=== PATIENT | male | born 1945 | race Caucasian/White ===

== ENCOUNTER 2020-01-20 19:51 | Inpatient (IN) ==
--- NOTE | 2020-01-20 20:17 | CT Scan Report ---
CT head/brain wo con CLINICAL HISTORY: Stroke evaluation LEFT ARM WEAKNESS COMPARISON STUDY: No previous studies for comparison. TECHNIQUE: Axial CT of the brain is performed from the vertex to the skull base. IV contrast was not administered for this examination. A dose lowering technique was utilized adhering to the principles of ALARA. CT DOSE: FINDINGS: No intra or extra-axial mass lesions are visualized. There is no CT evidence of acute cortical infarc tion. There is no evidence of midline shift. There is no acute hemorrhage. No calvarial fractures ar e visualized. There are minor white matter hypodensities likely on a small vessel basis. There is no evidence of pathologic ventricular dilatation. There is no evidence of acute sinusitis IMPRESSION: No acute intracranial findings ACT 112: Negative or not required by law. Electronically signed by: Rodriguez Veloz M.D. 01/20/2020 8:16 PM
[2020-01-20 20:19] LABS: Basophils # (auto) 0.01 K/uL (0-0.2); Basophils % (auto) 0.1 %; Eosinophils # (auto) 0.06 K/uL (0-0.5); Eosinophils % (auto) 0.8 %; Hematocrit (blood only) 37.3 % (42-52); Hemoglobin 12.3 g/dL (14.0-18.0); Immature Granulocytes # (auto) 0.26 K/uL (0.00-0.02); Immature Granulocytes % (auto) 3.4 %; Lymphocytes # (auto) 1.13 K/uL (1.2-3.4); Lymphocytes % (auto) 14.8 %; Mean Corpuscular Hemoglobin 28.1 pg (25-34); Mean Corpuscular Volume 85.2 fL (80-100); Mean Platelet Volume 9.8 fL (7.4-10.4); Monocytes % (auto) 3.9 %; Neutrophils # (auto) 5.87 K/uL (1.4-6.5); Platelet Count 169 K/uL (130-400); RDW Coefficient of Variation 17.6 % (11.5-14.5); RDW Standard Deviation 54.8 fL (36.4-46.3); Red Blood Count 4.38 M/uL (4.7-6.1); White Blood Count 7.63 K/uL (4.8-10.8)
[2020-01-20] MEDS ORDERED: ONDANSETRON INJ 2 MG/ML 2 ML VIAL IV STA (20:24)
[2020-01-20 20:26] LABS: iSTAT Creatinine 1.5 mg/dl (0.6-1.3); iSTAT Hemoglobin 12.6 g/dl (14.0-18.0); iSTAT Ionized Calcium 1.22 mmol/l (1.12-1.32); iSTAT Potassium 3.9 mmol/L (3.3-5.0)
[2020-01-20 20:36] LABS: INR 1.8 (0.9-1.1); Partial Thromboplastin Time 26.7 Seconds (21.0-31.0); Prothrombin Time 18.8 Seconds (9.0-12.0)
[2020-01-20 20:38] LABS: Alanine Aminotransferase 190 U/L (12-78); Albumin Level 3.3 gm/dl (3.4-5.0); Aspartate Aminotransferase 106 U/L (15-37); BUN Creatinine Ratio 22.5 (10-20); Blood Urea Nitrogen 38 mg/dl (7-18); Calcium 8.8 mg/dl (8.5-10.1); Carbon Dioxide 27 mmol/L (21-32); Chloride 107 mmol/L (98-107); Est GFR (African American) 44.7; Est GFR (Non-African American) 38.6; Glucose 172 mg/dl (70-99); Magnesium 2.4 mg/dl (1.8-2.4); Sodium 142 mmol/L (136-145)
[2020-01-20 20:43] LABS: Albumin Globulin Ratio 1.1 (0.9-2); Alkaline Phosphatase 103 U/L (45-117); Bilirubin,Total 0.5 mg/dl (0.2-1); Globulin 3.1 gm/dl (2.5-4.0); Total Protein 6.4 gm/dl (6.4-8.2); Troponin I < 0.015 ng/ml (0-0.045)
--- NOTE | 2020-01-20 21:42 | Emergency Department Note ---
History of Present Illness General Chief complaint: TIA Symptoms Stated complaint: BLURRY VISION,SLURRED SPEECH Time Seen by Provider: 01/20/20 19:58 History of Present Illness Provider complaint: Slurred speech facial droop Onset (ago): hour(s) 1 Location: head Associated symptoms: + weakness; no chest pain, no fever/chills, no headaches, no rash, no seizure and no shortness of breath 74-year-old male presents emergency department with facial droop weakness and slurred speech. Son at bedside reports the patient's symptoms patient symptoms began 1 hour ago after eating eating. Patient denies any fevers. Mild headache. Patient is on Coumadin. Patient also has a history of a ascending thoracic aortic aneurysm. Patient reports he had urinary incontinence yesterday. Currently denies any numbness or tingling. Currently denies any back pain. Patient is visiting his son from [facility]. Home Medications Home Medications Medication Instructions Recorded Confirmed Type albuterol sulfate [Ventolin HFA] 2 puff INHALATION Q4H PRN 01/20/20 01/20/20 His tory allopurinol 200 mg PO HS 01/20/20 01/20/20 History atorvastatin 80 mg PO HS 01/20/20 01/20/20 History azithromycin 250 mg PO 3XWK 01/20/20 01/20/20 History mrpqweg-[id number]-yrjf 1 tab PO DAILY 01/20/20 01/20/20 History cholecalciferol (vitamin D3) 2,000 unit PO DAILY 01/20/20 01/20/20 History [Vitamin D3] dulaglutide [Trulicity] 1.5 mg SUBCUT WK 01/20/20 01/20/20 History finasteride 5 mg PO QAM 01/20/20 01/20/20 History fluticasone propion-salmeterol 1 inh INHALATION Q12H 01/20/20 01/20/20 History [Wixela Inhub] gabapentin 300 mg PO BID 01/20/20 01/20/20 History insulin aspart U-100 See Rx Instructions .ROUTE .COMPLEX 01/20/20 01/20/20 History insulin degludec [Tresiba 100 unit SUBCUT QPM 01/20/20 01/20/20 History FlexTouch U-200] ipratropium-albuterol 3 ml INHALATION QID PRN 01/20/20 01/20/20 History isosorbide mononitrate 30 mg PO QAM 01/20/20 01/20/20 History nitroglycerin 0.4 mg SUBLINGUAL DIRECTED PRN 01/20/20 01/20/20 History omeprazole 40 mg PO QAM 01/20/20 01/20/20 History potassium chloride 10 meq PO BIDM 01/20/20 01/20/20 History prednisone 10 mg PO BID 01/20/20 01/20/20 History psyllium [Metamucil] 1 packet PO QAM 01/20/20 01/20/20 History topiramate [Topamax] 25 mg PO BID 01/20/20 01/20/20 History torsemide 20 mg PO DAILY 01/20/20 01/20/20 History trazodone 50 mg PO HS PRN 01/20/20 01/20/20 History Allergies Allergy/AdvReac Type Severity Reaction Status Date / Time Iodinated Contrast Media Allergy Severe Anaphylaxis Verified 01/20/20 21:36 shellfish derived Allergy Severe Anaphylaxis Verified 01/20/20 21:36 Tetanus Vaccines and Toxoid Allergy Unknown Unknown Verified 01/20/20 21:36 Past Med/Surg History Medical History (Updated 01/20/20 @ 21:54 by Camacho Theodore) Diabetes HLD (hyperlipidemia) Thoracic ascending aortic aneurysm Surgical History (Updated 01/20/20 @ 21:36 by Camacho Theodore) History of cholecystectomy History of gastric bypass Social History Smoking Status: Never smoker Feels Safe at Home: Yes Review of Systems A total of 10 systems reviewed and were otherwise negative Physical Exam Vital Signs Vital Signs - 24 hr 01/20/20 19:53 01/20/20 20:30 Temperature 36.4 C L Temperature Source Oral Pulse Rate 73 Pulse Rate [Apical] 74 Respiratory Rate 20 21 Blood Pressure 162/85 H Blood Pressure [Right Arm] 157/85 H Blood Pressure Mean 110 Blood Pressure Mean [Right Arm] 109 Blood Pressure Position Sitting Pulse Oximetry 100 99 Oxygen Delivery Method Room Air Sepsis Recent Fever Within 48 Hours No Sepsis New/Unexplained Change in Mental Status No Sepsis Action Taken by Nursing No Action Required Physical Exam GENERAL: He is oriented to person, place, and time. He appears well-developed and well-nourished. He does not appear distressed. HENT: Exam performed. - Head: Normocephalic and atraumatic. - Right Ear: External ear normal. No mastoid tenderness. - Left Ear: External ear normal. No mastoid tenderness. - Mouth/Throat: The oropharynx is clear and moist. No trismus in the jaw. No dental abscesses or uvula swelling. No oropharyngeal exudate or tonsillar abscesses. EYES: Conjunctivae and EOM are normal. Pupils are equal, round, and reactive to light. Right eye exhibits no discharge. Left eye exhibits no discharge. No scleral icterus. NECK: Normal range of motion. Neck supple. No JVD present. No spinous process tenderness present. No carotid bruit present. No rigidity. No tracheal deviation and normal range of motion present. No Brudzinski's sign and no Kernig's sign noted. CV: Normal rate, regular rhythm, normal heart sounds and intact distal pulses. There is no peripheral edema. Palpable radial pulses bue. PULM/CHEST: Effort normal and breath sounds normal. No respiratory distress. No stridor. He has no wheezes. He has no rales. - Chest Wall: He exhibits no tenderness. ABD: The abdomen is soft. Bowel sounds are normal. He has no distension. No mass is present. There is no tenderness. There is no rebound, no guarding, no Yi's sign and no tenderness at McBurney's point. Rovsig negative. MUSC/SKEL: Normal range of motion. There is no peripheral edema, tenderness or deformity. LYMPH: No cervical adenopathy. NEURO: He is alert and oriented to person, place, and time. NIHSS 4 (4:1 5A:1 9:1 10:1) SKIN: Skin is warm and dry. He is not diaphoretic. PSYCH: He has a normal mood and affect. Behavior is normal. Judgment and thought content normal. Course Course 1957: The patient was evaluated in room C12. A complete history and physical exam was performed. Patient was immediately seen in room C 12. Patient was placed on cardiac care nurse and large IV bore access was obtained. Patient has an NIH stroke scale of 4. Given his symptoms began 1 hour ago the patient will be taken for emergent CAT scan. Code stroke was called on the patient. Patient is on Coumadin. His last Coumadin level in the computer was 2.1. If his Coumadin is elevated patient will not be a TPA candidate but we will discuss with [facility] tele-neurology. 2018: I accompanied the patient to CT scan where he states he has an an aphylactic reaction to IV contrast. Given this, no CTA of the head and neck were performed as code stroke protocols. 2020: CT of the head viewed by me shows no large ICH. Discussed with Dr. Yomi Caputo tele-neurology who states she will evaluate the patient. 2051: Discussed with [facility] tele-neurology Dr. Celaya who states when she evaluate the patient patient is in a stroke scale 6. She states patient not a TPA candidate given his elevated INR level. She also recommends that the griffin ent be admitted to the hospital service with neurology consult. She recommends MRI of the head and MRA of the head. She also recommends MRI of the L-spine because the patient reported to her that he had urinary incontinence yesterday. I informed her that the patient has not reported any back pain and has not had any saddle anesthesia or paresthesias however Dr. Celaya still recommends MRI of the L-spine. It is thought that it is unlikely that the patient had true cord compression however we will follow the recommendations of tele-neurology. I discussed the case with [facility] hospitalist Dr. Dong who agreed to accept the patient for admission. She states that we can order the MRIs in the emergency department and she will follow-up on the MRI results on the floor if a bed is available. Administered Medications Discontinued Medications Acetaminophen (Ofirmev) 1,000 mg in 100 mls @ 400 mls/hr IV NOW STA Stop: 01/20/20 22:53 Last Infusion: 01/20/20 23:11 Dose: 0 mls/hr Documented by: [id number] Admin: 01/20/20 22:56 Dose: 400 mls/hr Documented by: [id number] Ondansetron HCl (Ondansetron Inj 2 Mg/Ml 2 Ml Vial) 4 mg IV NOW STA Stop: 01/20/20 20:25 Last Admin: 01/20/20 20:27 Dose: 4 mg Documented by: [id number] Critical Care Time Critical Care Time: Yes Total Critical Care Time: 49 I have personally spent greater than 49 minutes of critical care time in the direct management of this patient. This includes bedside care, interpretation of diagnostic studies, and testing, discussion with consultants, patient, and family members, and other required patient management activities. This 49 minutes is in excess of all separately billable procedures. Medical Decision Making Laboratory Data Result diagrams: 01/20/20 20:02 01/20/20 20:02 Lab Results 01/20/20 01/20/20 01/20/20 Range/Units 20:02 20:02 20:02 WBC 7.63 (4.8-10.8) K/uL RBC 4.38 L (4.7-6.1) M/uL Hgb 12.3 L (14.0-18.0) g/dL POC Hgb (14.0-18.0) g/dl Hct 37.3 L (42-52) % POC Hct (42-52) % MCV 85.2 (80-100) fL MCH 28.1 (25-34) pg MCHC 33.0 (32-36) g/dL RDW Std Deviation 54.8 H (36.4-46.3) fL RDW Coeff of Lianne 17.6 H (11.5-14.5) % Plt Count 169 (130-400) K/uL MPV 9.8 (7.4-10.4) fL Immature Gran % (Auto) 3.4 % Neut % (Auto) 77.0 % Lymph % (Auto) 14.8 % Early % (Auto) 3.9 % Eos % (Auto) 0.8 % Baso % (Auto) 0.1 % Neut # (Auto) 5.87 (1.4-6.5) K/uL Lymph # (Auto) 1.13 L (1.2-3.4) K/uL Early # (Auto) 0.30 (0.11-0.59) K/uL Eos # (Auto) 0.06 (0-0.5) K/uL Baso # (Auto) 0.01 (0-0.2) K/uL Immature Gran # (Auto) 0.26 H (0.00-0.02) K/uL PT 18.8 H (9.0-12.0) Seconds POC INR (0.9-1.1) INR 1.8 H (0.9-1.1) APTT 26.7 (21.0-31.0) Seconds PTT Ratio 1.0 POC Sodium (135-144) mmol/L Sodium 142 (136-145) mmol/L POC Potassium (3.3-5.0) mmol/L Potassium 4.0 (3.5-5.1) mmol/L POC Chloride (101-112) mmol/L Chloride 107 (98-107) mmol/L Carbon Dioxide 27 (21-32) mmol/L POC Total CO2 (24-31) mmol/L Anion Gap 8.0 (3-11) POC Anion Gap (16-25) mmol/L POC BUN (7-18) mg/dl BUN 38 H (7-18) mg/dl Creatinine 1.71 H (0.6-1.4) mg/dl POC Creatinine (0.6-1.3) mg/dl Est Cr Clr Drug Dosing Not Reportable Est GFR ( Amer) 44.7 Est GFR (Non-Af Amer) 38.6 BUN/Creatinine Ratio 22.5 H (10-20) Glucose 172 H (70-99) mg/dl POC Glucose (other) (70-99) mg/dl Calcium 8.8 (8.5-10.1) mg/dl POC Ioniz Calcium Dewey (1.12-1.32) mmol/l Magnesium 2.4 (1.8-2.4) mg/dl Total Bilirubin 0.5 (0.2-1) mg/dl AST 106 H (15-37) U/L ALT 190 H (12-78) U/L Alkaline Phosphatase 103 (45-117) U/L Troponin I < 0.015 (0-0.045) ng/ml Total Protein 6.4 (6.4-8.2) gm/dl Albumin 3.3 L (3.4-5.0) gm/dl Globulin 3.1 (2.5-4.0) gm/dl Albumin/Globulin Ratio 1.1 (0.9-2) Blood Type Antibody Screen 01/20/20 01/20/20 01/20/20 Range/Units 20:14 20:16 20:22 WBC (4.8-10.8) K/uL RBC (4.7-6.1) M/uL Hgb (14.0-18.0) g/dL POC Hgb 12.6 L (14.0-18.0) g/dl Hct (42-52) % POC Hct 37 L (42-52) % MCV (80-100) fL MCH (25-34) pg MCHC (32-36) g/dL RDW Std Deviation (36.4-46.3) fL RDW Coeff of Lianne (11.5-14.5) % Plt Count (130-400) K/uL MPV (7.4-10.4) fL Immature Gran % (Auto) % Neut % (Auto) % Lymph % (Auto) % Early % (Auto) % Eos % (Auto) % Baso % (Auto) % Neut # (Auto) (1.4-6.5) K/uL Lymph # (Auto) (1.2-3.4) K/uL Early # (Auto) (0.11-0.59) K/uL Eos # (Auto) (0-0.5) K/uL Baso # (Auto) (0-0.2) K/uL Immature Gran # (Auto) (0.00-0.02) K/uL PT (9.0-12.0) Seconds POC INR 1.9 H (0.9-1.1) INR (0.9-1.1) APTT (21.0-31.0) Seconds PTT Ratio POC Sodium 140 (135-144) mmol/L Sodium (136-145) mmol/L POC Potassium 3.9 (3.3-5.0) mmol/L Potassium (3.5-5.1) mmol/L POC Chloride 104 (101-112) mmol/L Chloride (98-107) mmol/L Carbon Dioxide (21-32) mmol/L POC Total CO2 24 (24-31) mmol/L Anion Gap (3-11) POC Anion Gap 17.0 (16-25) mmol/L POC BUN 34 H (7-18) mg/dl BUN (7-18) mg/dl Creatinine (0.6-1.4) mg/dl POC Creatinine 1.5 H (0.6-1.3) mg/dl Est Cr Clr Drug Dosing Est GFR ( Amer) Est GFR (Non-Af Amer) BUN/Creatinine Ratio (10-20) Glucose (70-99) mg/dl POC Glucose (other) 165 H (70-99) mg/dl Calcium (8.5-10.1) mg/dl POC Ioniz Calcium Dewey 1.22 (1.12-1.32) mmol/l Magnesium (1.8-2.4) mg/dl Total Bilirubin (0.2-1) mg/dl AST (15-37) U/L ALT (12-78) U/L Alkaline Phosphatase (45-117) U/L Troponin I (0-0.045) ng/ml Total Protein (6.4-8.2) gm/dl Albumin (3.4-5.0) gm/dl Globulin (2.5-4.0) gm/dl Albumin/Globulin Ratio (0.9-2) Blood Type O Positive Antibody Screen NEGATIVE Imaging Data Radiologist's Impression: CT head/brain wo con CLINICAL HISTORY: Stroke evaluation LEFT ARM WEAKNESS COMPARISON STUDY: No previous studies for comparison. TECHNIQUE: Axial CT of the brain is performed from the vertex to the skull base. IV contrast was not administered for this examination. A dose lowering technique was utilized adhering to the principles of ALARA. CT DOSE: FINDINGS: No intra or extra-axial mass lesions are visualized. There is no CT evidence of acute cortical infarction. There is no evidence of midline shift. There is no a cute hemorrhage. No calvarial fractures are visualized. There are minor white matter hypodensities likely on a small vessel basis. There is no evidence of pathologic ventricular dilatation. There is no evidence of acute sinusitis IMPRESSION: No acute intracranial findings ACT 112: Negative or not required by law. Electronically signed by: Rodriguez Veloz M.D. 01/20/2020 8:16 PM Dictated: 01/20/202014 Transcribed: 01/20/202014 ECG Data Indication: + other (Stroke) Rate (beats per minute): 72 Rhythm: + normal sinus ECG Intervals/blocks: + Normal QRS, + Normal NE and + Normal QT-c ECG ST segments: no ST depression and no ST elevation ECG Findings: + PVCs Additional Comments: Baseline artifact due to patient movement MDM Narrative 1958: The patient was evaluated in room C12. A complete history and physical exam was performed. Patient was immediately seen in room C 12. Patient was placed on cardiac care nurse and large IV bore access was obtained. Patient has an NIH stroke scale of 4. Given his symptoms began 1 hour ago the patient will be taken for emergent CAT scan. Code stroke was called on the patient. Patient is on Coumadin. His last Coumadin level in the computer was 2.1. If his Coumadin is elevated patient will not be a TPA candidate but we will discuss with [facility] tele-neurology. 2018: I accompanied the patient to CT scan where he states he has an anaphylactic reaction to IV contrast. Given this, no CTA of the head and neck were performed as code stroke protocols. 2020: CT of the head viewed by me shows no large ICH. Discussed with Dr. Yomi Caputo tele-neurology who states she will evaluate the patient. 2051: Discussed with [facility] tele-neurology Dr. Celaya who states when she evaluate the patient patient is in a stroke scale 6. She states patient not a TPA candidate given his elevated INR level. She also recommends that the patient be admitted to the hospital service with neurology consult. She recommends MRI of the head and MRA of the head. She also recommends MRI of the L-spine because the patient reported to her that he had urinary incontinence yesterday. I informed her that the patient has not reported any back pain and has not had any saddle anesthesia or paresthesias however Dr. Celaya still recommends MRI of the L-spine. It is thought that it is unlikely that the patient had true cord compression however we will follow the recommendations of tele-neurology. I discussed the case with [facility] hospitalist Dr. Dong who agreed to accept the patient for admission. She states that we can order the MRIs in the emergency department and she will follow-up on the MRI results on the floor if a bed is available. Impression & Plan Cerebrovascular accident Discharge Plan Visit Data Chief Complaint: TIA Symptoms Stated Complaint: BLURRY VISION,SLURRED SPEECH ED Provider: Camacho Theodore Discharge Problem: Cerebrovascular accident Patient Disposition: Admitted As Inpatient Forms Stand Alone Forms: My [facility] Prescriptions Prescriptions: No Action fluticasone propion-salmeterol [Wixela Inhub] 250-50 mcg/dose Blister With Device 1 inh INHALATION Q12H RF: 0 atorvastatin 80 mg Tablet 80 mg PO HS RF: 0 ipratropium-albuterol 0.5 mg-3 mg(2.5 mg base)/3 mL Solution For Nebulization 3 ml INHALATION QID PRN (Reason: Shortness Of Breath Or Wheezing) RF: 0 torsemide 20 mg Tablet 20 mg PO DAILY RF: 0 trazodone 50 mg Tablet 50 mg PO HS PRN (Reason: Sleep) RF: 0 azithromycin 250 mg Tablet 250 mg PO 3XWK RF: 0 isosorbide mononitrate 30 mg Tablet Extended Release 24 Hr 30 mg PO QAM RF: 0 Metamucil Packet 1 packet PO QAM RF: 0 prednisone 5 mg Tablet 10 mg PO BID RF: 0 topiramate [Topamax] 25 mg Tablet 25 mg PO BID RF: 0 potassium chloride 10 mEq Tablet Extended Release 10 meq PO BIDM RF: 0 allopurinol 100 mg Tablet 200 mg PO HS RF: 0 omeprazole 40 mg Capsule,Delayed Release(Dr/Ec) 40 mg PO QAM RF: 0 nitroglycerin 0.4 mg Tablet, Sublingual 0.4 mg sublingual DIRECTED PRN (Reason: Chest Pain) RF: 0 gabapentin 300 mg Capsule 300 mg PO BID RF: 0 albuterol sulfate [Ventolin HFA] 90 mcg/actuation Hfa Aerosol Inhaler 2 puff INHALATION Q4H PRN (Reason: Wheezing) RF: 0 finasteride 5 mg Tablet 5 mg PO QAM RF: 0 insulin aspart U-100 100 unit/mL (3 mL) Insulin Pen See Rx Instructions .ROUTE .COMPLEX RF: 0 Tresiba FlexTouch U-200 200 unit/mL (3 mL) Insulin Pen 100 unit SUBCUT QPM RF: 0 Trulicity 1.5 mg/0.5 mL Pen Injector 1.5 mg SUBCUT WK RF: 0 [id number] Tablet 1 tab PO DAILY RF: 0 cholecalciferol (vitamin D3) [Vitamin D3] 50 mcg (2,000 unit) Capsule 2,000 unit PO DAILY RF: 0 Referrals Referrals: PCP,NO [Primary Care Provider] - Discharge Problem: Cerebrovascular accident Qualifiers: CVA mechanism: unspecified Qualified Code(s): I63.9 - Cerebral infarction, unspecified
[2020-01-20] MEDS ORDERED: ACETAMINOPHEN 1,000 MG/100 ML VIAL IV STA (22:39)
--- NOTE | 2020-01-20 22:39 | History & Physical Report ---
Date of Service January 20, 2020 Assessment & Plan (1) Stroke-like symptoms: ?CVA/TIA, ?Seizure, ?Arrhythmia. 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 -Admit to medical floor with telemetry -Daily NIHSS, Neuro checks per protocol -Formal swallow evaluation given patient's facial droop -PT/OT -EEG ordered -MRIs performed, reading pending -Neurology consultation appreciated -Check Lipids, AIC Present on Admission?: Yes (2) History of aortic valve replacement: Chronic. Stable -Continue Coumadin -Monitor INR Present on Admission?: Yes (3) Polymyositis: Chronic -Check ESR -Obtain old records -Continue Prednisone 10mg po BID -Continue prophylactic Azithromycin Present on Admission?: Yes (4) Interstitial lung disease: Chronic. Stable. No respiratory complaints -Continue Prednisone -Albuterol as needed -Continue Fluticasone/Vilanterol Present on Admission?: Yes (5) CAD (coronary artery disease): Chronic. Stable. No CP -Continue Atorvastatin -Patient is not on ASA, ALMA-inhibitor or BB (states he cannot tolerate Beta- blockers) Present on Admission?: Yes (6) Rheumatoid arthritis: Chronic -Obtain records -Continue Prednisone, Azithro Present on Admission?: Yes (7) Diabetes: Blood sugar lower than normal for patient -D5 1/2 NSS drip -ISS as needed -Continue Gabapentin History of Present Illness Chief Complaint: stroke-like symptoms Primary Care Provider: NO PCP Xavi Bradford is a 74yo C male presenting with stroke-like symptoms. Patient has a complicated medical history. He typically resides alone in [place], [place] but is currently staying with his son due to recent increase in falls. He reports increase in falls over the last few months. He was recently hospitalized at [facility] from 12/30 - 01/10 for complications following a fall. He was originally to be placed in rehab, however, this was reportedly denied by insurance. Patient declined placement in a skilled nursing due to concern for Covid-19. Patients son states that patient has episodes where he has a blank affect and stare then begins to shake and wobble. Occasionally he falls during these episodes. He then has a brief period of confusion following these episodes before returning to baseline. Patient reports that he has woken up on the floor before not knowing how he got there or having any recollection of falling. Yesterday the patient was at an appointment and he had an episode of urinary incontinence. He reports standing up and losing control of his bladder, passing a large amount of urine on the chair. He states he did not feel the sensation of a full bladder. He has been incontinent of urine since yesterday. He also reports diminished bowel sensation. He states he is unable to fully empty his bowels and has some fecal retention at times with stool leakage. Additionally patient reports a dull frontal headache since yesterday, constant over the last 24 hours and associated with some nausea. Today around 19:00 he had some difficulty standing and an episode of slurred speech, facial droop and weakness of the right side. He reports blurry vision in his right eye He denies back pain, neck stiffness, fever, chills, vomiting, diarrhea, constipation, dysuria. Denies rashes, joint pain or inflammation. No visual disturbance at present. No pain with eye movement. No recent head trauma. Patient has history of RA and Polymyositis with lung involvement. He states that these conditions presented suddenly as dyspnea. He was evaluated at [facility] for theses conditions. He has undergone infusions of Rituximab x 2, he believes they were 6 months ago and 3 months ago. Allergies Allergy/AdvReac Type Severity Reaction Status Date / Time Iodinated Contrast Media Allergy Severe Anaphylaxis Verified 01/20/20 21:36 shellfish derived Allergy Severe Anaphylaxis Verified 01/20/20 21:36 Tetanus Vaccines and Toxoid Allergy Unknown Unknown Verified 01/20/20 21:36 Home Medications Home Medications Medication Instructions Recorded Confirmed Type albuterol sulfate [Ventolin HFA] 2 puff INHALATION Q4H PRN 01/20/20 01/20/20 History allopurinol 200 mg PO HS 01/20/20 01/20/20 History atorvastatin 80 mg PO HS 01/20/20 01/20/20 History azithromycin 250 mg PO 3XWK 01/20/20 01/20/20 History oucdmbi-wbagintvq-naby 1 tab PO DAILY 01/20/20 01/20/20 History cholecalciferol (vitamin D3) 2,000 unit PO DAILY 01/20/20 01/20/20 History [Vitamin D3] dulaglutide [Trulicity] 1.5 mg SUBCUT WK 01/20/20 01/20/20 History finasteride 5 mg PO QAM 01/20/20 01/20/20 History fluticasone propion-salmeterol 1 inh INHALATION Q12H 01/20/20 01/20/20 History [Wixela Inhub] gabapentin 300 mg PO BID 01/20/20 01/20/20 History insulin aspart U-100 See Rx Instructions .ROUTE .COMPLEX 01/20/20 01/20/20 History insulin degludec [Tresiba 100 unit SUBCUT QPM 01/20/20 01/20/20 History FlexTouch U-200] ipratropium-albuterol 3 ml INHALATION QID PRN 01/20/20 01/20/20 History isosorbide mononitrate 30 mg PO QAM 01/20/20 01/20/20 History nitroglycerin 0.4 mg SUBLINGUAL DIRECTED PRN 01/20/20 01/20/20 History omeprazole 40 mg PO QAM 01/20/20 01/20/20 History potassium chloride 10 meq PO BIDM 01/20/20 01/20/20 History prednisone 10 mg PO BID 01/20/20 01/20/20 History psyllium [Metamucil] 1 packet PO QAM 01/20/20 01/20/20 History topiramate [Topamax] 25 mg PO BID 01/20/20 01/20/20 History torsemide 20 mg PO DAILY 01/20/20 01/20/20 History trazodone 50 mg PO HS PRN 01/20/20 01/20/20 History warfarin 5 mg PO DAILY 01/21/20 01/21/20 History Past Med/Surg History Medical History (Updated 01/21/20 @ 05:19 by Ana Dong DO) CAD (coronary artery disease) Diabetes HLD (hyperlipidemia) Interstitial lung disease Polymyositis Prostate cancer s/p XRT Thoracic ascending aortic aneurysm s/p repair Surgical History (Updated 01/21/20 @ 05:12 by Ana Dong DO) H/O hernia repair History of aortic valve replacement mechanical History of cholecystectomy History of fusion of cervical spine History of gastric bypass lap band History of heart artery stent History of lung biopsy 2019 History of partial nephrectomy Family History (Updated 01/21/20 @ 05:06 by Ana Dong DO) Other Coronary heart disease Rheumatoid arthritis Stroke Social History (Updated 01/21/20 @ 05:10 by Ana Dong DO) Smoking Status: Never smoker Hx Alcohol Use: No Hx Substance Use: No Preferred Language: Iranian Communication Ability: Effective Hearing Ability: Hard of Hearing Matrix Drier Tender Required: No Beliefs That Will Affect Care: None Current Living Situation: Alone and Family Current Living Situation Comment: son Feels Safe at Home: Yes Assistive Devices: Hearing Aid - Left, Hearing Aid - Right, Oxygen - at Night and Walker Review of Systems Review of Systems: All systems reviewed & are unremarkable except as noted in HPI & below +Poor sleep +Poor appetite +Shaking +Eyes burning Physical Exam Physical Exam: General: patient resting comfortably, NAD, non-toxic in appearance, AA&O x 4 Skin: warm, dry, intact, no rashes or lesions HEENT: NC/AT, PERRL, EOMI, anicteric sclera, conjunctiva without injection, external ear normal to inspection and nontender, nares patent, moist mucus membranes, dentition intact, no oropharyngeal lesions, neck supple, trachea midline, no LAD, no thyromegaly, no JVD, hearing aides in place Heart: +S1/S2, regular, no m/r/g, audible click from mechanical valve Lungs: equal air entry bilaterally, no rales/rhonchi/wheezes Abd: +BS, soft, NT/ND, no masses/organomegaly/ascites Ext: warm, 2+ pulses in UE/LE bilaterally, no clubbing/cyanosis or edema Neuro: patient with slight right facial droop, diminished strength 4/5 in RUE/RLE, tremor Results & Data Results & Data ([facility]) Vital Signs (Past 12 Hours) Vital Signs Temp Pulse Pulse Resp BP BP Pulse Ox 01/20/20 20:30 74 21 157/85 H 99 01/20/20 19:53 36.4 C L 73 20 162/85 H 100 Laboratory Results Lab Results 01/20/20 01/20/20 01/20/20 Range/Units 20:02 20:02 20:02 WBC 7.63 (4.8-10.8) K/uL RBC 4.38 L (4.7-6.1) M/uL Hgb 12.3 L (14.0-18.0) g/dL POC Hgb (14.0-18.0) g/dl Hct 37.3 L (42-52) % POC Hct (42-52) % MCV 85.2 (80-100) fL MCH 28.1 (25-34) pg MCHC 33.0 (32-36) g/dL RDW Std Deviation 54.8 H (36.4-46.3) fL RDW Coeff of Lianne 17.6 H (11.5-14.5) % Plt Count 169 (130-400) K/uL MPV 9.8 (7.4-10.4) fL Immature Gran % (Auto) 3.4 % Neut % (Auto) 77.0 % Lymph % (Auto) 14.8 % Cobb % (Auto) 3.9 % Eos % (Auto) 0.8 % Baso % (Auto) 0.1 % Neut # (Auto) 5.87 (1.4-6.5) K/uL Lymph # (Auto) 1.13 L (1.2-3.4) K/uL Cobb # (Auto) 0.30 (0.11-0.59) K/uL Eos # (Auto) 0.06 (0-0.5) K/uL Baso # (Auto) 0.01 (0-0.2) K/uL Immature Gran # (Auto) 0.26 H (0.00-0.02) K/uL PT 18.8 H (9.0-12.0) Seconds POC INR (0.9-1.1) INR 1.8 H (0.9-1.1) APTT 26.7 (21.0-31.0) Seconds PTT Ratio 1.0 POC Sodium (135-144) mmol/L Sodium 142 (136-145) mmol/L POC Potassium (3.3-5.0) mmol/L Potassium 4.0 (3.5-5.1) mmol/L POC Chloride (101-112) mmol/L Chloride 107 (98-107) mmol/L Carbon Dioxide 27 (21-32) mmol/L POC Total CO2 (24-31) mmol/L Anion Gap 8.0 (3-11) POC Anion Gap (16-25) mmol/L POC BUN (7-18) mg/dl BUN 38 H (7-18) mg/dl Creatinine 1.71 H (0.6-1.4) mg/dl POC Creatinine (0.6-1.3) mg/dl Est Cr Clr Drug Dosing Not Reportable Est GFR ( Amer) 44.7 Est GFR (Non-Af Amer) 38.6 BUN/Creatinine Ratio 22.5 H (10-20) Glucose 172 H (70-99) mg/dl POC Glucose (70-99) mg/dl POC Glucose (other) (70-99) mg/dl Calcium 8.8 (8.5-10.1) mg/dl POC Ioniz Calcium Dewey (1.12-1.32) mmol/l Magnesium 2.4 (1.8-2.4) mg/dl Total Bilirubin 0.5 (0.2-1) mg/dl AST 106 H (15-37) U/L ALT 190 H (12-78) U/L Alkaline Phosphatase 103 (45-117) U/L Troponin I < 0.015 (0-0.045) ng/ml Total Protein 6.4 (6.4-8.2) gm/dl Albumin 3.3 L (3.4-5.0) gm/dl Globulin 3.1 (2.5-4.0) gm/dl Albumin/Globulin Ratio 1.1 (0.9-2) Blood Type Antibody Screen 01/20/20 01/20/20 01/20/20 Range/Units 20:14 20:16 20:22 WBC (4.8-10.8) K/uL RBC (4.7-6.1) M/uL Hgb (14.0-18.0) g/dL POC Hgb 12.6 L (14.0-18.0) g/dl Hct (42-52) % POC Hct 37 L (42-52) % MCV (80-100) fL MCH (25-34) pg MCHC (32-36) g/dL RDW Std Deviation (36.4-46.3) fL RDW Coeff of Lianne (11.5-14.5) % Plt Count (130-400) K/uL MPV (7.4-10.4) fL Immature Gran % (Auto) % Neut % (Auto) % Lymph % (Auto) % Cobb % (Auto) % Eos % (Auto) % Baso % (Auto) % Neut # (Auto) (1.4-6.5) K/uL Lymph # (Auto) (1.2-3.4) K/uL Cobb # (Auto) (0.11-0.59) K/uL Eos # (Auto) (0-0.5) K/uL Baso # (Auto) (0-0.2) K/uL Immature Gran # (Auto) (0.00-0.02) K/uL PT (9.0-12.0) Seconds POC INR 1.9 H (0.9-1.1) INR (0.9-1.1) APTT (21.0-31.0) Seconds PTT Ratio POC Sodium 140 (135-144) mmol/L Sodium (136-145) mmol/L POC Potassium 3.9 (3.3-5.0) mmol/L Potassium (3.5-5.1) mmol/L POC Chloride 104 (101-112) mmol/L Chloride (98-107) mmol/L Carbon Dioxide (21-32) mmol/L POC Total CO2 24 (24-31) mmol/L Anion Gap (3-11) POC Anion Gap 17.0 (16-25) mmol/L POC BUN 34 H (7-18) mg/dl BUN (7-18) mg/dl Creatinine (0.6-1.4) mg/dl POC Creatinine 1.5 H (0.6-1.3) mg/dl Est Cr Clr Drug Dosing Est GFR ( Amer) Est GFR (Non-Af Amer) BUN/Creatinine Ratio (10-20) Glucose (70-99) mg/dl POC Glucose (70-99) mg/dl POC Glucose (other) 165 H (70-99) mg/dl Calcium (8.5-10.1) mg/dl POC Ioniz Calcium Dewey 1.22 (1.12-1.32) mmol/l Magnesium (1.8-2.4) mg/dl Total Bilirubin (0.2-1) mg/dl AST (15-37) U/L ALT (12-78) U/L Alkaline Phosphatase (45-117) U/L Troponin I (0-0.045) ng/ml Total Protein (6.4-8.2) gm/dl Albumin (3.4-5.0) gm/dl Globulin (2.5-4.0) gm/dl Albumin/Globulin Ratio (0.9-2) Blood Type O Positive Antibody Screen NEGATIVE 01/21/20 Range/Units 02:39 WBC (4.8-10.8) K/uL RBC (4.7-6.1) M/uL Hgb (14.0-18.0) g/dL POC Hgb (14.0-18.0) g/dl Hct (42-52) % POC Hct (42-52) % MCV (80-100) fL MCH (25-34) pg MCHC (32-36) g/dL RDW Std Deviation (36.4-46.3) fL RDW Coeff of Lianne (11.5-14.5) % Plt Count (130-400) K/uL MPV (7.4-10.4) fL Immature Gran % (Auto) % Neut % (Auto) % Lymph % (Auto) % Cobb % (Auto) % Eos % (Auto) % Baso % (Auto) % Neut # (Auto) (1.4-6.5) K/uL Lymph # (Auto) (1.2-3.4) K/uL Cobb # (Auto) (0.11-0.59) K/uL Eos # (Auto) (0-0.5) K/uL Baso # (Auto) (0-0.2) K/uL Immature Gran # (Auto) (0.00-0.02) K/uL PT (9.0-12.0) Seconds POC INR (0.9-1.1) INR (0.9-1.1) APTT (21.0-31.0) Seconds PTT Ratio POC Sodium (135-144) mmol/L Sodium (136-145) mmol/L POC Potassium (3.3-5.0) mmol/L Potassium (3.5-5.1) mmol/L POC Chloride (101-112) mmol/L Chloride (98-107) mmol/L Carbon Dioxide (21-32) mmol/L POC Total CO2 (24-31) mmol/L Anion Gap (3-11) POC Anion Gap (16-25) mmol/L POC BUN (7-18) mg/dl BUN (7-18) mg/dl Creatinine (0.6-1.4) mg/dl POC Creatinine (0.6-1.3) mg/dl Est Cr Clr Drug Dosing Est GFR ( Amer) Est GFR (Non-Af Amer) BUN/Creatinine Ratio (10-20) Glucose (70-99) mg/dl POC Glucose 80 (70-99) mg/dl POC Glucose (other) (70-99) mg/dl Calcium (8.5-10.1) mg/dl POC Ioniz Calcium Dewey (1.12-1.32) mmol/l Magnesium (1.8-2.4) mg/dl Total Bilirubin (0.2-1) mg/dl AST (15-37) U/L ALT (12-78) U/L Alkaline Phosphatase (45-117) U/L Troponin I (0-0.045) ng/ml Total Protein (6.4-8.2) gm/dl Albumin (3.4-5.0) gm/dl Globulin (2.5-4.0) gm/dl Albumin/Globulin Ratio (0.9-2) Blood Type Antibody Screen Diagnostic Findings MRI Brain, MRA Head/Neck, MRI Lumbar Spine performed - STAT rad reading pending CT head/brain wo con CLINICAL HISTORY: Stroke evaluation LEFT ARM WEAKNESS COMPARISON STUDY: No previous studies for comparison. TECHNIQUE: Axial CT of the brain is performed from the vertex to the skull base. IV contrast was not administered for this examination. A dose lowering technique was utilized adhering to the principles of ALARA. CT DOSE: FINDINGS: No intra or extra-axial mass lesions are visualized. There is no CT evidence of acute cortical infarction. There is no evidence of midline shift. There is no acute hemorrhage. No calvarial fractures are visualized. There are minor white matter hypodensities likely on a small vessel basis. There is no evidence of pathologic ventricular dilatation. There is no evidence of acute sinusitis IMPRESSION: No acute intracranial findings ACT 112: Negative or not required by law. Electronically signed by: Rodriguez Veloz M.D. 01/20/2020 8:16 PM Dictated: 01/20/202014 Transcribed: 01/20/202014 Code Status & VTE Plan Code Status conditional PG Care Time/CCT Total # of Minutes Spent Total Time Spent with Patient: Total time spent is greater than 50% in coordination of care (as documented) at patient's floor/unit and/or counseling patient: Coding Level of Care Code 39200 Initial Inpt Care Lvl 3 Diagnoses Stroke-like symptoms R29.90 History of aortic valve replacement Z95.2 Polymyositis M33.20 Interstitial lung disease J84.9 CAD (coronary artery disease) I25.10 Coronary Disease-Associated Artery/Lesion type: [place] artery [place] vs. transplanted heart: [place] heart Associated angina: without angina Rheumatoid arthritis M06.9 Diabetes E11.9 (1) CAD (coronary artery disease) Coronary Disease-Associated Artery/Lesion type: [place] artery [place] vs. transplanted heart: [place] heart Associated angina: without angina Qualified Code(s): I25.10 - Atherosclerotic heart disease of [place] coronary artery without angina pectoris
[2020-01-21] MEDS ORDERED: GLUCOSE 40% GEL 15 GM TUBE PO PRN (01:49)
[2020-01-21] MEDS ORDERED: PHARMACIST DISCHARGE MED REC CONSULT PRN (01:49)
[2020-01-21] MEDS ORDERED: CARBOHYDRATES FOR HYPOGLYCEMIA PO PRN (01:49)
[2020-01-21] MEDS ORDERED: ALBUTEROL HFA 8 GM INHALER INH PRN (01:49)
[2020-01-21] MEDS ORDERED: TRAZODONE HCL 50 MG TAB PO PRN (01:49)
[2020-01-21] MEDS ORDERED: GLUCAGON FOR INJ 1 MG VIAL SQ PRN (01:49)
[2020-01-21] MEDS ORDERED: GLUCOSE 10 TABS/TUBE PO PRN (01:49)
[2020-01-21] MEDS ORDERED: NON-FORMULARY MEDICATION (Dulaglutide [Trulicity] 1.5 MG) SQ SCH (01:49)
[2020-01-21] MEDS ORDERED: ALBUT/IPRATROP 3MG/0.5MG NEB 3 ML VIAL INH PRN (01:49)
[2020-01-21] MEDS ORDERED: GADOBUTROL 65ML VIAL IV ONE (02:15)
[2020-01-21] MEDS ORDERED: PHARMACY GLYCEMIC MGMT CONSULT PRN (02:19)
[2020-01-21] MEDS: INSULIN ASPART 100 UNITS/ML 3 ML PEN SC SCH ×5 (02:44→21:18)
[2020-01-21] MEDS ORDERED: D5W AND 1/2NSS 1,000 ML IV SCH (02:45)
--- NOTE | 2020-01-21 06:56 | Magnetic Resonance Report ---
MR angio neck wo/w con CLINICAL HISTORY: ?CVA COMPARISON STUDY: No previous studies for comparison. TECHNIQUE: Utilizing a 1.5 Eboni magnet and dedicated coil, unenhanced and contrast-enhanced MRA of t he neck was performed FINDINGS: No vessel occlusion is identified. The left vertebral artery is hypoplastic. The right vert ebral artery is dominant. There is irregularity suggestive of plaque within the proximal bilateral in ternal carotid arteries, greater on the right. However, there is no evidence for stenosis. Soft tissu es within the neck are suboptimally assessed utilizing this technique. There is susceptibility artifa ct from median sternotomy wires. IMPRESSION: 1. No stenosis or dissection within neck. 2. Atherosclerotic plaque within the proximal bilateral internal carotid arteries, greater on the rig ht. No resultant stenosis. 3. Hypoplastic left vertebral artery. ACT 112: Negative or not required by law. Electronically signed by: John Paul Drummond M.D. 01/21/2020 6:54 AM
--- NOTE | 2020-01-21 07:00 | Magnetic Resonance Report ---
MR angio head wo con HISTORY: 74 years-old Male code stroke acute strokelike symptoms with blurry vision COMPARISON: Head CT of same day, brain MRI 01/21/2020 TECHNIQUE: MRA of the head was obtained without the use of IV contrast utilizing 3-D [id number] s equencing with MIP reformats. All measurements were obtained according to NASCET criteria. FINDINGS: The imaged bilateral internal carotid arteries are widely patent. The study is mildly motion degraded . The middle and anterior cerebral arteries are widely patent. The imaged vertebral arteries are louise nt. The V4 segment left vertebral artery is diminutive and predominantly terminates into the left PIC A. Patent basilar artery. origin of the right posterior cerebral artery. The bilateral posterio r cerebral arteries are widely patent. There is no aneurysm, dissection, high-grade stenosis or proxi mal branch occlusion. IMPRESSION: Unremarkable MRA of the head. ACT 112: Negative or not required by law. The above report was generated using voice recognition software. It may contain grammatical, syntax o r spelling errors. Electronically signed by: Terry Orozco M.D. 01/21/2020 6:59 AM
--- NOTE | 2020-01-21 07:22 | Magnetic Resonance Report ---
MR brain wo/w con HISTORY: 74 years-old Male code stroke acute strokelike symptoms COMPARISON: Head CT of same day TECHNIQUE: Multiplanar multisequence MRI of the brain was obtained both with and without the use of 1 1.5 mL Gadavist FINDINGS: Partially empty sella. Midline structures including the corpus callosum, brainstem, optic chiasm and pineal gland appear unremarkable the sagittal T1 series. No cerebellar tonsillar herniation. Degenera tive changes are noted involving the imaged cervical spine. Motion degraded exam. There is no restricted diffusion to suggest acute or subacute infarct. No acute intracranial hemorrha ge, midline shift, abnormal extra-axial collection, hydrocephalus or intracranial mass. Age-related i nvolutional changes. Mild scattered T2/FLAIR hyperintensities throughout the white matter. The bilate ral mesial temporal lobes appear normal and symmetric. There is no evidence of mesial temporal sclero sis. Major vascular flow voids are patent and within normal limits. Moderate bilateral mastoid effusi ons. Mild mucosal thickening of the paranasal sinuses. The skull and soft tissues are unremarkable. P rior bilateral lens replacement. There is no abnormal intra-axial or extra-axial enhancement. 6 mm T2 hyperintense focus of the inferior right cerebellar hemisphere may reflect a remote lacunar infarct. IMPRESSION: 1. No acute intracranial abnormality, specifically there is no evidence of acute or subacute infarct. 2. Age-related involutional changes with mild T2/FLAIR hyperintensities throughout the white matter s uggestive of probable chronic microvascular ischemic disease. 3. No abnormal enhancement. ACT 112: Negative or not required by law. The above report was generated using voice recognition software. It may contain grammatical, syntax o r spelling errors. Electronically signed by: Terry Orozco M.D. 01/21/2020 7:21 AM
[2020-01-21] MEDS: DEXTROSE 50% 50 ML SYRINGE IV PRN (07:29)
[2020-01-21 07:36] LABS: Basophils # (auto) 0.01 K/uL (0-0.2); Basophils % (auto) 0.2 %; Eosinophils # (auto) 0.05 K/uL (0-0.5); Eosinophils % (auto) 0.9 %; Hematocrit (blood only) 36.6 % (42-52); Hemoglobin 11.6 g/dL (14.0-18.0); Immature Granulocytes # (auto) 0.25 K/uL (0.00-0.02); Immature Granulocytes % (auto) 4.5 %; Lymphocytes # (auto) 0.78 K/uL (1.2-3.4); Lymphocytes % (auto) 13.9 %; Mean Corpuscular Hemoglobin 27.4 pg (25-34); Mean Corpuscular Hgb Conc 31.7 g/dL (32-36); Mean Corpuscular Volume 86.5 fL (80-100); Mean Platelet Volume 9.3 fL (7.4-10.4); Monocytes # (auto) 0.38 K/uL (0.11-0.59); Monocytes % (auto) 6.8 %; Neutrophils # (auto) 4.14 K/uL (1.4-6.5); Neutrophils % (auto) 73.7 %; Platelet Count 146 K/uL (130-400); RDW Coefficient of Variation 17.9 % (11.5-14.5); RDW Standard Deviation 56.4 fL (36.4-46.3); Red Blood Count 4.23 M/uL (4.7-6.1); White Blood Count 5.61 K/uL (4.8-10.8)
[2020-01-21 07:44] LABS: INR 1.8 (0.9-1.1); Prothrombin Time 18.6 Seconds (9.0-12.0)
[2020-01-21 08:01] LABS: Estimated Average Glucose 186 mg/dl; Hemoglobin A1C 8.1 % (4.5-5.6)
--- NOTE | 2020-01-21 08:21 | Magnetic Resonance Report ---
MR lumbar spine wo con CLINICAL HISTORY: Incontinence. Weakness. History of prostate carcinoma. Evaluate for cord compressio n. TECHNIQUE: Sagittal and axial T1, T2 and STIR images were obtained. COMPARISON STUDY: No previous studies for comparison. OBSERVATIONS: The vertebral bodies and posterior elements appear intact. There is no abnormal bony signal present t o suggest a marrow replacement process. L1-2: No disc protrusions or extrusions. No evidence of spinal canal or neural foraminal compromise. L2-3: No disc protrusions or extrusions. No evidence of spinal canal or neural foraminal compromise. L3-4: There is a small central disc protrusion. There is facet joint arthropathy. There is no signifi cant spinal stenosis. There is mild right-sided foraminal narrowing, and moderate left-sided foramina l narrowing L4-5: There is a circumferential disc bulge. There is facet joint arthropathy. There is no significan t spinal stenosis. There is mild to moderate right-sided foraminal narrowing L5-S1: There is a mild circumferential disc bulge. There is facet joint arthropathy. There is no sign ificant spinal stenosis. There is moderate bilateral foraminal narrowing. The conus medullaris and cauda equina appear normal. There are postsurgical changes of posterior laminectomies the L3 and L4 levels. IMPRESSION: 1. Postsurgical changes 2. Multilevel spondylytic changes 3. No evidence of significant spinal stenosis 4. Small central disc protrusion at the L3-4 level 5. Multilevel foraminal narrowing as described above. ACT 112: Negative or not required by law. Electronically signed by: Rodriguez Veloz M.D. 01/21/2020 8:20 AM
[2020-01-21 08:26] LABS: BUN Creatinine Ratio 23.6 (10-20); Calcium 8.5 mg/dl (8.5-10.1); Creatinine Clr Calc Pharmacy 55.4 ml/min; Est GFR (African American) 50.8; Est GFR (Non-African American) 43.8; Potassium 3.6 mmol/L (3.5-5.1)
[2020-01-21] MEDS ORDERED: TOPIRAMATE 25 MG TAB PO SCH (09:00)
[2020-01-21] MEDS ORDERED: predniSONE 10 MG TABLET PO SCH (09:00)
[2020-01-21 09:39] LABS: Appearance Urine Clear (Clear); Bilirubin Urine Negative (Negative); Blood Urine Negative (Negative); Color Urine Yellow; Glucose Urine UA Negative (Negative); Ketones Urine Negative (Negative); Leukocyte Esterase Urine Negative (Negative); Nitrite Urine Negative (Negative); Protein Urine Negative (Negative); Specific Gravity Urine 1.025 (1.000-1.030); Urobilinogen Urine Negative (Negative)
--- NOTE | 2020-01-21 09:45 | XRay Report ---
XR chest 2V PA/lateral CLINICAL HISTORY: h/o ILD; falls; eval pneumonia COMPARISON STUDY: No previous studies for comparison. FINDINGS: There are median sternotomy wires and a prosthetic aortic valve. A catheter projects of the left lower hemithorax. There is moderate enlargement of the cardiac silhouette without evidence for pulmonary edema. There are postoperative finding within the left lower lung. No pneumothorax is noted . There are trace bilateral pleural effusions. There is mild right lower lung airspace opacity. IMPRESSION: 1. Mild right lower lung opacity which favors pneumonia. Radiographic follow up to ensure resolution is recommended. 2. Moderate enlargement of the cardiac silhouette. No evidence for pulmonary edema. 3. Catheter which projects over the left lower hemithorax. This could reflect a pericardial or pleura l catheter. 4. Trace bilateral pleural effusions. ACT 112: Negative or not required by law. Electronically signed by: John Paul Drummond M.D. 01/21/2020 9:43 AM
[2020-01-21] MEDS: cefTRIAXone SODIUM 2,000 MG in DEXTROSE 5% 50 ML IV SCH (10:03)
[2020-01-21] MEDS: ACETAMINOPHEN 325 MG TAB PO PRN ×2 (10:26→21:21)
[2020-01-21] MEDS: PSYLLIUM 58.6% POWDER PACKET PO SCH (10:31)
[2020-01-21] MEDS: PANTOprazole 40 MG TAB PO SCH (10:31)
[2020-01-21] MEDS: AZITHROMYCIN 250 MG TAB PO SCH (10:31)
[2020-01-21] MEDS: GABAPENTIN 300 MG CAP PO SCH ×2 (10:31→21:16)
[2020-01-21] MEDS: FINASTERIDE 5 MG TAB PO SCH (10:31)
[2020-01-21] MEDS: FLUTICASONE/VILANTEROL 100/25MCG 14 PUFFS/INHALER INH SCH (10:31)
[2020-01-21] MEDS: ISOSORBIDE MONO EXTENDED REL 30 MG TABCR PO SCH (10:31)
[2020-01-21] MEDS: TORSEMIDE 20 MG TAB PO SCH (10:31)
--- NOTE | 2020-01-21 10:43 | Neurology Consultation ---
Date of Consultation January 21, 2020 Assessment & Plan (1) Stroke-like symptoms: (2) Seizure-like activity: (3) Diabetic peripheral neuropathy: (4) Polymyositis: Patient's initial stated complaint of blurry vision and dysarthria would seem most consistent with stroke or TIA. His MRI was negative for acute or subacute infarct, however, and a TIA would seem more likely. He does have very mild proximal weakness for the right arm and leg, although this issue could be chronic and potentially related to his history of polymyositis. Of additional concern, are this patient's episodic falls that are preceded by a blank stare/lapse in awareness, potentially consistent with seizures. His EEG completed this morning was unremarkable, however. Nonetheless, I am unable to completely exclude partial complex seizures with secondary generalization. Alternatively, a significant cardiac arrhythmia and associated cerebral hypoperfusion may not be completely excluded either. 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 This patient also has a significant proprioceptive deficit at the feet and ankles that is likely consistent with peripheral neuropathy, probably diabetic peripheral neuropathy. In terms of secondary stroke risk reduction, patient should continue with warfarin (which he is prescribed in light of his history of aortic valve replacement) and atorvastatin. His diabetes mellitus will need ongoing management as well, he is on insulin. Would also consider obtaining a 30-day cardiac event monitor to exclude a significant cardiac arrhythmia or atrial fibrillation that may also factor into his stroke risk as well as his recurrent lapses in awareness that seem to precede his falls. An implantable loop recorder may also be an option for him. Furthermore, although this morning's EEG was unremarkable, he has been experiencing recurrent lapses in awareness with associated generalized shaking and falls. These episodes could be consistent with partial complex seizures with secondary generalization. (Although convulsive syncope not excluded.) It looks like he is prescribed a low-dose of topiramate. I would recommend increasing the dosage of this anticonvulsant to 50 mg twice daily for 1 week, followed by 75 mg twice daily thereafter. He will need additional outpatient follow-up with neurology as well, either back home or locally in the outpatient setting. If additional cardiac evaluation is unremarkable, I may consider referring him for prolonged EEG monitoring as well. If he continues to have lapses in spite of uptitrating his topiramate dosage, I may consider a trial of Keppra. Patient may continue with gabapentin for symptomatic management of his diabetic peripheral neuropathy. Patient follows with rheumatology for polymyositis and rheumatoid arthritis and is on chronic corticosteroid therapy and also relays a history of relatively recent Rituxan infusions. History of Present Illness Reason for Consultation: Seizure? Requesting Physician: Ana Dong DO Attending Physician: Toni Kelly History of Present Illness The patient is a 74-year-old male who presented to the emergency department with a chief complaint of slurred speech and blurry vision affecting the right eye. The symptoms were potentially worrisome for stroke although he was not considered a TPA candidate given his elevated INR, on warfarin therapy. He does not have any residual vision loss or dysarthria at this time. Patient's past medical history is further complicated by recurrent falls that are preceded by a blank stare and shaking of the limbs, followed by a period of confusion. These episodes have been observed by this patient's family, he is generally amnestic for these events. He was hospitalized at [facility] for 11 days earlier this month for this issue and has subsequently been living with his son who lives locally. The patient indicates that he has been experiencing these episodes for the past few months. His past medical history is further complicated by polymyositis, rheumatoid arthritis, interstitial lung disease, history of aortic valve replacement, and diabetes mellitus. He indicates that he has been treated with Rituxan recently and had some allergic reaction or intolerance to this therapy. He is undergone extensive neuro imaging thus far including CT of the head, MRI of the brain, MRA of the head and neck, and MRI of the lumbar spine. These tests are generally unrevealing in terms of his presentation and are described in further detail below. He had an EEG completed this morning as well that was negative for epileptiform abnormalities. Allergies Allergy/AdvReac Type Severity Reaction Status Date / Time Iodinated Contrast Media Allergy Severe Anaphylaxis Verified 01/20/20 21:36 shellfish derived Allergy Severe Anaphylaxis Verified 01/20/20 21:36 Tetanus Vaccines and Toxoid Allergy Unknown Unknown Verified 01/20/20 21:36 Home Medications Home Medications Medication Instructions Recorded Confirmed Type albuterol sulfate [Ventolin HFA] 2 puff INHALATION Q4H PRN 01/20/20 01/20/20 History allopurinol 200 mg PO HS 01/20/20 01/20/20 History atorvastatin 80 mg PO HS 01/20/20 01/20/20 History azithromycin 250 mg PO 3XWK 01/20/20 01/20/20 History [id number]-[id number]-[id number] 1 tab PO DAILY 01/20/20 01/20/20 History cholecalciferol (vitamin D3) 2,000 unit PO DAILY 01/20/20 01/20/20 History [Vitamin D3] dulaglutide [Trulicity] 1.5 mg SUBCUT WK 01/20/20 01/20/20 History finasteride 5 mg PO QAM 01/20/20 01/20/20 History fluticasone propion-salmeterol 1 inh INHALATION Q12H 01/20/20 01/20/20 History [Wixela Inhub] gabapentin 300 mg PO BID 01/20/20 01/20/20 History insulin aspart U-100 See Rx Instructions .ROUTE .COMPLEX 01/20/20 01/20/20 History insulin degludec [Tresiba 100 unit SUBCUT QPM 01/20/20 01/20/20 History FlexTouch U-200] ipratropium-albuterol 3 ml INHALATION QID PRN 01/20/20 01/20/20 History isosorbide mononitrate 30 mg PO QAM 01/20/20 01/20/20 History nitroglycerin 0.4 mg SUBLINGUAL DIRECTED PRN 01/20/20 01/20/20 History omeprazole 40 mg PO QAM 01/20/20 01/20/20 History potassium chloride 10 meq PO BIDM 01/20/20 01/20/20 History prednisone 10 mg PO BID 01/20/20 01/20/20 History psyllium [Metamucil] 1 packet PO QAM 01/20/20 01/20/20 History topiramate [Topamax] 25 mg PO BID 01/20/20 01/20/20 History torsemide 20 mg PO DAILY 01/20/20 01/20/20 History trazodone 50 mg PO HS PRN 01/20/20 01/20/20 History warfarin 5 mg PO DAILY 01/21/20 01/21/20 History Patient History Medical History CAD (coronary artery disease) Diabetes HLD (hyperlipidemia) Interstitial lung disease Polymyositis Prostate cancer s/p XRT Thoracic ascending aortic aneurysm s/p repair Surgical History H/O hernia repair History of aortic valve replacement mechanical History of cholecystectomy History of fusion of cervical spine History of gastric bypass lap band History of heart artery stent History of lung biopsy 2019 History of partial nephrectomy Family History Other Coronary heart disease Rheumatoid arthritis Stroke Social History Smoking Status: Never smoker Hx Alcohol Use: No Hx Substance Use: No Preferred Language: Armenian Communication Ability: Effective Hearing Ability: Hard of Hearing Head Irrigator Required: No Beliefs That Will Affect Care: None marital status: / Current Living Situation: Alone and Family Current Living Situation Comment: son Feels Safe at Home: Yes Assistive Devices: Hearing Aid - Left, Hearing Aid - Right, Oxygen - at Night and Walker Review of Systems Constitutional: no fever and no chills Eyes: as per Subjective / HPI Ear, Nose, Mouth, Throat: no ear pain and no hearing loss Respiratory: + dyspnea Cardiovascular: no chest pain and no palpitations Gastrointestinal: no nausea and no vomiting Genitourinary: no dysuria Musculoskeletal: + back pain Integumentary: no rash and no lesions Neurologic: as per Subjective / HPI, + gait abnormality, + localized weakness, + seizure-like activity and + headache(s); no confusion and no memory loss Psychiatric: no depression and no anxiety Hematologic / Lymphatic: no easy bleeding and no easy bruising Exam (Neuro) Constitutional: well developed and well nourished; no acute distress Eyes: normal visual [place] by confrontation, PERRL, normal accommodation and EOM intact bilaterally; no fundoscopic abnormality, no nystagmus and no papilledema Cardiovascular: Vessels: normal carotid upstroke; no carotid bruit Neurologic: Oriented to:: Person, Place and Time Memory: Short Term Intact and Remote Intact Attention: Span Intact and Concentration Intact Language: Naming Objects and Repeating Phrases Speech Fluency: negative Dysarthria Speech Aphasia: negative Aphasia Fund of Knowledge: Current Events, Past History and Vocabulary Cranial Nerves: Normal II (Visual [place] full to confrontation, visual acuity normal), III, IV, (Pupils equal round reactive to light and accommodation, eye movements normal), V (Facial sensation intact), VII (There is no facial droop or weakness), VIII (Hearing intact), IX, X (Palate elevates to midline), XI (Shoulder shrug intact) and XII (Tongue protrudes to midline) Motor Strength: negative Normal Lower Extremities (Very mild right lower extremity weakness noted), Normal Upper Extremities (Very mild right upper extremity weakness noted) and Pronator Drift Motor Tone: Normal Lower Extremities and Normal Upper Extremities Muscle Bulk/Involuntary Movements: No Involuntary Movements; negative Muscle Atrophy Sensation: negative Light Touch Intact, Pain/Temperature Intact, Vibration Intact and Proprioception Intact (Proprioceptive deficit noted at the feet and ankles bilaterally.) Coordination: Finger-Nose Abnormal Laterality: Right and Heel- Patel Abnormal Laterality: Right; negative Dysdiadochokinesia Deep Tendon Reflexes: Rt Triceps: 1+, Lt Triceps: 1+, Rt Biceps: 1+, Lt Biceps: 1+, Rt Brachioradialis: 1+, Lt Brachioradialis: 1+, Rt Patellar: 1+, Lt Patellar: 1+, Rt Ankle: 0 and Lt Ankle: 0 Special Tests: negative Babinski Present Details: Gait could not be safely tested in the context of patient's current medical/neurological condition. Results & Data ([facility]) Vital Signs (Past 12 Hours) Vital Signs Temp Pulse Pulse Pulse Resp BP Pulse Ox 01/21/20 07:34 36.5 C 55 L 16 114/72 94 01/21/20 03:49 66 01/21/20 01:58 36.5 C 74 18 116/65 94 Laboratory Results WBC 5.61, hemoglobin 11.6, hematocrit 36.6, platelet count 146, ESR 17, sodium 144, potassium 3.6, BUN 36, creatinine 1.54, glucose 91, hemoglobin A1c 8.1, calcium 8.5, AST 106, ALT 190, troponin less than 0.015, triglycerides 115, cholesterol 138, LDL 58, VLDL 23, HDL [address] of the head negative for hemorrhage or acute process. There is evidence of mild chronic microvascular ischemic change. MRI of the brain negative for acute or subacute stroke. There is evidence of chronic age-related microvascular ischemic change. No abnormal postcontrast enhancement. There is a chronic right cerebellar lacunar infarct. MRA of the neck negative for stenosis or dissection. There is atherosclerotic plaque within the proximal bilateral internal carotid arteries, right greater than left, no significant stenosis. 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 MRA of the head unremarkable. MRI of the lumbar spine reveals postsurgical changes consistent with posterior laminectomies at L3 and L4. There is multilevel spondylitic change. There is a small central disc protrusion at L3-4. I reviewed the images as well as the radiologist interpretation of these tests. Electrocardiogram reveals a sinus rhythm with PACs with aberrant conduction, 72 bpm. Coding Level of Care Code 88813 Initial In Care Lvl 3 Diagnoses Stroke-like symptoms R29.90 Seizure-like activity R56.9 Diabetic peripheral neuropathy E11.42 Polymyositis M33.20
--- NOTE | 2020-01-21 10:46 | Electroencephalogram ---
EEG Procedure Note Date of Service January 21, 2020 Start / End Times Start Time: 5:54 AM End Time: 6:14 AM Referring Physician Ana Dong DO History Lapses in awareness, falls, seizure-like activity Home Medication List Home Medications Medication Instructions Recorded Confirmed Type albuterol sulfate [Ventolin HFA] 2 puff INHALATION Q4H PRN 01/20/20 01/20/20 History allopurinol 200 mg PO HS 01/20/20 01/20/20 History atorvastatin 80 mg PO HS 01/20/20 01/20/20 History azithromycin 250 mg PO 3XWK 01/20/20 01/20/20 History [id number] 1 tab PO DAILY 01/20/20 01/20/20 History cholecalciferol (vitamin D3) 2,000 unit PO DAILY 01/20/20 01/20/20 History [Vitamin D3] dulaglutide [Trulicity] 1.5 mg SUBCUT WK 01/20/20 01/20/20 History finasteride 5 mg PO QAM 01/20/20 01/20/20 History fluticasone propion-salmeterol 1 inh INHALATION Q12H 01/20/20 01/20/20 History [Wixela Inhub] gabapentin 300 mg PO BID 01/20/20 01/20/20 History insulin aspart U-100 See Rx Instructions .ROUTE .COMPLEX 01/20/20 01/20/20 History insulin degludec [Tresiba 100 unit SUBCUT QPM 01/20/20 01/20/20 History FlexTouch U-200] ipratropium-albuterol 3 ml INHALATION QID PRN 01/20/20 01/20/20 History isosorbide mononitrate 30 mg PO QAM 01/20/20 01/20/20 History nitroglycerin 0.4 mg SUBLINGUAL DIRECTED PRN 01/20/20 01/20/20 History omeprazole 40 mg PO QAM 01/20/20 01/20/20 History potassium chloride 10 meq PO BIDM 01/20/20 01/20/20 History prednisone 10 mg PO BID 01/20/20 01/20/20 History psyllium [Metamucil] 1 packet PO QAM 01/20/20 01/20/20 History topiramate [Topamax] 25 mg PO BID 01/20/20 01/20/20 History torsemide 20 mg PO DAILY 01/20/20 01/20/20 History trazodone 50 mg PO HS PRN 01/20/20 01/20/20 History warfarin 5 mg PO DAILY 01/21/20 01/21/20 History Inpatient Medication List Acetaminophen (Acetaminophen 325 Mg Tab) 650 mg PO Q4H PRN PRN Reason: pain/fever Stop: 02/20/20 01:48 Last Admin: 01/21/20 10:26 Dose: 650 mg Documented by: [id number] Azithromycin (Azithromycin 250 Mg Tab) 250 mg PO MoWeFr KIRSTEN Stop: 02/20/20 08:59 Last Admin: 01/21/20 10:31 Dose: 250 mg Documented by: [id number] Dextrose (Dextrose 50% 50 Ml Syringe) 25 - 50 ml IV UD PRN; Protocol PRN Reason: Hypoglycemia Protocol Stop: 02/20/20 01:48 Last Admin: 01/21/20 07:29 Dose: 25 ml Documented by: [id number] Finasteride (Finasteride 5 Mg Tab) 5 mg PO QAM KIRSTEN Stop: 02/20/20 08:59 Last Admin: 01/21/20 10:31 Dose: 5 mg Documented by: [id number] Fluticasone/Vilanterol (Fluticasone/Vilanterol 100/25mcg 14 Puffs/Inhaler) 1 puffs INH DAILY KIRSTEN Stop: 02/20/20 08:59 Last Admin: 01/21/20 10:31 Dose: 1 puffs Documented by: [id number] Gabapentin (Gabapentin 300 Mg Cap) 300 mg PO BID KIRSTEN Stop: 02/20/20 08:59 Last Admin: 01/21/20 10:31 Dose: 300 mg Documented by: [id number] Dextrose/Sodium Chloride (D5w And 1/2nss) 1,000 mls @ 75 mls/hr IV .[id number] KIRSTEN Stop: 01/21/20 16:04 Last Admin: 01/21/20 03:00 Dose: 75 mls/hr Documented by: [id number] Ceftriaxone Sodium 2,000 mg/ (Dextrose) 70 mls @ 100 mls/hr IV Q24H KIRSTEN; Protocol Stop: 01/26/20 08:59 Last Admin: 01/21/20 10:03 Dose: 100 mls/hr Documented by: [id number] Insulin Aspart (Insulin Aspart 100 Units/Ml 3 Ml Pen) 0 units SC ACHS KIRSTEN Stop: 02/20/20 02:59 Last Admin: 01/21/20 09:34 Dose: Not Given Documented by: [id number] Cosigned by: [id number] Admin: 01/21/20 02:44 Dose: Not Given Documented by: [id number] Cosigned by: [id number] Isosorbide Mononitrate (Isosorbide [place] Extended Rel 30 Mg Tabcr) 30 mg PO QAM KIRSTEN Stop: 02/20/20 08:59 Last Admin: 01/21/20 10:31 Dose: 30 mg Documented by: [id number] Pantoprazole Sodium (Pantoprazole 40 Mg Tab) [facility] Stop: 02/20/20 08:59 Last Admin: 01/21/20 10:31 Dose: 40 mg Documented by: [id number] Prednisone (Prednisone 10 Mg Tablet) 10 mg PO BID [facility] Stop: 02/20/20 08:59 Last Admin: 01/21/20 10:31 Dose: 10 mg Documented by: [id number] Psyllium Hydrophilic Mucilloid (Psyllium 58.6% Powder Packet) 1 pkt PO QAM [facility] Stop: 02/20/20 08:59 Last Admin: 01/21/20 10:31 Dose: 1 pkt Documented by: [id number] Topiramate (Topiramate 25 Mg Tab) 25 mg PO BID [facility] Stop: 02/20/20 08:59 Last Admin: 01/21/20 10:31 Dose: 25 mg Documented by: [id number] Torsemide (Torsemide 20 Mg Tab) 20 mg PO DAILY [facility] Stop: 02/20/20 08:59 Last Admin: 01/21/20 10:31 Dose: 20 mg Documented by: [id number] Discontinued Medications Gadobutrol (Gadobutrol 65ml Vial) 11.5 ml IV ONCE ONE Stop: 01/21/20 02:16 Last Admin: 01/21/20 01:19 Dose: 11.5 ml Documented by: [id number] Acetaminophen (Ofirmev) 1,000 mg in 100 mls @ 400 mls/hr IV NOW STA Stop: 01/20/20 22:53 Last Infusion: 01/20/20 23:11 Dose: 0 mls/hr Documented by: [id number] Admin: 01/20/20 22:56 Dose: 400 mls/hr Documented by: [id number] Ondansetron HCl (Ondansetron Inj 2 Mg/Ml 2 Ml Vial) 4 mg IV NOW STA Stop: 01/20/20 20:25 Last Admin: 01/20/20 20:27 Dose: 4 mg Documented by: [id number] Description This is a 21 electrode EEG with a single channel dedicated to limited EKG. The electrodes were placed in accordance with the International 10-20 system. There is a posterior dominant rhythm of 10 Hz which is symmetrically distributed and attenuates with eye opening. There is a normal anterior to posterior organization. Photic stimulation is unremarkable. Hyperventilation is not performed. There is a symmetric frontal beta rhythm. There is no focal or lateralized slowing. There is admixed generalized theta slowing seen in the latter part of the study with a few vertex waves. No epileptiform abnormalities appreciated. Interpretation This is a normal-appearing awake/sleepy EEG. A normal EEG does not completely exclude a diagnosis of epilepsy. Further clinical correlation may be needed. [facility] EEG Procedure Codes Indication for Procedure (1) Seizure-like activity: Neurology Neurology: 81111 EEG include record awake & sleepy
--- NOTE | 2020-01-21 11:32 | Hospitalist Progress Note ---
Date of Service January 21, 2020 Assessment & Plan (1) Stroke-like symptoms: Appreciate neurology consultation. MRI without evidence of stroke. Unable to ascertain if these spells are TIAs vs complex partial seizures. Dr Sheikh advising to continue with coumadin for secondary TIA prevention and to increase topamax from 25mg BID to 50mg BID in the event the spells are seizures. If spells persist may need continuous EEG monitoring, addition of keppra, etc. Keep on telemetry. Seizure precautions. Will obtain echo to ensure no source of embolus, check his [facility] aortic valve, etc. 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 CPK wnl. CRP 0. Sent aldolase - pending. TSH wnl. B12 wnl. Lyme negative. Mild proximal muscle weakness on right but left fairly normal. This is odd given the asymmetry. Follows with Dr Shahid Christina in [place] ([phone]). On chronic prednisone 10mg BID. Had opinion from [facility] in August 2019. Rituxan x 2 doses given since that visit. Date of last infusion uncertain. I am not clear if current weakness, spells, etc are due to severe deconditioning in setting of RA/polymyositis/numerous other medical problems vs active polymyositis vs other. Took liberty of increasing prednisone to 20mg BID. I spoke with Dr Buckley from [facility] rheum today - he is hoping to speak with the pt's primary coal inspector in [place] to gain a better understanding of this gentleman's history. (3) Rheumatoid arthritis: Does not appear to have active synovitis on exam today. Cont prednisone. (4) History of aortic valve replacement: Continue coumadin. Daily INR. If INR trends down further consider heparin bridge. Echo to check valve integrity and gradient. (5) Interstitial lung disease: Likely 2nd to RA. Continue Prednisone. Schedule duonebs BID at this request. Continue Fluticasone/Vilanterol. CXR today with ?RLL pneumonia - started rocephin for such. Already taking chronic zithromax for prophylaxis (MAC prevention?). (6) CAD (coronary artery disease): Having 1-2x's a week episodes of chest pain but negative heart cath x 2 early 2019. I don't have those records. Had episode tonight -- repeat EKG unchanged. Nitro SL prn provided. Obtain echo. Obtain records from primary brass reclaimer in [place]. Continue Atorvastatin. Patient is not on ASA, ALMA-inhibitor or BB (states he cannot tolerate Beta- blockers). At minimum would expect he should be on aspirin. (7) Diabetes: Had hypoglycemia this am - severe. Needed dextrose drip - lows now resolved. Fluids stopped. Sugars now high. Resume lantus - start lantus 40 units BID. Cont novolog. a1c 8.1%. (8) Chest pain: See discussion in CAD. Check serial trops. Get old records from [facility]. Order echo. (9) HLD (hyperlipidemia): Statin (10) Gout: Cont allopurinol prophylaxis (11) History of gastric bypass: Noted. Iron studies c/w iron def - consider venofer. Checked B12 level - wnl. (12) Elevated serum creatinine: uncertain baseline Cr. Repeat Cr in am. (13) Chronic headache: migraines per patient -- cont topamax prophylaxis. no headache today. (14) Pneumonia: question of - RLL. rocephin 2gm daily. already on chronic zithromax 3 days/week. (15) DVT prophylaxis: coumadin total time today 80 minutes due to 2 separate visits to bedtime (total 40 minutes over both visits); reviewing old records; speaking with rheumatology; reviewing all data from [facility]; etc. Admission and Anticipated Discharge Date Admission Date: January 20, 2020 Subjective 2 visits to pt's room today. first visit - patient's son was at bedside. patient confirms he has been living in [facility] and was hospitalized at [facility] for 9 days recently (diarrhea, BRBPR, etc). rehab was advised, but rehab was declined by his insurance, and he refused to go to SNF in [facility]. his son was willing to take him in back in [place] and thus he moved temporarily to [place] with his son. the plan was for him to be here for about 1 month. since getting to [place] he has been quite weak. he has had numerous episodes as described in the history by the admitting physician. he denies prodromal dizziness/lightheadedness prior to his spells. his son has checked his blood sugar during a spell and was normal. he doesn't have prolonged "post-ictal" type confusion by history. patient reports chronic dyspnea and cough. no fevers. dx with ILD in the last year and follows with pulmonary in [place]. he has chest pain about twice weekly requiring use of nitro SL. he often has to take 2 tabs to get the chest pain to go away. he reports having had a heart cath in 04/2019 in [facility]? as well as a 2nd cath in May or June of 2019. he states "all the arteries were open." no stents placed, but he has had stents in the past. he was told that his chest pain is from his "pericardium being inflamed from his polymyositis" and he further states that cardiology is aware of the frequency of his nitro use. about 1 hour after my first visit with the patient he developed a chest pain episode and asked for SL nitro AND a duoneb treatment. I went back to the bedside and he was resting comfortably. He looked similar to previous. We talked about his chest pain. Records from [place] [facility] mention "typical and atypical chest pain" and that his troponins were negative during his prior hospital stay. he states he was seen by the [facility] in early August for his polymyositis. in conjunction with his coal inspector in [place] they started rituximab this spring/summer and he has had 2 doses of such. takes chronic prednisone - been on 10mg BID - with occasional bursts to 20mg BID. states he has been on prednisone for 3 months. reports sugars are "all over the place" of late with lows and highs. finally he reports that his INR goal is 2-3 for h/o mechanical aortic valve. has had the valve for 15 years. Review of Systems Constitutional: + fatigue, + weakness and + weight gain; no fever, no chills and no anorexia Ear, Nose, Mouth, Throat: no dysphagia Respiratory: + cough, + dyspnea and + dyspnea on exertion Cardiovascular: as per Subjective / HPI, + chest pain and + edema Gastrointestinal: + diarrhea/loose stools; no abdominal pain, no nausea and no vomiting Musculoskeletal: + myalgia and + muscle weakness Integumentary: no rash Neurologic: + tingling (hands/feet only) Physical Exam Constitutional: + obese; no acute distress and no altered mental status cushingnoid appearance ENMT: Mouth: + oral mucosal abnormality (probable thrush plaques tongue ) Respiratory: no respiratory distress Auscultation: + diminished lung sounds (bases) and + crackles (fine, bases); no wheezes Cardiovascular: Rate/Rhythm: regular rate and regular rhythm Heart Sounds: normal S1 and normal S2; no murmur Vessels: posterior tibial pulses present and dorsalis pedis pulses present; no JVD Extremities: no edema Gastrointestinal (Abdomen): normal bowel sounds, soft, nontender, no he patosplenomegaly Musculoskeletal: no synovitis of any small or large joint (upper/lower extremities) Skin: no rashes, warm and dry Neurologic: mild proximal muscle weakness right shoulder and right hip regions. none on left. DTRs symmetric, slightly brisk, 2-3+ b/l Psychiatric: Orientation: alert and oriented x 3 Results & Data Results & Data ([facility]) Vital Signs (Past 12 Hours) Vital Signs Temp Pulse Pulse Pulse Resp BP Pulse Ox 01/21/20 07:34 36.5 C 55 L 16 114/72 94 01/21/20 03:49 66 01/21/20 01:58 36.5 C 74 18 116/65 94 Laboratory Results INR 1.8 Cr 1.5 troponin negative (from 01/19) sed rate 17 Diagnostic Findings MRI brain neg for old or new stroke EEG - neg for seizure focus PG Care Time/CCT Total # of Minutes Spent Total Time Spent with Patient: Total time spent is greater than 50% in coordination of care (as documented) at patient's floor/unit and/or counseling patient: Prolonged Care Time Prolonged Care Time: Yes Total Prolonged Care Time: 80 Coding Level of Care Code 15499 Subseq Hosp Care Lvl 3 (25 - SIGNIFICANT, SEPARATELY IDENTIFIABLE ) Diagnoses Stroke-like symptoms R29.90 Polymyositis M33.20 Rheumatoid arthritis M06.9 Rheumatoid arthritis location: unspecified site Rheumatoid factor presence: unspecified presence History of aortic valve replacement Z95.2 Interstitial lung disease J84.9 CAD (coronary artery disease) I25.10 Coronary Disease-Associated Artery/Lesion type: [place] artery [place] vs. 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 insulin use: with terminal gauger supervisor use Diabetes mellitus complication status: with neurologic complications Diabetes mellitus complication detail: with polyneuropathy Chest pain R07.9 Chest pain type: unspecified HLD (hyperlipidemia) E78.2 Hyperlipidemia type: mixed hyperlipidemia Gout M10.9 Gout site: unspecified site Gout etiology: unspecified cause Chronicity: unspecified History of gastric bypass Z98.84 Elevated serum creatinine R79.89 Chronic headache R51 Headache type: unspecified Intractability: not intractable Pneumonia J18.9 Pneumonia type: due to unspecified organism Laterality: right Lung location: unspecified part of lung DVT prophylaxis Z29.9 Additional Codes Prolonged Care Time - Prolonged Care Time: Yes ([id number]) Time Spent (min) 80 (1) CAD (coronary artery disease) Coronary Disease-Associated Artery/Lesion type: [place] artery [place] vs. transplanted heart: [place] heart Associated angina: without angina Qualified Code(s): I25.10 - Atherosclerotic heart disease of [place] coronary artery without angina pectoris (2) Rheumatoid arthritis Rheumatoid arthritis location: unspecified site Rheumatoid factor presence: unspecified presence Qualified Code(s): M06.9 - Rheumatoid arthritis, unspecified (3) Diabetes Diabetes mellitus type: type 2 Diabetes mellitus correction insulin use: with correction use Diabetes mellitus complication status: with neurologic complications Diabetes mellitus complication detail: with polyneuropathy Qualified Code(s): E11.42 - Type 2 diabetes mellitus with diabetic polyneuropathy; Z79.4 - senior living (current) use of insulin (4) Chest pain Chest pain type: unspecified Qualified Code(s): R07.9 - Chest pain, unspecified (5) HLD (hyperlipidemia) Hyperlipidemia type: mixed hyperlipidemia Qualified Code(s): E78.2 - Mixed hyperlipidemia (6) Gout Gout site: unspecified site Gout etiology: unspecified cause Chronicity: unspecified Qualified Code(s): M10.9 - Gout, unspecified (7) Chronic headache Headache type: unspecified Intractability: not intractable Qualified C ode(s): R51 - Headache (8) Pneumonia Pneumonia type: due to unspecified organism Laterality: right Lung location: unspecified part of lung Qualified Code(s): J18.9 - Pneumonia, unspecified organism
[2020-01-21] MEDS ORDERED: predniSONE 20 MG TAB PO STA (15:45)
[2020-01-21] MEDS: WARFARIN SOD 5 MG TAB PO SCH (16:39)
[2020-01-21 16:46] LABS: C Reactive Protein < 0.29 mg/dl (0-0.29); Creatine Kinase 68 U/L (39-308); Ferritin 45.6 ng/ml (8-388); Iron 51 mcg/dl (35-175); Thyroid Stimulating Hormone 0.623 uIu/ml (0.300-4.500); Transferrin 248 mg/dl (200-360); Transferrin Percent Saturation 15 % (20-50)
[2020-01-21 16:50] LABS: Folate (Folic Acid) 11.38 ng/ml (>5.38)
[2020-01-21] MEDS ORDERED: NITROGLYCERIN SL 0.4 MG/TAB TAB SL STA (18:46)
[2020-01-21] MEDS ORDERED: NITROGLYCERIN SL 0.4 MG/TAB TAB SL PRN (18:46)
[2020-01-21] MEDS: ALBUT/IPRATROP 3MG/0.5MG NEB 3 ML VIAL INH SCH (19:15)
[2020-01-21 19:27] LABS: Lyme Ab IgG w/WB Rflx Negative (Negative); Lyme Ab IgM w/WB Rflx Negative (Negative)
[2020-01-21] MEDS ORDERED: INSULIN GLARGINE 100 UNIT/ML VIAL SC SCH (21:00)
[2020-01-21] MEDS: NYSTATIN SUSP 500,000 U/5 ML UDC PO SCH (21:15)
[2020-01-21] MEDS: predniSONE 20 MG TAB PO SCH (21:15)
[2020-01-21] MEDS: ATORVASTATIN 40 MG TAB PO SCH (21:16)
[2020-01-21] MEDS: allopurinoL 100 MG TAB PO SCH (21:17)
[2020-01-21] MEDS: TOPIRAMATE 50 MG TAB PO SCH (21:17)
[2020-01-21] MEDS: INSULIN GLARGINE 100 UNIT/ML VIAL SC SCH (21:19)
[2020-01-22] MEDS: ALBUT/IPRATROP 3MG/0.5MG NEB 3 ML VIAL INH SCH ×2 (07:02→18:13)
[2020-01-22 07:12] LABS: Basophils # (auto) 0.01 K/uL (0-0.2); Basophils % (auto) 0.1 %; Hematocrit (blood only) 35.9 % (42-52); Hemoglobin 11.6 g/dL (14.0-18.0); Immature Granulocytes # (auto) 0.11 K/uL (0.00-0.02); Immature Granulocytes % (auto) 1.4 %; Lymphocytes # (auto) 0.52 K/uL (1.2-3.4); Lymphocytes % (auto) 6.8 %; Mean Corpuscular Hemoglobin 27.6 pg (25-34); Mean Corpuscular Hgb Conc 32.3 g/dL (32-36); Mean Corpuscular Volume 85.3 fL (80-100); Mean Platelet Volume 9.8 fL (7.4-10.4); Monocytes # (auto) 0.06 K/uL (0.11-0.59); Monocytes % (auto) 0.8 %; Neutrophils # (auto) 6.92 K/uL (1.4-6.5); Neutrophils % (auto) 90.9 %; Platelet Count 160 K/uL (130-400); RDW Coefficient of Variation 17.8 % (11.5-14.5); RDW Standard Deviation 55.8 fL (36.4-46.3); Red Blood Count 4.21 M/uL (4.7-6.1); White Blood Count 7.62 K/uL (4.8-10.8)
[2020-01-22 07:21] LABS: INR 1.5 (0.9-1.1); Prothrombin Time 15.5 Seconds (9.0-12.0)
[2020-01-22] MEDS: TOPIRAMATE 50 MG TAB PO SCH ×2 (07:41→21:09)
[2020-01-22] MEDS: GABAPENTIN 300 MG CAP PO SCH ×2 (07:41→21:08)
[2020-01-22] MEDS: TORSEMIDE 20 MG TAB PO SCH (07:41)
[2020-01-22] MEDS: PANTOprazole 40 MG TAB PO SCH (07:41)
[2020-01-22] MEDS: FLUTICASONE/VILANTEROL 100/25MCG 14 PUFFS/INHALER INH SCH (07:42)
[2020-01-22] MEDS: ISOSORBIDE MONO EXTENDED REL 30 MG TABCR PO SCH (07:42)
[2020-01-22] MEDS: NYSTATIN SUSP 500,000 U/5 ML UDC PO SCH ×4 (07:42→21:07)
[2020-01-22] MEDS: predniSONE 20 MG TAB PO SCH ×2 (07:42→21:08)
[2020-01-22] MEDS: PSYLLIUM 58.6% POWDER PACKET PO SCH (07:42)
[2020-01-22] MEDS: FINASTERIDE 5 MG TAB PO SCH (07:43)
[2020-01-22 07:58] LABS: Alanine Aminotransferase 151 U/L (12-78); Albumin Level 2.8 gm/dl (3.4-5.0); Alkaline Phosphatase 68 U/L (45-117); Aspartate Aminotransferase 52 U/L (15-37); BUN Creatinine Ratio 21.6 (10-20); Bilirubin Direct 0.1 mg/dl (0-0.2); Bilirubin,Total 0.4 mg/dl (0.2-1); Blood Urea Nitrogen 32 mg/dl (7-18); Calcium 8.5 mg/dl (8.5-10.1); Carbon Dioxide 26 mmol/L (21-32); Chloride 111 mmol/L (98-107); Est GFR (African American) 53.7; Est GFR (Non-African American) 46.3; Glucose 140 mg/dl (70-99); Potassium 4.3 mmol/L (3.5-5.1); Sodium 142 mmol/L (136-145); Total Protein 5.9 gm/dl (6.4-8.2); Troponin I < 0.015 ng/ml (0-0.045)
[2020-01-22] MEDS: INSULIN GLARGINE 100 UNIT/ML VIAL SC SCH ×2 (08:44→21:01)
[2020-01-22] MEDS: INSULIN ASPART 100 UNITS/ML 3 ML PEN SC SCH ×4 (08:45→20:59)
[2020-01-22] MEDS: cefTRIAXone SODIUM 2,000 MG in DEXTROSE 5% 50 ML IV SCH (10:19)
[2020-01-22] MEDS: FERROUS SULFATE 325 MG TAB PO SCH ×2 (10:19→21:06)
[2020-01-22] MEDS: ACETAMINOPHEN 325 MG TAB PO PRN ×2 (10:26→21:05)
[2020-01-22] MEDS: levETIRAcetam 500 MG TAB PO SCH ×2 (10:42→21:07)
--- NOTE | 2020-01-22 15:14 | XCELERA ---
[id number]
[2020-01-22] MEDS: WARFARIN SOD 7.5 MG TAB PO SCH (16:41)
[2020-01-22] MEDS ORDERED: WARFARIN SOD 2.5 MG TAB PO ONE (19:15)
--- NOTE | 2020-01-22 20:56 | Hospitalist Progress Note ---
Date of Service January 22, 2020 Assessment & Plan (1) Stroke-like symptoms: Unable to ascertain if these spells are TIAs vs complex partial seizures. Dr Sheikh advising to continue with coumadin for secondary TIA prevention and to increase topamax from 25mg BID to 50mg BID in the event the spells are seizures. MRI brain this admission without old or new stroke. Had a "spell" at 0200, then again this am during his echo. Spoke with Dr Sheikh - to cover for refractory seizures will add keppra 500mg BID to the topamax. Will likely need continuous EEG monitoring as outpatient. Keep on telemetry. Seizure precautions. 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 CPK wnl. CRP 0. Aldolase - pending. TSH wnl. B12 wnl. Lyme negative. Mild proximal muscle weakness on right but left fairly normal. This is odd given the asymmetry. Follows with Dr Shahid Christina in [place] ([phone]). On chronic prednisone 10mg BID. Had opinion from [facility] in August 2019 for polymyositis and his ILD. Rituxan x 2 doses given since that visit. Last dose - 12/24/2019. Took liberty of increasing prednisone to 20mg BID yesterday - patient does not note any improvement in weakness. Dr Buckley from [facility] rheum spoke with pt's primary cook specialty foreign food in [facility] today -- prior CPKs have always been normal. No changes to meds recommended by his primary cook specialty foreign food. Will change prednisone back to 10mg BID. Suspect that patient has severe deconditioning in face of numerous medical problems, multiple medical problems, etc. Cannot rule out a steroid-induced myopathy. (3) Rheumatoid arthritis: Does not appear to have active synovitis on exam. Cont prednisone. (4) History of aortic valve replacement: 2004 - following aortic dissection. Continue coumadin. INR 1.5. Give additional 2.5mg of coumadin today in addition to regular dose of 7.5mg. Repeat INR am. While awaiting INR to rise to >2 start lovenox 40mg daily. Echo 04/2019 with intact valve function. Today's echo - although limited - with presumed intact valve function. (5) Interstitial lung disease: Likely 2nd to RA. Continue Prednisone. Continue duonebs BID. Continue Fluticasone/Vilanterol. CXR 01/20 with ?RLL pneumonia - started rocephin for such. Already taking chronic zithromax for prophylaxis (MAC prevention?). Will repeat his cxr tomorrow; if no RLL infiltrate seen then stop rocephin. (6) Pneumonia: question of - RLL - based on cxr 01/20. rocephin 2gm daily. already on chronic zithromax 3 days/week. repeat cxr tomorrow - if RLL opacity is absent, and in light of no fever/no crp elevation/good appetite/etc - d/c rocephin. (7) CAD (coronary artery disease): Having 1-2x's a week episodes of chest pain but negative heart cath x 2 in 03/2019 and 04/2019. Had chest pain yesterday - resolved with nitro. Despite such had negative troponins yesterday/today. Etiology of chest pain? GI? Pulmonary? Musculoskeletal from sternal arthritis/scar tissue? other? Continue Atorvastatin. Patient is not on ASA, ALMA-inhibitor or BB (states he cannot tolerate Beta- blockers). At minimum would expect he should be on aspirin. Records from [facility] state that he had chest pain while hospitalized earlier this month with negative biomarkers. Imdur added then. Cont imdur. (8) Diabetes: Hyperglycemia 2nd to increase in steroids. Adjust lantus. Adjust novolog. Follow. Should improve with titration downward of prednisone. a1c 8.1%. (9) Chest pain: See discussion in CAD. echo with intact LV wall motion. 04/2019 cath in [place] - patent left main stent. (10) HLD (hyperlipidemia): Statin (11) Gout: Cont allopurinol prophylaxis (12) Elevated serum creatinine: Cr 1.7 at admission now 1.4 repeat am uncertain baseline Cr (13) History of gastric bypass: Noted. Iron studies c/w iron def - consider venofer. Oral Fe in meantime. Checked B12 level - wnl. (14) Chronic headache: migraines per patient -- cont topamax prophylaxis. no headache today. (15) Candidiasis of mouth and esophagus: nystatin 5cc ac/hs (16) Nonsustained ventricular tachycardia: 20-beat run last night. did not correlate with his shaking spells. continue to monitor. (17) PAF (paroxysmal atrial fibrillation): seen incidentally during cardiology office visit in [place] on 05/27/19. continue tele monitoring. no a.fib during the stay thus far. is on chronic coumadin. 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 Presented with fever, chest pain, +troponin with peak to 18. Cath at that time with patent left main stent and nonobstructive CAD in other vessels. Treated with prednisone. Echo today - although limited - with preserved EF. Troponins here negative. (19) DVT prophylaxis: coumadin lovenox 40mg SC daily cont PT/OT needs rehab total time today about 70 minutes including speaking with polysomnographic technician/cardiology following his AM spell; speaking with neurology; speaking with rheumatology; reviewing records from GI, cardiology, etc; adjusting insulins; bedside visit. Admission and Anticipated Discharge Date Admission Date: January 20, 2020 Subjective Multiple events and discussions with various individuals today. First, patient was getting his echo in the cardiovascular unit this am. I received a phone call from the [employer] that during the echo the patient began to complain of feeling shaky in his arms and head. The patient then began to stare and was not speaking. he did not lose his pulse. One of the near-by cardiologists came to the bedside and the pt's eyes were open but he wasn't speaking. Within a few seconds the patient regained consciousness, was talking, and was following commands. Following this event I spoke with Dr Sheikh from neurology. Due to the uncertain etiology of the patient's "spells" and the possibility of seizures he advised starting keppra 500mg BID. Patient to likely need continuous EEG monitoring in the future as outpatient. Spoke with Dr Buckley from [facility] rheumatology today. Dr Buckley spoke with the pt's primary cook specialty foreign food in [place], [place]. His name is Dr Shahid Christina. Dr Christina confirmed with Dr Buckley that patient last received rituxan on 12/24/19. Next dose is in [address] Christina reported that the pt's CPK has always been normal. However, the patient reportedly was positive for a genetic marker that suggests polymyositis. Dr Christina also confirmed pt was in [facility] in August. The pt's prednisone is managed by his primary automotive service consultant in [place], not rheumatology. The rituxan is mainly for the patient's interstitial lung disease. I received the pt's cardiology records from [place]. Patient had 3 heart caths - first in February 2019 -- left main stent deployed; nonobstructive CAD seen in other vessels. Had recurrent chest pain with +troponin in 03/2019 -- had repeat cath showing patient left main stent. 04/2019 - dx with viral myocarditis with troponin to 19. underwent 3rd heart cath on 05/17/2019 - again patent left main stent; nonobstructive CAD in other vessels. myocarditis treated with prednisone at that time. during 05/27/2019 office visit dx with PAF based on EKG at that visit. during my bedside rounds patient state's that the episode in the cardiology area today was similar to other episodes he has had over the last few weeks. he also reports having had a "spell" at about 0200 this am. apparently he was sleeping but awoke with his arms shaking. an MA came to bedside to check his BP; the cuff was tight and he feels it made the shaking worse. He then proceeded to lose consciousness. this was at about 0200. nursing documentation does not show or allude to the above event. tele overnight -- NSv-tach, about 20 beats, at ~2200 last night. patient was told about this - denies having had any symptoms about that time. we discussed rehab again post-d/c -- NOT agreeable to SNF placement; will only go to acute rehab. has mild cough but nothing severe. eating well - 100% of meals. Review of Systems Constitutional: + fatigue and + weakness; no fever, no chills, no body aches and no anorexia Ear, Nose, Mouth, Throat: + mouth lesions (tongue ); no sore throat and no dysphagia Respiratory: + cough and + dyspnea on exertion; no wheezing Cardiovascular: + palpitations (last pm during 0200 "spell" ) and + syncope; no chest pain, no orthopnea, no paroxysmal nocturnal dyspnea and no edema Gastrointestinal: no abdominal pain, no nausea and no vomiting Physical Exam Constitutional: + obese; no acute distress and no altered mental status ENMT: Mouth: + oral mucosal abnormality (probable thrush plaques tongue -- improving ) Respiratory: no respiratory distress Auscultation: + diminished lung sounds (bases) and + crackles (fine, bases - mild ); no wheezes Cardiovascular: Rate/Rhythm: regular rate and regular rhythm Heart Sounds: normal S1 and normal S2; no murmur Vessels: posterior tibial pulses present and dorsalis pedis pulses present; no JVD Extremities: no edema Gastrointestinal (Abdomen): normal bowel sounds, soft, nontender, no hepatosplenomegaly Skin: no rashes, warm and dry Psychiatric: Orientation: alert and oriented x 3 Results & Data Results & Data ([facility]) Vital Signs (Past 12 Hours) Vital Signs Temp Pulse Pulse Resp BP BP Pulse Ox 01/22/20 19:05 36.5 C 74 18 120/67 97 01/22/20 18:13 71 18 97 01/22/20 15:40 36.7 C 66 18 116/71 96 01/22/20 15:24 71 01/22/20 11:49 36.6 C 79 18 114/64 94 Laboratory Results Laboratory Results - last 24 hr 01/21/20 01/22/20 01/22/20 23:21 06:45 06:45 WBC 7.62 RBC 4.21 L Hgb 11.6 L Hct 35.9 L MCV 85.3 MCH 27.6 MCHC 32.3 RDW Std Deviation 55.8 H RDW Coeff of Lianne 17.8 H Plt Count 160 MPV 9.8 Immature Gran % (Auto) 1.4 Neut % (Auto) 90.9 Lymph % (Auto) 6.8 [place] % (Auto) 0.8 Eos % (Auto) 0.0 Baso % (Auto) 0.1 Neut # (Auto) 6.92 H Lymph # (Auto) 0.52 L [place] # (Auto) 0.06 L Eos # (Auto) 0.00 Baso # (Auto) 0.01 Immature Gran # (Auto) 0.11 H PT INR Sodium 142 Potassium 4.3 D Chloride 111 H Carbon Dioxide 26 Anion Gap 5.0 BUN 32 H Creatinine 1.47 H Est Cr Clr Drug Dosing 58.0 Est GFR ( Amer) 53.7 Est GFR (Non-Af Amer) 46.3 BUN/Creatinine Ratio 21.6 H Glucose 140 H POC Glucose 180 H Calcium 8.5 Total Bilirubin 0.4 Direct Bilirubin 0.1 AST 52 H ALT 151 H Alkaline Phosphatase 68 Troponin I < 0.015 Total Protein 5.9 L Albumin 2.8 L 01/22/20 01/22/20 01/22/20 06:45 07:35 11:36 WBC RBC Hgb Hct MCV MCH MCHC RDW Std Deviation RDW Coeff of Lianne Plt Count MPV Immature Gran % (Auto) Neut % (Auto) Lymph % (Auto) [place] % (Auto) Eos % (Auto) Baso % (Auto) Neut # (Auto) Lymph # (Auto) [place] # (Auto) Eos # (Auto) Baso # (Auto) Immature Gran # (Auto) PT 15.5 H INR 1.5 H Sodium Potassium Chloride Carbon Dioxide Anion Gap BUN Creatinine Est Cr Clr Drug Dosing Est GFR ( Amer) Est GFR (Non-Af Amer) BUN/Creatinine Ratio Glucose POC Glucose 168 H 323 H* Calcium Total Bilirubin Direct Bilirubin AST ALT Alkaline Phosphatase Troponin I Total Protein Albumin 01/22/20 01/22/20 01/22/20 11:37 14:29 14:30 WBC RBC Hgb Hct MCV MCH MCHC RDW Std Deviation RDW Coeff of Lianne Plt Count MPV Immature Gran % (Auto) Neut % (Auto) Lymph % (Auto) [place] % (Auto) Eos % (Auto) Baso % (Auto) Neut # (Auto) Lymph # (Auto) [place] # (Auto) Eos # (Auto) Baso # (Auto) Immature Gran # (Auto) PT INR Sodium Potassium Chloride Carbon Dioxide Anion Gap BUN Creatinine Est Cr Clr Drug Dosing Est GFR ( Amer) Est GFR (Non-Af Amer) BUN/Creatinine Ratio Glucose POC Glucose 307 H* 319 H* 353 H* Calcium Total Bilirubin Direct Bilirubin AST ALT Alkaline Phosphatase Troponin I Total Protein Albumin PG Care Time/CCT Total # of Minutes Spent Total Time Spent with Patient: Total time spent is greater than 50% in coordination of care (as documented) at patient's floor/unit and/or counseling patient: Prolonged Care Time Prolonged Care Time: Yes Total Prolonged Care Time: 70 Coding Level of Care Code 56280 Subseq Hosp Care Lvl 3 (25 - SIGNIFICANT, SEPARATELY IDENTIFIABLE ) Diagnoses Stroke-like symptoms R29.90 Polymyositis M33.20 Rheumatoid arthritis M06.9 Rheumatoid arthritis location: unspecified site Rheumatoid factor presence: unspecified presence History of aortic valve replacement Z95.2 Interstitial lung disease J84.9 Pneumonia J18.9 Laterality: right Lung location: unspecified part of lung Pneumonia type: due to unspecified organism CAD (coronary artery disease) I25.10 Associated angina: without angina Coronary Disease-Associated Artery/Lesion type: [place] artery [place] vs. transplanted heart: [place] heart Diabetes E11.42; Z79.4 Diabetes mellitus complication detail: with polyneuropathy Diabetes mellitus complication status: with neurologic complications Diabetes mellitus snf insulin use: with technician terminal and repeater use Diabetes mellitus type: type 2 Chest pain R07.9 Chest pain type: unspecified HLD (hyperlipidemia) E78.2 Hyperlipidemia type: mixed hyperlipidemia Gout M10.9 Chronicity: unspecified Gout etiology: unspecified cause Gout site: unspecified site Elevated serum creatinine R79.89 History of gastric bypass Z98.84 Chronic headache R51 Headache type: unspecified Intractability: not intractable Candidiasis of mouth and esophagus B37.81; B37.0 Nonsustained ventricular tachycardia I47.2 PAF (paroxysmal atrial fibrillation) I48.0 History of myocarditis Z86.79 DVT prophylaxis Z29.9 Additional Codes Prolonged Care Time - Prolonged Care Time: Yes ([id number]) Time Spent (min) 70 (1) Rheumatoid arthritis Rheumatoid arthritis location: unspecified site Rheumatoid factor presence: unspecified presence Qualified Code(s): M06.9 - Rheumatoid arthritis, unspecified (2) Diabetes Diabetes mellitus complication detail: with polyneuropathy Diabetes mellitus complication status: with neurologic complications Diabetes mellitus technician terminal and repeater insulin use: with technician terminal and repeater use Diabetes mellitus type: type 2 Qualified Code(s): E11.42 - Type 2 diabetes mellitus with diabetic polyneuropathy; 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 transplanted heart: [place] heart Qualified Code(s): I25.10 - Atherosclerotic heart disease of [place] coronary artery without angina pectoris (5) HLD (hyperlipidemia) Hyperlipidemia type: mixed hyperlipidemia Qualified Code(s): E78.2 - Mixed hyperlipidemia (6) Chronic headache Headache type: unspecified Intractability: not intractable Qualified Code(s): R51 - Headache (7) Chest pain Chest pain type: unspecified Qualified Code(s): R07.9 - Chest pain, unspecified (8) Pneumonia Laterality: right Lung location: unspecified part of lung Pneumonia type: due to unspecified organism Qualified Code(s): J18.9 - Pneumonia, unspecified organism
[2020-01-22] MEDS: ATORVASTATIN 40 MG TAB PO SCH (21:07)
[2020-01-22] MEDS: allopurinoL 100 MG TAB PO SCH (21:09)
[2020-01-22] MEDS ORDERED: ENOXAPARIN INJ 40 MG/0.4 ML SYR SQ ONE (21:35)
[2020-01-22] MEDS: bisacodyL 5 MG TABEC PO PRN (22:16)
[2020-01-23] MEDS: DEXTROSE 50% 50 ML SYRINGE IV PRN (01:53)
[2020-01-23 06:47] LABS: INR 1.6 (0.9-1.1); Prothrombin Time 16.3 Seconds (9.0-12.0)
[2020-01-23 07:07] LABS: Calcium 9.1 mg/dl (8.5-10.1); Creatinine Clr Calc Pharmacy 47.9 ml/min; Est GFR (African American) 42.3; Est GFR (Non-African American) 36.5; Potassium 4.2 mmol/L (3.5-5.1)
[2020-01-23] MEDS: ALBUT/IPRATROP 3MG/0.5MG NEB 3 ML VIAL INH SCH ×2 (07:13→19:05)
[2020-01-23] MEDS: cefTRIAXone SODIUM 2,000 MG in DEXTROSE 5% 50 ML IV SCH (09:07)
[2020-01-23] MEDS: TOPIRAMATE 50 MG TAB PO SCH ×2 (09:08→20:38)
[2020-01-23] MEDS: AZITHROMYCIN 250 MG TAB PO SCH (09:08)
[2020-01-23] MEDS: FINASTERIDE 5 MG TAB PO SCH (09:08)
[2020-01-23] MEDS: FLUTICASONE/VILANTEROL 100/25MCG 14 PUFFS/INHALER INH SCH (09:08)
[2020-01-23] MEDS: ISOSORBIDE MONO EXTENDED REL 30 MG TABCR PO SCH (09:08)
[2020-01-23] MEDS: predniSONE 10 MG TABLET PO SCH ×2 (09:08→20:38)
[2020-01-23] MEDS: PANTOprazole 40 MG TAB PO SCH (09:08)
[2020-01-23] MEDS: TORSEMIDE 20 MG TAB PO SCH (09:08)
[2020-01-23] MEDS: NYSTATIN SUSP 500,000 U/5 ML UDC PO SCH ×4 (09:08→20:38)
[2020-01-23] MEDS: PSYLLIUM 58.6% POWDER PACKET PO SCH (09:09)
[2020-01-23] MEDS: FERROUS SULFATE 325 MG TAB PO SCH ×2 (09:09→20:38)
[2020-01-23] MEDS: levETIRAcetam 500 MG TAB PO SCH ×2 (09:09→20:38)
[2020-01-23] MEDS: GABAPENTIN 300 MG CAP PO SCH ×2 (09:09→20:38)
[2020-01-23] MEDS: INSULIN ASPART 100 UNITS/ML 3 ML PEN SC SCH ×4 (09:10→20:38)
--- NOTE | 2020-01-23 09:11 | XRay Report ---
XR chest 2V PA/lateral HISTORY: 74 years-old Male ILD; ?RLL pneumonia; interval change follow-up study in a patient with bi basilar opacities COMPARISON: Chest radiograph 01/21/2020 TECHNIQUE: PA and lateral views of the chest FINDINGS: Cardiac silhouette is enlarged. Prior median sternotomy. Calcified plaque the thoracic aorta. A george ter is again noted projecting over the lower left hemithorax. Trace pleural effusions. Postoperative changes of the left lung base. There are persistent medial right lung base opacities which have mildl y improved. Partially imaged cervical spinal fusion hardware. Degenerative changes of the shoulders a nd spine. IMPRESSION: 1. Mild improvement of the persistent medial right lung base opacities which may reflect a resolving pneumonia. 2. Cardiomegaly without overt pulmonary edema. 3. Postoperative changes of the left lung base. 4. Catheter projecting over the left lower hemithorax redemonstrated. ACT 112: Negative or not required by law. The above report was generated using voice recognition software. It may contain grammatical, syntax o r spelling errors. Electronically signed by: Terry Orozco M.D. 01/23/2020 9:09 AM
[2020-01-23] MEDS ORDERED: LANTUS PER UNIT CHARGE SQ STA (09:25)
--- NOTE | 2020-01-23 11:34 | Electrocardiogram Report ---
Test Reason : Blood Pressure : / mmHG Vent. Rate : 072 BPM Atrial Rate : 072 BPM P-R Int : 104 ms QRS Dur : 086 ms QT Int : 414 ms P-R-T Axes : -14 047 085 degrees QTc Int : 453 ms Poor data quality, interpretation may be adversely affected Sinus rhythm with short [place] with Premature atrial complexes with Aberrant conduction Nonspecific ST and T wave abnormality Abnormal ECG No previous ECGs available Confirmed by Shahid Cross ([id number]) on 01/23/2020 11:33:42 AM Referred By: REFERRED SELF Confirmed By:Shahid Cross
[2020-01-23] MEDS: ENOXAPARIN INJ 40 MG/0.4 ML SYR SQ SCH (12:21)
[2020-01-23] MEDS: INSULIN GLARGINE 100 UNIT/ML VIAL SC SCH (13:41)
--- NOTE | 2020-01-23 14:12 | Hospitalist Progress Note ---
Date of Service January 23, 2020 Assessment & Plan (1) Abdominal pain, RLQ: Had such earlier this month while hospitalized at [facility]. Thought to be constipation. Seen by GI at [facility]. x-rays there c/w constipation. pain has not caused anorexia, and eating does not make pain worse. no vomiting. no fever. will start with abd x-rays to assess stool load. strongly consider CT if abd x-rays are unremarkable. of note - patient does not have appendix nor his gall bladder. (2) Stroke-like symptoms: No events in over 24 hours. Patient with recurrent spells of "shaking" arms followed by brief loss of consciousness but no prolonged post-ictal state. spells could be TIAs vs complex partial seizures. Latter is favored despite negative EEG. Evaluated by Dr Sheikh - topamax (patient had been taking for chronic migraines) increased to 50mg BID. During the pt's echo yesterday am he had another spell witnessed by pathology technologist and health inspector food. Dr Sheikh advised adding keppra 500mg BID to his regimen to cover for complex partial seizures. MRI brain this admission without old or new stroke. Will likely need continuous EEG monitoring as outpatient. Keep on telemetry. Seizure precautions. 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 CPK wnl. CRP 0. TSH wnl. B12 wnl. Lyme negative. Aldolase - pending. Mild proximal muscle weakness on right but left fairly normal. This is odd give n the asymmetry. Follows with Dr Shahid Christina in [place] ([phone]). On chronic prednisone 10mg BID. Had opinion from [facility] in August 2019 for polymyositis and his ILD. Rituxan x 2 doses given since that visit. Last dose - 12/24/2019. Dr Buckley from [facility] spoke with pt's primary box machine operator in [place] on 01/21 -- prior CPKs have always been normal. No changes to meds recommended by his primary box machine operator. Cont prednisone 10mg BID. Suspect that patient has severe deconditioning in face of numerous medical problems and recent hospitalization in [place]. Cannot rule out a steroid-induced myopathy. (4) Rheumatoid arthritis: Not active at this time. Cont prednisone. (5) History of aortic valve replacement: 2003 - following aortic dissection. Continue coumadin. INR goal 2-3. INR 1.6 today. Give additional 2.5mg of coumadin today in addition to regular dose of 7.5mg (I did this yesterday as well). Repeat INR am. While awaiting INR to rise to >2 continue lovenox 40mg daily. Echo 04/2019 with intact valve function. Echo at [facility] - although limited - with presumed intact valve function. (6) Interstitial lung disease: Likely 2nd to RA. Continue Prednisone. Continue duonebs BID. Continue Fluticasone/Vilanterol. CXR 01/20 with ?RLL pneumonia - started rocephin for such. Repeat cxr today with clearing RLL infiltrate. Uncertain if pneumonia but will finish a course of abx. Change rocephin to omnicef. Complete 5 more days of latter. Already taking chronic zithromax for prophylaxis (MAC prevention?). (7) Pneumonia: question of - RLL - based on cxr 01/20. repeat cxr today with resolving RLL infiltrate. will finish course of abx - change rocephin to omnicef starting in am. complete 5 days of omnicef. already on chronic zithromax 3 days/week. (8) CAD (coronary artery disease): Having 1-2x's a week episodes of chest pain but negative heart cath x 2 in 03/2019 and 04/2019. Had chest pain earlier this stay - resolved with nitro. Despite such had negative troponins. Etiology of chest pain? GI? Pulmonary? Musculoskeletal from sternal arthritis/scar tissue? other? Continue Atorvastatin. Patient is not on ASA, ALMA-inhibitor or BB (states he cannot tolerate Beta- blockers). At minimum would expect he should be on aspirin. Records from [facility] state that he had chest pain while hospitalized earlier this month with negative biomarkers. Imdur added then. Cont imdur. (9) Diabetes: Very labile during the stay. Has lability and lows at home. Lower lantus to 35 am and 40 units pm. adjust novolog. a1c 8.1%. (10) Chest pain: See discussion in CAD. echo with intact LV wall motion. 02/2019 - cath with left main stent placement. 03/2019 - patent left main stent with minimal nonobstructive CAD in other vessels. 04/2019 cath in [place] - patent left main stent. (11) HLD (hyperlipidemia): Statin (12) Gout: Cont allopurinol prophylaxis (13) History of gastric bypass: Noted. Iron studies c/w iron def - consider venofer. Oral Fe in meantime. Checked B12 level - wnl. (14) Chronic headache: migraines per patient -- cont topamax prophylaxis. no headache today. (15) Candidiasis of mouth and esophagus: nystatin 5cc ac/hs improved. (16) Nonsustained ventricular tachycardia: 20-beat run - no symptoms and did not correlate with his shaking spells - on 01/21/20. continue to monitor. no other runs since. 04/2019 cath in [place] with patent left main stent and minimal nonobstructive CAD in other vessels. (17) PAF (paroxysmal atrial fibrillation): seen incidentally during cardiology office visit in [place] on 05/27/19 per records. continue tele monitoring. no a.fib during the stay thus far. is on chronic coumadin. 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 Presented with fever, chest pain, +troponin with peak to 18. Cath at that time with patent left main stent and nonobstructive CAD in other vessels. Treated with prednisone. Echo 01/22/20 here - although limited - with preserved EF. Troponins here negative. (19) Chronic kidney disease, stage 3a: records from [facility] with Cr 1.6 today he is 1.7 near baseline BMP am (20) DVT prophylaxis: coumadin lovenox 40mg SC daily while awaiting INR to become therapeutic cont PT/OT needs rehab very deconditioned [facility] Admission and Anticipated Discharge Date Admission Date: January 20, 2020 Subjective patient reports RLQ abd pain beginning sometime last night. pain is NOT worsened by eating, and he continues to consume 100% of meals. he had pain in the same location during his [facility] stay earlier this month. records showed that he had abd x-rays revealing mod-severe constipation. he was seen by GI who did not perform endoscopy. recommended outpatient f/u. patient states he had the pain overnight and into this am. worse with movement. had very firm/hard BM this am and this was associated with straining. prior to that it had been a few days since his last BM. no vomiting. denies severe cough. denies orthopnea. worked with PT today - was dyspneic with walking. no chest pain. he also denies ANY shaking spells in over 24 hours. tele overnight - 1 brief run of PAT; no NSVT. Review of Systems Constitutional: + fatigue; no fever, no chills and no anorexia Respiratory: + cough; no wheezing Cardiovascular: no chest pain, no orthopnea, no paroxysmal nocturnal dyspnea and no syncope Gastrointestinal: as per Subjective / HPI, + abdominal pain and + constipation; no nausea, no vomiting and no blood in stools Physical Exam Constitutional: + obese; no acute distress and no altered mental status ENMT: Mouth: + oral mucosal abnormality (thrush resolving ) Respiratory: no respiratory distress Auscultation: + diminished lung sounds (bases) and + crackles (fine, bases - mainly left base); no wheezes Cardiovascular: Rate/Rhythm: regular rate and regular rhythm Heart Sounds: normal S1 and normal S2 (mechanical closure sound); no murmur Vessels: posterior tibial pulses present and dorsalis pedis pulses present; no JVD Extremities: no edema Gastrointestinal (Abdomen): Inspection/Auscultation: normal bowel sounds; abdomen not distended Percussion/Palpation: + abdomen tender (RLQ; multiple scars over abd wall ) and + abdominal mass (lap band adjuster leader just to left of midline abdomen ); no hernia (no inguinal hernias ) Skin: no rashes, warm and dry Psychiatric: Orientation: alert and oriented x 3 Results & Data Results & Data ([facility]) Vital Signs (Past 12 Hours) Vital Signs Temp Pulse Pulse Resp BP Pulse Ox 01/23/20 11:17 36.5 C 72 17 126/73 98 01/23/20 07:30 36.3 C L 69 18 119/68 100 01/23/20 07:28 60 01/23/20 07:15 76 16 98 Laboratory Results Laboratory Results - last 24 hr 01/22/20 01/22/20 01/23/20 14:29 14:30 01:47 PT INR Sodium Potassium Chloride Carbon Dioxide Anion Gap BUN Creatinine Est Cr Clr Drug Dosing Est GFR ( Amer) Est GFR (Non-Af Amer) BUN/Creatinine Ratio Glucose POC Glucose 319 H* 353 H* 36 L* Calcium 01/23/20 01/23/20 01/23/20 01:49 02:05 05:55 PT INR Sodium Potassium Chloride Carbon Dioxide Anion Gap BUN Creatinine Est Cr Clr Drug Dosing Est GFR ( Amer) Est GFR (Non-Af Amer) BUN/Creatinine Ratio Glucose POC Glucose 33 L* 93 80 Calcium 01/23/20 01/23/20 01/23/20 06:23 06:23 07:59 PT 16.3 H INR 1.6 H Sodium 142 Potassium 4.2 Chloride 110 H Carbon Dioxide 24 Anion Gap 8.0 BUN 39 H Creatinine 1.79 H D Est Cr Clr Drug Dosing 47.9 Est GFR ( Amer) 42.3 Est GFR (Non-Af Amer) 36.5 BUN/Creatinine Ratio 22.0 H Glucose 68 L POC Glucose 124 H Calcium 9.1 01/23/20 11:48 PT INR Sodium Potassium Chloride Carbon Dioxide Anion Gap BUN Creatinine Est Cr Clr Drug Dosing Est GFR ( Amer) Est GFR (Non-Af Amer) BUN/Creatinine Ratio Glucose POC Glucose 196 H Calcium PG Care Time/CCT Total # of Minutes Spent Total Time Spent with Patient: Total time spent is greater than 50% in coordination of care (as documented) at patient's floor/unit and/or counseling patient: Coding Level of Care Code 52910 Subseq Hosp Care Lvl 3 Diagnoses Abdominal pain, RLQ R10.31 Stroke-like symptoms R29.90 Polymyositis M33.20 Rheumatoid arthritis M06.9 Rheumatoid arthritis location: unspecified site Rheumatoid factor presence: unspecified presence History of aortic valve replacement Z95.2 Interstitial lung disease J84.9 Pneumonia J18.9 Laterality: right Lung location: unspecified part of lung Pneumonia type: due to unspecified organism CAD (coronary artery disease) I25.10 Associated angina: without angina Coronary Disease-Associated Artery/Lesion type: [place] artery [place] vs. transplanted heart: [place] heart Diabetes E11.42; Z79.4 Diabetes mellitus complication detail: with polyneuropathy Diabetes mellitus complication status: with neurologic complications Diabetes mellitus terminal computer operator insulin use: with terminal computer operator use Diabetes mellitus type: type 2 Chest pain R07.9 Chest pain type: unspecified HLD (hyperlipidemia) E78.2 Hyperlipidemia type: mixed hyperlipidemia Gout M10.9 Chronicity: unspecified Gout etiology: unspecified cause Gout site: unspecified site History of gastric bypass Z98.84 Chronic headache R51 Headache type: unspecified Intractability: not intractable Candidiasis of mouth and esophagus B37.81; B37.0 Nonsustained ventricular tachycardia I47.2 PAF (paroxysmal atrial fibrillation) I48.0 History of myocarditis Z86.79 Chronic kidney disease, stage 3a N18.3 DVT prophylaxis Z29.9 (1) Rheumatoid arthritis Rheumatoid arthritis location: unspecified site Rheumatoid factor presence: unspecified presence Qualified Code(s): M06.9 - Rheumatoid arthritis, unspecified (2) Diabetes Diabetes mellitus complication detail: with polyneuropathy Diabetes mellitus complication status: with neurologic complications Diabetes mellitus terminal computer operator insulin use: with senior care use Diabetes mellitus type: type 2 Qualified Code(s): E11.42 - Type 2 diabetes mellitus with diabetic polyneuropathy; Z79.4 - MCC (current) use of insulin (3) Gout Chronicity: unspecified Gout etiology: unspecified cause Gout site: unspecified site Qualified Code(s): M10.9 - Gout, unspecified (4) CAD (coronary artery disease) Associated angina: without angina Coronary Disease-Associated Artery/Lesion type: [place] artery [place] vs. transplanted heart: [place] heart Qualified Code(s): I25.10 - Atherosclerotic heart disease of [place] coronary artery without angina pectoris (5) HLD (hyperlipidemia) Hyperlipidemia type: mixed hyperlipidemia Qualified Code(s): E78.2 - Mixed hyperlipidemia (6) Chronic headache Headache type: unspecified Intractability: not intractable Qualified Code(s): R51 - Headache (7) Chest pain Chest pain type: unspecified Qualified Code(s): R07.9 - Chest pain, unspecified (8) Pneumonia Laterality: right Lung location: unspecified part of lung Pneumonia type: due to unspecified organism Qualified Code(s): J18.9 - Pneumonia, unspecified organism
--- NOTE | 2020-01-23 15:38 | XRay Report ---
XR abdomen min 2V CLINICAL HISTORY: RLQ abd pain; severe constipation?? COMPARISON STUDY: No previous studies for comparison. FINDINGS: There are minimally prominent left mid abdominal small bowel loops. There is no conventiona l radiographic evidence of bowel obstruction. There is moderate right colonic stool. There is a lap b and device present. There are surgical clips in the right upper quadrant consistent with a prior chol ecystectomy. Radiopaque seeds project over the prostate. There are surgical clips within the left mid to upper abdomen laterally. IMPRESSION: 1. Mildly prominent left mid abdominal small bowel loops, but no current conventional radiographic ev idence of bowel obstruction 2. Moderate right colonic stool ACT 112: Negative or not required by law. Electronically signed by: Rodriguez Veloz M.D. 01/23/2020 3:37 PM
[2020-01-23] MEDS: WARFARIN SOD 7.5 MG TAB PO SCH (15:41)
[2020-01-23] MEDS ORDERED: bisacodyL 5 MG TABEC PO ONE (15:43)
[2020-01-23] MEDS ORDERED: WARFARIN SOD 2.5 MG TAB PO ONE (16:15)
[2020-01-23] MEDS: POLYETHYLENE (MIRALAX) 17 GM PACK PO SCH ×3 (17:34→19:19)
[2020-01-23] MEDS: ACETAMINOPHEN 325 MG TAB PO PRN ×2 (17:35→21:46)
[2020-01-23] MEDS: allopurinoL 100 MG TAB PO SCH (20:38)
[2020-01-23] MEDS: ATORVASTATIN 40 MG TAB PO SCH (20:38)
[2020-01-23] MEDS ORDERED: INSULIN GLARGINE 100 UNIT/ML VIAL SC SCH (21:00)
[2020-01-24] MEDS: ALBUT/IPRATROP 3MG/0.5MG NEB 3 ML VIAL INH SCH ×2 (06:54→19:14)
[2020-01-24 08:05] LABS: Eosinophils # (auto) 0.02 K/uL (0-0.5); Eosinophils % (auto) 0.4 %; Hematocrit (blood only) 37.9 % (42-52); Hemoglobin 11.9 g/dL (14.0-18.0); Immature Granulocytes # (auto) 0.13 K/uL (0.00-0.02); Immature Granulocytes % (auto) 2.5 %; Lymphocytes # (auto) 0.69 K/uL (1.2-3.4); Lymphocytes % (auto) 13.1 %; Mean Corpuscular Hemoglobin 27.1 pg (25-34); Mean Corpuscular Hgb Conc 31.4 g/dL (32-36); Mean Corpuscular Volume 86.3 fL (80-100); Mean Platelet Volume 9.1 fL (7.4-10.4); Monocytes # (auto) 0.23 K/uL (0.11-0.59); Monocytes % (auto) 4.4 %; Neutrophils # (auto) 4.19 K/uL (1.4-6.5); Neutrophils % (auto) 79.6 %; Platelet Count 136 K/uL (130-400); RDW Coefficient of Variation 17.7 % (11.5-14.5); RDW Standard Deviation 55.8 fL (36.4-46.3); Red Blood Count 4.39 M/uL (4.7-6.1); White Blood Count 5.26 K/uL (4.8-10.8)
[2020-01-24 08:14] LABS: INR 2.2 (0.9-1.1); Prothrombin Time 22.3 Seconds (9.0-12.0)
[2020-01-24] MEDS: FLUTICASONE/VILANTEROL 100/25MCG 14 PUFFS/INHALER INH SCH (08:35)
[2020-01-24] MEDS: TORSEMIDE 20 MG TAB PO SCH (08:36)
[2020-01-24] MEDS: levETIRAcetam 500 MG TAB PO SCH ×2 (08:36→20:38)
[2020-01-24] MEDS: ENOXAPARIN INJ 40 MG/0.4 ML SYR SQ SCH (08:36)
[2020-01-24] MEDS: ISOSORBIDE MONO EXTENDED REL 30 MG TABCR PO SCH (08:36)
[2020-01-24] MEDS: FERROUS SULFATE 325 MG TAB PO SCH ×2 (08:36→20:37)
[2020-01-24] MEDS: PANTOprazole 40 MG TAB PO SCH (08:37)
[2020-01-24] MEDS: TOPIRAMATE 50 MG TAB PO SCH ×2 (08:37→20:38)
[2020-01-24] MEDS: GABAPENTIN 300 MG CAP PO SCH ×2 (08:37→20:38)
[2020-01-24] MEDS: CEFDINIR 300 MG CAP PO SCH ×2 (08:37→20:38)
[2020-01-24] MEDS: predniSONE 10 MG TABLET PO SCH ×2 (08:37→20:38)
[2020-01-24] MEDS: PSYLLIUM 58.6% POWDER PACKET PO SCH (08:37)
[2020-01-24] MEDS: FINASTERIDE 5 MG TAB PO SCH (08:37)
[2020-01-24] MEDS: NYSTATIN SUSP 500,000 U/5 ML UDC PO SCH ×4 (08:37→20:46)
[2020-01-24 08:42] LABS: Albumin Level 3.1 gm/dl (3.4-5.0); BUN Creatinine Ratio 22.6 (10-20); Calcium 9.2 mg/dl (8.5-10.1); Est GFR (African American) 44.4; Est GFR (Non-African American) 38.3; Magnesium 2.4 mg/dl (1.8-2.4); Potassium 3.6 mmol/L (3.5-5.1)
[2020-01-24] MEDS: INSULIN ASPART 100 UNITS/ML 3 ML PEN SC SCH ×4 (08:42→20:39)
[2020-01-24 08:45] LABS: Albumin Globulin Ratio 0.9 (0.9-2); Bilirubin,Total 0.4 mg/dl (0.2-1); Globulin 3.3 gm/dl (2.5-4.0); Phosphorus 2.6 mg/dl (2.5-4.9); Total Protein 6.4 gm/dl (6.4-8.2)
[2020-01-24] MEDS: bisacodyL 5 MG TABEC PO PRN (11:50)
[2020-01-24] MEDS: ACETAMINOPHEN 325 MG TAB PO PRN ×2 (12:27→23:56)
[2020-01-24] MEDS ORDERED: MAGNESIUM CITRATE 296 ML/BTL PO STA (14:43)
--- NOTE | 2020-01-24 14:43 | Hospitalist Progress Note ---
Date of Service January 24, 2020 Assessment & Plan (1) Abdominal pain, RLQ: Had such earlier this month while hospitalized at [facility]. Thought to be constipation. - Mg Citrate today for ongoing pain and constipation (2) Stroke-like symptoms: Patient with recurrent spells of "shaking" arms followed by brief loss of consciousness but no prolonged post-ictal state. Spells could be complex partial seizures vs. pseudoseizures. MRI brain this admission without old or new stroke. - Negative EEG on 01/20. - Evaluated by Dr Sheikh - Topamax (patient had been taking for chronic migraines) increased to 50mg BID. - Added Keppra 500mg BID to his regimen to cover for complex partial seizures on 01/21. - None since then. - May need continuous EEG monitoring as outpatient. 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 CPK wnl. CRP 0. TSH wnl. B12 wnl. Lyme negative. Aldolase - pending. Mild proximal muscle weakness on right but left fairly normal. This is odd given the asymmetry. Follows with Dr Shahid Christina in [place] ([phone]). On chronic prednisone 10mg BID. Had opinion from [facility] in August 2019 for polymyositis and his ILD. Rituxan x 2 doses given since that visit. Last dose - 12/24/2019. Dr Buckley from [facility] spoke with pt's primary gambreler in [place] on 01/21 -- prior CPKs have always been normal. No changes to meds recommended by his primary gambreler. - Continue prednisone 10mg BID. (4) Rheumatoid arthritis: Not active at this time. - Continue prednisone. (5) History of aortic valve replacement: 2003 - following aortic dissection. Echo at [facility] - although limited - with presumed intact valve function. - Continue warfarin. - INR goal 2-3: 2.2 today. (6) Interstitial lung disease: Likely 2nd to RA. Continue Prednisone. Continue duonebs BID. Continue Fluticasone/Vilanterol. CXR 01/20 with ?RLL pneumonia - started rocephin for such. Repeat cxr today with clearing RLL infiltrate. Uncertain if pneumonia but will finish a course of abx. Change rocephin to omnicef. Complete 5 more days of latter. Already taking chronic zithromax for prophylaxis (MAC prevention?). (7) Pneumonia: Question of - RLL - based on cxr 01/20. - Repeat CXR on 01/22 with resolving RLL infiltrate. - Will finish course of abx - changed Rocephin to Omnicef on 01/23. - Already on chronic azithromycin 3 days/week. (8) CAD (coronary artery disease): Having 1-2x's a week episodes of chest pain but negative heart cath x 2 in 03/2019 and 04/2019. Had chest pain earlier this stay - resolved with nitro. Despite such had negative troponins. - Continue atorvastatin. - Patient is not on ASA, ALMA-inhibitor or BB (states he cannot tolerate Beta- blockers). - Continue Imdur. (9) Diabetes: A1c was 8.1% this admission. - Very labile during the stay. - Continue lower Lantus at 45 units HS - Continue sliding scale insulin -> Mostly near 200, but dropped 100 mg/dL overnight. Indicates his long-acting is too high and sliding scale is not tight enough. Will lower Lantus and tighten his meal-time. (10) Gout: No flare right now. - Continue allopurinol (11) History of gastric bypass: Noted. Iron studies c/w iron def - consider Venofer. - Continue oral Fe in meantime. - Checked B12 level - wnl. (12) Chronic headache: Migraines per patient. - Continue Topamax prophylaxis. - No headache today. (13) Candidiasis of mouth and esophagus: - Nystatin 5cc ac/hs - Improved. (14) Nonsustained ventricular tachycardia: 20-beat run - no symptoms and did not correlate with his shaking spells - on 01/21/20. Another on 01/23. - Continue to monitor. (15) PAF (paroxysmal atrial fibrillation): Seen incidentally during cardiology office visit in [place] on 05/27/19 per records. - No a.fib during the stay thus far. - Continue chronic warfarin. 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 Presented with fever, chest pain, +troponin with peak to 18. - Cath at that time with patent left main stent and non-obstructive CAD in other vessels. - Treated with prednisone. (17) Chronic kidney disease, stage 3a: Records from [facility] with Cr 1.6. - Cr stable as baseline. (18) DVT prophylaxis: On warfarin for paroxsymal afib: INR at 2.2 on 01/23. Admission and Anticipated Discharge Date Admission Date: January 20, 2020 Subjective Doing ok today. Having some right inguinal pain that he attributes to constipation. Reports no fevers/chills, chest pain, shortness of breath, abdominal pain, nausea, or vomiting. Physical Exam Constitutional: WD/WN, vitals as above Eyes: EOM intact bilaterally; no conjunctival abnormality ENMT: external ear and nose normal, oropharynx normal Neck: trachea midline, no thyromegaly normal visual inspection Respiratory: normal respiratory effort, lungs clear to auscultation no respiratory distress Cardiovascular: RRR, no murmur, no edema Gastrointestinal (Abdomen): Inspection/Auscultation: abdomen normal to inspection; abdomen not distended Musculoskeletal: no cyanosis or clubbing, extremities motor strength 5/5 Skin: no rashes, warm and dry Neurologic: moves all extremities and awake Psychiatric: Orientation: alert, oriented to person and cooperative Results & Data Results & Data ([facility]) Vital Signs (Past 12 Hours) Vital Signs Temp Pulse Pulse Resp BP BP Pulse Ox 01/24/20 11:57 36.9 C 83 20 132/79 97 01/24/20 07:37 36.6 C 62 20 112/66 98 01/24/20 07:14 69 01/24/20 06:55 18 95 01/24/20 04:05 36.5 C 63 19 117/63 99 PG Care Time/CCT Total # of Minutes Spent Total Time Spent with Patient: Total time spent is greater than 50% in coordi nation of care (as documented) at patient's floor/unit and/or counseling patient: Coding Level of Care Code 14347 Subseq Hosp Care Lvl 2 Diagnoses Abdominal pain, RLQ R10.31 Stroke-like symptoms R29.90 Polymyositis M33.20 Rheumatoid arthritis M06.9 Rheumatoid arthritis location: unspecified site Rheumatoid factor presence: unspecified presence History of aortic valve replacement Z95.2 Interstitial lung disease J84.9 Pneumonia J18.9 Pneumonia type: due to unspecified organism Laterality: right Lung location: unspecified part of lung CAD (coronary artery disease) I25.10 Coronary Disease-Associated Artery/Lesion type: [place] artery [place] vs. transplanted heart: [place] heart Associated angina: without angina Diabetes E11.42; Z79.4 Diabetes mellitus type: type 2 Diabetes mellitus prison insulin use: with prison use Diabetes mellitus complication status: with neurologic complications Diabetes mellitus complication detail: with polyneuropathy Gout M10.9 Gout site: unspecified site Gout etiology: unspecified cause Chronicity: unspecified History of gastric bypass Z98.84 Chronic headache R51 Headache type: unspecified Intractability: not intractable Candidiasis of mouth and esophagus B37.81; B37.0 Nonsustained ventricular tachycardia I47.2 PAF (paroxysmal atrial fibrillation) I48.0 History of myocarditis Z86.79 Chronic kidney disease, stage 3a N18.3 DVT prophylaxis Z29.9 (1) Rheumatoid arthritis Rheumatoid arthritis location: unspecified site Rheumatoid factor presence: unspecified presence Qualified Code(s): M06.9 - Rheumatoid arthritis, unspecified (2) Pneumonia Pneumonia type: due to unspecified organism Laterality: right Lung location: unspecified part of lung Qualified Code(s): J18.9 - Pneumonia, unspecified organism (3) CAD (coronary artery disease) Coronary Disease-Associated Artery/Lesion type: [place] vs. transplanted heart: [place] heart Associated angina: without angina Qualified Code(s): I25.10 - Atherosclerotic heart disease of [place] artery without angina pectoris (4) Diabetes Diabetes mellitus type: type 2 Diabetes mellitus termite technician insulin use: with prison use Diabetes mellitus complication status: with neurologic complications Diabetes mellitus complication detail: with polyneuropathy Qualified Code(s): E11.42 - Type 2 diabetes mellitus with diabetic polyneuropathy; Z79.4 - watermelon harvesting supervisor (current) use of insulin (5) Gout Gout site: unspecified site Gout etiology: unspecified cause Chronicity: unspecified Qualified Code(s): M10.9 - Gout, unspecified (6) Chronic headache Headache type: unspecified Intractability: not intractable Qualified Code(s): R51 - Headache
[2020-01-24] MEDS: WARFARIN SOD 5 MG TAB PO SCH (17:07)
[2020-01-24] MEDS ORDERED: SOD PHOSPHATE/SOD BIPHOSPHATE ENEMA 132 ML BTL PR STA (18:44)
[2020-01-24] MEDS: ATORVASTATIN 40 MG TAB PO SCH (20:37)
[2020-01-24] MEDS: INSULIN GLARGINE 100 UNIT/ML VIAL SC SCH (20:38)
[2020-01-24] MEDS: allopurinoL 100 MG TAB PO SCH (20:38)
[2020-01-25] MEDS: ALBUT/IPRATROP 3MG/0.5MG NEB 3 ML VIAL INH SCH ×2 (06:56→19:14)
[2020-01-25 07:45] LABS: Hematocrit (blood only) 37.1 % (42-52); Hemoglobin 11.6 g/dL (14.0-18.0); Mean Corpuscular Hemoglobin 27.2 pg (25-34); Mean Corpuscular Hgb Conc 31.3 g/dL (32-36); Mean Corpuscular Volume 86.9 fL (80-100); Mean Platelet Volume 9.7 fL (7.4-10.4); Platelet Count 144 K/uL (130-400); RDW Coefficient of Variation 17.8 % (11.5-14.5); RDW Standard Deviation 56.5 fL (36.4-46.3); Red Blood Count 4.27 M/uL (4.7-6.1); White Blood Count 5.53 K/uL (4.8-10.8)
[2020-01-25 08:16] LABS: Albumin Level 2.9 gm/dl (3.4-5.0); Calcium 8.9 mg/dl (8.5-10.1); Creatinine Clr Calc Pharmacy 52.4 ml/min; Est GFR (African American) 48.1; Est GFR (Non-African American) 41.5; Magnesium 2.8 mg/dl (1.8-2.4)
[2020-01-25 08:19] LABS: Bilirubin,Total 0.4 mg/dl (0.2-1); Total Protein 5.9 gm/dl (6.4-8.2)
[2020-01-25] MEDS: FLUTICASONE/VILANTEROL 100/25MCG 14 PUFFS/INHALER INH SCH (08:30)
[2020-01-25] MEDS: ACETAMINOPHEN 325 MG TAB PO PRN (08:30)
[2020-01-25] MEDS: FERROUS SULFATE 325 MG TAB PO SCH ×2 (08:31→21:07)
[2020-01-25] MEDS: NYSTATIN SUSP 500,000 U/5 ML UDC PO SCH ×4 (08:31→21:06)
[2020-01-25] MEDS: ISOSORBIDE MONO EXTENDED REL 30 MG TABCR PO SCH (08:31)
[2020-01-25] MEDS: levETIRAcetam 500 MG TAB PO SCH ×2 (08:31→21:06)
[2020-01-25] MEDS: ENOXAPARIN INJ 40 MG/0.4 ML SYR SQ SCH (08:31)
[2020-01-25] MEDS: PSYLLIUM 58.6% POWDER PACKET PO SCH (08:31)
[2020-01-25] MEDS: TORSEMIDE 20 MG TAB PO SCH (08:31)
[2020-01-25] MEDS: TOPIRAMATE 50 MG TAB PO SCH ×2 (08:32→21:06)
[2020-01-25] MEDS: CEFDINIR 300 MG CAP PO SCH ×2 (08:32→21:07)
[2020-01-25] MEDS: GABAPENTIN 300 MG CAP PO SCH ×2 (08:32→21:07)
[2020-01-25] MEDS: FINASTERIDE 5 MG TAB PO SCH (08:32)
[2020-01-25] MEDS: PANTOprazole 40 MG TAB PO SCH (08:32)
[2020-01-25] MEDS: predniSONE 10 MG TABLET PO SCH ×2 (08:32→21:07)
[2020-01-25] MEDS: INSULIN ASPART 100 UNITS/ML 3 ML PEN SC SCH ×4 (08:36→21:04)
[2020-01-25] MEDS: MoRPHine SULFATE 2 MG/ML CARP IV PRN ×3 (10:58→22:03)
[2020-01-25] MEDS: ONDANSETRON INJ 2 MG/ML 2 ML VIAL IV PRN ×2 (10:58→16:57)
--- NOTE | 2020-01-25 12:13 | Hospitalist Progress Note ---
Date of Service January 25, 2020 Assessment & Plan (1) Abdominal pain, RLQ: Had such earlier this month while hospitalized at [facility]. Thought to be constipation. - Had large BM on 01/23 after fleet enema and has continued pain. Area would be in the inguinal canal area, but no hernia felt. - Added low-dose pain medication. - Urgent ultrasound after discussion with radiology to r/o testicular torsion or hernia. (2) Stroke-like symptoms: Patient with recurrent spells of "shaking" arms followed by brief loss of consciousness but no prolonged post-ictal state. Spells could be complex partial seizures vs. pseudoseizures. MRI brain this admission without old or new stroke. - Negative EEG on 01/20. - Evaluated by Dr Sheikh - Topamax (patient had been taking for chronic migraines) increased to 50mg BID. - Added Keppra 500mg BID to his regimen to cover for complex partial seizures on 01/21. - Another episode in the context of being anxious/upset about his right inguinal pain. - May need continuous EEG monitoring -> Will discuss referral to tertiary care with his son. Patient seems amenable if felt to be needed. 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 CPK wnl. CRP 0. TSH wnl. B12 wnl. Lyme negative. Aldolase - 12.5 Mild proximal muscle weakness on right but left fairly normal. This is odd given the asymmetry. Follows with Dr Shahid Christina in [place] ([phone]). On chronic prednisone 10mg BID. Had opinion from [facility] in August 2019 for polymyositis and his ILD. Rituxan x 2 doses given since that visit. Last dose - 12/24/2019. Dr Buckley from [employer] spoke with pt's primary coloring room man in [place] on 01/21 -- prior CPKs have always been normal. No changes to meds recommended by his primary coloring room man. - Continue prednisone 10mg BID. (4) Rheumatoid arthritis: Not active at this time. - Continue prednisone. (5) History of aortic valve replacement: 2003 - following aortic dissection. Echo at [facility] - although limited - with presumed intact valve function. - Continue warfarin. - INR goal 2-3: 2.2 last check. (6) Interstitial lung disease: Likely 2nd to RA. - Continue prednisone, DuoNebs BID, & fluticasone/vilanterol. CXR 01/20 with ?RLL pneumonia - started rocephin for such. Repeat cxr today with clearing RLL infiltrate. Uncertain if pneumonia but will finish a course of abx. Change rocephin to omnicef. Complete 5 more days of latter. Already taking chronic zithromax for prophylaxis (MAC prevention?). - Stable today. (7) Pneumonia: Question of - RLL - based on cxr 01/20. - Repeat CXR on 01/22 with resolving RLL infiltrate. - Will finish course of abx - changed Rocephin to Omnicef on 01/23. - Already on chronic azithromycin 3 days/week. (8) CAD (coronary artery disease): Having 1-2x's a week episodes of chest pain but negative heart cath x 2 in 03/2019 and 04/2019. Had chest pain earlier this stay - resolved with nitro. Despite such had negative troponins. - Continue atorvastatin. - Patient is not on ASA, ALMA-inhibitor or BB (states he cannot tolerate Beta- blockers). - Continue Imdur. (9) Diabetes: A1c was 8.1% this admission. - Very labile during the stay. - Continue lower Lantus at 35 units HS - Continue sliding scale insulin -> Much better overnight stability with Lantus 35 units HS and a tighter sliding scale. Will keep steady today. (10) Gout: No flare right now. - Continue allopurinol (11) History of gastric bypass: Noted. Iron studies c/w iron def - consider Venofer. - Continue oral Fe in meantime. - Checked B12 level - wnl. (12) Chronic headache: Migraines per patient. - Continue Topamax prophylaxis. - No headache today. (13) Candidiasis of mouth and esophagus: - Nystatin 5cc ac/hs - Improved. (14) Nonsustained ventricular tachycardia: 20-beat run - no symptoms and did not correlate with his shaking spells - on 01/21/20. Another on 01/23. - Continue to monitor. (15) PAF (paroxysmal atrial fibrillation): Seen incidentally during cardiology office visit in [place] on 05/27/19 per records. - No a.fib during the stay thus far. - Continue chronic warfarin. 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 Presented with fever, chest pain, +troponin with peak to 18. - Cath at that time with patent left main stent and non-obstructive CAD in other vessels. - Treated with prednisone. (17) Chronic kidney disease, stage 3a: Records from [facility] with Cr 1.6. - Cr stable as baseline. (18) DVT prophylaxis: On warfarin for paroxsymal afib: INR at 2.2 on 01/23. Admission and Anticipated Discharge Date Admission Date: January 20, 2020 Subjective Pain this morning again in the right inguinal area. Reports no fevers/chills, chest pain, shortness of breath, nausea, or vomiting. Returned to the room at approx. 10:15 am after another episode with shaking and transient loss of consciousness. Physical Exam Constitutional: WD/WN, vitals as above Eyes: EOM intact bilaterally; no conjunctival abnormality ENMT: external ear and nose normal, oropharynx normal Neck: trachea midline, no thyromegaly normal visual inspection Respiratory: normal respiratory effort, lungs clear to auscultation no respiratory distress Cardiovascular: RRR, no murmur, no edema Gastrointestinal (Abdomen): Inspection/Auscultation: abdomen normal to inspection; abdomen not distended Musculoskeletal: no cyanosis or clubbing, extremities motor strength 5/5 Skin: no rashes, warm and dry Neurologic: moves all extremities and awake Psychiatric: Orientation: alert, oriented to person and cooperative Genitourinary: + external tenderness (Right groin/inguinal area); no testes abnormality, no external erythema, no external lesion, no edema and no hernia Results & Data Results & Data ([facility]) Vital Signs (Past 12 Hours) Vital Signs Temp Pulse Pulse Resp BP BP Pulse Ox 01/25/20 10:56 76 20 162/85 H 01/25/20 07:56 36.8 C 67 18 123/70 100 01/25/20 07:20 71 01/25/20 06:58 73 16 96 01/25/20 03:10 36.5 C 70 18 110/60 99 PG Care Time/CCT Total # of Minutes Spent Total Time Spent with Patient: Total time spent is greater than 50% in coordination of care (as documented) at patient's floor/unit and/or counseling patient: Coding Level of Care Code 94756 Subseq Hosp Care Lvl 3 Diagnoses Abdominal pain, RLQ R10.31 Stroke-like symptoms R29.90 Polymyositis M33.20 Rheumatoid arthritis M06.9 Rheumatoid arthritis location: unspecified site Rheumatoid factor presence: unspecified presence History of aortic valve replacement Z95.2 Interstitial lung disease J84.9 Pneumonia J18.9 Pneumonia type: due to unspecified organism Laterality: right Lung location: unspecified part of lung CAD (coronary artery disease) I25.10 Coronary Disease-Associated Artery/Lesion type: [place] artery [place] vs. transplanted heart: [place] heart Associated angina: without angina Diabetes E11.42; Z79.4 Diabetes mellitus type: type 2 Diabetes mellitus intermediate project manager insulin use: with jail use Diabetes mellitus complication status: with neurologic complications Diabetes mellitus complication detail: with polyneuropathy Gout M10.9 Gout site: unspecified site Gout etiology: unspecified cause Chronicity: unspecified History of gastric bypass Z98.84 Chronic headache R51 Headache type: unspecified Intractability: not intractable Candidiasis of mouth and esophagus B37.81; B37.0 Nonsustained ventricular tachycardia I47.2 PAF (paroxysmal atrial fibrillation) I48.0 History of myocarditis Z86.79 Chronic kidney disease, stage 3a N18.3 DVT prophylaxis Z29.9 (1) Rheumatoid arthritis Rheumatoid arthritis location: unspecified site Rheumatoid factor presence: unspecified presence Qualified Code(s): M06.9 - Rheumatoid arthritis, unspecified (2) Pneumonia Pneumonia type: due to unspecified organism Laterality: right Lung location: unspecified part of lung Qualified Code(s): J18.9 - Pneumonia, unspecified organism (3) CAD (coronary artery disease) Coronary Disease-Associated Artery/Lesion type: [place] artery [place] vs. transplanted heart: [place] heart Associated angina: without angina Qualified Code(s): I25.10 - Atherosclerotic heart disease of [place] coronary artery without angina pectoris (4) Diabetes Diabetes mellitus type: type 2 Diabetes mellitus intermediate project manager insulin use: with intermediate project manager use Diabetes mellitus complication status: with neurologic complications Diabetes mellitus complication detail: with polyneuropathy Qualified Code(s): E11.42 - Type 2 diabetes mellitus with diabetic polyneuropathy; Z79.4 - assistant terminal manager (current) use of insulin (5) Gout Gout site: unspecified site Gout etiology: unspecified cause Chronicity: unspecified Qualified Code(s): M10.9 - Gout, unspecified (6) Chronic headache Headache type: unspecified Intractability: not intractable Qualified Code(s): R51 - Headache
--- NOTE | 2020-01-25 12:16 | Billing Data ---
Date of Service January 25, 2020 Coding Level of Care Code 33497 Prolonged Care (int'l) Time Spent (min) 35 Comment In the room from 9:45am - 10:00am & 10:15am to 10:35am.
--- NOTE | 2020-01-25 13:25 | Ultrasound Report ---
SCROTAL ULTRASOUND CLINICAL HISTORY: Possible torsion? COMPARISON STUDY: None. TECHNIQUE: Grayscale and color and duplex Doppler sonography of the scrotum was performed. FINDINGS: Right testis measures 3.2 x 2.9 x 1.8 cm and the left measures 3.5 x 2.6 x 1.9 cm. Each higinio tis is heterogeneous and mildly atrophic. Color flow within each testis is symmetric. There is no higinio ticular mass. There is no evidence for epididymitis. There are a few small left epididymal cyst. IMPRESSION: 1. No evidence for testicular torsion. No testicular mass. 2. Heterogeneous, mildly atrophic bilateral testes. 3. No evidence for epididymitis. ACT 112: Negative or not required by law. Electronically signed by: John Paul Drummond M.D. 01/25/2020 1:24 PM
--- NOTE | 2020-01-25 13:26 | Ultrasound Report ---
US abdomen ltd hernia CLINICAL HISTORY: Inguinal canal ultrasound for hernia COMPARISON STUDY: Abdominal series January 23, 2020. TECHNIQUE: Sonography of the right inguinal region with and without stress maneuvers was performed. FINDINGS: No right inguinal hernia was identified by sonography. No mass or fluid collection is ident ified. IMPRESSION: No right inguinal hernia by sonography. ACT 112: Negative or not required by law. Electronically signed by: John Paul Drummond M.D. 01/25/2020 1:24 PM
[2020-01-25] MEDS: WARFARIN SOD 5 MG TAB PO SCH (15:38)
--- NOTE | 2020-01-25 18:27 | CT Scan Report ---
CT OF THE ABDOMEN AND PELVIS WITH ORAL CONTRAST CLINICAL HISTORY: Right lower quadrant abdominal pain. COMPARISON STUDY: Abdominal series January 23, 2020. Right inguinal ultrasound performed earlier t . TECHNIQUE: Axial images of the abdomen and pelvis were obtained without IV contrast. Oral contrast wa s administered. Automated exposure control was utilized for the study. A dose lowering technique was utilized adhering to the principles of ALARA. FINDINGS: Imaged portions of the lower chest demonstrate small groundglass opacities with centrilobul ar nodules. No pneumatosis, free air or portal venous gas is present. Evaluation of the abdomen and p fabrice is suboptimal on this unenhanced examination. There are no ureteral calculi. A few small calcif ications within the left renal sinus could reflect vascular calcifications or nonobstructing calculi. There is no hydronephrosis or hydroureter. There is no significant biliary ductal dilatation status post cholecystectomy. Gastric lap band is in place. Unenhanced images of the liver, spleen, adrenal g lands and pancreas are unremarkable with exception of several parenchymal calcifications within the p ancreas. A moderate amount stool within the colon is noted. Colonic diverticulosis is noted without e vidence for acute diverticulitis. The proximal to mid small bowel is mildly dilated. The distal small bowel is decompressed. There is no contrast within the proximal to mid small bowel. No discrete soler sition point is identified. The appendix is not visualized. Right inguinal hernia repair is noted. Th ere is no evidence for recurrent hernia. No suspicious osseous lesions are noted. IMPRESSION: 1. Subtle airspace opacities within the lower lungs which favor an infectious process. 2. Mild dilatation of the proximal to mid small bowel with decompressed distal small bowel. A small b owel obstruction would be difficult to exclude however no transition point is identified to strongly suggest a bowel obstruction. 3. Moderate amount stool within the colon. 4. No recurrent right inguinal hernia. Possible small fat-containing left inguinal hernia. ACT 112: Negative or not required by law. Electronically signed by: John Paul Drummond M.D. 01/25/2020 6:26 PM
[2020-01-25] MEDS: INSULIN GLARGINE 100 UNIT/ML VIAL SC SCH (21:05)
[2020-01-25] MEDS: allopurinoL 100 MG TAB PO SCH (21:06)
[2020-01-25] MEDS: ATORVASTATIN 40 MG TAB PO SCH (21:07)
[2020-01-25] MEDS ORDERED: POLYETHYLENE (MIRALAX) 17 GM PACK PO PRN (21:53)
[2020-01-26] MEDS: ONDANSETRON INJ 2 MG/ML 2 ML VIAL IV PRN ×2 (02:57→10:30)
[2020-01-26] MEDS: MoRPHine SULFATE 2 MG/ML CARP IV PRN ×2 (03:01→10:30)
[2020-01-26] MEDS: ALBUT/IPRATROP 3MG/0.5MG NEB 3 ML VIAL INH SCH ×2 (06:58→19:15)
[2020-01-26 07:47] LABS: Hematocrit (blood only) 34.5 % (42-52); Hemoglobin 11.1 g/dL (14.0-18.0); Mean Corpuscular Hemoglobin 27.7 pg (25-34); Mean Corpuscular Hgb Conc 32.2 g/dL (32-36); Mean Platelet Volume 9.9 fL (7.4-10.4); Platelet Count 145 K/uL (130-400); Red Blood Count 4.01 M/uL (4.7-6.1)
[2020-01-26 07:59] LABS: INR 2.5 (0.9-1.1); Prothrombin Time 25.4 Seconds (9.0-12.0)
[2020-01-26 08:12] LABS: BUN Creatinine Ratio 22.7 (10-20); Calcium 8.9 mg/dl (8.5-10.1); Creatinine Clr Calc Pharmacy 47.1 ml/min; Est GFR (African American) 42.3; Est GFR (Non-African American) 36.5; Magnesium 2.5 mg/dl (1.8-2.4); Potassium 4.5 mmol/L (3.5-5.1)
[2020-01-26] MEDS: INSULIN ASPART 100 UNITS/ML 3 ML PEN SC SCH ×4 (08:12→21:09)
[2020-01-26] MEDS: FLUTICASONE/VILANTEROL 100/25MCG 14 PUFFS/INHALER INH SCH (08:13)
[2020-01-26] MEDS: TORSEMIDE 20 MG TAB PO SCH (08:14)
[2020-01-26] MEDS: ISOSORBIDE MONO EXTENDED REL 30 MG TABCR PO SCH (08:14)
[2020-01-26] MEDS: FINASTERIDE 5 MG TAB PO SCH (08:14)
[2020-01-26] MEDS: PANTOprazole 40 MG TAB PO SCH (08:14)
[2020-01-26] MEDS: AZITHROMYCIN 250 MG TAB PO SCH (08:14)
[2020-01-26] MEDS: GABAPENTIN 300 MG CAP PO SCH ×2 (08:14→21:09)
[2020-01-26] MEDS: predniSONE 10 MG TABLET PO SCH ×2 (08:14→21:09)
[2020-01-26] MEDS: NYSTATIN SUSP 500,000 U/5 ML UDC PO SCH ×4 (08:14→21:10)
[2020-01-26] MEDS: FERROUS SULFATE 325 MG TAB PO SCH ×2 (08:15→21:09)
[2020-01-26] MEDS: levETIRAcetam 500 MG TAB PO SCH ×2 (08:15→21:09)
[2020-01-26] MEDS: CEFDINIR 300 MG CAP PO SCH ×2 (08:15→21:09)
[2020-01-26] MEDS: TOPIRAMATE 50 MG TAB PO SCH ×2 (08:15→21:09)
[2020-01-26] MEDS: PSYLLIUM 58.6% POWDER PACKET PO SCH (08:15)
[2020-01-26] MEDS: ENOXAPARIN INJ 40 MG/0.4 ML SYR SQ SCH (08:15)
--- NOTE | 2020-01-26 13:45 | Hospitalist Progress Note ---
Date of Service January 26, 2020 Assessment & Plan (1) Abdominal pain, RLQ: Had such earlier this month while hospitalized at [facility]. Thought to be constipation. - Had large BM on 01/23 after fleet enema and has continued pain. Area would be in the inguinal canal area, but no hernia felt. - Ultrasound of right groin on 01/24 showed no hernia or testicular torsion. CT a/p showed a possible SBO; however, clinically this is not the case. The pain doesn't worsen with eating, he has no nausea/vomiting. - Will continue bowel regimen. - Low-dose oral pain regimen. (2) Stroke-like symptoms: Patient with recurrent spells of "shaking" arms followed by brief loss of consciousness but no prolonged post-ictal state. Spells could be complex partial seizures vs. pseudoseizures. MRI brain this admission without old or new stroke. - Negative EEG on 01/20. - Evaluated by Dr Sheikh - Topamax (patient had been taking for chronic migraines) increased to 50mg BID. - Added Keppra 500mg BID to his regimen to cover for complex partial seizures on 01/21. - Another episode on 01/24 in the context of being anxious/upset about his right inguinal pain. - Discussed with [place] neurology who feel no need for transfer and arrange for outpatient 3-day monitoring. 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 CPK wnl. CRP 0. TSH wnl. B12 wnl. Lyme negative. Aldolase - 12.5 Mild proximal muscle weakness on right but left fairly normal. This is odd given the asymmetry. Follows with Dr Shahid Christina in [place] ([phone]). On chronic prednisone 10mg BID. Had opinion from [facility] in August 2019 for polymyositis and his ILD. Rituxan x 2 doses given since that visit. Last dose - 12/24/2019. Dr Buckley from [employer] spoke with pt's primary bean viner in [place] on 01/21 -- prior CPKs have always been normal. No changes to meds recommended by his primary bean viner. - Continue prednisone 10mg BID. (4) Rheumatoid arthritis: Not active at this time. - Continue prednisone. (5) History of aortic valve replacement: 2003 - following aortic dissection. Echo at [facility] - although limited - with presumed intact valve function. - Continue warfarin. - INR goal 2-3: 2.5 last check. (6) Interstitial lung disease: Likely 2nd to RA. - Continue prednisone, DuoNebs BID, & fluticasone/vilanterol. CXR 01/20 with ?RLL pneumonia - started rocephin for such. Repeat cxr today with clearing RLL infiltrate. Uncertain if pneumonia but will finish a course of abx. Change rocephin to omnicef. Complete 5 more days of latter. Already taking chronic zithromax for prophylaxis (MAC prevention?). - Stable today. (7) Pneumonia: Question of - RLL - based on cxr 01/20. - Repeat CXR on 01/22 with resolving RLL infiltrate. - Will finish course of abx - changed Rocephin to Omnicef on 01/23. - Already on chronic azithromycin 3 days/week. (8) CAD (coronary artery disease): Having 1-2x's a week episodes of chest pain but negative heart cath x 2 in 03/2019 and 04/2019. Had chest pain earlier this stay - resolved with nitro. Despite such had negative troponins. - Continue atorvastatin. - Patient is not on ASA, ALMA-inhibitor or BB (states he cannot tolerate Beta- blockers). - Continue Imdur. (9) Diabetes: A1c was 8.1% this admission. - Very labile during the stay. - Continue lower Lantus at 35 units HS - Continue sliding scale insulin -> Much better overnight stability with Lantus 35 units HS and a tighter sliding scale. Will keep steady today. (10) Gout: No flare right now. - Continue allopurinol (11) History of gastric bypass: Noted. Iron studies c/w iron def - consider Venofer. - Continue oral Fe in meantime. - Checked B12 level - wnl. (12) Chronic headache: Migraines per patient. - Continue Topamax prophylaxis. - No headache today. (13) Candidiasis of mouth and esophagus: - Nystatin 5cc ac/hs - Improved. (14) Nonsustained ventricular tachycardia: 20-beat run - no symptoms and did not correlate with his shaking spells - on 01/21/20. Another on 01/23. - Continue to monitor. (15) PAF (paroxysmal atrial fibrillation): Seen incidentally during cardiology office visit in [place] on 05/27/19 per records. - No a.fib during the stay thus far. - Continue chronic warfarin. 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 Presented with fever, chest pain, +troponin with peak to 18. - Cath at that time with patent left main stent and non-obstructive CAD in other vessels. - Treated with prednisone. (17) Chronic kidney disease, stage 3a: Records from [facility] with Cr 1.6. - Cr stable as baseline, though a bit higher today. Monitor. (18) DVT prophylaxis: On warfarin for paroxysmal afib: INR at 2.5 on 01/25. Admission and Anticipated Discharge Date Admission Date: January 20, 2020 Subjective No further seizures today or yesterday. Pain has improved in the right groin. No other complaints. Reports no fevers/chills, chest pain, shortness of breath, abdominal pain, nausea, or vomiting. Physical Exam Constitutional: WD/WN, vitals as above Eyes: EOM intact bilaterally; no conjunctival abnormality ENMT: external ear and nose normal, oropharynx normal Neck: trachea midline, no thyromegaly normal visual inspection Respiratory: normal respiratory effort, lungs clear to auscultation no respiratory distress Cardiovascular: RRR, no murmur, no edema Gastrointestinal (Abdomen): Inspection/Auscultation: abdomen normal to inspection; abdomen not distended Musculoskeletal: no cyanosis or clubbing, extremities motor strength 5/5 Skin: no rashes, warm and dry Neurologic: moves all extremities and awake Psychiatric: Orientation: alert, oriented to person and cooperative Genitourinary: + external tenderness (Right groin/inguinal area); no testes abnormality, no external erythema, no external lesion, no edema and no hernia Results & Data Results & Data ([facility]) Vital Signs (Past 12 Hours) Vital Signs Temp Pulse Pulse Resp BP BP Pulse Ox 01/26/20 10:53 36.4 C L 72 18 136/72 96 01/26/20 07:54 36.6 C 63 20 116/66 97 01/26/20 07:13 65 01/26/20 06:58 66 16 96 01/26/20 05:02 63 01/26/20 04:00 36.4 C L 74 18 120/66 95 PG Care Time/CCT Total # of Minutes Spent Total Time Spent with Patient: Total time spent is greater than 50% in coordination of care (as documented) at patient's floor/unit and/or counseling patient: Coding Level of Care Code 52344 Subseq Hosp Care Lvl 2 Diagnoses Abdominal pain, RLQ R10.31 Stroke-like symptoms R29.90 Polymyositis M33.20 Rheumatoid arthritis M06.9 Rheumatoid arthritis location: unspecified site Rheumatoid factor presence: unspecified presence History of aortic valve replacement Z95.2 Interstitial lung disease J84.9 Pneumonia J18.9 Pneumonia type: due to unspecified organism Laterality: right Lung location: unspecified part of lung CAD (coronary artery disease) I25.10 Coronary Disease-Associated Artery/Lesion type: [place] artery [place] vs. transplanted heart: [place] heart Associated angina: without angina Diabetes E11.42; Z79.4 Diabetes mellitus type: type 2 Diabetes mellitus assisted insulin use: with long term care administrator use Diabetes mellitus complication status: with neurologic complications Diabetes mellitus complication detail: with polyneuropathy Gout M10.9 Gout site: unspecified site Gout etiology: unspecified cause Chronicity: unspecified History of gastric bypass Z98.84 Chronic headache R51 Headache type: unspecified Intractability: not intractable Candidiasis of mouth and esophagus B37.81; B37.0 Nonsustained ventricular tachycardia I47.2 PAF (paroxysmal atrial fibrillation) I48.0 History of myocarditis Z86.79 Chronic kidney disease, stage 3a N18.3 DVT prophylaxis Z29.9 (1) Rheumatoid arthritis Rheumatoid arthritis location: unspecified site Rheumatoid factor presence: unspecified presence Qualified Code(s): M06.9 - Rheumatoid arthritis, unspecified (2) Pneumonia Pneumonia type: due to unspecified organism Laterality: right Lung location: unspecified part of lung Qualified Code(s): J18.9 - Pneumonia, unspecified organism (3) CAD (coronary artery disease) Coronary Disease-Associated Artery/Lesion type: [place] artery [place] vs. t ransplanted heart: [place] heart Associated angina: without angina Qualified Code(s): I25.10 - Atherosclerotic heart disease of [place] coronary artery without angina pectoris (4) Diabetes Diabetes mellitus type: type 2 Diabetes mellitus assisted insulin use: with assisted use Diabetes mellitus complication status: with neurologic complications Diabetes mellitus complication detail: with polyneuropathy Qualified Code(s): E11.42 - Type 2 diabetes mellitus with diabetic polyneuropathy; Z79.4 - termite helper (current) use of insulin (5) Gout Gout site: unspecified site Gout etiology: unspecified cause Chronicity: unspecified Qualified Code(s): M10.9 - Gout, unspecified (6) Chronic headache Headache type: unspecified Intractability: not intractable Qualified Code(s): R51 - Headache
[2020-01-26] MEDS ORDERED: MAGNESIUM CITRATE 296 ML/BTL PO STA (14:59)
[2020-01-26] MEDS: WARFARIN SOD 7.5 MG TAB PO SCH (15:38)
[2020-01-26] MEDS: HYDROCODONE/ACETAMOPHEN 5/325MG TAB PO PRN (17:50)
[2020-01-26] MEDS: allopurinoL 100 MG TAB PO SCH (21:09)
[2020-01-26] MEDS: ATORVASTATIN 40 MG TAB PO SCH (21:09)
[2020-01-26] MEDS: INSULIN GLARGINE 100 UNIT/ML VIAL SC SCH (21:10)
[2020-01-27] MEDS: HYDROCODONE/ACETAMOPHEN 5/325MG TAB PO PRN (01:04)
[2020-01-27] MEDS: ACETAMINOPHEN 325 MG TAB PO PRN (05:27)
[2020-01-27 06:09] LABS: Hematocrit (blood only) 35.6 % (42-52); Hemoglobin 11.3 g/dL (14.0-18.0); Mean Corpuscular Hemoglobin 27.9 pg (25-34); Mean Corpuscular Hgb Conc 31.7 g/dL (32-36); Mean Corpuscular Volume 87.9 fL (80-100); Mean Platelet Volume 9.8 fL (7.4-10.4); Platelet Count 142 K/uL (130-400); RDW Coefficient of Variation 17.8 % (11.5-14.5); RDW Standard Deviation 57.5 fL (36.4-46.3); Red Blood Count 4.05 M/uL (4.7-6.1); White Blood Count 6.97 K/uL (4.8-10.8)
[2020-01-27 06:19] LABS: INR 2.2 (0.9-1.1); Prothrombin Time 22.6 Seconds (9.0-12.0)
[2020-01-27 06:38] LABS: BUN Creatinine Ratio 21.8 (10-20); Calcium 8.8 mg/dl (8.5-10.1); Est GFR (African American) 39.1; Est GFR (Non-African American) 33.8; Magnesium 2.9 mg/dl (1.8-2.4); Potassium 4.4 mmol/L (3.5-5.1)
[2020-01-27] MEDS: ALBUT/IPRATROP 3MG/0.5MG NEB 3 ML VIAL INH SCH ×2 (07:11→19:11)
[2020-01-27] MEDS: ENOXAPARIN INJ 40 MG/0.4 ML SYR SQ SCH (08:19)
[2020-01-27] MEDS: PANTOprazole 40 MG TAB PO SCH (08:20)
[2020-01-27] MEDS: FINASTERIDE 5 MG TAB PO SCH (08:20)
[2020-01-27] MEDS: NYSTATIN SUSP 500,000 U/5 ML UDC PO SCH ×4 (08:20→21:47)
[2020-01-27] MEDS: GABAPENTIN 300 MG CAP PO SCH ×2 (08:20→21:48)
[2020-01-27] MEDS: ISOSORBIDE MONO EXTENDED REL 30 MG TABCR PO SCH (08:20)
[2020-01-27] MEDS: TOPIRAMATE 50 MG TAB PO SCH ×2 (08:21→21:50)
[2020-01-27] MEDS: predniSONE 10 MG TABLET PO SCH ×2 (08:21→21:50)
[2020-01-27] MEDS: TORSEMIDE 20 MG TAB PO SCH (08:21)
[2020-01-27] MEDS: CEFDINIR 300 MG CAP PO SCH ×2 (08:21→21:49)
[2020-01-27] MEDS: levETIRAcetam 500 MG TAB PO SCH ×2 (08:21→21:44)
[2020-01-27] MEDS: FERROUS SULFATE 325 MG TAB PO SCH ×2 (08:22→21:44)
[2020-01-27] MEDS: FLUTICASONE/VILANTEROL 100/25MCG 14 PUFFS/INHALER INH SCH (08:22)
[2020-01-27] MEDS: PSYLLIUM 58.6% POWDER PACKET PO SCH (08:22)
[2020-01-27] MEDS: INSULIN ASPART 100 UNITS/ML 3 ML PEN SC SCH ×4 (08:28→21:49)
[2020-01-27] MEDS: WARFARIN SOD 5 MG TAB PO SCH (16:14)
[2020-01-27] MEDS: INSULIN GLARGINE 100 UNIT/ML VIAL SC SCH (21:45)
[2020-01-27] MEDS: ATORVASTATIN 40 MG TAB PO SCH (21:46)
[2020-01-27] MEDS: allopurinoL 100 MG TAB PO SCH (21:51)
--- NOTE | 2020-01-27 23:24 | Hospitalist Progress Note ---
Date of Service January 27, 2020 Assessment & Plan (1) Abdominal pain, RLQ: Had such earlier this month while hospitalized at [facility]. Thought to be constipation. - Had large BM on 01/23 after fleet enema and has continued pain. Area would be in the inguinal canal area, but no hernia felt. - Ultrasound of right groin on 01/24 showed no hernia or testicular torsion. CT a/p showed a possible SBO; however, clinically this is not the case. The pain doesn't worsen with eating, he has no nausea/vomiting. - Will continue bowel regimen. - Low-dose oral pain regimen. (2) Stroke-like symptoms: Patient with recurrent spells of "shaking" arms followed by brief loss of consciousness but no prolonged post-ictal state. Spells could be complex partial seizures vs. pseudoseizures. MRI brain this admission without old or new stroke. - Negative EEG on 01/20. - Evaluated by Dr Sheikh - Topamax (patient had been taking for chronic migraines) increased to 50mg BID. - Added Keppra 500mg BID to his regimen to cover for complex partial seizures on 01/21. - Another episode on 01/24 in the context of being anxious/upset about his right inguinal pain. - Discussed with [place] neurology who feel no need for transfer and arrange for outpatient 3-day monitoring. Awaiting for placement. 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 CPK wnl. CRP 0. TSH wnl. B12 wnl. Lyme negative. Aldolase - 12.5 Mild proximal muscle weakness on right but left fairly normal. This is odd given the asymmetry. Follows with Dr Shahid Christina in [place] ([phone]). On chronic prednisone 10mg BID. Had opinion from [facility] in August 2019 for polymyositis and his ILD. Rituxan x 2 doses given since that visit. Last dose - 12/24/2019. Dr Buckley from [facility] spoke with pt's primary shopfitter in [place] on 01/21 -- prior CPKs have always been normal. No changes to meds recommended by his primary shopfitter. - Continue prednisone 10mg BID. (4) Rheumatoid arthritis: Not active at this time. - Continue prednisone. (5) History of aortic valve replacement: 2003 - following aortic dissection. Echo at [facility] - although limited - with presumed intact valve function. - Continue warfarin. - INR goal 2-3: 2.5 last check. (6) Interstitial lung disease: Likely 2nd to RA. - Continue prednisone, DuoNebs BID, & fluticasone/vilanterol. CXR 01/20 with ?RLL pneumonia - started rocephin for such. Repeat cxr today with clearing RLL infiltrate. Uncertain if pneumonia but will finish a course of abx. Change rocephin to omnicef. Complete 5 more days of latter. Already taking chronic zithromax for prophylaxis (MAC prevention?). - Stable today. (7) Pneumonia: Question of - RLL - based on cxr 01/20. - Repeat CXR on 01/22 with resolving RLL infiltrate. - Will finish course of abx - changed Rocephin to Omnicef on 01/23. - Already on chronic azithromycin 3 days/week. (8) CAD (coronary artery disease): Having 1-2x's a week episodes of chest pain but negative heart cath x 2 in 03/2019 and 04/2019. Had chest pain earlier this stay - resolved with nitro. Despite such had negative troponins. - Continue atorvastatin. - Patient is not on ASA, ALMA-inhibitor or BB (states he cannot tolerate Beta- blockers). - Continue Imdur. (9) Diabetes: A1c was 8.1% this admission. - Very labile during the stay. - Continue lower Lantus at 35 units HS - Continue sliding scale insulin -> Much better overnight stability with Lantus 35 units HS and a tighter sliding scale. Will keep steady today. (10) Gout: No flare right now. - Continue allopurinol (11) History of gastric bypass: Noted. Iron studies c/w iron def - consider Venofer. - Continue oral Fe in meantime. - Checked B12 level - wnl. (12) Chronic headache: Migraines per patient. - Continue Topamax prophylaxis. - No headache today. (13) Candidiasis of mouth and esophagus: - Nystatin 5cc ac/hs - Improved. (14) Nonsustained ventricular tachycardia: 20-beat run - no symptoms and did not correlate with his shaking spells - on 01/21/20. Another on 01/23. - Continue to monitor. (15) PAF (paroxysmal atrial fibrillation): Seen incidentally during cardiology office visit in [place] on 05/27/19 per records. - No a.fib during the stay thus far. - Continue chronic warfarin. 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 Presented with fever, chest pain, +troponin with peak to 18. - Cath at that time with patent left main stent and non-obstructive CAD in other vessels. - Treated with prednisone. (17) Chronic kidney disease, stage 3a: Records from [facility] with Cr 1.6. - Cr stable as baseline, though a bit higher today. Monitor. (18) DVT prophylaxis: On warfarin for paroxysmal afib: INR at 2.5 on 01/25. Admission and Anticipated Discharge Date Admission Date: January 20, 2020 Subjective Patient reports abscence spells today, but denies any other symptoms. Review of Systems Review of Systems: All systems reviewed & are unremarkable except as noted in HPI & below Physical Exam Physical Exam: Constitutional: WD/WN, vitals as above Eyes: EOM intact bilaterally; no conjunctival abnormality ENMT: external ear and nose normal, oropharynx normal Neck: trachea midline, no thyromegaly normal visual inspection Respiratory: normal respiratory effort, lungs clear to auscultation no respiratory distress Cardiovascular: RRR, no murmur, no edema Gastrointestinal (Abdomen): Inspection/Auscultation: abdomen normal to inspection; abdomen not distended Musculoskeletal: no cyanosis or clubbing, extremities motor strength 5/5 Skin: no rashes, warm and dry Neurologic: moves all extremities and awake Psychiatric: Orientation: alert, oriented to person and cooperative Genitourinary: + external tenderness (Right groin/inguinal area); no testes abnormality, no external erythema, no external lesion, no edema and no hernia Results & Data Results & Data ([facility]) Vital Signs (Past 12 Hours) Vital Signs Temp Pulse Pulse Resp BP BP Pulse Ox 01/27/20 21:30 76 18 139/82 96 01/27/20 19:13 68 16 95 01/27/20 18:59 36.5 C 68 18 126/70 96 01/27/20 15:49 87 01/27/20 15:24 36.9 C 72 18 122/75 93 PG Care Time/CCT Total # of Minutes Spent Total Time Spent with Patient: Total time spent is greater than 50% in coor dination of care (as documented) at patient's floor/unit and/or counseling patient: Coding Level of Care Code 65972 Subseq Hosp Care Lvl 2 Diagnoses Abdominal pain, RLQ R10.31 Stroke-like symptoms R29.90 Polymyositis M33.20 Rheumatoid arthritis M06.9 Rheumatoid arthritis location: unspecified site Rheumatoid factor presence: unspecified presence History of aortic valve replacement Z95.2 Interstitial lung disease J84.9 Pneumonia J18.9 Laterality: right Lung location: unspecified part of lung Pneumonia type: due to unspecified organism CAD (coronary artery disease) I25.10 Associated angina: without angina Coronary Disease-Associated Artery/Lesion type: [place] artery [place] vs. transplanted heart: [place] heart Diabetes E11.42; Z79.4 Diabetes mellitus complication detail: with polyneuropathy Diabetes mellitus complication status: with neurologic complications Diabetes mellitus clerical adjudicator insulin use: with clerical adjudicator use Diabetes mellitus type: type 2 Gout M10.9 Chronicity: unspecified Gout etiology: unspecified cause Gout site: unspecified site History of gastric bypass Z98.84 Chronic headache R51 Headache type: unspecified Intractability: not intractable Candidiasis of mouth and esophagus B37.81; B37.0 Nonsustained ventricular tachycardia I47.2 PAF (paroxysmal atrial fibrillation) I48.0 History of myocarditis Z86.79 Chronic kidney disease, stage 3a N18.3 DVT prophylaxis Z29.9 Time Spent (min) 25 Comment first encounter (1) Rheumatoid arthritis Rheumatoid arthritis location: unspecified site Rheumatoid factor presence: unspecified presence Qualified Code(s): M06.9 - Rheumatoid arthritis, unspecified (2) Diabetes Diabetes mellitus complication detail: with polyneuropathy Diabetes mellitus complication status: with neurologic complications Diabetes mellitus clerical adjudicator insulin use: with clerical adjudicator use Diabetes mellitus type: type 2 Qualified Code(s): E11.42 - Type 2 diabetes mellitus with diabetic polyneuropathy; Z79.4 - USP (current) use of insulin (3) Gout Chronicity: unspecified Gout etiology: unspecified cause Gout site: unspecified site Qualified Code(s): M10.9 - Gout, unspecified (4) CAD (coronary artery disease) Associated angina: without angina Coronary Disease-Associated Artery/Lesion type: [place] artery [place] vs. transplanted heart: [place] heart Qualified Code(s): I25.10 - Atherosclerotic heart disease of [place] coronary artery without angina pectoris (5) Chronic headache Headache type: unspecified Intractability: not intractable Qualified Code(s): R51 - Headache (6) Pneumonia Laterality: right Lung location: unspecified part of lung Pneumonia type: due to unspecified organism Qualified Code(s): J18.9 - Pneumonia, unspecified organism
[2020-01-28] MEDS: ACETAMINOPHEN 325 MG TAB PO PRN ×2 (03:32→13:19)
[2020-01-28] MEDS: ALBUT/IPRATROP 3MG/0.5MG NEB 3 ML VIAL INH SCH ×2 (07:06→19:32)
[2020-01-28 07:12] LABS: Est GFR (African American) 40.1; Est GFR (Non-African American) 34.6
[2020-01-28] MEDS: ISOSORBIDE MONO EXTENDED REL 30 MG TABCR PO SCH (08:26)
[2020-01-28] MEDS: AZITHROMYCIN 250 MG TAB PO SCH (08:27)
[2020-01-28] MEDS: FINASTERIDE 5 MG TAB PO SCH (08:27)
[2020-01-28] MEDS: PSYLLIUM 58.6% POWDER PACKET PO SCH (08:27)
[2020-01-28] MEDS: PANTOprazole 40 MG TAB PO SCH (08:27)
[2020-01-28] MEDS: TOPIRAMATE 50 MG TAB PO SCH ×2 (08:27→21:14)
[2020-01-28] MEDS: ENOXAPARIN INJ 40 MG/0.4 ML SYR SQ SCH (08:28)
[2020-01-28] MEDS: predniSONE 10 MG TABLET PO SCH ×2 (08:28→21:14)
[2020-01-28] MEDS: FERROUS SULFATE 325 MG TAB PO SCH ×2 (08:28→21:15)
[2020-01-28] MEDS: GABAPENTIN 300 MG CAP PO SCH ×2 (08:28→21:14)
[2020-01-28] MEDS: NYSTATIN SUSP 500,000 U/5 ML UDC PO SCH ×4 (08:29→21:13)
[2020-01-28] MEDS: levETIRAcetam 500 MG TAB PO SCH ×2 (08:29→21:14)
[2020-01-28] MEDS: FLUTICASONE/VILANTEROL 100/25MCG 14 PUFFS/INHALER INH SCH (08:29)
[2020-01-28] MEDS: INSULIN ASPART 100 UNITS/ML 3 ML PEN SC SCH ×4 (08:31→21:16)
[2020-01-28] MEDS: WARFARIN SOD 5 MG TAB PO SCH (17:05)
[2020-01-28] MEDS: HYDROCODONE/ACETAMOPHEN 5/325MG TAB PO PRN (19:48)
[2020-01-28] MEDS: ATORVASTATIN 40 MG TAB PO SCH (21:14)
[2020-01-28] MEDS: INSULIN GLARGINE 100 UNIT/ML VIAL SC SCH (21:15)
[2020-01-28] MEDS: allopurinoL 100 MG TAB PO SCH (21:16)
--- NOTE | 2020-01-28 21:38 | Hospitalist Progress Note ---
Date of Service January 28, 2020 Assessment & Plan (1) Abdominal pain, RLQ: Had such earlier this month while hospitalized at [facility]. Thought to be constipation. - Had large BM on 01/23 after fleet enema and has continued pain. Area would be in the inguinal canal area, but no hernia felt. - Ultrasound of right groin on 01/24 showed no hernia or testicular torsion. CT a/p showed a possible SBO; however, clinically this is not the case. The pain doesn't worsen with eating, he has no nausea/vomiting. - Will continue bowel regimen. - Low-dose oral pain regimen. Pending placement (2) Stroke-like symptoms: Patient with recurrent spells of "shaking" arms followed by brief loss of consciousness but no prolonged post-ictal state. Spells could be complex partial seizures vs. pseudoseizures. MRI brain this admission without old or new stroke. - Negative EEG on 01/20. - Evaluated by Dr Kori Fonseca Topamax (patient had been taking for chronic migraines) increased to 50mg BID. - Added Keppra 500mg BID to his regimen to cover for complex partial seizures on 01/21. - Another episode on 01/24 in the context of being anxious/upset about his right inguinal pain. - Discussed with [place] neurology who feel no need for transfer and arrange for outpatient 3-day monitoring. Awaiting for placement. 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 CPK wnl. CRP 0. TSH wnl. B12 wnl. Lyme negative. Aldolase - 12.5 Mild proximal muscle weakness on right but left fairly normal. This is odd given the asymmetry. Follows with Dr Shahid Christina in [place] ([phone]). On chronic prednisone 10mg BID. Had opinion from [facility] in August 2019 for polymyositis and his ILD. Rituxan x 2 doses given since that visit. Last dose - 12/24/2019. Dr Buckley from [facility] spoke with pt's primary engineer process in [place] on 01/21 -- prior CPKs have always been normal. No changes to meds recommended by his primary engineer process. - Continue prednisone 10mg BID. (4) Rheumatoid arthritis: Not active at this time. - Continue prednisone. (5) History of aortic valve replacement: 2003 - following aortic dissection. Echo at [facility] - although limited - with presumed intact valve function. - Continue warfarin. - INR goal 2-3: 2.5 last check. (6) Interstitial lung disease: Likely 2nd to RA. - Continue prednisone, DuoNebs BID, & fluticasone/vilanterol. CXR 01/20 with ?RLL pneumonia - started rocephin for such. Repeat cxr today with clearing RLL infiltrate. Uncertain if pneumonia but will finish a course of abx. Change rocephin to omnicef. Complete 5 more days of latter. Already taking chronic zithromax for prophylaxis (MAC prevention?). - Stable today. (7) Pneumonia: Question of - RLL - based on cxr 01/20. - Repeat CXR on 01/22 with resolving RLL infiltrate. - Will finish course of abx - changed Rocephin to Omnicef on 01/23. - Already on chronic azithromycin 3 days/week. (8) CAD (coronary artery disease): Having 1-2x's a week episodes of chest pain but negative heart cath x 2 in 03/2019 and 04/2019. Had chest pain earlier this stay - resolved with nitro. Despite such had negative troponins. - Continue atorvastatin. - Patient is not on ASA, ALMA-inhibitor or BB (states he cannot tolerate Beta- blockers). - Continue Imdur. (9) Diabetes: A1c was 8.1% this admission. - Very labile during the stay. - Continue lower Lantus at 35 units HS - Continue sliding scale insulin -> Much better overnight stability with Lantus 35 units HS and a tighter sliding scale. Will keep steady today. (10) Gout: No flare right now. - Continue allopurinol (11) History of gastric bypass: Noted. Iron studies c/w iron def - consider Venofer. - Continue oral Fe in meantime. - Checked B12 level - wnl. (12) Chronic headache: Migraines per patient. - Continue Topamax prophylaxis. - No headache today. (13) Candidiasis of mouth and esophagus: - Nystatin 5cc ac/hs - Improved. (14) Nonsustained ventricular tachycardia: 20-beat run - no symptoms and did not correlate with his shaking spells - on 01/21/20. Another on 01/23. - Continue to monitor. (15) PAF (paroxysmal atrial fibrillation): Seen incidentally during cardiology office visit in [place] on 05/27/19 per records. - No a.fib during the stay thus far. - Continue chronic warfarin. 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 Presented with fever, chest pain, +troponin with peak to 18. - Cath at that time with patent left main stent and non-obstructive CAD in other vessels. - Treated with prednisone. (17) Chronic kidney disease, stage 3a: Records from [facility] with Cr 1.6. - Cr stable as baseline, though a bit higher today. Monitor. (18) DVT prophylaxis: On warfarin for paroxysmal afib: INR at 2.5 on 01/25. Admission and Anticipated Discharge Date Admission Date: January 20, 2020 Subjective Patient reports having an episode where his bilateral arms were shaking. He recalls the whole event however and denies ever being post ictal. Review of Systems Review of Systems: All systems reviewed & are unremarkable except as noted in HPI & below Physical Exam Physical Exam: Constitutional: WD/WN, vitals as above Eyes: EOM intact bilaterally; no conjunctival abnormality ENMT: external ear and nose normal, oropharynx normal Neck: trachea midline, no thyromegaly normal visual inspection Respiratory: normal respiratory effort, lungs clear to auscultation no respiratory distress Cardiovascular: RRR, no murmur, no edema Gastrointestinal (Abdomen): Inspection/Auscultation: abdomen normal to inspection; abdomen not distended Musculoskeletal: no cyanosis or clubbing, extremities motor strength 5/5 Skin: no rashes, warm and dry Neurologic: moves all extremities and awake Psychiatric: Orientation: alert, oriented to person and cooperative Genitourinary: + external tenderness (Right groin/inguinal area); no testes abnormality, no external erythema, no external lesion, no edema and no hernia Results & Data Results & Data ([facility]) Vital Signs (Past 12 Hours) Vital Signs Temp Pulse Pulse Resp BP BP Pulse Ox 01/28/20 19:32 58 L 16 97 01/28/20 19:27 36.6 C 91 H 16 122/78 94 01/28/20 15:50 36.5 C 62 18 118/77 96 01/28/20 15:41 76 01/28/20 12:00 36.6 C 71 18 99/62 L 95 PG Care Time/CCT Total # of Minutes Spent Total Time Spent with Patient: Total time spent is greater than 50% in coordination of care (as documented) at patient's floor/unit and/or counseling patient: Coding Level of Care Code 27166 Subseq Hosp Care Lvl 2 Diagnoses Abdominal pain, RLQ R10.31 Stroke-like symptoms R29.90 Polymyositis M33.20 Rheumatoid arthritis M06.9 Rheumatoid arthritis location: unspecified site Rheumatoid factor presence: unspecified presence History of aortic valve replacement Z95.2 Interstitial lung disease J84.9 Pneumonia J18.9 Laterality: right Lung location: unspecified part of lung Pneumonia type: due to unspecified organism CAD (coronary artery disease) I25.10 Associated angina: without angina Coronary Disease-Associated Artery/Lesion type: [place] artery [place] vs. transplanted heart: [place] heart Diabetes E11.42; Z79.4 Diabetes mellitus complication detail: with polyneuropathy Diabetes mellitus complication status: with neurologic complications Diabetes mellitus keno terminal operator insulin use: with fpc use Diabetes mellitus type: type 2 Gout M10.9 Chronicity: unspecified Gout etiology: unspecified cause Gout site: unspecified site History of gastric bypass Z98.84 Chronic headache R51 Headache type: unspecified Intractability: not intractable Candidiasis of mouth and esophagus B37.81; B37.0 Nonsustained ventricular tachycardia I47.2 PAF (paroxysmal atrial fibrillation) I48.0 History of myocarditis Z86.79 Chronic kidney disease, stage 3a N18.3 DVT prophylaxis Z29.9 Time Spent (min) 25 (1) Rheumatoid arthritis Rheumatoid arthritis location: unspecified site Rheumatoid factor presence: unspecified presence Qualified Code(s): M06.9 - Rheumatoid arthritis, unspecified (2) Diabetes Diabetes mellitus complication detail: with polyneuropathy Diabetes mellitus complication status: with neurologic complications Diabetes mellitus fpc insulin use: with fpc use Diabetes mellitus type: type 2 Qualified Cod e(s): E11.42 - Type 2 diabetes mellitus with diabetic polyneuropathy; Z79.4 - termite control service representative (current) use of insulin (3) Gout Chronicity: unspecified Gout etiology: unspecified cause Gout site: unspecified site Qualified Code(s): M10.9 - Gout, unspecified (4) CAD (coronary artery disease) Associated angina: without angina Coronary Disease-Associated Artery/Lesion type: [place] artery [place] vs. transplanted heart: [place] heart Qualified Code(s): I25.10 - Atherosclerotic heart disease of [place] coronary artery without angina pectoris (5) Chronic headache Headache type: unspecified Intractability: not intractable Qualified Code(s): R51 - Headache (6) Pneumonia Laterality: right Lung location: unspecified part of lung Pneumonia type: due to unspecified organism Qualified Code(s): J18.9 - Pneumonia, unspecified organism
[2020-01-28] MEDS: ONDANSETRON INJ 2 MG/ML 2 ML VIAL IV PRN (23:39)
[2020-01-29] MEDS: HYDROCODONE/ACETAMOPHEN 5/325MG TAB PO PRN ×3 (02:25→17:08)
[2020-01-29] MEDS: ALBUT/IPRATROP 3MG/0.5MG NEB 3 ML VIAL INH SCH ×2 (07:02→19:14)
[2020-01-29] MEDS: NYSTATIN SUSP 500,000 U/5 ML UDC PO SCH ×4 (08:22→20:43)
[2020-01-29] MEDS: TOPIRAMATE 50 MG TAB PO SCH ×2 (08:22→20:42)
[2020-01-29] MEDS: PANTOprazole 40 MG TAB PO SCH (08:22)
[2020-01-29] MEDS: ISOSORBIDE MONO EXTENDED REL 30 MG TABCR PO SCH (08:22)
[2020-01-29] MEDS: predniSONE 10 MG TABLET PO SCH ×2 (08:22→20:44)
[2020-01-29] MEDS: FINASTERIDE 5 MG TAB PO SCH (08:22)
[2020-01-29] MEDS: ENOXAPARIN INJ 40 MG/0.4 ML SYR SQ SCH (08:23)
[2020-01-29] MEDS: FLUTICASONE/VILANTEROL 100/25MCG 14 PUFFS/INHALER INH SCH (08:23)
[2020-01-29] MEDS: GABAPENTIN 300 MG CAP PO SCH ×2 (08:23→20:43)
[2020-01-29] MEDS: FERROUS SULFATE 325 MG TAB PO SCH ×2 (08:23→20:42)
[2020-01-29] MEDS: levETIRAcetam 500 MG TAB PO SCH ×2 (08:23→20:42)
[2020-01-29] MEDS: PSYLLIUM 58.6% POWDER PACKET PO SCH (08:27)
[2020-01-29] MEDS: INSULIN ASPART 100 UNITS/ML 3 ML PEN SC SCH ×4 (08:29→20:38)
[2020-01-29 11:31] LABS: Eosinophils # (auto) 0.01 K/uL (0-0.5); Eosinophils % (auto) 0.1 %; Hematocrit (blood only) 36.9 % (42-52); Hemoglobin 11.9 g/dL (14.0-18.0); Immature Granulocytes # (auto) 0.28 K/uL (0.00-0.02); Immature Granulocytes % (auto) 3.8 %; Lymphocytes # (auto) 0.35 K/uL (1.2-3.4); Lymphocytes % (auto) 4.8 %; Mean Corpuscular Hemoglobin 27.8 pg (25-34); Mean Corpuscular Hgb Conc 32.2 g/dL (32-36); Mean Corpuscular Volume 86.2 fL (80-100); Mean Platelet Volume 9.3 fL (7.4-10.4); Monocytes # (auto) 0.29 K/uL (0.11-0.59); Monocytes % (auto) 3.9 %; Neutrophils # (auto) 6.43 K/uL (1.4-6.5); Neutrophils % (auto) 87.4 %; Platelet Count 143 K/uL (130-400); RDW Coefficient of Variation 18.2 % (11.5-14.5); RDW Standard Deviation 56.5 fL (36.4-46.3); Red Blood Count 4.28 M/uL (4.7-6.1); White Blood Count 7.36 K/uL (4.8-10.8)
[2020-01-29 11:49] LABS: BUN Creatinine Ratio 24.6 (10-20); Calcium 9.2 mg/dl (8.5-10.1); Creatinine Clr Calc Pharmacy 50.8 ml/min; Est GFR (African American) 47.7; Est GFR (Non-African American) 41.2; Potassium 3.9 mmol/L (3.5-5.1)
[2020-01-29] MEDS: ONDANSETRON INJ 2 MG/ML 2 ML VIAL IV PRN (12:56)
--- NOTE | 2020-01-29 15:23 | Ultrasound Report ---
ULTRASOUND KIDNEYS AND BLADDER CLINICAL HISTORY: Dysuria. COMPARISON STUDY: Abdominal CT dated 01/25/2020. TECHNIQUE: Real-time, grayscale, and color flow sonography of the kidneys and bladder is performed. I mages are reviewed in the transverse and longitudinal planes. FINDINGS: Kidneys: The kidneys demonstrate cortical atrophy and are normal in echotexture. Foci of cortical sca rring are noted in the right kidney. The right kidney measures 11.1 cm and the left kidney measures 1 1.5 cm. There is no hydronephrosis. No shadowing renal calculi are identified. Small bilateral renal cysts measure up to 1.7 cm. There is no sonographic evidence of contour deforming renal mass lesion. No perinephric fluid is identified. Bladder: The bladder wall appears thickened and trabeculated suggesting chronic outlet obstruction. B ilateral ureteral jets were seen. IMPRESSION: 1. The kidneys demonstrate cortical atrophy and are without hydronephrosis. 2. The bladder wall appears thickened and trabeculated suggesting chronic outlet obstruction. ACT 112: Negative or not required by law. Electronically signed by: Tan Burleson M.D. 01/29/2020 3:22 PM
--- NOTE | 2020-01-29 15:30 | Ultrasound Report ---
DOPPLER ULTRASOUND OF THE MESENTERIC VASCULATURE CLINICAL HISTORY: Generalized abdominal pain. COMPARISON STUDY: Abdominal CT dated 01/25/2020. FINDINGS: Real-time, grayscale, and color Doppler sonography of the mesenteric vasculature is perform ed. The examination is significantly degraded by large body habitus. The visualized portions of the c eliac trunk and superior mesenteric artery show no evidence of elevated velocities. Velocities within imaged portions of the superior mesenteric artery measure up to 68 cm/s, and velocities within image d portions of the celiac artery measure up to 75 cm/s. The hepatic artery is patent with velocities m easuring up to 24 cm/s. Velocities in the splenic artery measure up to 97 cm/s. IMPRESSION: Normal velocities are shown within the visualized portions of the mesenteric vessels. The se were suboptimally assessed due to large body habitus. Electronically signed by: Tan Burleson M.D. 01/29/2020 3:29 PM
[2020-01-29] MEDS: WARFARIN SOD 7.5 MG TAB PO SCH (17:08)
[2020-01-29] MEDS: INSULIN GLARGINE 100 UNIT/ML VIAL SC SCH (20:40)
[2020-01-29] MEDS: ATORVASTATIN 40 MG TAB PO SCH (20:43)
[2020-01-29] MEDS: allopurinoL 100 MG TAB PO SCH (20:44)
--- NOTE | 2020-01-29 22:43 | Hospitalist Progress Note ---
Date of Service January 29, 2020 Assessment & Plan (1) Abdominal pain, RLQ: Had such earlier this month while hospitalized at [facility]. Thought to be constipation. - Had large BM on 01/23 after fleet enema and has continued pain. Area would be in the inguinal canal area, but no hernia felt. - Ultrasound of right groin on 01/24 showed no hernia or testicular torsion. CT a/p showed a possible SBO; however, clinically this is not the case. The pain doesn't worsen with eating, he has no nausea/vomiting. - Will continue bowel regimen. - Low-dose oral pain regimen. Pending placement Had U/S of kidney bladder which was negative, he did have signs of chronic outlet obstruction, but this does not appear to be causing his symptoms. U/S for mesenteric ischemia is also negative. Will order x ray in AM. (2) Stroke-like symptoms: Patient with recurrent spells of "shaking" arms followed by brief loss of consciousness but no prolonged post-ictal state. Spells could be complex partial seizures vs. pseudoseizures. MRI brain this admission without old or new stroke. - Negative EEG on 01/20. - Evaluated by Dr Sheikh - Mikox (patient had been taking for chronic migraines) increased to 50mg BID. - Added Keppra 500mg BID to his regimen to cover for complex partial seizures on 01/21. - Another episode on 01/24 in the context of being anxious/upset about his right inguinal pain. - Discussed with [place] neurology who feel no need for transfer and arrange for outpatient 3-day monitoring. Awaiting for placement. 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 CPK wnl. CRP 0. TSH wnl. B12 wnl. Lyme negative. Aldolase - 12.5 Mild proximal muscle weakness on right but left fairly normal. This is odd given the asymmetry. Follows with Dr Shahid Christina in [place] ([phone]). On chronic prednisone 10mg BID. Had opinion from [facility] in August 2019 for polymyositis and his ILD. Rituxan x 2 doses given since that visit. Last dose - 12/24/2019. Dr Buckley from [employer] spoke with pt's primary glass novelty maker in [place] on 01/21 -- prior CPKs have always been normal. No changes to meds recommended by his primary glass novelty maker. - Continue prednisone 10mg BID. (4) Rheumatoid arthritis: Not active at this time. - Continue prednisone. (5) History of aortic valve replacement: 2003 - following aortic dissection. Echo at [facility] - although limited - with presumed intact valve function. - Continue warfarin. - INR goal 2-3: 2.5 last check. (6) Interstitial lung disease: Likely 2nd to RA. - Continue prednisone, DuoNebs BID, & fluticasone/vilanterol. CXR 01/20 with ?RLL pneumonia - started rocephin for such. Repeat cxr today with clearing RLL infiltrate. Uncertain if pneumonia but will finish a course of abx. Change rocephin to omnicef. Complete 5 more days of latter. Already taking chronic zithromax for prophylaxis (MAC prevention?). - Stable today. (7) Pneumonia: Question of - RLL - based on cxr 01/20. - Repeat CXR on 01/22 with resolving RLL infiltrate. - Will finish course of abx - changed Rocephin to Omnicef on 01/23. - Already on chronic azithromycin 3 days/week. (8) CAD (coronary artery disease): Having 1-2x's a week episodes of chest pain but negative heart cath x 2 in 03/2019 and 04/2019. Had chest pain earlier this stay - resolved with nitro. Despite such had negative troponins. - Continue atorvastatin. - Patient is not on ASA, ALMA-inhibitor or BB (states he cannot tolerate Beta- blockers). - Continue Imdur. (9) Diabetes: A1c was 8.1% this admission. - Very labile during the stay. - Continue lower Lantus at 35 units HS - Continue sliding scale insulin -> Much better overnight stability with Lantus 35 units HS and a tighter sliding scale. Will keep steady today. (10) Gout: No flare right now. - Continue allopurinol (11) History of gastric bypass: Noted. Iron studies c/w iron def - consider Venofer. - Continue oral Fe in meantime. - Checked B12 level - wnl. (12) Chronic headache: Migraines per patient. - Continue Topamax prophylaxis. - No headache today. (13) Candidiasis of mouth and esophagus: - Nystatin 5cc ac/hs - Improved. (14) Nonsustained ventricular tachycardia: 20-beat run - no symptoms and did not correlate with his shaking spells - on 01/21/20. Another on 01/23. - Continue to monitor. (15) PAF (paroxysmal atrial fibrillation): Seen incidentally during cardiology office visit in [place] on 05/27/19 per records. - No a.fib during the stay thus far. - Continue chronic warfarin. 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 Presented with fever, chest pain, +troponin with peak to 18. - Cath at that time with patent left main stent and non-obstructive CAD in other vessels. - Treated with prednisone. (17) Chronic kidney disease, stage 3a: Records from [facility] with Cr 1.6. - Cr stable as baseline, though a bit higher today. Monitor. (18) DVT prophylaxis: On warfarin for paroxysmal afib: INR at 2.5 on 01/25. Admission and Anticipated Discharge Date Admission Date: January 20, 2020 Subjective 74 yo male reports feeling well. He continues to have right groin pain. Review of Systems Review of Systems: All systems reviewed & are unremarkable except as noted in HPI & below Physical Exam Physical Exam: Constitutional: WD/WN, vitals as above Eyes: EOM intact bilaterally; no conjunctival abnormality ENMT: external ear and nose normal, oropharynx normal Neck: trachea midline, no thyromegaly normal visual inspection Respiratory: normal respiratory effort, lungs clear to auscultation no respiratory distress Cardiovascular: RRR, no murmur, no edema Gastrointestinal (Abdomen): Inspection/Auscultation: abdomen normal to inspection; abdomen not distended Musculoskeletal: no cyanosis or clubbing, extremities motor strength 5/5 Skin: no rashes, warm and dry Neurologic: moves all extremities and awake Psychiatric: Orientation: alert, oriented to person and cooperative Genitourinary: + external tenderness (Right groin/inguinal area); no testes abnormality, no external erythema, no external lesion, no edema and no hernia Results & Data Results & Data ([facility]) Vital Signs (Past 12 Hours) Vital Signs Temp Pulse Pulse Resp BP Pulse Ox 01/29/20 19:24 36.6 C 64 20 107/62 96 01/29/20 19:16 66 16 96 01/29/20 16:30 74 01/29/20 15:00 36.4 C L 62 20 139/76 98 01/29/20 12:00 36.7 C 73 20 118/72 97 PG Care Time/CCT Total # of Minutes Spent Total Time Spent with Patient: Total time spent is greater than 50% in coordination of care (as documented) at patient's floor/unit and/or counseling patient: Coding Level of Care Code 30188 Subseq Hosp Care Lvl 2 Diagnoses Abdominal pain, RLQ R10.31 Stroke-like symptoms R29.90 Polymyositis M33.20 Rheumatoid arthritis M06.9 Rheumatoid arthritis location: unspecified site Rheumatoid factor presence: unspecified presence History of aortic valve replacement Z95.2 Interstitial lung disease J84.9 Pneumonia J18.9 Laterality: right Lung location: unspecified part of lung Pneumonia type: due to unspecified organism CAD (coronary artery disease) I25.10 Associated angina: without angina Coronary Disease-Associated Artery/Lesion type: [place] artery [place] vs. transplanted heart: [place] heart Diabetes E11.42; Z79.4 Diabetes mellitus complication detail: with polyneuropathy Diabetes mellitus complication status: with neurologic complications Diabetes mellitus fpc insulin use: with fpc use Diabetes mellitus type: type 2 Gout M10.9 Chronicity: unspecified Gout etiology: unspecified cause Gout site: unspecified site History of gastric bypass Z98.84 Chronic headache R51 Headache type: unspecified Intractability: not intractable Candidiasis of mouth and esophagus B37.81; B37.0 Nonsustained ventricular tachycardia I47.2 PAF (paroxysmal atrial fibrillation) I48.0 History of myocarditis Z86.79 Chronic kidney disease, stage 3a N18.3 DVT prophylaxis Z29.9 Time Spent (min) 25 (1) Rheumatoid arthritis Rheumatoid arthritis location: unspecified site Rheumatoid factor presence: unspecified presence Qualified Code(s): M06.9 - Rheumatoid arthritis, unspecified (2) Diabetes Diabetes mellitus complication detail: with polyneuropathy Diabetes mellitus complication status: with neurologic complications Diabetes mellitus 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 transplanted heart: [place] heart Qualified Code(s): I25.10 - Atherosclerotic heart disease of [place] coronary artery without angina pectoris (5) Chronic headache Headache type: unspecified Intractability: not intractable Qualified Code(s): R51 - Headache (6) Pneumonia Laterality: right Lung location: unspecified part of lung Pneumonia type: due to unspecified organism Qualified Code(s): J18.9 - Pneumonia, unspecified organism
[2020-01-30] MEDS: HYDROCODONE/ACETAMOPHEN 5/325MG TAB PO PRN (03:08)
[2020-01-30] MEDS: ALBUT/IPRATROP 3MG/0.5MG NEB 3 ML VIAL INH SCH ×2 (07:10→18:59)
[2020-01-30] MEDS: ONDANSETRON INJ 2 MG/ML 2 ML VIAL IV PRN (08:17)
[2020-01-30] MEDS: GABAPENTIN 300 MG CAP PO SCH ×2 (08:20→21:32)
[2020-01-30] MEDS: PANTOprazole 40 MG TAB PO SCH (08:20)
[2020-01-30] MEDS: NYSTATIN SUSP 500,000 U/5 ML UDC PO SCH ×4 (08:20→21:29)
[2020-01-30] MEDS: ISOSORBIDE MONO EXTENDED REL 30 MG TABCR PO SCH (08:20)
[2020-01-30] MEDS: ENOXAPARIN INJ 40 MG/0.4 ML SYR SQ SCH (08:20)
[2020-01-30] MEDS: predniSONE 10 MG TABLET PO SCH ×2 (08:20→21:32)
[2020-01-30] MEDS: FINASTERIDE 5 MG TAB PO SCH (08:20)
[2020-01-30] MEDS: FERROUS SULFATE 325 MG TAB PO SCH ×2 (08:21→21:30)
[2020-01-30] MEDS: PSYLLIUM 58.6% POWDER PACKET PO SCH ×2 (08:21→09:42)
[2020-01-30] MEDS: TOPIRAMATE 50 MG TAB PO SCH ×2 (08:21→21:34)
[2020-01-30] MEDS: levETIRAcetam 500 MG TAB PO SCH ×2 (08:21→21:32)
[2020-01-30] MEDS: AZITHROMYCIN 250 MG TAB PO SCH (08:21)
[2020-01-30] MEDS: FLUTICASONE/VILANTEROL 100/25MCG 14 PUFFS/INHALER INH SCH (08:21)
[2020-01-30] MEDS: INSULIN ASPART 100 UNITS/ML 3 ML PEN SC SCH ×4 (08:26→21:29)
[2020-01-30] MEDS: POLYETHYLENE (MIRALAX) 17 GM PACK PO SCH (11:14)
--- NOTE | 2020-01-30 11:19 | XRay Report ---
XR hip RT 2V w pelvis CLINICAL HISTORY: pain in right groin/ check for hip osteoarthritis COMPARISON STUDY: None. FINDINGS: Residual contrast within the colon from the recent CT examination. Gastric lap band port an d tubing are partially visualized. No fracture or dislocation within the pelvis or hips. The sacrum i s intact. Mild vascular calcifications are noted. Tiny marginal osteophytes within the bilateral hips with slight cartilage space narrowing. This is consistent with mild osteoarthritis. IMPRESSION: Mild osteoarthritis within the bilateral hips. No fractures within the pelvis or hips. ACT 112: Negative or not required by law. Electronically signed by: Jc Che M.D. 01/30/2020 11:17 AM
[2020-01-30] MEDS: WARFARIN SOD 7.5 MG TAB PO SCH (17:26)
[2020-01-30] MEDS: INSULIN GLARGINE 100 UNIT/ML VIAL SC SCH (21:31)
[2020-01-30] MEDS: ATORVASTATIN 40 MG TAB PO SCH (21:31)
[2020-01-30] MEDS: allopurinoL 100 MG TAB PO SCH (21:33)
--- NOTE | 2020-01-30 23:32 | Hospitalist Progress Note ---
Date of Service January 30, 2020 Assessment & Plan (1) Abdominal pain, RLQ: Had such earlier this month while hospitalized at [facility]. Thought to be constipation. - Had large BM on 01/23 after fleet enema and has continued pain. Area would be in the inguinal canal area, but no hernia felt. - Ultrasound of right groin on 01/24 showed no hernia or testicular torsion. CT a/p showed a possible SBO; however, clinically this is not the case. The pain doesn't worsen with eating, he has no nausea/vomiting. - Will continue bowel regimen. - Low-dose oral pain regimen. Pending placement Had U/S of kidney bladder which was negative, he did have signs of chronic outlet obstruction, but this does not appear to be causing his symptoms. U/S for mesenteric ischemia is also negative. X-ray of hip was negative. Patient reports he wants to go home and no longer wants to go to SNF, however, he states he is not strong enough to go home. (2) Stroke-like symptoms: Patient with recurrent spells of "shaking" arms followed by brief loss of consciousness but no prolonged post-ictal state. Spells could be complex partial seizures vs. pseudoseizures. MRI brain this admission without old or new stroke. - Negative EEG on 01/20. - Evaluated by Dr Kori Willams (patient had been taking for chronic migraines) increased to 50mg BID. - Added Keppra 500mg BID to his regimen to cover for complex partial seizures on 01/21. - Another episode on 01/24 in the context of being anxious/upset about his right inguinal pain. - Discussed with [place] neurology who feel no need for transfer and arrange for outpatient 3-day monitoring. 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 CPK wnl. CRP 0. TSH wnl. B12 wnl. Lyme negative. Aldolase - 12.5 Mild proximal muscle weakness on right but left fairly normal. This is odd given the asymmetry. Follows with Dr Shahid Christina in [place] ([phone]). On chronic prednisone 10mg BID. Had opinion from [facility] in August 2019 for polymyositis and his ILD. Rituxan x 2 doses given since that visit. Last dose - 12/24/2019. Dr Buckley from [facility] spoke with pt's primary lay health advocate in [place] on 01/21 -- prior CPKs have always been normal. No changes to meds recommended by his primary lay health advocate. - Continue prednisone 10mg BID. (4) Rheumatoid arthritis: Not active at this time. - Continue prednisone. (5) History of aortic valve replacement: 2003 - following aortic dissection. Echo at [facility] - although limited - with presumed intact valve function. - Continue warfarin. - INR goal 2-3: 2.5 last check. (6) Interstitial lung disease: Likely 2nd to RA. - Continue prednisone, DuoNebs BID, & fluticasone/vilanterol. CXR 01/20 with ?RLL pneumonia - started rocephin for such. Repeat cxr today with clearing RLL infiltrate. Uncertain if pneumonia but will finish a course of abx. Change rocephin to omnicef. Complete 5 more days of latter. Already taking chronic zithromax for prophylaxis (MAC prevention?). - Stable today. (7) Pneumonia: Question of - RLL - based on cxr 01/20. - Repeat CXR on 01/22 with resolving RLL infiltrate. - Will finish course of abx - changed Rocephin to Omnicef on 01/23. - Already on chronic azithromycin 3 days/week. (8) CAD (coronary artery disease): Having 1-2x's a week episodes of chest pain but negative heart cath x 2 in 03/2019 and 04/2019. Had chest pain earlier this stay - resolved with nitro. Despite such had negative troponins. - Continue atorvastatin. - Patient is not on ASA, ALMA-inhibitor or BB (states he cannot tolerate Beta- blockers). - Continue Imdur. (9) Diabetes: A1c was 8.1% this admission. - Very labile during the stay. - Continue lower Lantus at 35 units HS - Continue sliding scale insulin -> Much better overnight stability with Lantus 35 units HS and a tighter sliding scale. Will keep steady today. (10) Gout: No flare right now. - Continue allopurinol (11) History of gastric bypass: Noted. Iron studies c/w iron def - consider Venofer. - Continue oral Fe in meantime. - Checked B12 level - wnl. (12) Chronic headache: Migraines per patient. - Continue Topamax prophylaxis. - No headache today. (13) Candidiasis of mouth and esophagus: - Nystatin 5cc ac/hs - Improved. (14) Nonsustained ventricular tachycardia: 20-beat run - no symptoms and did not correlate with his shaking spells - on 01/21/20. Another on 01/23. - Continue to monitor. (15) PAF (paroxysmal atrial fibrillation): Seen incidentally during cardiology office visit in [place] on 05/27/19 per records. - No a.fib during the stay thus far. - Continue chronic warfarin. 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 Presented with fever, chest pain, +troponin with peak to 18. - Cath at that time with patent left main stent and non-obstructive CAD in other vessels. - Treated with prednisone. (17) Chronic kidney disease, stage 3a: Records from [facility] with Cr 1.6. - Cr stable as baseline, though a bit higher today. Monitor. (18) DVT prophylaxis: On warfarin for paroxysmal afib: INR at 2.5 on 01/25. Admission and Anticipated Discharge Date Admission Date: January 20, 2020 Subjective Patient has no new complaints. Review of Systems Review of Systems: All systems reviewed & are unremarkable except as noted in HPI & below Physical Exam Physical Exam: Constitutional: WD/WN, vitals as above Eyes: EOM intact bilaterally; no conjunctival abnormality ENMT: external ear and nose normal, oropharynx normal Neck: trachea midline, no thyromegaly normal visual inspection Respiratory: normal respiratory effort, lungs clear to auscultation no respiratory distress Cardiovascular: RRR, no murmur, no edema Gastrointestinal (Abdomen): Inspection/Auscultation: abdomen normal to inspection; abdomen not distended Musculoskeletal: no cyanosis or clubbing, extremities motor strength 5/5 Skin: no rashes, warm and dry Neurologic: moves all extremities and awake Psychiatric: Orientation: alert, oriented to person and cooperative Genitourinary: + external tenderness (Right groin/inguinal area); no testes abnormality, no external erythema, no external lesion, no edema and no hernia Results & Data Results & Data ([facility]) Vital Signs (Past 12 Hours) Vital Signs Temp Pulse Pulse Resp BP BP Pulse Ox 01/30/20 20:09 36.4 C L 61 18 124/73 95 01/30/20 19:01 60 16 97 01/30/20 16:30 72 01/30/20 15:59 36.7 C 65 16 111/68 97 01/30/20 14:35 76 16 110/65 97 PG Care Time/CCT Total # of Minutes Spent Total Time Spent with Patient: Total time spent is greater than 50% in coordination of care (as documented) at patient's floor/unit and/or counseling patient: Coding Level of Care Code 08546 Subseq Hosp Care Lvl 2 Diagnoses Abdominal pain, RLQ R10.31 Stroke-like symptoms R29.90 Polymyositis M33.20 Rheumatoid arthritis M06.9 Rheumatoid arthritis location: unspecified site Rheumatoid factor presence: unspecified presence History of aortic valve replacement Z95.2 Interstitial lung disease J84.9 Pneumonia J18.9 Laterality: right Lung location: unspecified part of lung Pneumonia type: due to unspecified organism CAD (coronary artery disease) I25.10 Associated angina: without angina Coronary Disease-Associated Artery/Lesion type: [place] artery [place] vs. transplanted heart: [place] heart Diabetes E11.42; Z79.4 Diabetes mellitus complication detail: with polyneuropathy Diabetes mellitus complication status: with neurologic complications Diabetes mellitus roasterman insulin use: with roasterman use Diabetes mellitus type: type 2 Gout M10.9 Chronicity: unspecified Gout etiology: unspecified cause Gout site: unspecified site History of gastric bypass Z98.84 Chronic headache R51 Headache type: unspecified Intractability: not intractable Candidiasis of mouth and esophagus B37.81; B37.0 Nonsustained ventricular tachycardia I47.2 PAF (paroxysmal atrial fibrillation) I48.0 History of myocarditis Z86.79 Chronic kidney disease, stage 3a N18.3 DVT prophylaxis Z29.9 Time Spent (min) 25 (1) Rheumatoid arthritis Rheumatoid arthritis location: unspecified site Rheumatoid factor presence: unspecified presence Qualified Code(s): M06.9 - Rheumatoid arthritis, unspecified (2) Diabetes Diabetes mellitus complication detail: with polyneuropathy Diabetes mellitus complication status: with neurologic complications Diabetes mellitus roasterman insulin use: with nursing home use Diabetes mellitus type: type 2 Qualified Cod e(s): E11.42 - Type 2 diabetes mellitus with diabetic polyneuropathy; Z79.4 - skilled nursing (current) use of insulin (3) Gout Chronicity: unspecified Gout etiology: unspecified cause Gout site: unspecified site Qualified Code(s): M10.9 - Gout, unspecified (4) CAD (coronary artery disease) Associated angina: without angina Coronary Disease-Associated Artery/Lesion type: [place] artery [place] vs. transplanted heart: [place] heart Qualified Code(s): I25.10 - Atherosclerotic heart disease of [place] coronary artery without angina pectoris (5) Chronic headache Headache type: unspecified Intractability: not intractable Qualified Code(s): R51 - Headache (6) Pneumonia Laterality: right Lung location: unspecified part of lung Pneumonia type: due to unspecified organism Qualified Code(s): J18.9 - Pneumonia, unspecified organism
[2020-01-31] MEDS: ACETAMINOPHEN 325 MG TAB PO PRN ×3 (02:03→20:37)
[2020-01-31] MEDS: ALBUT/IPRATROP 3MG/0.5MG NEB 3 ML VIAL INH SCH ×2 (07:31→19:13)
[2020-01-31 08:32] LABS: Creatinine Clr Calc Pharmacy 52.9 ml/min; Est GFR (Non-African American) 43.1
[2020-01-31] MEDS: FLUTICASONE/VILANTEROL 100/25MCG 14 PUFFS/INHALER INH SCH (08:33)
[2020-01-31] MEDS: FERROUS SULFATE 325 MG TAB PO SCH ×2 (08:34→20:22)
[2020-01-31] MEDS: POLYETHYLENE (MIRALAX) 17 GM PACK PO SCH (08:34)
[2020-01-31] MEDS: predniSONE 10 MG TABLET PO SCH ×2 (08:34→20:20)
[2020-01-31] MEDS: ISOSORBIDE MONO EXTENDED REL 30 MG TABCR PO SCH (08:34)
[2020-01-31] MEDS: PANTOprazole 40 MG TAB PO SCH (08:34)
[2020-01-31] MEDS: ENOXAPARIN INJ 40 MG/0.4 ML SYR SQ SCH (08:34)
[2020-01-31] MEDS: NYSTATIN SUSP 500,000 U/5 ML UDC PO SCH ×3 (08:34→16:05)
[2020-01-31] MEDS: INSULIN ASPART 100 UNITS/ML 3 ML PEN SC SCH ×4 (08:34→20:24)
[2020-01-31] MEDS: GABAPENTIN 300 MG CAP PO SCH ×2 (08:34→20:21)
[2020-01-31] MEDS: levETIRAcetam 500 MG TAB PO SCH ×2 (08:34→20:21)
[2020-01-31] MEDS: FINASTERIDE 5 MG TAB PO SCH (08:34)
[2020-01-31] MEDS: TOPIRAMATE 50 MG TAB PO SCH ×2 (08:34→20:20)
[2020-01-31] MEDS: PSYLLIUM 58.6% POWDER PACKET PO SCH (08:34)
[2020-01-31] MEDS: WARFARIN SOD 5 MG TAB PO SCH (16:04)
[2020-01-31] MEDS: allopurinoL 100 MG TAB PO SCH (20:21)
[2020-01-31] MEDS: ATORVASTATIN 40 MG TAB PO SCH (20:22)
[2020-01-31] MEDS: INSULIN GLARGINE 100 UNIT/ML VIAL SC SCH (20:23)
[2020-01-31] MEDS: MAGNESIUM HYDROXIDE SUSP 30 ML UDC PO PRN (20:33)
--- NOTE | 2020-01-31 22:15 | Hospitalist Progress Note ---
Date of Service January 31, 2020 Assessment & Plan (1) Abdominal pain, RLQ: Had such earlier this month while hospitalized at [facility]. Thought to be constipation. - Had large BM on 01/23 after fleet enema and has continued pain. Area would be in the inguinal canal area, but no hernia felt. - Ultrasound of right groin on 01/24 showed no hernia or testicular torsion. CT a/p showed a possible SBO; however, clinically this is not the case. The pain doesn't worsen with eating, he has no nausea/vomiting. - Will continue bowel regimen. - Low-dose oral pain regimen. Pending discharge home with son on Sunday. -Refused discharge to longterm on 01/29 Had U/S of kidney bladder which was negative, he did have signs of chronic outlet obstruction, but this does not appear to be causing his symptoms. U/S for mesenteric ischemia is also negative. X-ray of hip was negative. (2) Stroke-like symptoms: Patient with recurrent spells of "shaking" arms followed by brief loss of consciousness but no prolonged post-ictal state. Spells could be complex partial seizures vs. pseudoseizures. MRI brain this admission without old or new stroke. - Negative EEG on 01/20. - Evaluated by Dr Sheikh - Topamax (patient had been taking for chronic migraines) increased to 50mg BID. - Added Keppra 500mg BID to his regimen to cover for complex partial seizures on 01/21. - Another episode on 01/24 in the context of being anxious/upset about his right inguinal pain. - Discussed with [place] neurology who feel no need for transfer and arrange for outpatient 3-day monitoring. Dr. Sam will order this once he arrives at his outpatient office. 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 CPK wnl. CRP 0. TSH wnl. B12 wnl. Lyme negative. Aldolase - 12.5 Mild proximal muscle weakness on right but left fairly normal. This is odd given the asymmetry. Follows with Dr Shahid Christina in [place] ([phone]). On chronic prednisone 10mg BID. Had opinion from [facility] in August 2019 for polymyositis and his ILD. Rituxan x 2 doses given since that visit. Last dose - 12/24/2019. Dr Buckley from [facility] spoke with pt's primary national service officer in [place] on 01/21 -- prior CPKs have always been normal. No changes to meds recommended by his primary national service officer. - Continue prednisone 10mg BID. (4) Rheumatoid arthritis: Not active at this time. - Continue prednisone. (5) History of aortic valve replacement: 2003 - following aortic dissection. Echo at [facility] - although limited - with presumed intact valve function. - Continue warfarin. - INR goal 2-3: 2.5 last check. (6) Interstitial lung disease: Likely 2nd to RA. - Continue prednisone, DuoNebs BID, & fluticasone/vilanterol. CXR 01/20 with ?RLL pneumonia - started rocephin for such. Repeat cxr today with clearing RLL infiltrate. Uncertain if pneumonia but will finish a course of abx. Change rocephin to omnicef. Complete 5 more days of latter. Already taking chronic zithromax for prophylaxis (MAC prevention?). No indication for PCP prophylaxis. - Stable today. (7) Pneumonia: Question of - RLL - based on cxr 01/20. - Repeat CXR on 01/22 with resolving RLL infiltrate. - Will finish course of abx - changed Rocephin to Omnicef on 01/23. - Already on chronic azithromycin 3 days/week. (8) CAD (coronary artery disease): Having 1-2x's a week episodes of chest pain but negative heart cath x 2 in 03/2019 and 04/2019. Had chest pain earlier this stay - resolved with nitro. Despite such had negative troponins. - Continue atorvastatin. - Patient is not on ASA, ALMA-inhibitor or BB (states he cannot tolerate Beta- blockers). - Continue Imdur. (9) Diabetes: A1c was 8.1% this admission. - Very labile during the stay. - Continue lower Lantus at 35 units HS - Continue sliding scale insulin -> Much better overnight stability with Lantus 35 units HS and a tighter sliding scale. Will keep steady today. (10) Gout: No flare right now. - Continue allopurinol (11) History of gastric bypass: Noted. Iron studies c/w iron def - consider Venofer. - Continue oral Fe in meantime. - Checked B12 level - wnl. (12) Chronic headache: Migraines per patient. - Continue Topamax prophylaxis. - No headache today. (13) Candidiasis of mouth and esophagus: - Nystatin 5cc ac/hs - Improved. (14) Nonsustained ventricular tachycardia: 20-beat run - no symptoms and did not correlate with his shaking spells - on 01/21/20. Another on 01/23. - Continue to monitor. (15) PAF (paroxysmal atrial fibrillation): Seen incidentally during cardiology office visit in [place] on 05/27/19 per records. - No a.fib during the stay thus far. - Continue chronic warfarin. 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. Presented with fever, chest pain, +troponin with peak to 18. - Cath at that time with patent left main stent and non-obstructive CAD in other vessels. - Treated with prednisone. (17) Chronic kidney disease, stage 3a: Records from [facility] with Cr 1.6. - Cr stable as baseline, though a bit higher today. Monitor. (18) DVT prophylaxis: On warfarin for paroxysmal afib: INR at 2.2 on 01/26. has been therapeutic, may consder repeat INR before discharge Admission and Anticipated Discharge Date Admission Date: January 20, 2020 Subjective Patient has no new complaints today. He reports his RLQ pain has improved. He is awaiting discharge for Sunday home with his son. Review of Systems Review of Systems: All systems reviewed & are unremarkable except as noted in HPI & below Physical Exam Physical Exam: Constitutional: WD/WN, vitals as above Eyes: EOM intact bilaterally; no conjunctival abnormality ENMT: external ear and nose normal, oropharynx normal Neck: trachea midline, no thyromegaly normal visual inspection Respiratory: normal respiratory effort, lungs clear to auscultation no respiratory distress Cardiovascular: RRR, no murmur, no edema Gastrointestinal (Abdomen): Inspection/Auscultation: abdomen normal to inspection; abdomen not distended Musculoskeletal: no cyanosis or clubbing, extremities motor strength 5/5 Skin: no rashes, warm and dry Neurologic: moves all extremities and awake Psychiatric: Orientation: alert, oriented to person and cooperative Genitourinary: + external tenderness (Right groin/inguinal area); no testes abnormality, no external erythema, no external lesion, no edema and no hernia Results & Data Results & Data ([facility]) Vital Signs (Past 12 Hours) Vital Signs Temp Pulse Pulse Resp BP BP Pulse Ox 01/31/20 19:30 36.5 C 67 18 122/81 99 01/31/20 19:14 60 18 94 01/31/20 15:36 36.8 C 114 H 20 115/73 94 01/31/20 15:13 81 01/31/20 13:03 36.2 C L 65 18 128/66 99 01/31/20 10:20 67 PG Care Time/CCT Total # of Minutes Spent Total Time Spent with Patient: Total time spent is greater than 50% in coordination of care (as documented) at patient's floor/unit and/or counseling patient: Coding Level of Care Code 99796 Subseq Hosp Care Lvl 2 Diagnoses Abdominal pain, RLQ R10.31 Stroke-like symptoms R29.90 Polymyositis M33.20 Rheumatoid arthritis M06.9 Rheumatoid arthritis location: unspecified site Rheumatoid factor presence: unspecified presence History of aortic valve replacement Z95.2 Interstitial lung disease J84.9 Pneumonia J18.9 Laterality: right Lung location: unspecified part of lung Pneumonia type: due to unspecified organism CAD (coronary artery disease) I25.10 Associated angina: without angina Coronary Disease-Associated Artery/Lesion type: [place] artery [place] vs. transplanted heart: [place] heart Diabetes E11.42; Z79.4 Diabetes mellitus complication detail: with polyneuropathy Diabetes mellitus complication status: with neurologic complications Diabetes mellitus terminologist insulin use: with terminologist use Diabetes mellitus type: type 2 Gout M10.9 Chronicity: unspecified Gout etiology: unspecified cause Gout site: unspecified site History of gastric bypass Z98.84 Chronic headache R51 Headache type: unspecified Intractability: not intractable Candidiasis of mouth and esophagus B37.81; B37.0 Nonsustained ventricular tachycardia I47.2 PAF (paroxysmal atrial fibrillation) I48.0 History of myocarditis Z86.79 Chronic kidney disease, stage 3a N18.3 DVT prophylaxis Z29.9 Time Spent (min) 25 (1) Rheumatoid arthritis Rheumatoid arthritis location: unspecified site Rheumatoid factor presence: unspecified presence Qualified Code(s): M06.9 - Rheumatoid arthritis, unspecified (2) Diabetes Diabetes mellitus complication detail: with polyneuropathy Diabetes mellitus complication status: with neurologic complications Diabetes mellitus terminologist insulin use: with group home use Diabetes mellitus type: type 2 Qualified Code(s): E11.42 - Type 2 diabetes mellitus with diabetic polyneuropathy; Z79.4 - terminologist (current) use of insulin (3) Gout Chronicity: unspecified Gout etiology: unspecified cause Gout site: unspecified site Qualified Code(s): M10.9 - Gout, unspecified (4) CAD (coronary artery disease) Associated angina: without angina Coronary Disease-Associated Artery/Lesion type: [place] artery [place] vs. transplanted heart: [place] heart Qualified Code(s): I25.10 - Atherosclerotic heart disease of [place] coronary artery without angina pectoris (5) Chronic headache Headache type: unspecified Intractability: not intractable Qualified Code(s): R51 - Headache (6) Pneumonia Laterality: right Lung location: unspecified part of lung Pneumonia type: due to unspecified organism Qualified Code(s): J18.9 - Pneumonia, unspecified organism
[2020-02-01] MEDS: ALBUT/IPRATROP 3MG/0.5MG NEB 3 ML VIAL INH SCH ×2 (07:19→19:10)
[2020-02-01 07:28] LABS: Hematocrit (blood only) 34.5 % (42-52); Hemoglobin 11.2 g/dL (14.0-18.0); Mean Corpuscular Hemoglobin 28.3 pg (25-34); Mean Corpuscular Hgb Conc 32.5 g/dL (32-36); Mean Corpuscular Volume 87.1 fL (80-100); Mean Platelet Volume 9.1 fL (7.4-10.4); Platelet Count 107 K/uL (130-400); RDW Coefficient of Variation 18.1 % (11.5-14.5); RDW Standard Deviation 57.4 fL (36.4-46.3); Red Blood Count 3.96 M/uL (4.7-6.1); White Blood Count 5.65 K/uL (4.8-10.8)
[2020-02-01 07:48] LABS: INR 1.9 (0.9-1.1); Prothrombin Time 19.5 Seconds (9.0-12.0)
[2020-02-01 07:53] LABS: BUN Creatinine Ratio 19.6 (10-20); Calcium 9.1 mg/dl (8.5-10.1); Creatinine Clr Calc Pharmacy 51.1 ml/min; Est GFR (African American) 48.1; Est GFR (Non-African American) 41.5
[2020-02-01] MEDS: levETIRAcetam 500 MG TAB PO SCH ×2 (08:12→21:10)
[2020-02-01] MEDS: TOPIRAMATE 50 MG TAB PO SCH ×2 (08:12→21:09)
[2020-02-01] MEDS: ENOXAPARIN INJ 40 MG/0.4 ML SYR SQ SCH (08:12)
[2020-02-01] MEDS: FERROUS SULFATE 325 MG TAB PO SCH ×2 (08:12→21:09)
[2020-02-01] MEDS: POLYETHYLENE (MIRALAX) 17 GM PACK PO SCH (08:12)
[2020-02-01] MEDS: PSYLLIUM 58.6% POWDER PACKET PO SCH (08:12)
[2020-02-01] MEDS: FINASTERIDE 5 MG TAB PO SCH (08:12)
[2020-02-01] MEDS: GABAPENTIN 300 MG CAP PO SCH ×2 (08:12→21:10)
[2020-02-01] MEDS: PANTOprazole 40 MG TAB PO SCH (08:12)
[2020-02-01] MEDS: FLUTICASONE/VILANTEROL 100/25MCG 14 PUFFS/INHALER INH SCH (08:12)
[2020-02-01] MEDS: predniSONE 10 MG TABLET PO SCH ×2 (08:12→21:11)
[2020-02-01] MEDS: ISOSORBIDE MONO EXTENDED REL 30 MG TABCR PO SCH (08:12)
[2020-02-01] MEDS: MAGNESIUM HYDROXIDE SUSP 30 ML UDC PO PRN (08:14)
[2020-02-01] MEDS: INSULIN ASPART 100 UNITS/ML 3 ML PEN SC SCH ×4 (08:14→21:12)
[2020-02-01] MEDS: ACETAMINOPHEN 325 MG TAB PO PRN (12:20)
--- NOTE | 2020-02-01 15:57 | Hospitalist Progress Note ---
Date of Service February 01, 2020 Assessment & Plan (1) Abdominal pain, RLQ: Had such earlier this month while hospitalized at [facility]. Thought to be constipation. - Had large BM on 01/23 after fleet enema and has continued pain. Area would be in the inguinal canal area, but no hernia felt. - Ultrasound of right groin on 01/24 showed no hernia or testicular torsion. CT a/p showed a possible SBO; however, clinically this is not the case. The pain doesn't worsen with eating, he has no nausea/vomiting. - Had U/S of kidney bladder which was negative, he did have signs of chronic outlet obstruction, but this does not appear to be causing his symptoms. - U/S for mesenteric ischemia is also negative. - X-ray of hip was negative. Final thought: Seems to be MSK in nature. Possibly a mild bone bruise from his falls at home (fell at least 4 times). At this point, doing well. - Will continue low-dose oral pain regimen & bowel regimen. (2) Stroke-like symptoms: Patient with recurrent spells of "shaking" arms followed by brief loss of consciousness but no prolonged post-ictal state. Spells could be complex partial seizures vs. pseudoseizures. MRI brain this admission without old or new stroke. - Negative EEG on 01/20. - Evaluated by Dr Sheikh - Topamax (patient had been taking for chronic migraines) increased to 50mg BID. - Added Keppra 500mg BID to his regimen to cover for complex partial seizures on 01/21. - Another episode on 01/24 in the context of being anxious/upset about his right inguinal pain. - Discussed with [facility] neurology earlier in admission who feel no need for transfer and arrange for outpatient 3-day monitoring. - Dr. Sam will order this once he arrives at his outpatient office. 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 CPK wnl. CRP 0. TSH wnl. B12 wnl. Lyme negative. Aldolase - 12.5 Mild proximal muscle weakness on right but left fairly normal. This is odd given the asymmetry. Follows with Dr Shahid Christina in [place] ([phone]). On chronic prednisone 10mg BID. Had opinion from [facility] in August 2019 for polymyositis and his ILD. Rituxan x 2 doses given since that visit. Last dose - 12/24/2019. Dr Buck[facility] from [facility] spoke with pt's primary civil preparedness coordinator in [place] on 01/21 -- prior CPKs have always been normal. No changes to meds recommended by his primary civil preparedness coordinator. - Continue prednisone 10mg BID. (4) Rheumatoid arthritis: Not active at this time. - Continue prednisone. (5) History of aortic valve replacement: 2003 - following aortic dissection. Echo at [facility] - although limited - with presumed intact valve function. - Continue warfarin. - INR goal 2-3: 1.9 on 01/31. (6) Interstitial lung disease: Likely 2nd to RA. - Continue prednisone, DuoNebs BID, & fluticasone/vilanterol. CXR 01/20 with ?RLL pneumonia - started rocephin for such. Repeat cxr today with clearing RLL infiltrate. Uncertain if pneumonia but will finish a course of abx. Change rocephin to omnicef. Complete 5 more days of latter. Already taking chronic zithromax for prophylaxis (MAC prevention?). No indication for PCP prophylaxis. - Stable today. (7) Pneumonia: Question of - RLL - based on cxr 01/20. - Repeat CXR on 01/22 with resolving RLL infiltrate. - Changed Rocephin to Omnicef on 01/23. Finished while inpatient. - Already on chronic azithromycin 3 days/week. (8) CAD (coronary artery disease): Having 1-2x's a week episodes of chest pain but negative heart cath x 2 in 03/2019 and 04/2019. Had chest pain earlier this stay - resolved with nitro. Despite such had negative troponins. - Continue atorvastatin. - Patient is not on ASA, ALMA-inhibitor or BB (states he cannot tolerate beta- blockers). - Continue Imdur. (9) Diabetes: A1c was 8.1% this admission. - Very labile during the stay. - Continue lower Lantus at 35 units HS - Continue sliding scale insulin (10) Gout: No flare right now. - Continue allopurinol (11) History of gastric bypass: Noted. Iron studies c/w iron def - consider Venofer. - Continue oral Fe in meantime. - Checked B12 level - wnl. (12) Chronic headache: Migraines per patient. - Continue Topamax prophylaxis. - No headache today. (13) Candidiasis of mouth and esophagus: - Nystatin 5cc ac/hs - Improved. (14) Nonsustained ventricular tachycardia: 20-beat run - no symptoms and did not correlate with his shaking spells - on 01/21/20. Another on 01/23. - Continue to monitor. (15) PAF (paroxysmal atrial fibrillation): Seen incidentally during cardiology office visit in [place] on 05/27/19 per records. - No a.fib during the stay thus far. - Continue chronic warfarin. 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 Presented with fever, chest pain, +troponin with peak to 18. - Cath at that time with patent left main stent and non-obstructive CAD in other vessels. - Treated with prednisone. (17) Chronic kidney disease, stage 3a: Records from [facility] with Cr 1.6. - Cr stable as baseline. (18) DVT prophylaxis: On warfarin for paroxysmal afib: INR at 1.9 on 01/31. Admission and Anticipated Discharge Date Admission Date: January 20, 2020 Subjective Feeling well today. No major concerns. Reports no fevers/chills, chest pain, shortness of breath, abdominal pain, nausea, or vomiting. Physical Exam Constitutional: WD/WN, vitals as above Eyes: EOM intact bilaterally; no conjunctival abnormality ENMT: external ear and nose normal, oropharynx normal Neck: trachea midline, no thyromegaly normal visual inspection Respiratory: normal respiratory effort, lungs clear to auscultation no respiratory distress Cardiovascular: RRR, no murmur, no edema Gastrointestinal (Abdomen): Inspection/Auscultation: abdomen normal to inspection; abdomen not distended Musculoskeletal: no cyanosis or clubbing, extremities motor strength 5/5 Skin: no rashes, warm and dry Neurologic: moves all extremities and awake Psychiatric: Orientation: alert, oriented to person and cooperative Genitourinary: no testes abnormality, no external erythema, no external tenderness (Right groin/inguinal area), no external lesion, no edema and no hernia Results & Data Results & Data ([facility]) Vital Signs (Past 12 Hours) Vital Signs Temp Pulse Pulse Resp BP BP Pulse Ox 02/01/20 15:26 36.7 C 75 18 152/67 H 95 02/01/20 11:41 36.6 C 80 16 112/66 96 02/01/20 10:00 81 02/01/20 07:23 63 16 96 02/01/20 06:46 36.6 C 64 16 115/53 L 96 PG Care Time/CCT Total # of Minutes Spent Total Time Spent with Patient: Total time spent is greater than 50% in coordination of care (as documented) at patient's floor/unit and/or counseling patient: Coding Level of Care Code 37653 Subseq Hosp Care Lvl 2 Diagnoses Abdominal pain, RLQ R10.31 Stroke-like symptoms R29.90 Polymyositis M33.20 Rheumatoid arthritis M06.9 Rheumatoid arthritis location: unspecified site Rheumatoid factor presence: unspecified presence History of aortic valve replacement Z95.2 Interstitial lung disease J84.9 Pneumonia J18.9 Pneumonia type: due to unspecified organism Laterality: right Lung location: unspecified part of lung CAD (coronary artery disease) I25.10 Coronary Disease-Associated Artery/Lesion type: [place] artery [place] vs. transplanted heart: [place] heart Associated angina: without angina Diabetes E11.42; Z79.4 Diabetes mellitus type: type 2 Diabetes mellitus assistant terminal manager insulin use: with senior living use Diabetes mellitus complication status: with neurologic complications Diabetes mellitus complication detail: with polyneuropathy Gout M10.9 Gout site: unspecified site Gout etiology: unspecified cause Chronicity: unspecified History of gastric bypass Z98.84 Chronic headache R51 Headache type: unspecified Intractability: not intractable Candidiasis of mouth and esophagus B37.81; B37.0 Nonsustained ventricular tachycardia I47.2 PAF (paroxysmal atrial fibrillation) I48.0 History of myocarditis Z86.79 Chronic kidney disease, stage 3a N18.3 DVT prophylaxis Z29.9 (1) Rheumatoid arthritis Rheumatoid arthritis location: unspecified site Rheumatoid factor presence: unspecified presence Qualified Code(s): M06.9 - Rheumatoid arthritis, unspecified (2) Pneumonia Pneumonia type: due to unspecified organism Laterality: right Lung location: unspecified part of lung Qualified Code(s): J18.9 - Pneumonia, unspecified organism (3) CAD (coronary artery disease) Coronary Disease-Associated Artery/Lesion type: [place] artery [place] vs. transplanted heart: [place] heart Associated angina: without angina Qualified Code(s): I25.10 - Atherosclerotic heart disease of [place] coronary artery without angina pectoris (4) Diabetes Diabetes mellitus type: type 2 Diabetes mellitus assistant terminal manager insulin use: with senior living use Diabetes mellitus complication status: with neurologic complications Diabetes mellitus complication detail: with polyneuropathy Qualified Code(s): E11.42 - Type 2 diabetes mellitus with diabetic polyneuropathy; Z79.4 - intermodal customer service (current) use of insulin (5) Gout Gout site: unspecified site Gout etiology: unspecified cause Chronicity: unspecified Qualified Code(s): M10.9 - Gout, unspecified (6) Chronic headache Headache type: unspecified Intractability: not intractable Qualified Code(s): R51 - Headache
[2020-02-01] MEDS: WARFARIN SOD 5 MG TAB PO SCH (17:17)
[2020-02-01] MEDS: allopurinoL 100 MG TAB PO SCH (21:10)
[2020-02-01] MEDS: ATORVASTATIN 40 MG TAB PO SCH (21:11)
[2020-02-01] MEDS: INSULIN GLARGINE 100 UNIT/ML VIAL SC SCH (21:11)
[2020-02-02] MEDS: ALBUT/IPRATROP 3MG/0.5MG NEB 3 ML VIAL INH SCH (07:16)
[2020-02-02] MEDS: AZITHROMYCIN 250 MG TAB PO SCH (08:06)
[2020-02-02] MEDS: FLUTICASONE/VILANTEROL 100/25MCG 14 PUFFS/INHALER INH SCH (08:06)
[2020-02-02] MEDS: levETIRAcetam 500 MG TAB PO SCH (08:06)
[2020-02-02] MEDS: GABAPENTIN 300 MG CAP PO SCH (08:06)
[2020-02-02] MEDS: predniSONE 10 MG TABLET PO SCH (08:06)
[2020-02-02] MEDS: PANTOprazole 40 MG TAB PO SCH (08:07)
[2020-02-02] MEDS: POLYETHYLENE (MIRALAX) 17 GM PACK PO SCH (08:07)
[2020-02-02] MEDS: TOPIRAMATE 50 MG TAB PO SCH (08:07)
[2020-02-02] MEDS: FERROUS SULFATE 325 MG TAB PO SCH (08:07)
[2020-02-02] MEDS: PSYLLIUM 58.6% POWDER PACKET PO SCH (08:07)
[2020-02-02] MEDS: ISOSORBIDE MONO EXTENDED REL 30 MG TABCR PO SCH (08:07)
[2020-02-02] MEDS: FINASTERIDE 5 MG TAB PO SCH (08:07)
[2020-02-02] MEDS: ENOXAPARIN INJ 40 MG/0.4 ML SYR SQ SCH (08:08)
[2020-02-02] MEDS: INSULIN ASPART 100 UNITS/ML 3 ML PEN SC SCH ×2 (09:28→12:24)
--- NOTE | 2020-02-02 14:00 | Discharge Summary ---
Date of Service February 02, 2020 Admission HPI Per Admitting Provider Xavi Bradford is a 74yo C male presenting with stroke-like symptoms. Patient has a complicated medical history. He typically resides alone in [place], [place] but is currently staying with his son due to recent increase in falls. He reports increase in falls over the last few months. He was recently hospitalized at [facility] from 12/30 - 01/10 for complications following a fall. He was originally to be placed in rehab, however, this was reportedly denied by insurance. Patient declined placement in a shelter due to concern for Covid-19. Patients son states that patient has episodes where he has a blank affect and stare then begins to shake and wobble. Occasionally he falls during these episodes. He then has a brief period of confusion following these episodes before returning to baseline. Patient reports that he has woken up on the floor before not knowing how he got there or having any recollection of falling. Yesterday the patient was at an appointment and he had an episode of urinary incontinence. He reports standing up and losing control of his bladder, passing a large amount of urine on the chair. He states he did not feel the sensation of a full bladder. He has been incontinent of urine since yesterday. He also reports diminished bowel sensation. He states he is unable to fully empty his bowels and has some fecal retention at times with stool leakage. Additionally patient reports a dull frontal headache since yesterday, constant over the last 24 hours and associated with some nausea. Today around 19:00 he had some difficulty standing and an episode of slurred speech, facial droop and weakness of the right side. He reports blurry vision in his right eye He denies back pain, neck stiffness, fever, chills, vomiting, diarrhea, constipation, dysuria. Denies rashes, joint pain or inflammation. No visual disturbance at present. No pain with eye movement. No recent head trauma. Patient has history of RA and Polymyositis with lung involvement. He states that these conditions presented suddenly as dyspnea. He was evaluated at [facility] for theses conditions. He has undergone infusions of Rituximab x 2, he believes they were 6 months ago and 3 months ago. Principal Diagnosis Seizure-like episodes -> Possible complex partial seizures vs. pseudoseizures Discharge Exam Constitutional WD/WN, vitals as above Eyes EOM intact bilaterally; no conjunctival abnormality ENMT external ear and nose normal, oropharynx normal Neck trachea midline, no thyromegaly normal visual inspection Respiratory normal respiratory effort, lungs clear to auscultation no respiratory distress Cardiovascular RRR, no murmur, no edema Gastrointestinal (Abdomen) Inspection/Auscultation: abdomen normal to inspection; abdomen not distended Musculoskeletal no cyanosis or clubbing, extremities motor strength 5/5 Skin no rashes, warm and dry Neurologic moves all extremities and awake Psychiatric Orientation: alert, oriented to person and cooperative Genitourinary no testes abnormality, no external erythema, no external tenderness (Right groin/inguinal area), no external lesion, no edema and no hernia Discharge Data Allergies Allergy/AdvReac Type Severity Reaction Status Date / Time Iodinated Contrast Media Allergy Severe Anaphylaxis Verified 01/20/20 21:36 shellfish derived Allergy Severe Anaphylaxis Verified 01/20/20 21:36 Tetanus Vaccines and Toxoid Allergy Unknown Unknown Verified 01/20/20 21:36 Consultations 01/20/20 21:02 ED Decision to Admit Stat 01/21/20 01:49 Consult Case Management - Discharge Planning Routine Consult Neurology Routine Ordered Studies 01/20/20 19:59 CT head/brain wo con Stat 01/20/20 21:02 MR angio head wo con Urgent MR lumbar spine wo con Urgent 01/21/20 00:35 MR angio neck wo/w con Urgent MR brain wo/w con Urgent 01/25/20 11:10 US abdomen ltd hernia Urgent US scrotum/testicle Urgent 01/25/20 15:04 CT abd pelvis oral con only Routine 01/29/20 14:30 US duplex mesenteric Routine 01/29/20 15:00 US renal/blad retro comp Urgent Hospital Course (1) Seizure-like activity: Patient with recurrent spells of "shaking" arms followed by brief loss of consciousness but no prolonged post-ictal state. The arm shaking lasts about 10- 15 seconds, then he has a verbal tic (saying, "Ah ah ah" or something similar). Then he is unresponsive for about 30 seconds, followed by complete resolution. Spells could be complex partial seizures vs. pseudoseizures. MRI brain this admission without old or new stroke. - Negative EEG on 01/20, but patient had no episode during the EEG. - Evaluated by Dr Kori Willams (patient had been taking for chronic migraines) increased to 50mg BID. - Added Keppra 500mg BID to his regimen to cover for complex partial seizures on 01/21. - Another episode on 01/24 in the context of being anxious/upset about his right inguinal pain. - Discussed with [place] neurology on 01/25 who felt no need for transfer and arrange for outpatient 3-day monitoring. - Dr. Sam will order outpatient EEG once he arrives at his outpatient office. Discharged on higher dose of topiramate and levetiracetam. As of discharge, he hadn't had an episode for over 1 week. Arranged for home wheelchair as he has enough "prodrome" to frequently sit down before losing consciousness. (2) Abdominal pain, RLQ: Had such earlier this month while hospitalized at [facility]. Thought to be constipation. - Had large BM on 01/23 after fleet enema and has continued pain. Area would be in the inguinal canal area, but no hernia felt. - Ultrasound of right groin on 01/24 showed no hernia or testicular torsion. CT a/p showed a possible SBO; however, clinically this is not the case. The pain doesn't worsen with eating, he has no nausea/vomiting. - Had U/S of kidney bladder which was negative, he did have signs of chronic outlet obstruction, but this does not appear to be causing his symptoms. - U/S for mesenteric ischemia is also negative. - X-ray of hip was negative. Final thought: Seems to be MSK in nature. Possibly a mild bone bruise from his falls at home (fell at least 4 times). At this point, doing well. 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 CPK wnl. CRP 0. TSH wnl. B12 wnl. Lyme negative. Aldolase - 12.5 Mild proximal muscle weakness on right but left fairly normal. This is odd given the asymmetry. Follows with Dr Shahid Christina in [place] ([phone]). On chronic prednisone 10mg BID. Had opinion from [facility] in August 2019 for polymyositis and his ILD. Rituxan x 2 doses given since that visit. Last dose - 12/24/2019. Dr Buckley from [facility] spoke with pt's primary locks tender in [place] on 01/21 -- prior CPKs have always been normal. No changes to meds recommended by his primary locks tender. - Continue prednisone 10mg BID. (4) Rheumatoid arthritis: Not active at this time. - Continue prednisone. (5) History of aortic valve replacement: 2003 - following aortic dissection. Echo at [facility] - although limited - with presumed intact valve function. - Continue warfarin. - INR goal 2-3: 1.9 on 01/31. (6) Interstitial lung disease: Likely 2nd to RA. - Continue prednisone, DuoNebs BID, & fluticasone/vilanterol. CXR 01/20 with ?RLL pneumonia - started rocephin for such. Repeat cxr today with clearing RLL infiltrate. Uncertain if pneumonia but will finish a course of abx. Change rocephin to omnicef. Complete 5 more days of latter. Already taking chronic zithromax for prophylaxis (MAC prevention?). No indication for PCP prophylaxis. - Stable today. (7) Pneumonia: Question of - RLL - based on cxr 01/20. - Repeat CXR on 01/22 with resolving RLL infiltrate. - Changed Rocephin to Omnicef on 01/23. Finished while inpatient. - Already on chronic azithromycin 3 days/week. (8) CAD (coronary artery disease): Having 1-2x's a week episodes of chest pain but negative heart cath x 2 in 03/2019 and 04/2019. Had chest pain earlier this stay - resolved with nitro. Despite such had negative troponins. - Continue atorvastatin. - Patient is not on ASA, ALMA-inhibitor or BB (states he cannot tolerate beta- blockers). - Continue Imdur. (9) Diabetes: A1c was 8.1% this admission. - Very labile during the stay. - Continue lower Lantus at 35 units HS - Continue sliding scale insulin (10) Gout: No flare right now. - Continue allopurinol (11) History of gastric bypass: Noted. Iron studies c/w iron def - consider Venofer. - Continue oral Fe in meantime. - Checked B12 level - wnl. (12) Chronic headache: Migraines per patient. - Continue Topamax prophylaxis. - No headache today. (13) Candidiasis of mouth and esophagus: - Nystatin 5cc ac/hs - Improved. (14) Nonsustained ventricular tachycardia: 20-beat run - no symptoms and did not correlate with his shaking spells - on 01/21/20. Another on 01/23. - Continue to monitor. (15) PAF (paroxysmal atrial fibrillation): Seen incidentally during cardiology office visit in [place] on 05/27/19 per records. - No a.fib during the stay thus far. - Continue chronic warfarin. 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 Presented with fever, chest pain, +troponin with peak to 18. - Cath at that time with patent left main stent and non-obstructive CAD in other vessels. - Treated with prednisone. (17) Chronic kidney disease, stage 3a: Records from [facility] with Cr 1.6. - Cr stable as baseline. (18) DVT prophylaxis: On warfarin for paroxysmal afib: INR at 1.9 on 01/31. Total Time Total Time Spent Total Time Spent (In Minutes): 35 Discharge Plan Discharge Items Patient Disposition: Home - Home Health Services Reason For Visit: ? SEIZURE Discharge Diagnosis: Possible seizures Activity: Resume your previous activity Non-emergency contact: Primary Care Provider and Neurologist Call non-emergency contact if: you have any medication questions and your symptoms worsen Follow-up/Referrals: Irving Sam MD [Physician] - (Dr. Sam's office will call you with an appointment.) PCP,NO [Physician] - Diet: Carb Consistent or DM2 and Heart Healthy Addtl Attending Provider Instructions: Mr. Bradford, You were admitted to further work-up the spells (possible seizures) you were having at home. We have done a variety of testing, but have not captured one of the spells while you were on EEG. We did adjust your medications which seems to have substantially improved and even close to resolved the episodes. Please use the adjusted medication regimen as prescribed by neurology. Will need to followup with neurology to get outpatient EEG set up. This will be for 2-3 full days and help us determine any needed medication changes. OF NOTE: We did decrease your long-acting insulin while you were here in the hospital. Our meals are probably smaller and more tightly controlled, plus we gave you insulin with each meal. You only got 35 units here each evening, compared to your 100 units at home. I would increase your dose slightly tonight (say 50 units), then see how you do over the next few days. It wouldn't be very surprising if you gradually had to go back up on your insulin, but for now it makes sense to be cautious as low blood sugar levels can be dangerous. With the medication changes, we also adjusted your warfarin. Your levels here were good, so please continue this. We just increased your dose to 7.5 mg on Sunday, Sunday, Sunday, and Sunday, then your normal 5 mg the other days. Please have your doctor check your INR in a week or so to be sure it's stable between 2-3. Pending Studies at Discharge: Yes Stand-Alone Forms: My [facility], Smoking Cessation Medications and DC Order Prescriptions: New warfarin 5 mg Tablet 5 mg PO [id number]@1600 Qty: 30 RF: 0 warfarin 7.5 mg tablet 7.5 mg PO MOTHFR Qty: 30 RF: 0 acetaminophen 325 mg Tablet 650 mg PO Q4H PRNQty: 0 RF: 0 polyethylene glycol 3350 [Miralax] 17 gram Powder In Packet 17 g PO DAILY PRN (Reason: constipation) Qty: 30 RF: 0 levetiracetam [Keppra] 500 mg Tablet 500 mg PO BID Qty: 60 RF: 0 magnesium hydroxide [Milk of Magnesia] 400 mg/5 mL Suspension 30 ml PO Q6H PRNQty: 0 RF: 0 bisacodyl 5 mg Tablet,Delayed Release (Dr/Ec) 5 mg PO Q6H PRNQty: 0 RF: 0 topiramate 50 mg Tablet 50 mg PO BID Qty: 60 RF: 0 Continued fluticasone propion-salmeterol [Wixela Inhub] 250-50 mcg/dose Blister With Device 1 inh INHALATION Q12H RF: 0 atorvastatin 80 mg Tablet 80 mg PO HS RF: 0 ipratropium-albuterol 0.5 mg-3 mg(2.5 mg base)/3 mL Solution For Nebulization 3 ml INHALATION QID PRN (Reason: Shortness Of Breath Or Wheezing) RF: 0 torsemide 20 mg Tablet 20 mg PO DAILY RF: 0 trazodone 50 mg Tablet 50 mg PO HS PRN (Reason: Sleep) RF: 0 azithromycin 250 mg Tablet 250 mg PO 3XWK RF: 0 isosorbide mononitrate 30 mg Tablet Extended Release 24 Hr 30 mg PO QAM RF: 0 psyllium Packet 1 packet PO QAM RF: 0 prednisone 5 mg Tablet 10 mg PO BID RF: 0 potassium chloride 10 mEq Tablet Extended Release 10 meq PO BIDM RF: 0 allopurinol 100 mg Tablet 200 mg PO HS RF: 0 omeprazole 40 mg Capsule,Delayed Release(Dr/Ec) 40 mg PO QAM RF: 0 nitroglycerin 0.4 mg Tablet, Sublingual 0.4 mg sublingual DIRECTED PRN (Reason: Chest Pain) RF: 0 gabapentin 300 mg Capsule 300 mg PO BID RF: 0 albuterol sulfate [Ventolin HFA] 90 mcg/actuation Hfa Aerosol Inhaler 2 puff INHALATION Q4H PRN (Reason: Wheezing) RF: 0 finasteride 5 mg Tablet 5 mg PO QAM RF: 0 insulin aspart U-100 100 unit/mL (3 mL) Insulin Pen See Rx Instructions .ROUTE .COMPLEX RF: 0 Trulicity 1.5 mg/0.5 mL Pen Injector 1.5 mg SUBCUT WK RF: 0 [id number] Tablet 1 tab PO DAILY RF: 0 cholecalciferol (vitamin D3) [Vitamin D3] 50 mcg (2,000 unit) Capsule 2,000 unit PO DAILY RF: 0 Changed Tresiba FlexTouch U-200 200 unit/mL (3 mL) Insulin Pen 50 unit SUBCUT QPM Qty: 0 RF: 0 Discontinued topiramate [Topamax] 25 mg Tablet 25 mg PO BID RF: 0 warfarin 5 mg Tablet 5 mg PO DAILY RF: 0 Discharge Orders: Discharge Order (Routine); Ordered 02/02/20 Ordered By: Elvis Sen/Other Patient Handouts: Managing Type 2 Diabetes Admission Data Admit Date/Time: 01/20/20 22:38 Attending Provider: Elvis Bell Admit Provider: Ana Dong Primary Care Provider: Sadiq Michael Other Providers: Britton Sheikh ; [facility] ; Olesya Munoz [facility] Other Interventions: Discharge Summary Assessment (RN) Last Done: 02/02/20 12:18 Coding Level of Care Code D/C Day Management >30 mins Diagnoses Seizure-like activity R56.9 Abdominal pain, RLQ R10.31 Polymyositis M33.20 Rheumatoid arthritis M06.9 Rheumatoid arthritis location: unspecified site Rheumatoid factor presence: unspecified presence History of aortic valve replacement Z95.2 Interstitial lung disease J84.9 Pneumonia J18.9 Pneumonia type: due to unspecified organism Laterality: right Lung location: unspecified part of lung CAD (coronary artery disease) I25.10 Coronary Disease-Associated Artery/Lesion type: [place] artery [place] vs. transplanted heart: [place] heart Associated angina: without angina Diabetes E11.42; Z79.4 Diabetes mellitus type: type 2 Diabetes mellitus exterminator insulin use: with halfway use Diabetes mellitus complication status: with neurologic complications Diabetes mellitus complication detail: with polyneuropathy Gout M10.9 Gout site: unspecified site Gout etiology: unspecified cause Chronicity: unspecified History of gastric bypass Z98.84 Chronic headache R51 Headache type: unspecified Intractability: not intractable Candidiasis of mouth and esophagus B37.81; B37.0 Nonsustained ventricular tachycardia I47.2 PAF (paroxysmal atrial fibrillation) I48.0 History of myocarditis Z86.79 Chronic kidney disease, stage 3a N18.3 DVT prophylaxis Z29.9
== END 2020-02-02 13:15 | disposition home health service (06) | DRG 100 ==
LOC: ED 19:51 → SUATTDRO 22:38 → 2N 22:38

== ENCOUNTER 2020-03-02 08:25 | Observation (INO) ==
--- NOTE | 2020-03-02 08:50 | Emergency Department Note ---
History of Present Illness General Chief complaint: Shortness of Breath/Dyspnea Stated complaint: TROUBLE BREATHING Time Seen by Provider: 03/02/20 08:31 History of Present Illness Maximum Pain Intensity: 5 This is a 74-year-old male that presents to the emergency department via private vehicle with complaints of "trouble breathing". The patient notes that he has been hospitalized for several days since early December. He notes that he was recently discharged from [facility] this past Sunday. He notes that each day he has been experiencing more more shortness of breath and note that he has been watching his pulse ox and states that it has been dropping by few points every day now in the low 90s. He notes he has a compromised immune system at baseline. He notes a pain in the anterior chest has been ongoing for 2 to 3 days it is worse with a deep breath and cough. He notes that this feels different than previous troubles with the interstitial lung disease. He does wear oxygen at nighttime. Patient notes that the cough is nonproductive. He has been increasing frequency of duo nebs. He notes no change in taste or smell. No fevers. He is using nystatin for oral thrush currently. He notes a Covid test was -1-month ago. There is also associated sore throat. Current discomfort 09/06. Home Medications Home Medications Medication Instructions Recorded Confirmed Type Trulicity 1.5 mg SUBCUT SA 01/20/20 03/02/20 History albuterol sulfate [Ventolin HFA] 2 puff INHALATION Q4H PRN 01/20/20 03/02/20 History allopurinol 200 mg PO HS 01/20/20 03/02/20 History atorvastatin 80 mg PO HS 01/20/20 03/02/20 History azithromycin 250 mg PO .MOWEFR@QA 01/20/20 03/02/20 History cholecalciferol (vitamin D3) 2,000 unit PO HS 01/20/20 03/02/20 History [Vitamin D3] finasteride 5 mg PO QAM 01/20/20 03/02/20 History insulin aspart U-100 See Rx Instructions .ROUTE .COMPLEX 01/20/20 03/02/20 History ipratropium-albuterol 3 ml INHALATION QID PRN 01/20/20 03/02/20 History nitroglycerin 0.4 mg SUBLINGUAL DIRECTED PRN 01/20/20 03/02/20 History prednisone See Rx Instructions .ROUTE .COMPLEX 01/20/20 03/02/20 History psyllium 1 packet PO QAM 01/20/20 03/02/20 History torsemide 20 mg PO QAM 01/20/20 03/02/20 History trazodone 50 mg PO HS PRN 01/20/20 03/02/20 History bisacodyl 5 mg PO Q6H PRN #0 tab 01/30/20 03/02/20 Rx levetiracetam [Keppra] 500 mg PO BID #60 tab 01/30/20 03/02/20 Rx magnesium hydroxide [Milk of 30 ml PO Q6H PRN #0 ml 01/30/20 03/02/20 Rx Magnesia] polyethylene glycol 3350 [Miralax] 17 g PO DAILY PRN #30 ea 01/30/20 03/02/20 Rx Tresiba FlexTouch U-200 50 unit SUBCUT QPM #0 ml 02/02/20 03/02/20 Rx ztgvgud-vewvwjqxp-sizl 1 tab PO HS 02/05/20 03/02/20 History gabapentin 600 mg PO BID 30 Days #60 tab 02/11/20 03/02/20 Rx topiramate 100 mg tablet 100 mg PO BID #60 tab 02/20/20 03/02/20 Rx rimegepant 75 mg disintegrating 75 mg PO .COMPLEX 30 Days #8 tab 03/01/20 03/02/20 Rx tablet linaclotide [Linzess] 145 mcg PO QAM 03/02/20 03/02/20 History warfarin 7.5 mg PO HS 03/02/20 03/02/20 History Allergies Allergy/AdvReac Type Severity Reaction Status Date / Time Iodinated Contrast Media Allergy Severe Anaphylaxis Verified 03/02/20 10:23 shellfish derived Allergy Severe Anaphylaxis Verified 03/02/20 10:23 Tetanus Vaccines and Toxoid Allergy Unknown Unknown Verified 03/02/20 10:23 Past Med/Surg History Medical History CAD (coronary artery disease) Dehydration Diabetes HLD (hyperlipidemia) Interstitial lung disease Polymyositis Prostate cancer s/p XRT Seizure-like activity Thoracic ascending aortic aneurysm s/p repair Surgical History H/O hernia repair History of aortic valve replacement mechanical History of cholecystectomy History of fusion of cervical spine History of gastric bypass lap band History of heart artery stent History of lung biopsy 2019 History of partial nephrectomy Family History Other Coronary heart disease Rheumatoid arthritis Stroke Social History Smoking Status: Never smoker Hx Alcohol Use: No Hx Substance Use: No Preferred Language: Citizen Of [place] Communication Ability: Effective Hearing Ability: Hard of Hearing Content Coordinator Required: No Beliefs That Will Affect Care: None marital status: / Current Living Situation: Family Current Living Situation Comment: son Feels Safe at Home: Yes Assistive Devices: Walker Review of Systems A total of 10 systems reviewed and were otherwise negative Physical Exam Vital Signs Vital Signs - 24 hr 03/02/20 08:28 03/02/20 08:44 03/02/20 08:45 Temperature 36.6 C Temperature Source Oral Pulse Rate 93 H Pulse Rate from SpO2 Sensor Respiratory Rate 20 Respiratory Effort / Characteristics Short of Breath Spontaneous Respiratory Depth Normal Shallow Respiratory Pattern Regular Blood Pressure 142/85 H Blood Pressure Mean 104 Blood Pressure Position Sitting Pulse Oximetry 96 96 Oxygen Delivery Method Room Air Room Air Room Air Sepsis Recent Fever Within 48 Hours No Sepsis New/Unexplained Change in Mental Status No Sepsis Action Taken by Nursing No Action Required 03/02/20 08:58 03/02/20 08:59 03/02/20 09:00 Temperature Temperature Source Pulse Rate 87 83 Pulse Rate from SpO2 Sensor Respiratory Rate 21 20 Respiratory Effort / Characteristics Respiratory Depth Respiratory Pattern Blood Pressure Blood Pressure Mean Blood Pressure Position Pulse Oximetry 96 Oxygen Delivery Method Room Air Sepsis Recent Fever Within 48 Hours Sepsis New/Unexplained Change in Mental Status Sepsis Action Taken by Nursing 03/02/20 09:10 03/02/20 09:13 03/02/20 09:20 Temperature Temperature Source Pulse Rate 81 78 77 Pulse Rate from SpO2 Sensor 79 75 Respiratory Rate 18 19 16 Respiratory Effort / Characteristics Respiratory Depth Respiratory Pattern Blood Pressure 125/78 Blood Pressure Mean 89 Blood Pressure Position Pulse Oximetry 96 96 Oxygen Delivery Method Room Air Room Air Sepsis Recent Fever Within 48 Hours Sepsis New/Unexplained Change in Mental Status Sepsis Action Taken by Nursing 03/02/20 09:30 03/02/20 09:40 03/02/20 09:50 Temperature Temperature Source Pulse Rate 78 69 78 Pulse Rate from SpO2 Sensor 80 Respiratory Rate 15 17 19 Respiratory Effort / Characteristics Respiratory Depth Respiratory Pattern Blood Pressure Blood Pressure Mean Blood Pressure Position Pulse Oximetry 94 Oxygen Delivery Method Sepsis Recent Fever Within 48 Hours Sepsis New/Unexplained Change in Mental Status Sepsis Action Taken by Nursing 03/02/20 10:00 03/02/20 10:10 03/02/20 10:20 Temperature Temperature Source Pulse Rate 75 70 78 Pulse Rate from SpO2 Sensor 72 66 71 Respiratory Rate 20 18 21 Respiratory Effort / Characteristics Respiratory Depth Respiratory Pattern Blood Pressure 115/64 Blood Pressure Mean 81 Blood Pressure Position Pulse Oximetry 94 95 95 Oxygen Delivery Method Room Air Room Air Room Air Sepsis Recent Fever Within 48 Hours Sepsis New/Unexplained Change in Mental Status Sepsis Action Taken by Nursing VITAL SIGNS - Vital signs and nursing notes were reviewed. Stable and afebrile. GENERAL -74-year-old male appearing his stated age who is in no acute distress. Communicates well with provider and answers questions appropriately. SKIN - Without rashes. No meningeal or petechial rash. HEAD - NC/AT. EYES - PERRL with EOMI bilaterally. Sclera anicteric. EARS - No deformities of external structures noted on gross examination bilaterally. NOSE - Midline and without cyanosis. No epistaxis or purulent drainage noted. MOUTH/OROPHARYNX - Without perioral cyanosis. NECK - Neck with FROM. No nuchal rigidity. LUNGS - Chest wall symmetric without accessory muscle use, intercostals retractions, or central cyanosis. Normal vesicular breath sounds CTA B/L. No wheezes, rales, or rhonchi appreciated. CARDIAC - RRR with S1/S2. Suspect aortic valve replacement. No rubs, or gallops appreciated. EXTREMITIES - No pretibial edema present. +5/5 strength noted in UE/LE bilaterally. NEUROLOGIC - Cranial nerves II through XII grossly intact. PSYCH - A&O, and cooperates fully with examiner. Pt is very pleasant and interacts well with examiner. Course Administered Medications Discontinued Medications Sodium Chloride (Nss 1000ml) 1,000 mls @ 250 mls/hr IV .Q4H KIRSTEN Stop: 03/02/20 13:59 Last Infusion: 03/02/20 14:06 Dose: 0 mls/hr Documented by: [id number] Admin: 03/02/20 10:04 Dose: 250 mls/hr Documented by: [id number] Cefepime HCl (Maxipime) 2,000 mg in 20 mls @ 5 mls/min IV NOW STA; Protocol Stop: 03/02/20 12:06 Last Admin: 03/02/20 13:22 Dose: 5 mls/min Documented by: [id number] Vancomycin HCl 2,250 mg/ (Sodium Chloride) 545 mls @ 200 mls/hr IV NOW ONE Stop: 03/02/20 14:46 Last Admin: 03/02/20 13:21 Dose: 200 mls/hr Documented by: [id number] Medical Decision Making Laboratory Data Result diagrams: 03/02/20 09:13 03/02/20 09:13 Lab Results 03/02/20 03/02/20 03/02/20 Range/Units 09:00 09:00 09:00 WBC (4.8-10.8) K/uL RBC (4.7-6.1) M/uL Hgb (14.0-18.0) g/dL Hct (42-52) % MCV (80-100) fL MCH (25-34) pg MCHC (32-36) g/dL RDW Std Deviation (36.4-46.3) fL RDW Coeff of Lianne (11.5-14.5) % Plt Count (130-400) K/uL MPV (7.4-10.4) fL Immature Gran % (Auto) % Neut % (Auto) % Lymph % (Auto) % [place] % (Auto) % Eos % (Auto) % Baso % (Auto) % Neut # (Auto) (1.4-6.5) K/uL Lymph # (Auto) (1.2-3.4) K/uL [place] # (Auto) (0.11-0.59) K/uL Eos # (Auto) (0-0.5) K/uL Baso # (Auto) (0-0.2) K/uL Immature Gran # (Auto) (0.00-0.02) K/uL PT (9.0-12.0) Seconds INR (0.9-1.1) APTT (21.0-31.0) Seconds PTT Ratio Sodium (136-145) mmol/L Potassium (3.5-5.1) mmol/L Chloride (98-107) mmol/L Carbon Dioxide (21-32) mmol/L Anion Gap (3-11) BUN (7-18) mg/dl Creatinine (0.6-1.4) mg/dl Est Cr Clr Drug Dosing ml/min Est GFR ( Amer) Est GFR (Non-Af Amer) BUN/Creatinine Ratio (10-20) Glucose (70-99) mg/dl POC Glucose (70-99) mg/dl Lactate (0.4-2.0) mmol/L Calcium (8.5-10.1) mg/dl Magnesium (1.8-2.4) mg/dl Total Bilirubin (0.2-1) mg/dl AST (15-37) U/L ALT (12-78) U/L Alkaline Phosphatase (45-117) U/L Troponin I (0-0.045) ng/ml Total Protein (6.4-8.2) gm/dl Albumin (3.4-5.0) gm/dl Globulin (2.5-4.0) gm/dl Albumin/Globulin Ratio (0.9-2) Lipase (73-393) U/L Procalcitonin (0-0.5) ng/ml TSH (0.300-4.500) uIu/ml Urine Color Urine Appearance (Clear) Urine pH (4.5-7.5) Ur Specific [place] (1.000-1.030) Urine Protein (Negative) Urine Glucose (UA) (Negative) Urine Ketones (Negative) Urine Blood (Negative) Urine Nitrite (Negative) Urine Bilirubin (Negative) Urine Urobilinogen (Negative) Ur Leukocyte Esterase (Negative) COVID-19 Eval Order Covid19 Done at [facility] COVID-19 PCR NEGATIVE (Negative) Influ A Molecular Assay Negative (Negative) Influ B Molecular Assay Negative (Negative) 03/02/20 03/02/20 03/02/20 Range/Units 09:13 09:13 09:13 WBC 5.18 (4.8-10.8) K/uL RBC 3.95 L (4.7-6.1) M/uL Hgb 11.3 L (14.0-18.0) g/dL Hct 35.3 L (42-52) % MCV 89.4 (80-100) fL MCH 28.6 (25-34) pg MCHC 32.0 (32-36) g/dL RDW Std Deviation 55.4 H (36.4-46.3) fL RDW Coeff of Lianne 16.9 H (11.5-14.5) % Plt Count 124 L (130-400) K/uL MPV 9.8 (7.4-10.4) fL Immature Gran % (Auto) 1.5 % Neut % (Auto) 80.1 % Lymph % (Auto) 13.5 % [place] % (Auto) 4.1 % Eos % (Auto) 0.6 % Baso % (Auto) 0.2 % Neut # (Auto) 4.15 (1.4-6.5) K/uL Lymph # (Auto) 0.70 L (1.2-3.4) K/uL [place] # (Auto) 0.21 (0.11-0.59) K/uL Eos # (Auto) 0.03 (0-0.5) K/uL Baso # (Auto) 0.01 (0-0.2) K/uL Immature Gran # (Auto) 0.08 H (0.00-0.02) K/uL PT 27.0 H (9.0-12.0) Seconds INR 2.7 H (0.9-1.1) APTT 32.7 H (21.0-31.0) Seconds PTT Ratio 1.2 Sodium 141 (136-145) mmol/L Potassium 3.6 (3.5-5.1) mmol/L Chloride 111 H (98-107) mmol/L Carbon Dioxide 25 (21-32) mmol/L Anion Gap 5.0 (3-11) BUN 40 H (7-18) mg/dl Creatinine 1.52 H (0.6-1.4) mg/dl Est Cr Clr Drug Dosing 55.5 ml/min Est GFR ( Amer) 51.6 Est GFR (Non-Af Amer) 44.5 BUN/Creatinine Ratio 26.4 H (10-20) Glucose 254 H (70-99) mg/dl POC Glucose (70-99) mg/dl Lactate (0.4-2.0) mmol/L Calcium 8.8 (8.5-10.1) mg/dl Magnesium 1.9 (1.8-2.4) mg/dl Total Bilirubin 0.5 (0.2-1) mg/dl AST 48 H (15-37) U/L ALT 105 H (12-78) U/L Alkaline Phosphatase 107 (45-117) U/L Troponin I < 0.015 (0-0.045) ng/ml Total Protein 5.9 L (6.4-8.2) gm/dl Albumin 2.9 L (3.4-5.0) gm/dl Globulin 3.0 (2.5-4.0) gm/dl Albumin/Globulin Ratio 1.0 (0.9-2) Lipase 133 (73-393) U/L Procalcitonin (0-0.5) ng/ml TSH 0.813 (0.300-4.500) uIu/ml Urine Color Urine Appearance (Clear) Urine pH (4.5-7.5) Ur Specific [place] (1.000-1.030) Urine Protein (Negative) Urine Glucose (UA) (Negative) Urine Ketones (Negative) Urine Blood (Negative) Urine Nitrite (Negative) Urine Bilirubin (Negative) Urine Urobilinogen (Negative) Ur Leukocyte Esterase (Negative) COVID-19 Eval Order COVID-19 PCR (Negative) Influ A Molecular Assay (Negative) Influ B Molecular Assay (Negative) 03/02/20 03/02/20 03/02/20 Range/Units 09:13 09:20 11:12 WBC (4.8-10.8) K/uL RBC (4.7-6.1) M/uL Hgb (14.0-18.0) g/dL Hct (42-52) % MCV (80-100) fL MCH (25-34) pg MCHC (32-36) g/dL RDW Std Deviation (36.4-46.3) fL RDW Coeff of Lianne (11.5-14.5) % Plt Count (130-400) K/uL MPV (7.4-10.4) fL Immature Gran % (Auto) % Neut % (Auto) % Lymph % (Auto) % [place] % (Auto) % Eos % (Auto) % Baso % (Auto) % Neut # (Auto) (1.4-6.5) K/uL Lymph # (Auto) (1.2-3.4) K/uL [place] # (Auto) (0.11-0.59) K/uL Eos # (Auto) (0-0.5) K/uL Baso # (Auto) (0-0.2) K/uL Immature Gran # (Auto) (0.00-0.02) K/uL PT (9.0-12.0) Seconds INR (0.9-1.1) APTT (21.0-31.0) Seconds PTT Ratio Sodium (136-145) mmol/L Potassium (3.5-5.1) mmol/L Chloride (98-107) mmol/L Carbon Dioxide (21-32) mmol/L Anion Gap (3-11) BUN (7-18) mg/dl Creatinine (0.6-1.4) mg/dl Est Cr Clr Drug Dosing ml/min Est GFR ( Amer) Est GFR (Non-Af Amer) BUN/Creatinine Ratio (10-20) Glucose (70-99) mg/dl POC Glucose (70-99) mg/dl Lactate 2.5 H* 1.7 (0.4-2.0) mmol/L Calcium (8.5-10.1) mg/dl Magnesium (1.8-2.4) mg/dl Total Bilirubin (0.2-1) mg/dl AST (15-37) U/L ALT (12-78) U/L Alkaline Phosphatase (45-117) U/L Troponin I (0-0.045) ng/ml Total Protein (6.4-8.2) gm/dl Albumin (3.4-5.0) gm/dl Globulin (2.5-4.0) gm/dl Albumin/Globulin Ratio (0.9-2) Lipase (73-393) U/L Procalcitonin 0.20 (0-0.5) ng/ml TSH (0.300-4.500) uIu/ml Urine Color Urine Appearance (Clear) Urine pH (4.5-7.5) Ur Specific [place] (1.000-1.030) Urine Protein (Negative) Urine Glucose (UA) (Negative) Urine Ketones (Negative) Urine Blood (Negative) Urine Nitrite (Negative) Urine Bilirubin (Negative) Urine Urobilinogen (Negative) Ur Leukocyte Esterase (Negative) COVID-19 Eval Order COVID-19 PCR (Negative) Influ A Molecular Assay (Negative) Influ B Molecular Assay (Negative) 03/02/20 03/02/20 Range/Units 11:22 15:26 WBC (4.8-10.8) K/uL RBC (4.7-6.1) M/uL Hgb (14.0-18.0) g/dL Hct (42-52) % MCV (80-100) fL MCH (25-34) pg MCHC (32-36) g/dL RDW Std Deviation (36.4-46.3) fL RDW Coeff of Lianne (11.5-14.5) % Plt Count (130-400) K/uL MPV (7.4-10.4) fL Immature Gran % (Auto) % Neut % (Auto) % Lymph % (Auto) % [place] % (Auto) % Eos % (Auto) % Baso % (Auto) % Neut # (Auto) (1.4-6.5) K/uL Lymph # (Auto) (1.2-3.4) K/uL [place] # (Auto) (0.11-0.59) K/uL Eos # (Auto) (0-0.5) K/uL Baso # (Auto) (0-0.2) K/uL Immature Gran # (Auto) (0.00-0.02) K/uL PT (9.0-12.0) Seconds INR (0.9-1.1) APTT (21.0-31.0) Seconds PTT Ratio Sodium (136-145) mmol/L Potassium (3.5-5.1) mmol/L Chloride (98-107) mmol/L Carbon Dioxide (21-32) mmol/L Anion Gap (3-11) BUN (7-18) mg/dl Creatinine (0.6-1.4) mg/dl Est Cr Clr Drug Dosing ml/min Est GFR ( Amer) Est GFR (Non-Af Amer) BUN/Creatinine Ratio (10-20) Glucose (70-99) mg/dl POC Glucose 177 H (70-99) mg/dl Lactate (0.4-2.0) mmol/L Calcium (8.5-10.1) mg/dl Magnesium (1.8-2.4) mg/dl Total Bilirubin (0.2-1) mg/dl AST (15-37) U/L ALT (12-78) U/L Alkaline Phosphatase (45-117) U/L Troponin I (0-0.045) ng/ml Total Protein (6.4-8.2) gm/dl Albumin (3.4-5.0) gm/dl Globulin (2.5-4.0) gm/dl Albumin/Globulin Ratio (0.9-2) Lipase (73-393) U/L Procalcitonin (0-0.5) ng/ml TSH (0.300-4.500) uIu/ml Urine Color Yellow Urine Appearance Clear (Clear) Urine pH 5.0 (4.5-7.5) Ur Specific [place] 1.014 (1.000-1.030) Urine Protein Negative (Negative) Urine Glucose (UA) Negative (Negative) Urine Ketones Negative (Negative) Urine Blood Negative (Negative) Urine Nitrite Negative (Negative) Urine Bilirubin Negative (Negative) Urine Urobilinogen Negative (Negative) Ur Leukocyte Esterase Negative (Negative) COVID-19 Eval Order COVID-19 PCR (Negative) Influ A Molecular Assay (Negative) Influ B Molecular Assay (Negative) Imaging Data Radiologist's Impression: XR chest 1V portable HISTORY: Atypical chest pain, dyspnea COMPARISON: Chest 01/23/2020. FINDINGS: No pneumothorax. No pleural effusions. The heart remains enlarged. Suture material within the left lung base. No new focal lung consolidations to suggest pneumonia. No evidence for pulmonary edema. There are poststernotomy changes and an aortic valve prosthesis. Possible 1 cm nodule within the base of the right lower lobe. This could be due to focal areas of scarring as seen on a 01/25/[address] Partially visualized gastric lap band. IMPRESSION: 1. Stable cardiomegaly. 2. No acute process within the chest. 2. Questionable 1 cm nodule within the right lung base. Follow-up nonemergent chest CT is recommended for further evaluation. ACT 112: Negative or not required by law. Electronically signed by: Jc Che M.D. 03/02/2020 9:[address] OF THE CHEST WITHOUT IV CONTRAST CLINICAL HISTORY: chest pain, dyspnea COMPARISON STUDY: Chest radiographs January 23, 2020 and March 02, 2020 CT DOSE: 728.39 mGycm TECHNIQUE: Axial images of the chest were obtained without IV contrast. Images were reviewed in the axial, sagittal, and coronal planes. IV contrast was not administered for this examination. Automated exposure control was utilized for the study. A dose lowering technique was utilized adhering to the principles of ALARA. FINDINGS: Median sternotomy wires are noted. There is a prosthetic aortic valve. Ascending aorta is ectatic, measuring 4.2 cm. Note is made of moderate cardiomegaly. There is no pericardial effusion. No enlarged axillary, mediastinal or hilar lymph nodes are present. Postoperative findings within the left lower lobe are noted. Subpleural right lower lung opacity favors scarring. Moderate lower lung predominant centrilobular and groundglass nodules are noted. These have increased when compared to abdominal CT of January 25, 2020. There is no nodule to correspond to the possible finding on chest radiograph performed earlier today. This was artifactual. Note is made of a 6 mm right upper lobe nodule on image 127 of 326. No suspicious lesions within the bony thorax are noted. Gastric lap band is in place. IMPRESSION: 1. Increase in lower lung predominant centrilobular and groundglass nodules since abdominal CT of January 25, 2020. This favors an infectious process. 2. No right lung nodule to correspond to the possible finding on chest radiograph. This was artifactual. 3. Low suspicion 6 mm right upper lobe pulmonary nodule. This is likely benign. A follow up chest CT in 6 months to ensure stability is recommended. 4. Moderate cardiomegaly. Ectatic ascending aorta, measuring 4.2 cm ACT 112: Negative or not required by law. Electronically signed by: John Paul Drummond M.D. 03/02/2020 11:58 AM [facility] Narrative Patient was seen and evaluated as above in room C06. Review was performed of nursing notes and vital signs. I did review pertinent previous visits and patient history. After obtaining a thorough history and physical examination the above work up was performed. Patient has a complex past medical history. He presents to us today with worsening dyspnea, chest pain and cough over the past few days. EKG was obtained on presentation reveals normal sinus rhythm with sinus arrhythmia at rate of [address] elevation. QTc 414. Labs reveal no leukocytosis. Mild anemia noted. INR 2.7. BUN and creatinine are elevated. Glucose found to be elevated as well. AST and ALT also mildly elevated. Troponin is negative. Patient has a mild elevated lactic and was gently hydrated. He does not appear septic. Urinalysis reveals no UTI. Covid testing negative. Influenza testing negative. Benefit versus risk of advanced imaging was discussed with the patient as well as the attending physician and decision was made to obtain a CT scan of the chest. There is increase in lower lung predominant central lobar and groundglass nodules since abdominal CT of Dec favoring infectious process. Patient does have a curb 65 score of 2 placing him in the moderate risk group. With the patient's past medical history, presenting now with chest pain, shortness of breath with the CT scan finding as noted above I do believe that further evaluation and management in the inpatient setting is warranted. Discussed options with the attending physician as well as the patient and shows cefepime as well as IV vancomycin. Case discussed with hospitalist. Please refer to further documentation regarding his stay. An order was placed for continuous cardiac monitoring. The monitor shows a rate of 76 with sinus rhythm. I attest that I have personally reviewed the patient medication list. GCS: 15 In the evaluation and treatment of this patient, the following differential diagnoses were considered: RI, ASC, Dysrhythmia, Angina, Mediastinitis, GERD, Esophagitis, PE, Pneumonia, Bronchitis, COVID-19, costochondritis, Rib Fracture, Zoster, among others. Impression & Plan Chest pain, Pneumonia, Shortness of breath Discharge Plan Visit Data Chief Complaint: Shortness of Breath/Dyspnea Stated Complaint: TROUBLE BREATHING ED Provider: [facility] ED Midlevel Provider: Ronnell Hua Discharge Problem: Chest pain, Pneumonia, Shortness of breath Patient Disposition: Admitted As Inpatient Condition: Good Forms Stand Alone Forms: My [facility] iAgree Prescriptions Prescriptions: No Action Nurtec ODT 75 mg tablet,disintegrating 75 mg PO .COMPLEX 30 Days Qty: 8 RF: 3 topiramate 100 mg tablet 100 mg PO BID Qty: 60 RF: 2 warfarin 7.5 mg tablet 7.5 mg PO HS RF: 0 Linzess 145 mcg capsule 145 mcg PO QAM RF: 0 atorvastatin 80 mg Tablet 80 mg PO HS RF: 0 ipratropium-albuterol 0.5 mg-3 mg(2.5 mg base)/3 mL Solution For Nebulization 3 ml INHALATION QID PRN (Reason: Shortness Of Breath Or Wheezing) RF: 0 torsemide 20 mg Tablet 20 mg PO QAM RF: 0 trazodone 50 mg Tablet 50 mg PO HS PRN (Reason: Sleep) RF: 0 azithromycin 250 mg Tablet 250 mg PO .MOWEFR@QAM RF: 0 psyllium Packet 1 packet PO QAM RF: 0 prednisone 5 mg Tablet See Rx Instructions .ROUTE .COMPLEX RF: 0 allopurinol 100 mg Tablet 200 mg PO HS RF: 0 nitroglycerin 0.4 mg Tablet, Sublingual 0.4 mg sublingual DIRECTED PRN (Reason: Chest Pain) RF: 0 albuterol sulfate [Ventolin HFA] 90 mcg/actuation Hfa Aerosol Inhaler 2 puff INHALATION Q4H PRN (Reason: Wheezing) RF: 0 finasteride 5 mg Tablet 5 mg PO QAM RF: 0 insulin aspart U-100 100 unit/mL (3 mL) Insulin Pen See Rx Instructions .ROUTE .COMPLEX RF: 0 Trulicity 1.5 mg/0.5 mL Pen Injector 1.5 mg SUBCUT SA RF: 0 cholecalciferol (vitamin D3) [Vitamin D3] 50 mcg (2,000 unit) Capsule 2,000 unit PO HS RF: 0 polyethylene glycol 3350 [Miralax] 17 gram Powder In Packet 17 g PO DAILY PRN (Reason: constipation) Qty: 30 RF: 0 levetiracetam [Keppra] 500 mg Tablet 500 mg PO BID Qty: 60 RF: 0 magnesium hydroxide [Milk of Magnesia] 400 mg/5 mL Suspension 30 ml PO Q6H PRNQty: 0 RF: 0 bisacodyl 5 mg Tablet,Delayed Release (Dr/Ec) 5 mg PO Q6H PRNQty: 0 RF: 0 Tresiba FlexTouch U-200 200 unit/mL (3 mL) Insulin Pen 50 unit SUBCUT QPM Qty: 0 RF: 0 pwdtyza-ikytpdunr-vakm 333-133-5 mg Tablet 1 tab PO HS RF: 0 gabapentin 600 mg Tablet 600 mg PO BID 30 Days Qty: 60 RF: 2 Referrals Referrals: Sadiq Michael MD [Primary Care Provider] -
[2020-03-02 09:33] LABS: Basophils # (auto) 0.01 K/uL (0-0.2); Basophils % (auto) 0.2 %; Eosinophils # (auto) 0.03 K/uL (0-0.5); Eosinophils % (auto) 0.6 %; Hematocrit (blood only) 35.3 % (42-52); Hemoglobin 11.3 g/dL (14.0-18.0); Immature Granulocytes # (auto) 0.08 K/uL (0.00-0.02); Immature Granulocytes % (auto) 1.5 %; Lymphocytes % (auto) 13.5 %; Mean Corpuscular Hemoglobin 28.6 pg (25-34); Mean Corpuscular Volume 89.4 fL (80-100); Mean Platelet Volume 9.8 fL (7.4-10.4); Monocytes # (auto) 0.21 K/uL (0.11-0.59); Monocytes % (auto) 4.1 %; Neutrophils # (auto) 4.15 K/uL (1.4-6.5); Neutrophils % (auto) 80.1 %; Platelet Count 124 K/uL (130-400); RDW Coefficient of Variation 16.9 % (11.5-14.5); RDW Standard Deviation 55.4 fL (36.4-46.3); Red Blood Count 3.95 M/uL (4.7-6.1); White Blood Count 5.18 K/uL (4.8-10.8)
--- NOTE | 2020-03-02 09:33 | XRay Report ---
XR chest 1V portable HISTORY: Atypical chest pain, dyspnea COMPARISON: Chest 01/23/2020. FINDINGS: No pneumothorax. No pleural effusions. The heart remains enlarged. Suture material within t he left lung base. No new focal lung consolidations to suggest pneumonia. No evidence for pulmonary e denny. There are poststernotomy changes and an aortic valve prosthesis. Possible 1 cm nodule within th e base of the right lower lobe. This could be due to focal areas of scarring as seen on a 01/25/[address] a [address] and pelvis CT. Partially visualized gastric lap band. IMPRESSION: 1. Stable cardiomegaly. 2. No acute process within the chest. 2. Questionable 1 cm nodule within the right lung base. Follow-up nonemergent chest CT is recommended for further evaluation. ACT 112: Negative or not required by law. Electronically signed by: Jc Che M.D. 03/02/2020 9:32 AM
[2020-03-02 09:40] LABS: INR 2.7 (0.9-1.1); Partial Thromboplastin Ratio 1.2; Partial Thromboplastin Time 32.7 Seconds (21.0-31.0)
[2020-03-02 09:48] LABS: Influenza A virus by PCR Negative (Negative); Influenza B virus by PCR Negative (Negative)
[2020-03-02 09:54] LABS: Alanine Aminotransferase 105 U/L (12-78); Albumin Level 2.9 gm/dl (3.4-5.0); Aspartate Aminotransferase 48 U/L (15-37); BUN Creatinine Ratio 26.4 (10-20); Blood Urea Nitrogen 40 mg/dl (7-18); Calcium 8.8 mg/dl (8.5-10.1); Carbon Dioxide 25 mmol/L (21-32); Chloride 111 mmol/L (98-107); Creatinine Clr Calc Pharmacy 55.5 ml/min; Est GFR (African American) 51.6; Est GFR (Non-African American) 44.5; Glucose 254 mg/dl (70-99); Lipase 133 U/L (73-393); Magnesium 1.9 mg/dl (1.8-2.4); Potassium 3.6 mmol/L (3.5-5.1); Sodium 141 mmol/L (136-145)
[2020-03-02] MEDS ORDERED: SODIUM CHLORIDE 0.9% 1000ML 1,000 ML IV SCH (10:00)
[2020-03-02 10:05] LABS: Alkaline Phosphatase 107 U/L (45-117); Bilirubin,Total 0.5 mg/dl (0.2-1); Thyroid Stimulating Hormone 0.813 uIu/ml (0.300-4.500); Total Protein 5.9 gm/dl (6.4-8.2); Troponin I < 0.015 ng/ml (0-0.045)
[2020-03-02 11:32] LABS: Appearance Urine Clear (Clear); Bilirubin Urine Negative (Negative); Blood Urine Negative (Negative); Color Urine Yellow; Glucose Urine UA Negative (Negative); Ketones Urine Negative (Negative); Leukocyte Esterase Urine Negative (Negative); Nitrite Urine Negative (Negative); Protein Urine Negative (Negative); Specific Gravity Urine 1.014 (1.000-1.030); Urobilinogen Urine Negative (Negative)
--- NOTE | 2020-03-02 11:59 | CT Scan Report ---
CT OF THE CHEST WITHOUT IV CONTRAST CLINICAL HISTORY: chest pain, dyspnea COMPARISON STUDY: Chest radiographs January 23, 2020 and March 02, 2020 CT DOSE: 728.39 mGycm TECHNIQUE: Axial images of the chest were obtained without IV contrast. Images were reviewed in the axial, sagittal, and coronal planes. IV contrast was not administered for this examination. Automat ed exposure control was utilized for the study. A dose lowering technique was utilized adhering to t he principles of ALARA. FINDINGS: Median sternotomy wires are noted. There is a prosthetic aortic valve. Ascending aorta is ectatic, measuring 4.2 cm. Note is made of moderate cardiomegaly. There is no pericardial effusion. N o enlarged axillary, mediastinal or hilar lymph nodes are present. Postoperative findings within the left lower lobe are noted. Subpleural right lower lung opacity favors scarring. Moderate lower lung p redominant centrilobular and groundglass nodules are noted. These have increased when compared to abd ominal CT of January 25, 2020. There is no nodule to correspond to the possible finding on chest ra diograph performed earlier today. This was artifactual. Note is made of a 6 mm right upper lobe nodul e on image 127 of 326. No suspicious lesions within the bony thorax are noted. Gastric lap band is in place. IMPRESSION: 1. Increase in lower lung predominant centrilobular and groundglass nodules since abdominal CT of Dec. This favors an infectious process. 2. No right lung nodule to correspond to the possible finding on chest radiograph. This was artifactu al. 3. Low suspicion 6 mm right upper lobe pulmonary nodule. This is likely benign. A follow up chest CT in 6 months to ensure stability is recommended. 4. Moderate cardiomegaly. Ectatic ascending aorta, measuring 4.2 cm ACT 112: Negative or not required by law. Electronically signed by: John Paul Drummond M.D. 03/02/2020 11:58 AM
[2020-03-02] MEDS ORDERED: CEFEPIME 2,000 MG/20 ML VIAL IV STA (12:03)
[2020-03-02] MEDS ORDERED: VANCOMYCIN CONSULT ACTIVE PRN (12:03)
[2020-03-02] MEDS ORDERED: VANCOMYCIN HCL 2,250 MG in SODIUM CHLORIDE 0.9% 500 ML IV ONE (12:03)
--- NOTE | 2020-03-02 12:49 | Electrocardiogram Report ---
Test Reason : Blood Pressure : / mmHG Vent. Rate : 076 BPM Atrial Rate : 076 BPM P-R Int : 136 ms QRS Dur : 082 ms QT Int : 368 ms P-R-T Axes : 034 053 080 degrees QTc Int : 414 ms Normal sinus rhythm with sinus arrhythmia Nonspecific T wave abnormality Abnormal ECG When compared with ECG of 05-FEB-2020 14:54, No significant change was found Confirmed by Cody Soto ([id number]) on 03/02/2020 12:49:13 PM Referred By: Confirmed By:Wyatt Soto
--- NOTE | 2020-03-02 13:37 | History & Physical Report ---
Date of Service March 02, 2020 Assessment & Plan (1) Pneumonia: Will admit to medical Patient has increased size nodules in lung. appear infectious. will place on vanco and cefepime. will monitor, (2) Chronic kidney disease, stage 3a: Acute on chronic kidney disease. creatinine is 1.5, close to baseline. will monitor. (3) HLD (hyperlipidemia): will resume home meds and will monitor. (4) Interstitial lung disease: continue nebs as needed (5) CAD (coronary artery disease): Continue atorvastatin. - Patient is not on ASA, ALMA-inhibitor or BB (states he cannot tolerate beta- blockers). (6) Migraine: chronic will monitor (7) PAF (paroxysmal atrial fibrillation): rate controlled. continue coumadin. INR therapuetic History of Present Illness Chief Complaint: SOB This is a 74 yo male who arrives to the ER complaining of SOB. He reports being recently discharged from [facility]. He reports having a non productive cough for 5-6 days. Pain in his chest for 4 days, and has required rescue inhalers for past 3 days. He reports that each passing day he feels more SOB and is now requiring 2 duoneb treatments and 4 rescue inhaler doses. While in the ER, CT scan of chest showed larger nodules which may be infectious, patient will be admitted for PNA (nosocomial) Allergies Allergy/AdvReac Type Severity Reaction Status Date / Time Iodinated Contrast Media Allergy Severe Anaphylaxis Verified 03/02/20 10:23 shellfish derived Allergy Severe Anaphylaxis Verified 03/02/20 10:23 Tetanus Vaccines and Toxoid Allergy Unknown Unknown Verified 03/02/20 10:23 Home Medications Home Medications Medication Instructions Recorded Confirmed Type Trulicity 1.5 mg SUBCUT SA 01/20/20 03/02/20 History albuterol sulfate [Ventolin HFA] 2 puff INHALATION Q4H PRN 01/20/20 03/02/20 History allopurinol 200 mg PO HS 01/20/20 03/02/20 History atorvastatin 80 mg PO HS 01/20/20 03/02/20 History azithromycin 250 mg PO .MOWEFR@QA 01/20/20 03/02/20 History cholecalciferol (vitamin D3) 2,000 unit PO HS 01/20/20 03/02/20 History [Vitamin D3] finasteride 5 mg PO QAM 01/20/20 03/02/20 History insulin aspart U-100 See Rx Instructions .ROUTE .COMPLEX 01/20/20 03/02/20 History ipratropium-albuterol 3 ml INHALATION QID PRN 01/20/20 03/02/20 History nitroglycerin 0.4 mg SUBLINGUAL DIRECTED PRN 01/20/20 03/02/20 History prednisone See Rx Instructions .ROUTE .COMPLEX 01/20/20 03/02/20 History psyllium 1 packet PO QAM 01/20/20 03/02/20 History torsemide 20 mg PO QAM 01/20/20 03/02/20 History trazodone 50 mg PO HS PRN 01/20/20 03/02/20 History bisacodyl 5 mg PO Q6H PRN #0 tab 01/30/20 03/02/20 Rx levetiracetam [Keppra] 500 mg PO BID #60 tab 01/30/20 03/02/20 Rx magnesium hydroxide [Milk of 30 ml PO Q6H PRN #0 ml 01/30/20 03/02/20 Rx Magnesia] polyethylene glycol 3350 [Miralax] 17 g PO DAILY PRN #30 ea 01/30/20 03/02/20 Rx Tresiba FlexTouch U-200 50 unit SUBCUT QPM #0 ml 02/02/20 03/02/20 Rx sajwoto-ojuuklnhh-hvwz 1 tab PO HS 02/05/20 03/02/20 History gabapentin 600 mg PO BID 30 Days #60 tab 02/11/20 03/02/20 Rx topiramate 100 mg tablet 100 mg PO BID #60 tab 02/20/20 03/02/20 Rx rimegepant 75 mg disintegrating 75 mg PO .COMPLEX 30 Days #8 tab 03/01/20 03/02/20 Rx tablet linaclotide [Linzess] 145 mcg PO QAM 03/02/20 03/02/20 History warfarin 7.5 mg PO HS 03/02/20 03/02/20 History Past Med/Surg History Medical History CAD (coronary artery disease) Dehydration Diabetes HLD (hyperlipidemia) Interstitial lung disease Polymyositis Prostate cancer s/p XRT Seizure-like activity Thoracic ascending aortic aneurysm s/p repair Surgical History H/O hernia repair History of aortic valve replacement mechanical History of cholecystectomy History of fusion of cervical spine History of gastric bypass lap band History of heart artery stent History of lung biopsy 2019 History of partial nephrectomy Family History Other Coronary heart disease Rheumatoid arthritis Stroke Social History Smoking Status: Never smoker Second Hand Exposure: No; Do You Dip or Chew Tobacco: No; Tobacco Cessation Education Requested by Patient: No Hx Alcohol Use: No Hx Substance Use: No Preferred Language: Spanish Communication Ability: Effective Hearing Ability: Hard of Hearing 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 Beliefs That Will Affect Care: None marital status: / Current Living Situation: Family Current Living Situation Comment: son Other Information That Helps Us Care for You: No Feels Safe at Home: Yes Safety Concerns: Feels Safe At This Time Assistive Devices: Walker Review of Systems Constitutional: + malaise; no sweats Eyes: no diplopia Ear, Nose, Mouth, Throat: no ear trauma Respiratory: + cough and + dyspnea Cardiovascular: no chest pain Gastrointestinal: no bloating and no nausea Genitourinary: no urinary frequency Musculoskeletal: no radicular pain Integumentary: no rash Neurologic: no falls Psychiatric: no hopelessness Endocrine: no polydipsia Hematologic / Lymphatic: no coagulopathy Physical Exam Physical Exam: The patient lying in bed in no acute distress. Vital signs as documented. Head exam is normocephalic atraumatic no scleral icterus Neck is without JVD, thyromegaly, or carotid bruits. Lungs: decreased breath sounds, no wheezing or rhonchi or rales heard. Cardiac exam, Rhythm is regular.. No murmur was heard Abdominal exam reveals normal bowel sounds, soft bilateral lower quadrant tenderness no rebound no guarding Extremities are nonedematous and both pedal pulses are present Neurologic exam is alert and oriented, no focal loss of strength or sensation Skin is without bruises or rashes Psychologically is without concerns for anxiety or depression. Results & Data Results & Data ([facility]) Vital Signs (Past 12 Hours) Vital Signs Temp Pulse Resp BP Pulse Ox 03/02/20 10:20 78 21 115/64 95 03/02/20 10:10 70 18 95 03/02/20 10:00 75 20 94 03/02/20 09:50 78 19 94 03/02/20 09:40 69 17 03/02/20 09:30 78 15 03/02/20 09:20 77 16 96 03/02/20 09:13 78 19 125/78 96 03/02/20 09:10 81 18 03/02/20 09:00 83 20 03/02/20 08:59 87 21 03/02/20 08:58 96 03/02/20 08:44 96 03/02/20 08:28 36.6 C 93 H 20 142/85 H 96 PG Care Time/CCT Total # of Minutes Spent Total Time Spent with Patient: Total time spent is greater than 50% in coordination of care (as documented) at patient's floor/unit and/or counseling patient: Coding Level of Care Code 42105 Initial Inpt Care Lvl 3 Diagnoses Pneumonia J18.9 Chronic kidney disease, stage 3a N18.3 HLD (hyperlipidemia) E78.2 Hyperlipidemia type: mixed hyperlipidemia Interstitial lung disease J84.9 CAD (coronary artery disease) I25.10 Coronary Disease-Associated Artery/Lesion type: [place] artery [place] vs. transplanted heart: [place] heart Associated angina: without angina Migraine G43.909 PAF (paroxysmal atrial fibrillation) I48.0 Time Spent (min) 55 (1) HLD (hyperlipidemia) Hyperlipidemia type: mixed hyperlipidemia Qualified Code(s): E78.2 - Mixed hyperlipidemia (2) CAD (coronary artery disease) Coronary Disease-Associated Artery/Lesion type: [place] artery [place] vs. transplanted heart: [place] heart Associated angina: without angina Qualified Code(s): I25.10 - Atherosclerotic heart disease of [place] coronary artery without angina pectoris
[2020-03-02] MEDS ORDERED: NITROGLYCERIN SL 0.4 MG/TAB TAB SL PRN (13:42)
[2020-03-02] MEDS ORDERED: PHARMACY GLYCEMIC MGMT CONSULT PRN (19:11)
[2020-03-02] MEDS ORDERED: GLUCOSE 40% GEL 15 GM TUBE PO PRN (19:15)
[2020-03-02] MEDS ORDERED: GLUCAGON FOR INJ 1 MG VIAL IM PRN (19:15)
[2020-03-02] MEDS ORDERED: GLUCOSE 10 TABS/TUBE PO PRN (19:15)
[2020-03-02] MEDS ORDERED: DEXTROSE 50% 50 ML SYRINGE IV PRN (19:15)
[2020-03-02] MEDS ORDERED: INSULIN ASPART 100 UNITS/ML 3 ML PEN SC SCH (19:30)
[2020-03-02] MEDS: INSULIN ASPART 100 UNITS/ML 3 ML PEN SC SCH (20:06)
[2020-03-02] MEDS: WARFARIN SOD 7.5 MG TAB PO SCH (20:08)
[2020-03-02] MEDS: levETIRAcetam 500 MG TAB PO SCH (20:09)
[2020-03-02] MEDS: GABAPENTIN 600 MG TAB PO SCH (20:10)
[2020-03-02] MEDS: ATORVASTATIN 40 MG TAB PO SCH (20:11)
[2020-03-02] MEDS: TOPIRAMATE 100 MG TAB PO SCH (20:11)
[2020-03-02] MEDS: CHOLECALCIFEROL 1,000 UNITS 25 MCG TAB PO SCH (20:12)
[2020-03-02] MEDS: allopurinoL 100 MG TAB PO SCH (20:12)
[2020-03-02] MEDS ORDERED: ALBUT/IPRATROP 3MG/0.5MG NEB 3 ML VIAL NEB STA (20:31)
[2020-03-02] MEDS ORDERED: predniSONE 5 MG TAB PO SCH (21:00)
[2020-03-02] MEDS ORDERED: NON-FORMULARY MEDICATION (Insulin Degludec [Tresiba Flextouch U-200] 200 unit/mL (3 mL) In SQ SCH (21:00)
--- NOTE | 2020-03-02 21:01 | Pharmacy Report ---
Glycemic Control Consultation - Date of Service March 02, 2020 - Scope Scope: Glycemic Pharmacist consulted for glycemic control and to write orders per [facility] inpatient glycemic control protocol. - Objective Weight: 109.5 kg Accuchecks BSG (last 24hrs): 03/02/20 03/02/20 03/02/20 09:13 15:26 19:25 Glucose 254 H POC Glucose 177 H 183 H Laboratory Data (last 24hrs): 03/02/20 09:13 Potassium 3.6 Carbon Dioxide 25 Anion Gap 5.0 Creatinine 1.52 H Est Cr Clr Drug Dosing 55.5 - Recent Pertinent Medications Outpatient Anti-diabetic Regimen: * Tresiba 50 units SC BID * Novolog sliding scale TIDM * Trulicity 1.5 mg SC on Saturdays * Of note: patient is on chronic prednisone 10 mg PO qAM and 5 mg PO qPM * A1c = 7.4 % (02/06/20) - Assessment & Plan Assessment & Plan: ASSESSMENT: * DB is a 74 year old male presented to [facility] ED on evening of 03/02 with increasing shortness of breath * BSG at time of admission is 183 mg/dL * Per interview with patient: he did take 50 units of Tresiba this morning. Home doses also confirmed. * Per recent admission data, fasting BSGs well-controlled with ~50 units of basal insulin * Will hold off on more basal insulin today and manage with Novolog this evening (patient agreeable to this plan) * Patient has history of interstitial lung disease - on chronic prednisone 10 mg PO qAM and 5 mg PO qPM PLAN FOR INPATIENT GLYCEMIC CONTROL: * Basal insulin * Tresiba 50 units SC x 1 this morning prior to admission * Reassess basal insulin in AM * Bolus insulin * NovoLog per scale ACHS or Q6hrs while NPO * Goal Range: Low 110 mg/dL - High 140 mg/dL * Correction Factor: 10 mg/dL/unit * Nutritional / Prandial insulin per carb ratio of 1 unit per 3 grams CHO consumed * Please note that the plan above was derived based on current level of insulin resistance and hospital stress. These recommendations are appropriate for inpatient admission only. Plan of care upon discharge will need to be reassessed to avoid potential outpatient hypo/hyperglycemia. Thank you.
[2020-03-02] MEDS ORDERED: bisacodyL 10 MG SUPP PR PRN (21:02)
[2020-03-03] MEDS ORDERED: INSULIN ASPART 100 UNITS/ML 3 ML PEN SC SCH
[2020-03-03] MEDS: LINZESS - ORDER AWAITING ACTION SCH ×2 (00:10→08:16)
[2020-03-03] MEDS: ACETAMINOPHEN 325 MG TAB PO PRN ×3 (03:17→19:40)
[2020-03-03 07:39] LABS: INR 2.5 (0.9-1.1); Prothrombin Time 24.9 Seconds (9.0-12.0)
[2020-03-03 07:56] LABS: BUN Creatinine Ratio 24.7 (10-20); Calcium 8.5 mg/dl (8.5-10.1); Creatinine Clr Calc Pharmacy 62.7 ml/min; Est GFR (African American) 62.3; Est GFR (Non-African American) 53.8; Potassium 3.9 mmol/L (3.5-5.1)
[2020-03-03] MEDS: INSULIN ASPART 100 UNITS/ML 3 ML PEN SC SCH ×4 (08:15→20:30)
[2020-03-03] MEDS: TOPIRAMATE 100 MG TAB PO SCH ×2 (08:15→19:42)
[2020-03-03] MEDS: GABAPENTIN 600 MG TAB PO SCH ×2 (08:16→19:42)
[2020-03-03] MEDS: levETIRAcetam 500 MG TAB PO SCH ×2 (08:16→19:43)
[2020-03-03] MEDS: TORSEMIDE 20 MG TAB PO SCH (08:16)
[2020-03-03] MEDS: FINASTERIDE 5 MG TAB PO SCH (08:16)
[2020-03-03] MEDS: VANCOMYCIN HCL 1,750 MG in SODIUM CHLORIDE 0.9% 500 ML IV SCH (08:23)
[2020-03-03 08:28] LABS: Basophils # (auto) 0.01 K/uL (0-0.2); Basophils % (auto) 0.3 %; Eosinophils # (auto) 0.05 K/uL (0-0.5); Eosinophils % (auto) 1.3 %; Hematocrit (blood only) 31.9 % (42-52); Hemoglobin 10.2 g/dL (14.0-18.0); Immature Granulocytes % (auto) 2.5 %; Lymphocytes # (auto) 0.71 K/uL (1.2-3.4); Lymphocytes % (auto) 17.9 %; Mean Corpuscular Hemoglobin 28.9 pg (25-34); Mean Corpuscular Volume 90.4 fL (80-100); Mean Platelet Volume 9.5 fL (7.4-10.4); Monocytes # (auto) 0.16 K/uL (0.11-0.59); Neutrophils # (auto) 2.93 K/uL (1.4-6.5); Platelet Count 123 K/uL (130-400); RDW Coefficient of Variation 17.2 % (11.5-14.5); RDW Standard Deviation 56.2 fL (36.4-46.3); Red Blood Count 3.53 M/uL (4.7-6.1); White Blood Count 3.96 K/uL (4.8-10.8)
[2020-03-03] MEDS ORDERED: INSULIN GLARGINE SOLOSTAR 100 UNITS/ML 3 ML PEN SC ONE ×2 (08:30→21:00)
[2020-03-03] MEDS: ALBUT/IPRATROP 3MG/0.5MG NEB 3 ML VIAL NEB PRN ×2 (08:30→19:54)
--- NOTE | 2020-03-03 08:48 | Hospitalist Progress Note ---
Date of Service March 03, 2020 Assessment & Plan (1) Pneumonia: Patient has abnormal CT chest was placed on vanco and cefepime. will check a procalcitionin and a biofire, given the lower wbc this maybe a viral pneumonitis and covid has been ruled out CT Chest 03/02/20 IMPRESSION: 1. Increase in lower lung predominant centrilobular and groundglass nodules since abdominal CT of January 25, 2020. This favors an infectious process. 2. No right lung nodule to correspond to the possible finding on chest radiograph. This was artifactual. 3. Low suspicion 6 mm right upper lobe pulmonary nodule. This is likely benign. A follow up chest CT in 6 months to ensure stability is recommended. 4. Moderate cardiomegaly. Ectatic ascending aorta, measuring 4.2 cm (2) Chronic kidney disease, stage 3a: Acute on chronic kidney disease. creatinine is 1.5, close to baseline. (3) Interstitial lung disease: continue nebs as needed (4) CAD (coronary artery disease): Continue atorvastatin. - Patient is not on ASA, ALMA-inhibitor or BB (states he cannot tolerate beta- blockers). (5) Migraine: chronic will monitor (6) PAF (paroxysmal atrial fibrillation): rate controlled without mediations . continue coumadin. INR therapuetic (7) Seizure-like activity: remains on keppra and topamax Admission and Anticipated Discharge Date Admission Date: March 02, 2020 Subjective Patient states he feels somewhat better. He claims to have a 7 to 10-day decline at home after being discharged from [facility] with progressive shortness of breath and self-disclosure of low oxygen levels per his home oximeter. In the room he was not coughing he is very loquacious and did not seem very short of breath when I saw him. Patient was tested for Covid and was negative on presentation is a some very mild chest x-ray and CT scan changes possibly consistent with a pulmonary infectious process Review of Systems Review of Systems: Mild distress and fatigue no headache, blurry or double vision no speech or swallowing issues no chest pain, pressure or palpitations increasing shortness of breath, occasional cough no wheezes no abdominal pain, nausea or vomiting, diarrhea or constipation no dysuria, hematuria or frequency no focal joint pain or swelling no back pain, CVA tenderness or radicular pain no bruising, bleeding or rashes no focal signs of weakness or numbness or altered sensation no complaints of anxiety or depression. Physical Exam Physical Exam: The patient appeared well nourished and normally developed. Vital signs as documented. Head exam is normocephalic atraumatic no scleral icterus Neck is without JVD, thyromegaly, or carotid bruits. Lungs are coarse at baseline Cardiac exam, Rhythm is regular.. Systolic ejection murmur Abdominal exam reveals normal bowel sounds, soft non tender, no masses Extremities are nonedematous and both pedal pulses are present Neurologic exam is alert and oriented, no focal loss of strength or sensation Skin is without bruises or rashes Psychologically is without concerns for anxiety or depression. Results & Data Results & Data ([facility]) Vital Signs (Past 12 Hours) Vital Signs Temp Pulse Resp BP Pulse Ox 03/03/20 08:30 58 L 16 96 03/03/20 07:37 97.3 F L 60 16 114/66 97 03/02/20 22:29 97.5 F L 65 16 122/72 99 03/02/20 20:46 58 L 16 98 PG Care Time/CCT Total # of Minutes Spent Total Time Spent with Patient: Total time spent is greater than 50% in coordination of care (as documented) at patient's floor/unit and/or counseling patient: Coding Level of Care Code 82200 Subseq Hosp Care Lvl 3 Diagnoses Pneumonia J18.9 Chronic kidney disease, stage 3a N18.3 Interstitial lung disease J84.9 CAD (coronary artery disease) I25.10 Associated angina: without angina Coronary Disease-Associated Artery/Lesion type: [place] artery [place] vs. transplanted heart: [place] heart Migraine G43.909 PAF (paroxysmal atrial fibrillation) I48.0 Seizure-like activity R56.9 (1) CAD (coronary artery disease) Associated angina: without angina Coronary Disease-Associated Artery/Lesion type: [place] artery [place] vs. transplanted heart: [place] heart Qualified Code(s): I25.10 - Atherosclerotic heart disease of [place] coronary artery without angina pectoris
[2020-03-03 08:49] LABS: RBC Morphology Unremarkable
[2020-03-03] MEDS ORDERED: predniSONE 10 MG TABLET PO SCH (09:00)
--- NOTE | 2020-03-03 11:17 | Pharmacy Report ---
Pharmacy Glycemic Short Note 2 - Date of Service March 03, 2020 - Glycemic Short BSG Results (Last 24 hours): 03/02/20 03/02/20 03/02/20 15:26 19:25 23:57 Glucose POC Glucose 177 H 183 H 170 H 03/03/20 03/03/20 06:51 07:51 Glucose 156 H POC Glucose 153 H Outpatient Anti-diabetic Regimen: * Tresiba 50 units SC BID * Novolog sliding scale TIDM * Trulicity 1.5 mg SC on Saturdays * Of note: patient is on chronic prednisone 10 mg PO qAM and 5 mg PO qPM * A1c = 7.4 % (02/06/20) ASSESSMENT: 03/03 * Recent admission reviewed - agree with likely need for 50 units while inpatient and on home-dose steroids. However, steroids increasing x24 hours (hydrocortisone 50 mg IV q8h) therefore will add scale for this evening for additional Lantus based on BSG * On previous admission, some post-prandial BSG's responded well to a CHO ratio of 3 g CHO/unit, but there were still multiple elevated BSG's on that ratio. Will tighten x1 with lunch (prior to start of hydrocortisone) then will tighten further at dinner (after start of hydrocortisone) * Will add two overnight checks 2nd increased steroid dose 03/02 * DB is a 74 year old male presented to [facility] ED on evening of 03/02 with increasing shortness of breath * BSG at time of admission is 183 mg/dL * Per interview with patient: he did take 50 units of Tresiba this morning. Home doses also confirmed. * Per recent admission data, fasting BSGs well-controlled with ~50 units of basal insulin * Will hold off on more basal insulin today and manage with Novolog this evening (patient agreeable to this plan) * Patient has history of interstitial lung disease - on chronic prednisone 10 mg PO qAM and 5 mg PO qPM PLAN FOR INPATIENT GLYCEMIC CONTROL: * Hold outpatient Trulicity * Basal insulin * Lantus 50 units SQ x1 then 0-20 units tonight based on BSG. See MAR for details * Bolus insulin * NovoLog per scale ACHS or Q6hrs while NPO * Goal Range: Low 110 mg/dL - High 140 mg/dL * Correction Factor: 10 mg/dL/unit * CHO ratio: 2.5 gCHO/unit at lunch then 2 gCHO/unit ongoing
[2020-03-03] MEDS: HYDROCORTISONE SOD 50 MG in SYRINGE 0 ML IV SCH ×2 (12:50→21:14)
[2020-03-03] MEDS: CEFEPIME 2,000 MG in SYRINGE 0 ML IV SCH ×2 (14:23→21:15)
[2020-03-03] MEDS: WARFARIN SOD 7.5 MG TAB PO SCH (15:43)
[2020-03-03] MEDS: CHOLECALCIFEROL 1,000 UNITS 25 MCG TAB PO SCH (19:41)
[2020-03-03] MEDS: allopurinoL 100 MG TAB PO SCH (19:41)
[2020-03-03] MEDS: ATORVASTATIN 40 MG TAB PO SCH (19:43)
[2020-03-03] MEDS ORDERED: LORazepam 2 MG/4 ML VIAL ONE (21:10)
[2020-03-03] MEDS: LORazepam 4 MG/8 ML VIAL IV PRN (21:10)
[2020-03-04] MEDS: INSULIN ASPART 100 UNITS/ML 3 ML PEN SC SCH ×6 (00:51→20:35)
[2020-03-04] MEDS ORDERED: VANCOMYCIN TROUGH ONE (01:30)
[2020-03-04 01:58] LABS: INR 2.1 (0.9-1.1); Prothrombin Time 21.4 Seconds (9.0-12.0)
[2020-03-04] MEDS: VANCOMYCIN HCL 1,750 MG in SODIUM CHLORIDE 0.9% 500 ML IV SCH (02:00)
[2020-03-04 02:05] LABS: Creatinine Clr Calc Pharmacy 64.7 ml/min; Est GFR (African American) 64.7; Est GFR (Non-African American) 55.8
[2020-03-04] MEDS: CEFEPIME 2,000 MG in SYRINGE 0 ML IV SCH ×3 (05:06→21:11)
[2020-03-04] MEDS: HYDROCORTISONE SOD 50 MG in SYRINGE 0 ML IV SCH ×2 (05:06→13:50)
[2020-03-04] MEDS: TOPIRAMATE 100 MG TAB PO SCH ×2 (08:00→20:36)
[2020-03-04] MEDS: TORSEMIDE 20 MG TAB PO SCH (08:00)
[2020-03-04] MEDS: levETIRAcetam 500 MG TAB PO SCH ×2 (08:00→20:37)
[2020-03-04] MEDS: GABAPENTIN 600 MG TAB PO SCH ×2 (08:00→20:37)
[2020-03-04] MEDS: FINASTERIDE 5 MG TAB PO SCH (08:00)
[2020-03-04] MEDS: INSULIN GLARGINE SOLOSTAR 100 UNITS/ML 3 ML PEN SC SCH (08:02)
--- NOTE | 2020-03-04 11:57 | Pharmacy Report ---
Pharmacy Glycemic Short Note 2 - Date of Service March 04, 2020 - Glycemic Short BSG Results (Last 24 hours): 03/03/20 03/03/20 03/04/20 17:09 19:52 00:45 POC Glucose 168 H 143 H 90 03/04/20 03/04/20 03/04/20 04:02 07:40 11:39 POC Glucose 145 H 149 H 230 H Outpatient Anti-diabetic Regimen: * Tresiba 50 units SC BID * Novolog sliding scale TIDM * Trulicity 1.5 mg SC on Saturdays * Of note: patient is on chronic prednisone 10 mg PO qAM and 5 mg PO qPM * A1c = 7.4 % (02/06/20) ASSESSMENT: 03/04/20: * Pt has received 146 units of insulin over the past 24hrs * 60 units of basal insulin with Lantus * 86 units of bolus insulin with NovoLog * BSGs ranging 90-230 mg/dl * Hyperglycemia secondary to steroids. Last dose of hydrocortisone scheduled for 1400 today. Then, patient to resume Prednisone 10mg daily starting tomorrow. * Will continue tightened NovoLog parameters today but not continue the stressed dose of Lantus since steroids are tapering. 03/03 * Recent admission reviewed - agree with likely need for 50 units while inpatient and on home-dose steroids. However, steroids increasing x24 hours (hydrocortisone 50 mg IV q8h) therefore will add scale for this evening for additional Lantus based on BSG * On previous admission, some post-prandial BSG's responded well to a CHO ratio of 3 g CHO/unit, but there were still multiple elevated BSG's on that ratio. Will tighten x1 with lunch (prior to start of hydrocortisone) then will tighten further at dinner (after start of hydrocortisone) * Will add two overnight checks 2nd increased steroid dose 03/02 * DB is a 74 year old male presented to [facility] ED on evening of 03/02 with increasing shortness of breath * BSG at time of admission is 183 mg/dL * Per interview with patient: he did take 50 units of Tresiba this morning. Home doses also confirmed. * Per recent admission data, fasting BSGs well-controlled with ~50 units of basal insulin * Will hold off on more basal insulin today and manage with Novolog this e vening (patient agreeable to this plan) * Patient has history of interstitial lung disease - on chronic prednisone 10 mg PO qAM and 5 mg PO qPM PLAN FOR INPATIENT GLYCEMIC CONTROL: * [facility] * Basal insulin * Decrease back to Lantus 50 units SQ daily in AM * Bolus insulin * NovoLog per scale ACHS or Q6hrs while NPO * Goal Range: Low 110 mg/dL - High 140 mg/dL * Correction Factor: 10 mg/dL/unit * CHO ratio: 1 unit for every 2 g CHO consumed
[2020-03-04] MEDS: WARFARIN SOD 7.5 MG TAB PO SCH (15:39)
[2020-03-04] MEDS: CARBOHYDRATES FOR HYPOGLYCEMIA PO PRN (16:29)
--- NOTE | 2020-03-04 17:08 | Hospitalist Progress Note ---
Date of Service March 04, 2020 Assessment & Plan (1) Pneumonia: Patient has abnormal CT chest was placed on vanco and cefepime., MRSA negative stopping vanco will check a procalcitionin and a biofire has not been collected yet, given the lower wbc this maybe a viral pneumonitis and covid has been ruled out CT Chest 03/02/20 IMPRESSION: 1. Increase in lower lung predominant centrilobular and groundglass nodules since abdominal CT of January 25, 2020. This favors an infectious process. 2. No right lung nodule to correspond to the possible finding on chest radiograph. This was artifactual. 3. Low suspicion 6 mm right upper lobe pulmonary nodule. This is likely benign. A follow up chest CT in 6 months to ensure stability is recommended. 4. Moderate cardiomegaly. Ectatic ascending aorta, measuring 4.2 cm (2) Chronic kidney disease, stage 3a: Acute on chronic kidney disease. creatinine is 1.5, close to baseline. (3) Interstitial lung disease: continue nebs as needed (4) CAD (coronary artery disease): Continue atorvastatin. - Patient is not on ASA, ALMA-inhibitor or BB (states he cannot tolerate beta- blockers). (5) Migraine: chronic will monitor, pt states has been having a headache for 10 days (6) PAF (paroxysmal atrial fibrillation): rate controlled without mediations . continue coumadin. INR remains therapuetic (7) Seizure-like activity: Pt states he did have an episode or spell last pm, remains on keppra and topamax, the pt states he is supposed to have an appointement at [facility] in the upcoming weeks Admission and Anticipated Discharge Date Admission Date: March 02, 2020 Subjective Patient states he continues to have a headache. He also reports having seizure- like activity last p.m. He states his breathing is not much better although his oximetry on room air remains above 90%. He has a nonproductive cough. His imaging did suggest possible mild basilar changes. Review of Systems Review of Systems: Mild distress and fatigue Although yesterday denying headache the patient now states he had a headache for 10 days that is bifrontal in nature circumferential nonpositional there is no associated nausea there is no associated visual changes no speech or swallowing issues no chest pain, pressure or palpitations increasing shortness of breath, occasional cough no wheezes patient feels his breathing is somewhat improved no abdominal pain, nausea or vomiting, diarrhea or constipation no dysuria, hematuria or frequency no focal joint pain or swelling no back pain, CVA tenderness or radicular pain no bruising, bleeding or rashes no focal signs of weakness or numbness or altered sensation no complaints of anxiety or depression. Physical Exam Physical Exam: The patient appeared well nourished and normally developed. He does not appear to be in significant distress at this time Vital signs as documented. Head exam is normocephalic atraumatic no scleral icterus Neck is without JVD, thyromegaly, or carotid bruits. Lungs are coarse at baseline Cardiac exam, Rhythm is regular.. Systolic ejection murmur Abdominal exam reveals normal bowel sounds, soft non tender, no masses Extremities are nonedematous and both pedal pulses are present Neurologic exam is alert and oriented, no focal loss of strength or sensation Skin is without bruises or rashes Psychologically is without concerns for anxiety or depression. Results & Data Results & Data ([facility]) Vital Signs (Past 12 Hours) Vital Signs Temp Pulse Resp BP Pulse Ox 03/04/20 15:49 97.9 F 71 18 132/84 93 03/04/20 07:30 97.5 F L 77 20 159/83 H 100 PG Care Time/CCT Total # of Minutes Spent Total Time Spent with Patient: Total time spent is greater than 50% in coordination of care (as documented) at patient's floor/unit and/or counseling patient: Coding Level of Care Code 77177 Subseq Hosp Care Lvl 3 Diagnoses Pneumonia J18.9 Chronic kidney disease, stage 3a N18.3 Interstitial lung disease J84.9 CAD (coronary artery disease) I25.10 Coronary Disease-Associated Artery/Lesion type: [place] artery [place] vs. transplanted heart: three affiliated heart Associated angina: without angina Migraine G43.909 PAF (paroxysmal atrial fibrillation) I48.0 Seizure-like activity R56.9 (1) CAD (coronary artery disease) Coronary Disease-Associated Artery/Lesion type: three [place] artery [place] vs. transplanted heart: three affiliated heart Associated angina: without angina Qualified Code(s): I25.10 - Atherosclerotic heart disease of [place] coronary artery without angina pectoris
[2020-03-04 17:22] LABS: Appearance Urine Clear (Clear); Bilirubin Urine Negative (Negative); Blood Urine Negative (Negative); Color Urine Yellow; Glucose Urine UA Negative (Negative); Ketones Urine Negative (Negative); Leukocyte Esterase Urine Negative (Negative); Nitrite Urine Negative (Negative); Protein Urine Negative (Negative); Specific Gravity Urine 1.014 (1.000-1.030); Urobilinogen Urine Negative (Negative)
[2020-03-04] MEDS: ACETAMINOPHEN 325 MG TAB PO PRN (17:56)
[2020-03-04] MEDS ORDERED: VANCOMYCIN HCL 1,500 MG in SODIUM CHLORIDE 0.9% 500 ML IV SCH (20:00)
[2020-03-04] MEDS: ALBUT/IPRATROP 3MG/0.5MG NEB 3 ML VIAL NEB PRN (20:11)
[2020-03-04] MEDS: allopurinoL 100 MG TAB PO SCH (20:36)
[2020-03-04] MEDS: ATORVASTATIN 40 MG TAB PO SCH (20:37)
[2020-03-04] MEDS: CHOLECALCIFEROL 1,000 UNITS 25 MCG TAB PO SCH (20:38)
[2020-03-04] MEDS: LORazepam 4 MG/8 ML VIAL IV PRN (21:29)
[2020-03-05] MEDS: CEFEPIME 2,000 MG in SYRINGE 0 ML IV SCH ×3 (05:16→21:06)
[2020-03-05 07:22] LABS: INR 2.7 (0.9-1.1); Prothrombin Time 27.2 Seconds (9.0-12.0)
[2020-03-05] MEDS: TOPIRAMATE 100 MG TAB PO SCH ×2 (08:03→20:58)
[2020-03-05] MEDS: levETIRAcetam 500 MG TAB PO SCH ×2 (08:03→20:56)
[2020-03-05] MEDS: GABAPENTIN 600 MG TAB PO SCH ×2 (08:03→20:57)
[2020-03-05] MEDS: TORSEMIDE 20 MG TAB PO SCH (08:04)
[2020-03-05] MEDS: FINASTERIDE 5 MG TAB PO SCH (08:04)
[2020-03-05] MEDS: predniSONE 10 MG TABLET PO SCH (08:04)
[2020-03-05] MEDS: INSULIN GLARGINE SOLOSTAR 100 UNITS/ML 3 ML PEN SC SCH (08:05)
[2020-03-05] MEDS: INSULIN ASPART 100 UNITS/ML 3 ML PEN SC SCH ×4 (08:44→21:05)
--- NOTE | 2020-03-05 09:47 | Pharmacy Report ---
Pharmacy Glycemic Short Note 2 - Date of Service March 05, 2020 - Glycemic Short BSG Results (Last 24 hours): 03/04/20 03/04/20 03/04/20 11:39 16:26 16:56 POC Glucose 230 H 60 L* 79 03/04/20 03/05/20 20:33 07:49 POC Glucose 174 H 118 H Outpatient Anti-diabetic Regimen: * Tresiba 50 units SC BID * Novolog sliding scale TIDM * Trulicity 1.5 mg SC on Saturdays * Of note: patient is on chronic prednisone 10 mg PO qAM and 5 mg PO qPM * A1c = 7.4 % (02/06/20) ASSESSMENT: 03/05: * Pt has received 120 units of insulin over the past 24hrs * 50 units of basal insulin with Lantus * 70 units of bolus insulin with NovoLog * BSGs ranging 60-230 mg/dl * Hydrocortisone IV dc yesterday and pt resuming Prednisone 10mg daily this AM * Pt with LOW BSG prior to dinner yesterday. Will loosen CHO coverage * AM fasting BSG trending downwards 153 --> 149 --> 118 mg/dl. Will loosen CF and continue 50% of outpatient basal insulin dosing. 03/04/20: * Pt has received 146 units of insulin over the past 24hrs * 60 units of basal insulin with Lantus * 86 units of bolus insulin with NovoLog * BSGs ranging 90-230 mg/dl * Hyperglycemia secondary to steroids. Last dose of hydrocortisone scheduled for 1400 today. Then, patient to resume Prednisone 10mg daily starting tomorrow. * Will continue tightened NovoLog parameters today but not continue the stressed dose of Lantus since steroids are tapering. 03/03 * Recent admission reviewed - agree with likely need for 50 units while inpatient and on home-dose steroids. However, steroids increasing x24 hours (hydrocortisone 50 mg IV q8h) therefore will add scale for this evening for additional Lantus based on BSG * On previous admission, some post-prandial BSG's responded well to a CHO ratio of 3 g CHO/unit, but there were still multiple elevated BSG's on that ratio. Will tighten x1 with lunch (prior to start of hydrocortisone) then will tighten further at dinner (after start of hydrocortisone) * Will add two overnight checks 2nd increased steroid dose 03/02 * DB is a 74 year old male presented to [facility] on evening of 03/02 with increasing shortness of breath * BSG at time of admission is 183 mg/dL * Per interview with patient: he did take 50 units of Tresiba this morning. Home doses also confirmed. * Per recent admission data, fasting BSGs well-controlled with ~50 units of basal insulin * Will hold off on more basal insulin today and manage with Novolog this evening (patient agreeable to this plan) * Patient has history of interstitial lung disease - on chronic prednisone 10 mg PO qAM and 5 mg PO qPM PLAN FOR INPATIENT GLYCEMIC CONTROL: * Hold outpatient Trulicity * Basal insulin * Lantus 50 units SQ daily in AM * Bolus insulin: loosen parameters * NovoLog per scale ACHS or Q6hrs while NPO * Goal Range: Low 110 mg/dL - High 140 mg/dL * Correction Factor: 15 mg/dL/unit * CHO ratio: 1 unit for every 2.5 g CHO consumed
[2020-03-05] MEDS: WARFARIN SOD 7.5 MG TAB PO SCH (15:49)
[2020-03-05 17:09] LABS: Adenovirus PCR Not Detected (NotDetected); Bordetella parapertussis PCR Not Detected (NotDetected); Bordetella pertussis PCR Not Detected (NotDetected); Chlamydia pneumoniae PCR Not Detected (NotDetected); Coronavirus 229E PCR Not Detected (NotDetected); Coronavirus CoV-2 (COVID19)PCR Not Detected (NotDetected); Coronavirus HKU1 PCR Not Detected (NotDetected); Coronavirus NL63 PCR Not Detected (NotDetected); Coronavirus OC43PCR Not Detected (NotDetected); Human Metapneumovirus PCR Not Detected (NotDetected); Influenza A PCR Not Detected (NotDetected); Influenza B PCR Not Detected (NotDetected); Mycoplasma pneumoniae PCR Not Detected (NotDetected); Parainfluenza Virus 1 PCR Not Detected (NotDetected); Parainfluenza Virus 2 PCR Not Detected (NotDetected); Parainfluenza Virus 3 PCR Not Detected (NotDetected); Parainfluenza Virus 4 PCR Not Detected (NotDetected); Respiratory Syncytial VirusPCR Not Detected (NotDetected); Rhinovirus/Enterovirus PCR Not Detected (NotDetected)
--- NOTE | 2020-03-05 17:51 | Hospitalist Progress Note ---
Date of Service March 05, 2020 Assessment & Plan (1) Pneumonia: Patient has abnormal CT chest was placed on vanco and cefepime., MRSA negative stopping vanco--> will complete one week 03/09/20 negative procalcitonin a nd negative biofire CT Chest 03/02/20 IMPRESSION: 1. Increase in lower lung predominant centrilobular and groundglass nodules since abdominal CT of January 25, 2020. This favors an infectious process. 2. No right lung nodule to correspond to the possible finding on chest radiograph. This was artifactual. 3. Low suspicion 6 mm right upper lobe pulmonary nodule. This is likely benign. A follow up chest CT in 6 months to ensure stability is recommended. 4. Moderate cardiomegaly. Ectatic ascending aorta, measuring 4.2 cm (2) Chronic kidney disease, stage 3a: Acute on chronic kidney disease. creatinine is 1.5, close to baseline. (3) Interstitial lung disease: continue nebs as needed (4) CAD (coronary artery disease): Continue atorvastatin. - Patient is not on ASA, ALMA-inhibitor or BB (states he cannot tolerate beta- blockers). (5) Migraine: chronic will monitor, pt states has been having a headache for 10 days, pt c/o sleep deprivation which can worsen headache and seizures will try melatonin/seroquel to see if it helps (6) PAF (paroxysmal atrial fibrillation): rate controlled without mediations . continue coumadin. INR remains therapuetic (7) Seizure-like activity: Pt states he did have an episode or spell 11/4 pm, remains on keppra and topamax, the pt states he is supposed to have an appointment at [facility] in the upcoming weeks. 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 He also reports having seizure- like activity 11/4 p.m. He states his breathing is not much better although his oximetry on room air remains above 90%. He has a nonproductive cough. Pt has now concerns that he has become deconditioned. he now continues to focus on somatic complaints Review of Systems Review of Systems: Mild distress and fatigue Although yesterday denying headache the patient now states he had a headache for 10 days that is bifrontal in nature circumferential nonpositional there is no associated nausea there is no associated visual changes no speech or swallowing issues no chest pain, pressure or palpitations increasing shortness of breath, occasional cough no wheezes patient feels his breathing is somewhat improved no abdominal pain, nausea or vomiting, diarrhea or constipation no dysuria, hematuria or frequency no focal joint pain or swelling no back pain, CVA tenderness or radicular pain no bruising, bleeding or rashes no focal signs of weakness or numbness or altered sensation no complaints of anxiety or depression. Physical Exam Physical Exam: The patient appeared well nourished and normally developed. He does not appear to be in significant distress at this time Vital signs as documented. Head exam is normocephalic atraumatic no scleral icterus Neck is without JVD, thyromegaly, or carotid bruits. Lungs are coarse at baseline Cardiac exam, Rhythm is regular.. Systolic ejection murmur Abdominal exam reveals normal bowel sounds, soft non tender, no masses Extremities are nonedematous and both pedal pulses are present Neurologic exam is alert and oriented, no focal loss of strength or sensation Skin is without bruises or rashes Psychologically is without concerns for anxiety or depression. Results & Data Results & Data ([facility]) Vital Signs (Past 12 Hours) Vital Signs Temp Pulse Resp BP BP Pulse Ox 03/05/20 16:05 97.9 F 64 18 122/79 100 03/05/20 07:33 97.5 F L 68 18 137/78 98 PG Care Time/CCT Total # of Minutes Spent Total Time Spent with Patient: Total time spent is greater than 50% in coordination of care (as documented) at patient's floor/unit and/or counseling patient: Coding Level of Care Code 17446 Subseq Hosp Care Lvl 3 Diagnoses Pneumonia J18.9 Chronic kidney disease, stage 3a N18.3 Interstitial lung disease J84.9 CAD (coronary artery disease) I25.10 Coronary Disease-Associated Artery/Lesion type: [place] artery [place] vs. transplanted heart: [place] heart Associated angina: without angina Migraine G43.909 PAF (paroxysmal atrial fibrillation) I48.0 Seizure-like activity R56.9 (1) CAD (coronary artery disease) Coronary Disease-Associated Artery/Lesion type: [place] artery [place] vs. transplanted heart: [place] heart Associated angina: without angina Qualified Code(s): I25.10 - Atherosclerotic heart disease of [place] coronary artery without angina pectoris
[2020-03-05] MEDS: ALBUT/IPRATROP 3MG/0.5MG NEB 3 ML VIAL NEB PRN (18:59)
[2020-03-05] MEDS: ATORVASTATIN 40 MG TAB PO SCH (20:57)
[2020-03-05] MEDS: CHOLECALCIFEROL 1,000 UNITS 25 MCG TAB PO SCH (20:58)
[2020-03-05] MEDS: allopurinoL 100 MG TAB PO SCH (20:58)
[2020-03-05] MEDS ORDERED: QUEtiapine FUMARATE 25 MG TABLET PO ONE (21:00)
[2020-03-05] MEDS ORDERED: MELATONIN 3 MG TAB PO ONE (21:00)
[2020-03-05] MEDS: ACETAMINOPHEN 325 MG TAB PO PRN (21:11)
[2020-03-06] MEDS: CEFEPIME 2,000 MG in SYRINGE 0 ML IV SCH ×3 (05:24→22:04)
[2020-03-06] MEDS: FINASTERIDE 5 MG TAB PO SCH (07:53)
[2020-03-06] MEDS: TORSEMIDE 20 MG TAB PO SCH (07:53)
[2020-03-06] MEDS: GABAPENTIN 600 MG TAB PO SCH ×2 (07:53→20:40)
[2020-03-06] MEDS: levETIRAcetam 500 MG TAB PO SCH ×2 (07:53→20:39)
[2020-03-06] MEDS: TOPIRAMATE 100 MG TAB PO SCH ×2 (07:53→20:38)
[2020-03-06] MEDS: predniSONE 10 MG TABLET PO SCH (07:53)
[2020-03-06] MEDS: INSULIN ASPART 100 UNITS/ML 3 ML PEN SC SCH ×4 (08:29→20:41)
[2020-03-06] MEDS: INSULIN GLARGINE SOLOSTAR 100 UNITS/ML 3 ML PEN SC SCH (08:30)
--- NOTE | 2020-03-06 14:29 | Hospitalist Progress Note ---
Date of Service March 06, 2020 Assessment & Plan (1) Pneumonia: Patient has abnormal CT chest was placed on vanco and cefepime., MRSA negative stopping vanco--> will complete one week 03/09/20 negative procalcitonin a nd negative biofire CT Chest 03/02/20 IMPRESSION: 1. Increase in lower lung predominant centrilobular and groundglass nodules since abdominal CT of January 25, 2020. This favors an infectious process. 2. No right lung nodule to correspond to the possible finding on chest radiograph. This was artifactual. 3. Low suspicion 6 mm right upper lobe pulmonary nodule. This is likely benign. A follow up chest CT in 6 months to ensure stability is recommended. 4. Moderate cardiomegaly. Ectatic ascending aorta, measuring 4.2 cm (2) Chronic kidney disease, stage 3a: Acute on chronic kidney disease. creatinine is 1.5, close to baseline. (3) Interstitial lung disease: continue nebs as needed (4) CAD (coronary artery disease): Continue atorvastatin. - Patient is not on ASA, ALMA-inhibitor or BB (states he cannot tolerate beta- blockers). (5) Migraine: chronic will monitor, pt states has been having a headache for 10 days, pt c/o sleep deprivation which can worsen headache and seizures will try melatonin/seroquel to see if it helps (6) PAF (paroxysmal atrial fibrillation): rate controlled without mediations . continue coumadin. INR remains therapuetic checking every 48 (7) Seizure-like activity: Pt states he did have an episode or spell 11/6 pm, remains on keppra and topamax, the pt states he is supposed to have an appointment at [facility] in the upcoming weeks. I did billy neurology qualification engineer and no dosing changes recommended unless issues become more frequent Admission and Anticipated Discharge Date Admission Date: March 02, 2020 Subjective Patient states he had a good night sleep he said he had another episode of his seizure-like activity last p.m. He did not have any injury from it no biting his tongue buccal mucosa he denies incontinence or injury of arms or legs. Said he did have good results of sleep with melatonin and Seroquel we will backed this down to just melatonin today. He is deconditioned and likely will need to be reevaluated for nursing home subacute rehab versus acute rehab. He had no complaints of headache today and he did not complain of any pulmonary complaints Review of Systems Review of Systems: Mild distress and fatigue Patient had no complaints of headache on 03/06/2020 no speech or swallowing issues no chest pain, pressure or palpitations Patient says his breathing feels improved he has no cough or no wheezes no abdominal pain, nausea or vomiting, diarrhea or constipation no dysuria, hematuria or frequency no focal joint pain or swelling no back pain, CVA tenderness or radicular pain no bruising, bleeding or rashes no focal signs of weakness or numbness or altered sensation no complaints of anxiety or depression. Physical Exam Physical Exam: The patient appeared well nourished and normally developed. He does not appear to be in significant distress at this time Vital signs as documented. Head exam is normocephalic atraumatic no scleral icterus Neck is without JVD, thyromegaly, or carotid bruits. Lungs are coarse at baseline Cardiac exam, Rhythm is regular.. Systolic ejection murmur Abdominal exam reveals normal bowel sounds, soft non tender, no masses Extremities are nonedematous and both pedal pulses are present Neurologic exam is alert and oriented, no focal loss of strength or sensation Skin is without bruises or rashes Psychologically is without concerns for anxiety or depression. Results & Data Results & Data ([facility]) Vital Signs (Past 12 Hours) Vital Signs Temp Pulse Resp BP Pulse Ox 03/06/20 08:09 97.3 F L 73 20 118/71 93 PG Care Time/CCT Total # of Minutes Spent Total Time Spent with Patient: Total time spent is greater than 50% in coordination of care (as documented) at patient's floor/unit and/or counseling patient: Coding Level of Care Code 91784 Subseq Hosp Care Lvl 2 Diagnoses Pneumonia J18.9 Chronic kidney disease, stage 3a N18.3 Interstitial lung disease J84.9 CAD (coronary artery disease) I25.10 Coronary Disease-Associated Artery/Lesion type: [place] artery [place] vs. transplanted heart: [place] heart Associated angina: without angina Migraine G43.909 PAF (paroxysmal atrial fibrillation) I48.0 Seizure-like activity R56.9 (1) CAD (coronary artery disease) Coronary Disease-Associated Artery/Lesion type: [place] artery [place] vs. transplanted heart: [place] heart Associated angina: without angina Qualified Code(s): I25.10 - Atherosclerotic heart disease of [place] coronary artery without angina pectoris
[2020-03-06] MEDS: WARFARIN SOD 7.5 MG TAB PO SCH (16:08)
[2020-03-06] MEDS: ALBUT/IPRATROP 3MG/0.5MG NEB 3 ML VIAL NEB PRN (19:44)
[2020-03-06] MEDS: bisacodyL 5 MG TABEC PO PRN (20:38)
[2020-03-06] MEDS: allopurinoL 100 MG TAB PO SCH (20:38)
[2020-03-06] MEDS: CHOLECALCIFEROL 1,000 UNITS 25 MCG TAB PO SCH (20:38)
[2020-03-06] MEDS: ACETAMINOPHEN 325 MG TAB PO PRN (20:38)
[2020-03-06] MEDS: ATORVASTATIN 40 MG TAB PO SCH (20:39)
[2020-03-06] MEDS ORDERED: MELATONIN 3 MG TAB PO SCH (21:00)
[2020-03-07] MEDS: ACETAMINOPHEN 325 MG TAB PO PRN ×2 (03:45→11:30)
[2020-03-07] MEDS: CEFEPIME 2,000 MG in SYRINGE 0 ML IV SCH ×3 (05:44→21:36)
[2020-03-07] MEDS: TORSEMIDE 20 MG TAB PO SCH (07:37)
[2020-03-07] MEDS: TOPIRAMATE 100 MG TAB PO SCH ×2 (07:38→20:42)
[2020-03-07] MEDS: predniSONE 10 MG TABLET PO SCH (07:38)
[2020-03-07] MEDS: levETIRAcetam 500 MG TAB PO SCH (07:39)
[2020-03-07] MEDS: GABAPENTIN 600 MG TAB PO SCH ×3 (07:39→20:44)
[2020-03-07 08:17] LABS: INR 2.2 (0.9-1.1); Prothrombin Time 22.2 Seconds (9.0-12.0)
[2020-03-07] MEDS: INSULIN GLARGINE SOLOSTAR 100 UNITS/ML 3 ML PEN SC SCH (09:42)
[2020-03-07] MEDS: INSULIN ASPART 100 UNITS/ML 3 ML PEN SC SCH ×4 (09:43→20:39)
[2020-03-07] MEDS ORDERED: levETIRAcetam 250 MG TAB PO ONE (10:52)
[2020-03-07] MEDS: FINASTERIDE 5 MG TAB PO SCH (11:30)
[2020-03-07] MEDS ORDERED: ONDANSETRON INJ 2 MG/ML 2 ML VIAL IV ONE (13:45)
--- NOTE | 2020-03-07 14:46 | Pharmacy Report ---
Pharmacy Glycemic Short Note 2 - Date of Service March 07, 2020 - Glycemic Short BSG Results (Last 24 hours): 03/06/20 03/06/20 03/07/20 16:22 20:35 08:38 POC Glucose 134 H 168 H 102 H 03/07/20 03/07/20 10:39 12:12 POC Glucose 201 H 189 H Outpatient Anti-diabetic Regimen: * Tresiba 50 units SC BID * Novolog sliding scale TIDM * Trulicity 1.5 mg SC on Saturdays * Of note: patient is on chronic prednisone 10 mg PO qAM and 5 mg PO qPM * A1c = 7.4 % (02/06/20) ASSESSMENT: 03/07: * Pt with BSG 85mg/dl at HS on 03/05 - loosen CHO coverage 03/06 * Code purple at 1000 this morning, BSG at that time was 201mg/dl, patient recovered and ate lunch. * All other blood sugars at goal, no further changes needed in insulin regimen at this time. 03/05: * Pt has received 120 units of insulin over the past 24hrs * 50 units of basal insulin with Lantus * 70 units of bolus insulin with NovoLog * BSGs ranging 60-230 mg/dl * Hydrocortisone IV dc yesterday and pt resuming Prednisone 10mg daily this AM * Pt with LOW BSG prior to dinner yesterday. Will loosen CHO coverage * AM fasting BSG trending downwards 153 --> 149 --> 118 mg/dl. Will loosen CF and continue 50% of outpatient basal insulin dosing. 03/04/20: * Pt has received 146 units of insulin over the past 24hrs * 60 units of basal insulin with Lantus * 86 units of bolus insulin with NovoLog * BSGs ranging 90-230 mg/dl * Hyperglycemia secondary to steroids. Last dose of hydrocortisone scheduled for 1400 today. Then, patient to resume Prednisone 10mg daily starting tomorrow. * Will continue tightened NovoLog parameters today but not continue the stressed dose of Lantus since steroids are tapering. 03/03 * Recent admission reviewed - agree with likely need for 50 units while inpatient and on home-dose steroids. However, steroids increasing x24 hours (hydrocortisone 50 mg IV q8h) therefore will add scale for this evening for additional Lantus based on BSG * On previous admission, some post-prandial BSG's responded well to a CHO ratio of 3 g CHO/unit, but there were still multiple elevated BSG's on that ratio. Will tighten x1 with lunch (prior to start of hydrocortisone) then will tighten further at dinner (after start of hydrocortisone) * Will add two overnight checks 2nd increased steroid dose 03/02 * DB is a 74 year old male presented to [facility] ED on evening of 03/02 with increasing shortness of breath * BSG at time of admission is 183 mg/dL * Per interview with patient: he did take 50 units of Tresiba this morning. Home doses also confirmed. * Per recent admission data, fasting BSGs well-controlled with ~50 units of basal insulin * Will hold off on more basal insulin today and manage with Novolog this evening (patient agreeable to this plan) * Patient has history of interstitial lung disease - on chronic prednisone 10 mg PO qAM and 5 mg PO qPM PLAN FOR INPATIENT GLYCEMIC CONTROL: * Hold outpatient Trulicity * Basal insulin * Lantus 50 units SQ daily in AM * Bolus insulin: loosen parameters * NovoLog per scale ACHS or Q6hrs while NPO * Goal Range: Low 110 mg/dL - High 140 mg/dL * Correction Factor: 15 mg/dL/unit * loosened 03/06: CHO ratio: 1 unit for every 5 g CHO consumed
--- NOTE | 2020-03-07 16:19 | Hospitalist Progress Note ---
Date of Service March 07, 2020 Assessment & Plan (1) Seizure-like activity: Pt states he did have an episode or spell 118 am, spoke to Dr Sheikh will increase with augmented po keppra and keep topamax dose Prolactin immediately after event was normal and according to nih "For tonic-clonic seizures sensitivity was 100% and for complex partial seizures sensitivity was 84.4%. Overall, elevated prolactin occurred in 84.4% of patients with epileptic events and 28.8% of patients with nonepileptic events" The pt states he is supposed to have an appointment at [place] [facility] in the upcoming weeks. If he continues to have events here we may need to consider transfer (2) Pneumonia: Patient has abnormal CT chest was placed on vanco and cefepime., MRSA negative stopping vanco--> will complete one week 03/09/20 negative procalcitonin a nd negative biofire CT Chest 03/02/20 IMPRESSION: 1. Increase in lower lung predominant centrilobular and groundglass nodules since abdominal CT of January 25, 2020. This favors an infectious process. 2. No right lung nodule to correspond to the possible finding on chest radiograph. This was artifactual. 3. Low suspicion 6 mm right upper lobe pulmonary nodule. This is likely benign. A follow up chest CT in 6 months to ensure stability is recommended. 4. Moderate cardiomegaly. Ectatic ascending aorta, measuring 4.2 cm (3) Chronic kidney disease, stage 3a: Acute on chronic kidney disease. creatinine is 1.5, close to baseline. (4) Interstitial lung disease: continue nebs as needed (5) CAD (coronary artery disease): Continue atorvastatin. - Patient is not on ASA, ALMA-inhibitor or BB (states he cannot tolerate beta- blockers). (6) Migraine: chronic will monitor, pt states has been having a headache for 10 days, pt c/o sleep deprivation which can worsen headache and seizures will try melatonin/seroquel to see if it helps (7) PAF (paroxysmal atrial fibrillation): rate controlled without mediations . continue coumadin. INR remains therapuetic checking every 48 Admission and Anticipated Discharge Date Admission Date: March 02, 2020 Subjective Patient underwent a code purple in the morning of 03/07/2020. Reportedly he was going to the bathroom was returning from the bathroom when he said he did not feel well he sat in a chair became decreased responsiveness had rhythmic shaking arm movements. Patient had a blood glucose checked during the event which was 100. His blood pressure heart rate and oxygen saturations were intact. Patient woke up almost immediately and although drowsy was able to speak his name and tell us where he was. He had no focal changes exception of the bilateral rhythmic arm shakiness. Patient had a immediately drawn prolactin after the event which was normal. I did speak once again to Dr. Sheikh who recommended increasing his Keppra. Patient is scheduled for outpatient epilepsy center evaluation at [place] on 1119 however if he is not discharged by that date we may need to consider transfer Review of Systems Review of Systems: Mild distress and fatigue Patient had no complaints of headache on 03/06/2020 no speech or swallowing issues no chest pain, pressure or palpitations Patient says his breathing feels improved he has no cough or no wheezes no abdominal pain, nausea or vomiting, diarrhea or constipation no dysuria, hematuria or frequency no focal joint pain or swelling no back pain, CVA tenderness or radicular pain no bruising, bleeding or rashes no focal signs of weakness or numbness or altered sensation no complaints of anxiety or depression. Physical Exam Physical Exam: The patient appeared well nourished and normally developed. He does not appear to be in significant distress at this time Vital signs as documented. Head exam is normocephalic atraumatic no scleral icterus Neck is without JVD, thyromegaly, or carotid bruits. Lungs are coarse at baseline Cardiac exam, Rhythm is regular.. Systolic ejection murmur Abdominal exam reveals normal bowel sounds, soft non tender, no masses Extremities are nonedematous and both pedal pulses are present Neurologic exam is alert and oriented, no focal loss of strength or sensation Skin is without bruises or rashes Psychologically is without concerns for anxiety or depression. Results & Data Results & Data ([facility]) Vital Signs (Past 12 Hours) Vital Signs Temp Pulse Pulse Resp BP BP Pulse Ox 03/07/20 15:51 98.2 F 59 L 18 120/78 95 03/07/20 10:42 81 159/69 H 03/07/20 10:28 72 112/64 97 03/07/20 08:35 97.3 F L 55 L 18 118/68 94 PG Care Time/CCT Total # of Minutes Spent Total Time Spent with Patient: Total time spent is greater than 50% in coordination of care (as documented) at patient's floor/unit and/or counseling patient: Coding Level of Care Code 21625 Subseq Hosp Care Lvl 3 Diagnoses Seizure-like activity R56.9 Pneumonia J18.9 Chronic kidney disease, stage 3a N18.3 Interstitial lung disease J84.9 CAD (coronary artery disease) I25.10 Associated angina: without angina Coronary Disease-Associated Artery/Lesion type: [place] artery [place] vs. transplanted heart: [place] heart Migraine G43.909 PAF (paroxysmal atrial fibrillation) I48.0 (1) CAD (coronary artery disease) Associated angina: without angina Coronary Disease-Associated Artery/Lesion type: [place] artery [place] vs. transplanted heart: [place] heart Qualified Code(s): I25.10 - Atherosclerotic heart disease of [place] coronary artery without angina pectoris
[2020-03-07] MEDS: WARFARIN SOD 7.5 MG TAB PO SCH (16:31)
[2020-03-07] MEDS ORDERED: LORazepam 2 MG/4 ML VIAL IV PRN (20:16)
[2020-03-07] MEDS ORDERED: LORazepam 2 MG/4 ML VIAL IV ONE (20:30)
[2020-03-07] MEDS: allopurinoL 100 MG TAB PO SCH (20:41)
[2020-03-07] MEDS: CHOLECALCIFEROL 1,000 UNITS 25 MCG TAB PO SCH (20:42)
[2020-03-07] MEDS: levETIRAcetam 250 MG TAB PO SCH (20:42)
[2020-03-07] MEDS: ATORVASTATIN 40 MG TAB PO SCH (20:44)
[2020-03-08] MEDS: ACETAMINOPHEN 325 MG TAB PO PRN ×2 (02:58→15:38)
[2020-03-08] MEDS: CEFEPIME 2,000 MG in SYRINGE 0 ML IV SCH ×3 (05:53→21:24)
[2020-03-08] MEDS: TORSEMIDE 20 MG TAB PO SCH (08:19)
[2020-03-08] MEDS: predniSONE 10 MG TABLET PO SCH (08:19)
[2020-03-08] MEDS: TOPIRAMATE 100 MG TAB PO SCH ×2 (08:19→20:33)
[2020-03-08] MEDS: levETIRAcetam 250 MG TAB PO SCH ×2 (08:19→20:33)
[2020-03-08] MEDS: FINASTERIDE 5 MG TAB PO SCH (08:20)
[2020-03-08] MEDS: GABAPENTIN 600 MG TAB PO SCH ×3 (08:21→20:33)
[2020-03-08] MEDS: INSULIN ASPART 100 UNITS/ML 3 ML PEN SC SCH ×4 (08:39→21:03)
[2020-03-08] MEDS: INSULIN GLARGINE SOLOSTAR 100 UNITS/ML 3 ML PEN SC SCH (08:40)
[2020-03-08 09:32] LABS: Hematocrit (blood only) 35.8 % (42-52); Hemoglobin 11.3 g/dL (14.0-18.0); Mean Corpuscular Hemoglobin 28.5 pg (25-34); Mean Corpuscular Hgb Conc 31.6 g/dL (32-36); Mean Corpuscular Volume 90.4 fL (80-100); Mean Platelet Volume 9.6 fL (7.4-10.4); Platelet Count 126 K/uL (130-400); RDW Coefficient of Variation 16.6 % (11.5-14.5); RDW Standard Deviation 55.4 fL (36.4-46.3); Red Blood Count 3.96 M/uL (4.7-6.1); White Blood Count 4.33 K/uL (4.8-10.8)
[2020-03-08 09:39] LABS: INR 2.4 (0.9-1.1); Prothrombin Time 24.2 Seconds (9.0-12.0)
[2020-03-08 10:03] LABS: Albumin Level 2.7 gm/dl (3.4-5.0); Calcium 8.6 mg/dl (8.5-10.1); Est GFR (African American) 47.4; Est GFR (Non-African American) 40.9; Potassium 3.3 mmol/L (3.5-5.1)
[2020-03-08 10:06] LABS: Albumin Globulin Ratio 0.9 (0.9-2); Bilirubin,Total 0.3 mg/dl (0.2-1); Total Protein 5.7 gm/dl (6.4-8.2)
[2020-03-08] MEDS ORDERED: NSS + 20MEQ KCL 20 MEQ/1,000 ML BAG IV SCH (12:00)
[2020-03-08] MEDS: ALBUT/IPRATROP 3MG/0.5MG NEB 3 ML VIAL NEB PRN (13:28)
[2020-03-08] MEDS: WARFARIN SOD 7.5 MG TAB PO SCH (15:42)
--- NOTE | 2020-03-08 15:43 | Hospitalist Progress Note ---
Date of Service March 08, 2020 Assessment & Plan (1) Seizure-like activity: Code purple 11/8 am with seizure like activity - increased po keppra per Dr. Sheikh's recommendation and kept topamax dose Prolactin immediately after event was normal and according to nih "For tonic- clonic seizures sensitivity was 100% and for complex partial seizures sensitivity was 84.4%. Overall, elevated prolactin occurred in 84.4% of patients with epileptic events and 28.8% of patients with nonepileptic events" The pt states he is supposed to have an appointment at [place] [facility] in the upcoming weeks. Hopefully he will remain seizure free with adjustments in his medications and will be able to discharge to follow up outpatient. No events today (2) Pneumonia: Patient has abnormal CT chest was placed on vanco and cefepime., MRSA negative so vanc stopped--> will complete one week 03/09/20 negative procalcitonin and negative biofire CT Chest 03/02/20 IMPRESSION: 1. Increase in lower lung predominant centrilobular and groundglass nodules s [place] abdominal CT of January 25, 2020. This favors an infectious process. 2. No right lung nodule to correspond to the possible finding on chest radiograph. This was artifactual. (3) Chronic kidney disease, stage 3a: Acute on chronic kidney disease. creatinine is 1.6 up from 1.2 yesterday, will hydrate with 1L NSS 20K Baseline appears to be around 1.4 (4) Interstitial lung disease: continue nebs as needed (5) CAD (coronary artery disease): Continue atorvastatin. - Patient is not on ASA, ALMA-inhibitor or BB (states he cannot tolerate beta- blockers). (6) Migraine: chronic will monitor, pt states has been having a headache for 10 days, pt c/o sleep deprivation which can worsen headache and seizures will try melatonin/seroquel to see if it helps (7) PAF (paroxysmal atrial fibrillation): rate controlled without medications . continue coumadin. INR remains therapuetic checking every 48 (8) Aortic ectasia, thoracic: As seen on CT: Ectatic ascending aorta, measuring 4.2 cm. Control blood pressure, patient is on appropriate statin Recommend continued surveillance outpatient. Per UpToDate: TAA 3.5 to 4.4 cm: Annual CT or MR angiography, echocardiogram to follow valvular disease (if needed) (9) Pulmonary nodule: On CT: Low suspicion 6 mm right upper lobe pulmonary nodule. This is likely benign. A follow up chest CT in 6 months to ensure stability is recommended. 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 Pharmacy glycemic consult (14) DVT prophylaxis: Warfarin Son updated over the phone Admission and Anticipated Discharge Date Admission Date: March 02, 2020 Subjective Mr. Bradford continues to have a headache which he reports has gone on for about 10 days now. He is having trouble seeing words on a page when he's reading which he said started in December but previous to that wasn't an issue. His legs are weak and he felt very shaky during therapy today. He is also complaining that he is having some difficulty with memory though in our conversation he is is fo rgetful but fluent. ROS Constitutional: no chills, aches, sweats or fever Respiratory: no sob,cough, sputum, or wheezing Cardiac: no chest pain, palpitations, edema, orthopnea or lightheadedness GI: no abdominal pain, nausea, vomiting, diarrhea or constipation : no dysuria or hesitancy Extremities: no joint pain or weakness Skin: no rash All other systems reviewed and negative Physical Exam Physical Exam: General: no distress Eyes: normal inspection, PERLL Respiratory: chest non tender, clear to auscultation, normal breath sounds, no respiratory distress, no accessory muscle use Cardiac: irregular rate and rhythm, no rub or gallop, no murmur, no edema, no jvd GI/: active bowel sounds, no abd pain or tenderness, soft, non distended Extremities: normal range of motion, lower extremities weak left more so than right, non tender Neuro/Psych: alert and oriented x 3, normal mood and affect, CN II - XII intact Skin: normal color, dry Results & Data Results & Data ([facility]) Vital Signs (Past 12 Hours) Vital Signs Temp Pulse Pulse Resp BP Pulse Ox 03/08/20 13:28 74 20 97 03/08/20 13:23 97 03/08/20 13:19 69 20 91 03/08/20 07:16 36.6 C 64 18 113/67 94 PG Care Time/CCT Total # of Minutes Spent Total Time Spent with Patient: Total time spent is greater than 50% in coordination of care (as documented) at patient's floor/unit and/or counseling patient: Coding Level of Care Code 81788 Subseq Hosp Care Lvl 3 Diagnoses Seizure-like activity R56.9 Pneumonia J18.9 Chronic kidney disease, stage 3a N18.3 Interstitial lung disease J84.9 CAD (coronary artery disease) I25.10 Associated angina: without angina Coronary Disease-Associated Artery/Lesion type: [place] artery [place] vs. transplanted heart: [place] heart Migraine G43.909 PAF (paroxysmal atrial fibrillation) I48.0 Aortic ectasia, thoracic I77.810 Pulmonary nodule R91.1 Hypokalemia E87.6 Aortic valve replaced Z95.2 Polymyositis M33.20 Diabetes E11.42; Z79.4 Diabetes mellitus type: type 2 Diabetes mellitus terminal operations manager insulin use: with residential use Diabetes mellitus complication status: with neurologic complications Diabetes mellitus complication detail: with polyneuropathy DVT prophylaxis Z29.9 (1) CAD (coronary artery disease) Associated angina: without angina Coronary Disease-Associated Artery/Lesion type: [place] artery [place] vs. transplanted heart: [place] heart Qualified Code(s): I25.10 - Atherosclerotic heart disease of [place] coronary artery without angina pectoris (2) Diabetes Diabetes mellitus type: type 2 Diabetes mellitus terminal operations manager insulin use: with residential use Diabetes mellitus complication status: with neurologic comp lications Diabetes mellitus complication detail: with polyneuropathy Qualified Code(s): E11.42 - Type 2 diabetes mellitus with diabetic polyneuropathy; Z79.4 - retirement (current) use of insulin
[2020-03-08] MEDS: CHOLECALCIFEROL 1,000 UNITS 25 MCG TAB PO SCH (20:33)
[2020-03-08] MEDS: ATORVASTATIN 40 MG TAB PO SCH (20:33)
[2020-03-08] MEDS: allopurinoL 100 MG TAB PO SCH (20:33)
[2020-03-09] MEDS: ACETAMINOPHEN 325 MG TAB PO PRN ×4 (00:16→16:22)
[2020-03-09] MEDS: CEFEPIME 2,000 MG in SYRINGE 0 ML IV SCH ×2 (05:47→16:21)
[2020-03-09 07:58] LABS: Hematocrit (blood only) 33.4 % (42-52); Hemoglobin 10.4 g/dL (14.0-18.0); Mean Corpuscular Hemoglobin 28.6 pg (25-34); Mean Corpuscular Hgb Conc 31.1 g/dL (32-36); Mean Corpuscular Volume 91.8 fL (80-100); Mean Platelet Volume 9.6 fL (7.4-10.4); Platelet Count 126 K/uL (130-400); RDW Coefficient of Variation 16.7 % (11.5-14.5); RDW Standard Deviation 55.4 fL (36.4-46.3); Red Blood Count 3.64 M/uL (4.7-6.1); White Blood Count 4.53 K/uL (4.8-10.8)
[2020-03-09 08:16] LABS: INR 2.9 (0.9-1.1); Prothrombin Time 29.3 Seconds (9.0-12.0)
[2020-03-09 08:32] LABS: BUN Creatinine Ratio 24.6 (10-20); Calcium 8.6 mg/dl (8.5-10.1); Creatinine Clr Calc Pharmacy 53.3 ml/min; Est GFR (African American) 51.2; Est GFR (Non-African American) 44.1; Potassium 3.4 mmol/L (3.5-5.1)
[2020-03-09] MEDS: INSULIN ASPART 100 UNITS/ML 3 ML PEN SC SCH ×4 (09:18→21:08)
[2020-03-09] MEDS: GABAPENTIN 600 MG TAB PO SCH ×3 (09:20→21:08)
[2020-03-09] MEDS ORDERED: POTASSIUM CHLORIDE CRTAB 20 MEQ TABCR PO STA (09:20)
[2020-03-09] MEDS: levETIRAcetam 250 MG TAB PO SCH ×2 (09:20→21:08)
[2020-03-09] MEDS: TOPIRAMATE 100 MG TAB PO SCH ×2 (09:21→21:08)
[2020-03-09] MEDS: predniSONE 10 MG TABLET PO SCH (09:21)
[2020-03-09] MEDS: INSULIN GLARGINE SOLOSTAR 100 UNITS/ML 3 ML PEN SC SCH (09:23)
[2020-03-09] MEDS: POLYETHYLENE (MIRALAX) 17 GM PACK PO PRN (09:27)
[2020-03-09] MEDS: FINASTERIDE 5 MG TAB PO SCH (10:09)
--- NOTE | 2020-03-09 10:21 | Pharmacy Report ---
Pharmacy Glycemic Short Note 2 - Date of Service March 09, 2020 - Glycemic Short BSG Results (Last 24 hours): 03/08/20 03/08/20 03/08/20 12:11 17:14 20:36 Glucose POC Glucose 249 H 195 H 145 H 03/09/20 03/09/20 07:13 08:39 Glucose 146 H POC Glucose 168 H Outpatient Anti-diabetic Regimen: * Tresiba 50 units SC BID * Novolog sliding scale TIDM * Trulicity 1.5 mg SC on Saturdays * Of note: patient is on chronic prednisone 10 mg PO qAM and 5 mg PO qPM * A1c = 7.4 % (02/06/20) ASSESSMENT: 03/09 * Patient received total of 99 units of insulin yesterday, of which 50 were basal insulin * Fasting 146 mg/dL - continue same basal /continues on 10 daily * Tightened CR yesterday due to elevated BSG at lunch time / continue same for today PLAN FOR INPATIENT GLYCEMIC CONTROL: * Hold outpatient Trulicity * Basal insulin * Lantus 50 units SQ daily in AM * Bolus insulin: loosen parameters * NovoLog per scale ACHS or Q6hrs while NPO * Goal Range: Low 110 mg/dL - High 140 mg/dL * Correction Factor: 15 mg/dL/unit * loosened 03/06: CHO ratio: 1 unit for every 5 g CHO consumed PLAN FOR OUTPATIENT CONTROL: * A1c 7.4% - close to goal <7%. Reasonable to continue home regimen on discharge as long as no contraindications present and patient not experiencing hypoglycemia outpatient * Patient previously on chronic prednisone 10 mg qAM, 5 mg qPM - would recommend close monitoring of BSGs outpatient if regimen is different on discharge as adjustments may be necessary
--- NOTE | 2020-03-09 14:21 | Hospitalist Progress Note ---
Date of Service March 09, 2020 Assessment & Plan (1) Seizure-like activity: Code purple 03/07 am with seizure like activity - increased po keppra per Dr. Sheikh's recommendation and kept topamax dose. Seizure like activity again on 03/09. No post ictal period, no incontinence. Patient was alert and oriented but reported feeling confused afterward. 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 Discussed with neurology at [place]. They did not recommend he transfer, felt that he could remain here with follow up at his previously planned outpatient appointment in [place] in 10 days. Prolactin immediately after event on 03/07 was normal and according to nih "For tonic-clonic seizures sensitivity was 100% and for complex partial seizures sensitivity was 84.4%. Overall, elevated prolactin occurred in 84.4% of patients with epileptic events and 28.8% of patients with nonepileptic events" (2) Pneumonia: Patient has abnormal CT chest was placed on vanco and cefepime., MRSA negative so vanc stopped--> will complete one week 03/09/20 negative procalcitonin and negative biofire CT Chest 03/02/20 IMPRESSION: 1. Increase in lower lung predominant centrilobular and groundglass nodules since abdominal CT of January 25, 2020. This favors an infectious process. 2. No right lung nodule to correspond to the possible finding on chest radiograph. This was artifactual. (3) Chronic kidney disease, stage 3a: Acute on chronic kidney disease. creatinine is 1.5 which is around his baseline. Repeat bmp am (4) Interstitial lung disease: continue nebs as needed (5) CAD (coronary artery disease): Continue atorvastatin. - Patient is not on ASA, ALMA-inhibitor or BB (states he cannot tolerate beta- blockers). (6) Migraine: chronic, ongoing since previous hospital admission (7) PAF (paroxysmal atrial fibrillation): rate controlled without medications . continue coumadin. INR remains therapeutic checking every 48 (8) Aortic ectasia, thoracic: As seen on CT: Ectatic ascending aorta, measuring 4.2 cm. Control blood pressure, patient is on appropriate statin Recommend continued surveillance outpatient. Per UpToDate: TAA 3.5 to 4.4 cm: Annual CT or MR angiography, echocardiogram to follow valvular disease (if needed) (9) Pulmonary nodule: On CT: Low suspicion 6 mm right upper lobe pulmonary nodule. This is likely benign. A follow up chest CT in 6 months to ensure stability is recommended. (10) Hypokalemia: replaced (11) Aortic valve replaced: Mechanical Continue warfarin. INR 2.9 today (12) Polymyositis: Takes chronic prednisone for this (13) Diabetes: Type II Last A1c 7.4 Pharmacy glycemic consult (14) DVT prophylaxis: Warfarin Son updated at bedside by Dr. Ram Admission and Anticipated Discharge Date Admission Date: March 02, 2020 Subjective Mr. Bradford had seizure like activity this morning. He had shaking of his legs and arms, not responsive. He did not respond to sternal rub but subsequent nail bed pressure did arouse after a few minutes. After episode he was awake and alert, but confused. No incontinence. He was transferred to the PCU. Discussed with neurology at [place]. They did not recommend he transfer, felt that he could remain here with follow up at his previously planned outpatient appointment in [place] in 10 days. ROS Constitutional: no chills, aches, sweats or fever Respiratory: no sob,cough, sputum, or wheezing Cardiac: no chest pain, palpitations, edema, orthopnea or lightheadedness GI: no abdominal pain, nausea, vomiting, diarrhea or constipation : no dysuria or hesitancy Extremities: no joint pain or weakness Skin: no rash All other systems reviewed and negative Physical Exam Physical Exam: General: no distress Eyes: normal inspection, PERLL Respiratory: chest non tender, clear to auscultation, normal breath sounds, no respiratory distress, no accessory muscle use Cardiac: regular rate and rhythm, no rub or gallop, no murmur, no edema, no jvd GI/: active bowel sounds, no abd pain or tenderness, soft, non distended Extremities: normal range of motion, normal strength, non tender Neuro/Psych: alert and oriented x 3, normal mood and affect Skin: normal color, dry Results & Data Results & Data ([facility]) Vital Signs (Past 12 Hours) Vital Signs Temp Pulse Pulse Resp BP Pulse Ox 03/09/20 12:10 36.6 C 64 18 126/72 97 03/09/20 11:00 78 03/09/20 10:00 79 14 164/75 H 98 03/09/20 08:36 36.4 C L 54 L 18 121/75 95 PG Care Time/CCT Total # of Minutes Spent Total Time Spent with Patient: Total time spent is greater than 50% in coordination of care (as documented) at patient's floor/unit and/or counseling patient: Coding Level of Care Code 55373 Subseq Hosp Care Lvl 3 Diagnoses Seizure-like activity R56.9 Pneumonia J18.9 Chronic kidney disease, stage 3a N18.3 Interstitial lung disease J84.9 CAD (coronary artery disease) I25.10 Associated angina: without angina Coronary Disease-Associated Artery/Lesion type: [place] artery [place] vs. transplanted heart: [place] heart Migraine G43.909 PAF (paroxysmal atrial fibrillation) I48.0 Aortic ectasia, thoracic I77.810 Pulmonary nodule R91.1 Hypokalemia E87.6 Aortic valve replaced Z95.2 Polymyositis M33.20 Diabetes E11.42; Z79.4 Diabetes mellitus complication detail: with polyneuropathy Diabetes mellitus complication status: with neurologic complications Diabetes mellitus snf insulin use: with snf use Diabetes mellitus type: type 2 DVT prophylaxis Z29.9 (1) Diabetes Diabetes mellitus complication detail: with polyneuropathy Diabetes mellitus complication status: with neurologic complications Diabetes mellitus manufacturing maintenance manager insulin use: with manufacturing maintenance manager use Diabetes mellitus type: type 2 Qualified Code(s): E11.42 - Type 2 diabetes mellitus with diabetic polyneuropathy; Z79.4 - bail bondsman (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 transplanted heart: [place] heart Qualified Code(s): I25.10 - Atherosclerotic heart disease of [place] coronary artery without angina pectoris
[2020-03-09] MEDS: WARFARIN SOD 7.5 MG TAB PO SCH (16:22)
[2020-03-09] MEDS: ALBUT/IPRATROP 3MG/0.5MG NEB 3 ML VIAL NEB PRN (20:27)
[2020-03-09] MEDS ORDERED: traZODone HCL 50 MG TAB PO PRN (20:36)
[2020-03-09] MEDS: allopurinoL 100 MG TAB PO SCH (21:08)
[2020-03-09] MEDS: ATORVASTATIN 40 MG TAB PO SCH (21:08)
[2020-03-09] MEDS: CHOLECALCIFEROL 1,000 UNITS 25 MCG TAB PO SCH (21:08)
[2020-03-09] MEDS: bisacodyL 5 MG TABEC PO PRN (21:12)
[2020-03-10] MEDS: CEFEPIME 2,000 MG in SYRINGE 0 ML IV SCH (05:14)
[2020-03-10] MEDS: TOPIRAMATE 100 MG TAB PO SCH ×2 (08:12→21:04)
[2020-03-10] MEDS: GABAPENTIN 600 MG TAB PO SCH ×3 (08:12→21:04)
[2020-03-10] MEDS: levETIRAcetam 250 MG TAB PO SCH ×2 (08:12→21:04)
[2020-03-10] MEDS: FINASTERIDE 5 MG TAB PO SCH (08:13)
[2020-03-10] MEDS: predniSONE 10 MG TABLET PO SCH (08:13)
[2020-03-10] MEDS: INSULIN GLARGINE SOLOSTAR 100 UNITS/ML 3 ML PEN SC SCH (08:14)
[2020-03-10 08:15] LABS: Hematocrit (blood only) 33.5 % (42-52); Hemoglobin 10.4 g/dL (14.0-18.0); Mean Corpuscular Hemoglobin 28.3 pg (25-34); Mean Platelet Volume 9.6 fL (7.4-10.4); Platelet Count 131 K/uL (130-400); RDW Coefficient of Variation 16.7 % (11.5-14.5); RDW Standard Deviation 55.7 fL (36.4-46.3); Red Blood Count 3.68 M/uL (4.7-6.1)
[2020-03-10] MEDS: INSULIN ASPART 100 UNITS/ML 3 ML PEN SC SCH ×4 (08:15→22:40)
[2020-03-10 08:46] LABS: BUN Creatinine Ratio 25.1 (10-20); Creatinine Clr Calc Pharmacy 64.4 ml/min; Est GFR (African American) 64.7; Est GFR (Non-African American) 55.8; Potassium 3.5 mmol/L (3.5-5.1)
--- NOTE | 2020-03-10 09:55 | Psychiatric Consultation ---
Date of Consultation March 10, 2020 Impression / Recommendations Impression Dr. Chelita Espino was directly involved in review and discussion of the patient's case and participated in medical decision making regarding treatment recommendations. RECOMMENDATIONS: 03/10 - Psychiatric consultation requested by hospitalist service to evaluate patient for psychogenic nonepileptic seizure. It was reported that this was suggested by neurology clinic through [facility] - outpatient appointment scheduled with them on 03/19. Pt has been following with outpatient neurology locally as well. - Diagnosis of psychogenic nonepileptic seizures is a diagnosis of exclusion that requires thorough neurological work-up. Fortunately, patient has an appointment scheduled with providers at [facility] for review of his case. Pt was informed this provider could not confirm this diagnosis, but we did talk about the etiology and recommended treatment should this diagnosis be suggested after further neurological work-up. Pt is not able to articulate any particular stressor that seems significant enough to result in pseudoseizure activity, as this generally results from a significant trauma or obvious stressor. - Pt, himself, does not perceive himself to be depressed or anxious. He does admit to several stressors within the past 2-3 years related to the passing of his to pancreatic cancer, his own cancer diagnosis, frequent hospitalizations, and other medical issues. Pt denies consistent depressive symptoms and feels his "good days way outweigh the bad." Pt is declining to consider outpatient therapy or medication initiation at this time. As part of educational conversation on the general diagnosis of psychogenic nonepileptic seizures, we discussed that if this diagnosis is confirmed patient would likely be recommended to at least initiate therapy. - Pt denies SI and other acute safety concerns. No indication for inpatient psychiatric treatment. Please feel free to reach out to our service with any additional questions or updates. Psych History Identifying Data 74-year-old male admitted medically on 03/02/2020 after presenting to the ED with complaints of shortness of breath. Pt was being treated for pneumonia. Pt has a history of seizure-like activity and follows with outpatient neurology. Psychiatric consultation was requested for possible pseudoseizures. Chief Complaint "I'll be honest, I'm a little confused. I don't feel that I need the help, and I don't like to hear that people think I'm faking this." History of Present Illness Xavi Bradford is a 74-year-old male admitted medically on 03/02/2020 after presenting to the ED with shortness of breath. Pt was found to have pneumonia and was hospitalized for further treatment. There are reports of episodes of seizure-like activity for which he follows with outpatient neurology. Elder sargent suggests patient had additional episodes of seizure-like activity on 03/07 and 03/09, concern for possible pseudoseizures. There was reported communication with [facility] (outpatient appointment for further evaluation scheduled for 03/19) - transfer was not advised, but there was reported suggestion of obtaining a psychiatric consultation. Pt is cooperative and pleasant with psychiatric assessment, but does start our conversation by stating "I'll be honest, I'm a little confused. I don't feel that I need the help, and I don't like to hear that people think I'm faking this." Pt states that he has been informed of the possibility that his seizure activity may be related to pseudoseizures and states he is having difficulty understanding this. Pt reports "I have down days, but I really don't feel that I'm depressed." Pt shares that he perceives himself to be a "ikbde-pp-fjope" and "joyful" zaira. He denies history of psychiatric treatment for depression or anxiety. Pt states "I'm sure in my almost 75 years I have things I could have unpacked with a therapist, but nothing that would do any good now." Pt does admit to increased situational stressors within the last 2-3 years, sharing of his 's passing from pancreatic cancer in 2017, patient selling their home, patient himself being diagnosed with aggressive prostate cancer and undergoing radiation, and more recently experiencing numerous falls resulting in hospitalizations. 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 Pt states he is not willing at this time for outpatient psychiatric treatment, as he does not feel it is necessary. We did take some time discussing general information about the diagnosis of psychogenic nonepileptic seizures. Pt was informed that a thorough work-up is necessary to rule out a more formal seizure disorder, and he confirms an appointment with providers at [facility] on 03/19. Pt does states that he feels his case has already been dismissed and shares that this is frustrating to him. We discussed that if this diagnosis is confirmed, that this is not the assumption that he is "faking" his symptoms. We reviewed that our body/mind can process and display emotional stress in a variety of ways. Pt was informed that if this diagnosis is confirmed, that it will likely be recommended that the patient begin outpatient therapy, if not also an evaluation for medications. Pt states he would consider that at that time, but is not yet willing for these referrals to be made. Pt does deny SI and other acute mood or safety concerns. He denies other needs or concerns from our service at this time. Past Psychiatric History Current Psychiatric Diagnosis: Denied history of psychiatric diagnoses Outpatient Services: None Previous Psych Admissions: Denied History of Previous Suicide Attempt: No Past Medication Trials: Denied Allergies Allergy/AdvReac Type Severity Reaction Status Date / Time Iodinated Contrast Media Allergy Severe Anaphylaxis Verified 03/02/20 10:23 shellfish derived Allergy Severe Anaphylaxis Verified 03/02/20 10:23 Tetanus Vaccines and Toxoid Allergy Unknown Unknown Verified 03/02/20 10:23 Home Medications Home Medications Medication Instructions Recorded Confirmed Type Trulicity 1.5 mg SUBCUT SA 01/20/20 03/02/20 History albuterol sulfate [Ventolin HFA] 2 puff INHALATION Q4H PRN 01/20/20 03/02/20 History allopurinol 200 mg PO HS 01/20/20 03/02/20 History atorvastatin 80 mg PO HS 01/20/20 03/02/20 History azithromycin 250 mg PO .MOWEFR@QA 01/20/20 03/02/20 History cholecalciferol (vitamin D3) 2,000 unit PO HS 01/20/20 03/02/20 History [Vitamin D3] finasteride 5 mg PO QAM 01/20/20 03/02/20 History insulin aspart U-100 See Rx Instructions .ROUTE .COMPLEX 01/20/20 03/02/20 History ipratropium-albuterol 3 ml INHALATION QID PRN 01/20/20 03/02/20 History nitroglycerin 0.4 mg SUBLINGUAL DIRECTED PRN 01/20/20 03/02/20 History prednisone See Rx Instructions .ROUTE .COMPLEX 01/20/20 03/02/20 History psyllium 1 packet PO QAM 01/20/20 03/02/20 History torsemide 20 mg PO QAM 01/20/20 03/02/20 History trazodone 50 mg PO HS PRN 01/20/20 03/02/20 History bisacodyl 5 mg PO Q6H PRN #0 tab 01/30/20 03/02/20 Rx levetiracetam [Keppra] 500 mg PO BID #60 tab 01/30/20 03/02/20 Rx magnesium hydroxide [Milk of 30 ml PO Q6H PRN #0 ml 01/30/20 03/02/20 Rx Magnesia] polyethylene glycol 3350 [Miralax] 17 g PO DAILY PRN #30 ea 01/30/20 03/02/20 Rx Tresiba FlexTouch U-200 50 unit SUBCUT QPM #0 ml 02/02/20 03/02/20 Rx apmzazg-icowvvawe-mxaa 1 tab PO HS 02/05/20 03/02/20 History gabapentin 600 mg PO BID 30 Days #60 tab 02/11/20 03/02/20 Rx topiramate 100 mg tablet 100 mg PO BID #60 tab 02/20/20 03/02/20 Rx rimegepant 75 mg disintegrating 75 mg PO .COMPLEX 30 Days #8 tab 03/01/20 03/02/20 Rx tablet linaclotide [Linzess] 145 mcg PO QAM 03/02/20 03/02/20 History warfarin 7.5 mg PO HS 03/02/20 03/02/20 History Family History Denies known family history of mental health conditions. Substance Abuse History Denies significant alcohol or tobacco use. Denies use of illicit substances. 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 Patient History Medical History CAD (coronary artery disease) Dehydration Diabetes HLD (hyperlipidemia) Interstitial lung disease Polymyositis Prostate cancer s/p XRT Seizure-like activity Thoracic ascending aortic aneurysm s/p repair Surgical History H/O hernia repair History of aortic valve replacement mechanical History of cholecystectomy History of fusion of cervical spine History of gastric bypass lap band History of heart artery stent History of lung biopsy 2019 History of partial nephrectomy Family History Other Coronary heart disease Rheumatoid arthritis Stroke Social History Smoking Status: Never smoker Second Hand Exposure: No; Do You Dip or Chew Tobacco: No; Tobacco Cessation Education Requested by Patient: No Hx Alcohol Use: No Hx Substance Use: No Preferred Language: Salvadorean Communication Ability: Effective Hearing Ability: Hard of Hearing College Sports Assistant Required: No marital status: / Current Living Situation: Family Current Living Situation Comment: son Other Information That Helps Us Care for You: No Feels Safe at Home: Yes Safety Concerns: Feels Safe At This Time Assistive Devices: Hearing Aid - Bilateral and Walker Physical Exam Psychiatric: Orientation: alert, oriented x 3 and cooperative Apperance: appropriately dressed, + disheveled and appeared stated age Obese-appearing male, laying in bed in no acute distress. Pt is appropriately dressed for setting, wearing a hospital gown. He appears somewhat unkempt with poor dentition. Eye Contact: good eye contact Motor Behavior: + tremor (intermittently with activity, not observed at rest) Speech: normal rate/rhythm/volume of speech Affect: + blunted affect and mood congruent with affect Mood: no depressed mood ("I have down days, but I really don't feel that I'm depressed") and no anxious mood Thought Process: goal directed thought process and clear/coherent thought process Thought Content: reality based without delusions; no hopelessness and no worthlessness Suicidal Thoughts: denies suicidal thoughts, denies suicidal plan and denies suicidal intent Homicidal Thoughts: denies homicidal thoughts Hallucinations: no auditory hallucinations and no visual hallucinations Cognition: recent memory grossly intact, attention grossly intact and language grossly intact Estimated Intelligence: consistent with education level Insight: + fair insight Judgement: + fair judgement Vital Signs (Past 24 Hours): Last Vital Signs Temp 36.3 C L 03/10/20 07:24 Pulse 78 11/11/20 07:24 Resp 18 03/10/20 07:24 BP 127/76 03/10/20 07:24 Pulse Ox 97 03/10/20 07:24 Review of Systems Constitutional: reports persistent headache for 2 weeks, mildly improved today HEENT: reports "vision issues" yesterday, resolved today Cardiovascular: denied Respiratory: denied Gastrointestinal: denied Neurological: reports "memory issues" yesterday, resolved today Psychiatric: denies symptoms other than stated above Total of at least 10 systems reviewed, pertinent positives as above and in HPI. Results & Data (PSY) Medications Administered Acetaminophen (Acetaminophen 325 Mg Tab) 650 mg PO Q4H PRN PRN Reason: fever, pain Stop: 04/01/20 21:01 Last Admin: 03/09/20 16:22 Dose: 650 mg Documented by: [id number] Admin: 03/09/20 10:04 Dose: 650 mg Documented by: [id number] Admin: 03/09/20 05:47 Dose: 650 mg Documented by: [id number] Admin: 03/09/20 00:16 Dose: 650 mg Documented by: [id number] Admin: 03/08/20 15:38 Dose: 650 mg Documented by: [id number] Admin: 03/08/20 02:58 Dose: 650 mg Documented by: [id number] Admin: 03/07/20 11:30 Dose: 650 mg Documented by: [id number] Admin: 03/07/20 03:45 Dose: 650 mg Documented by: [id number] Admin: 03/06/20 20:38 Dose: 650 mg Documented by: [id number] Admin: 03/05/20 21:11 Dose: 650 mg Documented by: [id number] Admin: 03/04/20 17:56 Dose: 650 mg Documented by: [id number] Admin: 03/03/20 19:40 Dose: 650 mg Documented by: [id number] Admin: 03/03/20 12:53 Dose: 650 mg Documented by: [id number] Admin: 03/03/20 03:17 Dose: 650 mg Documented by: [id number] Albuterol (Albut/Ipratrop 3mg/0.5mg Neb 3 Ml Vial) 3 ml NEB QIDR PRN PRN Reason: wheezing Stop: 04/02/20 06:59 Last Admin: 03/09/20 20:27 Dose: 3 ml Documented by: [id number] Admin: 03/08/20 13:28 Dose: 3 ml Documented by: [id number] Admin: 03/06/20 19:44 Dose: 3 ml Documented by: [id number] Admin: 03/05/20 18:59 Dose: 3 ml Documented by: [id number] Admin: 03/04/20 20:11 Dose: 3 ml Documented by: [id number] Admin: 03/03/20 19:54 Dose: 3 ml Documented by: [id number] Admin: 03/03/20 08:30 Dose: 3 ml Documented by: [id number] Allopurinol (Allopurinol 100 Mg Tab) 200 mg PO [facility] Stop: 04/01/20 20:59 Last Admin: 03/09/20 21:08 Dose: 200 mg Documented by: [id number] Admin: 03/08/20 20:33 Dose: 200 mg Documented by: [id number] Admin: 03/07/20 20:41 Dose: 200 mg Documented by: [id number] Admin: 03/06/20 20:38 Dose: 200 mg Documented by: [id number] Admin: 03/05/20 20:58 Dose: 200 mg Documented by: [id number] Admin: 03/04/20 20:36 Dose: 200 mg Documented by: [id number] Admin: 03/03/20 19:41 Dose: 200 mg Documented by: [id number] Admin: 03/02/20 20:12 Dose: 200 mg Documented by: [id number] Atorvastatin Calcium (Atorvastatin 40 Mg Tab) 80 mg PO [facility] Stop: 04/01/20 20:59 Last Admin: 03/09/20 21:08 Dose: 80 mg Documented by: [id number] Admin: 03/08/20 20:33 Dose: 80 mg Documented by: [id number] Admin: 03/07/20 20:44 Dose: 80 mg Documented by: [id number] Admin: 03/06/20 20:39 Dose: 80 mg Documented by: [id number] Admin: 03/05/20 20:57 Dose: 80 mg Documented by: [id number] Admin: 03/04/20 20:37 Dose: 80 mg Documented by: [id number] Admin: 03/03/20 19:43 Dose: 80 mg Documented by: [id number] Admin: 03/02/20 20:11 Dose: 80 mg Documented by: [id number] Bisacodyl (Bisacodyl 5 Mg Tabec) 5 mg PO Q6H PRN PRN Reason: Constipation Stop: 04/01/20 13:41 Last Admin: 03/09/20 21:12 Dose: 5 mg Documented by: [id number] Admin: 03/06/20 20:38 Dose: 5 mg Documented by: [id number] Finasteride (Finasteride 5 Mg Tab) 5 mg PO QAM [facility] Stop: 04/02/20 08:59 Last Admin: 03/10/20 08:13 Dose: 5 mg Documented by: [id number] Admin: 03/09/20 10:09 Dose: 5 mg Documented by: [id number] Admin: 03/08/20 08:20 Dose: 5 mg Documented by: [id number] Admin: 03/07/20 11:30 Dose: 5 mg Documented by: [id number] Admin: 03/06/20 07:53 Dose: 5 mg Documented by: [id number] Admin: 03/05/20 08:04 Dose: 5 mg Documented by: [id number] Admin: 03/04/20 08:00 Dose: 5 mg Documented by: [id number] Admin: 03/03/20 08:16 Dose: 5 mg Documented by: [id number] Gabapentin (Gabapentin 600 Mg Tab) 600 mg PO TID [facility] Stop: 04/06/20 13:59 Last Admin: 03/10/20 08:12 Dose: 600 mg Documented by: [id number] Admin: 03/09/20 21:08 Dose: 600 mg Documented by: [id number] Admin: 03/09/20 12:15 Dose: 600 mg Documented by: [id number] Admin: 03/09/20 09:20 Dose: 600 mg Documented by: [id number] Admin: 03/08/20 20:33 Dose: 600 mg Documented by: [id number] Admin: 03/08/20 13:16 Dose: 600 mg Documented by: [id number] Admin: 03/08/20 08:21 Dose: 600 mg Documented by: [id number] Admin: 03/07/20 20:44 Dose: 600 mg Documented by: [id number] Admin: 03/07/20 13:21 Dose: 600 mg Documented by: [id number] Lorazepam (Ativan) 4 mg in 8 mls @ 4 mls/min IV Q4H PRN PRN Reason: seizure Stop: 04/02/20 21:05 Last Admin: 03/04/20 21:29 Dose: 4 mls/min Documented by: [id number] Admin: 03/03/20 21:10 Dose: 4 mls/min Documented by: [id number] Cefepime HCl 2,000 mg/ Syringe 20 mls @ 5 mls/min IV Q12H KIRSTEN; Protocol Stop: 03/10/20 17:59 Last Admin: 03/10/20 05:14 Dose: 5 mls/min Documented by: [id number] Admin: 03/09/20 16:21 Dose: 5 mls/min Documented by: [id number] Insulin Aspart (Insulin Aspart 100 Units/Ml 3 Ml Pen) 0 units SC ACHS KIRSTEN Stop: 04/02/20 16:29 Last Admin: 03/10/20 08:15 Dose: 11 units Documented by: [id number] Cosigned by: [id number] Admin: 03/09/20 21:08 Dose: 1 units Documented by: [id number] Cosigned by: [id number] Admin: 03/09/20 17:13 Dose: 13 units Documented by: [id number] Cosigned by: [id number] Admin: 03/09/20 12:14 Dose: 18 units Documented by: [id number] Cosigned by: [id number] Admin: 03/09/20 09:18 Dose: 12 units Documented by: [id number] Cosigned by: [id number] Admin: 03/08/20 21:03 Dose: 1 units Documented by: [id number] Cosigned by: [id number] Admin: 03/08/20 18:32 Dose: 16 units Documented by: [id number] Cosigned by: [id number] Admin: 03/08/20 13:13 Dose: 18 units Documented by: [id number] Cosigned by: [id number] Admin: 03/08/20 08:39 Dose: 14 units Documented by: [id number] Cosigned by: [id number] Admin: 03/07/20 20:39 Dose: 5 units Documented by: [id number] Cosigned by: [id number] Admin: 03/07/20 18:09 Dose: 16 units Documented by: [id number] Cosigned by: [id number] Admin: 03/07/20 13:08 Dose: 15 units Documented by: [id number] Cosigned by: [id number] Admin: 03/07/20 09:43 Dose: 6 units Documented by: [id number] Cosigned by: [id number] Admin: 03/06/20 20:41 Dose: 8 units Documented by: [id number] Cosigned by: [id number] Admin: 03/06/20 17:00 Dose: 10 units Documented by: [id number] Cosigned by: [id number] Admin: 03/06/20 12:20 Dose: 9 units Documented by: [id number] Cosigned by: [id number] Admin: 03/06/20 08:29 Dose: 13 units Documented by: [id number] Cosigned by: [id number] Admin: 03/05/20 21:05 Dose: Not Given Documented by: [id number] Cosigned by: [id number] Admin: 03/05/20 17:50 Dose: 9 units Documented by: [id number] Cosigned by: [id number] Admin: 03/05/20 12:30 Dose: 12 units Documented by: [id number] Cosigned by: [id number] Admin: 03/05/20 08:44 Dose: 14 units Documented by: [id number] Cosigned by: [id number] Admin: 03/04/20 20:35 Dose: 4 units Documented by: [id number] Cosigned by: [id number] Admin: 03/04/20 17:23 Dose: Not Given Documented by: [id number] Cosigned by: [id number] Admin: 03/04/20 12:08 Dose: 28 units Documented by: [id number] Cosigned by: [id number] Admin: 03/04/20 08:02 Dose: 37 units Documented by: [id number] Cosigned by: [id number] Admin: 03/03/20 20:30 Dose: 16 units Documented by: [id number] Cosigned by: [id number] Admin: 03/03/20 17:10 Dose: 37 units Documented by: [id number] Cosigned by: [id number] Insulin Glargine (Insulin Glargine Solostar 100 Units/Ml 3 Ml Pen) 50 units SC DAILY KIRSTEN Stop: 04/03/20 08:59 Last Admin: 03/10/20 08:14 Dose: 50 units Documented by: [id number] Cosigned by: [id number] Admin: 03/09/20 09:23 Dose: 50 units Documented by: [id number] Cosigned by: [id number] Admin: 03/08/20 08:40 Dose: 50 units Documented by: [id number] Cosigned by: [id number] Admin: 03/07/20 09:42 Dose: 50 units Documented by: [id number] Cosigned by: [id number] Admin: 03/06/20 08:30 Dose: 50 units Documented by: [id number] Cosigned by: [id number] Admin: 03/05/20 08:05 Dose: 50 units Documented by: [id number] Cosigned by: [id number] Admin: 03/04/20 08:02 Dose: 50 units Documented by: [id number] Cosigned by: [id number] Levetiracetam (Levetiracetam 250 Mg Tab) 750 mg PO BID KIRSTEN Stop: 04/06/20 20:59 Last Admin: 03/10/20 08:12 Dose: 750 mg Documented by: [id number] Admin: 03/09/20 21:08 Dose: 750 mg Documented by: [id number] Admin: 03/09/20 09:20 Dose: 750 mg Documented by: [id number] Admin: 03/08/20 20:33 Dose: 750 mg Documented by: [id number] Admin: 03/08/20 08:19 Dose: 750 mg Documented by: [id number] Admin: 03/07/20 20:42 Dose: 750 mg Documented by: [id number] Miscellaneous (Carbohydrates For Hypoglycemia ) 15 - 30 gm PO UD PRN PRN Reason: Hypoglycemia Treatment Stop: 04/01/20 19:14 Last Admin: 03/04/20 16:29 Dose: 15 gm Documented by: [id number] Polyethylene Glycol (Polyethylene (Miralax) 17 Gm Pack) 17 gm PO DAILY PRN PRN Reason: constipation Stop: 04/01/20 13:41 Last Admin: 03/09/20 09:27 Dose: 17 gm Documented by: [id number] Prednisone (Prednisone 10 Mg Tablet) 10 mg PO DAILY KIRSTEN Stop: 04/04/20 08:59 Last Admin: 03/10/20 08:13 Dose: 10 mg Documented by: [id number] Admin: 03/09/20 09:21 Dose: 10 mg Documented by: [id number] Admin: 03/08/20 08:19 Dose: 10 mg Documented by: [id number] Admin: 03/07/20 07:38 Dose: 10 mg Documented by: [id number] Admin: 03/06/20 07:53 Dose: 10 mg Documented by: [id number] Admin: 03/05/20 08:04 Dose: 10 mg Documented by: [id number] Topiramate (Topiramate 100 Mg Tab) 100 mg PO BID KIRSTEN Stop: 04/01/20 20:59 Last Admin: 03/10/20 08:12 Dose: 100 mg Documented by: [id number] Admin: 03/09/20 21:08 Dose: 100 mg Documented by: [id number] Admin: 03/09/20 09:21 Dose: 100 mg Documented by: [id number] Admin: 03/08/20 20:33 Dose: 100 mg Documented by: [id number] Admin: 03/08/20 08:19 Dose: 100 mg Documented by: [id number] Admin: 03/07/20 20:42 Dose: 100 mg Documented by: [id number] Admin: 03/07/20 07:38 Dose: 100 mg Documented by: [id number] Admin: 03/06/20 20:38 Dose: 100 mg Documented by: [id number] Admin: 03/06/20 07:53 Dose: 100 mg Documented by: [id number] Admin: 03/05/20 20:58 Dose: 100 mg Documented by: [id number] Admin: 03/05/20 08:03 Dose: 100 mg Documented by: [id number] Admin: 03/04/20 20:36 Dose: 100 mg Documented by: [id number] Admin: 03/04/20 08:00 Dose: 100 mg Documented by: [id number] Admin: 03/03/20 19:42 Dose: 100 mg Documented by: [id number] Admin: 03/03/20 08:15 Dose: 100 mg Documented by: [id number] Admin: 03/02/20 20:11 Dose: 100 mg Documented by: [id number] Torsemide (Torsemide 20 Mg Tab) 20 mg PO QAM KIRSTEN Stop: 04/02/20 08:59 Last Admin: 03/08/20 08:19 Dose: 20 mg Documented by: [id number] Admin: 03/07/20 07:37 Dose: 20 mg Documented by: [id number] Admin: 03/06/20 07:53 Dose: 20 mg Documented by: [id number] Admin: 03/05/20 08:04 Dose: 20 mg Documented by: [id number] Admin: 03/04/20 08:00 Dose: 20 mg Documented by: [id number] Admin: 03/03/20 08:16 Dose: 20 mg Documented by: [id number] Trazodone HCl (Trazodone Hcl 50 Mg Tab) 50 mg PO HS PRN PRN Reason: Insomnia Stop: 04/08/20 20:35 Last Admin: 03/09/20 21:08 Dose: 50 mg Documented by: [id number] Vitamin D (Cholecalciferol 1,000 Units 25 Mcg Tab) 2,000 units PO HS KIRSTEN Stop: 04/01/20 20:59 Last Admin: 03/09/20 21:08 Dose: 2,000 units Documented by: [id number] Admin: 03/08/20 20:33 Dose: 2,000 units Documented by: [id number] Admin: 03/07/20 20:42 Dose: 2,000 units Documented by: [id number] Admin: 03/06/20 20:38 Dose: 2,000 units Documented by: [id number] Admin: 03/05/20 20:58 Dose: 2,000 units Documented by: [id number] Admin: 03/04/20 20:38 Dose: 2,000 units Documented by: [id number] Admin: 03/03/20 19:41 Dose: 2,000 units Documented by: [id number] Admin: 03/02/20 20:12 Dose: 2,000 units Documented by: [id number] Warfarin Sodium (Warfarin Sod 7.5 Mg Tab) 7.5 mg PO DAILY@1600 KIRSTEN Stop: 04/01/20 20:59 Last Admin: 03/09/20 16:22 Dose: 7.5 mg Documented by: [id number] Admin: 03/08/20 15:42 Dose: 7.5 mg Documented by: [id number] Admin: 03/07/20 16:31 Dose: 7.5 mg Documented by: [id number] Admin: 03/06/20 16:08 Dose: 7.5 mg Documented by: [id number] Admin: 03/05/20 15:49 Dose: 7.5 mg Documented by: [id number] Admin: 03/04/20 15:39 Dose: 7.5 mg Documented by: [id number] Admin: 03/03/20 15:43 Dose: 7.5 mg Documented by: [id number] Admin: 03/02/20 20:08 Dose: 7.5 mg Documented by: [id number] Coding Level of Care Code 23415 U Intl Hosp Care Lvl 3
[2020-03-10] MEDS ORDERED: bisacodyL 10 MG SUPP PR STA (11:09)
--- NOTE | 2020-03-10 11:30 | Pharmacy Report ---
Glycemic Control Progress Note - Date of Service March 10, 2020 - Scope Glycemic Pharmacist consulted for glycemic control to write orders per [facility] inpatient glycemic control protocol. - Objective Accuchecks BSG(last 24 hours):: 03/09/20 03/09/20 03/09/20 12:11 17:11 21:05 Glucose POC Glucose 220 H 132 H 150 H 03/10/20 03/10/20 07:17 08:04 Glucose 156 H POC Glucose 169 H - Recent Pertinent Medications The patient is currently receiving: * Basal insulin: Lantus 50 units every 24 hours * Correctional Insulin: Novolog Correction per scale ACHS Goal Range: Low 110 mg/dL - High 140 mg/dL Correction Factor: 15 mg/dL/unit * Prandial insulin: Per carb ratio of 1 unit per 4 grams CHO consumed - Outpatient Anti-Diabetic Meds Tresiba 50 units BID plus Novolog SS Trulicity (last documented dose 02/28/20) - Assessment & Plan ASSESSMENT: * See progress note from 03/02/20 for more background info, in short: * Pt receiving SQ basal bolus insulin regimen for hyperglycemia secondary to baseline DM (outpatient regimen on hold). Patient currently on cefepime and receiving home dose of prednisone 10 mg daily. * Patient is currently receiving an average of 94 units of insulin per day * 50 units of basal insulin * 44 units of prandial/correctional insulin * BSGs ranging 132 - 220 mg/dl over the past 24hrs * Changes needed to insulin regimen: * AM Fasting BSG = 169 mg/dl. This is slightly goal range for patient based on inpatient targets and co-morbidities. Will increase basal regimen by 10% tomorrow. * Post-prandial BSGs were elevated. Appears patient requires more carbohydrate coverage which would be appropriate considering prednisone use. Tighten CR. CF appears to be appropriate. * Total daily dose = ~100 units. Increased bolus and basal. PLAN FOR INPATIENT GLYCEMIC CONTROL: * INCREASING Lantus to 55 units SQ Daily * Continuing correction factor of 15 mg/dl/unit * TIGHTENING carb ratio to 1 unit per 3 grams CHO consumed * Continuing goal range of Low 110 mg/dL - High 140 mg/dL RECOMMENDATIONS FOR DISCHARGE: * Patient's HbA1C is well controlled for his comorbid conditions. * Concern with repeated falls at home --- unsure if this is hypoglycemia in duced. * Would recommend close follow-up with PCP or clinical research specialist to track blood sugars and adjust as appropriate. Thank you.
--- NOTE | 2020-03-10 14:05 | Hospitalist Progress Note ---
Date of Service March 10, 2020 Assessment & Plan (1) Seizure-like activity: Code purple 03/07 am with seizure like activity - increased po keppra per Dr. Sheikh's recommendation and kept topamax dose. Seizure like activity again on 03/09. No post ictal period, no incontinence. Patient was alert and oriented but reported feeling confused afterward. 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 Discussed with neurology at [place]. They did not recommend he transfer, felt that he could remain here with follow up at his previously planned outpatient appointment in [place] in 10 days. They did recommend psychiatry see patient which was done however they are not able to make a determination on pseudoseizure without full workup for seizures which will be completed outpatient. Prolactin immediately after event on 03/07 was normal and according to nih "For tonic-clonic seizures sensitivity was 100% and for complex partial seizures sensitivity was 84.4%. Overall, elevated prolactin occurred in 84.4% of patients with epileptic events and 28.8% of patients with nonepileptic events" (2) Pneumonia: Patient has abnormal CT chest was placed on vanco and cefepime., MRSA negative so vanc stopped--> will complete one week 03/10/20 negative procalcitonin and negative biofire CT Chest 03/02/20 IMPRESSION: 1. Increase in lower lung predominant centrilobular and groundglass nodules since abdominal CT of January 25, 2020. This favors an infectious process. 2. No right lung nodule to correspond to the possible finding on chest radiograph. This was artifactual. (3) Chronic kidney disease, stage 3a: Resolved Acute on chronic kidney disease. creatinine is 1.26 Repeat bmp am (4) Interstitial lung disease: continue nebs as needed (5) CAD (coronary artery disease): Continue atorvastatin. - Patient is not on ASA, ALMA-inhibitor or BB (states he cannot tolerate beta- blockers). (6) Migraine: chronic, ongoing since previous hospital admission (7) PAF (paroxysmal atrial fibrillation): rate controlled without medications . continue coumadin. INR remains therapeutic checking every 48 hrs (8) Aortic ectasia, thoracic: As seen on CT: Ectatic ascending aorta, measuring 4.2 cm. Control blood pressure, patient is on appropriate statin Recommend continued surveillance outpatient. Per UpToDate: TAA 3.5 to 4.4 cm: Annual CT or MR angiography, echocardiogram to follow valvular disease (if needed) (9) Pulmonary nodule: On CT: Low suspicion 6 mm right upper lobe pulmonary nodule. This is likely benign. A follow up chest CT in 6 months to ensure stability is recommended. 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 Bradford is feeling better today but still has a headache. His vision is better. No seizure events overnight. ROS Constitutional: no chills, aches, sweats or fever Respiratory: no sob,cough, sputum, or wheezing Cardiac: no chest pain, palpitations, edema, orthopnea or lightheadedness GI: no abdominal pain, nausea, vomiting, diarrhea or constipation : no dysuria or hesitancy Extremities: no joint pain or weakness Skin: no rash All other systems reviewed and negative Physical Exam Physical Exam: General: no distress Eyes: normal inspection, PERLL Respiratory: chest non tender, clear to auscultation, normal breath sounds, no respiratory distress, no accessory muscle use Cardiac: regular rate and rhythm, no rub or gallop, no murmur, no edema, no jvd GI/: active bowel sounds, no abd pain or tenderness, soft, non distended Extremities: normal range of motion, normal strength, non tender Neuro/Psych: alert and oriented x 3, normal mood and affect Skin: normal color, dry Results & Data Results & Data ([facility]) Vital Signs (Past 12 Hours) Vital Signs Temp Pulse Pulse Resp BP Pulse Ox 03/10/20 10:45 36.5 C 62 18 123/72 95 03/10/20 07:24 36.3 C L 78 18 127/76 97 03/10/20 03:44 36.9 C 77 19 132/74 97 PG Care Time/CCT Total # of Minutes Spent Total Time Spent with Patient: Total time spent is greater than 50% in coordination of care (as documented) at patient's floor/unit and/or counseling patient: Coding Level of Care Code 51248 Subseq Hosp Care Lvl 2 Diagnoses Seizure-like activity R56.9 Pneumonia J18.9 Chronic kidney disease, stage 3a N18.3 Interstitial lung disease J84.9 CAD (coronary artery disease) I25.10 Coronary Disease-Associated Artery/Lesion type: [place]ig artery [place] vs. transplanted heart: craig heart Associated angina: without angina Migraine G43.909 PAF (paroxysmal atrial fibrillation) I48.0 Aortic ectasia, thoracic I77.810 Pulmonary nodule R91.1 Hypokalemia E87.6 Aortic valve replaced Z95.2 Polymyositis M33.20 Diabetes E11.42; Z79.4 Diabetes mellitus type: type 2 Diabetes mellitus fdc insulin use: with fdc use Diabetes mellitus complication status: with neurologic complications Diabetes mellitus complication detail: with polyneuropathy DVT prophylaxis Z29.9 (1) CAD (coronary artery disease) Coronary Disease-Associated Artery/Lesion type: [place] artery [place] vs. transplanted heart: craig heart Associated angina: without angina Qualified Code(s): I25.10 - Atherosclerotic heart disease of [place] coronary artery without angina pectoris (2) Diabetes Diabetes mellitus type: type 2 Diabetes mellitus predatory animal exterminator insulin use: with fdc use Diabetes mellitus complication status: with neurologic complications Diabetes mellitus complication detail: with polyneuropathy Qualified Code(s): E11.42 - Type 2 diabetes mellitus with diabetic polyneuropathy; Z79.4 - [facility]CI (current) use of insulin
[2020-03-10] MEDS: ALBUT/IPRATROP 3MG/0.5MG NEB 3 ML VIAL NEB PRN (15:08)
[2020-03-10] MEDS: WARFARIN SOD 7.5 MG TAB PO SCH (16:56)
[2020-03-10] MEDS: allopurinoL 100 MG TAB PO SCH (21:04)
[2020-03-10] MEDS: CHOLECALCIFEROL 1,000 UNITS 25 MCG TAB PO SCH (21:04)
[2020-03-10] MEDS: ATORVASTATIN 40 MG TAB PO SCH (21:04)
[2020-03-10] MEDS: POLYETHYLENE (MIRALAX) 17 GM PACK PO PRN (21:04)
[2020-03-11 06:02] LABS: Hematocrit (blood only) 34.5 % (42-52); Mean Corpuscular Hemoglobin 28.8 pg (25-34); Mean Corpuscular Hgb Conc 31.9 g/dL (32-36); Mean Corpuscular Volume 90.3 fL (80-100); Mean Platelet Volume 9.5 fL (7.4-10.4); Platelet Count 129 K/uL (130-400); RDW Coefficient of Variation 16.9 % (11.5-14.5); RDW Standard Deviation 55.9 fL (36.4-46.3); Red Blood Count 3.82 M/uL (4.7-6.1); White Blood Count 4.87 K/uL (4.8-10.8)
[2020-03-11 06:11] LABS: INR 2.3 (0.9-1.1); Prothrombin Time 23.5 Seconds (9.0-12.0)
[2020-03-11 06:30] LABS: BUN Creatinine Ratio 21.5 (10-20); Calcium 8.8 mg/dl (8.5-10.1); Creatinine Clr Calc Pharmacy 59.4 ml/min; Est GFR (Non-African American) 50.9; Magnesium 2.4 mg/dl (1.8-2.4); Potassium 3.9 mmol/L (3.5-5.1)
[2020-03-11] MEDS: INSULIN ASPART 100 UNITS/ML 3 ML PEN SC SCH ×4 (08:18→20:35)
[2020-03-11] MEDS: INSULIN GLARGINE SOLOSTAR 100 UNITS/ML 3 ML PEN SC SCH (08:20)
[2020-03-11] MEDS: levETIRAcetam 250 MG TAB PO SCH ×2 (08:20→20:31)
[2020-03-11] MEDS: FINASTERIDE 5 MG TAB PO SCH (08:21)
[2020-03-11] MEDS: GABAPENTIN 600 MG TAB PO SCH ×3 (08:21→20:31)
[2020-03-11] MEDS: bisacodyL 5 MG TABEC PO PRN (08:23)
[2020-03-11] MEDS: TOPIRAMATE 100 MG TAB PO SCH ×2 (08:23→20:31)
[2020-03-11] MEDS: predniSONE 10 MG TABLET PO SCH (08:23)
--- NOTE | 2020-03-11 10:07 | XRay Report ---
XR chest 2V PA/lateral CLINICAL HISTORY: crackles left base COMPARISON STUDY: Chest radiograph and chest CT March 02, 2020. FINDINGS: Median sternotomy wires and prosthetic aortic valve are noted. There is moderate cardiomega ly. A small right pleural effusion is noted. There is no pneumothorax. Right lower lung airspace opac ity is present. IMPRESSION: 1. Right lower lung airspace opacity which favors an infectious process. 2. Cardiomegaly without evidence for pulmonary edema. ACT 112: Negative or not required by law. Electronically signed by: John Paul Drummond M.D. 03/11/2020 10:06 AM
--- NOTE | 2020-03-11 14:15 | Hospitalist Progress Note ---
Date of Service March 11, 2020 Assessment & Plan (1) Seizure-like activity: Code purple 03/07 am with seizure like activity - increased po keppra per Dr. Sheikh's recommendation and kept topamax dose. Seizure like activity again on 03/09. No post ictal period, no incontinence. Patient was alert and oriented but reported feeling confused afterward. 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 Discussed with neurology at [place]. They did not recommend he transfer, felt that he could remain here with follow up at his previously planned outpatient appointment in [place] in 10 days. They did recommend psychiatry see patient which was done however they are not able to make a determination on pseudoseizure without full workup for seizures which will be completed outpatient. Prolactin immediately after event on 03/07 was normal and according to nih "For tonic-clonic seizures sensitivity was 100% and for complex partial seizures sensitivity was 84.4%. Overall, elevated prolactin occurred in 84.4% of patients with epileptic events and 28.8% of patients with nonepileptic events" (2) Pneumonia: Patient has abnormal CT chest was placed on vanco and cefepime., MRSA negative so vanc stopped--> will complete one week 03/10/20 negative procalcitonin and negative biofire CT Chest 03/02/20 IMPRESSION: 1. Increase in lower lung predominant centrilobular and groundglass nodules since abdominal CT of January 25, 2020. This favors an infectious process. 2. No right lung nodule to correspond to the possible finding on chest radiograph. This was artifactual. (3) Chronic kidney disease, stage 3a: Resolved Acute on chronic kidney disease. Repeat bmp am (4) Interstitial lung disease: continue nebs as needed (5) CAD (coronary artery disease): Continue atorvastatin. - Patient is not on ASA, ALMA-inhibitor or BB (states he cannot tolerate beta- blockers). (6) Migraine: chronic, ongoing since previous hospital admission (7) PAF (paroxysmal atrial fibrillation): rate controlled without medications . continue coumadin. INR remains therapeutic checking every 48 hrs (8) Aortic ectasia, thoracic: As seen on CT: Ectatic ascending aorta, measuring 4.2 cm. Control blood pressure, patient is on appropriate statin Recommend continued surveillance outpatient. Per UpToDate: TAA 3.5 to 4.4 cm: Annual CT or MR angiography, echocardiogram to follow valvular disease (if needed) (9) Pulmonary nodule: On CT: Low suspicion 6 mm right upper lobe pulmonary nodule. This is likely benign. A follow up chest CT in 6 months to ensure stability is recommended. (10) Hypokalemia: replaced (11) Aortic valve replaced: Mechanical Continue warfarin, INR every other day (12) Polymyositis: Takes chronic prednisone for this (13) Diabetes: Type II Last A1c 7.4 Pharmacy glycemic consult (14) Dysphagia: Consult speech therapy - minced and moist slippery diet, aspiration precautions, scheduled video swallow tomorrow (15) Nonsustained ventricular tachycardia: 3 - 5 beat runs on monitor. No symptoms. Patient reportedly not able to tolerate beta blockers. Most recent echo without reduced EF. (16) DVT prophylaxis: Warfarin Admission and Anticipated Discharge Date Admission Date: March 02, 2020 Subjective Mr. Bradford feels better today, vision is better, feels his speech and mentation is better. ROS Constitutional: no chills, aches, sweats or fever Respiratory: no sob,cough, sputum, or wheezing Cardiac: no chest pain, palpitations, edema, orthopnea or lightheadedness GI: no abdominal pain, nausea, vomiting, diarrhea or constipation : no dysuria or hesitancy Extremities: generalized weakness Skin: no rash All other systems reviewed and negative Physical Exam Physical Exam: General: no distress Eyes: normal inspection, PERLL Respiratory: chest non tender, clear to auscultation, normal breath sounds, no respiratory distress, no accessory muscle use Cardiac: regular rate and rhythm, no rub or gallop, no murmur, no edema, no jvd GI/: active bowel sounds, no abd pain or tenderness, soft, non distended Extremities: normal range of motion, generalized weakness, non tender Neuro/Psych: alert and oriented x 3, normal mood and affect Skin: normal color, dry Results & Data Results & Data ([facility]) Vital Signs (Past 12 Hours) Vital Signs Temp Pulse Resp BP Pulse Ox 03/11/20 11:08 36.9 C 68 18 116/77 94 03/11/20 08:02 37.1 C 67 18 135/84 97 03/11/20 03:07 36.7 C 84 18 96/56 L 92 PG Care Time/CCT Total # of Minutes Spent Total Time Spent with Patient: Total time spent is greater than 50% in coordination of care (as documented) at patient's floor/unit and/or counseling patient: Coding Level of Care Code 74546 Subseq Hosp Care Lvl 2 Diagnoses Seizure-like activity R56.9 Pneumonia J18.9 Chronic kidney disease, stage 3a N18.3 Interstitial lung disease J84.9 CAD (coronary artery disease) I25.10 Coronary Disease-Associated Artery/Lesion type: [place] artery [place] vs. transplanted heart: [place] heart Associated angina: without angina Migraine G43.909 PAF (paroxysmal atrial fibrillation) I48.0 Aortic ectasia, thoracic I77.810 Pulmonary nodule R91.1 Hypokalemia E87.6 Aortic valve replaced Z95.2 Polymyositis M33.20 Diabetes E11.42; Z79.4 Diabetes mellitus type: type 2 Diabetes mellitus terminologist insulin use: with terminologist use Diabetes mellitus complication status: with neurologic complications Diabetes mellitus complication detail: with polyneuropathy Dysphagia R13.10 Nonsustained ventricular tachycardia I47.2 DVT prophylaxis Z29.9 (1) CAD (coronary artery disease) Coronary Disease-Associated Artery/Lesion type: [place] artery [place] vs. transplanted heart: [place] heart Associated angina: without angina Qualified Code(s): I25.10 - Atherosclerotic heart disease of [place] coronary artery without angina pectoris (2) Diabetes Diabetes mellitus type: type 2 Diabetes mellitus terminologist insulin use: with terminologist use Diabetes mellitus complication status: with neurologic complications Diabetes mellitus complication detail: with polyneuropathy Qualified Code(s): E11.42 - Type 2 diabetes mellitus with diabetic polyneuropathy; Z79.4 - bed bug exterminator (current) use of insulin
[2020-03-11] MEDS: ALBUT/IPRATROP 3MG/0.5MG NEB 3 ML VIAL NEB PRN (15:00)
[2020-03-11] MEDS: CARBOHYDRATES FOR HYPOGLYCEMIA PO PRN (16:33)
[2020-03-11] MEDS: WARFARIN SOD 7.5 MG TAB PO SCH (17:21)
[2020-03-11] MEDS: ATORVASTATIN 40 MG TAB PO SCH (20:31)
[2020-03-11] MEDS: CHOLECALCIFEROL 1,000 UNITS 25 MCG TAB PO SCH (20:31)
[2020-03-11] MEDS: allopurinoL 100 MG TAB PO SCH (20:31)
[2020-03-12 07:04] LABS: Hematocrit (blood only) 35.1 % (42-52); Hemoglobin 10.9 g/dL (14.0-18.0); Mean Corpuscular Hemoglobin 28.5 pg (25-34); Mean Corpuscular Hgb Conc 31.1 g/dL (32-36); Mean Corpuscular Volume 91.6 fL (80-100); Mean Platelet Volume 9.9 fL (7.4-10.4); Platelet Count 145 K/uL (130-400); RDW Coefficient of Variation 16.9 % (11.5-14.5); RDW Standard Deviation 56.2 fL (36.4-46.3); Red Blood Count 3.83 M/uL (4.7-6.1); White Blood Count 4.39 K/uL (4.8-10.8)
[2020-03-12 07:31] LABS: BUN Creatinine Ratio 20.3 (10-20); Calcium 8.9 mg/dl (8.5-10.1); Creatinine Clr Calc Pharmacy 65.2 ml/min; Est GFR (African American) 64.1; Est GFR (Non-African American) 55.3; Potassium 3.9 mmol/L (3.5-5.1)
[2020-03-12] MEDS: INSULIN ASPART 100 UNITS/ML 3 ML PEN SC SCH (08:23)
[2020-03-12] MEDS: GABAPENTIN 600 MG TAB PO SCH ×2 (08:23→15:00)
[2020-03-12] MEDS: predniSONE 10 MG TABLET PO SCH (08:25)
[2020-03-12] MEDS: INSULIN GLARGINE SOLOSTAR 100 UNITS/ML 3 ML PEN SC SCH (08:25)
[2020-03-12] MEDS: levETIRAcetam 250 MG TAB PO SCH (08:26)
[2020-03-12] MEDS: TOPIRAMATE 100 MG TAB PO SCH (08:26)
[2020-03-12] MEDS: FINASTERIDE 5 MG TAB PO SCH (08:34)
[2020-03-12] MEDS ORDERED: LINZESS PO SCH (09:00)
--- NOTE | 2020-03-12 09:37 | Pharmacy Report ---
Pharmacy Glycemic Short Note 2 - Date of Service March 12, 2020 - Glycemic Short BSG Results (Last 24 hours): Outpatient Anti-diabetic Regimen: * Tresiba 50 units SC BID * Novolog sliding scale TIDM * Trulicity 1.5 mg SC on Saturdays * Of note: patient is on chronic prednisone 10 mg PO qAM and 5 mg PO qPM * A1c = 7.4 % (02/06/20) ASSESSMENT: 03/12: * Xavi received a total of 105 units of insulin yesterday * 55 units basal + 50 units bolus * BSGs were [id number] mg/dL - somewhat controlled * Did have an episode of hypoglycemia last evening * BSG was 66 mg/dL and then came up to 78 mg/dL after receiving 15 gms CHO * Likely secondary to too aggressive of a carb ratio at lunch * Will keep CR the same with breakfast as patient tends to have lunchtime hyperglycemia but will loosen CR throughout the rest of the day * Fasting BSG this AM was 146 mg/dL - acceptable * No change in basal insulin PLAN FOR INPATIENT GLYCEMIC CONTROL: * Basal insulin - no change * Lantus 55 units SQ daily in AM * Bolus insulin - loosened CR w/ lunch, dinner and HS * NovoLog per scale ACHS or Q6hrs while NPO * Goal Range: Low 110 mg/dL - High 140 mg/dL * Correction Factor: 15 mg/dL/unit * CHO ratio: 1 unit for every 3 g CHO consumed with breakfast * CHO ratio: 1 unit for every 4 g CHO consumed with lunch, dinner, bedtime PLAN FOR OUTPATIENT CONTROL: * A1c 7.4% - close to goal <7%. Reasonable to continue home regimen on discharge as long as no contraindications present and patient not experiencing hypoglycemia outpatient * Patient previously on chronic prednisone 10 mg qAM, 5 mg qPM - would recommend close monitoring of BSGs outpatient if regimen is different on discharge as adjustments may be necessary
[2020-03-12] MEDS ORDERED: INSULIN ASPART 100 UNITS/ML 3 ML PEN SC SCH (11:30)
--- NOTE | 2020-03-12 13:45 | Fluoroscopy Report ---
FL video swallow CLINICAL HISTORY: 74 years-old Male with assess for aspiration. TECHNIQUE: Video fluoroscopic evaluation of swallowing was performed in the AP and lateral projection s by the speech pathology staff. The patient is fed nectar-thick and thin liquid barium, a barium coa stefano wafer, and barium pudding. FLUOROSCOPY TIME: 3.3 minutes. COMPARISON STUDY: Chest CT 03/02/2020 FINDINGS: There is aspiration with thin liquid barium. Esophageal dysmotility with nectar thick and p udding consistencies. Vallecular retention is noted with pudding and solid consistencies. Cervical sp ine fusion. Prior median sternotomy. IMPRESSION: 1. Aspiration with thin liquid barium. 2. Please see the speech pathologist report for detailed findings and recommendations. ACT 112: Negative or not required by law. Electronically signed by: Terry Orozco M.D. 03/12/2020 1:44 PM
--- NOTE | 2020-03-12 14:34 | Discharge Summary ---
Date of Service March 12, 2020 Admission HPI Per Admitting Provider This is a 74 yo male who arrives to the ER complaining of SOB. He reports being recently discharged from [facility]. He reports having a non productive cough for 5-6 days. Pain in his chest for 4 days, and has required rescue inhalers for past 3 days. He reports that each passing day he feels more SOB and is now requiring 2 duoneb treatments and 4 rescue inhaler doses. While in the ER, CT scan of chest showed larger nodules which may be infectious, patient will be admitted for PNA (nosocomial) Principal Diagnosis Pneumonia Discharge Exam Constitutional WD/WN, vitals as above Respiratory normal respiratory effort, lungs clear to auscultation Cardiovascular RRR, no murmur, no edema Gastrointestinal (Abdomen) normal bowel sounds, soft, nontender, no hepatosplenomegaly Musculoskeletal no cyanosis or clubbing, extremities motor strength 5/5 Skin no rashes, warm and dry Neurologic moves all extremities and awake Psychiatric A+Ox3, euthymic affect Discharge Data Allergies Allergy/AdvReac Type Severity Reaction Status Date / Time Iodinated Contrast Media Allergy Severe Anaphylaxis Verified 03/02/20 10:23 shellfish derived Allergy Severe Anaphylaxis Verified 03/02/20 10:23 Tetanus Vaccines and Toxoid Allergy Unknown Unknown Verified 03/02/20 10:23 Consultations 03/02/20 12:47 ED Decision to Admit Stat 03/09/20 12:38 Consult Psychiatry Routine Ordered Studies 03/02/20 10:41 CT chest wo con Stat 03/12/20 13:00 FL video swallow Routine Hospital Course (1) Seizure-like activity: Code purple 03/07 am with seizure like activity - increased po keppra per Dr. Sheikh's recommendation and kept topamax dose. Seizure like activity again on 03/09. No post ictal period, no incontinence. Patient was alert and oriented but reported feeling confused afterward. 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 Discussed with neurology at [place]. They did not recommend he transfer, felt that he could remain here with follow up at his previously planned outpatient appointment in [place] in 10 days. They did recommend psychiatry see patient which was done however they are not able to make a determination on pseudoseizure without full workup for seizures which will be completed outpatient. Prolactin immediately after event on 03/07 was normal and according to nih "For tonic-clonic seizures sensitivity was 100% and for complex partial seizures sensitivity was 84.4%. Overall, elevated prolactin occurred in 84.4% of patients with epileptic events and 28.8% of patients with nonepileptic events" (2) Pneumonia: Patient has abnormal CT chest was placed on vanco and cefepime., MRSA negative so vanc stopped--> will co mpleted one week 03/10/20 negative procalcitonin and negative biofire, negative COVID on 03/11 CT Chest 03/02/20 IMPRESSION: 1. Increase in lower lung predominant centrilobular and groundglass nodules since abdominal CT of January 25, 2020. This favors an infectious process. 2. No right lung nodule to correspond to the possible finding on chest radiograph. This was artifactual. (3) Chronic kidney disease, stage 3a: Resolved Acute on chronic kidney disease. Repeat bmp am (4) Interstitial lung disease: continue nebs as needed (5) CAD (coronary artery disease): Continue atorvastatin. - Patient is not on ASA, ALMA-inhibitor or BB (states he cannot tolerate beta- blockers). (6) Migraine: chronic, ongoing since previous hospital admission (7) PAF (paroxysmal atrial fibrillation): rate controlled without medications . continue coumadin. 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 Control blood pressure, patient is on appropriate statin Recommend continued surveillance outpatient. Per UpToDate: TAA 3.5 to 4.4 cm: Annual CT or MR angiography, echocardiogram to follow valvular disease (if needed) (9) Pulmonary nodule: On CT: Low suspicion 6 mm right upper lobe pulmonary nodule. This is likely benign. A follow up chest CT in 6 months to ensure stability is recommended. 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 Per speech pathologist the aspiration occured with a straw so no changes to diet just avoid straws. (15) Nonsustained ventricular tachycardia: 3 - 5 beat runs on monitor. No symptoms. Patient reportedly not able to tolerate beta blockers. Most recent echo without reduced EF. (16) DVT prophylaxis: Warfarin Total Time Total Time Spent Total Time Spent (In Minutes): greater than 30 minutes Discharge Plan Discharge Items Patient Disposition: Transfer Inpatient Rehab Fac Reason For Visit: SOB/WORSENING NODULES IN LUNG Discharge Diagnosis: Pneumonia Condition on Discharge: Good Activity: Resume your previous activity Activity Comment: gradually as tolerated Non-emergency contact: Primary Care Provider Call non-emergency contact if: you have any medication questions and your symptoms worsen Follow-up/Referrals: Sadiq Michael MD [Primary Care Provider] - Diet: Carb Consistent or DM2 and Heart Healthy Diet Comment: aspiration precautions, no straws Addtl Attending Provider Instructions: (1) Seizure-like activity: Code purple 11/8 am with seizure like activity - increased oral keppra per Dr. Sheikh's from neurology recommendation and kept topamax dose. Seizure like activity again on 03/09. None since then. Discussed with neurology at [place]. They did not recommend he transfer, felt that he keep his previously planned outpatient appointment in [place] in 8 days. (2) Pneumonia: Abnormal CT chest Completed one week of cefepime on 03/10/20. MRSA swab of the nares was negative Negative procalcitonin, negative biofire, negative COVID on 03/11 (3) Chronic kidney disease, stage 3a: Kidney function at baseline (4) Interstitial lung disease: continue nebs as needed (5) CAD (coronary artery disease): Continue atorvastatin. Not on aspiring, ALMA-inhibitor or beta amor (states he cannot tolerate beta- blockers). (6) Migraine: chronic, ongoing since previous hospital admission in late december (7) PAF (paroxysmal atrial fibrillation): rate controlled without medications . continue coumadin. 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 Control blood pressure, patient is on appropriate statin Recommend continued surveillance outpatient. Per UpToDate: TAA 3.5 to 4.4 cm: Annual CT or MR angiography, echocardiogram to follow valvular disease (if needed) (9) Pulmonary nodule: On CT: Low suspicion 6 mm right upper lobe pulmonary nodule. This is likely benign. A follow up chest CT in 6 months to ensure stability is recommended. 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 (15) Nonsustained ventricular tachycardia: 3 - 5 beat runs on monitor. No symptoms. Patient reportedly not able to tolerate beta blockers. Most recent echo without reduced EF. Pending Studies at Discharge: No Stand-Alone Forms: [facility] Skilled Items Patient informed of condition?: Yes DNR: No Discharge Level of Care: Acute rehab Communicable Disease: No Discharge Prognosis: Stable Lines: None Urinary Catheter: No Medications and DC Order Prescriptions: Continued Nurtec ODT 75 mg tablet,disintegrating 75 mg PO .COMPLEX 30 Days Qty: 8 RF: 3 topiramate 100 mg tablet 100 mg PO BID Qty: 60 RF: 2 warfarin 7.5 mg tablet 7.5 mg PO HS RF: 0 atorvastatin 80 mg Tablet 80 mg PO HS RF: 0 ipratropium-albuterol 0.5 mg-3 mg(2.5 mg base)/3 mL Solution For Nebulization 3 ml INHALATION QID PRN (Reason: Shortness Of Breath Or Wheezing) RF: 0 torsemide 20 mg Tablet 20 mg PO QAM RF: 0 trazodone 50 mg Tablet 50 mg PO HS PRN (Reason: Sleep) RF: 0 azithromycin 250 mg Tablet 250 mg PO .MOWEFR@QAM RF: 0 psyllium Packet 1 packet PO QAM RF: 0 prednisone 5 mg Tablet See Rx Instructions .ROUTE .COMPLEX RF: 0 allopurinol 100 mg Tablet 200 mg PO HS RF: 0 nitroglycerin 0.4 mg Tablet, Sublingual 0.4 mg sublingual DIRECTED PRN (Reason: Chest Pain) RF: 0 albuterol sulfate [Ventolin HFA] 90 mcg/actuation Hfa Aerosol Inhaler 2 puff INHALATION Q4H PRN (Reason: Wheezing) RF: 0 finasteride 5 mg Tablet 5 mg PO QAM RF: 0 insulin aspart U-100 100 unit/mL (3 mL) Insulin Pen See Rx Instructions .ROUTE .COMPLEX RF: 0 Trulicity 1.5 mg/0.5 mL Pen Injector 1.5 mg SUBCUT SA RF: 0 cholecalciferol (vitamin D3) [Vitamin D3] 50 mcg (2,000 unit) Capsule 2,000 unit PO HS RF: 0 polyethylene glycol 3350 [Miralax] 17 gram Powder In Packet 17 g PO DAILY PRN (Reason: constipation) Qty: 30 RF: 0 magnesium hydroxide [Milk of Magnesia] 400 mg/5 mL Suspension 30 ml PO Q6H PRNQty: 0 RF: 0 bisacodyl 5 mg Tablet,Delayed Release (Dr/Ec) 5 mg PO Q6H PRNQty: 0 RF: 0 Tresiba FlexTouch U-200 200 unit/mL (3 mL) Insulin Pen 50 unit SUBCUT QPM Qty: 0 RF: 0 uymqemn-bzniesxiw-sbpx 333-133-5 mg Tablet 1 tab PO HS RF: 0 Changed Linzess 145 mcg capsule 145 mcg PO QAM Qty: 30 RF: 0 gabapentin 600 mg Tablet 600 mg PO TID 30 Days Qty: 60 RF: 2 levetiracetam [Keppra] 500 mg Tablet 750 mg PO BID Qty: 60 RF: 0 Discharge Orders: Discharge Order (Routine); Ordered 03/12/20 Ordered By: Shamika Terry Admission Data Admit Date/Time: 03/02/20 13:39 Attending Provider: Russell Ram Admit Provider: [place] Primary Care Provider: Sadiq Michael Other Providers: [facility] ; [place] ; Chelita Espino Other Interventions: Discharge Summary Assessment (RN) Last Done: 03/12/20 15:04 Supervising Physician Co-Signing Physician Notes Patient seen and examined on the day of discharge. I agree with the discharge summary by Shamika MCNALLY. I have reviewed the chart including labs, imaging and plans for discharge. 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
[2020-03-12] MEDS: WARFARIN SOD 7.5 MG TAB PO SCH (16:22)
[2020-03-13] MEDS ORDERED: INSULIN ASPART 100 UNITS/ML 3 ML PEN SC SCH (07:30)
== END 2020-03-12 16:20 | DRG 194 ==
LOC: ED 08:25 → 2W 13:39 → SUATTDRO 13:39 → INTOOBSV 13:39 → 2W 17:42 → 2N 03-03 15:46 → 3W 03-06 22:34 → 2S 03-09 11:03

== ENCOUNTER 2020-05-28 14:38 | Observation (INO) ==
[2020-05-28] MEDS ORDERED: ACETAMINOPHEN 1000 MG/100 ML IV IV STA (15:37)
--- NOTE | 2020-05-28 15:43 | Emergency Department Note ---
Impression & Plan Syncope, Weakness, Lower back pain, Acute head trauma ED Provider Note NAME: OSBALDO AGUILAR AGE: 75 SEX: M : 1945 ARRIVES VIA: Ambulance INFORMANT: [Patient][ems, nurses] ED PROVIDER(S): [Tan Lowe MD] CHIEF COMPLAINT: Fall HISTORY OF PRESENT ILLNESS: The patient is a 75-year-old male who states that he fell in his room. He does not remember the events. He was alone he states. He was brought by ambulance. He states that he has been having lower back pain for the last week. He has been seeing physical therapy but lately, PT has not helped. Patient denies any fever, cough or congestion. There is no chest pain. He has had no vomiting, diarrhea or urinary complaints. Patient states that since falling, he has a posterior headache, increased lower back pain and some pelvis pain. The pain is all moderate in severity. Of note, the patient is on Coumadin. The patient has a seizure history, he states this was not a seizure. He thinks he passed out standing. He does not recall being dizzy or short of breath or feeling lightheaded prior to collapsing. Of note, no Covid exposures or symptoms. REVIEW OF SYSTEMS: See HPI for pertinent positives and negatives. A total of ten systems were reviewed and were otherwise negative. PMHx/PSHx: See Below SOCIAL HISTORY: See Below. PHYSICAL EXAM: GENERAL: Patient is in no acute distress. HEENT: No acute trauma, normocephalic atraumatic, mucous membranes moist, no nasal congestion, no scleral icterus. NECK: No stridor, no adenopathy, nontender posterior C-spine. LUNGS: Clear to auscultation bilaterally, no wheeze, no rhonchi, breath sounds equal. Chest: Nontender chest wall. HEART: Without murmurs gallops or rubs, irregular rhythm, normal rate. ABDOMEN: Soft, nontender, bowel sounds positive, no hernias, no peritonitis. EXTREMITIES: No cyanosis, mild bilateral pedal edema, full range of motion of all the joints without pain or difficulty, no signs for acute trauma. NEUROLOGIC: Oriented x 3, no acute motor or sensory deficits, no focal weakness. SKIN: No rash, no jaundice, no diaphoresis. Back: Exam was not done as the patient was too uncomfortable to roll. DIFFERENTIAL DIAGNOSIS: Infection, dehydration, metabolic abnormality, hypo/hyperglycemia, electrolyte disturbance, anemia, hypoxia, intracranial bleeding, lumbar fracture, pelvic fracture, cardiac sources, intracerebral event, toxicologic issues, stroke, TIA, as well as other pathologies. EMERGENCY DEPARTMENT COURSE/PROCEDURES: ECG: Indication was syncope and collapse. The ECG shows what appears to be a sinus rhythm with PACs. There is some significant baseline artifact. The rate is 65. There is no ST elevation, no PVCs. There is some nonspecific ST changes laterally. Compared to an ECG from 22 March 2020, the nonspecific ST change laterally has worsened. Continuous Cardiac Monitoring: An order was placed for continuous cardiac monitoring. The monitor shows a rate of 65 with sinus rhythm with PACs. MEDICAL DECISION MAKING: There is no leukocytosis. The patient does have a mild anemia with a hemoglobin of 11.3. There is a normal platelet count. INR is elevated at 2.9, consistent with his Coumadin use. There was a mild elevation to the creatinine at 1.45 consistent with some possible dehydration. No worrisome liver enzyme elevation. The patient appeared to be in a euthyroid state. ECG showed a sinus rhythm, no acute ischemia. Cardiac enzyme testing x2 is not consistent with acute cardiac injury. Urinalysis did not show infection. Pelvis film did not show any evid ence for fracture. Chest x-ray did not show any pneumonia or CHF. Brain CT showed no acute bleed or mass-effect. Lumbar spine CT showed no acute fracture. The patient received IV saline, he was given 1.5 L in total. He received IV Tylenol for pain. The patient is having a very difficult time getting around. He was able to stand with his walker but required additional support by our nurses. He does not feel safe being discharged home. I did have the patient seen by case management. He is not able to be transferred to rehab this evening, hospitalization would be in order. I spoke to the patient, I talked to case management. The on-call hospitalist was consulted. The patient will be brought into our facility and hopefully, qualify for inpatient rehab in the very near future. At this point, the cause for his syncope/collapse is unclear although, dehydration seems a likely nicole date. I did talk to him about the possibility of a seizure earlier, he denies that this could even be a possibility. Past Med/Surg History Medical History CAD (coronary artery disease) Dehydration Diabetes HLD (hyperlipidemia) Interstitial lung disease Interstitial lung disease due to connective tissue disease Lung nodule Polymyositis Polymyositis Prostate cancer s/p XRT Rheumatoid arthritis Seizure-like activity Thoracic ascending aortic aneurysm s/p repair Surgical History H/O hernia repair History of aortic valve replacement mechanical History of cholecystectomy History of fusion of cervical spine History of gastric bypass lap band History of heart artery stent History of lung biopsy 2019 History of partial nephrectomy Family History Other Coronary heart disease Rheumatoid arthritis Stroke Social History Smoking Status: Never smoker Second Hand Exposure: No; Hx Alcohol Use: No Hx Substance Use: No Preferred Language: Slovenian Communication Ability: Effective Hearing Ability: Hard of Hearing Cone Operator Required: No marital status: / Current Living Situation: Family Current Living Situation Comment: son Feels Safe at Home: Yes Assistive Devices: Glasses, Hearing Aid - Bilateral and Walker Allergies Allergies Allergy/AdvReac Type Severity Reaction Status Date / Time Iodinated Contrast Media Allergy Severe Anaphylaxis Verified 05/28/20 18:57 shellfish derived Allergy Severe Anaphylaxis Verified 05/28/20 18:57 Tetanus Vaccines and Toxoid Allergy Unknown Unknown Verified 05/28/20 18:57 Home Meds Home Medications Medication Instructions Recorded Confirmed Trulicity 1.5 mg SUBCUT SA 01/20/20 05/28/20 albuterol sulfate [Ventolin HFA] 2 puff INHALATION Q4H PRN 01/20/20 05/28/20 allopurinol 200 mg PO HS 01/20/20 05/28/20 azithromycin 250 mg PO .MOWEFR@QA 01/20/20 05/28/20 cholecalciferol (vitamin D3) 2,000 unit PO HS 01/20/20 05/28/20 [Vitamin D3] finasteride 5 mg PO QAM 01/20/20 05/28/20 insulin aspart U-100 See Rx Instructions .ROUTE .COMPLEX 01/20/20 05/28/20 ipratropium-albuterol 3 ml INHALATION QID PRN 01/20/20 05/28/20 nitroglycerin 0.4 mg SUBLINGUAL DIRECTED PRN 01/20/20 05/28/20 torsemide 20 mg PO QAM 01/20/20 05/28/20 trazodone 50 mg PO HS PRN 01/20/20 05/28/20 gegilup-[id number]-[id number] 1 tab PO HS 02/05/20 05/28/20 warfarin 7.5 mg PO HS 03/02/20 05/28/20 gabapentin 600 mg tablet 600 mg PO BID tab 04/02/20 05/28/20 atorvastatin 40 mg PO HS 05/28/20 05/28/20 insulin glargine [Lantus Solostar 50 unit SUBCUT BID 05/28/20 05/28/20 U-100 Insulin] prednisone 6 mg PO QAM 05/28/20 05/28/20 Previous Rx's Medication Instructions Recorded Linzess 145 mcg PO QAM #30 cap 03/12/20 levetiracetam 1,000 mg tablet 1,000 mg PO BID 90 Days #180 tab 04/02/20 topiramate 100 mg tablet 100 mg PO BID 30 Days #60 tab 05/17/20 Results & Data (ED) Vital Signs Vital Signs - 24 hr 05/28/20 14:47 05/28/20 15:00 05/28/20 15:26 Temperature 36.6 C Temperature Source Oral Pulse Rate 88 72 70 Pulse Rate [Bilateral Apical] Pulse Rate from SpO2 Sensor Respiratory Rate 18 14 24 Respiratory Effort / Characteristics Non-Labored Spontaneous Respiratory Depth Normal Blood Pressure 133/69 111/70 Blood Pressure [Left Arm] Blood Pressure Mean 90 83 Blood Pressure Mean [Left Arm] Pulse Oximetry 98 Oxygen Delivery Method Room Air Room Air Room Air Sepsis Recent Fever Within 48 Hours No Sepsis New/Unexplained Change in Mental Status N/A Sepsis Action Taken by Nursing No Action Required 05/28/20 15:30 05/28/20 15:40 05/28/20 15:50 Temperature Temperature Source Pulse Rate 73 71 79 Pulse Rate [Bilateral Apical] Pulse Rate from SpO2 Sensor Respiratory Rate 16 16 21 Respiratory Effort / Characteristics Respiratory Depth Blood Pressure Blood Pressure [Left Arm] Blood Pressure Mean Blood Pressure Mean [Left Arm] Pulse Oximetry Oxygen Delivery Method Room Air Room Air Room Air Sepsis Recent Fever Within 48 Hours Sepsis New/Unexplained Change in Mental Status Sepsis Action Taken by Nursing 05/28/20 15:55 05/28/20 16:00 05/28/20 16:10 Temperature Temperature Source Pulse Rate 67 70 Pulse Rate [Bilateral Apical] Pulse Rate from SpO2 Sensor Respiratory Rate 16 18 Respiratory Effort / Characteristics Respiratory Depth Blood Pressure Blood Pressure [Left Arm] Blood Pressure Mean Blood Pressure Mean [Left Arm] Pulse Oximetry Oxygen Delivery Method Room Air Room Air Room Air Sepsis Recent Fever Within 48 Hours Sepsis New/Unexplained Change in Mental Status Sepsis Action Taken by Nursing 05/28/20 16:41 05/28/20 16:50 05/28/20 17:00 Temperature Temperature Source Pulse Rate 63 61 48 L Pulse Rate [Bilateral Apical] Pulse Rate from SpO2 Sensor 68 62 62 Respiratory Rate 17 18 15 Respiratory Effort / Characteristics Respiratory Depth Blood Pressure 119/78 121/67 Blood Pressure [Left Arm] Blood Pressure Mean 91 85 Blood Pressure Mean [Left Arm] Pulse Oximetry 98 97 97 Oxygen Delivery Method Room Air Room Air Room Air Sepsis Recent Fever Within 48 Hours Sepsis New/Unexplained Change in Mental Status Sepsis Action Taken by Nursing 05/28/20 17:10 05/28/20 17:20 05/28/20 17:30 Temperature Temperature Source Pulse Rate 52 L 78 62 Pulse Rate [Bilateral Apical] Pulse Rate from SpO2 Sensor 57 L 79 63 Respiratory Rate 16 21 18 Respiratory Effort / Characteristics Respiratory Depth Blood Pressure Blood Pressure [Left Arm] Blood Pressure Mean Blood Pressure Mean [Left Arm] Pulse Oximetry 97 99 99 Oxygen Delivery Method Room Air Room Air Room Air Sepsis Recent Fever Within 48 Hours Sepsis New/Unexplained Change in Mental Status Sepsis Action Taken by Nursing 05/28/20 17:31 05/28/20 17:40 05/28/20 19:07 Temperature Temperature Source Pulse Rate 65 64 Pulse Rate [Bilateral Apical] 64 Pulse Rate from SpO2 Sensor 76 59 L Respiratory Rate 20 16 20 Respiratory Effort / Characteristics Respiratory Depth Blood Pressure 140/75 Blood Pressure [Left Arm] 132/81 Blood Pressure Mean 96 Blood Pressure Mean [Left Arm] 98 Pulse Oximetry 94 94 100 Oxygen Delivery Method Room Air Room Air Sepsis Recent Fever Within 48 Hours Sepsis New/Unexplained Change in Mental Status Sepsis Action Taken by Nursing 05/28/20 20:39 Temperature Temperature Source Pulse Rate Pulse Rate [Bilateral Apical] 65 Pulse Rate from SpO2 Sensor Respiratory Rate 20 Respiratory Effort / Characteristics Respiratory Depth Blood Pressure Blood Pressure [Left Arm] 114/56 L Blood Pressure Mean Blood Pressure Mean [Left Arm] 75 Pulse Oximetry 98 Oxygen Delivery Method Sepsis Recent Fever Within 48 Hours Sepsis New/Unexplained Change in Mental Status Sepsis Action Taken by Residential Medications Current Medication List: was personally reviewed by me Laboratory Data Attestation: I reviewed the patient's lab results. Result diagrams: 05/28/20 15:33 05/28/20 15:33 Lab Results 05/28/20 05/28/20 05/28/20 Range/Units 15:33 15:33 15:33 WBC 5.68 (4.8-10.8) K/uL RBC 3.99 L (4.7-6.1) M/uL Hgb 11.3 L (14.0-18.0) g/dL Hct 34.9 L (42-52) % MCV 87.5 (80-100) fL MCH 28.3 (25-34) pg MCHC 32.4 (32-36) g/dL RDW Std Deviation 47.3 H (36.4-46.3) fL RDW Coeff of Lianne 14.8 H (11.5-14.5) % Plt Count 206 (130-400) K/uL MPV 9.9 (7.4-10.4) fL Immature Gran % (Auto) 0.7 % Neut % (Auto) 77.0 % Lymph % (Auto) 15.1 % [place] % (Auto) 4.9 % Eos % (Auto) 2.1 % Baso % (Auto) 0.2 % Neut # (Auto) 4.37 (1.4-6.5) K/uL Lymph # (Auto) 0.86 L (1.2-3.4) K/uL [place] # (Auto) 0.28 (0.11-0.59) K/uL Eos # (Auto) 0.12 (0-0.5) K/uL Baso # (Auto) 0.01 (0-0.2) K/uL Immature Gran # (Auto) 0.04 H (0.00-0.02) K/uL PT Cancelled INR Cancelled APTT Cancelled PTT Ratio Cancelled Sodium 142 (136-145) mmol/L Potassium 3.8 (3.5-5.1) mmol/L Chloride 109 H (98-107) mmol/L Carbon Dioxide 25 (21-32) mmol/L Anion Gap 8.0 (3-11) BUN 30 H (7-18) mg/dl Creatinine 1.45 H (0.6-1.4) mg/dl Est Cr Clr Drug Dosing 57.2 ml/min Est GFR ( Amer) 54.2 Est GFR (Non-Af Amer) 46.8 BUN/Creatinine Ratio 20.4 H (10-20) Glucose 167 H (70-99) mg/dl Calcium 9.6 (8.5-10.1) mg/dl Magnesium 2.1 (1.8-2.4) mg/dl Total Bilirubin 0.4 (0.2-1) mg/dl AST 38 H (15-37) U/L ALT 48 (12-78) U/L Alkaline Phosphatase 88 (45-117) U/L Troponin I < 0.015 (0-0.045) ng/ml Total Protein 6.5 (6.4-8.2) gm/dl Albumin 3.3 L (3.4-5.0) gm/dl Globulin 3.2 (2.5-4.0) gm/dl Albumin/Globulin Ratio 1.0 (0.9-2) TSH 0.751 (0.300-4.500) uIu/ml Urine Color Urine Appearance (Clear) Urine pH (4.5-7.5) Ur Specific [place] (1.000-1.030) Urine Protein (Negative) Urine Glucose (UA) (Negative) Urine Ketones (Negative) Urine Blood (Negative) Urine Nitrite (Negative) Urine Bilirubin (Negative) Urine Urobilinogen (Negative) Ur Leukocyte Esterase (Negative) 05/28/20 05/28/20 05/28/20 Range/Units 17:02 18:30 18:40 WBC (4.8-10.8) K/uL RBC (4.7-6.1) M/uL Hgb (14.0-18.0) g/dL Hct (42-52) % MCV (80-100) fL MCH (25-34) pg MCHC (32-36) g/dL RDW Std Deviation (36.4-46.3) fL RDW Coeff of Lianne (11.5-14.5) % Plt Count (130-400) K/uL MPV (7.4-10.4) fL Immature Gran % (Auto) % Neut % (Auto) % Lymph % (Auto) % [place] % (Auto) % Eos % (Auto) % Baso % (Auto) % Neut # (Auto) (1.4-6.5) K/uL Lymph # (Auto) (1.2-3.4) K/uL [place] # (Auto) (0.11-0.59) K/uL Eos # (Auto) (0-0.5) K/uL Baso # (Auto) (0-0.2) K/uL Immature Gran # (Auto) (0.00-0.02) K/uL PT 29.3 H INR 2.9 H APTT 38.4 H PTT Ratio 1.4 Sodium (136-145) mmol/L Potassium (3.5-5.1) mmol/L Chloride (98-107) mmol/L Carbon Dioxide (21-32) mmol/L Anion Gap (3-11) BUN (7-18) mg/dl Creatinine (0.6-1.4) mg/dl Est Cr Clr Drug Dosing ml/min Est GFR ( Amer) Est GFR (Non-Af Amer) BUN/Creatinine Ratio (10-20) Glucose (70-99) mg/dl Calcium (8.5-10.1) mg/dl Magnesium (1.8-2.4) mg/dl Total Bilirubin (0.2-1) mg/dl AST (15-37) U/L ALT (12-78) U/L Alkaline Phosphatase (45-117) U/L Troponin I < 0.015 (0-0.045) ng/ml Total Protein (6.4-8.2) gm/dl Albumin (3.4-5.0) gm/dl Globulin (2.5-4.0) gm/dl Albumin/Globulin Ratio (0.9-2) TSH (0.300-4.500) uIu/ml Urine Color Yellow Urine Appearance Clear (Clear) Urine pH 7.5 (4.5-7.5) Ur Specific [place] 1.012 (1.000-1.030) Urine Protein Negative (Negative) Urine Glucose (UA) Negative (Negative) Urine Ketones Negative (Negative) Urine Blood Negative (Negative) Urine Nitrite Negative (Negative) Urine Bilirubin Negative (Negative) Urine Urobilinogen Negative (Negative) Ur Leukocyte Esterase Negative (Negative) Administered Medications Discontinued Medications Acetaminophen (Acetaminophen 1000 Mg/100 Ml Iv) 1,000 mg IV NOW STA Stop: 05/28/20 15:38 Last Admin: 05/28/20 16:14 Dose: 1,000 mg Documented by: [id number] Sodium Chloride (Nss) 500 mls @ 999 mls/hr IV .Q31M KIRSTEN Stop: 05/28/20 16:15 Last Infusion: 05/28/20 16:45 Dose: 0 mls/hr Documented by: [id number] Admin: 05/28/20 16:14 Dose: 999 mls/hr Documented by: [id number] Sodium Chloride (Nss 1000ml) 500 mls @ 999 mls/hr IV .Q31M ONE Stop: 05/28/20 17:27 Last Infusion: 05/28/20 19:39 Dose: 0 mls/hr Documented by: [id number] Admin: 05/28/20 18:34 Dose: 999 mls/hr Documented by: [id number] Sodium Chloride (Nss 1000ml) 500 mls @ 999 mls/hr IV .Q31M ONE Stop: 05/28/20 19:57 Last Infusion: 05/28/20 20:15 Dose: 0 mls/hr Documented by: [id number] Admin: 05/28/20 19:40 Dose: 999 mls/hr Documented by: [id number] Imaging Data Radiologist's Impression: XR chest 1V portable CLINICAL HISTORY: weakness COMPARISON STUDY: 03/22/2020 FINDINGS: There are postsurgical changes of a midline sternotomy and aortic valve replacement. The heart is enlarged. There is no failure. There is no focal pulmonary consolidation. There are no pleural effusions. There is stable left basilar atelectasis/scarring.[ IMPRESSION: No active disease in the chest. XR pelvis 1-2V routine CLINICAL HISTORY: Fall. Pelvic pain. COMPARISON STUDY: Pelvis and right hip 01/30/2020. FINDINGS: No fracture or dislocation within the pelvis or hips. The sacrum appears intact. Gastric lap band port is again noted. Minimal osteoarthritis within the bilateral hips, unchanged. IMPRESSION: No fracture or dislocation within the pelvis or hips. CT head/brain wo con CLINICAL HISTORY: Head trauma. Patient on Coumadin. COMPARISON STUDY: December 06, 2019 TECHNIQUE: Axial CT of the brain is performed from the vertex to the skull base. IV contrast was not administered for this examination. A dose lowering technique was utilized adhering to the principles of ALARA. CT DOSE: FINDINGS: No intra or extra-axial mass lesions are visualized. There is no CT evidence of acute cortical infarction. There is no evidence of midline shift. There is no acute hemorrhage. No calvarial fractures are visualized. There are patchy white matter hypodensities likely on a small vessel basis. There is no evidence of pathologic ventricular dilatation. There is no evidence of acute sinusitis IMPRESSION: No acute intracranial findings CT lumbar spine wo con CT DOSE: 1580.74 mGy.cm CLINICAL HISTORY: Back pain status post trauma. Patient on Coumadin. TECHNIQUE: Helical images were acquired in transverse plane. Reformatted sagittal and coronal images were reviewed. A dose lowering technique was utilized adhering to the principles of ALARA. CONTRAST: No contrast was administered COMPARISON STUDY: MRI dated 01/20/2020 FINDINGS: L1-2 level: There is no evidence of significant disc bulge or focal herniation. There is no evidence of spinal or foraminal stenosis. L2-3 level: There is a mild circumferential disc bulge. There postlaminectomy changes. There is no significant spinal or foraminal stenosis L3-4 level: There is a disc osteophyte complex. There are postlaminectomy changes. There is no significant spinal or foraminal stenosis L4-5 level: There is a circumferential disc bulge. There are postlaminectomy changes. There is no significant spinal or foraminal stenosis L5-S1 level: There is no evidence of significant disc bulge or focal herniation. There is no evidence of spinal or foraminal stenosis. No acute fractures or traumatic subluxations are visualized. There is no evidence for SI joint diastases. There is a punctate nonobstructive left renal calculus versus vascular calcification. IMPRESSION: 1. Postsurgical and degenerative change 2. No acute fractures or traumatic subluxations identified Head Trauma GCS Score: 15 Discharge Plan Visit Data Chief Complaint: Fall ED Provider: Tan Lowe Discharge Problem: Syncope, Weakness, Lower back pain, Acute head trauma Patient Disposition: Admitted As Inpatient Condition: Fair Forms Stand Alone Forms: [facility] Prescriptions Prescriptions: No Action topiramate 100 mg tablet 100 mg PO BID 30 Days Qty: 60 RF: 5 gabapentin 600 mg tablet 600 mg PO BID RF: 0 levetiracetam 1,000 mg tablet 1,000 mg PO BID 90 Days Qty: 180 RF: 1 warfarin 7.5 mg tablet 7.5 mg PO HS RF: 0 Linzess 145 mcg capsule 145 mcg PO QAM Qty: 30 RF: 0 ipratropium-albuterol 0.5 mg-3 mg(2.5 mg base)/3 mL Solution For Nebulization 3 ml INHALATION QID PRN (Reason: Shortness Of Breath Or Wheezing) RF: 0 torsemide 20 mg Tablet 20 mg PO QAM RF: 0 trazodone 50 mg Tablet 50 mg PO HS PRN (Reason: Sleep) RF: 0 azithromycin 250 mg Tablet 250 mg PO .MOWEFR@QAM RF: 0 allopurinol 100 mg Tablet 200 mg PO HS RF: 0 nitroglycerin 0.4 mg Tablet, Sublingual 0.4 mg sublingual DIRECTED PRN (Reason: Chest Pain) RF: 0 albuterol sulfate [Ventolin HFA] 90 mcg/actuation Hfa Aerosol Inhaler 2 puff INHALATION Q4H PRN (Reason: Wheezing) RF: 0 finasteride 5 mg Tablet 5 mg PO QAM RF: 0 insulin aspart U-100 100 unit/mL (3 mL) Insulin Pen See Rx Instructions .ROUTE .COMPLEX RF: 0 Trulicity 1.5 mg/0.5 mL Pen Injector 1.5 mg SUBCUT SA RF: 0 cholecalciferol (vitamin D3) [Vitamin D3] 50 mcg (2,000 unit) Capsule 2,000 unit PO HS RF: 0 ktfilvu-bodzixugz-bxqb 333-133-5 mg Tablet 1 tab PO HS RF: 0 atorvastatin 40 mg tablet 40 mg PO HS RF: 0 prednisone 1 mg tablet 6 mg PO QAM RF: 0 Lantus Solostar U-100 Insulin 100 unit/mL (3 mL) insulin pen 50 unit SUBCUT BID RF: 0 Referrals Referrals: Josh Gaspar MD [Primary Care Provider] - Discharge Problem: Syncope Qualifiers: Syncope type: unspecified Qualified Code(s): R55 - Syncope and collapse Lower back pain Qualifiers: Chronicity: acute Back pain laterality: midline Sciatica presence: without sciatica Qualified Code(s): M54.5 - Low back pain Acute head trauma Qualifiers: Encounter type: initial encounter Qualified Code(s): S09.90XA - Unspecified injury of head, initial encounter
[2020-05-28] MEDS ORDERED: SODIUM CHLORIDE 0.9% 500 ML IV SCH (15:45)
--- NOTE | 2020-05-28 15:56 | XRay Report ---
XR chest 1V portable CLINICAL HISTORY: weakness COMPARISON STUDY: 03/22/2020 FINDINGS: There are postsurgical changes of a midline sternotomy and aortic valve replacement. The he art is enlarged. There is no failure. There is no focal pulmonary consolidation. There are no pleural effusions. There is stable left basilar atelectasis/scarring.[ IMPRESSION: No active disease in the chest. ACT 112: Negative or not required by law. Electronically signed by: Rodriguez Veloz M.D. 05/28/2020 3:55 PM
--- NOTE | 2020-05-28 16:01 | XRay Report ---
XR pelvis 1-2V routine CLINICAL HISTORY: Fall. Pelvic pain. COMPARISON STUDY: Pelvis and right hip 01/30/2020. FINDINGS: No fracture or dislocation within the pelvis or hips. The sacrum appears intact. Gastric la p band port is again noted. Minimal osteoarthritis within the bilateral hips, unchanged. IMPRESSION: No fracture or dislocation within the pelvis or hips. ACT 112: Negative or not required by law. Electronically signed by: Jc Che M.D. 05/28/2020 3:59 PM
[2020-05-28 16:04] LABS: Basophils # (auto) 0.01 K/uL (0-0.2); Basophils % (auto) 0.2 %; Eosinophils # (auto) 0.12 K/uL (0-0.5); Eosinophils % (auto) 2.1 %; Hematocrit (blood only) 34.9 % (42-52); Hemoglobin 11.3 g/dL (14.0-18.0); Immature Granulocytes # (auto) 0.04 K/uL (0.00-0.02); Immature Granulocytes % (auto) 0.7 %; Lymphocytes # (auto) 0.86 K/uL (1.2-3.4); Lymphocytes % (auto) 15.1 %; Mean Corpuscular Hemoglobin 28.3 pg (25-34); Mean Corpuscular Hgb Conc 32.4 g/dL (32-36); Mean Corpuscular Volume 87.5 fL (80-100); Mean Platelet Volume 9.9 fL (7.4-10.4); Monocytes # (auto) 0.28 K/uL (0.11-0.59); Monocytes % (auto) 4.9 %; Neutrophils # (auto) 4.37 K/uL (1.4-6.5); Platelet Count 206 K/uL (130-400); RDW Coefficient of Variation 14.8 % (11.5-14.5); RDW Standard Deviation 47.3 fL (36.4-46.3); Red Blood Count 3.99 M/uL (4.7-6.1); White Blood Count 5.68 K/uL (4.8-10.8)
[2020-05-28 16:14] LABS: Alanine Aminotransferase 48 U/L (12-78); Albumin Level 3.3 gm/dl (3.4-5.0); Aspartate Aminotransferase 38 U/L (15-37); BUN Creatinine Ratio 20.4 (10-20); Blood Urea Nitrogen 30 mg/dl (7-18); Calcium 9.6 mg/dl (8.5-10.1); Carbon Dioxide 25 mmol/L (21-32); Chloride 109 mmol/L (98-107); Creatinine Clr Calc Pharmacy 57.2 ml/min; Est GFR (African American) 54.2; Est GFR (Non-African American) 46.8; Glucose 167 mg/dl (70-99); Magnesium 2.1 mg/dl (1.8-2.4); Potassium 3.8 mmol/L (3.5-5.1); Sodium 142 mmol/L (136-145)
[2020-05-28 16:25] LABS: Alkaline Phosphatase 88 U/L (45-117); Bilirubin,Total 0.4 mg/dl (0.2-1); Globulin 3.2 gm/dl (2.5-4.0); Thyroid Stimulating Hormone 0.751 uIu/ml (0.300-4.500); Total Protein 6.5 gm/dl (6.4-8.2); Troponin I < 0.015 ng/ml (0-0.045)
--- NOTE | 2020-05-28 16:34 | Electrocardiogram Report ---
Test Reason : Blood Pressure : / mmHG Vent. Rate : 065 BPM Atrial Rate : 065 BPM P-R Int : 140 ms QRS Dur : 082 ms QT Int : 440 ms P-R-T Axes : 031 052 124 degrees QTc Int : 457 ms Sinus rhythm with Premature atrial complexes Abnormal ECG When compared with ECG of 22-MAR-2020 19:13, Inverted T waves have replaced nonspecific T wave abnormality in Lateral leads Confirmed by Cody Soto ([id number]) on 05/28/2020 4:33:49 PM Referred By: Confirmed By:Wyatt Soto
--- NOTE | 2020-05-28 16:38 | CT Scan Report ---
CT head/brain wo con CLINICAL HISTORY: Head trauma. Patient on Coumadin. COMPARISON STUDY: December 06, 2019 TECHNIQUE: Axial CT of the brain is performed from the vertex to the skull base. IV contrast was not administered for this examination. A dose lowering technique was utilized adhering to the principles of ALARA. CT DOSE: FINDINGS: No intra or extra-axial mass lesions are visualized. There is no CT evidence of acute cortical infarc tion. There is no evidence of midline shift. There is no acute hemorrhage. No calvarial fractures ar e visualized. There are patchy white matter hypodensities likely on a small vessel basis. There is no evidence of pathologic ventricular dilatation. There is no evidence of acute sinusitis IMPRESSION: No acute intracranial findings ACT 112: Negative or not required by law. Electronically signed by: Rodriguez Veloz M.D. 05/28/2020 4:36 PM
--- NOTE | 2020-05-28 16:42 | CT Scan Report ---
CT lumbar spine wo con CT DOSE: 1580.74 mGy.cm CLINICAL HISTORY: Back pain status post trauma. Patient on Coumadin. TECHNIQUE: Helical images were acquired in transverse plane. Reformatted sagittal and coronal images were reviewed. A dose lowering technique was utilized adhering to the principles of ALARA. CONTRAST: No contrast was administered COMPARISON STUDY: MRI dated 01/20/2020 FINDINGS: L1-2 level: There is no evidence of significant disc bulge or focal herniation. There is no evidence of spinal or foraminal stenosis. L2-3 level: There is a mild circumferential disc bulge. There postlaminectomy changes. There is no si gnificant spinal or foraminal stenosis L3-4 level: There is a disc osteophyte complex. There are postlaminectomy changes. There is no signif icant spinal or foraminal stenosis L4-5 level: There is a circumferential disc bulge. There are postlaminectomy changes. There is no sig nificant spinal or foraminal stenosis L5-S1 level: There is no evidence of significant disc bulge or focal herniation. There is no evidence of spinal or foraminal stenosis. No acute fractures or traumatic subluxations are visualized. There is no evidence for SI joint diastases. There is a punctate nonobstructive left renal calculus versus vascular calcification. IMPRESSION: 1. Postsurgical and degenerative change 2. No acute fractures or traumatic subluxations identified ACT 112: Negative or not required by law. Electronically signed by: Rodriguez Veloz M.D. 05/28/2020 4:41 PM
[2020-05-28] MEDS ORDERED: SODIUM CHLORIDE 0.9% 1000ML 500 ML IV ONE ×2 (16:57→19:27)
[2020-05-28 17:24] LABS: INR 2.9 (0.9-1.1); Partial Thromboplastin Ratio 1.4; Partial Thromboplastin Time 38.4 Seconds (21.0-31.0); Prothrombin Time 29.3 Seconds (9.0-12.0)
[2020-05-28 18:42] LABS: Appearance Urine Clear (Clear); Bilirubin Urine Negative (Negative); Blood Urine Negative (Negative); Color Urine Yellow; Glucose Urine UA Negative (Negative); Ketones Urine Negative (Negative); Leukocyte Esterase Urine Negative (Negative); Nitrite Urine Negative (Negative); Protein Urine Negative (Negative); Specific Gravity Urine 1.012 (1.000-1.030); Urobilinogen Urine Negative (Negative); pH Urine 7.5 (4.5-7.5)
[2020-05-28 19:13] LABS: Troponin I < 0.015 ng/ml (0-0.045)
--- NOTE | 2020-05-28 20:34 | History & Physical Report ---
Date of Service May 28, 2020 Assessment & Plan (1) Syncope: 75 y/o M w/ hx of CAD (w/ stent), recurrent seizure-like activity, and episode of stroke-like symptoms (12/31/2019) who presents w/ mechanical fall and loss of consciousness likely 2/2 concussion from hitting his occiput. Stable. - per patient story (A&Ox4, no signs of memory impairment), purely mechanical fall from falling over from bent over/squatting position. LOC of unknown duration perhaps 30 seconds from hitting back of occiput - transient confusion and blurry vision that resolved after EMS transport. patient's description of symptoms more consistent w/ mild concussion than postictal state - head CT neg - monitor for arrhythmia via tele - differential mechanical fall w/ syncope. vs seizure. lower suspicion of vasovagal or cardiogenic syncope per patient hx, deemed reliable historian - consult neuro. patient has complicated neuro hx. recurrent seizure-like episodes, none (per patient) since 02/2020 after increased Keppra to 1000 BID, migraines, and ? syncope/TIA 12/2019. - ordered q4 neurovascular checks. consider d/c the neuro checks after 12 hours of obs. patient not having confusion at time of inpatient admission FEN/GI:DM2 and low sodium diet. no mIVF dvt ppx: home warfarin temporarily held because INR 2.9 05/28/20 code: DNR/DNI dispo: med/surg w/ tele. PT/OT, consult case management. perhaps candidate for inpatient rehab Present on Admission?: Yes (2) Acute head trauma: - mild ttp at occiput on exam - no head wound or external bruising/erythema noted on physical exam - monitor clinically for concussion symptoms Present on Admission?: Yes (3) Lower back pain: - chronic - per CT of lumbar spine, no evidence of spinal stenosis. L2-L5 postlaminectomy changes. no records of this surgery in [facility] - lower suspicion of spinal claudication per imaging and lack of saddle anesthesia symptoms - tylenol 650mg PO q4h prn for pain Present on Admission?: Yes (4) Weakness: - ? chronic deconditioning leading to weakness and falls - no weakness on physical exam - patient endorses mild R sided wkness after his 12/2019 episode of stroke-like symptoms, much improved, resolved after outpatient physical therapy. - consider polypharmacy. patient on multiple seizure and migraine medications Present on Admission?: Yes (5) Seizure-like activity: - hx of multiple episodes in 2019. per neurology notes (both [facility] and [facility]), had questioned if epileptic vs non epileptic. psychogenic had also been on differential - neg eegs in past - Follows Dr. Sheikh at [facility] and another neurologist at [facility]. - has upcoming neuro appointment in May 2020 w/ plans to do 48 hour eeg - lower suspicion for seizure episode this admission - on large regimen of neurological medications, Keppra 1000 BID, topiramate 100 BID, and gabapentin 600 BID Present on Admission?: Yes (6) Suprapubic pain: - new complaint - ua not suggestive for infection. no culture indicated - pelvic xr neg for fracture or dislocation - lumbar spine CT: no acute fracture - order bladder scan Present on Admission?: Yes (7) Diabetes: - home regimen per patient: 36u lantus BID. novolog SSI before meals and at bedtime - regimen during this admission: 20u lantus BID + SSI (correction factor 20, carb ratio 7). Weight based w/ chronic steroid use. 6 mg prednisone is low dose, consider decreasing insulin regimen slightly as needed. achs bsg - 10u (instead of 20u) Lantus PM of because had been NPO for 12 hours Present on Admission?: Yes (8) History of gastric bypass: - avoid NSAIDs Present on Admission?: Yes (9) Chronic use of steroids: - for RA, polymyositis, ILD - 6 month+ - no indication for stress dosing at this time. patient appears clinically well (10) Chronic kidney disease, stage 3a: - slight bump in Cr, baseline 1.2s-1.3s. 1.45 this admission, may be 2/2 dehydration - no mIVF because will not be npo - s/p 1.5L total in boluses of NSS in ED - hx R partial nephrectomy 1987 - daily BMP - bladder scan 196mL, no straight cath indicated at this time - add CK now, if elevated will add mIVF Present on Admission?: Yes (11) Fluid retention: 01/02/20 echo. ef 65-60 - retention in abd and 1+ bilat LE edema - likely 2/2 chronic steroid use Present on Admission?: Yes (12) CAD (coronary artery disease): - stent s/p occlusion of aortic aneurysm repair graft - 05/17/19 cardiac cath: patent L main stent. mild nonobstructive CAD. normally functioning mechanical AVR Present on Admission?: Yes (13) Interstitial lung disease due to connective tissue disease: - home O2 2L at night only, every night Present on Admission?: Yes (14) Rheumatoid arthritis: - chronic joint pains - continue home prednisone, chronic Present on Admission?: Yes (15) Polymyositis: - continue daily prednisone Present on Admission?: Yes (16) Migraine: - chronic, no current complaints - sees Dr. Andrea Underwood ([facility]), last saw last wk Present on Admission?: Yes (17) Constipation: - chronic, mild. takes Linzess - hold home Linzess Present on Admission?: Yes (18) Gout: - continue home allopurinol Present on Admission?: Yes (19) Encounter for screening for COVID-19: - 05/28/20 covid neg (20) DVT prophylaxis: - on warfarin 7.5 daily, therapeutic anticoag - INR 2.9 this admission - hold temporarily - daily PT/INR Admission and Anticipated Discharge Date Admission Date: 05/28/20 History of Present Illness Xavi Bradford is a 75 y/o M w/ hx of CAD (w/ stent and warfarin), DM (on insulin), interstitial lung disease, polymyositis, prostate cancer (s/p XRT), and recurrent falls, and deconditioning who presents w/ fall w/ possible syncopal episode. He fell around 2:30 pm. Mr. Bradford was squatting down to grab a box when his back felt weak and he fell back and hit occiput of head on rugged hardwood floor. There was no prodrome and he did not feel dizzy or mentally unwell prior to the fall. He does not fully remember what happened after he hit his head (unwitnessed, family was in other part of house) but believes he lost consciousness for up to 30 seconds from hitting his head. After he woke up, he had some blurry vision, an occipital headache (none prior to the fall), and mild confusion (e.g. not knowing date) that lasted until EMS transport. Per patient, the episode does not feel like his seizures which involve arm shaking and legs giving out. Denies tongue biting. He had multiple seizure-like episodes in Fall/Winter 2019 (neg EEG) and hasn't had seizure episode since 03/19 when his Keppra dose was increased. He does not have any current confusion. Did not miss doses of seizure medications and no recent changes. The patient has had chronic low back pain, but currently is slightly worse than normal. There is some suprapubic pain that is new. No incontinence or groin numbness/tingling. Denies radicular symptoms. ED course. NSS 500mL x1, 1L x2 tylenol 1000mg IV x1. glucose 167. Neg head CT. No fracture on CT lumbar spine and xr pelvis. PACs and nonspecific ST-T changes on ecg. Primary Care Provider: Josh Gaspar MD Allergies Allergy/AdvReac Type Severity Reaction Status Date / Time Iodinated Contrast Media Allergy Severe Anaphylaxis Verified 05/28/20 18:57 shellfish derived Allergy Severe Anaphylaxis Verified 05/28/20 18:57 Tetanus Vaccines and Toxoid Allergy Unknown Unknown Verified 05/28/20 18:57 Home Medications Medication Instructions Recorded Confirmed Type Trulicity 1.5 mg SUBCUT SA 01/20/20 05/28/20 History albuterol sulfate [Ventolin HFA] 2 puff INHALATION Q4H PRN 01/20/20 05/28/20 History allopurinol 200 mg PO HS 01/20/20 05/28/20 History azithromycin 250 mg PO .MOWEFR@[facility] 01/20/20 05/28/20 History cholecalciferol (vitamin D3) 2,000 unit PO HS 01/20/20 05/28/20 History [Vitamin D3] finasteride 5 mg PO QAM 01/20/20 05/28/20 History insulin aspart U-100 See Rx Instructions .ROUTE .COMPLEX 01/20/20 05/28/20 History ipratropium-albuterol 3 ml INHALATION QID PRN 01/20/20 05/28/20 History nitroglycerin 0.4 mg SUBLINGUAL DIRECTED PRN 01/20/20 05/28/20 History torsemide 20 mg PO QAM 01/20/20 05/28/20 History trazodone 50 mg PO HS PRN 01/20/20 05/28/20 History eleiwyx-avojzqxhz-jpmk 1 tab PO HS 02/05/20 05/28/20 History warfarin 7.5 mg PO HS 03/02/20 05/28/20 History Linzess 145 mcg PO QAM #30 cap 03/12/20 05/28/20 Rx gabapentin 600 mg tablet 600 mg PO BID tab 04/02/20 05/28/20 History levetiracetam 1,000 mg tablet 1,000 mg PO BID 90 Days #180 tab 04/02/20 05/28/20 Rx topiramate 100 mg tablet 100 mg PO BID 30 Days #60 tab 05/17/20 05/28/20 Rx atorvastatin 40 mg PO HS 05/28/20 05/28/20 History insulin glargine [Lantus Solostar 50 unit SUBCUT BID 05/28/20 05/28/20 History U-100 Insulin] prednisone 6 mg PO QAM 05/28/20 05/28/20 History Past Med/Surg History Medical History (Updated 05/29/20 @ 13:18 by Britton Enriquez DO) CAD (coronary artery disease) Dehydration Diabetes HLD (hyperlipidemia) Interstitial lung disease Interstitial lung disease due to connective tissue disease Lung nodule Polymyositis Polymyositis Prostate cancer s/p XRT Rheumatoid arthritis Seizure-like activity Stroke-like symptom 12/2019, w/ blurry vision and dysarthria. mild R sided wkness. attending outpatient physical therapy w/ good improvement in strength (5+/5 strength of all 4 extremities as of 05/28/20) Thoracic ascending aortic aneurysm s/p repair Surgical History H/O hernia repair History of aortic valve replacement mechanical History of cholecystectomy History of fusion of cervical spine History of gastric bypass lap band History of heart artery stent History of lung biopsy 2019 History of partial nephrectomy Family History Other Coronary heart disease Rheumatoid arthritis Stroke Social History Smoking Status: Never smoker Second Hand Exposure: No; Hx Alcohol Use: No Hx Substance Use: No Preferred Language: Yoruba Communication Ability: Effective Hearing Ability: Hard of Hearing Tow Mate Required: No Beliefs That Will Affect Care: None marital status: / Current Living Situation: Family Current Living Situation Comment: son Feels Safe at Home: Yes Safety Concerns: Feels Safe At This Time Assistive Devices: Walker Review of Systems Review of Systems: Constitutional: Denies fever, chills Eyes: Denies current blurry vision, vision changes ENT: Denies sore throat, sinus pain Cardiovascular: Denies chest pain, palpitations Respiratory: Denies shortness of breath Gastrointestinal: Denies nausea, vomiting, constipation, diarrhea Genitourinary: Denies urinary symptoms including dysuria Musculoskeletal: See HPI Neurological: Denies numbness, tingling, focal weakness. Physical Exam Physical Exam: General: A&Ox4. NAD. Cooperative. HEENT: Atraumatic, normocephalic. Mild TTP at occiput. No bruising or erythema. negative Mckinney's sign or raccoon eyes. EOMI. PERRL Moist mucous membranes. No tongue bite billings. Pulm: CTAB> decreased lung sounds mild and lower [place]. No respiratory distress. Cardiac: S2 mechanical clicky. 1+ BLE. Abdominal: moderate distention, dull to percussion. nontender Back: no midline spinal TTP. negative straight leg raise bilaterally Neuro: 5+/5 strength and intact sensation of all 4 extremities. CNII-XII intact. normal heel to duval. R peripheral field vision questionable deficit Integumentary: No rashes, lesions, or lacerations noted. Faint upper sternotomy scar. Results & Data Results & Data ([facility]) Vital Signs (Past 12 Hours) Vital Signs Temp Pulse Pulse Resp BP BP Pulse Ox 05/28/20 19:07 64 20 132/81 100 05/28/20 17:40 64 16 94 05/28/20 17:31 65 20 140/75 94 05/28/20 17:30 62 18 99 05/28/20 17:20 78 21 99 05/28/20 17:10 52 L 16 97 05/28/20 17:00 48 L 15 121/67 97 05/28/20 16:50 61 18 97 05/28/20 16:41 63 17 119/78 98 05/28/20 16:10 70 18 05/28/20 16:00 67 16 05/28/20 15:50 79 21 05/28/20 15:40 71 16 05/28/20 15:30 73 16 05/28/20 15:26 70 24 05/28/20 15:00 72 14 111/70 05/28/20 14:47 36.6 C 88 18 133/69 98 Laboratory Results no leukocytosis. Hb 11.3, stable. INR 2.9.Cr 1.45 up from baseline 1.2s-1.3s. Ca, mg ok. liver panel ok. tsh 0.751 wnl, but on lower side. ua neg. Diagnostic Findings cxr: no acute findings. cardiomegaly. no failure. - other imaging studies in assessment and plan ECG Additional Comments: 05/28/20 ecg (cardiology interpretation): Sinus rhythm 65bpm with Premature atrial complexes. When compared with ECG of 22-MAR-2020, Inverted T waves have replaced nonspecific T wave abnormality in Lateral leads. qtc 457. Code Status & VTE Plan Code Status DNR/DNI VTE Prophylaxis Plan VTE Prophylaxis will be ordered: Yes Supervising Physician Co-Signing Physician Notes Attending addendum: I have physically seen this patient, have supervised the medical residents activities, and agree with the H&P unless as otherwise noted. Assessment and Plan: Status post mechanical fall- Transient loss of consciousness due to falling backwards and hitting back of head. CT head negative. CT lumbar spine with stable postsurgical results admit to monitored bed for every 4 hour neuro vascular checks and monitor for arrhythmia. On chronic prednisone 6 mg daily. May require stress dose steroids Acute kidney injury- Creatinine 1.45 Admission, with baseline 1.23. Received IV fluids 1500 mils in the ED Repeat labs in a.m. Remainder of orders and notations as noted Resident Activity Tracking Resident Involvement: Resident Care Provided Care Provided: Adult Hospital Medicine (1) Acute head trauma Encounter type: initial encounter Qualified Code(s): S09.90XA - Unspecified injury of head, initial encounter (2) Lower back pain Back pain laterality: midline Chronicity: acute Sciatica presence: without sciatica Qualified Code(s): M54.5 - Low back pain (3) Diabetes Diabetes mellitus complication detail: with polyneuropathy Diabetes mellitus complication status: with neurologic complications Diabetes mellitus technician terminal and repeater insulin use: with technician terminal and repeater use Diabetes mellitus type: type 2 Qualified Code( s): E11.42 - Type 2 diabetes mellitus with diabetic polyneuropathy; Z79.4 - intermediate (current) use of insulin (4) Gout Chronicity: unspecified Gout etiology: unspecified cause Gout site: unspecified site Qualified Code(s): M10.9 - Gout, unspecified (5) CAD (coronary artery disease) Associated angina: without angina Coronary Disease-Associated Artery/Lesion type: [place] artery [place] vs. transplanted heart: [place] heart Qualified Code(s): I25.10 - Atherosclerotic heart disease of [place] coronary artery without angina pectoris (6) Syncope Syncope type: unspecified Qualified Code(s): R55 - Syncope and collapse
[2020-05-28] MEDS ORDERED: TOPIRAMATE 100 MG TAB PO STA (23:01)
[2020-05-28] MEDS ORDERED: levETIRAcetam 500 MG TAB PO STA (23:01)
[2020-05-28] MEDS ORDERED: GABAPENTIN 600 MG TAB PO STA (23:01)
[2020-05-28] MEDS ORDERED: INSULIN GLARGINE SOLOSTAR 100 UNITS/ML 3 ML PEN SC STA (23:03)
[2020-05-28 23:30] LABS: Creatine Kinase 141 U/L (39-308)
[2020-05-29] MEDS ORDERED: GLUCAGON FOR INJ 1 MG VIAL SQ PRN (00:19)
[2020-05-29] MEDS ORDERED: GLUCOSE 40% GEL 15 GM TUBE PO PRN (00:19)
[2020-05-29] MEDS ORDERED: DEXTROSE 50% 50 ML SYRINGE IV PRN (00:19)
[2020-05-29] MEDS ORDERED: NITROGLYCERIN SL 0.4 MG/TAB TAB SL PRN (00:19)
[2020-05-29] MEDS ORDERED: CARBOHYDRATES FOR HYPOGLYCEMIA PO PRN (00:19)
[2020-05-29] MEDS ORDERED: GLUCOSE 10 TABS/TUBE PO PRN (00:19)
[2020-05-29] MEDS: ACETAMINOPHEN 325 MG TAB PO PRN ×4 (00:54→20:37)
[2020-05-29 05:44] LABS: Basophils # (auto) 0.03 K/uL (0-0.2); Basophils % (auto) 0.8 %; Eosinophils # (auto) 0.23 K/uL (0-0.5); Hemoglobin 9.9 g/dL (14.0-18.0); Immature Granulocytes # (auto) 0.04 K/uL (0.00-0.02); Lymphocytes # (auto) 1.01 K/uL (1.2-3.4); Lymphocytes % (auto) 26.4 %; Mean Corpuscular Hgb Conc 31.9 g/dL (32-36); Mean Corpuscular Volume 87.8 fL (80-100); Mean Platelet Volume 9.8 fL (7.4-10.4); Monocytes # (auto) 0.19 K/uL (0.11-0.59); Neutrophils # (auto) 2.33 K/uL (1.4-6.5); Neutrophils % (auto) 60.8 %; Platelet Count 164 K/uL (130-400); RDW Coefficient of Variation 14.7 % (11.5-14.5); RDW Standard Deviation 47.5 fL (36.4-46.3); Red Blood Count 3.53 M/uL (4.7-6.1); White Blood Count 3.83 K/uL (4.8-10.8)
[2020-05-29 06:15] LABS: Estimated Average Glucose 163 mg/dl; Hemoglobin A1C 7.3 % (4.5-5.6)
[2020-05-29 06:19] LABS: Albumin Level 2.7 gm/dl (3.4-5.0); BUN Creatinine Ratio 20.2 (10-20); Calcium 8.7 mg/dl (8.5-10.1); Creatinine Clr Calc Pharmacy 63.9 ml/min; Est GFR (African American) 61.9; Est GFR (Non-African American) 53.4; Potassium 3.5 mmol/L (3.5-5.1)
[2020-05-29 06:41] LABS: Bilirubin,Total 0.3 mg/dl (0.2-1); Globulin 2.6 gm/dl (2.5-4.0); Total Protein 5.3 gm/dl (6.4-8.2)
--- NOTE | 2020-05-29 08:16 | Neurology Consultation ---
Date of Consultation May 29, 2020 Assessment & Plan (1) Syncope: Probable syncopal episode with associated mild concussion. Patient is neurologically intact this morning. He had an unremarkable CT of the head yesterday. I would not make any adjustments in his anticonvulsant regimen at this time. He may continue with topiramate, Keppra, and gabapentin at the current dosages. He has an appointment pending at [facility] next week for prolonged outpatient EEG monitoring. He has had recurrent seizure-like episodes in the past although he does not have an electrically confirmed diagnosis of epilepsy. He has been felt to possibly have nonepileptic seizures. This most recent admission seems to have been triggered by syncope rather than a seizure-like episode. I do not think additional testing such as EEG or brain MRI is necessary in the context of this current hospitalization. I do not have any further immediate recommendations for his neurological care although we plan to see him for a follow-up in neurology clinic, after he has completed his assessments at [facility]. History of Present Illness Reason for Consultation: Fall, concussion Requesting Physician: Hiram Bray MD Attending Physician: Britton Enriquez DO History of Present Illness The patient is a 75-year-old male who is known to me, he was last seen in neurology clinic on April 02, 2020. I began following this patient this past fall for further evaluation and management of recurrent falls, lapses in awareness, with associated shaking of the limbs of undetermined etiology. Extensive evaluations previously including EEG, MRI of the brain, and MR angio graphy of the head and neck have been unrevealing. A diagnosis of seizure disorder or psychogenic nonepileptic seizures has been considered. He has also been evaluated by an epilepsy specialist at [facility] who had recommended extended outpatient EEG to be potentially followed by video EEG monitoring. The episodes were felt to be more consistent with nonepileptic events, however. Patient's history is also notable for migraine. His headaches tend to be frontal and associated with nausea as well as light and sound sensitivity. He has been prescribed Keppra for seizure-like episodes and topiramate for migraine. Patient's past medical history is also notable for diabetic peripheral neuropathy, rheumatoid arthritis, polymyositis, and paroxysmal atrial fibrillation. I had recommended increasing his dosage of Keppra to 1000 mg twice daily at his last appointment with me on April 02. The patient presented to the emergency department last night after a fall. The event was unwitnessed, he apparently fell in his room and was amnestic for the events. He complained of a posterior headache and some worsening of his chronic low back pain during his initial assessment. He indicated that he thought he may have passed out while standing and did not think he had a seizure. He does not recall any prematurity symptoms such as lightheadedness prior to falling at home. He did have a CT of the head completed during his initial assessment in the emergency department. The study was negative for hemorrhage or acute process but did reveal patchy chronic small vessel ischemic disease. I reviewed the images as well as the radiologist interpretation of this test. A lumbar spine CT was negative for acute fractures or traumatic subluxations. The patient was admitted to the hospitalist service with a diagnosis of syncope and suspected concussion. Although the event was unwitnessed the admission history suggests the patient fell backwards and struck the back of his head on the floor. There is also a suggestion that there may have been a loss of consciousness for about 30 seconds. 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 This morning, the patient complains of a low-grade migrainous headache which is a chronic problem for him. He informs me that he has an appointment pending in May at [facility] for prolonged outpatient EEG monitoring with the potential to follow-up with inpatient video EEG monitoring. Allergies Allergy/AdvReac Type Severity Reaction Status Date / Time Iodinated Contrast Media Allergy Severe Anaphylaxis Verified 05/28/20 18:57 shellfish derived Allergy Severe Anaphylaxis Verified 05/28/20 18:57 Tetanus Vaccines and Toxoid Allergy Unknown Unknown Verified 05/28/20 18:57 Home Medications Medication Instructions Recorded Confirmed Type Trulicity 1.5 mg SUBCUT SA 01/20/20 05/28/20 History albuterol sulfate [Ventolin HFA] 2 puff INHALATION Q4H PRN 01/20/20 05/28/20 History allopurinol 200 mg PO HS 01/20/20 05/28/20 History azithromycin 250 mg PO [email or web address] 01/20/20 05/28/20 History cholecalciferol (vitamin D3) 2,000 unit PO HS 01/20/20 05/28/20 History [Vitamin D3] finasteride 5 mg PO QAM 01/20/20 05/28/20 History insulin aspart U-100 See Rx Instructions .ROUTE .COMPLEX 01/20/20 05/28/20 History ipratropium-albuterol 3 ml INHALATION QID PRN 01/20/20 05/28/20 History nitroglycerin 0.4 mg SUBLINGUAL DIRECTED PRN 01/20/20 05/28/20 History torsemide 20 mg PO QAM 01/20/20 05/28/20 History trazodone 50 mg PO HS PRN 01/20/20 05/28/20 History nkgwqns-efpxgmwuf-hufw 1 tab PO HS 02/05/20 05/28/20 History warfarin 7.5 mg PO HS 03/02/20 05/28/20 History Linzess 145 mcg PO QAM #30 cap 03/12/20 05/28/20 Rx gabapentin 600 mg tablet 600 mg PO BID tab 04/02/20 05/28/20 History levetiracetam 1,000 mg tablet 1,000 mg PO BID 90 Days #180 tab 04/02/20 05/28/20 Rx topiramate 100 mg tablet 100 mg PO BID 30 Days #60 tab 05/17/20 05/28/20 Rx atorvastatin 40 mg PO HS 05/28/20 05/28/20 History insulin glargine [Lantus Solostar 50 unit SUBCUT BID 05/28/20 05/28/20 History U-100 Insulin] prednisone 6 mg PO QAM 05/28/20 05/28/20 History Patient History Medical History (Updated 05/28/20 @ 22:02 by Hiram Bray MD) CAD (coronary artery disease) Dehydration Diabetes HLD (hyperlipidemia) Interstitial lung disease Interstitial lung disease due to connective tissue disease Lung nodule Polymyositis Polymyositis Prostate cancer s/p XRT Rheumatoid arthritis Seizure-like activity Stroke-like symptom 12/2019, w/ blurry vision and dysarthria. mild R sided wkness. attending outpatient physical therapy w/ good improvement in strength (5+/5 strength of all 4 extremities as of 05/28/20) Thoracic ascending aortic aneurysm s/p repair Surgical History H/O hernia repair History of aortic valve replacement mechanical History of cholecystectomy History of fusion of cervical spine History of gastric bypass lap band History of heart artery stent History of lung biopsy 2019 History of partial nephrectomy Family History Other Coronary heart disease Rheumatoid arthritis Stroke Social History Smoking Status: Never smoker Second Hand Exposure: No; Hx Alcohol Use: No Hx Substance Use: No Preferred Language: Sinhala Communication Ability: Effective Hearing Ability: Hard of Hearing [employer] Required: No Beliefs That Will Affect Care: None marital status: / Current Living Situation: Family Current Living Situation Comment: son Feels Safe at Home: Yes Safety Concerns: Feels Safe At This Time Assistive Devices: Walker Review of Systems Review of Systems: All systems reviewed & are unremarkable except as noted in HPI & below Neurologic: + headache(s) Exam (Neuro) Neurologic: Oriented to:: Person, Place and Time Memory: Short Term Intact and Remote Intact Attention: Span Intact and Concentration Intact Speech Fluency: negative Dysarthria Speech Aphasia: negative Aphasia Cranial Nerves: Normal II, III, IV, , V, VII, IX, X, XI and XII; Abnorm VIII Motor Strength: Normal Lower Extremities and Normal Upper Extremities Muscle Bulk/Involuntary Movements: No Involuntary Movements; negative Muscle Atrophy Sensation: Light Touch Intact and Proprioception Intact Coordination: Normal Deep Tendon Reflexes: Rt Triceps: 2+, Lt Triceps: 2+, Rt Biceps: 2+, Lt Biceps: 2+, Rt Brachioradialis: 2+, Lt Brachioradialis: 2+, Rt Patellar: 2+, Lt Patellar: 2+, Rt Ankle: 1+ and Lt Ankle: 1+ Details: Gait not evaluated in the context of patient's current medical status. Results & Data ([facility]) Vital Signs (Past 12 Hours) Vital Signs Temp Pulse Pulse Pulse Resp BP Pulse Ox 05/29/20 07:22 59 L 05/29/20 03:49 36.5 C 70 20 120/65 98 05/29/20 02:30 54 L 05/29/20 00:11 36.4 C L 61 18 150/70 H 98 01/29/21 23:44 76 20 137/71 99 05/28/20 22:06 65 20 132/55 L 94 05/28/20 20:39 65 20 114/56 L 98 Laboratory Results WBC 3.83, hemoglobin 9.9, hematocrit 31.0, platelet count 164, sodium 144, potassium 3.5, BUN 26, creatinine 1.30, glucose 172, hemoglobin A1c 7.3, AST 25, ALT 38, TSH 0.751 Diagnostic Findings Imaging findings including CT of the head described in the history of present illness. Electrocardiogram, sinus rhythm with premature atrial complexes, 65 bpm PG Care Time/CCT Total # of Minutes Spent Total Time Spent with Patient: Total time spent is greater than 50% in coordination of care (as documented) at patient's floor/unit and/or counseling patient: 70 min Coding Level of Care Code 47501 Initial Inpt Care Lvl 3 Diagnoses Syncope R55 Syncope type: unspecified (1) Syncope Syncope type: unspecified Qualified Code(s): R55 - Syncope and collapse
--- NOTE | 2020-05-29 08:19 | Hospitalist Progress Note ---
Date of Service May 29, 2020 Assessment & Plan (1) Syncope: 75 y/o M w/ hx of CAD (w/ stent), recurrent seizure-like activity, and episode of stroke-like symptoms (12/31/2019) who presents w/ mechanical fall and loss of consciousness likely 2/2 concussion from hitting his occiput. Stable. Overnight the patient had no repeat symptoms was evaluated by Neurology. Fever more a syncopal type episode with reported symptoms after squatting down and falling backwards hitting his posterior head. Likely loss of consciousness however this was not with this. No concerns for arrhythmia overnight. Will have the patient evaluated by PT OT considerations for additional treatment rehabilitation etc.. FEN/GI:DM2 and low sodium diet. no mIVF dvt ppx: home warfarin temporarily held because INR 2.9 05/28/20 code: DNR/DNI dispo: med/surg w/ tele. PT/OT, consult case management. perhaps candidate for inpatient rehab (2) Acute head trauma: - mild ttp at occiput on exam - no head wound or external bruising/erythema noted on physical exam - monitor clinically for concussion symptoms (3) Lower back pain: - chronic - per CT of lumbar spine, no evidence of spinal stenosis. L2-L5 postlaminectomy changes. no records of this surgery in [facility] - lower suspicion of spinal claudication per imaging and lack of saddle anesthesia symptoms - tylenol 650mg PO q4h prn for pain To help with pain control added Vicodin 5 mg p.o. q.8 p.r.n. Will continue to monitor as the patient increases his activity (4) Weakness: - ? chronic deconditioning leading to weakness and falls - no weakness on physical exam - patient endorses mild R sided wkness after his 12/2019 episode of stroke-like symptoms, much improved, resolved after outpatient physical therapy. - consider polypharmacy. patient on multiple seizure and migraine medications (5) Seizure-like activity: - hx of multiple episodes in 2019. per neurology notes (both [facility] and [place]), had questioned if epileptic vs non epileptic. psychogenic had also been on differential - neg eegs in past - Follows Dr. Sheikh at [facility] and another neurologist at [place]. - has upcoming neuro appointment in May 2020 w/ plans to do 48 hour eeg - on large regimen of neurological medications, Keppra 1000 BID, topiramate 100 BID, and gabapentin 600 BID Neurology recommends continuing on his current medications. (6) Suprapubic pain: - new complaint - ua not suggestive for infection. no culture indicated - pelvic xr neg for fracture or dislocation - lumbar spine CT: no acute fracture - order bladder scan (7) Diabetes: - home regimen per patient: 36u lantus BID. novolog SSI before meals and at bedtime - regimen during this admission: 20u lantus BID + SSI (correction factor 20, carb ratio 7). Weight based w/ chronic steroid use. 6 mg prednisone is low dose, consider decreasing insulin regimen slightly as needed. achs bsg - 10u (instead of 20u) Lantus PM of because had been NPO for 12 hours (8) History of gastric bypass: - avoid NSAIDs (9) Chronic use of steroids: - for RA, polymyositis, ILD - 6 month+ - no indication for stress dosing at this time. patient appears clinically well (10) Chronic kidney disease, stage 3a: - slight bump in Cr, baseline 1.2s-1.3s. 1.45 this admission, may be 2/2 dehydration - no mIVF because will not be npo - s/p 1.5L total in boluses of NSS in ED - hx R partial nephrectomy 1987 Creatinine improving will recheck BMP in a.m. on his current diet. (11) Fluid retention: 01/02/20 echo. ef 65-60 - retention in abd and 1+ bilat LE edema - likely 2/2 chronic steroid use (12) CAD (coronary artery disease): - stent s/p occlusion of aortic aneurysm repair graft - 05/17/19 cardiac cath: patent L main stent. mild nonobstructive CAD. normally functioning mechanical AVR (13) Interstitial lung disease due to connective tissue disease: - home O2 2L at night only, every night (14) Rheumatoid arthritis: - chronic joint pains - continue home prednisone, chronic (15) Polymyositis: - continue daily prednisone (16) Migraine: - chronic, no current complaints - sees Dr. Andrea Underwood ([facility]), last saw last wk (17) Constipation: - chronic, mild. takes Linzess - hold home Linzess (18) Gout: - continue home allopurinol (19) Encounter for screening for COVID-19: - 05/28/20 covid neg (20) DVT prophylaxis: - on warfarin 7.5 daily, therapeutic anticoag - INR 2.9 this admission Recheck INR, ordered urgent and the a.m.. Plan on restarting warfarin will recheck labs prior. (21) Normocytic anemia: Patient with reduction in hemoglobin, stable no vital sign changes. No reported bleeding, history of prednisone possible irritation/gastritis Start Protonix daily Recheck INR and CBC this afternoon and in the a.m. Admission and Anticipated Discharge Date Admission Date: May 28, 2020 Subjective Overnight patient slept well. He does have some remaining back discomfort after his fall. Reviewed with patient the CT scan and x-ray were negative. No fevers chills abdominal pain chest pain dyspnea. He denies any seizure-like symptoms Review of Systems Review of Systems: All systems reviewed & are unremarkable except as noted in Subjective Physical Exam Physical Exam: Constitutional: WD/WN, vitals as above Respiratory: Effort normal, CTA B/L CV: RRR, no murmur, no edema Abdomen: normal bowel sounds, soft, nontender, no hepatosplenomegaly Musculoskeletal no obvious spinal tenderness to palpation Results & Data Results & Data ([facility]) Vital Signs (Past 12 Hours) Vital Signs Temp Pulse Pulse Pulse Resp BP Pulse Ox 05/29/20 07:22 59 L 05/29/20 03:49 36.5 C 70 20 120/65 98 05/29/20 02:30 54 L 05/29/20 00:11 36.4 C L 61 18 150/70 H 98 05/28/20 23:44 76 20 137/71 99 05/28/20 22:06 65 20 132/55 L 94 05/28/20 20:39 65 20 114/56 L 98 Laboratory Results Laboratory Results - last 24 hr 05/28/20 05/28/20 05/28/20 15:33 15:33 15:33 WBC 5.68 RBC 3.99 L Hgb 11.3 L Hct 34.9 L MCV 87.5 MCH 28.3 MCHC 32.4 RDW Std Deviation 47.3 H RDW Coeff of Lianne 14.8 H Plt Count 206 MPV 9.9 Immature Gran % (Auto) 0.7 Neut % (Auto) 77.0 Lymph % (Auto) 15.1 [place] % (Auto) 4.9 Eos % (Auto) 2.1 Baso % (Auto) 0.2 Neut # (Auto) 4.37 Lymph # (Auto) 0.86 L [place] # (Auto) 0.28 Eos # (Auto) 0.12 Baso # (Auto) 0.01 Immature Gran # (Auto) 0.04 H PT Cancelled INR Cancelled APTT Cancelled PTT Ratio Cancelled Sodium 142 Potassium 3.8 Chloride 109 H Carbon Dioxide 25 Anion Gap 8.0 BUN 30 H Creatinine 1.45 H Est Cr Clr Drug Dosing 57.2 Est GFR ( Amer) 54.2 Est GFR (Non-Af Amer) 46.8 BUN/Creatinine Ratio 20.4 H Glucose 167 H POC Glucose Estimat Average Glucose Hemoglobin A1c Calcium 9.6 Magnesium 2.1 Total Bilirubin 0.4 AST 38 H ALT 48 Alkaline Phosphatase 88 Total Creatine Kinase Cancelled Troponin I < 0.015 Total Protein 6.5 Albumin 3.3 L Globulin 3.2 Albumin/Globulin Ratio 1.0 TSH 0.751 Urine Color Urine Appearance Urine pH Ur Specific [place] Urine Protein Urine Glucose (UA) Urine Ketones Urine Blood Urine Nitrite Urine Bilirubin Urine Urobilinogen Ur Leukocyte Esterase COVID-19 Eval Order SARS-CoV-2, RNA, NAAT 05/28/20 05/28/20 05/28/20 17:02 18:30 18:40 WBC RBC Hgb Hct MCV MCH MCHC RDW Std Deviation RDW Coeff of Lianne Plt Count MPV Immature Gran % (Auto) Neut % (Auto) Lymph % (Auto) [place] % (Auto) Eos % (Auto) Baso % (Auto) Neut # (Auto) Lymph # (Auto) [place] # (Auto) Eos # (Auto) Baso # (Auto) Immature Gran # (Auto) PT 29.3 H INR 2.9 H APTT 38.4 H PTT Ratio 1.4 Sodium Potassium Chloride Carbon Dioxide Anion Gap BUN Creatinine Est Cr Clr Drug Dosing Est GFR ( Amer) Est GFR (Non-Af Amer) BUN/Creatinine Ratio Glucose POC Glucose Estimat Average Glucose Hemoglobin A1c Calcium Magnesium Total Bilirubin AST ALT Alkaline Phosphatase Total Creatine Kinase 141 Troponin I < 0.015 Total Protein Albumin Globulin Albumin/Globulin Ratio TSH Urine Color Yellow Urine Appearance Clear Urine pH 7.5 Ur Specific [place] 1.012 Urine Protein Negative Urine Glucose (UA) Negative Urine Ketones Negative Urine Blood Negative Urine Nitrite Negative Urine Bilirubin Negative Urine Urobilinogen Negative Ur Leukocyte Esterase Negative COVID-19 Eval Order SARS-CoV-2, RNA, NAAT 05/28/20 05/28/20 05/28/20 21:10 21:10 21:48 WBC RBC Hgb Hct MCV MCH MCHC RDW Std Deviation RDW Coeff of Lianne Plt Count MPV Immature Gran % (Auto) Neut % (Auto) Lymph % (Auto) [place] % (Auto) Eos % (Auto) Baso % (Auto) Neut # (Auto) Lymph # (Auto) [place] # (Auto) Eos # (Auto) Baso # (Auto) Immature Gran # (Auto) PT INR APTT PTT Ratio Sodium Potassium Chloride Carbon Dioxide Anion Gap BUN Creatinine Est Cr Clr Drug Dosing Est GFR ( Amer) Est GFR (Non-Af Amer) BUN/Creatinine Ratio Glucose POC Glucose Estimat Average Glucose Hemoglobin A1c Calcium Magnesium Total Bilirubin AST ALT Alkaline Phosphatase Total Creatine Kinase Troponin I Total Protein Albumin Globulin Albumin/Globulin Ratio TSH Urine Color Urine Appearance Urine pH Ur Specific [place] Urine Protein Urine Glucose (UA) Urine Ketones Urine Blood Urine Nitrite Urine Bilirubin Urine Urobilinogen Ur Leukocyte Esterase COVID-19 Eval Order Covid19 [facility] Covid19 [facility] SARS-CoV-2, RNA, NAAT See Comment 05/28/20 05/29/20 05/29/20 21:48 05:16 05:16 WBC 3.83 L RBC 3.53 L Hgb 9.9 L Hct 31.0 L MCV 87.8 MCH 28.0 MCHC 31.9 L RDW Std Deviation 47.5 H RDW Coeff of Lianne 14.7 H Plt Count 164 MPV 9.8 Immature Gran % (Auto) 1.0 Neut % (Auto) 60.8 Lymph % (Auto) 26.4 [place] % (Auto) 5.0 Eos % (Auto) 6.0 Baso % (Auto) 0.8 Neut # (Auto) 2.33 Lymph # (Auto) 1.01 L [place] # (Auto) 0.19 Eos # (Auto) 0.23 Baso # (Auto) 0.03 Immature Gran # (Auto) 0.04 H PT INR APTT PTT Ratio Sodium 144 Potassium 3.5 Chloride 114 H Carbon Dioxide 24 Anion Gap 6.0 BUN 26 H Creatinine 1.30 Est Cr Clr Drug Dosing 63.9 Est GFR ( Amer) 61.9 Est GFR (Non-Af Amer) 53.4 BUN/Creatinine Ratio 20.2 H Glucose 172 H POC Glucose Estimat Average Glucose Hemoglobin A1c Calcium 8.7 Magnesium Total Bilirubin 0.3 AST 25 ALT 38 Alkaline Phosphatase 59 Total Creatine Kinase Troponin I Total Protein 5.3 L Albumin 2.7 L Globulin 2.6 Albumin/Globulin Ratio 1.0 TSH Urine Color Urine Appearance Urine pH Ur Specific [place] Urine Protein Urine Glucose (UA) Urine Ketones Urine Blood Urine Nitrite Urine Bilirubin Urine Urobilinogen Ur Leukocyte Esterase COVID-19 Eval Order SARS-CoV-2, RNA, NAAT NEGATIVE 05/29/20 05/29/20 05:16 07:39 WBC RBC Hgb Hct MCV MCH MCHC RDW Std Deviation RDW Coeff of Lianne Plt Count MPV Immature Gran % (Auto) Neut % (Auto) Lymph % (Auto) [place] % (Auto) Eos % (Auto) Baso % (Auto) Neut # (Auto) Lymph # (Auto) [place] # (Auto) Eos # (Auto) Baso # (Auto) Immature Gran # (Auto) PT INR APTT PTT Ratio Sodium Potassium Chloride Carbon Dioxide Anion Gap BUN Creatinine Est Cr Clr Drug Dosing Est GFR ( Amer) Est GFR (Non-Af Amer) BUN/Creatinine Ratio Glucose POC Glucose 149 H Estimat Average Glucose 163 Hemoglobin A1c 7.3 H Calcium Magnesium Total Bilirubin AST ALT Alkaline Phosphatase Total Creatine Kinase Troponin I Total Protein Albumin Globulin Albumin/Globulin Ratio TSH Urine Color Urine Appearance Urine pH Ur Specific [place] Urine Protein Urine Glucose (UA) Urine Ketones Urine Blood Urine Nitrite Urine Bilirubin Urine Urobilinogen Ur Leukocyte Esterase COVID-19 Eval Order SARS-CoV-2, RNA, NAAT Medications Administered Current Inpatient Medications Acetaminophen (Acetaminophen 325 Mg Tab) 650 mg PO Q4H PRN PRN Reason: Pain or Fever Stop: 06/28/20 00:18 Last Admin: 05/29/20 00:54 Dose: 650 mg Documented by: Albuterol (Albuterol Hfa 8 Gm Inhaler) 2 puffs INH Q4H PRN PRN Reason: Wheezing Stop: 06/28/20 00:18 Allopurinol (Allopurinol 100 Mg Tab) 200 mg PO HS [facility] Stop: 06/28/20 20:59 Atorvastatin Calcium (Atorvastatin 40 Mg Tab) 40 mg PO HS KIRSTEN Stop: 06/28/20 20:59 Azithromycin (Azithromycin 250 Mg Tab) 250 mg PO [id number] KIRSTEN Stop: 06/30/20 08:59 Dextrose (Dextrose 50% 50 Ml Syringe) 25 - 50 ml IV UD PRN; Protocol PRN Reason: Hypoglycemia Protocol Stop: 06/28/20 00:18 Finasteride (Finasteride 5 Mg Tab) 5 mg PO QAM KIRSTEN Stop: 06/28/20 08:59 Gabapentin (Gabapentin 600 Mg Tab) 600 mg PO BID KIRSTEN Stop: 06/28/20 08:59 Glucagon (Glucagon For Inj 1 Mg Vial) 1 mg SQ UD PRN; Protocol PRN Reason: Hypoglycemia Protocol Stop: 06/28/20 00:18 Glucose (Glucose 10 Tabs/Tube) 4 - 8 tabs PO UD PRN; Protocol PRN Reason: Hypoglycemia Protocol Stop: 06/28/20 00:18 Glucose (Glucose 40% Gel 15 Gm Tube) 15 - 30 gm PO UD PRN; Protocol PRN Reason: Hypoglycemia Protocol Stop: 06/28/20 00:18 Insulin Aspart (Insulin Aspart 100 Units/Ml 3 Ml Pen) 0 units SC ACHS KIRSTEN Stop: 06/28/20 07:29 Insulin Glargine (Insulin Glargine Solostar 100 Units/Ml 3 Ml Pen) 20 units SC BID KIRSTEN Stop: 06/28/20 08:59 Levetiracetam (Levetiracetam 500 Mg Tab) 1,000 mg PO BID KIRSTEN Stop: 06/28/20 08:59 Miscellaneous (Carbohydrates For Hypoglycemia ) 15 - 30 gm PO UD PRN PRN Reason: Hypoglycemia Protocol Stop: 06/28/20 00:18 Nitroglycerin (Nitroglycerin Sl 0.4 Mg/Tab Tab) 0.4 mg SL UD PRN PRN Reason: Chest Pain Stop: 06/28/20 00:18 Prednisone (Prednisone 1 Mg Tab) 6 mg PO QAM KIRSTEN Stop: 06/28/20 08:59 Topiramate (Topiramate 100 Mg Tab) 100 mg PO BID [facility] Stop: 06/28/20 08:59 PG Care Time/CCT Total # of Minutes Spent Total Time Spent with Patient: Total time spent is greater than 50% in coordination of care (as documented) at patient's floor/unit and/or counseling patient: Coding Level of Care Code 77119 Subseq Hosp Care Lvl 2 Diagnoses Syncope R55 Syncope type: unspecified Acute head trauma S09.90XA Encounter type: initial encounter Lower back pain M54.5 Back pain laterality: midline Chronicity: acute Sciatica presence: without sciatica Weakness R53.1 Seizure-like activity R56.9 Suprapubic pain R10.2 Diabetes E11.42; Z79.4 Diabetes mellitus complication detail: with polyneuropathy Diabetes mellitus complication status: with neurologic complications Diabetes mellitus 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 transplanted heart: [place] heart 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; M35.9 Rheumatoid arthritis M06.9 Polymyositis M33.20 Migraine G43.909 Constipation K59.00 Gout M10.9 Chronicity: unspecified Gout etiology: unspecified cause Gout site: unspecified site Encounter for screening for COVID-19 Z11.52 DVT prophylaxis Z29.9 Normocytic anemia D64.9 (1) Acute head trauma Encounter type: initial encounter Qualified Code(s): S09.90XA - Unspecified injury of head, initial encounter (2) Lower back pain Back pain laterality: midline Chronicity: acute Sciatica presence: without sciatica Qualified Code(s): M54.5 - Low back pain (3) Diabetes Diabetes mellitus complication detail: with polyneuropathy Diabetes mellitus complication status: with neurologic complications Diabetes mellitus fpc insulin use: with fpc use Diabetes mellitus type: type 2 Qualified Code(s): E11.42 - Type 2 diabetes mellitus with diabetic polyneuropathy; 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 transplanted heart: [place] heart Qualified Code(s): I25.10 - Atherosclerotic heart disease of [place] coronary artery without angina pectoris (6) Syncope Syncope type: unspecified Qualified Code(s): R55 - Syncope and collapse
[2020-05-29] MEDS: INSULIN GLARGINE SOLOSTAR 100 UNITS/ML 3 ML PEN SC SCH ×2 (08:24→20:35)
[2020-05-29] MEDS: INSULIN ASPART 100 UNITS/ML 3 ML PEN SC SCH ×4 (08:25→20:35)
[2020-05-29] MEDS: GABAPENTIN 600 MG TAB PO SCH ×2 (08:27→20:34)
[2020-05-29] MEDS: FINASTERIDE 5 MG TAB PO SCH (08:27)
[2020-05-29] MEDS: predniSONE 1 MG TAB PO SCH (08:27)
[2020-05-29] MEDS: TOPIRAMATE 100 MG TAB PO SCH ×2 (08:27→20:34)
[2020-05-29] MEDS: levETIRAcetam 500 MG TAB PO SCH ×2 (08:28→20:33)
[2020-05-29] MEDS ORDERED: HYDROcodone/ACETAMINOPHEN 10/325 TAB PO PRN (10:51)
[2020-05-29 14:18] LABS: Hematocrit (blood only) 31.8 % (42-52); Hemoglobin 10.2 g/dL (14.0-18.0); Mean Corpuscular Hgb Conc 32.1 g/dL (32-36); Mean Corpuscular Volume 87.4 fL (80-100); Mean Platelet Volume 9.8 fL (7.4-10.4); Platelet Count 171 K/uL (130-400); RDW Coefficient of Variation 14.6 % (11.5-14.5); RDW Standard Deviation 46.6 fL (36.4-46.3); Red Blood Count 3.64 M/uL (4.7-6.1); White Blood Count 5.12 K/uL (4.8-10.8)
[2020-05-29 14:28] LABS: INR 2.8 (0.9-1.1); Prothrombin Time 28.2 Seconds (9.0-12.0)
[2020-05-29] MEDS: PANTOprazole 40 MG TAB PO SCH (15:37)
[2020-05-29] MEDS: WARFARIN SOD 5 MG TAB PO SCH (17:42)
[2020-05-29] MEDS: WARFARIN SOD 2 MG TAB PO SCH (17:43)
[2020-05-29] MEDS: ATORVASTATIN 40 MG TAB PO SCH (20:33)
[2020-05-29] MEDS: allopurinoL 100 MG TAB PO SCH (20:34)
[2020-05-29] MEDS: POLYETHYLENE (MIRALAX) 17 GM PACK PO PRN (21:08)
--- NOTE | 2020-05-29 22:53 | Billing Data ---
Date of Service May 29, 2020 Coding Level of Care Code 77165 OBS Care - Level 3
[2020-05-30 06:50] LABS: Basophils # (auto) 0.03 K/uL (0-0.2); Basophils % (auto) 0.6 %; Eosinophils # (auto) 0.19 K/uL (0-0.5); Eosinophils % (auto) 4.1 %; Hematocrit (blood only) 31.2 % (42-52); Hemoglobin 9.9 g/dL (14.0-18.0); Immature Granulocytes # (auto) 0.02 K/uL (0.00-0.02); Immature Granulocytes % (auto) 0.4 %; Lymphocytes # (auto) 0.96 K/uL (1.2-3.4); Lymphocytes % (auto) 20.6 %; Mean Corpuscular Hemoglobin 27.8 pg (25-34); Mean Corpuscular Hgb Conc 31.7 g/dL (32-36); Mean Corpuscular Volume 87.6 fL (80-100); Mean Platelet Volume 9.6 fL (7.4-10.4); Monocytes # (auto) 0.29 K/uL (0.11-0.59); Monocytes % (auto) 6.2 %; Neutrophils # (auto) 3.18 K/uL (1.4-6.5); Neutrophils % (auto) 68.1 %; Platelet Count 174 K/uL (130-400); RDW Coefficient of Variation 14.5 % (11.5-14.5); RDW Standard Deviation 46.3 fL (36.4-46.3); Red Blood Count 3.56 M/uL (4.7-6.1); White Blood Count 4.67 K/uL (4.8-10.8)
[2020-05-30 07:02] LABS: INR 2.5 (0.9-1.1); Prothrombin Time 25.1 Seconds (9.0-12.0)
[2020-05-30 07:25] LABS: BUN Creatinine Ratio 17.1 (10-20); Calcium 8.4 mg/dl (8.5-10.1); Creatinine Clr Calc Pharmacy 65.4 ml/min; Est GFR (African American) 64.2; Est GFR (Non-African American) 55.4; Potassium 3.5 mmol/L (3.5-5.1)
--- NOTE | 2020-05-30 08:05 | Hospitalist Progress Note ---
Date of Service May 30, 2020 Assessment & Plan (1) Syncope: 75 y/o M w/ hx of CAD (w/ stent), recurrent seizure-like activity, and episode of stroke-like symptoms (12/31/2019) who presents w/ mechanical fall and loss of consciousness likely 2/2 concussion from hitting his occiput. Stable. evaluated by Neurology. Pt feels his falling over was from his legs giving out from his lumbar radiculopathy, will have MRI l/s spine to compare to december 2019, and consult Dr Agarwal, PT/OT No arrhythmia on telemetry dvt ppx: home warfarin temporarily held because INR 2.9 05/28/20, 2.5 05/30/20 code: DNR/DNI (2) Acute head trauma: - monitor clinically for concussion symptoms (3) Lower back pain: - chronic - per CT of lumbar spine, no evidence of spinal stenosis. L2-L5 postlaminectomy changes. no records of this surgery in [facility] - tylenol 650mg PO q4h prn for painplus prn Vicodin 5 mg p.o. q.8 (4) Seizure-like activity: - hx of multiple episodes in 2019. per neurology notes (both [facility] and [place]), had questioned if epileptic vs non epileptic. psychogenic had also been on differential - neg eegs in past - Follows Dr. Sheikh at [facility] and another neurologist at [place]. - has upcoming neuro appointment in May 2020 w/ plans to do 48 hour eeg - on large regimen of neurological medications, Keppra 1000 BID, topiramate 100 BID, and gabapentin 600 BID Neurology recommends continuing on his current medications. (5) Diabetes: - home regimen per patient: 36u lantus BID. novolog SSI before meals and at bedtime - regimen during this admission: 20u lantus BID + SSI (correction factor 20, carb ratio 7). Weight based w/ chronic steroid use. 6 mg prednisone is low dose, consider decreasing insulin regimen slightly as needed. achs bsg - 10u (instead of 20u) Lantus PM of because had been NPO for 12 hours (6) History of gastric bypass: - avoid NSAIDs (7) Chronic use of steroids: - for RA, polymyositis, ILD - 6 month+ - no indication for stress dosing at this time. prednisone 6 mg a day (8) Chronic kidney disease, stage 3a: - hx R partial nephrectomy 1987 (9) CAD (coronary artery disease): - stent s/p occlusion of aortic aneurysm repair graft - 05/17/19 cardiac cath: patent L main stent. mild nonobstructive CAD. normally functioning mechanical AVR (10) Interstitial lung disease due to connective tissue disease: - home O2 2L at night only, every night (11) Rheumatoid arthritis: - chronic joint pains - continue home prednisone, chronic (12) Polymyositis: - continue daily prednisone (13) Migraine: - chronic, no current complaints - sees Dr. Andrea Underwood ([facility]), last saw last wk (14) DVT prophylaxis: - on warfarin 7.5 daily, therapeutic anticoag - INR 2.9 this admission Recheck INR, ordered urgent and the a.m.. Plan on restarting warfarin will recheck labs prior. Admission and Anticipated Discharge Date Admission Date: May 28, 2020 Subjective He does have some remaining back discomfort after his fall. Pt feels that all his issues return to his back and that in the past he was considering lumbar surgery, supposed to have follow up with [facility] Dr Agarwal, will have MRI lumbar spine and I personally spoke to Dr Agarwal who will see pt 05/31/20 No fevers chills abdominal pain chest pain dyspnea. He denies any seizure-like symptoms Review of Systems Review of Systems: Mild distress and fatigue no headache, blurry or double vision no speech or swallowing issues no chest pain, pressure or palpitations no shortness of breath, cough or wheezes no abdominal pain, nausea or vomiting, diarrhea or constipation no dysuria, hematuria or frequency no focal joint pain or swelling lower back pain, CVA tenderness +/- radicular pain no bruising, bleeding or rashes no focal signs of weakness or numbness or altered sensation no complaints of anxiety or depression.. Physical Exam Physical Exam: The patient appeared chronically ill Vital signs as documented. Head exam is normocephalic atraumatic no scleral icterus Neck is without JVD, thyromegaly, or carotid bruits. Lungs are clear to auscultation, no focal loss of breath sounds Cardiac exam, Rhythm is regular.. No murmurs, rubs or gallops. Abdominal exam reveals normal bowel sounds, soft non tender, no masses Extremities are nonedematous and both pedal pulses are present Neurologic exam is alert and oriented, no focal loss of strength or sensation does not have reflexes at the patella Skin is without bruises or rashes Psychologically is without concerns for anxiety or depression. Results & Data Results & Data ([facility]) Vital Signs (Past 12 Hours) Vital Signs Temp Pulse Pulse Resp BP Pulse Ox 05/30/20 07:39 97.5 F L 70 18 106/66 96 05/30/20 07:00 81 05/30/20 03:49 97.5 F L 65 20 129/73 96 05/29/20 23:00 97.7 F 78 20 112/68 96 05/29/20 22:40 70 PG Care Time/CCT Total # of Minutes Spent Total Time Spent with Patient: Total time spent is greater than 50% in coordination of care (as documented) at patient's floor/unit and/or counseling patient: Coding Level of Care Code 77778 Subseq Hosp Care Lvl 2 Diagnoses Syncope R55 Syncope type: unspecified Acute head trauma S09.90XA Encounter type: initial encounter Lower back pain M54.5 Back pain laterality: midline Chronicity: acute Sciatica presence: without sciatica Seizure-like activity R56.9 Diabetes E11.42; Z79.4 Diabetes mellitus complication detail: with polyneuropathy Diabetes mellitus complication status: with neurologic complications Diabetes mellitus termite exterminator helper insulin use: with termite exterminator helper use Diabetes mellitus type: type 2 History of gastric bypass Z98.84 Chronic use of steroids Chronic kidney disease, stage 3a N18.3 CAD (coronary artery disease) I25.10 Associated angina: without angina Coronary Disease-Associated Artery/Lesion type: [place] artery [place] vs. transplanted heart: [place] heart 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; M35.9 Rheumatoid arthritis M06.9 Polymyositis M33.20 Migraine G43.909 DVT prophylaxis Z29.9 (1) Acute head trauma Encounter type: initial encounter Qualified Code(s): S09.90XA - Unspecified injury of head, initial encounter (2) Lower back pain Back pain laterality: midline Chronicity: acute Sciatica presence: without sciatica Qualified Code(s): M54.5 - Low back pain (3) Diabetes Diabetes mellitus complication detail: with polyneuropathy Diabetes mellitus complication status: with neurologic complications Diabetes mellitus termite exterminator helper insulin use: with termite exterminator helper use Diabetes mellitus type: type 2 Qualified Code(s): E11.42 - Type 2 diabetes mellitus with diabetic polyneuropathy; 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 transplanted heart: [place] heart Qualified Code(s): I25.10 - Atherosclerotic heart disease of [place] coronary artery without angina pectoris (5) Syncope Syncope type: unspecified Qualified Code(s): R55 - Syncope and collapse
[2020-05-30] MEDS: levETIRAcetam 500 MG TAB PO SCH ×2 (08:33→22:00)
[2020-05-30] MEDS: predniSONE 1 MG TAB PO SCH (08:33)
[2020-05-30] MEDS: POLYETHYLENE (MIRALAX) 17 GM PACK PO SCH (08:34)
[2020-05-30] MEDS: GABAPENTIN 600 MG TAB PO SCH ×2 (08:35→22:01)
[2020-05-30] MEDS: PANTOprazole 40 MG TAB PO SCH (08:37)
[2020-05-30] MEDS: INSULIN GLARGINE SOLOSTAR 100 UNITS/ML 3 ML PEN SC SCH ×2 (08:37→21:55)
[2020-05-30] MEDS: TOPIRAMATE 100 MG TAB PO SCH ×2 (08:37→22:02)
[2020-05-30] MEDS: FINASTERIDE 5 MG TAB PO SCH (08:37)
[2020-05-30] MEDS: INSULIN ASPART 100 UNITS/ML 3 ML PEN SC SCH ×4 (08:37→21:53)
[2020-05-30] MEDS: ACETAMINOPHEN 325 MG TAB PO PRN ×2 (08:45→21:58)
[2020-05-30] MEDS: WARFARIN SOD 2 MG TAB PO SCH (18:05)
[2020-05-30] MEDS: WARFARIN SOD 5 MG TAB PO SCH (18:06)
--- NOTE | 2020-05-30 18:15 | Magnetic Resonance Report ---
MRI OF THE LUMBAR SPINE WITHOUT CONTRAST CLINICAL HISTORY: radicular symptoms with weakness COMPARISON STUDY: Lumbar spine MRI January 21, 2020. CT of the lumbar spine May 28, 2020. TECHNIQUE: Utilizing a 1.5 Eboni magnet and dedicated coil, multiplanar, multiecho imaging of the silvina ar spine was performed without IV contrast. FINDINGS: For purposes of numbering on this exam, the L5-S1 disc space is assigned to axial image 29 of 32. Ali gnment of the lumbar spine is anatomic. There is no acute fracture. There is no suspicious marrow rep lacement. Schmorl's node along the superior endplate of L4 is noted. Postoperative findings consisten t with L2-L4 laminectomy are noted. Mild increased T2 signal within the operative bed is unchanged. T he postoperative appearance is unchanged since MRI January 20, 2020. There is no intracanalicular m ass or fluid collection. The conus terminates at the L1 level. Paravertebral soft tissues are unremar kable. There is no evidence for discitis. The appearance of the lumbar spine is similar to MRI Septem 2019. L1-2: The central canal and neural foramen are patent. L2-3: There is facet arthrosis. The central canal and neural foramen are patent. L3-4: Note is made of disc space narrowing with disc bulge and a small central disc osteophyte comple x. There is no central canal stenosis status post decompression. Moderate to severe left neural lester inal stenosis is noted. This is similar to prior exam. There is mild right neural foraminal stenosis. L4-5: There is mild disc space narrowing with disc bulge and facet arthrosis. There is no residual ce ntral canal stenosis status post decompression. Left neural foramen is patent. There is moderate narr owing of the right neural foramen which is unchanged. L5-S1: There is marked disc space narrowing. There is facet arthrosis. Central canal is patent. There is moderate to severe bilateral neural foraminal stenosis. This is unchanged. IMPRESSION: 1. No significant change in appearance of the lumbar spine since MRI of January 21, 2020. Status po st L2-L4 laminectomy. No central canal stenosis. 2. Moderate to severe multilevel neural foraminal stenosis, most pronounced at the left L3-L4 and robert ateral L5-S1 neural foramen, as detailed above. 3. No lumbar spine fracture. 4. Moderate multilevel degenerative disc disease. Severe multilevel facet arthrosis. ACT 112: Negative or not required by law. Electronically signed by: John Paul Drummond M.D. 05/30/2020 6:13 PM
[2020-05-30] MEDS: ONDANSETRON 4 MG OD TAB PO PRN (21:58)
[2020-05-30] MEDS: allopurinoL 100 MG TAB PO SCH (22:01)
[2020-05-30] MEDS: ATORVASTATIN 40 MG TAB PO SCH (22:01)
[2020-05-31 06:58] LABS: Basophils # (auto) 0.01 K/uL (0-0.2); Basophils % (auto) 0.2 %; Eosinophils # (auto) 0.18 K/uL (0-0.5); Eosinophils % (auto) 3.4 %; Hematocrit (blood only) 31.9 % (42-52); Hemoglobin 10.2 g/dL (14.0-18.0); Immature Granulocytes # (auto) 0.02 K/uL (0.00-0.02); Immature Granulocytes % (auto) 0.4 %; Lymphocytes # (auto) 0.97 K/uL (1.2-3.4); Lymphocytes % (auto) 18.5 %; Mean Corpuscular Hemoglobin 27.6 pg (25-34); Mean Corpuscular Volume 86.2 fL (80-100); Mean Platelet Volume 9.6 fL (7.4-10.4); Monocytes # (auto) 0.23 K/uL (0.11-0.59); Monocytes % (auto) 4.4 %; Neutrophils # (auto) 3.83 K/uL (1.4-6.5); Neutrophils % (auto) 73.1 %; Platelet Count 162 K/uL (130-400); RDW Coefficient of Variation 14.8 % (11.5-14.5); RDW Standard Deviation 46.5 fL (36.4-46.3); White Blood Count 5.24 K/uL (4.8-10.8)
[2020-05-31] MEDS: levETIRAcetam 500 MG TAB PO SCH ×2 (08:54→19:57)
[2020-05-31] MEDS: TOPIRAMATE 100 MG TAB PO SCH ×2 (08:54→19:57)
[2020-05-31] MEDS: GABAPENTIN 600 MG TAB PO SCH ×2 (08:54→19:56)
[2020-05-31] MEDS: predniSONE 1 MG TAB PO SCH (08:54)
[2020-05-31] MEDS: AZITHROMYCIN 250 MG TAB PO SCH (08:54)
[2020-05-31] MEDS: POLYETHYLENE (MIRALAX) 17 GM PACK PO SCH (08:54)
[2020-05-31] MEDS: FINASTERIDE 5 MG TAB PO SCH (08:55)
[2020-05-31] MEDS: PANTOprazole 40 MG TAB PO SCH (08:55)
[2020-05-31] MEDS: INSULIN GLARGINE SOLOSTAR 100 UNITS/ML 3 ML PEN SC SCH ×2 (09:00→20:42)
[2020-05-31] MEDS: INSULIN ASPART 100 UNITS/ML 3 ML PEN SC SCH ×4 (09:00→20:43)
[2020-05-31] MEDS: ACETAMINOPHEN 325 MG TAB PO PRN ×2 (09:01→19:56)
--- NOTE | 2020-05-31 09:04 | Hospitalist Progress Note ---
Date of Service May 31, 2020 Assessment & Plan (1) Syncope: 75 y/o M w/ hx of CAD (w/ stent), recurrent seizure-like activity, and episode of stroke-like symptoms (12/31/2019) who presents w/ mechanical fall and loss of consciousness likely 2/2 concussion from hitting his occiput. Stable. evaluated by Neurology, no further input Pt feels his falling over was from his legs giving out from his lumbar radiculopathy MRI lumbar spine with prior decmpression L3-5 and he has foraminal narrowing, compression of L5 nerve root at L5/S1 Dr. Agarwal would recommend diagnostic L5 injection PT/OT evaluations, set up injection with pain management No arrhythmia on telemetry dvt ppx: home warfarin temporarily held due to supratherapeutic INR check INR tomorrow code: DNR/DNI (2) Acute head trauma: - monitor clinically for concussion symptoms no bleeding on CT head (3) Lower back pain: - chronic - now worsening symptoms, see MRI report continue PT/OT and set up for L5 injection - tylenol 650mg PO q4h prn for painplus prn Vicodin 5 mg p.o. q.8 (4) Seizure-like activity: - hx of multiple episodes in 2019. per neurology notes (both [facility] and [place]), had questioned if epileptic vs non epileptic. psychogenic had also been on differential - neg eegs in past - Follows Dr. Sheikh at [facility] and another neurologist at [place]. - has upcoming neuro appointment in May 2020 w/ plans to do 48 hour eeg - on large regimen of neurological medications, Keppra 1000 BID, topiramate 100 BID, and gabapentin 600 BID Neurology recommends continuing on his current medications, will sign off today (5) Diabetes: - home regimen per patient: 36u lantus BID. novolog SSI before meals and at bedtime - regimen during this admission: 20u lantus BID + SSI (correction factor 20, carb ratio 7). Weight based w/ chronic steroid use. 6 mg prednisone is low dose, consider decreasing insulin regimen slightly as needed. achs bsg - 10u (instead of 20u) Lantus PM of because had been NPO for 12 hours (6) History of gastric bypass: - avoid NSAIDs (7) Chronic use of steroids: - for RA, polymyositis, ILD - 6 month+ - no indication for stress dosing at this time. prednisone 6 mg a day (8) Chronic kidney disease, stage 3a: - hx R partial nephrectomy 1987 (9) CAD (coronary artery disease): - stent s/p occlusion of aortic aneurysm repair graft - 05/17/19 cardiac cath: patent L main stent. mild nonobstructive CAD. normally functioning mechanical AVR (10) Interstitial lung disease due to connective tissue disease: - home O2 2L at night only, every night (11) Rheumatoid arthritis: - chronic joint pains - continue home prednisone, chronic (12) Polymyositis: - continue daily prednisone (13) Migraine: - chronic, no current complaints - sees Dr. Andrea Underwood ([place] neuro), last saw last wk (14) DVT prophylaxis: - check INR tomorrow Dr. 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 Agarwal, would want to get L5 nerve root block as outpatient, try to arrange for this soon would not want to jump into surgical correction but compression of L5 nerve root likely etiology of his symptoms otherwise he is doing well, he is eating, no chest pain, no dyspnea, no fever/chills no recent seizure like activity, plans for 48 hour EEG monitor at the end of this month at [place] Review of Systems Review of Systems: All systems reviewed & are unremarkable except as noted in Subjective Musculoskeletal: + back pain, + joint pain, + stiffness and + muscle weakness Physical Exam Constitutional: WD/WN, vitals as above no acute distress Neck: trachea midline, no thyromegaly Respiratory: normal respiratory effort, lungs clear to auscultation Cardiovascular: RRR, no murmur, no edema Gastrointestinal (Abdomen): normal bowel sounds, soft, nontender, no hepatosplenomegaly Musculoskeletal: no cyanosis or clubbing, extremities motor strength 5/5 Skin: no rashes, warm and dry Neurologic: patellar DTR's 2+ bilat, sensation intact and PERRL, EOMI, accommodation nl, no face palsy, no dysarthria Psychiatric: A+Ox3, euthymic affect Lymphatic: no cervical or axillary lymphadenopathy Results & Data Results & Data ([facility]) Vital Signs (Past 12 Hours) Vital Signs Temp Pulse Pulse Resp BP BP Pulse Ox 05/31/20 07:29 36.5 C 50 L 18 97/62 L 96 05/31/20 07:22 62 05/31/20 04:00 36.4 C L 103 H 20 77/44 L 97 05/31/20 00:00 74 05/30/20 23:00 37 C 70 20 99/56 L 97 Laboratory Results Laboratory Results - last 24 hr 05/30/20 05/30/20 05/30/20 11:44 16:08 16:51 WBC RBC Hgb Hct MCV MCH MCHC RDW Std Deviation RDW Coeff of Lianne Plt Count MPV Immature Gran % (Auto) Neut % (Auto) Lymph % (Auto) [place] % (Auto) Eos % (Auto) Baso % (Auto) Neut # (Auto) Lymph # (Auto) [place] # (Auto) Eos # (Auto) Baso # (Auto) Immature Gran # (Auto) POC Glucose 240 H 180 H Stl C. diff Tox B Gene Negative Cdiff Gene 05/30/20 05/31/20 05/31/20 20:05 06:48 07:25 WBC 5.24 RBC 3.70 L Hgb 10.2 L Hct 31.9 L MCV 86.2 MCH 27.6 MCHC 32.0 RDW Std Deviation 46.5 H RDW Coeff of Lianne 14.8 H Plt Count 162 MPV 9.6 Immature Gran % (Auto) 0.4 Neut % (Auto) 73.1 Lymph % (Auto) 18.5 [place] % (Auto) 4.4 Eos % (Auto) 3.4 Baso % (Auto) 0.2 Neut # (Auto) 3.83 Lymph # (Auto) 0.97 L [place] # (Auto) 0.23 Eos # (Auto) 0.18 Baso # (Auto) 0.01 Immature Gran # (Auto) 0.02 POC Glucose 182 H 112 H Stl C. diff Tox B Gene Medications Administered Current Inpatient Medications Acetaminophen (Acetaminophen 325 Mg Tab) 650 mg PO Q4H PRN PRN Reason: Pain or Fever Stop: 06/28/20 00:18 Last Admin: 05/31/20 09:01 Dose: 650 mg Documented by: Hydrocodone Bitart/Acetaminophen (Hydrocodone/Acetaminophen 10/325 Tab) 0.5 tab PO Q8 PRN PRN Reason: Pain Stop: 06/12/20 10:50 Albuterol (Albuterol Hfa 8 Gm Inhaler) 2 puffs INH Q4H PRN PRN Reason: Wheezing Stop: 06/28/20 00:18 Allopurinol (Allopurinol 100 Mg Tab) 200 mg PO [facility] Stop: 06/28/20 20:59 Last Admin: 05/30/20 22:01 Dose: 200 mg Documented by: Atorvastatin Calcium (Atorvastatin 40 Mg Tab) 40 mg PO [facility] Stop: 06/28/20 20:59 Last Admin: 05/30/20 22:01 Dose: 40 mg Documented by: Azithromycin (Azithromycin 250 Mg Tab) 250 mg PO MoWeFr@0900 [facility] Stop: 06/30/20 08:59 Last Admin: 05/31/20 08:54 Dose: 250 mg Documented by: Bisacodyl (Bisacodyl 10 Mg Supp) 10 mg [place] DAILY PRN PRN Reason: Constipation Stop: 06/28/20 20:55 Dextrose (Dextrose 50% 50 Ml Syringe) 25 - 50 ml IV UD PRN; Protocol PRN Reason: Hypoglycemia Protocol Stop: 06/28/20 00:18 Finasteride (Finasteride 5 Mg Tab) 5 mg PO QAM [facility] Stop: 06/28/20 08:59 Last Admin: 05/31/20 08:55 Dose: 5 mg Documented by: Gabapentin (Gabapentin 600 Mg Tab) 600 mg PO BID [facility] Stop: 06/28/20 08:59 Last Admin: 05/31/20 08:54 Dose: 600 mg Documented by: Glucagon (Glucagon For Inj 1 Mg Vial) 1 mg SQ UD PRN; Protocol PRN Reason: Hypoglycemia Protocol Stop: 06/28/20 00:18 Glucose (Glucose 10 Tabs/Tube) 4 - 8 tabs PO UD PRN; Protocol PRN Reason: Hypoglycemia Protocol Stop: 06/28/20 00:18 Glucose (Glucose 40% Gel 15 Gm Tube) 15 - 30 gm PO UD PRN; Protocol PRN Reason: Hypoglycemia Protocol Stop: 06/28/20 00:18 Insulin Aspart (Insulin Aspart 100 Units/Ml 3 Ml Pen) 0 units SC ACHS [facility] Stop: 06/28/20 07:29 Last Admin: 05/31/20 09:00 Dose: 1 units Documented by: Insulin Glargine (Insulin Glargine Solostar 100 Units/Ml 3 Ml Pen) 20 units SC BID [facility] Stop: 06/28/20 08:59 Last Admin: 05/31/20 09:00 Dose: 20 units Documented by: Levetiracetam (Levetiracetam 500 Mg Tab) 1,000 mg PO BID [facility] Stop: 06/28/20 08:59 Last Admin: 05/31/20 08:54 Dose: 1,000 mg Documented by: Miscellaneous (Carbohydrates For Hypoglycemia ) 15 - 30 gm PO UD PRN PRN Reason: Hypoglycemia Protocol Stop: 06/28/20 00:18 Nitroglycerin (Nitroglycerin Sl 0.4 Mg/Tab Tab) 0.4 mg SL UD PRN PRN Reason: Chest Pain Stop: 06/28/20 00:18 Ondansetron HCl (Ondansetron 4 Mg Od Tab) 4 mg PO Q8H PRN PRN Reason: Nausea Stop: 06/29/20 21:13 Last Admin: 05/30/20 21:58 Dose: 4 mg Documented by: Pantoprazole Sodium (Pantoprazole 40 Mg Tab) 40 mg PO QAM [facility] Stop: 06/28/20 13:44 Last Admin: 05/31/20 08:55 Dose: 40 mg Documented by: Polyethylene Glycol (Polyethylene (Miralax) 17 Gm Pack) 17 gm PO DAILY [facility] Stop: 06/29/20 08:59 Last Admin: 05/31/20 08:54 Dose: Not Given Documented by: Polyethylene Glycol (Polyethylene (Miralax) 17 Gm Pack) 17 gm PO DAILY PRN PRN Reason: Constipation Stop: 06/28/20 20:55 Last Admin: 05/29/20 21:08 Dose: 17 gm Documented by: Prednisone (Prednisone 1 Mg Tab) 6 mg PO QAM [facility] Stop: 06/28/20 08:59 Last Admin: 05/31/20 08:54 Dose: 6 mg Documented by: Topiramate (Topiramate 100 Mg Tab) 100 mg PO BID [facility] Stop: 06/28/20 08:59 Last Admin: 05/31/20 08:54 Dose: 100 mg Documented by: Warfarin Sodium (Warfarin Sod 5 Mg Tab) 5 mg PO DAILY@1600 [facility] Stop: 06/28/20 15:59 Last Admin: 05/30/20 18:06 Dose: 5 mg Documented by: Warfarin Sodium (Warfarin Sod 2 Mg Tab) 2 mg PO DAILY@1600 [facility] Stop: 06/28/20 15:59 Last Admin: 05/30/20 18:05 Dose: 2 mg Documented by: PG Care Time/CCT Total # of Minutes Spent Total Time Spent with Patient: Total time spent is greater than 50% in coordination of care (as documented) at patient's floor/unit and/or counseling patient: Coding Level of Care Code 17181 Subseq Hosp Care Lvl 3 Diagnoses Syncope R55 Syncope type: unspecified Acute head trauma S09.90XA Encounter type: initial encounter Lower back pain M54.5 Back pain laterality: midline Chronicity: acute Sciatica presence: without sciatica Seizure-like activity R56.9 Diabetes E11.42; Z79.4 Diabetes mellitus complication detail: with polyneuropathy Diabetes mellitus complication status: with neurologic complications Diabetes mellitus care home insulin use: with termite control representative use Diabetes mellitus type: type 2 History of gastric bypass Z98.84 Chronic use of steroids Chronic kidney disease, stage 3a N18.3 CAD (coronary artery disease) I25.10 Associated angina: without angina Coronary Disease-Associated Artery/Lesion type: [place] artery [place] vs. transplanted heart: [place] heart 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; M35.9 Rheumatoid arthritis M06.9 Polymyositis M33.20 Migraine G43.909 DVT prophylaxis Z29.9 (1) Acute head trauma Encounter type: initial encounter Qualified Code(s): S09.90XA - Unspecified injury of head, initial encounter (2) Lower back pain Back pain laterality: midline Chronicity: acute Sciatica presence: without sciatica Qualified Code(s): M54.5 - Low back pain (3) Diabetes Diabetes mellitus complication detail: with polyneuropathy Diabetes mellitus complication status: with neurologic complications Diabetes mellitus care home insulin use: with termite control representative use Diabetes mellitus type: type 2 Qualified Code(s): E11.42 - Type 2 diabetes mellitus with diabetic polyneuropathy; Z79.4 - termite control representative (current) use of insulin (4) CAD (coronary artery disease) Associated angina: without angina Coronary Disease-Associated Artery/Lesion type: [place] artery [place] vs. transplanted heart: [place] heart Qualified Code(s): I25.10 - Atherosclerotic heart disease of [place] coronary artery without angina pectoris (5) Syncope Syncope type: unspecified Qualified Code(s): R55 - Syncope and collapse
--- NOTE | 2020-05-31 10:33 | XRay Report ---
LUMBAR SPINE 7 VIEWS with flexion and extension HISTORY: Low back pain, standing films COMPARISON: Lumbar spine MRI 05/30/2020. FINDINGS: There is no fracture. No subluxation. Visualized sacrum is intact. Gastric lap band tubing is noted. Mild dextroscoliosis. L2-L4 laminectomies are again noted. Prior cholecystectomy. Mild fac et degenerative changes within the lower lumbar spine. Severe disc space narrowing at L5-S1. Mild dis c space narrowing at L3-L4 and L4-L5. This is similar to the prior study. Alignment remains intact th roughout flexion and extension IMPRESSION: 1. No acute fracture or subluxation within the lumbar spine. 2. Mild dextroscoliosis. 3. Degenerative and postoperative changes as described above. ACT 112: Negative or not required by law. Electronically signed by: Jc Che M.D. 05/31/2020 10:31 AM
--- NOTE | 2020-05-31 11:37 | Orthopedic Consultation ---
Date of Consultation May 31, 2020 Assessment & Plan (1) Neurogenic claudication due to lumbar spinal stenosis: I had the opportunity review his x-rays and MRI films. He does have evidence of previous decompression L3-4 L4-5. There is severe to space collapse neuroforaminal disease most impressive at L5 and S1. I have some suspicion that this could be the etiology of his symptoms. He may be compressing the L5 nerve root and exhibiting back and buttock pain. I proceed with caution before offering any surgical intervention. It would be ideal to have him undergo a diagnostic therapeutic L5 nerve root block. This can be arranged in the hospital on an outpatient basis through my office. He is however on anticoagulation meds and these will need to be withheld. Present on Admission?: Yes History of Present Illness Reason for Consultation: Back and bilateral buttock pain Attending Physician: Russell Ram, DO History of Present Illness This is a 75-year-old male who presents with chronic persistent back and bilateral buttock pain. He states he has had a laminectomy done in 2019. He had some improvement afterwards but continued to have back and upper buttock pain afterwards. The symptoms are most pronounced with standing and walking. In fact he is quite limited. Sitting and lying supine is very tolerable. He says he has had a course of injections which provided temporary relief. He denies any weakness in his lower extremities. Denies any bowel bladder issues. Allergies Allergy/AdvReac Type Severity Reaction Status Date / Time Iodinated Contrast Media Allergy Severe Anaphylaxis Verified 05/28/20 18:57 shellfish derived Allergy Severe Anaphylaxis Verified 05/28/20 18:57 Tetanus Vaccines and Toxoid Allergy Unknown Unknown Verified 05/28/20 18:57 Home Medications Medication Instructions Recorded Confirmed Type Trulicity 1.5 mg SUBCUT SA 01/20/20 05/28/20 History albuterol sulfate [Ventolin HFA] 2 puff INHALATION Q4H PRN 01/20/20 05/28/20 History allopurinol 200 mg PO HS 01/20/20 05/28/20 History azithromycin 250 mg PO .[email or web address] 01/20/20 05/28/20 History cholecalciferol (vitamin D3) 2,000 unit PO 01/20/20 05/28/20 History [Vitamin D3] finasteride 5 mg PO QA 01/20/20 05/28/20 History insulin aspart U-100 See Rx Instructions .ROUTE .COMPLEX 01/20/20 05/28/20 History ipratropium-albuterol 3 ml INHALATION QID PRN 01/20/20 05/28/20 History nitroglycerin 0.4 mg SUBLINGUAL DIRECTED PRN 01/20/20 05/28/20 History torsemide 20 mg PO QAM 01/20/20 05/28/20 History trazodone 50 mg PO HS PRN 01/20/20 05/28/20 History [id number] 1 tab PO HS 02/05/20 05/28/20 History warfarin 7.5 mg PO HS 03/02/20 05/28/20 History Linzess 145 mcg PO QAM #30 cap 03/12/20 05/28/20 Rx gabapentin 600 mg tablet 600 mg PO BID tab 04/02/20 05/28/20 History levetiracetam 1,000 mg tablet 1,000 mg PO BID 90 Days #180 tab 04/02/20 05/28/20 Rx topiramate 100 mg tablet 100 mg PO BID 30 Days #60 tab 05/17/20 05/28/20 Rx atorvastatin 40 mg PO HS 05/28/20 05/28/20 History insulin glargine [Lantus Solostar 50 unit SUBCUT BID 05/28/20 05/28/20 History U-100 Insulin] prednisone 6 mg PO QAM 05/28/20 05/28/20 History Patient History Medical History (Updated 05/31/20 @ 11:35 by Darius Agarwal DO) CAD (coronary artery disease) Dehydration Diabetes HLD (hyperlipidemia) Interstitial lung disease Interstitial lung disease due to connective tissue disease Lung nodule Polymyositis Polymyositis Prostate cancer s/p XRT Rheumatoid arthritis Seizure-like activity Stroke-like symptom 12/2019, w/ blurry vision and dysarthria. mild R sided wkness. attending outpatient physical therapy w/ good improvement in strength (5+/5 strength of all 4 extremities as of 05/28/20) Thoracic ascending aortic aneurysm s/p repair Surgical History H/O hernia repair History of aortic valve replacement mechanical History of cholecystectomy History of fusion of cervical spine History of gastric bypass lap band History of heart artery stent History of lung biopsy 2019 History of partial nephrectomy Family History Other Coronary heart disease Rheumatoid arthritis Stroke Social History Smoking Status: Never smoker Second Hand Exposure: No; Hx Alcohol Use: No Hx Substance Use: No Preferred Language: [place] Communication Ability: Effective Hearing Ability: Hard of Hearing Machine Riveter Required: No Beliefs That Will Affect Care: None marital status: / Current Living Situation: Family Current Living Situation Comment: son Feels Safe at Home: Yes Safety Concerns: Feels Safe At This Time Assistive Devices: Glasses, Hearing Aid - Bilateral, Oxygen - at Night and Walker Physical Exam Physical Exam: On exam he is able to sit up in bed comfortably. He exhibits plus out of 5 bilateral plantar flexion dorsiflexion extensor hallucis longus quadriceps. Sensory symmetric and intact. Results & Data ([facility]) Vital Signs (Past 12 Hours) Vital Signs Temp Pulse Pulse Resp BP BP Pulse Ox 05/31/20 07:29 36.5 C 50 L 18 97/62 L 96 05/31/20 07:22 62 05/31/20 04:00 36.4 C L 103 H 20 77/44 L 97 05/31/20 00:00 74
[2020-05-31] MEDS: WARFARIN SOD 2 MG TAB PO SCH (16:19)
[2020-05-31] MEDS: WARFARIN SOD 5 MG TAB PO SCH (16:19)
[2020-05-31] MEDS: allopurinoL 100 MG TAB PO SCH (19:57)
[2020-05-31] MEDS: ATORVASTATIN 40 MG TAB PO SCH (19:58)
[2020-06-01 06:05] LABS: Basophils # (auto) 0.01 K/uL (0-0.2); Basophils % (auto) 0.2 %; Eosinophils # (auto) 0.17 K/uL (0-0.5); Eosinophils % (auto) 3.8 %; Hematocrit (blood only) 31.3 % (42-52); Hemoglobin 10.1 g/dL (14.0-18.0); Immature Granulocytes # (auto) 0.03 K/uL (0.00-0.02); Immature Granulocytes % (auto) 0.7 %; Lymphocytes # (auto) 0.95 K/uL (1.2-3.4); Lymphocytes % (auto) 21.3 %; Mean Corpuscular Hemoglobin 28.1 pg (25-34); Mean Corpuscular Hgb Conc 32.3 g/dL (32-36); Mean Corpuscular Volume 87.2 fL (80-100); Mean Platelet Volume 10.1 fL (7.4-10.4); Monocytes # (auto) 0.17 K/uL (0.11-0.59); Monocytes % (auto) 3.8 %; Neutrophils # (auto) 3.14 K/uL (1.4-6.5); Neutrophils % (auto) 70.2 %; Platelet Count 168 K/uL (130-400); RDW Coefficient of Variation 14.8 % (11.5-14.5); RDW Standard Deviation 46.7 fL (36.4-46.3); Red Blood Count 3.59 M/uL (4.7-6.1); White Blood Count 4.47 K/uL (4.8-10.8)
[2020-06-01] MEDS: ACETAMINOPHEN 325 MG TAB PO PRN ×2 (07:54→12:04)
[2020-06-01] MEDS: FINASTERIDE 5 MG TAB PO SCH (07:56)
[2020-06-01] MEDS: levETIRAcetam 500 MG TAB PO SCH ×2 (07:56→20:56)
[2020-06-01] MEDS: GABAPENTIN 600 MG TAB PO SCH ×2 (07:56→20:29)
[2020-06-01] MEDS: POLYETHYLENE (MIRALAX) 17 GM PACK PO SCH (07:57)
[2020-06-01] MEDS: predniSONE 1 MG TAB PO SCH (07:57)
[2020-06-01] MEDS: PANTOprazole 40 MG TAB PO SCH (07:58)
[2020-06-01] MEDS: TOPIRAMATE 100 MG TAB PO SCH ×2 (07:59→20:29)
[2020-06-01] MEDS: INSULIN GLARGINE SOLOSTAR 100 UNITS/ML 3 ML PEN SC SCH ×2 (09:13→20:33)
[2020-06-01] MEDS: INSULIN ASPART 100 UNITS/ML 3 ML PEN SC SCH ×4 (09:14→20:34)
[2020-06-01] MEDS: ALBUTEROL HFA 8 GM INHALER INH PRN ×2 (09:32→16:05)
--- NOTE | 2020-06-01 14:39 | Hospitalist Progress Note ---
Date of Service June 01, 2020 Assessment & Plan (1) Syncope: 75 y/o M w/ hx of CAD (w/ stent), recurrent seizure-like activity, and episode of stroke-like symptoms (12/31/2019) who presents w/ mechanical fall and loss of consciousness likely 2/2 concussion from hitting his occiput. Stable. evaluated by Neurology, no further input Pt feels his falling over was from his legs giving out from his lumbar radiculopathy MRI lumbar spine with prior decmpression L3-5 and he has foraminal narrowing, compression of L5 nerve root at L5/S1 Dr. Agarwal would recommend diagnostic L5 injection will hold Coumadin, see if we can improve his strength, get injection at Dr. Agarwal's office PT/OT evaluations No arrhythmia on telemetry dvt ppx: INR therapeutic today, hold Coumadin for possible injection later today code: DNR/DNI (2) Acute head trauma: - monitor clinically for concussion symptoms he is alert and oriented no bleeding on CT head (3) Lower back pain: - chronic - now worsening symptoms, see MRI report continue PT/OT and set up for L5 injection - tylenol 650mg PO q4h prn for painplus prn Vicodin 5 mg p.o. q.8 add low dose Dilaudid for any breakthrought pain (4) Seizure-like activity: - hx of multiple episodes in 2019. per neurology notes (both [facility] and [place]), had questioned if epileptic vs non epileptic. psychogenic had also been on differential - neg eegs in past - Follows Dr. Sheikh at [facility] and another neurologist at [place]. - has upcoming neuro appointment in May 2020 w/ plans to do 48 hour eeg - on large regimen of neurological medications, Keppra 1000 BID, topiramate 100 BID, and gabapentin 600 BID Neurology recommends continuing on his current medications, will sign off today (5) Diabetes: - home regimen per patient: 36u lantus BID. novolog SSI before meals and at bedtime - regimen during this admission: 20u lantus BID + SSI (correction factor 20, carb ratio 7). Weight based w/ chronic steroid use. 6 mg prednisone is low dose, consider decreasing insulin regimen slightly as needed. formerly [facility] bsg monitor for hypoglycemia, no episodes (6) History of gastric bypass: - avoid NSAIDs (7) Chronic use of steroids: - for RA, polymyositis, ILD - 6 month+ - no indication for stress dosing at this time. prednisone 6 mg a day (8) Chronic kidney disease, stage 3a: - hx R partial nephrectomy 1987 (9) CAD (coronary artery disease): - stent s/p occlusion of aortic aneurysm repair graft - 05/17/19 cardiac cath: patent L main stent. mild nonobstructive CAD. normally functioning mechanical AVR (10) Interstitial lung disease due to connective tissue disease: - home O2 2L at night only, every night (11) Rheumatoid arthritis: - chronic joint pains - continue home prednisone, chronic (12) Polymyositis: - continue daily prednisone (13) Migraine: - chronic, no current complaints - sees Dr. Andrea Underwood ([facility]), last saw last wk (14) DVT prophylaxis: INR > 2 Dr. Agarwal would recommend holding Coumadin for injection Admission and Anticipated Discharge Date Admission Date: May 30, 2020 Subjective patient says his pain is worse today, he is not sure he will be able to go home discussed with Dr. Agarwal, if he would be better and able to go home then he could arrange L5 nerve root injection at his office he is participating with therapy he is eating well discussed holding Coumadin, he understands reasons he had some dyspnea earlier today, got albuterol treatment and felt better Review of Systems Review of Systems: All systems reviewed & are unremarkable except as noted in Subjective Musculoskeletal: + back pain, + stiffness and + muscle weakness Physical Exam Constitutional: WD/WN, vitals as above no acute distress Neck: trachea midline, no thyromegaly Respiratory: normal respiratory effort, lungs clear to auscultation Cardiovascular: RRR, no murmur, no edema Gastrointestinal (Abdomen): normal bowel sounds, soft, nontender, no hepatosplenomegaly Musculoskeletal: no cyanosis or clubbing, extremities motor strength 5/5 Spine: + limited thoraco-lumbar ROM and + lumbar spinal tenderness Skin: no rashes, warm and dry Neurologic: patellar DTR's 2+ bilat, sensation intact and PERRL, EOMI, accommodation nl, no face palsy, no dysarthria Psychiatric: A+Ox3, euthymic affect Lymphatic: no cervical or axillary lymphadenopathy Results & Data Results & Data ([facility]) Vital Signs (Past 12 Hours) Vital Signs Temp Pulse Resp BP BP Pulse Ox 06/01/20 11:20 36.7 C 60 20 117/65 93 06/01/20 09:33 62 16 94 06/01/20 07:13 36.5 C 95 H 20 101/63 92 06/01/20 03:04 36.4 C L 63 18 95/56 L 98 Laboratory Results Laboratory Results - last 24 hr 05/31/20 05/31/20 06/01/20 16:44 20:27 05:37 WBC 4.47 L RBC 3.59 L Hgb 10.1 L Hct 31.3 L MCV 87.2 MCH 28.1 MCHC 32.3 RDW Std Deviation 46.7 H RDW Coeff of Lianne 14.8 H Plt Count 168 MPV 10.1 Immature Gran % (Auto) 0.7 Neut % (Auto) 70.2 Lymph % (Auto) 21.3 [place] % (Auto) 3.8 Eos % (Auto) 3.8 Baso % (Auto) 0.2 Neut # (Auto) 3.14 Lymph # (Auto) 0.95 L [place] # (Auto) 0.17 Eos # (Auto) 0.17 Baso # (Auto) 0.01 Immature Gran # (Auto) 0.03 H POC Glucose 170 H 182 H 06/01/20 06/01/20 07:18 11:26 WBC RBC Hgb Hct MCV MCH MCHC RDW Std Deviation RDW Coeff of Lianne Plt Count MPV Immature Gran % (Auto) Neut % (Auto) Lymph % (Auto) [place] % (Auto) Eos % (Auto) Baso % (Auto) Neut # (Auto) Lymph # (Auto) [place] # (Auto) Eos # (Auto) Baso # (Auto) Immature Gran # (Auto) POC Glucose 158 H 247 H Medications Administered Current Inpatient Medications Acetaminophen (Acetaminophen 325 Mg Tab) 650 mg PO Q4H PRN PRN Reason: Pain or Fever Stop: 06/28/20 00:18 Last Admin: 06/01/20 12:04 Dose: 650 mg Documented by: Hydrocodone Bitart/Acetaminophen (Hydrocodone/Acetaminophen 10/325 Tab) 0.5 tab PO Q8 PRN PRN Reason: Pain Stop: 06/12/20 10:50 Albuterol (Albuterol Hfa 8 Gm Inhaler) 2 puffs INH Q4H PRN PRN Reason: Wheezing Stop: 06/28/20 00:18 Last Admin: 06/01/20 09:32 Dose: 2 puffs Documented by: Allopurinol (Allopurinol 100 Mg Tab) 200 mg PO HS KIRSTEN Stop: 06/28/20 20:59 Last Admin: 05/31/20 19:57 Dose: 200 mg Documented by: Atorvastatin Calcium (Atorvastatin 40 Mg Tab) 40 mg PO HS [facility] Stop: 06/28/20 20:59 Last Admin: 05/31/20 19:58 Dose: 40 mg Documented by: Azithromycin (Azithromycin 250 Mg Tab) 250 mg PO MoWeFr@0900 KIRSTEN Stop: 06/30/20 08:59 Last Admin: 05/31/20 08:54 Dose: 250 mg Documented by: Bisacodyl (Bisacodyl 10 Mg Supp) 10 mg [place] DAILY PRN PRN Reason: Constipation Stop: 06/28/20 20:55 Dextrose (Dextrose 50% 50 Ml Syringe) 25 - 50 ml IV UD PRN; Protocol PRN Reason: Hypoglycemia Protocol Stop: 06/28/20 00:18 Finasteride (Finasteride 5 Mg Tab) 5 mg PO QAM [facility] Stop: 06/28/20 08:59 Last Admin: 06/01/20 07:56 Dose: 5 mg Documented by: Gabapentin (Gabapentin 600 Mg Tab) 600 mg PO BID [facility] Stop: 06/28/20 08:59 Last Admin: 06/01/20 07:56 Dose: 600 mg Documented by: Glucagon (Glucagon For Inj 1 Mg Vial) 1 mg SQ UD PRN; Protocol PRN Reason: Hypoglycemia Protocol Stop: 06/28/20 00:18 Glucose (Glucose 10 Tabs/Tube) 4 - 8 tabs PO UD PRN; Protocol PRN Reason: Hypoglycemia Protocol Stop: 06/28/20 00:18 Glucose (Glucose 40% Gel 15 Gm Tube) 15 - 30 gm PO UD PRN; Protocol PRN Reason: Hypoglycemia Protocol Stop: 06/28/20 00:18 Insulin Aspart (Insulin Aspart 100 Units/Ml 3 Ml Pen) 0 units SC ACHS [facility] Stop: 06/28/20 07:29 Last Admin: 06/01/20 12:07 Dose: 9 units Documented by: Insulin Glargine (Insulin Glargine Solostar 100 Units/Ml 3 Ml Pen) 20 units SC BID [facility] Stop: 06/28/20 08:59 Last Admin: 06/01/20 09:13 Dose: 20 units Documented by: Levetiracetam (Levetiracetam 500 Mg Tab) 1,000 mg PO BID KIRSTEN Stop: 06/28/20 08:59 Last Admin: 06/01/20 07:56 Dose: 1,000 mg Documented by: Miscellaneous (Carbohydrates For Hypoglycemia ) 15 - 30 gm PO UD PRN PRN Reason: Hypoglycemia Protocol Stop: 06/28/20 00:18 Nitroglycerin (Nitroglycerin Sl 0.4 Mg/Tab Tab) 0.4 mg SL UD PRN PRN Reason: Chest Pain Stop: 06/28/20 00:18 Ondansetron HCl (Ondansetron 4 Mg Od Tab) 4 mg PO Q8H PRN PRN Reason: Nausea Stop: 06/29/20 21:13 Last Admin: 05/30/20 21:58 Dose: 4 mg Documented by: Pantoprazole Sodium (Pantoprazole 40 Mg Tab) 40 mg PO QAM [facility] Stop: 06/28/20 13:44 Last Admin: 06/01/20 07:58 Dose: 40 mg Documented by: Polyethylene Glycol (Polyethylene (Miralax) 17 Gm Pack) 17 gm PO DAILY KIRSTEN Stop: 06/29/20 08:59 Last Admin: 06/01/20 07:57 Dose: 17 gm Documented by: Polyethylene Glycol (Polyethylene (Miralax) 17 Gm Pack) 17 gm PO DAILY PRN PRN Reason: Constipation Stop: 06/28/20 20:55 Last Admin: 05/29/20 21:08 Dose: 17 gm Documented by: Prednisone (Prednisone 1 Mg Tab) 6 mg PO QAM KIRSTEN Stop: 06/28/20 08:59 Last Admin: 06/01/20 07:57 Dose: 6 mg Documented by: Topiramate (Topiramate 100 Mg Tab) 100 mg PO BID KIRSTEN Stop: 06/28/20 08:59 Last Admin: 06/01/20 07:59 Dose: 100 mg Documented by: Trazodone HCl (Trazodone Hcl 50 Mg Tab) 50 mg PO HS PRN PRN Reason: Sleep Stop: 07/01/20 01:24 PG Care Time/CCT Total # of Minutes Spent Total Time Spent with Patient: Total time spent is greater than 50% in coordination of care (as documented) at patient's floor/unit and/or counseling patient: Coding Level of Care Code 11974 Subseq Hosp Care Lvl 2 Diagnoses Syncope R55 Syncope type: unspecified Acute head trauma S09.90XA Encounter type: initial encounter Lower back pain M54.5 Back pain laterality: midline Chronicity: acute Sciatica presence: without sciatica Seizure-like activity R56.9 Diabetes E11.42; Z79.4 Diabetes mellitus complication detail: with polyneuropathy Diabetes mellitus complication status: with neurologic complications Diabetes mellitus fci insulin use: with fci use Diabetes mellitus type: type 2 History of gastric bypass Z98.84 Chronic use of steroids Chronic kidney disease, stage 3a N18.3 CAD (coronary artery disease) I25.10 Associated angina: without angina Coronary Disease-Associated Artery/Lesion type: [place] artery [place] vs. transplanted heart: [place] heart 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; M35.9 Rheumatoid arthritis M06.9 Polymyositis M33.20 Migraine G43.909 DVT prophylaxis Z29.9 (1) Acute head trauma Encounter type: initial encounter Qualified Code(s): S09.90XA - Unspecified injury of head, initial encounter (2) Lower back pain Back pain laterality: midline Chronicity: acute Sciatica presence: without sciatica Qualified Code(s): M54.5 - Low back pain (3) Diabetes Diabetes mellitus complication detail: with polyneuropathy Diabetes mellitus complication status: with neurologic complications Diabetes mellitus fci insulin use: with fci use Diabetes mellitus type: type 2 Qualified Code(s): E11.42 - Type 2 diabetes mellitus with diabetic polyneuropathy; 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 transplanted heart: [place] heart Qualified Code(s): I25.10 - Atherosclerotic heart disease of [place] coronary artery without angina pectoris (5) Syncope Syncope type: unspecified Qualified Code(s): R55 - Syncope and collapse
[2020-06-01] MEDS ORDERED: HYDROmorphone INJ 0.5 MG/0.5 ML SYR IV PRN (16:10)
[2020-06-01] MEDS: allopurinoL 100 MG TAB PO SCH (20:29)
[2020-06-01] MEDS: ATORVASTATIN 40 MG TAB PO SCH (20:29)
[2020-06-01] MEDS: traZODone HCL 50 MG TAB PO PRN (20:30)
[2020-06-01] MEDS: traMADol HCL 50 MG TABLET PO PRN (20:30)
[2020-06-02] MEDS: FINASTERIDE 5 MG TAB PO SCH (07:35)
[2020-06-02] MEDS: GABAPENTIN 600 MG TAB PO SCH ×2 (07:35→20:58)
[2020-06-02] MEDS: predniSONE 1 MG TAB PO SCH (07:35)
[2020-06-02] MEDS: TOPIRAMATE 100 MG TAB PO SCH ×2 (07:35→20:58)
[2020-06-02] MEDS: levETIRAcetam 500 MG TAB PO SCH ×2 (07:35→20:58)
[2020-06-02] MEDS: POLYETHYLENE (MIRALAX) 17 GM PACK PO SCH (07:36)
[2020-06-02] MEDS: AZITHROMYCIN 250 MG TAB PO SCH (07:36)
[2020-06-02] MEDS: PANTOprazole 40 MG TAB PO SCH (07:36)
[2020-06-02] MEDS: ACETAMINOPHEN 325 MG TAB PO PRN (07:39)
[2020-06-02 08:02] LABS: Prothrombin Time 19.2 Seconds (9.0-12.0)
[2020-06-02] MEDS: INSULIN ASPART 100 UNITS/ML 3 ML PEN SC SCH ×4 (09:09→20:59)
[2020-06-02] MEDS: INSULIN GLARGINE SOLOSTAR 100 UNITS/ML 3 ML PEN SC SCH ×2 (09:10→21:00)
[2020-06-02] MEDS: traMADol HCL 50 MG TABLET PO PRN ×2 (12:55→21:07)
[2020-06-02] MEDS: allopurinoL 100 MG TAB PO SCH (20:58)
[2020-06-02] MEDS: ATORVASTATIN 40 MG TAB PO SCH (21:00)
[2020-06-02] MEDS: traZODone HCL 50 MG TAB PO PRN (21:07)
--- NOTE | 2020-06-02 22:39 | Hospitalist Progress Note ---
Date of Service June 02, 2020 Assessment & Plan (1) Syncope: 75 y/o M w/ hx of CAD (w/ stent), recurrent seizure-like activity, and episode of stroke-like symptoms (12/31/2019) who presents w/ mechanical fall and loss of consciousness likely 2/2 concussion from hitting his occiput. Stable. evaluated by Neurology, no further input Pt feels his falling over was from his legs giving out from his lumbar radiculopathy MRI lumbar spine with prior decompression L3-5 and he has foraminal narrowing, compression of L5 nerve root at L5/S1 Dr. Agarwal would recommend diagnostic L5 injection will hold Coumadin, INR 2.0 on 06/02 plan for Lovenox tomorrow, can continue this until he gets injection next week PT/OT evaluations - click scores are 19 for both PT/OT, he walked 16 feet with rolling walker he is motivated to get better, wants to go to [facility] No arrhythmia on telemetry dvt ppx: therapeutic Lovenox on 06/04 code: DNR/DNI (2) Acute head trauma: - monitor clinically for concussion symptoms he is alert and oriented no bleeding on CT head (3) Lower back pain: - chronic - now worsening symptoms, see MRI report continue PT/OT and set up for L5 injection - tylenol 650mg PO q4h prn for painplus prn Vicodin 5 mg p.o. q.8 add low dose Dilaudid for any breakthrought pain had some success with Ultram, use PRN (4) Seizure-like activity: - hx of multiple episodes in 2019. per neurology notes (both [facility] and [place]), had questioned if epileptic vs non epileptic. psychogenic had also been on differential - neg eegs in past - Follows Dr. Sheikh at [facility] and another neurologist at [place]. - has upcoming neuro appointment in May 2020 w/ plans to do 48 hour eeg - on large regimen of neurological medications, Keppra 1000 BID, topiramate 100 BID, and gabapentin 600 BID Neurology recommends continuing on his current medications, will sign off today (5) Diabetes: - home regimen per patient: 36u lantus BID. novolog SSI before meals and at bedtime - regimen during this admission: 20u lantus BID + SSI (correction factor 20, carb ratio 7). Weight based w/ chronic steroid use. 6 mg prednisone is low dose, consider decreasing insulin regimen slightly as needed. [facility] bsg monitor for hypoglycemia, no episodes today (6) History of gastric bypass: - avoid NSAIDs (7) Chronic use of steroids: - for RA, polymyositis, ILD - 6 month+ - no indication for stress dosing at this time. prednisone 6 mg a day (8) Chronic kidney disease, stage 3a: - hx R partial nephrectomy 1987 (9) CAD (coronary artery disease): - stent s/p occlusion of aortic aneurysm repair graft - 05/17/19 cardiac cath: patent L main stent. mild nonobstructive CAD. normally functioning mechanical AVR (10) Interstitial lung disease due to connective tissue disease: - home O2 2L at night only, every night (11) Rheumatoid arthritis: - chronic joint pains - continue home prednisone, chronic (12) Polymyositis: - continue daily prednisone (13) Migraine: - chronic, no current complaints - sees Dr. Andrea Underwood ([place] neuro), last saw last wk (14) DVT prophylaxis: INR 2.0 on 23 start on Lovenox 2/ Dr. Agarwal would recommend holding Coumadin for injection, this way he can continue Lovenox until injection next week then resume Coumadin Admission and Anticipated Discharge Date Admission Date: May 30, 2020 Subjective patient says pain is a little better with Tramadol he had a rash after a dose and Benadryl helped a lot he is eating well discussed plan, try to go to [facility], get in for L5 nerve root injection next week with Dr. Agarwal he is on board with plan PT today, walked 16 feet with rolling walker, shuffling gait Review of Systems Review of Systems: All systems reviewed & are unremarkable except as noted in Subjective Musculoskeletal: + back pain, + stiffness and + limited range of motion (lower back); no neck pain and no joint pain Physical Exam Constitutional: WD/WN, vitals as above no acute distress Neck: trachea midline, no thyromegaly Respiratory: normal respiratory effort, lungs clear to auscultation Cardiovascular: RRR, no murmur, no edema Gastrointestinal (Abdomen): normal bowel sounds, soft, nontender, no hepatosplenomegaly Musculoskeletal: no cyanosis or clubbing, extremities motor strength 5/5 Spine: + limited thoraco-lumbar ROM and + lumbar spinal tenderness Skin: no rashes, warm and dry Neurologic: patellar DTR's 2+ bilat, sensation intact and PERRL, EOMI, accommodation nl, no face palsy, no dysarthria Psychiatric: A+Ox3, euthymic affect Lymphatic: no cervical or axillary lymphadenopathy Results & Data Results & Data ([facility]) Vital Signs (Past 12 Hours) Vital Signs Temp Pulse Pulse Resp BP BP Pulse Ox 06/02/20 19:00 36.6 C 56 L 16 123/69 95 06/02/20 17:58 56 L 06/02/20 15:54 36.5 C 59 L 20 107/70 98 06/02/20 11:48 36.7 C 55 L 20 128/66 95 Laboratory Results Laboratory Results - last 24 hr 06/02/20 06/02/20 06/02/20 05:47 07:09 11:02 PT 19.2 H INR 2.0 H POC Glucose 159 H 228 H 06/02/20 06/02/20 16:34 20:38 PT INR POC Glucose 208 H 187 H Medications Administered Current Inpatient Medications Acetaminophen (Acetaminophen 325 Mg Tab) 650 mg PO Q4H PRN PRN Reason: mild pain Or Fever Stop: 06/28/20 00:18 Last Admin: 06/02/20 07:39 Dose: 650 mg Documented by: Albuterol (Albuterol Hfa 8 Gm Inhaler) 2 puffs INH Q4H PRN PRN Reason: Wheezing Stop: 06/28/20 00:18 Last Admin: 06/01/20 16:05 Dose: 2 puffs Documented by: Allopurinol (Allopurinol 100 Mg Tab) 200 mg PO [facility] Stop: 06/28/20 20:59 Last Admin: 06/02/20 20:58 Dose: 200 mg Documented by: Atorvastatin Calcium (Atorvastatin 40 Mg Tab) 40 mg PO [facility] Stop: 06/28/20 20:59 Last Admin: 06/02/20 21:00 Dose: Not Given Documented by: Azithromycin (Azithromycin 250 Mg Tab) 250 mg PO MoWeFr@0900 [facility] Stop: 06/30/20 08:59 Last Admin: 06/02/20 07:36 Dose: 250 mg Documented by: Bisacodyl (Bisacodyl 10 Mg Supp) 10 mg DE DAILY PRN PRN Reason: Constipation Stop: 06/28/20 20:55 Dextrose (Dextrose 50% 50 Ml Syringe) 25 - 50 ml IV UD PRN; Protocol PRN Reason: Hypoglycemia Protocol Stop: 06/28/20 00:18 Finasteride (Finasteride 5 Mg Tab) 5 mg PO QAM [facility] Stop: 06/28/20 08:59 Last Admin: 06/02/20 07:35 Dose: 5 mg Documented by: Gabapentin (Gabapentin 600 Mg Tab) 600 mg PO BID KIRSTEN Stop: 06/28/20 08:59 Last Admin: 06/02/20 20:58 Dose: 600 mg Documented by: Glucagon (Glucagon For Inj 1 Mg Vial) 1 mg SQ UD PRN; Protocol PRN Reason: Hypoglycemia Protocol Stop: 06/28/20 00:18 Glucose (Glucose 10 Tabs/Tube) 4 - 8 tabs PO UD PRN; Protocol PRN Reason: Hypoglycemia Protocol Stop: 06/28/20 00:18 Glucose (Glucose 40% Gel 15 Gm Tube) 15 - 30 gm PO UD PRN; Protocol PRN Reason: Hypoglycemia Protocol Stop: 06/28/20 00:18 Insulin Aspart (Insulin Aspart 100 Units/Ml 3 Ml Pen) 0 units SC ACHS [facility] Stop: 06/28/20 07:29 Last Admin: 06/02/20 20:59 Dose: 2 units Documented by: Insulin Glargine (Insulin Glargine Solostar 100 Units/Ml 3 Ml Pen) 20 units SC BID [facility] Stop: 06/28/20 08:59 Last Admin: 06/02/20 21:00 Dose: 20 units Documented by: Levetiracetam (Levetiracetam 500 Mg Tab) 1,000 mg PO BID KIRSTEN Stop: 06/28/20 08:59 Last Admin: 06/02/20 20:58 Dose: 1,000 mg Documented by: Miscellaneous (Carbohydrates For Hypoglycemia ) 15 - 30 gm PO UD PRN PRN Reason: Hypoglycemia Protocol Stop: 06/28/20 00:18 Nitroglycerin (Nitroglycerin Sl 0.4 Mg/Tab Tab) 0.4 mg SL UD PRN PRN Reason: Chest Pain Stop: 06/28/20 00:18 Ondansetron HCl (Ondansetron 4 Mg Od Tab) 4 mg PO Q8H PRN PRN Reason: Nausea Stop: 06/29/20 21:13 Last Admin: 05/30/20 21:58 Dose: 4 mg Documented by: Pantoprazole Sodium (Pantoprazole 40 Mg Tab) 40 mg PO QAM [facility] Stop: 06/28/20 13:44 Last Admin: 06/02/20 07:36 Dose: 40 mg Documented by: Polyethylene Glycol (Polyethylene (Miralax) 17 Gm Pack) 17 gm PO DAILY [facility] Stop: 06/29/20 08:59 Last Admin: 06/02/20 07:36 Dose: 17 gm Documented by: Polyethylene Glycol (Polyethylene (Miralax) 17 Gm Pack) 17 gm PO DAILY PRN PRN Reason: Constipation Stop: 06/28/20 20:55 Last Admin: 05/29/20 21:08 Dose: 17 gm Documented by: Prednisone (Prednisone 1 Mg Tab) 6 mg PO QAM [facility] Stop: 06/28/20 08:59 Last Admin: 06/02/20 07:35 Dose: 6 mg Documented by: Topiramate (Topiramate 100 Mg Tab) 100 mg PO BID [facility] Stop: 06/28/20 08:59 Last Admin: 06/02/20 20:58 Dose: 100 mg Documented by: Tramadol HCl (Tramadol Hcl 50 Mg Tablet) 50 mg PO Q8H PRN PRN Reason: Pain Stop: 07/01/20 19:39 Last Admin: 06/02/20 21:07 Dose: 50 mg Documented by: Trazodone HCl (Trazodone Hcl 50 Mg Tab) 50 mg PO HS PRN PRN Reason: Sleep Stop: 07/01/20 01:24 Last Admin: 06/02/20 21:07 Dose: 50 mg Documented by: PG Care Time/CCT Total # of Minutes Spent Total Time Spent with Patient: Total time spent is greater than 50% in coordination of care (as documented) at patient's floor/unit and/or counseling patient: Coding Level of Care Code 25157 Subseq Hosp Care Lvl 2 Diagnoses Syncope R55 Syncope type: unspecified Acute head trauma S09.90XA Encounter type: initial encounter Lower back pain M54.5 Back pain laterality: midline Chronicity: acute Sciatica presence: without sciatica Seizure-like activity R56.9 Diabetes E11.42; Z79.4 Diabetes mellitus complication detail: with polyneuropathy Diabetes mellitus complication status: with neurologic complications Diabetes mellitus 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 transplanted heart: [place] heart 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; M35.9 Rheumatoid arthritis M06.9 Polymyositis M33.20 Migraine G43.909 DVT prophylaxis Z29.9 (1) Acute head trauma Encounter type: initial encounter Qualified Code(s): S09.90XA - Unspecified injury of head, initial encounter (2) Lower back pain Back pain laterality: midline Chronicity: acute Sciatica presence: without sciatica Qualified Code(s): M54.5 - Low back pain (3) Diabetes Diabetes mellitus complication detail: with polyneuropathy Diabetes mellitus complication status: with neurologic complications Diabetes mellitus termite control representative insulin use: with termite control representative use Diabetes mellitus type: type 2 Qualified Code(s): E11.42 - Type 2 diabetes mellitus with diabetic polyneuropathy; 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 transplanted heart: [place] heart Qualified Cod e(s): I25.10 - Atherosclerotic heart disease of [place] coronary artery without angina pectoris (5) Syncope Syncope type: unspecified Qualified Code(s): R55 - Syncope and collapse
[2020-06-03] MEDS ORDERED: diphenhydrAMINE Capsule 25 MG CAP PO ONE (01:13)
[2020-06-03] MEDS: FINASTERIDE 5 MG TAB PO SCH (08:24)
[2020-06-03] MEDS: TOPIRAMATE 100 MG TAB PO SCH ×2 (08:24→20:37)
[2020-06-03] MEDS: PANTOprazole 40 MG TAB PO SCH (08:25)
[2020-06-03] MEDS: predniSONE 1 MG TAB PO SCH (08:25)
[2020-06-03] MEDS: POLYETHYLENE (MIRALAX) 17 GM PACK PO SCH (08:25)
[2020-06-03] MEDS: GABAPENTIN 600 MG TAB PO SCH ×2 (08:25→20:37)
[2020-06-03] MEDS: levETIRAcetam 500 MG TAB PO SCH ×2 (08:26→20:38)
[2020-06-03] MEDS: ACETAMINOPHEN 325 MG TAB PO PRN ×3 (08:27→20:42)
[2020-06-03] MEDS: INSULIN ASPART 100 UNITS/ML 3 ML PEN SC SCH ×4 (08:29→20:35)
[2020-06-03] MEDS: INSULIN GLARGINE SOLOSTAR 100 UNITS/ML 3 ML PEN SC SCH ×2 (08:30→20:37)
[2020-06-03] MEDS: ALBUTEROL HFA 8 GM INHALER INH PRN (11:51)
[2020-06-03] MEDS ORDERED: bisacodyL 5 MG TABEC PO ONE (18:12)
[2020-06-03] MEDS: allopurinoL 100 MG TAB PO SCH (20:37)
[2020-06-03] MEDS: ATORVASTATIN 40 MG TAB PO SCH (20:37)
[2020-06-04] MEDS: levETIRAcetam 500 MG TAB PO SCH ×2 (08:47→21:06)
[2020-06-04] MEDS: TOPIRAMATE 100 MG TAB PO SCH ×2 (08:47→21:06)
[2020-06-04] MEDS: POLYETHYLENE (MIRALAX) 17 GM PACK PO SCH (08:48)
[2020-06-04] MEDS: predniSONE 1 MG TAB PO SCH (08:48)
[2020-06-04] MEDS: FINASTERIDE 5 MG TAB PO SCH (08:48)
[2020-06-04] MEDS: PANTOprazole 40 MG TAB PO SCH (08:48)
[2020-06-04] MEDS: AZITHROMYCIN 250 MG TAB PO SCH (08:48)
[2020-06-04] MEDS: GABAPENTIN 600 MG TAB PO SCH ×2 (08:48→21:06)
[2020-06-04] MEDS: INSULIN GLARGINE SOLOSTAR 100 UNITS/ML 3 ML PEN SC SCH ×2 (08:49→21:21)
[2020-06-04] MEDS: INSULIN ASPART 100 UNITS/ML 3 ML PEN SC SCH ×4 (08:49→21:20)
[2020-06-04] MEDS: bisacodyL 10 MG SUPP PR PRN (08:56)
[2020-06-04 10:02] LABS: D Dimer 780 ug/L FEU (0-500)
[2020-06-04 10:45] LABS: INR 1.1 (0.9-1.1); Prothrombin Time 11.4 Seconds (9.0-12.0)
[2020-06-04] MEDS ORDERED: ENOXAPARIN INJ 120 MG/0.8 ML SYR SQ ONE (11:45)
--- NOTE | 2020-06-04 12:14 | Hospitalist Progress Note ---
Date of Service June 04, 2020 Assessment & Plan (1) Chest pain: 6 out of 10 pain/pressure at rest, across chest, down left arm relieved with Nitro x 2 troponin negative, CXR normal, EKG without ischemic changes BMP and CBC normal repeat troponin at midnight keep on bedrest tonight 324mg chewable aspirin given (2) Syncope: 75 y/o M w/ hx of CAD (w/ stent), recurrent seizure-like activity, and episode of stroke-like symptoms (12/31/2019) who presents w/ mechanical fall and loss of consciousness likely 2/2 concussion from hitting his occiput. Stable. evaluated by Neurology, no further input Pt feels his falling over was from his legs giving out from his lumbar radiculopathy MRI lumbar spine with prior decompression L3-5 and he has foraminal narrowing, compression of L5 nerve root at L5/S1 Dr. Agarwal would recommend diagnostic L5 injection will hold Coumadin, INR 1.1 today Lovenox 1mg/kg q12 until he can get injection PT/OT evaluations - click scores are 19 for both PT/OT, he walked 16 feet with rolling walker he is motivated to get better, wants to go to [facility] insurance will deny [facility], will plan to go to [facility] SNF will hold on transfer now that he had chest pain today No arrhythmia on telemetry dvt ppx: therapeutic Lovenox on 06/04 code: DNR/DNI (3) Acute head trauma: no signs of concussion he is alert and oriented no bleeding on CT head (4) Lower back pain: - chronic - now worsening symptoms, see MRI report continue PT/OT and set up for L5 injection - tylenol 650mg PO q4h prn for painplus prn he cannot tolerate oral narcotics (5) Seizure-like activity: - hx of multiple episodes in 2019. per neurology notes (both [facility] and [place]), had questioned if epileptic vs non epileptic. psychogenic had also been on differential - neg eegs in past - Follows Dr. Sheikh at [facility] and another neurologist at [place]. - has upcoming neuro appointment in May 2020 w/ plans to do 48 hour eeg - on large regimen of neurological medications, Keppra 1000 BID, topiramate 100 BID, and gabapentin 600 BID Neurology recommends continuing on his current medications, will sign off today (6) Diabetes: - home regimen per patient: 36u lantus BID. novolog SSI before meals and at bedtime - regimen during this admission: 20u lantus BID + SSI (correction factor 20, carb ratio 7). Weight based w/ chronic steroid use. 6 mg prednisone is low dose, consider decreasing insulin regimen slightly as needed. achs bsg monitor for hypoglycemia, no episodes today (7) History of gastric bypass: - avoid NSAIDs (8) Chronic use of steroids: - for RA, polymyositis, ILD - 6 month+ - no indication for stress dosing at this time. prednisone 6 mg a day (9) Chronic kidney disease, stage 3a: - hx R partial nephrectomy 1987 (10) CAD (coronary artery disease): - stent s/p occlusion of aortic aneurysm repair graft - 05/17/19 cardiac cath: patent L main stent. mild nonobstructive CAD. normally functioning mechanical AVR (11) Interstitial lung disease due to connective tissue disease: - home O2 2L at night only, every night (12) Rheumatoid arthritis: - chronic joint pains - continue home prednisone, chronic (13) Polymyositis: - continue daily prednisone (14) Migraine: - chronic, no current complaints - sees Dr. Andrea Underwood ([facility]), last saw last wk (15) DVT prophylaxis: INR 2.0 on 2/3 start on Lovenox 2/5 Dr. 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 Agarwal, his office is setting up a visit next week, will get authorization for injection and then proceed continue on Lovenox for full anticoagulation he is eating well he walked further today than yesterday, using walker still no BM despite Dulcolax laxative and suppository this evening had chest pain, EKG without obvious changes, CXR normal pain was 6 out of ten, across chest down left arm, no diaphoresis, no dyspnea relieved with Nitro x 2 doses gave him aspirin 324mg chewable troponin < 0.015, will repeat later tonight pain was down to 2/10, will have him stay on bedrest until tomorrow morning Review of Systems Review of Systems: All systems reviewed & are unremarkable except as noted in Subjective Constitutional: no fever, no chills, no sweats, no fatigue and no weakness Respiratory: no cough and no dyspnea Cardiovascular: + chest pain and + chest pain at rest; no dyspnea and no edema Gastrointestinal: + constipation Musculoskeletal: + back pain, + stiffness, + limited range of motion and + muscle weakness; no neck pain and no joint pain Physical Exam Constitutional: WD/WN, vitals as above no acute distress Neck: trachea midline, no thyromegaly Respiratory: normal respiratory effort, lungs clear to auscultation Cardiovascular: RRR, no murmur, no edema Gastrointestinal (Abdomen): normal bowel sounds, soft, nontender, no hepatosplenomegaly Musculoskeletal: no cyanosis or clubbing, extremities motor strength 5/5 Spine: + limited thoraco-lumbar ROM and + lumbar spinal tenderness Skin: no rashes, warm and dry Neurologic: patellar DTR's 2+ bilat, sensation intact and PERRL, EOMI, accommodation nl, no face palsy, no dysarthria Psychiatric: A+Ox3, euthymic affect Lymphatic: no cervical or axillary lymphadenopathy Results & Data Results & Data ([facility]) Vital Signs (Past 12 Hours) Vital Signs Temp Pulse Pulse Resp BP BP Pulse Ox 06/04/20 11:38 36.7 C 63 20 134/66 98 06/04/20 07:52 51 L 06/04/20 07:49 36.5 C 62 20 116/67 97 06/04/20 05:07 67 06/04/20 04:00 36.5 C 87 20 108/70 95 Laboratory Results Laboratory Results - last 24 hr 06/04/20 06/04/20 06/04/20 07:38 09:34 10:14 WBC RBC Hgb Hct MCV MCH MCHC RDW Std Deviation RDW Coeff of Lianne Plt Count MPV PT 11.4 Cancelled INR 1.1 Cancelled D-Dimer 780 H* Sodium Potassium Chloride Carbon Dioxide Anion Gap BUN Creatinine Est Cr Clr Drug Dosing Est GFR ( Amer) Est GFR (Non-Af Amer) BUN/Creatinine Ratio Glucose POC Glucose 166 H Calcium Total Bilirubin AST ALT Alkaline Phosphatase Troponin I Total Protein Albumin Globulin Albumin/Globulin Ratio 06/04/20 06/04/2006/04/21 11:26 16:50 18:38 WBC RBC Hgb Hct MCV MCH MCHC RDW Std Deviation RDW Coeff of Lianne Plt Count MPV PT INR D-Dimer Sodium 139 Potassium 4.1 Chloride 112 H Carbon Dioxide 21 Anion Gap 6.0 BUN 26 H Creatinine 1.23 Est Cr Clr Drug Dosing 65.3 Est GFR ( Amer) 66.1 Est GFR (Non-Af Amer) 57.1 BUN/Creatinine Ratio 21.2 H Glucose 248 H POC Glucose 271 H 244 H Calcium 8.5 Total Bilirubin 0.3 AST 24 ALT 39 Alkaline Phosphatase 80 Troponin I < 0.015 Total Protein 5.7 L Albumin 3.0 L Globulin 2.7 Albumin/Globulin Ratio 1.1 06/04/20 06/04/20 18:38 20:09 WBC 4.56 L RBC 3.57 L Hgb 10.2 L Hct 30.9 L MCV 86.6 MCH 28.6 MCHC 33.0 RDW Std Deviation 47.0 H RDW Coeff of Lianne 14.9 H Plt Count 183 MPV 10.0 PT INR D-Dimer Sodium Potassium Chloride Carbon Dioxide Anion Gap BUN Creatinine Est Cr Clr Drug Dosing Est GFR ( Amer) Est GFR (Non-Af Amer) BUN/Creatinine Ratio Glucose POC Glucose 229 H Calcium Total Bilirubin AST ALT Alkaline Phosphatase Troponin I Total Protein Albumin Globulin Albumin/Globulin Ratio Medications Administered Current Inpatient Medications Acetaminophen (Acetaminophen 325 Mg Tab) 650 mg PO Q4H PRN PRN Reason: mild pain Or Fever Stop: 06/28/20 00:18 Last Admin: 06/04/20 18:07 Dose: 650 mg Documented by: Albuterol (Albuterol Hfa 8 Gm Inhaler) 2 puffs INH Q4H PRN PRN Reason: Wheezing Stop: 06/28/20 00:18 Last Admin: 06/03/20 11:51 Dose: 2 puffs Documented by: Allopurinol (Allopurinol 100 Mg Tab) 200 mg PO [facility] Stop: 06/28/20 20:59 Last Admin: 06/04/20 21:05 Dose: 200 mg Documented by: Atorvastatin Calcium (Atorvastatin 40 Mg Tab) 40 mg PO [facility] Stop: 06/28/20 20:59 Last Admin: 06/04/20 21:06 Dose: 40 mg Documented by: Azithromycin (Azithromycin 250 Mg Tab) 250 mg PO MoWeFr@0900 KIRSTEN Stop: 06/30/20 08:59 Last Admin: 06/04/20 08:48 Dose: 250 mg Documented by: Bisacodyl (Bisacodyl 10 Mg Supp) 10 mg NM DAILY PRN PRN Reason: Constipation Stop: 06/28/20 20:55 Last Admin: 06/04/20 08:56 Dose: 10 mg Documented by: Dextrose (Dextrose 50% 50 Ml Syringe) 25 - 50 ml IV UD PRN; Protocol PRN Reason: Hypoglycemia Protocol Stop: 06/28/20 00:18 Enoxaparin Sodium (Enoxaparin Inj 120 Mg/0.8 Ml Syr) 111 mg SQ Q12H KIRSTEN Stop: 07/04/20 21:59 Last Admin: 06/04/20 21:09 Dose: 111 mg Documented by: Finasteride (Finasteride 5 Mg Tab) 5 mg PO QAM KIRSTEN Stop: 06/28/20 08:59 Last Admin: 06/04/20 08:48 Dose: 5 mg Documented by: Gabapentin (Gabapentin 600 Mg Tab) 600 mg PO BID KIRSTEN Stop: 06/28/20 08:59 Last Admin: 06/04/20 21:06 Dose: 600 mg Documented by: Glucagon (Glucagon For Inj 1 Mg Vial) 1 mg SQ UD PRN; Protocol PRN Reason: Hypoglycemia Protocol Stop: 06/28/20 00:18 Glucose (Glucose 10 Tabs/Tube) 4 - 8 tabs PO UD PRN; Protocol PRN Reason: Hypoglycemia Protocol Stop: 06/28/20 00:18 Glucose (Glucose 40% Gel 15 Gm Tube) 15 - 30 gm PO UD PRN; Protocol PRN Reason: Hypoglycemia Protocol Stop: 06/28/20 00:18 Insulin Aspart (Insulin Aspart 100 Units/Ml 3 Ml Pen) 0 units SC ACHS [facility] Stop: 06/28/20 07:29 Last Admin: 06/04/20 21:20 Dose: 4 units Documented by: Insulin Glargine (Insulin Glargine Solostar 100 Units/Ml 3 Ml Pen) 20 units SC BID [facility] Stop: 06/28/20 08:59 Last Admin: 06/04/20 21:21 Dose: 20 units Documented by: Levetiracetam (Levetiracetam 500 Mg Tab) 1,000 mg PO BID [facility] Stop: 06/28/20 08:59 Last Admin: 06/04/20 21:06 Dose: 1,000 mg Documented by: Miscellaneous (Carbohydrates For Hypoglycemia ) 15 - 30 gm PO UD PRN PRN Reason: Hypoglycemia Protocol Stop: 06/28/20 00:18 Nitroglycerin (Nitroglycerin Sl 0.4 Mg/Tab Tab) 0.4 mg SL UD PRN PRN Reason: Chest Pain Stop: 06/28/20 00:18 Last Admin: 06/04/20 19:49 Dose: 0.4 mg Documented by: Ondansetron HCl (Ondansetron 4 Mg Od Tab) 4 mg PO Q8H PRN PRN Reason: Nausea Stop: 06/29/20 21:13 Last Admin: 06/04/20 20:48 Dose: 4 mg Documented by: Pantoprazole Sodium (Pantoprazole 40 Mg Tab) 40 mg PO QAM [facility] Stop: 06/28/20 13:44 Last Admin: 06/04/20 08:48 Dose: 40 mg Documented by: Polyethylene Glycol (Polyethylene (Miralax) 17 Gm Pack) 17 gm PO DAILY KIRSTEN Stop: 06/29/20 08:59 Last Admin: 06/04/20 08:48 Dose: 17 gm Documented by: Polyethylene Glycol (Polyethylene (Miralax) 17 Gm Pack) 17 gm PO DAILY PRN PRN Reason: Constipation Stop: 06/28/20 20:55 Last Admin: 05/29/20 21:08 Dose: 17 gm Documented by: Prednisone (Prednisone 1 Mg Tab) 6 mg PO QAM [facility] Stop: 06/28/20 08:59 Last Admin: 06/04/20 08:48 Dose: 6 mg Documented by: Topiramate (Topiramate 100 Mg Tab) 100 mg PO BID [facility] Stop: 06/28/20 08:59 Last Admin: 06/04/20 21:06 Dose: 100 mg Documented by: Tramadol HCl (Tramadol Hcl 50 Mg Tablet) 50 mg PO Q8H PRN PRN Reason: Pain Stop: 07/01/20 19:39 Last Admin: 06/02/20 21:07 Dose: 50 mg Documented by: Trazodone HCl (Trazodone Hcl 50 Mg Tab) 50 mg PO HS PRN PRN Reason: Sleep Stop: 07/01/20 01:24 Last Admin: 06/02/20 21:07 Dose: 50 mg Documented by: PG Care Time/CCT Total # of Minutes Spent Total Time Spent: 40 Total Time Spent with Patient: Total time spent is greater than 50% in coordination of care (as documented) at patient's floor/unit and/or counseling patient: 15 minutes on phone with insurance, peer to peer [address] Agarwal, case management about plan 25 minutes on exam, chart review, documentation, formulating plan Coding Level of Care Code 31432 Subseq Hosp Care Lvl 3 Diagnoses Chest pain R07.9 Chest pain type: unspecified Syncope R55 Syncope type: unspecified Acute head trauma S09.90XA Encounter type: initial encounter Lower back pain M54.5 Back pain laterality: midline Chronicity: acute Sciatica presence: without sciatica Seizure-like activity R56.9 Diabetes E11.42; Z79.4 Diabetes mellitus complication detail: with polyneuropathy Diabetes mellitus complication status: with neurologic complications Diabetes mellitus shelter insulin use: with watermaster use Diabetes mellitus type: type 2 History of gastric bypass Z98.84 Chronic use of steroids Chronic kidney disease, stage 3a N18.3 CAD (coronary artery disease) I25.10 Associated angina: without angina Coronary Disease-Associated Artery/Lesion type: [place] artery [place] vs. transplanted heart: [place] heart 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; M35.9 Rheumatoid arthritis M06.9 Polymyositis M33.20 Migraine G43.909 DVT prophylaxis Z29.9 (1) Acute head trauma Encounter type: initial encounter Qualified Code(s): S09.90XA - Unspecified injury of head, initial encounter (2) Lower back pain Back pain laterality: midline Chronicity: acute Sciatica presence: without sciatica Qualified Code(s): M54.5 - Low back pain (3) Diabetes Diabetes mellitus complication detail: with polyneuropathy Diabetes mellitus complication status: with neurologic complications Diabetes mellitus watermaster insulin use: with watermaster use Diabetes mellitus type: type 2 Qualified Code(s): E11.42 - Type 2 diabetes mellitus with diabetic polyneuropathy; 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 transplanted heart: [place] heart Qualified Code(s): I25.10 - Atherosclerotic heart disease of [place] coronary artery without angina pectoris (5) Syncope Syncope type: unspecified Qualified Code(s): R55 - Syncope and collapse (6) Chest pain Chest pain type: unspecified Qualified Code(s): R07.9 - Chest pain, unspecified
[2020-06-04] MEDS: NITROGLYCERIN SL 0.4 MG/TAB TAB SL PRN ×3 (17:49→19:49)
[2020-06-04] MEDS ORDERED: ASPIRIN 81 MG CHEW PO ONE (18:06)
[2020-06-04] MEDS: ACETAMINOPHEN 325 MG TAB PO PRN (18:07)
--- NOTE | 2020-06-04 18:35 | XRay Report ---
XR chest 1V portable HISTORY: 75 years-old Male chest pain acute atypical chest pain COMPARISON: Chest radiograph 05/28/2020 TECHNIQUE: Portable AP view of the chest FINDINGS: Cardiac silhouette is enlarged. Prior median sternotomy. Mild interstitial coarsening. Surgical sutur e material projects over the left lung base. No pneumothorax, pleural effusion or overt pulmonary edvin ma. Partially imaged cervical spinal fusion hardware. Bones of the chest appear grossly intact. IMPRESSION: Cardiomegaly without acute process. ACT 112: Negative or not required by law. The above report was generated using voice recognition software. It may contain grammatical, syntax o r spelling errors. Electronically signed by: Terry Orozco M.D. 06/04/2020 6:33 PM
[2020-06-04 19:05] LABS: Hematocrit (blood only) 30.9 % (42-52); Hemoglobin 10.2 g/dL (14.0-18.0); Mean Corpuscular Hemoglobin 28.6 pg (25-34); Mean Corpuscular Volume 86.6 fL (80-100); Platelet Count 183 K/uL (130-400); RDW Coefficient of Variation 14.9 % (11.5-14.5); Red Blood Count 3.57 M/uL (4.7-6.1); White Blood Count 4.56 K/uL (4.8-10.8)
[2020-06-04 19:30] LABS: Alanine Aminotransferase 39 U/L (12-78); Aspartate Aminotransferase 24 U/L (15-37); BUN Creatinine Ratio 21.2 (10-20); Blood Urea Nitrogen 26 mg/dl (7-18); Calcium 8.5 mg/dl (8.5-10.1); Carbon Dioxide 21 mmol/L (21-32); Chloride 112 mmol/L (98-107); Creatinine Clr Calc Pharmacy 65.3 ml/min; Est GFR (African American) 66.1; Est GFR (Non-African American) 57.1; Glucose 248 mg/dl (70-99); Potassium 4.1 mmol/L (3.5-5.1); Sodium 139 mmol/L (136-145)
[2020-06-04 19:34] LABS: Albumin Globulin Ratio 1.1 (0.9-2); Alkaline Phosphatase 80 U/L (45-117); Bilirubin,Total 0.3 mg/dl (0.2-1); Globulin 2.7 gm/dl (2.5-4.0); Total Protein 5.7 gm/dl (6.4-8.2); Troponin I < 0.015 ng/ml (0-0.045)
[2020-06-04] MEDS: ONDANSETRON 4 MG OD TAB PO PRN (20:48)
[2020-06-04] MEDS: allopurinoL 100 MG TAB PO SCH (21:05)
[2020-06-04] MEDS: ATORVASTATIN 40 MG TAB PO SCH (21:06)
[2020-06-04] MEDS: ENOXAPARIN INJ 120 MG/0.8 ML SYR SQ SCH (21:09)
[2020-06-04] MEDS ORDERED: bisacodyL 5 MG TABEC PO ONE (21:30)
[2020-06-05] MEDS: NITROGLYCERIN SL 0.4 MG/TAB TAB SL PRN ×3 (08:14→17:32)
[2020-06-05] MEDS: ONDANSETRON 4 MG OD TAB PO PRN ×2 (08:14→17:23)
[2020-06-05] MEDS: ACETAMINOPHEN 325 MG TAB PO PRN (08:36)
[2020-06-05] MEDS: POLYETHYLENE (MIRALAX) 17 GM PACK PO SCH (08:39)
[2020-06-05] MEDS: ENOXAPARIN INJ 120 MG/0.8 ML SYR SQ SCH ×2 (08:41→19:39)
[2020-06-05] MEDS: levETIRAcetam 500 MG TAB PO SCH ×2 (08:41→19:36)
[2020-06-05] MEDS: GABAPENTIN 600 MG TAB PO SCH ×2 (08:42→19:40)
[2020-06-05] MEDS: TOPIRAMATE 100 MG TAB PO SCH ×2 (08:42→19:41)
[2020-06-05] MEDS: predniSONE 1 MG TAB PO SCH (08:42)
[2020-06-05] MEDS: FINASTERIDE 5 MG TAB PO SCH (08:42)
[2020-06-05] MEDS: PANTOprazole 40 MG TAB PO SCH (08:42)
[2020-06-05] MEDS: INSULIN ASPART 100 UNITS/ML 3 ML PEN SC SCH ×4 (08:43→20:00)
[2020-06-05] MEDS: INSULIN GLARGINE SOLOSTAR 100 UNITS/ML 3 ML PEN SC SCH ×2 (08:44→20:00)
[2020-06-05] MEDS: ASPIRIN 81 MG ECTAB PO SCH (10:56)
--- NOTE | 2020-06-05 11:27 | Hospitalist Progress Note ---
Date of Service June 05, 2020 Assessment & Plan (1) Chest pain: 6 out of 10 pain/pressure at rest, across chest, down left arm on 06/04 in the evening relieved with Nitro x 2 troponin negative, CXR normal, EKG without ischemic changes BMP and CBC normal repeat troponin at midnight also negative now with 5 out of 10 chest pain, relieved with nitro no relief with Tums EKG NSR with some subtle TW changes anterior leads troponin again negative ordered echo consult cardiology (2) Syncope: 75 y/o M w/ hx of CAD (w/ stent), recurrent seizure-like activity, and episode of stroke-like symptoms (12/31/2019) who presents w/ mechanical fall and loss of consciousness likely 2/2 concussion from hitting his occiput. Stable. evaluated by Neurology, no further input Pt feels his falling over was from his legs giving out from his lumbar radiculopathy MRI lumbar spine with prior decompression L3-5 and he has foraminal narrowing, compression of L5 nerve root at L5/S1 Dr. Agarwal would recommend diagnostic L5 injection will hold Coumadin, INR 1.1 today Lovenox 1mg/kg q12 until he can get injection PT/OT evaluations - click scores are 19 for both PT/OT, he walked 16 feet with rolling walker he is motivated to get better, wants to go to [facility] insurance will deny [facility], will plan to go to [facility] SNF will hold on transfer now that he had chest pain today No arrhythmia on telemetry dvt ppx: therapeutic Lovenox on 06/04 code: DNR/DNI (3) Acute head trauma: no signs of concussion he is alert and oriented no bleeding on CT head (4) Lower back pain: - chronic - now worsening symptoms, see MRI report continue PT/OT and set up for L5 injection - tylenol 650mg PO q4h prn for painplus prn he cannot tolerate oral narcotics (5) Seizure-like activity: - hx of multiple episodes in 2019. per neurology notes (both [facility] and [place]), had questioned if epileptic vs non epileptic. psychogenic had also been on differential - neg eegs in past - Follows Dr. Sheikh at [facility] and another neurologist at [place]. - has upcoming neuro appointment in May 2020 w/ plans to do 48 hour eeg - on large regimen of neurological medications, Keppra 1000 BID, topiramate 100 BID, and gabapentin 600 BID Neurology recommends continuing on his current medications, will sign off today (6) Diabetes: - home regimen per patient: 36u lantus BID. novolog SSI before meals and at bedtime - regimen during this admission: 20u lantus BID + SSI (correction factor 20, carb ratio 7). Weight based w/ chronic steroid use. 6 mg prednisone is low dose, consider decreasing insulin regimen slightly as needed. achs bsg monitor for hypoglycemia, no episodes today (7) History of gastric bypass: - avoid NSAIDs (8) Chronic use of steroids: - for RA, polymyositis, ILD - 6 month+ - no indication for stress dosing at this time. prednisone 6 mg a day (9) Chronic kidney disease, stage 3a: - hx R partial nephrectomy 1987 (10) CAD (coronary artery disease): - stent s/p occlusion of aortic aneurysm repair graft - 05/17/19 cardiac cath: patent L main stent. mild nonobstructive CAD. normally functioning mechanical AVR (11) Interstitial lung disease due to connective tissue disease: - home O2 2L at night only, every night (12) Rheumatoid arthritis: - chronic joint pains - continue home prednisone, chronic (13) Polymyositis: - continue daily prednisone (14) Migraine: - chronic, no current complaints - sees Dr. Andrea Underwood ([place] neuro), last saw last wk (15) DVT prophylaxis: INR 2.0 on 2/3 start on Lovenox 2/5 Dr. Agarwal would recommend holding Coumadin for injection, this way he can continue Lovenox until injection next week then resume Coumadin (16) Constipated: chronic issue, takes Relistor at home had son bring it in will give Relistor 145mcg daily starting today he tried Duloclax 10mg and suppository with no results Admission and Anticipated Discharge Date Admission Date: May 30, 2020 Subjective patient with chest pain and pressure again this morning, 6 out of 10 radiates down his left arm no diaphoresis, does have a little nausea and some shortness of breath relieved with SL Nitro EKG sinus with some TW inversions in anterior leads which is new troponin was negative last night at 6pm and at midnight, will repeat this morning, get echo will ask cardiology to evaluate he has not had a BM with two doses of Dulcolax 10mg and with suppository he uses Linzess at home which is non formulary, he can ask his son to bring into the front dest and I will order it for him hold on discharge with ongoing chest pain he has a h/o of CAD, last time he was cathed showed patent stent, no other severe disease Review of Systems Review of Systems: All systems reviewed & are unremarkable except as noted in Subjective Constitutional: + fatigue and + weakness; no fever, no chills and no sweats Respiratory: + dyspnea; no cough Cardiovascular: + chest pain, + chest pain at rest and + radiating jaw, neck o r arm pain (left arm); no palpitations, no syncope and no edema Gastrointestinal: + nausea and + constipation; no abdominal pain, no vomiting and no diarrhea/loose stools Physical Exam Constitutional: WD/WN, vitals as above no acute distress Neck: trachea midline, no thyromegaly Respiratory: normal respiratory effort, lungs clear to auscultation Cardiovascular: RRR, no murmur, no edema Gastrointestinal (Abdomen): normal bowel sounds, soft, nontender, no hepatosplenomegaly Musculoskeletal: no cyanosis or clubbing, extremities motor strength 5/5 Spine: + limited thoraco-lumbar ROM and + lumbar spinal tenderness Skin: no rashes, warm and dry Neurologic: patellar DTR's 2+ bilat, sensation intact and PERRL, EOMI, accommodation nl, no face palsy, no dysarthria Psychiatric: A+Ox3, euthymic affect Lymphatic: no cervical or axillary lymphadenopathy Results & Data Results & Data ([facility]) Vital Signs (Past 12 Hours) Vital Signs Temp Pulse Pulse Resp BP BP Pulse Ox 06/05/20 11:09 36.8 C 56 L 18 108/65 98 06/05/20 08:39 60 20 113/60 97 06/05/20 08:25 57 L 18 91/56 L 94 06/05/20 08:13 52 L 116/68 98 06/05/20 07:46 36.7 C 67 18 122/72 97 06/05/20 07:00 74 06/05/20 04:00 36.4 C L 89 18 110/62 96 PG Care Time/CCT Total # of Minutes Spent Total Time Spent with Patient: Total time spent is greater than 50% in coordination of care (as documented) at patient's floor/unit and/or counseling patient: Coding Level of Care Code 56996 Subseq Hosp Care Lvl 2 Diagnoses Chest pain R07.9 Chest pain type: unspecified Syncope R55 Syncope type: unspecified Acute head trauma S09.90XA Encounter type: initial encounter Lower back pain M54.5 Back pain laterality: midline Chronicity: acute Sciatica presence: without sciatica Seizure-like activity R56.9 Diabetes E11.42; Z79.4 Diabetes mellitus complication detail: with polyneuropathy Diabetes mellitus complication status: with neurologic complications Diabetes mellitus intermediate manager insulin use: with jail use Diabetes mellitus type: type 2 History of gastric bypass Z98.84 Chronic use of steroids Chronic kidney disease, stage 3a N18.3 CAD (coronary artery disease) I25.10 Associated angina: without angina Coronary Disease-Associated Artery/Lesion type: [place] artery [place] vs. transplanted heart: [place] heart 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; M35.9 Rheumatoid arthritis M06.9 Polymyositis M33.20 Migraine G43.909 DVT prophylaxis Z29.9 Constipated K59.00 (1) Acute head trauma Encounter type: initial encounter Qualified Code(s): S09.90XA - Unspecified injury of head, initial encounter (2) Lower back pain Back pain laterality: midline Chronicity: acute Sciatica presence: without sciatica Qualified Code(s): M54.5 - Low back pain (3) Diabetes Diabetes mellitus complication detail: with polyneuropathy Diabetes mellitus complication status: with neurologic complications Diabetes mellitus intermediate manager insulin use: with intermediate manager use Diabetes mellitus type: type 2 Qualified Code(s): E11.42 - Type 2 diabetes mellitus with diabetic polyneuropathy; 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 transplanted heart: [place] heart Qualified Code(s): I25.10 - Atherosclerotic heart disease of [place] coronary artery without angina pectoris (5) Syncope Syncope type: unspecified Qualified Code(s): R55 - Syncope and collapse (6) Chest pain Chest pain type: unspecified Qualified Code(s): R07.9 - Chest pain, unspecified
--- NOTE | 2020-06-05 14:02 | XCELERA ---
[id number] \\[id number]
[2020-06-05] MEDS ORDERED: CALCIUM CARBONATE 500 MG CHEWABLE TAB PO PRN (14:14)
[2020-06-05] MEDS: LINACLOTIDE 145 MCG CAPSULE PO SCH (17:18)
[2020-06-05] MEDS: ATORVASTATIN 40 MG TAB PO SCH (19:38)
[2020-06-05] MEDS: allopurinoL 100 MG TAB PO SCH (19:41)
[2020-06-05] MEDS: POLYETHYLENE (MIRALAX) 17 GM PACK PO PRN (20:03)
[2020-06-06] MEDS: LINACLOTIDE 145 MCG CAPSULE PO SCH (05:32)
[2020-06-06] MEDS: ONDANSETRON 4 MG OD TAB PO PRN (08:12)
[2020-06-06] MEDS: GABAPENTIN 600 MG TAB PO SCH ×2 (08:15→20:59)
[2020-06-06] MEDS: POLYETHYLENE (MIRALAX) 17 GM PACK PO SCH (08:15)
[2020-06-06] MEDS: predniSONE 1 MG TAB PO SCH (08:15)
[2020-06-06] MEDS: ASPIRIN 81 MG ECTAB PO SCH (08:15)
[2020-06-06] MEDS: PANTOprazole 40 MG TAB PO SCH (08:15)
[2020-06-06] MEDS: FINASTERIDE 5 MG TAB PO SCH (08:15)
[2020-06-06] MEDS: ENOXAPARIN INJ 120 MG/0.8 ML SYR SQ SCH ×2 (08:16→21:02)
[2020-06-06] MEDS: bisacodyL 10 MG SUPP PR PRN (08:17)
[2020-06-06] MEDS: levETIRAcetam 500 MG TAB PO SCH ×2 (08:17→21:00)
[2020-06-06] MEDS: TOPIRAMATE 100 MG TAB PO SCH ×2 (08:17→21:00)
[2020-06-06] MEDS: INSULIN GLARGINE SOLOSTAR 100 UNITS/ML 3 ML PEN SC SCH ×2 (08:20→20:57)
[2020-06-06] MEDS: INSULIN ASPART 100 UNITS/ML 3 ML PEN SC SCH ×4 (08:21→20:57)
--- NOTE | 2020-06-06 09:12 | Cardiology Consultation ---
Date of Consultation June 06, 2020 Assessment & Plan (1) Chest pain: He describes intermittent chest discomfort which is somewhat prolonged, not exertional and has been present historically with several evaluations including catheterizations without any progressive disease identified. Here he had a somewhat prolonged episode (at least an hour or more) with negative enzymes and only minor nonspecific ST-T abnormalities. No wall motion abnormalities on echocardiography. Although he has had coronary disease identified in the past I would not pursue further evaluation at this time. (2) CAD (coronary artery disease): His records indicate that he does have coronary disease and has had a left main stent placed in the past but he has had several catheterizations since with no progression of disease. His symptoms are atypical and enzymes are negative and therefore I would not pursue evaluation for progression at this time. (3) History of aortic valve replacement: He has had an aortic valve replacement which by his description occurred in 2003, it is evidently a mechanical valve although the echocardiogram evidently did not visualize it well. It does not have high gradients on echocardiography, on exam he does have metallic valve sounds and the valve appears to be functioning normally. I would not pursue further evaluation. History of Present Illness Reason for Consultation: Chest pain Attending Physician: Russell Ram DO History of Present Illness This is a 75-year-old male with a history of diabetes mellitus, chronic kidney disease, gastric bypass surgery, coronary artery disease as well as a mechanical aortic valve replacement. He also has an aortic aneurysm repair. Presenting with loss of consciousness. He does have a history of recurrent falls and possible syncope, he has had an extensive neurologic evaluation in the past with a diagnosis of a seizure disorder or psychogenic nonepileptic seizures. He has been evaluated by seizure specialist at [place]. He also has a history of migraines, diabetic peripheral neuropathy and he has been treated with Keppra. His current presentation is felt to be consistent with a mechanical fall and loss of consciousness secondary to hitting his head. His most recent catheterization May 17, 2019 through [facility]. That report is available in his records, that history describes a history of a mechanical AVR and a history of left main stenting prior to that. Apparently in May 2018 he presented with troponins in the 30 range and catheterization showed a patent left main stent and nonobstructive coronary disease. His repeat catheterization May 17, 2019 showed similar findings. On June 04, 2020 he described 6 out of 10 chest pain with radiation to his left arm. That continued. Evaluation included serial troponins which were no rmal, electrocardiograms which showed some minor anterior T wave abnormalities on today's electrocardiogram and an echocardiogram done June 05, 2020 showing normal left ventricular size and function with no regional wall motion abnormalities, mild aortic regurgitation and mild to moderate mitral regurgitation. No mention is made of a mechanical valve. He normally is maintained on warfarin anticoagulation which is currently on hold and he is on Lovenox. Allergies Allergy/AdvReac Type Severity Reaction Status Date / Time Iodinated Contrast Media Allergy Severe Anaphylaxis Verified 05/28/20 18:57 shellfish derived Allergy Severe Anaphylaxis Verified 05/28/20 18:57 Tetanus Vaccines and Toxoid Allergy Unknown Unknown Verified 05/28/20 18:57 Home Medications Medication Instructions Recorded Confirmed Type Trulicity 1.5 mg SUBCUT SA 01/20/20 05/28/20 History albuterol sulfate [Ventolin HFA] 2 puff INHALATION Q4H PRN 01/20/20 05/28/20 History allopurinol 200 mg PO HS 01/20/20 05/28/20 History azithromycin 250 mg PO .MOWEFR@QAM 01/20/20 05/28/20 History cholecalciferol (vitamin D3) 2,000 unit PO HS 01/20/20 05/28/20 History [Vitamin D3] finasteride 5 mg PO QAM 01/20/20 05/28/20 History insulin aspart U-100 See Rx Instructions .ROUTE .COMPLEX 01/20/20 05/28/20 History ipratropium-albuterol 3 ml INHALATION QID PRN 01/20/20 05/28/20 History nitroglycerin 0.4 mg SUBLINGUAL DIRECTED PRN 01/20/20 05/28/20 History torsemide 20 mg PO QAM 01/20/20 05/28/20 History trazodone 50 mg PO HS PRN 01/20/20 05/28/20 History rmqptho-nsabarvzi-qaec 1 tab PO HS 02/05/20 05/28/20 History warfarin 7.5 mg PO HS 03/02/20 05/28/20 History Linzess 145 mcg PO QAM #30 cap 03/12/20 05/28/20 Rx gabapentin 600 mg tablet 600 mg PO BID tab 04/02/20 05/28/20 History levetiracetam 1,000 mg tablet 1,000 mg PO BID 90 Days #180 tab 04/02/20 05/28/20 Rx topiramate 100 mg tablet 100 mg PO BID 30 Days #60 tab 05/17/20 05/28/20 Rx atorvastatin 40 mg PO HS 05/28/20 05/28/20 History insulin glargine [Lantus Solostar 50 unit SUBCUT BID 05/28/20 05/28/20 History U-100 Insulin] prednisone 6 mg PO QAM 05/28/20 05/28/20 History Patient History Medical History CAD (coronary artery disease) Dehydration Diabetes HLD (hyperlipidemia) Interstitial lung disease Interstitial lung disease due to connective tissue disease Lung nodule Polymyositis Polymyositis Prostate cancer s/p XRT Rheumatoid arthritis Seizure-like activity Stroke-like symptom 12/2019, w/ blurry vision and dysarthria. mild R sided wkness. attending outpatient physical therapy w/ good improvement in strength (5+/5 strength of all 4 extremities as of 05/28/20) Thoracic ascending aortic aneurysm s/p repair Surgical History H/O hernia repair History of aortic valve replacement mechanical History of cholecystectomy History of fusion of cervical spine History of gastric bypass lap band History of heart artery stent History of lung biopsy 2019 History of partial nephrectomy Family History Other Coronary heart disease Rheumatoid arthritis Stroke Social History Smoking Status: Never smoker Second Hand Exposure: No; Hx Alcohol Use: No Hx Substance Use: No Preferred Language: Lebanese Communication Ability: Effective Hearing Ability: Hard of Hearing Tongue Carrier Required: No Beliefs That Will Affect Care: None marital status: / Current Living Situation: Family Current Living Situation Comment: son Feels Safe at Home: Yes Safety Concerns: Feels Safe At This Time Assistive Devices: Glasses, Oxygen - at Night and Wheelchair Review of Systems Review of Systems: All systems reviewed & are unremarkable except as noted in HPI & below Physical Exam Physical Exam: Constitutional: Alert, cooperative and in no distress. HEENT: Unremarkable Neck: No jugular venous distention, carotid pulses are normal and equal bilaterally without bruits. Pulmonary: Clear to auscultation bilaterally. Cardiac: Regular rhythm with good prosthetic valve sounds (mechanical) and a grade 2/6 holosystolic murmur at the apex, no gallop or rub. Abdomen: Soft, nontender with normal bowel sounds. Extremities: No edema. Distal pulses intact. Neurologic: No focal findings. Gait is steady. Skin: No rash, ecchymoses or petechiae. He has a midsternal thoracotomy scar. Results & Data ([facility]) Vital Signs (Past 12 Hours) Vital Signs Temp Pulse Pulse Resp BP BP Pulse Ox 06/06/20 07:10 36.4 C L 72 20 142/63 H 97 06/06/20 07:00 58 L 06/06/20 03:02 36.3 C L 56 L 18 107/63 96 06/05/20 23:29 72 06/05/20 22:53 36.3 C L 79 18 122/63 97 Laboratory Results Cardiac Enzymes 06/05/20 Range/Units 12:13 Troponin I < 0.015 (0-0.045) ng/ml Intake and Output 06/05/20 06/06/20 06/06/20 22:59 06:59 14:59 Intake Total 675 / 975 300 / 975 Output Total 675 / 975 300 / 975 Balance 0 / 0 0 / 0 Intake: Oral 675 / 975 300 / 975 Output: Urine 675 / 975 300 / 975 Other: # Unmeasured Voids 1 Weight 112.2 kg Weight Measurement Method Standing Scale Diagnostic Findings Electrocardiogram: This morning's electrocardiogram shows sinus bradycardia with premature atrial beats, average rate 53 bpm. He does have anterolateral T wave abnormalities, anterior T wave abnormalities were not present on yesterday's ECG. Telemetry: Sinus bradycardia and sinus rhythm with premature atrial beats, rate 60 to 80 bpm PG Care Time/CCT Total # of Minutes Spent Total Time Spent with Patient: Total time spent is greater than 50% in coordination of care (as documented) at patient's floor/unit and/or counseling patient: Coding Level of Care Code 81329 Initial Inpt Care Lvl 3 Diagnoses Chest pain R07.2 Chest pain type: precordial pain CAD (coronary artery disease) I25.10 Associated angina: without angina Coronary Disease-Associated Artery/Lesion type: ute artery [place] vs. transplanted heart: ute heart History of aortic valve replacement Z95.2 (1) CAD (coronary artery disease) Associated angina: without angina Coronary Disease-Associated Artery/Lesion type: ute artery [place] vs. transplanted heart: ute heart Qualified Code(s): I25.10 - Atherosclerotic heart disease of ute coronary artery without angina pectoris (2) Chest pain Chest pain type: precordial pain Qualified Code(s): R07.2 - Precordial pain
--- NOTE | 2020-06-06 11:02 | Electrocardiogram Report ---
Test Reason : Blood Pressure : / mmHG Vent. Rate : 066 BPM Atrial Rate : 066 BPM P-R Int : 152 ms QRS Dur : 084 ms QT Int : 422 ms P-R-T Axes : 032 036 114 degrees QTc Int : 442 ms Sinus rhythm with Premature atrial complexes Nonspecific T wave abnormality Abnormal ECG When compared with ECG of 28-MAY-2020 15:19, No significant change was found Confirmed by Shahid Cross ([id number]) on 06/06/2020 11:01:39 AM Referred By: REFERRED SELF Confirmed By:Shahid Cross
[2020-06-06] MEDS: ACETAMINOPHEN 325 MG TAB PO PRN (11:06)
--- NOTE | 2020-06-06 11:18 | Electrocardiogram Report ---
Test Reason : Blood Pressure : / mmHG Vent. Rate : 053 BPM Atrial Rate : 053 BPM P-R Int : 130 ms QRS Dur : 084 ms QT Int : 452 ms P-R-T Axes : 025 017 122 degrees QTc Int : 424 ms Sinus bradycardia with Premature atrial complexes Nonspecific ST and T wave abnormality Abnormal ECG When compared with ECG of 04-JUN-2020 18:04, (unconfirmed) T wave inversion now evident in Anterior leads Confirmed by Shahid Cross ([id number]) on 06/06/2020 11:18:38 AM Referred By: REFERRED SELF Confirmed By:Shahid Cross
--- NOTE | 2020-06-06 15:15 | Hospitalist Progress Note ---
Date of Service June 06, 2020 Assessment & Plan (1) Chest pain: 6 out of 10 pain/pressure at rest, across chest, down left arm on 06/04 in the evening relieved with Nitro x 2 troponin negative, CXR normal, EKG without ischemic changes BMP and CBC normal repeat troponin at midnight also negative repeat 5 out of 10 chest pain on 06/05, relieved with nitro no relief with Tums EKG NSR with some subtle TW changes anterior leads troponin again negative ordered echo - no wall motion abnormalities consult cardiology - no further work up less chest pain today (2) Syncope: 75 y/o M w/ hx of CAD (w/ stent), recurrent seizure-like activity, and episode of stroke-like symptoms (12/31/2019) who presents w/ mechanical fall and loss of consciousness likely 2/2 concussion from hitting his occiput. Stable. evaluated by Neurology, no further input Pt feels his falling over was from his legs giving out from his lumbar radiculopathy MRI lumbar spine with prior decompression L3-5 and he has foraminal narrowing, compression of L5 nerve root at L5/S1 Dr. Agarwal would recommend diagnostic L5 injection will hold Coumadin Lovenox 1mg/kg q12 until he can get injection PT/OT evaluations - click scores are 19 for both PT/OT, he walked 16 feet with rolling walker he is motivated to get better, wants to go to [facility] insurance will deny [facility], will plan to go to [facility] will hold on transfer now that he had chest pain over the weekend plan is to be discharged to [facility] tomorrow they will transport him to Dr. Agarwal's office this week for visit with pain management he will need to return for 2nd visit for the actual L5 nerve root injection once they get insurance authorization have CM check with [facility] about timing of first visit he would like to try to go home, his son is reluctant to take him home due to his weakness and recent falls recommend he get evaluated by PT and OT tomorrow morning to see if he is stronger likely he will need to go to SNF (3) Acute head trauma: no signs of concussion he is alert and oriented no bleeding on CT head (4) Lower back pain: - chronic - now worsening symptoms, see MRI report continue PT/OT and set up for L5 injection with Dr. Agarwal, see above for plan after discharge - tylenol 650mg PO q4h prn for painplus prn he cannot tolerate oral narcotics (5) Seizure-like activity: - hx of multiple episodes in 2019. per neurology notes (both [facility] and [place]), had questioned if epileptic vs non epileptic. psychogenic had also been on differential - neg eegs in past - Follows Dr. Sheikh at [facility] and another neurologist at [place]. - has upcoming neuro appointment in May 2020 w/ plans to do 48 hour eeg - on large regimen of neurological medications, Keppra 1000 BID, topiramate 100 BID, and gabapentin 600 BID Neurology recommends continuing on his current medications, will sign off today (6) Diabetes: - home regimen per patient: 36u lantus BID. novolog SSI before meals and at bedtime - regimen during this admission: 20u lantus BID + SSI (correction factor 20, carb ratio 7). Weight based w/ chronic steroid use. 6 mg prednisone is low dose, consider decreasing insulin regimen slightly as needed. achs bsg monitor for hypoglycemia, no episodes today (7) History of gastric bypass: - avoid NSAIDs (8) Chronic use of steroids: - for RA, polymyositis, ILD - 6 month+ - no indication for stress dosing at this time. prednisone 6 mg a day (9) Chronic kidney disease, stage 3a: - hx R partial nephrectomy 1987 (10) CAD (coronary artery disease): - stent s/p occlusion of aortic aneurysm repair graft - 05/17/19 cardiac cath: patent L main stent. mild nonobstructive CAD. normally functioning mechanical AVR (11) Interstitial lung disease due to connective tissue disease: - home O2 2L at night only, every night (12) Rheumatoid arthritis: - chronic joint pains - continue home prednisone, chronic (13) Polymyositis: - continue daily prednisone (14) Migraine: - chronic, no current complaints - sees Dr. Andrea Underwood ([place] neuro), last saw last wk (15) DVT prophylaxis: start on Lovenox 06/04 Dr. Agarwal would recommend holding Coumadin for injection, this way he can continue Lovenox until injection next week then resume Coumadin (16) Constipated: chronic issue, takes Relistor at home had son bring it in will give Relistor 145mcg daily small BM on 06/06 in the morning, feels like he still needs to move them he tried Duloclax 10mg and suppository with no results Admission and Anticipated Discharge Date Admission Date: May 30, 2020 Anticipated date of discharge: 06/07/20 Subjective patient doing okay today, says he has a little chest pain but not as intense very small BM this morning after using Relistor, feels like he still has more to move less back pain today he is making urine not much of an appetite, says he has not eaten much since Sunday, feels like he is full, needs to have a good BM he is not thrilled about going to [place] tomorrow he does not like the idea of riding in wheelchair van [address] making the trip twice in the next 2 weeks he is trying to convince his son to come home suggest we get him to see PT again tomorrow, see how he does, if he is strong enough to get home son could then take him to appointments at [facility] appreciate cardiology consult, no concerns that chest pain is ACS, has had numerous works ups including cath in the past for chest pain, stable findings Review of Systems Review of Systems: All systems reviewed & are unremarkable except as noted in Subjective Constitutional: + fatigue and + weakness; no fever Respiratory: no cough and no dyspnea Cardiovascular: + chest pain (subtle) and + chest pain at rest; no dyspnea, no dyspnea on exertion, no palpitations and no syncope Gastrointestinal: + bloating and + constipation (very small BM today, taking Relistor); no abdominal pain, no nausea, no vomiting and no diarrhea/loose stools Musculoskeletal: + back pain Physical Exam Constitutional: WD/WN, vitals as above no acute distress Neck: trachea midline, no thyromegaly Respiratory: normal respiratory effort, lungs clear to auscultation Cardiovascular: RRR, no murmur, no edema Gastrointestinal (Abdomen): normal bowel sounds, soft, nontender, no hepatosplenomegaly Musculoskeletal: no cyanosis or clubbing, extremities motor strength 5/5 Spine: + limited thoraco-lumbar ROM and + lumbar spinal tenderness Skin: no rashes, warm and dry Neurologic: patellar DTR's 2+ bilat, sensation intact and PERRL, EOMI, accommodation nl, no face palsy, no dysarthria Psychiatric: A+Ox3, euthymic affect Lymphatic: no cervical or axillary lymphadenopathy Results & Data Results & Data ([facility]) Vital Signs (Past 12 Hours) Vital Signs Temp Pulse Pulse Resp BP Pulse Ox 06/06/20 11:34 36.6 C 60 16 106/65 98 06/06/20 07:10 36.4 C L 72 20 142/63 H 97 06/06/20 07:00 58 L Laboratory Results Laboratory Results - last 24 hr 06/05/20 06/05/20 06/06/20 16:25 19:44 07:25 POC Glucose 211 H 205 H 125 H 06/06/20 11:29 POC Glucose 190 H Medications Administered Current Inpatient Medications Acetaminophen (Acetaminophen 325 Mg Tab) 650 mg PO Q4H PRN PRN Reason: mild pain Or Fever Stop: 06/28/20 00:18 Last Admin: 06/06/20 11:06 Dose: 650 mg Documented by: Albuterol (Albuterol Hfa 8 Gm Inhaler) 2 puffs INH Q4H PRN PRN Reason: Wheezing Stop: 06/28/20 00:18 Last Admin: 06/03/20 11:51 Dose: 2 puffs Documented by: Allopurinol (Allopurinol 100 Mg Tab) [address] [facility] Stop: 06/28/20 20:59 Last Admin: 06/05/20 19:41 Dose: 200 mg Documented by: Aspirin (Aspirin 81 Mg Ectab) 81 mg PO QAM [facility] Stop: 07/05/20 08:59 Last Admin: 06/06/20 08:15 Dose: 81 mg Documented by: Atorvastatin Calcium (Atorvastatin 40 Mg Tab) [address] [facility] Stop: 06/28/20 20:59 Last Admin: 06/05/20 19:38 Dose: 40 mg Documented by: Azithromycin (Azithromycin 250 Mg Tab) 250 mg PO MoWeFr@0900 [facility] Stop: 06/30/20 08:59 Last Admin: 06/04/20 08:48 Dose: 250 mg Documented by: Bisacodyl (Bisacodyl 10 Mg Supp) 10 mg NV DAILY PRN PRN Reason: Constipation Stop: 06/28/20 20:55 Last Admin: 06/06/20 08:17 Dose: 10 mg Documented by: Calcium Carbonate (Calcium Carbonate 500 Mg Chewable Tab) 500 mg PO Q6 PRN PRN Reason: Indigestion Stop: 07/05/20 14:13 Last Admin: 06/05/20 14:33 Dose: 500 mg Documented by: Dextrose (Dextrose 50% 50 Ml Syringe) 25 - 50 ml IV UD PRN; Protocol PRN Reason: Hypoglycemia Protocol Stop: 06/28/20 00:18 Enoxaparin Sodium (Enoxaparin Inj 120 Mg/0.8 Ml Syr) 111 mg SQ Q12H KIRSTEN Stop: 07/04/20 21:59 Last Admin: 06/06/20 08:16 Dose: 111 mg Documented by: Finasteride (Finasteride 5 Mg Tab) 5 mg PO QAM KIRSTEN Stop: 06/28/20 08:59 Last Admin: 06/06/20 08:15 Dose: 5 mg Documented by: Gabapentin (Gabapentin 600 Mg Tab) 600 mg PO BID [facility] Stop: 06/28/20 08:59 Last Admin: 06/06/20 08:15 Dose: 600 mg Documented by: Glucagon (Glucagon For Inj 1 Mg Vial) 1 mg SQ UD PRN; Protocol PRN Reason: Hypoglycemia Protocol Stop: 06/28/20 00:18 Glucose (Glucose 10 Tabs/Tube) 4 - 8 tabs PO UD PRN; Protocol PRN Reason: Hypoglycemia Protocol Stop: 06/28/20 00:18 Glucose (Glucose 40% Gel 15 Gm Tube) 15 - 30 gm PO UD PRN; Protocol PRN Reason: Hypoglycemia Protocol Stop: 06/28/20 00:18 Insulin Aspart (Insulin Aspart 100 Units/Ml 3 Ml Pen) 0 units SC ACHS [facility] Stop: 06/28/20 07:29 Last Admin: 06/06/20 12:08 Dose: 3 units Documented by: Insulin Glargine (Insulin Glargine Solostar 100 Units/Ml 3 Ml Pen) 20 units SC BID [facility] Stop: 06/28/20 08:59 Last Admin: 06/06/20 08:20 Dose: 20 units Documented by: Levetiracetam (Levetiracetam 500 Mg Tab) 1,000 mg PO BID [facility] Stop: 06/28/20 08:59 Last Admin: 06/06/20 08:17 Dose: 1,000 mg Documented by: Linaclotide (Linaclotide 145 Mcg Capsule) 145 mcg PO DAILYBB [facility] Stop: 07/05/20 16:59 Last Admin: 06/06/20 05:32 Dose: 145 mcg Documented by: Miscellaneous (Carbohydrates For Hypoglycemia ) 15 - 30 gm PO UD PRN PRN Reason: Hypoglycemia Protocol Stop: 06/28/20 00:18 Nitroglycerin (Nitroglycerin Sl 0.4 Mg/Tab Tab) 0.4 mg SL UD PRN PRN Reason: Chest Pain Stop: 06/28/20 00:18 Last Admin: 06/05/20 17:32 Dose: 0.4 mg Documented by: Ondansetron HCl (Ondansetron 4 Mg Od Tab) 4 mg PO Q8H PRN PRN Reason: Nausea Stop: 06/29/20 21:13 Last Admin: 06/06/20 08:12 Dose: 4 mg Documented by: Pantoprazole Sodium (Pantoprazole 40 Mg Tab) 40 mg PO QAM [facility] Stop: 06/28/20 13:44 Last Admin: 06/06/20 08:15 Dose: 40 mg Documented by: Polyethylene Glycol (Polyethylene (Miralax) 17 Gm Pack) 17 gm PO DAILY [facility] Stop: 06/29/20 08:59 Last Admin: 06/06/20 08:15 Dose: Not Given Documented by: Polyethylene Glycol (Polyethylene (Miralax) 17 Gm Pack) 17 gm PO DAILY PRN PRN Reason: Constipation Stop: 06/28/20 20:55 Last Admin: 06/05/20 20:03 Dose: 17 gm Documented by: Prednisone (Prednisone 1 Mg Tab) 6 mg PO QAM [facility] Stop: 06/28/20 08:59 Last Admin: 06/06/20 08:15 Dose: 6 mg Documented by: Topiramate (Topiramate 100 Mg Tab) 100 mg PO BID [facility] Stop: 06/28/20 08:59 Last Admin: 06/06/20 08:17 Dose: 100 mg Documented by: Tramadol HCl (Tramadol Hcl 50 Mg Tablet) 50 mg PO Q8H PRN PRN Reason: Pain Stop: 07/01/20 19:39 Last Admin: 06/02/20 21:07 Dose: 50 mg Documented by: Trazodone HCl (Trazodone Hcl 50 Mg Tab) 50 mg PO HS PRN PRN Reason: Sleep Stop: 07/01/20 01:24 Last Admin: 06/02/20 21:07 Dose: 50 mg Documented by: PG Care Time/CCT Total # of Minutes Spent Total Time Spent with Patient: Total time spent is greater than 50% in coordination of care (as documented) at patient's floor/unit and/or counseling patient: Coding Level of Care Code 26366 Subseq Hosp Care Lvl 2 Diagnoses Chest pain R07.9 Chest pain type: unspecified Syncope R55 Syncope type: unspecified Acute head trauma S09.90XA Encounter type: initial encounter Lower back pain M54.5 Back pain laterality: midline Chronicity: acute Sciatica presence: without sciatica Seizure-like activity R56.9 Diabetes E11.42; Z79.4 Diabetes mellitus complication detail: with polyneuropathy Diabetes mellitus complication status: with neurologic complications Diabetes mellitus residential insulin use: with residential use Diabetes mellitus type: type 2 History of gastric bypass Z98.84 Chronic use of steroids Chronic kidney disease, stage 3a N18.3 CAD (coronary artery disease) I25.10 Associated angina: without angina Coronary Disease-Associated Artery/Lesion type: [place] artery [place] vs. transplanted heart: [place] heart 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; M35.9 Rheumatoid arthritis M06.9 Polymyositis M33.20 Migraine G43.909 DVT prophylaxis Z29.9 Constipated K59.00 (1) Acute head trauma Encounter type: initial encounter Qualified Code(s): S09.90XA - Unspecified injury of head, initial encounter (2) Lower back pain Back pain laterality: midline Chronicity: acute Sciatica presence: without sciatica Qualified Code(s): M54.5 - Low back pain (3) Diabetes Diabetes mellitus complication detail: with polyneuropathy Diabetes mellitus complication status: with neurologic complications Diabetes mellitus residential insulin use: 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 transplanted heart: [place] heart Qualified Code(s): I25.10 - Atherosclerotic heart disease of [place] coronary artery without angina pectoris (5) Syncope Syncope type: unspecified Qualified Code(s): R55 - Syncope and collapse (6) Chest pain Chest pain type: unspecified Qualified Code(s): R07.9 - Chest pain, unspecified
[2020-06-06] MEDS: allopurinoL 100 MG TAB PO SCH (21:00)
[2020-06-06] MEDS: ATORVASTATIN 40 MG TAB PO SCH (21:00)
[2020-06-07] MEDS: LINACLOTIDE 145 MCG CAPSULE PO SCH (06:00)
--- NOTE | 2020-06-07 08:45 | Hospitalist Progress Note ---
Date of Service June 07, 2020 Assessment & Plan (1) Syncope: 75 y/o M w/ hx of CAD (w/ stent), recurrent seizure-like activity, and episode of stroke-like symptoms (12/31/2019) who presents w/ mechanical fall and loss of consciousness likely 2/2 concussion from hitting his occiput. Stable. evaluated by Neurology, no further input Pt feels his falling over was from his legs giving out from his lumbar radiculopathy MRI lumbar spine with prior decompression L3-5 and he has foraminal narrowing, compression of L5 nerve root at L5/S1 Dr. Agarwal would recommend diagnostic L5 injection will hold Coumadin Lovenox 1mg/kg q12 tonight and tomorrow morning, then stop PT/OT evaluations - click scores are 19 for both PT/OT, he walked 16 feet with rolling walker he is motivated to get better, wants to go to [facility] insurance will deny [facility], will plan to go to [facility] will hold on transfer now that he had chest pain over the weekend plan is to be discharged to [facility] tomorrow they will transport him to Dr. Agarwal's office this week for visit with pain management he will need to return for 2nd visit for the actual L5 nerve root injection once they get insurance authorization have CM check with [facility] about timing of first visit Long conversation with patient's son. Patient refusing to go to nursing facility. Son is ok taking him home knowing risk of patient health deterioration and traumatic injury/fall leading to . He will bring patient to ER if patient needs help. (2) Acute head trauma: no signs of concussion he is alert and oriented no bleeding on CT head (3) Lower back pain: - chronic - now worsening symptoms, see MRI report continue PT/OT and set up for L5 injection with Dr. Agarwal, see above for plan after discharge - tylenol 650mg PO q4h prn for painplus prn he cannot tolerate oral narcotics (4) Seizure-like activity: - hx of multiple episodes in 2019. per neurology notes (both [facility] and [facility]), had questioned if epileptic vs non epileptic. psychogenic had also been on differential - neg eegs in past - Follows Dr. Sheikh at [facility] and another neurologist at [facility]. - has upcoming neuro appointment in May 2020 w/ plans to do 48 hour eeg - on large regimen of neurological medications, Keppra 1000 BID, topiramate 100 BID, and gabapentin 600 BID Neurology recommends continuing on his current medications, will sign off today (5) Diabetes: - home regimen per patient: 36u lantus BID. novolog SSI before meals and at bedtime - regimen during this admission: 20u lantus BID + SSI (correction factor 20, carb ratio 7). Weight based w/ chronic steroid use. 6 mg prednisone is low dose, consider decreasing insulin regimen slightly as needed. achs bsg monitor for hypoglycemia, no episodes today (6) History of gastric bypass: - avoid NSAIDs (7) Chronic use of steroids: - for RA, polymyositis, ILD - 6 month+ - no indication for stress dosing at this time. prednisone 6 mg a day (8) Chronic kidney disease, stage 3a: - hx R partial nephrectomy 1987 (9) CAD (coronary artery disease): - stent s/p occlusion of aortic aneurysm repair graft - 05/17/19 cardiac cath: patent L main stent. mild nonobstructive CAD. normally functioning mechanical AVR (10) Interstitial lung disease due to connective tissue disease: - home O2 2L at night only, every night (11) Rheumatoid arthritis: - chronic joint pains - continue home prednisone, chronic (12) Polymyositis: - continue daily prednisone (13) Migraine: - chronic, no current complaints - sees Dr. Andrea Underwood ([facility]), last saw last wk (14) Constipated: chronic issue, takes Relistor at home had son bring it in will give Relistor 145mcg daily small BM on 06/06 in the morning, feels like he still needs to move them he tried Duloclax 10mg and suppository with no results (15) DVT prophylaxis: start on Lovenox / Dr. Agarwal would recommend holding Coumadin for injection, this way he can continue Lovenox until injection next week then resume Coumadin Admission and Anticipated Discharge Date Admission Date: May 30, 2020 Subjective Reports 6/10 back pain after taking tylenol. Had small bowel movement. Eating well. Ambulated with walker with physical therapy Feeling very depressed, but denies suicidal ideation. Denies chest pain, sob, dizziness, palpitations. Patient continues to refuse to go to a nursing facility. Review of Systems Constitutional: no fever, no chills, no fatigue, no weakness, no anorexia, no weight loss and no weight gain Ear, Nose, Mouth, Throat: no nasal congestion, no sore throat and no dysphagia Respiratory: no cough and no dyspnea Cardiovascular: no chest pain, no dyspnea on exertion, no orthopnea and no palpitations Gastrointestinal: no abdominal pain, no nausea, no vomiting, no hematemesis, no dysphagia, no constipation, no diarrhea/loose stools, no blood in stools and no melena Genitourinary: no dysuria and no nocturia Musculoskeletal: + back pain; no joint pain, no myalgia and no muscle weakness Integumentary: no rash, no lesions, no skin ulcer, no erythema, no dry skin and no pruritus Neurologic: no falls, no localized weakness, no generalized weakness, no numbness, no paresthesia, no tremor(s) and no headache(s) Psychiatric: no depression, no suicidal ideation, no homicidal ideation and no anxiety Endocrine: no cold intolerance and no heat intolerance Hematologic / Lymphatic: no easy bleeding and no easy bruising Physical Exam 2 Constitutional: well developed and well nourished; no acute distress Eyes: PERRL, conjunctivae normal, anicteric sclerae ENMT: Mouth: oral mucous membranes not dry Respiratory: normal respiratory effort; no respiratory distress and no labored breathing Auscultation: lungs clear to auscultation bilaterally; no crackles, no rales, no rhonchi and no wheezes Cardiovascular: Rate/Rhythm: regular rate and regular rhythm Heart Sounds: no murmur and no cardiac rub Vessels: normal peripheral pulses and radial pulses present; no JVD Extremities: no edema Gastrointestinal (Abdomen): Inspection/Auscultation: abdomen normal to inspection and normal bowel sounds; abdomen not distended Percussion/Palpation: abdomen soft; abdomen nontender, no guarding, abdomen not rigid and no hepatosplenomegaly Musculoskeletal: Head/Neck/Chest: normocephalic and head atraumatic Spine: no cervical spinal tenderness, no cervical muscular tenderness, no thoracic spinal tenderness and no lumbar spinal tenderness Skin: no rashes, warm and dry Neurologic: CN's II-XI intact bilaterally and moves all extremities Motor/Sensory: no tremor and no sensory deficit Psychiatric: Orientation: alert, oriented to person, oriented to place and oriented to time Apperance: appropriately groomed; not disheveled Affect: euthymic affect; no anxious affect and no tearful affect Genitourinary: no Wetzel catheter Results & Data Results & Data ([facility]) Vital Signs (Past 12 Hours) Vital Signs Temp Pulse Pulse Resp BP Pulse Ox 06/07/20 07:46 36.7 C 57 L 16 127/67 95 06/07/20 06:59 59 L 06/07/20 03:32 36.4 C L 58 L 20 107/64 97 06/06/20 21:51 36.4 C L 54 L 20 106/59 L 98 Laboratory Results Abnormal lab results 06/06/20 06/06/20 06/06/20 Range/Units 11:29 16:57 19:43 POC Glucose 190 H 164 H 208 H (70-99) mg/dl 06/07/20 Range/Units 07:55 POC Glucose 118 H (70-99) mg/dl Medications Administered Current Inpatient Medications Acetaminophen (Acetaminophen 325 Mg Tab) 650 mg PO Q4H PRN PRN Reason: mild pain Or Fever Stop: 06/28/20 00:18 Last Admin: 06/06/20 11:06 Dose: 650 mg Documented by: Albuterol (Albuterol Hfa 8 Gm Inhaler) 2 puffs INH Q4H PRN PRN Reason: Wheezing Stop: 06/28/20 00:18 Last Admin: 06/03/20 11:51 Dose: 2 puffs Documented by: Allopurinol (Allopurinol 100 Mg Tab) 200 mg PO [facility] Stop: 06/28/20 20:59 Last Admin: 06/06/20 21:00 Dose: 200 mg Documented by: Aspirin (Aspirin 81 Mg Ectab) 81 mg PO [facility] Stop: 07/05/20 08:59 Last Admin: 06/06/20 08:15 Dose: 81 mg Documented by: Atorvastatin Calcium (Atorvastatin 40 Mg Tab) 40 mg PO [facility] Stop: 06/28/20 20:59 Last Admin: 06/06/20 21:00 Dose: 40 mg Documented by: Azithromycin (Azithromycin 250 Mg Tab) 250 mg PO MoWeFr@0900 [facility] Stop: 06/30/20 08:59 Last Admin: 06/04/20 08:48 Dose: 250 mg Documented by: Bisacodyl (Bisacodyl 10 Mg Supp) 10 mg [place] DAILY PRN PRN Reason: Constipation Stop: 06/28/20 20:55 Last Admin: 06/06/20 08:17 Dose: 10 mg Documented by: Calcium Carbonate (Calcium Carbonate 500 Mg Chewable Tab) 500 mg PO Q6 PRN PRN Reason: Indigestion Stop: 07/05/20 14:13 Last Admin: 06/05/20 14:33 Dose: 500 mg Documented by: Dextrose (Dextrose 50% 50 Ml Syringe) 25 - 50 ml IV UD PRN; Protocol PRN Reason: Hypoglycemia Protocol Stop: 06/28/20 00:18 Enoxaparin Sodium (Enoxaparin Inj 120 Mg/0.8 Ml Syr) 111 mg SQ Q12H KIRSTEN Stop: 07/04/20 21:59 Last Admin: 06/06/20 21:02 Dose: 111 mg Documented by: Finasteride (Finasteride 5 Mg Tab) 5 mg PO QAM KIRST[facility] Stop: 06/28/20 08:59 Last Admin: 06/06/20 08:15 Dose: 5 mg Documented by: Gabapentin (Gabapentin 600 Mg Tab) 600 mg PO BID [facility] Stop: 06/28/20 08:59 Last Admin: 06/06/20 20:59 Dose: 600 mg Documented by: Glucagon (Glucagon For Inj 1 Mg Vial) 1 mg SQ UD PRN; Protocol PRN Reason: Hypoglycemia Protocol Stop: 06/28/20 00:18 Glucose (Glucose 10 Tabs/Tube) 4 - 8 tabs PO UD PRN; Protocol PRN Reason: Hypoglycemia Protocol Stop: 06/28/20 00:18 Glucose (Glucose 40% Gel 15 Gm Tube) 15 - 30 gm PO UD PRN; Protocol PRN Reason: Hypoglycemia Protocol Stop: 06/28/20 00:18 Insulin Aspart (Insulin Aspart 100 Units/Ml 3 Ml Pen) 0 units SC ACHS [facility] Stop: 06/28/20 07:29 Last Admin: 06/06/20 20:57 Dose: 3 units Documented by: Insulin Glargine (Insulin Glargine Solostar 100 Units/Ml 3 Ml Pen) 20 units SC BID [facility] Stop: 06/28/20 08:59 Last Admin: 06/06/20 20:57 Dose: 20 units Documented by: Levetiracetam (Levetiracetam 500 Mg Tab) 1,000 mg PO BID [facility] Stop: 06/28/20 08:59 Last Admin: 06/06/20 21:00 Dose: 1,000 mg Documented by: Linaclotide (Linaclotide 145 Mcg Capsule) 145 mcg PO DAILYBB [facility] Stop: 07/05/20 16:59 Last Admin: 06/07/20 06:00 Dose: 145 mcg Documented by: Miscellaneous (Carbohydrates For Hypoglycemia ) 15 - 30 gm PO UD PRN PRN Reason: Hypoglycemia Protocol Stop: 06/28/20 00:18 Nitroglycerin (Nitroglycerin Sl 0.4 Mg/Tab Tab) 0.4 mg SL UD PRN PRN Reason: Chest Pain Stop: 06/28/20 00:18 Last Admin: 06/05/20 17:32 Dose: 0.4 mg Documented by: Ondansetron HCl (Ondansetron 4 Mg Od Tab) 4 mg PO Q8H PRN PRN Reason: Nausea Stop: 06/29/20 21:13 Last Admin: 06/06/20 08:12 Dose: 4 mg Documented by: Pantoprazole Sodium (Pantoprazole 40 Mg Tab) 40 mg PO QAM [facility] Stop: 06/28/20 13:44 Last Admin: 06/06/20 08:15 Dose: 40 mg Documented by: Polyethylene Glycol (Polyethylene (Miralax) 17 Gm Pack) 17 gm PO DAILY [facility] Stop: 06/29/20 08:59 Last Admin: 06/06/20 08:15 Dose: Not Given Documented by: Polyethylene Glycol (Polyethylene (Miralax) 17 Gm Pack) 17 gm PO DAILY PRN PRN Reason: Constipation Stop: 06/28/20 20:55 Last Admin: 06/05/20 20:03 Dose: 17 gm Documented by: Prednisone (Prednisone 1 Mg Tab) 6 mg PO QAM [facility] Stop: 06/28/20 08:59 Last Admin: 06/06/20 08:15 Dose: 6 mg Documented by: Topiramate (Topiramate 100 Mg Tab) 100 mg PO BID [facility] Stop: 06/28/20 08:59 Last Admin: 06/06/20 21:00 Dose: 100 mg Documented by: Tramadol HCl (Tramadol Hcl 50 Mg Tablet) 50 mg PO Q8H PRN PRN Reason: Pain Stop: 07/01/20 19:39 Last Admin: 06/02/20 21:07 Dose: 50 mg Documented by: Trazodone HCl (Trazodone Hcl 50 Mg Tab) 50 mg PO HS PRN PRN Reason: Sleep Stop: 07/01/20 01:24 Last Admin: 06/02/20 21:07 Dose: 50 mg Documented by: PG Care Time/CCT Total # of Minutes Spent Total Time Spent with Patient: Total time spent is greater than 50% in coordination of care (as documented) at patient's floor/unit and/or counseling patient: Coding Level of Care Code None Diagnoses Syncope R55 Syncope type: unspecified Acute head trauma S09.90XA Encounter type: initial encounter Lower back pain M54.5 Back pain laterality: midline Chronicity: acute Sciatica presence: without sciatica Seizure-like activity R56.9 Diabetes E11.42; Z79.4 Diabetes mellitus complication detail: with polyneuropathy Diabetes mellitus complication status: with neurologic complications Diabetes mellitus longterm insulin use: with longterm use Diabetes mellitus type: type 2 History of gastric bypass Z98.84 Chronic use of steroids Chronic kidney disease, stage 3a N18.3 CAD (coronary artery disease) I25.10 Associated angina: without angina Coronary Disease-Associated Artery/Lesion type: [place] artery [place] vs. transplanted heart: [place] heart 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; M35.9 Rheumatoid arthritis M06.9 Rheumatoid arthritis location: unspecified site Rheumatoid factor presence: unspecified presence Polymyositis M33.20 Migraine G43.909 Migraine type: unspecified Status migrainosus presence: without status migrainosus Intractability: not intractable Constipated K59.00 Constipation type: unspecified constipation type DVT prophylaxis Z29.9 (1) Acute head trauma Encounter type: initial encounter Qualified Code(s): S09.90XA - Unspecified injury of head, initial encounter (2) Rheumatoid arthritis Rheumatoid arthritis location: unspecified site Rheumatoid factor presence: unspecified presence Qualified Code(s): M06.9 - Rheumatoid arthritis, unspecified (3) Lower back pain Back pain laterality: midline Chronicity: acute Sciatica presence: without sciatica Qualified Code(s): M54.5 - Low back pain (4) Diabetes Diabetes mellitus complication detail: with polyneuropathy Diabetes mellitus complication status: with neurologic complications Diabetes mellitus longterm insulin use: with longterm use Diabetes mellitus type: type 2 Qualified Code(s): E11.42 - Type 2 diabetes mellitus with diabetic polyneuropathy; Z79.4 - terminologist (current) use of insulin (5) CAD (coronary artery disease) Associated angina: without angina Coronary Disease-Associated Artery/Lesion type: [place] artery [place] vs. transplanted heart: [place] heart Qualified Code(s): I25.10 - Atherosclerotic heart disease of [place] coronary artery without angina pectoris (6) Migraine Migraine type: unspecified Status migrainosus presence: without status migrainosus Intractability: not intractable Qualified Code(s): G43.909 - Migraine, unspecified, not intractable, without status migrainosus (7) Syncope Syncope type: unspecified Qualified Code(s): R55 - Syncope and collapse (8) Constipated Constipation type: unspecified constipation type Qualified Code(s): K59.00 - Constipation, unspecified
[2020-06-07] MEDS: bisacodyL 10 MG SUPP PR PRN (08:48)
[2020-06-07] MEDS: ACETAMINOPHEN 325 MG TAB PO PRN ×2 (08:48→13:13)
[2020-06-07] MEDS: levETIRAcetam 500 MG TAB PO SCH (08:49)
[2020-06-07] MEDS: ENOXAPARIN INJ 120 MG/0.8 ML SYR SQ SCH (08:50)
[2020-06-07] MEDS: ASPIRIN 81 MG ECTAB PO SCH (08:51)
[2020-06-07] MEDS: FINASTERIDE 5 MG TAB PO SCH (08:51)
[2020-06-07] MEDS: predniSONE 1 MG TAB PO SCH (08:51)
[2020-06-07] MEDS: GABAPENTIN 600 MG TAB PO SCH (08:51)
[2020-06-07] MEDS: AZITHROMYCIN 250 MG TAB PO SCH (08:52)
[2020-06-07] MEDS: TOPIRAMATE 100 MG TAB PO SCH (08:52)
[2020-06-07] MEDS: PANTOprazole 40 MG TAB PO SCH (08:52)
[2020-06-07] MEDS: POLYETHYLENE (MIRALAX) 17 GM PACK PO SCH (08:52)
[2020-06-07] MEDS: INSULIN GLARGINE SOLOSTAR 100 UNITS/ML 3 ML PEN SC SCH (08:56)
[2020-06-07] MEDS: INSULIN ASPART 100 UNITS/ML 3 ML PEN SC SCH ×3 (08:57→17:33)
--- NOTE | 2020-06-07 10:11 | Cardiology Progress Note ---
Date of Service June 07, 2020 Assessment & Plan (1) Chest pain: He describes intermittent chest discomfort which is somewhat prolonged, not exertional and has been present historically with several evaluations including catheterizations without any progressive disease identified. Here he had a somewhat prolonged episode (at least an hour or more) shortly after admission with negative enzymes and only minor nonspecific ST-T abnormalities. No wall motion abnormalities on echocardiography. The symptoms have improved with no clear etiology. Although he has had coronary disease identified in the past I would not pursue further evaluation at this time. (2) CAD (coronary artery disease): His records indicate that he does have coronary disease and has had a left main stent placed in the past but he has had several catheterizations since with no progression of disease. His symptoms are atypical and enzymes are negative and therefore I would not pursue evaluation for progression at this time. (3) History of aortic valve replacement: He has had an aortic valve replacement which by his description occurred in 2003, it is a mechanical valve (by history and exam) although the echocardiogram evidently did not visualize it well. It does not have high gradients on echocardiography, on exam he does have metallic valve sounds and the valve appears to be functioning normally. I would not pursue further evaluation. Admission and Anticipated Discharge Date Admission Date: May 30, 2020 Subjective He has had less chest discomfort over the last 24 hours although it is still present intermittently. He is not very specific about the description. Physical Exam Physical Exam: Constitutional: Alert, cooperative and in no distress. HEENT: Unremarkable Neck: No jugular venous distention, carotid pulses are normal and equal bilaterally without bruits. Pulmonary: Clear to auscultation bilaterally. Cardiac: Regular rhythm with good prosthetic valve sounds (mechanical) and a grade 2/6 holosystolic murmur at the apex, no gallop or rub. Abdomen: Soft, nontender with normal bowel sounds. Extremities: No edema. Distal pulses intact. Neurologic: No focal findings. Gait is steady. Skin: No rash, ecchymoses or petechiae. He has a midsternal thoracotomy scar. Results & Data ([facility]) Vital Signs (Past 12 Hours) Vital Signs Temp Pulse Pulse Resp BP Pulse Ox 06/07/20 07:46 36.7 C 57 L 16 127/67 95 06/07/20 06:59 59 L 06/07/20 03:32 36.4 C L 58 L 20 107/64 97 Diagnostic Findings Intake and Output 06/06/20 06/07/20 06/07/20 22:59 06:59 14:59 Intake Total 220 / 610 150 / 610 Output Total 700 / 1050 150 / 1050 Balance -480 / -440 0 / -440 Intake: Oral 220 / 610 150 / 610 Output: Urine 700 / 1050 150 / 1050 Other: Weight 109 kg Weight Measurement Method Built in [facility] Telemetry: Sinus rhythm and sinus bradycardia, PVCs PG Care Time/CCT Total # of Minutes Spent Total Time Spent with Patient: Total time spent is greater than 50% in coordination of care (as documented) at patient's floor/unit and/or counseling patient: Coding Level of Care Code 47274 Subseq Hosp Care Lvl 2 Diagnoses Chest pain R07.2 Chest pain type: precordial pain CAD (coronary artery disease) I25.10 Associated angina: without angina Coronary Disease-Associated Artery/Lesion type: [place] artery [place] vs. transplanted heart: [place] heart History of aortic valve replacement Z95.2 (1) CAD (coronary artery disease) Associated angina: without angina Coronary Disease-Associated Artery/Lesion type: [place] artery [place] vs. transplanted heart: [place] heart Qualified Code(s): I25.10 - Atherosclerotic heart disease of [place] coronary artery without angina pectoris (2) Chest pain Chest pain type: precordial pain Qualified Code(s): R07.2 - Precordial pain
[2020-06-07 14:15] LABS: Hemoglobin 10.6 g/dL (14.0-18.0); Mean Corpuscular Hemoglobin 27.8 pg (25-34); Mean Corpuscular Hgb Conc 32.1 g/dL (32-36); Mean Corpuscular Volume 86.6 fL (80-100); Mean Platelet Volume 9.6 fL (7.4-10.4); Platelet Count 172 K/uL (130-400); RDW Standard Deviation 47.1 fL (36.4-46.3); Red Blood Count 3.81 M/uL (4.7-6.1); White Blood Count 5.35 K/uL (4.8-10.8)
[2020-06-07 14:40] LABS: BUN Creatinine Ratio 15.8 (10-20); Calcium 9.2 mg/dl (8.5-10.1); Creatinine Clr Calc Pharmacy 60.7 ml/min; Est GFR (African American) 60.7; Est GFR (Non-African American) 52.4; Potassium 3.8 mmol/L (3.5-5.1)
--- NOTE | 2020-06-07 15:26 | Discharge Summary ---
Date of Service June 07, 2020 Principal Diagnosis mechanical fall concussion low back pain Discharge Exam Constitutional well developed and well nourished; no acute distress Eyes PERRL, conjunctivae normal, anicteric sclerae ENMT Mouth: oral mucous membranes not dry Respiratory normal respiratory effort; no respiratory distress and no labored breathing Auscultation: lungs clear to auscultation bilaterally; no crackles, no rales, no rhonchi and no wheezes Cardiovascular Rate/Rhythm: regular rate and regular rhythm Heart Sounds: no murmur and no cardiac rub Vessels: normal peripheral pulses and radial pulses present; no JVD Extremities: no edema Gastrointestinal (Abdomen) Inspection/Auscultation: abdomen normal to inspection and normal bowel sounds; abdomen not distended Percussion/Palpation: abdomen soft; abdomen nontender, no guarding, abdomen not rigid and no hepatosplenomegaly Musculoskeletal Head/Neck/Chest: normocephalic and head atraumatic Spine: no cervical spinal tenderness, no cervical muscular tenderness, no thoracic spinal tenderness and no lumbar spinal tenderness Skin no rashes, warm and dry Neurologic CN's II-XI intact bilaterally and moves all extremities Motor/Sensory: no tremor and no sensory deficit Psychiatric Orientation: alert, oriented to person, oriented to place and oriented to time Apperance: appropriately groomed; not disheveled Affect: euthymic affect; no anxious affect and no tearful affect Discharge Data Allergies Allergy/AdvReac Type Severity Reaction Status Date / Time Iodinated Contrast Media Allergy Severe Anaphylaxis Verified 05/28/20 18:57 shellfish derived Allergy Severe Anaphylaxis Verified 05/28/20 18:57 Tetanus Vaccines and Toxoid Allergy Unknown Unknown Verified 05/28/20 18:57 Consultations 05/28/20 19:43 ED Decision to Admit Stat 05/29/20 00:19 Consult Neurology Routine 05/30/20 14:46 Consult Orthopedic Surgery Routine 05/31/20 09:05 Consult Case Management - Discharge Planning Routine 06/05/20 11:22 Consult Cardiology Routine Ordered Studies 05/28/20 15:37 CT head/brain wo con Stat CT lumbar spine wo con Stat 05/30/20 14:46 MR lumbar spine wo con Routine Hospital Course (1) Fall: 75 y/o M w/ hx of CAD (w/ stent), recurrent seizure-like activity, and episode of stroke-like symptoms (12/31/2019) who presents w/ mechanical fall and loss of consciousness likely 2/2 concussion from hitting his occiput. Stable. evaluated by Neurology, no further input Pt feels his falling over was from his legs giving out from his lumbar radiculopathy PT/OT evaluations - click scores are 19 for both PT/OT, he walked 16 feet with rolling walker insurance will deny [facility] Long conversation with patient's son. Patient refusing to go to nursing facility. Son is ok taking him home knowing risk of patient health deterioration and traumatic injury/fall leading to . He will bring patient to ER if patient needs help. plan is to be discharged to [facility] tomorrow they will transport him to Dr. Agarwal's office this week for visit with pain management he will need to return for 2nd visit for the actual L5 nerve root injection once they get insurance authorization have CM check with [facility] about timing of first visit (2) Nerve root compression: MRI lumbar spine with prior decompression L3-5 and he has foraminal narrowing, compression of L5 nerve root at L5/S1 Dr. Agarwal would recommend diagnostic L5 injection Stop aspirin and coumadin Continue using lovenox 100mg every 12 hours up until 24 hours prior to your injection appointment In other words, stop lovenox one day (24 hours) before your spinal injection Restart coumadin and aspirin 81mg 24 hours after your spinal injection appointment (3) Acute head trauma: no signs of concussion he is alert and oriented no bleeding on CT head (4) Lower back pain: - chronic - now worsening symptoms, see MRI report continue PT/OT and set up for L5 injection with Dr. Agarwal, see above for plan after discharge - tylenol 650mg PO q4h prn for painplus prn he cannot tolerate oral narcotics (5) Seizure-like activity: - hx of multiple episodes in 2019. per neurology notes (both [facility] and [facility]), had questioned if epileptic vs non epileptic. psychogenic had also been on differential - neg eegs in past - Follows Dr. Sheikh at [facility] and another neurologist at [facility]. - has upcoming neuro appointment in May 2020 w/ plans to do 48 hour eeg - on large regimen of neurological medications, Keppra 1000 BID, topiramate 100 BID, and gabapentin 600 BID Neurology recommends continuing on his current medications, will sign off today (6) Diabetes: - home regimen per patient: 36u lantus BID. novolog SSI before meals and at bedtime - regimen during this admission: 20u lantus BID + SSI (correction factor 20, carb ratio 7). Weight based w/ chronic steroid use. 6 mg prednisone is low dose, consider decreasing insulin regimen slightly as needed. achs bsg monitor for hypoglycemia, no episodes today (7) History of gastric bypass: - avoid NSAIDs (8) Chronic use of steroids: - for RA, polymyositis, ILD - 6 month+ - no indication for stress dosing at this time. prednisone 6 mg a day (9) Chronic kidney disease, stage 3a: - hx R partial nephrectomy 1987 (10) CAD (coronary artery disease): - stent s/p occlusion of aortic aneurysm repair graft - 05/17/19 cardiac cath: patent L main stent. mild nonobstructive CAD. normally functioning mechanical AVR (11) Interstitial lung disease due to connective tissue disease: - home O2 2L at night only, every night (12) Rheumatoid arthritis: - chronic joint pains - continue home prednisone, chronic (13) Polymyositis: - continue daily prednisone (14) Migraine: - chronic, no current complaints - sees Dr. Andrea Underwood ([facility]), last saw last wk (15) Constipated: chronic issue, takes Relistor at home had son bring it in will give Relistor 145mcg daily small BM on 06/06 in the morning, feels like he still needs to move them he tried Duloclax 10mg and suppository with no results (16) DVT prophylaxis: start on Lovenox 2/ Dr. Agarwal would recommend holding Coumadin for injection, this way he can continue Lovenox until injection next week then resume Coumadin Total Time Total Time Spent Total Time Spent (In Minutes): 50 Total Time Includes: Examination of the Patient, Discharge Planning, Medication Reconciliation and Communication With Other Providers Discharge Plan Discharge Items Patient Disposition: Home - Home Health Services Reason For Visit: FALL, CONCUSSION Discharge Diagnosis: mechanical fall concussion L5 nerve root compression Condition on Discharge: Fair Activity: Resume your previous activity Non-emergency contact: Primary Care Provider Call non-emergency contact if: you have any medication questions and your symptoms worsen Follow-up/Referrals: Duy Crawford [Other] - 06/09/20 4:30 pm (This is the appointment for the nerve block injection.) Josh Gaspar MD [Primary Care Provider] - (within one week for repeat blood work, INR monitoring and hospital follow up) Diet: Carb Consistent or DM2 and Low Sodium (2gm) Addtl Attending Provider Instructions: Your spinal injection consultation (not the actual shot, just discussing options) is on Jun 09 at 430pm Take lovenox shot 100mg twice a day up until one day (24 hours) before your spinal injection or as otherwise directed by Dr. Crawford. Do not take any more lovenox shots after your spinal injection. We stopped your coumadin several days ago. Restart your coumadin 24 hours after your spinal injection occurs You can start taking aspirin 81mg daily at the same time you resume your coumadin Decrease your lantus dose to 20 units in the morning and 20 units at night Stop taking torsemide Monitor your weight every day and if you gain 3 pounds in a day or 5 pounds in a week, contact your primary care doctor See your primary care doctor within one week for INR check and to follow up hospital events Physical therapy and occupational therapy recommended penitentiary placement and 24 hour supervision. They also recommended only getting up with assistance of another person. You have refused penitentiary placement. If you change your mind, please come back to the ER and ask for admission to facilitate penitentiary placement. Home health is being set up to help you after discharge Pending Studies at Discharge: No Stand-Alone Forms: My [facility] [employer], Smoking Cessation Medications and DC Order Prescriptions: New enoxaparin [Lovenox] 120 mg/0.8 mL Syringe 111 mg subcut Q12H 1 Days Qty: 1.48 RF: 0 acetaminophen 325 mg Tablet 650 mg PO Q6H PRN (Reason: Pain) 30 Days Qty: 240 RF: 0 Lantus Solostar U-100 Insulin 100 unit/mL (3 mL) Insulin Pen 20 unit SC BID 30 Days Qty: 12 RF: 0 enoxaparin [Lovenox] 100 mg/mL syringe 100 mg subcut Q12H 15 Days Qty: 30 RF: 0 aspirin 81 mg Tablet,Delayed Release (Dr/Ec) 81 mg PO QAM 30 Days Qty: 30 RF: 0 Continued topiramate 100 mg tablet 100 mg PO BID 30 Days Qty: 60 RF: 5 gabapentin 600 mg tablet 600 mg PO BID RF: 0 levetiracetam 1,000 mg tablet 1,000 mg PO BID 90 Days Qty: 180 RF: 1 Linzess 145 mcg capsule 145 mcg PO QAM Qty: 30 RF: 0 ipratropium-albuterol 0.5 mg-3 mg(2.5 mg base)/3 mL Solution For Nebulization 3 ml INHALATION QID PRN (Reason: Shortness Of Breath Or Wheezing) RF: 0 trazodone 50 mg Tablet 50 mg PO HS PRN (Reason: Sleep) RF: 0 azithromycin 250 mg Tablet 250 mg PO .MOWEFR@QAM RF: 0 allopurinol 100 mg Tablet 200 mg PO HS RF: 0 nitroglycerin 0.4 mg Tablet, Sublingual 0.4 mg sublingual DIRECTED PRN (Reason: Chest Pain) RF: 0 albuterol sulfate [Ventolin HFA] 90 mcg/actuation Hfa Aerosol Inhaler 2 puff INHALATION Q4H PRN (Reason: Wheezing) RF: 0 finasteride 5 mg Tablet 5 mg PO QAM RF: 0 insulin aspart U-100 100 unit/mL (3 mL) Insulin Pen See Rx Instructions .ROUTE .COMPLEX RF: 0 Trulicity 1.5 mg/0.5 mL Pen Injector 1.5 mg SUBCUT SA RF: 0 cholecalciferol (vitamin D3) [Vitamin D3] 50 mcg (2,000 unit) Capsule 2,000 unit PO HS RF: 0 [id number]-[id number]-tvmv 333-133-5 mg Tablet 1 tab PO HS RF: 0 atorvastatin 40 mg tablet 40 mg PO HS RF: 0 prednisone 1 mg tablet 6 mg PO QAM RF: 0 Discontinued warfarin 7.5 mg tablet 7.5 mg PO HS RF: 0 torsemide 20 mg Tablet 20 mg PO QAM RF: 0 Lantus Solostar U-100 Insulin 100 unit/mL (3 mL) insulin pen 50 unit SUBCUT BID RF: 0 Discharge Orders: Discharge Order (Routine); Ordered 06/07/20 Ordered By: Edith Sen/Other Patient Handouts: Managing Type 2 Diabetes Admission Data Admit Date/Time: 05/30/20 14:43 Attending Provider: Edith Quinn Admit Provider: Hiram Bray Primary Care Provider: Josh Gaspar Other Providers: Shayan Mims ; Britton Sheikh ; Darius Agarwal ; Olesya Munoz at [place] ; [facility], ; [facility] ; [facility] ; Shahid Cross ; [facility] Other Interventions: Discharge Summary Assessment (RN) Last Done: 06/07/20 14:49 Coding Level of Care Code D/C Day Management >30 mins Diagnoses Fall W19.XXXA Nerve root compression G54.9 Acute head trauma S09.90XA Encounter type: initial encounter Lower back pain M54.5 Back pain laterality: midline Chronicity: acute Sciatica presence: without sciatica Seizure-like activity R56.9 Diabetes E11.42; Z79.4 Diabetes mellitus complication detail: with polyneuropathy Diabetes mellitus complication status: with neurologic complications Diabetes mellitus 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 transplanted heart: [place] heart 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; M35.9 Rheumatoid arthritis M06.9 Rheumatoid arthritis location: unspecified site Rheumatoid factor presence: unspecified presence Polymyositis M33.20 Migraine G43.909 Intractability: not intractable Migraine type: unspecified Status migrainosus presence: without status migrainosus Constipated K59.00 Constipation type: unspecified constipation type DVT prophylaxis Z29.9
== END 2020-06-07 19:18 | disposition home health service (06) | DRG 552 ==
LOC: 2N 14:38 → ED 14:38 → SUATTDRO 22:29 → 2N 05-29 00:04 → SUATTDRO 05-30 14:43

== ENCOUNTER 2020-07-10 18:35 | Inpatient (IN) ==
[2020-07-10] MEDS ORDERED: ALBUT/IPRATROP 3MG/0.5MG NEB 3 ML VIAL NEB STA ×2 (19:01→20:40)
[2020-07-10] MEDS ORDERED: DEXAMETHASONE SOD INJ 10 MG/ML VIAL IV ONE (19:01)
--- NOTE | 2020-07-10 19:19 | XRay Report ---
XR chest 1V portable HISTORY: 75 years-old Male SEPSIS acute sepsis with shortness of breath COMPARISON: Chest radiograph 06/04/2020 TECHNIQUE: Portable AP view of the chest FINDINGS: Cardiac silhouette is enlarged. Prior median sternotomy. Surgical suture material projects over the l eft lung base. Unchanged blunting of the costophrenic angles. Pulmonary vascular congestion without p neumothorax. Mild left greater than right bibasilar opacities. Degenerative changes of the shoulders and spine. IMPRESSION: 1. Cardiomegaly with pulmonary vascular congestion. 2. Mild left greater than right bibasilar opacities suggest atelectasis versus pneumonitis. ACT 112: Negative or not required by law. The above report was generated using voice recognition software. It may contain grammatical, syntax o r spelling errors. Electronically signed by: Terry Orozco M.D. 07/10/2020 7:17 PM
[2020-07-10 19:38] LABS: Basophils # (auto) 0.01 K/uL (0-0.2); Basophils % (auto) 0.3 %; Eosinophils # (auto) 0.06 K/uL (0-0.5); Eosinophils % (auto) 1.9 %; Hematocrit (blood only) 34.2 % (42-52); Hemoglobin 11.2 g/dL (14.0-18.0); Immature Granulocytes # (auto) 0.01 K/uL (0.00-0.02); Immature Granulocytes % (auto) 0.3 %; Lymphocytes # (auto) 0.56 K/uL (1.2-3.4); Lymphocytes % (auto) 17.6 %; Mean Corpuscular Hemoglobin 27.9 pg (25-34); Mean Corpuscular Hgb Conc 32.7 g/dL (32-36); Mean Corpuscular Volume 85.1 fL (80-100); Mean Platelet Volume 10.3 fL (7.4-10.4); Monocytes # (auto) 0.14 K/uL (0.11-0.59); Monocytes % (auto) 4.4 %; Neutrophils # (auto) 2.41 K/uL (1.4-6.5); Neutrophils % (auto) 75.5 %; Platelet Count 155 K/uL (130-400); RDW Coefficient of Variation 15.5 % (11.5-14.5); RDW Standard Deviation 48.6 fL (36.4-46.3); Red Blood Count 4.02 M/uL (4.7-6.1); White Blood Count 3.19 K/uL (4.8-10.8)
[2020-07-10 19:42] LABS: Base Excess VBG -2.6 mEq/L; HCO3 VBG 23 mmol/L; PCO2 VBG 42 mmHg (38-50); PO2 VBG 33 mmHg; pH VBG 7.35 (7.36-7.41)
[2020-07-10 19:44] LABS: Oxygen Saturation VBG < 60.0 %
--- NOTE | 2020-07-10 19:55 | CT Scan Report ---
CT head/brain wo con CLINICAL HISTORY: 75 years-old Male with fall on coumadin. Acute head injury status post fall TECHNIQUE: Multiple axial CT images of the head were obtained without contrast. A dose lowering tech nique was utilized adhering to the principles of ALARA. CT DOSE: 2815.94 mGy.cm COMPARISON: Head CT 05/28/2020 FINDINGS: No acute intracranial hemorrhage, midline shift, intracranial mass, hydrocephalus, territorial ischem ia or abnormal extra-axial collection. Age-related involutional changes. White matter hypodensities s uggest chronic microvascular ischemic disease. Cerebral vascular calcifications. The calvarium is intact. Prior bilateral lens replacement. Small right and large left mastoid effusio ns unchanged. Paranasal sinuses are generally clear. IMPRESSION: No acute intracranial abnormality. ACT 112: Negative or not required by law. The above report was generated using voice recognition software. It may contain grammatical, syntax o r spelling errors. Electronically signed by: Terry Orozco M.D. 07/10/2020 7:54 PM
--- NOTE | 2020-07-10 20:03 | CT Scan Report ---
CT cervical spine wo con CLINICAL HISTORY: 75 years-old Male with fall on coumadin. Acute head and neck injury status post fa ll COMPARISON: Head CT of same day TECHNIQUE: Multiple axial CT images of the cervical spine were obtained without contrast. A dose low ering technique was utilized adhering to the principles of ALARA. FINDINGS: Discectomy changes with anterior plate and screw fusion at C4-C5. Greater than 80% fusion o f the vertebral bodies. Posterior spondylitic spurring with ossification of the posterior longitudina l ligament at this level are noted. Mild to moderate disc space narrowing at C5-C6. Degenerative bony fusion of the left facets at C2-C3. No acute fracture or subluxation. Evaluation of the central maico l or neuroforamina is better assessed by MRI. Multilevel foraminal narrowing. Left greater than right mastoid effusions. Lung apices are clear. Prior median sternotomy. Calcified plaque of the carotid bulbs. IMPRESSION: No acute fracture or subluxation. ACT 112: Negative or not required by law. The above report was generated using voice recognition software. It may contain grammatical, syntax o r spelling errors. Electronically signed by: Terry Orozco M.D. 07/10/2020 8:02 PM
[2020-07-10 20:05] LABS: Alanine Aminotransferase 41 U/L (12-78); Albumin Globulin Ratio 1.1 (0.9-2); Albumin Level 3.1 gm/dl (3.4-5.0); Alkaline Phosphatase 67 U/L (45-117); Aspartate Aminotransferase 29 U/L (15-37); Bilirubin,Total 0.4 mg/dl (0.2-1); Blood Urea Nitrogen 26 mg/dl (7-18); Calcium 8.8 mg/dl (8.5-10.1); Carbon Dioxide 23 mmol/L (21-32); Chloride 111 mmol/L (98-107); Creatinine Clr Calc Pharmacy 63.6 ml/min; Est GFR (African American) 60.7; Est GFR (Non-African American) 52.4; Globulin 2.9 gm/dl (2.5-4.0); Glucose 233 mg/dl (70-99); Magnesium 2.1 mg/dl (1.8-2.4); Potassium 4.7 mmol/L (3.5-5.1); Sodium 139 mmol/L (136-145); Troponin I < 0.015 ng/ml (0-0.045)
[2020-07-10 20:06] LABS: INR 2.9 (0.9-1.1); Partial Thromboplastin Ratio 1.3; Partial Thromboplastin Time 35.3 Seconds (21.0-31.0); Prothrombin Time 27.2 Seconds (9.0-12.0)
--- NOTE | 2020-07-10 20:12 | CT Scan Report ---
ABDOMEN AND PELVIS CT WITHOUT CONTRAST HISTORY: Acute abdominal trauma status post fall fall on coumadin TECHNIQUE: Multiaxial CT images of the abdomen and pelvis were performed without contrast. A dose lo wering technique was utilized adhering to the principles of ALARA. COMPARISON STUDY: CT abdomen and pelvis 01/25/2020 FINDINGS: Prior median sternotomy. Coronary artery calcifications. Unchanged pleural parenchymal scarring of th e basal right lower lobe. Chronic bibasilar centrilobular groundglass opacities. There is no pneumato sis or pneumoperitoneum. The unenhanced spleen, mildly atrophic pancreas and adrenal glands are unrem arkable. Cholecystectomy. Unremarkable liver. Gastric lap band is in place. Mild nonspecific bilatera l perinephric stranding. There are a few ill-defined subcentimeter areas of probable calcification in volving the bilateral kidneys. Possible punctate nonobstructing calculus of the superior pole left ki dney. No ureteral calculi or obstructive uropathy. Unremarkable urinary bladder. Brachytherapy seeds of the prostate. Calcified plaque the abdominal aorta. There is no adenopathy. Prior right-sided ingu inal hernia repair. There is no bowel obstruction or bowel wall thickening. Colonic diverticulosis. The appendix is repor tedly surgically absent. No ascites or retroperitoneal hematoma. Prior ventral abdominal wall hernior rhaphy. Laminectomy changes are noted at L3-L4. No acute fracture. IMPRESSION: 1. No acute posttraumatic intra-abdominal or intrapelvic abnormality. 2. No acute fracture. 3. Chronic left greater than right bibasilar centrilobular and groundglass opacities suggestive of an infectious or inflammatory pneumonitis. 4. No bowel obstruction. 5. Appendectomy and cholecystectomy with gastric lap band in place. 6. Additional findings as above. ACT 112: Negative or not required by law. The above report was generated using voice recognition software. It may contain grammatical, syntax o r spelling errors. Electronically signed by: Terry Orozco M.D. 07/10/2020 8:11 PM
[2020-07-10 20:30] LABS: Influenza A virus by PCR Negative (Neg); Influenza B virus by PCR Negative (Neg); RSV by PCR Negative (Neg); SARS CoV2 RNA(COVID-19) InHosp NEGATIVE (Negative)
--- NOTE | 2020-07-10 21:40 | History & Physical Report ---
Date of Service July 10, 2020 Assessment & Plan (1) Weakness: Xavi Bradford is a 75-year-old male with PMH significant for paroxysmal atrial fibrillation, mechanical aortic valve replacement, hyperlipidemia, diabetes, parkinsonism, interstitial lung disease on 2 L nasal cannula at night, lumbar spinal stenosis, and frequent falls; who presented to the ER for multiple concerns, in the setting of feeling short of breath and numerous/frequent falls. Weakness: -Patient with recent and frequent history of falls with recent hospitalization in May; during this admission initial recommendation was for SNF at [facility], however patient declined in favor of returning home -With continued falls, and deterioration of strength concern for patient's continued ability to have long-term success at home -Patient appears to be high risk for traumatic fall given frequency of falls and anticoagulation -PT/OT evaluations ordered -Would anticipate that patient will have consistent requirements given continued decrease in functionality and numerous falls at home, uncertain if family will be able to continue to provide these interventions at home Paroxysmal atrial fibrillation: -History of paroxysmal atrial fibrillation -EKG in ED demonstrating concerns for return of atrial fibrillation without RVR -Continue home warfarin dosing Diabetes: -Known diabetic, last A1c 7.3 on 05/29/2020 -Home regimen including Trulicity, glargine, aspart -Temporarily will hold Trulicity -BSG's ACHS, with SSI and glargine Parkinsonism: -Follows with neurology (Dr. Sheikh) last seen 07/02 was started on Sinemet 0.5 tab 3 times daily -Continue Sinemet Interstitial lung disease: -Oxygen saturations 87% on presentation to ED, with improvement on 2 L NC -Utilizes 2 L NC at night at baseline -Inconsistent utilization of albuterol inhalers at home -Albuterol 2 puffs q4h PRN Chronic anticoagulation with Coumadin: -Restarted on warfarin 7.5 mg nightly following recent pain management procedure -INR on admission 2.9 -Continue to monitor daily Diet: Carb consistent CODE STATUS: Full code DVT prophylaxis: Continue home warfarin (2) Chronic kidney disease, stage 3a: (3) PAF (paroxysmal atrial fibrillation): (4) History of aortic valve replacement: (5) HLD (hyperlipidemia): (6) Diabetes: (7) Parkinsonism: (8) Fall: (9) Interstitial lung disease: History of Present Illness Primary Care Provider: Josh Gaspar MD Xavi Bradford is a 75-year-old male with PMH significant for paroxysmal atrial fibrillation, mechanical aortic valve replacement, hyperlipidemia, diabetes, parkinsonism, interstitial lung disease on 2 L nasal cannula at night, lumbar spinal stenosis, and frequent falls; who presented to the ER for multiple concerns, in the setting of feeling short of breath and numerous/frequent falls. Of note patient was recently in the hospital and discharged on 06/07 following recent fall and hit to the head while on warfarin, patient at that time did not want to go to [facility] out of concern for need for Covid vaccination. Subsequently has received both Covid vaccines over the last month. However of note patient admits to continued frequent falls as he does not feel "strong or steady on my feet"; over this last week patient has had multiple falls including 2 today, these frequently occur with standing and attempting to move with his walker. Over this last month he has not fallen and hit his head, denies any precursor symptoms or changes in vision during these falls. States that they are all because he is just not strong enough since his back has not been able to be fixed. Acknowledges that this is resulted in him frequently skipping meals as he does not feel comfortable/does not want to bother his family members to come take care of him. He regularly takes his medications, but had recently misplaced his inhalers and was unable to find them over the last week. Earlier today he was feeling more short of breath, but was unable to find his inhalers and continue to feel short of breath on Tylenol arrival at the hospital. At the point of this provider's interview, patient was feeling closer back to his normal self. Acknowledges that it might have been a mistake to not go to [place] however he did not want to be away from his family, but recognizes his strength is not improving quickly and likely will not without some help. Allergies Allergy/AdvReac Type Severity Reaction Status Date / Time Iodinated Contrast Media Allergy Severe Anaphylaxis Verified 07/10/20 20:53 shellfish derived Allergy Severe Anaphylaxis Verified 07/10/20 20:53 Tetanus Vaccines and Toxoid Allergy Unknown Unknown Verified 07/10/20 20:53 Home Medications Medication Instructions Recorded Confirmed Type Trulicity 1.5 mg SUBCUT SA 01/20/20 07/10/20 History albuterol sulfate [Ventolin HFA] 2 puff INHALATION Q4H PRN 01/20/20 07/10/20 History allopurinol 200 mg PO HS 01/20/20 07/10/20 History azithromycin 250 mg PO .MOWEFR@QAM 01/20/20 07/10/20 History cholecalciferol (vitamin D3) 2,000 unit PO HS 01/20/20 07/10/20 History [Vitamin D3] finasteride 5 mg PO QAM 01/20/20 07/10/20 History insulin aspart U-100 0 unit SUBCUT ACHS 01/20/20 07/10/20 History ipratropium-albuterol 3 ml INHALATION QID PRN 01/20/20 07/10/20 History nitroglycerin 0.4 mg SUBLINGUAL DIRECTED PRN 01/20/20 07/10/20 History wmbeeho-[id number]-[id number] 1 tab PO HS 02/05/20 07/10/20 History gabapentin 600 mg tablet 600 mg PO BID tab 04/02/20 07/10/20 History levetiracetam 1,000 mg tablet 1,000 mg PO BID 90 Days #180 tab 04/02/20 07/10/20 Rx topiramate 100 mg tablet 100 mg PO BID 30 Days #60 tab 05/17/20 07/10/20 Rx atorvastatin 40 mg PO HS 05/28/20 07/10/20 History carbidopa 25 mg-levodopa 100 mg 0.5 tab PO TID #90 tab 07/02/20 07/10/20 Rx tablet insulin glargine [Lantus Solostar 20 unit SUBCUT BID 07/10/20 07/10/20 History U-100 Insulin] prednisone 10 mg PO DAILY 07/10/20 07/10/20 History Past Med/Surg History Medical History CAD (coronary artery disease) Dehydration Diabetes HLD (hyperlipidemia) Interstitial lung disease Interstitial lung disease due to connective tissue disease Lung nodule Polymyositis Polymyositis Prostate cancer s/p XRT Rheumatoid arthritis Seizure-like activity Stroke-like symptom 12/2019, w/ blurry vision and dysarthria. mild R sided wkness. attending outpatient physical therapy w/ good improvement in strength (5+/5 strength of all 4 extremities as of 05/28/20) Thoracic ascending aortic aneurysm s/p repair Surgical History H/O hernia repair History of aortic valve replacement mechanical History of cholecystectomy History of fusion of cervical spine History of gastric bypass lap band History of heart artery stent History of lung biopsy 2019 History of partial nephrectomy Family History Other Coronary heart disease Rheumatoid arthritis Stroke Social History Smoking Status: Never smoker Second Hand Exposure: No; Hx Alcohol Use: No Hx Substance Use: No Preferred Language: [place] Communication Ability: Effective Hearing Ability: Hard of Hearing Automobile Brakes Bonder Required: No Beliefs That Will Affect Care: None marital status: / Current Living Situation: Alone Current Living Situation Comment: son Other Information That Helps Us Care for You: No Feels Safe at Home: Yes Safety Concerns: Feels Safe At This Time Assistive Devices: Oxygen - at Night Review of Systems Review of Systems: All systems reviewed & are unremarkable except as noted in HPI & below Physical Exam Constitutional: WD/WN, vitals as above Eyes: PERRL, conjunctivae normal, anicteric sclerae ENMT: external ear and nose normal, oropharynx normal Respiratory: normal respiratory effort; no respiratory distress and no labored breathing Auscultation: lungs clear to auscultation bilaterally; no crackles, no rales, no rhonchi and no wheezes Cardiovascular: Rate/Rhythm: + irregularly irregular Heart Sounds: no gallop, no murmur and no cardiac rub Gastrointestinal (Abdomen): normal bowel sounds, soft, nontender, no hepatosplenomegaly Musculoskeletal: no cyanosis or clubbing, extremities motor strength 5/5 Neurologic: PERRL, EOMI, accommodation nl, no face palsy, no dysarthria Psychiatric: Orientation: alert and oriented x 3 Results & Data Results & Data ([facility]) Vital Signs (Past 12 Hours) Vital Signs Temp Pulse Pulse Resp BP Pulse Ox 07/10/20 20:52 61 16 90 07/10/20 19:40 94 07/10/20 19:34 69 22 124/72 97 07/10/20 19:25 24 94 07/10/20 19:21 63 16 98 07/10/20 18:42 36.5 C 81 22 139/78 87 L Laboratory Results 07/10/20 07/10/20 07/10/20 Range/Units 19:26 19:26 19:26 WBC (4.8-10.8) K/uL RBC (4.7-6.1) M/uL Hgb (14.0-18.0) g/dL Hct (42-52) % MCV (80-100) fL MCH (25-34) pg MCHC (32-36) g/dL RDW Std Deviation (36.4-46.3) fL RDW Coeff of Lianne (11.5-14.5) % Plt Count (130-400) K/uL MPV (7.4-10.4) fL Immature Gran % (Auto) % Neut % (Auto) % Lymph % (Auto) % [place] % (Auto) % Eos % (Auto) % Baso % (Auto) % Neut # (Auto) (1.4-6.5) K/uL Lymph # (Auto) (1.2-3.4) K/uL [place] # (Auto) (0.11-0.59) K/uL Eos # (Auto) (0-0.5) K/uL Baso # (Auto) (0-0.2) K/uL Immature Gran # (Auto) (0.00-0.02) K/uL PT 27.2 H (9.0-12.0) Seconds INR 2.9 H (0.9-1.1) APTT 35.3 H (21.0-31.0) Seconds PTT Ratio 1.3 VBG pH 7.35 L (7.36-7.41) VBG pCO2 42 (38-50) mmHg VBG pO2 33 mmHg VBG HCO3 23 mmol/L VBG O2 Saturation < 60.0 % VBG Base Excess -2.6 mEq/L Barometric Pressure 737.1 mm/Hg Sodium (136-145) mmol/L Potassium (3.5-5.1) mmol/L Chloride (98-107) mmol/L Carbon Dioxide (21-32) mmol/L Anion Gap (3-11) BUN (7-18) mg/dl Creatinine (0.6-1.4) mg/dl Est Cr Clr Drug Dosing ml/min Est GFR ( Amer) Est GFR (Non-Af Amer) BUN/Creatinine Ratio (10-20) Glucose (70-99) mg/dl Lactate 1.8 (0.4-2.0) mmol/L Calcium (8.5-10.1) mg/dl Magnesium (1.8-2.4) mg/dl Total Bilirubin (0.2-1) mg/dl AST (15-37) U/L ALT (12-78) U/L Alkaline Phosphatase (45-117) U/L Troponin I (0-0.045) ng/ml Total Protein (6.4-8.2) gm/dl Albumin (3.4-5.0) gm/dl Globulin (2.5-4.0) gm/dl Albumin/Globulin Ratio (0.9-2) Procalcitonin (0-0.5) ng/ml Specimen Hemolysis COVID-19 Eval Order SARS-CoV-2 (PCR) (Negative) Influenza Type A (PCR) (Neg) Influ A Molecular Assay Influenza Type B (PCR) (Neg) Influ B Molecular Assay RSV (RT-PCR) (Neg) RSV (Molecular) 07/10/20 07/10/20 07/10/20 Range/Units 19:24 19:24 19:24 WBC 3.19 L (4.8-10.8) K/uL RBC 4.02 L (4.7-6.1) M/uL Hgb 11.2 L (14.0-18.0) g/dL Hct 34.2 L (42-52) % MCV 85.1 (80-100) fL MCH 27.9 (25-34) pg MCHC 32.7 (32-36) g/dL RDW Std Deviation 48.6 H (36.4-46.3) fL RDW Coeff of Lianne 15.5 H (11.5-14.5) % Plt Count 155 (130-400) K/uL MPV 10.3 (7.4-10.4) fL Immature Gran % (Auto) 0.3 % Neut % (Auto) 75.5 % Lymph % (Auto) 17.6 % [place] % (Auto) 4.4 % Eos % (Auto) 1.9 % Baso % (Auto) 0.3 % Neut # (Auto) 2.41 (1.4-6.5) K/uL Lymph # (Auto) 0.56 L (1.2-3.4) K/uL [place] # (Auto) 0.14 (0.11-0.59) K/uL Eos # (Auto) 0.06 (0-0.5) K/uL Baso # (Auto) 0.01 (0-0.2) K/uL Immature Gran # (Auto) 0.01 (0.00-0.02) K/uL PT (9.0-12.0) Seconds INR (0.9-1.1) APTT (21.0-31.0) Seconds PTT Ratio VBG pH (7.36-7.41) VBG pCO2 (38-50) mmHg VBG pO2 mmHg VBG HCO3 mmol/L VBG O2 Saturation % VBG Base Excess mEq/L Barometric Pressure mm/Hg Sodium 139 (136-145) mmol/L Potassium 4.7 (3.5-5.1) mmol/L Chloride 111 H (98-107) mmol/L Carbon Dioxide 23 (21-32) mmol/L Anion Gap 5.0 (3-11) BUN 26 H (7-18) mg/dl Creatinine 1.32 (0.6-1.4) mg/dl Est Cr Clr Drug Dosing 63.6 ml/min Est GFR ( Amer) 60.7 Est GFR (Non-Af Amer) 52.4 BUN/Creatinine Ratio 20.0 (10-20) Glucose 233 H (70-99) mg/dl Lactate (0.4-2.0) mmol/L Calcium 8.8 (8.5-10.1) mg/dl Magnesium 2.1 (1.8-2.4) mg/dl Total Bilirubin 0.4 (0.2-1) mg/dl AST 29 (15-37) U/L ALT 41 (12-78) U/L Alkaline Phosphatase 67 (45-117) U/L Troponin I < 0.015 (0-0.045) ng/ml Total Protein 6.0 L (6.4-8.2) gm/dl Albumin 3.1 L (3.4-5.0) gm/dl Globulin 2.9 (2.5-4.0) gm/dl Albumin/Globulin Ratio 1.1 (0.9-2) Procalcitonin 0.39 (0-0.5) ng/ml Specimen Hemolysis COVID-19 Eval Order SARS-CoV-2 (PCR) (Negative) Influenza Type A (PCR) (Neg) Influ A Molecular Assay Influenza Type B (PCR) (Neg) Influ B Molecular Assay RSV (RT-PCR) (Neg) RSV (Molecular) 07/10/20 07/10/20 07/10/20 Range/Units 19:11 19:11 19:11 WBC (4.8-10.8) K/uL RBC (4.7-6.1) M/uL Hgb (14.0-18.0) g/dL Hct (42-52) % MCV (80-100) fL MCH (25-34) pg MCHC (32-36) g/dL RDW Std Deviation (36.4-46.3) fL RDW Coeff of Lianne (11.5-14.5) % Plt Count (130-400) K/uL MPV (7.4-10.4) fL Immature Gran % (Auto) % Neut % (Auto) % Lymph % (Auto) % [place] % (Auto) % Eos % (Auto) % Baso % (Auto) % Neut # (Auto) (1.4-6.5) K/uL Lymph # (Auto) (1.2-3.4) K/uL [place] # (Auto) (0.11-0.59) K/uL Eos # (Auto) (0-0.5) K/uL Baso # (Auto) (0-0.2) K/uL Immature Gran # (Auto) (0.00-0.02) K/uL PT (9.0-12.0) Seconds INR (0.9-1.1) APTT (21.0-31.0) Seconds PTT Ratio VBG pH (7.36-7.41) VBG pCO2 (38-50) mmHg VBG pO2 mmHg VBG HCO3 mmol/L VBG O2 Saturation % VBG Base Excess mEq/L Barometric Pressure mm/Hg Sodium (136-145) mmol/L Potassium (3.5-5.1) mmol/L Chloride (98-107) mmol/L Carbon Dioxide (21-32) mmol/L Anion Gap (3-11) BUN (7-18) mg/dl Creatinine (0.6-1.4) mg/dl Est Cr Clr Drug Dosing ml/min Est GFR ( Amer) Est GFR (Non-Af Amer) BUN/Creatinine Ratio (10-20) Glucose (70-99) mg/dl Lactate (0.4-2.0) mmol/L Calcium (8.5-10.1) mg/dl Magnesium (1.8-2.4) mg/dl Total Bilirubin (0.2-1) mg/dl AST (15-37) U/L ALT (12-78) U/L Alkaline Phosphatase (45-117) U/L Troponin I (0-0.045) ng/ml Total Protein (6.4-8.2) gm/dl Albumin (3.4-5.0) gm/dl Globulin (2.5-4.0) gm/dl Albumin/Globulin Ratio (0.9-2) Procalcitonin (0-0.5) ng/ml Specimen Hemolysis COVID-19 Eval Order CovFluRsv at [facility] SARS-CoV-2 (PCR) NEGATIVE (Negative) Influenza Type A (PCR) Negative (Neg) Influ A Molecular Assay Cancelled Influenza Type B (PCR) Negative (Neg) Influ B Molecular Assay Cancelled RSV (RT-PCR) Negative (Neg) RSV (Molecular) Cancelled Supervising Physician Co-Signing Physician Notes Attending addendum: I have physically seen this patient, have supervised the medical residents activities, and agree with the H&P unless as otherwise noted. Assessment and Plan: Progressive generalized weakness- During admission in May, patient was advised to go to a SNF in [facility], etc., patient returned home. Patient is aware that at this point that would be the recommendation again due to his increasing frequency of falls and greater chance of self harm with falls. Consult PT/OT and social work coordinator Paroxysmal atrial fibrillation- Patient has been on warfarin at home, with INR 2.9 upon admission. With increasing frequency of falls, and increasing risk for intracranial bleeding, if patient does not agree to a SNF, would recommend strongly reconsidering anticoagulation in this patient Diabetes mellitus- Hold Trulicity Continue insulin glargine 20 and subcu twice daily Placed on Accu-Cheks before meals and at bedtime with NovoLog coverage per scale Remaining orders and notations as noted Resident Activity Tracking Resident Involvement: Resident Care Provided Care Provided: Adult Hospital Medicine (1) Diabetes Diabetes mellitus complication detail: with polyneuropathy Diabetes mellitus complication status: with neurologic complications 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
[2020-07-10] MEDS ORDERED: GLUCAGON FOR INJ 1 MG VIAL SQ PRN (22:29)
[2020-07-10] MEDS ORDERED: CARBOHYDRATES FOR HYPOGLYCEMIA PO PRN (22:29)
[2020-07-10] MEDS ORDERED: DEXTROSE 50% 50 ML SYRINGE IV PRN (22:29)
[2020-07-10] MEDS ORDERED: ALBUTEROL HFA 8 GM INHALER INH PRN (22:29)
[2020-07-10] MEDS ORDERED: ALUMINUM/MAGNESIUM SUSP 30 ML UDC PO PRN (22:29)
[2020-07-10] MEDS ORDERED: GLUCOSE 40% GEL 15 GM TUBE PO PRN (22:29)
[2020-07-10] MEDS ORDERED: GLUCOSE 10 TABS/TUBE PO PRN (22:29)
[2020-07-10] MEDS: INSULIN ASPART 100 UNITS/ML 3 ML PEN SC SCH (23:27)
[2020-07-10] MEDS: INSULIN GLARGINE SOLOSTAR 100 UNITS/ML 3 ML PEN SC SCH (23:28)
--- NOTE | 2020-07-10 23:55 | Emergency Department Note ---
History of Present Illness General Chief complaint: Shortness of Breath/Dyspnea Stated complaint: CONGESTION, SOB, LOW PULSE OX Time Seen by Provider: 07/10/20 18:48 History of Present Illness Provider complaint: Shortness of breath Onset (ago): day(s) 2 Maximum Pain Intensity: 4 Associated symptoms: + shortness of breath; no chest pain and no fever/chills 75-year-old male with history of Parkinson's disease presents emergency department for shortness of breath. Patient reports over the last 2 days he has been increasingly short of breath. He states he has home pulse oximeter and he put on his pulse oximeter today and he was in the 80s on room air. Patient does state he wears oxygen but only at night. He states he never wears it in the daytime. Patient became concerned about his low's oxygen saturation and called EMS. Patient denies any chest pain. He denies any fevers. He does report falling recently and the patient is on Coumadin. Home Medications Medication Instructions Recorded Confirmed Type Trulicity 1.5 mg SUBCUT SA 01/20/20 07/10/20 History albuterol sulfate [Ventolin HFA] 2 puff INHALATION Q4H PRN 01/20/20 07/10/20 History allopurinol 200 mg PO HS 01/20/20 07/10/20 History azithromycin 250 mg PO .[email or web address] 01/20/20 07/10/20 History cholecalciferol (vitamin D3) 2,000 unit PO HS 01/20/20 07/10/20 History [Vitamin D3] finasteride 5 mg PO [facility] 01/20/20 07/10/20 History insulin aspart U-100 0 unit SUBCUT [facility] 01/20/20 07/10/20 History ipratropium-albuterol 3 ml INHALATION QID PRN 01/20/20 07/10/20 History nitroglycerin 0.4 mg SUBLINGUAL DIRECTED PRN 01/20/20 07/10/20 History dezzixo-bxqvigqjk-kmiy 1 tab PO HS 02/05/20 07/10/20 History gabapentin 600 mg tablet 600 mg PO BID tab 04/02/20 07/10/20 History levetiracetam 1,000 mg tablet 1,000 mg PO BID 90 Days #180 tab 12/04/20 03/13/21 Rx topiramate 100 mg tablet 100 mg PO BID 30 Days #60 tab 05/17/20 07/10/20 Rx atorvastatin 40 mg PO HS 05/28/20 07/10/20 History carbidopa 25 mg-levodopa 100 mg 0.5 tab PO TID #90 tab 07/02/20 07/10/20 Rx tablet insulin glargine [Lantus Solostar 20 unit SUBCUT BID 07/10/20 07/10/20 History U-100 Insulin] prednisone 10 mg PO DAILY 07/10/20 07/10/20 History Allergies Allergy/AdvReac Type Severity Reaction Status Date / Time Iodinated Contrast Media Allergy Severe Anaphylaxis Verified 07/10/20 20:53 shellfish derived Allergy Severe Anaphylaxis Verified 07/10/20 20:53 Tetanus Vaccines and Toxoid Allergy Unknown Unknown Verified 07/10/20 20:53 Past Med/Surg History Medical History CAD (coronary artery disease) Dehydration Diabetes HLD (hyperlipidemia) Interstitial lung disease Interstitial lung disease due to connective tissue disease Lung nodule Polymyositis Polymyositis Prostate cancer s/p XRT Rheumatoid arthritis Seizure-like activity Stroke-like symptom 12/2019, w/ blurry vision and dysarthria. mild R sided wkness. attending outpatient physical therapy w/ good improvement in strength (5+/5 strength of all 4 extremities as of 05/28/20) Thoracic ascending aortic aneurysm s/p repair Surgical History H/O hernia repair History of aortic valve replacement mechanical History of cholecystectomy History of fusion of cervical spine History of gastric bypass lap band History of heart artery stent History of lung biopsy 2019 History of partial nephrectomy Family History Other Coronary heart disease Rheumatoid arthritis Stroke Social History Smoking Status: Never smoker Second Hand Exposure: No; Hx Alcohol Use: No Hx Substance Use: No Preferred Language: Israeli Communication Ability: Effective Hearing Ability: Hard of Hearing Licensed Nuclear [employer] Room Operator Required: No Beliefs That Will Affect Care: None marital status: / Current Living Situation: Family Current Living Situation Comment: son Feels Safe at Home: Yes Assistive Devices: Glasses, Hearing Aid - Bilateral, Oxygen - at Night and Walker Review of Systems A total of 10 systems reviewed and were otherwise negative Physical Exam Vital Signs Vital Signs - 24 hr 07/10/20 18:42 07/10/20 19:21 07/10/20 19:25 Temperature 36.5 C Temperature Source Oral Pulse Rate 81 Pulse Rate [Right Radial] 63 Pulse Rate from SpO2 Sensor Respiratory Rate 22 16 24 Respiratory Effort / Characteristics Non-Labored Spontaneous Spontaneous Short of Breath SOB on Exertion Respiratory Pattern Blood Pressure 139/78 Blood Pressure Mean 98 Blood Pressure Position Sitting Pulse Oximetry 87 L 98 94 Oxygen Delivery Method Room Air Nasal Cannula Nasal Cannula Oxygen Flow Rate 3 2 Sepsis Recent Fever Within 48 Hours No Sepsis New/Unexplained Change in Mental Status No Sepsis Action Taken by Nursing No Action Required 07/10/20 19:34 07/10/20 19:40 07/10/20 19:45 Temperature Temperature Source Pulse Rate 69 Pulse Rate [Right Radial] Pulse Rate from SpO2 Sensor 66 Respiratory Rate 22 Respiratory Effort / Characteristics Spontaneous Short of Breath SOB on Exertion Respiratory Pattern Regular Blood Pressure 124/72 Blood Pressure Mean 89 Blood Pressure Position Pulse Oximetry 97 94 Oxygen Delivery Method Nasal Cannula Nasal Cannula Nasal Cannula Oxygen Flow Rate 2 2 2 Sepsis Recent Fever Within 48 Hours Sepsis New/Unexplained Change in Mental Status Sepsis Action Taken by Nursing 07/10/20 20:52 07/10/20 21:38 Temperature Temperature Source Pulse Rate 64 Pulse Rate [Right Radial] 61 Pulse Rate from SpO2 Sensor 67 Respiratory Rate 16 17 Respiratory Effort / Characteristics Non-Labored Spontaneous Respiratory Pattern Blood Pressure 124/72 Blood Pressure Mean 89 Blood Pressure Position Pulse Oximetry 90 95 Oxygen Delivery Method Room Air Nasal Cannula Oxygen Flow Rate 2 Sepsis Recent Fever Within 48 Hours Sepsis New/Unexplained Change in Mental Status Sepsis Action Taken by Nursing Physical Exam GENERAL: He is oriented to person, place, and time. He appears well-developed and well-nourished. He does not appear distressed. HENT: Exam performed. - Head: Normocephalic and atraumatic. - Right Ear: External ear normal. No mastoid tenderness. - Left Ear: External ear normal. No mastoid tenderness. - Mouth/Throat: The oropharynx is clear and moist. No trismus in the jaw. No dental abscesses or uvula swelling. No oropharyngeal exudate or tonsillar abscesses. EYES: Conjunctivae and EOM are normal. Pupils are equal, round, and reactive to light. Right eye exhibits no discharge. Left eye exhibits no discharge. No scleral icterus. NECK: Normal range of motion. Neck supple. No JVD present. No spinous process tenderness present. No carotid bruit present. No rigidity. No tracheal deviation and normal range of motion present. No Brudzinski's sign and no Kernig's sign noted. CV: Normal rate, regular rhythm, normal heart sounds and intact distal pulses. There is no peripheral edema. Palpable radial pulses bue. PULM/CHEST: Effort normal and breath sounds normal. No respiratory distress. No stridor. He has no wheezes. He has no rales. - Chest Wall: He exhibits no tenderness. ABD: The abdomen is soft. Bowel sounds are normal. He has no distension. No mass is present. There is no tenderness. There is no rebound, no guarding, no Yi's sign and no tenderness at McBurney's point. Rovsig negative. MUSC/SKEL: Normal range of motion. There is no peripheral edema, tenderness or deformity. LYMPH: No cervical adenopathy. NEURO: Motor and sensation grossly intact. SKIN: Skin is warm and dry. He is not diaphoretic. PSYCH: He has a normal mood and affect. Behavior is normal. Judgment and thought content normal. Course Course 1847: The patient was evaluated in room C3. A complete history and physical exam was performed Cardiac monitoring: An order was placed for continuous cardiac monitoring. The monitor shows a rate of 70 with sinus rhythm Patient was placed on pulse oximeter and found to be 87% on room air. Patient was made was placed on supplemental oxygen via nasal cannula which improved his oxygen saturation. 2030: Vital signs stable. Imaging shows no acute traumatic injury. Labs are within normal limits including a therapeutic INR. Patient is tolerating supplemental oxygen well via nasal cannula. Patient will be admitted to the [facility] service Dr. Ng will be notified. Administered Medications Insulin Aspart (Insulin Aspart 100 Units/Ml 3 Ml Pen) 0 units SC ACHS KIRSTEN Stop: 08/09/20 22:44 Last Admin: 07/10/20 23:27 Dose: 6 units Documented by: [id number] Cosigned by: [id number] Insulin Glargine (Insulin Glargine Solostar 100 Units/Ml 3 Ml Pen) 20 units SC BID KIRSTEN Stop: 08/09/20 22:44 Last Admin: 07/10/20 23:28 Dose: 20 units Documented by: [id number] Cosigned by: [id number] Discontinued Medications Albuterol (Albut/Ipratrop 3mg/0.5mg Neb 3 Ml Vial) 3 ml NEB NOW STA Stop: 07/10/20 19:02 Last Admin: 07/10/20 19:19 Dose: 3 ml Documented by: [id number] Albuterol (Albut/Ipratrop 3mg/0.5mg Neb 3 Ml Vial) 3 ml NEB NOW STA Stop: 07/10/20 20:41 Last Admin: 07/10/20 20:51 Dose: 3 ml Documented by: [id number] Dexamethasone (Dexamethasone Sod Inj 10 Mg/Ml Vial) 6 mg IV NOW ONE Stop: 07/10/20 19:02 Last Admin: 07/10/20 19:27 Dose: 6 mg Documented by: [id number] Critical Care Time Critical Care Time: Yes Total Critical Care Time: 58 I have personally spent greater than 58 minutes of critical care time in the direct management of this patient. This includes bedside care, interpretation of diagnostic studies, and testing, discussion with consultants, patient, and family members, and other required patient management activities. This 58 minutes is in excess of all separately billable procedures. Medical Decision Making Laboratory Data Result diagrams: 07/10/20 19:24 07/10/20 19:24 Lab Results 07/10/20 07/10/20 07/10/20 Range/Units 19:11 19:11 19:11 WBC (4.8-10.8) K/uL RBC (4.7-6.1) M/uL Hgb (14.0-18.0) g/dL Hct (42-52) % MCV (80-100) fL MCH (25-34) pg MCHC (32-36) g/dL RDW Std Deviation (36.4-46.3) fL RDW Coeff of Lianne (11.5-14.5) % Plt Count (130-400) K/uL MPV (7.4-10.4) fL Immature Gran % (Auto) % Neut % (Auto) % Lymph % (Auto) % [place] % (Auto) % Eos % (Auto) % Baso % (Auto) % Neut # (Auto) (1.4-6.5) K/uL Lymph # (Auto) (1.2-3.4) K/uL [place] # (Auto) (0.11-0.59) K/uL Eos # (Auto) (0-0.5) K/uL Baso # (Auto) (0-0.2) K/uL Immature Gran # (Auto) (0.00-0.02) K/uL PT (9.0-12.0) Seconds INR (0.9-1.1) APTT (21.0-31.0) Seconds PTT Ratio VBG pH (7.36-7.41) VBG pCO2 (38-50) mmHg VBG pO2 mmHg VBG HCO3 mmol/L VBG O2 Saturation % VBG Base Excess mEq/L Barometric Pressure mm/Hg Sodium (136-145) mmol/L Potassium (3.5-5.1) mmol/L Chloride (98-107) mmol/L Carbon Dioxide (21-32) mmol/L Anion Gap (3-11) BUN (7-18) mg/dl Creatinine (0.6-1.4) mg/dl Est Cr Clr Drug Dosing ml/min Est GFR ( Amer) Est GFR (Non-Af Amer) BUN/Creatinine Ratio (10-20) Glucose (70-99) mg/dl Lactate (0.4-2.0) mmol/L Calcium (8.5-10.1) mg/dl Magnesium (1.8-2.4) mg/dl Total Bilirubin (0.2-1) mg/dl AST (15-37) U/L ALT (12-78) U/L Alkaline Phosphatase (45-117) U/L Troponin I (0-0.045) ng/ml Total Protein (6.4-8.2) gm/dl Albumin (3.4-5.0) gm/dl Globulin (2.5-4.0) gm/dl Albumin/Globulin Ratio (0.9-2) Procalcitonin (0-0.5) ng/ml Specimen Hemolysis COVID-19 Eval Order CovFluRsv at [facility] SARS-CoV-2 (PCR) NEGATIVE (Negative) Influenza Type A (PCR) Negative (Neg) Influ A Molecular Assay Cancelled Influenza Type B (PCR) Negative (Neg) Influ B Molecular Assay Cancelled RSV (RT-PCR) Negative (Neg) RSV (Molecular) Cancelled 07/10/20 07/10/20 07/10/20 Range/Units 19:24 19:24 19:24 WBC 3.19 L (4.8-10.8) K/uL RBC 4.02 L (4.7-6.1) M/uL Hgb 11.2 L (14.0-18.0) g/dL Hct 34.2 L (42-52) % MCV 85.1 (80-100) fL MCH 27.9 (25-34) pg MCHC 32.7 (32-36) g/dL RDW Std Deviation 48.6 H (36.4-46.3) fL RDW Coeff of Lianne 15.5 H (11.5-14.5) % Plt Count 155 (130-400) K/uL MPV 10.3 (7.4-10.4) fL Immature Gran % (Auto) 0.3 % Neut % (Auto) 75.5 % Lymph % (Auto) 17.6 % [place] % (Auto) 4.4 % Eos % (Auto) 1.9 % Baso % (Auto) 0.3 % Neut # (Auto) 2.41 (1.4-6.5) K/uL Lymph # (Auto) 0.56 L (1.2-3.4) K/uL [place] # (Auto) 0.14 (0.11-0.59) K/uL Eos # (Auto) 0.06 (0-0.5) K/uL Baso # (Auto) 0.01 (0-0.2) K/uL Immature Gran # (Auto) 0.01 (0.00-0.02) K/uL PT (9.0-12.0) Seconds INR (0.9-1.1) APTT (21.0-31.0) Seconds PTT Ratio VBG pH (7.36-7.41) VBG pCO2 (38-50) mmHg VBG pO2 mmHg VBG HCO3 mmol/L VBG O2 Saturation % VBG Base Excess mEq/L Barometric Pressure mm/Hg Sodium 139 (136-145) mmol/L Potassium 4.7 (3.5-5.1) mmol/L Chloride 111 H (98-107) mmol/L Carbon Dioxide 23 (21-32) mmol/L Anion Gap 5.0 (3-11) BUN 26 H (7-18) mg/dl Creatinine 1.32 (0.6-1.4) mg/dl Est Cr Clr Drug Dosing 63.6 ml/min Est GFR ( Amer) 60.7 Est GFR (Non-Af Amer) 52.4 BUN/Creatinine Ratio 20.0 (10-20) Glucose 233 H (70-99) mg/dl Lactate (0.4-2.0) mmol/L Calcium 8.8 (8.5-10.1) mg/dl Magnesium 2.1 (1.8-2.4) mg/dl Total Bilirubin 0.4 (0.2-1) mg/dl AST 29 (15-37) U/L ALT 41 (12-78) U/L Alkaline Phosphatase 67 (45-117) U/L Troponin I < 0.015 (0-0.045) ng/ml Total Protein 6.0 L (6.4-8.2) gm/dl Albumin 3.1 L (3.4-5.0) gm/dl Globulin 2.9 (2.5-4.0) gm/dl Albumin/Globulin Ratio 1.1 (0.9-2) Procalcitonin 0.39 (0-0.5) ng/ml Specimen Hemolysis COVID-19 Eval Order SARS-CoV-2 (PCR) (Negative) Influenza Type A (PCR) (Neg) Influ A Molecular Assay Influenza Type B (PCR) (Neg) Influ B Molecular Assay RSV (RT-PCR) (Neg) RSV (Molecular) 07/10/20 07/10/20 07/10/20 Range/Units 19:26 19:26 19:26 WBC (4.8-10.8) K/uL RBC (4.7-6.1) M/uL Hgb (14.0-18.0) g/dL Hct (42-52) % MCV (80-100) fL MCH (25-34) pg MCHC (32-36) g/dL RDW Std Deviation (36.4-46.3) fL RDW Coeff of Lianne (11.5-14.5) % Plt Count (130-400) K/uL MPV (7.4-10.4) fL Immature Gran % (Auto) % Neut % (Auto) % Lymph % (Auto) % [place] % (Auto) % Eos % (Auto) % Baso % (Auto) % Neut # (Auto) (1.4-6.5) K/uL Lymph # (Auto) (1.2-3.4) K/uL [place] # (Auto) (0.11-0.59) K/uL Eos # (Auto) (0-0.5) K/uL Baso # (Auto) (0-0.2) K/uL Immature Gran # (Auto) (0.00-0.02) K/uL PT 27.2 H (9.0-12.0) Seconds INR 2.9 H (0.9-1.1) APTT 35.3 H (21.0-31.0) Seconds PTT Ratio 1.3 VBG pH 7.35 L (7.36-7.41) VBG pCO2 42 (38-50) mmHg VBG pO2 33 mmHg VBG HCO3 23 mmol/L VBG O2 Saturation < 60.0 % VBG Base Excess -2.6 mEq/L Barometric Pressure 737.1 mm/Hg Sodium (136-145) mmol/L Potassium (3.5-5.1) mmol/L Chloride (98-107) mmol/L Carbon Dioxide (21-32) mmol/L Anion Gap (3-11) BUN (7-18) mg/dl Creatinine (0.6-1.4) mg/dl Est Cr Clr Drug Dosing ml/min Est GFR ( Amer) Est GFR (Non-Af Amer) BUN/Creatinine Ratio (10-20) Glucose (70-99) mg/dl Lactate 1.8 (0.4-2.0) mmol/L Calcium (8.5-10.1) mg/dl Magnesium (1.8-2.4) mg/dl Total Bilirubin (0.2-1) mg/dl AST (15-37) U/L ALT (12-78) U/L Alkaline Phosphatase (45-117) U/L Troponin I (0-0.045) ng/ml Total Protein (6.4-8.2) gm/dl Albumin (3.4-5.0) gm/dl Globulin (2.5-4.0) gm/dl Albumin/Globulin Ratio (0.9-2) Procalcitonin (0-0.5) ng/ml Specimen Hemolysis COVID-19 Eval Order SARS-CoV-2 (PCR) (Negative) Influenza Type A (PCR) (Neg) Influ A Molecular Assay Influenza Type B (PCR) (Neg) Influ B Molecular Assay RSV (RT-PCR) (Neg) RSV (Molecular) Imaging Data Radiologist's Impression: CT head/brain wo con CLINICAL HISTORY: 75 years-old Male with fall on coumadin. Acute head injury status post fall TECHNIQUE: Multiple axial CT images of the head were obtained without contrast. A dose lowering technique was utilized adhering to the principles of ALARA. CT DOSE: 2815.94 mGy.cm COMPARISON: Head CT 05/28/2020 FINDINGS: No acute intracranial hemorrhage, midline shift, intracranial mass, hydrocephalus, territorial ischemia or abnormal extra-axial collection. Age- related involutional changes. White matter hypodensities suggest chronic microvascular ischemic disease. Cerebral vascular calcifications. The calvarium is intact. Prior bilateral lens replacement. Small right and large left mastoid effusions unchanged. Paranasal sinuses are generally clear. IMPRESSION: No acute intracranial abnormality. ACT 112: Negative or not required by law. The above report was generated using voice recognition software. It may contain grammatical, syntax or spelling errors. Electronically signed by: Terry Orozco M.D. 07/10/2020 7:54 PM Dictated: 07/10/201951Transcribed: 07/10/201951 CT cervical spine wo con CLINICAL HISTORY: 75 years-old Male with fall on coumadin. Acute head and neck injury status post fall COMPARISON: Head CT of same day TECHNIQUE: Multiple axial CT images of the cervical spine were obtained without contrast. A dose lowering technique was utilized adhering to the principles of ALARA. FINDINGS: Discectomy changes with anterior plate and screw fusion at C4-C5. Greater than 80% fusion of the vertebral bodies. Posterior spondylitic spurring with ossification of the posterior longitudinal ligament at this level are noted. Mild to moderate disc space narrowing at C5-C6. Degenerative bony fusion of the left facets at C2-C3. No acute fracture or subluxation. Evaluation of the central canal or neuroforamina is better assessed by MRI. Multilevel foraminal narrowing. Left greater than right mastoid effusions. Lung apices are clear. Prior median sternotomy. Calcified plaque of the carotid bulbs. IMPRESSION: No acute fracture or subluxation. ACT 112: Negative or not required by law. The above report was generated using voice recognition software. It may contain grammatical, syntax or spelling errors. Electronically signed by: Terry Orozco M.D. 07/10/2020 8:02 PM Dictated: 07/10/201953Transcribed: 07/10/201953 ABDOMEN AND PELVIS CT WITHOUT CONTRAST HISTORY: Acute abdominal trauma status post fall fall on coumadin TECHNIQUE: Multiaxial CT images of the abdomen and pelvis were performed without contrast. A dose lowering technique was utilized adhering to the principles of ALARA. COMPARISON STUDY: CT abdomen and pelvis 01/25/2020 FINDINGS: Prior median sternotomy. Coronary artery calcifications. Unchanged pleural parenchymal scarring of the basal right lower lobe. Chronic bibasilar centrilobular groundglass opacities. There is no pneumatosis or pneumoperitoneum. The unenhanced spleen, mildly atrophic pancreas and adrenal glands are unremarkable. Cholecystectomy. Unremarkable liver. Gastric lap band is in place. Mild nonspecific bilateral perinephric stranding. There are a few ill-defined subcentimeter areas of probable calcification involving the bilateral kidneys. Possible punctate nonobstructing calculus of the superior saima e left kidney. No ureteral calculi or obstructive uropathy. Unremarkable urinary bladder. Brachytherapy seeds of the prostate. Calcified plaque the abdominal aorta. There is no adenopathy. Prior right-sided inguinal hernia repair. There is no bowel obstruction or bowel wall thickening. Colonic diverticulosis. The appendix is reportedly surgically absent. No ascites or retroperitoneal hematoma. Prior ventral abdominal wall herniorrhaphy. Laminectomy changes are noted at L3-L4. No acute fracture. IMPRESSION: 1. No acute posttraumatic intra-abdominal or intrapelvic abnormality. 2. No acute fracture. 3. Chronic left greater than right bibasilar centrilobular and groundglass opacities suggestive of an infectious or inflammatory pneumonitis. 4. No bowel obstruction. 5. Appendectomy and cholecystectomy with gastric lap band in place. 6. Additional findings as above. ACT 112: Negative or not required by law. The above report was generated using voice recognition software. It may contain grammatical, syntax or spelling errors. Electronically signed by: Terry Orozco M.D. 07/10/2020 8:11 PM Dictated: 07/10/202002Transcribed: 07/10/202002 XR chest 1V portable HISTORY: 75 years-old Male SEPSIS acute sepsis with shortness of breath COMPARISON: Chest radiograph 06/04/2020 TECHNIQUE: Portable AP view of the chest FINDINGS: Cardiac silhouette is enlarged. Prior median sternotomy. Surgical suture material projects over the left lung base. Unchanged blunting of the costo phrenic angles. Pulmonary vascular congestion without pneumothorax. Mild left greater than right bibasilar opacities. Degenerative changes of the shoulders and spine. IMPRESSION: 1. Cardiomegaly with pulmonary vascular congestion. 2. Mild left greater than right bibasilar opacities suggest atelectasis versus pneumonitis. ACT 112: Negative or not required by law. The above report was generated using voice recognition software. It may contain grammatical, syntax or spelling errors. Electronically signed by: Terry Orozco M.D. 07/10/2020 7:17 PM Dictated: 07/10/201915Transcribed: 07/10/201915 ECG Data Indication: + SOB/dyspnea Rate (beats per minute): 68 Rhythm: + normal sinus ECG Intervals/blocks: + Normal QRS, + Normal IN and + Normal QT-c ECG ST segments: + Normal ST segments MDM Narrative 1848: The patient was evaluated in room C3. A complete history and physical exam was performed Cardiac monitoring: An order was placed for continuous cardiac monitoring. The monitor shows a rate of 70 with sinus rhythm Patient was placed on pulse oximeter and found to be 87% on room air. Patient was made was placed on supplemental oxygen via nasal cannula which improved his oxygen saturation. 2030: Vital signs stable. Imaging shows no acute traumatic injury. Labs are within normal limits including a therapeutic INR. Patient is tolerating supplemental oxygen well via nasal cannula. Patient will be admitted to the [facility] service Dr. Ng will be notified. Impression & Plan Hypoxia Discharge Plan Visit Data Chief Complaint: Shortness of Breath/Dyspnea Stated Complaint: CONGESTION, SOB, LOW PULSE OX ED Provider: Camacho Theodore Discharge Problem: Hypoxia Patient Disposition: Admitted As Inpatient Discharge Instructions Interventions: ED Discharge Assessment Last Done: 07/10/20 22:15
[2020-07-11 06:13] LABS: Eosinophils # (auto) 0.01 K/uL (0-0.5); Eosinophils % (auto) 0.2 %; Hematocrit (blood only) 34.9 % (42-52); Hemoglobin 11.4 g/dL (14.0-18.0); Immature Granulocytes # (auto) 0.01 K/uL (0.00-0.02); Immature Granulocytes % (auto) 0.2 %; Lymphocytes # (auto) 0.41 K/uL (1.2-3.4); Mean Corpuscular Hemoglobin 27.9 pg (25-34); Mean Corpuscular Hgb Conc 32.7 g/dL (32-36); Mean Corpuscular Volume 85.5 fL (80-100); Mean Platelet Volume 9.4 fL (7.4-10.4); Monocytes # (auto) 0.15 K/uL (0.11-0.59); Monocytes % (auto) 2.6 %; Neutrophils # (auto) 5.26 K/uL (1.4-6.5); Platelet Count 170 K/uL (130-400); RDW Coefficient of Variation 15.3 % (11.5-14.5); RDW Standard Deviation 48.3 fL (36.4-46.3); Red Blood Count 4.08 M/uL (4.7-6.1); White Blood Count 5.84 K/uL (4.8-10.8)
[2020-07-11 06:18] LABS: Appearance Urine Clear (Clear); Bilirubin Urine Negative (Negative); Blood Urine Negative (Negative); Color Urine Yellow; Glucose Urine UA Negative (Negative); Ketones Urine Negative (Negative); Leukocyte Esterase Urine Negative (Negative); Nitrite Urine Negative (Negative); Protein Urine Negative (Negative); Specific Gravity Urine 1.023 (1.000-1.030); Urobilinogen Urine Negative (Negative)
[2020-07-11 06:22] LABS: Prothrombin Time 28.1 Seconds (9.0-12.0)
[2020-07-11 06:50] LABS: BUN Creatinine Ratio 17.8 (10-20); Calcium 9.2 mg/dl (8.5-10.1); Creatinine Clr Calc Pharmacy 54.3 ml/min; Est GFR (African American) 57.6; Est GFR (Non-African American) 49.7; Magnesium 2.2 mg/dl (1.8-2.4); Phosphorus 3.6 mg/dl (2.5-4.9); Potassium 4.2 mmol/L (3.5-5.1)
--- NOTE | 2020-07-11 07:36 | Hospitalist Progress Note ---
Date of Service July 11, 2020 Assessment & Plan (1) Weakness: Xavi Bradford is a 75-year-old male with PMH significant for paroxysmal atrial fibrillation, mechanical aortic valve replacement, hyperlipidemia, diabetes, parkinsonism, interstitial lung disease on 2 L nasal cannula at night, lumbar spinal stenosis, and frequent falls; who presented to the ER for multiple concerns, in the setting of feeling short of breath and numerous/frequent falls. Weakness: -Patient with recent and frequent history of falls with recent hospitalization in May; during this admission initial recommendation was for SNF at [facility], however patient declined in favor of returning home -Patient states he follows with Dr. Agarwal. Did have a back injection which helped for 2 days but then failed. He states Dr. Agarwal is considering surgery. Most recent MRI we have on file is from 05/30/2020 it is as follows IMPRESSION: 1. No significant change in appearance of the lumbar spine since MRI of January 21, 2020. Status post L2-L4 laminectomy. No central canal stenosis. 2. Moderate to severe multilevel neural foraminal stenosis, most pronounced at the left L3-L4 and bilateral L5-S1 neural foramen 3. No lumbar spine fracture. 4. Moderate multilevel degenerative disc disease. Severe multilevel facet arthrosis. -PT/OT evaluations ordered -Would consult Dr. Agarwal CT abdomen pelvis 07/10/20 IMPRESSION: 1. No acute posttraumatic intra-abdominal or intrapelvic abnormality. 2. No acute fracture. 3. Chronic left greater than right bibasilar centrilobular and groundglass opacities suggestive of an infectious or inflammatory pneumonitis. 4. No bowel obstruction. 5. Appendectomy and cholecystectomy with gastric lap band in place. (2) Chronic kidney disease, stage 3a: (3) PAF (paroxysmal atrial fibrillation): Paroxysmal atrial fibrillation: -History of paroxysmal atrial fibrillation -EKG in ED demonstrating concerns for return of atrial fibrillation without RVR -not on any rate controlling medication Continue home warfarin dosing-> INR is 3 (4) History of aortic valve replacement: mchanical valve remains on coumadin (5) HLD (hyperlipidemia): (6) Diabetes: Diabetes: -Known diabetic, last A1c 7.3 on 05/29/2020 -Home regimen including Trulicity, glargine, aspart -Temporarily will hold Trulicity -BSG's ACHS, with SSI and glargine (7) Parkinsonism: Parkinsonism: -Follows with neurology (Dr. Sheikh) last seen 07/02 was started on Sinemet 0.5 tab 3 times daily -Continue Sinemet (8) Fall: no injury seen on CT head or cervical spine (9) Interstitial lung disease: Interstitial lung disease: -Oxygen saturations 87% on presentation to ED, with improvement on 2 L NC -Utilizes 2 L NC at night at baseline -Inconsistent utilization of albuterol inhalers at home -Albuterol 2 puffs q4h PRN (10) DVT prophylaxis: Chronic anticoagulation with Coumadin: -Restarted on warfarin 7.5 mg nightly following recent pain management procedure -INR on admission 2.9 -Continue to monitor daily CODE STATUS: Full code Admission and Anticipated Discharge Date Admission Date: July 10, 2020 Subjective this pt is still with back pain and weakness, he has been following Dr Agarwal and will have reconsult, may consider to repeat MRI supportive care at present PT/OT Review of Systems Review of Systems: Mild distress and fatigue no headache, blurry or double vision no speech or swallowing issues no chest pain, pressure or palpitations no shortness of breath, cough or wheezes no abdominal pain, nausea or vomiting, diarrhea or constipation no dysuria, hematuria or frequency no focal joint pain or swelling chronic daily back pain, and leg weakness no bruising, bleeding or rashes no complaints of anxiety or depression.. Physical Exam Physical Exam: The patient appeared well nourished and normally developed. Vital signs as documented. Head exam is normocephalic atraumatic no scleral icterus Neck is without JVD, thyromegaly, or carotid bruits. Lungs are clear to auscultation, no focal loss of breath sounds Cardiac exam, Rhythm is regular.. No murmurs, rubs or gallops. Abdominal exam reveals normal bowel sounds, soft non tender, no masses Extremities are nonedematous and both pedal pulses are present Neurologic exam is alert and oriented, as objective decreased strength of his lower leg no decreased sensation Skin is without bruises or rashes Psychologically is without concerns for anxiety or depression Results & Data Results & Data ([facility]) Vital Signs (Past 12 Hours) Vital Signs Temp Pulse Pulse Pulse Resp BP BP 07/11/20 07:12 65 07/11/20 07:02 97.7 F 68 19 114/66 07/11/20 04:50 97.3 F L 102 H 18 111/70 07/10/20 23:34 98.4 F 75 18 118/54 L 07/10/20 22:42 66 07/10/20 21:38 64 17 124/72 07/10/20 20:52 61 16 07/10/20 19:40 07/10/20 19:34 69 22 124/72 07/10/20 19:25 24 07/10/20 19:21 63 16 07/10/20 18:42 97.7 F 81 22 139/78 Pulse Ox 07/11/20 07:12 07/11/20 07:02 95 07/11/20 04:50 93 07/10/20 23:34 92 07/10/20 22:42 07/10/20 21:38 95 07/10/20 20:52 90 07/10/20 19:40 94 07/10/20 19:34 97 07/10/20 19:25 94 07/10/20 19:21 98 07/10/20 18:42 87 L PG Care Time/CCT Total # of Minutes Spent Total Time Spent with Patient: Total time spent is greater than 50% in coordination of care (as documented) at patient's floor/unit and/or counseling patient: Coding Level of Care Code 60332 Subseq Hosp Care Lvl 2 Diagnoses Weakness R53.1 Chronic kidney disease, stage 3a N18.3 PAF (paroxysmal atrial fibrillation) I48.0 History of aortic valve replacement Z95.2 HLD (hyperlipidemia) E78.2 Hyperlipidemia type: mixed hyperlipidemia Diabetes E11.42; Z79.4 Diabetes mellitus complication detail: with polyneuropathy Diabetes mellitus complication status: with neurologic complications Diabetes mellitus buttermaker continuous churn insulin use: with buttermaker continuous churn use Diabetes mellitus type: type 2 Parkinsonism G20 Fall [id number] Interstitial lung disease J84.9 DVT prophylaxis Z29.9 (1) Diabetes Diabetes mellitus complication detail: with polyneuropathy Diabetes mellitus complication status: with neurologic complications Diabetes mellitus nursing home insulin use: with nursing home use Diabetes mellitus type: type 2 Qualified Code(s): E11.42 - Type 2 diabetes mellitus with diabetic polyneuropathy; Z79.4 - buttermaker helper (current) use of insulin (2) HLD (hyperlipidemia) Hyperlipidemia type: mixed hyperlipidemia Qualified Code(s): E78.2 - Mixed hyperlipidemia
[2020-07-11] MEDS: GABAPENTIN 600 MG TAB PO SCH ×2 (08:18→20:23)
[2020-07-11] MEDS: levETIRAcetam 500 MG TAB PO SCH ×2 (08:18→20:22)
[2020-07-11] MEDS: CARBIDOPA/LEVODOPA 25/100MG TAB PO SCH ×3 (08:18→20:23)
[2020-07-11] MEDS: TOPIRAMATE 100 MG TAB PO SCH ×2 (08:18→20:24)
[2020-07-11] MEDS: FINASTERIDE 5 MG TAB PO SCH (08:18)
[2020-07-11] MEDS: predniSONE 10 MG TABLET PO SCH (08:18)
[2020-07-11] MEDS: INSULIN ASPART 100 UNITS/ML 3 ML PEN SC SCH ×4 (08:19→20:43)
[2020-07-11] MEDS: INSULIN GLARGINE SOLOSTAR 100 UNITS/ML 3 ML PEN SC SCH ×2 (08:19→20:44)
[2020-07-11] MEDS: MAGNESIUM HYDROXIDE SUSP 30 ML UDC PO PRN ×2 (08:27→20:43)
[2020-07-11] MEDS: ACETAMINOPHEN 325 MG TAB PO PRN ×2 (08:27→14:01)
--- NOTE | 2020-07-11 12:38 | Electrocardiogram Report ---
Test Reason : Blood Pressure : / mmHG Vent. Rate : 063 BPM Atrial Rate : 063 BPM P-R Int : 110 ms QRS Dur : 086 ms QT Int : 450 ms P-R-T Axes : -05 021 084 degrees QTc Int : 460 ms Sinus rhythm with short ME with Premature atrial complexes Cannot rule out Anterior infarct , age undetermined Abnormal ECG When compared with ECG of 05-JUN-2020 08:29, Nonspecific T wave abnormality has replaced inverted T waves in Anterior leads Confirmed by Josh Vora ([id number]) on 07/11/2020 12:37:59 PM Referred By: REFERRED SELF Confirmed By:Josh Vora
--- NOTE | 2020-07-11 12:41 | Electrocardiogram Report ---
Test Reason : Blood Pressure : / mmHG Vent. Rate : 068 BPM Atrial Rate : 068 BPM P-R Int : 118 ms QRS Dur : 084 ms QT Int : 434 ms P-R-T Axes : 033 041 069 degrees QTc Int : 461 ms Poor data quality, interpretation may be adversely affected Sinus rhythm with occasional Premature ventricular complexes and Premature atrial complexes Otherwise normal ECG When compared with ECG of 10-JUL-2020 19:34, (unconfirmed) Premature ventricular complexes are now Present Confirmed by Josh Vora ([id number]) on 07/11/2020 12:40:42 PM Referred By: REFERRED SELF Confirmed By:Josh Vora
[2020-07-11] MEDS: WARFARIN SOD 7.5 MG TAB PO SCH (15:23)
[2020-07-11] MEDS: ATORVASTATIN 40 MG TAB PO SCH (20:23)
[2020-07-11] MEDS: allopurinoL 100 MG TAB PO SCH (20:24)
[2020-07-11] MEDS ORDERED: BENZONATATE 100 MG CAPSULE PO ONE (23:49)
[2020-07-11] MEDS ORDERED: TRIAMCINOLONE ACET 0.1% OINT 454 GM EXT PRN (23:49)
--- NOTE | 2020-07-12 03:05 | Billing Data ---
Date of Service July 12, 2020 Coding Level of Care Code 04523 Initial Inpt Care Lvl 3
[2020-07-12 07:15] LABS: Basophils # (auto) 0.01 K/uL (0-0.2); Basophils % (auto) 0.2 %; Eosinophils # (auto) 0.16 K/uL (0-0.5); Eosinophils % (auto) 3.6 %; Hematocrit (blood only) 33.6 % (42-52); Hemoglobin 10.8 g/dL (14.0-18.0); Immature Granulocytes # (auto) 0.01 K/uL (0.00-0.02); Immature Granulocytes % (auto) 0.2 %; Lymphocytes # (auto) 1.23 K/uL (1.2-3.4); Mean Corpuscular Hemoglobin 27.3 pg (25-34); Mean Corpuscular Hgb Conc 32.1 g/dL (32-36); Mean Corpuscular Volume 84.8 fL (80-100); Mean Platelet Volume 9.9 fL (7.4-10.4); Monocytes # (auto) 0.26 K/uL (0.11-0.59); Monocytes % (auto) 5.9 %; Neutrophils # (auto) 2.73 K/uL (1.4-6.5); Neutrophils % (auto) 62.1 %; Platelet Count 156 K/uL (130-400); RDW Coefficient of Variation 15.4 % (11.5-14.5); RDW Standard Deviation 48.1 fL (36.4-46.3); Red Blood Count 3.96 M/uL (4.7-6.1)
[2020-07-12 07:23] LABS: INR 3.5 (0.9-1.1); Prothrombin Time 32.2 Seconds (9.0-12.0)
[2020-07-12 07:57] LABS: Calcium 8.2 mg/dl (8.5-10.1); Creatinine Clr Calc Pharmacy 66.4 ml/min; Est GFR (African American) 73.3; Est GFR (Non-African American) 63.2; Magnesium 2.4 mg/dl (1.8-2.4); Phosphorus 2.6 mg/dl (2.5-4.9); Potassium 3.5 mmol/L (3.5-5.1)
[2020-07-12] MEDS: levETIRAcetam 500 MG TAB PO SCH ×2 (08:23→20:21)
[2020-07-12] MEDS: TOPIRAMATE 100 MG TAB PO SCH ×2 (08:24→20:25)
[2020-07-12] MEDS: predniSONE 10 MG TABLET PO SCH (08:24)
[2020-07-12] MEDS: CARBIDOPA/LEVODOPA 25/100MG TAB PO SCH ×3 (08:25→20:25)
[2020-07-12] MEDS: GABAPENTIN 600 MG TAB PO SCH ×2 (08:25→20:22)
[2020-07-12] MEDS: INSULIN GLARGINE SOLOSTAR 100 UNITS/ML 3 ML PEN SC SCH ×2 (08:26→20:59)
[2020-07-12] MEDS: FINASTERIDE 5 MG TAB PO SCH (08:26)
[2020-07-12] MEDS: INSULIN ASPART 100 UNITS/ML 3 ML PEN SC SCH ×4 (08:28→20:59)
[2020-07-12] MEDS: ACETAMINOPHEN 325 MG TAB PO PRN (10:06)
[2020-07-12] MEDS: TRIAMCINOLONE ACET 0.1% OINT 80 GM TUBE EXT PRN (10:07)
--- NOTE | 2020-07-12 13:17 | Hospitalist Progress Note ---
Date of Service July 12, 2020 Assessment & Plan (1) Weakness: Xavi Bradford is a 75-year-old male with PMH significant for paroxysmal atrial fibrillation, mechanical aortic valve replacement, hyperlipidemia, diabetes, parkinsonism, interstitial lung disease on 2 L nasal cannula at night, lumbar spinal stenosis, and frequent falls; who presented to the ER for multiple concerns, in the setting of feeling short of breath and numerous/frequent falls. Weakness: -Patient with recent and frequent history of falls with recent hospitalization in May; during this admission initial recommendation was for SNF at [facility], however patient declined in favor of returning home -Patient states he follows with Dr. Agarwal. Did have a back injection which helped for 2 days but then failed. He states Dr. Agarwal is considering surgery. Most recent MRI we have on file is from 05/30/2020 it is as follows IMPRESSION: 1. No significant change in appearance of the lumbar spine since MRI of January 21, 2020. Status post L2-L4 laminectomy. No central canal stenosis. 2. Moderate to severe multilevel neural foraminal stenosis, most pronounced at the left L3-L4 and bilateral L5-S1 neural foramen 3. No lumbar spine fracture. 4. Moderate multilevel degenerative disc disease. Severe multilevel facet arthrosis. -PT/OT evaluations ordered -Would consult Dr. Agarwal CT abdomen pelvis 07/10/20 IMPRESSION: 1. No acute posttraumatic intra-abdominal or intrapelvic abnormality. 2. No acute fracture. 3. Chronic left greater than right bibasilar centrilobular and groundglass opacities suggestive of an infectious or inflammatory pneumonitis. 4. No bowel obstruction. 5. Appendectomy and cholecystectomy with gastric lap band in place. (2) Chronic kidney disease, stage 3a: (3) PAF (paroxysmal atrial fibrillation): Paroxysmal atrial fibrillation: -History of paroxysmal atrial fibrillation -EKG in ED demonstrating concerns for return of atrial fibrillation without RVR -not on any rate controlling medication Continue home warfarin dosing-> INR is 3 (4) History of aortic valve replacement: mchanical valve remains on coumadin (5) HLD (hyperlipidemia): (6) Diabetes: Diabetes: -Known diabetic, last A1c 7.3 on 05/29/2020 -Home regimen including Trulicity, glargine, aspart -Temporarily will hold Trulicity -BSG's ACHS, with SSI and glargine (7) Parkinsonism: Parkinsonism: -Follows with neurology (Dr. Sheikh) last seen 07/02 was started on Sinemet 0.5 tab 3 times daily -Continue Sinemet (8) Fall: no injury seen on CT head or cervical spine (9) Interstitial lung disease: Interstitial lung disease: -Oxygen saturations 87% on presentation to ED, with improvement on 2 L NC -Utilizes 2 L NC at night at baseline -Inconsistent utilization of albuterol inhalers at home -Albuterol 2 puffs q4h PRN Admission and Anticipated Discharge Date Admission Date: July 10, 2020 Results & Data Results & Data ([facility]) Vital Signs (Past 12 Hours) Vital Signs Temp Pulse Resp BP Pulse Ox 07/12/20 11:11 36.8 C 61 18 125/68 97 07/12/20 07:30 36.4 C L 49 L 18 119/68 96 07/12/20 04:09 36.4 C L 56 L 18 121/66 95 PG Care Time/CCT Total # of Minutes Spent Total Time Spent with Patient: Total time spent is greater than 50% in coordination of care (as documented) at patient's floor/unit and/or counseling patient: Coding Diagnoses Weakness R53.1 Chronic kidney disease, stage 3a N18.3 PAF (paroxysmal atrial fibrillation) I48.0 History of aortic valve replacement Z95.2 HLD (hyperlipidemia) E78.2 Hyperlipidemia type: mixed hyperlipidemia Diabetes E11.42; Z79.4 Diabetes mellitus type: type 2 Diabetes mellitus correction insulin use: with correction use Diabetes mellitus complication status: with neurologic complications Diabetes mellitus complication detail: with polyneuropathy Parkinsonism G20 Fall [id number] Interstitial lung disease J84.9 (1) HLD (hyperlipidemia) Hyperlipidemia type: mixed hyperlipidemia Qualified Code(s): E78.2 - Mixed hyperlipidemia (2) Diabetes Diabetes mellitus type: type 2 Diabetes mellitus correction insulin use: with terminal block assembler use Diabetes mellitus complication status: with neurologic complications Diabetes mellitus complication detail: with polyneuropathy Qualified Code(s): E11.42 - Type 2 diabetes mellitus with diabetic polyneuropathy; Z79.4 - retirement (current) use of insulin
--- NOTE | 2020-07-12 13:19 | Hospitalist Progress Note ---
Date of Service July 12, 2020 Assessment & Plan (1) Weakness: Xavi Bradford is a 75-year-old male with PMH significant for paroxysmal atrial fibrillation, mechanical aortic valve replacement, hyperlipidemia, diabetes, parkinsonism, interstitial lung disease on 2 L nasal cannula at night, lumbar spinal stenosis, and frequent falls; who presented to the ER for multiple concerns, in the setting of feeling short of breath and numerous/frequent falls. Increasing weakness and falls possibly due to a combination of lumbar spinal stenosis and Parkinson's Disease Weakness: -Patient with recent and frequent history of falls with recent hospitalization in May; during this admission initial recommendation was for SNF at [facility], however patient declined in favor of returning home -Patient states he follows with Dr. Agarwal. Did have a back injection which helped for 2 days but then failed. He states Dr. Agarwal is considering surgery. Most recent MRI we have on file is from 05/30/2020 it is as follows IMPRESSION: 1. No significant change in appearance of the lumbar spine since MRI of January 21, 2020. Status post L2-L4 laminectomy. No central canal stenosis. 2. Moderate to severe multilevel neural foraminal stenosis, most pronounced at the left L3-L4 and bilateral L5-S1 neural foramen 3. No lumbar spine fracture. 4. Moderate multilevel degenerative disc disease. Severe multilevel facet arthrosis. -PT/OT evaluations ordered anticipate him needing rehab, he is currently living alone, cannot live with family due to ongoing issues, has demonstrated that he falls a lot at home, concerned about safety -consult Dr. Agarwal, awaiting his recommendations, right now the patient says he is on wait list for OR, would need insurance authorization (2) Chronic kidney disease, stage 3a: Cr is stable at this time, making urine (3) PAF (paroxysmal atrial fibrillation): Paroxysmal atrial fibrillation: -History of paroxysmal atrial fibrillation -EKG in ED demonstrating concerns for return of atrial fibrillation without RVR -not on any rate controlling medication Continue home warfarin dosing-> INR is 3 can down grade off tele (4) History of aortic valve replacement: mchanical valve remains on coumadin (5) HLD (hyperlipidemia): (6) Diabetes: Diabetes: -Known diabetic, last A1c 7.3 on 05/29/2020 -Home regimen including Trulicity, glargine, aspart -Temporarily will hold Trulicity -BSG's ACHS, with SSI and glargine, monitor for hypo and hyperglycemic episodes (7) Parkinsonism: Parkinsonism: -Follows with neurology (Dr. Sheikh) last seen 07/02 was started on Sinemet 0.5 tab 3 times daily -Continue Sinemet (8) Fall: no injury seen on CT head or cervical spine (9) Interstitial lung disease: Interstitial lung disease: -Oxygen saturations 87% on presentation to ED, with improvement on 2 L NC -Utilizes 2 L NC at night at baseline -Inconsistent utilization of albuterol inhalers at home -Albuterol 2 puffs q4h PRN he saw Dr. Buckley in early June, plan to start Rituxan soon as outpatient, he has had his 2nd COVID vaccine shot (10) Severe protein-calorie malnutrition: encourage PO intake, supplements (11) Constipated: start Miralax 34gm q6 (he takes this at home, ordered by his PCP) (12) Tinea cruris: Terbinafine cream BID likely due to ongoing Prednisone use Admission and Anticipated Discharge Date Admission Date: July 10, 2020 Subjective patient is very frustrated, the past few months have been very difficult for him he was falling again at his home, he says he falls from the severe pain from his lower back, can only stand for about 2 minutes he had to move into his own town home, out of his son's place his son checks on him every day, gets him food, tries to help him as best he can he said that he fell on Sunday from sharp low back pain, no injuries, was able to get back on to his couch he saw Dr. Buckley this month, plan to start Rituxan once it is authorized he saw Dr. Sheikh with neurology, diagnosed with Parkinson's, started on Sinemet 1/2 tablet TID he was able to follow up with Dr. Agarwal's office for L5 level injection, he got relief for 1.5 days and then the pain came back he says he is currently on wait list for surgery, he wishes he could get the surgery now because the severe pain is causing him to fall he has been living with this pain for 2 years now, multiple issues have delayed surgical correction and he is very frustrated currently, he wants Miralax 34gm q6 for constipation, he says this is what Dr. Gaspar prescribes also, he is dealing with tinea cruris, likely from Prednisone, asking for cream Review of Systems Review of Systems: All systems reviewed & are unremarkable except as noted in Subjective Respiratory: + dyspnea on exertion; no cough and no dyspnea Cardiovascular: no chest pain, no palpitations, no syncope and no edema Gastrointestinal: + constipation; no abdominal pain, no nausea, no vomiting and no diarrhea/loose stools Musculoskeletal: + back pain; no neck pain, no joint pain and no myalgia Physical Exam Constitutional: WD/WN, vitals as above ENMT: Mouth: + poor dentition Neck: trachea midline, no thyromegaly Respiratory: normal respiratory effort, lungs clear to auscultation Cardiovascular: RRR, no murmur, no edema Gastrointestinal (Abdomen): normal bowel sounds, soft, nontender, no hepatosplenomegaly Musculoskeletal: Head/Neck/Chest: normocephalic, head atraumatic and neck supple Spine: + limited thoraco-lumbar ROM (due to pain) Extremities: extremities normal to inspection and strength 5/5 throughout Skin: + rash (inguinal folds and groin area, tinea cruris) Neurologic: patellar DTR's 2+ bilat, sensation intact and PERRL, EOMI, accommodation nl, no face palsy, no dysarthria Psychiatric: Orientation: alert, oriented x 3 and cooperative Affect: + depressed affect Lymphatic: no cervical or axillary lymphadenopathy Results & Data Results & Data ([facility]) Vital Signs (Past 12 Hours) Vital Signs Temp Pulse Resp BP Pulse Ox 07/12/20 11:11 36.8 C 61 18 125/68 97 07/12/20 07:30 36.4 C L 49 L 18 119/68 96 07/12/20 04:09 36.4 C L 56 L 18 121/66 95 Laboratory Results Laboratory Results - last 24 hr 07/11/20 07/11/20 07/12/20 16:34 20:10 07:00 WBC 4.40 L RBC 3.96 L Hgb 10.8 L Hct 33.6 L MCV 84.8 MCH 27.3 MCHC 32.1 RDW Std Deviation 48.1 H RDW Coeff of Lianne 15.4 H Plt Count 156 MPV 9.9 Immature Gran % (Auto) 0.2 Neut % (Auto) 62.1 Lymph % (Auto) 28.0 Bowie % (Auto) 5.9 Eos % (Auto) 3.6 Baso % (Auto) 0.2 Neut # (Auto) 2.73 Lymph # (Auto) 1.23 Bowie # (Auto) 0.26 Eos # (Auto) 0.16 Baso # (Auto) 0.01 Immature Gran # (Auto) 0.01 PT INR Sodium Potassium Chloride Carbon Dioxide Anion Gap BUN Creatinine Est Cr Clr Drug Dosing Est GFR ( Amer) Est GFR (Non-Af Amer) BUN/Creatinine Ratio Glucose POC Glucose 129 H 179 H Calcium Phosphorus Magnesium 07/12/20 07/12/20 07/12/20 07:00 07:00 07:38 WBC RBC Hgb Hct MCV MCH MCHC RDW Std Deviation RDW Coeff of Lianne Plt Count MPV Immature Gran % (Auto) Neut % (Auto) Lymph % (Auto) Bowie % (Auto) Eos % (Auto) Baso % (Auto) Neut # (Auto) Lymph # (Auto) Bowie # (Auto) Eos # (Auto) Baso # (Auto) Immature Gran # (Auto) PT 32.2 H INR 3.5 H Sodium 142 Potassium 3.5 D Chloride 112 H Carbon Dioxide 23 Anion Gap 7.0 BUN 25 H Creatinine 1.13 Est Cr Clr Drug Dosing 66.4 Est GFR ( Amer) 73.3 Est GFR (Non-Af Amer) 63.2 BUN/Creatinine Ratio 22.0 H Glucose 117 H POC Glucose 111 H Calcium 8.2 L Phosphorus 2.6 D Magnesium 2.4 07/12/20 11:44 WBC RBC Hgb Hct MCV MCH MCHC RDW Std Deviation RDW Coeff of Lianne Plt Count MPV Immature Gran % (Auto) Neut % (Auto) Lymph % (Auto) Bowie % (Auto) Eos % (Auto) Baso % (Auto) Neut # (Auto) Lymph # (Auto) Bowie # (Auto) Eos # (Auto) Baso # (Auto) Immature Gran # (Auto) PT INR Sodium Potassium Chloride Carbon Dioxide Anion Gap BUN Creatinine Est Cr Clr Drug Dosing Est GFR ( Amer) Est GFR (Non-Af Amer) BUN/Creatinine Ratio Glucose POC Glucose 149 H Calcium Phosphorus Magnesium Medications Administered Current Inpatient Medications Acetaminophen (Acetaminophen 325 Mg Tab) 650 mg PO Q4H PRN PRN Reason: pain/fever Stop: 08/09/20 22:28 Last Admin: 07/12/20 10:06 Dose: 650 mg Documented by: Al Hydrox/Mg Hydrox/Simethicone (Aluminum/Magnesium Susp 30 Ml Udc) 30 ml PO Q6H PRN PRN Reason: Dyspepsia Stop: 08/09/20 22:28 Albuterol (Albuterol Hfa 8 Gm Inhaler) 2 puffs INH Q4H PRN PRN Reason: Wheezing Stop: 08/09/20 22:28 Albuterol (Albut/Ipratrop 3mg/0.5mg Neb 3 Ml Vial) 3 ml INH QID PRN PRN Reason: Shortness Of Breath Or Wheezing Stop: 08/09/20 22:28 Allopurinol (Allopurinol 100 Mg Tab) 200 mg PO HS KIRSTEN Stop: 08/10/20 20:59 Last Admin: 07/11/20 20:24 Dose: 200 mg Documented by: Atorvastatin Calcium (Atorvastatin 40 Mg Tab) 40 mg PO HS [facility] Stop: 08/10/20 20:59 Last Admin: 07/11/20 20:23 Dose: 40 mg Documented by: Carbidopa/Levodopa (Carbidopa/Levodopa 25/100mg Tab) 0.5 tab PO TID KIRSTEN Stop: 08/10/20 08:59 Last Admin: 07/12/20 13:00 Dose: 0.5 tab Documented by: Dextrose (Dextrose 50% 50 Ml Syringe) 25 - 50 ml IV UD PRN; Protocol PRN Reason: Hypoglycemia Protocol Stop: 08/09/20 22:28 Finasteride (Finasteride 5 Mg Tab) 5 mg PO QAM KIRSTEN Stop: 08/10/20 08:59 Last Admin: 07/12/20 08:26 Dose: 5 mg Documented by: Gabapentin (Gabapentin 600 Mg Tab) 600 mg PO BID KIRSTEN Stop: 08/10/20 08:59 Last Admin: 07/12/20 08:25 Dose: 600 mg Documented by: Glucagon (Glucagon For Inj 1 Mg Vial) 1 mg SQ UD PRN; Protocol PRN Reason: Hypoglycemia Protocol Stop: 08/09/20 22:28 Glucose (Glucose 10 Tabs/Tube) 4 - 8 tabs PO UD PRN; Protocol PRN Reason: Hypoglycemia Protocol Stop: 08/09/20 22:28 Glucose (Glucose 40% Gel 15 Gm Tube) 15 - 30 gm PO UD PRN; Protocol PRN Reason: Hypoglycemia Protocol Stop: 08/09/20 22:28 Insulin Aspart (Insulin Aspart 100 Units/Ml 3 Ml Pen) 0 units SC ACHS [facility] Stop: 08/09/20 22:44 Last Admin: 07/12/20 11:48 Dose: 6 units Documented by: Insulin Glargine (Insulin Glargine Solostar 100 Units/Ml 3 Ml Pen) 20 units SC BID KIRSTEN Stop: 08/09/20 22:44 Last Admin: 07/12/20 08:26 Dose: 20 units Documented by: Levetiracetam (Levetiracetam 500 Mg Tab) 1,000 mg PO BID [facility] Stop: 08/10/20 08:59 Last Admin: 07/12/20 08:23 Dose: 1,000 mg Documented by: Magnesium Hydroxide (Magnesium Hydroxide Susp 30 Ml Udc) 30 ml PO Q6H PRN PRN Reason: Constipation Stop: 08/09/20 22:28 Last Admin: 07/11/20 20:43 Dose: 30 ml Documented by: Miscellaneous (Carbohydrates For Hypoglycemia ) 15 - 30 gm PO UD PRN PRN Reason: Hypoglycemia Protocol Stop: 08/09/20 22:28 Ondansetron HCl (Ondansetron Inj 2 Mg/Ml 2 Ml Vial) 4 mg IV Q6H PRN PRN Reason: Nausea Stop: 08/09/20 22:28 Prednisone (Prednisone 10 Mg Tablet) 10 mg PO DAILY KIRSTEN Stop: 08/10/20 08:59 Last Admin: 07/12/20 08:24 Dose: 10 mg Documented by: Topiramate (Topiramate 100 Mg Tab) 100 mg PO BID [facility] Stop: 08/10/20 08:59 Last Admin: 07/12/20 08:24 Dose: 100 mg Documented by: Triamcinolone Acetonide (Triamcinolone Acet 0.1% Oint 80 Gm Tube) 1 appln EXT Q12H PRN PRN Reason: pruritis Stop: 08/11/20 00:15 Last Admin: 07/12/20 10:07 Dose: 1 appln Documented by: Warfarin Sodium (Warfarin Sod 7.5 Mg Tab) 7.5 mg PO DAILY@1600 [facility] Stop: 08/10/20 15:59 Last Admin: 07/11/20 15:23 Dose: 7.5 mg Documented by: PG Care Time/CCT Total # of Minutes Spent Total Time Spent with Patient: Total time spent is greater than 50% in coordination of care (as documented) at patient's floor/unit and/or counseling patient: Coding Level of Care Code 17309 Subseq Hosp Care Lvl 3 Diagnoses Weakness R53.1 Chronic kidney disease, stage 3a N18.3 PAF (paroxysmal atrial fibrillation) I48.0 History of aortic valve replacement Z95.2 HLD (hyperlipidemia) E78.2 Hyperlipidemia type: mixed hyperlipidemia Diabetes E11.42; Z79.4 Diabetes mellitus complication detail: with polyneuropathy Diabetes mellitus complication status: with neurologic complications Diabetes mellitus senior care insulin use: with senior care use Diabetes mellitus type: type 2 Parkinsonism G20 Fall W19.XXXA Interstitial lung disease J84.9 Severe protein-calorie malnutrition E43 Constipated K59.00 Constipation type: unspecified constipation type Tinea cruris B35.6 (1) Diabetes Diabetes mellitus complication detail: with polyneuropathy Diabetes mellitus complication status: with neurologic complications Diabetes mellitus senior care insulin use: with senior care use Diabetes mellitus type: type 2 Qualified Code(s): E11.42 - Type 2 diabetes mellitus with diabetic polyneuropathy; Z79.4 - intermediate frame tender (current) use of insulin (2) HLD (hyperlipidemia) Hyperlipidemia type: mixed hyperlipidemia Qualified Code(s): E78.2 - Mixed hyperlipidemia (3) Constipated Constipation type: unspecified constipation type Qualified Code(s): K59.00 - Constipation, unspecified
[2020-07-12] MEDS: POLYETHYLENE (MIRALAX) 17 GM PACK PO SCH ×2 (14:44→20:20)
[2020-07-12] MEDS: WARFARIN SOD 7.5 MG TAB PO SCH (16:25)
[2020-07-12] MEDS: TERBINAFINE CR 30 GM TUBE EXT SCH (20:21)
[2020-07-12] MEDS: ATORVASTATIN 40 MG TAB PO SCH (20:22)
[2020-07-12] MEDS: allopurinoL 100 MG TAB PO SCH (20:26)
[2020-07-13] MEDS: POLYETHYLENE (MIRALAX) 17 GM PACK PO SCH ×4 (02:31→21:26)
[2020-07-13] MEDS: GABAPENTIN 600 MG TAB PO SCH ×2 (08:15→21:25)
[2020-07-13] MEDS: CARBIDOPA/LEVODOPA 25/100MG TAB PO SCH ×3 (08:15→21:26)
[2020-07-13] MEDS: TOPIRAMATE 100 MG TAB PO SCH ×2 (08:16→21:26)
[2020-07-13] MEDS: FINASTERIDE 5 MG TAB PO SCH (08:16)
[2020-07-13] MEDS: levETIRAcetam 500 MG TAB PO SCH ×2 (08:16→21:25)
[2020-07-13] MEDS: predniSONE 10 MG TABLET PO SCH (08:17)
[2020-07-13] MEDS: TERBINAFINE CR 30 GM TUBE EXT SCH ×2 (08:17→21:52)
[2020-07-13] MEDS: INSULIN GLARGINE SOLOSTAR 100 UNITS/ML 3 ML PEN SC SCH ×2 (08:18→21:32)
[2020-07-13] MEDS: INSULIN ASPART 100 UNITS/ML 3 ML PEN SC SCH ×4 (08:19→21:31)
[2020-07-13 10:00] LABS: Basophils # (auto) 0.02 K/uL (0-0.2); Basophils % (auto) 0.4 %; Eosinophils # (auto) 0.11 K/uL (0-0.5); Eosinophils % (auto) 2.5 %; Hematocrit (blood only) 35.6 % (42-52); Hemoglobin 11.5 g/dL (14.0-18.0); Immature Granulocytes # (auto) 0.02 K/uL (0.00-0.02); Immature Granulocytes % (auto) 0.4 %; Lymphocytes # (auto) 1.01 K/uL (1.2-3.4); Lymphocytes % (auto) 22.5 %; Mean Corpuscular Hemoglobin 27.3 pg (25-34); Mean Corpuscular Hgb Conc 32.3 g/dL (32-36); Mean Corpuscular Volume 84.6 fL (80-100); Mean Platelet Volume 9.8 fL (7.4-10.4); Monocytes # (auto) 0.18 K/uL (0.11-0.59); Neutrophils # (auto) 3.14 K/uL (1.4-6.5); Neutrophils % (auto) 70.2 %; Platelet Count 166 K/uL (130-400); RDW Coefficient of Variation 15.5 % (11.5-14.5); RDW Standard Deviation 48.3 fL (36.4-46.3); Red Blood Count 4.21 M/uL (4.7-6.1); White Blood Count 4.48 K/uL (4.8-10.8)
[2020-07-13 10:16] LABS: INR 2.9 (0.9-1.1); Prothrombin Time 27.1 Seconds (9.0-12.0)
[2020-07-13 10:37] LABS: BUN Creatinine Ratio 22.5 (10-20); Calcium 8.5 mg/dl (8.5-10.1); Creatinine Clr Calc Pharmacy 65.8 ml/min; Est GFR (African American) 72.5; Est GFR (Non-African American) 62.6; Magnesium 2.3 mg/dl (1.8-2.4); Phosphorus 2.5 mg/dl (2.5-4.9); Potassium 3.5 mmol/L (3.5-5.1)
--- NOTE | 2020-07-13 12:23 | Orthopedic Consultation ---
Date of Consultation July 13, 2020 Assessment & Plan (1) Neurogenic claudication due to lumbar spinal stenosis: Discussed with this patient regarding his response to injections in his quality of life. He would like to pursue surgical invention. Would be quite extensive nature requiring a lumbar decompression and fusion most likely L3-S1. Risk benefits pros cons and alternatives outlined. At this point we will consider his medical stability and move forward if possible. Present on Admission?: Yes History of Present Illness Reason for Consultation: Back and bilateral leg pain Attending Physician: Russell Ram, DO History of Present Illness This is a very pleasant 75-year-old male known to me with a history of significant worsening back and bilateral leg pain. Is become markedly incapacitating nature. Is unable to care for himself and undergo activities of daily living. He does have a history of a multilevel decompression several years ago. He has most recently undergone some injections with my partner Dr. Crawford with few days of relief only. Today he continues to have pain in the bilateral buttocks posterior legs markedly exacerbated with standing and walking. Allergies Allergy/AdvReac Type Severity Reaction Status Date / Time Iodinated Contrast Media Allergy Severe Anaphylaxis Verified 07/10/20 20:53 shellfish derived Allergy Severe Anaphylaxis Verified 07/10/20 20:53 Tetanus Vaccines and Toxoid Allergy Unknown Unknown Verified 07/10/20 20:53 Home Medications Medication Instructions Recorded Confirmed Type Trulicity 1.5 mg SUBCUT SA 01/20/20 07/10/20 History albuterol sulfate [Ventolin HFA] 2 puff INHALATION Q4H PRN 01/20/20 07/10/20 History allopurinol 200 mg PO HS 01/20/20 07/10/20 History azithromycin 250 mg PO .[email or web address] 01/20/20 07/10/20 History cholecalciferol (vitamin D3) 2,000 unit PO HS 01/20/20 07/10/20 History [Vitamin D3] finasteride 5 mg PO QAM 01/20/20 07/10/20 History insulin aspart U-100 0 unit SUBCUT ACHS 01/20/20 07/10/20 History ipratropium-albuterol 3 ml INHALATION QID PRN 01/20/20 07/10/20 History nitroglycerin 0.4 mg SUBLINGUAL DIRECTED PRN 01/20/20 07/10/20 History [id number] 1 tab PO HS 02/05/20 07/10/20 History gabapentin 600 mg tablet 600 mg PO BID tab 04/02/20 07/10/20 History levetiracetam 1,000 mg tablet 1,000 mg PO BID 90 Days #180 tab 04/02/20 07/10/20 Rx topiramate 100 mg tablet 100 mg PO BID 30 Days #60 tab 05/17/20 07/10/20 Rx atorvastatin 40 mg PO HS 05/28/20 07/10/20 History carbidopa 25 mg-levodopa 100 mg 0.5 tab PO TID #90 tab 07/02/20 07/10/20 Rx tablet insulin glargine [Lantus Solostar 20 unit SUBCUT BID 07/10/20 07/10/20 History U-100 Insulin] prednisone 10 mg PO DAILY 07/10/20 07/10/20 History Patient History Medical History CAD (coronary artery disease) Dehydration Diabetes HLD (hyperlipidemia) Interstitial lung disease Interstitial lung disease due to connective tissue disease Lung nodule Polymyositis Polymyositis Prostate cancer s/p XRT Rheumatoid arthritis Seizure-like activity Stroke-like symptom 12/2019, w/ blurry vision and dysarthria. mild R sided wkness. attending outpatient physical therapy w/ good improvement in strength (5+/5 strength of all 4 extremities as of 05/28/20) Thoracic ascending aortic aneurysm s/p repair Surgical History H/O hernia repair History of aortic valve replacement mechanical History of cholecystectomy History of fusion of cervical spine History of gastric bypass lap band History of heart artery stent History of lung biopsy 2019 History of partial nephrectomy Family History Other Coronary heart disease Rheumatoid arthritis Stroke Social History Smoking Status: Never smoker Second Hand Exposure: No; Hx Alcohol Use: No Hx Substance Use: No Preferred Language: [place] Communication Ability: Effective Hearing Ability: Hard of Hearing Cutting Machine Fixer Required: No Beliefs That Will Affect Care: None marital status: / Current Living Situation: Alone Current Living Situation Comment: son Other Information That Helps Us Care for You: No Feels Safe at Home: Yes Safety Concerns: Feels Safe At This Time Assistive Devices: Hearing Aid - Right, Oxygen - at Night and Walker Physical Exam Physical Exam: On exam he is comfortable in bed. He exhibits reasonable plantar flexion dorsiflexion quadriceps. Sensory intact. Results & Data ([facility]) Vital Signs (Past 12 Hours) Vital Signs Temp Pulse Resp BP Pulse Ox 07/13/20 07:00 36.3 C L 47 L 20 127/72 95
--- NOTE | 2020-07-13 15:22 | Hospitalist Progress Note ---
Date of Service July 13, 2020 Assessment & Plan (1) Weakness: Xavi Bradford is a 75-year-old male with PMH significant for paroxysmal atrial fibrillation, mechanical aortic valve replacement, hyperlipidemia, diabetes, parkinsonism, interstitial lung disease on 2 L nasal cannula at night, lumbar spinal stenosis, and frequent falls; who presented to the ER for multiple concerns, in the setting of feeling short of breath and numerous/frequent falls. Increasing weakness and falls possibly due to a combination of lumbar spinal stenosis and Parkinson's Disease Weakness: -Patient with recent and frequent history of falls with recent hospitalization in May; during this admission initial recommendation was for SNF at [facility], however patient declined in favor of returning home -Patient states he follows with Dr. Agarwal. Did have a back injection which helped for 2 days but then failed. Most recent MRI we have on file is from 05/30/2020 it is as follows IMPRESSION: 1. No significant change in appearance of the lumbar spine since MRI of January 21, 2020. Status post L2-L4 laminectomy. No central canal stenosis. 2. Moderate to severe multilevel neural foraminal stenosis, most pronounced at the left L3-L4 and bilateral L5-S1 neural foramen 3. No lumbar spine fracture. 4. Moderate multilevel degenerative disc disease. Severe multilevel facet arthrosis. -PT/OT evaluations ordered anticipate him needing rehab, he is currently living alone, cannot live with family due to ongoing issues, has demonstrated that he falls a lot at home, concerned about safety -consult Dr. Agarwal, he can offer surgery but patient is very complicated medically, high risk of complications d/w the patient today, he wants to proceed with surgery, he understands the risks, states that he has no quality of life with the pain and instability would rather take risk of surgery than live like this I will speak with Dr. Agarwal, start holding Coumadin (2) Chronic kidney disease, stage 3a: Cr is stable at this time, making urine electrolytes stable (3) PAF (paroxysmal atrial fibrillation): Paroxysmal atrial fibrillation: -History of paroxysmal atrial fibrillation -EKG in ED demonstrating concerns for return of atrial fibrillation without RVR -not on any rate controlling medication Continue home warfarin dosing-> INR is 2.9 can down grade off tele hold Coumadin starting tomorrow (4) History of aortic valve replacement: mchanical valve remains on coumadin hold Coumadin will need Lovenox bridge (5) HLD (hyperlipidemia): (6) Diabetes: Diabetes: -Known diabetic, last A1c 7.3 on 05/29/2020 -Home regimen including Trulicity, glargine, aspart -Temporarily will hold Trulicity -BSG's ACHS, with SSI and glargine, monitor for hypo and hyperglycemic episodes (7) Parkinsonism: Parkinsonism: -Follows with neurology (Dr. Sheikh) last seen 07/02 was started on Sinemet 0.5 tab 3 times daily -Continue Sinemet (8) Fall: no injury seen on CT head or cervical spine (9) Interstitial lung disease: Interstitial lung disease: -Oxygen saturations 87% on presentation to ED, with improvement on 2 L NC -Utilizes 2 L NC at night at baseline -Inconsistent utilization of albuterol inhalers at home -Albuterol 2 puffs q4h PRN he saw Dr. Buckley in early June, plan to start Rituxan soon as outpatient, he has had his 2nd COVID vaccine shot (10) Severe protein-calorie malnutrition: encourage PO intake, supplements (11) Constipated: start Miralax 34gm q6 (he takes this at home, ordered by his PCP) constipation resolved, go back to 34gm qAM (12) Tinea cruris: Terbinafine cream BID likely due to ongoing Prednisone use rash is better today Admission and Anticipated Discharge Date Admission Date: July 10, 2020 Subjective patient had a BM today, will back off on Miralax tinea cruris is better with terbinafine appreciate note from Dr. Agarwal, the patient really wants surgical correction, he understands the risks he says he has no quality of life right now and would accept any risks CBC and BMP normal, INR is 2.9, will start holding Coumadin he wants his diet changed to regular consistency Review of Systems Review of Systems: All systems reviewed & are unremarkable except as noted in Subjective Constitutional: no fever, no chills, no sweats, no fatigue and no weakness Respiratory: no cough and no dyspnea Cardiovascular: no chest pain, no palpitations, no syncope and no edema Musculoskeletal: + back pain and + joint pain; no neck pain Physical Exam Constitutional: WD/WN, vitals as above ENMT: Mouth: + poor dentition Neck: trachea midline, no thyromegaly Respiratory: normal respiratory effort, lungs clear to auscultation Cardiovascular: RRR, no murmur, no edema Gastrointestinal (Abdomen): normal bowel sounds, soft, nontender, no hepatosplenomegaly Musculoskeletal: Head/Neck/Chest: normocephalic, head atraumatic and neck supple Spine: + limited thoraco-lumbar ROM (due to pain) Extremities: extremities normal to inspection and strength 5/5 throughout Skin: + rash (inguinal folds and groin area, tinea cruris) Neurologic: patellar DTR's 2+ bilat, sensation intact and PERRL, EOMI, accommodation nl, no face palsy, no dysarthria Psychiatric: Orientation: alert, oriented x 3 and cooperative Affect: + depressed affect Lymphatic: no cervical or axillary lymphadenopathy Results & Data Results & Data ([facility]) Vital Signs (Past 12 Hours) Vital Signs Temp Pulse Resp BP Pulse Ox 07/13/20 15:00 37.0 C 48 L 20 128/69 97 07/13/20 07:00 36.3 C L 47 L 20 127/72 95 Laboratory Results Laboratory Results - last 24 hr 07/12/20 07/12/20 07/13/20 16:28 20:34 07:56 WBC RBC Hgb Hct MCV MCH MCHC RDW Std Deviation RDW Coeff of Lianne Plt Count MPV Immature Gran % (Auto) Neut % (Auto) Lymph % (Auto) [place] % (Auto) Eos % (Auto) Baso % (Auto) Neut # (Auto) Lymph # (Auto) [place] # (Auto) Eos # (Auto) Baso # (Auto) Immature Gran # (Auto) PT INR Sodium Potassium Chloride Carbon Dioxide Anion Gap BUN Creatinine Est Cr Clr Drug Dosing Est GFR ( Amer) Est GFR (Non-Af Amer) BUN/Creatinine Ratio Glucose POC Glucose 188 H 182 H 116 H Calcium Phosphorus Magnesium 07/13/20 07/13/20 07/13/20 09:48 09:48 09:48 WBC 4.48 L RBC 4.21 L Hgb 11.5 L Hct 35.6 L MCV 84.6 MCH 27.3 MCHC 32.3 RDW Std Deviation 48.3 H RDW Coeff of Lianne 15.5 H Plt Count 166 MPV 9.8 Immature Gran % (Auto) 0.4 Neut % (Auto) 70.2 Lymph % (Auto) 22.5 [place] % (Auto) 4.0 Eos % (Auto) 2.5 Baso % (Auto) 0.4 Neut # (Auto) 3.14 Lymph # (Auto) 1.01 L [place] # (Auto) 0.18 Eos # (Auto) 0.11 Baso # (Auto) 0.02 Immature Gran # (Auto) 0.02 PT 27.1 H INR 2.9 H Sodium 140 Potassium 3.5 Chloride 110 H Carbon Dioxide 26 Anion Gap 4.0 BUN 26 H Creatinine 1.14 Est Cr Clr Drug Dosing 65.8 Est GFR ( Amer) 72.5 Est GFR (Non-Af Amer) 62.6 BUN/Creatinine Ratio 22.5 H Glucose 192 H POC Glucose Calcium 8.5 Phosphorus 2.5 Magnesium 2.3 07/13/20 11:35 WBC RBC Hgb Hct MCV MCH MCHC RDW Std Deviation RDW Coeff of Lianne Plt Count MPV Immature Gran % (Auto) Neut % (Auto) Lymph % (Auto) [place] % (Auto) Eos % (Auto) Baso % (Auto) Neut # (Auto) Lymph # (Auto) [place] # (Auto) Eos # (Auto) Baso # (Auto) Immature Gran # (Auto) PT INR Sodium Potassium Chloride Carbon Dioxide Anion Gap BUN Creatinine Est Cr Clr Drug Dosing Est GFR ( Amer) Est GFR (Non-Af Amer) BUN/Creatinine Ratio Glucose POC Glucose 144 H Calcium Phosphorus Magnesium Medications Administered Current Inpatient Medications Acetaminophen (Acetaminophen 325 Mg Tab) 650 mg PO Q4H PRN PRN Reason: pain/fever Stop: 08/09/20 22:28 Last Admin: 07/12/20 10:06 Dose: 650 mg Documented by: Al Hydrox/Mg Hydrox/Simethicone (Aluminum/Magnesium Susp 30 Ml Udc) 30 ml PO Q6H PRN PRN Reason: Dyspepsia Stop: 08/09/20 22:28 Albuterol (Albuterol Hfa 8 Gm Inhaler) 2 puffs INH Q4H PRN PRN Reason: Wheezing Stop: 08/09/20 22:28 Albuterol (Albut/Ipratrop 3mg/0.5mg Neb 3 Ml Vial) 3 ml INH QID PRN PRN Reason: Shortness Of Breath Or Wheezing Stop: 08/09/20 22:28 Allopurinol (Allopurinol 100 Mg Tab) 200 mg PO HS KIRSTEN Stop: 08/10/20 20:59 Last Admin: 07/12/20 20:26 Dose: 200 mg Documented by: Atorvastatin Calcium (Atorvastatin 40 Mg Tab) 40 mg PO HS [facility] Stop: 08/10/20 20:59 Last Admin: 07/12/20 20:22 Dose: 40 mg Documented by: Carbidopa/Levodopa (Carbidopa/Levodopa 25/100mg Tab) 0.5 tab PO TID KIRSTEN Stop: 08/10/20 08:59 Last Admin: 07/13/20 13:15 Dose: 0.5 tab Documented by: Dextrose (Dextrose 50% 50 Ml Syringe) 25 - 50 ml IV UD PRN; Protocol PRN Reason: Hypoglycemia Protocol Stop: 08/09/20 22:28 Finasteride (Finasteride 5 Mg Tab) 5 mg PO QAM [facility] Stop: 08/10/20 08:59 Last Admin: 07/13/20 08:16 Dose: 5 mg Documented by: Gabapentin (Gabapentin 600 Mg Tab) 600 mg PO BID KIRSTEN Stop: 08/10/20 08:59 Last Admin: 07/13/20 08:15 Dose: 600 mg Documented by: Glucagon (Glucagon For Inj 1 Mg Vial) 1 mg SQ UD PRN; Protocol PRN Reason: Hypoglycemia Protocol Stop: 08/09/20 22:28 Glucose (Glucose 10 Tabs/Tube) 4 - 8 tabs PO UD PRN; Protocol PRN Reason: Hypoglycemia Protocol Stop: 08/09/20 22:28 Glucose (Glucose 40% Gel 15 Gm Tube) 15 - 30 gm PO UD PRN; Protocol PRN Reason: Hypoglycemia Protocol Stop: 08/09/20 22:28 Insulin Aspart (Insulin Aspart 100 Units/Ml 3 Ml Pen) 0 units SC ACHS KIRSTEN Stop: 08/09/20 22:44 Last Admin: 07/13/20 12:32 Dose: 1 units Documented by: Insulin Glargine (Insulin Glargine Solostar 100 Units/Ml 3 Ml Pen) 20 units SC BID [facility] Stop: 08/09/20 22:44 Last Admin: 07/13/20 08:18 Dose: 20 units Documented by: Levetiracetam (Levetiracetam 500 Mg Tab) 1,000 mg PO BID [facility] Stop: 08/10/20 08:59 Last Admin: 07/13/20 08:16 Dose: 1,000 mg Documented by: Magnesium Hydroxide (Magnesium Hydroxide Susp 30 Ml Udc) 30 ml PO Q6H PRN PRN Reason: Constipation Stop: 08/09/20 22:28 Last Admin: 07/11/20 20:43 Dose: 30 ml Documented by: Miscellaneous (Carbohydrates For Hypoglycemia ) 15 - 30 gm PO UD PRN PRN Reason: Hypoglycemia Protocol Stop: 08/09/20 22:28 Ondansetron HCl (Ondansetron Inj 2 Mg/Ml 2 Ml Vial) 4 mg IV Q6H PRN PRN Reason: Nausea Stop: 08/09/20 22:28 Polyethylene Glycol (Polyethylene (Miralax) 17 Gm Pack) 34 gm PO Q6H KIRSTEN Stop: 08/11/20 13:59 Last Admin: 07/13/20 12:32 Dose: Not Given Documented by: Prednisone (Prednisone 10 Mg Tablet) 10 mg PO DAILY [facility] Stop: 08/10/20 08:59 Last Admin: 07/13/20 08:17 Dose: 10 mg Documented by: Terbinafine HCl (Terbinafine Cr 30 Gm Tube) 1 appln EXT BID [facility] Stop: 08/11/20 20:59 Last Admin: 07/13/20 08:17 Dose: 1 appln Documented by: Topiramate (Topiramate 100 Mg Tab) 100 mg PO BID [facility] Stop: 08/10/20 08:59 Last Admin: 07/13/20 08:16 Dose: 100 mg Documented by: Triamcinolone Acetonide (Triamcinolone Acet 0.1% Oint 80 Gm Tube) 1 appln EXT Q12H PRN PRN Reason: pruritis Stop: 08/11/20 00:15 Last Admin: 07/12/20 10:07 Dose: 1 appln Documented by: Warfarin Sodium (Warfarin Sod 7.5 Mg Tab) 7.5 mg PO DAILY@1600 [facility] Stop: 08/10/20 15:59 Last Admin: 07/12/20 16:25 Dose: 7.5 mg Documented by: PG Care Time/CCT Total # of Minutes Spent Total Time Spent with Patient: Total time spent is greater than 50% in coordination of care (as documented) at patient's floor/unit and/or counseling patient: Coding Level of Care Code 94180 Subseq Hosp Care Lvl 3 Diagnoses Weakness R53.1 Chronic kidney disease, stage 3a N18.3 PAF (paroxysmal atrial fibrillation) I48.0 History of aortic valve replacement Z95.2 HLD (hyperlipidemia) E78.2 Hyperlipidemia type: mixed hyperlipidemia Diabetes E11.42; Z79.4 Diabetes mellitus complication detail: with polyneuropathy Diabetes mellitus complication status: with neurologic complications Diabetes mellitus snf insulin use: with snf use Diabetes mellitus type: type 2 Parkinsonism G20 Fall [id number].XXXA Interstitial lung disease J84.9 Severe protein-calorie malnutrition E43 Constipated K59.00 Constipation type: unspecified constipation type Tinea cruris B35.6 (1) Diabetes Diabetes mellitus complication detail: with polyneuropathy Diabetes mellitus complication status: with neurologic complications 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
[2020-07-13] MEDS: ACETAMINOPHEN 325 MG TAB PO PRN (15:24)
[2020-07-13] MEDS: WARFARIN SOD 7.5 MG TAB PO SCH (15:25)
[2020-07-13] MEDS: allopurinoL 100 MG TAB PO SCH (21:25)
[2020-07-13] MEDS: ATORVASTATIN 40 MG TAB PO SCH (21:25)
[2020-07-13] MEDS: TRIAMCINOLONE ACET 0.1% OINT 80 GM TUBE EXT PRN ×2 (21:34→21:51)
[2020-07-14 07:04] LABS: INR 3.1 (0.9-1.1); Prothrombin Time 29.1 Seconds (9.0-12.0)
[2020-07-14] MEDS: POLYETHYLENE (MIRALAX) 17 GM PACK PO SCH (07:59)
[2020-07-14] MEDS: predniSONE 10 MG TABLET PO SCH (07:59)
[2020-07-14] MEDS: FINASTERIDE 5 MG TAB PO SCH (07:59)
[2020-07-14] MEDS: GABAPENTIN 600 MG TAB PO SCH ×2 (07:59→20:31)
[2020-07-14] MEDS: CARBIDOPA/LEVODOPA 25/100MG TAB PO SCH ×3 (07:59→20:31)
[2020-07-14] MEDS: levETIRAcetam 500 MG TAB PO SCH ×2 (07:59→20:30)
[2020-07-14] MEDS: TERBINAFINE CR 30 GM TUBE EXT SCH ×2 (08:00→20:33)
[2020-07-14] MEDS: INSULIN ASPART 100 UNITS/ML 3 ML PEN SC SCH ×4 (08:00→20:36)
[2020-07-14] MEDS: TOPIRAMATE 100 MG TAB PO SCH ×2 (08:00→20:32)
[2020-07-14] MEDS: INSULIN GLARGINE SOLOSTAR 100 UNITS/ML 3 ML PEN SC SCH ×2 (08:01→20:36)
[2020-07-14] MEDS: ACETAMINOPHEN 325 MG TAB PO PRN ×2 (14:24→20:29)
--- NOTE | 2020-07-14 18:17 | Hospitalist Progress Note ---
Date of Service July 14, 2020 Assessment & Plan (1) Weakness: Xavi Bradford is a 75-year-old male with PMH significant for paroxysmal atrial fibrillation, mechanical aortic valve replacement, hyperlipidemia, diabetes, parkinsonism, interstitial lung disease on 2 L nasal cannula at night, lumbar spinal stenosis, and frequent falls; who presented to the ER for multiple concerns, in the setting of feeling short of breath and numerous/frequent falls. Increasing weakness and falls possibly due to a combination of lumbar spinal stenosis and Parkinson's Disease Weakness: -Patient with recent and frequent history of falls with recent hospitalization in May; during this admission initial recommendation was for SNF at [facility], however patient declined in favor of returning home MRI from 05/30/2020 it is as follows IMPRESSION: 1. No significant change in appearance of the lumbar spine since MRI of January 21, 2020. Status post L2-L4 laminectomy. No central canal stenosis. 2. Moderate to severe multilevel neural foraminal stenosis, most pronou nced at the left L3-L4 and bilateral L5-S1 neural foramen -PT/OT evaluations ordered anticipate him needing rehab, he is currently living alone, cannot live with family due to ongoing issues, has demonstrated that he falls a lot at home, concerned about safety -consult Dr. Agarwal, he can offer surgery but patient is very complicated medically, high risk of complications d/w the patient today, he wants to proceed with surgery, he understands the risks, states that he has no quality of life with the pain and instability would rather take risk of surgery than live like this spoke with Dr. Agarwal, plan for surgery next week (2) Chronic kidney disease, stage 3a: Cr is stable at this time, making urine electrolytes stable (3) PAF (paroxysmal atrial fibrillation): Paroxysmal atrial fibrillation: -History of paroxysmal atrial fibrillation -EKG in ED demonstrating concerns for return of atrial fibrillation without RVR -not on any rate controlling medication Continue home warfarin dosing-> INR is 3 can down grade off tele hold Coumadin starting today (4) History of aortic valve replacement: mchanical valve remains on coumadin hold Coumadin will need Lovenox bridge once INR is < 2 (5) HLD (hyperlipidemia): (6) Diabetes: Diabetes: -Known diabetic, last A1c 7.3 on 05/29/2020 -Home regimen including Trulicity, glargine, aspart -Temporarily will hold Trulicity -BSG's ACHS, with SSI and glargine, monitor for hypo and hyperglycemic episodes (7) Parkinsonism: Parkinsonism: -Follows with neurology (Dr. Sheikh) last seen 07/02 was started on Sinemet 0.5 tab 3 times daily -Continue Sinemet (8) Fall: no injury seen on CT head or cervical spine (9) Interstitial lung disease: Interstitial lung disease: -Oxygen saturations 87% on presentation to ED, with improvement on 2 L NC -Utilizes 2 L NC at night at baseline -Inconsistent utilization of albuterol inhalers at home -Albuterol 2 puffs q4h PRN he saw Dr. Buckley in early June, plan to start Rituxan soon as outpatient, he has had his 2nd COVID vaccine shot (10) Severe protein-calorie malnutrition: encourage PO intake, supplements (11) Constipated: start Miralax 34gm q6 (he takes this at home, ordered by his PCP) constipation resolved, go back to 34gm qAM (12) Tinea cruris: Terbinafine cream BID likely due to ongoing Prednisone use rash is better past two days Admission and Anticipated Discharge Date Admission Date: July 10, 2020 Subjective patient doing well, pain is controlled, participating with therapy d/w Dr. Agarwal, plan for OR next week, will work on getting insurance auth will hold Coumadin starting today medically he is optimized had a loose stool today, back off on Miralax Review of Systems Review of Systems: All systems reviewed & are unremarkable except as noted in Subjective Musculoskeletal: + back pain, + stiffness and + muscle weakness; no neck pain Physical Exam Constitutional: WD/WN, vitals as above ENMT: Mouth: + poor dentition Neck: trachea midline, no thyromegaly Respiratory: normal respiratory effort, lungs clear to auscultation Cardiovascular: RRR, no murmur, no edema Gastrointestinal (Abdomen): normal bowel sounds, soft, nontender, no hepatosplenomegaly Musculoskeletal: Head/Neck/Chest: normocephalic, head atraumatic and neck supple Spine: + limited thoraco-lumbar ROM (due to pain) Extremities: extremities normal to inspection and strength 5/5 throughout Skin: + rash (inguinal folds and groin area, tinea cruris) Neurologic: patellar DTR's 2+ bilat, sensation intact and PERRL, EOMI, accommodation nl, no face palsy, no dysarthria Psychiatric: Orientation: alert, oriented x 3 and cooperative Affect: euthymic affect Lymphatic: no cervical or axillary lymphadenopathy Results & Data Results & Data ([facility]) Vital Signs (Past 12 Hours) Vital Signs Temp Pulse Resp BP BP Pulse Ox 07/14/20 15:17 36.8 C 66 20 129/68 98 07/14/20 12:05 136/79 07/14/20 12:04 36.6 C 62 18 92 07/14/20 07:00 36.4 C L 53 L 20 128/65 96 Laboratory Results Laboratory Results - last 24 hr 07/13/20 07/14/20 07/14/20 21:30 06:27 07:26 PT 29.1 H INR 3.1 H POC Glucose 151 H 103 H 07/14/20 07/14/20 11:54 16:34 PT INR POC Glucose 210 H 243 H Medications Administered Current Inpatient Medications Acetaminophen (Acetaminophen 325 Mg Tab) 650 mg PO Q4H PRN PRN Reason: pain/fever Stop: 08/09/20 22:28 Last Admin: 07/14/20 14:24 Dose: 650 mg Documented by: Al Hydrox/Mg Hydrox/Simethicone (Aluminum/Magnesium Susp 30 Ml Udc) 30 ml PO Q6H PRN PRN Reason: Dyspepsia Stop: 08/09/20 22:28 Albuterol (Albuterol Hfa 8 Gm Inhaler) 2 puffs INH Q4H PRN PRN Reason: Wheezing Stop: 08/09/20 22:28 Albuterol (Albut/Ipratrop 3mg/0.5mg Neb 3 Ml Vial) 3 ml INH QID PRN PRN Reason: Shortness Of Breath Or Wheezing Stop: 08/09/20 22:28 Allopurinol (Allopurinol 100 Mg Tab) 200 mg PO HS KIRSTEN Stop: 08/10/20 20:59 Last Admin: 07/13/20 21:25 Dose: 200 mg Documented by: Atorvastatin Calcium (Atorvastatin 40 Mg Tab) 40 mg PO HS KIRSTEN Stop: 08/10/20 20:59 Last Admin: 07/13/20 21:25 Dose: 40 mg Documented by: Carbidopa/Levodopa (Carbidopa/Levodopa 25/100mg Tab) 0.5 tab PO TID KIRSTEN Stop: 08/10/20 08:59 Last Admin: 07/14/20 14:17 Dose: 0.5 tab Documented by: Dextrose (Dextrose 50% 50 Ml Syringe) 25 - 50 ml IV UD PRN; Protocol PRN Reason: Hypoglycemia Protocol Stop: 08/09/20 22:28 Finasteride (Finasteride 5 Mg Tab) 5 mg PO QAM KIRSTEN Stop: 08/10/20 08:59 Last Admin: 07/14/20 07:59 Dose: 5 mg Documented by: Gabapentin (Gabapentin 600 Mg Tab) 600 mg PO BID KIRSTEN Stop: 08/10/20 08:59 Last Admin: 07/14/20 07:59 Dose: 600 mg Documented by: Glucagon (Glucagon For Inj 1 Mg Vial) 1 mg SQ UD PRN; Protocol PRN Reason: Hypoglycemia Protocol Stop: 08/09/20 22:28 Glucose (Glucose 10 Tabs/Tube) 4 - 8 tabs PO UD PRN; Protocol PRN Reason: Hypoglycemia Protocol Stop: 08/09/20 22:28 Glucose (Glucose 40% Gel 15 Gm Tube) 15 - 30 gm PO UD PRN; Protocol PRN Reason: Hypoglycemia Protocol Stop: 08/09/20 22:28 Insulin Aspart (Insulin Aspart 100 Units/Ml 3 Ml Pen) 0 units SC ACHS KIRSTEN Stop: 08/09/20 22:44 Last Admin: 07/14/20 17:01 Dose: 12 units Documented by: Insulin Glargine (Insulin Glargine Solostar 100 Units/Ml 3 Ml Pen) 20 units SC BID KIRSTEN Stop: 08/09/20 22:44 Last Admin: 07/14/20 08:01 Dose: 20 units Documented by: Levetiracetam (Levetiracetam 500 Mg Tab) 1,000 mg PO BID KIRSTEN Stop: 08/10/20 08:59 Last Admin: 07/14/20 07:59 Dose: 1,000 mg Documented by: Magnesium Hydroxide (Magnesium Hydroxide Susp 30 Ml Udc) 30 ml PO Q6H PRN PRN Reason: Constipation Stop: 08/09/20 22:28 Last Admin: 07/11/20 20:43 Dose: 30 ml Documented by: Miscellaneous (Carbohydrates For Hypoglycemia ) 15 - 30 gm PO UD PRN PRN Reason: Hypoglycemia Protocol Stop: 08/09/20 22:28 Ondansetron HCl (Ondansetron Inj 2 Mg/Ml 2 Ml Vial) 4 mg IV Q6H PRN PRN Reason: Nausea Stop: 08/09/20 22:28 Polyethylene Glycol (Polyethylene (Miralax) 17 Gm Pack) 34 gm PO QAM [facility] Stop: 08/13/20 08:59 Last Admin: 07/14/20 07:59 Dose: 34 gm Documented by: Prednisone (Prednisone 10 Mg Tablet) 10 mg PO DAILY [facility] Stop: 08/10/20 08:59 Last Admin: 07/14/20 07:59 Dose: 10 mg Documented by: Terbinafine HCl (Terbinafine Cr 30 Gm Tube) 1 appln EXT BID [facility] Stop: 08/11/20 20:59 Last Admin: 07/14/20 08:00 Dose: 1 appln Documented by: Topiramate (Topiramate 100 Mg Tab) 100 mg PO BID [facility] Stop: 08/10/20 08:59 Last Admin: 07/14/20 08:00 Dose: 100 mg Documented by: Triamcinolone Acetonide (Triamcinolone Acet 0.1% Oint 80 Gm Tube) 1 appln EXT Q12H PRN PRN Reason: pruritis Stop: 08/11/20 00:15 Last Admin: 07/13/20 21:51 Dose: 1 appln Documented by: PG Care Time/CCT Total # of Minutes Spent Total Time Spent with Patient: Total time spent is greater than 50% in coordination of care (as documented) at patient's floor/unit and/or counseling patient: Coding Level of Care Code 23340 Subseq Hosp Care Lvl 2 Diagnoses Weakness R53.1 Chronic kidney disease, stage 3a N18.3 PAF (paroxysmal atrial fibrillation) I48.0 History of aortic valve replacement Z95.2 HLD (hyperlipidemia) E78.2 Hyperlipidemia type: mixed hyperlipidemia Diabetes E11.42; Z79.4 Diabetes mellitus complication detail: with polyneuropathy Diabetes mellitus complication status: with neurologic complications 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 Diabetes mellitus type: type 2 Parkinsonism G20 Fall [id number].XXXA Interstitial lung disease J84.9 Severe protein-calorie malnutrition E43 Constipated K59.00 Constipation type: unspecified constipation type Tinea cruris B35.6 (1) Diabetes Diabetes mellitus complication detail: with polyneuropathy Diabetes mellitus complication status: with neurologic complications 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
[2020-07-14] MEDS: ATORVASTATIN 40 MG TAB PO SCH (20:31)
[2020-07-14] MEDS: allopurinoL 100 MG TAB PO SCH (20:32)
[2020-07-15 07:34] LABS: INR 2.3 (0.9-1.1); Prothrombin Time 21.5 Seconds (9.0-12.0)
[2020-07-15] MEDS: POLYETHYLENE (MIRALAX) 17 GM PACK PO SCH (07:55)
[2020-07-15] MEDS: levETIRAcetam 500 MG TAB PO SCH ×2 (07:55→20:56)
[2020-07-15] MEDS: predniSONE 10 MG TABLET PO SCH (07:56)
[2020-07-15] MEDS: GABAPENTIN 600 MG TAB PO SCH ×2 (07:56→20:57)
[2020-07-15] MEDS: TOPIRAMATE 100 MG TAB PO SCH ×2 (07:56→20:58)
[2020-07-15] MEDS: FINASTERIDE 5 MG TAB PO SCH (07:56)
[2020-07-15] MEDS: CARBIDOPA/LEVODOPA 25/100MG TAB PO SCH ×3 (07:56→20:57)
[2020-07-15] MEDS: TERBINAFINE CR 30 GM TUBE EXT SCH ×2 (07:57→21:01)
[2020-07-15] MEDS: INSULIN GLARGINE SOLOSTAR 100 UNITS/ML 3 ML PEN SC SCH ×2 (07:58→20:58)
[2020-07-15] MEDS: INSULIN ASPART 100 UNITS/ML 3 ML PEN SC SCH ×4 (07:59→20:59)
--- NOTE | 2020-07-15 12:17 | Hospitalist Progress Note ---
Date of Service July 15, 2020 Assessment & Plan (1) Weakness: Xavi Bradford is a 75-year-old male with PMH significant for paroxysmal atrial fibrillation, mechanical aortic valve replacement, hyperlipidemia, diabetes, parkinsonism, interstitial lung disease on 2 L nasal cannula at night, lumbar spinal stenosis, and frequent falls; who presented to the ER for multiple concerns, in the setting of feeling short of breath and numerous/frequent falls. Increasing weakness and falls possibly due to a combination of lumbar spinal stenosis and Parkinson's Disease Weakness: -Patient with recent and frequent history of falls with recent hospitalization in May; during this admission initial recommendation was for SNF at [facility], however patient declined in favor of returning home MRI from 05/30/2020 it is as follows IMPRESSION: 1. No significant change in appearance of the lumbar spine since MRI of January 21, 2020. Status post L2-L4 laminectomy. No central canal stenosis. 2. Moderate to severe multilevel neural foraminal stenosis, most pronou nced at the left L3-L4 and bilateral L5-S1 neural foramen -PT/OT evaluations ordered anticipate him needing rehab, he is currently living alone, cannot live with family due to ongoing issues, has demonstrated that he falls a lot at home, concerned about safety -consult Dr. Agarwal, he can offer surgery but patient is very complicated medically, high risk of complications d/w the patient today, he wants to proceed with surgery, he understands the risks, states that he has no quality of life with the pain and instability would rather take risk of surgery than live like this spoke with Dr. Agarwal, plan for surgery next week holding Coumadin in anticipation (2) Chronic kidney disease, stage 3a: Cr is stable at this time, making urine electrolytes stable (3) PAF (paroxysmal atrial fibrillation): Paroxysmal atrial fibrillation: -History of paroxysmal atrial fibrillation -EKG in ED demonstrating concerns for return of atrial fibrillation without RVR -not on any rate controlling medication Continue home warfarin dosing-> INR is 3 can down grade off tele hold Coumadin, INR is 2.3 (4) History of aortic valve replacement: mchanical valve remains on coumadin hold Coumadin will need Lovenox bridge once INR is < 2 (5) HLD (hyperlipidemia): (6) Diabetes: Diabetes: -Known diabetic, last A1c 7.3 on 05/29/2020 -Home regimen including Trulicity, glargine, aspart -Temporarily will hold Trulicity -BSG's ACHS, with SSI and glargine, monitor for hypo and hyperglycemic episodes (7) Parkinsonism: Parkinsonism: -Follows with neurology (Dr. Sheikh) last seen 07/02 was started on Sinemet 0.5 tab 3 times daily -Continue Sinemet (8) Fall: no injury seen on CT head or cervical spine (9) Interstitial lung disease: Interstitial lung disease: -Oxygen saturations 87% on presentation to ED, with improvement on 2 L NC -Utilizes 2 L NC at night at baseline -Inconsistent utilization of albuterol inhalers at home -Albuterol 2 puffs q4h PRN he saw Dr. Buckley in early June, plan to start Rituxan soon as outpatient, he has had his 2nd COVID vaccine shot (10) Severe protein-calorie malnutrition: encourage PO intake, supplements (11) Constipated: start Miralax 34gm q6 (he takes this at home, ordered by his PCP) constipation resolved, go back to 34gm qAM, but now holding as stools are loose (12) Tinea cruris: Terbinafine cream BID likely due to ongoing Prednisone use rash is better past two days Admission and Anticipated Discharge Date Admission Date: July 10, 2020 Subjective patient doing fine, pain is controlled as best as can be still with a loose stool today eating and drinking well INR is down to 2.3 vitals stable Review of Systems Review of Systems: All systems reviewed & are unremarkable except as noted in Subjective Gastrointestinal: + diarrhea/loose stools Musculoskeletal: + back pain Physical Exam Constitutional: WD/WN, vitals as above ENMT: Mouth: + poor dentition Neck: trachea midline, no thyromegaly Respiratory: normal respiratory effort, lungs clear to auscultation Cardiovascular: RRR, no murmur, no edema Gastrointestinal (Abdomen): normal bowel sounds, soft, nontender, no hepatosplenomegaly Musculoskeletal: Head/Neck/Chest: normocephalic, head atraumatic and neck supple Spine: + limited thoraco-lumbar ROM (due to pain) Extremities: e xtremities normal to inspection and strength 5/5 throughout Skin: + rash (inguinal folds and groin area, tinea cruris) Neurologic: patellar DTR's 2+ bilat, sensation intact and PERRL, EOMI, accommodation nl, no face palsy, no dysarthria Psychiatric: Orientation: alert, oriented x 3 and cooperative Affect: euthymic affect Lymphatic: no cervical or axillary lymphadenopathy Results & Data Results & Data ([facility]) Vital Signs (Past 12 Hours) Vital Signs Temp Pulse Resp BP Pulse Ox 07/15/20 07:22 36.9 C 65 20 118/64 94 Laboratory Results Laboratory Results - last 24 hr 07/14/20 07/14/20 07/15/20 16:34 20:11 06:53 PT 21.5 H INR 2.3 H POC Glucose 243 H 216 H 07/15/20 07/15/20 07:39 11:22 PT INR POC Glucose 128 H 259 H Medications Administered Current Inpatient Medications Acetaminophen (Acetaminophen 325 Mg Tab) 650 mg PO Q4H PRN PRN Reason: pain/fever Stop: 08/09/20 22:28 Last Admin: 07/14/20 20:29 Dose: 650 mg Documented by: Al Hydrox/Mg Hydrox/Simethicone (Aluminum/Magnesium Susp 30 Ml Udc) 30 ml PO Q6H PRN PRN Reason: Dyspepsia Stop: 08/09/20 22:28 Albuterol (Albuterol Hfa 8 Gm Inhaler) 2 puffs INH Q4H PRN PRN Reason: Wheezing Stop: 08/09/20 22:28 Albuterol (Albut/Ipratrop 3mg/0.5mg Neb 3 Ml Vial) 3 ml INH QID PRN PRN Reason: Shortness Of Breath Or Wheezing Stop: 08/09/20 22:28 Allopurinol (Allopurinol 100 Mg Tab) 200 mg PO HS KIRSTEN Stop: 08/10/20 20:59 Last Admin: 07/14/20 20:32 Dose: 200 mg Documented by: Atorvastatin Calcium (Atorvastatin 40 Mg Tab) 40 mg PO HS KIRSTEN Stop: 08/10/20 20:59 Last Admin: 07/14/20 20:31 Dose: 40 mg Documented by: Carbidopa/Levodopa (Carbidopa/Levodopa 25/100mg Tab) 0.5 tab PO TID KIRSTEN Stop: 08/10/20 08:59 Last Admin: 07/15/20 07:56 Dose: 0.5 tab Documented by: Dextrose (Dextrose 50% 50 Ml Syringe) 25 - 50 ml IV UD PRN; Protocol PRN Reason: Hypoglycemia Protocol Stop: 08/09/20 22:28 Finasteride (Finasteride 5 Mg Tab) 5 mg PO QAM KIRSTEN Stop: 08/10/20 08:59 Last Admin: 07/15/20 07:56 Dose: 5 mg Documented by: Gabapentin (Gabapentin 600 Mg Tab) 600 mg PO BID KIRSTEN Stop: 08/10/20 08:59 Last Admin: 07/15/20 07:56 Dose: 600 mg Documented by: Glucagon (Glucagon For Inj 1 Mg Vial) 1 mg SQ UD PRN; Protocol PRN Reason: Hypoglycemia Protocol Stop: 08/09/20 22:28 Glucose (Glucose 10 Tabs/Tube) 4 - 8 tabs PO UD PRN; Protocol PRN Reason: Hypoglycemia Protocol Stop: 08/09/20 22:28 Glucose (Glucose 40% Gel 15 Gm Tube) 15 - 30 gm PO UD PRN; Protocol PRN Reason: Hypoglycemia Protocol Stop: 08/09/20 22:28 Insulin Aspart (Insulin Aspart 100 Units/Ml 3 Ml Pen) 0 units SC ACHS KIRSTEN Stop: 08/09/20 22:44 Last Admin: 07/15/20 07:59 Dose: 8 units Documented by: Insulin Glargine (Insulin Glargine Solostar 100 Units/Ml 3 Ml Pen) 20 units SC BID KIRSTEN Stop: 08/09/20 22:44 Last Admin: 07/15/20 07:58 Dose: 20 units Documented by: Levetiracetam (Levetiracetam 500 Mg Tab) 1,000 mg PO BID KIRSTEN Stop: 08/10/20 08:59 Last Admin: 07/15/20 07:55 Dose: 1,000 mg Documented by: Magnesium Hydroxide (Magnesium Hydroxide Susp 30 Ml Udc) 30 ml PO Q6H PRN PRN Reason: Constipation Stop: 08/09/20 22:28 Last Admin: 07/11/20 20:43 Dose: 30 ml Documented by: Miscellaneous (Carbohydrates For Hypoglycemia ) 15 - 30 gm PO UD PRN PRN Reason: Hypoglycemia Protocol Stop: 08/09/20 22:28 Ondansetron HCl (Ondansetron Inj 2 Mg/Ml 2 Ml Vial) 4 mg IV Q6H PRN PRN Reason: Nausea Stop: 08/09/20 22:28 Polyethylene Glycol (Polyethylene (Miralax) 17 Gm Pack) 34 gm PO QAM [facility] Stop: 08/13/20 08:59 Last Admin: 07/15/20 07:55 Dose: Not Given Documented by: Prednisone (Prednisone 10 Mg Tablet) 10 mg PO DAILY [facility] Stop: 08/10/20 08:59 Last Admin: 07/15/20 07:56 Dose: 10 mg Documented by: Terbinafine HCl (Terbinafine Cr 30 Gm Tube) 1 appln EXT BID [facility] Stop: 08/11/20 20:59 Last Admin: 07/15/20 07:57 Dose: 1 appln Documented by: Topiramate (Topiramate 100 Mg Tab) 100 mg PO BID [facility] Stop: 08/10/20 08:59 Last Admin: 07/15/20 07:56 Dose: 100 mg Documented by: Triamcinolone Acetonide (Triamcinolone Acet 0.1% Oint 80 Gm Tube) 1 appln EXT Q12H PRN PRN Reason: pruritis Stop: 08/11/20 00:15 Last Admin: 07/13/20 21:51 Dose: 1 appln Documented by: PG Care Time/CCT Total # of Minutes Spent Total Time Spent with Patient: Total time spent is greater than 50% in coordination of care (as documented) at patient's floor/unit and/or counseling patient: Coding Level of Care Code 27247 Subseq Hosp Care Lvl 2 Diagnoses Weakness R53.1 Chronic kidney disease, stage 3a N18.3 PAF (paroxysmal atrial fibrillation) I48.0 History of aortic valve replacement Z95.2 HLD (hyperlipidemia) E78.2 Hyperlipidemia type: mixed hyperlipidemia Diabetes E11.42; Z79.4 Diabetes mellitus type: type 2 Diabetes mellitus senior living insulin use: with intermission coordinator use Diabetes mellitus complication status: with neurologic complications Diabetes mellitus complication detail: with polyneuropathy Parkinsonism G20 Fall [id number] Interstitial lung disease J84.9 Severe protein-calorie malnutrition E43 Constipated K59.00 Constipation type: unspecified constipation type Tinea cruris B35.6 (1) HLD (hyperlipidemia) Hyperlipidemia type: mixed hyperlipidemia Qualified Code(s): E78.2 - Mixed hyperlipidemia (2) Diabetes Diabetes mellitus type: type 2 Diabetes mellitus senior living insulin use: with senior living use Diabetes mellitus complication status: with neurologic complications Diabetes mellitus complication detail: with polyneuropathy Qualified Code(s): E11.42 - Type 2 diabetes mellitus with diabetic polyneuropathy; Z79.4 - alf (current) use of insulin (3) Constipated Constipation type: unspecified constipation type Qualified Code(s): K59.00 - Constipation, unspecified
[2020-07-15] MEDS: ACETAMINOPHEN 325 MG TAB PO PRN (20:55)
[2020-07-15] MEDS: ATORVASTATIN 40 MG TAB PO SCH (20:57)
[2020-07-15] MEDS: allopurinoL 100 MG TAB PO SCH (20:58)
[2020-07-16] MEDS: POLYETHYLENE (MIRALAX) 17 GM PACK PO SCH ×2 (07:11→08:03)
[2020-07-16 07:25] LABS: INR 1.3 (0.9-1.1); Prothrombin Time 13.2 Seconds (9.0-12.0)
[2020-07-16] MEDS: levETIRAcetam 500 MG TAB PO SCH ×2 (07:58→20:54)
[2020-07-16] MEDS: GABAPENTIN 600 MG TAB PO SCH ×2 (07:59→20:58)
[2020-07-16] MEDS: FINASTERIDE 5 MG TAB PO SCH (08:00)
[2020-07-16] MEDS: predniSONE 10 MG TABLET PO SCH (08:00)
[2020-07-16] MEDS: CARBIDOPA/LEVODOPA 25/100MG TAB PO SCH ×3 (08:01→20:56)
[2020-07-16] MEDS: TOPIRAMATE 100 MG TAB PO SCH ×2 (08:03→20:57)
[2020-07-16] MEDS: TRIAMCINOLONE ACET 0.1% OINT 80 GM TUBE EXT PRN (08:04)
[2020-07-16] MEDS: TERBINAFINE CR 30 GM TUBE EXT SCH ×2 (08:05→20:55)
[2020-07-16] MEDS: ACETAMINOPHEN 325 MG TAB PO PRN (08:07)
[2020-07-16] MEDS: INSULIN GLARGINE SOLOSTAR 100 UNITS/ML 3 ML PEN SC SCH ×2 (08:08→20:55)
[2020-07-16] MEDS: INSULIN ASPART 100 UNITS/ML 3 ML PEN SC SCH ×4 (08:10→20:56)
[2020-07-16] MEDS: ONDANSETRON INJ 2 MG/ML 2 ML VIAL IV PRN (12:15)
[2020-07-16] MEDS ORDERED: KETOROLAC TROMETHAMINE 15 MG/ML VIAL IV ONE (12:30)
[2020-07-16] MEDS: ENOXAPARIN 100 MG/1ML SYR SQ SCH ×2 (13:25→23:48)
--- NOTE | 2020-07-16 14:46 | Orthopedic Progress Note ---
Date of Service July 16, 2020 Assessment & Plan (1) Neurogenic claudication due to lumbar spinal stenosis: Admission and Anticipated Discharge Date Admission Date: July 10, 2020 At this time I had discussion with this patient reviewing his status and treatment plan. He would be a candidate for a revision decompression and fusion L3-4, L4-5 and L5-S1. Risk benefits pros cons alternatives were outlined in detail. At this time we he is maximized from a medical standpoint. Will await his INR to come down to a reasonable level and anticipate surgery next Sunday. He understands and agrees. Subjective Patient continues to complain of chronic back and bilateral leg pain left greater than right. Physical Exam Physical Exam: On exam he is uncomfortable at this time. Continues to have some deficits to left lower extremity compared to the right. Results & Data ([facility]) Vital Signs (Past 12 Hours) Vital Signs Temp Pulse Resp BP Pulse Ox 07/16/20 07:52 36.3 C L 53 L 20 117/69 95
[2020-07-16] MEDS ORDERED: HYDROmorphone INJ 0.5 MG/0.5 ML SYR IV STA (15:40)
--- NOTE | 2020-07-16 15:44 | Hospitalist Progress Note ---
Date of Service July 16, 2020 Assessment & Plan (1) Neurogenic claudication due to lumbar spinal stenosis: severe disease at the L5 level, left leg radiculopathy will try Dilaudid 0.5mg IV and give Percocet PRN increase gabapentin to 600mg TID for better control of neuropathic pain plan for OR next week, Dr. Agarwal following on Lovenox now for full anticoagulation that can be held prior to surgery (2) Nerve root compression: see above pain control with Dilaudid, Percocet, gabapentin (3) Weakness: Increasing weakness and falls possibly due to a combination of lumbar spinal stenosis and Parkinson's Disease Weakness: -Patient with recent and frequent history of falls with recent hospitalization in May; during this admission initial recommendation was for SNF at [facility], however patient declined in favor of returning home MRI from 05/30/2020 it is as follows IMPRESSION: 1. No significant change in appearance of the lumbar spine since MRI of January 21, 2020. Status post L2-L4 laminectomy. No central canal stenosis. 2. Moderate to severe multilevel neural foraminal stenosis, most pronounced at the left L3-L4 and bilateral L5-S1 neural foramen -PT/OT evaluations ordered anticipate him needing rehab, he is currently living alone, cannot live with family due to ongoing issues, has demonstrated that he falls a lot at home, concerned about safety -consult Dr. Agarwal, he can offer surgery but patient is very complicated medically, high risk of complications d/w the patient, he wants to proceed with surgery, he understands the risks, states that he has no quality of life with the pain and instability would rather take risk of surgery than live like this spoke with Dr. Agarwal, plan for surgery next week holding Coumadin in anticipation, INR is 1.3 today, start Lovenox for full anticoagulation (4) Chronic kidney disease, stage 3a: Cr is stable at this time, making urine electrolytes stable (5) PAF (paroxysmal atrial fibrillation): Paroxysmal atrial fibrillation: -History of paroxysmal atrial fibrillation -EKG in ED demonstrating concerns for return of atrial fibrillation without RVR -not on any rate controlling medication Continue home warfarin dosing-> INR is 1.3, start Lovenox can down grade off tele (6) History of aortic valve replacement: mchanical valve remains on coumadin hold Coumadin start Lovenox today (7) HLD (hyperlipidemia): (8) Diabetes: Diabetes: -Known diabetic, last A1c 7.3 on 05/29/2020 -Home regimen including Trulicity, glargine, aspart -Temporarily will hold Trulicity -BSG's ACHS, with SSI and glargine, monitor for hypo and hyperglycemic episodes (9) Parkinsonism: Parkinsonism: -Follows with neurology (Dr. Sheikh) last seen 07/02 was started on Sinemet 0.5 tab 3 times daily -Continue Sinemet (10) Fall: no injury seen on CT head or cervical spine (11) Interstitial lung disease: Interstitial lung disease: -Oxygen saturations 87% on presentation to ED, with improvement on 2 L NC -Utilizes 2 L NC at night at baseline -Inconsistent utilization of albuterol inhalers at home -Albuterol 2 puffs q4h PRN he saw Dr. Buckley in early June, plan to start Rituxan soon as outpatient, he has had his 2nd COVID vaccine shot (12) Severe protein-calorie malnutrition: encourage PO intake, supplements (13) Constipated: continue Miralax 34gm daily (14) Tinea cruris: Terbinafine cream BID likely due to ongoing Prednisone use rash is better past three days Admission and Anticipated Discharge Date Admission Date: July 10, 2020 Subjective patient says his pain is really severe, terrible leg leg radiculopathy he could not sleep last night he is eating well, no BM today, he took Miralax this morning will try Dilaudid IV and he thinks he can take Percocet if he can get Zofran INR 1.3, started on Lovenox for full anticoagulation while awaiting surgery Review of Systems Review of Systems: All systems reviewed & are unremarkable except as noted in Subjective Constitutional: + weakness; no fever, no chills, no sweats and no fatigue Respiratory: no cough and no dyspnea Cardiovascular: no chest pain, no palpitations, no syncope and no edema Gastrointestinal: + constipation; no abdominal pain, no nausea and no vomiting Musculoskeletal: + back pain and + radicular pain (left leg) Physical Exam Constitutional: WD/WN, vitals as above ENMT: Mouth: + poor dentition Neck: trachea midline, no thyromegaly Respiratory: normal respiratory effort, lungs clear to auscultation Cardiovascular: RRR, no murmur, no edema Gastrointestinal (Abdomen): normal bowel sounds, soft, nontender, no hepatosplenomegaly Musculoskeletal: Head/Neck/Chest: normocephalic, head atraumatic and neck supple Spine: + limited thoraco-lumbar ROM (due to pain) Extremities: extremities normal to inspection and strength 5/5 throughout Skin: + rash (inguinal folds and groin area, tinea cruris) Neurologic: patellar DTR's 2+ bilat, sensation intact and PERRL, EOMI, accommodation nl, no face palsy, no dysarthria Psychiatric: Orientation: alert, oriented x 3 and cooperative Affect: euthymic affect Lymphatic: no cervical or axillary lymphadenopathy Results & Data Results & Data ([facility]) Vital Signs (Past 12 Hours) Vital Signs Temp Pulse Resp BP Pulse Ox 07/16/20 07:52 36.3 C L 53 L 20 117/69 95 Laboratory Results Laboratory Results - last 24 hr 07/15/20 07/15/20 07/16/20 16:28 20:42 06:59 PT 13.2 H INR 1.3 H POC Glucose 169 H 174 H 07/16/20 07/16/20 07:35 11:25 PT INR POC Glucose 131 H 218 H Medications Administered Current Inpatient Medications Acetaminophen (Acetaminophen 325 Mg Tab) 650 mg PO Q4H PRN PRN Reason: pain/fever Stop: 08/09/20 22:28 Last Admin: 07/16/20 08:07 Dose: 650 mg Documented by: Al Hydrox/Mg Hydrox/Simethicone (Aluminum/Magnesium Susp 30 Ml Udc) 30 ml PO Q6H PRN PRN Reason: Dyspepsia Stop: 08/09/20 22:28 Albuterol (Albuterol Hfa 8 Gm Inhaler) 2 puffs INH Q4H PRN PRN Reason: Wheezing Stop: 08/09/20 22:28 Albuterol (Albut/Ipratrop 3mg/0.5mg Neb 3 Ml Vial) 3 ml INH QID PRN PRN Reason: Shortness Of Breath Or Wheezing Stop: 08/09/20 22:28 Allopurinol (Allopurinol 100 Mg Tab) 200 mg PO HS [facility] Stop: 08/10/20 20:59 Last Admin: 07/15/20 20:58 Dose: 200 mg Documented by: Atorvastatin Calcium (Atorvastatin 40 Mg Tab) 40 mg PO HS [facility] Stop: 08/10/20 20:59 Last Admin: 07/15/20 20:57 Dose: 40 mg Documented by: Carbidopa/Levodopa (Carbidopa/Levodopa 25/100mg Tab) 0.5 tab PO TID KIRSTEN Stop: 08/10/20 08:59 Last Admin: 07/16/20 13:25 Dose: 0.5 tab Documented by: Dextrose (Dextrose 50% 50 Ml Syringe) 25 - 50 ml IV UD PRN; Protocol PRN Reason: Hypoglycemia Protocol Stop: 08/09/20 22:28 Enoxaparin Sodium (Enoxaparin 100 Mg/1ml Syr) 90 mg SQ Q12 KIRSTEN Stop: 08/15/20 12:59 Last Admin: 07/16/20 13:25 Dose: 90 mg Documented by: Finasteride (Finasteride 5 Mg Tab) 5 mg PO QAM KIRSTEN Stop: 08/10/20 08:59 Last Admin: 07/16/20 08:00 Dose: 5 mg Documented by: Gabapentin (Gabapentin 600 Mg Tab) 600 mg PO BID KIRSTEN Stop: 08/10/20 08:59 Last Admin: 07/16/20 07:59 Dose: 600 mg Documented by: Glucagon (Glucagon For Inj 1 Mg Vial) 1 mg SQ UD PRN; Protocol PRN Reason: Hypoglycemia Protocol Stop: 08/09/20 22:28 Glucose (Glucose 10 Tabs/Tube) 4 - 8 tabs PO UD PRN; Protocol PRN Reason: Hypoglycemia Protocol Stop: 08/09/20 22:28 Glucose (Glucose 40% Gel 15 Gm Tube) 15 - 30 gm PO UD PRN; Protocol PRN Reason: Hypoglycemia Protocol Stop: 08/09/20 22:28 Insulin Aspart (Insulin Aspart 100 Units/Ml 3 Ml Pen) 0 units SC ACHS KIRSTEN Stop: 08/09/20 22:44 Last Admin: 07/16/20 12:13 Dose: 4 units Documented by: Insulin Glargine (Insulin Glargine Solostar 100 Units/Ml 3 Ml Pen) 20 units SC BID KIRSTEN Stop: 08/09/20 22:44 Last Admin: 07/16/20 08:08 Dose: 20 units Documented by: Levetiracetam (Levetiracetam 500 Mg Tab) 1,000 mg PO BID KIRSTEN Stop: 08/10/20 08:59 Last Admin: 07/16/20 07:58 Dose: 1,000 mg Documented by: Magnesium Hydroxide (Magnesium Hydroxide Susp 30 Ml Udc) 30 ml PO Q6H PRN PRN Reason: Constipation Stop: 08/09/20 22:28 Last Admin: 07/11/20 20:43 Dose: 30 ml Documented by: Miscellaneous (Carbohydrates For Hypoglycemia ) 15 - 30 gm PO UD PRN PRN Reason: Hypoglycemia Protocol Stop: 08/09/20 22:28 Ondansetron HCl (Ondansetron Inj 2 Mg/Ml 2 Ml Vial) 4 mg IV Q6H PRN PRN Reason: Nausea Stop: 08/09/20 22:28 Last Admin: 07/16/20 12:15 Dose: 4 mg Documented by: Oxycodone/Acetaminophen (Oxycodone/Acetaminophen 5mg/325mg Tab) 1 tab PO Q6H PRN PRN Reason: Pain Stop: 07/30/20 15:39 Polyethylene Glycol (Polyethylene (Miralax) 17 Gm Pack) 34 gm PO QAM [facility] Stop: 08/13/20 08:59 Last Admin: 07/16/20 08:03 Dose: 34 gm Documented by: Prednisone (Prednisone 10 Mg Tablet) 10 mg PO DAILY [facility] Stop: 08/10/20 08:59 Last Admin: 07/16/20 08:00 Dose: 10 mg Documented by: Terbinafine HCl (Terbinafine Cr 30 Gm Tube) 1 appln EXT BID [facility] Stop: 08/11/20 20:59 Last Admin: 07/16/20 08:05 Dose: 1 appln Documented by: Topiramate (Topiramate 100 Mg Tab) 100 mg PO BID [facility] Stop: 08/10/20 08:59 Last Admin: 07/16/20 08:03 Dose: 100 mg Documented by: Triamcinolone Acetonide (Triamcinolone Acet 0.1% Oint 80 Gm Tube) 1 appln EXT Q12H PRN PRN Reason: pruritis Stop: 08/11/20 00:15 Last Admin: 07/16/20 08:04 Dose: 1 appln Documented by: PG Care Time/CCT Total # of Minutes Spent Total Time Spent with Patient: Total time spent is greater than 50% in coordination of care (as documented) at patient's floor/unit and/or counseling patient: Coding Level of Care Code 42807 Subseq Hosp Care Lvl 3 Diagnoses Neurogenic claudication due to lumbar spinal stenosis M48.062 Nerve root compression G54.9 Weakness R53.1 Chronic kidney disease, stage 3a N18.3 PAF (paroxysmal atrial fibrillation) I48.0 History of aortic valve replacement Z95.2 HLD (hyperlipidemia) E78.2 Hyperlipidemia type: mixed hyperlipidemia Diabetes E11.42; Z79.4 Diabetes mellitus complication detail: with polyneuropathy Diabetes mellitus complication status: with neurologic complications Diabetes mellitus nursing home insulin use: with nursing home use Diabetes mellitus type: type 2 Parkinsonism G20 Fall [id number].XXXA Interstitial lung disease J84.9 Severe protein-calorie malnutrition E43 Constipated K59.00 Constipation type: unspecified constipation type Tinea cruris B35.6 (1) Diabetes Diabetes mellitus complication detail: with polyneuropathy Diabetes mellitus complication status: with neurologic complications Diabetes mellitus nursing home insulin use: with nursing home use Diabetes mellitus type: type 2 Qualified Code(s): E11.42 - Type 2 diabetes mellitus with diabetic polyneuropathy; Z79.4 - intermediate accountant (current) use of insulin (2) HLD (hyperlipidemia) Hyperlipidemia type: mixed hyperlipidemia Qualified Code(s): E78.2 - Mixed hyperlipidemia (3) Constipated Constipation type: unspecified constipation type Qualified Code(s): K59.00 - Constipation, unspecified
[2020-07-16] MEDS: allopurinoL 100 MG TAB PO SCH (20:57)
[2020-07-16] MEDS: ATORVASTATIN 40 MG TAB PO SCH (20:58)
[2020-07-16] MEDS: oxyCODONE/ACETAMINOPHEN 5mg/325mg TAB PO PRN (21:11)
[2020-07-17] MEDS: oxyCODONE/ACETAMINOPHEN 5mg/325mg TAB PO PRN ×4 (04:25→23:29)
[2020-07-17 07:30] LABS: Hematocrit (blood only) 31.3 % (42-52); Hemoglobin 10.2 g/dL (14.0-18.0); Mean Corpuscular Hemoglobin 27.3 pg (25-34); Mean Corpuscular Hgb Conc 32.6 g/dL (32-36); Mean Corpuscular Volume 83.9 fL (80-100); Mean Platelet Volume 9.8 fL (7.4-10.4); Platelet Count 172 K/uL (130-400); RDW Coefficient of Variation 15.4 % (11.5-14.5); RDW Standard Deviation 47.9 fL (36.4-46.3); Red Blood Count 3.73 M/uL (4.7-6.1); White Blood Count 4.86 K/uL (4.8-10.8)
[2020-07-17 07:46] LABS: INR 1.2 (0.9-1.1); Prothrombin Time 11.9 Seconds (9.0-12.0)
[2020-07-17 07:49] LABS: BUN Creatinine Ratio 23.2 (10-20); Calcium 8.7 mg/dl (8.5-10.1); Est GFR (African American) 67.5; Est GFR (Non-African American) 58.2; Potassium 3.7 mmol/L (3.5-5.1)
[2020-07-17] MEDS: CARBIDOPA/LEVODOPA 25/100MG TAB PO SCH ×3 (08:22→22:19)
[2020-07-17] MEDS: GABAPENTIN 600 MG TAB PO SCH ×3 (08:22→22:18)
[2020-07-17] MEDS: predniSONE 10 MG TABLET PO SCH (08:22)
[2020-07-17] MEDS: levETIRAcetam 500 MG TAB PO SCH ×2 (08:22→22:15)
[2020-07-17] MEDS: TERBINAFINE CR 30 GM TUBE EXT SCH ×2 (08:22→22:16)
[2020-07-17] MEDS: FINASTERIDE 5 MG TAB PO SCH (08:22)
[2020-07-17] MEDS: TOPIRAMATE 100 MG TAB PO SCH ×2 (08:22→22:20)
[2020-07-17] MEDS: ENOXAPARIN 100 MG/1ML SYR SQ SCH ×2 (08:22→22:18)
[2020-07-17] MEDS: INSULIN ASPART 100 UNITS/ML 3 ML PEN SC SCH ×4 (08:23→23:12)
[2020-07-17] MEDS: INSULIN GLARGINE SOLOSTAR 100 UNITS/ML 3 ML PEN SC SCH ×2 (08:23→23:11)
--- NOTE | 2020-07-17 12:11 | Hospitalist Progress Note ---
Date of Service July 17, 2020 Assessment & Plan (1) Neurogenic claudication due to lumbar spinal stenosis: severe disease at the L5 level, left leg radiculopathy good response to Dilaudid 0.5mg IV and Percocet PRN increase gabapentin to 600mg TID for better control of neuropathic pain plan for OR next week, Dr. Agarwal following on Lovenox now for full anticoagulation that can be held prior to surgery (2) Nerve root compression: see above pain control with Dilaudid, Percocet, gabapentin (3) Weakness: Increasing weakness and falls possibly due to a combination of lumbar spinal stenosis and Parkinson's Disease Weakness: -Patient with recent and frequent history of falls with recent hospitalization in May; during this admission initial recommendation was for SNF at [facility], however patient declined in favor of returning home MRI from 05/30/2020 it is as follows IMPRESSION: 1. No significant change in appearance of the lumbar spine since MRI of January 21, 2020. Status post L2-L4 laminectomy. No central canal stenosis. 2. Moderate to severe multilevel neural foraminal stenosis, most pronounced at the left L3-L4 and bilateral L5-S1 neural foramen -PT/OT evaluations ordered anticipate him needing rehab, he is currently living alone, cannot live with family due to ongoing issues, has demonstrated that he falls a lot at home, concerned about safety -consult Dr. Agarwal, he can offer surgery but patient is very complicated medically, high risk of complications d/w the patient, he wants to proceed with surgery, he understands the risks, states that he has no quality of life with the pain and instability would rather take risk of surgery than live like this spoke with Dr. Agarwal, plan for surgery next week holding Coumadin in anticipation, INR is 1.2 today, start Lovenox for full anticoagulation (4) Chronic kidney disease, stage 3a: Cr is stable at this time, making urine electrolytes stable (5) PAF (paroxysmal atrial fibrillation): Paroxysmal atrial fibrillation: -History of paroxysmal atrial fibrillation -EKG in ED demonstrating concerns for return of atrial fibrillation without RVR -not on any rate controlling medication Continue home warfarin dosing-> INR is 1.2, continue Lovenox (6) History of aortic valve replacement: mchanical valve remains on coumadin hold Coumadin start Lovenox (7) HLD (hyperlipidemia): (8) Diabetes: Diabetes: -Known diabetic, last A1c 7.3 on 05/29/2020 -Home regimen including Trulicity, glargine, aspart -Temporarily will hold Trulicity -BSG's ACHS, with SSI and glargine, monitor for hypo and hyperglycemic episodes (9) Parkinsonism: Parkinsonism: -Follows with neurology (Dr. Sheikh) last seen 07/02 was started on Sinemet 0.5 tab 3 times daily -Continue Sinemet (10) Fall: no injury seen on CT head or cervical spine (11) Interstitial lung disease: Interstitial lung disease: -Oxygen saturations 87% on presentation to ED, with improvement on 2 L NC -Utilizes 2 L NC at night at baseline -Inconsistent utilization of albuterol inhalers at home -Albuterol 2 puffs q4h PRN he saw Dr. Buckley in early June, plan to start Rituxan soon as outpatient, he has had his 2nd COVID vaccine shot (12) Severe protein-calorie malnutrition: encourage PO intake, supplements (13) Constipated: continue Miralax 34gm daily, no BM yesterday or today will order the Miralax q6 PRN if he wants a dose this afternoon he takes this dose at home (14) Tinea cruris: Terbinafine cream BID likely due to ongoing Prednisone use rash is better past four days Admission and Anticipated Discharge Date Admission Date: July 10, 2020 Subjective patient is doing a lot better today, pain well controlled no BM today, planning to take Miralax again today eating well, plans to do therapy later labs checked, CBC and BMP stable, INR 1.2 he is optimistic about surgery next week, he understands it will be difficult, trying to keep his strength up Review of Systems Review of Systems: All systems reviewed & are unremarkable except as noted in Subjective Musculoskeletal: + back pain and + radicular pain (left leg) Physical Exam Constitutional: WD/WN, vitals as above ENMT: Mouth: + poor dentition Neck: trachea midline, no thyromegaly Respiratory: normal respiratory effort, lungs clear to auscultation Cardiovascular: RRR, no murmur, no edema Gastrointestinal (Abdomen): normal bowel sounds, soft, nontender, no hepatosplenomegaly Musculoskeletal: Head/Neck/Chest: normocephalic, head atraumatic and neck supple Spine: + limited thoraco-lumbar ROM (due to pain) Extremities: extremities normal to inspection and strength 5/5 throughout Skin: + rash (inguinal folds and groin area, tinea cruris) Neurologic: patellar DTR's 2+ bilat, sensation intact and PERRL, EOMI, accommodation nl, no face palsy, no dysarthria Psychiatric: Orientation: alert, oriented x 3 and cooperative Affect: euthymic affect Lymphatic: no cervical or axillary lymphadenopathy Results & Data Results & Data ([facility]) Vital Signs (Past 12 Hours) Vital Signs Temp Pulse Resp BP Pulse Ox 07/17/20 07:21 36.2 C L 49 L 16 122/76 96 Laboratory Results Laboratory Results - last 24 hr 07/16/20 07/16/20 07/17/20 16:36 20:27 07:05 WBC RBC Hgb Hct MCV MCH MCHC RDW Std Deviation RDW Coeff of Lianne Plt Count MPV PT 11.9 INR 1.2 H Sodium Potassium Chloride Carbon Dioxide Anion Gap BUN Creatinine Est Cr Clr Drug Dosing Est GFR ( Amer) Est GFR (Non-Af Amer) BUN/Creatinine Ratio Glucose POC Glucose 174 H 244 H Calcium 07/17/20 07/17/20 07/17/20 07:05 07:05 07:32 WBC 4.86 RBC 3.73 L Hgb 10.2 L Hct 31.3 L MCV 83.9 MCH 27.3 MCHC 32.6 RDW Std Deviation 47.9 H RDW Coeff of Lianne 15.4 H Plt Count 172 MPV 9.8 PT INR Sodium 141 Potassium 3.7 Chloride 114 H Carbon Dioxide 21 Anion Gap 6.0 BUN 28 H Creatinine 1.21 Est Cr Clr Drug Dosing 62.0 Est GFR ( Amer) 67.5 Est GFR (Non-Af Amer) 58.2 BUN/Creatinine Ratio 23.2 H Glucose 99 POC Glucose 93 Calcium 8.7 07/17/20 11:32 WBC RBC Hgb Hct MCV MCH MCHC RDW Std Deviation RDW Coeff of Lianne Plt Count MPV PT INR Sodium Potassium Chloride Carbon Dioxide Anion Gap BUN Creatinine Est Cr Clr Drug Dosing Est GFR ( Amer) Est GFR (Non-Af Amer) BUN/Creatinine Ratio Glucose POC Glucose 182 H Calcium Medications Administered Current Inpatient Medications Acetaminophen (Acetaminophen 325 Mg Tab) 650 mg PO Q4H PRN PRN Reason: pain/fever Stop: 08/09/20 22:28 Last Admin: 07/16/20 08:07 Dose: 650 mg Documented by: Al Hydrox/Mg Hydrox/Simethicone (Aluminum/Magnesium Susp 30 Ml Udc) 30 ml PO Q6H PRN PRN Reason: Dyspepsia Stop: 08/09/20 22:28 Albuterol (Albuterol Hfa 8 Gm Inhaler) 2 puffs INH Q4H PRN PRN Reason: Wheezing Stop: 08/09/20 22:28 Albuterol (Albut/Ipratrop 3mg/0.5mg Neb 3 Ml Vial) 3 ml INH QID PRN PRN Reason: Shortness Of Breath Or Wheezing Stop: 08/09/20 22:28 Allopurinol (Allopurinol 100 Mg Tab) 200 mg PO HS KIRSTEN Stop: 08/10/20 20:59 Last Admin: 07/16/20 20:57 Dose: 200 mg Documented by: Atorvastatin Calcium (Atorvastatin 40 Mg Tab) 40 mg PO HS KIRSTEN Stop: 08/10/20 20:59 Last Admin: 07/16/20 20:58 Dose: 40 mg Documented by: Carbidopa/Levodopa (Carbidopa/Levodopa 25/100mg Tab) 0.5 tab PO TID KIRSTEN Stop: 08/10/20 08:59 Last Admin: 07/17/20 08:22 Dose: 0.5 tab Documented by: Dextrose (Dextrose 50% 50 Ml Syringe) 25 - 50 ml IV UD PRN; Protocol PRN Reason: Hypoglycemia Protocol Stop: 08/09/20 22:28 Enoxaparin Sodium (Enoxaparin 100 Mg/1ml Syr) 90 mg SQ Q12 KIRSTEN Stop: 08/15/20 12:59 Last Admin: 07/17/20 08:22 Dose: 90 mg Documented by: Finasteride (Finasteride 5 Mg Tab) 5 mg PO QAM KIRSTEN Stop: 08/10/20 08:59 Last Admin: 07/17/20 08:22 Dose: 5 mg Documented by: Gabapentin (Gabapentin 600 Mg Tab) 600 mg PO TID KIRSTEN Stop: 08/15/20 20:59 Last Admin: 07/17/20 08:22 Dose: 600 mg Documented by: Glucagon (Glucagon For Inj 1 Mg Vial) 1 mg SQ UD PRN; Protocol PRN Reason: Hypoglycemia Protocol Stop: 08/09/20 22:28 Glucose (Glucose 10 Tabs/Tube) 4 - 8 tabs PO UD PRN; Protocol PRN Reason: Hypoglycemia Protocol Stop: 08/09/20 22:28 Glucose (Glucose 40% Gel 15 Gm Tube) 15 - 30 gm PO UD PRN; Protocol PRN Reason: Hypoglycemia Protocol Stop: 08/09/20 22:28 Insulin Aspart (Insulin Aspart 100 Units/Ml 3 Ml Pen) 0 units SC ACHS [facility] Stop: 08/09/20 22:44 Last Admin: 07/17/20 12:05 Dose: 7 units Documented by: Insulin Glargine (Insulin Glargine Solostar 100 Units/Ml 3 Ml Pen) 20 units SC BID [facility] Stop: 08/09/20 22:44 Last Admin: 07/17/20 08:23 Dose: 20 units Documented by: Levetiracetam (Levetiracetam 500 Mg Tab) 1,000 mg PO BID [facility] Stop: 08/10/20 08:59 Last Admin: 07/17/20 08:22 Dose: 1,000 mg Documented by: Magnesium Hydroxide (Magnesium Hydroxide Susp 30 Ml Udc) 30 ml PO Q6H PRN PRN Reason: Constipation Stop: 08/09/20 22:28 Last Admin: 07/11/20 20:43 Dose: 30 ml Documented by: Miscellaneous (Carbohydrates For Hypoglycemia ) 15 - 30 gm PO UD PRN PRN Reason: Hypoglycemia Protocol Stop: 08/09/20 22:28 Ondansetron HCl (Ondansetron Inj 2 Mg/Ml 2 Ml Vial) 4 mg IV Q6H PRN PRN Reason: Nausea Stop: 08/09/20 22:28 Last Admin: 07/16/20 12:15 Dose: 4 mg Documented by: Oxycodone/Acetaminophen (Oxycodone/Acetaminophen 5mg/325mg Tab) 1 tab PO Q6H PRN PRN Reason: Pain Stop: 07/30/20 15:39 Last Admin: 07/17/20 10:39 Dose: 1 tab Documented by: Polyethylene Glycol (Polyethylene (Miralax) 17 Gm Pack) 34 gm PO QAM [facility] Stop: 08/13/20 08:59 Last Admin: 07/16/20 08:03 Dose: 34 gm Documented by: Prednisone (Prednisone 10 Mg Tablet) 10 mg PO DAILY [facility] Stop: 08/10/20 08:59 Last Admin: 07/17/20 08:22 Dose: 10 mg Documented by: Terbinafine HCl (Terbinafine Cr 30 Gm Tube) 1 appln EXT BID KIRSTEN Stop: 08/11/20 20:59 Last Admin: 07/17/20 08:22 Dose: 1 appln Documented by: Topiramate (Topiramate 100 Mg Tab) 100 mg PO BID KIRSTEN Stop: 08/10/20 08:59 Last Admin: 07/17/20 08:22 Dose: 100 mg Documented by: Triamcinolone Acetonide (Triamcinolone Acet 0.1% Oint 80 Gm Tube) 1 appln EXT Q12H PRN PRN Reason: pruritis Stop: 08/11/20 00:15 Last Admin: 07/16/20 08:04 Dose: 1 appln Documented by: PG Care Time/CCT Total # of Minutes Spent Total Time Spent with Patient: Total time spent is greater than 50% in coordination of care (as documented) at patient's floor/unit and/or counseling patient: Coding Level of Care Code 51772 Subseq Hosp Care Lvl 2 Diagnoses Neurogenic claudication due to lumbar spinal stenosis M48.062 Nerve root compression G54.9 Weakness R53.1 Chronic kidney disease, stage 3a N18.3 PAF (paroxysmal atrial fibrillation) I48.0 History of aortic valve replacement Z95.2 HLD (hyperlipidemia) E78.2 Hyperlipidemia type: mixed hyperlipidemia Diabetes E11.42; Z79.4 Diabetes mellitus complication detail: with polyneuropathy Diabetes mellitus complication status: with neurologic complications Diabetes mellitus long term care pharmacist insulin use: with long term care pharmacist use Diabetes mellitus type: type 2 Parkinsonism G20 Fall [id number] Interstitial lung disease J84.9 Severe protein-calorie malnutrition E43 Constipated K59.00 Constipation type: unspecified constipation type Tinea cruris B35.6 (1) Diabetes Diabetes mellitus complication detail: with polyneuropathy Diabetes mellitus complication status: with neurologic complications Diabetes mellitus long term care pharmacist insulin use: with long term care pharmacist use Diabetes mellitus type: type 2 Qualified Code(s): E11.42 - Type 2 diabetes mellitus with diabetic polyneuropathy; Z79.4 - terminal gauger (current) use of insulin (2) HLD (hyperlipidemia) Hyperlipidemia type: mixed hyperlipidemia Qualified Code(s): E78.2 - Mixed hyperlipidemia (3) Constipated Constipation type: unspecified constipation type Qualified Code(s): K59.00 - Constipation, unspecified
[2020-07-17] MEDS: ATORVASTATIN 40 MG TAB PO SCH (22:17)
[2020-07-17] MEDS: allopurinoL 100 MG TAB PO SCH (22:21)
[2020-07-17] MEDS: POLYETHYLENE (MIRALAX) 17 GM PACK PO PRN (23:10)
[2020-07-17] MEDS: MAGNESIUM HYDROXIDE SUSP 30 ML UDC PO PRN (23:10)
[2020-07-18 07:08] LABS: INR 1.1 (0.9-1.1); Prothrombin Time 11.3 Seconds (9.0-12.0)
[2020-07-18] MEDS: TERBINAFINE CR 30 GM TUBE EXT SCH ×2 (08:13→21:03)
[2020-07-18] MEDS: levETIRAcetam 500 MG TAB PO SCH ×2 (08:13→21:10)
[2020-07-18] MEDS: FINASTERIDE 5 MG TAB PO SCH (08:13)
[2020-07-18] MEDS: GABAPENTIN 600 MG TAB PO SCH ×3 (08:13→21:11)
[2020-07-18] MEDS: CARBIDOPA/LEVODOPA 25/100MG TAB PO SCH ×3 (08:14→21:12)
[2020-07-18] MEDS: INSULIN GLARGINE SOLOSTAR 100 UNITS/ML 3 ML PEN SC SCH ×2 (08:14→21:04)
[2020-07-18] MEDS: ENOXAPARIN 100 MG/1ML SYR SQ SCH ×2 (08:14→21:06)
[2020-07-18] MEDS: POLYETHYLENE (MIRALAX) 17 GM PACK PO PRN ×2 (08:14→15:30)
[2020-07-18] MEDS: oxyCODONE/ACETAMINOPHEN 5mg/325mg TAB PO PRN ×2 (08:14→20:57)
[2020-07-18] MEDS: TOPIRAMATE 100 MG TAB PO SCH ×2 (08:14→21:12)
[2020-07-18] MEDS: predniSONE 10 MG TABLET PO SCH (08:14)
[2020-07-18] MEDS: INSULIN ASPART 100 UNITS/ML 3 ML PEN SC SCH ×4 (08:15→21:05)
[2020-07-18] MEDS ORDERED: bisacodyL 10 MG SUPP PR STA (09:02)
--- NOTE | 2020-07-18 09:07 | Hospitalist Progress Note ---
Date of Service July 18, 2020 Assessment & Plan (1) Neurogenic claudication due to lumbar spinal stenosis: severe disease at the L5 level, left leg radiculopathy good response to Percocet PRN increased gabapentin to 600mg TID for better control of neuropathic pain, working well, no increased lethargy plan for OR next week, Dr. Agarwal following, he will determine timing on Lovenox now for full anticoagulation that can be held prior to surgery (2) Nerve root compression: see above pain control with Percocet, gabapentin 600mg TID (3) Weakness: Increasing weakness and falls possibly due to a combination of lumbar spinal stenosis and Parkinson's Disease Weakness: -Patient with recent and frequent history of falls with recent hospitalization in May; during this admission initial recommendation was for SNF at [facility], however patient declined in favor of returning home MRI from 05/30/2020 it is as follows IMPRESSION: 1. No significant change in appearance of the lumbar spine since MRI of January 21, 2020. Status post L2-L4 laminectomy. No central canal stenosis. 2. Moderate to severe multilevel neural foraminal stenosis, most pronounced at the left L3-L4 and bilateral L5-S1 neural foramen -PT/OT evaluations ordered anticipate him needing rehab, he is currently living alone, cannot live with family due to ongoing issues, has demonstrated that he falls a lot at home, concerned about safety -consult Dr. Agarwal, he can offer surgery but patient is very complicated medically, high risk of complications d/w the patient, he wants to proceed with surgery, he understands the risks, states that he has no quality of life with the pain and instability would rather take risk of surgery than live like this spoke with Dr. Agarwal, plan for surgery next week holding Coumadin in anticipation, INR is 1.1 today, continue Lovenox for full anticoagulation (4) Chronic kidney disease, stage 3a: Cr is stable at this time, making urine electrolytes stable (5) PAF (paroxysmal atrial fibrillation): Paroxysmal atrial fibrillation: -History of paroxysmal atrial fibrillation -EKG in ED demonstrating concerns for return of atrial fibrillation without RVR -not on any rate controlling medication Continue home warfarin dosing-> INR is 1.2, continue Lovenox (6) History of aortic valve replacement: mchanical valve remains on coumadin hold Coumadin Lovenox (7) HLD (hyperlipidemia): (8) Diabetes: Diabetes: -Known diabetic, last A1c 7.3 on 05/29/2020 -Home regimen including Trulicity, glargine, aspart -Temporarily will hold Trulicity -BSG's ACHS, with SSI and glargine, monitor for hypo and hyperglycemic episodes (9) Parkinsonism: Parkinsonism: -Follows with neurology (Dr. 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 Buckley in early June, plan to start Rituxan soon as outpatient, he has had his 2nd COVID vaccine shot on hold for now while we work on correcting his lumbar spine issues (12) Severe protein-calorie malnutrition: encourage PO intake, supplements (13) Constipated: will order the Miralax 34gm q6 PRN (he takes this dose at home) still not effective, will give Dulcolax suppository today (14) Tinea cruris: Terbinafine cream BID likely due to ongoing Prednisone use rash is better, would continue for two weeks likely to recur as long as he is on Prednisone Admission and Anticipated Discharge Date Admission Date: July 10, 2020 Subjective patient still cannot move his bowels despite Miralax q6 requesting suppository, will try one this morning his pain is better controlled though so he is happy no issues breathing INR is 1.1, glucose is controlled eating well, no chest pain, no fever/chills, no cough Review of Systems Review of Systems: All systems reviewed & are unremarkable except as noted in Subjective Respiratory: no cough and no dyspnea Cardiovascular: no chest pain Gastrointestinal: + constipation Musculoskeletal: + back pain and + radicular pain (left leg) Physical Exam Constitutional: WD/WN, vitals as above ENMT: Mouth: + poor dentition Neck: trachea midline, no thyromegaly Respiratory: normal respiratory effort, lungs clear to auscultation Cardiovascular: RRR, no murmur, no edema Gastrointestinal (Abdomen): normal bowel sounds, soft, nontender, no hepatosplenomegaly Musculoskeletal: Head/Neck/Chest: normocephalic, head atraumatic and neck supple Spine: + limited thoraco-lumbar ROM (due to pain) Extremities: extremities normal to inspection and strength 5/5 throughout Neurologic: patellar DTR's 2+ bilat, sensation intact and PERRL, EOMI, accommodation nl, no face palsy, no dysarthria Psychiatric: Orientation: alert, oriented x 3 and cooperative Affect: euthymic affect Lymphatic: no cervical or axillary lymphadenopathy Results & Data Results & Data ([facility]) Vital Signs (Past 12 Hours) Vital Signs Temp Pulse Resp BP BP Pulse Ox 07/18/20 07:09 36.5 C 54 L 16 104/57 L 96 07/17/20 22:59 36.6 C 68 16 115/66 94 Laboratory Results Laboratory Results - last 24 hr 07/17/20 07/17/20 07/17/20 11:32 16:40 20:07 PT INR POC Glucose 182 H 179 H 207 H 07/18/20 07/18/20 06:22 07:42 PT 11.3 INR 1.1 POC Glucose 142 H Medications Administered Current Inpatient Medications Acetaminophen (Acetaminophen 325 Mg Tab) 650 mg PO Q4H PRN PRN Reason: pain/fever Stop: 08/09/20 22:28 Last Admin: 07/16/20 08:07 Dose: 650 mg Documented by: Al Hydrox/Mg Hydrox/Simethicone (Aluminum/Magnesium Susp 30 Ml Udc) 30 ml PO Q6H PRN PRN Reason: Dyspepsia Stop: 08/09/20 22:28 Albuterol (Albuterol Hfa 8 Gm Inhaler) 2 puffs INH Q4H PRN PRN Reason: Wheezing Stop: 08/09/20 22:28 Albuterol (Albut/Ipratrop 3mg/0.5mg Neb 3 Ml Vial) 3 ml INH QID PRN PRN Reason: Shortness Of Breath Or Wheezing Stop: 08/09/20 22:28 Allopurinol (Allopurinol 100 Mg Tab) 200 mg PO HS KIRSTEN Stop: 08/10/20 20:59 Last Admin: 07/17/20 22:21 Dose: 200 mg Documented by: Atorvastatin Calcium (Atorvastatin 40 Mg Tab) 40 mg PO HS KIRSTEN Stop: 08/10/20 20:59 Last Admin: 07/17/20 22:17 Dose: 40 mg Documented by: Bisacodyl (Bisacodyl 10 Mg Supp) 10 mg VT NOW STA Stop: 07/18/20 09:03 Carbidopa/Levodopa (Carbidopa/Levodopa 25/100mg Tab) 0.5 tab PO TID KIRSTEN Stop: 08/10/20 08:59 Last Admin: 07/18/20 08:14 Dose: 0.5 tab Documented by: Dextrose (Dextrose 50% 50 Ml Syringe) 25 - 50 ml IV UD PRN; Protocol PRN Reason: Hypoglycemia Protocol Stop: 08/09/20 22:28 Enoxaparin Sodium (Enoxaparin 100 Mg/1ml Syr) 90 mg SQ Q12 KIRSTEN Stop: 08/15/20 12:59 Last Admin: 07/18/20 08:14 Dose: 90 mg Documented by: Finasteride (Finasteride 5 Mg Tab) 5 mg PO QAM KIRSTEN Stop: 08/10/20 08:59 Last Admin: 07/18/20 08:13 Dose: 5 mg Documented by: Gabapentin (Gabapentin 600 Mg Tab) 600 mg PO TID KIRSTEN Stop: 08/15/20 20:59 Last Admin: 07/18/20 08:13 Dose: 600 mg Documented by: Glucagon (Glucagon For Inj 1 Mg Vial) 1 mg SQ UD PRN; Protocol PRN Reason: Hypoglycemia Protocol Stop: 08/09/20 22:28 Glucose (Glucose 10 Tabs/Tube) 4 - 8 tabs PO UD PRN; Protocol PRN Reason: Hypoglycemia Protocol Stop: 08/09/20 22:28 Glucose (Glucose 40% Gel 15 Gm Tube) 15 - 30 gm PO UD PRN; Protocol PRN Reason: Hypoglycemia Protocol Stop: 08/09/20 22:28 Insulin Aspart (Insulin Aspart 100 Units/Ml 3 Ml Pen) 0 units SC ACHS KIRSTEN Stop: 08/09/20 22:44 Last Admin: 07/18/20 08:15 Dose: 8 units Documented by: Insulin Glargine (Insulin Glargine Solostar 100 Units/Ml 3 Ml Pen) 20 units SC BID KIRSTEN Stop: 08/09/20 22:44 Last Admin: 07/18/20 08:14 Dose: 20 units Documented by: Levetiracetam (Levetiracetam 500 Mg Tab) 1,000 mg PO BID KIRSTEN Stop: 08/10/20 08:59 Last Admin: 07/18/20 08:13 Dose: 1,000 mg Documented by: Magnesium Hydroxide (Magnesium Hydroxide Susp 30 Ml Udc) 30 ml PO Q6H PRN PRN Reason: Constipation Stop: 08/09/20 22:28 Last Admin: 07/17/20 23:10 Dose: 30 ml Documented by: Miscellaneous (Carbohydrates For Hypoglycemia ) 15 - 30 gm PO UD PRN PRN Reason: Hypoglycemia Protocol Stop: 08/09/20 22:28 Ondansetron HCl (Ondansetron Inj 2 Mg/Ml 2 Ml Vial) 4 mg IV Q6H PRN PRN Reason: Nausea Stop: 08/09/20 22:28 Last Admin: 07/16/20 12:15 Dose: 4 mg Documented by: Oxycodone/Acetaminophen (Oxycodone/Acetaminophen 5mg/325mg Tab) 1 tab PO Q6H PRN PRN Reason: Pain Stop: 07/30/20 15:39 Last Admin: 07/18/20 08:14 Dose: 1 tab Documented by: Polyethylene Glycol (Polyethylene (Miralax) 17 Gm Pack) 34 gm PO Q6 PRN PRN Reason: Constipation Stop: 08/16/20 17:59 Last Admin: 07/18/20 08:14 Dose: 34 gm Documented by: Prednisone (Prednisone 10 Mg Tablet) 10 mg PO DAILY KIRSTEN Stop: 08/10/20 08:59 Last Admin: 07/18/20 08:14 Dose: 10 mg Documented by: Terbinafine HCl (Terbinafine Cr 30 Gm Tube) 1 appln EXT BID KIRSTEN Stop: 08/11/20 20:59 Last Admin: 07/18/20 08:13 Dose: 1 appln Documented by: Topiramate (Topiramate 100 Mg Tab) 100 mg PO BID KIRSTEN Stop: 08/10/20 08:59 Last Admin: 07/18/20 08:14 Dose: 100 mg Documented by: Triamcinolone Acetonide (Triamcinolone Acet 0.1% Oint 80 Gm Tube) 1 appln EXT Q12H PRN PRN Reason: pruritis Stop: 08/11/20 00:15 Last Admin: 07/16/20 08:04 Dose: 1 appln Documented by: PG Care Time/CCT Total # of Minutes Spent Total Time Spent with Patient: Total time spent is greater than 50% in coordination of care (as documented) at patient's floor/unit and/or counseling patient: Coding Level of Care Code 54919 Subseq Hosp Care Lvl 2 Diagnoses Neurogenic claudication due to lumbar spinal stenosis M48.062 Nerve root compression G54.9 Weakness R53.1 Chronic kidney disease, stage 3a N18.3 PAF (paroxysmal atrial fibrillation) I48.0 History of aortic valve replacement Z95.2 HLD (hyperlipidemia) E78.2 Hyperlipidemia type: mixed hyperlipidemia Diabetes E11.42; Z79.4 Diabetes mellitus type: type 2 Diabetes mellitus room attendants insulin use: with room attendants use Diabetes mellitus complication status: with neurologic complications Diabetes mellitus complication detail: with polyneuropathy Parkinsonism G20 Fall [id number] Interstitial lung disease J84.9 Severe protein-calorie malnutrition E43 Constipated K59.00 Constipation type: unspecified constipation type Tinea cruris B35.6 (1) HLD (hyperlipidemia) Hyperlipidemia type: mixed hyperlipidemia Qualified Code(s): E78.2 - Mixed hyperlipidemia (2) Diabetes Diabetes mellitus type: type 2 Diabetes mellitus room attendants insulin use: with room attendants use Diabetes mellitus complication status: with neurologic complications Diabetes mellitus complication detail: with polyneuropathy Qualified Code(s): E11.42 - Type 2 diabetes mellitus with diabetic polyneuropathy; Z79.4 - scientist/engineer (current) use of insulin (3) Constipated Constipation type: unspecified constipation type Qualified Code(s): K59.00 - Constipation, unspecified
--- NOTE | 2020-07-18 11:06 | Orthopedic Progress Note ---
Date of Service July 18, 2020 Assessment & Plan (1) Neurogenic claudication due to lumbar spinal stenosis: Admission and Anticipated Discharge Date Admission Date: July 10, 2020 Lungs yesterday with the patient regarding his status and planned procedure. We will plan for a revision decompression fusion L3-4, L4-5 and L5-S1 Sunday. Risk benefits pros cons and alternatives again outlined in detail. Subjective Patient complaining of back and bilateral leg pain Physical Exam Physical Exam: Patient is in bed. Exam essentially unchanged. Results & Data ([facility]) Vital Signs (Past 12 Hours) Vital Signs Temp Pulse Resp BP Pulse Ox 07/18/20 07:09 36.5 C 54 L 16 104/57 L 96
[2020-07-18] MEDS: ONDANSETRON INJ 2 MG/ML 2 ML VIAL IV PRN (20:57)
[2020-07-18] MEDS: ATORVASTATIN 40 MG TAB PO SCH (21:11)
[2020-07-18] MEDS: allopurinoL 100 MG TAB PO SCH (21:13)
[2020-07-19 06:59] LABS: Hematocrit (blood only) 31.8 % (42-52); Hemoglobin 10.2 g/dL (14.0-18.0); Mean Corpuscular Hemoglobin 27.3 pg (25-34); Mean Corpuscular Hgb Conc 32.1 g/dL (32-36); Mean Platelet Volume 9.2 fL (7.4-10.4); Platelet Count 154 K/uL (130-400); RDW Coefficient of Variation 15.7 % (11.5-14.5); RDW Standard Deviation 48.9 fL (36.4-46.3); Red Blood Count 3.74 M/uL (4.7-6.1); White Blood Count 4.63 K/uL (4.8-10.8)
[2020-07-19 07:36] LABS: Calcium 8.8 mg/dl (8.5-10.1); Creatinine Clr Calc Pharmacy 58.6 ml/min; Est GFR (Non-African American) 54.4; Potassium 3.8 mmol/L (3.5-5.1)
[2020-07-19] MEDS: FINASTERIDE 5 MG TAB PO SCH (08:36)
[2020-07-19] MEDS: GABAPENTIN 600 MG TAB PO SCH ×3 (08:37→20:55)
[2020-07-19] MEDS: CARBIDOPA/LEVODOPA 25/100MG TAB PO SCH ×3 (08:37→20:58)
[2020-07-19] MEDS: TOPIRAMATE 100 MG TAB PO SCH ×2 (08:37→20:55)
[2020-07-19] MEDS: predniSONE 10 MG TABLET PO SCH (08:37)
[2020-07-19] MEDS: levETIRAcetam 500 MG TAB PO SCH ×2 (08:38→20:56)
[2020-07-19] MEDS: INSULIN ASPART 100 UNITS/ML 3 ML PEN SC SCH ×4 (08:39→20:53)
[2020-07-19] MEDS: TERBINAFINE CR 30 GM TUBE EXT SCH ×2 (08:41→21:00)
[2020-07-19] MEDS: ENOXAPARIN 100 MG/1ML SYR SQ SCH (08:41)
[2020-07-19] MEDS: INSULIN GLARGINE SOLOSTAR 100 UNITS/ML 3 ML PEN SC SCH ×2 (08:42→20:53)
[2020-07-19] MEDS: POLYETHYLENE (MIRALAX) 17 GM PACK PO PRN ×2 (08:51→15:05)
[2020-07-19] MEDS: oxyCODONE/ACETAMINOPHEN 5mg/325mg TAB PO PRN ×3 (08:51→21:05)
[2020-07-19] MEDS ORDERED: SODIUM CHLORIDE 0.9% 250 ML IV PRN (14:13)
--- NOTE | 2020-07-19 14:17 | Anesthesiology Consultation ---
Date of Service July 19, 2020 Assessment & Plan Chart Review Chart Review: Acceptable Risk for Surgery and Patient NOT seen in Pre Admission Testing Consults Requested none ASA ASA4 Proposed Anesthesia Anesthesia Type: General Anesthesia Line Insertion: Arterial line History Surgery Operation Date: 07/20/20 12:45 Proposed Procedures p Decompression Fusion L3-S1 Spinal Cord Monitoring - Darius Agarwal DO Height/Weight Height: 5 ft 11 in Weight: 94.7 kg Allergies Allergy/AdvReac Type Severity Reaction Status Date / Time Iodinated Contrast Media Allergy Severe Anaphylaxis Verified 07/10/20 20:53 shellfish derived Allergy Severe Anaphylaxis Verified 07/10/20 20:53 Tetanus Vaccines and Toxoid Allergy Unknown Unknown Verified 07/10/20 20:53 Medications Home Medications Medication Instructions Recorded Confirmed Last Taken Trulicity 1.5 mg SUBCUT SA 01/20/20 07/10/20 05/22/20 albuterol sulfate [Ventolin HFA] 2 puff INHALATION Q4H PRN 01/20/20 07/10/20 Unknown allopurinol 200 mg PO 01/20/20 07/10/20 05/27/20 azithromycin 250 mg PO .[email or web address] 01/20/20 07/10/20 05/28/20 cholecalciferol (vitamin D3) 2,000 unit PO 01/20/20 07/10/20 05/27/20 [Vitamin D3] finasteride 5 mg PO [facility] 01/20/20 07/10/20 05/28/20 insulin aspart U-100 0 unit SUBCUT [facility] 01/20/20 07/10/20 05/28/20 12:00 10 units ipratropium-albuterol 3 ml INHALATION QID PRN 01/20/20 07/10/20 05/28/20 nitroglycerin 0.4 mg SUBLINGUAL DIRECTED PRN 01/20/20 07/10/20 Unknown [id number] 1 tab PO HS 02/05/20 07/10/20 05/27/20 gabapentin 600 mg tablet 600 mg PO BID tab 04/02/20 07/10/20 05/28/20 levetiracetam 1,000 mg tablet 1,000 mg PO BID 90 Days #180 tab 04/02/20 07/10/20 05/28/20 topiramate 100 mg tablet 100 mg PO BID 30 Days #60 tab 05/17/20 07/10/20 05/28/20 atorvastatin 40 mg PO HS 05/28/20 07/10/20 05/27/20 carbidopa 25 mg-levodopa 100 mg 0.5 tab PO TID #90 tab 07/02/20 07/10/20 Unknown tablet insulin glargine [Lantus Solostar 20 unit SUBCUT BID 07/10/20 07/10/20 Unknown U-100 Insulin] prednisone 10 mg PO DAILY 07/10/20 07/10/20 Unknown Active Medications Generic Name Dose Route Start Last Admin Trade Name Freq PRN Reason Stop Dose Admin Acetaminophen 650 mg 07/10/20 22:29 07/16/20 08:07 Acetaminophen 325 Mg Tab PO 08/09/20 22:28 650 mg Q4H PRN Administration pain/fever Allopurinol 200 mg 07/11/20 21:00 07/18/20 21:13 Allopurinol 100 Mg Tab PO 08/10/20 20:59 200 mg HS KIRSTEN Administration Atorvastatin Calcium 40 mg 07/11/20 21:00 07/18/20 21:11 Atorvastatin 40 Mg Tab PO 08/10/20 20:59 40 mg HS KIRSTEN Administration Carbidopa/Levodopa 0.5 tab 07/11/20 09:00 07/19/20 14:12 Carbidopa/Levodopa 25/100mg Tab PO 08/10/20 08:59 0.5 tab TID KIRSTEN Administration Enoxaparin Sodium 90 mg 07/16/20 13:00 07/19/20 08:41 Enoxaparin 100 Mg/1ml Syr SQ 08/15/20 12:59 90 mg Q12 KIRSTEN Administration Finasteride 5 mg 07/11/20 09:00 07/19/20 08:36 Finasteride 5 Mg Tab PO 08/10/20 08:59 5 mg QAM KIRSTEN Administration Gabapentin 600 mg 07/16/20 21:00 07/19/20 14:11 Gabapentin 600 Mg Tab PO 08/15/20 20:59 600 mg TID KIRSTEN Administration Insulin Aspart 0 units 07/10/20 22:45 07/19/20 12:39 Insulin Aspart 100 Units/Ml 3 Ml Pen SC 08/09/20 22:44 11 units ACHS KIRSTEN Administration Insulin Glargine 20 units 07/10/20 22:45 07/19/20 08:42 Insulin Glargine Solostar 100 Units/Ml 3 Ml Pen SC 08/09/20 22:44 20 units BID KIRSTEN Administration Levetiracetam 1,000 mg 07/11/20 09:00 07/19/20 08:38 Levetiracetam 500 Mg Tab PO 08/10/20 08:59 1,000 mg BID KIRSTEN Administration Magnesium Hydroxide 30 ml 07/10/20 22:29 07/17/20 23:10 Magnesium Hydroxide Susp 30 Ml Udc PO 08/09/20 22:28 30 ml Q6H PRN Administration Constipation Ondansetron HCl 4 mg 07/10/20 22:29 07/18/20 20:57 Ondansetron Inj 2 Mg/Ml 2 Ml Vial IV 08/09/20 22:28 4 mg Q6H PRN Administration Nausea Oxycodone/Acetaminophen 1 tab 07/16/20 15:40 07/19/20 08:51 Oxycodone/Acetaminophen 5mg/325mg Tab PO 07/30/20 15:39 1 tab Q6H PRN Administration Pain Polyethylene Glycol 34 gm 07/17/20 12:29 07/19/20 08:51 Polyethylene (Miralax) 17 Gm Pack PO 08/16/20 17:59 34 gm Q6 PRN Administration Constipation Prednisone 10 mg 07/11/20 09:00 07/19/20 08:37 Prednisone 10 Mg Tablet PO 08/10/20 08:59 10 mg DAILY KIRSTEN Administration Terbinafine HCl 1 appln 07/12/20 21:00 07/19/20 08:41 Terbinafine Cr 30 Gm Tube EXT 08/11/20 20:59 1 appln BID KIRSTEN Administration Topiramate 100 mg 07/11/20 09:00 07/19/20 08:37 Topiramate 100 Mg Tab PO 08/10/20 08:59 100 mg BID KIRSTEN Administration Triamcinolone Acetonide 1 appln 07/12/20 00:16 07/16/20 08:04 Triamcinolone Acet 0.1% Oint 80 Gm Tube EXT 08/11/20 00:15 1 appln Q12H PRN Administration pruritis Past Medical History Medical History CAD (coronary artery disease) Dehydration Diabetes HLD (hyperlipidemia) Interstitial lung disease Interstitial lung disease due to connective tissue disease Lung nodule Polymyositis Polymyositis Prostate cancer s/p XRT Rheumatoid arthritis Seizure-like activity Stroke-like symptom 12/2019, w/ blurry vision and dysarthria. mild R sided wkness. attending outpatient physical therapy w/ good improvement in strength (5+/5 strength of all 4 extremities as of 05/28/20) Thoracic ascending aortic aneurysm s/p repair Exercise / Class Metabolic Activity III < 4 Walking/Shop/Light housework Past Family History Family History Other Coronary heart disease Rheumatoid arthritis Stroke Past Surgical History Surgical History H/O hernia repair History of aortic valve replacement mechanical History of cholecystectomy History of fusion of cervical spine History of gastric bypass lap band History of heart artery stent History of lung biopsy 2019 History of partial nephrectomy Past Anesthesia History No Hx of Anesthesia Complications and No Family Hx of Anesthesia Complications History of PONV No Hx of PONV and No Hx of Motion Sickness Social History Smoking Status: Never smoker Hx Alcohol Use: No Hx Substance Use: No substance use type: does not use Physical Exam Vital Signs Last Vital Signs Temp 36.3 C L 07/19/20 08:07 Pulse 55 L 07/19/20 08:07 Resp 20 07/19/20 08:07 BP 114/67 07/19/20 08:07 Pulse Ox 95 07/19/20 08:07 Testing Laboratory Results 07/19/20 06:49 07/19/20 06:49 PT 11.3 Seconds (9.0-12.0) 07/18/20 06:22 INR 1.1 (0.9-1.1) 07/18/20 06:22 APTT 35.3 Seconds (21.0-31.0) H 07/10/20 19:26 Urine Color Yellow 07/11/20 05:51 Urine Appearance Clear (Clear) 07/11/20 05:51 Urine pH 6.0 (4.5-7.5) 07/11/20 05:51 Ur Specific [place] 1.023 (1.000-1.030) 07/11/20 05:51 Urine Protein Negative (Negative) 07/11/20 05:51 Urine Glucose (UA) Negative (Negative) 07/11/20 05:51 Urine Ketones Negative (Negative) 07/11/20 05:51 Urine Nitrite Negative (Negative) 07/11/20 05:51 Ur Leukocyte Esterase Negative (Negative) 07/11/20 05:51 07/10/20 19:24 Aerobic Blood Culture - Final Blood No growth in Aerobic bottle after 5 days. Anaerobic Blood Culture - Final No growth in Anaerobic bottle after 5 days. 07/10/20 19:26 Aerobic Blood Culture - Final Blood No growth in Aerobic bottle after 5 days. Anaerobic Blood Culture - Final No growth in Anaerobic bottle after 5 days. 07/19/20 07/19/20 11:25 07:20 POC Glucose 186 H 115 H Electrocardiogram Date: 07/10/20 Findings: + NSR @ (at 68 w/ occasionl PVC's and PAC's) Echocardiogram Date: 06/07/20 EF: 50% LV Function: normal (low normal) RWMA: + none Other Findings: no RVH (RV mildly dilated) Valvular Disease: + AI (mild), + MR (moderate) and + pertinent finding (mechanival AV , assumed to be functioning properly) TR-mild;RV [id number] Torr
--- NOTE | 2020-07-19 14:36 | XRay Report ---
XR chest 1V portable HISTORY: 75 years-old Male chf acute shortness of breath with congestive heart failure COMPARISON: Chest radiograph 07/10/2020 TECHNIQUE: Portable AP view of the chest FINDINGS: Cardiac silhouette is enlarged. Prior median sternotomy. Postoperative changes of the left lung base. Pulmonary vascular congestion. No pneumothorax, large pleural effusion or lobar airspace consolidati on. Mild bibasilar densities suggest atelectasis/scarring. Degenerative changes of the shoulders and spine. IMPRESSION: Cardiomegaly with pulmonary vascular congestion. ACT 112: Negative or not required by law. The above report was generated using voice recognition software. It may contain grammatical, syntax o r spelling errors. Electronically signed by: Terry Orozco M.D. 07/19/2020 2:34 PM
--- NOTE | 2020-07-19 19:02 | Hospitalist Progress Note ---
Date of Service July 19, 2020 Assessment & Plan (1) Neurogenic claudication due to lumbar spinal stenosis: severe disease at the L5 level, left leg radiculopathy good response to Percocet PRN increased gabapentin to 600mg TID for better control of neuropathic pain, working well, no increased lethargy plan for OR next week, Dr. Agarwal following, he will determine timing on Lovenox now for full anticoagulation that can be held prior to surgery 07-19 OR tomorrow holding lovenox, bridge with heparin stop heparin 4 hours before surgery (2) Nerve root compression: see above pain control with Percocet, gabapentin 600mg TID (3) Weakness: Increasing weakness and falls possibly due to a combination of lumbar spinal stenosis and Parkinson's Disease Weakness: -Patient with recent and frequent history of falls with recent hospitalization in May; during this admission initial recommendation was for SNF at [facility], however patient declined in favor of returning home MRI from 05/30/2020 it is as follows IMPRESSION: 1. No significant change in appearance of the lumbar spine since MRI of January 21, 2020. Status post L2-L4 laminectomy. No central canal stenosis. 2. Moderate to severe multilevel neural foraminal stenosis, most pronounced at the left L3-L4 and bilateral L5-S1 neural foramen -PT/OT evaluations ordered anticipate him needing rehab, he is currently living alone, cannot live with family due to ongoing issues, has demonstrated that he falls a lot at home, concerned about safety -consult Dr. Agarwal, he can offer surgery but patient is very complicated medically, high risk of complications d/w the patient, he wants to proceed with surgery, he understands the risks, states that he has no quality of life with the pain and instability would rather take risk of surgery than live like this spoke with Dr. Agarwal, plan for surgery next week holding Coumadin in anticipation, INR is 1.1 today, continue Lovenox for full anticoagulation (4) Chronic kidney disease, stage 3a: Cr is stable at this time, making urine electrolytes stable (5) PAF (paroxysmal atrial fibrillation): Paroxysmal atrial fibrillation: -History of paroxysmal atrial fibrillation -EKG in ED demonstrating concerns for return of atrial fibrillation without RVR -not on any rate controlling medication Continue home warfarin dosing-> INR is 1.2, continue Lovenox 3- holding anticoag for surgery (6) History of aortic valve replacement: mchanical valve remains on coumadin hold Coumadin Lovenox 3-22 holding lovenox, bridge with heparin (7) HLD (hyperlipidemia): (8) Diabetes: Diabetes: -Known diabetic, last A1c 7.3 on 05/29/2020 -Home regimen including Trulicity, glargine, aspart -Temporarily will hold Trulicity -BSG's ACHS, with SSI and glargine, monitor for hypo and hyperglycemic episodes (9) Parkinsonism: Parkinsonism: -Follows with neurology (Dr. 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 Buckley in early June, plan to start Rituxan soon as outpatient, he has had his 2nd COVID vaccine shot on hold for now while we work on correcting his lumbar spine issues (12) Severe protein-calorie malnutrition: encourage PO intake, supplements (13) Constipated: will order the Miralax 34gm q6 PRN (he takes this dose at home) still not effective, will give Dulcolax suppository today (14) Tinea cruris: Terbinafine cream BID likely due to ongoing Prednisone use rash is better, would continue for two weeks likely to recur as long as he is on Prednisone Admission and Anticipated Discharge Date Admission Date: July 10, 2020 Subjective low back pain and left leg pain down to foot, severe, alleviated by percocet states right leg edema exacerbated by prednisone small BM today asking for bowel regimen Review of Systems Constitutional: no fever, no chills, no fatigue, no weakness, no anorexia, no weight loss and no weight gain Ear, Nose, Mouth, Throat: no nasal congestion, no sore throat and no dysphagia Respiratory: no cough and no dyspnea Cardiovascular: no chest pain, no dyspnea on exertion, no orthopnea and no palpitations Gastrointestinal: no abdominal pain, no nausea, no vomiting, no hematemesis, no dysphagia, no constipation, no diarrhea/loose stools, no blood in stools and no melena Genitourinary: no dysuria and no hematuria Musculoskeletal: no back pain, no joint pain, no myalgia and no muscle weakness Integumentary: no rash, no lesions, no skin ulcer, no erythema, no dry skin and no pruritus Neurologic: no falls, no localized weakness, no generalized weakness, no numbness, no paresthesia, no tremor(s) and no headache(s) Psychiatric: no depression, no suicidal ideation, no homicidal ideation and no anxiety Endocrine: no cold intolerance and no heat intolerance Hematologic / Lymphatic: no easy bleeding and no easy bruising Physical Exam Constitutional: well developed and well nourished; no acute distress Eyes: PERRL, conjunctivae normal, anicteric sclerae ENMT: Mouth: oral mucous membranes not dry Respiratory: normal respiratory effort; no respiratory distress and no labored breathing Auscultation: lungs clear to auscultation bilaterally; no crackles, no rales, no rhonchi and no wheezes Cardiovascular: Rate/Rhythm: regular rate and regular rhythm Heart Sounds: no murmur and no cardiac rub Vessels: normal peripheral pulses and radial pulses present; no JVD Extremities: + edema (right leg 1+ pitting edema) Gastrointestinal (Abdomen): Inspection/Auscultation: abdomen normal to inspection and normal bowel sounds; abdomen not distended Percussion/Palpation: abdomen soft; abdomen nontender, no guarding, abdomen not rigid and no hepatosplenomegaly Musculoskeletal: Head/Neck/Chest: normocephalic and head atraumatic Spine: no cervical spinal tenderness, no cervical muscular tenderness, no thoracic spinal tenderness and no lumbar spinal tenderness Skin: no rashes, warm and dry Neurologic: CN's II-XI intact bilaterally and moves all extremities Motor/Sensory: no tremor and no sensory deficit Psychiatric: Orientation: alert, oriented to person, oriented to place and oriented to time Apperance: appropriately groomed; not disheveled Affect: euthymic affect; no anxious affect and no tearful affect Genitourinary: no Wetzel catheter Results & Data Results & Data ([facility]) Vital Signs (Past 12 Hours) Vital Signs Temp Pulse Resp BP Pulse Ox 07/19/20 15:09 36.8 C 71 20 105/65 96 07/19/20 08:07 36.3 C L 55 L 20 114/67 95 PG Care Time/CCT Total # of Minutes Spent Total Time Spent with Patient: Total time spent is greater than 50% in coordination of care (as documented) at patient's floor/unit and/or counseling patient: Coding Level of Care Code 93216 Subseq Hosp Care Lvl 2 Diagnoses Neurogenic claudication due to lumbar spinal stenosis M48.062 Nerve root compression G54.9 Weakness R53.1 Chronic kidney disease, stage 3a N18.3 PAF (paroxysmal atrial fibrillation) I48.0 History of aortic valve replacement Z95.2 HLD (hyperlipidemia) E78.2 Hyperlipidemia type: mixed hyperlipidemia Diabetes E11.42; Z79.4 Diabetes mellitus type: type 2 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: with automobile 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 use Diabetes mellitus complication status: with neurologic complications Diabetes mellitus complication detail: with polyneuropathy Parkinsonism G20 Fall [id number].XXXA Interstitial lung disease J84.9 Severe protein-calorie malnutrition E43 Constipated K59.00 Constipation type: unspecified constipation type Tinea cruris B35.6 (1) HLD (hyperlipidemia) Hyperlipidemia type: mixed hyperlipidemia Qualified Code(s): E78.2 - Mixed hyperlipidemia (2) Diabetes Diabetes mellitus type: type 2 Diabetes mellitus halfway insulin use: with automobile 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 use Diabetes mellitus complication status: with neurologic complications Diabetes mellitus complication detail: with polyneuropathy Qualified Code(s): E11.42 - Type 2 diabetes mellitus with diabetic polyneuropathy; Z79.4 - skilled nursing (current) use of insulin (3) Constipated Constipation type: unspecified constipation type Qualified Code(s): K59.00 - Constipation, unspecified
[2020-07-19] MEDS ORDERED: Heparin IV Adult Wt-Based Standard WITH Bolus Protocol IV SCH (20:30)
[2020-07-19] MEDS ORDERED: HEPARIN IV BOLUS 7,000 UNITS in SYRINGE 0 ML IV STA (20:44)
[2020-07-19] MEDS ORDERED: HEPARIN SODIUM/DEXTROSE 25,000 UNITS/500 ML BAG IV SCH (20:50)
[2020-07-19] MEDS: allopurinoL 100 MG TAB PO SCH (20:55)
[2020-07-19] MEDS: ATORVASTATIN 40 MG TAB PO SCH (20:56)
[2020-07-19] MEDS: DOCUSATE SODIUM/SENNA 50/8.6MG TAB PO SCH (20:57)
[2020-07-19] MEDS ORDERED: HEPARIN IV BOLUS 7,000 UNITS in SYRINGE 0 ML IV ONE (22:00)
[2020-07-20 04:03] LABS: Hematocrit (blood only) 31.5 % (42-52); Hemoglobin 10.3 g/dL (14.0-18.0); Mean Corpuscular Hemoglobin 27.6 pg (25-34); Mean Corpuscular Hgb Conc 32.7 g/dL (32-36); Mean Corpuscular Volume 84.5 fL (80-100); Mean Platelet Volume 9.8 fL (7.4-10.4); Platelet Count 161 K/uL (130-400); RDW Coefficient of Variation 15.6 % (11.5-14.5); RDW Standard Deviation 48.7 fL (36.4-46.3); Red Blood Count 3.73 M/uL (4.7-6.1)
[2020-07-20 04:22] LABS: Partial Thromboplastin Ratio 4.9
[2020-07-20 04:26] LABS: BUN Creatinine Ratio 17.7 (10-20); Calcium 8.1 mg/dl (8.5-10.1); Creatinine Clr Calc Pharmacy 57.2 ml/min; Est GFR (African American) 61.3; Est GFR (Non-African American) 52.9; Magnesium 2.1 mg/dl (1.8-2.4); Phosphorus 3.7 mg/dl (2.5-4.9); Potassium 3.8 mmol/L (3.5-5.1)
[2020-07-20 04:27] LABS: Partial Thromboplastin Time 129.5 Seconds (21.0-31.0)
[2020-07-20] MEDS: INSULIN ASPART 100 UNITS/ML 3 ML PEN SC SCH ×3 (07:36→19:01)
[2020-07-20] MEDS: CARBIDOPA/LEVODOPA 25/100MG TAB PO SCH ×3 (08:05→21:40)
[2020-07-20] MEDS: DOCUSATE SODIUM/SENNA 50/8.6MG TAB PO SCH (08:05)
[2020-07-20] MEDS: levETIRAcetam 500 MG TAB PO SCH ×2 (08:06→21:41)
[2020-07-20] MEDS: GABAPENTIN 600 MG TAB PO SCH ×3 (08:06→21:40)
[2020-07-20] MEDS: TOPIRAMATE 100 MG TAB PO SCH ×2 (08:06→21:41)
[2020-07-20] MEDS: predniSONE 10 MG TABLET PO SCH (08:06)
[2020-07-20] MEDS: TERBINAFINE CR 30 GM TUBE EXT SCH ×2 (08:06→21:54)
[2020-07-20] MEDS: FINASTERIDE 5 MG TAB PO SCH (08:06)
[2020-07-20] MEDS: INSULIN GLARGINE SOLOSTAR 100 UNITS/ML 3 ML PEN SC SCH ×2 (08:39→22:59)
[2020-07-20] MEDS ORDERED: fentaNYL citrate 100 MCG/2 ML VIAL ONE ×3 (12:30→15:20)
--- NOTE | 2020-07-20 12:38 | History & Physical Bridge Note ---
Date of Service July 20, 2020 History & Physical Bridge Note I have examined the patient, reviewed the History & Physical and in the interval since the performance of the History & Physical I have noted the following changes of clinical significance: no changes noted Revision decompression fusion L3-S1
[2020-07-20] MEDS ORDERED: ceFAZolin 2000MG 2,000 MG/15 ML SYR IV ONE (12:50)
[2020-07-20] MEDS ORDERED: ceFAZolin 2,000 MG/15 ML IV PUSH IV ONE (12:53)
[2020-07-20] MEDS ORDERED: BACITRACIN INJ 50,000 UNIT VIAL ONE (13:02)
[2020-07-20] MEDS ORDERED: BUPIVACAINE/EPINEPHRINE 0.5% MPF 1:200,000 30 ML VIAL ONE (13:02)
[2020-07-20] MEDS ORDERED: ALBUMIN HUMAN 5% 12.5 GM/250 ML VIAL IV ONE (13:13)
[2020-07-20] MEDS ORDERED: LIDOCAINE HCL 2% 2 ML VIAL/AMP(20MG/ML) INFIL ONE (14:56)
[2020-07-20] MEDS ORDERED: ROCURONIUM BROMIDE 10 MG/ML 5 ML VIAL IV ONE (14:56)
[2020-07-20] MEDS ORDERED: PROPOFOL IV EMULSION 10 MG/ML 20 ML VIAL IV ONE (14:56)
[2020-07-20] MEDS ORDERED: ONDANSETRON INJ 2 MG/ML 2 ML VIAL ONE ×2 (14:57→15:39)
[2020-07-20] MEDS ORDERED: PHENYLEPHRINE HCL 10 MG/ML VIAL ONE (14:57)
[2020-07-20] MEDS ORDERED: FLOSEAL HEMOSTATIC MATRIX 10ML TOP ONE (15:23)
[2020-07-20] MEDS ORDERED: LABETALOL HCL IV 5 MG/ML 20ML IV PRN (15:38)
[2020-07-20] MEDS ORDERED: PROMETHAZINE HCL 12.5 MG in SODIUM CHLORIDE 0.9% 50 ML IV PRN ×2 (15:38→17:42)
[2020-07-20] MEDS ORDERED: ATROPINE SULFATE 0.1 MG/ML 10ML SYR IV PRN (15:38)
[2020-07-20] MEDS ORDERED: NALOXONE HCL 0.4 MG/1 ML VIAL/CARP IV PRN ×2 (15:38→17:42)
[2020-07-20] MEDS ORDERED: ePHEDrine sulfate 50 MG/ML AMP IV PRN (15:38)
[2020-07-20] MEDS ORDERED: ONDANSETRON INJ 2 MG/ML 2 ML VIAL IV PRN ×2 (15:38→17:42)
[2020-07-20] MEDS ORDERED: FLUMAZENIL 0.1 MG/1 ML 10 ML VIAL IV PRN (15:38)
--- NOTE | 2020-07-20 15:38 | Operative Report ---
Post Operative Report Pre & Post Diagnosis Operation Date: 07/20/20 12:45 Pre-Op Diagnosis: Neurogenic Claudication due to Lumbar Spinal Stenosis Post-Op Diagnosis: Neurogenic Claudication due to Lumbar Spinal Stenosis I identified the patient and participated in the time-out.: Yes Procedure Operation Date: 07/20/20 12:45 Actual Procedures #1 revision decompression bilateral medial facetectomies foraminotomies L3-4, L4-5 and L5-S1. #2 posterior spinal fusion L3-4 L4-5 L5-S1. #3 patient posterior segmental instrumentation L3-S1. #4 interbody fusion L5-S1 peer #5 placement peek cage 11 x 26 mm at L5-S1. #6 placement locally harvested morselized autograft in the posterior gutters. #7 placement infuse collagen sponge, master graft in the posterior lateral gutters and I factor in the interbody space. Surgeon Darius Agarwal, Transport Tank Technician Edith Shaikh Estimated Blood Loss 850 Findings See Below Patient last over 850 cc of blood throughout our procedure. This did add significant technical difficulty and at least 25% increase to the operative time. Specimens None Indications This is a for 75-year-old male who presents with marked decline in status inability to ambulate secondary to severe back and leg pain. After failing course of nonoperative care is here for the above-mentioned procedure. Description of Procedure Patient was met with identified informed consent obtained. Patient was then taken to the operative suite underwent a patient placed in a prone position Gunner table total spine frame. All bony prominences well-padded eyes inspected to ensure no external pressure placed upon them. This point the lumbar spine was prepped and draped in a sterile fashion. Sharp dissection with the assistance of Bovie cautery was performed down to and exposing the remaining lamina and transverse processes of L3-L4-L5 and sacral ala bilaterally. From caudal cephalad fashion revision complete laminectomy of L5 L4 and L3 was performed including bilateral medial facetectomies. Pedicle screws then placed in L3-L4-L5 and S1 levels bilaterally with assistance of fluoroscopy and the proper sized german placed. By way of transforaminal approach and left complete discectomy of L5-S1 was performed endplates curetted to subcortical being bone and a 11 x 26 mm peek cage filled with I factor tapped in position. The rods were then locked in final position bilaterally. The transverse processes of L3 L4-5 and sacral ala burred to subcortical bleeding bone. Infuse collagen sponge master graft local autograft was placed in the posterior gutters. 15 round YENNI drain inserted. Incision was then closed with 1 Vicryl to fascia 2-0 Vicryl subcutaneously and 4 Monocryl for final skin closure. Steri-Strip sterile dressings placed. Patient waken taken to PACU stable condition. Please note spinal cord monitoring was utilized at the procedure no changes noted. Lastly Edith Shaikh was present at the entire procedure involved the patient positioning complex portions of the surgery and final skin closure. I attest to the content of the Intraoperative Record and any orders documented therein. Any exceptions are noted below.
[2020-07-20] MEDS ORDERED: FUROSEMIDE 10 MG/ML 10 ML VIAL IV ONE (15:39)
--- NOTE | 2020-07-20 15:43 | Fluoroscopy Report ---
FL lumbar spine 2-3V CLINICAL HISTORY: L3-S1 DECOMPRESSION AND FUSION COMPARISON STUDY: Lumbar spine MRI May 30, 2020. Lumbar spine CT May 28, 2020. Lumbar spine radiographs May 31, 2020. FLUOROSCOPY TIME: 36 seconds. FLUOROSCOPIC IMAGES: 3 FINDINGS: Fluoroscopy was provided during L5-S1 discectomy with interbody spacer placement. There is a posterior decompression. Note is made of bilateral pedicle screws at the L3, L4, L5 and S1 levels w ith interconnecting rods. Hardware is intact. There are no unexpected radiopaque foreign bodies. IMPRESSION: Fluoroscopy provided during L5-S1 discectomy and posterior decompression with bilateral pedicle screw fusion from L3 through S1. ACT 112: Negative or not required by law. Electronically signed by: John Paul Drummond M.D. 07/20/2020 3:41 PM
[2020-07-20] MEDS: fentaNYL citrate 100 MCG/2 ML VIAL IV PRN ×3 (16:03→16:18)
[2020-07-20 16:32] LABS: Hematocrit (blood only) 28.3 % (42-52); Hemoglobin 9.1 g/dL (14.0-18.0)
[2020-07-20] MEDS: HYDROmorphone INJ 1 MG/ML SYRINGE IV PRN ×2 (16:40→16:45)
--- NOTE | 2020-07-20 17:10 | Anesthesiology Progress Note ---
Date of Service July 20, 2020 Anesthesia Post Procedure Vital Signs Vital Signs: Temp Pulse Resp BP Pulse Ox 07/20/20 16:55 51 L 16 106/48 L 99 07/20/20 16:45 54 L 18 90/51 L 97 07/20/20 16:35 36.6 C 51 L 18 123/58 L 97 07/20/20 16:25 36.6 C 51 L 18 92/66 L 96 07/20/20 16:15 50 L 18 115/59 L 100 07/20/20 16:05 53 L 18 106/61 100 07/20/20 15:55 37.1 C 64 18 115/65 95 07/20/20 11:35 36.4 C L 58 L 20 121/63 96 07/20/20 07:30 36.4 C L 61 20 103/62 98 07/19/20 23:05 36.9 C 71 18 103/56 L 95 Pain Intensity Back: Pain Intensity: 4 Transfer of Care Handoff Completed per policy Notes Mental Status: alert / awake / arousable Patient Amnestic to Procedure: Yes Nausea / Vomiting: adequately controlled Pain: adequately controlled Airway Patency, RR, SpO2: stable & adequate BP & HR: stable & adequate Hydration State: stable & adequate Anesthetic Complications: no major complications apparent
[2020-07-20] MEDS ORDERED: METOCLOPRAMIDE HCL INJ 5 MG/ML 2 ML VIAL IV PRN (17:42)
[2020-07-20] MEDS ORDERED: bisacodyL 10 MG SUPP PR PRN (17:42)
[2020-07-20] MEDS ORDERED: HYDROmorphone INJ 0.5 MG/0.5 ML SYR IV PRN (17:42)
[2020-07-20] MEDS ORDERED: diphenhydrAMINE Capsule 25 MG CAP PO PRN (17:42)
[2020-07-20] MEDS ORDERED: HYDROmorphone INJ 1 MG/ML SYRINGE IV PRN (17:42)
[2020-07-20] MEDS ORDERED: SOD PHOSPHATE/SOD BIPHOSPHATE ENEMA 132 ML BTL PR PRN (17:42)
[2020-07-20] MEDS ORDERED: FAMOTIDINE 20 MG TAB PO PRN (17:42)
[2020-07-20] MEDS ORDERED: DO NOT ADMINISTER PNEUMOCOCCAL VACCINE PRN (17:42)
[2020-07-20] MEDS ORDERED: LORazepam 0.5 MG TAB PO PRN (17:42)
[2020-07-20] MEDS ORDERED: hydrOXYzine HCl 25 MG TAB PO PRN (17:42)
[2020-07-20] MEDS ORDERED: DO NOT ADMINISTER FLU VACCINE PRN (17:42)
[2020-07-20] MEDS ORDERED: LORazepam 0.5 MG/1 ML VIAL IV PRN (17:42)
[2020-07-20] MEDS ORDERED: ALUMINUM/MAGNESIUM SUSP 30 ML UDC PO PRN (17:42)
[2020-07-20] MEDS ORDERED: ONDANSETRON 4 MG OD TAB PO PRN (17:42)
[2020-07-20] MEDS ORDERED: traMADol HCL 50 MG TABLET PO PRN (17:42)
[2020-07-20] MEDS ORDERED: ACETAMINOPHEN 1,000 MG/100 ML VIAL IV PRN (17:42)
[2020-07-20] MEDS ORDERED: MAGNESIUM HYDROXIDE SUSP 30 ML UDC PO PRN (17:42)
--- NOTE | 2020-07-20 17:51 | Hospitalist Progress Note ---
Date of Service July 20, 2020 Assessment & Plan (1) Neurogenic claudication due to lumbar spinal stenosis: severe disease at the L5 level, left leg radiculopathy good response to Percocet PRN increased gabapentin to 600mg TID for better control of neuropathic pain, working well, no increased lethargy plan for OR next week, Dr. Agarwal following, he will determine timing on Lovenox now for full anticoagulation that can be held prior to surgery 07-19 OR tomorrow holding lovenox, bridge with heparin stop heparin 4 hours before surgery 07-20 lost 850ml blood during OR continue to hold anticoag (2) Nerve root compression: see above pain control with Percocet, gabapentin 600mg TID (3) Anemia: 07-20 chronic and blood loss 850ml in OR monitor CBC closely (4) Weakness: Increasing weakness and falls possibly due to a combination of lumbar spinal stenosis and Parkinson's Disease Weakness: -Patient with recent and frequent history of falls with recent hospitalization in May; during this admission initial recommendation was for SNF at [facility], however patient declined in favor of returning home MRI from 05/30/2020 it is as follows IMPRESSION: 1. No significant change in appearance of the lumbar spine since MRI of January 21, 2020. Status post L2-L4 laminectomy. No central canal stenosis. 2. Moderate to severe multilevel neural foraminal stenosis, most pronounced at the left L3-L4 and bilateral L5-S1 neural foramen -PT/OT evaluations ordered anticipate him needing rehab, he is currently living alone, cannot live with family due to ongoing issues, has demonstrated that he falls a lot at home, concerned about safety -consult Dr. Agarwal, he can offer surgery but patient is very complicated medic ally, high risk of complications d/w the patient, he wants to proceed with surgery, he understands the risks, states that he has no quality of life with the pain and instability would rather take risk of surgery than live like this spoke with Dr. Agarwal, plan for surgery next week holding Coumadin in anticipation, INR is 1.1 today, continue Lovenox for full anticoagulation (5) Chronic kidney disease, stage 3a: Cr is stable at this time, making urine electrolytes stable (6) PAF (paroxysmal atrial fibrillation): Paroxysmal atrial fibrillation: -History of paroxysmal atrial fibrillation -EKG in ED demonstrating concerns for return of atrial fibrillation without RVR -not on any rate controlling medication Continue home warfarin dosing-> INR is 1.2, continue Lovenox 3-22 holding anticoag for surgery (7) History of aortic valve replacement: mchanical valve remains on coumadin hold Coumadin Lovenox 3-22 holding lovenox, bridge with heparin (8) HLD (hyperlipidemia): (9) Diabetes: Diabetes: -Known diabetic, last A1c 7.3 on 05/29/2020 -Home regimen including Trulicity, glargine, aspart -Temporarily will hold Trulicity -BSG's ACHS, with SSI and glargine, monitor for hypo and hyperglycemic episodes (10) Parkinsonism: Parkinsonism: -Follows with neurology (Dr. 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 Buckley in early June, plan to start Rituxan soon as outpatient, he has had his 2nd COVID vaccine shot on hold for now while we work on correcting his lumbar spine issues (13) Severe protein-calorie malnutrition: encourage PO intake, supplements (14) Constipated: will order the Miralax 34gm q6 PRN (he takes this dose at home) still not effective, will give Dulcolax suppository today (15) Tinea cruris: Terbinafine cream BID likely due to ongoing Prednisone use rash is better, would continue for two weeks likely to recur as long as he is on Prednisone Admission and Anticipated Discharge Date Admission Date: July 10, 2020 Subjective Patient reports 3 watery stools today after receiving bowel regimen last couple days for constipation No abdominal pain, no nausea, no vomiting Endorsing right leg edema Still has back pain radiating to left leg No other issues Review of Systems Constitutional: no fever, no chills, no fatigue, no weakness, no anorexia, no weight loss and no weight gain Ear, Nose, Mouth, Throat: no nasal congestion, no sore throat and no dysphagia Respiratory: no cough and no dyspnea Cardiovascular: no chest pain, no dyspnea on exertion, no orthopnea and no palpitations Gastrointestinal: + diarrhea/loose stools; no abdominal pain, no nausea, no vomiting, no hematemesis, no dysphagia, no constipation, no blood in stools and no melena Genitourinary: no dysuria and no hematuria Musculoskeletal: + back pain and + radicular pain; no joint pain, no myalgia and no muscle weakness Integumentary: no rash, no lesions, no skin ulcer, no erythema, no dry skin and no pruritus Neurologic: no falls, no localized weakness, no generalized weakness, no numbness, no paresthesia, no tremor(s) and no headache(s) Psychiatric: no depression, no suicidal ideation, no homicidal ideation and no anxiety Endocrine: no cold intolerance and no heat intolerance Hematologic / Lymphatic: no easy bleeding and no easy bruising Physical Exam Constitutional: well developed and well nourished; no acute distress Eyes: PERRL, conjunctivae normal, anicteric sclerae ENMT: Mouth: oral mucous membranes not dry Respiratory: normal respiratory effort; no respiratory distress and no labored breathing Auscultation: lungs clear to auscultation bilaterally; no crackles, no rales, no rhonchi and no wheezes Cardiovascular: Rate/Rhythm: regular rate and regular rhythm Heart Sounds: no murmur and no cardiac rub Vessels: normal peripheral pulses and radial pulses present; no JVD Extremities: + edema (right leg 1+ pitting edema) Gastrointestinal (Abdomen): Inspection/Auscultation: abdomen normal to inspection and normal bowel sounds; abdomen not distended Percussion/Palpation: abdomen soft; abdomen nontender, no guarding, abdomen not rigid and no hepatosplenomegaly Musculoskeletal: Head/Neck/Chest: normocephalic and head atraumatic Spine: no cervical spinal tenderness, no cervical muscular tenderness, no thoracic spinal tenderness and no lumbar spinal tenderness Skin: no rashes, warm and dry Neurologic: CN's II-XI intact bilaterally and moves all extremities Motor/Sensory: no tremor and no sensory deficit Psychiatric: Orientation: alert, oriented to person, oriented to place and oriented to time Apperance: appropriately groomed; not disheveled Affect: euthymic affect; no anxious affect and no tearful affect Results & Data Results & Data ([facility]) Vital Signs (Past 12 Hours) Vital Signs Temp Pulse Resp BP Pulse Ox 07/20/20 17:41 36.4 C L 48 L 18 105/48 L 95 07/20/20 17:05 36.6 C 54 L 16 106/54 L 99 07/20/20 16:55 51 L 16 106/48 L 99 07/20/20 16:45 54 L 18 90/51 L 97 07/20/20 16:35 36.6 C 51 L 18 123/58 L 97 07/20/20 16:25 36.6 C 51 L 18 92/66 L 96 07/20/20 16:15 50 L 18 115/59 L 100 07/20/20 16:05 53 L 18 106/61 100 07/20/20 15:55 37.1 C 64 18 115/65 95 07/20/20 11:35 36.4 C L 58 L 20 121/63 96 07/20/20 07:30 36.4 C L 61 20 103/62 98 PG Care Time/CCT Total # of Minutes Spent Total Time Spent with Patient: Total time spent is greater than 50% in coordination of care (as documented) at patient's floor/unit and/or counseling patient: Coding Level of Care Code 57754 Subseq Hosp Care Lvl 2 Diagnoses Neurogenic claudication due to lumbar spinal stenosis M48.062 Nerve root compression G54.9 Anemia D64.9 Anemia type: unspecified type Weakness R53.1 Chronic kidney disease, stage 3a N18.3 PAF (paroxysmal atrial fibrillation) I48.0 History of aortic valve replacement Z95.2 HLD (hyperlipidemia) E78.2 Hyperlipidemia type: mixed hyperlipidemia Diabetes E11.42; Z79.4 Diabetes mellitus type: type 2 Diabetes mellitus middle or 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 principal insulin use: with fpc use Diabetes mellitus complication status: with neurologic complications Diabetes mellitus complication detail: with polyneuropathy Parkinsonism G20 Fall [id number] Interstitial lung disease J84.9 Severe protein-calorie malnutrition E43 Constipated K59.00 Constipation type: unspecified constipation type Tinea cruris B35.6 (1) HLD (hyperlipidemia) Hyperlipidemia type: mixed hyperlipidemia Qualified Code(s): E78.2 - Mixed hyperlipidemia (2) Diabetes Diabetes mellitus type: type 2 Diabetes mellitus fpc insulin use: with fpc use Diabetes mellitus complication status: with neurologic complications Diabetes mellitus complication detail: with polyneuropathy Qualified Code(s): E11.42 - Type 2 diabetes mellitus with diabetic polyneuropathy; Z79.4 - 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
[2020-07-20] MEDS: ONDANSETRON INJ 2 MG/ML 2 ML VIAL IV PRN (18:22)
[2020-07-20] MEDS: oxyCODONE/ACETAMINOPHEN 5mg/325mg TAB PO PRN (18:22)
[2020-07-20] MEDS: SODIUM CHLORIDE 0.9% 1000ML 1,000 ML IV SCH (18:42)
[2020-07-20 19:27] LABS: Hematocrit (blood only) 27.9 % (42-52); Hemoglobin 9.2 g/dL (14.0-18.0); Mean Corpuscular Volume 84.8 fL (80-100); Mean Platelet Volume 9.8 fL (7.4-10.4); Platelet Count 140 K/uL (130-400); RDW Coefficient of Variation 15.6 % (11.5-14.5); RDW Standard Deviation 48.9 fL (36.4-46.3); Red Blood Count 3.29 M/uL (4.7-6.1); White Blood Count 8.05 K/uL (4.8-10.8)
[2020-07-20] MEDS ORDERED: DOCUSATE SODIUM/SENNA 50/8.6MG TAB PO SCH (21:00)
[2020-07-20] MEDS: ceFAZolin 2000MG 2,000 MG/15 ML SYR IV SCH (21:39)
[2020-07-20] MEDS: ATORVASTATIN 40 MG TAB PO SCH (21:40)
[2020-07-20] MEDS: allopurinoL 100 MG TAB PO SCH (21:40)
[2020-07-21] MEDS: oxyCODONE/ACETAMINOPHEN 5mg/325mg TAB PO PRN ×2 (00:22→08:16)
[2020-07-21] MEDS: ONDANSETRON INJ 2 MG/ML 2 ML VIAL IV PRN ×2 (00:25→08:16)
[2020-07-21] MEDS: INSULIN ASPART 100 UNITS/ML 3 ML PEN SC SCH ×5 (00:41→22:36)
[2020-07-21] MEDS: SODIUM CHLORIDE 0.9% 1000ML 1,000 ML IV SCH (04:22)
[2020-07-21] MEDS: ceFAZolin 2000MG 2,000 MG/15 ML SYR IV SCH (04:52)
[2020-07-21] MEDS ORDERED: POLYETHYLENE (MIRALAX) 17 GM PACK PO SCH (06:00)
[2020-07-21 07:25] LABS: Basophils # (auto) 0.01 K/uL (0-0.2); Basophils % (auto) 0.2 %; Eosinophils # (auto) 0.07 K/uL (0-0.5); Eosinophils % (auto) 1.2 %; Hematocrit (blood only) 26.9 % (42-52); Hemoglobin 8.7 g/dL (14.0-18.0); Immature Granulocytes # (auto) 0.04 K/uL (0.00-0.02); Immature Granulocytes % (auto) 0.7 %; Lymphocytes # (auto) 0.76 K/uL (1.2-3.4); Lymphocytes % (auto) 13.2 %; Mean Corpuscular Hemoglobin 27.5 pg (25-34); Mean Corpuscular Hgb Conc 32.3 g/dL (32-36); Mean Corpuscular Volume 85.1 fL (80-100); Mean Platelet Volume 10.1 fL (7.4-10.4); Monocytes # (auto) 0.49 K/uL (0.11-0.59); Monocytes % (auto) 8.5 %; Neutrophils # (auto) 4.37 K/uL (1.4-6.5); Neutrophils % (auto) 76.2 %; Platelet Count 148 K/uL (130-400); RDW Coefficient of Variation 15.9 % (11.5-14.5); RDW Standard Deviation 49.6 fL (36.4-46.3); Red Blood Count 3.16 M/uL (4.7-6.1); White Blood Count 5.74 K/uL (4.8-10.8)
[2020-07-21 07:52] LABS: Calcium 8.1 mg/dl (8.5-10.1); Creatinine Clr Calc Pharmacy 58.6 ml/min; Est GFR (Non-African American) 54.4; Magnesium 1.9 mg/dl (1.8-2.4); Phosphorus 3.3 mg/dl (2.5-4.9); Potassium 3.7 mmol/L (3.5-5.1)
[2020-07-21] MEDS: CARBIDOPA/LEVODOPA 25/100MG TAB PO SCH ×3 (08:04→22:24)
[2020-07-21] MEDS: FINASTERIDE 5 MG TAB PO SCH (08:04)
[2020-07-21] MEDS: predniSONE 10 MG TABLET PO SCH (08:04)
[2020-07-21] MEDS: GABAPENTIN 600 MG TAB PO SCH ×3 (08:05→22:24)
[2020-07-21] MEDS ORDERED: SODIUM CHLORIDE 0.9% 250 ML IV PRN (08:05)
[2020-07-21] MEDS: TOPIRAMATE 100 MG TAB PO SCH ×2 (08:05→22:24)
[2020-07-21] MEDS: levETIRAcetam 500 MG TAB PO SCH ×2 (08:07→22:24)
[2020-07-21] MEDS: TERBINAFINE CR 30 GM TUBE EXT SCH ×2 (08:07→22:38)
--- NOTE | 2020-07-21 08:13 | Ultrasound Report ---
RIGHT LOWER EXTREMITY VENOUS DOPPLER HISTORY: right calf pain/swelling COMPARISON STUDY: None. FINDINGS: There is normal compressibility, flow, and augmentation within the right lower extremity de ep venous system. IMPRESSION: No DVT within the right lower extremity ACT 112: Negative or not required by law. Electronically signed by: Jc Che M.D. 07/21/2020 8:12 AM
[2020-07-21] MEDS: INSULIN GLARGINE SOLOSTAR 100 UNITS/ML 3 ML PEN SC SCH ×2 (08:19→22:27)
--- NOTE | 2020-07-21 08:43 | Orthopedic Progress Note ---
Date of Service July 21, 2020 Assessment & Plan (1) Neurogenic claudication due to lumbar spinal stenosis: Admission and Anticipated Discharge Date Admission Date: July 10, 2020 At this time I am going to transfuse 2 units of packed red blood cells today. We may need to initiate anticoagulation therapy today. Subjective Patient complaining of some right calf pain episodes of blurry vision throughout the evening and upper extremity coordination deficits. Denies any headache. Denies any significant back pain or radiculopathy. His left lower extremity pain is improved. Physical Exam Physical Exam: On exam is stable in bed. Is reasonable strength detailed testing lower extremities. He is alert and oriented to place and time. Results & Data ([facility]) Vital Signs (Past 12 Hours) Vital Signs Temp Pulse Resp BP Pulse Ox 07/21/20 07:48 37.7 C H 70 18 106/54 L 96 07/21/20 03:52 37.4 C 74 16 104/63 97 07/20/20 23:02 37 C 64 18 108/64 93
--- NOTE | 2020-07-21 09:59 | CT Scan Report ---
CT OF THE HEAD WITHOUT CONTRAST CLINICAL HISTORY: vision change, off balance COMPARISON STUDY: Head CT July 10, 2020. CT DOSE: 823.94 mGycm TECHNIQUE: Helical axial images of the head were obtained without IV contrast. Automated exposure con trol was utilized for the study. A dose lowering technique was utilized adhering to the principles o f ALARA. FINDINGS: No acute intracranial hemorrhage, midline shift or mass effect is present. The ventricular system is unremarkable. The basal cisterns are patent. White matter hypodensity suggests small vessel disease. 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 No extra-axial col lections are present. There are no findings to suggest acute dural sinus thrombosis or acute territor ial infarct. No significant calvarial abnormalities are present. Bilateral mastoid are cells are part ially opacified, left greater than right. This is unchanged. IMPRESSION: No acute intracranial findings. No significant change since previous exam. ACT 112: Negative or not required by law. Electronically signed by: John Paul Drummond M.D. 07/21/2020 9:57 AM
[2020-07-21] MEDS: ACETAMINOPHEN 500 MG TAB PO PRN (11:28)
[2020-07-21] MEDS ORDERED: Heparin IV Adult Wt-Based Low-Dose WITH Bolus Protocol IV SCH (15:15)
[2020-07-21] MEDS ORDERED: HEPARIN SODIUM/DEXTROSE 25,000 UNITS/500 ML BAG IV SCH (15:45)
[2020-07-21] MEDS ORDERED: HEPARIN IV BOLUS 4,000 UNITS in SYRINGE 0 ML IV ONE (16:00)
[2020-07-21 16:23] LABS: Basophils # (auto) 0.01 K/uL (0-0.2); Basophils % (auto) 0.1 %; Eosinophils # (auto) 0.03 K/uL (0-0.5); Eosinophils % (auto) 0.3 %; Hematocrit (blood only) 31.1 % (42-52); Immature Granulocytes # (auto) 0.07 K/uL (0.00-0.02); Immature Granulocytes % (auto) 0.8 %; Lymphocytes # (auto) 0.57 K/uL (1.2-3.4); Lymphocytes % (auto) 6.3 %; Mean Corpuscular Hemoglobin 27.6 pg (25-34); Mean Corpuscular Volume 85.9 fL (80-100); Mean Platelet Volume 9.4 fL (7.4-10.4); Monocytes # (auto) 0.32 K/uL (0.11-0.59); Monocytes % (auto) 3.5 %; Neutrophils # (auto) 8.07 K/uL (1.4-6.5); Platelet Count 124 K/uL (130-400); RDW Coefficient of Variation 15.9 % (11.5-14.5); RDW Standard Deviation 50.7 fL (36.4-46.3); Red Blood Count 3.62 M/uL (4.7-6.1); White Blood Count 9.07 K/uL (4.8-10.8)
[2020-07-21 16:51] LABS: INR 1.1 (0.9-1.1); Partial Thromboplastin Time 27.1 Seconds (21.0-31.0); Prothrombin Time 10.8 Seconds (9.0-12.0)
[2020-07-21 17:55] LABS: Mean Corpuscular Hgb Conc 32.2 g/dL (32-36)
[2020-07-21] MEDS ORDERED: Nursing to Pharmacy Communication SCH (18:00)
--- NOTE | 2020-07-21 18:01 | Hospitalist Progress Note ---
Date of Service July 21, 2020 Assessment & Plan (1) Encephalopathy: 3- drowsy, arouses to voice HCT no acute findings likely related to anesthetics and pain meds monitoring closely for improvement (2) Dysphagia: nurse noted coughing with meal Keep NPO until speech can see (3) Neurogenic claudication due to lumbar spinal stenosis: severe disease at the L5 level, left leg radiculopathy good response to Percocet PRN increased gabapentin to 600mg TID for better control of neuropathic pain, working well, no increased lethargy plan for OR next week, Dr. Agarwal following, he will determine timing on Lovenox now for full anticoagulation that can be held prior to surgery 07-19 OR tomorrow holding lovenox, bridge with heparin stop heparin 4 hours before surgery 07-20 lost 850ml blood during OR continue to hold anticoag (4) History of aortic valve replacement: mchanical valve remains on coumadin hold Coumadin Lovenox 07-19 holding lovenox, bridge with heparin 07-20 anticoagulants on hold 07-21 started low dose heparin drip with bolus discussed with Dr. Agarwal and he approves (5) Nerve root compression: see above pain control with Percocet, gabapentin 600mg TID (6) Anemia: 07-20 chronic and blood loss 850ml in OR monitor CBC closely (7) Weakness: Increasing weakness and falls possibly due to a combination of lumbar spinal stenosis and Parkinson's Disease Weakness: -Patient with recent and frequent history of falls with recent hospitalization in May; during this admission initial recommendation was for SNF at [facility], however patient declined in favor of returning home MRI from 05/30/2020 it is as follows IMPRESSION: 1. No significant change in appearance of the lumbar spine since MRI of January 21, 2020. Status post L2-L4 laminectomy. No central canal stenosis. 2. Moderate to severe multilevel neural foraminal stenosis, most pronounced at the left L3-L4 and bilateral L5-S1 neural foramen -PT/OT evaluations ordered anticipate him needing rehab, he is currently living alone, cannot live with family due to ongoing issues, has demonstrated that he falls a lot at home, concerned about safety -consult Dr. Agarwal, he can offer surgery but patient is very complicated medically, high risk of complications d/w the patient, he wants to proceed with surgery, he understands the risks, states that he has no quality of life with the pain and instability would rather take risk of surgery than live like this spoke with Dr. Agarwal, plan for surgery next week holding Coumadin in anticipation, INR is 1.1 today, continue Lovenox for full anticoagulation (8) Chronic kidney disease, stage 3a: Cr is stable at this time, making urine electrolytes stable (9) PAF (paroxysmal atrial fibrillation): Paroxysmal atrial fibrillation: -History of paroxysmal atrial fibrillation -EKG in ED demonstrating concerns for return of atrial fibrillation without RVR -not on any rate controlling medication Continue home warfarin dosing-> INR is 1.2, continue Lovenox 3-22 holding anticoag for surgery (10) HLD (hyperlipidemia): (11) Diabetes: Diabetes: -Known diabetic, last A1c 7.3 on 05/29/2020 -Home regimen including Trulicity, glargine, aspart -Temporarily will hold Trulicity -BSG's ACHS, with SSI and glargine, monitor for hypo and hyperglycemic episodes (12) Parkinsonism: Parkinsonism: -Follows with neurology (Dr. 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 Buckley in early June, plan to start Rituxan soon as outpatient, he has had his 2nd COVID vaccine shot on hold for now while we work on correcting his lumbar spine issues (15) Severe protein-calorie malnutrition: encourage PO intake, supplements (16) Constipated: will order the Miralax 34gm q6 PRN (he takes this dose at home) still not effective, will give Dulcolax suppository today (17) Tinea cruris: Terbinafine cream BID likely due to ongoing Prednisone use rash is better, would continue for two weeks likely to recur as long as he is on Prednisone Admission and Anticipated Discharge Date Admission Date: July 10, 2020 Subjective Patient had surgery yesterday, still groggy today Needing two units PRBC today no nausea or vomiting no back pain tolerated broth and applesauce this morning no BM yet fever to 101 today Review of Systems Constitutional: no fever, no chills, no fatigue, no weakness, no anorexia, no weight loss and no weight gain Ear, Nose, Mouth, Throat: no nasal congestion, no sore throat and no dysphagia Respiratory: no cough and no dyspnea Cardiovascular: no chest pain, no dyspnea on exertion, no orthopnea and no palpitations Gastrointestinal: no abdominal pain, no nausea, no vomiting, no hematemesis, no dysphagia, no constipation, no diarrhea/loose stools, no blood in stools and no melena Genitourinary: no dysuria and no hematuria Musculoskeletal: no back pain, no joint pain, no myalgia and no muscle weakness Integumentary: no rash, no lesions, no skin ulcer, no erythema, no dry skin and no pruritus Neurologic: no falls, no localized weakness, no generalized weakness, no numbness, no paresthesia, no tremor(s) and no headache(s) Psychiatric: no depression, no suicidal ideation, no homicidal ideation and no anxiety Endocrine: no cold intolerance and no heat intolerance Hematologic / Lymphatic: no easy bleeding and no easy bruising Physical Exam Constitutional: well developed and well nourished; no acute distress Eyes: PERRL, conjunctivae normal, anicteric sclerae ENMT: Mouth: oral mucous membranes not dry Respiratory: normal respiratory effort; no respiratory distress and no labored breathing Auscultation: lungs clear to auscultation bilaterally; no crackles, no rales, no rhonchi and no wheezes Cardiovascular: Rate/Rhythm: regular rate and regular rhythm Heart Sounds: no murmur and no cardiac rub Vessels: normal peripheral pulses and radial pulses present; no JVD Extremities: + edema (right leg 1+ pitting edema) Gastrointestinal (Abdomen): Inspection/Auscultation: abdomen normal to inspection and normal bowel sounds; abdomen not distended Percussion/Palpation: abdomen soft; abdomen nontender, no guarding, abdomen not rigid and no hepatosplenomegaly Musculoskeletal: Head/Neck/Chest: normocephalic and head atraumatic Spine: no cervical spinal tenderness, no cervical muscular tenderness, no thoracic spinal tenderness and no lumbar spinal tenderness Skin: no rashes, warm and dry Neurologic: CN's II-XI intact bilaterally, moves all extremities, + confused and + obtunded Motor/Sensory: no tremor and no sensory deficit Psychiatric: Orientation: alert, oriented to person, oriented to place and oriented to time Apperance: appropriately groomed; not disheveled Affect: euthymic affect; no anxious affect and no tearful affect Results & Data Results & Data ([facility]) Vital Signs (Past 12 Hours) Vital Signs Temp Pulse Pulse Resp BP BP Pulse Ox 07/21/20 17:15 36.9 C 72 20 133/63 98 07/21/20 16:15 37.0 C 76 18 118/66 98 07/21/20 15:45 36.9 C 73 18 105/61 100 07/21/20 15:30 96 07/21/20 15:15 36.9 C 80 18 100/57 L 98 07/21/20 15:00 36.7 C 71 20 124/68 98 07/21/20 14:40 36.9 C 82 18 113/66 07/21/20 14:12 37 C 84 18 136/63 95 07/21/20 13:44 36.9 C 68 20 117/58 L 95 07/21/20 12:45 37.1 C 73 20 107/63 97 07/21/20 11:45 37.2 C 88 18 110/64 97 07/21/20 11:37 80 18 90 07/21/20 11:24 38.0 C H 07/21/20 11:15 36.8 C 75 18 101/60 97 07/21/20 11:00 36.8 C 74 16 99/55 L 97 07/21/20 10:40 37.3 C 67 16 110/56 L 97 07/21/20 07:48 37.7 C H 70 18 106/54 L 96 PG Care Time/CCT Total # of Minutes Spent Total Time Spent with Patient: Total time spent is greater than 50% in coordination of care (as documented) at patient's floor/unit and/or counseling patient: Coding Level of Care Code 40579 Subseq Hosp Care Lvl 2 Diagnoses Encephalopathy G93.40 Dysphagia R13.10 Dysphagia type: unspecified Neurogenic claudication due to lumbar spinal stenosis M48.062 History of aortic valve replacement Z95.2 Nerve root compression G54.9 Anemia D64.9 Anemia type: unspecified type Weakness R53.1 Chronic kidney disease, stage 3a N18.3 PAF (paroxysmal atrial fibrillation) I48.0 HLD (hyperlipidemia) E78.2 Hyperlipidemia type: mixed hyperlipidemia Diabetes E11.42; Z79.4 Diabetes mellitus type: type 2 Diabetes mellitus assisted insulin use: with assisted use Diabetes mellitus complication status: with neurologic complications Diabetes mellitus complication detail: with polyneuropathy Parkinsonism G20 Fall [id number] Interstitial lung disease J84.9 Severe protein-calorie malnutrition E43 Constipated K59.00 Constipation type: unspecified constipation type Tinea cruris B35.6 (1) Anemia Anemia type: unspecified type Qualified Code(s): D64.9 - Anemia, unspecified (2) HLD (hyperlipidemia) Hyperlipidemia type: mixed hyperlipidemia Qualified Code(s): E78.2 - Mixed hyperlipidemia (3) Diabetes Diabetes mellitus type: type 2 Diabetes mellitus manager intermediate insulin use: with manager intermediate use Diabetes mellitus complication status: with neurologic complications Diabetes mellitus complication detail: with polyneuropathy Qualified Code(s): E11.42 - Type 2 diabetes mellitus with diabetic polyneuropathy; Z79.4 - snf (current) use of insulin (4) Constipated Constipation type: unspecified constipation type Qualified Code(s): K59.00 - Constipation, unspecified (5) Dysphagia Dysphagia type: unspecified Qualified Code(s): R13.10 - Dysphagia, unspecified
[2020-07-21] MEDS ORDERED: NALOXONE HCL INJ 1 MG/ML 2ML SYR INTNAS ONE (21:17)
--- NOTE | 2020-07-21 21:25 | Communication Note ---
Date of Service: July 21, 2020 Called to bedside by nursing following patient having increased lethargy, patient was lethargic earlier in the day but seemed to have partially cleared until he about 1900 this evening. Ordered CBC/CMP/Ammonia/ABG. Bedside BSG of 266. On my presentation to bedside, patient lethargic, non-toxic appearing, following commands intermittently, able to move all extremities on command with 2+ b/l patellar and brachial reflexes. Patient rapidly returning to sleep between commands, but arousable by verbal stimulus. Had CT head earlier today for similar concerns of lethargy which did not demonstrated acute intracranial findings. Lab work from earlier in the day demonstrating a mild anemia but improved from previous, no significant electrolyte abnormalities at that time. Trialed one dose of Narcan with improvement in mentation and resolution of sedation. Resident Activity Tracking Resident Involvement: Resident Care Provided and Chipper Operator Coverage Note Care Provided: Adult Hospital Medicine
[2020-07-21 21:42] LABS: Basophils # (auto) 0.01 K/uL (0-0.2); Basophils % (auto) 0.1 %; Eosinophils # (auto) 0.02 K/uL (0-0.5); Eosinophils % (auto) 0.3 %; Hemoglobin 10.9 g/dL (14.0-18.0); Immature Granulocytes # (auto) 0.04 K/uL (0.00-0.02); Immature Granulocytes % (auto) 0.5 %; Lymphocytes # (auto) 0.58 K/uL (1.2-3.4); Lymphocytes % (auto) 7.5 %; Mean Corpuscular Hemoglobin 27.8 pg (25-34); Mean Corpuscular Volume 86.7 fL (80-100); Monocytes # (auto) 0.42 K/uL (0.11-0.59); Monocytes % (auto) 5.4 %; Neutrophils # (auto) 6.64 K/uL (1.4-6.5); Neutrophils % (auto) 86.2 %; Platelet Count 128 K/uL (130-400); RDW Coefficient of Variation 15.7 % (11.5-14.5); Red Blood Count 3.92 M/uL (4.7-6.1); White Blood Count 7.71 K/uL (4.8-10.8)
[2020-07-21 21:50] LABS: Mean Corpuscular Hgb Conc 32.1 g/dL (32-36)
[2020-07-21 21:54] LABS: Base Excess ABG -3.2 mEq/L (-9-1.8); HCO3 ABG 24 mmol/L (19-24); PCO2 ABG 50 mmHg (35-46); PO2 ABG 27 mmHg (80-95); pH ABG 7.29 (7.35-7.45)
[2020-07-21 21:59] LABS: Albumin Level 3.1 gm/dl (3.4-5.0); BUN Creatinine Ratio 13.4 (10-20); Calcium 8.7 mg/dl (8.5-10.1); Creatinine Clr Calc Pharmacy 51.4 ml/min; Est GFR (African American) 53.8; Est GFR (Non-African American) 46.4; Magnesium 2.1 mg/dl (1.8-2.4); Potassium 4.1 mmol/L (3.5-5.1)
[2020-07-21 22:00] LABS: Oxygen Saturation ABG < 60.0 % (90-95)
[2020-07-21 22:09] LABS: Allen Test Pos (Pos)
[2020-07-21 22:11] LABS: Albumin Globulin Ratio 1.2 (0.9-2); Bilirubin,Total 0.7 mg/dl (0.2-1); Globulin 2.7 gm/dl (2.5-4.0); Total Protein 5.8 gm/dl (6.4-8.2)
[2020-07-21] MEDS: ATORVASTATIN 40 MG TAB PO SCH (22:24)
[2020-07-21] MEDS: allopurinoL 100 MG TAB PO SCH (22:37)
[2020-07-22 01:52] LABS: Partial Thromboplastin Time 53.9 Seconds (21.0-31.0)
[2020-07-22 05:44] LABS: Hematocrit (blood only) 31.6 % (42-52); Hemoglobin 10.1 g/dL (14.0-18.0); Mean Corpuscular Hemoglobin 27.5 pg (25-34); Mean Corpuscular Volume 86.1 fL (80-100); Mean Platelet Volume 9.7 fL (7.4-10.4); Platelet Count 128 K/uL (130-400); RDW Coefficient of Variation 15.8 % (11.5-14.5); RDW Standard Deviation 49.7 fL (36.4-46.3); Red Blood Count 3.67 M/uL (4.7-6.1); White Blood Count 6.11 K/uL (4.8-10.8)
[2020-07-22 06:07] LABS: BUN Creatinine Ratio 13.3 (10-20); Calcium 8.1 mg/dl (8.5-10.1); Creatinine Clr Calc Pharmacy 64.6 ml/min; Est GFR (Non-African American) 61.3; Magnesium 2.1 mg/dl (1.8-2.4); Potassium 3.7 mmol/L (3.5-5.1)
[2020-07-22] MEDS ORDERED: Nursing to Pharmacy Communication SCH ×2 (06:15→19:30)
[2020-07-22] MEDS: INSULIN ASPART 100 UNITS/ML 3 ML PEN SC SCH ×3 (06:18→18:11)
[2020-07-22 06:43] LABS: Phosphorus 2.9 mg/dl (2.5-4.9)
[2020-07-22] MEDS: FINASTERIDE 5 MG TAB PO SCH (07:44)
[2020-07-22] MEDS: TOPIRAMATE 100 MG TAB PO SCH ×2 (07:45→20:47)
[2020-07-22] MEDS: CARBIDOPA/LEVODOPA 25/100MG TAB PO SCH ×3 (07:45→20:47)
[2020-07-22] MEDS: levETIRAcetam 500 MG TAB PO SCH ×2 (07:45→20:47)
[2020-07-22] MEDS: GABAPENTIN 600 MG TAB PO SCH ×3 (07:45→20:47)
[2020-07-22] MEDS: predniSONE 10 MG TABLET PO SCH (07:45)
[2020-07-22] MEDS: TERBINAFINE CR 30 GM TUBE EXT SCH ×2 (07:49→20:48)
[2020-07-22] MEDS: INSULIN GLARGINE SOLOSTAR 100 UNITS/ML 3 ML PEN SC SCH ×2 (08:25→21:52)
--- NOTE | 2020-07-22 12:05 | Orthopedic Progress Note ---
Date of Service July 22, 2020 Assessment & Plan (1) Neurogenic claudication due to lumbar spinal stenosis: Admission and Anticipated Discharge Date Admission Date: July 10, 2020 This time encourage him to undergo physical therapy as tolerated. He ultimately will need to go to a [facility] or rehab facility. He may be a candidate for discharge in the next few days. Subjective Back pain controlled struggling with some right leg pain. Left leg symptoms resolved. Physical Exam Physical Exam: On exam he was able to stand with the assistance of 2 physical therapist. He is quite shaky. Results & Data ([facility]) Vital Signs (Past 12 Hours) Vital Signs Temp Pulse Resp BP BP Pulse Ox 07/22/20 09:27 95 07/22/20 07:15 37.1 C 69 16 106/66 96 07/22/20 03:12 37.2 C 73 16 114/72 93
[2020-07-22] MEDS: ACETAMINOPHEN 500 MG TAB PO PRN ×2 (12:07→22:27)
[2020-07-22] MEDS ORDERED: SODIUM CHLORIDE 0.9% 1000ML 1,000 ML IV ONE (14:58)
--- NOTE | 2020-07-22 16:52 | Hospitalist Progress Note ---
Date of Service July 22, 2020 Assessment & Plan (1) Encephalopathy: 07-21 drowsy, arouses to voice HCT no acute findings likely related to anesthetics and pain meds monitoring closely for improvement 07-22 improved with narcan and cessation of narcotics complaining of pain and was on percocet prior to arrival, so will likely resume tomorrow (2) Dysphagia: nurse noted coughing with meal Keep NPO until speech can see some coughing, awaiting formal speech eval (3) Neurogenic claudication due to lumbar spinal stenosis: severe disease at the L5 level, left leg radiculopathy good response to Percocet PRN increased gabapentin to 600mg TID for better control of neuropathic pain, working well, no increased lethargy plan for OR next week, Dr. Agarwal following, he will determine timing on Lovenox now for full anticoagulation that can be held prior to surgery 07-19 OR tomorrow holding lovenox, bridge with heparin stop heparin 4 hours before surgery 07-20 lost 850ml blood during OR continue to hold anticoag 07-21 started low dose heparin drip 07-22 start high dose heparin drip (4) History of aortic valve replacement: mchanical valve remains on coumadin hold Coumadin Lovenox 07-19 holding lovenox, bridge with heparin 07-20 anticoagulants on hold 07-21 started low dose heparin drip with bolus discussed with Dr. Agarwal and he approves 07-22 advance to high dose heparin (5) Nerve root compression: see above pain control with Percocet, gabapentin 600mg TID (6) Anemia: 07-20 chronic and blood loss 850ml in OR monitor CBC closely (7) Weakness: Increasing weakness and falls possibly due to a combination of lumbar spinal stenosis and Parkinson's Disease Weakness: -Patient with recent and frequent history of falls with recent hospitalization in May; during this admission initial recommendation was for SNF at [facility], however patient declined in favor of returning home MRI from 05/30/2020 it is as follows IMPRESSION: 1. No significant change in appearance of the lumbar spine since MRI of January 21, 2020. Status post L2-L4 laminectomy. No central canal stenosis. 2. Moderate to severe multilevel neural foraminal stenosis, most pronounced at the left L3-L4 and bilateral L5-S1 neural foramen -PT/OT evaluations ordered anticipate him needing rehab, he is currently living alone, cannot live with family due to ongoing issues, has demonstrated that he falls a lot at home, concerned about safety -consult Dr. Agarwal, he can offer surgery but patient is very complicated medically, high risk of complications d/w the patient, he wants to proceed with surgery, he understands the risks, states that he has no quality of life with the pain and instability would rather take risk of surgery than live like this spoke with Dr. Agarwal, plan for surgery next week holding Coumadin in anticipation, INR is 1.1 today, continue Lovenox for full anticoagulation (8) Chronic kidney disease, stage 3a: Cr is stable at this time, making urine electrolytes stable (9) PAF (paroxysmal atrial fibrillation): Paroxysmal atrial fibrillation: -History of paroxysmal atrial fibrillation -EKG in ED demonstrating concerns for return of atrial fibrillation without RVR -not on any rate controlling medication Continue home warfarin dosing-> INR is 1.2, continue Lovenox 3-22 holding anticoag for surgery 3-25 anticoag resumed (10) HLD (hyperlipidemia): (11) Diabetes: Diabetes: -Known diabetic, last A1c 7.3 on 05/29/2020 -Home regimen including Trulicity, glargine, aspart -Temporarily will hold Trulicity -BSG's ACHS, with SSI and glargine, monitor for hypo and hyperglycemic episodes (12) Parkinsonism: Parkinsonism: -Follows with neurology (Dr. 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 Buckley in early June, plan to start Rituxan soon as outpatient, he has had his 2nd COVID vaccine shot on hold for now while we work on correcting his lumbar spine issues (15) Severe protein-calorie malnutrition: encourage PO intake, supplements (16) Constipated: will order the Miralax 34gm q6 PRN (he takes this dose at home) still not effective, will give Dulcolax suppository today (17) Tinea cruris: Terbinafine cream BID likely due to ongoing Prednisone use rash is better, would continue for two weeks likely to recur as long as he is on Prednisone Admission and Anticipated Discharge Date Admission Date: July 10, 2020 Subjective Patient received narcan last night due to excessive drowsiness -- he responded well Today more alert Complaining of pain in back and down his leg No improvement in pain symptoms relative to prior to surgery Had a good BM today Denies coughing Stood with PT today Some coughing with food, awaiting formal speech eval Review of Systems Constitutional: no fever, no chills, no fatigue, no weakness, no anorexia, no weight loss and no weight gain Ear, Nose, Mouth, Throat: no nasal congestion, no sore throat and no dysphagia Respiratory: no cough and no dyspnea Cardiovascular: no chest pain, no dyspnea on exertion, no orthopnea and no palpitations Gastrointestinal: no abdominal pain, no nausea, no vomiting, no hematemesis, no dysphagia, no constipation, no diarrhea/loose stools, no blood in stools and no melena Genitourinary: no dysuria and no hematuria Musculoskeletal: + back pain and + radicular pain; no joint pain, no myalgia and no muscle weakness Integumentary: no rash, no lesions, no skin ulcer, no erythema, no dry skin and no pruritus Neurologic: no falls, no localized weakness, no generalized weakness, no numbness, no paresthesia, no tremor(s) and no headache(s) Psychiatric: no depression, no suicidal ideation, no homicidal ideation and no anxiety Endocrine: no cold intolerance and no heat intolerance Hematologic / Lymphatic: no easy bleeding and no easy bruising Physical Exam Constitutional: well developed and well nourished; no acute distress Eyes: PERRL, conjunctivae normal, anicteric sclerae ENMT: Mouth: oral mucous membranes not dry Respiratory: normal respiratory effort; no respiratory distress and no labored breathing Auscultation: lungs clear to auscultation bilaterally; no crackles, no rales, no rhonchi and no wheezes Cardiovascular: Rate/Rhythm: regular rate and regular rhythm Heart Sounds: no murmur and no cardiac rub Vessels: normal peripheral pulses and radial pulses present; no JVD Extremities: + edema (right leg 1+ pitting edema) Gastrointestinal (Abdomen): Inspection/Auscultation: abdomen normal to inspection and normal bowel sounds; abdomen not distended Percussion/Palpati on: abdomen soft; abdomen nontender, no guarding, abdomen not rigid and no hepatosplenomegaly Musculoskeletal: Head/Neck/Chest: normocephalic and head atraumatic Spine: lumbar spine normal to inspection (drain with minimal clear serosanguineous output); no cervical spinal tenderness, no cervical muscular tenderness, no thoracic spinal tenderness and no lumbar spinal tenderness Skin: no rashes, warm and dry Neurologic: CN's II-XI intact bilaterally, moves all extremities, + confused and + obtunded Motor/Sensory: no tremor and no sensory deficit Psychiatric: Orientation: alert, oriented to person, oriented to place and oriented to time Apperance: appropriately groomed; not disheveled Affect: euthymic affect; no anxious affect and no tearful affect Results & Data Results & Data ([facility]) Vital Signs (Past 12 Hours) Vital Signs Temp Pulse Resp BP BP Pulse Ox 07/22/20 16:00 37.1 C 99 H 14 99/59 L 96 07/22/20 15:28 36.7 C 102 H 14 94/54 L 94 07/22/20 15:04 106 H 16 75/48 L 94 07/22/20 14:52 107 H 83/58 L 07/22/20 14:45 190 H 14 90/47 L 92 07/22/20 09:27 95 07/22/20 07:15 37.1 C 69 16 106/66 96 PG Care Time/CCT Total # of Minutes Spent Total Time Spent with Patient: Total time spent is greater than 50% in coordination of care (as documented) at patient's floor/unit and/or counseling patient: Coding Level of Care Code 15011 Subseq Hosp Care Lvl 2 Diagnoses Encephalopathy G93.40 Dysphagia R13.10 Dysphagia type: unspecified Neurogenic claudication due to lumbar spinal stenosis M48.062 History of aortic valve replacement Z95.2 Nerve root compression G54.9 Anemia D64.9 Anemia type: unspecified type Weakness R53.1 Chronic kidney disease, stage 3a N18.3 PAF (paroxysmal atrial fibrillation) I48.0 HLD (hyperlipidemia) E78.2 Hyperlipidemia type: mixed hyperlipidemia Diabetes E11.42; Z79.4 Diabetes mellitus type: type 2 Diabetes mellitus vermin exterminator insulin use: with vermin exterminator use Diabetes mellitus complication status: with neurologic complications Diabetes mellitus complication detail: with polyneuropathy Parkinsonism G20 Fall [id number].XXXA Interstitial lung disease J84.9 Severe protein-calorie malnutrition E43 Constipated K59.00 Constipation type: unspecified constipation type Tinea cruris B35.6 (1) Dysphagia Dysphagia type: unspecified Qualified Code(s): R13.10 - Dysphagia, unspecified (2) Anemia Anemia type: unspecified type Qualified Code(s): D64.9 - Anemia, unspecified (3) HLD (hyperlipidemia) Hyperlipidemia type: mixed hyperlipidemia Qualified Code(s): E78.2 - Mixed hyperlipidemia (4) Diabetes Diabetes mellitus type: type 2 Diabetes mellitus vermin exterminator insulin use: with vermin exterminator use Diabetes mellitus complication status: with neurologic complications Diabetes mellitus complication detail: with polyneuropathy Qualified Code(s): E11.42 - Type 2 diabetes mellitus with diabetic polyneuropathy; Z79.4 - nursing home (current) use of insulin (5) Constipated Constipation type: unspecified constipation type Qualified Code(s): K59.00 - Constipation, unspecified
[2020-07-22] MEDS ORDERED: HEPARIN SODIUM/DEXTROSE 25,000 UNITS/500 ML BAG IV SCH (17:00)
[2020-07-22 18:00] LABS: Partial Thromboplastin Ratio 1.8
[2020-07-22 18:14] LABS: Partial Thromboplastin Time 47.9 Seconds (21.0-31.0)
[2020-07-22] MEDS: ALBUT/IPRATROP 3MG/0.5MG NEB 3 ML VIAL INH PRN (18:42)
[2020-07-22] MEDS: allopurinoL 100 MG TAB PO SCH (20:47)
[2020-07-22] MEDS: ATORVASTATIN 40 MG TAB PO SCH (20:48)
[2020-07-22] MEDS: ENOXAPARIN 100 MG/1ML SYR SQ SCH (21:52)
[2020-07-23] MEDS: INSULIN ASPART 100 UNITS/ML 3 ML PEN SC SCH ×4 (00:05→18:14)
[2020-07-23 05:49] LABS: Basophils # (auto) 0.01 K/uL (0-0.2); Basophils % (auto) 0.2 %; Eosinophils # (auto) 0.09 K/uL (0-0.5); Eosinophils % (auto) 1.7 %; Hematocrit (blood only) 30.2 % (42-52); Hemoglobin 9.7 g/dL (14.0-18.0); Immature Granulocytes # (auto) 0.02 K/uL (0.00-0.02); Immature Granulocytes % (auto) 0.4 %; Lymphocytes # (auto) 0.64 K/uL (1.2-3.4); Lymphocytes % (auto) 12.2 %; Mean Corpuscular Hemoglobin 27.6 pg (25-34); Mean Corpuscular Hgb Conc 32.1 g/dL (32-36); Mean Platelet Volume 9.9 fL (7.4-10.4); Monocytes % (auto) 5.7 %; Neutrophils # (auto) 4.17 K/uL (1.4-6.5); Neutrophils % (auto) 79.8 %; Platelet Count 120 K/uL (130-400); RDW Coefficient of Variation 15.9 % (11.5-14.5); RDW Standard Deviation 50.6 fL (36.4-46.3); Red Blood Count 3.51 M/uL (4.7-6.1); White Blood Count 5.23 K/uL (4.8-10.8)
[2020-07-23 06:02] LABS: Partial Thromboplastin Ratio 1.5; Partial Thromboplastin Time 40.4 Seconds (21.0-31.0)
[2020-07-23 06:20] LABS: BUN Creatinine Ratio 16.6 (10-20); Calcium 8.4 mg/dl (8.5-10.1); Creatinine Clr Calc Pharmacy 65.2 ml/min; Est GFR (African American) 71.7; Est GFR (Non-African American) 61.9; Potassium 3.5 mmol/L (3.5-5.1)
[2020-07-23 06:21] LABS: Phosphorus 2.7 mg/dl (2.5-4.9)
[2020-07-23] MEDS: levETIRAcetam 500 MG TAB PO SCH ×2 (08:28→19:53)
[2020-07-23] MEDS: GABAPENTIN 600 MG TAB PO SCH ×3 (08:28→19:54)
[2020-07-23] MEDS: CARBIDOPA/LEVODOPA 25/100MG TAB PO SCH ×3 (08:29→19:53)
[2020-07-23] MEDS: predniSONE 10 MG TABLET PO SCH (08:30)
[2020-07-23] MEDS: TOPIRAMATE 100 MG TAB PO SCH ×2 (08:30→19:54)
[2020-07-23] MEDS: ENOXAPARIN 100 MG/1ML SYR SQ SCH ×2 (08:31→19:54)
[2020-07-23] MEDS: FINASTERIDE 5 MG TAB PO SCH (08:31)
[2020-07-23] MEDS: ACETAMINOPHEN 325 MG TAB PO PRN ×2 (08:38→14:48)
[2020-07-23] MEDS: TERBINAFINE CR 30 GM TUBE EXT SCH ×2 (08:43→19:52)
[2020-07-23] MEDS: INSULIN GLARGINE SOLOSTAR 100 UNITS/ML 3 ML PEN SC SCH ×2 (09:00→19:52)
--- NOTE | 2020-07-23 09:00 | Orthopedic Progress Note ---
Date of Service July 23, 2020 Assessment & Plan (1) Neurogenic claudication due to lumbar spinal stenosis: At this point need to continue with physical therapy and Occupational Therapy. Continue with pain control and GI DVT prophylaxis measures. Going to discontinue his YENNI drain and dressing change today. And he is going to need shelter placement. Admission and Anticipated Discharge Date Admission Date: July 10, 2020 Subjective Patient was seen bedside in room 356. He is having some difficulties with his right leg. He also has moderate back pain. He is requiring to assist just to get him out of bed. He can only stand for short period of time. He denies any other numbness, tingling, or paresthesias. Physical Exam Physical Exam: On exam he is alert and oriented. The dressings clean dry intact YENNI drains in place and is holding suction. His abdomen soft nontender calves are supple nontender. His gait was not observed. Results & Data ([facility]) Vital Signs (Past 12 Hours) Vital Signs Temp Pulse Resp BP Pulse Ox 07/23/20 07:33 36.9 C 67 16 123/65 98 07/22/20 22:34 36.8 C 102 H 18 104/65 96
[2020-07-23 10:47] LABS: Influenza A virus by PCR Negative (Neg); Influenza B virus by PCR Negative (Neg); RSV by PCR Negative (Neg); SARS CoV2 RNA(COVID-19) InHosp NEGATIVE (Negative)
--- NOTE | 2020-07-23 14:21 | Fluoroscopy Report ---
FL video swallow HISTORY: r/o aspiration; determine diet TECHNIQUE: Video fluoroscopic evaluation of swallowing was performed in the AP and lateral projection s by the speech pathology staff. The patient is fed nectar-thick and thin liquid barium, a barium coa stefano wafer, and barium pudding. FLUOROSCOPY TIME: 3.9 minutes. A cine loop submitted.. COMPARISON STUDY: None. FINDINGS: Overall poor pharyngeal constriction with multiple episodes of incomplete epiglottic deflec tion. There is significant residue at the vallecula and piriform sinuses. This results in multiple ep isodes of aspiration, some of which were silent, with all barium consistencies. No significant penetr ation or aspiration identified. Swallowing function is within normal limits. IMPRESSION: 1. Multiple episodes of aspiration secondary to the overall poor pharyngeal constriction. 2. Please see the speech pathologist report for detailed findings and recommendations. ACT 112: Negative or not required by law. Electronically signed by: Jc Ceh M.D. 07/23/2020 2:20 PM
[2020-07-23] MEDS: SODIUM CHLORIDE 0.9% 1000ML 1,000 ML IV SCH (14:44)
--- NOTE | 2020-07-23 16:15 | Hospitalist Progress Note ---
Date of Service July 23, 2020 Assessment & Plan (1) Dysphagia: nurse noted coughing with meal Keep NPO until speech can see some coughing, awaiting formal speech eval 07-23 Failed VFSS with all consistencies placed palliative consult for help with goals of care and decision about PEG or no PEG (2) Neurogenic claudication due to lumbar spinal stenosis: severe disease at the L5 level, left leg radiculopathy good response to Percocet PRN increased gabapentin to 600mg TID for better control of neuropathic pain, working well, no increased lethargy plan for OR next week, Dr. Agarwal following, he will determine timing on Lovenox now for full anticoagulation that can be held prior to surgery 07-19 OR tomorrow holding lovenox, bridge with heparin stop heparin 4 hours before surgery 07-23 drain with minimal serosanguineous output -- removed today (3) History of aortic valve replacement: mchanical valve remains on coumadin hold Coumadin Lovenox 07-19 holding lovenox, bridge with heparin 07-20 anticoagulants on hold 07-21 started low dose heparin drip with bolus discussed with Dr. Agarwal and he approves 07-22 advance to lovenox BID 07-23 continue lovenox BID, will need to resume coumadin as soon as able/if no PEG in the plans (4) Encephalopathy: 07-21 drowsy, arouses to voice HCT no acute findings likely related to anesthetics and pain meds monitoring closely for improvement 07-22 improved with narcan and cessation of narcotics complaining of pain and was on percocet prior to arrival, so will likely resume tomorrow 07-23 pain improved, not requiring pain meds mentation at baseline (5) Nerve root compression: see above pain control with Percocet, gabapentin 600mg TID percocet DC'd due to mental status changes (6) Anemia: 07-20 chronic and blood loss 850ml in OR monitor CBC closely (7) Weakness: Increasing weakness and falls possibly due to a combination of lumbar spinal stenosis and Parkinson's Disease Weakness: -Patient with recent and frequent history of falls with recent hospitalization in May; during this admission initial recommendation was for SNF at [facility], however patient declined in favor of returning home MRI from 05/30/2020 it is as follows IMPRESSION: 1. No significant change in appearance of the lumbar spine since MRI of January 21, 2020. Status post L2-L4 laminectomy. No central canal stenosis. 2. Moderate to severe multilevel neural foraminal stenosis, most pronounced at the left L3-L4 and bilateral L5-S1 neural foramen -PT/OT evaluations ordered anticipate him needing rehab, he is currently living alone, cannot live with family due to ongoing issues, has demonstrated that he falls a lot at home, concerned about safety -consult Dr. Agarwal, he can offer surgery but patient is very complicated medically, high risk of complications d/w the patient, he wants to proceed with surgery, he understands the risks, states that he has no quality of life with the pain and instability would rather take risk of surgery than live like this spoke with Dr. Agarwal, plan for surgery next week holding Coumadin in anticipation, INR is 1.1 today, continue Lovenox for full anticoagulation 3-26 cont PT / OT (8) Chronic kidney disease, stage 3a: Cr is stable at this time, making urine electrolytes stable (9) PAF (paroxysmal atrial fibrillation): Paroxysmal atrial fibrillation: -History of paroxysmal atrial fibrillation -EKG in ED demonstrating concerns for return of atrial fibrillation without RVR -not on any rate controlling medication Continue home warfarin dosing-> INR is 1.2, continue Lovenox 3-22 holding anticoag for surgery 3-25 anticoag resumed (10) HLD (hyperlipidemia): (11) Diabetes: Diabetes: -Known diabetic, last A1c 7.3 on 05/29/2020 -Home regimen including Trulicity, glargine, aspart -Temporarily will hold Trulicity -BSG's ACHS, with SSI and glargine, monitor for hypo and hyperglycemic episodes (12) Parkinsonism: Parkinsonism: -Follows with neurology (Dr. 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 Buckley in early June, plan to start Rituxan soon as outpatient, he has had his 2nd COVID vaccine shot on hold for now while we work on correcting his lumbar spine issues (15) Severe protein-calorie malnutrition: encourage PO intake, supplements (16) Constipated: will order the Miralax 34gm q6 PRN (he takes this dose at home) still not effective, will give Dulcolax suppository today (17) Tinea cruris: Terbinafine cream BID likely due to ongoing Prednisone use rash is better, would continue for two weeks likely to recur as long as he is on Prednisone Admission and Anticipated Discharge Date Admission Date: July 10, 2020 Subjective Patient NPO due to coughing with meals Failed VFSS -- aspirating every consistency of liquid and food Patient reports back and leg pain improving Mentation improved off opiates now Drain was removed today Patient complaining of dehydration due to inability to take PO Review of Systems Constitutional: no fever, no chills, no fatigue, no weakness, no anorexia, no weight loss and no weight gain Ear, Nose, Mouth, Throat: + dry mouth; no nasal congestion, no sore throat and no dysphagia Respiratory: + cough; no dyspnea Cardiovascular: no chest pain, no dyspnea on exertion, no orthopnea and no palpitations Gastrointestinal: no abdominal pain, no nausea, no vomiting, no hematemesis, no dysphagia, no constipation, no diarrhea/loose stools, no blood in stools and no melena Genitourinary: no dysuria and no hematuria Musculoskeletal: no back pain, no joint pain, no myalgia and no muscle weakness Integumentary: no rash, no lesions, no skin ulcer, no erythema, no dry skin and no pruritus Neurologic: no falls, no localized weakness, no generalized weakness, no numbness, no paresthesia, no tremor(s) and no headache(s) Psychiatric: no depression, no suicidal ideation, no homicidal ideation and no anxiety Endocrine: no cold intolerance and no heat intolerance Hematologic / Lymphatic: no easy bleeding and no easy bruising Physical Exam Constitutional: well developed and well nourished; no acute distress Eyes: PERRL, conjunctivae normal, anicteric sclerae ENMT: Mouth: oral mucous membranes not dry Respiratory: normal respiratory effort; no respiratory distress and no labored breathing Auscultation: lungs clear to auscultation bilaterally; no crackles, no rales, no rhonchi and no wheezes Cardiovascular: Rate/Rhythm: regular rate and regular rhythm Heart Sounds: no murmur and no cardiac rub Vessels: normal peripheral pulses and radial pulses present; no JVD Extremities: + edema (right leg 1+ pitting edema) Gastrointestinal (Abdomen): Inspection/Auscultation: abdomen normal to inspection and normal bowel sounds; abdomen not distended Percussion/Palpation: abdomen soft; abdomen nontender, no guarding, abdomen not rigid and no hepatosplenomegaly Musculoskeletal: Head/Neck/Chest: normocephalic and head atraumatic Spine: lumbar spine normal to inspection (drain pulled today); no cervical spinal tenderness, no cervical muscular tenderness, no thoracic spinal tenderness and no lumbar spinal tenderness Skin: no rashes, warm and dry Neurologic: CN's II-XI intact bilaterally and moves all extremities Motor/Sensory: no tremor and no sensory deficit Psychiatric: Orientation: alert, oriented to person, oriented to place and oriented to time Apperance: appropriately groomed; not disheveled Affect: euthymic affect; no anxious affect and no tearful affect Results & Data Results & Data ([facility]) Vital Signs (Past 12 Hours) Vital Signs Temp Pulse Resp BP Pulse Ox 07/23/20 15:30 37.3 C 66 16 126/73 93 07/23/20 07:33 36.9 C 67 16 123/65 98 PG Care Time/CCT Total # of Minutes Spent Total Time Spent with Patient: Total time spent is greater than 50% in coordination of care (as documented) at patient's floor/unit and/or counseling patient: Coding Level of Care Code 61085 Subseq Hosp Care Lvl 2 Diagnoses Dysphagia R13.10 Dysphagia type: unspecified Neurogenic claudication due to lumbar spinal stenosis M48.062 History of aortic valve replacement Z95.2 Encephalopathy G93.40 Nerve root compression G54.9 Anemia D64.9 Anemia type: unspecified type Weakness R53.1 Chronic kidney disease, stage 3a N18.3 PAF (paroxysmal atrial fibrillation) I48.0 HLD (hyperlipidemia) E78.2 Hyperlipidemia type: mixed hyperlipidemia Diabetes E11.42; Z79.4 Diabetes mellitus type: type 2 Diabetes mellitus detention insulin use: with fretted instruments inspector use Diabetes mellitus complication status: with neurologic complications Diabetes mellitus complication detail: with polyneuropathy Parkinsonism G20 Fall [id number].XXXA Interstitial lung disease J84.9 Severe protein-calorie malnutrition E43 Constipated K59.00 Constipation type: unspecified constipation type Tinea cruris B35.6 (1) Dysphagia Dysphagia type: unspecified Qualified Code(s): R13.10 - Dysphagia, unspecified (2) Anemia Anemia type: unspecified type Qualified Code(s): D64.9 - Anemia, unspecified (3) HLD (hyperlipidemia) Hyperlipidemia type: mixed hyperlipidemia Qualified Code(s): E78.2 - Mixed hyperlipidemia (4) Diabetes Diabetes mellitus type: type 2 Diabetes mellitus fretted instruments inspector insulin use: with fretted instruments inspector use Diabetes mellitus complication status: with neurologic complications Diabetes mellitus complication detail: with polyneuropathy Qualified Code(s): E11.42 - Type 2 diabetes mellitus with diabetic polyneuropathy; Z79.4 - senior living (current) use of insulin (5) Constipated Constipation type: unspecified constipation type Qualified Code(s): K59.00 - Constipation, unspecified
[2020-07-23] MEDS: ALBUT/IPRATROP 3MG/0.5MG NEB 3 ML VIAL INH PRN ×2 (16:34→21:52)
[2020-07-23] MEDS ORDERED: Nursing to Pharmacy Communication SCH (19:15)
[2020-07-23] MEDS: allopurinoL 100 MG TAB PO SCH (19:53)
[2020-07-23] MEDS: ATORVASTATIN 40 MG TAB PO SCH (19:53)
[2020-07-24] MEDS: INSULIN ASPART 100 UNITS/ML 3 ML PEN SC SCH ×4 (00:05→18:04)
[2020-07-24] MEDS: SODIUM CHLORIDE 0.9% 1000ML 1,000 ML IV SCH ×2 (02:56→16:14)
[2020-07-24 05:50] LABS: Hematocrit (blood only) 31.1 % (42-52); Hemoglobin 9.9 g/dL (14.0-18.0); Mean Corpuscular Hemoglobin 27.4 pg (25-34); Mean Corpuscular Hgb Conc 31.8 g/dL (32-36); Mean Corpuscular Volume 86.1 fL (80-100); Mean Platelet Volume 9.7 fL (7.4-10.4); Platelet Count 133 K/uL (130-400); RDW Coefficient of Variation 15.8 % (11.5-14.5); RDW Standard Deviation 50.4 fL (36.4-46.3); Red Blood Count 3.61 M/uL (4.7-6.1); White Blood Count 4.48 K/uL (4.8-10.8)
[2020-07-24 06:13] LABS: Partial Thromboplastin Ratio 1.2; Partial Thromboplastin Time 31.9 Seconds (21.0-31.0)
[2020-07-24 06:23] LABS: BUN Creatinine Ratio 16.5 (10-20); Calcium 8.4 mg/dl (8.5-10.1); Creatinine Clr Calc Pharmacy 72.8 ml/min; Est GFR (Non-African American) 70.7; Magnesium 1.9 mg/dl (1.8-2.4); Phosphorus 2.4 mg/dl (2.5-4.9); Potassium 3.7 mmol/L (3.5-5.1)
[2020-07-24] MEDS: ALBUT/IPRATROP 3MG/0.5MG NEB 3 ML VIAL INH PRN ×3 (09:13→18:15)
--- NOTE | 2020-07-24 10:35 | Orthopedic Progress Note ---
Date of Service July 24, 2020 Assessment & Plan (1) Neurogenic claudication due to lumbar spinal stenosis: Admission and Anticipated Discharge Date Admission Date: July 10, 2020 At this time the patient's still struggling with some encephalopathy. His swallowing exam did show some deficits. I am going to order chest x-ray today. Hopefully we can initiate physical therapy past pending his alertness. Subjective Patient is somewhat lethargic during our discussion today. He is complaining of back and some right leg pain. Physical Exam Physical Exam: On exam he is able to move his toes up and down with good strength. I did not have him get out of bed. Results & Data ([facility]) Vital Signs (Past 12 Hours) Vital Signs Temp Pulse Resp BP Pulse Ox 07/24/20 09:13 93 H 20 91 07/24/20 07:59 36.8 C 82 16 165/55 H
[2020-07-24] MEDS: levETIRAcetam 500 MG TAB PO SCH (11:40)
[2020-07-24] MEDS: INSULIN GLARGINE SOLOSTAR 100 UNITS/ML 3 ML PEN SC SCH (11:42)
[2020-07-24] MEDS: TERBINAFINE CR 30 GM TUBE EXT SCH ×2 (11:42→21:49)
[2020-07-24] MEDS: GABAPENTIN 600 MG TAB PO SCH ×3 (11:43→21:53)
[2020-07-24] MEDS: predniSONE 10 MG TABLET PO SCH (11:44)
[2020-07-24] MEDS: FINASTERIDE 5 MG TAB PO SCH (11:44)
[2020-07-24] MEDS: CARBIDOPA/LEVODOPA 25/100MG TAB PO SCH ×2 (11:44→21:46)
[2020-07-24] MEDS: TOPIRAMATE 100 MG TAB PO SCH ×2 (11:44→21:53)
--- NOTE | 2020-07-24 12:08 | XRay Report ---
XR chest 2V PA/lateral HISTORY: Shortness of breath. postop COMPARISON: Chest 07/19/2020. FINDINGS: Low lung volumes. The heart remains mildly enlarged. There are poststernotomy changes and a cardiac valve prosthesis. There is mild central pulmonary basilar congestion without overt edema. Sm all bilateral pleural effusions. Hazy left basilar density. There are suture material within the left lung base. IMPRESSION: 1. Mild central pulmonary vascular congestion without overt edema. 2. Small bilateral pleural fusions. 3. Mild cardiomegaly, unchanged. 4. Hazy left basilar density. This may represent atelectasis or pneumonia. ACT 112: Negative or not required by law. Electronically signed by: Jc Che M.D. 07/24/2020 12:07 PM
[2020-07-24] MEDS: ENOXAPARIN 100 MG/1ML SYR SQ SCH ×2 (12:24→21:31)
[2020-07-24] MEDS ORDERED: PIPERACILL/TAZOBAC CONSULT ACTIVE PRN (12:33)
[2020-07-24] MEDS: ACETAMINOPHEN 65 ML IV PRN (12:40)
[2020-07-24] MEDS ORDERED: PIPERACILLIN/TAZOBACTAM 4.5 GM in DEXTROSE 5% 100 ML IV ONE (12:45)
[2020-07-24 14:33] LABS: Base Excess ABG -3.5 mEq/L (-9-1.8); HCO3 ABG 21 mmol/L (19-24); Oxygen Saturation ABG 96.7 % (90-95); PCO2 ABG 33 mmHg (35-46); PO2 ABG 83 mmHg (80-95); pH ABG 7.41 (7.35-7.45)
[2020-07-24 14:41] LABS: Allen Test Pos (Pos)
--- NOTE | 2020-07-24 16:29 | Hospitalist Progress Note ---
Date of Service July 24, 2020 Assessment & Plan (1) Aspiration pneumonia: Patient with complicated medical course, discussed with neurosurgery Dr. Agarwal. Noted abnormality on speech evaluation , see dysphagia and speech therapy evaluation. Chest x-ray was performed showing concerns for left lower lobe pneumonia Ongoing evaluation, ABG performed with no significant changes. To the patient's overall medical condition, dysphagia, aspiration transfer to PCU Start patient on Zosyn Obtain cultures Continue current oxygen Discussed care with patient's son, currently is a full code Plan on evaluation by palliative therap (2) Dysphagia: nurse noted coughing with meal Keep NPO until speech can see some coughing, awaiting formal speech eval 07-23 Failed VFSS with all consistencies placed palliative consult for help with goals of care and decision about PEG or no PEG 327 stopped p.o. medications. On discussion with family will start NG tube (3) Neurogenic claudication due to lumbar spinal stenosis: severe disease at the L5 level, left leg radiculopathy good response to Percocet PRN increased gabapentin to 600mg TID for better control of neuropathic pain, working well, no increased lethargy plan for OR next week, Dr. Agarwal following, he will determine timing on Lovenox now for full anticoagulation that can be held prior to surgery 07-19 OR tomorrow holding lovenox, bridge with heparin stop heparin 4 hours before surgery 07-23 drain with minimal serosanguineous output -- removed today (4) History of aortic valve replacement: mchanical valve remains on coumadin hold Coumadin Lovenox 07-19 holding lovenox, bridge with heparin 07-20 anticoagulants on hold 07-21 started low dose heparin drip with bolus discussed with Dr. Agarwal and he approves 07-22 advance to lovenox BID 07-23 continue lovenox BID, will need to resume coumadin as soon as able/if no PEG in the plans (5) Encephalopathy: - drowsy, arouses to voice HCT no acute findings likely related to anesthetics and pain meds monitoring closely for improvement 07-22 improved with narcan and cessation of narcotics complaining of pain and was on percocet prior to arrival, so will likely resume tomorrow 07-23 pain improved, not requiring pain meds mentation at baseline Pain is controlled, started IV Tylenol Concern with changes likely secondary to pulmonary concerns as noted above (6) Nerve root compression: see above pain control with Percocet, gabapentin 600mg TID percocet DC'd due to mental status changes (7) Anemia: 3-23 chronic and blood loss 850ml in OR monitor CBC closely (8) Weakness: Increasing weakness and falls possibly due to a combination of lumbar spinal stenosis and Parkinson's Disease Weakness: -Patient with recent and frequent history of falls with recent hospitalization in May; during this admission initial recommendation was for SNF at [facility], however patient declined in favor of returning home MRI from 05/30/2020 it is as follows IMPRESSION: 1. No significant change in appearance of the lumbar spine since MRI of January 21, 2020. Status post L2-L4 laminectomy. No central canal stenosis. 2. Moderate to severe multilevel neural foraminal stenosis, most pronounced at the left L3-L4 and bilateral L5-S1 neural foramen -PT/OT evaluations ordered anticipate him needing rehab, he is currently living alone, cannot live with family due to ongoing issues, has demonstrated that he falls a lot at home, concerned about safety -consult Dr. Agarwal, he can offer surgery but patient is very complicated medically, high risk of complications d/w the patient, he wants to proceed with surgery, he understands the risks, states that he has no quality of life with the pain and instability would rather take risk of surgery than live like this spoke with Dr. Agarwal, plan for surgery next week holding Coumadin in anticipation, INR is 1.1 today, continue Lovenox for full anticoagulation 3-26 cont PT / OT (9) Chronic kidney disease, stage 3a: Cr is stable at this time, making urine electrolytes stable (10) PAF (paroxysmal atrial fibrillation): Paroxysmal atrial fibrillation: -History of paroxysmal atrial fibrillation -EKG in ED demonstrating concerns for return of atrial fibrillation without RVR -not on any rate controlling medication Continue home warfarin dosing-> INR is 1.2, continue Lovenox 3-22 holding anticoag for surgery 3-25 anticoag resumed (11) HLD (hyperlipidemia): (12) Diabetes: Diabetes: -Known diabetic, last A1c 7.3 on 05/29/2020 -Home regimen including Trulicity, glargine, aspart -Temporarily will hold Trulicity -BSG's ACHS, with SSI and glargine, monitor for hypo and hyperglycemic episodes (13) Parkinsonism: Parkinsonism: -Follows with neurology (Dr. 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 Buckley in early June, plan to start Rituxan soon as outpatient, he has had his 2nd COVID vaccine shot on hold for now while we work on correcting his lumbar spine issues (16) Severe protein-calorie malnutrition: encourage PO intake, supplements (17) Constipated: will order the Miralax 34gm q6 PRN (he takes this dose at home) still not effective, will give Dulcolax suppository today (18) Tinea cruris: Terbinafine cream BID likely due to ongoing Prednisone use rash is better, would continue for two weeks likely to recur as long as he is on Prednisone Admission and Anticipated Discharge Date Admission Date: July 10, 2020 Subjective Difficult to understand patient. Nursing notes the had general decline in the patient's condition overnight. Described more difficulty with cough and shortness of breath. Speech evaluation and noted to have significant aspiration Difficult to understand the patient but describes no change in his pain. No new chest pain or palpitations. Later in the day the patient described having more difficulty breathing, difficulty with deep inspiration. Review of Systems Review of Systems: All systems reviewed & are unremarkable except as noted in Subjective Physical Exam Physical Exam: Constitutional: WD/WN, vitals as above , AAOx2 Respiratory: rhonchi and wheeze, no CV: RRR, no murmur, edema Abdomen: normal bowel sounds, soft, nontender, no hepatosplenomegaly on return exam pt with increase in distress mild tachypnea Results & Data Results & Data ([facility]) Vital Signs (Past 12 Hours) Vital Signs Temp Pulse Resp BP Pulse Ox 07/24/20 16:00 36.9 C 88 16 129/64 96 07/24/20 14:15 90 18 95 07/24/20 09:13 93 H 20 91 07/24/20 07:59 36.8 C 82 16 165/55 H Laboratory Results Laboratory Results - last 24 hr 07/23/20 07/23/20 07/24/20 18:04 23:57 05:35 WBC RBC Hgb Hct MCV MCH MCHC RDW Std Deviation RDW Coeff of Lianne Plt Count MPV APTT 31.9 H PTT Ratio 1.2 ABG pH ABG pCO2 ABG pO2 ABG HCO3 ABG O2 Saturation ABG Base Excess Radhames Test Barometric Pressure Oxygen Given Sodium Potassium Chloride Carbon Dioxide Anion Gap BUN Creatinine Est Cr Clr Drug Dosing Est GFR ( Amer) Est GFR (Non-Af Amer) BUN/Creatinine Ratio Glucose POC Glucose 227 H 157 H Calcium Phosphorus Magnesium Nasal Screen MRSA (PCR) 07/24/20 07/24/20 07/24/20 05:35 05:35 05:57 WBC 4.48 L RBC 3.61 L Hgb 9.9 L Hct 31.1 L MCV 86.1 MCH 27.4 MCHC 31.8 L RDW Std Deviation 50.4 H RDW Coeff of Lianne 15.8 H Plt Count 133 MPV 9.7 APTT PTT Ratio ABG pH ABG pCO2 ABG pO2 ABG HCO3 ABG O2 Saturation ABG Base Excess Radhames Test Barometric Pressure Oxygen Given Sodium 143 Potassium 3.7 Chloride 115 H Carbon Dioxide 23 Anion Gap 5.0 BUN 17 Creatinine 1.03 Est Cr Clr Drug Dosing 72.8 Est GFR ( Amer) 82.0 Est GFR (Non-Af Amer) 70.7 BUN/Creatinine Ratio 16.5 Glucose 137 H POC Glucose 152 H Calcium 8.4 L Phosphorus 2.4 L Magnesium 1.9 Nasal Screen MRSA (PCR) 07/24/20 07/24/20 07/24/20 12:13 14:10 Unknown WBC RBC Hgb Hct MCV MCH MCHC RDW Std Deviation RDW Coeff of Lianne Plt Count MPV APTT PTT Ratio ABG pH 7.41 ABG pCO2 33 L ABG pO2 83 ABG HCO3 21 ABG O2 Saturation 96.7 H ABG Base Excess -3.5 Radhames Test Pos Barometric Pressure 733.4 Oxygen Given 2 Sodium Potassium Chloride Carbon Dioxide Anion Gap BUN Creatinine Est Cr Clr Drug Dosing Est GFR ( Amer) Est GFR (Non-Af Amer) BUN/Creatinine Ratio Glucose POC Glucose 187 H Calcium Phosphorus Magnesium Nasal Screen MRSA (PCR) Negative PG Care Time/CCT Total # of Minutes Spent Total Time Spent with Patient: Total time spent is greater than 50% in coordination of care (as documented) at patient's floor/unit and/or counseling patient: Coding Level of Care Code 83510 Subseq Hosp Care Lvl 3 Diagnoses Aspiration pneumonia J69.0 Dysphagia R13.10 Dysphagia type: unspecified Neurogenic claudication due to lumbar spinal stenosis M48.062 History of aortic valve replacement Z95.2 Encephalopathy G93.40 Nerve root compression G54.9 Anemia D64.9 Anemia type: unspecified type Weakness R53.1 Chronic kidney disease, stage 3a N18.3 PAF (paroxysmal atrial fibrillation) I48.0 HLD (hyperlipidemia) E78.2 Hyperlipidemia type: mixed hyperlipidemia Diabetes E11.42; Z79.4 Diabetes mellitus type: type 2 Diabetes mellitus detention insulin use: with detention use Diabetes mellitus complication status: with neurologic complications Diabetes mellitus complication detail: with polyneuropathy Parkinsonism G20 Fall [id number] Interstitial lung disease J84.9 Severe protein-calorie malnutrition E43 Constipated K59.00 Constipation type: unspecified constipation type Tinea cruris B35.6 (1) Dysphagia Dysphagia type: unspecified Qualified Code(s): R13.10 - Dysphagia, unspecified (2) Anemia Anemia type: unspecified type Qualified Code(s): D64.9 - Anemia, unspecified (3) HLD (hyperlipidemia) Hyperlipidemia type: mixed hyperlipidemia Qualified Code(s): E78.2 - Mixed hyperlipidemia (4) Diabetes Diabetes mellitus type: type 2 Diabetes mellitus personal lines advisor insulin use: with detention use Diabetes mellitus complication status: with neurologic complications Diabetes mellitus complication detail: with polyneuropathy Qualified Code(s): E11.42 - Type 2 diabetes mellitus with diabetic polyneuropathy; Z79.4 - intermediate (current) use of insulin (5) Constipated Constipation type: unspecified constipation type Qualified Code(s): K59.00 - Constipation, unspecified
[2020-07-24] MEDS: PIPERACILLIN/TAZOBACTAM 3.375 GM in DEXTROSE 5% 100 ML IV SCH (21:30)
[2020-07-24] MEDS: levETIRAcetam 1,000 MG in 0.9 % SODIUM CHLORIDE 100 ML IV SCH (21:46)
[2020-07-24] MEDS ORDERED: SODIUM CHLORIDE 0.9% 1000ML 500 ML IV ONE ×2 (22:24→23:27)
[2020-07-25] MEDS: INSULIN ASPART 100 UNITS/ML 3 ML PEN SC SCH ×4 (00:03→18:15)
[2020-07-25] MEDS: POTASSIUM CHLORIDE / WTR 10 MEQ/100 ML PLCT IV SCH ×4 (00:05→03:45)
[2020-07-25] MEDS: MAGNESIUM SULFATE / D5W 1 GM/100 ML BAG IV SCH ×2 (00:05→01:25)
[2020-07-25] MEDS: INSULIN GLARGINE SOLOSTAR 100 UNITS/ML 3 ML PEN SC SCH ×3 (02:14→20:14)
[2020-07-25] MEDS ORDERED: METOPROLOL TARTRATE 1 MG/ML VIAL IV PRN (02:22)
[2020-07-25] MEDS ORDERED: METOPROLOL TARTRATE 1 MG/ML VIAL IV ONE (02:29)
--- NOTE | 2020-07-25 02:51 | Communication Note ---
Date of Service: July 25, 2020 Was notified around 10:24PM on 07/24/20 that patient had converted into Afib RVR in the 140's. Per review of patient's history was notable for history of PAfib not on rate controlling agents. Patient already on therapeutic Eliquis. Patient evaluated at the bedside who noted while he "didn't feel too hot" was denying signs of chest pain, chest pressure, SOB, dizziness. PE: Heart: irregularly irregular, no murmur, click noted from mechanical aortic valve. Lungs: Rhonchi and wheezes throughout, worse in the upper lobes, without crackles. Plan: -Initially with 500mL bolus NSS followed by second 500mL for total 1L NSS bolus with minimal improvement of HR from 140's to 120-130's. -Repleted with 40meq KCl and 2g Mg. -Pushed at bedside 2.5mg Lopressor to good effect, reducing HR to high 90's-low 100's. 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
[2020-07-25] MEDS: SODIUM CHLORIDE 0.9% 1000ML 1,000 ML IV SCH ×3 (05:50→18:17)
[2020-07-25] MEDS: PIPERACILLIN/TAZOBACTAM 3.375 GM in DEXTROSE 5% 100 ML IV SCH ×2 (05:50→12:00)
[2020-07-25 06:32] LABS: Basophils # (auto) 0.01 K/uL (0-0.2); Basophils % (auto) 0.2 %; Eosinophils # (auto) 0.08 K/uL (0-0.5); Eosinophils % (auto) 1.8 %; Hematocrit (blood only) 30.5 % (42-52); Hemoglobin 9.9 g/dL (14.0-18.0); Immature Granulocytes # (auto) 0.02 K/uL (0.00-0.02); Immature Granulocytes % (auto) 0.5 %; Lymphocytes # (auto) 0.63 K/uL (1.2-3.4); Lymphocytes % (auto) 14.5 %; Mean Corpuscular Hemoglobin 27.7 pg (25-34); Mean Corpuscular Hgb Conc 32.5 g/dL (32-36); Mean Corpuscular Volume 85.4 fL (80-100); Mean Platelet Volume 9.4 fL (7.4-10.4); Monocytes # (auto) 0.27 K/uL (0.11-0.59); Monocytes % (auto) 6.2 %; Neutrophils # (auto) 3.32 K/uL (1.4-6.5); Neutrophils % (auto) 76.8 %; Platelet Count 151 K/uL (130-400); RDW Standard Deviation 50.7 fL (36.4-46.3); Red Blood Count 3.57 M/uL (4.7-6.1); White Blood Count 4.33 K/uL (4.8-10.8)
[2020-07-25 06:39] LABS: Partial Thromboplastin Ratio 1.5; Partial Thromboplastin Time 39.6 Seconds (21.0-31.0)
[2020-07-25 06:57] LABS: Calcium 8.2 mg/dl (8.5-10.1); Creatinine Clr Calc Pharmacy 71.4 ml/min; Est GFR (African American) 80.1; Est GFR (Non-African American) 69.1; Magnesium 2.1 mg/dl (1.8-2.4)
[2020-07-25] MEDS: levETIRAcetam 1,000 MG in 0.9 % SODIUM CHLORIDE 100 ML IV SCH ×2 (08:32→20:12)
[2020-07-25] MEDS: CARBIDOPA/LEVODOPA 25/100MG TAB PO SCH ×4 (08:33→20:12)
[2020-07-25] MEDS: ENOXAPARIN 100 MG/1ML SYR SQ SCH ×2 (08:33→20:13)
[2020-07-25] MEDS: TERBINAFINE CR 30 GM TUBE EXT SCH ×2 (08:33→20:14)
[2020-07-25] MEDS: GABAPENTIN 600 MG TAB PO SCH ×4 (08:33→20:13)
[2020-07-25] MEDS: predniSONE 10 MG TABLET PO SCH (08:33)
[2020-07-25] MEDS: TOPIRAMATE 100 MG TAB PO SCH ×2 (08:34→20:13)
[2020-07-25] MEDS: allopurinoL 100 MG TAB PO SCH (08:34)
--- NOTE | 2020-07-25 15:08 | Electrocardiogram Report ---
Test Reason : Blood Pressure : / mmHG Vent. Rate : 120 BPM Atrial Rate : 340 BPM P-R Int : 000 ms QRS Dur : 086 ms QT Int : 340 ms P-R-T Axes : 000 023 139 degrees QTc Int : 480 ms Atrial fibrillation with rapid ventricular response Nonspecific ST and T wave abnormality Abnormal ECG When compared with ECG of 10-JUL-2020 21:11, Atrial fibrillation has replaced Sinus rhythm Vent. rate has increased BY 52 BPM Non-specific change in ST segment in Inferior leads ST more depressed Anterior leads Confirmed by Josh Vora ([id number]) on 07/25/2020 3:07:45 PM Referred By: REFERRED SELF Confirmed By:Josh Vora
[2020-07-25] MEDS ORDERED: PEPTAMEN 1.5 CAL 1,000 ML BAG PO SCH (18:00)
--- NOTE | 2020-07-25 18:29 | XRay Report ---
KUB HISTORY: Status post placement of an enteric tube confirm NG placement prior to starting tube feeds COMPARISON: CT abdomen and pelvis 07/10/2020 FINDINGS: Lower abdomen is excluded from the [id number]. A gastric lap band is present. Enteric tu be is also present with distal tip appearing to terminate over the abdominal left upper quadrant and the expected location of the proximal stomach. Bowel gas pattern is nonobstructive. Cardiomegaly. Par tially imaged spinal fusion hardware. Prior median sternotomy. IMPRESSION: Distal tip of enteric tube projects over the proximal stomach. ACT 112: Negative or not required by law. The above report was generated using voice recognition software. It may contain grammatical, syntax o r spelling errors. Electronically signed by: Terry Orozco M.D. 07/25/2020 6:28 PM
--- NOTE | 2020-07-25 19:44 | Hospitalist Progress Note ---
Date of Service July 25, 2020 Assessment & Plan (1) Aspiration pneumonia: Having a lot of diarrhea, change Zosyn to Unasyn, as I doubt we need pseudomonal coverage. Continue antibiotic coverage for this, ongoing speech therapy eval and treat (2) Dysphagia: NG started yesterday and used for meds, will start tube feeding today. Little bit difficult to truly discern, but it seems his mental status may have improved a little bit from yesterday to today. Palliative has been consulted, certainly their input will be helpful, also will appreciate ongoing speech eval and treat. (3) Neurogenic claudication due to lumbar spinal stenosis: severe disease at the L5 level, left leg radiculopathy good response to Percocet PRN increased gabapentin to 600mg TID for better control of neuropathic pain, and he does not seem to have a whole lot of significant pain. PT/OT eval and treat (4) History of aortic valve replacement: Mechanical valveon Lovenox while Coumadin is on hold. Once it is clear he will require no further procedures, can resume Coumadin. (5) Encephalopathy: 3-24 drowsy, arouses to voice HCT no acute findings likely related to anesthetics and pain meds monitoring closely for improvement 3-25 improved with narcan and cessation of narcotics complaining of pain and was on percocet prior to arrival, so will likely resume tomorrow 3-26 pain improved, not requiring pain meds mentation at baseline Pain is controlled, started IV Tylenol Concern with changes likely secondary to pulmonary concerns as noted above Today seems reasonably lucid, but we will need to continue to follow (6) Nerve root compression: see above pain control with Percocet, gabapentin 600mg TID percocet DC'd due to mental status changes (7) Anemia: Follow CBC periodically (8) Weakness: Increasing weakness and falls possibly due to a combination of lumbar spinal stenosis and Parkinson's Disease Weakness: -Patient with recent and frequent history of falls with recent hospitalization in May; during this admission initial recommendation was for SNF at [facility], however patient declined in favor of returning home MRI from 05/30/2020 it is as follows IMPRESSION: 1. No significant change in appearance of the lumbar spine since MRI of January 21, 2020. Status post L2-L4 laminectomy. No central canal stenosis. 2. Moderate to severe multilevel neural foraminal stenosis, most pronounced at the left L3-L4 and bilateral L5-S1 neural foramen -PT/OT evaluation and treat ongoing anticipate him needing rehab, he is currently living alone, cannot live with family due to ongoing issues, has demonstrated that he falls a lot at home, concerned about safety (9) Chronic kidney disease, stage 3a: Cr is stable at this time, making urine electrolytes stable (10) PAF (paroxysmal atrial fibrillation): PAF, rates good, anticoagulated (11) HLD (hyperlipidemia): (12) Diabetes: Diabetes: -Known diabetic, last A1c 7.3 on 05/29/2020 -sugars too high - add novolog (13) Parkinsonism: Parkinsonism: -Follows with neurology (Dr. Sheikh) last seen 07/02 was started on Sinemet 0.5 tab 3 times daily -Continue Sinemet (14) Fall: no injury seen on CT head or cervical spine (15) Interstitial lung disease: Supportive care, supplemental oxygen, prednisone for nowis going to be starting on Rituxan soon he saw Dr. Buckley in early June, plan to start Rituxan soon as outpatient, he has had his 2nd COVID vaccine shot on hold for now while we work on correcting his lumbar spine issues (16) Severe protein-calorie malnutrition: NG tubetitrate tube feeds (17) Constipated: Follow (18) Tinea cruris: Terbinafine cream BID for about 2 weeks contingent on clinical response (19) DVT prophylaxis: Anticoagulated with Lovenox (20) Discharge planning issues: PT/OT eval and treat, dysphagia will need to be sorted out prior to any discharge planning though. Admission and Anticipated Discharge Date Admission Date: July 10, 2020 Subjective Notes that he is worried about not having had any nutrition for a while. Has a wet thick cough, does not seem to have any shortness of breath. His leg is weak. HPI and review of systems a little bit difficult to obtain. Nursing notes no new issues. Review of Systems Review of Systems: All systems reviewed & are unremarkable except as noted in HPI & below Physical Exam Physical Exam: General he is awake and alert questionably oriented, no distress. HEENT normocephalic atraumatic mucous membranes are moist. Breathing unlabored but coarse rhonchi throughout no wheezes no accessory muscle use good effort. Abdomen is soft nondistended nontender no masses organomegaly extremities show no cyanosis clubbing or edema, he does not show any focal motor weakness I can appreciate. Results & Data Results & Data ([facility]) Vital Signs (Past 12 Hours) Vital Signs Temp Pulse Resp BP Pulse Ox 07/25/20 15:05 98.4 F 88 20 145/80 H 97 07/25/20 11:06 97.9 F 93 H 18 135/84 98 07/25/20 08:06 98.2 F 90 19 131/78 98 PG Care Time/CCT Total # of Minutes Spent Total Time Spent with Patient: Total time spent is greater than 50% in coordination of care (as documented) at patient's floor/unit and/or counseling patient: Coding Level of Care Code 76427 Subseq Hosp Care Lvl 3 Diagnoses Aspiration pneumonia J69.0 Dysphagia R13.10 Dysphagia type: unspecified Neurogenic claudication due to lumbar spinal stenosis M48.062 History of aortic valve replacement Z95.2 Encephalopathy G93.40 Nerve root compression G54.9 Anemia D64.9 Anemia type: unspecified type Weakness R53.1 Chronic kidney disease, stage 3a N18.3 PAF (paroxysmal atrial fibrillation) I48.0 HLD (hyperlipidemia) E78.2 Hyperlipidemia type: mixed hyperlipidemia Diabetes E11.42; Z79.4 Diabetes mellitus type: type 2 Diabetes mellitus mcfp insulin use: with mcfp use Diabetes mellitus complication status: with neurologic complications Diabetes mellitus complication detail: with polyneuropathy Parkinsonism G20 Fall [id number].XXXA Interstitial lung disease J84.9 Severe protein-calorie malnutrition E43 Constipated K59.00 Constipation type: unspecified constipation type Tinea cruris B35.6 DVT prophylaxis Z29.9 Discharge planning issues Z02.9 (1) Dysphagia Dysphagia type: unspecified Qualified Code(s): R13.10 - Dysphagia, unspecified (2) Anemia Anemia type: unspecified type Qualified Code(s): D64.9 - Anemia, unspecified (3) HLD (hyperlipidemia) Hyperlipidemia type: mixed hyperlipidemia Qualified Code(s): E78.2 - Mixed hyperlipidemia (4) Diabetes Diabetes mellitus type: type 2 Diabetes mellitus mcfp insulin use: with director long term care use Diabetes mellitus complication status: with neurologic complications Diabetes mellitus complication detail: with polyneuropathy Qualified Code(s): E11.42 - Type 2 diabetes mellitus with diabetic polyneuropathy; 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
[2020-07-25] MEDS: AMPICILLIN/SULBACTAM SOD 1,500 MG in 0.9 % SODIUM CHLORIDE 100 ML IV SCH (20:01)
[2020-07-25] MEDS ORDERED: INSULIN ASPART 100 UNITS/ML 3 ML PEN SC SCH (21:00)
[2020-07-26] MEDS ORDERED: INSULIN ASPART 100 UNITS/ML 3 ML PEN SC SCH
[2020-07-26] MEDS: AMPICILLIN/SULBACTAM SOD 1,500 MG in 0.9 % SODIUM CHLORIDE 100 ML IV SCH ×4 (00:59→17:17)
[2020-07-26] MEDS: INSULIN ASPART 100 UNITS/ML 3 ML PEN SC SCH ×4 (01:03→17:18)
[2020-07-26] MEDS: SODIUM CHLORIDE 0.9% 1000ML 1,000 ML IV SCH ×3 (06:15→23:17)
[2020-07-26 06:23] LABS: BUN Creatinine Ratio 18.3 (10-20); Creatinine Clr Calc Pharmacy 90.6 ml/min; Est GFR (African American) 97.4; Magnesium 1.8 mg/dl (1.8-2.4); Phosphorus 1.9 mg/dl (2.5-4.9); Potassium 3.3 mmol/L (3.5-5.1)
[2020-07-26 06:24] LABS: Partial Thromboplastin Ratio 1.4; Partial Thromboplastin Time 36.7 Seconds (21.0-31.0)
--- NOTE | 2020-07-26 07:12 | Hospitalist Progress Note ---
Date of Service July 26, 2020 Assessment & Plan (1) Aspiration pneumonia: 75yo M with ILD (baseline 2L NC at nighttime), parkinson's, CKD3, IDDM2, paroxysmal afib, AV valve replacement, HLD, lumbar spinal stenosis p/w worsening dyspnea, weakness, falls, dysphagia, malnutrition, and encephalopathy. Stable, slowly improving. Aspiration pneumonia, ILD -maintaining satisfactory saturations on 2L NC -coughs starting to be productive which is encouraging as pulmonary toilet has been a struggle so far -tolerating unasyn better than zosyn (no diarrhea today) - will continue with unasyn -no signs or symptoms of worsening -appreciate ongoing speech therapy recommendations -continue chronic prednisone, continue albuterol Dysphagia -anticipating patient's improved mentation will lead to improvement in dysphagia as well -continue tube feeds for now; patient is tolerating NG tube quite well so far -per palliative care consult, patient and family are leaning towards comfort- guided approach if dysphagia does not adequately improve Malnutrition, electrolyte abnormalities -anticipated refeeding syndrome might occur since patient has not had substantial PO intake in about one week -does appear to be occurring to some degree as patient has new mild hypokalemia, hypophosphatemia, hypomagnesemia -nutrition recommendations appreciated, NG tube feeds adjusted accordingly -supplementing K, phos, and thiamine -follow BMP daily Atrial fibrillation on chronic eliquis -had episode of afib with RVR early 07/25 to the 140s without concerning symptoms - improved to 90-100s with 2.5mg lopressor -as-needed metoprolol tartrate ordered, will assess for long-term need for rate control -holding eliquis, continue lovenox History of AV valve replacement -AC as above Neurogenic claudication s/p spine surgery -reassuring clinical picture per orthopedic consult; appreciate ongoing recommendations -continue gabapentin -continue PT/OT -not requiring opioid pain meds Encephalopathy -resolving/resolved - very reassuring clinical picture on 07/26 -was likely 2/2 aspiration pneumonia, hospitalization, tube feeds, PD -continue to monitor Parkinson's -continue carbidopa/levodopa IDDM2 -sugars not very well-controlled, but expected in the setting of acute illness -holding trulicity -continue glargine 10u qhs -continue ISS CKD3 -BUN/Cr reassuring and stable -continue to monitor Tinea cruris -continue terbinafine cream FENGI: formula NG feeds as above DVT ppx: lovenox Isolation: none Consults: palliative care, nutrition, orthopedic surgery Code status: DNR/DNI Dispo: pending clinical course (2) Encephalopathy: (3) Neurogenic claudication: (4) Tinea cruris: (5) Severe protein-calorie malnutrition: (6) Parkinsonism: (7) Fall: (8) Normocytic anemia: (9) Diabetes: (10) HLD (hyperlipidemia): (11) History of aortic valve replacement: (12) Interstitial lung disease: (13) PAF (paroxysmal atrial fibrillation): (14) Chronic kidney disease, stage 3a: Admission and Anticipated Discharge Date Admission Date: July 10, 2020 Supervising Physician Co-Signing Physician Notes I personally examined the patient and verified all peña points of history and exam, discussed case, and agree with decision making with Dr Govea. Is breathing better overall. No abdominal pain, no real confusion. Generally notes that he feels weak and lousy, but probably to the same or slightly better than before. Vitals noted, in general he is awake and alert pleasant no distress. HEENT normocephalic atraumatic NG tube in place without any local breakdown. Skin shows no rashes no pallor or icterus. Neuro shows no focal deficits. Aspiration pneumoniaseems to be clinically improving, continue Unasyn. Dysphagiastill working on outlining goals of care, of note he is more mentally alert, so he may actually have better swallowing that he did before. Continue tube feeds for now, will need to discuss with speech and palliative, because there may be more utility to a bedside reassessment as his mentation improves, although it is good to know that overall the patient and his son would prefer more of a comfort driven goal if his swallowing does not improve. Malnutritionwith his electrolytes being low and a bit of a nongapped acidosis, he seems to be showing lab evidence of a degree of refeeding, fortunately at the bedside he looks good. Discussed with nutrition, input greatly appreciated, tube feeds changed, continue to supplement potassium and phosphorus, supplement thiamine. Neurogenic claudicationpost spine surgery. PT/OT eval and treat Dispositionstable for medical, ongoing work on discussion of goals of care versus rehab planning, largely depending on how he progresses. Otherwise as above Subjective Patient seen at bedside this morning. Feels "not so good" overall but reports a mild symptomatic improvement since yesterday which he describes as "a relief". SOB has improved slightly and he is starting to be able to cough up the congestion in his chest. Still feels very weak. Back pain is also improved although he notes occasional mild pain shooting down his legs. Denies CP, GONZALEZ, worsened back pain, or other new symptoms. Review of Systems Review of Systems: See HPI Physical Exam Physical Exam: Awake, no acute distress, cooperative, mild/moderate difficulty with hearing improved with closer proximity NCAT, NG tube in left nostril without surrounding erythema Lungs with coarse rales bilaterally, moderate air movement, frequent coughing Cardiac rhythm regularity difficult to appreciate 2/2 lung sounds, rate as noted Abdomen soft nontender nondistended Alert, oriented, no focal neurologic deficits appreciated Euthymic, affect appropriate to topic of discussion, thought process logical and linear Results & Data Results & Data ([facility]) Vital Signs (Past 12 Hours) Vital Signs Temp Pulse Resp BP BP Pulse Ox 07/26/20 02:58 36.8 C 100 H 16 126/73 95 07/25/20 23:30 37.2 C 82 16 136/62 94 07/25/20 19:40 37.0 C 68 18 131/73 98 Resident Activity Tracking Resident Involvement: Resident Care Provided Care Provided: Adult Hospital Medicine (1) Diabetes Diabetes mellitus type: type 2 Diabetes mellitus correction insulin use: with correction use Diabetes mellitus complication status: with neurologic complications Diabetes mellitus complication detail: with polyneuropathy Qualified Code(s): 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
[2020-07-26] MEDS: levETIRAcetam 1,000 MG in 0.9 % SODIUM CHLORIDE 100 ML IV SCH ×2 (08:15→23:32)
[2020-07-26] MEDS: TERBINAFINE CR 30 GM TUBE EXT SCH ×2 (08:16→23:40)
[2020-07-26] MEDS: ENOXAPARIN 100 MG/1ML SYR SQ SCH ×2 (08:16→23:42)
[2020-07-26] MEDS: CARBIDOPA/LEVODOPA 25/100MG TAB PO SCH ×3 (08:17→23:44)
[2020-07-26] MEDS: TOPIRAMATE 100 MG TAB PO SCH ×2 (08:18→23:44)
[2020-07-26] MEDS: allopurinoL 100 MG TAB PO SCH (08:18)
[2020-07-26] MEDS: GABAPENTIN 600 MG TAB PO SCH ×2 (08:18→15:07)
[2020-07-26] MEDS ORDERED: POTASSIUM PHOS 3 MMOL/1 ML INFUSION IV STA ×2 (08:18→08:26)
[2020-07-26] MEDS: predniSONE 10 MG TABLET PO SCH (08:18)
[2020-07-26] MEDS ORDERED: POTASSIUM CHLORIDE 20 MEQ/15 ML UDC NG STA (08:26)
[2020-07-26] MEDS ORDERED: POTASSIUM PHOSPHATE 21 MMOL in SODIUM CHLORIDE 0.9% 500 ML IV ONE (09:00)
[2020-07-26] MEDS: MAGNESIUM SULFATE / D5W 1 GM/100 ML BAG IV SCH ×2 (09:37→11:47)
--- NOTE | 2020-07-26 11:42 | Palliative Care Consultation ---
Date of Consultation July 26, 2020 Assessment & Plan (1) Palliative care encounter: Xavi Bradford is a 75-year-old male with PMH significant for paroxysmal atrial fibrillation, mechanical aortic valve replacement, hyperlipidemia, diabetes, parkinsonism, interstitial lung disease, lumbar spinal stenosis, and frequent falls. He presented to the ED for evaluation of his frequent falls. He underwent a decompression of L3-4, L4-5 and L5-S1and is recovering overall and will require rehabilitation. Ultimately, this individual is also having dysphagia and has been noted by speech therapy to be a high aspiration risk and has been kept NPO with an NGT in place. Palliative Care was consulted to discuss goals of care. I met with Mr. Bradford who was lying in his bed, in no apparent distress. He was able to converse with me appropriately, although he was weak. We discussed his overall condition and big picture approach to his care. He did reflect that he wished he had gone to a [facility] earlier so that he could have had more assistance. 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 He really reflected on the andrew he has with his grandchildren. In discussing his code status, he was clear he would not want resuscitated in the event of cardiac or respiratory arrest. DNR/DNI placed in the computer. From a placement standpoint, it would be beneficial for him to receive some skilled therapy services or additional caregiver support. Case management working on referral options. Palliative care will follow up with Mr. Bradford and his son. (2) Severe protein-calorie malnutrition: (3) Encephalopathy: (4) Aspiration pneumonia: Speech Therapy has seen this individual and after discussion with them and jace jacobson their note, the patient is aspirating at least 50% of the time. He does have an NGT in place for nutrition currently, but we discussed this is not a correction solution. He understood and said " I think you need to talk to my son" When I asked Xavi what his thoughts were about feeding tubes, etc and what brings him quality of life, he became tearful and said "that would be no way to live". Eating does bring him andrew. I called his wonEric at [phone] and talked at length regarding the above including permanent feeding tubes and permissive feeding. He indicated that his Dad has a living will and it does state he would want feeding tubes. We talked about each scenario being situational and looking at his situation, this would be a permanent solution to his chronic aspiration. Eric would like to talk with his father about this, but is leaning more towards supporting his father in his wishes to not pursue a permanent feeding tube and allow permissive aspiration. This conversation will need to be followed up on as Eric was going to talk with his father tonquincy about this. (5) Weakness: (6) Neurogenic claudication: related to lumbar spine stenosis. History of Present Illness Reason for Consultation: Goals of care Requesting Physician: Dr. Edith Quinn Attending Physician: Jose R Navas DO History of Present Illness Xavi Bradford is a 75-year-old male with PMH significant for paroxysmal atrial fibrillation, mechanical aortic valve replacement, hyperlipidemia, diabetes, parkinsonism, interstitial lung disease, lumbar spinal stenosis, and frequent falls. He presented to the ED for evaluation of his frequent falls. He underwent a decompression of L3-4, L4-5 and L5-S1and is recovering overall and will require rehabilitation. Ultimately, this individual is also having dysphagia and has been noted by speech therapy to be a high aspiration risk and has been kept NPO with an NGT in place. Palliative Care was consulted to discuss goals of care. Please see A/P for further details. Thank you for involving palliative care with this individual. Allergies Allergy/AdvReac Type Severity Reaction Status Date / Time Iodinated Contrast Media Allergy Severe Anaphylaxis Verified 07/10/20 20:53 shellfish derived Allergy Severe Anaphylaxis Verified 07/10/20 20:53 Tetanus Vaccines and Toxoid Allergy Unknown Unknown Verified 07/10/20 20:53 Home Medications Medication Instructions Recorded Confirmed Type Trulicity 1.5 mg SUBCUT SA 01/20/20 07/10/20 History albuterol sulfate [Ventolin HFA] 2 puff INHALATION Q4H PRN 01/20/20 07/10/20 History allopurinol 200 mg PO 01/20/20 07/10/20 History azithromycin 250 mg PO [email or web address] 01/20/20 07/10/20 History cholecalciferol (vitamin D3) 2,000 unit PO 01/20/20 07/10/20 History [Vitamin D3] finasteride 5 mg PO QA 01/20/20 07/10/20 History insulin aspart U-100 0 unit SUBCUT ACHS 01/20/20 07/10/20 History ipratropium-albuterol 3 ml INHALATION QID PRN 01/20/20 07/10/20 History nitroglycerin 0.4 mg SUBLINGUAL DIRECTED PRN 01/20/20 07/10/20 History ksxjklv-[id number]-[id number] 1 tab PO HS 02/05/20 07/10/20 History gabapentin 600 mg tablet 600 mg PO BID tab 04/02/20 07/10/20 History levetiracetam 1,000 mg tablet 1,000 mg PO BID 90 Days #180 tab 04/02/20 07/10/20 Rx topiramate 100 mg tablet 100 mg PO BID 30 Days #60 tab 05/17/20 07/10/20 Rx atorvastatin 40 mg PO HS 05/28/20 07/10/20 History carbidopa 25 mg-levodopa 100 mg 0.5 tab PO TID #90 tab 07/02/20 07/10/20 Rx tablet insulin glargine [Lantus Solostar 20 unit SUBCUT BID 07/10/20 07/10/20 History U-100 Insulin] prednisone 10 mg PO DAILY 07/10/20 07/10/20 History Patient History Medical History (Updated 07/26/20 @ 11:42 by DALI Ortez) CAD (coronary artery disease) Dehydration Diabetes HLD (hyperlipidemia) Interstitial lung disease Interstitial lung disease due to connective tissue disease Lung nodule Neurogenic claudication Palliative care encounter Polymyositis Polymyositis Prostate cancer s/p XRT Rheumatoid arthritis Seizure-like activity Stroke-like symptom 12/2019, w/ blurry vision and dysarthria. mild R sided wkness. attending outpatient physical therapy w/ good improvement in strength (5+/5 strength of all 4 extremities as of 05/28/20) Thoracic ascending aortic aneurysm s/p repair Weakness Surgical History H/O hernia repair History of aortic valve replacement mechanical History of cholecystectomy History of fusion of cervical spine History of gastric bypass lap band History of heart artery stent History of lung biopsy 2019 History of partial nephrectomy Family History Other Coronary heart disease Rheumatoid arthritis Stroke Social History Smoking Status: Never smoker Second Hand Exposure: No; Hx Alcohol Use: No Hx Substance Use: No Preferred Language: Swiss Communication Ability: Effective Hearing Ability: Hard of Hearing Mailing Jogger Required: No Beliefs That Will Affect Care: None marital status: / Current Living Situation: Alone Current Living Situation Comment: son Other Information That Helps Us Care for You: No Feels Safe at Home: Yes Safety Concerns: Feels Safe At This Time Assistive Devices: None Review of Systems Review of Systems: Ribera System Assessment Scale: Tiredness: 0/3 Shortness of breath: 0/3 Pain: 0/3 Lack of Appetite: 1/3 Palliative Performance Scale: 40% Physical Exam Constitutional: + frail appearing, cooperative and comfortable Neck: trachea midline, no thyromegaly Respiratory: + cough Auscultation: + diminished lung sounds Cardiovascular: Heart Sounds: normal S1 and normal S2 Extremities: normal capillary refill and + edema Gastrointestinal (Abdomen): normal bowel sounds, soft, nontender, no hepatosplenomegaly NG tube in place Skin: + crusts, + dry skin and + pallor Psychiatric: A+Ox3, euthymic affect Insight: + limited insight Judgement: + limited judgement Lymphatic: no cervical or axillary lymphadenopathy Results & Data ([facility]) Vital Signs (Past 12 Hours) Vital Signs Temp Pulse Resp BP Pulse Ox 07/26/20 08:00 70 20 96 07/26/20 07:24 36.6 C 82 20 132/65 96 07/26/20 02:58 36.8 C 100 H 16 126/73 95 PG Care Time/CCT Total # of Minutes Spent Total Time Spent with Patient: Total time spent is greater than 50% in coordination of care (as documented) at patient's floor/unit and/or counseling patient: Total time spent 100 minutes with > 50% of that time spent assessing the patient, discussing goals of care with patient and family, discussing code status, and collaborating with IDT. Coding Level of Care Code 58195 Inpt Consult Level 4 Diagnoses Palliative care encounter Z51.5 Severe protein-calorie malnutrition E43 Encephalopathy G93.40 Aspiration pneumonia J69.0 Weakness R53.1 Neurogenic claudication M48.062 Time Spent (min) 100
--- NOTE | 2020-07-26 12:36 | Orthopedic Progress Note ---
Date of Service July 26, 2020 Assessment & Plan (1) Neurogenic claudication: Admission and Anticipated Discharge Date Admission Date: July 10, 2020 Patient is feeling somewhat improved. He still quite weak overall from his medical condition. I would recommend physical therapy to begin transfers from bed to chair as soon as he is medically stable. Subjective Patient feels his back pain is controlled and his leg pain has improved. He states he is feeling better overall today. Physical Exam Physical Exam: On exam he is in bed. He does have good strength in bilateral plantar flexion dorsiflexion. Results & Data ([facility]) Vital Signs (Past 12 Hours) Vital Signs Temp Pulse Resp BP Pulse Ox 07/26/20 11:47 36.3 C L 90 18 154/90 H 96 07/26/20 08:00 70 20 96 07/26/20 07:24 36.6 C 82 20 132/65 96 07/26/20 02:58 36.8 C 100 H 16 126/73 95
[2020-07-26 13:38] LABS: Calcium 8.1 mg/dl (8.5-10.1); Creatinine Clr Calc Pharmacy 86.7 ml/min; Est GFR (Non-African American) 81.1; Potassium 4.3 mmol/L (3.5-5.1)
[2020-07-26 13:58] LABS: Beta-Hydroxybutyrate 9.67 mg/dl (0.2-2.81)
--- NOTE | 2020-07-26 20:01 | Billing Data ---
Date of Service July 26, 2020 Coding Level of Care Code 48413 Subseq Hosp Care Lvl 3
[2020-07-26] MEDS ORDERED: THIAMINE HCL 100 MG in SYRINGE 9 ML IV STA (20:03)
[2020-07-26] MEDS: GABAPENTIN 250 MG/5 ML 470 ML BTL NG SCH (23:44)
[2020-07-26] MEDS: INSULIN GLARGINE SOLOSTAR 100 UNITS/ML 3 ML PEN SC SCH (23:46)
[2020-07-27] MEDS: GABAPENTIN 600 MG TAB PO SCH (00:47)
[2020-07-27] MEDS: AMPICILLIN/SULBACTAM SOD 1,500 MG in 0.9 % SODIUM CHLORIDE 100 ML IV SCH ×4 (01:08→18:29)
[2020-07-27] MEDS: INSULIN ASPART 100 UNITS/ML 3 ML PEN SC SCH ×4 (01:09→18:30)
[2020-07-27] MEDS: ALBUT/IPRATROP 3MG/0.5MG NEB 3 ML VIAL INH PRN ×2 (01:14→09:50)
[2020-07-27 05:55] LABS: Eosinophils % (auto) 2.5 %; Hematocrit (blood only) 27.3 % (42-52); Hemoglobin 8.8 g/dL (14.0-18.0); Immature Granulocytes # (auto) 0.01 K/uL (0.00-0.02); Immature Granulocytes % (auto) 0.2 %; Lymphocytes # (auto) 0.55 K/uL (1.2-3.4); Lymphocytes % (auto) 13.7 %; Mean Corpuscular Hemoglobin 26.9 pg (25-34); Mean Corpuscular Hgb Conc 32.2 g/dL (32-36); Mean Corpuscular Volume 83.5 fL (80-100); Mean Platelet Volume 9.2 fL (7.4-10.4); Monocytes # (auto) 0.24 K/uL (0.11-0.59); Neutrophils # (auto) 3.11 K/uL (1.4-6.5); Neutrophils % (auto) 77.6 %; Platelet Count 156 K/uL (130-400); RDW Coefficient of Variation 15.6 % (11.5-14.5); RDW Standard Deviation 48.2 fL (36.4-46.3); Red Blood Count 3.27 M/uL (4.7-6.1); White Blood Count 4.01 K/uL (4.8-10.8)
[2020-07-27 06:02] LABS: INR 1.1 (0.9-1.1); Prothrombin Time 11.1 Seconds (9.0-12.0)
[2020-07-27] MEDS: SODIUM CHLORIDE 0.9% 1000ML 1,000 ML IV SCH ×2 (06:05→13:24)
[2020-07-27 06:25] LABS: BUN Creatinine Ratio 22.4 (10-20); Calcium 7.7 mg/dl (8.5-10.1); Creatinine Clr Calc Pharmacy 94.9 ml/min; Est GFR (African American) 99.3; Est GFR (Non-African American) 85.7; Magnesium 1.9 mg/dl (1.8-2.4); Potassium 3.4 mmol/L (3.5-5.1)
--- NOTE | 2020-07-27 07:05 | Hospitalist Progress Note ---
Date of Service July 27, 2020 Assessment & Plan (1) Aspiration pneumonia: 75yo M with ILD (baseline 2L NC at nighttime), parkinson's, CKD3, IDDM2, paroxysmal afib, AV valve replacement, HLD, lumbar spinal stenosis p/w worsening dyspnea, weakness, falls, dysphagia, malnutrition, and encephalopathy. Stable, slowly improving. Aspiration pneumonia, ILD -maintaining satisfactory saturations on 2L NC; continues to show great improvement -tolerating unasyn better than zosyn (no diarrhea today) - will continue with unasyn -appreciate ongoing speech therapy recommendations -continue chronic prednisone, continue albuterol Dysphagia -anticipating patient's improved mentation will lead to improvement in dysphagia as well -continue tube feeds for now; patient is tolerating NG tube quite well so far -per palliative care consult, patient and family are leaning towards comfort- guided approach if dysphagia does not adequately improve, though outlook at the moment looks very promising Malnutrition, electrolyte abnormalities -anticipated refeeding syndrome might occur since patient has not had substantial PO intake in about one week -mild hypokalemia, hypophosphatemia persist but still mild; hypomagnesemia resol yessi -nutrition recommendations appreciated, NG tube feeds adjusted accordingly -supplementing K, phos, and thiamine -follow BMP daily Atrial fibrillation on chronic eliquis -had episode of afib with RVR early 07/25 to the 140s without concerning symptoms - improved to 90-100s with 2.5mg lopressor -as-needed metoprolol tartrate ordered, will assess for long-term need for rate control -holding eliquis, continue lovenox History of AV valve replacement -AC as above Neurogenic claudication s/p spine surgery -reassuring clinical picture per orthopedic consult; appreciate ongoing recommendations -continue gabapentin, continue PT/OT -not requiring opioid pain meds Encephalopathy -resolved; was likely 2/2 aspiration pneumonia, hospitalization, tube feeds, PD -continue to monitor Parkinson's -continue carbidopa/levodopa IDDM2 -sugars not very well-controlled, but expected in the setting of acute illness -holding trulicity -continue glargine 10u qhs, continue ISS CKD3 -BUN/Cr reassuring and stable; continue to monitor Tinea cruris -continue terbinafine cream FENGI: formula NG feeds as above DVT ppx: lovenox Isolation: none Consults: palliative care, nutrition, orthopedic surgery Code status: DNR/DNI Dispo: pending clinical course Admission and Anticipated Discharge Date Admission Date: July 10, 2020 Supervising Physician Co-Signing Physician Notes I personally examined the patient and verified all peña points of history and exam, discussed case, and agree with decision making with Dr Govea. resting comfortably no distress Vitals noted, in general he is awake and alert pleasant no distress. HEENT normocephalic atraumatic NG tube in place without any local breakdown. Skin shows no rashes no pallor or icterus. Neuro shows no focal deficits. Aspiration pneumonia clinically improving, continue Unasyn. Dysphagiadoes not want peg but does appear improving, speech reeval, for now NG feeds, but ad Malnutritionwith his electrolytes being low and a bit of a nongapped acidosis, he seems to be showing lab evidence of a degree of refeeding, does seem to be stabilizing though. continue tube feeds, supplementation, follow Neurogenic claudicationpost spine surgery. PT/OT eval and treat Dispositionstable on medical. will need snf after discharge Otherwise as above Subjective Seen at bedside this morning. Patient feels much better compared to yesterday. SOB, cough, and back pain are all improved compared to yesterday. Eager to work with PT/OT. Also hopes to eventually be able to swallow safely enough to have the NG tube removed. In good spirits today and comfortable. No CP, abdominal pain, nausea, vomiting. Review of Systems Review of Systems: See HPI Physical Exam Physical Exam: Awake, no acute distress, cooperative, pleasant, interactive NCAT, NG tube in left nostril without surrounding erythema Lungs with coarse rales bilaterally, moderate air movement, frequent coughing Cardiac rhythm regularity difficult to appreciate 2/2 lung sounds, rate as noted Abdomen soft nontender nondistended Alert, oriented, no focal neurologic deficits appreciated Euthymic, mood "pretty good", affect congruent with mood, thought process logical and linear Results & Data Results & Data ([facility]) Vital Signs (Past 12 Hours) Vital Signs Temp Pulse Resp BP Pulse Ox 07/27/20 01:14 68 20 96 07/26/20 22:13 37.1 C 86 24 176/83 H 96 07/26/20 20:44 37.2 C 72 20 176/76 H 97 07/26/20 19:25 37.0 C 86 20 147/82 H 99 Resident Activity Tracking Resident Involvement: Resident Care Provided Care Provided: Adult [facility] Medicine
[2020-07-27] MEDS: ENOXAPARIN 100 MG/1ML SYR SQ SCH ×2 (09:13→20:44)
[2020-07-27] MEDS: levETIRAcetam 1,000 MG in 0.9 % SODIUM CHLORIDE 100 ML IV SCH ×2 (09:13→20:44)
[2020-07-27] MEDS: THIAMINE HCL 100 MG in SYRINGE 9 ML IV SCH (09:14)
[2020-07-27] MEDS: TERBINAFINE CR 30 GM TUBE EXT SCH ×2 (09:22→20:45)
[2020-07-27] MEDS: CARBIDOPA/LEVODOPA 25/100MG TAB PO SCH ×3 (09:22→20:46)
[2020-07-27] MEDS: TOPIRAMATE 100 MG TAB PO SCH ×2 (09:24→20:46)
[2020-07-27] MEDS: predniSONE 10 MG TABLET PO SCH (09:25)
[2020-07-27] MEDS: allopurinoL 100 MG TAB PO SCH (09:25)
[2020-07-27] MEDS: GABAPENTIN 250 MG/5 ML 470 ML BTL NG SCH ×3 (09:28→20:44)
[2020-07-27] MEDS: ACETAMINOPHEN 65 ML IV PRN (10:27)
--- NOTE | 2020-07-27 10:42 | Orthopedic Progress Note ---
Date of Service July 27, 2020 Assessment & Plan (1) Neurogenic claudication: Patient will continue with bedside physical therapy. He has been evaluated by the palliative care team. We will continue with pain control. Orthopedically stable Admission and Anticipated Discharge Date Admission Date: July 10, 2020 Supervising Physician Co-Signing Physician Notes Dr. Darius Agarwal Subjective Patient is stable. NG tube is intact and functioning. Really no complaints. Had an uneventful evening. Is undergoing physical therapy at the bedside. Review of Systems Review of Systems: All systems reviewed & are unremarkable except as noted in HPI & below Physical Exam Physical Exam: Alert and oriented x3 Pleasant No acute distress Overall very weak. Follows commands. Calves are soft nontender bilateral lower extremities. Results & Data ([facility]) Vital Signs (Past 12 Hours) Vital Signs Temp Pulse Resp BP Pulse Ox 07/27/20 09:51 79 18 95 07/27/20 07:46 37.2 C 111 H 16 124/64 97 07/27/20 01:14 68 20 96
--- NOTE | 2020-07-27 16:16 | Palliative Care Progress Note ---
Date of Service July 27, 2020 Assessment & Plan (1) Palliative care encounter: I spoke with Xavi at bedside. He did initially indicate that he would want a PEG tube so that he could live longer. I asked him what he wanted his life to be like if he were living longer and whether not being able to eat or drink would be a meaningful life for him. We also discussed risks and lack of efficacy of feeding tube in someone in his situation. His reply was "Hmm, that's not much of a life". I also spoke with his son Eric, on the phone about our conversation. We discussed Xavi's multiple hospitalizations and illness' as an indicator that he is declining overall. We discussed the data and risks associated with artificial feeding. Eric told me that he is concerned that sometimes his father says what he thinks he's supposed to say rather than what he really thinks. In the past he has consistently made the decision to eat, knowing that there would be adverse consequences, but food is that important to him. We talked about the option to focus on comfort feeding, knowing the risk but he is not certain about that. Discussed with Dr. Navas. Will meet with Eric and Xavi tomorrow at 2pm to discuss further. (2) Aspiration pneumonia: Admission and Anticipated Discharge Date Admission Date: July 10, 2020 Subjective Awake and answering questions. Remembers discussion yesterday about feeding tubes. He c/o NG tube being uncomfortable. Review of Systems Review of Systems: [place] Symptom Assessment Scale Pain 0/3 Anxiety 1/3 Dyspnea 0/3 Drowsiness 0/3 Palliative Performance Score 40% Physical Exam Constitutional: + ill appearing; no acute distress ENMT: NG tube with continuous feeding at 20cc/hr Respiratory: moist cough Psychiatric: Orientation: alert and oriented x 3 Results & Data ([facility]) Vital Signs (Past 12 Hours) Vital Signs Temp Pulse Resp BP BP Pulse Ox 07/27/20 15:00 98.4 F 60 16 132/71 96 07/27/20 09:51 79 18 95 07/27/20 07:46 99.0 F 111 H 16 124/64 97 PG Care Time/CCT Total # of Minutes Spent Total Time Spent with Patient: Total time spent is greater than 50% in coordination of care (as documented) at patient's floor/unit and/or counseling patient: total time spent 45 minutes with more than 50% of time spent on goals of care, patient and family education, coordination of care. Coding Level of Care Code 86314 Subseq Hosp Care Lvl 3 Diagnoses Palliative care encounter Z51.5 Aspiration pneumonia J69.0
--- NOTE | 2020-07-27 18:45 | Billing Data ---
Date of Service July 27, 2020 Coding Level of Care Code 15720 Subseq Hosp Care Lvl 3
[2020-07-27] MEDS: INSULIN GLARGINE SOLOSTAR 100 UNITS/ML 3 ML PEN SC SCH (20:47)
[2020-07-27] MEDS: PEPTAMEN INTENSE VHP 1.0 CAL 1,000 ML BAG GT SCH (22:17)
[2020-07-28] MEDS: AMPICILLIN/SULBACTAM SOD 1,500 MG in 0.9 % SODIUM CHLORIDE 100 ML IV SCH ×5 (00:24→23:52)
[2020-07-28] MEDS: INSULIN ASPART 100 UNITS/ML 3 ML PEN SC SCH ×5 (00:29→20:06)
[2020-07-28] MEDS: SODIUM CHLORIDE 0.9% 1000ML 1,000 ML IV SCH ×2 (02:26→16:35)
[2020-07-28] MEDS: levETIRAcetam 1,000 MG in 0.9 % SODIUM CHLORIDE 100 ML IV SCH ×2 (08:11→20:16)
[2020-07-28] MEDS: TERBINAFINE CR 30 GM TUBE EXT SCH ×2 (08:13→20:13)
[2020-07-28] MEDS: ACETAMINOPHEN 1,000 MG/100 ML VIAL IV PRN ×2 (08:19→15:30)
[2020-07-28] MEDS: GABAPENTIN 250 MG/5 ML 470 ML BTL NG SCH ×3 (08:23→20:24)
[2020-07-28] MEDS: THIAMINE HCL 100 MG in SYRINGE 9 ML IV SCH (08:23)
[2020-07-28] MEDS: ENOXAPARIN 100 MG/1ML SYR SQ SCH ×2 (08:24→20:13)
[2020-07-28] MEDS: CARBIDOPA/LEVODOPA 25/100MG TAB PO SCH ×3 (08:24→20:14)
[2020-07-28] MEDS: predniSONE 10 MG TABLET PO SCH (08:25)
[2020-07-28] MEDS: TOPIRAMATE 100 MG TAB PO SCH ×2 (08:25→20:14)
[2020-07-28] MEDS: INSULIN GLARGINE SOLOSTAR 100 UNITS/ML 3 ML PEN SC SCH ×2 (08:26→20:13)
[2020-07-28] MEDS: allopurinoL 100 MG TAB PO SCH (08:37)
[2020-07-28 10:14] LABS: BUN Creatinine Ratio 24.6 (10-20); Calcium 8.5 mg/dl (8.5-10.1); Creatinine Clr Calc Pharmacy 94.5 ml/min; Est GFR (African American) 98.3; Est GFR (Non-African American) 84.8; Potassium 3.4 mmol/L (3.5-5.1)
--- NOTE | 2020-07-28 10:33 | Orthopedic Progress Note ---
Date of Service July 28, 2020 Assessment & Plan (1) Neurogenic claudication: Admission and Anticipated Discharge Date Admission Date: July 10, 2020 At this time we will continue physical therapy hopefully transfers from bed to chair and and advance as tolerated. Subjective Patient's back pain is controlled he feels his leg symptoms are improved. Overall he still feels weak but improving. Physical Exam Physical Exam: On exam he is much more alert and oriented today. Is excellent plantar flexion dorsiflexion bilaterally. Results & Data ([facility]) Vital Signs (Past 12 Hours) Vital Signs Temp Pulse Resp BP Pulse Ox 07/28/20 07:34 36.5 C 98 H 19 130/77 96 07/27/20 23:14 36.5 C 74 22 159/82 H 96
--- NOTE | 2020-07-28 15:53 | Palliative Care Progress Note ---
Date of Service July 28, 2020 Assessment & Plan (1) Aspiration pneumonia: Currently on NG feedings (2) Palliative care encounter: I met with Xavi and his son, Eric, at bedside. A repeat swallowing evaluation has been ordered by Dr. Navas. He has had some clinical improvement and may be better able to safely swallow. In the event that he is not able to swallow safely, we discussed what his wishes would be for future care. We discussed PEG tube with data showing limited efficacy as well as the complications associated with this. Eating is a very important quality of life issue for him and Eric has said that he has repeatedly made the choice in the past to eat, knowing that it could negatively impact his health. Xavi confirms that he would not want to live a life with enteral feedings. He and Eric feel that he would want to pursue oral feeding, even if swallowing study is unfavorable. They understand the risk and Xavi is relying on his robin. "If God wants me here, I'll be here." He is tearful and expresses worry about his family, particularly his grandchildren but denies worries for himself about dying. Eric is very supportive. Admission and Anticipated Discharge Date Admission Date: July 10, 2020 Subjective Reports feeling a little better today. "Not exactly comfortable" with NT tube. He is visiting with his son, Eric. Review of Systems Review of Systems: [place] Symptom Assessment Scale Pain 1/3 Dyspnea 0/3 Nausea 0/3 Fatigue 3/3 Anxiety 1/3 Drowsiness 0/3 Palliative Performance Score 30% Physical Exam Constitutional: + ill appearing; no acute distress ENMT: NG tube in place Dry oral mucosa Respiratory: normal respiratory effort and + cough (nonproductive); no labored breathing Gastrointestinal (Abdomen): Inspection/Auscultation: abdomen not distended Skin: warm and dry Psychiatric: Orientation: alert and oriented x 3 Results & Data ([facility]) Vital Signs (Past 12 Hours) Vital Signs Temp Pulse Resp BP Pulse Ox 07/28/20 07:34 97.7 F 98 H 19 130/77 96 PG Care Time/CCT Total # of Minutes Spent Total Time Spent with Patient: Total time spent is greater than 50% in coordination of care (as documented) at patient's floor/unit and/or counseling patient: total time spent 35 min with more than 50% of time spent on goals of care, family and patient support Coding Level of Care Code 35039 Subseq Hosp Care Lvl 3 Diagnoses Aspiration pneumonia J69.0 Palliative care encounter Z51.5
--- NOTE | 2020-07-28 17:25 | Hospitalist Progress Note ---
Date of Service July 28, 2020 Assessment & Plan (1) Aspiration pneumonia: 75yo M with ILD (baseline 2L NC at nighttime), parkinson's, CKD3, IDDM2, paroxysmal afib, AV valve replacement, HLD, lumbar spinal stenosis p/w worsening dyspnea, weakness, falls, dysphagia, malnutrition, and encephalopathy. Stable, slowly improving. Aspiration pneumonia, ILD -maintaining satisfactory saturations on 2L NC; steady improvement continues -c/w unasyn -appreciate ongoing speech therapy recommendations -continue chronic prednisone, continue albuterol Dysphagia -continue tube feeds for now; patient is tolerating NG tube quite well so far -per palliative care consult, patient and family are leaning towards comfort- guided approach if dysphagia does not adequately improve -per speech, patient has had longstanding dysphagia that has been gradually worsening long before aspiration PNA complicated picture - repeat video study would not provide more information and patient is not a candidate for compensatory strategies due to c-spine hardware that impacts swallowing function Malnutrition, electrolyte abnormalities -anticipated refeeding syndrome might occur since patient has not had substantial PO intake in about one week -mild hypokalemia, hypophosphatemia persist but still mild; hypomagnesemia resolved -nutrition recommendations appreciated, NG tube feeds adjusted accordingly -supplementing K, phos, and thiamine -follow BMP daily Atrial fibrillation on chronic eliquis -had episode of afib with RVR early 07/25 to the 140s without concerning symptoms - improved to 90-100s with 2.5mg lopressor -07/28 brief mild tachycardia to 110, resolved without intervention. continue to monitor -holding eliquis, continue lovenox History of AV valve replacement -AC as above Neurogenic claudication s/p spine surgery -reassuring clinical picture per orthopedic consult; appreciate ongoing recommendations -continue gabapentin, continue PT/OT -not requiring opioid pain meds Encephalopathy -resolved; was likely 2/2 aspiration pneumonia, hospitalization, tube feeds, PD -continue to monitor Parkinson's -continue carbidopa/levodopa IDDM2 -sugars not very well-controlled, but expected in the setting of acute illness -holding trulicity -continue glargine 10u qhs, continue ISS CKD3 -BUN/Cr reassuring and stable; continue to monitor Tinea cruris -continue terbinafine cream FENGI: formula NG feeds as above DVT ppx: lovenox Isolation: none Consults: palliative care, nutrition, orthopedic surgery Code status: DNR/DNI Dispo: pending clinical course Admission and Anticipated Discharge Date Admission Date: July 10, 2020 Supervising Physician Co-Signing Physician Notes I personally examined the patient and verified all peña points of history and exam, discussed case, and agree with decision making with Dr Govea. feeling better overall. no new complaints Vitals noted, in general he is awake and alert pleasant no distress. HEENT normocephalic atraumatic NG tube in place without any local breakdown. lungs more or less cta no significant r/r/w good effort. Skin shows no rashes no pallor or icterus. Neuro shows no focal deficits. Aspiration pneumonia clinically improving, continue Unasyn. clearing nicely. Dysphagiadoes not want peg but does appear improving, speech re-eval, for now NG feeds, start to trial PO intake again tomorrow once he's had a little bit longer with more adequate nutrition (both for strength and to mitigate additional refeeding risk of PO + NG) Malnutritionwith his electrolytes being low and a bit of a nongapped acidosis, he seems to be showing lab evidence of a degree of refeeding, does seem to be stabilizing though. continue tube feeds, supplementation, follow dm - titrate insulins Neurogenic claudicationpost spine surgery. PT/OT eval and treat Dispositionstable on medical. will need snf after discharge Otherwise as above Subjective Received report from nurse that patient experienced increased back pain this morning after IV acetaminophen had been discontinued overnight. Spoke with patient about 30 mins after restarting it - said pain was mild and starting to improve. Patient reports continued improvement compared to yesterday - improved SOB, cough, fatigue, and increasing strength. Feels well and is eager to work more with PT/OT. No CP, nausea, vomiting, fever, or other symptoms. Review of Systems Review of Systems: See HPI Physical Exam Physical Exam: Awake, alert, laying in bed HEENT: NCAT, NG tube in left nostril, MMM CV: mildly tachycardic, regular rhythm Resp: coarse rales improved from yesterday, no increased WOB Neuro: no focal deficits Psych: euthymic, good mood, logical linear thought process Results & Data Results & Data ([facility]) Vital Signs (Past 12 Hours) Vital Signs Temp Pulse Resp BP Pulse Ox 07/28/20 15:49 37.0 C 78 18 130/64 98 07/28/20 07:34 36.5 C 98 H 19 130/77 96 Resident Activity Tracking Resident Involvement: Resident Care Provided Care Provided: Adult Hospital Medicine
[2020-07-28] MEDS ORDERED: POTASSIUM PHOS 3 MMOL/1 ML INFUSION IV ONE (17:42)
[2020-07-28] MEDS ORDERED: POTASSIUM PHOSPHATE 21 MMOL in SODIUM CHLORIDE 0.9% 500 ML IV ONE (18:15)
--- NOTE | 2020-07-28 18:28 | Billing Data ---
Date of Service July 28, 2020 Coding Level of Care Code 81874 Subseq Hosp Care Lvl 3
[2020-07-28] MEDS: PEPTAMEN INTENSE VHP 1.0 CAL 1,000 ML BAG GT SCH (18:45)
[2020-07-29] MEDS: INSULIN ASPART 100 UNITS/ML 3 ML PEN SC SCH ×7 (00:01→23:58)
[2020-07-29] MEDS: SODIUM CHLORIDE 0.9% 1000ML 1,000 ML IV SCH ×2 (05:12→19:57)
[2020-07-29] MEDS: AMPICILLIN/SULBACTAM SOD 1,500 MG in 0.9 % SODIUM CHLORIDE 100 ML IV SCH ×4 (05:12→23:42)
--- NOTE | 2020-07-29 08:04 | Hospitalist Progress Note ---
Date of Service July 29, 2020 Assessment & Plan (1) Aspiration pneumonia: 75yo M with ILD (baseline 2L NC at nighttime), parkinson's, CKD3, IDDM2, paroxysmal afib, AV valve replacement, HLD, lumbar spinal stenosis p/w worsening dyspnea, weakness, falls, dysphagia, malnutrition, and encephalopathy. Stable, slowly improving. Aspiration pneumonia, ILD -maintaining satisfactory saturations on 2L NC; steady improvement continues -c/w unasyn -appreciate ongoing speech therapy recommendations -continue chronic prednisone, continue albuterol Dysphagia -continue tube feeds for now; patient is tolerating NG tube quite well so far -per palliative care consult, patient and family are leaning towards comfort- guided approach if dysphagia does not adequately improve -failed repeat swallow study; NG tube disloged -sticking with honey thick nectar consistency foods, OK for PO meds (crushed or within pudding) -gave one-time gabapentin and sinemet to make up for scheduled doses he missed while NG was dislodged -no plan to replace NG tube Malnutrition, electrolyte abnormalities -anticipated refeeding syndrome might occur since patient has not had substantial PO intake in about one week -mild hypokalemia, hypophosphatemia persist but still mild; hypomagnesemia resolved -nutrition recommendations appreciated, NG tube feeds adjusted accordingly -supplementing K, phos, and thiamine -repeat BMP in AM Atrial fibrillation on chronic eliquis -had episode of afib with RVR early 07/25 to the 140s without concerning symptoms - improved to 90-100s with 2.5mg lopressor -continue to monitor -holding eliquis, continue lovenox History of AV valve replacement -AC as above Neurogenic claudication s/p spine surgery -reassuring clinical picture per orthopedic consult; appreciate ongoing recommendations -continue gabapentin, continue PT/OT -not requiring opioid pain meds Encephalopathy -resolved; was likely 2/2 aspiration pneumonia, hospitalization, tube feeds, PD -continue to monitor Parkinson's -continue carbidopa/levodopa IDDM2 -control slowly improving but bsg still elevated -holding trulicity -glargine increased to home dose (20u bid), continue ISS (tightened CC and CF 07/29) CKD3 -BUN/Cr reassuring and stable; continue to monitor Tinea cruris -continue terbinafine cream DEVII: formula NG feeds as above DVT ppx: lovenox Isolation: none Consults: palliative care, nutrition, orthopedic surgery Code status: DNR/DNI Dispo: pending clinical course Admission and Anticipated Discharge Date Admission Date: July 10, 2020 Supervising Physician Co-Signing Physician Notes I personally examined the patient and verified all peña points of history and exam, discussed case, and agree with decision making with Shirin resting comfortably. video fluoro images and report reviewed Vitals noted, in general he is awake and alert pleasant no distress. HEENT normocephalic atraumatic NG tube in place without any local breakdown. lungs more or less cta no significant r/r/w good effort. Skin shows no rashes no pallor or icterus. Neuro shows no focal deficits. Aspiration pneumonia clinically improving, probably can stop unasyn soon Dysphagiatrial of feeding Malnutritioncautious trial of feeding dm - continue to titrate insulins Neurogenic claudicationpost spine surgery. PT/OT eval and treat Dispositionstable on medical. will need snf after discharge Otherwise as above Subjective No acute events overnight. Failed swallow study with only honey thick pureed tolerated. Spoke at length with patient about goals of care, and he decided to go with honey thick pureed consistency food rather than NG tube or peg tube (as previously discussed). Patient was disappointed but felt well overall today. Cough, fatigue, SOB, back pain all improving. Denies pain, fever, nausea, vomiting, headache, or other concerns. Review of Systems Review of Systems: See HPI Physical Exam Physical Exam: Awake, alert, laying in bed HEENT: NCAT, MMM CV: mildly tachycardic, regular rhythm Resp: mild/moderate coarse rales, no increased WOB Neuro: no focal deficits Psych: euthymic, good mood, logical linear thought process Results & Data Results & Data ([facility]) Vital Signs (Past 12 Hours) Vital Signs Temp Pulse Resp BP Pulse Ox 07/29/20 07:32 36.6 C 68 16 128/65 97 07/28/20 23:55 36.8 C 80 18 113/57 L 96 Resident Activity Tracking Resident Involvement: Resident Care Provided Care Provided: Adult Hospital Medicine
[2020-07-29] MEDS: TERBINAFINE CR 30 GM TUBE EXT SCH ×2 (08:20→20:40)
[2020-07-29] MEDS: levETIRAcetam 1,000 MG in 0.9 % SODIUM CHLORIDE 100 ML IV SCH ×2 (08:20→20:39)
[2020-07-29] MEDS: THIAMINE HCL 100 MG in SYRINGE 9 ML IV SCH (08:22)
[2020-07-29] MEDS: ENOXAPARIN 100 MG/1ML SYR SQ SCH ×2 (08:24→20:40)
[2020-07-29] MEDS: GABAPENTIN 250 MG/5 ML 470 ML BTL NG SCH ×2 (08:25→15:42)
--- NOTE | 2020-07-29 08:25 | Orthopedic Progress Note ---
Date of Service July 29, 2020 Assessment & Plan (1) Neurogenic claudication: Admission and Anticipated Discharge Date Admission Date: July 10, 2020 This time we will continue to course the patient to get to a chair and stand and even ambulate as tolerated. Subjective Patient states his back pain and leg pain has improved. Physical Exam Physical Exam: Patient is bed. Has good strength with plantar flexion dorsiflexion bilaterally. Results & Data ([facility]) Vital Signs (Past 12 Hours) Vital Signs Temp Pulse Resp BP Pulse Ox 07/29/20 07:32 36.6 C 68 16 128/65 97 07/28/20 23:55 36.8 C 80 18 113/57 L 96
[2020-07-29] MEDS: INSULIN GLARGINE SOLOSTAR 100 UNITS/ML 3 ML PEN SC SCH ×2 (08:31→21:30)
[2020-07-29] MEDS: allopurinoL 100 MG TAB PO SCH (08:37)
[2020-07-29] MEDS: TOPIRAMATE 100 MG TAB PO SCH ×2 (08:37→20:41)
[2020-07-29] MEDS: predniSONE 10 MG TABLET PO SCH (08:37)
[2020-07-29] MEDS: CARBIDOPA/LEVODOPA 25/100MG TAB PO SCH ×3 (08:37→20:41)
--- NOTE | 2020-07-29 11:11 | Palliative Care Progress Note ---
Date of Service July 29, 2020 Assessment & Plan (1) Palliative care encounter: We talked about discussion yesterday regarding artificial feeding. He has been considering this over night and has done some research on PEG tubes. He would not want to proceed with that. He is hopeful about swallowing evaluation today and we discussed adjusting consistencies and techniques to maximize his safety for eating. He tells me that he is not signing up to but does understand the risks and that eating is important to him. He has excellent support from his son Eric and gets great pleasure from his grandchildren. Admission and Anticipated Discharge Date Admission Date: July 10, 2020 Subjective Just finished physical therapy and reports that he sat in the chair for an hour this morning. He is tired but pleased with his progress. He has swallowing evaluation later this morning. Review of Systems Review of Systems: [place] Symptom Assessment Scale Pain 0/3 Nausea 0/3 Dyspnea 0/3 Fatigue 2/3 Anxiety 1/3 Drowsiness 0/3 Palliative Performance Score 40% Physical Exam Constitutional: + ill appearing; no acute distress ENMT: Mouth: + dry oral mucous membranes NG tube in place Respiratory: normal respiratory effort; no labored breathing Gastrointestinal (Abdomen): Inspection/Auscultation: abdomen not distended Neurologic: awake; not confused Psychiatric: Orientation: oriented x 3 Results & Data ([facility]) Vital Signs (Past 12 Hours) Vital Signs Temp Pulse Resp BP Pulse Ox 07/29/20 07:32 97.9 F 68 16 128/65 97 07/28/20 23:55 98.2 F 80 18 113/57 L 96 PG Care Time/CCT Total # of Minutes Spent Total Time Spent with Patient: Total time spent is greater than 50% in coordination of care (as documented) at patient's floor/unit and/or counseling patient: Coding Level of Care Code 65131 Subseq Hosp Care Lvl 2 Diagnoses Palliative care encounter Z51.5
--- NOTE | 2020-07-29 12:41 | Fluoroscopy Report ---
FL video swallow CLINICAL HISTORY: 75 years-old Male with assess for aspiration. Dysphagia. TECHNIQUE: Video fluoroscopic evaluation of swallowing was performed in the AP and lateral projection s by the speech pathology staff. The patient is fed thin liquid barium, nectar thick and pudding cons istencies. FLUOROSCOPY TIME: 2.4 minutes. COMPARISON STUDY: Swallow study 07/23/2020. FINDINGS: Aspiration with thin liquid and nectar thick consistencies. No aspiration with pudding cons istency. Vallecular retention is noted with poor pharyngeal constriction. Cervical spinal fusion hard elizalde. IMPRESSION: 1. Aspiration as above. 2. Please see the speech pathologist report for detailed findings and recommendations. ACT 112: Negative or not required by law. Electronically signed by: Terry Orozco M.D. 07/29/2020 12:39 PM
[2020-07-29] MEDS ORDERED: GABAPENTIN 250 MG/5 ML 470 ML BTL PO STA (15:34)
[2020-07-29] MEDS ORDERED: GABAPENTIN 600 MG TAB PO STA (17:28)
--- NOTE | 2020-07-29 20:03 | Billing Data ---
Date of Service July 29, 2020 Coding Level of Care Code 35328 Subseq Hosp Care Lvl 2
[2020-07-29] MEDS: GABAPENTIN 250 MG/5 ML 470 ML BTL PO SCH (20:41)
[2020-07-30] MEDS: ACETAMINOPHEN 1,000 MG/100 ML VIAL IV PRN ×3 (01:27→21:02)
[2020-07-30] MEDS: INSULIN ASPART 100 UNITS/ML 3 ML PEN SC SCH ×6 (04:21→20:44)
[2020-07-30] MEDS: AMPICILLIN/SULBACTAM SOD 1,500 MG in 0.9 % SODIUM CHLORIDE 100 ML IV SCH ×4 (06:00→23:50)
[2020-07-30] MEDS: TERBINAFINE CR 30 GM TUBE EXT SCH ×2 (08:24→20:43)
[2020-07-30] MEDS: levETIRAcetam 1,000 MG in 0.9 % SODIUM CHLORIDE 100 ML IV SCH ×2 (08:24→20:40)
[2020-07-30] MEDS: SODIUM CHLORIDE 0.9% 1000ML 1,000 ML IV SCH (08:24)
[2020-07-30] MEDS: GABAPENTIN 250 MG/5 ML 470 ML BTL PO SCH ×2 (08:27→12:45)
[2020-07-30] MEDS: ENOXAPARIN 100 MG/1ML SYR SQ SCH ×2 (08:28→20:41)
[2020-07-30] MEDS: THIAMINE HCL 100 MG in SYRINGE 9 ML IV SCH (08:29)
[2020-07-30 08:37] LABS: BUN Creatinine Ratio 21.4 (10-20); Calcium 8.2 mg/dl (8.5-10.1); Creatinine Clr Calc Pharmacy 95.9 ml/min; Est GFR (African American) 99.3; Est GFR (Non-African American) 85.7; Magnesium 1.7 mg/dl (1.8-2.4); Potassium 3.3 mmol/L (3.5-5.1)
[2020-07-30] MEDS: CARBIDOPA/LEVODOPA 25/100MG TAB PO SCH ×3 (08:39→20:41)
[2020-07-30] MEDS: TOPIRAMATE 100 MG TAB PO SCH ×2 (08:41→20:41)
[2020-07-30] MEDS: predniSONE 10 MG TABLET PO SCH (08:41)
[2020-07-30] MEDS: allopurinoL 100 MG TAB PO SCH (08:41)
--- NOTE | 2020-07-30 09:16 | Hospitalist Progress Note ---
Date of Service July 30, 2020 Assessment & Plan (1) Aspiration pneumonia: 75yo M with ILD (baseline 2L NC at nighttime), parkinson's, CKD3, IDDM2, paroxysmal afib, AV valve replacement, HLD, lumbar spinal stenosis p/w worsening dyspnea, weakness, falls, dysphagia, malnutrition, and encephalopathy. Stable, slowly improving. Aspiration pneumonia, ILD -maintaining satisfactory saturations on 2L NC; steady improvement continues -c/w unasyn -appreciate ongoing speech therapy recommendations -continue chronic prednisone, continue albuterol Dysphagia -patient prefers a more comfort-based approach; has opted to stick with honey- thick pureed as opposed to NG/PEG; tolerating this diet well so far and can take meds either crushed or placed in pudding -no plan to replace NG tube Malnutrition, electrolyte abnormalities -07/30: hypophosphatemia resolved; mild hypokalemia and hypocalcemia persist, new mild hypomagnesemia - repleting as below: -potassium chloride 20mEq bid -magnesium oxide 400mg bid -calcium carbonate 1250mg bid -repeat BMP in AM Atrial fibrillation on chronic eliquis -07/25: episode asymptomatic afib with RVR to the 140s - improved to 90-100s with 2.5mg lopressor -continue to monitor -holding eliquis, continue lovenox History of AV valve replacement -AC as above Neurogenic claudication s/p spine surgery -reassuring clinical picture per orthopedic consult; appreciate ongoing recommendations -continue gabapentin, continue PT/OT -not requiring opioid pain meds Encephalopathy -resolved; was likely 2/2 aspiration pneumonia, hospitalization, tube feeds, PD -continue to monitor -dignishield likely unnecessary; discontinued on 07/30 after it began leaking, will monitor for success without it Parkinson's -continue carbidopa/levodopa IDDM2 -holding trulicity -glargine adjusted on 07/30 to 15u bid (from 20u bid) as transition from tube feeds to PO resulted in slightly lower overall intake -CF adjusted to 25, CHO adjusted to 8 per glycemic consult recommendations -q4 ISS frequency changed to achs -continue to monitor CKD3 -BUN/Cr reassuring and stable; continue to monitor Tinea cruris -continue terbinafine cream FENGI: formula NG feeds as above DVT ppx: lovenox Isolation: none Consults: palliative care, nutrition, orthopedic surgery Code status: DNR/DNI Dispo: pending clinical course Admission and Anticipated Discharge Date Admission Date: July 10, 2020 Supervising Physician Co-Signing Physician Notes I personally examined the patient and verified all peña points of history and exam, discussed case, and agree with decision making with Dr Ann 8 shortly before I saw him. Noted that he did well with it was either cream of wheat or oatmeal, not as well with yogurt, but only had maybe one episode of coughing, and does not feel short of breath. Vitals noted, in general he is awake and alert pleasant no distress. HEENT normocephalic atraumatic mucous membranes moist. lungs very faint rhonchi right greater than left. Skin shows no rashes no pallor or icterus. Neuro shows no focal deficits. Aspiration pneumonia clinically improving, probably can stop unasyn soon (will continue another day or 2 just as above for to protect from worsening as he starts eating again) Dysphagiatrial of feedingcautiously. Seems to be going okay. Aware that he will aspirate, but at least as of today, does not appear to have done so very severely Malnutritioncautious trial of feeding dm - continue to titrate insulins as his p.o. intake changes. Neurogenic claudicationpost spine surgery. PT/OT eval and treat Dispositionstable on medical. will need snf after discharge Otherwise as above Subjective Patient seen at bedside this morning. No acute events overnight. Feels well today without complaints. SOB has almost resolved, patient is not in pain. Eating is going "just okay" but patient is very happy to not have NG tube anymore. Later in the day, patient's dignishield began to leak and he wanted to trial discontinuing it and seeing how things will go, which I agreed was reasonable. Review of Systems Review of Systems: See HPI Physical Exam Physical Exam: Awake, alert, laying in bed, cooperative, interactive NCAT, MMM CV - regular rate, regular rhythm Resp: mild/moderate coarse rales, no change from yesterday, no increased WOB Neuro: no focal deficits Psych: euthymic, good mood, logical linear thought process Results & Data Results & Data ([facility]) Vital Signs (Past 12 Hours) Vital Signs Temp Pulse Resp BP Pulse Ox 07/30/20 07:09 37 C 104 H 18 120/70 96 07/29/20 23:30 36.6 C 71 18 122/69 97 Chemistry Results CMP Results: Na 141 mmol/L (136-145) 07/30/20 K 3.3 mmol/L (3.5-5.1) L 07/30/20 Cl 116 mmol/L (98-107) H 07/30/20 CO2 18 mmol/L (21-32) L 07/30/20 Anion Gap 7.0 (3-11) 07/30/20 BUN 18 mg/dl (7-18) 07/30/20 Creatinine 0.84 mg/dl (0.6-1.4) 07/30/20 Estimated GFR ( Amer) 99.3 07/30/20 Estimated GFR (Non-Af Amer) 85.7 07/30/20 BUN/Creatinine Ratio 21.4 (10-20) H 07/30/20 Glu 129 mg/dl (70-99) H 07/30/20 Ca 8.2 mg/dl (8.5-10.1) L 07/30/20 Phosphorus Level 3.0 mg/dl (2.5-4.9) 07/30/20 Total Bilirubin 0.7 mg/dl (0.2-1) 07/21/20 Direct Bilirubin 0.1 mg/dl (0-0.2) 01/22/20 AST 20 U/L (15-37) 07/21/20 ALT 14 U/L (12-78) 07/21/20 Alkaline Phosphatase 49 U/L (45-117) 07/21/20 TP 5.8 gm/dl (6.4-8.2) L 07/21/20 Albumin 3.1 gm/dl (3.4-5.0) L 07/21/20 Globulin 2.7 gm/dl (2.5-4.0) 07/21/20 Albumin/Globulin Ratio 1.2 (0.9-2) 07/21/20 Resident Activity Tracking Resident Involvement: Resident Care Provided Care Provided: Adult Hospital Medicine
[2020-07-30] MEDS: INSULIN GLARGINE SOLOSTAR 100 UNITS/ML 3 ML PEN SC SCH ×2 (09:21→20:43)
--- NOTE | 2020-07-30 12:34 | Palliative Care Progress Note ---
Date of Service July 30, 2020 Assessment & Plan (1) Weakness: Participating in PT. He feels that he is making progress every day. Discussed plan for rehab at a facility prior to discharge home. He acknowledges that even with this, he will likely need help at home. (2) Palliative care encounter: He is DNR/DNI. He has decided to continue oral intake with adjusted consistencies including honey thick liquids and pudding consistency. Evaluation shows pharyngeal weakness. Discussed with Dr. Navas about potential benefit from speech therapy during rehab. Xavi is agreeable to this. I tried to call Eric to update but no answer. Admission and Anticipated Discharge Date Admission Date: July 10, 2020 Subjective Per RN, Xavi ate a bowl of oatmeal without difficulty. He is not a fan of thickened liquids "What's the point?" Plan for taking some steps today in PT. Review of Systems Review of Systems: [place] Symptom Assessment Scale Pain0/3 Dyspnea 0/3 Nausea 0/3 Anxiety 0/3 Drowsiness 0/3 Fatigue 2/3 Palliative Performance Score 40% Physical Exam Constitutional: no acute distress ENMT: NG tube removed Respiratory: normal respiratory effort; no labored breathing Neurologic: no focal motor deficits Psychiatric: Orientation: alert and oriented x 3 Affect: + depressed affect Results & Data ([facility]) Vital Signs (Past 12 Hours) Vital Signs Temp Pulse Resp BP Pulse Ox 07/30/20 07:09 98.6 F 104 H 18 120/70 96 PG Care Time/CCT Total # of Minutes Spent Total Time Spent with Patient: Total time spent is greater than 50% in coordination of care (as documented) at patient's floor/unit and/or counseling patient: Coding Level of Care Code 20869 Subseq Hosp Care Lvl 2 Diagnoses Weakness R53.1 Palliative care encounter Z51.5
--- NOTE | 2020-07-30 20:03 | Billing Data ---
Date of Service July 30, 2020 Coding Level of Care Code 18940 Subseq Hosp Care Lvl 3
[2020-07-30] MEDS: LACTATED RINGER'S 1,000 ML IV SCH (20:40)
[2020-07-30] MEDS: GABAPENTIN 300 MG CAP PO SCH (20:42)
[2020-07-30] MEDS ORDERED: GABAPENTIN 600 MG TAB PO SCH (21:00)
[2020-07-30] MEDS: POTASSIUM CHLORIDE PWD 20 MEQ PACK PO SCH (21:03)
[2020-07-30] MEDS: CALCIUM CARBONATE 1,250 MG/5 ML UDC PO SCH (21:03)
[2020-07-30] MEDS: MAGNESIUM OXIDE 400 MG TAB PO SCH (21:03)
[2020-07-31] MEDS: ALBUT/IPRATROP 3MG/0.5MG NEB 3 ML VIAL INH PRN (00:39)
[2020-07-31] MEDS: AMPICILLIN/SULBACTAM SOD 1,500 MG in 0.9 % SODIUM CHLORIDE 100 ML IV SCH ×3 (05:57→18:15)
--- NOTE | 2020-07-31 08:10 | Hospitalist Progress Note ---
Date of Service July 31, 2020 Assessment & Plan (1) Aspiration pneumonia: 75yo M with ILD (baseline 2L NC at nighttime), parkinson's, CKD3, IDDM2, paroxysmal afib, AV valve replacement, HLD, lumbar spinal stenosis p/w worsening dyspnea, weakness, falls, dysphagia, malnutrition, and encephalopathy. Stable, slowly improving. Aspiration pneumonia, ILD -maintaining satisfactory saturations on room air; steady improvement continues -c/w unasyn plan to d/c tomorrow -appreciate ongoing speech therapy recommendations -Pured diet with honey thick liquids, strict aspiration precautions -continue chronic prednisone, continue albuterol Dysphagia -patient prefers a more comfort-based approach; has opted to stick with honey- thick pureed as opposed to NG/PEG; tolerating this diet well so far and can take meds either crushed or placed in pudding -goal for 60 oz of liquid today -no plan to replace NG tube Malnutrition, electrolyte abnormalities -07/30: hypophosphatemia resolved; mild hypokalemia and hypocalcemia persist, new mild hypomagnesemia - repleting as below: -potassium chloride 20mEq bid -magnesium oxide 400mg bid -calcium carbonate 1250mg bid -repeat BMP in AM Atrial fibrillation on chronic eliquis -07/25: episode asymptomatic afib with RVR to the 140s - improved to 90-100s with 2.5mg lopressor -continue to monitor -holding eliquis, continue lovenox History of AV valve replacement -AC as above Neurogenic claudication s/p spine surgery -reassuring clinical picture per orthopedic consult; appreciate ongoing recommendations -cleared from an orthopedic standpoint -continue gabapentin, continue PT/OT -not requiring opioid pain meds Encephalopathy -resolved; was likely 2/2 aspiration pneumonia, hospitalization, tube feeds, PD -continue to monitor Parkinson's -continue carbidopa/levodopa IDDM2 -holding trulicity -glargine adjusted on 07/30 to 15u bid (from 20u bid) as transition from tube feeds to PO resulted in slightly lower overall intake -CF adjusted to 25, CHO adjusted to 8 per glycemic consult recommendations -q4 ISS frequency changed to achs -continue to monitor CKD3 -BUN/Cr reassuring and stable; continue to monitor Tinea cruris -continue terbinafine cream FENGI: formula NG feeds as above DVT ppx: lovenox Isolation: none Consults: palliative care, nutrition, orthopedic surgery Code status: DNR/DNI Dispo: pending pt/ot and placement Admission and Anticipated Discharge Date Admission Date: July 10, 2020 Supervising Physician Co-Signing Physician Notes I personally examined the patient and verified all peña points of history and exam, discussed case, and agree with decision making with Dr Dong Very pleased with his progresshe notes that he ate the protein Jell-O and was able to take a gabapentin with the protein Jell-O with no coughing/gagging/sputtering. With his current textures he feels like he is doing pretty well. Has no shortness of breath. He also notes he walked about 12 feet with therapy! Vitals noted, in general he is awake and alert pleasant no distress. HEENT normocephalic atraumatic mucous membranes moist. Lungs clear to auscultation todaythe faint rhonchi from yesterday have actually improved. No rales rhonchi or wheezes good effort. No accessory muscle use. Aspiration pneumonia clinically improving, probably can stop unasyn soon (will continue another day or so just as above for to protect from worsening as he starts eating againobviously can extend longer if clinically warranted) Dysphagiatrial of feedingcautiously. Seems to be going okay. Aware that he will aspirate, but at least as of today, does not appear to have done so very severely, continue modified diet. Will hold fluids, discussed with nursing goal of 60 ounces of p.o. fluid intakefollow basic metabolic panel, if anything appears that he is getting dry, or falling behind with fluids, can resume IV fluids. Malnutritioncautious trial of feeding ongoing dm - continue to titrate insulins as his p.o. intake changes. Sugar still fairly erratic, but his p.o. intake/carb intake has basically been changing by the day. Neurogenic claudicationpost spine surgery. PT/OT eval and treat Dispositionstable on medical. will need snf after discharge, will go home with ongoing PT/OT/speech Otherwise as above Subjective Patient lying in bed this morning in no acute distress, reports doing well. Patient is tolerating his diet, voiding, stooling, slept well overnight. Acute concerns are related to placement, all questions were answered Results & Data Results & Data ([facility]) Vital Signs (Past 12 Hours) Vital Signs Temp Pulse Resp BP BP Pulse Ox 07/31/20 07:00 36.7 C 77 16 136/74 97 07/31/20 00:40 101 H 20 99 07/30/20 22:59 36.8 C 67 18 126/71 97 Laboratory Results 07/31/20 07/31/20 07/31/20 Range/Units 11:56 08:16 08:01 Sodium 142 (136-145) mmol/L Potassium 3.3 L (3.5-5.1) mmol/L Chloride 116 H (98-107) mmol/L Carbon Dioxide 21 (21-32) mmol/L Anion Gap 6.0 (3-11) BUN 20 H (7-18) mg/dl Creatinine 0.94 (0.6-1.4) mg/dl Est Cr Clr Drug Dosing 85.7 ml/min Est GFR ( Amer) 91.6 Est GFR (Non-Af Amer) 79.0 BUN/Creatinine Ratio 21.5 H (10-20) Glucose 130 H (70-99) mg/dl POC Glucose 251 H 134 H (70-99) mg/dl Calcium 8.5 (8.5-10.1) mg/dl Phosphorus 3.0 (2.5-4.9) mg/dl Magnesium 1.8 (1.8-2.4) mg/dl 07/30/20 07/30/20 Range/Units 20:33 17:15 Sodium (136-145) mmol/L Potassium (3.5-5.1) mmol/L Chloride (98-107) mmol/L Carbon Dioxide (21-32) mmol/L Anion Gap (3-11) BUN (7-18) mg/dl Creatinine (0.6-1.4) mg/dl Est Cr Clr Drug Dosing ml/min Est GFR ( Amer) Est GFR (Non-Af Amer) BUN/Creatinine Ratio (10-20) Glucose (70-99) mg/dl POC Glucose 154 H 264 H (70-99) mg/dl Calcium (8.5-10.1) mg/dl Phosphorus (2.5-4.9) mg/dl Magnesium (1.8-2.4) mg/dl Medications Administered Current Inpatient Medications Albuterol (Albuterol Hfa 8 Gm Inhaler) 2 puffs INH Q4H PRN PRN Reason: Wheezing Stop: 08/09/20 22:28 Albuterol (Albut/Ipratrop 3mg/0.5mg Neb 3 Ml Vial) 3 ml INH QID PRN PRN Reason: Shortness Of Breath Or Wheezing Stop: 08/09/20 22:28 Last Admin: 07/31/20 00:39 Dose: 3 ml Documented by: Allopurinol (Allopurinol 100 Mg Tab) 200 mg PO DAILY KIRSTEN Stop: 08/24/20 08:59 Last Admin: 07/31/20 09:34 Dose: 200 mg Documented by: Calcium Carbonate (Calcium Carbonate 1,250 Mg/5 Ml Udc) 1,250 mg PO BID ON LICENSE OF [facility] Stop: 08/29/20 20:59 Last Admin: 07/31/20 09:32 Dose: 1,250 mg Documented by: Carbidopa/Levodopa (Carbidopa/Levodopa 25/100mg Tab) 0.5 tab PO TID ON LICENSE OF [facility] Stop: 08/23/20 20:59 Last Admin: 07/31/20 09:25 Dose: 0.5 tab Documented by: Dextrose (Dextrose 50% 50 Ml Syringe) 25 - 50 ml IV UD PRN; Protocol PRN Reason: Hypoglycemia Protocol Stop: 08/09/20 22:28 Enoxaparin Sodium (Enoxaparin 100 Mg/1ml Syr) 95 mg SQ Q12H ON LICENSE OF [facility] Stop: 08/21/20 20:59 Last Admin: 07/31/20 09:28 Dose: 95 mg Documented by: Gabapentin (Gabapentin 300 Mg Cap) 600 mg PO TID ON LICENSE OF [facility] Stop: 08/29/20 20:59 Last Admin: 07/31/20 10:26 Dose: 600 mg Documented by: Glucagon (Glucagon For Inj 1 Mg Vial) 1 mg SQ UD PRN; Protocol PRN Reason: Hypoglycemia Protocol Stop: 08/09/20 22:28 Glucose (Glucose 40% Gel 15 Gm Tube) 15 - 30 gm PO UD PRN; Protocol PRN Reason: Hypoglycemia Protocol Stop: 08/09/20 22:28 Promethazine HCl 12.5 mg/ (Sodium Chloride) 50.5 mls @ 204 mls/hr IV Q6H PRN PRN Reason: Nausea &/or Vomiting Stop: 08/19/20 17:41 Lorazepam (Ativan) 0.5 mg in 1 mls @ 0.5 mls/min IV Q8H PRN PRN Reason: Sedation/Anxiety Stop: 08/19/20 17:41 Levetiracetam 1,000 mg/ Sodium (Chloride) 110 mls @ 420 mls/hr IV Q12H ON LICENSE OF [facility] Stop: 08/23/20 20:59 Last Infusion: 07/31/20 10:28 Dose: Infused Documented by: Ampicillin Sodium/Sulbactam Sodium 1,500 mg/ Sodium Chloride 104 mls @ 200 mls/hr IV Q6H ON LICENSE OF [facility]; Protocol Stop: 08/01/20 17:59 Last Infusion: 07/31/20 06:31 Dose: Infused Documented by: Thiamine HCl 100 mg/ Syringe 10 mls @ 2 mls/min IV QAM ON LICENSE OF [facility] Stop: 08/26/20 08:59 Last Admin: 07/31/20 09:25 Dose: 2 mls/min Documented by: Lactated Ringer's (Lr) 1,000 mls @ 80 mls/hr IV .[id number] ON LICENSE OF [facility] Stop: 08/29/20 19:59 Last Admin: 07/31/20 09:22 Dose: 80 mls/hr Documented by: Influenza Virus Vaccine Quadrival (Do Not Administer Flu Vaccine) 1 ea N/A PRN PRN PRN Reason: Notification Stop: 08/19/20 17:41 Insulin Aspart (Insulin Aspart 100 Units/Ml 3 Ml Pen) 0 units SC ACHS ON LICENSE OF [facility] Stop: 08/29/20 09:14 Last Admin: 07/31/20 09:36 Dose: 1 units Documented by: Insulin Glargine (Insulin Glargine Solostar 100 Units/Ml 3 Ml Pen) 15 units SC BID ON LICENSE OF [facility] Stop: 08/29/20 20:59 Last Admin: 07/31/20 09:35 Dose: 15 units Documented by: Magnesium Oxide (Magnesium Oxide 400 Mg Tab) 400 mg PO BID ON LICENSE OF [facility] Stop: 08/29/20 20:59 Last Admin: 07/31/20 09:28 Dose: 400 mg Documented by: Metoclopramide HCl (Metoclopramide Hcl Inj 5 Mg/Ml 2 Ml Vial) 10 mg IV Q6H PRN PRN Reason: Nausea &/or Vomiting Stop: 08/19/20 17:41 Metoprolol Tartrate (Metoprolol Tartrate 1 Mg/Ml Vial) 5 mg IV Q5M PRN PRN Reason: Tachycardia Stop: 08/24/20 02:21 Last Admin: 07/25/20 02:36 Dose: 2.5 mg Documented by: Miscellaneous (Carbohydrates For Hypoglycemia ) 15 - 30 gm PO UD PRN PRN Reason: Hypoglycemia Protocol Stop: 08/09/20 22:28 Naloxone HCl (Naloxone Hcl 0.4 Mg/1 Ml Vial/Carp) 0.1 mg IV Q5M PRN; Protocol PRN Reason: Oversedation/Resp Depression Stop: 08/19/20 17:41 Last Admin: 07/21/20 21:28 Dose: 0.1 mg Documented by: Nutritional Formula (Peptamen Intense Vhp 1.0 [place]o 1,000 Ml Bag) 1,000 ml GT UD ON LICENSE OF [facility]; Protocol Stop: 08/25/20 15:29 Last Admin: 07/28/20 18:45 Dose: 1,000 ml Documented by: Ondansetron HCl (Ondansetron Inj 2 Mg/Ml 2 Ml Vial) 4 mg IV Q6H PRN PRN Reason: Nausea &/or Vomiting Stop: 08/19/20 17:41 Pneumococcal Polyvalent Vaccine (Do Not Administer Pneumococcal Vaccine) 1 ea N/A PRN PRN PRN Reason: Notification Stop: 08/19/20 17:41 Potassium Chloride (Potassium Chloride Pwd 20 Meq Pack) 20 meq PO BID ON LICENSE OF [facility] Stop: 08/29/20 20:59 Last Admin: 07/31/20 09:30 Dose: 20 meq Documented by: Prednisone (Prednisone 10 Mg Tablet) 10 mg PO DAILY ON LICENSE OF [facility] Stop: 08/24/20 08:59 Last Admin: 07/31/20 09:32 Dose: 10 mg Documented by: Sodium Biphosphate/Sodium Phosphate (Sod Phosphate/Sod Biphosphate Enema 132 Ml Btl) 132 ml OK ONE PRN PRN Reason: Constipation Stop: 08/19/20 17:41 Terbinafine HCl (Terbinafine Cr 30 Gm Tube) 1 appln EXT BID ON LICENSE OF [facility] Stop: 08/11/20 20:59 Last Admin: 07/31/20 09:31 Dose: 1 appln Documented by: Topiramate (Topiramate 100 Mg Tab) 100 mg PO BID ON LICENSE OF [facility] Stop: 08/23/20 20:59 Last Admin: 07/31/20 09:33 Dose: 100 mg Documented by: Triamcinolone Acetonide (Triamcinolone Acet 0.1% Oint 80 Gm Tube) 1 appln EXT Q12H PRN PRN Reason: pruritis Stop: 08/11/20 00:15 Last Admin: 07/16/20 08:04 Dose: 1 appln Documented by: Resident Activity Tracking Resident Involvement: Resident Care Provided Care Provided: Adult Hospital Medicine
[2020-07-31 08:27] LABS: BUN Creatinine Ratio 21.5 (10-20); Calcium 8.5 mg/dl (8.5-10.1); Creatinine Clr Calc Pharmacy 85.7 ml/min; Est GFR (African American) 91.6; Magnesium 1.8 mg/dl (1.8-2.4); Potassium 3.3 mmol/L (3.5-5.1)
--- NOTE | 2020-07-31 08:30 | Orthopedic Progress Note ---
Date of Service July 31, 2020 Assessment & Plan (1) Neurogenic claudication: Patient is orthopedically stable for discharge when medical team deems it appropriate. will continue with bedside physical therapy. Admission and Anticipated Discharge Date Admission Date: July 10, 2020 Supervising Physician Co-Signing Physician Notes Dr. Darius Agarwal Subjective Patient is postoperative day 11 lumbar decompression fusion. Making some steady progress. PEG tube has been removed. NG tube has been removed. Tolerating a liquid diet. Plan is for him to go to rehab upon discharge. Doing some bedside PT without issue. Review of Systems Review of Systems: All systems reviewed & are unremarkable except as noted in HPI & below Physical Exam Physical Exam: He is resting in bed. Alert and oriented x3. Lumbar dressing is clean dry and intact. Calves soft nontender bilaterally. Constitutional: WD/WN, vitals as above Eyes: normal visual [place] by confrontation ENMT: external ear and nose normal, oropharynx normal Neck: normal visual inspection Respiratory: normal respiratory effort Cardiovascular: Extremities: normal capillary refill Chest (Breasts): Chest: normal inspection of chest Gastrointestinal (Abdomen): Inspection/Auscultation: abdomen normal to inspection Musculoskeletal: Extremities: extremities normal to inspection and strength 5/5 throughout Skin: no rashes, warm and dry Neurologic: normal touch/pain/proprioception and moves all extremities Psychiatric: A+Ox3, euthymic affect Results & Data ([facility]) Vital Signs (Past 12 Hours) Vital Signs Temp Pulse Resp BP BP Pulse Ox 07/31/20 07:00 36.7 C 77 16 136/74 97 07/31/20 00:40 101 H 20 99 07/30/20 22:59 36.8 C 67 18 126/71 97
[2020-07-31] MEDS: LACTATED RINGER'S 1,000 ML IV SCH (09:22)
[2020-07-31] MEDS: THIAMINE HCL 100 MG in SYRINGE 9 ML IV SCH (09:25)
[2020-07-31] MEDS: CARBIDOPA/LEVODOPA 25/100MG TAB PO SCH ×3 (09:25→22:11)
[2020-07-31] MEDS: levETIRAcetam 1,000 MG in 0.9 % SODIUM CHLORIDE 100 ML IV SCH (09:27)
[2020-07-31] MEDS: ENOXAPARIN 100 MG/1ML SYR SQ SCH ×2 (09:28→22:10)
[2020-07-31] MEDS: MAGNESIUM OXIDE 400 MG TAB PO SCH ×2 (09:28→22:10)
[2020-07-31] MEDS: POTASSIUM CHLORIDE PWD 20 MEQ PACK PO SCH ×2 (09:30→22:10)
[2020-07-31] MEDS: TERBINAFINE CR 30 GM TUBE EXT SCH ×2 (09:31→22:16)
[2020-07-31] MEDS: predniSONE 10 MG TABLET PO SCH (09:32)
[2020-07-31] MEDS: CALCIUM CARBONATE 1,250 MG/5 ML UDC PO SCH ×2 (09:32→22:09)
[2020-07-31] MEDS: TOPIRAMATE 100 MG TAB PO SCH ×2 (09:33→22:11)
[2020-07-31] MEDS: allopurinoL 100 MG TAB PO SCH (09:34)
[2020-07-31] MEDS: INSULIN GLARGINE SOLOSTAR 100 UNITS/ML 3 ML PEN SC SCH ×2 (09:35→22:13)
[2020-07-31] MEDS: INSULIN ASPART 100 UNITS/ML 3 ML PEN SC SCH ×4 (09:36→22:14)
[2020-07-31] MEDS: GABAPENTIN 300 MG CAP PO SCH ×3 (10:26→22:12)
--- NOTE | 2020-07-31 15:57 | Billing Data ---
Date of Service July 31, 2020 Coding Level of Care Code 80852 Subseq Hosp Care Lvl 3
[2020-07-31] MEDS ORDERED: Nursing to Pharmacy Communication SCH (21:00)
[2020-07-31] MEDS ORDERED: levETIRAcetam ORAL SOLN 100MG/ML PO SCH (21:15)
[2020-07-31] MEDS: levETIRAcetam 500 MG TAB PO SCH (22:31)
[2020-08-01] MEDS: AMPICILLIN/SULBACTAM SOD 1,500 MG in 0.9 % SODIUM CHLORIDE 100 ML IV SCH ×3 (00:38→11:24)
--- NOTE | 2020-08-01 08:04 | Hospitalist Progress Note ---
Date of Service August 01, 2020 Assessment & Plan (1) Aspiration pneumonia: 75yo M with ILD (baseline 2L NC at nighttime), parkinson's, CKD3, IDDM2, paroxysmal afib, AV valve replacement, HLD, lumbar spinal stenosis p/w worsening dyspnea, weakness, falls, dysphagia, malnutrition, and encephalopathy. Stable, slowly improving. Aspiration pneumonia, ILD -maintaining satisfactory saturations on room air; steady improvement continues -DC'd Unasyn today -appreciate ongoing speech therapy recommendations -Pured diet with honey thick liquids, strict aspiration precautions -continue chronic prednisone, continue albuterol Dysphagia -patient prefers a more comfort-based approach; has opted to stick with honey- thick pureed as opposed to NG/PEG; tolerating this diet well so far and can take meds either crushed or placed in pudding -Patient meant goal of 60 ounce of liquid yesterday, recommended that he continue this goal daily -no plan to replace NG tube Malnutrition, electrolyte abnormalities -07/30: hypophosphatemia resolved; mild hypokalemia and hypocalcemia persist, new mild hypomagnesemia - repleting as below: -potassium chloride 20mEq bid -magnesium oxide 400mg bid -calcium carbonate 1250mg bid -Daily BMP Atrial fibrillation on chronic eliquis -07/25: episode asymptomatic afib with RVR to the 140s - improved to 90-100s with 2.5mg lopressor -continue to monitor -holding eliquis, continue lovenox History of AV valve replacement -AC as above Neurogenic claudication s/p spine surgery -reassuring clinical picture per orthopedic consult; appreciate ongoing recommendations -cleared from an orthopedic standpoint -continue gabapentin, continue PT/OT -not requiring opioid pain meds Encephalopathy -resolved; was likely 2/2 aspiration pneumonia, hospitalization, tube feeds, PD -continue to monitor Parkinson's -continue carbidopa/levodopa IDDM2 -holding trulicity -glargine adjusted on 07/30 to 15u bid (from 20u bid) as transition from tube feeds to PO resulted in slightly lower overall intake -CF adjusted to 25, CHO adjusted to 8 per glycemic consult recommendations -q4 ISS frequency changed to achs -continue to monitor CKD3 -BUN/Cr reassuring and stable; continue to monitor Tinea cruris -continue terbinafine cream FENGI: formula NG feeds as above DVT ppx: lovenox Isolation: none Consults: palliative care, nutrition, orthopedic surgery Code status: DNR/DNI Dispo: pending pt/ot and placement Admission and Anticipated Discharge Date Admission Date: July 10, 2020 Supervising Physician Co-Signing Physician Notes I supervised the care of this patient with Delgado Dong MD. I evaluated the patient independently of him. We discussed the patient's care, and it is as noted in his note: Mr. Bradford is a 75-year-old gentleman with a history of parkinsonism and diabetes who presented for failure to thrive at home. This unfortunate gentleman has a history of pseudoseizures and frequent falls at home. He presented with aspiration pneumonia. He has wrapped up his course of antibiotics and we are looking for suitable placement for him. Subjective Patient lying in bed this morning in no acute distress. Patient is eating better, tolerating his diet better, and maintaining adequate oral hydration. No acute events overnight, patient continues to remain stable. Acute concerns relate to discharge. All questions answered. Physical Exam Physical Exam: General: Lying in bed comfortably no acute distress HEENT: Normocephalic atraumatic Neck: Normal to visual inspection Cardiac: Regular rate and rhythm I did not appreciate murmurs rubs or gallops Respiratory: Bilateral lower lobe rhonchi which clear with coughing otherwise clear to auscultation bilaterally with symmetrical chest expansion Neuro: Alert and oriented x4 Results & Data Results & Data ([facility]) Vital Signs (Past 12 Hours) Vital Signs Temp Pulse Resp BP BP Pulse Ox 08/01/20 07:29 36.7 C 63 16 131/74 96 07/31/20 22:33 36.8 C 67 16 139/70 99 Laboratory Results 08/01/20 08/01/20 07/31/20 Range/Units 12:05 08:08 20:33 POC Glucose 213 H 145 H 216 H (70-99) mg/dl 07/31/20 Range/Units 17:07 POC Glucose 294 H (70-99) mg/dl Medications Administered Current Inpatient Medications Acetaminophen (Acetaminophen 500 Mg Tab) 1,000 mg PO Q8H PRN PRN Reason: Pain Stop: 08/31/20 11:03 Last Admin: 08/01/20 11:24 Dose: 1,000 mg Documented by: Albuterol (Albuterol Hfa 8 Gm Inhaler) 2 puffs INH Q4H PRN PRN Reason: Wheezing Stop: 08/09/20 22:28 Albuterol (Albut/Ipratrop 3mg/0.5mg Neb 3 Ml Vial) 3 ml INH QID PRN PRN Reason: Shortness Of Breath Or Wheezing Stop: 08/09/20 22:28 Last Admin: 07/31/20 00:39 Dose: 3 ml Documented by: Allopurinol (Allopurinol 100 Mg Tab) 200 mg PO DAILY [facility] Stop: 08/24/20 08:59 Last Admin: 08/01/20 09:18 Dose: 200 mg Documented by: Calcium Carbonate (Calcium Carbonate 1,250 Mg/5 Ml Udc) 1,250 mg PO BID [facility] Stop: 08/29/20 20:59 Last Admin: 08/01/20 09:18 Dose: 1,250 mg Documented by: Carbidopa/Levodopa (Carbidopa/Levodopa 25/100mg Tab) 0.5 tab PO TID [facility] Stop: 08/23/20 20:59 Last Admin: 08/01/20 09:17 Dose: 0.5 tab Documented by: Dextrose (Dextrose 50% 50 Ml Syringe) 25 - 50 ml IV UD PRN; Protocol PRN Reason: Hypoglycemia Protocol Stop: 08/09/20 22:28 Enoxaparin Sodium (Enoxaparin 100 Mg/1ml Syr) 95 mg SQ Q12H [facility] Stop: 08/21/20 20:59 Last Admin: 08/01/20 09:19 Dose: 95 mg Documented by: Gabapentin (Gabapentin 300 Mg Cap) 600 mg PO TID [facility] Stop: 08/29/20 20:59 Last Admin: 08/01/20 09:27 Dose: 600 mg Documented by: Glucagon (Glucagon For Inj 1 Mg Vial) 1 mg SQ UD PRN; Protocol PRN Reason: Hypoglycemia Protocol Stop: 08/09/20 22:28 Glucose (Glucose 40% Gel 15 Gm Tube) 15 - 30 gm PO UD PRN; Protocol PRN Reason: Hypoglycemia Protocol Stop: 08/09/20 22:28 Promethazine HCl 12.5 mg/ (Sodium Chloride) 50.5 mls @ 204 mls/hr IV Q6H PRN PRN Reason: Nausea &/or Vomiting Stop: 08/19/20 17:41 Lorazepam (Ativan) 0.5 mg in 1 mls @ 0.5 mls/min IV Q8H PRN PRN Reason: Sedation/Anxiety Stop: 08/19/20 17:41 Ampicillin Sodium/Sulbactam Sodium 1,500 mg/ Sodium Chloride 104 mls @ 200 ml s/hr IV Q6H [facility]; Protocol Stop: 08/01/20 17:59 Last Infusion: 08/01/20 12:13 Dose: Infused Documented by: Thiamine HCl 100 mg/ Syringe 10 mls @ 2 mls/min IV QAM [facility] Stop: 08/26/20 08:59 Last Admin: 08/01/20 09:16 Dose: 2 mls/min Documented by: Influenza Virus Vaccine Quadrival (Do Not Administer Flu Vaccine) 1 ea N/A PRN PRN PRN Reason: Notification Stop: 08/19/20 17:41 Insulin Aspart (Insulin Aspart 100 Units/Ml 3 Ml Pen) 0 units SC ACHS [facility] Stop: 08/29/20 09:14 Last Admin: 08/01/20 09:30 Dose: 4 units Documented by: Insulin Glargine (Insulin Glargine Solostar 100 Units/Ml 3 Ml Pen) 15 units SC BID [facility] Stop: 08/29/20 20:59 Last Admin: 08/01/20 09:29 Dose: 15 units Documented by: Levetiracetam (Levetiracetam 500 Mg Tab) 1,000 mg PO Q12 [facility] Stop: 08/30/20 20:59 Last Admin: 08/01/20 09:16 Dose: 1,000 mg Documented by: Magnesium Oxide (Magnesium Oxide 400 Mg Tab) 400 mg PO BID [facility] Stop: 08/29/20 20:59 Last Admin: 08/01/20 09:18 Dose: 400 mg Documented by: Metoclopramide HCl (Metoclopramide Hcl Inj 5 Mg/Ml 2 Ml Vial) 10 mg IV Q6H PRN PRN Reason: Nausea &/or Vomiting Stop: 08/19/20 17:41 Metoprolol Tartrate (Metoprolol Tartrate 1 Mg/Ml Vial) 5 mg IV Q5M PRN PRN Reason: Tachycardia Stop: 08/24/20 02:21 Last Admin: 07/25/20 02:36 Dose: 2.5 mg Documented by: Miscellaneous (Carbohydrates For Hypoglycemia ) 15 - 30 gm PO UD PRN PRN Reason: Hypoglycemia Protocol Stop: 08/09/20 22:28 Naloxone HCl (Naloxone Hcl 0.4 Mg/1 Ml Vial/Carp) 0.1 mg IV Q5M PRN; Protocol PRN Reason: Oversedation/Resp Depression Stop: 08/19/20 17:41 Last Admin: 07/21/20 21:28 Dose: 0.1 mg Documented by: Nutritional Formula (Peptamen Intense Vhp 1.0 [place] 1,000 Ml Bag) 1,000 ml GT UD KIRSTEN; Protocol Stop: 08/25/20 15:29 Last Admin: 07/28/20 18:45 Dose: 1,000 ml Documented by: Ondansetron HCl (Ondansetron Inj 2 Mg/Ml 2 Ml Vial) 4 mg IV Q6H PRN PRN Reason: Nausea &/or Vomiting Stop: 08/19/20 17:41 Pneumococcal Polyvalent Vaccine (Do Not Administer Pneumococcal Vaccine) 1 ea N/A PRN PRN PRN Reason: Notification Stop: 08/19/20 17:41 Potassium Chloride (Potassium Chloride Pwd 20 Meq Pack) 20 meq PO BID [facility] Stop: 08/29/20 20:59 Last Admin: 08/01/20 09:20 Dose: 20 meq Documented by: Prednisone (Prednisone 10 Mg Tablet) 10 mg PO DAILY [facility] Stop: 08/24/20 08:59 Last Admin: 08/01/20 09:20 Dose: 10 mg Documented by: Sodium Biphosphate/Sodium Phosphate (Sod Phosphate/Sod Biphosphate Enema 132 Ml Btl) 132 ml FL ONE PRN PRN Reason: Constipation Stop: 08/19/20 17:41 Terbinafine HCl (Terbinafine Cr 30 Gm Tube) 1 appln EXT BID [facility] Stop: 08/11/20 20:59 Last Admin: 08/01/20 09:27 Dose: 1 appln Documented by: Topiramate (Topiramate 100 Mg Tab) 100 mg PO BID [facility] Stop: 08/23/20 20:59 Last Admin: 08/01/20 09:18 Dose: 100 mg Documented by: Triamcinolone Acetonide (Triamcinolone Acet 0.1% Oint 80 Gm Tube) 1 appln EXT Q12H PRN PRN Reason: pruritis Stop: 08/11/20 00:15 Last Admin: 07/16/20 08:04 Dose: 1 appln Documented by: Resident Activity Tracking Resident Involvement: Resident Care Provided Care Provided: Adult Hospital Medicine
[2020-08-01] MEDS: levETIRAcetam 500 MG TAB PO SCH ×2 (09:16→20:45)
[2020-08-01] MEDS: THIAMINE HCL 100 MG in SYRINGE 9 ML IV SCH (09:16)
[2020-08-01] MEDS: CARBIDOPA/LEVODOPA 25/100MG TAB PO SCH ×3 (09:17→20:44)
[2020-08-01] MEDS: CALCIUM CARBONATE 1,250 MG/5 ML UDC PO SCH ×2 (09:18→20:44)
[2020-08-01] MEDS: MAGNESIUM OXIDE 400 MG TAB PO SCH ×2 (09:18→20:46)
[2020-08-01] MEDS: TOPIRAMATE 100 MG TAB PO SCH ×2 (09:18→20:56)
[2020-08-01] MEDS: allopurinoL 100 MG TAB PO SCH (09:18)
[2020-08-01] MEDS: ENOXAPARIN 100 MG/1ML SYR SQ SCH ×2 (09:19→20:45)
[2020-08-01] MEDS: predniSONE 10 MG TABLET PO SCH (09:20)
[2020-08-01] MEDS: POTASSIUM CHLORIDE PWD 20 MEQ PACK PO SCH ×2 (09:20→20:45)
[2020-08-01] MEDS: GABAPENTIN 300 MG CAP PO SCH ×3 (09:27→20:43)
[2020-08-01] MEDS: TERBINAFINE CR 30 GM TUBE EXT SCH ×2 (09:27→20:45)
[2020-08-01] MEDS: INSULIN GLARGINE SOLOSTAR 100 UNITS/ML 3 ML PEN SC SCH ×2 (09:29→20:46)
[2020-08-01] MEDS: INSULIN ASPART 100 UNITS/ML 3 ML PEN SC SCH ×4 (09:30→20:53)
[2020-08-01] MEDS: ACETAMINOPHEN 500 MG TAB PO PRN ×2 (11:24→20:57)
[2020-08-01] MEDS: ALBUT/IPRATROP 3MG/0.5MG NEB 3 ML VIAL INH PRN (15:09)
--- NOTE | 2020-08-01 16:49 | Billing Data ---
Date of Service August 01, 2020 Coding Level of Care Code 35537 Subseq Hosp Care Lvl 2
[2020-08-02 06:14] LABS: Basophils # (auto) 0.01 K/uL (0-0.2); Basophils % (auto) 0.3 %; Eosinophils # (auto) 0.16 K/uL (0-0.5); Eosinophils % (auto) 4.7 %; Hematocrit (blood only) 28.3 % (42-52); Immature Granulocytes # (auto) 0.04 K/uL (0.00-0.02); Immature Granulocytes % (auto) 1.2 %; Lymphocytes # (auto) 0.86 K/uL (1.2-3.4); Lymphocytes % (auto) 25.1 %; Mean Corpuscular Hemoglobin 27.5 pg (25-34); Mean Corpuscular Hgb Conc 31.8 g/dL (32-36); Mean Corpuscular Volume 86.5 fL (80-100); Monocytes # (auto) 0.22 K/uL (0.11-0.59); Monocytes % (auto) 6.4 %; Neutrophils # (auto) 2.14 K/uL (1.4-6.5); Neutrophils % (auto) 62.3 %; Platelet Count 262 K/uL (130-400); RDW Coefficient of Variation 16.1 % (11.5-14.5); RDW Standard Deviation 51.5 fL (36.4-46.3); Red Blood Count 3.27 M/uL (4.7-6.1); White Blood Count 3.43 K/uL (4.8-10.8)
[2020-08-02 06:53] LABS: BUN Creatinine Ratio 24.2 (10-20); Calcium 8.9 mg/dl (8.5-10.1); Creatinine Clr Calc Pharmacy 79.8 ml/min; Est GFR (Non-African American) 73.3; Potassium 3.9 mmol/L (3.5-5.1)
[2020-08-02] MEDS: THIAMINE HCL 100 MG in SYRINGE 9 ML IV SCH (08:29)
[2020-08-02] MEDS: CALCIUM CARBONATE 1,250 MG/5 ML UDC PO SCH ×2 (08:29→21:20)
[2020-08-02] MEDS: ENOXAPARIN 100 MG/1ML SYR SQ SCH ×2 (08:30→21:21)
[2020-08-02] MEDS: TERBINAFINE CR 30 GM TUBE EXT SCH ×2 (08:30→21:21)
[2020-08-02] MEDS: predniSONE 10 MG TABLET PO SCH (08:31)
[2020-08-02] MEDS: TOPIRAMATE 100 MG TAB PO SCH ×2 (08:31→21:19)
[2020-08-02] MEDS: levETIRAcetam 500 MG TAB PO SCH ×2 (08:31→21:20)
[2020-08-02] MEDS: MAGNESIUM OXIDE 400 MG TAB PO SCH ×2 (08:31→21:20)
[2020-08-02] MEDS: POTASSIUM CHLORIDE PWD 20 MEQ PACK PO SCH ×2 (08:31→21:20)
[2020-08-02] MEDS: allopurinoL 100 MG TAB PO SCH (08:32)
[2020-08-02] MEDS: CARBIDOPA/LEVODOPA 25/100MG TAB PO SCH ×3 (08:32→21:19)
[2020-08-02] MEDS: GABAPENTIN 300 MG CAP PO SCH ×3 (08:33→21:18)
[2020-08-02] MEDS: INSULIN GLARGINE SOLOSTAR 100 UNITS/ML 3 ML PEN SC SCH ×2 (08:50→21:13)
[2020-08-02] MEDS: INSULIN ASPART 100 UNITS/ML 3 ML PEN SC SCH ×4 (08:50→21:15)
--- NOTE | 2020-08-02 17:14 | Hospitalist Progress Note ---
Date of Service August 02, 2020 Assessment & Plan (1) Aspiration pneumonia: 75yo M with ILD (baseline 2L NC at nighttime), parkinson's, CKD3, IDDM2, paroxysmal afib, AV valve replacement, HLD, lumbar spinal stenosis p/w worsening dyspnea, weakness, falls, dysphagia, malnutrition, and encephalopathy. Stable, slowly improving. Aspiration pneumonia, Chronic ILD -finished abx - unasyn discontinued 08/01 -appreciate ongoing speech therapy recommendations -pured diet with honey thick liquids, strict aspiration precautions -continue chronic prednisone, continue albuterol Swallowing dysfunction -patient prefers a more comfort-based approach; has opted to stick with honey- thick pureed as opposed to NG/PEG; -tolerating this diet well so far and can take meds either crushed or placed in pudding -continue with 60oz/day liquid intake goal -no plan to replace NG tube Malnutrition, electrolyte abnormalities -07/30: hypophosphatemia and hypokalemia resolved -continue electrolyte supplementation as below: -potassium chloride 20mEq bid -magnesium oxide 400mg bid -calcium carbonate 1250mg bid -daily BMP Atrial fibrillation on chronic eliquis -07/25: episode asymptomatic afib with RVR to the 140s - improved to 90-100s with 2.5mg lopressor -continue to monitor -holding eliquis due to swallowing dysfunction initially, continue lovenox - in am. History of AV valve replacement -AC as above Neurogenic claudication s/p spine surgery -reassuring clinical picture per orthopedic consult -cleared from an orthopedic standpoint -continue gabapentin, continue PT/OT -not requiring opioid pain meds Encephalopathy -resolved; was likely 2/2 aspiration pneumonia, hospitalization, tube feeds, -continue to monitor Parkinson's -continue carbidopa/levodopa IDDM2 -holding trulicity -glargine adjusted on 07/30 to 15u bid (from 20u bid) as transition from tube feeds to PO resulted in slightly lower overall intake -CF adjusted to 25, CHO adjusted to 8 per glycemic consult recommendations -ISS qac -continue to monitor CKD3 -BUN/Cr reassuring and stable; continue to monitor Tinea cruris -continue terbinafine cream Dispo -waiting to hear back from [facility]; if patient is denied, next choice is [facility] -CM following ANGELLA: honey-thick pureed diet as above DVT ppx: lovenox Isolation: none Consults: palliative care, nutrition, orthopedic surgery (signed off) Code status: DNR/DNI Dispo: pending PT/OT and placement Admission and Anticipated Discharge Date Admission Date: July 10, 2020 Supervising Physician Co-Signing Physician Notes Resident Physician Supervision Note: I independently interviewed and examined the patient and verified the peña history and physical, reviewed labs and image studies, discussed the case with the resident Dr. Farrell and agree with the findings and care plan. Subjective Patient seen at bedside this morning. Feels well and has no complaints. Denies CP, SOB, abdominal pain, nausea, vomiting, lightheadedness, dizziness. Fatigue continues but is improving. Patient is eager for discharge. No questions or concerns at this time. Review of Systems Review of Systems: See HPI Physical Exam Physical Exam: Awake, alert, laying in bed, cooperative, interactive NCAT, MMM CV: regular rate, regular rhythm Resp: mild rales throughout, no increased WOB Neuro: no focal deficits Psych: euthymic, good mood, logical linear thought process Results & Data Results & Data ([facility]) Vital Signs (Past 12 Hours) Vital Signs Temp Pulse Resp BP BP Pulse Ox 08/02/20 15:02 36.8 C 69 18 134/70 99 08/02/20 06:58 36.7 C 67 18 148/68 H 95 Resident Activity Tracking Resident Involvement: Resident Care Provided Care Provided: Adult Hospital Medicine
[2020-08-02] MEDS: ACETAMINOPHEN 500 MG TAB PO PRN (21:42)
[2020-08-03 06:45] LABS: BUN Creatinine Ratio 24.1 (10-20); Calcium 8.5 mg/dl (8.5-10.1); Creatinine Clr Calc Pharmacy 83.8 ml/min; Est GFR (African American) 90.4; Magnesium 1.9 mg/dl (1.8-2.4); Potassium 3.9 mmol/L (3.5-5.1)
[2020-08-03 06:46] LABS: Phosphorus 2.9 mg/dl (2.5-4.9)
[2020-08-03] MEDS: predniSONE 10 MG TABLET PO SCH (07:45)
[2020-08-03] MEDS: allopurinoL 100 MG TAB PO SCH (07:45)
[2020-08-03] MEDS: TOPIRAMATE 100 MG TAB PO SCH ×2 (07:45→20:42)
[2020-08-03] MEDS: CARBIDOPA/LEVODOPA 25/100MG TAB PO SCH ×3 (07:46→20:42)
[2020-08-03] MEDS: MAGNESIUM OXIDE 400 MG TAB PO SCH ×2 (07:47→20:43)
[2020-08-03] MEDS: GABAPENTIN 300 MG CAP PO SCH ×3 (07:48→20:43)
[2020-08-03] MEDS: levETIRAcetam 500 MG TAB PO SCH ×2 (07:48→20:42)
[2020-08-03] MEDS: POTASSIUM CHLORIDE PWD 20 MEQ PACK PO SCH ×2 (07:49→20:43)
[2020-08-03] MEDS: THIAMINE HCL 100 MG in SYRINGE 9 ML IV SCH (07:49)
[2020-08-03] MEDS: CALCIUM CARBONATE 1,250 MG/5 ML UDC PO SCH ×2 (07:50→20:43)
[2020-08-03] MEDS: ENOXAPARIN 100 MG/1ML SYR SQ SCH ×2 (07:51→20:42)
[2020-08-03] MEDS: TERBINAFINE CR 30 GM TUBE EXT SCH ×2 (07:56→20:43)
[2020-08-03] MEDS: INSULIN ASPART 100 UNITS/ML 3 ML PEN SC SCH ×4 (09:05→21:19)
[2020-08-03] MEDS: INSULIN GLARGINE SOLOSTAR 100 UNITS/ML 3 ML PEN SC SCH ×2 (09:08→21:18)
[2020-08-03] MEDS: ALBUT/IPRATROP 3MG/0.5MG NEB 3 ML VIAL INH PRN (11:27)
--- NOTE | 2020-08-03 20:11 | Hospitalist Progress Note ---
Date of Service August 03, 2020 Assessment & Plan (1) Aspiration pneumonia: 75yo M with ILD (baseline 2L NC at nighttime), parkinson's, CKD3, IDDM2, paroxysmal afib, AV valve replacement, HLD, lumbar spinal stenosis p/w worsening dyspnea, weakness, falls, dysphagia, malnutrition, and encephalopathy. Pneumonia has resolved, gradually improving from a deconditioning standpoint. Aspiration pneumonia, Chronic ILD -finished abx - unasyn discontinued 08/01 -significant improvement on auscultation today -appreciate ongoing speech therapy recommendations -pured diet with honey thick liquids, strict aspiration precautions -continue chronic prednisone, continue albuterol Swallowing dysfunction -patient prefers a more comfort-based approach; has opted to stick with honey- thick pureed as opposed to NG/PEG; -tolerating this diet well so far and can take meds either crushed or placed in pudding -continue with 60oz/day liquid intake goal -no plan to replace NG tube Malnutrition, electrolyte abnormalities -07/30: hypophosphatemia and hypokalemia resolved -continue electrolyte supplementation as below: -potassium chloride 20mEq bid -magnesium oxide 400mg bid -calcium carbonate 1250mg bid -daily BMP Atrial fibrillation on chronic eliquis -07/25: episode asymptomatic afib with RVR to the 140s - improved to 90-100s with 2.5mg lopressor -continue to monitor -holding eliquis due to swallowing dysfunction initially, continue lovenox. History of AV valve replacement -AC as above Neurogenic claudication s/p spine surgery -reassuring clinical picture per orthopedic consult -cleared from an orthopedic standpoint -continue gabapentin, continue PT/OT -not requiring opioid pain meds Encephalopathy -resolved; was likely 2/2 aspiration pneumonia, hospitalization, tube feeds, -continue to monitor Parkinson's -continue carbidopa/levodopa IDDM2 -holding trulicity -glargine adjusted on 07/30 to 15u bid (from 20u bid) as transition from tube feeds to PO resulted in slightly lower overall intake -CF adjusted to 25, CHO adjusted to 8 per glycemic consult recommendations; appreciate ongoing recommendations -ISS qac -continue to monitor CKD3 -BUN/Cr reassuring and stable; continue to monitor Tinea cruris -continue terbinafine cream Dispo -SNF denied after p2p today; CM continuing their search, appreciate ongoing recommendations DEVII: honey-thick pureed diet as above DVT ppx: lovenox Isolation: none Consults: palliative care, nutrition, orthopedic surgery (signed off) Code status: DNR/DNI Dispo: pending PT/OT and placement Admission and Anticipated Discharge Date Admission Date: July 10, 2020 Supervising Physician Co-Signing Physician Notes Resident Physician Supervision Note: I independently interviewed and examined the patient and verified the peña history and physical, reviewed labs and image studies, discussed the case with the resident Dr. Farrell and agree with the findings and care plan. Subjective Patient seen at bedside this morning. He was sitting up in bed, engaged in exercises with the physical therapiest. Has no new complaints today. Denies CP, SOB, abdominal pain, nausea, vomiting, lightheadedness, dizziness. Patient is motivated by his returning strength. Still awaiting placement. Review of Systems Review of Systems: See HPI Physical Exam Physical Exam: Awake, alert, laying in bed, cooperative, interactive NCAT, MMM CV: regular rate, regular rhythm Resp: lungs with very faint rales in lung bases, clear to auscultation otherwise, no increased WOB Neuro: no focal deficits Psych: euthymic Results & Data Results & Data ([facility]) Vital Signs (Past 12 Hours) Vital Signs Temp Pulse Resp BP Pulse Ox 08/03/20 14:54 36.6 C 72 16 110/70 99 08/03/20 11:27 59 L 20 97 Resident Activity Tracking Resident Involvement: Resident Care Provided Care Provided: Adult Hospital Medicine
[2020-08-04 07:09] LABS: BUN Creatinine Ratio 23.1 (10-20); Calcium 8.6 mg/dl (8.5-10.1); Creatinine Clr Calc Pharmacy 79.6 ml/min; Est GFR (Non-African American) 73.3; Phosphorus 3.1 mg/dl (2.5-4.9); Potassium 3.8 mmol/L (3.5-5.1)
[2020-08-04] MEDS: INSULIN ASPART 100 UNITS/ML 3 ML PEN SC SCH ×4 (08:45→20:38)
[2020-08-04] MEDS: INSULIN GLARGINE SOLOSTAR 100 UNITS/ML 3 ML PEN SC SCH ×2 (08:47→20:39)
[2020-08-04] MEDS: CARBIDOPA/LEVODOPA 25/100MG TAB PO SCH ×3 (09:06→20:30)
[2020-08-04] MEDS: CALCIUM CARBONATE 1,250 MG/5 ML UDC PO SCH ×2 (09:08→20:30)
[2020-08-04] MEDS: POTASSIUM CHLORIDE PWD 20 MEQ PACK PO SCH ×2 (09:08→20:28)
[2020-08-04] MEDS: MAGNESIUM OXIDE 400 MG TAB PO SCH ×2 (09:08→20:31)
[2020-08-04] MEDS: TOPIRAMATE 100 MG TAB PO SCH ×2 (09:08→20:31)
[2020-08-04] MEDS: allopurinoL 100 MG TAB PO SCH (09:08)
[2020-08-04] MEDS: predniSONE 10 MG TABLET PO SCH (09:09)
[2020-08-04] MEDS: levETIRAcetam 500 MG TAB PO SCH ×2 (09:09→20:30)
[2020-08-04] MEDS: GABAPENTIN 300 MG CAP PO SCH ×3 (09:10→20:27)
[2020-08-04] MEDS: ENOXAPARIN 100 MG/1ML SYR SQ SCH ×2 (09:10→20:31)
[2020-08-04] MEDS: TERBINAFINE CR 30 GM TUBE EXT SCH ×2 (09:11→20:31)
--- NOTE | 2020-08-04 09:54 | Hospitalist Progress Note ---
Date of Service August 04, 2020 Assessment & Plan (1) Aspiration pneumonia: 75yo M with ILD (baseline 2L NC at nighttime), parkinson's, CKD3, IDDM2, paroxysmal afib, AV valve replacement, HLD, lumbar spinal stenosis p/w worsening dyspnea, weakness, falls, dysphagia, malnutrition, and encephalopathy. Pneumonia has resolved, gradually improving from a deconditioning standpoint. Aspiration pneumonia, Chronic ILD -finished abx - unasyn discontinued 08/01 -lungs CTABL today (08/04), improved from yesterday -appreciate ongoing speech therapy recommendations -pured diet with honey thick liquids, strict aspiration precautions -continue chronic prednisone, continue albuterol Swallowing dysfunction -patient prefers a more comfort-based approach; has opted to stick with honey- thick pureed as opposed to NG/PEG; -tolerating this diet well so far and can take meds either crushed or placed in pudding -continue with 60oz/day liquid intake goal -no plan to replace NG tube Malnutrition, electrolyte abnormalities -07/30: hypophosphatemia and hypokalemia resolved -continue electrolyte supplementation as below: -potassium chloride 20mEq bid -magnesium oxide 400mg bid -calcium carbonate 1250mg bid -08/04: electrolyte abnormalities resolved, continue repletion for 1-2 more days -daily BMP, mag, phos Atrial fibrillation on chronic eliquis -07/25: episode asymptomatic afib with RVR to the 140s - improved to 90-100s with 2.5mg lopressor -continue to monitor -holding eliquis due to swallowing dysfunction initially, continue lovenox History of AV valve replacement -No concerns. Neurogenic claudication s/p spine surgery -reassuring clinical picture per orthopedic consult -cleared from an orthopedic standpoint -continue gabapentin, continue PT/OT -not requiring opioid pain meds Encephalopathy -resolved; was likely 2/2 aspiration pneumonia, hospitalization, tube feeds, -continue to monitor Parkinson's -continue carbidopa/levodopa IDDM2 -holding trulicity -glargine adjusted on 07/30 to 15u bid (from 20u bid) as transition from tube feed s to PO resulted in slightly lower overall intake -CF adjusted to 25, CHO adjusted to 8 per glycemic consult recommendations; appreciate ongoing recommendations -ISS qac -continue to monitor CKD3 -BUN/Cr reassuring and stable; continue to monitor Tinea cruris -continue terbinafine cream Dispo -08/03: SNF denied after [id number] today -08/04: CM continuing their search, appreciate ongoing recommendations FENGI: honey-thick pureed diet as above DVT ppx: lovenox Isolation: none Consults: palliative care, nutrition, orthopedic surgery (signed off) Code status: DNR/DNI Dispo: pending PT/OT and placement Admission and Anticipated Discharge Date Admission Date: July 10, 2020 Supervising Physician Co-Signing Physician Notes Resident Physician Supervision Note: I independently interviewed and examined the patient and verified the peña history and physical, reviewed labs and image studies, discussed the case with the resident Dr. Farrell and agree with the findings and care plan. Subjective Patient seen at bedside this morning. He was sitting up in bed, talking with the RN, in a good mood. Feels well, has no new complaints today. Denies CP, SOB, abdominal pain, nausea, vomiting, lightheadedness, dizziness, or palpitations. Endorses continued back pain from his operation, but not worse than before. Still pending placement. Review of Systems Review of Systems: See HPI Physical Exam Physical Exam: Awake, alert, sitting up in bed NCAT, MMM CV: regular rate, regular rhythm Resp: lungs CTABL Neuro: no focal deficits Psych: euthymic, interactive, pleasant Results & Data Results & Data ([facility]) Vital Signs (Past 12 Hours) Vital Signs Temp Pulse Resp BP Pulse Ox 08/04/20 07:06 36.9 C 79 16 127/75 96 08/03/20 23:12 36.6 C 65 20 125/70 95 Resident Activity Tracking Resident Involvement: Resident Care Provided Care Provided: Adult Hospital Medicine
[2020-08-04] MEDS: ACETAMINOPHEN 500 MG TAB PO PRN ×2 (10:01→20:27)
--- NOTE | 2020-08-04 11:44 | Palliative Care Progress Note ---
Date of Service August 04, 2020 Assessment & Plan (1) Palliative care encounter: Xavi has had significant improvement. Plan is for discharge to SNF for continued rehab, including speech therapy for dysphagia. Xavi has completed a POLST form in the past that he has at home but wanted to update that. We reviewed POLST and completed based on his wishes, which include, DNR/DNI, limited interventions, determine antibiotic use at the time and trial of hydration and nutrition, including possible short term NG feedings but not PEG. I spoke with Eric and reviewed this with him. He agrees this seems consistent with Xavi's current goals. (2) Weakness: (3) Dysphagia: Admission and Anticipated Discharge Date Admission Date: July 10, 2020 Subjective Doing well. Animated. Walking with walker and PT. Tolerating thickened liquids and pureed diet. Having some incisional pain. Review of Systems Review of Systems: [place] Symptom Assessment Scale Pain 1/3 Dyspnea 0/3 Anxiety 0/3 Fatigue 1/3 Nausea 0/3 Drowsiness 0/3 Palliative Performance Score 50% Physical Exam Constitutional: cooperative; no acute distress Neck: normal visual inspection Respiratory: normal respiratory effort; no labored breathing Musculoskeletal: ambulating with walker Neurologic: no focal motor deficits Psychiatric: A+Ox3, euthymic affect Results & Data ([facility]) Vital Signs (Past 12 Hours) Vital Signs Temp Pulse Resp BP Pulse Ox 08/04/20 07:06 98.4 F 79 16 127/75 96 PG Care Time/CCT Total # of Minutes Spent Total Time Spent with Patient: Total time spent is greater than 50% in coordination of care (as documented) at patient's floor/unit and/or counseling patient: Total time spent 35 minutes with more than 50% of time spent of goals of care, POLST, family update Coding Level of Care Code 39076 Subseq Hosp Care Lvl 3 Diagnoses Palliative care encounter Z51.5 Weakness R53.1 Dysphagia R13.10 Dysphagia type: unspecified Time Spent (min) 35 (1) Dysphagia Dysphagia type: unspecified Qualified Code(s): R13.10 - Dysphagia, unspecified
[2020-08-05 06:55] LABS: Creatinine Clr Calc Pharmacy 76.5 ml/min; Est GFR (Non-African American) 69.9; Magnesium 2.1 mg/dl (1.8-2.4); Potassium 4.1 mmol/L (3.5-5.1)
[2020-08-05 06:59] LABS: Phosphorus 3.8 mg/dl (2.5-4.9)
[2020-08-05] MEDS: CALCIUM CARBONATE 1,250 MG/5 ML UDC PO SCH ×2 (08:41→21:06)
[2020-08-05] MEDS: ENOXAPARIN 100 MG/1ML SYR SQ SCH ×2 (08:42→21:09)
[2020-08-05] MEDS: GABAPENTIN 300 MG CAP PO SCH ×3 (08:42→21:06)
[2020-08-05] MEDS: CARBIDOPA/LEVODOPA 25/100MG TAB PO SCH ×3 (08:43→21:07)
[2020-08-05] MEDS: predniSONE 10 MG TABLET PO SCH (08:43)
[2020-08-05] MEDS: POTASSIUM CHLORIDE PWD 20 MEQ PACK PO SCH ×2 (08:43→21:06)
[2020-08-05] MEDS: allopurinoL 100 MG TAB PO SCH (08:44)
[2020-08-05] MEDS: MAGNESIUM OXIDE 400 MG TAB PO SCH ×2 (08:44→21:06)
[2020-08-05] MEDS: levETIRAcetam 500 MG TAB PO SCH ×2 (08:44→21:11)
[2020-08-05] MEDS: TOPIRAMATE 100 MG TAB PO SCH ×2 (08:45→21:06)
[2020-08-05] MEDS: TERBINAFINE CR 30 GM TUBE EXT SCH ×2 (08:45→21:10)
[2020-08-05] MEDS: INSULIN GLARGINE SOLOSTAR 100 UNITS/ML 3 ML PEN SC SCH ×2 (08:46→21:09)
[2020-08-05] MEDS: INSULIN ASPART 100 UNITS/ML 3 ML PEN SC SCH ×4 (08:48→21:08)
--- NOTE | 2020-08-05 09:51 | Hospitalist Progress Note ---
Date of Service August 05, 2020 Assessment & Plan (1) Aspiration pneumonia: 75yo M with ILD (baseline 2L NC at nighttime), parkinson's, CKD3, IDDM2, paroxysmal afib, AV valve replacement, HLD, lumbar spinal stenosis p/w worsening dyspnea, weakness, falls, dysphagia, malnutrition, and encephalopathy. Aspiration pneumonia, Chronic ILD -finished abx - unasyn discontinued 08/01 -continue chronic prednisone, continue albuterol Swallowing dysfunction -appreciate ongoing speech therapy recommendations -pured diet with honey thick liquids, strict aspiration precautions -patient prefers a more comfort-based approach; has opted to stick with honey- thick pureed as opposed to NG/PEG; -tolerating this diet well so far and can take meds either crushed or placed in pudding -continue with 60oz/day liquid intake goal -no plan to replace NG tube Malnutrition, electrolyte abnormalities -hypokalemia, hypophosphatemia, hypomagnesemia, hypocalcemia resolved; patient electrolyte levels are remaining stable with oral supplementation, will continue repletion as below: -potassium chloride 20mEq bid -magnesium oxide 400mg bid -calcium carbonate 1250mg bid -BMP, mag, phos every 2-3 days Atrial fibrillation on chronic eliquis -07/25: episode asymptomatic afib with RVR to the 140s - improved to 90-100s with 2.5mg lopressor -continue to monitor -holding eliquis due to swallowing dysfunction initially, continue lovenox History of AV valve replacement -No concerns. Neurogenic claudication - s/p spine surgery 07/20/20 -cleared from an orthopedic standpoint -continue gabapentin, continue PT/OT -not requiring opioid pain meds -08/05: given patient concerns for ongoing surgical site pain, contacted orthopedics, who will evaluate him today; appreciate their insight -patient complaining of ongoing moderate/severe pain of his incision site, benign exam, requesting additional pain control; pt is not an NSAID candidate, gave a one-time oxycodone dose 5mg PO, will monitor effect Encephalopathy -resolved; was likely 2/2 aspiration pneumonia, hospitalization, tube feeds, -continue to monitor Parkinson's -continue carbidopa/levodopa IDDM2 -holding trulicity -glargine adjusted on 07/30 to 15u bid (from 20u bid) as transition from tube feeds to PO resulted in slightly lower overall intake -CF adjusted to 25, CHO adjusted to 8 per glycemic consult recommendations; appreciate ongoing recommendations -ISS qac -continue to monitor CKD3 -BUN/Cr reassuring and stable; continue to monitor Tinea cruris -continue terbinafine cream Dispo -08/03: SNF denied after [id number] today -08/04: CM continuing their search, appreciate ongoing recommendations FENGI: honey-thick pureed diet as above DVT ppx: lovenox Isolation: none Consults: palliative care, nutrition, orthopedic surgery (signed off) Code status: DNR/DNI Dispo: pending PT/OT and placement Admission and Anticipated Discharge Date Admission Date: July 10, 2020 Supervising Physician Co-Signing Physician Notes Resident Physician Supervision Note: I independently interviewed and examined the patient and verified the peña history and physical, reviewed labs and image studies, discussed the case with the resident Dr. Farrell and agree with the findings and care plan. Subjective Patient seen at bedside this morning. Patient was sitting in his bedside chair. Feels well today but is growing concerned about his back pain, asking for it to be evaluated by his surgical team prior to discharge just to make sure it's expected incisional pain. Pain is not better or worse but the persistence is concerning to the patient. Denies CP, SOB, change in bowel or bladder habits, radicular pain, lightheadedness, dizziness, or other symptoms. Still pending placement. Review of Systems Review of Systems: See HPI Physical Exam Physical Exam: Awake, alert, sitting in bedside chair NCAT, MMM CV: regular rate, regular rhythm Resp: lungs CTABL MSK: back surgery site covered with wound dressing +/- lidocane patch, deferred examination of incision to orthopedic team who has been contacted Neuro: no focal deficits Psych: euthymic, interactive, cooperative Results & Data Results & Data ([facility]) Vital Signs (Past 12 Hours) Vital Signs Temp Pulse Resp BP BP Pulse Ox 08/05/20 07:26 36.7 C 63 16 123/70 96 08/04/20 22:50 36.8 C 73 18 119/73 98 Resident Activity Tracking Resident Involvement: Resident Care Provided Care Provided: Adult [facility]
--- NOTE | 2020-08-05 13:00 | XRay Report ---
XR lumbar spine 2-3V CLINICAL HISTORY: lbp, check hardware post op COMPARISON STUDY: Lumbar spine radiographs May 31, 2020. Lumbar spine fluoroscopic images July 20, 2020. FINDINGS: These images demonstrate L5-S1 discectomy with interbody spacer placement. Posterior decomp ression is noted. There is bilateral pedicle screw fusion from L3 through S1. Interconnecting rods ar e present. Hardware is intact. There are no unexpected radiopaque foreign bodies. No fracture is iden tified. IMPRESSION: Radiographs demonstrating L5-S1 discectomy and posterior decompression with bilateral pe dicle screws from L3 through S1. Intact. No fracture identified. ACT 112: Negative or not required by law. Electronically signed by: John Paul Drummond M.D. 08/05/2020 12:59 PM
[2020-08-05] MEDS ORDERED: oxyCODONE HCL IR 5 MG TAB (IMMEDIATE RELEASE) PO STA (15:19)
[2020-08-05] MEDS ORDERED: oxyCODONE HCL IR 5 MG TAB (IMMEDIATE RELEASE) PO ONE (22:00)
[2020-08-05] MEDS: ALBUT/IPRATROP 3MG/0.5MG NEB 3 ML VIAL INH PRN (23:32)
[2020-08-06] MEDS: CALCIUM CARBONATE 1,250 MG/5 ML UDC PO SCH ×2 (07:49→20:32)
[2020-08-06] MEDS: CARBIDOPA/LEVODOPA 25/100MG TAB PO SCH ×3 (07:50→20:33)
[2020-08-06] MEDS: POTASSIUM CHLORIDE PWD 20 MEQ PACK PO SCH ×2 (07:50→20:32)
[2020-08-06] MEDS: predniSONE 10 MG TABLET PO SCH (07:50)
[2020-08-06] MEDS: TOPIRAMATE 100 MG TAB PO SCH ×2 (07:50→20:33)
[2020-08-06] MEDS: levETIRAcetam 500 MG TAB PO SCH ×2 (07:50→20:33)
[2020-08-06] MEDS: allopurinoL 100 MG TAB PO SCH (07:51)
[2020-08-06] MEDS: MAGNESIUM OXIDE 400 MG TAB PO SCH ×2 (07:51→20:33)
[2020-08-06] MEDS: ENOXAPARIN 100 MG/1ML SYR SQ SCH ×2 (07:52→20:34)
[2020-08-06] MEDS: TERBINAFINE CR 30 GM TUBE EXT SCH ×2 (07:52→20:34)
[2020-08-06] MEDS: GABAPENTIN 300 MG CAP PO SCH ×3 (07:54→20:34)
[2020-08-06] MEDS: ACETAMINOPHEN 500 MG TAB PO PRN (07:56)
[2020-08-06] MEDS: INSULIN ASPART 100 UNITS/ML 3 ML PEN SC SCH ×4 (08:48→21:02)
[2020-08-06] MEDS: INSULIN GLARGINE SOLOSTAR 100 UNITS/ML 3 ML PEN SC SCH ×2 (08:50→21:02)
--- NOTE | 2020-08-06 11:16 | Hospitalist Progress Note ---
Date of Service August 06, 2020 Assessment & Plan (1) Aspiration pneumonia: 75yo M with ILD (baseline 2L NC at nighttime), parkinson's, CKD3, IDDM2, paroxysmal afib, AV valve replacement, HLD, lumbar spinal stenosis p/w worsening dyspnea, weakness, falls, dysphagia, malnutrition, and encephalopathy. Aspiration pneumonia, Chronic ILD -finished abx - unasyn discontinued 08/01 -continue chronic prednisone, continue albuterol Swallowing dysfunction -appreciate ongoing speech therapy recommendations -pured diet with honey thick liquids, strict aspiration precautions -patient prefers a more comfort-based approach; has opted to stick with honey- thick pureed as opposed to NG/PEG -tolerating this diet well so far and can take meds either crushed or placed in pudding -continue with 60oz/day liquid intake goal -no plan to replace NG tube Malnutrition, electrolyte abnormalities -hypokalemia, hypophosphatemia, hypomagnesemia, hypocalcemia resolved; patient electrolyte levels are remaining stable with oral supplementation, will continue repletion as below: -potassium chloride 20mEq bid -magnesium oxide 400mg bid -calcium carbonate 1250mg bid -BMP, mag, phos every 2-3 days Atrial fibrillation on chronic eliquis -07/25: episode asymptomatic afib with RVR to the 140s - improved to 90-100s with 2.5mg lopressor -continue to monitor -holding eliquis due to swallowing dysfunction initially, continue lovenox History of AV valve replacement -No concerns. Neurogenic claudication - s/p spine surgery 07/20/20 -cleared from an orthopedic standpoint -continue gabapentin, continue PT/OT -not requiring opioid pain meds -08/05: patient complaining of ongoing moderate/severe pain of his incision site, benign exam, requesting additional pain control; orthopedic surgery to reevaluate; pt is not an NSAID candidate 2/2 CKD3 - gave a one-time oxycodone dose 5mg PO which provided adequate pain control -08/06: spoke with orthopedic surgery - xray unchanged from prior imaging, pain is suspected 2/2 normal post-op pain in addition to pain from starting PT after extended period of immobility; added oxycodone 5mg PO q6h, will reevaluate daily Encephalopathy -resolved; was likely 2/2 aspiration pneumonia, hospitalization, tube feeds, -continue to monitor Parkinson's -continue carbidopa/levodopa IDDM2 -holding trulicity -glargine adjusted on 07/30 to 15u bid (from 20u bid) as transition from tube feeds to PO resulted in slightly lower overall intake -CF adjusted to 25, CHO adjusted to 8 per pharmacy suggestion; appreciate ongoing pharmacy recs for glycemic control -ISS qac -continue to monitor CKD3 -BUN, Cr reassuring and stable; continue to monitor Tinea cruris -continue terbinafine cream Dispo -08/03: [id number] completed - SNF subsequently denied, insurance feels needs can be met with lower level of care (home health) -08/05: [id number] completed to appeal SNF denial -08/06: SNF again denied by insurance. Patient and family notified. Per CM, only other option is member appeal - patient discussed with family; patient will call today and appeal decision himself FENGI: honey-thick pureed diet as above DVT ppx: lovenox Isolation: none Consults: palliative care, nutrition, orthopedic surgery (signed off) Code status: DNR/DNI Dispo: pending placement Admission and Anticipated Discharge Date Admission Date: July 10, 2020 Supervising Physician Co-Signing Physician Notes Resident Physician Supervision Note: I independently interviewed and examined the patient and verified the peña history and physical, reviewed labs and image studies, discussed the case with the resident Dr. Farrell and agree with the findings and care plan. Subjective Patient seen at bedside this morning, he was in the bedside chair eating breakfast. Mood is "awful" today, described below. Feels "okay" from a physical standpoint, complaining of continued back pain, but also notes a new mildly- productive cough. Denies CP, SOB, abdominal pain, nausea, vomiting. Patient endorses feeling "awful" today - very tearful and anxious after being told he was denied for prison, and that insurance wants to send him home with home health rather than allowing him to go to inpatient rehab or SNF first. Patient notes he was able to walk 145 feet yesterday with PT but notes he was in pain and unsteady. Patient expresses serious worries about his safety upon returning home. "My legs have no strength", "I've been in bed for weeks", "I almost from that pneumonia", "what am I going to do?". I tried to reassure patient that I would work with CM and see what we can do. Discussed with CM - only remaining thing to try is for the family to do their own appeal. I let CM know I am happy to talk with family if they would like. Review of Systems Review of Systems: See HPI Physical Exam Physical Exam: Awake, alert, sitting in bedside chair, eating breakfast NCAT, MMM CV: regular rate, regular rhythm Resp: lungs CTABL MSK: lumbar surgical site covered with wound dressing +/- lidocane patch Neuro: no focal deficits Psych: anxious, mood "awful", tearful, thought content - worry about returning home without going to rehab first Results & Data Results & Data ([facility]) Vital Signs (Past 12 Hours) Vital Signs Temp Pulse Resp BP Pulse Ox 08/06/20 06:05 36.8 C 61 16 150/78 H 97 08/05/20 23:33 64 18 100 Resident Activity Tracking Resident Involvement: Resident Care Provided Care Provided: Adult Hospital Medicine
[2020-08-06] MEDS: oxyCODONE HCL IR 5 MG TAB (IMMEDIATE RELEASE) PO PRN (14:25)
[2020-08-06] MEDS: ALBUT/IPRATROP 3MG/0.5MG NEB 3 ML VIAL INH PRN (20:12)
[2020-08-07 06:18] LABS: BUN Creatinine Ratio 26.3 (10-20); Calcium 8.9 mg/dl (8.5-10.1); Creatinine Clr Calc Pharmacy 69.2 ml/min; Est GFR (African American) 71.7; Est GFR (Non-African American) 61.9; Magnesium 2.2 mg/dl (1.8-2.4)
[2020-08-07 06:19] LABS: Phosphorus 3.4 mg/dl (2.5-4.9)
--- NOTE | 2020-08-07 07:22 | Hospitalist Progress Note ---
Date of Service August 07, 2020 Assessment & Plan (1) Aspiration pneumonia: 75yo M with ILD (baseline 2L NC at nighttime), parkinson's, CKD3, IDDM2, paroxysmal afib, AV valve replacement, HLD, lumbar spinal stenosis p/w worsening dyspnea, weakness, falls, dysphagia, malnutrition, and encephalopathy. Aspiration pneumonia, Chronic ILD -finished abx - unasyn discontinued 08/01 -continue chronic prednisone, continue albuterol Swallowing dysfunction -appreciate ongoing speech therapy recommendations -pured diet with honey thick liquids, strict aspiration precautions -patient prefers a more comfort-based approach; has opted to stick with honey- thick pureed as opposed to NG/PEG -tolerating this diet well so far and can take meds either crushed or placed in pudding Malnutrition, electrolyte abnormalities -hypokalemia, hypophosphatemia, hypomagnesemia, hypocalcemia resolved; patient electrolyte levels are remaining stable with oral supplementation, will continue repletion as below: -potassium chloride 20mEq bid -magnesium oxide 400mg bid -calcium carbonate 1250mg bid Atrial fibrillation on chronic eliquis -07/25: episode asymptomatic afib with RVR to the 140s - improved to 90-100s with 2.5mg lopressor -continue to monitor -holding eliquis due to swallowing dysfunction initially, continue lovenox History of AV valve replacement -No concerns. Neurogenic claudication - s/p spine surgery 07/20/20 -cleared from an orthopedic standpoint -continue gabapentin, continue PT/OT -08/05: complained of back pain. Spoke to ortho - xray done - unchanged. added oxycodone 5mg PO q6h, will reevaluate daily Encephalopathy -resolved; was likely 2/2 aspiration pneumonia, hospitalization, tube feeds, -continue to monitor Parkinson's -continue carbidopa/levodopa IDDM2 -holding trulicity -glargine adjusted on 07/30 to 15u bid (from 20u bid) as transition from tube feeds to PO resulted in slightly lower overall intake -CF adjusted to 25, CHO adjusted to 8 per pharmacy suggestion; appreciate ongoing pharmacy recs for glycemic control -ISS qac -continue to monitor CKD3 -BUN, Cr reassuring and stable; continue to monitor Tinea cruris -continue terbinafine cream Constipation -added miralax 1-2 packets as needed Dispo -08/03: [id number] completed - SNF subsequently denied, insurance feels needs can be met with lower level of care (home health) -08/05: [id number] completed to appeal SNF denial -08/06: SNF again denied by insurance. Patient and family notified. Per CM, only other option is member appeal - patient discussed with family; patient completed member appeal call, awaiting insurance company response FENGI: honey-thick pureed diet as above DVT ppx: lovenox Isolation: none Consults: palliative care, nutrition, orthopedic surgery (signed off) Code status: DNR/DNI Dispo: pending placement Admission and Anticipated Discharge Date Admission Date: July 10, 2020 Supervising Physician Co-Signing Physician Notes Resident Physician Supervision Note: I independently interviewed and examined the patient and verified the peña history and physical, reviewed labs and image studies, discussed the case with the resident Dr. Farrell and agree with the findings and care plan. Subjective Patient seen at bedside this morning. Patient called his insurance company yesterday to pursue a member appeal their denial of SNF, reports it went okay and they said he will have a response within 72 hours. Otherwise feeling okay, reports his back pain has improved, has not needed oxy today. Denies CP, SOB, abdominal pain. Requested some miralax. Review of Systems Review of Systems: See HPI Physical Exam Physical Exam: Awake, alert, sitting in bedside chair NCAT, MMM CV: regular rate, regular rhythm Resp: lungs CTABL Neuro: no focal deficits Psych: euthymic, "decent" mood, calm, cooperative, linear thought process Results & Data Results & Data ([facility]) Vital Signs (Past 12 Hours) Vital Signs Temp Pulse Resp BP Pulse Ox 08/06/20 22:05 36.8 C 73 16 104/58 L 98 08/06/20 20:12 68 18 98 Resident Activity Tracking Resident Involvement: Resident Care Provided Care Provided: Adult Hospital Medicine
[2020-08-07] MEDS: predniSONE 10 MG TABLET PO SCH (08:13)
[2020-08-07] MEDS: TERBINAFINE CR 30 GM TUBE EXT SCH ×2 (08:13→20:20)
[2020-08-07] MEDS: levETIRAcetam 500 MG TAB PO SCH ×2 (08:13→20:20)
[2020-08-07] MEDS: TOPIRAMATE 100 MG TAB PO SCH ×2 (08:14→20:20)
[2020-08-07] MEDS: CARBIDOPA/LEVODOPA 25/100MG TAB PO SCH ×3 (08:14→20:19)
[2020-08-07] MEDS: MAGNESIUM OXIDE 400 MG TAB PO SCH ×2 (08:15→20:20)
[2020-08-07] MEDS: allopurinoL 100 MG TAB PO SCH (08:15)
[2020-08-07] MEDS: POTASSIUM CHLORIDE PWD 20 MEQ PACK PO SCH ×2 (08:15→20:19)
[2020-08-07] MEDS: GABAPENTIN 300 MG CAP PO SCH ×3 (08:16→20:19)
[2020-08-07] MEDS: ENOXAPARIN 100 MG/1ML SYR SQ SCH ×2 (08:16→20:21)
[2020-08-07] MEDS: CALCIUM CARBONATE 1,250 MG/5 ML UDC PO SCH ×2 (08:16→20:19)
[2020-08-07] MEDS: INSULIN GLARGINE SOLOSTAR 100 UNITS/ML 3 ML PEN SC SCH ×2 (09:08→21:26)
[2020-08-07] MEDS: INSULIN ASPART 100 UNITS/ML 3 ML PEN SC SCH ×4 (09:09→21:26)
[2020-08-07] MEDS: POLYETHYLENE (MIRALAX) 17 GM PACK PO PRN ×2 (13:07→19:44)
[2020-08-07] MEDS: oxyCODONE HCL IR 5 MG TAB (IMMEDIATE RELEASE) PO PRN (14:14)
[2020-08-07] MEDS: ALBUT/IPRATROP 3MG/0.5MG NEB 3 ML VIAL INH PRN (21:51)
--- NOTE | 2020-08-08 07:53 | Hospitalist Progress Note ---
Date of Service August 08, 2020 Assessment & Plan (1) Aspiration pneumonia: 75yo M with ILD (baseline 2L NC at nighttime), parkinson's, CKD3, IDDM2, paroxysmal afib, AV valve replacement, HLD, lumbar spinal stenosis p/w worsening dyspnea, weakness, falls, dysphagia, malnutrition, and encephalopathy. Aspiration pneumonia, Chronic ILD -finished abx - unasyn discontinued 08/01 -continue chronic prednisone, continue albuterol Swallowing dysfunction -appreciate ongoing speech therapy recommendations -pured diet with honey thick liquids, strict aspiration precautions -patient prefers a more comfort-based approach; has opted to stick with honey- thick pureed as opposed to NG/PEG -tolerating this diet well so far and can take meds either crushed or placed in pudding Malnutrition, electrolyte abnormalities -hypokalemia, hypophosphatemia, hypomagnesemia, hypocalcemia resolved; patient electrolyte levels are remaining stable with oral supplementation, will continue repletion as below: -potassium chloride 20mEq bid -magnesium oxide 400mg bid -calcium carbonate 1250mg bid Presyncopal event, fall Presyncopal event (08/07) while ambulating on unit, legs became weak, patient was helped into chair and then back into bed without issue, no LOC, VSS. Mechanical fall x1 overnight (08/07-08/08) unwitnessed/unreported by patient until morning rounds, reports fell on left hip and then pulled himself back into bed. -obtain orthostatic vital signs -low suspicion for arrhythmia, will hold off on EKG for now but consider if presyncope recurs -symptoms possibly 2/2 deconditioning; continue PT/OT -encouraged calling RN for assistance getting OOB every time Atrial fibrillation on chronic eliquis -07/25: episode asymptomatic afib with RVR to the 140s - improved to 90-100s with 2.5mg lopressor -continue to monitor -holding eliquis due to swallowing dysfunction initially, continue lovenox History of AV valve replacement -No concerns. Neurogenic claudication - s/p spine surgery 07/20/20 -cleared from an orthopedic standpoint -continue gabapentin, continue PT/OT -08/05: complained of back pain. Spoke to ortho - xray done - unchanged. added oxycodone 5mg PO q6h, will reevaluate daily Encephalopathy -resolved; was likely 2/2 aspiration pneumonia, hospitalization, tube feeds, -continue to monitor Parkinson's -continue carbidopa/levodopa IDDM2 -holding trulicity -glargine adjusted on 07/30 to 15u bid (from 20u bid) as transition from tube feeds to PO resulted in slightly lower overall intake -CF adjusted to 25, CHO adjusted to 8 per pharmacy suggestion; appreciate ongoing pharmacy recs for glycemic control -ISS qac -continue to monitor CKD3 -BUN, Cr reassuring and stable; continue to monitor Tinea cruris -continue terbinafine cream Constipation -added miralax 1-2 packets as needed Dispo -08/03: [id number] completed - SNF subsequently denied, insurance feels needs can be met with lower level of care (home health) -08/05: [id number] completed to appeal SNF denial -08/06: SNF again denied by insurance. Patient and family notified. Per , only other option is member appeal - patient discussed with family; patient completed member appeal call, awaiting insurance company response FENGI: honey-thick pureed diet as above DVT ppx: lovenox Isolation: none Consults: palliative care, nutrition, orthopedic surgery (signed off) Code status: DNR/DNI Dispo: pending placement Admission and Anticipated Discharge Date Admission Date: July 10, 2020 Supervising Physician Co-Signing Physician Notes Resident Physician Supervision Note: I independently interviewed and examined the patient and verified the peña history and physical, reviewed labs and image studies, discussed the case with the resident Dr. Farrell and agree with the findings and care plan. Subjective Patient this morning feels "okay but scared about going home", reporting an episode of dizziness and near-fall yesterday. While ambulating on the unit with PT, he became lightheaded and confused; he began to fall but was caught by PT and an RN, and helped into a chair. His symptoms resolved after about 30-40 seconds. After being helped back into bed, vitals were normal. He also notes an episode of falling overnight when he tried to get up to go to the bathroom; his ankle rolled and he fell onto his left hip. He reports slowly getting up on his own and pulling himself back into bed. He reports he did not tell RN overnight because he was embarrassed. Patient also reports feeling depressed, which he relates due to his anxiety, fear, and lack of hope surrounding returning home. He strongly feels he needs more than home PT, and is very worried about further falls at home. He reports low appetite which he believes is due to these emotions. Denies thoughts of harming himself or others. Patient endorses mild pain of his left hip, back pain improved from yesterday, endorses mild cough not worse compared to yesterday, denies CP, SOB, abdominal pain, nausea, vomiting, or other symptoms. Review of Systems Review of Systems: See HPI Physical Exam Physical Exam: Awake, alert, sitting in bedside chair NCAT, MMM CV: regular rate, regular rhythm Resp: lungs CTABL MSK: left hip mildly tender to palpation, no swelling, no erythema Neuro: no focal deficits Psych: anxious, sad, mood depressed, linear logical thought process Results & Data Results & Data ([facility]) Vital Signs (Past 12 Hours) Vital Signs Temp Pulse Pulse Resp BP Pulse Ox 08/08/20 07:19 36.8 C 64 16 104/63 98 08/07/20 22:26 36.7 C 89 20 112/70 92 08/07/20 21:52 64 18 95 Resident Activity Tracking Resident Involvement: Resident Care Provided Care Provided: Adult Hospital Medicine
[2020-08-08] MEDS: INSULIN ASPART 100 UNITS/ML 3 ML PEN SC SCH ×4 (08:26→21:04)
[2020-08-08] MEDS: INSULIN GLARGINE SOLOSTAR 100 UNITS/ML 3 ML PEN SC SCH ×2 (08:26→21:03)
[2020-08-08] MEDS: POLYETHYLENE (MIRALAX) 17 GM PACK PO PRN (08:32)
[2020-08-08] MEDS: POTASSIUM CHLORIDE PWD 20 MEQ PACK PO SCH ×2 (08:50→21:01)
[2020-08-08] MEDS: ENOXAPARIN 100 MG/1ML SYR SQ SCH ×2 (08:50→21:01)
[2020-08-08] MEDS: GABAPENTIN 300 MG CAP PO SCH ×3 (08:51→21:01)
[2020-08-08] MEDS: allopurinoL 100 MG TAB PO SCH (08:51)
[2020-08-08] MEDS: levETIRAcetam 500 MG TAB PO SCH ×2 (08:51→21:00)
[2020-08-08] MEDS: predniSONE 10 MG TABLET PO SCH (08:51)
[2020-08-08] MEDS: CALCIUM CARBONATE 1,250 MG/5 ML UDC PO SCH ×2 (08:51→21:00)
[2020-08-08] MEDS: MAGNESIUM OXIDE 400 MG TAB PO SCH ×2 (08:51→21:01)
[2020-08-08] MEDS: TOPIRAMATE 100 MG TAB PO SCH ×2 (08:51→21:00)
[2020-08-08] MEDS: CARBIDOPA/LEVODOPA 25/100MG TAB PO SCH ×3 (08:51→21:02)
[2020-08-08] MEDS: TERBINAFINE CR 30 GM TUBE EXT SCH ×2 (08:55→21:01)
[2020-08-08] MEDS: ALBUT/IPRATROP 3MG/0.5MG NEB 3 ML VIAL INH PRN (22:28)
[2020-08-09 06:25] LABS: BUN Creatinine Ratio 27.1 (10-20); Calcium 9.2 mg/dl (8.5-10.1); Creatinine Clr Calc Pharmacy 69.8 ml/min; Est GFR (African American) 72.5; Est GFR (Non-African American) 62.6; Potassium 4.2 mmol/L (3.5-5.1)
[2020-08-09] MEDS: CALCIUM CARBONATE 1,250 MG/5 ML UDC PO SCH ×2 (07:52→20:30)
[2020-08-09] MEDS: POTASSIUM CHLORIDE PWD 20 MEQ PACK PO SCH ×2 (07:54→20:29)
[2020-08-09] MEDS: levETIRAcetam 500 MG TAB PO SCH ×2 (07:54→20:30)
[2020-08-09] MEDS: TERBINAFINE CR 30 GM TUBE EXT SCH ×2 (07:55→20:30)
[2020-08-09] MEDS: ENOXAPARIN 100 MG/1ML SYR SQ SCH ×2 (07:56→20:30)
[2020-08-09] MEDS: MAGNESIUM OXIDE 400 MG TAB PO SCH ×2 (07:57→20:30)
[2020-08-09] MEDS: GABAPENTIN 300 MG CAP PO SCH ×3 (07:58→20:29)
[2020-08-09] MEDS: TOPIRAMATE 100 MG TAB PO SCH ×2 (07:59→20:29)
[2020-08-09] MEDS: predniSONE 10 MG TABLET PO SCH (07:59)
[2020-08-09] MEDS: CARBIDOPA/LEVODOPA 25/100MG TAB PO SCH ×3 (07:59→20:29)
[2020-08-09] MEDS: allopurinoL 100 MG TAB PO SCH (08:00)
[2020-08-09] MEDS: INSULIN GLARGINE SOLOSTAR 100 UNITS/ML 3 ML PEN SC SCH ×2 (08:01→21:06)
[2020-08-09] MEDS: INSULIN ASPART 100 UNITS/ML 3 ML PEN SC SCH ×4 (08:02→21:05)
--- NOTE | 2020-08-09 13:42 | Hospitalist Progress Note ---
Date of Service August 09, 2020 Assessment & Plan (1) Aspiration pneumonia: 75yo M with ILD (baseline 2L NC at nighttime), parkinson's, CKD3, IDDM2, paroxysmal afib, AV valve replacement, HLD, lumbar spinal stenosis p/w worsening dyspnea, weakness, falls, dysphagia, malnutrition, and encephalopathy. Awaiting insurance appeal for discharge to SNF. Suicidal Ideation - patient endorses thoughts of killing himself if discharged home without rehab, but does not have plan, no previous attempts, has good support system, no previous psych hx - low risk - Psych consulted - recommends SSRI if symptoms persist, agrees that no acute suicide risk while in the hospital - continue to monitor Aspiration pneumonia, Chronic ILD -finished abx - unasyn discontinued 08/01 -continue chronic prednisone, continue albuterol Swallowing dysfunction -appreciate ongoing speech therapy recommendations -pured diet with honey thick liquids, strict aspiration precautions -patient prefers a more comfort-based approach; has opted to stick with honey- thick pureed as opposed to NG/PEG -tolerating this diet well so far and can take meds either crushed or placed in pudding Malnutrition, electrolyte abnormalities -hypokalemia, hypophosphatemia, hypomagnesemia, hypocalcemia resolved; patient electrolyte levels are remaining stable with oral supplementation, will continue repletion as below: -potassium chloride 20mEq bid -magnesium oxide 400mg bid -calcium carbonate 1250mg bid Presyncopal event, fall Presyncopal event (08/07) while ambulating on unit, legs became weak, patient was helped into chair and then back into bed without issue, no LOC, VSS. Mechanical fall x1 overnight (08/07-08/08) unwitnessed/unreported by patient until morning rounds, reports fell on left hip and then pulled himself back into bed. -obtain orthostatic vital signs -low suspicion for arrhythmia, will hold off on EKG for now but consider if presyncope recurs -symptoms likely 2/2 deconditioning; continue PT/OT -encouraged calling RN for assistance getting OOB every time Atrial fibrillation -07/25: episode asymptomatic afib with RVR to the 140s - improved to 90-100s with 2.5mg lopressor -continue to monitor -holding eliquis due to swallowing dysfunction initially, continue lovenox History of AV valve replacement -No concerns. Neurogenic claudication - s/p spine surgery 07/20/20 -cleared from an orthopedic standpoint -continue gabapentin, continue PT/OT -08/05: complained of back pain. Spoke to ortho - xray done - unchanged. added oxycodone 5mg PO q6h, will reevaluate daily Encephalopathy -resolved; was likely 2/2 aspiration pneumonia, hospitalization, tube feeds, -continue to monitor Parkinson's -continue carbidopa/levodopa IDDM2 -holding trulicity -glargine adjusted on 07/30 to 15u bid (from 20u bid) as transition from tube feeds to PO resulted in slightly lower overall intake -CF adjusted to 25, CHO adjusted to 8 per pharmacy suggestion; appreciate ongoing pharmacy recs for glycemic control -SSI -continue to monitor CKD3 -BUN, Cr reassuring and stable; continue to monitor Tinea cruris -continue terbinafine cream Constipation -continue miralax 1-2 packets as needed Dispo -08/03: [id number] completed - SNF subsequently denied, insurance feels needs can be met with lower level of care (home health) -08/05: [id number] completed to appeal SNF denial -08/06: SNF again denied by insurance. Patient and family notified. Per , only other option is member appeal - patient discussed with family; patient completed member appeal call, awaiting insurance company response FENGI: honey-thick pureed diet as above DVT ppx: lovenox Isolation: none Consults: palliative care, nutrition, orthopedic surgery (signed off) Code status: DNR/DNI Dispo: pending placement Admission and Anticipated Discharge Date Admission Date: July 10, 2020 Supervising Physician Co-Signing Physician Notes I personally examined the patient and verified all peña points of history and exam, discussed case, and agree with decision making with Dr George. Talking with psych liaison nurse whenever I enter the room. I discussed that at this time it is probably more important for him to speak with her, and allow them time to speak. Vitals noted, he is awake and alert pleasant no distress. HEENT normocephalic atraumatic mucous membranes moist. Breathing is unlabored no accessory muscle use good effort. Shows no focal neuro deficits. Dysphagia/aspirationcontinue speech and supportive care. Weakness/deconditioning/neurogenic claudicationcontinue PT/OT. Discharge planning issuesit is utterly unbelievable to me that his insurance company would repeatedly deny SNF. Rehab even seems quite reasonably appropriate given his situation, and SNF level of care absolutely reasonable if rehab was denied. I cannot fathom what logic they would be utilizing to deny SNF level care for him, given his overall situation, surgery, weakness, dysphagia, and need for ongoing PT/OT/speech therapy, as well as medical superv ision. Again all of that pleads a fairly strong case for rehab, and if this were not the case, then definitely SNF. Outside of some contractual technicality or blatant financial motivation, I cannot see how ongoing supervised care with ongoing therapy would be deemed not necessary in his situation. I am hopeful that the current round of appeals will yield approval for SNF level of care, and if not, we may need to consider extreme measures such as the state insurance commission for oversight on what seems to be a truly unconscionable decision by [facility] Subjective No acute events overnight. This morning patient reports having a decreased appetite. Also reports feeling sad and depressed about his medical state as well as the inability to get accepted to rehab thus far. He became very tearful and dysphoric on exam and said he does not want to keep living and being "such a burden" to his family if he has to go home without rehab. He does not have a plan for harm/suicide although he has thought about dying. Denies previous psychiatric history, has never attempted suicide before, does not have access to weapons at home, feels that his family is a great support system for him. Reports that pain is well-controlled. Denies fever/chills, chest pain, N/V, abdominal pain. Review of Systems Review of Systems: Pertinent positives and negatives mentioned in HPI. Physical Exam Physical Exam: General: A&Ox3. NAD. Cooperative. HEENT: Atraumatic, normocephalic. Pulm: CTAB A&P. -wheezes, -rales, -rhonchi. Symmetrical chest rise. No increase work of breathing. No respiratory distress. Cardiac: RRR, -mrg. Radial pulses intact and symmetrical. Abdominal: soft, non-tender, non-distended, BS x 4 Results & Data Results & Data ([facility]) Vital Signs (Past 12 Hours) Vital Signs Temp Pulse Resp BP Pulse Ox 08/09/20 06:52 36.6 C 66 16 112/67 100 Resident Activity Tracking Resident Involvement: Resident Care Provided Care Provided: Adult Hospital Medicine
--- NOTE | 2020-08-09 13:45 | Psychiatric Consultation ---
Date of Consultation August 09, 2020 Impression / Recommendations Impression Dr. Chelita Espino was directly involved in review and discussion of the patient's case and participated in medical decision making regarding treatment recommendations. RECOMMENDATIONS: 08/09/20 - Psychiatric consultation requested to evaluate patient for suicidality - reportedly made statements in the setting of discharge uncertainly and perceived inability to care for self at home. - Pt has no known psychiatric history - no history of psychotropic medications. 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 Pt admits to increased tearfulness in the setting of prolonged hospitalization and numerous medical insults, but denies feeling depressed prior to his admission. Pt is declining medication at this time, and it does not clearly seem indicated. If patient's mood continues to be depressed or suicidality is persistent, would consider a trial of sertraline to target depressive symptoms. - Encourage a proactive discharge planning meeting between patient, family, case management, and primary team to assess appropriate discharge options. Pt is reporting concern related to his safety if he were to be discharged home without adequate supports. He is also concerned about becoming overly reliant on his family for support. Pt did sign an JORGE for his son to allow our service to inform them of his conditional suicidality and discuss safety planning recommendations. - Although patient is verbalizing physical safety concerns related to his ability to care for himself at home, he does not seem to be at imminent risk of harm to himself here in the hospital setting. He is able to contract for safety, denying temptations to harm himself in the hospital and stating he feels he could reach out to staff with any concerns. Pt is now also stating that he feels he would be able to reach out to his son with any acute safety concerns as well. - Pt was more calm and comforted after conversation with this provider, he admitted to feeling more safe and better able to recognize supports he has available to him. Psych History Identifying Data 75-year-old male admitted medically on 07/10/20 after presenting to the ED with concerns related to shortness of breath and frequent falls. Pt has been admitted medically for nearly a month. Psychiatric consultation was requested to evaluate patient for suicidality, having reportedly made statements of concern surrounding possibility of having to return home. Chief Complaint "It's been a rough weekend, physically and emotionally." History of Present Illness Xavi Bardford is a 75-year-old male admitted medically on 07/10/20 after presenting to the ED with complaints related to shortness of breath and frequent falls. Pt underwent a spinal procedure on 07/20/20 due to neurogenic claudication due to lumbar spinal stenosis. Palliative care subsequently consulted on 07/26/20 to discuss goals of care. Pt and family were reportedly interested in discharge to a prison facility; however, patient had been denied for that level of care. According to case management notes, family is completing an appeal. Psychiatric consultation was requested on 08/09/20 due to patient reportedly verbalizing suicidal statements to his nurse suggesting he had though about ways to commit suicide if he were discharged home without adequate support. Pt was cooperative with conversation with our psychiatric nurse liaison - see separate note for additional details. He admitted to numerous stressful medical insults since the passing of his from pancreatic cancer in 2017. He reported that he does not view himself as depressed. Pt reported that he does not feel safe to be discharged home in his current condition and was worried about adding an extra burden on his family if he is not accepted to a prison facility as desired. Pt did verbalize thoughts he had related to how he could end his life, but had denied intention and admitted he actually was scared by the thoughts. Pt's son admitted to liaison staff that the patient had informed him of his suicidality. He also verbalized concerns related to the patient's physical safety at home, but reported plans to continue to offer support. Pt was seen by this provider to follow-up on initial assessment. He admits that he has been overwhelmed throughout his hospitalization. He states it has felt like "one thing after another." Pt admits that he was hopeful he would be accepted for transfer to a physical rehab; however, he was declined for this level of care by insurance. Pt states that he has been feeling worse physically and has become more concerned about the idea of going home without adequate supports in place. Pt states that the past two evening he has been "thinking of how I could kill myself if I had to go home." He states that these thoughts are concerning to him and he does not believe he would act on them, but nonetheless he is concerned about his discharge plan. Through supportive therapy, patient was able to recognize that he has numerous outpatient supports that could be available to him in the event that he did return home. Pt is also aware that his son is available to some extent to assist, though admits - "I don't want to burden him more." Pt was able to contract for safety in the hospital setting, admitting he would notify staff of any acute thoughts or intent to harm himself. After our conversation, he was also able to admit that he felt he would tell his son about any suicidality at home before he would act. Pt reported appreciation and was encouraged to reach out to our service with additional questions. Past Psychiatric History Current Psychiatric Diagnosis: None known Outpatient Services: None Previous Psych Admissions: None History of Previous Suicide Attempt: No Past Medication Trials: None Allergies Allergy/AdvReac Type Severity Reaction Status Date / Time Iodinated Contrast Media Allergy Severe Anaphylaxis Verified 07/10/20 20:53 shellfish derived Allergy Severe Anaphylaxis Verified 07/10/20 20:53 Tetanus Vaccines and Toxoid Allergy Unknown Unknown Verified 07/10/20 20:53 Home Medications Medication Instructions Recorded Confirmed Type Trulicity 1.5 mg SUBCUT SA 01/20/20 07/10/20 History albuterol sulfate [Ventolin HFA] 2 puff INHALATION Q4H PRN 01/20/20 07/10/20 History allopurinol 200 mg PO 01/20/20 07/10/20 History azithromycin 250 mg PO [email or web address] 01/20/20 07/10/20 History cholecalciferol (vitamin D3) 2,000 unit PO 01/20/20 07/10/20 History [Vitamin D3] finasteride 5 mg PO [facility] 01/20/20 07/10/20 History insulin aspart U-100 0 unit SUBCUT ACHS 01/20/20 07/10/20 History ipratropium-albuterol 3 ml INHALATION QID PRN 01/20/20 07/10/20 History nitroglycerin 0.4 mg SUBLINGUAL DIRECTED PRN 01/20/20 07/10/20 History ohooouf-dsbwtuvtc-zsby 1 tab PO HS 02/05/20 07/10/20 History gabapentin 600 mg tablet 600 mg PO BID tab 04/02/20 07/10/20 History levetiracetam 1,000 mg tablet 1,000 mg PO BID 90 Days #180 tab 04/02/20 07/10/20 Rx topiramate 100 mg tablet 100 mg PO BID 30 Days #60 tab 05/17/20 07/10/20 Rx atorvastatin 40 mg PO HS 05/28/20 07/10/20 History carbidopa 25 mg-levodopa 100 mg 0.5 tab PO TID #90 tab 07/02/20 07/10/20 Rx tablet insulin glargine [Lantus Solostar 20 unit SUBCUT BID 07/10/20 07/10/20 History U-100 Insulin] prednisone 10 mg PO DAILY 07/10/20 07/10/20 History Family History Denies known family history of mental health conditions. Substance Abuse History Denies significant alcohol or tobacco use. Denies use of illicit substances. 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 mild R sided wkness. attending outpatient physical therapy w/ good improvement in strength (5+/5 strength of all 4 extremities as of 05/28/20) Thoracic ascending aortic aneurysm s/p repair Weakness Surgical History H/O hernia repair History of aortic valve replacement mechanical History of cholecystectomy History of fusion of cervical spine History of gastric bypass lap band History of heart artery stent History of lung biopsy 2019 History of partial nephrectomy Family History Other Coronary heart disease Rheumatoid arthritis Stroke Social History Smoking Status: Never smoker Second Hand Exposure: No; Hx Alcohol Use: No Hx Substance Use: No Preferred Language: Burkinan Communication Ability: Effective Hearing Ability: Hard of Hearing Head Cook Required: No marital status: / Current Living Situation: Alone Current Living Situation Comment: son Other Information That Helps Us Care for You: No Feels Safe at Home: Yes Safety Concerns: Feels Safe At This Time Assistive Devices: Walker Physical Exam Psychiatric: Orientation: alert, oriented x 3 and cooperative Apperance: appropriately dressed, + disheveled and appeared stated age Obese-appearing male, laying in bed - appearing anxious and tearful, in mild emotional distress. Pt is appropriately dressed for clinical setting, wearing hospital gown. Eye Contact: good eye contact Motor Behavior: no abnormal motor movements (observed while laying in bed) Speech: normal rate/rhythm/volume of speech Affect: + depressed affect, + anxious affect and + tearful affect Mood: + depressed mood and + anxious mood Thought Process: goal directed thought process and clear/coherent thought process Thought Content: reality based without delusions, + hopelessness and + guilt (about putting increased burden on family) Suicidal Thoughts: + reports suicidal thoughts (intermittent thoughts about harming himself if he had to be d/c'd home) Homicidal Thoughts: denies homicidal thoughts Hallucinations: no auditory hallucinations and no visual hallucinations Cognition: attention grossly intact and language grossly intact Estimated Intelligence: consistent with education level Insight: + fair insight Judgement: + fair judgement Vital Signs (Past 24 Hours): Last Vital Signs Temp 36.6 C 08/09/20 06:52 Pulse 66 08/09/20 06:52 Resp 16 08/09/20 06:52 BP 112/67 08/09/20 06:52 Pulse Ox 100 08/09/20 06:52 Review of Systems Constitutional: reports generalized weakness Cardiovascular: denied Respiratory: reports intermittent shortness of breath Gastrointestinal: denied Neurological: denied Psychiatric: denies symptoms other than stated above Total of at least 10 systems reviewed, pertinent positives as above and in HPI. Results & Data (PSY) Medications Administered Acetaminophen (Acetaminophen 500 Mg Tab) 1,000 mg PO Q8H PRN PRN Reason: Pain Stop: 08/31/20 11:03 Last Admin: 08/06/20 07:56 Dose: 1,000 mg Documented by: [id number] Admin: 08/04/20 20:27 Dose: 1,000 mg Documented by: [id number] Admin: 08/04/20 10:01 Dose: 1,000 mg Documented by: [id number] Admin: 08/02/20 21:42 Dose: 1,000 mg Documented by: [id number] Admin: 08/01/20 20:57 Dose: 1,000 mg Documented by: [id number] Admin: 08/01/20 11:24 Dose: 1,000 mg Documented by: [id number] Albuterol (Albut/Ipratrop 3mg/0.5mg Neb 3 Ml Vial) 3 ml INH QID PRN PRN Reason: Shortness Of Breath Or Wheezing Stop: 08/09/20 22:28 Last Admin: 08/08/20 22:28 Dose: 3 ml Documented by: [id number] Admin: 08/07/20 21:51 Dose: 3 ml Documented by: [id number] Admin: 08/06/20 20:12 Dose: 3 ml Documented by: [id number] Admin: 08/05/20 23:32 Dose: 3 ml Documented by: [id number] Admin: 08/03/20 11:27 Dose: 3 ml Documented by: [id number] Admin: 08/01/20 15:09 Dose: 3 ml Documented by: [id number] Admin: 07/31/20 00:39 Dose: 3 ml Documented by: [id number] Admin: 07/27/20 09:50 Dose: 3 ml Documented by: [id number] Admin: 07/27/20 01:14 Dose: 3 ml Documented by: [id number] Admin: 07/24/20 18:15 Dose: 3 ml Documented by: [id number] Admin: 07/24/20 14:15 Dose: 3 ml Documented by: [id number] Admin: 07/24/20 09:13 Dose: 3 ml Documented by: [id number] Admin: 07/23/20 21:52 Dose: 3 ml Documented by: [id number] Admin: 07/23/20 16:34 Dose: 3 ml Documented by: [id number] Admin: 07/22/20 18:42 Dose: 3 ml Documented by: [id number] Allopurinol (Allopurinol 100 Mg Tab) 200 mg PO DAILY KIRSTEN Stop: 08/24/20 08:59 Last Admin: 08/09/20 08:00 Dose: 200 mg Documented by: [id number] Admin: 08/08/20 08:51 Dose: 200 mg Documented by: [id number] Admin: 08/07/20 08:15 Dose: 200 mg Documented by: [id number] Admin: 08/06/20 07:51 Dose: 200 mg Documented by: [id number] Admin: 08/05/20 08:44 Dose: 200 mg Documented by: [id number] Admin: 08/04/20 09:08 Dose: 200 mg Documented by: [id number] Admin: 08/03/20 07:45 Dose: 200 mg Documented by: [id number] Admin: 08/02/20 08:32 Dose: 200 mg Documented by: [id number] Admin: 08/01/20 09:18 Dose: 200 mg Documented by: [id number] Admin: 07/31/20 09:34 Dose: 200 mg Documented by: [id number] Admin: 07/30/20 08:41 Dose: 200 mg Documented by: [id number] Admin: 07/29/20 08:37 Dose: 200 mg Documented by: [id number] Admin: 07/28/20 08:37 Dose: 200 mg Documented by: [id number] Admin: 07/27/20 09:25 Dose: 200 mg Documented by: [id number] Admin: 07/26/20 08:18 Dose: 200 mg Documented by: [id number] Admin: 07/25/20 08:34 Dose: 200 mg Documented by: [id number] Calcium Carbonate (Calcium Carbonate 1,250 Mg/5 Ml Ud) 1,250 mg PO BID KIRSTEN Stop: 08/29/20 20:59 Last Admin: 08/09/20 07:52 Dose: 1,250 mg Documented by: [id number] Admin: 08/08/20 21:00 Dose: 1,250 mg Documented by: [id number] Admin: 08/08/20 08:51 Dose: 1,250 mg Documented by: [id number] Admin: 08/07/20 20:19 Dose: 1,250 mg Documented by: [id number] Admin: 08/07/20 08:16 Dose: 1,250 mg Documented by: [id number] Admin: 08/06/20 20:32 Dose: 1,250 mg Documented by: [id number] Admin: 08/06/20 07:49 Dose: 1,250 mg Documented by: [id number] Admin: 08/05/20 21:06 Dose: 1,250 mg Documented by: [id number] Admin: 08/05/20 08:41 Dose: 1,250 mg Documented by: [id number] Admin: 08/04/20 20:30 Dose: 1,250 mg Documented by: [id number] Admin: 08/04/20 09:08 Dose: 1,250 mg Documented by: [id number] Admin: 08/03/20 20:43 Dose: 1,250 mg Documented by: [id number] Admin: 08/03/20 07:50 Dose: 1,250 mg Documented by: [id number] Admin: 08/02/20 21:20 Dose: 1,250 mg Documented by: [id number] Admin: 08/02/20 08:29 Dose: 1,250 mg Documented by: [id number] Admin: 08/01/20 20:44 Dose: 1,250 mg Documented by: [id number] Admin: 08/01/20 09:18 Dose: 1,250 mg Documented by: [id number] Admin: 07/31/20 22:09 Dose: 1,250 mg Documented by: [id number] Admin: 07/31/20 09:32 Dose: 1,250 mg Documented by: [id number] Admin: 07/30/20 21:03 Dose: 1,250 mg Documented by: [id number] Carbidopa/Levodopa (Carbidopa/Levodopa 25/100mg Tab) 0.5 tab PO TID KIRSTEN Stop: 08/23/20 20:59 Last Admin: 08/09/20 07:59 Dose: 0.5 tab Documented by: [id number] Admin: 08/08/20 21:02 Dose: 0.5 tab Documented by: [id number] Admin: 08/08/20 13:03 Dose: 0.5 tab Documented by: [id number] Admin: 08/08/20 08:51 Dose: 0.5 tab Documented by: [id number] Admin: 08/07/20 20:19 Dose: 0.5 tab Documented by: [id number] Admin: 08/07/20 14:15 Dose: 0.5 tab Documented by: [id number] Admin: 08/07/20 08:14 Dose: 0.5 tab Documented by: [id number] Admin: 08/06/20 20:33 Dose: 0.5 tab Documented by: [id number] Admin: 08/06/20 14:26 Dose: 0.5 tab Documented by: [id number] Admin: 08/06/20 07:50 Dose: 0.5 tab Documented by: [id number] Admin: 08/05/20 21:07 Dose: 0.5 tab Documented by: [id number] Admin: 08/05/20 14:20 Dose: 0.5 tab Documented by: [id number] Admin: 08/05/20 08:43 Dose: 0.5 tab Documented by: [id number] Admin: 08/04/20 20:30 Dose: 0.5 tab Documented by: [id number] Admin: 08/04/20 15:57 Dose: 0.5 tab Documented by: [id number] Admin: 08/04/20 09:06 Dose: 0.5 tab Documented by: [id number] Admin: 08/03/20 20:42 Dose: 0.5 tab Documented by: [id number] Admin: 08/03/20 13:40 Dose: 0.5 tab Documented by: [id number] Admin: 08/03/20 07:46 Dose: 0.5 tab Documented by: [id number] Admin: 08/02/20 21:19 Dose: 0.5 tab Documented by: [id number] Admin: 08/02/20 14:45 Dose: 0.5 tab Documented by: [id number] Admin: 08/02/20 08:32 Dose: 0.5 tab Documented by: [id number] Admin: 08/01/20 20:44 Dose: 0.5 tab Documented by: [id number] Admin: 08/01/20 14:28 Dose: 0.5 tab Documented by: [id number] Admin: 08/01/20 09:17 Dose: 0.5 tab Documented by: [id number] Admin: 07/31/20 22:11 Dose: 0.5 tab Documented by: [id number] Admin: 07/31/20 13:34 Dose: 0.5 tab Documented by: [id number] Admin: 07/31/20 09:25 Dose: 0.5 tab Documented by: [id number] Admin: 07/30/20 20:41 Dose: 0.5 tab Documented by: [id number] Admin: 07/30/20 12:44 Dose: 0.5 tab Documented by: [id number] Admin: 07/30/20 08:39 Dose: 0.5 tab Documented by: [id number] Admin: 07/29/20 20:41 Dose: Not Given Documented by: [id number] Admin: 07/29/20 15:29 Dose: 0.5 tab Documented by: [id number] Admin: 07/29/20 08:37 Dose: 0.5 tab Documented by: [id number] Admin: 07/28/20 20:14 Dose: 0.5 tab Documented by: [id number] Admin: 07/28/20 15:28 Dose: 0.5 tab Documented by: [id number] Admin: 07/28/20 08:24 Dose: 0.5 tab Documented by: [id number] Admin: 07/27/20 20:46 Dose: 0.5 tab Documented by: [id number] Admin: 07/27/20 15:20 Dose: 0.5 tab Documented by: [id number] Admin: 07/27/20 09:22 Dose: 0.5 tab Documented by: [id number] Admin: 07/26/20 23:44 Dose: 0.5 tab Documented by: [id number] Admin: 07/26/20 15:07 Dose: 0.5 tab Documented by: [id number] Admin: 07/26/20 08:17 Dose: 0.5 tab Documented by: [id number] Admin: 07/25/20 20:12 Dose: 0.5 tab Documented by: [id number] Admin: 07/25/20 16:50 Dose: 0.5 tab Documented by: [id number] Admin: 07/25/20 08:33 Dose: 0.5 tab Documented by: [id number] Admin: 07/24/20 21:46 Dose: 0.5 tab Documented by: [id number] Enoxaparin Sodium (Enoxaparin 100 Mg/1ml Syr) 100 mg SQ Q12H KIRSTEN Stop: 08/21/20 20:59 Last Admin: 08/09/20 07:56 Dose: 100 mg Documented by: [id number] Admin: 08/08/20 21:01 Dose: 100 mg Documented by: [id number] Admin: 08/08/20 08:50 Dose: 100 mg Documented by: [id number] Admin: 08/07/20 20:21 Dose: 100 mg Documented by: [id number] Admin: 08/07/20 08:16 Dose: 100 mg Documented by: [id number] Admin: 08/06/20 20:34 Dose: 100 mg Documented by: [id number] Gabapentin (Gabapentin 300 Mg Cap) 600 mg PO TID KIRSTEN Stop: 08/29/20 20:59 Last Admin: 08/09/20 07:58 Dose: 600 mg Documented by: [id number] Admin: 08/08/20 21:01 Dose: 600 mg Documented by: [id number] Admin: 08/08/20 13:03 Dose: 600 mg Documented by: [id number] Admin: 08/08/20 08:51 Dose: 600 mg Documented by: [id number] Admin: 08/07/20 20:19 Dose: 600 mg Documented by: [id number] Admin: 08/07/20 14:14 Dose: 600 mg Documented by: [id number] Admin: 08/07/20 08:16 Dose: 600 mg Documented by: [id number] Admin: 08/06/20 20:34 Dose: 600 mg Documented by: [id number] Admin: 08/06/20 14:27 Dose: 600 mg Documented by: [id number] Admin: 08/06/20 07:54 Dose: 600 mg Documented by: [id number] Admin: 08/05/20 21:06 Dose: 600 mg Documented by: [id number] Admin: 08/05/20 14:21 Dose: 600 mg Documented by: [id number] Admin: 08/05/20 08:42 Dose: 600 mg Documented by: [id number] Admin: 08/04/20 20:27 Dose: 600 mg Documented by: [id number] Admin: 08/04/20 15:59 Dose: 600 mg Documented by: [id number] Admin: 08/04/20 09:10 Dose: 600 mg Documented by: [id number] Admin: 08/03/20 20:43 Dose: 600 mg Documented by: [id number] Admin: 08/03/20 13:41 Dose: 600 mg Documented by: [id number] Admin: 08/03/20 07:48 Dose: 600 mg Documented by: [id number] Admin: 08/02/20 21:18 Dose: 600 mg Documented by: [id number] Admin: 08/02/20 14:45 Dose: 600 mg Documented by: [id number] Admin: 08/02/20 08:33 Dose: 600 mg Documented by: [id number] Admin: 08/01/20 20:43 Dose: 600 mg Documented by: [id number] Admin: 08/01/20 14:28 Dose: 600 mg Documented by: [id number] Admin: 08/01/20 09:27 Dose: 600 mg Documented by: [id number] Admin: 07/31/20 22:12 Dose: 600 mg Documented by: [id number] Admin: 07/31/20 13:33 Dose: 600 mg Documented by: [id number] Admin: 07/31/20 10:26 Dose: 600 mg Documented by: [id number] Admin: 07/30/20 20:42 Dose: 600 mg Documented by: [id number] Insulin Aspart (Insulin Aspart 100 Units/Ml 3 Ml Pen) 0 units SC ACHS KIRSTEN Stop: 08/29/20 09:14 Last Admin: 08/09/20 12:24 Dose: 5 units Documented by: [id number] Cosigned by: [id number] Admin: 08/09/20 08:02 Dose: 4 units Documented by: [id number] Cosigned by: [id number] Admin: 08/08/20 21:04 Dose: 4 units Documented by: [id number] Cosigned by: [id number] Admin: 08/08/20 18:08 Dose: 13 units Documented by: [id number] Cosigned by: [id number] Admin: 08/08/20 12:58 Dose: 13 units Documented by: [id number] Cosigned by: [id number] Admin: 08/08/20 08:26 Dose: 8 units Documented by: [id number] Cosigned by: [id number] Admin: 08/07/20 21:26 Dose: 5 units Documented by: [id number] Cosigned by: [id number] Admin: 08/07/20 17:59 Dose: 8 units Documented by: [id number] Cosigned by: [id number] Admin: 08/07/20 13:01 Dose: 5 units Documented by: [id number] Cosigned by: [id number] Admin: 08/07/20 09:09 Dose: 14 units Documented by: [id number] Cosigned by: [id number] Admin: 08/06/20 21:02 Dose: 3 units Documented by: [id number] Cosigned by: [id number] Admin: 08/06/20 17:56 Dose: 7 units Documented by: [id number] Cosigned by: [id number] Admin: 08/06/20 13:52 Dose: 4 units Documented by: [id number] Cosigned by: [id number] Admin: 08/06/20 08:48 Dose: 9 units Documented by: [id number] Cosigned by: [id number] Admin: 08/05/20 21:08 Dose: 2 units Documented by: [id number] Cosigned by: [id number] Admin: 08/05/20 18:02 Dose: 7 units Documented by: [id number] Cosigned by: [id number] Admin: 08/05/20 12:58 Dose: Not Given Documented by: [id number] Admin: 08/05/20 08:48 Dose: 8 units Documented by: [id number] Cosigned by: [id number] Admin: 08/04/20 20:38 Dose: 1 units Documented by: [id number] Cosigned by: [id number] Admin: 08/04/20 17:51 Dose: 4 units Documented by: [id number] Cosigned by: [id number] Admin: 08/04/20 13:45 Dose: Not Given Documented by: [id number] Cosigned by: [id number] Admin: 08/04/20 08:45 Dose: 7 units Documented by: [id number] Cosigned by: [id number] Admin: 08/03/20 21:19 Dose: 5 units Documented by: [id number] Cosigned by: [id number] Admin: 08/03/20 18:15 Dose: 11 units Documented by: [id number] Cosigned by: [id number] Admin: 08/03/20 13:44 Dose: 7 units Documented by: [id number] Cosigned by: [id number] Admin: 08/03/20 09:05 Dose: 6 units Documented by: [id number] Cosigned by: [id number] Admin: 08/02/20 21:15 Dose: 3 units Documented by: [id number] Cosigned by: [id number] Admin: 08/02/20 17:56 Dose: 9 units Documented by: [id number] Cosigned by: [id number] Admin: 08/02/20 12:50 Dose: 3 units Documented by: [id number] Cosigned by: [id number] Admin: 08/02/20 08:50 Dose: 8 units Documented by: [id number] Cosigned by: [id number] Admin: 08/01/20 20:53 Dose: 3 units Documented by: [id number] Cosigned by: [id number] Admin: 08/01/20 17:35 Dose: 9 units Documented by: [id number] Cosigned by: [id number] Admin: 08/01/20 13:15 Dose: 5 units Documented by: [id number] Cosigned by: [id number] Admin: 08/01/20 09:30 Dose: 4 units Documented by: [id number] Cosigned by: [id number] Admin: 07/31/20 22:14 Dose: 3 units Documented by: [id number] Cosigned by: [id number] Admin: 07/31/20 17:57 Dose: 10 units Documented by: [id number] Cosigned by: [id number] Admin: 07/31/20 13:35 Dose: 9 units Documented by: [id number] Cosigned by: [id number] Admin: 07/31/20 09:36 Dose: 1 units Documented by: [id number] Cosigned by: [id number] Admin: 07/30/20 20:44 Dose: 1 units Documented by: [id number] Cosigned by: [id number] Admin: 07/30/20 18:07 Dose: 9 units Documented by: [id number] Cosigned by: [id number] Admin: 07/30/20 13:11 Dose: 7 units Documented by: [id number] Cosigned by: [id number] Admin: 07/30/20 09:20 Dose: 2 units Documented by: [id number] Cosigned by: [id number] Insulin Glargine (Insulin Glargine Solostar 100 Units/Ml 3 Ml Pen) 15 units SC BID KIRSTEN Stop: 08/29/20 20:59 Last Admin: 08/09/20 08:01 Dose: 15 units Documented by: [id number] Cosigned by: [id number] Admin: 08/08/20 21:03 Dose: 15 units Documented by: [id number] Cosigned by: [id number] Admin: 08/08/20 08:26 Dose: 15 units Documented by: [id number] Cosigned by: [id number] Admin: 08/07/20 21:26 Dose: 15 units Documented by: [id number] Cosigned by: [id number] Admin: 08/07/20 09:08 Dose: 15 units Documented by: [id number] Cosigned by: [id number] Admin: 08/06/20 21:02 Dose: 15 units Documented by: [id number] Cosigned by: [id number] Admin: 08/06/20 08:50 Dose: 15 units Documented by: [id number] Cosigned by: [id number] Admin: 08/05/20 21:09 Dose: 15 units Documented by: [id number] Cosigned by: [id number] Admin: 08/05/20 08:46 Dose: 15 units Documented by: [id number] Cosigned by: [id number] Admin: 08/04/20 20:39 Dose: 15 units Documented by: [id number] Cosigned by: [id number] Admin: 08/04/20 08:47 Dose: 15 units Documented by: [id number] Cosigned by: [id number] Admin: 08/03/20 21:18 Dose: 15 units Documented by: [id number] Cosigned by: [id number] Admin: 08/03/20 09:08 Dose: 15 units Documented by: [id number] Cosigned by: [id number] Admin: 08/02/20 21:13 Dose: 15 units Documented by: [id number] Cosigned by: [id number] Admin: 08/02/20 08:50 Dose: 15 units Documented by: [id number] Cosigned by: [id number] Admin: 08/01/20 20:46 Dose: 15 units Documented by: [id number] Cosigned by: [id number] Admin: 08/01/20 09:29 Dose: 15 units Documented by: [id number] Cosigned by: [id number] Admin: 07/31/20 22:13 Dose: 15 units Documented by: [id number] Cosigned by: [id number] Admin: 07/31/20 09:35 Dose: 15 units Documented by: [id number] Cosigned by: [id number] Admin: 07/30/20 20:43 Dose: 15 units Documented by: [id number] Cosigned by: [id number] Levetiracetam (Levetiracetam 500 Mg Tab) 1,000 mg PO Q12 KIRSTEN Stop: 08/30/20 20:59 Last Admin: 08/09/20 07:54 Dose: 1,000 mg Documented by: [id number] Admin: 08/08/20 21:00 Dose: 1,000 mg Documented by: [id number] Admin: 08/08/20 08:51 Dose: 1,000 mg Documented by: [id number] Admin: 08/07/20 20:20 Dose: 1,000 mg Documented by: [id number] Admin: 08/07/20 08:13 Dose: 1,000 mg Documented by: [id number] Admin: 08/06/20 20:33 Dose: 1,000 mg Documented by: [id number] Admin: 08/06/20 07:50 Dose: 1,000 mg Documented by: [id number] Admin: 08/05/20 21:11 Dose: 1,000 mg Documented by: [id number] Admin: 08/05/20 08:44 Dose: 1,000 mg Documented by: [id number] Admin: 08/04/20 20:30 Dose: 1,000 mg Documented by: [id number] Admin: 08/04/20 09:09 Dose: 1,000 mg Documented by: [id number] Admin: 08/03/20 20:42 Dose: 1,000 mg Documented by: [id number] Admin: 08/03/20 07:48 Dose: 1,000 mg Documented by: [id number] Admin: 08/02/20 21:20 Dose: 1,000 mg Documented by: [id number] Admin: 08/02/20 08:31 Dose: 1,000 mg Documented by: [id number] Admin: 08/01/20 20:45 Dose: 1,000 mg Documented by: [id number] Admin: 08/01/20 09:16 Dose: 1,000 mg Documented by: [id number] Admin: 07/31/20 22:31 Dose: 1,000 mg Documented by: [id number] Magnesium Oxide (Magnesium Oxide 400 Mg Tab) 400 mg PO BID KIRSTEN Stop: 08/29/20 20:59 Last Admin: 08/09/20 07:57 Dose: 400 mg Documented by: [id number] Admin: 08/08/20 21:01 Dose: 400 mg Documented by: [id number] Admin: 08/08/20 08:51 Dose: 400 mg Documented by: [id number] Admin: 08/07/20 20:20 Dose: 400 mg Documented by: [id number] Admin: 08/07/20 08:15 Dose: 400 mg Documented by: [id number] Admin: 08/06/20 20:33 Dose: 400 mg Documented by: [id number] Admin: 08/06/20 07:51 Dose: 400 mg Documented by: [id number] Admin: 08/05/20 21:06 Dose: 400 mg Documented by: [id number] Admin: 08/05/20 08:44 Dose: 400 mg Documented by: [id number] Admin: 08/04/20 20:31 Dose: 400 mg Documented by: [id number] Admin: 08/04/20 09:08 Dose: 400 mg Documented by: [id number] Admin: 08/03/20 20:43 Dose: 400 mg Documented by: [id number] Admin: 08/03/20 07:47 Dose: 400 mg Documented by: [id number] Admin: 08/02/20 21:20 Dose: 400 mg Documented by: [id number] Admin: 08/02/20 08:31 Dose: 400 mg Documented by: [id number] Admin: 08/01/20 20:46 Dose: 400 mg Documented by: [id number] Admin: 08/01/20 09:18 Dose: 400 mg Documented by: [id number] Admin: 07/31/20 22:10 Dose: 400 mg Documented by: [id number] Admin: 07/31/20 09:28 Dose: 400 mg Documented by: [id number] Admin: 07/30/20 21:03 Dose: 400 mg Documented by: [id number] Metoprolol Tartrate (Metoprolol Tartrate 1 Mg/Ml Vial) 5 mg IV Q5M PRN PRN Reason: Tachycardia Stop: 08/24/20 02:21 Last Admin: 07/25/20 02:36 Dose: 2.5 mg Documented by: [id number] Naloxone HCl (Naloxone Hcl 0.4 Mg/1 Ml Vial/Carp) 0.1 mg IV Q5M PRN; Protocol PRN Reason: Oversedation/Resp Depression Stop: 08/19/20 17:41 Last Admin: 07/21/20 21:28 Dose: 0.1 mg Documented by: [id number] Oxycodone HCl (Oxycodone Hcl Ir 5 Mg Tab (Immediate Release)) 5 mg PO Q6 PRN PRN Reason: Pain Stop: 08/20/20 10:01 Last Admin: 08/07/20 14:14 Dose: 5 mg Documented by: [id number] Admin: 08/06/20 14:25 Dose: 5 mg Documented by: [id number] Polyethylene Glycol (Polyethylene (Miralax) 17 Gm Pack) 17 - 34 gm PO DAILY PRN PRN Reason: Constipation Stop: 09/06/20 09:17 Last Admin: 08/08/20 08:32 Dose: 34 gm Documented by: [id number] Admin: 08/07/20 19:44 Dose: 17 gm Documented by: [id number] Admin: 08/07/20 13:07 Dose: 34 gm Documented by: [id number] Potassium Chloride (Potassium Chloride Pwd 20 Meq Pack) 20 meq PO BID KIRSTEN Stop: 08/29/20 20:59 Last Admin: 08/09/20 07:54 Dose: 20 meq Documented by: [id number] Admin: 08/08/20 21:01 Dose: 20 meq Documented by: [id number] Admin: 08/08/20 08:50 Dose: 20 meq Documented by: [id number] Admin: 08/07/20 20:19 Dose: 20 meq Documented by: [id number] Admin: 08/07/20 08:15 Dose: 20 meq Documented by: [id number] Admin: 08/06/20 20:32 Dose: 20 meq Documented by: [id number] Admin: 08/06/20 07:50 Dose: 20 meq Documented by: [id number] Admin: 08/05/20 21:06 Dose: 20 meq Documented by: [id number] Admin: 08/05/20 08:43 Dose: 20 meq Documented by: [id number] Admin: 08/04/20 20:28 Dose: 20 meq Documented by: [id number] Admin: 08/04/20 09:08 Dose: 20 meq Documented by: [id number] Admin: 08/03/20 20:43 Dose: 20 meq Documented by: [id number] Admin: 08/03/20 07:49 Dose: 20 meq Documented by: [id number] Admin: 08/02/20 21:20 Dose: 20 meq Documented by: [id number] Admin: 08/02/20 08:31 Dose: 20 meq Documented by: [id number] Admin: 08/01/20 20:45 Dose: 20 meq Documented by: [id number] Admin: 08/01/20 09:20 Dose: 20 meq Documented by: [id number] Admin: 07/31/20 22:10 Dose: 20 meq Documented by: [id number] Admin: 07/31/20 09:30 Dose: 20 meq Documented by: [id number] Admin: 07/30/20 21:03 Dose: 20 meq Documented by: [id number] Prednisone (Prednisone 10 Mg Tablet) 10 mg PO DAILY KIRSTEN Stop: 08/24/20 08:59 Last Admin: 08/09/20 07:59 Dose: 10 mg Documented by: [id number] Admin: 08/08/20 08:51 Dose: 10 mg Documented by: [id number] Admin: 08/07/20 08:13 Dose: 10 mg Documented by: [id number] Admin: 08/06/20 07:50 Dose: 10 mg Documented by: [id number] Admin: 08/05/20 08:43 Dose: 10 mg Documented by: [id number] Admin: 08/04/20 09:09 Dose: 10 mg Documented by: [id number] Admin: 08/03/20 07:45 Dose: 10 mg Documented by: [id number] Admin: 08/02/20 08:31 Dose: 10 mg Documented by: [id number] Admin: 08/01/20 09:20 Dose: 10 mg Documented by: [id number] Admin: 07/31/20 09:32 Dose: 10 mg Documented by: [id number] Admin: 07/30/20 08:41 Dose: 10 mg Documented by: [id number] Admin: 07/29/20 08:37 Dose: 10 mg Documented by: [id number] Admin: 07/28/20 08:25 Dose: 10 mg Documented by: [id number] Admin: 07/27/20 09:25 Dose: 10 mg Documented by: [id number] Admin: 07/26/20 08:18 Dose: 10 mg Documented by: [id number] Admin: 07/25/20 08:33 Dose: 10 mg Documented by: [id number] Terbinafine HCl (Terbinafine Cr 30 Gm Tube) 1 appln EXT BID KIRSTEN Stop: 08/11/20 20:59 Last Admin: 08/09/20 07:55 Dose: 1 appln Documented by: [id number] Admin: 08/08/20 21:01 Dose: 1 appln Documented by: [id number] Admin: 08/08/20 08:55 Dose: 1 appln Documented by: [id number] Admin: 08/07/20 20:20 Dose: 1 appln Documented by: [id number] Admin: 08/07/20 08:13 Dose: 1 appln Documented by: [id number] Admin: 08/06/20 20:34 Dose: 1 appln Documented by: [id number] Admin: 08/06/20 07:52 Dose: 1 appln Documented by: [id number] Admin: 08/05/20 21:10 Dose: 1 appln Documented by: [id number] Admin: 08/05/20 08:45 Dose: 1 appln Documented by: [id number] Admin: 08/04/20 20:31 Dose: 1 appln Documented by: [id number] Admin: 08/04/20 09:11 Dose: 1 appln Documented by: [id number] Admin: 08/03/20 20:43 Dose: 1 appln Documented by: [id number] Admin: 08/03/20 07:56 Dose: 1 appln Documented by: [id number] Admin: 08/02/20 21:21 Dose: 1 appln Documented by: [id number] Admin: 08/02/20 08:30 Dose: 1 appln Documented by: [id number] Admin: 08/01/20 20:45 Dose: Not Given Documented by: [id number] Admin: 08/01/20 09:27 Dose: 1 appln Documented by: [id number] Admin: 07/31/20 22:16 Dose: 1 appln Documented by: [id number] Admin: 07/31/20 09:31 Dose: 1 appln Documented by: [id number] Admin: 07/30/20 20:43 Dose: 1 appln Documented by: [id number] Admin: 07/30/20 08:24 Dose: 1 appln Documented by: [id number] Admin: 07/29/20 20:40 Dose: 1 appln Documented by: [id number] Admin: 07/29/20 08:20 Dose: 1 appln Documented by: [id number] Admin: 07/28/20 20:13 Dose: Not Given Documented by: [id number] Admin: 07/28/20 08:13 Dose: Not Given Documented by: [id number] Admin: 07/27/20 20:45 Dose: Not Given Documented by: [id number] Admin: 07/27/20 09:22 Dose: Not Given Documented by: [id number] Admin: 07/26/20 23:40 Dose: Not Given Documented by: [id number] Admin: 07/26/20 08:16 Dose: 1 appln Documented by: [id number] Admin: 07/25/20 20:14 Dose: 1 appln Documented by: [id number] Admin: 07/25/20 08:33 Dose: 1 appln Documented by: [id number] Admin: 07/24/20 21:49 Dose: 1 appln Documented by: [id number] Admin: 07/24/20 11:42 Dose: Not Given Documented by: [id number] Admin: 07/23/20 19:52 Dose: 1 appln Documented by: [id number] Admin: 07/23/20 08:43 Dose: 1 appln Documented by: [id number] Admin: 07/22/20 20:48 Dose: Not Given Documented by: [id number] Admin: 07/22/20 07:49 Dose: Not Given Documented by: [id number] Admin: 07/21/20 22:38 Dose: Not Given Documented by: [id number] Admin: 07/21/20 08:07 Dose: Not Given Documented by: [id number] Admin: 07/20/20 21:54 Dose: 1 appln Documented by: [id number] Admin: 07/20/20 08:06 Dose: 1 appln Documented by: [id number] Admin: 07/19/20 21:00 Dose: 1 appln Documented by: [id number] Admin: 07/19/20 08:41 Dose: 1 appln Documented by: [id number] Admin: 07/18/20 21:03 Dose: 1 appln Documented by: [id number] Admin: 07/18/20 08:13 Dose: 1 appln Documented by: [id number] Admin: 07/17/20 22:16 Dose: 1 appln Documented by: [id number] Admin: 07/17/20 08:22 Dose: 1 appln Documented by: [id number] Admin: 07/16/20 20:55 Dose: 1 appln Documented by: [id number] Admin: 07/16/20 08:05 Dose: 1 appln Documented by: [id number] Admin: 07/15/20 21:01 Dose: 1 appln Documented by: [id number] Admin: 07/15/20 07:57 Dose: 1 appln Documented by: [id number] Admin: 07/14/20 20:33 Dose: 1 appln Documented by: [id number] Admin: 07/14/20 08:00 Dose: 1 appln Documented by: [id number] Admin: 07/13/20 21:52 Dose: 1 appln Documented by: [id number] Admin: 07/13/20 08:17 Dose: 1 appln Documented by: [id number] Admin: 07/12/20 20:21 Dose: 1 appln Documented by: [id number] Topiramate (Topiramate 100 Mg Tab) 100 mg PO BID KIRSTEN Stop: 08/23/20 20:59 Last Admin: 08/09/20 07:59 Dose: 100 mg Documented by: [id number] Admin: 08/08/20 21:00 Dose: 100 mg Documented by: [id number] Admin: 08/08/20 08:51 Dose: 100 mg Documented by: [id number] Admin: 08/07/20 20:20 Dose: 100 mg Documented by: [id number] Admin: 08/07/20 08:14 Dose: 100 mg Documented by: [id number] Admin: 08/06/20 20:33 Dose: 100 mg Documented by: [id number] Admin: 08/06/20 07:50 Dose: 100 mg Documented by: [id number] Admin: 08/05/20 21:06 Dose: 100 mg Documented by: [id number] Admin: 08/05/20 08:45 Dose: 100 mg Documented by: [id number] Admin: 08/04/20 20:31 Dose: 100 mg Documented by: [id number] Admin: 08/04/20 09:08 Dose: 100 mg Documented by: [id number] Admin: 08/03/20 20:42 Dose: 100 mg Documented by: [id number] Admin: 08/03/20 07:45 Dose: 100 mg Documented by: [id number] Admin: 08/02/20 21:19 Dose: 100 mg Documented by: [id number] Admin: 08/02/20 08:31 Dose: 100 mg Documented by: [id number] Admin: 08/01/20 20:56 Dose: 100 mg Documented by: [id number] Admin: 08/01/20 09:18 Dose: 100 mg Documented by: [id number] Admin: 07/31/20 22:11 Dose: 100 mg Documented by: [id number] Admin: 07/31/20 09:33 Dose: 100 mg Documented by: [id number] Admin: 07/30/20 20:41 Dose: 100 mg Documented by: [id number] Admin: 07/30/20 08:41 Dose: 100 mg Documented by: [id number] Admin: 07/29/20 20:41 Dose: Not Given Documented by: [id number] Admin: 07/29/20 08:37 Dose: 100 mg Documented by: [id number] Admin: 07/28/20 20:14 Dose: 100 mg Documented by: [id number] Admin: 07/28/20 08:25 Dose: 100 mg Documented by: [id number] Admin: 07/27/20 20:46 Dose: 100 mg Documented by: [id number] Admin: 07/27/20 09:24 Dose: 100 mg Documented by: [id number] Admin: 07/26/20 23:44 Dose: 100 mg Documented by: [id number] Admin: 07/26/20 08:18 Dose: 100 mg Documented by: [id number] Admin: 07/25/20 20:13 Dose: 100 mg Documented by: [id number] Admin: 07/25/20 08:34 Dose: 100 mg Documented by: [id number] Admin: 07/24/20 21:53 Dose: 100 mg Documented by: [id number] Triamcinolone Acetonide (Triamcinolone Acet 0.1% Oint 80 Gm Tube) 1 appln EXT Q12H PRN PRN Reason: pruritis Stop: 08/11/20 00:15 Last Admin: 07/16/20 08:04 Dose: 1 appln Documented by: [id number] Admin: 07/13/20 21:51 Dose: 1 appln Documented by: [id number] Admin: 07/13/20 21:34 Dose: 1 appln Documented by: [id number] Admin: 07/12/20 10:07 Dose: 1 appln Documented by: [id number] Coding Level of Care Code 08809 [facility] Intl Hosp Care Lvl 3
[2020-08-09] MEDS: ALBUT/IPRATROP 3MG/0.5MG NEB 3 ML VIAL INH PRN (19:42)
--- NOTE | 2020-08-09 20:33 | Billing Data ---
Date of Service August 09, 2020 Coding Level of Care Code 64555 Subseq Hosp Care Lvl 1
[2020-08-10 06:26] LABS: Hematocrit (blood only) 31.2 % (42-52); Hemoglobin 9.8 g/dL (14.0-18.0); Mean Corpuscular Hemoglobin 27.2 pg (25-34); Mean Corpuscular Hgb Conc 31.4 g/dL (32-36); Mean Corpuscular Volume 86.7 fL (80-100); Platelet Count 231 K/uL (130-400); RDW Coefficient of Variation 15.9 % (11.5-14.5); RDW Standard Deviation 50.9 fL (36.4-46.3); White Blood Count 3.54 K/uL (4.8-10.8)
[2020-08-10 06:54] LABS: BUN Creatinine Ratio 29.8 (10-20); Calcium 9.1 mg/dl (8.5-10.1); Creatinine Clr Calc Pharmacy 75.8 ml/min; Est GFR (African American) 80.1; Est GFR (Non-African American) 69.1; Potassium 4.1 mmol/L (3.5-5.1)
[2020-08-10] MEDS: TERBINAFINE CR 30 GM TUBE EXT SCH ×2 (08:49→20:07)
[2020-08-10] MEDS: levETIRAcetam 500 MG TAB PO SCH ×2 (08:49→20:07)
[2020-08-10] MEDS: POTASSIUM CHLORIDE PWD 20 MEQ PACK PO SCH ×2 (08:49→20:06)
[2020-08-10] MEDS: CALCIUM CARBONATE 1,250 MG/5 ML UDC PO SCH ×2 (08:49→20:06)
[2020-08-10] MEDS: MAGNESIUM OXIDE 400 MG TAB PO SCH ×2 (08:50→20:07)
[2020-08-10] MEDS: ENOXAPARIN 100 MG/1ML SYR SQ SCH ×2 (08:50→20:08)
[2020-08-10] MEDS: CARBIDOPA/LEVODOPA 25/100MG TAB PO SCH ×3 (08:51→20:07)
[2020-08-10] MEDS: allopurinoL 100 MG TAB PO SCH (08:52)
[2020-08-10] MEDS: TOPIRAMATE 100 MG TAB PO SCH ×2 (08:52→20:07)
[2020-08-10] MEDS: predniSONE 10 MG TABLET PO SCH (08:52)
[2020-08-10] MEDS: GABAPENTIN 300 MG CAP PO SCH ×3 (08:52→20:06)
[2020-08-10] MEDS: INSULIN GLARGINE SOLOSTAR 100 UNITS/ML 3 ML PEN SC SCH ×2 (08:57→20:58)
[2020-08-10] MEDS: INSULIN ASPART 100 UNITS/ML 3 ML PEN SC SCH ×4 (08:59→20:59)
--- NOTE | 2020-08-10 11:05 | Hospitalist Progress Note ---
Date of Service August 10, 2020 Assessment & Plan (1) Aspiration pneumonia: 75yo M with ILD (baseline 2L NC at nighttime), parkinson's, CKD3, IDDM2, paroxysmal afib, AV valve replacement, HLD, lumbar spinal stenosis p/w worsening dyspnea, weakness, falls, dysphagia, malnutrition, and encephalopathy. Awaiting insurance appeal for discharge to SNF. Suicidal Ideation - patient endorses thoughts of killing himself if discharged home without rehab, but does not have plan, no previous attempts, has good support system, no previous psych hx - low risk - Psych consulted - recommends SSRI if symptoms persist, agrees that no acute suicide risk while in the hospital - continue to monitor Aspiration pneumonia, Chronic ILD -finished abx - unasyn discontinued 08/01 -continue chronic prednisone, continue albuterol Swallowing dysfunction -appreciate ongoing speech therapy recommendations -pured diet with honey thick liquids, strict aspiration precautions -patient prefers a more comfort-based approach; has opted to stick with honey- thick pureed as opposed to NG/PEG -tolerating this diet well so far and can take meds either crushed or placed in pudding Malnutrition, electrolyte abnormalities -hypokalemia, hypophosphatemia, hypomagnesemia, hypocalcemia resolved; patient electrolyte levels are remaining stable with oral supplementation, will continue repletion as below: -potassium chloride 20mEq bid -magnesium oxide 400mg bid -calcium carbonate 1250mg bid Presyncopal event, fall Presyncopal event (08/07) while ambulating on unit, legs became weak, patient was helped into chair and then back into bed without issue, no LOC, VSS. Mechanical fall x1 overnight (08/07-08/08) unwitnessed/unreported by patient until morning rounds, reports fell on left hip and then pulled himself back into bed. -obtain orthostatic vital signs -low suspicion for arrhythmia, will hold off on EKG for now but consider if presyncope recurs -symptoms likely 2/2 deconditioning; continue PT/OT -encouraged calling RN for assistance getting OOB every time Atrial fibrillation -07/25: episode asymptomatic afib with RVR to the 140s - improved to 90-100s with 2.5mg lopressor -continue to monitor -holding eliquis due to swallowing dysfunction initially, continue lovenox History of AV valve replacement -No concerns. Neurogenic claudication - s/p spine surgery 07/20/20 -cleared from an orthopedic standpoint -continue gabapentin, continue PT/OT -08/05: complained of back pain. Spoke to ortho - xray done - unchanged. added oxycodone 5mg PO q6h, will reevaluate daily Encephalopathy -resolved; was likely 2/2 aspiration pneumonia, hospitalization, tube feeds, -continue to monitor Parkinson's -continue carbidopa/levodopa IDDM2 -holding trulicity -glargine adjusted on 07/30 to 15u bid (from 20u bid) as transition from tube feeds to PO resulted in slightly lower overall intake -CF adjusted to 25, CHO adjusted to 8 per pharmacy suggestion; appreciate ongoing pharmacy recs for glycemic control -SSI -continue to monitor CKD3 -BUN, Cr reassuring and stable; continue to monitor Tinea cruris -continue terbinafine cream Constipation -continue miralax 1-2 packets as needed Dispo -08/03: [id number] completed - SNF subsequently denied, insurance feels needs can be met with lower level of care (home health) -08/05: [id number] completed to appeal SNF denial -08/06: SNF again denied by insurance. Patient and family notified. Per , only other option is member appeal - patient discussed with family; patient completed member appeal call, awaiting insurance company response FENGI: honey-thick pureed diet as above DVT ppx: lovenox Code status: DNR/DNI Dispo: pending placement Admission and Anticipated Discharge Date Admission Date: July 10, 2020 Supervising Physician Co-Signing Physician Notes I personally examined the patient and verified all peña points of history and exam, discussed case, and agree with decision making with Dr George. physically feeling better. emotionally very distraught about the prospect of having to go home. appeal in process. Vitals noted, he is awake and alert pleasant no distress. HEENT normocephalic atraumatic mucous membranes moist. Breathing is unlabored no accessory muscle use good effort. Shows no focal neuro deficits. Dysphagia/aspirationcontinue speech and supportive care. He is stable in this regard, but does appear to have ongoing needs for a modified diet and speech therapy that would be very difficult to do at home. Weakness/deconditioning/neurogenic claudicationcontinue PT/OT. He is continuing to show a plateau of a 6 clicks score of 16, which seems ideal for SNF or rehab. Discharge planning issuesit is utterly unbelievable to me that his insurance company would repeatedly deny SNF. Rehab even seems quite reasonably appropriate given his situation, and SNF level of care absolutely reasonable if rehab was denied. I cannot fathom what logic they would be utilizing to deny SNF level care for him, given his overall situation, surgery, weakness, dysphagia, and need for ongoing PT/OT/speech therapy, as well as medical supervision. Again all of that pleads a fairly strong case for rehab, and if this were not the case, then definitely SNF. Outside of some contractual technicality or blatant financial motivation, I cannot see how ongoing supervised care with ongoing therapy would be deemed not necessary in his situation. I am hopeful that the current round of appeals will yield approval for SNF level of care, and if not, we may need to consider extreme measures such as the state insurance commission for oversight on what seems to be a truly unconscionable decision by [employer] Subjective No acute events overnight. Still waiting for decision from insurance company about SNF. Reports feeling more "upbeat" this morning after conversion with me and with Psychiatrist yesterday. Ate a good breakfast this morning and walked almost 100 feet with PT yesterday. Denies fever/chills, chest pain, palpitations, SOB, N/V, abdominal pain. Review of Systems Review of Systems: Pertinent positives and negatives mentioned in HPI. Physical Exam Physical Exam: General: A&Ox3. NAD. Cooperative. HEENT: Atraumatic, normocephalic. Pulm: CTAB A&P. -wheezes, -rales, -rhonchi. Symmetrical chest rise. No increase work of breathing. No respiratory distress. Cardiac: RRR, -mrg. Radial pulses intact and symmetrical. Abdominal: soft, non-tender, non-distended, BS x 4 Results & Data Results & Data ([facility]) Vital Signs (Past 12 Hours) Vital Signs Temp Pulse Resp BP Pulse Ox 08/10/20 08:17 36.8 C 89 18 98/65 L 96 Resident Activity Tracking Resident Involvement: Resident Care Provided Care Provided: Adult [facility] Medicine
--- NOTE | 2020-08-10 20:11 | Billing Data ---
Date of Service August 10, 2020 Coding Level of Care Code 16747 Subseq Hosp Care Lvl 2
[2020-08-10] MEDS: POLYETHYLENE (MIRALAX) 17 GM PACK PO PRN (20:58)
[2020-08-11] MEDS: CARBIDOPA/LEVODOPA 25/100MG TAB PO SCH ×3 (08:00→21:24)
[2020-08-11] MEDS: predniSONE 10 MG TABLET PO SCH (08:00)
[2020-08-11] MEDS: allopurinoL 100 MG TAB PO SCH (08:02)
[2020-08-11] MEDS: TOPIRAMATE 100 MG TAB PO SCH ×2 (08:02→21:24)
[2020-08-11] MEDS: CALCIUM CARBONATE 1,250 MG/5 ML UDC PO SCH ×2 (08:02→21:24)
[2020-08-11] MEDS: levETIRAcetam 500 MG TAB PO SCH ×2 (08:02→21:26)
[2020-08-11] MEDS: MAGNESIUM OXIDE 400 MG TAB PO SCH ×2 (08:02→21:24)
[2020-08-11] MEDS: POTASSIUM CHLORIDE PWD 20 MEQ PACK PO SCH ×2 (08:03→21:24)
[2020-08-11] MEDS: ENOXAPARIN 100 MG/1ML SYR SQ SCH ×2 (08:03→21:25)
[2020-08-11] MEDS: GABAPENTIN 300 MG CAP PO SCH ×3 (08:03→21:26)
[2020-08-11] MEDS: TERBINAFINE CR 30 GM TUBE EXT SCH (08:04)
[2020-08-11] MEDS: INSULIN GLARGINE SOLOSTAR 100 UNITS/ML 3 ML PEN SC SCH ×2 (08:40→21:20)
[2020-08-11] MEDS: INSULIN ASPART 100 UNITS/ML 3 ML PEN SC SCH ×4 (08:42→21:20)
--- NOTE | 2020-08-11 12:09 | Hospitalist Progress Note ---
Date of Service August 11, 2020 Assessment & Plan (1) Aspiration pneumonia: 75yo M with ILD (baseline 2L NC at nighttime), parkinson's, CKD3, IDDM2, paroxysmal afib, AV valve replacement, HLD, lumbar spinal stenosis p/w worsening dyspnea, weakness, falls, dysphagia, malnutrition, and encephalopathy. Awaiting insurance appeal for discharge to SNF. Dispo Issues - rejected at acute rehab facility and at SNF, initial appeal rejected, now awaiting decision on appeal from family Suicidal Ideation - patient endorses thoughts of killing himself if discharged home without rehab, but does not have plan, no previous attempts, has good support system, no previous psych hx - low risk - Psych consulted - recommends SSRI if symptoms persist, agrees that no acute suicide risk while in the hospital - reports improvement in mood since speaking with me and Psychiatry on 08/09 - continue to monitor Aspiration pneumonia, Chronic ILD -finished abx - unasyn discontinued 08/01 -continue chronic prednisone, continue albuterol Swallowing dysfunction -appreciate ongoing speech therapy recommendations -pured diet with honey thick liquids, strict aspiration precautions -patient prefers a more comfort-based approach; has opted to stick with honey- thick pureed as opposed to NG/PEG -tolerating this diet well so far and can take meds either crushed or placed in pudding Malnutrition, electrolyte abnormalities -hypokalemia, hypophosphatemia, hypomagnesemia, hypocalcemia resolved; patient electrolyte levels are remaining stable with oral supplementation, will continue repletion as below: -potassium chloride 20mEq bid -magnesium oxide 400mg bid -calcium carbonate 1250mg bid Presyncopal event, fall Presyncopal event (08/07) while ambulating on unit, legs became weak, patient was helped into chair and then back into bed without issue, no LOC, VSS. Mechanical fall x1 overnight (08/07-08/08) unwitnessed/unreported by patient until morning rounds, reports fell on left hip and then pulled himself back into bed. -obtain orthostatic vital signs -low suspicion for arrhythmia, will hold off on EKG for now but consider if pr esyncope recurs -symptoms likely 2/2 deconditioning; continue PT/OT -encouraged calling RN for assistance getting OOB every time Atrial fibrillation -07/25: episode asymptomatic afib with RVR to the 140s - improved to 90-100s with 2.5mg lopressor -continue to monitor -holding eliquis due to swallowing dysfunction initially, continue lovenox History of AV valve replacement -No concerns. Neurogenic claudication - s/p spine surgery 07/20/20 -cleared from an orthopedic standpoint -continue gabapentin, continue PT/OT -08/05: complained of back pain. Spoke to ortho - xray done - unchanged. added oxycodone 5mg PO q6h, will reevaluate daily Encephalopathy -resolved; was likely 2/2 aspiration pneumonia, hospitalization, tube feeds, -continue to monitor Parkinson's -continue carbidopa/levodopa IDDM2 -holding trulicity -glargine adjusted on 07/30 to 15u bid (from 20u bid) as transition from tube feeds to PO resulted in slightly lower overall intake -CF adjusted to 25, CHO adjusted to 8 per pharmacy suggestion; appreciate ongoing pharmacy recs for glycemic control -SSI -continue to monitor CKD3 -BUN, Cr reassuring and stable; continue to monitor Tinea cruris -continue terbinafine cream Constipation -continue miralax 1-2 packets as needed FENGI: honey-thick pureed diet as above DVT ppx: lovenox Code status: DNR/DNI Dispo: pending placement Admission and Anticipated Discharge Date Admission Date: July 10, 2020 Supervising Physician Co-Signing Physician Notes I personally examined the patient and verified all peña points of history and exam, discussed case, and agree with decision making with Dr George. doing ok. no new problems. still awaiting appeal decision Vitals noted, he is awake and alert pleasant no distress. HEENT normocephalic atraumatic mucous membranes moist. Breathing is unlabored no accessory muscle use good effort. Shows no focal neuro deficits. Dysphagia/aspirationcontinue speech and supportive care. He is stable in this regard, but does appear to have ongoing needs for a modified diet and speech therapy that would be very difficult to do at home. should have ongoing speech therapy as outpt. Weakness/deconditioning/neurogenic claudicationcontinue PT/OT. He is continuing to show a plateau of a 6 clicks score of 16, which seems ideal for SNF or rehab. continue PT/OT here while insurance company hopefully finds the ethics to make an appropriate decision based on his needs rather than bottom line driven metrics. Discharge planning issuesit is utterly unbelievable to me that his insurance company would repeatedly deny SNF. Rehab even seems quite reasonably appropriate given his situation, and SNF level of care absolutely reasonable if rehab was denied. I cannot fathom what logic they would be utilizing to deny SNF level care for him, given his overall situation, surgery, weakness, dysphagia, and need for ongoing PT/OT/speech therapy, as well as medical supervision. Again all of that pleads a fairly strong case for rehab, and if this were not the case, then definitely SNF. Outside of some contractual technicality or blatant financial motivation, I cannot see how ongoing supervised care with ongoing therapy would be deemed not necessary in his situation. I am hopeful that the current round of appeals will yield approval for SNF level of care, and if not, we may need to consider extreme measures such as the state insurance commission for oversight on what seems to be a truly unconscionable decision by [employer] Patient reports that he got lightheaded while he was sitting on the toilet overnight and needed to be helped back to his bed by several nurses. No LOC or fall. This morning reports doing well overall and his mood is "good". Denies fever/chills, chest pain, SOB, N/V, abdominal pain. Review of Systems Review of Systems: Pertinent positives and negatives mentioned in HPI. Physical Exam Physical Exam: General: A&Ox3. NAD. Cooperative. HEENT: Atraumatic, normocephalic. Pulm: CTAB A&P. -wheezes, -rales, -rhonchi. Symmetrical chest rise. No increase work of breathing. No respiratory distress. Cardiac: RRR, -mrg. Radial pulses intact and symmetrical. Abdominal: soft, non-tender, non-distended, BS x 4 Results & Data Results & Data ([facility]) Vital Signs (Past 12 Hours) Vital Signs Temp Pulse Resp BP BP Pulse Ox 08/11/20 08:25 36.7 C 75 16 98/62 L 98 08/11/20 04:03 37.1 C 93 H 18 116/68 99 08/11/20 04:00 112 H 18 101/60 98 Resident Activity Tracking Resident Involvement: Resident Care Provided Care Provided: [facility]
--- NOTE | 2020-08-11 19:30 | Billing Data ---
Date of Service August 11, 2020 Coding Level of Care Code 72286 Subseq Hosp Care Lvl 2
[2020-08-11] MEDS ORDERED: ALBUT/IPRATROP 3MG/0.5MG NEB 3 ML VIAL NEB PRN (21:08)
[2020-08-12] MEDS: allopurinoL 100 MG TAB PO SCH (07:28)
[2020-08-12] MEDS: MAGNESIUM OXIDE 400 MG TAB PO SCH (07:28)
[2020-08-12] MEDS: levETIRAcetam 500 MG TAB PO SCH (07:28)
[2020-08-12] MEDS: CARBIDOPA/LEVODOPA 25/100MG TAB PO SCH ×2 (07:28→13:19)
[2020-08-12] MEDS: CALCIUM CARBONATE 1,250 MG/5 ML UDC PO SCH (07:28)
[2020-08-12] MEDS: predniSONE 10 MG TABLET PO SCH (07:29)
[2020-08-12] MEDS: GABAPENTIN 300 MG CAP PO SCH ×2 (07:29→13:20)
[2020-08-12] MEDS: TOPIRAMATE 100 MG TAB PO SCH (07:29)
[2020-08-12] MEDS: POTASSIUM CHLORIDE PWD 20 MEQ PACK PO SCH (07:30)
[2020-08-12] MEDS: ENOXAPARIN 100 MG/1ML SYR SQ SCH (07:30)
[2020-08-12] MEDS: INSULIN GLARGINE SOLOSTAR 100 UNITS/ML 3 ML PEN SC SCH (08:42)
[2020-08-12] MEDS: INSULIN ASPART 100 UNITS/ML 3 ML PEN SC SCH ×2 (08:43→12:33)
--- NOTE | 2020-08-12 10:20 | Discharge Summary ---
Date of Service August 12, 2020 Admission HPI Per Admitting Provider Xavi Bradford is a 75-year-old male with PMH significant for paroxysmal atrial fibrillation, mechanical aortic valve replacement, hyperlipidemia, diabetes, parkinsonism, interstitial lung disease on 2 L nasal cannula at night, lumbar spinal stenosis, and frequent falls; who presented to the ER for multiple concerns, in the setting of feeling short of breath and numerous/frequent falls. Of note patient was recently in the hospital and discharged on 06/07 following recent fall and hit to the head while on warfarin, patient at that time did not want to go to [facility] out of concern for need for Covid vaccination. Subsequently has received both Covid vaccines over the last month. However of note patient admits to continued frequent falls as he does not feel "strong or steady on my feet"; over this last week patient has had multiple falls including 2 today, these frequently occur with standing and attempting to move with his walker. Over this last month he has not fallen and hit his head, denies any precursor symptoms or changes in vision during these falls. States that they are all because he is just not strong enough since his back has not been able to be fixed. Acknowledges that this is resulted in him frequently skipping meals as he does not feel comfortable/does not want to bother his family members to come take care of him. He regularly takes his medications, but had recently misplaced his inhalers and was unable to find them over the last week. Earlier today he was feeling more short of breath, but was unable to find his inhalers and continue to feel short of breath on Tylenol arrival at the hospital. At the point of this provider's interview, patient was feeling closer back to his normal self. Acknowledges that it might have been a mistake to not go to [place] however he did not want to be away from his family, but recognizes his strength is not improving quickly and likely will not without some help. Admission Exam Per Admitting Provider Constitutional: WD/WN, vitals as above Eyes: PERRL, conjunctivae normal, anicteric sclerae ENMT: external ear and nose normal, oropharynx normal Respiratory: normal respiratory effort; no respiratory distress and no labored breathing Auscultation: lungs clear to auscultation bilaterally; no crackles, no rales, no rhonchi and no wheezes Cardiovascular: Rate/Rhythm: + irregularly irregular Heart Sounds: no gallop, no murmur and no cardiac rub Gastrointestinal (Abdomen): normal bowel sounds, soft, nontender, no hepa tosplenomegaly Musculoskeletal: no cyanosis or clubbing, extremities motor strength 5/5 Neurologic: PERRL, EOMI, accommodation nl, no face palsy, no dysarthria Psychiatric: Orientation: alert and oriented x 3 Principal Diagnosis Deconditioning Aspiration Pneumonia Discharge Exam General: A&Ox3. NAD. Cooperative. HEENT: Atraumatic, normocephalic. Pulm: CTAB A&P. -wheezes, -rales, -rhonchi. Symmetrical chest rise. No increase work of breathing. No respiratory distress. Cardiac: RRR, -mrg. Radial pulses intact and symmetrical. Abdominal: soft, non-tender, non-distended, BS x 4 Skin: surgical incision on lower back c/d/i Discharge Data Allergies Allergy/AdvReac Type Severity Reaction Status Date / Time Iodinated Contrast Media Allergy Severe Anaphylaxis Verified 07/10/20 20:53 shellfish derived Allergy Severe Anaphylaxis Verified 07/10/20 20:53 Tetanus Vaccines and Toxoid Allergy Unknown Unknown Verified 07/10/20 20:53 Consultations 07/10/20 20:40 ED Decision to Admit Stat 07/11/20 12:40 Consult Orthopedic Surgery Routine 07/23/20 14:34 Consult Palliative Care Routine 08/09/20 11:40 Consult Psychiatry Routine Procedures Performed Operation Date: 07/20/20 12:45 Actual Procedures p L3-S1 Decompression Fusion, L5-S1 Interbody Fushion, Application of Bone Morphogenetic Protein, Application of iFactor Bone Graft, Spinal Cord Monitoring(Not Applicable) - Darius Agarwal, Ordered Studies 07/10/20 19:02 CT abd pelvis wo con Stat CT cervical spine wo con Stat CT head/brain wo con Stat 07/20/20 12:45 FL fluoroscopy <1hr Routine FL lumbar spine 2-3V Routine 07/21/20 04:17 US venous doppler LE RT Routine 07/21/20 09:00 CT head/brain wo con Stat 07/23/20 13:30 FL video swallow Routine 07/29/20 11:15 FL video swallow Routine Hospital Course (1) Aspiration pneumonia: 75yo M with ILD (baseline 2L NC at nighttime), parkinson's, CKD3, IDDM2, paroxysmal afib, AV valve replacement, HLD, lumbar spinal stenosis p/w worsening dyspnea, weakness, falls, dysphagia, malnutrition, and encephalopathy. Extensive hospitalization ~1 month duration due to deconditioning, weakness, aspiration pneumonia following lumbar spine surgery. Aspiration pneumonia, Chronic ILD -finished abx - unasyn discontinued 08/01 -continue chronic prednisone, continue albuterol Swallowing dysfunction -appreciate ongoing speech therapy recommendations -pured diet with honey thick liquids, strict aspiration precautions -patient prefers a more comfort-based approach; has opted to stick with honey- thick pureed as opposed to NG/PEG -tolerating this diet well so far and can take meds either crushed or placed in pudding Malnutrition, Deconditioning - encourage PO intake with honey-thick pureed options as mentioned above - extensive PT/OT during hospitalization, continue after discharge Suicidal Ideation - patient endorses thoughts of killing himself if discharged home without rehab, but does not have plan, no previous attempts, has good support system, no previous psych hx - low risk - Psych consulted - recommends SSRI if symptoms persist, agrees that no acute suicide risk while in the hospital - reports improvement in mood since speaking with me and Psychiatry on 08/09 - continue to monitor Presyncopal event, fall Presyncopal event (08/07) while ambulating on unit, legs became weak, patient was helped into chair and then back into bed without issue, no LOC, VSS. Mechanical fall x1 overnight (08/07-08/08) unwitnessed/unreported by patient until morning rounds, reports fell on left hip and then pulled himself back into bed. -symptoms likely 2/2 deconditioning; continue PT/OT Atrial fibrillation -07/25: episode asymptomatic afib with RVR to the 140s - improved to 90-100s with 2.5mg lopressor - Lovenox used during hospitalization, continue with Eliqius 5mg PO BID on discharge History of AV valve replacement -No concerns. Neurogenic claudication - s/p spine surgery 07/20/20 -cleared from an orthopedic standpoint -continue gabapentin, continue PT/OT -08/05: complained of back pain. Spoke to ortho - xray done - unchanged. added oxycodone 5mg PO q6h Encephalopathy -resolved; was likely 2/2 aspiration pneumonia, hospitalization, tube feeds, -continue to monitor Parkinson's -continue carbidopa/levodopa IDDM2 -holding trulicity -glargine adjusted on 07/30 to 15u bid (from 20u bid) as transition from tube feeds to PO resulted in slightly lower overall intake -CF adjusted to 25, CHO adjusted to 8 per pharmacy suggestion; appreciate ongoing pharmacy recs for glycemic control -SSI -continue to monitor CKD3 -BUN, Cr reassuring and stable; continue to monitor Tinea cruris -continue terbinafine cream Constipation -continue miralax 1-2 packets as needed FENGI: honey-thick pureed diet as above DVT ppx: Eliquis Code status: DNR/DNI Total Time Total Time Spent Total Time Spent (In Minutes): <30 minutes Total Time Includes: Examination of the Patient, Discharge Planning, Medication Reconciliation and Communication With Other Providers Discharge Plan Discharge Items Patient Disposition: Transfer Long Term Fac Reason For Visit: DECONDITIONING Discharge Diagnosis: Aspiration pneumonia, deconditioning Activity: Per Instructions section Non-emergency contact: Primary Care Provider Call non-emergency contact if: you have any medication questions, your symptoms worsen, your pain is worsening and you have a fever Follow-up/Referrals: Josh Gaspar MD [Primary Care Provider] - Diet: Carb Consistent or DM2 and Other - See Diet Comment Addtl Attending Provider Instructions: Weakness, falls, lumbar spinal stenosis, spinal fusion surgery Patient was noted on admission to have falls at home in the setting of worsening back and bilateral leg pain, with a history of multilevel back surgery years prior. Patient underwent L3-4, L4-5, L5-S1 fusion on 07/20, and he tolerated the procedure well. Patient was reevaluated by the orthopedic team on an ongoing basis, and by 07/31 they felt he was recovering well and was ready for discharge. Patients pain was well-controlled during his stay. Aspiration pneumonia, ILD Patient was admitted on 07/10 with shortness of breath and frequent falls in the setting of ILD (2L nighttime oxygen requirement). Patient was noted to have desaturations in the mid-to-high 80s that improved with supplemental oxygen. Patients dyspnea and cough worsened, and patient was found to have aspiration PNA which was treated with unasyn. Patients aspiration PNA improved gradually with antibiotic therapy. Encephalopathy Patient was noted to be difficult to arouse after his procedure on 07/20. This was thought to be due to a combination of factors including his aspiration pneumonia, prolonged hospitalization, parkinsons disease, tube feeds, and other factors. By 07/23, patient was felt to be back at his cognitive baseline. Dysphagia, malnutrition, electrolyte abnormalities Patient was noted on admission to have a longstanding history of dysphagia. After his operation on 07/20, nursing noted coughing with meals, and so speech was consulted to evaluate his swallowing function. He was noted to have aspirations with most meal consistencies. When patient developed encephalopathy the next day, a discussion took place with palliative care and the family, and a temporary NG tube was placed so patient could get nutrition while recovering. When patients mentation improved, swallow study was repeated, which showed aspiration with most consistencies, and the safest food consistency was honey thick purees. Patients NG tube became dislodged during this swallow study, but patient and the team decided to not replace the NG tube as patient decided to continue with honey thick pureed foods rather than considering longer-term NG feeds. Patients mild hypokalemia and hypomagnesemia were repleted PO. Atrial fibrillation on chronic eliquis Patient was noted on admission to have atrial fibrillation chronically managed on eliquis. In anticipation of possible procedure, his eliquis was held and patient was started on lovenox. Can resume Eliqiuis on discharge. Suicidal Ideation On 08/09, patient endorsed thoughts of killing himself if discharged home without rehab, but does not have plan, no previous attempts, has good support system, no previous psych hx - low risk. Psych consulted - recommends SSRI if symptoms persist, agrees that no acute suicide risk while in the hospital. Reports improvement in mood since speaking with me and Psychiatry on 08/09. No medications started in the hospital. Continue to monitor after discharge. Parkinsons disease Patients home dose parkinsons meds were continued during his hospital stay. History of AV valve replacement Patients history of AV valve replacement was noted on admission. Anticoagulation was continued as above. IDDM2 Patients trulicity was held upon admission. Basal/bolus insulin with sliding- scale adjustments were continued throughout his stay. Glycemic consult helped with adjustments as patient was started on NG tube feeds and then again later when these feeds were discontinued. Anemia Patient's history of chronic normocytic anemia was noted on admission. Patient was not symptomatic during his hospital stay and transfusion was not felt to be indicated. This did not become an active issue during this hospitalization. CKD3 Patients BUN and creatinine were relatively stable throughout his admission. Tinea cruris Patient was noted to have an itchy groin rash on admission. This was treated with topical terbanifine cream during his stay. ----- ACTIVITY RECOMMENDATIONS: SELF CARE INSTRUCTIONS AFTER THORACIC/LUMBAR FUSIONS 1. You may walk to your tolerance. It is good exercise for your legs and back. Expect some back and intermittent leg aches and pains. 2. You may perform "counter-top" level activities (make a sandwich, [place] with a project, etc.). 3. No bending or lifting of more than 10 pounds or back twisting of any nature (roll like a log when turning in bed). 4. You may ride in a car for 20-30 minutes at a time. No driving until after your first visit with your doctor. 5. Frequent changes of position and restricting sitting to 30 minutes at a time will help limit the amount of back spasms and stiffness you may experience. 6. You may discontinue the use of ambulatory aids (cane, crutches, etc.) once your strength and confidence allow. 7. You may cleaning crew member the shower and let water strike your incision when you arrive home at least once daily. Do not take a tub bath, sit in a hot tub or go into a swimming pool until after your first recheck in the office. SPECIAL CARE INSTRUCTIONS VERY IMPORTANT TO READ AND REVIEW: A. Your surgical incision has been closed with a cosmetic suture under the skin that will dissolve in about 6 weeks. In 14 days, you can use a pair of clean scissors and cut the suture that is left outside of the skin at the ends of your incision. 1. The small skin tapes can be removed 7 days after surgery if they have not fallen off by that point. 2. You may keep the wound open to air as much as possible to promote healing, because it has been over five days since your surgery. 3. If you think the wound looks like it is becoming infected (redness or worsening drainage) and/or you are experiencing fever, chill or worsening back pain and muscle spasms, contact the office so that we may evaluate you as soon as possible. B. Complications are uncommon, but please contact us if you have any signs or symptoms of: 1. wound infection (fever higher than 102.5 degrees F, redness, separation of wound, drainage, or increasing pain from the incision) 2. blood clots in legs (pain, swelling, redness and warmth in legs) 3. urinary tract infection (fever higher than 102.5 degrees F, burning upon urination or increased frequency of urination) 4. nerve problems (inability to walk on your toes or heels, numbness, loss of bowel or bladder control) 5. any other symptoms that concern you C. Please call the office at if you have any concerns or questions about your operation or recovery. D. No smoking! Smoking drastically decreases the chance of a solid fusion. E. Do not take any anti-inflammatory medications (Indocin, Advil, Motrin, Aspirin, Naprosyn, etc.) as these may inhibit the chance of a solid fusion. Tylenol is okay to take for pain. MANAGING PAIN AFTER SPINAL SURGERY 1. Narcotic medication is intended for short-term use and will be provided for surgical pain. Surgical pain usually lasts for a period of 4-6 weeks. Narcotic medication includes Percocet, Vicodin, Darvocet, Tylenol #3 or Lortab. 2. Longer-term pain is more appropriately treated with non-narcotic medication such as Tylenol ES. 3. Muscle spasm is not appropriately treated with narcotics. Muscle relaxers such as Soma, Flexeril or Skelaxin can be used along with Tylenol ES. 4. Remember that we all live with some "aches and pains". This is not unusual or uncommon after an injury or as we get older. a. Back pain is expected and may include muscle spasms for 4 to 6 weeks afte r surgery. The pain should gradually improve. If the pain worsens for no apparent reason, please contact the office. b. Intermittent leg pain may also be experienced and should not be concerned about unless it worsens for no apparent reason. If so, please contact the office. 5. We will provide appropriate medication within the normal guidelines of their prescribed use. We will also be very cautious and aware of potential abuse and extended duration of patients' medication needs. a. Pain medications are for your comfort and to assist with sleep and rest so that the tissue can heal. They are not provided in order to return to normal activity and should not be used through the day. To do so or worsening pain at night can result from ongoing tissue damage and development of tolerance to the prescribed medicine. 6. Please allow 2-3 days to process refills. Prescriptions will not be mailed but must be picked up at the office. DIET It is important that you limit your diet to honey-thick, pureed foods. These are the foods that are safest for you to swallow, which was determined by our speech therapists after evaluating your swallowing function while in the hospital. Manage your diabetes in the same way you did before - continue to count carbohydrates and use that number to decide how much insulin you will need. FOLLOW UP VISIT: Keep your scheduled follow-up appointment. Any questions, please call the office at . Pending Studies at Discharge: No Stand-Alone Forms: My [facility] Skilled Items Patient informed of condition?: Yes DNR: Yes Discharge Level of Care: Skilled Communicable Disease: No Discharge Prognosis: Stable Lines: None Urinary Catheter: No Medications and DC Order Prescriptions: New Eliquis 5 mg tablet 5 mg PO BID Qty: 90 RF: 3 Continued topiramate 100 mg tablet 100 mg PO BID 30 Days Qty: 60 RF: 5 carbidopa-levodopa 25-100 mg tablet 0.5 tab PO TID Qty: 90 RF: 2 gabapentin 600 mg tablet 600 mg PO BID RF: 0 levetiracetam 1,000 mg tablet 1,000 mg PO BID 90 Days Qty: 180 RF: 1 ipratropium-albuterol 0.5 mg-3 mg(2.5 mg base)/3 mL Solution For Nebulization 3 ml INHALATION QID PRN (Reason: Shortness Of Breath Or Wheezing) RF: 0 azithromycin 250 mg Tablet 250 mg PO .[id number] RF: 0 allopurinol 100 mg Tablet 200 mg PO HS RF: 0 nitroglycerin 0.4 mg Tablet, Sublingual 0.4 mg sublingual DIRECTED PRN (Reason: Chest Pain) RF: 0 albuterol sulfate [Ventolin HFA] 90 mcg/actuation Hfa Aerosol Inhaler 2 puff INHALATION Q4H PRN (Reason: Wheezing) RF: 0 finasteride 5 mg Tablet 5 mg PO QAM RF: 0 insulin aspart U-100 100 unit/mL (3 mL) Insulin Pen 0 unit subcut ACHS RF: 0 Trulicity 1.5 mg/0.5 mL Pen Injector 1.5 mg SUBCUT SA RF: 0 cholecalciferol (vitamin D3) [Vitamin D3] 50 mcg (2,000 unit) Capsule 2,000 unit PO HS RF: 0 [id number] 333-133-5 mg Tablet 1 tab PO HS RF: 0 atorvastatin 40 mg tablet 40 mg PO HS RF: 0 prednisone 5 mg Tablet 10 mg PO DAILY RF: 0 Lantus Solostar U-100 Insulin 100 unit/mL (3 mL) insulin pen 20 unit SUBCUT BID RF: 0 Discharge Orders: Discharge Order (Routine); Ordered 08/12/20 Ordered By: Wagner George Admission Data Admit Date/Time: 07/10/20 21:50 Attending Provider: Jose R Navas Admit Provider: Yordan Govea Primary Care Provider: Josh Gaspar Other Providers: [facility] ; [facility], ; Britton Enriquez ; Darius Agarwal ; Valarie Whitley ; Elvis Bell ; Apoorva Dwyer ; [facility] ; Chelita Espino Other Interventions: Discharge Summary Assessment (RN) Last Done: 08/12/20 10:31 Supervising Physician Co-Signing Physician Notes I personally examined the patient and verified all peña points of history and exam, discussed case, and agree with decision making with Dr George. approved for sn[facility]! Vitals noted, he is awake and alert pleasant no distress. HEENT normocephalic atraumatic mucous membranes moist. Breathing is unlabored no accessory muscle use good effort. Shows no focal neuro deficits. Dysphagia/aspirationcontinue speech and supportive care. He is stable in this regard, but does appear to have ongoing needs for a modified diet and speech therapy that would be very difficult to do at home. should have ongoing speech therapy as outpt at sn[facility] Weakness/deconditioning/neurogenic claudicationcontinue PT/OT. should do well at snf Discharge planning issuesstable for snf, approved to go! Resident Activity Tracking Resident Involvement: Resident Care Provided Care Provided: Adult [facility]
--- NOTE | 2020-08-12 20:06 | Billing Data ---
Date of Service August 12, 2020 Coding Level of Care Code D/C Day Management <30 mins
== END 2020-08-12 15:28 | DRG 453 ==
LOC: ED 18:35 → SUATTDRO 21:50 → 2N 21:50 → 3W 07-20 15:38 → 2S 07-24 15:37 → 3E 07-26 18:52

== ENCOUNTER 2020-09-04 14:30 | Observation (INO) ==
--- NOTE | 2020-09-04 15:11 | Emergency Department Note ---
History of Present Illness General Chief complaint: Stroke/CVA Symptoms Stated complaint: L SIDE WEAKNESS HEADACHE BLURRY LEFT EYE Time Seen by Provider: 09/04/20 14:51 Source: patient History of Present Illness Provider complaint: Left-sided weakness Onset (ago): hour(s) Location: upper extremity, lower extremity and left Pain Consistency: + constant and + other (Significantly improved) Maximum Pain Intensity: 5 Quality: + other (Weakness) Relieved By: + none Exacerbated By: + none Associated symptoms: + headaches and + weakness; no chest pain, no cough, no fever/chills, no nausea/vomiting, no shortness of breath and no syncope This is a 75-year-old male on Coumadin for aortic valve replacement presenting with strokelike symptoms starting at 9 AM this morning. The patient states he woke up at 6 AM and had no symptoms. At 9 AM he was in the kitchen and he suddenly developed left-sided weakness in the arm and leg. He stumbled into a chair and managed not to fall. He did not hit his head. He continues to have left-sided weakness in the arm and leg but it is significantly improved. He does state that he fell 5 days ago and was seen here after head injury. He had negative CT scan of his head at that time but has a persistent headache since that time. He also noted that he had some blurring of his vision bilaterally. He denies any loss of vision or any double vision. He has had no difficulty swallowing, speaking or thinking. He denies any symptoms on his right side. He denies any fever, cough or cold symptoms, chest pain, shortness of breath, abdominal pain or vomiting. He does state that he has some diarrhea. He also has trouble initiating urination at times. He does have a prior history of prostate cancer. Home Medications Medication Instructions Recorded Confirmed Type Trulicity 1.5 mg SUBCUT WK 01/20/20 09/04/20 History albuterol sulfate [Ventolin HFA] 2 puff INHALATION Q4H PRN 01/20/20 09/04/20 History allopurinol 200 mg PO HS 01/20/20 09/04/20 History azithromycin 250 mg PO .MOWEFR@QA 01/20/20 09/04/20 History cholecalciferol (vitamin D3) 2,000 unit PO HS 01/20/20 09/04/20 History [Vitamin D3] finasteride 5 mg PO QAM 01/20/20 09/04/20 History nitroglycerin 0.4 mg SUBLINGUAL DIRECTED PRN 01/20/20 09/04/20 History tfbpnju-[id number]-emgm 1 tab PO HS 02/05/20 09/04/20 History levetiracetam 1,000 mg tablet 1,000 mg PO BID 90 Days #180 tab 04/02/20 09/04/20 Rx topiramate 100 mg tablet 100 mg PO BID 30 Days #60 tab 05/17/20 09/04/20 Rx atorvastatin 40 mg PO HS 05/28/20 09/04/20 History carbidopa 25 mg-levodopa 100 mg 0.5 tab PO TID #90 tab 07/02/20 09/04/20 Rx tablet Lantus Solostar U-100 Insulin 20 unit SUBCUT BID 07/10/20 09/04/20 History apixaban [Eliquis] 5 mg PO BID #90 tab 08/12/20 09/04/20 Rx gabapentin 600 mg PO BID 09/04/20 09/04/20 History insulin aspart U-100 [Novolog 0 unit SUBCUT ACHS 09/04/20 09/04/20 History Flexpen U-100 Insulin] prednisone 1 mg PO DAILY 09/04/20 09/04/20 History warfarin 7.5 mg PO DAILY 09/04/20 09/04/20 History Allergies Allergy/AdvReac Type Severity Reaction Status Date / Time Iodinated Contrast Media Allergy Severe Anaphylaxis Verified 09/04/20 15:16 shellfish derived Allergy Severe Anaphylaxis Verified 09/04/20 15:16 Tetanus Vaccines and Toxoid Allergy Unknown Unknown Verified 09/04/20 15:16 Past Med/Surg History Medical History CAD (coronary artery disease) Dehydration Diabetes HLD (hyperlipidemia) Hypoxia Interstitial lung disease Interstitial lung disease due to connective tissue disease Lung nodule Neurogenic claudication Palliative care encounter Polymyositis Polymyositis Prostate cancer s/p XRT Rheumatoid arthritis Seizure-like activity Stroke-like symptom 12/2019, w/ blurry vision and dysarthria. mild R sided wkness. attending outpatient physical therapy w/ good improvement in strength (5+/5 strength of all 4 extremities as of 05/28/20) Thoracic ascending aortic aneurysm s/p repair Weakness Surgical History H/O hernia repair History of aortic valve replacement mechanical History of cholecystectomy History of fusion of cervical spine History of gastric bypass lap band History of heart artery stent History of lung biopsy 2019 History of partial nephrectomy Family History Other Coronary heart disease Rheumatoid arthritis Stroke Social History Smoking Status: Current every day smoker Second Hand Exposure: No; Hx Alcohol Use: No Hx Substance Use: No Preferred Language: Algerian Communication Ability: Effective Hearing Ability: Hard of Hearing Financial Solutions Advisor Required: No marital status: / Current Living Situation: Alone Current Living Situation Comment: son Feels Safe at Home: Yes Assistive Devices: Walker Review of Systems See HPI for pertinent positives & negatives. and A total of 10 systems reviewed and were otherwise negative Physical Exam Vital Signs Vital Signs - 24 hr 09/04/20 14:34 09/04/20 14:49 09/04/20 15:00 Temperature 36.2 C L Temperature Source Skin Pulse Rate 78 67 77 Pulse Rate [Right Finger] Pulse Rate from SpO2 Sensor 67 78 Respiratory Rate 18 18 18 Respiratory Effort / Characteristics Non-Labored Spontaneous Respiratory Depth Normal Blood Pressure 143/75 H 127/71 121/70 Blood Pressure [Right Arm] Blood Pressure Mean 97 89 87 Blood Pressure Mean [Right Arm] Blood Pressure Position Sitting Blood Pressure Position [Right Arm] Pulse Oximetry 98 97 97 Oxygen Delivery Method Room Air Sepsis Recent Fever Within 48 Hours No Sepsis New/Unexplained Change in Mental Status N/A Sepsis Action Taken by Nursing No Action Required 09/04/20 15:18 09/04/20 15:30 09/04/20 15:45 Temperature Temperature Source Pulse Rate 71 73 75 Pulse Rate [Right Finger] Pulse Rate from SpO2 Sensor 73 73 74 Respiratory Rate 14 17 21 Respiratory Effort / Characteristics Respiratory Depth Blood Pressure 142/67 H 139/78 143/72 H Blood Pressure [Right Arm] Blood Pressure Mean 92 98 95 Blood Pressure Mean [Right Arm] Blood Pressure Position Blood Pressure Position [Right Arm] Pulse Oximetry 94 98 97 Oxygen Delivery Method Sepsis Recent Fever Within 48 Hours Sepsis New/Unexplained Change in Mental Status Sepsis Action Taken by Nursing 09/04/20 16:00 09/04/20 16:15 09/04/20 16:30 Temperature Temperature Source Pulse Rate 69 72 63 Pulse Rate [Right Finger] Pulse Rate from SpO2 Sensor 67 63 Respiratory Rate 18 21 15 Respiratory Effort / Characteristics Respiratory Depth Blood Pressure 127/68 140/75 136/74 Blood Pressure [Right Arm] Blood Pressure Mean 87 96 94 Blood Pressure Mean [Right Arm] Blood Pressure Position Blood Pressure Position [Right Arm] Pulse Oximetry 96 98 Oxygen Delivery Method Sepsis Recent Fever Within 48 Hours Sepsis New/Unexplained Change in Mental Status Sepsis Action Taken by Nursing 09/04/20 17:14 09/04/20 17:15 09/04/20 17:30 Temperature Temperature Source Pulse Rate 95 H 77 71 Pulse Rate [Right Finger] 77 Pulse Rate from SpO2 Sensor 83 78 71 Respiratory Rate 16 27 H 9 L Respiratory Effort / Characteristics Non-Labored Spontaneous Respiratory Depth Normal Blood Pressure 140/110 H 172/87 H 155/97 H Blood Pressure [Right Arm] 140/110 H Blood Pressure Mean 120 115 116 Blood Pressure Mean [Right Arm] 120 Blood Pressure Position Blood Pressure Position [Right Arm] Lying Pulse Oximetry 97 98 96 Oxygen Delivery Method Room Air Sepsis Recent Fever Within 48 Hours Sepsis New/Unexplained Change in Mental Status Sepsis Action Taken by Nursing 09/04/20 17:45 Temperature Temperature Source Pulse Rate 70 Pulse Rate [Right Finger] Pulse Rate from SpO2 Sensor 70 Respiratory Rate 23 Respiratory Effort / Characteristics Respiratory Depth Blood Pressure 134/78 Blood Pressure [Right Arm] Blood Pressure Mean 96 Blood Pressure Mean [Right Arm] Blood Pressure Position Blood Pressure Position [Right Arm] Pulse Oximetry 96 Oxygen Delivery Method Sepsis Recent Fever Within 48 Hours Sepsis New/Unexplained Change in Mental Status Sepsis Action Taken by Nursing Constitutional: Vital signs reviewed. Eyes: Pupils are equal round reactive to light. Conjunctiva are noninjected. ENT: Pharynx is clear without erythema or exudate. Mucous membranes are moist. Neck supple without meningeal signs. Respiratory: Clear to auscultation bilaterally. Breath sounds are equal bilaterally. Cardiovascular: Regular rate and rhythm. No rubs or gallops. GI: Soft, nondistended and nontender. Bowel sounds are present. Musculoskeletal: No peripheral edema. No lower extremity tenderness. Integumentary: No cyanosis. or jaundice. Neurologic: The patient is awake and alert. Cranial nerves II-XII are intact. Motor is 5 out of 5 in the right extremities. Left leg and arm demonstrate 4 out of 5 muscle strength. Sensation is intact to light touch all extremities. Normal speech. Left pronator drift. Limb ataxia in the left lower extremity. Psychiatric: Normal affect. Not anxious appearing. Course Administered Medications Discontinued Medications Acetaminophen (Ofirmev) 65 mls @ 200 mls/hr IV NOW ONE; Protocol Stop: 09/04/20 16:42 Last Infusion: 09/04/20 17:53 Dose: 0 mls/hr Documented by: [id number] Admin: 09/04/20 17:22 Dose: 200 mls/hr Documented by: [id number] Medical Decision Making Differential Diagnosis CVA, TIA, intracranial hemorrhage, intracranial mass, metabolic derangement Medical Records Attestation: I reviewed the patient's medical records. I did perform a limited focused review of portions of the patient's old chart on the electronic medical record. The patient was seen here 4 days ago after a fall. He had negative head CT at that time. He was admitted in July for deconditioning and aspiration pneumonia. Home Medications Current Medication List: was personally reviewed by me Laboratory Data Attestation: I reviewed the patient's lab results. Result diagrams: 09/04/20 14:53 09/04/20 14:53 Lab Results 09/04/20 09/04/20 09/04/20 Range/Units 14:53 14:53 14:53 WBC 5.60 (4.8-10.8) K/uL RBC 4.19 L (4.7-6.1) M/uL Hgb 11.6 L (14.0-18.0) g/dL Hct 35.9 L (42-52) % MCV 85.7 (80-100) fL MCH 27.7 (25-34) pg MCHC 32.3 (32-36) g/dL RDW Std Deviation 50.7 H (36.4-46.3) fL RDW Coeff of Lianne 16.0 H (11.5-14.5) % Plt Count 183 (130-400) K/uL MPV 9.7 (7.4-10.4) fL Immature Gran % (Auto) 0.4 % Neut % (Auto) 81.5 % Lymph % (Auto) 13.8 % Crosby % (Auto) 3.4 % Eos % (Auto) 0.7 % Baso % (Auto) 0.2 % Neut # (Auto) 4.57 (1.4-6.5) K/uL Lymph # (Auto) 0.77 L (1.2-3.4) K/uL [place]by # (Auto) 0.19 (0.11-0.59) K/uL Eos # (Auto) 0.04 (0-0.5) K/uL Baso # (Auto) 0.01 (0-0.2) K/uL Immature Gran # (Auto) 0.02 (0.00-0.02) K/uL Absolute Nucleated RBC 0.00 (0-0) K/uL Nucleated RBC % (auto) 0.0 % Polychromasia 1+ Tear Drop Cells 1+ PT 29.4 H (9.0-12.0) Seconds POC INR (0.9-1.1) INR 3.2 H (0.9-1.1) APTT 38.2 H (21.0-31.0) Seconds PTT Ratio 1.5 Sodium 140 (136-145) mmol/L Potassium 4.2 (3.5-5.1) mmol/L Chloride 111 H (98-107) mmol/L Carbon Dioxide 23 (21-32) mmol/L Anion Gap 6.0 (3-11) BUN 26 H (7-18) mg/dl Creatinine 1.21 (0.6-1.4) mg/dl Est Cr Clr Drug Dosing 65.6 ml/min Est GFR ( Amer) 67.5 Est GFR (Non-Af Amer) 58.2 BUN/Creatinine Ratio 21.2 H (10-20) Glucose 205 H (70-99) mg/dl POC Glucose (70-99) mg/dl Calcium 9.1 (8.5-10.1) mg/dl Magnesium 2.1 (1.8-2.4) mg/dl Total Bilirubin 0.4 (0.2-1) mg/dl AST 33 (15-37) U/L ALT 51 (12-78) U/L Alkaline Phosphatase 149 H (45-117) U/L Troponin I < 0.015 (0-0.045) ng/ml Total Protein 6.6 (6.4-8.2) gm/dl Albumin 3.4 (3.4-5.0) gm/dl Globulin 3.2 (2.5-4.0) gm/dl Albumin/Globulin Ratio 1.1 (0.9-2) COVID-19 Eval Order SARS-CoV-2 (PCR) (Negative) Influenza Type A (PCR) (Neg) Influenza Type B (PCR) (Neg) RSV (RT-PCR) (Neg) Blood Type Antibody Screen 09/04/20 09/04/20 09/04/20 Range/Units 15:20 15:21 15:26 WBC (4.8-10.8) K/uL RBC (4.7-6.1) M/uL Hgb (14.0-18.0) g/dL Hct (42-52) % MCV (80-100) fL MCH (25-34) pg MCHC (32-36) g/dL RDW Std Deviation (36.4-46.3) fL RDW Coeff of Lianne (11.5-14.5) % Plt Count (130-400) K/uL MPV (7.4-10.4) fL Immature Gran % (Auto) % Neut % (Auto) % Lymph % (Auto) % Crosby % (Auto) % Eos % (Auto) % Baso % (Auto) % Neut # (Auto) (1.4-6.5) K/uL Lymph # (Auto) (1.2-3.4) K/uL Crosby # (Auto) (0.11-0.59) K/uL Eos # (Auto) (0-0.5) K/uL Baso # (Auto) (0-0.2) K/uL Immature Gran # (Auto) (0.00-0.02) K/uL Absolute Nucleated RBC (0-0) K/uL Nucleated RBC % (auto) % Polychromasia Tear Drop Cells PT (9.0-12.0) Seconds POC INR 3.7 H (0.9-1.1) INR (0.9-1.1) APTT (21.0-31.0) Seconds PTT Ratio Sodium (136-145) mmol/L Potassium (3.5-5.1) mmol/L Chloride (98-107) mmol/L Carbon Dioxide (21-32) mmol/L Anion Gap (3-11) BUN (7-18) mg/dl Creatinine (0.6-1.4) mg/dl Est Cr Clr Drug Dosing ml/min Est GFR ( Amer) Est GFR (Non-Af Amer) BUN/Creatinine Ratio (10-20) Glucose (70-99) mg/dl POC Glucose 221 H (70-99) mg/dl Calcium (8.5-10.1) mg/dl Magnesium (1.8-2.4) mg/dl Total Bilirubin (0.2-1) mg/dl AST (15-37) U/L ALT (12-78) U/L Alkaline Phosphatase (45-117) U/L Troponin I (0-0.045) ng/ml Total Protein (6.4-8.2) gm/dl Albumin (3.4-5.0) gm/dl Globulin (2.5-4.0) gm/dl Albumin/Globulin Ratio (0.9-2) COVID-19 Eval Order SARS-CoV-2 (PCR) (Negative) Influenza Type A (PCR) (Neg) Influenza Type B (PCR) (Neg) RSV (RT-PCR) (Neg) Blood Type O Positive Antibody Screen NEGATIVE 09/04/20 09/04/20 Range/Units 16:21 16:21 WBC (4.8-10.8) K/uL RBC (4.7-6.1) M/uL Hgb (14.0-18.0) g/dL Hct (42-52) % MCV (80-100) fL MCH (25-34) pg MCHC (32-36) g/dL RDW Std Deviation (36.4-46.3) fL RDW Coeff of Lianne (11.5-14.5) % Plt Count (130-400) K/uL MPV (7.4-10.4) fL Immature Gran % (Auto) % Neut % (Auto) % Lymph % (Auto) % Crosby % (Auto) % Eos % (Auto) % Baso % (Auto) % Neut # (Auto) (1.4-6.5) K/uL Lymph # (Auto) (1.2-3.4) K/uL Cros[place] # (Auto) (0.11-0.59) K/uL Eos # (Auto) (0-0.5) K/uL Baso # (Auto) (0-0.2) K/uL Immature Gran # (Auto) (0.00-0.02) K/uL Absolute Nucleated RBC (0-0) K/uL Nucleated RBC % (auto) % Polychromasia Tear Drop Cells PT (9.0-12.0) Seconds POC INR (0.9-1.1) INR (0.9-1.1) APTT (21.0-31.0) Seconds PTT Ratio Sodium (136-145) mmol/L Potassium (3.5-5.1) mmol/L Chloride (98-107) mmol/L Carbon Dioxide (21-32) mmol/L Anion Gap (3-11) BUN (7-18) mg/dl Creatinine (0.6-1.4) mg/dl Est Cr Clr Drug Dosing ml/min Est GFR ( Amer) Est GFR (Non-Af Amer) BUN/Creatinine Ratio (10-20) Glucose (70-99) mg/dl POC Glucose (70-99) mg/dl Calcium (8.5-10.1) mg/dl Magnesium (1.8-2.4) mg/dl Total Bilirubin (0.2-1) mg/dl AST (15-37) U/L ALT (12-78) U/L Alkaline Phosphatase (45-117) U/L Troponin I (0-0.045) ng/ml Total Protein (6.4-8.2) gm/dl Albumin (3.4-5.0) gm/dl Globulin (2.5-4.0) gm/dl Albumin/Globulin Ratio (0.9-2) COVID-19 Eval Order [facility]FluRsv at [facility] SARS-CoV-2 (PCR) NEGATIVE (Negative) Influenza Type A (PCR) Negative (Neg) Influenza Type B (PCR) Negative (Neg) RSV (RT-PCR) Negative (Neg) Blood Type Antibody Screen Imaging Data Radiologist's Impression: Head CT 09/04/20 15:02 CT OF THE HEAD WITHOUT CONTRAST CLINICAL HISTORY: left weakness eval for bleed/stroke COMPARISON STUDY: Head CT August 31, 2020. MRI of the brain January 21, 2020. CT DOSE: 614.27 mGy.cm TECHNIQUE: Helical axial images of the head were obtained without IV contrast. Automated exposure control was utilized for the study. A dose lowering technique was utilized adhering to the principles of ALARA. FINDINGS: No acute intracranial hemorrhage, midline shift or mass effect is present. The ventricular system is unremarkable. The basal cisterns are patent. No extra-axial collections are present. There are no findings to suggest acute dural sinus thrombosis or acute territorial infarct. No significant calvarial abnormalities are present. Bilateral mastoid fluid is similar to prior exam. IMPRESSION: No acute intracranial findings. ACT 112: Negative or not required by law. Electronically signed by: John Paul Drummond M.D. 09/04/2020 3:15 PM Brain MRI 09/04/20 16:23 MRI OF THE BRAIN WITHOUT CONTRAST CLINICAL HISTORY: Left leg weakness. Evaluate for stroke. COMPARISON STUDY: MRI of the brain January 21, 2020. Head CT performed earlier today. TECHNIQUE: Utilizing a 1.5 Eboni magnet and dedicated coil, multiplanar, multiecho imaging of the brain was performed without IV contrast. FINDINGS: There are no foci of restricted diffusion to suggest acute infarct. No acute intracranial hemorrhage, midline shift or mass effect is present. Ventricular system is unremarkable. Basal cisterns are patent. There are no extra-axial collections. Periventricular white matter T2 hyperintense foci are similar to MRI January 21, 2020 and suggest small vessel disease. 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 This is unchanged. There is old smaller lacunar infarct within the right cerebellar hemisphere as well. This is also unchanged. No intracranial masses are identified on this unenhanced study. The appearance of the brain is unchanged. A few punctate hypointense foci within the brain are noted on the gradient echo sequence. Bi lateral mastoid fluid is similar to previous MRI. IMPRESSION: 1. No acute intracranial findings. No evidence for acute infarct. 2. No change in white matter T2 hyperintense foci suggestive of small vessel disease. 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 3. A few punctate foci of susceptibility artifact on the gradient echo sequence which suggest trace old blood products/hemosiderin deposition. 4. No change in bilateral mastoid effusions. ACT 112: Negative or not required by law. Electronically signed by: John Paul Drummond M.D. 09/04/2020 5:16 PM ECG Data Attestation: I personally reviewed and interpreted this ECG as follows: Indication: + other (Stroke symptoms) Rate (beats per minute): 70 Rhythm: + normal sinus ECG [place]: + Normal ECG ST segments: no ST elevation ECG Findings: no PVCs MDM Narrative I did evaluate the patient as noted above. The patient is presenting with sudden onset of left arm and leg pain with some blurry vision at 9 AM this morning. He woke up well at 6 AM. He is outside the IV TPA window. He is also on Coumadin and POC INR is 3.7. He does have weakness to the left arm and leg with limb atax ia of the left leg and pronator drift on the left side. I did call a stroke alert. IV access was established. I did place an order for continuous cardiac monitoring. The monitor showed normal sinus rhythm at a rate of 70 bpm. I did order and personally review the patient's 12-lead EKG as described above. He has no evidence of acute ischemia. I did order and personally reviewed the images of the patient's chest x-ray as described above. I did order a urine analysis. I did order and review the patient's blood work as noted in the electronic medical record. His white count is not elevated. He has a hemoglobin 11.6. Platelets are within normal limits. Electrolytes are unremarkable other than a chloride of 111. INR supratherapeutic at 3.2. Glucose is elevated at 205. Troponin is negative. I did order a CT of the head. I did review the images myself as well as the radiology report as described above. There is no evidence of bleed or infarction or acute abnormality. The patient states he has an anaphylactic allergic reaction to IVP dye. This occurred in the 70s. He has since had an MRI with contrast but had to be premedicated. I did discuss this with Dr. Bhanu sterling who recommended obtaining an MRI of the brain without contrast. I did order an MRI of the brain. I did recommend hospitalization and discussed the case with the hospitalist and family service caseworker. Impression & Plan Acute left-sided muscle weakness, Anemia, Headache, Supratherapeutic INR, Acute hyperglycemia Discharge Plan Visit Data Chief Complaint: Stroke/CVA Symptoms Stated Complaint: L SIDE WEAKNESS HEADACHE BLURRY LEFT EYE ED Provider: Yo Forbes Discharge Problem: Acute left-sided muscle weakness, Anemia, Headache, Supratherapeutic INR, Acute hyperglycemia Patient Disposition: Admitted As Inpatient Discharge Instructions Interventions: ED Discharge Assessment Last Done: 09/04/20 17:47 Forms Stand Alone Forms: My [employer] Prescriptions Prescriptions: No Action topiramate 100 mg tablet 100 mg PO BID 30 Days Qty: 60 RF: 5 carbidopa-levodopa 25-100 mg tablet 0.5 tab PO TID Qty: 90 RF: 2 levetiracetam 1,000 mg tablet 1,000 mg PO BID 90 Days Qty: 180 RF: 1 azithromycin 250 mg Tablet 250 mg PO .[id number]@QAM RF: 0 allopurinol 100 mg Tablet 200 mg PO HS RF: 0 nitroglycerin 0.4 mg Tablet, Sublingual 0.4 mg sublingual DIRECTED PRN (Reason: Chest Pain) RF: 0 albuterol sulfate [Ventolin HFA] 90 mcg/actuation Hfa Aerosol Inhaler 2 puff INHALATION Q4H PRN (Reason: Wheezing) RF: 0 finasteride 5 mg Tablet 5 mg PO QAM RF: 0 Trulicity 1.5 mg/0.5 mL Pen Injector 1.5 mg SUBCUT WK RF: 0 cholecalciferol (vitamin D3) [Vitamin D3] 50 mcg (2,000 unit) Capsule 2,000 unit PO HS RF: 0 [id number] 333-133-5 mg Tablet 1 tab PO HS RF: 0 atorvastatin 40 mg tablet 40 mg PO HS RF: 0 Lantus Solostar U-100 Insulin 100 unit/mL (3 mL) insulin pen 20 unit SUBCUT BID RF: 0 Eliquis 5 mg tablet 5 mg PO BID Qty: 90 RF: 3 warfarin 7.5 mg tablet 7.5 mg PO DAILY RF: 0 prednisone 1 mg tablet 1 mg PO DAILY RF: 0 insulin aspart U-100 [Novolog Flexpen U-100 Insulin] 100 unit/mL (3 mL) insulin pen 0 unit SUBCUT ACHS RF: 0 gabapentin 300 mg capsule 600 mg PO BID RF: 0 Referrals Referrals: Josh Gaspar MD [Primary Care Provider] -
--- NOTE | 2020-09-04 15:16 | CT Scan Report ---
CT OF THE HEAD WITHOUT CONTRAST CLINICAL HISTORY: left weakness eval for bleed/stroke COMPARISON STUDY: Head CT August 31, 2020. MRI of the brain January 21, 2020. CT DOSE: 614.27 mGy.cm TECHNIQUE: Helical axial images of the head were obtained without IV contrast. Automated exposure con trol was utilized for the study. A dose lowering technique was utilized adhering to the principles o f ALARA. FINDINGS: No acute intracranial hemorrhage, midline shift or mass effect is present. The ventricular system is unremarkable. The basal cisterns are patent. No extra-axial collections are present. There are no findings to suggest acute dural sinus thrombosis or acute territorial infarct. No significant calvarial abnormalities are present. Bilateral mastoid fluid is similar to prior exam. IMPRESSION: No acute intracranial findings. ACT 112: Negative or not required by law. Electronically signed by: John Paul Drummond M.D. 09/04/2020 3:15 PM
[2020-09-04 15:37] LABS: Hematocrit (blood only) 35.9 % (42-52); Hemoglobin 11.6 g/dL (14.0-18.0); Mean Corpuscular Hemoglobin 27.7 pg (25-34); Mean Corpuscular Hgb Conc 32.3 g/dL (32-36); Mean Corpuscular Volume 85.7 fL (80-100); Mean Platelet Volume 9.7 fL (7.4-10.4); Platelet Count 183 K/uL (130-400); RDW Standard Deviation 50.7 fL (36.4-46.3); Red Blood Count 4.19 M/uL (4.7-6.1)
[2020-09-04 15:39] LABS: INR 3.2 (0.9-1.1); Partial Thromboplastin Ratio 1.5; Partial Thromboplastin Time 38.2 Seconds (21.0-31.0); Prothrombin Time 29.4 Seconds (9.0-12.0)
[2020-09-04 15:48] LABS: Albumin Level 3.4 gm/dl (3.4-5.0); BUN Creatinine Ratio 21.2 (10-20); Blood Urea Nitrogen 26 mg/dl (7-18); Calcium 9.1 mg/dl (8.5-10.1); Carbon Dioxide 23 mmol/L (21-32); Chloride 111 mmol/L (98-107); Creatinine Clr Calc Pharmacy 65.6 ml/min; Est GFR (African American) 67.5; Est GFR (Non-African American) 58.2; Glucose 205 mg/dl (70-99); Magnesium 2.1 mg/dl (1.8-2.4); Potassium 4.2 mmol/L (3.5-5.1); Sodium 140 mmol/L (136-145)
[2020-09-04 15:53] LABS: Alanine Aminotransferase 51 U/L (12-78); Albumin Globulin Ratio 1.1 (0.9-2); Alkaline Phosphatase 149 U/L (45-117); Aspartate Aminotransferase 33 U/L (15-37); Bilirubin,Total 0.4 mg/dl (0.2-1); Globulin 3.2 gm/dl (2.5-4.0); Total Protein 6.6 gm/dl (6.4-8.2); Troponin I < 0.015 ng/ml (0-0.045)
[2020-09-04 16:04] LABS: Basophils # (auto) 0.01 K/uL (0-0.2); Basophils % (auto) 0.2 %; Eosinophils # (auto) 0.04 K/uL (0-0.5); Eosinophils % (auto) 0.7 %; Immature Granulocytes # (auto) 0.02 K/uL (0.00-0.02); Immature Granulocytes % (auto) 0.4 %; Lymphocytes # (auto) 0.77 K/uL (1.2-3.4); Lymphocytes % (auto) 13.8 %; Monocytes # (auto) 0.19 K/uL (0.11-0.59); Monocytes % (auto) 3.4 %; Neutrophils # (auto) 4.57 K/uL (1.4-6.5); Neutrophils % (auto) 81.5 %; Polychromasia 1+; Tear Drop Cells 1+
[2020-09-04] MEDS ORDERED: ACETAMINOPHEN 65 ML IV ONE (16:23)
[2020-09-04 17:05] LABS: Influenza A virus by PCR Negative (Neg); Influenza B virus by PCR Negative (Neg); RSV by PCR Negative (Neg); SARS CoV2 RNA(COVID-19) InHosp NEGATIVE (Negative)
--- NOTE | 2020-09-04 17:18 | Magnetic Resonance Report ---
MRI OF THE BRAIN WITHOUT CONTRAST CLINICAL HISTORY: Left leg weakness. Evaluate for stroke. COMPARISON STUDY: MRI of the brain January 21, 2020. Head CT performed earlier today. TECHNIQUE: Utilizing a 1.5 Eboni magnet and dedicated coil, multiplanar, multiecho imaging of the bra in was performed without IV contrast. FINDINGS: There are no foci of restricted diffusion to suggest acute infarct. No acute intracranial h emorrhage, midline shift or mass effect is present. Ventricular system is unremarkable. Basal cistern s are patent. There are no extra-axial collections. Periventricular white matter T2 hyperintense foci are similar to MRI January 21, 2020 and suggest small vessel disease. 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 This is unchanged. There is old smaller lacunar infarct with in the right cerebellar hemisphere as well. This is also unchanged. No intracranial masses are identi fied on this unenhanced study. The appearance of the brain is unchanged. A few punctate hypointense f oci within the brain are noted on the gradient echo sequence. Bilateral mastoid fluid is similar to p revious MRI. IMPRESSION: 1. No acute intracranial findings. No evidence for acute infarct. 2. No change in white matter T2 hyperintense foci suggestive of small vessel disease. A few old infar cts within the right cerebellar hemisphere, unchanged. 3. A few punctate foci of susceptibility artifact on the gradient echo sequence which suggest trace o ld blood products/hemosiderin deposition. 4. No change in bilateral mastoid effusions. ACT 112: Negative or not required by law. Electronically signed by: John Paul Drummond M.D. 09/04/2020 5:16 PM
--- NOTE | 2020-09-04 17:29 | History & Physical Report ---
Date of Service September 04, 2020 Assessment & Plan (1) CVA (cerebral vascular accident): Rule out CVA vs. TIA not a tPA candidate secondary to time as well as on Coumadin - NIHSS currently- 1 to 0 - CTA head negative - MRI - 1. No acute intracranial findings. No evidence for acute infarct. No change in white matter T2 hyperintense foci suggestive of small vessel disease. 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 A few punctate foci of susceptibility artifact on the gradient echo sequence which suggest trace old blood products/hemosiderin deposition. - Continue Coumadin - Continue Atorvastatin 40 - Speech eval - ECHO - Neurological evaluation - PT/OT (2) Fall: Fall with left sided weakness - No change in bilateral mastoid effusions. - Will add on Doribax for ear wax- evaluate for inner ear pathology with his falls. - PT/OT - No acute injury- continue with neurological examinations q2-q4 hours for DASH Any change in neurological status with falls and Coumadin- get stat CT scan of the head. (3) Weakness: Left sided weakness appears resolved, when patient coached to push and use his left side there was no difference in strength noted. (4) Aortic valve replaced: No acute needs, ECHO last admission poorly visualized, but without any increase in velocity - ECHO with CVA workup. - Continue with his Coumadin 7.5 mg daily - INR in the morning - Therapeutic today at 3.2 (5) Diabetes: Continue Lantus 20mg night - Sliding Scale Aspart - CF 20, ratio 1:15 (6) Diabetic peripheral neuropathy: Continue Gabapentin (7) Seizure-like activity: Patient reports history of seizures- he has seen a headache specialist and is to follow up with them he reports in October. - His last appointment was cancelled due to his most recent admission and rehab - Continue Keppra, Continue Topiramate, Continue Gabapentin - Seizure precautions (8) HLD (hyperlipidemia): As above, continue Atorvastatin 40 (9) Interstitial lung disease: Patient follows with rheumatology as well as with Pulmonary - He was to start Rituxan- Patient reports he had 1 dose and could not get his second secondary to his levels - Placed back on prednisone this time at 7mg per day. - No acute needs at this time - If he will be here through the weekend- Restart Azithromycin for ILD - If he remains in house, he reports he is to have a CT scan of his chest performed for evaluation and pulmonary follow up. (10) Low back pain: Improved per patient - Continue with PT/OT (11) Migraine: As above- no acute needs (12) Parkinsonism: Started trial Sinemet in June - He follows with Neurology Dr Sheikh - Continue Sinemet / History of Present Illness Primary Care Provider: Josh Gaspar MD 75 YOM with complicated medical history to include Aortic root graft, Mechanical AVR in 2003 (Coumadin), Migraines, seizure history, neuropathy, ILD (on prednisone and Rituxan), HLD, DMII on insulin, Parkinson disease, lumbar fusion, and BPH. Patient was in house for 3 weeks following his L3-S1, and fusion in June for lumbar spinal stenosis with neurogenic claudication. Patient comes in to the emergency room today for concerns of left sided weakness, left sided blurred vision, with left sided pronator drift per ER report. The patient states that this occurred at 0900 this morning as he was standing in his kitchen and his left side just gave out and he could not use it to get himself up. This resolved and he was able to get up and into his chair. He ate lunch and around 1330, his left sided weakness started again, so he called his son. Of note the patient had a fall on Sunday after tripping over a rug, his INR was noted to be elevated to 5.2, so he held a day of Coumadin and returned to using his 7.5 mg daily. Today his INR is 3.2 therapeutic. In the ER the patient was noted above to have 4/5 strength in his left upper and left lower extremities and left pronator drift, with left ataxia. He had a CT scan of the head and secondary to his Allergy to contrast/iodine a CTA was not performed. He did have an MRI of the brain with out contrast as well and that is pending. Upon my examination returning from the MRI, the patient was up standing at the bedside using his urinal, there was no balance or gait abnormalities when getting back into the bed noted. NIHS- 1 for dysarthria, but this may be due to his poor dentition and hearing. During the patient's previous admission, he was seen by palliative care. He was suffering from dysphagia, he was evaluated and placed on honey thick diet with alternations between food and liquid. he went to rehab and reports he graduated to a soft minced diet and no liquid restrictions. Bedside swallow screen and speech evaluation placed. Patient will be admitted to continue stroke work up. MRI done, ECHO, neurology consult placed, monitor on telemetry for 24 hours for dysrhythmia. Allergies Allergy/AdvReac Type Severity Reaction Status Date / Time Iodinated Contrast Media Allergy Severe Anaphylaxis Verified 09/04/20 15:16 shellfish derived Allergy Severe Anaphylaxis Verified 09/04/20 15:16 Tetanus Vaccines and Toxoid Allergy Unknown Unknown Verified 09/04/20 15:16 Home Medications Medication Instructions Recorded Confirmed Type Trulicity 1.5 mg SUBCUT WK 01/20/20 09/04/20 History albuterol sulfate [Ventolin HFA] 2 puff INHALATION Q4H PRN 01/20/20 09/04/20 History allopurinol 200 mg PO HS 01/20/20 09/04/20 History azithromycin 250 mg PO .MOWEFR@QA 01/20/20 09/04/20 History cholecalciferol (vitamin D3) 2,000 unit PO HS 01/20/20 09/04/20 History [Vitamin D3] finasteride 5 mg PO QAM 01/20/20 09/04/20 History nitroglycerin 0.4 mg SUBLINGUAL DIRECTED PRN 01/20/20 09/04/20 History [id number]-[id number]-midm 1 tab PO HS 02/05/20 09/04/20 History levetiracetam 1,000 mg tablet 1,000 mg PO BID 90 Days #180 tab 04/02/20 09/04/20 Rx topiramate 100 mg tablet 100 mg PO BID 30 Days #60 tab 05/17/20 09/04/20 Rx atorvastatin 40 mg PO HS 05/28/20 09/04/20 History carbidopa 25 mg-levodopa 100 mg 0.5 tab PO TID #90 tab 07/02/20 09/04/20 Rx tablet Lantus Solostar U-100 Insulin 20 unit SUBCUT BID 07/10/20 09/04/20 History apixaban [Eliquis] 5 mg PO BID #90 tab 08/12/20 09/04/20 Rx gabapentin 600 mg PO BID 09/04/20 09/04/20 History insulin aspart U-100 [Novolog 0 unit SUBCUT ACHS 09/04/20 09/04/20 History Flexpen U-100 Insulin] prednisone 1 mg PO DAILY 09/04/20 09/04/20 History warfarin 7.5 mg PO DAILY 09/04/20 09/04/20 History Past Med/Surg History Medical History CAD (coronary artery disease) Dehydration Diabetes HLD (hyperlipidemia) Hypoxia Interstitial lung disease Interstitial lung disease due to connective tissue disease Lung nodule Neurogenic claudication Palliative care encounter Polymyositis Polymyositis Prostate cancer s/p XRT Rheumatoid arthritis Seizure-like activity Stroke-like symptom 12/2019, w/ blurry vision and dysarthria. mild R sided wkness. attending outpatient physical therapy w/ good improvement in strength (5+/5 strength of all 4 extremities as of 05/28/20) Thoracic ascending aortic aneurysm s/p repair Weakness Surgical History H/O hernia repair History of aortic valve replacement mechanical History of cholecystectomy History of fusion of cervical spine History of gastric bypass lap band History of heart artery stent History of lung biopsy 2019 History of partial nephrectomy Family History Other Coronary heart disease Rheumatoid arthritis Stroke Social History Smoking Status: Current every day smoker Second Hand Exposure: No; Hx Alcohol Use: No Hx Substance Use: No Preferred Language: Vietnamese Communication Ability: Effective Hearing Ability: Hard of Hearing Tuck Pointer Required: No marital status: / Current Living Situation: Alone Current Living Situation Comment: son Feels Safe at Home: Yes Assistive Devices: Walker Review of Systems Review of Systems: REVIEW OF SYSTEMS: Constitutional: No fever, sweats or chills Eyes: No diplopia, no worsening or blurred vision ENT: (+) difficulty hearing has one broken hearing aid, can not eat large pieces of meat, minced diet. Respiratory: (+) dyspnea on exertion with his ILD, No cough, sputum, dyspnea at rest Cardiovascular: No chest pain, tightness or palpitations Abdomen: No pain, nausea, vomiting, diarrhea or constipation Musculoskeletal: (+) back pain, (-) joint pain, calf pain Neurologic: (+) left sided weakness- now resolved, uses walker at home (-) numbness/tingling, or balance problems Psychiatric: No anxiety or depression Skin: No rash or itch Physical Exam Physical Exam: PHYSICAL EXAM: General: awake, alert, no apparent distress Head: Normocephalic, atraumatic ENT: PERRL, EOMI, no pharyngeal exudate, mucous membranes moist, ears with waxy buildup rt > lt, unable to view TM clearly Neuro: AAO x 3, speech with mild slurring of words and appropriate, strength intact bilaterally 5/5 (had to be coached to push with his left side- when he did it was equal to right, sensation intact and equal all extremities and dermatomes, no pronator drift, tongue midline, no facial droop. No ataxia, no difficulty reading. NIHSS 0-1 Chest: equal rise and fall of the chest, no accessory muscle use, no heaves or thrills, Clear to auscultation, on room air, Cardiac: Regular rate and rhythm, telemetry reviewed, S1S2 skin warm dry, cap refill <3 seconds, peripheral pulses +2 no JVD, no murmur, (+) 2 lower extremity edema bilaterally. GI: NABS x 4 quadrants, soft, nontender to palpation, no rebound, guarding or tenderness : Spontaneously voiding, no pain, no CVA tenderness, Extremities: Normal inspection, no peripheral edema or erythema, calfs nontender to palpation Psych: Normal mood and affect Skin: no rash or erythema, well healed scar to lumbar sacral area. Results & Data Results & Data ([facility]) Vital Signs (Past 12 Hours) Vital Signs Temp Pulse Pulse Resp BP BP Pulse Ox 09/04/20 17:14 77 18 140/110 H 99 09/04/20 16:00 69 18 127/68 96 09/04/20 15:45 75 21 143/72 H 97 09/04/20 15:30 73 17 139/78 98 09/04/20 15:18 71 14 142/67 H 94 09/04/20 15:00 77 18 121/70 97 09/04/20 14:49 67 18 127/71 97 09/04/20 14:34 36.2 C L 78 18 143/75 H 98 Laboratory Results Abnormal lab results 09/04/20 09/04/20 09/04/20 Range/Units 14:53 14:53 14:53 RBC 4.19 L (4.7-6.1) M/uL Hgb 11.6 L (14.0-18.0) g/dL Hct 35.9 L (42-52) % RDW Std Deviation 50.7 H (36.4-46.3) fL RDW Coeff of Lianne 16.0 H (11.5-14.5) % Lymph # (Auto) 0.77 L (1.2-3.4) K/uL PT 29.4 H (9.0-12.0) Seconds POC INR (0.9-1.1) INR 3.2 H (0.9-1.1) APTT 38.2 H (21.0-31.0) Seconds Chloride 111 H (98-107) mmol/L BUN 26 H (7-18) mg/dl BUN/Creatinine Ratio 21.2 H (10-20) Glucose 205 H (70-99) mg/dl POC Glucose (70-99) mg/dl Alkaline Phosphatase 149 H (45-117) U/L 09/04/20 09/04/20 Range/Units 15:20 15:21 RBC (4.7-6.1) M/uL Hgb (14.0-18.0) g/dL Hct (42-52) % RDW Std Deviation (36.4-46.3) fL RDW Coeff of Lianne (11.5-14.5) % Lymph # (Auto) (1.2-3.4) K/uL PT (9.0-12.0) Seconds POC INR 3.7 H (0.9-1.1) INR (0.9-1.1) APTT (21.0-31.0) Seconds Chloride (98-107) mmol/L BUN (7-18) mg/dl BUN/Creatinine Ratio (10-20) Glucose (70-99) mg/dl POC Glucose 221 H (70-99) mg/dl Alkaline Phosphatase (45-117) U/L Diagnostic Findings Head CT 09/04/20 15:02 CT OF THE HEAD WITHOUT CONTRAST CLINICAL HISTORY: left weakness eval for bleed/stroke COMPARISON STUDY: Head CT August 31, 2020. MRI of the brain January 21, 2020. CT DOSE: 614.27 mGy.cm TECHNIQUE: Helical axial images of the head were obtained without IV contrast. Automated exposure control was utilized for the study. A dose lowering technique was utilized adhering to the principles of ALARA. FINDINGS: No acute intracranial hemorrhage, midline shift or mass effect is present. The ventricular system is unremarkable. The basal cisterns are patent. No extra-axial collections are present. There are no findings to suggest acute dural sinus thrombosis or acute territorial infarct. No significant calvarial abnormalities are present. Bilateral mastoid fluid is similar to prior exam. IMPRESSION: No acute intracranial findings. ACT 112: Negative or not required by law. Electronically signed by: John Paul Drummond M.D. 09/04/2020 3:15 PM Brain MRI 09/04/20 16:23 MRI OF THE BRAIN WITHOUT CONTRAST CLINICAL HISTORY: Left leg weakness. Evaluate for stroke. COMPARISON STUDY: MRI of the brain January 21, 2020. Head CT performed earlier today. TECHNIQUE: Utilizing a 1.5 Eboni magnet and dedicated coil, multiplanar, m ultiecho imaging of the brain was performed without IV contrast. FINDINGS: There are no foci of restricted diffusion to suggest acute infarct. No acute intracranial hemorrhage, midline shift or mass effect is present. Ventricular system is unremarkable. Basal cisterns are patent. There are no extra-axial collections. Periventricular white matter T2 hyperintense foci are similar to MRI January 21, 2020 and suggest small vessel disease. 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 This is unchanged. There is old smaller lacunar infarct within the right cerebellar hemisphere as well. This is also unchanged. No intracranial masses are identified on this unenhanced study. The appearance of the brain is unchanged. A few punctate hypointense foci within the brain are noted on the gradient echo sequence. Bilateral mastoid fluid is similar to previous MRI. IMPRESSION: 1. No acute intracranial findings. No evidence for acute infarct. 2. No change in white matter T2 hyperintense foci suggestive of small vessel disease. 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 3. A few punctate foci of susceptibility artifact on the gradient echo sequence which suggest trace old blood products/hemosiderin deposition. 4. No change in bilateral mastoid effusions. Electronically signed by: John Paul Drummond M.D. 09/04/2020 5:16 PM Medications Administered Discontinued Medications Acetaminophen (Ofirmev) 65 mls @ 200 mls/hr IV NOW ONE; Protocol Stop: 09/04/20 16:42 Last Infusion: 09/04/20 17:53 Dose: 0 mls/hr Documented by: [id number] Admin: 09/04/20 17:22 Dose: 200 mls/hr Documented by: [id number] ECG Additional Comments: Normal sinus rhythm Normal ECG When compared with ECG of 25-JUL-2020 06:18, Sinus rhythm has replaced Atrial fibrillation Vent. rate has decreased BY [address] no longer depressed in Anterior leads Code Status & VTE Plan Code Status CODE: DNR/DNI VTE: SCD's, Coumadin, ambulation VTE Prophylaxis Plan VTE Prophylaxis will be ordered: Yes Supervising Physician Co-Signing Physician Notes I discussed with nurse practitioner, agree with his note above. Patient has a very complicated past medical history, came in with recurrent symptoms of left- sided weakness. Symptoms resolved at the time of his evaluation. Work-up so far has been negative for acute CVA including CT and MRI. Patient appears to be on appropriate medications for stroke prophylaxis including aspirin, Plavix, and Coumadin as he does have a history of an AVR. Plan will be to monitor overnight, will ask neurology to see. Continue medications as ordered. Continue chronic medications including those for interstitial lung disease. PG Care Time/CCT Total # of Minutes Spent Total Time Spent with Patient: Total time spent is greater than 50% in coordination of care (as documented) at patient's floor/unit and/or counseling patient: Coding Level of Care Code 01915 Initial Inpt Care Lvl 3 Diagnoses CVA (cerebral vascular accident) I63.9 CVA mechanism: unspecified Fall W19.XXXA Encounter type: initial encounter Weakness R53.1 Aortic valve replaced Z95.2 Diabetes E11.42; Z79.4 Diabetes mellitus complication detail: with polyneuropathy Diabetes mellitus complication status: with neurologic complications Diabetes mellitus beef ribber insulin use: with jail use Diabetes mellitus type: type 2 Diabetic peripheral neuropathy E11.42 Seizure-like activity R56.9 HLD (hyperlipidemia) E78.2 Hyperlipidemia type: mixed hyperlipidemia Interstitial lung disease J84.9 Low back pain M54.5; G89.29 Back pain laterality: bilateral Chronicity: chronic Sciatica presence: without sciatica Migraine G43.909 Intractability: not intractable Migraine type: unspecified Status migrainosus presence: without status migrainosus Parkinsonism G20 Parkinsonism type: unspecified (1) Low back pain Back pain laterality: bilateral Chronicity: chronic Sciatica presence: without sciatica Qualified Code(s): M54.5 - Low back pain; G89.29 - Other chronic pain (2) Diabetes Diabetes mellitus complication detail: with polyneuropathy Diabetes mellitus complication status: with neurologic complications Diabetes mellitus jail insulin use: with beef ribber use Diabetes mellitus type: type 2 Qualified Code(s): E11.42 - Type 2 diabetes mellitus with diabetic polyneuropathy; Z79.4 - residential (current) use of insulin (3) Migraine Intractability: not intractable Migraine type: unspecified Status migrainosus presence: without status migrainosus Qualified Code(s): G43.909 - Migraine, unspecified, not intractable, without status migrainosus (4) HLD (hyperlipidemia) Hyperlipidemia type: mixed hyperlipidemia Qualified Code(s): E78.2 - Mixed hyperlipidemia (5) Parkinsonism Parkinsonism type: unspecified Qualified Code(s): G20 - Parkinson's disease (6) Fall Encounter type: initial encounter Qualified Code(s): W19.XXXA - Unspecified fall, initial encounter (7) CVA (cerebral vascular accident) CVA mechanism: unspecified Qualified Code(s): I63.9 - Cerebral infarction, unspecified
[2020-09-04] MEDS ORDERED: CARBOHYDRATES FOR HYPOGLYCEMIA PO PRN (18:10)
[2020-09-04] MEDS ORDERED: ONDANSETRON INJ 2 MG/ML 2 ML VIAL IV PRN (18:10)
[2020-09-04] MEDS ORDERED: CARBAMIDE PEROXIDE 6.5% 15 ML BTL OT PRN (18:10)
[2020-09-04] MEDS ORDERED: GLUCAGON FOR INJ 1 MG VIAL SQ PRN (18:10)
[2020-09-04] MEDS ORDERED: POLYETHYLENE (MIRALAX) 17 GM PACK PO PRN (18:10)
[2020-09-04] MEDS ORDERED: NITROGLYCERIN SL 0.4 MG/TAB TAB SL PRN (18:10)
[2020-09-04] MEDS ORDERED: PHARMACIST DISCHARGE MED REC CONSULT PRN (18:10)
[2020-09-04] MEDS ORDERED: GLUCOSE 10 TABS/TUBE PO PRN (18:10)
[2020-09-04] MEDS ORDERED: DEXTROSE 50% 50 ML SYRINGE IV PRN (18:10)
[2020-09-04] MEDS ORDERED: ALBUTEROL HFA 8 GM INHALER INH PRN (18:10)
[2020-09-04] MEDS ORDERED: GLUCOSE 40% GEL 15 GM TUBE PO PRN (18:10)
[2020-09-04] MEDS: WARFARIN SOD 7.5 MG TAB PO SCH (19:38)
[2020-09-04] MEDS: CARBIDOPA/LEVODOPA 25/100MG TAB PO SCH (20:03)
[2020-09-04] MEDS: ATORVASTATIN 40 MG TAB PO SCH (20:03)
[2020-09-04] MEDS: GABAPENTIN 300 MG CAP PO SCH (20:04)
[2020-09-04] MEDS: CHOLECALCIFEROL 1,000 UNITS 25 MCG TAB PO SCH (20:05)
[2020-09-04] MEDS: TOPIRAMATE 100 MG TAB PO SCH (20:06)
[2020-09-04] MEDS: levETIRAcetam 500 MG TAB PO SCH (20:06)
[2020-09-04] MEDS: INSULIN GLARGINE SOLOSTAR 100 UNITS/ML 3 ML PEN SQ SCH (20:10)
[2020-09-04] MEDS: INSULIN ASPART 100 UNITS/ML 3 ML PEN SC SCH (20:11)
[2020-09-05] MEDS: predniSONE 1 MG TAB PO SCH (07:48)
[2020-09-05] MEDS: TOPIRAMATE 100 MG TAB PO SCH ×2 (07:50→20:16)
[2020-09-05] MEDS: CARBIDOPA/LEVODOPA 25/100MG TAB PO SCH ×3 (07:51→20:16)
[2020-09-05] MEDS: GABAPENTIN 300 MG CAP PO SCH ×2 (07:53→20:15)
[2020-09-05] MEDS: levETIRAcetam 500 MG TAB PO SCH ×2 (07:53→20:15)
[2020-09-05] MEDS: INSULIN GLARGINE SOLOSTAR 100 UNITS/ML 3 ML PEN SQ SCH ×2 (08:02→20:14)
[2020-09-05] MEDS: INSULIN ASPART 100 UNITS/ML 3 ML PEN SC SCH ×4 (08:03→20:14)
--- NOTE | 2020-09-05 08:11 | Hospitalist Progress Note ---
Date of Service September 05, 2020 Assessment & Plan (1) CVA (cerebral vascular accident): Rule out CVA vs. TIA not a tPA candidate secondary to time as well as on Coumadin - NIHSS currently- 1 to 0 - CTA head negative - MRI - 1. No acute intracranial findings. No evidence for acute infarct. No change in white matter T2 hyperintense foci suggestive of small vessel disease. 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 A few punctate foci of susceptibility artifact on the gradient echo sequence which suggest trace old blood products/hemosiderin deposition. Neurological evaluation recommend starting baby aspirin 81 mg a day in addition to his Coumadin, this is begun 09/05 - Continue Coumadin patient's INR is therapeutic at 2.5 - Continue Atorvastatin 40 - Speech eval - ECHO 09/05/2020 shows normal LV function no regional wall motion abnormalities mild mitral regurg EF 60 to 65% no significant aortic valve dysfunction - - PT/OT (2) Fall: Fall with left sided weakness - No change in bilateral mastoid effusions. - Will add on Doribax for ear wax- evaluate for inner ear pathology with his falls. - PT/OT - No acute injury- continue with neurological examinations q2-q4 hours for DASH Any change in neurological status with falls and Coumadin- get stat CT scan of the head. (3) Weakness: Left sided weakness appears resolved, when patient coached to push and use his left side there was no difference in strength noted. (4) Aortic valve replaced: No acute needs, ECHO last admission poorly visualized, but without any increase in velocity - ECHO with CVA workup. - Continue with his Coumadin 7.5 mg daily - INR in the morning - Therapeutic today at 3.2 (5) Diabetes: Continue Lantus 20mg night - Sliding Scale Aspart - CF 20, ratio 1:15 (6) Diabetic peripheral neuropathy: Continue Gabapentin (7) Seizure-like activity: Patient reports history of seizures- he has seen a headache specialist and is to follow up with them he reports in October. - His last appointment was cancelled due to his most recent admission and rehab - Continue Keppra, Continue Topiramate, Continue Gabapentin - Seizure precautions (8) HLD (hyperlipidemia): As above, continue Atorvastatin 40 (9) Interstitial lung disease: Patient follows with rheumatology as well as with Pulmonary - He was to start Rituxan- Patient reports he had 1 dose and could not get his second secondary to his levels - Placed back on prednisone this time at 7mg per day. - No acute needs at this time - If he will be here through the weekend- Restarted Azithromycin for ILD - If he remains in house, he reports he is to have a CT scan of his chest performed for evaluation and pulmonary follow up. (10) Low back pain: Improved per patient - Continue with PT/OT/speech (11) Migraine: As above- no acute needs (12) Parkinsonism: Started trial Sinemet in June - He follows with Neurology Dr Sheikh - Continue Sinemet Admission and Anticipated Discharge Date Admission Date: September 04, 2020 Subjective Patient feels he is returned to his normal state. We discussed the fact that starting aspirin he says he was on aspirin at one point but self discontinued it because he thought the Coumadin was good enough. Takes Coumadin for mechanical aortic valve Review of Systems Review of Systems: Mild distress and fatigue no headache, blurry or double vision no speech or swallowing issues no chest pain, pressure or palpitations no shortness of breath, cough or wheezes no abdominal pain, nausea or vomiting, diarrhea or constipation no dysuria, hematuria or frequency no focal joint pain or swelling no back pain, CVA tenderness or radicular pain no bruising, bleeding or rashes Patient feels he still has baseline weakness of his left side for which he was rehabbing but certainly his symptoms of presentation of resolved no complaints of anxiety or depression.. Physical Exam Physical Exam: The patient appeared well nourished and normally developed. Vital signs as documented. Head exam is normocephalic atraumatic Neck is without JVD, thyromegaly, or carotid bruits. Lungs are clear to auscultation, no focal loss of breath sounds Cardiac exam, Rhythm is regular.. Click typical with a mechanical aortic valve is heard Abdominal exam reveals normal bowel sounds, soft non tender, no masses Extremities are nonedematous and both pedal pulses are present Neurologic exam is alert and oriented, recent minor left-sided strength weakness but generally fairly equal bilaterally Skin is without bruises or rashes Psychologically is without concerns for anxiety or depression Results & Data Results & Data ([facility]) Vital Signs (Past 12 Hours) Vital Signs Temp Pulse Pulse Resp BP Pulse Ox 09/05/20 07:20 57 L 09/05/20 07:15 98.1 F 57 L 18 129/84 96 09/05/20 03:55 98.1 F 77 18 113/63 98 09/04/20 23:30 63 09/04/20 23:00 97.7 F 70 18 105/69 97 PG Care Time/CCT Total # of Minutes Spent Total Time Spent with Patient: Total time spent is greater than 50% in coordination of care (as documented) at patient's floor/unit and/or counseling patient: Coding Level of Care Code 64428 Subseq Hosp Care Lvl 3 Diagnoses CVA (cerebral vascular accident) I63.9 CVA mechanism: unspecified Fall W19.XXXA Encounter type: initial encounter Weakness R53.1 Aortic valve replaced Z95.2 Diabetes E11.42; Z79.4 Diabetes mellitus complication detail: with polyneuropathy Diabetes mellitus complication status: with neurologic complications Diabetes mellitus fdc insulin use: with terminal computer operator use Diabetes mellitus type: type 2 Diabetic peripheral neuropathy E11.42 Seizure-like activity R56.9 HLD (hyperlipidemia) E78.2 Hyperlipidemia type: mixed hyperlipidemia Interstitial lung disease J84.9 Low back pain M54.5; G89.29 Back pain laterality: bilateral Chronicity: chronic Sciatica presence: without sciatica Migraine G43.909 Intractability: not intractable Migraine type: unspecified Status migrainosus presence: without status migrainosus Parkinsonism G20 Parkinsonism type: unspecified (1) Low back pain Back pain laterality: bilateral Chronicity: chronic Sciatica presence: without sciatica Qualified Code(s): M54.5 - Low back pain; G89.29 - Other chronic pain (2) Diabetes Diabetes mellitus complication detail: with polyneuropathy Diabetes mellitus complication status: with neurologic complications Diabetes mellitus fdc insulin use: with fdc use Diabetes mellitus type: type 2 Qualified Code( s): E11.42 - Type 2 diabetes mellitus with diabetic polyneuropathy; Z79.4 - terminal computer operator (current) use of insulin (3) Migraine Intractability: not intractable Migraine type: unspecified Status migrainosus presence: without status migrainosus Qualified Code(s): G43.909 - Migraine, unspecified, not intractable, without status migrainosus (4) HLD (hyperlipidemia) Hyperlipidemia type: mixed hyperlipidemia Qualified Code(s): E78.2 - Mixed hyperlipidemia (5) Parkinsonism Parkinsonism type: unspecified Qualified Code(s): G20 - Parkinson's disease (6) Fall Encounter type: initial encounter Qualified Code(s): W19.XXXA - Unspecified fall, initial encounter (7) CVA (cerebral vascular accident) CVA mechanism: unspecified Qualified Code(s): I63.9 - Cerebral infarction, unspecified
[2020-09-05 08:28] LABS: Basophils # (auto) 0.01 K/uL (0-0.2); Basophils % (auto) 0.3 %; Eosinophils # (auto) 0.11 K/uL (0-0.5); Eosinophils % (auto) 3.2 %; Hematocrit (blood only) 30.7 % (42-52); Hemoglobin 9.8 g/dL (14.0-18.0); Immature Granulocytes # (auto) 0.01 K/uL (0.00-0.02); Immature Granulocytes % (auto) 0.3 %; Lymphocytes # (auto) 0.98 K/uL (1.2-3.4); Lymphocytes % (auto) 28.5 %; Mean Corpuscular Hemoglobin 27.1 pg (25-34); Mean Corpuscular Hgb Conc 31.9 g/dL (32-36); Mean Corpuscular Volume 84.8 fL (80-100); Mean Platelet Volume 9.4 fL (7.4-10.4); Monocytes # (auto) 0.23 K/uL (0.11-0.59); Monocytes % (auto) 6.7 %; Platelet Count 162 K/uL (130-400); RDW Coefficient of Variation 15.8 % (11.5-14.5); RDW Standard Deviation 49.1 fL (36.4-46.3); Red Blood Count 3.62 M/uL (4.7-6.1); White Blood Count 3.44 K/uL (4.8-10.8)
[2020-09-05 08:40] LABS: INR 2.5 (0.9-1.1); Prothrombin Time 23.9 Seconds (9.0-12.0)
[2020-09-05 09:04] LABS: BUN Creatinine Ratio 22.4 (10-20); Creatinine Clr Calc Pharmacy 77.6 ml/min; Est GFR (Non-African American) 73.3; Potassium 3.5 mmol/L (3.5-5.1)
--- NOTE | 2020-09-05 10:35 | Neurology Consultation ---
Date of Consultation September 05, 2020 Assessment & Plan (1) TIA (transient ischemic attack): (2) Acute left-sided muscle weakness: (3) Headache: (4) Parkinsonism: (5) Seizure-like activity: patient had an episode of transient left-sided weakness twice. This is consistent with a TIA. On examination currently he does not have any focal weakness or speech issues. He has some known mild parkinsonism ( on the right side) but has no tremor today. He has some mild right upper extremity rigidity compared to the left and a cautious gait, which is likely a mixture of his recent low back surgery and the parkinsonism. He has a history of migraines which have improved and has some nonspecific occipital headaches left over from his minor closed-head injury 6 days ago. He is not confused does not have any other concussion symptoms currently. He has a history of seizures versus pseudoseizures but no events recently. He has post lumbar surgery July 20 and has some mild low back pain but no radicular symptoms or leg weakness today. Recommendations: 1. 81 milligram aspirin tablet daily. 2. Continue Coumadin in lieu of his cardiac issues. 3. I see no need for additional neurologic testing at this time. 4. otherwise keep medications the same and follow up with Dr. Sheikh as an outpatient. Overall, I spent a total of 90 minutes with this case including review of records, review of MRI films, direct evaluation the patient at bedside, and discussion of the case with the patient and RN at bedside and Dr. Rosales including differential diagnosis and treatment options. History of Present Illness Reason for Consultation: Patient is a 75-year-old, I was asked to see the request of Dr. Willingham, for neurologic consultation regarding possible stroke Requesting Physician: Dr. Willingham Attending Physician: Yo Rosales MD History of Present Illness this patient has a complicated medical history. He is post mechanical aortic valve replacement and a history of paroxysmal atrial fibrillation. He has a history of dyslipidemia and diabetes as well as interstitial lung disease. Starting age 20 he had migraine headaches and these have been intermittent since. He was doing much better over the last year to with his headaches. Patient has been seeing Dr. Sheikh for syncopal and seizure episodes. 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 He is scheduled to get more extensive monitoring in the near future at [facility], to determine seizures versus pseudoseizures. Currently he is on topiramate 100 milligrams twice daily ( which also helps prevent headaches), levetiracetam 1000 milligrams twice a day, and gabapentin 600 milligrams twice a day (which also helps chronic pain). in April, the patient had syncope and probable mild concussion. He saw Dr. Sheikh in the hospital. By June of 2020 Dr. Sheikh felt that he had early Parkinson's disease with a mild resting tremor and some rigidity in the right arm and leg. On July 02 he was initiated on carbidopa / levodopa, 25/100, 1/2 tablet 3 times daily. Patient believes this resolved his tremor and make movements in the right arm and leg better. Patient has a history of significant lumbar spinal stenosis with neurogenic claudication and bilateral lower extremity symptoms. He underwent a decompression laminectomy surgery with fusion and cage by Dr. Agarwal on July 20, 2020 from L3 through S1. Apparently his left lower extremity was remarkably improved. His right lower extremity was improved also but he has some pain in his back and right leg. He is getting intensive therapy. He spent 30 days in the hospital because of some weakness and aspiration pneumonia complications, being discharged on August 12. He then spent 10 days in the rehab hospital locally. He has been at home since. About 6 days ago he fell and hit the back of his head. He is not sure why he fell and does not recall details. He has had an occipital headache since. He also injured his right hip some. He went to the emergency room but a CT scan of the head was unremarkable and he was discharged. On September 04, he got up at 6 in the morning feeling well. Around 9 o'clock in the morning he was standing in the kitchen and had the sudden onset of left arm and leg weakness. There was no numbness or pain. He had no speech problem or mentation issue. He felt that his vision was blurry however. This blurry vision may actually a ever since he hit his head 6 days previous. He sat for half an hour then decided to go back to bed. He nap for an hour and when he woke up he had no weakness or other residual symptoms. around 1300 the weakness came back in the left arm and leg but he is uncertain how long it lasted. His son made him come to the emergency room. He arrived September 04 at 1434, with a temperature of 36.2, pulse 70s and regular, respiratory rate 18, blood pressure 143/75 and O2 saturation 97 percent. On exam he had no speech or memory issues or facial droop. His left arm and leg were a little weak compared to the right and his left leg was considered ataxic. CBC showed some mild anemia. Chem profile showed a glucose of 205 and alk-phos of 149. CT scan of the head showed no acute changes. MRI of the brain showed no acute stroke. There were some old ischemic changes noted that were stable. This morning he feels back to baseline has been up walking to the bathroom twic e. Blood pressure is 129/84. He has been in normal sinus rhythm. He has an anemia on CBC this morning. Triglycerides were 129 and cholesterol 120. hemoglobin A1c is pending. Allergies Allergy/AdvReac Type Severity Reaction Status Date / Time Iodinated Contrast Media Allergy Severe Anaphylaxis Verified 09/04/20 15:16 shellfish derived Allergy Severe Anaphylaxis Verified 09/04/20 15:16 Tetanus Vaccines and Toxoid Allergy Unknown Unknown Verified 09/04/20 15:16 Home Medications Medication Instructions Recorded Confirmed Type Trulicity 1.5 mg SUBCUT WK 01/20/20 09/04/20 History albuterol sulfate [Ventolin HFA] 2 puff INHALATION Q4H PRN 01/20/20 09/04/20 History allopurinol 200 mg PO HS 01/20/20 09/04/20 History azithromycin 250 mg PO .[email or web address] 01/20/20 09/04/20 History cholecalciferol (vitamin D3) 2,000 unit PO HS 01/20/20 09/04/20 History [Vitamin D3] finasteride 5 mg PO QAM 01/20/20 09/04/20 History nitroglycerin 0.4 mg SUBLINGUAL DIRECTED PRN 01/20/20 09/04/20 History qqryheg-wenzukeom-aecw 1 tab PO HS 02/05/20 09/04/20 History levetiracetam 1,000 mg tablet 1,000 mg PO BID 90 Days #180 tab 04/02/20 09/04/20 Rx topiramate 100 mg tablet 100 mg PO BID 30 Days #60 tab 05/17/20 09/04/20 Rx atorvastatin 40 mg PO HS 05/28/20 09/04/20 History carbidopa 25 mg-levodopa 100 mg 0.5 tab PO TID #90 tab 07/02/20 09/04/20 Rx tablet Lantus Solostar U-100 Insulin 20 unit SUBCUT BID 07/10/20 09/04/20 History apixaban [Eliquis] 5 mg PO BID #90 tab 08/12/20 09/04/20 Rx gabapentin 600 mg PO BID 09/04/20 09/04/20 History insulin aspart U-100 [Novolog 0 unit SUBCUT ACHS 09/04/20 09/04/20 History Flexpen U-100 Insulin] prednisone 1 mg PO DAILY 09/04/20 09/04/20 History warfarin 7.5 mg PO DAILY 09/04/20 09/04/20 History Patient History Medical History CAD (coronary artery disease) Dehydration Diabetes HLD (hyperlipidemia) Hypoxia Interstitial lung disease Interstitial lung disease due to connective tissue disease Lung nodule Neurogenic claudication Palliative care encounter Polymyositis Polymyositis Prostate cancer s/p XRT Rheumatoid arthritis Seizure-like activity Stroke-like symptom 12/2019, w/ blurry vision and dysarthria. mild R sided wkness. attending outpatient physical therapy w/ good improvement in strength (5+/5 strength of all 4 extremities as of 05/28/20) Thoracic ascending aortic aneurysm s/p repair Weakness Surgical History H/O hernia repair History of aortic valve replacement mechanical History of cholecystectomy History of fusion of cervical spine History of gastric bypass lap band History of heart artery stent History of lung biopsy 2019 History of partial nephrectomy Family History (Updated 09/05/20 @ 10:27 by Irving Sam MD) Mother , age 87 of pulmonary issues Rheumatoid arthritis Father , in his mid 80s of a stroke Stroke Other Coronary heart disease Social History Smoking Status: Never smoker Second Hand Exposure: No; Hx Alcohol Use: No Hx Substance Use: No Preferred Language: Tajik Communication Ability: Effective Hearing Ability: Hard of Hearing Shellfish Dredge Operator Required: No Beliefs That Will Affect Care: None marital status: / Current Living Situation: Family Current Living Situation Comment: spends nights with son, has [employer] weekdays from 12-29 current occupational status: retired 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 Feels Safe at Home: Yes Assistive Devices: Hearing Aid - Bilateral, Oxygen - at Night and Walker Review of Systems Constitutional: + fatigue; no fever and no weakness Eyes: + worsening vision ( blurry); no diplopia and no eye pain Ear, Nose, Mouth, Throat: + hearing loss; no ear pain, no tinnitus, no dizziness, no hoarseness and no dysphagia Respiratory: no cough and no dyspnea Cardiovascular: no chest pain, no palpitations and no lightheadedness Gastrointestinal: no abdominal pain, no nausea and no vomiting Genitourinary: no dysuria and no urinary incontinence Musculoskeletal: + back pain; no neck pain, no radicular pain, no joint pain and no myalgia Integumentary: no rash and no lesions Neurologic: + headache(s); no gait abnormality, no localized weakness, no gen eralized weakness, no tingling, no numbness, no tremor(s), no abnormal movements, no abnormal speech, no confusion and no memory loss Psychiatric: no depression, no irritability, no anxiety, no difficulty concentrating, no confusion and no hallucinations Endocrine: no fatigue and no flushing Hematologic / Lymphatic: no easy bleeding and no easy bruising Allergy / Immunological: no urticaria and no problem reported Exam (Neuro) Physical Exam: The patient is right-handed. The patient is awake, alert, and attentive. Speech is normal without any aphasia or dysarthria. he can name objects, repeat phrases, and has normal spontaneous speech. Mentation and thought processes are intact, with orientation to person, place and time, and normal fund of knowledge. Attention and concentration are normal. Mood and affect are normal and appropriate. General appearance and grooming are normal. Short and long-term memory are intact. Pupils are 3 mm bilaterally and reactive to light. Extraocular eye muscles are intact without nystagmus. Visual acuity and visual [place] seem normal grossly to confrontation. There are no deficits to sensation in the face in all 3 distributions of the fifth cranial nerve bilaterally. Corneal reflexes are positive bilaterally. Facial strength and symmetry was normal bilaterally. Hearing is decreased robert aterally. Palate moves well without asymmetry. There is normal sternocleidomastoid and trapezius (shoulder shrug) strength bilaterally. Tongue is midline with good strength bilaterally. Neck has a full range of motion without discomfort. There are no cervical bruits bilaterally. There are no cranial or ocular bruits. Heart is without murmur. There is a regular rhythm and rate. Cervical, thoracic, and lumbar spine are nontender to palpation. Gait is narrow based, but very cautious and slow. Stance is reasonable eyes open. With outstretched arms there is no drift. There are no resting, postural, or action tremors. There is no ataxia with finger to nose testing. There is good facility in the hands. No other abnormal involuntary movements are noted. Motor strength is 5/5 diffusely in the arms bilaterally including deltoids, biceps, triceps, brachioradialis, wrist flexors and extensors, finance broker, and intrinsic hand muscles. Motor strength is 5/5 diffusely in the legs bilaterally including hip flexors, quadriceps, hamstrings, gastrocnemius, tibialis anterior, tibialis posterior, and Peroneii muscles. Toe extensors are normal and there is good bulk in the extensor digitorum brevis muscles bilaterally. The limbs Reasonable tone but there may be some slight increase in rigidity in the right arm compared to the left. Sensory examination is intact to touch and pin throughout all 4 limbs diffusely. Reflexes are 1/4 in the biceps, triceps, brachioradialis, and quadriceps tendons bilaterally. Achilles tendon reflexes are absent bilaterally. There is no clonus bilaterally. Toes are downgoing with plantar stimulation bilaterally. Peripheral pulses are present and of normal quality distally in all 4 limbs. There is no peripheral edema noted in the limbs. Results & Data ([facility]) Vital Signs (Past 12 Hours) Vital Signs Temp Pulse Pulse Resp BP Pulse Ox 09/05/20 07:20 57 L 09/05/20 07:15 36.7 C 57 L 18 129/84 96 09/05/20 03:55 36.7 C 77 18 113/63 98 09/04/20 23:30 63 09/04/20 23:00 36.5 C 70 18 105/69 97 PG Care Time/CCT Total # of Minutes Spent Total Time Spent with Patient: Total time spent is greater than 50% in coordination of care (as documented) at patient's floor/unit and/or counseling patient: Coding Level of Care Code 16628 Initial Inpt Care Lvl 3 Diagnoses TIA (transient ischemic attack) G45.9 Acute left-sided muscle weakness M62.81 Headache R51.9 Headache chronicity pattern: acute headache Headache type: unspecified Intractability: not intractable Parkinsonism G20 Parkinsonism type: unspecified Seizure-like activity R56.9 Time Spent (min) 90 Comment add [id number] to the [id number] (1) Headache Headache chronicity pattern: acute headache Headache type: unspecified Intractability: not intractable Qualified Code(s): R51.9 - Headache, unspecified (2) Parkinsonism Parkinsonism type: unspecified Qualified Code(s): G20 - Parkinson's disease
[2020-09-05] MEDS: ASPIRIN 81 MG CHEW PO SCH (11:03)
--- NOTE | 2020-09-05 11:42 | Electrocardiogram Report ---
Test Reason : Blood Pressure : / mmHG Vent. Rate : 070 BPM Atrial Rate : 070 BPM P-R Int : 146 ms QRS Dur : 084 ms QT Int : 420 ms P-R-T Axes : 017 013 082 degrees QTc Int : 453 ms Poor data quality, interpretation may be adversely affected Normal sinus rhythm Normal ECG When compared with ECG of 25-JUL-2020 06:18, Sinus rhythm has replaced Atrial fibrillation Vent. rate has decreased BY [address] no longer depressed in Anterior leads Confirmed by Josh Vora [id number]) on 09/05/2020 11:42:10 AM Referred By: REFERRED SELF Confirmed By:Josh Vora
--- NOTE | 2020-09-05 12:23 | XCELERA ---
[id number]
[2020-09-05] MEDS: WARFARIN SOD 7.5 MG TAB PO SCH (16:55)
[2020-09-05] MEDS: ATORVASTATIN 40 MG TAB PO SCH (20:15)
[2020-09-05] MEDS: CHOLECALCIFEROL 1,000 UNITS 25 MCG TAB PO SCH (20:16)
[2020-09-05] MEDS ORDERED: ACETAMINOPHEN 500 MG TAB PO PRN (20:47)
[2020-09-06 07:05] LABS: Basophils # (auto) 0.01 K/uL (0-0.2); Basophils % (auto) 0.3 %; Eosinophils # (auto) 0.11 K/uL (0-0.5); Eosinophils % (auto) 3.1 %; Hematocrit (blood only) 32.4 % (42-52); Hemoglobin 10.1 g/dL (14.0-18.0); Immature Granulocytes # (auto) 0.01 K/uL (0.00-0.02); Immature Granulocytes % (auto) 0.3 %; Lymphocytes # (auto) 0.81 K/uL (1.2-3.4); Lymphocytes % (auto) 22.9 %; Mean Corpuscular Hemoglobin 27.2 pg (25-34); Mean Corpuscular Hgb Conc 31.2 g/dL (32-36); Mean Corpuscular Volume 87.1 fL (80-100); Mean Platelet Volume 9.6 fL (7.4-10.4); Monocytes # (auto) 0.23 K/uL (0.11-0.59); Monocytes % (auto) 6.5 %; Neutrophils # (auto) 2.36 K/uL (1.4-6.5); Neutrophils % (auto) 66.9 %; Platelet Count 171 K/uL (130-400); RDW Coefficient of Variation 15.7 % (11.5-14.5); RDW Standard Deviation 50.7 fL (36.4-46.3); Red Blood Count 3.72 M/uL (4.7-6.1); White Blood Count 3.53 K/uL (4.8-10.8)
[2020-09-06 07:28] LABS: Prothrombin Time 19.4 Seconds (9.0-12.0)
[2020-09-06 07:30] LABS: BUN Creatinine Ratio 21.3 (10-20); Calcium 9.3 mg/dl (8.5-10.1); Creatinine Clr Calc Pharmacy 77.4 ml/min; Est GFR (Non-African American) 73.3; Potassium 3.6 mmol/L (3.5-5.1)
[2020-09-06 07:54] LABS: Estimated Average Glucose 166 mg/dl; Hemoglobin A1C 7.4 % (4.5-5.6)
[2020-09-06] MEDS ORDERED: AZITHROMYCIN 250 MG TAB PO SCH (09:00)
[2020-09-06] MEDS: predniSONE 1 MG TAB PO SCH (09:41)
[2020-09-06] MEDS: TOPIRAMATE 100 MG TAB PO SCH (09:41)
[2020-09-06] MEDS: ASPIRIN 81 MG CHEW PO SCH (09:41)
[2020-09-06] MEDS: CARBIDOPA/LEVODOPA 25/100MG TAB PO SCH (09:42)
[2020-09-06] MEDS: levETIRAcetam 500 MG TAB PO SCH (09:42)
[2020-09-06] MEDS: GABAPENTIN 300 MG CAP PO SCH (09:42)
[2020-09-06] MEDS: INSULIN ASPART 100 UNITS/ML 3 ML PEN SC SCH ×2 (09:49→12:26)
[2020-09-06] MEDS: INSULIN GLARGINE SOLOSTAR 100 UNITS/ML 3 ML PEN SQ SCH (09:50)
[2020-09-06] MEDS ORDERED: STROKE PATIENT DISCHARGE STA (11:03)
--- NOTE | 2020-09-06 11:07 | Discharge Summary ---
Date of Service September 06, 2020 Admission HPI Per Admitting Provider 75 YOM with complicated medical history to include Aortic root graft, Mechanical AVR in 2003 (Coumadin), Migraines, seizure history, neuropathy, ILD (on prednisone and Rituxan), HLD, DMII on insulin, Parkinson disease, lumbar fusion, and BPH. Patient was in house for 3 weeks following his L3-S1, and fusion in June for lumbar spinal stenosis with neurogenic claudication. Patient comes in to the emergency room today for concerns of left sided weakness, left sided blurred vision, with left sided pronator drift per ER report. The patient states that this occurred at 0900 this morning as he was standing in his kitchen and his left side just gave out and he could not use it to get himself up. This resolved and he was able to get up and into his chair. He ate lunch and around 1330, his left sided weakness started again, so he called his son. Of note the patient had a fall on Sunday after tripping over a rug, his INR was noted to be elevated to 5.2, so he held a day of Coumadin and returned to using his 7.5 mg daily. Today his INR is 3.2 therapeutic. In the ER the patient was noted above to have 4/5 strength in his left upper and left lower extremities and left pronator drift, with left ataxia. He had a CT scan of the head and secondary to his Allergy to contrast/iodine a CTA was not performed. He did have an MRI of the brain with out contrast as well and that is pending. Upon my examination returning from the MRI, the patient was up standing at the bedside using his urinal, there was no balance or gait abnormalities when getting back into the bed noted. NIHS- 1 for dysarthria, but this may be due to his poor dentition and hearing. During the patient's previous admission, he was seen by palliative care. He was suffering from dysphagia, he was evaluated and placed on honey thick diet with alternations between food and liquid. he went to rehab and reports he graduated to a soft minced diet and no liquid restrictions. Bedside swallow screen and speech evaluation placed. Patient will be admitted to continue stroke work up. MRI done, ECHO, neurology consult placed, monitor on telemetry for 24 hours for dysrhythmia. Principal Diagnosis TIA with left sided weakness Discharge Exam Constitutional WD/WN, vitals as above + frail appearing; no acute distress Neck trachea midline, no thyromegaly Respiratory normal respiratory effort, lungs clear to auscultation Cardiovascular RRR, no murmur, no edema Gastrointestinal (Abdomen) normal bowel sounds, soft, nontender, no hepatosplenomegaly Musculoskeletal Head/Neck/Chest: normocephalic, head atraumatic and neck supple Extremities: extremities normal to inspection and strength 5/5 throughout; no cyanosis, no clubbing and no petechiae Skin no rashes, warm and dry Neurologic normal touch/pain/proprioception, CN's II-XI intact bilaterally, moves all extremities and awake; no focal motor deficits Motor/Sensory: + tremor Discharge Data Allergies Allergy/AdvReac Type Severity Reaction Status Date / Time Iodinated Contrast Media Allergy Severe Anaphylaxis Verified 09/04/20 15:16 shellfish derived Allergy Severe Anaphylaxis Verified 09/04/20 15:16 Tetanus Vaccines and Toxoid Allergy Unknown Unknown Verified 09/04/20 15:16 Consultations 09/04/20 16:26 ED Decision to Admit Stat 09/04/20 18:10 Consult Neurology Routine Ordered Studies 09/04/20 15:02 CT head/brain wo con Stat 09/04/20 16:23 MR brain wo con Stat Hospital Course (1) TIA (transient ischemic attack): presented with left sided weakness, transient MRI brain did NOT show any acute stroke neurology consulted, recommended that patient add daily aspirin 81mg PT/OT evaluated patient, safe to be discharged to home with home health will follow up with PCP and with neurology (2) Weakness: Left sided weakness appears resolved, when patient coached to push and use his left side there was no difference in strength noted diagnosed as TIA since MRI brain negative for acute stroke added aspirin 81mg daily (3) Aortic valve replaced: No acute needs, ECHO last admission poorly visualized, but without any increase in velocity - ECHO with CVA workup. - Continue with his Coumadin 7.5 mg daily - INR therapeutic (4) Diabetes: Continue Lantus 20mg night - Sliding Scale Aspart - CF 20, ratio 1:15 sugars stable (5) Diabetic peripheral neuropathy: Continue Gabapentin (6) Seizure-like activity: Patient reports history of seizures- he has seen a headache specialist and is to follow up with them he reports in October. - His last appointment was cancelled due to his most recent admission and rehab - Continue Keppra, Continue Topiramate, Continue Gabapentin - Seizure precautions (7) HLD (hyperlipidemia): As above, continue Atorvastatin 40 (8) Interstitial lung disease: Patient follows with rheumatology as well as with Pulmonary - He was to start Rituxan- Patient reports he had 1 dose and could not get his second secondary to his levels - Placed back on prednisone this time at 7mg per day. - No acute needs at this time - If he will be here through the weekend- Restarted Azithromycin for ILD - discharge this morning so he can go for outpatient CT chest, results to Dr. Ortega, pulmonology (9) Low back pain: Improved per patient - Continue with PT/OT/speech (10) Migraine: As above- no acute needs (11) Parkinsonism: Started trial Sinemet in June - He follows with Neurology Dr Sheikh - Continue Sinemet 25/100 Total Time Total Time Spent Total Time Spent (In Minutes): 32 Total Time Includes: Examination of the Patient, Discharge Planning and Medication Reconciliation Discharge Plan Discharge Items Patient Disposition: Home - Home Health Services Reason For Visit: CVA RULE OUT Discharge Diagnosis: TIA Condition on Discharge: Good Goals: improve strength and mobility Activity: Resume your previous activity Weightbearing: Full weightbearing Non-emergency contact: Primary Care Provider Call non-emergency contact if: you have any medication questions and your s ymptoms worsen Follow-up/Referrals: Josh Gaspar MD [Primary Care Provider] - 09/10/20 3:40 am () Diet: Carb Consistent or DM2 and Heart Healthy Addtl Attending Provider Instructions: Medications: - ASPIRIN: add 81mg aspirin to your daily regimen, no other changes made Left side weakness, suspected transient ischemic attack (TIA) MRI brain did not show any acute stroke echocardiogram was normal, EF was preserved at 65% continue diabetes control, blood pressure control, Coumadin and add aspirin follow up with PCP and should keep previously scheduled appt with Dr. Sheikh with neurology Risk Factors for Stroke: You can reduce your chances of stroke by working with your medical provider to adopt a healthy lifestyle. Some specific ways to lower your chance of stroke are: * If you are a smoker, now is the time to stop smoking cigarettes * If you are diabetic, improve the control of your blood sugars * Avoid excessive amounts of alcohol * Control high blood pressure * Lose weight if you are overweight * Be sure to lead an active lifestyle * Eat a healthy diet low in salt, cholesterol and fat You should know about other risk factors for stroke that you are unable to control. These include: * Age 55 years or older * Male gender * Certain racial groups: , or / * Family History of Stroke, Mini stroke or Heart Attack * Sickle Cell Disease Follow Up: It is important for you to keep your follow up appointments with your medical provider. Who to Call and When: Medical Emergencies: Call 911 immediately if you experience any of the following warning signs and symptoms of Stroke: * Sudden numbness or weakness of the face, arm or leg, especially on one side of the body * Sudden confusion, trouble speaking or understanding * Sudden trouble seeing in one or both eyes * Sudden trouble walking, dizziness, loss of balance or coordination * Sudden severe headache with no cause Do not delay calling 911 if you experience any warning signs or symptoms of a stroke. Delay in seeking medical attention may affect what treatments can be given to you. . Pending Studies at Discharge: No Stand-Alone Forms: My [facility], Smoking Cessation Medications and DC Order Prescriptions: New aspirin [Adult Low Dose Aspirin] 81 mg tablet,delayed release (DR/EC) 81 mg PO DAILY Qty: 30 RF: 0 Continued topiramate 100 mg tablet 100 mg PO BID 30 Days Qty: 60 RF: 5 carbidopa-levodopa 25-100 mg tablet 0.5 tab PO TID Qty: 90 RF: 2 levetiracetam 1,000 mg tablet 1,000 mg PO BID 90 Days Qty: 180 RF: 1 azithromycin 250 mg Tablet 250 mg PO .[email or web address] RF: 0 allopurinol 100 mg Tablet 200 mg PO HS RF: 0 nitroglycerin 0.4 mg Tablet, Sublingual 0.4 mg sublingual DIRECTED PRN (Reason: Chest Pain) RF: 0 albuterol sulfate [Ventolin HFA] 90 mcg/actuation Hfa Aerosol Inhaler 2 puff INHALATION Q4H PRN (Reason: Wheezing) RF: 0 finasteride 5 mg Tablet 5 mg PO QAM RF: 0 Trulicity 1.5 mg/0.5 mL Pen Injector 1.5 mg SUBCUT WK RF: 0 cholecalciferol (vitamin D3) [Vitamin D3] 50 mcg (2,000 unit) Capsule 2,000 unit PO HS RF: 0 [id number] 333-133-5 mg Tablet 1 tab PO HS RF: 0 atorvastatin 40 mg tablet 40 mg PO HS RF: 0 Lantus Solostar U-100 Insulin 100 unit/mL (3 mL) insulin pen 20 unit SUBCUT BID RF: 0 warfarin 7.5 mg tablet 7.5 mg PO DAILY RF: 0 prednisone 1 mg tablet 7 mg PO DAILY RF: 0 insulin aspart U-100 [Novolog Flexpen U-100 Insulin] 100 unit/mL (3 mL) insulin pen 0 unit SUBCUT ACHS RF: 0 gabapentin 300 mg capsule 600 mg PO BID RF: 0 Discharge Orders: Discharge Order (Routine); Ordered 09/06/20 Ordered By: Russell Sen/Other Patient Handouts: Managing Type 2 Diabetes, Managing Diabetes: The A1C Test Admission Data Admit Date/Time: 09/04/20 17:14 Attending Provider: Russell Ram Admit Provider: Chaim Willingham Primary Care Provider: Josh Gaspar Other Providers: Chaim Willingham ; Irving Sam ; [facility] Other Interventions: Discharge Summary Assessment (RN) Last Done: 09/06/20 13:04 Coding Level of Care Code D/C Day Management >30 mins Diagnoses TIA (transient ischemic attack) G45.9 Weakness R53.1 Aortic valve replaced Z95.2 Diabetes E11.42; Z79.4 Diabetes mellitus complication detail: with polyneuropathy Diabetes mellitus complication status: with neurologic complications Diabetes mellitus freelance art director insulin use: with care home use Diabetes mellitus type: type 2 Diabetic peripheral neuropathy E11.42 Seizure-like activity R56.9 HLD (hyperlipidemia) E78.2 Hyperlipidemia type: mixed hyperlipidemia Interstitial lung disease J84.9 Low back pain M54.5; G89.29 Back pain laterality: bilateral Chronicity: chronic Sciatica presence: without sciatica Migraine G43.909 Intractability: not intractable Migraine type: unspecified Status migrainosus presence: without status migrainosus Parkinsonism G20 Parkinsonism type: unspecified
--- NOTE | 2020-09-06 14:07 | Pharmacy Report ---
Pharmacist Stroke Counseling - Date of Service September 06, 2020 - Scope: Pharmacy has been consulted to provide medication discharge counseling for this patient admitted with [ischemic stroke] [hemorrhagic stroke] [transient ischemic attack] as per the Pharmacist Discharge Counseling for Stroke Patients Protocol . - Medications on Discharge: Home Medications Medication Instructions Recorded Confirmed Trulicity 1.5 mg SUBCUT WK 01/20/20 09/04/20 albuterol sulfate [Ventolin HFA] 2 puff INHALATION Q4H PRN 01/20/20 09/04/20 allopurinol 200 mg PO HS 01/20/20 09/04/20 azithromycin 250 mg PO [email or web address] 01/20/20 09/04/20 cholecalciferol (vitamin D3) 2,000 unit PO HS 01/20/20 09/04/20 [Vitamin D3] finasteride 5 mg PO QAM 01/20/20 09/04/20 nitroglycerin 0.4 mg SUBLINGUAL DIRECTED PRN 01/20/20 09/04/20 vbopigo-[id number]-dpni 1 tab PO HS 02/05/20 09/04/20 atorvastatin 40 mg PO HS 05/28/20 09/04/20 Lantus Solostar U-100 Insulin 20 unit SUBCUT BID 07/10/20 09/04/20 gabapentin 600 mg PO BID 09/04/20 09/04/20 insulin aspart U-100 [Novolog 0 unit SUBCUT ACHS 09/04/20 09/04/20 Flexpen U-100 Insulin] prednisone 7 mg PO DAILY 09/04/20 09/06/20 warfarin 7.5 mg PO DAILY 09/04/20 09/04/20 Medication Instructions Recorded levetiracetam 1,000 mg tablet 1,000 mg PO BID 90 Days #180 tab 04/02/20 topiramate 100 mg tablet 100 mg PO BID 30 Days #60 tab 05/17/20 carbidopa 25 mg-levodopa 100 mg 0.5 tab PO TID #90 tab 07/02/20 tablet aspirin [Adult Low Dose Aspirin] 81 mg PO DAILY #30 tab 09/06/20 - Action: The above medications, specifically ones for stroke treatment/prophylaxis, have been reviewed in detail with the patient and/or patient brand representative(s) prior to discharge. This includes indication, common adverse reactions, drug interactions, and medication administration. Medication counseling has been employed using the teach-back method to ensure understanding. - Outcome: The patient and/or patient brand representative(s) have demonstrated understanding of the medications. Additional comments: Provided counseling to patient and reviewed new medication, including aspirin. No other medication changes on discharge. Patient demonstrated understanding of changes. No pertinent positives on interview. No questions from patient. Thank you for allowing pharmacy to be involved in the care of this patient. Please call [phone] with any additional questions
== END 2020-09-06 13:40 | disposition home health service (06) ==
LOC: ED 14:30 → SUATTDRO 17:14 → INTOOBSV 17:14 → 2N 17:14

== ENCOUNTER 2020-10-11 15:25 | Inpatient (IN) ==
[2020-10-11 17:07] LABS: Eosinophils # (auto) 0.01 K/uL (0-0.5); Eosinophils % (auto) 0.2 %; Hematocrit (blood only) 32.3 % (42-52); Hemoglobin 10.6 g/dL (14.0-18.0); Immature Granulocytes # (auto) 0.05 K/uL (0.00-0.02); Immature Granulocytes % (auto) 0.8 %; Lymphocytes # (auto) 0.93 K/uL (1.2-3.4); Lymphocytes % (auto) 14.8 %; Mean Corpuscular Hemoglobin 27.8 pg (25-34); Mean Corpuscular Hgb Conc 32.8 g/dL (32-36); Mean Corpuscular Volume 84.8 fL (80-100); Monocytes # (auto) 0.26 K/uL (0.11-0.59); Monocytes % (auto) 4.1 %; Neutrophils # (auto) 5.05 K/uL (1.4-6.5); Neutrophils % (auto) 80.1 %; Platelet Count 156 K/uL (130-400); RDW Coefficient of Variation 16.2 % (11.5-14.5); RDW Standard Deviation 49.2 fL (36.4-46.3); Red Blood Count 3.81 M/uL (4.7-6.1)
[2020-10-11 17:22] LABS: Alanine Aminotransferase 24 U/L (12-78); Albumin Level 3.2 gm/dl (3.4-5.0); Aspartate Aminotransferase 33 U/L (15-37); BUN Creatinine Ratio 25.7 (10-20); Blood Urea Nitrogen 32 mg/dl (7-18); Calcium 9.2 mg/dl (8.5-10.1); Carbon Dioxide 21 mmol/L (21-32); Chloride 110 mmol/L (98-107); Est GFR (African American) 64.9 ml/min; Glucose 185 mg/dl (70-99); Potassium 3.7 mmol/L (3.5-5.1); Sodium 140 mmol/L (136-145)
[2020-10-11 17:25] LABS: Alkaline Phosphatase 90 U/L (45-117); Bilirubin,Total 0.3 mg/dl (0.2-1); Globulin 3.1 gm/dl (2.5-4.0); Total Protein 6.3 gm/dl (6.4-8.2)
[2020-10-11] MEDS ORDERED: PIPERACILLIN/TAZOBACTAM 4.5 GM/120 ML BAG IV ONE (17:42)
[2020-10-11] MEDS ORDERED: PIPERACILL/TAZOBAC CONSULT ACTIVE PRN ×2 (17:42→22:23)
[2020-10-11] MEDS ORDERED: ONDANSETRON INJ 2 MG/ML 2 ML VIAL IV STA (17:42)
[2020-10-11] MEDS ORDERED: ACETAMINOPHEN 65 ML IV ONE (17:42)
--- NOTE | 2020-10-11 17:50 | Emergency Department Note ---
History of Present Illness General Chief complaint: Dehydration Stated complaint: LUZ PEREZ BY KENZIE Time Seen by Provider: 10/11/20 17:31 Source: patient History of Present Illness Provider complaint: Vomiting Onset (ago): day(s) Location: abdomen Pain Consistency: + intermittent Maximum Pain Intensity: 4 Quality: + other (Vomiting cannot keep any food or medicine) Exacerbated By: + eating Associated symptoms: + cough, + headaches, + nausea/vomiting, + shortness of breath (Chronic unchanged) and + weakness; no chest pain and no fever/chills This is a 75-year-old male who presents with vomiting since starting antibiotics on Sunday morning of last week. The patient states that he started having a cough and some shortness of breath on Sunday of last week. He was seen by his splicer helper on and diagnosed with an aspiration pneumonia. Was placed on steroids as well as Augmentin. He started these on Sunday morning after which she started develop nausea and vomiting. The patient was seen here in the emergency department 2 days ago and discharged home with nausea medication. He states that he still is unable to eat or drink anything. He throws up whenever he tries to take his antibiotic or eat anything. He states he feels weak. He denies any chest pain or fever. He still has a persistent cough and some mild shortness of breath. He states that he has occasional abdominal pain and denies diarrhea. He does note that his urine output seemed decreased today. Home Medications Medication Instructions Recorded Confirmed Type Trulicity 1.5 mg SUBCUT WK 01/20/20 10/11/20 History albuterol sulfate [Ventolin HFA] 2 puff INHALATION Q4H PRN 01/20/20 10/11/20 History allopurinol 200 mg PO HS 01/20/20 10/11/20 History cholecalciferol (vitamin D3) 2,000 unit PO HS 01/20/20 10/11/20 History [Vitamin D3] finasteride 5 mg PO QAM 01/20/20 10/11/20 History nitroglycerin 0.4 mg SUBLINGUAL DIRECTED PRN 01/20/20 10/11/20 History rrzsedd-lyvzcuiva-whch 1 tab PO HS 02/05/20 10/11/20 History levetiracetam 1,000 mg tablet 1,000 mg PO BID 90 Days #180 tab 04/02/20 10/11/20 Rx topiramate 100 mg tablet 100 mg PO BID 30 Days #60 tab 05/17/20 10/11/20 Rx atorvastatin 40 mg PO HS 05/28/20 10/11/20 History carbidopa 25 mg-levodopa 100 mg 0.5 tab PO TID #90 tab 07/02/20 10/11/20 Rx tablet Lantus Solostar U-100 Insulin 20 unit SUBCUT BID 07/10/20 10/11/20 History gabapentin 600 mg PO BID 09/04/20 10/11/20 History insulin aspart U-100 [Novolog 0 unit SUBCUT ACHS 09/04/20 10/11/20 History Flexpen U-100 Insulin] warfarin See Rx Instructions .ROUTE .COMPLEX 09/04/20 10/11/20 History prednisone 1 mg tablet 5 mg PO DAILY tab 09/10/20 10/11/20 History amoxicillin 875 mg-potassium 1 tab PO Q12H #20 tab 10/07/20 10/11/20 Rx clavulanate 125 mg tablet prednisone 10 mg tablet See Rx Instructions PO DAILY #36 10/07/20 10/11/20 Rx tab aspirin [Adult Low Dose Aspirin] 81 mg PO QAM 10/09/20 10/11/20 History famotidine 20 mg PO BID #20 tab 10/09/20 10/11/20 Rx methotrexate sodium 15 mg PO WK 10/09/20 10/11/20 History ondansetron 4 mg PO Q6H PRN #14 tab 10/09/20 10/11/20 Rx umeclidinium-vilanterol [Anoro 1 inh INHALATION QAM 10/09/20 10/11/20 History Ellipta] Allergies Allergy/AdvReac Type Severity Reaction Status Date / Time Iodinated Contrast Media Allergy Severe Anaphylaxis Verified 10/11/20 18:06 shellfish derived Allergy Severe Anaphylaxis Verified 10/11/20 18:06 Tetanus Vaccines and Toxoid Allergy Unknown Unknown Verified 10/11/20 18:06 Past Med/Surg History Medical History Abnormal CT scan, chest Acute hyperglycemia Acute left-sided muscle weakness CAD (coronary artery disease) Chronic pulmonary aspiration Dehydration Diabetes Fall HLD (hyperlipidemia) Hypoxia Interstitial lung disease Interstitial lung disease due to connective tissue disease Lung nodule Neurogenic claudication Nocturnal hypoxia Palliative care encounter Polymyositis Polymyositis Prostate cancer s/p XRT Rheumatoid arthritis Rheumatoid arthritis Seizure-like activity Shortness of breath Stroke-like symptom 12/2019, w/ blurry vision and dysarthria. mild R sided wkness. attending outpatient physical therapy w/ good improvement in strength (5+/5 strength of all 4 extremities as of 05/28/20) Supratherapeutic INR Thoracic ascending aortic aneurysm s/p repair Weakness Surgical History H/O hernia repair History of aortic valve replacement mechanical History of cholecystectomy History of fusion of cervical spine History of gastric bypass lap band History of heart artery stent History of lung biopsy 2019 History of partial nephrectomy Family History Mother , age 87 of pulmonary issues Rheumatoid arthritis Father , in his mid 80s of a stroke Stroke Other Coronary heart disease Social History Smoking Status: Never smoker Second Hand Exposure: No; Hx Alcohol Use: No Hx Substance Use: No Preferred Language: Argentine Communication Ability: Effective Hearing Ability: Hard of Hearing Electronic Assembler Required: No Beliefs That Will Affect Care: None marital status: / Current Living Situation: Family Current Living Situation Comment: spends nights with son, has [employer] week from 12-29 current occupational status: retired 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 and A total of 10 systems reviewed and were otherwise negative Physical Exam Vital Signs Vital Signs - 24 hr 10/11/20 15:57 10/11/20 16:46 10/11/20 16:50 Temperature 36.4 C L Temperature Source Oral Pulse Rate 71 59 L 59 L Pulse Rate from SpO2 Sensor 61 58 L Respiratory Rate 18 17 22 Blood Pressure 123/75 134/68 Blood Pressure Mean 91 90 Pulse Oximetry 97 99 99 Oxygen Delivery Method Room Air Sepsis Recent Fever Within 48 Hours No Sepsis New/Unexplained Change in Mental Status N/A Sepsis Action Taken by Nursing No Action Required 10/11/20 17:00 10/11/20 17:01 10/11/20 17:10 Temperature Temperature Source Pulse Rate 59 L 57 L 70 Pulse Rate from SpO2 Sensor 55 L 57 L 60 Respiratory Rate 13 18 22 Blood Pressure 133/70 Blood Pressure Mean 91 Pulse Oximetry 99 99 94 Oxygen Delivery Method Sepsis Recent Fever Within 48 Hours Sepsis New/Unexplained Change in Mental Status Sepsis Action Taken by Nursing 10/11/20 17:15 10/11/20 17:20 10/11/20 17:30 Temperature Temperature Source Pulse Rate 59 L 70 55 L Pulse Rate from SpO2 Sensor 64 69 57 L Respiratory Rate 17 16 Blood Pressure 132/76 116/70 Blood Pressure Mean 94 85 Pulse Oximetry 93 94 94 Oxygen Delivery Method Sepsis Recent Fever Within 48 Hours Sepsis New/Unexplained Change in Mental Status Sepsis Action Taken by Nursing 10/11/20 17:31 10/11/20 17:40 10/11/20 17:46 Temperature Temperature Source Pulse Rate 66 74 71 Pulse Rate from SpO2 Sensor 77 62 54 L Respiratory Rate Blood Pressure 134/81 Blood Pressure Mean 98 Pulse Oximetry 94 96 92 Oxygen Delivery Method Sepsis Recent Fever Within 48 Hours Sepsis New/Unexplained Change in Mental Status Sepsis Action Taken by Nursing 10/11/20 17:50 10/11/20 18:00 10/11/20 18:01 Temperature Temperature Source Pulse Rate Pulse Rate from SpO2 Sensor 57 L 53 L 57 L Respiratory Rate Blood Pressure 144/85 H Blood Pressure Mean 104 Pulse Oximetry 94 97 96 Oxygen Delivery Method Sepsis Recent Fever Within 48 Hours Sepsis New/Unexplained Change in Mental Status Sepsis Action Taken by Nursing 10/11/20 18:10 10/11/20 18:16 10/11/20 18:20 Temperature Temperature Source Pulse Rate 58 L 67 Pulse Rate from SpO2 Sensor 52 L Respiratory Rate 23 24 Blood Pressure 140/103 H Blood Pressure Mean 115 Pulse Oximetry 97 Oxygen Delivery Method Sepsis Recent Fever Within 48 Hours Sepsis New/Unexplained Change in Mental Status Sepsis Action Taken by Nursing 10/11/20 18:30 10/11/20 18:31 10/11/20 18:40 Temperature Temperature Source Pulse Rate 79 53 L 76 Pulse Rate from SpO2 Sensor 61 55 L 70 Respiratory Rate 18 16 13 Blood Pressure 131/84 Blood Pressure Mean 99 Pulse Oximetry 74 L 96 95 Oxygen Delivery Method Sepsis Recent Fever Within 48 Hours Sepsis New/Unexplained Change in Mental Status Sepsis Action Taken by Nursing 10/11/20 18:46 10/11/20 18:50 10/11/20 19:00 Temperature Temperature Source Pulse Rate 52 L 55 L 56 L Pulse Rate from SpO2 Sensor 55 L 52 L 60 Respiratory Rate 19 16 18 Blood Pressure 120/64 117/80 Blood Pressure Mean 82 92 Pulse Oximetry 92 92 94 Oxygen Delivery Method Sepsis Recent Fever Within 48 Hours Sepsis New/Unexplained Change in Mental Status Sepsis Action Taken by Nursing 10/11/20 19:01 10/11/20 19:10 10/11/20 19:15 Temperature Temperature Source Pulse Rate 55 L 79 Pulse Rate from SpO2 Sensor 54 L 62 Respiratory Rate 15 22 19 Blood Pressure 109/57 L Blood Pressure Mean 74 Pulse Oximetry 94 87 L Oxygen Delivery Method Sepsis Recent Fever Within 48 Hours Sepsis New/Unexplained Change in Mental Status Sepsis Action Taken by Nursing 10/11/20 19:20 10/11/20 19:30 10/11/20 19:40 Temperature Temperature Source Pulse Rate 80 60 58 L Pulse Rate from SpO2 Sensor 72 69 58 L Respiratory Rate 17 21 18 Blood Pressure 107/71 Blood Pressure Mean 83 Pulse Oximetry 95 95 96 Oxygen Delivery Method Sepsis Recent Fever Within 48 Hours Sepsis New/Unexplained Change in Mental Status Sepsis Action Taken by Nursing 10/11/20 19:46 10/11/20 19:50 10/11/20 20:00 Temperature Temperature Source Pulse Rate 60 51 L 56 L Pulse Rate from SpO2 Sensor 52 L 62 Respiratory Rate 19 16 16 Blood Pressure 119/66 133/72 Blood Pressure Mean 83 92 Pulse Oximetry 97 98 Oxygen Delivery Method Sepsis Recent Fever Within 48 Hours Sepsis New/Unexplained Change in Mental Status Sepsis Action Taken by Nursing 10/11/20 20:01 10/11/20 20:10 10/11/20 20:16 Temperature Temperature Source Pulse Rate 59 L 63 66 Pulse Rate from SpO2 Sensor 59 L 56 L Respiratory Rate 21 22 18 Blood Pressure 129/60 Blood Pressure Mean 83 Pulse Oximetry 90 95 Oxygen Delivery Method Sepsis Recent Fever Within 48 Hours Sepsis New/Unexplained Change in Mental Status Sepsis Action Taken by Nursing 10/11/20 20:20 10/11/20 20:30 10/11/20 20:40 Temperature Temperature Source Pulse Rate 61 69 82 Pulse Rate from SpO2 Sensor 75 83 Respiratory Rate 22 19 19 Blood Pressure 115/84 Blood Pressure Mean 94 Pulse Oximetry 90 95 Oxygen Delivery Method Sepsis Recent Fever Within 48 Hours Sepsis New/Unexplained Change in Mental Status Sepsis Action Taken by Nursing 10/11/20 20:46 10/11/20 20:50 10/11/20 21:00 Temperature Temperature Source Pulse Rate 65 Pulse Rate from SpO2 Sensor 49 L 54 L Respiratory Rate 18 Blood Pressure 131/68 Blood Pressure Mean 89 Pulse Oximetry 97 96 Oxygen Delivery Method Sepsis Recent Fever Within 48 Hours Sepsis New/Unexplained Change in Mental Status Sepsis Action Taken by Nursing 10/11/20 21:01 10/11/20 21:10 10/11/20 21:15 Temperature Temperature Source Pulse Rate 70 63 67 Pulse Rate from SpO2 Sensor 76 59 L 60 Respiratory Rate 18 17 18 Blood Pressure 120/82 115/79 Blood Pressure Mean 94 91 Pulse Oximetry 93 93 92 Oxygen Delivery Method Sepsis Recent Fever Within 48 Hours Sepsis New/Unexplained Change in Mental Status Sepsis Action Taken by Nursing 10/11/20 21:20 10/11/20 21:30 10/11/20 21:31 Temperature Temperature Source Pulse Rate 66 58 L 65 Pulse Rate from SpO2 Sensor 59 L 58 L 53 L Respiratory Rate 18 18 15 Blood Pressure 127/71 Blood Pressure Mean 89 Pulse Oximetry 91 94 94 Oxygen Delivery Method Sepsis Recent Fever Within 48 Hours Sepsis New/Unexplained Change in Mental Status Sepsis Action Taken by Nursing 10/11/20 21:40 10/11/20 21:46 10/11/20 21:50 Temperature Temperature Source Pulse Rate 68 60 51 L Pulse Rate from SpO2 Sensor 68 60 47 L Respiratory Rate 18 18 20 Blood Pressure 139/84 Blood Pressure Mean 102 Pulse Oximetry 90 96 97 Oxygen Delivery Method Sepsis Recent Fever Within 48 Hours Sepsis New/Unexplained Change in Mental Status Sepsis Action Taken by Nursing Constitutional: Vital signs reviewed. Eyes: Pupils are equal round reactive to light. Conjunctiva are noninjected. ENT: Pharynx is clear without erythema or exudate. Mucous membranes are dryist. Neck supple without meningeal signs. Respiratory: Scattered rhonchi. Breath sounds are equal bilaterally. Cardiovascular: Regular rate and rhythm. No rubs or gallops. GI: Soft, nondistended and nontender. Bowel sounds are present. Musculoskeletal:No lower extremity tenderness. Integumentary: No cyanosis. or jaundice. Neurological: The patient is awake and alert. No focal deficits. Psychiatric: Normal affect. Not anxious appearing. Course Administered Medications Sodium Chloride (Nss) 500 mls @ 80 mls/hr IV .[id number] KIRSTEN Stop: 11/10/20 18:59 Last Admin: 10/11/20 18:58 Dose: 80 mls/hr Documented by: [id number] Miscellaneous Information (Piperacill/Tazobac Consult Active) 1 ea N/A UD PRN PRN Reason: Consult Stop: 11/10/20 17:41 Last Admin: 10/11/20 18:07 Dose: 1 ea Documented by: [id number] Discontinued Medications Acetaminophen (Acetaminophen 1000 Mg/100 Ml Iv) Confirm Administered Dose 1,000 mg IV .STK-MED ONE Stop: 10/11/20 18:03 Last Admin: 10/11/20 18:08 Dose: Not Given Documented by: [id number] Piperacillin Sod/Tazobactam Sod (Zosyn) 4.5 gm in 120 mls @ 240 mls/hr IV NOW ONE Stop: 10/11/20 18:11 Last Infusion: 10/11/20 18:43 Dose: 240 mls/hr Documented by: [id number] Admin: 10/11/20 18:07 Dose: 240 mls/hr Documented by: [id number] Acetaminophen (Ofirmev) 65 mls @ 200 mls/hr IV NOW ONE; Protocol Stop: 10/11/20 18:01 Last Infusion: 10/11/20 18:29 Dose: 200 mls/hr Documented by: [id number] Admin: 10/11/20 18:06 Dose: 200 mls/hr Documented by: [id number] Ondansetron HCl (Ondansetron Inj 2 Mg/Ml 2 Ml Vial) 4 mg IV NOW STA Stop: 10/11/20 17:43 Last Admin: 10/11/20 18:07 Dose: 4 mg Documented by: [id number] Medical Decision Making Differential Diagnosis Aspiration pneumonia, COVID-19, bowel obstruction, medication adverse effect, electrolyte abnormality, SHYANN, dehydration Medical Records Attestation: I reviewed the patient's medical records. I did perform a limited focused review of portions of the patient's old chart on the electronic medical record. The patient was seen here 2 days ago for the same symptoms he is here for today. He had a CT of the abdomen pelvis as well as the chest which did not show any obstructive process. He does have bilateral pneumonia on CT of his chest. He was discharged with Pepcid and Zofran. He had a negative Covid test. Home Medications Current Medication List: was personally reviewed by me Laboratory Data Attestation: I reviewed the patient's lab results. Result diagrams: 10/11/20 16:53 10/11/20 16:53 Lab Results 10/11/20 10/11/20 10/11/20 Range/Units 16:53 16:53 16:53 WBC 6.30 (4.8-10.8) K/uL RBC 3.81 L (4.7-6.1) M/uL Hgb 10.6 L (14.0-18.0) g/dL Hct 32.3 L (42-52) % MCV 84.8 (80-100) fL MCH 27.8 (25-34) pg MCHC 32.8 (32-36) g/dL RDW Std Deviation 49.2 H (36.4-46.3) fL RDW Coeff of Lianne 16.2 H (11.5-14.5) % Plt Count 156 (130-400) K/uL MPV 9.0 (7.4-10.4) fL Immature Gran % (Auto) 0.8 % Neut % (Auto) 80.1 % Lymph % (Auto) 14.8 % [place] % (Auto) 4.1 % Eos % (Auto) 0.2 % Baso % (Auto) 0.0 % Neut # (Auto) 5.05 (1.4-6.5) K/uL Lymph # (Auto) 0.93 L (1.2-3.4) K/uL [place] # (Auto) 0.26 (0.11-0.59) K/uL Eos # (Auto) 0.01 (0-0.5) K/uL Baso # (Auto) 0.00 (0-0.2) K/uL Immature Gran # (Auto) 0.05 H (0.00-0.02) K/uL PT 30.3 H (9.0-12.0) Seconds INR 3.3 H (0.9-1.1) APTT 34.7 H (21.0-31.0) Seconds PTT Ratio 1.3 Sodium 140 (136-145) mmol/L Potassium 3.7 (3.5-5.1) mmol/L Chloride 110 H (98-107) mmol/L Carbon Dioxide 21 (21-32) mmol/L Anion Gap 10.0 (3-11) BUN 32 H (7-18) mg/dl Creatinine 1.25 (0.6-1.4) mg/dl Est Cr Clr Drug Dosing Not Reportable Est GFR ( Amer) 64.9 ml/min Est GFR (Non-Af Amer) 56.0 ml/min BUN/Creatinine Ratio 25.7 H (10-20) Glucose 185 H (70-99) mg/dl Calcium 9.2 (8.5-10.1) mg/dl Total Bilirubin 0.3 (0.2-1) mg/dl AST 33 (15-37) U/L ALT 24 (12-78) U/L Alkaline Phosphatase 90 (45-117) U/L Total Protein 6.3 L (6.4-8.2) gm/dl Albumin 3.2 L (3.4-5.0) gm/dl Globulin 3.1 (2.5-4.0) gm/dl Albumin/Globulin Ratio 1.0 (0.9-2) Urine Color Urine Appearance (Clear) Urine pH (4.5-7.5) Ur Specific [place] (1.000-1.030) Urine Protein (Negative) Urine Glucose (UA) (Negative) Urine Ketones (Negative) Urine Blood (Negative) Urine Nitrite (Negative) Urine Bilirubin (Negative) Urine Urobilinogen (Negative) Ur Leukocyte Esterase (Negative) COVID-19 Eval Order SARS-CoV-2 (PCR) (Negative) 10/11/20 10/11/20 10/11/20 Range/Units 18:13 18:13 20:51 WBC (4.8-10.8) K/uL RBC (4.7-6.1) M/uL Hgb (14.0-18.0) g/dL Hct (42-52) % MCV (80-100) fL MCH (25-34) pg MCHC (32-36) g/dL RDW Std Deviation (36.4-46.3) fL RDW Coeff of Lianne (11.5-14.5) % Plt Count (130-400) K/uL MPV (7.4-10.4) fL Immature Gran % (Auto) % Neut % (Auto) % Lymph % (Auto) % [place] % (Auto) % Eos % (Auto) % Baso % (Auto) % Neut # (Auto) (1.4-6.5) K/uL Lymph # (Auto) (1.2-3.4) K/uL [place] # (Auto) (0.11-0.59) K/uL Eos # (Auto) (0-0.5) K/uL Baso # (Auto) (0-0.2) K/uL Immature Gran # (Auto) (0.00-0.02) K/uL PT (9.0-12.0) Seconds INR (0.9-1.1) APTT (21.0-31.0) Seconds PTT Ratio Sodium (136-145) mmol/L Potassium (3.5-5.1) mmol/L Chloride (98-107) mmol/L Carbon Dioxide (21-32) mmol/L Anion Gap (3-11) BUN (7-18) mg/dl Creatinine (0.6-1.4) mg/dl Est Cr Clr Drug Dosing Est GFR ( Amer) ml/min Est GFR (Non-Af Amer) ml/min BUN/Creatinine Ratio (10-20) Glucose (70-99) mg/dl Calcium (8.5-10.1) mg/dl Total Bilirubin (0.2-1) mg/dl AST (15-37) U/L ALT (12-78) U/L Alkaline Phosphatase (45-117) U/L Total Protein (6.4-8.2) gm/dl Albumin (3.4-5.0) gm/dl Globulin (2.5-4.0) gm/dl Albumin/Globulin Ratio (0.9-2) Urine Color Yellow Urine Appearance Clear (Clear) Urine pH 5.0 (4.5-7.5) Ur Specific [place] 1.016 (1.000-1.030) Urine Protein Negative (Negative) Urine Glucose (UA) Negative (Negative) Urine Ketones Negative (Negative) Urine Blood Negative (Negative) Urine Nitrite Negative (Negative) Urine Bilirubin Negative (Negative) Urine Urobilinogen Negative (Negative) Ur Leukocyte Esterase Negative (Negative) COVID-19 Eval Order Covid19 at [facility] SARS-CoV-2 (PCR) NEGATIVE (Negative) Imaging Data Radiologist's Impression: Chest X-Ray 10/11/20 17:45 XR chest 1V portable CLINICAL HISTORY: eval for pna COMPARISON STUDY: October 09, 2020 FINDINGS: No pneumothorax. No pleural effusion. Previously seen airspace opacities at the right base appear less conspicuous since prior study. Mixed reticular and nodular opacities are seen at the left lower lung region and might represent atelectasis or infiltrates. Suture line is again seen within left lower lung region. Cardiomediastinal silhouette is prominent and unchanged since prior study. Midline sternotomy wires and prosthetic cardiac valve are again seen. No significant pulmonary vascular congestion.. Osseous structures: Vertebral bodies are poorly seen. Orthopedic hardware is again seen at the anatomical region of the lower cervical spine. IMPRESSION: 1. Mild interval improvement of the right basilar atelectasis. 2. Reticular nodular opacities at the right mid to lower lung region might represent atelectasis or infiltrates, slightly worsened since prior. 3. Redemonstration of prominent cardiac silhouette. ACT 112: Negative or not required by law. The above report was generated using voice recognition software. It may contain grammatical, syntax or spelling errors. Electronically signed by: Cecilia Kyle DO 10/11/2020 7:43 PM ECG Data Attestation: I personally reviewed and interpreted this ECG as follows: Indication: + SOB/dyspnea and + weakness Rate (beats per minute): 59 Rhythm: + sinus bradycardia ECG Mikana: + Normal ECG ST segments: no ST elevation ECG Findings: + PACs MDM Narrative I did evaluate the patient as noted above. The patient is here with intractable nausea and vomiting. He is weak because he cannot eat or drink anything or take his medications for his pneumonia. He was seen here for the same 2 days ago and discharged with Pepcid and Zofran. These are not effective. IV access was established. I did treat him with Zofran IV. I did place an order for continuous cardiac monitoring. The monitor showed normal sinus rhythm at a rate of 62 bpm. I did order and personally review the patient's 12-lead EKG as described above. He has mild bradycardia without any acute ischemic symptoms. I did order and personally reviewed the images of the patient's chest x-ray as described above. I did order and review the patient's blood work as noted in the electronic medical record. His white count is 6.3. Hemoglobin is 10.6. Last hemoglobin was 10.8. Platelet count is 156. Electrolytes are unremarkable other than a chloride of 110. Creatinine is slightly elevated today at 1.25 compared to 2 days ago which was 1. I did discuss the test results with the patient. I did recommend hospitalization for further care and evaluation. I d id treat the patient with Zosyn 4.5 g IV. I did discuss case with the hospitalist and field nurse case manager. Impression & Plan Intractable vomiting, Acute dehydration, Aspiration pneumonia of both lungs, Chronic anemia Discharge Plan Visit Data Chief Complaint: Dehydration Stated Complaint: DEHY,REF BY DOC ED Provider: Yo Forbes Discharge Problem: Intractable vomiting, Acute dehydration, Aspiration pneumonia of both lungs, Chronic anemia Patient Disposition: Being Evaluated by Hospitalist Discharge Instructions Interventions: ED Discharge Assessment Last Done: 10/11/20 21:54 Forms Stand Alone Forms: My [facility]AN[facility] Prescriptions Prescriptions: No Action topiramate 100 mg tablet 100 mg PO BID 30 Days Qty: 60 RF: 5 carbidopa-levodopa 25-100 mg tablet 0.5 tab PO TID Qty: 90 RF: 2 levetiracetam 1,000 mg tablet 1,000 mg PO BID 90 Days Qty: 180 RF: 1 amoxicillin-pot clavulanate [Augmentin] 875-125 mg tablet 1 tab PO Q12H Qty: 20 RF: 0 prednisone 10 mg tablet See Rx Instructions PO DAILY Qty: 36 RF: 0 allopurinol 100 mg Tablet 200 mg PO HS RF: 0 nitroglycerin 0.4 mg Tablet, Sublingual 0.4 mg sublingual DIRECTED PRN (Reason: Chest Pain) RF: 0 albuterol sulfate [Ventolin HFA] 90 mcg/actuation Hfa Aerosol Inhaler 2 puff INHALATION Q4H PRN (Reason: Wheezing) RF: 0 finasteride 5 mg Tablet 5 mg PO QAM RF: 0 Trulicity 1.5 mg/0.5 mL Pen Injector 1.5 mg SUBCUT WK RF: 0 cholecalciferol (vitamin D3) [Vitamin D3] 50 mcg (2,000 unit) Capsule 2,000 unit PO HS RF: 0 sgzobrw-ugijahdte-huca 333-133-5 mg Tablet 1 tab PO HS RF: 0 atorvastatin 40 mg tablet 40 mg PO HS RF: 0 Lantus Solostar U-100 Insulin 100 unit/mL (3 mL) insulin pen 20 unit SUBCUT BID RF: 0 warfarin 7.5 mg tablet See Rx Instructions .ROUTE .COMPLEX RF: 0 insulin aspart U-100 [Novolog Flexpen U-100 Insulin] 100 unit/mL (3 mL) insulin pen 0 unit SUBCUT ACHS RF: 0 gabapentin 300 mg capsule 600 mg PO BID RF: 0 prednisone 1 mg tablet 5 mg PO DAILY RF: 0 aspirin [Adult Low Dose Aspirin] 81 mg tablet,delayed release (DR/EC) 81 mg PO QAM RF: 0 Anoro Ellipta 62.5-25 mcg/actuation blister with device 1 inh inhalation QAM RF: 0 methotrexate sodium 2.5 mg tablet 15 mg PO WK RF: 0 famotidine 20 mg tablet 20 mg PO BID Qty: 20 RF: 0 ondansetron 4 mg tablet,disintegrating 4 mg PO Q6H PRN (Reason: nausea and vomiting) Qty: 14 RF: 0 Referrals Referrals: Josh Gaspar MD [Primary Care Provider] - Discharge Problem: Intractable vomiting Qualifiers: Vomiting type: unspecified Nausea presence: with nausea Qualified Code(s): R11.2 - Nausea with vomiting, unspecified Aspiration pneumonia of both lungs Qualifiers: Aspiration pneumonia type: unspecified Lung location: unspecified part of lung Qualified Code(s): J69.0 - Pneumonitis due to inhalation of food and vomit
[2020-10-11] MEDS ORDERED: ACETAMINOPHEN 1000 MG/100 ML IV IV ONE (18:02)
[2020-10-11] MEDS ORDERED: SODIUM CHLORIDE 0.9% 500 ML IV SCH (19:00)
--- NOTE | 2020-10-11 19:44 | XRay Report ---
XR chest 1V portable CLINICAL HISTORY: eval for pna COMPARISON STUDY: October 09, 2020 FINDINGS: No pneumothorax. No pleural effusion. Previously seen airspace opacities at the right base appear less conspicuous since prior study. Mixed reticular and nodular opacities are seen at the left lower lung region and might represent atelectas is or infiltrates. Suture line is again seen within left lower lung region. Cardiomediastinal silhouette is prominent and unchanged since prior study. Midline sternotomy wires and prosthetic cardiac valve are again seen. No significant pulmonary vascular congestion.. Osseous structures: Vertebral bodies are poorly seen. Orthopedic hardware is again seen at the anato mical region of the lower cervical spine. IMPRESSION: 1. Mild interval improvement of the right basilar atelectasis. 2. Reticular nodular opacities at the right mid to lower lung region might represent atelectasis or infiltrates, slightly worsened since prior. 3. Redemonstration of prominent cardiac silhouette. ACT 112: Negative or not required by law. The above report was generated using voice recognition software. It may contain grammatical, syntax o r spelling errors. Electronically signed by: Cecilia Kyle DO 10/11/2020 7:43 PM
--- NOTE | 2020-10-11 20:36 | History & Physical Report ---
Date of Service October 11, 2020 Assessment & Plan (1) Aspiration pneumonia of both lungs: Aspiration pneumonia both lungs/ILD- Zosyn 4.5 g IV every 8 hours Duonebs every 4 hours while awake and every 2 hours when necessary. Methylprednisolone 40 mg IV every 8 hours, to replace oral prednisone Guaifenesin extended release 600 mg p.o. twice daily Nasal cannula oxygen, titrate to keep pulse ox 92 to 94% Mechanical soft/moist diet Present on Admission?: Yes (2) Intractable vomiting: Secondary to irritation from oral antibiotics Famotidine 20 mg IV every 12 hours Zofran 4 mg IV every 6 hours as needed Present on Admission?: Yes (3) Rheumatoid arthritis: Rheumatoid arthritis/polymyositis- Changing oral prednisone to methylprednisolone IV as noted above Present on Admission?: Yes (4) Parkinsonism: Continue carbidopa levodopa Present on Admission?: Yes (5) Neurogenic claudication due to lumbar spinal stenosis: Continue gabapentin Present on Admission?: Yes (6) Diabetes: Continue Lantus insulin 20 and subcu twice daily Placed on Accu-Cheks before meals and at bedtime with NovoLog coverage per scale Follow glucose closely while on IV Solu-Medrol Present on Admission?: Yes (7) HLD (hyperlipidemia): Continue atorvastatin 40 mg at bedtime Present on Admission?: Yes (8) CAD (coronary artery disease): CAD/PAF/hypertension/status post AVR- Continue aspirin and warfarin Add INR to ED labs Present on Admission?: Yes (9) PAF (paroxysmal atrial fibrillation): See above Present on Admission?: Yes (10) Interstitial lung disease: See above Present on Admission?: Yes (11) Polymyositis: See above Present on Admission?: Yes (12) Seizure-like activity: Continue Keppra and topiramate Present on Admission?: Yes (13) History of aortic valve replacement: See above Present on Admission?: Yes History of Present Illness Chief Complaint: The patient presents to the emergency department with complaint of stomach irritation, nausea vomiting since beginning antibiotics for respiratory infection a few days ago. Primary Care Provider: Josh Gaspar MD The patient is a 75-year-old male with past medical history including aspiration pneumonia, rheumatoid arthritis, chronic aspiration, TIAs, neurogenic claudication, parkinsonism, lumbar spinal stenosis with radiculopathy, diabetes mellitus, hyperlipidemia, history gastric bypass, CVA, history of AVR, CAD, ILD, polymyositis, diabetic peripheral neuropathy, PAF and chronic steroid use. He began with a cough about 1 week ago, was seen by his environmental research project manager last week and was diagnosed with aspiration pneumonia, started antibiotics, since that time his GI irritation with pulmonology vomiting and inability to hold antibiotics do wn. Allergies Allergy/AdvReac Type Severity Reaction Status Date / Time Iodinated Contrast Media Allergy Severe Anaphylaxis Verified 10/11/20 18:06 shellfish derived Allergy Severe Anaphylaxis Verified 10/11/20 18:06 Tetanus Vaccines and Toxoid Allergy Unknown Unknown Verified 10/11/20 18:06 Home Medications Medication Instructions Recorded Confirmed Type Trulicity 1.5 mg SUBCUT WK 01/20/20 10/11/20 History albuterol sulfate [Ventolin HFA] 2 puff INHALATION Q4H PRN 01/20/20 10/11/20 History allopurinol 200 mg PO HS 01/20/20 10/11/20 History cholecalciferol (vitamin D3) 2,000 unit PO HS 01/20/20 10/11/20 History [Vitamin D3] finasteride 5 mg PO QAM 01/20/20 10/11/20 History nitroglycerin 0.4 mg SUBLINGUAL DIRECTED PRN 01/20/20 10/11/20 History rvemcpl-dkynocsun-tfgw 1 tab PO HS 02/05/20 10/11/20 History levetiracetam 1,000 mg tablet 1,000 mg PO BID 90 Days #180 tab 04/02/20 10/11/20 Rx topiramate 100 mg tablet 100 mg PO BID 30 Days #60 tab 05/17/20 10/11/20 Rx atorvastatin 40 mg PO HS 05/28/20 10/11/20 History carbidopa 25 mg-levodopa 100 mg 0.5 tab PO TID #90 tab 07/02/20 10/11/20 Rx tablet Lantus Solostar U-100 Insulin 20 unit SUBCUT BID 07/10/20 10/11/20 History gabapentin 600 mg PO BID 09/04/20 10/11/20 History insulin aspart U-100 [Novolog 0 unit SUBCUT ACHS 09/04/20 10/11/20 History Flexpen U-100 Insulin] warfarin See Rx Instructions .ROUTE .COMPLEX 09/04/20 10/11/20 History prednisone 1 mg tablet 5 mg PO DAILY tab 09/10/20 10/11/20 History amoxicillin 875 mg-potassium 1 tab PO Q12H #20 tab 10/07/20 10/11/20 Rx clavulanate 125 mg tablet prednisone 10 mg tablet See Rx Instructions PO DAILY #36 10/07/20 10/11/20 Rx tab aspirin [Adult Low Dose Aspirin] 81 mg PO QAM 10/09/20 10/11/20 History famotidine 20 mg PO BID #20 tab 10/09/20 10/11/20 Rx methotrexate sodium 15 mg PO WK 10/09/20 10/11/20 History ondansetron 4 mg PO Q6H PRN #14 tab 10/09/20 10/11/20 Rx umeclidinium-vilanterol [Anoro 1 inh INHALATION QAM 10/09/20 10/11/20 History Ellipta] Past Med/Surg History Medical History Abnormal CT scan, chest Acute hyperglycemia Acute left-sided muscle weakness CAD (coronary artery disease) Chronic pulmonary aspiration Dehydration Diabetes Fall HLD (hyperlipidemia) Hypoxia Interstitial lung disease Interstitial lung disease due to connective tissue disease Lung nodule Neurogenic claudication Nocturnal hypoxia Palliative care encounter Polymyositis Polymyositis Prostate cancer s/p XRT Rheumatoid arthritis Rheumatoid arthritis Seizure-like activity Shortness of breath Stroke-like symptom 12/2019, w/ blurry vision and dysarthria. mild R sided wkness. attending outpatient physical therapy w/ good improvement in strength (5+/5 strength of all 4 extremities as of 05/28/20) Supratherapeutic INR Thoracic ascending aortic aneurysm s/p repair Weakness Surgical History H/O hernia repair History of aortic valve replacement mechanical History of cholecystectomy History of fusion of cervical spine History of gastric bypass lap band History of heart artery stent History of lung biopsy 2019 History of partial nephrectomy Family History Mother , age 87 of pulmonary issues Rheumatoid arthritis Father , in his mid 80s of a stroke Stroke Other Coronary heart disease Social History Smoking Status: Never smoker Second Hand Exposure: No; Hx Alcohol Use: No Hx Substance Use: No Preferred Language: Georgian Communication Ability: Effective Hearing Ability: Hard of Hearing [place] [employer] Required: No Beliefs That Will Affect Care: None marital status: / Current Living Situation: Alone Current Living Situation Comment: spends nights with son, has [employer] weekdays from - current occupational status: retired 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 Feels Safe at Home: Yes Safety Concerns: Feels Safe At This Time Assistive Devices: Hearing Aid - Bilateral Review of Systems Review of Systems: The patient denies chest pain, palpitations, lower extremity swelling, sore throat, fevers, chills, sweats, diarrhea , constipation, abdominal pain, pelvic pain, blood in urine or stool, dysuria, urinary frequency or urgency, lightheadedness, dizziness, headache, memory loss, loss of consciousness, rash, abnormal bruising or bleeding, imbalance, focal or generalized weakness, numbness or tingling in arms or legs, generalized arthralgias or myalgias, back or neck pain, or night sweats. The review of systems is otherwise negative other than for that already noted above, and at least 10 systems have been reviewed. Physical Exam Physical Exam: The patient is awake, alert and oriented 3, well developed and well nourished, normocephalic and atraumatic, lying in bed and in no acute distress. HEENT--PERRL, EOMI, mucous membranes and oropharynx dry. Neck--supple. No JVD. No bruits. Thyroid normal, trachea midline, no adenopathy. Heart--normal S1 and S2. No murmurs, rubs or gallops. Lungs--few coarse breath sounds b/l. no respiratory distress, no accessory muscle use. Abdomen--normal bowel sounds and soft. Nontender. Nondistended. Obese Extremities--no cyanosis or clubbing. No edema. Dermatologic--normal skin turgor, normal color, no abnormal lymph nodes, no rash. Neurologic--cranial nerves II through XII grossly intact. Rheumatologic--normal range of motion. Psychiatric--normal affect. Results & Data Results & Data ([facility]) Vital Signs (Past 12 Hours) Vital Signs Temp Pulse Resp BP Pulse Ox 06/14/21 19:30 60 21 107/71 95 10/11/20 19:20 80 17 95 10/11/20 19:15 79 19 109/57 L 10/11/20 19:10 22 87 L 10/11/20 19:01 55 L 15 94 10/11/20 19:00 56 L 18 117/80 94 10/11/20 18:50 55 L 16 92 10/11/20 18:46 52 L 19 120/64 92 10/11/20 18:40 76 13 95 10/11/20 18:31 53 L 16 131/84 96 10/11/20 18:30 79 18 74 L 10/11/20 18:20 67 24 10/11/20 18:16 58 L 23 140/103 H 10/11/20 18:10 97 10/11/20 18:01 96 10/11/20 18:00 144/85 H 97 10/11/20 17:50 94 10/11/20 17:46 71 134/81 92 10/11/20 17:40 74 96 10/11/20 17:31 66 94 10/11/20 17:30 55 L 116/70 94 10/11/20 17:20 70 16 94 10/11/20 17:15 59 L 17 132/76 93 10/11/20 17:10 70 22 94 10/11/20 17:01 57 L 18 133/70 99 10/11/20 17:00 59 L 13 99 10/11/20 16:50 59 L 22 99 10/11/20 16:46 59 L 17 134/68 99 10/11/20 15:57 97.5 F L 71 18 123/75 97 Laboratory Results Laboratory Results WBC 6.30 K/uL (4.8-10.8) 10/11/20 16:53 RBC 3.81 M/uL (4.7-6.1) L 10/11/20 16:53 Hgb 10.6 g/dL (14.0-18.0) L 10/11/20 16:53 Hct 32.3 % (42-52) L 10/11/20 16:53 MCV 84.8 fL (80-100) 10/11/20 16:53 MCH 27.8 pg (25-34) 10/11/20 16:53 MCHC 32.8 g/dL (32-36) 10/11/20 16:53 RDW Std Deviation 49.2 fL (36.4-46.3) H 10/11/20 16:53 RDW Coeff of Lianne 16.2 % (11.5-14.5) H 10/11/20 16:53 Plt Count 156 K/uL (130-400) 10/11/20 16:53 MPV 9.0 fL (7.4-10.4) 10/11/20 16:53 Immature Gran % (Auto) 0.8 % 10/11/20 16:53 Neut % (Auto) 80.1 % 10/11/20 16:53 Lymph % (Auto) 14.8 % 10/11/20 16:53 [place] % (Auto) 4.1 % 10/11/20 16:53 Eos % (Auto) 0.2 % 10/11/20 16:53 Baso % (Auto) 0.0 % 10/11/20 16:53 Neut # (Auto) 5.05 K/uL (1.4-6.5) 10/11/20 16:53 Lymph # (Auto) 0.93 K/uL (1.2-3.4) L 10/11/20 16:53 [place] # (Auto) 0.26 K/uL (0.11-0.59) 10/11/20 16:53 Eos # (Auto) 0.01 K/uL (0-0.5) 10/11/20 16:53 Baso # (Auto) 0.00 K/uL (0-0.2) 10/11/20 16:53 Immature Gran # (Auto) 0.05 K/uL (0.00-0.02) H 10/11/20 16:53 PT 30.3 Seconds (9.0-12.0) H 10/11/20 16:53 INR 3.3 (0.9-1.1) H 10/11/20 16:53 APTT 34.7 Seconds (21.0-31.0) H 10/11/20 16:53 PTT Ratio 1.3 10/11/20 16:53 Sodium 140 mmol/L (136-145) 10/11/20 16:53 Potassium 3.7 mmol/L (3.5-5.1) 10/11/20 16:53 Chloride 110 mmol/L (98-107) H 10/11/20 16:53 Carbon Dioxide 21 mmol/L (21-32) 10/11/20 16:53 Anion Gap 10.0 (3-11) 10/11/20 16:53 BUN 32 mg/dl (7-18) H 10/11/20 16:53 Creatinine 1.25 mg/dl (0.6-1.4) 10/11/20 16:53 Est Cr Clr Drug Dosing Not Reportable 10/11/20 16:53 Est GFR ( Amer) 64.9 ml/min 10/11/20 16:53 Est GFR (Non-Af Amer) 56.0 ml/min 10/11/20 16:53 BUN/Creatinine Ratio 25.7 (10-20) H 10/11/20 16:53 Glucose 185 mg/dl (70-99) H 10/11/20 16:53 POC Glucose 112 mg/dl (70-99) H 10/11/20 21:56 Calcium 9.2 mg/dl (8.5-10.1) 10/11/20 16:53 Total Bilirubin 0.3 mg/dl (0.2-1) 10/11/20 16:53 AST 33 U/L (15-37) 10/11/20 16:53 ALT 24 U/L (12-78) 10/11/20 16:53 Alkaline Phosphatase 90 U/L (45-117) 10/11/20 16:53 Total Protein 6.3 gm/dl (6.4-8.2) L 10/11/20 16:53 Albumin 3.2 gm/dl (3.4-5.0) L 10/11/20 16:53 Globulin 3.1 gm/dl (2.5-4.0) 10/11/20 16:53 Albumin/Globulin Ratio 1.0 (0.9-2) 10/11/20 16:53 Urine Color Yellow 10/11/20 20:51 Urine Appearance Clear (Clear) 10/11/20 20:51 Urine pH 5.0 (4.5-7.5) 10/11/20 20:51 Ur Specific [place] 1.016 (1.000-1.030) 10/11/20 20:51 Urine Protein Negative (Negative) 10/11/20 20:51 Urine Glucose (UA) Negative (Negative) 10/11/20 20:51 Urine Ketones Negative (Negative) 10/11/20 20:51 Urine Blood Negative (Negative) 10/11/20 20:51 Urine Nitrite Negative (Negative) 10/11/20 20:51 Urine Bilirubin Negative (Negative) 10/11/20 20:51 Urine Urobilinogen Negative (Negative) 10/11/20 20:51 Ur Leukocyte Esterase Negative (Negative) 10/11/20 20:51 COVID-19 Eval Order Covid19 at [facility] 10/11/20 18:13 SARS-CoV-2 (PCR) NEGATIVE (Negative) 10/11/20 18:13 Impressions Chest X-Ray 10/11/20 17:45 XR chest 1V portable CLINICAL HISTORY: eval for pna COMPARISON STUDY: October 09, 2020 FINDINGS: No pneumothorax. No pleural effusion. Previously seen airspace opacities at the right base appear less conspicuous since prior study. Mixed reticular and nodular opacities are seen at the left lower lung region and might represent atelectasis or infiltrates. Suture line is again seen within left lower lung region. Cardiomediastinal silhouette is prominent and unchanged since prior study. Midline sternotomy wires and prosthetic cardiac valve are again seen. No significant pulmonary vascular congestion.. Osseous structures: Vertebral bodies are poorly seen. Orthopedic hardware is again seen at the anatomical region of the lower cervical spine. IMPRESSION: 1. Mild interval improvement of the right basilar atelectasis. 2. Reticular nodular opacities at the right mid to lower lung region might represent atelectasis or infiltrates, slightly worsened since prior. 3. Redemonstration of prominent cardiac silhouette. ACT 112: Negative or not required by law. The above report was generated using voice recognition software. It may contain grammatical, syntax or spelling errors. Electronically signed by: Cecilia Kyle DO 10/11/2020 7:43 PM Code Status & VTE Plan Code Status Full code VTE Prophylaxis Plan VTE Prophylaxis will be ordered: Yes PG Care Time/CCT Total # of Minutes Spent Total Time Spent with Patient: Total time spent is greater than 50% in coordination of care (as documented) at patient's floor/unit and/or counseling patient: Coding Level of Care Code 09987 Initial Inpt Care Lvl 3 Diagnoses Aspiration pneumonia of both lungs J69.0 Aspiration pneumonia type: unspecified Lung location: unspecified part of lung Intractable vomiting R11.2 Nausea presence: with nausea Vomiting type: unspecified Rheumatoid arthritis M06.9 Parkinsonism G20 Parkinsonism type: unspecified Neurogenic claudication due to lumbar spinal stenosis M48.062 Diabetes E11.42; Z79.4 Diabetes mellitus type: type 2 Diabetes mellitus alf insulin use: with termite treater use Diabetes mellitus complication status: with neurologic complications Diabetes mellitus complication detail: with polyneuropathy HLD (hyperlipidemia) E78.2 Hyperlipidemia type: mixed hyperlipidemia CAD (coronary artery disease) I25.10 Coronary Disease-Associated Artery/Lesion type: [place] artery [place] vs. transplanted heart: [place] heart Associated angina: without angina PAF (paroxysmal atrial fibrillation) I48.0 Interstitial lung disease J84.9 Polymyositis M33.20 Seizure-like activity R56.9 History of aortic valve replacement Z95.2 (1) Aspiration pneumonia of both lungs Aspiration pneumonia type: unspecified Lung location: unspecified part of lung Qualified Code(s): J69.0 - Pneumonitis due to inhalation of food and vomit (2) Intractable vomiting Nausea presence: with nausea Vomiting type: unspecified Qualified Code(s): R11.2 - Nausea with vomiting, unspecified (3) Parkinsonism Parkinsonism type: unspecified Qualified Code(s): G20 - Parkinson's disease (4) Diabetes Diabetes mellitus type: type 2 Diabetes mellitus alf insulin use: with termite treater use Diabetes mellitus complication status: with neurologic complications Diabetes mellitus complication detail: with polyneuropathy Qualified Code(s): E11.42 - Type 2 diabetes mellitus with diabetic polyneuropathy; Z79.4 - exterminator termite (current) use of insulin (5) HLD (hyperlipidemia) Hyperlipidemia type: mixed hyperlipidemia Qualified Code(s): E78.2 - Mixed hyperlipidemia (6) CAD (coronary artery disease) Coronary Disease-Associated Artery/Lesion type: [place] artery [place] vs. transplanted heart: [place] heart Associated angina: without angina Qualified Code(s): I25.10 - Atherosclerotic heart disease of [place] coronary artery without angina pectoris
[2020-10-11 20:53] LABS: INR 3.3 (0.9-1.1); Partial Thromboplastin Ratio 1.3; Partial Thromboplastin Time 34.7 Seconds (21.0-31.0); Prothrombin Time 30.3 Seconds (9.0-12.0)
[2020-10-11 21:50] LABS: Appearance Urine Clear (Clear); Bilirubin Urine Negative (Negative); Blood Urine Negative (Negative); Color Urine Yellow; Glucose Urine UA Negative (Negative); Ketones Urine Negative (Negative); Leukocyte Esterase Urine Negative (Negative); Nitrite Urine Negative (Negative); Protein Urine Negative (Negative); Specific Gravity Urine 1.016 (1.000-1.030); Urobilinogen Urine Negative (Negative)
[2020-10-11] MEDS ORDERED: GLUCOSE 10 TABS/TUBE PO PRN (22:23)
[2020-10-11] MEDS ORDERED: NSS + 20MEQ KCL 20 MEQ/1,000 ML BAG IV SCH (22:23)
[2020-10-11] MEDS ORDERED: GLUCOSE 40% GEL 15 GM TUBE PO PRN (22:23)
[2020-10-11] MEDS ORDERED: NITROGLYCERIN SL 0.4 MG/TAB TAB SL PRN (22:23)
[2020-10-11] MEDS ORDERED: CARBOHYDRATES FOR HYPOGLYCEMIA PO PRN (22:23)
[2020-10-11] MEDS ORDERED: NON-FORMULARY MEDICATION (Calcium-Magnesium-Zinc 333-133-5 mg Tablet) PO SCH (22:23)
[2020-10-11] MEDS ORDERED: DEXTROSE 50% 50 ML SYRINGE IV PRN (22:23)
[2020-10-11] MEDS ORDERED: GLUCAGON FOR INJ 1 MG VIAL SQ PRN (22:23)
[2020-10-12] MEDS: INSULIN ASPART 100 UNITS/ML 3 ML PEN SC SCH ×5 (00:05→20:58)
[2020-10-12] MEDS: PIPERACILLIN/TAZOBACTAM 4.5 GM in DEXTROSE 5% 100 ML IV SCH ×2 (00:12→09:38)
[2020-10-12] MEDS: INSULIN GLARGINE SOLOSTAR 100 UNITS/ML 3 ML PEN SQ SCH ×3 (00:15→20:58)
[2020-10-12] MEDS: CARBIDOPA/LEVODOPA 25/100MG TAB PO SCH ×4 (00:17→20:56)
[2020-10-12] MEDS: FAMOTIDINE 20 MG TAB PO SCH ×3 (00:18→20:57)
[2020-10-12] MEDS: ATORVASTATIN 40 MG TAB PO SCH ×2 (00:18→20:57)
[2020-10-12] MEDS: TOPIRAMATE 100 MG TAB PO SCH ×3 (00:18→20:56)
[2020-10-12] MEDS: levETIRAcetam 500 MG TAB PO SCH ×3 (00:18→20:56)
[2020-10-12] MEDS: allopurinoL 100 MG TAB PO SCH ×2 (00:18→20:57)
[2020-10-12] MEDS: FINASTERIDE 5 MG TAB PO SCH ×2 (00:18→08:20)
[2020-10-12] MEDS: guaiFENesin 600 MG TABCR PO SCH ×3 (00:19→20:57)
[2020-10-12] MEDS: GABAPENTIN 300 MG CAP PO SCH ×3 (00:20→20:58)
[2020-10-12] MEDS: CHOLECALCIFEROL 1,000 UNITS 25 MCG TAB PO SCH ×2 (00:20→21:37)
[2020-10-12] MEDS: methylPREDNISolone 40 MG in SYRINGE 0 ML IV SCH ×3 (00:23→17:30)
[2020-10-12] MEDS: ACETAMINOPHEN 325 MG TAB PO PRN ×2 (05:14→19:52)
[2020-10-12] MEDS: ALBUT/IPRATROP 3MG/0.5MG NEB 3 ML VIAL NEB SCH ×4 (07:07→19:28)
[2020-10-12 07:52] LABS: INR 3.7 (0.9-1.1); Partial Thromboplastin Ratio 1.4; Partial Thromboplastin Time 37.5 Seconds (21.0-31.0); Prothrombin Time 33.9 Seconds (9.0-12.0)
--- NOTE | 2020-10-12 08:01 | Hospitalist Progress Note ---
Date of Service October 12, 2020 Assessment & Plan (1) Aspiration pneumonia of both lungs: Aspiration pneumonia both lungs history of interstitial lung disease Metabolic encephalopathy Continues on Zosyn 4.5 g IV every 8 hours Duonebs every 4 hours while awake and every 2 hours when necessary. Methylprednisolone 40 mg IV every 8 hours, taper to oral prednisone 10/13/2020 Guaifenesin extended release 600 mg p.o. twice daily Nasal cannula oxygen, titrate to keep pulse ox 92 to 94% Mechanical soft/moist diet (2) Intractable vomiting: Secondary to irritation from oral antibioticsresolved Famotidine 20 mg IV every 12 hours Zofran 4 mg IV every 6 hours as needed (3) Rheumatoid arthritis: Rheumatoid arthritis/polymyositis- Changing oral prednisone to methylprednisolone IV as noted above may have had an outpatient degree of adrenal crisis (4) Parkinsonism: Continue carbidopa levodopa (5) Neurogenic claudication due to lumbar spinal stenosis: Continue gabapentin (6) Diabetes: Continue Lantus insulin 20 and subcu twice daily Placed on Accu-Cheks before meals and at bedtime with NovoLog coverage per scale Follow glucose closely while on steroid (7) HLD (hyperlipidemia): Continue atorvastatin 40 mg at bedtime (8) CAD (coronary artery disease): CAD/PAF/hypertension/status post AVR- Continue aspirin and warfarin (9) PAF (paroxysmal atrial fibrillation): See above Anticoagulated with warfarin INR is elevated at 3.7 (10) Interstitial lung disease: See above (11) Polymyositis: See above (12) Seizure-like activity: Continue Keppra and topiramate (13) History of aortic valve replacement: See above Admission and Anticipated Discharge Date Admission Date: October 11, 2020 Subjective Patient reports progressive shortness of breath and coughing refractory to outpatient attempts at management with antibiotics and steroids. Patient now has a bit of a metabolic encephalopathy likely from a pneumonia present on admission. However he has had much improvement since he has been in the hospital for support and hydration Review of Systems Review of Systems: Mild distress and fatigue no headache, no visual changes no speech or swallowing issues no chest pain, pressure or palpitations Mild shortness of breath nonproductive cough no abdominal pain, has had resolution of nausea or vomiting, no complaints of constipation no dysuria, hematuria or frequency no focal joint pain or swelling Chronic mild daily back pain proved since previous surgery, no radicular pain no bruising, bleeding or rashes no focal signs of weakness or numbness or altered sensation no complaints of anxiety or depression.. Physical Exam Physical Exam: The patient appeared chronically ill and stated age Vital signs as documented. Head exam is normocephalic atraumatic Neck is without JVD, thyromegaly, or carotid bruits. Lungs are with rhonchi to the left base otherwise are clear Cardiac exam, Rhythm is regular.. Systolic murmur is heard Abdominal exam reveals normal bowel sounds, soft non tender, slightly doughy Extremities are trace edematous and both pedal pulses are present Neurologic exam is alert and oriented, however at times drifts off and has tangential thinking, no focal loss of strength or sensation Skin is without bruises or rashes Psychologically is with concerns for mild metabolic encephalopathy from infectious origin Results & Data Results & Data ([facility]) Vital Signs (Past 12 Hours) Vital Signs Temp Pulse Pulse Pulse Resp BP BP 10/12/20 07:10 55 L 18 10/12/20 07:00 54 L 10/12/20 04:23 97.9 F 65 18 118/69 10/12/20 00:00 71 10/11/20 23:00 97.7 F 65 18 150/70 H 10/11/20 21:50 51 L 20 10/11/20 21:46 60 18 139/84 10/11/20 21:40 68 18 10/11/20 21:31 65 15 10/11/20 21:30 58 L 18 127/71 10/11/20 21:20 66 18 10/11/20 21:15 67 18 115/79 10/11/20 21:10 63 17 10/11/20 21:01 70 18 120/82 10/11/20 21:00 65 18 10/11/20 20:50 10/11/20 20:46 131/68 10/11/20 20:40 82 19 10/11/20 20:30 69 19 115/84 10/11/20 20:20 61 22 10/11/20 20:16 66 18 129/60 10/11/20 20:10 63 22 10/11/20 20:01 59 L 21 Pulse Ox 10/12/20 07:10 94 10/12/20 07:00 10/12/20 04:23 95 10/12/20 00:00 10/11/20 23:00 99 10/11/20 21:50 97 10/11/20 21:46 96 10/11/20 21:40 90 10/11/20 21:31 94 10/11/20 21:30 94 10/11/20 21:20 91 10/11/20 21:15 92 10/11/20 21:10 93 10/11/20 21:01 93 10/11/20 21:00 10/11/20 20:50 96 10/11/20 20:46 97 10/11/20 20:40 95 10/11/20 20:30 90 10/11/20 20:20 10/11/20 20:16 10/11/20 20:10 95 10/11/20 20:01 90 PG Care Time/CCT Total # of Minutes Spent Total Time Spent with Patient: Total time spent is greater than 50% in coordination of care (as documented) at patient's floor/unit and/or counseling patient: Coding Level of Care Code 33064 Subseq Hosp Care Lvl 3 Diagnoses Aspiration pneumonia of both lungs J69.0 Aspiration pneumonia type: unspecified Lung location: unspecified part of lung Intractable vomiting R11.2 Nausea presence: with nausea Vomiting type: unspecified Rheumatoid arthritis M06.9 Parkinsonism G20 Parkinsonism type: unspecified Neurogenic claudication due to lumbar spinal stenosis M48.062 Diabetes E11.42; Z79.4 Diabetes mellitus complication detail: with polyneuropathy Diabetes mellitus complication status: with neurologic complications Diabetes mellitus longterm insulin use: with occupational rehabilitation aide use Diabetes mellitus type: type 2 HLD (hyperlipidemia) E78.2 Hyperlipidemia type: mixed hyperlipidemia CAD (coronary artery disease) I25.10 Associated angina: without angina Coronary Disease-Associated Artery/Lesion type: [place] artery [place] vs. transplanted heart: [place] heart PAF (paroxysmal atrial fibrillation) I48.0 Interstitial lung disease J84.9 Polymyositis M33.20 Seizure-like activity R56.9 History of aortic valve replacement Z95.2 (1) Diabetes Diabetes mellitus complication detail: with polyneuropathy Diabetes mellitus complication status: with neurologic complications Diabetes mellitus occupational rehabilitation aide insulin use: with occupational rehabilitation aide use Diabetes mellitus type: type 2 Qualified Code(s): E11.42 - Type 2 diabetes mellitus with diabetic polyneuropathy; Z79.4 - collaborative teacher (current) use of insulin (2) CAD (coronary artery disease) Associated angina: without angina Coronary Disease-Associated Artery/Lesion type: [place] artery [place] vs. transplanted heart: [place] heart Qualified Code(s): I25.10 - Atherosclerotic heart disease of [place] coronary artery w ithout angina pectoris (3) HLD (hyperlipidemia) Hyperlipidemia type: mixed hyperlipidemia Qualified Code(s): E78.2 - Mixed hyperlipidemia (4) Aspiration pneumonia of both lungs Aspiration pneumonia type: unspecified Lung location: unspecified part of lung Qualified Code(s): J69.0 - Pneumonitis due to inhalation of food and vomit (5) Parkinsonism Parkinsonism type: unspecified Qualified Code(s): G20 - Parkinson's disease (6) Intractable vomiting Nausea presence: with nausea Vomiting type: unspecified Qualified Code(s): R11.2 - Nausea with vomiting, unspecified
[2020-10-12 08:09] LABS: Estimated Average Glucose 166 mg/dl; Hemoglobin A1C 7.4 % (4.5-5.6)
[2020-10-12] MEDS: ASPIRIN 81 MG ECTAB PO SCH (08:21)
[2020-10-12] MEDS: UMECLIDINIUM/VILANTEROL 62.5/25MCG 7 PUFFS/INHALER INH SCH (08:22)
[2020-10-12] MEDS: levoFLOXacin/D5W 750 MG/150 ML BAG IV SCH (09:21)
[2020-10-12] MEDS ORDERED: POLYETHYLENE (MIRALAX) 17 GM PACK PO ONE (11:17)
[2020-10-12] MEDS: ONDANSETRON INJ 2 MG/ML 2 ML VIAL IV PRN ×2 (11:19→19:53)
--- NOTE | 2020-10-12 12:01 | Electrocardiogram Report ---
Test Reason : Blood Pressure : / mmHG Vent. Rate : 059 BPM Atrial Rate : 059 BPM P-R Int : 146 ms QRS Dur : 086 ms QT Int : 456 ms P-R-T Axes : 040 008 080 degrees QTc Int : 451 ms Sinus bradycardia with Premature atrial complexes Otherwise normal ECG When compared with ECG of 09-OCT-2020 11:13, No significant change was found Confirmed by Cody Soto ([id number]) on 10/12/2020 12:01:13 PM Referred By: Josh Gaspar Confirmed By:Wyatt Soto
[2020-10-12] MEDS: ALUMINUM/MAGNESIUM/SIMETH (MAALOX MAX) 30 ML UDC PO PRN (19:53)
[2020-10-13] MEDS: methylPREDNISolone 40 MG in SYRINGE 0 ML IV SCH (00:20)
[2020-10-13] MEDS: ACETAMINOPHEN 325 MG TAB PO PRN (06:04)
[2020-10-13 06:41] LABS: INR 2.7 (0.9-1.1); Prothrombin Time 25.1 Seconds (9.0-12.0)
[2020-10-13] MEDS ORDERED: POLYETHYLENE (MIRALAX) 17 GM PACK PO PRN (07:09)
[2020-10-13] MEDS: ALBUT/IPRATROP 3MG/0.5MG NEB 3 ML VIAL NEB SCH ×3 (07:15→19:24)
[2020-10-13] MEDS: UMECLIDINIUM/VILANTEROL 62.5/25MCG 7 PUFFS/INHALER INH SCH (08:12)
[2020-10-13] MEDS: FINASTERIDE 5 MG TAB PO SCH (08:12)
[2020-10-13] MEDS: ASPIRIN 81 MG ECTAB PO SCH (08:13)
[2020-10-13] MEDS: guaiFENesin 600 MG TABCR PO SCH ×2 (08:13→21:02)
[2020-10-13] MEDS: levETIRAcetam 500 MG TAB PO SCH ×2 (08:13→21:02)
[2020-10-13] MEDS: FAMOTIDINE 20 MG TAB PO SCH ×2 (08:13→21:01)
[2020-10-13] MEDS: levoFLOXacin/D5W 750 MG/150 ML BAG IV SCH (08:14)
[2020-10-13] MEDS: TOPIRAMATE 100 MG TAB PO SCH ×2 (08:14→21:02)
[2020-10-13] MEDS: CARBIDOPA/LEVODOPA 25/100MG TAB PO SCH ×3 (08:14→21:02)
[2020-10-13] MEDS: GABAPENTIN 300 MG CAP PO SCH ×2 (08:14→21:01)
[2020-10-13] MEDS: INSULIN ASPART 100 UNITS/ML 3 ML PEN SC SCH ×4 (08:15→20:51)
[2020-10-13] MEDS: INSULIN GLARGINE SOLOSTAR 100 UNITS/ML 3 ML PEN SQ SCH ×2 (08:17→21:00)
[2020-10-13] MEDS: ONDANSETRON INJ 2 MG/ML 2 ML VIAL IV PRN (08:37)
[2020-10-13] MEDS: ALUMINUM/MAGNESIUM/SIMETH (MAALOX MAX) 30 ML UDC PO PRN (08:37)
[2020-10-13] MEDS: predniSONE 20 MG TAB PO SCH (10:02)
[2020-10-13] MEDS: SENNA 8.6 MG TAB PO SCH (10:02)
[2020-10-13] MEDS ORDERED: WARFARIN SOD 5 MG TAB PO SCH (16:00)
--- NOTE | 2020-10-13 18:42 | Hospitalist Progress Note ---
Date of Service October 13, 2020 Assessment & Plan (1) Aspiration pneumonia of both lungs: Aspiration pneumonia both lungs history of interstitial lung disease Metabolic encephalopathy Continues on Zosyn 4.5 g IV every 8 hours Duonebs every 4 hours while awake and every 2 hours when necessary. pt refusiong oral prednisone 10/13/2020 due to concerns for GI upset Guaifenesin extended release 600 mg p.o. twice daily Nasal cannula oxygen, titrate to keep pulse ox 92 to 94% Mechanical soft/moist diet (2) Intractable vomiting: Secondary to irritation from oral antibioticsresolved, continues on zosyn Famotidine 20 mg IV every 12 hours Zofran 4 mg IV every 6 hours as needed (3) Rheumatoid arthritis: Rheumatoid arthritis/polymyositis- refusing oral prednisone will check am cortisol to evaluate adrenal axis (4) Parkinsonism: Continue carbidopa levodopa (5) Neurogenic claudication due to lumbar spinal stenosis: Continue gabapentin (6) Diabetes: Continue Lantus insulin 20 and subcu twice daily Placed on Accu-Cheks before meals and at bedtime with NovoLog coverage per scale Follow glucose closely while on steroid (7) HLD (hyperlipidemia): Continue atorvastatin 40 mg at bedtime (8) CAD (coronary artery disease): CAD/PAF/hypertension/status post AVR- Continue aspirin and warfarin (9) PAF (paroxysmal atrial fibrillation): See above Anticoagulated with warfarin INR is elevated at 3.7 (10) Interstitial lung disease: See above (11) Polymyositis: See above (12) Seizure-like activity: Continue Keppra and topiramate (13) History of aortic valve replacement: See above Admission and Anticipated Discharge Date Admission Date: October 11, 2020 Subjective Patient reports progressive shortness of breath and coughing refractory to outpatient attempts at management with antibiotics and steroids. However he has had much improvement since he has been in the hospital for support and hydration, now he has some other somatic complaints with c/o constipation and gi upset from steroids thus refusing steroids Review of Systems Review of Systems: Mild distress and fatigue no headache, no visual changes no speech or swallowing issues no chest pain, pressure or palpitations Mild shortness of breath nonproductive cough no abdominal pain, has had resolution of nausea or vomiting, now complaints of constipation no dysuria, hematuria or frequency no focal joint pain or swelling Chronic mild daily back pain proved since previous surgery, no radicular pain no bruising, bleeding or rashes no focal signs of weakness or numbness or altered sensation no complaints of anxiety or depression.. Physical Exam Physical Exam: The patient appeared chronically ill and stated age Vital signs as documented. Head exam is normocephalic atraumatic Neck is without JVD, thyromegaly, or carotid bruits. Lungs are clear with good airmovement Cardiac exam, Rhythm is regular.. Systolic murmur is heard Abdominal exam reveals normal bowel sounds, soft non tender, slightly doughy Extremities are trace edematous and both pedal pulses are present Neurologic exam is alert and oriented, however at times drifts off and has tangential thinking, no focal loss of strength or sensation Skin is without bruises or rashes Psychologically is with concerns for mild metabolic encephalopathy from infectious origin Results & Data Results & Data ([facility]) Vital Signs (Past 12 Hours) Vital Signs Temp Pulse Pulse Resp BP Pulse Ox 10/13/20 17:20 69 10/13/20 15:06 97.7 F 64 18 135/67 99 10/13/20 11:03 57 L 16 97 10/13/20 11:02 98.2 F 64 18 133/70 94 10/13/20 07:24 98.1 F 56 L 18 128/67 97 10/13/20 07:17 79 10/13/20 07:15 77 18 97 PG Care Time/CCT Total # of Minutes Spent Total Time Spent with Patient: Total time spent is greater than 50% in coordination of care (as documented) at patient's floor/unit and/or counseling patient: Coding Level of Care Code 44700 Subseq Hosp Care Lvl 3 Diagnoses Aspiration pneumonia of both lungs J69.0 Aspiration pneumonia type: unspecified Lung location: unspecified part of lung Intractable vomiting R11.2 Nausea presence: with nausea Vomiting type: unspecified Rheumatoid arthritis M06.9 Parkinsonism G20 Parkinsonism type: unspecified Neurogenic claudication due to lumbar spinal stenosis M48.062 Diabetes E11.42; Z79.4 Diabetes mellitus type: type 2 Diabetes mellitus retirement insulin use: with retirement use Diabetes mellitus complication status: with neurologic complications Diabetes mellitus complication detail: with polyneuropathy HLD (hyperlipidemia) E78.2 Hyperlipidemia type: mixed hyperlipidemia CAD (coronary artery disease) I25.10 Coronary Disease-Associated Artery/Lesion type: [place] artery [place] vs. transplanted heart: [place] heart Associated angina: without angina PAF (paroxysmal atrial fibrillation) I48.0 Interstitial lung disease J84.9 Polymyositis M33.20 Seizure-like activity R56.9 History of aortic valve replacement Z95.2 (1) Aspiration pneumonia of both lungs Aspiration pneumonia type: unspecified Lung location: unspecified part of lung Qualified Code(s): J69.0 - Pneumonitis due to inhalation of food and vomit (2) Intractable vomiting Nausea presence: with nausea Vomiting type: unspecified Qualified Code(s): R11.2 - Nausea with vomiting, unspecified (3) Parkinsonism Parkinsonism type: unspecified Qualified Code(s): G20 - Parkinson's disease (4) Diabetes Diabetes mellitus type: type 2 Diabetes mellitus retirement insulin use: with lobsterman use Diabetes mellitus complication status: with neurologic complications Diabetes mellitus complication detail: with polyneuropathy Qualified Code(s): E11.42 - Type 2 diabetes mellitus with diabetic polyneuropathy; Z79.4 - retirement (current) use of insulin (5) HLD (hyperlipidemia) Hyperlipidemia type: mixed hyperlipidemia Qualified Code(s): E78.2 - Mixed h yperlipidemia (6) CAD (coronary artery disease) Coronary Disease-Associated Artery/Lesion type: [place] artery [place] vs. transplanted heart: [place] heart Associated angina: without angina Qualified Code(s): I25.10 - Atherosclerotic heart disease of [place] coronary artery without angina pectoris
[2020-10-13] MEDS ORDERED: WARFARIN SOD 7.5 MG TAB PO SCH (21:00)
[2020-10-13] MEDS: allopurinoL 100 MG TAB PO SCH (21:01)
[2020-10-13] MEDS: CHOLECALCIFEROL 1,000 UNITS 25 MCG TAB PO SCH (21:01)
[2020-10-13] MEDS: ATORVASTATIN 40 MG TAB PO SCH (21:02)
[2020-10-14] MEDS: ALBUT/IPRATROP 3MG/0.5MG NEB 3 ML VIAL NEB SCH ×2 (07:11→19:30)
[2020-10-14 07:21] LABS: INR 1.8 (0.9-1.1); Prothrombin Time 17.8 Seconds (9.0-12.0)
[2020-10-14 07:34] LABS: BUN Creatinine Ratio 22.1 (10-20); Calcium 8.9 mg/dl (8.5-10.1); Creatinine Clr Calc Pharmacy 67.5 ml/min; Est GFR (Non-African American) 61.3 ml/min; Potassium 3.7 mmol/L (3.5-5.1)
[2020-10-14 08:00] LABS: Hematocrit (blood only) 31.8 % (42-52); Hemoglobin 10.1 g/dL (14.0-18.0); Mean Corpuscular Hemoglobin 26.9 pg (25-34); Mean Corpuscular Hgb Conc 31.8 g/dL (32-36); Mean Corpuscular Volume 84.8 fL (80-100); Mean Platelet Volume 9.6 fL (7.4-10.4); Platelet Count 151 K/uL (130-400); RDW Coefficient of Variation 15.8 % (11.5-14.5); RDW Standard Deviation 48.6 fL (36.4-46.3); Red Blood Count 3.75 M/uL (4.7-6.1); White Blood Count 3.79 K/uL (4.8-10.8)
[2020-10-14] MEDS: levoFLOXacin/D5W 750 MG/150 ML BAG IV SCH (08:21)
[2020-10-14] MEDS: GABAPENTIN 300 MG CAP PO SCH ×2 (08:21→20:04)
[2020-10-14] MEDS: FAMOTIDINE 20 MG TAB PO SCH ×2 (08:21→20:04)
[2020-10-14] MEDS: guaiFENesin 600 MG TABCR PO SCH ×2 (08:22→20:04)
[2020-10-14] MEDS: levETIRAcetam 500 MG TAB PO SCH ×2 (08:22→20:05)
[2020-10-14] MEDS: TOPIRAMATE 100 MG TAB PO SCH ×2 (08:22→20:05)
[2020-10-14] MEDS: CARBIDOPA/LEVODOPA 25/100MG TAB PO SCH ×3 (08:22→20:02)
[2020-10-14] MEDS: SENNA 8.6 MG TAB PO SCH (08:23)
[2020-10-14] MEDS: FINASTERIDE 5 MG TAB PO SCH (08:24)
[2020-10-14] MEDS: predniSONE 20 MG TAB PO SCH (08:24)
[2020-10-14] MEDS: ASPIRIN 81 MG ECTAB PO SCH (08:24)
[2020-10-14] MEDS: INSULIN ASPART 100 UNITS/ML 3 ML PEN SC SCH ×4 (08:25→20:11)
[2020-10-14] MEDS: INSULIN GLARGINE SOLOSTAR 100 UNITS/ML 3 ML PEN SQ SCH ×2 (08:25→20:12)
[2020-10-14] MEDS: UMECLIDINIUM/VILANTEROL 62.5/25MCG 7 PUFFS/INHALER INH SCH (08:25)
[2020-10-14] MEDS: ONDANSETRON INJ 2 MG/ML 2 ML VIAL IV PRN (12:38)
[2020-10-14] MEDS ORDERED: WARFARIN SOD 1 MG TAB PO STA (18:32)
--- NOTE | 2020-10-14 18:36 | Hospitalist Progress Note ---
Date of Service October 14, 2020 Assessment & Plan (1) Aspiration pneumonia of both lungs: Aspiration pneumonia both lungs history of interstitial lung disease Metabolic encephalopathy Continues on Zosyn 4.5 g IV every 8 hours Duonebs every 4 hours while awake and every 2 hours when necessary. pt refusiong oral prednisone 10/13/2020 due to concerns for GI upset, will try some dexamethasone Guaifenesin extended release 600 mg p.o. twice daily Nasal cannula oxygen, titrate to keep pulse ox 92 to 94% Mechanical soft/moist diet (2) Intractable vomiting: Secondary to irritation from oral antibioticsresolved, continues on zosyn Famotidine 20 mg IV every 12 hours Zofran 4 mg IV every 6 hours as needed (3) Rheumatoid arthritis: Rheumatoid arthritis/polymyositis- refusing oral prednisone will check am cortisol to evaluate adrenal axis (4) Parkinsonism: Continue carbidopa levodopa (5) Neurogenic claudication due to lumbar spinal stenosis: Continue gabapentin (6) Diabetes: Continue Lantus insulin 20 and subcu twice daily Placed on Accu-Cheks before meals and at bedtime with NovoLog coverage per scale Follow glucose closely while on steroid (7) HLD (hyperlipidemia): Continue atorvastatin 40 mg at bedtime (8) CAD (coronary artery disease): CAD/PAF/hypertension/status post AVR- Continue aspirin and warfarin (9) PAF (paroxysmal atrial fibrillation): See above Anticoagulated with warfarin INR is elevated at 3.7 (10) Interstitial lung disease: See above (11) Polymyositis: See above (12) Seizure-like activity: Continue Keppra and topiramate (13) History of aortic valve replacement: See above (14) Constipation: responded to sse, now on senna and miralax, will benefit from out pt colonoscopy Admission and Anticipated Discharge Date Admission Date: October 11, 2020 Subjective Patient reports continued shortness of breath and coughing previously refractory to outpatient attempts at management with antibiotics and steroids. However he has had much improvement since he has been in the hospital for support and hydration, now he has some other somatic complaints with c/o constipation and gi upset from steroids but todays feels a bit worse so is willing to try steroids again Review of Systems Review of Systems: Mild distress and fatigue no headache, no visual changes no speech or swallowing issues no chest pain, pressure or palpitations Mild shortness of breath nonproductive cough no abdominal pain, has had resolution of nausea or vomiting, now complaints of constipation no dysuria, hematuria or frequency no focal joint pain or swelling Chronic mild daily back pain proved since previous surgery, no radicular pain no bruising, bleeding or rashes no focal signs of weakness or numbness or altered sensation no complaints of anxiety or depression.. Physical Exam Physical Exam: The patient appeared chronically ill and stated age Vital signs as documented. Head exam is normocephalic atraumatic Neck is without JVD, thyromegaly, or carotid bruits. Lungs are coarse on the left side Cardiac exam, Rhythm is regular.. Systolic murmur is heard Abdominal exam reveals normal bowel sounds, soft non tender, slightly doughy Extremities are trace edematous and both pedal pulses are present Neurologic exam is alert and oriented, however at times drifts off and has tangential thinking, no focal loss of strength or sensation Skin is without bruises or rashes Psychologically is with concerns for mild metabolic encephalopathy from infectious origin Results & Data Results & Data ([facility]) Vital Signs (Past 12 Hours) Vital Signs Temp Pulse Pulse Resp BP Pulse Ox 10/14/20 15:21 97.9 F 60 18 117/69 93 10/14/20 15:00 65 10/14/20 11:23 98.1 F 78 18 121/73 97 10/14/20 09:42 62 10/14/20 07:11 66 18 92 10/14/20 06:51 97.9 F 53 L 18 107/61 95 PG Care Time/CCT Total # of Minutes Spent Total Time Spent with Patient: Total time spent is greater than 50% in coordination of care (as documented) at patient's floor/unit and/or counseling patient: Coding Level of Care Code 64777 Subseq Hosp Care Lvl 3 Diagnoses Aspiration pneumonia of both lungs J69.0 Aspiration pneumonia type: unspecified Lung location: unspecified part of lung Intractable vomiting R11.2 Nausea presence: with nausea Vomiting type: unspecified Rheumatoid arthritis M06.9 Parkinsonism G20 Parkinsonism type: unspecified Neurogenic claudication due to lumbar spinal stenosis M48.062 Diabetes E11.42; Z79.4 Diabetes mellitus type: type 2 Diabetes mellitus assisted insulin use: with oysterman use Diabetes mellitus complication status: with neurologic complications Diabetes mellitus complication detail: with polyneuropathy HLD (hyperlipidemia) E78.2 Hyperlipidemia type: mixed hyperlipidemia CAD (coronary artery disease) I25.10 Coronary Disease-Associated Artery/Lesion type: [place] artery [place] vs. transplanted heart: [place] heart Associated angina: without angina PAF (paroxysmal atrial fibrillation) I48.0 Interstitial lung disease J84.9 Polymyositis M33.20 Seizure-like activity R56.9 History of aortic valve replacement Z95.2 Constipation K59.00 (1) Aspiration pneumonia of both lungs Aspiration pneumonia type: unspecified Lung location: unspecified part of lung Qualified Code(s): J69.0 - Pneumonitis due to inhalation of food and vomit (2) Intractable vomiting Nausea presence: with nausea Vomiting type: unspecified Qualified Code(s): R11.2 - Nausea with vomiting, unspecified (3) Parkinsonism Parkinsonism type: unspecified Qualified Code(s): G20 - Parkinson's disease (4) Diabetes Diabetes mellitus type: type 2 Diabetes mellitus oysterman insulin use: with oysterman use Diabetes mellitus complication status: with neurologic complications Diabetes mellitus complication detail: with polyneuropathy Qualified Code(s): E11.42 - Type 2 diabetes mellitus with diabetic polyneuropathy; 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 transplanted heart: [place] heart Associated angina: without angina Qualified Code(s): I25.10 - Atherosclerotic heart disease of [place] coronary artery without angina pectoris
[2020-10-14] MEDS ORDERED: dexAMETHasone 6 MG in SYRINGE 0 ML IV SCH (19:00)
[2020-10-14] MEDS: WARFARIN SOD 6 MG TAB PO SCH (20:01)
[2020-10-14] MEDS: ATORVASTATIN 40 MG TAB PO SCH (20:02)
[2020-10-14] MEDS: allopurinoL 100 MG TAB PO SCH (20:02)
[2020-10-14] MEDS: CHOLECALCIFEROL 1,000 UNITS 25 MCG TAB PO SCH (20:03)
[2020-10-14] MEDS ORDERED: WARFARIN SOD 10 MG TAB PO SCH (21:00)
[2020-10-15] MEDS: ALBUT/IPRATROP 3MG/0.5MG NEB 3 ML VIAL NEB SCH ×3 (07:28→20:13)
[2020-10-15] MEDS: INSULIN ASPART 100 UNITS/ML 3 ML PEN SC SCH ×4 (08:47→21:16)
[2020-10-15] MEDS: UMECLIDINIUM/VILANTEROL 62.5/25MCG 7 PUFFS/INHALER INH SCH (08:48)
[2020-10-15] MEDS: levoFLOXacin/D5W 750 MG/150 ML BAG IV SCH (08:48)
[2020-10-15] MEDS: INSULIN GLARGINE SOLOSTAR 100 UNITS/ML 3 ML PEN SQ SCH ×2 (08:48→21:13)
[2020-10-15] MEDS: ASPIRIN 81 MG ECTAB PO SCH (08:49)
[2020-10-15] MEDS: TOPIRAMATE 100 MG TAB PO SCH ×2 (08:49→21:12)
[2020-10-15] MEDS: levETIRAcetam 500 MG TAB PO SCH ×2 (08:49→21:36)
[2020-10-15] MEDS: predniSONE 20 MG TAB PO SCH (08:49)
[2020-10-15] MEDS: SENNA 8.6 MG TAB PO SCH (08:49)
[2020-10-15] MEDS: guaiFENesin 600 MG TABCR PO SCH ×2 (08:50→21:09)
[2020-10-15] MEDS: GABAPENTIN 300 MG CAP PO SCH ×2 (08:50→21:08)
[2020-10-15] MEDS: FAMOTIDINE 20 MG TAB PO SCH ×2 (08:50→21:08)
[2020-10-15] MEDS: FINASTERIDE 5 MG TAB PO SCH (08:50)
[2020-10-15] MEDS: dexAMETHasone 1 MG TAB PO SCH (08:50)
[2020-10-15] MEDS: CARBIDOPA/LEVODOPA 25/100MG TAB PO SCH ×3 (08:50→21:07)
[2020-10-15 09:25] LABS: INR 1.4 (0.9-1.1); Prothrombin Time 14.1 Seconds (9.0-12.0)
[2020-10-15] MEDS: ACETAMINOPHEN 325 MG TAB PO PRN (11:57)
[2020-10-15] MEDS: ONDANSETRON INJ 2 MG/ML 2 ML VIAL IV PRN ×2 (11:58→20:52)
[2020-10-15] MEDS ORDERED: WARFARIN SOD 5 MG TAB PO SCH (16:00)
[2020-10-15] MEDS: WARFARIN SOD 6 MG TAB PO SCH (16:27)
--- NOTE | 2020-10-15 18:18 | Hospitalist Progress Note ---
Date of Service October 15, 2020 Assessment & Plan (1) Aspiration pneumonia of both lungs: Aspiration pneumonia both lungs history of interstitial lung disease Metabolic encephalopathy Continues on Zosyn 4.5 g IV every 8 hours Duonebs every 4 hours while awake and every 2 hours when necessary. pt refusiong oral prednisone 10/13/2020, converted to dexamethasone add carafate to help gi upset Guaifenesin extended release 600 mg p.o. twice daily Nasal cannula oxygen, titrate to keep pulse ox 92 to 94% Mechanical soft/moist diet (2) Intractable vomiting: Secondary to irritation from oral antibioticsresolved, continues on zosyn Famotidine 20 mg IV every 12 hours Zofran 4 mg IV every 6 hours as needed (3) Rheumatoid arthritis: Rheumatoid arthritis/polymyositis- refusing oral prednisone will check am cortisol to evaluate adrenal axis (4) Parkinsonism: Continue carbidopa levodopa (5) Neurogenic claudication due to lumbar spinal stenosis: Continue gabapentin (6) Diabetes: Continue Lantus insulin 20 and subcu twice daily Placed on Accu-Cheks before meals and at bedtime with NovoLog coverage per scale Follow glucose closely while on steroid (7) HLD (hyperlipidemia): Continue atorvastatin 40 mg at bedtime (8) CAD (coronary artery disease): CAD/PAF/hypertension/status post AVR- Continue aspirin and warfarin (9) PAF (paroxysmal atrial fibrillation): See above Anticoagulated with warfarin INR is elevated at 3.7 (10) Interstitial lung disease: See above (11) Polymyositis: See above (12) Seizure-like activity: Continue Keppra and topiramate (13) History of aortic valve replacement: See above (14) Constipation: responded to sse, now on senna and miralax, will benefit from out pt colonoscopy Admission and Anticipated Discharge Date Admission Date: October 11, 2020 Subjective Patient reports continued shortness of breath and coughing previously refractory to outpatient attempts at management with antibiotics and steroids. However he has had much improvement since he has been in the hospital for support and hydration, now he has relief of constipation with cathartics, and gi upset from steroids but he is willing to put up with steroids to help improve his lungs Review of Systems Review of Systems: Mild distress and fatigue no headache, no visual changes no speech or swallowing issues no chest pain, pressure or palpitations Mild shortness of breath nonproductive cough no abdominal pain, has had resolution of nausea or vomiting, now complaints of constipation no dysuria, hematuria or frequency no focal joint pain or swelling Chronic mild daily back pain proved since previous surgery, no radicular pain no bruising, bleeding or rashes no focal signs of weakness or numbness or altered sensation no complaints of anxiety or depression.. Physical Exam Physical Exam: The patient appeared chronically ill and stated age Vital signs as documented. Head exam is normocephalic atraumatic Neck is without JVD, thyromegaly, or carotid bruits. Lungs are coarse on the left side but improved from one day Cardiac exam, Rhythm is regular.. Systolic murmur is heard Abdominal exam reveals normal bowel sounds, soft non tender, slightly doughy Extremities are trace edematous and both pedal pulses are present Neurologic exam is alert and oriented, however at times drifts off and has tangential thinking, no focal loss of strength or sensation Skin is without bruises or rashes Psychologically is with concerns for mild metabolic encephalopathy from infectious origin Results & Data Results & Data ([facility]) Vital Signs (Past 12 Hours) Vital Signs Temp Pulse Pulse Resp BP Pulse Ox 10/15/20 16:00 98.1 F 84 18 118/67 98 10/15/20 15:03 63 18 93 10/15/20 12:00 98.2 F 61 18 106/64 93 10/15/20 07:29 60 16 94 10/15/20 07:18 57 L 10/15/20 06:54 97.9 F 58 L 18 109/66 96 PG Care Time/CCT Total # of Minutes Spent Total Time Spent with Patient: Total time spent is greater than 50% in coordination of care (as documented) at patient's floor/unit and/or counseling patient: Coding Level of Care Code 02356 Subseq Hosp Care Lvl 2 Diagnoses Aspiration pneumonia of both lungs J69.0 Aspiration pneumonia type: unspecified Lung location: unspecified part of lung Intractable vomiting R11.2 Nausea presence: with nausea Vomiting type: unspecified Rheumatoid arthritis M06.9 Parkinsonism G20 Parkinsonism type: unspecified Neurogenic claudication due to lumbar spinal stenosis M48.062 Diabetes E11.42; Z79.4 Diabetes mellitus type: type 2 Diabetes mellitus watermaster insulin use: with intermediate use Diabetes mellitus complication status: with neurologic complications Diabetes mellitus complication detail: with polyneuropathy HLD (hyperlipidemia) E78.2 Hyperlipidemia type: mixed hyperlipidemia CAD (coronary artery disease) I25.10 Coronary Disease-Associated Artery/Lesion type: [place] artery [place] vs. transplanted heart: [place] heart Associated angina: without angina PAF (paroxysmal atrial fibrillation) I48.0 Interstitial lung disease J84.9 Polymyositis M33.20 Seizure-like activity R56.9 History of aortic valve replacement Z95.2 Constipation K59.00 (1) Aspiration pneumonia of both lungs Aspiration pneumonia type: unspecified Lung location: unspecified part of lung Qualified Code(s): J69.0 - Pneumonitis due to inhalation of food and vomit (2) Intractable vomiting Nausea presence: with nausea Vomiting type: unspecified Qualified Code(s): R11.2 - Nausea with vomiting, unspecified (3) Parkinsonism Parkinsonism type: unspecified Qualified Code(s): G20 - Parkinson's disease (4) Diabetes Diabetes mellitus type: type 2 Diabetes mellitus watermaster insulin use: with watermaster use Diabetes mellitus complication status: with neurologic complications Diabetes mellitus complication detail: with polyneuropathy Qualified Code(s): E11.42 - Type 2 diabetes mellitus with diabetic polyneuropathy; 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 transplanted heart: [place] heart Associated angina: without angina Qualified Code(s): I25.10 - Atherosclerotic heart disease of [place] coronary artery without angina pectoris
[2020-10-15] MEDS: ALUMINUM/MAGNESIUM/SIMETH (MAALOX MAX) 30 ML UDC PO PRN (21:04)
[2020-10-15] MEDS: ATORVASTATIN 40 MG TAB PO SCH (21:06)
[2020-10-15] MEDS: allopurinoL 100 MG TAB PO SCH (21:06)
[2020-10-15] MEDS: CHOLECALCIFEROL 1,000 UNITS 25 MCG TAB PO SCH (21:08)
[2020-10-15] MEDS: SUCRALFATE 1 GM TAB PO SCH (21:11)
[2020-10-16] MEDS: ALBUT/IPRATROP 3MG/0.5MG NEB 3 ML VIAL NEB SCH (07:35)
[2020-10-16] MEDS: SUCRALFATE 1 GM TAB PO SCH ×2 (08:24→12:14)
[2020-10-16] MEDS: GABAPENTIN 300 MG CAP PO SCH (08:24)
[2020-10-16] MEDS: FAMOTIDINE 20 MG TAB PO SCH (08:24)
[2020-10-16] MEDS: levETIRAcetam 500 MG TAB PO SCH (08:25)
[2020-10-16] MEDS: guaiFENesin 600 MG TABCR PO SCH (08:25)
[2020-10-16] MEDS: FINASTERIDE 5 MG TAB PO SCH (08:25)
[2020-10-16] MEDS: dexAMETHasone 1 MG TAB PO SCH (08:25)
[2020-10-16] MEDS: SENNA 8.6 MG TAB PO SCH (08:25)
[2020-10-16] MEDS: predniSONE 20 MG TAB PO SCH (08:25)
[2020-10-16] MEDS: CARBIDOPA/LEVODOPA 25/100MG TAB PO SCH ×2 (08:25→13:52)
[2020-10-16] MEDS: ASPIRIN 81 MG ECTAB PO SCH (08:25)
[2020-10-16] MEDS: ONDANSETRON INJ 2 MG/ML 2 ML VIAL IV PRN (08:26)
[2020-10-16] MEDS: INSULIN GLARGINE SOLOSTAR 100 UNITS/ML 3 ML PEN SQ SCH (08:26)
[2020-10-16] MEDS: UMECLIDINIUM/VILANTEROL 62.5/25MCG 7 PUFFS/INHALER INH SCH (08:26)
[2020-10-16] MEDS: INSULIN ASPART 100 UNITS/ML 3 ML PEN SC SCH ×2 (08:27→12:13)
[2020-10-16] MEDS: levoFLOXacin/D5W 750 MG/150 ML BAG IV SCH (08:28)
[2020-10-16 08:45] LABS: Hematocrit (blood only) 33.5 % (42-52); Hemoglobin 10.7 g/dL (14.0-18.0); Mean Corpuscular Hemoglobin 26.5 pg (25-34); Mean Corpuscular Hgb Conc 31.9 g/dL (32-36); Mean Corpuscular Volume 82.9 fL (80-100); Mean Platelet Volume 9.3 fL (7.4-10.4); Platelet Count 163 K/uL (130-400); RDW Coefficient of Variation 15.9 % (11.5-14.5); RDW Standard Deviation 47.9 fL (36.4-46.3); Red Blood Count 4.04 M/uL (4.7-6.1); White Blood Count 4.93 K/uL (4.8-10.8)
[2020-10-16 09:09] LABS: Calcium 9.2 mg/dl (8.5-10.1); Creatinine Clr Calc Pharmacy 63.3 ml/min; Est GFR (African American) 66.8 ml/min; Est GFR (Non-African American) 57.6 ml/min; Magnesium 2.5 mg/dl (1.8-2.4); Potassium 3.5 mmol/L (3.5-5.1)
[2020-10-16] MEDS: TOPIRAMATE 100 MG TAB PO SCH (10:44)
--- NOTE | 2020-10-16 18:31 | Discharge Summary ---
Date of Service October 16, 2020 Admission HPI Per Admitting Provider The patient is a 75-year-old male with past medical history including aspiration pneumonia, rheumatoid arthritis, chronic aspiration, TIAs, neurogenic claudication, parkinsonism, lumbar spinal stenosis with radiculopathy, diabetes mellitus, hyperlipidemia, history gastric bypass, CVA, history of AVR, CAD, ILD, polymyositis, diabetic peripheral neuropathy, PAF and chronic steroid use. He began with a cough about 1 week ago, was seen by his wastewater technician last week and was diagnosed with aspiration pneumonia, started antibiotics, since that time his GI irritation with pulmonology vomiting and inability to hold antibiotics down. Principal Diagnosis aspiration pneumonia secondary to dysphagia constipation dyspepsia from steroids Discharge Exam The patient appeared well Vital signs as documented. Lungs are diminished at the bases Cardiac exam, Rhythm is regular.. No murmurs, rubs or gallops. Abdominal exam reveals normal bowel sounds, soft non tender, no masses Extremities are nonedematous and both pedal pulses are normal. Neurologic exam is alert and oriented, does have some left leg weakness Skin is without bruises or rashes Psychologically is without concerns for anxiety or depression. Discharge Data Allergies Allergy/AdvReac Type Severity Reaction Status Date / Time Iodinated Contrast Media Allergy Severe Anaphylaxis Verified 10/11/20 18:06 shellfish derived Allergy Severe Anaphylaxis Verified 10/11/20 18:06 Tetanus Vaccines and Toxoid Allergy Unknown Unknown Verified 10/11/20 18:06 Consultations 10/11/20 17:44 ED Decision to Admit Stat 10/16/20 13:27 Consult FRANCY[facility] train gateman Routine Hospital Course (1) Aspiration pneumonia of both lungs: Aspiration pneumonia both lungs history of interstitial lung disease Metabolic encephalopathy resolved home on clinda Duonebs every 4 hours while awake and every 2 hours when necessary. pt refusing oral prednisone 10/13/2020, converted to dexamethasone add carafate to help gi upset for 5 addional days Guaifenesin extended release 600 mg p.o. twice daily Mechanical soft/moist diet (2) Intractable vomiting: resolved (3) Rheumatoid arthritis: Rheumatoid arthritis/polymyositis- recommend follow up with supervisor production managing (4) Parkinsonism: Continue carbidopa levodopa (5) Neurogenic claudication due to lumbar spinal stenosis: Continue gabapentin (6) Diabetes: return to home regimen (7) HLD (hyperlipidemia): Continue atorvastatin 40 mg at bedtime (8) CAD (coronary artery disease): CAD/PAF/hypertension/status post AVR- Continue aspirin and warfarin (9) PAF (paroxysmal atrial fibrillation): See above Anticoagulated with warfarin INR is elevated at 3.7 (10) Interstitial lung disease: See above (11) Polymyositis: See above (12) Seizure-like activity: Continue Keppra and topiramate (13) History of aortic valve replacement: See above (14) Constipation: responded to sse, now on senna and miralax, will benefit from out pt colonoscopy Total Time Total Time Spent Total Time Spent (In Minutes): It required greater than 30 minutes to prepare this patient for discharge Discharge Plan Discharge Items Patient Disposition: Home - Self-Care Reason For Visit: Aspiration Pneumonia Discharge Diagnosis: aspiration pneumonia constipation upset stomach from steroids Activity: Resume your previous activity Non-emergency contact: Primary Care Provider and [facility] Pricing Consultant Call non-emergency contact if: your symptoms worsen and you have a fever Follow-up/Referrals: Josh Gaspar MD [Primary Care Provider] - (Patient will call and set up follow-up discharge follow-up appointment within 7-10 days.) Diet: Carb Consistent or DM2 Diet Texture: Dental soft (bite-sized) Addtl Attending Provider Instructions: please complete all of your antibiotics take additional 5 days of steroids and stomach medicine take your laxatives unless you begin to have more that 2 bowel movements a day if so skip the next day and reduce your doses by half please contact Dr Gaspar for a follow up appointment and see if he can also assist you in scheduling an out pt colonoscopy after you are done with your dexamethasone you may return to your usual home prednisone dose Pending Studies at Discharge: No Stand-Alone Forms: My [employer], Smoking Cessation Medications and DC Order Prescriptions: New sennosides [Senokot] 8.6 mg Tablet 17.2 mg PO QAM Qty: 60 RF: 3 sucralfate 1 gram Tablet 1 g PO QID Qty: 20 RF: 0 dexamethasone 1 mg Tablet 2 mg PO DAILY Qty: 5 RF: 0 guaifenesin [Mucinex] 600 mg Tablet Extended Release 12hr 600 mg PO Q12 Qty: 10 RF: 0 clindamycin HCl 300 mg capsule 300 mg PO BID 7 Days Qty: 14 RF: 0 Continued topiramate 100 mg tablet 100 mg PO BID 30 Days Qty: 60 RF: 5 carbidopa-levodopa 25-100 mg tablet 0.5 tab PO TID Qty: 90 RF: 2 levetiracetam 1,000 mg tablet 1,000 mg PO BID 90 Days Qty: 180 RF: 1 allopurinol 100 mg Tablet 200 mg PO HS RF: 0 nitroglycerin 0.4 mg Tablet, Sublingual 0.4 mg sublingual DIRECTED PRN (Reason: Chest Pain) RF: 0 albuterol sulfate [Ventolin HFA] 90 mcg/actuation Hfa Aerosol Inhaler 2 puff INHALATION Q4H PRN (Reason: Wheezing) RF: 0 finasteride 5 mg Tablet 5 mg PO QAM RF: 0 Trulicity 1.5 mg/0.5 mL Pen Injector 1.5 mg SUBCUT WK RF: 0 cholecalciferol (vitamin D3) [Vitamin D3] 50 mcg (2,000 unit) Capsule 2,000 unit PO HS RF: 0 azucboz-xtkvzizgs-bzam 333-133-5 mg Tablet 1 tab PO HS RF: 0 atorvastatin 40 mg tablet 40 mg PO HS RF: 0 Lantus Solostar U-100 Insulin 100 unit/mL (3 mL) insulin pen 20 unit SUBCUT BID RF: 0 warfarin 7.5 mg tablet See Rx Instructions .ROUTE .COMPLEX RF: 0 insulin aspart U-100 [Novolog Flexpen U-100 Insulin] 100 unit/mL (3 mL) insulin pen 0 unit SUBCUT ACHS RF: 0 gabapentin 300 mg capsule 600 mg PO BID RF: 0 prednisone 1 mg tablet 5 mg PO DAILY RF: 0 aspirin [Adult Low Dose Aspirin] 81 mg tablet,delayed release (DR/EC) 81 mg PO QAM RF: 0 Anoro Ellipta 62.5-25 mcg/actuation blister with device 1 inh inhalation QAM RF: 0 methotrexate sodium 2.5 mg tablet 15 mg PO WK RF: 0 famotidine 20 mg tablet 20 mg PO BID Qty: 20 RF: 0 ondansetron 4 mg tablet,disintegrating 4 mg PO Q6H PRN (Reason: nausea and vomiting) Qty: 14 RF: 0 Discontinued amoxicillin-pot clavulanate [Augmentin] 875-125 mg tablet 1 tab PO Q12H Qty: 20 RF: 0 prednisone 10 mg tablet See Rx Instructions PO DAILY Qty: 36 RF: 0 Discharge Orders: Discharge Order (Routine); Ordered 10/16/20 Ordered By: Yo Sen/Other Patient Handouts: Managing Type 2 Diabetes, A1C Admission Data Admit Date/Time: 10/11/20 20:35 Attending Provider: Yo Rosales Admit Provider: Shayan Mims Primary Care Provider: Josh Gaspar Other Providers: Toni Kelly Other Interventions: Discharge Summary Assessment (RN) Last Done: 10/16/20 13:29 Coding Level of Care Code D/C Day Management >30 mins Diagnoses Aspiration pneumonia of both lungs J69.0 Aspiration pneumonia type: unspecified Lung location: unspecified part of lung Intractable vomiting R11.2 Nausea presence: with nausea Vomiting type: unspecified Rheumatoid arthritis M06.9 Parkinsonism G20 Parkinsonism type: unspecified Neurogenic claudication due to lumbar spinal stenosis M48.062 Diabetes E11.42; Z79.4 Diabetes mellitus type: type 2 Diabetes mellitus group home insulin use: with group home use Diabetes mellitus complication status: with neurologic complications Diabetes mellitus complication detail: with polyneuropathy HLD (hyperlipidemia) E78.2 Hyperlipidemia type: mixed hyperlipidemia CAD (coronary artery disease) I25.10 Coronary Disease-Associated Artery/Lesion type: [place] artery [place] vs. transplanted heart: [place] heart Associated angina: without angina PAF (paroxysmal atrial fibrillation) I48.0 Interstitial lung disease J84.9 Polymyositis M33.20 Seizure-like activity R56.9 History of aortic valve replacement Z95.2 Constipation K59.00
== END 2020-10-16 14:14 | disposition home or self-care (01) | DRG 177 ==
LOC: ED 15:25 → 2N 20:35 → SUATTDRO 20:35 → 2N 21:54

== ENCOUNTER 2020-12-07 18:57 | Observation (INO) ==
--- NOTE | 2020-12-07 19:07 | Emergency Department Note ---
History of Present Illness General Chief Complaint: Fall Time Seen by Provider: 12/07/20 19:05 Source: patient Mode of arrival: EMS History of Present Illness Provider complaint: fall and head injury Onset (ago): minute(s) Fall from: standing Fall witnessed: yes, by family Place fall occurred: home Loss of consciousness: yes Length of LOC: minutes(s) Prolonged down time: no Symptoms prior to fall: none Treatments prior to arrival: + none Context: + history of frequent falls Location of injury: + head and + chest Location of injury - extremities: Left: forearm Severity: mild Patient did present from home after a fall while the patient was washing the dishes. EMS arrived and in route the patient did have an episode of un responsiveness for several minutes. BSG was checked and was in 300s. The patient's vitals are stable and the patient is maintaining his airway. Upon presentation the patient is easily arousable and does follow basic commands. Patient does complain of right-sided chest wall pain and left arm pain. Home Medications Medication Instructions Recorded Confirmed Type albuterol sulfate 90 mcg/actuation 2 puff INHALATION Q4H PRN 01/20/20 12/07/20 History aerosol inhaler (Ventolin HFA) allopurinol 100 mg tablet 100 mg PO HS 01/20/20 12/07/20 History cholecalciferol (vitamin D3) 50 2,000 unit PO HS 01/20/20 12/07/20 History mcg (2,000 unit) capsule (Vitamin D3) dulaglutide 1.5 mg/0.5 mL 1.5 mg SUBCUT WK 01/20/20 12/07/20 History subcutaneous pen injector (Trulicity) nitroglycerin 0.4 mg sublingual 0.4 mg SUBLINGUAL DIRECTED PRN 01/20/20 12/07/20 History tablet xiyycko-rithxukur-sagw 333 mg-133 1 tab PO HS 02/05/20 12/07/20 History mg-5 mg tablet topiramate 100 mg tablet 100 mg PO BID 30 Days #60 tab 05/17/20 12/07/20 Rx atorvastatin 40 mg tablet 40 mg PO HS 05/28/20 12/07/20 History carbidopa 25 mg-levodopa 100 mg 0.5 tab PO TID #90 tab 07/02/20 12/07/20 Rx tablet insulin glargine 100 unit/mL (3 20 unit SUBCUT BID 07/10/20 12/07/20 History mL) subcutaneous pen (Lantus Solostar U-100 Insulin) gabapentin 300 mg capsule 600 mg PO BID 09/04/20 12/07/20 History insulin aspart U-100 100 unit/mL 0 unit SUBCUT ACHS 09/04/20 12/07/20 History (3 mL) subcutaneous pen (Novolog Flexpen U-100 Insulin aspart) aspirin 81 mg tablet,delayed 81 mg PO QAM 10/09/20 12/07/20 History release (Adult Low Dose Aspirin) famotidine 20 mg tablet 20 mg PO BID #20 tab 10/09/20 12/07/20 Rx methotrexate sodium 2.5 mg tablet 15 mg PO WK 10/09/20 12/07/20 History ondansetron 4 mg disintegrating 4 mg PO Q6H PRN #14 tab 10/09/20 12/07/20 Rx tablet umeclidinium 62.5 mcg-vilanterol 1 inh INHALATION QAM 10/09/20 12/07/20 History 25 mcg/actuation powdr for inhalation (Anoro Ellipta) guaifenesin 600 mg tablet, 600 mg PO Q12 #10 tab 10/16/20 12/07/20 Rx extended release 12 hr (Mucinex) sucralfate 1 gram tablet 1 g PO QID #20 tab 10/16/20 12/07/20 Rx sennosides 8.6 mg tablet (Senokot) 8.6 mg PO QAM 10/19/20 12/07/20 History docusate sodium 100 mg capsule 100 mg PO BID #60 cap 11/11/20 12/07/20 Rx (Colace) oxycodone 5 mg tablet 5 mg PO Q6H PRN #12 tab 11/11/20 12/07/20 Rx torsemide 20 mg tablet 20 mg PO DAILY #30 tab 11/24/20 12/07/20 Rx levetiracetam 1,000 mg tablet 1,000 mg PO BID 90 Days #180 tab 11/30/20 12/07/20 Rx furosemide 20 mg tablet 20 mg PO DAILY 12/07/20 12/07/20 History omeprazole 40 mg capsule,delayed 40 mg PO BID 12/07/20 12/07/20 History release prednisone 5 mg tablet 10 mg PO DAILY 12/07/20 12/07/20 History spironolactone 25 mg tablet 25 mg PO DAILY 12/07/20 12/07/20 History warfarin 7.5 mg tablet 7.5 mg PO DAILY 12/07/20 12/07/20 History Allergies Allergy/AdvReac Type Severity Reaction Status Date / Time Iodinated Contrast Media Allergy Severe Anaphylaxis Verified 12/07/20 20:10 shellfish derived Allergy Severe Anaphylaxis Verified 12/07/20 20:10 tamsulosin [From Flomax] Allergy Intermediate Itching Unverified 12/07/20 20:10 Tetanus Vaccines and Toxoid Allergy Unknown Unknown Verified 12/07/20 20:10 Past Med/Surg History Medical History Abnormal CT scan, chest Acute hyperglycemia Acute left-sided muscle weakness CAD (coronary artery disease) Chronic pulmonary aspiration Dehydration Diabetes Fall HLD (hyperlipidemia) Hypoxia Interstitial lung disease Interstitial lung disease due to connective tissue disease Lung nodule Neurogenic claudication Nocturnal hypoxia Palliative care encounter Polymyositis Polymyositis Prostate cancer s/p XRT Rheumatoid arthritis Rheumatoid arthritis Seizure-like activity Shortness of breath Stroke-like symptom 12/2019, w/ blurry vision and dysarthria. mild R sided wkness. attending outpatient physical therapy w/ good improvement in strength (5+/5 strength of all 4 extremities as of 05/28/20) Supratherapeutic INR Thoracic ascending aortic aneurysm s/p repair Weakness Surgical History H/O hernia repair History of aortic valve replacement mechanical History of cholecystectomy History of fusion of cervical spine History of gastric bypass lap band History of heart artery stent History of lung biopsy 2019 History of partial nephrectomy Family History Mother , age 87 of pulmonary issues Rheumatoid arthritis Father , in his mid 80s of a stroke Stroke Other Coronary heart disease Social History Smoking Status: Unknown if ever smoked Second Hand Exposure: No; Hx Alcohol Use: No Hx Substance Use: No Preferred Language: Turkmen Communication Ability: Effective Hearing Ability: Hard of Hearing [facility] Required: No Beliefs That Will Affect Care: None marital status: / Current Living Situation: Alone Current Living Situation Comment: spends nights with son, has [employer] weekdays from 12-29 current occupational status: retired 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 and A total of 10 systems reviewed and were otherwise negative Physical Exam Vital Signs Vital Signs - 24 hr 12/07/20 19:06 12/07/20 19:08 12/07/20 19:15 Temperature 36.9 C Temperature Source Oral Pulse Rate 70 73 Pulse Rate from SpO2 Sensor 74 Respiratory Rate 17 17 Blood Pressure 141/97 H 128/71 Blood Pressure Mean 111 90 Pulse Oximetry 97 97 96 Oxygen Delivery Method Room Air Room Air Room Air Sepsis Recent Fever Within 48 Hours No Sepsis New/Unexplained Change in Mental Status Yes Sepsis Action Taken by Nursing No Action Required 12/07/20 19:45 12/07/20 20:00 12/07/20 20:15 Temperature Temperature Source Pulse Rate 59 L 62 67 Pulse Rate from SpO2 Sensor 60 64 66 Respiratory Rate 23 19 23 Blood Pressure 135/61 124/83 142/69 H Blood Pressure Mean 85 96 93 Pulse Oximetry 97 98 94 Oxygen Delivery Method Room Air Room Air Room Air Sepsis Recent Fever Within 48 Hours Sepsis New/Unexplained Change in Mental Status Sepsis Action Taken by Nursing 12/07/20 20:30 12/07/20 20:54 12/07/20 21:00 Temperature Temperature Source Pulse Rate 61 86 67 Pulse Rate from SpO2 Sensor 63 71 65 Respiratory Rate 21 17 21 Blood Pressure 121/69 136/71 Blood Pressure Mean 86 92 Pulse Oximetry 96 93 92 Oxygen Delivery Method Room Air Room Air Room Air Sepsis Recent Fever Within 48 Hours Sepsis New/Unexplained Change in Mental Status Sepsis Action Taken by Nursing 12/07/20 21:15 12/07/20 21:30 12/07/20 21:45 Temperature Temperature Source Pulse Rate 76 79 66 Pulse Rate from SpO2 Sensor 71 Respiratory Rate 23 18 17 Blood Pressure Blood Pressure Mean Pulse Oximetry 93 95 96 Oxygen Delivery Method Room Air Room Air Room Air Sepsis Recent Fever Within 48 Hours Sepsis New/Unexplained Change in Mental Status Sepsis Action Taken by Nursing 12/07/20 22:00 12/07/20 22:15 Temperature Temperature Source Pulse Rate 64 70 Pulse Rate from SpO2 Sensor Respiratory Rate 13 17 Blood Pressure 110/58 L Blood Pressure Mean 75 Pulse Oximetry 95 97 Oxygen Delivery Method Room Air Room Air Sepsis Recent Fever Within 48 Hours Sepsis New/Unexplained Change in Mental Status Sepsis Action Taken by Nursing GENERAL: Fatigued in appearance. EYE EXAM: Normal conjunctiva. PERRL, no anisocoria and EOM's grossly intact w/o pain. Head: No obvious deformity hematoma or laceration noted. NECK: Supple, no nuchal rigidity, no adenopathy, non-tender. No signs of meningismus. No midline C-spine TTP. Chest: Mild right-sided chest wall pain without any obvious crepitus or ecchymosis. LUNGS: Clear to auscultation. Normal chest wall mechanics. HEART: NSR, no MRG. ABDOMEN: Abdomen soft, non-tender, normo-active bowel sounds, no masses, no rebound or guarding. Well-healed abdominal scars. BACK: No CVA TTP. No pain to palpation. SKIN: No rashes. Bruising noted to the left upper extremity. UPPER EXTREMITIES: Upper extremities are grossly normal. Mild pain to the left forearm with scattered ecchymosis, no obvious deformity. LOWER EXTREMITIES: Grossly normal, no edema. No pain to palpation. No obvious deformity. No obvious leg length discrepancy. NEURO EXAM: Arousable to voice, cranial nerves grossly intact, follows basic commands and is able to move all extremities, Course Course Cardiac monitoring: An order was placed for continuous cardiac monitoring. The monitor shows a rate of 59 with sinus rhythm. Administered Medications Discontinued Medications Sodium Chloride (Nss) 500 mls @ 999 mls/hr IV .Q31M KIRSTEN Stop: 12/07/20 19:45 Last Infusion: 12/07/20 20:06 Dose: 0 mls/hr Documented by: [id number] Admin: 12/07/20 19:33 Dose: 999 mls/hr Documented by: [id number] Levetiracetam 1,000 mg/ Sodium (Chloride) 110 mls @ 440 mls/hr IV NOW STA Stop: 12/07/20 19:23 Last Infusion: 12/07/20 19:55 Dose: 0 mls/hr Documented by: [id number] Admin: 12/07/20 19:33 Dose: 440 mls/hr Documented by: [id number] Ioversol (Optiray 320 125ml) 118 ml IV ONCE ONE Stop: 12/07/20 19:16 Last Admin: 12/07/20 19:15 Dose: 118 ml Documented by: [id number] Medical Decision Making Differential Diagnosis Fracture, dislocation, contusion, intra-abdominal, pneumothorax, intrathoracic, intracranial, neurologic, compartment syndrome, rhabdomyolysis, as well as other pathologies. Medical Records Attestation: I reviewed the patient's medical records. Home Medications Current Medication List: was personally reviewed by me Laboratory Data Attestation: I reviewed the patient's lab results. Result diagrams: 12/07/20 19:10 12/07/20 19:10 Lab Results 12/07/20 12/07/20 12/07/20 Range/Units 19:10 19:10 19:10 WBC 5.86 (4.8-10.8) K/uL RBC 4.53 L (4.7-6.1) M/uL Hgb 11.7 L (14.0-18.0) g/dL Hct 37.1 L (42-52) % MCV 81.9 (80-100) fL MCH 25.8 (25-34) pg MCHC 31.5 L (32-36) g/dL RDW Std Deviation 47.2 H (36.4-46.3) fL RDW Coeff of Lianne 15.8 H (11.5-14.5) % Plt Count 194 (130-400) K/uL MPV 10.1 (7.4-10.4) fL Immature Gran % (Auto) 1.2 % Neut % (Auto) 74.7 % Lymph % (Auto) 17.9 % Gonzales % (Auto) 4.6 % Eos % (Auto) 1.4 % Baso % (Auto) 0.2 % Neut # (Auto) 4.38 (1.4-6.5) K/uL Lymph # (Auto) 1.05 L (1.2-3.4) K/uL Gonzales # (Auto) 0.27 (0.11-0.59) K/uL Eos # (Auto) 0.08 (0-0.5) K/uL Baso # (Auto) 0.01 (0-0.2) K/uL Immature Gran # (Auto) 0.07 H (0.00-0.02) K/uL PT 24.5 H (9.0-12.0) Seconds INR 2.6 H (0.9-1.1) Sodium 139 (136-145) mmol/L Potassium 4.3 (3.5-5.1) mmol/L Chloride 107 (98-107) mmol/L Carbon Dioxide 24 (21-32) mmol/L Anion Gap 8.0 (3-11) BUN 45 H (7-18) mg/dl Creatinine 1.49 H (0.6-1.4) mg/dl Est Cr Clr Drug Dosing 49.0 ml/min Est GFR ( Amer) 52.5 ml/min Est GFR (Non-Af Amer) 45.3 ml/min BUN/Creatinine Ratio 30.3 H (10-20) Glucose 247 H (70-99) mg/dl Calcium 9.2 (8.5-10.1) mg/dl Phosphorus (2.5-4.9) mg/dl Magnesium (1.8-2.4) mg/dl Total Bilirubin 0.3 (0.2-1) mg/dl AST 32 (15-37) U/L ALT 38 (12-78) U/L Alkaline Phosphatase 103 (45-117) U/L Troponin I < 0.015 (0-0.045) ng/ml Total Protein 6.7 (6.4-8.2) gm/dl Albumin 3.3 L (3.4-5.0) gm/dl Globulin 3.4 (2.5-4.0) gm/dl Albumin/Globulin Ratio 1.0 (0.9-2) COVID-19 Eval Order SARS-CoV-2 (PCR) (Negative) 12/07/20 12/07/20 12/07/20 Range/Units 19:10 19:39 19:39 WBC (4.8-10.8) K/uL RBC (4.7-6.1) M/uL Hgb (14.0-18.0) g/dL Hct (42-52) % MCV (80-100) fL MCH (25-34) pg MCHC (32-36) g/dL RDW Std Deviation (36.4-46.3) fL RDW Coeff of Lianne (11.5-14.5) % Plt Count (130-400) K/uL MPV (7.4-10.4) fL Immature Gran % (Auto) % Neut % (Auto) % Lymph % (Auto) % Gonzales % (Auto) % Eos % (Auto) % Baso % (Auto) % Neut # (Auto) (1.4-6.5) K/uL Lymph # (Auto) (1.2-3.4) K/uL Gonzales # (Auto) (0.11-0.59) K/uL Eos # (Auto) (0-0.5) K/uL Baso # (Auto) (0-0.2) K/uL Immature Gran # (Auto) (0.00-0.02) K/uL PT (9.0-12.0) Seconds INR (0.9-1.1) Sodium (136-145) mmol/L Potassium (3.5-5.1) mmol/L Chloride (98-107) mmol/L Carbon Dioxide (21-32) mmol/L Anion Gap (3-11) BUN (7-18) mg/dl Creatinine (0.6-1.4) mg/dl Est Cr Clr Drug Dosing ml/min Est GFR ( Amer) ml/min Est GFR (Non-Af Amer) ml/min BUN/Creatinine Ratio (10-20) Glucose (70-99) mg/dl Calcium (8.5-10.1) mg/dl Phosphorus 2.6 (2.5-4.9) mg/dl Magnesium 1.7 L (1.8-2.4) mg/dl Total Bilirubin (0.2-1) mg/dl AST (15-37) U/L ALT (12-78) U/L Alkaline Phosphatase (45-117) U/L Troponin I (0-0.045) ng/ml Total Protein (6.4-8.2) gm/dl Albumin (3.4-5.0) gm/dl Globulin (2.5-4.0) gm/dl Albumin/Globulin Ratio (0.9-2) COVID-19 Eval Order Covid19 at [facility] SARS-CoV-2 (PCR) NEGATIVE (Negative) Imaging Data Radiologist's Impression: Cervical Spine CT 12/07/20 19:09 CT OF THE CERVICAL SPINE CLINICAL HISTORY: s/p fall COMPARISON STUDY: August 31, 2020 CT DOSE: TECHNIQUE: CT scan of the cervical spine was performed from the skull base to the thoracic inlet. Images are reviewed in the axial, sagittal, and coronal planes. IV contrast was not administered for this examination. A dose lowering technique was utilized adhering to the principles of ALARA. FINDINGS: The visualized portions of the lung apices reveal no evidence of pneumothorax. The prevertebral soft tissues are normal. No fractures or subluxations are visualized. Evaluation is limited due to diffuse severe osteopenia. Normal cervical lordosis is decreased. Vertebral body heights are maintained. There is ACDF placement and disc spacer is seen at the C4-C5 level. Opacified fracture is extending to the central canal at the level of C5 and associated with central canal and left neural foraminal narrowing. Partial opacification of inferior aspect of the right and left mastoid air cells might represent mastoiditis. IMPRESSION: No definite acute fracture or traumatic malalignment. Limited exam due to osteopenia. ACDF is seen within C4-C5 level with disc spacer. Calcified structures the posterior aspect of C4-C5 show extension to the central canal associated with its narrowing. Similar findings were seen on prior study performed on August 31, 2020. Multilevel degenerative changes. Possible mastoiditis. ACT 112: Negative or not required by law. The above report was generated using voice recognition software. It may contain grammatical, syntax or spelling errors. Electronically signed by: Cecilia Kyle DO 12/07/2020 8:[address] 12/07/20 19:09 CT head/brain wo con CLINICAL HISTORY: s/p fall COMPARISON STUDY: September 04, 2020. TECHNIQUE: Axial CT of the brain is performed from the vertex to the skull base. IV contrast was not administered for this examination. A dose lowering technique was utilized adhering to the principles of ALARA. CT DOSE: FINDINGS: No intra or extra-axial mass lesions are visualized. There is no CT evidence of acute cortical infarction. There is no evidence of midline shift. There is no acute hemorrhage. No acute depressed calvarial fractures are visualized. There are patchy white matter hypodensities likely on a small vessel basis. Minimal atrophic changes of brain parenchyma are seen and associated with ex vacuo dilatation of ventricles. There is no evidence of acute sinusitis IMPRESSION: No acute intracranial hemorrhage, no midline shift or space occupying lesions. No acute depressed skull fractures. Chronic small vessel ischemia and atrophic changes of brain parenchyma. ACT 112: Negative or not required by law. The above report was generated using voice recognition software. It may contain grammatical, syntax or spelling errors. Electronically signed by: Cecilia Kyle DO 12/07/2020 8:16 PM Forearm X-Ray 12/07/20 19:11 XR forearm LT 2V CLINICAL HISTORY: pain post fall COMPARISON: None. DISCUSSION: The bones and joint spaces appear intact. There is no evidence of fracture, dislocation or bony disease. Mild diffuse soft tissue edema. Evaluation is slightly limited due to suboptimal positioning on the lateral view. IMPRESSION: As above. ACT 112: Negative or not required by law. The above report was generated using voice recognition software. It may contain grammatical, syntax or spelling errors. Electronically signed by: Cecilia Kyle DO 12/07/2020 8:14 PM Abdomen/Pelvis CT 12/07/20 19:18 CT SCAN OF THE ABDOMEN AND PELVIS WITHOUT CONTRAST CLINICAL HISTORY: syncope, h/o ascending TAA s/p repair, iodine jose carlos COMPARISON STUDY: November 11, 2020 TECHNIQUE: CT scan of the abdomen and pelvis was performed from the lung bases to the proximal femurs. Images are reviewed in the axial, sagittal, and coronal planes. IV contrast was not administered for this examination. A dose lowering technique was utilized adhering to the principles of ALARA. CT DOSE: 4013.27 mGy.cm FINDINGS: Lower chest: Please see report of the chest performed at the same time. Liver: The unenhanced liver is normal in size, contour, and attenuation. There is no intrahepatic biliary ductal dilatation. Gallbladder: Is surgically absent Spleen: Normal in size and attenuation. Pancreas: Normal appearance of the pancreas. Focal calcification are seen near distal aspect of the common bile duct. Common bile duct is nondilated. Adrenal glands: Unremarkable. Kidneys: The unenhanced kidneys are normal in size without hydronephrosis. There is no contour deforming renal mass lesion. No renal calculi are identified. Bowel: Esophageal ring is seen. Bowel loops are nondilated. Appendix is not well seen. Mild diverticulosis of sigmoid colon is seen without evidence of diverticulitis. Peritoneum: There is no intraperitoneal free air or abdominal ascites. Vasculature: Abdominal aorta is normal in caliber with scattered calcifications of its wall. Adenopathy: None. Pelvic viscera: Urinary bladder is adequately filled with urine. Prostate gland is diminished in size with few metallic densities which might represent seeds. Possible status post TURP. Skeletal structures: Osteopenia. Degenerative changes of the spine. Postlaminectomy changes and orthopedic hardware within lower lumbar spine, stable since prior. IMPRESSION: 1. No acute intra-abdominal process. Bowel loops are nondilated. Appendix is not well seen. 2. Calcified aorta. 3. Diverticulosis of sigmoid colon without evidence of diverticulitis. 4. Status post cholecystectomy. 5. The rest of findings as above. ACT 112: Negative or not required by law. The above report was generated using voice recognition software. It may contain grammatical, syntax or spelling errors. Electronically signed by: Cecilia Kyle DO 12/07/2020 8:[address] 12/07/20 19:18 CT chest diagnostic wo con CLINICAL HISTORY: syncope, h/o ascending TAA s/p repair, iodine jose carlos COMPARISON STUDY: November 11, 2020 CT DOSE: TECHNIQUE: CT of the thorax was performed from the thoracic inlet to the lung bases. Images are reviewed in the axial, sagittal, and coronal planes. IV contrast was not administered for this examination. A dose lowering technique was utilized adhering to the principles of ALARA. FINDINGS: There is no axillary, supra clavicle or internal mammary lymphadenopathy seen. Mediastinal lymph nodes are not enlarged. Thyroid gland is not well seen. Small hiatal hernia and gastric lap band is again seen. Thoracic aorta: Thoracic aorta is normal in caliber. Status post ascending aorta repair. Scattered calcifications are seen within aortic wall. Evaluation of aorta is limited due to lack of IV contrast. 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 Heart is normal in size. 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 Calcifications of the [place] coronary arteries. Coronary stents. Lungs and pleural spaces: Tracheobronchial tree is patent. Multifocal groundglass tree-in-bud opacities are seen within left lower lobe and right middle lobe. Possible atelectasis/scarring is seen within subpleural aspe ct of right lower lobe and right middle lobe. No pleural effusion is seen. Upper abdomen: Please see separate report of abdomen and pelvis performed at the same time. Skeletal structures: Multilevel degenerative changes of the spine. Sternotomy changes. IMPRESSION: 1. Normal size of ascending and descending aorta. Status post ascending aorta replacement. Evaluation is limited due to lack of IV contrast. 2. Multifocal tree-in-bud groundglass opacities are seen within lower lungs as detailed above and could represent infectious/inflammatory process. Please correlate above-mentioned findings with recent prior history and current presentation of pneumonia/infectious pulmonary process. Short-term follow-up in 4-6 weeks on nonemergency basis is recommended to document resolution. 3. Dilatation of the main pulmonary artery which could be seen in pulmonary hypertension. 4. The rest of findings as above. ACT 112: Positive. There are findings on this exam that require communication between the performing entity and the patient following Patient Test Result Information Act ([place] Act 112) guidelines. The above report was generated using voice recognition software. It may contain grammatical, syntax or spelling errors. Electronically signed by: Cecilia Kyle DO 12/07/2020 8:47 PM ECG Data Attestation: I personally reviewed and interpreted this ECG as follows: Additional Comments: Sinus rhythm with PACs, rate of 76, normal intervals, normal axis, no obvious ST changes. MDM Narrative Patient was seen due to concern for a fall at home that was ground-level in nature but when EMS brought the patient and the patient did have a period of unresponsiveness for several minutes. There were no reported abnormal vital signs and the patient was protecting his airway. Patient does have a known history of seizure but the patient was not observed to have any focal or diffuse shaking. The patient does seem slightly confused but is easily arousable and responds appropriately following commands. The patient does complain of some right-sided chest pain as well as left forearm pain. Patient denies any fevers or chills. The patient does have a known history of seizure. No tongue biting or incontinence. Patient did have a normal white counts with a hemoglobin 11.7. Patient does have some prerenal azotemia. The patient was loaded with IV Keppra. Sugar 247. Magnesium slightly low at 1.7. Troponin not detectable. Covid negative. Patient's CTs with no remarkable findings. There was a comment about mastoiditis with the patient not complain of any pain. The patient did have a nonsustained run of ventricular tachycardia of approximately 15 beats. I did speak with Dr. Covarrubias with cardiology who did not recommend any active treatment at this time unless he had a sustained run of 30 or more seconds. I did speak convey this to the on-call inpatient hospitalist Dr. Dong. They will replete the magnesium. Phos is normal. Impression & Plan Seizure, Non-sustained ventricular tachycardia, Hypomagnesemia, Dehydration Discharge Plan Visit Data Chief Complaint: Fall Discharge Problem: Seizure, Non-sustained ventricular tachycardia, Hypomagnesemia, Dehydration Patient Disposition: Admitted As Inpatient Discharge Instructions Interventions: ED Discharge Assessment Last Done: 12/07/20 22:54
[2020-12-07] MEDS ORDERED: levETIRAcetam 1,000 MG in 0.9 % SODIUM CHLORIDE 100 ML IV STA (19:09)
[2020-12-07] MEDS ORDERED: OPTIRAY 320 125ml IV ONE (19:15)
[2020-12-07] MEDS ORDERED: SODIUM CHLORIDE 0.9% 500 ML IV SCH (19:15)
[2020-12-07 19:22] LABS: Basophils # (auto) 0.01 K/uL (0-0.2); Basophils % (auto) 0.2 %; Eosinophils # (auto) 0.08 K/uL (0-0.5); Eosinophils % (auto) 1.4 %; Hematocrit (blood only) 37.1 % (42-52); Hemoglobin 11.7 g/dL (14.0-18.0); Immature Granulocytes # (auto) 0.07 K/uL (0.00-0.02); Immature Granulocytes % (auto) 1.2 %; Lymphocytes # (auto) 1.05 K/uL (1.2-3.4); Lymphocytes % (auto) 17.9 %; Mean Corpuscular Hemoglobin 25.8 pg (25-34); Mean Corpuscular Hgb Conc 31.5 g/dL (32-36); Mean Corpuscular Volume 81.9 fL (80-100); Mean Platelet Volume 10.1 fL (7.4-10.4); Monocytes # (auto) 0.27 K/uL (0.11-0.59); Monocytes % (auto) 4.6 %; Neutrophils # (auto) 4.38 K/uL (1.4-6.5); Neutrophils % (auto) 74.7 %; Platelet Count 194 K/uL (130-400); RDW Coefficient of Variation 15.8 % (11.5-14.5); RDW Standard Deviation 47.2 fL (36.4-46.3); Red Blood Count 4.53 M/uL (4.7-6.1); White Blood Count 5.86 K/uL (4.8-10.8)
[2020-12-07 19:37] LABS: INR 2.6 (0.9-1.1); Prothrombin Time 24.5 Seconds (9.0-12.0)
[2020-12-07 19:45] LABS: Alanine Aminotransferase 38 U/L (12-78); Albumin Level 3.3 gm/dl (3.4-5.0); Aspartate Aminotransferase 32 U/L (15-37); BUN Creatinine Ratio 30.3 (10-20); Blood Urea Nitrogen 45 mg/dl (7-18); Calcium 9.2 mg/dl (8.5-10.1); Carbon Dioxide 24 mmol/L (21-32); Chloride 107 mmol/L (98-107); Est GFR (African American) 52.5 ml/min; Est GFR (Non-African American) 45.3 ml/min; Glucose 247 mg/dl (70-99); Potassium 4.3 mmol/L (3.5-5.1); Sodium 139 mmol/L (136-145)
[2020-12-07 19:50] LABS: Alkaline Phosphatase 103 U/L (45-117); Bilirubin,Total 0.3 mg/dl (0.2-1); Globulin 3.4 gm/dl (2.5-4.0); Total Protein 6.7 gm/dl (6.4-8.2); Troponin I < 0.015 ng/ml (0-0.045)
--- NOTE | 2020-12-07 20:15 | XRay Report ---
XR forearm LT 2V CLINICAL HISTORY: pain post fall COMPARISON: None. DISCUSSION: The bones and joint spaces appear intact. There is no evidence of fracture, dislocation o r bony disease. Mild diffuse soft tissue edema. Evaluation is slightly limited due to suboptimal positioning on the l ateral view. IMPRESSION: As above. ACT 112: Negative or not required by law. The above report was generated using voice recognition software. It may contain grammatical, syntax o r spelling errors. Electronically signed by: Cecilia Kyle DO 12/07/2020 8:14 PM
--- NOTE | 2020-12-07 20:17 | CT Scan Report ---
CT head/brain wo con CLINICAL HISTORY: s/p fall COMPARISON STUDY: September 04, 2020. TECHNIQUE: Axial CT of the brain is performed from the vertex to the skull base. IV contrast was not administered for this examination. A dose lowering technique was utilized adhering to the principles of ALARA. CT DOSE: FINDINGS: No intra or extra-axial mass lesions are visualized. There is no CT evidence of acute cortical infarc tion. There is no evidence of midline shift. There is no acute hemorrhage. No acute depressed calvar ial fractures are visualized. There are patchy white matter hypodensities likely on a small vessel basis. Minimal atrophic changes of brain parenchyma are seen and associated with ex vacuo dilatation of vent ricles. There is no evidence of acute sinusitis IMPRESSION: No acute intracranial hemorrhage, no midline shift or space occupying lesions. No acute depressed skull fractures. Chronic small vessel ischemia and atrophic changes of brain parenchyma. ACT 112: Negative or not required by law. The above report was generated using voice recognition software. It may contain grammatical, syntax o r spelling errors. Electronically signed by: Cecilia Kyle DO 12/07/2020 8:16 PM
--- NOTE | 2020-12-07 20:25 | CT Scan Report ---
CT OF THE CERVICAL SPINE CLINICAL HISTORY: s/p fall COMPARISON STUDY: August 31, 2020 CT DOSE: TECHNIQUE: CT scan of the cervical spine was performed from the skull base to the thoracic inlet. Opal ges are reviewed in the axial, sagittal, and coronal planes. IV contrast was not administered for thi s examination. A dose lowering technique was utilized adhering to the principles of ALARA. FINDINGS: The visualized portions of the lung apices reveal no evidence of pneumothorax. The prevertebral soft tissues are normal. No fractures or subluxations are visualized. Evaluation is limited due to diffuse severe osteopenia. Normal cervical lordosis is decreased. Vertebral body heights are maintained. There is ACDF placement and disc spacer is seen at the C4-C5 level. Opacified fracture is extending to the central canal at the level of C5 and associated with central c anal and left neural foraminal narrowing. Partial opacification of inferior aspect of the right and left mastoid air cells might represent mast oiditis. IMPRESSION: No definite acute fracture or traumatic malalignment. Limited exam due to osteopenia. ACDF is seen within C4-C5 level with disc spacer. Calcified structures the posterior aspect of C4-C5 show extension to the central canal associated with its narrowing. Similar findings were seen on prio r study performed on August 31, 2020. Multilevel degenerative changes. Possible mastoiditis. ACT 112: Negative or not required by law. The above report was generated using voice recognition software. It may contain grammatical, syntax o r spelling errors. Electronically signed by: Cecilia Kyle DO 12/07/2020 8:23 PM
--- NOTE | 2020-12-07 20:34 | CT Scan Report ---
CT SCAN OF THE ABDOMEN AND PELVIS WITHOUT CONTRAST CLINICAL HISTORY: syncope, h/o ascending TAA s/p repair, iodine jose carlos COMPARISON STUDY: November 11, 2020 TECHNIQUE: CT scan of the abdomen and pelvis was performed from the lung bases to the proximal femurs . Images are reviewed in the axial, sagittal, and coronal planes. IV contrast was not administered fo r this examination. A dose lowering technique was utilized adhering to the principles of ALARA. CT DOSE: 4013.27 mGy.cm FINDINGS: Lower chest: Please see report of the chest performed at the same time. Liver: The unenhanced liver is normal in size, contour, and attenuation. There is no intrahepatic robert iary ductal dilatation. Gallbladder: Is surgically absent Spleen: Normal in size and attenuation. Pancreas: Normal appearance of the pancreas. Focal calcification are seen near distal aspect of the c ommon bile duct. Common bile duct is nondilated. Adrenal glands: Unremarkable. Kidneys: The unenhanced kidneys are normal in size without hydronephrosis. There is no contour deform ing renal mass lesion. No renal calculi are identified. Bowel: Esophageal ring is seen. Bowel loops are nondilated. Appendix is not well seen. Mild diverticu losis of sigmoid colon is seen without evidence of diverticulitis. Peritoneum: There is no intraperitoneal free air or abdominal ascites. Vasculature: Abdominal aorta is normal in caliber with scattered calcifications of its wall. Adenopathy: None. Pelvic viscera: Urinary bladder is adequately filled with urine. Prostate gland is diminished in size with few metallic densities which might represent seeds. Possible status post TURP. Skeletal structures: Osteopenia. Degenerative changes of the spine. Postlaminectomy changes and ortho pedic hardware within lower lumbar spine, stable since prior. IMPRESSION: 1. No acute intra-abdominal process. Bowel loops are nondilated. Appendix is not well seen. 2. Calcified aorta. 3. Diverticulosis of sigmoid colon without evidence of diverticulitis. 4. Status post cholecystectomy. 5. The rest of findings as above. ACT 112: Negative or not required by law. The above report was generated using voice recognition software. It may contain grammatical, syntax o r spelling errors. Electronically signed by: Cecilia Kyle DO 12/07/2020 8:33 PM
--- NOTE | 2020-12-07 20:48 | CT Scan Report ---
CT chest diagnostic wo con CLINICAL HISTORY: syncope, h/o ascending TAA s/p repair, iodine jose carlos COMPARISON STUDY: November 11, 2020 CT DOSE: TECHNIQUE: CT of the thorax was performed from the thoracic inlet to the lung bases. Images are revi ewed in the axial, sagittal, and coronal planes. IV contrast was not administered for this examinatio n. A dose lowering technique was utilized adhering to the principles of ALARA. FINDINGS: There is no axillary, supra clavicle or internal mammary lymphadenopathy seen. Mediastinal lymph node s are not enlarged. Thyroid gland is not well seen. Small hiatal hernia and gastric lap band is again seen. Thoracic aorta: Thoracic aorta is normal in caliber. Status post ascending aorta repair. Scattered ca lcifications are seen within aortic wall. Evaluation of aorta is limited due to lack of IV contrast. 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 Heart is normal in size. 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 Calcifications of the [place] coronary arteries. Coronary stents. Lungs and pleural spaces: Tracheobronchial tree is patent. Multifocal groundglass tree-in-bud opacities are seen within left lower lobe and right middle lobe. P ossible atelectasis/scarring is seen within subpleural aspect of right lower lobe and right middle lo be. No pleural effusion is seen. Upper abdomen: Please see separate report of abdomen and pelvis performed at the same time. Skeletal structures: Multilevel degenerative changes of the spine. Sternotomy changes. IMPRESSION: 1. Normal size of ascending and descending aorta. Status post ascending aorta replacement. Evaluatio n is limited due to lack of IV contrast. 2. Multifocal tree-in-bud groundglass opacities are seen within lower lungs as detailed above and co uld represent infectious/inflammatory process. Please correlate above-mentioned findings with recent prior history and current presentation of pneumonia/infectious pulmonary process. Short-term follow-u p in 4-6 weeks on nonemergency basis is recommended to document resolution. 3. Dilatation of the main pulmonary artery which could be seen in pulmonary hypertension. 4. The rest of findings as above. ACT 112: Positive. There are findings on this exam that require communication between the performing entity and the patient following Patient Test Result Information Act ([place] Act 112) guidelines. The above report was generated using voice recognition software. It may contain grammatical, syntax o r spelling errors. Electronically signed by: Cecilia Kyle DO 12/07/2020 8:47 PM
[2020-12-07 22:28] LABS: Magnesium 1.7 mg/dl (1.8-2.4); Phosphorus 2.6 mg/dl (2.5-4.9)
--- NOTE | 2020-12-07 22:34 | History & Physical Report ---
Date of Service December 07, 2020 Assessment & Plan (1) Syncopal episodes: Plan: Mr. Bradford is a 75 yo M with a history of non-epileptic seizure disorder and heart disease who was brought in by EMS after a syncopal episode earlier this evening. - etiology of syncope uncertain: - Patient unable to recall event or any prodromal symptoms. - Cardiac origin is certainly possible given history of heart disease and observed run of v-tach while in the emergency department. Continue cardiac monitoring. Defibrillator pads placed on chest. Na, K and Ca WNL. Check Mag and Phos. Replete electrolytes as needed. Trend trops. - Neurogenic syncope is possible given hx of non-epileptic seizure disorder, and confusion upon arrival of EMS. However, recent 48 hour EEG at [facility] was ultimately negative. Continue home anti-epileptics. - fortunately imaging all negative for acute injury - neuro checks q4 hour given fall on Coumadin - PT/OT ordered (2) Chronic kidney disease, stage 3a: Plan: - creatinine at 1.49, BUN at 45 - baseline Cr 1.1 - suspect pre-renal etiology, as patient reported diminished PO intake - LR at 100mls/hr - trend BMP (3) Diabetes: Plan: - a1c 7.4 from 10/12/20 - continue home lantus insulin + sliding scale ordered - Trulicity every Sunday - carb consistent diet - continue high intensity statin (4) Hypoalbuminemia: Plan: - albumin low at 3.3 - likely secondary to reduced PO intake/failure to thrive - boost supplements ordered (5) CAD (coronary artery disease): Plan: - continue ASA + atorvasatin (6) Parkinsonism: Plan: - continue home dose sinemet (7) Rheumatoid arthritis: Plan: - continue weekly methotrexate and daily prednisone (8) Gout: Plan: - continue home dose allopurinol DVT ppx: On Coumadin Diet: Carb Consistent DM2; minced and moist, aspiration precautions Dispo: PCU/tele Code: full, I discussed with patient History of Present Illness Chief Complaint: Syncope Primary Care Provider: Josh Gaspar MD Mr. Bradford is a 75 yo medically complicated gentleman who was brought in from home by EMS after suffering a fall. When EMS arrived he was laying on the kitchen floor below his sink - it appears as though he was doing dishes. He was reportedly unresponsive for a period of several minutes. There was no report of loss of bladder continence or tongue biting. His fingerstick blood sugar was 300. He lives alone, he pressed his med alert button to [facility]. At the time of arrival to the ED, Mr. Bradford was confused but arousable. When asked about the episode that lead to coming into the emergency department - he says he does not recall what happened. He does not recall falling or any prodromal symptoms. He does report striking his head on a kitchen cabinet and having a headache. He denies being sick in the days leading up to admission - although he does state that he has not been eating much. He was recently hospitalized for an aspiration pneumonia - he was told to consume a minced and moist diet by speech therapy during his last admission for severe oropharyngeal dysphagia, and he struggles to find food to prepare himself. He said his PCP recently told him he was extremely malnourished. He also admits to being very depressed over the past few weeks to months - he is supposed to be meeting with a therapist virtually on of this week. He does have a history of non-epileptic seizure disorder for which he is on Keppra and Topamax. He had a 48 hour EEG done at [facility] in October 2019, which showed no abnormalities. He follows locally with [facility]. He also has a history of CAD, a prosthetic aortic valve replacement and paroxys mal A-fib - he is anticoagulated on Coumadin. He had an echo at [facility] on 09/05/20 which showed normal LV systolic function, an EF of 60-65%, no regional wall motion abnormalities and mild mitral regurgitation. He had a repeat echo on 12/02/20 with [facility] - report indicates normal LV size and systolic function, with no regional wall motion abnormalities. Biplane EF is 60%. 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 Moderate concentric LV hypertrophy. Grade I diastolic dysfunction of the left ventricle. A well seated mechanical AVR noted, mild prosthetic valvular aortic regurgitation noted. While assessing the patient at bedside, he did have a 13-beat run of monomorphic V-tach. He was asymptomatic at the time. He was afebrile, HR was 69, BP was 111/69, RR 18, satting 95 on room air. His WBC was normal; Hgb was 11.7, up from 10.4 on previous checks. His INR was at goal at 2.6. Cr 1.49, BUN at 45. LFTs were WNL. Trop undetectable. COV19 neg. EKG showing sinus bradycardia at 59bpm. Head and C-spine CT showing no acute abnormalities. Cat scan of abdomen showing no acute pathology. Chest CT showing multifocal ground glass opacities, radiology recommending 4-6 week follow up to assess for resolution. Left Forearm Xray showing no acute fractures or dislocations. He was given his evening dose of Keppra and 1 liter of NSS. Allergies Allergy/AdvReac Type Severity Reaction Status Date / Time Iodinated Contrast Media Allergy Severe Anaphylaxis Verified 12/07/20 20:10 shellfish derived Allergy Severe Anaphylaxis Verified 12/07/20 20:10 tamsulosin [From Flomax] Allergy Intermediate Itching Unverified 12/07/20 20:10 Tetanus Vaccines and Toxoid Allergy Unknown Unknown Verified 12/07/20 20:10 Home Medications Medication Instructions Recorded Confirmed Type albuterol sulfate 90 mcg/actuation 2 puff INHALATION Q4H PRN 01/20/20 12/07/20 History aerosol inhaler (Ventolin HFA) allopurinol 100 mg tablet 100 mg PO HS 01/20/20 12/07/20 History cholecalciferol (vitamin D3) 50 2,000 unit PO HS 01/20/20 12/07/20 History mcg (2,000 unit) capsule (Vitamin D3) dulaglutide 1.5 mg/0.5 mL 1.5 mg SUBCUT WK 01/20/20 12/07/20 History subcutaneous pen injector (Trulicity) nitroglycerin 0.4 mg sublingual 0.4 mg SUBLINGUAL DIRECTED PRN 01/20/20 12/07/20 History tablet [id number]-rikr 333 mg-133 1 tab PO HS 02/05/20 12/07/20 History mg-5 mg tablet topiramate 100 mg tablet 100 mg PO BID 30 Days #60 tab 05/17/20 12/07/20 Rx atorvastatin 40 mg tablet 40 mg PO HS 05/28/20 12/07/20 History carbidopa 25 mg-levodopa 100 mg 0.5 tab PO TID #90 tab 07/02/20 12/07/20 Rx tablet insulin glargine 100 unit/mL (3 20 unit SUBCUT BID 07/10/20 12/07/20 History mL) subcutaneous pen (Lantus Solostar U-100 Insulin) gabapentin 300 mg capsule 600 mg PO BID 09/04/20 12/07/20 History insulin aspart U-100 100 unit/mL 0 unit SUBCUT ACHS 09/04/20 12/07/20 History (3 mL) subcutaneous pen (Novolog Flexpen U-100 Insulin aspart) aspirin 81 mg tablet,delayed 81 mg PO QAM 10/09/20 12/07/20 History release (Adult Low Dose Aspirin) famotidine 20 mg tablet 20 mg PO BID #20 tab 10/09/20 12/07/20 Rx methotrexate sodium 2.5 mg tablet 15 mg PO WK 10/09/20 12/07/20 History ondansetron 4 mg disintegrating 4 mg PO Q6H PRN #14 tab 10/09/20 12/07/20 Rx tablet umeclidinium 62.5 mcg-vilanterol 1 inh INHALATION QAM 10/09/20 12/07/20 History 25 mcg/actuation powdr for inhalation (Anoro Ellipta) guaifenesin 600 mg tablet, 600 mg PO Q12 #10 tab 10/16/20 12/07/20 Rx extended release 12 hr (Mucinex) sucralfate 1 gram tablet 1 g PO QID #20 tab 10/16/20 12/07/20 Rx sennosides 8.6 mg tablet (Senokot) 8.6 mg PO QAM 10/19/20 12/07/20 History docusate sodium 100 mg capsule 100 mg PO BID #60 cap 11/11/20 12/07/20 Rx (Colace) oxycodone 5 mg tablet 5 mg PO Q6H PRN #12 tab 11/11/20 12/07/20 Rx torsemide 20 mg tablet 20 mg PO DAILY #30 tab 11/24/20 12/07/20 Rx levetiracetam 1,000 mg tablet 1,000 mg PO BID 90 Days #180 tab 11/30/20 12/07/20 Rx furosemide 20 mg tablet 20 mg PO DAILY 12/07/20 12/07/20 History omeprazole 40 mg capsule,delayed 40 mg PO BID 12/07/20 12/07/20 History release prednisone 5 mg tablet 10 mg PO DAILY 12/07/20 12/07/20 History spironolactone 25 mg tablet 25 mg PO DAILY 12/07/20 12/07/20 History warfarin 7.5 mg tablet 7.5 mg PO DAILY 12/07/20 12/07/20 History Past Med/Surg History Medical History Abnormal CT scan, chest Acute hyperglycemia Acute left-sided muscle weakness CAD (coronary artery disease) Chronic pulmonary aspiration Dehydration Diabetes Fall HLD (hyperlipidemia) Hypoxia Interstitial lung disease Interstitial lung disease due to connective tissue disease Lung nodule Neurogenic claudication Nocturnal hypoxia Palliative care encounter Polymyositis Polymyositis Prostate cancer s/p XRT Rheumatoid arthritis Rheumatoid arthritis Seizure-like activity Shortness of breath Stroke-like symptom 12/2019, w/ blurry vision and dysarthria. mild R sided wkness. attending outpatient physical therapy w/ good improvement in strength (5+/5 strength of all 4 extremities as of 05/28/20) Supratherapeutic INR Thoracic ascending aortic aneurysm s/p repair Weakness Surgical History H/O hernia repair History of aortic valve replacement mechanical History of cholecystectomy History of fusion of cervical spine History of gastric bypass lap band History of heart artery stent History of lung biopsy 2019 History of partial nephrectomy Family History Mother , age 87 of pulmonary issues Rheumatoid arthritis Father , in his mid 80s of a stroke Stroke Other Coronary heart disease Social History Smoking Status: Unknown if ever smoked Second Hand Exposure: No; Hx Alcohol Use: No Hx Substance Use: No Preferred Language: Armenian Communication Ability: Effective Hearing Ability: Hard of Hearing Artificial Pearl Maker Required: No Beliefs That Will Affect Care: None marital status: / Current Living Situation: Alone Current Living Situation Comment: spends nights with son, has [employer] week from 12-29 current occupational status: retired 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 Feels Safe at Home: Yes Assistive Devices: Walker Review of Systems Review of Systems: as per HPI Physical Exam Constitutional: WD/WN, vitals as above comfortable Follows commands Eyes: + anicteric sclerae ENMT: external ear and nose normal, oropharynx normal Neck: trachea midline Respiratory: normal respiratory effort, lungs clear to auscultation no cough Cardiovascular: Rate/Rhythm: regular rate; + abnormal rhythm (occasional early beat) Heart Sounds: normal S1, normal S2 and + abnormal opening sounds (systolic ejection click) Extremities: no pedal edema Gastrointestinal (Abdomen): normal bowel sounds, soft, nontender, no hepatosplenomegaly Musculoskeletal: Head/Neck/Chest: normocephalic and head atraumatic Skin: no rashes, warm and dry Neurologic: moves all extremities and + confused Speech / Cognition: normal speech Psychiatric: Orientation: alert, oriented to person, oriented to place and cooperative; + not oriented to time Results & Data Results & Data ([facility]) Vital Signs (Past 12 Hours) Vital Signs Temp Pulse Resp BP Pulse Ox 12/07/20 22:15 70 17 110/58 L 97 12/07/20 22:00 64 13 95 12/07/20 21:45 66 17 96 12/07/20 21:30 79 18 95 12/07/20 21:15 76 23 93 12/07/20 21:00 67 21 136/71 92 12/07/20 20:54 86 17 93 12/07/20 20:30 61 21 121/69 96 12/07/20 20:15 67 23 142/69 H 94 12/07/20 20:00 62 19 124/83 98 12/07/20 19:45 59 L 23 135/61 97 12/07/20 19:15 73 17 128/71 96 12/07/20 19:08 36.9 C 70 17 141/97 H 97 12/07/20 19:06 97 Laboratory Results Laboratory Results WBC 5.89 K/uL (4.8-10.8) 12/08/20 04:09 RBC 3.91 M/uL (4.7-6.1) L 12/08/20 04:09 Hgb 10.1 g/dL (14.0-18.0) L 12/08/20 04:09 Hct 32.0 % (42-52) L 12/08/20 04:09 MCV 81.8 fL (80-100) 12/08/20 04:09 MCH 25.8 pg (25-34) 12/08/20 04:09 MCHC 31.6 g/dL (32-36) L 12/08/20 04:09 RDW Std Deviation 47.3 fL (36.4-46.3) H 12/08/20 04:09 RDW Coeff of Lianne 15.8 % (11.5-14.5) H 12/08/20 04:09 Plt Count 155 K/uL (130-400) 12/08/20 04:09 MPV 9.7 fL (7.4-10.4) 12/08/20 04:09 Immature Gran % (Auto) 1.0 % 12/08/20 04:09 Neut % (Auto) 66.2 % 12/08/20 04:09 Lymph % (Auto) 23.9 % 12/08/20 04:09 Scurry % (Auto) 5.3 % 12/08/20 04:09 Eos % (Auto) 3.4 % 12/08/20 04:09 Baso % (Auto) 0.2 % 12/08/20 04:09 Neut # (Auto) 3.90 K/uL (1.4-6.5) 12/08/20 04:09 Lymph # (Auto) 1.41 K/uL (1.2-3.4) 12/08/20 04:09 Scurry # (Auto) 0.31 K/uL (0.11-0.59) 12/08/20 04:09 Eos # (Auto) 0.20 K/uL (0-0.5) 12/08/20 04:09 Baso # (Auto) 0.01 K/uL (0-0.2) 12/08/20 04:09 Immature Gran # (Auto) 0.06 K/uL (0.00-0.02) H 12/08/20 04:09 PT 24.5 Seconds (9.0-12.0) H 12/07/20 19:10 INR 2.6 (0.9-1.1) H 12/07/20 19:10 Sodium 139 mmol/L (136-145) 12/07/20 19:10 Potassium 4.3 mmol/L (3.5-5.1) 12/07/20 19:10 Chloride 107 mmol/L (98-107) 12/07/20 19:10 Carbon Dioxide 24 mmol/L (21-32) 12/07/20 19:10 Anion Gap 8.0 (3-11) 12/07/20 19:10 BUN 45 mg/dl (7-18) H 12/07/20 19:10 Creatinine 1.49 mg/dl (0.6-1.4) H 12/07/20 19:10 Est Cr Clr Drug Dosing 49.0 ml/min 12/07/20 19:10 Est GFR ( Amer) 52.5 ml/min 12/07/20 19:10 Est GFR (Non-Af Amer) 45.3 ml/min 12/07/20 19:10 BUN/Creatinine Ratio 30.3 (10-20) H 12/07/20 19:10 Glucose 247 mg/dl (70-99) H 12/07/20 19:10 POC Glucose 213 mg/dl (70-99) H 12/08/20 01:05 Calcium 9.2 mg/dl (8.5-10.1) 12/07/20 19:10 Phosphorus 2.6 mg/dl (2.5-4.9) 12/07/20 19:10 Magnesium 1.7 mg/dl (1.8-2.4) L 12/07/20 19:10 Total Bilirubin 0.3 mg/dl (0.2-1) 12/07/20 19:10 AST 32 U/L (15-37) 12/07/20 19:10 ALT 38 U/L (12-78) 12/07/20 19:10 Alkaline Phosphatase 103 U/L (45-117) 12/07/20 19:10 Troponin I < 0.015 ng/ml (0-0.045) 12/07/20 19:10 Total Protein 6.7 gm/dl (6.4-8.2) 12/07/20 19:10 Albumin 3.3 gm/dl (3.4-5.0) L 12/07/20 19:10 Globulin 3.4 gm/dl (2.5-4.0) 12/07/20 19:10 Albumin/Globulin Ratio 1.0 (0.9-2) 12/07/20 19:10 COVID-19 Eval Order Covid19 at [facility] 12/07/20 19:39 SARS-CoV-2 (PCR) NEGATIVE (Negative) 12/07/20 19:[address] 12/07/20 19:09 CT OF THE CERVICAL SPINE CLINICAL HISTORY: s/p fall COMPARISON STUDY: August 31, 2020 CT DOSE: TECHNIQUE: CT scan of the cervical spine was performed from the skull base to the thoracic inlet. Images are reviewed in the axial, sagittal, and coronal planes. IV contrast was not administered for this examination. A dose lowering technique was utilized adhering to the principles of ALARA. FINDINGS: The visualized portions of the lung apices reveal no evidence of pneumothorax. The prevertebral soft tissues are normal. No fractures or subluxations are visualized. Evaluation is limited due to diffuse severe osteopenia. Normal cervical lordosis is decreased. Vertebral body heights are maintained. Th ere is ACDF placement and disc spacer is seen at the C4-C5 level. Opacified fracture is extending to the central canal at the level of C5 and associated with central canal and left neural foraminal narrowing. Partial opacification of inferior aspect of the right and left mastoid air cells might represent mastoiditis. IMPRESSION: No definite acute fracture or traumatic malalignment. Limited exam due to osteopenia. ACDF is seen within C4-C5 level with disc spacer. Calcified structures the posterior aspect of C4-C5 show extension to the central canal associated with its narrowing. Similar findings were seen on prior study performed on August 31, 2020. Multilevel degenerative changes. Possible mastoiditis. ACT 112: Negative or not required by law. The above report was generated using voice recognition software. It may contain grammatical, syntax or spelling errors. Electronically signed by: Cecilia Kyle DO 12/07/2020 8:[address] 12/07/20 19:09 CT head/brain wo con CLINICAL HISTORY: s/p fall COMPARISON STUDY: September 04, 2020. TECHNIQUE: Axial CT of the brain is performed from the vertex to the skull base. IV contrast was not administered for this examination. A dose lowering technique was utilized adhering to the principles of ALARA. CT DOSE: FINDINGS: No intra or extra-axial mass lesions are visualized. There is no CT evidence of acute cortical infarction. There is no evidence of midline shift. There is no acute hemorrhage. No acute depressed calvarial fractures are visualized. There are patchy white matter hypodensities likely on a small vessel basis. Minimal atrophic changes of brain parenchyma are seen and associated with ex vacuo dilatation of ventricles. There is no evidence of acute sinusitis IMPRESSION: No acute intracranial hemorrhage, no midline shift or space occupying lesions. No acute depressed skull fractures. Chronic small vessel ischemia and atrophic changes of brain parenchyma. ACT 112: Negative or not required by law. The above report was generated using voice recognition software. It may contain grammatical, syntax or spelling errors. Electronically signed by: Cecilia Kyle DO 12/07/2020 8:16 PM Forearm X-Ray 12/07/20 19:11 XR forearm LT 2V CLINICAL HISTORY: pain post fall COMPARISON: None. DISCUSSION: The bones and joint spaces appear intact. There is no evidence of fracture, dislocation or bony disease. Mild diffuse soft tissue edema. Evaluation is slightly limited due to suboptimal positioning on the lateral view. IMPRESSION: As above. ACT 112: Negative or not required by law. The above report was generated using voice recognition software. It may contain grammatical, syntax or spelling errors. Electronically signed by: Cecilia Kyle DO 12/07/2020 8:14 PM Abdomen/Pelvis CT 12/07/20 19:18 CT SCAN OF THE ABDOMEN AND PELVIS WITHOUT CONTRAST CLINICAL HISTORY: syncope, h/o ascending TAA s/p repair, iodine jose carlos COMPARISON STUDY: November 11, 2020 TECHNIQUE: CT scan of the abdomen and pelvis was performed from the lung bases to the proximal femurs. Images are reviewed in the axial, sagittal, and coronal planes. IV contrast was not administered for this examination. A dose lowering technique was utilized adhering to the principles of ALARA. CT DOSE: 4013.27 mGy.cm FINDINGS: Lower chest: Please see report of the chest performed at the same time. Liver: The unenhanced liver is normal in size, contour, and attenuation. There is no intrahepatic biliary ductal dilatation. Gallbladder: Is surgically absent Spleen: Normal in size and attenuation. Pancreas: Normal appearance of the pancreas. Focal calcification are seen near distal aspect of the common bile duct. Common bile duct is nondilated. Adrenal glands: Unremarkable. Kidneys: The unenhanced kidneys are normal in size without hydronephrosis. There is no contour deforming renal mass lesion. No renal calculi are identified. Bowel: Esophageal ring is seen. Bowel loops are nondilated. Appendix is not well seen. Mild diverticulosis of sigmoid colon is seen without evidence of diverticulitis. Peritoneum: There is no intraperitoneal free air or abdominal ascites. Vasculature: Abdominal aorta is normal in caliber with scattered calcifications of its wall. Adenopathy: None. Pelvic viscera: Urinary bladder is adequately filled with urine. Prostate gland is diminished in size with few metallic densities which might represent seeds. Possible status post TURP. Skeletal structures: Osteopenia. Degenerative changes of the spine. Postlaminectomy changes and orthopedic hardware within lower lumbar spine, stable since prior. IMPRESSION: 1. No acute intra-abdominal process. Bowel loops are nondilated. Appendix is not well seen. 2. Calcified aorta. 3. Diverticulosis of sigmoid colon without evidence of diverticulitis. 4. Status post cholecystectomy. 5. The rest of findings as above. ACT 112: Negative or not required by law. The above report was generated using voice recognition software. It may contain grammatical, syntax or spelling errors. Electronically signed by: Cecilia Kyle DO 12/07/2020 8:[address] 12/07/20 19:18 CT chest diagnostic wo con CLINICAL HISTORY: syncope, h/o ascending TAA s/p repair, iodine jose carlos COMPARISON STUDY: November 11, 2020 CT DOSE: TECHNIQUE: CT of the thorax was performed from the thoracic inlet to the lung bases. Images are reviewed in the axial, sagittal, and coronal planes. IV contrast was not administered for this examination. A dose lowering technique was utilized adhering to the principles of ALARA. FINDINGS: There is no axillary, supra clavicle or internal mammary lymphadenopathy seen. Mediastinal lymph nodes are not enlarged. Thyroid gland is not well seen. Small hiatal hernia and gastric lap band is again seen. Thoracic aorta: Thoracic aorta is normal in caliber. Status post ascending aorta repair. Scattered calcifications are seen within aortic wall. Evaluation of aorta is limited due to lack of IV contrast. 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 Heart is normal in size. 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 Calcifications of the [place] coronary arteries. Coronary stents. Lungs and pleural spaces: Tracheobronchial tree is patent. Multifocal groundglass tree-in-bud opacities are seen within left lower lobe and right middle lobe. Possible atelectasis/scarring is seen within subpleural aspect of right lower lobe and right middle lobe. No pleural effusion is seen. Upper abdomen: Please see separate report of abdomen and pelvis performed at the same time. Skeletal structures: Multilevel degenerative changes of the spine. Sternotomy changes. IMPRESSION: 1. Normal size of ascending and descending aorta. Status post ascending aorta replacement. Evaluation is limited due to lack of IV contrast. 2. Multifocal tree-in-bud groundglass opacities are seen within lower lungs as detailed above and could represent infectious/inflammatory process. Please correlate above-mentioned findings with recent prior history and current presentation of pneumonia/infectious pulmonary process. Short-term follow-up in 4-6 weeks on nonemergency basis is recommended to document resolution. 3. Dilatation of the main pulmonary artery which could be seen in pulmonary hypertension. 4. The rest of findings as above. ACT 112: Positive. There are findings on this exam that require communication between the performing entity and the patient following Patient Test Result Information Act ([place] Act 112) guidelines. The above report was generated using voice recognition software. It may contain grammatical, syntax or spelling errors. Electronically signed by: Cecilia Kyle DO 12/07/2020 8:47 PM Supervising Physician Co-Signing Physician Notes Patient seen and examined, chart reviewed, case discussed with Dr. Seay and I agree with her assessment and plan as documented above. In brief, patient is a 75-year-old male with multiple medical problems most notably coronary artery disease, aortic valve replacement, CKD, paroxysmal atrial fibrillation, seizure disorder presenting after a syncopal event at home. Patient was reportedly doing dishes in the kitchen when he had a syncopal event, striking the left side of his face on the counter. Overall, he demonstrates concern for failure to thrivelives at home alone. Has some difficulty preparing meals for himself. Reports decreased oral intake as well as depression. In the ER he is afebrile, hemodynamically stable, no acute distress. He did have a 15 beat run of monomorphic VT which was asymptomatic. On exam he is afebrile, hemodynamically stable Alert to self however, slow to respond and more confused than prior encounters Skinwarm, dry, intact Heart+ S1/S2, regular with ectopy, midsystolic click LungsCTA, no rales/rhonchi/wheezes Abdomenpositive bowel sounds, soft, nontender, nondistended Extremitieswarm, well-perfused, no clubbing/cyanosis/edema Labs and images reviewed Assessment/[id number] male with multiple medical problems presenting after syncopal event at home. Patient with seizure disorder as well as coronary artery disease, CHF and atrial fibrillation. Had a run of nonsustained monomorphic VT while in the ER. Concern for seizure versus cardiogenic syncope Telemetry monitoring Check troponin Optimize electrolytes PT/OT evaluation Should patient have additional VT will initiate amiodarone Remainder of plan as above Resident Activity Tracking Resident Involvement: Resident Care Provided Care Provided: Adult [facility] (1) Diabetes Diabetes mellitus complication detail: with polyneuropathy Diabetes mellitus complication status: with neurologic complications Diabetes mellitus terminal supervisor insulin use: with terminal supervisor use Diabetes mellitus type: type 2 Qualified Code(s): E11.42 - Type 2 diabetes mellitus with diabetic polyneuropathy; 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 transplanted heart: [place] heart Qualified Code(s): I25.10 - Atherosclerotic heart disease of [place] coronary artery without angina pectoris (3) Parkinsonism Parkinsonism type: unspecified Qualified Code(s): G20 - Parkinson's disease
[2020-12-08] MEDS ORDERED: ALBUTEROL HFA 8 GM INHALER INH PRN (00:05)
[2020-12-08] MEDS ORDERED: LACTATED RINGER'S 1,000 ML IV SCH (00:05)
[2020-12-08] MEDS ORDERED: oxyCODONE HCL IR 5 MG TAB (IMMEDIATE RELEASE) PO PRN (00:05)
[2020-12-08] MEDS ORDERED: POLYETHYLENE (MIRALAX) 17 GM PACK PO PRN (00:05)
[2020-12-08] MEDS ORDERED: GLUCOSE 10 TABS/TUBE PO PRN (00:05)
[2020-12-08] MEDS ORDERED: DEXTROSE 50% 50 ML SYRINGE IV PRN (00:05)
[2020-12-08] MEDS ORDERED: GLUCOSE 40% GEL 15 GM TUBE PO PRN (00:05)
[2020-12-08] MEDS ORDERED: CARBOHYDRATES FOR HYPOGLYCEMIA PO PRN (00:05)
[2020-12-08] MEDS ORDERED: ONDANSETRON INJ 2 MG/ML 2 ML VIAL IV PRN (00:05)
[2020-12-08] MEDS ORDERED: GLUCAGON FOR INJ 1 MG VIAL SQ PRN (00:05)
[2020-12-08] MEDS ORDERED: metHOTREXate sodium 2.5 MG TAB PO SCH (00:05)
[2020-12-08] MEDS ORDERED: MAGNESIUM SULFATE / D5W 1 GM/100 ML BAG IV ONE (00:15)
[2020-12-08] MEDS ORDERED: ACETAMINOPHEN 325 MG TAB ONE (00:32)
[2020-12-08] MEDS: INSULIN ASPART 100 UNITS/ML 3 ML PEN SC SCH ×5 (01:21→19:43)
[2020-12-08 04:23] LABS: Basophils # (auto) 0.01 K/uL (0-0.2); Basophils % (auto) 0.2 %; Eosinophils % (auto) 3.4 %; Hemoglobin 10.1 g/dL (14.0-18.0); Immature Granulocytes # (auto) 0.06 K/uL (0.00-0.02); Lymphocytes # (auto) 1.41 K/uL (1.2-3.4); Lymphocytes % (auto) 23.9 %; Mean Corpuscular Hemoglobin 25.8 pg (25-34); Mean Corpuscular Hgb Conc 31.6 g/dL (32-36); Mean Corpuscular Volume 81.8 fL (80-100); Mean Platelet Volume 9.7 fL (7.4-10.4); Monocytes # (auto) 0.31 K/uL (0.11-0.59); Monocytes % (auto) 5.3 %; Neutrophils % (auto) 66.2 %; Platelet Count 155 K/uL (130-400); RDW Coefficient of Variation 15.8 % (11.5-14.5); RDW Standard Deviation 47.3 fL (36.4-46.3); Red Blood Count 3.91 M/uL (4.7-6.1); White Blood Count 5.89 K/uL (4.8-10.8)
--- NOTE | 2020-12-08 04:49 | Billing Data ---
Date of Service December 07, 2020 Coding Level of Care Code INT OBSERVATION CARE 50M LVL 2
[2020-12-08 04:58] LABS: BUN Creatinine Ratio 31.8 (10-20); Blood Urea Nitrogen 40 mg/dl (7-18); Calcium 8.6 mg/dl (8.5-10.1); Carbon Dioxide 26 mmol/L (21-32); Chloride 110 mmol/L (98-107); Creatinine Clr Calc Pharmacy 57.5 ml/min; Est GFR (African American) 63.6 ml/min; Est GFR (Non-African American) 54.9 ml/min; Glucose 182 mg/dl (70-99); Magnesium 2.6 mg/dl (1.8-2.4); Phosphorus 3.2 mg/dl (2.5-4.9); Sodium 138 mmol/L (136-145); Troponin I < 0.015 ng/ml (0-0.045)
[2020-12-08 05:07] LABS: Potassium 3.5 mmol/L (3.5-5.1)
[2020-12-08] MEDS ORDERED: POTASSIUM CHLORIDE CRTAB 20 MEQ TABCR PO ONE (09:00)
[2020-12-08] MEDS ORDERED: TORSEMIDE 20 MG TAB PO SCH (09:00)
[2020-12-08] MEDS: ASPIRIN 81 MG ECTAB PO SCH (09:33)
[2020-12-08] MEDS: CARBIDOPA/LEVODOPA 25/100MG TAB PO SCH ×3 (09:33→19:39)
[2020-12-08] MEDS: DOCUSATE SODIUM 100 MG CAP PO SCH ×2 (09:35→19:38)
[2020-12-08] MEDS: FAMOTIDINE 20 MG TAB PO SCH ×2 (09:35→19:40)
[2020-12-08] MEDS: guaiFENesin 600 MG TABCR PO SCH ×2 (09:36→19:40)
[2020-12-08] MEDS: GABAPENTIN 300 MG CAP PO SCH ×2 (09:36→19:38)
[2020-12-08] MEDS: FUROSEMIDE 20 MG TAB PO SCH (09:36)
[2020-12-08] MEDS: INSULIN GLARGINE SOLOSTAR 100 UNITS/ML 3 ML PEN SQ SCH ×2 (09:37→19:43)
[2020-12-08] MEDS: predniSONE 10 MG TABLET PO SCH (09:38)
[2020-12-08] MEDS: SENNA 8.6 MG TAB PO SCH (09:38)
[2020-12-08] MEDS: PANTOprazole 40 MG TAB PO SCH ×2 (09:38→19:39)
[2020-12-08] MEDS: levETIRAcetam 500 MG TAB PO SCH ×2 (09:38→19:40)
[2020-12-08] MEDS: UMECLIDINIUM/VILANTEROL 62.5/25MCG 7 PUFFS/INHALER INH SCH (09:39)
[2020-12-08] MEDS: TOPIRAMATE 100 MG TAB PO SCH ×2 (09:39→19:40)
[2020-12-08] MEDS: SPIRONOLACTONE 25 MG TAB PO SCH (09:39)
[2020-12-08] MEDS: SUCRALFATE 1 GM TAB PO SCH ×4 (09:39→19:38)
--- NOTE | 2020-12-08 10:00 | Medical Student Progress Note ---
Date of Service December 08, 2020 Assessment & Plan (1) Syncopal episodes: Plan: Mr. Bradford is a 75 yo M with a history of non-epileptic seizure disorder and heart disease who was brought in by EMS after a syncopal episode yesterday. He is currently in no acute distress and asymptomatic. -Patient unable to recall event or any prodromal symptoms -Possible syncopal etiologies: -Cardiac origin is certainly possible given history of heart disease, AFib, and observed run of v-tach while in the emergency department. -Continue cardiac monitoring with likely discharge on 30d event monitor -Continue trending electrolytes. Replete as needed -(-)Tropinins x 2 -Neurogenic syncope is possible given Hx of non-epileptic seizure disorder, and confusion upon arrival of EMS -Recent 48 hour EEG at [facility] [place] was ultimately negative -Continue home anti-epileptics -Malnutrition/Deconditioning/Mechanical given decreased appetite and food intake and old age, though electrolytes WNL -FEES ordered through speech therapy; currently on minced & moist diet due to severe oropharyngeal dysphagia -Nutrition consult ordered -PT/OT consult due to possibility of mechanical fall -Fortunately imaging all negative for acute injury -Neuro checks q4 hour given fall on Coumadin -PT/OT recommend short-term rehab -Case management consulted; given frequency in hospitalizations, deconditioning at home, and fall risk, we also agree that the patient is not safe to go home alone right now -Spoke with son, Moses, when seeing the patient; lives next door and would like to be kept in the loop regarding his care; agrees that rehab would be best currently (2) Depression: Plan: -Likely a contributor to his decreased appetite -Has a scheduled telehealth appointment with a psych on that will likel y have to be rescheduled -Would likely benefit from an anti-depressant (3) Chronic kidney disease, stage 3a: Plan: - creatinine at 1.27 (1.49: 8/10), BUN at 40 (45: 8/10) - baseline Cr 1.1 - suspect pre-renal etiology, as patient reported diminished PO intake - LR at 100mls/hr - trend BMP (4) Diabetes: Plan: - A1c 7.4 from 10/12/20 - continue home lantus insulin + sliding scale ordered - Trulicity every Sunday - Carb Consistent Diet; minced & moist - Continue high intensity statin Diabetes mellitus complication detail: with polyneuropathy Diabetes mellitus complication status: with neurologic complications Diabetes mellitus jail insulin use: with jail use Diabetes mellitus type: type 2 Qualified Code(s): E11.42 - Type 2 diabetes mellitus with diabetic polyneuropathy; Z79.4 - prison (current) use of insulin (5) Hypoalbuminemia: Plan: - Albumin low at 3.3 - Likely secondary to reduced PO intake/failure to thrive - Boost supplements ordered (6) CAD (coronary artery disease): Plan: - continue ASA + atorvasatin Associated angina: without angina Coronary Disease-Associated Artery/Lesion type: [place] artery [place] vs. transplanted heart: [place] heart Qualified Code(s): I25.10 - Atherosclerotic heart disease of [place] coronary artery without angina pectoris (7) Parkinsonism: Plan: - continue home dose sinemet Parkinsonism type: unspecified Qualified Code(s): G20 - Parkinson's disease (8) Rheumatoid arthritis: Plan: - continue weekly methotrexate and daily prednisone (9) Gout: Plan: - continue home dose allopurinol DVT ppx: On Coumadin Diet: Carb Consistent DM2; minced and moist, aspiration precautions Dispo: PCU/tele Code: Full Admission and Anticipated Discharge Date Admission Date: December 07, 2020 Supervising Attestation Patient seen and examined with MS-4 Delia Carrillo. Agree with history, exam findings, assessment and plan of care as outlined. In brief, Mr. Bradford is a 75 year old male with h/o non-epileptic seizures who is admitted after a syncopal episode. He does not remember his fall or any prodromal symptoms but has since been feeling relatively well. Does report worsening weakness as of the past few months, especially associated to his recurrent bouts of pneumonia. Vital signs and nursing notes reviewed. A&Ox4. Neuro exam non-focal without deficits. Respiratory effort is normal and he is clear to auscultation. 1. Syncope: cardiac vs. neurogenic vs. malnutrition/deconditioning. Cardiac monitoring normal so far in hospital except for a single 13-beat run of vtach in ED (asymptomatic). May benefit from event monitor as an outpatient. Deconditioning likely a large contributor. PT agrees that he is likely to require rehab stay. 2. Protein-Calorie malnutrition: Likely significant part of his deconditioning possibly leading to the syncopal episode/fall. Dietary consultappreciate recommendations. 3. Depression: likely a significant contributor to his lack of appetite and subsequent malnutrition/deconditioning 4. Dysphagia/aspiration. Appreciate speech recommendations. May consider palliative in the future to continue discussion regarding risks/benefits of food for pleasure/aspiration risk. 5. Diabetes: Holding trulicity. On sliding scale insulin. Dispo: Will likely require inpatient rehab vs SNF Subjective Overall, Mr. Bradford says he's doing okay. He is lying comfortably in bed and only complaining of a headache with photophobia. He also speaks about being confused, not knowing the year or the specific date. When trying to obtain a bit more information regarding his fall, he just does not remember anything besides hitting is head. He says he's been having a decreased appetite for "a while now" and just doesn't eat much, maybe having oatmeal, a protein shake, and chicken salad every now and then. Mr. Bradford lives alone and receives home health services 3x/week, but says he will have to cut it back because it costs too much money. He also speaks about being open to seeing a therapist and was looking forward to his telehealth appointment tomorrow, but is not open to doing it if in the hospital due to lack of privacy. Patient is not endorsing any chest pain, palpitations, shortness of breath, nausea, vomiting or dizziness. Review of Systems Review of Systems: All systems reviewed & are unremarkable except as noted in Subjective Physical Exam Constitutional: WD/WN, vitals as above comfortable Eyes: + anicteric sclerae Neck: trachea midline Respiratory: normal respiratory effort, lungs clear to auscultation + cough (mild) Cardiovascular: Rate/Rhythm: regular rate Heart Sounds: normal S1, normal S2 and + abnormal opening sounds (systolic ejection click) Extremities: no pedal edema Gastrointestinal (Abdomen): normal bowel sounds, soft, nontender, no hepatosp lenomegaly Musculoskeletal: Head/Neck/Chest: normocephalic and head atraumatic Skin: no rashes, warm and dry Neurologic: moves all extremities and + confused Speech / Cognition: normal speech Cranial Nerves: no nystagmus; + abnormal accommodation and + EOM not intact Psychiatric: Orientation: alert, oriented to person, oriented to place and cooperative; + not oriented to time Results & Data ([facility]) Vital Signs (Past 12 Hours) Vital Signs Temp Pulse Pulse Resp BP BP Pulse Ox 12/08/20 08:12 36.4 C L 60 20 122/71 95 12/08/20 07:53 57 L 12/08/20 04:00 36.4 C L 62 18 105/70 94 12/08/20 00:03 36.5 C 57 L 18 137/75 97 12/07/20 22:47 69 18 12/07/20 22:30 66 16 111/69 95 12/07/20 22:15 70 17 110/58 L 97 12/07/20 22:00 64 13 95 Laboratory Results Laboratory Results WBC 5.89 K/uL (4.8-10.8) 12/08/20 04:09 RBC 3.91 M/uL (4.7-6.1) L 12/08/20 04:09 Hgb 10.1 g/dL (14.0-18.0) L 12/08/20 04:09 Hct 32.0 % (42-52) L 12/08/20 04:09 MCV 81.8 fL (80-100) 12/08/20 04:09 MCH 25.8 pg (25-34) 12/08/20 04:09 MCHC 31.6 g/dL (32-36) L 12/08/20 04:09 RDW Std Deviation 47.3 fL (36.4-46.3) H 12/08/20 04:09 RDW Coeff of Lianne 15.8 % (11.5-14.5) H 12/08/20 04:09 Plt Count 155 K/uL (130-400) 12/08/20 04:09 MPV 9.7 fL (7.4-10.4) 12/08/20 04:09 Immature Gran % (Auto) 1.0 % 12/08/20 04:09 Neut % (Auto) 66.2 % 12/08/20 04:09 Lymph % (Auto) 23.9 % 12/08/20 04:09 Nuckolls % (Auto) 5.3 % 12/08/20 04:09 Eos % (Auto) 3.4 % 12/08/20 04:09 Baso % (Auto) 0.2 % 12/08/20 04:09 Neut # (Auto) 3.90 K/uL (1.4-6.5) 12/08/20 04:09 Lymph # (Auto) 1.41 K/uL (1.2-3.4) 12/08/20 04:09 [place]uckolls # (Auto) 0.31 K/uL (0.11-0.59) 12/08/20 04:09 Eos # (Auto) 0.20 K/uL (0-0.5) 12/08/20 04:09 Baso # (Auto) 0.01 K/uL (0-0.2) 12/08/20 04:09 Immature Gran # (Auto) 0.06 K/uL (0.00-0.02) H 12/08/20 04:09 PT 24.5 Seconds (9.0-12.0) H 12/07/20 19:10 INR 2.6 (0.9-1.1) H 12/07/20 19:10 Sodium 138 mmol/L (136-145) 12/08/20 04:09 Potassium 3.5 mmol/L (3.5-5.1) D 12/08/20 04:09 Chloride 110 mmol/L (98-107) H 12/08/20 04:09 Carbon Dioxide 26 mmol/L (21-32) 12/08/20 04:09 Anion Gap 2.0 (3-11) L 12/08/20 04:09 BUN 40 mg/dl (7-18) H 12/08/20 04:09 Creatinine 1.27 mg/dl (0.6-1.4) 12/08/20 04:09 Est Cr Clr Drug Dosing 57.5 ml/min 12/08/20 04:09 Est GFR ( Amer) 63.6 ml/min 12/08/20 04:09 Est GFR (Non-Af Amer) 54.9 ml/min 12/08/20 04:09 BUN/Creatinine Ratio 31.8 (10-20) H 12/08/20 04:09 Glucose 182 mg/dl (70-99) H 12/08/20 04:09 POC Glucose 197 mg/dl (70-99) H 12/08/20 11:44 Calcium 8.6 mg/dl (8.5-10.1) 12/08/20 04:09 Phosphorus 3.2 mg/dl (2.5-4.9) 12/08/20 04:09 Magnesium 2.6 mg/dl (1.8-2.4) H 12/08/20 04:09 Total Bilirubin 0.3 mg/dl (0.2-1) 12/07/20 19:10 AST 32 U/L (15-37) 12/07/20 19:10 ALT 38 U/L (12-78) 12/07/20 19:10 Alkaline Phosphatase 103 U/L (45-117) 12/07/20 19:10 Troponin I < 0.015 ng/ml (0-0.045) 12/08/20 10:15 Total Protein 6.7 gm/dl (6.4-8.2) 12/07/20 19:10 Albumin 3.3 gm/dl (3.4-5.0) L 12/07/20 19:10 Globulin 3.4 gm/dl (2.5-4.0) 12/07/20 19:10 Albumin/Globulin Ratio 1.0 (0.9-2) 12/07/20 19:10 Procalcitonin 0.24 ng/ml (0-0.5) 12/08/20 10:15 COVID-19 Eval Order Covid19 at [facility] 12/07/20 19:39 SARS-CoV-2 (PCR) NEGATIVE (Negative) 12/07/20 19:[address] 12/07/20 19:09 CT OF THE CERVICAL SPINE CLINICAL HISTORY: s/p fall COMPARISON STUDY: August 31, 2020 CT DOSE: TECHNIQUE: CT scan of the cervical spine was performed from the skull base to the thoracic inlet. Images are reviewed in the axial, sagittal, and coronal planes. IV contrast was not administered for this examination. A dose lowering technique was utilized adhering to the principles of ALARA. FINDINGS: The visualized portions of the lung apices reveal no evidence of pneumothorax. The prevertebral soft tissues are normal. No fractures or subluxations are visualized. Evaluation is limited due to diffuse severe osteopenia. Normal cervical lordosis is decreased. Vertebral body heights are maintained. There is ACDF placement and disc spacer is seen at the C4-C5 level. Opacified fracture is extending to the central canal at the level of C5 and associated with central canal and left neural foraminal narrowing. Partial opacification of inferior aspect of the right and left mastoid air cells might represent mastoiditis. IMPRESSION: No definite acute fracture or traumatic malalignment. Limited exam due to osteopenia. ACDF is seen within C4-C5 level with disc spacer. Calcified structures the posterior aspect of C4-C5 show extension to the central canal associated with its narrowing. Similar findings were seen on prior study performed on August 31, 2020. Multilevel degenerative changes. Possible mastoiditis. ACT 112: Negative or not required by law. The above report was generated using voice recognition software. It may contain grammatical, syntax or spelling errors. Electronically signed by: Cecilia Kyle DO 12/07/2020 8:[address] 12/07/20 19:09 CT head/brain wo con CLINICAL HISTORY: s/p fall COMPARISON STUDY: September 04, 2020. TECHNIQUE: Axial CT of the brain is performed from the vertex to the skull base. IV contrast was not administered for this examination. A dose lowering technique was utilized adhering to the principles of ALARA. CT DOSE: FINDINGS: No intra or extra-axial mass lesions are visualized. There is no CT evidence of acute cortical infarction. There is no evidence of midline shift. There is no acute hemorrhage. No acute depressed calvarial fractures are visualized. There are patchy white matter hypodensities likely on a small vessel basis. Minimal atrophic changes of brain parenchyma are seen and associated with ex vacuo dilatation of ventricles. There is no evidence of acute sinusitis IMPRESSION: No acute intracranial hemorrhage, no midline shift or space occupying lesions. No acute depressed skull fractures. Chronic small vessel ischemia and atrophic changes of brain parenchyma. ACT 112: Negative or not required by law. The above report was generated using voice recognition software. It may contain grammatical, syntax or spelling errors. Electronically signed by: Cecilia Kyle DO 12/07/2020 8:16 PM Forearm X-Ray 12/07/20 19:11 XR forearm LT 2V CLINICAL HISTORY: pain post fall COMPARISON: None. DISCUSSION: The bones and joint spaces appear intact. There is no evidence of fracture, dislocation or bony disease. Mild diffuse soft tissue edema. Evaluation is slightly limited due to suboptimal positioning on the lateral view. IMPRESSION: As above. ACT 112: Negative or not required by law. The above report was generated using voice recognition software. It may contain grammatical, syntax or spelling errors. Electronically signed by: Cecilia Kyle DO 12/07/2020 8:14 PM Abdomen/Pelvis CT 12/07/20 19:18 CT SCAN OF THE ABDOMEN AND PELVIS WITHOUT CONTRAST CLINICAL HISTORY: syncope, h/o ascending TAA s/p repair, iodine jose carlos COMPARISON STUDY: November 11, 2020 TECHNIQUE: CT scan of the abdomen and pelvis was performed from the lung bases to the proximal femurs. Images are reviewed in the axial, sagittal, and coronal planes. IV contrast was not administered for this examination. A dose lowering technique was utilized adhering to the principles of ALARA. CT DOSE: 4013.27 mGy.cm FINDINGS: Lower chest: Please see report of the chest performed at the same time. Liver: The unenhanced liver is normal in size, contour, and attenuation. There is no intrahepatic biliary ductal dilatation. Gallbladder: Is surgically absent Spleen: Normal in size and attenuation. Pancreas: Normal appearance of the pancreas. Focal calcification are seen near distal aspect of the common bile duct. Common bile duct is nondilated. Adrenal glands: Unremarkable. Kidneys: The unenhanced kidneys are normal in size without hydronephrosis. There is no contour deforming renal mass lesion. No renal calculi are identified. Bowel: Esophageal ring is seen. Bowel loops are nondilated. Appendix is not well seen. Mild diverticulosis of sigmoid colon is seen without evidence of diverticulitis. Peritoneum: There is no intraperitoneal free air or abdominal ascites. Vasculature: Abdominal aorta is normal in caliber with scattered calcifications of its wall. Adenopathy: None. Pelvic viscera: Urinary bladder is adequately filled with urine. Prostate gland is diminished in size with few metallic densities which might represent seeds. Possible status post TURP. Skeletal structures: Osteopenia. Degenerative changes of the spine. Postlaminectomy changes and orthopedic hardware within lower lumbar spine, stable since prior. IMPRESSION: 1. No acute intra-abdominal process. Bowel loops are nondilated. Appendix is not well seen. 2. Calcified aorta. 3. Diverticulosis of sigmoid colon without evidence of diverticulitis. 4. Status post cholecystectomy. 5. The rest of findings as above. ACT 112: Negative or not required by law. The above report was generated using voice recognition software. It may contain grammatical, syntax or spelling errors. Electronically signed by: Cecilia Kyle DO 12/07/2020 8:[address] 12/07/20 19:18 CT chest diagnostic wo con CLINICAL HISTORY: syncope, h/o ascending TAA s/p repair, iodine jose carlos COMPARISON STUDY: November 11, 2020 CT DOSE: TECHNIQUE: CT of the thorax was performed from the thoracic inlet to the lung bases. Images are reviewed in the axial, sagittal, and coronal planes. IV contrast was not administered for this examination. A dose lowering technique was utilized adhering to the principles of ALARA. FINDINGS: There is no axillary, supra clavicle or internal mammary lymphadenopathy seen. Mediastinal lymph nodes are not enlarged. Thyroid gland is not well seen. Small hiatal hernia and gastric lap band is again seen. Thoracic aorta: Thoracic aorta is normal in caliber. Status post ascending aorta repair. Scattered calcifications are seen within aortic wall. Evaluation of aorta is limited due to lack of IV contrast. 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 Heart is normal in size. 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 Calcifications of the [place] coronary arteries. Coronary stents. Lungs and pleural spaces: Tracheobronchial tree is patent. Multifocal groundglass tree-in-bud opacities are seen within left lower lobe and right middle lobe. Possible atelectasis/scarring is seen within subpleural aspect of right lower lobe and right middle lobe. No pleural effusion is seen. Upper abdomen: Please see separate report of abdomen and pelvis performed at the same time. Skeletal structures: Multilevel degenerative changes of the spine. Sternotomy changes. IMPRESSION: 1. Normal size of ascending and descending aorta. Status post ascending aorta replacement. Evaluation is limited due to lack of IV contrast. 2. Multifocal tree-in-bud groundglass opacities are seen within lower lungs as detailed above and could represent infectious/inflammatory process. Please correlate above-mentioned findings with recent prior history and current presentation of pneumonia/infectious pulmonary process. Short-term follow-up in 4-6 weeks on nonemergency basis is recommended to document resolution. 3. Dilatation of the main pulmonary artery which could be seen in pulmonary hypertension. 4. The rest of findings as above. ACT 112: Positive. There are findings on this exam that require communication between the performing entity and the patient following Patient Test Result Information Act ([place] Act 112) guidelines. The above report was generated using voice recognition software. It may contain grammatical, syntax or spelling errors. Electronically signed by: Cecilia Kyle DO 12/07/2020 8:47 PM Medications Administered Current Inpatient Medications Acetaminophen (Acetaminophen 325 Mg Tab) 650 mg PO Q4H PRN PRN Reason: Pain or Fever Stop: 01/07/21 00:04 Last Admin: 12/08/20 12:40 Dose: 650 mg Documented by: Albuterol (Albuterol Hfa 8 Gm Inhaler) 2 puffs INH Q4H PRN PRN Reason: Wheezing Stop: 01/07/21 00:04 Allopurinol (Allopurinol 100 Mg Tab) 100 mg PO HS KIRSTEN Stop: 01/07/21 20:59 Aspirin (Aspirin 81 Mg Ectab) 81 mg PO QAM KIRSTEN Stop: 01/07/21 08:59 Last Admin: 12/08/20 09:33 Dose: 81 mg Documented by: Atorvastatin Calcium (Atorvastatin 40 Mg Tab) 40 mg PO HS KIRSTEN Stop: 01/07/21 20:59 Carbidopa/Levodopa (Carbidopa/Levodopa 25/100mg Tab) 0.5 tab PO TID KIRSTEN Stop: 01/07/21 08:59 Last Admin: 12/08/20 09:33 Dose: 0.5 tab Documented by: Dextrose (Dextrose 50% 50 Ml Syringe) 25 - 50 ml IV UD PRN; Protocol PRN Reason: Hypoglycemia Protocol Stop: 01/07/21 00:04 Docusate Sodium (Docusate Sodium 100 Mg Cap) 100 mg PO BID KIRSTEN Stop: 01/07/21 08:59 Last Admin: 12/08/20 09:35 Dose: 100 mg Documented by: Famotidine (Famotidine 20 Mg Tab) 20 mg PO BID KIRSTEN Stop: 01/07/21 08:59 Last Admin: 12/08/20 09:35 Dose: 20 mg Documented by: Furosemide (Furosemide 20 Mg Tab) 20 mg PO DAILY KIRSTEN Stop: 01/07/21 08:59 Last Admin: 12/08/20 09:36 Dose: 20 mg Documented by: Gabapentin (Gabapentin 300 Mg Cap) 600 mg PO BID KIRSTEN Stop: 01/07/21 08:59 Last Admin: 12/08/20 09:36 Dose: 600 mg Documented by: Glucagon (Glucagon For Inj 1 Mg Vial) 1 mg SQ UD PRN; Protocol PRN Reason: Hypoglycemia Protocol Stop: 01/07/21 00:04 Glucose (Glucose 10 Tabs/Tube) 4 - 8 tabs PO UD PRN; Protocol PRN Reason: Hypoglycemia Protocol Stop: 01/07/21 00:04 Glucose (Glucose 40% Gel 15 Gm Tube) 15 - 30 gm PO UD PRN; Protocol PRN Reason: Hypoglycemia Protocol Stop: 01/07/21 00:04 Guaifenesin (Guaifenesin 600 Mg Tabcr) 600 mg PO Q12 KIRSTEN Stop: 01/07/21 08:59 Last Admin: 12/08/20 09:36 Dose: 600 mg Documented by: Potassium Chloride 20 meq/ (Lactated Ringer's) 1,010 mls @ 100 mls/hr IV .Q10H6M KIRSTEN Stop: 12/09/20 04:11 Last Admin: 12/08/20 10:36 Dose: 100 mls/hr Documented by: Insulin Aspart (Insulin Aspart 100 Units/Ml 3 Ml Pen) 0 units SC ACHS KIRSTEN Stop: 01/07/21 00:59 Last Admin: 12/08/20 12:38 Dose: 3 units Documented by: Insulin Glargine (Insulin Glargine Solostar 100 Units/Ml 3 Ml Pen) 20 units SQ BID KIRSTEN Stop: 01/07/21 08:59 Last Admin: 12/08/20 09:37 Dose: 20 units Documented by: Levetiracetam (Levetiracetam 500 Mg Tab) 1,000 mg PO BID KIRSTEN Stop: 01/07/21 08:59 Last Admin: 12/08/20 09:38 Dose: 1,000 mg Documented by: Methotrexate (Methotrexate Sodium 2.5 Mg Tab) 15 mg PO WK KIRSTEN Stop: 01/07/21 00:04 Miscellaneous (Carbohydrates For Hypoglycemia ) 15 - 30 gm PO UD PRN PRN Reason: Hypoglycemia Protocol Stop: 01/07/21 00:04 Multivitamins/Minerals (Cerovite Adv Formula Tab) 1 tab PO HS [facility] Stop: 01/07/21 20:59 Ondansetron HCl (Ondansetron Inj 2 Mg/Ml 2 Ml Vial) 4 mg IV Q6H PRN PRN Reason: Nausea Stop: 01/07/21 00:04 Oxycodone HCl (Oxycodone Hcl Ir 5 Mg Tab (Immediate Release)) 5 mg PO Q6H PRN PRN Reason: pain Stop: 12/22/20 00:04 Pantoprazole Sodium (Pantoprazole 40 Mg Tab) 40 mg PO BID KIRSTEN Stop: 01/07/21 08:59 Last Admin: 12/08/20 09:38 Dose: 40 mg Documented by: Polyethylene Glycol (Polyethylene (Miralax) 17 Gm Pack) 17 gm PO DAILY PRN PRN Reason: Constipation Stop: 01/07/21 00:04 Prednisone (Prednisone 10 Mg Tablet) 10 mg PO DAILY KIRSTEN Stop: 01/07/21 08:59 Last Admin: 12/08/20 09:38 Dose: 10 mg Documented by: Sennosides (Senna 8.6 Mg Tab) 8.6 mg PO QAM [facility] Stop: 01/07/21 08:59 Last Admin: 12/08/20 09:38 Dose: 8.6 mg Documented by: Spironolactone (Spironolactone 25 Mg Tab) 25 mg PO DAILY KIRSTEN Stop: 01/07/21 08:59 Last Admin: 12/08/20 09:39 Dose: 25 mg Documented by: Sucralfate (Sucralfate 1 Gm Tab) 1 gm PO QID KIRSTEN Stop: 01/07/21 08:59 Last Admin: 12/08/20 12:39 Dose: 1 gm Documented by: Topiramate (Topiramate 100 Mg Tab) 100 mg PO BID KIRSTEN Stop: 01/07/21 08:59 Last Admin: 12/08/20 09:39 Dose: 100 mg Documented by: Umeclidinium/Vilanterol (Umeclidinium/Vilanterol 62.5/25mcg 7 Puffs/Inhaler) 1 puffs INH QAM KIRSTEN Stop: 01/07/21 08:59 Last Admin: 12/08/20 09:39 Dose: 1 puffs Documented by: Vitamin D (Cholecalciferol 1,000 Units 25 Mcg Tab) 2,000 units PO HS [facility] Stop: 01/07/21 20:59 Warfarin Sodium (Warfarin Sod 7.5 Mg Tab) 7.5 mg PO DAILY@1600 [facility] Stop: 01/07/21 15:59
[2020-12-08] MEDS: POTASSIUM CHLORIDE 20 MEQ in LACTATED RINGER'S 1,000 ML IV SCH ×2 (10:36→19:38)
[2020-12-08] MEDS: ACETAMINOPHEN 325 MG TAB PO PRN ×2 (12:40→22:03)
--- NOTE | 2020-12-08 13:54 | Electrocardiogram Report ---
Test Reason : Blood Pressure : / mmHG Vent. Rate : 076 BPM Atrial Rate : 076 BPM P-R Int : 144 ms QRS Dur : 084 ms QT Int : 394 ms P-R-T Axes : 038 032 079 degrees QTc Int : 443 ms Sinus rhythm with Premature atrial complexes Nonspecific ST abnormality Otherwise normal ECG When compared with ECG of 24-NOV-2020 12:28, No significant change was found Confirmed by Cody Soto [id number]) on 12/08/2020 1:54:24 PM Referred By: REFERRED SELF Confirmed By:Wyatt Soto
[2020-12-08] MEDS ORDERED: WARFARIN SOD 7.5 MG TAB PO SCH (16:00)
[2020-12-08] MEDS: ATORVASTATIN 40 MG TAB PO SCH (19:38)
[2020-12-08] MEDS: CEROVITE ADV FORMULA TAB PO SCH (19:38)
[2020-12-08] MEDS: CHOLECALCIFEROL 1,000 UNITS 25 MCG TAB PO SCH (19:39)
[2020-12-08] MEDS: allopurinoL 100 MG TAB PO SCH (19:40)
[2020-12-09] MEDS: PANTOprazole 40 MG TAB PO SCH ×2 (08:14→19:48)
[2020-12-09] MEDS: FAMOTIDINE 20 MG TAB PO SCH ×2 (08:15→19:50)
[2020-12-09] MEDS: SUCRALFATE 1 GM TAB PO SCH ×4 (08:16→19:50)
[2020-12-09] MEDS: levETIRAcetam 500 MG TAB PO SCH ×2 (08:16→19:49)
[2020-12-09] MEDS: SENNA 8.6 MG TAB PO SCH (08:16)
[2020-12-09] MEDS: TOPIRAMATE 100 MG TAB PO SCH ×2 (08:16→19:47)
[2020-12-09] MEDS: FUROSEMIDE 20 MG TAB PO SCH (08:16)
[2020-12-09] MEDS: DOCUSATE SODIUM 100 MG CAP PO SCH ×2 (08:16→19:50)
[2020-12-09] MEDS: SPIRONOLACTONE 25 MG TAB PO SCH (08:17)
[2020-12-09] MEDS: CARBIDOPA/LEVODOPA 25/100MG TAB PO SCH ×3 (08:17→19:49)
[2020-12-09] MEDS: guaiFENesin 600 MG TABCR PO SCH ×2 (08:18→19:47)
[2020-12-09] MEDS: ASPIRIN 81 MG ECTAB PO SCH (08:18)
[2020-12-09] MEDS: predniSONE 10 MG TABLET PO SCH (08:18)
[2020-12-09] MEDS: GABAPENTIN 300 MG CAP PO SCH ×2 (08:18→19:48)
[2020-12-09] MEDS: UMECLIDINIUM/VILANTEROL 62.5/25MCG 7 PUFFS/INHALER INH SCH (08:19)
[2020-12-09] MEDS: INSULIN ASPART 100 UNITS/ML 3 ML PEN SC SCH ×4 (08:22→19:51)
[2020-12-09] MEDS: INSULIN GLARGINE SOLOSTAR 100 UNITS/ML 3 ML PEN SQ SCH ×2 (08:25→19:52)
[2020-12-09 09:11] LABS: INR 1.8 (0.9-1.1); Prothrombin Time 17.4 Seconds (9.0-12.0)
--- NOTE | 2020-12-09 09:32 | Hospitalist Progress Note ---
Date of Service December 09, 2020 Assessment & Plan Admission and Anticipated Discharge Date Admission Date: December 08, 2020 Results & Data Results & Data ([facility]) Vital Signs (Past 12 Hours) Vital Signs Temp Pulse Pulse Resp BP Pulse Ox 12/09/20 08:03 36.5 C 54 L 18 108/63 94 12/09/20 07:33 57 L 12/09/20 04:00 36.4 C L 66 18 121/75 97 12/08/20 23:02 36.4 C L 65 18 114/70 96 12/08/20 22:20 65
[2020-12-09 09:36] LABS: BUN Creatinine Ratio 25.2 (10-20); Calcium 8.6 mg/dl (8.5-10.1); Creatinine Clr Calc Pharmacy 64.1 ml/min; Est GFR (African American) 74.1 ml/min; Est GFR (Non-African American) 63.9 ml/min; Potassium 3.8 mmol/L (3.5-5.1)
[2020-12-09] MEDS ORDERED: oxyCODONE HCL IR 5 MG TAB (IMMEDIATE RELEASE) PO PRN (10:11)
[2020-12-09] MEDS ORDERED: bisacodyL 10 MG SUPP PR PRN (10:11)
--- NOTE | 2020-12-09 15:11 | Medical Student Progress Note ---
Date of Service December 09, 2020 Assessment & Plan (1) Syncopal episodes: Plan: Mr. Bradford is a 75 yo M with a history of non-epileptic seizure disorder and heart disease who was brought in by EMS after a syncopal episode yesterday. He is currently in no acute distress and asymptomatic. -Patient unable to recall event or any prodromal symptoms -Possible syncopal etiologies: -Cardiac origin is certainly possible given history of heart disease, AFib, and observed run of v-tach while in the emergency department. -Continue cardiac monitoring; no acute cardiac events overnight; likely discharge on 30d event monitor -Continue trending electrolytes. Replete as needed -(-)Tropinins x 2 -Neurogenic syncope is possible given Hx of non-epileptic seizure disorder, and confusion upon arrival of EMS -Confusion resolved; A&Ox3 -Recent 48 hour EEG at [facility] [place] was ultimately negative -Continue home anti-epileptics -Malnutrition/Deconditioning/Mechanical given decreased appetite and food intake and old age, though electrolytes WNL -FEES through speech therapy: severe dysphagia and aspiration with all consistencies of foods and beverages -Nutrition consult appreciated: PO supplementation, increased daily snacks, monitoring electrolytes -Currently on minced & moist diet -PT/OT: recommend short-term rehabilitation -Patient says he has been able to ambulate to the bathroom pretty well with his nurse -Fortunately imaging all negative for acute injury -Neuro checks q4 hour given fall on Coumadin -Case management consulted and patient's preferences on placement were discussed; placement pending; given frequency in hospitalizations, decond itioning at home, and fall risk, we also agree that the patient is not safe to go home alone right now -Spoke with son, Moses, when seeing the patient; lives next door and would like to be kept in the loop regarding his care; agrees that rehab would be best currently (2) Depression: Plan: -Likely a contributor to his decreased appetite -Had a scheduled telehealth appointment with psych today that he says went well -Would likely benefit from an anti-depressant, but patient is a bit hesitant to start a new medication due to already taking so many medications -Will likely speak with his behavioral therapist to get input on thoughts for pursing pharmacologic management (3) Subtherapeutic international normalized ratio (INR): Plan: -INR: 1.7 compared to 2.6 on 12/07 -Likely secondary to consuming Boost shakes, which have 25% of daily Vitamin K -Currently on Warfarin 7.5 mg daily -Increasing dosage to 9 mg daily -Trend Coag studies (4) Chronic kidney disease, stage 3a: Plan: - creatinine at 1.12 (vs 1.27: 12/08 vs. 1.49: 12/07), BUN at 28 (vs 40: 12/08, vs. 45: 12/07) - baseline Cr 1.1 - suspect pre-renal etiology, as patient reported diminished PO intake - trend BMP (5) Diabetes: Plan: - A1c 7.4 from 10/12/20 - continue home lantus insulin + sliding scale ordered - Trulicity every Sunday - Carb Consistent Diet; minced & moist - Continue high intensity statin Diabetes mellitus complication detail: with polyneuropathy Karol betes mellitus complication status: with neurologic complications Diabetes mellitus exterminator insulin use: with exterminator use Diabetes mellitus type: type 2 Qualified Code(s): E11.42 - Type 2 diabetes mellitus with diabetic polyneuropathy; Z79.4 - assisted (current) use of insulin (6) Hypoalbuminemia: Plan: - Albumin low at 3.3 on 12/07 - Likely secondary to reduced PO intake/failure to thrive - Boost supplements ordered (7) CAD (coronary artery disease): Plan: - Continue ASA + Atorvasatin Associated angina: without angina Coronary Disease-Associated Artery/Lesion type: [place] artery [place] vs. transplanted heart: [place] heart Qualified Code(s): I25.10 - Atherosclerotic heart disease of [place] coronary artery without angina pectoris (8) Parkinsonism: Plan: - Continue home dose sinemet Parkinsonism type: unspecified Qualified Code(s): G20 - Parkinson's disease (9) Rheumatoid arthritis: Plan: - Continue weekly methotrexate and daily prednisone (10) Gout: Plan: - Continue home dose allopurinol DVT ppx: On Coumadin Diet: Carb Consistent DM2; minced and moist, aspiration precautions Dispo: PCU/tele Code: Full Admission and Anticipated Discharge Date Admission Date: December 08, 2020 Supervising Attestation Patient seen and examined with YE Carrillo. Agree with history, exam findings, assessment and plan of care as outlined. In brief, Mr. Bradford is a 75 year old male with h/o non-epileptic seizures who is admitted after a syncopal episode. He does not remember his fall or any prodromal symptoms but has since been feeling relatively well. Does report worsening weakness as of the past few months, especially associated to his recurrent bouts of pneumonia. He is feeling a bit more hopeful today. He had a televisit with Rupal, from the [facility] today. Kent that it was helpful, but worried about having depression in his chart forever. He reports that some of the seizure medications cause depression too. He is unsure about whether or not he would want to be on a medication for his mood, but may be open to the idea in the future. He acknowledges that while he may aspirate, he would prefer to be able to eat foods that he enjoys and he would take the risk of getting aspiration pneumonitis. He does not wish to speak with palliative care. Does endorse passive suicidal thoughts. Vital signs and nursing notes reviewed. Chronically ill appearing. Mood is low and depressed. Flat affect. 1. Syncope: cardiac vs. neurogenic vs. malnutrition/deconditioning. Cardiac monitoring normal so far in hospital except for a single 13-beat run of vtach in ED (asymptomatic). May benefit from event monitor as an outpatient. Deconditioning likely a large contributor. PT agrees that he is likely to require rehab stay. 2. Protein-Calorie malnutrition: Likely significant part of his deconditioning possibly leading to the syncopal episode/fall. Dietary consultappreciate recommendations. 3. Depression: likely a significant contributor to his lack of appetite and subsequent malnutrition/deconditioning. Continue with therapy. Discussed potential benefit of an SSRI including improved mood, appetite, and energy. 4. Dysphagia/aspiration. Appreciate speech recommendations. FEES showed aspiration with all consistencies. Continue with aspiration precautions, modified diet as he is able. 5. Diabetes: Holding trulicity. On sliding scale insulin. 6. Afib. Rate controlled. Anticoagulated with coumadin. INR 1.8 today. Likely low secondary to increased vitamin K intake. Home coumadin is 7.5mg. increased to 9mg tonight to accomodate for increased vitamin K (boost drinks BID contain 25% daily vitamin K). Dispo:pending placement Subjective Overall, patient is doing much better than he was yesterday. He is less confused today and has consumed most of his breakfast: oatmeal, oranges, milk, boost. His largest complaint is for constipation, which he struggles with at home. There was a strained bowel movement yesterday evening with some blood. Typically does a glycerin suppository daily, senna 2-3x/day, and miralax. He has a slight headache that is relieved with Tylenol. Also, he was able to attend his telehealth behavioral health appointment and says that it went well. His mood is also improved from yesterday. A conversation is had at the bedside regarding his increased/inevitable aspiration risk given his speech therapy evaluation. He is currently not interested in palliative care and when asked about his goals as it pertains to feeding options moving forward, he states, "I'll put up with a few pneumonias if I can live somewhat of a normal life." No complaints of nausea, vomiting, lightheadedness, or loss of consciousness. Review of Systems Review of Systems: All systems reviewed & are unremarkable except as noted in Subjective Physical Exam Constitutional: WD/WN, vitals as above comfortable Eyes: + anicteric sclerae ENMT: external ear and nose normal, oropharynx normal Neck: trachea midline Respiratory: normal respiratory effort, lungs clear to auscultation + cough (mild) Cardiovascular: Rate/Rhythm: regular rate Heart Sounds: normal S1, normal S2 and + abnormal opening sounds (systolic ejection click) Extremities: no pedal edema Gastrointestinal (Abdomen): normal bowel sounds, soft, nontender, no hepatosplenomegaly Musculoskeletal: Head/Neck/Chest: normocephalic and head atraumatic Skin: no rashes, warm and dry Neurologic: moves all extremities; not confused Speech / Cognition: normal speech Cranial Nerves: no nystagmus Psychiatric: Orientation: alert, oriented x 3 and cooperative Results & Data ([facility]) Vital Signs (Past 12 Hours) Vital Signs Temp Pulse Pulse Resp BP Pulse Ox 12/09/20 14:57 36.5 C 62 16 113/69 97 12/09/20 11:50 36.8 C 70 20 143/73 H 100 12/09/20 08:03 36.5 C 54 L 18 108/63 94 12/09/20 07:33 57 L 12/09/20 04:00 36.4 C L 66 18 121/75 97 Laboratory Results Laboratory Results WBC 5.89 K/uL (4.8-10.8) 12/08/20 04:09 RBC 3.91 M/uL (4.7-6.1) L 12/08/20 04:09 Hgb 10.1 g/dL (14.0-18.0) L 12/08/20 04:09 Hct 32.0 % (42-52) L 12/08/20 04:09 MCV 81.8 fL (80-100) 12/08/20 04:09 MCH 25.8 pg (25-34) 12/08/20 04:09 MCHC 31.6 g/dL (32-36) L 12/08/20 04:09 RDW Std Deviation 47.3 fL (36.4-46.3) H 12/08/20 04:09 RDW Coeff of Lianne 15.8 % (11.5-14.5) H 12/08/20 04:09 Plt Count 155 K/uL (130-400) 12/08/20 04:09 MPV 9.7 fL (7.4-10.4) 12/08/20 04:09 Immature Gran % (Auto) 1.0 % 12/08/20 04:09 Neut % (Auto) 66.2 % 12/08/20 04:09 Lymph % (Auto) 23.9 % 12/08/20 04:09 Grayson % (Auto) 5.3 % 12/08/20 04:09 Eos % (Auto) 3.4 % 12/08/20 04:09 Baso % (Auto) 0.2 % 12/08/20 04:09 Neut # (Auto) 3.90 K/uL (1.4-6.5) 12/08/20 04:09 Lymph # (Auto) 1.41 K/uL (1.2-3.4) 12/08/20 04:09 Grayson # (Auto) 0.31 K/uL (0.11-0.59) 12/08/20 04:09 Eos # (Auto) 0.20 K/uL (0-0.5) 12/08/20 04:09 Baso # (Auto) 0.01 K/uL (0-0.2) 12/08/20 04:09 Immature Gran # (Auto) 0.06 K/uL (0.00-0.02) H 12/08/20 04:09 PT 17.4 Seconds (9.0-12.0) H 12/09/20 07:52 INR 1.8 (0.9-1.1) H 12/09/20 07:52 Sodium 143 mmol/L (136-145) 12/09/20 07:52 Potassium 3.8 mmol/L (3.5-5.1) 12/09/20 07:52 Chloride 113 mmol/L (98-107) H 12/09/20 07:52 Carbon Dioxide 24 mmol/L (21-32) 12/09/20 07:52 Anion Gap 6.0 (3-11) 12/09/20 07:52 BUN 28 mg/dl (7-18) H 12/09/20 07:52 Creatinine 1.12 mg/dl (0.6-1.4) 12/09/20 07:52 Est Cr Clr Drug Dosing 64.1 ml/min 12/09/20 07:52 Est GFR ( Amer) 74.1 ml/min 12/09/20 07:52 Est GFR (Non-Af Amer) 63.9 ml/min 12/09/20 07:52 BUN/Creatinine Ratio 25.2 (10-20) H 12/09/20 07:52 Glucose 125 mg/dl (70-99) H 12/09/20 07:52 POC Glucose 276 mg/dl (70-99) H 12/09/20 11:41 Calcium 8.6 mg/dl (8.5-10.1) 12/09/20 07:52 Phosphorus 3.2 mg/dl (2.5-4.9) 12/08/20 04:09 Magnesium 2.6 mg/dl (1.8-2.4) H 12/08/20 04:09 Total Bilirubin 0.3 mg/dl (0.2-1) 12/07/20 19:10 AST 32 U/L (15-37) 12/07/20 19:10 ALT 38 U/L (12-78) 12/07/20 19:10 Alkaline Phosphatase 103 U/L (45-117) 12/07/20 19:10 Troponin I < 0.015 ng/ml (0-0.045) 12/08/20 10:15 Total Protein 6.7 gm/dl (6.4-8.2) 12/07/20 19:10 Albumin 3.3 gm/dl (3.4-5.0) L 12/07/20 19:10 Globulin 3.4 gm/dl (2.5-4.0) 12/07/20 19:10 Albumin/Globulin Ratio 1.0 (0.9-2) 12/07/20 19:10 Procalcitonin 0.24 ng/ml (0-0.5) 12/08/20 10:15 COVID-19 Eval Order Covid19 at [facility] 12/07/20 19:39 SARS-CoV-2 (PCR) NEGATIVE (Negative) 12/07/20 19:[address] 12/07/20 19:09 CT OF THE CERVICAL SPINE CLINICAL HISTORY: s/p fall COMPARISON STUDY: August 31, 2020 CT DOSE: TECHNIQUE: CT scan of the cervical spine was performed from the skull base to the thoracic inlet. Images are reviewed in the axial, sagittal, and coronal planes. IV contrast was not administered for this examination. A dose lowering technique was utilized adhering to the principles of ALARA. FINDINGS: The visualized portions of the lung apices reveal no evidence of pneumothorax. The prevertebral soft tissues are normal. No fractures or subluxations are visualized. Evaluation is limited due to diffuse severe osteopenia. Normal cervical lordosis is decreased. Vertebral body heights are maintained. There is ACDF placement and disc spacer is seen at the C4-C5 level. Opacified fracture is extending to the central canal at the level of C5 and associated with central canal and left neural foraminal narrowing. Partial opacification of inferior aspect of the right and left mastoid air cells might represent mastoiditis. IMPRESSION: No definite acute fracture or traumatic malalignment. Limited exam due to osteopenia. ACDF is seen within C4-C5 level with disc spacer. Calcified structures the posterior aspect of C4-C5 show extension to the central canal associated with its narrowing. Similar findings were seen on prior study performed on August 31, 2020. Multilevel degenerative changes. Possible mastoiditis. ACT 112: Negative or not required by law. The above report was generated using voice recognition software. It may contain grammatical, syntax or spelling errors. Electronically signed by: Cecilia Kyle DO 12/07/2020 8:[address] 12/07/20 19:09 CT head/brain wo con CLINICAL HISTORY: s/p fall COMPARISON STUDY: September 04, 2020. TECHNIQUE: Axial CT of the brain is performed from the vertex to the skull base. IV contrast was not administered for this examination. A dose lowering technique was utilized adhering to the principles of ALARA. CT DOSE: FINDINGS: No intra or extra-axial mass lesions are visualized. There is no CT evidence of acute cortical infarction. There is no evidence of midline shift. There is no acute hemorrhage. No acute depressed calvarial fractures are visualized. There are patchy white matter hypodensities likely on a small vessel basis. Minimal atrophic changes of brain parenchyma are seen and associated with ex vacuo dilatation of ventricles. There is no evidence of acute sinusitis IMPRESSION: No acute intracranial hemorrhage, no midline shift or space occupying lesions. No acute depressed skull fractures. Chronic small vessel ischemia and atrophic changes of brain parenchyma. ACT 112: Negative or not required by law. The above report was generated using voice recognition software. It may contain grammatical, syntax or spelling errors. Electronically signed by: Cecilia Kyle DO 12/07/2020 8:16 PM Forearm X-Ray 12/07/20 19:11 XR forearm LT 2V CLINICAL HISTORY: pain post fall COMPARISON: None. DISCUSSION: The bones and joint spaces appear intact. There is no evidence of fracture, dislocation or bony disease. Mild diffuse soft tissue edema. Evaluation is slightly limited due to suboptimal positioning on the lateral view. IMPRESSION: As above. ACT 112: Negative or not required by law. The above report was generated using voice recognition software. It may contain grammatical, syntax or spelling errors. Electronically signed by: Cecilia Kyle DO 12/07/2020 8:14 PM Abdomen/Pelvis CT 12/07/20 19:18 CT SCAN OF THE ABDOMEN AND PELVIS WITHOUT CONTRAST CLINICAL HISTORY: syncope, h/o ascending TAA s/p repair, iodine jose carlos COMPARISON STUDY: November 11, 2020 TECHNIQUE: CT scan of the abdomen and pelvis was performed from the lung bases to the proximal femurs. Images are reviewed in the axial, sagittal, and coronal planes. IV contrast was not administered for this examination. A dose lowering technique was utilized adhering to the principles of ALARA. CT DOSE: 4013.27 mGy.cm FINDINGS: Lower chest: Please see report of the chest performed at the same time. Liver: The unenhanced liver is normal in size, contour, and attenuation. There is no intrahepatic biliary ductal dilatation. Gallbladder: Is surgically absent Spleen: Normal in size and attenuation. Pancreas: Normal appearance of the pancreas. Focal calcification are seen near distal aspect of the common bile duct. Common bile duct is nondilated. Adrenal glands: Unremarkable. Kidneys: The unenhanced kidneys are normal in size without hydronephrosis. There is no contour deforming renal mass lesion. No renal calculi are identified. Bowel: Esophageal ring is seen. Bowel loops are nondilated. Appendix is not well seen. Mild diverticulosis of sigmoid colon is seen without evidence of diverticulitis. Peritoneum: There is no intraperitoneal free air or abdominal ascites. Vasculature: Abdominal aorta is normal in caliber with scattered calcifications of its wall. Adenopathy: None. Pelvic viscera: Urinary bladder is adequately filled with urine. Prostate gland is diminished in size with few metallic densities which might represent seeds. Possible status post TURP. Skeletal structures: Osteopenia. Degenerative changes of the spine. Postlaminectomy changes and orthopedic hardware within lower lumbar spine, stable since prior. IMPRESSION: 1. No acute intra-abdominal process. Bowel loops are nondilated. Appendix is not well seen. 2. Calcified aorta. 3. Diverticulosis of sigmoid colon without evidence of diverticulitis. 4. Status post cholecystectomy. 5. The rest of findings as above. ACT 112: Negative or not required by law. The above report was generated using voice recognition software. It may contain grammatical, syntax or spelling errors. Electronically signed by: Cecilia Kyle DO 12/07/2020 8:[address] 12/07/20 19:18 CT chest diagnostic wo con CLINICAL HISTORY: syncope, h/o ascending TAA s/p repair, iodine jose carlos COMPARISON STUDY: November 11, 2020 CT DOSE: TECHNIQUE: CT of the thorax was performed from the thoracic inlet to the lung bases. Images are reviewed in the axial, sagittal, and coronal planes. IV contrast was not administered for this examination. A dose lowering technique was utilized adhering to the principles of ALARA. FINDINGS: There is no axillary, supra clavicle or internal mammary lymphadenopathy seen. Mediastinal lymph nodes are not enlarged. Thyroid gland is not well seen. Small hiatal hernia and gastric lap band is again seen. Thoracic aorta: Thoracic aorta is normal in caliber. Status post ascending aorta repair. Scattered calcifications are seen within aortic wall. Evaluation of aorta is limited due to lack of IV contrast. 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 Heart is normal in size. 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 Calcifications of the [place] coronary arteries. Coronary stents. Lungs and pleural spaces: Tracheobronchial tree is patent. Multifocal groundglass tree-in-bud opacities are seen within left lower lobe and right middle lobe. Possible atelectasis/scarring is seen within subpleural aspect of right lower lobe and right middle lobe. No pleural effusion is seen. Upper abdomen: Please see separate report of abdomen and pelvis performed at the same time. Skeletal structures: Multilevel degenerative changes of the spine. Sternotomy changes. IMPRESSION: 1. Normal size of ascending and descending aorta. Status post ascending aorta replacement. Evaluation is limited due to lack of IV contrast. 2. Multifocal tree-in-bud groundglass opacities are seen within lower lungs as detailed above and could represent infectious/inflammatory process. Please correlate above-mentioned findings with recent prior history and current presentation of pneumonia/infectious pulmonary process. Short-term follow-up in 4-6 weeks on nonemergency basis is recommended to document resolution. 3. Dilatation of the main pulmonary artery which could be seen in pulmonary hypertension. 4. The rest of findings as above. ACT 112: Positive. There are findings on this exam that require communication between the performing entity and the patient following Patient Test Result Information Act ([place] Act 112) guidelines. The above report was generated using voice recognition software. It may contain grammatical, syntax or spelling errors. Electronically signed by: Cecilia Kyle DO 12/07/2020 8:47 PM Medications Administered Current Inpatient Medications Acetaminophen (Acetaminophen 325 Mg Tab) 650 mg PO Q4H PRN PRN Reason: Pain or Fever Stop: 01/07/21 00:04 Last Admin: 12/08/20 22:03 Dose: 650 mg Documented by: Albuterol (Albuterol Hfa 8 Gm Inhaler) 2 puffs INH Q4H PRN PRN Reason: Wheezing Stop: 01/07/21 00:04 Allopurinol (Allopurinol 100 Mg Tab) 100 mg PO HS KIRSTEN Stop: 01/07/21 20:59 Last Admin: 12/08/20 19:40 Dose: 100 mg Documented by: Aspirin (Aspirin 81 Mg Ectab) 81 mg PO QAM KIRSTEN Stop: 01/07/21 08:59 Last Admin: 12/09/20 08:18 Dose: 81 mg Documented by: Atorvastatin Calcium (Atorvastatin 40 Mg Tab) 40 mg PO HS KIRSTEN Stop: 01/07/21 20:59 Last Admin: 12/08/20 19:38 Dose: 40 mg Documented by: Carbidopa/Levodopa (Carbidopa/Levodopa 25/100mg Tab) 0.5 tab PO TID KIRSTEN Stop: 01/07/21 08:59 Last Admin: 12/09/20 08:17 Dose: 0.5 tab Documented by: Dextrose (Dextrose 50% 50 Ml Syringe) 25 - 50 ml IV UD PRN; Protocol PRN Reason: Hypoglycemia Protocol Stop: 01/07/21 00:04 Docusate Sodium (Docusate Sodium 100 Mg Cap) 100 mg PO BID KIRSTEN Stop: 01/07/21 08:59 Last Admin: 12/09/20 08:16 Dose: 100 mg Documented by: Famotidine (Famotidine 20 Mg Tab) 20 mg PO BID KIRSTEN Stop: 01/07/21 08:59 Last Admin: 12/09/20 08:15 Dose: 20 mg Documented by: Furosemide (Furosemide 20 Mg Tab) 20 mg PO DAILY KIRSTEN Stop: 01/07/21 08:59 Last Admin: 12/09/20 08:16 Dose: 20 mg Documented by: Gabapentin (Gabapentin 300 Mg Cap) 600 mg PO BID KIRSTEN Stop: 01/07/21 08:59 Last Admin: 12/09/20 08:18 Dose: 600 mg Documented by: Glucagon (Glucagon For Inj 1 Mg Vial) 1 mg SQ UD PRN; Protocol PRN Reason: Hypoglycemia Protocol Stop: 01/07/21 00:04 Glucose (Glucose 10 Tabs/Tube) 4 - 8 tabs PO UD PRN; Protocol PRN Reason: Hypoglycemia Protocol Stop: 01/07/21 00:04 Glucose (Glucose 40% Gel 15 Gm Tube) 15 - 30 gm PO UD PRN; Protocol PRN Reason: Hypoglycemia Protocol Stop: 01/07/21 00:04 Guaifenesin (Guaifenesin 600 Mg Tabcr) 600 mg PO Q12 KIRSTEN Stop: 01/07/21 08:59 Last Admin: 12/09/20 08:18 Dose: 600 mg Documented by: Insulin Aspart (Insulin Aspart 100 Units/Ml 3 Ml Pen) 0 units SC ACHS [facility] Stop: 01/07/21 00:59 Last Admin: 12/09/20 12:54 Dose: 7 units Documented by: Insulin Glargine (Insulin Glargine Solostar 100 Units/Ml 3 Ml Pen) 20 units SQ BID KIRSTEN Stop: 01/07/21 08:59 Last Admin: 12/09/20 08:25 Dose: 20 units Documented by: Levetiracetam (Levetiracetam 500 Mg Tab) 1,000 mg PO BID KIRSTEN Stop: 01/07/21 08:59 Last Admin: 12/09/20 08:16 Dose: 1,000 mg Documented by: Miscellaneous (Carbohydrates For Hypoglycemia ) 15 - 30 gm PO UD PRN PRN Reason: Hypoglycemia Protocol Stop: 01/07/21 00:04 Multivitamins/Minerals (Cerovite Adv Formula Tab) 1 tab PO HS [facility] Stop: 01/07/21 20:59 Last Admin: 12/08/20 19:38 Dose: 1 tab Documented by: Ondansetron HCl (Ondansetron Inj 2 Mg/Ml 2 Ml Vial) 4 mg IV Q6H PRN PRN Reason: Nausea Stop: 01/07/21 00:04 Oxycodone HCl (Oxycodone Hcl Ir 5 Mg Tab (Immediate Release)) 5 mg PO Q6H PRN PRN Reason: severe pain Stop: 12/22/20 00:04 Pantoprazole Sodium (Pantoprazole 40 Mg Tab) 40 mg PO BID [facility] Stop: 01/07/21 08:59 Last Admin: 12/09/20 08:14 Dose: 40 mg Documented by: Polyethylene Glycol (Polyethylene (Miralax) 17 Gm Pack) 17 gm PO DAILY [facility] Stop: 01/08/21 10:14 Prednisone (Prednisone 10 Mg Tablet) 10 mg PO DAILY [facility] Stop: 01/07/21 08:59 Last Admin: 12/09/20 08:18 Dose: 10 mg Documented by: Sennosides (Senna 8.6 Mg Tab) 8.6 mg PO QAM [facility] Stop: 01/07/21 08:59 Last Admin: 12/09/20 08:16 Dose: 8.6 mg Documented by: Spironolactone (Spironolactone 25 Mg Tab) 25 mg PO DAILY KIRSTEN Stop: 01/07/21 08:59 Last Admin: 12/09/20 08:17 Dose: 25 mg Documented by: Sucralfate (Sucralfate 1 Gm Tab) 1 gm PO QID KIRSTEN Stop: 01/07/21 08:59 Last Admin: 12/09/20 12:55 Dose: 1 gm Documented by: Topiramate (Topiramate 100 Mg Tab) 100 mg PO BID KIRSTEN Stop: 01/07/21 08:59 Last Admin: 12/09/20 08:16 Dose: 100 mg Documented by: Umeclidinium/Vilanterol (Umeclidinium/Vilanterol 62.5/25mcg 7 Puffs/Inhaler) 1 puffs INH QAM KIRSTEN Stop: 01/07/21 08:59 Last Admin: 12/09/20 08:19 Dose: 1 puffs Documented by: Vitamin D (Cholecalciferol 1,000 Units 25 Mcg Tab) 2,000 units PO HS KIRSTEN Stop: 01/07/21 20:59 Last Admin: 12/08/20 19:39 Dose: 2,000 units Documented by: Warfarin Sodium (Warfarin Sod 7.5 Mg Tab) 7.5 mg PO DAILY@1600 [facility] Stop: 01/07/21 15:59 Last Admin: 12/08/20 16:24 Dose: 7.5 mg Documented by:
[2020-12-09] MEDS: POLYETHYLENE (MIRALAX) 17 GM PACK PO SCH (16:29)
[2020-12-09] MEDS: WARFARIN SOD 3 MG TAB PO SCH (16:55)
[2020-12-09] MEDS: allopurinoL 100 MG TAB PO SCH (19:46)
[2020-12-09] MEDS: CEROVITE ADV FORMULA TAB PO SCH (19:46)
[2020-12-09] MEDS: CHOLECALCIFEROL 1,000 UNITS 25 MCG TAB PO SCH (19:49)
[2020-12-09] MEDS: ATORVASTATIN 40 MG TAB PO SCH (19:50)
[2020-12-10] MEDS: INSULIN ASPART 100 UNITS/ML 3 ML PEN SC SCH ×4 (08:18→21:34)
--- NOTE | 2020-12-10 08:18 | Hospitalist Progress Note ---
Date of Service December 10, 2020 Assessment & Plan Admission and Anticipated Discharge Date Admission Date: December 08, 2020 Results & Data Results & Data ([facility]) Vital Signs (Past 12 Hours) Vital Signs Temp Pulse Pulse Resp BP Pulse Ox 12/10/20 07:35 36.3 C L 58 L 18 98/62 L 95 12/10/20 07:27 61 12/10/20 03:06 36.5 C 99 H 18 112/68 93 12/09/20 23:03 36.9 C 68 18 111/68 96 12/09/20 22:20 80
[2020-12-10] MEDS: levETIRAcetam 500 MG TAB PO SCH ×2 (08:20→21:16)
[2020-12-10] MEDS: UMECLIDINIUM/VILANTEROL 62.5/25MCG 7 PUFFS/INHALER INH SCH (08:20)
[2020-12-10] MEDS: SUCRALFATE 1 GM TAB PO SCH ×4 (08:20→21:14)
[2020-12-10] MEDS: GABAPENTIN 300 MG CAP PO SCH ×2 (08:20→21:21)
[2020-12-10] MEDS: CARBIDOPA/LEVODOPA 25/100MG TAB PO SCH ×3 (08:20→21:13)
[2020-12-10] MEDS: PANTOprazole 40 MG TAB PO SCH ×2 (08:20→21:15)
[2020-12-10] MEDS: DOCUSATE SODIUM 100 MG CAP PO SCH ×2 (08:20→21:20)
[2020-12-10] MEDS: TOPIRAMATE 100 MG TAB PO SCH ×2 (08:21→21:23)
[2020-12-10] MEDS: SENNA 8.6 MG TAB PO SCH (08:21)
[2020-12-10] MEDS: ASPIRIN 81 MG ECTAB PO SCH (08:21)
[2020-12-10] MEDS: POLYETHYLENE (MIRALAX) 17 GM PACK PO SCH (08:21)
[2020-12-10] MEDS: predniSONE 10 MG TABLET PO SCH (08:21)
[2020-12-10] MEDS: SPIRONOLACTONE 25 MG TAB PO SCH (08:21)
[2020-12-10] MEDS: guaiFENesin 600 MG TABCR PO SCH ×2 (08:21→21:22)
[2020-12-10] MEDS: FUROSEMIDE 20 MG TAB PO SCH (08:21)
[2020-12-10] MEDS: INSULIN GLARGINE SOLOSTAR 100 UNITS/ML 3 ML PEN SQ SCH ×2 (08:22→21:34)
--- NOTE | 2020-12-10 08:25 | Medical Student Progress Note ---
Date of Service December 10, 2020 Assessment & Plan (1) Syncopal episodes: Plan: Mr. Bradford is a 75 yo M with a history of non-epileptic seizure disorder and heart disease who was brought in by EMS after a syncopal episode yesterday. He is currently in no acute distress and asymptomatic. -Patient unable to recall event or any prodromal symptoms -Possible syncopal etiologies: -Cardiac origin is certainly possible given history of heart disease, AFib, and observed run of v-tach while in the emergency department. -Continue cardiac monitoring; no acute cardiac events overnight; likely discharge on 30d event monitor -Continue trending electrolytes. Replete as needed -(-)Tropinins x 2 -Neurogenic syncope is possible given Hx of non-epileptic seizure disorder, and confusion upon arrival of EMS -Confusion resolved; A&Ox3 -[place] 48 [place] [facility] [place] -Continue home anti-epileptics -Malnutrition/Deconditioning/Mechanical given decreased appetite and food intake and old age, though electrolytes WNL -FEES through speech therapy: severe dysphagia and aspiration with all consistencies of foods and beverages -Nutrition consult appreciated: PO supplementation, increased daily snacks, monitoring electrolytes -Currently on minced & moist diet -PT/OT: recommend short-term rehabilitation -Patient says he has been able to ambulate to the bathroom pretty well with his nurse -Fortunately imaging all negative for acute injury -Neuro checks q4 hour given fall on Coumadin -Case management consulted and patient's preferences on placement were discussed; placement pending; given frequency in hospitalizations, decond itioning at home, and fall risk, we also agree that the patient is not safe to go home alone right now -Spoke with son, Moses, when seeing the patient; lives next door and would like to be kept in the loop regarding his care; agrees that rehab would be best currently (2) Depression: Plan: -Likely a contributor to his decreased appetite -Had a scheduled telehealth appointment with psych on that he says went well -Would likely benefit from an anti-depressant, but patient is a bit hesitant to start a new medication due to already taking so many medications (3) Subtherapeutic international normalized ratio (INR): Plan: -INR: 1.6 compared to 1.7 on 12/09; PT: 15.3 -Likely secondary to consuming Boost shakes, which have 25% of daily Vitamin K -Warfarin increased to 9 mg daily yesterday -Trend Coag studies, knowing his levels may not be therapeutic (INR 2-3) for another few days (4) Chronic kidney disease, stage 3a: Plan: - creatinine at 1.12 (vs 1.27: 12/08 vs. 1.49: 12/07), BUN at 28 (vs 40: 12/08, vs. 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 transplanted heart: [place] heart Qualified Code(s): I25.10 - Atherosclerotic heart disease of [place] coronary artery without angina pectoris (8) Parkinsonism: Plan: - Continue home dose sinemet Parkinsonism type: unspecified Qualified Code(s): G20 - Parkinson's disease (9) Rheumatoid arthritis: Plan: - Continue weekly methotrexate and daily prednisone (10) Gout: Plan: - Continue home dose allopurinol DVT ppx: On Coumadin Diet: Carb Consistent DM2; minced and moist, aspiration precautions Dispo: PCU/tele; d/c to rehab/snf Code: Full Admission and Anticipated Discharge Date Admission Date: December 08, 2020 Supervising Attestation Attending attestation Pt seen and examined in concert with Dr. Garrett, St. Dr. Carrillo. In agreement with the documented findings as noted in the resident documentation with any exceptions or additions as noted here. Resting in bed without significant complaint at time of examination. Still not well oriented to place. More open to PT recommendations but will see where current referral stands. S1/S2 nl RRR no MCG. CTAB. Abd NT/ND BS+ve Loss of consciousness - ?syncopal episode - cardiac/neuro evaluation without apparent cause. Would recommend event monitor following discharge. 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 Subjective Overall, patient is doing better than he was yesterday. He was able to consume most of his breakfast this morning and was taking a large bowel movement upon entering the room, which provided him much relief. When speaking about the conversation had at the bedside with the team regarding his increased/inevitable aspiration risk given his speech therapy evaluation, he says that he is not understanding how he "failed" everything given that he can swallow pills and eat normally at home. Conversation was had about his placement at a rehabilitation facility yesterday as well and he had stated that even if his insurance denied his placement, which they have done many times previously, he would want to appeal and "keep fighting". Today, he states that if he is denied/doesn't hear back today, he just wants to go home and he is "at peace with the way things are". No complaints of nausea, vomiting, chest pain, dizziness, diarrhea, lightheadedness, or loss of consciousness. Review of Systems Review of Systems: All systems reviewed & are unremarkable except as noted in Subjective Physical Exam Constitutional: WD/WN, vitals as above comfortable Eyes: + anicteric sclerae ENMT: external ear and nose normal, oropharynx normal Neck: trachea midline Respiratory: normal respiratory effort, lungs clear to auscultation + cough (mild) Cardiovascular: Rate/Rhythm: regular rate Heart Sounds: normal S1, normal S2 and + abnormal opening sounds (systolic ejection click) Extremities: no pedal edema Musculoskeletal: Head/Neck/Chest: normocephalic and head atraumatic Skin: no rashes, warm and dry Neurologic: moves all extremities; not confused Speech / Cognition: normal speech Cranial Nerves: no nystagmus Psychiatric: Orientation: alert, oriented x 3 and cooperative Results & Data ([facility]) Vital Signs (Past 12 Hours) Vital Signs Temp Pulse Pulse Resp BP Pulse Ox 12/10/20 07:35 36.3 C L 58 L 18 98/62 L 95 12/10/20 07:27 61 12/10/20 03:06 36.5 C 99 H 18 112/68 93 12/09/20 23:03 36.9 C 68 18 111/68 96 12/09/20 22:20 80 Laboratory Results Laboratory Results WBC 5.89 K/uL (4.8-10.8) 12/08/20 04:09 RBC 3.91 M/uL (4.7-6.1) L 12/08/20 04:09 Hgb 10.1 g/dL (14.0-18.0) L 12/08/20 04:09 Hct 32.0 % (42-52) L 12/08/20 04:09 MCV 81.8 fL (80-100) 12/08/20 04:09 MCH 25.8 pg (25-34) 12/08/20 04:09 MCHC 31.6 g/dL (32-36) L 12/08/20 04:09 RDW Std Deviation 47.3 fL (36.4-46.3) H 12/08/20 04:09 RDW Coeff of Lianne 15.8 % (11.5-14.5) H 12/08/20 04:09 Plt Count 155 K/uL (130-400) 12/08/20 04:09 MPV 9.7 fL (7.4-10.4) 12/08/20 04:09 Immature Gran % (Auto) 1.0 % 12/08/20 04:09 Neut % (Auto) 66.2 % 12/08/20 04:09 Lymph % (Auto) 23.9 % 12/08/20 04:09 Shannon % (Auto) 5.3 % 12/08/20 04:09 Eos % (Auto) 3.4 % 12/08/20 04:09 Baso % (Auto) 0.2 % 12/08/20 04:09 Neut # (Auto) 3.90 K/uL (1.4-6.5) 12/08/20 04:09 Lymph # (Auto) 1.41 K/uL (1.2-3.4) 12/08/20 04:09 Shannon # (Auto) 0.31 K/uL (0.11-0.59) 12/08/20 04:09 Eos # (Auto) 0.20 K/uL (0-0.5) 12/08/20 04:09 Baso # (Auto) 0.01 K/uL (0-0.2) 12/08/20 04:09 Immature Gran # (Auto) 0.06 K/uL (0.00-0.02) H 12/08/20 04:09 PT 15.3 Seconds (9.0-12.0) H 12/10/20 07:54 INR 1.6 (0.9-1.1) H 12/10/20 07:54 Sodium 143 mmol/L (136-145) 12/09/20 07:52 Potassium 3.8 mmol/L (3.5-5.1) 12/09/20 07:52 Chloride 113 mmol/L (98-107) H 12/09/20 07:52 Carbon Dioxide 24 mmol/L (21-32) 12/09/20 07:52 Anion Gap 6.0 (3-11) 12/09/20 07:52 BUN 28 mg/dl (7-18) H 12/09/20 07:52 Creatinine 1.12 mg/dl (0.6-1.4) 12/09/20 07:52 Est Cr Clr Drug Dosing 64.1 ml/min 12/09/20 07:52 Est GFR ( Amer) 74.1 ml/min 12/09/20 07:52 Est GFR (Non-Af Amer) 63.9 ml/min 12/09/20 07:52 BUN/Creatinine Ratio 25.2 (10-20) H 12/09/20 07:52 Glucose 125 mg/dl (70-99) H 12/09/20 07:52 POC Glucose 196 mg/dl (70-99) H 12/10/20 07:29 Calcium 8.6 mg/dl (8.5-10.1) 12/09/20 07:52 Phosphorus 3.2 mg/dl (2.5-4.9) 12/08/20 04:09 Magnesium 2.6 mg/dl (1.8-2.4) H 12/08/20 04:09 Total Bilirubin 0.3 mg/dl (0.2-1) 12/07/20 19:10 AST 32 U/L (15-37) 12/07/20 19:10 ALT 38 U/L (12-78) 12/07/20 19:10 Alkaline Phosphatase 103 U/L (45-117) 12/07/20 19:10 Troponin I < 0.015 ng/ml (0-0.045) 12/08/20 10:15 Total Protein 6.7 gm/dl (6.4-8.2) 12/07/20 19:10 Albumin 3.3 gm/dl (3.4-5.0) L 12/07/20 19:10 Globulin 3.4 gm/dl (2.5-4.0) 12/07/20 19:10 Albumin/Globulin Ratio 1.0 (0.9-2) 12/07/20 19:10 Procalcitonin 0.24 ng/ml (0-0.5) 12/08/20 10:15 COVID-19 Eval Order Covid19 at [facility] 12/07/20 19:39 SARS-CoV-2 (PCR) NEGATIVE (Negative) 12/07/20 19:[address] 12/07/20 19:09 CT OF THE CERVICAL SPINE CLINICAL HISTORY: s/p fall COMPARISON STUDY: August 31, 2020 CT DOSE: TECHNIQUE: CT scan of the cervical spine was performed from the skull base to the thoracic inlet. Images are reviewed in the axial, sagittal, and coronal planes. IV contrast was not administered for this examination. A dose lowering technique was utilized adhering to the principles of ALARA. FINDINGS: The visualized portions of the lung apices reveal no evidence of pneumothorax. The prevertebral soft tissues are normal. No fractures or subluxations are visualized. Evaluation is limited due to diffuse severe osteopenia. Normal cervical lordosis is decreased. Vertebral body heights are maintained. There is ACDF placement and disc spacer is seen at the C4-C5 level. Opacified fracture is extending to the central canal at the level of C5 and associated with central canal and left neural foraminal narrowing. Partial opacification of inferior aspect of the right and left mastoid air cells might represent mastoiditis. IMPRESSION: No definite acute fracture or traumatic malalignment. Limited exam due to osteopenia. ACDF is seen within C4-C5 level with disc spacer. Calcified structures the posterior aspect of C4-C5 show extension to the central canal associated with its narrowing. Similar findings were seen on prior study performed on August 31, 2020. Multilevel degenerative changes. Possible mastoiditis. ACT 112: Negative or not required by law. The above report was generated using voice recognition software. It may contain grammatical, syntax or spelling errors. Electronically signed by: Cecilia Kyle DO 12/07/2020 8:[address] 12/07/20 19:09 CT head/brain wo con CLINICAL HISTORY: s/p fall COMPARISON STUDY: September 04, 2020. TECHNIQUE: Axial CT of the brain is performed from the vertex to the skull base. IV contrast was not administered for this examination. A dose lowering technique was utilized adhering to the principles of ALARA. CT DOSE: FINDINGS: No intra or extra-axial mass lesions are visualized. There is no CT evidence of acute cortical infarction. There is no evidence of midline shift. There is no acute hemorrhage. No acute depressed calvarial fractures are visualized. There are patchy white matter hypodensities likely on a small vessel basis. Minimal atrophic changes of brain parenchyma are seen and associated with ex vacuo dilatation of ventricles. There is no evidence of acute sinusitis IMPRESSION: No acute intracranial hemorrhage, no midline shift or space occupying lesions. No acute depressed skull fractures. Chronic small vessel ischemia and atrophic changes of brain parenchyma. ACT 112: Negative or not required by law. The above report was generated using voice recognition software. It may contain grammatical, syntax or spelling errors. Electronically signed by: Cecilia Kyle DO 12/07/2020 8:16 PM Forearm X-Ray 12/07/20 19:11 XR forearm LT 2V CLINICAL HISTORY: pain post fall COMPARISON: None. DISCUSSION: The bones and joint spaces appear intact. There is no evidence of fracture, dislocation or bony disease. Mild diffuse soft tissue edema. Evaluation is slightly limited due to suboptimal positioning on the lateral view. IMPRESSION: As above. ACT 112: Negative or not required by law. The above report was generated using voice recognition software. It may contain grammatical, syntax or spelling errors. Electronically signed by: Cecilia Kyle DO 12/07/2020 8:14 PM Abdomen/Pelvis CT 12/07/20 19:18 CT SCAN OF THE ABDOMEN AND PELVIS WITHOUT CONTRAST CLINICAL HISTORY: syncope, h/o ascending TAA s/p repair, iodine jose carlos COMPARISON STUDY: November 11, 2020 TECHNIQUE: CT scan of the abdomen and pelvis was performed from the lung bases to the proximal femurs. Images are reviewed in the axial, sagittal, and coronal planes. IV contrast was not administered for this examination. A dose lowering technique was utilized adhering to the principles of ALARA. CT DOSE: 4013.27 mGy.cm FINDINGS: Lower chest: Please see report of the chest performed at the same time. Liver: The unenhanced liver is normal in size, contour, and attenuation. There is no intrahepatic biliary ductal dilatation. Gallbladder: Is surgically absent Spleen: Normal in size and attenuation. Pancreas: Normal appearance of the pancreas. Focal calcification are seen near distal aspect of the common bile duct. Common bile duct is nondilated. Adrenal glands: Unremarkable. Kidneys: The unenhanced kidneys are normal in size without hydronephrosis. There is no contour deforming renal mass lesion. No renal calculi are identified. Bowel: Esophageal ring is seen. Bowel loops are nondilated. Appendix is not well seen. Mild diverticulosis of sigmoid colon is seen without evidence of diverticulitis. Peritoneum: There is no intraperitoneal free air or abdominal ascites. Vasculature: Abdominal aorta is normal in caliber with scattered calcifications of its wall. Adenopathy: None. Pelvic viscera: Urinary bladder is adequately filled with urine. Prostate gland is diminished in size with few metallic densities which might represent seeds. Possible status post TURP. Skeletal structures: Osteopenia. Degenerative changes of the spine. Post laminectomy changes and orthopedic hardware within lower lumbar spine, stable since prior. IMPRESSION: 1. No acute intra-abdominal process. Bowel loops are nondilated. Appendix is not well seen. 2. Calcified aorta. 3. Diverticulosis of sigmoid colon without evidence of diverticulitis. 4. Status post cholecystectomy. 5. The rest of findings as above. ACT 112: Negative or not required by law. The above report was generated using voice recognition software. It may contain grammatical, syntax or spelling errors. Electronically signed by: Cecilia Kyle DO 12/07/2020 8:[address] 12/07/20 19:18 CT chest diagnostic wo con CLINICAL HISTORY: syncope, h/o ascending TAA s/p repair, iodine jose carlos COMPARISON STUDY: November 11, 2020 CT DOSE: TECHNIQUE: CT of the thorax was performed from the thoracic inlet to the lung bases. Images are reviewed in the axial, sagittal, and coronal planes. IV contrast was not administered for this examination. A dose lowering technique was utilized adhering to the principles of ALARA. FINDINGS: There is no axillary, supra clavicle or internal mammary lymphadenopathy seen. Mediastinal lymph nodes are not enlarged. Thyroid gland is not well seen. Small hiatal hernia and gastric lap band is again seen. Thoracic aorta: Thoracic aorta is normal in caliber. Status post ascending aorta repair. Scattered calcifications are seen within aortic wall. Evaluation of aorta is limited due to lack of IV contrast. 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 Heart is normal in size. 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 Calcifications of the [place] coronary arteries. Coronary stents. Lungs and pleural spaces: Tracheobronchial tree is patent. Multifocal groundglass tree-in-bud opacities are seen within left lower lobe and right middle lobe. Possible atelectasis/scarring is seen within subpleural aspect of right lower lobe and right middle lobe. No pleural effusion is seen. Upper abdomen: Please see separate report of abdomen and pelvis performed at the same time. Skeletal structures: Multilevel degenerative changes of the spine. Sternotomy changes. IMPRESSION: 1. Normal size of ascending and descending aorta. Status post ascending aorta replacement. Evaluation is limited due to lack of IV contrast. 2. Multifocal tree-in-bud groundglass opacities are seen within lower lungs as detailed above and could represent infectious/inflammatory process. Please correlate above-mentioned findings with recent prior history and current presentation of pneumonia/infectious pulmonary process. Short-term follow-up in 4-6 weeks on nonemergency basis is recommended to document resolution. 3. Dilatation of the main pulmonary artery which could be seen in pulmonary hypertension. 4. The rest of findings as above. ACT 112: Positive. There are findings on this exam that require communication between the performing entity and the patient following Patient Test Result Information Act ([place] Act 112) guidelines. The above report was generated using voice recognition software. It may contain grammatical, syntax or spelling errors. Electronically signed by: Cecilia Kyle DO 12/07/2020 8:47 PM Medications Administered Current Inpatient Medications Acetaminophen (Acetaminophen 325 Mg Tab) 650 mg PO Q4H PRN PRN Reason: Pain or Fever Stop: 01/07/21 00:04 Last Admin: 12/08/20 22:03 Dose: 650 mg Documented by: Albuterol (Albuterol Hfa 8 Gm Inhaler) 2 puffs INH Q4H PRN PRN Reason: Wheezing Stop: 01/07/21 00:04 Allopurinol (Allopurinol 100 Mg Tab) 100 mg PO HS [facility] Stop: 01/07/21 20:59 Last Admin: 12/09/20 19:46 Dose: 100 mg Documented by: Aspirin (Aspirin 81 Mg Ectab) 81 mg PO QAM KIRSTEN Stop: 01/07/21 08:59 Last Admin: 12/10/20 08:21 Dose: 81 mg Documented by: Atorvastatin Calcium (Atorvastatin 40 Mg Tab) 40 mg PO HS KIRSTEN Stop: 01/07/21 20:59 Last Admin: 12/09/20 19:50 Dose: 40 mg Documented by: Carbidopa/Levodopa (Carbidopa/Levodopa 25/100mg Tab) 0.5 tab PO TID KIRSTEN Stop: 01/07/21 08:59 Last Admin: 12/10/20 08:20 Dose: 0.5 tab Documented by: Dextrose (Dextrose 50% 50 Ml Syringe) 25 - 50 ml IV UD PRN; Protocol PRN Reason: Hypoglycemia Protocol Stop: 01/07/21 00:04 Docusate Sodium (Docusate Sodium 100 Mg Cap) 100 mg PO BID KIRSTEN Stop: 01/07/21 08:59 Last Admin: 12/10/20 08:20 Dose: 100 mg Documented by: Famotidine (Famotidine 20 Mg Tab) 20 mg PO BID KIRSTEN Stop: 01/07/21 08:59 Last Admin: 12/10/20 08:33 Dose: 20 mg Documented by: Furosemide (Furosemide 20 Mg Tab) 20 mg PO DAILY KIRSTEN Stop: 01/07/21 08:59 Last Admin: 12/10/20 08:21 Dose: 20 mg Documented by: Gabapentin (Gabapentin 300 Mg Cap) 600 mg PO BID KIRSTEN Stop: 01/07/21 08:59 Last Admin: 12/10/20 08:20 Dose: 600 mg Documented by: Glucagon (Glucagon For Inj 1 Mg Vial) 1 mg SQ UD PRN; Protocol PRN Reason: Hypoglycemia Protocol Stop: 01/07/21 00:04 Glucose (Glucose 10 Tabs/Tube) 4 - 8 tabs PO UD PRN; Protocol PRN Reason: Hypoglycemia Protocol Stop: 01/07/21 00:04 Glucose (Glucose 40% Gel 15 Gm Tube) 15 - 30 gm PO UD PRN; Protocol PRN Reason: Hypoglycemia Protocol Stop: 01/07/21 00:04 Guaifenesin (Guaifenesin 600 Mg Tabcr) 600 mg PO Q12 KIRSTEN Stop: 01/07/21 08:59 Last Admin: 12/10/20 08:21 Dose: 600 mg Documented by: Insulin Aspart (Insulin Aspart 100 Units/Ml 3 Ml Pen) 0 units SC ACHS KIRSTEN Stop: 01/07/21 00:59 Last Admin: 12/10/20 08:18 Dose: 5 units Documented by: Insulin Glargine (Insulin Glargine Solostar 100 Units/Ml 3 Ml Pen) 20 units SQ BID KIRSTEN Stop: 01/07/21 08:59 Last Admin: 12/10/20 08:22 Dose: 20 units Documented by: Levetiracetam (Levetiracetam 500 Mg Tab) 1,000 mg PO BID KIRSTEN Stop: 01/07/21 08:59 Last Admin: 12/10/20 08:20 Dose: 1,000 mg Documented by: Miscellaneous (Carbohydrates For Hypoglycemia ) 15 - 30 gm PO UD PRN PRN Reason: Hypoglycemia Protocol Stop: 01/07/21 00:04 Multivitamins/Minerals (Cerovite Adv Formula Tab) 1 tab PO HS [facility] Stop: 01/07/21 20:59 Last Admin: 12/09/20 19:46 Dose: 1 tab Documented by: Ondansetron HCl (Ondansetron Inj 2 Mg/Ml 2 Ml Vial) 4 mg IV Q6H PRN PRN Reason: Nausea Stop: 01/07/21 00:04 Oxycodone HCl (Oxycodone Hcl Ir 5 Mg Tab (Immediate Release)) 5 mg PO Q6H PRN PRN Reason: severe pain Stop: 12/22/20 00:04 Pantoprazole Sodium (Pantoprazole 40 Mg Tab) 40 mg PO BID [facility] Stop: 01/07/21 08:59 Last Admin: 12/10/20 08:20 Dose: 40 mg Documented by: Polyethylene Glycol (Polyethylene (Miralax) 17 Gm Pack) 17 gm PO DAILY KIRSTEN Stop: 01/08/21 10:14 Last Admin: 12/10/20 08:21 Dose: 17 gm Documented by: Prednisone (Prednisone 10 Mg Tablet) 10 mg PO DAILY KIRSTEN Stop: 01/07/21 08:59 Last Admin: 12/10/20 08:21 Dose: 10 mg Documented by: Sennosides (Senna 8.6 Mg Tab) 8.6 mg PO QAM [facility] Stop: 01/07/21 08:59 Last Admin: 12/10/20 08:21 Dose: 8.6 mg Documented by: Spironolactone (Spironolactone 25 Mg Tab) 25 mg PO DAILY KIRSTEN Stop: 01/07/21 08:59 Last Admin: 12/10/20 08:21 Dose: 25 mg Documented by: Sucralfate (Sucralfate 1 Gm Tab) 1 gm PO QID KIRSTEN Stop: 01/07/21 08:59 Last Admin: 12/10/20 08:20 Dose: 1 gm Documented by: Topiramate (Topiramate 100 Mg Tab) 100 mg PO BID KIRSTEN Stop: 01/07/21 08:59 Last Admin: 12/10/20 08:21 Dose: 100 mg Documented by: Umeclidinium/Vilanterol (Umeclidinium/Vilanterol 62.5/25mcg 7 Puffs/Inhaler) 1 puffs INH QAM KIRSTEN Stop: 01/07/21 08:59 Last Admin: 12/10/20 08:20 Dose: 1 puffs Documented by: Vitamin D (Cholecalciferol 1,000 Units 25 Mcg Tab) 2,000 units PO HS [facility] Stop: 01/07/21 20:59 Last Admin: 12/09/20 19:49 Dose: 2,000 units Documented by: Warfarin Sodium (Warfarin Sod 3 Mg Tab) 9 mg PO DAILY@1600 [facility] Stop: 01/08/21 15:59 Last Admin: 12/09/20 16:55 Dose: 9 mg Documented by:
[2020-12-10] MEDS: FAMOTIDINE 20 MG TAB PO SCH ×2 (08:33→21:17)
[2020-12-10 08:50] LABS: INR 1.6 (0.9-1.1); Prothrombin Time 15.3 Seconds (9.0-12.0)
[2020-12-10] MEDS: WARFARIN SOD 3 MG TAB PO SCH (15:49)
[2020-12-10] MEDS: allopurinoL 100 MG TAB PO SCH (21:17)
[2020-12-10] MEDS: ATORVASTATIN 40 MG TAB PO SCH (21:18)
[2020-12-10] MEDS: CHOLECALCIFEROL 1,000 UNITS 25 MCG TAB PO SCH (21:20)
[2020-12-10] MEDS: CEROVITE ADV FORMULA TAB PO SCH (21:23)
[2020-12-11 06:15] LABS: INR 1.6 (0.9-1.1); Prothrombin Time 15.6 Seconds (9.0-12.0)
[2020-12-11 06:31] LABS: BUN Creatinine Ratio 25.3 (10-20); Creatinine Clr Calc Pharmacy 60.5 ml/min; Est GFR (African American) 69.5 ml/min; Potassium 3.9 mmol/L (3.5-5.1)
--- NOTE | 2020-12-11 06:44 | Hospitalist Progress Note ---
Date of Service December 11, 2020 Assessment & Plan (1) Syncopal episodes: Plan: Mr. Bradford is a 75 yo M with a history of non-epileptic seizure disorder and heart disease who was brought in by EMS after a syncopal episode earlier this evening. - etiology of syncope uncertain: - Patient unable to recall event or any prodromal symptoms. - Cardiac origin is certainly possible given history of heart disease and observed run of v-tach while in the emergency department. Continue cardiac monitoring. Defibrillator pads placed on chest. Na, K and Ca WNL. Check Mag and Phos. Replete electrolytes as needed. Trend trops. - Neurogenic syncope is possible given hx of non-epileptic seizure disorder, and confusion upon arrival of EMS. However, recent 48 hour EEG at [facility] was ultimately negative. Continue home anti-epileptics. - fortunately imaging all negative for acute injury - neuro checks q4 hour given fall on Coumadin - PT/OT ordered (2) Chronic kidney disease, stage 3a: Plan: - creatinine at 1.49, BUN at 45 - baseline Cr 1.1 - suspect pre-renal etiology, as patient reported diminished PO intake - LR at 100mls/hr - trend BMP (3) Diabetes: Plan: - a1c 7.4 from 10/12/20 - continue home lantus insulin + sliding scale ordered - Trulicity every Sunday - carb consistent diet - continue high intensity statin (4) Hypoalbuminemia: Plan: - albumin low at 3.3 - likely secondary to reduced PO intake/failure to thrive - boost supplements ordered (5) CAD (coronary artery disease): Plan: - continue ASA + atorvasatin (6) Parkinsonism: Plan: - continue home dose sinemet (7) Rheumatoid arthritis: Plan: - continue weekly methotrexate and daily prednisone (8) Gout: Plan: - continue home dose allopurinol DVT ppx: On Coumadin Diet: Carb Consistent DM2; minced and moist, aspiration precautions Dispo: PCU/tele Code: full, I discussed with patient Admission and Anticipated Discharge Date Admission Date: December 08, 2020 Results & Data Results & Data ([facility]) Vital Signs (Past 12 Hours) Vital Signs Temp Pulse Pulse Resp BP Pulse Ox Pulse Ox 12/11/20 05:00 94 12/11/20 03:15 36.5 C 81 18 101/46 L 97 08/14/21 00:56 61 12/10/20 23:29 36.8 C 70 18 116/55 L 96 12/10/20 19:49 36.6 C 71 18 116/67 93 (1) Diabetes Diabetes mellitus type: type 2 Diabetes mellitus skilled nursing insulin use: with skilled nursing use Diabetes mellitus complication status: with neurologic complications Diabetes mellitus complication detail: with polyneuropathy Qualified Code(s): E11.42 - Type 2 diabetes mellitus with diabetic polyneuropathy; 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 transplanted heart: [place] heart Associated angina: without angina Qualified Code(s): I25.10 - Atherosclerotic heart disease of [place] coronary artery without angina pectoris (3) Parkinsonism Parkinsonism type: unspecified Qualified Code(s): G20 - Parkinson's disease
[2020-12-11] MEDS: UMECLIDINIUM/VILANTEROL 62.5/25MCG 7 PUFFS/INHALER INH SCH (08:10)
[2020-12-11] MEDS: INSULIN ASPART 100 UNITS/ML 3 ML PEN SC SCH ×2 (08:10→12:36)
[2020-12-11] MEDS: INSULIN GLARGINE SOLOSTAR 100 UNITS/ML 3 ML PEN SQ SCH (08:11)
[2020-12-11] MEDS: predniSONE 10 MG TABLET PO SCH (08:12)
[2020-12-11] MEDS: TOPIRAMATE 100 MG TAB PO SCH (08:12)
[2020-12-11] MEDS: guaiFENesin 600 MG TABCR PO SCH (08:12)
[2020-12-11] MEDS: FUROSEMIDE 20 MG TAB PO SCH (08:12)
[2020-12-11] MEDS: SPIRONOLACTONE 25 MG TAB PO SCH (08:12)
[2020-12-11] MEDS: levETIRAcetam 500 MG TAB PO SCH (08:13)
[2020-12-11] MEDS: GABAPENTIN 300 MG CAP PO SCH (08:13)
[2020-12-11] MEDS: DOCUSATE SODIUM 100 MG CAP PO SCH (08:13)
[2020-12-11] MEDS: ASPIRIN 81 MG ECTAB PO SCH (08:13)
[2020-12-11] MEDS: FAMOTIDINE 20 MG TAB PO SCH (08:14)
[2020-12-11] MEDS: CARBIDOPA/LEVODOPA 25/100MG TAB PO SCH (08:14)
[2020-12-11] MEDS: PANTOprazole 40 MG TAB PO SCH (08:14)
[2020-12-11] MEDS: SUCRALFATE 1 GM TAB PO SCH ×2 (08:14→12:37)
[2020-12-11] MEDS: SENNA 8.6 MG TAB PO SCH (08:15)
[2020-12-11] MEDS: POLYETHYLENE (MIRALAX) 17 GM PACK PO SCH (08:15)
--- NOTE | 2020-12-11 14:27 | Discharge Summary ---
Date of Service December 11, 2020 Admission HPI Per Admitting Provider Mr. Bradford is a 75 yo medically complicated gentleman who was brought in from home by EMS after suffering a fall. When EMS arrived he was laying on the kitchen floor below his sink - it appears as though he was doing dishes. He was reportedly unresponsive for a period of several minutes. There was no report of loss of bladder continence or tongue biting. His fingerstick blood sugar was 300. He lives alone, he pressed his med alert button to [facility]. At the time of arrival to the ED, Mr. Bradford was confused but arousable. When asked about the episode that lead to coming into the emergency department - he says he does not recall what happened. He does not recall falling or any prodromal symptoms. He does report striking his head on a kitchen cabinet and having a headache. He denies being sick in the days leading up to admission - although he does state that he has not been eating much. He was recently hospitalized for an aspiration pneumonia - he was told to consume a minced and moist diet by speech therapy during his last admission for severe oropharyngeal dysphagia, and he struggles to find food to prepare himself. He said his PCP recently told him he was extremely malnourished. He also admits to being very depressed over the past few weeks to months - he is supposed to be meeting with a therapist virtually on of this week. He does have a history of non-epileptic seizure disorder for which he is on Keppra and Topamax. He had a 48 hour EEG done at [facility] in October 2019, which showed no abnormalities. He follows locally with [facility]. He also has a history of CAD, a prosthetic aortic valve replacement and paroxysmal A-fib - he is anticoagulated on Coumadin. He had an echo at [facility] on 09/05/20 which showed normal LV systolic function, an EF of 60-65%, no regional wall motion abnormalities and mild mitral regurgitation. He had a repeat echo on 12/02/20 with [facility] - report indicates normal LV size and systolic function, with no regional wall motion abnormalities. Biplane EF is 60%. 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 Moderate concentric LV hypertrophy. Grade I diastolic dysfunction of the left ventricle. A well seated mechanical AVR noted, mild prosthetic valvular aortic regurgitation noted. While assessing the patient at bedside, he did have a 13-beat run of monomorphic V-tach. He was asymptomatic at the time. He was afebrile, HR was 69, BP was 111/69, RR 18, satting 95 on room air. His WBC was normal; Hgb was 11.7, up from 10.4 on previous checks. His INR was at goal at 2.6. Cr 1.49, BUN at 45. LFTs were WNL. Trop undetectable. COV19 neg. EKG showing sinus bradycardia at 59bpm. Head and C-spine CT showing no acute abnormalities. Cat scan of abdomen showing no acute pathology. Chest CT showing multifocal ground glass opacities, radiology recommending 4-6 week follow up to assess for resolution. Left Forearm Xray showing no acute fractures or dislocations. He was given his evening dose of Keppra and 1 liter of NSS. Admission Exam Per Admitting Provider Constitutional: WD/WN, vitals as above comfortable Follows commands Eyes: + anicteric sclerae ENMT: external ear and nose normal, oropharynx normal Neck: trachea midline Respiratory: normal respiratory effort, lungs clear to auscultation no cough Cardiovascular: Rate/Rhythm: regular rate; + abnormal rhythm (occasional early beat) Heart Sounds: normal S1, normal S2 and + abnormal opening sounds (systolic ejection click) Extremities: no pedal edema Gastrointestinal (Abdomen): normal bowel sounds, soft, nontender, no hepatosplenomegaly Musculoskeletal: Head/Neck/Chest: normocephalic and head atraumatic Skin: no rashes, warm and dry Neurologic: moves all extremities and + confused Speech / Cognition: normal speech Psychiatric: Orientation: alert, oriented to person, oriented to place and cooperative; + not oriented to time Principal Diagnosis Syncope Discharge Exam Constitutional: well-appearing, no acute distress HEENT: NCAT, no conjunctival injection CV: regular rhythm with the exception of an occasional premature beat, extremities well-perfused, no LE edema Resp: CTABL, no wheezes/rales/rhonchi appreciated, no increased work of breathing MSK: no gross deformities appreciated Skin: warm, dry, no rash appreciated Neuro: AOx4, no focal neurological deficits appreciated Discharge Data Allergies Allergy/AdvReac Type Severity Reaction Status Date / Time Iodinated Contrast Media Allergy Severe Anaphylaxis Verified 12/07/20 20:10 shellfish derived Allergy Severe Anaphylaxis Verified 12/07/20 20:10 tamsulosin [From Flomax] Allergy Intermediate Itching Unverified 12/07/20 20:10 Tetanus Vaccines and Toxoid Allergy Unknown Unknown Verified 12/07/20 20:10 Consultations 12/07/20 21:35 ED Decision to Admit Stat Ordered Studies 12/07/20 19:09 CT cervical spine wo con Stat CT head/brain wo con Stat 12/07/20 19:18 CT abd pelvis wo con Stat CT chest diagnostic wo con Stat Hospital Course (1) Syncopal episodes: Mr. Bradford is a 75 yo M with a history of non-epileptic seizure disorder and heart disease who was brought in by EMS after a syncopal episode yesterday. He is currently in no acute distress and asymptomatic. Syncope - Etiology remains unclear; no evidence of cardiac etiology, possibly neurologic though still no clear cause - Continue home antiepileptics - Replete electrolytes as indicated - Discharge to SNF - Continue PT/OT History of CVA - INR subtherapeutic (1.6, goal of 2-3); increased warfarin to 10mg daily - Recheck INR in three days (on 12/14/2020) SHYANN on CKD3a - Creatinine improved from 1.5 to 1.18 (baseline around 1.1) - Suspect pre-renal SHYANN secondary to poor PO intake - Trend BMP weekly T2DM - A1c 7.4% (10/12/20) - Continue home lantus + sliding scale insulin - Continue Trulicity, usually given every Sunday - Carb Consistent Diet; minced & moist - Continue high intensity statin Hypoalbuminemia - Albumin low at 3.3 on 12/07; likely secondary to reduced PO intake/failure to thrive - Boost supplements ordered CAD - Continue ASA + atorvasatin Parkinson's disease - Continue home dose sinemet RA - Continue weekly methotrexate and daily prednisone Gout - Continue home dose allopurinol Total Time Total Time Spent Total Time Spent (In Minutes): see attending documentation Discharge Plan Discharge Items Patient Disposition: Transfer Detention Fac Reason For Visit: SYNCOPE Discharge Diagnosis: Syncope Activity: Resume your previous activity Non-emergency contact: Primary Care Provider Call non-emergency contact if: you have any medication questions Follow-up/Referrals: Josh Gaspar MD [Primary Care Provider] - Diet: Carb Consistent or DM2 and Heart Healthy Addtl Attending Provider Instructions: Mr. Bradford is a 75 yo M with a history of non-epileptic seizure disorder and heart disease who was brought in by EMS after a syncopal episode yesterday. He is currently in no acute distress and asymptomatic. Syncope - Possibly neurologic or cardiac in origin - Continue home antiepileptics - Replete electrolytes as indicated - Discharge to SNF - Continue PT/OT History of CVA - INR subtherapeutic (1.6, goal of 2-3); increased warfarin to 10mg daily - Recheck INR in three days (on 12/14/2020) SHYANN on CKD3a - Creatinine improved from 1.5 to 1.18 (baseline around 1.1) - Suspect pre-renal SHYANN secondary to poor PO intake - Trend BMP weekly T2DM - A1c 7.4% (10/12/20) - Continue home lantus + sliding scale insulin - Continue Trulicity, usually given every Sunday - Carb Consistent Diet; minced & moist - Continue high intensity statin Hypoalbuminemia - Albumin low at 3.3 on 12/07; likely secondary to reduced PO intake/failure to thrive - Boost supplements ordered CAD - Continue ASA + atorvasatin Parkinson's disease - Continue home dose sinemet RA - Continue weekly methotrexate and daily prednisone Gout - Continue home dose allopurinol Pending Studies at Discharge: No Stand-Alone Forms: My [facility] [employer] Skilled Items Patient informed of condition?: Yes DNR: No Discharge Level of Care: Skilled Communicable Disease: No Discharge Prognosis: Stable Lines: None Urinary Catheter: No Medications and DC Order Prescriptions: Continued topiramate 100 mg tablet 100 mg PO BID 30 Days Qty: 60 RF: 5 levetiracetam 1,000 mg tablet 1,000 mg PO BID 90 Days Qty: 180 RF: 1 carbidopa-levodopa 25-100 mg tablet 0.5 tab PO TID Qty: 90 RF: 2 allopurinol 100 mg Tablet 100 mg PO HS RF: 0 nitroglycerin 0.4 mg Tablet, Sublingual 0.4 mg sublingual DIRECTED PRN (Reason: Chest Pain) RF: 0 albuterol sulfate [Ventolin HFA] 90 mcg/actuation Hfa Aerosol Inhaler 2 puff INHALATION Q4H PRN (Reason: Wheezing) RF: 0 Trulicity 1.5 mg/0.5 mL Pen Injector 1.5 mg SUBCUT WK RF: 0 cholecalciferol (vitamin D3) [Vitamin D3] 50 mcg (2,000 unit) Capsule 2,000 unit PO HS RF: 0 oohjmfn-scqyhnviv-nays 333-133-5 mg Tablet 1 tab PO HS RF: 0 atorvastatin 40 mg tablet 40 mg PO HS RF: 0 sucralfate 1 gram Tablet 1 g PO QID Qty: 20 RF: 0 guaifenesin [Mucinex] 600 mg Tablet Extended Release 12hr 600 mg PO Q12 Qty: 10 RF: 0 sennosides [Senokot] 8.6 mg tablet 8.6 mg PO QAM RF: 0 spironolactone 25 mg tablet 25 mg PO DAILY RF: 0 furosemide 20 mg tablet 20 mg PO DAILY RF: 0 prednisone 5 mg tablet 10 mg PO DAILY RF: 0 omeprazole 40 mg capsule,delayed release(DR/EC) 40 mg PO BID RF: 0 Lantus Solostar U-100 Insulin 100 unit/mL (3 mL) insulin pen 20 unit SUBCUT BID RF: 0 insulin aspart U-100 [Novolog Flexpen U-100 Insulin] 100 unit/mL (3 mL) insulin pen 0 unit SUBCUT ACHS RF: 0 gabapentin 300 mg capsule 600 mg PO BID RF: 0 aspirin [Adult Low Dose Aspirin] 81 mg tablet,delayed release (DR/EC) 81 mg PO QAM RF: 0 Anoro Ellipta 62.5-25 mcg/actuation blister with device 1 inh inhalation QAM RF: 0 famotidine 20 mg tablet 20 mg PO BID Qty: 20 RF: 0 ondansetron 4 mg tablet,disintegrating 4 mg PO Q6H PRN (Reason: nausea and vomiting) Qty: 14 RF: 0 oxycodone 5 mg tablet 5 mg PO Q6H PRN (Reason: pain) Qty: 12 RF: 0 docusate sodium [Colace] 100 mg capsule 100 mg PO BID Qty: 60 RF: 0 torsemide 20 mg tablet 20 mg PO DAILY Qty: 30 RF: 0 Changed warfarin 7.5 mg tablet 10 mg PO DAILY Qty: 0 RF: 0 Discharge Orders: Discharge Order (Routine); Ordered 12/11/20 Ordered By: Wilmer Ann Admission Data Admit Date/Time: 12/08/20 10:43 Attending Provider: Aidan Park Admit Provider: Tatyana Seay Primary Care Provider: Josh Gaspar Other Providers: Ana Dong ; [place] Other Interventions: Discharge Summary Assessment (RN) Last Done: 12/11/20 13:03 Supervising Physician Co-Signing Physician Notes Attending attestation Pt seen and examined in concert with Dr. Ann. In agreement with the documented findings as noted in the resident documentation with any exceptions or additions as noted here. Laying in bed without acute complaint at present. Able to ambulate with support without recurrence of syncopal symptoms, ongoing feelings of weakness attributed subjectively to deconditioning. On examination, S1/S2 nl RRR no MCG. CTAB. Abd NT/ND BS+ve Syncope - will merit further evaluation for occult cause despite extensive evaluation. Continue home antiepileptic regimen. h/o CVA w/ subtherapeutic INR - increased to 10mg on 12.11.20 for re-adjustment in 72 hours by outpatient team SHYANN on CKDIII - at baseline, recheck BMP at follow up Else see resident documentation as noted. Total attending time spent on this case on the day of discharge: 35 minutes. Resident Activity Tracking Resident Involvement: Resident Care Provided Care Provided: Adult Hospital Medicine
== END 2020-12-11 14:09 ==
LOC: 2N 18:57 → ED 18:57 → SUATTDRO 22:24 → 2N 22:54 → SUATTDRO 12-08 10:43

== ENCOUNTER 2021-01-09 07:30 | Inpatient (IN) ==
[2021-01-09] MEDS ORDERED: ACETAMINOPHEN 1000 MG/100 ML IV IV ONE (08:15)
--- NOTE | 2021-01-09 08:15 | Emergency Department Note ---
History of Present Illness General Chief complaint: Shortness of Breath/Dyspnea Stated complaint: BREATHING PROBLEMS, CHEST PAIN, FELL YESTERDAY Time Seen by Provider: 01/09/21 07:56 Source: patient, RN notes reviewed and old records reviewed Mode of arrival: ambulatory Limitations: no limitations History of Present Illness Maximum Pain Intensity: 7 This patient is a 75-year-old male who has a very complex medical history comes in after having increasing shortness of breath for last for 5 days. 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 He said no fever or chills. He has a nonproductive cough. He does have parkinsonian symptoms and fell twice once about a week ago and once yesterday said he got tangled up in his walker he has pain in his left chest and abdomen also his neck he may have his head last week. He is on anticoagulation. No syncope or focal numbness or weakness. He did have his aortic root repair replaced due to an aneurysm in the past. He has no blood or melena stool he has a mild headache. He did have his Covid vaccine Home Medications Medication Instructions Recorded Confirmed Type albuterol sulfate 90 mcg/actuation 2 puff INHALATION Q4H PRN 01/20/20 01/09/21 History aerosol inhaler (Ventolin HFA) allopurinol 100 mg tablet 100 mg PO HS 01/20/20 01/09/21 History cholecalciferol (vitamin D3) 50 2,000 unit PO HS 01/20/20 01/09/21 History mcg (2,000 unit) capsule (Vitamin D3) dulaglutide 1.5 mg/0.5 mL 1.5 mg SUBCUT WK 01/20/20 01/09/21 History subcutaneous pen injector (Trulicity) nitroglycerin 0.4 mg sublingual 0.4 mg SUBLINGUAL DIRECTED PRN 01/20/20 01/09/21 History tablet [id number] 333 mg-133 1 tab PO HS 02/05/20 01/09/21 History mg-5 mg tablet topiramate 100 mg tablet 100 mg PO BID 30 Days #60 tab 05/17/20 01/09/21 Rx atorvastatin 40 mg tablet 40 mg PO HS 05/28/20 01/09/21 History carbidopa 25 mg-levodopa 100 mg 0.5 tab PO TID #90 tab 07/02/20 01/09/21 Rx tablet insulin glargine 100 unit/mL (3 20 unit SUBCUT BID 07/10/20 01/09/21 History mL) subcutaneous pen (Lantus Solostar U-100 Insulin) insulin aspart U-100 100 unit/mL 0 unit SUBCUT ACHS 09/04/20 01/09/21 History (3 mL) subcutaneous pen (Novolog Flexpen U-100 Insulin aspart) aspirin 81 mg tablet,delayed 81 mg PO QAM 10/09/20 01/09/21 History release (Adult Low Dose Aspirin) ondansetron 4 mg disintegrating 4 mg PO Q6H PRN #14 tab 10/09/20 01/09/21 Rx tablet umeclidinium 62.5 mcg-vilanterol 1 inh INHALATION QAM 10/09/20 01/09/21 History 25 mcg/actuation powdr for inhalation (Anoro Ellipta) sennosides 8.6 mg tablet (Senokot) 8.6 mg PO QAM 10/19/20 01/09/21 History levetiracetam 1,000 mg tablet 1,000 mg PO BID 90 Days #180 tab 11/30/20 01/09/21 Rx furosemide 20 mg tablet 20 mg PO Q OTHER DAY 12/07/20 01/09/21 History prednisone 5 mg tablet 10 mg PO DAILY 12/07/20 01/09/21 History spironolactone 25 mg tablet 25 mg PO DAILY 12/07/20 01/09/21 History warfarin 7.5 mg tablet 10 mg PO DAILY #0 tab 12/11/20 01/09/21 Rx gabapentin 300 mg capsule 300 mg PO BID #180 cap 12/28/20 01/09/21 Rx torsemide 20 mg tablet 20 mg PO .COMPLEX tab 12/28/20 01/09/21 History Allergies Allergy/AdvReac Type Severity Reaction Status Date / Time Iodinated Contrast Media Allergy Severe Anaphylaxis Verified 01/09/21 08:41 shellfish derived Allergy Severe Anaphylaxis Verified 01/09/21 08:41 tamsulosin [From Flomax] Allergy Intermediate Itching Unverified 01/09/21 08:41 Tetanus Vaccines and Toxoid Allergy Unknown Unknown Verified 01/09/21 08:41 Past Med/Surg History Medical History Abnormal CT scan, chest Acute hyperglycemia Acute left-sided muscle weakness CAD (coronary artery disease) Chronic pulmonary aspiration Dehydration Diabetes Fall HLD (hyperlipidemia) Hypoxia Interstitial lung disease Interstitial lung disease due to connective tissue disease Lung nodule Neurogenic claudication Nocturnal hypoxia Palliative care encounter Polymyositis Polymyositis Prostate cancer s/p XRT Rheumatoid arthritis Rheumatoid arthritis Seizure-like activity Shortness of breath Stroke-like symptom 12/2019, w/ blurry vision and dysarthria. mild R sided wkness. attending outpatient physical therapy w/ good improvement in strength (5+/5 strength of all 4 extremities as of 05/28/20) Supratherapeutic INR Thoracic ascending aortic aneurysm s/p repair Weakness Surgical History H/O hernia repair History of aortic valve replacement mechanical History of cholecystectomy History of fusion of cervical spine History of gastric bypass lap band History of heart artery stent History of lung biopsy 2019 History of partial nephrectomy Family History Mother , age 87 of pulmonary issues Rheumatoid arthritis Father , in his mid 80s of a stroke Stroke Other Coronary heart disease Social History Smoking Status: Never smoker Second Hand Exposure: No; Hx Alcohol Use: No Hx Substance Use: No Preferred Language: Moroccan Communication Ability: Effective Hearing Ability: Hard of Hearing Supervisor Trust Accounts Required: No Beliefs That Will Affect Care: None marital status: / Current Living Situation: Alone Current Living Situation Comment: spends nights with son, has [employer] weekdays from 12-29 current occupational status: retired 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 [employer] Feels Safe at Home: Yes Assistive Devices: Walker Review of Systems A total of 10 systems reviewed and were otherwise negative Physical Exam Vital Signs Vital Signs - 24 hr 01/09/21 07:39 01/09/21 07:45 01/09/21 07:50 Temperature 37.3 C Temperature Source Temporal Artery Scan Pulse Rate 65 61 Pulse Rate from SpO2 Sensor 59 L Respiratory Rate 22 19 Respiratory Effort / Characteristics Short of Breath Blood Pressure 118/71 146/77 H Blood Pressure Mean 86 100 Blood Pressure Position Sitting Pulse Oximetry 97 94 96 Oxygen Delivery Method Room Air Room Air Room Air Oxygen Flow Rate 0 Sepsis Recent Fever Within 48 Hours No Sepsis New/Unexplained Change in Mental Status N/A Sepsis Action Taken by Nursing No Action Required 01/09/21 08:01 01/09/21 08:25 01/09/21 08:38 Temperature Temperature Source Pulse Rate Pulse Rate from SpO2 Sensor 64 Respiratory Rate 21 Respiratory Effort / Characteristics Non-Labored Spontaneous Non-Labored Spontaneous Blood Pressure 119/68 Blood Pressure Mean 85 Blood Pressure Position Pulse Oximetry 96 97 Oxygen Delivery Method Room Air Room Air Room Air Oxygen Flow Rate Sepsis Recent Fever Within 48 Hours Sepsis New/Unexplained Change in Mental Status Sepsis Action Taken by Nursing 01/09/21 09:08 01/09/21 09:30 01/09/21 10:00 Temperature Temperature Source Pulse Rate 82 Pulse Rate from SpO2 Sensor 83 Respiratory Rate 10 L Respiratory Effort / Characteristics Non-Labored Spontaneous Non-Labored Spontaneous Non-Labored Spontaneous Blood Pressure Blood Pressure Mean Blood Pressure Position Pulse Oximetry 96 96 Oxygen Delivery Method Room Air Room Air Room Air Oxygen Flow Rate Sepsis Recent Fever Within 48 Hours Sepsis New/Unexplained Change in Mental Status Sepsis Action Taken by Nursing 01/09/21 10:01 01/09/21 10:30 Temperature Temperature Source Pulse Rate 86 Pulse Rate from SpO2 Sensor 85 Respiratory Rate 17 Respiratory Effort / Characteristics Non-Labored Spontaneous Blood Pressure Blood Pressure Mean Blood Pressure Position Pulse Oximetry 96 Oxygen Delivery Method Room Air Room Air Oxygen Flow Rate Sepsis Recent Fever Within 48 Hours Sepsis New/Unexplained Change in Mental Status Sepsis Action Taken by Nursing General: Well developed well nourished chronically ill-appearing older male who in no acute distress, breathing comfortably on room air. Normal speech HEENT: Normal cephalic atraumatic. Pupils are equal round and reactive to light. Extraocular movements are intact. Oropharynx is pink with moist mucous membranes. No swelling of the mouth lips or tongue. Neck: Supple with a midline trachea. No meningeal signs or stiffness, no JVD or bruits. No Stridor. Chest: Clear to auscultation bilaterally. No wheezes or rhonchi. No increased work of breathing. Not severely tender palpation Heart: Regular rate and rhythm without murmurs or gallops. Abdomen: Soft nontender, nondistended without rebound guarding or rigidity. No external signs of trauma no significant tenderness Extremities: No cyanosis clubbing or edema. No calf tenderness or assymetry Spine/Back. Non tender to palpation. No CVA tenderness Skin: Good turgor without rashes. Neurologic exam: Cranial nerves two through 12 are intact. Motor and sensation are intact and symmetrical throughout. Course Administered Medications Albuterol (Albuterol 0.5% Neb Soln 2.5 Mg/0.5 Ml Vial) 2.5 mg NEB Q6R KIRSTEN Stop: 02/08/21 12:59 Last Admin: 01/09/21 13:13 Dose: 2.5 mg Documented by: [id number] Carbamide Peroxide (Carbamide Peroxide 6.5% 15 Ml Btl) 2 drops OT TID KIRSTEN Stop: 01/13/21 13:59 Last Admin: 01/09/21 13:46 Dose: 2 drops Documented by: [id number] Carbidopa/Levodopa (Carbidopa/Levodopa 25/100mg Tab) 0.5 tab PO TID KIRSTEN Stop: 02/08/21 13:59 Last Admin: 01/09/21 13:46 Dose: 0.5 tab Documented by: [id number] Lactated Ringer's (Lr) 1,000 mls @ 90 mls/hr IV .[id number] ONE Stop: 01/09/21 21:46 Last Admin: 01/09/21 11:04 Dose: 90 mls/hr Documented by: [id number] Insulin Aspart (Insulin Aspart 100 Units/Ml 3 Ml Pen) 0 units SC ACHS KIRSTEN Stop: 02/08/21 12:13 Last Admin: 01/09/21 13:44 Dose: 1 units Documented by: [id number] Cosigned by: [id number] Lidocaine (Lidocaine 5% 1 Patch) 1 patch TD QAM KIRSTEN Stop: 02/08/21 12:59 Last Admin: 01/09/21 13:46 Dose: 1 patch Documented by: [id number] Discontinued Medications Acetaminophen (Acetaminophen 1000 Mg/100 Ml Iv) 1,000 mg IV ONE ONE Stop: 01/09/21 08:16 Last Admin: 01/09/21 09:25 Dose: 1,000 mg Documented by: [id number] Azithromycin (Azithromycin 250 Mg Tab) 500 mg PO NOW ONE Stop: 01/09/21 10:18 Last Admin: 01/09/21 11:03 Dose: 500 mg Documented by: [id number] Piperacillin Sod/Tazobactam Sod (Zosyn) 4.5 gm in 120 mls @ 240 mls/hr IV NOW ONE Stop: 01/09/21 10:08 Last Infusion: 01/09/21 11:41 Dose: 0 mls/hr Documented by: [id number] Admin: 01/09/21 11:03 Dose: 240 mls/hr Documented by: [id number] Ondansetron HCl (Ondansetron Inj 2 Mg/Ml 2 Ml Vial) 4 mg IV NOW STA Stop: 01/09/21 10:48 Last Admin: 01/09/21 11:04 Dose: Not Given Documented by: [id number] Ondansetron HCl (Ondansetron Inj 2 Mg/Ml 2 Ml Vial) Confirm Administered Dose 4 mg .ROUTE .STK-MED ONE Stop: 01/09/21 10:51 Last Admin: 01/09/21 11:04 Dose: 4 mg Documented by: [id number] Medical Decision Making Differential Diagnosis Pneumonia, aspiration pneumonia, Covid, CHF, arrhythmia, trauma, PE, pneumothorax, electrolyte or metabolic abnormality, sepsis Medical Records Attestation: I reviewed the patient's medical records. Home Medications Current Medication List: was personally reviewed by me Laboratory Data Attestation: I reviewed the patient's lab results. Result diagrams: 01/09/21 08:00 01/09/21 08:00 Lab Results 01/09/21 01/09/21 01/09/21 Range/Units 07:54 08:00 08:00 WBC 6.24 (4.8-10.8) K/uL RBC 4.55 L (4.7-6.1) M/uL Hgb 12.0 L (14.0-18.0) g/dL Hct 38.8 L (42-52) % MCV 85.3 (80-100) fL MCH 26.4 (25-34) pg MCHC 30.9 L (32-36) g/dL RDW Std Deviation 52.5 H (36.4-46.3) fL RDW Coeff of Lianne 16.8 H (11.5-14.5) % Plt Count 175 (130-400) K/uL MPV 9.6 (7.4-10.4) fL Immature Gran % (Auto) 0.5 % Neut % (Auto) 73.7 % Lymph % (Auto) 16.8 % [place] % (Auto) 3.8 % Eos % (Auto) 5.0 % Baso % (Auto) 0.2 % Neut # (Auto) 4.60 (1.4-6.5) K/uL Lymph # (Auto) 1.05 L (1.2-3.4) K/uL [place] # (Auto) 0.24 (0.11-0.59) K/uL Eos # (Auto) 0.31 (0-0.5) K/uL Baso # (Auto) 0.01 (0-0.2) K/uL Immature Gran # (Auto) 0.03 H (0.00-0.02) K/uL PT 14.1 H (9.0-12.0) Seconds INR 1.4 H (0.9-1.1) APTT 27.2 (21.0-31.0) Seconds PTT Ratio 1.0 Sodium (136-145) mmol/L Potassium (3.5-5.1) mmol/L Chloride (98-107) mmol/L Carbon Dioxide (21-32) mmol/L Anion Gap (3-11) BUN (7-18) mg/dl Creatinine (0.6-1.4) mg/dl Est Cr Clr Drug Dosing ml/min Est GFR ( Amer) ml/min Est GFR (Non-Af Amer) ml/min BUN/Creatinine Ratio (10-20) Glucose (70-99) mg/dl POC Glucose 104 H (70-99) mg/dl Lactate (0.4-2.0) mmol/L Calcium (8.5-10.1) mg/dl Magnesium (1.8-2.4) mg/dl Total Bilirubin (0.2-1) mg/dl AST (15-37) U/L ALT (12-78) U/L Alkaline Phosphatase (45-117) U/L Troponin I (0-0.045) ng/ml Total Protein (6.4-8.2) gm/dl Albumin (3.4-5.0) gm/dl Globulin (2.5-4.0) gm/dl Albumin/Globulin Ratio (0.9-2) Procalcitonin (0-0.5) ng/ml COVID-19 Eval Order SARS-CoV-2 (PCR) (Negative) 01/09/21 01/09/21 01/09/21 Range/Units 08:00 08:00 08:10 WBC (4.8-10.8) K/uL RBC (4.7-6.1) M/uL Hgb (14.0-18.0) g/dL Hct (42-52) % MCV (80-100) fL MCH (25-34) pg MCHC (32-36) g/dL RDW Std Deviation (36.4-46.3) fL RDW Coeff of Lianne (11.5-14.5) % Plt Count (130-400) K/uL MPV (7.4-10.4) fL Immature Gran % (Auto) % Neut % (Auto) % Lymph % (Auto) % [place] % (Auto) % Eos % (Auto) % Baso % (Auto) % Neut # (Auto) (1.4-6.5) K/uL Lymph # (Auto) (1.2-3.4) K/uL [place] # (Auto) (0.11-0.59) K/uL Eos # (Auto) (0-0.5) K/uL Baso # (Auto) (0-0.2) K/uL Immature Gran # (Auto) (0.00-0.02) K/uL PT (9.0-12.0) Seconds INR (0.9-1.1) APTT (21.0-31.0) Seconds PTT Ratio Sodium 142 (136-145) mmol/L Potassium 3.8 (3.5-5.1) mmol/L Chloride 112 H (98-107) mmol/L Carbon Dioxide 23 (21-32) mmol/L Anion Gap 7.0 (3-11) BUN 42 H (7-18) mg/dl Creatinine 1.45 H (0.6-1.4) mg/dl Est Cr Clr Drug Dosing 55.6 ml/min Est GFR ( Amer) 54.2 ml/min Est GFR (Non-Af Amer) 46.8 ml/min BUN/Creatinine Ratio 29.2 H (10-20) Glucose 111 H (70-99) mg/dl POC Glucose (70-99) mg/dl Lactate (0.4-2.0) mmol/L Calcium 10.0 (8.5-10.1) mg/dl Magnesium 2.2 (1.8-2.4) mg/dl Total Bilirubin 0.5 (0.2-1) mg/dl AST 31 (15-37) U/L ALT 43 (12-78) U/L Alkaline Phosphatase 76 (45-117) U/L Troponin I < 0.015 (0-0.045) ng/ml Total Protein 7.1 (6.4-8.2) gm/dl Albumin 3.4 (3.4-5.0) gm/dl Globulin 3.7 (2.5-4.0) gm/dl Albumin/Globulin Ratio 0.9 (0.9-2) Procalcitonin 0.37 (0-0.5) ng/ml COVID-19 Eval Order Covid19 at [facility] SARS-CoV-2 (PCR) (Negative) 01/09/21 01/09/21 Range/Units 08:10 08:32 WBC (4.8-10.8) K/uL RBC (4.7-6.1) M/uL Hgb (14.0-18.0) g/dL Hct (42-52) % MCV (80-100) fL MCH (25-34) pg MCHC (32-36) g/dL RDW Std Deviation (36.4-46.3) fL RDW Coeff of Lianne (11.5-14.5) % Plt Count (130-400) K/uL MPV (7.4-10.4) fL Immature Gran % (Auto) % Neut % (Auto) % Lymph % (Auto) % [place] % (Auto) % Eos % (Auto) % Baso % (Auto) % Neut # (Auto) (1.4-6.5) K/uL Lymph # (Auto) (1.2-3.4) K/uL [place] # (Auto) (0.11-0.59) K/uL Eos # (Auto) (0-0.5) K/uL Baso # (Auto) (0-0.2) K/uL Immature Gran # (Auto) (0.00-0.02) K/uL PT (9.0-12.0) Seconds INR (0.9-1.1) APTT (21.0-31.0) Seconds PTT Ratio Sodium (136-145) mmol/L Potassium (3.5-5.1) mmol/L Chloride (98-107) mmol/L Carbon Dioxide (21-32) mmol/L Anion Gap (3-11) BUN (7-18) mg/dl Creatinine (0.6-1.4) mg/dl Est Cr Clr Drug Dosing ml/min Est GFR ( Amer) ml/min Est GFR (Non-Af Amer) ml/min BUN/Creatinine Ratio (10-20) Glucose (70-99) mg/dl POC Glucose (70-99) mg/dl Lactate 2.2 H* (0.4-2.0) mmol/L Calcium (8.5-10.1) mg/dl Magnesium (1.8-2.4) mg/dl Total Bilirubin (0.2-1) mg/dl AST (15-37) U/L ALT (12-78) U/L Alkaline Phosphatase (45-117) U/L Troponin I (0-0.045) ng/ml Total Protein (6.4-8.2) gm/dl Albumin (3.4-5.0) gm/dl Globulin (2.5-4.0) gm/dl Albumin/Globulin Ratio (0.9-2) Procalcitonin (0-0.5) ng/ml COVID-19 Eval Order SARS-CoV-2 (PCR) NEGATIVE (Negative) Imaging Data Attestation: I personally reviewed and interpreted this imaging study as follows: My Impression: Chest x-raycardiomegaly there is some atelectasis in the bases. No pneumothorax. Radiologist's Impression: Abdomen/Pelvis CT 01/09/21 08:08 CT chest diagnostic wo con, CT abd pelvis wo con CT DOSE: HISTORY: fall, left sided chest pain and left-sided abdominal pain. TECHNIQUE: Multiaxial CT images of the chest, abdomen, and pelvis were performed without contrast. A dose lowering technique was utilized adhering to the principles of ALARA. COMPARISON: Chest, abdomen, pelvis CT 12/07/2020. FINDINGS: Chest CT: There are poststernotomy changes. No acute fractures within the chest. No pneumothorax. Suture material within the base of the left lower lobe consistent with old postoperative change. Patchy airspace opacities within the lung bases have slightly progressed. Scattered subpleural nodular densities and a 4 mm nodule within the right upper lobe on image 128. The central airways are patent. Small hiatus hernia. Normal caliber thoracic aorta. No mediastinal lymphadenopathy or hematoma. The heart is normal in size. No pleural or pericardial effusions. Aortic valve prosthesis is again noted. Abdomen/pelvis CT: No pneumoperitoneum. No pneumatosis. No acute fractures identified within the abdomen or pelvis. There is L3-S1 posterior decompression and fusion with pedicle screws and rods. The hardware appears intact. Gastric lap band appears in good position. Mild pelvic floor collapse. Tiny hiatus hernia. Punctate calcifications within the pancreatic head, unchanged. Prior cholecystectomy. The unenhanced liver, spleen, and adrenal glands are unremarkable. There are few punctate left renal calculi. There is bilateral cortical renal scarring. No ureteral stones. No hydronephrosis. The bladder is unremarkable. A few brachytherapy seeds noted within the prostate gland. There is mild pelvic floor collapse. Colonic diverticulosis. No evidence for acute diverticulitis. Suboptimal evaluation for bowel pathology due to the lack of in travenous and oral contrast. However, there is no definite bowel wall thickening or obstruction. No retroperitoneal lymphadenopathy or hematoma. Normal caliber abdominal aorta. IMPRESSION: 1. No acute traumatic process within the chest, abdomen, or pelvis. 2. Patchy airspace opacities within the lower lobes most pronounced on the left. This has slightly progressed and may represent a pneumonitis or dependent change. 3. Scattered subpleural nodular densities including a 4 mm right upper lobe pulmonary nodule. This may be chronic or represent a mild pneumonitis. 4. Cholecystectomy. 5. Additional findings as described above. ACT 112: Negative or not required by law. Electronically signed by: Jc Che M.D. 01/09/2021 9:[address] 01/09/21 08:08 CT cervical spine wo con CLINICAL HISTORY: 75 years-old Male with fall. Acute head and neck injury status post fall COMPARISON: CT had of same day, CT cervical spine 12/07/2020 TECHNIQUE: Multiple axial CT images of the cervical spine were obtained without contrast. A dose lowering technique was utilized adhering to the principles of ALARA. FINDINGS: Anterior plate and screw fusion hardware with discectomy changes at C4-C5. There is approximately 75% bony fusion of this interspace. No evidence of hardware fracture or loosening. Severe multilevel facet arthrosis with bony fusion of the left C2-C3 facets. Spondylitic spurring is noted at multiple levels, most pronounced at C4-C5. Demineralized appearance of the bones. No acute fracture or subluxation. Multilevel neural foraminal narrowing. No prevertebral edema. Calcified plaque of the carotid bulbs. Lung apices are clear. Left greater than right mastoid effusions. IMPRESSION: No acute fracture or subluxation. ACT 112: Negative or not required by law. The above report was generated using voice recognition software. It may contain grammatical, syntax or spelling errors. Electronically signed by: Delvis Orozco M.D. 01/09/2021 9:[address] 01/09/21 08:08 CT chest diagnostic wo con, CT abd pelvis wo con CT DOSE: HISTORY: fall, left sided chest pain and left-sided abdominal pain. TECHNIQUE: Multiaxial CT images of the chest, abdomen, and pelvis were performed without contrast. A dose lowering technique was utilized adhering to the principles of ALARA. COMPARISON: Chest, abdomen, pelvis CT 12/07/2020. FINDINGS: Chest CT: There are poststernotomy changes. No acute fractures within the chest. No pneumothorax. Suture material within the base of the left lower lobe consistent with old postoperative change. Patchy airspace opacities within the l tal bases have slightly progressed. Scattered subpleural nodular densities and a 4 mm nodule within the right upper lobe on image 128. The central airways are patent. Small hiatus hernia. Normal caliber thoracic aorta. No mediastinal lymphadenopathy or hematoma. The heart is normal in size. No pleural or pericardial effusions. Aortic valve prosthesis is again noted. Abdomen/pelvis CT: No pneumoperitoneum. No pneumatosis. No acute fractures identified within the abdomen or pelvis. There is L3-S1 posterior decompression and fusion with pedicle screws and rods. The hardware appears intact. Gastric lap band appears in good position. Mild pelvic floor collapse. Tiny hiatus hernia. Punctate calcifications within the pancreatic head, unchanged. Prior cholecystectomy. The unenhanced liver, spleen, and adrenal glands are unremarkable. There are few punctate left renal calculi. There is bilateral cortical renal scarring. No ureteral stones. No hydronephrosis. The bladder is unremarkable. A few brachytherapy seeds noted within the prostate gland. There is mild pelvic floor collapse. Colonic diverticulosis. No evidence for acute diverticulitis. Suboptimal evaluation for bowel pathology due to the lack of intravenous and oral contrast. However, there is no definite bowel wall thickening or obstruction. No retroperitoneal lymphadenopathy or hematoma. Normal caliber abdominal aorta. IMPRESSION: 1. No acute traumatic process within the chest, abdomen, or pelvis. 2. Patchy airspace opacities within the lower lobes most pronounced on the left. This has slightly progressed and may represent a pneumonitis or dependent change. 3. Scattered subpleural nodular densities including a 4 mm right upper lobe pulmonary nodule. This may be chronic or represent a mild pneumonitis. 4. Cholecystectomy. 5. Additional findings as described above. ACT 112: Negative or not required by law. Electronically signed by: Jc Che M.D. 01/09/2021 9:31 AM Chest X-Ray 01/09/21 08:08 XR chest 1V portable HISTORY: 75 years-old Male sob, left sided cp pain . Acute atypical chest pain with shortness of breath COMPARISON: Chest CT of same day TECHNIQUE: Portable AP view of the chest FINDINGS: Cardiac silhouette is enlarged. Prior median sternotomy. No pneumothorax, large pleural effusion or overt pulmonary edema. Mild bibasilar densities. Degenerative changes of the shoulders and spine. IMPRESSION: Mild bibasilar densities suggestive of atelectasis versus pneumonitis. ACT 112: Negative or not required by law. The above report was generated using voice recognition software. It may contain grammatical, syntax or spelling errors. Electronically signed by: Delvis Orozco M.D. 01/09/2021 9:[address] 01/09/21 08:[address] DOSE: 3728.85 mGy.cm HISTORY: fall TECHNIQUE: Multiaxial CT images of the head were performed without the use of intravenous contrast. Automated exposure control was utilized for this study. A dose lowering technique was utilized adhering to the principles of ALARA. Comparison: Head CT 12/07/2020. Findings: The paranasal sinuses and right mastoid air cells remain clear. There is a trace left mastoid effusion, unchanged. The calvarium and skull base are intact. There is no mass, hematoma, midline shift, acute infarct. White matter hypodensity is nonspecific but suggestive of microvascular ischemic change. The ventricles and sulci demonstrate mild age-related involutional changes. Impression: No significant change compared to the prior study. No acute intracranial abnormality. ACT 112: Negative or not required by law. Electronically signed by: Jc Che M.D. 01/09/2021 9:19 AM ECG Data Attestation: I personally reviewed and interpreted this ECG as follows: Indication: + weakness Rate (beats per minute): 56 Rhythm: + sinus bradycardia ECG Intervals/blocks: + Normal QRS and + Normal QT ECG [place]: + Normal ECG ST segments: + Nonspecific ST abnormalities ECG Findings: + PACs Comparison ECG Date: from (12/07/20) Change: no significant change MDM Narrative This patient comes in as described above. He was placed on a laboratory monitor in room A10. He has multiple complaints. he has a very complex medical history and he has been falling he is also short of breath. He is 96% on room air and does not appear significantly tachypneic. IV asked established blood work was obtained I did a full sepsis type work-up as well as traumatic type work-up as well. Given the fact that he is allergic to contrast, I did CAT scans without contrast. He was Covid tested as well. He was given IV Tylenol as per his request. Covid testing was negative. Chest CT shows no PE but he likely has some aspiration pneumonia. He was given was Zosyn 4.5 g IV. EKG and cardiac work-up does not suggest acute coronary syndrome or significant arrhythmia. He has no significant electrolyte or metabolic abnormality. CAT scans did not show any evidence of any acute traumatic injury. I do think he is admitted for IV antibiotics further treatment evaluation lactic acid is mildly elevated as well. I have consulted Dr. Meraz to see the patient for these measures Continue cardiac monitoring: Orders placed in EMR for continuous laboratory monitor. Upon my interpretation was noted to be in sinus bradycardia with a rate of 60. Impression & Plan Sepsis, Chest pain, Aspiration pneumonia, Current use of long term care pharmacist anticoagulation, Fall, Lab test negative for COVID-19 virus Discharge Plan Visit Data Chief Complaint: Shortness of Breath/Dyspnea Stated Complaint: BREATHING PROBLEMS, CHEST PAIN, FELL YESTERDAY ED Provider: Britton Mccain Discharge Problem: Sepsis, Chest pain, Aspiration pneumonia, Current use of prison anticoagulation, Fall, Lab test negative for COVID-19 virus Patient Disposition: Admitted As Inpatient Discharge Instructions Interventions: ED Discharge Assessment Last Done: 01/09/21 11:44 Discharge Problem: Sepsis Qualifiers: Sepsis type: sepsis due to unspecified organism Sepsis acute organ dysfunction status: unspecified Qualified Code(s): A41.9 - Sepsis, unspecified organism Chest pain Qualifiers: Chest pain type: unspecified Qualified Code(s): R07.9 - Chest pain, unspecified Aspiration pneumonia Qualifiers: Aspiration pneumonia type: unspecified Laterality: unspecified laterality Lung location: unspecified part of lung Qualified Code(s): J69.0 - Pneumonitis due to inhalation of food and vomit Fall Qualifiers: Encounter type: initial encounter Qualified Code(s): W19.XXXA - Unspecified fall, initial encounter
[2021-01-09 08:20] LABS: Basophils # (auto) 0.01 K/uL (0-0.2); Basophils % (auto) 0.2 %; Eosinophils # (auto) 0.31 K/uL (0-0.5); Hematocrit (blood only) 38.8 % (42-52); Immature Granulocytes # (auto) 0.03 K/uL (0.00-0.02); Immature Granulocytes % (auto) 0.5 %; Lymphocytes # (auto) 1.05 K/uL (1.2-3.4); Lymphocytes % (auto) 16.8 %; Mean Corpuscular Hemoglobin 26.4 pg (25-34); Mean Corpuscular Hgb Conc 30.9 g/dL (32-36); Mean Corpuscular Volume 85.3 fL (80-100); Mean Platelet Volume 9.6 fL (7.4-10.4); Monocytes # (auto) 0.24 K/uL (0.11-0.59); Monocytes % (auto) 3.8 %; Neutrophils % (auto) 73.7 %; Platelet Count 175 K/uL (130-400); RDW Coefficient of Variation 16.8 % (11.5-14.5); RDW Standard Deviation 52.5 fL (36.4-46.3); Red Blood Count 4.55 M/uL (4.7-6.1); White Blood Count 6.24 K/uL (4.8-10.8)
[2021-01-09 08:32] LABS: INR 1.4 (0.9-1.1); Partial Thromboplastin Time 27.2 Seconds (21.0-31.0); Prothrombin Time 14.1 Seconds (9.0-12.0)
[2021-01-09 08:39] LABS: Alanine Aminotransferase 43 U/L (12-78); Albumin Level 3.4 gm/dl (3.4-5.0); Aspartate Aminotransferase 31 U/L (15-37); BUN Creatinine Ratio 29.2 (10-20); Blood Urea Nitrogen 42 mg/dl (7-18); Carbon Dioxide 23 mmol/L (21-32); Chloride 112 mmol/L (98-107); Creatinine Clr Calc Pharmacy 55.6 ml/min; Est GFR (African American) 54.2 ml/min; Est GFR (Non-African American) 46.8 ml/min; Glucose 111 mg/dl (70-99); Magnesium 2.2 mg/dl (1.8-2.4); Potassium 3.8 mmol/L (3.5-5.1); Sodium 142 mmol/L (136-145)
[2021-01-09 08:44] LABS: Albumin Globulin Ratio 0.9 (0.9-2); Alkaline Phosphatase 76 U/L (45-117); Bilirubin,Total 0.5 mg/dl (0.2-1); Globulin 3.7 gm/dl (2.5-4.0); Total Protein 7.1 gm/dl (6.4-8.2); Troponin I < 0.015 ng/ml (0-0.045)
--- NOTE | 2021-01-09 09:18 | XRay Report ---
XR chest 1V portable HISTORY: 75 years-old Male sob, left sided cp pain . Acute atypical chest pain with shortness of yamileth ath COMPARISON: Chest CT of same day TECHNIQUE: Portable AP view of the chest FINDINGS: Cardiac silhouette is enlarged. Prior median sternotomy. No pneumothorax, large pleural effusion or o vert pulmonary edema. Mild bibasilar densities. Degenerative changes of the shoulders and spine. IMPRESSION: Mild bibasilar densities suggestive of atelectasis versus pneumonitis. ACT 112: Negative or not required by law. The above report was generated using voice recognition software. It may contain grammatical, syntax o r spelling errors. Electronically signed by: Delvis Orozco M.D. 01/09/2021 9:16 AM
--- NOTE | 2021-01-09 09:20 | CT Scan Report ---
HEAD CT NONCONTRAST CT DOSE: 3728.85 mGy.cm HISTORY: fall TECHNIQUE: Multiaxial CT images of the head were performed without the use of intravenous contrast. A utomated exposure control was utilized for this study. A dose lowering technique was utilized adheri ng to the principles of ALARA. Comparison: Head CT 12/07/2020. Findings: The paranasal sinuses and right mastoid air cells remain clear. There is a trace left masto id effusion, unchanged. The calvarium and skull base are intact. There is no mass, hematoma, midline shift, acute infarct. White matter hypodensity is nonspecific but suggestive of microvascular ischemi c change. The ventricles and sulci demonstrate mild age-related involutional changes. Impression: No significant change compared to the prior study. No acute intracranial abnormality. ACT 112: Negative or not required by law. Electronically signed by: Jc Che M.D. 01/09/2021 9:19 AM
--- NOTE | 2021-01-09 09:21 | CT Scan Report ---
CT cervical spine wo con CLINICAL HISTORY: 75 years-old Male with fall. Acute head and neck injury status post fall COMPARISON: CT had of same day, CT cervical spine 12/07/2020 TECHNIQUE: Multiple axial CT images of the cervical spine were obtained without contrast. A dose low ering technique was utilized adhering to the principles of ALARA. FINDINGS: Anterior plate and screw fusion hardware with discectomy changes at C4-C5. There is approxi mately 75% bony fusion of this interspace. No evidence of hardware fracture or loosening. Severe mult ilevel facet arthrosis with bony fusion of the left C2-C3 facets. Spondylitic spurring is noted at mu ltiple levels, most pronounced at C4-C5. Demineralized appearance of the bones. No acute fracture or subluxation. Multilevel neural foraminal narrowing. No prevertebral edema. Calcified plaque of the carotid bulbs. Lung apices are clear. Left greater shashi n right mastoid effusions. IMPRESSION: No acute fracture or subluxation. ACT 112: Negative or not required by law. The above report was generated using voice recognition software. It may contain grammatical, syntax o r spelling errors. Electronically signed by: Delvis Orozco M.D. 01/09/2021 9:19 AM
--- NOTE | 2021-01-09 09:33 | CT Scan Report ---
CT chest diagnostic wo con, CT abd pelvis wo con CT DOSE: HISTORY: fall, left sided chest pain and left-sided abdominal pain. TECHNIQUE: Multiaxial CT images of the chest, abdomen, and pelvis were performed without contrast. A dose lowering technique was utilized adhering to the principles of ALARA. COMPARISON: Chest, abdomen, pelvis CT 12/07/2020. FINDINGS: Chest CT: There are poststernotomy changes. No acute fractures within the chest. No pneumothorax. Sut ure material within the base of the left lower lobe consistent with old postoperative change. Patchy airspace opacities within the lung bases have slightly progressed. Scattered subpleural nodular densi ties and a 4 mm nodule within the right upper lobe on image 128. The central airways are patent. Smal l hiatus hernia. Normal caliber thoracic aorta. No mediastinal lymphadenopathy or hematoma. The heart is normal in size. No pleural or pericardial effusions. Aortic valve prosthesis is again noted. Abdomen/pelvis CT: No pneumoperitoneum. No pneumatosis. No acute fractures identified within the abdo men or pelvis. There is L3-S1 posterior decompression and fusion with pedicle screws and rods. The schneider rdware appears intact. Gastric lap band appears in good position. Mild pelvic floor collapse. Tiny hi atus hernia. Punctate calcifications within the pancreatic head, unchanged. Prior cholecystectomy. Th e unenhanced liver, spleen, and adrenal glands are unremarkable. There are few punctate left renal ca lculi. There is bilateral cortical renal scarring. No ureteral stones. No hydronephrosis. The bladder is unremarkable. A few brachytherapy seeds noted within the prostate gland. There is mild pelvic issac or collapse. Colonic diverticulosis. No evidence for acute diverticulitis. Suboptimal evaluation for bowel pathology due to the lack of intravenous and oral contrast. However, there is no definite bowel wall thickening or obstruction. No retroperitoneal lymphadenopathy or hematoma. Normal caliber abdom inal aorta. IMPRESSION: 1. No acute traumatic process within the chest, abdomen, or pelvis. 2. Patchy airspace opacities within the lower lobes most pronounced on the left. This has slightly pr ogressed and may represent a pneumonitis or dependent change. 3. Scattered subpleural nodular densities including a 4 mm right upper lobe pulmonary nodule. This ma y be chronic or represent a mild pneumonitis. 4. Cholecystectomy. 5. Additional findings as described above. ACT 112: Negative or not required by law. Electronically signed by: Jc Che M.D. 01/09/2021 9:31 AM
[2021-01-09] MEDS ORDERED: PIPERACILL/TAZOBAC CONSULT ACTIVE PRN (09:39)
[2021-01-09] MEDS ORDERED: PIPERACILLIN/TAZOBACTAM 4.5 GM/120 ML BAG IV ONE (09:39)
[2021-01-09] MEDS ORDERED: AZITHROMYCIN 250 MG TAB PO ONE (10:17)
[2021-01-09] MEDS ORDERED: LACTATED RINGER'S 1,000 ML IV ONE (10:40)
--- NOTE | 2021-01-09 10:46 | History & Physical Report ---
Date of Service January 09, 2021 Assessment & Plan (1) SHYANN (acute kidney injury): Plan: SHYANN type II- baseline MANAGER GIFT, decrease PO intake with difficulty getting around at home post fall - LR at 90 ml/hr for 1 liter - follow daily BMP - Ua sample is pending, follow for infection, adjust ABX therapy as warranted (2) Pneumonitis: Plan: Chronic with aspiration - no acute changes on CXR and CT scan - Flutter valve and cough assist - Continue albuterol - schedule nebs for 24 hours - defer continuation to rounding team - Aspiration precautions - Azithromycin (3) Otitis media: Plan: Azithromycin 500mg x1 now and then continue 250 daily - add on dobarex - with effusion again noted on CT scan - left mastoid - Would recommend follow up for resolution with his hx of aortic valve replacement (4) Left-sided chest wall pain: Plan: S/p fall no evidence of contusion or rib fractures - add Lidoderm patches for allowing of deep breathing and coughing - Tylenol prn as well for pain (5) Interstitial lung disease: Plan: Continue with home inhalers - Not sure of recent PFTs previously trialed on Rituxan - Completed steroid course and Augmentin in September - Continue Anoro/equivalent, albuterol, - Used to get his care in [place] - Voiced some difficulty with his home oxygen unit in regards to supplies and service - case management consult placed (6) Diabetes: Plan: On insulin at home - Continue with basal bolus dosing - Lantus 20 units BID - Aspart sliding scale - CF 20 with ratio 1:10 - Follow (7) HLD (hyperlipidemia): Plan: Continue statin (8) History of aortic valve replacement: Plan: Subtherapeutic on INR today - Patient reports that he checks his INR at home and sends his results to PCP - he reports 3.5 on Sunday- dose held and resumed yesterday- he thinks he took 5mg yesterday - Will give 10mg today and recheck INR in morning- if remains subtherapeutic would give Lovenox - Continue BP control and diuretics (9) Subtherapeutic anticoagulation: Plan: As above- patient endorses he has been "all over the place for the past 2 months" - endorses weight loss since he has gone to rehab in the spring and tries protein shake supplementations - likely has some vitamin K in it- nutrition consult placed for education and supplementation evaluation. (10) PAF (paroxysmal atrial fibrillation): Plan: Rate controlled and NSR (11) Shortness of breath: Plan: chronic with his history of ILD/COPD - As above (12) Lower back pain: Plan: Chronic curently pain controlled - continue pred and tyelnol and neurontin (13) Parkinsonism: Plan: Continue Carbidopa/levodopa (14) Rheumatoid arthritis: Plan: Continue prednisone 10mg daily History of Present Illness Primary Care Provider: Josh Gaspar MD 75 YOM with complicated medical history to include Aortic root graft, Mechanical AVR in 2003 (Coumadin), Migraines, seizure history, neuropathy, ILD (on prednisone and Rituxan), HLD, DMII on insulin, Parkinson disease, lumbar fusion, and BPH. Patient was in house for 3 weeks following his L3-S1, and fusion in June for lumbar spinal stenosis with neurogenic claudication. Patient comes into the EMD today for complaints of left sided pain and dyspnea. "Hurts when I take a deep breath". The patient experienced another fall last week which he reports he got his feet tangled in his walker and fell on his left side of his chest and his couch. In the EMD the patient had complete CT scan of head, chest, abdomen and pelvis and cervical spine performed. He was also noted to have a mild SHYANN on his labs. He has been using his albuterol inhaler more frequently over the past 2 days because of his feeling of not being able to take a deep breath, this may explain his mild lactate of 2.2. The patient has endorsed mild headache and fullness in his left ear with some sinus congestion over the past week. The patient has chronic aspirtion and continues to have pneumonitis inflammation in the bases bilaterally. The patient will be admitted for observation overnight, will be placed on Azithromycin for his Left ear infection and pulmonary inflammation, will get pain control and pulmonary toileting with flutter valve for his left rib pain, will place on IVF for his SHYANN. PT/OT consult. Patient has had his COVID vaccine and his COVID test on admission is NEGATIVE. Allergies Allergy/AdvReac Type Severity Reaction Status Date / Time Iodinated Contrast Media Allergy Severe Anaphylaxis Verified 01/09/21 08:41 shellfish derived Allergy Severe Anaphylaxis Verified 01/09/21 08:41 tamsulosin [From Flomax] Allergy Intermediate Itching Unverified 01/09/21 08:41 Tetanus Vaccines and Toxoid Allergy Unknown Unknown Verified 01/09/21 08:41 Home Medications Medication Instructions Recorded Confirmed Type albuterol sulfate 90 mcg/actuation 2 puff INHALATION Q4H PRN 01/20/20 01/09/21 History aerosol inhaler (Ventolin HFA) allopurinol 100 mg tablet 100 mg PO HS 01/20/20 01/09/21 History cholecalciferol (vitamin D3) 50 2,000 unit PO HS 01/20/20 01/09/21 History mcg (2,000 unit) capsule (Vitamin D3) dulaglutide 1.5 mg/0.5 mL 1.5 mg SUBCUT WK 01/20/20 01/09/21 History subcutaneous pen injector (Trulicity) nitroglycerin 0.4 mg sublingual 0.4 mg SUBLINGUAL DIRECTED PRN 01/20/20 01/09/21 History tablet wkskhsi-zxufaslvf-gddd 333 mg-133 1 tab PO HS 02/05/20 01/09/21 History mg-5 mg tablet topiramate 100 mg tablet 100 mg PO BID 30 Days #60 tab 05/17/20 01/09/21 Rx atorvastatin 40 mg tablet 40 mg PO HS 05/28/20 01/09/21 History carbidopa 25 mg-levodopa 100 mg 0.5 tab PO TID #90 tab 07/02/20 01/09/21 Rx tablet insulin glargine 100 unit/mL (3 20 unit SUBCUT BID 07/10/20 01/09/21 History mL) subcutaneous pen (Lantus Solostar U-100 Insulin) insulin aspart U-100 100 unit/mL 0 unit SUBCUT ACHS 09/04/20 01/09/21 History (3 mL) subcutaneous pen (Novolog Flexpen U-100 Insulin aspart) aspirin 81 mg tablet,delayed 81 mg PO QAM 10/09/20 01/09/21 History release (Adult Low Dose Aspirin) ondansetron 4 mg disintegrating 4 mg PO Q6H PRN #14 tab 10/09/20 01/09/21 Rx tablet umeclidinium 62.5 mcg-vilanterol 1 inh INHALATION QAM 10/09/20 01/09/21 History 25 mcg/actuation powdr for inhalation (Anoro Ellipta) sennosides 8.6 mg tablet (Senokot) 8.6 mg PO QAM 10/19/20 01/09/21 History levetiracetam 1,000 mg tablet 1,000 mg PO BID 90 Days #180 tab 11/30/20 01/09/21 Rx furosemide 20 mg tablet 20 mg PO Q OTHER DAY 12/07/20 01/09/21 History prednisone 5 mg tablet 10 mg PO DAILY 12/07/20 01/09/21 History spironolactone 25 mg tablet 25 mg PO DAILY 12/07/20 01/09/21 History warfarin 7.5 mg tablet 10 mg PO DAILY #0 tab 12/11/20 01/09/21 Rx gabapentin 300 mg capsule 300 mg PO BID #180 cap 12/28/20 01/09/21 Rx torsemide 20 mg tablet 20 mg PO .COMPLEX tab 12/28/20 01/09/21 History Past Med/Surg History Medical History (Updated 01/10/21 @ 17:51 by Ankit Ortega MD) Abnormal CT scan, chest Abnormal CT scan, chest Acute hyperglycemia Acute left-sided muscle weakness CAD (coronary artery disease) Chronic pulmonary aspiration Dehydration Diabetes Fall HLD (hyperlipidemia) Hypoxia Interstitial lung disease Interstitial lung disease due to connective tissue disease Lung nodule Neurogenic claudication Nocturnal hypoxia Palliative care encounter Polymyositis Polymyositis Prostate cancer s/p XRT Rheumatoid arthritis Rheumatoid arthritis Seizure-like activity Shortness of breath Stroke-like symptom 12/2019, w/ blurry vision and dysarthria. mild R sided wkness. attending outpatient physical therapy w/ good improvement in strength (5+/5 strength of all 4 extremities as of 05/28/20) Supratherapeutic INR Thoracic ascending aortic aneurysm s/p repair Weakness Surgical History H/O hernia repair History of aortic valve replacement mechanical History of cholecystectomy History of fusion of cervical spine History of gastric bypass lap band History of heart artery stent History of lung biopsy 2019 History of partial nephrectomy Family History Mother , age 87 of pulmonary issues Rheumatoid arthritis Father , in his mid 80s of a stroke Stroke Other Coronary heart disease Social History Smoking Status: Never smoker Second Hand Exposure: No; Hx Alcohol Use: No Hx Substance Use: No Preferred Language: Spanish Communication Ability: Effective Hearing Ability: Hard of Hearing State Historical [employer] Director Required: No Beliefs That Will Affect Care: None marital status: / Current Living Situation: Alone Current Living Situation Comment: spends nights with son, has [employer] week from - current occupational status: retired 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 Feels Safe at Home: Yes Assistive Devices: Walker Review of Systems Review of Systems: REVIEW OF SYSTEMS: Constitutional: No fever, sweats or chills Eyes: No diplopia, no worsening or blurred vision ENT: (+) fullness left ear, sinus congestion, normal hearing, no trouble swallowing Respiratory: (+) dyspnea, Non productive cough, NO sputum, at rest or on exertion Cardiovascular: No chest pain, tightness or palpitations Abdomen: No pain, nausea, vomiting, diarrhea or constipation Musculoskeletal: (+) pain to left underarm, and upper chest down the left flank, No joint pain, calf pain, swelling Neurologic: No weakness, numbness/tingling, or balance problems Psychiatric: No anxiety or depression Skin: No rash or itch Physical Exam Physical Exam: PHYSICAL EXAM: General: awake, alert, no apparent distress Head: Normocephalic, atraumatic ENT: PERRL, EOMI, no pharyngeal exudate, mucous membranes dry, right ear with good cone of light and daley in color, left tympanic membrane with erythema and bulging. Neuro: AAO x 3, speech clear and appropriate, strength intact bilaterally 5/5, sensation intact and equal all extremities and dermatomes, no pronator drift Chest: equal rise and fall of the chest, no accessory muscle use, no heaves or thrills, scattered wheeze and fine crackles in the bases bilaterally, on room air, Cardiac: Regular rate and rhythm, telemetry reviewed, skin warm dry, cap refill <3 seconds, peripheral pulses +2 no JVD, no murmur, no JVD, no edema GI: NABS x 4 quadrants, soft, nontender to palpation, no rebound, guarding or tenderness : Spontaneously voiding, no pain, no CVA tenderness, Extremities: Normal inspection, no peripheral edema or erythema, calfs nontender to palpation Psych: Normal mood and affect Skin: no rash or erythema Results & Data Results & Data ([facility]) Vital Signs (Past 12 Hours) Vital Signs Temp Pulse Resp BP Pulse Ox 01/09/21 09:08 96 01/09/21 08:25 97 01/09/21 07:45 94 01/09/21 07:39 37.3 C 65 22 118/71 97 Laboratory Results Abnormal lab results 01/09/21 01/09/21 01/09/21 Range/Units 07:54 08:00 08:00 RBC 4.55 L (4.7-6.1) M/uL Hgb 12.0 L (14.0-18.0) g/dL Hct 38.8 L (42-52) % MCHC 30.9 L (32-36) g/dL RDW Std Deviation 52.5 H (36.4-46.3) fL RDW Coeff of Lianne 16.8 H (11.5-14.5) % Lymph # (Auto) 1.05 L (1.2-3.4) K/uL Immature Gran # (Auto) 0.03 H (0.00-0.02) K/uL PT 14.1 H (9.0-12.0) Seconds INR 1.4 H (0.9-1.1) Chloride (98-107) mmol/L BUN (7-18) mg/dl Creatinine (0.6-1.4) mg/dl BUN/Creatinine Ratio (10-20) Glucose (70-99) mg/dl POC Glucose 104 H (70-99) mg/dl Lactate (0.4-2.0) mmol/L 01/09/21 01/09/21 Range/Units 08:00 08:32 RBC (4.7-6.1) M/uL Hgb (14.0-18.0) g/dL Hct (42-52) % MCHC (32-36) g/dL RDW Std Deviation (36.4-46.3) fL RDW Coeff of Lianne (11.5-14.5) % Lymph # (Auto) (1.2-3.4) K/uL Immature Gran # (Auto) (0.00-0.02) K/uL PT (9.0-12.0) Seconds INR (0.9-1.1) Chloride 112 H (98-107) mmol/L BUN 42 H (7-18) mg/dl Creatinine 1.45 H (0.6-1.4) mg/dl BUN/Creatinine Ratio 29.2 H (10-20) Glucose 111 H (70-99) mg/dl POC Glucose (70-99) mg/dl Lactate 2.2 H* (0.4-2.0) mmol/L Diagnostic Findings Abdomen/Pelvis CT 01/09/21 08:08 CT chest diagnostic wo con, CT abd pelvis wo con CT DOSE: HISTORY: fall, left sided chest pain and left-sided abdominal pain. TECHNIQUE: Multiaxial CT images of the chest, abdomen, and pelvis were performed without contrast. A dose lowering technique was utilized adhering to the principles of ALARA. COMPARISON: Chest, abdomen, pelvis CT 12/07/2020. FINDINGS: Chest CT: There are poststernotomy changes. No acute fractures within the chest. No pneumothorax. Suture material within the base of the left lower lobe consistent with old postoperative change. Patchy airspace opacities within the lung bases have slightly progressed. Scattered subpleural nodular densities and a 4 mm nodule within the right upper lobe on image 128. The central airways are patent. Small hiatus hernia. Normal caliber thoracic aorta. No mediastinal lymphadenopathy or hematoma. The heart is normal in size. No pleural or pericardial effusions. Aortic valve prosthesis is again noted. Abdomen/pelvis CT: No pneumoperitoneum. No pneumatosis. No acute fractures identified within the abdomen or pelvis. There is L3-S1 posterior decompression and fusion with pedicle screws and rods. The hardware appears intact. Gastric lap band appears in good position. Mild pelvic floor collapse. Tiny hiatus hernia. Punctate calcifications within the pancreatic head, unchanged. Prior cholecystectomy. The unenhanced liver, spleen, and adrenal glands are unremarkable. There are few punctate left renal calculi. There is bilateral cortical renal scarring. No ureteral stones. No hydronephrosis. The bladder is unremarkable. A few brachytherapy seeds noted within the prostate gland. There is mild pelvic floor collapse. Colonic diverticulosis. No evidence for acute diverticulitis. Suboptimal evaluation for bowel pathology due to the lack of intravenous and oral contrast. However, there is no definite bowel wall thickening or obstruction. No retroperitoneal lymphadenopathy or hematoma. Normal caliber abdominal aorta. IMPRESSION: 1. No acute traumatic process within the chest, abdomen, or pelvis. 2. Patchy airspace opacities within the lower lobes most pronounced on the left. This has slightly progressed and may represent a pneumonitis or dependent change. 3. Scattered subpleural nodular densities including a 4 mm right upper lobe pulmonary nodule. This may be chronic or represent a mild pneumonitis. 4. Cholecystectomy. 5. Additional findings as described above. ACT 112: Negative or not required by law. Electronically signed by: Jc Che M.D. 01/09/2021 9:[address] 01/09/21 08:08 CT cervical spine wo con CLINICAL HISTORY: 75 years-old Male with fall. Acute head and neck injury status post fall COMPARISON: CT had of same day, CT cervical spine 12/07/2020 TECHNIQUE: Multiple axial CT images of the cervical spine were obtained without contrast. A dose lowering technique was utilized adhering to the principles of ALARA. FINDINGS: Anterior plate and screw fusion hardware with discectomy changes at C4-C5. There is approximately 75% bony fusion of this interspace. No evidence of hardware fracture or loosening. Severe multilevel facet arthrosis with bony fusion of the left C2-C3 facets. Spondylitic spurring is noted at multiple levels, most pronounced at C4-C5. Demineralized appearance of the bones. No acute fracture or subluxation. Multilevel neural foraminal narrowing. No prevertebral edema. Calcified plaque of the carotid bulbs. Lung apices are clear. Left greater than right mastoid effusions. IMPRESSION: No acute fracture or subluxation. ACT 112: Negative or not required by law. The above report was generated using voice recognition software. It may contain grammatical, syntax or spelling errors. Electronically signed by: Delvis Orozco M.D. 01/09/2021 9:[address] 01/09/21 08:08 CT chest diagnostic wo con, CT abd pelvis wo con CT DOSE: HISTORY: fall, left sided chest pain and left-sided abdominal pain. TECHNIQUE: Multiaxial CT images of the chest, abdomen, and pelvis were performed without contrast. A dose lowering technique was utilized adhering to the principles of ALARA. COMPARISON: Chest, abdomen, pelvis CT 12/07/2020. FINDINGS: Chest CT: There are poststernotomy changes. No acute fractures within the chest. No pneumothorax. Suture material within the base of the left lower lobe consistent with old postoperative change. Patchy airspace opacities within the lung bases have slightly progressed. Scattered subpleural nodular densities and a 4 mm nodule within the right upper lobe on image 128. The central airways are patent. Small hiatus hernia. Normal caliber thoracic aorta. No mediastinal lymphadenopathy or hematoma. The heart is normal in size. No pleural or pericardial effusions. Aortic valve prosthesis is again noted. Abdomen/pelvis CT: No pneumoperitoneum. No pneumatosis. No acute fractures identified within the abdomen or pelvis. There is L3-S1 posterior decompression and fusion with pedicle screws and rods. The hardware appears intact. Gastric lap band appears in good position. Mild pelvic floor collapse. Tiny hiatus hernia. Punctate calcifications within the pancreatic head, unchanged. Prior cholecystectomy. The unenhanced liver, spleen, and adrenal glands are unremarkable. There are few punctate left renal calculi. There is bilateral cortical renal scarring. No ureteral stones. No hydronephrosis. The bladder is unremarkable. A few brachytherapy seeds noted within the prostate gland. There is mild pelvic floor collapse. Colonic diverticulosis. No evidence for acute diverticulitis. Suboptimal evaluation for bowel pathology due to the lack of intravenous and oral contrast. However, there is no definite bowel wall thickening or obstruction. No retroperitoneal lymphadenopathy or hematoma. Normal caliber abdominal aorta. IMPRESSION: 1. No acute traumatic process within the chest, abdomen, or pelvis. 2. Patchy airspace opacities within the lower lobes most pronounced on the left. This has slightly progressed and may represent a pneumonitis or dependent change. 3. Scattered subpleural nodular densities including a 4 mm right upper lobe pulmonary nodule. This may be chronic or represent a mild pneumonitis. 4. Cholecystectomy. 5. Additional findings as described above. ACT 112: Negative or not required by law. Electronically signed by: Jc Che M.D. 01/09/2021 9:31 AM Chest X-Ray 01/09/21 08:08 XR chest 1V portable HISTORY: 75 years-old Male sob, left sided cp pain . Acute atypical chest pain with shortness of breath COMPARISON: Chest CT of same day TECHNIQUE: Portable AP view of the chest FINDINGS: Cardiac silhouette is enlarged. Prior median sternotomy. No pneumothorax, large pleural effusion or overt pulmonary edema. Mild bibasilar densities. Degenerative changes of the shoulders and spine. IMPRESSION: Mild bibasilar densities suggestive of atelectasis versus pneumonitis. ACT 112: Negative or not required by law. The above report was generated using voice recognition software. It may contain grammatical, syntax or spelling errors. Electronically signed by: Delvis Orozco M.D. 01/09/2021 9:[address] 01/09/21 08:[address] DOSE: 3728.85 mGy.cm HISTORY: fall TECHNIQUE: Multiaxial CT images of the head were performed without the use of intravenous contrast. Automated exposure control was utilized for this study. A dose lowering technique was utilized adhering to the principles of ALARA. Comparison: Head CT 12/07/2020. Findings: The paranasal sinuses and right mastoid air cells remain clear. There is a trace left mastoid effusion, unchanged. The calvarium and skull base are intact. There is no mass, hematoma, midline shift, acute infarct. White matter hypodensity is nonspecific but suggestive of microvascular ischemic change. The ventricles and sulci demonstrate mild age-related involutional changes. Impression: No significant change compared to the prior study. No acute intracranial abnormality. ACT 112: Negative or not required by law. Electronically signed by: Jc Che M.D. 01/09/2021 9:19 AM Medications Administered Discontinued Medications Acetaminophen (Acetaminophen 1000 Mg/100 Ml Iv) 1,000 mg IV ONE ONE Stop: 01/09/21 08:16 Last Admin: 01/09/21 09:25 Dose: 1,000 mg Documented by: [id number] ECG Additional Comments: Sinus rhythm with Premature atrial complexes Nonspecific ST abnormality Otherwise normal ECG When compared with ECG of 24-NOV-2020 12:28, No significant change was found Code Status & VTE Plan Code Status CODE: FULL VTE: SCDs, Ambulation, Warfarin Supervising Physician Co-Signing Physician Notes Attending addendum: I have physically seen this patient, have supervised the ALEXIS's activities, and agree with the H&P unless as otherwise noted. Assessment and Plan: Acute kidney injury- Creatinine 1.45 upon admission Placed on LR at 90 mils per hour for 1 L Repeat BMP and magnesium level in a.m. Follow urine culture and sensitivity for possible infection Pneumonitis/otitis media- History of chronic aspiration, but no new findings on chest x-ray or CT Flutter valve and CoughAssist Duonebs every 4 hours while awake and every 2 hours when necessary. Aspiration precautions Azithromycin 500 mg IV daily Debrox Remaining orders and notations as noted PG Care Time/CCT Total # of Minutes Spent Total Time Spent with Patient: Total time spent is greater than 50% in coordin ation of care (as documented) at patient's floor/unit and/or counseling patient: Coding Level of Care Code INT OBSERVATION CARE 70M LVL 3 Diagnoses SHYANN (acute kidney injury) N17.9 Pneumonitis J18.9 Left-sided chest wall pain R07.89 Interstitial lung disease J84.9 Diabetes E11.42; Z79.4 Diabetes mellitus complication detail: with polyneuropathy Diabetes mellitus complication status: with neurologic complications Diabetes mellitus termite control representative insulin use: with termite control representative use Diabetes mellitus type: type 2 HLD (hyperlipidemia) E78.2 Hyperlipidemia type: mixed hyperlipidemia History of aortic valve replacement Z95.2 PAF (paroxysmal atrial fibrillation) I48.0 Shortness of breath R06.02 Lower back pain M54.5 Back pain laterality: midline Chronicity: acute Sciatica presence: without sciatica Parkinsonism G20 Parkinsonism type: unspecified Rheumatoid arthritis M06.9 Otitis media H66.90 Subtherapeutic anticoagulation Z51.81; Z79.01 (1) Lower back pain Back pain laterality: midline Chronicity: acute Sciatica presence: without sciatica Qualified Code(s): M54.5 - Low back pain (2) Diabetes Diabetes mellitus complication detail: with polyneuropathy Diabetes mellitus complication status: with neurologic complications Diabetes mellitus termite control representative insulin use: with retirement use Diabetes mellitus type: type 2 Qualified Code(s): E11.42 - Type 2 diabetes mellitus with diabetic polyneuropathy; Z79.4 - termite control representative (current) use of insulin (3) HLD (hyperlipidemia) Hyperlipidemia type: mixed hyperlipidemia Qualified Code(s): E78.2 - Mixed hyperlipidemia (4) Parkinsonism Parkinsonism type: unspecified Qualified Code(s): G20 - Parkinson's disease
[2021-01-09] MEDS ORDERED: ONDANSETRON INJ 2 MG/ML 2 ML VIAL IV STA (10:47)
[2021-01-09] MEDS ORDERED: ONDANSETRON INJ 2 MG/ML 2 ML VIAL ONE (10:50)
[2021-01-09] MEDS ORDERED: DEXTROSE 50% 50 ML SYRINGE IV PRN (12:14)
[2021-01-09] MEDS ORDERED: GLUCOSE 40% GEL 15 GM TUBE PO PRN (12:14)
[2021-01-09] MEDS ORDERED: GLUCOSE 10 TABS/TUBE PO PRN (12:14)
[2021-01-09] MEDS ORDERED: GLUCAGON FOR INJ 1 MG VIAL SQ PRN (12:14)
[2021-01-09] MEDS ORDERED: CARBOHYDRATES FOR HYPOGLYCEMIA PO PRN (12:14)
[2021-01-09] MEDS ORDERED: NITROGLYCERIN SL 0.4 MG/TAB TAB SL PRN (12:14)
[2021-01-09] MEDS ORDERED: ONDANSETRON 4 MG OD TAB PO PRN (12:49)
[2021-01-09] MEDS: ALBUTEROL 0.5% NEB SOLN 2.5 MG/0.5 ML VIAL NEB SCH ×3 (13:13→23:46)
[2021-01-09] MEDS: INSULIN ASPART 100 UNITS/ML 3 ML PEN SC SCH ×3 (13:44→21:52)
[2021-01-09] MEDS: CARBIDOPA/LEVODOPA 25/100MG TAB PO SCH ×2 (13:46→21:50)
[2021-01-09] MEDS: CARBAMIDE PEROXIDE 6.5% 15 ML BTL OT SCH ×2 (13:46→21:54)
[2021-01-09] MEDS: LIDOCAINE 5% 1 PATCH TD SCH (13:46)
[2021-01-09] MEDS: ACETAMINOPHEN 325 MG TAB PO PRN ×2 (15:37→21:59)
[2021-01-09 21:28] LABS: Appearance Urine Clear (Clear); Bilirubin Urine Negative (Negative); Blood Urine Negative (Negative); Color Urine Yellow; Glucose Urine UA Negative (Negative); Ketones Urine Negative (Negative); Leukocyte Esterase Urine Negative (Negative); Nitrite Urine Negative (Negative); Protein Urine Negative (Negative); Specific Gravity Urine 1.025 (1.000-1.030); Urobilinogen Urine Negative (Negative); pH Urine 5.5 (4.5-7.5)
[2021-01-09] MEDS: levETIRAcetam 500 MG TAB PO SCH (21:50)
[2021-01-09] MEDS: GABAPENTIN 300 MG CAP PO SCH (21:50)
[2021-01-09] MEDS: ATORVASTATIN 40 MG TAB PO SCH (21:50)
[2021-01-09] MEDS: INSULIN GLARGINE SOLOSTAR 100 UNITS/ML 3 ML PEN SQ SCH (21:51)
[2021-01-09] MEDS: TOPIRAMATE 100 MG TAB PO SCH (21:51)
[2021-01-10] MEDS: ALBUTEROL 0.5% NEB SOLN 2.5 MG/0.5 ML VIAL NEB SCH (07:56)
[2021-01-10] MEDS: ACETAMINOPHEN 325 MG TAB PO PRN ×2 (08:01→21:32)
[2021-01-10] MEDS ORDERED: predniSONE 10 MG TABLET PO SCH (09:00)
[2021-01-10] MEDS ORDERED: SPIRONOLACTONE 25 MG TAB PO SCH (09:00)
[2021-01-10] MEDS: ASPIRIN 81 MG ECTAB PO SCH (09:15)
[2021-01-10] MEDS: AZITHROMYCIN 250 MG TAB PO SCH (09:15)
[2021-01-10] MEDS: GABAPENTIN 300 MG CAP PO SCH ×2 (09:16→20:02)
[2021-01-10] MEDS: levETIRAcetam 500 MG TAB PO SCH ×2 (09:17→20:02)
[2021-01-10] MEDS: CARBIDOPA/LEVODOPA 25/100MG TAB PO SCH ×3 (09:17→20:04)
[2021-01-10] MEDS: CARBAMIDE PEROXIDE 6.5% 15 ML BTL OT SCH ×3 (09:18→20:03)
[2021-01-10] MEDS: LIDOCAINE 5% 1 PATCH TD SCH (09:18)
[2021-01-10] MEDS: TOPIRAMATE 100 MG TAB PO SCH ×2 (09:18→20:02)
[2021-01-10] MEDS: UMECLIDINIUM/VILANTEROL 62.5/25MCG 7 PUFFS/INHALER INH SCH (09:19)
[2021-01-10] MEDS: INSULIN ASPART 100 UNITS/ML 3 ML PEN SC SCH ×4 (09:21→21:27)
[2021-01-10] MEDS: INSULIN GLARGINE SOLOSTAR 100 UNITS/ML 3 ML PEN SQ SCH (09:22)
[2021-01-10 09:24] LABS: Basophils # (auto) 0.01 K/uL (0-0.2); Basophils % (auto) 0.2 %; Eosinophils # (auto) 0.19 K/uL (0-0.5); Eosinophils % (auto) 3.5 %; Hematocrit (blood only) 32.7 % (42-52); Hemoglobin 10.1 g/dL (14.0-18.0); Immature Granulocytes # (auto) 0.02 K/uL (0.00-0.02); Immature Granulocytes % (auto) 0.4 %; Lymphocytes # (auto) 0.99 K/uL (1.2-3.4); Lymphocytes % (auto) 18.5 %; Mean Corpuscular Hemoglobin 26.4 pg (25-34); Mean Corpuscular Hgb Conc 30.9 g/dL (32-36); Mean Corpuscular Volume 85.4 fL (80-100); Mean Platelet Volume 9.4 fL (7.4-10.4); Monocytes # (auto) 0.28 K/uL (0.11-0.59); Monocytes % (auto) 5.2 %; Neutrophils # (auto) 3.87 K/uL (1.4-6.5); Neutrophils % (auto) 72.2 %; Platelet Count 142 K/uL (130-400); RDW Coefficient of Variation 17.3 % (11.5-14.5); RDW Standard Deviation 54.3 fL (36.4-46.3); Red Blood Count 3.83 M/uL (4.7-6.1); White Blood Count 5.36 K/uL (4.8-10.8)
[2021-01-10 09:34] LABS: INR 1.7 (0.9-1.1); Prothrombin Time 16.9 Seconds (9.0-12.0)
[2021-01-10 09:56] LABS: BUN Creatinine Ratio 23.4 (10-20); Calcium 8.5 mg/dl (8.5-10.1); Creatinine Clr Calc Pharmacy 57.1 ml/min; Est GFR (African American) 56.1 ml/min; Est GFR (Non-African American) 48.4 ml/min
[2021-01-10] MEDS ORDERED: ALBUTEROL 0.5% NEB SOLN 2.5 MG/0.5 ML VIAL NEB PRN (10:26)
--- NOTE | 2021-01-10 14:56 | Electrocardiogram Report ---
Test Reason : Blood Pressure : / mmHG Vent. Rate : 056 BPM Atrial Rate : 056 BPM P-R Int : 114 ms QRS Dur : 086 ms QT Int : 440 ms P-R-T Axes : 015 013 085 degrees QTc Int : 424 ms Sinus bradycardia with Premature atrial complexes Otherwise normal ECG When compared with ECG of 07-DEC-2020 19:06, No significant change was found Confirmed by Josh Vora ([id number]) on 01/10/2021 2:55:52 PM Referred By: REFERRED SELF Confirmed By:Josh Vora
[2021-01-10] MEDS: WARFARIN SOD 10 MG TAB PO SCH (16:52)
--- NOTE | 2021-01-10 17:33 | XRay Report ---
XR hip RT min 2V CLINICAL HISTORY: Right groin pain s/p fall r/o fracture COMPARISON: August 31, 2020 DISCUSSION: No definite acute fracture dislocation is seen however evaluation is suboptimal due to di ffuse osteopenia and underpenetration. Partially visualized orthopedic hardware within lower lumbar s pine is seen. IMPRESSION: No definite acute fracture dislocation, suboptimal study. ACT 112: Negative or not required by law. The above report was generated using voice recognition software. It may contain grammatical, syntax o r spelling errors. Electronically signed by: Cecilia Kyle DO 01/10/2021 5:32 PM
--- NOTE | 2021-01-10 17:45 | Pulmonary Consultation ---
Date of Consultation January 10, 2021 Assessment & Plan (1) Pneumonitis: 75-year-old male with a history of interstitial lung disease, polymyositis and rheumatoid arthritis who presented to the hospital due to increasing shortness of breath. He is currently on azithromycin. Symptoms are mildly improved. We will increase his prednisone to 40 mg for 5 days for possible mild ILD flare. Recommend dropping him back to 10 mg after 5 days of treatment. He should continue to closely follow with his engineering aid regarding immunosuppressive therapy. Thank you for the consultation. We will continue to follow along with you. (2) Abnormal CT scan, chest: History of Present Illness Reason for Consultation: Concern for cute exacerbation of ILD Attending Physician: Toni Goldsmith MD History of Present Illness 75-year-old male with a history of polymyositis, rheumatoid arthritis and interstitial lung disease. He is followed in the pulmonary clinic and has been seen by me and PETRA Ho. He has had numerous readmissions to the hospital due to chronic aspiration pneumonitis. He presents this time due to left-sided chest pain and shortness of breath. A CT chest was completed on 12/09/2020 which demonstrated slightly progressive pneumonitis changes. Patient feels mildly improved since hospitalization. He is currently room air saturating 91%. No fevers or chills. He is on azithromycin 250 mg every morning. He is chronically on 5 mg prednisone. He denies any hemoptysis. Allergies Allergy/AdvReac Type Severity Reaction Status Date / Time Iodinated Contrast Media Allergy Severe Anaphylaxis Verified 01/09/21 08:41 shellfish derived Allergy Severe Anaphylaxis Verified 01/09/21 08:41 tamsulosin [From Flomax] Allergy Intermediate Itching Unverified 01/09/21 08:41 Tetanus Vaccines and Toxoid Allergy Unknown Unknown Verified 01/09/21 08:41 Home Medications Medication Instructions Recorded Confirmed Type albuterol sulfate 90 mcg/actuation 2 puff INHALATION Q4H PRN 01/20/20 01/09/21 History aerosol inhaler (Ventolin HFA) allopurinol 100 mg tablet 100 mg PO HS 01/20/20 01/09/21 History cholecalciferol (vitamin D3) 50 2,000 unit PO HS 01/20/20 01/09/21 History mcg (2,000 unit) capsule (Vitamin D3) dulaglutide 1.5 mg/0.5 mL 1.5 mg SUBCUT WK 01/20/20 01/09/21 History subcutaneous pen injector (Trulicity) nitroglycerin 0.4 mg sublingual 0.4 mg SUBLINGUAL DIRECTED PRN 01/20/20 01/09/21 History tablet tqqcodx-jgpiflblq-dndk 333 mg-133 1 tab PO HS 02/05/20 01/09/21 History mg-5 mg tablet topiramate 100 mg tablet 100 mg PO BID 30 Days #60 tab 05/17/20 01/09/21 Rx atorvastatin 40 mg tablet 40 mg PO HS 05/28/20 01/09/21 History carbidopa 25 mg-levodopa 100 mg 0.5 tab PO TID #90 tab 07/02/20 01/09/21 Rx tablet insulin glargine 100 unit/mL (3 20 unit SUBCUT BID 07/10/20 01/09/21 History mL) subcutaneous pen (Lantus Solostar U-100 Insulin) insulin aspart U-100 100 unit/mL 0 unit SUBCUT ACHS 09/04/20 01/09/21 History (3 mL) subcutaneous pen (Novolog Flexpen U-100 Insulin aspart) aspirin 81 mg tablet,delayed 81 mg PO QAM 10/09/20 01/09/21 History release (Adult Low Dose Aspirin) ondansetron 4 mg disintegrating 4 mg PO Q6H PRN #14 tab 10/09/20 01/09/21 Rx tablet umeclidinium 62.5 mcg-vilanterol 1 inh INHALATION QAM 10/09/20 01/09/21 History 25 mcg/actuation powdr for inhalation (Anoro Ellipta) sennosides 8.6 mg tablet (Senokot) 8.6 mg PO QAM 10/19/20 01/09/21 History levetiracetam 1,000 mg tablet 1,000 mg PO BID 90 Days #180 tab 11/30/20 01/09/21 Rx furosemide 20 mg tablet 20 mg PO Q OTHER DAY 12/07/20 01/09/21 History prednisone 5 mg tablet 10 mg PO DAILY 12/07/20 01/09/21 History spironolactone 25 mg tablet 25 mg PO DAILY 12/07/20 01/09/21 History warfarin 7.5 mg tablet 10 mg PO DAILY #0 tab 12/11/20 01/09/21 Rx gabapentin 300 mg capsule 300 mg PO BID #180 cap 12/28/20 01/09/21 Rx torsemide 20 mg tablet 20 mg PO .COMPLEX tab 12/28/20 01/09/21 History Patient History Medical History (Updated 01/10/21 @ 17:51 by Ankit Ortega MD) Abnormal CT scan, chest Abnormal CT scan, chest Acute hyperglycemia Acute left-sided muscle weakness CAD (coronary artery disease) Chronic pulmonary aspiration Dehydration Diabetes Fall HLD (hyperlipidemia) Hypoxia Interstitial lung disease Interstitial lung disease due to connective tissue disease Lung nodule Neurogenic claudication Nocturnal hypoxia Palliative care encounter Polymyositis Polymyositis Prostate cancer s/p XRT Rheumatoid arthritis Rheumatoid arthritis Seizure-like activity Shortness of breath Stroke-like symptom 12/2019, w/ blurry vision and dysarthria. mild R sided wkness. attending outpatient physical therapy w/ good improvement in strength (5+/5 strength of all 4 extremities as of 05/28/20) Supratherapeutic INR Thoracic ascending aortic aneurysm s/p repair Weakness Surgical History H/O hernia repair History of aortic valve replacement mechanical History of cholecystectomy History of fusion of cervical spine History of gastric bypass lap band History of heart artery stent History of lung biopsy 2019 History of partial nephrectomy Family History Mother , age 87 of pulmonary issues Rheumatoid arthritis Father , in his mid 80s of a stroke Stroke Other Coronary heart disease Social History Smoking Status: Never smoker Second Hand Exposure: No; Hx Alcohol Use: No Hx Substance Use: No Preferred Language: [place] Communication Ability: Effective Hearing Ability: Hard of Hearing Presentation Specialist Required: No Beliefs That Will Affect Care: None marital status: / Current Living Situation: Alone Current Living Situation Comment: spends nights with son, has [employer] week from 12-29 current occupational status: retired 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 Laying in bed. Eyes: Pupils are equal round and reactive to light. Conjunctivae are normal. Anicteric sclera. Ears nose, mouth and throat: No obvious deformities noted. Neck: Trachea is midline. Visual inspection is normal. Respiratory: Clear to auscultation bilaterally. No use of accessory muscles. No significant clubbing noted. Cardiovascular: Regular rate and rhythm. No murmurs. No edema. Gastrointestinal: Normal bowel sounds, soft, nontender and nondistended. No hepatosplenomegaly noted. Musculoskeletal: No cyanosis. Patient is able to move all extremities. Strength is 5 out of 5 in the upper and lower extremities. Skin: No rashes, warm dry and intact. Neurologic: No obvious focal neurological deficits seen. Psychiatric: Alert and oriented x3 with a euthymic affect. Results & Data Results & Data ([facility]) Vital Signs (Past 12 Hours) Vital Signs Temp Pulse Resp BP BP Pulse Ox 01/10/21 15:11 98.4 F 87 16 98/68 L 91 01/10/21 12:16 84 94/59 L 94 01/10/21 07:58 86 18 94 01/10/21 07:08 98.6 F 83 16 94/56 L 93 PG Care Time/CCT Total # of Minutes Spent Total Time Spent with Patient: Total time spent is greater than 50% in coordination of care (as documented) at patient's floor/unit and/or counseling patient: Coding Level of Care Code 18049 Initial Inpt Care Lvl 2 Diagnoses Pneumonitis J18.[address] scan, chest R93.89
[2021-01-10] MEDS ORDERED: PHARMACY GLYCEMIC MGMT CONSULT PRN (17:57)
--- NOTE | 2021-01-10 18:05 | Hospitalist Progress Note ---
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 Unclear indication for these and suspect taking for venous insufficiency. No ascites on CT. (2) Pneumonitis: Plan: Chronic with aspiration - no acute changes on CXR and CT scan - Flutter valve and cough assist - Continue albuterol - schedule nebs for 24 hours - defer continuation to rounding team - Aspiration precautions - Azithromycin - Consult pulmonology (3) Otitis media: Plan: Azithromycin 500mg x1 now and then continue 250 daily - add on dobarex - with effusion again noted on CT scan - left mastoid, no pain over thi area (4) Left-sided chest wall pain: Plan: S/p fall no evidence of contusion or rib fractures - add Lidoderm patches for allowing of deep breathing and coughing - Tylenol prn as well for pain (5) Interstitial lung disease: Plan: Continue with home inhalers - Not sure of recent PFTs previously trialed on Rituxan - Completed steroid course and Augmentin in September - Continue Anoro/equivalent, albuterol, - Used to get his care in [place] - Voiced some difficulty with his home oxygen unit in regards to supplies and service - case management consult placed - consult pulmonology (6) Diabetes: Plan: On insulin at home - Continue with basal bolus dosing - Lantus 20 units BID - Aspart sliding scale - CF 20 with ratio 1:10 - Follow (7) HLD (hyperlipidemia): Plan: Continue statin (8) History of aortic valve replacement: Plan: Subtherapeutic on INR today - Patient reports that he checks his INR at home and sends his results to PCP - he reports 3.5 on Sunday- dose held and resumed yesterday- he thinks he took 5mg yesterday - No warfarin given yesterday on EHR. Will give 10mg today and recheck INR in morning - Continue BP control and diuretics (9) Subtherapeutic anticoagulation: Plan: As above- patient endorses he has been "all over the place for the past 2 months" - endorses weight loss since he has gone to rehab in the spring and tries protein shake supplementations - likely has some vitamin K in it- nutrition consult placed for education and supplementation evaluation. (10) PAF (paroxysmal atrial fibrillation): Plan: Rate controlled and NSR (11) Shortness of breath: Plan: chronic with his history of ILD/COPD - As above (12) Lower back pain: Plan: Chronic currently pain controlled - continue pred and Tylenol and Neurontin (13) Parkinsonism: Plan: Continue Carbidopa/levodopa (14) Rheumatoid arthritis: Plan: Continue prednisone 10mg daily Admission and Anticipated Discharge Date Admission Date: January 09, 2021 Subjective Ongoing left sided chest pain but improved since admission. Reports last fall on Sunday prior to admission. Falls similar in nature. Reports catching his walker on furniture. He does note ongoing dizziness when standing but does not feel this is significantly contributing towards his falling. Right groin pain since his last fall. Updated his son over the phone. Review of Systems Review of Systems: All systems reviewed & are unremarkable except as noted in HPI & below Physical Exam Constitutional: WD/WN, vitals as above Respiratory: normal respiratory effort Auscultation: + crackles (fine throughout) Cardiovascular: RRR, no murmur, no edema Gastrointestinal (Abdomen): normal bowel sounds, soft, nontender, no hepatosplenomegaly Musculoskeletal: no cyanosis or clubbing, extremities motor strength 5/5 Mild right groin pain on leg rotation, internal/external Neurologic: moves all extremities and awake; not confused Motor/Sensory: + tremor (mild resting) Psychiatric: A+Ox3, euthymic affect Results & Data Results & Data ([facility]) Vital Signs (Past 12 Hours) Vital Signs Temp Pulse Resp BP BP Pulse Ox 01/10/21 15:11 36.9 C 87 16 98/68 L 91 01/10/21 12:16 84 94/59 L 94 01/10/21 07:58 86 18 94 01/10/21 07:08 37.0 C 83 16 94/56 L 93 PG Care Time/CCT Total # of Minutes Spent Total Time Spent with Patient: Total time spent is greater than 50% in coordination of care (as documented) at patient's floor/unit and/or counseling patient: Coding Level of Care Code 89195 Subseq Obs Care Lvl 2 Diagnoses SHYANN (acute kidney injury) N17.9 Pneumonitis J18.9 Otitis media H66.90 Left-sided chest wall pain R07.89 Interstitial lung disease J84.9 Diabetes E11.42; Z79.4 Diabetes mellitus complication detail: with polyneuropathy Diabetes mellitus complication status: with neurologic complications Diabetes mellitus superintendent terminal insulin use: with correction use Diabetes mellitus type: type 2 HLD (hyperlipidemia) E78.2 Hyperlipidemia type: mixed hyperlipidemia History of aortic valve replacement Z95.2 Subtherapeutic anticoagulation Z51.81; Z79.01 PAF (paroxysmal atrial fibrillation) I48.0 Shortness of breath R06.02 Lower back pain M54.5 Back pain laterality: midline Chronicity: acute Sciatica presence: without sciatica Parkinsonism G20 Parkinsonism type: unspecified Rheumatoid arthritis M06.9 (1) Lower back pain Back pain laterality: midline Chronicity: acute Sciatica presence: without sciatica Qualified Code(s): M54.5 - Low back pain (2) Diabetes Diabetes mellitus complication detail: with polyneuropathy Diabetes mellitus complication status: with neurologic complications Diabetes mellitus superintendent terminal insulin use: with superintendent terminal use Diabetes mellitus type: type 2 Qualified Code(s): E11.42 - Type 2 diabetes mellitus with diabetic polyneuropathy; Z79.4 - skilled nursing (current) use of insulin (3) HLD (hyperlipidemia) Hyperlipidemia type: mixed hyperlipidemia Qualified Code(s): E78.2 - Mixed hyperlipidemia (4) Parkinsonism Parkinsonism type: unspecified Qualified Code(s): G20 - Parkinson's disease
[2021-01-10] MEDS ORDERED: LACTATED RINGER'S 1,000 ML IV SCH (18:15)
[2021-01-10] MEDS: predniSONE 20 MG TAB PO SCH (19:55)
[2021-01-10] MEDS: ATORVASTATIN 40 MG TAB PO SCH (20:02)
[2021-01-10] MEDS ORDERED: INSULIN GLARGINE SOLOSTAR 100 UNITS/ML 3 ML PEN SQ SCH (21:00)
[2021-01-11 06:19] LABS: Hematocrit (blood only) 31.5 % (42-52); Hemoglobin 9.7 g/dL (14.0-18.0); Mean Corpuscular Hemoglobin 26.1 pg (25-34); Mean Corpuscular Hgb Conc 30.8 g/dL (32-36); Mean Corpuscular Volume 84.7 fL (80-100); Mean Platelet Volume 9.8 fL (7.4-10.4); Platelet Count 146 K/uL (130-400); RDW Coefficient of Variation 16.7 % (11.5-14.5); RDW Standard Deviation 51.9 fL (36.4-46.3); Red Blood Count 3.72 M/uL (4.7-6.1); White Blood Count 5.62 K/uL (4.8-10.8)
[2021-01-11 06:36] LABS: INR 1.8 (0.9-1.1); Prothrombin Time 17.2 Seconds (9.0-12.0)
[2021-01-11 06:56] LABS: BUN Creatinine Ratio 27.6 (10-20); Calcium 8.6 mg/dl (8.5-10.1); Creatinine Clr Calc Pharmacy 65.5 ml/min; Est GFR (African American) 66.1 ml/min; Est GFR (Non-African American) 57.1 ml/min; Magnesium 2.2 mg/dl (1.8-2.4); Potassium 4.3 mmol/L (3.5-5.1)
[2021-01-11 07:02] LABS: Basophils # (auto) 0.01 K/uL (0-0.2); Basophils % (auto) 0.2 %; Immature Granulocytes # (auto) 0.02 K/uL (0.00-0.02); Immature Granulocytes % (auto) 0.4 %; Lymphocytes % (auto) 7.1 %; Monocytes # (auto) 0.08 K/uL (0.11-0.59); Monocytes % (auto) 1.4 %; Neutrophils # (auto) 5.11 K/uL (1.4-6.5); Neutrophils % (auto) 90.9 %; RBC Morphology Unremarkable
[2021-01-11] MEDS ORDERED: INSULIN GLARGINE SOLOSTAR 100 UNITS/ML 3 ML PEN SC ONE (07:45)
[2021-01-11] MEDS: ACETAMINOPHEN 325 MG TAB PO PRN ×2 (07:56→17:02)
[2021-01-11 07:57] LABS: Estimated Average Glucose 197 mg/dl; Hemoglobin A1C 8.5 % (4.5-5.6)
[2021-01-11] MEDS ORDERED: FUROSEMIDE 20 MG TAB PO SCH (09:00)
[2021-01-11] MEDS ORDERED: TORSEMIDE 20 MG TAB PO SCH (09:00)
[2021-01-11] MEDS: LIDOCAINE 5% 1 PATCH TD SCH (09:01)
[2021-01-11] MEDS: ASPIRIN 81 MG ECTAB PO SCH (09:03)
[2021-01-11] MEDS: levETIRAcetam 500 MG TAB PO SCH ×2 (09:03→21:08)
[2021-01-11] MEDS: GABAPENTIN 300 MG CAP PO SCH ×2 (09:03→21:08)
[2021-01-11] MEDS: AZITHROMYCIN 250 MG TAB PO SCH (09:03)
[2021-01-11] MEDS: CARBIDOPA/LEVODOPA 25/100MG TAB PO SCH ×3 (09:03→21:07)
[2021-01-11] MEDS: TOPIRAMATE 100 MG TAB PO SCH ×2 (09:24→21:08)
[2021-01-11] MEDS: UMECLIDINIUM/VILANTEROL 62.5/25MCG 7 PUFFS/INHALER INH SCH (09:25)
[2021-01-11] MEDS: predniSONE 20 MG TAB PO SCH (09:25)
[2021-01-11] MEDS: CARBAMIDE PEROXIDE 6.5% 15 ML BTL OT SCH ×3 (09:25→21:08)
[2021-01-11] MEDS: INSULIN ASPART 100 UNITS/ML 3 ML PEN SC SCH ×4 (09:32→21:16)
--- NOTE | 2021-01-11 10:02 | Pharmacy Report ---
Pharmacy Glycemic Short Note 2 - Date of Service January 11, 2021 - Glycemic Short BSG Results (Last 24 hours): 01/10/21 01/10/21 01/10/21 12:28 17:20 17:21 Glucose POC Glucose 204 H 305 H* 293 H 01/10/21 01/11/21 01/11/21 20:43 05:52 08:25 Glucose 257 H POC Glucose 226 H 269 H OUTPATIENT ANTIDIABETIC REGIMEN: * Lantus 20 units SQ BID * Novolog up to 20 units ACHS * Trulicity 1.5 mg SQ weekly (last dose taken 01/08/21) ASSESSMENT: * 75 y/o M admitted for Pneumonitis/ Pneumonia with SHYANN. Patient with history of Type 2 diabetes managed at home basal and bolus insulin in addition to Trulicity SQ weekly. Since Trulicity is non-formulary in the hospital, we will hold this med, although pt's last dose on on 01/08 should be working for him for a week. * Lantus 18 units was given last night on admission based on wt and stress of 2. Novolog started based off same parameters. * Patient received Prednisone 40 mg last evening and ongoing daily. BSGs have been above 200 mg/dl since yesterday at lunch time. Most of the hyperglycemia in the evening and today is most likely due to steroid. * Lantus dose increased to 27 units this AM. Novolog parameters tightened. Additional Lantus ordered at HS based on a scale. * Pre-lunch BSG elevated up to 321 mg/dl. Spoke to CHANDLER Glover. Patient had a Boost supplement at 10:30 AM today between breakfast and lunch which was not covered and most likely contributed to the hyperglycemic event. PLAN FOR INPATIENT GLYCEMIC CONTROL: * Hold outpatient SQ Trulicity * Basal insulin * Lantus 27 units SQ today AM * Lantus 15-30 units scale based on BSG (see EMR for details) * Bolus insulin * NovoLog per scale ACHS or Q6hrs while NPO * Goal Range: Low 110 mg/dL - High 140 mg/dL * Correction Factor: 15 mg/dL/unit * Nutritional / Prandial insulin per carb ratio of 1 unit per 5 grams CHO consumed PLAN FOR DISCHARGE: * TBD
[2021-01-11] MEDS: POLYETHYLENE (MIRALAX) 17 GM PACK PO PRN ×2 (10:17→21:29)
[2021-01-11] MEDS: FLUTICASONE FUROATE 100MCG 14 PUFFS/INHALER INH SCH (13:39)
--- NOTE | 2021-01-11 13:57 | Pulmonology Progress Note ---
Date of Service January 11, 2021 Assessment & Plan (1) Pneumonitis: Plan: Attending: Impression: This is a 75-year-old male who has a history of polymyositis, rheumatoid arthritis, interstitial lung disease, chronic chest pain, chronic complaints of shortness of breath. Patient is on prednisone chronically at 5 mg p.o. daily. He is saturating well on room air. He follows in the pulmonary clinic with Dr. Ortega and Wiliam Ho PA-C. Most recent outpatient visit was 09/09/[address] Oretga. Anoro Ellipta was started at that time. Patient was previously on azithromycin 3 times a week for suppression while on chronic prednisone. This was discontinued when an oral Ellipta was started. Previous CTs demonstrates a 4 mm right upper lobe pulmonary nodule which has been stable. Pulmonary function testing completed 09/09/2020 s hows nonspecific spirometry. There is significant postbronchodilator response. Lung volumes suggest mild air trapping. DLCOunc is moderately reduced at 64%. Recommendations: 1. Pneumonitis: * Increase prednisone dose from 5 mg daily to 40 mg daily x5 days then taper 10 mg every other day until back to base dose of 5 mg daily * Will start the patient on Brio Ellipta in addition to his Anoro Ellipta * Will start Bactrim DS Sunday and Sunday for suppression for 30 days * Outpatient follow-up about 3 weeks after discharge 2. Interstitial lung disease: * Etiology of ILD is unclear. Patient does have underlying rheumatoid arthritis and polymyositis. * CT scans of the chest have remained stable. * Patient is on prednisone 5 mg and follows with rheumatology. * Previous rituximab therapy has been stopped * Continue outpatient management 3. Nocturnal hypoxia: * Continue supplemental oxygen at night with sleep via nasal cannula 4. Shortness of breath: * Patient with no demonstrable hypoxia * Continue treatment for nocturnal hypoxia * Pulmonary function testing as above * Continue furosemide 5. Pulmonary nodule: * Stable 4 mm right upper lobe nodule * Continue to follow outpatient (2) Polymyositis: (3) Shortness of breath: (4) Interstitial lung disease: (5) DVT prophylaxis: Admission and Anticipated Discharge Date Admission Date: January 09, 2021 Subjective Attending: Dr. Ortega Patient seen and examined. Patient continues to complain about left-sided pain from his shoulder down to his hip. This is somewhat relieved with lidocaine patch. This is similar to previous episodes of pain. He does report that sometimes the pain is limited to his chest but now is extended further across his abdomen to his hip. He denies any fever, chills, sweats, rigors. No nausea or vomiting. No diarrhea. He denies any skin rash. No urticaria. No history of zoster. He states his breathing is much improved. He has no specific chest pain other than on the left side. No awareness of tachyarrhythmias. He has no other acute complaints. Review of Systems Review of Systems: All systems reviewed & are unremarkable except as noted in Subjective Physical Exam Physical Exam: GENERAL : No acute distress EYES: No icterus, gaze conjugate NOSE: No evidence of epistaxis MOUTH: No lesions or candidiasis NECK: Supple CHEST: Lidocaine patch on left side of upper chest from intercostal spaces 2 through 5. Reproducible pain with palpation along the mid axillary line of the chest down to the abdomen. No rebound tenderness of abdomen. No guarding of abdomen. LUNGS: CTA B/L, no wheezes, rales or rhonchi. No evidence of paradoxical chest wall movement. No use of accessory muscles. HEART: Regular, rate controlled. No appreciation of murmurs, gallops, rubs ABDOMEN: Soft, NT, ND, BS Present. Pain to palpation along the left this seems to be isolated to the skin. No deep pain with palpation. No rash or lesions. EXTREMITIES: No LE edema, pedal pulses intact NEURO: A&OX3 Results & Data Results & Data ([facility]) Vital Signs (Past 12 Hours) Vital Signs Temp Pulse Resp BP Pulse Ox 01/11/21 07:28 36.4 C L 58 L 18 102/66 95 Diagnostic Findings No further diagnostic findings Pulmonary function testing 09/09/2020: FVC 3.52, 79% of predicted, PB +12% FEV1 2.63, 78% of predicted, PB +17% FEV1/FVC 75, 98% of predicted, PB +4% TLC 6.38, 90% of predicted RV/TLC 47, 126% of predicted DLCOunc 64% of predicted DL/VA 3.60 81% of predicted PG Care Time/CCT Total # of Minutes Spent Total Time Spent with Patient: Total time spent is greater than 50% in coordination of care (as documented) at patient's floor/unit and/or counseling patient: Coding Level of Care Code 53522 Subseq Hosp Care Lvl 2 Diagnoses Pneumonitis J18.9 Polymyositis M33.20 Shortness of breath R06.02 Interstitial lung disease J84.9 DVT prophylaxis Z29.9 Time Spent (min) 25
[2021-01-11] MEDS: WARFARIN SOD 10 MG TAB PO SCH (17:02)
[2021-01-11] MEDS ORDERED: INSULIN GLARGINE SOLOSTAR 100 UNITS/ML 3 ML PEN SC SCH (21:00)
[2021-01-11] MEDS: ATORVASTATIN 40 MG TAB PO SCH (21:08)
[2021-01-12] MEDS: ALBUTEROL HFA 8 GM INHALER INH PRN ×2 (00:46→13:27)
[2021-01-12 07:15] LABS: Basophils # (auto) 0.01 K/uL (0-0.2); Basophils % (auto) 0.2 %; Eosinophils # (auto) 0.07 K/uL (0-0.5); Eosinophils % (auto) 1.2 %; Hematocrit (blood only) 29.5 % (42-52); Hemoglobin 9.2 g/dL (14.0-18.0); Immature Granulocytes # (auto) 0.03 K/uL (0.00-0.02); Immature Granulocytes % (auto) 0.5 %; Lymphocytes # (auto) 0.69 K/uL (1.2-3.4); Lymphocytes % (auto) 12.2 %; Mean Corpuscular Hemoglobin 25.8 pg (25-34); Mean Corpuscular Hgb Conc 31.2 g/dL (32-36); Mean Corpuscular Volume 82.6 fL (80-100); Mean Platelet Volume 9.7 fL (7.4-10.4); Monocytes # (auto) 0.23 K/uL (0.11-0.59); Monocytes % (auto) 4.1 %; Neutrophils # (auto) 4.62 K/uL (1.4-6.5); Neutrophils % (auto) 81.8 %; Platelet Count 161 K/uL (130-400); RDW Coefficient of Variation 16.6 % (11.5-14.5); RDW Standard Deviation 50.5 fL (36.4-46.3); Red Blood Count 3.57 M/uL (4.7-6.1); White Blood Count 5.65 K/uL (4.8-10.8)
[2021-01-12 07:25] LABS: INR 1.9 (0.9-1.1); Prothrombin Time 18.4 Seconds (9.0-12.0)
[2021-01-12 07:40] LABS: BUN Creatinine Ratio 30.2 (10-20); Calcium 8.5 mg/dl (8.5-10.1); Est GFR (African American) 61.9 ml/min; Est GFR (Non-African American) 53.4 ml/min; Magnesium 2.5 mg/dl (1.8-2.4); Potassium 3.8 mmol/L (3.5-5.1)
--- NOTE | 2021-01-12 08:34 | Hospitalist Progress Note ---
Date of Service January 11, 2021 Assessment & Plan (1) SHYANN (acute kidney injury): Plan: Resolved. 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 No clear indication for these and suspect taking for venous insufficiency. No ascites on CT. (2) Chest pain: Plan: This is his main ongoing complaint. Continue lidocaine patch. Total CK with AM labs. Already on prednisone for possible pleuritis. Very low likelihood of pericarditis as not positional in nature (3) Pneumonitis: Plan: Chronic with aspiration - no acute changes on CXR and CT scan - Flutter valve and cough assist - Continue albuterol - schedule nebs for 24 hours - defer continuation to rounding team - Aspiration precautions - Azithromycin - Appreciate pulmonology consult - increased prednisone to 40mg PO daily (4) Polymyositis: Plan: CK with AM labs (5) Shortness of breath: Plan: chronic with his history of ILD/COPD - As above At baseline per PT [place] (6) Interstitial lung disease: Plan: Continue with home inhalers - Not sure of recent PFTs previously trialed on Rituxan - Completed steroid course and Augmentin in September - Continue Anoro/equivalent, albuterol, - Used to get his care in [place] - Voiced some difficulty with his home oxygen unit in regards to supplies and service - case management consult placed - consult pulmonology (7) Diabetes: Plan: On insulin at home - Continue with basal bolus dosing Consult pharmacy for glycemic control in setting of increasing steroid use (8) HLD (hyperlipidemia): Plan: Continue statin (9) History of aortic valve replacement: Plan: Subtherapeutic on INR today - Patient reports that he checks his INR at home and sends his results to PCP - he reports 3.5 on Sunday- dose held Continue 10mg warfarin daily - Continue BP control and diuretics (10) Subtherapeutic international normalized ratio (INR): Plan: As above- patient endorses he has been "all over the place for the past 2 months" - endorses weight loss since he has gone to rehab in the spring and tries protein shake supplementations - likely has some vitamin K in it- nutrition consult placed for education and supplementation evaluation. (11) PAF (paroxysmal atrial fibrillation): Plan: Rate controlled and NSR (12) Lower back pain: Plan: Chronic currently pain controlled - continue pred and Tylenol and Neurontin (13) Parkinsonism: Plan: Continue Carbidopa/levodopa (14) Rheumatoid arthritis: Plan: Continue prednisone 10mg daily chronically (currently on 40mg for ILD) Admission and Anticipated Discharge Date Admission Date: January 11, 2021 Subjective Main ongoing complaints is reproducible left sided chest pain which was the main reason he came to the ER. Feels this is somewhat better with lidocaine patch from admission. Sharp, worse on inspiration. He also notes he sleeps on this side. Reports this has been worked up many times before for cardiac issues and always negative. Feels that no-one is listening to him although cannot articulate what he feel the problem is. We discussed pleuritis from his rheumatic lung disease but he is not open to this concept or musculoskeletal pain since it is reproducible on exam but he is also not open to this diagnosis. Review of Systems Review of Systems: All systems reviewed & are unremarkable except as noted in HPI & below Physical Exam Constitutional: WD/WN, vitals as above Respiratory: normal respiratory effort Auscultation: + crackles (fine throughout) Cardiovascular: RRR, no murmur, no edema Chest (Breasts): Additional Comments: Left sided chest pain reproducible on exam Gastrointestinal (Abdomen): normal bowel sounds, soft, nontender, no hepatosplenomegaly Musculoskeletal: no cyanosis or clubbing, extremities motor strength 5/5 Neurologic: moves all extremities and awake; not confused Motor/Sensory: + tremor (mild resting) Psychiatric: A+Ox3, euthymic affect PG Care Time/CCT Total # of Minutes Spent Total Time Spent with Patient: Total time spent is greater than 50% in coordination of care (as documented) at patient's floor/unit and/or counseling patient: Coding Level of Care Code 75254 Subseq Hosp Care Lvl 2 Diagnoses Pneumonitis J18.9 Polymyositis M33.20 Shortness of breath R06.02 Interstitial lung disease J84.9 Chest pain R07.2 Chest pain type: precordial pain SHYANN (acute kidney injury) N17.9 Diabetes E11.42; Z79.4 Diabetes mellitus type: type 2 Diabetes mellitus financial advocate insulin use: with prison use Diabetes mellitus complication status: with neurologic complications Diabetes mellitus complication detail: with polyneuropathy HLD (hyperlipidemia) E78.2 Hyperlipidemia type: mixed hyperlipidemia History of aortic valve replacement Z95.2 Subtherapeutic international normalized ratio (INR) R79.1 PAF (paroxysmal atrial fibrillation) I48.0 Lower back pain M54.5 Back pain laterality: midline Chronicity: acute Sciatica presence: without sciatica Parkinsonism G20 Parkinsonism type: unspecified Rheumatoid arthritis M06.9 Rheumatoid arthritis location: unspecified site Rheumatoid factor presence: unspecified presence (1) Chest pain Chest pain type: precordial pain Qualified Code(s): R07.2 - Precordial pain (2) Diabetes Diabetes mellitus type: type 2 Diabetes mellitus prison insulin use: with prison use Diabetes mellitus complication status: with neurologic complications Diabetes mellitus complication detail: with polyneuropathy Qualified Code(s): E11.42 - Type 2 diabetes mellitus with diabetic polyneuropathy; Z79.4 - correction (current) use of insulin (3) HLD (hyperlipidemia) Hyperlipidemia type: mixed hyperlipidemia Qualified Code(s): E78.2 - Mixed hyperlipidemia (4) Lower back pain Back pain laterality: midline Chronicity: acute Sciatica presence: without sciatica Qualified Code(s): M54.5 - Low back pain (5) Parkinsonism Parkinsonism type: unspecified Qualified Code(s): G20 - Parkinson's disease (6) Rheumatoid arthritis Rheumatoid arthritis location: unspecified site Rheumatoid factor presence: unspecified presence Qualified Code(s): M06.9 - Rheumatoid arthritis, unspecified
[2021-01-12] MEDS: GABAPENTIN 300 MG CAP PO SCH (08:57)
[2021-01-12] MEDS: CARBIDOPA/LEVODOPA 25/100MG TAB PO SCH ×2 (08:57→13:30)
[2021-01-12] MEDS: TOPIRAMATE 100 MG TAB PO SCH (08:57)
[2021-01-12] MEDS: ASPIRIN 81 MG ECTAB PO SCH (08:58)
[2021-01-12] MEDS: AZITHROMYCIN 250 MG TAB PO SCH (08:58)
[2021-01-12] MEDS: predniSONE 20 MG TAB PO SCH (08:58)
[2021-01-12] MEDS: UMECLIDINIUM/VILANTEROL 62.5/25MCG 7 PUFFS/INHALER INH SCH (08:58)
[2021-01-12] MEDS: levETIRAcetam 500 MG TAB PO SCH (08:58)
[2021-01-12] MEDS ORDERED: SULFAMETHOXAZOLE/TRIMETHOPRIM DS 800/160MG TAB PO SCH (09:00)
[2021-01-12] MEDS ORDERED: INSULIN GLARGINE SOLOSTAR 100 UNITS/ML 3 ML PEN SC SCH (09:00)
[2021-01-12] MEDS ORDERED: INSULIN HUMAN NPH SC SCH (09:00)
[2021-01-12] MEDS: INSULIN ASPART 100 UNITS/ML 3 ML PEN SC SCH ×2 (09:00→13:31)
[2021-01-12] MEDS: CARBAMIDE PEROXIDE 6.5% 15 ML BTL OT SCH ×2 (09:01→13:31)
[2021-01-12] MEDS: FLUTICASONE FUROATE 100MCG 14 PUFFS/INHALER INH SCH (09:01)
[2021-01-12] MEDS: LIDOCAINE 5% 1 PATCH TD SCH (09:01)
[2021-01-12] MEDS: POLYETHYLENE (MIRALAX) 17 GM PACK PO PRN (09:15)
--- NOTE | 2021-01-12 10:45 | Pharmacy Report ---
Pharmacy Glycemic Short Note 2 - Date of Service January 12, 2021 - Glycemic Short BSG Results (Last 24 hours): 01/11/21 01/11/21 01/11/21 12:05 12:06 17:17 Glucose POC Glucose 301 H* 321 H* 251 H 01/11/21 01/11/21 01/12/21 20:13 20:14 06:46 Glucose 286 H POC Glucose 305 H* 302 H* 01/12/21 08:22 Glucose POC Glucose 252 H OUTPATIENT ANTIDIABETIC REGIMEN: * Lantus 20 units SQ BID * Novolog up to 20 units ACHS * Trulicity 1.5 mg SQ weekly (last dose taken 01/08/21) ASSESSMENT: 01/12/21 * Patient's BSGs yesterday were 269-321 (uncovered boost prior to this)- 251- 305 fasting today is 252 mg/dL. * Patient received 124 units of insulin yesterday with 57 units of basal and 67 units of bolus. * Will start Lantus 30 units BID as this includes home dose plus slightly more for steroid hyperglycemia. This correlates to weight-based stress of 3. * Tighten Novolog. * Start NPH 40 units daily for steroid hyperglycemia. Background * 75 y/o M admitted for Pneumonitis/ Pneumonia with SHYANN. Patient with history of Type 2 diabetes managed at home basal and bolus insulin in addition to Trulicity SQ weekly. Since Trulicity is non-formulary in the hospital, we will hold this med, although pt's last dose on on 01/08 should be working for him for a week. * Lantus 18 units was given last night on admission based on wt and stress of 2. Novolog started based off same parameters. * Patient received Prednisone 40 mg last evening and ongoing daily. BSGs have been above 200 mg/dl since yesterday at lunch time. Most of the hyperglycemia in the evening and today is most likely due to steroid. * Lantus dose increased to 27 units this AM. Novolog parameters tightened. Additional Lantus ordered at HS based on a scale. * Pre-lunch BSG elevated up to 321 mg/dl. Spoke to CHANDLER Glover. Patient had a Boost supplement at 10:30 AM today between breakfast and lunch which was not covered and most likely contributed to the hyperglycemic event. PLAN FOR INPATIENT GLYCEMIC CONTROL: * Hold outpatient SQ Trulicity * Basal insulin * Lantus 30 units SQ BID * NPH 40 units SQ daily * Bolus insulin * NovoLog per scale ACHS or Q6hrs while NPO * Goal Range: Low 110 mg/dL - High 140 mg/dL * Correction Factor: 12 mg/dL/unit * Nutritional / Prandial insulin per carb ratio of 1 unit per 4 grams CHO consumed PLAN FOR DISCHARGE: * TBD
--- NOTE | 2021-01-12 13:55 | Discharge Summary ---
Date of Service January 12, 2021 Admission HPI Per Admitting Provider 75 YOM with complicated medical history to include Aortic root graft, Mechanical AVR in 2003 (Coumadin), Migraines, seizure history, neuropathy, ILD (on prednisone and Rituxan), HLD, DMII on insulin, Parkinson disease, lumbar fusion, and BPH. Patient was in house for 3 weeks following his L3-S1, and fusion in June for lumbar spinal stenosis with neurogenic claudication. Patient comes into the EMD today for complaints of left sided pain and dyspnea. "Hurts when I take a deep breath". The patient experienced another fall last week which he reports he got his feet tangled in his walker and fell on his left side of his chest and his couch. In the EMD the patient had complete CT scan of head, chest, abdomen and pelvis and cervical spine performed. He was also noted to have a mild SHYANN on his labs. He has been using his albuterol inhaler more frequently over the past 2 days because of his feeling of not being able to take a deep breath, this may explain his mild lactate of 2.2. The patient has endo rsed mild headache and fullness in his left ear with some sinus congestion over the past week. The patient has chronic aspirtion and continues to have pneumonitis inflammation in the bases bilaterally. The patient will be admitted for observation overnight, will be placed on Azithromycin for his Left ear infection and pulmonary inflammation, will get pain control and pulmonary toileting with flutter valve for his left rib pain, will place on IVF for his SHYANN. PT/OT consult. Patient has had his COVID vaccine and his COVID test on admission is NEGATIVE. Discharge Data Allergies Allergy/AdvReac Type Severity Reaction Status Date / Time Iodinated Contrast Media Allergy Severe Anaphylaxis Verified 01/09/21 08:41 shellfish derived Allergy Severe Anaphylaxis Verified 01/09/21 08:41 tamsulosin [From Flomax] Allergy Intermediate Itching Unverified 01/09/21 08:41 Tetanus Vaccines and Toxoid Allergy Unknown Unknown Verified 01/09/21 08:41 Consultations 01/09/21 09:45 ED Decision to Admit Stat 01/09/21 10:05 ED Decision to Admit Stat 01/10/21 15:29 Consult Pulmonology Routine Ordered Studies 01/09/21 08:08 CT abd pelvis wo con Stat CT cervical spine wo con Stat CT chest diagnostic wo con Stat CT head/brain wo con Stat Hospital Course (1) SHYANN (acute kidney injury): Resolved. 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 No clear indication for these and suspect taking for venous insufficiency. No ascites on CT. (2) Chest pain: This is his main ongoing complaint. Continue lidocaine patch. Total CK with AM labs. Already on prednisone for possible pleuritis. Very low likelihood of pericarditis as not positional in nature (3) Pneumonitis: Chronic with aspiration - no acute changes on CXR and CT scan - Flutter valve and cough assist - Continue albuterol - schedule nebs for 24 hours - defer continuation to rounding team - Aspiration precautions - Azithromycin - Appreciate pulmonology consult - increased prednisone to 40mg PO daily (4) Polymyositis: CK with AM labs (5) Shortness of breath: chronic with his history of ILD/COPD - As above At baseline per PT eval (6) Interstitial lung disease: Continue with home inhalers - Not sure of recent PFTs previously trialed on Rituxan - Completed steroid course and Augmentin in September - Continue Anoro/equivalent, albuterol, - Used to get his care in [place] - Voiced some difficulty with his home oxygen unit in regards to supplies and service - case management consult placed - consult pulmonology (7) Diabetes: On insulin at home - Continue with basal bolus dosing Consult pharmacy for glycemic control in setting of increasing steroid use (8) HLD (hyperlipidemia): Continue statin (9) History of aortic valve replacement: Subtherapeutic on INR today - Patient reports that he checks his INR at home and sends his results to PCP - he reports 3.5 on Sunday- dose held Continue 10mg warfarin daily - Continue BP control and diuretics (10) Subtherapeutic international normalized ratio (INR): As above- patient endorses he has been "all over the place for the past 2 months" - endorses weight loss since he has gone to rehab in the spring and tries protein shake supplementations - likely has some vitamin K in it- nutrition consult placed for education and supplementation evaluation. (11) PAF (paroxysmal atrial fibrillation): Rate controlled and NSR (12) Lower back pain: Chronic currently pain controlled - continue pred and Tylenol and Neurontin (13) Parkinsonism: Continue Carbidopa/levodopa (14) Rheumatoid arthritis: Continue prednisone 10mg daily chronically (currently on 40mg for ILD) Discharge Plan Discharge Items Patient Disposition: Home - Home Health Services Reason For Visit: SOB, L RIB PAIN Discharge Diagnosis: Pneumonitis Activity: Resume your previous activity Non-emergency contact: Insulation Worker Call non-emergency contact if: you have any medication questions and your symptoms worsen Follow-up/Referrals: Josh Gaspar MD [Primary Care Provider] - 01/18/21 8:30 am Diet: Carb Consistent or DM2 Diet Texture: Mechanical soft (ground) Addtl Attending Provider Instructions: You were admitted to [facility] from January 09 - 2020 due to recurrent falls, shortness of breath and left sided chest pain. For the recurrent falls and dizziness recommend discontinuing your diuretics and using compression stocking for edema in your leg as your blood pressure if lowered by these medications. For your shortness of breath suspect this is related to pneumonitis from you interstitial lung disease. You were reviewed by your rice farmer and recommended a steroid taper at this time. Please take 40mg daily for 3 more days, then 30mg daily for 2 days, then 20mg daily for 2 days, then 10mg daily for 2 days, then back to chronic 5mg daily. Use insulin NPH to cover for prednisone induced high glucose as prescribed below. Bactrim (antibiotic) has been prescribed for prophylaxis for infection while on steroid taper and is to continue for 4 weeks. In addition your rice farmer recommended using a steroid inhaler called Neil Bradley, please wash out your mouth after using this medication to prevent thrush. Your left sided chest pain is more difficult to diagnosis. Do not suspect pericarditis as not positional in nature. Possible pleuritis related to your interstitial lung disease which should improve with steroids. However reprodu cible element suggests this is more musculoskeletal. Creatine kinase levels were normal therefore this is not your polymyositis. Please continue with over the counter lidocaine patch to help with this. INR 1.9 on discharge. Please continue with your outpatient physician for continued management of this. Pending Studies at Discharge: No Stand-Alone Forms: My [facility], Smoking Cessation Medications and DC Order Prescriptions: New sulfamethoxazole-trimethoprim [Bactrim DS] 800-160 mg Tablet 1 tab PO MoWeFr Qty: 12 RF: 0 Novolin N NPH U-100 Insulin 100 unit/mL Suspension See Rx Instructions .ROUTE .COMPLEX Qty: 10 RF: 0 prednisone 10 mg tablet See Rx Instructions .ROUTE .COMPLEX Qty: 24 RF: 0 Arnuity Ellipta 100 mcg/actuation Blister With Device 1 inh inhalation QAM Qty: 30 RF: 0 Continued topiramate 100 mg tablet 100 mg PO BID 30 Days Qty: 60 RF: 5 levetiracetam 1,000 mg tablet 1,000 mg PO BID 90 Days Qty: 180 RF: 1 carbidopa-levodopa 25-100 mg tablet 0.5 tab PO TID Qty: 90 RF: 2 gabapentin 300 mg capsule 300 mg PO BID Qty: 180 RF: 1 allopurinol 100 mg Tablet 100 mg PO HS RF: 0 nitroglycerin 0.4 mg Tablet, Sublingual 0.4 mg sublingual DIRECTED PRN (Reason: Chest Pain) RF: 0 albuterol sulfate [Ventolin HFA] 90 mcg/actuation Hfa Aerosol Inhaler 2 puff INHALATION Q4H PRN (Reason: Wheezing) RF: 0 Trulicity 1.5 mg/0.5 mL Pen Injector 1.5 mg SUBCUT WK RF: 0 cholecalciferol (vitamin D3) [Vitamin D3] 50 mcg (2,000 unit) Capsule 2,000 unit PO HS RF: 0 [id number] 333-133-5 mg Tablet 1 tab PO HS RF: 0 atorvastatin 40 mg tablet 40 mg PO HS RF: 0 sennosides [Senokot] 8.6 mg tablet 8.6 mg PO QAM RF: 0 warfarin 7.5 mg tablet 10 mg PO DAILY Qty: 0 RF: 0 insulin aspart U-100 [Novolog Flexpen U-100 Insulin] 100 unit/mL (3 mL) insulin pen 0 unit SUBCUT ACHS RF: 0 aspirin [Adult Low Dose Aspirin] 81 mg tablet,delayed release (DR/EC) 81 mg PO QAM RF: 0 Anoro Ellipta 62.5-25 mcg/actuation blister with device 1 inh inhalation QAM RF: 0 ondansetron 4 mg tablet,disintegrating 4 mg PO Q6H PRN (Reason: nausea and vomiting) Qty: 14 RF: 0 Lantus Solostar U-100 Insulin 100 unit/mL (3 mL) insulin pen 20 unit SUBCUT BID Qty: 0 RF: 0 Discontinued torsemide 20 mg tablet 20 mg PO .COMPLEX RF: 0 spironolactone 25 mg tablet 25 mg PO DAILY RF: 0 furosemide 20 mg tablet 20 mg PO Q OTHER DAY RF: 0 prednisone 5 mg tablet 10 mg PO DAILY RF: 0 Discharge Orders: Discharge Order (Routine); Ordered 01/12/21 Ordered By: Toni Goldsmith Admission Data Admit Date/Time: 01/11/21 19:02 Attending Provider: Toni Goldsmith Admit Provider: Shayan Mims Primary Care Provider: Josh Gaspar Other Providers: Toni Kelly ; Shayan Mims ; [facility] ; Ankit Ortega Other Interventions: Discharge Summary Assessment (RN) Last Done: 01/12/21 13:39 Coding Diagnoses SHYANN (acute kidney injury) N17.9 Chest pain R07.2 Chest pain type: precordial pain Pneumonitis J18.9 Polymyositis M33.20 Shortness of breath R06.02 Interstitial lung disease J84.9 Diabetes E11.42; Z79.4 Diabetes mellitus type: type 2 Diabetes mellitus long term care pharmacist insulin use: with long term care pharmacist use Diabetes mellitus complication status: with neurologic complications Diabetes mellitus complication detail: with polyneuropathy HLD (hyperlipidemia) E78.2 Hyperlipidemia type: mixed hyperlipidemia History of aortic valve replacement Z95.2 Subtherapeutic international normalized ratio (INR) R79.1 PAF (paroxysmal atrial fibrillation) I48.0 Lower back pain M54.5 Back pain laterality: midline Chronicity: acute Sciatica presence: without sciatica Parkinsonism G20 Parkinsonism type: unspecified Rheumatoid arthritis M06.9 Rheumatoid arthritis location: unspecified site Rheumatoid factor presence: unspecified presence
== END 2021-01-12 14:47 | disposition home health service (06) | DRG 178 ==
LOC: ED 07:30 → 3N 07:30 → SUATTDRO 10:35 → 3N 11:44

== ENCOUNTER 2021-02-11 07:38 | Observation (INO) ==
[2021-02-11 08:35] LABS: Basophils # (auto) 0.01 K/uL (0-0.2); Basophils % (auto) 0.2 %; Eosinophils # (auto) 0.19 K/uL (0-0.5); Eosinophils % (auto) 4.2 %; Hematocrit (blood only) 33.2 % (42-52); Hemoglobin 10.3 g/dL (14.0-18.0); Immature Granulocytes # (auto) 0.03 K/uL (0.00-0.02); Immature Granulocytes % (auto) 0.7 %; Lymphocytes # (auto) 0.84 K/uL (1.2-3.4); Lymphocytes % (auto) 18.5 %; Mean Corpuscular Hemoglobin 26.1 pg (25-34); Mean Corpuscular Volume 84.1 fL (80-100); Mean Platelet Volume 9.9 fL (7.4-10.4); Monocytes # (auto) 0.28 K/uL (0.11-0.59); Monocytes % (auto) 6.2 %; Neutrophils # (auto) 3.18 K/uL (1.4-6.5); Neutrophils % (auto) 70.2 %; Platelet Count 166 K/uL (130-400); RDW Coefficient of Variation 17.1 % (11.5-14.5); RDW Standard Deviation 52.4 fL (36.4-46.3); Red Blood Count 3.95 M/uL (4.7-6.1); White Blood Count 4.53 K/uL (4.8-10.8)
[2021-02-11] MEDS ORDERED: FAMOTIDINE 20MG IV PUSH 20 MG/5 ML SYR IV STA (08:41)
[2021-02-11] MEDS ORDERED: diphenhydrAMINE 50 MG/ML VIAL IV STA (08:41)
[2021-02-11] MEDS ORDERED: methylPREDNISolone 125 MG/2 ML VIAL IV STA (08:41)
--- NOTE | 2021-02-11 08:47 | Emergency Department Note ---
Impression & Plan Acute right-sided muscle weakness, SHYANN (acute kidney injury), Metabolic acidosis ED Provider Note NAME: OSBALDO AGUILAR AGE: 75 SEX: M : 1945 ARRIVES VIA: Walk-In INFORMANT: Patient, ED PROVIDER(S): Josh De La Rosa DO CHIEF COMPLAINT: Weakness HPI: The patient is a 75-year-old male who presented to the emergency department for strokelike symptoms. The patient states he went to bed at his normal time last night and felt that he was at his baseline. He did awake at one-point 3 in the morning to go to the bathroom and felt that he was stumbling. He states that he felt he was weak on his right side. When he awoke this morning symptoms continued. The patient presented to the emergency department for further evaluation. The patient states he does have a history of stroke and TIA in the past. He states that normally he can ambulate with a walker but does not have significant unilateral weakness. The patient denies having any recent falls. He states that he did notice it overnight he was having some low oxygen saturations. He does wear oxygen at night. He denies having any cough or chest pain. He denies having any lower extremity swelling. The patient did not see his family doctor prior to coming to the emergency department. He recently was off of his Coumadin for a dental procedure. He recently restarted this medication. He did take a dose of Coumadin last night. Otherwise the patient states he has been compliant with his usual outpatient medications. ROS: See above HPI for pertinent positives & negatives. A total of 10 systems reviewed and were otherwise negative. PAST MEDICAL HISTORY: See Below PAST SURGICAL HISTORY: See Below FAMILY HISTORY: See Below SOCIAL HISTORY: See Below HOME MEDICATIONS: See Below ALLERGIES: See Below VITALS: See Below PHYSICAL EXAMINATION: GENERAL: The patient is awake and alert. He is resting comfortably. EYES: The conjunctivae are clear. The pupils are round and reactive. EARS, NOSE, MOUTH AND THROAT: The nose is without any evidence of any deformity. NECK: The neck is nontender and supple. RESPIRATORY: Normal respiratory effort is noted there is no evidence of wheezing rhonchi or rales CARDIOVASCULAR: Regular rate and rhythm noted there no murmurs rubs or gallops normal S1 normal S2. GASTROINTESTINAL: The abdomen is soft. Abdomen is nontender. MUSCULOSKELETAL/EXTREMITIES: There is no evidence of gross deformity full range of motion is noted in the hips and shoulders. SKIN: There is no obvious evidence of any rash. There are no petechiae, pallor or cyanosis noted. NEUROLOGIC: Patient is awake alert and oriented x3. 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 There is no facial droop. Speech was pressured but clear. The patient has the ability to hold the right leg off the bed but dropped to the bed with any force. The patient is able to hold the left leg off the bed and the strength appears diminished in the right leg compared to the left. MEDICAL DECISION MAKING: The patient is a 75-year-old male who presented to the emergency department for an evaluation of weakness. The patient did have weakness on physical exam on t he right side. According to previous charts this would be a new neurologic finding. I was concerned this could represent an acute stroke. It was somewhat confusing as the patient's blood pressure was low and even normal at times. I discussed the patient's laboratory and radiographic studies with him. CT of the brain with angiography of the head and neck did not reveal any acute abnormality. He was found to have signs of metabolic acidosis. The patient was further worked up with a VBG as well as blood cultures. He was given a fluid bolus. The patient was reevaluated multiple times. [facility] will [facility] the patient for further managem ent and disposition. Triage Nursing notes reviewed. Prior medical records reviewed Vital Signs: reviewed and remarkable for no significant abnormalities Differential diagnosis: Infection, dehydration, metabolic abnormality, hypo/hyperglycemia, electrolyte disturbance, anemia, hypoxia, cardiac sources, intracerebral event, toxicologic, neurologic, as well as other pathologies. ER treatment provided: See below Diagnostics interpreted by me: ECG: EKG was obtained in the emergency department. My interpretation is sinus rhythm at 80 bpm. PACs were noted. Nonspecific lateral ST abnormalities were noted. This was compared to a tracing from January 092020. No significa nt changes were noted. Cardiac Monitoring: An order was placed for continuous cardiac monitoring. The monitor shows a rate of 66 bpm with sinus rhythm. Laboratory studies: As stated above and show below. Imaging studies: See below Consultation(s): I discussed this case with Dr. Goldsmith who [facility] They will evaluate the patient in the emergency department for further management and disposition. Past Med/Surg History Medical History Abnormal CT scan, chest Abnormal CT scan, chest Acute hyperglycemia Acute left-sided muscle weakness CAD (coronary artery disease) Chest pain Chronic pulmonary aspiration Dehydration Diabetes Fall HLD (hyperlipidemia) Hypoxia Interstitial lung disease Interstitial lung disease Interstitial lung disease due to connective tissue disease Lung nodule Neurogenic claudication Nocturnal hypoxia Palliative care encounter Polymyositis Polymyositis Polymyositis Prostate cancer s/p XRT Rheumatoid arthritis Rheumatoid arthritis Seizure-like activity Shortness of breath Stroke-like symptom 12/2019, w/ blurry vision and dysarthria. mild R sided wkness. attending outpatient physical therapy w/ good improvement in strength (5+/5 strength of all 4 extremities as of 05/28/20) Supratherapeutic INR Thoracic ascending aortic aneurysm s/p repair Weakness Surgical History H/O hernia repair History of aortic valve replacement mechanical History of cholecystectomy History of fusion of cervical spine History of gastric bypass lap band History of heart artery stent History of lung biopsy 2019 History of partial nephrectomy Family History Mother , age 87 of pulmonary issues Rheumatoid arthritis Father , in his mid 80s of a stroke Stroke Other Coronary heart disease Social History Smoking Status: Never smoker Second Hand Exposure: No; Hx Alcohol Use: No Hx Substance Use: No Preferred Language: Japanese Communication Ability: Effective Hearing Ability: Hard of Hearing Director Of Solutions Architecture Required: No Beliefs That Will Affect Care: None marital status: / Current Living Situation: Alone Current Living Situation Comment: spends nights with son, has [employer] week from 12-29 current occupational status: retired 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 Feels Safe at Home: Yes Assistive Devices: Walker Allergies Allergies Allergy/AdvReac Type Severity Reaction Status Date / Time Iodinated Contrast Media Allergy Severe Anaphylaxis Verified 02/11/21 09:47 shellfish derived Allergy Severe Anaphylaxis Verified 02/11/21 09:47 tamsulosin [From Flomax] Allergy Intermediate Itching Unverified 02/11/21 09:47 Tetanus Vaccines and Toxoid Allergy Unknown Unknown Verified 02/11/21 09:47 Home Meds Home Medications Medication Instructions Recorded Confirmed albuterol sulfate 90 mcg/actuation 2 puff INHALATION Q4H PRN 01/20/20 02/11/21 aerosol inhaler (Ventolin HFA) cholecalciferol (vitamin D3) 50 2,000 unit PO HS 01/20/20 02/11/21 mcg (2,000 unit) capsule (Vitamin D3) nitroglycerin 0.4 mg sublingual 0.4 mg SUBLINGUAL DIRECTED PRN 01/20/20 02/11/21 tablet atorvastatin 40 mg tablet 40 mg PO HS 05/28/20 02/11/21 insulin aspart U-100 100 unit/mL 0 unit SUBCUT ACHS 09/04/20 02/11/21 (3 mL) subcutaneous pen (Novolog Flexpen U-100 Insulin aspart) aspirin 81 mg tablet,delayed 81 mg PO QAM 10/09/20 02/11/21 release (Adult Low Dose Aspirin) sennosides 8.6 mg tablet (Senokot) 17.2 mg PO QAM 10/19/20 02/11/21 calcium carbonate 600 mg calcium 600 mg PO HS 02/11/21 02/11/21 (1,500 mg) tablet (Calcium) fexofenadine 180 mg tablet 180 mg PO QAM 02/11/21 02/11/21 (Karlee Allergy) fluticasone fur. 100 mcg-umeclid 1 inh INHALATION QAM 02/11/21 02/11/21 62.5 mcg-vilant 25 mcg inhalat.powder (Trelegy Ellipta) lactobacillus combination no.4 3 3,000 mmu cells PO QAM 02/11/21 02/11/21 billion cell capsule (Probiotic) levetiracetam 1,000 mg tablet 1,000 mg PO BID 02/11/21 02/11/21 (Keppra) nystatin 100,000 unit/mL oral 5 ml MUCOUS MEMBRANE UD 02/11/21 02/11/21 suspension penicillin V potassium 500 mg 500 mg PO QID 02/11/21 02/11/21 tablet potassium chloride 10 mEq 10 meq PO QAM 02/11/21 02/11/21 tablet,extended release (K-Tab) prednisone 5 mg tablet 5 mg PO QAM 02/11/21 02/11/21 topiramate 100 mg tablet (Topamax) 100 mg PO BID 02/11/21 02/11/21 warfarin 10 mg tablet (Jantoven) 10 mg PO HS 02/11/21 02/11/21 Previous Rx's Medication Instructions Recorded ondansetron 4 mg disintegrating 4 mg PO Q6H PRN #14 tab 10/09/20 tablet gabapentin 300 mg capsule 300 mg PO BID #180 cap 12/28/20 insulin NPH isoph U-100 human 100 See Rx Instructions .ROUTE 01/12/21 unit/mL subcutaneous suspension .COMPLEX #10 ml (Novolin N NPH U-100 Insulin isophane) insulin glargine 100 unit/mL (3 20 unit SUBCUT BID #0 ml 01/12/21 mL) subcutaneous pen (Lantus Solostar U-100 Insulin) sulfamethoxazole 800 1 tab PO MoWeFr #12 tab 01/12/21 mg-trimethoprim 160 mg tablet (Bactrim DS) carbidopa 25 mg-levodopa 100 mg 1 tab PO TID #90 tab 01/31/21 tablet Results & Data (ED) Vital Signs Vital Signs - 24 hr 02/11/21 07:39 02/11/21 07:41 02/11/21 07:52 Temperature 36.2 C L Temperature Source Temporal Artery Scan Pulse Rate 99 H 91 H Pulse Rate [Left Finger] 83 Pulse Rate from SpO2 Sensor 84 Pulse Rhythm Regular Pulse Rhythm [Left Finger] Regular Pulse Strength Normal Pulse Strength [Left Finger] Normal Respiratory Rate 20 18 Respiratory Effort / Characteristics Non-Labored Non-Labored Spontaneous Respiratory Depth Normal Normal Respiratory Pattern Regular Regular Blood Pressure 107/68 Blood Pressure [Left Arm] 115/66 Blood Pressure Mean 81 Blood Pressure Mean [Left Arm] 82 Blood Pressure Position Sitting Blood Pressure Position [Left Arm] Lying Pulse Oximetry 96 94 94 Oxygen Delivery Method Room Air Room Air Sepsis Recent Fever Within 48 Hours No Sepsis New/Unexplained Change in Mental Status No Sepsis Action Taken by Nursing No Action Required 02/11/21 08:00 02/11/21 08:30 02/11/21 09:00 Temperature Temperature Source Pulse Rate 89 78 82 Pulse Rate [Left Finger] Pulse Rate from SpO2 Sensor 78 76 Pulse Rhythm Pulse Rhythm [Left Finger] Pulse Strength Pulse Strength [Left Finger] Respiratory Rate 22 23 19 Respiratory Effort / Characteristics Respiratory Depth Respiratory Pattern Blood Pressure Blood Pressure [Left Arm] Blood Pressure Mean Blood Pressure Mean [Left Arm] Blood Pressure Position Blood Pressure Position [Left Arm] Pulse Oximetry 92 95 Oxygen Delivery Method Sepsis Recent Fever Within 48 Hours Sepsis New/Unexplained Change in Mental Status Sepsis Action Taken by Nursing 02/11/21 09:30 02/11/21 09:39 02/11/21 10:00 Temperature Temperature Source Pulse Rate 81 70 Pulse Rate [Left Finger] 69 Pulse Rate from SpO2 Sensor 78 73 Pulse Rhythm Pulse Rhythm [Left Finger] Irregular Pulse Strength Pulse Strength [Left Finger] Normal Respiratory Rate 20 18 15 Respiratory Effort / Characteristics Non-Labored Respiratory Depth Normal Respiratory Pattern Regular Blood Pressure Blood Pressure [Left Arm] 117/68 Blood Pressure Mean Blood Pressure Mean [Left Arm] 84 Blood Pressure Position Blood Pressure Position [Left Arm] Lying Pulse Oximetry 95 96 93 Oxygen Delivery Method Room Air Sepsis Recent Fever Within 48 Hours Sepsis New/Unexplained Change in Mental Status Sepsis Action Taken by Nursing 02/11/21 10:30 02/11/21 11:00 Temperature Temperature Source Pulse Rate 76 67 Pulse Rate [Left Finger] Pulse Rate from SpO2 Sensor 77 69 Pulse Rhythm Pulse Rhythm [Left Finger] Pulse Strength Pulse Strength [Left Finger] Respiratory Rate 25 H 21 Respiratory Effort / Characteristics Respiratory Depth Respiratory Pattern Blood Pressure Blood Pressure [Left Arm] Blood Pressure Mean Blood Pressure Mean [Left Arm] Blood Pressure Position Blood Pressure Position [Left Arm] Pulse Oximetry 95 95 Oxygen Delivery Method Sepsis Recent Fever Within 48 Hours Sepsis New/Unexplained Change in Mental Status Sepsis Action Taken by Half-Way Medications Current Medication List: was personally reviewed by me Laboratory Data Attestation: I reviewed the patient's lab results. Result diagrams: 02/11/21 08:04 02/11/21 08:04 Lab Results 02/11/21 02/11/21 02/11/21 Range/Units 07:54 08:04 08:04 WBC 4.53 L (4.8-10.8) K/uL RBC 3.95 L (4.7-6.1) M/uL Hgb 10.3 L (14.0-18.0) g/dL Hct 33.2 L (42-52) % MCV 84.1 (80-100) fL MCH 26.1 (25-34) pg MCHC 31.0 L (32-36) g/dL RDW Std Deviation 52.4 H (36.4-46.3) fL RDW Coeff of Lianne 17.1 H (11.5-14.5) % Plt Count 166 (130-400) K/uL MPV 9.9 (7.4-10.4) fL Immature Gran % (Auto) 0.7 % Neut % (Auto) 70.2 % Lymph % (Auto) 18.5 % Fallon % (Auto) 6.2 % Eos % (Auto) 4.2 % Baso % (Auto) 0.2 % Neut # (Auto) 3.18 (1.4-6.5) K/uL Lymph # (Auto) 0.84 L (1.2-3.4) K/uL Fallon # (Auto) 0.28 (0.11-0.59) K/uL Eos # (Auto) 0.19 (0-0.5) K/uL Baso # (Auto) 0.01 (0-0.2) K/uL Immature Gran # (Auto) 0.03 H (0.00-0.02) K/uL PT 11.4 (9.0-12.0) Seconds INR 1.1 (0.9-1.1) APTT 25.1 (21.0-31.0) Seconds PTT Ratio 1.0 VBG pH (7.36-7.41) VBG pCO2 (38-50) mmHg VBG pO2 mmHg VBG HCO3 mmol/L VBG O2 Saturation % VBG Base Excess mEq/L Barometric Pressure mm/Hg Sodium (136-145) mmol/L Potassium (3.5-5.1) mmol/L Chloride (98-107) mmol/L Carbon Dioxide (21-32) mmol/L Anion Gap (3-11) BUN (7-18) mg/dl Creatinine (0.6-1.4) mg/dl Est Cr Clr Drug Dosing ml/min Est GFR ( Amer) ml/min Est GFR (Non-Af Amer) ml/min BUN/Creatinine Ratio (10-20) Glucose (70-99) mg/dl POC Glucose 226 H (70-99) mg/dl Lactate (0.4-2.0) mmol/L Calcium (8.5-10.1) mg/dl Magnesium (1.8-2.4) mg/dl Total Bilirubin (0.2-1) mg/dl AST (15-37) U/L ALT (12-78) U/L Alkaline Phosphatase (45-117) U/L Troponin I (0-0.045) ng/ml Total Protein (6.4-8.2) gm/dl Albumin (3.4-5.0) gm/dl Globulin (2.5-4.0) gm/dl Albumin/Globulin Ratio (0.9-2) COVID-19 Eval Order SARS-CoV-2 (PCR) (Negative) 02/11/21 02/11/21 02/11/21 Range/Units 08:04 08:37 08:37 WBC (4.8-10.8) K/uL RBC (4.7-6.1) M/uL Hgb (14.0-18.0) g/dL Hct (42-52) % MCV (80-100) fL MCH (25-34) pg MCHC (32-36) g/dL RDW Std Deviation (36.4-46.3) fL RDW Coeff of Lianne (11.5-14.5) % Plt Count (130-400) K/uL MPV (7.4-10.4) fL Immature Gran % (Auto) % Neut % (Auto) % Lymph % (Auto) % Fallon % (Auto) % Eos % (Auto) % Baso % (Auto) % Neut # (Auto) (1.4-6.5) K/uL Lymph # (Auto) (1.2-3.4) K/uL Fallon # (Auto) (0.11-0.59) K/uL Eos # (Auto) (0-0.5) K/uL Baso # (Auto) (0-0.2) K/uL Immature Gran # (Auto) (0.00-0.02) K/uL PT (9.0-12.0) Seconds INR (0.9-1.1) APTT (21.0-31.0) Seconds PTT Ratio VBG pH (7.36-7.41) VBG pCO2 (38-50) mmHg VBG pO2 mmHg VBG HCO3 mmol/L VBG O2 Saturation % VBG Base Excess mEq/L Barometric Pressure mm/Hg Sodium 141 (136-145) mmol/L Potassium 3.7 (3.5-5.1) mmol/L Chloride 111 H (98-107) mmol/L Carbon Dioxide 18 L (21-32) mmol/L Anion Gap 11.0 (3-11) BUN 30 H (7-18) mg/dl Creatinine 1.53 H (0.6-1.4) mg/dl Est Cr Clr Drug Dosing 51.8 ml/min Est GFR ( Amer) 50.8 ml/min Est GFR (Non-Af Amer) 43.8 ml/min BUN/Creatinine Ratio 19.7 (10-20) Glucose 233 H (70-99) mg/dl POC Glucose (70-99) mg/dl Lactate (0.4-2.0) mmol/L Calcium 9.2 (8.5-10.1) mg/dl Magnesium 2.0 (1.8-2.4) mg/dl Total Bilirubin 0.5 (0.2-1) mg/dl AST 19 (15-37) U/L ALT 21 (12-78) U/L Alkaline Phosphatase 73 (45-117) U/L Troponin I < 0.015 (0-0.045) ng/ml Total Protein 6.2 L (6.4-8.2) gm/dl Albumin 3.1 L (3.4-5.0) gm/dl Globulin 3.1 (2.5-4.0) gm/dl Albumin/Globulin Ratio 1.0 (0.9-2) COVID-19 Eval Order Covid19 at [facility] SARS-CoV-2 (PCR) NEGATIVE (Negative) 02/11/21 02/11/21 Range/Units 10:50 10:50 WBC (4.8-10.8) K/uL RBC (4.7-6.1) M/uL Hgb (14.0-18.0) g/dL Hct (42-52) % MCV (80-100) fL MCH (25-34) pg MCHC (32-36) g/dL RDW Std Deviation (36.4-46.3) fL RDW Coeff of Lianne (11.5-14.5) % Plt Count (130-400) K/uL MPV (7.4-10.4) fL Immature Gran % (Auto) % Neut % (Auto) % Lymph % (Auto) % Fallon % (Auto) % Eos % (Auto) % Baso % (Auto) % Neut # (Auto) (1.4-6.5) K/uL Lymph # (Auto) (1.2-3.4) K/uL Fallon # (Auto) (0.11-0.59) K/uL Eos # (Auto) (0-0.5) K/uL Baso # (Auto) (0-0.2) K/uL Immature Gran # (Auto) (0.00-0.02) K/uL PT (9.0-12.0) Seconds INR (0.9-1.1) APTT (21.0-31.0) Seconds PTT Ratio VBG pH 7.34 L (7.36-7.41) VBG pCO2 36 L (38-50) mmHg VBG pO2 30 mmHg VBG HCO3 19 mmol/L VBG O2 Saturation < 60.0 % VBG Base Excess -6.4 mEq/L Barometric Pressure 730.6 mm/Hg Sodium (136-145) mmol/L Potassium (3.5-5.1) mmol/L Chloride (98-107) mmol/L Carbon Dioxide (21-32) mmol/L Anion Gap (3-11) BUN (7-18) mg/dl Creatinine (0.6-1.4) mg/dl Est Cr Clr Drug Dosing ml/min Est GFR ( Amer) ml/min Est GFR (Non-Af Amer) ml/min BUN/Creatinine Ratio (10-20) Glucose (70-99) mg/dl POC Glucose (70-99) mg/dl Lactate 1.4 (0.4-2.0) mmol/L Calcium (8.5-10.1) mg/dl Magnesium (1.8-2.4) mg/dl Total Bilirubin (0.2-1) mg/dl AST (15-37) U/L ALT (12-78) U/L Alkaline Phosphatase (45-117) U/L Troponin I (0-0.045) ng/ml Total Protein (6.4-8.2) gm/dl Albumin (3.4-5.0) gm/dl Globulin (2.5-4.0) gm/dl Albumin/Globulin Ratio (0.9-2) COVID-19 Eval Order SARS-CoV-2 (PCR) (Negative) Administered Medications Discontinued Medications Diphenhydramine HCl (Diphenhydramine 50 Mg/Ml Vial) 25 mg IV NOW STA Stop: 02/11/21 08:42 Last Admin: 02/11/21 09:06 Dose: 25 mg Documented by: [id number] Famotidine (Pepcid 20mg Iv Push) 20 mg in 5 mls @ 2.5 mls/min IV NOW STA Stop: 02/11/21 08:42 Last Admin: 02/11/21 09:06 Dose: 2.5 mls/min Documented by: [id number] Sodium Chloride (Nss 1000ml) 500 mls @ 999 mls/hr IV .Q31M ONE Stop: 02/11/21 09:49 Last Infusion: 02/11/21 12:06 Dose: 0 mls/hr Documented by: [id number] Admin: 02/11/21 11:00 Dose: 999 mls/hr Documented by: [id number] Sodium Chloride (Nss 1000ml) 1,000 mls @ 999 mls/hr IV .Q1H1M ONE Stop: 02/11/21 11:18 Last Admin: 02/11/21 12:06 Dose: 999 mls/hr Documented by: [id number] Acetaminophen (Ofirmev) 1,000 mg in 100 mls @ 400 mls/hr IV NOW STA Stop: 02/11/21 10:49 Last Admin: 02/11/21 12:05 Dose: 400 mls/hr Documented by: [id number] Ioversol (Optiray 320 125ml) 108 ml IV ONCE ONE Stop: 02/11/21 09:42 Last Admin: 02/11/21 09:41 Dose: 108 ml Documented by: [id number] Methylprednisolone (Methylprednisolone 125 Mg/2 Ml Vial) 125 mg IV NOW STA Stop: 02/11/21 08:42 Last Admin: 02/11/21 09:07 Dose: 125 mg Documented by: [id number] Imaging Data Radiologist's Impression: Chest X-Ray 02/11/21 08:27 SINGLE VIEW CHEST CLINICAL HISTORY: Strokelike symptoms. FINDINGS: 2 AP, portable, upright chest radiographs are compared to chest x-ray and chest CT dated 01/09/2021. The patient is status post midline sternotomy. The heart is enlarged noting atherosclerotic calcification of the thoracic aorta. The pulmonary vasculature is noncongested. Dependent airspace opacities likely represent scarring/atelectasis. Suture material is noted at the left lung base. No large pleural effusion or pneumothorax is seen. The skeletal structures are osteopenic. The bony thorax is grossly intact. Fusion hardware is seen in the l ower cervical spine. IMPRESSION: 1. Cardiomegaly without radiographic evidence of congestive failure. 2. Bibasilar airspace opacities likely represent scarring/atelectasis. Clinical correlation will be required. ACT 112: Negative or not required by law. Electronically signed by: Tan Burleson M.D. 02/11/2021 8:[address] 02/11/21 08:27 CT head/brain wo con CLINICAL HISTORY: 75 years-old Male with Stroke Like Symptoms. Acute weakness with headache and strokelike symptoms TECHNIQUE: Multiple axial CT images of the head were obtained without contrast. A dose lowering technique was utilized adhering to the principles of ALARA. COMPARISON: Head CT 01/09/2021 FINDINGS: No acute intracranial hemorrhage, midline shift, intracranial mass, hydrocephalus, territorial ischemia or abnormal extra-axial collection. White matter hypodensities suggestive of chronic microvascular ischemic disease. Mild involutional changes. Cerebral vascular calcifications. The calvarium is intact. Left greater than right mastoid effusions. Paranasal sinuses are generally clear. Unremarkable soft tissues. Prior bilateral lens repair. IMPRESSION: No acute intracranial abnormality. ACT 112: Negative or not required by law. The above report was generated using voice recognition software. It may contain grammatical, syntax or spelling errors. Electronically signed by: Delvis Orozco M.D. 02/11/2021 9:42 AM Head CTA 02/11/21 08:41 CT ANGIOGRAM OF THE BRAIN; CT ANGIOGRAM OF THE NECK CLINICAL HISTORY: Right-sided weakness. Headache. COMPARISON STUDY: Unenhanced CT of the brain performed the same day 02/11/2021. MR angiogram of the brain dated 01/20/2020. MR angiogram of the neck dated . TECHNIQUE: Following the IV administration of 108 of Optiray 320, CT angiogram of the head and neck was performed from the aortic arch to the vertex. Images are reviewed in the axial, sagittal, and coronal planes. 3-D MIPS images are created and assessed. The patient was premedicated for a reported history of contrast allergy. IV contrast was administered without complication. All measurements were calculated based on NASCET criteria. A dose lowering techniqu e was utilized adhering to the principles of ALARA. CT DOSE: 1283.15 mGy.cm FINDINGS: Brain parenchyma: There is age-related involutional change noting mild subcortical and periventricular microangiopathic disease. There is no evidence of hemorrhage, mass effect, or acute territorial ischemia noting angiographic phase technique. There is no evidence of enhancing mass lesion on the angiogram phase images. The ventricles, sulci, and cisterns are prominent secondary to involutional change. Gallego-white matter differentiation is preserved. No extra- axial fluid collection is seen. Thoracic aorta: There is mild atherosclerotic calcification of the thoracic aorta. Visualized portions of the thoracic aorta are normal in caliber. The aortic arch demonstrates standard 3-vessel anatomy. Right carotid arterial system: The right common carotid artery is patent, as are the right internal and external carotid arteries. Advanced plaque is noted in the carotid bulb. Left carotid arterial system: The left common carotid artery is widely patent, as are the left internal and external carotid arteries. Calcified plaque is noted in the carotid bulb. Vertebral arteries: The vertebral arteries are widely patent bilaterally noting a right-sided dominance. Subclavian arteries: Widely patent bilaterally. Intracranial vasculature: There is atherosclerotic calcification of the cavernous carotid arteries. There is origin of the right posterior cerebral artery. A posterior communicating artery is seen on the left. The internal carotid arteries are patent at the skull base, as are the anterior and middle cerebral arteries bilaterally. The vertebrobasilar system and posterior cerebral arteries are widely patent. The right vertebral artery is dominant. The intracranial left vertebral artery is diminutive. There is no aneurysm, high- grade stenosis, or focal vessel cut off seen throughout the intracranial circulation. Jugular veins: Patent bilaterally. Dural sinuses: Patent. Lung apices: Partially visualized upper lobe lung parenchyma appears clear. Soft tissues: The visualized pharyngeal soft tissues are normal in appearance noting angiographic phase technique. The oropharyngeal airway appears widely patent. The salivary and thyroid glands are normal in appearance. No cervical lymphadenopathy is seen. Skeletal structures: The calvarium appears intact. The cervical spine is maintained noting multilevel spondylotic as well as postoperative change. No lytic or blastic lesion is seen. Orbits: The bony orbits are intact. Orbital contents are normal as visualized noting bilateral ocular lens implants. Sinuses and mastoids: There is trace mucosal thickening within the maxillary antra. The remaining paranasal sinuses are clear. There are left larger than right mastoid effusions. IMPRESSION: 1. There is no evidence of hemorrhage, mass effect, or acute territorial ischemia noting angiographic phase technique. 2. Unremarkable CT angiogram of the brain. 3. Unremarkable CT angiogram of the neck. ACT 112: Negative or not required by law. Electronically signed by: Tan Burleson M.D. 02/11/2021 10:07 AM Neck CTA 02/11/21 08:41 CT ANGIOGRAM OF THE BRAIN; CT ANGIOGRAM OF THE NECK CLINICAL HISTORY: Right-sided weakness. Headache. COMPARISON STUDY: Unenhanced CT of the brain performed the same day 02/11/2021. MR angiogram of the brain dated 01/20/2020. MR angiogram of the neck dated 12/30. TECHNIQUE: Following the IV administration of 108 of Optiray 320, CT angiogram of the head and neck was performed from the aortic arch to the vertex. Images are reviewed in the axial, sagittal, and coronal planes. 3-D MIPS images are created and assessed. The patient was premedicated for a reported history of contrast allergy. IV contrast was administered without complication. All measurements were calculated based on NASCET criteria. A dose lowering technique was utilized adhering to the principles of ALARA. CT DOSE: 1283.15 mGy.cm FINDINGS: Brain parenchyma: There is age-related involutional change noting mild subcortical and periventricular microangiopathic disease. There is no evidence of hemorrhage, mass effect, or acute territorial ischemia noting angiographic phase technique. There is no evidence of enhancing mass lesion on the angiogram phase images. The ventricles, sulci, and cisterns are prominent secondary to involutional change. Gallego-white matter differentiation is preserved. No extra- axial fluid collection is seen. Thoracic aorta: There is mild atherosclerotic calcification of the thoracic aorta. Visualized portions of the thoracic aorta are normal in caliber. The aortic arch demonstrates standard 3-vessel anatomy. Right carotid arterial system: The right common carotid artery is patent, as are the right internal and external carotid arteries. Advanced plaque is noted in the carotid bulb. Left carotid arterial system: The left common carotid artery is widely patent, as are the left internal and external carotid arteries. Calcified plaque is noted in the carotid bulb. Vertebral arteries: The vertebral arteries are widely patent bilaterally noting a right-sided dominance. Subclavian arteries: Widely patent bilaterally. Intracranial vasculature: There is atherosclerotic calcification of the cavernous carotid arteries. There is origin of the right posterior cerebral artery. A posterior communicating artery is seen on the left. The internal carotid arteries are patent at the skull base, as are the anterior and middle cerebral arteries bilaterally. The vertebrobasilar system and posterior cerebral arteries are widely patent. The right vertebral artery is dominant. The intracranial left vertebral artery is diminutive. There is no aneurysm, high- grade stenosis, or focal vessel cut off seen throughout the intracranial circulation. Jugular veins: Patent bilaterally. Dural sinuses: Patent. Lung apices: Partially visualized upper lobe lung parenchyma appears clear. Soft tissues: The visualized pharyngeal soft tissues are normal in appearance noting angiographic phase technique. The oropharyngeal airway appears widely patent. The salivary and thyroid glands are normal in appearance. No cervical lymphadenopathy is seen. Skeletal structures: The calvarium appears intact. The cervical spine is maintained noting multilevel spondylotic as well as postoperative change. No lytic or blastic lesion is seen. Orbits: The bony orbits are intact. Orbital contents are normal as visualized noting bilateral ocular lens implants. Sinuses and mastoids: There is trace mucosal thickening within the maxillary antra. The remaining paranasal sinuses are clear. There are left larger than right mastoid effusions. IMPRESSION: 1. There is no evidence of hemorrhage, mass effect, or acute territorial ischemia noting angiographic phase technique. 2. Unremarkable CT angiogram of the brain. 3. Unremarkable CT angiogram of the neck. ACT 112: Negative or not required by law. Electronically signed by: Tan Burleson M.D. 02/11/2021 10:07 AM Discharge Plan Visit Data Chief Complaint: TIA Symptoms Stated Complaint: TIA/STOKE SYMP-SOB LAST NIGHT-TROUBLE MOVING R [facility] ED Provider: Josh De La [facility] ED Midlevel Provider: Shon Gonzalez Discharge Problem: Acute right-sided muscle weakness, SHAYNN (acute kidney injury), Metabolic acidosis Patient Disposition: Admitted As Inpatient Condition: Good
[2021-02-11 08:48] LABS: INR 1.1 (0.9-1.1); Partial Thromboplastin Time 25.1 Seconds (21.0-31.0); Prothrombin Time 11.4 Seconds (9.0-12.0)
[2021-02-11 08:53] LABS: Alanine Aminotransferase 21 U/L (12-78); Albumin Level 3.1 gm/dl (3.4-5.0); Aspartate Aminotransferase 19 U/L (15-37); BUN Creatinine Ratio 19.7 (10-20); Blood Urea Nitrogen 30 mg/dl (7-18); Calcium 9.2 mg/dl (8.5-10.1); Carbon Dioxide 18 mmol/L (21-32); Chloride 111 mmol/L (98-107); Creatinine Clr Calc Pharmacy 51.8 ml/min; Est GFR (African American) 50.8 ml/min; Est GFR (Non-African American) 43.8 ml/min; Glucose 233 mg/dl (70-99); Potassium 3.7 mmol/L (3.5-5.1); Sodium 141 mmol/L (136-145)
--- NOTE | 2021-02-11 08:54 | XRay Report ---
SINGLE VIEW CHEST CLINICAL HISTORY: Strokelike symptoms. FINDINGS: 2 AP, portable, upright chest radiographs are compared to chest x-ray and chest CT dated 03/2021. The patient is status post midline sternotomy. The heart is enlarged noting atherosclerotic calcification of the thoracic aorta. The pulmonary vasculature is noncongested. Dependent airspace op acities likely represent scarring/atelectasis. Suture material is noted at the left lung base. No lar ge pleural effusion or pneumothorax is seen. The skeletal structures are osteopenic. The bony thorax is grossly intact. Fusion hardware is seen in the lower cervical spine. IMPRESSION: 1. Cardiomegaly without radiographic evidence of congestive failure. 2. Bibasilar airspace opacities likely represent scarring/atelectasis. Clinical correlation will be r equired. ACT 112: Negative or not required by law. Electronically signed by: Tan Burleson M.D. 02/11/2021 8:53 AM
[2021-02-11 08:57] LABS: Alkaline Phosphatase 73 U/L (45-117); Bilirubin,Total 0.5 mg/dl (0.2-1); Globulin 3.1 gm/dl (2.5-4.0); Total Protein 6.2 gm/dl (6.4-8.2); Troponin I < 0.015 ng/ml (0-0.045)
[2021-02-11] MEDS ORDERED: SODIUM CHLORIDE 0.9% 1000ML 500 ML IV ONE (09:19)
[2021-02-11] MEDS ORDERED: OPTIRAY 320 125ml IV ONE (09:41)
--- NOTE | 2021-02-11 09:43 | CT Scan Report ---
CT head/brain wo con CLINICAL HISTORY: 75 years-old Male with Stroke Like Symptoms. Acute weakness with headache and stro kelike symptoms TECHNIQUE: Multiple axial CT images of the head were obtained without contrast. A dose lowering tech nique was utilized adhering to the principles of ALARA. COMPARISON: Head CT 01/09/2021 FINDINGS: No acute intracranial hemorrhage, midline shift, intracranial mass, hydrocephalus, territorial ischem ia or abnormal extra-axial collection. White matter hypodensities suggestive of chronic microvascular ischemic disease. Mild involutional changes. Cerebral vascular calcifications. The calvarium is intact. Left greater than right mastoid effusions. Paranasal sinuses are generally clear. Unremarkable soft tissues. Prior bilateral lens repair. IMPRESSION: No acute intracranial abnormality. ACT 112: Negative or not required by law. The above report was generated using voice recognition software. It may contain grammatical, syntax o r spelling errors. Electronically signed by: Delvis Orozco M.D. 02/11/2021 9:42 AM
--- NOTE | 2021-02-11 10:09 | CT Scan Report ---
CT ANGIOGRAM OF THE BRAIN; CT ANGIOGRAM OF THE NECK CLINICAL HISTORY: Right-sided weakness. Headache. COMPARISON STUDY: Unenhanced CT of the brain performed the same day 02/11/2021. MR angiogram of the brain dated 01/20/2020. MR angiogram of the neck dated 01/21/2020. TECHNIQUE: Following the IV administration of 108 of Optiray 320, CT angiogram of the head and neck w as performed from the aortic arch to the vertex. Images are reviewed in the axial, sagittal, and raine nal planes. 3-D MIPS images are created and assessed. The patient was premedicated for a reported his tory of contrast allergy. IV contrast was administered without complication. All measurements were ca lculated based on NASCET criteria. A dose lowering technique was utilized adhering to the principles of ALARA. CT DOSE: 1283.15 mGy.cm FINDINGS: Brain parenchyma: There is age-related involutional change noting mild subcortical and periventricula r microangiopathic disease. There is no evidence of hemorrhage, mass effect, or acute territorial isc hemia noting angiographic phase technique. There is no evidence of enhancing mass lesion on the angio gram phase images. The ventricles, sulci, and cisterns are prominent secondary to involutional change . Gallego-white matter differentiation is preserved. No extra-axial fluid collection is seen. Thoracic aorta: There is mild atherosclerotic calcification of the thoracic aorta. Visualized portion s of the thoracic aorta are normal in caliber. The aortic arch demonstrates standard 3-vessel anatomy . Right carotid arterial system: The right common carotid artery is patent, as are the right internal a nd external carotid arteries. Advanced plaque is noted in the carotid bulb. Left carotid arterial system: The left common carotid artery is widely patent, as are the left production internship al and external carotid arteries. Calcified plaque is noted in the carotid bulb. Vertebral arteries: The vertebral arteries are widely patent bilaterally noting a right-sided dominan ce. Subclavian arteries: Widely patent bilaterally. Intracranial vasculature: There is atherosclerotic calcification of the cavernous carotid arteries. T here is origin of the right posterior cerebral artery. A posterior communicating artery is seen on the left. The internal carotid arteries are patent at the skull base, as are the anterior and mid dle cerebral arteries bilaterally. The vertebrobasilar system and posterior cerebral arteries are wid deann patent. The right vertebral artery is dominant. The intracranial left vertebral artery is diminut anais. There is no aneurysm, high-grade stenosis, or focal vessel cut off seen throughout the intracran ial circulation. Jugular veins: Patent bilaterally. Dural sinuses: Patent. Lung apices: Partially visualized upper lobe lung parenchyma appears clear. Soft tissues: The visualized pharyngeal soft tissues are normal in appearance noting angiographic pha se technique. The oropharyngeal airway appears widely patent. The salivary and thyroid glands are nor mal in appearance. No cervical lymphadenopathy is seen. Skeletal structures: The calvarium appears intact. The cervical spine is maintained noting multilevel spondylotic as well as postoperative change. No lytic or blastic lesion is seen. Orbits: The bony orbits are intact. Orbital contents are normal as visualized noting bilateral ocular lens implants. Sinuses and mastoids: There is trace mucosal thickening within the maxillary antra. The remaining par anasal sinuses are clear. There are left larger than right mastoid effusions. IMPRESSION: 1. There is no evidence of hemorrhage, mass effect, or acute territorial ischemia noting angiographic phase technique. 2. Unremarkable CT angiogram of the brain. 3. Unremarkable CT angiogram of the neck. ACT 112: Negative or not required by law. Electronically signed by: Tan Burleson M.D. 02/11/2021 10:07 AM
[2021-02-11] MEDS ORDERED: SODIUM CHLORIDE 0.9% 1000ML 1,000 ML IV ONE (10:18)
[2021-02-11] MEDS ORDERED: ACETAMINOPHEN 1,000 MG/100 ML VIAL IV STA (10:35)
--- NOTE | 2021-02-11 11:02 | History & Physical Report ---
Date of Service February 11, 2021 Assessment & Plan (1) Right sided weakness: Plan: New right sided weakness MRI brain w/o contrast - no acute intracranial abnormality, discussed with Dr Sam and nothing to preclude starting on IV heparin drip CT head, angiogram head/neck - negative Will hold off antiplatelets currently as no clear etiology for his symptoms Possible TIA TTE PT/OT Stroke order set without tPA used Consult neurology (2) Subtherapeutic anticoagulation: Plan: IV heparin drip for coverage Continue warfarin 10mg PO daily -> may need to increase if not change in INR (3) History of aortic valve replacement: Plan: Mechanical. INR management as above. (4) Diabetes: Plan: HbA1C 8.5 in December Consult pharmacy for glycemic control (5) Interstitial lung disease: Plan: Breathing at baseline. No need for further steroids given in ER. No longer on Bactrim for PCP prophylaxis. (6) Polymyositis: Plan: CPK recently negative. No need to repeat this. (7) Rheumatoid arthritis: Plan: Continue chronic prednisone 5mg PO daily (8) PAF (paroxysmal atrial fibrillation): Plan: Currently in NSR. Anticoagulation as above. (9) Parkinsonism: Plan: Continue Sinemet Plan: VTE Prophylaxis - IV heparin as above Diet - heart healthy, T2DM, aspiration precautions (chronically aspirates) Disposition - obs status to PCU Admission and Anticipated Discharge Date Admission Date: February 11, 2021 History of Present Illness Chief Complaint: Right sided weakness Primary Care Provider: Josh Gaspar MD Xavi Bradford is a 75 year old male with history of TIAs and mechanical heart valve who presents to the ER with right sided weakness that started yesterday. He reports recently discontinuing his warfarin for a dental procedure down in [place] with no cross coverage of anticoagulation (he used to take Lovenox but was told he didn't need to this time). On the way back home yesterday with hindsight he was dragging his leg through the airport more. On waking up today around 3am however he noticed a much more profound right sided weakness. Struggling to stay upright when he sat up in bed and was falling to the right side. No change in voice, hearing or speech. As it was not improving he decided to call EMS. He notes his O2 sats were in the mid 80s last night and wonders if that had anything to do with it. He started back on warfarin 10mg daily since Sunday (2 days ago). On prior notes he has an intermittent left sided weakness however a right sided weakness appears to be new. In the ER CT head and head/neck angiograms were unremarkable. He was referred to medicine for right sided weakness and metabolic acidosis. Allergies Allergy/AdvReac Type Severity Reaction Status Date / Time Iodinated Contrast Media Allergy Severe Anaphylaxis Verified 02/11/21 09:47 shellfish derived Allergy Severe Anaphylaxis Verified 02/11/21 09:47 tamsulosin [From Flomax] Allergy Intermediate Itching Unverified 02/11/21 09:47 Tetanus Vaccines and Toxoid Allergy Unknown Unknown Verified 02/11/21 09:47 Home Medications Medication Instructions Recorded Confirmed Type albuterol sulfate 90 mcg/actuation 2 puff INHALATION Q4H PRN 01/20/20 02/11/21 History aerosol inhaler (Ventolin HFA) cholecalciferol (vitamin D3) 50 2,000 unit PO HS 01/20/20 02/11/21 History mcg (2,000 unit) capsule (Vitamin D3) nitroglycerin 0.4 mg sublingual 0.4 mg SUBLINGUAL DIRECTED PRN 01/20/20 02/11/21 History tablet atorvastatin 40 mg tablet 40 mg PO HS 05/28/20 02/11/21 History insulin aspart U-100 100 unit/mL 0 unit SUBCUT ACHS 09/04/20 02/11/21 History (3 mL) subcutaneous pen (Novolog Flexpen U-100 Insulin aspart) aspirin 81 mg tablet,delayed 81 mg PO QAM 10/09/20 02/11/21 History release (Adult Low Dose Aspirin) ondansetron 4 mg disintegrating 4 mg PO Q6H PRN #14 tab 10/09/20 02/11/21 Rx tablet sennosides 8.6 mg tablet (Senokot) 17.2 mg PO QAM 10/19/20 02/11/21 History gabapentin 300 mg capsule 300 mg PO BID #180 cap 12/28/20 02/11/21 Rx insulin NPH isoph U-100 human 100 See Rx Instructions .ROUTE 01/12/21 02/11/21 Rx unit/mL subcutaneous suspension .COMPLEX #10 ml (Novolin N NPH U-100 Insulin isophane) insulin glargine 100 unit/mL (3 20 unit SUBCUT BID #0 ml 01/12/21 02/11/21 Rx mL) subcutaneous pen (Lantus Solostar U-100 Insulin) sulfamethoxazole 800 1 tab PO MoWeFr #12 tab 01/12/21 02/11/21 Rx mg-trimethoprim 160 mg tablet (Bactrim DS) carbidopa 25 mg-levodopa 100 mg 1 tab PO TID #90 tab 01/31/21 02/11/21 Rx tablet calcium carbonate 600 mg calcium 600 mg PO HS 02/11/21 02/11/21 History (1,500 mg) tablet (Calcium) fexofenadine 180 mg tablet 180 mg PO QAM 02/11/21 02/11/21 History (Karlee Allergy) fluticasone fur. 100 mcg-umeclid 1 inh INHALATION QAM 02/11/21 02/11/21 History 62.5 mcg-vilant 25 mcg inhalat.powder (Trelegy Ellipta) lactobacillus combination no.4 3 3,000 mmu cells PO QAM 02/11/21 02/11/21 History billion cell capsule (Probiotic) levetiracetam 1,000 mg tablet 1,000 mg PO BID 02/11/21 02/11/21 History (Keppra) nystatin 100,000 unit/mL oral 5 ml MUCOUS MEMBRANE UD 02/11/21 02/11/21 History suspension penicillin V potassium 500 mg 500 mg PO QID 02/11/21 02/11/21 History tablet potassium chloride 10 mEq 10 meq PO QAM 02/11/21 02/11/21 History tablet,extended release (K-Tab) prednisone 5 mg tablet 5 mg PO QAM 02/11/21 02/11/21 History topiramate 100 mg tablet (Topamax) 100 mg PO BID 02/11/21 02/11/21 History warfarin 10 mg tablet (Jantoven) 10 mg PO HS 02/11/21 02/11/21 History Past Med/Surg History Medical History Abnormal CT scan, chest Abnormal CT scan, chest Acute hyperglycemia Acute left-sided muscle weakness CAD (coronary artery disease) Chest pain Chronic pulmonary aspiration Dehydration Diabetes Fall HLD (hyperlipidemia) Hypoxia Interstitial lung disease Interstitial lung disease Interstitial lung disease due to connective tissue disease Lung nodule Neurogenic claudication Nocturnal hypoxia Palliative care encounter Polymyositis Polymyositis Polymyositis Prostate cancer s/p XRT Rheumatoid arthritis Rheumatoid arthritis Seizure-like activity Shortness of breath Stroke-like symptom 12/2019, w/ blurry vision and dysarthria. mild R sided wkness. attending outpatient physical therapy w/ good improvement in strength (5+/5 strength of all 4 extremities as of 05/28/20) Supratherapeutic INR Thoracic ascending aortic aneurysm s/p repair Weakness Surgical History H/O hernia repair History of aortic valve replacement mechanical History of cholecystectomy History of fusion of cervical spine History of gastric bypass lap band History of heart artery stent History of lung biopsy 2019 History of partial nephrectomy Family History Mother , age 87 of pulmonary issues Rheumatoid arthritis Father , in his mid 80s of a stroke Stroke Other Coronary heart disease Social History Smoking Status: Never smoker Second Hand Exposure: No; Hx Alcohol Use: No Hx Substance Use: No Preferred Language: Sinhala Communication Ability: Effective Hearing Ability: Hard of Hearing Nurses Educator Required: No Beliefs That Will Affect Care: None marital status: / Current Living Situation: Alone Current Living Situation Comment: spends nights with son, has [employer] week from 12-29 current occupational status: retired 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 Feels Safe at Home: Yes Assistive Devices: Oxygen - at Night and Walker Review of Systems Review of Systems: All systems reviewed & are unremarkable except as noted in HPI & below Physical Exam Constitutional: well developed; + not well nourished and no acute distress Eyes: PERRL, conjunctivae normal, anicteric sclerae ENMT: external ear and nose normal, oropharynx normal Neck: trachea midline, no thyromegaly Respiratory: normal respiratory effort, lungs clear to auscultation Cardiovascular: Rate/Rhythm: regular rate and regular rhythm Extremities: normal capillary refill and + pedal edema (1+ b/l pre tibial); no calf tenderness Gastrointestinal (Abdomen): normal bowel sounds, soft, nontender, no hepatosplenomegaly Skin: no rashes, warm and dry Neurologic: moves all extremities, + focal motor deficit (Generalized right sided extremity weakness LE > UE, right foot drop) and awake; not confused Speech / Cognition: normal speech Motor/Sensory: + pronator drift (right); no tremor and no sensory deficit Cranial Nerves: PERRL, EOM intact bilaterally, normal facial strength, tongue midline, able to rotate head bilaterally, able to elevate shoulders bilaterally, no nystagmus and symmetric palate elevation Coordination: + abnormal [id number] test (right sided slow and less accurate) Psychiatric: Orientation: alert and oriented x 3 Affect: euthymic affect Genitourinary: no CVA tenderness Results & Data Results & Data ([facility]) Vital Signs (Past 12 Hours) Vital Signs Temp Pulse Pulse Resp BP BP Pulse Ox 02/11/21 09:39 69 18 117/68 96 02/11/21 07:41 36.2 C L 99 H 18 107/68 94 02/11/21 07:39 83 20 115/66 96 Diagnostic Findings SINGLE VIEW CHEST CLINICAL HISTORY: Strokelike symptoms. FINDINGS: 2 AP, portable, upright chest radiographs are compared to chest x-ray and chest CT dated 01/09/2021. The patient is status post midline sternotomy. The heart is enlarged noting atherosclerotic calcification of the thoracic aorta. The pulmonary vasculature is noncongested. Dependent airspace opacities likely represent scarring/atelectasis. Suture material is noted at the left lung base. No large pleural effusion or pneumothorax is seen. The skeletal structures are osteopenic. The bony thorax is grossly intact. Fusion hardware is seen in the lower cervical spine. IMPRESSION: 1. Cardiomegaly without radiographic evidence of congestive failure. 2. Bibasilar airspace opacities likely represent scarring/atelectasis. Clinical correlation will be required. CT head/brain wo con CLINICAL HISTORY: 75 years-old Male with Stroke Like Symptoms. Acute weakness with headache and strokelike symptoms TECHNIQUE: Multiple axial CT images of the head were obtained without contrast. A dose lowering technique was utilized adhering to the principles of ALARA. COMPARISON: Head CT 01/09/2021 FINDINGS: No acute intracranial hemorrhage, midline shift, intracranial mass, hydrocephalus, territorial ischemia or abnormal extra-axial collection. White matter hypodensities suggestive of chronic microvascular ischemic disease. Mild involutional changes. Cerebral vascular calcifications. The calvarium is intact. Left greater than right mastoid effusions. Paranasal sinuses are generally clear. Unremarkable soft tissues. Prior bilateral lens repair. IMPRESSION: No acute intracranial abnormality. CT ANGIOGRAM OF THE BRAIN; CT ANGIOGRAM OF THE NECK CLINICAL HISTORY: Right-sided weakness. Headache. COMPARISON STUDY: Unenhanced CT of the brain performed the same day 02/11/2021. MR angiogram of the brain dated 01/20/2020. MR angiogram of the neck dated 01/21/2020. TECHNIQUE: Following the IV administration of 108 of Optiray 320, CT angiogram of the head and neck was performed from the aortic arch to the vertex. Images are reviewed in the axial, sagittal, and coronal planes. 3-D MIPS images are created and assessed. The patient was premedicated for a reported history of contrast allergy. IV contrast was administered without complication. All measurements were calculated based on NASCET criteria. A dose lowering technique was utilized adhering to the principles of ALARA. CT DOSE: 1283.15 mGy.cm FINDINGS: Brain parenchyma: There is age-related involutional change noting mild subcortical and periventricular microangiopathic disease. There is no evidence of hemorrhage, mass effect, or acute territorial ischemia noting angiographic phase technique. There is no evidence of enhancing mass lesion on the angiogram phase images. The ventricles, sulci, and cisterns are prominent secondary to i nvolutional change. Gallego-white matter differentiation is preserved. No extra- axial fluid collection is seen. Thoracic aorta: There is mild atherosclerotic calcification of the thoracic aorta. Visualized portions of the thoracic aorta are normal in caliber. The aortic arch demonstrates standard 3-vessel anatomy. Right carotid arterial system: The right common carotid artery is patent, as are the right internal and external carotid arteries. Advanced plaque is noted in the carotid bulb. Left carotid arterial system: The left common carotid artery is widely patent, as are the left internal and external carotid arteries. Calcified plaque is noted in the carotid bulb. Vertebral arteries: The vertebral arteries are widely patent bilaterally noting a right-sided dominance. Subclavian arteries: Widely patent bilaterally. Intracranial vasculature: There is atherosclerotic calcification of the cavernous carotid arteries. There is origin of the right posterior cerebral artery. A posterior communicating artery is seen on the left. The internal carotid arteries are patent at the skull base, as are the anterior and middle cerebral arteries bilaterally. The vertebrobasilar system and posterior cerebral arteries are widely patent. The right vertebral artery is dominant. The intracranial left vertebral artery is diminutive. There is no aneurysm, high- grade stenosis, or focal vessel cut off seen throughout the intracranial circulation. Jugular veins: Patent bilaterally. Dural sinuses: Patent. Lung apices: Partially visualized upper lobe lung parenchyma appears clear. Soft tissues: The visualized pharyngeal soft tissues are normal in appearance noting angiographic phase technique. The oropharyngeal airway appears widely patent. The salivary and thyroid glands are normal in appearance. No cervical lymphadenopathy is seen. Skeletal structures: The calvarium appears intact. The cervical spine is maintained noting multilevel spondylotic as well as postoperative change. No lytic or blastic lesion is seen. Orbits: The bony orbits are intact. Orbital contents are normal as visualized noting bilateral ocular lens implants. Sinuses and mastoids: There is trace mucosal thickening within the maxillary antra. The remaining paranasal sinuses are clear. There are left larger than right mastoid effusions. IMPRESSION: 1. There is no evidence of hemorrhage, mass effect, or acute territorial ischemia noting angiographic phase technique. 2. Unremarkable CT angiogram of the brain. 3. Unremarkable CT angiogram of the neck. Medications Administered ER Medications Given: Solu-medrol 125mg IV Diphenhydramine 25mg IV Famotidine 20mg IV NSS 500ml bolus NSS 1L bolus Acetaminophen 1g IV ECG Indication: other (CVA) Rate (beats per minute): 88 Rhythm: normal sinus Findings: + other (T wave flattening laterally) and + PAC Comparison ECG Date: from (January 09, 2021) Code Status & VTE Plan Code Status Full VTE Prophylaxis Plan VTE Prophylaxis will be ordered: Yes PG Care Time/CCT Total # of Minutes Spent Total Time Spent with Patient: Total time spent is greater than 50% in coordination of care (as documented) at patient's floor/unit and/or counseling patient: Coding Level of Care Code 81560 Initial Inpt Care Lvl 3 Diagnoses Right sided weakness R53.1 Polymyositis M33.20 Interstitial lung disease J84.9 Subtherapeutic anticoagulation Z51.81; Z79.01 Diabetes E11.42; Z79.4 Diabetes mellitus type: type 2 Diabetes mellitus tank terminal gauger insulin use: with assisted use Diabetes mellitus complication status: with neurologic complications Diabetes mellitus complication detail: with polyneuropathy Rheumatoid arthritis M06.9 Rheumatoid arthritis location: unspecified site Rheumatoid factor presence: unspecified presence History of aortic valve replacement Z95.2 PAF (paroxysmal atrial fibrillation) I48.0 Parkinsonism G20 Parkinsonism type: unspecified (1) Diabetes Diabetes mellitus type: type 2 Diabetes mellitus assisted insulin use: with tank terminal gauger use Diabetes mellitus complication status: with neurologic complications Diabetes mellitus complication detail: with polyneuropathy Qualified Code(s): E11.42 - Type 2 diabetes mellitus with diabetic polyneuropathy; Z79.4 - tank terminal gauger (current) use of insulin (2) Rheumatoid arthritis Rheumatoid arthritis location: unspecified site Rheumatoid factor presence: unspecified presence Qualified Code(s): M06.9 - Rheumatoid arthritis, unspecified (3) Parkinsonism Parkinsonism type: unspecified Qualified Code(s): G20 - Parkinson's disease
[2021-02-11 11:10] LABS: Base Excess VBG -6.4 mEq/L; HCO3 VBG 19 mmol/L; PCO2 VBG 36 mmHg (38-50); PO2 VBG 30 mmHg; pH VBG 7.34 (7.36-7.41)
[2021-02-11 11:11] LABS: Oxygen Saturation VBG < 60.0 %
[2021-02-11 12:20] LABS: Appearance Urine Clear (Clear); Bilirubin Urine Negative (Negative); Blood Urine Negative (Negative); Color Urine Yellow; Glucose Urine UA Negative (Negative); Ketones Urine Negative (Negative); Leukocyte Esterase Urine Negative (Negative); Nitrite Urine Negative (Negative); Protein Urine Negative (Negative); Specific Gravity Urine 1.025 (1.000-1.030); Urobilinogen Urine Negative (Negative); pH Urine 5.5 (4.5-7.5)
[2021-02-11] MEDS ORDERED: Heparin IV Adult Wt-Based Standard WITH Bolus Protocol IV SCH (13:53)
--- NOTE | 2021-02-11 13:53 | Magnetic Resonance Report ---
MRI OF THE BRAIN WITHOUT IV CONTRAST CLINICAL HISTORY: Right-sided weakness. COMPARISON STUDY: CT of the brain dated 02/11/2021. MRI of the brain dated 09/04/2020. TECHNIQUE: MRI of the brain was performed utilizing various T1 and T2-weighted sequences in the axial , sagittal, and coronal planes. IV contrast was not administered for this examination. FINDINGS: Brain parenchyma: There is age-related involutional change noting mild to moderate subcortical and pe riventricular microangiopathic disease. Small chronic lacunar infarcts are noted in the cerebellum. T here is no hemorrhage or mass effect. There is no restricted diffusion to suggest acute ischemia. Gra y-white matter differentiation is preserved. No extra-axial fluid collection is seen. The cerebellar tonsils are normal in configuration. Ventricles, sulci, and cisterns: Prominent secondary to involutional change. Pituitary and sella: Partially empty sella is incidentally noted. Intracranial vasculature: Normal flow voids are maintained at the skull base. Orbits: The bony orbits are grossly intact. Orbital contents are normal in appearance noting bilatera l ocular lens implants. Sinuses and mastoids: There are bilateral mastoid effusions. Trace mucosal thickening is noted in the maxillary antra. The remaining paranasal sinuses are clear. Calvarium: Unremarkable. Cervical cord: Partially visualized cervical spinal cord is normal in morphology and signal intensity . IMPRESSION: No acute intracranial abnormality. ACT 112: Negative or not required by law. Electronically signed by: Tan Burleson M.D. 02/11/2021 1:52 PM
[2021-02-11] MEDS ORDERED: HEPARIN SOD (PORCINE) 1000 UNIT/ML IV ONE (15:00)
[2021-02-11] MEDS: HEPARIN SODIUM/DEXTROSE 25,000 UNITS/500 ML BAG IV SCH (15:49)
--- NOTE | 2021-02-11 16:01 | Electrocardiogram Report ---
Test Reason : Blood Pressure : / mmHG Vent. Rate : 088 BPM Atrial Rate : 088 BPM P-R Int : 150 ms QRS Dur : 086 ms QT Int : 372 ms P-R-T Axes : 022 017 107 degrees QTc Int : 450 ms Sinus rhythm with Premature atrial complexes T wave abnormality, consider lateral ischemia Abnormal ECG When compared with ECG of 09-JAN-2021 07:48, Vent. rate has increased BY 32 BPM Confirmed by Josh Vora ([id number]) on 02/11/2021 4:01:31 PM Referred By: REFERRED SELF Confirmed By:Josh Vora
[2021-02-11] MEDS ORDERED: PHARMACY GLYCEMIC MGMT CONSULT PRN (16:51)
[2021-02-11] MEDS ORDERED: NITROGLYCERIN SL 0.4 MG/TAB TAB SL PRN (16:51)
[2021-02-11] MEDS ORDERED: PHARMACIST DISCHARGE MED REC CONSULT PRN (16:51)
[2021-02-11] MEDS ORDERED: ONDANSETRON 4 MG OD TAB PO PRN (16:59)
[2021-02-11] MEDS ORDERED: GLUCOSE 10 TABS/TUBE PO PRN (17:30)
[2021-02-11] MEDS ORDERED: GLUCOSE 40% GEL 15 GM TUBE PO PRN (17:30)
[2021-02-11] MEDS ORDERED: DEXTROSE 50% 50 ML SYRINGE IV PRN (17:30)
[2021-02-11] MEDS ORDERED: GLUCAGON FOR INJ 1 MG VIAL IM PRN (17:30)
[2021-02-11] MEDS ORDERED: CARBOHYDRATES FOR HYPOGLYCEMIA PO PRN (17:30)
[2021-02-11] MEDS ORDERED: INSULIN GLARGINE SOLOSTAR 100 UNITS/ML 3 ML PEN SC STA ×2 (17:31→18:44)
[2021-02-11] MEDS: PENICILLIN V POTASSIUM 500 MG TAB PO SCH ×2 (18:36→20:44)
[2021-02-11] MEDS: CARBIDOPA/LEVODOPA 25/100MG TAB PO SCH ×2 (18:37→20:43)
[2021-02-11] MEDS: WARFARIN SOD 10 MG TAB PO SCH (18:38)
[2021-02-11] MEDS: INSULIN ASPART 100 UNITS/ML 3 ML PEN SC SCH (18:44)
[2021-02-11 20:10] LABS: Partial Thromboplastin Ratio > 5.3
[2021-02-11 20:13] LABS: Partial Thromboplastin Time > 139.0 Seconds (21.0-31.0)
--- NOTE | 2021-02-11 20:28 | Pharmacy Report ---
Pharmacy Glycemic Short Note 2 - Date of Service February 11, 2021 - Glycemic Short BSG Results (Last 24 hours): 02/11/21 02/11/21 02/11/21 07:54 08:04 17:48 Glucose 233 H POC Glucose 226 H 279 H OUTPATIENT ANTIDIABETIC REGIMEN: * Lantus 20 units SC BID * NPH SC 1 unit for every 1 mg of Prednisone (i.e. 40 units for 40 mg) * Novolog SSI SC ACHS (max of 20 units per dose) * HbA1c = 8.5% (01/11/21) ASSESSMENT: * 75 yo M admitted today secondary to stroke-like symptoms. Pharmacy has been consulted to assist with inpatient glycemic management. Patient is a type 2 diabetic that is well known to our glycemic service. Will utilize previous admission data to guide dosing. * Upon admission, BSG was 226 mg/dL. Patient did not receive any insulin today. He did receive 125 mg of IV Methylprednisolone around 0900. He is NPO for the time being. * BSG was 279 mg/dL at 1800. Gave 20 units of Lantus (initially wanted 40 units but patient refused) and started Novolog based on previous admission data. Will add an overnight check. PLAN FOR INPATIENT GLYCEMIC CONTROL: * Basal insulin * Lantus 20 units SC x 1 * Bolus insulin * NovoLog per scale ACHS or Q6hrs while NPO * Goal Range: Low 110 mg/dL - High 140 mg/dL * Correction Factor: 12 mg/dL/unit * Nutritional / Prandial insulin per carb ratio of 1 unit per 4 grams CHO consumed PLAN FOR DISCHARGE: * To be determined
[2021-02-11] MEDS: TOPIRAMATE 100 MG TAB PO SCH (20:42)
[2021-02-11] MEDS: levETIRAcetam 500 MG TAB PO SCH (20:43)
[2021-02-11] MEDS: GABAPENTIN 300 MG CAP PO SCH (20:44)
[2021-02-11] MEDS: ATORVASTATIN 40 MG TAB PO SCH (20:44)
[2021-02-11] MEDS ORDERED: ACETAMINOPHEN 1,000 MG/100 ML VIAL IV PRN (20:49)
[2021-02-11] MEDS ORDERED: CHOLECALCIFEROL 1,000 UNITS 25 MCG TAB PO SCH (21:00)
[2021-02-11] MEDS ORDERED: SODIUM CHLORIDE 0.9% 1000ML 1,000 ML IV SCH (21:00)
[2021-02-11 23:02] LABS: Partial Thromboplastin Ratio 2.9
[2021-02-11 23:08] LABS: Partial Thromboplastin Time 76.5 Seconds (21.0-31.0)
[2021-02-12] MEDS: INSULIN ASPART 100 UNITS/ML 3 ML PEN SC SCH ×5 (00:55→21:06)
[2021-02-12] MEDS ORDERED: INSULIN ASPART 100 UNITS/ML 3 ML PEN SC SCH (03:00)
[2021-02-12] MEDS: ACETAMINOPHEN 325 MG TAB PO PRN ×3 (04:48→21:11)
[2021-02-12] MEDS ORDERED: Nursing to Pharmacy Communication SCH (05:00)
[2021-02-12 05:35] LABS: Basophils # (auto) 0.01 K/uL (0-0.2); Basophils % (auto) 0.2 %; Eosinophils # (auto) 0.08 K/uL (0-0.5); Eosinophils % (auto) 1.7 %; Hematocrit (blood only) 30.7 % (42-52); Hemoglobin 9.5 g/dL (14.0-18.0); Immature Granulocytes # (auto) 0.04 K/uL (0.00-0.02); Immature Granulocytes % (auto) 0.8 %; Lymphocytes # (auto) 0.86 K/uL (1.2-3.4); Lymphocytes % (auto) 18.1 %; Mean Corpuscular Hemoglobin 25.7 pg (25-34); Mean Corpuscular Hgb Conc 30.9 g/dL (32-36); Mean Corpuscular Volume 83.2 fL (80-100); Mean Platelet Volume 8.7 fL (7.4-10.4); Monocytes # (auto) 0.37 K/uL (0.11-0.59); Monocytes % (auto) 7.8 %; Neutrophils % (auto) 71.4 %; Platelet Count 156 K/uL (130-400); RDW Coefficient of Variation 16.9 % (11.5-14.5); RDW Standard Deviation 51.3 fL (36.4-46.3); Red Blood Count 3.69 M/uL (4.7-6.1); White Blood Count 4.76 K/uL (4.8-10.8)
[2021-02-12 05:43] LABS: INR 1.7 (0.9-1.1); Prothrombin Time 16.5 Seconds (9.0-12.0)
[2021-02-12 05:55] LABS: Partial Thromboplastin Ratio 5.1
[2021-02-12 06:07] LABS: BUN Creatinine Ratio 18.4 (10-20); Calcium 8.4 mg/dl (8.5-10.1); Creatinine Clr Calc Pharmacy 63.7 ml/min; Est GFR (African American) 64.9 ml/min; Potassium 3.6 mmol/L (3.5-5.1)
[2021-02-12 06:11] LABS: Partial Thromboplastin Time 133.5 Seconds (21.0-31.0)
[2021-02-12 07:48] LABS: Estimated Average Glucose 183 mg/dl
[2021-02-12] MEDS: levETIRAcetam 500 MG TAB PO SCH ×2 (08:05→20:02)
[2021-02-12] MEDS: TOPIRAMATE 100 MG TAB PO SCH ×2 (08:09→20:03)
[2021-02-12] MEDS: FEXOFENADINE HCL 180 MG TAB PO SCH (08:09)
[2021-02-12] MEDS: GABAPENTIN 300 MG CAP PO SCH ×2 (08:10→20:03)
[2021-02-12] MEDS: ASPIRIN 81 MG ECTAB PO SCH (08:10)
[2021-02-12] MEDS: SENNA 8.6 MG TAB PO SCH (08:10)
[2021-02-12] MEDS: PENICILLIN V POTASSIUM 500 MG TAB PO SCH ×4 (08:10→20:01)
[2021-02-12] MEDS: predniSONE 5 MG TAB PO SCH (08:10)
[2021-02-12] MEDS: FLUTICASONE FUROATE 100MCG 14 PUFFS/INHALER INH SCH (08:11)
[2021-02-12] MEDS: UMECLIDINIUM/VILANTEROL 62.5/25MCG 7 PUFFS/INHALER INH SCH (08:11)
[2021-02-12] MEDS: CARBIDOPA/LEVODOPA 25/100MG TAB PO SCH ×3 (08:11→20:03)
[2021-02-12] MEDS ORDERED: NON-FORMULARY MEDICATION (Fluticasone-Umeclidin-Vilanter [Trelegy Ellipta] 100-62.5-25 mcg INH SCH (09:00)
[2021-02-12] MEDS ORDERED: INSULIN GLARGINE SOLOSTAR 100 UNITS/ML 3 ML PEN SC ONE (09:00)
--- NOTE | 2021-02-12 09:38 | Neurology Consultation ---
Date of Consultation February 12, 2021 Assessment & Plan (1) Right sided weakness: (2) Seizure-like activity: (3) Parkinsonism: (4) Diabetic peripheral neuropathy: (5) Migraine: the patient had acute right leg greater than arm weakness ( not the face) without speech, mentation, or sensory changes. Interestingly, he has no upper motor neuron signs on exam but the presence of a significant polyneuropathy could mask upper motor neuron signs. With the MRI of the brain showing no acute stroke, leg greater than arm (and no face) weakness, as well as cervical spine pain and history of previous spinal surgery, I cannot exclude a cervical spine origin to his weakness. Patient also has lumbar spine issues and could be affecting his right leg as well. The patient has parkinsonism improved with low-dose carbidopa/levodopa. He does have some rigidity in the legs greater than the arms. The patient has a history of seizure like activity controlled on current medication. He is going to be followed at [facility] with inpatient epilepsy monitoring as pseudoseizures are suspected. Patient has a history of migraine headaches which are improved and stable. Recommendations: 1. MRI of the cervical spine and lumbar spine with and without contrast. 2. hold on neurologic medication changes for now and continue 81 mg aspirin tablet and Coumadin daily. 3. Continue physical and occupational therapy. overall, I spent a total of 60 minutes with this case including review of records, review of MRI films, direct evaluation the patient at bedside, and discussion of the case with the patient and RN at bedside, and Dr. Navas, including differential diagnosis and treatment options. History of Present Illness Reason for Consultation: patient is a 75-year-old, who I was asked to see the request of Dr. Goldsmith, for neurologic consultation regarding stroke Requesting Physician: Dr. Goldsmith Attending Physician: Jose R Navas, DO History of Present Illness This patient has a complicated medical history. He is post mechanical aortic v alve replacement and a history of paroxysmal atrial fibrillation. He has a history of dyslipidemia and diabetes as well as interstitial lung disease. Starting age 20 he had migraine headaches and these have been intermittent since. He has been doing much better over the last two years with his headaches. He has a history of cervical spine surgery. Patient has been seeing Dr. Sheikh for syncopal and seizure episodes. 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 He is scheduled to get more extensive inpatient monitoring in the near future at [facility], to determine seizures versus pseudoseizures. Currently he is on topiramate 100 milligrams twice daily ( which also helps prevent headaches), levetiracetam 1000 milligrams twice a day, and gabapentin 300 milligrams twice a day (which also helps chronic pain). in April,, the patient had syncope and probable mild concussion. He saw Dr. Sheikh in the hospital. By June of 2020 Dr. Sheikh felt that he had early Parkinson's disease with a mild resting tremor and some rigidity in the right arm and leg. On July 02 he was initiated on carbidopa / levodopa, 25/100, 1/2 tablet 3 times daily. Patient believes this resolved his tremor and make movements in the right arm and leg better. currently he is on 1 tablet 3 times a day. Patient has a history of significant lumbar spinal stenosis with neurogenic claudication and bilateral lower extremity symptoms. He underwent a decompression laminectomy surgery with fusion and cage by Dr. Agarwal on July 20, 2020 from L3 through S1. Apparently his left lower extremity was remarkably improved. His right lower extremity was improved also but he has some pain in his back and right leg. He is getting intensive therapy. He spent 30 days in the hospital because of some weakness and aspiration pneumonia complications, being discharged on August 12. He then spent 10 days in the rehab hospital locally. I saw the patient in August of 2020 for acute left-sided muscle weakness consistent with a TIA. MRI of the brain showed no stroke. He was initiated on 81 mg aspirin tablet daily. He was continuing his Coumadin for the cardiac issues. The patient saw Dr. Sheikh in November of 2020 Hem lower the gabapentin to the current dose. He was stable otherwise from a neurologic standpoint. Patient went to bed February 10 feeling well. Around 0300 on February 11 he woke to urinate and noted right-sided weakness. It was more his leg and walking that it was his arm. He arrived at the emergency room on February 11 at 0739 with a temperature 36.2, pulse of 83 and regular, respiratory rate 20, blood pressure 115/66, and O2 saturation 96%. He had decreased pediatric nephrologist strength on the right and the right side was weak. CBC showed anemia and creatinine was 1.53. Glucose was 233. chest x-ray showed cardiomegaly and some atelectasis. CT scan of the head showed no acute changes. CT angiography of the head and neck were unremarkable without any vascular stenoses or anomalies. MRI of the brain showed no new stroke but showed atrophy and mild old ischemic disease as before. I reviewed these films. This morning the patient feels the same with his right leg weakness. He does not think he has much in the way of right upper extremity weakness. He is not dizzy or lightheaded and has no new numbness. His speech and mentation are unchanged as well. Blood pressure is 112/67. Glucose is 129 and he is still anemic. Hemoglobin A1c is 8.0, triglycerides 96, and total cholesterol 140. He has been in normal sinus rhythm Allergies Allergy/AdvReac Type Severity Reaction Status Date / Time Iodinated Contrast Media Allergy Severe Anaphylaxis Verified 02/11/21 09:47 shellfish derived Allergy Severe Anaphylaxis Verified 02/11/21 09:47 tamsulosin [From Flomax] Allergy Intermediate Itching Unverified 02/11/21 09:47 Tetanus Vaccines and Toxoid Allergy Unknown Unknown Verified 02/11/21 09:47 Home Medications Medication Instructions Recorded Confirmed Type albuterol sulfate 90 mcg/actuation 2 puff INHALATION Q4H PRN 01/20/20 02/11/21 History aerosol inhaler (Ventolin HFA) cholecalciferol (vitamin D3) 50 2,000 unit PO HS 01/20/20 02/11/21 History mcg (2,000 unit) capsule (Vitamin D3) nitroglycerin 0.4 mg sublingual 0.4 mg SUBLINGUAL DIRECTED PRN 01/20/20 02/11/21 History tablet atorvastatin 40 mg tablet 40 mg PO HS 05/28/20 02/11/21 History insulin aspart U-100 100 unit/mL 0 unit SUBCUT ACHS 09/04/20 02/11/21 History (3 mL) subcutaneous pen (Novolog Flexpen U-100 Insulin aspart) aspirin 81 mg tablet,delayed 81 mg PO QAM 10/09/20 02/11/21 History release (Adult Low Dose Aspirin) ondansetron 4 mg disintegrating 4 mg PO Q6H PRN #14 tab 10/09/20 02/11/21 Rx tablet sennosides 8.6 mg tablet (Senokot) 17.2 mg PO QAM 10/19/20 02/11/21 History gabapentin 300 mg capsule 300 mg PO BID #180 cap 12/28/20 02/11/21 Rx insulin NPH isoph U-100 human 100 See Rx Instructions .ROUTE 01/12/21 02/11/21 Rx unit/mL subcutaneous suspension .COMPLEX #10 ml (Novolin N NPH U-100 Insulin isophane) insulin glargine 100 unit/mL (3 20 unit SUBCUT BID #0 ml 01/12/21 02/11/21 Rx mL) subcutaneous pen (Lantus Solostar U-100 Insulin) sulfamethoxazole 800 1 tab PO MoWeFr #12 tab 01/12/21 02/11/21 Rx mg-trimethoprim 160 mg tablet (Bactrim DS) carbidopa 25 mg-levodopa 100 mg 1 tab PO TID #90 tab 01/31/21 02/11/21 Rx tablet calcium carbonate 600 mg calcium 600 mg PO HS 02/11/21 02/11/21 History (1,500 mg) tablet (Calcium) fexofenadine 180 mg tablet 180 mg PO QAM 02/11/21 02/11/21 History (Karlee Allergy) fluticasone fur. 100 mcg-umeclid 1 inh INHALATION QAM 02/11/21 02/11/21 History 62.5 mcg-vilant 25 mcg inhalat.powder (Trelegy Ellipta) lactobacillus combination no.4 3 3,000 mmu cells PO QAM 02/11/21 02/11/21 History billion cell capsule (Probiotic) levetiracetam 1,000 mg tablet 1,000 mg PO BID 02/11/21 02/11/21 History (Keppra) nystatin 100,000 unit/mL oral 5 ml MUCOUS MEMBRANE UD 02/11/21 02/11/21 History suspension penicillin V potassium 500 mg 500 mg PO QID 02/11/21 02/11/21 History tablet potassium chloride 10 mEq 10 meq PO QAM 02/11/21 02/11/21 History tablet,extended release (K-Tab) prednisone 5 mg tablet 5 mg PO QAM 02/11/21 02/11/21 History topiramate 100 mg tablet (Topamax) 100 mg PO BID 02/11/21 02/11/21 History warfarin 10 mg tablet (Jantoven) 10 mg PO HS 02/11/21 02/11/21 History Patient History Medical History Abnormal CT scan, chest Abnormal CT scan, chest Acute hyperglycemia Acute left-sided muscle weakness CAD (coronary artery disease) Chest pain Chronic pulmonary aspiration Dehydration Diabetes Fall HLD (hyperlipidemia) Hypoxia Interstitial lung disease Interstitial lung disease Interstitial lung disease due to connective tissue disease Lung nodule Neurogenic claudication Nocturnal hypoxia Palliative care encounter Polymyositis Polymyositis Polymyositis Prostate cancer s/p XRT Rheumatoid arthritis Rheumatoid arthritis Seizure-like activity Shortness of breath Stroke-like symptom 12/2019, w/ blurry vision and dysarthria. mild R sided wkness. attending outpatient physical therapy w/ good improvement in strength (5+/5 strength of all 4 extremities as of 05/28/20) Supratherapeutic INR Thoracic ascending aortic aneurysm s/p repair Weakness Surgical History H/O hernia repair History of aortic valve replacement mechanical History of cholecystectomy History of fusion of cervical spine History of gastric bypass lap band History of heart artery stent History of lung biopsy 2019 History of partial nephrectomy Family History Mother , age 87 of pulmonary issues Rheumatoid arthritis Father , in his mid 80s of a stroke Stroke Other Coronary heart disease Social History Smoking Status: Never smoker Second Hand Exposure: No; Hx Alcohol Use: No Hx Substance Use: No Preferred Language: Azerbaijani Communication Ability: Effective Hearing Ability: Hard of Hearing 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 Required: No Beliefs That Will Affect Care: None marital status: / Current Living Situation: Alone Current Living Situation Comment: spends nights with son, has [employer] week from 12-29 current occupational status: retired 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 Feels Safe at Home: Yes Assistive Devices: Oxygen - at Night and Walker Review of Systems Constitutional: no fever, no fatigue and no weakness Eyes: no diplopia, no eye pain and no worsening vision Ear, Nose, Mouth, Throat: no ear pain, no tinnitus, no hearing loss, no dizziness, no snoring, no hoarseness and no dysphagia Respiratory: no cough and no dyspnea Cardiovascular: no chest pain, no palpitations and no lightheadedness Gastrointestinal: no abdominal pain, no nausea and no vomiting Musculoskeletal: + back pain and + neck pain ( he has neck pain which radiates into the left shoulder); no radicular pain, no joint pain and no myalgia Integumentary: no rash and no lesions Neurologic: + gait abnormality, + localized weakness and + numbness; no generalized weakness, no tingling, no tremor(s), no abnormal movements, no headache(s), no abnormal speech, no confusion and no memory loss Psychiatric: no depression, no irritability, no anxiety, no difficulty concentrating, no confusion and no hallucinations Endocrine: no fatigue and no flushing Hematologic / Lymphatic: no easy bleeding and no easy bruising Allergy / Immunological: no urticaria and no problem reported Exam (Neuro) Physical Exam: The patient is right-handed. The patient is awake, alert, and attentive. Speech is normal without any aphasia or dysarthria. The patient can name objects, repeat phrases, and has normal spontaneous speech. Mentation and thought processes are intact, with orientation to person, place and time, and normal fund of knowledge. Attention and concentration are normal. Mood and affect are normal and appropriate. General appearance and grooming are normal. Short and long-term memory are intact. Pupils are 3 mm bilaterally and reactive to light. Extraocular eye muscles are intact without nystagmus. Visual acuity and visual richmond seem normal grossly to confrontation. There are no deficits to sensation in the face in all 3 distributions of the fifth cranial nerve bilaterally. Corneal reflexes are positive bilaterally. Facial strength and symmetry was normal bilaterally. Hearing seems normal bilaterally. Palate moves well without asymmetry. There is normal sternocleidomastoid and trapezius (shoulder shrug) strength bilaterally. Tongue is midline with good strength bilaterally. Neck has a full range of motion without discomfort. There are no cervical bruits bilaterally. There are no cranial or ocular bruits. Heart is without murmur. There is a regular rhythm and rate. Cervical, thoracic, and lumbar spine are nontender to palpation. Gait is narrow based and he limps favoring the right leg. he can only walk with a walker. Stance with feet together and eyes open or close his reasonable. Stance sitting on the bed is reasonable. With outstretched arms there is no drift. There are no resting, postural, or action tremors. There is no ataxia with finger to nose testing. There is good facility in the hands. No other abnormal involuntary movements are noted. Motor strength is 5/5 diffusely in the Left upper extremity including deltoids, biceps, triceps, brachioradialis, wrist flexors and extensors, pediatric nephrologist, and intrinsic hand muscles. right upper extremity has 4+/ 5 strength diffusely. Motor strength is 5/5 diffusely in the Left lower extremity including hip flexors, quadriceps, hamstrings, gastrocnemius, tibialis anterior, tibialis posterior, and Peroneii muscles. the right lower extremity is 4/5 diffusely. There is no cogwheel rigidity in the upper extremities. There is mild rigidity in the legs. Sensory examination Reveals some stocking decreased pin and touch bilaterally. Reflexes are 1/4 in the biceps, triceps, and brachioradialis tendons bilaterally. Quadriceps and Achilles tendon reflexes are absent bilaterally. There is no clonus bilaterally. Toes are Neutral to downgoing with plantar stimulation bilaterally. Peripheral pulses are present and of normal quality distally in all 4 limbs. There is no peripheral edema noted in the limbs. Results & Data ([facility]) Vital Signs (Past 12 Hours) Vital Signs Temp Pulse Pulse Resp BP Pulse Ox 02/12/21 07:55 36.5 C 75 20 112/67 99 02/12/21 03:20 36.4 C L 65 20 105/66 97 02/12/21 01:01 125/71 02/11/21 23:43 36.6 C 70 24 97/59 L 99 02/11/21 22:32 80 PG Care Time/CCT Total # of Minutes Spent Total Time Spent with Patient: Total time spent is greater than 50% in coordination of care (as documented) at patient's floor/unit and/or counseling patient: Coding Level of Care Code 08648 Office/Outpt Visit, Est Diagnoses Right sided weakness R53.1 Seizure-like activity R56.9 Diabetic peripheral neuropathy E11.42 Migraine G43.909 Migraine type: unspecified Status migrainosus presence: without status migrainosus Intractability: not intractable Parkinsonism G20 Parkinsonism type: unspecified Time Spent (min) 60 (1) Migraine Migraine type: unspecified Status migrainosus presence: without status migrainosus Intractability: not intractable Qualified Code(s): G43.909 - Migraine, unspecified, not intractable, without status migrainosus (2) Parkinsonism Parkinsonism type: unspecified Qualified Code(s): G20 - Parkinson's disease
--- NOTE | 2021-02-12 11:44 | Pharmacy Report ---
Pharmacy Glycemic Short Note 2 - Date of Service February 12, 2021 - Glycemic Short BSG Results (Last 24 hours): 02/11/21 02/11/21 02/12/21 17:48 20:30 00:16 Glucose POC Glucose 279 H 270 H 162 H 02/12/21 02/12/21 02/12/21 03:12 05:25 07:20 Glucose 122 H POC Glucose 130 H 129 H 02/12/21 11:06 Glucose POC Glucose 186 H OUTPATIENT ANTIDIABETIC REGIMEN: * Lantus 20 units SC BID * NPH SC 1 unit for every 1 mg of Prednisone (i.e. 40 units for 40 mg) * Novolog SSI SC ACHS (max of 20 units per dose) * HbA1c = 8.5% (01/11/21) ASSESSMENT: 02/12/21 * Patient's BSGs yesterday were 226-279-270 and overnight were 162-130 mg/dL. * Patient received 34 units of insulin (20 units of basal and 14 units of bolus). * Fasting BSG today was 129 mg/dL. * When inpatient, patient typically requires around 50-60 units/day of Lantus; however, this is when patient is on higher doses of steroids (such as 40 mg of prednisone). Patient received half of home dose and fasting BSG within range. Start Lantus 10 units BID (if BSG > 160 mg/dL then 15 units) * Continue aggressive Novolog due to hyperglycemia with steroids. BACKGROUND * 75 yo M admitted today secondary to stroke-like symptoms. Pharmacy has been consulted to assist with inpatient glycemic management. Patient is a type 2 diabetic that is well known to our glycemic service. Will utilize previous admission data to guide dosing. * Upon admission, BSG was 226 mg/dL. Patient did not receive any insulin today. He did receive 125 mg of IV Methylprednisolone around 0900. He is NPO for the time being. * BSG was 279 mg/dL at 1800. Gave 20 units of Lantus (initially wanted 40 units but patient refused) and started Novolog based on previous admission data. Will add an overnight check. PLAN FOR INPATIENT GLYCEMIC CONTROL: * Basal insulin * Lantus 10 units SC BID (15 units if BSG > 160 mg/dL) * Bolus insulin * NovoLog per scale ACHS or Q6hrs while NPO * Goal Range: Low 110 mg/dL - High 140 mg/dL * Correction Factor: 18 mg/dL/unit * Nutritional / Prandial insulin per carb ratio of 1 unit per 4 grams CHO consumed PLAN FOR DISCHARGE: * Patient's HbA1C is improving and is at goal for his age and comorbidities. Continue to work with outpatient provider to optimize glycemic regimen.
[2021-02-12] MEDS ORDERED: GADOBUTROL 65ML VIAL IV ONE (14:26)
--- NOTE | 2021-02-12 14:51 | Magnetic Resonance Report ---
CERVICAL SPINE MRI WITH AND WITHOUT CONTRAST HISTORY: r arm weakness TECHNIQUE: Multiplanar multisequence MRI of the cervical spine was performed both before and after th e use of intravenous contrast. COMPARISON STUDY: Cervical spine CT 01/09/2021. FINDINGS: No fracture or subluxation within the cervical spine. The cervical spinal cord is normal in course, caliber, and signal intensity. The visualized posterior fossa is unremarkable. Prevertebral soft tissues and the C1-C2 interval are intact. There is mild disc space narrowing at C3-C4, C5-C6, a nd C6-C7. Prior anterior cervical discectomy and fusion at C4-C5. Postcontrast sequences show no area s of abnormal enhancement. C2-C3: No significant central canal or neural foraminal narrowing. C3-C4: Broad-based posterior disc osteophyte complex with small bilateral paracentral focal disc prot rusions, left greater the right. The left paracentral focal disc protrusion measures 4 mm. There is m ild central canal narrowing and severe left-sided neural foraminal narrowing. The small left-sided di sc protrusion appears to abut the exiting left nerve root at this level. C4-C5: No significant central canal narrowing. There is a left paracentral posterior osteophyte which appears to abut the exiting left L4 nerve root at this level and results in severe left-sided neural foraminal narrowing. No significant right-sided neural foraminal narrowing. C5-C6: No significant central canal or right-sided neural foraminal narrowing. There is severe left-s ided neural foraminal narrowing due to the uncovertebral and facet hypertrophy. C6-C7: No significant central canal or neural foraminal narrowing. C7-T1: No significant central canal or neural foraminal narrowing. IMPRESSION: 1. No fracture or subluxation within the cervical spine. 2. C4-C5 anterior cervical discectomy and fusion. 3. A small left paracentral focal disc protrusion at C3-C4 and a left paracentral posterior osteophyt e at C4-C5. These abut the exiting nerve roots at these levels and results in severe left-sided neura l foraminal narrowing. 4. Additional degenerative changes as described above. ACT 112: Negative or not required by law. Electronically signed by: Jc Che M.D. 02/12/2021 2:49 PM
--- NOTE | 2021-02-12 15:16 | Magnetic Resonance Report ---
LUMBAR SPINE MRI WITH AND WITHOUT CONTRAST HISTORY: Right leg weakness. TECHNIQUE: Multiplanar multisequence MRI of the lumbar spine was performed both before and after the intravenous administration of contrast. COMPARISON: CT lumbar spine 11/11/2020. Lumbar spine MRI 05/30/2020. FINDINGS: For the purpose of the report the L5-S1 disc space will be located on axial image 27 of 30. No fracture or subluxation. The conus terminates at the L1 level. The visualized sacrum is intact. Pa ravertebral soft tissues are unremarkable. Subcutaneous and soft tissue edema posterior to the ev ctomy site which favors SPECT the postoperative change. The patient is status post L3-S1 posterior de compression and fusion with pedicle screws and rods. There is also a disc spacer at L5-S1. Mild soft tissue enhancement at the laminectomy sites is expected for the postoperative change. No epidural or paraspinal masses or fluid collections identified. L1-L2: No significant central canal or neural foraminal narrowing. L2-L3: No significant central canal or neural foraminal narrowing. L3-L4: No significant central canal narrowing due to the posterior decompression. There is a small br oad-based posterior disc bulge asymmetric to the left. No significant right-sided neural foraminal na rrowing. There is severe left-sided neural foraminal narrowing, unchanged. L4-L5: Small broad-based posterior disc bulge asymmetric to the right without significant central can al narrowing due to the posterior decompression. There is moderate right neural foraminal narrowing. No significant left-sided neural foraminal narrowing. L5-S1: Small broad-based posterior disc bulge without significant central canal narrowing due to the posterior decompression. There is severe bilateral neural foraminal narrowing, unchanged. IMPRESSION: 1. No fracture or subluxation within the lumbar spine. 2. Posterior decompression and fusion from L3 through S1 with pedicle screws and rods. 3. No significant central canal narrowing. 4. Bilateral neural foraminal narrowing as described above. This is similar to the prior study. ACT 112: Negative or not required by law. Electronically signed by: Jc Che M.D. 02/12/2021 3:15 PM
[2021-02-12 16:06] LABS: Partial Thromboplastin Time 53.7 Seconds (21.0-31.0)
--- NOTE | 2021-02-12 16:46 | Hospitalist Progress Note ---
Date of Service February 12, 2021 Assessment & Plan (1) Right sided weakness: Plan: Initial concern was stroke given that he was off anticoagulation for his dental procedurebut MRI is negative, and after further review it really does not seem like he had facial symptoms, and the leg seems to be the worst with the arm being questionablemaking stroke exceedingly unlikely. High suspicion of spinal disease and nerve root impingementcheck C-spine and L-spine MRI. PT OT eval and treat. Is a late addendumdisc disease and nerve impingement was notedalthough in the C-spine it was really worse on the left with the symptoms on the right, L-spine could be enough to account for his symptoms. However, given his uncontrolled diabetes with an A1c of 8, I would like to see how he progresses with time, symptom control, and therapy before initiating corticosteroids, and spiking his sugar worse. (2) Subtherapeutic anticoagulation: Plan: Coumadinfor now heparin bridge. Stop once INR is greater than 2 (3) History of aortic valve replacement: Plan: Mechanical. Heparin/bridged to Coumadin anticoagulation (4) Diabetes: Plan: A1c 8. Pharmacy glycemic consult. Can use corticosteroids for nerve impingement weakness if we need to, but given that there is no emergency to doing so, I would like to see if he shows improvement over a day or so before initiating (5) Interstitial lung disease: Plan: Breathing at baseline. (6) Polymyositis: Plan: CPK recently negative. Symptoms to focal and more weakness without paindoubt this plays a role in his current presentation (7) Rheumatoid arthritis: Plan: Continue chronic prednisone 5mg PO daily (8) PAF (paroxysmal atrial fibrillation): Plan: Currently in NSR. Anticoagulation as above. (9) Parkinsonism: Plan: Continue Sinemet (10) Somatic dysfunction of cervical region: Plan: OMT as above Plan: PT/OT eval and treat, otherwise as above Admission and Anticipated Discharge Date Admission Date: February 11, 2021 Subjective Ongoing right leg weakness. Does not really notice much right arm weakness now, may be earlier. Recalls never having had face symptoms. Had a rather extensive dental procedure done not too long prior to symptom onset. And then he first [place] noting that he just at first felt like he was tripping on the floor, until later he noticed that his leg was just not really lifting well. He also has had a headache up and around the side of his head. Case discussed with neurology in detail. Review of Systems Review of Systems: All systems reviewed & are unremarkable except as noted in HPI & below Physical Exam Physical Exam: In general he is awake alert oriented, pleasant no distress. HEENT normocephalic atraumatic mucous membranes moist. Breathing unlabored no accessory muscle use good effort. Skin shows no rashes no pallor or icterus. Neuro shows cranial nerves II through XII to be grossly intact, motor is more or less equal and intact bilateral upper extremities when I examined him, may be subjectively slightly weaker right arm. Legs are markedly asymmetric with his right leg being much weaker than his left. Osteopathic/musculoskeletalleft greater than right suboccipitals high tone, tender, decreased range of motioninhibitory pressureimproved Results & Data Results & Data ([facility]) Vital Signs (Past 12 Hours) Vital Signs Temp Pulse Pulse Resp BP Pulse Ox 02/12/21 13:29 96 02/12/21 11:53 98.2 F 88 16 107/67 99 02/12/21 08:00 55 L 02/12/21 07:55 97.7 F 75 20 112/67 99 02/12/21 06:00 98.6 F 79 20 115/63 96 PG Care Time/CCT Total # of Minutes Spent Total Time Spent with Patient: Total time spent is greater than 50% in coordination of care (as documented) at patient's floor/unit and/or counseling patient: Coding Level of Care Code 28413 Subseq Obs Care Lvl 3 Diagnoses Right sided weakness R53.1 Subtherapeutic anticoagulation Z51.81; Z79.01 History of aortic valve replacement Z95.2 Diabetes E11.42; Z79.4 Diabetes mellitus type: type 2 Diabetes mellitus terminal supervisor insulin use: with terminal supervisor use Diabetes mellitus complication status: with neurologic complications Diabetes mellitus complication detail: with polyneuropathy Interstitial lung disease J84.9 Polymyositis M33.20 Rheumatoid arthritis M06.9 Rheumatoid arthritis location: unspecified site Rheumatoid factor presence: unspecified presence PAF (paroxysmal atrial fibrillation) I48.0 Parkinsonism G20 Parkinsonism type: unspecified Somatic dysfunction of cervical region M99.01 (1) Diabetes Diabetes mellitus type: type 2 Diabetes mellitus group home insulin use: with group home use Diabetes mellitus complication status: with neurologic complications Diabetes mellitus complication detail: with polyneuropathy Qualified Code(s): E11.42 - Type 2 diabetes mellitus with diabetic polyneuropathy; 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
[2021-02-12] MEDS: WARFARIN SOD 10 MG TAB PO SCH (17:37)
[2021-02-12] MEDS: ATORVASTATIN 40 MG TAB PO SCH (20:04)
[2021-02-12] MEDS: CHOLECALCIFEROL 400 UNITS 10 MCG TAB PO SCH (20:04)
[2021-02-12] MEDS ORDERED: INSULIN GLARGINE SOLOSTAR 100 UNITS/ML 3 ML PEN SC SCH (21:00)
[2021-02-12] MEDS: HEPARIN SODIUM/DEXTROSE 25,000 UNITS/500 ML BAG IV SCH (21:36)
[2021-02-13] MEDS: ACETAMINOPHEN 325 MG TAB PO PRN ×3 (05:16→20:19)
[2021-02-13 07:06] LABS: BUN Creatinine Ratio 20.5 (10-20); Calcium 8.5 mg/dl (8.5-10.1); Creatinine Clr Calc Pharmacy 78.2 ml/min; Est GFR (Non-African American) 69.9 ml/min; Potassium 3.3 mmol/L (3.5-5.1)
[2021-02-13 07:12] LABS: INR 1.9 (0.9-1.1); Partial Thromboplastin Ratio 1.9; Prothrombin Time 18.5 Seconds (9.0-12.0)
[2021-02-13 07:29] LABS: Partial Thromboplastin Time 49.9 Seconds (21.0-31.0)
[2021-02-13] MEDS: HEPARIN SODIUM/DEXTROSE 25,000 UNITS/500 ML BAG IV SCH (07:30)
[2021-02-13] MEDS ORDERED: POTASSIUM CHLORIDE CRTAB 20 MEQ TABCR PO STA (08:22)
[2021-02-13] MEDS: INSULIN ASPART 100 UNITS/ML 3 ML PEN SC SCH ×4 (08:45→20:22)
[2021-02-13] MEDS: TOPIRAMATE 100 MG TAB PO SCH ×2 (08:46→20:20)
[2021-02-13] MEDS: CARBIDOPA/LEVODOPA 25/100MG TAB PO SCH ×3 (08:46→20:20)
[2021-02-13] MEDS: FEXOFENADINE HCL 180 MG TAB PO SCH (08:46)
[2021-02-13] MEDS: predniSONE 5 MG TAB PO SCH (08:46)
[2021-02-13] MEDS: GABAPENTIN 300 MG CAP PO SCH ×2 (08:46→20:20)
[2021-02-13] MEDS: SENNA 8.6 MG TAB PO SCH (08:46)
[2021-02-13] MEDS: FLUTICASONE FUROATE 100MCG 14 PUFFS/INHALER INH SCH (08:47)
[2021-02-13] MEDS: PENICILLIN V POTASSIUM 500 MG TAB PO SCH ×4 (08:47→20:20)
[2021-02-13] MEDS: ASPIRIN 81 MG ECTAB PO SCH (08:47)
[2021-02-13] MEDS: levETIRAcetam 500 MG TAB PO SCH ×2 (08:47→20:20)
[2021-02-13] MEDS: UMECLIDINIUM/VILANTEROL 62.5/25MCG 7 PUFFS/INHALER INH SCH (08:48)
[2021-02-13] MEDS: INSULIN GLARGINE SOLOSTAR 100 UNITS/ML 3 ML PEN SC SCH ×2 (08:49→20:21)
--- NOTE | 2021-02-13 10:20 | Neurology Progress Note ---
Date of Service February 13, 2021 Assessment & Plan (1) Right sided weakness: (2) Seizure-like activity: (3) Parkinsonism: (4) Diabetic peripheral neuropathy: (5) Migraine: Plan: the patient had acute right leg greater than arm weakness ( not the face) without speech, mentation, or sensory changes. Interestingly, he has no upper motor neuron signs on exam but the presence of a significant polyneuropathy could mask upper motor neuron signs. With the MRI of the brain showing no acute stroke, leg greater than arm (and no face) weakness, as well as cervical spine pain and history of previous spinal surgery, I cannot exclude a cervical spine origin to his weakness. Patient also has lumbar spine issues and could be affecting his right leg as well. MRI of the cervical spine did not show any cord impingement. The MRI of the lumbar spine showed degenerative changes and significant right neural foraminal narrowing. I wonder about peripheral nerve root impingement giving the leg weakness. His weakness on the right arm and leg see much better today than yesterday. The patient has parkinsonism improved with low-dose carbidopa/levodopa. He does have some rigidity in the legs greater than the arms. The patient has a history of seizure like activity controlled on current medication. He is going to be followed at [facility] with inpatient epilepsy monitoring as pseudoseizures are suspected. Patient has a history of migraine headaches which are improved and stable. Recommendations: 1. hold on neurologic medication changes for now and continue 81 mg aspirin tablet and Coumadin daily. 2. Continue physical and occupational therapy. 3. I have no further neurologic recommendations to make at this time. Please contact me if I can be of further assistance in this case and follow up with Dr. Sheikh as an outpatient. overall, I spent a total of 35 minutes with this case including review of records, review of MRI films, direct evaluation the patient at bedside, and discussion of the case with the patient bedside, and Dr. Navas, including differential diagnosis and treatment options. Admission and Anticipated Discharge Date Admission Date: February 11, 2021 Subjective Patient has been doing well with some improved strength on the right side compared to yesterday. Blood pressure is 124/85, potassium 3.3 and the rest of his Chem profile was largely unremarkable. MRI of the cervical spine showed a C3-4 disc bulge to the left with no cord impingement. There was other degenerative change and previous surgery changes. MRI of the lumbar spine on showed diffuse degenerative changes and the postop changes from his previous surgery. There was significant right-sided neural foraminal narrowing. I reviewed the films of the cervical and lumbar spine. Results & Data ([facility]) Vital Signs (Past 12 Hours) Vital Signs Temp Pulse Resp BP Pulse Ox 02/13/21 04:17 36.5 C 67 18 124/85 98 02/12/21 23:37 36.6 C 61 18 114/46 L 97 Exam (Neuro) Physical Exam: He is awake and alert. Speech is without aphasia or dysarthria. Mood seems normal affect seems appropriate. He is moving his right arm and leg much better than yesterday. PG Care Time/CCT Total # of Minutes Spent Total Time Spent with Patient: Total time spent is greater than 50% in coordination of care (as documented) at patient's floor/unit and/or counseling patient: Coding Level of Care Code 97553 Subseq Hosp Care Lvl 3 Diagnoses Right sided weakness R53.1 Seizure-like activity R56.9 Parkinsonism G20 Parkinsonism type: unspecified Diabetic peripheral neuropathy E11.42 Migraine G43.909 Migraine type: unspecified Status migrainosus presence: without status migrainosus Intractability: not intractable Time Spent (min) 35 (1) Parkinsonism Parkinsonism type: unspecified Qualified Code(s): G20 - Parkinson's disease (2) Migraine Migraine type: unspecified Status migrainosus presence: without status migrainosus Intractability: not intractable Qualified Code(s): G43.909 - Migraine, unspecified, not intractable, without status migrainosus
--- NOTE | 2021-02-13 10:46 | Pharmacy Report ---
Pharmacy Glycemic Short Note 2 - Date of Service February 13, 2021 - Glycemic Short BSG Results (Last 24 hours): 02/12/21 02/12/21 02/12/21 11:06 16:12 20:18 Glucose POC Glucose 186 H 152 H 190 H 02/13/21 02/13/21 06:08 07:29 Glucose 100 H POC Glucose 109 H OUTPATIENT ANTIDIABETIC REGIMEN: * Lantus 20 units SC BID * NPH SC 1 unit for every 1 mg of Prednisone (i.e. 40 units for 40 mg) * Novolog SSI SC ACHS (max of 20 units per dose) * HbA1c = 8.5% (01/11/21) ASSESSMENT: 02/13/21 * Patient's BSGs yesterday were [phone] MG/DL. * Patient received 74 units of insulin (25 units of basal and 49 units of bolus). * Fasting BSG today was 109 mg/dL. * Patient's fasting BSG is trending downwards (129 --> 109 mg/dL) so will reduce to Lantus 10 units BID * Tighten CR as patient's BSGs trended upwards after eating. 02/12/21 * Patient's BSGs yesterday were 226-279-270 and overnight were 162-130 mg/dL. * Patient received 34 units of insulin (20 units of basal and 14 units of bolus). * Fasting BSG today was 129 mg/dL. * When inpatient, patient typically requires around 50-60 units/day of Lantus; however, this is when patient is on higher doses of steroids (such as 40 mg of prednisone). Patient received half of home dose and fasting BSG within range. Start Lantus 10 units BID (if BSG > 160 mg/dL then 15 units) * Continue aggressive Novolog due to hyperglycemia with steroids. BACKGROUND * 75 yo M admitted today secondary to stroke-like symptoms. Pharmacy has been consulted to assist with inpatient glycemic management. Patient is a type 2 diabetic that is well known to our glycemic service. Will utilize previous admission data to guide dosing. * Upon admission, BSG was 226 mg/dL. Patient did not receive any insulin today. He did receive 125 mg of IV Methylprednisolone around 0900. He is NPO for the time being. * BSG was 279 mg/dL at 1800. Gave 20 units of Lantus (initially wanted 40 units but patient refused) and started Novolog based on previous admission data. Will add an overnight check. PLAN FOR INPATIENT GLYCEMIC CONTROL: * Basal insulin * Lantus 10 units SC BID * Bolus insulin * NovoLog per scale ACHS or Q6hrs while NPO * Goal Range: Low 110 mg/dL - High 140 mg/dL * Correction Factor: 18 mg/dL/unit * Nutritional / Prandial insulin per carb ratio of 1 unit per 3 grams CHO consumed PLAN FOR DISCHARGE: * Patient's HbA1C is improving and is at goal for his age and comorbidities. Continue to work with outpatient provider to optimize glycemic regimen.
[2021-02-13] MEDS: WARFARIN SOD 10 MG TAB PO SCH (16:58)
--- NOTE | 2021-02-13 19:18 | Hospitalist Progress Note ---
Date of Service February 13, 2021 Assessment & Plan (1) Right sided weakness: Plan: Initial concern was stroke given that he was off anticoagulation for his dental procedurebut MRI was negativeand in the end, right arm weakness was much more questionable as far as how much it fit with the clinical picture anyway and has resolved. Right leg weakness appears to have been lumbar radiculopathy/nerve impingement. Given that it is improving fairly quickly on its own, and his sugars are already a bit uncontrolled with an A1c of 8, we discussed that increased dosing of corticosteroids may help with the nerve impingement symptoms, but would definitely cause glycemic chaos, and to that end since he is showing improvement with this leg, we will continue with PT and time. Hopefully over the next day or so her for progress of being able to just go home. (2) Chronic back pain: Plan: Extensive discussion with patient that while the bone and disc disease was likely a big part of what started the pain, at this point, the pain is probably a combination of bone and disc disease, muscle and ligament pain, peripheral nervous system facilitation, and central nervous system facilitation. Both by the literature and my own experience, I have found that a significant portion of most people's pain in his situation is muscle and ligament drivenand often responds nicely to OMT. We discussed that it will likely take quite a while (using a muscle memory analogy), but it is highly likely he would get benefit. Given that his PCP is in the [facility] system, I recommended that he see one of our osteopathic physician residents for a trial of OMT over the next couple of months, and after may be 2 to 3 months of a therapeutic trial, hopefully we would either start to be able to space out treatments, or if he was not improving, then we could call it a failed trial. (3) Subtherapeutic anticoagulation: Plan: Coumadinfor now heparin bridge. Stop once INR is greater than 2, suspect this will be tomorrow (4) History of aortic valve replacement: Plan: Mechanical. Heparin/bridged to Coumadin anticoagulation (5) Diabetes: Plan: A1c 8. Pharmacy glycemic consult. Can use corticosteroids for nerve impingement weakness if we need to, but given that there is no emergency to doing so, see above, holding off (6) Interstitial lung disease: Plan: Breathing at baseline. (7) Polymyositis: Plan: CPK recently negative. Symptoms to focal and more weakness without paindoubt this plays a role in his current presentation (8) Rheumatoid arthritis: Plan: Continue chronic prednisone 5mg PO daily (9) PAF (paroxysmal atrial fibrillation): Plan: Currently in NSR. Anticoagulation with Coumadin, rate controlled (10) Parkinsonism: Plan: Continue Sinemet (11) Somatic dysfunction of cervical region: Plan: OMT done earlier in his hospital stay Plan: Ongoing PT/OT eval and treat. His weakness is improving, hopefully he will be able to go home in the next day or so, if not then we may need to look at rehab options. Admission and Anticipated Discharge Date Admission Date: February 11, 2021 Subjective Overall feeling a good bit better. Right arm is moving just fine, right leg moving much better, much easier. Wonders about chronic back painwe had an extensive discussion on thissee assessment and plan. Later asked to revisit due to mouth irritationhe thinks it is probably from all of his dental work. Review of Systems Review of Systems: All systems reviewed & are unremarkable except as noted in HPI & below Physical Exam Physical Exam: Vitals noted, in general he is awake and alert pleasant no distress. HEENT normocephalic atraumatic mucous membranes are moistno plaques in his mouth consistent with thrush, although tongue does look somewhat red and irritated. No overt lesions. Breathing unlabored no accessory muscle use good effort. Skin shows no rashes no pallor or icterus. Right arm moving basically normally, right leg moving much more freely and strongly than yesterday. See neuro notes for more detail. Results & Data Results & Data ([facility]) Vital Signs (Past 12 Hours) Vital Signs Temp Pulse Resp BP Pulse Ox 02/13/21 19:13 98.6 F 57 L 16 144/77 H 96 02/13/21 12:00 98.2 F 69 20 105/63 96 02/13/21 08:00 98.1 F 57 L 16 134/74 97 PG Care Time/CCT Total # of Minutes Spent Total Time Spent with Patient: Total time spent is greater than 50% in coordination of care (as documented) at patient's floor/unit and/or counseling patient: Coding Level of Care Code 03995 Subseq Obs Care Lvl 3 Diagnoses Right sided weakness R53.1 Subtherapeutic anticoagulation Z51.81; Z79.01 History of aortic valve replacement Z95.2 Diabetes E11.42; Z79.4 Diabetes mellitus type: type 2 Diabetes mellitus retirement insulin use: with retirement use Diabetes mellitus complication status: with neurologic complications Diabetes mellitus complication detail: with polyneuropathy Interstitial lung disease J84.9 Polymyositis M33.20 Rheumatoid arthritis M06.9 Rheumatoid arthritis location: unspecified site Rheumatoid factor presence: unspecified presence PAF (paroxysmal atrial fibrillation) I48.0 Parkinsonism G20 Parkinsonism type: unspecified Somatic dysfunction of cervical region M99.01 Chronic back pain M54.9; G89.29 (1) Diabetes Diabetes mellitus type: type 2 Diabetes mellitus retirement insulin use: with retirement use Diabetes mellitus complication status: with neurologic complica tions Diabetes mellitus complication detail: with polyneuropathy Qualified Code(s): E11.42 - Type 2 diabetes mellitus with diabetic polyneuropathy; 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
[2021-02-13] MEDS: CHOLECALCIFEROL 400 UNITS 10 MCG TAB PO SCH (20:20)
[2021-02-13] MEDS: ATORVASTATIN 40 MG TAB PO SCH (20:20)
[2021-02-14] MEDS: HEPARIN SODIUM/DEXTROSE 25,000 UNITS/500 ML BAG IV SCH (04:41)
[2021-02-14] MEDS: ACETAMINOPHEN 325 MG TAB PO PRN ×2 (04:43→14:26)
--- NOTE | 2021-02-14 06:53 | Hospitalist Progress Note ---
Date of Service February 14, 2021 Assessment & Plan (1) Right sided weakness: (2) Chronic back pain: (3) Subtherapeutic international normalized ratio (INR): (4) History of aortic valve replacement: (5) Diabetes: (6) Interstitial lung disease: (7) Polymyositis: (8) Rheumatoid arthritis: (9) PAF (paroxysmal atrial fibrillation): Admission and Anticipated Discharge Date Admission Date: February 11, 2021 Subjective Patient was seen at the bedside this morning. Physical Exam Constitutional: WD/WN, vitals as above Eyes: PERRL, conjunctivae normal, anicteric sclerae Results & Data Results & Data ([facility]) Vital Signs (Past 12 Hours) Vital Signs Temp Pulse Resp BP Pulse Ox 02/14/21 03:40 36.6 C 61 18 127/71 93 02/13/21 23:15 36.8 C 67 16 130/71 94 02/13/21 19:13 37 C 57 L 16 144/77 H 96 (1) Diabetes Diabetes mellitus type: type 2 Diabetes mellitus intermediate insulin use: with intermediate use Diabetes mellitus complication status: with neurologic complications Diabetes mellitus complication detail: with polyneuropathy Qualified Code(s): E11.42 - Type 2 diabetes mellitus with diabetic polyneuropathy; Z79.4 - detention (current) use of insulin (2) Rheumatoid arthritis Rheumatoid arthritis location: unspecified site Rheumatoid factor presence: unspecified presence Qualified Code(s): M06.9 - Rheumatoid arthritis, unspecified
[2021-02-14 08:37] LABS: INR 2.4 (0.9-1.1); Prothrombin Time 22.4 Seconds (9.0-12.0)
[2021-02-14 08:38] LABS: Partial Thromboplastin Time 52.8 Seconds (21.0-31.0)
[2021-02-14 08:44] LABS: BUN Creatinine Ratio 18.7 (10-20); Calcium 8.7 mg/dl (8.5-10.1); Creatinine Clr Calc Pharmacy 78.1 ml/min; Est GFR (Non-African American) 69.9 ml/min; Potassium 3.5 mmol/L (3.5-5.1)
[2021-02-14] MEDS: ASPIRIN 81 MG ECTAB PO SCH (08:47)
[2021-02-14] MEDS: predniSONE 5 MG TAB PO SCH (08:48)
[2021-02-14] MEDS: GABAPENTIN 300 MG CAP PO SCH (08:48)
[2021-02-14] MEDS: TOPIRAMATE 100 MG TAB PO SCH (08:48)
[2021-02-14] MEDS: levETIRAcetam 500 MG TAB PO SCH (08:48)
[2021-02-14] MEDS: INSULIN ASPART 100 UNITS/ML 3 ML PEN SC SCH ×3 (08:50→17:18)
[2021-02-14] MEDS: SENNA 8.6 MG TAB PO SCH (08:52)
[2021-02-14] MEDS: FEXOFENADINE HCL 180 MG TAB PO SCH (08:53)
[2021-02-14] MEDS: PENICILLIN V POTASSIUM 500 MG TAB PO SCH ×3 (08:53→17:20)
[2021-02-14] MEDS: FLUTICASONE FUROATE 100MCG 14 PUFFS/INHALER INH SCH (08:53)
[2021-02-14] MEDS: UMECLIDINIUM/VILANTEROL 62.5/25MCG 7 PUFFS/INHALER INH SCH (08:53)
[2021-02-14] MEDS: CARBIDOPA/LEVODOPA 25/100MG TAB PO SCH ×2 (08:53→14:40)
[2021-02-14] MEDS ORDERED: INSULIN GLARGINE SOLOSTAR 100 UNITS/ML 3 ML PEN SC SCH (09:00)
--- NOTE | 2021-02-14 12:34 | Pharmacy Report ---
Pharmacy Glycemic Short Note 2 - Date of Service February 14, 2021 - Glycemic Short BSG Results (Last 24 hours): 02/13/21 02/13/21 02/14/21 16:38 20:03 07:34 Glucose POC Glucose 219 H 227 H 144 H 02/14/21 02/14/21 07:59 11:15 Glucose 139 H POC Glucose 157 H OUTPATIENT ANTIDIABETIC REGIMEN: * Lantus 20 units SC BID * NPH SC 1 unit for every 1 mg of Prednisone (i.e. 40 units for 40 mg) * Novolog SSI SC ACHS (max of 20 units per dose) * HbA1c = 8.5% (01/11/21) ASSESSMENT: 02/14/21 * Patient's BSGs yesterday were [phone] MG/DL. * Patient received 79 units of insulin (20 units of basal and 59 units of bolus). * Fasting BSG today was 144 mg/dL. * Patient's fasting BSG is trending upwards (109 --> 144 mg/dL) so will increase to Lantus 11 units BID (10%) * Tighten CR as patient's BSGs trended upwards after eating. 02/13/21 * Patient's BSGs yesterday were [phone] MG/DL. * Patient received 74 units of insulin (25 units of basal and 49 units of bolus). * Fasting BSG today was 109 mg/dL. * Patient's fasting BSG is trending downwards (129 --> 109 mg/dL) so will reduce to Lantus 10 units BID * Tighten CR as patient's BSGs trended upwards after eating. 02/12/21 * Patient's BSGs yesterday were [phone] and overnight were 162-130 mg/dL. * Patient received 34 units of insulin (20 units of basal and 14 units of bolus). * Fasting BSG today was 129 mg/dL. * When inpatient, patient typically requires around 50-60 units/day of Lantus; however, this is when patient is on higher doses of steroids (such as 40 mg of prednisone). Patient received half of home dose and fasting BSG within range. Start Lantus 10 units BID (if BSG > 160 mg/dL then 15 units) * Continue aggressive Novolog due to hyperglycemia with steroids. BACKGROUND * 75 yo M admitted today secondary to stroke-like symptoms. Pharmacy has been consulted to assist with inpatient glycemic management. Patient is a type 2 diabetic that is well known to our glycemic service. Will utilize previous admission data to guide dosing. * Upon admission, BSG was 226 mg/dL. Patient did not receive any insulin today. He did receive 125 mg of IV Methylprednisolone around 0900. He is NPO for the time being. * BSG was 279 mg/dL at 1800. Gave 20 units of Lantus (initially wanted 40 units but patient refused) and started Novolog based on previous admission data. Will add an overnight check. PLAN FOR INPATIENT GLYCEMIC CONTROL: * Basal insulin * Lantus 11 units SC BID * Bolus insulin * NovoLog per scale ACHS or Q6hrs while NPO * Goal Range: Low 110 mg/dL - High 140 mg/dL * Correction Factor: 15 mg/dL/unit * Nutritional / Prandial insulin per carb ratio of 1 unit per 2 grams CHO consumed PLAN FOR DISCHARGE: * Patient's HbA1C is improving and is at goal for his age and comorbidities. Continue to work with outpatient provider to optimize glycemic regimen.
--- NOTE | 2021-02-14 13:03 | XCELERA ---
[id number]
[2021-02-14] MEDS: WARFARIN SOD 10 MG TAB PO SCH (16:02)
--- NOTE | 2021-02-14 17:08 | Discharge Summary ---
Date of Service February 14, 2021 Admission HPI Per Admitting Provider Xavi Bradford is a 75 year old male with history of TIAs and mechanical heart valve who presents to the ER with right sided weakness that started yesterday. He reports recently discontinuing his warfarin for a dental procedure down in [place] with no cross coverage of anticoagulation (he used to take Lovenox but was told he didn't need to this time). On the way back home yesterday with hindsight he was [place] leg through the airport more. On waking up today around 3am however he noticed a much more profound right sided weakness. Struggling to stay upright when he sat up in bed and was falling to the right side. No change in voice, hearing or speech. As it was not improving he decided to call EMS. He notes his O2 sats were in the mid 80s last night and wonders if that had anything to do with it. He started back on warfarin 10mg daily since Sunday (2 days ago). On prior notes he has an intermittent left sided weakness however a right sided weakness appears to be new. In the ER CT head and head/neck angiograms were unremarkable. He was referred to medicine for right sided weakness and metabolic acidosis. Principal Diagnosis TIA Discharge Exam Constitutional WD/WN, vitals as above Eyes PERRL, conjunctivae normal, anicteric sclerae Respiratory normal respiratory effort, lungs clear to auscultation Cardiovascular RRR, no murmur, no edema Gastrointestinal (Abdomen) normal bowel sounds, soft, nontender, no hepatosplenomegaly Musculoskeletal 5/5 strength in upper extremities, left lower extremity. 4/5 strength in right lower extremity. Discharge Data Allergies Allergy/AdvReac Type Severity Reaction Status Date / Time Iodinated Contrast Media Allergy Severe Anaphylaxis Verified 02/11/21 09:47 shellfish derived Allergy Severe Anaphylaxis Verified 02/11/21 09:47 tamsulosin [From Flomax] Allergy Intermediate Itching Unverified 02/11/21 09:47 Tetanus Vaccines and Toxoid Allergy Unknown Unknown Verified 02/11/21 09:47 Consultations 02/11/21 10:53 ED Decision to Admit Stat 02/11/21 16:51 Consult Neurology Routine Ordered Studies 02/11/21 08:27 CT head/brain wo con Stat IMPRESSION: No acute intracranial abnormality. 02/11/21 08:41 CT angio head w con Stat IMPRESSION: 1. There is no evidence of hemorrhage, mass effect, or acute territorial ischemia noting angiographic phase technique. 2. Unremarkable CT angiogram of the brain. 3. Unremarkable CT angiogram of the neck. CT angio neck with con Stat IMPRESSION: 1. There is no evidence of hemorrhage, mass effect, or acute territorial ischemia noting angiographic phase technique. 2. Unremarkable CT angiogram of the brain. 3. Unremarkable CT angiogram of the neck. 02/11/21 11:10 MR brain wo con Urgent IMPRESSION: No acute intracranial abnormality. 02/12/21 12:37 MR cervical spine wo/w con Routine IMPRESSION: 1. No fracture or subluxation within the cervical spine. 2. C4-C5 anterior cervical discectomy and fusion. 3. A small left paracentral focal disc protrusion at C3-C4 and a left paracentral posterior osteophyte at C4-C5. These abut the exiting nerve roots at these levels and results in severe left-sided neural foraminal narrowing. 4. Additional degenerative changes as described above. MR lumbar spine wo/w con Routine IMPRESSION: 1. No fracture or subluxation within the lumbar spine. 2. Posterior decompression and fusion from L3 through S1 with pedicle screws and rods. 3. No significant central canal narrowing. 4. Bilateral neural foraminal narrowing as described above. This is similar to the prior study. Hospital Course (1) Stroke-like symptoms: (2) Chronic back pain: (3) Subtherapeutic international normalized ratio (INR): 75 year old male with past medical history of TIA, paroxysmal A. Fib on warfarin, RA, Polymyositis, T2DM, Interstitial lung disease, and parkinson's disease who was admitted for TIA with right sided weakness. Right sided weakness thought to be due to TIA vs. nerve impingement -CT and MRI of head negative, symptoms resolved throughout hospital stay. -TIA possibly due to subtherapeutic INR but less likely. INR therapeutic on discharge -With extensive spine ds - radiculopathy likely the etiology. -Outpatient neuro follow up Subtherapeutic INR -Recent restart of warfarin without heparin bridge, INR initially read 1.1 - subtherapeutic. -Patient started back on warfarin with heparin bridge -INR upon discharge 2.4, -Follow up outpatient for INR checks. Chronic back pain: -Patient with CT spine findings above. Patient is already on medications to help with the neuropathic pain. -Recommended to patient to follow up outpatient with OMT at the [facility]. . Diabetes: Glucose kept within upper 100's lower 200 range during stay. Continue home diabetes medications. Total Time Total Time Spent Total Time Spent (In Minutes): See attending attestation. Discharge Plan Discharge Items Patient Disposition: Home - Self-Care Reason For Visit: TIA Discharge Diagnosis: TIA Condition on Discharge: Good Activity: Per Instructions section Non-emergency contact: Primary Care Provider and Neurologist Call non-emergency contact if: your symptoms worsen and your temperature is above 101 Follow-up/Referrals: Josh Gaspar MD [Primary Care Provider] - Diet: Regular Addtl Attending Provider Instructions: Right sided weakness: You came in to the hospital with symptoms of right sided weakness. This can be caused by many different things including a clot to the brain or nerve impingement of your spine. Your imaging was negative for any signs of stroke to your brain, and your symptoms resolved throughout your hospital stay. If you resume Coumadin without heparin after a surgery, there is a risk of forming a clot. Please consult your primary care physician whenever you start or stop your Coumadin therapy. Chronic low back pain: Because of your history of nerve impingement, it is recommended you follow up with your neurologist outpatient as well as your primary care doctor. You can also see a doctor of osteopathic medicine for osteopathic manipulative treatment nursing home as Dr. Navas recommended. Remember to do the exercises you learned from physical therapy to help with the pain from your nerve impingement. You can follow up with myself Dr. Thakkar or Dr. Morales (Residents) at the [facility]. If you experience any: worsening of pain, re-emergence of one sided weakness, or worsening of balance please come back for re-evaluation. Follow up: PCP - 1 week Neurology Pending Studies at Discharge: No Stand-Alone Forms: [facility] [employer] [facility], Smoking Cessation Medications and DC Order Prescriptions: Continued carbidopa-levodopa 25-100 mg tablet 1 tab PO TID Qty: 90 RF: 2 gabapentin 300 mg capsule 300 mg PO BID Qty: 180 RF: 1 nitroglycerin 0.4 mg Tablet, Sublingual 0.4 mg sublingual DIRECTED PRN (Reason: Chest Pain) RF: 0 albuterol sulfate [Ventolin HFA] 90 mcg/actuation Hfa Aerosol Inhaler 2 puff INHALATION Q4H PRN (Reason: Wheezing) RF: 0 cholecalciferol (vitamin D3) [Vitamin D3] 50 mcg (2,000 unit) Capsule 2,000 unit PO HS RF: 0 atorvastatin 40 mg tablet 40 mg PO HS RF: 0 sennosides [Senokot] 8.6 mg tablet 17.2 mg PO QAM RF: 0 nystatin 100,000 unit/mL suspension 5 ml mucous membrane UD RF: 0 warfarin [Jantoven] 10 mg tablet 10 mg PO HS RF: 0 prednisone 5 mg tablet 5 mg PO QAM RF: 0 penicillin V potassium 500 mg tablet 500 mg PO QID RF: 0 potassium chloride [K-Tab] 10 mEq tablet extended release 10 meq PO QAM RF: 0 fexofenadine [Karlee Allergy] 180 mg Tablet 180 mg PO QAM RF: 0 calcium carbonate [Calcium 600] 600 mg calcium (1,500 mg) Tablet 600 mg PO HS RF: 0 Probiotic 3 billion cell Capsule 3,000 mmu cells PO QAM RF: 0 topiramate [Topamax] 100 mg tablet 100 mg PO BID RF: 0 levetiracetam [Keppra] 1,000 mg tablet 1,000 mg PO BID RF: 0 Trelegy Ellipta 100-62.5-25 mcg blister with device 1 inh inhalation QAM RF: 0 insulin aspart U-100 [Novolog Flexpen U-100 Insulin] 100 unit/mL (3 mL) insulin pen 0 unit SUBCUT ACHS RF: 0 aspirin [Adult Low Dose Aspirin] 81 mg tablet,delayed release (DR/EC) 81 mg PO QAM RF: 0 ondansetron 4 mg tablet,disintegrating 4 mg PO Q6H PRN (Reason: nausea and vomiting) Qty: 14 RF: 0 sulfamethoxazole-trimethoprim [Bactrim DS] 800-160 mg Tablet 1 tab PO MoWeFr Qty: 12 RF: 0 Novolin N NPH U-100 Insulin 100 unit/mL Suspension See Rx Instructions .ROUTE .COMPLEX Qty: 10 RF: 0 Lantus Solostar U-100 Insulin 100 unit/mL (3 mL) insulin pen 20 unit SUBCUT BID Qty: 0 RF: 0 Discharge Orders: Discharge Order (Routine); Ordered 02/14/21 Ordered By: Seven Sen/Other Patient Handouts: A1C, High Blood Sugar (Hyperglycemia), Hypoglycemia (Low Blood Sugar), Managing Type 2 Diabetes Admission Data Admit Date/Time: 02/11/21 11:22 Attending Provider: Apoorva Dwyer Admit Provider: Toni Goldsmith Primary Care Provider: Josh Gaspar Other Providers: Toni Goldsmith ; Irving Sam Other Interventions: Discharge Summary Assessment (RN) Last Done: 02/14/21 17:30 Supervising Physician Co-Signing Physician Notes Resident Physician Supervision Note: I independently interviewed and examined the patient and verified the peña history and physical, reviewed labs and image studies and agree with resident Dr. Thakkar findings and care plan. Resident Activity Tracking Resident Involvement: Resident Care Provided Care Provided: Adult Hospital Medicine
== END 2021-02-14 18:47 | disposition home or self-care (01) ==
LOC: ED 07:38 → EDINP 07:38 → SUATTDRO 11:22 → 2S 16:38 → 2N 02-12 16:46

== ENCOUNTER 2021-04-07 16:27 | Observation (INO) ==
--- NOTE | 2021-04-07 16:53 | Emergency Department Note ---
Impression & Plan Weakness, Fall, Anemia, Confusion, Diarrhea ED Provider Note NAME: OSBALDO AGUILAR AGE: 76 SEX: M : 1945 ARRIVES VIA: Ambulance INFORMANT: [Patient][ems] ED PROVIDER(S): [Tan Lowe MD] CHIEF COMPLAINT: Fall, confusion HISTORY OF PRESENT ILLNESS: The patient is a 76-year-old male who apparently fell. The reason for the fall is not clear. It was a ground-level fall. He did press his life alert. As per EMS, his blood sugar was adequate. He complained of some left hip pain and some facial/head pain. As per EMS, the patient seemed confused/altered. The patient is on Coumadin for a mechanical valve. There was an initial complaint of some abdominal pain however, this now no longer seems to be present. The patient was found prone by EMS. The patient later in his ED stay began to become a bit more awake and was able to admit to some loose and diarrheal-like stool for the last few days. He has had some chills and has felt fatigued. He has had a little bit of some stuffy nose and a slight cough. No black or bloody stool. He is vaccinated for COVID- 19 and influenza. The patient does have a seizure history, he does not think he had a seizure today. REVIEW OF SYSTEMS: ROS: Please see HPI. At least 10 systems in total were reviewed and otherwise negative. PMHx/PSHx: See Below SOCIAL HISTORY: See Below. PHYSICAL EXAM: GENERAL: Patient is in no acute distress. HEENT: No obvious facial bony step-off. Pupils equal and reactive to light. Mucous membranes moist. There is some dried blood around the nose consistent with some facial trauma, no active bleeding, no deformity to the nose. TMs clear bilaterally. NECK: No stridor, no adenopathy, no posterior C-spine step-off or tenderness, trachea is midline. LUNGS: Clear to auscultation bilaterally when listening anterior, no wheeze, no rhonchi, breath sounds equal. HEART: There is an irregular rhythm with a metallic click. A subtle murmur was heard. Normal rate. ABDOMEN: Soft, nontender, bowel sounds positive, no peritonitis. EXTREMITIES: No cyanosis. Mild bilateral pedal edema. No obvious deformity to the upper or lower extremities. No real discomfort to move the upper or lower extremities. NEUROLOGIC: Seems a bit confused, does answer very simple questions well, no acute motor or sensory deficits, no focal weakness. SKIN: No rash, no jaundice, no diaphoresis. Rectal: Brown stool, heme-negative. DIFFERENTIAL DIAGNOSIS: Infection, dehydration, metabolic abnormality, hypo/hyperglycemia, intracranial bleeding, facial or C-spine fracture, hip or pelvic fracture, electrolyte disturbance, anemia, hypoxia, seizure, cardiac sources, intracerebral event, toxicologic issues, stroke, TIA, as well as other pathologies. EMERGENCY DEPARTMENT COURSE/PROCEDURES: ECG: Indication was weakness and fall. The ECG shows a normal sinus rhythm with a rate of 70. There is some baseline artifact. There are some inverted T waves noted laterally. No ST elevation. No PVCs. The QTc is 457. Continuous Cardiac Monitoring: An order was placed for continuous cardiac monitoring. The monitor shows a rate of 75 with normal sinus rhythm. Critical Care Note: I have personally spent 41 minutes of critical care time in the direct management of this patient. This includes bedside care, interpretation of diagnostic studies, and testing, discussion with consultants, patient, and family members, and other required patient management activities. This 41 minutes is in excess of all separately billable procedures. MEDICAL DECISION MAKING: There is a slightly lower white blood cell count, the patient is anemic but this appears baseline when looking back at previous testing. I did perform a rectal exam. The stool was brown and heme-negative. There is a normal platelet count. INR is elevated at 3.3, this is consistent with his Coumadin use. No significant electrolyte abnormality or kidney failure. Lactic acid level is not elevated making severe sepsis less likely. No concerning liver enzyme elevation. The patient appeared to be in a euthyroid state. ECG shows a sinus rhythm, no acute ischemia. Cardiac enzyme testing x1 is not consistent with acute cardiac injury. Covid, influenza and RSV testing returned negative. Chest film shows cardiomegaly, no pneumonia or CHF. Brain CT shows no acute bleed or mass-effect. C-spine CT shows no acute fracture. Facial CT shows no acute fracture. Abdominal and pelvis CT does not show any acute traumatic process. Films of the left hip and pelvis were performed, no fractures were seen. The patient became more interactive and more oriented while here in the ED. He initially presented a bit confused. The patient was given a total of 1 L of saline for hydration. At this point, the cause for the fall and weakness is unclear. Viral illness is possible. He is attempting to provide a urine sample so as to rule out UTI. The patient certainly may have had a seizure. He has a seizure history. He cannot really remember what happened. Further care in the hospital is warranted. Further work-up is warranted. I did speak with the patient and case management. The on-call hospitalist was consulted. Past Med/Surg History Medical History Abnormal CT scan, chest Abnormal CT scan, chest Acute hyperglycemia Acute left-sided muscle weakness CAD (coronary artery disease) Chest pain Chronic pulmonary aspiration Dehydration Diabetes Dyspnea on exertion Fall Fluid overload HLD (hyperlipidemia) Hypoxia Interstitial lung disease Interstitial lung disease Interstitial lung disease Interstitial lung disease due to connective tissue disease Lung nodule Neurogenic claudication Nocturnal hypoxemia Nocturnal hypoxia Palliative care encounter Polymyositis Polymyositis Polymyositis Prostate cancer s/p XRT Rheumatoid arthritis Rheumatoid arthritis Shortness of breath Stroke-like symptom 12/2019, w/ blurry vision and dysarthria. mild R sided wkness. attending outpatient physical therapy w/ good improvement in strength (5+/5 strength of all 4 extremities as of 05/28/20) Subtherapeutic international normalized ratio (INR) Supratherapeutic INR Thoracic ascending aortic aneurysm s/p repair Weakness Surgical History H/O hernia repair History of aortic valve replacement mechanical History of cholecystectomy History of fusion of cervical spine History of gastric bypass lap band History of heart artery stent History of lung biopsy 2019 History of partial nephrectomy Family History Mother , age 87 of pulmonary issues Rheumatoid arthritis Father , in his mid 80s of a stroke Stroke Other Coronary heart disease Social History Smoking Status: Never smoker Second Hand Exposure: No; Hx Alcohol Use: No Hx Substance Use: No Preferred Language: [place]al[place] Communication Ability: Effective Hearing Ability: Hard of Hearing Registered 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 Part Time Required: No Beliefs That Will Affect Care: None marital status: / Current Living Situation: Alone Current Living Situation Comment: spends nights with son, has [employer] weekdays from 12-29 current occupational status: retired 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 Feels Safe at Home: Yes Assistive Devices: Glasses and Walker Allergies Allergies Allergy/AdvReac Type Severity Reaction Status Date / Time Iodinated Contrast Media Allergy Severe Anaphylaxis Verified 03/14/21 14:02 shellfish derived Allergy Severe Anaphylaxis Verified 03/14/21 14:02 tamsulosin [From Flomax] Allergy Intermediate Itching Unverified 03/14/21 14:02 Tetanus Vaccines and Toxoid Allergy Unknown Unknown Verified 03/14/21 14:02 Home Meds Home Medications Medication Instructions Recorded Confirmed albuterol sulfate 90 mcg/actuation 2 puff INHALATION Q4H PRN 01/20/20 03/14/21 aerosol inhaler (Ventolin HFA) cholecalciferol (vitamin D3) 50 2,000 unit PO HS 01/20/20 03/14/21 mcg (2,000 unit) capsule (Vitamin D3) nitroglycerin 0.4 mg sublingual 0.4 mg SUBLINGUAL DIRECTED PRN 01/20/20 03/14/21 tablet atorvastatin 40 mg tablet 40 mg PO HS 05/28/20 03/14/21 insulin aspart U-100 100 unit/mL 0 unit SUBCUT ACHS 09/04/20 03/14/21 (3 mL) subcutaneous pen (Novolog Flexpen U-100 Insulin aspart) aspirin 81 mg tablet,delayed 81 mg PO QAM 10/09/20 03/14/21 release (Adult Low Dose Aspirin) sennosides 8.6 mg tablet (Senokot) 17.2 mg PO QAM 10/19/20 03/14/21 calcium carbonate 600 mg calcium 600 mg PO HS 02/11/21 03/14/21 (1,500 mg) tablet (Calcium) fexofenadine 180 mg tablet 180 mg PO QAM 02/11/21 03/14/21 (Karlee Allergy) fluticasone fur. 100 mcg-umeclid 1 inh INHALATION QAM 02/11/21 03/14/21 62.5 mcg-vilant 25 mcg inhalat.powder (Trelegy Ellipta) lactobacillus combination no.4 3 3,000 mmu cells PO QAM 02/11/21 03/14/21 billion cell capsule (Probiotic) levetiracetam 1,000 mg tablet 1,000 mg PO BID 02/11/21 03/14/21 (Keppra) potassium chloride 10 mEq 10 meq PO QAM 02/11/21 03/14/21 tablet,extended release (K-Tab) prednisone 5 mg tablet 5 mg PO QAM 02/11/21 03/14/21 topiramate 100 mg tablet (Topamax) 100 mg PO BID 02/11/21 03/14/21 warfarin 10 mg tablet (Jantoven) 10 mg PO HS 02/11/21 03/14/21 Previous Rx's Medication Instructions Recorded gabapentin 300 mg capsule 300 mg PO BID #180 cap 12/28/20 insulin NPH isoph U-100 human 100 See Rx Instructions .ROUTE 01/12/21 unit/mL subcutaneous suspension .COMPLEX #10 ml (Novolin N NPH U-100 Insulin isophane) insulin glargine 100 unit/mL (3 20 unit SUBCUT BID #0 ml 01/12/21 mL) subcutaneous pen (Lantus Solostar U-100 Insulin) carbidopa 25 mg-levodopa 100 mg 1 tab PO TID #90 tab 01/31/21 tablet furosemide 20 mg tablet (Lasix) 20 mg PO DAILY #30 tab 03/14/21 nintedanib 150 mg capsule (Ofev) 150 mg PO Q12H #60 cap 03/14/21 Results & Data (ED) Vital Signs Vital Signs - 24 hr 04/07/21 16:45 04/07/21 17:16 04/07/21 18:41 Temperature 37.3 C Temperature Source Oral Pulse Rate 74 Respiratory Rate 20 16 Respiratory Effort / Characteristics Non-Labored Respiratory Depth Normal Blood Pressure 164/95 H Blood Pressure [Right Arm] 132/70 Blood Pressure Mean 118 Blood Pressure Mean [Right Arm] 90 Pulse Oximetry 99 99 96 Oxygen Delivery Method Room Air Room Air Room Air Sepsis Recent Fever Within 48 Hours No Sepsis New/Unexplained Change in Mental Status N/A Sepsis Action Taken by Nursing No Action Required Home Medications Current Medication List: was personally reviewed by me Laboratory Data Attestation: I reviewed the patient's lab results. Result diagrams: 04/07/21 17:06 04/07/21 17:06 Lab Results 04/07/21 04/07/21 04/07/21 Range/Units 17:06 17:06 17:06 WBC 4.61 L (4.8-10.8) K/uL RBC 3.96 L (4.7-6.1) M/uL Hgb 9.9 L (14.0-18.0) g/dL Hct 32.6 L (42-52) % MCV 82.3 (80-100) fL MCH 25.0 (25-34) pg MCHC 30.4 L (32-36) g/dL RDW Std Deviation 48.1 H (36.4-46.3) fL RDW Coeff of Lianne 15.8 H (11.5-14.5) % Plt Count 153 (130-400) K/uL MPV 9.3 (7.4-10.4) fL Immature Gran % (Auto) 0.7 % Neut % (Auto) 70.1 % Lymph % (Auto) 21.0 % Yancey % (Auto) 5.6 % Eos % (Auto) 2.4 % Baso % (Auto) 0.2 % Neut # (Auto) 3.23 (1.4-6.5) K/uL Lymph # (Auto) 0.97 L (1.2-3.4) K/uL Yancey # (Auto) 0.26 (0.11-0.59) K/uL Eos # (Auto) 0.11 (0-0.5) K/uL Baso # (Auto) 0.01 (0-0.2) K/uL Immature Gran # (Auto) 0.03 H (0.00-0.02) K/uL PT 30.5 H (9.0-12.0) Seconds INR 3.3 H (0.9-1.1) APTT 45.3 H* (21.0-31.0) Seconds PTT Ratio 1.7 Sodium 141 (136-145) mmol/L Potassium 3.6 (3.5-5.1) mmol/L Chloride 111 H (98-107) mmol/L Carbon Dioxide 24 (21-32) mmol/L Anion Gap 6.0 (3-11) BUN 28 H (7-18) mg/dl Creatinine 1.20 (0.6-1.4) mg/dl Est Cr Clr Drug Dosing Not Reportable Est GFR ( Amer) 67.7 ml/min Est GFR (Non-Af Amer) 58.4 ml/min BUN/Creatinine Ratio 23.0 H (10-20) Glucose 128 H (70-99) mg/dl Lactate (0.4-2.0) mmol/L Calcium 9.3 (8.5-10.1) mg/dl Total Bilirubin 0.3 (0.2-1) mg/dl AST 14 L (15-37) U/L ALT 36 (12-78) Alkaline Phosphatase 74 (45-117) U/L Total Creatine Kinase 62 (39-308) U/L Troponin I < 0.015 (0-0.045) ng/ml Total Protein 6.2 L (6.4-8.2) gm/dl Albumin 3.1 L (3.4-5.0) gm/dl Globulin 3.1 (2.5-4.0) gm/dl Albumin/Globulin Ratio 1.0 (0.9-2) TSH 1.220 (0.300-4.500) uIu/ml SARS-CoV-2 (PCR) (Negative) Influenza Type A (PCR) (Neg) Influenza Type B (PCR) (Neg) RSV (RT-PCR) (Neg) 04/07/21 04/07/21 Range/Units 17:06 17:45 WBC (4.8-10.8) K/uL RBC (4.7-6.1) M/uL Hgb (14.0-18.0) g/dL Hct (42-52) % MCV (80-100) fL MCH (25-34) pg MCHC (32-36) g/dL RDW Std Deviation (36.4-46.3) fL RDW Coeff of Lianne (11.5-14.5) % Plt Count (130-400) K/uL MPV (7.4-10.4) fL Immature Gran % (Auto) % Neut % (Auto) % Lymph % (Auto) % Yancey % (Auto) % Eos % (Auto) % Baso % (Auto) % Neut # (Auto) (1.4-6.5) K/uL Lymph # (Auto) (1.2-3.4) K/uL Yancey # (Auto) (0.11-0.59) K/uL Eos # (Auto) (0-0.5) K/uL Baso # (Auto) (0-0.2) K/uL Immature Gran # (Auto) (0.00-0.02) K/uL PT (9.0-12.0) Seconds INR (0.9-1.1) APTT (21.0-31.0) Seconds PTT Ratio Sodium (136-145) mmol/L Potassium (3.5-5.1) mmol/L Chloride (98-107) mmol/L Carbon Dioxide (21-32) mmol/L Anion Gap (3-11) BUN (7-18) mg/dl Creatinine (0.6-1.4) mg/dl Est Cr Clr Drug Dosing Est GFR ( Amer) ml/min Est GFR (Non-Af Amer) ml/min BUN/Creatinine Ratio (10-20) Glucose (70-99) mg/dl Lactate 1.4 (0.4-2.0) mmol/L Calcium (8.5-10.1) mg/dl Total Bilirubin (0.2-1) mg/dl AST (15-37) U/L ALT (12-78) Alkaline Phosphatase (45-117) U/L Total Creatine Kinase (39-308) U/L Troponin I (0-0.045) ng/ml Total Protein (6.4-8.2) gm/dl Albumin (3.4-5.0) gm/dl Globulin (2.5-4.0) gm/dl Albumin/Globulin Ratio (0.9-2) TSH (0.300-4.500) uIu/ml SARS-CoV-2 (PCR) NEGATIVE (Negative) Influenza Type A (PCR) Negative (Neg) Influenza Type B (PCR) Negative (Neg) RSV (RT-PCR) Negative (Neg) Administered Medications Discontinued Medications Sodium Chloride (Nss) 500 mls @ 999 mls/hr IV .Q31M KIRSTEN Stop: 04/07/21 17:30 Last Admin: 04/07/21 18:44 Dose: 999 mls/hr Documented by: [id number] Sodium Chloride (Nss 1000ml) 500 mls @ 999 mls/hr IV .Q31M ONE Stop: 04/07/21 18:38 Last Admin: 04/07/21 19:10 Dose: 999 mls/hr Documented by: [id number] Imaging Data Radiologist's Impression: Abdomen/Pelvis CT 04/07/21 16:46 CT abd pelvis wo con CLINICAL HISTORY: fall, contrast allergy . Pain COMPARISON STUDY: 12/09/2020 TECHNIQUE: Standard CT of the Abdomen and Pelvis was performed without IV contrast. The patient did not receive oral contrast. A dose lowering technique was utilized adhering to the principles of ALARA. FINDINGS: Lung base: The lung bases are clear. There is chronic pleural thickening at the right lung base posteriorly. Abdominal cavity: There is no evidence for abdominal mass, adenopathy or ascites. Liver: The liver is homogeneous in attenuation on these limited noncontrast images.. Spleen: The spleen is homogeneous in attenuation on these limited noncontrast images. Pancreas: The pancreas is homogeneous in attenuation on these limited noncontrast images. Gall Bladder: The patient is status post cholecystectomy. Adrenal glands: The adrenal glands are normal in size and attenuation on these limited noncontrast images. Kidneys: The kidneys are homogeneous in attenuation on these limited noncontrast images. There is no evidence for gross renal mass, calculus or hydronephrosis bilaterally. Bowel: The patient is again status post gastric bypass surgery. The bowel loops are normally placed within the abdomen and pelvis without evidence for dilatation or obstruction. There is mild sigmoid diverticulosis without evidence for diverticulitis. There are no inflammatory changes present. There is no evidence for free air. Bladder: There is no evidence for focal bladder wall thickening, calculus or diverticulum. : There is no evidence for pelvic mass or adenopathy. Vasculature: There is no evidence for focal aneurysmal dilatation of the abd ominal aorta. Atherosclerotic calcification is present. Osseous structures: There is no acute osseous pathology. Degenerative changes are again seen within the spine with previous internal fixation. IMPRESSION: 1. No acute intra-abdominal or pelvic abnormality on these limited noncontrast images. 2. Chronic changes are again seen and unchanged. ACT 112: Negative or not required by law. Electronically signed by: Trent Ken M.D. 04/07/2021 5:[address] 04/07/21 16:46 CT cervical spine wo con CLINICAL HISTORY: fall . Neck pain COMPARISON STUDY: No previous studies for comparison. TECHNIQUE: Standard CT of the Cervical Spine was performed without IV contrast. A dose lowering technique was utilized adhering to the principles of ALARA. FINDINGS: Bones: The patient is status post anterior plate and screw fixation at C4-5. The bones are osteopenic. There is no evidence for an acute fracture or malalignment. The heights of the vertebral bodies are maintained. The vertebral bodies are in anatomic alignment. The odontoid is intact. Degenerative changes are seen at the atlantoaxial articulation. Disc spaces:There is moderate to marked disc space narrowing at C3-4 and C5-C6 with endplate cirrhosis and osteophyte formation. Apophyseal joints:Degenerative apophyseal joint disease is also present bilaterally. Soft tissues:The prevertebral soft tissues are within normal limits. IMPRESSION: Osteopenia with no acute osseous pathology. Stable spine fusion. Degenerative disc and degenerative joint disease. ACT 112: Negative or not required by law. Electronically signed by: Trent Ken M.D. 04/07/2021 5:47 PM Chest X-Ray 04/07/21 16:46 XR chest 1V portable CLINICAL HISTORY: weakness. Status post fall. Evaluate cardiopulmonary status COMPARISON STUDY: 02/11/2021 TECHNIQUE: 1 view of the chest FINDINGS: Single frontal view of the chest demonstrates the heart to again be enlarged status post previous cardiothoracic surgery. The lungs are clear of alveolar opacities. There is no evidence for pleural effusion. There is no evidence for vascular congestion. There is no acute osseous pathology. IMPRESSION: No acute cardiopulmonary disease. ACT 112: Negative or not required by law. Electronically signed by: Trent Ken M.D. 04/07/2021 5:[address] 04/07/21 16:46 CT facial bones wo con CLINICAL HISTORY: fall . Evaluate for facial fracture COMPARISON STUDY: No previous studies for comparison. CT DOSE: 2482.17 mGy.cm TECHNIQUE: Standard CT of the Facial Bones and Orbits was performed without IV contrast. A dose lowering technique was utilized adhering to the principles of ALARA. FINDINGS: Bones: There are no displaced fractures identified. The orbital rims are intact bilaterally. The zygomatic arches are intact bilaterally. Nasal bones are intact . The nasal septum is in the midline. The mandible and maxilla are intact. There are degenerative changes of temporal mandibular joints. Paranasal sinuses:There is very mild mucosal thickening involving the maxillary antra bilaterally. The remaining paranasal sinuses are clear. Soft tissues:There is no focal soft tissue swelling. IMPRESSION: No acute abnormality. ACT 112: Negative or not required by law. Electronically signed by: Trent Ken M.D. 04/07/2021 5:[address] 04/07/21 16:46 CT head/brain wo con CLINICAL HISTORY: fall . Pain. COMPARISON STUDY: 02/11/2021 TECHNIQUE: Standard CT of the Brain was performed without IV contrast. A dose lowering technique was utilized adhering to the principles of ALARA. FINDINGS: Extraaxial space: There is no evidence for subdural hematoma. There are no extra-axial fluid collections. Ventricles and cisterns: The ventricles are normal in size and configuration. There is no evidence for midline shift or mass effect. Parenchyma: There is no subarachnoid or intraparenchymal hemorrhage. There is no evidence for an acute infarct or cerebral edema. There is mild cerebral cortical atrophy and decreased attenuation in the periventricular white matter representing remote small vessel disease. There are no gross mass lesions. Osseous structures: There is no evidence for an acute fracture. The visualized paranasal sinuses are clear. The mastoid air cells are clear bilaterally. Soft tissues: There is no evidence for focal soft tissue swelling. IMPRESSION: No acute intracerebral pathology. Mild cerebral cortical atrophy and remote small vessel disease. ACT 112: Negative or not required by law. Electronically signed by: Trent Ken M.D. 04/07/2021 5:42 PM Hip/Pelvis X-Ray 04/07/21 16:46 XR hip LT 2V w pelvis CLINICAL HISTORY: Status post fall with left hip pain. COMPARISON STUDY: 08/31/2020 TECHNIQUE: AP pelvis and 2 left hip views FINDINGS: Bones: There is no evidence for an acute fracture or dislocation. There is no lytic or blastic lesion. Joints: There is mild narrowing of the left hip joint space. Degenerative changes are seen at the SI joints. The remaining visualized bones of the pelvis are intact. The bones are in anatomic alignment. Lumbar spine: The patient is again status post internal fixation of lower lumbar spine with embolectomy defects present. Soft tissues: There is no focal soft tissue abnormality. There is no radiopaque foreign body. IMPRESSION: No acute osseous pathology. Degenerative changes and postsurgical changes of lumbar spine. ACT 112: Negative or not required by law. Electronically signed by: Trent Ken M.D. 04/07/2021 5:30 PM Discharge Plan Visit Data Chief Complaint: Fall Stated Complaint: FALL, CONFUSION, AMS, HEAD, AB, & HIP PAIN ED Provider: Tan Lowe Discharge Problem: Weakness, Fall, Anemia, Confusion, Diarrhea Patient Disposition: Admitted As Inpatient Condition: Fair Forms Stand Alone Forms: My [facility] Prescriptions Prescriptions: No Action carbidopa-levodopa 25-100 mg tablet 1 tab PO TID Qty: 90 RF: 2 furosemide [Lasix] 20 mg tablet 20 mg PO DAILY Qty: 30 RF: 0 Ofev 150 mg capsule 150 mg PO Q12H Qty: 60 RF: 2 gabapentin 300 mg capsule 300 mg PO BID Qty: 180 RF: 1 nitroglycerin 0.4 mg Tablet, Sublingual 0.4 mg sublingual DIRECTED PRN (Reason: Chest Pain) RF: 0 albuterol sulfate [Ventolin HFA] 90 mcg/actuation Hfa Aerosol Inhaler 2 puff INHALATION Q4H PRN (Reason: Wheezing) RF: 0 cholecalciferol (vitamin D3) [Vitamin D3] 50 mcg (2,000 unit) Capsule 2,000 unit PO HS RF: 0 atorvastatin 40 mg tablet 40 mg PO HS RF: 0 sennosides [Senokot] 8.6 mg tablet 17.2 mg PO QAM RF: 0 warfarin [Jantoven] 10 mg tablet 10 mg PO HS RF: 0 prednisone 5 mg tablet 5 mg PO QAM RF: 0 potassium chloride [K-Tab] 10 mEq tablet extended release 10 meq PO QAM RF: 0 fexofenadine [Karlee Allergy] 180 mg Tablet 180 mg PO QAM RF: 0 calcium carbonate [Calcium 600] 600 mg calcium (1,500 mg) Tablet 600 mg PO HS RF: 0 Probiotic 3 billion cell Capsule 3,000 mmu cells PO QAM RF: 0 topiramate [Topamax] 100 mg tablet 100 mg PO BID RF: 0 levetiracetam [Keppra] 1,000 mg tablet 1,000 mg PO BID RF: 0 Trelegy Ellipta 100-62.5-25 mcg blister with device 1 inh inhalation QAM RF: 0 insulin aspart U-100 [Novolog Flexpen U-100 Insulin] 100 unit/mL (3 mL) insulin pen 0 unit SUBCUT ACHS RF: 0 aspirin [Adult Low Dose Aspirin] 81 mg tablet,delayed release (DR/EC) 81 mg PO QAM RF: 0 Novolin N NPH U-100 Insulin 100 unit/mL Suspension See Rx Instructions .ROUTE .COMPLEX Qty: 10 RF: 0 Lantus Solostar U-100 Insulin 100 unit/mL (3 mL) insulin pen 20 unit SUBCUT BID Qty: 0 RF: 0 Referrals Referrals: Josh Gaspar MD [Primary Care Provider] -
[2021-04-07] MEDS ORDERED: SODIUM CHLORIDE 0.9% 500 ML IV SCH (17:00)
[2021-04-07 17:17] LABS: Basophils # (auto) 0.01 K/uL (0-0.2); Basophils % (auto) 0.2 %; Eosinophils # (auto) 0.11 K/uL (0-0.5); Eosinophils % (auto) 2.4 %; Hematocrit (blood only) 32.6 % (42-52); Hemoglobin 9.9 g/dL (14.0-18.0); Immature Granulocytes # (auto) 0.03 K/uL (0.00-0.02); Immature Granulocytes % (auto) 0.7 %; Lymphocytes # (auto) 0.97 K/uL (1.2-3.4); Mean Corpuscular Hgb Conc 30.4 g/dL (32-36); Mean Corpuscular Volume 82.3 fL (80-100); Mean Platelet Volume 9.3 fL (7.4-10.4); Monocytes # (auto) 0.26 K/uL (0.11-0.59); Monocytes % (auto) 5.6 %; Neutrophils # (auto) 3.23 K/uL (1.4-6.5); Neutrophils % (auto) 70.1 %; Platelet Count 153 K/uL (130-400); RDW Coefficient of Variation 15.8 % (11.5-14.5); RDW Standard Deviation 48.1 fL (36.4-46.3); Red Blood Count 3.96 M/uL (4.7-6.1); White Blood Count 4.61 K/uL (4.8-10.8)
--- NOTE | 2021-04-07 17:32 | XRay Report ---
XR chest 1V portable CLINICAL HISTORY: weakness. Status post fall. Evaluate cardiopulmonary status COMPARISON STUDY: 02/11/2021 TECHNIQUE: 1 view of the chest FINDINGS: Single frontal view of the chest demonstrates the heart to again be enlarged status post previous car diothoracic surgery. The lungs are clear of alveolar opacities. There is no evidence for pleural effu kadie. There is no evidence for vascular congestion. There is no acute osseous pathology. IMPRESSION: No acute cardiopulmonary disease. ACT 112: Negative or not required by law. Electronically signed by: Trent Ken M.D. 04/07/2021 5:31 PM
--- NOTE | 2021-04-07 17:32 | XRay Report ---
XR hip LT 2V w pelvis CLINICAL HISTORY: Status post fall with left hip pain. COMPARISON STUDY: 08/31/2020 TECHNIQUE: AP pelvis and 2 left hip views FINDINGS: Bones: There is no evidence for an acute fracture or dislocation. There is no lytic or blastic lesion . Joints: There is mild narrowing of the left hip joint space. Degenerative changes are seen at the SI joints. The remaining visualized bones of the pelvis are intact. The bones are in anatomic alignment. Lumbar spine: The patient is again status post internal fixation of lower lumbar spine with embolecto my defects present. Soft tissues: There is no focal soft tissue abnormality. There is no radiopaque foreign body. IMPRESSION: No acute osseous pathology. Degenerative changes and postsurgical changes of lumbar spine . ACT 112: Negative or not required by law. Electronically signed by: Trent Ken M.D. 04/07/2021 5:30 PM
[2021-04-07 17:34] LABS: Alanine Aminotransferase 36 (12-78); Albumin Level 3.1 gm/dl (3.4-5.0); Aspartate Aminotransferase 14 U/L (15-37); Blood Urea Nitrogen 28 mg/dl (7-18); Calcium 9.3 mg/dl (8.5-10.1); Carbon Dioxide 24 mmol/L (21-32); Chloride 111 mmol/L (98-107); Est GFR (African American) 67.7 ml/min; Est GFR (Non-African American) 58.4 ml/min; Glucose 128 mg/dl (70-99); Potassium 3.6 mmol/L (3.5-5.1); Sodium 141 mmol/L (136-145)
[2021-04-07 17:38] LABS: INR 3.3 (0.9-1.1); Partial Thromboplastin Ratio 1.7; Prothrombin Time 30.5 Seconds (9.0-12.0)
--- NOTE | 2021-04-07 17:43 | CT Scan Report ---
CT head/brain wo con CLINICAL HISTORY: fall . Pain. COMPARISON STUDY: 02/11/2021 TECHNIQUE: Standard CT of the Brain was performed without IV contrast. A dose lowering technique was utilized adhering to the principles of ALARA. FINDINGS: Extraaxial space: There is no evidence for subdural hematoma. There are no extra-axial fluid collecti ons. Ventricles and cisterns: The ventricles are normal in size and configuration. There is no evidence f or midline shift or mass effect. Parenchyma: There is no subarachnoid or intraparenchymal hemorrhage. There is no evidence for an acu te infarct or cerebral edema. There is mild cerebral cortical atrophy and decreased attenuation in th e periventricular white matter representing remote small vessel disease. There are no gross mass lesi ons. Osseous structures: There is no evidence for an acute fracture. The visualized paranasal sinuses are clear. The mastoid air cells are clear bilaterally. Soft tissues: There is no evidence for focal soft tissue swelling. IMPRESSION: No acute intracerebral pathology. Mild cerebral cortical atrophy and remote small vessel disease. ACT 112: Negative or not required by law. Electronically signed by: Trent Ken M.D. 04/07/2021 5:42 PM
[2021-04-07 17:45] LABS: Alkaline Phosphatase 74 U/L (45-117); Bilirubin,Total 0.3 mg/dl (0.2-1); Creatine Kinase 62 U/L (39-308); Globulin 3.1 gm/dl (2.5-4.0); Total Protein 6.2 gm/dl (6.4-8.2); Troponin I < 0.015 ng/ml (0-0.045)
--- NOTE | 2021-04-07 17:46 | CT Scan Report ---
CT facial bones wo con CLINICAL HISTORY: fall . Evaluate for facial fracture COMPARISON STUDY: No previous studies for comparison. CT DOSE: 2482.17 mGy.cm TECHNIQUE: Standard CT of the Facial Bones and Orbits was performed without IV contrast. A dose lowe ring technique was utilized adhering to the principles of ALARA. FINDINGS: Bones: There are no displaced fractures identified. The orbital rims are intact bilaterally. The zygo matic arches are intact bilaterally. Nasal bones are intact. The nasal septum is in the midline. The mandible and maxilla are intact. There are degenerative changes of temporal mandibular joints. Paranasal sinuses:There is very mild mucosal thickening involving the maxillary antra bilaterally. Th e remaining paranasal sinuses are clear. Soft tissues:There is no focal soft tissue swelling. IMPRESSION: No acute abnormality. ACT 112: Negative or not required by law. Electronically signed by: Trent Ken M.D. 04/07/2021 5:44 PM
--- NOTE | 2021-04-07 17:49 | CT Scan Report ---
CT cervical spine wo con CLINICAL HISTORY: fall . Neck pain COMPARISON STUDY: No previous studies for comparison. TECHNIQUE: Standard CT of the Cervical Spine was performed without IV contrast. A dose lowering te chnique was utilized adhering to the principles of ALARA. FINDINGS: Bones: The patient is status post anterior plate and screw fixation at C4-5. The bones are osteopenic . There is no evidence for an acute fracture or malalignment. The heights of the vertebral bodies are maintained. The vertebral bodies are in anatomic alignment. The odontoid is intact. Degenerative keren nges are seen at the atlantoaxial articulation. Disc spaces:There is moderate to marked disc space narrowing at C3-4 and C5-C6 with endplate cirrhosi s and osteophyte formation. Apophyseal joints:Degenerative apophyseal joint disease is also present bilaterally. Soft tissues:The prevertebral soft tissues are within normal limits. IMPRESSION: Osteopenia with no acute osseous pathology. Stable spine fusion. Degenerative disc and de generative joint disease. ACT 112: Negative or not required by law. Electronically signed by: Trent Ken M.D. 04/07/2021 5:47 PM
[2021-04-07 17:51] LABS: Partial Thromboplastin Time 45.3 Seconds (21.0-31.0)
--- NOTE | 2021-04-07 17:54 | CT Scan Report ---
CT abd pelvis wo con CLINICAL HISTORY: fall, contrast allergy . Pain COMPARISON STUDY: 12/09/2020 TECHNIQUE: Standard CT of the Abdomen and Pelvis was performed without IV contrast. The patient did not receive oral contrast. A dose lowering technique was utilized adhering to the principles of HAN Méndez. FINDINGS: Lung base: The lung bases are clear. There is chronic pleural thickening at the right lung base post eriorly. Abdominal cavity: There is no evidence for abdominal mass, adenopathy or ascites. Liver: The liver is homogeneous in attenuation on these limited noncontrast images.. Spleen: The spleen is homogeneous in attenuation on these limited noncontrast images. Pancreas: The pancreas is homogeneous in attenuation on these limited noncontrast images. Gall Bladder: The patient is status post cholecystectomy. Adrenal glands: The adrenal glands are normal in size and attenuation on these limited noncontrast im ages. Kidneys: The kidneys are homogeneous in attenuation on these limited noncontrast images. There is no evidence for gross renal mass, calculus or hydronephrosis bilaterally. Bowel: The patient is again status post gastric bypass surgery. The bowel loops are normally placed w ithin the abdomen and pelvis without evidence for dilatation or obstruction. There is mild sigmoid di verticulosis without evidence for diverticulitis. There are no inflammatory changes present. There is no evidence for free air. Bladder: There is no evidence for focal bladder wall thickening, calculus or diverticulum. : There is no evidence for pelvic mass or adenopathy. Vasculature: There is no evidence for focal aneurysmal dilatation of the abdominal aorta. Atheroscler otic calcification is present. Osseous structures: There is no acute osseous pathology. Degenerative changes are again seen within t he spine with previous internal fixation. IMPRESSION: 1. No acute intra-abdominal or pelvic abnormality on these limited noncontrast images. 2. Chronic changes are again seen and unchanged. ACT 112: Negative or not required by law. Electronically signed by: Trent Ken M.D. 04/07/2021 5:53 PM
[2021-04-07] MEDS ORDERED: SODIUM CHLORIDE 0.9% 1000ML 500 ML IV ONE (18:08)
[2021-04-07 19:01] LABS: Influenza A virus by PCR Negative (Neg); Influenza B virus by PCR Negative (Neg); RSV by PCR Negative (Neg); SARS CoV2 RNA(COVID-19) InHosp NEGATIVE (Negative)
[2021-04-07 19:43] LABS: Magnesium 2.2 mg/dl (1.8-2.4)
--- NOTE | 2021-04-07 20:33 | History & Physical Report ---
Date of Service April 07, 2021 Assessment & Plan (1) Fall: Plan: 76 yo M w/ extensive mPHx. significant for nocturnal hypoxia, interstitial lung disease, polymyositis, RA, diabetes, Gout, TIA, Aspiration pna, mechanical heart valve on Coumadin, gastric bypass, and anemia presenting after being found down in his bathroom. admit for observation on med/surg tele Fall potentially mechanical or vasovagal syncope given location in bathroom (situational) or secondary to dehydration from diarrhea and poor intake Seizure thought to be less likely at this time as patient has been seizure free for > 1 year although this is possible would be concerned that this is the 3rd fall over the last year, patient lives alone and is on Warfarin would consider home situation and safety going forward CT head, cervical spine, face, a/p without acute findings CXR with no acute findings EKG without new findings seen - holding Warfarin (last dose evening of 04/06) - orthostatic vitals - PT consulted - IVF 125ml/hr X1L Hip pain, left hip XR without signs of fx. potentially due to soft tissue injury without signs at this time of a hematoma - monitor for now, low threshold to CT if HGB drop or increased swelling or bruising - holding Warfarin for now Mechanical heart valve - on Warfarin INR 3.3 - holding Warfarin given fall as above Hx. of seizure - continue Keppra and Topamax ILD no current shortness of breath - continue Trelegy - continue Prednisone 10mg (increased from chronic 5mg) RA - continue Prednisone 10mg Parkinsonism - continue Sinemet DM - II - SSI - long acting decreased during hospitalization CAD - continue ASA, Statin DVT: holding Warfarin Code: full code Diet: DMII Admission and Anticipated Discharge Date Admission Date: Attending addendum: I have physically seen this patient, have supervised the medical residents activities, and agree with the H&P unless as otherwise noted. Assessment and Plan: Status post fall- Generalized weakness Differential for the mechanical versus vasovagal versus seizure Hold anticoagulation this evening to concern for increased risk factor for subdural hematomas Consult PT/OT Patient should be assessed for whether he is capable of living at home by himself. Mechanical heart valve- Target INR 2.5-3.0 INR 3.3 upon admission Holding warfarin as noted above due to concerns regarding potential subdural Remaining orders and notations as noted History of Present Illness Chief Complaint: fall Primary Care Provider: Josh Gaspar MD Xavi Bradford has a extensive past medical history of nocturnal hypoxia, interstitial lung disease, polymyositis, RA, diabetes, Gout, TIA, Aspiration pna, mechanical heart valve on Coumadin, gastric bypass, and anemia. He is coming in after a fall at home. The fall occurred some time after lunch. He does not remember the fall. When asked about the events he states, "I don't know and can't remember much". He just remembers being on the floor. He did take his medications last this morning 04/07. He brought up that he has right foot drop and may have fallen and hit the right side of his face. He was not in the shower. He had left hip/groin pain since that he describes as mild soreness. He has a history of SI joint dyfunction and prior spine surgery but this pain is different in the location. He has been having some diarrhea/increased bowel frequency over the last 3 days with 4-5 bowel movements in the last 3 day. He has had some dark stool. He has had rhinorrhea, congestion, sore throat and cough. increased RA symptoms and rheumatology increased his steroids 2 weeks ago with the plan of a taper of 20 mg prednisone for 7 days 15 mg prednisone for 7 days and 10 mg prednisone for 7 days and potentially going forward after talking with his PCP Dr. Gaspar with [facility]. Allergies Allergy/AdvReac Type Severity Reaction Status Date / Time Iodinated Contrast Media Allergy Severe Anaphylaxis Verified 04/07/21 19:43 shellfish derived Allergy Severe Anaphylaxis Verified 04/07/21 19:43 tamsulosin [From Flomax] Allergy Intermediate Itching Unverified 04/07/21 19:43 Tetanus Vaccines and Toxoid Allergy Unknown Unknown Verified 04/07/21 19:43 Home Medications Medication Instructions Recorded Confirmed Type albuterol sulfate 90 mcg/actuation 2 puff INHALATION Q4H PRN 01/20/20 04/07/21 History aerosol inhaler (Ventolin HFA) cholecalciferol (vitamin D3) 50 2,000 unit PO HS 01/20/20 04/07/21 History mcg (2,000 unit) capsule (Vitamin D3) nitroglycerin 0.4 mg sublingual 0.4 mg SUBLINGUAL DIRECTED PRN 01/20/20 04/07/21 History tablet atorvastatin 40 mg tablet 40 mg PO HS 05/28/20 04/07/21 History insulin aspart U-100 100 unit/mL 0 unit SUBCUT ACHS 09/04/20 04/07/21 History (3 mL) subcutaneous pen (Novolog Flexpen U-100 Insulin aspart) aspirin 81 mg tablet,delayed 81 mg PO QAM 10/09/20 04/07/21 History release (Adult Low Dose Aspirin) sennosides 8.6 mg tablet (Senokot) 17.2 mg PO QAM 10/19/20 04/07/21 History gabapentin 300 mg capsule 300 mg PO BID #180 cap 12/28/20 04/07/21 Rx insulin NPH isoph U-100 human 100 See Rx Instructions .ROUTE 01/12/21 04/07/21 Rx unit/mL subcutaneous suspension .COMPLEX #10 ml (Novolin N NPH U-100 Insulin isophane) insulin glargine 100 unit/mL (3 20 unit SUBCUT BID #0 ml 01/12/21 04/07/21 Rx mL) subcutaneous pen (Lantus Solostar U-100 Insulin) carbidopa 25 mg-levodopa 100 mg 1 tab PO TID #90 tab 01/31/21 04/07/21 Rx tablet calcium carbonate 600 mg calcium 600 mg PO HS 02/11/21 04/07/21 History (1,500 mg) tablet (Calcium) fexofenadine 180 mg tablet 180 mg PO QAM 02/11/21 04/07/21 History (Karlee Allergy) fluticasone fur. 100 mcg-umeclid 1 inh INHALATION QAM 02/11/21 04/07/21 History 62.5 mcg-vilant 25 mcg inhalat.powder (Trelegy Ellipta) lactobacillus combination no.4 3 3,000 mmu cells PO QAM 02/11/21 04/07/21 History billion cell capsule (Probiotic) levetiracetam 1,000 mg tablet 1,000 mg PO BID 02/11/21 04/07/21 History (Keppra) potassium chloride 10 mEq 10 meq PO QAM 02/11/21 04/07/21 History tablet,extended release (K-Tab) prednisone 5 mg tablet 5 mg PO QAM 02/11/21 04/07/21 History topiramate 100 mg tablet (Topamax) 100 mg PO BID 02/11/21 04/07/21 History warfarin 10 mg tablet (Jantoven) 10 mg PO HS 02/11/21 04/07/21 History furosemide 20 mg tablet (Lasix) 20 mg PO DAILY #30 tab 03/14/21 04/07/21 Rx nintedanib 150 mg capsule (Ofev) 150 mg PO Q12H #60 cap 03/14/21 04/07/21 Rx Past Med/Surg History Medical History Abnormal CT scan, chest Abnormal CT scan, chest Acute hyperglycemia Acute left-sided muscle weakness CAD (coronary artery disease) Chest pain Chronic pulmonary aspiration Dehydration Diabetes Dyspnea on exertion Fall Fluid overload HLD (hyperlipidemia) Hypoxia Interstitial lung disease Interstitial lung disease Interstitial lung disease Interstitial lung disease due to connective tissue disease Lung nodule Neurogenic claudication Nocturnal hypoxemia Nocturnal hypoxia Palliative care encounter Polymyositis Polymyositis Polymyositis Prostate cancer s/p XRT Rheumatoid arthritis Rheumatoid arthritis Shortness of breath Stroke-like symptom 12/2019, w/ blurry vision and dysarthria. mild R sided wkness. attending outpatient physical therapy w/ good improvement in strength (5+/5 strength of all 4 extremities as of 05/28/20) Subtherapeutic international normalized ratio (INR) Supratherapeutic INR Thoracic ascending aortic aneurysm s/p repair Weakness Surgical History H/O hernia repair History of aortic valve replacement mechanical History of cholecystectomy History of fusion of cervical spine History of gastric bypass lap band History of heart artery stent History of lung biopsy 2019 History of partial nephrectomy Family History Mother , age 87 of pulmonary issues Rheumatoid arthritis Father , in his mid 80s of a stroke Stroke Other Coronary heart disease Social History Smoking Status: Never smoker Second Hand Exposure: No; Hx Alcohol Use: No Hx Substance Use: No Preferred Language: Liberian Communication Ability: Effective Hearing Ability: Hard of Hearing Gang Drill [employer] Operator Required: No Beliefs That Will Affect Care: None marital status: / Current Living Situation: Alone Current Living Situation Comment: Personal care comes in 3 times a week and son lives next door current occupational status: retired 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 How many Children do You have: 1 Feels Safe at Home: Yes Safety Concerns: Feels Safe At This Time Assistive Devices: Walker Review of Systems Review of Systems: Constitutional: denies fevers, night sweats, recent weight loss admits chills, nausea w/o vomiting Head: admits trauma Neurologic: denies slurring of speech, focal weakness ENT: admits rhinorrhea, sore throat, congestion Cardiac: denies chest pain, palpitations Pulm.: denies shortness of breath, hemoptysis, sputum production admits new dry cough on top of ILD related cough GI: denies constipation admits indigestion, diarrhea, dark stool : denies urgency, frequency dysuria Physical Exam Constitutional: well developed and well nourished; no acute distress Eyes: PERRL, conjunctivae normal, anicteric sclerae ENMT: - posterior oropharynx without redness or exudate - TM's bilaterally without erythema, bulging and with light reflex - no sig. anterior cervical LAD Neck: normal visual inspection Respiratory: normal respiratory effort, lungs clear to auscultation Cardiovascular: Rate/Rhythm: regular rate - clear crisp s1 s2 consistent with mechanical valve - no significant lower extremity edema Chest (Breasts): Additional Comments: - sternotomy scar Gastrointestinal (Abdomen): normal bowel sounds, soft, nontender, no hepatosplenomegaly Musculoskeletal: Left hip: - no swelling or bruising - tender to palpation over the greater trochanter - mild discomfort on log-roll, FADIR, TAYLOR although would consider equivocal as any movement causes him discomfort Skin: no rashes, warm and dry Neurologic: CN's II-XI intact bilaterally; no focal motor deficits Psychiatric: Orientation: alert and oriented x 3 Lymphatic: no cervical lymphadenopathy Results & Data Results & [facility] ([facility]) Vital Signs (Past 12 Hours) Vital Signs Temp Pulse Resp BP BP Pulse Ox 04/07/21 18:41 16 132/70 96 04/07/21 17:16 99 04/07/21 16:45 37.3 C 74 20 164/95 H 99 Code Status & VTE Plan VTE Prophylaxis Plan VTE Prophylaxis will be ordered: Yes (1) Fall Encounter type: initial encounter Qualified Code(s): W19.XXXA - Unspecified fall, initial encounter
[2021-04-07] MEDS ORDERED: CARBOHYDRATES FOR HYPOGLYCEMIA PO PRN (22:07)
[2021-04-07] MEDS ORDERED: GLUCOSE 40% GEL 15 GM TUBE PO PRN (22:07)
[2021-04-07] MEDS ORDERED: SODIUM CHLORIDE 0.9% 1000ML 1,000 ML IV SCH (22:07)
[2021-04-07] MEDS ORDERED: DEXTROSE 50% 50 ML SYRINGE IV PRN (22:07)
[2021-04-07] MEDS ORDERED: ALBUTEROL HFA 8 GM INHALER INH PRN (22:07)
[2021-04-07] MEDS ORDERED: NON-FORMULARY MEDICATION (Nintedanib [Ofev] 150 mg capsule) PO SCH (22:07)
[2021-04-07] MEDS ORDERED: GLUCOSE 10 TABS/TUBE PO PRN (22:07)
[2021-04-07] MEDS ORDERED: GLUCAGON FOR INJ 1 MG VIAL SQ PRN (22:07)
[2021-04-07] MEDS: GABAPENTIN 300 MG CAP PO SCH (23:01)
[2021-04-07] MEDS: levETIRAcetam 500 MG TAB PO SCH (23:01)
[2021-04-07] MEDS: CARBIDOPA/LEVODOPA 25/100MG TAB PO SCH (23:02)
[2021-04-07] MEDS: CALCIUM CARBONATE 1250MG TAB PO SCH (23:02)
[2021-04-07] MEDS: CHOLECALCIFEROL 1,000 UNITS 25 MCG TAB PO SCH (23:02)
[2021-04-07] MEDS: ATORVASTATIN 40 MG TAB PO SCH (23:03)
[2021-04-07] MEDS: TOPIRAMATE 100 MG TAB PO SCH (23:03)
[2021-04-07] MEDS: ACETAMINOPHEN 325 MG TAB PO PRN (23:08)
[2021-04-08] MEDS ORDERED: SODIUM CHLORIDE 0.9% 1000ML 500 ML IV ONE (05:19)
[2021-04-08 05:56] LABS: Appearance Urine Clear (Clear); Bilirubin Urine Negative (Negative); Blood Urine Negative (Negative); Color Urine Yellow; Glucose Urine UA Negative (Negative); Ketones Urine Negative (Negative); Leukocyte Esterase Urine Negative (Negative); Nitrite Urine Negative (Negative); Protein Urine Negative (Negative); Specific Gravity Urine 1.012 (1.000-1.030); Urobilinogen Urine Negative (Negative)
[2021-04-08] MEDS: TOPIRAMATE 100 MG TAB PO SCH ×2 (08:18→20:17)
[2021-04-08] MEDS: POTASSIUM CHLORIDE 10 MEQ TABCR PO SCH (08:18)
[2021-04-08] MEDS: ADVANCED PROBIOTIC 1250 MG CAPSULE PO SCH (08:19)
[2021-04-08] MEDS: predniSONE 10 MG TABLET PO SCH (08:19)
[2021-04-08] MEDS: FEXOFENADINE HCL 180 MG TAB PO SCH (08:19)
[2021-04-08] MEDS: ASPIRIN 81 MG ECTAB PO SCH (08:19)
[2021-04-08] MEDS: GABAPENTIN 300 MG CAP PO SCH ×2 (08:20→20:18)
[2021-04-08] MEDS: levETIRAcetam 500 MG TAB PO SCH ×2 (08:20→20:16)
[2021-04-08] MEDS: FLUTICASONE FUROATE 100MCG 14 PUFFS/INHALER INH SCH (08:20)
[2021-04-08] MEDS: CARBIDOPA/LEVODOPA 25/100MG TAB PO SCH ×3 (08:20→20:17)
[2021-04-08] MEDS: INSULIN GLARGINE SOLOSTAR 100 UNITS/ML 3 ML PEN SC SCH ×2 (08:21→20:55)
[2021-04-08] MEDS: INSULIN ASPART PER UNIT SC SCH ×4 (08:32→20:55)
[2021-04-08] MEDS: UMECLIDINIUM/VILANTEROL 62.5/25MCG 7 PUFFS/INHALER INH SCH (08:33)
[2021-04-08 09:07] LABS: INR 2.3 (0.9-1.1); Prothrombin Time 21.6 Seconds (9.0-12.0)
[2021-04-08 09:31] LABS: Estimated Average Glucose 174 mg/dl; Hemoglobin A1C 7.7 % (4.5-5.6)
[2021-04-08] MEDS: ACETAMINOPHEN 325 MG TAB PO PRN ×2 (09:36→19:33)
--- NOTE | 2021-04-08 14:51 | Electrocardiogram Report ---
Test Reason : Blood Pressure : / mmHG Vent. Rate : 070 BPM Atrial Rate : 070 BPM P-R Int : 144 ms QRS Dur : 086 ms QT Int : 424 ms P-R-T Axes : 024 012 104 degrees QTc Int : 457 ms Normal sinus rhythm Nonspecific T wave abnormality Abnormal ECG When compared with ECG of 11-FEB-2021 07:52, Premature atrial complexes are no longer Present Confirmed by Josh Vora ([id number]) on 04/08/2021 2:51:21 PM Referred By: REFERRED SELF Confirmed By:Josh Vora
--- NOTE | 2021-04-08 15:23 | Hospitalist Progress Note ---
Date of Service April 08, 2021 Assessment & Plan (1) Fall: Plan: 76 yo M w/ extensive mPHx. significant for nocturnal hypoxia, interstitial lung disease, polymyositis, RA, diabetes, Gout, TIA, Aspiration pna, mechanical heart valve on Coumadin, gastric bypass, and anemia presenting after being found down in his bathroom. 1. Fall CT head, cervical spine, face, a/p without acute findings CXR with no acute findings EKG without new findings Potentially mechanical (patient has a foot drop on his right side) vasovagal syncope given location in bathroom (situational), or secondary to dehydration from recent diarrhea and poor oral intake. Seizure less likely cause as patient has been seizure free for approximately 2 years, per patient. Patient also insists on his adherence to his antiseizure medication regimen, which would suggest a breakthrough seizure if this is in fact a seizure. Given his prolonged asymptomatic course thus far, this etiology is unlikely. Concerned that this is the 3rd fall over the last year. Patient lives alone and is on Warfarin. Would consider home situation and safety going forward * holding Warfarin (last dose evening of 04/06) * consider completing medication inventory prior to discharge * orthostatic vitals * PT consulted: Anticipated duration of treatment is 1 week; treatment plan involves therapeutic exercise, gait training, stairs, balance exercise, endurance, transfers, and patient training; will continue to monitor for signs of improvement * Consider OT evaluation in order to assess his home situation; talk to case management * Trend BMP, CBC 2. Hip pain, left Hip x-ray negative for signs of fx. Currently, likely etiology is soft tissue injury without signs of a hematoma * low threshold to CT if HGB drop or increased swelling or bruising * holding Warfarin for now 3. Mechanical heart valve * Holding warfarin * Trend CBC, INR; consider restarting if no drop in hemoglobin 4. Hx. of seizure * continue Keppra and Topamax 5. ILD no current shortness of breath * continue Trelegy * continue Prednisone 10mg (increased from chronic 5mg) 6. RA * continue Prednisone 10mg 7. Parkinsonism * continue Sinemet 8. Type 2 diabetes mellitus * SSI * long acting decreased during hospitalization 9. CAD * continue ASA, Statin DVT: holding Warfarin Code: full code Diet: DMII Admission and Anticipated Discharge Date Admission Date: April 07, 2021 Supervising Physician Co-Signing Physician Notes I personally examined the patient and verified all peña points of history and exam, discussed case, and agree with decision making with Dr Waller Does not really remember incident, although he notes that he did hit his head. Vitals noted, in general he is awake and alert pleasant no distress. HEENT normocephalic atraumatic no bruising where he notes that he had. Mucous membranes moist. Breathing unlabored no accessory muscle use good effort. Skin shows no rashes no pallor or icterus. Falls and weaknesswhile he does not remember the incident, I do not harbor great concern of arrhythmia. Is continued to be followed in hospital, however appears most likely he is just getting weaker and deconditionedcontinue to follow, continue to follow clinically, however PT/OT eval and treat, and anticipate need for SNF/rehab otherwise as above, scd for dvt proph for now Subjective Patient is asleep in bed this morning. He corroborates the majority of the story told on admission. Specifically, he cannot recall anything that happened after breakfast, which he remembers having with his son. Otherwise, he has no subjective complaints today. Review of Systems Constitutional: as per Subjective / HPI Physical Exam Constitutional: WD/WN, vitals as above Eyes: PERRL, conjunctivae normal, anicteric sclerae Respiratory: normal respiratory effort, lungs clear to auscultation Cardiovascular: RRR, no murmur, no edema Gastrointestinal (Abdomen): normal bowel sounds, soft, nontender, no hepatosplenomegaly Musculoskeletal: Hip: + joint line tenderness and + log roll test positive (Passive straight leg test negative bilaterally); no effusion, no skin erythema and no ecchymosis Hip: Compression test at the knee positive for moderate tenderness at the hip on the left side; sacroiliac compression test also positive for moderate tenderness at the hip, also on the left. Results & Data Results & Data ([facility]) Vital Signs (Past 12 Hours) Vital Signs Temp Pulse Resp BP Pulse Ox 04/08/21 15:03 36.5 C 62 20 104/61 95 04/08/21 11:55 95 04/08/21 11:26 36.7 C 63 20 106/58 L 96 04/08/21 07:51 36.5 C 72 20 92/57 L 96 04/08/21 04:00 36.3 C L 90 18 98/60 L 98 Resident Activity Tracking Resident Involvement: Resident Care Provided Care Provided: Adult Hospital Medicine (1) Fall Encounter type: initial encounter Qualified Code(s): W19.XXXA - Unspecified fall, initial encounter
--- NOTE | 2021-04-08 17:27 | Billing Data ---
Date of Service April 08, 2021 Coding Level of Care Code 62426 Subseq Obs Care Lvl 2
--- NOTE | 2021-04-08 20:12 | Billing Data ---
Date of Service April 08, 2021 Coding Level of Care Code INT OBSERVATION CARE 70M LVL 3
[2021-04-08] MEDS: ATORVASTATIN 40 MG TAB PO SCH (20:17)
[2021-04-08] MEDS: CALCIUM CARBONATE 1250MG TAB PO SCH (20:17)
[2021-04-08] MEDS: CHOLECALCIFEROL 1,000 UNITS 25 MCG TAB PO SCH (20:18)
[2021-04-09] MEDS: INSULIN ASPART PER UNIT SC SCH ×4 (08:37→21:46)
[2021-04-09] MEDS: INSULIN GLARGINE SOLOSTAR 100 UNITS/ML 3 ML PEN SC SCH ×2 (08:39→21:45)
[2021-04-09] MEDS: TOPIRAMATE 100 MG TAB PO SCH ×2 (08:40→21:09)
[2021-04-09] MEDS: FLUTICASONE FUROATE 100MCG 14 PUFFS/INHALER INH SCH (08:40)
[2021-04-09] MEDS: POTASSIUM CHLORIDE 10 MEQ TABCR PO SCH (08:40)
[2021-04-09] MEDS: levETIRAcetam 500 MG TAB PO SCH ×2 (08:40→21:10)
[2021-04-09] MEDS: predniSONE 10 MG TABLET PO SCH (08:40)
[2021-04-09] MEDS: CARBIDOPA/LEVODOPA 25/100MG TAB PO SCH ×3 (08:40→21:09)
[2021-04-09] MEDS: FEXOFENADINE HCL 180 MG TAB PO SCH (08:40)
[2021-04-09] MEDS: ADVANCED PROBIOTIC 1250 MG CAPSULE PO SCH (08:40)
[2021-04-09] MEDS: GABAPENTIN 300 MG CAP PO SCH ×2 (08:40→21:09)
[2021-04-09] MEDS: ASPIRIN 81 MG ECTAB PO SCH (08:40)
[2021-04-09] MEDS: UMECLIDINIUM/VILANTEROL 62.5/25MCG 7 PUFFS/INHALER INH SCH (08:41)
[2021-04-09] MEDS: ACETAMINOPHEN 325 MG TAB PO PRN ×2 (10:21→23:18)
[2021-04-09 10:57] LABS: Basophils # (auto) 0.01 K/uL (0-0.2); Basophils % (auto) 0.2 %; Eosinophils # (auto) 0.11 K/uL (0-0.5); Eosinophils % (auto) 2.7 %; Hematocrit (blood only) 30.8 % (42-52); Hemoglobin 9.4 g/dL (14.0-18.0); Immature Granulocytes # (auto) 0.04 K/uL (0.00-0.02); Lymphocytes # (auto) 0.62 K/uL (1.2-3.4); Lymphocytes % (auto) 15.2 %; Mean Corpuscular Hemoglobin 25.7 pg (25-34); Mean Corpuscular Hgb Conc 30.5 g/dL (32-36); Mean Corpuscular Volume 84.2 fL (80-100); Mean Platelet Volume 9.2 fL (7.4-10.4); Monocytes # (auto) 0.24 K/uL (0.11-0.59); Monocytes % (auto) 5.9 %; Neutrophils # (auto) 3.05 K/uL (1.4-6.5); Platelet Count 149 K/uL (130-400); RDW Standard Deviation 49.2 fL (36.4-46.3); Red Blood Count 3.66 M/uL (4.7-6.1); White Blood Count 4.07 K/uL (4.8-10.8)
[2021-04-09 11:07] LABS: INR 1.5 (0.9-1.1); Prothrombin Time 15.1 Seconds (9.0-12.0)
--- NOTE | 2021-04-09 11:51 | CT Scan Report ---
CT head/brain wo con CLINICAL HISTORY: Recent fall with head pain. Reevaluation for brain bleed COMPARISON STUDY: 04/07/2021 CT DOSE: 537.48 mGy.cm TECHNIQUE: Standard CT of the Brain was performed without IV contrast. A dose lowering technique was utilized adhering to the principles of ALARA. FINDINGS: Extraaxial space: There is no evidence for subdural hematoma. There are no extra-axial fluid collecti ons. Ventricles and cisterns: The ventricles are normal in size and configuration. There is no evidence f or midline shift or mass effect. Parenchyma: There is no subarachnoid or intraparenchymal hemorrhage. There is no evidence for an acu te infarct or cerebral edema. There is again mild cerebral cortical atrophy and decreased attenuation in the periventricular white matter representing remote small vessel disease. There are no gross mas s lesions. Osseous structures: There is no evidence for an acute fracture. The visualized paranasal sinuses are clear. The mastoid air cells are clear bilaterally. Soft tissues: There is no evidence for focal soft tissue swelling. IMPRESSION: No acute intracerebral pathology. Mild cerebral cortical atrophy and remote small vessel disease are again seen. ACT 112: Negative or not required by law. Electronically signed by: Trent Ken M.D. 04/09/2021 11:49 AM
[2021-04-09] MEDS: WARFARIN SOD 10 MG TAB PO SCH (15:59)
--- NOTE | 2021-04-09 18:33 | Hospitalist Progress Note ---
Date of Service April 09, 2021 Assessment & Plan (1) Fall: Plan: 76 yo M w/ extensive mPHx. significant for nocturnal hypoxia, interstitial lung disease, polymyositis, RA, diabetes, Gout, TIA, Aspiration pna, mechanical heart valve on Coumadin, gastric bypass, and anemia presenting after being found down in his bathroom. 1. Fall CT head, cervical spine, face, a/p without acute findings CXR with no acute findings EKG without new findings Potentially mechanical (patient has a foot drop on his right side) vasovagal syncope given location in bathroom (situational), or secondary to dehydration from recent diarrhea and poor oral intake. Seizure less likely cause as patient has been seizure free for approximately 2 years, per patient. Patient also insists on his adherence to his antiseizure medication regimen, which would suggest a breakthrough seizure if this is in fact a seizure. Given his prolonged asymptomatic course thus far, this etiology is unlikely. Concerned that this is the 3rd fall over the last year. Patient lives alone and is on Warfarin. Would consider home situation and safety going forward * Restarted home warfarin after CT had this morning was negative * orthostatic vitals ordered * PT consulted: Anticipated duration of treatment is 1 week; treatment plan involves therapeutic exercise, gait training, stairs, balance exercise, endurance, transfers, and patient training; will continue to monitor for signs of improvement * Continue to trend BMP, CBC * Despite PT recommendation that patient be discharged to rehab facility/SNF, patient is hesitant as he fears he might contract COVID-19. Spoke to his son, who is in agreement with PT recommendations. However, son recognizes that his father has final say. * Patient is open to home physical therapy as an alternative; case management consulted. Awaiting update. 2. Hip pain, left Hip x-ray negative for signs of fx. Currently, likely etiology is soft tissue injury without signs of a hematoma * low threshold to CT if HGB drop or increased swelling or bruising * Restarted warfarin, continue to monitor for signs of hematoma 3. Mechanical heart valve * Restarted home warfarin see above 4. Hx. of seizure * continue Keppra and Topamax 5. ILD no current shortness of breath * continue Trelegy * continue Prednisone 10mg (increased from chronic 5mg) 6. RA * continue Prednisone 10mg 7. Parkinsonism * continue Sinemet 8. Type 2 diabetes mellitus * SSI * long acting decreased during hospitalization 9. CAD * continue ASA, Statin DVT: Warfarin Code: full code Diet: DMII Disposition-continued stay, but possible discharge home tomorrow with home health Admission and Anticipated Discharge Date Admission Date: April 09, 2021 Supervising Physician Co-Signing Physician Notes I personally examined the patient and verified all peña points of history and exam, discussed case, and agree with decision making with Dr. Waller with the following additions/exceptions: Patient reports still feels a little bit "fuzzy" and does not remember the name of the hospital or where he is. He does have a mild headache at times in the left frontal region. He otherwise is eating and drinking, denies lightheadedness. Does not remember falling but thinks that it was from his dropfoot on the right. He does recall that he woke up and was face down on the floor. Vitals reviewed Gen: Alert, awake, oriented to person and "hospital" but cannot remember name of hospital, town, or state, NAD HEENT: Anicteric sclerae, EOMI, PERRLA CV: RRR no mgr nl S1S2 Pulm: CTAB no wcr Abd: +BS soft NT ND no masses or hernias Ext: No edema Skin: No rashes, warm/dry Neuro: Full strength throughout CT head images personally reviewed by me-no hemorrhage 76-year-old male here with syncope versus fall with head trauma and loss of consciousness Still with some mild concussive symptoms most likely Repeat CT head performed today due to mild alteration mental status in the setting of being on warfarin-no intracranial hemorrhage noted Continued stay Check orthostatics-discussed with nursing Continue PT/OT, patient is agreeable to home health Restart warfarin now that intracranial hemorrhage is ruled out With hyperglycemia-increase Lantus to 20 units twice a day which is home dose Subjective Patient is asleep in bed comfortably this morning. He has some concerns about his short-term memory loss as well as his orientation, which he believes is declining. When asked where he is, he knows that he is in the hospital. However, he does not know which hospital. He was able to answer correctly when asked about today's date, but only after looking at the board. Review of Systems Review of Systems: All systems reviewed & are unremarkable except as noted in HPI & below Physical Exam Constitutional: WD/WN, vitals as above Eyes: PERRL, conjunctivae normal, anicteric sclerae Respiratory: normal respiratory effort, lungs clear to auscultation Cardiovascular: RRR, no murmur, no edema Gastrointestinal (Abdomen): normal bowel sounds, soft, nontender, no hepatosplenomegaly Psychiatric: Orientation: alert, oriented to person, oriented to time and cooperative Results & Data Results & Data ([facility]) Vital Signs (Past 12 Hours) Vital Signs Temp Pulse Pulse Resp BP Pulse Ox 04/09/21 16:11 82 04/09/21 15:47 36.7 C 66 18 118/69 90 04/09/21 10:58 36.7 C 64 20 126/72 97 04/09/21 10:12 57 L 04/09/21 07:25 36.4 C L 62 16 121/71 98 Laboratory Results 04/09/21 04/09/21 04/09/21 Range/Units 16:31 16:31 11:33 WBC (4.8-10.8) K/uL RBC (4.7-6.1) M/uL Hgb (14.0-18.0) g/dL Hct (42-52) % MCV (80-100) fL MCH (25-34) pg MCHC (32-36) g/dL RDW Std Deviation (36.4-46.3) fL RDW Coeff of Lianne (11.5-14.5) % Plt Count (130-400) K/uL MPV (7.4-10.4) fL Immature Gran % (Auto) % Neut % (Auto) % Lymph % (Auto) % [place] % (Auto) % Eos % (Auto) % Baso % (Auto) % Neut # (Auto) (1.4-6.5) K/uL Lymph # (Auto) (1.2-3.4) K/uL [place] # (Auto) (0.11-0.59) K/uL Eos # (Auto) (0-0.5) K/uL Baso # (Auto) (0-0.2) K/uL Immature Gran # (Auto) (0.00-0.02) K/uL PT (9.0-12.0) Seconds INR (0.9-1.1) POC Glucose 279 H 303 H* 232 H (70-99) mg/dl 04/09/21 04/09/21 04/09/21 Range/Units 10:41 10:41 07:46 WBC 4.07 L (4.8-10.8) K/uL RBC 3.66 L (4.7-6.1) M/uL Hgb 9.4 L (14.0-18.0) g/dL Hct 30.8 L (42-52) % MCV 84.2 (80-100) fL MCH 25.7 (25-34) pg MCHC 30.5 L (32-36) g/dL RDW Std Deviation 49.2 H (36.4-46.3) fL RDW Coeff of Lianne 16.0 H (11.5-14.5) % Plt Count 149 (130-400) K/uL MPV 9.2 (7.4-10.4) fL Immature Gran % (Auto) 1.0 % Neut % (Auto) 75.0 % Lymph % (Auto) 15.2 % [place] % (Auto) 5.9 % Eos % (Auto) 2.7 % Baso % (Auto) 0.2 % Neut # (Auto) 3.05 (1.4-6.5) K/uL Lymph # (Auto) 0.62 L (1.2-3.4) K/uL [place] # (Auto) 0.24 (0.11-0.59) K/uL Eos # (Auto) 0.11 (0-0.5) K/uL Baso # (Auto) 0.01 (0-0.2) K/uL Immature Gran # (Auto) 0.04 H (0.00-0.02) K/uL PT 15.1 H (9.0-12.0) Seconds INR 1.5 H (0.9-1.1) POC Glucose 162 H (70-99) mg/dl 04/08/21 Range/Units 20:03 WBC (4.8-10.8) K/uL RBC (4.7-6.1) M/uL Hgb (14.0-18.0) g/dL Hct (42-52) % MCV (80-100) fL MCH (25-34) pg MCHC (32-36) g/dL RDW Std Deviation (36.4-46.3) fL RDW Coeff of Lianne (11.5-14.5) % Plt Count (130-400) K/uL MPV (7.4-10.4) fL Immature Gran % (Auto) % Neut % (Auto) % Lymph % (Auto) % [place] % (Auto) % Eos % (Auto) % Baso % (Auto) % Neut # (Auto) (1.4-6.5) K/uL Lymph # (Auto) (1.2-3.4) K/uL [place] # (Auto) (0.11-0.59) K/uL Eos # (Auto) (0-0.5) K/uL Baso # (Auto) (0-0.2) K/uL Immature Gran # (Auto) (0.00-0.02) K/uL PT (9.0-12.0) Seconds INR (0.9-1.1) POC Glucose 234 H (70-99) mg/dl Resident Activity Tracking Resident Involvement: Resident Care Provided Care Provided: Adult Hospital Medicine (1) Fall Encounter type: initial encounter Qualified Code(s): W19.XXXA - Unspecified fall, initial encounter
--- NOTE | 2021-04-09 19:58 | Billing Data ---
Date of Service April 09, 2021 Coding Level of Care Code 16706 Subseq Hosp Care Lvl 2
[2021-04-09] MEDS: ATORVASTATIN 40 MG TAB PO SCH (21:10)
[2021-04-09] MEDS: CHOLECALCIFEROL 1,000 UNITS 25 MCG TAB PO SCH (21:10)
[2021-04-09] MEDS: CALCIUM CARBONATE 1250MG TAB PO SCH (21:12)
[2021-04-10 06:42] LABS: Basophils # (auto) 0.01 K/uL (0-0.2); Basophils % (auto) 0.3 %; Eosinophils # (auto) 0.11 K/uL (0-0.5); Eosinophils % (auto) 2.8 %; Hematocrit (blood only) 29.9 % (42-52); Immature Granulocytes # (auto) 0.04 K/uL (0.00-0.02); Lymphocytes # (auto) 0.85 K/uL (1.2-3.4); Mean Corpuscular Hemoglobin 25.3 pg (25-34); Mean Corpuscular Hgb Conc 30.1 g/dL (32-36); Mean Platelet Volume 10.1 fL (7.4-10.4); Monocytes # (auto) 0.19 K/uL (0.11-0.59); Monocytes % (auto) 4.9 %; Neutrophils # (auto) 2.66 K/uL (1.4-6.5); Platelet Count 154 K/uL (130-400); RDW Coefficient of Variation 15.9 % (11.5-14.5); RDW Standard Deviation 48.7 fL (36.4-46.3); Red Blood Count 3.56 M/uL (4.7-6.1); White Blood Count 3.86 K/uL (4.8-10.8)
[2021-04-10] MEDS: ACETAMINOPHEN 325 MG TAB PO PRN (07:29)
[2021-04-10] MEDS: FLUTICASONE FUROATE 100MCG 14 PUFFS/INHALER INH SCH (07:29)
[2021-04-10 07:30] LABS: INR 1.4 (0.9-1.1); Prothrombin Time 14.2 Seconds (9.0-12.0)
[2021-04-10] MEDS: CARBIDOPA/LEVODOPA 25/100MG TAB PO SCH ×3 (07:30→21:05)
[2021-04-10] MEDS: UMECLIDINIUM/VILANTEROL 62.5/25MCG 7 PUFFS/INHALER INH SCH (07:30)
[2021-04-10] MEDS: TOPIRAMATE 100 MG TAB PO SCH ×2 (07:31→21:07)
[2021-04-10] MEDS: ADVANCED PROBIOTIC 1250 MG CAPSULE PO SCH (07:31)
[2021-04-10] MEDS: FEXOFENADINE HCL 180 MG TAB PO SCH (07:31)
[2021-04-10] MEDS: POTASSIUM CHLORIDE 10 MEQ TABCR PO SCH (07:31)
[2021-04-10] MEDS: levETIRAcetam 500 MG TAB PO SCH ×2 (07:31→21:05)
[2021-04-10] MEDS: predniSONE 10 MG TABLET PO SCH (07:31)
[2021-04-10] MEDS: GABAPENTIN 300 MG CAP PO SCH ×2 (07:31→21:05)
[2021-04-10] MEDS: ASPIRIN 81 MG ECTAB PO SCH (07:31)
[2021-04-10] MEDS: INSULIN GLARGINE SOLOSTAR 100 UNITS/ML 3 ML PEN SC SCH ×2 (09:54→21:04)
[2021-04-10] MEDS: INSULIN ASPART PER UNIT SC SCH ×4 (09:57→21:11)
--- NOTE | 2021-04-10 09:59 | Hospitalist Progress Note ---
Date of Service April 10, 2021 Assessment & Plan (1) Fall: Plan: 76 yo M w/ extensive mPHx. significant for nocturnal hypoxia, interstitial lung disease, polymyositis, RA, diabetes, Gout, TIA, Aspiration pna, mechanical heart valve on Coumadin, gastric bypass, and anemia presenting after being found down in his bathroom. 1. Fall CT head, cervical spine, face, a/p without acute findings CXR with no acute findings EKG without new findings Potentially mechanical (patient has a foot drop on his right side) vasovagal syncope given location in bathroom (situational), or secondary to dehydration from recent diarrhea and poor oral intake. Seizure less likely cause as patient has been seizure free for approximately 2 years, per patient. Patient also insists on his adherence to his antiseizure medication regimen, which would suggest a breakthrough seizure if this is in fact a seizure. Given his prolonged asymptomatic course thus far, this etiology is unlikely. Concerned that this is the 3rd fall over the last year. Patient lives alone and is on Warfarin. Would consider home situation and safety going forward * Increase warfarin dose to 15 mg today, held regular warfarin 10 mg dose will restart tomorrow * Started Lovenox bridge at full therapeutic dose 1 mg/kg every 12 hours * Trend PT/INR * PT consulted: See previous note 04/09/21 * Continue to trend BMP, CBC * Patient would like to have his orthotic shoe brought to the hospital in order to practice his gait with physical therapy ([facility], Andrea cisse); will reach out to tomorrow * Patient is open to home physical therapy as an alternative; case management consulted. Awaiting update. 2. Hip pain, left Hip x-ray negative for signs of fx. Currently, likely etiology is soft tissue injury without signs of a hematoma * low threshold to CT if HGB drop or increased swelling or bruising 3. Mechanical heart valve * Restarted home warfarin, Lovenox bridge. See above 4. Hx. of seizure * continue Keppra and Topamax 5. ILD no current shortness of breath * continue Trelegy * continue Prednisone 10mg (increased from chronic 5mg) 6. RA * continue Prednisone 10mg 7. Parkinsonism * continue Sinemet 8. Type 2 diabetes mellitus * SSI * long acting decreased during hospitalization 9. CAD * continue ASA, Statin DVT: Warfarin 15 mg today (return to 10 mg tomorrow) plus Lovenox bridge 1 mg/kg every 12 hours Code: full code Diet: DMII Admission and Anticipated Discharge Date Admission Date: April 09, 2021 Supervising Physician Co-Signing Physician Notes I personally examined the patient and verified all peña points of history and exam, discussed case, and agree with decision making with Dr. Waller with the following additions/exceptions: Patient reports feeling better today. Still has a mild left frontal headache and some left eye blurry vision. Does not feel like his memory is poor anymore and states "I now now that I am in [place] and then in [place]." It is odd that he remembers that yesterday he did not know those things. He reports feeling anxious to go home because he lives alone and is afraid he will fall again. Wants to know if his new orthotic brace for his foot drop can be delivered to the hospital and try it out before going home. Vitals reviewed Gen: Alert, awake, oriented x3 HEENT: Anicteric sclerae, EOMI, PERRLA CV: RRR no mgr nl S1S2 Pulm: CTAB no wcr Abd: +BS soft NT ND no masses or hernias Ext: No edema Skin: No rashes, warm/dry Neuro: Full strength throughout CT head images personally reviewed by me-no hemorrhage 76-year-old male here with syncope versus fall with head trauma and loss of consciousness Orthostatics are negative Still with some mild concussive symptoms most likely With blurry vision on the left mild headache-recommended follow-up with ophthalmology or optometry after discharge Repeat CT head performed after admission due to mild alteration mental status in the setting of being on warfarin-no intracranial hemorrhage noted Continued stay, await delivery of orthotic and repeat PT/OT evaluation, but most likely can be discharged home tomorrow Bridging with Lovenox and increased dose of Coumadin today Follow INR in the morning Review of Systems Constitutional: as per Subjective / HPI Physical Exam Constitutional: WD/WN, vitals as above Eyes: PERRL, conjunctivae normal, anicteric sclerae Respiratory: normal respiratory effort, lungs clear to auscultation Cardiovascular: RRR, no murmur, no edema Heart Sounds: + click Gastrointestinal (Abdomen): normal bowel sounds, soft, nontender, no hepatosplenomegaly Musculoskeletal: Hip: + joint line tenderness and + log roll test positive (Passive straight leg test negative bilaterally); no effusion, no skin erythema and no ecchymosis Psychiatric: Orientation: alert, oriented to person, oriented to time and cooperative Results & Data Results & Data ([facility]) Vital Signs (Past 12 Hours) Vital Signs Temp Pulse Resp BP BP Pulse Ox 04/10/21 07:03 36.7 C 63 16 122/69 97 04/09/21 23:03 36.8 C 64 18 134/66 95 Resident Activity Tracking Resident Involvement: Resident Care Provided Care Provided: Adult Hospital Medicine (1) Fall Encounter type: initial encounter Qualified Code(s): W19.XXXA - Unspecified fall, initial encounter
[2021-04-10] MEDS ORDERED: WARFARIN SOD 7.5 MG TAB PO ONE ×2 (13:24→16:00)
[2021-04-10] MEDS: ENOXAPARIN 100 MG/1ML SYR SQ SCH (14:51)
[2021-04-10] MEDS ORDERED: POLYETHYLENE (MIRALAX) 17 GM PACK PO PRN (16:41)
[2021-04-10] MEDS: ATORVASTATIN 40 MG TAB PO SCH (21:05)
[2021-04-10] MEDS: CALCIUM CARBONATE 1250MG TAB PO SCH (21:05)
[2021-04-10] MEDS: CHOLECALCIFEROL 1,000 UNITS 25 MCG TAB PO SCH (21:05)
[2021-04-10] MEDS ORDERED: guaiFENesin 600 MG TABCR PO ONE (21:31)
[2021-04-10] MEDS ORDERED: allopurinoL 100 MG TAB PO SCH (22:21)
--- NOTE | 2021-04-10 22:45 | Billing Data ---
Date of Service April 10, 2021 Coding Level of Care Code 31728 Subseq Hosp Care Lvl 2
[2021-04-11] MEDS: ENOXAPARIN 100 MG/1ML SYR SQ SCH ×2 (01:53→13:22)
[2021-04-11 07:02] LABS: Basophils # (auto) 0.01 K/uL (0-0.2); Basophils % (auto) 0.2 %; Eosinophils # (auto) 0.11 K/uL (0-0.5); Eosinophils % (auto) 2.7 %; Hematocrit (blood only) 33.4 % (42-52); Hemoglobin 10.1 g/dL (14.0-18.0); Immature Granulocytes # (auto) 0.04 K/uL (0.00-0.02); Lymphocytes # (auto) 0.87 K/uL (1.2-3.4); Lymphocytes % (auto) 21.6 %; Mean Corpuscular Hemoglobin 25.1 pg (25-34); Mean Corpuscular Hgb Conc 30.2 g/dL (32-36); Mean Corpuscular Volume 82.9 fL (80-100); Mean Platelet Volume 9.5 fL (7.4-10.4); Monocytes # (auto) 0.27 K/uL (0.11-0.59); Monocytes % (auto) 6.7 %; Neutrophils # (auto) 2.72 K/uL (1.4-6.5); Neutrophils % (auto) 67.8 %; Platelet Count 157 K/uL (130-400); RDW Coefficient of Variation 15.9 % (11.5-14.5); RDW Standard Deviation 48.2 fL (36.4-46.3); Red Blood Count 4.03 M/uL (4.7-6.1); White Blood Count 4.02 K/uL (4.8-10.8)
[2021-04-11 07:21] LABS: BUN Creatinine Ratio 23.3 (10-20); Calcium 9.7 mg/dl (8.5-10.1); Creatinine Clr Calc Pharmacy 70.4 ml/min; Est GFR (African American) 74.4 ml/min; Est GFR (Non-African American) 64.2 ml/min; Potassium 3.6 mmol/L (3.5-5.1)
[2021-04-11 07:29] LABS: INR 1.9 (0.9-1.1); Prothrombin Time 18.4 Seconds (9.0-12.0)
--- NOTE | 2021-04-11 08:50 | Hospitalist Progress Note ---
Date of Service April 11, 2021 Assessment & Plan (1) Fall: Plan: 76 yo M w/ extensive mPHx. significant for nocturnal hypoxia, interstitial lung disease, polymyositis, RA, diabetes, Gout, TIA, Aspiration pna, mechanical heart valve on Coumadin, gastric bypass, and anemia presenting after being found down in his bathroom. 1. Fall CT head, cervical spine, face, a/p without acute findings CXR with no acute findings EKG without new findings Potentially mechanical (patient has a foot drop on his right side) vasovagal syncope given location in bathroom (situational), or secondary to dehydration from recent diarrhea and poor oral intake. Seizure less likely cause as patient has been seizure free for approximately 2 years, per patient. Patient also insists on his adherence to his antiseizure medication regimen, which would suggest a breakthrough seizure if this is in fact a seizure. Given his prolonged asymptomatic course thus far, this etiology is unlikely. Concerned that this is the 3rd fall over the last year. Patient lives alone and is on Warfarin. Would consider home situation and safety going forward * Increase warfarin dose to 15 mg today, held regular warfarin 10 mg dose will restart tomorrow * Started Lovenox bridge at full therapeutic dose 1 mg/kg every 12 hours * Trend PT/INR * PT consulted: See previous note 04/09/21 * Continue to trend BMP, CBC * Patient would like to have his orthotic shoe brought to the hospital in order to practice his gait with physical therapy ([facility], Andrea cisse); will reach out to tomorrow * Patient is open to home physical therapy as an alternative; case management consulted. Awaiting update. 2. Hip pain, left Hip x-ray negative for signs of fx. Currently, likely etiology is soft tissue injury without signs of a hematoma * low threshold to CT if HGB drop or increased swelling or bruising 3. Mechanical heart valve * Restarted home warfarin, Lovenox bridge. See above 4. Hx. of seizure * continue Keppra and Topamax 5. ILD no current shortness of breath * continue Trelegy * continue Prednisone 10mg (increased from chronic 5mg) 6. RA * continue Prednisone 10mg 7. Parkinsonism * continue Sinemet 8. Type 2 diabetes mellitus * SSI * long acting decreased during hospitalization 9. CAD * continue ASA, Statin DVT: Warfarin 15 mg today (return to 10 mg tomorrow) plus Lovenox bridge 1 mg/kg every 12 hours Code: full code Diet: DMII Admission and Anticipated Discharge Date Admission Date: April 09, 2021 Results & Data Results & Data ([facility]) Vital Signs (Past 12 Hours) Vital Signs Temp Pulse Resp BP Pulse Ox 04/11/21 07:13 36.5 C 66 18 119/72 95 04/10/21 23:07 36.3 C L 65 16 131/78 97 (1) Fall Encounter type: initial encounter Qualified Code(s): W19.XXXA - Unspecified fall, initial encounter
[2021-04-11] MEDS ORDERED: FUROSEMIDE 20 MG TAB PO SCH (09:00)
[2021-04-11] MEDS: levETIRAcetam 500 MG TAB PO SCH (09:25)
[2021-04-11] MEDS: CARBIDOPA/LEVODOPA 25/100MG TAB PO SCH ×2 (09:26→13:23)
[2021-04-11] MEDS: FEXOFENADINE HCL 180 MG TAB PO SCH (09:26)
[2021-04-11] MEDS: ADVANCED PROBIOTIC 1250 MG CAPSULE PO SCH (09:26)
[2021-04-11] MEDS: ASPIRIN 81 MG ECTAB PO SCH (09:26)
[2021-04-11] MEDS: UMECLIDINIUM/VILANTEROL 62.5/25MCG 7 PUFFS/INHALER INH SCH (09:27)
[2021-04-11] MEDS: GABAPENTIN 300 MG CAP PO SCH (09:27)
[2021-04-11] MEDS: predniSONE 10 MG TABLET PO SCH (09:27)
[2021-04-11] MEDS: TOPIRAMATE 100 MG TAB PO SCH (09:27)
[2021-04-11] MEDS: INSULIN GLARGINE SOLOSTAR 100 UNITS/ML 3 ML PEN SC SCH (09:28)
[2021-04-11] MEDS: FLUTICASONE FUROATE 100MCG 14 PUFFS/INHALER INH SCH (09:28)
[2021-04-11] MEDS: INSULIN ASPART PER UNIT SC SCH ×3 (09:33→17:56)
[2021-04-11] MEDS: POTASSIUM CHLORIDE 10 MEQ TABCR PO SCH (09:34)
--- NOTE | 2021-04-11 16:43 | Discharge Summary ---
Date of Service April 11, 2021 Admission HPI Per Admitting Provider Xavi Bradford has a extensive past medical history of nocturnal hypoxia, interstitial lung disease, polymyositis, RA, diabetes, Gout, TIA, Aspiration pna, mechanical heart valve on Coumadin, gastric bypass, and anemia. He is coming in after a fall at home. The fall occurred some time after lunch. He does not remember the fall. When asked about the events he states, "I don't know and can't remember much". He just remembers being on the floor. He did take his medications last this morning 04/07. He brought up that he has right foot drop and may have fallen and hit the right side of his face. He was not in the ower. He had left hip/groin pain since that he describes as mild soreness. He has a history of SI joint dyfunction and prior spine surgery but this pain is different in the location. He has been having some diarrhea/increased bowel frequency over the last 3 days with 4-5 bowel movements in the last 3 day. He has had some dark stool. He has had rhinorrhea, congestion, sore throat and cough. increased RA symptoms and rheumatology increased his steroids 2 weeks ago with the plan of a taper of 20 mg prednisone for 7 days 15 mg prednisone for 7 days and 10 mg prednisone for 7 days and potentially going forward after talking with his PCP Dr. Gaspar with [facility]. Admission Exam Per Admitting Provider Constitutional: well developed and well nourished; no acute distress Eyes: PERRL, conjunctivae normal, anicteric sclerae ENMT: - posterior oropharynx without redness o r exudate - TM's bilaterally without erythema, bul ging and with light reflex - no sig. anterior cervical LAD Neck: normal visual inspection Respiratory: normal respiratory effort, lungs clear to auscultation Cardiovascular: Rate/Rhythm: regular rate - clear crisp s1 s2 consistent with mechanical valve - no significant lower extremity edema Chest (Breasts): Additional Comments: - sternotomy scar Gastrointestinal (Abdomen): normal bowel sounds, soft, nontender, no hepatosplenomegaly Musculoskeletal: Left hip: - no swelling or bruising - tender to palpation over the greater t rochanter - mild discomfort on log-roll, FADIR, FA HAYLEE although would consider equivocal as any movement causes him discomfort Skin: no rashes, warm and dry Neurologic: CN's II-XI intact bilaterally; no focal motor deficits Psychiatric: Orientation: alert and oriented x 3 Lymphatic: no cervical lymphadenopathy Principal Diagnosis Fall Discharge Exam Constitutional WD/WN, vitals as above Eyes PERRL, conjunctivae normal, anicteric sclerae Respiratory normal respiratory effort, lungs clear to auscultation Cardiovascular RRR, no murmur, no edema Gastrointestinal (Abdomen) normal bowel sounds, soft, nontender, no hepatosplenomegaly Musculoskeletal Hip: hip normal to inspection and no joint line tenderness Neurologic PERRL, EOMI, accommodation nl, no face palsy, no dysarthria Discharge Data Allergies Allergy/AdvReac Type Severity Reaction Status Date / Time Iodinated Contrast Media Allergy Severe Anaphylaxis Verified 04/07/21 19:43 shellfish derived Allergy Severe Anaphylaxis Verified 04/07/21 19:43 tamsulosin [From Flomax] Allergy Intermediate Itching Unverified 04/07/21 19:43 Tetanus Vaccines and Toxoid Allergy Unknown Unknown Verified 04/07/21 19:43 Consultations 04/07/21 20:27 ED Decision to Admit Stat Ordered Studies 04/07/21 16:46 CT abd pelvis wo con Stat CT cervical spine wo con Stat CT facial bones wo con Stat CT head/brain wo con Stat 04/09/21 10:28 CT head/brain wo con Routine Hospital Course (1) Fall: 76 yo M w/ extensive mPHx. significant for nocturnal hypoxia, interstitial lung disease, polymyositis, RA, diabetes, Gout, TIA, Aspiration pna, mechanical heart valve on Coumadin, gastric bypass, and anemia presenting after being found down in his bathroom. 1. Fall CT head, cervical spine, face, a/p without acute findings CXR with no acute findings EKG without new findings Potentially mechanical (patient has a foot drop on his right side) vasovagal syncope given location in bathroom (situational), or secondary to dehydration from recent diarrhea and poor oral intake. Seizure less likely cause as patient has been seizure free for approximately 2 years, per patient. Patient also insists on his adherence to his antiseizure medication regimen, which would suggest a breakthrough seizure if this is in fact a seizure. Given his prolonged asymptomatic course thus far, this etiology is unlikely. Concerned that this is the 3rd fall over the last year. Patient lives alone and is on Warfarin. Initiated conversation about home situation. However, patient was hesitant to spend any length of time outside the home in recovery (acute rehab vs. SNF) * PT consulted: Recommended acute rehab prior to return home. Patient resistant to acute rehab recommendation. Initiated home physical therapy through case management.. * Outpatient orthotic shoe follow-up to be scheduled by patient this week, hopefully completed prior to start of home physical therapy. 2. Hip pain, left Hip x-ray negative for signs of fx. Currently, likely etiology is soft tissue injury without signs of a hematoma * Patient's hip pain improved to the point that he is able to transfer from his bed to the chair without any assistance. Patient also able to ambulate to bathroom under his own power, despite foot drop, mild decompensation. * Home physical therapy as above 3. Mechanical heart valve * Warfarin held at admission due to concern for bleeding; warfarin restarted approximately 72 hours later (INR subtherapeutic at 1.4) * Started Lovenox bridge at full therapeutic dose 1 mg/kg every 12 hours * Restarted warfarin at home dose approximately 3 days later. * INR upon discharge 1.9; outpatient INR check in 2 days. * Therapeutic INR: 2-3. 4. Hx. of seizure * Patient was continued on his home Keppra and Topamax 5. ILD no current shortness of breath * continued Trelegy * continued Prednisone 10mg (increased from chronic 5mg) 6. RA * continue Prednisone 10mg 7. Parkinsonism * continue Sinemet 8. Type 2 diabetes mellitus * SSI * Lantus reduced to 5 units on admission, then increased back to home dose. 9. CAD * continued ASA, Statin Total Time Total Time Spent Total Time Spent (In Minutes): 45 Discharge Plan Discharge Items Patient Disposition: Home - Self-Care Reason For Visit: FALL Discharge Diagnosis: Fall Condition on Discharge: Fair Activity: Per Instructions section Non-emergency contact: Primary Care Provider Call non-emergency contact if: your symptoms worsen Follow-up/Referrals: Josh Gaspar MD [Primary Care Provider] - Diet: Regular Ambulatory Orders: Prothrombin Time INR (Timed) Timeframe: 2 Days Location: Determined by Patient Ordered By: Coby Mauricio Attending Provider Instructions: You were admitted to the hospital for a fall. While you were here, you were evaluated with imaging for a hip fracture and seen by physical and occupational therapy. We held your warfarin to reduce your risk of bleeding. Once your risk of bleeding was assessed, we restarted your warfarin and checked your INR to ensure that you were within your therapeutic range. As we stabilized you, case management helped set up home physical therapy for you, which begins on . A discharge summary will be sent to your primary care physician to ensure continuity of care. Please bring this discharge summary with you to your next office appointment so that your provider can review it at that time. Follow-up appointments: * Have an INR check 2 days from today. Please go to a lab to have this blood work done. You will be provided with a script at discharge to take with you to get this done. * Make a follow-up appointment with your PCP within the next week. It is very important that you follow up with them shortly after discharge from the hospital. * Please reach out to Talon Osorio with [facility] to have your orthotic fitted to the patient's shoe. This has to be done at his office. Email: [email or web address]. * Keep all your follow-up appointments as already scheduled. If you cannot make an appointment, notify your provider. Medications: Your medication list has been reviewed and reconciled upon discharge to ensure accuracy and continuity of care. An updated list of all your medications is included with your hospital discharge paperwork. Please review this list closely, and make note of any changes. Take your medications as instructed; do not skip a dose of your medicines. Make sure all of your doctors know every medicine you are taking (including [id number] medicines, vitamins, and supplements). Call your primary care provider before taking any new medicines (including udnc-dyj-colwvbu medicines, vitamins, and supplements), because some of these may interact with your current medications, or may make your symptoms worse. Tell your primary care provider if you cannot afford your medications. CONTACT YOUR PRIMARY CARE PROVIDER if you experience any of the following: * Difficulty walking or dizziness upon standing * Sudden weakness of your arm or leg, sudden difficulty speaking, or sudden problems with comprehension * Difficulty following your treatment plan, or difficulty taking medications CALL 911 OR GO TO THE EMERGENCY DEPARTMENT if you experience any of the following: * Sudden, severe abdominal pain or nausea/vomiting * Severe chest pain, or chest pain that radiates (moves) to your jaw or arm * Sudden, severe shortness of breath or difficulty breathing Thank you for allowing us to participate in your care. Pending Studies at Discharge: No Stand-Alone Forms: My [facility], Smoking Cessation Medications and DC Order Prescriptions: Continued carbidopa-levodopa 25-100 mg tablet 1 tab PO TID Qty: 90 RF: 2 furosemide [Lasix] 20 mg tablet 20 mg PO DAILY Qty: 30 RF: 0 Ofev 150 mg capsule 150 mg PO Q12H Qty: 60 RF: 2 gabapentin 300 mg capsule 300 mg PO BID Qty: 180 RF: 1 nitroglycerin 0.4 mg Tablet, Sublingual 0.4 mg sublingual DIRECTED PRN (Reason: Chest Pain) RF: 0 albuterol sulfate [Ventolin HFA] 90 mcg/actuation Hfa Aerosol Inhaler 2 puff INHALATION Q4H PRN (Reason: Wheezing) RF: 0 cholecalciferol (vitamin D3) [Vitamin D3] 50 mcg (2,000 unit) Capsule 2,000 unit PO HS RF: 0 atorvastatin 40 mg tablet 40 mg PO HS RF: 0 sennosides [Senokot] 8.6 mg tablet 17.2 mg PO QAM RF: 0 warfarin [Jantoven] 10 mg tablet 10 mg PO HS RF: 0 prednisone 5 mg tablet 5 mg PO QAM RF: 0 potassium chloride [K-Tab] 10 mEq tablet extended release 10 meq PO QAM RF: 0 fexofenadine [Karlee Allergy] 180 mg Tablet 180 mg PO QAM RF: 0 calcium carbonate [Calcium 600] 600 mg calcium (1,500 mg) Tablet 600 mg PO HS RF: 0 Probiotic 3 billion cell Capsule 3,000 mmu cells PO QAM RF: 0 topiramate [Topamax] 100 mg tablet 100 mg PO BID RF: 0 levetiracetam [Keppra] 1,000 mg tablet 1,000 mg PO BID RF: 0 Trelegy Ellipta 100-62.5-25 mcg blister with device 1 inh inhalation QAM RF: 0 insulin aspart U-100 [Novolog Flexpen U-100 Insulin] 100 unit/mL (3 mL) insulin pen 0 unit SUBCUT ACHS RF: 0 aspirin [Adult Low Dose Aspirin] 81 mg tablet,delayed release (DR/EC) 81 mg PO QAM RF: 0 Novolin N NPH U-100 Insulin 100 unit/mL Suspension See Rx Instructions .ROUTE .COMPLEX Qty: 10 RF: 0 Lantus Solostar U-100 Insulin 100 unit/mL (3 mL) insulin pen 20 unit SUBCUT BID Qty: 0 RF: 0 allopurinol 100 mg tablet 100 mg QPM RF: 0 Discharge Orders: Discharge Order (Routine); Ordered 04/11/21 Ordered By: Coby Sen/Other Patient Handouts: Managing Type 2 Diabetes Admission Data Admit Date/Time: 04/09/21 15:34 Attending Provider: Apoorva Dwyer Admit Provider: Ender Lamas Primary Care Provider: Josh Gaspar Other Providers: Shayan Mims ; [employer] ; [facility] Other Interventions: Discharge Summary Assessment (RN) Last Done: 04/11/21 17:00 Supervising Physician Co-Signing Physician Notes Resident Physician Supervision Note: I independently interviewed and examined the patient and verified the peña history and physical, reviewed labs and image studies and agree with resident Dr. Waller findings and care plan. Resident Activity Tracking Resident Involvement: Resident Care Provided Care Provided: Adult [facility]
[2021-04-11] MEDS: WARFARIN SOD 10 MG TAB PO SCH (17:57)
[2021-04-11] MEDS ORDERED: allopurinoL 100 MG TAB PO SCH (21:00)
== END 2021-04-11 18:54 | disposition home or self-care (01) ==
LOC: 2N 16:27 → ED 16:27 → SUATTDRO 20:18 → 2N 21:37 → SUATTDRO 04-09 15:34 → 3N 04-09 23:06
DX: E78.5 Hyperlipidemia, unspecified; E11.9 Type 2 diabetes mellitus without complications; H53.10 Unspecified subjective visual disturbances; J84.9 Interstitial pulmonary disease, unspecified; M10.9 Gout, unspecified; Z91.013 Allergy to seafood; R19.7 Diarrhea, unspecified; D64.9 Anemia, unspecified; Z91.041 Radiographic dye allergy status; M47.892 Other spondylosis, cervical region; Z79.01 Long term (current) use of anticoagulants; G40.909 Epilepsy, unspecified, not intractable, without status epilepticus; Z86.73 Personal history of transient ischemic attack (TIA), and cerebral infarction without residual deficits; Z88.7 Allergy status to serum and vaccine; G20 Parkinson's disease; Z79.4 Long term (current) use of insulin; R51.9 Headache, unspecified; Z79.891 Long term (current) use of opiate analgesic; Z79.82 Long term (current) use of aspirin; Z79.899 Other long term (current) drug therapy; R41.0 Disorientation, unspecified; I25.10 Atherosclerotic heart disease of native coronary artery without angina pectoris; Z79.51 Long term (current) use of inhaled steroids; M06.9 Rheumatoid arthritis, unspecified; M50.30 Other cervical disc degeneration, unspecified cervical region; Z95.2 Presence of prosthetic heart valve; W19.XXXA Unspecified fall, initial encounter; M25.552 Pain in left hip; M85.88 Other specified disorders of bone density and structure, other site

== ENCOUNTER 2021-04-28 09:31 | Observation (INO) ==
--- NOTE | 2021-04-28 10:00 | Emergency Department Note ---
History of Present Illness General Chief complaint: Shortness of Breath/Dyspnea Stated complaint: SOB Time Seen by Provider: 04/28/21 09:41 Source: patient History of Present Illness Provider complaint: Shortness of breath Onset (ago): week(s) Location: chest Pain Consistency: + intermittent Maximum Pain Intensity: 4 Quality: + other (Short of breath) Relieved By: + other (Oxygen) Exacerbated By: + other (Exertion) Associated symptoms: + chest pain, + cough, + fever/chills, + headaches, + malaise, + nausea/vomiting, + shortness of breath and + weakness; no seizure or no syncope This is a 76-year-old male sent over from his doctor's office for evaluation. The patient is complaining of exertional dyspnea over the past week. He states is intermittent. He wears oxygen at night and states that he feels fine in the morning but as to day progresses he has worsening shortness of breath. The shortness of breath is generally worse with exertion. He also states that he has been having chest pain. He describes it as a soreness across his chest. It is worse when he takes deep breaths. He has been having nasal congestion and cough with a sore throat for the past 2 days. He had a temperature this morning of 99.2. He occasionally coughs up some green phlegm. He has been fully vaccinated and received a booster for COVID-19. He does have chronic shortness of breath from lung disease but states that it got worse over the past week. He denies any pain to the lower extremities other than from his arthritis or any unusual swelling. He does have chronic swelling and is on Lasix for this. He also states he feels very weak. He admits to not eating or drinking very much recently. He states he has no appetite and also has a issue with chronic dysphagia. He does feel somewhat nauseated but denies vomiting. He has had no diarrhea and had a bowel movement this morning. He denies any loss of taste or smell. He previously had home health care but they are not available for about a week and his children are away on vacation till 06 May. Home Medications Medication Instructions Recorded Confirmed Type albuterol sulfate 90 mcg/actuation 2 puff INHALATION Q4H PRN 01/20/20 04/28/21 History aerosol inhaler (Ventolin HFA) cholecalciferol (vitamin D3) 50 2,000 unit PO HS 01/20/20 04/28/21 History mcg (2,000 unit) capsule (Vitamin D3) nitroglycerin 0.4 mg sublingual 0.4 mg SUBLINGUAL DIRECTED PRN 01/20/20 04/28/21 History tablet atorvastatin 40 mg tablet 40 mg PO HS 05/28/20 04/28/21 History insulin aspart U-100 100 unit/mL 0 unit SUBCUT ACHS 09/04/20 04/28/21 History (3 mL) subcutaneous pen (Novolog Flexpen U-100 Insulin aspart) aspirin 81 mg tablet,delayed 81 mg PO QAM 10/09/20 04/28/21 History release (Adult Low Dose Aspirin) sennosides 8.6 mg tablet (Senokot) 17.2 mg PO QAM 10/19/20 04/28/21 History gabapentin 300 mg capsule 300 mg PO BID #180 cap 12/28/20 04/28/21 Rx insulin NPH isoph U-100 human 100 See Rx Instructions .ROUTE 01/12/21 04/28/21 Rx unit/mL subcutaneous suspension .COMPLEX #10 ml (Novolin N NPH U-100 Insulin isophane) insulin glargine 100 unit/mL (3 20 unit SUBCUT BID #0 ml 01/12/21 04/28/21 Rx mL) subcutaneous pen (Lantus Solostar U-100 Insulin) carbidopa 25 mg-levodopa 100 mg 1 tab PO TID #90 tab 01/31/21 04/28/21 Rx tablet calcium carbonate 600 mg calcium 600 mg PO HS 02/11/21 04/28/21 History (1,500 mg) tablet (Calcium) fexofenadine 180 mg tablet 180 mg PO QAM 02/11/21 04/28/21 History (Karlee Allergy) fluticasone fur. 100 mcg-umeclid 1 inh INHALATION QAM 02/11/21 04/28/21 History 62.5 mcg-vilant 25 mcg inhalat.powder (Trelegy Ellipta) lactobacillus combination no.4 3 3,000 mmu cells PO QAM 02/11/21 04/28/21 History billion cell capsule (Probiotic) levetiracetam 1,000 mg tablet 1,000 mg PO BID 02/11/21 04/28/21 History (Keppra) potassium chloride 10 mEq 10 meq PO QAM 02/11/21 04/28/21 History tablet,extended release (K-Tab) prednisone 5 mg tablet 5 mg PO QAM 02/11/21 04/28/21 History topiramate 100 mg tablet (Topamax) 100 mg PO BID 02/11/21 04/28/21 History warfarin 10 mg tablet (Jantoven) 7.5 mg PO HS 02/11/21 04/28/21 History furosemide 20 mg tablet (Lasix) 20 mg PO DAILY #30 tab 03/14/21 04/28/21 Rx allopurinol 100 mg tablet 100 mg QPM 04/10/21 04/28/21 History finasteride 5 mg tablet 5 mg PO QAM 04/28/21 04/28/21 History polyethylene glycol 3350 17 17 g PO DAILY PRN 04/28/21 04/28/21 History gram/dose oral powder (Miralax) Allergies Allergy/AdvReac Type Severity Reaction Status Date / Time Iodinated Contrast Media Allergy Severe Anaphylaxis Verified 04/28/21 10:15 shellfish derived Allergy Severe Anaphylaxis Verified 04/28/21 10:15 tamsulosin [From Flomax] Allergy Intermediate Itching Unverified 04/28/21 10:15 Tetanus Vaccines and Toxoid Allergy Unknown Unknown Verified 04/28/21 10:15 Past Med/Surg History Medical History Abnormal CT scan, chest Abnormal CT scan, chest Acute hyperglycemia Acute left-sided muscle weakness Anemia CAD (coronary artery disease) Chest pain Chronic pulmonary aspiration Dehydration Diabetes Dyspnea on exertion Fall Fall Fluid overload HLD (hyperlipidemia) Hypoxia Interstitial lung disease Interstitial lung disease Interstitial lung disease Interstitial lung disease due to connective tissue disease Lung nodule Neurogenic claudication Nocturnal hypoxemia Nocturnal hypoxia Palliative care encounter Polymyositis Polymyositis Polymyositis Prostate cancer s/p XRT Rheumatoid arthritis Rheumatoid arthritis Shortness of breath Stroke-like symptom 12/2019, w/ blurry vision and dysarthria. mild R sided wkness. attending outpatient physical therapy w/ good improvement in strength (5+/5 strength of all 4 extremities as of 05/28/20) Subtherapeutic international normalized ratio (INR) Supratherapeutic INR Thoracic ascending aortic aneurysm s/p repair Weakness Surgical History H/O hernia repair History of aortic valve replacement mechanical History of cholecystectomy History of fusion of cervical spine History of gastric bypass lap band History of heart artery stent History of lung biopsy 2019 History of partial nephrectomy Family History Mother , age 87 of pulmonary issues Rheumatoid arthritis Father , in his mid 80s of a stroke Stroke Other Coronary heart disease Social History Smoking Status: Never smoker Second Hand Exposure: No; Hx Alcohol Use: No Hx Substance Use: No Preferred Language: Yoruba Communication Ability: Effective Hearing Ability: Hard of Hearing Central Lab Technician Required: No Beliefs That Will Affect Care: None marital status: / Current Living Situation: Alone Current Living Situation Comment: Personal care comes in 3 times a week and son lives next door current occupational status: retired 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 and A total of 10 systems reviewed and were otherwise negative Physical Exam Vital Signs Vital Signs - 24 hr 04/28/21 09:44 04/28/21 12:24 Temperature 36.7 C Temperature Source Oral Pulse Rate 72 Respiratory Rate 22 18 Blood Pressure 143/83 H Blood Pressure [Right Arm] 131/74 Blood Pressure Mean 103 Blood Pressure Mean [Right Arm] 93 Pulse Oximetry 100 Oxygen Delivery Method Room Air Room Air Sepsis Recent Fever Within 48 Hours No Sepsis New/Unexplained Change in Mental Status N/A Sepsis Action Taken by Nursing No Action Required Constitutional: Vital signs reviewed. Eyes: Pupils are equal round reactive to light. Conjunctiva are noninjected. ENT: Pharynx is clear without erythema or exudate. Mucous membranes are dry. Neck supple without meningeal signs. Respiratory: Clear to auscultation bilaterally. Breath sounds are equal bilaterally. Cardiovascular: Regular rate and rhythm. Audible mechanical valve. GI: Soft, nondistended and nontender. Bowel sounds are present. Musculoskeletal: No peripheral edema. No lower extremity tenderness. Right leg in a brace. Integumentary: No cyanosis. or jaundice. Neurological: The patient is awake and alert. Right foot drop. Psychiatric: Normal affect. Not anxious appearing. Course Administered Medications Carbidopa/Levodopa (Carbidopa/Levodopa 25/100mg Tab) 1 tab PO TID [facility] Stop: 05/28/21 13:59 Last Admin: 04/28/21 15:15 Dose: 1 tab Documented by: [id number] Sodium Chloride (Nss) 500 mls @ 125 mls/hr IV .Q4H KIRSTEN Stop: 05/28/21 09:59 Last Admin: 04/28/21 15:59 Dose: 125 mls/hr Documented by: [id number] Infusion: 04/28/21 15:09 Dose: 0 mls/hr Documented by: [id number] Admin: 04/28/21 11:00 Dose: 125 mls/hr Documented by: [id number] Insulin Human NPH (Insulin Human Nph) 40 units SC DAILY [facility]; Protocol Stop: 05/28/21 14:29 Last Admin: 04/28/21 15:59 Dose: 40 units Documented by: [id number] Cosigned by: [id number] Prednisone (Prednisone 20 Mg Tab) 60 mg PO DAILY [facility] Stop: 05/28/21 13:28 Last Admin: 04/28/21 15:15 Dose: 60 mg Documented by: [id number] Discontinued Medications Lorazepam (Lorazepam 2 Mg/Ml Vial (Im Use)) Confirm Administered Dose 2 mg .ROUTE .STK-MED ONE Stop: 04/28/21 13:20 Last Admin: 04/28/21 13:24 Dose: 2 mg Documented by: [id number] Medical Decision Making Differential Diagnosis Pneumonia, bronchitis, COVID-19, intracranial hemorrhage, dehydration, metabolic derangement, pleurisy, [facility] Attestation: I reviewed the patient's medical records. I did perform a limited focused review of portions of the patient's old chart on the electronic medical record. The patient was admitted to this hospital earlier this month and discharged on the . He had a fall for unclear reasons. It was recommended he be discharged to rehab or a SNF but he declined and went home. Home Medications Current Medication List: was personally reviewed by me Laboratory Data Attestation: I reviewed the patient's lab results. Result diagrams: 04/28/21 10:10 04/28/21 10:10 Lab Results 04/28/21 04/28/21 04/28/21 Range/Units 10:05 10:10 10:10 WBC 6.14 (4.8-10.8) K/uL RBC 4.18 L (4.7-6.1) M/uL Hgb 10.5 L (14.0-18.0) g/dL Hct 34.1 L (42-52) % MCV 81.6 (80-100) fL MCH 25.1 (25-34) pg MCHC 30.8 L (32-36) g/dL RDW Std Deviation 48.8 H (36.4-46.3) fL RDW Coeff of Lianne 16.2 H (11.5-14.5) % Plt Count 181 (130-400) K/uL MPV 9.6 (7.4-10.4) fL Immature Gran % (Auto) 1.0 % Neut % (Auto) 78.4 % Lymph % (Auto) 13.2 % [place] % (Auto) 5.4 % Eos % (Auto) 1.8 % Baso % (Auto) 0.2 % Neut # (Auto) 4.82 (1.4-6.5) K/uL Lymph # (Auto) 0.81 L (1.2-3.4) K/uL [place] # (Auto) 0.33 (0.11-0.59) K/uL Eos # (Auto) 0.11 (0-0.5) K/uL Baso # (Auto) 0.01 (0-0.2) K/uL Immature Gran # (Auto) 0.06 H (0.00-0.02) K/uL PT (9.0-12.0) Seconds INR (0.9-1.1) APTT (21.0-31.0) Seconds PTT Ratio Sodium 139 (136-145) mmol/L Potassium 3.6 (3.5-5.1) mmol/L Chloride 108 H (98-107) mmol/L Carbon Dioxide 25 (21-32) mmol/L Anion Gap 6.0 (3-11) BUN 40 H (7-18) mg/dl Creatinine 1.36 (0.6-1.4) mg/dl Est Cr Clr Drug Dosing 60.2 ml/min Est GFR ( Amer) 58.2 ml/min Est GFR (Non-Af Amer) 50.2 ml/min BUN/Creatinine Ratio 29.3 H (10-20) Glucose 100 H (70-99) mg/dl Calcium 9.2 (8.5-10.1) mg/dl Magnesium 2.2 (1.8-2.4) mg/dl Total Bilirubin 0.3 (0.2-1) mg/dl AST 20 (15-37) U/L ALT 14 (12-78) Alkaline Phosphatase 63 (45-117) U/L Troponin I < 0.015 (0-0.045) ng/ml Total Protein 6.7 (6.4-8.2) gm/dl Albumin 3.3 L (3.4-5.0) gm/dl Globulin 3.4 (2.5-4.0) gm/dl Albumin/Globulin Ratio 1.0 (0.9-2) Urine Color Urine Appearance (Clear) Urine pH (4.5-7.5) Ur Specific [place] (1.000-1.030) Urine Protein (Negative) Urine Glucose (UA) (Negative) Urine Ketones (Negative) Urine Blood (Negative) Urine Nitrite (Negative) Urine Bilirubin (Negative) Urine Urobilinogen (Negative) Ur Leukocyte Esterase (Negative) SARS-CoV-2 (PCR) NEGATIVE (Negative) Influenza Type A (PCR) Negative (Neg) Influenza Type B (PCR) Negative (Neg) RSV (RT-PCR) Negative (Neg) 04/28/21 04/28/21 Range/Units 10:10 10:55 WBC (4.8-10.8) K/uL RBC (4.7-6.1) M/uL Hgb (14.0-18.0) g/dL Hct (42-52) % MCV (80-100) fL MCH (25-34) pg MCHC (32-36) g/dL RDW Std Deviation (36.4-46.3) fL RDW Coeff of Lianne (11.5-14.5) % Plt Count (130-400) K/uL MPV (7.4-10.4) fL Immature Gran % (Auto) % Neut % (Auto) % Lymph % (Auto) % [place] % (Auto) % Eos % (Auto) % Baso % (Auto) % Neut # (Auto) (1.4-6.5) K/uL Lymph # (Auto) (1.2-3.4) K/uL [place] # (Auto) (0.11-0.59) K/uL Eos # (Auto) (0-0.5) K/uL Baso # (Auto) (0-0.2) K/uL Immature Gran # (Auto) (0.00-0.02) K/uL PT 35.2 H (9.0-12.0) Seconds INR 3.9 H (0.9-1.1) APTT 44.7 H (21.0-31.0) Seconds PTT Ratio 1.7 Sodium (136-145) mmol/L Potassium (3.5-5.1) mmol/L Chloride (98-107) mmol/L Carbon Dioxide (21-32) mmol/L Anion Gap (3-11) BUN (7-18) mg/dl Creatinine (0.6-1.4) mg/dl Est Cr Clr Drug Dosing ml/min Est GFR ( Amer) ml/min Est GFR (Non-Af Amer) ml/min BUN/Creatinine Ratio (10-20) Glucose (70-99) mg/dl Calcium (8.5-10.1) mg/dl Magnesium (1.8-2.4) mg/dl Total Bilirubin (0.2-1) mg/dl AST (15-37) U/L ALT (12-78) Alkaline Phosphatase (45-117) U/L Troponin I (0-0.045) ng/ml Total Protein (6.4-8.2) gm/dl Albumin (3.4-5.0) gm/dl Globulin (2.5-4.0) gm/dl Albumin/Globulin Ratio (0.9-2) Urine Color Yellow Urine Appearance Clear (Clear) Urine pH 6.0 (4.5-7.5) Ur Specific [place] 1.008 (1.000-1.030) Urine Protein Negative (Negative) Urine Glucose (UA) Negative (Negative) Urine Ketones Negative (Negative) Urine Blood Negative (Negative) Urine Nitrite Negative (Negative) Urine Bilirubin Negative (Negative) Urine Urobilinogen Negative (Negative) Ur Leukocyte Esterase Negative (Negative) SARS-CoV-2 (PCR) (Negative) Influenza Type A (PCR) (Neg) Influenza Type B (PCR) (Neg) RSV (RT-PCR) (Neg) Imaging Data Radiologist's Impression: Chest X-Ray 04/28/21 09:57 XR chest 1V portable CLINICAL HISTORY: Dyspnea. COMPARISON STUDY: 04/07/2021 TECHNIQUE: 1 view of the chest FINDINGS: Single frontal view of the chest demonstrates the cardiomediastinal silhouette to be within normal limits. The patient is status post previous cardiothoracic surgery. The lungs are clear of alveolar opacities. There is no evidence for pleural effusion. There is no evidence for vascular congestion. There is no acute osseous pathology. IMPRESSION: No acute cardiopulmonary disease. There is no significant interval change. ACT 112: Negative or not required by law. Electronically signed by: Trent Ken M.D. 04/28/2021 10:[address] 04/28/21 10:00 CT head/brain wo con CLINICAL HISTORY: GONZALEZ/fall eval for bleed COMPARISON STUDY: 04/09/2021 CT DOSE: 614.27 mGy.cm TECHNIQUE: Standard CT of the Brain was performed without IV contrast. A dose lowering technique was utilized adhering to the principles of ALARA. FINDINGS: Extraaxial space: There is no evidence for subdural hematoma. There are no extra-axial fluid collections. Ventricles and cisterns: The ventricles are normal in size and configuration. There is no evidence for midline shift or mass effect. Parenchyma: There is no subarachnoid or intraparenchymal hemorrhage. There is no evidence for an acute infarct or cerebral edema. There is mild cerebral cortical atrophy and decreased attenuation in the periventricular white matter representing remote small vessel disease. There are no gross mass lesions. Osseous structures: There is no evidence for an acute fracture. The visualized paranasal sinuses are clear. The mastoid air cells are clear bilaterally. Soft tissues: There is no evidence for focal soft tissue swelling. IMPRESSION: No acute intracerebral pathology. There is again mild cerebral cortical atrophy and remote small vessel disease. ACT 112: Negative or not required by law. Electronically signed by: Trent Ken M.D. 04/28/2021 10:47 AM ECG Data Attestation: I personally reviewed and interpreted this ECG as follows: Indication: + chest pain and + weakness Rate (beats per minute): 71 Rhythm: + normal sinus ECG [place]: + Normal ECG ST segments: no ST elevation ECG Findings: no PVCs MDM Narrative I did evaluate the patient as noted above. The patient was sent over from his doctor's office for hospitalization. He has had worsening shortness of breath and chest discomfort. He describes the discomfort in his chest as a soreness when he takes a deep breath. He states that he has had this in the past. He had a cardiac catheterization years ago which showed that his cardiac stent was open. He is not sure if the pain is related to his polymyositis or his heart disease. IV access was established. I did place an order for continuous cardiac monitoring. The monitor showed normal sinus rhythm at a rate of 71 bpm.I did order and personally review the patient's 12-lead EKG as described above. He has no acute ischemic changes. I did order and personally reviewed the images of the patient's chest x-ray as described above. There is no evidence of acute process.I did order a urine analysis. There is no evidence of pneumonia.I did order and review the patient's blood work as noted in the electronic medical record. CBC is unremarkable without leukocytosis or thrombocytopenia. He does have a chronic anemia with a hemoglobin of 10.5. His INR is elevated at 3.9. Electrolytes are unremarkable other than a chloride of 108. Troponin and LFTs are unremarkable. Covid, influenza and RSV testing is negative. I did discuss the test results with the patient. He will be hospitalized for further care and evaluation. I did discuss case with the hospitalist and case management coordinator. Impression & Plan AZUL (dyspnea on exertion), Chronic anemia, Chest pain, Generalized weakness, Supratherapeutic INR Discharge Plan Visit Data Chief Complaint: Shortness of Breath/Dyspnea Stated Complaint: SOB ED Provider: Yo Forbes Discharge Problem: AZUL (dyspnea on exertion), Chronic anemia, Chest pain, Generalized weakness, Supratherapeutic INR Patient Disposition: Admitted As Inpatient Discharge Instructions Interventions: ED Discharge Assessment Last Done: 04/28/21 13:28
--- NOTE | 2021-04-28 10:27 | XRay Report ---
XR chest 1V portable CLINICAL HISTORY: Dyspnea. COMPARISON STUDY: 04/07/2021 TECHNIQUE: 1 view of the chest FINDINGS: Single frontal view of the chest demonstrates the cardiomediastinal silhouette to be within normal li mits. The patient is status post previous cardiothoracic surgery. The lungs are clear of alveolar opa cities. There is no evidence for pleural effusion. There is no evidence for vascular congestion. Ther e is no acute osseous pathology. IMPRESSION: No acute cardiopulmonary disease. There is no significant interval change. ACT 112: Negative or not required by law. Electronically signed by: Trent Ken M.D. 04/28/2021 10:25 AM
[2021-04-28 10:32] LABS: Basophils # (auto) 0.01 K/uL (0-0.2); Basophils % (auto) 0.2 %; Eosinophils # (auto) 0.11 K/uL (0-0.5); Eosinophils % (auto) 1.8 %; Hematocrit (blood only) 34.1 % (42-52); Hemoglobin 10.5 g/dL (14.0-18.0); Immature Granulocytes # (auto) 0.06 K/uL (0.00-0.02); Lymphocytes # (auto) 0.81 K/uL (1.2-3.4); Lymphocytes % (auto) 13.2 %; Mean Corpuscular Hemoglobin 25.1 pg (25-34); Mean Corpuscular Hgb Conc 30.8 g/dL (32-36); Mean Corpuscular Volume 81.6 fL (80-100); Mean Platelet Volume 9.6 fL (7.4-10.4); Monocytes # (auto) 0.33 K/uL (0.11-0.59); Monocytes % (auto) 5.4 %; Neutrophils # (auto) 4.82 K/uL (1.4-6.5); Neutrophils % (auto) 78.4 %; Platelet Count 181 K/uL (130-400); RDW Coefficient of Variation 16.2 % (11.5-14.5); RDW Standard Deviation 48.8 fL (36.4-46.3); Red Blood Count 4.18 M/uL (4.7-6.1); White Blood Count 6.14 K/uL (4.8-10.8)
--- NOTE | 2021-04-28 10:48 | CT Scan Report ---
CT head/brain wo con CLINICAL HISTORY: GONZALEZ/fall eval for bleed COMPARISON STUDY: 04/09/2021 CT DOSE: 614.27 mGy.cm TECHNIQUE: Standard CT of the Brain was performed without IV contrast. A dose lowering technique was utilized adhering to the principles of ALARA. FINDINGS: Extraaxial space: There is no evidence for subdural hematoma. There are no extra-axial fluid collecti ons. Ventricles and cisterns: The ventricles are normal in size and configuration. There is no evidence f or midline shift or mass effect. Parenchyma: There is no subarachnoid or intraparenchymal hemorrhage. There is no evidence for an acu te infarct or cerebral edema. There is mild cerebral cortical atrophy and decreased attenuation in th e periventricular white matter representing remote small vessel disease. There are no gross mass lesi ons. Osseous structures: There is no evidence for an acute fracture. The visualized paranasal sinuses are clear. The mastoid air cells are clear bilaterally. Soft tissues: There is no evidence for focal soft tissue swelling. IMPRESSION: No acute intracerebral pathology. There is again mild cerebral cortical atrophy and remot e small vessel disease. ACT 112: Negative or not required by law. Electronically signed by: Trent Ken M.D. 04/28/2021 10:47 AM
[2021-04-28 10:51] LABS: Alanine Aminotransferase 14 (12-78); Albumin Level 3.3 gm/dl (3.4-5.0); Aspartate Aminotransferase 20 U/L (15-37); BUN Creatinine Ratio 29.3 (10-20); Blood Urea Nitrogen 40 mg/dl (7-18); Calcium 9.2 mg/dl (8.5-10.1); Carbon Dioxide 25 mmol/L (21-32); Chloride 108 mmol/L (98-107); Creatinine Clr Calc Pharmacy 60.2 ml/min; Est GFR (African American) 58.2 ml/min; Est GFR (Non-African American) 50.2 ml/min; Glucose 100 mg/dl (70-99); Magnesium 2.2 mg/dl (1.8-2.4); Potassium 3.6 mmol/L (3.5-5.1); Sodium 139 mmol/L (136-145)
[2021-04-28 10:52] LABS: INR 3.9 (0.9-1.1); Partial Thromboplastin Ratio 1.7; Partial Thromboplastin Time 44.7 Seconds (21.0-31.0); Prothrombin Time 35.2 Seconds (9.0-12.0)
[2021-04-28 10:54] LABS: Influenza A virus by PCR Negative (Neg); Influenza B virus by PCR Negative (Neg); RSV by PCR Negative (Neg); SARS CoV2 RNA(COVID-19) InHosp NEGATIVE (Negative)
[2021-04-28 10:56] LABS: Alkaline Phosphatase 63 U/L (45-117); Bilirubin,Total 0.3 mg/dl (0.2-1); Globulin 3.4 gm/dl (2.5-4.0); Total Protein 6.7 gm/dl (6.4-8.2); Troponin I < 0.015 ng/ml (0-0.045)
[2021-04-28] MEDS: SODIUM CHLORIDE 0.9% 500 ML IV SCH ×3 (11:00→20:10)
[2021-04-28 11:32] LABS: Appearance Urine Clear (Clear); Bilirubin Urine Negative (Negative); Blood Urine Negative (Negative); Color Urine Yellow; Glucose Urine UA Negative (Negative); Ketones Urine Negative (Negative); Leukocyte Esterase Urine Negative (Negative); Nitrite Urine Negative (Negative); Protein Urine Negative (Negative); Specific Gravity Urine 1.008 (1.000-1.030); Urobilinogen Urine Negative (Negative)
--- NOTE | 2021-04-28 12:02 | History & Physical Report ---
Date of Service April 28, 2021 Assessment & Plan (1) Weakness: Plan: Xavi is a 76-year-old male with a history of CAD with PCI, DM, HLD, interstitial lung disease on home oxygen at night, polymyositis, prostate cancer status post XRT, RA, and warfarin anticoagulation for mechanical AV who presents to the ER for evaluation of malaise, fatigue, cough, and exertional dyspnea over the previous week. Reports he has some chest soreness which is across his chest and worse when he takes deep breaths or coughs. Has had increased nasal congestion and cough with a sore throat for 2 days. Endorses increasing weakness, has not been eating or drinking much in the previous few days. Has had home health services but they are away for at least a week, and his family is on vacation until 05/06. Weakness,? chronic ambulatory dysfunction with exacerbation 2/2 acute viral illness versus myositis/ILD flare - Covid negative, flu negative, RSV negative, no leukocytosis Patient with history of polymyositis and associated interstitial lung disease last seen by pulmonary 03/14/2021 with additional details as below Patient with 2 to 3 days of nasal congestion, cough, some sore throat. Endorses additional intermittent shortness of breath and some aches in his chest and arm similar to prior flares. He recently completed a prednisone taper back to a baseline of 10 mg Normal SPO2 sat on room air at time of bedside assessment, patient has had frequent intermittent desaturations with ambulation to the 80s which are worse than prior for him Patient feels that this is in line with his prior flares, but he is more nervous about being home alone especially with family away PT/OT pending Treatment of ILD as below No leukocytosis, creatinine at baseline, creatinine/BUN ratio 29, troponin negative, albumin 3.3 Patient volume sensitive in the past, clinically appears slightly volume depleted. Encourage p.o. at this time (2) Interstitial lung disease: Plan: Interstitial lung disease Last seen by pulmonary 03/14/2021. At that time was starting antifibrotic therapy with Ofev 150 mg twice daily. Thought to have polymyositis ILD. Patient was also follow-up with [facility] rheumatology. Continue Trelegy - PFT 03/08/21: FEV1/FVC 72, FEV1 2.53 L, 71%, FVC 3.54 L, 75%, There was a significant postbronchodilator response in FEV1. FEV1 improved by 16%.TLC 6.12 L, 82% RV/TLC 114% DLCO 18.68 mL/min/mmHg 56% DL/VA 76% - PFT 09/09/20: FEV1/FVC 75 FEV1 2.63 L, 78% FVC 3.52 L, 79% 17% increase postbronchodilator in FEV1. TLC 6.38 L, 90% RV/TLC 126% DLCO 20.23 mL/min/mmHg, 64% DL/VA 81% Patient was recommended/prescribed Ofev previously, however his insurance denied this following last pulmonary visit Patient has discussed additional immunosuppressive agents, kidney puller was hesitant due to his degree of underlying immune suppression to proceed with this Prednisone 60 mg - Glycemic consult while on prednisone SPO2 as needed to maintain sat greater than 88% (3) Polymyositis: Plan: - As above (4) Seizure: Plan: History of seizure Continue home Keppra Continue home topiramate (5) Rheumatoid arthritis: Plan: Rheumatoid arthritis On prednisone as above (6) Diabetes: Plan: Type 2 diabetes mellitus Goal BSG [id number] Home dosing Lantus 20 units subcu twice daily - SSI based on TDD - Pharmacy consulted for adjustments on steroids (7) Parkinsonism: Plan: Parkinsonism Continue carbidopalevodopa 1 tab 3 times daily (8) Aortic valve replaced: Plan: AV replacement with mechanical valve On warfarin anticoagulation therapy INR supratherapeutic 3.9 on admission Evening warfarin held INR daily No signs of bleeding (9) CAD (coronary artery disease): Plan: CAD with history of PCI Continue atorvastatin Continue aspirin Continue home Lasix Troponin negative on admission EKG on admission normal sinus rhythm, no acute ST wave or T wave changes Plan: DVT prophylaxis: Anticoagulated with warfarin as above, supratherapeutic at admission Diet: DM CODE STATUS: Full code, discussed with patient. Directive on file, would not want prolonged intervention but would want CPR/intubation trial Disposition: Medical surgical with telemetry History of Present Illness Chief Complaint: Weakness Primary Care Provider: Josh Gaspar MD Xavi is a 76-year-old male with a history of CAD with PCI, DM, HLD, interstitial lung disease on home oxygen at night, polymyositis, prostate cancer status post XRT, RA, and warfarin anticoagulation for mechanical AV who presents to the ER for evaluation of malaise, fatigue, cough, and exertional dyspnea over the previous week. Reports he has some chest soreness which is across his chest and worse when he takes deep breaths or coughs. Has had increased nasal congestion and cough with a sore throat for 2 days. Endorses increasing weakness, has not been eating or drinking much in the previous few days. Has had home health services but they are away for at least a week, and his family is on vacation until 05/06. At bedside HPI patient reports he feels his polymyositis might be flaring. Feels more achy in his arms and legs when walking, more short of breath intermittently throughout the day. Decreased appetite x2-3 days. Kids normally next door but in [place] for the next week. Hasn't been drinking much water. No diarrhea/constipation/vomiting. +nausea improved with zofran. Last flare was a few months ago which improved with a prednisone taper. Last visit with Marcio he was told because his immune system was so compromised he would not likely tolerate MTX at that time. Saw Dr. Ortega pulmonology and was told his pulmonary function loss was acceleration and was prescribed Ofev but did not take this as was declined by insurance. Pending referral to [facility] (last there August 2019), video consult scheduled for May 02. on prednisone 10mg a day. Reports that last week he has had some sinus congestion and a nonproductive cough, decreased appetite and taking minimal p.o. liquids/food. Has some achy pain in his chest intermittently none at time of assessment, which he notes he has had in the past and seems to come up during his myositis/ILD flares. Denies syncope/presyncope, but endorses that between his weakness and SI dysfunction he is not able to ambulate around his home even with his walker. Insulin: lantus 20u AM/HS, Novolog ~30 units daily total, and Novolin N to help cover his prednisone (10u per 10mg pred). Warfarin: goal 2-3 INR. 7.5mg. Medical History: Reviewed Medications: Reviewed Surgical History: Reviewed Allergies: Reviewed Social History: Reviewed as below, lives alone with his family next-door although they are away at this time. Code Status: Full code Allergies Allergy/AdvReac Type Severity Reaction Status Date / Time Iodinated Contrast Media Allergy Severe Anaphylaxis Verified 04/28/21 10:15 shellfish derived Allergy Severe Anaphylaxis Verified 04/28/21 10:15 tamsulosin [From Flomax] Allergy Intermediate Itching Unverified 04/28/21 10:15 Tetanus Vaccines and Toxoid Allergy Unknown Unknown Verified 04/28/21 10:15 Home Medications Medication Instructions Recorded Confirmed Type albuterol sulfate 90 mcg/actuation 2 puff INHALATION Q4H PRN 01/20/20 04/28/21 History aerosol inhaler (Ventolin HFA) cholecalciferol (vitamin D3) 50 2,000 unit PO HS 01/20/20 04/28/21 History mcg (2,000 unit) capsule (Vitamin D3) nitroglycerin 0.4 mg sublingual 0.4 mg SUBLINGUAL DIRECTED PRN 01/20/20 04/28/21 History tablet atorvastatin 40 mg tablet 40 mg PO HS 05/28/20 04/28/21 History insulin aspart U-100 100 unit/mL 0 unit SUBCUT ACHS 09/04/20 04/28/21 History (3 mL) subcutaneous pen (Novolog Flexpen U-100 Insulin aspart) aspirin 81 mg tablet,delayed 81 mg PO QAM 10/09/20 04/28/21 History release (Adult Low Dose Aspirin) sennosides 8.6 mg tablet (Senokot) 17.2 mg PO QAM 10/19/20 04/28/21 History gabapentin 300 mg capsule 300 mg PO BID #180 cap 12/28/20 04/28/21 Rx insulin NPH isoph U-100 human 100 See Rx Instructions .ROUTE 01/12/21 04/28/21 Rx unit/mL subcutaneous suspension .COMPLEX #10 ml (Novolin N NPH U-100 Insulin isophane) insulin glargine 100 unit/mL (3 20 unit SUBCUT BID #0 ml 01/12/21 04/28/21 Rx mL) subcutaneous pen (Lantus Solostar U-100 Insulin) carbidopa 25 mg-levodopa 100 mg 1 tab PO TID #90 tab 01/31/21 04/28/21 Rx tablet calcium carbonate 600 mg calcium 600 mg PO HS 02/11/21 04/28/21 History (1,500 mg) tablet (Calcium) fexofenadine 180 mg tablet 180 mg PO QAM 02/11/21 04/28/21 History (Karlee Allergy) fluticasone fur. 100 mcg-umeclid 1 inh INHALATION QAM 02/11/21 04/28/21 History 62.5 mcg-vilant 25 mcg inhalat.powder (Trelegy Ellipta) lactobacillus combination no.4 3 3,000 mmu cells PO QAM 02/11/21 04/28/21 History billion cell capsule (Probiotic) levetiracetam 1,000 mg tablet 1,000 mg PO BID 02/11/21 04/28/21 History (Keppra) potassium chloride 10 mEq 10 meq PO QAM 02/11/21 04/28/21 History tablet,extended release (K-Tab) prednisone 5 mg tablet 5 mg PO QAM 02/11/21 04/28/21 History topiramate 100 mg tablet (Topamax) 100 mg PO BID 02/11/21 04/28/21 History warfarin 10 mg tablet (Jantoven) 7.5 mg PO HS 02/11/21 04/28/21 History furosemide 20 mg tablet (Lasix) 20 mg PO DAILY #30 tab 03/14/21 04/28/21 Rx allopurinol 100 mg tablet 100 mg QPM 04/10/21 04/28/21 History finasteride 5 mg tablet 5 mg PO QAM 04/28/21 04/28/21 History polyethylene glycol 3350 17 17 g PO DAILY PRN 04/28/21 04/28/21 History gram/dose oral powder (Miralax) Past Med/Surg History Medical History Abnormal CT scan, chest Abnormal CT scan, chest Acute hyperglycemia Acute left-sided muscle weakness Anemia CAD (coronary artery disease) Chest pain Chronic pulmonary aspiration Dehydration Diabetes Dyspnea on exertion Fall Fall Fluid overload HLD (hyperlipidemia) Hypoxia Interstitial lung disease Interstitial lung disease Interstitial lung disease Interstitial lung disease due to connective tissue disease Lung nodule Neurogenic claudication Nocturnal hypoxemia Nocturnal hypoxia Palliative care encounter Polymyositis Polymyositis Polymyositis Prostate cancer s/p XRT Rheumatoid arthritis Rheumatoid arthritis Shortness of breath Stroke-like symptom 12/2019, w/ blurry vision and dysarthria. mild R sided wkness. attending outpatient physical therapy w/ good improvement in strength (5+/5 strength of all 4 extremities as of 05/28/20) Subtherapeutic international normalized ratio (INR) Supratherapeutic INR Thoracic ascending aortic aneurysm s/p repair Weakness Surgical History H/O hernia repair History of aortic valve replacement mechanical History of cholecystectomy History of fusion of cervical spine History of gastric bypass lap band History of heart artery stent History of lung biopsy 2019 History of partial nephrectomy Family History Mother , age 87 of pulmonary issues Rheumatoid arthritis Father , in his mid 80s of a stroke Stroke Other Coronary heart disease Social History Smoking Status: Never smoker Second Hand Exposure: No; Hx Alcohol Use: No Hx Substance Use: No Preferred Language: Citizen Of [place] Communication Ability: Effective Hearing Ability: Hard of Hearing Electrical Engineering Professor Required: No Beliefs That Will Affect Care: None marital status: / Current Living Situation: Alone Current Living Situation Comment: Personal care comes in 3 times a week and son lives next door current occupational status: retired 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 NAD. Cooperative. Appears fatigued but nontoxic. HEENT: Atraumatic, normocephalic. Visual acuity and hearing grossly intact, wearing hearing aids at time of assessment. Pupils equal and responsive to light. Pulm: Diminished, but grossly clear to auscultation without overt wheezes/rales/rhonchi. Symmetrical chest rise. No increase work of breathing. No respiratory distress. Cardiac: RRR, -mrg. Radial pulses intact and symmetrical. Chest nontender to palpation. Abdominal: Nontender, nondistended, soft. BS present. Extremities: Warm, dry. Pitting edema of the lower extremity right greater than left, at baseline per patient. 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 Ankle dorsiflexion 4/5 bilaterally. Results & Data Results & Data ([facility]) Vital Signs (Past 12 Hours) Vital Signs Temp Pulse Resp BP Pulse Ox 04/28/21 09:44 36.7 C 72 22 143/83 H 100 PG Care Time/CCT Total # of Minutes Spent Total Time Spent with Patient: Total time spent is greater than 50% in coordination of care (as documented) at patient's floor/unit and/or counseling patient: Coding Level of Care Code INT OBSERVATION CARE 50M LVL 2 Diagnoses Weakness R53.1 Interstitial lung disease J84.9 Polymyositis M33.20 Seizure R56.9 Rheumatoid arthritis M06.9 Rheumatoid arthritis location: unspecified site Rheumatoid factor presence: unspecified presence Parkinsonism G20 Parkinsonism type: unspecified Aortic valve replaced Z95.2 CAD (coronary artery disease) I25.10 Coronary Disease-Associated Artery/Lesion type: unga artery [place] vs. transplanted heart: unga heart Associated angina: without angina Diabetes E11.42; Z79.4 Diabetes mellitus type: type 2 Diabetes mellitus rodent exterminator insulin use: with rodent exterminator use Diabetes mellitus complication status: with neurologic complications Diabetes mellitus complication detail: with polyneuropathy (1) Rheumatoid arthritis Rheumatoid arthritis location: unspecified site Rheumatoid factor presence: unspecified presence Qualified Code(s): M06.9 - Rheumatoid arthritis, unspecified (2) Parkinsonism Parkinsonism type: unspecified Qualified Code(s): G20 - Parkinson's disease (3) CAD (coronary artery disease) Coronary Disease-Associated Artery/Lesion type: unga artery [place] vs. transplanted heart: unga heart Associated angina: without angina Qualified Code(s): I25.10 - Atherosclerotic heart disease of unga coronary artery without angina pectoris (4) Diabetes Diabetes mellitus type: type 2 Diabetes mellitus skilled nursing insulin use: with rodent exterminator use Diabetes mellitus complication status: with neurologic complications Diabetes mellitus complication detail: with polyneuropathy Qualified Code(s): E11.42 - Type 2 diabetes mellitus with diabetic polyneuropathy; Z79.4 - nursing home (current) use of insulin
[2021-04-28] MEDS ORDERED: LORazepam 2 MG/ML VIAL (IM USE) ONE (13:19)
[2021-04-28] MEDS ORDERED: LORazepam 2 MG/4 ML VIAL IV PRN (13:23)
[2021-04-28] MEDS ORDERED: CARBOHYDRATES FOR HYPOGLYCEMIA PO PRN (13:29)
[2021-04-28] MEDS ORDERED: DEXTROSE 50% 50 ML SYRINGE IV PRN (13:29)
[2021-04-28] MEDS ORDERED: GLUCOSE 10 TABS/TUBE PO PRN (13:29)
[2021-04-28] MEDS ORDERED: GLUCOSE 40% GEL 15 GM TUBE PO PRN (13:29)
[2021-04-28] MEDS ORDERED: GLUCAGON FOR INJ 1 MG VIAL SQ PRN (13:29)
[2021-04-28] MEDS ORDERED: PHARMACY GLYCEMIC MGMT CONSULT PRN (13:29)
--- NOTE | 2021-04-28 14:16 | Pharmacy Report ---
Pharmacy Glycemic Short Note 2 - Date of Service April 28, 2021 - Glycemic Short BSG Results (Last 24 hours): 04/28/21 10:10 Glucose 100 H OUTPATIENT ANTIDIABETIC REGIMEN: * Lantus 20 units SQ BID * Novolog 20 units with meals and at HS * NPH 1 unit per 1mg prednisone ASSESSMENT: * 76 year old male admitted with weakness, interstitial lung disease, starting on Prednisone 60mg PO Daily, known to pharmacy glycemic service from previous admissions. * Blood sugar 100mg/dl on admission, NPH with prednisone, continue home Lantus dose, NovoLog CF/CR and overnight checks tonight, titrate doses to goal blood sugar. PLAN FOR INPATIENT GLYCEMIC CONTROL: * Basal insulin * Lantus 20 units SQ BID * NPH 40 units SQ daily with prednisone * Bolus insulin * NovoLog per scale ACHS or Q6hrs while NPO * Goal Range: Low 110 mg/dL - High 140 mg/dL * Correction Factor: 10 mg/dL/unit * Nutritional / Prandial insulin per carb ratio of 1 unit per 3 grams CHO consumed PLAN FOR DISCHARGE: * A1c 7.7% 04/08/21, likely continue home regimen.
[2021-04-28] MEDS ORDERED: INSULIN HUMAN NPH SC SCH (14:30)
[2021-04-28] MEDS: CARBIDOPA/LEVODOPA 25/100MG TAB PO SCH ×2 (15:15→22:08)
[2021-04-28] MEDS: predniSONE 20 MG TAB PO SCH (15:15)
[2021-04-28] MEDS ORDERED: INSULIN ASPART PER UNIT SC SCH (16:30)
--- NOTE | 2021-04-28 18:21 | Electrocardiogram Report ---
Test Reason : Blood Pressure : / mmHG Vent. Rate : 071 BPM Atrial Rate : 071 BPM P-R Int : 140 ms QRS Dur : 086 ms QT Int : 410 ms P-R-T Axes : 043 032 081 degrees QTc Int : 445 ms Normal sinus rhythm Normal ECG When compared with ECG of 07-APR-2021 16:58, No significant change was found Confirmed by Cody Soto [id number]) on 04/28/2021 6:21:21 PM Referred By: REFERRED SELF Confirmed By:Wyatt Soto
[2021-04-28] MEDS: INSULIN ASPART PER UNIT SC SCH ×2 (18:25→22:03)
[2021-04-28] MEDS ORDERED: INSULIN GLARGINE SOLOSTAR 100 UNITS/ML 3 ML PEN SC SCH (21:00)
[2021-04-28] MEDS: allopurinoL 100 MG TAB PO SCH (22:07)
[2021-04-28] MEDS: ATORVASTATIN 40 MG TAB PO SCH (22:08)
[2021-04-28] MEDS: CALCIUM CARBONATE 1250MG TAB PO SCH (22:09)
[2021-04-28] MEDS: CHOLECALCIFEROL 1,000 UNITS 25 MCG TAB PO SCH (22:10)
[2021-04-28] MEDS: GABAPENTIN 300 MG CAP PO SCH (22:11)
[2021-04-28] MEDS: levETIRAcetam 500 MG TAB PO SCH (22:11)
[2021-04-28] MEDS: TOPIRAMATE 100 MG TAB PO SCH (22:12)
[2021-04-29] MEDS: SODIUM CHLORIDE 0.9% 500 ML IV SCH ×4 (00:21→09:07)
[2021-04-29] MEDS: INSULIN ASPART PER UNIT SC SCH ×6 (00:28→20:16)
[2021-04-29 08:13] LABS: Basophils # (auto) 0.01 K/uL (0-0.2); Basophils % (auto) 0.1 %; Eosinophils # (auto) 0.01 K/uL (0-0.5); Eosinophils % (auto) 0.1 %; Hematocrit (blood only) 32.9 % (42-52); Immature Granulocytes # (auto) 0.07 K/uL (0.00-0.02); Immature Granulocytes % (auto) 0.9 %; Lymphocytes # (auto) 0.84 K/uL (1.2-3.4); Lymphocytes % (auto) 10.8 %; Mean Corpuscular Hemoglobin 24.8 pg (25-34); Mean Corpuscular Hgb Conc 30.4 g/dL (32-36); Mean Corpuscular Volume 81.4 fL (80-100); Mean Platelet Volume 9.6 fL (7.4-10.4); Monocytes % (auto) 5.1 %; Neutrophils # (auto) 6.47 K/uL (1.4-6.5); Platelet Count 189 K/uL (130-400); RDW Coefficient of Variation 15.9 % (11.5-14.5); RDW Standard Deviation 47.5 fL (36.4-46.3); Red Blood Count 4.04 M/uL (4.7-6.1)
[2021-04-29 08:22] LABS: INR 3.5 (0.9-1.1); Prothrombin Time 31.9 Seconds (9.0-12.0)
[2021-04-29 08:36] LABS: Calcium 8.8 mg/dl (8.5-10.1); Creatinine Clr Calc Pharmacy 69.7 ml/min; Est GFR (African American) 70.5 ml/min; Est GFR (Non-African American) 60.8 ml/min; Potassium 4.4 mmol/L (3.5-5.1)
[2021-04-29] MEDS: CARBIDOPA/LEVODOPA 25/100MG TAB PO SCH ×3 (08:52→20:09)
[2021-04-29] MEDS: levETIRAcetam 500 MG TAB PO SCH ×2 (08:52→20:11)
[2021-04-29] MEDS: GABAPENTIN 300 MG CAP PO SCH ×2 (08:53→20:10)
[2021-04-29] MEDS: UMECLIDINIUM/VILANTEROL 62.5/25MCG 7 PUFFS/INHALER INH SCH (08:54)
[2021-04-29] MEDS: TOPIRAMATE 100 MG TAB PO SCH ×2 (08:54→20:10)
[2021-04-29] MEDS: FLUTICASONE FUROATE 100MCG 14 PUFFS/INHALER INH SCH (08:54)
[2021-04-29] MEDS ORDERED: NON-FORMULARY MEDICATION (Fluticasone-Umeclidin-Vilanter [Trelegy Ellipta] 100-62.5-25 mcg INH SCH (09:00)
[2021-04-29] MEDS ORDERED: INSULIN GLARGINE SOLOSTAR 100 UNITS/ML 3 ML PEN SC SCH (09:00)
[2021-04-29] MEDS: FUROSEMIDE 20 MG TAB PO SCH (09:03)
[2021-04-29] MEDS: FEXOFENADINE HCL 180 MG TAB PO SCH (09:04)
[2021-04-29] MEDS: ASPIRIN 81 MG ECTAB PO SCH (09:04)
[2021-04-29] MEDS: POTASSIUM CHLORIDE 10 MEQ TABCR PO SCH (09:04)
[2021-04-29] MEDS: PANTOprazole 40 MG TAB PO SCH (09:04)
[2021-04-29] MEDS: predniSONE 20 MG TAB PO SCH (09:04)
[2021-04-29] MEDS: FINASTERIDE 5 MG TAB PO SCH (09:05)
[2021-04-29] MEDS ORDERED: busPIRone 5 MG TAB PO ONE (12:31)
--- NOTE | 2021-04-29 12:41 | Pharmacy Report ---
Pharmacy Glycemic Short Note 2 - Date of Service April 29, 2021 - Glycemic Short BSG Results (Last 24 hours): 04/28/21 04/28/21 04/29/21 15:18 21:48 00:26 Glucose POC Glucose 128 H 163 H 135 H 04/29/21 04/29/21 04/29/21 04:04 07:40 07:50 Glucose 121 H POC Glucose 130 H 123 H 04/29/21 12:08 Glucose POC Glucose 102 H OUTPATIENT ANTIDIABETIC REGIMEN: * Lantus 20 units SQ BID * Novolog 20 units with meals and at HS * NPH 1 unit per 1mg prednisone ASSESSMENT: 04/29/21 * Patient's blood sugars yesterday were 100-128-163 mg/dL and overnight were 135-130 mg/dL. His fasting BSG was 123 mg/dL and lunch 102 mg/dL. * Patient received 60 units of basal yesterday (20 units of Lantus and 40 units of NPH) plus 3 units of Novolog. * Due to patient's decreased PO intake, elected to not continue NPH at this time. Tighten CR to compensate with PO prednisone. * Will give Lantus scale with doses of 10-15 units as based upon previous hospitalization. Background * 76 year old male admitted with weakness, interstitial lung disease, starting on Prednisone 60mg PO Daily, known to pharmacy glycemic service from previous admissions. * Blood sugar 100mg/dl on admission, NPH with prednisone, continue home Lantus dose, NovoLog CF/CR and overnight checks tonight, titrate doses to goal blood sugar. PLAN FOR INPATIENT GLYCEMIC CONTROL: * Basal insulin * Lantus 10 units SQ BID (15 units if BSG > 120 mg/dL) * Bolus insulin * NovoLog per scale ACHS or Q6hrs while NPO * Goal Range: Low 110 mg/dL - High 140 mg/dL * Correction Factor: 15 mg/dL/unit * Nutritional / Prandial insulin per carb ratio of 1 unit per 2 grams CHO consumed PLAN FOR DISCHARGE: * A1c 7.7% 04/08/21, likely continue home regimen.
[2021-04-29] MEDS: SENNA 8.6 MG TAB PO SCH (13:24)
--- NOTE | 2021-04-29 17:33 | Hospitalist Progress Note ---
Date of Service April 29, 2021 Assessment & Plan (1) Weakness: Plan: Weakness,? chronic ambulatory dysfunction with exacerbation 2/2 acute viral illness versus myositis/ILD flare, possibly from aspiration -No overt pneumonia/aspiration pneumoniai.e. no clear indication to need antibiotics at this time - Covid negative, flu negative, RSV negative, no leukocytosis Patient with history of polymyositis and associated interstitial lung disease last seen by pulmonary 03/14/2021 with additional details as below Patient with 2 to 3 days of nasal congestion, cough, some sore throat. Endorses additional intermittent shortness of breath and some aches in his chest and arm similar to prior flares. He recently completed a prednisone taper back to a baseline of 10 mg Normal SPO2 sat on room air at rest PT/OT eval and treat Treatment of ILD for now with escalated steroids. Close outpatient pulmonary follow-up. 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 (2) Interstitial lung disease: Plan: Interstitial lung disease Last seen by pulmonary 03/14/2021. At that time was starting antifibrotic therapy with Ofev 150 mg twice dailybut unfortunately not approved by insurance. Continue escalated prednisone for now. Otherwise as above. Continue Trelegy - PFT 03/08/21: FEV1/FVC 72, FEV1 2.53 L, 71%, FVC 3.54 L, 75%, There was a significant postbronchodilator response in FEV1. FEV1 improved by 16%.TLC 6.12 L, 82% RV/TLC 114% DLCO 18.68 mL/min/mmHg 56% DL/VA 76% - PFT 09/09/20: FEV1/FVC 75 FEV1 2.63 L, 78% FVC 3.52 L, 79% 17% increase postbronchodilator in FEV1. TLC 6.38 L, 90% RV/TLC 126% DLCO 20.23 mL/min/mmHg, 64% DL/VA 81% Patient was recommended/prescribed Ofev previously, however his insurance denied this following last pulmonary visit Patient has discussed additional immunosuppressive agents, police and fire dispatcher was hesitant due to his degree of underlying immune suppression to proceed with this (3) Polymyositis: Plan: - As above (4) Seizure: Plan: History of seizure Continue home Keppra Continue home topiramate (5) Rheumatoid arthritis: Plan: Rheumatoid arthritis On prednisone as above (6) Diabetes: Plan: Pharmacy glycemic assistance while on steroids (7) Parkinsonism: Plan: Parkinsonism Continue carbidopalevodopa 1 tab 3 times daily (8) Aortic valve replaced: Plan: AV replacement with mechanical valve On warfarin anticoagulation therapy INR 3.5 (9) CAD (coronary artery disease): Plan: CAD with history of PCI Continue atorvastatin Continue aspirin Continue home Lasix Troponin negative on admission EKG on admission normal sinus rhythm, no acute ST wave or T wave changes Plan: DVT prophylaxis: Anticoagulated with warfarin as above, supratherapeutic at admission Diet: DM CODE STATUS: Full code, admitting hospitalist discussed with patient. Directive on file, would not want prolonged intervention but would want CPR/intubation trial Disposition: Stable for med surge, PT/OT eval and treat, at this point time likely would need subacute rehab Admission and Anticipated Discharge Date Admission Date: April 28, 2021 Subjective Has generally been feeling weaker. More short of breath. Right now doing okay at rest, has not really been up and around a lot, although he did just work with therapy. Definitely does not feel like he is safe at home, and currently has less support at home as well. Notes he is been working with pulmonary and rheumatology, and pulmonary would like to initiate treatment for his interstitial lung disease that unfortunately has not been approved by insurance. Notes that he absolutely hates the minced and moist diet, is aware of his dysphagia/aspiration risk, and will just try to order foods appropriate to his condition Review of Systems Review of Systems: All systems reviewed & are unremarkable except as noted in HPI & below Physical Exam Physical Exam: In general he is awake and alert pleasant no distress. HEENT normocephalic atraumatic mucous membranes moist. Lungs are clear to auscultation bilaterally no rales rhonchi or wheeze with good effortdiminished air entry but overall clear. Cardio is regular without rubs murmurs or gallops. Extremities without cyanosis or clubbing. Neuro without any focal defects, although he is weak. Results & Data Results & Data ([facility]) Vital Signs (Past 12 Hours) Vital Signs Temp Pulse Resp BP Pulse Ox 04/29/21 12:11 98.1 F 77 24 140/84 100 04/29/21 08:51 98.6 F 64 18 125/67 100 PG Care Time/CCT Total # of Minutes Spent Total Time Spent with Patient: Total time spent is greater than 50% in coordination of care (as documented) at patient's floor/unit and/or counseling patient: Coding Level of Care Code 30607 Subseq Obs Care Lvl 3 Diagnoses Weakness R53.1 Interstitial lung disease J84.9 Polymyositis M33.20 Seizure R56.9 Rheumatoid arthritis M06.9 Rheumatoid arthritis location: unspecified site Rheumatoid factor presence: unspecified presence Diabetes E11.42; Z79.4 Diabetes mellitus type: type 2 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 transplanted heart: tribe heart Associated angina: without angina Qualified Code(s): I25.10 - Atherosclerotic heart disease of tribe coronary artery without angina pectoris
[2021-04-29] MEDS: CALCIUM CARBONATE 1250MG TAB PO SCH (20:08)
[2021-04-29] MEDS: ATORVASTATIN 40 MG TAB PO SCH (20:09)
[2021-04-29] MEDS: allopurinoL 100 MG TAB PO SCH (20:09)
[2021-04-29] MEDS: CHOLECALCIFEROL 1,000 UNITS 25 MCG TAB PO SCH (20:10)
[2021-04-29] MEDS: POLYETHYLENE (MIRALAX) 17 GM PACK PO SCH (20:10)
[2021-04-29] MEDS: INSULIN GLARGINE SOLOSTAR 100 UNITS/ML 3 ML PEN SC SCH (20:14)
[2021-04-30] MEDS: ACETAMINOPHEN 325 MG TAB PO PRN ×2 (00:34→10:22)
[2021-04-30] MEDS: INSULIN GLARGINE SOLOSTAR 100 UNITS/ML 3 ML PEN SC SCH ×2 (09:47→21:06)
[2021-04-30] MEDS: INSULIN ASPART PER UNIT SC SCH ×5 (09:48→21:22)
[2021-04-30] MEDS: INSULIN HUMAN NPH SC SCH (09:49)
[2021-04-30] MEDS: POTASSIUM CHLORIDE 10 MEQ TABCR PO SCH (10:03)
[2021-04-30] MEDS: levETIRAcetam 500 MG TAB PO SCH ×2 (10:03→21:05)
[2021-04-30] MEDS: SENNA 8.6 MG TAB PO SCH (10:03)
[2021-04-30] MEDS: TOPIRAMATE 100 MG TAB PO SCH ×2 (10:03→21:07)
[2021-04-30] MEDS: GABAPENTIN 300 MG CAP PO SCH ×2 (10:04→21:07)
[2021-04-30] MEDS: FINASTERIDE 5 MG TAB PO SCH (10:04)
[2021-04-30] MEDS: FEXOFENADINE HCL 180 MG TAB PO SCH (10:04)
[2021-04-30] MEDS: ASPIRIN 81 MG ECTAB PO SCH (10:04)
[2021-04-30] MEDS: PANTOprazole 40 MG TAB PO SCH (10:04)
[2021-04-30] MEDS: FUROSEMIDE 20 MG TAB PO SCH (10:04)
[2021-04-30] MEDS: predniSONE 20 MG TAB PO SCH (10:04)
[2021-04-30] MEDS: CARBIDOPA/LEVODOPA 25/100MG TAB PO SCH ×3 (10:04→21:05)
[2021-04-30] MEDS: FLUTICASONE FUROATE 100MCG 14 PUFFS/INHALER INH SCH (10:05)
[2021-04-30] MEDS: POLYETHYLENE (MIRALAX) 17 GM PACK PO SCH ×2 (10:05→21:09)
[2021-04-30] MEDS: UMECLIDINIUM/VILANTEROL 62.5/25MCG 7 PUFFS/INHALER INH SCH (10:05)
--- NOTE | 2021-04-30 13:59 | Pharmacy Report ---
Pharmacy Glycemic Short Note 2 - Date of Service April 30, 2021 - Glycemic Short BSG Results (Last 24 hours): 04/29/21 04/29/21 04/30/21 17:55 20:12 08:15 POC Glucose 235 H 223 H 96 04/30/21 12:08 POC Glucose 144 H OUTPATIENT ANTIDIABETIC REGIMEN: * Lantus 20 units SQ BID * Novolog 20 units with meals and at HS * NPH 1 unit per 1mg prednisone ASSESSMENT: 04/30/21: * Xavi received 83 units of SQ insulin yesterday (30 units Lantus + 53 units of Novolog) * Fasting BSG at goal. Continue current Lantus order. * Post prandial hyperglycemia due to prednisone. He required 13 units of correction insulin on 04/29. Patient eating well. Will start once daily NPH to target this. Will loosen carb ratio with NPH on board. 04/29/21 * Patient's blood sugars yesterday were 100-128-163 mg/dL and overnight were 135-130 mg/dL. His fasting BSG was 123 mg/dL and lunch 102 mg/dL. * Patient received 60 units of basal yesterday (20 units of Lantus and 40 units of NPH) plus 3 units of Novolog. * Due to patient's decreased PO intake, elected to not continue NPH at this time. Tighten CR to compensate with PO prednisone. * Will give Lantus scale with doses of 10-15 units as based upon previous hospitalization. Background * 76 year old male admitted with weakness, interstitial lung disease, starting on Prednisone 60mg PO Daily, known to pharmacy glycemic service from previous admissions. * Blood sugar 100mg/dl on admission, NPH with prednisone, continue home Lantus dose, NovoLog CF/CR and overnight checks tonight, titrate doses to goal blood sugar. PLAN FOR INPATIENT GLYCEMIC CONTROL: * Basal insulin - add NPH * Lantus 10 units SQ BID (15 units if BSG > 120 mg/dL) * NPH 20 units SQ once daily - to be given with prednisone * Bolus insulin - loosen carb ratio * NovoLog per scale ACHS or Q6hrs while NPO * Goal Range: Low 110 mg/dL - High 140 mg/dL * Correction Factor: 15 mg/dL/unit * Nutritional / Prandial insulin per carb ratio of 1 unit per 3 grams CHO consumed PLAN FOR DISCHARGE: * A1c 7.7% 04/08/21, likely continue home regimen.
--- NOTE | 2021-04-30 19:44 | Hospitalist Progress Note ---
Date of Service April 30, 2021 Assessment & Plan (1) Weakness: Plan: Weakness,? chronic ambulatory dysfunction with exacerbation 2/2 acute viral illness versus myositis/ILD flare, possibly from aspiration -No overt pneumonia/aspiration pneumoniai.e. no clear indication to need antibiotics at this time - Covid negative, flu negative, RSV negative, no leukocytosis Patient with history of polymyositis and associated interstitial lung disease last seen by pulmonary 03/14/2021 with additional details as below Patient with 2 to 3 days of nasal congestion, cough, some sore throat. Endorses additional intermittent shortness of breath and some aches in his chest and arm similar to prior flares. He recently completed a prednisone taper back to a baseline of 10 mg Normal SPO2 sat on room air at rest PT/OT eval and treat Treatment of ILD for now with escalated steroidscan reduce given that his breathing is doing reasonably well Close outpatient pulmonary follow-up. 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 (2) Interstitial lung disease: Plan: Interstitial lung disease Last seen by pulmonary 03/14/2021. At that time was starting antifibrotic therapy with Ofev 150 mg twice dailybut unfortunately not approved by insurance. Continue escalated prednisone for now, but as above will reduce Otherwise as above. Continue Trelegy - PFT 03/08/21: FEV1/FVC 72, FEV1 2.53 L, 71%, FVC 3.54 L, 75%, There was a significant postbronchodilator response in FEV1. FEV1 improved by 16%.TLC 6.12 L, 82% RV/TLC 114% DLCO 18.68 mL/min/mmHg 56% DL/VA 76% - PFT 09/09/20: FEV1/FVC 75 FEV1 2.63 L, 78% FVC 3.52 L, 79% 17% increase postbronchodilator in FEV1. TLC 6.38 L, 90% RV/TLC 126% DLCO 20.23 mL/min/mmHg, 64% DL/VA 81% Patient was recommended/prescribed Ofev previously, however his insurance denied this following last pulmonary visit Patient has discussed additional immunosuppressive agents, saw filer was hesitant due to his degree of underlying immune suppression to proceed with this (3) Anxiety: Plan: extensive discussions on how to manage panic attacks; discussed root cause of the anxietyseems to be his overall weakness and frailty, combined with a conflicted feeling about trying to stay safe from Covid but also feeling like he is not really living his life at all. Discussed that he has a lot of outside influences, including NOSs physiciansyou are largely going to focus on his medical conditions, and his children, who understandably are largely going to focus on his physical safety. At the same time, he needs permission to be able to focus on what is his own personal best risk-benefit balance, and make decisions that will make him happyparticularly as he is getting weaker and frailer. He appreciated these discussionsand will continue to think and pray on his situation. (4) Polymyositis: Plan: - As above (5) Seizure: Plan: History of seizure Continue home Keppra Continue home topiramate (6) Rheumatoid arthritis: Plan: Rheumatoid arthritis On prednisone as above (7) Diabetes: Plan: Pharmacy glycemic assistance while on steroids (8) Parkinsonism: Plan: Parkinsonism Continue carbidopalevodopa 1 tab 3 times daily (9) Aortic valve replaced: Plan: AV replacement with mechanical valve On warfarin anticoagulation therapy - follow INR (10) CAD (coronary artery disease): Plan: CAD with history of PCI Continue atorvastatin Continue aspirin Continue home Lasix Troponin negative on admission EKG on admission normal sinus rhythm, no acute ST wave or T wave changes Plan: DVT prophylaxis: Anticoagulated with warfarin as above, supratherapeutic at admission Diet: DM CODE STATUS: Full code, admitting hospitalist discussed with patient. Directive on file, would not want prolonged intervention but would want CPR/intubation trial Disposition: Stable on med surg, PT/OT eval and treat, home vs rehab depending on his progress Admission and Anticipated Discharge Date Admission Date: April 28, 2021 Subjective feeling anxious and panic attacks frequently. ntoes that he's basically been lonely holing up to avoid covid - largely at his kids' urging. he wants to get back involved w campus minitry but worried about covid. but is comfortable with dying but doesn't want to . panic attacks mostly feeling like he's drowning - but notes that pulse ox is good when this happens Review of Systems Review of Systems: All systems reviewed & are unremarkable except as noted in HPI & below Physical Exam Physical Exam: gen drake landin initially anxious and shaky after extensive discussions he calms and shaking stops breathing unlabored no accessory muscles good effort skin no rashes no pallor or icterus Results & Data Results & Data ([facility]) Vital Signs (Past 12 Hours) Vital Signs Temp Pulse Resp BP Pulse Ox 04/30/21 16:09 97.7 F 64 16 106/68 92 04/30/21 08:09 97.5 F L 66 16 129/43 L 100 PG Care Time/CCT Total # of Minutes Spent Total Time Spent with Patient: Total time spent is greater than 50% in coordination of care (as documented) at patient's floor/unit and/or counseling patient: Coding Level of Care Code 22004 Subseq Hosp Care Lvl 3 Diagnoses Weakness R53.1 Interstitial lung disease J84.9 Polymyositis M33.20 Seizure R56.9 Rheumatoid arthritis M06.9 Rheumatoid arthritis location: unspecified site Rheumatoid factor presence: unspecified presence Diabetes E11.42; Z79.4 Diabetes mellitus type: type 2 Diabetes mellitus terminal worker insulin use: with terminal worker use Diabetes mellitus complication status: with neurologic complications Diabetes mellitus complication detail: with polyneuropathy Parkinsonism G20 Parkinsonism type: unspecified Aortic valve replaced Z95.2 CAD (coronary artery disease) I25.10 Coronary Disease-Associated Artery/Lesion type: [place] artery [place] vs. transplanted heart: [place] heart Associated angina: without angina Anxiety F41.9 (1) Rheumatoid arthritis Rheumatoid arthritis location: unspecified site Rheumatoid factor presence: unspecified presence Qualified Code(s): M06.9 - Rheumatoid arthritis, unspecified (2) Diabetes Diabetes mellitus type: type 2 Diabetes mellitus terminal worker insulin use: with custodial use Diabetes mellitus complication status: with neurologic complications Diabetes mellitus complication detail: with polyneuropathy Qualified Code(s): E11.42 - Type 2 diabetes mellitus with diabetic polyneuropathy; Z79.4 - intermediate (current) use of insulin (3) Parkinsonism Parkinsonism type: unspecified Qualified Code(s): G20 - Parkinson's disease (4) CAD (coronary artery disease) Coronary Disease-Associated Artery/Lesion type: [place] artery [place] vs. transplanted heart: [place] heart Associated angina: without angina Qualified Code(s): I25.10 - Atherosclerotic heart disease of [place] coronary artery without angina pectoris
[2021-04-30] MEDS: ATORVASTATIN 40 MG TAB PO SCH (21:04)
[2021-04-30] MEDS: allopurinoL 100 MG TAB PO SCH (21:04)
[2021-04-30] MEDS: CHOLECALCIFEROL 1,000 UNITS 25 MCG TAB PO SCH (21:05)
[2021-04-30] MEDS: CALCIUM CARBONATE 1250MG TAB PO SCH (21:10)
[2021-05-01 06:25] LABS: Basophils # (auto) 0.01 K/uL (0-0.2); Basophils % (auto) 0.2 %; Eosinophils # (auto) 0.02 K/uL (0-0.5); Eosinophils % (auto) 0.3 %; Hematocrit (blood only) 32.7 % (42-52); Hemoglobin 9.9 g/dL (14.0-18.0); Immature Granulocytes # (auto) 0.11 K/uL (0.00-0.02); Immature Granulocytes % (auto) 1.8 %; Lymphocytes # (auto) 0.81 K/uL (1.2-3.4); Mean Corpuscular Hemoglobin 24.8 pg (25-34); Mean Corpuscular Hgb Conc 30.3 g/dL (32-36); Mean Platelet Volume 9.9 fL (7.4-10.4); Monocytes # (auto) 0.36 K/uL (0.11-0.59); Monocytes % (auto) 5.8 %; Neutrophils # (auto) 4.92 K/uL (1.4-6.5); Neutrophils % (auto) 78.9 %; Platelet Count 189 K/uL (130-400); RDW Coefficient of Variation 16.2 % (11.5-14.5); RDW Standard Deviation 49.4 fL (36.4-46.3); Red Blood Count 3.99 M/uL (4.7-6.1); White Blood Count 6.23 K/uL (4.8-10.8)
[2021-05-01 06:28] LABS: Prothrombin Time 18.8 Seconds (9.0-12.0)
[2021-05-01 06:51] LABS: BUN Creatinine Ratio 27.2 (10-20); Calcium 8.5 mg/dl (8.5-10.1); Creatinine Clr Calc Pharmacy 56.7 ml/min; Est GFR (African American) 57.2 ml/min; Est GFR (Non-African American) 49.3 ml/min; Potassium 3.9 mmol/L (3.5-5.1)
[2021-05-01] MEDS: ASPIRIN 81 MG ECTAB PO SCH (08:57)
[2021-05-01] MEDS: POTASSIUM CHLORIDE 10 MEQ TABCR PO SCH (08:57)
[2021-05-01] MEDS: predniSONE 20 MG TAB PO SCH (08:58)
[2021-05-01] MEDS: CARBIDOPA/LEVODOPA 25/100MG TAB PO SCH ×3 (08:58→20:44)
[2021-05-01] MEDS: FEXOFENADINE HCL 180 MG TAB PO SCH (08:58)
[2021-05-01] MEDS: TOPIRAMATE 100 MG TAB PO SCH ×2 (08:58→20:43)
[2021-05-01] MEDS: PANTOprazole 40 MG TAB PO SCH (08:58)
[2021-05-01] MEDS: levETIRAcetam 500 MG TAB PO SCH ×2 (08:58→20:43)
[2021-05-01] MEDS: FINASTERIDE 5 MG TAB PO SCH (08:58)
[2021-05-01] MEDS: GABAPENTIN 300 MG CAP PO SCH ×2 (08:58→20:43)
[2021-05-01] MEDS: SENNA 8.6 MG TAB PO SCH (08:58)
[2021-05-01] MEDS: FUROSEMIDE 20 MG TAB PO SCH (08:58)
[2021-05-01] MEDS: POLYETHYLENE (MIRALAX) 17 GM PACK PO SCH ×2 (08:59→20:52)
[2021-05-01] MEDS: UMECLIDINIUM/VILANTEROL 62.5/25MCG 7 PUFFS/INHALER INH SCH (08:59)
[2021-05-01] MEDS: FLUTICASONE FUROATE 100MCG 14 PUFFS/INHALER INH SCH (08:59)
[2021-05-01] MEDS: INSULIN ASPART PER UNIT SC SCH ×4 (09:09→20:52)
[2021-05-01] MEDS: INSULIN GLARGINE SOLOSTAR 100 UNITS/ML 3 ML PEN SC SCH ×2 (09:10→20:50)
[2021-05-01] MEDS: INSULIN HUMAN NPH SC SCH (09:20)
--- NOTE | 2021-05-01 14:14 | Pharmacy Report ---
Pharmacy Glycemic Short Note 2 - Date of Service May 01, 2021 - Glycemic Short BSG Results (Last 24 hours): 04/30/21 04/30/21 05/01/21 17:02 20:45 05:27 Glucose 157 H POC Glucose 150 H 236 H 05/01/21 05/01/21 07:31 12:05 Glucose POC Glucose 139 H 211 H OUTPATIENT ANTIDIABETIC REGIMEN: * Lantus 20 units SQ BID * Novolog 20 units with meals and at HS * NPH 1 unit per 1mg prednisone ASSESSMENT: 05/01/21: * Xavi received 98 units of SQ insulin yesterday (25 units Lantus + 20 units NPH + 53 units novolog) * Fasting BSG of 139 mg/dL is slightly above goal. Continue Lantus dosed per BS G. * Post prandials improved after adding NPH to glycemic regimen. Prednisone dose will decrease to 20 mg starting tomorrow morning. Will decrease NPH. 04/30/21: * Xavi received 83 units of SQ insulin yesterday (30 units Lantus + 53 units of Novolog) * Fasting BSG at goal. Continue current Lantus order. * Post prandial hyperglycemia due to prednisone. He required 13 units of correction insulin on 04/29. Patient eating well. Will start once daily NPH to target this. Will loosen carb ratio with NPH on board. 04/29/21 * Patient's blood sugars yesterday were 100-128-163 mg/dL and overnight were 135-130 mg/dL. His fasting BSG was 123 mg/dL and lunch 102 mg/dL. * Patient received 60 units of basal yesterday (20 units of Lantus and 40 units of NPH) plus 3 units of Novolog. * Due to patient's decreased PO intake, elected to not continue NPH at this time. Tighten CR to compensate with PO prednisone. * Will give Lantus scale with doses of 10-15 units as based upon previous hospitalization. Background * 76 year old male admitted with weakness, interstitial lung disease, starting on Prednisone 60mg PO Daily, known to pharmacy glycemic service from previous admissions. * Blood sugar 100mg/dl on admission, NPH with prednisone, continue home Lantus dose, NovoLog CF/CR and overnight checks tonight, titrate doses to goal blood sugar. PLAN FOR INPATIENT GLYCEMIC CONTROL: * Basal insulin - decrease NPH * Lantus 10-15 units SQ BID (15 units if BSG > 120 mg/dL) * NPH 12 units SQ once daily - to be given with prednisone * Bolus insulin - loosen carb ratio * NovoLog per scale ACHS or Q6hrs while NPO * Goal Range: Low 110 mg/dL - High 140 mg/dL * Correction Factor: 15 mg/dL/unit * Nutritional / Prandial insulin per carb ratio of 1 unit per 3 grams CHO consumed PLAN FOR DISCHARGE: * A1c 7.7% 04/08/21, likely continue home regimen.
[2021-05-01] MEDS: WARFARIN SOD 7.5 MG TAB PO SCH (15:57)
--- NOTE | 2021-05-01 19:38 | Hospitalist Progress Note ---
Date of Service May 01, 2021 Assessment & Plan (1) Weakness: Plan: Weakness,? chronic ambulatory dysfunction with exacerbation 2/2 acute viral illness versus myositis/ILD flare, possibly from aspiration -No overt pneumonia/aspiration pneumoniai.e. no clear indication to need antibiotics at this time - Covid negative, flu negative, RSV negative, no leukocytosis Patient with history of polymyositis and associated interstitial lung disease last seen by pulmonary 03/14/2021 with additional details as below Normal SPO2 sat on room air at rest PT/OT eval and treat Treatment of ILD for now with escalated steroidsbut now down to 20mg (baseline chronic dosing currently 10mg) Close outpatient pulmonary follow-up. 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 (2) Interstitial lung disease: Plan: Interstitial lung disease Last seen by pulmonary 03/14/2021. At that time was starting antifibrotic therapy with Ofev 150 mg twice dailybut unfortunately not approved by insurance. Continue escalated prednisone for now (now 20mg). Otherwise as above. Continue Trelegy - PFT 03/08/21: FEV1/FVC 72, FEV1 2.53 L, 71%, FVC 3.54 L, 75%, There was a significant postbronchodilator response in FEV1. FEV1 improved by 16%.TLC 6.12 L, 82% RV/TLC 114% DLCO 18.68 mL/min/mmHg 56% DL/VA 76% - PFT 09/09/20: FEV1/FVC 75 FEV1 2.63 L, 78% FVC 3.52 L, 79% 17% increase postbronchodilator in FEV1. TLC 6.38 L, 90% RV/TLC 126% DLCO 20.23 mL/min/mmHg, 64% DL/VA 81% Patient was recommended/prescribed Ofev previously, however his insurance denied this following last pulmonary visit Patient has discussed additional immunosuppressive agents, dispatcher refinery was hesitant due to his degree of underlying immune suppression to proceed with this (3) Anxiety: Plan: extensive discussions 04/30 on how to manage panic attacks; discussed root cause of the anxietyseems to be his overall weakness and frailty, combined with a conflicted feeling about trying to stay safe from Covid but also feeling like he is not really living his life at all. Discussed that he has a lot of outside influences, including NOSs physiciansyou are largely going to focus on his medical conditions, and his children, who understandably are largely going to focus on his physical safety. At the same time, he needs permission to be able to focus on what is his own personal best risk-benefit balance, and make decisions that will make him happyparticularly as he is getting weaker and frailer. He appreciated these discussionsand will continue to think and pray on his situation. feels much relieved that he can decide for himself. (4) Polymyositis: Plan: - As above (5) Seizure: Plan: History of seizure Continue home Keppra Continue home topiramate (6) Rheumatoid arthritis: Plan: Rheumatoid arthritis On prednisone as above (7) Diabetes: Plan: Pharmacy glycemic assistance while on steroids appreciated (8) Parkinsonism: Plan: Parkinsonism Continue carbidopalevodopa 1 tab 3 times daily (9) Aortic valve replaced: Plan: AV replacement with mechanical valve On warfarin anticoagulation therapy - follow INR (2.0 today) -- INR again in AM (10) CAD (coronary artery disease): Plan: CAD with history of PCI no symptoms, continue home meds Plan: DVT prophylaxis: Anticoagulated with warfarin as above, supratherapeutic at admission Diet: DM CODE STATUS: Full code, admitting hospitalist discussed with patient. Directive on file, would not want prolonged intervention but would want CPR/intubation trial Disposition: Stable on med surg, PT/OT eval and treat, anticipate going home in the near future - his desire to work with PT again seems quite reasonable, but i expect that hopefully 1/3 (or at the latest 05/03) he will be feeling confident enough in his ability to care for himself that he will be able to dispo to home. Admission and Anticipated Discharge Date Admission Date: April 28, 2021 Subjective feeling much better and much more relieved. had some panic attacks but was able to think through them better. also notes that he feels better knowing that he can think through what his own best decisions/risks/benefits will be feels like he can probably go home soon - just wants to work with therapy a little more - and upstairs - notes working in ER room was so small he didn't really feel like he was able to get a fair assessment of his ability to perform/exert Review of Systems Review of Systems: All systems reviewed & are unremarkable except as noted in HPI & below Physical Exam Physical Exam: aao pleasant nad heent nc at mmm breathing unlabored no accessory muscles good effort skin no rashes no pallor or icterus neuro no focal deficits Results & Data Results & Data ([facility]) Vital Signs (Past 12 Hours) Vital Signs Temp Pulse Resp BP Pulse Ox 05/01/21 15:37 98.1 F 63 16 122/69 96 PG Care Time/CCT Total # of Minutes Spent Total Time Spent with Patient: Total time spent is greater than 50% in coordination of care (as documented) at patient's floor/unit and/or counseling patient: Coding Level of Care Code 68482 Subseq Hosp Care Lvl 2 Diagnoses Weakness R53.1 Interstitial lung disease J84.9 Anxiety F41.9 Polymyositis M33.20 Seizure R56.9 Rheumatoid arthritis M06.9 Rheumatoid arthritis location: unspecified site Rheumatoid factor presence: unspecified presence Diabetes E11.42; Z79.4 Diabetes mellitus type: type 2 Diabetes mellitus termite control technician insulin use: with termite control technician use Diabetes mellitus complication status: with neurologic complications Diabetes mellitus complication detail: with polyneuropathy Parkinsonism G20 Parkinsonism type: unspecified Aortic valve replaced Z95.2 CAD (coronary artery disease) I25.10 Coronary Disease-Associated Artery/Lesion type: [place] artery [place] vs. transplanted heart: [place] heart Associated angina: without angina (1) Rheumatoid arthritis Rheumatoid arthritis location: unspecified site Rheumatoid factor presence: unspecified presence Qualified Code(s): M06.9 - Rheumatoid arthritis, unspecified (2) Diabetes Diabetes mellitus type: type 2 Diabetes mellitus termite control technician insulin use: with termite control technician use Diabetes mellitus complication status: with neurologic complications Diabetes mellitus complication detail: with polyneuropathy Qualified Code(s): E11.42 - Type 2 diabetes mellitus with diabetic polyneuropathy; Z79.4 - termite control technician (current) use of insulin (3) Parkinsonism Parkinsonism type: unspecified Qualified Code(s): G20 - Parkinson's disease (4) CAD (coronary artery disease) Coronary Disease-Associated Artery/Lesion type: [place] artery [place] vs. transplanted heart: [place] heart Associated angina: without angina Qualified Code(s): I25.10 - Atherosclerotic heart disease of [place] coronary artery without angina pectoris
[2021-05-01] MEDS: ATORVASTATIN 40 MG TAB PO SCH (20:43)
[2021-05-01] MEDS: CHOLECALCIFEROL 1,000 UNITS 25 MCG TAB PO SCH (20:43)
[2021-05-01] MEDS: allopurinoL 100 MG TAB PO SCH (20:43)
[2021-05-01] MEDS: CALCIUM CARBONATE 1250MG TAB PO SCH (20:44)
[2021-05-02 06:33] LABS: INR 1.7 (0.9-1.1); Prothrombin Time 16.6 Seconds (9.0-12.0)
[2021-05-02] MEDS: POLYETHYLENE (MIRALAX) 17 GM PACK PO SCH ×2 (08:21→21:10)
[2021-05-02] MEDS: CARBIDOPA/LEVODOPA 25/100MG TAB PO SCH ×3 (08:22→21:10)
[2021-05-02] MEDS: FLUTICASONE FUROATE 100MCG 14 PUFFS/INHALER INH SCH (08:23)
[2021-05-02] MEDS: GABAPENTIN 300 MG CAP PO SCH ×2 (08:23→21:09)
[2021-05-02] MEDS: FEXOFENADINE HCL 180 MG TAB PO SCH (08:23)
[2021-05-02] MEDS: UMECLIDINIUM/VILANTEROL 62.5/25MCG 7 PUFFS/INHALER INH SCH (08:23)
[2021-05-02] MEDS: predniSONE 20 MG TAB PO SCH (08:24)
[2021-05-02] MEDS: levETIRAcetam 500 MG TAB PO SCH ×2 (08:24→21:09)
[2021-05-02] MEDS: SENNA 8.6 MG TAB PO SCH (08:24)
[2021-05-02] MEDS: TOPIRAMATE 100 MG TAB PO SCH ×2 (08:24→21:09)
[2021-05-02] MEDS: FUROSEMIDE 20 MG TAB PO SCH (08:25)
[2021-05-02] MEDS: FINASTERIDE 5 MG TAB PO SCH (08:25)
[2021-05-02] MEDS: PANTOprazole 40 MG TAB PO SCH (08:25)
[2021-05-02] MEDS: ASPIRIN 81 MG ECTAB PO SCH (08:25)
[2021-05-02] MEDS: INSULIN GLARGINE SOLOSTAR 100 UNITS/ML 3 ML PEN SC SCH ×2 (08:26→21:07)
[2021-05-02] MEDS: POTASSIUM CHLORIDE 10 MEQ TABCR PO SCH (08:32)
[2021-05-02] MEDS: INSULIN ASPART PER UNIT SC SCH ×4 (08:59→21:06)
[2021-05-02] MEDS ORDERED: INSULIN HUMAN NPH SC SCH ×2 (09:00)
--- NOTE | 2021-05-02 09:42 | Hospitalist Progress Note ---
Date of Service May 02, 2021 Assessment & Plan (1) Weakness: Plan: Multifactorial. Chronic ambulatory dysfunction with exacerbation. Possibly flare of autoimmune disease? viral illness? Generally improved. No specific etiology discovered. PT/OT to see. He is somewhat concerned that he will be discharged too soon. (2) Interstitial lung disease: Plan: ILD. Polymyositis RA overlap. @0 mg prednisone today. To have Zoom with [facility] today re treatment options for his autoimmune disease. Side effects with MTX and Rituxan. [place] not to be a candidate for Imuran. (3) Polymyositis: Plan: ILD. Polymyositis RA overlap. 20 mg prednisone today. To have Zoom with [facility] today re treatment options for his autoimmune disease. Side effects with MTX and Rituxan. [place] not to be a candidate for Imuran. Seems clinically stable. To continue with out patient pulm follow up (4) Anxiety: Plan: D/c lorazepam. trial of Buspar q 8 hr. (5) Rheumatoid arthritis: Plan: as above (6) Aortic valve replaced: Plan: Continue a/c. Admission and Anticipated Discharge Date Admission Date: May 01, 2021 Subjective Feels better this AM. Another panic attack last PM. Resolved with time, deep breathing. He is, however requesting "something" to help. Appetite improving. Still feels weak. fearful about going home. Lives alone. Family next door, but they are out until this Sunday. he believes that this is the root of his anxiety. Denies dyspnea, chest or abdominal pain. looking forward to PT [place]. Review of Systems Review of Systems: No headache. No visual change. No CP,SOB. Appetite better. No joint pain. Physical Exam Physical Exam: General: Alert. Not distressed. Lungs: Essentially clear. Heart: Regular. [place] valve sounds. Very soft murmur Abd: soft Ext. Min resting tremor. No edema Results & Data Results & Data ([facility]) Vital Signs (Past 12 Hours) Vital Signs Temp Pulse Resp BP Pulse Ox 05/02/21 07:17 97.7 F 60 16 147/62 H 98 05/01/21 22:38 97.7 F 63 18 99/58 L 95 PG Care Time/CCT Total # of Minutes Spent Total Time Spent with Patient: Total time spent is greater than 50% in coordination of care (as documented) at patient's floor/unit and/or counseling patient: Coding Level of Care Code 59940 Subseq Hosp Care Lvl 3 Diagnoses Weakness R53.1 Interstitial lung disease J84.9 Polymyositis M33.20 Anxiety F41.9 Rheumatoid arthritis M06.9 Rheumatoid arthritis location: unspecified site Rheumatoid factor presence: unspecified presence Aortic valve replaced Z95.2 (1) Rheumatoid arthritis Rheumatoid arthritis location: unspecified site Rheumatoid factor presence: unspecified presence Qualified Code(s): M06.9 - Rheumatoid arthritis, unspecified
--- NOTE | 2021-05-02 14:07 | Pharmacy Report ---
Pharmacy Glycemic Short Note 2 - Date of Service May 02, 2021 - Glycemic Short BSG Results (Last 24 hours): 05/01/21 05/01/21 05/02/21 17:00 20:31 08:03 POC Glucose 220 H 267 H 154 H 05/02/21 12:01 POC Glucose 197 H OUTPATIENT ANTIDIABETIC REGIMEN: * Lantus 20 units SC BID * Novolog 20 units SC ACHS * NPH 1 unit SC per 1 mg prednisone * HbA1c = 7.7% (04/08/21) ASSESSMENT: 05/02: * Patient received a total of 131 units of insulin yesterday (30 units Lantus + 20 units NPH + 81 units Novolog) * BSGs were uncontrolled: [phone] mg/dL * Fasting BSG was elevated at 154 mg/dL this AM * Will increase Lantus 15-30% today per scale * Steroid-induced hyperglycemia noted in postprandial BSGs throughout the day yesterday * Kept NPH dose at 20 units rather than decreasing * Tightened carb ratio slightly at lunch 05/01: * Xavi received 98 units of SQ insulin yesterday (25 units Lantus + 20 units NPH + 53 units novolog) * Fasting BSG of 139 mg/dL is slightly above goal. Continue Lantus dosed per BSG. * Post prandials improved after adding NPH to glycemic regimen. Prednisone dose will decrease to 20 mg starting tomorrow morning. Will decrease NPH. 04/30: * Xavi received 83 units of SQ insulin yesterday (30 units Lantus + 53 units of Novolog) * Fasting BSG at goal. Continue current Lantus order. * Post prandial hyperglycemia due to prednisone. He required 13 units of correction insulin on 04/29. Patient eating well. Will start once daily NPH to target this. Will loosen carb ratio with NPH on board. PLAN FOR INPATIENT GLYCEMIC CONTROL: * Basal insulin - increased Lantus * Lantus 15-20 units SC BID (20 units for BSGs above 120 mg/dL) * NPH 20 units SC once daily - to be given with prednisone * Bolus insulin - tightened carb ratio * NovoLog per scale ACHS or Q6hrs while NPO * Goal Range: Low 110 mg/dL - High 140 mg/dL * Correction Factor: 15 mg/dL/unit * Nutritional / Prandial insulin per carb ratio of 1 unit per 2.5 grams CHO consumed PLAN FOR DISCHARGE: * A1c 7.7% 04/08/21, likely continue home regimen.
[2021-05-02] MEDS: WARFARIN SOD 7.5 MG TAB PO SCH (16:15)
[2021-05-02] MEDS: CALCIUM CARBONATE 1250MG TAB PO SCH (21:07)
[2021-05-02] MEDS: allopurinoL 100 MG TAB PO SCH (21:07)
[2021-05-02] MEDS: ATORVASTATIN 40 MG TAB PO SCH (21:09)
[2021-05-02] MEDS: CHOLECALCIFEROL 1,000 UNITS 25 MCG TAB PO SCH (21:10)
[2021-05-02] MEDS: ACETAMINOPHEN 325 MG TAB PO PRN (23:37)
[2021-05-03] MEDS: NITROGLYCERIN SL 0.4 MG/TAB TAB SL PRN ×6 (04:22→20:56)
--- NOTE | 2021-05-03 06:28 | Hospitalist Progress Note ---
Date of Service May 03, 2021 Assessment & Plan (1) Chest pain: (2) CAD (coronary artery disease): (3) PAF (paroxysmal atrial fibrillation): (4) Aortic valve replaced: (5) Weakness: (6) Generalized weakness: (7) Interstitial lung disease: (8) Polymyositis: (9) Rheumatoid arthritis: (10) Chronic use of steroids: (11) Anxiety: (12) Chronic kidney disease, stage 3a: (13) Anemia: Plan: 1. Chest pain. Known coronary artery disease. PAF, AVR. EKG revealed no acute changes. No recurrent pain. No rub. Discussed with him. Will follow for now. Continue warfarin for PAF. On no A-V elysia blocking agent 2. Generalized weakness, chronic ambulatory dysfunction with exacerbation. No etiology discovered. Was doing better until dose of prednisone was lowered. Will increase to 30 mg and follow. Undergoing physical, Occupational therapy. 3. ILD. Polymyositis RA overlap. 30 mg prednisone today. He states that he will follow up with Rheum and PCP as outpatient. OnTrelegy for a possible reactive airway disease component to his ILD 4. Generalized anxiety. Situational. Presently on BuSpar. Evaluated by Psychiatry while hospitalized 05/2020. Fearful about his general health, and upcoming discharge with no one else to care for him. 5. DM. Insulins adjusted by hospital pharmacy. Was on Lantus 20 units BID, Novolog with evening meal. Will continue to follow 6. Chronic anemia. Recheck numbers Admission and Anticipated Discharge Date Admission Date: May 01, 2021 Subjective Admitted 04/28/2021 with generalized weakness. Workup revealed no specific cause. [place] to be secondary to viral illness versus flare of his polymyositis. Treated with high-dose steroids with quick deescalation. No infectious etiology identified. Is generally improving. Strength improving. Appetite improving. Has generalized anxiety. Has been quite fearful regarding discharge. He lives alone. His family lives next door but they are out of town until the end of this week. He is afraid that medically he will decompensate and lb nobody to help him. Yesterday was started on as needed buspirone. During hospitalization 07/2020, was seen by psychiatric service for evaluation. This was after prolonged stay for his lumbar laminectomy. It felt no intervention was necessary at that time. Early this morning approximately 4:00 a.m. complained of left upper chest pain with radiation to left jaw. Nitroglycerin given with relief. EKG obtained. Has had no further complaints EKG interpreted by me = sinus chemo, low limb lead voltage, no acute ST changes. No change from prior He has a history of CAD, a prosthetic aortic valve replacement (2003) and paroxysmal A-fib. His records indicate that he does have coronary disease and has had a left main stent placed in 2917. History of autoimmune pericarditis 2018. Treated with steroids. Reportedly cardiac cath at that time reveal patent stent. Last echocardiogram 02/14/2021 revealed normal LV function with mild concentric LVH. LVEF 55-60%. No wall motion abnormalities. He has polymyositis, associated interstitial lung disease. Follows routinely with Rheumatology. Yesterday had Zoom session with Rheumatology [facility]. Unfortunately, no new suggestions were offered due to [place] not having most recent imaging and labs. Denies cough, shortness of breath. Presently on 20 mg prednisone. Usual dose 10 mg as outpatient. With decrease to 20 mg he states that he is worse- more arthralgias, more .fatigue Appetite has been improving. Insulin regimen adjusted by hospital pharmacy. regimen at home was Lantus 20 units twice a day, NovoLog 20 units with evening meal. A1c 7.7 on 04/08/2021. Review of Systems Review of Systems: GENERAL: generally improving in terms of strength, attitude. HEENT: No headaches Respiratory: No cough, shortness of breath, wheezing or exertional dyspnea Cardiovascular: As per subjective GI: Appetite improving. MSK: Strength improving NEUROLOGY: No focal neurological signs or symptoms. Psychiatric: as per HPI Physical Exam Physical Exam: In general: Not distressed. Skin: No obvious rash. Respiratory: Good air flow, no Rales wheezes or rhonchi. Cardiovascular: Regular. [place] valve sound with soft systolic murmur. No rub. Lower extremities: No edema. Abdomen: Soft, good bowel sounds. No appreciable hepatosplenomegaly masses or tenderness Extremities:/musculoskeletal: Grossly full range of motion of major joints. Gait without ataxia. Neuro exam: fine resting tremor Psychiatric: Alert. Mood and affect appropriate. Results & Data Results & Data ([facility]) Vital Signs (Past 12 Hours) Vital Signs Temp Pulse Pulse Resp BP BP Pulse Ox 05/03/21 04:55 97.9 F 60 17 118/63 97 05/03/21 04:06 97.5 F L 57 L 18 144/77 H 99 05/02/21 22:16 98.1 F 60 16 113/63 96 PG Care Time/CCT Total # of Minutes Spent Total Time Spent with Patient: Total time spent is greater than 50% in coordination of care (as documented) at patient's floor/unit and/or counseling patient: Coding Level of Care Code 60489 Subseq Hosp Care Lvl 3 Diagnoses Chest pain R07.2 Chest pain type: precordial pain CAD (coronary artery disease) I25.10 Associated angina: without angina Coronary Disease-Associated Artery/Lesion type: [place] artery [place] vs. transplanted heart: [place] heart PAF (paroxysmal atrial fibrillation) I48.0 Aortic valve replaced Z95.2 Weakness R53.1 Generalized weakness R53.1 Interstitial lung disease J84.9 Polymyositis M33.20 Rheumatoid arthritis M06.9 Rheumatoid arthritis location: unspecified site Rheumatoid factor presence: unspecified presence Chronic use of steroids Anxiety F41.9 Chronic kidney disease, stage 3a N18.3 Anemia D64.9 Anemia type: unspecified type (1) Rheumatoid arthritis Rheumatoid arthritis location: unspecified site Rheumatoid factor presence: unspecified presence Qualified Code(s): M06.9 - Rheumatoid arthritis, u nspecified (2) CAD (coronary artery disease) Associated angina: without angina Coronary Disease-Associated Artery/Lesion type: [place] artery [place] vs. transplanted heart: [place] heart Qualified Co de(s): I25.10 - Atherosclerotic heart disease of [place] coronary artery without angina pectoris (3) Chest pain Chest pain type: precordial pain Qualified Code(s): R07.2 - Precordial pain (4) Anemia Anemia type: unspecified type Qualified Code(s): D64.9 - Anemia, unspecified
[2021-05-03] MEDS: FLUTICASONE FUROATE 100MCG 14 PUFFS/INHALER INH SCH (08:57)
[2021-05-03] MEDS: UMECLIDINIUM/VILANTEROL 62.5/25MCG 7 PUFFS/INHALER INH SCH (08:58)
[2021-05-03] MEDS: SENNA 8.6 MG TAB PO SCH (08:58)
[2021-05-03] MEDS: CARBIDOPA/LEVODOPA 25/100MG TAB PO SCH ×3 (08:59→21:26)
[2021-05-03] MEDS: levETIRAcetam 500 MG TAB PO SCH ×2 (08:59→22:07)
[2021-05-03] MEDS: ASPIRIN 81 MG ECTAB PO SCH (08:59)
[2021-05-03] MEDS: GABAPENTIN 300 MG CAP PO SCH ×2 (08:59→21:25)
[2021-05-03] MEDS: TOPIRAMATE 100 MG TAB PO SCH ×2 (09:00→21:25)
[2021-05-03] MEDS: FINASTERIDE 5 MG TAB PO SCH (09:00)
[2021-05-03] MEDS: FEXOFENADINE HCL 180 MG TAB PO SCH (09:00)
[2021-05-03] MEDS ORDERED: INSULIN HUMAN NPH SC SCH (09:00)
[2021-05-03] MEDS: FUROSEMIDE 20 MG TAB PO SCH (09:00)
[2021-05-03] MEDS: predniSONE 20 MG TAB PO SCH (09:01)
[2021-05-03] MEDS: PANTOprazole 40 MG TAB PO SCH (09:01)
[2021-05-03] MEDS: POLYETHYLENE (MIRALAX) 17 GM PACK PO SCH ×3 (09:05→21:26)
[2021-05-03] MEDS: POTASSIUM CHLORIDE 10 MEQ TABCR PO SCH (09:05)
[2021-05-03] MEDS: INSULIN GLARGINE SOLOSTAR 100 UNITS/ML 3 ML PEN SC SCH ×2 (09:07→21:24)
[2021-05-03] MEDS: INSULIN ASPART PER UNIT SC SCH ×4 (09:07→21:24)
--- NOTE | 2021-05-03 11:57 | Electrocardiogram Report ---
Test Reason : Blood Pressure : / mmHG Vent. Rate : 059 BPM Atrial Rate : 059 BPM P-R Int : 178 ms QRS Dur : 090 ms QT Int : 444 ms P-R-T Axes : 071 015 088 degrees QTc Int : 439 ms Sinus bradycardia Nonspecific T wave abnormality Abnormal ECG When compared with ECG of 28-APR-2021 09:40, T wave inversion now evident in Anterior leads Confirmed by Josh Vora ([id number]) on 05/03/2021 11:56:56 AM Referred By: REFERRED SELF Confirmed By:Josh Vora
[2021-05-03] MEDS: busPIRone 5 MG TAB PO PRN ×2 (12:09→20:48)
--- NOTE | 2021-05-03 14:13 | Electrocardiogram Report ---
Test Reason : Blood Pressure : / mmHG Vent. Rate : 074 BPM Atrial Rate : 074 BPM P-R Int : 140 ms QRS Dur : 082 ms QT Int : 410 ms P-R-T Axes : 032 019 121 degrees QTc Int : 455 ms Normal sinus rhythm Nonspecific T wave abnormality Abnormal ECG When compared with ECG of 03-MAY-2021 04:11, T wave inversion no longer evident in Anterior leads Confirmed by Josh Vora ([id number]) on 05/03/2021 2:13:04 PM Referred By: REFERRED SELF Confirmed By:Josh Vora
[2021-05-03] MEDS: WARFARIN SOD 7.5 MG TAB PO SCH (16:50)
[2021-05-03] MEDS ORDERED: LORazepam 0.5 MG TAB PO PRN (21:14)
[2021-05-03] MEDS: allopurinoL 100 MG TAB PO SCH (21:25)
[2021-05-03] MEDS: ATORVASTATIN 40 MG TAB PO SCH (21:26)
[2021-05-03] MEDS: CALCIUM CARBONATE 1250MG TAB PO SCH (21:26)
[2021-05-03] MEDS: CHOLECALCIFEROL 1,000 UNITS 25 MCG TAB PO SCH (21:26)
--- NOTE | 2021-05-04 05:39 | Hospitalist Progress Note ---
Date of Service May 04, 2021 Assessment & Plan (1) Chest pain: (2) CAD (coronary artery disease): (3) PAF (paroxysmal atrial fibrillation): (4) Aortic valve replaced: (5) Generalized weakness: (6) Interstitial lung disease: (7) Polymyositis: (8) Rheumatoid arthritis: (9) Anxiety: Plan: 1. Recurrent chest pain. Known coronary artery disease. PAF, AVR. Presently asymptomatic. No pericardial rub on exam. in view of recurrent nature of pain, will consult cardiology (seen by them in the past). Patient believes that his pain is secondary to anxiety. 2. Generalized weakness, chronic ambulatory dysfunction with exacerbation. No etiology discovered. Was doing better until dose of prednisone was lowered. Now once again better on 30 mg. Keep the same and follow for now. Undergoing physical, Occupational therapy. 3. ILD with Polymyositis RA overlap. According to last viewed Pulmonary note, it is unclear if his ILD is secondary to his polymyositis/RA overlap syndrome. Presently asymptomatic. He states that he will follow up with Rheum and PCP as outpatient. On Trelegy for a possible reactive airway disease component to his ILD 4. Generalized anxiety. Situational.Presently on BuSpar. Evaluated by Psychiatry while hospitalized 05/2020. Fearful about his general health, and upcoming discharge with no one else to care for him. we discussed Assisted Living option and he is interested. Can be pursued as outpatient 5. DM. Insulins adjusted by hospital pharmacy. Was on Lantus 20 units BID, Novolog with evening meal. Will continue to follow 6. Chronic anemia.Hgb stable. Multifactorial Admission and Anticipated Discharge Date Admission Date: May 01, 2021 Subjective Several episodes of chest pain yesterday. Promptly relieved with nitroglycerin. EKGs no acute changes. Difficult to discern whether anxiety related or symptomatic coronary disease. He has a history of CAD, a prosthetic aortic valve replacement (2003) and paroxysmal A-fib. Underwent LAD stent 2018. History of autoimmune pericarditis 2019. Treated with steroids. Reportedly cardiac cath at that time reveal patent stent ([place]). Last echocardiogram 02/14/2021 revealed normal LV function with mild concentric LVH. LVEF 55-60%. No wall motion abnormalities. With his pain last pm, was given SL Nitro but also lorazepam. Has been quite fearful regarding discharge. He lives alone. His family lives next door but they are out of town were planning not to return until the end of the week. However, he learned last PN that they are returning tonight. Emotionally he is feeling much better. He was also started on Buspar and he feels that it helps. Given lorazepam last PM During hospitalization 07/2020, was seen by psychiatric service for evaluation. This was after prolonged stay for his lumbar laminectomy. It felt no intervention was necessary at that time. Admitted 04/28/2021 with generalized weakness. Workup revealed no specific cause. [place] to be secondary to viral illness versus flare of his polymyositis. Treated with high-dose steroids with quick deescalation. improved with higher dose steroids. He was decreased to 20 mg. At that time he stated symptomatically he worsened with increasing myalgias, joint pain and weakness. Yesterday, increased prednisone dose to 30 mg. Usual outpatient dose 10 mg. On 30mg feeling better. Less pain, stronger Appetite has been improving. Insulin regimen adjusted by hospital pharmacy. regimen at home was Lantus 20 units twice a day, NovoLog 20 units with evening meal. A1c 7.7 on 04/08/2021. Review of Systems Review of Systems: as per subjective Physical Exam Physical Exam: In general: Not distressed. Happy today Skin: No obvious rash. Respiratory: Decreased at based but clear Cardiovascular: Regular. [place] valve sound with soft systolic murmur. No rub. Lower extremities: No edema. Abdomen: Soft, good bowel sounds. No appreciable hepatosplenomegaly masses or tenderness Extremities:/musculoskeletal: Grossly full range of motion of major joints. Gait without ataxia. Neuro exam: Fine resting tremor Psychiatric: Alert. Mood and affect appropriate. Results & Data Results & Data ([facility]) Vital Signs (Past 12 Hours) Vital Signs Temp Pulse Resp BP Pulse Ox 05/03/21 23:25 98.1 F 61 20 118/66 97 PG Care Time/CCT Total # of Minutes Spent Total Time Spent with Patient: Total time spent is greater than 50% in coordination of care (as documented) at patient's floor/unit and/or counseling patient: Coding Level of Care Code 01240 Subseq Hosp Care Lvl 3 Diagnoses Chest pain R07.2 Chest pain type: precordial pain CAD (coronary artery disease) I25.10 Associated angina: without angina Coronary Disease-Associated Artery/Lesion type: [place] artery [place] vs. transplanted heart: [place] heart PAF (paroxysmal atrial fibrillation) I48.0 Aortic valve replaced Z95.2 Generalized weakness R53.1 Interstitial lung disease J84.9 Polymyositis M33.20 Rheumatoid arthritis M06.9 Rheumatoid arthritis location: unspecified site Rheumatoid factor presence: unspecified presence Anxiety F41.9 (1) Rheumatoid arthritis Rheumatoid arthritis location: unspecified site Rheumatoid factor presence: unspecified presence Qualified Code(s): M06.9 - Rheumatoid arthritis, unspecified (2) CAD (coronary artery disease) Associated angina: without angina Coronary Disease-Associated Artery/Lesion type: [place] artery [place] vs. transplanted heart: [place] heart Qualified Code(s): I25.10 - Atherosclerotic heart disease of [place] coronary artery without angina pectoris (3) Chest pain Chest pain type: precordial pain Qualified Code(s): R07.2 - Precordial pain
[2021-05-04 06:48] LABS: Basophils # (auto) 0.01 K/uL (0-0.2); Basophils % (auto) 0.2 %; Eosinophils # (auto) 0.21 K/uL (0-0.5); Eosinophils % (auto) 3.6 %; Hemoglobin 10.1 g/dL (14.0-18.0); Immature Granulocytes # (auto) 0.08 K/uL (0.00-0.02); Immature Granulocytes % (auto) 1.4 %; Lymphocytes # (auto) 0.89 K/uL (1.2-3.4); Lymphocytes % (auto) 15.2 %; Mean Corpuscular Hemoglobin 25.1 pg (25-34); Mean Corpuscular Hgb Conc 30.6 g/dL (32-36); Mean Corpuscular Volume 81.9 fL (80-100); Mean Platelet Volume 9.5 fL (7.4-10.4); Monocytes # (auto) 0.37 K/uL (0.11-0.59); Monocytes % (auto) 6.3 %; Neutrophils # (auto) 4.28 K/uL (1.4-6.5); Neutrophils % (auto) 73.3 %; Platelet Count 159 K/uL (130-400); RDW Coefficient of Variation 16.4 % (11.5-14.5); RDW Standard Deviation 49.4 fL (36.4-46.3); Red Blood Count 4.03 M/uL (4.7-6.1); White Blood Count 5.84 K/uL (4.8-10.8)
[2021-05-04 07:14] LABS: Albumin Level 2.9 gm/dl (3.4-5.0); BUN Creatinine Ratio 31.2 (10-20); Calcium 8.8 mg/dl (8.5-10.1); Creatinine Clr Calc Pharmacy 64.1 ml/min; Est GFR (African American) 66.3 ml/min; Est GFR (Non-African American) 57.2 ml/min; Potassium 3.5 mmol/L (3.5-5.1)
[2021-05-04 07:17] LABS: Bilirubin,Total 0.7 mg/dl (0.2-1); Total Protein 5.9 gm/dl (6.4-8.2)
[2021-05-04] MEDS: FEXOFENADINE HCL 180 MG TAB PO SCH (08:35)
[2021-05-04] MEDS: GABAPENTIN 300 MG CAP PO SCH ×2 (08:35→21:02)
[2021-05-04] MEDS: TOPIRAMATE 100 MG TAB PO SCH ×2 (08:35→21:03)
[2021-05-04] MEDS: FINASTERIDE 5 MG TAB PO SCH (08:36)
[2021-05-04] MEDS: levETIRAcetam 500 MG TAB PO SCH ×2 (08:36→21:02)
[2021-05-04] MEDS: FUROSEMIDE 20 MG TAB PO SCH (08:36)
[2021-05-04] MEDS: ASPIRIN 81 MG ECTAB PO SCH (08:36)
[2021-05-04] MEDS: PANTOprazole 40 MG TAB PO SCH (08:36)
[2021-05-04] MEDS: CARBIDOPA/LEVODOPA 25/100MG TAB PO SCH ×3 (08:37→21:00)
[2021-05-04] MEDS: predniSONE 20 MG TAB PO SCH (08:37)
[2021-05-04] MEDS: FLUTICASONE FUROATE 100MCG 14 PUFFS/INHALER INH SCH (08:38)
[2021-05-04] MEDS: SENNA 8.6 MG TAB PO SCH (08:38)
[2021-05-04] MEDS: UMECLIDINIUM/VILANTEROL 62.5/25MCG 7 PUFFS/INHALER INH SCH (08:38)
[2021-05-04] MEDS: POLYETHYLENE (MIRALAX) 17 GM PACK PO SCH ×2 (08:59→21:03)
[2021-05-04] MEDS: POTASSIUM CHLORIDE 10 MEQ TABCR PO SCH (09:00)
[2021-05-04] MEDS ORDERED: predniSONE 20 MG TAB PO SCH (09:00)
[2021-05-04] MEDS: INSULIN GLARGINE SOLOSTAR 100 UNITS/ML 3 ML PEN SC SCH ×2 (09:06→20:58)
[2021-05-04] MEDS: INSULIN HUMAN NPH SC SCH (09:09)
[2021-05-04] MEDS: INSULIN ASPART PER UNIT SC SCH ×4 (09:14→20:58)
[2021-05-04] MEDS ORDERED: predniSONE 10 MG TABLET PO ONE (10:30)
--- NOTE | 2021-05-04 11:13 | Cardiology Consultation ---
Date of Consultation May 04, 2021 Assessment & Plan (1) Left-sided chest wall pain: -not likely cardiac in origin as history atypical. -suspect may be related to anxiety and/or his polymyositis. -no further cardiac evaluation necessary. -stable for hospital discharge. -follow-up with Dr. Chau. (2) CAD (coronary artery disease): -s/p left main stent in February 2019 -patent stent at time of cardiac catheterization in April 2019. -mild diffuse disease elsewhere. (3) History of aortic valve replacement: -s/p mechanical AVR 2003. -concurrent repair of ascending thoracic aneurysm. -normally functioning mechanical aortic valve on echocardiogram January 2021. -continue warfarin. (4) PAF (paroxysmal atrial fibrillation): -currently in sinus rhythm by physical examination. -does not require rate controlling medications. -continue warfarin. History of Present Illness Attending Physician: Jone Terry MD History of Present Illness Mr. Bradford 76-year-old male admitted on April 28 with complaints of weakness, fatigue, exertional dyspnea, and nonproductive cough. The patient experienced a chest pain syndrome, and therefore, this consultation was ordered. Of note, the patient typically follows with Dr. Chau in the outpatient setting. The patient's workup while hospitalized has been unremarkable. It is felt that his presenting complaints were related to a flare of his polymyositis. In any event, he developed a sharp discomfort in left shoulder, left neck, left upper extremity in the violin repairer hours yesterday. There were no associated symptoms such as shortness of breath, nausea, vomiting, or diaphoresis. Patient explains that he was quite anxious at the time contemplating discharged home with no family members available to help in his care. Total duration of his discomfort was approximately 40-50 minutes. An EKG noted normal sinus rhythm with a nonspecific T-wave abnormality. This was unchanged from prior tracings. He had 2 further episodes during the day yesterday as described above. Again, these occurred at the time when he felt anxious. At no time has he noticed discomfort while physically active. The patient does carry history of coronary artery disease having undergone placement of a stent in the left main coronary artery in February 2019. A cardiac catheterization in April 2019 noted a patent left main stent and mild diffuse disease within the LAD, LCx, and RCA. The patient also underwent placement of a mechanical aortic valve and repair of an ascending thoracic aneurysm at the time of an acute dissection in 2003. An echocardiogram performed on February 14, 2021 noted normal systolic function with ejection fraction 55-60%. There was mild LVH and a properly functioning mechanical aortic valve. There is also mild mitral regurgitation. Currently, patient is resting comfortably in bed without complaints. Past medical and surgical history 1. Coronary artery disease-see above 2. Left main stent-February 2019 3. Patent stent-April 2019 4. Mechanical AVR-2003 5. Ascending thoracic aortic aneurysm repair-2003 6. Paroxysmal atrial fibrillation 7. Hypertension 8. Mild LVH 9. Mild mitral regurgitation 10. Hypercholesterolemia 11. Diabetes mellitus 12. GERD 13. Interstitial lung disease, oxygen dependent 14. Parkinson's disease 15. Rheumatoid arthritis 16. Polymyositis 17. Prostate carcinoma-XRT 18. Anemia of chronic disease 19. Seizure disorder 20. Lumbar laminectomy 21. C-spine fusion 22. Gastric bypass 23. Cholecystectomy 24. 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 Allergies Allergy/AdvReac Type Severity Reaction Status Date / Time Iodinated Contrast Media Allergy Severe Anaphylaxis Verified 04/28/21 10:15 shellfish derived Allergy Severe Anaphylaxis Verified 04/28/21 10:15 tamsulosin [From Flomax] Allergy Intermediate Itching Unverified 04/28/21 10:15 Tetanus Vaccines and Toxoid Allergy Unknown Unknown Verified 04/28/21 10:15 Home Medications Medication Instructions Recorded Confirmed Type albuterol sulfate 90 mcg/actuation 2 puff INHALATION Q4H PRN 01/20/20 04/28/21 History aerosol inhaler (Ventolin HFA) cholecalciferol (vitamin D3) 50 2,000 unit PO HS 01/20/20 04/28/21 History mcg (2,000 unit) capsule (Vitamin D3) nitroglycerin 0.4 mg sublingual 0.4 mg SUBLINGUAL DIRECTED PRN 01/20/20 04/28/21 History tablet atorvastatin 40 mg tablet 40 mg PO HS 05/28/20 04/28/21 History insulin aspart U-100 100 unit/mL 0 unit SUBCUT ACHS 09/04/20 04/28/21 History (3 mL) subcutaneous pen (Novolog Flexpen U-100 Insulin aspart) aspirin 81 mg tablet,delayed 81 mg PO QAM 10/09/20 04/28/21 History release (Adult Low Dose Aspirin) sennosides 8.6 mg tablet (Senokot) 17.2 mg PO QAM 10/19/20 04/28/21 History gabapentin 300 mg capsule 300 mg PO BID #180 cap 12/28/20 04/28/21 Rx insulin NPH isoph U-100 human 100 See Rx Instructions .ROUTE 01/12/21 04/28/21 Rx unit/mL subcutaneous suspension .COMPLEX #10 ml (Novolin N NPH U-100 Insulin isophane) insulin glargine 100 unit/mL (3 20 unit SUBCUT BID #0 ml 01/12/21 04/28/21 Rx mL) subcutaneous pen (Lantus Solostar U-100 Insulin) calcium carbonate 600 mg calcium 600 mg PO HS 02/11/21 04/28/21 History (1,500 mg) tablet (Calcium) fexofenadine 180 mg tablet 180 mg PO QAM 02/11/21 04/28/21 History (Karlee Allergy) fluticasone fur. 100 mcg-umeclid 1 inh INHALATION QAM 02/11/21 04/28/21 History 62.5 mcg-vilant 25 mcg inhalat.powder (Trelegy Ellipta) lactobacillus combination no.4 3 3,000 mmu cells PO QAM 02/11/21 04/28/21 History billion cell capsule (Probiotic) levetiracetam 1,000 mg tablet 1,000 mg PO BID 02/11/21 04/28/21 History (Keppra) potassium chloride 10 mEq 10 meq PO QAM 02/11/21 04/28/21 History tablet,extended release (K-Tab) prednisone 5 mg tablet 5 mg PO QAM 02/11/21 04/28/21 History topiramate 100 mg tablet (Topamax) 100 mg PO BID 02/11/21 04/28/21 History warfarin 10 mg tablet (Jantoven) 7.5 mg PO HS 02/11/21 04/28/21 History furosemide 20 mg tablet (Lasix) 20 mg PO DAILY #30 tab 03/14/21 04/28/21 Rx allopurinol 100 mg tablet 100 mg QPM 04/10/21 04/28/21 History finasteride 5 mg tablet 5 mg PO QAM 04/28/21 04/28/21 History polyethylene glycol 3350 17 17 g PO DAILY PRN 04/28/21 04/28/21 History gram/dose oral powder (Miralax) carbidopa 25 mg-levodopa 100 mg See Rx Instructions .ROUTE 05/02/21 Rx tablet .COMPLEX #270 tab Patient History Medical History Abnormal CT scan, chest Abnormal CT scan, chest Acute hyperglycemia Acute left-sided muscle weakness Anemia CAD (coronary artery disease) Chest pain Chronic pulmonary aspiration Dehydration Diabetes Dyspnea on exertion Fall Fall Fluid overload HLD (hyperlipidemia) Hypoxia Interstitial lung disease Interstitial lung disease Interstitial lung disease Interstitial lung disease due to connective tissue disease Lung nodule Neurogenic claudication Nocturnal hypoxemia Nocturnal hypoxia Palliative care encounter Polymyositis Polymyositis Polymyositis Prostate cancer s/p XRT Rheumatoid arthritis Rheumatoid arthritis Shortness of breath Stroke-like symptom 12/2019, w/ blurry vision and dysarthria. mild R sided wkness. attending outpatient physical therapy w/ good improvement in strength (5+/5 strength of all 4 extremities as of 05/28/20) Subtherapeutic international normalized ratio (INR) Supratherapeutic INR Thoracic ascending aortic aneurysm s/p repair Weakness Surgical History H/O hernia repair History of aortic valve replacement mechanical History of cholecystectomy History of fusion of cervical spine History of gastric bypass lap band History of heart artery stent History of lung biopsy 2019 History of partial nephrectomy Family History Mother , age 87 of pulmonary issues Rheumatoid arthritis Father , in his mid 80s of a stroke Stroke Other Coronary heart disease Social History Smoking Status: Never smoker Second Hand Exposure: No; Hx Alcohol Use: No Hx Substance Use: No Preferred Language: Turkmen Communication Ability: Effective Hearing Ability: Hard of Hearing Sash Finisher Required: No Beliefs That Will Affect Care: None marital status: / Current Living Situation: Alone Current Living Situation Comment: Personal care comes in 3 times a week and son lives next door current occupational status: retired 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 HEENT exam is negative. Neck is supple with full carotid upstrokes. There are no carotid bruits. Jugular venous pressure is flat at 90. There is no thyromegaly. Cardiovascular exam reveals a regular rhythm with crisp mechanical valve sounds. A 1/6 basal systolic ejection murmurs noted. No S3. Lungs are clear without rales, rhonchi, or wheezes. Chest reveals a well-healed midline scar. Abdomen is soft and nontender without bruits. Extremities reveal intact radial artery and posterior tibial pulses bilaterally. There is no peripheral edema. Results & Data ([facility]) Vital Signs (Past 12 Hours) Vital Signs Temp Pulse Resp BP BP Pulse Ox 05/04/21 07:08 36.3 C L 58 L 20 121/72 100 05/03/21 23:25 36.7 C 61 20 118/66 97 Laboratory Results CBC notes hemoglobin 10.1, hematocrit 33.0, white count 5.8, platelet count 159 1000. Electrolytes note a sodium of 141, potassium 3.5, chloride 112, bicarb 23, BUN 30, creatinine 1.2, and glucose of 98. Diagnostic Findings EKG notes normal sinus rhythm with a nonspecific T-wave abnormality. This is unchanged from prior tracings. PG Care Time/CCT Total # of Minutes Spent Total Time Spent with Patient: Total time spent is greater than 50% in coordination of care (as documented) at patient's floor/unit and/or counseling patient: Coding Level of Care Code 46360 Initial Inpt Care Lvl 3 Diagnoses Left-sided chest wall pain R07.89 CAD (coronary artery disease) I25.10 Coronary Disease-Associated Artery/Lesion type: [place] artery [place] vs. transplanted heart: [place] heart Associated angina: without angina History of aortic valve replacement Z95.2 PAF (paroxysmal atrial fibrillation) I48.0 (1) CAD (coronary artery disease) Coronary Disease-Associated Artery/Lesion type: [place] artery [place] vs. transplanted heart: [place] heart Associated angina: without angina Qualified Code(s): I25.10 - Atherosclerotic heart disease of [place] coronary artery without angina pectoris
--- NOTE | 2021-05-04 15:23 | Pharmacy Report ---
Pharmacy Glycemic Short Note 2 - Date of Service May 04, 2021 - Glycemic Short BSG Results (Last 24 hours): 05/03/21 05/03/21 05/04/21 16:48 20:43 06:32 Glucose 98 POC Glucose 189 H 210 H 05/04/21 05/04/21 07:34 11:52 Glucose POC Glucose 91 172 H OUTPATIENT ANTIDIABETIC REGIMEN: * Lantus 20 units SC BID * Novolog 20 units SC ACHS * NPH 1 unit SC per 1 mg prednisone * HbA1c = 7.7% (04/08/21) ASSESSMENT: 05/04: * Xavi received 106 units of insulin yesterday (15 NPH, 35 units Lantus, 56 units Novolog) * Yesterday, NPH dose was decreased. Post prandial BSGs were all above goal. In addition to this, prednisone dose was has been increased to 30 mg. * will increase NPH back to 20 units daily. may need further increased tomorrow 05/02: * Patient received a total of 131 units of insulin yesterday (30 units Lantus + 20 units NPH + 81 units Novolog) * BSGs were uncontrolled: [phone] mg/dL * Fasting BSG was elevated at 154 mg/dL this AM * Will increase Lantus 15-30% today per scale * Steroid-induced hyperglycemia noted in postprandial BSGs throughout the day yesterday * Kept NPH dose at 20 units rather than decreasing * Tightened carb ratio slightly at lunch 1/2: * Xavi received 98 units of SQ insulin yesterday (25 units Lantus + 20 units NPH + 53 units novolog) * Fasting BSG of 139 mg/dL is slightly above goal. Continue Lantus dosed per BSG. * Post prandials improved after adding NPH to glycemic regimen. Prednisone dose will decrease to 20 mg starting tomorrow morning. Will decrease NPH. 04/30: * Xavi received 83 units of SQ insulin yesterday (30 units Lantus + 53 units of Novolog) * Fasting BSG at goal. Continue current Lantus order. * Post prandial hyperglycemia due to prednisone. He required 13 units of correction insulin on 04/29. Patient eating well. Will start once daily NPH to target this. Will loosen carb ratio with NPH on board. PLAN FOR INPATIENT GLYCEMIC CONTROL: * Basal insulin * Lantus 15-20 units SC BID (20 units for BSGs above 120 mg/dL) * NPH 20 units SC once daily - to be given with prednisone * Bolus insulin * NovoLog per scale ACHS or Q6hrs while NPO * Goal Range: Low 110 mg/dL - High 140 mg/dL * Correction Factor: 15 mg/dL/unit * Nutritional / Prandial insulin per carb ratio of 1 unit per 2.5 grams CHO consumed PLAN FOR DISCHARGE: * A1c 7.7% 04/08/21, likely continue home regimen.
[2021-05-04] MEDS: WARFARIN SOD 7.5 MG TAB PO SCH (16:11)
[2021-05-04] MEDS: CHOLECALCIFEROL 1,000 UNITS 25 MCG TAB PO SCH (21:01)
[2021-05-04] MEDS: CALCIUM CARBONATE 1250MG TAB PO SCH (21:01)
[2021-05-04] MEDS: allopurinoL 100 MG TAB PO SCH (21:02)
[2021-05-04] MEDS: ATORVASTATIN 40 MG TAB PO SCH (21:02)
[2021-05-04] MEDS: busPIRone 5 MG TAB PO PRN (21:03)
[2021-05-05] MEDS: NITROGLYCERIN SL 0.4 MG/TAB TAB SL PRN ×2 (00:13)
--- NOTE | 2021-05-05 05:38 | Hospitalist Progress Note ---
Date of Service May 05, 2021 Assessment & Plan Plan: 1. Generalized weakness, chronic ambulatory dysfunction with exacerbation. No etiology discovered. Was doing better until dose of prednisone was lowered. Now once again better on 30 mg. Will give 30mg today and plan taper 2. Chest pain. Low suspicion for angina. Anxiety? GERD with spasm (which may explain why NTG helps). He will follow up with GI 3. Coronary artery disease. PAF. S/p AVR. Appreciate cardiology consultation. Patient with intermittent chest pain syndrome felt to be anxiety related. 4. ILD with Polymyositis RA overlap.According to last viewed Pulmonary note, it is unclear if his ILD is secondary to his polymyositis/RA overlap syndrome. Presently asymptomatic. He states that he will follow up with Rheum and PCP as outpatient. On Trelegy, fluticasone for a possible reactive airway disease component to his ILD 5. Generalized anxiety. Situational.Presently on BuSpar, as needed lorazepam. Evaluated by Psychiatry while hospitalized 05/2020. Fearful about his general health, and upcoming discharge with no one else to care for him. We discussed Assisted Living option and he is interested. Can be pursued as outpatient 6. DM. Insulins adjusted by hospital pharmacy. Was on Lantus 20 units BID, Novolog with evening meal.Insulin adjusted while on higher doses of steroids. Will continue to follow 7. Chronic anemia.Hgb stable. Multifactorial etiology. He wishes discharge home today. Feel very comfortable managing his medical problems until re-evaluated by Dr. Gaspar Admission and Anticipated Discharge Date Admission Date: May 01, 2021 Subjective (PCP Josh Gaspar MD) Admitted 04/28/2021 with generalized weakness. Workup revealed no specific cause. [place] to be secondary to viral illness vs. flare of his polymyositis/RA. Treated with high-dose steroids with quick deescalation. Improved with higher dose steroids. He was decreased to 20 mg. At that time he stated symptomatically he worsened with increasing myalgias, joint pain and weakness. Yesterday, increased prednisone dose to 30 mg. (Usual outpatient dose 10 mg.) On 30mg feeling better. Less pain, stronger. Undergoing physical therapy. His physical activity is hampered by his rheumatoid arthritis, parkinsonism. He has interstitial lung disease. Also polymyositis /rheumatoid arthritis overlap. It has been unclear whether not his lung disease is related to his collagen vascular disease. He follows as an outpatient with Pulmonary. On supplemental oxygen. He has type 2 diabetes mellitus. Appetite has been improving. Insulin regimen adjusted by hospital pharmacy. regimen at home was Lantus 20 units twice a day, NovoLog 20 units with evening meal. A1c 7.7 on 04/08/2021. Has had chest pain while hospitalized. Evaluated by Cardiology yesterday. [place] pain was musculoskeletal and/or anxiety related. No further workup suggested. Another episode of chest pain early this morning relieved with nitroglycerin and Ativan. He has had anxiety syndrome, situational due to medical concerns. Placed on BuSpar. Also as needed lorazepam. He states that he also has GERD and was to be evaluated by GI as outpatient. He suspect reflux/spasm may be the cause of his discomfort. He has coronary artery disease. Underwent placement of a stent in the left main coronary artery in February 2019. A cardiac catheterization in April 2019 noted a patent left main stent and mild diffuse disease within the LAD, LCx, and RCA. The patient also underwent placement of a mechanical aortic valve and repair of an ascending thoracic aneurysm at the time of an acute dissection in 2003. An echocardiogram performed on February 14, 2021 noted normal systolic function with ejection fraction 55-60%. There was mild LVH and a properly functioning mechanical aortic valve. There is also mild mitral regurgitation. Case management met with patient yesterday. He is not interested in rehab, SNF. To me, he did express interest in assisted living once things are settled at home. Review of Systems Review of Systems: As per HPI Physical Exam Physical Exam: In general: Not distressed. Skin: No obvious rash. Respiratory: Decreased at bases but clear Cardiovascular: Regular. [place] valve sound with soft systolic murmur. No rub. Lower extremities: No edema. Abdomen: Soft, good bowel sounds. No appreciable hepatosplenomegaly masses or tenderness Extremities:/musculoskeletal: Grossly full range of motion of major joints. Gait without ataxia. Neuro exam: Fine resting tremor Psychiatric: Alert. Mood and affect appropriate. Results & Data Results & Data ([facility]) Vital Signs (Past 12 Hours) Vital Signs Temp Pulse Resp BP Pulse Ox 05/04/21 23:14 97.7 F 66 18 103/56 L 99 PG Care Time/CCT Total # of Minutes Spent Total Time Spent with Patient: Total time spent is greater than 50% in coordination of care (as documented) at patient's floor/unit and/or counseling patient: Coding
--- NOTE | 2021-05-05 08:22 | Discharge Summary ---
Date of Service May 05, 2021 Admission HPI Per Admitting Provider Xavi is a 76-year-old male with a history of CAD with PCI, DM, HLD, interstitial lung disease on home oxygen at night, polymyositis, prostate cancer status post XRT, RA, and warfarin anticoagulation for mechanical AV who presents to the ER for evaluation of malaise, fatigue, cough, and exertional dyspnea over the previous week. Reports he has some chest soreness which is across his chest and worse when he takes deep breaths or coughs. Has had increased nasal congestion and cough with a sore throat for 2 days. Endorses increasing weakness, has not been eating or drinking much in the previous few days. Has had home health services but they are away for at least a week, and his family is on vacation until 05/06. At bedside HPI patient reports he feels his polymyositis might be flaring. Feels more achy in his arms and legs when walking, more short of breath intermittently throughout the day. Decreased appetite x2-3 days. Kids normally next door but in [place] for the next week. Hasn't been drinking much water. No diarrhea/constipation/vomiting. +nausea improved with zofran. Last flare was a few months ago which improved with a prednisone taper. Last visit with [facility] he was told because his immune system was so compromised he would not likely tolerate MTX at that time. Saw Dr. Ortega pulmonology and was told his pulmonary function loss was acceleration and was prescribed Ofev but did not t eufemia this as was declined by insurance. Pending referral to [facility] (last there August 2019), video consult scheduled for May 02. on prednisone 10mg a day. Reports that last week he has had some sinus congestion and a nonproductive cough, decreased appetite and taking minimal p.o. liquids/food. Has some achy pain in his chest intermittently none at time of assessment, which he notes he has had in the past and seems to come up during his myositis/ILD flares. Denies syncope/presyncope, but endorses that between his weakness and SI dysfunction he is not able to ambulate around his home even with his walker. Admission Exam Per Admitting Provider General: A&Ox3. NAD. Cooperative. Appears fatigued but nontoxic. HEENT: Atraumatic, normocephalic. Visual acuity and hearing grossly intact, wearing hearing aids at time of assessment. Pupils equal and responsive to light. Pulm: Diminished, but grossly clear to auscultation without overt wheezes/rales/rhonchi. Symmetrical chest rise. No increase work of breathing. No respiratory distress. Cardiac: RRR, -mrg. Radial pulses intact and symmetrical. Chest nontender to palpation. Abdominal: Nontender, nondistended, soft. BS present. Extremities: Warm, dry. Pitting edema of the lower extremity right greater than left, at baseline per patient. Station intact to soft touch in hands and feet, prescription clerk lenses strength and ankle plantar flexion 5/5 and symmetrical. Ankle dorsiflexion 4/5 bilaterally. Principal Diagnosis Generalized weakness, chronic ambulatory dysfunction with exacerbation. Discharge Exam Constitutional WD/WN, vitals as above Eyes PERRL, conjunctivae normal, anicteric sclerae Respiratory normal respiratory effort, lungs clear to auscultation Cardiovascular RRR, no murmur, no edema Gastrointestinal (Abdomen) normal bowel sounds, soft, nontender, no hepatosplenomegaly Musculoskeletal Hip: hip normal to inspection and no joint line tenderness Neurologic PERRL, EOMI, accommodation nl, no face palsy, no dysarthria Discharge Data Allergies Allergy/AdvReac Type Severity Reaction Status Date / Time Iodinated Contrast Media Allergy Severe Anaphylaxis Verified 04/28/21 10:15 shellfish derived Allergy Severe Anaphylaxis Verified 04/28/21 10:15 tamsulosin [From Flomax] Allergy Intermediate Itching Unverified 04/28/21 10:15 Tetanus Vaccines and Toxoid Allergy Unknown Unknown Verified 04/28/21 10:15 Consultations 04/28/21 11:53 ED Decision to Admit Stat 05/04/21 08:47 Consult Cardiology Routine Ordered Studies 04/28/21 10:00 CT head/brain wo con Stat Hospital Course (1) Polymyositis: (2) Rheumatoid arthritis: (3) Weakness: (4) Chest pain: (5) CAD (coronary artery disease): (6) Aortic valve replaced: (7) Anxiety: (8) Diabetes: (9) Interstitial lung disease: (10) Nocturnal hypoxemia: (11) PAF (paroxysmal atrial fibrillation): 1. Generalized weakness, chronic ambulatory dysfunction with exacerbation. No etiology discovered. Was doing better until dose of prednisone was lowered. Now once again better on 30 mg. Will give 30mg today and plan taper as outpatient. 2. Chest pain. Low suspicion for angina. Anxiety? GERD with spasm (which may explain why NTG helps). He will follow up with GI/PCP 3. Coronary artery disease. PAF. S/p AVR. Appreciate cardiology consultation. Patient with intermittent chest pain syndrome felt to be anxiety related. 4. ILD with Polymyositis RA overlap.According to last viewed Pulmonary note, it is unclear if his ILD is secondary to his polymyositis/RA overlap syndrome. Presently asymptomatic. He states that he will follow up with Rheum and PCP as outpatient. On Trelegy, fluticasone for a possible reactive airway disease component to his ILD 5. Generalized anxiety. Situational.Presently on BuSpar, as needed lorazepam. Evaluated by Psychiatry while hospitalized 05/2020. Fearful about his general health, and upcoming discharge with no one else to care for him. We discussed Assisted Living option and he is interested. Can be pursued as outpatient 6. DM. Insulins adjusted by hospital pharmacy. Was on Lantus 20 units BID, Novolog with evening meal.Insulin adjusted while on higher doses of steroids. Will continue to follow 7. Chronic anemia.Hgb stable. Multifactorial etiology. Total Time Total Time Spent Total Time Spent (In Minutes): 35 Discharge Plan Discharge Items Patient Disposition: Home - Self-Care Reason For Visit: WEAKNESS, ?ILD FLARE Discharge Diagnosis: Generalized weakness, chronic ambulatory dysfunction with exacerbation. 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 Call Dr. Gaspar for follow up appointment. Continue usual glucose monitoring and Insulin treatment/coverage. Pending Studies at Discharge: No Stand-Alone Forms: My Hers, Smoking Cessation Medications and DC Order Prescriptions: New lorazepam 0.5 mg Tablet 0.5 mg PO BID Qty: 20 RF: 0 Continued carbidopa-levodopa 25-100 mg tablet See Rx Instructions .ROUTE .COMPLEX Qty: 270 RF: 0 furosemide [Lasix] 20 mg tablet 20 mg PO DAILY Qty: 30 RF: 0 gabapentin 300 mg capsule 300 mg PO BID Qty: 180 RF: 1 nitroglycerin 0.4 mg Tablet, Sublingual 0.4 mg sublingual DIRECTED PRN (Reason: Chest Pain) RF: 0 albuterol sulfate [Ventolin HFA] 90 mcg/actuation Hfa Aerosol Inhaler 2 puff INHALATION Q4H PRN (Reason: Wheezing) RF: 0 cholecalciferol (vitamin D3) [Vitamin D3] 50 mcg (2,000 unit) Capsule 2,000 unit PO HS RF: 0 atorvastatin 40 mg tablet 40 mg PO HS RF: 0 sennosides [Senokot] 8.6 mg tablet 17.2 mg PO QAM RF: 0 warfarin [Jantoven] 10 mg tablet 7.5 mg PO HS RF: 0 prednisone 5 mg tablet 5 mg PO QAM RF: 0 potassium chloride [K-Tab] 10 mEq tablet extended release 10 meq PO QAM RF: 0 fexofenadine [Karlee Allergy] 180 mg Tablet 180 mg PO QAM RF: 0 calcium carbonate [Calcium 600] 600 mg calcium (1,500 mg) Tablet 600 mg PO HS RF: 0 Probiotic 3 billion cell Capsule 3,000 mmu cells PO QAM RF: 0 topiramate [Topamax] 100 mg tablet 100 mg PO BID RF: 0 levetiracetam [Keppra] 1,000 mg tablet 1,000 mg PO BID RF: 0 Trelegy Ellipta 100-62.5-25 mcg blister with device 1 inh inhalation QAM RF: 0 polyethylene glycol 3350 [Miralax] 17 gram/dose Powder 17 g PO DAILY PRN (Reason: Constipation) RF: 0 finasteride 5 mg tablet 5 mg PO QAM RF: 0 insulin aspart U-100 [Novolog Flexpen U-100 Insulin] 100 unit/mL (3 mL) insulin pen 0 unit SUBCUT ACHS RF: 0 aspirin [Adult Low Dose Aspirin] 81 mg tablet,delayed release (DR/EC) 81 mg PO QAM RF: 0 Novolin N NPH U-100 Insulin 100 unit/mL Suspension See Rx Instructions .ROUTE .COMPLEX Qty: 10 RF: 0 Lantus Solostar U-100 Insulin 100 unit/mL (3 mL) insulin pen 20 unit SUBCUT BID Qty: 0 RF: 0 allopurinol 100 mg tablet 100 mg QPM RF: 0 Discharge Orders: Discharge Order (Routine); Ordered 05/05/21 Ordered By: Jone Terry Admission Data Admit Date/Time: 05/01/21 21:49 Attending Provider: Jone Terry Admit Provider: Jone Pringle Primary Care Provider: Josh Gaspar Other Providers: [facility] ; Jone Pringle ; Kilo Walters ; Jeet Covarrubias ; Josh Vora ; Shahid Cross ; Neal Gtz Jr ; Bhanu Mcdonald ; Adilia Briggs ; Asha Marlow ; Aidan Vincent ; Cody Soto ; Dayron Harvey ; Nancy Carrizales ; Sandrita Caruso ; Israel Gonzalez ; Iker Grover ; Josemanuel Bryant Coding Level of Care Code D/C DAY MANAGEMENT >30 MINS Diagnoses Polymyositis M33.20 Rheumatoid arthritis M06.9 Rheumatoid arthritis location: unspecified site Rheumatoid factor presence: unspecified presence Weakness R53.1 Chest pain R07.9 Chest pain type: unspecified CAD (coronary artery disease) I25.10 Coronary Disease-Associated Artery/Lesion type: [place] artery [place] vs. transplanted heart: [place] heart Associated angina: without angina Aortic valve replaced Z95.2 Anxiety F41.9 Diabetes E11.42; Z79.4 Diabetes mellitus type: type 2 Diabetes mellitus termite control representative insulin use: with snf use Diabetes mellitus complication status: with neurologic complications Diabetes mellitus complication detail: with polyneuropathy Interstitial lung disease J84.9 Nocturnal hypoxemia G47.34 PAF (paroxysmal atrial fibrillation) I48.0
[2021-05-05] MEDS ORDERED: predniSONE 10 MG TABLET PO SCH (09:00)
[2021-05-05] MEDS: levETIRAcetam 500 MG TAB PO SCH (09:06)
[2021-05-05] MEDS: CARBIDOPA/LEVODOPA 25/100MG TAB PO SCH (09:07)
[2021-05-05] MEDS: PANTOprazole 40 MG TAB PO SCH (09:07)
[2021-05-05] MEDS: ASPIRIN 81 MG ECTAB PO SCH (09:07)
[2021-05-05] MEDS: FEXOFENADINE HCL 180 MG TAB PO SCH (09:07)
[2021-05-05] MEDS: FINASTERIDE 5 MG TAB PO SCH (09:07)
[2021-05-05] MEDS: UMECLIDINIUM/VILANTEROL 62.5/25MCG 7 PUFFS/INHALER INH SCH (09:08)
[2021-05-05] MEDS: TOPIRAMATE 100 MG TAB PO SCH (09:08)
[2021-05-05] MEDS: FLUTICASONE FUROATE 100MCG 14 PUFFS/INHALER INH SCH (09:08)
[2021-05-05] MEDS: SENNA 8.6 MG TAB PO SCH (09:08)
[2021-05-05] MEDS: FUROSEMIDE 20 MG TAB PO SCH (09:09)
[2021-05-05] MEDS: GABAPENTIN 300 MG CAP PO SCH (09:09)
[2021-05-05] MEDS: POLYETHYLENE (MIRALAX) 17 GM PACK PO SCH (09:09)
[2021-05-05] MEDS: INSULIN GLARGINE SOLOSTAR 100 UNITS/ML 3 ML PEN SC SCH (09:11)
[2021-05-05] MEDS: INSULIN HUMAN NPH SC SCH (09:13)
[2021-05-05] MEDS: INSULIN ASPART PER UNIT SC SCH ×2 (09:19→13:02)
[2021-05-05] MEDS: POTASSIUM CHLORIDE 10 MEQ TABCR PO SCH (09:20)
[2021-05-05] MEDS ORDERED: INSULIN ASPART PER UNIT SC SCH ×2 (16:30)
--- NOTE | 2021-05-05 22:09 | Electrocardiogram Report ---
Test Reason : Blood Pressure : / mmHG Vent. Rate : 066 BPM Atrial Rate : 066 BPM P-R Int : 144 ms QRS Dur : 084 ms QT Int : 446 ms P-R-T Axes : 028 018 077 degrees QTc Int : 467 ms Normal sinus rhythm Normal ECG When compared with ECG of 03-MAY-2021 12:23, No significant change was found Confirmed by Bhanu Mcdonald ([id number]) on 05/05/2021 10:08:57 PM Referred By: REFERRED SELF Confirmed By:Bhanu Mcdonald
[2021-05-06] MEDS ORDERED: INSULIN ASPART PER UNIT SC SCH (07:30)
== END 2021-05-05 15:12 | disposition home health service (06) ==
LOC: EDINP 09:31 → ED 09:31 → SUATTDRO 12:57 → EDINP 13:28 → 3W 04-29 20:07 → SUATTDRO 05-01 21:49

== ENCOUNTER 2021-05-24 15:51 | Inpatient (IN) ==
[2021-05-24] MEDS ORDERED: ACETAMINOPHEN 325 MG TAB PO STA (16:56)
--- NOTE | 2021-05-24 17:00 | XRay Report ---
XR chest 2V PA/lateral CLINICAL HISTORY: SOB, cough TECHNIQUE: AP and lateral frontal radiograph of the chest was obtained. Comparison: Comparison is made to chest one view 04/28/2021 FINDINGS: No lines and tubes are seen. Cardiomegaly is noted. Faint bibasilar airspace opacities are seen. Ther e is a trace right pleural effusion. IMPRESSION: Faint bibasilar airspace opacities which may represent atelectasis, pneumonia, and/or aspiration. Tra ce right pleural effusion. ACT 112: Negative or not required by law. Electronically signed by: Russell Sifuentes M.D. 05/24/2021 4:59 PM
[2021-05-24 19:27] LABS: Basophils # (auto) 0.01 K/uL (0-0.2); Basophils % (auto) 0.2 %; Eosinophils # (auto) 0.16 K/uL (0-0.5); Eosinophils % (auto) 2.9 %; Hemoglobin 10.1 g/dL (14.0-18.0); Immature Granulocytes # (auto) 0.07 K/uL (0.00-0.02); Immature Granulocytes % (auto) 1.3 %; Lymphocytes # (auto) 0.77 K/uL (1.2-3.4); Mean Corpuscular Hemoglobin 24.2 pg (25-34); Mean Corpuscular Hgb Conc 29.7 g/dL (32-36); Mean Corpuscular Volume 81.3 fL (80-100); Mean Platelet Volume 9.3 fL (7.4-10.4); Monocytes # (auto) 0.32 K/uL (0.11-0.59); Monocytes % (auto) 5.8 %; Neutrophils # (auto) 4.18 K/uL (1.4-6.5); Neutrophils % (auto) 75.8 %; Platelet Count 190 K/uL (130-400); RDW Coefficient of Variation 16.7 % (11.5-14.5); RDW Standard Deviation 49.9 fL (36.4-46.3); Red Blood Count 4.18 M/uL (4.7-6.1); White Blood Count 5.51 K/uL (4.8-10.8)
--- NOTE | 2021-05-24 19:44 | Emergency Department Note ---
Impression & Plan Non-ST elevation CO (NSTEMI), AZUL (dyspnea on exertion) ED Provider Note NAME: OSBALDO AGUILAR AGE: 76 SEX: M : 1945 ARRIVES VIA: Walk-In INFORMANT: Patient, ED PROVIDER(S): Josh De La Rosa DO CHIEF COMPLAINT: Shortness of breath HPI: The patient is a 76-year-old male who presented to emergency department for an evaluation of shortness of breath. The patient states that he has had ongoing shortness of breath with exertion over the course the last week. He was recently admitted to our facility. He was discharged around the beginning of the month. He states his symptoms became worse over the last 3 days. He notices a cough which is sometimes productive. He has a history of underlying lung disease and states he may be having an exacerbation of his chronic lung problems but when he called his primary food products sales representative today he was referred to the emergency department. The patient specifically is asking for Covid testing. The patient has not seen his family doctor recently. He states he is up-to-date with all his medications. He does take a blood thinner. The patient denies having any worsening lower extremity swelling. He denies having any abdominal pain but does have some nausea. ROS: See above HPI for pertinent positives & negatives. A total of 10 systems re viewed and were otherwise negative. PAST MEDICAL HISTORY: See Below PAST SURGICAL HISTORY: See Below FAMILY HISTORY: See Below SOCIAL HISTORY: See Below HOME MEDICATIONS: See Below ALLERGIES: See Below VITALS: See Below PHYSICAL EXAMINATION: GENERAL: Patient is awake alert in no acute distress patient is resting comfortably and showing no signs of anxiety EYES: The conjunctivae are clear. The pupils are round and reactive. EARS, NOSE, MOUTH AND THROAT: The nose is without any evidence of any deformity. Mucous membranes are moist. Tongue is midline. NECK: The neck is nontender and supple. RESPIRATORY: Shallow respirations were noted. There is no rales rhonchi or wheezing. There is no conversational dyspnea. CARDIOVASCULAR: Regular rate and rhythm noted there no murmurs rubs or gallops normal S1 normal S2. GASTROINTESTINAL: The abdomen is soft. Abdomen is nontender. MUSCULOSKELETAL/EXTREMITIES: There is no evidence of gross deformity full range of motion is noted in the hips and shoulders. SKIN: Pedal edema was noted bilaterally. Skin was warm and dry. NEUROLOGIC: Patient is awake alert and oriented x3. MEDICAL DECISION MAKING: The patient is a 76-year-old male who presented to the emergency department for an evaluation of difficulty breathing. The patient started noticing dyspnea on exertion. He called his food products sales representative and was sent to the emergency department for further evaluation. The patient does have a history of underlying chronic lung issues and his presentation today was thought to be an acute exacerbation of his chronic issues. The patient's EKG showed no significant changes compared to previous but his troponin was very elevated. This likely represents a non-ST segment elevation CO. The patient was started on heparin in the emergency department. He was reevaluated multiple times. The patient at this time has no specific chest pain. I discussed his [facility] They have agreed to evaluate the patient in the emergency department for further management and disposition. Triage Nursing notes reviewed. Prior medical records reviewed Vital Signs: reviewed and remarkable for elevated blood pressure. Differential diagnosis: Reactive airway disease, pneumonia, pneumothorax, COPD, CHF, infections, cardiac ischemia, pulmonary embolism, musculoskeletal, gastrointestinal, as well as other pathologies. ER treatment provided: See below Diagnostics interpreted by me: ECG: EKG was obtained in the emergency department. My interpretation is normal sinus rhythm at 60 bpm. There is no ectopy. There is no acute ST segment abnormalities noted. This was compared to a tracing from May 052021. No changes were noted. Cardiac Monitoring: An order was placed for continuous cardiac monitoring. The monitor shows a rate of 62 bpm with sinus rhythm. Laboratory studies: As stated above and show below. Imaging studies: See below Consultation(s): I discussed this case with Shama who is on-call for the [facility] hospitalist group. ED COURSE: Procedures: none PDMP:reviewed and no issues Critical Care: I have personally spent greater than 50 minutes of critical care time in the direct management of this patient. This includes bedside care, interpretation of diagnostic studies, and testing, discussion with consultants, patient, and family members, and other required patient management activities. This 50 minutes is in excess of all separately billable procedures. Past Med/Surg History Medical History Abnormal CT scan, chest Abnormal CT scan, chest Acute hyperglycemia Acute left-sided muscle weakness Anemia CAD (coronary artery disease) Chest pain Chronic pulmonary aspiration Dehydration Diabetes Dyspnea on exertion Fall Fall Fluid overload HLD (hyperlipidemia) Hypoxia Interstitial lung disease Interstitial lung disease Interstitial lung disease Interstitial lung disease due to connective tissue disease Lung nodule Neurogenic claudication Nocturnal hypoxemia Nocturnal hypoxia Palliative care encounter Polymyositis Polymyositis Polymyositis Prostate cancer s/p XRT Rheumatoid arthritis Rheumatoid arthritis Shortness of breath Stroke-like symptom 12/2019, w/ blurry vision and dysarthria. mild R sided wkness. attending outpatient physical therapy w/ good improvement in strength (5+/5 strength of all 4 extremities as of 05/28/20) Subtherapeutic international normalized ratio (INR) Supratherapeutic INR Supratherapeutic INR Thoracic ascending aortic aneurysm s/p repair Weakness Weakness Surgical History H/O hernia repair History of aortic valve replacement mechanical History of cholecystectomy History of fusion of cervical spine History of gastric bypass lap band History of heart artery stent History of lung biopsy 2019 History of partial nephrectomy Family History Mother , age 87 of pulmonary issues Rheumatoid arthritis Father , in his mid 80s of a stroke Stroke Other Coronary heart disease Social History Smoking Status: Never smoker Second Hand Exposure: No; Hx Alcohol Use: No Hx Substance Use: No Preferred Language: Romanian Communication Ability: Effective Hearing Ability: Hard of Hearing Supervisor Inspecting Required: No Beliefs That Will Affect Care: None marital status: / Current Living Situation: Alone Current Living Situation Comment: Personal care comes in 3 times a week and son lives next door current occupational status: retired 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 How many Children do You have: 1 Feels Safe at Home: No Is there a partner from a previous relationship who is making you feel unsafe now?: No Any Concerns about Your Family Situation: Yes Would You Like to Speak to Someone About Your Situation: Yes Safety Concerns: Feels Safe At This Time Assistive Devices: None Assistive Devices Comment: walker with PT Allergies Allergies Allergy/AdvReac Type Severity Reaction Status Date / Time Iodinated Contrast Media Allergy Severe Anaphylaxis Verified 05/24/21 20:04 shellfish derived Allergy Severe Anaphylaxis Verified 05/24/21 20:04 tamsulosin [From Flomax] Allergy Intermediate Itching Verified 05/24/21 20:04 Tetanus Vaccines and Toxoid Allergy Unknown Unknown Verified 05/24/21 20:04 Home Meds Home Medications Medication Instructions Recorded Confirmed albuterol sulfate 90 mcg/actuation 2 puff INHALATION Q4H PRN 01/20/20 05/24/21 aerosol inhaler (Ventolin HFA) cholecalciferol (vitamin D3) 50 2,000 unit PO HS 01/20/20 05/24/21 mcg (2,000 unit) capsule (Vitamin D3) atorvastatin 40 mg tablet 40 mg PO HS 05/28/20 05/24/21 insulin aspart U-100 100 unit/mL 0 unit SUBCUT ACHS 09/04/20 05/24/21 (3 mL) subcutaneous pen (Novolog Flexpen U-100 Insulin aspart) aspirin 81 mg tablet,delayed 81 mg PO QAM 10/09/20 05/24/21 release (Adult Low Dose Aspirin) sennosides 8.6 mg tablet (Senokot) 17.2 mg PO QAM 10/19/20 05/24/21 calcium carbonate 600 mg calcium 600 mg PO HS 02/11/21 05/24/21 (1,500 mg) tablet (Calcium) fexofenadine 180 mg tablet 180 mg PO QAM 02/11/21 05/24/21 (Karlee Allergy) fluticasone fur. 100 mcg-umeclid 1 inh INHALATION QAM 02/11/21 05/24/21 62.5 mcg-vilant 25 mcg inhalat.powder (Trelegy Ellipta) potassium chloride 10 mEq 10 meq PO QAM 02/11/21 05/24/21 tablet,extended release (K-Tab) prednisone 5 mg tablet 5 mg PO QAM 02/11/21 05/24/21 topiramate 100 mg tablet (Topamax) 100 mg PO BID 02/11/21 05/10/21 warfarin 10 mg tablet (Jantoven) 7.5 mg PO HS 02/11/21 05/24/21 allopurinol 100 mg tablet 100 mg QPM 04/10/21 05/24/21 finasteride 5 mg tablet 5 mg PO QAM 04/28/21 05/24/21 polyethylene glycol 3350 17 17 g PO DAILY PRN 04/28/21 05/24/21 gram/dose oral powder (Miralax) carbidopa 25 mg-levodopa 100 mg 1 tab PO TID 05/24/21 05/24/21 tablet furosemide 20 mg tablet (Lasix) 20 mg PO [id number] 05/24/21 05/24/21 Previous Rx's Medication Instructions Recorded gabapentin 300 mg capsule 300 mg PO BID #180 cap 12/28/20 insulin NPH isoph U-100 human 100 See Rx Instructions .ROUTE 01/12/21 unit/mL subcutaneous suspension .COMPLEX #10 ml (Novolin N NPH U-100 Insulin isophane) insulin glargine 100 unit/mL (3 20 unit SUBCUT BID #0 ml 01/12/21 mL) subcutaneous pen (Lantus Solostar U-100 Insulin) nitroglycerin 0.4 mg sublingual 0.4 mg SUBLINGUAL Q5M PRN #25 tab 05/05/21 tablet levetiracetam 500 mg tablet 1,000 mg PO BID #360 tab 05/10/21 (Keppra) Results & Data (ED) Vital Signs Vital Signs - 24 hr 05/24/21 19:11 05/24/21 19:12 05/24/21 21:00 Pulse Rate [Finger] 63 62 Respiratory Rate 22 18 Blood Pressure [Right Arm] 162/83 H 162/83 H Blood Pressure Mean [Right Arm] 109 109 Pulse Oximetry 100 100 99 Oxygen Delivery Method Room Air Room Air Room Air Home Medications Current Medication List: was personally reviewed by me Laboratory Data Attestation: I reviewed the patient's lab results. Result diagrams: 05/25/21 05:47 05/25/21 08:35 Lab Results 05/24/21 05/24/21 05/24/21 Range/Units 19:17 19:17 19:17 WBC 5.51 (4.8-10.8) K/uL RBC 4.18 L (4.7-6.1) M/uL Hgb 10.1 L (14.0-18.0) g/dL Hct 34.0 L (42-52) % MCV 81.3 (80-100) fL MCH 24.2 L (25-34) pg MCHC 29.7 L (32-36) g/dL RDW Std Deviation 49.9 H (36.4-46.3) fL RDW Coeff of Lianne 16.7 H (11.5-14.5) % Plt Count 190 (130-400) K/uL MPV 9.3 (7.4-10.4) fL Immature Gran % (Auto) 1.3 % Neut % (Auto) 75.8 % Lymph % (Auto) 14.0 % Woodward % (Auto) 5.8 % Eos % (Auto) 2.9 % Baso % (Auto) 0.2 % Neut # (Auto) 4.18 (1.4-6.5) K/uL Lymph # (Auto) 0.77 L (1.2-3.4) K/uL Woodward # (Auto) 0.32 (0.11-0.59) K/uL Eos # (Auto) 0.16 (0-0.5) K/uL Baso # (Auto) 0.01 (0-0.2) K/uL Immature Gran # (Auto) 0.07 H (0.00-0.02) K/uL ESR (0-20) mm/hr PT 23.4 H (9.0-12.0) Seconds INR 2.5 H (0.9-1.1) APTT 36.4 H (21.0-31.0) Seconds PTT Ratio 1.4 Sodium 136 (136-145) mmol/L Potassium 3.8 (3.5-5.1) mmol/L Chloride 105 (98-107) mmol/L Carbon Dioxide 25 (21-32) mmol/L Anion Gap 6 (3-11) BUN 35 H (6-23) mg/dl Creatinine 1.23 (0.6-1.4) mg/dl Est Cr Clr Drug Dosing Not Reportable Est GFR ( Amer) 65.7 ml/min Est GFR (Non-Af Amer) 56.7 ml/min BUN/Creatinine Ratio 28.5 H (10-20) Glucose 230 H (70-99(Fasting)) mg/dl Calcium 9.5 (8.5-10.1) mg/dl Magnesium 1.8 (1.7-2.4) mg/dl Total Bilirubin 0.4 (0.2-1.0) mg/dl AST 18 (13-39) U/L ALT 27 (7-52) U/L Alkaline Phosphatase 72 (34-104) U/L Total Creatine Kinase (30-223) U/L Troponin I 39.20 H* (0-0.04) ng/ml C-Reactive Protein (0-0.5) mg/dl Total Protein 6.4 (6.0-8.3) gm/dl Albumin 3.8 (3.4-5.0) gm/dl Globulin 2.6 (2.5-4.0) gm/dl Albumin/Globulin Ratio 1.5 (0.9-2) SARS-CoV-2, RNA, NAAT (NEGATIVE) 05/24/21 05/24/21 05/24/21 Range/Units 19:17 19:17 19:17 WBC (4.8-10.8) K/uL RBC (4.7-6.1) M/uL Hgb (14.0-18.0) g/dL Hct (42-52) % MCV (80-100) fL MCH (25-34) pg MCHC (32-36) g/dL RDW Std Deviation (36.4-46.3) fL RDW Coeff of Lianne (11.5-14.5) % Plt Count (130-400) K/uL MPV (7.4-10.4) fL Immature Gran % (Auto) % Neut % (Auto) % Lymph % (Auto) % Woodward % (Auto) % Eos % (Auto) % Baso % (Auto) % Neut # (Auto) (1.4-6.5) K/uL Lymph # (Auto) (1.2-3.4) K/uL Woodward # (Auto) (0.11-0.59) K/uL Eos # (Auto) (0-0.5) K/uL Baso # (Auto) (0-0.2) K/uL Immature Gran # (Auto) (0.00-0.02) K/uL ESR 35 H (0-20) mm/hr PT (9.0-12.0) Seconds INR (0.9-1.1) APTT (21.0-31.0) Seconds PTT Ratio Sodium (136-145) mmol/L Potassium (3.5-5.1) mmol/L Chloride (98-107) mmol/L Carbon Dioxide (21-32) mmol/L Anion Gap (3-11) BUN (6-23) mg/dl Creatinine (0.6-1.4) mg/dl Est Cr Clr Drug Dosing Est GFR ( Amer) ml/min Est GFR (Non-Af Amer) ml/min BUN/Creatinine Ratio (10-20) Glucose (70-99(Fasting)) mg/dl Calcium (8.5-10.1) mg/dl Magnesium (1.7-2.4) mg/dl Total Bilirubin (0.2-1.0) mg/dl AST (13-39) U/L ALT (7-52) U/L Alkaline Phosphatase (34-104) U/L Total Creatine Kinase 51 (30-223) U/L Troponin I (0-0.04) ng/ml C-Reactive Protein < 0.50 (0-0.5) mg/dl Total Protein (6.0-8.3) gm/dl Albumin (3.4-5.0) gm/dl Globulin (2.5-4.0) gm/dl Albumin/Globulin Ratio (0.9-2) SARS-CoV-2, RNA, NAAT NEGATIVE (NEGATIVE) Administered Medications Carbidopa/Levodopa (Carbidopa/Levodopa 25/100mg Tab) 1 tab PO TID [facility] Stop: 06/24/21 08:59 Last Admin: 05/25/21 16:01 Dose: 1 tab Documented by: [id number] Admin: 05/25/21 10:27 Dose: 1 tab Documented by: [id number] Fexofenadine HCl (F[facility]ofenadine Hcl 180 Mg Tab) [facility] [place]: 06/24/21 08:59 Last Admin: 05/25/21 10:27 Dose: 180 mg Documented by: [id number] Finasteride (Finasteride 5 Mg Tab) 5 mg PO QAM [facility] Stop: 06/24/21 08:59 Last Admin: 05/25/21 10:27 Dose: 5 mg Documented by: [id number] Fluticasone Furoate (Fluticasone Furoate 100mcg 14 Puffs/Inhaler) 1 puffs INH QAM [facility] Stop: 06/24/21 08:59 Last Admin: 05/25/21 10:28 Dose: 1 puffs Documented by: [id number] Furosemide (Furosemide 20 Mg Tab) 20 mg PO MoWeFr@0900 [facility] Stop: 06/24/21 08:59 Last Admin: 05/25/21 10:28 Dose: 20 mg Documented by: [id number] Gabapentin (Gabapentin 300 Mg Cap) 300 mg PO BID [facility] Stop: 06/24/21 08:59 Last Admin: 05/25/21 10:28 Dose: 300 mg Documented by: [id number] Sodium Chloride (Nss) 500 mls @ 50 mls/hr IV .Q10H ONE Stop: 05/25/21 19:14 Last Admin: 05/25/21 10:21 Dose: 50 mls/hr Documented by: [id number] Insulin Aspart (Insulin Aspart Per Unit) 0 units SC ACHS [facility] Stop: 06/24/21 07:29 Last Admin: 05/25/21 12:42 Dose: Not Given Documented by: [id number] Admin: 05/25/21 09:08 Dose: Not Given Documented by: [id number] Insulin Glargine (Insulin Glargine Solostar 100 Units/Ml 3 Ml Pen) 20 units SQ BID [facility] Stop: 06/24/21 08:59 Last Admin: 05/25/21 10:35 Dose: Not Given Documented by: [id number] Levetiracetam (Levetiracetam 500 Mg Tab) 1,000 mg PO BID [facility] Stop: 06/24/21 08:59 Last Admin: 05/25/21 10:28 Dose: 1,000 mg Documented by: [id number] Morphine Sulfate (Morphine Sulfate 2 Mg/Ml Carp) 2 mg IV Q4H PRN PRN Reason: Pain Stop: 06/08/21 10:35 Last Admin: 05/25/21 13:46 Dose: 2 mg Documented by: [id number] Ondansetron HCl (Ondansetron Inj 2 Mg/Ml 2 Ml Vial) 4 mg IV Q6H PRN PRN Reason: Nausea Stop: 06/24/21 00:24 Last Admin: 05/25/21 13:46 Dose: 4 mg Documented by: [id number] Potassium Chloride (Potassium Chloride 10 Meq Tabcr) 10 meq PO QAM [facility] Stop: 06/24/21 08:59 Last Admin: 05/25/21 10:29 Dose: 10 meq Documented by: [id number] Sennosides (Senna 8.6 Mg Tab) 17.2 mg PO QAM [facility] Stop: 06/24/21 08:59 Last Admin: 05/25/21 10:29 Dose: 17.2 mg Documented by: [id number] Umeclidinium/Vilanterol (Umeclidinium/Vilanterol 62.5/25mcg 7 Puffs/Inhaler) 1 puffs INH [facility] Stop: 06/24/21 08:59 Last Admin: 05/25/21 10:29 Dose: 1 puffs Documented by: [id number] Discontinued Medications Acetaminophen (Acetaminophen 325 Mg Tab) 650 mg PO NOW [facility] Stop: 05/24/21 16:57 Last Admin: 05/24/21 17:00 Dose: 650 mg Documented by: [id number] Aspirin (Aspirin 81 Mg Ectab) 81 mg PO [facility] Stop: 06/24/21 08:59 Last Admin: 05/25/21 10:27 Dose: 81 mg Documented by: [id number] Diphenhydramine HCl (Diphenhydramine 50 Mg/Ml Vial) Confirm Administered Dose 50 mg .ROUTE .STK-MED ONE Stop: 05/25/21 14:10 Last Admin: 05/25/21 14:54 Dose: 50 mg Documented by: [id number] Fentanyl Citrate (Fentanyl Citrate 100 Mcg/2 Ml Vial) Confirm Administered Dose 100 mcg .ROUTE .STK-MED ONE Stop: 05/25/21 14:10 Last Admin: 05/25/21 14:54 Dose: 50 mcg Documented by: [id number] Heparin Sodium (Porcine) (Heparin (Porcine) 1000 Unit/Ml 10 Ml (Sales Applications Engineer Use Only)) Confirm Administered Dose 10,000 units .ROUTE .STK-MED ONE Stop: 05/25/21 14:10 Last Admin: 05/25/21 14:55 Dose: Not Given Documented by: [id number] Heparin Sodium/Dextrose (Heparin Iv Adult Wt-Based Standard *No* Bolus Protocol) 1 ea N/A ONE ONE; Protocol Stop: 05/24/21 19:55 Last Admin: 05/24/21 20:47 Dose: Not Given Documented by: [id number] Heparin Sodium/Sodium Chloride (Heparin In Nss Infusion 1000 Unit/500 Ml (2 U/Ml) Bag) Confirm Administered Dose 3,000 units IV .STK-MED ONE Stop: 05/25/21 14:10 Last Admin: 05/25/21 14:55 Dose: 3,000 units Documented by: [id number] Heparin Sodium/Dextrose (Heparin Sodium/Dextrose) 25,000 units in 500 mls @ 33 mls/hr IV .[id number] KIRSTEN; Protocol Stop: 06/23/21 20:14 Last Titration: 05/25/21 10:58 Dose: 0 units/hr, 0 mls/hr Documented by: [id number] Cosigned by: [id number] Titration: 05/24/21 22:20 Dose: 0 units/hr, 0 mls/hr Documented by: [id number] Cosigned by: [id number] Admin: 05/24/21 20:29 Dose: 1,650 units/hr, 33 mls/hr Documented by: [id number] Cosigned by: [id number] Iron Sucrose 300 mg/ Sodium (Chloride) 265 mls @ 176.667 mls/hr IV ONE ONE Stop: 05/25/21 14:29 Last Infusion: 05/25/21 16:01 Dose: 0 mls/hr Documented by: [id number] Admin: 05/25/21 13:37 Dose: 176.7 mls/hr Documented by: [id number] Famotidine 20 mg/ Syringe 5 mls @ 2.5 mls/min IV NOW STA Stop: 05/25/21 14:12 Last Admin: 05/25/21 14:56 Dose: 2.5 mls/min Documented by: [id number] Insulin Glargine (Insulin Glargine Solostar 100 Units/Ml 3 Ml Pen) 20 units SQ ONE ONE Stop: 05/25/21 00:46 Last Admin: 05/25/21 01:33 Dose: 20 units Documented by: [id number] Cosigned by: [id number] Methylprednisolone (Methylprednisolone 125 Mg/2 Ml Vial) Confirm Administered Dose 125 mg .ROUTE .STK-MED ONE Stop: 05/25/21 14:11 Last Admin: 05/25/21 14:56 Dose: 125 mg Documented by: [id number] Midazolam HCl (Midazolam Hcl 1 Mg/Ml 2ml Vial) Confirm Administered Dose 2 mg .ROUTE .STK-MED ONE Stop: 05/25/21 14:10 Last Admin: 05/25/21 14:55 Dose: 1 mg Documented by: [id number] Nicardipine HCl (Nicardipine Hcl Inj 2.5 Mg/Ml 10 Ml Amp) Confirm Administered Dose 25 mg .ROUTE .STK-MED ONE Stop: 05/25/21 14:10 Last Admin: 05/25/21 14:55 Dose: 25 mg Documented by: [id number] Nitroglycerin/Dextrose (Nitroglycerin/D5w 100mcg/Ml 20ml Syr) Confirm Administered Dose 2,000 mcg .ROUTE .STK-MED ONE Stop: 05/25/21 14:10 Last Admin: 05/25/21 14:56 Dose: 2,000 mcg Documented by: [id number] Prednisone (Prednisone 5 Mg Tab) 5 mg PO QAM [facility] Stop: 06/24/21 08:59 Last Admin: 05/25/21 10:29 Dose: 5 mg Documented by: [id number] Prednisone (Prednisone 5 Mg Tab) 5 mg PO NOW STA Stop: 05/25/21 11:04 Last Admin: 05/25/21 11:58 Dose: 5 mg Documented by: [id number] Prednisone (Prednisone 1 Mg Tab) 2 mg PO NOW STA Stop: 05/25/21 11:05 Last Admin: 05/25/21 11:58 Dose: 2 mg Documented by: [id number] Warfarin Sodium (Warfarin Sod 7.5 Mg Tab) 7.5 mg PO ONE ONE Stop: 05/25/21 00:46 Last Admin: 05/25/21 01:32 Dose: 7.5 mg Documented by: [id number] Imaging Data Radiologist's Impression: Chest X-Ray 05/24/21 15:59 XR chest 2V PA/lateral CLINICAL HISTORY: SOB, cough TECHNIQUE: AP and lateral frontal radiograph of the chest was obtained. Comparison: Comparison is made to chest one view 04/28/2021 FINDINGS: No lines and tubes are seen. Cardiomegaly is noted. Faint bibasilar airspace opacities are seen. There is a trace right pleural effusion. IMPRESSION: Faint bibasilar airspace opacities which may represent atelectasis, pneumonia, and/or aspiration. Trace right pleural effusion. ACT 112: Negative or not required by law. Electronically signed by: Russell Sifuentes M.D. 05/24/2021 4:59 PM Discharge Plan Visit Data Chief Complaint: Shortness of Breath/Dyspnea Stated Complaint: sob, has lung dis., cough, nausea, chills ED Provider: Josh De La Rosa Discharge Problem: Non-ST elevation CO (NSTEMI), AZUL (dyspnea on exertion) Patient Disposition: Admitted As Inpatient Discharge Instructions Interventions: ED Discharge Assessment Last Done: 05/25/21 00:13
[2021-05-24] MEDS ORDERED: Heparin IV Adult Wt-Based Standard *NO* Bolus Protocol ONE (19:54)
[2021-05-24 19:55] LABS: Alanine Aminotransferase 27 U/L (7-52); Albumin Globulin Ratio 1.5 (0.9-2); Albumin Level 3.8 gm/dl (3.4-5.0); Alkaline Phosphatase 72 U/L (34-104); Anion Gap 6 (3-11); Aspartate Aminotransferase 18 U/L (13-39); BUN Creatinine Ratio 28.5 (10-20); Bilirubin,Total 0.4 mg/dl (0.2-1.0); Blood Urea Nitrogen 35 mg/dl (6-23); Calcium 9.5 mg/dl (8.5-10.1); Carbon Dioxide 25 mmol/L (21-32); Chloride 105 mmol/L (98-107); Est GFR (African American) 65.7 ml/min; Est GFR (Non-African American) 56.7 ml/min; Globulin 2.6 gm/dl (2.5-4.0); Glucose 230 mg/dl (70-99(Fasting)); Magnesium 1.8 mg/dl (1.7-2.4); Potassium 3.8 mmol/L (3.5-5.1); Sodium 136 mmol/L (136-145); Total Protein 6.4 gm/dl (6.0-8.3)
[2021-05-24 20:07] LABS: INR 2.5 (0.9-1.1); Partial Thromboplastin Ratio 1.4; Partial Thromboplastin Time 36.4 Seconds (21.0-31.0); Prothrombin Time 23.4 Seconds (9.0-12.0)
[2021-05-24] MEDS ORDERED: HEPARIN SODIUM/DEXTROSE 25,000 UNITS/500 ML BAG IV SCH (20:15)
--- NOTE | 2021-05-24 20:43 | History & Physical Report ---
Date of Service May 24, 2021 Assessment & Plan (1) Elevated troponin: Plan: - DDx is myocarditis vs pericarditis in the setting of a very elevated troponin with a normal, unchanged EKG when compared to EKG from . Patient does not report new onset chest pain/tightness or palpitations, however does report URI symptoms over the past 5 days, making a post-viral myocarditis likely. Will d/c Heparin drip, ordered in emergency room. - Will repeat troponin and EKG in AM - CK, ESR, CRP, procal, BNP monospot, EBV, and influenza A&B ordered. COVID negative in ED. - Echo in AM. - Repeat CBC in AM - Patient is not hypoxic, no trauma, no ectopy, no recent new medications, and no recent new vaccines (2) AZUL (dyspnea on exertion): Plan: - see above -Patient has history of interstitial lung dz, pulmonary function at baseline is poor. (3) Interstitial lung disease: Plan: Patient follows with rheumatology as well as with Pulmonary - Continue prednisone 5mg per day. (4) Chronic anemia: Plan: H/H stable today from last admission on 05/05/21 (5) Diabetes: Plan: Continue Lantus 20mg night - Sliding Scale Aspart (6) HLD (hyperlipidemia): Plan: -continue Atorvastatin 40 (7) History of aortic valve replacement: Plan: - No acute needs - ECHO with myocarditis workup - Continue with his Coumadin 7.5 mg daily - INR in the morning - Therapeutic today at 2.5 (8) Diabetic peripheral neuropathy: Plan: Continue Gabapentin (9) Parkinsonism: Plan: Started trial Sinemet in June - He follows with Neurology Dr Sheikh - Continue Sinemet 25/ (10) Seizure: Plan: Patient reports history of seizures- he has seen a headache specialist - Continue Keppra, Continue Topiramate, Continue Gabapentin - Seizure precautions History of Present Illness Chief Complaint: chest congestion Primary Care Provider: Josh Gaspar MD 75 YOM with complicated medical history to include Aortic root graft, Mechanical AVR in 2003 (Coumadin), Migraines, seizure history, neuropathy, ILD (on prednisone and Rituxan), HLD, DMII on insulin, Parkinson disease, lumbar fusion, and BPH who presents today 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 Patient reports over the past 5 days, he developed chest congestion, wheezing, increase in frequency of a nonproductive cough, as well as a SOB with activity over the past 3 days. He also reports chills and a decreased appetite with 1-2 episodes of nausea and generalized, mild abdominal pain. When asked about chest pain, he states he has somewhat chronic chest pain across his right and left anterior chest that can be sharp, stabbing at times but has not been worse over the past several days. 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 The pain is not positional or pleuritic, but is somewhat reproducible with chest wall palpation. He denies palpitations, edema. Patient received his Pfizer COVID-19 vaccine series, as well as his booster which he received in November 2020. Influenza vaccine also received in November 2020. Pt presented to ED with a troponin of 39.20, however EKG was unremarkable, showing normal sinus rhythm and no changes when compared with previous EKG from 05/05/21. CXR revealed bibasilar airspace opacities with possible atelectasis vs pneumonia vs aspiration as well as trace right sided pleural effusion. He was started on a Heparin drip without bolus in ED and hospital medicine was consulted for admission. Allergies Allergy/AdvReac Type Severity Reaction Status Date / Time Iodinated Contrast Media Allergy Severe Anaphylaxis Verified 05/24/21 20:04 shellfish derived Allergy Severe Anaphylaxis Verified 05/24/21 20:04 tamsulosin [From Flomax] Allergy Intermediate Itching Verified 05/24/21 20:04 Tetanus Vaccines and Toxoid Allergy Unknown Unknown Verified 05/24/21 20:04 Home Medications Medication Instructions Recorded Confirmed Type albuterol sulfate 90 mcg/actuation 2 puff INHALATION Q4H PRN 01/20/20 05/24/21 History aerosol inhaler (Ventolin HFA) cholecalciferol (vitamin D3) 50 2,000 unit PO HS 01/20/20 05/24/21 History mcg (2,000 unit) capsule (Vitamin D3) atorvastatin 40 mg tablet 40 mg PO HS 05/28/20 05/24/21 History insulin aspart U-100 100 unit/mL 0 unit SUBCUT ACHS 09/04/20 05/24/21 History (3 mL) subcutaneous pen (Novolog Flexpen U-100 Insulin aspart) aspirin 81 mg tablet,delayed 81 mg PO QAM 10/09/20 05/24/21 History release (Adult Low Dose Aspirin) sennosides 8.6 mg tablet (Senokot) 17.2 mg PO QAM 10/19/20 05/24/21 History gabapentin 300 mg capsule 300 mg PO BID #180 cap 12/28/20 05/24/21 Rx insulin NPH isoph U-100 human 100 See Rx Instructions .ROUTE 01/12/21 05/24/21 Rx unit/mL subcutaneous suspension .COMPLEX #10 ml (Novolin N NPH U-100 Insulin isophane) insulin glargine 100 unit/mL (3 20 unit SUBCUT BID #0 ml 01/12/21 05/24/21 Rx mL) subcutaneous pen (Lantus Solostar U-100 Insulin) calcium carbonate 600 mg calcium 600 mg PO HS 02/11/21 05/24/21 History (1,500 mg) tablet (Calcium) fexofenadine 180 mg tablet 180 mg PO QAM 02/11/21 05/24/21 History (Karlee Allergy) fluticasone fur. 100 mcg-umeclid 1 inh INHALATION QAM 02/11/21 05/24/21 History 62.5 mcg-vilant 25 mcg inhalat.powder (Trelegy Ellipta) potassium chloride 10 mEq 10 meq PO QAM 02/11/21 05/24/21 History tablet,extended release (K-Tab) prednisone 5 mg tablet 5 mg PO QAM 02/11/21 05/24/21 History topiramate 100 mg tablet (Topamax) 100 mg PO BID 02/11/21 05/10/21 History warfarin 10 mg tablet (Jantoven) 7.5 mg PO HS 02/11/21 05/24/21 History allopurinol 100 mg tablet 100 mg QPM 04/10/21 05/24/21 History finasteride 5 mg tablet 5 mg PO QAM 04/28/21 05/24/21 History polyethylene glycol 3350 17 17 g PO DAILY PRN 04/28/21 05/24/21 History gram/dose oral powder (Miralax) nitroglycerin 0.4 mg sublingual 0.4 mg SUBLINGUAL Q5M PRN #25 tab 05/05/21 05/24/21 Rx tablet levetiracetam 500 mg tablet 1,000 mg PO BID #360 tab 05/10/21 05/24/21 Rx (Keppra) carbidopa 25 mg-levodopa 100 mg 1 tab PO TID 05/24/21 05/24/21 History tablet furosemide 20 mg tablet (Lasix) 20 mg PO 3XWK 05/24/21 05/24/21 History Past Med/Surg History Medical History Abnormal CT scan, chest Abnormal CT scan, chest Acute hyperglycemia Acute left-sided muscle weakness Anemia CAD (coronary artery disease) Chest pain Chronic pulmonary aspiration Dehydration Diabetes Dyspnea on exertion Fall Fall Fluid overload HLD (hyperlipidemia) Hypoxia Interstitial lung disease Interstitial lung disease Interstitial lung disease Interstitial lung disease due to connective tissue disease Lung nodule Neurogenic claudication Nocturnal hypoxemia Nocturnal hypoxia Palliative care encounter Polymyositis Polymyositis Polymyositis Prostate cancer s/p XRT Rheumatoid arthritis Rheumatoid arthritis Shortness of breath Stroke-like symptom 12/2019, w/ blurry vision and dysarthria. mild R sided wkness. attending outpatient physical therapy w/ good improvement in strength (5+/5 strength of all 4 extremities as of 05/28/20) Subtherapeutic international normalized ratio (INR) Supratherapeutic INR Supratherapeutic INR Thoracic ascending aortic aneurysm s/p repair Weakness Weakness Surgical History H/O hernia repair History of aortic valve replacement mechanical History of cholecystectomy History of fusion of cervical spine History of gastric bypass lap band History of heart artery stent History of lung biopsy 2019 History of partial nephrectomy Family History Mother , age 87 of pulmonary issues Rheumatoid arthritis Father , in his mid 80s of a stroke Stroke Other Coronary heart disease Social History Smoking Status: Never smoker Second Hand Exposure: No; Hx Alcohol Use: No Hx Substance Use: No Preferred Language: Khmer Communication Ability: Effective Hearing Ability: Hard of Hearing Coppersmith Helper Required: No Beliefs That Will Affect Care: None marital status: / Current Living Situation: Alone Current Living Situation Comment: Personal care comes in 3 times a week and son lives next door current occupational status: retired 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 How many Children do You have: 1 Feels Safe at Home: No Is there a partner from a previous relationship who is making you feel unsafe now?: No Assistive Devices: None Review of Systems Review of Systems: Review of systems: Constitutional: Reports chills; No fever, sweats, myalgias, or weight loss Eyes: No diplopia, no worsening or blurred vision ENT: normal hearing, no trouble swallowing Respiratory: Reports cough without sputum and dyspnea with exertion, but not at rest Cardiovascular: Reports stable chest pain; No tightness or palpitations Abdomen: 1-2 episodes of nausea; no vomiting, diarrhea or constipation Musculoskeletal: Chronic right lower leg sweling; No joint pain, calf pain Neurologic: No weakness, numbness/tingling, or balance problems Psychiatric: No anxiety or depression Skin: No rash or itch Physical Exam Physical Exam: General: awake, alert, no apparent distress Head: Normocephalic, atraumatic ENT: PERRL, EOMI, no pharyngeal exudate, mucous membranes moist Chest: Clear to auscultation, no adventitious breath sounds Cardiac: Regular rate and rhythm, no murmur, no JVD, normal peripheral pulses, good capillary refill Abdominal: NABS x 4 quadrants, soft, nontender to palpation, no rebound, guarding or tenderness Extremities: 2+ edema of RLE consistent with patient's baseline, calfs nontender to palpation Psych: Normal mood and affect Neuro: AAO x 3, strength intact bilaterally and rated 5/5, no motor deficits, speech is clear, no peripheral sensory deficits Skin: no rash or erythema Results & Data Results & Data ([facility]) Vital Signs (Past 12 Hours) Vital Signs Temp Pulse Pulse Resp BP BP Pulse Ox 05/24/21 19:12 100 05/24/21 19:11 63 22 162/83 H 100 05/24/21 15:54 36.4 C L 84 20 147/83 H 99 Laboratory Results Abnormal lab results 05/24/21 05/24/21 05/24/21 Range/Units 19:17 19:17 19:17 RBC 4.18 L (4.7-6.1) M/uL Hgb 10.1 L (14.0-18.0) g/dL Hct 34.0 L (42-52) % MCH 24.2 L (25-34) pg MCHC 29.7 L (32-36) g/dL RDW Std Deviation 49.9 H (36.4-46.3) fL RDW Coeff of Lianne 16.7 H (11.5-14.5) % Lymph # (Auto) 0.77 L (1.2-3.4) K/uL Immature Gran # (Auto) 0.07 H (0.00-0.02) K/uL ESR (0-20) mm/hr PT 23.4 H (9.0-12.0) Seconds INR 2.5 H (0.9-1.1) APTT 36.4 H (21.0-31.0) Seconds BUN 35 H (6-23) mg/dl BUN/Creatinine Ratio 28.5 H (10-20) Glucose 230 H (70-99(Fasting)) mg/dl Troponin I 39.20 H* (0-0.04) ng/ml 05/24/21 Range/Units 19:17 RBC (4.7-6.1) M/uL Hgb (14.0-18.0) g/dL Hct (42-52) % MCH (25-34) pg MCHC (32-36) g/dL RDW Std Deviation (36.4-46.3) fL RDW Coeff of Lianne (11.5-14.5) % Lymph # (Auto) (1.2-3.4) K/uL Immature Gran # (Auto) (0.00-0.02) K/uL ESR 35 H (0-20) mm/hr PT (9.0-12.0) Seconds INR (0.9-1.1) APTT (21.0-31.0) Seconds BUN (6-23) mg/dl BUN/Creatinine Ratio (10-20) Glucose (70-99(Fasting)) mg/dl Troponin I (0-0.04) ng/ml Diagnostic Findings Chest X-Ray 05/24/21 15:59 XR chest 2V PA/lateral CLINICAL HISTORY: SOB, cough TECHNIQUE: AP and lateral frontal radiograph of the chest was obtained. Comparison: Comparison is made to chest one view 04/28/2021 FINDINGS: No lines and tubes are seen. Cardiomegaly is noted. Faint bibasilar airspace opacities are seen. There is a trace right pleural effusion. IMPRESSION: Faint bibasilar airspace opacities which may represent atelectasis, pneumonia, and/or aspiration. Trace right pleural effusion. Medications Administered Heparin Sodium/Dextrose (Heparin Sodium/Dextrose) 25,000 units in 500 mls @ 33 mls/hr IV .[id number] [facility]; Protocol Stop: 06/23/21 20:14 Last Admin: 05/24/21 20:29 Dose: 1,650 units/hr, 33 mls/hr Documented by: [id number] Cosigned by: [id number] ECG Additional Comments: Normal sinus rhythm Normal ECG When compared with ECG of 05-MAY-2021 00:08, No significant change was found Code Status & VTE Plan Code Status Full Code Supervising Physician Co-Signing Physician Notes During face to face encounter with patient, I obtained a history and physical examination. I discussed plan of care with DANITZA Caruso and patient. Patient will be admitted with elevated trop. Appears likely myocarditis. will consult cardio. will hold heparin given lack of EKG changes, and lack of clinical symptoms which will correlate with an extensive NSTEMI evidenced by his severely elevated trop. 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 Diabetes mellitus type: type 2 HLD (hyperlipidemia) E78.2 Hyperlipidemia type: mixed hyperlipidemia History of aortic valve replacement Z95.2 Diabetic peripheral neuropathy E11.42 Parkinsonism G20 Parkinsonism type: unspecified Seizure R56.9 (1) Diabetes Diabetes mellitus complication detail: with polyneuropathy Diabetes mellitus complication status: with neurologic complications 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
[2021-05-24 21:12] LABS: C Reactive Protein < 0.50 mg/dl (0-0.5); Creatine Kinase 51 U/L (30-223)
[2021-05-24] MEDS ORDERED: GLUCOSE 40% GEL 15 GM TUBE PO PRN (21:30)
[2021-05-24] MEDS ORDERED: GLUCAGON FOR INJ 1 MG VIAL SQ PRN (21:30)
[2021-05-24] MEDS ORDERED: GLUCOSE 10 TABS/TUBE PO PRN (21:30)
[2021-05-24] MEDS ORDERED: DEXTROSE 50% 50 ML SYRINGE IV PRN (21:30)
[2021-05-24] MEDS ORDERED: CARBOHYDRATES FOR HYPOGLYCEMIA PO PRN (21:30)
[2021-05-25] MEDS ORDERED: ACETAMINOPHEN 325 MG TAB PO PRN (00:25)
[2021-05-25] MEDS ORDERED: NITROGLYCERIN SL 0.4 MG/TAB TAB SL PRN (00:25)
[2021-05-25] MEDS ORDERED: ALBUTEROL HFA 8 GM INHALER INH PRN (00:25)
[2021-05-25] MEDS ORDERED: INSULIN GLARGINE SOLOSTAR 100 UNITS/ML 3 ML PEN SQ ONE (00:45)
[2021-05-25] MEDS ORDERED: WARFARIN SOD 7.5 MG TAB PO ONE (00:45)
[2021-05-25 02:52] LABS: Influenza A virus by PCR Negative (Negative); Influenza B virus by PCR Negative (Negative)
[2021-05-25 05:58] LABS: Basophils # (auto) 0.01 K/uL (0-0.2); Basophils % (auto) 0.3 %; Eosinophils # (auto) 0.25 K/uL (0-0.5); Eosinophils % (auto) 7.6 %; Hematocrit (blood only) 30.8 % (42-52); Hemoglobin 9.2 g/dL (14.0-18.0); Immature Granulocytes # (auto) 0.04 K/uL (0.00-0.02); Immature Granulocytes % (auto) 1.2 %; Lymphocytes # (auto) 0.88 K/uL (1.2-3.4); Lymphocytes % (auto) 26.9 %; Mean Corpuscular Hemoglobin 24.4 pg (25-34); Mean Corpuscular Hgb Conc 29.9 g/dL (32-36); Mean Corpuscular Volume 81.7 fL (80-100); Monocytes % (auto) 6.1 %; Neutrophils # (auto) 1.89 K/uL (1.4-6.5); Neutrophils % (auto) 57.9 %; Platelet Count 171 K/uL (130-400); RDW Coefficient of Variation 16.7 % (11.5-14.5); RDW Standard Deviation 50.6 fL (36.4-46.3); Red Blood Count 3.77 M/uL (4.7-6.1); White Blood Count 3.27 K/uL (4.8-10.8)
--- NOTE | 2021-05-25 08:07 | Hospitalist Progress Note ---
Date of Service May 25, 2021 Assessment & Plan (1) Non-ST elevation MS (NSTEMI): Plan: Patient admitted with initial complaints of chest pain/shortness of breath -- chronic issues with shortness of breath/chronic steroid use with RA/polymyositis ESR elevated, CRP wnl. Procal 0.48 BNP wnl Concerns for markedly elevated troponin in patient with known CAD/stent to main LAD 2018 (after cath with complaints of syncope after getting radiation for his prostate ca) Trop elevated to 39.2 on admission, thought viral related give UTI symptoms 5 days prior. Heparin gtt d/c at that time Trop elevated to 41 this morning, repeat EKG ordered (no St elevation noted) Discussed consultation, changed to Dr Chau as that is who Mr Bradford's follows with, regarding concerns for MS given elevated trop/complaints of L chest pain with radiation to neck/jaw and precordium but also tender to palpation Trend troponin, repeat EKG pending Instructed to hold coumadin, INR therapeutic (hx mech AVR 2003/aneurysm repair) ECHO --> LV preserved with normal gradient across mechanical valve with mild paravalvular and valvular regurgitation. RV function relatively preserved NPO for cath planned this afternoon Given AM meds as not received last night Placed on gentle IVF Pain control -- added morphine IV prn. Zofran available prn as he state he can tolerate but has issues with nausea A1c/lipid panel in AM Of note, also with anemia -- checked iron studies c/w PAULA. Venofer x 1, monitor labs in am, additional dosing as needed. suspect some degree of demand ischemia as well from such (2) Elevated troponin: Plan: trend cath this afternoon planned (3) CAD (coronary atherosclerotic disease): Plan: follows with Dr Chau. 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 A cardiac catheterization in April 2019 noted a patent left main stent and mild diffuse disease within the LAD, LCx, and RCA ECHO 02/14/21 noted normal systolic function with ejection fraction 55-60% Troponin further elevated this morning --> messaged Dr Chau Further trending of troponin Repeat EKG x 1 now Cath this afternoon A1c/lipid panel in AM (4) AZUL (dyspnea on exertion): Plan: - see above -Patient has history of interstitial lung dz, pulmonary function at baseline is poor. Also with PAULA -- venofer as above Concerns for NSTEMi -- cath planned Of note, was on prednisone taper starting at 20mg at d/c last admission, down to 10 but unable to tolerate and currently has been on 12mg daily -- order changed in system (5) Interstitial lung disease: Plan: Patient follows with rheumatology as well as with Pulmonary - Continue prednisone 5mg per day ---> has been taking 12mg daily. changed as above. suspect would be able to decrease once iron stores repleted/cath for further investigation of able (6) Chronic anemia: Plan: H/H stable today from last admission on 05/05/21 Given complaints of CP/SOB , obtained iron studies --> iron 26, normal TIBC. ferritin 27.4. Trans % sat 9 LOW Venofer x 1 today, repeat in AM Monitor CBC Will need to ask about previous endoscopies. no bleeding/blood in stool/urine reported (7) Diabetes: Plan: A1c 7.05 April 2021 Continue Lantus 20mg night - Sliding Scale Aspart Hold AM lantus as npo Mnitor BSG (8) HLD (hyperlipidemia): Plan: -continue Atorvastatin 40 Lipid panel in am, increase if needed (9) History of aortic valve replacement: Plan: - No acute needs - ECHO with myocarditis workup - Continue with his Coumadin 7.5 mg daily -- holding today per cards INR therapeutic - INR in the morning (10) Diabetic peripheral neuropathy: Plan: Continue Gabapentin (11) Parkinsonism: Plan: Started trial Sinemet in June - He follows with Neurology Dr Sheikh - Continue Sinemet 25/ (12) Seizure: Plan: Patient reports history of seizures- he has seen a headache specialist - Continue Keppra, Continue Topiramate, Continue Gabapentin --> MISSED MEDICATIONS LAST EVENING - Seizure precautions -- no activity noted f/u outpatient for further eval epilepsy vs PNES (13) PAF (paroxysmal atrial fibrillation): Plan: on coumadin, also with mechanical AVR Plan: Cards on consult NPO for possible NSTEMI as above Gentle IVF while NPO Trend troponin/EKG Morphine for pain control/O2 as needed Admission and Anticipated Discharge Date Admission Date: May 24, 2021 Supervising Physician Co-Signing Physician Notes PA Supervision Note: I did not personally see or examine the patient today, but I verified all peña points of PETRA Gates's assessment and plan with the following exceptions/additions: None Subjective patient eval this morning still with chest pain, better than admission but still present right sided with radiation to axillae and neck/jaw got diet this morning but NPO for cath this afternoon discussed pain -- if needed morphine to be ordered. he has issues with nausea with morphine and Zofran available as well hx ILD and had been on 20mg prednisone, decreased/titrated to 10mg but had worsening cough/sob and increased per PCP back to 12mg currently. has 1mg tablets at home. did not get any of his home medications last night or this morning yet. Review of Systems Review of Systems: All systems reviewed & are unremarkable except as noted in HPI & below Physical Exam Physical Exam: General: awake, alert, WN/WD but chronically ill appearing male, laying in hospital bed, no acute distress HEENT: normocephalic, eyes anicteric, pupils equal and reactive, mm slightly dry Resp: coarse breath sounds bilaterally, scattered crackles, no wheezing, on room air SpO2 98% CV: irregularly irregular, +systolic murmur with click, trace edema LLE, calves non-tender GI: +BS throughout, non-tender, no guarding ; no fay MSK/Neuro: moves all extremities, no focal deficit, CN intact bilaterally, +foot drop Psych: AOx3, pleasant and cooperative Skin: scattered ecchymosis/skin thinning from chronic steroid use Results & Data Results & Data ([facility]) Vital Signs (Past 12 Hours) Vital Signs Pulse Resp BP Pulse Ox 05/25/21 03:21 63 16 121/66 97 05/25/21 01:44 58 L 28 H 137/78 99 05/24/21 21:00 62 18 162/83 H 99 Laboratory Results 05/25/21 05/25/21 05/25/21 Range/Units 12:36 11:46 08:47 WBC (4.8-10.8) K/uL RBC (4.7-6.1) M/uL Hgb (14.0-18.0) g/dL Hct (42-52) % MCV (80-100) fL MCH (25-34) pg MCHC (32-36) g/dL RDW Std Deviation (36.4-46.3) fL RDW Coeff of Lianne (11.5-14.5) % Plt Count (130-400) K/uL MPV (7.4-10.4) fL Immature Gran % (Auto) % Neut % (Auto) % Lymph % (Auto) % Wells % (Auto) % Eos % (Auto) % Baso % (Auto) % Neut # (Auto) (1.4-6.5) K/uL Lymph # (Auto) (1.2-3.4) K/uL Wells # (Auto) (0.11-0.59) K/uL Eos # (Auto) (0-0.5) K/uL Baso # (Auto) (0-0.2) K/uL Immature Gran # (Auto) (0.00-0.02) K/uL ESR (0-20) mm/hr PT (9.0-12.0) Seconds INR (0.9-1.1) APTT (21.0-31.0) Seconds PTT Ratio Sodium (136-145) mmol/L Potassium (3.5-5.1) mmol/L Chloride (98-107) mmol/L Carbon Dioxide (21-32) mmol/L Anion Gap (3-11) BUN (6-23) mg/dl Creatinine (0.6-1.4) mg/dl Est Cr Clr Drug Dosing Est GFR ( Amer) ml/min Est GFR (Non-Af Amer) ml/min BUN/Creatinine Ratio (10-20) Glucose (70-99(Fasting)) mg/dl POC Glucose 130 H 78 (70-99) mg/dl Calcium (8.5-10.1) mg/dl Magnesium (1.7-2.4) mg/dl Iron (35-175) mcg/dl TIBC (250-450) mcg/dl Unsaturated IBC (155-355) mcg/dl Transferrin Transferrin % Sat (20-50) % Ferritin (8-388) ng/ml Total Bilirubin (0.2-1.0) mg/dl AST (13-39) U/L ALT (7-52) U/L Alkaline Phosphatase (34-104) U/L Total Creatine Kinase (30-223) U/L Troponin I 41.87 H* (0-0.04) ng/ml C-Reactive Protein (0-0.5) mg/dl B-Natriuretic Peptide (0-100) pg/ml Total Protein (6.0-8.3) gm/dl Albumin (3.4-5.0) gm/dl Globulin (2.5-4.0) gm/dl Albumin/Globulin Ratio (0.9-2) Vitamin B12 (211-911) pg/ml Procalcitonin (0-0.5) ng/ml EBV Capsid Ag IgG Ab EBV Capsid Ag IgM Ab EBV Nuclear Antigen Ab EBV Antibody Interp Monoscreen (Negative) Influ A Molecular Assay (Negative) Influ B Molecular Assay (Negative) SARS-CoV-2, RNA, NAAT (NEGATIVE) 05/25/21 05/25/21 05/25/21 Range/Units 08:35 08:35 05:47 WBC (4.8-10.8) K/uL RBC (4.7-6.1) M/uL Hgb (14.0-18.0) g/dL Hct (42-52) % MCV (80-100) fL MCH (25-34) pg MCHC (32-36) g/dL RDW Std Deviation (36.4-46.3) fL RDW Coeff of Lianne (11.5-14.5) % Plt Count (130-400) K/uL MPV (7.4-10.4) fL Immature Gran % (Auto) % Neut % (Auto) % Lymph % (Auto) % Wells % (Auto) % Eos % (Auto) % Baso % (Auto) % Neut # (Auto) (1.4-6.5) K/uL Lymph # (Auto) (1.2-3.4) K/uL Wells # (Auto) (0.11-0.59) K/uL Eos # (Auto) (0-0.5) K/uL Baso # (Auto) (0-0.2) K/uL Immature Gran # (Auto) (0.00-0.02) K/uL ESR (0-20) mm/hr PT (9.0-12.0) Seconds INR (0.9-1.1) APTT (21.0-31.0) Seconds PTT Ratio Sodium 143 (136-145) mmol/L Potassium 3.2 L (3.5-5.1) mmol/L Chloride 112 H (98-107) mmol/L Carbon Dioxide 25 (21-32) mmol/L Anion Gap 6 (3-11) BUN 31 H (6-23) mg/dl Creatinine 1.16 (0.6-1.4) mg/dl Est Cr Clr Drug Dosing 67.7 Est GFR ( Amer) 70.5 ml/min Est GFR (Non-Af Amer) 60.8 ml/min BUN/Creatinine Ratio 26.7 H (10-20) Glucose 80 (70-99(Fasting)) mg/dl POC Glucose (70-99) mg/dl Calcium 8.7 (8.5-10.1) mg/dl Magnesium 1.7 (1.7-2.4) mg/dl Iron 26 L (35-175) mcg/dl TIBC 303 (250-450) mcg/dl Unsaturated IBC 277 (155-355) mcg/dl Transferrin Pending Transferrin % Sat 9 L (20-50) % Ferritin 27.4 (8-388) ng/ml Total Bilirubin (0.2-1.0) mg/dl AST (13-39) U/L ALT (7-52) U/L Alkaline Phosphatase (34-104) U/L Total Creatine Kinase (30-223) U/L Troponin I 41.69 H* (0-0.04) ng/ml C-Reactive Protein (0-0.5) mg/dl B-Natriuretic Peptide (0-100) pg/ml Total Protein (6.0-8.3) gm/dl Albumin (3.4-5.0) gm/dl Globulin (2.5-4.0) gm/dl Albumin/Globulin Ratio (0.9-2) Vitamin B12 289 (211-911) pg/ml Procalcitonin (0-0.5) ng/ml EBV Capsid Ag IgG Ab EBV Capsid Ag IgM Ab EBV Nuclear Antigen Ab EBV Antibody Interp Monoscreen (Negative) Influ A Molecular Assay (Negative) Influ B Molecular Assay (Negative) SARS-CoV-2, RNA, NAAT (NEGATIVE) 05/25/21 05/25/21 05/25/21 Range/Units 05:47 01:23 01:23 WBC 3.27 L (4.8-10.8) K/uL RBC 3.77 L (4.7-6.1) M/uL Hgb 9.2 L (14.0-18.0) g/dL Hct 30.8 L (42-52) % MCV 81.7 (80-100) fL MCH 24.4 L (25-34) pg MCHC 29.9 L (32-36) g/dL RDW Std Deviation 50.6 H (36.4-46.3) fL RDW Coeff of Lianne 16.7 H (11.5-14.5) % Plt Count 171 (130-400) K/uL MPV 9.0 (7.4-10.4) fL Immature Gran % (Auto) 1.2 % Neut % (Auto) 57.9 % Lymph % (Auto) 26.9 % Wells % (Auto) 6.1 % Eos % (Auto) 7.6 % Baso % (Auto) 0.3 % Neut # (Auto) 1.89 (1.4-6.5) K/uL Lymph # (Auto) 0.88 L (1.2-3.4) K/uL Wells # (Auto) 0.20 (0.11-0.59) K/uL Eos # (Auto) 0.25 (0-0.5) K/uL Baso # (Auto) 0.01 (0-0.2) K/uL Immature Gran # (Auto) 0.04 H (0.00-0.02) K/uL ESR (0-20) mm/hr PT (9.0-12.0) Seconds INR (0.9-1.1) APTT (21.0-31.0) Seconds PTT Ratio Sodium (136-145) mmol/L Potassium (3.5-5.1) mmol/L Chloride (98-107) mmol/L Carbon Dioxide (21-32) mmol/L Anion Gap (3-11) BUN (6-23) mg/dl Creatinine (0.6-1.4) mg/dl Est Cr Clr Drug Dosing Est GFR ( Amer) ml/min Est GFR (Non-Af Amer) ml/min BUN/Creatinine Ratio (10-20) Glucose (70-99(Fasting)) mg/dl POC Glucose 110 H (70-99) mg/dl Calcium (8.5-10.1) mg/dl Magnesium (1.7-2.4) mg/dl Iron (35-175) mcg/dl TIBC (250-450) mcg/dl Unsaturated IBC (155-355) mcg/dl Transferrin Transferrin % Sat (20-50) % Ferritin (8-388) ng/ml Total Bilirubin (0.2-1.0) mg/dl AST (13-39) U/L ALT (7-52) U/L Alkaline Phosphatase (34-104) U/L Total Creatine Kinase (30-223) U/L Troponin I (0-0.04) ng/ml C-Reactive Protein (0-0.5) mg/dl B-Natriuretic Peptide (0-100) pg/ml Total Protein (6.0-8.3) gm/dl Albumin (3.4-5.0) gm/dl Globulin (2.5-4.0) gm/dl Albumin/Globulin Ratio (0.9-2) Vitamin B12 (211-911) pg/ml Procalcitonin (0-0.5) ng/ml EBV Capsid Ag IgG Ab EBV Capsid Ag IgM Ab EBV Nuclear Antigen Ab EBV Antibody Interp Monoscreen (Negative) Influ A Molecular Assay Negative (Negative) Influ B Molecular Assay Negative (Negative) SARS-CoV-2, RNA, NAAT (NEGATIVE) 05/24/21 05/24/21 05/24/21 Range/Units 21:41 21:41 21:41 WBC (4.8-10.8) K/uL RBC (4.7-6.1) M/uL Hgb (14.0-18.0) g/dL Hct (42-52) % MCV (80-100) fL MCH (25-34) pg MCHC (32-36) g/dL RDW Std Deviation (36.4-46.3) fL RDW Coeff of Lianne (11.5-14.5) % Plt Count (130-400) K/uL MPV (7.4-10.4) fL Immature Gran % (Auto) % Neut % (Auto) % Lymph % (Auto) % Wells % (Auto) % Eos % (Auto) % Baso % (Auto) % Neut # (Auto) (1.4-6.5) K/uL Lymph # (Auto) (1.2-3.4) K/uL Wells # (Auto) (0.11-0.59) K/uL Eos # (Auto) (0-0.5) K/uL Baso # (Auto) (0-0.2) K/uL Immature Gran # (Auto) (0.00-0.02) K/uL ESR (0-20) mm/hr PT (9.0-12.0) Seconds INR (0.9-1.1) APTT (21.0-31.0) Seconds PTT Ratio Sodium (136-145) mmol/L Potassium (3.5-5.1) mmol/L Chloride (98-107) mmol/L Carbon Dioxide (21-32) mmol/L Anion Gap (3-11) BUN (6-23) mg/dl Creatinine (0.6-1.4) mg/dl Est Cr Clr Drug Dosing Est GFR ( Amer) ml/min Est GFR (Non-Af Amer) ml/min BUN/Creatinine Ratio (10-20) Glucose (70-99(Fasting)) mg/dl POC Glucose (70-99) mg/dl Calcium (8.5-10.1) mg/dl Magnesium (1.7-2.4) mg/dl Iron (35-175) mcg/dl TIBC (250-450) mcg/dl Unsaturated IBC (155-355) mcg/dl Transferrin Transferrin % Sat (20-50) % Ferritin (8-388) ng/ml Total Bilirubin (0.2-1.0) mg/dl AST (13-39) U/L ALT (7-52) U/L Alkaline Phosphatase (34-104) U/L Total Creatine Kinase (30-223) U/L Troponin I (0-0.04) ng/ml C-Reactive Protein (0-0.5) mg/dl B-Natriuretic Peptide 60 (0-100) pg/ml Total Protein (6.0-8.3) gm/dl Albumin (3.4-5.0) gm/dl Globulin (2.5-4.0) gm/dl Albumin/Globulin Ratio (0.9-2) Vitamin B12 (211-911) pg/ml Procalcitonin 0.47 (0-0.5) ng/ml EBV Capsid Ag IgG Ab Pending EBV Capsid Ag IgM Ab Pending EBV Nuclear Antigen Ab Pending EBV Antibody Interp Pending Monoscreen (Negative) Influ A Molecular Assay (Negative) Influ B Molecular Assay (Negative) SARS-CoV-2, RNA, NAAT (NEGATIVE) 05/24/21 05/24/21 05/24/21 Range/Units 21:41 19:17 19:17 WBC (4.8-10.8) K/uL RBC (4.7-6.1) M/uL Hgb (14.0-18.0) g/dL Hct (42-52) % MCV (80-100) fL MCH (25-34) pg MCHC (32-36) g/dL RDW Std Deviation (36.4-46.3) fL RDW Coeff of Lianne (11.5-14.5) % Plt Count (130-400) K/uL MPV (7.4-10.4) fL Immature Gran % (Auto) % Neut % (Auto) % Lymph % (Auto) % Wells % (Auto) % Eos % (Auto) % Baso % (Auto) % Neut # (Auto) (1.4-6.5) K/uL Lymph # (Auto) (1.2-3.4) K/uL Wells # (Auto) (0.11-0.59) K/uL Eos # (Auto) (0-0.5) K/uL Baso # (Auto) (0-0.2) K/uL Immature Gran # (Auto) (0.00-0.02) K/uL ESR 35 H (0-20) mm/hr PT (9.0-12.0) Seconds INR (0.9-1.1) APTT (21.0-31.0) Seconds PTT Ratio Sodium (136-145) mmol/L Potassium (3.5-5.1) mmol/L Chloride (98-107) mmol/L Carbon Dioxide (21-32) mmol/L Anion Gap (3-11) BUN (6-23) mg/dl Creatinine (0.6-1.4) mg/dl Est Cr Clr Drug Dosing Est GFR ( Amer) ml/min Est GFR (Non-Af Amer) ml/min BUN/Creatinine Ratio (10-20) Glucose (70-99(Fasting)) mg/dl POC Glucose (70-99) mg/dl Calcium (8.5-10.1) mg/dl Magnesium (1.7-2.4) mg/dl Iron (35-175) mcg/dl TIBC (250-450) mcg/dl Unsaturated IBC (155-355) mcg/dl Transferrin Transferrin % Sat (20-50) % Ferritin (8-388) ng/ml Total Bilirubin (0.2-1.0) mg/dl AST (13-39) U/L ALT (7-52) U/L Alkaline Phosphatase (34-104) U/L Total Creatine Kinase 51 (30-223) U/L Troponin I (0-0.04) ng/ml C-Reactive Protein < 0.50 (0-0.5) mg/dl B-Natriuretic Peptide (0-100) pg/ml Total Protein (6.0-8.3) gm/dl Albumin (3.4-5.0) gm/dl Globulin (2.5-4.0) gm/dl Albumin/Globulin Ratio (0.9-2) Vitamin B12 (211-911) pg/ml Procalcitonin (0-0.5) ng/ml EBV Capsid Ag IgG Ab EBV Capsid Ag IgM Ab EBV Nuclear Antigen Ab EBV Antibody Interp Monoscreen Negative (Negative) Influ A Molecular Assay (Negative) Influ B Molecular Assay (Negative) SARS-CoV-2, RNA, NAAT (NEGATIVE) 05/24/21 05/24/21 05/24/21 Range/Units 19:17 19:17 19:17 WBC (4.8-10.8) K/uL RBC (4.7-6.1) M/uL Hgb (14.0-18.0) g/dL Hct (42-52) % MCV (80-100) fL MCH (25-34) pg MCHC (32-36) g/dL RDW Std Deviation (36.4-46.3) fL RDW Coeff of Lianne (11.5-14.5) % Plt Count (130-400) K/uL MPV (7.4-10.4) fL Immature Gran % (Auto) % Neut % (Auto) % Lymph % (Auto) % Wells % (Auto) % Eos % (Auto) % Baso % (Auto) % Neut # (Auto) (1.4-6.5) K/uL Lymph # (Auto) (1.2-3.4) K/uL Wells # (Auto) (0.11-0.59) K/uL Eos # (Auto) (0-0.5) K/uL Baso # (Auto) (0-0.2) K/uL Immature Gran # (Auto) (0.00-0.02) K/uL ESR (0-20) mm/hr PT 23.4 H (9.0-12.0) Seconds INR 2.5 H (0.9-1.1) APTT 36.4 H (21.0-31.0) Seconds PTT Ratio 1.4 Sodium 136 (136-145) mmol/L Potassium 3.8 (3.5-5.1) mmol/L Chloride 105 (98-107) mmol/L Carbon Dioxide 25 (21-32) mmol/L Anion Gap 6 (3-11) BUN 35 H (6-23) mg/dl Creatinine 1.23 (0.6-1.4) mg/dl Est Cr Clr Drug Dosing Not Reportable Est GFR ( Amer) 65.7 ml/min Est GFR (Non-Af Amer) 56.7 ml/min BUN/Creatinine Ratio 28.5 H (10-20) Glucose 230 H (70-99(Fasting)) mg/dl POC Glucose (70-99) mg/dl Calcium 9.5 (8.5-10.1) mg/dl Magnesium 1.8 (1.7-2.4) mg/dl Iron (35-175) mcg/dl TIBC (250-450) mcg/dl Unsaturated IBC (155-355) mcg/dl Transferrin Transferrin % Sat (20-50) % Ferritin (8-388) ng/ml Total Bilirubin 0.4 (0.2-1.0) mg/dl AST 18 (13-39) U/L ALT 27 (7-52) U/L Alkaline Phosphatase 72 (34-104) U/L Total Creatine Kinase (30-223) U/L Troponin I 39.20 H* (0-0.04) ng/ml C-Reactive Protein (0-0.5) mg/dl B-Natriuretic Peptide (0-100) pg/ml Total Protein 6.4 (6.0-8.3) gm/dl Albumin 3.8 (3.4-5.0) gm/dl Globulin 2.6 (2.5-4.0) gm/dl Albumin/Globulin Ratio 1.5 (0.9-2) Vitamin B12 (211-911) pg/ml Procalcitonin (0-0.5) ng/ml EBV Capsid Ag IgG Ab EBV Capsid Ag IgM Ab EBV Nuclear Antigen Ab EBV Antibody Interp Monoscreen (Negative) Influ A Molecular Assay (Negative) Influ B Molecular Assay (Negative) SARS-CoV-2, RNA, NAAT NEGATIVE (NEGATIVE) 05/24/21 Range/Units 19:17 WBC 5.51 (4.8-10.8) K/uL RBC 4.18 L (4.7-6.1) M/uL Hgb 10.1 L (14.0-18.0) g/dL Hct 34.0 L (42-52) % MCV 81.3 (80-100) fL MCH 24.2 L (25-34) pg MCHC 29.7 L (32-36) g/dL RDW Std Deviation 49.9 H (36.4-46.3) fL RDW Coeff of Lianne 16.7 H (11.5-14.5) % Plt Count 190 (130-400) K/uL MPV 9.3 (7.4-10.4) fL Immature Gran % (Auto) 1.3 % Neut % (Auto) 75.8 % Lymph % (Auto) 14.0 % Wells % (Auto) 5.8 % Eos % (Auto) 2.9 % Baso % (Auto) 0.2 % Neut # (Auto) 4.18 (1.4-6.5) K/uL Lymph # (Auto) 0.77 L (1.2-3.4) K/uL Wells # (Auto) 0.32 (0.11-0.59) K/uL Eos # (Auto) 0.16 (0-0.5) K/uL Baso # (Auto) 0.01 (0-0.2) K/uL Immature Gran # (Auto) 0.07 H (0.00-0.02) K/uL ESR (0-20) mm/hr PT (9.0-12.0) Seconds INR (0.9-1.1) APTT (21.0-31.0) Seconds PTT Ratio Sodium (136-145) mmol/L Potassium (3.5-5.1) mmol/L Chloride (98-107) mmol/L Carbon Dioxide (21-32) mmol/L Anion Gap (3-11) BUN (6-23) mg/dl Creatinine (0.6-1.4) mg/dl Est Cr Clr Drug Dosing Est GFR ( Amer) ml/min Est GFR (Non-Af Amer) ml/min BUN/Creatinine Ratio (10-20) Glucose (70-99(Fasting)) mg/dl POC Glucose (70-99) mg/dl Calcium (8.5-10.1) mg/dl Magnesium (1.7-2.4) mg/dl Iron (35-175) mcg/dl TIBC (250-450) mcg/dl Unsaturated IBC (155-355) mcg/dl Transferrin Transferrin % Sat (20-50) % Ferritin (8-388) ng/ml Total Bilirubin (0.2-1.0) mg/dl AST (13-39) U/L ALT (7-52) U/L Alkaline Phosphatase (34-104) U/L Total Creatine Kinase (30-223) U/L Troponin I (0-0.04) ng/ml C-Reactive Protein (0-0.5) mg/dl B-Natriuretic Peptide (0-100) pg/ml Total Protein (6.0-8.3) gm/dl Albumin (3.4-5.0) gm/dl Globulin (2.5-4.0) gm/dl Albumin/Globulin Ratio (0.9-2) Vitamin B12 (211-911) pg/ml Procalcitonin (0-0.5) ng/ml EBV Capsid Ag IgG Ab EBV Capsid Ag IgM Ab EBV Nuclear Antigen Ab EBV Antibody Interp Monoscreen (Negative) Influ A Molecular Assay (Negative) Influ B Molecular Assay (Negative) SARS-CoV-2, RNA, NAAT (NEGATIVE) Diagnostic Findings Chest X-Ray 05/24/21 15:59 XR chest 2V PA/lateral CLINICAL HISTORY: SOB, cough TECHNIQUE: AP and lateral frontal radiograph of the chest was obtained. Comparison: Comparison is made to chest one view 04/28/2021 FINDINGS: No lines and tubes are seen. Cardiomegaly is noted. Faint bibasilar airspace opacities are seen. There is a trace right pleural effusion. IMPRESSION: Faint bibasilar airspace opacities which may represent atelectasis, pneumonia, and/or aspiration. Trace right pleural effusion. ACT 112: Negative or not required by law. Electronically signed by: Russell Sifuentes M.D. 05/24/2021 4:59 PM PG Care Time/CCT Total # of Minutes Spent Total Time Spent with Patient: Total time spent is greater than 50% in coordination of care (as documented) at patient's floor/unit and/or counseling patient: Coding Level of Care Code 57677 Subseq Hosp Care Lvl 3 Diagnoses Elevated troponin R77.8 AZUL (dyspnea on exertion) R06.00 Interstitial lung disease J84.9 Chronic anemia D64.9 Diabetes E11.42; Z79.4 Diabetes mellitus complication detail: with polyneuropathy Diabetes mellitus complication status: with neurologic complications Diabetes mellitus terminal worker insulin use: with terminal worker use Diabetes mellitus type: type 2 HLD (hyperlipidemia) E78.2 Hyperlipidemia type: mixed hyperlipidemia History of aortic valve replacement Z95.2 Diabetic peripheral neuropathy E11.42 Parkinsonism G20 Parkinsonism type: unspecified Seizure R56.9 Non-ST elevation MS (NSTEMI) I21.4 CAD (coronary atherosclerotic disease) I25.10 PAF (paroxysmal atrial fibrillation) I48.0 (1) Diabetes Diabetes mellitus complication detail: with polyneuropathy Diabetes mellitus complication status: with neurologic complications Diabetes mellitus terminal worker insulin use: with longterm use Diabetes mellitus type: type 2 Qualified Code(s): E11.42 - Type 2 diabetes mellitus with diabetic polyneuropathy; Z79.4 - FPC (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
[2021-05-25] MEDS ORDERED: NON-FORMULARY MEDICATION (Fluticasone-Umeclidin-Vilanter [Trelegy Ellipta] 100-62.5-25 mcg INH SCH (09:00)
[2021-05-25] MEDS ORDERED: ASPIRIN 81 MG ECTAB PO SCH (09:00)
[2021-05-25] MEDS ORDERED: predniSONE 5 MG TAB PO SCH (09:00)
[2021-05-25] MEDS: INSULIN ASPART PER UNIT SC SCH ×4 (09:08→21:43)
[2021-05-25] MEDS ORDERED: SODIUM CHLORIDE 0.9% 500 ML IV ONE (09:15)
--- NOTE | 2021-05-25 09:26 | Cardiology Consultation ---
Date of Consultation May 25, 2021 History of Present Illness Reason for Consultation: Elevated troponin and scapular discomfort and chest pain. Attending Physician: Nya Sprague MD History of Present Illness Xavi has been complaining of increasing shortness of breath beyond his baseline over the last week or so. He also notes worsening scapular discomfort last evening he had neck and what sounds like jaw discomfort. He also describes discomfort in his chest but is very vague about it he does have some reproducible chest discomfort. But the chest pain he is complaining about in the room is different. In addition to his increasing shortness of breath he has had some nausea. He denies any lightheadedness or dizziness. He has not had any worsening lower extremity edema. He denies any recent falls or sick contacts. He has not been vaccinated recently for Covid. He does have a chronic cough due to his interstitial lung disease he notes he feels like he has increased phlegm but really is not able to bring anything up. He He does note increasing fatigue. He is unaware of any palpitations or fluttering or feeling his heart racing. He pretty much lives on 1 floor with only a couple of steps to get into his home he lives by himself with some help from what sounds like area on aging. They seem to do his grocery shopping. He does not really leave the home and less he has doctors appointments. The rest of a complete review of systems is otherwise negative. He does note joint discomfort which is chronic in nature. He does have easy bruising. He denies any dark stools or black stools on Coumadin and aspirin. He does have weakness in his right hand. Allergies Allergy/AdvReac Type Severity Reaction Status Date / Time Iodinated Contrast Media Allergy Severe Anaphylaxis Verified 05/24/21 20:04 shellfish derived Allergy Severe Anaphylaxis Verified 05/24/21 20:04 tamsulosin [From Flomax] Allergy Intermediate Itching Verified 05/24/21 20:04 Tetanus Vaccines and Toxoid Allergy Unknown Unknown Verified 05/24/21 20:04 Home Medications Medication Instructions Recorded Confirmed Type albuterol sulfate 90 mcg/actuation 2 puff INHALATION Q4H PRN 01/20/20 05/24/21 History aerosol inhaler (Ventolin HFA) cholecalciferol (vitamin D3) 50 2,000 unit PO HS 01/20/20 05/24/21 History mcg (2,000 unit) capsule (Vitamin D3) atorvastatin 40 mg tablet 40 mg PO HS 05/28/20 05/24/21 History insulin aspart U-100 100 unit/mL 0 unit SUBCUT ACHS 09/04/20 05/24/21 History (3 mL) subcutaneous pen (Novolog Flexpen U-100 Insulin aspart) aspirin 81 mg tablet,delayed 81 mg PO QAM 10/09/20 05/24/21 History release (Adult Low Dose Aspirin) sennosides 8.6 mg tablet (Senokot) 17.2 mg PO QAM 10/19/20 05/24/21 History gabapentin 300 mg capsule 300 mg PO BID #180 cap 12/28/20 05/24/21 Rx insulin NPH isoph U-100 human 100 See Rx Instructions .ROUTE 01/12/21 05/24/21 Rx unit/mL subcutaneous suspension .COMPLEX #10 ml (Novolin N NPH U-100 Insulin isophane) insulin glargine 100 unit/mL (3 20 unit SUBCUT BID #0 ml 01/12/21 05/24/21 Rx mL) subcutaneous pen (Lantus Solostar U-100 Insulin) calcium carbonate 600 mg calcium 600 mg PO HS 02/11/21 05/24/21 History (1,500 mg) tablet (Calcium) fexofenadine 180 mg tablet 180 mg PO QAM 02/11/21 05/24/21 History (Karlee Allergy) fluticasone fur. 100 mcg-umeclid 1 inh INHALATION QAM 02/11/21 05/24/21 History 62.5 mcg-vilant 25 mcg inhalat.powder (Trelegy Ellipta) potassium chloride 10 mEq 10 meq PO QAM 02/11/21 05/24/21 History tablet,extended release (K-Tab) prednisone 5 mg tablet 5 mg PO QAM 02/11/21 05/24/21 History topiramate 100 mg tablet (Topamax) 100 mg PO BID 02/11/21 05/10/21 History warfarin 10 mg tablet (Jantoven) 7.5 mg PO HS 02/11/21 05/24/21 History allopurinol 100 mg tablet 100 mg QPM 04/10/21 05/24/21 History finasteride 5 mg tablet 5 mg PO QAM 04/28/21 05/24/21 History polyethylene glycol 3350 17 17 g PO DAILY PRN 04/28/21 05/24/21 History gram/dose oral powder (Miralax) nitroglycerin 0.4 mg sublingual 0.4 mg SUBLINGUAL Q5M PRN #25 tab 05/05/21 05/24/21 Rx tablet levetiracetam 500 mg tablet 1,000 mg PO BID #360 tab 05/10/21 05/24/21 Rx (Keppra) carbidopa 25 mg-levodopa 100 mg 1 tab PO TID 05/24/21 05/24/21 History tablet furosemide 20 mg tablet (Lasix) 20 mg PO 3XWK 05/24/21 05/24/21 History Patient History Medical History Abnormal CT scan, chest Abnormal CT scan, chest Acute hyperglycemia Acute left-sided muscle weakness Anemia CAD (coronary artery disease) Chest pain Chronic pulmonary aspiration Dehydration Diabetes Dyspnea on exertion Fall Fall Fluid overload HLD (hyperlipidemia) Hypoxia Interstitial lung disease Interstitial lung disease Interstitial lung disease Interstitial lung disease due to connective tissue disease Lung nodule Neurogenic claudication Nocturnal hypoxemia Nocturnal hypoxia Palliative care encounter Polymyositis Polymyositis Polymyositis Prostate cancer s/p XRT Rheumatoid arthritis Rheumatoid arthritis Shortness of breath Stroke-like symptom 12/2019, w/ blurry vision and dysarthria. mild R sided wkness. attending outpatient physical therapy w/ good improvement in strength (5+/5 strength of all 4 extremities as of 05/28/20) Subtherapeutic international normalized ratio (INR) Supratherapeutic INR Supratherapeutic INR Thoracic ascending aortic aneurysm s/p repair Weakness Weakness Surgical History H/O hernia repair History of aortic valve replacement mechanical History of cholecystectomy History of fusion of cervical spine History of gastric bypass lap band History of heart artery stent History of lung biopsy 2019 History of partial nephrectomy Family History Mother , age 87 of pulmonary issues Rheumatoid arthritis Father , in his mid 80s of a stroke Stroke Other Coronary heart disease Social History Smoking Status: Never smoker Second Hand Exposure: No; Hx Alcohol Use: No Hx Substance Use: No Preferred Language: Setswana Communication Ability: Effective Hearing Ability: Hard of Hearing Carry Out Clerk Required: No Beliefs That Will Affect Care: None marital status: / Current Living Situation: Alone Current Living Situation Comment: Personal care comes in 3 times a week and son lives next door current occupational status: retired 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 He does not appear to be in overt distress. HEENT: 2+ carotid upstrokes no evidence of carotid bruits Lungs: Coarse breath sounds bilaterally no rhonchi or wheezing Heart: IRegular rate and rhythm he has a crisp click of his mechanical aortic valve replacement there were no appreciable diastolic murmurs Abdomen: Soft nontender distended positive bowel sounds Extremities: No clubbing cyanosis. He has no edema of the right leg he has trace edema of the left leg Psychiatric his affect appeared appropriate I reviewed all of his diagnostic data. His EKG reveals no ischemic changes. His troponin is elevated this morning at 41. His creatinine is at 1.2. His hemoglobin is 9.1. His chest x-ray is consistent with interstitial lung disease. I did personally review his echocardiogram this morning his LV function appears relatively preserved she has normal gradients across his mechanical aortic valve with mild what appears to be paravalvular and valvular regurgitation. His RV function appears relatively preserved. IMPRESSIONS: 1. Markedly elevated troponin most consistent with a non-ST elevation TN given his story less likely myocarditis 2. History of mechanical aortic valve placed in 2003 at the time of an aortic dissection with repair of his a sending aorta 3. History of a left main stent in February 2019 4. 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 Multiple TIAs 6. Chronic anticoagulation with a goal INR of 2-1/2-3-1/2 with 81 mg of aspirin given his mechanical aortic valve and chronic atrial fibrillation 7. Chronic A. fib rate controlled 8. 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 Parkinson's disease 10. Diabetes mellitus type 2 His case was discussed with Dr. Vincent of interventional cardiology although his EKG does not reveal any acute changes given his markedly elevated troponin and his symptoms it is concerning that he has a non-ST ovation myocardial infarction. Although there is a chance that this represents myocarditis he really does not describe an upper respiratory tract infection recently or any sick contacts. He has not been recently vaccinated for Covid either and his Covid test here is negative in the hospital. We discussed the risk and benefits of cardiac catheterization risk including but not limited to bleeding or infection of the puncture site damage to his radial or femoral artery, risk of contrast-induced nephropathy, and allergic reaction to contrast were discussed. He did eat breakfast this morning we will therefore wait till this afternoon as he is stable to do his catheterization. We will do a radial approach given his INR of 2-1/2 this morning. We will start gentle hydration as he has not eaten or drank much in the last 24 hours. His blood sugars are low this morning and therefore I would hold his morning insulin while he is n.p.o. Further recommendations will be forthcoming. All this was discussed with the patient as well as Dr. Vincent and the primary service.
[2021-05-25 10:03] LABS: Ferritin 27.4 ng/ml (8-388)
[2021-05-25] MEDS: FINASTERIDE 5 MG TAB PO SCH (10:27)
[2021-05-25] MEDS: FEXOFENADINE HCL 180 MG TAB PO SCH (10:27)
[2021-05-25] MEDS: CARBIDOPA/LEVODOPA 25/100MG TAB PO SCH ×3 (10:27→21:15)
[2021-05-25] MEDS: FLUTICASONE FUROATE 100MCG 14 PUFFS/INHALER INH SCH (10:28)
[2021-05-25] MEDS: FUROSEMIDE 20 MG TAB PO SCH (10:28)
[2021-05-25] MEDS: levETIRAcetam 500 MG TAB PO SCH ×2 (10:28→21:13)
[2021-05-25] MEDS: GABAPENTIN 300 MG CAP PO SCH ×2 (10:28→21:13)
[2021-05-25] MEDS: SENNA 8.6 MG TAB PO SCH (10:29)
[2021-05-25] MEDS: POTASSIUM CHLORIDE 10 MEQ TABCR PO SCH (10:29)
[2021-05-25] MEDS: UMECLIDINIUM/VILANTEROL 62.5/25MCG 7 PUFFS/INHALER INH SCH (10:29)
[2021-05-25] MEDS: INSULIN GLARGINE SOLOSTAR 100 UNITS/ML 3 ML PEN SQ SCH ×2 (10:35→21:17)
--- NOTE | 2021-05-25 10:38 | Cardiology Consultation ---
Date of Consultation May 25, 2021 Assessment & Plan (1) Non-ST elevation UT (NSTEMI): Patient with history of prior LMCA stent here with dyspnea/shoulder pain and significantly elevated troponin. Agree with proceeding with cardiac catheterization to evaluate for recurrent high risk disease. Discussed procedure including risk, benefits with patient and he wishes to proceed. With mechanical valve we will plan to proceed with procedure via radial artery with current anticoagulation. We will pretreat for dye allergy prior to procedure. Plan for procedure later this afternoon. Please keep n.p.o. History of Present Illness Attending Physician: Nya Sprague MD History of Present Illness Mr. Bradford is a very pleasant 76-year-old man with a complex prior history including prior aortic dissection repair with mechanical AVR and CAD with post left main stent 02/[address] Chau. He was seen today in the ED preparation for left heart catheterization. He was admitted yesterday with increased exertional dyspnea, left shoulder pain. Found to have an elevated troponin up to 41. ECG unremarkable. Continues to have left shoulder pain. Last cardiac cath done at an outside hospital in April 2019 in the setting of viral myocarditis. At that time left main stent patent with mild nonobstructive disease. He reports a history of anaphylaxis to IV contrast dye and previously has been pretreated prior to dye exposure. Review of current labs, hemoglobin slightly reduced at 9.2, platelets normal, Creatinine baseline 1.2. INR 2.5. Last warfarin the evening of 05/23. Allergies Allergy/AdvReac Type Severity Reaction Status Date / Time Iodinated Contrast Media Allergy Severe Anaphylaxis Verified 05/24/21 20:04 shellfish derived Allergy Severe Anaphylaxis Verified 05/24/21 20:04 tamsulosin [From Flomax] Allergy Intermediate Itching Verified 05/24/21 20:04 Tetanus Vaccines and Toxoid Allergy Unknown Unknown Verified 05/24/21 20:04 Home Medications Medication Instructions Recorded Confirmed Type albuterol sulfate 90 mcg/actuation 2 puff INHALATION Q4H PRN 01/20/20 05/24/21 History aerosol inhaler (Ventolin HFA) cholecalciferol (vitamin D3) 50 2,000 unit PO HS 01/20/20 05/24/21 History mcg (2,000 unit) capsule (Vitamin D3) atorvastatin 40 mg tablet 40 mg PO HS 05/28/20 05/24/21 History insulin aspart U-100 100 unit/mL 0 unit SUBCUT ACHS 09/04/20 05/24/21 History (3 mL) subcutaneous pen (Novolog Flexpen U-100 Insulin aspart) aspirin 81 mg tablet,delayed 81 mg PO QAM 10/09/20 05/24/21 History release (Adult Low Dose Aspirin) sennosides 8.6 mg tablet (Senokot) 17.2 mg PO QAM 10/19/20 05/24/21 History gabapentin 300 mg capsule 300 mg PO BID #180 cap 12/28/20 05/24/21 Rx insulin NPH isoph U-100 human 100 See Rx Instructions .ROUTE 01/12/21 05/24/21 Rx unit/mL subcutaneous suspension .COMPLEX #10 ml (Novolin N NPH U-100 Insulin isophane) insulin glargine 100 unit/mL (3 20 unit SUBCUT BID #0 ml 01/12/21 05/24/21 Rx mL) subcutaneous pen (Lantus Solostar U-100 Insulin) calcium carbonate 600 mg calcium 600 mg PO HS 02/11/21 05/24/21 History (1,500 mg) tablet (Calcium) fexofenadine 180 mg tablet 180 mg PO QAM 02/11/21 05/24/21 History (Karlee Allergy) fluticasone fur. 100 mcg-umeclid 1 inh INHALATION QAM 02/11/21 05/24/21 History 62.5 mcg-vilant 25 mcg inhalat.powder (Trelegy Ellipta) potassium chloride 10 mEq 10 meq PO QAM 02/11/21 05/24/21 History tablet,extended release (K-Tab) prednisone 5 mg tablet 5 mg PO QAM 02/11/21 05/24/21 History topiramate 100 mg tablet (Topamax) 100 mg PO BID 02/11/21 05/10/21 History warfarin 10 mg tablet (Jantoven) 7.5 mg PO HS 02/11/21 05/24/21 History allopurinol 100 mg tablet 100 mg QPM 04/10/21 05/24/21 History finasteride 5 mg tablet 5 mg PO QAM 04/28/21 05/24/21 History polyethylene glycol 3350 17 17 g PO DAILY PRN 04/28/21 05/24/21 History gram/dose oral powder (Miralax) nitroglycerin 0.4 mg sublingual 0.4 mg SUBLINGUAL Q5M PRN #25 tab 05/05/21 05/24/21 Rx tablet levetiracetam 500 mg tablet 1,000 mg PO BID #360 tab 05/10/21 05/24/21 Rx (Keppra) carbidopa 25 mg-levodopa 100 mg 1 tab PO TID 05/24/21 05/24/21 History tablet furosemide 20 mg tablet (Lasix) 20 mg PO 3XWK 05/24/21 05/24/21 History Patient History Medical History Abnormal CT scan, chest Abnormal CT scan, chest Acute hyperglycemia Acute left-sided muscle weakness Anemia CAD (coronary artery disease) Chest pain Chronic pulmonary aspiration Dehydration Diabetes Dyspnea on exertion Fall Fall Fluid overload HLD (hyperlipidemia) Hypoxia Interstitial lung disease Interstitial lung disease Interstitial lung disease Interstitial lung disease due to connective tissue disease Lung nodule Neurogenic claudication Nocturnal hypoxemia Nocturnal hypoxia Palliative care encounter Polymyositis Polymyositis Polymyositis Prostate cancer s/p XRT Rheumatoid arthritis Rheumatoid arthritis Shortness of breath Stroke-like symptom 12/2019, w/ blurry vision and dysarthria. mild R sided wkness. attending outpatient physical therapy w/ good improvement in strength (5+/5 strength of all 4 extremities as of 05/28/20) Subtherapeutic international normalized ratio (INR) Supratherapeutic INR Supratherapeutic INR Thoracic ascending aortic aneurysm s/p repair Weakness Weakness Surgical History H/O hernia repair History of aortic valve replacement mechanical History of cholecystectomy History of fusion of cervical spine History of gastric bypass lap band History of heart artery stent History of lung biopsy 2019 History of partial nephrectomy Family History Mother , age 87 of pulmonary issues Rheumatoid arthritis Father , in his mid 80s of a stroke Stroke Other Coronary heart disease Social History Smoking Status: Never smoker Second Hand Exposure: No; Hx Alcohol Use: No Hx Substance Use: No Preferred Language: Russian Communication Ability: Effective Hearing Ability: Hard of Hearing Trigonometry Teacher Required: No Beliefs That Will Affect Care: None marital status: / Current Living Situation: Alone Current Living Situation Comment: Personal care comes in 3 times a week and son lives next door 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 occupational status: 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 How many Children do You have: 1 Feels Safe at Home: Yes Safety Concerns: Feels Safe At This Time Assistive Devices: Oxygen - at Night and Walker Assistive Devices Comment: walker with PT Review of Systems Review of Systems: All systems reviewed & are unremarkable except as noted in HPI & below Physical Exam Physical Exam: General: Comfortable HEENT: Sclerae anicteric Vascular: 2+ right radial Extremities: Well perfused, no peripheral edema Psych: Alert orient x3, normal affect and mood Results & Data ([facility]) Vital Signs (Past 12 Hours) Vital Signs Pulse Resp BP Pulse Ox 05/25/21 03:21 63 16 121/66 97 05/25/21 01:44 58 L 28 H 137/78 99 PG Care Time/CCT Total # of Minutes Spent Total Time Spent with Patient: Total time spent is greater than 50% in coordination of care (as documented) at patient's floor/unit and/or counseling patient: Coding Level of Care Code 93807 Initial Inpt Care Lvl 2 Diagnoses Non-ST elevation UT (NSTEMI) I21.4
[2021-05-25] MEDS ORDERED: predniSONE 5 MG TAB PO STA (11:03)
[2021-05-25] MEDS ORDERED: predniSONE 1 MG TAB PO STA (11:04)
[2021-05-25 11:40] LABS: BUN Creatinine Ratio 26.7 (10-20); Calcium 8.7 mg/dl (8.5-10.1); Creatinine Clr Calc Pharmacy 67.7 ml/min; Est GFR (African American) 70.5 ml/min; Est GFR (Non-African American) 60.8 ml/min; Magnesium 1.7 mg/dl (1.7-2.4); Potassium 3.2 mmol/L (3.5-5.1)
[2021-05-25] MEDS ORDERED: IRON SUCROSE 300 MG in SODIUM CHLORIDE 0.9% 250 ML IV ONE (13:00)
[2021-05-25] MEDS: MoRPHine SULFATE 2 MG/ML CARP IV PRN (13:46)
[2021-05-25] MEDS: ONDANSETRON INJ 2 MG/ML 2 ML VIAL IV PRN (13:46)
[2021-05-25] MEDS ORDERED: HEPARIN (PORCINE) 1000 UNIT/ML 10 ML (CATH LAB USE ONLY) ONE (14:09)
[2021-05-25] MEDS ORDERED: fentaNYL citrate 100 MCG/2 ML VIAL ONE (14:09)
[2021-05-25] MEDS ORDERED: diphenhydrAMINE 50 MG/ML VIAL ONE (14:09)
[2021-05-25] MEDS ORDERED: niCARdipine HCL INJ 2.5 MG/ML 10 ML AMP ONE (14:09)
[2021-05-25] MEDS ORDERED: MIDAZOLAM HCL 1 MG/ML 2ML VIAL ONE (14:09)
[2021-05-25] MEDS ORDERED: NITROGLYCERIN/D5W 100MCG/ML 20ML SYR ONE (14:09)
[2021-05-25] MEDS ORDERED: methylPREDNISolone 125 MG/2 ML VIAL ONE (14:10)
[2021-05-25] MEDS ORDERED: FAMOTIDINE 20 MG in SYRINGE 3 ML IV STA (14:11)
--- NOTE | 2021-05-25 14:37 | Pre Anesthesia Assessment ---
Date of Service May 25, 2021 Pre Sedation Assessment Vital Signs Temp Pulse Pulse Resp BP BP Pulse Ox 05/25/21 13:54 70 18 135/80 96 05/25/21 12:00 98.4 F 78 18 147/69 H 94 05/25/21 08:00 98.4 F 75 18 138/85 98 05/25/21 03:21 63 16 121/66 97 05/25/21 01:44 58 L 28 H 137/78 99 05/24/21 21:00 62 18 162/83 H 99 05/24/21 19:12 100 05/24/21 19:11 63 22 162/83 H 100 05/24/21 15:54 97.5 F L 84 20 147/83 H 99 Cardiovascular RRR, no murmur, no edema Respiratory normal respiratory effort, lungs clear to auscultation Pre-Sedation Airway Assessment Smoking Status: Never smoker Hx Sleep Apnea: No Hx Difficult Intubation: No Short, Thick Neck: No Thyromental Distance: > or= 3.5 Finger Breadths Oral Cavity: + WNL Mallampati Class: II ASA: ASA3 NPO Status Date of Last Intake of Fluids: 05/25/21 Time of Last Intake of Fluids: 08:00 Date of Last Intake of Solid Food: 05/25/21 Time of Last Intake of Solid Foods: 08:00 Procedure Planning Contraindications for Sedation: none Current Medications Reviewed: Yes Notes The planned sedation has been discussed with the patient. Informed Consent was obtained. I have identified the patient, determined the appropriateness of sedation and have assessed the patient immediately prior to the procedure. All medicine(s) and interventions are by my order.
--- NOTE | 2021-05-25 15:10 | Post Anesthesia Assessment ---
Date of Service May 25, 2021 Post Sedation Assessment Vital Signs Temp Pulse Pulse Resp BP BP Pulse Ox 05/25/21 13:54 70 18 135/80 96 05/25/21 12:00 98.4 F 78 18 147/69 H 94 05/25/21 08:00 98.4 F 75 18 138/85 98 05/25/21 03:21 63 16 121/66 97 05/25/21 01:44 58 L 28 H 137/78 99 05/24/21 21:00 62 18 162/83 H 99 05/24/21 19:12 100 05/24/21 19:11 63 22 162/83 H 100 05/24/21 15:54 97.5 F L 84 20 147/83 H 99 Recovery Score Activity: Moves 4 extremities Respiration: Deep Breath/Cough Circulation: +/-20% PreAnes Value Consciousness: Fully Awake Oxygen Saturation: O2 needed for >90% Discharge Sedation Level of Care: Fast Track Phase II Post Sedation Plan On clinical assessment, the patient appears to have tolerated the sedation without complications. Patient is recovering as anticipated. Patient will continue to be monitored by nursing and may be discharged when sedation discharge criteria are met per below protocol. Upon Completions of procedure up to 15 minutes continue every 5 minute vital signs and the P.A.R. score; then discharge to a Phase I or Fast Track to Phase II per the following guidelines: * Discharge Patient to appropriate Phase II area if PAR is 8 or greater or return to pre- procedure baseline. The post - procedure orders will be as directed. * If PAR score is less than 8 or not return to pre-procedure baseline then patient will follow Phase I monitoring till PAR is reached for Phase II. The Phase I may be done in procedure room or may call to secure a Phase I area. * If naloxone or flumazenil are used for reversal, hold in Phase I for continued monitoring from when last reversal dose was given for a minimum of 60 minutes or longer pending the nurse and/or physician discretion of patient condition before discharge to Phase II. Please call the Sedation Physician to re-evaluate and complete post-note for discharge to Phase II area. Do NOT discharge from procedure sedation or Phase 1 until post- sedation evaluation note is complete by procedure /sedation MD Sedation Discharge Instructions to be given to the patient at discharge to home.
--- NOTE | 2021-05-25 15:21 | Cardiac Catheterization ---
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 Cardiac Status Clinical evaluation leading to the procedure CAD Presenation: Non STEMI Anginal Classification: CCS III Heart Failure: No Cardiogenic Shock within 24 Hours: No Cardiac Arrest within 24 Hours: No Imaging Studies Past 6 Months: Yes Stress Studies Past 6 Months: No Diagnostic Physicians Name: Cody Vincent MD Status: Elective Closure Device Percutaneous Entry Location: Radial Closure Device: Radial Band Recommendations: Medical Therapy and/or Counseling Intraprocedure Events Significant Disection: No Perforation: No Cardiac Cath Procedure Full Procedure Date May 25, 2021 Pre-Procedure Diagnosis Pre-Procedure Diagnosis: Non STEMI and CAD AUC Score AUC Score: 8 Post-Procedure Diagnosis Post-Procedure Diagnosis: Mild CAD Procedure(s) Performed Procedure(s) Performed: Coronary Angiography and Ultrasound Guided Vascular Access Computer Programming Supervisor Cody Vincent MD Pododermatologist(s) Adi Estimated Blood Loss Estimated Blood Loss: 10 Medication(s) Medication(s): Fentanyl, Lidocaine 1%, Nicardipine, Nitroglycerin and Versed Summary of Findings Indication: NSTEMI. History of coronary artery disease with prior left main stent Access: 6 Fr right radial artery under ultrasound guidance Catheters: [place] Findings: LM -normal caliber, long vessel, proximal/mid stent widely patent. LAD -large caliber, 20 to 30% mid segment disease, distal vessel tapers to apex. Medium D1, D2 without significant disease. Circumflex -medium caliber, angulated. Gives off 1 large LPL. No significant disease. RCA -dominant, large caliber vessel, luminal irregularities Arterial Closure: TR band Summary: 1. Mild nonobstructive coronary artery disease Widely patent left main stent without restenosis -20 to 30% mid LAD disease Recommendations: No obstructive CAD to explain significant troponin elevation. Suspect troponin secondary to myocarditis, stress-induced cardiomyopathy versus less likely vasospasm. Further management per Dr. Chau. Hemodynamics Rest Ao:: 105/54/77 Final Ao: 109/58/80 LV: -- Recommendations Recommendations: Medical Therapy and/or Counseling Specimens Specimens: None Radiation Exposure (mGy) 873 Contrast (mls) 45 Fluids (cc crystalloids) Fluids (cc crystalloids): 25 Drains Drains: none Anesthesia moderate [id number] Procedural Complication(s) None Disposition PCU I attest to the content of the Intraoperative Record and any orders documented therein. Any exceptions are noted below. [facility] Card Cath Procedure Codes Cardiac Catheterization Procedure 1: Cardiovascular Cath Procedures: 94325 Coronaries Therapeutic Services & Ancillary Proc Procedure 1: Cardiovascular Tx and Anc Procedures: 03053 Ultrasonic Guidance Vascular Access Moderate Sedation Procedure 1: Sedation/Anesthesia: 27639 Mod Sedation by the same physician;Init15 Min Child Age 5 & Up PG Care Time/CCT Total # of Minutes Spent Total Time Spent with Patient: Total time spent is greater than 50% in coordination of care (as documented) at patient's floor/unit and/or counseling patient:
--- NOTE | 2021-05-25 15:38 | Electrocardiogram Report ---
Test Reason : Blood Pressure : / mmHG Vent. Rate : 060 BPM Atrial Rate : 060 BPM P-R Int : 148 ms QRS Dur : 084 ms QT Int : 432 ms P-R-T Axes : 037 046 050 degrees QTc Int : 432 ms Normal sinus rhythm Normal ECG When compared with ECG of 05-MAY-2021 00:08, No significant change was found Confirmed by Cody Soto ([id number]) on 05/25/2021 3:38:01 PM Referred By: Ankit Ortega Confirmed By:Wyatt Soto
--- NOTE | 2021-05-25 15:49 | Electrocardiogram Report ---
Test Reason : Blood Pressure : / mmHG Vent. Rate : 071 BPM Atrial Rate : 071 BPM P-R Int : 152 ms QRS Dur : 082 ms QT Int : 432 ms P-R-T Axes : 016 -01 092 degrees QTc Int : 469 ms Normal sinus rhythm Poor R wave progression, consider anterior MA vs. lead placement vs. LVH Abnormal ECG When compared with ECG of 24-MAY-2021 19:21, (unconfirmed) No significant change was found Confirmed by Cody Soto ([id number]) on 05/25/2021 3:48:34 PM Referred By: Ankit Ortega Confirmed By:Wyatt Soto
[2021-05-25] MEDS ORDERED: POTASSIUM CHLORIDE CRTAB 20 MEQ TABCR PO STA (16:31)
[2021-05-25] MEDS: MAGNESIUM SULFATE / D5W 1 GM/100 ML BAG IV SCH ×2 (17:17→19:23)
[2021-05-25] MEDS ORDERED: PHARMACY GLYCEMIC MGMT CONSULT PRN (17:59)
[2021-05-25 18:38] LABS: Lyme Ab IgG w/WB Rflx Negative (Negative); Lyme Ab IgM w/WB Rflx Negative (Negative)
[2021-05-25] MEDS: COLCHICINE 0.6 MG TAB PO SCH (21:11)
[2021-05-25] MEDS: TOPIRAMATE 100 MG TAB PO SCH (21:13)
[2021-05-25] MEDS: CALCIUM CARBONATE 1250MG TAB PO SCH (21:14)
[2021-05-25] MEDS: CHOLECALCIFEROL 1,000 UNITS 25 MCG TAB PO SCH (21:14)
[2021-05-25] MEDS: allopurinoL 100 MG TAB PO SCH (21:15)
[2021-05-25] MEDS: ATORVASTATIN 40 MG TAB PO SCH (21:15)
[2021-05-25] MEDS: WARFARIN SOD 7.5 MG TAB PO SCH (23:00)
[2021-05-26 06:11] LABS: Basophils # (auto) 0.01 K/uL (0-0.2); Basophils % (auto) 0.2 %; Eosinophils # (auto) 0.01 K/uL (0-0.5); Eosinophils % (auto) 0.2 %; Hematocrit (blood only) 32.7 % (42-52); Hemoglobin 9.7 g/dL (14.0-18.0); Immature Granulocytes # (auto) 0.04 K/uL (0.00-0.02); Immature Granulocytes % (auto) 0.7 %; Lymphocytes # (auto) 0.51 K/uL (1.2-3.4); Lymphocytes % (auto) 8.7 %; Mean Corpuscular Hemoglobin 24.1 pg (25-34); Mean Corpuscular Hgb Conc 29.7 g/dL (32-36); Mean Corpuscular Volume 81.3 fL (80-100); Mean Platelet Volume 9.3 fL (7.4-10.4); Monocytes # (auto) 0.34 K/uL (0.11-0.59); Monocytes % (auto) 5.8 %; Neutrophils # (auto) 4.98 K/uL (1.4-6.5); Neutrophils % (auto) 84.4 %; Platelet Count 207 K/uL (130-400); RDW Coefficient of Variation 16.5 % (11.5-14.5); RDW Standard Deviation 50.1 fL (36.4-46.3); Red Blood Count 4.02 M/uL (4.7-6.1); White Blood Count 5.89 K/uL (4.8-10.8)
[2021-05-26 06:23] LABS: INR 2.2 (0.9-1.1); Prothrombin Time 20.8 Seconds (9.0-12.0)
[2021-05-26 06:35] LABS: BUN Creatinine Ratio 24.8 (10-20); Calcium 8.8 mg/dl (8.5-10.1); Creatinine Clr Calc Pharmacy 60.9 ml/min; Est GFR (Non-African American) 53.5 ml/min; Potassium 4.5 mmol/L (3.5-5.1)
--- NOTE | 2021-05-26 08:03 | Hospitalist Progress Note ---
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 Procal 0.48 BNP wnl ECHO LV preserved with normal gradient across mechanical valve with mild paravalvular and valvular regurgitation. RV function relatively preserved Trop elevated to 39.2 on admission, thought viral related give UTI symptoms 5 days prior. Heparin gtt d/c at that time --> s/p cath 05/25 non obstructive Started colchicine BID evening 05/25 and to continue x 3 months, then likely daily following to prevent recurrence Did discuss with patients special forces officer, who also notes complicated history/prior neg rheum factor but positive CCP/aldolase/etc --> rec 40mg prednisone daily, decrease by 10mg weekly until seen. Initially f/u appt 06/15, moved up to 06/06 --> given continued chest discomfort/elevated trop, discussed with cardiology and they have placed patient on aspirin 81mg BID as well as protonix BID. Likely not able to tolerate any higher doses of the aspirin also topical voltaren as he uses this at home for pain Pain control/antiemetics prn Supportive care Constipation --> had not moved bowels since last sunday. uses miralax Q6H at home with this and encouraged ambulation (2) Elevated troponin: Plan: elevated in setting of myocarditis -- see above monitor on tele (3) CAD (coronary atherosclerotic disease): Plan: follows with Dr Chau. 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 A [facility] catheterization in April 2019 noted a patent left main stent and mild diffuse disease within the LAD, LCx, and RCA ECHO 02/14/21 noted normal systolic function with ejection fraction 55-60% s/p cath as above, non-obs see tx #1 continue statin, asa (increased to BID under #1) Added metoprolol 12.5 mg daily for vtach -- 8 bt run overnight. monitor BP as did have episode of hypotension last evening, BPs much improved (4) AZUL (dyspnea on exertion): Plan: - see above -Patient has history of interstitial lung dz, pulmonary function at baseline is poor. Also withiron deficiency anemia --> Venofer x 2 today, 3rd dose in AM Of note, was on prednisone taper starting at 20mg at d/c last admission, down to 10 but unable to tolerate and currently has been on 12mg daily -- order changed in system --> increased to 40mg daily as above per rheum recs on room air (5) Interstitial lung disease: Plan: Patient follows with rheumatology as well as with Pulmonary - Continue prednisone 5mg per day ---> has been taking 12mg daily. changed as above. suspect would be able to decrease once iron stores repleted/cath for further investigation of able --> increased to 40mg daily as above per rheum recs , taper by 10mg weekly until follow up (6) Chronic anemia: Plan: chronic, macrocytic given shortness of breath/neuropathy, checked iron/B12 iron 26, normal TIBC. ferritin 27.4. Trans % sat 9 LOW --> iron deficiency anemia and given venofer x 1 05/25, 05/26, repeat again tomorrow B12 also low/normal --> IM while inpatient, PO at discharge hgb 9.7 from 9.2 previously (7) Diabetes: Plan: A1c 7.05 April 2021 NPH 40 u today consulted pharm given going to increase steroids/taper as above monitor BSGs -- have been elevated -- also has dextrose in venofer (8) HLD (hyperlipidemia): Plan: -continue Atorvastatin 40 Lipid panel in am, increase if needed (9) History of aortic valve replacement: Plan: - No acute needs - ECHO with myocarditis workup - Continue with his Coumadin 7.5 mg daily INR 2.2 today, monitor in AM. Add additional dose if needed. Had been therapeutic yesterday (10) Diabetic peripheral neuropathy: Plan: Continue Gabapentin Also replacing vitamin B12 which may be contributing (11) Parkinsonism: Plan: Started trial Sinemet in June - He follows with Neurology Dr Sheikh - Continue Sinemet 25 (12) Seizure: Plan: Patient reports history of seizures- he has seen a headache specialist - Continue Keppra, Topiramate, Gabapentin - Seizure precautions -- no activity noted f/u outpatient for further eval epilepsy vs PNES (13) Non-ST elevation IA (NSTEMI): Plan: concerns for such on admission given elevated trop/hx CAD. Cath without obstructive disease ruled out (14) PAF (paroxysmal atrial fibrillation): Plan: on coumadin, also with mechanical AVR Admission and Anticipated Discharge Date Admission Date: May 24, 2021 Supervising Physician Co-Signing Physician Notes PA Supervision Note: I did not personally see or examine the patient today, but I verified all peña points of PETRA Gates's assessment and plan with the following exceptions/additions: None Subjective patient evaluated this morning initially told RN no chest pain at this time., minimal chest pain for cardiology and then states to me that he is having worsening chest pain exact same distribution as day prior currently getting venofer, discussed iron deficiency as well as B12 deficiency, IM while inpatient and oral at discharge. will repeat venofer in AM for 3rd dose. of note, did get Pepcid yesterday and will order daily he has hypoactive BS but not up/moving much -- encouraged ambulation and therapy to eval today he states he wishes he got a bed up on the floor -- beds in ER entirely too cold for him and doesn't like the florescent lights he is very concerned about being discharged too early -- did have episode of vtach overnight, mag wnl and would like to continue to monitor on telemetry overnight. has not gotten asa this morning per cards wanting to avoid at this time. Review of Systems Review of Systems: All systems reviewed & are unremarkable except as noted in HPI & below Results & Data Results & Data ([facility]) Vital Signs (Past 12 Hours) Vital Signs Pulse Resp BP Pulse Ox Pulse Ox 05/26/21 04:55 90 19 82/46 L 96 05/26/21 01:00 58 L 15 96/60 L 95 05/26/21 00:25 95 05/25/21 21:00 68 16 113/62 95 PG Care Time/CCT Total # of Minutes Spent Total Time Spent with Patient: Total time spent is greater than 50% in coordination of care (as documented) at patient's floor/unit and/or counseling patient: Coding Level of Care Code 72428 Subseq Hosp Care Lvl 3 Diagnoses Non-ST elevation IA (NSTEMI) I21.4 Elevated troponin R77.8 CAD (coronary atherosclerotic disease) I25.10 AZUL (dyspnea on exertion) R06.00 Interstitial lung disease J84.9 Chronic anemia D64.9 Diabetes E11.42; Z79.4 Diabetes mellitus complication detail: with polyneuropathy Diabetes mellitus complication status: with neurologic complications Diabetes mellitus mcc insulin use: with operation manager use Diabetes mellitus type: type 2 HLD (hyperlipidemia) E78.2 Hyperlipidemia type: mixed hyperlipidemia History of aortic valve replacement Z95.2 Diabetic peripheral neuropathy E11.42 Parkinsonism G20 Parkinsonism type: unspecified Seizure R56.9 PAF (paroxysmal atrial fibrillation) I48.0 Myocarditis I51.4 (1) Diabetes Diabetes mellitus complication detail: with polyneuropathy Diabetes mellitus complication status: with neurologic complications Diabetes mellitus operation manager insulin use: with operation manager use Diabetes mellitus type: type 2 Qualified Code(s): E11.42 - Type 2 diabetes mellitus with diabetic polyneuropathy; Z79.4 - ore 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
[2021-05-26] MEDS ORDERED: IRON SUCROSE 300 MG in SODIUM CHLORIDE 0.9% 250 ML IV ONE (08:30)
[2021-05-26] MEDS: INSULIN ASPART PER UNIT SC SCH ×4 (08:37→21:02)
[2021-05-26] MEDS: FINASTERIDE 5 MG TAB PO SCH (08:37)
[2021-05-26] MEDS: COLCHICINE 0.6 MG TAB PO SCH ×2 (08:37→20:53)
[2021-05-26] MEDS: CARBIDOPA/LEVODOPA 25/100MG TAB PO SCH ×3 (08:37→20:50)
[2021-05-26] MEDS: FEXOFENADINE HCL 180 MG TAB PO SCH (08:37)
[2021-05-26] MEDS: GABAPENTIN 300 MG CAP PO SCH ×2 (08:38→20:52)
[2021-05-26] MEDS: levETIRAcetam 500 MG TAB PO SCH ×2 (08:38→20:51)
[2021-05-26] MEDS: FLUTICASONE FUROATE 100MCG 14 PUFFS/INHALER INH SCH (08:38)
[2021-05-26] MEDS: TOPIRAMATE 100 MG TAB PO SCH ×2 (08:38→20:55)
[2021-05-26] MEDS: predniSONE 20 MG TAB PO SCH (08:38)
[2021-05-26] MEDS: POTASSIUM CHLORIDE 10 MEQ TABCR PO SCH (08:38)
[2021-05-26] MEDS: SENNA 8.6 MG TAB PO SCH (08:38)
[2021-05-26] MEDS: UMECLIDINIUM/VILANTEROL 62.5/25MCG 7 PUFFS/INHALER INH SCH (08:39)
[2021-05-26] MEDS: INSULIN GLARGINE SOLOSTAR 100 UNITS/ML 3 ML PEN SQ SCH ×2 (08:39→21:05)
[2021-05-26] MEDS ORDERED: ASPIRIN 81 MG ECTAB PO SCH (09:00)
[2021-05-26] MEDS ORDERED: predniSONE 1 MG TAB PO SCH (09:00)
[2021-05-26] MEDS ORDERED: predniSONE 10 MG TABLET PO SCH (09:00)
--- NOTE | 2021-05-26 09:02 | Cardiology Progress Note ---
Date of Service May 26, 2021 Assessment & Plan (1) Myocarditis: Plan: IMPRESSIONS: 1. Markedly elevated troponin secondary to myocarditis 2. History of mechanical aortic valve placed in 2003 at the time of an aortic dissection with repair of his a sending aorta 3. History of a left main stent in February 2019 4. 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 Multiple TIAs 6. Chronic anticoagulation with a goal INR of 2-1/2-3-1/2 with 81 mg of aspirin given his mechanical aortic valve and chronic atrial fibrillation 7. Chronic A. fib rate controlled 8. 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 Parkinson's disease 10. Diabetes mellitus type 2 Mr. Bradford's cardiac catheterization yesterday was unrevealing of obstructive CAD. He was started on BID colchicine. Given that this is his second case of myocarditis, he should likely remain on daily colchicine in the future after his acute episode is treated. His trop began trending down yesterday after peaking at 41. His myocarditis may be associated with his autoimmune disorders, could possibly be viral although he denies any URI or illness symptoms prior to this. He has not been recently vaccinated for Covid either and his Covid test here is negative in the hospital. He continues with Coumadin and his INR was 2.2 this morning. His goal is 2.5-3.5 given his history of mechanical AVR and afib. Would continue with his usual dosing and recheck his INR in the morning. His ASA is on hold while he is on bid colchicine given it's antiplatelet effect and his significant bruising. His blood pressure was low overnight and his heart rate is in the 60s so I don't think he has room to add beta amor at this time. Magnesium and potassium were replaced yesterday and are wnl today. I would recommend he stay inpatient tonight to ensure no further arrhythmia. Admission and Anticipated Discharge Date Admission Date: May 24, 2021 Subjective Mr. Bradford continues to have persistent chest pain though it is not worsening. He otherwise is at his baseline concerning his sob. No dizziness. He did have one brief run of Vtach over night Review of Systems Review of Systems: All systems reviewed & are unremarkable except as noted in HPI & below Physical Exam Constitutional: WD/WN, vitals as above Respiratory: normal respiratory effort, lungs clear to auscultation Cardiovascular: RRR, no murmur, no edema Skin: no rashes, warm and dry Neurologic: moves all extremities and awake Psychiatric: Orientation: oriented x 3 Results & Data ([facility]) Vital Signs (Past 12 Hours) Vital Signs Pulse Resp BP Pulse Ox Pulse Ox 05/26/21 08:51 67 23 118/73 98 05/26/21 04:55 90 19 82/46 L 96 05/26/21 01:00 58 L 15 96/60 L 95 05/26/21 00:25 95 05/25/21 21:00 68 16 113/62 95
--- NOTE | 2021-05-26 09:02 | XRay Report ---
XR chest 1V portable CLINICAL HISTORY: follow up TECHNIQUE: Single frontal radiograph of the chest was obtained. Comparison: Comparison is made to chest 2 views 05/24/2021 FINDINGS: Stable median sternotomy wires including fractured first wire. Cardiomegaly is noted. The lungs are c lear. No evidence of pleural effusion or pneumothorax. IMPRESSION: No acute chest disease. ACT 112: Negative or not required by law. Electronically signed by: Russell Sifuentes M.D. 05/26/2021 9:01 AM
[2021-05-26 10:09] LABS: Magnesium 2.2 mg/dl (1.7-2.4)
[2021-05-26] MEDS ORDERED: NovoLIN-N (NPH) PER UNIT CHARGE SQ ONE (10:15)
[2021-05-26 11:01] LABS: Troponin I 41.63 ng/ml (0-0.04)
[2021-05-26] MEDS ORDERED: FAMOTIDINE 20 MG in SYRINGE 3 ML IV SCH (11:20)
[2021-05-26 12:01] LABS: EBV Virus Capsid Ag IgG Ab >750.00 U/mL
[2021-05-26] MEDS: ASPIRIN 81 MG ECTAB PO SCH ×2 (12:32→20:50)
[2021-05-26] MEDS: POLYETHYLENE (MIRALAX) 17 GM PACK PO SCH ×3 (12:32→22:52)
[2021-05-26] MEDS: MoRPHine SULFATE 2 MG/ML CARP IV PRN ×2 (12:45→21:29)
[2021-05-26] MEDS: ONDANSETRON INJ 2 MG/ML 2 ML VIAL IV PRN ×2 (12:46→21:29)
--- NOTE | 2021-05-26 12:54 | XRay Report ---
XR KUB/Abdomen 1 view CLINICAL HISTORY: constipation, hypoactive BS TECHNIQUE: 1 view of the abdomen was obtained. Comparison: Comparison is made to abdomen radiographs 10/26/2020 FINDINGS: Posterior fixation hardware is seen. A gastric lap band is again noted. The osseous structures are gr ossly unremarkable. The bowel gas pattern is nonobstructive. Large stool burden is seen without evide nce of inspissated stool in the rectum. IMPRESSION: There is a large stool burden without evidence of inspissated stool. ACT 112: Negative or not required by law. Electronically signed by: Russell Sifuentes M.D. 05/26/2021 12:53 PM
--- NOTE | 2021-05-26 13:10 | Electrocardiogram Report ---
Test Reason : Blood Pressure : / mmHG Vent. Rate : 064 BPM Atrial Rate : 064 BPM P-R Int : 160 ms QRS Dur : 082 ms QT Int : 454 ms P-R-T Axes : -02 008 079 degrees QTc Int : 468 ms Sinus rhythm with Premature supraventricular complexes Otherwise normal ECG When compared with ECG of 25-MAY-2021 12:10, Premature supraventricular complexes are now Present Confirmed by Cody Soto ([id number]) on 05/26/2021 1:10:27 PM Referred By: Ankit Ortega Confirmed By:Wyatt Soto
[2021-05-26] MEDS ORDERED: METOPROLOL SUCC 25MG EXT REL TAB PO ONE (13:45)
[2021-05-26] MEDS: DICLOFENAC SOD 1% GEL 100 GM TUBE EXT SCH ×3 (13:50→20:54)
--- NOTE | 2021-05-26 14:29 | Pharmacy Report ---
Pharmacy Glycemic Short Note 2 - Date of Service May 26, 2021 - Glycemic Short BSG Results (Last 24 hours): 05/25/21 05/25/21 05/26/21 17:56 21:12 05:56 Glucose 162 H POC Glucose 212 H 276 H 05/26/21 05/26/21 08:36 11:55 Glucose POC Glucose 140 H 274 H OUTPATIENT ANTIDIABETIC REGIMEN: * Lantus 20 units BID * Sliding scale, up to 20 units ACHS * NPH 1:1 while on prednisone ASSESSMENT: * 76 year old admitted with myocarditis, started on home basal, but NPH was not given with prednisone yesterday resulting in blood sugars of 2112 and 276mg/dl yesterday. Begin NPH today with prednisone, will give higher dose today, and re-evaluate tomorrow. 1 unit per 1 mg prednisone was not given last admission, he received lower doses of NPH then, but he had a tighter CF/CR at that time. * Blood sugar also high pre-lunch d/t nurse not covering carbs in breakfast, will also tighten CR. PLAN FOR INPATIENT GLYCEMIC CONTROL: * Basal insulin * Lantus 20 units SQ BID * NPH 40 units today with prednisone, further dosing of NPH to be determined tomorrow. * Bolus insulin * NovoLog per scale ACHS or Q6hrs while NPO * Goal Range: Low 110 mg/dL - High 140 mg/dL * Correction Factor: 20 mg/dL/unit * Nutritional / Prandial insulin per carb ratio of 1 unit per 5 grams CHO consumed PLAN FOR DISCHARGE: * to be determined
[2021-05-26] MEDS: CYANOCOBALAMIN 1000 MCG/ML VIAL IM SCH ×2 (19:01→19:52)
[2021-05-26] MEDS: ATORVASTATIN 40 MG TAB PO SCH (20:50)
[2021-05-26] MEDS: allopurinoL 100 MG TAB PO SCH (20:51)
[2021-05-26] MEDS: CALCIUM CARBONATE 1250MG TAB PO SCH (20:52)
[2021-05-26] MEDS: CHOLECALCIFEROL 1,000 UNITS 25 MCG TAB PO SCH (20:53)
[2021-05-26] MEDS: WARFARIN SOD 7.5 MG TAB PO SCH (20:55)
[2021-05-26] MEDS: PANTOprazole 40 MG TAB PO SCH (20:55)
[2021-05-27] MEDS: POLYETHYLENE (MIRALAX) 17 GM PACK PO SCH ×4 (04:30→21:04)
[2021-05-27 04:54] LABS: Hematocrit (blood only) 31.2 % (42-52); Hemoglobin 9.4 g/dL (14.0-18.0); Mean Corpuscular Hemoglobin 24.5 pg (25-34); Mean Corpuscular Hgb Conc 30.1 g/dL (32-36); Mean Corpuscular Volume 81.3 fL (80-100); Mean Platelet Volume 9.4 fL (7.4-10.4); Platelet Count 190 K/uL (130-400); RDW Coefficient of Variation 16.7 % (11.5-14.5); RDW Standard Deviation 50.1 fL (36.4-46.3); Red Blood Count 3.84 M/uL (4.7-6.1); White Blood Count 6.31 K/uL (4.8-10.8)
[2021-05-27 05:01] LABS: Prothrombin Time 27.8 Seconds (9.0-12.0)
[2021-05-27 05:37] LABS: Anion Gap 6 (3-11); BUN Creatinine Ratio 26.4 (10-20); Blood Urea Nitrogen 37 mg/dl (6-23); C Reactive Protein < 0.50 mg/dl (0-0.5); Calcium 8.7 mg/dl (8.5-10.1); Carbon Dioxide 25 mmol/L (21-32); Chloride 107 mmol/L (98-107); Chol HDL Ratio 3.2 (0-5); Cholesterol 145 mg/dl (0-200); Creatinine Clr Calc Pharmacy 56.7 ml/min; Est GFR (African American) 56.2 ml/min; Est GFR (Non-African American) 48.5 ml/min; Glucose 81 mg/dl (70-99(Fasting)); HDL Cholesterol 46 mg/dl; LDL Cholesterol Calculated 74 mg/dl; Potassium 3.9 mmol/L (3.5-5.1); Sodium 138 mmol/L (136-145); Triglycerides 123 mg/dl (0-150); VLDL Cholesterol 25 mg/dl (0-30)
[2021-05-27 05:39] LABS: Troponin I 39.99 ng/ml (0-0.04)
--- NOTE | 2021-05-27 07:32 | Hospitalist Progress Note ---
Date of Service May 27, 2021 Assessment & Plan (1) Myocarditis: Plan: Patient admitted with initial complaints of chest pain/shortness of breath -- chronic issues with shortness of breath/chronic steroid use with RA/polymyositis Hx CAD/stent to main LAD 2018 (after cath with complaints of syncope after getting radiation for his prostate ca) Trop elevated to 39.2 on admission ECHO * LV preserved with normal gradient across mechanical valve with mild paravalvu lar and valvular regurgitation. 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 Procal 0.48. BNP wnl --> ESR/CRP wnl on repeat this morning -->Improvement in chest pain per patient however did have some discomfort following Venofer --> continue ASA BID, colchicine BID for a month then continue daily given second recurrence. Topical Voltaren (uses at home as well) Also on PPI BID for GI Proph given increased risk of bleeding (see steroids as well) -- continue at d/c. 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 Could be related to autoimmune nonetheless * --> rec 40mg prednisone daily, decrease by 10mg weekly until seen. * Initially f/u appt 06/15, moved up to 06/06 * --> given continued chest discomfort/elevated trop, discussed with cardiology and they have placed patient on aspirin 81mg BID as well as protonix BID. Likely not able to tolerate any higher doses of the aspirin Got 3rd dose of Venofer/continued B12 supplementation for anemia. monitor CBC as well (has trended down/no s/sx bleeding) ESR 19, CRP <0.5 No further arrhythmias/Vtach overnight Trop still elevated and will continue to monitor Pain control/antiemetics prn/supportive care (2) Elevated troponin: Plan: elevated in setting of myocarditis -- see above monitor on tele (3) CAD (coronary atherosclerotic disease): Plan: follows with Dr Chau. 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 A cardiac catheterization in April 2019 noted a patent left main stent and mild diffuse disease within the LAD, LCx, and RCA ECHO 02/14/21 noted normal systolic function with ejection fraction 55-60% s/p cath as above, non-obs see tx #1 continue statin, asa (increased to BID under #1) Added metoprolol 12.5 mg daily for vtach -- no further ordered per cards as resting HR mid-high 50s, lower when sleeping --> TO ambulate in argueta per cards, if feeling well possible d/c tomorrow and f/u Shamika in office in 10-14 days (4) AZUL (dyspnea on exertion): Plan: - see above -Patient has history of interstitial lung dz, pulmonary function at baseline is poor. Also with PAULA s/p Venofer x 3 (300mg + 300mg + 200mg) --> fever/chills/cp following --> EKG repeated, trop unchanged No further dosing but patient looking better, states sob improved and remains on room air Prednisone --> was on 12mg as attempting to taper. --> Increased to 40mg and to taper by 10mg weekly until f/u rheumatology --> f/u appt jun [address] Buckley on room air 94% (5) Interstitial lung disease: Plan: Patient follows with rheumatology as well as with Pulmonary ---> Continue prednisone 5mg per day ---> Has been taking 12mg daily. changed as above. suspect would be able to decrease once iron stores repleted/cath for further investigation of able Prednisone and taper as above (6) Chronic anemia: Plan: chronic, macrocytic given shortness of breath/neuropathy, checked iron/B12 iron 26, normal TIBC. ferritin 27.4. Trans % sat 9 LOW --> iron deficiency anemia and given venofer x 1 05/25, 05/26, 05/27. no further B12 also low/normal --> IM while inpatient, PO at discharge hgb 9.7 from 9.2 previously yesterday but currently 9.4 --> on ASA BID, colchicine BID for #1 Protonix BID -- would continue this as well at discharge for GI proph. MOnitor mag, vielka given risk for arrhythmia (7) Diabetes: Plan: A1c 7.05 April 2021 NPH per pharmacy, on consult given prednisone and taper BSGs improved (8) HLD (hyperlipidemia): Plan: -continue Atorvastatin 40 (9) History of aortic valve replacement: Plan: - No acute needs - ECHO with myocarditis workup - Continue with his Coumadin 7.5 mg daily INR 3.0 (10) Diabetic peripheral neuropathy: Plan: Continue Gabapentin Also replacing vitamin B12 which may be contributing -- continue IM while inpatient, PO at discharge (11) Parkinsonism: Plan: Started trial Sinemet in June - He follows with Neurology Dr Sheikh - Continue Sinemet 25/100 (12) Seizure: Plan: Patient reports history of seizures- he has seen a headache specialist - Continue Keppra, Topiramate, Gabapentin - Seizure precautions -- no activity noted f/u outpatient for further eval epilepsy vs PNES (13) Non-ST elevation ID (NSTEMI): Plan: concerns for such on admission given elevated trop/hx CAD. Cath without obstructive disease ruled out (14) PAF (paroxysmal atrial fibrillation): Plan: on coumadin, also with mechanical AVR INR therapeutic (15) Constipation: Plan: --> reported had not moved bowels since last Sunday. KUB without obstructive pattern uses miralax Q6H at home with this and has been ordered Passing gas, active BS on exam. s/p mag citrate x 1. adding senna/docusate encouraged ambulation/limit opiates Plan: PT/OT eval for return home with services. Arranged via [employer] and they can start on Sunday. Private duty caregivers 3x/wk from 9a-1pm. Monitoring overnight, possible d/c over the weekend if feeling better/trop trending down/no further arrhythmias Needs follow up with Rheumatology (for RA/polymyositis)/[facility] at d/c (for his ILD) Admission and Anticipated Discharge Date Admission Date: May 24, 2021 Supervising Physician Co-Signing Physician Notes PA Supervision Note: I did not personally see or examine the patient today, but I verified all peña points of PETRA Gates's assessment and plan with the following exceptions/additions: None Subjective patient evaluated this morning chest pain improved with topical voltaren. got chills after Venofer this morning color improved compared to days past no Bm yet, passing gas not up with therapy yet but hopeful they come this afternoon will order mag citrate mild headache to back to neck -- states pillows uncomfortable. paraspinal tenderness. wanting to try lidocaine patch -- will order Review of Systems Review of Systems: All systems reviewed & are unremarkable except as noted in HPI & below Physical Exam Physical Exam: General: awake, alert, WN/WD but chronically ill appearing male, laying in hospital bed, no acute distress HEENT: normocephalic, eyes anicteric, pupils equal and reactive, mm slightly dry Chest: tender to palpation across precordium Resp: coarse breath sounds bilaterally, scattered crackles, no wheezing, on room air SpO2 94% CV: irregularly irregular, +systolic murmur with click, trace edema LLE, calves non-tender GI: +BS throughout, non-tender, no guarding ; no fay MSK/Neuro: moves all extremities, no focal deficit, CN intact bilaterally, +foot drop Psych: AOx3, pleasant and cooperative but anxious about going home too early Skin: scattered ecchymosis/skin thinning from chronic steroid use Results & Data Results & Data ([facility]) Vital Signs (Past 12 Hours) Vital Signs Temp Pulse Resp BP Pulse Ox Pulse Ox 05/27/21 03:05 36.5 C 62 14 112/64 96 05/27/21 00:00 96 05/26/21 23:15 36.4 C L 60 14 105/55 L 96 Laboratory Results 05/27/21 05/27/21 05/27/21 Range/Units 07:08 04:20 04:20 WBC (4.8-10.8) K/uL RBC (4.7-6.1) M/uL Hgb (14.0-18.0) g/dL Hct (42-52) % MCV (80-100) fL MCH (25-34) pg MCHC (32-36) g/dL RDW Std Deviation (36.4-46.3) fL RDW Coeff of Lianne (11.5-14.5) % Plt Count (130-400) K/uL MPV (7.4-10.4) fL ESR 19 (0-20) mm/hr PT (9.0-12.0) Seconds INR (0.9-1.1) Sodium 138 (136-145) mmol/L Potassium 3.9 (3.5-5.1) mmol/L Chloride 107 (98-107) mmol/L Carbon Dioxide 25 (21-32) mmol/L Anion Gap 6 (3-11) BUN 37 H (6-23) mg/dl Creatinine 1.40 (0.6-1.4) mg/dl Est Cr Clr Drug Dosing 56.7 ml/min Est GFR ( Amer) 56.2 ml/min Est GFR (Non-Af Amer) 48.5 ml/min BUN/Creatinine Ratio 26.4 H (10-20) Glucose 81 (70-99(Fasting)) mg/dl POC Glucose 88 (70-99) mg/dl Calcium 8.7 (8.5-10.1) mg/dl Magnesium (1.7-2.4) mg/dl Troponin I 39.99 H* (0-0.04) ng/ml C-Reactive Protein < 0.50 (0-0.5) mg/dl Triglycerides 123 (0-150) mg/dl Cholesterol 145 (0-200) mg/dl LDL Cholesterol, Calc 74 mg/dl VLDL Cholesterol, Calc 25 (0-30) mg/dl HDL Cholesterol 46 mg/dl Cholesterol/HDL Ratio 3.2 (0-5) Nasal Screen MRSA (PCR) (Negative) EBV Capsid Ag IgG Ab U/mL EBV Capsid Ag IgM Ab U/mL EBV Nuclear Antigen Ab U/mL EBV Antibody Interp 05/27/21 05/27/21 05/26/21 Range/Units 04:20 04:20 19:56 WBC 6.31 (4.8-10.8) K/uL RBC 3.84 L (4.7-6.1) M/uL Hgb 9.4 L (14.0-18.0) g/dL Hct 31.2 L (42-52) % MCV 81.3 (80-100) fL MCH 24.5 L (25-34) pg MCHC 30.1 L (32-36) g/dL RDW Std Deviation 50.1 H (36.4-46.3) fL RDW Coeff of Lianne 16.7 H (11.5-14.5) % Plt Count 190 (130-400) K/uL MPV 9.4 (7.4-10.4) fL ESR (0-20) mm/hr PT 27.8 H (9.0-12.0) Seconds INR 3.0 H (0.9-1.1) Sodium (136-145) mmol/L Potassium (3.5-5.1) mmol/L Chloride (98-107) mmol/L Carbon Dioxide (21-32) mmol/L Anion Gap (3-11) BUN (6-23) mg/dl Creatinine (0.6-1.4) mg/dl Est Cr Clr Drug Dosing ml/min Est GFR ( Amer) ml/min Est GFR (Non-Af Amer) ml/min BUN/Creatinine Ratio (10-20) Glucose (70-99(Fasting)) mg/dl POC Glucose 107 H (70-99) mg/dl Calcium (8.5-10.1) mg/dl Magnesium (1.7-2.4) mg/dl Troponin I (0-0.04) ng/ml C-Reactive Protein (0-0.5) mg/dl Triglycerides (0-150) mg/dl Cholesterol (0-200) mg/dl LDL Cholesterol, Calc mg/dl VLDL Cholesterol, Calc (0-30) mg/dl HDL Cholesterol mg/dl Cholesterol/HDL Ratio (0-5) Nasal Screen MRSA (PCR) (Negative) EBV Capsid Ag IgG Ab U/mL EBV Capsid Ag IgM Ab U/mL EBV Nuclear Antigen Ab U/mL EBV Antibody Interp 05/26/21 05/26/21 05/26/21 Range/Units 18:50 17:30 11:55 WBC (4.8-10.8) K/uL RBC (4.7-6.1) M/uL Hgb (14.0-18.0) g/dL Hct (42-52) % MCV (80-100) fL MCH (25-34) pg MCHC (32-36) g/dL RDW Std Deviation (36.4-46.3) fL RDW Coeff of Lianne (11.5-14.5) % Plt Count (130-400) K/uL MPV (7.4-10.4) fL ESR (0-20) mm/hr PT (9.0-12.0) Seconds INR (0.9-1.1) Sodium (136-145) mmol/L Potassium (3.5-5.1) mmol/L Chloride (98-107) mmol/L Carbon Dioxide (21-32) mmol/L Anion Gap (3-11) BUN (6-23) mg/dl Creatinine (0.6-1.4) mg/dl Est Cr Clr Drug Dosing ml/min Est GFR ( Amer) ml/min Est GFR (Non-Af Amer) ml/min BUN/Creatinine Ratio (10-20) Glucose (70-99(Fasting)) mg/dl POC Glucose 111 H 274 H (70-99) mg/dl Calcium (8.5-10.1) mg/dl Magnesium (1.7-2.4) mg/dl Troponin I (0-0.04) ng/ml C-Reactive Protein (0-0.5) mg/dl Triglycerides (0-150) mg/dl Cholesterol (0-200) mg/dl LDL Cholesterol, Calc mg/dl VLDL Cholesterol, Calc (0-30) mg/dl HDL Cholesterol mg/dl Cholesterol/HDL Ratio (0-5) Nasal Screen MRSA (PCR) Negative (Negative) EBV Capsid Ag IgG Ab U/mL EBV Capsid Ag IgM Ab U/mL EBV Nuclear Antigen Ab U/mL EBV Antibody Interp 05/26/21 05/26/21 05/24/21 Range/Units 08:36 05:56 21:41 WBC (4.8-10.8) K/uL RBC (4.7-6.1) M/uL Hgb (14.0-18.0) g/dL Hct (42-52) % MCV (80-100) fL MCH (25-34) pg MCHC (32-36) g/dL RDW Std Deviation (36.4-46.3) fL RDW Coeff of Lianne (11.5-14.5) % Plt Count (130-400) K/uL MPV (7.4-10.4) fL ESR (0-20) mm/hr PT (9.0-12.0) Seconds INR (0.9-1.1) Sodium (136-145) mmol/L Potassium (3.5-5.1) mmol/L Chloride (98-107) mmol/L Carbon Dioxide (21-32) mmol/L Anion Gap (3-11) BUN (6-23) mg/dl Creatinine (0.6-1.4) mg/dl Est Cr Clr Drug Dosing ml/min Est GFR ( Amer) ml/min Est GFR (Non-Af Amer) ml/min BUN/Creatinine Ratio (10-20) Glucose (70-99(Fasting)) mg/dl POC Glucose 140 H (70-99) mg/dl Calcium (8.5-10.1) mg/dl Magnesium 2.2 (1.7-2.4) mg/dl Troponin I 41.63 H* (0-0.04) ng/ml C-Reactive Protein (0-0.5) mg/dl Triglycerides (0-150) mg/dl Cholesterol (0-200) mg/dl LDL Cholesterol, Calc mg/dl VLDL Cholesterol, Calc (0-30) mg/dl HDL Cholesterol mg/dl Cholesterol/HDL Ratio (0-5) Nasal Screen MRSA (PCR) (Negative) EBV Capsid Ag IgG Ab >750.00 H U/mL EBV Capsid Ag IgM Ab <36.00 U/mL EBV Nuclear Antigen Ab 193.00 H U/mL EBV Antibody Interp SEE NOTE PG Care Time/CCT Total # of Minutes Spent Total Time Spent with Patient: Total time spent is greater than 50% in coordination of care (as documented) at patient's floor/unit and/or counseling patient: Coding Level of Care Code 60431 Subseq Hosp Care Lvl 3 Diagnoses Myocarditis I51.4 Elevated troponin R77.8 CAD (coronary atherosclerotic disease) I25.10 AZUL (dyspnea on exertion) R06.00 Interstitial lung disease J84.9 Chronic anemia D64.9 Diabetes E11.42; Z79.4 Diabetes mellitus complication detail: with polyneuropathy Diabetes mellitus complication status: with neurologic complications Diabetes mellitus detention insulin use: with detention use Diabetes mellitus type: type 2 HLD (hyperlipidemia) E78.2 Hyperlipidemia type: mixed hyperlipidemia History of aortic valve replacement Z95.2 Diabetic peripheral neuropathy E11.42 Parkinsonism G20 Parkinsonism type: unspecified Seizure R56.9 Non-ST elevation ID (NSTEMI) I21.4 PAF (paroxysmal atrial fibrillation) I48.0 Constipation K59.00 (1) Diabetes Diabetes mellitus complication detail: with polyneuropathy Diabetes mellitus complication status: with neurologic complications Diabetes mellitus detention insulin use: with detention use Diabetes mellitus type: type 2 Qualified Code(s): E11.42 - Type 2 diabetes mellitus with diabetic polyneuropathy; Z79.4 - custodial (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
[2021-05-27] MEDS ORDERED: IRON SUCROSE 200 MG in 0.9 % SODIUM CHLORIDE 100 ML IV ONE (09:00)
--- NOTE | 2021-05-27 09:44 | Cardiology Progress Note ---
Date of Service May 27, 2021 Assessment & Plan Admission and Anticipated Discharge Date Admission Date: May 24, 2021 Subjective He looks better this morning. His chest discomfort has improved. He has no shortness of breath. He denies any lightheadedness or dizziness. He looks significantly better. He has some mild nausea. He notes yesterday around 3 PM eating quite feel well and thought he may have had an arrhythmia. Looking at the athletic monitor there were no significant arrhythmias. He is complaining constipation. His appetite is improved. He denies any fevers or chills or sweats. Results & Data ([facility]) Vital Signs (Past 12 Hours) Vital Signs Temp Pulse Pulse Resp BP Pulse Ox Pulse Ox 05/27/21 07:00 36.3 C L 57 L 16 117/63 92 05/27/21 03:05 36.5 C 62 14 112/64 96 05/27/21 00:00 96 05/26/21 23:15 36.4 C L 60 14 105/55 L 96 He is awake alert and oriented x3. He looks significantly better compared to when I saw him in the emergency room HEENT: 2+ carotid upstrokes no evidence of carotid bruits Lungs: Coarse breath sounds bilaterally no rhonchi or wheezing Heart: IRegular rate and rhythm he has a crisp click of his mechanical aortic valve replacement there were no appreciable diastolic murmurs Abdomen: Soft nontender distended positive bowel sounds Extremities: No clubbing cyanosis. He has no edema of the right leg he has trace edema of the left leg Psychiatric his affect appeared appropriate I reviewed all of his diagnostic data. His EKG reveals no ischemic changes. His chest x-ray is consistent with interstitial lung disease. I reviewed his athletic monitor today. There were no further sustained or nonsustained ventricular arrhythmias with just isolated PVCs IMPRESSIONS: 1. Markedly elevated troponin secondary to myocarditis with a catheterization this admission without evidence of progression of his coronary disease or plaque rupture 2. History of mechanical aortic valve placed in 2003 at the time of an aortic dissection with repair of his a sending aorta 3. History of a left main stent in February 2019 4. 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 Multiple TIAs 6. Chronic anticoagulation with a goal INR of 2-1/2-3-1/2 with 81 mg of aspirin given his mechanical aortic valve and chronic atrial fibrillation 7. Chronic A. fib rate controlled 8. 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 Parkinson's disease 10. Diabetes mellitus type 2 11. Echocardiogram this admission with low normal left ventricular systolic function and EF in the range of 50 to 55% without discrete wall motion abnormalities He has had no further episodes of nonsustained VT since 2:00 in the morning 36 hours ago. He is currently unaware of any palpitations this morning. In discussion with rheumatology he has been placed on high-dose steroids as his myocarditis is likely related to his autoimmune disease. His viral cultures at this point are all negative and he did not have a symptoms of a URI prior to admission. For now his INR should be 2-1/2-3-1/2. I would continue colchicine 0.6 mg twice daily for at least a month and then reduce it to 0.6 mg daily. Given this is the second episode of myocarditis that he has had I would recommend remaining on colchicine indefinitely. Depending on how he is feeling we can reduce his aspirin as an outpatient. His steroids are planning to be weaned as an outpatient as well. There is really no room to give him beta-blockers to reduce his risk of ventricular arrhythmias associated with myocarditis His his resting heart rate is in the mid to high 50s. With sleep it is even lower. This limits our ability to give him even 2-1/2 mg of Toprol. I would ambulate him in the hallway. If he is feeling well he could potentially be discharged tomorrow. He will need to follow-up with Shamika in our office in 10 to 14 days.
[2021-05-27] MEDS: UMECLIDINIUM/VILANTEROL 62.5/25MCG 7 PUFFS/INHALER INH SCH (09:53)
[2021-05-27] MEDS: FLUTICASONE FUROATE 100MCG 14 PUFFS/INHALER INH SCH (09:54)
[2021-05-27] MEDS: CARBIDOPA/LEVODOPA 25/100MG TAB PO SCH ×3 (09:55→20:45)
[2021-05-27] MEDS: levETIRAcetam 500 MG TAB PO SCH ×2 (09:55→20:42)
[2021-05-27] MEDS: FUROSEMIDE 20 MG TAB PO SCH (09:56)
[2021-05-27] MEDS: FINASTERIDE 5 MG TAB PO SCH (09:56)
[2021-05-27] MEDS: POTASSIUM CHLORIDE 10 MEQ TABCR PO SCH (09:56)
[2021-05-27] MEDS: GABAPENTIN 300 MG CAP PO SCH ×2 (09:56→20:43)
[2021-05-27] MEDS: FEXOFENADINE HCL 180 MG TAB PO SCH (09:56)
[2021-05-27] MEDS: TOPIRAMATE 100 MG TAB PO SCH ×2 (09:57→20:48)
[2021-05-27] MEDS: PANTOprazole 40 MG TAB PO SCH ×2 (09:57→20:46)
[2021-05-27] MEDS: SENNA 8.6 MG TAB PO SCH (09:57)
[2021-05-27] MEDS: COLCHICINE 0.6 MG TAB PO SCH ×2 (09:57→20:46)
[2021-05-27] MEDS: ASPIRIN 81 MG ECTAB PO SCH ×2 (09:59→20:40)
[2021-05-27] MEDS: predniSONE 20 MG TAB PO SCH (10:00)
[2021-05-27] MEDS: INSULIN ASPART PER UNIT SC SCH ×4 (10:01→20:59)
[2021-05-27] MEDS: DICLOFENAC SOD 1% GEL 100 GM TUBE EXT SCH ×4 (10:01→20:44)
[2021-05-27] MEDS: INSULIN GLARGINE SOLOSTAR 100 UNITS/ML 3 ML PEN SQ SCH ×2 (10:02→20:42)
[2021-05-27] MEDS: INSULIN HUMAN NPH SC SCH (10:02)
[2021-05-27] MEDS: CYANOCOBALAMIN 1000 MCG/ML VIAL IM SCH (10:03)
[2021-05-27] MEDS ORDERED: MAGNESIUM CITRATE 296 ML/BTL PO STA (11:46)
[2021-05-27] MEDS: LIDOCAINE 5% 1 PATCH TD SCH (12:39)
--- NOTE | 2021-05-27 13:32 | Pharmacy Report ---
Pharmacy Glycemic Short Note 2 - Date of Service May 27, 2021 - Glycemic Short BSG Results (Last 24 hours): 05/26/21 05/26/21 05/27/21 17:30 19:56 04:20 Glucose 81 POC Glucose 111 H 107 H 05/27/21 05/27/21 07:08 11:12 Glucose POC Glucose 88 154 H OUTPATIENT ANTIDIABETIC REGIMEN: * Lantus 20 units BID * Sliding scale, up to 20 units ACHS * NPH 1:1 while on prednisone ASSESSMENT: 05/27: * Fasting BSG trending down today. Will reduce Lantus dose and NPH dose. Post prandial lunch BSG well controlled today. Patient continues on prednisone and is tolerating a diet. 05/26 * 76 year old admitted with myocarditis, started on home basal, but NPH was not given with prednisone yesterday resulting in blood sugars of 2112 and 276mg/dl yesterday. Begin NPH today with prednisone, will give higher dose today, and re-evaluate tomorrow. 1 unit per 1 mg prednisone was not given last admission, he received lower doses of NPH then, but he had a tighter CF/CR at that time. * Blood sugar also high pre-lunch d/t nurse not covering carbs in breakfast, will also tighten CR. PLAN FOR INPATIENT GLYCEMIC CONTROL: * Basal insulin * Lantus 10/20 units SQ BID (See MAR for details) * NPH 20 units qam with prednisone * Bolus insulin * NovoLog per scale ACHS or Q6hrs while NPO * Goal Range: Low 110 mg/dL - High 140 mg/dL * Correction Factor: 20 mg/dL/unit * Nutritional / Prandial insulin per carb ratio of 1 unit per 5 grams CHO consumed PLAN FOR DISCHARGE: * to be determined
--- NOTE | 2021-05-27 14:11 | Electrocardiogram Report ---
Test Reason : Blood Pressure : / mmHG Vent. Rate : 057 BPM Atrial Rate : 057 BPM P-R Int : 134 ms QRS Dur : 080 ms QT Int : 456 ms P-R-T Axes : 011 016 091 degrees QTc Int : 443 ms Sinus bradycardia with sinus arrhythmia Abnormal ECG When compared with ECG of 22-MAR-2020 19:13, Premature atrial complexes are no longer Present Confirmed by Cody Soto ([id number] on 05/27/2021 2:11:41 PM Referred By: Ankit Ortega Confirmed By:Wyatt Soto
[2021-05-27] MEDS: DOCUSATE SODIUM/SENNA 50/8.6MG TAB PO SCH (18:35)
[2021-05-27] MEDS ORDERED: SOD PHOSPHATE/SOD BIPHOSPHATE ENEMA 132 ML BTL PR STA (18:51)
[2021-05-27] MEDS: allopurinoL 100 MG TAB PO SCH (20:39)
[2021-05-27] MEDS: CALCIUM CARBONATE 1250MG TAB PO SCH (20:41)
[2021-05-27] MEDS: ATORVASTATIN 40 MG TAB PO SCH (20:42)
[2021-05-27] MEDS: CHOLECALCIFEROL 1,000 UNITS 25 MCG TAB PO SCH (20:44)
[2021-05-27] MEDS: WARFARIN SOD 7.5 MG TAB PO SCH (20:46)
[2021-05-28 05:19] LABS: Hematocrit (blood only) 30.9 % (42-52); Hemoglobin 9.2 g/dL (14.0-18.0); Mean Corpuscular Hemoglobin 24.1 pg (25-34); Mean Corpuscular Hgb Conc 29.8 g/dL (32-36); Mean Corpuscular Volume 81.1 fL (80-100); Mean Platelet Volume 9.5 fL (7.4-10.4); Platelet Count 203 K/uL (130-400); RDW Coefficient of Variation 16.8 % (11.5-14.5); RDW Standard Deviation 49.9 fL (36.4-46.3); Red Blood Count 3.81 M/uL (4.7-6.1); White Blood Count 5.95 K/uL (4.8-10.8)
[2021-05-28 05:26] LABS: INR 3.2 (0.9-1.1)
[2021-05-28 05:47] LABS: Troponin I 42.01 ng/ml (0-0.04)
[2021-05-28 05:52] LABS: BUN Creatinine Ratio 31.4 (10-20); Calcium 8.3 mg/dl (8.5-10.1); Creatinine Clr Calc Pharmacy 65.6 ml/min; Est GFR (Non-African American) 57.8 ml/min; Magnesium 2.4 mg/dl (1.7-2.4)
[2021-05-28] MEDS: POLYETHYLENE (MIRALAX) 17 GM PACK PO SCH (06:47)
--- NOTE | 2021-05-28 07:43 | Hospitalist Progress Note ---
Date of Service May 28, 2021 Assessment & Plan (1) Myocarditis: Plan: Patient admitted with initial complaints of chest pain/shortness of breath -- chronic issues with shortness of breath/chronic steroid use with RA/polymyositis Hx CAD/stent to main LAD 2018 (after cath with complaints of syncope after getting radiation for his prostate ca) Trop elevated to 39.2 on admission ECHO * LV preserved with normal gradient across mechanical valve with mild paravalvu lar and valvular regurgitation. 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 Procal 0.48. BNP wnl --> ESR/CRP wnl on repeat this morning -->Improvement in chest pain per patient however did have some discomfort following Venofer --> continue ASA BID, colchicine BID for a month then continue daily given second recurrence. Topical Voltaren (uses at home as well) Also on PPI BID for GI Proph given increased risk of bleeding (see steroids as well) -- continue at d/c. Monitor mag Discussed w/ patients email engineer, who also notes complicated history/prior neg rheum factor but positive CCP/aldolase/etc. Could be related to autoimmune nonetheless * --> rec 40mg prednisone daily, decrease by 10mg weekly until seen. * Initially f/u appt 06/15, moved up to 06/06 * --> given continued chest discomfort/elevated trop, discussed with cardiology and they have placed patient on aspirin 81mg BID as well as protonix BID. Likely not able to tolerate any higher doses of the aspirin Got 3rd dose of Venofer/continued B12 supplementation for anemia. monitor CBC as well (has trended down/no s/sx bleeding) ESR 19, CRP <0.5 No further arrhythmias/Vtach overnight Trop still elevated and will continue to monitor Pain control/antiemetics prn/supportive care 05/28 --> Trop remains elevated. Discussed with cards and continuing course. Did reach out to rheum given risk w steroids, will attempt decreased dose to 30mg in AM High risk for bleeding -- got Venofer x 3, hgb further dropped but stable. Continues B12 supplementation Reported BRBPR for loose BM but hadn't moved bowels since last week, could be some hemorrhoidal bleeding --> Obv would not want to hold off on ASA/Colchicine given myocarditis requiring treatment No further arrhythmias overnight pain/nausea control Continued monitoring (2) Elevated troponin: Plan: elevated in setting of myocarditis -- see above monitor on tele -- no further arrhythmia (3) CAD (coronary atherosclerotic disease): Plan: follows with Dr Chau. 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 A cardiac catheterization in April 2019 noted a patent left main stent and mild diffuse disease within the LAD, LCx, and RCA ECHO 02/14/21 noted normal systolic function with ejection fraction 55-60% s/p cath as above, non-obs see tx #1 continue statin, asa (increased to BID under #1) Added metoprolol 12.5 mg daily for vtach -- no further ordered per cards as resting HR mid-high 50s, lower when sleeping and BPs lower --> TO ambulate in argueta per cards, if feeling well possible d/c tomorrow and f/u Shamika in office in 10-14 days but would suspect will be inpatient through weekend (4) AZUL (dyspnea on exertion): Plan: - see above -Patient has history of interstitial lung dz, pulmonary function at baseline is poor. Also with PAULA s/p Venofer x 3 (300mg + 300mg + 200mg) --> fever/chills/cp following venofer --> EKG repeated, trop unchanged No further dosing but patient looking better, states sob improved and remains on room air Prednisone --> was on 12mg as attempting to taper. --> Increased to 40mg and to taper by 10mg weekly until f/u rheumatology --> DECREASED TO 30MG DAILY starting tomorrow --> f/u appt jun [address] Buckley on room air 95% (5) Interstitial lung disease: Plan: Patient follows with rheumatology as well as with Pulmonary ---> Continue prednisone 5mg per day ---> Had been taking 12mg daily. changed as above. Prednisone and taper as above (6) Chronic anemia: Plan: chronic, macrocytic given shortness of breath/neuropathy, checked iron/B12 iron 26, normal TIBC. ferritin 27.4. Trans % sat 9 LOW --> iron deficiency anemia and given venofer x 1 05/25, 05/26, 05/27. no further B12 also low/normal --> IM while inpatient, PO at discharge hgb 9.7--> 9.4--> 9.2 --> on ASA BID, colchicine BID for #1 Protonix BID -- would continue this as well at discharge for GI proph. MOnitor mag, vielka given risk for arrhythmia fecal occult for reported possible blood in stool monitor CBC (7) Diabetes: Plan: A1c 7.05 April 2021 NPH per pharmacy, on consult given prednisone and taper BSGs improved (8) HLD (hyperlipidemia): Plan: -continue Atorvastatin 40 (9) History of aortic valve replacement: Plan: - No acute needs - ECHO with myocarditis workup - Continue with his Coumadin 7.5 mg daily INR 3.2 (10) Diabetic peripheral neuropathy: Plan: Continue Gabapentin Also replacing vitamin B12 which may be contributing -- continue IM while inpatient, PO at discharge (11) Parkinsonism: Plan: Started trial Sinemet in June - He follows with Neurology Dr Sheikh - Continue Sinemet (12) Seizure: Plan: Patient reports history of seizures- he has seen a headache specialist - Continue Keppra, Topiramate, Gabapentin - Seizure precautions -- no activity noted f/u outpatient for further eval epilepsy vs PNES (13) Non-ST elevation VA (NSTEMI): Plan: concerns for such on admission given elevated trop/hx CAD. Cath without obstructive disease ruled out (14) PAF (paroxysmal atrial fibrillation): Plan: on coumadin, also with mechanical AVR INR therapeutic (15) Constipation: Plan: --> reported had not moved bowels since last Sunday. KUB without obstructive pattern uses miralax Q6H at home with this and has been ordered Passing gas, active BS on exam. s/p mag citrate x 1. adding senna/docusate encouraged ambulation/limit opiates 05/28--> multiple BM, loose not diarrhea. OK to hold further miralax for now Plan: PT/OT eval for return home with services. Arranged via [facility] and they can start on Sunday. Private duty caregivers 3x/wk from 9a-1pm. Monitoring overnight, possible d/c over the weekend if feeling better/trop trending down/no further arrhythmias Needs follow up with Rheumatology (for RA/polymyositis)/[facility] at d/c (for his ILD) Admission and Anticipated Discharge Date Admission Date: May 24, 2021 Subjective patient eval this morning. BM x 2, loose does note some dark/bright red blood on tissue/bowel. denies hx of hemorrhoids but admits did not move BM since sunday. holding off further miralax states CP was doing well all yesterday afternoon but increased sharpness today. same distribution to the L side of the chest, tender to palpation as well currently getting dose morphine/zofran. has some lightheaded/dizziness and mild headache. eating no issue but states has not been drinking much breathing stable, not coughing up anything at present, decreased prednisone to 30mg in am per rhem will have rn check orthostatics as well as fecal occult. discussed on multiple agents that can cause bleeding but on ASA/colchicine for the myocarditis and will be a delecate balance again with concerns about d/c and not having anyone home as son who stays w him taking care of his own children/sick . Discussed continued monitoring Review of Systems Review of Systems: All systems reviewed & are unremarkable except as noted in HPI & below Physical Exam Physical Exam: General: awake, alert, WN/WD but chronically ill appearing male, laying in hospital bed, no acute distress HEENT: normocephalic, eyes anicteric, pupils equal and reactive, mm slightly dry Chest: tender to palpation across precordium (same as day prior) Resp: coarse breath sounds bilaterally, faint scattered crackles, no wheezing, on room air CV: irregularly irregular, +systolic murmur with click, trace edema LLE, calves non-tender GI: +BS throughout, non-tender, no guarding ; no fay MSK/Neuro: moves all extremities, no focal deficit, CN intact bilaterally, +foot drop Psych: AOx3, pleasant and cooperative but anxious about going home too early Skin: scattered ecchymosis/skin thinning from chronic steroid use Results & Data Results & Data ([facility]) Vital Signs (Past 12 Hours) Vital Signs Temp Pulse Resp BP Pulse Ox 05/28/21 03:39 36.2 C L 58 L 13 96/64 L 97 05/27/21 23:59 65 05/27/21 22:51 69 17 104/52 L 97 Laboratory Results 05/28/21 05/28/2122 Range/Units 04:35 04:35 04:35 WBC 5.95 (4.8-10.8) K/uL RBC 3.81 L (4.7-6.1) M/uL Hgb 9.2 L (14.0-18.0) g/dL Hct 30.9 L (42-52) % MCV 81.1 (80-100) fL MCH 24.1 L (25-34) pg MCHC 29.8 L (32-36) g/dL RDW Std Deviation 49.9 H (36.4-46.3) fL RDW Coeff of Lianne 16.8 H (11.5-14.5) % Plt Count 203 (130-400) K/uL MPV 9.5 (7.4-10.4) fL PT 30.0 H (9.0-12.0) Seconds INR 3.2 H (0.9-1.1) Sodium 138 (136-145) mmol/L Potassium 4.0 (3.5-5.1) mmol/L Chloride 109 H (98-107) mmol/L Carbon Dioxide 23 (21-32) mmol/L Anion Gap 6 (3-11) BUN 38 H (6-23) mg/dl Creatinine 1.21 (0.6-1.4) mg/dl Est Cr Clr Drug Dosing 65.6 ml/min Est GFR ( Amer) 67.0 ml/min Est GFR (Non-Af Amer) 57.8 ml/min BUN/Creatinine Ratio 31.4 H (10-20) Glucose 117 H (70-99(Fasting)) mg/dl POC Glucose (70-99) mg/dl Calcium 8.3 L (8.5-10.1) mg/dl Magnesium 2.4 (1.7-2.4) mg/dl Troponin I 42.01 H* (0-0.04) ng/ml 05/27/21 05/27/21 05/27/21 Range/Units 19:54 16:00 11:23 WBC (4.8-10.8) K/uL RBC (4.7-6.1) M/uL Hgb (14.0-18.0) g/dL Hct (42-52) % MCV (80-100) fL MCH (25-34) pg MCHC (32-36) g/dL RDW Std Deviation (36.4-46.3) fL RDW Coeff of Lianne (11.5-14.5) % Plt Count (130-400) K/uL MPV (7.4-10.4) fL PT (9.0-12.0) Seconds INR (0.9-1.1) Sodium (136-145) mmol/L Potassium (3.5-5.1) mmol/L Chloride (98-107) mmol/L Carbon Dioxide (21-32) mmol/L Anion Gap (3-11) BUN (6-23) mg/dl Creatinine (0.6-1.4) mg/dl Est Cr Clr Drug Dosing ml/min Est GFR ( Amer) ml/min Est GFR (Non-Af Amer) ml/min BUN/Creatinine Ratio (10-20) Glucose (70-99(Fasting)) mg/dl POC Glucose 201 H 148 H (70-99) mg/dl Calcium (8.5-10.1) mg/dl Magnesium 2.0 (1.7-2.4) mg/dl Troponin I (0-0.04) ng/ml 05/27/21 05/27/21 Range/Units 11:23 11:12 WBC (4.8-10.8) K/uL RBC (4.7-6.1) M/uL Hgb (14.0-18.0) g/dL Hct (42-52) % MCV (80-100) fL MCH (25-34) pg MCHC (32-36) g/dL RDW Std Deviation (36.4-46.3) fL RDW Coeff of Lianne (11.5-14.5) % Plt Count (130-400) K/uL MPV (7.4-10.4) fL PT (9.0-12.0) Seconds INR (0.9-1.1) Sodium (136-145) mmol/L Potassium (3.5-5.1) mmol/L Chloride (98-107) mmol/L Carbon Dioxide (21-32) mmol/L Anion Gap (3-11) BUN (6-23) mg/dl Creatinine (0.6-1.4) mg/dl Est Cr Clr Drug Dosing ml/min Est GFR ( Amer) ml/min Est GFR (Non-Af Amer) ml/min BUN/Creatinine Ratio (10-20) Glucose (70-99(Fasting)) mg/dl POC Glucose 154 H (70-99) mg/dl Calcium (8.5-10.1) mg/dl Magnesium (1.7-2.4) mg/dl Troponin I 39.82 H* (0-0.04) ng/ml PG Care Time/CCT Total # of Minutes Spent Total Time Spent with Patient: Total time spent is greater than 50% in coordination of care (as documented) at patient's floor/unit and/or counseling patient: Coding Level of Care Code 56780 Subseq Hosp Care Lvl 2 Diagnoses Myocarditis I51.4 Elevated troponin R77.8 CAD (coronary atherosclerotic disease) I25.10 AZUL (dyspnea on exertion) R06.00 Interstitial lung disease J84.9 Chronic anemia D64.9 Diabetes E11.42; Z79.4 Diabetes mellitus type: type 2 Diabetes mellitus medical terminologist insulin use: with usp use Diabetes mellitus complication status: with neurologic complications Diabetes mellitus complication detail: with polyneuropathy HLD (hyperlipidemia) E78.2 Hyperlipidemia type: mixed hyperlipidemia History of aortic valve replacement Z95.2 Diabetic peripheral neuropathy E11.42 Parkinsonism G20 Parkinsonism type: unspecified Seizure R56.9 Non-ST elevation VA (NSTEMI) I21.4 PAF (paroxysmal atrial fibrillation) I48.0 Constipation K59.00 (1) Diabetes Diabetes mellitus type: type 2 Diabetes mellitus usp insulin use: with usp use Diabetes mellitus complication status: with neurologic complications Diabetes mellitus complication detail: with polyneuropathy Qualified Code(s): E11.42 - Type 2 diabetes mellitus with diabetic polyneuropathy; 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
[2021-05-28] MEDS: INSULIN ASPART PER UNIT SC SCH ×4 (08:14→20:45)
[2021-05-28] MEDS: FLUTICASONE FUROATE 100MCG 14 PUFFS/INHALER INH SCH (08:15)
[2021-05-28] MEDS: UMECLIDINIUM/VILANTEROL 62.5/25MCG 7 PUFFS/INHALER INH SCH (08:15)
[2021-05-28] MEDS: DICLOFENAC SOD 1% GEL 100 GM TUBE EXT SCH ×4 (08:19→20:37)
[2021-05-28] MEDS: CYANOCOBALAMIN 1000 MCG/ML VIAL IM SCH (08:20)
[2021-05-28] MEDS: INSULIN HUMAN NPH SC SCH (08:22)
[2021-05-28] MEDS: INSULIN GLARGINE SOLOSTAR 100 UNITS/ML 3 ML PEN SQ SCH ×2 (08:22→20:41)
[2021-05-28] MEDS: SENNA 8.6 MG TAB PO SCH (08:23)
[2021-05-28] MEDS: ASPIRIN 81 MG ECTAB PO SCH ×2 (08:23→20:41)
[2021-05-28] MEDS: PANTOprazole 40 MG TAB PO SCH ×2 (08:23→20:40)
[2021-05-28] MEDS: LIDOCAINE 5% 1 PATCH TD SCH (08:23)
[2021-05-28] MEDS: DOCUSATE SODIUM/SENNA 50/8.6MG TAB PO SCH (08:23)
[2021-05-28] MEDS: CARBIDOPA/LEVODOPA 25/100MG TAB PO SCH ×3 (08:24→20:38)
[2021-05-28] MEDS: FEXOFENADINE HCL 180 MG TAB PO SCH (08:24)
[2021-05-28] MEDS: FINASTERIDE 5 MG TAB PO SCH (08:24)
[2021-05-28] MEDS: TOPIRAMATE 100 MG TAB PO SCH ×2 (08:24→20:38)
[2021-05-28] MEDS: GABAPENTIN 300 MG CAP PO SCH ×2 (08:25→20:40)
[2021-05-28] MEDS: predniSONE 20 MG TAB PO SCH (08:25)
[2021-05-28] MEDS: levETIRAcetam 500 MG TAB PO SCH ×2 (08:26→20:40)
[2021-05-28] MEDS: COLCHICINE 0.6 MG TAB PO SCH ×2 (08:26→20:39)
[2021-05-28] MEDS: POTASSIUM CHLORIDE 10 MEQ TABCR PO SCH (08:27)
[2021-05-28] MEDS: MoRPHine SULFATE 2 MG/ML CARP IV PRN ×2 (10:08→20:58)
[2021-05-28] MEDS: ONDANSETRON INJ 2 MG/ML 2 ML VIAL IV PRN ×2 (10:11→20:58)
[2021-05-28] MEDS: WARFARIN SOD 7.5 MG TAB PO SCH (20:38)
[2021-05-28] MEDS: ATORVASTATIN 40 MG TAB PO SCH (20:38)
[2021-05-28] MEDS: allopurinoL 100 MG TAB PO SCH (20:38)
[2021-05-28] MEDS: CHOLECALCIFEROL 1,000 UNITS 25 MCG TAB PO SCH (20:39)
[2021-05-28] MEDS: CALCIUM CARBONATE 1250MG TAB PO SCH (20:41)
[2021-05-29 05:47] LABS: Basophils # (auto) 0.02 K/uL (0-0.2); Basophils % (auto) 0.3 %; Eosinophils # (auto) 0.12 K/uL (0-0.5); Hemoglobin 9.2 g/dL (14.0-18.0); Immature Granulocytes # (auto) 0.28 K/uL (0.00-0.02); Immature Granulocytes % (auto) 4.7 %; Lymphocytes # (auto) 0.92 K/uL (1.2-3.4); Lymphocytes % (auto) 15.3 %; Mean Corpuscular Hemoglobin 24.6 pg (25-34); Mean Corpuscular Hgb Conc 29.7 g/dL (32-36); Mean Corpuscular Volume 82.9 fL (80-100); Mean Platelet Volume 9.2 fL (7.4-10.4); Monocytes # (auto) 0.44 K/uL (0.11-0.59); Monocytes % (auto) 7.3 %; Neutrophils # (auto) 4.23 K/uL (1.4-6.5); Neutrophils % (auto) 70.4 %; Platelet Count 187 K/uL (130-400); RDW Standard Deviation 51.3 fL (36.4-46.3); Red Blood Count 3.74 M/uL (4.7-6.1); White Blood Count 6.01 K/uL (4.8-10.8)
[2021-05-29 06:21] LABS: Albumin Globulin Ratio 1.6 (0.9-2); Albumin Level 3.2 gm/dl (3.4-5.0); BUN Creatinine Ratio 27.3 (10-20); Bilirubin,Total 0.4 mg/dl (0.2-1.0); Calcium 8.2 mg/dl (8.5-10.1); Creatinine Clr Calc Pharmacy 59.7 ml/min; Est GFR (African American) 60.3 ml/min; Magnesium 2.4 mg/dl (1.7-2.4); Potassium 4.1 mmol/L (3.5-5.1); Total Protein 5.2 gm/dl (6.0-8.3)
[2021-05-29 06:36] LABS: Troponin I 39.15 ng/ml (0-0.04)
[2021-05-29] MEDS ORDERED: ACETAMINOPHEN 325 MG TAB PO PRN (07:48)
--- NOTE | 2021-05-29 07:51 | Hospitalist Progress Note ---
Date of Service May 29, 2021 Assessment & Plan Admission and Anticipated Discharge Date Admission Date: May 24, 2021 Results & Data Results & Data ([facility]) Vital Signs (Past 12 Hours) Vital Signs Temp Pulse Resp BP BP Pulse Ox 05/29/21 03:25 36.4 C L 62 20 128/80 99 05/28/21 20:25 36.5 C 68 18 104/55 L 97 Laboratory Results 05/29/21 05/29/21 05/29/21 Range/Units 07:15 05:24 05:24 WBC 6.01 (4.8-10.8) K/uL RBC 3.74 L (4.7-6.1) M/uL Hgb 9.2 L (14.0-18.0) g/dL Hct 31.0 L (42-52) % MCV 82.9 (80-100) fL MCH 24.6 L (25-34) pg MCHC 29.7 L (32-36) g/dL RDW Std Deviation 51.3 H (36.4-46.3) fL RDW Coeff of Lianne 17.0 H (11.5-14.5) % Plt Count 187 (130-400) K/uL MPV 9.2 (7.4-10.4) fL Immature Gran % (Auto) 4.7 % Neut % (Auto) 70.4 % Lymph % (Auto) 15.3 % Bonner % (Auto) 7.3 % Eos % (Auto) 2.0 % Baso % (Auto) 0.3 % Neut # (Auto) 4.23 (1.4-6.5) K/uL Lymph # (Auto) 0.92 L (1.2-3.4) K/uL Bonner # (Auto) 0.44 (0.11-0.59) K/uL Eos # (Auto) 0.12 (0-0.5) K/uL Baso # (Auto) 0.02 (0-0.2) K/uL Immature Gran # (Auto) 0.28 H (0.00-0.02) K/uL Sodium 138 (136-145) mmol/L Potassium 4.1 (3.5-5.1) mmol/L Chloride 108 H (98-107) mmol/L Carbon Dioxide 26 (21-32) mmol/L Anion Gap 4 (3-11) BUN 36 H (6-23) mg/dl Creatinine 1.32 (0.6-1.4) mg/dl Est Cr Clr Drug Dosing 59.7 ml/min Est GFR ( Amer) 60.3 ml/min Est GFR (Non-Af Amer) 52.0 ml/min BUN/Creatinine Ratio 27.3 H (10-20) Glucose 94 (70-99(Fasting)) mg/dl POC Glucose 84 (70-99) mg/dl Calcium 8.2 L (8.5-10.1) mg/dl Magnesium 2.4 (1.7-2.4) mg/dl Total Bilirubin 0.4 (0.2-1.0) mg/dl AST 18 (13-39) U/L ALT 7 (7-52) U/L Alkaline Phosphatase 51 (34-104) U/L Troponin I 39.15 H* (0-0.04) ng/ml Total Protein 5.2 L (6.0-8.3) gm/dl Albumin 3.2 L (3.4-5.0) gm/dl Globulin 2.0 L (2.5-4.0) gm/dl Albumin/Globulin Ratio 1.6 (0.9-2) Stool Occult Bld Scrn (Negative) 05/28/21 05/28/21 05/28/21 Range/Units 21:03 20:20 16:06 WBC (4.8-10.8) K/uL RBC (4.7-6.1) M/uL Hgb (14.0-18.0) g/dL Hct (42-52) % MCV (80-100) fL MCH (25-34) pg MCHC (32-36) g/dL RDW Std Deviation (36.4-46.3) fL RDW Coeff of Lianne (11.5-14.5) % Plt Count (130-400) K/uL MPV (7.4-10.4) fL Immature Gran % (Auto) % Neut % (Auto) % Lymph % (Auto) % Bonner % (Auto) % Eos % (Auto) % Baso % (Auto) % Neut # (Auto) (1.4-6.5) K/uL Lymph # (Auto) (1.2-3.4) K/uL Bonner # (Auto) (0.11-0.59) K/uL Eos # (Auto) (0-0.5) K/uL Baso # (Auto) (0-0.2) K/uL Immature Gran # (Auto) (0.00-0.02) K/uL Sodium (136-145) mmol/L Potassium (3.5-5.1) mmol/L Chloride (98-107) mmol/L Carbon Dioxide (21-32) mmol/L Anion Gap (3-11) BUN (6-23) mg/dl Creatinine (0.6-1.4) mg/dl Est Cr Clr Drug Dosing ml/min Est GFR ( Amer) ml/min Est GFR (Non-Af Amer) ml/min BUN/Creatinine Ratio (10-20) Glucose (70-99(Fasting)) mg/dl POC Glucose 144 H 155 H (70-99) mg/dl Calcium (8.5-10.1) mg/dl Magnesium (1.7-2.4) mg/dl Total Bilirubin (0.2-1.0) mg/dl AST (13-39) U/L ALT (7-52) U/L Alkaline Phosphatase (34-104) U/L Troponin I (0-0.04) ng/ml Total Protein (6.0-8.3) gm/dl Albumin (3.4-5.0) gm/dl Globulin (2.5-4.0) gm/dl Albumin/Globulin Ratio (0.9-2) Stool Occult Bld Scrn Negative (Negative) 05/28/21 Range/Units 11:10 WBC (4.8-10.8) K/uL RBC (4.7-6.1) M/uL Hgb (14.0-18.0) g/dL Hct (42-52) % MCV (80-100) fL MCH (25-34) pg MCHC (32-36) g/dL RDW Std Deviation (36.4-46.3) fL RDW Coeff of Lianne (11.5-14.5) % Plt Count (130-400) K/uL MPV (7.4-10.4) fL Immature Gran % (Auto) % Neut % (Auto) % Lymph % (Auto) % Bonner % (Auto) % Eos % (Auto) % Baso % (Auto) % Neut # (Auto) (1.4-6.5) K/uL Lymph # (Auto) (1.2-3.4) K/uL Bonner # (Auto) (0.11-0.59) K/uL Eos # (Auto) (0-0.5) K/uL Baso # (Auto) (0-0.2) K/uL Immature Gran # (Auto) (0.00-0.02) K/uL Sodium (136-145) mmol/L Potassium (3.5-5.1) mmol/L Chloride (98-107) mmol/L Carbon Dioxide (21-32) mmol/L Anion Gap (3-11) BUN (6-23) mg/dl Creatinine (0.6-1.4) mg/dl Est Cr Clr Drug Dosing ml/min Est GFR ( Amer) ml/min Est GFR (Non-Af Amer) ml/min BUN/Creatinine Ratio (10-20) Glucose (70-99(Fasting)) mg/dl POC Glucose 170 H (70-99) mg/dl Calcium (8.5-10.1) mg/dl Magnesium (1.7-2.4) mg/dl Total Bilirubin (0.2-1.0) mg/dl AST (13-39) U/L ALT (7-52) U/L Alkaline Phosphatase (34-104) U/L Troponin I (0-0.04) ng/ml Total Protein (6.0-8.3) gm/dl Albumin (3.4-5.0) gm/dl Globulin (2.5-4.0) gm/dl Albumin/Globulin Ratio (0.9-2) Stool Occult Bld Scrn (Negative) PG Care Time/CCT Total # of Minutes Spent Total Time Spent with Patient: Total time spent is greater than 50% in coordination of care (as documented) at patient's floor/unit and/or counseling patient: Coding
[2021-05-29] MEDS: INSULIN GLARGINE SOLOSTAR 100 UNITS/ML 3 ML PEN SQ SCH ×2 (08:18→20:47)
[2021-05-29] MEDS: UMECLIDINIUM/VILANTEROL 62.5/25MCG 7 PUFFS/INHALER INH SCH (08:18)
[2021-05-29] MEDS: FLUTICASONE FUROATE 100MCG 14 PUFFS/INHALER INH SCH (08:18)
[2021-05-29] MEDS: CYANOCOBALAMIN 1000 MCG/ML VIAL IM SCH (08:19)
[2021-05-29] MEDS: INSULIN ASPART PER UNIT SC SCH ×4 (08:19→20:46)
[2021-05-29] MEDS: INSULIN HUMAN NPH SC SCH (08:19)
[2021-05-29] MEDS: FINASTERIDE 5 MG TAB PO SCH (08:20)
[2021-05-29] MEDS: LIDOCAINE 5% 1 PATCH TD SCH (08:20)
[2021-05-29] MEDS: FEXOFENADINE HCL 180 MG TAB PO SCH (08:20)
[2021-05-29] MEDS: COLCHICINE 0.6 MG TAB PO SCH ×2 (08:20→20:44)
[2021-05-29] MEDS: levETIRAcetam 500 MG TAB PO SCH ×2 (08:20→20:45)
[2021-05-29] MEDS: CARBIDOPA/LEVODOPA 25/100MG TAB PO SCH ×3 (08:20→20:43)
[2021-05-29] MEDS: GABAPENTIN 300 MG CAP PO SCH ×2 (08:20→20:45)
[2021-05-29] MEDS: TOPIRAMATE 100 MG TAB PO SCH ×2 (08:20→20:43)
[2021-05-29] MEDS: predniSONE 10 MG TABLET PO SCH (08:21)
[2021-05-29] MEDS: PANTOprazole 40 MG TAB PO SCH ×2 (08:21→20:45)
[2021-05-29] MEDS: ASPIRIN 81 MG ECTAB PO SCH ×2 (08:21→20:43)
[2021-05-29] MEDS: SENNA 8.6 MG TAB PO SCH (08:22)
[2021-05-29] MEDS: DICLOFENAC SOD 1% GEL 100 GM TUBE EXT SCH ×4 (08:22→20:46)
[2021-05-29] MEDS: DOCUSATE SODIUM/SENNA 50/8.6MG TAB PO SCH (08:22)
[2021-05-29] MEDS: POTASSIUM CHLORIDE 10 MEQ TABCR PO SCH (08:23)
[2021-05-29] MEDS: ONDANSETRON INJ 2 MG/ML 2 ML VIAL IV PRN ×3 (08:44→20:49)
[2021-05-29] MEDS: MoRPHine SULFATE 2 MG/ML CARP IV PRN ×3 (08:44→20:49)
--- NOTE | 2021-05-29 14:09 | Hospitalist Progress Note ---
Date of Service May 29, 2021 Assessment & Plan (1) Myocarditis: Plan: Patient admitted with initial complaints of chest pain/shortness of breath -- chronic issues with shortness of breath/chronic steroid use with RA/polymyositis Hx CAD/stent to main LAD 2018 (after cath with complaints of syncope after getting radiation for his prostate ca) Trop elevated to 39.2 on admission ECHO * LV preserved with normal gradient across mechanical valve with mild paravalvu lar and valvular regurgitation. 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 Procal 0.48. BNP wnl --> ESR/CRP wnl on repeat 05/28 -->Improvement in chest pain per patient however did have some discomfort following Venofer --> continue ASA BID, colchicine BID for a month then continue daily given second recurrence. Topical Voltaren (uses at home as well) Also on PPI BID for GI Proph given increased risk of bleeding (see steroids as well) -- continue at d/c. 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 Could be related to autoimmune nonetheless * --> rec 40mg prednisone daily, decrease by 10mg weekly until seen. * Initially f/u appt 06/15, moved up to 06/06 * --> given continued chest discomfort/elevated trop, discussed with cardiology and they have placed patient on aspirin 81mg BID as well as protonix BID. Likely not able to tolerate any higher doses of the aspirin Got 3rd dose of Venofer/continued B12 supplementation for anemia. monitor CBC as well (has trended down/no s/sx bleeding) ESR 19, CRP <0.5 No further arrhythmias/Vtach overnight Trop still elevated and will continue to monitor Pain control/antiemetics prn/supportive care willl discuss again with cardiology tomorrow patient frustrated he is not feeling better, still having chest pain discussed that it can take some time to resolve (2) Elevated troponin: Plan: elevated in setting of myocarditis -- see above, still high at 39 today monitor on tele -- no further arrhythmia (3) CAD (coronary atherosclerotic disease): Plan: follows with Dr Chau. 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 A cardiac catheterization in April 2019 noted a patent left main stent and mild diffuse disease within the LAD, LCx, and RCA ECHO 02/14/21 noted normal systolic function with ejection fraction 55-60% s/p cath as above, non-obs see tx #1 continue statin, asa (increased to BID under #1) Added metoprolol 12.5 mg daily for vtach -- no further ordered per cards as resting HR mid-high 50s, lower when sleeping and BPs lower plan to ambulate tomorrow, see how he feels (4) AZUL (dyspnea on exertion): Plan: - see above -Patient has history of interstitial lung dz, pulmonary function at baseline is poor. Also with PAULA s/p Venofer x 3 (300mg + 300mg + 200mg) --> fever/chills/cp following venofer --> EKG repeated, trop unchanged No further dosing but patient looking better, states sob improved and remains on room air Prednisone --> was on 12mg as attempting to taper. --> Increased to 40mg and to taper by 10mg weekly until f/u rheumatology --> DECREASED TO 30MG DAILY starting tomorrow --> f/u appt jun [address] Buckley remains stable on room air follows with Dr. Ortega for ILD (5) Interstitial lung disease: Plan: Patient follows with rheumatology as well as with Pulmonary ---> Continue prednisone 40mg per day ---> Had been taking 12mg daily. changed as above. Prednisone and taper as above (6) Chronic anemia: Plan: chronic, macrocytic given shortness of breath/neuropathy, checked iron/B12 iron 26, normal TIBC. ferritin 27.4. Trans % sat 9 LOW --> iron deficiency anemia and given venofer x 1 05/25, 05/26, 05/27. no further B12 also low/normal --> IM while inpatient, PO at discharge hgb is stable at 9.2 --> on ASA BID, colchicine BID for #1 Protonix BID monitor for any signs of bleeding, none thus far (7) Diabetes: Plan: A1c 7.05 April 2021 NPH per pharmacy, on consult given prednisone and taper BSGs improved (8) HLD (hyperlipidemia): Plan: -continue Atorvastatin 40 (9) History of aortic valve replacement: Plan: - No acute needs - ECHO with myocarditis workup - Continue with his Coumadin 7.5 mg daily INR therapeutic (10) Diabetic peripheral neuropathy: Plan: Continue Gabapentin Also replacing vitamin B12 which may be contributing -- continue IM while inpatient, PO at discharge (11) Parkinsonism: Plan: Started trial Sinemet in June - He follows with Neurology Dr Sheikh - Continue Sinemet 25/100 (12) Seizure: Plan: Patient reports history of seizures- he has seen a headache specialist - Continue Keppra, Topiramate, Gabapentin - Seizure precautions -- no activity noted f/u outpatient for further eval epilepsy vs PNES (13) Non-ST elevation [place] (NSTEMI): Plan: concerns for such on admission given elevated trop/hx CAD. Cath without obstructive disease ruled out (14) PAF (paroxysmal atrial fibrillation): Plan: on coumadin, also with mechanical AVR INR therapeutic (15) Constipation: Plan: --> reported had not moved bowels since last Sunday. KUB without obstructive pattern uses miralax Q6H at home with this and has been ordered Passing gas, active BS on exam. s/p mag citrate x 1. adding senna/docusate encouraged ambulation/limit opiates 05/28--> multiple BM, loose not diarrhea. OK to hold further miralax for now Plan: PT/OT eval for return home with services. Arranged via [employer] and they can start on Sunday. Private duty caregivers 3x/wk from 9a-1pm. discuss with cardiology tomorrow could consider discharge if he can ambulate in the halls Admission and Anticipated Discharge Date Admission Date: May 24, 2021 Subjective patient continues to have left sided chest pain, associated with headache at times admits he has felt a little dizzy when standing, he is not eating and drinking as much as he should no fever, breathing is okay, occasional cough having some loose stools today but he is not concerned, only had 2 loose BMs in 6 hours reviewed labs, Hb is stable at 9.2, troponin still high at 39 discussed that the pain could be from the myocarditis Review of Systems Review of Systems: All systems reviewed & are unremarkable except as noted in Subjective Cardiovascular: + chest pain Physical Exam Physical Exam: General: well developed, well nourished, no acute distress, comfortable Neck: supple, trachea midline, normal thyroid Lungs: clear to auscultation bilaterally, normal respiratory effort, no accessory muscle use, no distress Heart: regular S1 and S2, no murmur, peripheral pulses normal, capillary refill normal, no edema Abdomen: soft, NT, ND, + BS, no hepatomegaly, normal to percussion Extremities: normal in appearance, no cyanosis, no petechiae, strength is 5/5 bilaterally Neuro: awake, cooperative, moves all extremities, no focal motor deficits, CN II-XII intact, sensation in extremities intact, normal speech Skin: warm, dry, no rash, normal turgor Psych: Awake, alert oriented x 3, euthymic affect Results & Data Results & Data ([facility]) Vital Signs (Past 12 Hours) Vital Signs Temp Pulse Pulse Pulse Resp BP BP 05/29/21 11:00 36.8 C 82 16 113/64 05/29/21 08:00 58 L 05/29/21 07:00 37.0 C 16 L 96 H 16 131/71 05/29/21 03:25 36.4 C L 62 20 128/80 Pulse Ox 05/29/21 11:00 96 05/29/21 08:00 05/29/21 07:00 99 05/29/21 03:25 99 Laboratory Results Laboratory Results - last 24 hr 05/28/21 05/28/21 05/28/21 16:06 20:20 21:03 WBC RBC Hgb Hct MCV MCH MCHC RDW Std Deviation RDW Coeff of Lianne Plt Count MPV Immature Gran % (Auto) Neut % (Auto) Lymph % (Auto) [place] % (Auto) Eos % (Auto) Baso % (Auto) Neut # (Auto) Lymph # (Auto) [place] # (Auto) Eos # (Auto) Baso # (Auto) Immature Gran # (Auto) Sodium Potassium Chloride Carbon Dioxide Anion Gap BUN Creatinine Est Cr Clr Drug Dosing Est GFR ( Amer) Est GFR (Non-Af Amer) BUN/Creatinine Ratio Glucose POC Glucose 155 H 144 H Calcium Magnesium Total Bilirubin AST ALT Alkaline Phosphatase Troponin I Total Protein Albumin Globulin Albumin/Globulin Ratio Stool Occult Bld Scrn Negative 05/29/21 05/29/21 05/29/21 05:24 05:24 07:15 WBC 6.01 RBC 3.74 L Hgb 9.2 L Hct 31.0 L MCV 82.9 MCH 24.6 L MCHC 29.7 L RDW Std Deviation 51.3 H RDW Coeff of Lianne 17.0 H Plt Count 187 MPV 9.2 Immature Gran % (Auto) 4.7 Neut % (Auto) 70.4 Lymph % (Auto) 15.3 [place] % (Auto) 7.3 Eos % (Auto) 2.0 Baso % (Auto) 0.3 Neut # (Auto) 4.23 Lymph # (Auto) 0.92 L [place] # (Auto) 0.44 Eos # (Auto) 0.12 Baso # (Auto) 0.02 Immature Gran # (Auto) 0.28 H Sodium 138 Potassium 4.1 Chloride 108 H Carbon Dioxide 26 Anion Gap 4 BUN 36 H Creatinine 1.32 Est Cr Clr Drug Dosing 59.7 Est GFR ( Amer) 60.3 Est GFR (Non-Af Amer) 52.0 BUN/Creatinine Ratio 27.3 H Glucose 94 POC Glucose 84 Calcium 8.2 L Magnesium 2.4 Total Bilirubin 0.4 AST 18 ALT 7 Alkaline Phosphatase 51 Troponin I 39.15 H* Total Protein 5.2 L Albumin 3.2 L Globulin 2.0 L Albumin/Globulin Ratio 1.6 Stool Occult Bld Scrn 05/29/21 11:12 WBC RBC Hgb Hct MCV MCH MCHC RDW Std Deviation RDW Coeff of Lianne Plt Count MPV Immature Gran % (Auto) Neut % (Auto) Lymph % (Auto) [place] % (Auto) Eos % (Auto) Baso % (Auto) Neut # (Auto) Lymph # (Auto) [place] # (Auto) Eos # (Auto) Baso # (Auto) Immature Gran # (Auto) Sodium Potassium Chloride Carbon Dioxide Anion Gap BUN Creatinine Est Cr Clr Drug Dosing Est GFR ( Amer) Est GFR (Non-Af Amer) BUN/Creatinine Ratio Glucose POC Glucose 147 H Calcium Magnesium Total Bilirubin AST ALT Alkaline Phosphatase Troponin I Total Protein Albumin Globulin Albumin/Globulin Ratio Stool Occult Bld Scrn Medications Administered Current Inpatient Medications Acetaminophen (Acetaminophen 325 Mg Tab) 650 mg PO Q4H PRN PRN Reason: Pain Or Fever or headache Stop: 06/24/21 00:24 Albuterol (Albuterol Hfa 8 Gm Inhaler) 2 puffs INH Q4H PRN PRN Reason: Wheezing Stop: 06/24/21 00:24 Allopurinol (Allopurinol 100 Mg Tab) 100 mg PO QPM [facility] Stop: 06/24/21 20:59 Last Admin: 05/28/21 20:38 Dose: 100 mg Documented by: Aspirin (Aspirin 81 Mg Ectab) 81 mg PO QAM [facility] Stop: 06/25/21 08:59 Aspirin (Aspirin 81 Mg Ectab) 81 mg PO BID KIRSTEN Stop: 06/25/21 11:29 Last Admin: 05/29/21 08:21 Dose: 81 mg Documented by: Atorvastatin Calcium (Atorvastatin 40 Mg Tab) 40 mg PO HS [facility] Stop: 06/24/21 20:59 Last Admin: 05/28/21 20:38 Dose: 40 mg Documented by: Calcium Carbonate (Calcium Carbonate 1250mg Tab) 1,250 mg PO HS [facility] Stop: 06/24/21 20:59 Last Admin: 05/28/21 20:41 Dose: 1,250 mg Documented by: Carbidopa/Levodopa (Carbidopa/Levodopa 25/100mg Tab) 1 tab PO TID [facility] Stop: 06/24/21 08:59 Last Admin: 05/29/21 08:20 Dose: 1 tab Documented by: Colchicine (Colchicine 0.6 Mg Tab) 0.6 mg PO BID [facility] Stop: 06/24/21 20:59 Last Admin: 05/29/21 08:20 Dose: 0.6 mg Documented by: Dextrose (Dextrose 50% 50 Ml Syringe) 25 - 50 ml IV UD PRN; Protocol PRN Reason: Hypoglycemia Protocol Stop: 06/23/21 21:29 Diclofenac Sodium (Diclofenac Sod 1% Gel 100 Gm Tube) 2 gm EXT QID KIRSTEN Stop: 06/25/21 12:59 Last Admin: 05/29/21 11:42 Dose: 2 gm Documented by: Fexofenadine HCl (Fexofenadine Hcl 180 Mg Tab) 180 mg PO QAM [facility] Stop: 06/24/21 08:59 Last Admin: 05/29/21 08:20 Dose: 180 mg Documented by: Finasteride (Finasteride 5 Mg Tab) 5 mg PO QAM [facility] Stop: 06/24/21 08:59 Last Admin: 05/29/21 08:20 Dose: 5 mg Documented by: Fluticasone Furoate (Fluticasone Furoate 100mcg 14 Puffs/Inhaler) 1 puffs INH QAM [facility] Stop: 06/24/21 08:59 Last Admin: 05/29/21 08:18 Dose: 1 puffs Documented by: Furosemide (Furosemide 20 Mg Tab) 20 mg PO MoWeFr@0900 [facility] Stop: 06/24/21 08:59 Last Admin: 05/27/21 09:56 Dose: 20 mg Documented by: Gabapentin (Gabapentin 300 Mg Cap) 300 mg PO BID [facility] Stop: 06/24/21 08:59 Last Admin: 05/29/21 08:20 Dose: 300 mg Documented by: Glucagon (Glucagon For Inj 1 Mg Vial) 1 mg SQ UD PRN; Protocol PRN Reason: Hypoglycemia Protocol Stop: 06/23/21 21:29 Glucose (Glucose 10 Tabs/Tube) 4 - 8 tabs PO UD PRN; Protocol PRN Reason: Hypoglycemia Protocol Stop: 06/23/21 21:29 Glucose (Glucose 40% Gel 15 Gm Tube) 15 - 30 gm PO UD PRN; Protocol PRN Reason: Hypoglycemia Protocol Stop: 06/23/21 21:29 Insulin Aspart (Insulin Aspart Per Unit) 0 units SC ACHS [facility] Stop: 06/24/21 07:29 Last Admin: 05/29/21 11:42 Dose: 13 units Documented by: Insulin Glargine (Insulin Glargine Solostar 100 Units/Ml 3 Ml Pen) 10 units SQ BID [facility] Stop: 06/28/21 20:59 Insulin Human NPH (Insulin Human Nph) [address] [facility] Stop: 06/26/21 08:59 Last Admin: 05/29/21 08:19 Dose: 20 units Documented by: Levetiracetam (Levetiracetam 500 Mg Tab) 1,000 mg PO BID [facility] Stop: 06/24/21 08:59 Last Admin: 05/29/21 08:20 Dose: 1,000 mg Documented by: Lidocaine (Lidocaine 5% 1 Patch) [address] [facility] Stop: 06/26/21 11:59 Last Admin: 05/29/21 08:20 Dose: 1 patch Documented by: Miscellaneous (Carbohydrates For Hypoglycemia ) 15 - 30 gm PO UD PRN PRN Reason: Hypoglycemia Protocol Stop: 06/23/21 21:29 Miscellaneous (Remove Lidoderm Patch) 1 ea N/A DAILY@2100 [facility] Stop: 06/26/21 20:59 Last Admin: 05/28/21 20:46 Dose: 1 ea Documented by: Miscellaneous Information (Pharmacy Glycemic Mgmt Consult) 1 ea N/A UD PRN PRN Reason: Consult Stop: 06/24/21 17:58 Morphine Sulfate (Morphine Sulfate 2 Mg/Ml Carp) 2 mg IV Q4H PRN PRN Reason: Pain Stop: 06/08/21 10:35 Last Admin: 05/29/21 08:44 Dose: 2 mg Documented by: Nitroglycerin (Nitroglycerin Sl 0.4 Mg/Tab Tab) 0.4 mg SL Q5M PRN PRN Reason: chest pain Stop: 06/24/21 00:24 Ondansetron HCl (Ondansetron Inj 2 Mg/Ml 2 Ml Vial) 4 mg IV Q6H PRN PRN Reason: Nausea Stop: 06/24/21 00:24 Last Admin: 05/29/21 08:44 Dose: 4 mg Documented by: Pantoprazole Sodium (Pantoprazole 40 Mg Tab) 40 mg PO BID [facility] Stop: 06/25/21 20:59 Last Admin: 05/29/21 08:21 Dose: 40 mg Documented by: Polyethylene Glycol (Polyethylene (Miralax) 17 Gm Pack) 17 gm PO DAILY PRN PRN Reason: Constipation Stop: 06/24/21 00:24 Potassium Chloride (Potassium Chloride 10 Meq Tabcr) 10 meq PO QAM [facility] Stop: 06/24/21 08:59 Last Admin: 05/29/21 08:23 Dose: 10 meq Documented by: Prednisone (Prednisone 10 Mg Tablet) 30 mg PO QAM [facility] Stop: 06/28/21 08:59 Last Admin: 05/29/21 08:21 Dose: 30 mg Documented by: Senna/Docusate Sodium (Docusate Sodium/Senna 50/8.6mg Tab) 1 tab PO QAM [facility] Stop: 06/26/21 16:44 Last Admin: 05/29/21 08:22 Dose: Not Given Documented by: Sennosides (Senna 8.6 Mg Tab) 17.2 mg PO QAM [facility] Stop: 06/24/21 08:59 Last Admin: 05/29/21 08:22 Dose: Not Given Documented by: Topiramate (Topiramate 100 Mg Tab) 100 mg PO BID [facility] Stop: 06/24/21 20:59 Last Admin: 05/29/21 08:20 Dose: 100 mg Documented by: Umeclidinium/Vilanterol (Umeclidinium/Vilanterol 62.5/25mcg 7 Puffs/Inhaler) 1 puffs INH QAM [facility] Stop: 06/24/21 08:59 Last Admin: 05/29/21 08:18 Dose: 1 puffs Documented by: Vitamin D (Cholecalciferol 1,000 Units 25 Mcg Tab) 2,000 units PO HS [facility]IRSTEN Stop: 06/24/21 20:59 Last Admin: 05/28/21 20:39 Dose: 2,000 units Documented by: Warfarin Sodium (Warfarin Sod 7.5 Mg Tab) 7.5 mg PO HS [facility]EN Stop: 06/24/21 20:59 Last Admin: 05/28/21 20:38 Dose: 7.5 mg Documented by: PG Care Time/CCT Total # of Minutes Spent Total Time Spent with Patient: Total time spent is greater than 50% in coordination of care (as documented) at patient's floor/unit and/or counseling patient: Coding Level of Care Code 59347 Subseq Hosp Care Lvl 3 Diagnoses Myocarditis I51.4 Elevated troponin R77.8 CAD (coronary atherosclerotic disease) I25.10 AZUL (dyspnea on exertion) R06.00 Interstitial lung disease J84.9 Chronic anemia D64.9 Diabetes E11.42; Z79.4 Diabetes mellitus complication detail: with polyneuropathy Diabetes mellitus complication status: with neurologic complications Diabetes mellitus terminal worker insulin use: with terminal worker use Diabetes mellitus type: type 2 HLD (hyperlipidemia) E78.2 Hyperlipidemia type: mixed hyperlipidemia History of aortic valve replacement Z95.2 Diabetic peripheral neuropathy E11.42 Parkinsonism G20 Parkinsonism type: unspecified Seizure R56.9 Non-ST elevation [place] (NSTEMI) I21.4 PAF (paroxysmal atrial fibrillation) I48.0 Constipation K59.00 (1) Diabetes Diabetes mellitus complication detail: with polyneuropathy Diabetes mellitus complication status: with neurologic complications Diabetes mellitus custodial insulin use: with terminal worker use Diabetes mellitus type: type 2 Qualified Code(s): E11.42 - Type 2 diabetes mellitus with diabetic polyneuropathy; Z79.4 - exterminator (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
[2021-05-29] MEDS: CALCIUM CARBONATE 1250MG TAB PO SCH (20:43)
[2021-05-29] MEDS: CHOLECALCIFEROL 1,000 UNITS 25 MCG TAB PO SCH (20:45)
[2021-05-29] MEDS: allopurinoL 100 MG TAB PO SCH (20:45)
[2021-05-29] MEDS: ATORVASTATIN 40 MG TAB PO SCH (20:45)
[2021-05-29] MEDS: WARFARIN SOD 7.5 MG TAB PO SCH (20:45)
[2021-05-30 06:05] LABS: INR 3.7 (0.9-1.1); Prothrombin Time 33.8 Seconds (9.0-12.0)
[2021-05-30] MEDS: INSULIN ASPART PER UNIT SC SCH ×4 (09:05→20:39)
[2021-05-30] MEDS: COLCHICINE 0.6 MG TAB PO SCH ×2 (09:06→20:38)
[2021-05-30] MEDS: FEXOFENADINE HCL 180 MG TAB PO SCH (09:06)
[2021-05-30] MEDS: PANTOprazole 40 MG TAB PO SCH ×2 (09:06→20:38)
[2021-05-30] MEDS: levETIRAcetam 500 MG TAB PO SCH ×2 (09:06→20:38)
[2021-05-30] MEDS: GABAPENTIN 300 MG CAP PO SCH ×2 (09:06→20:38)
[2021-05-30] MEDS: FUROSEMIDE 20 MG TAB PO SCH (09:06)
[2021-05-30] MEDS: SENNA 8.6 MG TAB PO SCH (09:06)
[2021-05-30] MEDS: CARBIDOPA/LEVODOPA 25/100MG TAB PO SCH ×3 (09:07→20:39)
[2021-05-30] MEDS: predniSONE 10 MG TABLET PO SCH (09:07)
[2021-05-30] MEDS: TOPIRAMATE 100 MG TAB PO SCH ×2 (09:07→20:38)
[2021-05-30] MEDS: DOCUSATE SODIUM/SENNA 50/8.6MG TAB PO SCH (09:07)
[2021-05-30] MEDS: FINASTERIDE 5 MG TAB PO SCH (09:07)
[2021-05-30] MEDS: UMECLIDINIUM/VILANTEROL 62.5/25MCG 7 PUFFS/INHALER INH SCH (09:08)
[2021-05-30] MEDS: POLYETHYLENE (MIRALAX) 17 GM PACK PO PRN (09:08)
[2021-05-30] MEDS: LIDOCAINE 5% 1 PATCH TD SCH ×2 (09:08→11:36)
[2021-05-30] MEDS: INSULIN HUMAN NPH SC SCH (09:09)
[2021-05-30] MEDS: FLUTICASONE FUROATE 100MCG 14 PUFFS/INHALER INH SCH (09:10)
[2021-05-30] MEDS: DICLOFENAC SOD 1% GEL 100 GM TUBE EXT SCH ×5 (09:10→20:39)
[2021-05-30] MEDS: INSULIN GLARGINE SOLOSTAR 100 UNITS/ML 3 ML PEN SQ SCH ×2 (09:10→20:39)
[2021-05-30] MEDS: ASPIRIN 81 MG ECTAB PO SCH (09:11)
--- NOTE | 2021-05-30 09:39 | Cardiology Progress Note ---
Date of Service May 30, 2021 Assessment & Plan (1) Myocarditis: Plan: IMPRESSIONS: 1. Markedly elevated troponin secondary to myocarditis 2. History of mechanical aortic valve placed in 2003 at the time of an aortic dissection with repair of his a sending aorta 3. History of a left main stent in February 2019 4. 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 Multiple TIAs 6. Chronic anticoagulation with a goal INR of 2-1/2-3-1/2 with 81 mg of aspirin given his mechanical aortic valve and chronic atrial fibrillation 7. Chronic A. fib rate controlled 8. 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 Parkinson's disease 10. Diabetes mellitus type 2 He has had no further episodes of nonsustained VT since 2:00 in the morning on morning.His troponin continues to hover around 40. He continues to have chest pain. His case has been discussed with rheumatology and he has been placed on high-dose steroids as his myocarditis is likely related to his autoimmune disease. His viral cultures at this point are all negative and he did not have a symptoms of a URI prior to admission. For now his INR should be 2-1/2-3-1/2. I would continue colchicine 0.6 mg twice daily for at least a month and then reduce it to 0.6 mg daily. Given this is the second episode of myocarditis that he has had I would recommend remaining on colchicine indefinitely. I will discontinue his ASA as it does not seem to be helping and he has quite a lot of bruising and a supratherapeutic INR. His steroids are planning to be weaned as an outpatient. He has close follow up with rheum planned after discharge. There is really no room to give him beta-blockers to reduce his risk of ventricular arrhythmias associated with myocarditis His his resting heart rate is in the mid to high 50s. With sleep it is even lower. I would ambulate him in the hallway. If he is stable and not in need of rehab, he could potentially be discharged today. He will need to follow-up with me in our office in 10 to 14 days. His case was discussed with Dr. Chau and at this point there are no further recommendations from a cardiac perspective. His underlying issue is rheumatologic. Admission and Anticipated Discharge Date Admission Date: May 24, 2021 Subjective Mr. Suzette does not appear to be in distress although he has had persistent chest pain. His breathing is baseline. He thought he had some palpitations this morning but there has been no concerning ectopy on the monitor. No edema. Review of Systems Review of Systems: All systems reviewed & are unremarkable except as noted in HPI & below Physical Exam Constitutional: WD/WN, vitals as above Respiratory: normal respiratory effort, lungs clear to auscultation Cardiovascular: RRR, no murmur, no edema Skin: no rashes, warm and dry multiple areas of ecchymosis Neurologic: moves all extremities and awake Psychiatric: A+Ox3, euthymic affect Results & Data ([facility]) Vital Signs (Past 12 Hours) Vital Signs Temp Pulse Pulse Resp BP Pulse Ox 05/30/21 03:58 36.5 C 70 16 126/62 96 05/30/21 00:00 58 L 05/29/21 23:31 36.6 C 68 16 103/54 L 96
[2021-05-30] MEDS: ONDANSETRON INJ 2 MG/ML 2 ML VIAL IV PRN ×2 (09:53→20:49)
[2021-05-30] MEDS: oxyCODONE HCL IR 5 MG TAB (IMMEDIATE RELEASE) PO PRN ×2 (09:53→20:37)
[2021-05-30] MEDS: POTASSIUM CHLORIDE 10 MEQ TABCR PO SCH (10:36)
--- NOTE | 2021-05-30 11:20 | Pharmacy Report ---
Pharmacy Glycemic Short Note 2 - Date of Service May 30, 2021 - Glycemic Short BSG Results (Last 24 hours): 05/29/21 05/29/21 05/30/21 15:43 19:47 07:21 POC Glucose 172 H 206 H 144 H 05/30/21 11:14 POC Glucose 204 H OUTPATIENT ANTIDIABETIC REGIMEN: * Lantus 20 units BID * Sliding scale, up to 20 units ACHS * NPH 1:1 while on prednisone ASSESSMENT: 05/30 * Prednisone tapered from 40 to 30 mg po daily yesterday AM * Lantus was decreased yesterday. AM fasting good at 144 mg/dL. Will keep NPH and Lantus doses. * Post-prandial BSG's elevated yesterday after loosening CHO ratio with lunch but hesitant to tighten CHO ratio at this time due to steroid taper. Significant CHO intake yesterday noted 65-79 g CHO with meals plus a 50 g bedtime snack. 75 g with breakfast today. Will tighten CHO ratio if lunch BSG today with notable increase. 05/27: * Fasting BSG trending down today. Will reduce Lantus dose and NPH dose. Post prandial lunch BSG well controlled today. Patient continues on prednisone and is tolerating a diet. 05/26 * 76 year old admitted with myocarditis, started on home basal, but NPH was not given with prednisone yesterday resulting in blood sugars of 2112 and 276mg/dl yesterday. Begin NPH today with prednisone, will give higher dose today, and re-evaluate tomorrow. 1 unit per 1 mg prednisone was not given last admission, he received lower doses of NPH then, but he had a tighter CF/CR at that time. * Blood sugar also high pre-lunch d/t nurse not covering carbs in breakfast, will also tighten CR. PLAN FOR INPATIENT GLYCEMIC CONTROL: * Basal insulin * Lantus 10 units SQ BID * NPH 20 units qam with prednisone * Bolus insulin * NovoLog per scale ACHS or Q6hrs while NPO * Goal Range: Low 110 mg/dL - High 140 mg/dL * Correction Factor: 20 mg/dL/unit * Nutritional / Prandial insulin per carb ratio of 1 unit per 6 grams CHO consumed PLAN FOR DISCHARGE: * to be determined
--- NOTE | 2021-05-30 13:20 | Hospitalist Progress Note ---
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 RV function relatively preserved 05/25 s/p nonobstructive cath - ESR/CRP now WNL - Improvement in CP since admission but still present - Holding ASA BID; Continue Colchicine BID then convert to daily after one month and possibly remain on this indefinitely - Continue PPI BID - It was discussed w/ patients audit practice intern, who also notes complicated history/prior neg rheum factor but positive CCP/aldolase/etc. Could be related to autoimmune nonetheless * --> rec starting 40mg prednisone daily, decrease by 10mg weekly until seen * Initially f/u appt 06/15, moved up to 06/06 - Completed Venofer - No further arrhythmias/VT - Continue pain control - will try oral options - patient is reluctant to use due to concerns of addiction (2) Elevated troponin: Plan: - Elevated in setting of myocarditis - Monitor on tele -- no further arrhythmia (3) CAD (coronary atherosclerotic disease): Plan: - Follows with Dr Chau. 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 A cardiac catheterization in April 2019 noted a patent left main stent and mild diffuse disease within the LAD, LCx, and RCA - ECHO 02/14/21 noted normal systolic function with ejection fraction 55-60% - S/P catheterization this admission - Continue statin (4) AZUL (dyspnea on exertion): Plan: - see above -Patient has history of interstitial lung dz, pulmonary function at baseline is poor. Also with PAULA s/p Venofer x 3 (300mg + 300mg + 200mg) --> fever/chills/cp following venofer --> EKG repeated, trop unchanged No further dosing but patient looking better, states sob improved and remains on room air Prednisone --> was on 12mg as attempting to taper. --> Increased to 40mg and to taper by 10mg weekly until f/u rheumatology --> DECREASED TO 30MG DAILY ON 05/29 --> f/u appt jun [address] Buckley - Remains stable on room air - Follows with Dr. Ortega for ILD; also had telemed visit with [facility] to look at other options/medications (5) Interstitial lung disease: Plan: - Patient follows with rheumatology as well as with Pulmonary ---> Continue prednisone as above ---> Had been taking 12mg daily. changed as above. (6) Chronic anemia: Plan: - chronic, macrocytic given shortness of breath/neuropathy, checked iron/B12 iron 26, normal TIBC. ferritin 27.4. Trans % sat 9 LOW --> iron deficiency anemia and given venofer x 1 05/25, 05/26, 05/27. no further dosing hgb is stable (7) Diabetes: Plan: - A1c 7.05 April 2021 - NPH per pharmacy, on consult given prednisone and taper - BSGs improved (8) HLD (hyperlipidemia): Plan: - continue Atorvastatin (9) History of aortic valve replacement: Plan: - No acute needs; INR goal 2.5-3.5 - ECHO with myocarditis workup - Continue with his Coumadin 7.5 mg daily with hold parameters per INR -- Currently supratherapeutic and will recheck (10) Diabetic peripheral neuropathy: Plan: - Continue Gabapentin (11) Parkinsonism: Plan: - Started trial Sinemet in June - He follows with Neurology Dr Sheikh - Continue Sinemet 25/ (12) Seizure: Plan: Patient reports history of seizures- he has seen a headache specialist - Continue Keppra, Topiramate, Gabapentin - Seizure precautions -- no activity noted (13) PAF (paroxysmal atrial fibrillation): Plan: - On coumadin, also with mechanical AVR (14) Constipation: Plan: - Multiple BMs on 05/28 Plan: PT/OT eval for return home with services. Arranged via [employer] and they can start on Sunday. Private duty caregivers 3x/wk from 9a-1pm. Possible D/C home tomorrow Admission and Anticipated Discharge Date Admission Date: May 24, 2021 Subjective No acute events overnight. Reports continuing CP but denies worsening of that. Denies SOB. Stated he had some dizziness this AM but when reassess in afternoon he states he hasnt been up to further assess if still present. No dizziness with rest. Also reports feeling a bit constipated and has drinking Miralax this AM but had some loose stool yesterday. Reports an overall poor appetite which he reports he doesn't eat like he should at home either. Feels a bit overwhelmed with figuring out his RA/lung conditions. States he had a telemed visit with [facility] but isn't certain what is going on with that. Review of Systems Review of Systems: All systems reviewed & are unremarkable except as noted in Subjective Physical Exam Physical Exam: PHYSICAL EXAM General Appearance: WDWN in NAD who is A&O x 3 HEENT: Head is normocephalic/atraumatic; Hearing grossly intact; Mucous membranes moist Neck: Supple; Trachea midline; Neg JVD Heart: RRR with no M/G/R Lungs: CTA in all lung [place] bilaterally; Respirations unlabored; Neg accessory muscle use Abdomen: Soft, non-tender, non-distended; Positive BS x 4 quadrants Extremities: Neg cyanosis or edema Neurological: Speech clear; Gross motor/sensory function intact; Neg focal neurologic deficits Psychiatric: Appropriate mood/affect Skin: Normal Color; Warm/Dry; Scattered ecchymosis Results & Data Results & Data ([facility]) Vital Signs (Past 12 Hours) Vital Signs Temp Pulse Pulse Resp BP Pulse Ox 05/30/21 11:50 36.3 C L 58 L 17 111/59 L 95 05/30/21 09:00 36.9 C 79 20 111/58 L 96 05/30/21 03:58 36.5 C 70 16 126/62 96 PG Care Time/CCT Total # of Minutes Spent Total Time Spent with Patient: Total time spent is greater than 50% in coordination of care (as documented) at patient's floor/unit and/or counseling patient: Coding Level of Care Code 49662 Subseq Hosp Care Lvl 3 Diagnoses Myocarditis I51.4 Elevated troponin R77.8 CAD (coronary atherosclerotic disease) I25.10 AZUL (dyspnea on exertion) R06.00 Interstitial lung disease J84.9 Chronic anemia D64.9 Diabetes E11.42; Z79.4 Diabetes mellitus complication detail: with polyneuropathy Diabetes mellitus complication status: with neurologic complications Diabetes mellitus senior living insulin use: with senior living use Diabetes mellitus type: type 2 HLD (hyperlipidemia) E78.2 Hyperlipidemia type: mixed hyperlipidemia History of aortic valve replacement Z95.2 Diabetic peripheral neuropathy E11.42 Parkinsonism G20 Parkinsonism type: unspecified Seizure R56.9 PAF (paroxysmal atrial fibrillation) I48.0 Constipation K59.00 (1) Diabetes Diabetes mellitus complication detail: with polyneuropathy Diabetes mellitus complication status: with neurologic complications Diabetes mellitus senior living insulin use: with senior living use Diabetes mellitus type: type 2 Qualified Code(s): E11.42 - Type 2 diabetes mellitus with diabetic polyneuropathy; Z79.4 - [facility] (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
[2021-05-30] MEDS: ATORVASTATIN 40 MG TAB PO SCH (20:38)
[2021-05-30] MEDS: allopurinoL 100 MG TAB PO SCH (20:38)
[2021-05-30] MEDS: CHOLECALCIFEROL 1,000 UNITS 25 MCG TAB PO SCH (20:38)
[2021-05-30] MEDS: CALCIUM CARBONATE 1250MG TAB PO SCH (20:39)
[2021-05-31 06:26] LABS: Hematocrit (blood only) 32.2 % (42-52); Hemoglobin 9.6 g/dL (14.0-18.0); Mean Corpuscular Hemoglobin 24.9 pg (25-34); Mean Corpuscular Hgb Conc 29.8 g/dL (32-36); Mean Corpuscular Volume 83.6 fL (80-100); Mean Platelet Volume 9.1 fL (7.4-10.4); Platelet Count 174 K/uL (130-400); RDW Standard Deviation 52.2 fL (36.4-46.3); Red Blood Count 3.85 M/uL (4.7-6.1); White Blood Count 6.12 K/uL (4.8-10.8)
[2021-05-31 06:42] LABS: Prothrombin Time 36.5 Seconds (9.0-12.0)
[2021-05-31 06:49] LABS: Troponin I 37.66 ng/ml (0-0.04)
[2021-05-31 07:01] LABS: BUN Creatinine Ratio 28.8 (10-20); Calcium 7.9 mg/dl (8.5-10.1); Creatinine Clr Calc Pharmacy 62.9 ml/min; Est GFR (African American) 64.4 ml/min; Est GFR (Non-African American) 55.6 ml/min; Potassium 3.8 mmol/L (3.5-5.1)
[2021-05-31] MEDS: COLCHICINE 0.6 MG TAB PO SCH ×2 (08:48→20:33)
[2021-05-31] MEDS: CARBIDOPA/LEVODOPA 25/100MG TAB PO SCH ×3 (08:49→20:33)
[2021-05-31] MEDS: DOCUSATE SODIUM/SENNA 50/8.6MG TAB PO SCH (08:49)
[2021-05-31] MEDS: predniSONE 10 MG TABLET PO SCH (08:50)
[2021-05-31] MEDS: FEXOFENADINE HCL 180 MG TAB PO SCH (08:51)
[2021-05-31] MEDS: FINASTERIDE 5 MG TAB PO SCH (08:51)
[2021-05-31] MEDS: TOPIRAMATE 100 MG TAB PO SCH ×2 (08:51→20:33)
[2021-05-31] MEDS: PANTOprazole 40 MG TAB PO SCH ×2 (08:52→20:33)
[2021-05-31] MEDS: levETIRAcetam 500 MG TAB PO SCH ×2 (08:52→20:33)
[2021-05-31] MEDS: GABAPENTIN 300 MG CAP PO SCH ×2 (08:52→20:33)
[2021-05-31] MEDS: FLUTICASONE FUROATE 100MCG 14 PUFFS/INHALER INH SCH (08:53)
[2021-05-31] MEDS: SENNA 8.6 MG TAB PO SCH (08:53)
[2021-05-31] MEDS: UMECLIDINIUM/VILANTEROL 62.5/25MCG 7 PUFFS/INHALER INH SCH (08:53)
[2021-05-31] MEDS: LIDOCAINE 5% 1 PATCH TD SCH (08:54)
[2021-05-31] MEDS: DICLOFENAC SOD 1% GEL 100 GM TUBE EXT SCH ×4 (08:54→20:33)
[2021-05-31] MEDS: INSULIN HUMAN NPH SC SCH (08:55)
[2021-05-31] MEDS: INSULIN GLARGINE SOLOSTAR 100 UNITS/ML 3 ML PEN SQ SCH ×2 (08:55→20:32)
[2021-05-31] MEDS: INSULIN ASPART PER UNIT SC SCH ×4 (08:58→20:32)
[2021-05-31] MEDS: POTASSIUM CHLORIDE 10 MEQ TABCR PO SCH (09:02)
[2021-05-31] MEDS ORDERED: traMADol HCL 50 MG TABLET PO PRN (11:43)
--- NOTE | 2021-05-31 18:45 | Hospitalist Progress Note ---
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 RV function relatively preserved - 05/25 s/p nonobstructive cath - ESR/CRP now WNL - Improvement in CP since admission but still present - Holding ASA BID; Continue Colchicine BID then convert to daily after one month and possibly remain on this indefinitely - Continue PPI BID - It was discussed w/ patients practice clinician, who also notes complicated history/prior neg rheum factor but positive CCP/aldolase/etc. Could be related to autoimmune nonetheless * --> rec starting 40mg prednisone daily, decrease by 10mg weekly until seen * Initially f/u appt 06/15, moved up to 06/06 - Completed Venofer - No further arrhythmias/VT - Continue pain control - will try Tramadol - he has not required any narcotic pain medication today -- Discussed with patient - he reports in the past he got dependent on Oxycodone related to back issues. He also states at that time he started having worsening dreams to the point he would dream that he should take the whole bottle to overdose and . He was concerned with this and say his doctor and had his son remove all the pain medication. He does not endorse suicidal thoughts or plans currently but is afraid to have these type of medications in his house because he never thought he would ever consider doing something like that. However he is also afraid of worsening pain. -- One option may be to only give him a couple pills to have at home at one time. He would need to have close follow-up with his family doctor of more pills are needed but he states that may ease his mind in regards to pain medication if he doesn't have a lot at home and only uses the pain medication sparingly. (2) Elevated troponin: Plan: - Elevated in setting of myocarditis - Monitor on tele -- no further arrhythmia (3) CAD (coronary atherosclerotic disease): Plan: - Follows with Dr Chau. 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 A cardiac catheterization in April 2019 noted a patent left main stent and mild diffuse disease within the LAD, LCx, and RCA - ECHO 02/14/21 noted normal systolic function with ejection fraction 55-60% - S/P catheterization this admission - Continue statin (4) AZUL (dyspnea on exertion): Plan: - see above -Patient has history of interstitial lung dz, pulmonary function at baseline is poor. Also with PAULA s/p Venofer x 3 (300mg + 300mg + 200mg) --> fever/chills/cp following venofer --> EKG repeated, trop unchanged No further dosing but patient looking better, states sob improved and remains on room air Prednisone --> was on 12mg as attempting to taper. --> Increased to 40mg and to taper by 10mg weekly until f/u rheumatology --> DECREASED TO 30MG DAILY ON 05/29 --> f/u appt jun [address] Buckley - Remains stable on room air - Follows with Dr. Ortega for ILD; also had telemed visit with [facility] to look at other options/medications (5) Interstitial lung disease: Plan: - Patient follows with rheumatology as well as with Pulmonary ---> Continue prednisone as above ---> Had been taking 12mg daily. changed as above. (6) Chronic anemia: Plan: - chronic, macrocytic given shortness of breath/neuropathy, checked iron/B12 iron 26, normal TIBC. ferritin 27.4. Trans % sat 9 LOW --> iron deficiency anemia and given venofer x 1 05/25, 05/26, 05/27. no further dosing hgb is stable (7) Diabetes: Plan: - A1c 7.05 April 2021 - NPH per pharmacy, on consult given prednisone and taper - BSGs improved (8) HLD (hyperlipidemia): Plan: - continue Atorvastatin (9) History of aortic valve replacement: Plan: - No acute needs; INR goal 2.5-3.5 - ECHO with myocarditis workup - Continue with his Coumadin 7.5 mg daily with hold parameters per INR -- Currently supratherapeutic and will monitor (10) Diabetic peripheral neuropathy: Plan: - Continue Gabapentin (11) Parkinsonism: Plan: - Started trial Sinemet in June - He follows with Neurology Dr Sheikh - Continue Sinemet 25/ (12) Seizure: Plan: Patient reports history of seizures- he has seen a headache specialist - Continue Keppra, Topiramate, Gabapentin - Seizure precautions -- no activity noted (13) PAF (paroxysmal atrial fibrillation): Plan: - On coumadin, also with mechanical AVR (14) Constipation: Plan: - Multiple BMs on 05/28 Plan: PT/OT eval for return home with services. Arranged via [employer] and they can start on Sunday. Private duty caregivers 3x/wk from 9a-1pm. I think patient needs some reassurance that pain is manageable and he is doing well. Medically he is stable and could work to get him discharge. Anxiety could be the limiting factor in that regard Admission and Anticipated Discharge Date Admission Date: May 24, 2021 Subjective No acute events overnight. No irregular rhythms on monitor. Patient reports feeling the same today. Is afraid to use stronger pain medication. Reports a lot of anxiety and feeling overwhelmed in what he needs to do. No worsening symptoms and remains hemodynamically stable. Review of Systems Review of Systems: All systems reviewed & are unremarkable except as noted in Subjective Physical Exam Physical Exam: PHYSICAL EXAM General Appearance: WDWN in NAD who is A&O x 3 HEENT: Head is normocephalic/atraumatic; Hearing grossly intact; Mucous membranes moist Neck: Supple; Trachea midline; Neg JVD Heart: RRR with no M/G/R Lungs: CTA in all lung [place] bilaterally; Respirations unlabored; Neg accessory muscle use Abdomen: Soft, non-tender, non-distended; Positive BS x 4 quadrants Extremities: Neg cyanosis or edema Neurological: Speech clear; Gross motor/sensory function intact; Neg focal neurologic deficits Psychiatric: Appropriate mood/affect; slightly anxious Skin: Normal Color; Warm/Dry; Scattered ecchymosis Results & Data Results & Data ([facility]) Vital Signs (Past 12 Hours) Vital Signs Temp Pulse Pulse Resp BP Pulse Ox 05/31/21 15:15 36.8 C 69 18 120/64 98 05/31/21 15:00 74 05/31/21 10:46 36.5 C 63 22 106/54 L 97 05/31/21 07:39 36.5 C 57 L 20 148/80 H 98 05/31/21 07:30 68 PG Care Time/CCT Total # of Minutes Spent Total Time Spent with Patient: Total time spent is greater than 50% in coordination of care (as documented) at patient's floor/unit and/or counseling patient: Coding Level of Care Code 71695 Subseq Hosp Care Lvl 3 Diagnoses Myocarditis I51.4 Elevated troponin R77.8 CAD (coronary atherosclerotic disease) I25.10 AZUL (dyspnea on exertion) R06.00 Interstitial lung disease J84.9 Chronic anemia D64.9 Diabetes E11.42; Z79.4 Diabetes mellitus complication detail: with polyneuropathy Diabetes mellitus complication status: with neurologic complications Diabetes mellitus snf insulin use: with snf use Diabetes mellitus type: type 2 HLD (hyperlipidemia) E78.2 Hyperlipidemia type: mixed hyperlipidemia History of aortic valve replacement Z95.2 Diabetic peripheral neuropathy E11.42 Parkinsonism G20 Parkinsonism type: unspecified Seizure R56.9 PAF (paroxysmal atrial fibrillation) I48.0 Constipation K59.00 (1) Diabetes Diabetes mellitus complication detail: with polyneuropathy Diabetes mellitus complication status: with neurologic complications Diabetes mellitus snf insulin use: with termite exterminator helper use Diabetes mellitus type: type 2 Qualified Code( s): E11.42 - Type 2 diabetes mellitus with diabetic polyneuropathy; Z79.4 - termite exterminator helper (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
[2021-05-31] MEDS ORDERED: MELATONIN 3 MG TAB PO PRN (19:08)
[2021-05-31] MEDS: CALCIUM CARBONATE 1250MG TAB PO SCH (20:33)
[2021-05-31] MEDS: CHOLECALCIFEROL 1,000 UNITS 25 MCG TAB PO SCH (20:33)
[2021-05-31] MEDS: ATORVASTATIN 40 MG TAB PO SCH (20:33)
[2021-05-31] MEDS: allopurinoL 100 MG TAB PO SCH (20:33)
[2021-05-31] MEDS: POLYETHYLENE (MIRALAX) 17 GM PACK PO PRN (20:44)
[2021-06-01 06:51] LABS: Prothrombin Time 19.3 Seconds (9.0-12.0)
[2021-06-01] MEDS: DICLOFENAC SOD 1% GEL 100 GM TUBE EXT SCH (07:37)
[2021-06-01] MEDS: FINASTERIDE 5 MG TAB PO SCH (07:38)
[2021-06-01] MEDS: SENNA 8.6 MG TAB PO SCH (07:38)
[2021-06-01] MEDS: predniSONE 10 MG TABLET PO SCH (07:39)
[2021-06-01] MEDS: PANTOprazole 40 MG TAB PO SCH (07:40)
[2021-06-01] MEDS: TOPIRAMATE 100 MG TAB PO SCH (07:40)
[2021-06-01] MEDS: FUROSEMIDE 20 MG TAB PO SCH (07:40)
[2021-06-01] MEDS: UMECLIDINIUM/VILANTEROL 62.5/25MCG 7 PUFFS/INHALER INH SCH (07:41)
[2021-06-01] MEDS: LIDOCAINE 5% 1 PATCH TD SCH (07:41)
[2021-06-01] MEDS: levETIRAcetam 500 MG TAB PO SCH (07:41)
[2021-06-01] MEDS: COLCHICINE 0.6 MG TAB PO SCH (07:42)
[2021-06-01] MEDS: CARBIDOPA/LEVODOPA 25/100MG TAB PO SCH (07:42)
[2021-06-01] MEDS: FLUTICASONE FUROATE 100MCG 14 PUFFS/INHALER INH SCH (07:43)
[2021-06-01] MEDS: GABAPENTIN 300 MG CAP PO SCH (07:43)
[2021-06-01] MEDS: FEXOFENADINE HCL 180 MG TAB PO SCH (07:44)
[2021-06-01] MEDS: DOCUSATE SODIUM/SENNA 50/8.6MG TAB PO SCH (07:45)
[2021-06-01] MEDS: INSULIN GLARGINE SOLOSTAR 100 UNITS/ML 3 ML PEN SQ SCH (07:46)
[2021-06-01] MEDS: INSULIN HUMAN NPH SC SCH (07:48)
[2021-06-01] MEDS: INSULIN ASPART PER UNIT SC SCH ×2 (07:51→11:46)
[2021-06-01] MEDS: POTASSIUM CHLORIDE 10 MEQ TABCR PO SCH (07:56)
[2021-06-01] MEDS: POLYETHYLENE (MIRALAX) 17 GM PACK PO PRN (07:56)
--- NOTE | 2021-06-01 10:02 | Pharmacy Report ---
Pharmacy Glycemic Short Note 2 - Date of Service June 01, 2021 - Glycemic Short BSG Results (Last 24 hours): 05/31/21 05/31/21 05/31/21 11:16 16:14 20:00 POC Glucose 229 H 139 H 155 H 06/01/21 07:05 POC Glucose 144 H OUTPATIENT ANTIDIABETIC REGIMEN: * Lantus 20 units SC BID * Novolog sliding scale, up to 20 units ACHS * NPH 1 unit per 1 mg while on prednisone * HbA1c = 7.7% (04/08/21) ASSESSMENT: 06/01: * Remains on Prednisone 30 mg PO every morning. * Received 77 units of insulin yesterday (20 Lantus + 20 NPH + 37 Novolog). BSGs were acceptable yesterday: [phone] mg/dL. * Fasting BSG remains stable at 144 mg/dL this AM. No adjustment to basal insulin today. * Persistent hyperglycemia at lunchtime so will tighten CR slightly this AM. 05/30: * Prednisone tapered from 40 to 30 mg po daily yesterday AM * Lantus was decreased yesterday. AM fasting good at 144 mg/dL. Will keep NPH and Lantus doses. * Post-prandial BSG's elevated yesterday after loosening CHO ratio with lunch but hesitant to tighten CHO ratio at this time due to steroid taper. Significant CHO intake yesterday noted 65-79 g CHO with meals plus a 50 g bedtime snack. 75 g with breakfast today. Will tighten CHO ratio if lunch BSG today with notable increase. PLAN FOR INPATIENT GLYCEMIC CONTROL: * Basal insulin - no change * Lantus 10 units SC BID * NPH 20 units SC AM - give with prednisone (hold if prednisone held/discontinued) * Bolus insulin - tightened CR * NovoLog per scale ACHS or Q6hrs while NPO * Goal Range: Low 110 mg/dL - High 140 mg/dL * Correction Factor: 20 mg/dL/unit * Nutritional / Prandial insulin per carb ratio of 1 unit per 4 grams CHO consumed PLAN FOR DISCHARGE: * HbA1c of 7.7% in March 2021 is at goal for this patient. * Continue home medications upon discharge.
--- NOTE | 2021-06-01 11:49 | Discharge Summary ---
Date of Service June 01, 2021 Admission HPI Per Admitting Provider 75 YOM with complicated medical history to include Aortic root graft, Mechanical AVR in 2003 (Coumadin), Migraines, seizure history, neuropathy, ILD (on prednisone and Rituxan), HLD, DMII on insulin, Parkinson disease, lumbar fusion, and BPH who presents today per recommendation of his medical pathology teacher with worsening SOB over the past three days. Patient reports over the past 5 days, he developed chest congestion, wheezing, increase in frequency of a nonproductive cough, as well as a SOB with activity over the past 3 days. He also reports chills and a decreased appetite with 1-2 episodes of nausea and generalized, mild abdominal pain. When asked about chest pain, he states he has somewhat chronic chest pain across his right and left anterior chest that can be sharp, stabbing at times but has not been worse over the past several days. 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 The pain is not positional or pleuritic, but is somewhat reproducible with chest wall palpation. He denies palpitations, edema. Patient received his Pfizer COVID-19 vaccine series, as well as his booster which he received in November 2020. Influenza vaccine also received in November 2020. Pt presented to ED with a troponin of 39.20, however EKG was unremarkable, showing normal sinus rhythm and no changes when compared with previous EKG from 05/05/21. CXR revealed bibasilar airspace opacities with possible atelectasis vs pneumonia vs aspiration as well as trace right sided pleural effusion. He was started on a Heparin drip without bolus in ED and hospital medicine was consulted for admission. Principal Diagnosis Myocarditis Discharge Exam PHYSICAL EXAM General Appearance: WDWN in NAD who is A&O x 3 HEENT: Head is normocephalic/atraumatic; Hearing grossly intact; Mucous membranes moist Neck: Supple; Trachea midline; Neg JVD Heart: RRR' mechanical valve sound Lungs: CTA in all lung [place] bilaterally; Respirations unlabored; Neg accessory muscle use Abdomen: Soft, non-tender, non-distended; Positive BS x 4 quadrants Extremities: Neg cyanosis or edema Neurological: Speech clear; Gross motor/sensory function intact; Neg focal neurologic deficits Psychiatric: Appropriate mood/affect; slightly anxious Skin: Normal Color; Warm/Dry; Scattered ecchymosis Discharge Data Allergies Allergy/AdvReac Type Severity Reaction Status Date / Time Iodinated Contrast Media Allergy Severe Anaphylaxis Verified 05/24/21 20:04 shellfish derived Allergy Severe Anaphylaxis Verified 05/24/21 20:04 tamsulosin [From Flomax] Allergy Intermediate Itching Verified 05/24/21 20:04 Tetanus Vaccines and Toxoid Allergy Unknown Unknown Verified 05/24/21 20:04 Consultations 05/24/21 20:19 ED Decision to Admit Stat 05/25/21 07:03 Consult Cardiology Routine 05/25/21 09:13 Consult Cardiac Catheterization Routine Procedures Performed Operation Date: 05/25/21 14:00 Actual Procedures p Cath, Coronaries ONLY (no LV) - Aidan Vincent MD s Cineradiography w/Routine Exam - Aidan Vincent MD s Ultrasound Vascular Access - Aidan Vincent MD Ordered Studies Chest X-Ray 05/24/21 15:59 XR chest 2V PA/lateral CLINICAL HISTORY: SOB, cough TECHNIQUE: AP and lateral frontal radiograph of the chest was obtained. Comparison: Comparison is made to chest one view 04/28/2021 FINDINGS: No lines and tubes are seen. Cardiomegaly is noted. Faint bibasilar airspace opacities are seen. There is a trace right pleural effusion. IMPRESSION: Faint bibasilar airspace opacities which may represent atelectasis, pneumonia, and/or aspiration. Trace right pleural effusion. ACT 112: Negative or not required by law. Electronically signed by: Russell Sifuentes M.D. 05/24/2021 4:59 PM Chest X-Ray 05/26/21 08:00 XR chest 1V portable CLINICAL HISTORY: follow up TECHNIQUE: Single frontal radiograph of the chest was obtained. Comparison: Comparison is made to chest 2 views 05/24/2021 FINDINGS: Stable median sternotomy wires including fractured first wire. Cardiomegaly is noted. The lungs are clear. No evidence of pleural effusion or pneumothorax. IMPRESSION: No acute chest disease. ACT 112: Negative or not required by law. Electronically signed by: Russell Sifuentes M.D. 05/26/2021 9:01 AM KUB X-Ray 05/26/21 11:50 XR KUB/Abdomen 1 view CLINICAL HISTORY: constipation, hypoactive BS TECHNIQUE: 1 view of the abdomen was obtained. Comparison: Comparison is made to abdomen radiographs 10/26/2020 FINDINGS: Posterior fixation hardware is seen. A gastric lap band is again noted. The osseous structures are grossly unremarkable. The bowel gas pattern is nonobstructive. Large stool burden is seen without evidence of inspissated stool in the rectum. IMPRESSION: There is a large stool burden without evidence of inspissated stool. ACT 112: Negative or not required by law. Electronically signed by: Russell Sifuentes M.D. 05/26/2021 12:53 PM Hospital Course (1) Myocarditis: - Viral vs autoimmune - Patient admitted with initial complaints of chest pain/shortness of breath -- chronic issues with shortness of breath/chronic steroid use with RA/polymyositis -- Hx CAD/stent to main LAD 2018 (after cath with complaints of syncope after getting radiation for his prostate ca) - Trop elevated to 39.2 on admission and maintaining around that level but starting to trend down - currently at 37 - ECHO * LV preserved with normal gradient across mechanical valve with mild paravalvular and valvular regurgitation. RV function relatively preserved - 05/25 s/p nonobstructive cath - ESR/CRP now WNL - Improvement in CP since admission but still present - Holding ASA (plan to resume this once down to once a day colchicine per cardiology); Continue Colchicine BID then convert to daily after one month (June 23) and possibly remain on this indefinitely - Continue PPI BID - It was discussed w/ patients open tenter operator, who also notes complicated history/prior neg rheum factor but positive CCP/aldolase/etc. Could be related to autoimmune nonetheless * --> rec starting 40mg prednisone daily, decrease by 10mg weekly until seen --- currently on 30 mg daily * F/U with Rheumatology - 06/06 - Completed Venofer - No further arrhythmias/VT - Continue pain control - Tramadol - he has not required much in narcotic pain m edication -- Discussed with patient - he reports in the past he got dependent on Oxycodone related to back issues. He also states at that time he started having worsening dreams to the point he would dream that he should take the whole bottle to overdose and . He was concerned with this and say he had his son remove all the pain medication. He does not endorse suicidal thoughts or plans currently but is afraid to have these type of medications in his house because he never thought he would ever consider doing something like that. However he is also afraid of worsening pain. -- Discussed with patient and his son who feel comfortable with this plan- plan only give him a couple pills to have at home at one time. He would need to have close follow-up with his family doctor if more pills are needed but he states that this eases his mind in regards to pain medication and plans to only use it sparinlgy and focus on the Voltaren/Colchicine (2) Elevated troponin: - Elevated in setting of myocarditis (3) CAD (coronary atherosclerotic disease): - Follows with Dr Chau. 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 A cardiac catheterization in April 2019 noted a patent left main stent and mild diffuse disease within the LAD, LCx, and RCA - ECHO 02/14/21 noted normal systolic function with ejection fraction 55-60% - S/P catheterization this admission - Continue statin (4) AZUL (dyspnea on exertion): - see above -Patient has history of interstitial lung dz, pulmonary function at baseline is poor. Also with PAULA s/p Venofer x 3 (300mg + 300mg + 200mg) --> fever/chills/cp following venofer --> EKG repeated, trop unchanged No further dosing but patient looking better, states sob improved and remains on room air Prednisone --> was on 12mg as attempting to taper. --> Increased to 40mg and to taper by 10mg weekly until f/u rheumatology --> DECREASED TO 30MG DAILY ON 05/29 --> f/u appt jun [address] Buckley - Remains stable on room air - Follows with Dr. Ortega for ILD; also had telemed visit with [facility] to look at other options/medications (5) Interstitial lung disease: - Patient follows with rheumatology as well as with Pulmonary ---> Continue prednisone as above ---> Had been taking 12mg daily. changed as above. (6) Chronic anemia: - chronic, macrocytic given shortness of breath/neuropathy, checked iron/B12 iron 26, normal TIBC. ferritin 27.4. Trans % sat 9 LOW --> iron deficiency anemia and given venofer x 1 05/25, 05/26, 05/27. no further dosing hgb is stable (7) Diabetes: - A1c 7.05 April 2021 - Continue home regimen (8) HLD (hyperlipidemia): - continue Atorvastatin (9) History of aortic valve replacement: - No acute needs; INR goal 2.5-3.5 - ECHO with myocarditis workup - Continue with his Coumadin 7.5 mg daily - was supratherapeutic x 2 days but now subtherapeutic and will continue home dosing with outpatient INR checks (10) Diabetic peripheral neuropathy: - Continue Gabapentin (11) Parkinsonism: - Started trial Sinemet in June - He follows with Neurology Dr Sheikh - Continue Sinemet (12) Seizure: Patient reports history of seizures- he has seen a headache specialist - Continue Keppra, Topiramate, Gabapentin - Seizure precautions -- no activity noted (13) PAF (paroxysmal atrial fibrillation): - On coumadin, also with mechanical AVR (14) Constipation: - No current issues PT/OT eval for return home with services. Arranged via [employer]. Private duty caregivers 3x/wk from 9a-1pm. Follow-up with Cardiology in 10-14 days; Rheumatology F/U; PCP F/U Home Health Attestation I certify that this patient is under my care and that I, or a physicians psychological assistant working with me, had a face to-face encounter that meets the home health [id number] encounter requirements with this patient. The encounter with the patient was in whole, or in part, for the following medical condition, which is the primary reason for home health care (list medical condition): SOB, CAD I certify that, based on my findings, the following services are medically necessary home health services: My clinical findings support the need for the above services because: Home Safety Assessment Skilled Nsg Assessment Further, I certify that my clinical findings support that this patient is homebound (i.e. absences from home require considerable and taxing effort and are for medical reasons or yarsani services or infrequently or of short duration when for other reasons) because: Poor Endurance; SOB Minimal Exertion Supportive Aid - Walker Certification for Home Health Services: Based on the above findings, I certify that this patient is confined to the home and needs intermittent senior living care, physical therapy and/or speech therapy or continues to need occupational therapy. The patient is under my care, and I have initiated the establishment of the plan of care. This patient will be followed by a physician who will periodically review the plan of care. Total Time Total Time Spent Total Time Spent (In Minutes): Spent greater than 30 minutes preparing patient for discharge. This includes discussion with patient/family, assessment, intervention, medication reconciliation, and coordination of care. Discharge Plan Discharge Items Patient Disposition: Home - Home Health Services Reason For Visit: SOB Discharge Diagnosis: Myocarditis Activity: Resume your previous activity Non-emergency contact: Primary Care Provider and Plastic Welding Machine Operator Call non-emergency contact if: you have any medication questions, your symptoms worsen and you have a fever Follow-up/Referrals: Moses Chau DO [Physician] - 06/03/21 9:50 am (Call Dr. Chau's office for follow-up in 10-14 days) Britton Shipley MD [Physician] - 06/06/21 11:00 am ([facility]) Josh Gaspar MD [Primary Care Provider] - (please call and make a follow up apt.) Diet: Carb Consistent or DM2 and Heart Healthy Addtl Attending Provider Instructions: Myocarditis: - You will continue to take Colchicine TWICE A DAY until May. On June 24 you will then take Colchicine only ONCE A DAY. -- This medication is to help the inflammation. You may likely stay on this medication to help prevent this. Your heart doctor will monitor this and address this in outpatient follow-up - Since you are on steroids, colchicine, blood thinners...we will maintain you on a acid reducing medication called Pantoprazole twice a day to help reduce risk of ulcers in the stomach and intestines - Hopefully the pain will start to subside and not require any additional pain medication. If you have more severe pain you can use Tramadol as needed. This is a narcotic pain medication so no driving if you have to take it. As discussed, we will only send you with a couple pills so if you do need more then talk with your family doctor. This way it does not give you anxiety of having these types of medications in your house. - In follow-up with you heart doctor they will trend your cardiac marker (troponin). Of course this may take a few weeks to fully return to normal. - For now, you will not take your aspirin. I spoke with your heart team and they plan to resume this when you get down to your once a day dosing of colchicine Prednisone: - Your prednisone dose was increased while in the hospital and will continue to taper this down. - Currently you will be taking 30 mg daily then on JUNE 05 start taking 20 mg daily and then you have your follow-up with the Welder 2[employer] Shift to discuss further tapering of the steroid Coumadin Level (INR) - Your Coumadin level is 2 today. So continue your Coumadin like you normally do Pending Studies at Discharge: No Stand-Alone Forms: My [facility], Smoking Cessation Medications and DC Order Prescriptions: New diclofenac sodium [Voltaren Arthritis Pain] 1 % Gel 2 g EXT QID Qty: 100 RF: 0 prednisone 10 mg Tablet 10 mg PO DIRECTED 14 Days Qty: 23 RF: 0 pantoprazole 40 mg Tablet,Delayed Release (Dr/Ec) 40 mg PO BID 30 Days Qty: 60 RF: 0 colchicine [Colcrys] 0.6 mg Tablet 0.6 mg PO BID Qty: 45 RF: 0 Continued nitroglycerin 0.4 mg tablet, sublingual 0.4 mg sublingual Q5M PRN (Reason: chest pain) Qty: 25 RF: 1 levetiracetam [Keppra] 500 mg tablet 1,000 mg PO BID Qty: 360 RF: 6 gabapentin 300 mg capsule 300 mg PO BID Qty: 180 RF: 1 albuterol sulfate [Ventolin HFA] 90 mcg/actuation Hfa Aerosol Inhaler 2 puff INHALATION Q4H PRN (Reason: Wheezing) RF: 0 cholecalciferol (vitamin D3) [Vitamin D3] 50 mcg (2,000 unit) Capsule 2,000 unit PO HS RF: 0 atorvastatin 40 mg tablet 40 mg PO HS RF: 0 sennosides [Senokot] 8.6 mg tablet 17.2 mg PO QAM RF: 0 warfarin [Jantoven] 10 mg tablet 7.5 mg PO HS RF: 0 potassium chloride [K-Tab] 10 mEq tablet extended release 10 meq PO QAM RF: 0 fexofenadine [Karlee Allergy] 180 mg Tablet 180 mg PO QAM RF: 0 calcium carbonate [Calcium 600] 600 mg calcium (1,500 mg) Tablet 600 mg PO HS RF: 0 topiramate [Topamax] 100 mg tablet 100 mg PO BID RF: 0 Trelegy Ellipta 100-62.5-25 mcg blister with device 1 inh inhalation QAM RF: 0 polyethylene glycol 3350 [Miralax] 17 gram/dose Powder 17 g PO DAILY PRN (Reason: Constipation) RF: 0 finasteride 5 mg tablet 5 mg PO QAM RF: 0 insulin aspart U-100 [Novolog Flexpen U-100 Insulin] 100 unit/mL (3 mL) insulin pen 0 unit SUBCUT ACHS RF: 0 Novolin N NPH U-100 Insulin 100 unit/mL Suspension See Rx Instructions .ROUTE .COMPLEX Qty: 10 RF: 0 Lantus Solostar U-100 Insulin 100 unit/mL (3 mL) insulin pen 20 unit SUBCUT BID Qty: 0 RF: 0 allopurinol 100 mg tablet 100 mg QPM RF: 0 furosemide [Lasix] 20 mg tablet 20 mg PO 3XWK RF: 0 carbidopa-levodopa 25-100 mg tablet 1 tab PO TID RF: 0 Discontinued prednisone 5 mg tablet 5 mg PO QAM RF: 0 aspirin [Adult Low Dose Aspirin] 81 mg tablet,delayed release (DR/EC) 81 mg PO QAM RF: 0 Discharge Orders: Discharge Order (Routine); Ordered 06/01/21 Ordered By: Rupal Donnelly Admission Data Admit Date/Time: 05/24/21 21:30 Attending Provider: Russell Ram Admit Provider: Notrh Angel Primary Care Provider: Josh Gaspar Other Providers: [place] ; Aidan Vincent ; Moses Chau ; [facility] Other Interventions: Discharge Summary Assessment (RN) Last Done: 06/01/21 12:38 Supervising Physician Co-Signing Physician Notes Attending note: patient seen and examined with Rupal Donnelly PA-C. I agree with her discharge summary. I personally reviewed the labs and imaging findings. patient's chest pain much improved, taking Ultram in AM breathing better no fever, no nausea, no diarrhea cleared for discharge by cardiology - Myocarditis: continue colchicine, follow up with cardiology, take Ultram PRN for chest pain Coding Level of Care Code D/C DAY MANAGEMENT >30 MINS Diagnoses Myocarditis I51.4 Elevated troponin R77.8 CAD (coronary atherosclerotic disease) I25.10 AZUL (dyspnea on exertion) R06.00 Interstitial lung disease J84.9 Chronic anemia D64.9 Diabetes E11.42; Z79.4 Diabetes mellitus complication detail: with polyneuropathy Diabetes mellitus complication status: with neurologic complications Diabetes mellitus intermediate accountant insulin use: with usp use Diabetes mellitus type: type 2 HLD (hyperlipidemia) E78.2 Hyperlipidemia type: mixed hyperlipidemia History of aortic valve replacement Z95.2 Diabetic peripheral neuropathy E11.42 Parkinsonism G20 Parkinsonism type: unspecified Seizure R56.9 PAF (paroxysmal atrial fibrillation) I48.0 Constipation K59.00
== END 2021-06-01 13:20 | disposition home health service (06) | DRG 287 ==
LOC: ED 15:51 → SUATTDRO 21:30 → EDINP 21:30 → 1E 05-26 18:48 → 2S 05-30 19:40
PROC: CLB.CCO (2021-05-25 14:00)

== ENCOUNTER 2021-06-30 16:59 | Inpatient (IN) ==
--- NOTE | 2021-06-30 17:27 | Emergency Department Note ---
Impression & Plan Retrosternal chest pain, Generalized weakness, Nasal congestion, Elevated troponin ED Provider Note INFORMANT: Patient ED PROVIDER(S): Cas Elizabeth MD CHIEF COMPLAINT: Chest pain PLAN: Disposition: Admitted Condition: Good Outpatient prescription management: none Referral: None MEDICAL DECISION MAKING: Presented because of chest pain. Has a history of myocarditis. Blood work and imaging were performed. The patient's chest x-ray was unremarkable. The patient has what appears to be an elevated troponin. Given his history it is difficult to tell if this is an acute issue. Patient does have a supratherapeutic INR. This would make thromboembolic disease unlikely. Rest hi s blood work is unremarkable. Patient had a consultation placed with Dr. Vora of cardiology. He stated in light of the patient's history and abnormal blood work he would need to be admitted to the hospital for serial troponins and echo with formal cardiology consultation. Consultation was made with Dr. Shayan Mims of the [facility] service. Patient was evaluated in the ER for further management. Triage Nursing notes reviewed and agree them. Vital Signs: reviewed and remarkable for no significant abnormalities Differential diagnosis: Covid, Cardiac ischemia, aortic dissection, pulmonary embolism, pneumothorax, pneumonia, pericarditis, myocarditis, esophageal rupture, GERD, cholecystitis, pancreatitis, musculoskeletal, as well as other pathologies. Diagnostics interpreted by me: ECG: Twelve-lead ECG reveals a sinus rhythm with short NM and PVCs at 72 bpm. Low voltage QRS. Primary T wave abnormality noted laterally. Cardiac Monitoring: Cardiac monitoring ordered by me: The patient was placed on continuous cardiac monitoring and observed. It revealed a normal sinus rhythm at 66 beats per minute without evidence of dysrhythmia. Imaging studies: Chest x-ray. Findings: A chest x-ray was performed and revealed no pneumothorax, effusion, infiltrate, pulmonary edema, free air under the diaphragm, or wide me diastinum. Atelectasis noted at the bases. Impression: No acute disease. HPI: The patient is a 76 year old male who presents to the Emergency Room with complaints of retrosternal chest pain. This started early today and is chronic, recurring problem for the patient. The patient also notes the following associated symptoms, generalized weakness, nasal congestion for a week. The patient has taken oxycodone for relieving factors. Current pain is rated as 5/10. He notes having daily chest pains and hx of myocarditis. He is also anticoagulated on coumadin for an AVR. Currently taking penicillin for dental work. Pt denies LOC, headache, fevers, chills, diaphoresis, visual changes, neck pain, chest pain, breathing difficulties, nausea, vomiting, abdominal pain, back pain, melena, hematochezia, urinary symptoms, numbness, weakness, lymphadenopathy, rash, or other complaints. ROS: See above HPI for pertinent positives & negatives. A total of 10 systems reviewed and were otherwise negative. PAST MEDICAL HISTORY:See Below , Myocarditis with Markedly elevated troponin, aortic dissection with repair of his a sending aorta, CAD, Multiple TIAs, Chronic anticoagulation with a goal INR of 2-1/2-3-1/2 with 81 mg of aspirin given his mechanical aortic valve and chronic atrial fibrillation PAST SURGICAL HISTORY:See Below, AVR, History of a left main stent in Feb FAMILY HISTORY:See Below SOCIAL HISTORY:See Below, retired HOME MEDICATIONS:See Below ALLERGIES:See Below VITALS:See Below PHYSICAL EXAMINATION: GENERAL: Awake, alert, well-appearing, in no distress HENT: Normocephalic, atraumatic. Oropharynx unremarkable. EYES: Normal conjunctiva. Sclera non-icteric. NECK: Inspection normal. Non-tender. Supple. No nuchal rigidity. FROM. No masses. RESPIRATORY: Clear to auscultation. No wheezes. No rales. Normal respiratory effort. CARDIAC: Normal rate. Normal rhythm. No murmurs. No rubs. Extremities warm and well perfused. Pulses equal. No JVD. GI: Soft, non-distended. No tenderness to palpation. No rebound or guarding. No masses. RECTAL: Deferred. MUSCULOSKELETAL: Atraumatic. Chest examination reveals no tenderness. The back is symmetrical on inspection without obvious abnormality. There is no CVA tenderness to palpation. No joint edema. LOWER EXTREMITIES: Calves are equal size bilaterally and non-tender. 1+ edema. Chronic venous discoloration. NEURO: Normal sensorium. No sensory or motor deficits noted. SKIN: No rash or jaundice noted. Cas Elizabeth MD Past Med/Surg History Medical History Abnormal CT scan, chest Abnormal CT scan, chest Acute hyperglycemia Acute left-sided muscle weakness Anemia CAD (coronary artery disease) Chest pain Chronic pulmonary aspiration Dehydration Diabetes Dyspnea on exertion Fall Fall Fluid overload HLD (hyperlipidemia) Hypoxia Interstitial lung disease Interstitial lung disease Interstitial lung disease Interstitial lung disease due to connective tissue disease Lung nodule Neurogenic claudication Nocturnal hypoxemia Nocturnal hypoxia Palliative care encounter Polymyositis Polymyositis Polymyositis Prostate cancer s/p XRT Rheumatoid arthritis Rheumatoid arthritis Shortness of breath Stroke-like symptom 12/2019, w/ blurry vision and dysarthria. mild R sided wkness. attending outpatient physical therapy w/ good improvement in strength (5+/5 strength of all 4 extremities as of 05/28/20) Subtherapeutic international normalized ratio (INR) Supratherapeutic INR Supratherapeutic INR Thoracic ascending aortic aneurysm s/p repair Weakness Weakness Surgical History H/O hernia repair History of aortic valve replacement mechanical History of cholecystectomy History of fusion of cervical spine History of gastric bypass lap band History of heart artery stent History of lung biopsy 2019 History of partial nephrectomy Family History Mother , age 87 of pulmonary issues Rheumatoid arthritis Father , in his mid 80s of a stroke Stroke Other Coronary heart disease Social History Smoking Status: Never smoker Second Hand Exposure: No; Hx Alcohol Use: No Hx Substance Use: No Preferred Language: Danish Communication Ability: Effective Hearing Ability: Hard of Hearing Collections Assistant Required: No Beliefs That Will Affect Care: None marital status: / Current Living Situation: Alone Current Living Situation Comment: Personal care comes in 3 times a week and son lives next door current occupational status: retired 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 How many Children do You have: 1 Feels Safe at Home: Yes Assistive Devices: Oxygen - at Night and Walker Allergies Allergies Allergy/AdvReac Type Severity Reaction Status Date / Time Iodinated Contrast Media Allergy Severe Anaphylaxis Verified 06/30/21 19:54 shellfish derived Allergy Severe Anaphylaxis Verified 06/30/21 19:54 tamsulosin [From Flomax] Allergy Intermediate Itching Verified 06/30/21 19:54 Tetanus Vaccines and Toxoid Allergy Unknown Unknown Verified 06/30/21 19:54 Home Meds Home Medications Medication Instructions Recorded Confirmed albuterol sulfate 90 mcg/actuation 2 puff INHALATION Q4H PRN 01/20/20 06/30/21 aerosol inhaler (Ventolin HFA) cholecalciferol (vitamin D3) 50 2,000 unit PO HS 01/20/20 06/30/21 mcg (2,000 unit) capsule (Vitamin D3) atorvastatin 40 mg tablet 40 mg PO HS 05/28/20 06/30/21 insulin aspart U-100 100 unit/mL 0 unit SUBCUT ACHS 09/04/20 06/30/21 (3 mL) subcutaneous pen (Novolog Flexpen U-100 Insulin aspart) sennosides 8.6 mg tablet (Senokot) 17.2 mg PO QAM 10/19/20 06/30/21 calcium carbonate 600 mg calcium 600 mg PO HS 02/11/21 06/30/21 (1,500 mg) tablet (Calcium) fexofenadine 180 mg tablet 180 mg PO QAM 02/11/21 06/30/21 (Karlee Allergy) fluticasone fur. 100 mcg-umeclid 1 inh INHALATION QAM 02/11/21 06/30/21 62.5 mcg-vilant 25 mcg inhalat.powder (Trelegy Ellipta) topiramate 100 mg tablet (Topamax) 100 mg PO BID 02/11/21 06/30/21 warfarin 10 mg tablet (Jantoven) 7.5 mg PO HS 02/11/21 06/30/21 allopurinol 100 mg tablet 100 mg QPM 04/10/21 06/30/21 finasteride 5 mg tablet 5 mg PO QAM 04/28/21 06/30/21 polyethylene glycol 3350 17 17 g PO DAILY PRN 04/28/21 06/30/21 gram/dose oral powder (Miralax) carbidopa 25 mg-levodopa 100 mg 1 tab PO TID 05/24/21 06/30/21 tablet furosemide 20 mg tablet (Lasix) 20 mg PO 3XWK 05/24/21 06/30/21 dulaglutide 1.5 mg/0.5 mL 1.5 mg SUBCUT WK 06/30/21 06/30/21 subcutaneous pen injector (Trulicity) leflunomide 10 mg tablet 10 mg PO QAM 06/30/21 06/30/21 levetiracetam 500 mg tablet 750 mg PO HS 06/30/21 06/30/21 levetiracetam 500 mg tablet 1,000 mg PO QAM 06/30/21 06/30/21 (Keppra) oxycodone 10 mg tablet 10 mg PO HS 06/30/21 06/30/21 pantoprazole 40 mg tablet,delayed 40 mg PO BID PRN 06/30/21 06/30/21 release penicillin V potassium 500 mg 500 mg PO QID 06/30/21 06/30/21 tablet prednisone 10 mg tablet 10 mg PO DAILY 06/30/21 06/30/21 Previous Rx's Medication Instructions Recorded gabapentin 300 mg capsule 300 mg PO BID #180 cap 12/28/20 insulin NPH isoph U-100 human 100 See Rx Instructions .ROUTE 01/12/21 unit/mL subcutaneous suspension .COMPLEX #10 ml (Novolin N NPH U-100 Insulin isophane) insulin glargine 100 unit/mL (3 20 unit SUBCUT BID #0 ml 01/12/21 mL) subcutaneous pen (Lantus Solostar U-100 Insulin) nitroglycerin 0.4 mg sublingual 0.4 mg SUBLINGUAL Q5M PRN #25 tab 05/05/21 tablet colchicine 0.6 mg tablet (Colcrys) 0.6 mg PO BID #45 tab 06/01/21 diclofenac sodium 1 % topical gel 2 g EXT QID #100 g 06/01/21 (Voltaren Arthritis Pain) Results & Data (ED) Vital Signs Vital Signs - 24 hr 06/30/21 17:08 06/30/21 17:30 06/30/21 17:32 Temperature 36.7 C Temperature Source Oral Pulse Rate 84 72 95 H Pulse Rate [Apical] Pulse Rate from SpO2 Sensor 72 Respiratory Rate 16 10 L 18 Respiratory Effort / Characteristics Non-Labored Spontaneous Respiratory Depth Normal Respiratory Pattern Regular Blood Pressure 152/88 H Blood Pressure [Right Arm] Blood Pressure Mean 109 Blood Pressure Mean [Right Arm] Blood Pressure Position Lying Pulse Oximetry 94 100 Oxygen Delivery Method Room Air Oxygen Flow Rate 3 Sepsis Recent Fever Within 48 Hours No Sepsis New/Unexplained Change in Mental Status No Sepsis Action Taken by Nursing No Action Required Oxygen Flow Rate - Titration 0 Pulse Oximetry Post Tiitration 100 06/30/21 18:00 06/30/21 18:30 06/30/21 19:07 Temperature Temperature Source Pulse Rate 73 Pulse Rate [Apical] 64 Pulse Rate from SpO2 Sensor Respiratory Rate 16 12 20 Respiratory Effort / Characteristics Respiratory Depth Respiratory Pattern Blood Pressure Blood Pressure [Right Arm] 138/84 Blood Pressure Mean Blood Pressure Mean [Right Arm] 102 Blood Pressure Position Pulse Oximetry 99 Oxygen Delivery Method Room Air Oxygen Flow Rate Sepsis Recent Fever Within 48 Hours Sepsis New/Unexplained Change in Mental Status Sepsis Action Taken by Nursing Oxygen Flow Rate - Titration Pulse Oximetry Post Tiitration 06/30/21 21:14 Temperature Temperature Source Pulse Rate Pulse Rate [Apical] 66 Pulse Rate from SpO2 Sensor Respiratory Rate 20 Respiratory Effort / Characteristics Respiratory Depth Respiratory Pattern Blood Pressure Blood Pressure [Right Arm] 150/88 H Blood Pressure Mean Blood Pressure Mean [Right Arm] 108 Blood Pressure Position Pulse Oximetry 97 Oxygen Delivery Method Room Air Oxygen Flow Rate Sepsis Recent Fever Within 48 Hours Sepsis New/Unexplained Change in Mental Status Sepsis Action Taken by Nursing Oxygen Flow Rate - Titration Pulse Oximetry Post Tiitration Laboratory Data Result diagrams: 06/30/21 17:16 06/30/21 17:16 Lab Results 06/30/21 06/30/21 06/30/21 Range/Units 17:16 17:16 17:16 WBC 4.87 (4.8-10.8) K/uL RBC 4.49 L (4.7-6.1) M/uL Hgb 12.0 L (14.0-18.0) g/dL Hct 37.8 L (42-52) % MCV 84.2 (80-100) fL MCH 26.7 (25-34) pg MCHC 31.7 L (32-36) g/dL RDW Std Deviation 60.4 H (36.4-46.3) fL RDW Coeff of Lianne 19.5 H (11.5-14.5) % Plt Count 156 (130-400) K/uL MPV 9.3 (7.4-10.4) fL Immature Gran % (Auto) 0.4 % Neut % (Auto) 73.3 % Lymph % (Auto) 17.9 % Harmon % (Auto) 6.8 % Eos % (Auto) 1.4 % Baso % (Auto) 0.2 % Neut # (Auto) 3.57 (1.4-6.5) K/uL Lymph # (Auto) 0.87 L (1.2-3.4) K/uL Harmon # (Auto) 0.33 (0.11-0.59) K/uL Eos # (Auto) 0.07 (0-0.5) K/uL Baso # (Auto) 0.01 (0-0.2) K/uL Immature Gran # (Auto) 0.02 (0.00-0.02) K/uL ESR (0-20) mm/hr PT 47.5 H (9.0-12.0) Seconds INR 4.9 H (0.9-1.1) APTT 46.8 H* (21.0-31.0) Seconds PTT Ratio 1.7 Sodium 140 (136-145) mmol/L Potassium 3.2 L (3.5-5.1) mmol/L Chloride 111 H (98-107) mmol/L Carbon Dioxide 22 (21-32) mmol/L Anion Gap 7 (3-11) BUN 34 H (6-23) mg/dl Creatinine 1.08 (0.6-1.4) mg/dl Est Cr Clr Drug Dosing 74.5 ml/min Est GFR ( Amer) 76.9 ml/min Est GFR (Non-Af Amer) 66.3 ml/min BUN/Creatinine Ratio 31.5 H (10-20) Glucose 122 H (70-99(Fasting)) mg/dl Calcium 7.6 L (8.5-10.1) mg/dl Magnesium (1.7-2.4) mg/dl Total Bilirubin 0.3 (0.2-1.0) mg/dl AST 17 (13-39) U/L ALT 20 (7-52) U/L Alkaline Phosphatase 62 (34-104) U/L Troponin I 30.77 H* (0-0.04) ng/ml C-Reactive Protein (0-0.5) mg/dl Total Protein 5.5 L (6.0-8.3) gm/dl Albumin 3.3 L (3.4-5.0) gm/dl Globulin 2.2 L (2.5-4.0) gm/dl Albumin/Globulin Ratio 1.5 (0.9-2) Lipase 13 (11-82) U/L SARS-CoV-2, RNA, NAAT (NEGATIVE) 06/30/21 06/30/21 06/30/21 Range/Units 17:16 17:16 17:16 WBC (4.8-10.8) K/uL RBC (4.7-6.1) M/uL Hgb (14.0-18.0) g/dL Hct (42-52) % MCV (80-100) fL MCH (25-34) pg MCHC (32-36) g/dL RDW Std Deviation (36.4-46.3) fL RDW Coeff of Lianne (11.5-14.5) % Plt Count (130-400) K/uL MPV (7.4-10.4) fL Immature Gran % (Auto) % Neut % (Auto) % Lymph % (Auto) % Harmon % (Auto) % Eos % (Auto) % Baso % (Auto) % Neut # (Auto) (1.4-6.5) K/uL Lymph # (Auto) (1.2-3.4) K/uL Harmon # (Auto) (0.11-0.59) K/uL Eos # (Auto) (0-0.5) K/uL Baso # (Auto) (0-0.2) K/uL Immature Gran # (Auto) (0.00-0.02) K/uL ESR 32 H (0-20) mm/hr PT (9.0-12.0) Seconds INR (0.9-1.1) APTT (21.0-31.0) Seconds PTT Ratio Sodium (136-145) mmol/L Potassium (3.5-5.1) mmol/L Chloride (98-107) mmol/L Carbon Dioxide (21-32) mmol/L Anion Gap (3-11) BUN (6-23) mg/dl Creatinine (0.6-1.4) mg/dl Est Cr Clr Drug Dosing ml/min Est GFR ( Amer) ml/min Est GFR (Non-Af Amer) ml/min BUN/Creatinine Ratio (10-20) Glucose (70-99(Fasting)) mg/dl Calcium (8.5-10.1) mg/dl Magnesium 1.9 (1.7-2.4) mg/dl Total Bilirubin (0.2-1.0) mg/dl AST (13-39) U/L ALT (7-52) U/L Alkaline Phosphatase (34-104) U/L Troponin I (0-0.04) ng/ml C-Reactive Protein 1.45 H (0-0.5) mg/dl Total Protein (6.0-8.3) gm/dl Albumin (3.4-5.0) gm/dl Globulin (2.5-4.0) gm/dl Albumin/Globulin Ratio (0.9-2) Lipase (11-82) U/L SARS-CoV-2, RNA, NAAT (NEGATIVE) 06/30/21 Range/Units 17:20 WBC (4.8-10.8) K/uL RBC (4.7-6.1) M/uL Hgb (14.0-18.0) g/dL Hct (42-52) % MCV (80-100) fL MCH (25-34) pg MCHC (32-36) g/dL RDW Std Deviation (36.4-46.3) fL RDW Coeff of Lianne (11.5-14.5) % Plt Count (130-400) K/uL MPV (7.4-10.4) fL Immature Gran % (Auto) % Neut % (Auto) % Lymph % (Auto) % Harmon % (Auto) % Eos % (Auto) % Baso % (Auto) % Neut # (Auto) (1.4-6.5) K/uL Lymph # (Auto) (1.2-3.4) K/uL Harmon # (Auto) (0.11-0.59) K/uL Eos # (Auto) (0-0.5) K/uL Baso # (Auto) (0-0.2) K/uL Immature Gran # (Auto) (0.00-0.02) K/uL ESR (0-20) mm/hr PT (9.0-12.0) Seconds INR (0.9-1.1) APTT (21.0-31.0) Seconds PTT Ratio Sodium (136-145) mmol/L Potassium (3.5-5.1) mmol/L Chloride (98-107) mmol/L Carbon Dioxide (21-32) mmol/L Anion Gap (3-11) BUN (6-23) mg/dl Creatinine (0.6-1.4) mg/dl Est Cr Clr Drug Dosing ml/min Est GFR ( Amer) ml/min Est GFR (Non-Af Amer) ml/min BUN/Creatinine Ratio (10-20) Glucose (70-99(Fasting)) mg/dl Calcium (8.5-10.1) mg/dl Magnesium (1.7-2.4) mg/dl Total Bilirubin (0.2-1.0) mg/dl AST (13-39) U/L ALT (7-52) U/L Alkaline Phosphatase (34-104) U/L Troponin I (0-0.04) ng/ml C-Reactive Protein (0-0.5) mg/dl Total Protein (6.0-8.3) gm/dl Albumin (3.4-5.0) gm/dl Globulin (2.5-4.0) gm/dl Albumin/Globulin Ratio (0.9-2) Lipase (11-82) U/L SARS-CoV-2, RNA, NAAT NEGATIVE (NEGATIVE) Administered Medications Discontinued Medications Potassium Chloride (Potassium Chloride Crtab 20 Meq Tabcr) 40 meq PO NOW STA Stop: 06/30/21 19:56 Last Admin: 06/30/21 20:04 Dose: 40 meq Documented by: [id number] Imaging Data Radiologist's Impression: Chest X-Ray 06/30/21 17:16 XR chest 1V portable CLINICAL HISTORY: Atypical chest pain TECHNIQUE: Single frontal radiograph of the chest was obtained. Comparison: Comparison is made to chest one view 05/26/2021 FINDINGS: Stable median sternotomy wires are seen. Cardiomegaly is noted. Faint bibasilar airspace opacities are seen. No evidence of pleural effusion or pneumothorax. IMPRESSION: Faint bibasilar airspace opacities which may represent atelectasis, pneumonia, and/or aspiration. ACT 112: Negative or not required by law. Electronically signed by: Russell Sifuentes M.D. 06/30/2021 5:38 PM Discharge Plan Visit Data Chief Complaint: Chest Pain Stated Complaint: chest pain ED Provider: Cas Elizabeth Discharge Problem: Retrosternal chest pain, Generalized weakness, Nasal congestion, Elevated troponin Patient Disposition: Admitted As Inpatient Discharge Instructions Interventions: ED Discharge Assessment Last Done: 06/30/21 21:56
[2021-06-30 17:29] LABS: Basophils # (auto) 0.01 K/uL (0-0.2); Basophils % (auto) 0.2 %; Eosinophils # (auto) 0.07 K/uL (0-0.5); Eosinophils % (auto) 1.4 %; Hematocrit (blood only) 37.8 % (42-52); Immature Granulocytes # (auto) 0.02 K/uL (0.00-0.02); Immature Granulocytes % (auto) 0.4 %; Lymphocytes # (auto) 0.87 K/uL (1.2-3.4); Lymphocytes % (auto) 17.9 %; Mean Corpuscular Hemoglobin 26.7 pg (25-34); Mean Corpuscular Hgb Conc 31.7 g/dL (32-36); Mean Corpuscular Volume 84.2 fL (80-100); Mean Platelet Volume 9.3 fL (7.4-10.4); Monocytes # (auto) 0.33 K/uL (0.11-0.59); Monocytes % (auto) 6.8 %; Neutrophils # (auto) 3.57 K/uL (1.4-6.5); Neutrophils % (auto) 73.3 %; Platelet Count 156 K/uL (130-400); RDW Coefficient of Variation 19.5 % (11.5-14.5); RDW Standard Deviation 60.4 fL (36.4-46.3); Red Blood Count 4.49 M/uL (4.7-6.1); White Blood Count 4.87 K/uL (4.8-10.8)
--- NOTE | 2021-06-30 17:40 | XRay Report ---
XR chest 1V portable CLINICAL HISTORY: Atypical chest pain TECHNIQUE: Single frontal radiograph of the chest was obtained. Comparison: Comparison is made to chest one view 05/26/2021 FINDINGS: Stable median sternotomy wires are seen. Cardiomegaly is noted. Faint bibasilar airspace opacities ar e seen. No evidence of pleural effusion or pneumothorax. IMPRESSION: Faint bibasilar airspace opacities which may represent atelectasis, pneumonia, and/or aspiration. ACT 112: Negative or not required by law. Electronically signed by: Russell Sifuentes M.D. 06/30/2021 5:38 PM
[2021-06-30 17:53] LABS: INR 4.9 (0.9-1.1); Partial Thromboplastin Ratio 1.7; Prothrombin Time 47.5 Seconds (9.0-12.0)
[2021-06-30 17:59] LABS: Partial Thromboplastin Time 46.8 Seconds (21.0-31.0)
[2021-06-30 18:10] LABS: Albumin Globulin Ratio 1.5 (0.9-2); Albumin Level 3.3 gm/dl (3.4-5.0); BUN Creatinine Ratio 31.5 (10-20); Bilirubin,Total 0.3 mg/dl (0.2-1.0); Calcium 7.6 mg/dl (8.5-10.1); Creatinine Clr Calc Pharmacy 74.5 ml/min; Est GFR (African American) 76.9 ml/min; Est GFR (Non-African American) 66.3 ml/min; Globulin 2.2 gm/dl (2.5-4.0); Potassium 3.2 mmol/L (3.5-5.1); Total Protein 5.5 gm/dl (6.0-8.3)
[2021-06-30 18:13] LABS: Troponin I 30.77 ng/ml (0-0.04)
[2021-06-30] MEDS ORDERED: POTASSIUM CHLORIDE CRTAB 20 MEQ TABCR PO STA (19:55)
--- NOTE | 2021-06-30 20:11 | History & Physical Report ---
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 Patient does not report new onset chest pain/tightness or palpitations, however does report URI symptoms this week, specifically nasal congestion. Recently started on Leflunomide by rheumatology. Patient is not hypoxic, no trauma, no ectopy, and no recent new vaccines. -Patient started on colchicine BID on last discharge, continue this. ASA was being held, will defer to cardiology whether or not to restart this. -Trop 30, will repeat troponin and EKG in AM. -ESR and CRP elevated, CMV, coxsackie, and parvovirus labs ordered, pending. -Repeat CBC and troponin in AM. -Cardiology consulted, appreciate their recommendations. (2) Hypokalemia: Plan: -3.2 in ED, 40 mEq given. -Mg 1.9, no need to replete at this time. -Recheck BMP in AM. (3) CAD (coronary atherosclerotic disease): Plan: - Follows with Dr Chau. 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 A cardiac catheterization in April 2019 noted a patent left main stent and mild diffuse disease within the LAD, LCx, and RCA - ECHO 02/14/21 noted normal systolic function with ejection fraction 55-60% - S/P catheterization last admission w/o obstruction. - Continue statin (4) Chronic anemia: Plan: -H/H stable and improved from last admission on 05/24. (5) Interstitial lung disease: Plan: -Patient follows with rheumatology as well as with pulmonary. -Continue prednisone 10 mg per day w/ 10 units insulin (1 unite per mg of prednisone per pulm) -Leflunomide was recently added, patient states he has been feeling worse since it was started. Medication is not known to cause myocarditis but is known to cause vasculitis. Could consider stopping this medication. (6) Diabetes: Plan: -Reports he has cut back on insulin doses due to decreased appetite and low sugars in 40s several times in the evenings. -Sliding Scale Aspart with 10 units insulin in AM while on 10 mg prednisone. -CC/heart healthy diet -Continue Gabapentin for neuropathy. (7) HLD (hyperlipidemia): Plan: -continue Atorvastatin 40 mg daily. (8) Parkinsonism: Plan: -He follows with Neurology Dr Sheikh -Continue Sinemet 25/100 (9) History of seizures: Plan: -Patient reports history of seizures- he has seen a headache specialist -Continue Keppra, Continue Topiramate, Continue Gabapentin -Seizure precautions. Plan: -Observation to [facility] tele. -DVT ppx with SCDs and Coumadin. -Full Code. History of Present Illness Chief Complaint: chest pain Primary Care Provider: Josh Gaspar MD 76 YOM with complicated medical history to include Aortic root graft, Mechanical AVR in 2003 (Coumadin), seizure history, neuropathy, ILD , HLD, DMII on insulin, Parkinson disease, lumbar fusion, and BPH who presents today per retrosternal chest pain. This started early today and is chronic, recurring problem for the patient. The patient also notes generalized weakness for a week. The patient has taken oxycodone with minimal relief. Current pain is rated as 5/10. He notes having daily chest pains and hx of myocarditis, most recently admitted and treated for this at the end of April. He is also anticoagulated on coumadin for an AVR. Recently took penicillin for dental work. Pt denies LOC, headache, fevers, chills, diaphoresis, visual changes, neck pain, breathing difficulties, nausea, vomiting, abdominal pain, back pain, melena, hematochezia, urinary symptoms, numbness, weakness, lymphadenopathy, rash, or other complaints. Patient received his Pfizer COVID-19 vaccine series, as well as his booster which he received in November 2020. Influenza vaccine also received in November 2020. Troponin elevated at 30.77, CRP and ESR elevated, no leukocytosis, afebrile. Glucose 122, BUN 34 (baseline), K 3.2 (40 KCl given in ED), PTT 46.8, INR 4.9 , PT 47.5, Hgb 12 (baseline) other labs wnl. CXR--> Faint bibasilar airspace opacities which may represent atelectasis, pneumonia, and/or aspiration. Same findings noted on CXR from 05/24 admission. Allergies Allergy/AdvReac Type Severity Reaction Status Date / Time Iodinated Contrast Media Allergy Severe Anaphylaxis Verified 06/30/21 19:54 shellfish derived Allergy Severe Anaphylaxis Verified 06/30/21 19:54 tamsulosin [From Flomax] Allergy Intermediate Itching Verified 06/30/21 19:54 Tetanus Vaccines and Toxoid Allergy Unknown Unknown Verified 06/30/21 19:54 Home Medications Medication Instructions Recorded Confirmed Type albuterol sulfate 90 mcg/actuation 2 puff INHALATION Q4H PRN 01/20/20 06/30/21 History aerosol inhaler (Ventolin HFA) cholecalciferol (vitamin D3) 50 2,000 unit PO HS 01/20/20 06/30/21 History mcg (2,000 unit) capsule (Vitamin D3) atorvastatin 40 mg tablet 40 mg PO HS 05/28/20 06/30/21 History insulin aspart U-100 100 unit/mL 0 unit SUBCUT ACHS 09/04/20 06/30/21 History (3 mL) subcutaneous pen (Novolog Flexpen U-100 Insulin aspart) sennosides 8.6 mg tablet (Senokot) 17.2 mg PO QAM 10/19/20 06/30/21 History gabapentin 300 mg capsule 300 mg PO BID #180 cap 12/28/20 06/30/21 Rx insulin NPH isoph U-100 human 100 See Rx Instructions .ROUTE 01/12/21 06/30/21 Rx unit/mL subcutaneous suspension .COMPLEX #10 ml (Novolin N NPH U-100 Insulin isophane) insulin glargine 100 unit/mL (3 20 unit SUBCUT BID #0 ml 01/12/21 06/30/21 Rx mL) subcutaneous pen (Lantus Solostar U-100 Insulin) calcium carbonate 600 mg calcium 600 mg PO HS 02/11/21 06/30/21 History (1,500 mg) tablet (Calcium) fexofenadine 180 mg tablet 180 mg PO QAM 02/11/21 06/30/21 History (Karlee Allergy) fluticasone fur. 100 mcg-umeclid 1 inh INHALATION QAM 02/11/21 06/30/21 History 62.5 mcg-vilant 25 mcg inhalat.powder (Trelegy Ellipta) topiramate 100 mg tablet (Topamax) 100 mg PO BID 02/11/21 06/30/21 History warfarin 10 mg tablet (Jantoven) 7.5 mg PO HS 02/11/21 06/30/21 History allopurinol 100 mg tablet 100 mg QPM 04/10/21 06/30/21 History finasteride 5 mg tablet 5 mg PO QAM 04/28/21 06/30/21 History polyethylene glycol 3350 17 17 g PO DAILY PRN 04/28/21 06/30/21 History gram/dose oral powder (Miralax) nitroglycerin 0.4 mg sublingual 0.4 mg SUBLINGUAL Q5M PRN #25 tab 05/05/21 06/30/21 Rx tablet carbidopa 25 mg-levodopa 100 mg 1 tab PO TID 05/24/21 06/30/21 History tablet furosemide 20 mg tablet (Lasix) 20 mg PO 3XWK 05/24/21 06/30/21 History colchicine 0.6 mg tablet (Colcrys) 0.6 mg PO BID #45 tab 06/01/21 06/30/21 Rx diclofenac sodium 1 % topical gel 2 g EXT QID #100 g 06/01/21 06/30/21 Rx (Voltaren Arthritis Pain) dulaglutide 1.5 mg/0.5 mL 1.5 mg SUBCUT WK 06/30/21 06/30/21 History subcutaneous pen injector (Trulicity) leflunomide 10 mg tablet 10 mg PO QAM 06/30/21 06/30/21 History levetiracetam 500 mg tablet 750 mg PO HS 06/30/21 06/30/21 History levetiracetam 500 mg tablet 1,000 mg PO QAM 06/30/21 06/30/21 History (Keppra) oxycodone 10 mg tablet 10 mg PO HS 06/30/21 06/30/21 History pantoprazole 40 mg tablet,delayed 40 mg PO BID PRN 06/30/21 06/30/21 History release penicillin V potassium 500 mg 500 mg PO QID 06/30/21 06/30/21 History tablet prednisone 10 mg tablet 10 mg PO DAILY 06/30/21 06/30/21 History Past Med/Surg History Medical History Abnormal CT scan, chest Abnormal CT scan, chest Acute hyperglycemia Acute left-sided muscle weakness Anemia CAD (coronary artery disease) Chest pain Chronic pulmonary aspiration Dehydration Diabetes Dyspnea on exertion Fall Fall Fluid overload HLD (hyperlipidemia) Hypoxia Interstitial lung disease Interstitial lung disease Interstitial lung disease Interstitial lung disease due to connective tissue disease Lung nodule Neurogenic claudication Nocturnal hypoxemia Nocturnal hypoxia Palliative care encounter Polymyositis Polymyositis Polymyositis Prostate cancer s/p XRT Rheumatoid arthritis Rheumatoid arthritis Shortness of breath Stroke-like symptom 12/2019, w/ blurry vision and dysarthria. mild R sided wkness. attending outpatient physical therapy w/ good improvement in strength (5+/5 strength of all 4 extremities as of 05/28/20) Subtherapeutic international normalized ratio (INR) Supratherapeutic INR Supratherapeutic INR Thoracic ascending aortic aneurysm s/p repair Weakness Weakness Surgical History H/O hernia repair History of aortic valve replacement mechanical History of cholecystectomy History of fusion of cervical spine History of gastric bypass lap band History of heart artery stent History of lung biopsy 2019 History of partial nephrectomy Family History Mother , age 87 of pulmonary issues Rheumatoid arthritis Father , in his mid 80s of a stroke Stroke Other Coronary heart disease Social History Smoking Status: Never smoker Second Hand Exposure: No; Hx Alcohol Use: No Hx Substance Use: No Preferred Language: Guamanian Communication Ability: Effective Hearing Ability: Hard of Hearing Maple Sugar Maker Required: No Beliefs That Will Affect Care: None marital status: / Current Living Situation: Alone Current Living Situation Comment: lives alone in a one storry house. 2 steps to get in. son lives next door. 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 How many Children do You have: 1 Feels Safe at Home: Yes Assistive Devices: Hearing Aid - Bilateral and Oxygen - at Night Review of Systems Review of Systems: Review of systems: Constitutional: Reports generalized weakness and chills; No fever, sweats Eyes: No diplopia, no worsening or blurred vision ENT: normal hearing, no trouble swallowing Respiratory: repots intermittent SOB; No cough, sputum Cardiovascular: stabbing chest pain without radiation, chest tightness or palpitations Abdomen: No pain, nausea, vomiting, diarrhea or constipation Musculoskeletal: No joint pain, calf pain, swelling Neurologic: No focal weakness, numbness/tingling, or balance problems Psychiatric: No anxiety or depression Skin: No rash or itch Physical Exam Physical Exam: General: awake, alert, no apparent distress Head: Normocephalic, atraumatic ENT: PERRL, EOMI, no pharyngeal exudate, mucous membranes moist Chest: expiratory wheezes heard throughout, on RA Cardiac: Regular rate and rhythm, no murmur, no JVD, normal peripheral pulses, good capillary refill Abdominal: NABS x 4 quadrants, soft, nontender to palpation, no rebound, guarding or tenderness Extremities: Normal inspection, no peripheral edema or erythema, calfs nontender to palpation Psych: Normal mood and affect Neuro: AAO x 3, strength intact bilaterally and rated 5/5, no motor deficits, speech is clear, no peripheral sensory deficits Skin: no rash or erythema Results & Data Results & Data ([facility]) Vital Signs (Past 12 Hours) Vital Signs Temp Pulse Pulse Resp BP BP Pulse Ox 06/30/21 19:07 64 20 138/84 99 06/30/21 18:30 73 12 06/30/21 18:00 16 06/30/21 17:32 36.7 C 95 H 18 152/88 H 100 06/30/21 17:30 72 10 L 94 06/30/21 17:08 84 16 Laboratory Results Abnormal lab results 06/30/21 06/30/21 06/30/21 Range/Units 17:16 17:16 17:16 RBC 4.49 L (4.7-6.1) M/uL Hgb 12.0 L (14.0-18.0) g/dL Hct 37.8 L (42-52) % MCHC 31.7 L (32-36) g/dL RDW Std Deviation 60.4 H (36.4-46.3) fL RDW Coeff of Lianne 19.5 H (11.5-14.5) % Lymph # (Auto) 0.87 L (1.2-3.4) K/uL PT 47.5 H (9.0-12.0) Seconds INR 4.9 H (0.9-1.1) APTT 46.8 H* (21.0-31.0) Seconds Potassium 3.2 L (3.5-5.1) mmol/L Chloride 111 H (98-107) mmol/L BUN 34 H (6-23) mg/dl BUN/Creatinine Ratio 31.5 H (10-20) Glucose 122 H (70-99(Fasting)) mg/dl Calcium 7.6 L (8.5-10.1) mg/dl Troponin I 30.77 H* (0-0.04) ng/ml Total Protein 5.5 L (6.0-8.3) gm/dl Albumin 3.3 L (3.4-5.0) gm/dl Globulin 2.2 L (2.5-4.0) gm/dl Diagnostic Findings Chest X-Ray 06/30/21 17:16 XR chest 1V portable CLINICAL HISTORY: Atypical chest pain TECHNIQUE: Single frontal radiograph of the chest was obtained. Comparison: Comparison is made to chest one view 05/26/2021 FINDINGS: Stable median sternotomy wires are seen. Cardiomegaly is noted. Faint bibasilar airspace opacities are seen. No evidence of pleural effusion or pneumothorax. IMPRESSION: Faint bibasilar airspace opacities which may represent atelectasis, pneumonia, and/or aspiration. ACT 112: Negative or not required by law. Electronically signed by: Russell Sifuentes M.D. 06/30/2021 5:38 PM Code Status & VTE Plan Code Status Full Code. VTE Prophylaxis Plan VTE Prophylaxis will be ordered: Yes Supervising Physician Co-Signing Physician Notes Attending addendum: I have physically seen this patient, have supervised the ALEXIS's activities, and agree with the H&P unless as otherwise noted. Assessment and Plan: Retrosternal chest pain/myocarditis/elevated but decreasing troponin/CAD/mechanical aortic valve/stented coronary artery- Recent admission for myocarditis/viral versus autoimmune Negative cardiac catheterization last admission Patient notes symptoms have significantly worsened since being started on leflunomide by rheumatology Continue colchicine 0.6 mg p.o. twice daily Unclear why aspirin was discontinued, but will ask cardiology for their input EBV last admission showed old infection. Lyme done last admission was negative Order CMV, coxsackie virus and parvovirus laboratories History of IgG and IgM deficiencies Remaining orders and notations as noted PG Care Time/CCT Total # of Minutes Spent Total Time Spent with Patient: Total time spent is greater than 50% in coordination of care (as documented) at patient's floor/unit and/or counseling patient: Coding Level of Care Code INT OBSERVATION CARE 70M LVL 3 Diagnoses Retrosternal chest pain R07.2 Chronic anemia D64.9 Interstitial lung disease J84.9 Diabetes E11.42; Z79.4 Diabetes mellitus complication detail: with polyneuropathy Diabetes mellitus complication status: with neurologic complications Diabetes mellitus chcf insulin use: with long distance billing operator use Diabetes mellitus type: type 2 HLD (hyperlipidemia) E78.2 Hyperlipidemia type: mixed hyperlipidemia Parkinsonism G20 Parkinsonism type: unspecified Hypokalemia E87.6 History of seizures Z87.898 CAD (coronary atherosclerotic disease) I25.10 (1) Diabetes Diabetes mellitus complication detail: with polyneuropathy Diabetes mellitus complication status: with neurologic complications Diabetes mellitus chcf insulin use: with chcf use Diabetes mellitus type: type 2 Qualified Code(s): E11.42 - Type 2 diabetes mellitus with diabetic polyneuropathy; Z79.4 - senior care (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
[2021-06-30] MEDS ORDERED: ONDANSETRON INJ 2 MG/ML 2 ML VIAL IV PRN (23:17)
[2021-06-30] MEDS ORDERED: ALBUTEROL HFA 8 GM INHALER INH PRN (23:17)
[2021-06-30] MEDS ORDERED: [UNRECOGNIZED DRUG - OTHER] SCH (23:17)
[2021-06-30] MEDS ORDERED: NITROGLYCERIN SL 0.4 MG/TAB TAB SL PRN ×2 (23:17)
[2021-07-01] MEDS ORDERED: INSULIN ASPART PER UNIT SQ SCH
[2021-07-01] MEDS: CALCIUM CARBONATE 1250MG TAB PO SCH ×2 (01:08→20:28)
[2021-07-01] MEDS: CHOLECALCIFEROL 1,000 UNITS 25 MCG TAB PO SCH ×2 (01:08→20:29)
[2021-07-01] MEDS: allopurinoL 100 MG TAB PO SCH ×2 (01:09→20:28)
[2021-07-01] MEDS: CARBIDOPA/LEVODOPA 25/100MG TAB PO SCH ×4 (01:09→20:29)
[2021-07-01] MEDS: GABAPENTIN 300 MG CAP PO SCH ×3 (01:10→20:30)
[2021-07-01] MEDS: COLCHICINE 0.6 MG TAB PO SCH ×3 (01:10→20:29)
[2021-07-01] MEDS: levETIRAcetam 250 MG TAB PO SCH ×2 (01:10→20:30)
[2021-07-01] MEDS: TOPIRAMATE 100 MG TAB PO SCH ×3 (01:10→20:31)
[2021-07-01] MEDS: INSULIN GLARGINE SOLOSTAR 100 UNITS/ML 3 ML PEN SQ SCH ×3 (01:12→20:31)
[2021-07-01] MEDS: ATORVASTATIN 40 MG TAB PO SCH ×2 (01:13→20:28)
[2021-07-01] MEDS: DICLOFENAC SOD 1% GEL 100 GM TUBE EXT SCH ×5 (01:13→20:29)
[2021-07-01] MEDS: oxyCODONE HCL 10 MG TABCR (OxyCONTIN) PO SCH ×2 (01:50→20:30)
[2021-07-01 05:45] LABS: Basophils # (auto) 0.02 K/uL (0-0.2); Basophils % (auto) 0.6 %; Eosinophils # (auto) 0.12 K/uL (0-0.5); Eosinophils % (auto) 3.5 %; Hematocrit (blood only) 35.4 % (42-52); Hemoglobin 11.3 g/dL (14.0-18.0); Immature Granulocytes # (auto) 0.02 K/uL (0.00-0.02); Immature Granulocytes % (auto) 0.6 %; Lymphocytes # (auto) 0.94 K/uL (1.2-3.4); Lymphocytes % (auto) 27.3 %; Mean Corpuscular Hemoglobin 26.7 pg (25-34); Mean Corpuscular Hgb Conc 31.9 g/dL (32-36); Mean Corpuscular Volume 83.7 fL (80-100); Mean Platelet Volume 8.7 fL (7.4-10.4); Monocytes # (auto) 0.28 K/uL (0.11-0.59); Monocytes % (auto) 8.1 %; Neutrophils # (auto) 2.06 K/uL (1.4-6.5); Neutrophils % (auto) 59.9 %; Platelet Count 144 K/uL (130-400); RDW Coefficient of Variation 19.7 % (11.5-14.5); RDW Standard Deviation 60.1 fL (36.4-46.3); Red Blood Count 4.23 M/uL (4.7-6.1); White Blood Count 3.44 K/uL (4.8-10.8)
[2021-07-01 06:05] LABS: Prothrombin Time 48.7 Seconds (9.0-12.0)
[2021-07-01 06:16] LABS: BUN Creatinine Ratio 28.9 (10-20); Calcium 8.6 mg/dl (8.5-10.1); Creatinine Clr Calc Pharmacy 71.1 ml/min; Est GFR (Non-African American) 62.1 ml/min; Potassium 3.5 mmol/L (3.5-5.1)
[2021-07-01 06:19] LABS: Troponin I 32.25 ng/ml (0-0.04)
[2021-07-01] MEDS: FINASTERIDE 5 MG TAB PO SCH (07:56)
[2021-07-01] MEDS: FUROSEMIDE 20 MG TAB PO SCH (07:56)
[2021-07-01] MEDS: PENICILLIN V POTASSIUM 500 MG TAB PO SCH ×4 (07:56→20:30)
[2021-07-01] MEDS: levETIRAcetam 500 MG TAB PO SCH (07:57)
[2021-07-01] MEDS: FEXOFENADINE HCL 180 MG TAB PO SCH (07:58)
[2021-07-01] MEDS: LEFLUNOMIDE 10 MG TAB PO SCH (07:58)
[2021-07-01] MEDS: SENNA 8.6 MG TAB PO SCH (07:59)
[2021-07-01] MEDS: UMECLIDINIUM/VILANTEROL 62.5/25MCG 7 PUFFS/INHALER INH SCH (08:00)
[2021-07-01] MEDS: FLUTICASONE FUROATE 100MCG 14 PUFFS/INHALER INH SCH (08:00)
[2021-07-01] MEDS: INSULIN ASPART PER UNIT SQ SCH ×4 (08:09→20:31)
[2021-07-01] MEDS ORDERED: predniSONE 10 MG TABLET PO SCH (09:00)
[2021-07-01] MEDS: oxyCODONE HCL IR 5 MG TAB (IMMEDIATE RELEASE) PO PRN (12:39)
[2021-07-01 13:37] LABS: Troponin I 32.71 ng/ml (0-0.04)
[2021-07-01] MEDS ORDERED: WARFARIN SOD 7.5 MG TAB PO SCH (16:00)
--- NOTE | 2021-07-01 16:45 | Cardiac Catheterization ---
Cardiac Cath Procedure Full Procedure Date July 01, 2021 I am trying AUC Score AUC Score: 8 Post-Procedure Diagnosis Post-Procedure Diagnosis: Mild CAD Procedure(s) Performed Procedure(s) Performed: Coronary Angiography and Ultrasound Guided Vascular Access [employer] Specialist Ricardo Thomas MD, PhD I attest to the content of the Intraoperative Record and any orders documented therein. Any exceptions are noted below. ACC Data: Direct Marketing Intern Cardiac Status Clinical evaluation leading to the procedure Diagnostic Physicians Name: Ricardo Thomas MD, PhD
--- NOTE | 2021-07-01 18:52 | Electrocardiogram Report ---
Test Reason : Blood Pressure : / mmHG Vent. Rate : 074 BPM Atrial Rate : 074 BPM P-R Int : 104 ms QRS Dur : 082 ms QT Int : 426 ms P-R-T Axes : 006 002 102 degrees QTc Int : 472 ms Sinus rhythm with occasional Premature ventricular complexes and Premature atrial complexes Low voltage QRS Abnormal ECG When compared with ECG of 30-JUN-2021 17:07, (unconfirmed) Premature atrial complexes are now Present Confirmed by Cody Soto ([id number]) on 07/01/2021 6:51:54 PM Referred By: REFERRED SELF Confirmed By:Wyatt Soto
--- NOTE | 2021-07-01 20:19 | Hospitalist Progress Note ---
Date of Service July 01, 2021 Assessment & Plan (1) Myocarditis: Plan: Patient dx late April/early May 2021. Presented with chest pain, markedly elevated troponins (>30). s/p heart cath during that admission - L main stent patent, minimal CAD otherwise. 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 He also has h/o myocarditis in 04/2019, hospitalized in the [facility] region. Patient continues with refractory chest pain and ongoing/marked troponin elevation with values still >30. This is despite a prednisone pulse with slow taper, colchicine 0.6mg BID, and institution of Leflunomide. Of note - CPK is normal. Again exact etiology of myocarditis is uncertain but favored to be autoimmune/rheumatic. I had extensive discussions today with Dr Chau, [facility] cardiology (this is his primary sales representative advertising), and Dr Buckley - [facility] Rheum. Both advised tertiary care center referral. Need for advanced imaging of heart (cardiac MRI, etc), ?other Rx modalities (IVIG, others), and multi-specialty care. Plan to repeat a limited echo tomorrow to reassess his LV function. However, he appears compensated on exam today. Repeat a troponin in am for stability. I called and spoke with the [facility] transfer center this evening. Patient ultimately accepted in transfer to [facility] by Dr Ana Ng, hospitalist. Dr Buckley had made rheumatology in [place] aware of Mr Bradford's complex past medical history (Dr Richmond Geronimo). Plan to increase his prednisone to 60mg/day starting today while awaiting Tx to [place]. This is recommended by Dr Buckley. (2) Elevated troponin: Plan: 2nd to #1 CPK wnl recheck trop in am s/p heart cath 05/25/[address] Vincent - patent L main stent; other vessels without obstructive lesions thus, troponin elevation is not due to ischemia no evidence of pericarditis (3) CAD (coronary atherosclerotic disease): Plan: s/p L main stent 2018 - [facility] s/p heart cath 04/2021 - stent patent, no obstructive lesions cont statin not on asa or plavix at presentation, however DR Chau's consult note in April suggests he should be on aspirin once daily was it d/c when his colchicine was added?? will need to clarify (4) Interstitial lung disease: Plan: diagnosed several years ago - by physicians in [place], then at [facility] 2nd to rheumatoid arthritis? 05/2021 scanned office notes from pulmonary at [facility] (pt had telehealth visit) suggest he may not have ILD but chronic aspiration?? either way pulmonary status is stable at this time (5) Polymyositis: Plan: initial dx made in [place], [place] several years ago has been steroid-dependent for several years apparently had had a polymyositis panel in the past showing MDA5 level was elevated (per Dr Buckley - his level was 34, normal being <20) multiple attempts to Rx his polymyositis +/- questionable RA with rituxan, other meds not successful (records suggest he had a severe adverse rxn to the rituxan, etc) Dr Buckley initiated Leflunomide 05/2021 - patient with fatigue, etc that he attributes to the medication [id number] he remains on the med patient will need additional rheum w/u once he is transferred to [place] of note - all CPK levels going back several years are normal including today's CPK (6) History of aortic valve replacement: Plan: 2003 INR goal 2.5 to 3.5 INR today is high - hold coumadin, repeat INR am (7) PAF (paroxysmal atrial fibrillation): Plan: noted telemetry coumadin he is not on rate-controlling agents (8) Chronic kidney disease, stage 3a: Plan: history of such, but now CrCL is >60 bmp am (9) Parkinsonism: Plan: recent dx by neurology (vs actual PD) follows with neurology for seizure d/o as well cont sinemet (10) Rheumatoid arthritis: Plan: question of diagnosis dating back several years does not have joint manifestations of RA at this time apparently he has been RF negative in the past but weakly positive to anti-CCP previous thought was that his suspected ILD was due to RA following with Dr Buckley locally (11) Seizure: Plan: seizure d/o continue usual seizure medications (12) Pancytopenia: Plan: etiology? b12 level was <300 in April - add supplementation not folate level since 2019 - recheck TSH wnl 2nd to rheumatic disease? other? (13) History of prostate cancer: Plan: noted (14) Diabetes: Plan: a1c 7.7% in 03/2021 cont lantus BID cont novolog adjust as needed especially given the higher dose steroid to be used Plan: left message for pt's son this evening on his voicemail of note - pt is on PCN VK for recent dental work (had the dental work in [place]??) very complex care coordination including multiple calls to Patrice, Dr Chau, Dr Buckley, multiple bedside visits, reviewing records, etc total time today 120 minutes Admission and Anticipated Discharge Date Admission Date: June 30, 2021 Subjective patient was resting during the visit he states he continues with chest pain the location is central/substernal with radiation to the left shoulder & proximal arm no dyspnea no pleuritic component NOT positional in nature no GERD symptoms pain is deep in the chest, not superficial after his hospital stay in late April when initial dx of myocarditis was made he states he never really had resolution of his chest pain it is a constant "ache" with periods of severe throbbing he confirmed with me he is taking prednisone 10mg/day he also confirmed he is taking the Leflunomide that Dr Buckley, rheum, prescribed in May I had several conversations with Dr Buckley today as well as Dr Chau from cardiology both advised tertiary care center referral patient states he is coughing - a little worse over the last few days he does use prn O2 at home he also confirms he met with [facility] via telehealth re: his ?ILD they are now stating that they think he does not have ILD but chronic aspiration? pt denies dysphagia Review of Systems Review of Systems: gen - no fevers or chills cv - no orthopnea pulm - no sputum, no dyspnea at rest GI - no pain musculo - denies myalgias Physical Exam Physical Exam: gen - NAD, resting comfortably, awake, alert chest - no reproducible chest wall pain to palpation mouth - MMM, no thrush neck - no JVD heart - RRR, s1 s2, no murmur; mechanical valve closure sound lungs - mild, dry, basilar rales b/l; no wheeze; no increased work of breathing abd - soft NT ND BS+ ext - edema right leg about 1+; none on left; pulses 2+ b/l psych - a/o x 3 Results & Data Results & Data ([facility]) Vital Signs (Past 12 Hours) Vital Signs Temp Pulse Pulse Pulse Resp BP Pulse Ox 07/01/21 19:00 36.6 C 71 20 124/75 97 07/01/21 15:54 77 07/01/21 15:28 36.7 C 77 20 112/71 95 07/01/21 10:51 36.8 C 68 19 107/62 94 Laboratory Results Laboratory Results - last 24 hr 06/30/21 06/30/21 06/30/21 17:16 17:16 17:16 WBC RBC Hgb Hct MCV MCH MCHC RDW Std Deviation RDW Coeff of Lianne Plt Count MPV Immature Gran % (Auto) Neut % (Auto) Lymph % (Auto) Turner % (Auto) Eos % (Auto) Baso % (Auto) Neut # (Auto) Lymph # (Auto) Turner # (Auto) Eos # (Auto) Baso # (Auto) Immature Gran # (Auto) ESR 32 H PT INR Sodium Potassium Chloride Carbon Dioxide Anion Gap BUN Creatinine Est Cr Clr Drug Dosing Est GFR ( Amer) Est GFR (Non-Af Amer) BUN/Creatinine Ratio Glucose POC Glucose Calcium Magnesium 1.9 Total Creatine Kinase Troponin I C-Reactive Protein 1.45 H Coxsackie Type A(2) Ab [place] Type A(4) Ab [place] Type A(7) Ab [place] Type A(9) Ab [place] Type A(10) Ab [place] Type A(16) Ab CMV IgM Ab CMV IgG Ab/TORCH Parvovirus IgG Ab Index Parvovirus IgM Ab Index 06/30/21 07/01/21 07/01/21 22:14 01:16 05:29 WBC RBC Hgb Hct MCV MCH MCHC RDW Std Deviation RDW Coeff of Lianne Plt Count MPV Immature Gran % (Auto) Neut % (Auto) Lymph % (Auto) Turner % (Auto) Eos % (Auto) Baso % (Auto) Neut # (Auto) Lymph # (Auto) Turner # (Auto) Eos # (Auto) Baso # (Auto) Immature Gran # (Auto) ESR PT INR Sodium Potassium Chloride Carbon Dioxide Anion Gap BUN Creatinine Est Cr Clr Drug Dosing Est GFR ( Amer) Est GFR (Non-Af Amer) BUN/Creatinine Ratio Glucose POC Glucose 87 123 H Calcium Magnesium Total Creatine Kinase Troponin I C-Reactive Protein [place] Type A(2) Ab Pending [place]ackie Type A(4) Ab Pending [place] Type A(7) Ab Pending [place] Type A(9) Ab Pending [place]ie Type A(10) Ab Pending [place]ie Type A(16) Ab Pending CMV IgM Ab Pending CMV IgG Ab/TORCH Pending Parvovirus IgG Ab Index Pending Parvovirus IgM Ab Index Pending 07/01/21 07/01/21 07/01/21 05:29 05:29 05:29 WBC 3.44 L RBC 4.23 L Hgb 11.3 L Hct 35.4 L MCV 83.7 MCH 26.7 MCHC 31.9 L RDW Std Deviation 60.1 H RDW Coeff of Lianne 19.7 H Plt Count 144 MPV 8.7 Immature Gran % (Auto) 0.6 Neut % (Auto) 59.9 Lymph % (Auto) 27.3 Turner % (Auto) 8.1 Eos % (Auto) 3.5 Baso % (Auto) 0.6 Neut # (Auto) 2.06 Lymph # (Auto) 0.94 L Turner # (Auto) 0.28 Eos # (Auto) 0.12 Baso # (Auto) 0.02 Immature Gran # (Auto) 0.02 ESR PT 48.7 H INR 5.0 H Sodium 138 Potassium 3.5 Chloride 109 H Carbon Dioxide 23 Anion Gap 6 BUN 33 H Creatinine 1.14 Est Cr Clr Drug Dosing 71.1 Est GFR ( Amer) 72.0 Est GFR (Non-Af Amer) 62.1 BUN/Creatinine Ratio 28.9 H Glucose 106 H POC Glucose Calcium 8.6 Magnesium Total Creatine Kinase Troponin I 32.25 H* C-Reactive Protein [place] Type A(2) Ab [place] Type A(4) Ab [place] Type A(7) Ab [place] Type A(9) Ab [place] Type A(10) Ab [place] Type A(16) Ab CMV IgM Ab CMV IgG Ab/TORCH Parvovirus IgG Ab Index Parvovirus IgM Ab Index 07/01/21 07/01/21 07/01/21 07:53 11:38 12:41 WBC RBC Hgb Hct MCV MCH MCHC RDW Std Deviation RDW Coeff of Lianne Plt Count MPV Immature Gran % (Auto) Neut % (Auto) Lymph % (Auto) Turner % (Auto) Eos % (Auto) Baso % (Auto) Neut # (Auto) Lymph # (Auto) Turner # (Auto) Eos # (Auto) Baso # (Auto) Immature Gran # (Auto) ESR PT INR Sodium Potassium Chloride Carbon Dioxide Anion Gap BUN Creatinine Est Cr Clr Drug Dosing Est GFR ( Amer) Est GFR (Non-Af Amer) BUN/Creatinine Ratio Glucose POC Glucose 90 167 H Calcium Magnesium Total Creatine Kinase 60 Troponin I 32.71 H* C-Reactive Protein [place] Type A(2) Ab [place] Type A(4) Ab [place] Type A(7) Ab [place] Type A(9) Ab [place] Type A(10) Ab [place] Type A(16) Ab CMV IgM Ab CMV IgG Ab/TORCH Parvovirus IgG Ab Index Parvovirus IgM Ab Index 07/01/21 16:58 WBC RBC Hgb Hct MCV MCH MCHC RDW Std Deviation RDW Coeff of Lianne Plt Count MPV Immature Gran % (Auto) Neut % (Auto) Lymph % (Auto) Turner % (Auto) Eos % (Auto) Baso % (Auto) Neut # (Auto) Lymph # (Auto) Turner # (Auto) Eos # (Auto) Baso # (Auto) Immature Gran # (Auto) ESR PT INR Sodium Potassium Chloride Carbon Dioxide Anion Gap BUN Creatinine Est Cr Clr Drug Dosing Est GFR ( Amer) Est GFR (Non-Af Amer) BUN/Creatinine Ratio Glucose POC Glucose 149 H Calcium Magnesium Total Creatine Kinase Troponin I C-Reactive Protein [place] Type A(2) Ab [place] Type A(4) Ab [place] Type A(7) Ab [place] Type A(9) Ab [place] Type A(10) Ab [place] Type A(16) Ab CMV IgM Ab CMV IgG Ab/TORCH Parvovirus IgG Ab Index Parvovirus IgM Ab Index PG Care Time/CCT Total # of Minutes Spent Total Time Spent with Patient: Total time spent is greater than 50% in coordination of care (as documented) at patient's floor/unit and/or counseling patient: Prolonged Care Time Prolonged Care Time: Yes 120 Coding Level of Care Code 37755 Subseq Hosp Care Lvl 3 (25 - SIGNIFICANT, SEPARATELY IDENTIFIABLE ) Diagnoses Myocarditis I51.4 Elevated troponin R77.8 CAD (coronary atherosclerotic disease) I25.10 Interstitial lung disease J84.9 Polymyositis M33.20 History of aortic valve replacement Z95.2 PAF (paroxysmal atrial fibrillation) I48.0 Chronic kidney disease, stage 3a N18.3 Parkinsonism G20 Parkinsonism type: unspecified Rheumatoid arthritis M06.9 Seizure R56.9 Pancytopenia D61.818 History of prostate cancer Z85.46 Diabetes E11.42; Z79.4 Diabetes mellitus type: type 2 Diabetes mellitus chcf insulin use: with 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 Diabetes mellitus complication status: with neurologic complications Diabetes mellitus complication detail: with polyneuropathy Additional Codes Prolonged Care Time - Prolonged Care Time: Yes ([id number]) Time Spent (min) 120 (1) Parkinsonism Parkinsonism type: unspecified Qualified Code(s): G20 - Parkinson's disease (2) Diabetes Diabetes mellitus type: type 2 Diabetes mellitus local intermodal truck driver insulin use: with 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 Diabetes mellitus complication status: with neurologic complications Diabetes mellitus complication detail: with polyneuropathy Qualified Code(s): E11.42 - Type 2 diabetes mellitus with diabetic polyneuropathy; Z79.4 - penitentiary (current) use of insulin
[2021-07-01] MEDS ORDERED: predniSONE 50 MG TAB PO ONE (20:30)
[2021-07-02 07:53] LABS: Eosinophils # (auto) 0.01 K/uL (0-0.5); Eosinophils % (auto) 0.2 %; Hematocrit (blood only) 39.6 % (42-52); Hemoglobin 12.3 g/dL (14.0-18.0); Immature Granulocytes # (auto) 0.04 K/uL (0.00-0.02); Immature Granulocytes % (auto) 0.7 %; Lymphocytes # (auto) 0.52 K/uL (1.2-3.4); Lymphocytes % (auto) 9.6 %; Mean Corpuscular Hemoglobin 26.6 pg (25-34); Mean Corpuscular Hgb Conc 31.1 g/dL (32-36); Mean Corpuscular Volume 85.5 fL (80-100); Mean Platelet Volume 9.5 fL (7.4-10.4); Monocytes # (auto) 0.06 K/uL (0.11-0.59); Monocytes % (auto) 1.1 %; Neutrophils % (auto) 88.4 %; Platelet Count 171 K/uL (130-400); RDW Coefficient of Variation 19.5 % (11.5-14.5); RDW Standard Deviation 61.6 fL (36.4-46.3); Red Blood Count 4.63 M/uL (4.7-6.1); White Blood Count 5.43 K/uL (4.8-10.8)
[2021-07-02] MEDS: CYANOCOBALAMIN (B-12) 500 MCG TABLET PO SCH (07:57)
[2021-07-02] MEDS: POLYETHYLENE (MIRALAX) 17 GM PACK PO PRN (07:57)
[2021-07-02] MEDS: COLCHICINE 0.6 MG TAB PO SCH ×2 (07:58→20:19)
[2021-07-02] MEDS: predniSONE 20 MG TAB PO SCH (07:58)
[2021-07-02] MEDS: CARBIDOPA/LEVODOPA 25/100MG TAB PO SCH ×3 (07:58→20:18)
[2021-07-02] MEDS: PANTOprazole 40 MG TAB PO PRN (07:59)
[2021-07-02] MEDS: FEXOFENADINE HCL 180 MG TAB PO SCH (07:59)
[2021-07-02] MEDS: LEFLUNOMIDE 10 MG TAB PO SCH (07:59)
[2021-07-02] MEDS: SENNA 8.6 MG TAB PO SCH (07:59)
[2021-07-02] MEDS: TOPIRAMATE 100 MG TAB PO SCH ×2 (07:59→20:24)
[2021-07-02] MEDS: PENICILLIN V POTASSIUM 500 MG TAB PO SCH ×4 (07:59→20:24)
[2021-07-02] MEDS: GABAPENTIN 300 MG CAP PO SCH ×2 (07:59→21:13)
[2021-07-02] MEDS: FINASTERIDE 5 MG TAB PO SCH (07:59)
[2021-07-02] MEDS: FLUTICASONE FUROATE 100MCG 14 PUFFS/INHALER INH SCH (08:00)
[2021-07-02] MEDS: UMECLIDINIUM/VILANTEROL 62.5/25MCG 7 PUFFS/INHALER INH SCH (08:00)
[2021-07-02] MEDS: levETIRAcetam 500 MG TAB PO SCH (08:00)
[2021-07-02] MEDS: INSULIN GLARGINE SOLOSTAR 100 UNITS/ML 3 ML PEN SQ SCH (08:00)
[2021-07-02] MEDS: DICLOFENAC SOD 1% GEL 100 GM TUBE EXT SCH ×4 (08:00→20:20)
[2021-07-02] MEDS: INSULIN ASPART PER UNIT SQ SCH ×4 (08:01→20:31)
[2021-07-02 08:03] LABS: Prothrombin Time 29.8 Seconds (9.0-12.0)
[2021-07-02 08:34] LABS: BUN Creatinine Ratio 28.3 (10-20); Creatinine Clr Calc Pharmacy 61.8 ml/min; Est GFR (African American) 63.2 ml/min; Est GFR (Non-African American) 54.5 ml/min; Potassium 4.2 mmol/L (3.5-5.1); Troponin I 34.88 ng/ml (0-0.04)
[2021-07-02] MEDS ORDERED: PHARMACY GLYCEMIC MGMT CONSULT PRN (09:12)
[2021-07-02] MEDS: oxyCODONE HCL IR 5 MG TAB (IMMEDIATE RELEASE) PO PRN ×2 (09:13→17:47)
--- NOTE | 2021-07-02 11:36 | XCELERA ---
[id number]
[2021-07-02] MEDS ORDERED: INSULIN HUMAN NPH SC ONE (12:30)
--- NOTE | 2021-07-02 13:07 | Pharmacy Report ---
Pharmacy Glycemic Short Note 2 - Date of Service July 02, 2021 - Glycemic Short BSG Results (Last 24 hours): 07/01/21 07/01/21 07/02/21 16:58 20:18 07:21 Glucose 245 H POC Glucose 149 H 180 H 07/02/21 07/02/21 07/02/21 07:28 11:52 11:53 Glucose POC Glucose 263 H 305 H* 306 H* OUTPATIENT ANTIDIABETIC REGIMEN: * Trulicity 1.5 mg SQ weekly * Lantus 20 units BID + Novolog with meals * NPH 1 unit per 1 mg of steroids ASSESSMENT: * Patient's BSGs yesterday were 04-497-108-180 mg/dL. Fasting today was 263 mg/dL. * Patient received 40 units of Lantus plus 30 units of bolus yesterday (total of 70 units). * Patient received 10 units of prednisone in morning and then 50 mg of prednisone at bedtime. Started 60 mg of prednisone this morning. * Pharmacy consulted after patient received morning insulin - 20 units of Lantus plus Novolog. * Lunch BSG was 306 mg/dL. * Initially NPH was not given because patient received substantial amount of basal insulin yesterday. Typically receives around 20 units of Lantus/day and received 40 units yesterday. Patient insisted he receive NPH and agreed upon receiving 30 units (gave less than home dose since this was being given at lunchtime) * Will d/c Lantus for now (received 20 units this morning) and re-evaluate tomorrow. * Continue Novolog as reasonable compared to last admission. PLAN FOR INPATIENT GLYCEMIC CONTROL: * Hold outpatient SQ diabetes medications * Basal insulin * Lantus 20 units SQ daily * NPH 30 units daily * Bolus insulin * NovoLog per scale ACHS or Q6hrs while NPO * Goal Range: Low 110 mg/dL - High 140 mg/dL * Correction Factor: 20 mg/dL/unit * Nutritional / Prandial insulin per carb ratio of 1 unit per 7 grams CHO consumed
--- NOTE | 2021-07-02 18:19 | Hospitalist Progress Note ---
Date of Service July 02, 2021 Assessment & Plan (1) Retrosternal chest pain: Plan: -Likely unresolved myocarditis in the setting of a very elevated troponin with stabbing chest pain, unchanged since last admission on 05/24 when he was dx with myocarditis, either post viral or autoimmune in nature. 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 Patient does not report new onset chest pain/tightness or palpitations, however does report URI symptoms this week, specifically nasal congestion. Recently started on Leflunomide by rheumatology. Patient is not hypoxic, no trauma, no ectopy, and no recent new vaccines. -Patient started on colchicine BID on last discharge, continue this. ASA was being held, will defer to cardiology whether or not to restart this. -Trop 30 level stable. -ESR and CRP elevated, CMV, coxsackie, and parvovirus labs ordered, pending. -Cardiology consulted, appreciate their recommendations. (2) Hypokalemia: Plan: -3.2 in ED, 40 mEq given. -Mg 1.9, no need to replete at this time. -Replaced, potassium 4.2 today. (3) CAD (coronary atherosclerotic disease): Plan: - Follows with Dr Chau. 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 A cardiac catheterization in April 2019 noted a patent left main stent and mild diffuse disease within the LAD, LCx, and RCA - ECHO 02/14/21 noted normal systolic function with ejection fraction 55-60% - S/P catheterization last admission w/o obstructive coronary disease - Continue statin (4) Chronic anemia: Plan: -H/H stable and improved from last admission on 05/24. (5) Interstitial lung disease: Plan: -Patient follows with rheumatology as well as with pulmonary. -Continue prednisone 10 mg per day w/ 10 units insulin (1 unite per mg of prednisone per pulm) -Leflunomide was recently added, patient states he has been feeling worse since it was started. Medication is not known to cause myocarditis but is known to cause vasculitis. Could consider stopping this medication. (6) Diabetes: Plan: -Reports he has cut back on insulin doses due to decreased appetite and low sugars in 40s several times in the evenings. -Sliding Scale Aspart with 10 units insulin in AM while on 10 mg prednisone. -CC/heart healthy diet -Continue Gabapentin for neuropathy. (7) HLD (hyperlipidemia): Plan: -continue Atorvastatin 40 mg daily. (8) Parkinsonism: Plan: -He follows with Neurology Dr Sheikh -Continue Sinemet 25/100 (9) History of seizures: Plan: -Patient reports history of seizures- he has seen a headache specialist -Continue Keppra, Continue Topiramate, Continue Gabapentin -Seizure precautions. Plan: -Continued admission on med telemetry pending transfer to [place]. -DVT ppx with SCDs and Coumadin. INR 3.0 today -Full Code. Admission and Anticipated Discharge Date Admission Date: July 01, 2021 Subjective Continue central left-sided chest pain with occasional radiation to his left shoulder and jaw. No change in symptoms since yesterday. Reason for admission was this pain was getting slightly progressively worse. Awaiting transfer to [place] at this time. Review of Systems Review of Systems: All systems reviewed & are unremarkable except as noted in Subjective Physical Exam Constitutional: WD/WN, vitals as above Respiratory: normal respiratory effort, lungs clear to auscultation Cardiovascular: Rate/Rhythm: regular rate and regular rhythm Heart Sounds: + click; no murmur Gastrointestinal (Abdomen): Percussion/Palpation: abdomen soft; abdomen nontender Musculoskeletal: no cyanosis or clubbing, extremities motor strength 5/5 Skin: no rashes, warm and dry Psychiatric: A+Ox3, euthymic affect Results & Data Results & Data ([facility]) Vital Signs (Past 12 Hours) Vital Signs Temp Pulse Pulse Resp BP BP Pulse Ox 07/02/21 16:06 71 07/02/21 15:33 36.7 C 74 16 119/58 L 95 07/02/21 11:32 36.6 C 80 19 103/62 94 07/02/21 08:10 36.4 C L 70 16 121/74 90 07/02/21 07:04 66 PG Care Time/CCT Total # of Minutes Spent Total Time Spent with Patient: Total time spent is greater than 50% in coordination of care (as documented) at patient's floor/unit and/or counseling patient: Coding Level of Care Code 35279 Subseq Hosp Care Lvl 2 Diagnoses Retrosternal chest pain R07.2 Hypokalemia E87.6 CAD (coronary atherosclerotic disease) I25.10 Chronic anemia D64.9 Interstitial lung disease J84.9 Diabetes E11.42; Z79.4 Diabetes mellitus complication detail: with polyneuropathy Diabetes mellitus complication status: with neurologic complications Diabetes mellitus buttermaker continuous churn insulin use: with buttermaker continuous churn use Diabetes mellitus type: type 2 HLD (hyperlipidemia) E78.2 Hyperlipidemia type: mixed hyperlipidemia Parkinsonism G20 Parkinsonism type: unspecified History of seizures Z87.898 (1) Diabetes Diabetes mellitus complication detail: with polyneuropathy Diabetes mellitus complication status: with neurologic complications Diabetes mellitus shelter insulin use: with shelter use Diabetes mellitus type: type 2 Qualified Code(s): E11.42 - Type 2 diabetes mellitus with diabetic polyneuropathy; Z79.4 - ferry terminal supervisor (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
[2021-07-02] MEDS: CALCIUM CARBONATE 1250MG TAB PO SCH (20:17)
[2021-07-02] MEDS: allopurinoL 100 MG TAB PO SCH (20:17)
[2021-07-02] MEDS: ATORVASTATIN 40 MG TAB PO SCH (20:17)
[2021-07-02] MEDS: CHOLECALCIFEROL 1,000 UNITS 25 MCG TAB PO SCH (20:18)
[2021-07-02] MEDS: levETIRAcetam 250 MG TAB PO SCH (20:23)
[2021-07-02] MEDS: oxyCODONE HCL 10 MG TABCR (OxyCONTIN) PO SCH (20:33)
[2021-07-03] MEDS: INSULIN ASPART PER UNIT SQ SCH ×6 (00:11→21:18)
[2021-07-03 07:34] LABS: INR 1.9 (0.9-1.1)
[2021-07-03] MEDS: FLUTICASONE FUROATE 100MCG 14 PUFFS/INHALER INH SCH (08:46)
[2021-07-03] MEDS: POLYETHYLENE (MIRALAX) 17 GM PACK PO PRN (08:46)
[2021-07-03] MEDS: INSULIN HUMAN NPH SC SCH (08:47)
[2021-07-03] MEDS: UMECLIDINIUM/VILANTEROL 62.5/25MCG 7 PUFFS/INHALER INH SCH (08:47)
[2021-07-03] MEDS: CYANOCOBALAMIN (B-12) 500 MCG TABLET PO SCH (08:47)
[2021-07-03] MEDS: INSULIN GLARGINE SOLOSTAR 100 UNITS/ML 3 ML PEN SQ SCH (08:47)
[2021-07-03] MEDS: GABAPENTIN 300 MG CAP PO SCH ×2 (08:47→21:02)
[2021-07-03] MEDS: FEXOFENADINE HCL 180 MG TAB PO SCH (08:48)
[2021-07-03] MEDS: PENICILLIN V POTASSIUM 500 MG TAB PO SCH ×4 (08:48→21:04)
[2021-07-03] MEDS: SENNA 8.6 MG TAB PO SCH (08:48)
[2021-07-03] MEDS: FINASTERIDE 5 MG TAB PO SCH (08:48)
[2021-07-03] MEDS: PANTOprazole 40 MG TAB PO PRN (08:48)
[2021-07-03] MEDS: LEFLUNOMIDE 10 MG TAB PO SCH (08:48)
[2021-07-03] MEDS: predniSONE 20 MG TAB PO SCH (08:48)
[2021-07-03] MEDS: COLCHICINE 0.6 MG TAB PO SCH ×2 (08:49→21:03)
[2021-07-03] MEDS: levETIRAcetam 500 MG TAB PO SCH (08:49)
[2021-07-03] MEDS: TOPIRAMATE 100 MG TAB PO SCH ×2 (08:49→21:03)
[2021-07-03] MEDS: CARBIDOPA/LEVODOPA 25/100MG TAB PO SCH ×3 (08:49→21:02)
[2021-07-03] MEDS: DICLOFENAC SOD 1% GEL 100 GM TUBE EXT SCH ×4 (08:49→21:12)
--- NOTE | 2021-07-03 08:56 | Pharmacy Report ---
Pharmacy Glycemic Short Note 2 - Date of Service July 03, 2021 - Glycemic Short BSG Results (Last 24 hours): 07/02/21 07/02/21 07/02/21 11:52 11:53 16:43 POC Glucose 305 H* 306 H* 223 H 07/02/21 07/03/21 07/03/21 20:15 00:02 07:25 POC Glucose 221 H 167 H 133 H OUTPATIENT ANTIDIABETIC REGIMEN: * Trulicity 1.5 mg SQ weekly * Lantus 20 units BID + Novolog with meals * NPH 1 unit per 1 mg of steroids ASSESSMENT: * Patient's BSGs yesterday were [phone] mg/dL. Fasting today was 133 mg/dL. * Continue Lantus 20 units daily. * Increase NPH to 40 units and give this morning with prednisone 60 mg. * Continue Novolog as reasonable BSGs yesterday. Background * Patient's BSGs yesterday were [phone] mg/dL. Fasting today was 263 mg/dL. * Patient received 40 units of Lantus plus 30 units of bolus yesterday (total of 70 units). * Patient received 10 units of prednisone in morning and then 50 mg of prednisone at bedtime. Started 60 mg of prednisone this morning. * Pharmacy consulted after patient received morning insulin - 20 units of Lantus plus Novolog. * Lunch BSG was 306 mg/dL. * Initially NPH was not given because patient received substantial amount of b karolina insulin yesterday. Typically receives around 20 units of Lantus/day in house and received 40 units yesterday. Patient insisted he receive NPH and agreed upon receiving 30 units (gave less than home dose since this was being given at lunchtime) * Will d/c Lantus for now (received 20 units this morning) and re-evaluate tomorrow. * Continue Novolog as reasonable compared to last admission. PLAN FOR INPATIENT GLYCEMIC CONTROL: * Hold outpatient SQ diabetes medications * Basal insulin * Lantus 20 units SQ daily * NPH 40 units daily * Bolus insulin * NovoLog per scale ACHS or Q6hrs while NPO * Goal Range: Low 110 mg/dL - High 140 mg/dL * Correction Factor: 20 mg/dL/unit * Nutritional / Prandial insulin per carb ratio of 1 unit per 7 grams CHO consumed
[2021-07-03] MEDS: oxyCODONE HCL IR 5 MG TAB (IMMEDIATE RELEASE) PO PRN ×3 (10:53→20:57)
--- NOTE | 2021-07-03 16:41 | Hospitalist Progress Note ---
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 Patient does not report new onset chest pain/tightness or palpitations, however does report URI symptoms this week, specifically nasal congestion. Recently started on Leflunomide by rheumatology. Patient is not hypoxic, no trauma, no ectopy, and no recent new vaccines. -Patient started on colchicine BID on last discharge, continue this. ASA was being held, will defer to cardiology whether or not to restart this. -Trop 30 level stable. Will repeat with tomorrow labs. -ESR and CRP elevated, CMV, coxsackie, and parvovirus labs ordered, pending. -Cardiology consulted, appreciate their recommendations. -Awaiting transfer to [place] at this time. No beds available today. (2) Hypokalemia: Plan: -3.2 in ED, 40 mEq given. -Mg 1.9, no need to replete at this time. -Replaced, potassium 4.2 3/5. (3) CAD (coronary atherosclerotic disease): Plan: - Follows with Dr Chau. 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 A cardiac catheterization in April 2019 noted a patent left main stent and mild diffuse disease within the LAD, LCx, and RCA - ECHO 02/14/21 noted normal systolic function with ejection fraction 55-60% - S/P catheterization last admission w/o obstructive coronary disease - Continue statin (4) Chronic anemia: Plan: -H/H stable and improved from last admission on 05/24. (5) Interstitial lung disease: Plan: -Patient follows with rheumatology as well as with pulmonary. -Continue prednisone 10 mg per day w/ 10 units insulin (1 unite per mg of prednisone per pulm) -Leflunomide was recently added, patient states he has been feeling worse since it was started. Medication is not known to cause myocarditis but is known to cause vasculitis. Could consider stopping this medication. (6) Diabetes: Plan: -Reports he has cut back on insulin doses due to decreased appetite and low sugars in 40s several times in the evenings. -consult pharmacy for glycemic control in setting of increased steroids. -CC/heart healthy diet -Continue Gabapentin for neuropathy. (7) HLD (hyperlipidemia): Plan: -continue Atorvastatin 40 mg daily. (8) Parkinsonism: Plan: -He follows with Neurology Dr Sheikh -Continue Sinemet 25/100 (9) History of seizures: Plan: -Patient reports history of seizures- he has seen a headache specialist -Continue Keppra, Continue Topiramate, Continue Gabapentin -Seizure precautions. Plan: -Continued admission on med telemetry pending transfer to [place]. -DVT ppx with SCDs and Coumadin. INR 1.9 today, restarted on warfarin. -Full Code. Admission and Anticipated Discharge Date Admission Date: July 01, 2021 Subjective Reports requiring increasing doses of oxycodone due to substernal chest pain. No worsening shortness of breath. Review of Systems Review of Systems: All systems reviewed & are unremarkable except as noted in Subjective Physical Exam Constitutional: WD/WN, vitals as above Respiratory: normal respiratory effort, lungs clear to auscultation Cardiovascular: Rate/Rhythm: regular rate and regular rhythm Heart Sounds: + click; no murmur Gastrointestinal (Abdomen): Percussion/Palpation: abdomen soft; abdomen nontender Musculoskeletal: no cyanosis or clubbing, extremities motor strength 5/5 Skin: no rashes, warm and dry Psychiatric: A+Ox3, euthymic affect Results & Data Results & Data ([facility]) Vital Signs (Past 12 Hours) Vital Signs Temp Pulse Pulse Resp BP BP Pulse Ox 07/03/21 15:33 60 07/03/21 15:22 36.5 C 71 18 127/60 96 07/03/21 11:09 36.3 C L 67 18 118/69 98 07/03/21 09:07 70 07/03/21 06:41 36.5 C 61 20 120/69 95 PG Care Time/CCT Total # of Minutes Spent Total Time Spent with Patient: Total time spent is greater than 50% in coordination of care (as documented) at patient's floor/unit and/or counseling patient: Coding Level of Care Code 18661 Subseq Hosp Care Lvl 2 Diagnoses Retrosternal chest pain R07.2 Hypokalemia E87.6 CAD (coronary atherosclerotic disease) I25.10 Chronic anemia D64.9 Interstitial lung disease J84.9 Diabetes E11.42; Z79.4 Diabetes mellitus complication detail: with polyneuropathy Diabetes mellitus complication status: with neurologic complications Diabetes mellitus 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 insulin use: with 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 use Diabetes mellitus type: type 2 HLD (hyperlipidemia) E78.2 Hyperlipidemia type: mixed hyperlipidemia Parkinsonism G20 Parkinsonism type: unspecified History of seizures Z87.898 (1) Diabetes Diabetes mellitus complication detail: with polyneuropathy Diabetes mellitus complication status: with neurologic complications Diabetes mellitus 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 insulin use: with 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 use Diabetes mellitus type: type 2 Qualified Code(s): E11.42 - Type 2 diabetes mellitus with diabetic polyneuropathy; Z79.4 - senior living (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
[2021-07-03] MEDS: oxyCODONE HCL 10 MG TABCR (OxyCONTIN) PO SCH (20:57)
[2021-07-03] MEDS: ACETAMINOPHEN 325 MG TAB PO PRN (20:58)
[2021-07-03] MEDS: ATORVASTATIN 40 MG TAB PO SCH (21:02)
[2021-07-03] MEDS: allopurinoL 100 MG TAB PO SCH (21:02)
[2021-07-03] MEDS: levETIRAcetam 250 MG TAB PO SCH (21:03)
[2021-07-03] MEDS: CHOLECALCIFEROL 1,000 UNITS 25 MCG TAB PO SCH (21:03)
[2021-07-03] MEDS: CALCIUM CARBONATE 1250MG TAB PO SCH (21:03)
[2021-07-04] MEDS: oxyCODONE HCL IR 5 MG TAB (IMMEDIATE RELEASE) PO PRN ×4 (05:09→20:40)
[2021-07-04] MEDS: POLYETHYLENE (MIRALAX) 17 GM PACK PO PRN (05:09)
[2021-07-04] MEDS: ACETAMINOPHEN 325 MG TAB PO PRN ×2 (05:09→20:40)
[2021-07-04] MEDS: INSULIN GLARGINE SOLOSTAR 100 UNITS/ML 3 ML PEN SQ SCH (08:22)
[2021-07-04] MEDS: INSULIN HUMAN NPH SC SCH (08:22)
[2021-07-04] MEDS: INSULIN ASPART PER UNIT SQ SCH ×4 (08:22→20:41)
[2021-07-04] MEDS: FLUTICASONE FUROATE 100MCG 14 PUFFS/INHALER INH SCH (08:23)
[2021-07-04] MEDS: FINASTERIDE 5 MG TAB PO SCH (08:23)
[2021-07-04] MEDS: FUROSEMIDE 20 MG TAB PO SCH (08:23)
[2021-07-04] MEDS: UMECLIDINIUM/VILANTEROL 62.5/25MCG 7 PUFFS/INHALER INH SCH (08:23)
[2021-07-04] MEDS: CYANOCOBALAMIN (B-12) 500 MCG TABLET PO SCH (08:23)
[2021-07-04] MEDS: FEXOFENADINE HCL 180 MG TAB PO SCH (08:23)
[2021-07-04] MEDS: LEFLUNOMIDE 10 MG TAB PO SCH (08:24)
[2021-07-04] MEDS: SENNA 8.6 MG TAB PO SCH (08:24)
[2021-07-04] MEDS: TOPIRAMATE 100 MG TAB PO SCH ×2 (08:24→20:32)
[2021-07-04] MEDS: levETIRAcetam 500 MG TAB PO SCH (08:24)
[2021-07-04] MEDS: CARBIDOPA/LEVODOPA 25/100MG TAB PO SCH ×3 (08:24→20:32)
[2021-07-04] MEDS: COLCHICINE 0.6 MG TAB PO SCH ×2 (08:24→20:32)
[2021-07-04] MEDS: PENICILLIN V POTASSIUM 500 MG TAB PO SCH ×4 (08:24→20:32)
[2021-07-04] MEDS: predniSONE 20 MG TAB PO SCH (08:24)
[2021-07-04 08:25] LABS: Basophils # (auto) 0.01 K/uL (0-0.2); Basophils % (auto) 0.2 %; Eosinophils # (auto) 0.04 K/uL (0-0.5); Eosinophils % (auto) 0.8 %; Hematocrit (blood only) 37.6 % (42-52); Hemoglobin 11.9 g/dL (14.0-18.0); Immature Granulocytes # (auto) 0.04 K/uL (0.00-0.02); Immature Granulocytes % (auto) 0.8 %; Lymphocytes % (auto) 16.9 %; Mean Corpuscular Hemoglobin 26.8 pg (25-34); Mean Corpuscular Hgb Conc 31.6 g/dL (32-36); Mean Corpuscular Volume 84.7 fL (80-100); Mean Platelet Volume 9.2 fL (7.4-10.4); Monocytes # (auto) 0.45 K/uL (0.11-0.59); Monocytes % (auto) 8.5 %; Neutrophils # (auto) 3.88 K/uL (1.4-6.5); Neutrophils % (auto) 72.8 %; Platelet Count 157 K/uL (130-400); RDW Coefficient of Variation 19.4 % (11.5-14.5); RDW Standard Deviation 59.7 fL (36.4-46.3); Red Blood Count 4.44 M/uL (4.7-6.1); White Blood Count 5.32 K/uL (4.8-10.8)
[2021-07-04] MEDS: GABAPENTIN 300 MG CAP PO SCH ×2 (08:25→20:32)
[2021-07-04] MEDS: DICLOFENAC SOD 1% GEL 100 GM TUBE EXT SCH ×4 (08:25→20:33)
[2021-07-04 08:33] LABS: INR 1.5 (0.9-1.1); Prothrombin Time 15.6 Seconds (9.0-12.0)
[2021-07-04] MEDS ORDERED: ENOXAPARIN 1 MG/KG SQ SCH (08:45)
[2021-07-04 08:49] LABS: Albumin Globulin Ratio 1.4 (0.9-2); Albumin Level 3.7 gm/dl (3.4-5.0); BUN Creatinine Ratio 25.9 (10-20); Bilirubin,Total 0.4 mg/dl (0.2-1.0); Calcium 8.9 mg/dl (8.5-10.1); Creatinine Clr Calc Pharmacy 57.9 ml/min; Est GFR (African American) 54.7 ml/min; Est GFR (Non-African American) 47.2 ml/min; Globulin 2.7 gm/dl (2.5-4.0); Potassium 3.7 mmol/L (3.5-5.1); Total Protein 6.4 gm/dl (6.0-8.3)
[2021-07-04 08:52] LABS: Troponin I 35.16 ng/ml (0-0.04)
[2021-07-04] MEDS: ENOXAPARIN INJ 120 MG/0.8 ML SYR SQ SCH ×2 (10:07→20:33)
[2021-07-04 11:42] LABS: Estimated Average Glucose 151 mg/dl; Hemoglobin A1C 6.9 % (4.5-5.6)
[2021-07-04] MEDS ORDERED: POTASSIUM CHLORIDE 10 MEQ TABCR PO STA (12:01)
[2021-07-04] MEDS: POLYETHYLENE (MIRALAX) 17 GM PACK PO SCH ×2 (16:19→17:14)
[2021-07-04] MEDS: WARFARIN SOD 10 MG TAB PO SCH (16:20)
--- NOTE | 2021-07-04 18:06 | Hospitalist Progress Note ---
Date of Service July 04, 2021 Assessment & Plan (1) Myocarditis: Plan: Patient dx late April/early May 2021. Presented with chest pain, markedly elevated troponins (>30). s/p heart cath during that admission - L main stent patent, minimal CAD otherwise. 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 He also has h/o myocarditis in 04/2019, hospitalized in the [facility] region. Patient continues with refractory chest pain and ongoing/marked troponin elevation with values still >30. This is despite a prednisone pulse with slow taper, colchicine 0.6mg BID, and institution of Leflunomide. Of note - CPK is normal. ESR and CRP elevated, CMV, coxsackie, and parvovirus labs ordered, pending. Again exact etiology of myocarditis is uncertain but favored to be autoimmune/rheumatic. Previous hospitalist had extensive discussions with Dr Chau, [facility] cardiology (this is his primary bending press operator), and Dr Buckley - [facility] Rhe[facility]. Both advised tertiary care center referral. Need for advanced imaging of heart (cardiac MRI, etc), ?other Rx modalities (IVIG, others), and multi-specialty care. repeat limited echo to reassess his LV function appears still to be preserved Previous hospitalist called and spoke with the [facility] Patient ultimately accepted in transfer to [facility] [place] by Dr Ana Ng, hospitalist. Dr Buckley had made rheumatology in [place] aware of Mr Bradford's complex past medical history (Dr Richmond Geronimo). Have since increased his prednisone to 60mg/day while awaiting Tx to [place]. This is recommended by Dr Buckley. -Continue ongoing treatment for chest pain with OxyContin and oxycodone although ideally this is not a good long-term strategy -Continue colchicine 0.6 mg p.o. twice daily -He is not currently on aspirin as it was discontinued last admission while on colchicine -Continue telemetry monitoring-had a 3 and 5 beat run of VT in the last 24 hours (2) Elevated troponin: Plan: As above s/p heart cath 05/25/[address] Vincent - patent L main stent; other vessels without obstructive lesions thus, troponin elevation is not due to ischemia no evidence of pericarditis (3) Polymyositis: Plan: initial dx made in [place], [place] several years ago has been steroid-dependent for several years apparently had had a polymyositis panel in the past showing MDA5 level was elevated (per Dr Buckley - his level was 34, normal being <20) multiple attempts to Rx his polymyositis +/- questionable RA with rituxan, other meds not successful (records suggest he had a severe adverse rxn to the rituxan, etc) Dr Buckley initiated Leflunomide 05/2021 - patient with fatigue, etc that he attributes to the medication [id number] he remains on the med patient will need additional rheum w/u once he is transferred to [place] of note - all CPK levels going back several years are normal including CPK here (4) Hypokalemia: Plan: Replaced and resolved (5) CAD (coronary atherosclerotic disease): Plan: - Follows with Dr Chau. 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 A cardiac catheterization in April 2019 noted a patent left main stent and mild diffuse disease within the LAD, LCx, and RCA - ECHO 02/14/21 noted normal systolic function with ejection fraction 55-60% - S/P catheterization last admission w/o obstructive coronary disease - Continue statin -Currently holding aspirin while on high-dose colchicine as he is also on Coumadin-there is some risk of thinning the blood with colchicine (6) Chronic anemia: Plan: -H/H stable at 11.9 and improved from last admission on 05/24. (7) Interstitial lung disease: Plan: diagnosed several years ago - by physicians in [place], then at [facility] 2nd to rheumatoid arthritis? 05/2021 scanned office notes from pulmonary at [facility] (pt had telehealth visit) suggest he may not have ILD but chronic aspiration?? either way pulmonary status is stable at this time -Leflunomide was recently added, patient states he has been feeling worse since it was started. Medication is not known to cause myocarditis but is known to cause vasculitis. Could consider stopping this medication. (8) Diabetes: Plan: a1c 7.7% in 03/2021 and now down to 6.9% Continue basal and bolus insulin, pharmacy is managing -Continue Gabapentin for neuropathy (9) HLD (hyperlipidemia): Plan: -continue Atorvastatin 40 mg daily. (10) Parkinsonism: Plan: -He follows with Neurology Dr Sheikh -Continue Sinemet 25/100 (11) History of seizures: Plan: -Patient reports history of seizures- he has seen a headache specialist -Continue Keppra, Continue Topiramate, Continue Gabapentin -Seizure precautions. (12) History of aortic valve replacement: Plan: 2003 INR goal 2.5 to 3.5 INR today is now low at 1.5 Increase warfarin dose today to 10 mg Follow INR in the morning (13) PAF (paroxysmal atrial fibrillation): Plan: noted telemetry coumadin he is not on rate-controlling agents due to bradycardia Remains in sinus rhythm here (14) Chronic kidney disease, stage 3a: Plan: Creatinine has crept up slightly today to 1.4 He feels he is getting edematous Okay to increase Lasix to 20 mg once daily from 3 times per week Follow BMP in the morning Renally dose medications Avoid nephrotoxic medications (15) Rheumatoid arthritis: Plan: question of diagnosis dating back several years does not have joint manifestations of RA at this time apparently he has been RF negative in the past but weakly positive to anti-CCP previous thought was that his suspected ILD was due to RA following with Dr Buckley locally Continue leflunomide, prednisone (16) Pancytopenia: Plan: etiology? b12 level was <300 in April - add supplementation Folate level here normal TSH wnl 2nd to rheumatic disease? other? (17) History of prostate cancer: Plan: noted Plan: -Continued admission on med telemetry pending transfer to [place]. -DVT ppx with SCDs and Coumadin -Full Code. Admission and Anticipated Discharge Date Admission Date: July 01, 2021 Subjective Patient continues to use to have waxing and waning severe left-sided chest pain that improved with oxycodone but he is worried about becoming dependent on opioids. He tried antacids in the past that did not help at all. He is getting anxious about when he will have a bed at [facility]. Telemetry of sinus bradycardia with rates in the 50s, PACs, and a 3 beat and 5 beat run of V. tach. He is also concerned about constipation and would like his MiraLAX ordered 4 times a day. Review of Systems Review of Systems: All systems reviewed & are unremarkable except as noted in HPI & below Physical Exam Constitutional: WD/WN, vitals as above Eyes: + anicteric sclerae ENMT: external ear and nose normal, oropharynx normal (Missing dentition right maxilla) Neck: trachea midline, no thyromegaly Respiratory: normal respiratory effort, lungs clear to auscultation Cardiovascular: Rate/Rhythm: regular rate and regular rhythm Heart Sounds: + murmur Extremities: + edema (trace pitting edema legs to knees bilat) Chest (Breasts): Chest: normal inspection of chest Gastrointestinal (Abdomen): normal bowel sounds, soft, nontender, no hepatosplenomegaly Musculoskeletal: Extremities: extremities normal to inspection; no cyanosis and no clubbing Skin: no rashes, warm and dry Neurologic: moves all extremities and awake; no focal motor deficits Psychiatric: A+Ox3, euthymic affect Results & Data Results & Data ([facility]) Vital Signs (Past 12 Hours) Vital Signs Temp Pulse Pulse Resp BP BP Pulse Ox 07/04/21 15:54 36.7 C 64 20 115/66 91 07/04/21 15:32 36.7 C 133/66 07/04/21 11:02 36.5 C 64 16 114/65 97 07/04/21 07:01 36.5 C 54 L 132/75 97 07/04/21 06:56 54 L Laboratory Results 07/04/21 07/04/21 07/04/21 Range/Units 16:33 11:32 07:53 WBC (4.8-10.8) K/uL RBC (4.7-6.1) M/uL Hgb (14.0-18.0) g/dL Hct (42-52) % MCV (80-100) fL MCH (25-34) pg MCHC (32-36) g/dL RDW Std Deviation (36.4-46.3) fL RDW Coeff of Lianne (11.5-14.5) % Plt Count (130-400) K/uL MPV (7.4-10.4) fL Immature Gran % (Auto) % Neut % (Auto) % Lymph % (Auto) % [place] % (Auto) % Eos % (Auto) % Baso % (Auto) % Neut # (Auto) (1.4-6.5) K/uL Lymph # (Auto) (1.2-3.4) K/uL [place] # (Auto) (0.11-0.59) K/uL Eos # (Auto) (0-0.5) K/uL Baso # (Auto) (0-0.2) K/uL Immature Gran # (Auto) (0.00-0.02) K/uL PT (9.0-12.0) Seconds INR (0.9-1.1) Sodium (136-145) mmol/L Potassium (3.5-5.1) mmol/L Chloride (98-107) mmol/L Carbon Dioxide (21-32) mmol/L Anion Gap (3-11) BUN (6-23) mg/dl Creatinine (0.6-1.4) mg/dl Est Cr Clr Drug Dosing ml/min Est GFR ( Amer) ml/min Est GFR (Non-Af Amer) ml/min BUN/Creatinine Ratio (10-20) Glucose (70-99(Fasting)) mg/dl POC Glucose 174 H 152 H (70-99) mg/dl Estimat Average Glucose 151 mg/dl Hemoglobin A1c 6.9 H (4.5-5.6) % Calcium (8.5-10.1) mg/dl Total Bilirubin (0.2-1.0) mg/dl AST (13-39) U/L ALT (7-52) U/L Alkaline Phosphatase (34-104) U/L Troponin I (0-0.04) ng/ml Total Protein (6.0-8.3) gm/dl Albumin (3.4-5.0) gm/dl Globulin (2.5-4.0) gm/dl Albumin/Globulin Ratio (0.9-2) 07/04/21 07/04/21 07/04/21 Range/Units 07:53 07:53 07:53 WBC 5.32 (4.8-10.8) K/uL RBC 4.44 L (4.7-6.1) M/uL Hgb 11.9 L (14.0-18.0) g/dL Hct 37.6 L (42-52) % MCV 84.7 (80-100) fL MCH 26.8 (25-34) pg MCHC 31.6 L (32-36) g/dL RDW Std Deviation 59.7 H (36.4-46.3) fL RDW Coeff of Lianne 19.4 H (11.5-14.5) % Plt Count 157 (130-400) K/uL MPV 9.2 (7.4-10.4) fL Immature Gran % (Auto) 0.8 % Neut % (Auto) 72.8 % Lymph % (Auto) 16.9 % [place] % (Auto) 8.5 % Eos % (Auto) 0.8 % Baso % (Auto) 0.2 % Neut # (Auto) 3.88 (1.4-6.5) K/uL Lymph # (Auto) 0.90 L (1.2-3.4) K/uL [place] # (Auto) 0.45 (0.11-0.59) K/uL Eos # (Auto) 0.04 (0-0.5) K/uL Baso # (Auto) 0.01 (0-0.2) K/uL Immature Gran # (Auto) 0.04 H (0.00-0.02) K/uL PT 15.6 H (9.0-12.0) Seconds INR 1.5 H (0.9-1.1) Sodium 139 (136-145) mmol/L Potassium 3.7 (3.5-5.1) mmol/L Chloride 106 (98-107) mmol/L Carbon Dioxide 27 (21-32) mmol/L Anion Gap 6 (3-11) BUN 37 H (6-23) mg/dl Creatinine 1.43 H (0.6-1.4) mg/dl Est Cr Clr Drug Dosing 57.9 ml/min Est GFR ( Amer) 54.7 ml/min Est GFR (Non-Af Amer) 47.2 ml/min BUN/Creatinine Ratio 25.9 H (10-20) Glucose 119 H (70-99(Fasting)) mg/dl POC Glucose (70-99) mg/dl Estimat Average Glucose mg/dl Hemoglobin A1c (4.5-5.6) % Calcium 8.9 (8.5-10.1) mg/dl Total Bilirubin 0.4 (0.2-1.0) mg/dl AST 15 (13-39) U/L ALT 11 (7-52) U/L Alkaline Phosphatase 56 (34-104) U/L Troponin I 35.16 H* (0-0.04) ng/ml Total Protein 6.4 (6.0-8.3) gm/dl Albumin 3.7 (3.4-5.0) gm/dl Globulin 2.7 (2.5-4.0) gm/dl Albumin/Globulin Ratio 1.4 (0.9-2) 07/04/21 07/03/21 Range/Units 07:44 20:20 WBC (4.8-10.8) K/uL RBC (4.7-6.1) M/uL Hgb (14.0-18.0) g/dL Hct (42-52) % MCV (80-100) fL MCH (25-34) pg MCHC (32-36) g/dL RDW Std Deviation (36.4-46.3) fL RDW Coeff of Lianne (11.5-14.5) % Plt Count (130-400) K/uL MPV (7.4-10.4) fL Immature Gran % (Auto) % Neut % (Auto) % Lymph % (Auto) % [place] % (Auto) % Eos % (Auto) % Baso % (Auto) % Neut # (Auto) (1.4-6.5) K/uL Lymph # (Auto) (1.2-3.4) K/uL [place] # (Auto) (0.11-0.59) K/uL Eos # (Auto) (0-0.5) K/uL Baso # (Auto) (0-0.2) K/uL Immature Gran # (Auto) (0.00-0.02) K/uL PT (9.0-12.0) Seconds INR (0.9-1.1) Sodium (136-145) mmol/L Potassium (3.5-5.1) mmol/L Chloride (98-107) mmol/L Carbon Dioxide (21-32) mmol/L Anion Gap (3-11) BUN (6-23) mg/dl Creatinine (0.6-1.4) mg/dl Est Cr Clr Drug Dosing ml/min Est GFR ( Amer) ml/min Est GFR (Non-Af Amer) ml/min BUN/Creatinine Ratio (10-20) Glucose (70-99(Fasting)) mg/dl POC Glucose 129 H 223 H (70-99) mg/dl Estimat Average Glucose mg/dl Hemoglobin A1c (4.5-5.6) % Calcium (8.5-10.1) mg/dl Total Bilirubin (0.2-1.0) mg/dl AST (13-39) U/L ALT (7-52) U/L Alkaline Phosphatase (34-104) U/L Troponin I (0-0.04) ng/ml Total Protein (6.0-8.3) gm/dl Albumin (3.4-5.0) gm/dl Globulin (2.5-4.0) gm/dl Albumin/Globulin Ratio (0.9-2) PG Care Time/CCT Total # of Minutes Spent Total Time Spent with Patient: Total time spent is greater than 50% in coordination of care (as documented) at patient's floor/unit and/or counseling patient: Coding Level of Care Code 22022 Subseq Hosp Care Lvl 3 Diagnoses Hypokalemia E87.6 CAD (coronary atherosclerotic disease) I25.10 Chronic anemia D64.9 Interstitial lung disease J84.9 Diabetes E11.42; Z79.4 Diabetes mellitus complication detail: with polyneuropathy Diabetes mellitus complication status: with neurologic complications Diabetes mellitus adjunct faculty for medical terminology insulin use: with adjunct faculty for medical terminology use Diabetes mellitus type: type 2 HLD (hyperlipidemia) E78.2 Hyperlipidemia type: mixed hyperlipidemia Parkinsonism G20 Parkinsonism type: unspecified History of seizures Z87.898 Myocarditis I51.4 Elevated troponin R77.8 Polymyositis M33.20 History of aortic valve replacement Z95.2 PAF (paroxysmal atrial fibrillation) I48.0 Chronic kidney disease, stage 3a N18.3 Rheumatoid arthritis M06.9 Rheumatoid arthritis location: unspecified site Rheumatoid factor presence: unspecified presence Pancytopenia D61.818 History of prostate cancer Z85.46 (1) Rheumatoid arthritis Rheumatoid arthritis location: unspecified site Rheumatoid factor presence: unspecified presence Qualified Code(s): M06.9 - Rheumatoid arthritis, unspecified (2) Diabetes Diabetes mellitus complication detail: with polyneuropathy Diabetes mellitus complication status: with neurologic complications Diabetes mellitus penitentiary insulin use: with adjunct faculty for medical terminology use Diabetes mellitus type: type 2 Qualified Code(s): E11.42 - Type 2 diabetes mellitus with diabetic polyneuropathy; Z79.4 - correction (current) use of insulin (3) HLD (hyperlipidemia) Hyperlipidemia type: mixed hyperlipidemia Qualified Code(s): E78.2 - Mixed hyperlipidemia (4) Parkinsonism Parkinsonism type: unspecified Qualified Code(s): G20 - Parkinson's disease
[2021-07-04] MEDS: ATORVASTATIN 40 MG TAB PO SCH (20:32)
[2021-07-04] MEDS: allopurinoL 100 MG TAB PO SCH (20:32)
[2021-07-04] MEDS: levETIRAcetam 250 MG TAB PO SCH (20:32)
[2021-07-04] MEDS: CHOLECALCIFEROL 1,000 UNITS 25 MCG TAB PO SCH (20:32)
[2021-07-04] MEDS: CALCIUM CARBONATE 1250MG TAB PO SCH (20:32)
[2021-07-04] MEDS: oxyCODONE HCL 10 MG TABCR (OxyCONTIN) PO SCH (20:40)
[2021-07-05] MEDS: oxyCODONE HCL IR 5 MG TAB (IMMEDIATE RELEASE) PO PRN ×2 (01:46→12:16)
[2021-07-05] MEDS: ACETAMINOPHEN 325 MG TAB PO PRN (01:46)
[2021-07-05] MEDS: POLYETHYLENE (MIRALAX) 17 GM PACK PO SCH ×4 (01:46→17:55)
[2021-07-05 07:21] LABS: Basophils # (auto) 0.01 K/uL (0-0.2); Basophils % (auto) 0.2 %; Eosinophils # (auto) 0.01 K/uL (0-0.5); Eosinophils % (auto) 0.2 %; Hematocrit (blood only) 37.2 % (42-52); Hemoglobin 11.8 g/dL (14.0-18.0); Immature Granulocytes # (auto) 0.04 K/uL (0.00-0.02); Immature Granulocytes % (auto) 0.7 %; Lymphocytes # (auto) 0.73 K/uL (1.2-3.4); Lymphocytes % (auto) 13.3 %; Mean Corpuscular Hemoglobin 26.9 pg (25-34); Mean Corpuscular Hgb Conc 31.7 g/dL (32-36); Mean Corpuscular Volume 84.7 fL (80-100); Mean Platelet Volume 9.3 fL (7.4-10.4); Monocytes # (auto) 0.33 K/uL (0.11-0.59); Neutrophils # (auto) 4.36 K/uL (1.4-6.5); Neutrophils % (auto) 79.6 %; Platelet Count 149 K/uL (130-400); RDW Coefficient of Variation 19.6 % (11.5-14.5); RDW Standard Deviation 61.1 fL (36.4-46.3); Red Blood Count 4.39 M/uL (4.7-6.1); White Blood Count 5.48 K/uL (4.8-10.8)
[2021-07-05 07:32] LABS: INR 1.9 (0.9-1.1); Prothrombin Time 19.8 Seconds (9.0-12.0)
[2021-07-05 07:41] LABS: BUN Creatinine Ratio 29.1 (10-20); Calcium 8.1 mg/dl (8.5-10.1); Est GFR (African American) 63.2 ml/min; Est GFR (Non-African American) 54.5 ml/min; Magnesium 2.1 mg/dl (1.7-2.4); Potassium 3.8 mmol/L (3.5-5.1)
[2021-07-05] MEDS: FLUTICASONE FUROATE 100MCG 14 PUFFS/INHALER INH SCH (07:42)
[2021-07-05] MEDS: UMECLIDINIUM/VILANTEROL 62.5/25MCG 7 PUFFS/INHALER INH SCH (07:42)
[2021-07-05] MEDS: predniSONE 20 MG TAB PO SCH (07:42)
[2021-07-05] MEDS: CYANOCOBALAMIN (B-12) 500 MCG TABLET PO SCH (07:42)
[2021-07-05] MEDS: LEFLUNOMIDE 10 MG TAB PO SCH (07:43)
[2021-07-05] MEDS: FUROSEMIDE 20 MG TAB PO SCH (07:43)
[2021-07-05] MEDS: FINASTERIDE 5 MG TAB PO SCH (07:43)
[2021-07-05] MEDS: SENNA 8.6 MG TAB PO SCH (07:43)
[2021-07-05] MEDS: FEXOFENADINE HCL 180 MG TAB PO SCH (07:44)
[2021-07-05] MEDS: COLCHICINE 0.6 MG TAB PO SCH ×2 (07:44→20:06)
[2021-07-05] MEDS: levETIRAcetam 500 MG TAB PO SCH (07:44)
[2021-07-05] MEDS: PENICILLIN V POTASSIUM 500 MG TAB PO SCH ×4 (07:44→20:05)
[2021-07-05] MEDS: GABAPENTIN 300 MG CAP PO SCH ×2 (07:45→20:06)
[2021-07-05] MEDS: CARBIDOPA/LEVODOPA 25/100MG TAB PO SCH ×3 (07:45→20:05)
[2021-07-05] MEDS: TOPIRAMATE 100 MG TAB PO SCH ×2 (07:45→20:05)
[2021-07-05] MEDS: ENOXAPARIN INJ 120 MG/0.8 ML SYR SQ SCH (07:46)
[2021-07-05] MEDS: DICLOFENAC SOD 1% GEL 100 GM TUBE EXT SCH ×3 (07:48→16:35)
[2021-07-05] MEDS: INSULIN HUMAN NPH SC SCH (08:05)
[2021-07-05] MEDS: INSULIN ASPART PER UNIT SQ SCH ×4 (08:06→20:17)
[2021-07-05] MEDS: INSULIN GLARGINE SOLOSTAR 100 UNITS/ML 3 ML PEN SQ SCH (08:06)
--- NOTE | 2021-07-05 09:16 | XRay Report ---
XR chest 2V PA/lateral HISTORY: hemoptysis COMPARISON: Chest 06/30/2021. FINDINGS: No pneumothorax. No pleural effusions. There are suture material within the left lung base. The heart remains mildly enlarged. There are poststernotomy changes and a cardiac valve prosthesis. No new focal lung consolidations to suggest pneumonia. No evidence for pulmonary edema. Mild right ba silar interstitial thickening which appears chronic. This remains unchanged. IMPRESSION: Stable mild cardiomegaly. Otherwise, no acute process within the chest. ACT 112: Negative or not required by law. Electronically signed by: Jc Che M.D. 07/05/2021 9:15 AM
--- NOTE | 2021-07-05 13:22 | Pharmacy Report ---
Pharmacy Glycemic Short Note 2 - Date of Service July 05, 2021 - Glycemic Short BSG Results (Last 24 hours): 07/04/21 07/04/21 07/05/21 16:33 20:10 06:57 Glucose 179 H POC Glucose 174 H 188 H 07/05/21 07/05/21 08:02 11:50 Glucose POC Glucose 187 H 207 H OUTPATIENT ANTIDIABETIC REGIMEN: * Trulicity 1.5 mg SQ weekly * Lantus 20 units BID + Novolog with meals * NPH 1 unit per 1 mg of steroids * HbA1c: 6.9% (07/04/21) ASSESSMENT: 07/05/21: * BSGs have been trending up throughout the day. * Novolog parameters adjusted today to provide additional prandial coverage. * Fasting BSG was above goal this morning. If this becomes a trend, will need to consider increasing Lantus. * Pt is awaiting transfer to [facility], pending bed availability. 07/03 * Patient's BSGs yesterday were [phone] mg/dL. Fasting today was 133 mg/dL. * Continue Lantus 20 units daily. * Increase NPH to 40 units and give this morning with prednisone 60 mg. * Continue Novolog as reasonable BSGs yesterday. Background * Patient's BSGs yesterday were [phone] mg/dL. Fasting today was 263 mg/dL. * Patient received 40 units of Lantus plus 30 units of bolus yesterday (total of 70 units). * Patient received 10 units of prednisone in morning and then 50 mg of prednisone at bedtime. Started 60 mg of prednisone this morning. * Pharmacy consulted after patient received morning insulin - 20 units of Lantus plus Novolog. * Lunch BSG was 306 mg/dL. * Initially NPH was not given because patient received substantial amount of basal insulin yesterday. Typically receives around 20 units of Lantus/day in house and received 40 units yesterday. Patient insisted he receive NPH and agreed upon receiving 30 units (gave less than home dose since this was being given at lunchtime) * Will d/c Lantus for now (received 20 units this morning) and re-evaluate tomorrow. * Continue Novolog as reasonable compared to last admission. PLAN FOR INPATIENT GLYCEMIC CONTROL: * Hold outpatient SQ diabetes medications * Basal insulin * Lantus 20 units SQ daily * NPH 40 units SQ daily * Bolus insulin * NovoLog per scale ACHS or Q6hrs while NPO * Goal Range: Low 110 mg/dL - High 140 mg/dL * Correction Factor: 20 mg/dL/unit * Nutritional / Prandial insulin per carb ratio of 1 unit per 4 grams CHO consumed
[2021-07-05] MEDS: WARFARIN SOD 10 MG TAB PO SCH (16:23)
[2021-07-05] MEDS ORDERED: DICLOFENAC SOD 1% GEL 100 GM TUBE EXT PRN (16:46)
--- NOTE | 2021-07-05 16:46 | Hospitalist Progress Note ---
Date of Service July 05, 2021 Assessment & Plan (1) Myocarditis: Plan: Patient dx late April/early May 2021. Presented with chest pain, markedly elevated troponins (>30). s/p heart cath during that admission on 05/25/2021- L main stent patent, minimal CAD otherwise. 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 He also has h/o myocarditis in 04/2019, hospitalized in the [facility]. Patient continues with refractory chest pain and ongoing/marked troponin elevation with values still >30. This is despite a prednisone pulse with slow taper, colchicine 0.6mg BID, and institution of Leflunomide. His prednisone dose was increased to 60 mg daily on 07/02 and he still has not had any improvement Of note - CPK is normal. ESR and CRP mildly elevated at 32 and 1.45 respectively CMV, coxsackie, and parvovirus labs ordered, pending. Lyme disease titer negative Again exact etiology of myocarditis is uncertain but favored to be autoimmune/rheumatic. Previous hospitalist had extensive discussions with Dr Chau, [facility] cardiology (this is his primary skid adzer), and Dr Buckley - [facility]. Both advised tertiary care center referral. Need for advanced imaging of heart (cardiac MRI, etc), ?other Rx modalities (IVIG, others), and multi-specialty care. repeat limited echo to reassess his LV function appears still to be preserved Previous hospitalist called and spoke with the [facility] center Patient ultimately accepted in [place] [facility] [place] Ana Ng, hospitalist. Dr Buckley had made rheumatology in [place] aware of Mr Bradford's complex past medical history (Dr Richmond Geronimo). However, on 07/05 I was advised that his insurance would not approve hospitalization at [facility] in [place] I spent 150 minutes on 07/05 in discussions with various specialist regarding his potential transfer to [facility]. I discussed his care with his primary skid adzer, Dr. Chau, as well as his primary cath lab, Dr. Buckley. I also discussed his care with the skid adzer, hospitalist, and cath lab at [facility]. They said that they no longer do cardiac biopsies for myocarditis as the risk outweighs the benefit, but did recommend cardiac MRI however the wait list for this shows no availability till November 2021 and an inpatient transfer would not speed up this process. The cath lab also did not think that his issues seem to be rheumatologic as his pain is not improving even with very high doses of prednisone. He was in agreement with checking for coxsackievirus as above He was not accepted in transfer to [facility]. -will attempt to treat for possible vasospasm with isosorbide 30 mg once daily, first dose now -Continue ongoing treatment for chest pain with OxyContin and increased dose to 10 mg p.o. twice daily and continue as needed use of oxycodone 5 mg p.o. every 4 hours short acting -Continue colchicine 0.6 mg p.o. twice daily -He is not currently on aspirin as it was discontinued last admission while on colchicine -Continue telemetry monitoring-has occasional short runs of asymptomatic VT -We will attempt to control chest pain with the above measures and get him discharged to home with plans for cardiac MRI as an outpatient -I was also given the names of 2 cardiologists at [facility] by the skid adzer I spoke to today that would specialize in his condition. Their names are Dr. Jeter and Dr. 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 apparently had had a polymyositis panel in the past showing MDA5 level was el evated (per Dr Buckley - his level was 34, normal being <20) multiple attempts to Rx his polymyositis +/- questionable RA with rituxan, other meds not successful (records suggest he had a severe adverse rxn to the rituxan, etc) Dr Buckley initiated Leflunomide 05/2021 - patient with fatigue, etc that he attributes to the medication [id number] he remains on the med patient will need additional rheum w/u after discharge of note - all CPK levels going back several years are normal including CPK here (4) Hypokalemia: Plan: Replaced and resolved (5) CAD (coronary atherosclerotic disease): Plan: - Follows with Dr Chau. 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 A cardiac catheterization in April 2019 noted a patent left main stent and mild diffuse disease within the LAD, LCx, and RCA - ECHO 02/14/21 noted normal systolic function with ejection fraction 55-60% - S/P catheterization last admission w/o obstructive coronary disease - Continue statin -Currently holding aspirin while on high-dose colchicine as he is also on Coumadin-there is some risk of thinning the blood with colchicine (6) Chronic anemia: Plan: -H/H stable at 11.9 and improved from last admission on 05/24. (7) Interstitial lung disease: Plan: diagnosed several years ago - by physicians in [place], then at [facility] 2nd to rheumatoid arthritis? 05/2021 scanned office notes from pulmonary at [facility] (pt had telehealth visit) suggest he may not have ILD but chronic aspiration?? either way pulmonary status is stable at this time -Leflunomide was recently added, patient states he has been feeling worse since it was started. Medication is not known to cause myocarditis but is known to cause vasculitis. Could consider stopping this medication. With some scant hemoptysis on 07/05, hemoglobin normal, pulse ox normal on room air Follow clinically, no need for pulmonology consultation at this point (8) Diabetes: Plan: a1c 7.7% in 03/2021 and now down to 6.9% Continue basal and bolus insulin, pharmacy is managing -Continue Gabapentin for neuropathy (9) HLD (hyperlipidemia): Plan: -continue Atorvastatin 40 mg daily. (10) Parkinsonism: Plan: -He follows with Neurology Dr Sheikh -Continue Sinemet (11) History of seizures: Plan: -Patient reports history of seizures- he has seen a headache specialist -Continue Keppra, Continue Topiramate, Continue Gabapentin -Seizure precautions. (12) History of aortic valve replacement: Plan: 2003 INR goal 2.5 to 3.5 INR still below goal range at 1.9 Continue increased dose of warfarin 10 mg Continue bridging with therapeutic dosing of Lovenox Follow INR in the morning (13) PAF (paroxysmal atrial fibrillation): Plan: noted telemetry coumadin he is not on rate-controlling agents due to bradycardia Remains in sinus rhythm here (14) Chronic kidney disease, stage 3a: Plan: Creatinine improved today at 1.2 He feels he is getting edematous Have since increased Lasix to 20 mg once daily from 3 times per week Follow BMP in the morning Renally dose medications Avoid nephrotoxic medications (15) Rheumatoid arthritis: Plan: question of diagnosis dating back several years does not have joint manifestations of RA at this time apparently he has been RF negative in the past but weakly positive to anti-CCP previous thought was that his suspected ILD was due to RA following with Dr Buckley locally Continue leflunomide, prednisone (16) Pancytopenia: Plan: etiology? b12 level was <300 in April - add supplementation Folate level here normal TSH wnl 2nd to rheumatic disease? other? (17) History of prostate cancer: Plan: noted Plan: -Continued admission on med telemetry, now hopeful for discharge to home after pain is controlled -DVT ppx with SCDs and Coumadin -Full Code. Admission and Anticipated Discharge Date Admission Date: July 01, 2021 Subjective Patient continues to have ongoing chest pain that is partially relieved by opioids. He did have some dark brown sputum that he thought looked bloody this morning. Telemetry with normal sinus rhythm, PACs, rates in the 60s, a single 10 beat run of VT. Otherwise, he is eating and drinking, able to ambulate to the bathroom and back. I spent 150 minutes today in discussions with various specialist regarding his transfer to [facility]. His insurance would not approve authorization for his original transfer to [facility]. I discussed his care with his primary skid adzer, Dr. Chau, as well as his primary cath lab, Dr. Buckley. I also discussed his care with the skid adzer, hospitalist, and cath lab at [facility]. They said that they no longer do cardiac biopsies for myocarditis as the risk outweighs the benefit, but did recommend cardiac MRI however the wait list for this shows no availability till November 2021 and an inpatient transfer would not speed up this process. The cath lab also did not think that his issues seem to be rheumatologic as his pain is not improving even with very high doses of prednisone. He was not accepted in transfer to [facility]. Review of Systems Review of Systems: All systems reviewed & are unremarkable except as noted in HPI & below Physical Exam Constitutional: WD/WN, vitals as above Eyes: + anicteric sclerae ENMT: external ear and nose normal, oropharynx normal (Missing dentition right maxilla) Neck: trachea midline, no thyromegaly Respiratory: normal respiratory effort, lungs clear to auscultation Cardiovascular: Rate/Rhythm: regular rate and regular rhythm Heart Sounds: + murmur Extremities: + edema (trace pitting edema legs to knees bilat) Chest (Breasts): Chest: normal inspection of chest Gastrointestinal (Abdomen): normal bowel sounds, soft, nontender, no hepatosplenomegaly Musculoskeletal: Extremities: extremities normal to inspection; no cyanosis and no clubbing Skin: no rashes, warm and dry Neurologic: moves all extremities and awake; no focal motor deficits Psychiatric: A+Ox3, euthymic affect Lymphatic: no lymphedema Results & Data Results & Data ([facility]) Vital Signs (Past 12 Hours) Vital Signs Temp Pulse Pulse Resp BP Pulse Ox 07/05/21 15:05 36.3 C L 68 16 129/68 93 07/05/21 07:48 54 L 07/05/21 07:36 36.4 C L 58 L 16 141/82 H 95 Laboratory Results 07/05/21 07/05/21 07/05/21 Range/Units 20:05 16:50 11:50 WBC (4.8-10.8) K/uL RBC (4.7-6.1) M/uL Hgb (14.0-18.0) g/dL Hct (42-52) % MCV (80-100) fL MCH (25-34) pg MCHC (32-36) g/dL RDW Std Deviation (36.4-46.3) fL RDW Coeff of Lianne (11.5-14.5) % Plt Count (130-400) K/uL MPV (7.4-10.4) fL Immature Gran % (Auto) % Neut % (Auto) % Lymph % (Auto) % Taney % (Auto) % Eos % (Auto) % Baso % (Auto) % Neut # (Auto) (1.4-6.5) K/uL Lymph # (Auto) (1.2-3.4) K/uL Taney # (Auto) (0.11-0.59) K/uL Eos # (Auto) (0-0.5) K/uL Baso # (Auto) (0-0.2) K/uL Immature Gran # (Auto) (0.00-0.02) K/uL PT (9.0-12.0) Seconds INR (0.9-1.1) Sodium (136-145) mmol/L Potassium (3.5-5.1) mmol/L Chloride (98-107) mmol/L Carbon Dioxide (21-32) mmol/L Anion Gap (3-11) BUN (6-23) mg/dl Creatinine (0.6-1.4) mg/dl Est Cr Clr Drug Dosing ml/min Est GFR ( Amer) ml/min Est GFR (Non-Af Amer) ml/min BUN/Creatinine Ratio (10-20) Glucose (70-99(Fasting)) mg/dl POC Glucose 192 H 178 H 207 H (70-99) mg/dl Calcium (8.5-10.1) mg/dl Magnesium (1.7-2.4) mg/dl 07/05/21 07/05/21 07/05/21 Range/Units 08:02 06:57 06:57 WBC (4.8-10.8) K/uL RBC (4.7-6.1) M/uL Hgb (14.0-18.0) g/dL Hct (42-52) % MCV (80-100) fL MCH (25-34) pg MCHC (32-36) g/dL RDW Std Deviation (36.4-46.3) fL RDW Coeff of Lianne (11.5-14.5) % Plt Count (130-400) K/uL MPV (7.4-10.4) fL Immature Gran % (Auto) % Neut % (Auto) % Lymph % (Auto) % Taney % (Auto) % Eos % (Auto) % Baso % (Auto) % Neut # (Auto) (1.4-6.5) K/uL Lymph # (Auto) (1.2-3.4) K/uL Taney # (Auto) (0.11-0.59) K/uL Eos # (Auto) (0-0.5) K/uL Baso # (Auto) (0-0.2) K/uL Immature Gran # (Auto) (0.00-0.02) K/uL PT 19.8 H (9.0-12.0) Seconds INR 1.9 H (0.9-1.1) Sodium 137 (136-145) mmol/L Potassium 3.8 (3.5-5.1) mmol/L Chloride 106 (98-107) mmol/L Carbon Dioxide 25 (21-32) mmol/L Anion Gap 6 (3-11) BUN 37 H (6-23) mg/dl Creatinine 1.27 (0.6-1.4) mg/dl Est Cr Clr Drug Dosing 62.0 ml/min Est GFR ( Amer) 63.2 ml/min Est GFR (Non-Af Amer) 54.5 ml/min BUN/Creatinine Ratio 29.1 H (10-20) Glucose 179 H (70-99(Fasting)) mg/dl POC Glucose 187 H (70-99) mg/dl Calcium 8.1 L (8.5-10.1) mg/dl Magnesium 2.1 (1.7-2.4) mg/dl 07/05/21 Range/Units 06:57 WBC 5.48 (4.8-10.8) K/uL RBC 4.39 L (4.7-6.1) M/uL Hgb 11.8 L (14.0-18.0) g/dL Hct 37.2 L (42-52) % MCV 84.7 (80-100) fL MCH 26.9 (25-34) pg MCHC 31.7 L (32-36) g/dL RDW Std Deviation 61.1 H (36.4-46.3) fL RDW Coeff of Lianne 19.6 H (11.5-14.5) % Plt Count 149 (130-400) K/uL MPV 9.3 (7.4-10.4) fL Immature Gran % (Auto) 0.7 % Neut % (Auto) 79.6 % Lymph % (Auto) 13.3 % Taney % (Auto) 6.0 % Eos % (Auto) 0.2 % Baso % (Auto) 0.2 % Neut # (Auto) 4.36 (1.4-6.5) K/uL Lymph # (Auto) 0.73 L (1.2-3.4) K/uL Taney # (Auto) 0.33 (0.11-0.59) K/uL Eos # (Auto) 0.01 (0-0.5) K/uL Baso # (Auto) 0.01 (0-0.2) K/uL Immature Gran # (Auto) 0.04 H (0.00-0.02) K/uL PT (9.0-12.0) Seconds INR (0.9-1.1) Sodium (136-145) mmol/L Potassium (3.5-5.1) mmol/L Chloride (98-107) mmol/L Carbon Dioxide (21-32) mmol/L Anion Gap (3-11) BUN (6-23) mg/dl Creatinine (0.6-1.4) mg/dl Est Cr Clr Drug Dosing ml/min Est GFR ( Amer) ml/min Est GFR (Non-Af Amer) ml/min BUN/Creatinine Ratio (10-20) Glucose (70-99(Fasting)) mg/dl POC Glucose (70-99) mg/dl Calcium (8.5-10.1) mg/dl Magnesium (1.7-2.4) mg/dl PG Care Time/CCT Total # of Minutes Spent Total Time Spent with Patient: Total time spent is greater than 50% in coordination of care (as documented) at patient's floor/unit and/or counseling patient: Prolonged Care Time Prolonged Care Time: Yes Total Prolonged Care Time: 150 Coding Level of Care Code 15615 Subseq Hosp Care Lvl 3 (25 - SIGNIFICANT, SEPARATELY IDENTIFIABLE ) Diagnoses Myocarditis I51.4 Elevated troponin R77.8 Polymyositis M33.20 Hypokalemia E87.6 CAD (coronary atherosclerotic disease) I25.10 Chronic anemia D64.9 Interstitial lung disease J84.9 Diabetes E11.42; Z79.4 Diabetes mellitus complication detail: with polyneuropathy Diabetes mellitus complication status: with neurologic complications Diabetes mellitus rodent exterminator insulin use: with rodent exterminator use Diabetes mellitus type: type 2 HLD (hyperlipidemia) E78.2 Hyperlipidemia type: mixed hyperlipidemia Parkinsonism G20 Parkinsonism type: unspecified History of seizures Z87.898 History of aortic valve replacement Z95.2 PAF (paroxysmal atrial fibrillation) I48.0 Chronic kidney disease, stage 3a N18.3 Rheumatoid arthritis M06.9 Rheumatoid arthritis location: unspecified site Rheumatoid factor presence: unspecified presence Pancytopenia D61.818 History of prostate cancer Z85.46 Additional Codes Prolonged Care Time - Prolonged Care Time: Yes ([id number]) (1) Rheumatoid arthritis Rheumatoid arthritis location: unspecified site Rheumatoid factor presence: unspecified presence Qualified Code(s): M06.9 - Rheumatoid arthritis, unspecified (2) Diabetes Diabetes mellitus complication detail: with polyneuropathy Diabetes mellitus complication status: with neurologic complications Diabetes mellitus care home insulin use: with rodent exterminator use Diabetes mellitus type: type 2 Qualified Code(s): E11.42 - Type 2 diabetes mellitus with diabetic polyneuropathy; Z79.4 - manager long term care (current) use of insulin (3) HLD (hyperlipidemia) Hyperlipidemia type: mixed hyperlipidemia Qualified Code(s): E78.2 - Mixed hyperlipidemia (4) Parkinsonism Parkinsonism type: unspecified Qualified Code(s): G20 - Parkinson's disease
[2021-07-05] MEDS: ISOSORBIDE MONO EXTENDED REL 30 MG TABCR PO SCH (16:52)
[2021-07-05] MEDS: allopurinoL 100 MG TAB PO SCH (20:06)
[2021-07-05] MEDS: levETIRAcetam 250 MG TAB PO SCH (20:06)
[2021-07-05] MEDS: CHOLECALCIFEROL 1,000 UNITS 25 MCG TAB PO SCH (20:06)
[2021-07-05] MEDS: ATORVASTATIN 40 MG TAB PO SCH (20:06)
[2021-07-05] MEDS: oxyCODONE HCL 10 MG TABCR (OxyCONTIN) PO SCH (20:17)
[2021-07-05] MEDS: CALCIUM CARBONATE 1250MG TAB PO SCH (20:55)
[2021-07-05] MEDS ORDERED: ENOXAPARIN INJ 120 MG/0.8 ML SYR SQ SCH (21:00)
[2021-07-06] MEDS: POLYETHYLENE (MIRALAX) 17 GM PACK PO SCH ×5 (02:28→20:38)
[2021-07-06 06:18] LABS: Basophils # (auto) 0.01 K/uL (0-0.2); Basophils % (auto) 0.2 %; Eosinophils # (auto) 0.05 K/uL (0-0.5); Eosinophils % (auto) 0.8 %; Hematocrit (blood only) 34.4 % (42-52); Hemoglobin 10.9 g/dL (14.0-18.0); Immature Granulocytes # (auto) 0.06 K/uL (0.00-0.02); Lymphocytes # (auto) 0.96 K/uL (1.2-3.4); Lymphocytes % (auto) 15.6 %; Mean Corpuscular Hemoglobin 26.8 pg (25-34); Mean Corpuscular Hgb Conc 31.7 g/dL (32-36); Mean Corpuscular Volume 84.5 fL (80-100); Mean Platelet Volume 9.4 fL (7.4-10.4); Monocytes # (auto) 0.42 K/uL (0.11-0.59); Monocytes % (auto) 6.8 %; Neutrophils # (auto) 4.66 K/uL (1.4-6.5); Neutrophils % (auto) 75.6 %; Platelet Count 147 K/uL (130-400); RDW Coefficient of Variation 19.5 % (11.5-14.5); RDW Standard Deviation 60.5 fL (36.4-46.3); Red Blood Count 4.07 M/uL (4.7-6.1); White Blood Count 6.16 K/uL (4.8-10.8)
[2021-07-06 06:52] LABS: Alanine Aminotransferase 10 U/L (7-52); Albumin Globulin Ratio 1.5 (0.9-2); Albumin Level 3.3 gm/dl (3.4-5.0); Alkaline Phosphatase 62 U/L (34-104); Anion Gap 5 (3-11); Aspartate Aminotransferase 15 U/L (13-39); Bilirubin,Total 0.3 mg/dl (0.2-1.0); Blood Urea Nitrogen 38 mg/dl (6-23); C Reactive Protein < 0.50 mg/dl (0-0.5); Calcium 8.1 mg/dl (8.5-10.1); Carbon Dioxide 26 mmol/L (21-32); Chloride 108 mmol/L (98-107); Creatine Kinase 21 U/L (30-223); Creatinine Clr Calc Pharmacy 68.7 ml/min; Est GFR (African American) 71.2 ml/min; Est GFR (Non-African American) 61.5 ml/min; Globulin 2.2 gm/dl (2.5-4.0); Glucose 79 mg/dl (70-99(Fasting)); Potassium 3.5 mmol/L (3.5-5.1); Sodium 139 mmol/L (136-145); Total Protein 5.5 gm/dl (6.0-8.3)
[2021-07-06 06:53] LABS: Troponin I 27.83 ng/ml (0-0.04)
[2021-07-06 07:14] LABS: INR 3.9 (0.9-1.1); Prothrombin Time 38.2 Seconds (9.0-12.0)
[2021-07-06] MEDS: oxyCODONE HCL 10 MG TABCR (OxyCONTIN) PO SCH ×2 (08:43→20:39)
[2021-07-06] MEDS: FLUTICASONE FUROATE 100MCG 14 PUFFS/INHALER INH SCH (08:44)
[2021-07-06] MEDS: UMECLIDINIUM/VILANTEROL 62.5/25MCG 7 PUFFS/INHALER INH SCH (08:44)
[2021-07-06] MEDS: PENICILLIN V POTASSIUM 500 MG TAB PO SCH ×4 (08:45→20:34)
[2021-07-06] MEDS: predniSONE 50 MG TAB PO SCH (08:45)
[2021-07-06] MEDS: CARBIDOPA/LEVODOPA 25/100MG TAB PO SCH ×3 (08:45→20:36)
[2021-07-06] MEDS: TOPIRAMATE 100 MG TAB PO SCH ×2 (08:45→20:35)
[2021-07-06] MEDS: COLCHICINE 0.6 MG TAB PO SCH ×2 (08:45→20:35)
[2021-07-06] MEDS: PANTOprazole 40 MG TAB PO PRN ×2 (08:46→20:36)
[2021-07-06] MEDS: ISOSORBIDE MONO EXTENDED REL 30 MG TABCR PO SCH (08:46)
[2021-07-06] MEDS: SENNA 8.6 MG TAB PO SCH (08:46)
[2021-07-06] MEDS: GABAPENTIN 300 MG CAP PO SCH ×2 (08:46→20:35)
[2021-07-06] MEDS: FUROSEMIDE 20 MG TAB PO SCH (08:47)
[2021-07-06] MEDS: CYANOCOBALAMIN (B-12) 500 MCG TABLET PO SCH (08:47)
[2021-07-06] MEDS: LEFLUNOMIDE 10 MG TAB PO SCH (08:47)
[2021-07-06] MEDS: FEXOFENADINE HCL 180 MG TAB PO SCH (08:47)
[2021-07-06] MEDS: levETIRAcetam 500 MG TAB PO SCH (08:47)
[2021-07-06] MEDS: FINASTERIDE 5 MG TAB PO SCH (08:47)
[2021-07-06] MEDS: INSULIN ASPART PER UNIT SQ SCH ×4 (08:54→20:44)
[2021-07-06] MEDS: INSULIN HUMAN NPH SC SCH (08:55)
[2021-07-06 09:00] LABS: Lyme Ab IgG w/WB Rflx Negative (Negative); Lyme Ab IgM w/WB Rflx Negative (Negative)
--- NOTE | 2021-07-06 11:17 | Hospitalist Progress Note ---
Date of Service July 06, 2021 Assessment & Plan (1) Myocarditis: Plan: Patient dx late April/early May 2021. Presented with chest pain, markedly elevated troponins (>30). s/p heart cath during that admission on 05/25/2021- L main stent patent, minimal CAD otherwise. 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 He also has h/o myocarditis in 04/2019, hospitalized in the [facility]. Patient continues with refractory chest pain and ongoing/marked troponin elevation with values still >30 for several weeks, but now down to 27 on 07/06 This is despite a prednisone pulse with slow taper, colchicine 0.6mg BID, and institution of Leflunomide. His prednisone dose was increased to 60 mg daily on 07/02 and he still has not had any improvement Isosorbide 30 mg daily added on 07/05 for vasospasm as possible etiology Of note - CPK is normal on multiple checks ESR and CRP mildly elevated at 32 and 1.45 respectively, and now down to normal levels at 12 and undetectable CMV, coxsackie, and parvovirus labs ordered, still pending. Lyme disease titer negative Again exact etiology of myocarditis is uncertain but favored to be autoimmune/rheumatic, however with initiation of isosorbide, troponin is trending downward Previous hospitalist had extensive discussions with Dr Chau, [facility] cardiology (this is his primary lime vat tender), and Dr Buckley - [facility] Rheum. Both advised tertiary care center referral. Need for advanced imaging of heart (cardiac MRI, etc), ?other Rx modalities (IVIG, others), and multi-specialty care. repeat limited echo to reassess his LV function appears still to be preserved Previous hospitalist called and spoke with the [facility] transfer center Patient ultimately accepted in transfer to [facility] by Dr Ana Ng, hospitalist. Dr Buckley had made rheumatology in [place] aware of Mr Bradford's complex past medical history (Dr Richmond Geronimo). However, on 07/05 I was advised that his insurance would not approve hospitalizati on at [facility] in [place] I spent 150 minutes on 07/05 in discussions with various specialist regarding his potential transfer to [facility]. I discussed his care with his primary lime vat tender, Dr. Chau, as well as his primary sandfill operator, Dr. Buckley. I also discussed his care with the lime vat tender, hospitalist, and sandfill operator at [facility]. They said that they no longer do cardiac biopsies for myocarditis as the risk outweighs the benefit, but did recommend cardiac MRI however the wait list for this shows no availability till November 2021 and an inpatient transfer would not speed up this process. The sandfill operator also did not think that his issues seem to be rheumatologic as his pain is not improving even with very high doses of prednisone. He was in agreement with checking for coxsackievirus as above He was not accepted in transfer to [facility]. -will attempt to treat for possible vasospasm with isosorbide-troponin is improving-increase isosorbide to 60 mg daily today -Continue ongoing treatment for chest pain with OxyContin and increased dose to 10 mg p.o. twice daily and continue as needed use of oxycodone 5 mg p.o. every 4 hours short acting -Continue colchicine 0.6 mg p.o. twice daily for now, but as this has not helped, would start to taper off in the near future -He is not currently on aspirin as it was discontinued last admission while on colchicine. Restart aspirin after off colchicine -Continue telemetry monitoring-has occasional short runs of asymptomatic VT versus aberrant atrial tachycardia -We will attempt to control chest pain with the above measures and get him discharged to home with plans for cardiac MRI as an outpatient -I was also given the names of 2 cardiologists at [facility] by the lime vat tender I spoke to that would specialize in his condition. Their names are Dr. Jeter and Dr. 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 apparently had had a polymyositis panel in the past showing MDA5 level was elevated (per Dr Buckley - his level was 34, normal being <20) multiple attempts to Rx his polymyositis +/- questionable RA with rituxan, other meds not successful (records suggest he had a severe adverse rxn to the rituxan, etc) Dr Buckley initiated Leflunomide 05/2021 - patient with fatigue, etc that he attributes to the medication [id number] he remains on the med patient will need additional rheum w/u after discharge of note - all CPK levels going back several years are normal including CPK here (4) Hypokalemia: Plan: Replaced and resolved (5) CAD (coronary atherosclerotic disease): Plan: - Follows with Dr Cahu. 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 A cardiac catheterization in April 2019 noted a patent left main stent and mild diffuse disease within the LAD, LCx, and RCA - ECHO 02/14/21 noted normal systolic function with ejection fraction 55-60% - S/P catheterization last admission w/o obstructive coronary disease - Continue statin -Currently holding aspirin while on high-dose colchicine as he is also on Coumadin-there is some risk of thinning the blood with colchicine (6) Chronic anemia: Plan: -H/H stable at 11.9 and improved from last admission on 05/24. (7) Interstitial lung disease: Plan: diagnosed several years ago - by physicians in [place], then at [facility] 2nd to rheumatoid arthritis? 05/2021 scanned office notes from pulmonary at [facility] (pt had telehealth visit) suggest he may not have ILD but chronic aspiration?? either way pulmonary status is stable at this time -Leflunomide was recently added, patient states he has been feeling worse since it was started. Medication is not known to cause myocarditis but is known to cause vasculitis. Could consider stopping this medication. With some scant hemoptysis on 07/05, hemoglobin normal, pulse ox normal on room air No further hemoptysis on 07/06 Follow clinically, no need for pulmonology consultation at this point, and does have a follow-up visit scheduled with Dr. Ortega next week on 07/12 (8) Diabetes: Plan: a1c 7.7% in 03/2021 and now down to 6.9% Continue basal and bolus insulin, pharmacy is managing With some hypoglycemia on 07/06-Lantus has been discontinued -Continue Gabapentin for neuropathy (9) HLD (hyperlipidemia): Plan: -continue Atorvastatin 40 mg daily. (10) Parkinsonism: Plan: -He follows with Neurology Dr Sheikh -Continue Sinemet 25/100 (11) History of seizures: Plan: -Patient reports history of seizures- he has seen a headache specialist -Continue Keppra, Continue Topiramate, Continue Gabapentin -Seizure precautions. (12) History of aortic valve replacement: Plan: 2003 INR goal 2.5 to 3.5 INR now elevated at 3.9 after giving increased dose of warfarin x2 days Hold warfarin today Discontinue bridging Lovenox Plan to restart Coumadin at 7.5 mg daily tomorrow Follow INR in the morning (13) PAF (paroxysmal atrial fibrillation): Plan: noted telemetry coumadin he is not on rate-controlling agents due to bradycardia Remains in sinus rhythm here (14) Chronic kidney disease, stage 3a: Plan: Creatinine improved today at 1.1 He felthe was getting edematous and his Lasix was increased to once daily Edema now improved Follow BMP in the morning Renally dose medications Avoid nephrotoxic medications (15) Rheumatoid arthritis: Plan: question of diagnosis dating back several years does not have joint manifestations of RA at this time apparently he has been RF negative in the past but weakly positive to anti-CCP previous thought was that his suspected ILD was due to RA following with Dr Buckley locally Continue leflunomide, prednisone-tapering back to 10 mg dose Follow-up with rheumatology after discharge-Dr. Buckley is aware of the canceled transfer to tertiary care center (16) Pancytopenia: Plan: etiology? b12 level was <300 in April - add supplementation Folate level here normal TSH wnl 2nd to rheumatic disease? other? (17) History of prostate cancer: Plan: noted Plan: -Continued admission on med telemetry, now hopeful for discharge to home after pain is controlled -DVT ppx with SCDs and Coumadin -Full Code. Admission and Anticipated Discharge Date Admission Date: July 01, 2021 Subjective Patient still having left-sided chest pain, feels not much different than yesterday. No more hemoptysis. He is out of bed and ambulating to the bathroom back. Eating and drinking, moving his bowels several times. Telemetry with sinus rhythm, PACs, PVCs, and one 7 beat run of apparent atrial tachycardia Review of Systems Review of Systems: All systems reviewed & are unremarkable except as noted in HPI & below Physical Exam Constitutional: WD/WN, vitals as above Eyes: + anicteric sclerae ENMT: external ear and nose normal, oropharynx normal (Missing dentition right maxilla) Neck: trachea midline, no thyromegaly Respiratory: normal respiratory effort, lungs clear to auscultation Cardiovascular: Rate/Rhythm: regular rate and regular rhythm Heart Sounds: + murmur Extremities: no edema Chest (Breasts): Chest: normal inspection of chest Gastrointestinal (Abdomen): normal bowel sounds, soft, nontender, no hepatosplenomegaly Musculoskeletal: Extremities: extremities normal to inspection; no cyanosis and no clubbing Skin: no rashes, warm and dry Neurologic: moves all extremities and awake; no focal motor deficits Psychiatric: A+Ox3, euthymic affect Results & Data Results & Data ([facility]) Vital Signs (Past 12 Hours) Vital Signs Temp Pulse Pulse Resp BP Pulse Ox 07/06/21 11:15 36.3 C L 58 L 20 135/69 98 07/06/21 07:32 54 L 07/06/21 07:29 36.4 C L 62 16 117/68 97 07/06/21 03:05 36.3 C L 53 L 18 115/62 97 07/06/21 00:00 57 L Laboratory Results 07/06/21 07/06/21 07/06/21 Range/Units 11:28 07:39 06:33 WBC (4.8-10.8) K/uL RBC (4.7-6.1) M/uL Hgb (14.0-18.0) g/dL Hct (42-52) % MCV (80-100) fL MCH (25-34) pg MCHC (32-36) g/dL RDW Std Deviation (36.4-46.3) fL RDW Coeff of Lianne (11.5-14.5) % Plt Count (130-400) K/uL MPV (7.4-10.4) fL Immature Gran % (Auto) % Neut % (Auto) % Lymph % (Auto) % [place] % (Auto) % Eos % (Auto) % Baso % (Auto) % Neut # (Auto) (1.4-6.5) K/uL Lymph # (Auto) (1.2-3.4) K/uL [place] # (Auto) (0.11-0.59) K/uL Eos # (Auto) (0-0.5) K/uL Baso # (Auto) (0-0.2) K/uL Immature Gran # (Auto) (0.00-0.02) K/uL ESR (0-20) mm/hr PT (9.0-12.0) Seconds INR (0.9-1.1) Sodium (136-145) mmol/L Potassium (3.5-5.1) mmol/L Chloride (98-107) mmol/L Carbon Dioxide (21-32) mmol/L Anion Gap (3-11) BUN (6-23) mg/dl Creatinine (0.6-1.4) mg/dl Est Cr Clr Drug Dosing ml/min Est GFR ( Amer) ml/min Est GFR (Non-Af Amer) ml/min BUN/Creatinine Ratio (10-20) Glucose (70-99(Fasting)) mg/dl POC Glucose 158 H 73 76 (70-99) mg/dl Calcium (8.5-10.1) mg/dl Total Bilirubin (0.2-1.0) mg/dl AST (13-39) U/L ALT (7-52) U/L Alkaline Phosphatase (34-104) U/L Total Creatine Kinase (30-223) U/L Troponin I (0-0.04) ng/ml C-Reactive Protein (0-0.5) mg/dl Total Protein (6.0-8.3) gm/dl Albumin (3.4-5.0) gm/dl Globulin (2.5-4.0) gm/dl Albumin/Globulin Ratio (0.9-2) Vitamin B12 (180-914) pg/ml Lyme Disease IgG Ab (Negative) Lyme Disease IgM Ab (Negative) 07/06/21 07/06/21 07/06/21 Range/Units 05:36 05:36 05:36 WBC (4.8-10.8) K/uL RBC (4.7-6.1) M/uL Hgb (14.0-18.0) g/dL Hct (42-52) % MCV (80-100) fL MCH (25-34) pg MCHC (32-36) g/dL RDW Std Deviation (36.4-46.3) fL RDW Coeff of Lianne (11.5-14.5) % Plt Count (130-400) K/uL MPV (7.4-10.4) fL Immature Gran % (Auto) % Neut % (Auto) % Lymph % (Auto) % [place] % (Auto) % Eos % (Auto) % Baso % (Auto) % Neut # (Auto) (1.4-6.5) K/uL Lymph # (Auto) (1.2-3.4) K/uL [place] # (Auto) (0.11-0.59) K/uL Eos # (Auto) (0-0.5) K/uL Baso # (Auto) (0-0.2) K/uL Immature Gran # (Auto) (0.00-0.02) K/uL ESR (0-20) mm/hr PT (9.0-12.0) Seconds INR (0.9-1.1) Sodium 139 (136-145) mmol/L Potassium 3.5 (3.5-5.1) mmol/L Chloride 108 H (98-107) mmol/L Carbon Dioxide 26 (21-32) mmol/L Anion Gap 5 (3-11) BUN 38 H (6-23) mg/dl Creatinine 1.15 (0.6-1.4) mg/dl Est Cr Clr Drug Dosing 68.7 ml/min Est GFR ( Amer) 71.2 ml/min Est GFR (Non-Af Amer) 61.5 ml/min BUN/Creatinine Ratio 33.0 H (10-20) Glucose 79 (70-99(Fasting)) mg/dl POC Glucose (70-99) mg/dl Calcium 8.1 L (8.5-10.1) mg/dl Total Bilirubin 0.3 (0.2-1.0) mg/dl AST 15 (13-39) U/L ALT 10 (7-52) U/L Alkaline Phosphatase 62 (34-104) U/L Total Creatine Kinase 21 L (30-223) U/L Troponin I 27.83 H* (0-0.04) ng/ml C-Reactive Protein < 0.50 (0-0.5) mg/dl Total Protein 5.5 L (6.0-8.3) gm/dl Albumin 3.3 L (3.4-5.0) gm/dl Globulin 2.2 L (2.5-4.0) gm/dl Albumin/Globulin Ratio 1.5 (0.9-2) Vitamin B12 790 (180-914) pg/ml Lyme Disease IgG Ab Negative (Negative) Lyme Disease IgM Ab Negative (Negative) 07/06/21 07/06/21 07/06/21 Range/Units 05:36 05:36 05:36 WBC 6.16 (4.8-10.8) K/uL RBC 4.07 L (4.7-6.1) M/uL Hgb 10.9 L (14.0-18.0) g/dL Hct 34.4 L (42-52) % MCV 84.5 (80-100) fL MCH 26.8 (25-34) pg MCHC 31.7 L (32-36) g/dL RDW Std Deviation 60.5 H (36.4-46.3) fL RDW Coeff of Lianne 19.5 H (11.5-14.5) % Plt Count 147 (130-400) K/uL MPV 9.4 (7.4-10.4) fL Immature Gran % (Auto) 1.0 % Neut % (Auto) 75.6 % Lymph % (Auto) 15.6 % [place] % (Auto) 6.8 % Eos % (Auto) 0.8 % Baso % (Auto) 0.2 % Neut # (Auto) 4.66 (1.4-6.5) K/uL Lymph # (Auto) 0.96 L (1.2-3.4) K/uL [place] # (Auto) 0.42 (0.11-0.59) K/uL Eos # (Auto) 0.05 (0-0.5) K/uL Baso # (Auto) 0.01 (0-0.2) K/uL Immature Gran # (Auto) 0.06 H (0.00-0.02) K/uL ESR 12 (0-20) mm/hr PT 38.2 H (9.0-12.0) Seconds INR 3.9 H (0.9-1.1) Sodium (136-145) mmol/L Potassium (3.5-5.1) mmol/L Chloride (98-107) mmol/L Carbon Dioxide (21-32) mmol/L Anion Gap (3-11) BUN (6-23) mg/dl Creatinine (0.6-1.4) mg/dl Est Cr Clr Drug Dosing ml/min Est GFR ( Amer) ml/min Est GFR (Non-Af Amer) ml/min BUN/Creatinine Ratio (10-20) Glucose (70-99(Fasting)) mg/dl POC Glucose (70-99) mg/dl Calcium (8.5-10.1) mg/dl Total Bilirubin (0.2-1.0) mg/dl AST (13-39) U/L ALT (7-52) U/L Alkaline Phosphatase (34-104) U/L Total Creatine Kinase (30-223) U/L Troponin I (0-0.04) ng/ml C-Reactive Protein (0-0.5) mg/dl Total Protein (6.0-8.3) gm/dl Albumin (3.4-5.0) gm/dl Globulin (2.5-4.0) gm/dl Albumin/Globulin Ratio (0.9-2) Vitamin B12 (180-914) pg/ml Lyme Disease IgG Ab (Negative) Lyme Disease IgM Ab (Negative) 07/05/21 07/05/21 Range/Units 20:05 16:50 WBC (4.8-10.8) K/uL RBC (4.7-6.1) M/uL Hgb (14.0-18.0) g/dL Hct (42-52) % MCV (80-100) fL MCH (25-34) pg MCHC (32-36) g/dL RDW Std Deviation (36.4-46.3) fL RDW Coeff of Lianne (11.5-14.5) % Plt Count (130-400) K/uL MPV (7.4-10.4) fL Immature Gran % (Auto) % Neut % (Auto) % Lymph % (Auto) % [place] % (Auto) % Eos % (Auto) % Baso % (Auto) % Neut # (Auto) (1.4-6.5) K/uL Lymph # (Auto) (1.2-3.4) K/uL [place] # (Auto) (0.11-0.59) K/uL Eos # (Auto) (0-0.5) K/uL Baso # (Auto) (0-0.2) K/uL Immature Gran # (Auto) (0.00-0.02) K/uL ESR (0-20) mm/hr PT (9.0-12.0) Seconds INR (0.9-1.1) Sodium (136-145) mmol/L Potassium (3.5-5.1) mmol/L Chloride (98-107) mmol/L Carbon Dioxide (21-32) mmol/L Anion Gap (3-11) BUN (6-23) mg/dl Creatinine (0.6-1.4) mg/dl Est Cr Clr Drug Dosing ml/min Est GFR ( Amer) ml/min Est GFR (Non-Af Amer) ml/min BUN/Creatinine Ratio (10-20) Glucose (70-99(Fasting)) mg/dl POC Glucose 192 H 178 H (70-99) mg/dl Calcium (8.5-10.1) mg/dl Total Bilirubin (0.2-1.0) mg/dl AST (13-39) U/L ALT (7-52) U/L Alkaline Phosphatase (34-104) U/L Total Creatine Kinase (30-223) U/L Troponin I (0-0.04) ng/ml C-Reactive Protein (0-0.5) mg/dl Total Protein (6.0-8.3) gm/dl Albumin (3.4-5.0) gm/dl Globulin (2.5-4.0) gm/dl Albumin/Globulin Ratio (0.9-2) Vitamin B12 (180-914) pg/ml Lyme Disease IgG Ab (Negative) Lyme Disease IgM Ab (Negative) PG Care Time/CCT Total # of Minutes Spent Total Time Spent with Patient: Total time spent is greater than 50% in coordination of care (as documented) at patient's floor/unit and/or counseling patient: Coding Level of Care Code 66567 Subseq Hosp Care Lvl 3 Diagnoses Myocarditis I51.4 Elevated troponin R77.8 Polymyositis M33.20 Hypokalemia E87.6 CAD (coronary atherosclerotic disease) I25.10 Chronic anemia D64.9 Interstitial lung disease J84.9 Diabetes E11.42; Z79.4 Diabetes mellitus complication detail: with polyneuropathy Diabetes mellitus complication status: with neurologic complications Diabetes mellitus [facility] insulin use: with termite inspector use Diabetes mellitus type: type 2 HLD (hyperlipidemia) E78.2 Hyperlipidemia type: mixed hyperlipidemia Parkinsonism G20 Parkinsonism type: unspecified History of seizures Z87.898 History of aortic valve replacement Z95.2 PAF (paroxysmal atrial fibrillation) I48.0 Chronic kidney disease, stage 3a N18.3 Rheumatoid arthritis M06.9 Rheumatoid arthritis location: unspecified site Rheumatoid factor presence: unspecified presence Pancytopenia D61.818 History of prostate cancer Z85.46 (1) Rheumatoid arthritis Rheumatoid arthritis location: unspecified site Rheumatoid factor presence: unspecified presence Qualified Code(s): M06.9 - Rheumatoid arthritis, unspecified (2) Diabetes Diabetes mellitus complication detail: with polyneuropathy Diabetes mellitus complication status: with neurologic complications Diabetes mellitus termite inspector insulin use: with [facility] use Diabetes mellitus type: type 2 Qualified Code(s): E11.42 - Type 2 diabetes mellitus with diabetic polyneuropathy; Z79.4 - watermelon inspector (current) use of insulin (3) HLD (hyperlipidemia) Hyperlipidemia type: mixed hyperlipidemia Qualified Code(s): E78.2 - Mixed hyperlipidemia (4) Parkinsonism Parkinsonism type: unspecified Qualified Code(s): G20 - Parkinson's disease
[2021-07-06] MEDS ORDERED: ISOSORBIDE MONO EXTENDED REL 30 MG TABCR PO ONE (11:19)
[2021-07-06] MEDS: CALCIUM CARBONATE 1250MG TAB PO SCH (20:36)
[2021-07-06] MEDS: allopurinoL 100 MG TAB PO SCH (20:37)
[2021-07-06] MEDS: CHOLECALCIFEROL 1,000 UNITS 25 MCG TAB PO SCH (20:37)
[2021-07-06] MEDS: ATORVASTATIN 40 MG TAB PO SCH (20:37)
[2021-07-06] MEDS: levETIRAcetam 250 MG TAB PO SCH (20:38)
[2021-07-06 22:35] LABS: CMV IgG Antibody >10.00 U/mL; CMV IgM Antibody <30.00 AU/mL; Coxsackie A10 <1:8; Coxsackie A16 <1:8; Coxsackie A2 <1:8; Coxsackie A4 <1:8; Coxsackie A7 <1:8; Coxsackie A9 <1:8; Parvovirus IgG 3.1 (<0.9)
[2021-07-07] MEDS: ACETAMINOPHEN 325 MG TAB PO PRN ×2 (03:15→17:38)
[2021-07-07 08:10] LABS: Eosinophils # (auto) 0.04 K/uL (0-0.5); Eosinophils % (auto) 0.8 %; Hematocrit (blood only) 36.2 % (42-52); Hemoglobin 11.3 g/dL (14.0-18.0); Immature Granulocytes # (auto) 0.08 K/uL (0.00-0.02); Immature Granulocytes % (auto) 1.7 %; Lymphocytes # (auto) 0.87 K/uL (1.2-3.4); Lymphocytes % (auto) 18.5 %; Mean Corpuscular Hemoglobin 26.7 pg (25-34); Mean Corpuscular Hgb Conc 31.2 g/dL (32-36); Mean Corpuscular Volume 85.4 fL (80-100); Mean Platelet Volume 9.6 fL (7.4-10.4); Monocytes # (auto) 0.25 K/uL (0.11-0.59); Monocytes % (auto) 5.3 %; Neutrophils # (auto) 3.47 K/uL (1.4-6.5); Neutrophils % (auto) 73.7 %; Platelet Count 139 K/uL (130-400); RDW Coefficient of Variation 20.1 % (11.5-14.5); RDW Standard Deviation 62.7 fL (36.4-46.3); Red Blood Count 4.24 M/uL (4.7-6.1); White Blood Count 4.71 K/uL (4.8-10.8)
[2021-07-07] MEDS: INSULIN ASPART PER UNIT SQ SCH ×4 (08:14→20:53)
[2021-07-07] MEDS: INSULIN HUMAN NPH SC SCH (08:15)
[2021-07-07 08:18] LABS: INR 3.2 (0.9-1.1); Prothrombin Time 32.4 Seconds (9.0-12.0)
[2021-07-07] MEDS: UMECLIDINIUM/VILANTEROL 62.5/25MCG 7 PUFFS/INHALER INH SCH (08:20)
[2021-07-07] MEDS: FLUTICASONE FUROATE 100MCG 14 PUFFS/INHALER INH SCH (08:20)
[2021-07-07] MEDS: POLYETHYLENE (MIRALAX) 17 GM PACK PO SCH ×4 (08:20→20:32)
[2021-07-07] MEDS: ISOSORBIDE MONO EXTENDED REL 60 MG TABCR PO SCH (08:21)
[2021-07-07] MEDS: FEXOFENADINE HCL 180 MG TAB PO SCH (08:22)
[2021-07-07] MEDS: SENNA 8.6 MG TAB PO SCH (08:22)
[2021-07-07] MEDS: PANTOprazole 40 MG TAB PO PRN (08:22)
[2021-07-07] MEDS: CARBIDOPA/LEVODOPA 25/100MG TAB PO SCH ×3 (08:22→20:30)
[2021-07-07] MEDS: FINASTERIDE 5 MG TAB PO SCH (08:22)
[2021-07-07] MEDS: LEFLUNOMIDE 10 MG TAB PO SCH (08:22)
[2021-07-07] MEDS: TOPIRAMATE 100 MG TAB PO SCH ×2 (08:22→20:29)
[2021-07-07] MEDS: PENICILLIN V POTASSIUM 500 MG TAB PO SCH ×4 (08:22→20:25)
[2021-07-07] MEDS: GABAPENTIN 300 MG CAP PO SCH ×2 (08:22→20:31)
[2021-07-07] MEDS: COLCHICINE 0.6 MG TAB PO SCH ×2 (08:22→20:29)
[2021-07-07] MEDS: CYANOCOBALAMIN (B-12) 500 MCG TABLET PO SCH (08:23)
[2021-07-07] MEDS: levETIRAcetam 500 MG TAB PO SCH (08:23)
[2021-07-07] MEDS: predniSONE 50 MG TAB PO SCH (08:23)
[2021-07-07] MEDS: FUROSEMIDE 20 MG TAB PO SCH (08:23)
[2021-07-07] MEDS: oxyCODONE HCL IR 5 MG TAB (IMMEDIATE RELEASE) PO PRN (08:27)
[2021-07-07 08:30] LABS: Anisocytosis Present
[2021-07-07] MEDS: oxyCODONE HCL 10 MG TABCR (OxyCONTIN) PO SCH ×2 (08:30→20:39)
[2021-07-07 08:49] LABS: Albumin Globulin Ratio 1.5 (0.9-2); Albumin Level 3.5 gm/dl (3.4-5.0); Bilirubin,Total 0.3 mg/dl (0.2-1.0); Calcium 8.3 mg/dl (8.5-10.1); Creatinine Clr Calc Pharmacy 59.2 ml/min; Est GFR (African American) 60.3 ml/min; Globulin 2.4 gm/dl (2.5-4.0); Potassium 3.5 mmol/L (3.5-5.1); Total Protein 5.9 gm/dl (6.0-8.3)
[2021-07-07 09:01] LABS: Troponin I 28.18 ng/ml (0-0.04)
--- NOTE | 2021-07-07 13:50 | Pharmacy Report ---
Pharmacy Glycemic Short Note 2 - Date of Service July 07, 2021 - Glycemic Short BSG Results (Last 24 hours): 07/06/21 07/06/21 07/07/21 16:45 20:09 07:35 Glucose 110 H POC Glucose 193 H 277 H 07/07/21 07/07/21 07:50 11:26 Glucose POC Glucose 112 H 119 H OUTPATIENT ANTIDIABETIC REGIMEN: * Trulicity 1.5 mg SQ weekly * Lantus 20 units BID + Novolog with meals * NPH 1 unit per 1 mg of steroids * HbA1c: 6.9% (07/04/21) ASSESSMENT: 07/07 * Lantus discontinued yesterday due to significant reduction in fasting BSG (187 -> 76 mg/dL) from day prior * Fasting BSG of 112 mg/dL this morning * Will continue once daily NPH insulin (~0.4 unit/kg) with prednisone 50 mg PO daily * BSGs well-controlled so far today, do not anticipate any changes to regimen 07/05 * BSGs have been trending up throughout the day. * Novolog parameters adjusted today to provide additional prandial coverage. * Fasting BSG was above goal this morning. If this becomes a trend, will need to consider increasing Lantus. * Pt is awaiting transfer to [facility], pending bed availability. 07/03 * Patient's BSGs yesterday were [phone] mg/dL. Fasting today was 133 mg/dL. * Continue Lantus 20 units daily. * Increase NPH to 40 units and give this morning with prednisone 60 mg. * Continue Novolog as reasonable BSGs yesterday. Background * Patient's BSGs yesterday were [phone] mg/dL. Fasting today was 263 m g/dL. * Patient received 40 units of Lantus plus 30 units of bolus yesterday (total of 70 units). * Patient received 10 units of prednisone in morning and then 50 mg of prednisone at bedtime. Started 60 mg of prednisone this morning. * Pharmacy consulted after patient received morning insulin - 20 units of Lantus plus Novolog. * Lunch BSG was 306 mg/dL. * Initially NPH was not given because patient received substantial amount of basal insulin yesterday. Typically receives around 20 units of Lantus/day in house and received 40 units yesterday. Patient insisted he receive NPH and agreed upon receiving 30 units (gave less than home dose since this was being given at lunchtime) * Will d/c Lantus for now (received 20 units this morning) and re-evaluate tomorrow. * Continue Novolog as reasonable compared to last admission. PLAN FOR INPATIENT GLYCEMIC CONTROL: * Hold outpatient SQ diabetes medications * Basal insulin * Hold Lantus * NPH 40 units SQ daily (~0.4 unit/kg) - give with prednisone 50 mg PO daily * Bolus insulin * NovoLog per scale ACHS or Q6hrs while NPO * Goal Range: Low 110 mg/dL - High 140 mg/dL * Correction Factor: 20 mg/dL/unit * Nutritional / Prandial insulin per carb ratio of 1 unit per 4 grams CHO consumed
--- NOTE | 2021-07-07 13:54 | Pharmacy Report ---
Pharmacy Glycemic Short Note 2 - Date of Service July 07, 2021 - Glycemic Short BSG Results (Last 24 hours): 07/06/21 07/06/21 07/07/21 16:45 20:09 07:35 Glucose 110 H POC Glucose 193 H 277 H 07/07/21 07/07/21 07:50 11:26 Glucose POC Glucose 112 H 119 H OUTPATIENT ANTIDIABETIC REGIMEN: * Trulicity 1.5 mg SQ weekly * Lantus 20 units BID + Novolog with meals * NPH 1 unit per 1 mg of steroids * HbA1c: 6.9% (07/04/21) ASSESSMENT: 07/05/21: * BSGs have been trending up throughout the day. * Novolog parameters adjusted today to provide additional prandial coverage. * Fasting BSG was above goal this morning. If this becomes a trend, will need to consider increasing Lantus. * Pt is awaiting transfer to [facility], pending bed availability. 07/03 * Patient's BSGs yesterday were [phone] mg/dL. Fasting today was 133 mg/dL. * Continue Lantus 20 units daily. * Increase NPH to 40 units and give this morning with prednisone 60 mg. * Continue Novolog as reasonable BSGs yesterday. Background * Patient's BSGs yesterday were [phone] mg/dL. Fasting today was 263 mg/dL. * Patient received 40 units of Lantus plus 30 units of bolus yesterday (total of 70 units). * Patient received 10 units of prednisone in morning and then 50 mg of prednisone at bedtime. Started 60 mg of prednisone this morning. * Pharmacy consulted after patient received morning insulin - 20 units of Lantus plus Novolog. * Lunch BSG was 306 mg/dL. * Initially NPH was not given because patient received substantial amount of basal insulin yesterday. Typically receives around 20 units of Lantus/day in house and received 40 units yesterday. Patient insisted he receive NPH and agreed upon receiving 30 units (gave less than home dose since this was being given at lunchtime) * Will d/c Lantus for now (received 20 units this morning) and re-evaluate tomorrow. * Continue Novolog as reasonable compared to last admission. PLAN FOR INPATIENT GLYCEMIC CONTROL: * Hold outpatient SQ diabetes medications * Basal insulin * Lantus 20 units SQ daily * NPH 40 units SQ daily * Bolus insulin * NovoLog per scale ACHS or Q6hrs while NPO * Goal Range: Low 110 mg/dL - High 140 mg/dL * Correction Factor: 20 mg/dL/unit * Nutritional / Prandial insulin per carb ratio of 1 unit per 4 grams CHO consumed
--- NOTE | 2021-07-07 13:57 | Pharmacy Report ---
Pharmacy Glycemic Short Note 2 - Date of Service July 07, 2021 - Glycemic Short BSG Results (Last 24 hours): 07/06/21 07/06/21 07/07/21 16:45 20:09 07:35 Glucose 110 H POC Glucose 193 H 277 H 07/07/21 07/07/21 07:50 11:26 Glucose POC Glucose 112 H 119 H OUTPATIENT ANTIDIABETIC REGIMEN: * Trulicity 1.5 mg SQ weekly * Lantus 20 units BID + Novolog with meals * NPH 1 unit per 1 mg of steroids * HbA1c: 6.9% (07/04/21) ASSESSMENT: 07/05/21: * BSGs have been trending up throughout the day. * Novolog parameters adjusted today to provide additional prandial coverage. * Fasting BSG was above goal this morning. If this becomes a trend, will need to consider increasing Lantus. * Pt [place] [facility]. 07/03 * Patient's BSGs yesterday were [phone] mg/dL. Fasting today was 133 mg/dL. * Continue Lantus 20 units daily. * Increase NPH to 40 units and give this morning with prednisone 60 mg. * Continue Novolog as reasonable BSGs yesterday. Background * Patient's BSGs yesterday were [phone] mg/dL. Fasting today was 263 mg/dL. * Patient received 40 units of Lantus plus 30 units of bolus yesterday (total of 70 units). * Patient received 10 units of prednisone in morning and then 50 mg of prednisone at bedtime. Started 60 mg of prednisone this morning. * Pharmacy consulted after patient received morning insulin - 20 units of Lantus plus Novolog. * Lunch BSG was 306 mg/dL. * Initially NPH was not given because patient received substantial amount of basal insulin yesterday. Typically receives around 20 units of Lantus/day in house and received 40 units yesterday. Patient insisted he receive NPH and agreed upon receiving 30 units (gave less than home dose since this was being given at lunchtime) * Will d/c Lantus for now (received 20 units this morning) and re-evaluate tomorrow. * Continue Novolog as reasonable compared to last admission. PLAN FOR INPATIENT GLYCEMIC CONTROL: * Hold outpatient SQ diabetes medications * Basal insulin * Lantus 20 units SQ daily * NPH 40 units SQ daily * Bolus insulin * NovoLog per scale ACHS or Q6hrs while NPO * Goal Range: Low 110 mg/dL - High 140 mg/dL * Correction Factor: 20 mg/dL/unit * Nutritional / Prandial insulin per carb ratio of 1 unit per 4 grams CHO consumed
[2021-07-07] MEDS: ALBUTEROL HFA 8 GM INHALER INH SCH ×2 (15:50→19:50)
[2021-07-07] MEDS: PANTOprazole 40 MG TAB PO SCH ×2 (16:22→20:25)
[2021-07-07] MEDS: WARFARIN SOD 7.5 MG TAB PO SCH (16:22)
[2021-07-07] MEDS ORDERED: FUROSEMIDE 20 MG TAB PO ONE (17:00)
[2021-07-07] MEDS ORDERED: POTASSIUM CHLORIDE CRTAB 20 MEQ TABCR PO STA (17:00)
--- NOTE | 2021-07-07 19:28 | Hospitalist Progress Note ---
Date of Service July 07, 2021 Assessment & Plan (1) Myocarditis: Plan: Ongoing symptoms but chest pain improved from time of this admission. Initial dx was late April/early May 2021 during prior hospital admit. Presented with chest pain, markedly elevated troponins (>30). s/p heart cath during that admission - L main stent patent, minimal CAD otherwise. 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 He also has h/o myocarditis in 04/2019, hospitalized in the [facility]. Patient has continued with chest pain and ongoing/marked troponin elevation with values still >30. With that said the sharp, stabbing pain he had several days ago is now improved, and troponin is finally improved to 28. He remains on a prednisone pulse - was at 60mg, now weaned to 50mg on 07/06/21. He remains on colchicine 0.6mg BID and Leflunomide (latter started by rheum - Dr Buckley - as outpatient in May). Of note - CPK is normal. Repeat echo this admission with preserved EF. Again exact etiology of myocarditis is uncertain but favored to be autoimmune/rheumatic. Both his local automatic buffer and his local graduate advisor both recommended tertiary care center referral due to refractory symptoms. On 07/01/21 I called and spoke with the [facility] transfer center and patient was accepted in [place] [facility] [place] Ana Ng, hospitalist. Dr Buckley had made rheumatology in [place] aware of Mr Bradford's complex past medical history (Dr Richmond Geronimo). Unfortunately it was ascertained that [facility] [place] not take pt's insurance. Thus, Dr Sprague reached out to [facility] this week. She spoke with automatic buffer, rheum, etc. They declined the pt's referral. Social work has resubmitted everything to his insurance to obtain auth for transfer [place] [facility]. Pt will need testing that is not offered here - cardiac MRI, etc. Cont prednisone. Cont colchicine. Cont Leflunomide. Cont imdur (added this week for ? coronary spasm). Cont oxycontin 10mg BID for pain. (2) Elevated troponin: Plan: 2nd to #1 CPK wnl most recent trop ~28 repeat in am s/p heart cath 05/25/[address] Vincent - patent L main stent; other vessels without obstructive lesions thus, troponin elevation is not due to ischemia (although cannot fully exclude coronary vasospasm) no evidence of pericarditis would be unusual for coronary vasopasm to lead to ongoing troponin elevation for 6 weeks (3) CAD (coronary atherosclerotic disease): Plan: s/p L main stent 2018 - [facility] s/p heart cath 04/2021 - stent patent, no obstructive lesions cont statin not on asa or plavix at presentation, however Dr Chau's consult note in April suggests he should be on aspirin once daily was it d/c when his colchicine was added?? will need to clarify with Dr Chau - will contact him tomorrow (4) Interstitial lung disease: Plan: diagnosed several years ago - by physicians in [place], then at [facility] 2nd to rheumatoid arthritis? 05/2021 scanned office notes from pulmonary at [facility] (pt had telehealth visit) suggest he may not have ILD but chronic aspiration?? 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 apparently had had a polymyositis panel in the past showing MDA5 level was elevated (per Dr Buckley - his level was 34, normal being <20) multiple attempts to Rx his polymyositis +/- questionable RA with rituxan, other meds not successful (records suggest he had a severe adverse rxn to the rituxan, etc) Dr Buckley initiated Leflunomide 05/2021 - patient with fatigue, etc that he attributes to the medication [id number] he remains on the med patient will need additional rheum w/u once he is transferred to [place] of note - all CPK levels going back several years are normal including today's CPK continue prednisone 50mg daily with taper (6) History of aortic valve replacement: Plan: 2003 INR goal 2.5 to 3.5 INR today 3.2 cont coumadin; INR am (7) PAF (paroxysmal atrial fibrillation): Plan: cont coumadin he is not on rate-controlling agents (8) Chronic kidney disease, stage 3a: Plan: history of such, but now CrCL is >60 bmps have been stable (9) Parkinsonism: Plan: recent dx by neurology (vs actual PD) follows with neurology for seizure d/o as well cont sinemet (10) Rheumatoid arthritis: Plan: question of diagnosis dating back several years does not have joint manifestations of RA at this time apparently he has been RF negative in the past but weakly positive to anti-CCP previous thought was that his suspected ILD was due to RA following with Dr Buckley locally (11) Seizure: Plan: seizure d/o continue usual seizure medications (12) Pancytopenia: Plan: etiology? b12 level was <300 in April - added supplementation folate wnl TSH wnl 2nd to rheumatic disease? other? (13) History of prostate cancer: Plan: noted (14) Diabetes: Plan: a1c 7.7% in 03/2021 cont lantus BID cont novolog cont NPH (15) Candidiasis of mouth and esophagus: Plan: nystatin 5cc qid (16) Abdominal distension: Plan: consider checking KUB x-rays, r/o impaction, r/o ileus distension could be central adiposity from prednisone could be body wall edema could be combo of factors Plan: of note - pt is on PCN VK for recent dental work (had the dental work in [place]??) updated pt's son by phone this evening Admission and Anticipated Discharge Date Admission Date: July 01, 2021 Subjective pt states that at time of admission his chest pain was 7-8/10 on pain scale there is always a dull, constant ache but he had been having sharp, stabbing pain in the substernal region the sharp/stabbing pain is now resolved the pain is now a 4-5/10 on pain scale he continues with cough, wheeze, and mild AZUL - no worse than a few days ago eating is fair moving his bowels he asks about getting PT/OT - feels like he is getting weak finally, he feels that his abdomen is getting larger, like he is retaining fluid despite PO lasix qam he hasn't noticed any significant urine output with such Review of Systems Review of Systems: gen - no fevers/chills cv - no pleuritic pain; no orthopnea pulm - minimal sputum GI - no vomiting or diarrhea neuro - feels dizzy upon standing --- orthostatics checked by staff - these were negative Physical Exam Physical Exam: gen - NAD, awake, alert chest - no reproducible chest wall pain to palpation mouth - MMM, thrush plaques on buccal mucosa neck - no JVD heart - RRR, s1 s2, no murmur; mechanical valve closure sound lungs - mild, dry, basilar rales b/l - no change from my prior exam; b/l mild end-exo wheeze; no increased work of breathing abd - soft NT; ND but protuberant; BS+ ext - edema right leg about <1+; none on left; pulses 2+ b/l psych - a/o x 3 Results & Data Results & Data ([facility]) Vital Signs (Past 12 Hours) Vital Signs Temp Pulse Pulse Resp BP BP Pulse Ox 07/07/21 16:00 36.4 C L 20 97 07/07/21 15:41 64 16 96 07/07/21 15:39 63 07/07/21 12:00 36.7 C 58 L 18 114/62 97 07/07/21 07:58 36.4 C L 56 L 20 143/74 H 97 Laboratory Results Laboratory Results - last 24 hr 07/01/21 07/06/21 07/07/21 05:29 20:09 07:35 WBC 4.71 L RBC 4.24 L Hgb 11.3 L Hct 36.2 L MCV 85.4 MCH 26.7 MCHC 31.2 L RDW Std Deviation 62.7 H RDW Coeff of Lianne 20.1 H Plt Count 139 MPV 9.6 Immature Gran % (Auto) 1.7 Neut % (Auto) 73.7 Lymph % (Auto) 18.5 Price % (Auto) 5.3 Eos % (Auto) 0.8 Baso % (Auto) 0.0 Neut # (Auto) 3.47 Lymph # (Auto) 0.87 L Price # (Auto) 0.25 Eos # (Auto) 0.04 Baso # (Auto) 0.00 Immature Gran # (Auto) 0.08 H Anisocytosis Present PT INR Sodium Potassium Chloride Carbon Dioxide Anion Gap BUN Creatinine Est Cr Clr Drug Dosing Est GFR ( Amer) Est GFR (Non-Af Amer) BUN/Creatinine Ratio Glucose POC Glucose 277 H Calcium Total Bilirubin AST ALT Alkaline Phosphatase Troponin I Total Protein Albumin Globulin Albumin/Globulin Ratio [place] Type A(2) Ab <1:8 [place] Type A(4) Ab <1:8 [place] Type A(7) Ab <1:8 [place] Type A(9) Ab <1:8 [place] Type A(10) Ab <1:8 [place] Type A(16) Ab <1:8 CMV IgM Ab <30.00 CMV IgG Ab/TORCH >10.00 H Parvovirus IgG Ab Index 3.1 H Parvovirus IgM Ab Index 0.0 07/07/21 07/07/21 07/07/21 07:35 07:35 07:50 WBC RBC Hgb Hct MCV MCH MCHC RDW Std Deviation RDW Coeff of Lianne Plt Count MPV Immature Gran % (Auto) Neut % (Auto) Lymph % (Auto) Price % (Auto) Eos % (Auto) Baso % (Auto) Neut # (Auto) Lymph # (Auto) Price # (Auto) Eos # (Auto) Baso # (Auto) Immature Gran # (Auto) Anisocytosis PT 32.4 H INR 3.2 H Sodium 138 Potassium 3.5 Chloride 106 Carbon Dioxide 25 Anion Gap 7 BUN 37 H Creatinine 1.32 Est Cr Clr Drug Dosing 59.2 Est GFR ( Amer) 60.3 Est GFR (Non-Af Amer) 52.0 BUN/Creatinine Ratio 28.0 H Glucose 110 H POC Glucose 112 H Calcium 8.3 L Total Bilirubin 0.3 AST 15 ALT 11 Alkaline Phosphatase 58 Troponin I 28.18 H* Total Protein 5.9 L Albumin 3.5 Globulin 2.4 L Albumin/Globulin Ratio 1.5 [place] Type A(2) Ab [place] Type A(4) Ab [place] Type A(7) Ab [place] Type A(9) Ab [place] Type A(10) Ab [place] Type A(16) Ab CMV IgM Ab CMV IgG Ab/TORCH Parvovirus IgG Ab Index Parvovirus IgM Ab Index 07/07/21 07/07/21 11:26 16:51 WBC RBC Hgb Hct MCV MCH MCHC RDW Std Deviation RDW Coeff of Lianne Plt Count MPV Immature Gran % (Auto) Neut % (Auto) Lymph % (Auto) Price % (Auto) Eos % (Auto) Baso % (Auto) Neut # (Auto) Lymph # (Auto) Price # (Auto) Eos # (Auto) Baso # (Auto) Immature Gran # (Auto) Anisocytosis PT INR Sodium Potassium Chloride Carbon Dioxide Anion Gap BUN Creatinine Est Cr Clr Drug Dosing Est GFR ( Amer) Est GFR (Non-Af Amer) BUN/Creatinine Ratio Glucose POC Glucose 119 H 142 H Calcium Total Bilirubin AST ALT Alkaline Phosphatase Troponin I Total Protein Albumin Globulin Albumin/Globulin Ratio [place] Type A(2) Ab [place] Type A(4) Ab [place] Type A(7) Ab [place] Type A(9) Ab [place] Type A(10) Ab [place] Type A(16) Ab CMV IgM Ab CMV IgG Ab/TORCH Parvovirus IgG Ab Index Parvovirus IgM Ab Index PG Care Time/CCT Total # of Minutes Spent Total Time Spent with Patient: Total time spent is greater than 50% in coordination of care (as documented) at patient's floor/unit and/or counseling patient: Coding Level of Care Code 57765 Subseq Hosp Care Lvl 3 Diagnoses Myocarditis I51.4 Elevated troponin R77.8 CAD (coronary atherosclerotic disease) I25.10 Interstitial lung disease J84.9 Polymyositis M33.20 History of aortic valve replacement Z95.2 PAF (paroxysmal atrial fibrillation) I48.0 Chronic kidney disease, stage 3a N18.3 Parkinsonism G20 Parkinsonism type: unspecified Rheumatoid arthritis M06.9 Seizure R56.9 Pancytopenia D61.818 History of prostate cancer Z85.46 Diabetes E11.42; Z79.4 Diabetes mellitus complication detail: with polyneuropathy Diabetes mellitus complication status: with neurologic complications Diabetes mellitus continuous churn buttermaker insulin use: with continuous churn buttermaker use Diabetes mellitus type: type 2 Candidiasis of mouth and esophagus B37.81; B37.0 Abdominal distension R14.0 (1) Diabetes Diabetes mellitus complication detail: with polyneuropathy Diabetes mellitus complication status: with neurologic complications Diabetes mellitus continuous churn buttermaker insulin use: with continuous churn buttermaker use Diabetes mellitus type: type 2 Qualified Code(s): E11.42 - Type 2 diabetes mellitus with diabetic polyneuropathy; Z79.4 - watermaster (current) use of insulin (2) Parkinsonism Parkinsonism type: unspecified Qualified Code(s): G20 - Parkinson's disease
[2021-07-07] MEDS: guaiFENesin 600 MG TABCR PO SCH (20:25)
[2021-07-07] MEDS: CALCIUM CARBONATE 1250MG TAB PO SCH (20:26)
[2021-07-07] MEDS: allopurinoL 100 MG TAB PO SCH (20:27)
[2021-07-07] MEDS: NYSTATIN SUSP 500,000 U/5 ML UDC PO SCH (20:28)
[2021-07-07] MEDS: levETIRAcetam 250 MG TAB PO SCH (20:29)
[2021-07-07] MEDS: ATORVASTATIN 40 MG TAB PO SCH (20:29)
[2021-07-07] MEDS: CHOLECALCIFEROL 1,000 UNITS 25 MCG TAB PO SCH (20:30)
[2021-07-08] MEDS: POLYETHYLENE (MIRALAX) 17 GM PACK PO SCH ×3 (05:53→18:00)
[2021-07-08 07:27] LABS: Prothrombin Time 30.4 Seconds (9.0-12.0)
[2021-07-08] MEDS: ALBUTEROL HFA 8 GM INHALER INH SCH ×4 (07:27→19:52)
[2021-07-08 07:42] LABS: BUN Creatinine Ratio 26.8 (10-20); Creatinine Clr Calc Pharmacy 55.2 ml/min; Est GFR (African American) 55.2 ml/min; Est GFR (Non-African American) 47.6 ml/min; Potassium 3.9 mmol/L (3.5-5.1)
[2021-07-08 07:51] LABS: Troponin I 27.1 ng/ml (0-0.04)
[2021-07-08] MEDS: FEXOFENADINE HCL 180 MG TAB PO SCH (08:05)
[2021-07-08] MEDS: INSULIN ASPART PER UNIT SQ SCH ×4 (08:05→20:25)
[2021-07-08] MEDS: ISOSORBIDE MONO EXTENDED REL 60 MG TABCR PO SCH (08:06)
[2021-07-08] MEDS: GABAPENTIN 300 MG CAP PO SCH ×2 (08:06→20:24)
[2021-07-08] MEDS: levETIRAcetam 500 MG TAB PO SCH (08:07)
[2021-07-08] MEDS: CARBIDOPA/LEVODOPA 25/100MG TAB PO SCH ×3 (08:07→20:23)
[2021-07-08] MEDS: PANTOprazole 40 MG TAB PO SCH ×2 (08:07→20:26)
[2021-07-08] MEDS: FUROSEMIDE 20 MG TAB PO SCH (08:08)
[2021-07-08] MEDS: predniSONE 50 MG TAB PO SCH (08:08)
[2021-07-08] MEDS: COLCHICINE 0.6 MG TAB PO SCH ×2 (08:08→20:23)
[2021-07-08] MEDS: CYANOCOBALAMIN (B-12) 500 MCG TABLET PO SCH (08:09)
[2021-07-08] MEDS: TOPIRAMATE 100 MG TAB PO SCH ×2 (08:09→20:27)
[2021-07-08] MEDS: LEFLUNOMIDE 10 MG TAB PO SCH (08:09)
[2021-07-08] MEDS: FINASTERIDE 5 MG TAB PO SCH (08:09)
[2021-07-08] MEDS: INSULIN HUMAN NPH SC SCH (08:10)
[2021-07-08] MEDS: FLUTICASONE FUROATE 100MCG 14 PUFFS/INHALER INH SCH (08:10)
[2021-07-08] MEDS: SENNA 8.6 MG TAB PO SCH (08:10)
[2021-07-08] MEDS: guaiFENesin 600 MG TABCR PO SCH ×2 (08:12→20:24)
[2021-07-08] MEDS: NYSTATIN SUSP 500,000 U/5 ML UDC PO SCH ×4 (08:13→20:26)
[2021-07-08] MEDS: oxyCODONE HCL 10 MG TABCR (OxyCONTIN) PO SCH ×2 (08:22→20:28)
--- NOTE | 2021-07-08 09:11 | XRay Report ---
XR chest 2V PA/lateral CLINICAL HISTORY: cough/wheezing. COMPARISON STUDY: 07/05/2021 TECHNIQUE: 2 views of the chest FINDINGS: Frontal and lateral radiographs of the chest the heart size to again be enlarged status post previous valve replacement. Compared to previous examination, there is a small patchy alveolar opacity seen a t the right lung base which is most likely within the middle lobe. The presence of an early pneumonia cannot be excluded. Differential includes a pulmonary nodule. The remainder of the lungs are clear of alveolar opacities. There is no evidence for effusion bilate rally. There is no evidence for vascular congestion. There is no acute osseous pathology. IMPRESSION: 1. Interval development of an ill-defined alveolar opacity at the right lung base medially which coul d possibly representing early pneumonia. However, pulmonary nodule cannot be excluded and follow-up C T of the chest is recommended. ACT 112: Negative or not required by law. Electronically signed by: Trent Ken M.D. 07/08/2021 9:09 AM
--- NOTE | 2021-07-08 09:13 | XRay Report ---
XR KUB/Abdomen 1 view CLINICAL HISTORY: bloating/distension. COMPARISON STUDY: 05/26/2021 TECHNIQUE: Multiple supine views of the abdomen FINDINGS: There are air-filled loops of large and small bowel without evidence for disproportionate dilatation or obstruction. There is no evidence for organomegaly or gross intra-abdominal mass. No abnormal calc ifications are seen along the course of the urinary tracts bilaterally. No acute osseous pathology. T he patient is again status post laminectomies and internal fixation. IMPRESSION: 1. No acute intra-abdominal abnormality. ACT 112: Negative or not required by law. Electronically signed by: Trent Ken M.D. 07/08/2021 9:11 AM
[2021-07-08] MEDS: UMECLIDINIUM/VILANTEROL 62.5/25MCG 7 PUFFS/INHALER INH SCH (09:54)
[2021-07-08] MEDS: WARFARIN SOD 7.5 MG TAB PO SCH (16:00)
--- NOTE | 2021-07-08 16:01 | Hospitalist Progress Note ---
Date of Service July 08, 2021 Assessment & Plan (1) Myocarditis: Plan: Ongoing symptoms but chest pain improved from time of this admission. Initial dx was late April/early May 2021 during prior hospital admit. Presented with chest pain, markedly elevated troponins (>30). s/p heart cath during that admission - L main stent patent, minimal CAD otherwise. 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 He also has h/o myocarditis in 04/2019, hospitalized in the [facility]. Patient has continued with chest pain and ongoing/marked troponin elevation with values still >30. With that said the sharp, stabbing pain he had several days ago is now improved, and troponin is finally improved to 28. He remains on a prednisone pulse - was at 60mg, now weaned to 50mg on 07/06/21. He remains on colchicine 0.6mg BID and Leflunomide (latter started by rheum - Dr Buckley - as outpatient in May). Of note - CPK is normal. Repeat echo this admission with preserved EF. Again exact etiology of myocarditis is uncertain but favored to be autoimmune/rheumatic. Both his local cell attendant and his local fur pointer both recommended tertiary care center referral due to refractory symptoms. On 07/01/21 I called and spoke with the [facility] transfer center and patient was accepted in transfer to [facility] by Dr Ana Ng, hospitalist. Dr Buckley had made rheumatology in [place] aware of Mr Bradford's complex past medical history (Dr Richmond Geronimo). Unfortunately it was ascertained that [facility] does not take pt's insurance. Thus, Dr Sprague reached out to [facility] this week. She spoke with cell attendant, rheum, etc. They declined the pt's referral. Social work has resubmitted everything to his insurance to obtain auth for transfer to [facility]. Pt will need testing that is not offered here - cardiac MRI, etc. Cont prednisone. Cont colchicine. Cont Leflunomide. Cont imdur (added this week for ? coronary spasm). Cont oxycontin 10mg BID for pain. (2) Elevated troponin: Plan: 2nd to #1 CPK wnl most recent trop ~28 repeat in am s/p heart cath 05/25/[address] Vincent - patent L main stent; other vessels without obstructive lesions thus, troponin elevation is not due to ischemia (although cannot fully exclude coronary vasospasm) no evidence of pericarditis would be unusual for coronary vasopasm to lead to ongoing troponin elevation for 6 weeks (3) CAD (coronary atherosclerotic disease): Plan: s/p L main stent 2018 - [facility] s/p heart cath 04/2021 - stent patent, no obstructive lesions cont statin not on asa or plavix at presentation, however Dr Chau's consult note in April suggests he should be on aspirin once daily was it d/c when his colchicine was added?? will need to clarify with Dr Chau - will contact him tomorrow (4) Interstitial lung disease: Plan: diagnosed several years ago - by physicians in [place], then at [facility] 2nd to rheumatoid arthritis? 05/2021 scanned office notes from pulmonary at [facility] (pt had telehealth visit) suggest he may not have ILD but chronic aspiration?? 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 apparently had had a polymyositis panel in the past showing MDA5 level was elevated (per Dr Buckley - his level was 34, normal being <20) multiple attempts to Rx his polymyositis +/- questionable RA with rituxan, other meds not successful (records suggest he had a severe adverse rxn to the rituxan, etc) Dr Buckley initiated Leflunomide 05/2021 - patient with fatigue, etc that he attributes to the medication [id number] he remains on the med patient will need additional rheum w/u once he is transferred to [place] of note - all CPK levels going back several years are normal including today's CPK continue prednisone 50mg daily with taper (6) History of aortic valve replacement: Plan: 2003 INR goal 2.5 to 3.5 INR today 3.2 cont coumadin; INR am (7) PAF (paroxysmal atrial fibrillation): Plan: cont coumadin he is not on rate-controlling agents (8) Chronic kidney disease, stage 3a: Plan: history of such, but now CrCL is >60 bmps have been stable (9) Parkinsonism: Plan: recent dx by neurology (vs actual PD) follows with neurology for seizure d/o as well cont sinemet (10) Rheumatoid arthritis: Plan: question of diagnosis dating back several years does not have joint manifestations of RA at this time apparently he has been RF negative in the past but weakly positive to anti-CCP previous thought was that his suspected ILD was due to RA following with Dr Buckley locally (11) Seizure: Plan: seizure d/o continue usual seizure medications (12) Pancytopenia: Plan: etiology? b12 level was <300 in April - added supplementation folate wnl TSH wnl 2nd to rheumatic disease? other? (13) History of prostate cancer: Plan: noted (14) Diabetes: Plan: a1c 7.7% in 03/2021 cont lantus BID cont novolog cont NPH (15) Candidiasis of mouth and esophagus: Plan: nystatin 5cc qid (16) Abdominal distension: Plan: consider checking KUB x-rays, r/o impaction, r/o ileus distension could be central adiposity from prednisone could be body wall edema could be combo of factors Plan: of note - pt is on PCN VK for recent dental work (had the dental work in [place]??) updated pt's son by phone this evening Admission and Anticipated Discharge Date Admission Date: July 01, 2021 Physical Exam Physical Exam: gen - NAD, awake, alert chest - no reproducible chest wall pain to palpation mouth - MMM, thrush plaques on buccal mucosa neck - no JVD heart - RRR, s1 s2, no murmur; mechanical valve closure sound lungs - mild, dry, basilar rales b/l - no change from my prior exam; b/l mild end-exo wheeze; no increased work of breathing abd - soft NT; ND but protuberant; BS+ ext - edema right leg about <1+; none on left; pulses 2+ b/l psych - a/o x 3 Results & Data Results & Data ([facility]) Vital Signs (Past 12 Hours) Vital Signs Temp Pulse Pulse Resp BP BP Pulse Ox 07/08/21 15:28 75 16 98 07/08/21 15:16 36.4 C L 111 H 20 126/80 96 07/08/21 14:23 64 07/08/21 11:34 62 16 97 07/08/21 10:59 36.5 C 105 H 19 130/75 93 07/08/21 07:29 60 16 97 07/08/21 07:15 36.6 C 59 L 18 132/74 99 07/08/21 07:00 70 07/08/21 04:32 36.7 C 58 L 20 117/65 99 Laboratory Results Laboratory Results - last 24 hr 07/07/21 07/07/21 07/08/21 16:51 20:01 06:57 PT 30.4 H INR 3.0 H Sodium Potassium Chloride Carbon Dioxide Anion Gap BUN Creatinine Est Cr Clr Drug Dosing Est GFR ( Amer) Est GFR (Non-Af Amer) BUN/Creatinine Ratio Glucose POC Glucose 142 H 205 H Calcium Troponin I 07/08/21 07/08/21 07/08/21 06:57 07:25 11:38 PT INR Sodium 139 Potassium 3.9 Chloride 106 Carbon Dioxide 26 Anion Gap 7 BUN 38 H Creatinine 1.42 H Est Cr Clr Drug Dosing 55.2 Est GFR ( Amer) 55.2 Est GFR (Non-Af Amer) 47.6 BUN/Creatinine Ratio 26.8 H Glucose 105 H POC Glucose 116 H 236 H Calcium 9.0 Troponin I 27.10 H* PG Care Time/CCT Total # of Minutes Spent Total Time Spent with Patient: Total time spent is greater than 50% in coordination of care (as documented) at patient's floor/unit and/or counseling patient: Coding Diagnoses Myocarditis I51.4 Elevated troponin R77.8 CAD (coronary atherosclerotic disease) I25.10 Interstitial lung disease J84.9 Polymyositis M33.20 History of aortic valve replacement Z95.2 PAF (paroxysmal atrial fibrillation) I48.0 Chronic kidney disease, stage 3a N18.3 Parkinsonism G20 Parkinsonism type: unspecified Rheumatoid arthritis M06.9 Seizure R56.9 Pancytopenia D61.818 History of prostate cancer Z85.46 Diabetes E11.42; Z79.4 Diabetes mellitus type: type 2 Diabetes mellitus adjunct faculty for medical terminology insulin use: with correction use Diabetes mellitus complication status: with neurologic complications Diabetes mellitus complication detail: with polyneuropathy Candidiasis of mouth and esophagus B37.81; B37.0 Abdominal distension R14.0 (1) Parkinsonism Parkinsonism type: unspecified Qualified Code(s): G20 - Parkinson's disease (2) Diabetes Diabetes mellitus type: type 2 Diabetes mellitus adjunct faculty for medical terminology insulin use: with correction use Diabetes mellitus complication status: with neurologic complications Diabetes mellitus complication detail: with polyneuropathy Qualified Code(s): E11.42 - Type 2 diabetes mellitus with diabetic polyneuropathy; Z79.4 - manager terminal (current) use of insulin
[2021-07-08] MEDS: oxyCODONE HCL IR 5 MG TAB (IMMEDIATE RELEASE) PO PRN (16:47)
--- NOTE | 2021-07-08 18:38 | Discharge Summary ---
Date of Service date of admission - June 30, 2021 date of discharge - July 08, 2021 Admission HPI Per Admitting Provider 76 YOM with complicated medical history to include Aortic root graft, Mechanical AVR in 2003 (Coumadin), polymyositis, ?rheumatoid arthritis, seizure disorder, neuropathy, ILD, HLD, DMII on insulin, Parkinson disease, lumbar fusion (06/2020), and BPH who presents today with retrosternal chest pain. This started early today and is chronic, recurring problem for the patient. The patient also notes generalized weakness for a week. The patient has taken oxycodone with minimal relief. Current pain is rated as 5/10. He notes having daily chest pains and hx of myocarditis, most recently admitted and treated for this at the end of April. He is also anticoagulated on coumadin for an AVR. Recently took penicillin for dental work. Pt denies LOC, headache, fevers, chills, diaphoresis, visual changes, neck pain, breathing difficulties, nausea, vomiting, abdominal pain, back pain, melena, hematochezia, urinary symptoms, numbness, weakness, lymphadenopathy, rash, or other complaints. Patient received his Pfizer COVID-19 vaccine series, as well as his booster which he received in November 2020. Influenza vaccine also received in November 2020. Troponin elevated at 30.77, CRP and ESR elevated, no leukocytosis, afebrile. Glucose 122, BUN 34 (baseline), K 3.2 (40 KCl given in ED), PTT 46.8, INR 4.9 , PT 47.5, Hgb 12 (baseline) other labs wnl. CXR--> Faint bibasilar airspace opacities which may represent atelectasis, pneumonia, and/or aspiration. Same findings noted on CXR from 05/24 admission. Principal Diagnosis Myocarditis, etiology uncertain, with refractory chest pain Discharge Exam gen - NAD, awake, alert chest - no reproducible chest wall pain to palpation mouth - MMM, thrush plaques on buccal mucosa improved neck - no JVD heart - RRR, s1 s2, no murmur; mechanical valve closure sound lungs - mild, dry, basilar rales b/l; b/l mild end-exo wheeze; no increased work of breathing abd - soft, NT, mildly distended, BS+ ext - trace edema right leg; none on left; pulses 2+ b/l psych - a/o x 3 Discharge Data Allergies Allergy/AdvReac Type Severity Reaction Status Date / Time Iodinated Contrast Media Allergy Severe Anaphylaxis Verified 06/30/21 19:54 shellfish derived Allergy Severe Anaphylaxis Verified 06/30/21 19:54 tamsulosin [From Flomax] Allergy Intermediate Itching Verified 06/30/21 19:54 Tetanus Vaccines and Toxoid Allergy Unknown Unknown Verified 06/30/21 19:54 Consultations PT, OT Procedures Performed Limited echocardiogram: 07/02/21 (compared with study done on 05/25/21) * hyperdynamic systolic function, EF >70% * no regional wall motion abnormalities * moderate to severe LVH * in comparison with 05/25/21 study - LV function is now hyperdynamic Ordered Studies Chest X-Ray 06/30/21 17:16 XR chest 1V portable CLINICAL HISTORY: Atypical chest pain TECHNIQUE: Single frontal radiograph of the chest was obtained. Comparison: Comparison is made to chest one view 05/26/2021 FINDINGS: Stable median sternotomy wires are seen. Cardiomegaly is noted. Faint bibasilar airspace opacities are seen. No evidence of pleural effusion or pneumothorax. IMPRESSION: Faint bibasilar airspace opacities which may represent atelectasis, pneumonia, and/or aspiration. ACT 112: Negative or not required by law. Electronically signed by: Russell Sifuentes M.D. 06/30/2021 5:38 PM Chest X-Ray 07/05/21 07:37 XR chest 2V PA/lateral HISTORY: hemoptysis COMPARISON: Chest 06/30/2021. FINDINGS: No pneumothorax. No pleural effusions. There are suture material within the left lung base. The heart remains mildly enlarged. There are postster notomy changes and a cardiac valve prosthesis. No new focal lung consolidations to suggest pneumonia. No evidence for pulmonary edema. Mild right basilar interstitial thickening which appears chronic. This remains unchanged. IMPRESSION: Stable mild cardiomegaly. Otherwise, no acute process within the chest. ACT 112: Negative or not required by law. Electronically signed by: Jc Che M.D. 07/05/2021 9:15 AM Chest X-Ray 07/08/21 08:04 XR chest 2V PA/lateral CLINICAL HISTORY: cough/wheezing. COMPARISON STUDY: 07/05/2021 TECHNIQUE: 2 views of the chest FINDINGS: Frontal and lateral radiographs of the chest the heart size to again be enlarged status post previous valve replacement. Compared to previous examination, there is a small patchy alveolar opacity seen at the right lung base which is most likely within the middle lobe. The presence of an early pneumonia cannot be excluded. Differential includes a pulmonary nodule. The remainder of the lungs are clear of alveolar opacities. There is no evidence for effusion bilaterally. There is no evidence for vascular congestion. There is no acute osseous pathology. IMPRESSION: 1. Interval development of an ill-defined alveolar opacity at the right lung base medially which could possibly representing early pneumonia. However, pulmonary nodule cannot be excluded and follow-up CT of the chest is recommended. ACT 112: Negative or not required by law. Electronically signed by: Trent Ken M.D. 07/08/2021 9:09 AM KUB X-Ray 07/08/21 08:04 XR KUB/Abdomen 1 view CLINICAL HISTORY: bloating/distension. COMPARISON STUDY: 05/26/2021 TECHNIQUE: Multiple supine views of the abdomen FINDINGS: There are air-filled loops of large and small bowel without evidence for disproportionate dilatation or obstruction. There is no evidence for organomegaly or gross intra-abdominal mass. No abnormal calcifications are seen along the course of the urinary tracts bilaterally. No acute osseous pathology. The patient is again status post laminectomies and internal fixation. IMPRESSION: 1. No acute intra-abdominal abnormality. ACT 112: Negative or not required by law. Electronically signed by: Trent Ken M.D. 07/08/2021 9:11 AM Hospital Course (1) Myocarditis: Initial diagnosis was made during his admission at [facility] from 05/24/21 to 06/01/21. Presented with chest pain and markedly elevated troponin of 39 on 05/24/21. s/p heart cath during that admission - L main stent patent, minimal CAD otherwise. Myocarditis was felt to be due to either a viral process vs autoimmune/rheumatic etiology. Placed on slow prednisone taper starting at 40mg daily and weaning by 10mg each week (of note - he had been on chronic prednisone prior to April 2021, with daily dose of 5mg). He was also initiated on colchicine 0.6mg BID. His pain improved during that admission but never fully resolved. Troponin at discharge was 37. Of note - he also has h/o myocarditis in 04/2019, hospitalized in the [facility], with resolution by history. THIS admission - Presented again with ongoing, constant chest pain. He reported that his pain never fully resolved after his 05/21-06/21 admission. He reported he was at 10mg of prednisone/day at time of this admission. There is always a dull ache in the chest but also a sharp, stabbing, intermittent pain. Pain at peak is 8/10. Troponin on 06/30/21 was 39. ESR on 06/30/21 was 32, improving to 12 several days later. CRP on 06/30/21 was 1.4, improving to zero several days later. Phone discussions were held with his local automotive general sales manager, Dr Britton Shipley and his local banquet captain, Dr Moses Chau. His prednisone was increased back to 60mg/day due to refractory chest pain and ongoing, marked troponin elevations. Prednisone was then weaned to 50mg/day on 07/06/21. Colchicine 0.6mg BID and Leflunomide 10mg daily were continued. The Leflunomide was started by Dr Shipley as outpatient in mid-May to treat his underlying rheumatic conditions and with the hopes of successfully weaning his steroids. Of note - CPK is normal. Repeat echo this admission with preserved EF. To cover for the possibility of coronary vasospasm Imdur was initiated and titrated to 60mg/day. This did provide some chest pain relief. He continued on oxycontin and this was increased to 10mg BID. He also has needed oxycodone IR 5mg prn chest pain. Troponin prior to transfer to [facility] was 27. Exact etiology of myocarditis is uncertain but favored to be autoimmune/rheumatic. Viral etiology is possible but felt less likely. Multiple COVID tests have been negative. Coxsackie titers were negative. EBV titers were negative. Lyme testing was negative. Both his local banquet captain and his local automotive general sales manager both recommended tertiary care center referral due to refractory symptoms. To help determine the etiology of his myocarditis there has been discussion about obtaining a cardiac MRI at a tertiary care center. Other diagnostic & treatment modalities may also be needed for his refractory symptoms. [facility] was contacted and was accepted in transfer for ongoing care. Accepting physician Dr Moses Pierce. His transfer was delayed because of insurance difficulties as well as bed availability. (2) Elevated troponin: 2nd to #1 CPK wnl most recent trop ~27 (07/08/21), down from a peak of 39 this admission peak troponin during his prior admission in April 2021 was 42 s/p heart cath 05/25/[address] Vincent - patent L main stent; other vessels without obstructive lesions thus, troponin elevation is not due to ischemia (although cannot fully exclude coronary vasospasm, although persistent troponin elevation for weeks would be highly unusual with vasospasm) no evidence of pericarditis (3) CAD (coronary atherosclerotic disease): s/p Left main stent 2019 - [facility]. s/p heart cath 05/25/21 - [facility] - Findings: LM -normal caliber, long vessel, proximal/mid stent widely patent. LAD -large caliber, 20 to 30% mid segment disease, distal vessel tapers to apex. Medium D1, D2 without significant disease. Circumflex -medium caliber, angulated. Gives off 1 large LPL. No significant disease. RCA -dominant, large caliber vessel, luminal irregularities continue statin not on aspirin or plavix at presentation; aspirin is being held while on high- dose colchicine (with hopes of resuming aspirin once colchicine is weaned) he is not on beta amor therapy (4) Interstitial lung disease: diagnosed several years ago by physicians in [place], then at [facility] in [place]. 2nd to rheumatoid arthritis? 2nd to polymyositis? Was treated with Rituximab therapy for polymyositis/rheumatoid arthritis in the past but did not tolerate such (adverse reaction). In 2018 he underwent an open lung biopsy to establish his diagnosis. 05/2021 scanned office notes from pulmonary at [facility] (pt had telehealth visit) suggests there is now some debate about whether his lung disease is truly ILD or whether it is due to chronic aspiration?? He follows with Dr Wiliam Ortega locally at [facility] in [place]. CXR at [facility] on 07/08/21 showed ?nodule or infiltrate in the RML? Advise repeat chest CT upon transfer to [facility]. Last chest CT was 12/2020 at [facility]. (5) Polymyositis: initial dx made in [place] several years ago. has been steroid-dependent for several years with baseline prednisone dose of 5mg/day. apparently had had a polymyositis panel in the past showing MDA5 level elevation (per Dr Shipley - his level was 34, normal being <20). he has had positive anti-CCP ab and aldolase levels in the past. All CPK levels, past & present, have been normal. multiple attempts to treat his polymyositis +/- questionable RA with rituxan & other meds not successful (records suggest he had a severe adverse reaction to the rituxan, etc). Dr Shipley, [facility] in [place], initiated Leflunomide 05/2021 - patient with fatigue, etc that he attributes to the medication. [id number] he remains on the Leflunomide. patient will need additional rheumatological w/u once he is transferred to [place]. as noted above in #1 he remains on prednisone 50mg/day. (6) History of aortic valve replacement: 2003 mechanical INR goal 2.5 to 3.5 INR 3 on day of discharge cont coumadin 7.5mg daily (7) PAF (paroxysmal atrial fibrillation): cont coumadin he is not on rate-controlling agents he has been in NSR during the stay (8) Chronic kidney disease, stage 3a: history of such, but now CrCL is >60 bmps have been stable while hospitalized (9) Parkinsonism: vs early Parkinson's disease. started on Sinemet in June 2020. follows with [facility] neurology for this as well as his seizure d/o. cont sinemet TID. (10) Rheumatoid arthritis: question of diagnosis dating back several years does not have joint manifestations of RA at this time apparently he has been RF negative in the past but weakly positive to anti-CCP previous thought was that his suspected ILD was due to RA (or polymyositis) following with Dr Britton Shipley locally at [facility] (11) Seizure: seizure d/o continue usual seizure medications including keppra + topamax (12) Pancytopenia: etiology? b12 level was <300 in April 2021 - added supplementation 1000mcg daily folate wnl TSH wnl 2nd to rheumatic disease? other? (13) History of prostate cancer: PSA undetectable 09/2020 Remains on finasteride (14) Diabetes: Hba1c 7.7% in 03/2021 cont lantus BID cont novolog cont NPH (15) Candidiasis of mouth and esophagus: nystatin 5cc qid swish/spit (16) Abdominal distension: KUB x-rays 07/08 with copious, severe constipation. distension could also be central adiposity from prednisone use. could be body wall edema. could be combo of factors. treat opiate-induced constipation. continue lasix. (17) Constipation due to opioid therapy: continue miralax continue senna BID (18) Right foot drop: has AFO device (19) History of gastric bypass: lap band (20) Diabetic peripheral neuropathy: cont gabapentin (21) Gout: cont allopurinol prophylaxis (22) Thoracic ascending aortic aneurysm: history of s/p repair in light of chest pain, elevated troponins, h/o aortic aneurysm, lack of response to steroids, etc - consider chest CT at [facility] upon transfer has IV contrast allergy and thus would need pre-medication protocol prior to such rule out other causes of elevated troponin (aortitis? other?) while here his clinical picture has not been consistent with aortic dissection I would like to thank Dr Moses Pierce and the medical team at [facility] for accepting Mr Bradford in transfer for ongoing care. Total Time Total Time Spent Total Time Spent (In Minutes): 80 Discharge Plan Discharge Items Patient Disposition: Transfer Acute Care Hospital Reason For Visit: RETROSTERNAL CHEST PAIN Discharge Diagnosis: 1. presumed Myocarditis - etiology uncertain; discharge troponin 27 2. Polymyositis 3. ?Rheumatoid Arthritis 4. h/o interstial lung disease - 2nd to autoimmune disease 5. seizure disorder 6. CAD s/p left main stent in the past 7. chronic coumadin use for mechanical aortic valve; discharge INR 3 8. opiate-induced constipation 9. type 2 diabetes 10. parkinson's disease vs parkinsonism Activity: As commented below Activity Comment: gentle walking with PT/OT Non-emergency contact: Primary Care Provider and Director Industrial Nursing Call non-emergency contact if: you have any medication questions and your symptoms worsen Follow-up/Referrals: Moses Chau DO [Physician] - (follow-up post-discharge from [facility]) Britton Shipley MD [Physician] - (see Dr Shipley after discharge from [facility]) Josh Gaspar MD [Primary Care Provider] - Diet: Carb Consistent or DM2 and Heart Healthy Addtl Attending Provider Instructions: Transfer to [facility] Pending Studies at Discharge: No Stand-Alone Forms: My [facility] Skilled Items Patient informed of condition?: Yes DNR: No Discharge Level of Care: Other Communicable Disease: No Discharge Prognosis: Stable Lines: Peripheral IV Urinary Catheter: No Medications and DC Order Prescriptions: New Anoro Ellipta 62.5-25 mcg/actuation Blister With Device 1 ea inhalation QAM Qty: 14 RF: 0 cyanocobalamin (vitamin B-12) 500 mcg Tablet 1,000 mcg PO QAM Qty: 30 RF: 0 nystatin 100,000 unit/mL Suspension 5 ml PO QID 7 Days Qty: 140 RF: 0 isosorbide mononitrate 60 mg Tablet Extended Release 24 Hr 60 mg PO QAM Qty: 30 RF: 0 oxycodone 5 mg Tablet 5 mg PO Q4H PRN (Reason: pain) Qty: 30 RF: 0 oxycodone [OxyContin] 10 mg Tablet,Oral Only,Ext.Rel.12 Hr 10 mg PO BID Qty: 30 RF: 0 (DME) Oxygen Home Liters Per Minute See Rx Instructions .ROUTE .MEDSUPPLY Qty: 1 RF: 0 Continued nitroglycerin 0.4 mg tablet, sublingual 0.4 mg sublingual Q5M PRN (Reason: chest pain) Qty: 25 RF: 1 gabapentin 300 mg capsule 300 mg PO BID Qty: 180 RF: 1 cholecalciferol (vitamin D3) [Vitamin D3] 50 mcg (2,000 unit) Capsule 2,000 unit PO HS RF: 0 atorvastatin 40 mg tablet 40 mg PO HS RF: 0 warfarin [Jantoven] 10 mg tablet 7.5 mg PO HS RF: 0 fexofenadine [Karlee Allergy] 180 mg Tablet 180 mg PO QAM RF: 0 calcium carbonate [Calcium 600] 600 mg calcium (1,500 mg) Tablet 600 mg PO HS RF: 0 topiramate [Topamax] 100 mg tablet 100 mg PO BID RF: 0 Trelegy Ellipta 100-62.5-25 mcg blister with device 1 inh inhalation QAM RF: 0 finasteride 5 mg tablet 5 mg PO QAM RF: 0 allopurinol 100 mg tablet 100 mg QPM RF: 0 carbidopa-levodopa 25-100 mg tablet 1 tab PO TID RF: 0 diclofenac sodium [Voltaren Arthritis Pain] 1 % Gel 2 g EXT QID Qty: 100 RF: 0 colchicine [Colcrys] 0.6 mg Tablet 0.6 mg PO BID Qty: 45 RF: 0 levetiracetam 500 mg tablet 750 mg PO HS RF: 0 leflunomide 10 mg tablet 10 mg PO QAM RF: 0 levetiracetam [Keppra] 500 mg tablet 1,000 mg PO QAM RF: 0 Trulicity 1.5 mg/0.5 mL pen injector 1.5 mg SUBCUT WK RF: 0 pantoprazole 40 mg tablet,delayed release (DR/EC) 40 mg PO BID Qty: 0 RF: 0 Changed sennosides [Senokot] 8.6 mg tablet 17.2 mg PO BID Qty: 0 RF: 0 prednisone 10 mg tablet 50 mg PO DAILY Qty: 0 RF: 0 Novolin N NPH U-100 Insulin 100 unit/mL Suspension 40 unit subcut QAM Qty: 10 RF: 0 furosemide [Lasix] 20 mg tablet 20 mg PO DAILY Qty: 0 RF: 0 polyethylene glycol 3350 [Miralax] 17 gram/dose Powder 17 g PO BID Qty: 0 RF: 0 albuterol sulfate [Ventolin HFA] 90 mcg/actuation Hfa Aerosol Inhaler 2 puff INHALATION Q4H Qty: 0 RF: 0 insulin aspart U-100 [Novolog Flexpen U-100 Insulin] 100 unit/mL (3 mL) insulin pen See Rx Instructions .ROUTE .COMPLEX Qty: 0 RF: 0 Discontinued Lantus Solostar U-100 Insulin 100 unit/mL (3 mL) insulin pen 20 unit SUBCUT BID Qty: 0 RF: 0 penicillin V potassium 500 mg tablet 500 mg PO QID RF: 0 oxycodone 10 mg tablet 10 mg PO HS RF: 0 Discharge Orders: Discharge Order (Routine); Ordered 07/08/21 Ordered By: Toni Kelly Admission Data Admit Date/Time: 07/01/21 20:14 Attending Provider: Toni Kelly Admit Provider: Shayan Mims Primary Care Provider: Josh Gaspar Other Providers: Shayan Mims Coding Level of Care Code D/C DAY MANAGEMENT >30 MINS Diagnoses Myocarditis I51.4 Elevated troponin R77.8 CAD (coronary atherosclerotic disease) I25.10 Interstitial lung disease J84.9 Polymyositis M33.20 History of aortic valve replacement Z95.2 PAF (paroxysmal atrial fibrillation) I48.0 Chronic kidney disease, stage 3a N18.3 Parkinsonism G20 Parkinsonism type: unspecified Rheumatoid arthritis M06.9 Seizure R56.9 Pancytopenia D61.818 History of prostate cancer Z85.46 Diabetes E11.42; Z79.4 Diabetes mellitus complication detail: with polyneuropathy Diabetes mellitus complication status: with neurologic complications Diabetes mellitus long term care phlebotomist insulin use: with usp use Diabetes mellitus type: type 2 Candidiasis of mouth and esophagus B37.81; B37.0 Abdominal distension R14.0 Constipation due to opioid therapy K59.03; T40.2X5A Right foot drop M21.371 History of gastric bypass Z98.84 Diabetic peripheral neuropathy E11.42 Gout M10.9 Thoracic ascending aortic aneurysm I71.2
[2021-07-08] MEDS: CHOLECALCIFEROL 1,000 UNITS 25 MCG TAB PO SCH (20:21)
[2021-07-08] MEDS: allopurinoL 100 MG TAB PO SCH (20:22)
[2021-07-08] MEDS: ATORVASTATIN 40 MG TAB PO SCH (20:22)
[2021-07-08] MEDS: CALCIUM CARBONATE 1250MG TAB PO SCH (20:23)
[2021-07-08] MEDS: levETIRAcetam 250 MG TAB PO SCH (20:26)
[2021-07-08] MEDS ORDERED: SENNA 8.6 MG TAB PO SCH (21:00)
[2021-07-09] MEDS ORDERED: ONDANSETRON INJ 2 MG/ML 2 ML VIAL ONE (00:29)
== END 2021-07-08 20:40 | disposition short-term general hospital (02) | DRG 546 ==
LOC: ED 16:59 → 2N 16:59 → SUATTDRO 21:27 → 2N 21:56 → SUATTDRO 07-01 20:14

== ENCOUNTER 2021-07-20 20:17 | Inpatient (IN) ==
--- NOTE | 2021-07-20 20:59 | XRay Report ---
SINGLE VIEW CHEST CLINICAL HISTORY: Atypical chest pain FINDINGS: An AP, portable, semierect chest radiograph is compared to study dated 07/08/2021. Correlati on is made with chest CT dated 01/09/2021. The examination is degraded by portable technique and apica l lordotic positioning. The patient is status post midline sternotomy. The heart is enlarged noting a therosclerotic calcification of the thoracic aorta. The pulmonary vasculature is noncongested. Airspa ce consolidation is seen in the right lung base. Postoperative change and probable scarring is seen a t the left lung base. No large pleural effusion or pneumothorax is identified. The skeletal structure s are osteopenic. The bony thorax is grossly intact. IMPRESSION: 1. Cardiomegaly without radiographic evidence of congestive failure. 2. There is right basilar consolidation. Correlate clinically for evidence of pneumonia. Radiographic follow-up to resolution is recommended. ACT 112: Negative or not required by law. Electronically signed by: Tan Burleson M.D. 07/20/2021 8:58 PM
[2021-07-20 21:00] LABS: Basophils # (auto) 0.01 K/uL (0-0.2); Basophils % (auto) 0.3 %; Eosinophils # (auto) 0.05 K/uL (0-0.5); Eosinophils % (auto) 1.6 %; Hematocrit (blood only) 39.9 % (42-52); Hemoglobin 12.7 g/dL (14.0-18.0); Immature Granulocytes # (auto) 0.02 K/uL (0.00-0.02); Immature Granulocytes % (auto) 0.6 %; Lymphocytes # (auto) 0.41 K/uL (1.2-3.4); Lymphocytes % (auto) 12.7 %; Mean Corpuscular Hemoglobin 27.2 pg (25-34); Mean Corpuscular Hgb Conc 31.8 g/dL (32-36); Mean Corpuscular Volume 85.4 fL (80-100); Mean Platelet Volume 9.9 fL (7.4-10.4); Monocytes % (auto) 3.1 %; Neutrophils # (auto) 2.63 K/uL (1.4-6.5); Neutrophils % (auto) 81.7 %; Platelet Count 116 K/uL (130-400); RDW Coefficient of Variation 19.3 % (11.5-14.5); RDW Standard Deviation 60.2 fL (36.4-46.3); Red Blood Count 4.67 M/uL (4.7-6.1); White Blood Count 3.22 K/uL (4.8-10.8)
[2021-07-20] MEDS ORDERED: ALBUT/IPRATROP 3MG/0.5MG NEB 3 ML VIAL NEB STA (21:00)
[2021-07-20 21:14] LABS: INR 2.1 (0.9-1.1); Partial Thromboplastin Ratio 1.1; Partial Thromboplastin Time 31.4 Seconds (21.0-31.0); Prothrombin Time 21.9 Seconds (9.0-12.0)
[2021-07-20 21:18] LABS: BUN Creatinine Ratio 24.6 (10-20); Calcium 9.3 mg/dl (8.5-10.1); Creatinine Clr Calc Pharmacy 64.1 ml/min; Est GFR (African American) 66.3 ml/min; Est GFR (Non-African American) 57.2 ml/min; Potassium 3.6 mmol/L (3.5-5.1)
[2021-07-20 21:22] LABS: Troponin I 33.18 ng/ml (0-0.04)
[2021-07-20 21:24] LABS: Base Excess ABG -1.5 mEq/L (-9-1.8); HCO3 ABG 21 mmol/L (19-24); Oxygen Saturation ABG 95.9 % (90-95); PCO2 ABG 30 mmHg (35-46); PO2 ABG 74 mmHg (80-95); pH ABG 7.47 (7.35-7.45)
[2021-07-20 21:25] LABS: Allen Test Pos (Pos)
[2021-07-20] MEDS ORDERED: PIPERACILLIN/TAZOBACTAM 4.5 GM/120 ML BAG IV ONE (21:48)
[2021-07-20 22:52] LABS: Adenovirus PCR Not Detected (NotDetected); Bordetella parapertussis PCR Not Detected (NotDetected); Bordetella pertussis PCR Not Detected (NotDetected); Chlamydia pneumoniae PCR Not Detected (NotDetected); Coronavirus 229E PCR Not Detected (NotDetected); Coronavirus CoV-2 (COVID19)PCR Not Detected (NotDetected); Coronavirus HKU1 PCR Not Detected (NotDetected); Coronavirus NL63 PCR Not Detected (NotDetected); Coronavirus OC43PCR Not Detected (NotDetected); Human Metapneumovirus PCR Not Detected (NotDetected); Influenza A PCR Not Detected (NotDetected); Influenza B PCR Not Detected (NotDetected); Mycoplasma pneumoniae PCR Not Detected (NotDetected); Parainfluenza Virus 1 PCR Not Detected (NotDetected); Parainfluenza Virus 2 PCR Not Detected (NotDetected); Parainfluenza Virus 3 PCR Not Detected (NotDetected); Parainfluenza Virus 4 PCR Not Detected (NotDetected); Respiratory Syncytial VirusPCR Not Detected (NotDetected); Rhinovirus/Enterovirus PCR Not Detected (NotDetected)
[2021-07-20] MEDS ORDERED: ALBUT/IPRATROP 3MG/0.5MG NEB 3 ML VIAL NEB PRN (22:52)
--- NOTE | 2021-07-20 22:53 | History & Physical Report ---
Date of Service July 20, 2021 Assessment & Plan (1) Shortness of breath: Plan: Patient with chronic SOB, uses supplemental O2 as needed at home. Diffuse wheezing noted on exam today. Patient with ILD. Presently adequate oxygenation on 2L by NC -Supplemental O2 as needed -DuoNeb q 4 hours -Albuterol PRN -Continue Trelegy (2) Chest pain: Plan: Patient has longstanding history of intermittent chest discomfort as well as persistently elevated troponin ongoing for the last several months. Concern for myocarditis - viral vs autoimmune/rheum etiology. He has been treated wt Prednisone as well as colchicine with minimal improvement in chest discomfort. Echo during last hospitalization with preserved EF He was recently referred to [facility], seen by Cardiology there. Patient had a cardiac MRI performed which was NEGATIVE for infiltrative cardiac findings or myocarditis. It did reveal lace-like infiltrate within the lungs. Per assessment, cardiology felt that his chest discomfort is most likely due to his underlying lung pathology and did not strongly feel that patient has myocarditis. -Telemetry monitoring -Repeat troponin x 1 (3) Gout: Plan: Chronic -Continue Allopurinol (4) Seizure: Plan: No active seizure -Continue Keppra -Continue Topamax (5) Chronic pulmonary aspiration: Plan: Aspiration precautions Easy to chew diet -Zosyn (6) Parkinsonism: Plan: Chronic -Continue Carbidopa-Levodopa at home dosage (7) Interstitial lung disease due to connective tissue disease: Plan: Patient was initially diagnosed years ago in [place], [place] then again at [facility] in [place]. Possibly secondary to underlying rheumatological conditions. ?RA/Polymyositis/Dermatomyositis. He was on Rutuximab in the past but was not tolerated. Note from 05/20[facility] from [facility] - Question whether his ILD is truly ILD or if i t is from chronic aspiration. Patient follows with Pulmonary. Currently being worked up by Rheumatolgy and Pulmonary -Continue Prednisone (8) Rheumatoid arthritis: Plan: Patient is followed by Rheumatology. Was seen by Rheum recently at [facility] as well. Consultation states that the diagnosis of RA is questionable. Patient does have a strong family history of RA, however, has not had documented synovitis, RF negative and CCP mildly elevated. Has had POSITIVE MDA5. Possibly associated with Amyopathic Dermatomyositis whi ch can be associated with aggressive ILD. Pulmonary consulted -Continue Prednisone 10mg po daily (9) Chronic kidney disease, stage 3a: Plan: Near baseline -Avoid nephrotoxic agents (10) PAF (paroxysmal atrial fibrillation): Plan: Rate controlled. On anticoagulation for mechanical aortic valve [facility] INR of 2.1 -Continue Coumadin (11) CAD (coronary artery disease): Plan: Patient with history of stent placement to Left main performed in [place] in 2018 Heart cath 05/25/21 at [facility] with widely patent stent, nonobstructive disease to LAD Patient continues to have persistent chest discomfort - unchanged over the last several months. Dull ache with episodes of sharp pain. -Continue Atorvastatin -No ASA/Plavix at present -Telemetry monitoring -Trend troponin (12) HLD (hyperlipidemia): Plan: Chronic -Continue Atorvastatin (13) Diabetes: Plan: Blood sugar well controlled -Lantus 7u BID -ISS -Goal blood sugar 100 - 140 (14) Polymyositis: Plan: Diagnosis initially made in [place] several years ago. Patient is steroid dependent. Patient follows with Rheumatology -Continue Prednisone (15) Diarrhea: Plan: Patient reports 4 days of diarrhea, watery, nonbloody. -Check C.diff -Check norvirus -IVF and electrolyte repletion (16) Aortic valve replaced: Plan: Mechanical aortic valve in place. Patient on Coumadin. Goal INR of 2.5 - 3.5, today is 2.1 -Given Coumadin dose now, continue daily -Monitor INR History of Present Illness Chief Complaint: Shortness of breath Primary Care Provider: Josh Gaspar MD Xavi Bradford is a 76yo male well known to the medical service. Patient has a complex medical history to include CAD, Parkinson's, Diabetes, Myocarditis, polymyositis and ILD. Patient has a mechanical aortic valve and is therapeutically anticoagulated on Coumadin. Has history of aortic root graft as well. Presents today with acute SOB. He was at home this evening around 18:30 when he developed acute shortness of breath. He took albuterol inhaler x 3 with no improvement. He checked his oxygen saturation with his pulse oximeter and found to be low at 70%. He called his son who lives next door. Placed on O2 at home with portable concentrator with improvement to 80%. EMS was called. Patient reports nasal congestion, hoarseness, generalized weakness and 5-6 episodes of watery diarrhea daily for the last 4 days. He has poor appetite and has not eaten much for the last 2 days. He has a chronic, non-productive cough which is unchanged. Allergies Allergy/AdvReac Type Severity Reaction Status Date / Time Iodinated Contrast Media Allergy Severe Anaphylaxis Verified 07/20/21 22:44 shellfish derived Allergy Severe Anaphylaxis Verified 07/20/21 22:44 tamsulosin [From Flomax] Allergy Intermediate Itching Verified 07/20/21 22:44 Tetanus Vaccines and Toxoid Allergy Unknown Unknown Verified 07/20/21 22:44 Home Medications Medication Instructions Recorded Confirmed Type atorvastatin 40 mg tablet 40 mg PO HS 05/28/20 07/20/21 History gabapentin 300 mg capsule 300 mg PO BID #180 cap 12/28/20 07/20/21 Rx fexofenadine 180 mg tablet 180 mg PO QAM 02/11/21 07/20/21 History (Karlee Allergy) fluticasone fur. 100 mcg-umeclid 1 inh INHALATION QAM 02/11/21 07/20/21 History 62.5 mcg-vilant 25 mcg inhalat.powder (Trelegy Ellipta) warfarin 10 mg tablet (Jantoven) 7.5 mg PO HS 02/11/21 07/20/21 History allopurinol 100 mg tablet 100 mg QPM 04/10/21 07/20/21 History finasteride 5 mg tablet 5 mg PO QAM 04/28/21 07/20/21 History nitroglycerin 0.4 mg sublingual 0.4 mg SUBLINGUAL Q5M PRN #25 tab 05/05/21 07/20/21 Rx tablet carbidopa 25 mg-levodopa 100 mg 1 tab PO TID 05/24/21 07/20/21 History tablet diclofenac sodium 1 % topical gel 2 g EXT QID #100 g 06/01/21 07/20/21 Rx (Voltaren Arthritis Pain) levetiracetam 500 mg tablet 750 mg PO HS 06/30/21 07/20/21 History levetiracetam 500 mg tablet 1,000 mg PO QAM 06/30/21 07/20/21 History (Keppra) Oxygen Home #1 ea 07/08/21 07/20/21 Rx albuterol sulfate 90 mcg/actuation 2 puff INHALATION Q4H #0 g 07/08/21 07/20/21 Rx aerosol inhaler (Ventolin HFA) insulin NPH isoph U-100 human 100 40 unit SUBCUT QAM #10 ml 07/08/21 07/20/21 Rx unit/mL subcutaneous suspension (Novolin N NPH U-100 Insulin isophane) insulin aspart U-100 100 unit/mL See Rx Instructions .ROUTE 07/08/21 07/20/21 Rx (3 mL) subcutaneous pen (Novolog .COMPLEX #0 ml Flexpen U-100 Insulin aspart) oxycodone 5 mg tablet 5 mg PO Q4H PRN #30 tab 07/08/21 07/20/21 Rx polyethylene glycol 3350 17 17 g PO BID #0 g 07/08/21 07/20/21 Rx gram/dose oral powder (Miralax) sennosides 8.6 mg tablet (Senokot) 17.2 mg PO BID #0 tab 07/08/21 07/20/21 Rx topiramate 100 mg tablet (Topamax) 100 mg PO BID 30 Days #60 tab 07/12/21 07/20/21 Rx cholecalciferol (vitamin D3) 50 4,000 unit PO HS cap 07/14/21 07/20/21 History mcg (2,000 unit) capsule (Vitamin D3) furosemide 20 mg tablet (Lasix) 20 mg PO DAILY tab 07/14/21 07/20/21 History prednisone 10 mg tablet 10 mg PO DAILY tab 07/14/21 07/20/21 History Past Med/Surg History Medical History Abnormal CT scan, chest Acute hyperglycemia Acute left-sided muscle weakness Anemia CAD (coronary artery disease) Chronic dyspnea Chronic pulmonary aspiration Dehydration Diabetes Dyspnea on exertion Fall Fluid overload HLD (hyperlipidemia) Hypoxia Interstitial lung disease due to connective tissue disease Lung nodule Nocturnal hypoxia Palliative care encounter Polymyositis Prostate cancer s/p XRT Rheumatoid arthritis Stroke-like symptom 12/2019, w/ blurry vision and dysarthria. mild R sided wkness. attending outpatient physical therapy w/ good improvement in strength (5+/5 strength of all 4 extremities as of 05/28/20) Subtherapeutic international normalized ratio (INR) Thoracic ascending aortic aneurysm s/p repair Weakness Surgical History H/O hernia repair History of aortic valve replacement mechanical History of cholecystectomy History of fusion of cervical spine History of gastric bypass lap band History of heart artery stent History of lung biopsy 2019 History of partial nephrectomy Family History Mother , age 87 of pulmonary issues Rheumatoid arthritis Father , in his mid 80s of a stroke Stroke Other Coronary heart disease Social History Smoking Status: Never smoker Second Hand Exposure: No; Hx Alcohol Use: No Hx Substance Use: No Preferred Language: [place] Helen[place] Communication Ability: Effective Hearing Ability: Hard of Hearing Legal Billing Analyst Required: No Beliefs That Will Affect Care: None marital status: / Current Living Situation: Alone Current Living Situation Comment: lives alone in a one story house current occupational status: retired 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 How many Children do You have: 1 Feels Safe at Home: Yes Safety Concerns: Feels Safe At This Time Assistive Devices: Glasses, Hearing Aid - Bilateral and Walker Review of Systems Review of Systems: All systems reviewed & are unremarkable except as noted in HPI & below Physical Exam Physical Exam: General: patient resting comfortably, NAD, non-toxic in ap pearance, AA&O x 4 Skin: warm, dry, bruising on forearms HEENT: NC/AT, PERRL, EOMI, anicteric sclera, conjunctiva without injection, external ear normal to inspection and nontender, nares patent, moist mucus membranes, dentition intact, no oropharyngeal lesions, neck supple, trachea midline, no LAD, no thyromegaly, no JVD Heart: +S1/S2, regular, no m/r/g, +Systolic click, mild reproducible chest wall discomfort Lungs: equal air entry bilaterally, diffuse end-expiratory wheezing Abd: +BS, soft, NT/ND, no masses/organomegaly/ascites Ext: warm, 2+ pulses in UE/LE bilaterally, no clubbing/cyanosis, 2+ edema of bilateral LE to knees Neuro: nonfocal, patient AA&O x 4, speech intact, no facial droop, moving all extremities on command with equal strength 5/5 Results & Data Results & Data ([facility]) Vital Signs (Past 12 Hours) Vital Signs Temp Pulse Resp BP Pulse Ox 07/20/21 22:26 81 18 132/82 94 07/20/21 21:32 78 14 97 07/20/21 20:41 90 07/20/21 20:33 36.7 C 86 18 146/66 H 90 Laboratory Results Laboratory Results WBC 3.22 K/uL (4.8-10.8) L 07/20/21 20:50 RBC 4.67 M/uL (4.7-6.1) L 07/20/21 20:50 Hgb 12.7 g/dL (14.0-18.0) L 07/20/21 20:50 Hct 39.9 % (42-52) L 07/20/21 20:50 MCV 85.4 fL (80-100) 07/20/21 20:50 MCH 27.2 pg (25-34) 07/20/21 20:50 MCHC 31.8 g/dL (32-36) L 07/20/21 20:50 RDW Std Deviation 60.2 fL (36.4-46.3) H 07/20/21 20:50 RDW Coeff of Lianne 19.3 % (11.5-14.5) H 07/20/21 20:50 Plt Count 116 K/uL (130-400) L 07/20/21 20:50 MPV 9.9 fL (7.4-10.4) 07/20/21 20:50 Immature Gran % (Auto) 0.6 % 07/20/21 20:50 Neut % (Auto) 81.7 % 07/20/21 20:50 Lymph % (Auto) 12.7 % 07/20/21 20:50 Mckinley % (Auto) 3.1 % 07/20/21 20:50 Eos % (Auto) 1.6 % 07/20/21 20:50 Baso % (Auto) 0.3 % 07/20/21 20:50 Neut # (Auto) 2.63 K/uL (1.4-6.5) 07/20/21 20:50 Lymph # (Auto) 0.41 K/uL (1.2-3.4) L 07/20/21 20:50 Mckinley # (Auto) 0.10 K/uL (0.11-0.59) L 07/20/21 20:50 Eos # (Auto) 0.05 K/uL (0-0.5) 07/20/21 20:50 Baso # (Auto) 0.01 K/uL (0-0.2) 07/20/21 20:50 Immature Gran # (Auto) 0.02 K/uL (0.00-0.02) 07/20/21 20:50 ESR 35 mm/hr (0-20) H 07/20/21 20:50 PT 21.9 Seconds (9.0-12.0) H 07/20/21 20:50 INR 2.1 (0.9-1.1) H 07/20/21 20:50 APTT 31.4 Seconds (21.0-31.0) H 07/20/21 20:50 PTT Ratio 1.1 07/20/21 20:50 ABG pH 7.47 (7.35-7.45) H 07/20/21 21:04 ABG pCO2 30 mmHg (35-46) L 07/20/21 21:04 ABG pO2 74 mmHg (80-95) L 07/20/21 21:04 ABG HCO3 21 mmol/L (19-24) 07/20/21 21:04 ABG O2 Saturation 95.9 % (90-95) H 07/20/21 21:04 ABG Base Excess -1.5 mEq/L (-9-1.8) 07/20/21 21:04 Radhames Test Pos (Pos) 07/20/21 21:04 Barometric Pressure 728.7 mm/Hg 07/20/21 21:04 Oxygen Given O2 FLOW RATE 0 07/20/21 21:04 Sodium 137 mmol/L (136-145) 07/20/21 20:50 Potassium 3.6 mmol/L (3.5-5.1) 07/20/21 20:50 Chloride 106 mmol/L (98-107) 07/20/21 20:50 Carbon Dioxide 24 mmol/L (21-32) 07/20/21 20:50 Anion Gap 7 (3-11) 07/20/21 20:50 BUN 30 mg/dl (6-23) H 07/20/21 20:50 Creatinine 1.22 mg/dl (0.6-1.4) 07/20/21 20:50 Est Cr Clr Drug Dosing 64.1 ml/min 07/20/21 20:50 Est GFR ( Amer) 66.3 ml/min 07/20/21 20:50 Est GFR (Non-Af Amer) 57.2 ml/min 07/20/21 20:50 BUN/Creatinine Ratio 24.6 (10-20) H 07/20/21 20:50 Glucose 251 mg/dl (70-99(Fasting)) H 07/20/21 20:50 Lactate 1.8 mmol/L (0.4-2.0) 07/20/21 21:04 Calcium 9.3 mg/dl (8.5-10.1) 07/20/21 20:50 Phosphorus 3.4 mg/dl (2.5-4.9) 07/20/21 20:50 Magnesium 1.9 mg/dl (1.7-2.4) 07/20/21 20:50 Troponin I 33.18 ng/ml (0-0.04) H* 07/20/21 20:50 C-Reactive Protein 2.09 mg/dl (0-0.5) H 07/20/21 20:50 Lipase 23 U/L (11-82) 07/20/21 20:50 Adenovirus (PCR) Not Detected (NotDetected) 07/20/21 21:05 B. pertussis DNA (PCR) Not Detected (NotDetected) 07/20/21 21:05 B.parapertussis DNA PCR Not Detected (NotDetected) 07/20/21 21:05 C. pneumoniae DNA (PCR) Not Detected (NotDetected) 07/20/21 21:05 Coronavirus OC43 (PCR) Not Detected (NotDetected) 07/20/21 21:05 Coronavirus HKU1 (PCR) Not Detected (NotDetected) 07/20/21 21:05 Coronavirus 229E (PCR) Not Detected (NotDetected) 07/20/21 21:05 SARS-CoV-2 (PCR) Not Detected (NotDetected) 07/20/21 21:05 Coronavirus NL63 (PCR) Not Detected (NotDetected) 07/20/21 21:05 Human Metapneumovir PCR Not Detected (NotDetected) 07/20/21 21:05 Influenza Type A (PCR) Not Detected (NotDetected) 07/20/21 21:05 Influenza Type B (PCR) Not Detected (NotDetected) 07/20/21 21:05 M. pneumoniae (PCR) Not Detected (NotDetected) 07/20/21 21:05 Parainfluenza 1 (PCR) Not Detected (NotDetected) 07/20/21 21:05 Parainfluenza 2 (PCR) Not Detected (NotDetected) 07/20/21 21:05 Parainfluenza 3 (PCR) Not Detected (NotDetected) 07/20/21 21:05 Parainfluenza 4 (PCR) Not Detected (NotDetected) 07/20/21 21:05 RSV (PCR) Not Detected (NotDetected) 07/20/21 21:05 Entero/Rhino (PCR) Not Detected (NotDetected) 07/20/21 21:05 Impressions Chest X-Ray 07/20/21 20:44 SINGLE VIEW CHEST CLINICAL HISTORY: Atypical chest pain FINDINGS: An AP, portable, semierect chest radiograph is compared to study dated 07/08/2021. Correlation is made with chest CT dated 01/09/2021. The examination is degraded by portable technique and apical lordotic positioning. The patient is status post midline sternotomy. The heart is enlarged noting atherosclerotic calcification of the thoracic aorta. The pulmonary vasculature is noncongested. Airspace consolidation is seen in the right lung base. Postoperative change and probable scarring is seen at the left lung base. No large pleural effusion or pneumothorax is identified. The skeletal structures are osteopenic. The bony thorax is grossly intact. IMPRESSION: 1. Cardiomegaly without radiographic evidence of congestive failure. 2. There is right basilar consolidation. Correlate clinically for evidence of pneumonia. Radiographic follow-up to resolution is recommended. ACT 112: Negative or not required by law. Electronically signed by: Tan Burleson M.D. 07/20/2021 8:58 PM Code Status & VTE Plan VTE Prophylaxis Plan VTE Prophylaxis will be ordered: Yes PG Care Time/CCT Total # of Minutes Spent Total Time Spent with Patient: Total time spent is greater than 50% in coordination of care (as documented) at patient's floor/unit and/or counseling patient: Coding Level of Care Code 50178 Initial Inpt Care Lvl 3 Diagnoses Gout M10.9 Seizure R56.9 Chronic pulmonary aspiration T17.908A Parkinsonism G20 Parkinsonism type: unspecified 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; M35.9 Rheumatoid arthritis M06.9 Rheumatoid arthritis location: unspecified site Rheumatoid factor presence: unspecified presence Shortness of breath R06.02 Chronic kidney disease, stage 3a N18.3 PAF (paroxysmal atrial fibrillation) I48.0 CAD (coronary artery disease) I25.10 Coronary Disease-Associated Artery/Lesion type: [place] artery [place] vs. transplanted heart: [place] heart Associated angina: without angina HLD (hyperlipidemia) E78.2 Hyperlipidemia type: mixed hyperlipidemia Diabetes E11.42; Z79.4 Diabetes mellitus type: type 2 Diabetes mellitus watermaster insulin use: with watermaster use Diabetes mellitus complication status: with neurologic complications Diabetes mellitus complication detail: with polyneuropathy Polymyositis M33.20 Diarrhea R19.7 Diarrhea type: unspecified type Chest pain R07.2 Chest pain type: precordial pain Aortic valve replaced Z95.2 (1) Parkinsonism Parkinsonism type: unspecified Qualified Code(s): G20 - Parkinson's disease (2) Rheumatoid arthritis Rheumatoid arthritis location: unspecified site Rheumatoid factor presence: unspecified presence Qualified Code(s): M06.9 - Rheumatoid arthritis, unspecified (3) CAD (coronary artery disease) Coronary Disease-Associated Artery/Lesion type: [place] artery [place] vs. transplanted heart: [place] heart Associated angina: without angina Qualified Code(s): I25.10 - Atherosclerotic heart disease of [place] coronary artery without angina pectoris (4) HLD (hyperlipidemia) Hyperlipidemia type: mixed hyperlipidemia Qualified Code(s): E78.2 - Mixed hyperlipidemia (5) Diabetes Diabetes mellitus type: type 2 Diabetes mellitus [facility] insulin use: with watermaster use Diabetes mellitus complication status: with neurologic complications Diabetes mellitus complication detail: with polyneuropathy Qualified Code(s): E11.42 - Type 2 diabetes mellitus with diabetic polyneuropathy; Z79.4 - watermaster (current) use of insulin (6) Diarrhea Diarrhea type: unspecified type Qualified Code(s): R19.7 - Diarrhea, unspecified (7) Chest pain Chest pain type: precordial pain Qualified Code(s): R07.2 - Precordial pain
--- NOTE | 2021-07-20 23:00 | Emergency Department Note ---
History of Present Illness General Chief Complaint: Shortness of Breath/Dyspnea Time Seen by Provider: 07/20/21 20:44 History of Present Illness Provider Complaint: shortness of breath Onset (ago): day(s) (1) Severity: moderate Consistency/Duration: + constant Exacerbated By: + nothing Known history of: aspiration pneumonia Associated symptoms: no chest pain, no pain with inspiration, no fever, no wheezing, no sputum production, no lower extremity pain, no polyuria, no paresthesias, no palpitations, no hemoptysis, no diaphoresis, no nausea/vomiting or no abdominal pain Home Medications Medication Instructions Recorded Confirmed Type atorvastatin 40 mg tablet 40 mg PO HS 05/28/20 07/20/21 History gabapentin 300 mg capsule 300 mg PO BID #180 cap 12/28/20 07/20/21 Rx fexofenadine 180 mg tablet 180 mg PO QAM 02/11/21 07/20/21 History (Karlee Allergy) fluticasone fur. 100 mcg-umeclid 1 inh INHALATION QAM 02/11/21 07/20/21 History 62.5 mcg-vilant 25 mcg inhalat.powder (Trelegy Ellipta) warfarin 10 mg tablet (Jantoven) 7.5 mg PO HS 02/11/21 07/20/21 History allopurinol 100 mg tablet 100 mg QPM 04/10/21 07/20/21 History finasteride 5 mg tablet 5 mg PO QAM 04/28/21 07/20/21 History nitroglycerin 0.4 mg sublingual 0.4 mg SUBLINGUAL Q5M PRN #25 tab 05/05/21 07/20/21 Rx tablet carbidopa 25 mg-levodopa 100 mg 1 tab PO TID 05/24/21 07/20/21 History tablet diclofenac sodium 1 % topical gel 2 g EXT QID #100 g 06/01/21 07/20/21 Rx (Voltaren Arthritis Pain) levetiracetam 500 mg tablet 750 mg PO HS 06/30/21 07/20/21 History levetiracetam 500 mg tablet 1,000 mg PO QAM 06/30/21 07/20/21 History (Keppra) Oxygen Home #1 ea 07/08/21 07/20/21 Rx albuterol sulfate 90 mcg/actuation 2 puff INHALATION Q4H #0 g 07/08/21 07/20/21 Rx aerosol inhaler (Ventolin HFA) insulin NPH isoph U-100 human 100 40 unit SUBCUT QAM #10 ml 07/08/21 07/20/21 Rx unit/mL subcutaneous suspension (Novolin N NPH U-100 Insulin isophane) insulin aspart U-100 100 unit/mL See Rx Instructions .ROUTE 07/08/21 07/20/21 Rx (3 mL) subcutaneous pen (Novolog .COMPLEX #0 ml Flexpen U-100 Insulin aspart) oxycodone 5 mg tablet 5 mg PO Q4H PRN #30 tab 07/08/21 07/20/21 Rx polyethylene glycol 3350 17 17 g PO BID #0 g 07/08/21 07/20/21 Rx gram/dose oral powder (Miralax) sennosides 8.6 mg tablet (Senokot) 17.2 mg PO BID #0 tab 07/08/21 07/20/21 Rx topiramate 100 mg tablet (Topamax) 100 mg PO BID 30 Days #60 tab 07/12/21 07/20/21 Rx cholecalciferol (vitamin D3) 50 4,000 unit PO HS cap 07/14/21 07/20/21 History mcg (2,000 unit) capsule (Vitamin D3) furosemide 20 mg tablet (Lasix) 20 mg PO DAILY tab 07/14/21 07/20/21 History prednisone 10 mg tablet 10 mg PO DAILY tab 07/14/21 07/20/21 History Allergies Allergy/AdvReac Type Severity Reaction Status Date / Time Iodinated Contrast Media Allergy Severe Anaphylaxis Verified 07/20/21 22:44 shellfish derived Allergy Severe Anaphylaxis Verified 07/20/21 22:44 tamsulosin [From Flomax] Allergy Intermediate Itching Verified 07/20/21 22:44 Tetanus Vaccines and Toxoid Allergy Unknown Unknown Verified 07/20/21 22:44 Past Med/Surg History Medical History Abnormal CT scan, chest Acute hyperglycemia Acute left-sided muscle weakness Anemia CAD (coronary artery disease) Chronic dyspnea Chronic pulmonary aspiration Dehydration Diabetes Dyspnea on exertion Fall Fluid overload HLD (hyperlipidemia) Hypoxia Interstitial lung disease due to connective tissue disease Lung nodule Nocturnal hypoxia Palliative care encounter Polymyositis Prostate cancer s/p XRT Rheumatoid arthritis Stroke-like symptom 12/2019, w/ blurry vision and dysarthria. mild R sided wkness. [facility]/ good improvement in strength (5+/5 strength of all 4 extremities as of 05/28/20) Subtherapeutic international normalized ratio (INR) Thoracic ascending aortic aneurysm s/p repair Weakness Surgical History H/O hernia repair History of aortic valve replacement mechanical History of cholecystectomy History of fusion of cervical spine History of gastric bypass lap band History of heart artery stent History of lung biopsy 2019 History of partial nephrectomy Family History Mother , age 87 of pulmonary issues Rheumatoid arthritis Father , in his mid 80s of a stroke Stroke Other Coronary heart disease Social History Smoking Status: Never smoker Second Hand Exposure: No; Hx Alcohol Use: No Hx Substance Use: No Preferred Language: Cymro Communication Ability: Effective Hearing Ability: Hard of Hearing Motor Builder Assembler Required: No Beliefs That Will Affect Care: None marital status: / Current Living Situation: Alone Current Living Situation Comment: lives alone in a one storry house. 2 steps to get in. son lives next door. 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 How many Children do You have: 1 Feels Safe at Home: Yes Assistive Devices: Glasses, Hearing Aid - Bilateral and Walker Review of Systems A total of 10 systems reviewed and were otherwise negative Physical Exam Vital Signs: Vital Signs - 24 hr 07/20/21 20:33 07/20/21 20:41 07/20/21 21:32 Temperature 36.7 C Temperature Source Oral Pulse Rate 86 78 Pulse Rate from Sp O2 Sensor 78 Pulse Rhythm Regular Pulse Strength Normal Respiratory Rate 18 14 Respiratory Effort / Characteristics Non-Labored Sponta neous Non-Labored Respiratory Depth Normal Normal Respiratory Patter n Regular Regular Blood Pressure 146/66 H Blood Pressure Lea n 92 Blood Pressure Pos ition Lying Pulse Oximetry 90 90 97 Oxygen Delivery Me thod Room Air Nasal Cannula Nasal Cannula Oxygen Flow Rate 0 2 Sepsis Recent Feve r Within 48 Hours No Sepsis New/Unexpla ined Change in Men luz marina Status N/A Sepsis Action Take n by Nursing No Action Required Oxygen Flow Rate - Titration 2 Pulse Oximetry Pos t Tiitration 93 07/20/21 22:26 Temperature Temperature Source Pulse Rate 81 Pulse Rate from Sp O2 Sensor 94 H Pulse Rhythm Pulse Strength Respiratory Rate 18 Respiratory Effort / Characteristics Respiratory Depth Respiratory Patter n Blood Pressure 132/82 Blood Pressure Lea n 98 Blood Pressure Pos ition Pulse Oximetry 94 Oxygen Delivery Me thod Nasal Cannula Oxygen Flow Rate 2 Sepsis Recent Feve r Within 48 Hours Sepsis New/Unexpla ined Change in Men luz marina Status Sepsis Action Take n by Nursing Oxygen Flow Rate - Titration Pulse Oximetry Pos t Tiitration Physical Exam: Physical Exam HENT: Exam performed. - Head: Normocephalic and atraumatic. - Right Ear: External ear normal. No mastoid tenderness. - Left Ear: External ear normal. No mastoid tenderness. - Mouth/Throat: The oropharynx is clear and moist. No trismus in the jaw. No dental abscesses or uvula swelling. No oropharyngeal exudate or tonsillar abscesses. EYES: Conjunctivae and EOM are normal. Pupils are equal, round, and reactive to light. Right eye exhibits no discharge. Left eye exhibits no discharge. No scleral icterus. NECK: Normal range of motion. Neck supple. No JVD present. No spinous process tenderness present. No carotid bruit present. No rigidity. No tracheal deviation and normal range of motion present. No Brudzinski's sign and no Kernig's sign noted. CV: Normal rate, regular rhythm, normal heart sounds and intact distal pulses. There is no peripheral edema. Palpable radial pulses bue. PULM/CHEST: Rhonchi bilaterally. ABD: The abdomen is soft. NEURO: He is alert and oriented to person, place, and time. He has normal strength. No cranial nerve deficit or sensory deficit. Coordination and gait normal. GCS eye subscore is 4. GCS verbal subscore is 5. GCS motor subscore is 6. Cerebellar tests wnl. PSYCH: He has a normal mood and affect. Behavior is normal. Judgment and thought content normal. Course Course 2043: The patient was evaluated in room B3. A complete history and physical exam was performed Cardiac monitoring: An order was placed for continuous cardiac monitoring. The monitor shows a rate of 90 with sinus rhythm Administered Medications Discontinued Medications Albuterol (Albut/Ipratrop 3mg/0.5mg Neb 3 Ml Vial) 3 ml NEB NOW STA; Protocol Stop: 07/20/21 21:01 Last Admin: 07/20/21 21:15 Dose: 3 ml Documented by: [id number] Piperacillin Sod/Tazobactam Sod (Zosyn) 4.5 gm in 120 mls @ 240 mls/hr IV NOW ONE Stop: 07/20/21 22:17 Last Admin: 07/20/21 22:39 Dose: 240 mls/hr Documented by: [id number] Medical Decision Making Laboratory Data Result diagrams: 07/20/21 20:50 07/20/21 20:50 Lab Results 07/20/21 07/20/21 07/20/21 Range/Units 20:50 20:50 20:50 WBC 3.22 L (4.8-10.8) K/uL RBC 4.67 L (4.7-6.1) M/uL Hgb 12.7 L (14.0-18.0) g/dL Hct 39.9 L (42-52) % MCV 85.4 (80-100) fL MCH 27.2 (25-34) pg MCHC 31.8 L (32-36) g/dL RDW Std Deviation 60.2 H (36.4-46.3) fL RDW Coeff of Lianne 19.3 H (11.5-14.5) % Plt Count 116 L (130-400) K/uL MPV 9.9 (7.4-10.4) fL Immature Gran % (Auto) 0.6 % Neut % (Auto) 81.7 % Lymph % (Auto) 12.7 % [place] % (Auto) 3.1 % Eos % (Auto) 1.6 % Baso % (Auto) 0.3 % Neut # (Auto) 2.63 (1.4-6.5) K/uL Lymph # (Auto) 0.41 L (1.2-3.4) K/uL [place] # (Auto) 0.10 L (0.11-0.59) K/uL Eos # (Auto) 0.05 (0-0.5) K/uL Baso # (Auto) 0.01 (0-0.2) K/uL Immature Gran # (Auto) 0.02 (0.00-0.02) K/uL PT 21.9 H (9.0-12.0) Seconds INR 2.1 H (0.9-1.1) APTT 31.4 H (21.0-31.0) Seconds PTT Ratio 1.1 ABG pH (7.35-7.45) ABG pCO2 (35-46) mmHg ABG pO2 (80-95) mmHg ABG HCO3 (19-24) mmol/L ABG O2 Saturation (90-95) % ABG Base Excess (-9-1.8) mEq/L Radhames Test (Pos) Barometric Pressure mm/Hg Oxygen Given Sodium 137 (136-145) mmol/L Potassium 3.6 (3.5-5.1) mmol/L Chloride 106 (98-107) mmol/L Carbon Dioxide 24 (21-32) mmol/L Anion Gap 7 (3-11) BUN 30 H (6-23) mg/dl Creatinine 1.22 (0.6-1.4) mg/dl Est Cr Clr Drug Dosing 64.1 ml/min Est GFR ( Amer) 66.3 ml/min Est GFR (Non-Af Amer) 57.2 ml/min BUN/Creatinine Ratio 24.6 H (10-20) Glucose 251 H (70-99(Fasting)) mg/dl Lactate (0.4-2.0) mmol/L Calcium 9.3 (8.5-10.1) mg/dl Troponin I 33.18 H* (0-0.04) ng/ml Lipase 23 (11-82) U/L 07/20/21 07/20/21 Range/Units 21:04 21:04 WBC (4.8-10.8) K/uL RBC (4.7-6.1) M/uL Hgb (14.0-18.0) g/dL Hct (42-52) % MCV (80-100) fL MCH (25-34) pg MCHC (32-36) g/dL RDW Std Deviation (36.4-46.3) fL RDW Coeff of Lianne (11.5-14.5) % Plt Count (130-400) K/uL MPV (7.4-10.4) fL Immature Gran % (Auto) % Neut % (Auto) % Lymph % (Auto) % [place] % (Auto) % Eos % (Auto) % Baso % (Auto) % Neut # (Auto) (1.4-6.5) K/uL Lymph # (Auto) (1.2-3.4) K/uL [place] # (Auto) (0.11-0.59) K/uL Eos # (Auto) (0-0.5) K/uL Baso # (Auto) (0-0.2) K/uL Immature Gran # (Auto) (0.00-0.02) K/uL PT (9.0-12.0) Seconds INR (0.9-1.1) APTT (21.0-31.0) Seconds PTT Ratio ABG pH 7.47 H (7.35-7.45) ABG pCO2 30 L (35-46) mmHg ABG pO2 74 L (80-95) mmHg ABG HCO3 21 (19-24) mmol/L ABG O2 Saturation 95.9 H (90-95) % ABG Base Excess -1.5 (-9-1.8) mEq/L Radhames Test Pos (Pos) Barometric Pressure 728.7 mm/Hg Oxygen Given O2 FLOW RATE 0 Sodium (136-145) mmol/L Potassium (3.5-5.1) mmol/L Chloride (98-107) mmol/L Carbon Dioxide (21-32) mmol/L Anion Gap (3-11) BUN (6-23) mg/dl Creatinine (0.6-1.4) mg/dl Est Cr Clr Drug Dosing ml/min Est GFR ( Amer) ml/min Est GFR (Non-Af Amer) ml/min BUN/Creatinine Ratio (10-20) Glucose (70-99(Fasting)) mg/dl Lactate 1.8 (0.4-2.0) mmol/L Calcium (8.5-10.1) mg/dl Troponin I (0-0.04) ng/ml Lipase (11-82) U/L Imaging Data Radiologist's Impression: Chest X-Ray 07/20/21 20:44 SINGLE VIEW CHEST CLINICAL HISTORY: Atypical chest pain FINDINGS: An AP, portable, semierect chest radiograph is compared to study dated 07/08/2021. Correlation is made with chest CT dated 01/09/2021. The examination is degraded by portable technique and apical lordotic positioning. The patient is status post midline sternotomy. The heart is enlarged noting atherosclerotic calcification of the thoracic aorta. The pulmonary vasculature is noncongested. Airspace consolidation is seen in the right lung base. Postoperative change and probable scarring is seen at the left lung base. No large pleural effusion or pneumothorax is identified. The skeletal structures are osteopenic. The bony thorax is grossly intact. IMPRESSION: 1. Cardiomegaly without radiographic evidence of congestive failure. 2. There is right basilar consolidation. Correlate clinically for evidence of pneumonia. Radiographic follow-up to resolution is recommended. ACT 112: Negative or not required by law. Electronically signed by: Tan Burleson M.D. 07/20/2021 8:58 PM [facility] Narrative EMR reviewed. Patient was seen in the outpatient pulmonology clinic today. I thought that the patient has chronic pulmonary aspiration and chronic dyspnea. He has nonspecific PFTs which are related to chronic aspiration. No definitive interstitial lung disease. Patient is on chronic prednisone by rheumatology. Has had elevated troponins and numerous left heart catheterizations thought to be myocarditis. Patient was admitted from June 30 to July 08, 2021 at this facility. 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 He had a catheterization which showed minimal coronary artery disease and a patent left main stent. Patient was placed on a prednisone taper starting at 40 mg daily weaning by 10 mg each week. Also placed on colchicine 0.6 mg twice daily. Echo showed a preserved ejection fraction. The exact etiology of myocarditis was uncertain but favored to be autoimmune/rheumatic. Multiple Covid test were negative. Coxsackie titers were negative. EBV titers were negative. Lyme titer is negative. Patient was transferred to [facility]. Per the paperwork obtained in the [place] system by the dependency case manager Rain at [facility] the patient had a cardiac MRI which showed no inflammation of the patient was discharged. Vital signs stable today on home oxygen. X-ray shows aspiration pneumonia. Patient treated with antibiotics. Patient's troponin is again elevated at 3 3.18. Patient has chronically elevated troponin level last troponin in the system was on July 08 which was 27.1. Patient's INR is therapeutic. [facility] Dr. Dong notified. Impression & Plan Aspiration pneumonia, Elevated troponin Discharge Plan Visit Data Chief Complaint: Shortness of Breath/Dyspnea Discharge Problem: Aspiration pneumonia, Elevated troponin Patient Disposition: Admitted As Inpatient Forms Stand Alone Forms: [facility] Prescriptions Prescriptions: No Action nitroglycerin 0.4 mg tablet, sublingual 0.4 mg sublingual Q5M PRN (Reason: chest pain) Qty: 25 RF: 1 topiramate [Topamax] 100 mg tablet 100 mg PO BID 30 Days Qty: 60 RF: 5 furosemide [Lasix] 20 mg tablet 20 mg PO DAILY RF: 0 prednisone 10 mg tablet 10 mg PO DAILY RF: 0 gabapentin 300 mg capsule 300 mg PO BID Qty: 180 RF: 1 cholecalciferol (vitamin D3) [Vitamin D3] 50 mcg (2,000 unit) capsule 4,000 unit PO HS RF: 0 atorvastatin 40 mg tablet 40 mg PO HS RF: 0 warfarin [Jantoven] 10 mg tablet 7.5 mg PO HS RF: 0 fexofenadine [Karlee Allergy] 180 mg Tablet 180 mg PO QAM RF: 0 Trelegy Ellipta 100-62.5-25 mcg blister with device 1 inh inhalation QAM RF: 0 finasteride 5 mg tablet 5 mg PO QAM RF: 0 allopurinol 100 mg tablet 100 mg QPM RF: 0 carbidopa-levodopa 25-100 mg tablet 1 tab PO TID RF: 0 diclofenac sodium [Voltaren Arthritis Pain] 1 % Gel 2 g EXT QID Qty: 100 RF: 0 levetiracetam 500 mg tablet 750 mg PO HS RF: 0 levetiracetam [Keppra] 500 mg tablet 1,000 mg PO QAM RF: 0 oxycodone 5 mg Tablet 5 mg PO Q4H PRN (Reason: pain) Qty: 30 RF: 0 sennosides [Senokot] 8.6 mg tablet 17.2 mg PO BID Qty: 0 RF: 0 Novolin N NPH U-100 Insulin 100 unit/mL Suspension 40 unit subcut QAM Qty: 10 RF: 0 polyethylene glycol 3350 [Miralax] 17 gram/dose Powder 17 g PO BID Qty: 0 RF: 0 albuterol sulfate [Ventolin HFA] 90 mcg/actuation Hfa Aerosol Inhaler 2 puff INHALATION Q4H Qty: 0 RF: 0 insulin aspart U-100 [Novolog Flexpen U-100 Insulin] 100 unit/mL (3 mL) insulin pen See Rx Instructions .ROUTE .COMPLEX Qty: 0 RF: 0 (DME) Oxygen Home Liters Per Minute See Rx Instructions .ROUTE .MEDSUPPLY Qty: 1 RF: 0 Referrals Referrals: Josh Gaspar MD [Primary Care Provider] -
[2021-07-21] MEDS ORDERED: PIPERACILL/TAZOBAC CONSULT ACTIVE PRN (00:18)
[2021-07-21] MEDS ORDERED: ONDANSETRON INJ 2 MG/ML 2 ML VIAL IV PRN (00:18)
[2021-07-21] MEDS: ALBUT/IPRATROP 3MG/0.5MG NEB 3 ML VIAL NEB SCH ×3 (00:31→07:02)
[2021-07-21] MEDS ORDERED: oxyCODONE HCL IR 5 MG TAB (IMMEDIATE RELEASE) PO STA (01:03)
[2021-07-21 01:19] LABS: C Reactive Protein 2.09 mg/dl (0-0.5); Magnesium 1.9 mg/dl (1.7-2.4); Phosphorus 3.4 mg/dl (2.5-4.9)
[2021-07-21] MEDS ORDERED: GLUCOSE 10 TABS/TUBE PO PRN (01:58)
[2021-07-21] MEDS ORDERED: DEXTROSE 50% 50 ML SYRINGE IV PRN (01:58)
[2021-07-21] MEDS ORDERED: GLUCOSE 40% GEL 15 GM TUBE PO PRN (01:58)
[2021-07-21] MEDS ORDERED: GLUCAGON FOR INJ 1 MG VIAL SQ PRN (01:58)
[2021-07-21] MEDS ORDERED: CARBOHYDRATES FOR HYPOGLYCEMIA PO PRN (01:58)
[2021-07-21] MEDS ORDERED: ALBUTEROL HFA 8 GM INHALER INH PRN (02:02)
[2021-07-21] MEDS: PIPERACILLIN/TAZOBACTAM 3.375 GM in DEXTROSE 5% 100 ML IV SCH ×3 (03:41→20:19)
[2021-07-21] MEDS ORDERED: WARFARIN SOD 7.5 MG TAB PO STA (03:42)
[2021-07-21 06:24] LABS: Basophils # (auto) 0.01 K/uL (0-0.2); Basophils % (auto) 0.2 %; Eosinophils # (auto) 0.08 K/uL (0-0.5); Eosinophils % (auto) 1.8 %; Hematocrit (blood only) 33.7 % (42-52); Hemoglobin 11.2 g/dL (14.0-18.0); Immature Granulocytes # (auto) 0.02 K/uL (0.00-0.02); Immature Granulocytes % (auto) 0.5 %; Lymphocytes # (auto) 0.66 K/uL (1.2-3.4); Lymphocytes % (auto) 15.1 %; Mean Corpuscular Hemoglobin 27.9 pg (25-34); Mean Corpuscular Hgb Conc 33.2 g/dL (32-36); Mean Corpuscular Volume 83.8 fL (80-100); Mean Platelet Volume 9.2 fL (7.4-10.4); Monocytes # (auto) 0.26 K/uL (0.11-0.59); Monocytes % (auto) 5.9 %; Neutrophils # (auto) 3.35 K/uL (1.4-6.5); Neutrophils % (auto) 76.5 %; Platelet Count 106 K/uL (130-400); Prothrombin Time 20.3 Seconds (9.0-12.0); RDW Coefficient of Variation 19.3 % (11.5-14.5); RDW Standard Deviation 60.2 fL (36.4-46.3); Red Blood Count 4.02 M/uL (4.7-6.1); White Blood Count 4.38 K/uL (4.8-10.8)
[2021-07-21 06:49] LABS: Troponin I 29.41 ng/ml (0-0.04)
[2021-07-21 07:04] LABS: Albumin Level 3.2 gm/dl (3.4-5.0); BUN Creatinine Ratio 22.7 (10-20); Bilirubin,Total 0.5 mg/dl (0.2-1.0); Calcium 8.6 mg/dl (8.5-10.1); Creatinine Clr Calc Pharmacy 68.4 ml/min; Est GFR (African American) 68.4 ml/min; Potassium 3.3 mmol/L (3.5-5.1); Total Protein 5.2 gm/dl (6.0-8.3)
[2021-07-21] MEDS: predniSONE 10 MG TABLET PO SCH (08:34)
[2021-07-21] MEDS: CARBIDOPA/LEVODOPA 25/100MG TAB PO SCH ×3 (08:34→20:23)
[2021-07-21] MEDS: TOPIRAMATE 100 MG TAB PO SCH ×2 (08:34→20:24)
[2021-07-21] MEDS: GABAPENTIN 300 MG CAP PO SCH ×2 (08:34→20:23)
[2021-07-21] MEDS: DICLOFENAC SOD 1% GEL 100 GM TUBE EXT SCH ×4 (08:34→20:46)
[2021-07-21] MEDS: FUROSEMIDE 20 MG TAB PO SCH (08:34)
[2021-07-21] MEDS: levETIRAcetam 500 MG TAB PO SCH (08:34)
[2021-07-21] MEDS: FEXOFENADINE HCL 180 MG TAB PO SCH (08:34)
[2021-07-21] MEDS: FINASTERIDE 5 MG TAB PO SCH (08:34)
[2021-07-21] MEDS: INSULIN GLARGINE SOLOSTAR 100 UNITS/ML 3 ML PEN SC SCH ×2 (08:35→20:50)
[2021-07-21] MEDS: INSULIN ASPART PER UNIT SC SCH ×4 (08:44→18:28)
[2021-07-21] MEDS: UMECLIDINIUM/VILANTEROL 62.5/25MCG 7 PUFFS/INHALER INH SCH (08:44)
[2021-07-21] MEDS: FLUTICASONE FUROATE 100MCG 14 PUFFS/INHALER INH SCH (08:45)
[2021-07-21] MEDS ORDERED: SENNA 8.6 MG TAB PO SCH (09:00)
[2021-07-21] MEDS ORDERED: NON-FORMULARY MEDICATION (Fluticasone-Umeclidin-Vilanter [Trelegy Ellipta] 100-62.5-25 mcg INH SCH (09:00)
[2021-07-21] MEDS ORDERED: POLYETHYLENE (MIRALAX) 17 GM PACK PO SCH (09:00)
[2021-07-21] MEDS: POTASSIUM CHLORIDE 10 MEQ TABCR PO SCH ×2 (09:54→18:10)
[2021-07-21] MEDS: ALBUTEROL HFA 8 GM INHALER INH SCH ×4 (11:08→19:21)
--- NOTE | 2021-07-21 13:06 | Hospitalist Progress Note ---
Date of Service July 21, 2021 Assessment & Plan (1) Shortness of breath: Plan: Appears to be due to right lower lobe pneumonia. Zosyn, day 2. No sputum for culture. Known ILD. Oxygen has been weaned off. (2) Chest pain: Plan: Patient has longstanding history of intermittent chest discomfort as well as persistently elevated troponin ongoing for the last several months. Prior concern for myocarditis - viral vs autoimmune/rheum etiology. He has been treated wtih Prednisone as well as colchicine with minimal improvement in chest discomfort. Echo during last hospitalization with preserved EF He was recently referred to [facility], seen by Cardiology there. Patient had a cardiac MRI performed which was NEGATIVE for infiltrative cardiac findings or myocarditis. Cardiology felt that his chest discomfort is most likely due to his underlying lung pathology and did not strongly feel that patient has myocarditis. Continue telemetry. (3) Gout: Plan: Chronic. Quiescent. Continue Allopurinol (4) Seizure: Plan: No recent seizure activity. Continue Keppra and Topamax (5) Chronic pulmonary aspiration: Plan: Aspiration precautions. Easy to chew diet. (6) Parkinsonism: Plan: Continue Carbidopa-Levodopa. 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 ?RA/Polymyositis/Dermatomyositis. He was on Rutuximab in the past but was not tolerated. Note from 05/2021 from [facility] - Question whether his ILD is truly ILD or if it is from chronic aspiration. Patient follows with Pulmonary. Currently being worked up by Rheumatolgy and Pulmonary. Continue Prednisone (8) Rheumatoid arthritis: Plan: Patient is followed by Rheumatology. Was seen by Rheum recently at [facility] as well. Consultation states that the diagnosis of RA is questionable. Patient does have a strong family history of RA, however, has not had documented synovitis, RF negative and CCP mildly elevated. 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 Pulmonary consult appreciated. Continue Prednisone 10mg po daily (9) Chronic kidney disease, stage 3a: Plan: Near baseline. Monitor intake and output. Serial lab studies. Avoid nephrotox ic agents (10) PAF (paroxysmal atrial fibrillation): Plan: Rate controlled. On anticoagulation for mechanical aortic valve. Continue Coumadin therapy. Serial INR (11) CAD (coronary artery disease): Plan: Patient with history of stent placement to Left main performed in [place] in 2019. Heart cath 05/25/21 at [facility] with widely patent stent, nonobstructive disease to LAD. Patient continues to have persistent chest discomfort - unchanged over the last several months. Dull ache with episodes of sharp pain. Continue current med management. Telemetry. (12) HLD (hyperlipidemia): Plan: Continue Atorvastatin (13) Diabetes: Plan: Type II. ADA diet. Continue basal insulin therapy. 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 Follows with Rheumatology. (15) Diarrhea: Plan: Patient reports 4 days of diarrhea, watery, nonbloody. Checking C.diff and norvirus. Treated with IVF and electrolyte repletion. (16) Aortic valve replaced: Plan: Mechanical aortic valve in place. Patient on Coumadin. Goal INR of 2.5 - 3.5. Serial labs. (17) Pneumonia: Plan: Right lower lobe involvement. Continue Zosyn, day 2. Sputum culture if sputum is produced (18) Hypokalemia: Plan: Mild. Oral potassium replacement. Serial labs Plan: Disposition: Eventual discharge to home Admission and Anticipated Discharge Date Admission Date: July 20, 2021 Subjective Alert and oriented. Pleasant. Probable right lower lobe pneumonia causing the shortness of breath. He is currently on Zosyn, day 2. Potassium replacement underway. Review of Systems Review of Systems: Constitutional-no fever or chills ENT-no blurred vision, no double vision, no epistaxis, no sore throat Respiratory-nonproductive cough. No hemoptysis. No wheezing Cardiac-no palpitations, no chest pain, no syncope GI-no nausea, vomiting, diarrhea, melena, hematochezia -no urinary retention, no urinary incontinence, no dysuria, no hematuria Musculoskeletal-no joint pain, no muscle tenderness Skin-no bruising, no rashes, no pruritus Neuro-no isolated weakness, no paresthesia, no weakness Psych-no depression, no anxiety Physical Exam Physical Exam: General-alert and oriented x3, no fevers, no chills HEENT-head atraumatic and normocephalic, TMs intact bilaterally, pupils equal and reactive to light, extraocular muscles intact Neck-no lymphadenopathy or thyromegaly, trachea midline Chest-bilateral adventitious respiratory noise. No wheezing. Cardiac-regular rate and rhythm, normal S1 and S2, no murmurs Abdomen-normal bowel sounds, nontender, no hepatosplenomegaly Extremities-no cyanosis, clubbing, or edema Neuro-cranial nerves II through XII intact, motor and sensory function within normal limits, strength symmetrical , no focal deficits Psych-normal affect, normal mood Results & Data Results & Data ([facility]) Vital Signs (Past 12 Hours) Vital Signs Temp Pulse Resp BP BP Pulse Ox 07/21/21 11:08 73 16 95 07/21/21 07:40 36.6 C 68 18 107/65 97 07/21/21 07:03 68 16 96 07/21/21 04:00 99/61 L 07/21/21 03:30 77 16 97 Laboratory Results 07/21/21 05:50 07/21/21 05:50 PG Care Time/CCT Total # of Minutes Spent Total Time Spent with Patient: Total time spent is greater than 50% in coordination of care (as documented) at patient's floor/unit and/or counseling patient: Coding Level of Care Code 35093 Subseq Hosp Care Lvl 3 Diagnoses Shortness of breath R06.02 Chest pain R07.2 Chest pain type: precordial pain Gout M10.9 Seizure R56.9 Chronic pulmonary aspiration T17.908A Parkinsonism G20 Parkinsonism type: unspecified 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; M35.9 Rheumatoid arthritis M06.9 Rheumatoid arthritis location: unspecified site Rheumatoid factor presence: unspecified presence Chronic kidney disease, stage 3a N18.3 PAF (paroxysmal atrial fibrillation) I48.0 CAD (coronary artery disease) I25.10 Coronary Disease-Associated Artery/Lesion type: [place] artery [place] vs. transplanted heart: [place] heart Associated angina: without angina HLD (hyperlipidemia) E78.2 Hyperlipidemia type: mixed hyperlipidemia Diabetes E11.42; Z79.4 Diabetes mellitus type: type 2 Diabetes mellitus half-way insulin use: with exterminator use Diabetes mellitus complication status: with neurologic complications Diabetes mellitus complication detail: with polyneuropathy Polymyositis M33.20 Diarrhea R19.7 Diarrhea type: unspecified type Aortic valve replaced Z95.2 Pneumonia J18.9 Hypokalemia E87.6 (1) Chest pain Chest pain type: precordial pain Qualified Code(s): R07.2 - Precordial pain (2) Parkinsonism Parkinsonism type: unspecified Qualified Code(s): G20 - Parkinson's disease (3) Rheumatoid arthritis Rheumatoid arthritis location: unspecified site Rheumatoid factor presence: unspecified presence Qualified Code(s): M06.9 - Rheumatoid arthritis, unspecified (4) CAD (coronary artery disease) Coronary Disease-Associated Artery/Lesion type: [place] artery [place] vs. transplanted heart: [place] heart Associated angina: without angina Qualified Code(s): I25.10 - Atherosclerotic heart disease of [place] coronary artery without angina pectoris (5) HLD (hyperlipidemia) Hyperlipidemia type: mixed hyperlipidemia Qualified Code(s): E78.2 - Mixed hyperlipidemia (6) Diabetes Diabetes mellitus type: type 2 Diabetes mellitus exterminator insulin use: with half-way use Diabetes mellitus complication status: with neurologic complications Diabetes mellitus complication detail: with polyneuropathy Qualified Code(s): E11.42 - Type 2 diabetes mellitus with diabetic polyneuropathy; Z79.4 - USP (current) use of insulin (7) Diarrhea Diarrhea type: unspecified type Qualified Code(s): R19.7 - Diarrhea, unspecified
[2021-07-21] MEDS: oxyCODONE HCL IR 5 MG TAB (IMMEDIATE RELEASE) PO PRN ×2 (14:20→20:18)
--- NOTE | 2021-07-21 16:55 | Electrocardiogram Report ---
Test Reason : Blood Pressure : / mmHG Vent. Rate : 088 BPM Atrial Rate : 088 BPM P-R Int : 118 ms QRS Dur : 080 ms QT Int : 392 ms P-R-T Axes : 005 032 086 degrees QTc Int : 474 ms Sinus rhythm with Premature atrial complexes with Aberrant conduction Possible Left atrial enlargement Borderline ECG When compared with ECG of 30-JUN-2021 17:07, Premature ventricular complexes are no longer Present Confirmed by Cody Soto ([id number]) on 07/21/2021 4:54:47 PM Referred By: REFERRED SELF Confirmed By:Wyatt Soto
[2021-07-21] MEDS ORDERED: Nursing to Pharmacy Communication SCH (18:00)
[2021-07-21] MEDS: POLYETHYLENE (MIRALAX) 17 GM PACK PO PRN (18:10)
[2021-07-21] MEDS: levETIRAcetam 250 MG TAB PO SCH (20:23)
[2021-07-21] MEDS: ATORVASTATIN 40 MG TAB PO SCH (20:24)
[2021-07-21] MEDS: allopurinoL 100 MG TAB PO SCH (20:25)
[2021-07-21] MEDS: WARFARIN SOD 7.5 MG TAB PO SCH (20:25)
[2021-07-21] MEDS ORDERED: INSULIN ASPART PER UNIT SC SCH (21:00)
[2021-07-22] MEDS: PIPERACILLIN/TAZOBACTAM 3.375 GM in DEXTROSE 5% 100 ML IV SCH ×3 (05:18→20:44)
[2021-07-22 06:19] LABS: Basophils # (auto) 0.02 K/uL (0-0.2); Basophils % (auto) 0.4 %; Eosinophils # (auto) 0.17 K/uL (0-0.5); Eosinophils % (auto) 3.7 %; Hematocrit (blood only) 34.7 % (42-52); Hemoglobin 10.9 g/dL (14.0-18.0); Immature Granulocytes # (auto) 0.02 K/uL (0.00-0.02); Immature Granulocytes % (auto) 0.4 %; Lymphocytes # (auto) 0.62 K/uL (1.2-3.4); Lymphocytes % (auto) 13.4 %; Mean Corpuscular Hemoglobin 27.1 pg (25-34); Mean Corpuscular Hgb Conc 31.4 g/dL (32-36); Mean Corpuscular Volume 86.3 fL (80-100); Mean Platelet Volume 9.6 fL (7.4-10.4); Monocytes # (auto) 0.25 K/uL (0.11-0.59); Monocytes % (auto) 5.4 %; Neutrophils # (auto) 3.53 K/uL (1.4-6.5); Neutrophils % (auto) 76.7 %; Platelet Count 114 K/uL (130-400); RDW Coefficient of Variation 19.4 % (11.5-14.5); RDW Standard Deviation 61.9 fL (36.4-46.3); Red Blood Count 4.02 M/uL (4.7-6.1); White Blood Count 4.61 K/uL (4.8-10.8)
[2021-07-22 06:29] LABS: INR 2.3 (0.9-1.1); Prothrombin Time 23.5 Seconds (9.0-12.0)
[2021-07-22 06:43] LABS: BUN Creatinine Ratio 19.5 (10-20); Calcium 8.4 mg/dl (8.5-10.1); Creatinine Clr Calc Pharmacy 63.6 ml/min; Est GFR (African American) 62.6 ml/min; Potassium 3.6 mmol/L (3.5-5.1)
[2021-07-22] MEDS: ALBUTEROL HFA 8 GM INHALER INH SCH ×4 (07:23→19:36)
[2021-07-22] MEDS: INSULIN ASPART PER UNIT SC SCH ×4 (08:43→21:00)
[2021-07-22] MEDS: CARBIDOPA/LEVODOPA 25/100MG TAB PO SCH ×3 (09:10→20:45)
[2021-07-22] MEDS: TOPIRAMATE 100 MG TAB PO SCH ×2 (09:10→20:47)
[2021-07-22] MEDS: FUROSEMIDE 20 MG TAB PO SCH (09:10)
[2021-07-22] MEDS: GABAPENTIN 300 MG CAP PO SCH ×2 (09:10→20:45)
[2021-07-22] MEDS: levETIRAcetam 500 MG TAB PO SCH (09:10)
[2021-07-22] MEDS: FEXOFENADINE HCL 180 MG TAB PO SCH (09:10)
[2021-07-22] MEDS: DICLOFENAC SOD 1% GEL 100 GM TUBE EXT SCH ×4 (09:10→20:52)
[2021-07-22] MEDS: FINASTERIDE 5 MG TAB PO SCH (09:10)
[2021-07-22] MEDS: predniSONE 10 MG TABLET PO SCH (09:10)
[2021-07-22] MEDS: POTASSIUM CHLORIDE 10 MEQ TABCR PO SCH ×2 (09:10→17:36)
[2021-07-22] MEDS: FLUTICASONE FUROATE 100MCG 14 PUFFS/INHALER INH SCH (09:11)
[2021-07-22] MEDS: UMECLIDINIUM/VILANTEROL 62.5/25MCG 7 PUFFS/INHALER INH SCH (09:11)
[2021-07-22] MEDS: INSULIN GLARGINE SOLOSTAR 100 UNITS/ML 3 ML PEN SC SCH ×2 (09:11→21:01)
--- NOTE | 2021-07-22 11:52 | Hospitalist Progress Note ---
Date of Service July 22, 2021 Assessment & Plan (1) Shortness of breath: Plan: due to right lower lobe pneumonia. Zosyn, day 3. No sputum for culture. Known ILD. Oxygen has been weaned off. (2) Chest pain: Plan: Patient has longstanding history of intermittent chest discomfort as well as per sistently elevated troponin ongoing for the last several months. Prior concern for myocarditis - viral vs autoimmune/rheum etiology. He has been treated wtih Prednisone as well as colchicine with minimal improvement in chest discomfort. Echo during last hospitalization with preserved EF. He was recently referred to [facility], seen by Cardiology there. Patient had a cardiac MRI performed which was NEGATIVE for infiltrative cardiac findings or myocarditis. Cardiology felt that his chest discomfort is most likely due to his underlying lung pathology and did not strongly feel that patient has myocarditis. Continue telemetry. (3) Gout: Plan: Chronic. Quiescent. Continue Allopurinol (4) Seizure: Plan: No recent seizure activity. Continue Keppra and Topamax (5) Chronic pulmonary aspiration: Plan: Aspiration precautions. Easy to chew diet. (6) Parkinsonism: Plan: Continue Carbidopa-Levodopa. 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 ?RA/Polymyositis/Dermatomyositis. He was on Rutuximab in the past but was not tolerated. Note from 05/2021 from [facility] - Question whether his ILD is truly ILD or if it is from chronic aspiration. Patient follows with Pulmonary. Currently being worked up by Rheumatolgy and Pulmonary. Continue Prednisone (8) Rheumatoid arthritis: Plan: Patient is followed by Rheumatology. Was seen by Rheum recently at [facility] as well. Consultation states that the diagnosis of RA is questionable. Patient does have a strong family history of RA, however, has not had documented synovitis, RF negative and CCP mildly elevated. 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 Pulmonary consult appreciated. Continue Prednisone 10mg po daily (9) Chronic kidney disease, stage 3a: Plan: Near baseline. Monitor intake and output. Serial lab studies. Avoid nephrotoxic agents (10) PAF (paroxysmal atrial fibrillation): Plan: Rate controlled. On anticoagulation for mechanical aortic valve. Continue Coumadin therapy. Serial INR (11) CAD (coronary artery disease): Plan: Patient with history of stent placement to Left main performed in [place] in 2019. Heart cath 05/25/21 at [facility] with widely patent stent, nonobstructive disease to LAD. Patient continues to have persistent chest discomfort - unchanged over the last several months. Dull ache with episodes of sharp pain. Continue current med management. Telemetry. (12) HLD (hyperlipidemia): Plan: Continue Atorvastatin (13) Diabetes: Plan: Type II. ADA diet. Continue basal insulin therapy. 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 Follows with Rheumatology. (15) Diarrhea: Plan: Patient reports 4 days of diarrhea, watery, nonbloody. No report of positive C. difficile toxin. Treated with IVF and electrolyte repletion. (16) Aortic valve replaced: Plan: Mechanical aortic valve in place. Patient on Coumadin. Goal INR of 2.5 - 3.5. Serial labs. (17) Pneumonia: Plan: Right lower lobe involvement. Continue Zosyn, day 3. Sputum culture if sputum is produced (18) Hypokalemia: Plan: Corrected with oral potassium replacement. Serial labs Plan: Disposition: Probable SNF for rehab placement at discharge. Admission and Anticipated Discharge Date Admission Date: July 20, 2021 Subjective Alert and oriented. He is improving. Oxygen has been weaned off. Physical therapy has recommended rehab placement which the patient is agreeable to and will be pursued. He will probably be hospitalized through the weekend until arrangements can be finalized. Mild hypokalemia has been corrected and INR today is 2.3. Zosyn day 3. Review of Systems Review of Systems: Constitutional-no fever or chills ENT-no blurred vision, no double vision, no epistaxis, no sore throat Respiratory-no cough, no wheezing, no shortness of breath Cardiac-no palpitations, no chest pain, no syncope GI-no nausea, vomiting, diarrhea, melena, hematochezia -no urinary retention, no urinary incontinence, no dysuria, no hematuria Musculoskeletal-no joint pain, no muscle tenderness Skin-no bruising, no rashes, no pruritus Neuro-no isolated weakness, no paresthesia, no weakness Psych-no depression, no anxiety Physical Exam 2 Physical Exam: General-alert and oriented x3, no fevers, no chills HEENT-head atraumatic and normocephalic, TMs intact bilaterally, pupils equal and reactive to light, extraocular muscles intact Neck-no lymphadenopathy or thyromegaly, trachea midline Chest-clear to auscultation percussion. No rales wheezing or rhonchi Cardiac-regular rate and rhythm, normal S1 and S2, no murmurs Abdomen-normal bowel sounds, nontender, no hepatosplenomegaly Extremities-no cyanosis, clubbing, or edema Neuro-cranial nerves II through XII intact, motor and sensory function within normal limits, strength symmetrical , no focal deficits Psych-normal affect, normal mood Results & Data Results & Data ([facility]) Vital Signs (Past 12 Hours) Vital Signs Temp Pulse Resp BP Pulse Ox 07/22/21 11:18 53 L 18 93 07/22/21 07:50 36.4 C L 80 16 97/64 L 95 07/22/21 07:24 84 16 95 Laboratory Results 07/22/21 05:48 07/22/21 05:48 PG Care Time/CCT Total # of Minutes Spent Total Time Spent with Patient: Total time spent is greater than 50% in coordination of care (as documented) at patient's floor/unit and/or counseling patient: Coding Level of Care Code 31068 Subseq Hosp Care Lvl 3 Diagnoses Shortness of breath R06.02 Chest pain R07.2 Chest pain type: precordial pain Gout M10.9 Seizure R56.9 Chronic pulmonary aspiration T17.908A Parkinsonism G20 Parkinsonism type: unspecified 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; M35.9 Rheumatoid arthritis M06.9 Rheumatoid arthritis location: unspecified site Rheumatoid factor presence: unspecified presence Chronic kidney disease, stage 3a N18.3 PAF (paroxysmal atrial fibrillation) I48.0 CAD (coronary artery disease) I25.10 Coronary Disease-Associated Artery/Lesion type: [place] artery [place] vs. 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 insulin use: with half-way use Diabetes mellitus complication status: with neurologic complications Diabetes mellitus complication detail: with polyneuropathy Polymyositis M33.20 Diarrhea R19.7 Diarrhea type: unspecified type Aortic valve replaced Z95.2 Pneumonia J18.9 Hypokalemia E87.6 (1) Chest pain Chest pain type: precordial pain Qualified Code(s): R07.2 - Precordial pain (2) Parkinsonism Parkinsonism type: unspecified Qualified Code(s): G20 - Parkinson's disease (3) Rheumatoid arthritis Rheumatoid arthritis location: unspecified site Rheumatoid factor presence: unspecified presence Qualified Code(s): M06.9 - Rheumatoid arthritis, unspecified (4) CAD (coronary artery disease) Coronary Disease-Associated Artery/Lesion type: [place] artery [place] vs. transplanted heart: [place] heart Associated angina: without angina Qualified Code(s): I25.10 - Atherosclerotic heart disease of [place] coronary artery without angina pectoris (5) HLD (hyperlipidemia) Hyperlipidemia type: mixed hyperlipidemia Qualified Code(s): E78.2 - Mixed hyperlipidemia (6) Diabetes Diabetes mellitus type: type 2 Diabetes mellitus bed bug exterminator insulin use: with half-way use Diabetes mellitus complication status: with neurologic complications Diabetes mellitus complication detail: with polyneuropathy Qualified Code(s): E11.42 - Type 2 diabetes mellitus with diabetic polyneuropathy; Z79.4 - longterm (current) use of insulin (7) Diarrhea Diarrhea type: unspecified type Qualified Code(s): R19.7 - Diarrhea, unspecified
[2021-07-22] MEDS ORDERED: CARBOHYDRATES FOR HYPOGLYCEMIA PO PRN (12:37)
[2021-07-22] MEDS ORDERED: GLUCAGON FOR INJ 1 MG VIAL SQ PRN (12:37)
[2021-07-22] MEDS ORDERED: GLUCOSE 40% GEL 15 GM TUBE PO PRN (12:37)
[2021-07-22] MEDS ORDERED: GLUCOSE 10 TABS/TUBE PO PRN (12:37)
[2021-07-22] MEDS ORDERED: DEXTROSE 50% 50 ML SYRINGE IV PRN (12:37)
[2021-07-22] MEDS: SENNA 8.6 MG TAB PO PRN (14:03)
[2021-07-22] MEDS ORDERED: INSULIN ASPART PER UNIT SC SCH (18:00)
[2021-07-22] MEDS: ATORVASTATIN 40 MG TAB PO SCH (20:45)
[2021-07-22] MEDS: allopurinoL 100 MG TAB PO SCH (20:45)
[2021-07-22] MEDS: WARFARIN SOD 7.5 MG TAB PO SCH (20:46)
[2021-07-22] MEDS: levETIRAcetam 250 MG TAB PO SCH (20:47)
[2021-07-22] MEDS: oxyCODONE HCL IR 5 MG TAB (IMMEDIATE RELEASE) PO PRN (20:51)
[2021-07-23] MEDS: PIPERACILLIN/TAZOBACTAM 3.375 GM in DEXTROSE 5% 100 ML IV SCH ×3 (04:58→20:21)
[2021-07-23 06:27] LABS: Basophils # (auto) 0.01 K/uL (0-0.2); Basophils % (auto) 0.2 %; Eosinophils # (auto) 0.21 K/uL (0-0.5); Eosinophils % (auto) 4.7 %; Hematocrit (blood only) 34.6 % (42-52); Hemoglobin 10.9 g/dL (14.0-18.0); Immature Granulocytes # (auto) 0.03 K/uL (0.00-0.02); Immature Granulocytes % (auto) 0.7 %; Lymphocytes # (auto) 0.65 K/uL (1.2-3.4); Lymphocytes % (auto) 14.6 %; Mean Corpuscular Hemoglobin 27.3 pg (25-34); Mean Corpuscular Hgb Conc 31.5 g/dL (32-36); Mean Corpuscular Volume 86.5 fL (80-100); Mean Platelet Volume 9.3 fL (7.4-10.4); Monocytes % (auto) 4.5 %; Neutrophils # (auto) 3.34 K/uL (1.4-6.5); Neutrophils % (auto) 75.3 %; Platelet Count 117 K/uL (130-400); RDW Coefficient of Variation 19.2 % (11.5-14.5); RDW Standard Deviation 61.2 fL (36.4-46.3); White Blood Count 4.44 K/uL (4.8-10.8)
[2021-07-23 06:54] LABS: BUN Creatinine Ratio 19.3 (10-20); Calcium 8.5 mg/dl (8.5-10.1); Creatinine Clr Calc Pharmacy 68.4 ml/min; Est GFR (African American) 68.4 ml/min; Potassium 3.6 mmol/L (3.5-5.1)
[2021-07-23 07:06] LABS: INR 2.9 (0.9-1.1); Prothrombin Time 29.5 Seconds (9.0-12.0)
[2021-07-23] MEDS: ALBUTEROL HFA 8 GM INHALER INH SCH ×5 (07:15→19:51)
[2021-07-23] MEDS: GABAPENTIN 300 MG CAP PO SCH ×2 (08:09→20:29)
[2021-07-23] MEDS: POTASSIUM CHLORIDE 10 MEQ TABCR PO SCH ×2 (08:09→17:38)
[2021-07-23] MEDS: TOPIRAMATE 100 MG TAB PO SCH ×2 (08:09→20:28)
[2021-07-23] MEDS: FUROSEMIDE 20 MG TAB PO SCH (08:09)
[2021-07-23] MEDS: predniSONE 10 MG TABLET PO SCH (08:09)
[2021-07-23] MEDS: FINASTERIDE 5 MG TAB PO SCH (08:09)
[2021-07-23] MEDS: DICLOFENAC SOD 1% GEL 100 GM TUBE EXT SCH ×4 (08:09→20:26)
[2021-07-23] MEDS: FEXOFENADINE HCL 180 MG TAB PO SCH (08:09)
[2021-07-23] MEDS: SENNA 8.6 MG TAB PO PRN (08:09)
[2021-07-23] MEDS: levETIRAcetam 500 MG TAB PO SCH (08:09)
[2021-07-23] MEDS: CARBIDOPA/LEVODOPA 25/100MG TAB PO SCH ×3 (08:09→20:28)
[2021-07-23] MEDS: UMECLIDINIUM/VILANTEROL 62.5/25MCG 7 PUFFS/INHALER INH SCH (08:10)
[2021-07-23] MEDS: FLUTICASONE FUROATE 100MCG 14 PUFFS/INHALER INH SCH (08:10)
[2021-07-23] MEDS: INSULIN GLARGINE SOLOSTAR 100 UNITS/ML 3 ML PEN SC SCH ×2 (09:22→20:35)
[2021-07-23] MEDS: INSULIN ASPART PER UNIT SC SCH ×4 (09:23→20:39)
--- NOTE | 2021-07-23 11:17 | Hospitalist Progress Note ---
Date of Service July 23, 2021 Assessment & Plan (1) Shortness of breath: Plan: due to right lower lobe pneumonia. Zosyn, day 4. No sputum for culture. Known ILD. Oxygen has been weaned off. (2) Chest pain: Plan: Patient has longstanding history of intermittent chest discomfort as well as per sistently elevated troponin ongoing for the last several months. Prior concern for myocarditis - viral vs autoimmune/rheum etiology. He has been treated wtih Prednisone as well as colchicine with minimal improvement in chest discomfort. Echo during last hospitalization with preserved EF. He was recently referred to [facility], seen by Cardiology there. Patient had a cardiac MRI performed which was NEGATIVE for infiltrative cardiac findings or myocarditis. Cardiology felt that his chest discomfort is most likely due to his underlying lung pathology and did not strongly feel that patient has myocarditis. Continue telemetry. (3) Gout: Plan: Chronic. Quiescent. Continue Allopurinol (4) Seizure: Plan: No recent seizure activity. Continue Keppra and Topamax (5) Chronic pulmonary aspiration: Plan: Aspiration precautions. Easy to chew diet. (6) Parkinsonism: Plan: Continue Carbidopa-Levodopa. 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 ?RA/Polymyositis/Dermatomyositis. He was on Rutuximab in the past but was not tolerated. Note from 05/2021 from [facility] - Question whether his ILD is truly ILD or if it is from chronic aspiration. Patient follows with Pulmonary. Currently being worked up by Rheumatolgy and Pulmonary. Continue Prednisone (8) Rheumatoid arthritis: Plan: Patient is followed by Rheumatology. Was seen by Rheum recently at [facility] as well. Consultation states that the diagnosis of RA is questionable. Patient does have a strong family history of RA, however, has not had documented synovitis, RF negative and CCP mildly elevated. 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 Pulmonary consult appreciated. Continue Prednisone 10mg po daily (9) Chronic kidney disease, stage 3a: Plan: Near baseline. Monitor intake and output. Serial lab studies. Avoid nephrotoxic agents (10) PAF (paroxysmal atrial fibrillation): Plan: Rate controlled. On anticoagulation for mechanical aortic valve. Continue Coumadin therapy. Serial INR (11) CAD (coronary artery disease): Plan: Patient with history of stent placement to Left main performed in [place] in 2019. Heart cath 05/25/21 at [facility] with widely patent stent, nonobstructive disease to LAD. Patient continues to have persistent chest discomfort - unchanged over the last several months. Dull ache with episodes of sharp pain. Continue current med management. Telemetry. (12) HLD (hyperlipidemia): Plan: Continue Atorvastatin (13) Diabetes: Plan: Type II. ADA diet. Continue basal insulin therapy. 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 Follows with Rheumatology. (15) Diarrhea: Plan: Patient reports 4 days of diarrhea, watery, nonbloody. No report of positive C. difficile toxin. Treated with IVF and electrolyte repletion. (16) Aortic valve replaced: Plan: Mechanical aortic valve in place. Patient on Coumadin. Goal INR of 2.5 - 3.5. Serial labs. (17) Pneumonia: Plan: Right lower lobe involvement. Continue Zosyn, day 4. Sputum culture if sputum is produced. Repeat CXR today, 07/23 (18) Hypokalemia: Plan: Corrected with oral potassium replacement. Serial labs Plan: Disposition: Probable SNF for rehab placement at discharge. Admission and Anticipated Discharge Date Admission Date: July 20, 2021 Subjective Alert and pleasant. I explained the need to down titrate the Coumadin due to rising INR associated with antibiotic therapy. Will repeat chest x-ray today. Overall he is stable Review of Systems Review of Systems: Constitutional-no fever or chills ENT-no blurred vision, no double vision, no epistaxis, no sore throat Respiratory-no cough, no wheezing, no shortness of breath Cardiac-no palpitations, no chest pain, no syncope GI-no nausea, vomiting, diarrhea, melena, hematochezia -no urinary retention, no urinary incontinence, no dysuria, no hematuria Musculoskeletal-no joint pain, no muscle tenderness Skin-no bruising, no rashes, no pruritus Neuro-no isolated weakness, no paresthesia, no weakness Psych-no depression, no anxiety Physical Exam Physical Exam: General-alert and oriented x3, no fevers, no chills HEENT-head atraumatic and normocephalic, TMs intact bilaterally, pupils equal and reactive to light, extraocular muscles intact Neck-no lymphadenopathy or thyromegaly, trachea midline Chest-clear to auscultation percussion. No rales wheezing or rhonchi Cardiac-regular rate and rhythm, normal S1 and S2, no murmurs Abdomen-normal bowel sounds, nontender, no hepatosplenomegaly Extremities-no cyanosis, clubbing, or edema Neuro-cranial nerves II through XII intact, motor and sensory function within normal limits, strength symmetrical , no focal deficits Psych-normal affect, normal mood Results & Data Results & Data ([facility]) Vital Signs (Past 12 Hours) Vital Signs Temp Pulse Resp BP Pulse Ox 07/23/21 07:40 36.4 C L 75 18 144/81 H 96 07/23/21 07:15 71 18 94 Laboratory Results 07/23/21 05:47 07/23/21 05:47 PG Care Time/CCT Total # of Minutes Spent Total Time Spent with Patient: Total time spent is greater than 50% in coordination of care (as documented) at patient's floor/unit and/or counseling patient: Coding Level of Care Code 63060 Subseq Hosp Care Lvl 3 Diagnoses Shortness of breath R06.02 Chest pain R07.2 Chest pain type: precordial pain Gout M10.9 Seizure R56.9 Chronic pulmonary aspiration T17.908A Parkinsonism G20 Parkinsonism type: unspecified 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; M35.9 Rheumatoid arthritis M06.9 Rheumatoid arthritis location: unspecified site Rheumatoid factor presence: unspecified presence Chronic kidney disease, stage 3a N18.3 PAF (paroxysmal atrial fibrillation) I48.0 CAD (coronary artery disease) I25.10 Coronary Disease-Associated Artery/Lesion type: [place] artery [place] vs. transplanted heart: [place] heart Associated angina: without angina HLD (hyperlipidemia) E78.2 Hyperlipidemia type: mixed hyperlipidemia Diabetes E11.42; Z79.4 Diabetes mellitus type: type 2 Diabetes mellitus half-way insulin use: with 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 use Diabetes mellitus complication status: with neurologic complications Diabetes mellitus complication detail: with polyneuropathy Polymyositis M33.20 Diarrhea R19.7 Diarrhea type: unspecified type Aortic valve replaced Z95.2 Pneumonia J18.9 Hypokalemia E87.6 (1) Chest pain Chest pain type: precordial pain Qualified Code(s): R07.2 - Precordial pain (2) Parkinsonism Parkinsonism type: unspecified Qualified Code(s): G20 - Parkinson's disease (3) Rheumatoid arthritis Rheumatoid arthritis location: unspecified site Rheumatoid factor presence: unspecified presence Qualified Code(s): M06.9 - Rheumatoid arthritis, unspecified (4) CAD (coronary artery disease) Coronary Disease-Associated Artery/Lesion type: [place] artery [place] vs. 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
--- NOTE | 2021-07-23 12:11 | XRay Report ---
XR chest 2V PA/lateral CLINICAL HISTORY: Fall right basilar consolidation. Evaluate for right lower lobe pneumonia. COMPARISON STUDY: 07/20/2021 TECHNIQUE: 2 views of the chest FINDINGS: Frontal and lateral radiographs of the chest demonstrates the heart to again be mildly enlarged statu s post aortic valve replacement. Compared to the previous examination, right lower lobe alveolar opac ity is no longer seen and most likely represented pleural fluid within the major fissure. Small pleur al effusion is noted posteriorly on the lateral radiograph. The remainder the lungs are clear. There is no evidence for left pleural effusion. There is no eviden ce for vascular congestion. There is no acute osseous pathology. IMPRESSION: 1. Resolution of alveolar opacities the right lung base which most likely represented pleural fluid w ithin the major fissure. 2. No alveolar opacities are identified. 3. Small right pleural effusion is present as noted on the lateral radiograph. ACT 112: Negative or not required by law. Electronically signed by: Trent Kne M.D. 07/23/2021 12:10 PM
[2021-07-23] MEDS: POLYETHYLENE (MIRALAX) 17 GM PACK PO PRN (20:26)
[2021-07-23] MEDS: WARFARIN SOD 5 MG TAB PO SCH (20:27)
[2021-07-23] MEDS: levETIRAcetam 250 MG TAB PO SCH (20:28)
[2021-07-23] MEDS: allopurinoL 100 MG TAB PO SCH (20:28)
[2021-07-23] MEDS: ATORVASTATIN 40 MG TAB PO SCH (20:29)
[2021-07-23] MEDS: oxyCODONE HCL IR 5 MG TAB (IMMEDIATE RELEASE) PO PRN (20:34)
[2021-07-24] MEDS: PIPERACILLIN/TAZOBACTAM 3.375 GM in DEXTROSE 5% 100 ML IV SCH ×3 (03:51→21:29)
[2021-07-24 06:35] LABS: Basophils # (auto) 0.01 K/uL (0-0.2); Basophils % (auto) 0.3 %; Eosinophils # (auto) 0.22 K/uL (0-0.5); Eosinophils % (auto) 5.9 %; Hematocrit (blood only) 36.2 % (42-52); Hemoglobin 11.2 g/dL (14.0-18.0); Immature Granulocytes # (auto) 0.05 K/uL (0.00-0.02); Immature Granulocytes % (auto) 1.4 %; Lymphocytes # (auto) 0.72 K/uL (1.2-3.4); Lymphocytes % (auto) 19.5 %; Mean Corpuscular Hemoglobin 26.9 pg (25-34); Mean Corpuscular Hgb Conc 30.9 g/dL (32-36); Mean Platelet Volume 9.6 fL (7.4-10.4); Monocytes # (auto) 0.24 K/uL (0.11-0.59); Monocytes % (auto) 6.5 %; Neutrophils # (auto) 2.46 K/uL (1.4-6.5); Neutrophils % (auto) 66.4 %; Platelet Count 127 K/uL (130-400); RDW Coefficient of Variation 19.3 % (11.5-14.5); RDW Standard Deviation 61.8 fL (36.4-46.3); Red Blood Count 4.16 M/uL (4.7-6.1)
[2021-07-24 06:38] LABS: Prothrombin Time 30.3 Seconds (9.0-12.0)
[2021-07-24 06:55] LABS: BUN Creatinine Ratio 19.8 (10-20); Calcium 8.9 mg/dl (8.5-10.1); Creatinine Clr Calc Pharmacy 67.3 ml/min; Est GFR (Non-African American) 57.8 ml/min; Potassium 3.9 mmol/L (3.5-5.1)
[2021-07-24] MEDS: ALBUTEROL HFA 8 GM INHALER INH SCH ×3 (07:32→15:16)
[2021-07-24] MEDS: POTASSIUM CHLORIDE 10 MEQ TABCR PO SCH ×2 (08:24→17:32)
[2021-07-24] MEDS: FEXOFENADINE HCL 180 MG TAB PO SCH (08:24)
[2021-07-24] MEDS: oxyCODONE HCL IR 5 MG TAB (IMMEDIATE RELEASE) PO PRN ×2 (08:24→21:44)
[2021-07-24] MEDS: FINASTERIDE 5 MG TAB PO SCH (08:25)
[2021-07-24] MEDS: FLUTICASONE FUROATE 100MCG 14 PUFFS/INHALER INH SCH (08:25)
[2021-07-24] MEDS: DICLOFENAC SOD 1% GEL 100 GM TUBE EXT SCH ×4 (08:25→21:35)
[2021-07-24] MEDS: predniSONE 10 MG TABLET PO SCH (08:25)
[2021-07-24] MEDS: GABAPENTIN 300 MG CAP PO SCH ×2 (08:25→21:34)
[2021-07-24] MEDS: FUROSEMIDE 20 MG TAB PO SCH (08:25)
[2021-07-24] MEDS: TOPIRAMATE 100 MG TAB PO SCH ×2 (08:25→21:34)
[2021-07-24] MEDS: CARBIDOPA/LEVODOPA 25/100MG TAB PO SCH ×3 (08:25→21:35)
[2021-07-24] MEDS: levETIRAcetam 500 MG TAB PO SCH (08:25)
[2021-07-24] MEDS: UMECLIDINIUM/VILANTEROL 62.5/25MCG 7 PUFFS/INHALER INH SCH (08:25)
[2021-07-24] MEDS: INSULIN GLARGINE SOLOSTAR 100 UNITS/ML 3 ML PEN SC SCH ×2 (08:26→21:37)
[2021-07-24] MEDS: INSULIN ASPART PER UNIT SC SCH ×4 (08:26→21:38)
[2021-07-24] MEDS: SENNA 8.6 MG TAB PO PRN (09:04)
--- NOTE | 2021-07-24 11:32 | Hospitalist Progress Note ---
Date of Service July 24, 2021 Assessment & Plan (1) Shortness of breath: Plan: due to right lower lobe pneumonia. Zosyn, day 5. No sputum for culture. Known ILD. Oxygen has been weaned off. (2) Chest pain: Plan: Patient has longstanding history of intermittent chest discomfort as well as per sistently elevated troponin ongoing for the last several months. Prior concern for myocarditis - viral vs autoimmune/rheum etiology. He has been treated wtih Prednisone as well as colchicine with minimal improvement in chest discomfort. Echo during last hospitalization with preserved EF. He was recently referred to [facility], seen by Cardiology there. Patient had a cardiac MRI performed which was NEGATIVE for infiltrative cardiac findings or myocarditis. Cardiology felt that his chest discomfort is most likely due to his underlying lung pathology and did not strongly feel that patient has myocarditis. Continue telemetry. (3) Gout: Plan: Chronic. Quiescent. Continue Allopurinol (4) Seizure: Plan: No recent seizure activity. Continue Keppra and Topamax (5) Chronic pulmonary aspiration: Plan: Aspiration precautions. Easy to chew diet. (6) Parkinsonism: Plan: Continue Carbidopa-Levodopa. 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 ?RA/Polymyositis/Dermatomyositis. He was on Rutuximab in the past but was not tolerated. Note from 05/2021 from [facility] - Question whether his ILD is truly ILD or if it is from chronic aspiration. Patient follows with Pulmonary. Currently being worked up by Rheumatolgy and Pulmonary. Continue Prednisone (8) Rheumatoid arthritis: Plan: Patient is followed by Rheumatology. Was seen by Rheum recently at [facility] as well. Consultation states that the diagnosis of RA is questionable. Patient does have a strong family history of RA, however, has not had documented synovitis, RF negative and CCP mildly elevated. 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 Pulmonary consult appreciated. Continue Prednisone 10mg po daily (9) Chronic kidney disease, stage 3a: Plan: Near baseline. Monitor intake and output. Serial lab studies. Avoid nephrotoxic agents (10) PAF (paroxysmal atrial fibrillation): Plan: Rate controlled. On anticoagulation for mechanical aortic valve. Continue Coumadin therapy. Serial INR (11) CAD (coronary artery disease): Plan: Patient with history of stent placement to Left main performed in [place] in 2019. Heart cath 05/25/21 at [facility] with widely patent stent, nonobstructive disease to LAD. Patient continues to have persistent chest discomfort - unchanged over the last several months. Dull ache with episodes of sharp pain. Continue current med management. Telemetry. (12) HLD (hyperlipidemia): Plan: Continue Atorvastatin (13) Diabetes: Plan: Type II. ADA diet. Continue basal insulin therapy. 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 Follows with Rheumatology. (15) Diarrhea: Plan: Patient reports 4 days of diarrhea, watery, nonbloody. No report of positive C. difficile toxin. Treated with IVF and electrolyte repletion. (16) Aortic valve replaced: Plan: Mechanical aortic valve in place. Patient on Coumadin. Goal INR of 2.5 - 3.5. Serial labs. (17) Pneumonia: Plan: Right lower lobe involvement. Continue Zosyn, day 5. Sputum culture if sputum is produced. Repeat CXR done July 23 looks better. (18) Hypokalemia: Plan: Corrected with oral potassium replacement. Serial labs (19) Acute respiratory failure with hypoxemia: Plan: Resolved. Oxygen has been weaned off. Continue treatment of underlying pneumonia Plan: Disposition: Probable SNF or rehab placement at discharge. Admission and Anticipated Discharge Date Admission Date: July 20, 2021 Subjective Alert and oriented. He remains on room air. No new problems. Chest x-ray completed July 23 looks better. Review of Systems Review of Systems: Constitutional-no fever or chills ENT-no blurred vision, no double vision, no epistaxis, no sore throat Respiratory-no cough, no wheezing, no shortness of breath Cardiac-no palpitations, no chest pain, no syncope GI-no nausea, vomiting, diarrhea, melena, hematochezia -no urinary retention, no urinary incontinence, no dysuria, no hematuria Musculoskeletal-no joint pain, no muscle tenderness Skin-no bruising, no rashes, no pruritus Neuro-no isolated weakness, no paresthesia, no weakness Psych-no depression, no anxiety Physical Exam Physical Exam: General-alert and oriented x3, no fevers, no chills HEENT-head atraumatic and normocephalic, pupils equal and reactive to light, extraocular muscles intact Neck-no lymphadenopathy or thyromegaly, trachea midline Chest-clear to auscultation percussion. No rales wheezing or rhonchi Cardiac-regular rate and rhythm, normal S1 and S2, no murmurs Abdomen-normal bowel sounds, nontender, no hepatosplenomegaly Extremities-no cyanosis, clubbing, or edema Neuro-cranial nerves II through XII intact, motor and sensory function within normal limits, strength symmetrical , no focal deficits Psych-normal affect, normal mood Results & Data Results & Data ([facility]) Vital Signs (Past 12 Hours) Vital Signs Temp Pulse Resp BP Pulse Ox 07/24/21 10:46 84 18 97 07/24/21 07:32 69 18 98 07/24/21 07:25 36.3 C L 65 16 113/76 95 Laboratory Results 07/24/21 05:37 07/24/21 05:37 PG Care Time/CCT Total # of Minutes Spent Total Time Spent with Patient: Total time spent is greater than 50% in coordination of care (as documented) at patient's floor/unit and/or counseling patient: Coding Level of Care Code 17889 Subseq Hosp Care Lvl 3 Diagnoses Shortness of breath R06.02 Chest pain R07.2 Chest pain type: precordial pain Gout M10.9 Seizure R56.9 Chronic pulmonary aspiration T17.908A Parkinsonism G20 Parkinsonism type: unspecified 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; M35.9 Rheumatoid arthritis M06.9 Rheumatoid arthritis location: unspecified site Rheumatoid factor presence: unspecified presence Chronic kidney disease, stage 3a N18.3 PAF (paroxysmal atrial fibrillation) I48.0 CAD (coronary artery disease) I25.10 Coronary Disease-Associated Artery/Lesion type: [place] artery [place] vs. transplanted heart: [place] heart Associated angina: without angina HLD (hyperlipidemia) E78.2 Hyperlipidemia type: mixed hyperlipidemia Diabetes E11.42; Z79.4 Diabetes mellitus type: type 2 Diabetes mellitus fpc insulin use: with buttermaker use Diabetes mellitus complication status: with neurologic complications Diabetes mellitus complication detail: with polyneuropathy Polymyositis M33.20 Diarrhea R19.7 Diarrhea type: unspecified type Aortic valve replaced Z95.2 Pneumonia J18.9 Hypokalemia E87.6 Acute respiratory failure with hypoxemia J96.01 (1) Chest pain Chest pain type: precordial pain Qualified Code(s): R07.2 - Precordial pain (2) Parkinsonism Parkinsonism type: unspecified Qualified Code(s): G20 - Parkinson's disease (3) Rheumatoid arthritis Rheumatoid arthritis location: unspecified site Rheumatoid factor presence: unspecified presence Qualified Code(s): M06.9 - Rheumatoid arthritis, unspecified (4) CAD (coronary artery disease) Coronary Disease-Associated Artery/Lesion type: [place] artery [place] vs. transplanted heart: [place] heart Associated angina: without angina Qualified Code(s): I25.10 - Atherosclerotic heart disease of [place] coronary artery without angina pectoris (5) HLD (hyperlipidemia) Hyperlipidemia type: mixed hyperlipidemia Qualified Code(s): E78.2 - Mixed hyperlipidemia (6) Diabetes Diabetes mellitus type: type 2 Diabetes mellitus buttermaker insulin use: with fpc use Diabetes mellitus complication status: with neurologic complications Diabetes mellitus complication detail: with polyneuropathy Qualified Code(s): E11.42 - Type 2 diabetes mellitus with diabetic polyneuropathy; Z79.4 - watermelon inspector (current) use of insulin (7) Diarrhea Diarrhea type: unspecified type Qualified Code(s): R19.7 - Diarrhea, unspecified
[2021-07-24] MEDS: allopurinoL 100 MG TAB PO SCH (21:34)
[2021-07-24] MEDS: WARFARIN SOD 5 MG TAB PO SCH (21:34)
[2021-07-24] MEDS: levETIRAcetam 250 MG TAB PO SCH (21:34)
[2021-07-24] MEDS: ATORVASTATIN 40 MG TAB PO SCH (21:34)
[2021-07-24] MEDS: POLYETHYLENE (MIRALAX) 17 GM PACK PO PRN (21:44)
[2021-07-25] MEDS: PIPERACILLIN/TAZOBACTAM 3.375 GM in DEXTROSE 5% 100 ML IV SCH ×2 (05:47→12:31)
[2021-07-25] MEDS: POLYETHYLENE (MIRALAX) 17 GM PACK PO PRN (06:08)
[2021-07-25] MEDS: SENNA 8.6 MG TAB PO PRN (06:36)
[2021-07-25 07:24] LABS: INR 2.7 (0.9-1.1); Prothrombin Time 27.6 Seconds (9.0-12.0)
[2021-07-25] MEDS: ALBUTEROL HFA 8 GM INHALER INH SCH ×4 (07:25→19:09)
[2021-07-25] MEDS: CARBIDOPA/LEVODOPA 25/100MG TAB PO SCH ×3 (08:34→21:35)
[2021-07-25] MEDS: DICLOFENAC SOD 1% GEL 100 GM TUBE EXT SCH ×4 (08:35→21:39)
[2021-07-25] MEDS: FEXOFENADINE HCL 180 MG TAB PO SCH (08:36)
[2021-07-25] MEDS: FINASTERIDE 5 MG TAB PO SCH (08:36)
[2021-07-25] MEDS: FUROSEMIDE 20 MG TAB PO SCH (08:37)
[2021-07-25] MEDS: GABAPENTIN 300 MG CAP PO SCH ×2 (08:37→21:36)
[2021-07-25] MEDS: FLUTICASONE FUROATE 100MCG 14 PUFFS/INHALER INH SCH (08:37)
[2021-07-25] MEDS: levETIRAcetam 500 MG TAB PO SCH (08:38)
[2021-07-25] MEDS: predniSONE 10 MG TABLET PO SCH (08:39)
[2021-07-25] MEDS: TOPIRAMATE 100 MG TAB PO SCH ×2 (08:39→21:37)
[2021-07-25] MEDS: POTASSIUM CHLORIDE 10 MEQ TABCR PO SCH ×2 (08:39→17:24)
[2021-07-25] MEDS: UMECLIDINIUM/VILANTEROL 62.5/25MCG 7 PUFFS/INHALER INH SCH (08:40)
[2021-07-25] MEDS: INSULIN ASPART PER UNIT SC SCH ×5 (09:05→23:54)
[2021-07-25] MEDS: INSULIN GLARGINE SOLOSTAR 100 UNITS/ML 3 ML PEN SC SCH (09:07)
[2021-07-25] MEDS: oxyCODONE HCL IR 5 MG TAB (IMMEDIATE RELEASE) PO PRN ×2 (11:07→19:38)
--- NOTE | 2021-07-25 17:04 | Hospitalist Progress Note ---
Date of Service July 25, 2021 Assessment & Plan (1) Shortness of breath: Plan: due to right lower lobe pneumonia. Zosyn, day 6. No sputum for culture. Known ILD. Oxygen has been weaned off. Patient is improving. Ready for discharge. Awaiting placement. Will transition antibiotics to augmentin. (2) Chest pain: Plan: Patient has longstanding history of intermittent chest discomfort as well as persistently elevated troponin ongoing for the last several months. Prior concern for myocarditis - viral vs autoimmune/rheum etiology. He has been treated wt Prednisone as well as colchicine with minimal improvement in chest discomfort. Echo during last hospitalization with preserved EF. He was recently referred to [facility], seen by Cardiology there. Patient had a cardiac MRI performed which was NEGATIVE for infiltrative cardiac findings or myocarditis. Cardiology felt that his chest discomfort is most likely due to his underlying lung pathology and did not strongly feel that patient has myocarditis. Continue telemetry. (3) Gout: Plan: Chronic. Quiescent. Continue Allopurinol (4) Seizure: Plan: No recent seizure activity. Continue Keppra and Topamax (5) Chronic pulmonary aspiration: Plan: Aspiration precautions. Easy to chew diet. (6) Parkinsonism: Plan: Continue Carbidopa-Levodopa. 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 ?RA/Polymyositis/Dermatomyositis. He was on Rutuximab in the past but was not tolerated. Note from 05/2021 from [facility] - Question whether his ILD is truly ILD or if it is from chronic aspiration. Patient follows with Pulmonary. Currently being worked up by Rheumatolgy and Pulmonary. Continue Prednisone (8) Rheumatoid arthritis: Plan: Patient is followed by Rheumatology. Was seen by Rheum recently at [facility] as well. Consultation states that the diagnosis of RA is questionable. Patient does have a strong family history of RA, however, has not had documented synovitis, RF negative and CCP mildly elevated. 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 Pulmonary consult appreciated. Continue Prednisone 10mg po daily (9) Chronic kidney disease, stage 3a: Plan: Near baseline. Monitor intake and output. Serial lab studies. Avoid nephrotoxic agents (10) PAF (paroxysmal atrial fibrillation): Plan: Rate controlled. On anticoagulation for mechanical aortic valve. Continue Coumadin therapy. Serial INR (11) CAD (coronary artery disease): Plan: Patient with history of stent placement to Left main performed in [place] in 2019. Heart cath 05/25/21 at [facility] with widely patent stent, nonobstructive disease to LAD. Patient continues to have persistent chest discomfort - unchanged over the last several months. Dull ache with episodes of sharp pain. Continue current med management. Telemetry. (12) HLD (hyperlipidemia): Plan: Continue Atorvastatin (13) Diabetes: Plan: Type II. ADA diet. Continue basal insulin therapy. 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 Follows with Rheumatology. (15) Diarrhea: Plan: Patient reports 4 days of diarrhea, watery, nonbloody. No report of positive C. difficile toxin. Treated with IVF and electrolyte repletion. (16) Aortic valve replaced: Plan: Mechanical aortic valve in place. Patient on Coumadin. Goal INR of 2.5 - 3.5. Serial labs. (17) Pneumonia: Plan: Right lower lobe involvement. Continue Zosyn, day 5. Sputum culture if sputum is produced. Repeat CXR done July 23 looks better. (18) Hypokalemia: Plan: Corrected with oral potassium replacement. Serial labs (19) Acute respiratory failure with hypoxemia: Plan: Resolved. Oxygen has been weaned off. Continue treatment of underlying pneumonia Plan: Disposition: Probable SNF or rehab placement at discharge. Admission and Anticipated Discharge Date Admission Date: July 20, 2021 Subjective Patient reports no new symptoms. Review of Systems Review of Systems: All systems reviewed & are unremarkable except as noted in HPI & below Physical Exam Physical Exam: General-alert and oriented x3, no fevers, no chills HEENT-head atraumatic and normocephalic, pupils equal and reactive to light, extraocular muscles intact Neck-no lymphadenopathy or thyromegaly, trachea midline Chest-clear to auscultation percussion. No rales wheezing or rhonchi Cardiac-regular rate and rhythm, normal S1 and S2, no murmurs Abdomen-normal bowel sounds, nontender, no hepatosplenomegaly Extremities-no cyanosis, clubbing, or edema Neuro-cranial nerves II through XII intact, motor and sensory function within normal limits, strength symmetrical , no focal deficits Psych-normal affect, normal mood Results & Data Results & Data ([facility]) Vital Signs (Past 12 Hours) Vital Signs Temp Pulse Pulse Pulse Resp BP Pulse Ox 07/25/21 15:39 36.3 C L 89 20 124/75 98 07/25/21 15:15 80 18 94 07/25/21 11:12 78 18 96 07/25/21 07:51 36.6 C 74 16 136/76 96 07/25/21 07:25 68 16 95 PG Care Time/CCT Total # of Minutes Spent Total Time Spent with Patient: Total time spent is greater than 50% in coordination of care (as documented) at patient's floor/unit and/or counseling patient: Coding Level of Care Code 59505 Subseq Hosp Care Lvl 3 Diagnoses Shortness of breath R06.02 Chest pain R07.2 Chest pain type: precordial pain Gout M10.9 Seizure R56.9 Chronic pulmonary aspiration T17.908A Parkinsonism G20 Parkinsonism type: unspecified 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; M35.9 Rheumatoid arthritis M06.9 Rheumatoid arthritis location: unspecified site Rheumatoid factor presence: unspecified presence Chronic kidney disease, stage 3a N18.3 PAF (paroxysmal atrial fibrillation) I48.0 CAD (coronary artery disease) I25.10 Coronary Disease-Associated Artery/Lesion type: [place] artery [place] vs. transplanted heart: [place] heart Associated angina: without angina HLD (hyperlipidemia) E78.2 Hyperlipidemia type: mixed hyperlipidemia Diabetes E11.42; Z79.4 Diabetes mellitus type: type 2 Diabetes mellitus [facility] insulin use: with [facility] use Diabetes mellitus complication status: with neurologic complications Diabetes mellitus complication detail: with polyneuropathy Polymyositis M33.20 Diarrhea R19.7 Diarrhea type: unspecified type Aortic valve replaced Z95.2 Pneumonia J18.9 Hypokalemia E87.6 Acute respiratory failure with hypoxemia J96.01 Time Spent (min) 35 Comment chart review and first visit (1) Chest pain Chest pain type: precordial pain Qualified Code(s): R07.2 - Precordial pain (2) Parkinsonism Parkinsonism type: unspecified Qualified Code(s): G20 - Parkinson's disease (3) Rheumatoid arthritis Rheumatoid arthritis location: unspecified site Rheumatoid factor presence: unspecified presence Qualified Code(s): M06.9 - Rheumatoid arthritis, unspecified (4) CAD (coronary artery disease) Coronary Disease-Associated Artery/Lesion type: [place] artery [place] vs. transplanted heart: [place] heart Associated angina: without angina Qualified Code(s): I25.10 - Atherosclerotic heart disease of [place] coronary artery without angina pectoris (5) HLD (hyperlipidemia) Hyperlipidemia type: mixed hyperlipidemia Qualified Code(s): E78.2 - Mixed hyperlipidemia (6) Diabetes Diabetes mellitus type: type 2 Diabetes mellitus [facility] insulin use: with termite renewal inspector use Diabetes mellitus complication status: with neurologic complications Diabetes mellitus complication detail: with polyneuropathy Qualified Code(s): E11.42 - Type 2 diabetes mellitus with diabetic polyneuropathy; Z79.4 - [facility] (current) use of insulin (7) Diarrhea Diarrhea type: unspecified type Qualified Code(s): R19.7 - Diarrhea, unspecified
[2021-07-25] MEDS ORDERED: PHARMACY GLYCEMIC MGMT CONSULT PRN (17:06)
--- NOTE | 2021-07-25 20:29 | Pharmacy Report ---
Pharmacy Glycemic Short Note 2 - Date of Service July 25, 2021 - Glycemic Short BSG Results (Last 24 hours): 07/24/21 07/25/21 07/25/21 21:20 08:08 12:08 POC Glucose 247 H 153 H 238 H 07/25/21 16:40 POC Glucose 321 H* OUTPATIENT ANTIDIABETIC REGIMEN: * NPH 40 units SC AM (with prednisone) * Novolog ACHS * Goal Range: 120-160 mg/dL * CF: 20 * CR: 4 * HbA1c 6.9% (07/04/21) ASSESSMENT: * 76 yo admitted on 07/20/21 secondary to SOB and hypoxia. Pharmacy was consulted this afternoon (07/25/21) to assist with inpatient glycemic management. Patient is ordered a type 2 diabetic diet. Abx switched to Augmentin today. Remains on prednisone 10 mg daily (same as home dose). * Since admission, patient has been receiving 7 units of Lantus BID with Novolog goal range of 100-150 mg/dL and CF 20 with CR 7. BSGs have been ranging 139- 321 mg/dL over the last 72 hours. * Patient's experiencing post-prandial hyperglycemia throughout the day secondary to steroid use. * Will tighten correction factor and carb ratio to reflect weight/stress of 3 given hyperglycemia. Adding overnight checks for first evening to help correct for steroid-induced hyperglycemia. * Discontinue Lantus. Did received 7 units this AM. * Start NPH 40 units daily with prednisone every morning. PLAN FOR INPATIENT GLYCEMIC CONTROL: * Basal insulin * D/c Lantus * NPH 40 units SC AM - give with Prednisone (hold if prednisone d/c or held and call pharmacy) * Bolus insulin * NovoLog per scale ACHS or Q6hrs while NPO * Goal Range: Low 110 mg/dL - High 140 mg/dL * Correction Factor: 15 mg/dL/unit * Nutritional / Prandial insulin per carb ratio of 1 unit per 5 grams CHO consumed
[2021-07-25] MEDS: allopurinoL 100 MG TAB PO SCH (21:35)
[2021-07-25] MEDS: ATORVASTATIN 40 MG TAB PO SCH (21:35)
[2021-07-25] MEDS: levETIRAcetam 250 MG TAB PO SCH (21:36)
[2021-07-25] MEDS: WARFARIN SOD 5 MG TAB PO SCH (21:37)
[2021-07-26] MEDS: INSULIN ASPART PER UNIT SC SCH ×5 (04:21→21:25)
[2021-07-26 06:28] LABS: INR 2.5 (0.9-1.1); Prothrombin Time 25.7 Seconds (9.0-12.0)
[2021-07-26] MEDS: ALBUTEROL HFA 8 GM INHALER INH SCH ×4 (07:07→19:51)
--- NOTE | 2021-07-26 08:25 | Pharmacy Report ---
Pharmacy Glycemic Short Note 2 - Date of Service July 26, 2021 - Glycemic Short BSG Results (Last 24 hours): 07/25/21 07/25/21 07/25/21 12:08 16:40 21:04 POC Glucose 238 H 321 H* 285 H 07/25/21 07/26/21 07/26/21 23:52 04:16 08:05 POC Glucose 186 H 169 H 159 H OUTPATIENT ANTIDIABETIC REGIMEN: * Lantus 20 units bid, NPH 10 units daily with prednisone 10 mg daily (typically he adjusts based upon steroid dosing), Novolog SSI * Patient reports discontinuation of trulicity due to cost patient confirmed insulin 07/26, had been listed incorrectly on med list * HbA1c 6.9% (07/04/21) ASSESSMENT: * Patient received total of 39 units of insulin yesterday, of which only 7 units were basal * Fasting BSG 159 mg/dL, plan to resume previous basal 7 units BID (15 units daily) as previous fasting BSGs appropriate on this admission with this dosing * Appears BSGs rising throughout the day with prednisone, therefore will add a small dose NPH in AM * CF/CR tightened to 15/5 PLAN FOR INPATIENT GLYCEMIC CONTROL: * Basal insulin * Lantus 15 units daily * NPH 10 units daily with prednisone 10 mg daily * Bolus insulin * NovoLog per scale ACHS or Q6hrs while NPO * Goal Range: Low 110 mg/dL - High 140 mg/dL * Correction Factor: 15 mg/dL/unit * Nutritional / Prandial insulin per carb ratio of 1 unit per 5 grams CHO consumed
[2021-07-26] MEDS: AMOXICILLIN/CLAVULANATE 875 MG TAB PO SCH ×2 (08:38→17:09)
[2021-07-26] MEDS: DICLOFENAC SOD 1% GEL 100 GM TUBE EXT SCH ×4 (08:39→21:34)
[2021-07-26] MEDS: CARBIDOPA/LEVODOPA 25/100MG TAB PO SCH ×3 (08:39→21:36)
[2021-07-26] MEDS: FUROSEMIDE 20 MG TAB PO SCH (08:40)
[2021-07-26] MEDS: FLUTICASONE FUROATE 100MCG 14 PUFFS/INHALER INH SCH (08:40)
[2021-07-26] MEDS: FEXOFENADINE HCL 180 MG TAB PO SCH (08:40)
[2021-07-26] MEDS: FINASTERIDE 5 MG TAB PO SCH (08:40)
[2021-07-26] MEDS: POTASSIUM CHLORIDE 10 MEQ TABCR PO SCH ×2 (08:42→17:09)
[2021-07-26] MEDS: levETIRAcetam 500 MG TAB PO SCH (08:42)
[2021-07-26] MEDS: predniSONE 10 MG TABLET PO SCH (08:43)
[2021-07-26] MEDS: TOPIRAMATE 100 MG TAB PO SCH ×2 (08:43→21:32)
[2021-07-26] MEDS: UMECLIDINIUM/VILANTEROL 62.5/25MCG 7 PUFFS/INHALER INH SCH (08:43)
[2021-07-26] MEDS: oxyCODONE HCL IR 5 MG TAB (IMMEDIATE RELEASE) PO PRN ×2 (08:44→21:30)
[2021-07-26] MEDS ORDERED: INSULIN GLARGINE SOLOSTAR 100 UNITS/ML 3 ML PEN SC SCH (09:00)
[2021-07-26] MEDS ORDERED: INSULIN HUMAN NPH SC SCH (09:00)
[2021-07-26] MEDS: GABAPENTIN 300 MG CAP PO SCH ×2 (09:23→21:34)
[2021-07-26] MEDS: INSULIN HUMAN NPH SC SCH (09:23)
[2021-07-26] MEDS: ACETAMINOPHEN 325 MG TAB PO PRN ×3 (10:48→21:39)
--- NOTE | 2021-07-26 21:02 | Hospitalist Progress Note ---
Date of Service July 26, 2021 Assessment & Plan (1) Shortness of breath: Plan: due to right lower lobe pneumonia. Zosyn, day 7. No sputum for culture. Known ILD. Oxygen has been weaned off. Patient is improving. Ready for discharge. Awaiting placement. Will transition antibiotics to augmentin. (2) Chest pain: Plan: Patient has longstanding history of intermittent chest discomfort as well as persistently elevated troponin ongoing for the last several months. Prior concern for myocarditis - viral vs autoimmune/rheum etiology. He has been treated wt Prednisone as well as colchicine with minimal improvement in chest discomfort. Echo during last hospitalization with preserved EF. He was recently referred to [facility], seen by Cardiology there. Patient had a cardiac MRI performed which was NEGATIVE for infiltrative cardiac findings or myocarditis. Cardiology felt that his chest discomfort is most likely due to his underlying lung pathology and did not strongly feel that patient has myocarditis. Continue telemetry. (3) Gout: Plan: Chronic. Quiescent. Continue Allopurinol (4) Seizure: Plan: No recent seizure activity. Continue Keppra and Topamax (5) Chronic pulmonary aspiration: Plan: Aspiration precautions. Easy to chew diet. (6) Parkinsonism: Plan: Continue Carbidopa-Levodopa. 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 ?RA/Polymyositis/Dermatomyositis. He was on Rutuximab in the past but was not tolerated. Note from 05/2021 from [facility] - Question whether his ILD is truly ILD or if it is from chronic aspiration. Patient follows with Pulmonary. Currently being worked up by Rheumatolgy and Pulmonary. Continue Prednisone (8) Rheumatoid arthritis: Plan: Patient is followed by Rheumatology. Was seen by Rheum recently at [facility] as well. Consultation states that the diagnosis of RA is questionable. Patient does have a strong family history of RA, however, has not had documented synovitis, RF negative and CCP mildly elevated. 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 Pulmonary consult appreciated. Continue Prednisone 10mg po daily (9) Chronic kidney disease, stage 3a: Plan: Near baseline. Monitor intake and output. Serial lab studies. Avoid nephrotoxic agents (10) PAF (paroxysmal atrial fibrillation): Plan: Rate controlled. On anticoagulation for mechanical aortic valve. Continue Coumadin therapy. Serial INR (11) CAD (coronary artery disease): Plan: Patient with history of stent placement to Left main performed in [place] in 2019. Heart cath 05/25/21 at [facility] with widely patent stent, nonobstructive disease to LAD. Patient continues to have persistent chest discomfort - unchanged over the last several months. Dull ache with episodes of sharp pain. Continue current med management. Telemetry. (12) HLD (hyperlipidemia): Plan: Continue Atorvastatin (13) Diabetes: Plan: Type II. ADA diet. Continue basal insulin therapy. 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 Follows with Rheumatology. (15) Diarrhea: Plan: Patient reports 4 days of diarrhea, watery, nonbloody. No report of positive C. difficile toxin. Treated with IVF and electrolyte repletion. (16) Aortic valve replaced: Plan: Mechanical aortic valve in place. Patient on Coumadin. Goal INR of 2.5 - 3.5. Serial labs. (17) Pneumonia: Plan: Right lower lobe involvement. Continue Zosyn, day 5. Sputum culture if sputum is produced. Repeat CXR done July 23 looks better. (18) Hypokalemia: Plan: Corrected with oral potassium replacement. Serial labs (19) Acute respiratory failure with hypoxemia: Plan: Resolved. Oxygen has been weaned off. Continue treatment of underlying pneumonia Plan: Disposition: Probable SNF or rehab placement at discharge. Admission and Anticipated Discharge Date Admission Date: July 20, 2021 Subjective Patient reports having left sided chest pain. Pain is similar to his previous episodes. Review of Systems Review of Systems: All systems reviewed & are unremarkable except as noted in HPI & below Physical Exam Physical Exam: General-alert and oriented x3, no fevers, no chills HEENT-head atraumatic and normocephalic, pupils equal and reactive to light, extraocular muscles intact Neck-no lymphadenopathy or thyromegaly, trachea midline Chest-clear to auscultation percussion. No rales wheezing or rhonchi Cardiac-regular rate and rhythm, normal S1 and S2, no murmurs Abdomen-normal bowel sounds, nontender, no hepatosplenomegaly Extremities-no cyanosis, clubbing, or edema Neuro-cranial nerves II through XII intact, motor and sensory function within normal limits, strength symmetrical , no focal deficits Psych-normal affect, normal mood Results & Data Results & Data ([facility]) Vital Signs (Past 12 Hours) Vital Signs Temp Pulse Pulse Resp BP BP Pulse Ox 07/26/21 19:52 98 H 16 96 07/26/21 15:21 80 18 96 07/26/21 15:02 36.4 C L 80 16 100/65 96 07/26/21 10:57 82 18 95 07/26/21 10:20 74 136/81 PG Care Time/CCT Total # of Minutes Spent Total Time Spent with Patient: Total time spent is greater than 50% in coordination of care (as documented) at patient's floor/unit and/or counseling patient: Coding Level of Care Code 15148 Subseq Hosp Care Lvl 2 Diagnoses Shortness of breath R06.02 Chest pain R07.2 Chest pain type: precordial pain Gout M10.9 Seizure R56.9 Chronic pulmonary aspiration T17.908A Parkinsonism G20 Parkinsonism type: unspecified 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; M35.9 Rheumatoid arthritis M06.9 Rheumatoid arthritis location: unspecified site Rheumatoid factor presence: unspecified presence Chronic kidney disease, stage 3a N18.3 PAF (paroxysmal atrial fibrillation) I48.0 CAD (coronary artery disease) I25.10 Associated angina: without angina Coronary Disease-Associated Artery/Lesion type: [place] artery [place] vs. 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 Diabetes mellitus type: type 2 Polymyositis M33.20 Diarrhea R19.7 Diarrhea type: unspecified type Aortic valve replaced Z95.2 Pneumonia J18.9 Hypokalemia E87.6 Acute respiratory failure with hypoxemia J96.01 (1) Rheumatoid arthritis Rheumatoid arthritis location: unspecified site Rheumatoid factor presence: unspecified presence Qualified Code(s): M06.9 - Rheumatoid arthritis, unspecified (2) Diabetes Diabetes mellitus complication detail: with polyneuropathy Diabetes mellitus complication status: with neurologic complications 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 transplanted heart: [place] heart Qualified Code(s): I25.10 - Atherosclerotic heart disease of [place] coronary artery without angina pectoris (4) Diarrhea Diarrhea type: unspecified type Qualified Code(s): R19.7 - Diarrhea, unspecified (5) HLD (hyperlipidemia) Hyperlipidemia type: mixed hyperlipidemia Qualified Code(s): E78.2 - Mixed hyperlipidemia (6) Parkinsonism Parkinsonism type: unspecified Qualified Code(s): G20 - Parkinson's disease (7) Chest pain Chest pain type: precordial pain Qualified Code(s): R07.2 - Precordial pain
[2021-07-26] MEDS: WARFARIN SOD 5 MG TAB PO SCH (21:31)
[2021-07-26] MEDS: ATORVASTATIN 40 MG TAB PO SCH (21:33)
[2021-07-26] MEDS: levETIRAcetam 250 MG TAB PO SCH (21:33)
[2021-07-26] MEDS: allopurinoL 100 MG TAB PO SCH (21:33)
[2021-07-27] MEDS: ACETAMINOPHEN 325 MG TAB PO PRN ×2 (05:18→13:31)
[2021-07-27 06:51] LABS: Hematocrit (blood only) 34.3 % (42-52); Hemoglobin 11.1 g/dL (14.0-18.0); Mean Corpuscular Hemoglobin 27.6 pg (25-34); Mean Corpuscular Hgb Conc 32.4 g/dL (32-36); Mean Corpuscular Volume 85.3 fL (80-100); Mean Platelet Volume 9.5 fL (7.4-10.4); Platelet Count 136 K/uL (130-400); RDW Coefficient of Variation 18.7 % (11.5-14.5); RDW Standard Deviation 58.8 fL (36.4-46.3); Red Blood Count 4.02 M/uL (4.7-6.1); White Blood Count 3.53 K/uL (4.8-10.8)
[2021-07-27] MEDS: ALBUTEROL HFA 8 GM INHALER INH SCH ×4 (07:17→19:29)
[2021-07-27 07:24] LABS: Troponin I 35.71 ng/ml (0-0.04)
[2021-07-27 07:26] LABS: BUN Creatinine Ratio 25.9 (10-20); Calcium 8.6 mg/dl (8.5-10.1); Creatinine Clr Calc Pharmacy 75.4 ml/min; Est GFR (African American) 76.9 ml/min; Est GFR (Non-African American) 66.3 ml/min; Potassium 3.7 mmol/L (3.5-5.1)
[2021-07-27] MEDS: levETIRAcetam 500 MG TAB PO SCH (08:05)
[2021-07-27] MEDS: predniSONE 10 MG TABLET PO SCH (08:05)
[2021-07-27] MEDS: oxyCODONE HCL IR 5 MG TAB (IMMEDIATE RELEASE) PO PRN ×3 (08:05→21:38)
[2021-07-27] MEDS: CARBIDOPA/LEVODOPA 25/100MG TAB PO SCH ×3 (08:06→21:40)
[2021-07-27] MEDS: GABAPENTIN 300 MG CAP PO SCH ×2 (08:06→21:40)
[2021-07-27] MEDS: FINASTERIDE 5 MG TAB PO SCH (08:06)
[2021-07-27] MEDS: FUROSEMIDE 20 MG TAB PO SCH (08:06)
[2021-07-27] MEDS: FEXOFENADINE HCL 180 MG TAB PO SCH (08:06)
[2021-07-27] MEDS: TOPIRAMATE 100 MG TAB PO SCH ×2 (08:06→21:39)
[2021-07-27] MEDS: AMOXICILLIN/CLAVULANATE 875 MG TAB PO SCH ×2 (08:07→16:34)
[2021-07-27] MEDS: POTASSIUM CHLORIDE 10 MEQ TABCR PO SCH ×2 (08:07→16:34)
[2021-07-27] MEDS: UMECLIDINIUM/VILANTEROL 62.5/25MCG 7 PUFFS/INHALER INH SCH (08:07)
[2021-07-27] MEDS: DICLOFENAC SOD 1% GEL 100 GM TUBE EXT SCH ×4 (08:08→21:41)
[2021-07-27] MEDS: FLUTICASONE FUROATE 100MCG 14 PUFFS/INHALER INH SCH (08:08)
[2021-07-27] MEDS: INSULIN HUMAN NPH SC SCH (08:55)
[2021-07-27] MEDS ORDERED: INSULIN GLARGINE SOLOSTAR 100 UNITS/ML 3 ML PEN SC SCH ×2 (09:00→21:00)
[2021-07-27] MEDS: INSULIN ASPART PER UNIT SC SCH ×4 (09:00→21:49)
[2021-07-27] MEDS: POLYETHYLENE (MIRALAX) 17 GM PACK PO PRN ×2 (09:01→21:41)
--- NOTE | 2021-07-27 13:37 | Pharmacy Report ---
Pharmacy Glycemic Short Note 2 - Date of Service July 27, 2021 - Glycemic Short BSG Results (Last 24 hours): 07/26/21 07/26/21 07/27/21 16:48 21:00 05:46 Glucose 147 H POC Glucose 197 H 212 H 07/27/21 07/27/21 08:10 12:11 Glucose POC Glucose 170 H 263 H OUTPATIENT ANTIDIABETIC REGIMEN: * Lantus 20 units bid, NPH 10 units daily with prednisone 10 mg daily (typically he adjusts based upon steroid dosing), Novolog SSI * Patient reports discontinuation of trulicity due to cost patient confirmed insulin 07/26, had been listed incorrectly on med list * HbA1c 6.9% (07/04/21) ASSESSMENT: 07/27/21 * Patient's BSGs yesterday were [phone] mg/dL. Fasting today is 170 mg/dL. * Patient requests Lantus to be BID dosing. Will split Lantus- Initially went with 7 units BID. However, lunch BSG significantly elevated and fasting was trending up so increase to 10 units BID starting tonight. Patient does typically require 20 units/day inhouse. * Continue NPH as appears effective plus is home dose. * Tighten Novolog slightly as BSGs trended upwards. BACKGROUND * Patient received total of 39 units of insulin yesterday, of which only 7 units were basal * Fasting BSG 159 mg/dL, plan to resume previous basal 7 units BID (15 units daily) as previous fasting BSGs appropriate on this admission with this dosing * Appears BSGs rising throughout the day with prednisone, therefore will add a small dose NPH in AM * CF/CR tightened to 15/5 PLAN FOR INPATIENT GLYCEMIC CONTROL: * Basal insulin * Lantus 10 units BID * NPH 10 units daily with prednisone 10 mg daily * Bolus insulin * NovoLog per scale ACHS or Q6hrs while NPO * Goal Range: Low 110 mg/dL - High 140 mg/dL * Correction Factor: 15 mg/dL/unit * Nutritional / Prandial insulin per carb ratio of 1 unit per 4 grams CHO consumed
--- NOTE | 2021-07-27 17:46 | Hospitalist Progress Note ---
Date of Service July 27, 2021 Assessment & Plan (1) Shortness of breath: Plan: due to right lower lobe pneumonia. Zosyn. No sputum for culture. Known ILD. Oxygen has been weaned off. Patient is improving. Ready for discharge. Awaiting placement. Now on antibiotics to augmentin. (2) Chest pain: Plan: Patient has longstanding history of intermittent chest discomfort as well as persistently elevated troponin ongoing for the last several months. Prior concern for myocarditis - viral vs autoimmune/rheum etiology. He has been treated wt Prednisone as well as colchicine with minimal improvement in chest discomfort. Echo during last hospitalization with preserved EF. He was recently referred to [facility], seen by Cardiology there. Patient had a cardiac MRI performed which was NEGATIVE for infiltrative cardiac findings or myocarditis. Cardiology felt that his chest discomfort is most likely due to his underlying lung pathology and did not strongly feel that patient has myocarditis. (3) Gout: Plan: Chronic. Quiescent. Continue Allopurinol (4) Seizure: Plan: No recent seizure activity. Continue Keppra and Topamax (5) Chronic pulmonary aspiration: Plan: Aspiration precautions. Easy to chew diet. (6) Parkinsonism: Plan: Continue Carbidopa-Levodopa. 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 ?RA/Polymyositis/Dermatomyositis. He was on Rutuximab in the past but was not tolerated. Note from 05/2021 from [facility] - Question whether his ILD is truly ILD or if it is from chronic aspiration. Patient follows with Pulmonary. Currently being worked up by Rheumatolgy and Pulmonary. Continue Prednisone (8) Rheumatoid arthritis: Plan: Patient is followed by Rheumatology. Was seen by Rheum recently at [facility] as well. Consultation states that the diagnosis of RA is questionable. Patient does have a strong family history of RA, however, has not had documented synovitis, RF negative and CCP mildly elevated. 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 Pulmonary consult appreciated. Continue Prednisone 10mg po daily (9) Chronic kidney disease, stage 3a: Plan: Near baseline. Monitor intake and output. Serial lab studies. Avoid nephrotoxic agents (10) PAF (paroxysmal atrial fibrillation): Plan: Rate controlled. On anticoagulation for mechanical aortic valve. Continue Coumadin therapy. Serial INR (11) CAD (coronary artery disease): Plan: Patient with history of stent placement to Left main performed in [place] in 2019. Heart cath 05/25/21 at [facility] with widely patent stent, nonobstructive disease to LAD. Patient continues to have persistent chest discomfort - unchanged over the last several months. Dull ache with episodes of sharp pain. Continue current med management. Telemetry. (12) HLD (hyperlipidemia): Plan: Continue Atorvastatin (13) Diabetes: Plan: Type II. ADA diet. Continue basal insulin therapy. 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 Follows with Rheumatology. (15) Diarrhea: Plan: Patient reports 4 days of diarrhea, watery, nonbloody. No report of positive C. difficile toxin. Treated with IVF and electrolyte repletion. (16) Aortic valve replaced: Plan: Mechanical aortic valve in place. Patient on Coumadin. Goal INR of 2.5 - 3.5. Serial labs. (17) Pneumonia: Plan: Right lower lobe involvement. Continue Zosyn. Sputum culture if sputum is produced. Repeat CXR done July 23 looks better. (18) Hypokalemia: Plan: Corrected with oral potassium replacement. Serial labs (19) Acute respiratory failure with hypoxemia: Plan: Resolved. Oxygen has been weaned off. Continue treatment of underlying pn eumonia Plan: Disposition: Probable SNF or rehab placement at discharge. Admission and Anticipated Discharge Date Admission Date: July 20, 2021 Subjective Patient reports no new symptoms. Review of Systems Review of Systems: All systems reviewed & are unremarkable except as noted in HPI & below Physical Exam Physical Exam: General-alert and oriented x3, no fevers, no chills HEENT-head atraumatic and normocephalic, pupils equal and reactive to light, extraocular muscles intact Neck-no lymphadenopathy or thyromegaly, trachea midline Chest-clear to auscultation percussion. No rales wheezing or rhonchi Cardiac-regular rate and rhythm, normal S1 and S2, no murmurs Abdomen-normal bowel sounds, nontender, no hepatosplenomegaly Extremities-no cyanosis, clubbing, or edema Neuro-cranial nerves II through XII intact, motor and sensory function within normal limits, strength symmetrical , no focal deficits Psych-normal affect, normal mood Results & Data Results & Data ([facility]) Vital Signs (Past 12 Hours) Vital Signs Temp Pulse Pulse Pulse Resp BP Pulse Ox 07/27/21 15:17 80 18 95 07/27/21 15:02 36.7 C 78 18 117/72 97 07/27/21 11:07 85 18 95 07/27/21 07:57 36.4 C L 67 16 148/79 H 100 07/27/21 07:17 65 20 99 PG Care Time/CCT Total # of Minutes Spent Total Time Spent with Patient: Total time spent is greater than 50% in coordination of care (as documented) at patient's floor/unit and/or counseling patient: Coding Level of Care Code 53001 Subseq Hosp Care Lvl 2 Diagnoses Shortness of breath R06.02 Chest pain R07.2 Chest pain type: precordial pain Gout M10.9 Seizure R56.9 Chronic pulmonary aspiration T17.908A Parkinsonism G20 Parkinsonism type: unspecified 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; M35.9 Rheumatoid arthritis M06.9 Rheumatoid arthritis location: unspecified site Rheumatoid factor presence: unspecified presence Chronic kidney disease, stage 3a N18.3 PAF (paroxysmal atrial fibrillation) I48.0 CAD (coronary artery disease) I25.10 Coronary Disease-Associated Artery/Lesion type: [place] artery [place] vs. transplanted heart: [place] heart Associated angina: without angina HLD (hyperlipidemia) E78.2 Hyperlipidemia type: mixed hyperlipidemia Diabetes E11.42; Z79.4 Diabetes mellitus type: type 2 Diabetes mellitus usp insulin use: with usp use Diabetes mellitus complication status: with neurologic complications Diabetes mellitus complication detail: with polyneuropathy Polymyositis M33.20 Diarrhea R19.7 Diarrhea type: unspecified type Aortic valve replaced Z95.2 Pneumonia J18.9 Hypokalemia E87.6 Acute respiratory failure with hypoxemia J96.01 (1) Chest pain Chest pain type: precordial pain Qualified Code(s): R07.2 - Precordial pain (2) Parkinsonism Parkinsonism type: unspecified Qualified Code(s): G20 - Parkinson's disease (3) Rheumatoid arthritis Rheumatoid arthritis location: unspecified site Rheumatoid factor presence: unspecified presence Qualified Code(s): M06.9 - Rheumatoid arthritis, unspecified (4) CAD (coronary artery disease) Coronary Disease-Associated Artery/Lesion type: [place] artery [place] vs. 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
[2021-07-27] MEDS ORDERED: diphenhydrAMINE 50 MG/ML VIAL IV ONE (18:29)
[2021-07-27] MEDS ORDERED: PROCHLORPERAZINE 10 MG in SYRINGE 8 ML IV ONE (18:45)
[2021-07-27] MEDS: levETIRAcetam 250 MG TAB PO SCH (21:39)
[2021-07-27] MEDS: ATORVASTATIN 40 MG TAB PO SCH (21:40)
[2021-07-27] MEDS: allopurinoL 100 MG TAB PO SCH (21:40)
[2021-07-27] MEDS: WARFARIN SOD 5 MG TAB PO SCH (21:41)
[2021-07-28] MEDS: ACETAMINOPHEN 325 MG TAB PO PRN (04:51)
[2021-07-28 06:25] LABS: Hematocrit (blood only) 37.8 % (42-52); Hemoglobin 11.7 g/dL (14.0-18.0); Mean Corpuscular Volume 87.1 fL (80-100); Mean Platelet Volume 9.4 fL (7.4-10.4); Platelet Count 147 K/uL (130-400); RDW Coefficient of Variation 18.7 % (11.5-14.5); RDW Standard Deviation 59.9 fL (36.4-46.3); Red Blood Count 4.34 M/uL (4.7-6.1)
[2021-07-28 06:53] LABS: Calcium 8.7 mg/dl (8.5-10.1); Creatinine Clr Calc Pharmacy 70.2 ml/min; Est GFR (African American) 70.5 ml/min; Est GFR (Non-African American) 60.8 ml/min; Potassium 3.8 mmol/L (3.5-5.1)
[2021-07-28] MEDS: ALBUTEROL HFA 8 GM INHALER INH SCH ×2 (07:34→11:00)
[2021-07-28] MEDS: AMOXICILLIN/CLAVULANATE 875 MG TAB PO SCH (08:30)
[2021-07-28] MEDS: CARBIDOPA/LEVODOPA 25/100MG TAB PO SCH ×2 (08:31→13:05)
[2021-07-28] MEDS: FINASTERIDE 5 MG TAB PO SCH (08:32)
[2021-07-28] MEDS: FEXOFENADINE HCL 180 MG TAB PO SCH (08:32)
[2021-07-28] MEDS: FLUTICASONE FUROATE 100MCG 14 PUFFS/INHALER INH SCH (08:33)
[2021-07-28] MEDS: GABAPENTIN 300 MG CAP PO SCH (08:33)
[2021-07-28] MEDS: FUROSEMIDE 20 MG TAB PO SCH (08:33)
[2021-07-28] MEDS: levETIRAcetam 500 MG TAB PO SCH (08:34)
[2021-07-28] MEDS: POTASSIUM CHLORIDE 10 MEQ TABCR PO SCH (08:35)
[2021-07-28] MEDS: TOPIRAMATE 100 MG TAB PO SCH (08:35)
[2021-07-28] MEDS: predniSONE 10 MG TABLET PO SCH (08:35)
[2021-07-28] MEDS: DICLOFENAC SOD 1% GEL 100 GM TUBE EXT SCH ×2 (08:39→12:13)
[2021-07-28] MEDS ORDERED: INSULIN GLARGINE SOLOSTAR 100 UNITS/ML 3 ML PEN SC SCH (09:00)
[2021-07-28] MEDS: POLYETHYLENE (MIRALAX) 17 GM PACK PO PRN (09:08)
[2021-07-28] MEDS: oxyCODONE HCL IR 5 MG TAB (IMMEDIATE RELEASE) PO PRN ×2 (09:08→13:22)
[2021-07-28] MEDS: INSULIN ASPART PER UNIT SC SCH ×2 (09:11→12:41)
[2021-07-28] MEDS: INSULIN HUMAN NPH SC SCH (09:17)
[2021-07-28] MEDS: SENNA 8.6 MG TAB PO PRN (09:52)
[2021-07-28] MEDS: UMECLIDINIUM/VILANTEROL 62.5/25MCG 7 PUFFS/INHALER INH SCH (09:52)
--- NOTE | 2021-08-02 11:47 | Discharge Summary ---
Date of Service July 28 2021 Admission HPI Per Admitting Provider Xavi Bradford is a 76yo male well known to the medical service. Patient has a complex medical history to include CAD, Parkinson's, Diabetes, Myocarditis, polymyositis and ILD. Patient has a mechanical aortic valve and is therapeutically anticoagulated on Coumadin. Has history of aortic root graft as well. Presents today with acute SOB. He was at home this evening around 18:30 when he developed acute shortness of breath. He took albuterol inhaler x 3 with no improvement. He checked his oxygen saturation with his pulse oximeter and found to be low at 70%. He called his son who lives next door. Placed on O2 at home with portable concentrator with improvement to 80%. EMS was called. Patient reports nasal congestion, hoarseness, generalized weakness and 5-6 episodes of watery diarrhea daily for the last 4 days. He has poor appetite and has not eaten much for the last 2 days. He has a chronic, non-productive cough which is unchanged. Principal Diagnosis Right lower lobe pneumonia Discharge Exam General-alert and oriented x3, no fevers, no chills HEENT-head atraumatic and normocephalic, pupils equal and reactive to light, extraocular muscles intact Neck-no lymphadenopathy or thyromegaly, trachea midline Chest-clear to auscultation percussion. No rales wheezing or rhonchi Cardiac-regular rate and rhythm, normal S1 and S2, no murmurs Abdomen-normal bowel sounds, nontender, no hepatosplenomegaly Extremities-no cyanosis, clubbing, or edema Neuro-cranial nerves II through XII intact, motor and sensory function within normal limits, strength symmetrical , no focal deficits Psych-normal affect, normal mood Discharge Data Allergies Allergy/AdvReac Type Severity Reaction Status Date / Time Iodinated Contrast Media Allergy Severe Anaphylaxis Verified 07/20/21 22:44 shellfish derived Allergy Severe Anaphylaxis Verified 07/20/21 22:44 tamsulosin [From Flomax] Allergy Intermediate Itching Verified 07/20/21 22:44 Tetanus Vaccines and Toxoid Allergy Unknown Unknown Verified 07/20/21 22:44 Consultations 07/20/21 21:49 ED Decision to Admit Stat Hospital Course (1) Shortness of breath: due to right lower lobe pneumonia. Zosyn. No sputum for culture. Known ILD. Oxygen has been weaned off. Patient is improving. Ready for discharge. Awaiting placement. Now on antibiotics to augmentin. Patient denied [facility]. Patient is asking to be discharged home. Patient refusing SNF placement. will discharge home. (2) Chest pain: Patient has longstanding history of intermittent chest discomfort as well as persistently elevated troponin ongoing for the last several months. Prior concern for myocarditis - viral vs autoimmune/rheum etiology. He has been treated wt Prednisone as well as colchicine with minimal improvement in chest discomfort. Echo during last hospitalization with preserved EF. He was recently referred to [facility], seen by Cardiology there. Patient had a cardiac MRI performed which was NEGATIVE for infiltrative cardiac findings or myocarditis. Cardiology felt that his chest discomfort is most likely due to his underlying lung pathology and did not strongly feel that patient has myocarditis. (3) Gout: Chronic. Quiescent. Continue Allopurinol (4) Seizure: No recent seizure activity. Continue Keppra and Topamax (5) Chronic pulmonary aspiration: Aspiration precautions. Easy to chew diet. (6) Parkinsonism: Continue Carbidopa-Levodopa. Stable (7) Interstitial lung disease due to connective tissue disease: Possibly secondary to underlying rheumatological conditions. ?RA/Polymyositis/Dermatomyositis. He was on Rutuximab in the past but was not tolerated. Note from 05/2021 from [facility] - Question whether his ILD is truly ILD or if it is from chronic aspiration. Patient follows with Pulmonary. Currently being worked up by Rheumatolgy and Pulmonary. Continue Prednisone (8) Rheumatoid arthritis: Patient is followed by Rheumatology. Was seen by Rheum recently at [facility] as well. Consultation states that the diagnosis of RA is questionable. Patient does have a strong family history of RA, however, has not had documented synovitis, RF negative and CCP mildly elevated. 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 Pulmonary consult appreciated. Continue Prednisone 10mg po daily (9) Chronic kidney disease, stage 3a: Near baseline. Monitor intake and output. Serial lab studies. Avoid nephrotoxic agents (10) PAF (paroxysmal atrial fibrillation): Rate controlled. On anticoagulation for mechanical aortic valve. Continue Coumadin therapy. Serial INR (11) CAD (coronary artery disease): Patient with history of stent placement to Left main performed in [place] in 2019. Heart cath 05/25/21 at [facility] with widely patent stent, nonobstructive disease to LAD. Patient continues to have persistent chest discomfort - unchanged over the last several months. Dull ache with episodes of sharp pain. Continue current med management. Telemetry. (12) HLD (hyperlipidemia): Continue Atorvastatin (13) Diabetes: Type II. ADA diet. Continue basal insulin therapy. 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 Follows with Rheumatology. (15) Diarrhea: Patient reports 4 days of diarrhea, watery, nonbloody. No report of positive C. difficile toxin. Treated with IVF and electrolyte repletion. (16) Aortic valve replaced: Mechanical aortic valve in place. Patient on Coumadin. Goal INR of 2.5 - 3.5. Serial labs. (17) Pneumonia: Right lower lobe involvement. Continue Zosyn. Sputum culture if sputum is produced. Repeat CXR done July 23 looks better. (18) Hypokalemia: Corrected with oral potassium replacement. Serial labs (19) Acute respiratory failure with hypoxemia: Resolved. Oxygen has been weaned off. Continue treatment of underlying pneumonia Disposition: Probable SNF or rehab placement at discharge. Total Time Total Time Spent Total Time Spent (In Minutes): 32 Discharge Plan Discharge Items Patient Disposition: Home - Self-Care Reason For Visit: SOB, HYPOXIA Discharge Diagnosis: SOB, Hypoxia Activity: Resume your previous activity Non-emergency contact: Primary Care Provider Call non-emergency contact if: you have any medication questions Follow-up/Referrals: Josh Gaspar MD [Primary Care Provider] - 08/10/21 10:30 am (APPT WITH DALI MONTALVO) Diet: Carb Consistent or DM2 and Heart Healthy Diet Texture: Easy to Chew Addtl Attending Provider Instructions: You have been hospitalized for an acute medical problem. During your stay at [facility], we have made an effort to correct the problem that brought you to the hospital while keeping you as comfortable as possible. Medications were used to bring your condition under control and your discharge instructions will include directions for any medications you should take after leaving the hospital. Please make sure you see your Primary Care Provider as part of your follow up plan. May benefit from a trial of cymbalta Pending Studies at Discharge: No Stand-Alone Forms: My [facility], Opioid Pain Management, Smoking Cessation Medications and DC Order Prescriptions: New Anoro Ellipta 62.5-25 mcg/actuation Blister With Device 1 ea inhalation DAILY Qty: 60 RF: 0 warfarin 5 mg Tablet 5 mg PO HS Qty: 30 RF: 0 oxycodone [OxyContin] 10 mg tablet,oral only,ext.rel.12 hr 10 mg PO Q12H Qty: 20 RF: 0 Continued nitroglycerin 0.4 mg tablet, sublingual 0.4 mg sublingual Q5M PRN (Reason: chest pain) Qty: 25 RF: 1 topiramate [Topamax] 100 mg tablet 100 mg PO BID 30 Days Qty: 60 RF: 5 furosemide [Lasix] 20 mg tablet 20 mg PO DAILY RF: 0 prednisone 10 mg tablet 10 mg PO DAILY RF: 0 gabapentin 300 mg capsule 300 mg PO BID Qty: 180 RF: 1 cholecalciferol (vitamin D3) [Vitamin D3] 50 mcg (2,000 unit) capsule 4,000 unit PO HS RF: 0 atorvastatin 40 mg tablet 40 mg PO HS RF: 0 fexofenadine [Karlee Allergy] 180 mg Tablet 180 mg PO QAM RF: 0 Trelegy Ellipta 100-62.5-25 mcg blister with device 1 inh inhalation QAM RF: 0 finasteride 5 mg tablet 5 mg PO QAM RF: 0 allopurinol 100 mg tablet 100 mg QPM RF: 0 carbidopa-levodopa 25-100 mg tablet 1 tab PO TID RF: 0 diclofenac sodium [Voltaren Arthritis Pain] 1 % Gel 2 g EXT QID Qty: 100 RF: 0 levetiracetam 500 mg tablet 750 mg PO HS RF: 0 levetiracetam [Keppra] 500 mg tablet 1,000 mg PO QAM RF: 0 oxycodone 5 mg Tablet 5 mg PO Q4H PRN (Reason: pain) Qty: 30 RF: 0 sennosides [Senokot] 8.6 mg tablet 17.2 mg PO BID Qty: 0 RF: 0 polyethylene glycol 3350 [Miralax] 17 gram/dose Powder 17 g PO BID Qty: 0 RF: 0 albuterol sulfate [Ventolin HFA] 90 mcg/actuation Hfa Aerosol Inhaler 2 puff INHALATION Q4H Qty: 0 RF: 0 insulin aspart U-100 [Novolog Flexpen U-100 Insulin] 100 unit/mL (3 mL) insulin pen See Rx Instructions .ROUTE .COMPLEX Qty: 0 RF: 0 (DME) Oxygen Home Liters Per Minute See Rx Instructions .ROUTE .MEDSUPPLY Qty: 1 RF: 0 Lantus Solostar U-100 Insulin 100 unit/mL (3 mL) insulin pen 20 unit SUBCUT BID RF: 0 Novolin N NPH U-100 Insulin 100 unit/mL Suspension 10 unit SUBCUT DAILY RF: 0 Discontinued warfarin [Jantoven] 10 mg tablet 7.5 mg PO HS RF: 0 Discharge Orders: Discharge Order (Routine); Ordered 07/28/21 Ordered By: [place]/Other Patient Handouts: Preventing Deep Vein Thrombosis Admission Data Admit Date/Time: 07/20/21 22:52 Attending Provider: [place] Admit Provider: Ana Dong Primary Care Provider: Josh Gaspar Other Providers: Ana Dong ; [facility] Other Interventions: Discharge Summary Assessment (RN) Last Done: 07/28/21 13:43 Coding Level of Care Code D/C DAY MANAGEMENT >30 MINS Diagnoses Shortness of breath R06.02 Chest pain R07.2 Chest pain type: precordial pain Gout M10.9 Seizure R56.9 Chronic pulmonary aspiration T17.908A Parkinsonism G20 Parkinsonism type: unspecified 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; M35.9 Rheumatoid arthritis M06.9 Rheumatoid arthritis location: unspecified site Rheumatoid factor presence: unspecified presence Chronic kidney disease, stage 3a N18.3 PAF (paroxysmal atrial fibrillation) I48.0 CAD (coronary artery disease) I25.10 Coronary Disease-Associated Artery/Lesion type: [place] artery [place] vs. transplanted heart: [place] heart Associated angina: without angina HLD (hyperlipidemia) E78.2 Hyperlipidemia type: mixed hyperlipidemia Diabetes E11.42; Z79.4 Diabetes mellitus type: type 2 Diabetes mellitus lobsterman insulin use: with senior care use Diabetes mellitus complication status: with neurologic complications Diabetes mellitus complication detail: with polyneuropathy Polymyositis M33.20 Diarrhea R19.7 Diarrhea type: unspecified type Aortic valve replaced Z95.2 Pneumonia J18.9 Hypokalemia E87.6 Acute respiratory failure with hypoxemia J96.01
== END 2021-07-28 15:32 | disposition home or self-care (01) | DRG 194 ==
LOC: ED 20:17 → SUATTDRO 22:52 → 3E 22:52
DX: R07.89 Other chest pain; Z79.01 Long term (current) use of anticoagulants; G40.909 Epilepsy, unspecified, not intractable, without status epilepticus; N18.31 Chronic kidney disease, stage 3a; M33.20 Polymyositis, organ involvement unspecified; Z88.7 Allergy status to serum and vaccine; M10.9 Gout, unspecified; J18.9 Pneumonia, unspecified organism; E87.6 Hypokalemia; Z91.041 Radiographic dye allergy status; M06.9 Rheumatoid arthritis, unspecified; I48.0 Paroxysmal atrial fibrillation; G20 Parkinson's disease; Z79.4 Long term (current) use of insulin; I25.10 Atherosclerotic heart disease of native coronary artery without angina pectoris; Z79.52 Long term (current) use of systemic steroids; Y92.009 Unspecified place in unspecified non-institutional (private) residence as the place of occurrence of the external cause; E11.9 Type 2 diabetes mellitus without complications; Z95.2 Presence of prosthetic heart valve; J84.9 Interstitial pulmonary disease, unspecified; E78.5 Hyperlipidemia, unspecified; R19.7 Diarrhea, unspecified; Z98.84 Bariatric surgery status; T17.908A Unspecified foreign body in respiratory tract, part unspecified causing other injury, initial encounter

== ENCOUNTER 2021-07-31 06:56 | Observation (INO) ==
[2021-07-31 07:59] LABS: Hematocrit (blood only) 39.1 % (42-52); Hemoglobin 12.3 g/dL (14.0-18.0); Mean Corpuscular Hemoglobin 27.2 pg (25-34); Mean Corpuscular Hgb Conc 31.5 g/dL (32-36); Mean Corpuscular Volume 86.5 fL (80-100); Mean Platelet Volume 9.9 fL (7.4-10.4); Platelet Count 155 K/uL (130-400); RDW Coefficient of Variation 18.8 % (11.5-14.5); RDW Standard Deviation 59.8 fL (36.4-46.3); Red Blood Count 4.52 M/uL (4.7-6.1); White Blood Count 6.86 K/uL (4.8-10.8)
[2021-07-31 08:07] LABS: INR 2.5 (0.9-1.1)
[2021-07-31 08:14] LABS: Basophils # (auto) 0.02 K/uL (0-0.2); Basophils % (auto) 0.3 %; Eosinophils % (auto) 1.5 %; Immature Granulocytes # (auto) 0.08 K/uL (0.00-0.02); Immature Granulocytes % (auto) 1.2 %; Lymphocytes # (auto) 1.03 K/uL (1.2-3.4); Monocytes # (auto) 0.32 K/uL (0.11-0.59); Monocytes % (auto) 4.7 %; Neutrophils # (auto) 5.31 K/uL (1.4-6.5); Neutrophils % (auto) 77.3 %
--- NOTE | 2021-07-31 08:24 | XRay Report ---
XR chest 2V PA/lateral CLINICAL HISTORY: fall at home, weakness COMPARISON STUDY: Chest radiograph July 23, 2021. Chest CT July 09, 2021. FINDINGS: Lung volumes are mildly diminished. There is no pneumothorax. There are trace bilateral ple ural effusions. Interstitial thickening is noted. There is minimal right mid and bibasilar opacities. Cardiomegaly is noted. There are median sternotomy wires. Prosthetic aortic valve is present. Postop erative findings within the cervical spine. IMPRESSION: 1. No pneumothorax. Trace bilateral pleural effusions. 2. Mild interstitial thickening. This favors pulmonary edema although an infectious process could gato ear similar. 3. Minimal bibasilar and right midlung opacities. ACT 112: Negative or not required by law. Electronically signed by: John Paul Drummond M.D. 07/31/2021 8:21 AM
--- NOTE | 2021-07-31 08:24 | XRay Report ---
XR lumbar spine 2-3V CLINICAL HISTORY: fall at home, low back pain, hx of surgery COMPARISON STUDY: Lumbar spine MRI February 12, 2021. Lumbar spine CT November 11, 2020. FINDINGS: There are postoperative findings consistent with L5-S1 discectomy and L3-S1 posterior decom pression and bilateral posterior fusion. Hardware is intact. Gastric lap band is incidentally noted. No acute lumbar spine fracture is present. Vertebral body heights are maintained. No suspicious osseo us lesions. Sacroiliac joints are intact. Degenerative changes within lumbar spine are present. IMPRESSION: 1. No acute lumbar spine fracture or subluxation. 2. Status post L5-S1 discectomy and L3-S1 posterior decompression bilateral pedicle screw fusion. Dangelo shantell intact. ACT 112: Negative or not required by law. Electronically signed by: John Paul Drummond M.D. 07/31/2021 8:23 AM
[2021-07-31] MEDS: SODIUM CHLORIDE 0.9% 1000ML 1,000 ML IV SCH ×3 (08:26→23:38)
--- NOTE | 2021-07-31 08:28 | XRay Report ---
XR shoulder RT min 2V routine CLINICAL HISTORY: fall at home, R shoulder pain COMPARISON: None FINDINGS: Apparent foreshortening of the proximal right humerus on internal rotation view is likely technical. No acute fracture is identified on the external rotation and AP projections. Severe joint space narrowing of the acromioclavicular joint is noted. There is mild osteophytosis. Mild glenohumer al joint space narrowing and osteophytosis is present. IMPRESSION: 1. No acute fracture or dislocation within the right shoulder. 2. 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 ACT 112: Negative or not required by law. Electronically signed by: John Paul Drummond M.D. 07/31/2021 8:26 AM
--- NOTE | 2021-07-31 08:29 | CT Scan Report ---
CT OF THE HEAD WITHOUT CONTRAST CLINICAL HISTORY: fall at home, weakness, on thinners COMPARISON STUDY: Head CT April 28, 2021. MRI of the brain May 20, 2021. CT DOSE: 687.98 mGy.cm TECHNIQUE: Helical axial images of the head were obtained without IV contrast. Automated exposure con trol was utilized for the study. A dose lowering technique was utilized adhering to the principles o f ALARA. FINDINGS: No acute intracranial hemorrhage, midline shift or mass effect is present. White matter hyp odensities are similar to prior exam and favor small vessel disease. 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 The ventricular system is stable. The basal cisterns are pat ent. No extra-axial collections are present. There are no findings to suggest acute dural sinus throm bosis or acute territorial infarct. No acute calvarial fracture. Bilateral mastoid air cells are part ially opacified, left greater than right. This is unchanged. IMPRESSION: 1. No acute intracranial findings. No change in appearance of the brain. 2. No acute calvarial fracture. ACT 112: Negative or not required by law. Electronically signed by: John Paul Drummond M.D. 07/31/2021 8:28 AM
[2021-07-31 08:30] LABS: Troponin I 41.64 ng/ml (0-0.04)
[2021-07-31 08:35] LABS: Albumin Globulin Ratio 1.5 (0.9-2); Albumin Level 3.6 gm/dl (3.4-5.0); BUN Creatinine Ratio 24.5 (10-20); Bilirubin,Total 0.7 mg/dl (0.2-1.0); Calcium 9.4 mg/dl (8.5-10.1); Creatinine Clr Calc Pharmacy 42.3 ml/min; Est GFR (African American) 46.7 ml/min; Est GFR (Non-African American) 40.3 ml/min; Globulin 2.4 gm/dl (2.5-4.0); Potassium 3.8 mmol/L (3.5-5.1)
[2021-07-31 08:59] LABS: Magnesium 1.9 mg/dl (1.7-2.4)
--- NOTE | 2021-07-31 09:55 | History & Physical Report ---
Date of Service July 31, 2021 Assessment & Plan (1) Fall: Plan: History of numerous falls over the years. Had another fall on Sunday, 07/29 (slid off his bed). He admitted to feeling quite weak upon return home after his recent hospital stay for RLL pneumonia. Surprisingly he does not have evidence of rhabdomyolysis despite the length of time he was immobile on the floor. He does not have any apparent injuries. R shoulder x-rays, cxr, CT head - all negative for injury or ICH. On clinical exam he has no evidence of injury/fracture to his pelvis or hips. He is c/o posterior cervical pain so I obtained a CT of the c-spine - this returned negative for fracture. Recent B12 level, TSH, sodium, K, and mag levels have been wnl. I suspect that polyneuropathy is a big reason for his falls. In this case it would have been compounded by significant deconditioning in the setting of multiple recent hospital stays. He really does not appear fit to be alone at home - however, he has declined placement in the past at SNF. Perhaps he would be agreeable to a [facility]? He will need PT/OT while here. Will order for tomorrow. COVID testing negative. Will check a flu/RSV as well to ensure no infectious cause led to his fall/weakness. Check a u/a and urine cx, I/O straight cath. (2) Acute kidney injury: Plan: Baseline Cr about 1.1. Cr today 1.6. pre-renal/volume depletion is apparent. HOLD lasix. Continue isotonic fluids. Repeat BMP am. Check a u/a. (3) Neck pain: Plan: 2nd to fall. C-spine CT obtained - advanced DJD but no fractures. Pain control prn. (4) Chronic chest pain: Plan: All troponins in the past were normal until this April 2021 when he presented to [facility] with constant chest pain. He was felt to have myocarditis - either 2nd to viral etiology or autoimmune/inflammatory. He was placed on higher amounts of prednisone (takes 10mg chronically) and colchicine. Despite such his pains never resolved, and his troponin has remained in the 30- 35 range since that time. On 05/25/21 Dr Stevan Vincent performed a cath and his previous stents were patent. No areas of high-grade stenosis were seen. Echo has continued to show intact LV function. During his recent stay at [facility] he underwent a cardiac MRI which, by report, was normal (no evidence of infiltrative disease such as sarcoid/amyloid, etc). Cause of troponin elevation was uncertain. At his recent office visit with Dr Shipley, [facility] in [place], his colchicine & leflunomide were both stopped due to lack of evidence of myocarditis/pericarditis. His troponin today is the highest it has been -- now 41 (perhaps due to the fall and laying on ground). With the persistent chest pain and elevated troponin could he have aortitis? He does have a history of thoracic aortic dissection s/p repair. Strongly consider CTA or MRA of the aorta while here to r/o aortitis. If negative would need to investigate non-cardiac causes of the troponin. Will repeat a troponin later today to ensure it is not trending up further. Of note - the chronic chest pain is unchanged in any features today in comparison to the last 2 months. Lastly, a non-contrast chest CT was performed at [facility] recently showing the previously identified infiltrates concerning for chronic aspiration. (5) Elevated troponin: Plan: See #4 above. 41 today. Trend. (6) Polymyositis: Plan: Follows with Dr Britton Shipley, [facility]. Apparently had had a polymyositis panel in the past showing MDA5 level elevation (per Dr Shipley - his level was 34, normal being <20). He has had positive anti-CCP ab and aldolase levels in the past. All CPK levels however, both past & present, have been normal. He is on chronic prednisone therapy for this condition. Check a CRP today. (7) Chronic respiratory failure with hypoxia: Plan: On home O2 - there has been concern in the past for ILD but has never been fully proven. Previous biopsies in [place] of the left lung were inconclusive for ILD. He has been evaluated at the [facility] - they, too, felt that ILD was not present and that his chest CT findings are likely more c/w chronic aspiration. He follows with Dr Wiliam Ortega - [facility]. He just saw Dr Ortega in the clinic - he also feels that his chronic respiratory issues are likely from chronic aspiration. (8) CAD (coronary artery disease): Plan: Previous cath 04/2021 with patent stents. Continue statin. Uncertain why he is not on aspirin or low-dose BB. (9) Candidiasis of mouth and esophagus: Plan: Nystatin solution 5cc qid swish/spit. (10) Chronic kidney disease, stage 3a: Plan: Baseline Cr about 1 to 1.1. Baseline CrCl 50s/60s. Now with SHYANN. BMP in am. (11) Chronic pulmonary aspiration: Plan: Suspected - [facility], [facility], [facility], etc - all feel that this is more likely the cause of his chronic pulmonary issues as opposed to ILD. FEES study by speech therapy last done on 12/08/20. This confirmed silent aspiration. The mechanism of his aspiration is due to pharyngeal pooling of liquid per speech. Speech reported that a solution to his dysphagia was not possible. Aspiration precautions - head of bed at 30 degrees at all times, etc. (12) Chronic use of steroids: Plan: Prednisone 10mg/day for polymyositis. There has been ?RA in the past but no joint manifestations of such. Dermatomyositis has also been entertained as a diagnosis. He did not have his prednisone yesterday or today. He is deserving of stress dose steroids. Will give dexamethasone 10mg IV x 1 now. (13) Constipation due to opioid therapy: Plan: Continue a bowel regimen. (14) Diabetes: Plan: Hba1c 6.9% in June. Cont lantus BID. Cont novolog - carb ratio 1:10, correction 30. Adjust as needed especially in light of stress dose steroids. (15) History of aortic valve replacement: Plan: 2003. Mechanical. INR goal range 2.5 to 3.5. Fortunately no ICH or other bleeding from his fall. Cont warfarin 5mg daily. INR daily. (16) History of gastric bypass: (17) History of prostate cancer: (18) History of seizures: Plan: Continue gabapentin, topamax, keppra. No recent seizures. Last keppra level was 03/2021 and was within goal range. Can't rule out a seizure leading to his fall on 07/29 but felt to be unlikely. (19) HLD (hyperlipidemia): Plan: Continue lipitor. (20) Interstitial lung disease due to connective tissue disease: Plan: ILD has been suspected for several years but nothing has confirmed that diagnosis. See #[address] Wiliam Ortega for his chronic respiratory problems. (21) PAF (paroxysmal atrial fibrillation): Plan: On coumadin. He is not on AV elysia agents or antiarrhythmics chronically. Place on tele and monitor. (22) Parkinsonism: Plan: Continue carbidopa-levodopa TID. Plan: place on observation status for now will update pt's son this afternoon History of Present Illness Chief Complaint: fall, no oral intake since Sunday evening Primary Care Provider: Josh Gaspar MD Complicated 76yo male with numerous medical problems (polymyositis/?RA, ?ILD vs chronic aspiration with resulting chronic hypoxic respiratory failure on home O2 2 L, chronic steroid dependency, CAD with prior stents, h/o myocarditis, PAF, CKD stage 3a, h/o mechanical AV replacement on coumadin, seizure disorder, and chronically elevated troponin level x 3 months of uncertain etiology) - recent hospitalization at [facility] then [facility] for the elevated troponin, persistent chest pain, and concern for myocarditis. Had negative cardiac MRI at [facility] and thus myocarditis was ruled out. Seen by pulmonary at [facility] - ILD was NOT suspected based on the available data. The cause of the troponin elevation was not certain. He was released to home in [place]. After that stay he saw his primary grape cutter, Dr Buckley at [facility] - leflunomide & colchicine (prescribed for concern for myocarditis) were both stopped. Unfortunately got readmitted to [facility] on 07/20 for RLL pneumonia and discharged on 07/28/21. Rehab was recommended but unfortunately inpatient rehab was denied by his insurance. He did not want SNF level placement and thus returned home with [facility]. Patient states when he got home he "felt ok" but was weak. He was eating/drinking and his last meal was Sunday evening at dinner-time. About 6pm on Sunday, 07/29, he "slid off his bed" onto the floor. He denied having loss of consciousness. Denied any head trauma. He doesn't recall having any fever or other infectious symptoms that day. From 6pm Sunday night to Sunday morning about 9-10am he laid on the floor. He had no ability to get to his phone and his [employer] device wasn't working. Went without any medications on Sunday pm. Saturday am he somehow managed to commando-crawl to his living room and got up on the couch. He found his phone and called his neighbor. The neighbor helped him into the chair in the living room. He had some liquid intake that afternoon. His neighbor encouraged him to go to the hospital but he declined. He also mentions he did not have his oxygen during this time period. Again he had no medications except his coumadin and took 10mg last pm. This am he was unable to get up out of his chair & thus he called his son. His son had been out of town but was back in [place] by this am. The son came to his house and called 911 for him. During my ER assessment he c/o left sided temporal headache, posterior neck pain, right shoulder pain, and minimal amount of left shoulder pain. Denied pelvic pain. He continues with his baseline chest pain, 6/10, over the left chest. This is the same pain he has had since late April 2021. Troponin today is 41.6. Allergies Allergy/AdvReac Type Severity Reaction Status Date / Time Iodinated Contrast Media Allergy Severe Anaphylaxis Verified 07/20/21 22:44 shellfish derived Allergy Severe Anaphylaxis Verified 07/20/21 22:44 tamsulosin [From Flomax] Allergy Intermediate Itching Verified 07/20/21 22:44 Tetanus Vaccines and Toxoid Allergy Unknown Unknown Verified 07/20/21 22:44 Home Medications Medication Instructions Recorded Confirmed Type atorvastatin 40 mg tablet 40 mg PO HS 05/28/20 07/20/21 History gabapentin 300 mg capsule 300 mg PO BID #180 cap 12/28/20 07/20/21 Rx fexofenadine 180 mg tablet 180 mg PO QAM 02/11/21 07/20/21 History (Karlee Allergy) fluticasone fur. 100 mcg-umeclid 1 inh INHALATION QAM 02/11/21 07/20/21 History 62.5 mcg-vilant 25 mcg inhalat.powder (Trelegy Ellipta) allopurinol 100 mg tablet 100 mg QPM 04/10/21 07/20/21 History finasteride 5 mg tablet 5 mg PO QAM 04/28/21 07/20/21 History nitroglycerin 0.4 mg sublingual 0.4 mg SUBLINGUAL Q5M PRN #25 tab 05/05/21 07/20/21 Rx tablet carbidopa 25 mg-levodopa 100 mg 1 tab PO TID 05/24/21 07/20/21 History tablet diclofenac sodium 1 % topical gel 2 g EXT QID #100 g 06/01/21 07/20/21 Rx (Voltaren Arthritis Pain) levetiracetam 500 mg tablet 750 mg PO HS 06/30/21 07/20/21 History levetiracetam 500 mg tablet 1,000 mg PO QAM 06/30/21 07/20/21 History (Keppra) Oxygen Home #1 ea 07/08/21 07/20/21 Rx albuterol sulfate 90 mcg/actuation 2 puff INHALATION Q4H #0 g 07/08/21 07/20/21 Rx aerosol inhaler (Ventolin HFA) insulin aspart U-100 100 unit/mL See Rx Instructions .ROUTE 07/08/21 07/20/21 Rx (3 mL) subcutaneous pen (Novolog .COMPLEX #0 ml Flexpen U-100 Insulin aspart) oxycodone 5 mg tablet 5 mg PO Q4H PRN #30 tab 07/08/21 07/20/21 Rx polyethylene glycol 3350 17 17 g PO BID #0 g 07/08/21 07/20/21 Rx gram/dose oral powder (Miralax) sennosides 8.6 mg tablet (Senokot) 17.2 mg PO BID #0 tab 07/08/21 07/20/21 Rx topiramate 100 mg tablet (Topamax) 100 mg PO BID 30 Days #60 tab 07/12/21 07/20/21 Rx cholecalciferol (vitamin D3) 50 4,000 unit PO HS cap 07/14/21 07/20/21 History mcg (2,000 unit) capsule (Vitamin D3) furosemide 20 mg tablet (Lasix) 20 mg PO DAILY tab 07/14/21 07/20/21 History prednisone 10 mg tablet 10 mg PO DAILY tab 07/14/21 07/20/21 History insulin NPH isoph U-100 human 100 10 unit SUBCUT DAILY 07/26/21 07/26/21 History unit/mL subcutaneous suspension (Novolin N NPH U-100 Insulin isophane) insulin glargine 100 unit/mL (3 20 unit SUBCUT BID 07/26/21 07/26/21 History mL) subcutaneous pen (Lantus Solostar U-100 Insulin) oxycodone 10 mg tablet,crush 10 mg PO Q12H #20 tab 07/28/21 Rx resistant,extended release 12 hr (OxyContin) umeclidinium 62.5 mcg-vilanterol 1 ea INHALATION DAILY #60 ea 07/28/21 Rx 25 mcg/actuation powdr for inhalation (Anoro Ellipta) warfarin 5 mg tablet 5 mg PO HS #30 tab 07/28/21 Rx Past Med/Surg History Medical History Abnormal CT scan, chest Acute hyperglycemia Acute left-sided muscle weakness Anemia Aspiration pneumonia CAD (coronary artery disease) Chronic dyspnea Chronic pulmonary aspiration Dehydration Diabetes Fall HLD (hyperlipidemia) Hypoxia Interstitial lung disease due to connective tissue disease Non-ST elevation CA (NSTEMI) Polymyositis Prostate cancer s/p XRT Rheumatoid arthritis Stroke-like symptom 12/2019, w/ blurry vision and dysarthria. mild R sided wkness. attending outpatient physical therapy w/ good improvement in strength (5+/5 strength of all 4 extremities as of 05/28/20) Subtherapeutic international normalized ratio (INR) Syncope Thoracic ascending aortic aneurysm s/p repair Weakness Surgical History H/O hernia repair History of aortic valve replacement mechanical History of cholecystectomy History of fusion of cervical spine History of gastric bypass lap band History of heart artery stent History of lung biopsy 2019 History of partial nephrectomy Family History Mother , age 87 of pulmonary issues Rheumatoid arthritis Father , in his mid 80s of a stroke Stroke Other Coronary heart disease Social History Smoking Status: Never smoker Second Hand Exposure: No; Hx Alcohol Use: No Hx Substance Use: No Preferred Language: Tamazight Communication Ability: Effective Hearing Ability: Hard of Hearing Event Marketing Intern Required: No Beliefs That Will Affect Care: None marital status: / Current Living Situation: Alone Current Living Situation Comment: lives alone in a one story house in [place] current occupational status: retired 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 How many Children do You have: 1 How many Children do You have Comment: son Other Information That Helps Us Care for You: No Feels Safe at Home: Yes Safety Concerns: Feels Safe At This Time Assistive Devices: Glasses, Hearing Aid - Bilateral and Oxygen - at Night Review of Systems Review of Systems: gen - no fevers, no chills, no oral intake since late Sunday pm eyes - no change in vision HENT - no ear pain, no sore throat; chronic nasal congestion; mouth very dry; denies dysphagia neck - c/o pain since his fall, posterior neck CV - chronic chest pain, left-sided; no orthopnea pulm - mild, intermittent, chronic cough; no dyspnea today GI - no abd pain, nausea, emesis; no stool since some time last week; no rectal bleeding - minimal UOP over the weekend; he voided into his depends when he was on the floor musculo - denies diffuse myalgias; +b/l shoulder pain skin - bruises on arms neuro - generalized weakness; chronic R foot drop; left temporal headache endo - did not have ability to check BSGs this weekend psych - depressed over his chronic health issues, hospital stays, etc Physical Exam Physical Exam: gen - dehydrated, awake, oriented x 3 (knew it was July 2021, "Juan [facility] Zal[place]ar" - couldn't get the day); looks very tired and weak eyes - PERRL, no icterus HENT - b/l hearing aids in place; mouth - VERY dry MM; ?thrush on tongue; no lesions or bite billings on tongue; nose clear neck - tender to palpation over posterior c-spine; no thyroidmegaly; no carotid bruits heart - RRR, s1 s2, no murmur lungs - right basilar rales, otherwise CTA b/l, no wheezes abd - soft, NT, ND, BS+, no HSM; RUQ scar chest - midline sternal scar; nontender to palpation over chest ext - RLE is larger than LLE; trace edema RLE, none on left; pulses 2+ b/l skin - scattered bruises on arms; chronic venous stasis changes b/l shins musculo - right shoulder with crepitus on passive ROM; mild tenderness over R shoulder with passive ROM. Left shoulder - passive ROM does not elicit pain. No pain over pelvis with palpation. Full passive ROM of both hips without pain. No trauma to arms/legs. neuro - no facial droop; strength 4-5/5 RUE; 5/5 LUE; R foot drop; LLE 5/5 strength. lymph - no cervical LAD psych - a/o x 3 Results & Data Results & Data ([facility]) Vital Signs (Past 12 Hours) Vital Signs Temp Pulse Pulse Resp BP BP Pulse Ox 07/31/21 09:00 73 16 92/64 L 98 07/31/21 08:00 77 18 122/62 97 07/31/21 07:25 95 07/31/21 07:17 36.7 C 88 22 100/62 94 Laboratory Results Laboratory Results - last 24 hr 07/31/21 07/31/21 07/31/21 07:30 07:30 07:30 WBC 6.86 RBC 4.52 L Hgb 12.3 L Hct 39.1 L MCV 86.5 MCH 27.2 MCHC 31.5 L RDW Std Deviation 59.8 H RDW Coeff of Lianne 18.8 H Plt Count 155 MPV 9.9 Immature Gran % (Auto) 1.2 Neut % (Auto) 77.3 Lymph % (Auto) 15.0 Simpson % (Auto) 4.7 Eos % (Auto) 1.5 Baso % (Auto) 0.3 Neut # (Auto) 5.31 Lymph # (Auto) 1.03 L Simpson # (Auto) 0.32 Eos # (Auto) 0.10 Baso # (Auto) 0.02 Immature Gran # (Auto) 0.08 H PT 25.0 H INR 2.5 H Sodium 138 Potassium 3.8 Chloride 107 Carbon Dioxide 21 Anion Gap 10 BUN 40 H Creatinine 1.63 H Est Cr Clr Drug Dosing 42.3 Est GFR ( Amer) 46.7 Est GFR (Non-Af Amer) 40.3 BUN/Creatinine Ratio 24.5 H Glucose 262 H Calcium 9.4 Magnesium Total Bilirubin 0.7 AST 12 L ALT 5 L Alkaline Phosphatase 57 Total Creatine Kinase Troponin I 41.64 H* B-Natriuretic Peptide Total Protein 6.0 Albumin 3.6 Globulin 2.4 L Albumin/Globulin Ratio 1.5 Influ A Molecular Assay Influ B Molecular Assay RSV (Molecular) SARS-CoV-2, RNA, NAAT 04/03/22 04/03/22 04/03/22 07:30 08:00 08:24 WBC RBC Hgb Hct MCV MCH MCHC RDW Std Deviation RDW Coeff of Lianne Plt Count MPV Immature Gran % (Auto) Neut % (Auto) Lymph % (Auto) Simpson % (Auto) Eos % (Auto) Baso % (Auto) Neut # (Auto) Lymph # (Auto) Simpson # (Auto) Eos # (Auto) Baso # (Auto) Immature Gran # (Auto) PT INR Sodium Potassium Chloride Carbon Dioxide Anion Gap BUN Creatinine Est Cr Clr Drug Dosing Est GFR ( Amer) Est GFR (Non-Af Amer) BUN/Creatinine Ratio Glucose Calcium Magnesium 1.9 Total Bilirubin AST ALT Alkaline Phosphatase Total Creatine Kinase 54 Troponin I B-Natriuretic Peptide 95 Total Protein Albumin Globulin Albumin/Globulin Ratio Influ A Molecular Assay Influ B Molecular Assay RSV (Molecular) SARS-CoV-2, RNA, NAAT NEGATIVE 07/31/21 10:43 WBC RBC Hgb Hct MCV MCH MCHC RDW Std Deviation RDW Coeff of Lianne Plt Count MPV Immature Gran % (Auto) Neut % (Auto) Lymph % (Auto) Simpson % (Auto) Eos % (Auto) Baso % (Auto) Neut # (Auto) Lymph # (Auto) Simpson # (Auto) Eos # (Auto) Baso # (Auto) Immature Gran # (Auto) PT INR Sodium Potassium Chloride Carbon Dioxide Anion Gap BUN Creatinine Est Cr Clr Drug Dosing Est GFR ( Amer) Est GFR (Non-Af Amer) BUN/Creatinine Ratio Glucose Calcium Magnesium Total Bilirubin AST ALT Alkaline Phosphatase Total Creatine Kinase Troponin I B-Natriuretic Peptide Total Protein Albumin Globulin Albumin/Globulin Ratio Influ A Molecular Assay Negative Influ B Molecular Assay Negative RSV (Molecular) Negative SARS-CoV-2, RNA, NAAT Diagnostic Findings Chest X-Ray 07/31/21 07:25 XR chest 2V PA/lateral CLINICAL HISTORY: fall at home, weakness COMPARISON STUDY: Chest radiograph July 23, 2021. Chest CT July 09, 2021. FINDINGS: Lung volumes are mildly diminished. There is no pneumothorax. There are trace bilateral pleural effusions. Interstitial thickening is noted. There is minimal right mid and bibasilar opacities. Cardiomegaly is noted. There are median sternotomy wires. Prosthetic aortic valve is present. Postoperative findings within the cervical spine. IMPRESSION: 1. No pneumothorax. Trace bilateral pleural effusions. 2. Mild interstitial thickening. This favors pulmonary edema although an infectious process could appear similar. 3. Minimal bibasilar and right midlung opacities. ACT 112: Negative or not required by law. Electronically signed by: John Paul Drummond M.D. 07/31/2021 8:[address] 07/31/21 07:25 CT OF THE HEAD WITHOUT CONTRAST CLINICAL HISTORY: fall at home, weakness, on thinners COMPARISON STUDY: Head CT April 28, 2021. MRI of the brain May 20, 2021. CT DOSE: 687.98 mGy.cm TECHNIQUE: Helical axial images of the head were obtained without IV contrast. Automated exposure control was utilized for the study. A dose lowering technique was utilized adhering to the principles of ALARA. FINDINGS: No acute intracranial hemorrhage, midline shift or mass effect is present. White matter hypodensities are similar to prior exam and favor small vessel disease. 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 The ventricular system is stable. The basal cisterns are patent. No extra-axial collections are present. There are no findings to suggest acute dural sinus thrombosis or acute territorial infarct. No acute calvarial fracture. Bilateral mastoid air cells are partially opacified, left greater than right. This is unchanged. IMPRESSION: 1. No acute intracranial findings. No change in appearance of the brain. 2. No acute calvarial fracture. ACT 112: Negative or not required by law. Electronically signed by: John Paul Drummond M.D. 07/31/2021 8:28 AM Lumbar Spine X-Ray 07/31/21 07:25 XR lumbar spine 2-3V CLINICAL HISTORY: fall at home, low back pain, hx of surgery COMPARISON STUDY: Lumbar spine MRI February 12, 2021. Lumbar spine CT November 11, 2020. FINDINGS: There are postoperative findings consistent with L5-S1 discectomy and L3-S1 posterior decompression and bilateral posterior fusion. Hardware is intact. Gastric lap band is incidentally noted. No acute lumbar spine fracture is present. Vertebral body heights are maintained. No suspicious osseous lesions. Sacroiliac joints are intact. Degenerative changes within lumbar spine are present. IMPRESSION: 1. No acute lumbar spine fracture or subluxation. 2. Status post L5-S1 discectomy and L3-S1 posterior decompression bilateral pedicle screw fusion. Hardware intact. ACT 112: Negative or not required by law. Electronically signed by: John Paul Drummond M.D. 07/31/2021 8:23 AM Shoulder X-Ray 07/31/21 07:25 XR shoulder RT min 2V routine CLINICAL HISTORY: fall at home, R shoulder pain COMPARISON: None FINDINGS: Apparent foreshortening of the proximal right humerus on internal rotation view is likely technical. No acute fracture is identified on the external rotation and AP projections. Severe joint space narrowing of the acromioclavicular joint is noted. There is mild osteophytosis. Mild glenohumeral joint space narrowing and osteophytosis is present. IMPRESSION: 1. No acute fracture or dislocation within the right shoulder. 2. 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 ACT 112: Negative or not required by law. Electronically signed by: John Paul Drummond M.D. 07/31/2021 8:26 AM EKG - my reading - NSR, NS ST changes I/AVl, otherwise no ST changes Code Status & VTE Plan Code Status full code PG Care Time/CCT Total # of Minutes Spent Total Time Spent with Patient: Total time spent is greater than 50% in coordination of care (as documented) at patient's floor/unit and/or counseling patient: Coding Level of Care Code INT OBSERVATION CARE 70M LVL 3 Diagnoses Fall W19.XXXA Acute kidney injury N17.9 Neck pain M54.2 Elevated troponin R77.8 Chronic respiratory failure with hypoxia J96.11 CAD (coronary artery disease) I25.10 Associated angina: without angina Coronary Disease-Associated Artery/Lesion type: [place] artery [place] vs. transplanted heart: [place] heart Candidiasis of mouth and esophagus B37.81; B37.0 Chronic kidney disease, stage 3a N18.3 Chronic pulmonary aspiration T17.908A Chronic use of steroids Constipation due to opioid therapy K59.03; T40.2X5A Diabetes E11.42; Z79.4 Diabetes mellitus complication detail: with polyneuropathy Diabetes mellitus complication status: with neurologic complications Diabetes mellitus fpc insulin use: with fpc use Diabetes mellitus type: type 2 History of aortic valve replacement Z95.2 History of gastric bypass Z98.84 History of prostate cancer Z85.46 History of seizures Z87.898 HLD (hyperlipidemia) E78.2 Hyperlipidemia type: mixed hyperlipidemia 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; M35.9 PAF (paroxysmal atrial fibrillation) I48.0 Parkinsonism G20 Parkinsonism type: unspecified Polymyositis 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 transplanted heart: [place] heart Qualified Code(s): I25.10 - Atherosclerotic heart disease of [place] coronary artery without angina pectoris (3) HLD (hyperlipidemia) Hyperlipidemia type: mixed hyperlipidemia Qualified Code(s): E78.2 - Mixed hyperlipidemia (4) Parkinsonism Parkinsonism type: unspecified Qualified Code(s): G20 - Parkinson's disease
[2021-07-31] MEDS ORDERED: DEXAMETHASONE SOD INJ 4 MG/ML VIAL IV STA (10:34)
[2021-07-31 11:06] LABS: RSV by PCR Negative (Negative)
[2021-07-31 11:07] LABS: Influenza A virus by PCR Negative (Negative); Influenza B virus by PCR Negative (Negative)
--- NOTE | 2021-07-31 11:15 | CT Scan Report ---
CT OF THE CERVICAL SPINE WITHOUT CONTRAST CLINICAL HISTORY: fall, c spine pain; r/o Fx COMPARISON STUDY: MRI of the cervical spine February 12, 2021. CT of the cervical spinal April 17, 2021. TECHNIQUE: Helical axial images of the cervical spine were obtained without IV contrast. Sagittal a nd coronal reconstructions were viewed. Automated exposure control was utilized for the study. A do se lowering technique was utilized adhering to the principles of ALARA. FINDINGS: Mastoid effusions are unchanged. Postoperative findings consistent with C4-C5 anterior disc ectomy and fusion are unchanged. No acute cervical spinal fracture is noted. Severe multilevel facet arthrosis is present. There is moderate multilevel disc space narrowing with osteophytosis. The appea baldev of the cervical spine is unchanged. IMPRESSION: 1. No acute cervical spine fracture or subluxation. 2. No change in appearance of the cervical spine. Status post C4-C5 anterior discectomy and fusion. 3. Moderate to severe multilevel degenerative changes within the cervical spine. ACT 112: Negative or not required by law. Electronically signed by: John Paul Drummond M.D. 07/31/2021 11:13 AM
[2021-07-31 12:08] LABS: Appearance Urine Clear (Clear); Bacteria Urine Automated Negative (Negative); Blood Urine Negative (Negative); Cast Urine Automated 0 /lpf (0-5); Color Urine Dark Yellow; Epithelial Cell Urine Auto 0-5 /lpf (0-5); Glucose Urine UA Negative (Negative); Ketones Urine Trace (Negative); Leukocyte Esterase Urine Negative (Negative); Nitrite Urine Negative (Negative); Protein Urine Trace (Negative); RBC Urine Automated 0-4 /hpf (0-4); Specific Gravity Urine 1.021 (1.000-1.030); Urobilinogen Urine Negative (Negative); WBC Urine Automated 0 /hpf (0-5)
[2021-07-31 12:21] LABS: Bilirubin Urine 1+ (Negative)
[2021-07-31] MEDS ORDERED: ONDANSETRON INJ 2 MG/ML 2 ML VIAL IV PRN (12:50)
[2021-07-31] MEDS ORDERED: oxyCODONE HCL 10 MG TABCR (OxyCONTIN) PO SCH (12:50)
[2021-07-31] MEDS ORDERED: NITROGLYCERIN SL 0.4 MG/TAB TAB SL PRN (12:50)
[2021-07-31] MEDS ORDERED: NON-FORMULARY MEDICATION (Fluticasone-Umeclidin-Vilanter [Trelegy Ellipta] 100-62.5-25 mcg INH SCH (12:50)
--- NOTE | 2021-07-31 13:29 | Emergency Department Note ---
History of Present Illness General Chief complaint: Fall Stated complaint: FALL, WEAKNESS, BACK & R SHOULDER PAIN Time Seen by Provider: 07/31/21 07:10 History of Present Illness Maximum Pain Intensity: 6 This 76-year-old male presents today by ALS ambulance, for evaluation of weakness, right shoulder pain, and low back pain. Patient states he was recently admitted to the hospital for pneumonia. He was discharged on . On Sunday he was sitting on the side of his bed and fell. He was unable to get himself off the floor. He states he was on the floor for approximately 14 h ours. Eventually he was able to Army crawl his way to his lift chair and get himself off the floor. He states he did urinate on the floor. Once he was in his chair, he was not able to get up. His son checked on him on Sunday and help get him situated. This morning the patient was unable to get out of his chair again secondary to weakness. Because of this, his son called the ambulance service. Patient denies any nausea or vomiting. He has chronic shortness of breath. He also has chronic chest pain. He has had extensive work-up for his chest pain, including cardiac MRI and a recent [facility] cardiology evaluation. No cause for his chest pain has been found. He also has known chronic troponin elevation. Patient states he has not been drinking much over the last 3 days. He does feel dehydrated. No other complaints. He does have an extensive medical history, including chronic respiratory failure with hypoxia, hypokalemia, history of no recent pneumonia, chronic dyspnea, and a sending aortic aneurysm, chronic constipation, history of prostate cancer, chronically elevated troponins, history of seizures, myocarditis history, anxiety, idiopathic polyneuropathy, chronic neck and low back pain, history of polymyositis, diabetes, elevated lipids, history of gastric bypass, history of aortic valve replacement, CAD, diabetic peripheral neuropathy, chronic headaches, atrial fibrillation, chronic kidney disease stage IIIa, dysphagia, rheumatoid arthritis, interstitial lung disease, anemia, Parkinson's disease, tinea cruris, seizure history, gout, depression, and hypoalbuminemia. Home Medications Medication Instructions Recorded Confirmed Type atorvastatin 40 mg tablet 40 mg PO HS 05/28/20 07/20/21 History gabapentin 300 mg capsule 300 mg PO BID #180 cap 12/28/20 07/20/21 Rx fexofenadine 180 mg tablet 180 mg PO QAM 02/11/21 07/20/21 History (Karlee Allergy) fluticasone fur. 100 mcg-umeclid 1 inh INHALATION QAM 02/11/21 07/20/21 History 62.5 mcg-vilant 25 mcg inhalat.powder (Trelegy Ellipta) allopurinol 100 mg tablet 100 mg QPM 04/10/21 07/20/21 History finasteride 5 mg tablet 5 mg PO QAM 04/28/21 07/20/21 History nitroglycerin 0.4 mg sublingual 0.4 mg SUBLINGUAL Q5M PRN #25 tab 05/05/21 07/20/21 Rx tablet carbidopa 25 mg-levodopa 100 mg 1 tab PO TID 05/24/21 07/20/21 History tablet diclofenac sodium 1 % topical gel 2 g EXT QID #100 g 06/01/21 07/20/21 Rx (Voltaren Arthritis Pain) levetiracetam 500 mg tablet 750 mg PO HS 06/30/21 07/20/21 History levetiracetam 500 mg tablet 1,000 mg PO QAM 06/30/21 07/20/21 History (Keppra) Oxygen Home #1 ea 07/08/21 07/20/21 Rx albuterol sulfate 90 mcg/actuation 2 puff INHALATION Q4H #0 g 07/08/21 07/20/21 Rx aerosol inhaler (Ventolin HFA) insulin aspart U-100 100 unit/mL See Rx Instructions .ROUTE 07/08/21 07/20/21 Rx (3 mL) subcutaneous pen (Novolog .COMPLEX #0 ml Flexpen U-100 Insulin aspart) oxycodone 5 mg tablet 5 mg PO Q4H PRN #30 tab 07/08/21 07/20/21 Rx polyethylene glycol 3350 17 17 g PO BID #0 g 07/08/21 07/20/21 Rx gram/dose oral powder (Miralax) sennosides 8.6 mg tablet (Senokot) 17.2 mg PO BID #0 tab 07/08/21 07/20/21 Rx topiramate 100 mg tablet (Topamax) 100 mg PO BID 30 Days #60 tab 07/12/21 07/20/21 Rx cholecalciferol (vitamin D3) 50 4,000 unit PO HS cap 07/14/21 07/20/21 History mcg (2,000 unit) capsule (Vitamin D3) furosemide 20 mg tablet (Lasix) 20 mg PO DAILY tab 07/14/21 07/20/21 History prednisone 10 mg tablet 10 mg PO DAILY tab 07/14/21 07/20/21 History insulin NPH isoph U-100 human 100 10 unit SUBCUT DAILY 07/26/21 07/26/21 History unit/mL subcutaneous suspension (Novolin N NPH U-100 Insulin isophane) insulin glargine 100 unit/mL (3 20 unit SUBCUT BID 07/26/21 07/26/21 History mL) subcutaneous pen (Lantus Solostar U-100 Insulin) oxycodone 10 mg tablet,crush 10 mg PO Q12H #20 tab 07/28/21 Rx resistant,extended release 12 hr (OxyContin) umeclidinium 62.5 mcg-vilanterol 1 ea INHALATION DAILY #60 ea 07/28/21 Rx 25 mcg/actuation powdr for inhalation (Anoro Ellipta) warfarin 5 mg tablet 5 mg PO HS #30 tab 07/28/21 Rx Allergies Allergy/AdvReac Type Severity Reaction Status Date / Time Iodinated Contrast Media Allergy Severe Anaphylaxis Verified 07/20/21 22:44 shellfish derived Allergy Severe Anaphylaxis Verified 07/20/21 22:44 tamsulosin [From Flomax] Allergy Intermediate Itching Verified 07/20/21 22:44 Tetanus Vaccines and Toxoid Allergy Unknown Unknown Verified 07/20/21 22:44 Past Med/Surg History Medical History Abnormal CT scan, chest Acute hyperglycemia Acute left-sided muscle weakness Anemia Aspiration pneumonia CAD (coronary artery disease) Chronic dyspnea Chronic pulmonary aspiration Dehydration Diabetes Fall HLD (hyperlipidemia) Hypoxia Interstitial lung disease due to connective tissue disease Non-ST elevation CT (NSTEMI) Polymyositis Prostate cancer s/p XRT Rheumatoid arthritis Stroke-like symptom 12/2019, w/ blurry vision and dysarthria. mild R sided wkness. attending outpatient physical therapy w/ good improvement in strength (5+/5 strength of all 4 extremities as of 05/28/20) Subtherapeutic international normalized ratio (INR) Syncope Thoracic ascending aortic aneurysm s/p repair Weakness Surgical History H/O hernia repair History of aortic valve replacement mechanical History of cholecystectomy History of fusion of cervical spine History of gastric bypass lap band History of heart artery stent History of lung biopsy 2019 History of partial nephrectomy Family History Mother , age 87 of pulmonary issues Rheumatoid arthritis Father , in his mid 80s of a stroke Stroke Other Coronary heart disease Social History Smoking Status: Never smoker Second Hand Exposure: No; Hx Alcohol Use: No Hx Substance Use: No Preferred Language: Syrian Communication Ability: Effective Hearing Ability: Hard of Hearing Volunteer Services Specialist Required: No Beliefs That Will Affect Care: None marital status: / Current Living Situation: Alone Current Living Situation Comment: lives alone in a one story house in [place] current occupational status: retired 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 How many Children do You have: 1 How many Children do You have Comment: son Other Information That Helps Us Care for You: No Feels Safe at Home: Yes Safety Concerns: Feels Safe At This Time Assistive Devices: Glasses and Oxygen - at Night Review of Systems A total of 10 systems reviewed and were otherwise negative Physical Exam Vital Signs Vital Signs - 24 hr 07/31/21 19:09 07/31/21 19:16 07/31/21 22:31 Temperature 36.5 C Temperature Source Oral Pulse Rate Pulse Rate [Apical] 80 69 Pulse Strength [Apical] Respiratory Rate 18 20 Respiratory Effort / Characteristics Non-Labored Spontaneous Spontaneous SOB on Exertion Respiratory Depth Normal Respiratory Pattern Regular Blood Pressure [Right Arm] 97/57 L Blood Pressure Mean [Right Arm] 70 Blood Pressure Position [Right Arm] Lying Pulse Oximetry 97 92 Oxygen Delivery Method Room Air Room Air Nasal Cannula Oxygen Flow Rate 2 07/31/21 23:26 08/01/21 01:01 08/01/21 03:21 Temperature 36.4 C L 36.5 C Temperature Source Oral Oral Pulse Rate 71 Pulse Rate [Apical] 58 L 63 Pulse Strength [Apical] Respiratory Rate 16 16 Respiratory Effort / Characteristics Respiratory Depth Respiratory Pattern Blood Pressure [Right Arm] 105/56 L 101/56 L Blood Pressure Mean [Right Arm] 72 71 Blood Pressure Position [Right Arm] Lying Lying Pulse Oximetry 97 96 Oxygen Delivery Method Nasal Cannula Nasal Cannula Oxygen Flow Rate 2.0 2.0 08/01/21 06:59 08/01/21 07:34 08/01/21 11:22 Temperature 36.6 C Temperature Source Oral Pulse Rate Pulse Rate [Apical] 57 L 58 L 83 Pulse Strength [Apical] Respiratory Rate 18 16 16 Respiratory Effort / Characteristics Non-Labored Spontaneous Non-Labored Spontaneous Respiratory Depth Respiratory Pattern Blood Pressure [Right Arm] 114/63 Blood Pressure Mean [Right Arm] 80 Blood Pressure Position [Right Arm] Lying Pulse Oximetry 95 93 98 Oxygen Delivery Method Nasal Cannula Room Air Room Air Oxygen Flow Rate 2 08/01/21 11:27 Temperature 36.7 C Temperature Source Oral Pulse Rate Pulse Rate [Apical] 83 Pulse Strength [Apical] Normal Respiratory Rate 16 Respiratory Effort / Characteristics Respiratory Depth Normal Respiratory Pattern Blood Pressure [Right Arm] 114/63 Blood Pressure Mean [Right Arm] 80 Blood Pressure Position [Right Arm] Pulse Oximetry 98 Oxygen Delivery Method Room Air Oxygen Flow Rate General: Well-developed, well-nourished, obese elderly white male, in no acute distress. Laying on the bed. Alert and oriented. Somewhat somnolent. Falls asleep while I am speaking with him. Skin: Warm and dry with good turgor. No rashes or lesions. No erythema. There is bruising present on his arms. The patient is not diaphoretic. No abrasions. Scars present on his abdomen. HEENT: Normocephalic atraumatic. Eyes PERRLA, EOMI. No conjunctiva or scleral injection. Ears TMs intact bilaterally with good light reflexes. No erythema or bulging. No hemotympanum. Canals are patent. Nares patent bilaterally without turbinate enlargement. No significant drainage. No epistaxis. Oropharynx without erythema or exudate. Uvula midline, oral mucosa moist. No lesions present. Poor dentition. Heart: Heart RRR. No MGR. No carotid bruit. Peripheral pulses are 2+. Lungs: Lungs are clear to auscultation. No crackles rhonchi or wheezing. Good air movement. The patient is able to take a deep breath. Abdomen: Abdomen was inspected, auscultated, and palpated. Obese. Bowel sounds present x 4. Soft, nontender to palpation. No hepato-splenomegaly. No masses noted. No rebound. Musculoskeletal: Gross motor function of the upper and lower extremities is intact and unremarkable. He has no discomfort with logrolling of his hips. Supple motion of his knees and ankles. He is able to perform straight leg raise independently with both lower extremities. He is able to raise both arms. Supple motion of both shoulders, elbows, and wrists. He does complain of right shoulder pain with motion. It is primarily over the AC joint. He does complain of some discomfort with palpation over the glenohumeral joint both anteriorly and posteriorly. Pain extends into the right trapezius. He has no discomfort with palpation over his cervical spine. There is no deformity of his lumbar spine. He does complain of discomfort with palpation over the vertebral bodies and disc spaces from L2 through the sacrum. Neurologic: Gross sensation is intact across the upper and lower extremities by soft touch. Course Administered Medications Acetaminophen (Acetaminophen 325 Mg Tab) 650 mg PO Q4H PRN PRN Reason: Pain or Fever Stop: 08/30/21 12:49 Last Admin: 08/02/21 23:40 Dose: 650 mg Documented by: [id number] Admin: 08/02/21 03:25 Dose: 650 mg Documented by: [id number] Albuterol (Albuterol Hfa 8 Gm Inhaler) 2 puffs INH QIDR KIRSTEN Stop: 08/30/21 14:59 Last Admin: 08/02/21 18:57 Dose: 2 puffs Documented by: [id number] Admin: 08/02/21 15:27 Dose: 2 puffs Documented by: [id number] Admin: 08/02/21 13:45 Dose: Not Given Documented by: [id number] Admin: 08/02/21 11:13 Dose: 2 puffs Documented by: [id number] Admin: 08/02/21 07:24 Dose: 2 puffs Documented by: [id number] Admin: 08/01/21 20:18 Dose: 2 puffs Documented by: [id number] Admin: 08/01/21 15:40 Dose: 2 puffs Documented by: [id number] Admin: 08/01/21 11:21 Dose: 2 puffs Documented by: [id number] Admin: 08/01/21 07:34 Dose: 2 puffs Documented by: [id number] Admin: 07/31/21 19:09 Dose: 2 puffs Documented by: [id number] Admin: 07/31/21 15:19 Dose: 2 puffs Documented by: [id number] Admin: 07/31/21 13:37 Dose: Not Given Documented by: [id number] Admin: 07/31/21 13:33 Dose: 2 puffs Documented by: [id number] Allopurinol (Allopurinol 100 Mg Tab) 100 mg PO QPM KIRSTEN Stop: 08/30/21 20:59 Last Admin: 08/02/21 19:49 Dose: 100 mg Documented by: [id number] Admin: 08/01/21 20:03 Dose: 100 mg Documented by: [id number] Admin: 07/31/21 20:02 Dose: 100 mg Documented by: [id number] Atorvastatin Calcium (Atorvastatin 40 Mg Tab) 40 mg PO HS KIRSTEN Stop: 08/30/21 20:59 Last Admin: 08/02/21 19:50 Dose: 40 mg Documented by: [id number] Admin: 08/01/21 20:03 Dose: 40 mg Documented by: [id number] Admin: 07/31/21 20:03 Dose: 40 mg Documented by: [id number] Carbidopa/Levodopa (Carbidopa/Levodopa 25/100mg Tab) 1 tab PO TID KIRSTEN Stop: 08/30/21 13:59 Last Admin: 08/02/21 19:50 Dose: 1 tab Documented by: [id number] Admin: 08/02/21 13:45 Dose: Not Given Documented by: [id number] Admin: 08/02/21 07:38 Dose: 1 tab Documented by: [id number] Admin: 08/01/21 20:03 Dose: 1 tab Documented by: [id number] Admin: 08/01/21 14:04 Dose: 1 tab Documented by: [id number] Admin: 08/01/21 08:07 Dose: 1 tab Documented by: [id number] Admin: 07/31/21 20:06 Dose: 1 tab Documented by: [id number] Admin: 07/31/21 14:38 Dose: 1 tab Documented by: [id number] Finasteride (Finasteride 5 Mg Tab) 5 mg PO QAM KIRSTEN Stop: 08/31/21 08:59 Last Admin: 08/02/21 07:38 Dose: 5 mg Documented by: [id number] Admin: 08/01/21 08:07 Dose: 5 mg Documented by: [id number] Fluticasone Furoate (Fluticasone Furoate 100mcg 14 Puffs/Inhaler) 1 puffs INH DAILY [facility] Stop: 08/30/21 13:44 Last Admin: 08/02/21 07:39 Dose: 1 puffs Documented by: [id number] Admin: 08/01/21 08:08 Dose: 1 puffs Documented by: [id number] Admin: 07/31/21 14:41 Dose: 1 puffs Documented by: [id number] Insulin Aspart (Insulin Aspart Per Unit) 0 units SC ACHS [facility] Stop: 08/31/21 11:29 Last Admin: 08/02/21 20:07 Dose: 11 units Documented by: [id number] Cosigned by: [id number] Admin: 08/02/21 17:28 Dose: 17 units Documented by: [id number] Cosigned by: [id number] Admin: 08/02/21 13:03 Dose: Not Given Documented by: [id number] Admin: 08/02/21 07:41 Dose: Not Given Documented by: [id number] Admin: 08/01/21 21:33 Dose: Not Given Documented by: [id number] Admin: 08/01/21 17:06 Dose: 9 units Documented by: [id number] Cosigned by: [id number] Admin: 08/01/21 14:56 Dose: Not Given Documented by: [id number] Insulin Glargine (Insulin Glargine Solostar 100 Units/Ml 3 Ml Pen) 15 units SQ QAM [facility] Stop: 09/01/21 08:59 Last Admin: 08/02/21 10:40 Dose: 15 units Documented by: [id number] Cosigned by: [id number] Insulin Glargine (Insulin Glargine Solostar 100 Units/Ml 3 Ml Pen) 0 units SQ HS [facility]; Protocol Stop: 09/01/21 20:59 Last Admin: 08/02/21 20:07 Dose: 8 units Documented by: [id number] Cosigned by: [id number] Levetiracetam (Levetiracetam 250 Mg Tab) 750 mg PO HS KIRSTEN Stop: 08/30/21 20:59 Last Admin: 08/02/21 19:49 Dose: 750 mg Documented by: [id number] Admin: 08/01/21 20:03 Dose: 750 mg Documented by: [id number] Admin: 07/31/21 20:22 Dose: 750 mg Documented by: [id number] Levetiracetam (Levetiracetam 500 Mg Tab) 1,000 mg PO QAM KIRSTEN Stop: 08/30/21 13:44 Last Admin: 08/02/21 07:38 Dose: 1,000 mg Documented by: [id number] Admin: 08/01/21 09:46 Dose: 1,000 mg Documented by: [id number] Admin: 07/31/21 14:41 Dose: 1,000 mg Documented by: [id number] Nystatin (Nystatin Susp 500,000 U/5 Ml Ud) 5 ml PO QID [facility] Stop: 08/10/21 12:59 Last Admin: 08/02/21 19:49 Dose: 5 ml Documented by: [id number] Admin: 08/02/21 17:55 Dose: 5 ml Documented by: [id number] Admin: 08/02/21 13:10 Dose: 5 ml Documented by: [id number] Admin: 08/02/21 07:39 Dose: 5 ml Documented by: [id number] Admin: 08/01/21 20:03 Dose: 5 ml Documented by: [id number] Admin: 08/01/21 16:50 Dose: 5 ml Documented by: [id number] Admin: 08/01/21 14:04 Dose: 5 ml Documented by: [id number] Admin: 08/01/21 08:08 Dose: 5 ml Documented by: [id number] Admin: 07/31/21 20:21 Dose: 5 ml Documented by: [id number] Admin: 07/31/21 17:03 Dose: 5 ml Documented by: [id number] Admin: 07/31/21 14:39 Dose: 5 ml Documented by: [id number] Oxycodone HCl (Oxycodone Hcl Ir 5 Mg Tab (Immediate Release)) 5 mg PO Q4H PRN PRN Reason: pain Stop: 08/14/21 12:49 Last Admin: 08/02/21 19:57 Dose: 5 mg Documented by: [id number] Polyethylene Glycol (Polyethylene (Miralax) 17 Gm Pack) 17 gm PO BID KIRSTEN Stop: 08/30/21 20:59 Last Admin: 08/02/21 19:49 Dose: 17 gm Documented by: [id number] Admin: 08/02/21 07:39 Dose: 17 gm Documented by: [id number] Admin: 08/01/21 20:04 Dose: Not Given Documented by: [id number] Admin: 08/01/21 07:58 Dose: Not Given Documented by: [id number] Admin: 07/31/21 20:26 Dose: Not Given Documented by: [id number] Prednisone (Prednisone 10 Mg Tablet) 10 mg PO QAM KIRSTEN Stop: 09/01/21 08:59 Last Admin: 08/02/21 07:40 Dose: 10 mg Documented by: [id number] Sennosides (Senna 8.6 Mg Tab) 17.2 mg PO BID KIRSTEN Stop: 08/30/21 20:59 Last Admin: 08/02/21 19:49 Dose: 17.2 mg Documented by: [id number] Admin: 08/02/21 07:39 Dose: 17.2 mg Documented by: [id number] Admin: 08/01/21 20:04 Dose: 17.2 mg Documented by: [id number] Admin: 08/01/21 08:57 Dose: Not Given Documented by: [id number] Admin: 07/31/21 20:24 Dose: 17.2 mg Documented by: [id number] Topiramate (Topiramate 100 Mg Tab) 100 mg PO BID KIRSTEN Stop: 08/30/21 13:44 Last Admin: 08/02/21 19:50 Dose: 100 mg Documented by: [id number] Admin: 08/02/21 07:38 Dose: 100 mg Documented by: [id number] Admin: 08/01/21 20:04 Dose: 100 mg Documented by: [id number] Admin: 08/01/21 08:57 Dose: 100 mg Documented by: [id number] Admin: 07/31/21 20:23 Dose: 100 mg Documented by: [id number] Admin: 07/31/21 14:38 Dose: 100 mg Documented by: [id number] Umeclidinium/Vilanterol (Umeclidinium/Vilanterol 62.5/25mcg 7 Puffs/Inhaler) 1 puffs INH DAILY KIRSTEN Stop: 08/30/21 13:44 Last Admin: 08/02/21 07:40 Dose: 1 puffs Documented by: [id number] Admin: 08/01/21 08:08 Dose: 1 puffs Documented by: [id number] Admin: 07/31/21 14:40 Dose: 1 puffs Documented by: [id number] Vitamin D (Cholecalciferol 1,000 Units 25 Mcg Tab) 4,000 units PO HS KIRSTEN Stop: 08/30/21 20:59 Last Admin: 08/02/21 19:49 Dose: 4,000 units Documented by: [id number] Admin: 08/01/21 20:03 Dose: 4,000 units Documented by: [id number] Admin: 07/31/21 20:08 Dose: 4,000 units Documented by: [id number] Warfarin Sodium (Warfarin Sod 5 Mg Tab) 5 mg PO 1600 KIRSTEN Stop: 08/30/21 15:59 Last Admin: 07/31/21 14:40 Dose: 5 mg Documented by: [id number] Discontinued Medications Dexamethasone (Dexamethasone Sod Inj 4 Mg/Ml Vial) 10 mg IV NOW STA Stop: 07/31/21 10:35 Last Admin: 07/31/21 11:04 Dose: 10 mg Documented by: [id number] Diphenhydramine HCl (Diphenhydramine Capsule 25 Mg Cap) 50 mg PO 2100 ONE Stop: 08/01/21 21:01 Last Admin: 08/01/21 20:10 Dose: 50 mg Documented by: [id number] Gadobutrol (Gadobutrol 65ml Vial) 10.5 ml IV ONCE ONE Stop: 08/01/21 23:22 Last Admin: 08/01/21 23:22 Dose: 10.5 ml Documented by: [id number] Sodium Chloride (Nss 1000ml) 1,000 mls @ 75 mls/hr IV .[id number] KIRSTEN Stop: 08/30/21 07:29 Last Infusion: 08/02/21 06:16 Dose: 0 mls/hr Documented by: [id number] Admin: 08/01/21 20:30 Dose: 75 mls/hr Documented by: [id number] Infusion: 08/01/21 20:30 Dose: 75 mls/hr Documented by: [id number] Admin: 08/01/21 07:48 Dose: 75 mls/hr Documented by: [id number] Infusion: 08/01/21 07:47 Dose: 0 mls/hr Documented by: [id number] Admin: 07/31/21 23:38 Dose: 125 mls/hr Documented by: [id number] Infusion: 07/31/21 23:38 Dose: 125 mls/hr Documented by: [id number] Admin: 07/31/21 17:03 Dose: 125 mls/hr Documented by: [id number] Infusion: 07/31/21 16:26 Dose: 125 mls/hr Documented by: [id number] Admin: 07/31/21 08:26 Dose: 125 mls/hr Documented by: [id number] Insulin Human Regular 250 (units/ Sodium Chloride) 250 mls @ 0 mls/hr IV .Q0M [facility]; Protocol Stop: 08/31/21 11:29 Last Titration: 08/02/21 21:20 Dose: 0 units/hr, 0 mls/hr Documented by: [id number] Cosigned by: [id number] Admin: 08/02/21 13:31 Dose: Not Given Documented by: [id number] Titration: 08/02/21 13:09 Dose: 0 units/hr, 0 mls/hr Documented by: [id number] Cosigned by: [id number] Titration: 08/02/21 06:14 Dose: 3.4 units/hr, 3.4 mls/hr Documented by: [id number] Cosigned by: [id number] Titration: 08/02/21 05:20 Dose: 4.2 units/hr, 4.2 mls/hr Documented by: [id number] Cosigned by: [id number] Titration: 08/02/21 04:16 Dose: 0 units/hr, 0 mls/hr Documented by: [id number] Cosigned by: [id number] Titration: 08/02/21 03:31 Dose: 3.5 units/hr, 3.5 mls/hr Documented by: [id number] Cosigned by: [id number] Titration: 08/02/21 02:43 Dose: 4.4 units/hr, 4.4 mls/hr Documented by: [id number] Cosigned by: [id number] Titration: 08/02/21 01:00 Dose: 5.5 units/hr, 5.5 mls/hr Documented by: [id number] Cosigned by: [id number] Titration: 08/02/21 00:17 Dose: 5.5 units/hr, 5.5 mls/hr Documented by: [id number] Cosigned by: [id number] Titration: 08/02/21 00:17 Dose: 5.5 units/hr, 5.5 mls/hr Documented by: [id number] Cosigned by: [id number] Titration: 08/01/21 23:20 Dose: 0 units/hr, 0 mls/hr Documented by: [id number] Cosigned by: [id number] Titration: 08/01/21 22:00 Dose: 9.2 units/hr, 9.2 mls/hr Documented by: [id number] Cosigned by: [id number] Titration: 08/01/21 21:00 Dose: 9.2 units/hr, 9.2 mls/hr Documented by: [id number] Cosigned by: [id number] Titration: 08/01/21 20:00 Dose: 9.2 units/hr, 9.2 mls/hr Documented by: [id number] Cosigned by: [id number] Titration: 08/01/21 19:24 Dose: 7.7 units/hr, 7.7 mls/hr Documented by: [id number] Cosigned by: [id number] Titration: 08/01/21 18:14 Dose: 5.5 units/hr, 5.5 mls/hr Documented by: [id number] Cosigned by: [id number] Titration: 08/01/21 17:02 Dose: 4.6 units/hr, 4.6 mls/hr Documented by: [id number] Cosigned by: [id number] Titration: 08/01/21 16:02 Dose: 3.8 units/hr, 3.8 mls/hr Documented by: [id number] Cosigned by: [id number] Admin: 08/01/21 14:55 Dose: 2.7 units/hr, 2.7 mls/hr Documented by: [id number] Cosigned by: [id number] Insulin Aspart (Insulin Aspart Per Unit) 0 units SC ACHS KIRSTEN Stop: 08/30/21 12:49 Last Admin: 08/01/21 20:46 Dose: Not Given Documented by: [id number] Admin: 08/01/21 08:07 Dose: 22 units Documented by: [id number] Cosigned by: [id number] Admin: 07/31/21 21:46 Dose: 8 units Documented by: [id number] Cosigned by: [id number] Admin: 07/31/21 17:04 Dose: 22 units Documented by: [id number] Cosigned by: [id number] Admin: 07/31/21 14:15 Dose: 2 units Documented by: [id number] Cosigned by: [id number] Insulin Glargine (Insulin Glargine Solostar 100 Units/Ml 3 Ml Pen) 20 units SQ BID [facility] Stop: 08/30/21 20:59 Last Admin: 07/31/21 21:47 Dose: 20 units Documented by: [id number] Cosigned by: [id number] Insulin Glargine (Insulin Glargine Solostar 100 Units/Ml 3 Ml Pen) 30 units SQ BID KIRSTEN Stop: 08/31/21 08:59 Last Admin: 08/01/21 08:08 Dose: 30 units Documented by: [id number] Cosigned by: [id number] Insulin Human NPH (Insulin Human Nph) 10 units SC TODAY@0900 ONE Stop: 08/02/21 09:01 Last Admin: 08/02/21 10:40 Dose: 10 units Documented by: [id number] Cosigned by: [id number] Miscellaneous (Insulin Protocol Goal Range ) 1 ea N/A ONE ONE Stop: 08/01/21 11:27 Last Admin: 08/01/21 14:57 Dose: 1 ea Documented by: [id number] Miscellaneous (Moderate Stress Level ) 1 ea N/A ONE ONE Stop: 08/01/21 11:27 Last Admin: 08/01/21 14:57 Dose: 1 ea Documented by: [id number] Miscellaneous (Stat Iv Infusion Titration Per Protocol) 1 ea N/A NOW STA Stop: 08/01/21 11:27 Last Admin: 08/01/21 14:57 Dose: 1 ea Documented by: [id number] Miscellaneous (Pending Order: May Dc Insulin Drip If...) 1 ea N/A Q4 KIRSTEN Stop: 09/01/21 11:59 Last Admin: 08/02/21 13:45 Dose: 1 ea Documented by: [id number] Admin: 08/02/21 13:09 Dose: 1 ea Documented by: [id number] Miscellaneous Information (Dc All Previously Ordered Diabetes Meds) 1 ea N/A ONE ONE Stop: 08/01/21 11:27 Last Admin: 08/01/21 14:57 Dose: 1 ea Documented by: [id number] Oxycodone HCl (Oxycodone Hcl 10 Mg Tabcr (Oxycontin)) 10 mg PO Q12H [facility] Stop: 08/14/21 12:49 Last Admin: 07/31/21 14:37 Dose: Not Given Documented by: [id number] Oxycodone HCl (Oxycodone Hcl 10 Mg Tabcr (Oxycontin)) 10 mg PO BID KIRSTEN Stop: 08/14/21 20:59 Last Admin: 08/02/21 07:44 Dose: 10 mg Documented by: [id number] Admin: 08/01/21 20:10 Dose: 10 mg Documented by: [id number] Admin: 08/01/21 08:08 Dose: 10 mg Documented by: [id number] Admin: 07/31/21 21:45 Dose: 10 mg Documented by: [id number] Prednisone (Prednisone 20 Mg Tab) 60 mg PO QAM KIRSTEN Stop: 08/31/21 08:59 Last Admin: 08/01/21 08:57 Dose: 60 mg Documented by: [id number] Prednisone (Prednisone 50 Mg Tab) 50 mg PO 1500 ONE Stop: 08/01/21 15:01 Last Admin: 08/01/21 14:04 Dose: 50 mg Documented by: [id number] Prednisone (Prednisone 50 Mg Tab) 50 mg PO [address] ONE Stop: 08/01/21 21:01 Last Admin: 08/01/21 20:04 Dose: 50 mg Documented by: [id number] Medical Decision Making Differential Diagnosis Fall at home, rhabdomyolysis, intracranial bleed, spinal fracture, long bone fracture, contusion, dehydration, ACS, acute CT, sepsis, dizziness, electrolyte abnormality Medical Records Attestation: I reviewed the patient's medical records. Home Medications Current Medication List: was personally reviewed by me Laboratory Data CBC, chemistry panel, INR, troponin, BNP, magnesium, and total CK were obtained. CBC shows a mild anemia with an H&H of 12.3 and 39.1. Platelets are 155,000. INR is elevated at 2.5. Complete metabolic panel shows normal electrolytes. He does appear to be dry with an elevated BUN and creatinine of 40 and 1.63. These are higher than his normal values. Glucose is elevated at 262. LFTs are unremarkable. His troponin is significantly elevated at 41.64. He does have a chronically elevated troponin, though they are mostly in the low to mid 30s. I suspect it is also elevated because of dehydration. Magnesium is 1.9, total CK 54, and BNP 95. These are all normal. Nasal swab is negative for influenza A, influenza B, RSV, and Covid. UA shows trace ketones, 1+ bilirubin, and no bact eria. Result diagrams: 08/02/21 06:52 08/02/21 06:52 Lab Results 07/31/21 07/31/21 07/31/21 Range/Units 07:30 07:30 07:30 WBC 6.86 (4.8-10.8) K/uL RBC 4.52 L (4.7-6.1) M/uL Hgb 12.3 L (14.0-18.0) g/dL Hct 39.1 L (42-52) % MCV 86.5 (80-100) fL MCH 27.2 (25-34) pg MCHC 31.5 L (32-36) g/dL RDW Std Deviation 59.8 H (36.4-46.3) fL RDW Coeff of Lianne 18.8 H (11.5-14.5) % Plt Count 155 (130-400) K/uL MPV 9.9 (7.4-10.4) fL Immature Gran % (Auto) 1.2 % Neut % (Auto) 77.3 % Lymph % (Auto) 15.0 % [place] % (Auto) 4.7 % Eos % (Auto) 1.5 % Baso % (Auto) 0.3 % Neut # (Auto) 5.31 (1.4-6.5) K/uL Lymph # (Auto) 1.03 L (1.2-3.4) K/uL [place] # (Auto) 0.32 (0.11-0.59) K/uL Eos # (Auto) 0.10 (0-0.5) K/uL Baso # (Auto) 0.02 (0-0.2) K/uL Immature Gran # (Auto) 0.08 H (0.00-0.02) K/uL PT 25.0 H (9.0-12.0) Seconds INR 2.5 H (0.9-1.1) Sodium 138 (136-145) mmol/L Potassium 3.8 (3.5-5.1) mmol/L Chloride 107 (98-107) mmol/L Carbon Dioxide 21 (21-32) mmol/L Anion Gap 10 (3-11) BUN 40 H (6-23) mg/dl Creatinine 1.63 H (0.6-1.4) mg/dl Est Cr Clr Drug Dosing 42.3 ml/min Est GFR ( Amer) 46.7 ml/min Est GFR (Non-Af Amer) 40.3 ml/min BUN/Creatinine Ratio 24.5 H (10-20) Glucose 262 H (70-99(Fasting)) mg/dl POC Glucose (70-99) mg/dl Calcium 9.4 (8.5-10.1) mg/dl Magnesium (1.7-2.4) mg/dl Total Bilirubin 0.7 (0.2-1.0) mg/dl AST 12 L (13-39) U/L ALT 5 L (7-52) U/L Alkaline Phosphatase 57 (34-104) U/L Total Creatine Kinase (30-223) U/L Troponin I 41.64 H* (0-0.04) ng/ml C-Reactive Protein (0-0.5) mg/dl B-Natriuretic Peptide (0-100) pg/ml Total Protein 6.0 (6.0-8.3) gm/dl Albumin 3.6 (3.4-5.0) gm/dl Globulin 2.4 L (2.5-4.0) gm/dl Albumin/Globulin Ratio 1.5 (0.9-2) Urine Color Urine Appearance (Clear) Urine pH (4.5-7.5) Ur Specific [place] (1.000-1.030) Urine Protein (Negative) Urine Glucose (UA) (Negative) Urine Ketones (Negative) Urine Blood (Negative) Urine Nitrite (Negative) Urine Bilirubin (Negative) Urine Urobilinogen (Negative) Ur Leukocyte Esterase (Negative) Urine WBC (Auto) (0-5) /hpf Urine RBC (Auto) (0-4) /hpf U Hyaline Cast (Auto) (0-5) /lpf U Epithel Cells (Auto) (0-5) /lpf Urine Bacteria (Auto) (Negative) Influ A Molecular Assay (Negative) Influ B Molecular Assay (Negative) RSV (Molecular) (Negative) SARS-CoV-2, RNA, NAAT (NEGATIVE) 07/31/21 07/31/21 07/31/21 Range/Units 07:30 08:00 08:24 WBC (4.8-10.8) K/uL RBC (4.7-6.1) M/uL Hgb (14.0-18.0) g/dL Hct (42-52) % MCV (80-100) fL MCH (25-34) pg MCHC (32-36) g/dL RDW Std Deviation (36.4-46.3) fL RDW Coeff of Lianne (11.5-14.5) % Plt Count (130-400) K/uL MPV (7.4-10.4) fL Immature Gran % (Auto) % Neut % (Auto) % Lymph % (Auto) % [place] % (Auto) % Eos % (Auto) % Baso % (Auto) % Neut # (Auto) (1.4-6.5) K/uL Lymph # (Auto) (1.2-3.4) K/uL [place] # (Auto) (0.11-0.59) K/uL Eos # (Auto) (0-0.5) K/uL Baso # (Auto) (0-0.2) K/uL Immature Gran # (Auto) (0.00-0.02) K/uL PT (9.0-12.0) Seconds INR (0.9-1.1) Sodium (136-145) mmol/L Potassium (3.5-5.1) mmol/L Chloride (98-107) mmol/L Carbon Dioxide (21-32) mmol/L Anion Gap (3-11) BUN (6-23) mg/dl Creatinine (0.6-1.4) mg/dl Est Cr Clr Drug Dosing ml/min Est GFR ( Amer) ml/min Est GFR (Non-Af Amer) ml/min BUN/Creatinine Ratio (10-20) Glucose (70-99(Fasting)) mg/dl POC Glucose (70-99) mg/dl Calcium (8.5-10.1) mg/dl Magnesium 1.9 (1.7-2.4) mg/dl Total Bilirubin (0.2-1.0) mg/dl AST (13-39) U/L ALT (7-52) U/L Alkaline Phosphatase (34-104) U/L Total Creatine Kinase 54 (30-223) U/L Troponin I (0-0.04) ng/ml C-Reactive Protein (0-0.5) mg/dl B-Natriuretic Peptide 95 (0-100) pg/ml Total Protein (6.0-8.3) gm/dl Albumin (3.4-5.0) gm/dl Globulin (2.5-4.0) gm/dl Albumin/Globulin Ratio (0.9-2) Urine Color Urine Appearance (Clear) Urine pH (4.5-7.5) Ur Specific [place] (1.000-1.030) Urine Protein (Negative) Urine Glucose (UA) (Negative) Urine Ketones (Negative) Urine Blood (Negative) Urine Nitrite (Negative) Urine Bilirubin (Negative) Urine Urobilinogen (Negative) Ur Leukocyte Esterase (Negative) Urine WBC (Auto) (0-5) /hpf Urine RBC (Auto) (0-4) /hpf U Hyaline Cast (Auto) (0-5) /lpf U Epithel Cells (Auto) (0-5) /lpf Urine Bacteria (Auto) (Negative) Influ A Molecular Assay (Negative) Influ B Molecular Assay (Negative) RSV (Molecular) (Negative) SARS-CoV-2, RNA, NAAT NEGATIVE (NEGATIVE) 07/31/21 07/31/21 07/31/21 Range/Units 10:43 11:52 12:39 WBC (4.8-10.8) K/uL RBC (4.7-6.1) M/uL Hgb (14.0-18.0) g/dL Hct (42-52) % MCV (80-100) fL MCH (25-34) pg MCHC (32-36) g/dL RDW Std Deviation (36.4-46.3) fL RDW Coeff of Lianne (11.5-14.5) % Plt Count (130-400) K/uL MPV (7.4-10.4) fL Immature Gran % (Auto) % Neut % (Auto) % Lymph % (Auto) % [place] % (Auto) % Eos % (Auto) % Baso % (Auto) % Neut # (Auto) (1.4-6.5) K/uL Lymph # (Auto) (1.2-3.4) K/uL [place] # (Auto) (0.11-0.59) K/uL Eos # (Auto) (0-0.5) K/uL Baso # (Auto) (0-0.2) K/uL Immature Gran # (Auto) (0.00-0.02) K/uL PT (9.0-12.0) Seconds INR (0.9-1.1) Sodium (136-145) mmol/L Potassium (3.5-5.1) mmol/L Chloride (98-107) mmol/L Carbon Dioxide (21-32) mmol/L Anion Gap (3-11) BUN (6-23) mg/dl Creatinine (0.6-1.4) mg/dl Est Cr Clr Drug Dosing ml/min Est GFR ( Amer) ml/min Est GFR (Non-Af Amer) ml/min BUN/Creatinine Ratio (10-20) Glucose (70-99(Fasting)) mg/dl POC Glucose 216 H (70-99) mg/dl Calcium (8.5-10.1) mg/dl Magnesium (1.7-2.4) mg/dl Total Bilirubin (0.2-1.0) mg/dl AST (13-39) U/L ALT (7-52) U/L Alkaline Phosphatase (34-104) U/L Total Creatine Kinase (30-223) U/L Troponin I (0-0.04) ng/ml C-Reactive Protein (0-0.5) mg/dl B-Natriuretic Peptide (0-100) pg/ml Total Protein (6.0-8.3) gm/dl Albumin (3.4-5.0) gm/dl Globulin (2.5-4.0) gm/dl Albumin/Globulin Ratio (0.9-2) Urine Color Dark Yellow Urine Appearance Clear (Clear) Urine pH 5.0 (4.5-7.5) Ur Specific [place] 1.021 (1.000-1.030) Urine Protein Trace H (Negative) Urine Glucose (UA) Negative (Negative) Urine Ketones Trace H (Negative) Urine Blood Negative (Negative) Urine Nitrite Negative (Negative) Urine Bilirubin 1+ H (Negative) Urine Urobilinogen Negative (Negative) Ur Leukocyte Esterase Negative (Negative) Urine WBC (Auto) 0 (0-5) /hpf Urine RBC (Auto) 0-4 (0-4) /hpf U Hyaline Cast (Auto) 0 (0-5) /lpf U Epithel Cells (Auto) 0-5 (0-5) /lpf Urine Bacteria (Auto) Negative (Negative) Influ A Molecular Assay Negative (Negative) Influ B Molecular Assay Negative (Negative) RSV (Molecular) Negative (Negative) SARS-CoV-2, RNA, NAAT (NEGATIVE) 07/31/21 07/31/21 07/31/21 Range/Units 13:55 16:07 16:08 WBC (4.8-10.8) K/uL RBC (4.7-6.1) M/uL Hgb (14.0-18.0) g/dL Hct (42-52) % MCV (80-100) fL MCH (25-34) pg MCHC (32-36) g/dL RDW Std Deviation (36.4-46.3) fL RDW Coeff of Lianne (11.5-14.5) % Plt Count (130-400) K/uL MPV (7.4-10.4) fL Immature Gran % (Auto) % Neut % (Auto) % Lymph % (Auto) % [place] % (Auto) % Eos % (Auto) % Baso % (Auto) % Neut # (Auto) (1.4-6.5) K/uL Lymph # (Auto) (1.2-3.4) K/uL [place] # (Auto) (0.11-0.59) K/uL Eos # (Auto) (0-0.5) K/uL Baso # (Auto) (0-0.2) K/uL Immature Gran # (Auto) (0.00-0.02) K/uL PT (9.0-12.0) Seconds INR (0.9-1.1) Sodium (136-145) mmol/L Potassium (3.5-5.1) mmol/L Chloride (98-107) mmol/L Carbon Dioxide (21-32) mmol/L Anion Gap (3-11) BUN (6-23) mg/dl Creatinine (0.6-1.4) mg/dl Est Cr Clr Drug Dosing ml/min Est GFR ( Amer) ml/min Est GFR (Non-Af Amer) ml/min BUN/Creatinine Ratio (10-20) Glucose (70-99(Fasting)) mg/dl POC Glucose 302 H* 323 H* (70-99) mg/dl Calcium (8.5-10.1) mg/dl Magnesium (1.7-2.4) mg/dl Total Bilirubin (0.2-1.0) mg/dl AST (13-39) U/L ALT (7-52) U/L Alkaline Phosphatase (34-104) U/L Total Creatine Kinase (30-223) U/L Troponin I 32.87 H* (0-0.04) ng/ml C-Reactive Protein 14.14 H (0-0.5) mg/dl B-Natriuretic Peptide (0-100) pg/ml Total Protein (6.0-8.3) gm/dl Albumin (3.4-5.0) gm/dl Globulin (2.5-4.0) gm/dl Albumin/Globulin Ratio (0.9-2) Urine Color Urine Appearance (Clear) Urine pH (4.5-7.5) Ur Specific [place] (1.000-1.030) Urine Protein (Negative) Urine Glucose (UA) (Negative) Urine Ketones (Negative) Urine Blood (Negative) Urine Nitrite (Negative) Urine Bilirubin (Negative) Urine Urobilinogen (Negative) Ur Leukocyte Esterase (Negative) Urine WBC (Auto) (0-5) /hpf Urine RBC (Auto) (0-4) /hpf U Hyaline Cast (Auto) (0-5) /lpf U Epithel Cells (Auto) (0-5) /lpf Urine Bacteria (Auto) (Negative) Influ A Molecular Assay (Negative) Influ B Molecular Assay (Negative) RSV (Molecular) (Negative) SARS-CoV-2, RNA, NAAT (NEGATIVE) 07/31/21 08/01/21 08/01/21 Range/Units 21:09 05:36 05:36 WBC (4.8-10.8) K/uL RBC (4.7-6.1) M/uL Hgb (14.0-18.0) g/dL Hct (42-52) % MCV (80-100) fL MCH (25-34) pg MCHC (32-36) g/dL RDW Std Deviation (36.4-46.3) fL RDW Coeff of Lianne (11.5-14.5) % Plt Count (130-400) K/uL MPV (7.4-10.4) fL Immature Gran % (Auto) % Neut % (Auto) % Lymph % (Auto) % [place] % (Auto) % Eos % (Auto) % Baso % (Auto) % Neut # (Auto) (1.4-6.5) K/uL Lymph # (Auto) (1.2-3.4) K/uL [place] # (Auto) (0.11-0.59) K/uL Eos # (Auto) (0-0.5) K/uL Baso # (Auto) (0-0.2) K/uL Immature Gran # (Auto) (0.00-0.02) K/uL PT 46.1 H (9.0-12.0) Seconds INR 4.7 H (0.9-1.1) Sodium 137 (136-145) mmol/L Potassium 4.2 (3.5-5.1) mmol/L Chloride 108 H (98-107) mmol/L Carbon Dioxide 21 (21-32) mmol/L Anion Gap 8 (3-11) BUN 41 H (6-23) mg/dl Creatinine 1.18 D (0.6-1.4) mg/dl Est Cr Clr Drug Dosing 67.6 ml/min Est GFR ( Amer) 69.1 ml/min Est GFR (Non-Af Amer) 59.6 ml/min BUN/Creatinine Ratio 34.7 H (10-20) Glucose 307 H* (70-99(Fasting)) mg/dl POC Glucose 317 H* (70-99) mg/dl Calcium 8.4 L (8.5-10.1) mg/dl Magnesium (1.7-2.4) mg/dl Total Bilirubin (0.2-1.0) mg/dl AST (13-39) U/L ALT (7-52) U/L Alkaline Phosphatase (34-104) U/L Total Creatine Kinase (30-223) U/L Troponin I 35.59 H* (0-0.04) ng/ml C-Reactive Protein 11.69 H (0-0.5) mg/dl B-Natriuretic Peptide (0-100) pg/ml Total Protein (6.0-8.3) gm/dl Albumin (3.4-5.0) gm/dl Globulin (2.5-4.0) gm/dl Albumin/Globulin Ratio (0.9-2) Urine Color Urine Appearance (Clear) Urine pH (4.5-7.5) Ur Specific [place] (1.000-1.030) Urine Protein (Negative) Urine Glucose (UA) (Negative) Urine Ketones (Negative) Urine Blood (Negative) Urine Nitrite (Negative) Urine Bilirubin (Negative) Urine Urobilinogen (Negative) Ur Leukocyte Esterase (Negative) Urine WBC (Auto) (0-5) /hpf Urine RBC (Auto) (0-4) /hpf U Hyaline Cast (Auto) (0-5) /lpf U Epithel Cells (Auto) (0-5) /lpf Urine Bacteria (Auto) (Negative) Influ A Molecular Assay (Negative) Influ B Molecular Assay (Negative) RSV (Molecular) (Negative) SARS-CoV-2, RNA, NAAT (NEGATIVE) 08/01/21 08/01/21 08/01/21 Range/Units 07:01 07:02 11:22 WBC (4.8-10.8) K/uL RBC (4.7-6.1) M/uL Hgb (14.0-18.0) g/dL Hct (42-52) % MCV (80-100) fL MCH (25-34) pg MCHC (32-36) g/dL RDW Std Deviation (36.4-46.3) fL RDW Coeff of Lianne (11.5-14.5) % Plt Count (130-400) K/uL MPV (7.4-10.4) fL Immature Gran % (Auto) % Neut % (Auto) % Lymph % (Auto) % [place] % (Auto) % Eos % (Auto) % Baso % (Auto) % Neut # (Auto) (1.4-6.5) K/uL Lymph # (Auto) (1.2-3.4) K/uL [place] # (Auto) (0.11-0.59) K/uL Eos # (Auto) (0-0.5) K/uL Baso # (Auto) (0-0.2) K/uL Immature Gran # (Auto) (0.00-0.02) K/uL PT (9.0-12.0) Seconds INR (0.9-1.1) Sodium (136-145) mmol/L Potassium (3.5-5.1) mmol/L Chloride (98-107) mmol/L Carbon Dioxide (21-32) mmol/L Anion Gap (3-11) BUN (6-23) mg/dl Creatinine (0.6-1.4) mg/dl Est Cr Clr Drug Dosing ml/min Est GFR ( Amer) ml/min Est GFR (Non-Af Amer) ml/min BUN/Creatinine Ratio (10-20) Glucose (70-99(Fasting)) mg/dl POC Glucose 308 H* 312 H* 235 H (70-99) mg/dl Calcium (8.5-10.1) mg/dl Magnesium (1.7-2.4) mg/dl Total Bilirubin (0.2-1.0) mg/dl AST (13-39) U/L ALT (7-52) U/L Alkaline Phosphatase (34-104) U/L Total Creatine Kinase (30-223) U/L Troponin I (0-0.04) ng/ml C-Reactive Protein (0-0.5) mg/dl B-Natriuretic Peptide (0-100) pg/ml Total Protein (6.0-8.3) gm/dl Albumin (3.4-5.0) gm/dl Globulin (2.5-4.0) gm/dl Albumin/Globulin Ratio (0.9-2) Urine Color Urine Appearance (Clear) Urine pH (4.5-7.5) Ur Specific [place] (1.000-1.030) Urine Protein (Negative) Urine Glucose (UA) (Negative) Urine Ketones (Negative) Urine Blood (Negative) Urine Nitrite (Negative) Urine Bilirubin (Negative) Urine Urobilinogen (Negative) Ur Leukocyte Esterase (Negative) Urine WBC (Auto) (0-5) /hpf Urine RBC (Auto) (0-4) /hpf U Hyaline Cast (Auto) (0-5) /lpf U Epithel Cells (Auto) (0-5) /lpf Urine Bacteria (Auto) (Negative) Influ A Molecular Assay (Negative) Influ B Molecular Assay (Negative) RSV (Molecular) (Negative) SARS-CoV-2, RNA, NAAT (NEGATIVE) Imaging Data My Impression: Chest x-ray obtained today was reviewed by me and read by radiology. No pneumothorax. Trace pleural effusions. Mild interstitial thickening. Infectious process could appear similar though this favors pulmonary edema. There are bibasilar and right midlung opacities. CT scan of the head shows no intracranial findings. No change in appearance of the brain from his last imaging in March. Lumbar spine films show no acute fracture or subluxation. He has prior hardware from discectomy and posterior decompression. Right shoulder films show no acute fracture or dislocation. Arthritic changes are present at the AC joint. Radiologist's Impression: Chest X-Ray 07/31/21 07:25 XR chest 2V PA/lateral CLINICAL HISTORY: fall at home, weakness COMPARISON STUDY: Chest radiograph July 23, 2021. Chest CT July 09, 2021. FINDINGS: Lung volumes are mildly diminished. There is no pneumothorax. There are trace bilateral pleural effusions. Interstitial thickening is noted. There is minimal right mid and bibasilar opacities. Cardiomegaly is noted. There are median sternotomy wires. Prosthetic aortic valve is present. Postoperative findings within the cervical spine. IMPRESSION: 1. No pneumothorax. Trace bilateral pleural effusions. 2. Mild interstitial thickening. This favors pulmonary edema although an infectious process could appear similar. 3. Minimal bibasilar and right midlung opacities. ACT 112: Negative or not required by law. Electronically signed by: John Paul Drummond M.D. 07/31/2021 8:[address] 07/31/21 07:25 CT OF THE HEAD WITHOUT CONTRAST CLINICAL HISTORY: fall at home, weakness, on thinners COMPARISON STUDY: Head CT April 28, 2021. MRI of the brain May 20, 2021. CT DOSE: 687.98 mGy.cm TECHNIQUE: Helical axial images of the head were obtained without IV contrast. Automated exposure control was utilized for the study. A dose lowering technique was utilized adhering to the principles of ALARA. FINDINGS: No acute intracranial hemorrhage, midline shift or mass effect is present. White matter hypodensities are similar to prior exam and favor small vessel disease. 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 The ventricular system is stable. The basal cisterns are patent. No extra-axial collections are present. There are no findings to suggest acute dur al sinus thrombosis or acute territorial infarct. No acute calvarial fracture. Bilateral mastoid air cells are partially opacified, left greater than right. This is unchanged. IMPRESSION: 1. No acute intracranial findings. No change in appearance of the brain. 2. No acute calvarial fracture. ACT 112: Negative or not required by law. Electronically signed by: John Paul Drummond M.D. 07/31/2021 8:28 AM Lumbar Spine X-Ray 07/31/21 07:25 XR lumbar spine 2-3V CLINICAL HISTORY: fall at home, low back pain, hx of surgery COMPARISON STUDY: Lumbar spine MRI February 12, 2021. Lumbar spine CT November 11. FINDINGS: There are postoperative findings consistent with L5-S1 discectomy and L3-S1 posterior decompression and bilateral posterior fusion. Hardware is intact. Gastric lap band is incidentally noted. No acute lumbar spine fracture is present. Vertebral body heights are maintained. No suspicious osseous lesions. Sacroiliac joints are intact. Degenerative changes within lumbar spine are present. IMPRESSION: 1. No acute lumbar spine fracture or subluxation. 2. Status post L5-S1 discectomy and L3-S1 posterior decompression bilateral pedicle screw fusion. Hardware intact. ACT 112: Negative or not required by law. Electronically signed by: John Paul Drummond M.D. 07/31/2021 8:23 AM Shoulder X-Ray 07/31/21 07:25 XR shoulder RT min 2V routine CLINICAL HISTORY: fall at home, R shoulder pain COMPARISON: None FINDINGS: Apparent foreshortening of the proximal right humerus on internal rotation view is likely technical. No acute fracture is identified on the external rotation and AP projections. Severe joint space narrowing of the acromioclavicular joint is noted. There is mild osteophytosis. Mild glenohumeral joint space narrowing and osteophytosis is present. IMPRESSION: 1. No acute fracture or dislocation within the right shoulder. 2. 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 ACT 112: Negative or not required by law. Electronically signed by: John Paul Drummond M.D. 07/31/2021 8:[address] 07/31/21 10:30 CT OF THE CERVICAL SPINE WITHOUT CONTRAST CLINICAL HISTORY: fall, c spine pain; r/o Fx COMPARISON STUDY: MRI of the cervical spine February 12, 2021. CT of the cervical spinal April 17, 2021. TECHNIQUE: Helical axial images of the cervical spine were obtained without IV contrast. Sagittal and coronal reconstructions were viewed. Automated exposure control was utilized for the study. A dose lowering technique was utilized adhering to the principles of ALARA. FINDINGS: Mastoid effusions are unchanged. Postoperative findings consistent with C4-C5 anterior discectomy and fusion are unchanged. No acute cervical spinal fracture is noted. Severe multilevel facet arthrosis is present. There is moderate multilevel disc space narrowing with osteophytosis. The appearance of the cervical spine is unchanged. IMPRESSION: 1. No acute cervical spine fracture or subluxation. 2. No change in appearance of the cervical spine. Status post C4-C5 anterior di scectomy and fusion. 3. Moderate to severe multilevel degenerative changes within the cervical spine. ACT 112: Negative or not required by law. Electronically signed by: John Paul Drummond M.D. 07/31/2021 11:13 AM ECG Data Additional Comments: EKG shows a sinus rhythm with marked sinus arrhythmia. Rate of 83. When compared to his EKG from 5 days ago, T wave inversion is no longer evident in the anterior leads. QT has mildly lengthened. No other acute changes are noted. This was reviewed with Dr. Díaz. Blood Pressure Blood Pressure Findings: Low blood pressure Blood Pressure Disposition: further management by hospitalist JEOVANNY Parker Patient was evaluated in room C9. Conservative care measures were discussed. IV was established. Labs were obtained. EKG was also obtained. It was compared against his previous EKG and no significant changes were noted. Radiographic imaging of his head, shoulder, and lumbar spine were obtained. All of these were unremarkable for acute changes. I initially had concern for rhabdomyolysis given his extended time on the floor and lack of fluids. CK was normal. Chest film does not suggest worsening of any previous pneumonia. EKG does not suggest acute cardiac injury. Labs suggest dehydration. He was hydrated gently using 1 L normal sterile saline at 150 mL/h. Given that the patient was just previously in the hospital and discharged on Sunday and he fell on night, I do not think he is well enough to take care of himself. He cannot ambulate at this point. He will require placement for rehab and strengthening. Patient is in agreement. [facility] hospitalist service was consulted. Please see that dictation for final management. Patient remained stable while in the ED. Patient was seen in conjunction with Dr. Díaz, who also evaluated the patient and concurred with today's diagnosis and treatment plan. Impression & Plan Generalized weakness, Elevated troponin, Lower back pain Admission with placement for rehab Discharge Plan Visit Data Chief Complaint: Fall Stated Complaint: FALL, WEAKNESS, BACK & R SHOULDER PAIN ED Provider: Tyrell Díaz ED Midlevel Provider: Matthew Limon Discharge Problem: Generalized weakness, Elevated troponin, Lower back pain Patient Disposition: Admitted As Inpatient Discharge Instructions Interventions: ED Discharge Assessment Last Done: 07/31/21 12:43 Addendum August 02, 2021 23:40 HPI: The patient is a 76 y/o gentleman with a pmhx of Parkinsonism, PAF and Mechanical aortic valve on warfarin, CAD, DMN, HLD, ILD, RA, polymyositis who presents to the emergency department via EMS for weakness, back and right shoulder pain in the setting of being discharged from [facility] admission on , subsequently fall on Sunday off the side of his bed and was unable to get up for 14 hours. A/P: EKG without overt acute ischemia. CXR with interstitial thickening. CT head negative for acute process. Lspine and shoulder XR negative for fracture/dislocations. Severe OA of right shoulder noted. WBC wnl. Chemistry without acidosis. BUN 40 and Cr. 1.6 c/w dehydration. cpk wnl. Troponin elevated at 40 in the setting of chronic troponin elevations (upper 20s-upper 30s). C ovid-19 PCR negative. Influenza and RSV PCR negative. UA without convincing evidence of infection. Admit for supportive care and placement. I reviewed the patient's past medical history, medications, and visit nursing notes. I discussed the case with the physician clinic office assistant and agree with the fin dings and plan as documented in PAC Ashly's note. Discharge Problem: Lower back pain Qualifiers: Chronicity: acute Back pain laterality: right Sciatica presence: without sciatica Qualified Code(s): M54.50 - Low back pain, unspecified
[2021-07-31] MEDS ORDERED: LORazepam 2 MG/1 ML VIAL IV PRN (13:31)
[2021-07-31] MEDS: ALBUTEROL HFA 8 GM INHALER INH SCH ×4 (13:33→19:09)
[2021-07-31] MEDS: INSULIN ASPART PER UNIT SC SCH ×3 (14:15→21:46)
[2021-07-31] MEDS: CARBIDOPA/LEVODOPA 25/100MG TAB PO SCH ×2 (14:38→20:06)
[2021-07-31] MEDS: TOPIRAMATE 100 MG TAB PO SCH ×2 (14:38→20:23)
[2021-07-31] MEDS: NYSTATIN SUSP 500,000 U/5 ML UDC PO SCH ×3 (14:39→20:21)
[2021-07-31] MEDS: UMECLIDINIUM/VILANTEROL 62.5/25MCG 7 PUFFS/INHALER INH SCH (14:40)
[2021-07-31] MEDS: levETIRAcetam 500 MG TAB PO SCH (14:41)
[2021-07-31] MEDS: FLUTICASONE FUROATE 100MCG 14 PUFFS/INHALER INH SCH (14:41)
[2021-07-31 15:02] LABS: C Reactive Protein 14.14 mg/dl (0-0.5)
[2021-07-31 15:07] LABS: Troponin I 32.87 ng/ml (0-0.04)
[2021-07-31] MEDS ORDERED: WARFARIN SOD 5 MG TAB PO SCH (16:00)
[2021-07-31] MEDS: allopurinoL 100 MG TAB PO SCH (20:02)
[2021-07-31] MEDS: ATORVASTATIN 40 MG TAB PO SCH (20:03)
[2021-07-31] MEDS: CHOLECALCIFEROL 1,000 UNITS 25 MCG TAB PO SCH (20:08)
[2021-07-31] MEDS: levETIRAcetam 250 MG TAB PO SCH (20:22)
[2021-07-31] MEDS: SENNA 8.6 MG TAB PO SCH (20:24)
[2021-07-31] MEDS: POLYETHYLENE (MIRALAX) 17 GM PACK PO SCH (20:26)
[2021-07-31] MEDS ORDERED: INSULIN GLARGINE SOLOSTAR 100 UNITS/ML 3 ML PEN SQ SCH (21:00)
[2021-07-31] MEDS: oxyCODONE HCL 10 MG TABCR (OxyCONTIN) PO SCH (21:45)
[2021-08-01 06:23] LABS: INR 4.7 (0.9-1.1); Prothrombin Time 46.1 Seconds (9.0-12.0)
[2021-08-01 06:42] LABS: BUN Creatinine Ratio 34.7 (10-20); C Reactive Protein 11.69 mg/dl (0-0.5); Calcium 8.4 mg/dl (8.5-10.1); Creatinine Clr Calc Pharmacy 67.6 ml/min; Est GFR (African American) 69.1 ml/min; Est GFR (Non-African American) 59.6 ml/min; Potassium 4.2 mmol/L (3.5-5.1); Troponin I 35.59 ng/ml (0-0.04)
[2021-08-01] MEDS: ALBUTEROL HFA 8 GM INHALER INH SCH ×4 (07:34→20:18)
[2021-08-01] MEDS: SODIUM CHLORIDE 0.9% 1000ML 1,000 ML IV SCH ×2 (07:48→20:30)
[2021-08-01] MEDS: POLYETHYLENE (MIRALAX) 17 GM PACK PO SCH ×2 (07:58→20:04)
[2021-08-01] MEDS: FINASTERIDE 5 MG TAB PO SCH (08:07)
[2021-08-01] MEDS: INSULIN ASPART PER UNIT SC SCH ×5 (08:07→21:33)
[2021-08-01] MEDS: CARBIDOPA/LEVODOPA 25/100MG TAB PO SCH ×3 (08:07→20:03)
[2021-08-01] MEDS: NYSTATIN SUSP 500,000 U/5 ML UDC PO SCH ×4 (08:08→20:03)
[2021-08-01] MEDS: oxyCODONE HCL 10 MG TABCR (OxyCONTIN) PO SCH ×2 (08:08→20:10)
[2021-08-01] MEDS: FLUTICASONE FUROATE 100MCG 14 PUFFS/INHALER INH SCH (08:08)
[2021-08-01] MEDS: UMECLIDINIUM/VILANTEROL 62.5/25MCG 7 PUFFS/INHALER INH SCH (08:08)
[2021-08-01] MEDS: TOPIRAMATE 100 MG TAB PO SCH ×2 (08:57→20:04)
[2021-08-01] MEDS: SENNA 8.6 MG TAB PO SCH ×2 (08:57→20:04)
[2021-08-01] MEDS ORDERED: predniSONE 20 MG TAB PO SCH (09:00)
[2021-08-01] MEDS ORDERED: INSULIN GLARGINE SOLOSTAR 100 UNITS/ML 3 ML PEN SQ SCH (09:00)
[2021-08-01] MEDS: levETIRAcetam 500 MG TAB PO SCH (09:46)
[2021-08-01] MEDS ORDERED: PHARMACY GLYCEMIC MGMT CONSULT PRN (11:26)
[2021-08-01] MEDS ORDERED: DC ALL PREVIOUSLY ORDERED DIABETES MEDS ONE (11:26)
[2021-08-01] MEDS ORDERED: MODERATE STRESS LEVEL ONE (11:26)
[2021-08-01] MEDS ORDERED: STAT IV Infusion **Titration per Protocol STA (11:26)
[2021-08-01] MEDS ORDERED: INSULIN PROTOCOL GOAL RANGE ONE (11:26)
--- NOTE | 2021-08-01 11:31 | Hospitalist Progress Note ---
Date of Service August 01, 2021 Assessment & Plan (1) Fall: Plan: History of numerous falls over the years. Had another fall on Sunday, 07/29 (slid off his bed at home onto the floor). He admitted to feeling quite weak upon return home after his recent hospital stay for RLL pneumonia. He does not have any apparent injuries. R shoulder x-rays, cxr, CT head, CT cervical spine - all negative for injury or ICH. On clinical exam he has no evidence of injury/fracture to his pelvis or hips. No rhabdomyolysis with normal CPK. Recent B12 level, TSH, sodium, K, and mag levels have been wnl. No obvious infectious process - COVID/flu/RSV negative; ua not suggestive of UTI; no obvious worsening pneumonia on cxr. I suspect that polyneuropathy is a big reason for his falls. In this case it would have been compounded by significant deconditioning in the setting of multiple recent hospital stays. PT/OT consults. Really should not be living alone unless he has 24/7 support. (2) Acute kidney injury: Plan: Baseline Cr about 1.1. Cr at presentation - 1.6 - prerenal/dehydration. SHYANN improved - Cr 1.1 today. Continue isotonic fluids at least through tonight. Advance diet. Repeat BMP am. (3) Neck pain: Plan: 2nd to fall. negative CT c-spine for fractures. No c/o pain today. (4) Chronic chest pain: Plan: All troponins in the past were normal until this April 2021 when he presented to [facility] with constant chest pain. He was felt to have myocarditis - either 2nd to viral etiology or autoimmune/inflammatory. He was placed on higher amounts of prednisone (takes 10mg chronically) and colchicine. Despite such his pains never resolved, and his troponin has remained in the 30- 35 range since that time. On 05/25/21 Dr Stevan Vincent performed a cath and his previous stents were patent. No areas of high-grade stenosis were seen. Echo has continued to show intact LV function. During his recent stay at [facility] he underwent a cardiac MRI which, by report, was normal (no evidence of infiltrative disease such as sarcoid/amyloid, etc). Cause of troponin elevation was uncertain. At his recent office visit with Dr Shipley, [facility] in [place], his colchicine & leflunomide were both stopped due to lack of evidence of myocarditis/pericarditis. Troponin on 07/31/21 was 41. (perhaps due to the fall and laying on ground). Today it is now 35. With the persistent chest pain and elevated troponin could he have aortitis? He does have a history of thoracic aortic dissection s/p repair. I spoke with radiology - given his CT contrast anaphylactic reaction will not pursue CTA chest. MRA chest advised but radiology also recommended pre-contrast steroid protocol for the gadolinium. Of note - he had MRI brain w/ contrast in 04/2021 without incident. Plan - He already received 60mg of prednisone this am. Will give 50mg in 6 hours (1500 this afternoon), then another 50mg in 6 hours (2100 tonight). The 3rd/final prednisone dose is thus 1 hour prior to the MRA. MRA ordered for 2200. At the 1-hour elizabeth the protocols also call for 50mg of PO benadryl. Plan of care signed out to night-team. (5) Elevated troponin: Plan: See #4 above. 41 at presentation. 35 this am. No evidence of ACS. If MRA chest is negative --- a colleague has found in the literature that there have been case reports of troponins being inaccurate in the setting of a change in the assay. I did confirm with our [employer], however, that although the troponin reference range changed modestly in late 03/2021 the assay and machine are still the same. Could consider sending a troponin off to another lab for analysis to compare. (6) Polymyositis: Plan: Follows with Dr Britton Shipley, [facility]. Apparently had had a polymyositis panel in the past showing MDA5 level elevation (per Dr Shipley - his level was 34, normal being <20). He has had positive anti-CCP ab and aldolase levels in the past. All CPK levels however, both past & present, have been normal. He is on chronic prednisone therapy for this condition. CRP elevated at 14 on 07/31 - due to recent pneumonia? due to stress of his fall? other process? repeat CRP 11 today without any antibiotic therapy. recheck CRP am tomorrow. (7) Chronic respiratory failure with hypoxia: Plan: On home O2 - there has been concern in the past for ILD but has never been fully proven. Previous biopsies in [place] of the left lung were inconclusive for ILD. He has been evaluated at the [facility] - they, too, felt that ILD was not present and that his chest CT findings are likely more c/w chronic aspiration. He follows with Dr Wiliam Ortega - [facility]. He just saw Dr Ortega in the clinic - he also feels that his chronic respiratory issues are likely from chronic aspiration. During his recent hospitalization at [facility] he was seen by pulmonary. Underwent yet another NON-contrast chest CT. [facility] felt that the CT findings were more c/w chronic aspiration rather than an ILD process. (8) CAD (coronary artery disease): Plan: Previous cath 04/2021 with patent stents. Continue statin. Uncertain why he is not on aspirin or low-dose BB. (9) Candidiasis of mouth and esophagus: Plan: Nystatin solution 5cc qid swish/spit. Improved. (10) Chronic kidney disease, stage 3a: Plan: Baseline Cr about 1 to 1.1. Baseline CrCl 50s/60s. Now with SHYANN but improved. BMP in am. (11) Chronic pulmonary aspiration: Plan: Suspected - [facility], [facility], [facility], etc - all feel that this is more likely the cause of his chronic pulmonary issues as opposed to ILD. FEES study by speech therapy last done on 12/08/20. This confirmed silent aspiration. The mechanism of his aspiration is due to pharyngeal pooling of liquid per speech. Speech reported that a solution to his dysphagia was not possible. Aspiration precautions - head of bed at 30 degrees at all times, etc. (12) Chronic use of steroids: Plan: Prednisone 10mg/day for polymyositis. There has been ?RA in the past but no joint manifestations of such. Dermatomyositis has also been entertained as a diagnosis. He did not have his prednisone for 2 days over this past weekend. Thus, he received dexamethasone in the ER yesterday. He will have high-dose prednisone for his MRA tonight. (13) Constipation due to opioid therapy: Plan: Continue a bowel regimen. (14) Diabetes: Plan: Hba1c 6.9% in June. BSGs have been elevated since admission. They will continue to be refractory to SC insulin given the large amt of steroids he will have for MRA. Thus, hold SC basal-bolus; implement insulin drip protocol. Consult pharmacy glycemic team for assistance. (15) History of aortic valve replacement: Plan: 2004. Mechanical. INR goal range 2.5 to 3.5. Fortunately no ICH or other bleeding from his recent fall. INR today 4.7 (likely due to no eating over the weekend, etc). HOLD coumadin today. INR qam while here. (16) History of gastric bypass: (17) History of prostate cancer: (18) History of seizures: Plan: Continue gabapentin, topamax, keppra. No recent seizures. Last keppra level was 03/2021 and was within goal range. Can't rule out a seizure leading to his fall on 07/29 but felt to be unlikely. (19) HLD (hyperlipidemia): Plan: Continue lipitor. CPK wnl. (20) Interstitial lung disease due to connective tissue disease: Plan: Suspected but unlikely. ILD has been suspected for several years but nothing has confirmed that diagnosis including previous biopsy. See #[address] Wiliam Ortega for his chronic respiratory problems. (21) PAF (paroxysmal atrial fibrillation): Plan: On chronic coumadin. He is not on AV elysia agents or antiarrhythmics chronically. Since admission remains in NSR. INR elevated today - coumadin placed on hold. (22) Parkinsonism: Plan: Continue carbidopa-levodopa TID. Plan: son updated yesterday at admission change observation status to full admission status Admission and Anticipated Discharge Date Admission Date: July 31, 2021 Subjective patient overall feels better today tolerating full liquids diet; asks for advancement no new symptoms today such as sore throat, fever, ear pain, chills, worsening cough, worsening dyspnea, abd pain chest pain on L is similar to previous - no change in character or quality or severity tele overnight wnl worked with PT; felt stronger than yesterday he did confirm with me he had ascending thoracic aortic dissection in 2003 s/p repair Review of Systems Review of Systems: gen - no fevers/chills; good appetite today cv - chest pains - ongoing; no PND/orthopnea pulm - no sputum; mild intermittent chronic cough unchanged GI - no N/V/D - voiding without difficulty Physical Exam Physical Exam: gen - sitting in chair, looks much better than yesterday; awake/alert mouth - MM much more moist today; thrush improved on tongue neck - no JVD heart - RRR, s1 s2, mechanical valve closure sound, no murmur lungs - minimal b/l basilar rales, otherwise CTA b/l; no wheeze abd - soft NT ND BS+ ext - trace edema on right, none on left; right leg is chronically larger than the left leg; pulses 2+ b/l psych - a/o x 3 neuro - mild resting tremors skin - scattered bruises Results & Data Results & Data ([facility]) Vital Signs (Past 12 Hours) Vital Signs Temp Pulse Resp BP Pulse Ox 08/01/21 11:27 36.7 C 83 16 114/63 98 08/01/21 11:22 83 16 98 08/01/21 07:34 58 L 16 93 08/01/21 06:59 36.6 C 57 L 18 114/63 95 08/01/21 03:21 36.5 C 63 16 101/56 L 96 08/01/21 01:01 36.4 C L 58 L 16 105/56 L 97 Laboratory Results Laboratory Results - last 24 hr 07/31/21 07/31/21 07/31/21 11:52 12:39 13:55 PT INR Sodium Potassium Chloride Carbon Dioxide Anion Gap BUN Creatinine Est Cr Clr Drug Dosing Est GFR ( Amer) Est GFR (Non-Af Amer) BUN/Creatinine Ratio Glucose POC Glucose 216 H Calcium Troponin I 32.87 H* C-Reactive Protein 14.14 H Urine Color Dark Yellow Urine Appearance Clear Urine pH 5.0 Ur Specific [place] 1.021 Urine Protein Trace H Urine Glucose (UA) Negative Urine Ketones Trace H Urine Blood Negative Urine Nitrite Negative Urine Bilirubin 1+ H Urine Urobilinogen Negative Ur Leukocyte Esterase Negative Urine WBC (Auto) 0 Urine RBC (Auto) 0-4 U Hyaline Cast (Auto) 0 U Epithel Cells (Auto) 0-5 Urine Bacteria (Auto) Negative 07/31/21 07/31/21 07/31/21 16:07 16:08 21:09 PT INR Sodium Potassium Chloride Carbon Dioxide Anion Gap BUN Creatinine Est Cr Clr Drug Dosing Est GFR ( Amer) Est GFR (Non-Af Amer) BUN/Creatinine Ratio Glucose POC Glucose 302 H* 323 H* 317 H* Calcium Troponin I C-Reactive Protein Urine Color Urine Appearance Urine pH Ur Specific [place] Urine Protein Urine Glucose (UA) Urine Ketones Urine Blood Urine Nitrite Urine Bilirubin Urine Urobilinogen Ur Leukocyte Esterase Urine WBC (Auto) Urine RBC (Auto) U Hyaline Cast (Auto) U Epithel Cells (Auto) Urine Bacteria (Auto) 08/01/21 08/01/21 08/01/21 05:36 05:36 07:01 PT 46.1 H INR 4.7 H Sodium 137 Potassium 4.2 Chloride 108 H Carbon Dioxide 21 Anion Gap 8 BUN 41 H Creatinine 1.18 D Est Cr Clr Drug Dosing 67.6 Est GFR ( Amer) 69.1 Est GFR (Non-Af Amer) 59.6 BUN/Creatinine Ratio 34.7 H Glucose 307 H* POC Glucose 308 H* Calcium 8.4 L Troponin I 35.59 H* C-Reactive Protein 11.69 H Urine Color Urine Appearance Urine pH Ur Specific [place] Urine Protein Urine Glucose (UA) Urine Ketones Urine Blood Urine Nitrite Urine Bilirubin Urine Urobilinogen Ur Leukocyte Esterase Urine WBC (Auto) Urine RBC (Auto) U Hyaline Cast (Auto) U Epithel Cells (Auto) Urine Bacteria (Auto) 08/01/21 08/01/21 07:02 11:22 PT INR Sodium Potassium Chloride Carbon Dioxide Anion Gap BUN Creatinine Est Cr Clr Drug Dosing Est GFR ( Amer) Est GFR (Non-Af Amer) BUN/Creatinine Ratio Glucose POC Glucose 312 H* 235 H Calcium Troponin I C-Reactive Protein Urine Color Urine Appearance Urine pH Ur Specific [place] Urine Protein Urine Glucose (UA) Urine Ketones Urine Blood Urine Nitrite Urine Bilirubin Urine Urobilinogen Ur Leukocyte Esterase Urine WBC (Auto) Urine RBC (Auto) U Hyaline Cast (Auto) U Epithel Cells (Auto) Urine Bacteria (Auto) PG Care Time/CCT Total # of Minutes Spent Total Time Spent with Patient: Total time spent is greater than 50% in coordination of care (as documented) at patient's floor/unit and/or counseling patient: Coding Level of Care Code 50562 Subseq Hosp Care Lvl 3 Diagnoses Fall W19.XXXA Acute kidney injury N17.9 Neck pain M54.2 Chronic chest pain R07.9; G89.29 Elevated troponin R77.8 Polymyositis M33.20 Chronic respiratory failure with hypoxia J96.11 CAD (coronary artery disease) I25.10 Associated angina: without angina Coronary Disease-Associated Artery/Lesion type: [place] artery [place] vs. transplanted heart: [place] heart Candidiasis of mouth and esophagus B37.81; B37.0 Chronic kidney disease, stage 3a N18.3 Chronic pulmonary aspiration T17.908A Chronic use of steroids Constipation due to opioid therapy K59.03; T40.2X5A Diabetes E11.42; Z79.4 Diabetes mellitus complication detail: with polyneuropathy Diabetes mellitus complication status: with neurologic complications Diabetes mellitus long-term insulin use: with long-term use Diabetes mellitus type: type 2 History of aortic valve replacement Z95.2 History of gastric bypass Z98.84 History of prostate cancer Z85.46 History of seizures Z87.898 HLD (hyperlipidemia) E78.2 Hyperlipidemia type: mixed hyperlipidemia 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; M35.9 PAF (paroxysmal atrial fibrillation) I48.0 Parkinsonism G20 Parkinsonism type: unspecified (1) Diabetes Diabetes mellitus complication detail: with polyneuropathy Diabetes mellitus complication status: with neurologic complications Diabetes mellitus ferry terminal agent insulin use: with ferry terminal agent use Diabetes mellitus type: type 2 Qualified Code(s): E11.42 - Type 2 diabetes mellitus with diabetic polyneuropathy; Z79.4 - snf (current) use of insulin (2) CAD (coronary artery disease) Associated angina: without angina Coronary Disease-Associated Artery/Lesion type: [place] artery [place] vs. transplanted heart: [place] heart Qualified Code(s): I25.10 - Atherosclerotic heart disease of [place] coronary artery without angina pectoris (3) HLD (hyperlipidemia) Hyperlipidemia type: mixed hyperlipidemia Qualified Code(s): E78.2 - Mixed hyperlipidemia (4) Parkinsonism Parkinsonism type: unspecified Qualified Code(s): G20 - Parkinson's disease
--- NOTE | 2021-08-01 14:12 | Pharmacy Report ---
Pharmacy Glycemic Short Note 2 - Date of Service August 01, 2021 - Glycemic Short BSG Results (Last 24 hours): 07/31/21 07/31/21 07/31/21 16:07 16:08 21:09 Glucose POC Glucose 302 H* 323 H* 317 H* 08/01/21 08/01/21 08/01/21 05:36 07:01 07:02 Glucose 307 H* POC Glucose 308 H* 312 H* 08/01/21 11:22 Glucose POC Glucose 235 H OUTPATIENT ANTIDIABETIC REGIMEN: * Lantus 20 units BID * NPH 10 units daily with prednisone 10 mg daily (typically he adjusts based upon steroid dosing) * Novolog per SS * A1c 6.9% (07/04/21) ASSESSMENT: * Type 2 diabetic admitted for fall, weakness, polymyositis, myocarditis/pericarditis * BSGs elevated on admission and continued to be elevated thru thus AM with BSGs in 300s. Of note, pt to start high dose prednisone today as well as receive prednisone as pretreat for contrast allergy * Provider has initiated IV insulin infusion for persistent hyperglycemia in setting of escalating steroid doses. Agree with this therapy. Will without SQ basal at this time and reassess needs tomorrow. Will likely attempt to transition back to a regimen of Lantus + NPH + Novolog tomorrow PLAN FOR INPATIENT GLYCEMIC CONTROL: * Continue IV insulin infusion per "moderate stress" protocol * Bolus insulin * Nutritional / Prandial insulin per carb ratio of 1 unit per 4 grams CHO consumed
[2021-08-01] MEDS: INSULIN REGULAR 250 UNITS in SODIUM CHLORIDE 0.9% 247.5 ML IV SCH (14:55)
[2021-08-01] MEDS ORDERED: predniSONE 50 MG TAB PO ONE ×2 (15:00→21:00)
[2021-08-01] MEDS: ATORVASTATIN 40 MG TAB PO SCH (20:03)
[2021-08-01] MEDS: levETIRAcetam 250 MG TAB PO SCH (20:03)
[2021-08-01] MEDS: CHOLECALCIFEROL 1,000 UNITS 25 MCG TAB PO SCH (20:03)
[2021-08-01] MEDS: allopurinoL 100 MG TAB PO SCH (20:03)
[2021-08-01] MEDS ORDERED: diphenhydrAMINE Capsule 25 MG CAP PO ONE (21:00)
[2021-08-01] MEDS ORDERED: GADOBUTROL 65ML VIAL IV ONE (23:21)
[2021-08-02] MEDS: ACETAMINOPHEN 325 MG TAB PO PRN ×2 (03:25→23:40)
--- NOTE | 2021-08-02 06:29 | Electrocardiogram Report ---
Test Reason : Blood Pressure : / mmHG Vent. Rate : 083 BPM Atrial Rate : 083 BPM P-R Int : 140 ms QRS Dur : 084 ms QT Int : 396 ms P-R-T Axes : 028 006 107 degrees QTc Int : 465 ms Poor data quality, interpretation may be adversely affected Sinus rhythm Premature atrial complexes Possible Left atrial enlargement Abnormal QRS-T angle, consider primary T wave abnormality Abnormal ECG When compared with ECG of 26-JUL-2021 10:40, No significant change Confirmed by Shaihd Cross ([id number]) on 08/02/2021 6:29:14 AM Referred By: REFERRED SELF Confirmed By:Shahid Cross
[2021-08-02] MEDS: ALBUTEROL HFA 8 GM INHALER INH SCH ×5 (07:24→18:57)
[2021-08-02] MEDS: CARBIDOPA/LEVODOPA 25/100MG TAB PO SCH ×3 (07:38→19:50)
[2021-08-02] MEDS: FINASTERIDE 5 MG TAB PO SCH (07:38)
[2021-08-02] MEDS: levETIRAcetam 500 MG TAB PO SCH (07:38)
[2021-08-02] MEDS: TOPIRAMATE 100 MG TAB PO SCH ×2 (07:38→19:50)
[2021-08-02] MEDS: NYSTATIN SUSP 500,000 U/5 ML UDC PO SCH ×4 (07:39→19:49)
[2021-08-02] MEDS: POLYETHYLENE (MIRALAX) 17 GM PACK PO SCH ×2 (07:39→19:49)
[2021-08-02] MEDS: FLUTICASONE FUROATE 100MCG 14 PUFFS/INHALER INH SCH (07:39)
[2021-08-02] MEDS: SENNA 8.6 MG TAB PO SCH ×2 (07:39→19:49)
[2021-08-02] MEDS: predniSONE 10 MG TABLET PO SCH (07:40)
[2021-08-02] MEDS: UMECLIDINIUM/VILANTEROL 62.5/25MCG 7 PUFFS/INHALER INH SCH (07:40)
[2021-08-02] MEDS: INSULIN ASPART PER UNIT SC SCH ×4 (07:41→20:07)
[2021-08-02] MEDS: oxyCODONE HCL 10 MG TABCR (OxyCONTIN) PO SCH (07:44)
--- NOTE | 2021-08-02 08:15 | Magnetic Resonance Report ---
MR angio chest wo/w con HISTORY: h/o thoracic dissection, elevated troponin. Atypical chest pain.; aortitis? TECHNIQUE: MR angiography of the chest was performed both before and after the intravenous administra tion of 10.5 cc of Eovist contrast to evaluate the aorta. COMPARISON STUDY: Chest CT 01/09/2021. FINDINGS: Motion artifact results in suboptimal evaluation of the chest. The ascending thoracic aorta measures up to 4 cm in diameter. This remains unchanged. An aortic valve prosthesis is again noted. There are poststernotomy changes. The aortic arch and descending thoracic aorta are normal in caliber . No evidence for thickening of the aortic wall or perinephric fat stranding to suggest an aortitis. Right basilar linear densities are nonspecific but favor subsegmental atelectasis or scarring. No med iastinal or hilar lymphadenopathy. Normal esophagus. The main pulmonary artery is borderline dilated 3.1 cm. This may represent mild pulmonary arterial hypertension. No evidence for an aortic dissection . The central pulmonary arteries are patent. Limited views the upper abdomen demonstrate a normal abi er and spleen. The proximal great vessels are widely patent. IMPRESSION: 1. No evidence for aortitis. 2. The ascending thoracic aorta remains borderline dilated at 4 cm. No evidence for an aortic dissect ion. 3. Status post aortic valve prosthesis. ACT 112: Negative or not required by law. Electronically signed by: Jc Che M.D. 08/02/2021 8:13 AM
[2021-08-02 08:20] LABS: Hematocrit (blood only) 32.7 % (42-52); Hemoglobin 10.6 g/dL (14.0-18.0); Mean Corpuscular Hemoglobin 27.5 pg (25-34); Mean Corpuscular Hgb Conc 32.4 g/dL (32-36); Mean Corpuscular Volume 84.7 fL (80-100); Mean Platelet Volume 9.6 fL (7.4-10.4); Platelet Count 156 K/uL (130-400); RDW Coefficient of Variation 18.2 % (11.5-14.5); RDW Standard Deviation 56.6 fL (36.4-46.3); Red Blood Count 3.86 M/uL (4.7-6.1); White Blood Count 6.72 K/uL (4.8-10.8)
[2021-08-02 08:42] LABS: BUN Creatinine Ratio 32.7 (10-20); C Reactive Protein 4.76 mg/dl (0-0.5); Calcium 8.7 mg/dl (8.5-10.1); Creatinine Clr Calc Pharmacy 75.2 ml/min; Est GFR (African American) 77.7 ml/min; Est GFR (Non-African American) 67.1 ml/min; Prothrombin Time 60.2 Seconds (9.0-12.0)
[2021-08-02 08:46] LABS: INR 6.2 (0.9-1.1)
[2021-08-02] MEDS ORDERED: INSULIN GLARGINE SOLOSTAR 100 UNITS/ML 3 ML PEN SQ SCH (09:00)
[2021-08-02] MEDS ORDERED: INSULIN HUMAN NPH SC ONE (09:00)
--- NOTE | 2021-08-02 12:00 | Pharmacy Report ---
Pharmacy Glycemic Short Note 2 - Date of Service August 02, 2021 - Glycemic Short BSG Results (Last 24 hours): 08/01/21 08/01/21 08/01/21 14:46 14:47 15:47 Glucose POC Glucose 310 H* 334 H* 333 H* 08/01/21 08/01/21 08/01/21 15:48 17:00 17:01 Glucose POC Glucose 311 H* 349 H* 304 H* 08/01/21 08/01/21 08/01/21 18:07 19:01 19:02 Glucose POC Glucose 291 H 310 H* 314 H* 08/01/21 08/01/21 08/01/21 20:17 21:07 22:08 Glucose POC Glucose 282 H 234 H 209 H 08/01/21 08/02/21 08/02/21 23:44 00:50 01:48 Glucose POC Glucose 143 H 124 H 112 H 08/02/21 08/02/21 08/02/21 02:30 03:16 04:07 Glucose POC Glucose 107 H 94 87 08/02/21 08/02/21 08/02/21 05:12 06:05 06:52 Glucose 110 H POC Glucose 138 H 110 H 08/02/21 08/02/21 08/02/21 06:58 07:56 09:00 Glucose POC Glucose 116 H 141 H 132 H 08/02/21 10:58 Glucose POC Glucose 141 H OUTPATIENT ANTIDIABETIC REGIMEN: * Lantus 20 units BID * NPH 10 units daily with prednisone 10 mg daily (typically he adjusts based upon steroid dosing) * Novolog per SS * A1c 6.9% (07/04/21) ASSESSMENT: 08/02 * BSGs did climb into the 300s yesterday despite initiation of insulin drip, likely due to dietary carb provision in combo with high dose prednisone * Insulin drip did run as high as 9.2 units/hr, but have since been titrated down to 3.4 units/hr and BSGs are now at goal * Today prednisone dose has been reduced to 10mg daily (outpt dose) * Will resume Lantus and NPH this AM using doses similar to those used while inpatient at the end of last month on the same prednisone dosage. * Plan to transition the patient off the insulin drip later today, as the effects of yesterdays Prednisone doses dissipate and SQ insulin takes effect. 08/01 * Type 2 diabetic admitted for fall, weakness, polymyositis, myocarditis/pericarditis * BSGs elevated on admission and continued to be elevated thru thus AM with BSGs in 300s. Of note, pt to start high dose prednisone today as well as receive prednisone as pretreat for contrast allergy * Provider has initiated IV insulin infusion for persistent hyperglycemia in setting of escalating steroid doses. Agree with this therapy. Will without SQ basal at this time and reassess needs tomorrow. Will likely attempt to transition back to a regimen of Lantus + NPH + Novolog tomorrow PLAN FOR INPATIENT GLYCEMIC CONTROL: * Lantus 15 units Q AM + 0-8 units Q HS based upon BSG (see eMAR) * Continue IV insulin infusion per "moderate stress" protocol, however RN may d/c the drip if instructed to hold per rate adjustment calculator * Bolus insulin * Nutritional / Prandial insulin per carb ratio of 1 unit per 4 grams CHO consumed * Once insulin drip DC'd, will provide ACHS and at 0200 with the following correctional insulin: * ---Goal range: 110-140 mg/dL * ---Correction factor: 15mg/dL/unit
--- NOTE | 2021-08-02 12:55 | Hospitalist Progress Note ---
Date of Service August 02, 2021 Assessment & Plan (1) Fall: Plan: History of numerous falls over the years. Had another fall on Sunday, 07/29 (slid off his bed at home onto the floor). He admitted to feeling quite weak upon return home after his recent hospital stay for RLL pneumonia. He does not have any apparent injuries. R shoulder x-rays, cxr, CT head, CT cervical spine - all negative for injury or ICH. On clinical exam he has no evidence of injury/fracture to his pelvis or hips. No rhabdomyolysis with normal CPK. Recent B12 level, TSH, sodium, K, and mag levels have been wnl. No obvious infectious process - COVID/flu/RSV negative; ua not suggestive of UTI; no obvious worsening pneumonia on cxr. 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 In this case it would have been compounded by significant deconditioning in the setting of multiple recent hospital stays. PT/OT consults. Really should not be living alone unless he has 24/7 support. (2) Acute kidney injury: Plan: Baseline Cr about 1.1. Cr at presentation - 1.6 - prerenal/dehydration. SHYANN now resolved after IVF hydration holding home lasix follow BMP (3) Neck pain: Plan: 2nd to fall. negative CT c-spine for fractures. No c/o pain today. (4) Chronic chest pain: Plan: All troponins in the past were normal until this April 2021 when he presented to [facility] with constant chest pain and was found to have a troponin consistently in the high 20s to low 40s. He was felt to have myocarditis - either 2nd to viral etiology or autoimmune/inflammatory. He was placed on higher amounts of prednisone (takes 10mg chronically) and colchicine. Despite such his pains never resolved, and his troponin has remained in the 30- 35 range since that time. On 05/25/21 Dr Stevan Vincent performed a cath and his previous stents were patent. No areas of high-grade stenosis were seen. Echo has continued to show intact LV function. During his recent stay at [facility] he underwent a cardiac MRI which, by report, was normal (no evidence of infiltrative disease such as sarcoid/amyloid, etc). Cause of troponin elevation was uncertain. At his recent office visit with Dr Shipley, [facility] in [place], his colchicine & leflunomide were both stopped due to lack of evidence of myocarditis/pericarditis. Troponin on 07/31/21 was 41. (perhaps due to the fall and laying on ground). Then troponin 35 which is consistent with previous values for 3-4 months now. With the persistent chest pain and elevated troponin could he have aortitis?---> MRA Chest negative for such on 08/01 He does have a history of thoracic aortic dissection s/p repair. Sent troponin test to [facility] for verification on 08/02 and was found to be normal. 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 Jone Holt's note from 08/02 regarding this matter. Overall, troponin is normal and likely has been normal this entire 3 month period. Has been seen by Pulmonology, Rheumatology, and Cardiology at various institutions. The only other thought other than MSK would be is this GI related as he has a h/o lap band surgery? Pt would like to taper off opioids for fear of becoming dependent--> dc evening dose of Oxycontin 10mg and continue with once daily dosing continue oxycodone IR as needed prn breakthrough pain -suggested Acupuncture, chiropractor also for MSK pain (5) Elevated troponin: Plan: see above (6) Polymyositis: Plan: Follows with Dr Britton Shipley, [facility]. Apparently had had a polymyositis panel in the past showing MDA5 level elevation (per Dr Shipley - his level was 34, normal being <20). He has had positive anti-CCP ab and aldolase levels in the past. All CPK levels however, both past & present, have been normal. He is on chronic prednisone therapy for this condition. CRP elevated at 14 on 07/31 - due to recent pneumonia? due to stress of his fall? other process? repeat CRP now down to 4 today without any antibiotic therapy. now off leflunomide, jorge remains on prednisone 10mg daily prednisone 60mg daily did NOT help his chest pain at all which argues against an inflammatory process (7) Chronic respiratory failure with hypoxia: Plan: On home O2 - there has been concern in the past for ILD but has never been fully proven. Previous biopsies in [place] of the left lung were inconclusive for ILD. He has been evaluated at the [facility] - they, too, felt that ILD was not present and that his chest CT findings are likely more c/w chronic aspiration. He follows with Dr Wiliam Ortega - [facility]. He just saw Dr Ortega in the clinic - he also feels that his chronic respiratory issues are likely from chronic aspiration but does not feel a bronchoscopy would be prudent at this time. During his recent hospitalization at [facility] he was seen by pulmonary. Underwent yet another NON-contrast chest CT. [facility] felt that the CT findings were more c/w chronic aspiration rather than an ILD process. he plans on f/u with ILD clinic at [facility] after discharge (8) CAD (coronary artery disease): Plan: Previous cath 04/2021 with patent stents. Continue statin. not on BB. -can now restart ASA 81mg daily now that off colchicine (was held for colchicine) (9) Candidiasis of mouth and esophagus: Plan: Nystatin solution 5cc qid swish/spit. Improved. (10) Chronic kidney disease, stage 3a: Plan: Baseline Cr about 1 to 1.1. Baseline CrCl 50s/60s. SHYANN as above now reoslved BMP in am. (11) Chronic pulmonary aspiration: Plan: Suspected - [facility], [facility], [facility], etc - all feel that this is more likely the cause of his chronic pulmonary issues as opposed to ILD. FEES study by speech therapy last done on 12/08/20. This confirmed silent aspiration. The mechanism of his aspiration is due to pharyngeal pooling of liquid per speech. Speech reported that a solution to his dysphagia was not possible. Aspiration precautions - head of bed at 30 degrees at all times, etc. (12) Chronic use of steroids: Plan: Prednisone 10mg/day for polymyositis. There has been ?RA in the past but no joint manifestations of such. Dermatomyositis has also been entertained as a diagnosis. received high dose prednisone 08/01 for contrast dye allergy, now back on 10mg daily (13) Constipation due to opioid therapy: Plan: Continue a bowel regimen. moving bowels (14) Diabetes: Plan: Hba1c 6.9% in June. BSGs have been elevated since admission. hyperglycemia secondary to high dose steroids for contrast dye allergy--> was on insulin gtt and now weaned off today continue basal-bolus insulin Consult pharmacy glycemic team for assistance. (15) History of aortic valve replacement: Plan: 2003. Mechanical. INR goal range 2.5 to 3.5. Fortunately no ICH or other bleeding from his recent fall. INR today even higher at 6.2, no evidence of bleeding from anywhere probably secondary to higher dose prednisone HOLD coumadin today. INR qam while here. (16) History of gastric bypass: Plan: lap band actually see above may need GI consult (17) History of prostate cancer: Plan: s/p radiation (18) History of seizures: Plan: Continue gabapentin, topamax, keppra. No recent seizures. Last keppra level was 03/2021 and was within goal range. Can't rule out a seizure leading to his fall on 07/29 but felt to be unlikely. tapering down on Keppra dose as per outpt Neuro notes to 1000/750mg now (19) HLD (hyperlipidemia): Plan: Continue lipitor. CPK wnl. (20) Interstitial lung disease due to connective tissue disease: Plan: Suspected but unlikely. ILD has been suspected for several years but nothing has confirmed that diagnosis including previous biopsy. See above. Follows with Dr Wiliam Ortega for his chronic respiratory problems. (21) PAF (paroxysmal atrial fibrillation): Plan: On chronic coumadin. He is not on AV elysia agents or antiarrhythmics chronically. Since admission remains in NSR. INR elevated today - coumadin placed on hold. (22) Parkinsonism: Plan: Continue carbidopa-levodopa TID. Plan: Dispo-continued stay but hopeful for dc soon. He refuses SNF so will need home health and 24/7 care Admission and Anticipated Discharge Date Admission Date: August 01, 2021 Subjective Still has same constant chest pain as always on left side, nothing makes it better or worse-no specific movements, no touch. Has low appetite and is upset that he got very little sleep due to frequent glucose checks for insulin gtt. Is moving his bowels. Was OOB and walked halls with PT today. No other pains anywhere, just brush costello on knees and elbows from crawling on the carpet. I discussed his care with Dr. Holt of Pathology regarding his false elevation of troponin Review of Systems Review of Systems: All systems reviewed & are unremarkable except as noted in HPI & below Physical Exam Constitutional: WD/WN, vitals as above Eyes: + anicteric sclerae ENMT: external ear and nose normal, oropharynx normal Neck: trachea midline, no thyromegaly Respiratory: normal respiratory effort, lungs clear to auscultation Cardiovascular: RRR, no murmur, no edema Chest (Breasts): Chest: normal inspection of chest Additional Comments: no TTP over left chest wall at site of pain, no masses Gastrointestinal (Abdomen): normal bowel sounds, soft, nontender, no hepatosplenomegaly Musculoskeletal: Extremities: extremities normal to inspection; no cyanosis and no clubbing Skin: no rashes, warm and dry (a few minor abrasions to knees) Neurologic: moves all extremities and awake; no focal motor deficits Psychiatric: Orientation: alert, oriented x 3 and cooperative Affect: + anxious affect Lymphatic: no lymphedema Results & Data Results & Data ([facility]) Vital Signs (Past 12 Hours) Vital Signs Temp Pulse Resp BP Pulse Ox 08/02/21 11:14 88 16 96 08/02/21 10:52 36.4 C L 64 16 132/67 96 08/02/21 07:54 36.4 C L 64 16 133/70 98 08/02/21 07:25 60 16 97 08/02/21 03:18 36.9 C 55 L 16 125/59 L 98 Laboratory Results 08/02/21 08/02/21 08/02/21 Range/Units 16:14 13:05 10:58 WBC (4.8-10.8) K/uL RBC (4.7-6.1) M/uL Hgb (14.0-18.0) g/dL Hct (42-52) % MCV (80-100) fL MCH (25-34) pg MCHC (32-36) g/dL RDW Std Deviation (36.4-46.3) fL RDW Coeff of Lianne (11.5-14.5) % Plt Count (130-400) K/uL MPV (7.4-10.4) fL PT (9.0-12.0) Seconds INR (0.9-1.1) Sodium (136-145) mmol/L Potassium (3.5-5.1) mmol/L Chloride (98-107) mmol/L Carbon Dioxide (21-32) mmol/L Anion Gap (3-11) BUN (6-23) mg/dl Creatinine (0.6-1.4) mg/dl Est Cr Clr Drug Dosing ml/min Est GFR ( Amer) ml/min Est GFR (Non-Af Amer) ml/min BUN/Creatinine Ratio (10-20) Glucose (70-99(Fasting)) mg/dl POC Glucose 199 H 142 H 141 H (70-99) mg/dl Calcium (8.5-10.1) mg/dl C-Reactive Protein (0-0.5) mg/dl Ref Lab Test Result 08/02/21 08/02/21 08/02/21 Range/Units 09:00 07:56 06:58 WBC (4.8-10.8) K/uL RBC (4.7-6.1) M/uL Hgb (14.0-18.0) g/dL Hct (42-52) % MCV (80-100) fL MCH (25-34) pg MCHC (32-36) g/dL RDW Std Deviation (36.4-46.3) fL RDW Coeff of Lianne (11.5-14.5) % Plt Count (130-400) K/uL MPV (7.4-10.4) fL PT (9.0-12.0) Seconds INR (0.9-1.1) Sodium (136-145) mmol/L Potassium (3.5-5.1) mmol/L Chloride (98-107) mmol/L Carbon Dioxide (21-32) mmol/L Anion Gap (3-11) BUN (6-23) mg/dl Creatinine (0.6-1.4) mg/dl Est Cr Clr Drug Dosing ml/min Est GFR ( Amer) ml/min Est GFR (Non-Af Amer) ml/min BUN/Creatinine Ratio (10-20) Glucose (70-99(Fasting)) mg/dl POC Glucose 132 H 141 H 116 H (70-99) mg/dl Calcium (8.5-10.1) mg/dl C-Reactive Protein (0-0.5) mg/dl Ref Lab Test Result 08/02/21 08/02/2108/02/22 Range/Units 06:52 06:52 06:52 WBC 6.72 (4.8-10.8) K/uL RBC 3.86 L (4.7-6.1) M/uL Hgb 10.6 L (14.0-18.0) g/dL Hct 32.7 L (42-52) % MCV 84.7 (80-100) fL MCH 27.5 (25-34) pg MCHC 32.4 (32-36) g/dL RDW Std Deviation 56.6 H (36.4-46.3) fL RDW Coeff of Lianne 18.2 H (11.5-14.5) % Plt Count 156 (130-400) K/uL MPV 9.6 (7.4-10.4) fL PT 60.2 H (9.0-12.0) Seconds INR 6.2 H* (0.9-1.1) Sodium 139 (136-145) mmol/L Potassium 4.0 (3.5-5.1) mmol/L Chloride 112 H (98-107) mmol/L Carbon Dioxide 20 L (21-32) mmol/L Anion Gap 7 (3-11) BUN 35 H (6-23) mg/dl Creatinine 1.07 (0.6-1.4) mg/dl Est Cr Clr Drug Dosing 75.2 ml/min Est GFR ( Amer) 77.7 ml/min Est GFR (Non-Af Amer) 67.1 ml/min BUN/Creatinine Ratio 32.7 H (10-20) Glucose 110 H (70-99(Fasting)) mg/dl POC Glucose (70-99) mg/dl Calcium 8.7 (8.5-10.1) mg/dl C-Reactive Protein 4.76 H (0-0.5) mg/dl Ref Lab Test Result 08/02/21 08/02/21 08/02/21 Range/Units 06:05 05:36 05:12 WBC (4.8-10.8) K/uL RBC (4.7-6.1) M/uL Hgb (14.0-18.0) g/dL Hct (42-52) % MCV (80-100) fL MCH (25-34) pg MCHC (32-36) g/dL RDW Std Deviation (36.4-46.3) fL RDW Coeff of Lianne (11.5-14.5) % Plt Count (130-400) K/uL MPV (7.4-10.4) fL PT (9.0-12.0) Seconds INR (0.9-1.1) Sodium (136-145) mmol/L Potassium (3.5-5.1) mmol/L Chloride (98-107) mmol/L Carbon Dioxide (21-32) mmol/L Anion Gap (3-11) BUN (6-23) mg/dl Creatinine (0.6-1.4) mg/dl Est Cr Clr Drug Dosing ml/min Est GFR ( Amer) ml/min Est GFR (Non-Af Amer) ml/min BUN/Creatinine Ratio (10-20) Glucose (70-99(Fasting)) mg/dl POC Glucose 110 H 138 H (70-99) mg/dl Calcium (8.5-10.1) mg/dl C-Reactive Protein (0-0.5) mg/dl Ref Lab Test Result 08/02/21 08/02/21 08/02/21 Range/Units 04:07 03:16 02:30 WBC (4.8-10.8) K/uL RBC (4.7-6.1) M/uL Hgb (14.0-18.0) g/dL Hct (42-52) % MCV (80-100) fL MCH (25-34) pg MCHC (32-36) g/dL RDW Std Deviation (36.4-46.3) fL RDW Coeff of Lianne (11.5-14.5) % Plt Count (130-400) K/uL MPV (7.4-10.4) fL PT (9.0-12.0) Seconds INR (0.9-1.1) Sodium (136-145) mmol/L Potassium (3.5-5.1) mmol/L Chloride (98-107) mmol/L Carbon Dioxide (21-32) mmol/L Anion Gap (3-11) BUN (6-23) mg/dl Creatinine (0.6-1.4) mg/dl Est Cr Clr Drug Dosing ml/min Est GFR ( Amer) ml/min Est GFR (Non-Af Amer) ml/min BUN/Creatinine Ratio (10-20) Glucose (70-99(Fasting)) mg/dl POC Glucose 87 94 107 H (70-99) mg/dl Calcium (8.5-10.1) mg/dl C-Reactive Protein (0-0.5) mg/dl Ref Lab Test Result 08/02/21 08/02/21 08/01/21 Range/Units 01:48 00:50 23:44 WBC (4.8-10.8) K/uL RBC (4.7-6.1) M/uL Hgb (14.0-18.0) g/dL Hct (42-52) % MCV (80-100) fL MCH (25-34) pg MCHC (32-36) g/dL RDW Std Deviation (36.4-46.3) fL RDW Coeff of Lianne (11.5-14.5) % Plt Count (130-400) K/uL MPV (7.4-10.4) fL PT (9.0-12.0) Seconds INR (0.9-1.1) Sodium (136-145) mmol/L Potassium (3.5-5.1) mmol/L Chloride (98-107) mmol/L Carbon Dioxide (21-32) mmol/L Anion Gap (3-11) BUN (6-23) mg/dl Creatinine (0.6-1.4) mg/dl Est Cr Clr Drug Dosing ml/min Est GFR ( Amer) ml/min Est GFR (Non-Af Amer) ml/min BUN/Creatinine Ratio (10-20) Glucose (70-99(Fasting)) mg/dl POC Glucose 112 H 124 H 143 H (70-99) mg/dl Calcium (8.5-10.1) mg/dl C-Reactive Protein (0-0.5) mg/dl Ref Lab Test Result 08/01/21 08/01/21 08/01/21 Range/Units 22:08 21:07 20:17 WBC (4.8-10.8) K/uL RBC (4.7-6.1) M/uL Hgb (14.0-18.0) g/dL Hct (42-52) % MCV (80-100) fL MCH (25-34) pg MCHC (32-36) g/dL RDW Std Deviation (36.4-46.3) fL RDW Coeff of Lianne (11.5-14.5) % Plt Count (130-400) K/uL MPV (7.4-10.4) fL PT (9.0-12.0) Seconds INR (0.9-1.1) Sodium (136-145) mmol/L Potassium (3.5-5.1) mmol/L Chloride (98-107) mmol/L Carbon Dioxide (21-32) mmol/L Anion Gap (3-11) BUN (6-23) mg/dl Creatinine (0.6-1.4) mg/dl Est Cr Clr Drug Dosing ml/min Est GFR ( Amer) ml/min Est GFR (Non-Af Amer) ml/min BUN/Creatinine Ratio (10-20) Glucose (70-99(Fasting)) mg/dl POC Glucose 209 H 234 H 282 H (70-99) mg/dl Calcium (8.5-10.1) mg/dl C-Reactive Protein (0-0.5) mg/dl Ref Lab Test Result 08/01/21 08/01/21 Range/Units 19:02 19:01 WBC (4.8-10.8) K/uL RBC (4.7-6.1) M/uL Hgb (14.0-18.0) g/dL Hct (42-52) % MCV (80-100) fL MCH (25-34) pg MCHC (32-36) g/dL RDW Std Deviation (36.4-46.3) fL RDW Coeff of Lianne (11.5-14.5) % Plt Count (130-400) K/uL MPV (7.4-10.4) fL PT (9.0-12.0) Seconds INR (0.9-1.1) Sodium (136-145) mmol/L Potassium (3.5-5.1) mmol/L Chloride (98-107) mmol/L Carbon Dioxide (21-32) mmol/L Anion Gap (3-11) BUN (6-23) mg/dl Creatinine (0.6-1.4) mg/dl Est Cr Clr Drug Dosing ml/min Est GFR ( Amer) ml/min Est GFR (Non-Af Amer) ml/min BUN/Creatinine Ratio (10-20) Glucose (70-99(Fasting)) mg/dl POC Glucose 314 H* 310 H* (70-99) mg/dl Calcium (8.5-10.1) mg/dl C-Reactive Protein (0-0.5) mg/dl Ref Lab Test Result PG Care Time/CCT Total # of Minutes Spent Total Time Spent with Patient: Total time spent is greater than 50% in coordination of care (as documented) at patient's floor/unit and/or counseling patient: Coding Level of Care Code 21886 Subseq Hosp Care Lvl 3 Diagnoses Fall W19.XXXA Acute kidney injury N17.9 Neck pain M54.2 Chronic chest pain R07.9; G89.29 Elevated troponin R77.8 Polymyositis M33.20 Chronic respiratory failure with hypoxia J96.11 CAD (coronary artery disease) I25.10 Associated angina: without angina Coronary Disease-Associated Artery/Lesion type: [place] artery [place] vs. transplanted heart: [place] heart Candidiasis of mouth and esophagus B37.81; B37.0 Chronic kidney disease, stage 3a N18.3 Chronic pulmonary aspiration T17.908A Chronic use of steroids Constipation due to opioid therapy K59.03; T40.2X5A Diabetes E11.42; Z79.4 Diabetes mellitus complication detail: with polyneuropathy Diabetes mellitus complication status: with neurologic complications Diabetes mellitus jail insulin use: with moth exterminator use Diabetes mellitus type: type 2 History of aortic valve replacement Z95.2 History of gastric bypass Z98.84 History of prostate cancer Z85.46 History of seizures Z87.898 HLD (hyperlipidemia) E78.2 Hyperlipidemia type: mixed hyperlipidemia 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; M35.9 PAF (paroxysmal atrial fibrillation) I48.0 Parkinsonism G20 Parkinsonism type: unspecified (1) Diabetes Diabetes mellitus complication detail: with polyneuropathy Diabetes mellitus complication status: with neurologic complications Diabetes mellitus jail insulin use: with moth exterminator use Diabetes mellitus type: type 2 Qualified Code(s): E11.42 - Type 2 diabetes mellitus with diabetic polyneuropathy; Z79.4 - detention (current) use of insulin (2) CAD (coronary artery disease) Associated angina: without angina Coronary Disease-Associated Artery/Lesion type: [place] artery [place] vs. transplanted heart: [place] heart Qualified Code(s): I25.10 - Atherosclerotic heart disease of [place] coronary artery without angina pectoris (3) HLD (hyperlipidemia) Hyperlipidemia type: mixed hyperlipidemia Qualified Code(s): E78.2 - Mixed hyperlipidemia (4) Parkinsonism Parkinsonism type: unspecified Qualified Code(s): G20 - Parkinson's disease
[2021-08-02] MEDS: INSULIN REGULAR 250 UNITS in SODIUM CHLORIDE 0.9% 247.5 ML IV SCH (13:31)
[2021-08-02] MEDS ORDERED: Nursing to Pharmacy Communication SCH (14:30)
--- NOTE | 2021-08-02 17:07 | Progress Note ---
Date of Service August 02, 2021 Pathology Note Clinical pathology consult (high complexity): Starting on May 24, 2021 this patient began having elevated troponin I levels ranging from 27.1 to 41.9. Clinically he did not have definitive symptoms and other findings that would suggest myocardial infarction. His prior troponin levels in 2020 were normal. His troponin was run at an outside laboratory ([facility]) on 08/02/21 which uses the Torres Sled Maker [id number]. At that institution his Troponin I was normal (<0.021 ng/mL, non-HS troponin). The [facility] laboratory also ran a sample of his with the high sensitivity Troponin assay on 08/02/21 (note: HS troponin assay is slated to go-live on 08/11/2021). His high sensitivity troponin here is within the normal reference range for a male (14.1 pg/mL). In the literature there is a case report which closely mirrors this situation. In that case report a 47-year-old woman showed spuriously high Troponin I on a Sivan analyzer but was within normal limits on an Torres Sled Maker [id number] analyzer. 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 At the end of 2020 the [facility] laboratory switched our chemistry analyzer from Siemens to Sivan. This explains why the patients Troponins were within normal range prior to May 24, 2021. 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 His troponin I was normal at [place] using an Torres Sled Maker and was normal on a HS Troponin assay at [facility]. This case was discussed with Dr. Sprague and the [place] laboratory chemistry department. Jone Holt M.D. Reference: Vinod KM, Angel M, Basim N, Lebron M. Spuriously Elevated Cardiac Troponin in the Setting of Atypical Chest Pain Presentation: A Diagnostic Conundrum. [facility] Case Rep. 2019September 16;2(5):[id number]. doi: [email or web address]. PMID: [id number]; PMCID: [id number].
[2021-08-02] MEDS: allopurinoL 100 MG TAB PO SCH (19:49)
[2021-08-02] MEDS: levETIRAcetam 250 MG TAB PO SCH (19:49)
[2021-08-02] MEDS: CHOLECALCIFEROL 1,000 UNITS 25 MCG TAB PO SCH (19:49)
[2021-08-02] MEDS: ATORVASTATIN 40 MG TAB PO SCH (19:50)
[2021-08-02] MEDS: oxyCODONE HCL IR 5 MG TAB (IMMEDIATE RELEASE) PO PRN (19:57)
[2021-08-02] MEDS: INSULIN GLARGINE SOLOSTAR 100 UNITS/ML 3 ML PEN SQ SCH (20:07)
[2021-08-03] MEDS ORDERED: INSULIN ASPART PER UNIT SC ONE (02:00)
[2021-08-03 06:56] LABS: Basophils # (auto) 0.01 K/uL (0-0.2); Basophils % (auto) 0.2 %; Eosinophils # (auto) 0.03 K/uL (0-0.5); Eosinophils % (auto) 0.5 %; Hematocrit (blood only) 34.9 % (42-52); Immature Granulocytes # (auto) 0.12 K/uL (0.00-0.02); Immature Granulocytes % (auto) 2.2 %; Lymphocytes # (auto) 0.83 K/uL (1.2-3.4); Mean Corpuscular Hemoglobin 27.2 pg (25-34); Mean Corpuscular Hgb Conc 31.5 g/dL (32-36); Mean Corpuscular Volume 86.4 fL (80-100); Mean Platelet Volume 9.5 fL (7.4-10.4); Monocytes # (auto) 0.46 K/uL (0.11-0.59); Monocytes % (auto) 8.3 %; Neutrophils # (auto) 4.08 K/uL (1.4-6.5); Neutrophils % (auto) 73.8 %; Platelet Count 163 K/uL (130-400); RDW Coefficient of Variation 18.4 % (11.5-14.5); RDW Standard Deviation 58.3 fL (36.4-46.3); Red Blood Count 4.04 M/uL (4.7-6.1); White Blood Count 5.53 K/uL (4.8-10.8)
[2021-08-03] MEDS: ALBUTEROL HFA 8 GM INHALER INH SCH ×4 (06:59→19:55)
[2021-08-03 07:13] LABS: INR 3.8 (0.9-1.1); Prothrombin Time 37.6 Seconds (9.0-12.0)
[2021-08-03 07:25] LABS: BUN Creatinine Ratio 26.5 (10-20); Calcium 8.7 mg/dl (8.5-10.1); Creatinine Clr Calc Pharmacy 68.5 ml/min; Est GFR (African American) 69.8 ml/min; Est GFR (Non-African American) 60.2 ml/min; Magnesium 1.8 mg/dl (1.7-2.4); Potassium 3.2 mmol/L (3.5-5.1)
[2021-08-03] MEDS ORDERED: POTASSIUM CHLORIDE CRTAB 20 MEQ TABCR PO STA ×2 (07:52→14:51)
[2021-08-03] MEDS ORDERED: MAGNESIUM SULFATE / D5W 1 GM/100 ML BAG IV ONE (08:00)
[2021-08-03] MEDS: INSULIN ASPART PER UNIT SC SCH ×4 (08:03→20:24)
[2021-08-03] MEDS: CARBIDOPA/LEVODOPA 25/100MG TAB PO SCH ×3 (08:04→20:08)
[2021-08-03] MEDS: FLUTICASONE FUROATE 100MCG 14 PUFFS/INHALER INH SCH (08:04)
[2021-08-03] MEDS: ASPIRIN 81 MG ECTAB PO SCH (08:04)
[2021-08-03] MEDS: FINASTERIDE 5 MG TAB PO SCH (08:04)
[2021-08-03] MEDS: POLYETHYLENE (MIRALAX) 17 GM PACK PO SCH ×2 (08:05→20:03)
[2021-08-03] MEDS: SENNA 8.6 MG TAB PO SCH ×2 (08:05→20:08)
[2021-08-03] MEDS: predniSONE 10 MG TABLET PO SCH (08:05)
[2021-08-03] MEDS: oxyCODONE HCL 10 MG TABCR (OxyCONTIN) PO SCH (08:05)
[2021-08-03] MEDS: levETIRAcetam 500 MG TAB PO SCH (08:05)
[2021-08-03] MEDS: NYSTATIN SUSP 500,000 U/5 ML UDC PO SCH ×4 (08:05→20:08)
[2021-08-03] MEDS: UMECLIDINIUM/VILANTEROL 62.5/25MCG 7 PUFFS/INHALER INH SCH (08:06)
[2021-08-03] MEDS: TOPIRAMATE 100 MG TAB PO SCH ×2 (08:06→20:08)
[2021-08-03] MEDS ORDERED: INSULIN HUMAN NPH SC SCH (09:00)
[2021-08-03] MEDS ORDERED: INSULIN GLARGINE SOLOSTAR 100 UNITS/ML 3 ML PEN SQ SCH (09:00)
--- NOTE | 2021-08-03 11:47 | Pharmacy Report ---
Pharmacy Glycemic Short Note 2 - Date of Service August 03, 2021 - Glycemic Short BSG Results (Last 24 hours): 08/02/21 08/02/21 08/02/21 13:05 16:14 19:57 Glucose POC Glucose 142 H 199 H 291 H 08/03/21 08/03/21 08/03/21 01:56 06:21 07:15 Glucose 88 POC Glucose 188 H 102 H 08/03/21 11:33 Glucose POC Glucose 184 H OUTPATIENT ANTIDIABETIC REGIMEN: * Lantus 20 units BID * NPH 10 units daily with prednisone 10 mg daily (typically he adjusts based upon steroid dosing) * Novolog per SS * A1c 6.9% (07/04/21) ASSESSMENT: 08/03 * Transitioned off insulin drip yesterday afternoon * BSG did climb as high as 291 at bedtime, possible residual effects of high dose prednisone given in the prior 24 hrs. * Fasting BSG 102 this AM with 23 basal on board and after receiving correction al insulin last HS and at 0200 this AM. Will up-titrate basal * Patient had refused Novolog prandial dose w/ lunch yesterday, however was agreeable to dose given w/ breakfast today. Pre-lunch BSG 184 which is acceptable. Post-prandial BSGs did rise quickly following dinner yesterday. Will increase prandial dose slightly. 08/02 * BSGs did climb into the 300s yesterday despite initiation of insulin drip, likely due to dietary carb provision in combo with high dose prednisone * Insulin drip did run as high as 9.2 units/hr, but have since been titrated down to 3.4 units/hr and BSGs are now at goal * Today prednisone dose has been reduced to 10mg daily (outpt dose) * Will resume Lantus and NPH this AM using doses similar to those used while inpatient at the end of last month on the same prednisone dosage. * Plan to transition the patient off the insulin drip later today, as the effects of yesterdays Prednisone doses dissipate and SQ insulin takes effect. 08/01 * Type 2 diabetic admitted for fall, weakness, polymyositis, myocarditis/pericarditis * BSGs elevated on admission and continued to be elevated thru thus AM with BSGs in 300s. Of note, pt to start high dose prednisone today as well as receive prednisone as pretreat for contrast allergy * Provider has initiated IV insulin infusion for persistent hyperglycemia in setting of escalating steroid doses. Agree with this therapy. Will without SQ basal at this time and reassess needs tomorrow. Will likely attempt to transition back to a regimen of Lantus + NPH + Novolog tomorrow PLAN FOR INPATIENT GLYCEMIC CONTROL: * Lantus 20 units Q AM + 0-8 units Q HS based upon BSG (see eMAR) * Bolus insulin * Novolog SQ ACHS * Goal range: 110-140 mg/dL * Correction factor: 15mg/dL/unit * Nutritional / Prandial insulin per carb ratio of 1 unit per 3 grams CHO consumed
--- NOTE | 2021-08-03 14:47 | Hospitalist Progress Note ---
Date of Service August 03, 2021 Assessment & Plan (1) Fall: Plan: History of numerous falls over the years. Had another fall on Sunday, 07/29 (slid off his bed at home onto the floor). He admitted to feeling quite weak upon return home after his recent hospital stay for RLL pneumonia. He does not have any apparent injuries. R shoulder x-rays, cxr, CT head, CT cervical spine - all negative for injury or ICH. On clinical exam he has no evidence of injury/fracture to his pelvis or hips. No rhabdomyolysis with normal CPK. B12 level, TSH, sodium, K, and mag levels have been wnl except mild hypokalemia today No obvious infectious process - COVID/flu/RSV negative; ua not suggestive of UTI; no obvious worsening pneumonia on cxr. 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 In this case it would have been compounded by significant deconditioning in the setting of multiple recent hospital stays. PT/OT consults. Really should not be living alone unless he has 24/7 support. (2) Acute kidney injury: Plan: Baseline Cr about 1.1. Cr at presentation - 1.6 - prerenal/dehydration. SHYANN now resolved after IVF hydration Okay to restart home lasix follow BMP in the morning (3) Neck pain: Plan: 2nd to fall. negative CT c-spine for fractures. No c/o pain today. (4) Chronic chest pain: Plan: All troponins in the past were normal until this April 2021 when he presented to [facility] with constant chest pain and was found to have a troponin consistently in the high 20s to low 40s. He was felt to have myocarditis - either 2nd to viral etiology or autoimmune/inflammatory. He was placed on higher amounts of prednisone (takes 10mg chronically) and colchicine. Despite such his pains never resolved, and his troponin has remained in the 30- 35 range since that time. On 05/25/21 Dr Stevan Vincent performed a cath and his previous stents were patent. No areas of high-grade stenosis were seen. Echo has continued to show intact LV function. During his recent stay at [facility] he underwent a cardiac MRI which, by report, was normal (no evidence of infiltrative disease such as sarcoid/amyloid, etc). Cause of troponin elevation was uncertain. At his recent office visit with Dr Shipley, [facility] in [place], his colchicine & leflunomide were both stopped due to lack of evidence of myocarditis/pericarditis. Troponin on 07/31/21 was 41. (perhaps due to the fall and laying on ground). Then troponin 35 which is consistent with previous values for 3-4 months now. With the persistent chest pain and elevated troponin could he have aortitis?---> MRA Chest negative for such on 08/01 He does have a history of thoracic aortic dissection s/p repair. Sent troponin test to [facility] for verification on 08/02 and was found to be normal. 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 Jone Holt's note from 08/02 regarding this matter. Overall, troponin is normal and likely has been normal this entire 3 month period. Has been seen by Pulmonology, Rheumatology, and Cardiology at various institutions. The only other thought other than MSK would be is this GI related as he has a h/o lap band surgery? He plans on following up with [facility] after dischar ge. Pt would like to taper off opioids for fear of becoming dependent--> dc evening dose of Oxycontin 10mg and continue with once daily dosing in the morning with oxycodone immediate release for breakthrough pain -suggested Acupuncture, chiropractor also for MSK pain Overall, his pain is much improved and he is in better spirits on 08/03 (5) Elevated troponin: Plan: see above (6) Polymyositis: Plan: Follows with Dr Britton Shipley, [facility]. Apparently had had a polymyositis panel in the past showing MDA5 level elevation (per Dr Shipley - his level was 34, normal being <20). He has had positive anti-CCP ab and aldolase levels in the past. All CPK levels however, both past & present, have been normal. He is on chronic prednisone therapy for this condition. CRP elevated at 14 on 07/31 - due to recent pneumonia? due to stress of his fall? other process? repeat CRP now down to 4 without any antibiotic therapy. now off leflunomide, cochicine remains on prednisone 10mg daily prednisone 60mg daily did NOT help his chest pain at all which argues against an inflammatory process (7) Chronic respiratory failure with hypoxia: Plan: On home O2 but not needing this here- there has been concern in the past for ILD but has never been fully proven. Previous biopsies in [place] of the left lung were inconclusive for ILD. He has been evaluated at the [facility] - they, too, felt that ILD was not present and that his chest CT findings are likely more c/w chronic aspiration. He follows with Dr Wiliam Ortega - [facility] [place] [facility]. He just saw Dr Ortega in the clinic - he also feels that his chronic respiratory issues are likely from chronic aspiration but does not feel a bronchoscopy would be prudent at this time. During his recent hospitalization at [facility] he was seen by pulmonary. Underwent yet another NON-contrast chest CT. [facility] felt that the CT findings were more c/w chronic aspiration rather than an ILD process. he plans on f/u with ILD clinic at [facility] after discharge Of note, the patient is very upset that he is getting differing opinions from different pulmonologists and does not believe that he truly aspirates (8) CAD (coronary artery disease): Plan: Previous cath 04/2021 with patent stents. Continue statin. not on BB. -can now restart ASA 81mg daily now that off colchicine (was held while on colchicine) (9) Candidiasis of mouth and esophagus: Plan: Nystatin solution 5cc qid swish/spit. Improved. (10) Chronic kidney disease, stage 3a: Plan: Baseline Cr about 1 to 1.1. Baseline CrCl 50s/60s. SHYANN as above now reoslved BMP in am. (11) Chronic pulmonary aspiration: Plan: Suspected - [facility], [facility] [place] [facility], [facility], etc - all feel that this is more likely the cause of his chronic pulmonary issues as opposed to ILD. FEES study by speech therapy last done on 12/08/20. This confirmed silent aspiration. The mechanism of his aspiration is due to pharyngeal pooling of liquid per speech. Speech reported that a solution to his dysphagia was not possible. This was quite upsetting to the patient He reports he has had speech therapy since then and has learned types of foods that he can eat and ways to eat to prevent aspiration Aspiration precautions - head of bed at 30 degrees at all times, etc. (12) Chronic use of steroids: Plan: Prednisone 10mg/day for polymyositis. There has been ?RA in the past but no joint manifestations of such. Dermatomyositis has also been entertained as a diagnosis. received high dose prednisone 08/01 for contrast dye allergy, now back on 10mg daily (13) Constipation due to opioid therapy: Plan: Continue a bowel regimen. moving bowels (14) Diabetes: Plan: Hba1c 6.9% in June. BSGs have been elevated since admission. hyperglycemia secondary to high dose steroids for contrast dye allergy--> was on insulin gtt and now weaned off today continue basal-bolus insulin Consult pharmacy glycemic team for assistance. (15) History of aortic valve replacement: Plan: 2003. Mechanical. INR goal range 2.5 to 3.5. Fortunately no ICH or other bleeding from his recent fall. INR now down to 3.8 after holding Coumadin for several days, no evidence of bleeding from anywhere probably INR was higher secondary to higher dose prednisone Restart Coumadin at 2 mg daily today (baseline is 5 mg daily) INR qam while here. (16) History of gastric bypass: Plan: lap band actually see above Follow-up with GI as an outpatient to see if needs EGD (17) History of prostate cancer: Plan: s/p radiation (18) History of seizures: Plan: Continue gabapentin, topamax, keppra. No recent seizures. Last keppra level was 03/2021 and was within goal range. Can't rule out a seizure leading to his fall on 07/29 but felt to be unlikely. tapering down on Keppra dose as per outpt Neuro notes to 1000/750mg now (19) HLD (hyperlipidemia): Plan: Continue lipitor. CPK wnl. (20) Interstitial lung disease due to connective tissue disease: Plan: Suspected but unlikely. ILD has been suspected for several years but nothing has confirmed that diagnosis including previous biopsy. See above. Plans on following up with [facility] pulmonary ILD clinic (21) PAF (paroxysmal atrial fibrillation): Plan: On chronic coumadin. He is not on AV elysia agents or antiarrhythmics chronically due to bradycardia Since admission remains in NSR. (22) Parkinsonism: Plan: Continue carbidopa-levodopa TID. Plan: Dispo-continued stay but plan for discharge home tomorrow with home health. He refuses SNF so will need home health and 20/11 care Admission and Anticipated Discharge Date Admission Date: August 01, 2021 Subjective Patient reports he is feeling much better today. He got a good night's rest. His chest pain is much improved and he is down to a very mild dull ache on the left side. He is very pleased with this. He was also pleased to find out that his troponin has been a false positive for the last several months. He reports he refused the OxyContin this morning and that he is not been taking OxyContin at home-I did confirm this on the [facility] website. He wants to try to come off all oxycodone. He does feel like he is getting all the swollen and would like his Lasix restarted. Overall in good spirits and ambulating around the alas with physical therapy, feels stronger, and feels like he can go home tomorrow afternoon. Telemetry with normal sinus rhythm, blocked PACs, PVCs, rates in the 50s to 60s Review of Systems Review of Systems: All systems reviewed & are unremarkable except as noted in HPI & below Physical Exam Constitutional: WD/WN, vitals as above Eyes: + anicteric sclerae Neck: trachea midline, no thyromegaly Respiratory: normal respiratory effort, lungs clear to auscultation Cardiovascular: RRR, no murmur, no edema (With S2 click) Chest (Breasts): Chest: normal inspection of chest (And no tenderness to palpation) Gastrointestinal (Abdomen): normal bowel sounds, soft, nontender, no hepatosplenomegaly Musculoskeletal: Extremities: extremities normal to inspection; no cyanosis and no clubbing Skin: no rashes, warm and dry (a few minor abrasions to knees) Neurologic: moves all extremities and awake; no focal motor deficits Psychiatric: Orientation: alert, oriented x 3 and cooperative Affect: euthymic affect Lymphatic: no lymphedema Results & Data Results & Data ([facility]) Vital Signs (Past 12 Hours) Vital Signs Temp Pulse Pulse Resp BP Pulse Ox 08/03/21 11:50 36.8 C 76 22 131/71 96 08/03/21 11:11 68 17 98 08/03/21 07:13 36.5 C 53 L 16 128/66 96 08/03/21 07:01 53 L 18 97 08/03/21 03:54 36.5 C 50 L 16 117/65 95 Laboratory Results 08/03/21 08/03/21 08/03/21 Range/Units 16:35 11:33 07:15 WBC (4.8-10.8) K/uL RBC (4.7-6.1) M/uL Hgb (14.0-18.0) g/dL Hct (42-52) % MCV (80-100) fL MCH (25-34) pg MCHC (32-36) g/dL RDW Std Deviation (36.4-46.3) fL RDW Coeff of Lianne (11.5-14.5) % Plt Count (130-400) K/uL MPV (7.4-10.4) fL Immature Gran % (Auto) % Neut % (Auto) % Lymph % (Auto) % [place] % (Auto) % Eos % (Auto) % Baso % (Auto) % Neut # (Auto) (1.4-6.5) K/uL Lymph # (Auto) (1.2-3.4) K/uL [place] # (Auto) (0.11-0.59) K/uL Eos # (Auto) (0-0.5) K/uL Baso # (Auto) (0-0.2) K/uL Immature Gran # (Auto) (0.00-0.02) K/uL PT (9.0-12.0) Seconds INR (0.9-1.1) Sodium (136-145) mmol/L Potassium (3.5-5.1) mmol/L Chloride (98-107) mmol/L Carbon Dioxide (21-32) mmol/L Anion Gap (3-11) BUN (6-23) mg/dl Creatinine (0.6-1.4) mg/dl Est Cr Clr Drug Dosing ml/min Est GFR ( Amer) ml/min Est GFR (Non-Af Amer) ml/min BUN/Creatinine Ratio (10-20) Glucose (70-99(Fasting)) mg/dl POC Glucose 219 H 184 H 102 H (70-99) mg/dl Calcium (8.5-10.1) mg/dl Magnesium (1.7-2.4) mg/dl 0408/03/21 08/03/21 Range/Units 06:21 06:21 06:21 WBC 5.53 (4.8-10.8) K/uL RBC 4.04 L (4.7-6.1) M/uL Hgb 11.0 L (14.0-18.0) g/dL Hct 34.9 L (42-52) % MCV 86.4 (80-100) fL MCH 27.2 (25-34) pg MCHC 31.5 L (32-36) g/dL RDW Std Deviation 58.3 H (36.4-46.3) fL RDW Coeff of Lianne 18.4 H (11.5-14.5) % Plt Count 163 (130-400) K/uL MPV 9.5 (7.4-10.4) fL Immature Gran % (Auto) 2.2 % Neut % (Auto) 73.8 % Lymph % (Auto) 15.0 % [place] % (Auto) 8.3 % Eos % (Auto) 0.5 % Baso % (Auto) 0.2 % Neut # (Auto) 4.08 (1.4-6.5) K/uL Lymph # (Auto) 0.83 L (1.2-3.4) K/uL [place] # (Auto) 0.46 (0.11-0.59) K/uL Eos # (Auto) 0.03 (0-0.5) K/uL Baso # (Auto) 0.01 (0-0.2) K/uL Immature Gran # (Auto) 0.12 H (0.00-0.02) K/uL PT 37.6 H (9.0-12.0) Seconds INR 3.8 H (0.9-1.1) Sodium 140 (136-145) mmol/L Potassium 3.2 L (3.5-5.1) mmol/L Chloride 112 H (98-107) mmol/L Carbon Dioxide 22 (21-32) mmol/L Anion Gap 6 (3-11) BUN 31 H (6-23) mg/dl Creatinine 1.17 (0.6-1.4) mg/dl Est Cr Clr Drug Dosing 68.5 ml/min Est GFR ( Amer) 69.8 ml/min Est GFR (Non-Af Amer) 60.2 ml/min BUN/Creatinine Ratio 26.5 H (10-20) Glucose 88 (70-99(Fasting)) mg/dl POC Glucose (70-99) mg/dl Calcium 8.7 (8.5-10.1) mg/dl Magnesium 1.8 (1.7-2.4) mg/dl 08/03/21 08/02/21 Range/Units 01:56 19:57 WBC (4.8-10.8) K/uL RBC (4.7-6.1) M/uL Hgb (14.0-18.0) g/dL Hct (42-52) % MCV (80-100) fL MCH (25-34) pg MCHC (32-36) g/dL RDW Std Deviation (36.4-46.3) fL RDW Coeff of Lianne (11.5-14.5) % Plt Count (130-400) K/uL MPV (7.4-10.4) fL Immature Gran % (Auto) % Neut % (Auto) % Lymph % (Auto) % [place] % (Auto) % Eos % (Auto) % Baso % (Auto) % Neut # (Auto) (1.4-6.5) K/uL Lymph # (Auto) (1.2-3.4) K/uL [place] # (Auto) (0.11-0.59) K/uL Eos # (Auto) (0-0.5) K/uL Baso # (Auto) (0-0.2) K/uL Immature Gran # (Auto) (0.00-0.02) K/uL PT (9.0-12.0) Seconds INR (0.9-1.1) Sodium (136-145) mmol/L Potassium (3.5-5.1) mmol/L Chloride (98-107) mmol/L Carbon Dioxide (21-32) mmol/L Anion Gap (3-11) BUN (6-23) mg/dl Creatinine (0.6-1.4) mg/dl Est Cr Clr Drug Dosing ml/min Est GFR ( Amer) ml/min Est GFR (Non-Af Amer) ml/min BUN/Creatinine Ratio (10-20) Glucose (70-99(Fasting)) mg/dl POC Glucose 188 H 291 H (70-99) mg/dl Calcium (8.5-10.1) mg/dl Magnesium (1.7-2.4) mg/dl PG Care Time/CCT Total # of Minutes Spent Total Time Spent with Patient: Total time spent is greater than 50% in coordination of care (as documented) at patient's floor/unit and/or counseling patient: Coding Level of Care Code 57087 Subseq Hosp Care Lvl 3 Diagnoses Fall W19.XXXA Acute kidney injury N17.9 Neck pain M54.2 Chronic chest pain R07.9; G89.29 Elevated troponin R77.8 Polymyositis M33.20 Chronic respiratory failure with hypoxia J96.11 CAD (coronary artery disease) I25.10 Associated angina: without angina Coronary Disease-Associated Artery/Lesion type: [place] artery [place] vs. transplanted heart: [place] heart Candidiasis of mouth and esophagus B37.81; B37.0 Chronic kidney disease, stage 3a N18.3 Chronic pulmonary aspiration T17.908A Chronic use of steroids Constipation due to opioid therapy K59.03; T40.2X5A Diabetes E11.42; Z79.4 Diabetes mellitus complication detail: with polyneuropathy Diabetes mellitus complication status: with neurologic complications Diabetes mellitus group home insulin use: with group home use Diabetes mellitus type: type 2 History of aortic valve replacement Z95.2 History of gastric bypass Z98.84 History of prostate cancer Z85.46 History of seizures Z87.898 HLD (hyperlipidemia) E78.2 Hyperlipidemia type: mixed hyperlipidemia 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; M35.9 PAF (paroxysmal atrial fibrillation) I48.0 Parkinsonism G20 Parkinsonism type: unspecified (1) Diabetes Diabetes mellitus complication detail: with polyneuropathy Diabetes mellitus complication status: with neurologic complications Diabetes mellitus terminal clerk insulin use: with group home use Diabetes mellitus type: type 2 Qualified Code(s): E11.42 - Type 2 diabetes mellitus with diabetic polyneuropathy; Z79.4 - medical terminologist (current) use of insulin (2) CAD (coronary artery disease) Associated angina: without angina Coronary Disease-Associated Artery/Lesion type: [place] artery [place] vs. transplanted heart: [place] heart Qualified Code(s): I25.10 - Atherosclerotic heart disease of [place] coronary artery without angina pectoris (3) HLD (hyperlipidemia) Hyperlipidemia type: mixed hyperlipidemia Qualified Code(s): E78.2 - Mixed hyperlipidemia (4) Parkinsonism Parkinsonism type: unspecified Qualified Code(s): G20 - Parkinson's disease
[2021-08-03] MEDS ORDERED: WARFARIN SOD 2 MG TAB PO SCH (16:00)
[2021-08-03] MEDS: FUROSEMIDE 20 MG TAB PO SCH (16:06)
[2021-08-03] MEDS: oxyCODONE HCL IR 5 MG TAB (IMMEDIATE RELEASE) PO PRN (20:07)
[2021-08-03] MEDS: levETIRAcetam 250 MG TAB PO SCH (20:08)
[2021-08-03] MEDS: CHOLECALCIFEROL 1,000 UNITS 25 MCG TAB PO SCH (20:08)
[2021-08-03] MEDS: allopurinoL 100 MG TAB PO SCH (20:08)
[2021-08-03] MEDS: ATORVASTATIN 40 MG TAB PO SCH (20:08)
[2021-08-03] MEDS: INSULIN GLARGINE SOLOSTAR 100 UNITS/ML 3 ML PEN SQ SCH (20:24)
[2021-08-04] MEDS: oxyCODONE HCL IR 5 MG TAB (IMMEDIATE RELEASE) PO PRN (00:56)
[2021-08-04 06:45] LABS: INR 2.7 (0.9-1.1); Prothrombin Time 26.9 Seconds (9.0-12.0)
[2021-08-04 06:58] LABS: BUN Creatinine Ratio 19.3 (10-20); Calcium 8.3 mg/dl (8.5-10.1); Creatinine Clr Calc Pharmacy 66.8 ml/min; Est GFR (African American) 68.4 ml/min; Magnesium 1.9 mg/dl (1.7-2.4); Potassium 3.7 mmol/L (3.5-5.1)
[2021-08-04] MEDS: ALBUTEROL HFA 8 GM INHALER INH SCH ×3 (07:29→14:15)
[2021-08-04] MEDS ORDERED: POTASSIUM CHLORIDE CRTAB 20 MEQ TABCR PO STA (07:57)
[2021-08-04] MEDS: ASPIRIN 81 MG ECTAB PO SCH (08:25)
[2021-08-04] MEDS: CARBIDOPA/LEVODOPA 25/100MG TAB PO SCH (08:26)
[2021-08-04] MEDS: FINASTERIDE 5 MG TAB PO SCH (08:26)
[2021-08-04] MEDS: UMECLIDINIUM/VILANTEROL 62.5/25MCG 7 PUFFS/INHALER INH SCH (08:27)
[2021-08-04] MEDS: FLUTICASONE FUROATE 100MCG 14 PUFFS/INHALER INH SCH (08:27)
[2021-08-04] MEDS: FUROSEMIDE 20 MG TAB PO SCH (08:28)
[2021-08-04] MEDS: levETIRAcetam 500 MG TAB PO SCH (08:29)
[2021-08-04] MEDS: NYSTATIN SUSP 500,000 U/5 ML UDC PO SCH ×2 (08:30→13:00)
[2021-08-04] MEDS: POLYETHYLENE (MIRALAX) 17 GM PACK PO SCH (08:31)
[2021-08-04] MEDS: TOPIRAMATE 100 MG TAB PO SCH (08:31)
[2021-08-04] MEDS: predniSONE 10 MG TABLET PO SCH (08:31)
[2021-08-04] MEDS: SENNA 8.6 MG TAB PO SCH (08:32)
[2021-08-04] MEDS: MAGNESIUM SULFATE / D5W 1 GM/100 ML BAG IV SCH ×2 (08:44→10:53)
[2021-08-04] MEDS: oxyCODONE HCL 10 MG TABCR (OxyCONTIN) PO SCH (08:48)
[2021-08-04] MEDS ORDERED: INSULIN GLARGINE SOLOSTAR 100 UNITS/ML 3 ML PEN SQ SCH (09:00)
[2021-08-04] MEDS ORDERED: INSULIN HUMAN NPH SC SCH (09:00)
[2021-08-04] MEDS: INSULIN ASPART PER UNIT SC SCH ×2 (09:05→12:21)
--- NOTE | 2021-08-04 11:24 | Pharmacy Report ---
Pharmacy Glycemic Short Note 2 - Date of Service August 04, 2021 - Glycemic Short BSG Results (Last 24 hours): 08/03/21 08/03/21 08/03/21 11:33 16:35 20:10 Glucose POC Glucose 184 H 219 H 227 H 08/04/21 08/04/21 08/04/21 05:54 07:30 11:16 Glucose 100 H POC Glucose 113 H 186 H OUTPATIENT ANTIDIABETIC REGIMEN: * Lantus 20 units BID * NPH 10 units daily with prednisone 10 mg daily (typically he adjusts based upon steroid dosing) * Novolog per SS * A1c 6.9% (07/04/21) ASSESSMENT: 08/04 * Stressors stable * Post-prandial BSG's elevated yesterday, despite tightening on Novolog * AM fasting BSG good * Will not tighten CHO ratio further as it was recently tightened, but will increase NPH to cover prednisone effects better. Will decrease Lantus to help prevent AM hypoglycemia with increase in NPH 08/03 * Transitioned off insulin drip yesterday afternoon * BSG did climb as high as 291 at bedtime, possible residual effects of high dose prednisone given in the prior 24 hrs. * Fasting BSG 102 this AM with 23 basal on board and after receiving correctional insulin last HS and at 0200 this AM. Will up-titrate basal * Patient had refused Novolog prandial dose w/ lunch yesterday, however was a greeable to dose given w/ breakfast today. Pre-lunch BSG 184 which is acceptable. Post-prandial BSGs did rise quickly following dinner yesterday. Will increase prandial dose slightly. 08/02 * BSGs did climb into the 300s yesterday despite initiation of insulin drip, likely due to dietary carb provision in combo with high dose prednisone * Insulin drip did run as high as 9.2 units/hr, but have since been titrated down to 3.4 units/hr and BSGs are now at goal * Today prednisone dose has been reduced to 10mg daily (outpt dose) * Will resume Lantus and NPH this AM using doses similar to those used while inpatient at the end of last month on the same prednisone dosage. * Plan to transition the patient off the insulin drip later today, as the effects of yesterdays Prednisone doses dissipate and SQ insulin takes effect. 08/01 * Type 2 diabetic admitted for fall, weakness, polymyositis, myocarditis/pericarditis * BSGs elevated on admission and continued to be elevated thru thus AM with BSGs in 300s. Of note, pt to start high dose prednisone today as well as receive prednisone as pretreat for contrast allergy * Provider has initiated IV insulin infusion for persistent hyperglycemia in setting of escalating steroid doses. Agree with this therapy. Will without SQ basal at this time and reassess needs tomorrow. Will likely attempt to transition back to a regimen of Lantus + NPH + Novolog tomorrow PLAN FOR INPATIENT GLYCEMIC CONTROL: * Lantus 20 units Q AM + 0-8 units Q HS based upon BSG (see eMAR) * Bolus insulin * Novolog SQ ACHS * Goal range: 110-140 mg/dL * Correction factor: 15mg/dL/unit * Nutritional / Prandial insulin per carb ratio of 1 unit per 3 grams CHO consumed
--- NOTE | 2021-08-04 11:43 | Discharge Summary ---
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 Had negative cardiac [place] [facility] and thus myocarditis was ruled out. Seen by pulmonary at [facility] - ILD was NOT suspected based on the available data. The cause of the troponin elevation was not certain. He was released to home in [place]. After that stay he saw his primary licensed therapist, Dr Buckley at [facility] - leflunomide & colchicine (prescribed for concern for myocarditis) were both stopped. Unfortunately got readmitted to [facility] on 07/20 for RLL pneumonia and discharged on 07/28/21. Rehab was recommended but unfortunately inpatient rehab was denied by his insurance. He did not want SNF level placement and thus returned home with [facility]. Patient states when he got home he "felt ok" but was weak. He was eating/drinking and his last meal was Sunday evening at dinner-time. About 6pm on Sunday, 07/29, he "slid off his bed" onto the floor. He denied havin g loss of consciousness. Denied any head trauma. He doesn't recall having any fever or other infectious symptoms that day. From 6pm Sunday night to Sunday morning about 9-10am he laid on the floor. He had no ability to get to his phone and his life alert device wasn't working. Went without any medications on Sunday pm. Sunday am he somehow managed to commando-crawl to his living room and got up on the couch. He found his phone and called his neighbor. The neighbor helped him into the chair in the living room. He had some liquid intake that afternoon. His neighbor encouraged him to go to the hospital but he declined. He also mentions he did not have his oxygen during this time period. Again he had no medications except his coumadin and took 10mg last pm. This am he was unable to get up out of his chair & thus he called his son. His son had been out of town but was back in [place] by this am. The son came to his house and called 911 for him. During my ER assessment he c/o left sided temporal headache, posterior neck pain, right shoulder pain, and minimal amount of left shoulder pain. Denied pelvic pain. He continues with his baseline chest pain, 6/10, over the left chest. This is the same pain he has had since late April 2021. Troponin today is 41.6. Principal Diagnosis Fall, generalized weakness, chronic chest pain Discharge Exam Constitutional WD/WN, vitals as above Eyes + anicteric sclerae ENMT external ear and nose normal, oropharynx normal Neck trachea midline, no thyromegaly Respiratory normal respiratory effort, lungs clear to auscultation Cardiovascular RRR, no murmur, no edema (With S2 click) Chest (Breasts) Chest: normal inspection of chest (And no tenderness to palpation) Gastrointestinal (Abdomen) normal bowel sounds, soft, nontender, no hepatosplenomegaly Musculoskeletal Extremities: extremities normal to inspection; no cyanosis and no clubbing Skin no rashes, warm and dry (a few minor abrasions to knees) Neurologic moves all extremities and awake; no focal motor deficits Psychiatric Orientation: alert, oriented x 3 and cooperative Affect: euthymic affect Lymphatic no lymphedema Discharge Data Allergies Allergy/AdvReac Type Severity Reaction Status Date / Time Iodinated Contrast Media Allergy Severe Anaphylaxis Verified 07/20/21 22:44 shellfish derived Allergy Severe Anaphylaxis Verified 07/20/21 22:44 tamsulosin [From Flomax] Allergy Intermediate Itching Verified 07/20/21 22:44 Tetanus Vaccines and Toxoid Allergy Unknown Unknown Verified 07/20/21 22:44 Consultations 07/31/21 10:06 ED Decision to Admit Stat Ordered Studies 07/31/21 07:25 CT head/brain wo con Stat 07/31/21 10:30 CT cervical spine wo con Stat 08/01/21 22:00 MR angio chest wo/w con Routine Hospital Course (1) Fall: History of numerous falls over the years. Had another fall on Sunday, 07/29 (slid off his bed at home onto the floor). He admitted to feeling quite weak upon return home after his recent hospital stay for RLL pneumonia. He does not have any apparent injuries. R shoulder x-rays, cxr, CT head, CT cervical spine - all negative for injury or ICH. On clinical exam he has no evidence of injury/fracture to his pelvis or hips. No rhabdomyolysis with normal CPK. B12 level, TSH, sodium, K, and mag levels have been wnl except mild hypokalemia today No obvious infectious process - COVID/flu/RSV negative; ua not suggestive of UTI; no obvious worsening pneumonia on cxr. 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 In this case it would have been compounded by significant deconditioning in the setting of multiple recent hospital stays. PT/OT consults appreciated-he is doing much improved and was ambulating around the alas prior to discharge Really should not be living alone unless he has 24/7 support. (2) Acute kidney injury: Baseline Cr about 1.1. Cr at presentation - 1.6 - prerenal/dehydration. SHYANN now resolved after IVF hydration Have since restarted home lasix and doing fine (3) Neck pain: 2nd to fall. negative CT c-spine for fractures. No c/o pain today. (4) Chronic chest pain: All troponins in the past were normal until this April 2021 when he presented to [facility] with constant chest pain and was found to have a troponin consistently in the high 20s to low 40s. He was felt to have myocarditis - either 2nd to viral etiology or autoimmune/inflammatory. He was placed on higher amounts of prednisone (takes 10mg chronically) and colchicine. Despite such his pains never resolved, and his troponin has remained in the 30- 35 range since that time. On 05/25/21 Dr Stevan Vincent performed a cath and his previous stents were patent. No areas of high-grade stenosis were seen. Echo has continued to show intact LV function. During his recent stay at [facility] he underwent a cardiac MRI which, by report, was normal (no evidence of infiltrative disease such as sarcoid/amyloid, etc). Cause of troponin elevation was uncertain. At his recent office visit with Dr Shipley, [facility] in [place], his colchicine & leflunomide were both stopped due to lack of evidence of myocarditis/pericarditis. Troponin on 07/31/21 was 41. (perhaps due to the fall and laying on ground). Then troponin 35 which is consistent with previous values for 3-4 months now. With the persistent chest pain and elevated troponin could he have aortitis?---> MRA Chest negative for such on 08/01 He does have a history of thoracic aortic dissection s/p repair. Sent troponin test to [facility] for verification on 08/02 and was found to be normal. 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 Jone Holt's note from 08/02 regarding this matter. Overall, troponin is normal and likely has been normal this entire 3 month period. Has been seen by Pulmonology, Rheumatology, and Cardiology at various instit utions. The only other thought other than MSK would be is this GI related as he has a h/o lap band surgery? He plans on following up with [facility] after discharge. 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 Apparently had had a polymyositis panel in the past showing MDA5 level elevation (per Dr Shipley - his level was 34, normal being <20). He has had positive anti-CCP ab and aldolase levels in the past. All CPK levels however, both past & present, have been normal. He is on chronic prednisone therapy for this condition. CRP elevated at 14 on 07/31 - due to recent pneumonia? due to stress of his fall? other process? repeat CRP now down to 4 without any antibiotic therapy. now off leflunomide, jorge remains on prednisone 10mg daily prednisone 60mg daily did NOT help his chest pain at all which argues against an inflammatory process Follow-up with rheumatology as an outpatient (7) Chronic respiratory failure with hypoxia: On home O2 but not needing this here- there has been concern in the past for ILD but has never been fully proven. Previous biopsies in [place] of the left lung were inconclusive for ILD. He has been evaluated at the [facility] - they, too, felt that ILD was not present and that his chest CT findings are likely more c/w chronic aspiration. He follows with Dr Wiliam Ortega - [facility]. He just saw Dr Ortega in the clinic - he also feels that his chronic respiratory issues are likely from chronic aspiration but does not feel a bronchoscopy would be prudent at this time. During his recent hospitalization at [facility] he was seen by pulmonary. Underwent yet another NON-contrast chest CT. [facility] felt that the CT findings were more c/w chronic aspiration rather than an ILD process. he plans on f/u with ILD clinic at [facility] after discharge Of note, the patient is very upset that he is getting differing opinions from different pulmonologists and does not believe that he truly aspirates (8) CAD (coronary artery disease): Previous cath 04/2021 with patent stents. Continue statin. not on BB due to chronic bradycardia -can now restart ASA 81mg daily now that off colchicine (was held while on colchicine) (9) Candidiasis of mouth and esophagus: Nystatin solution 5cc qid swish/spit. Improved. No further treatment needed (10) Chronic kidney disease, stage 3a: Baseline Cr about 1 to 1.1. Baseline CrCl 50s/60s. SHYANN as above now reoslved Follow as an outpatient (11) Chronic pulmonary aspiration: Suspected - [facility], [facility], [facility], etc - all feel that this is more likely the cause of his chronic pulmonary issues as opposed to ILD. FEES study by speech therapy last done on 12/08/20. This confirmed silent aspiration. The mechanism of his aspiration is due to pharyngeal pooling of liquid per speech. Speech reported that a solution to his dysphagia was not possible. This was quite upsetting to the patient He reports he has had speech therapy since then and has learned types of foods that he can eat and ways to eat to prevent aspiration Aspiration precautions - head of bed at 30 degrees at all times, etc. (12) Chronic use of steroids: Prednisone 10mg/day for polymyositis. There has been ?RA in the past but no joint manifestations of such. Dermatomyositis has also been entertained as a diagnosis. received high dose prednisone 08/01 for contrast dye allergy, now back on 10mg daily (13) Constipation due to opioid therapy: Continue a bowel regimen. moving bowels (14) Diabetes: Hba1c 6.9% in June. hyperglycemia secondary to high dose steroids for contrast dye allergy--> was on insulin gtt and now weaned off continue basal-bolus insulin upon discharge with home regimen . (15) History of aortic valve replacement: 2003. Mechanical. INR goal range 2.5 to 3.5. Fortunately no ICH or other bleeding from his recent fall. INR was up to 6.2 with high-dose steroids-now down to 2.4 after holding Coumadin for several days Continue Coumadin 7.5 mg daily starting today with resumption of his usual dosing after discharge which is 7.5 mg on all days except Tuesdays and 5 mg He has a home INR machine and will check his INR on Sunday Follows with PCP (16) History of gastric bypass: lap band actually see above Follow-up with GI as an outpatient to see if needs EGD to see if this could be contributing to his chronic left-sided chest pain (17) History of prostate cancer: s/p radiation (18) History of seizures: Continue gabapentin, topamax, keppra. No recent seizures. Last keppra level was 03/2021 and was within goal range. Can't rule out a seizure leading to his fall on 07/29 but felt to be unlikely. tapering down on Keppra dose as per outpt Neuro notes to 1000/750mg now Follow-up with neurology as an outpatient (19) HLD (hyperlipidemia): Continue lipitor. CPK wnl. (20) Interstitial lung disease due to connective tissue disease: Suspected but unlikely. ILD has been suspected for several years but nothing has confirmed that diagnosis including previous biopsy. See above. Plans on following up with [facility] pulmonary ILD clinic (21) PAF (paroxysmal atrial fibrillation): On chronic coumadin. He is not on AV elysia agents or antiarrhythmics chronically due to bradycardia Since admission remains in NSR. (22) Parkinsonism: Continue carbidopa-levodopa TID. Dispo- stable for discharge to home. PT/OT initially recommended SNF but he declines this-he is willing to have energy PT come to the home for PT and OT several times per week-prescription written for this Total Time Total Time Spent Total Time Spent (In Minutes): 45 minutes Discharge Plan Discharge Items Patient Disposition: Home - Self-Care Reason For Visit: FALL, WEAKNESS, BACK & R SHOULDER PAIN Discharge Diagnosis: Fall, generalized weakness, acute kidney injury, chronic chest pain Condition on Discharge: Good Activity: As commented below Lifting: Gradually increase as tolerated Bathing: No limitations Exercise/Sports: Gradually increase as tolerated Exercise Comment: with home PT/OT Non-emergency contact: Primary Care Provider, Fusion Analyst, Material Control Associate and Pick Up Call non-emergency contact if: you have any medication questions, your symptoms worsen and your pain is not controlled Follow-up/Referrals: Moses Chau DO [Physician] - 08/16/21 11:10 am Britton Shipley MD [Physician] - 11/04/21 3:20 pm (Rheumatology) Etta Wilson CRNP [Nurse Practitioner] - 09/08/21 9:30 am ([facility]) Josh Gaspar MD [Primary Care Provider] - 08/09/21 7:40 am () Lee Gomez MD [Outside Practitioners] - 09/01/21 11:20 am ([facility] pulmonology. This appointment is at the [facility] location in [place], NOT in [place]. Per Dr. Gomez's office, you do not have an appointment on August 18. ) Diet: Carb Consistent or DM2 and Heart Healthy Addtl Attending Provider Instructions: Please continue the Oxycontin 10mg daily in the morning and taper off as able to. You can still take the short acting oxycodone 5mg every 6 hours as needed for breakthrough pain. Home PT and OT will be a great way to improve your left chest and shoulder, neck pain. The great news is that your TROPONIN was falsely elevated due to a suspected Human Anti Murine Antibody that you have that alters the troponin test in our lab. Everything has again checked out ok with your heart! Your chest pain at this point seems all to be related to a musculoskeletal issue. Please follow up with the GI,Pulmonology, Rheumatology, and Cardiology appointments as scheduled for you. Pending Studies at Discharge: No Stand-Alone Forms: My [facility] Medications and DC Order Prescriptions: New acetaminophen 325 mg Tablet 650 mg PO Q4H PRN (Reason: pain) Qty: 30 RF: 0 aspirin 81 mg Tablet,Delayed Release (Dr/Ec) 81 mg PO QAM Qty: 30 RF: 0 Continued nitroglycerin 0.4 mg tablet, sublingual 0.4 mg sublingual Q5M PRN (Reason: chest pain) Qty: 25 RF: 1 topiramate [Topamax] 100 mg tablet 100 mg PO BID 30 Days Qty: 60 RF: 5 furosemide [Lasix] 20 mg tablet 20 mg PO DAILY RF: 0 prednisone 10 mg tablet 10 mg PO DAILY RF: 0 cholecalciferol (vitamin D3) [Vitamin D3] 50 mcg (2,000 unit) capsule 4,000 unit PO HS RF: 0 atorvastatin 40 mg tablet 40 mg PO HS RF: 0 fexofenadine [Karlee Allergy] 180 mg Tablet 180 mg PO QAM RF: 0 Trelegy Ellipta 100-62.5-25 mcg blister with device 1 inh inhalation QAM RF: 0 finasteride 5 mg tablet 5 mg PO QAM RF: 0 allopurinol 100 mg tablet 100 mg QPM RF: 0 carbidopa-levodopa 25-100 mg tablet 1 tab PO TID RF: 0 diclofenac sodium [Voltaren Arthritis Pain] 1 % Gel 2 g EXT QID Qty: 100 RF: 0 levetiracetam 500 mg tablet 750 mg PO HS RF: 0 levetiracetam [Keppra] 500 mg tablet 1,000 mg PO QAM RF: 0 oxycodone 5 mg Tablet 5 mg PO Q4H PRN (Reason: pain) Qty: 30 RF: 0 sennosides [Senokot] 8.6 mg tablet 17.2 mg PO BID Qty: 0 RF: 0 polyethylene glycol 3350 [Miralax] 17 gram/dose Powder 17 g PO BID Qty: 0 RF: 0 albuterol sulfate [Ventolin HFA] 90 mcg/actuation Hfa Aerosol Inhaler 2 puff INHALATION Q4H Qty: 0 RF: 0 insulin aspart U-100 [Novolog Flexpen U-100 Insulin] 100 unit/mL (3 mL) insulin pen See Rx Instructions .ROUTE .COMPLEX Qty: 0 RF: 0 (DME) Oxygen Home Liters Per Minute See Rx Instructions .ROUTE .MEDSUPPLY Qty: 1 RF: 0 Lantus Solostar U-100 Insulin 100 unit/mL (3 mL) insulin pen 20 unit SUBCUT BID RF: 0 Novolin N NPH U-100 Insulin 100 unit/mL Suspension 10 unit SUBCUT DAILY RF: 0 Anoro Ellipta 62.5-25 mcg/actuation Blister With Device 1 ea inhalation DAILY Qty: 60 RF: 0 Changed warfarin 5 mg Tablet 7.5 mg PO HS Qty: 30 RF: 0 oxycodone [OxyContin] 10 mg tablet,oral only,ext.rel.12 hr 10 mg PO QAM Qty: 30 RF: 0 Discontinued gabapentin 300 mg capsule 300 mg PO BID Qty: 180 RF: 1 Discharge Orders: Discharge Order (Routine); Ordered 08/04/21 Ordered By: Nya Sprague Admission Data Admit Date/Time: 08/01/21 13:18 Attending Provider: Nya Sprague Admit Provider: Toni Kelly Primary Care Provider: Josh Gaspar Other Providers: Toni Kelly Other Interventions: Discharge Summary Assessment (RN) Last Done: 08/04/21 13:54 Coding Level of Care Code D/C DAY MANAGEMENT >30 MINS Diagnoses Fall W19.XXXA Acute kidney injury N17.9 Neck pain M54.2 Chronic chest pain R07.9; G89.29 Elevated troponin R77.8 Polymyositis M33.20 Chronic respiratory failure with hypoxia J96.11 CAD (coronary artery disease) I25.10 Associated angina: without angina Coronary Disease-Associated Artery/Lesion type: [place] artery [place] vs. transplanted heart: [place] heart Candidiasis of mouth and esophagus B37.81; B37.0 Chronic kidney disease, stage 3a N18.3 Chronic pulmonary aspiration T17.908A Chronic use of steroids Constipation due to opioid therapy K59.03; T40.2X5A Diabetes E11.42; Z79.4 Diabetes mellitus complication detail: with polyneuropathy Diabetes mellitus complication status: with neurologic complications Diabetes mellitus terminal worker insulin use: with terminal worker use Diabetes mellitus type: type 2 History of aortic valve replacement Z95.2 History of gastric bypass Z98.84 History of prostate cancer Z85.46 History of seizures Z87.898 HLD (hyperlipidemia) E78.2 Hyperlipidemia type: mixed hyperlipidemia 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; M35.9 PAF (paroxysmal atrial fibrillation) I48.0 Parkinsonism G20 Parkinsonism type: unspecified
[2021-08-04] MEDS ORDERED: WARFARIN SOD 5 MG TAB PO SCH (16:00)
== END 2021-08-04 14:32 | disposition home or self-care (01) ==
LOC: 2E 06:56 → ED 06:56 → 2E 12:43 → SUATTDRO 08-01 13:18

== ENCOUNTER 2021-10-03 21:33 | Observation (INO) ==
--- NOTE | 2021-10-03 21:44 | Emergency Department Note ---
Impression & Plan Acute dehydration, Fall, Headache, Dizziness ED Provider Note NAME: OSBALDO AGUILAR AGE: 76 SEX: M : 1945 ARRIVES VIA: Ambulance INFORMANT: Patient, ED PROVIDER(S): Wilmer Mayo MD Chief Complaint: Fall HPI: Patient presents from home due to concern for ground-level fall. The patient states that he was going into his kitchen to get his medications but he felt lightheaded and dizzy fell forward striking the left side of his head as well as his right elbow. The patient denies any LOC but does take Coumadin. Patient denies any fevers but has felt slightly cold. The patient denies any chest pains or shortness of breath. The patient denies any numbness tingling or focal weakness. The patient states that he had had some lower oxygen saturations as low as 89% at home and has a history of interstitial lung disease. The patient denies any cough. Patient states he has been compliant with his medications. Patient does live by himself. After the patient had fallen he did use his alert button in order to contact EMS. No BSG was obtained prior to arrival. Patient does have mild left forehead pain. Patient did not take anything for pain prior to arrival. It is achy nonradiating. Patient also relates that he had a secondary COVID exposure as the patient's caregiver has a family member that tested positive for COVID but the caregiver is not tested positive. ROS: See HPI for pertinent positives and negatives. A total of 10 systems were reviewed and otherwise negative. Past medical history: See below Surgical history: See below Social history: See below Physical Exam: GENERAL: NAD, non-toxic. EYE EXAM: Normal conjunctiva. PERRL, no anisocoria and EOM's grossly intact w/o pain. Head: No obvious deformity or ecchymosis. OROPHARYNX: Dry mucus membranes. Grossly normal dentition. NECK: Supple, no nuchal rigidity, no adenopathy, non-tender. No signs of meningismus. LUNGS: Clear to auscultation. Normal chest wall mechanics. HEART: NSR, no MRG. ABDOMEN: Abdomen soft, non-tender, normo-active bowel sounds, no masses, no rebound or guarding. BACK: No CVA TTP. SKIN: No rashes and no bruising. UPPER EXTREMITIES: Skin tear noted to the right upper extremity the elbow with bandage in place, compartments are soft neurovascular intact distally no pain to palpation good range of motion. LOWER EXTREMITIES: Grossly normal, trace symmetric pretibial edema without calf pain erythema, compartments are soft bilaterally. NEURO EXAM: A&O x3, cranial nerves II-XII grossly intact, normal speech, moves all 4 extremities on command w/o issue. Differential diagnoses: ICH, fracture, benign positional vertigo, dehydration, hypovolemia, anemia, tumor, infection, hypoglycemia, electrolyte abnormalities, cardiac sources, intracerebral event, toxicologic, neurologic, as well as other pathologies. Course: Patient was seen and evaluated the bedside. Full history physical exam was performed. EKG interpreted by me Sinus with sinus arrhythmia, rate of 78, normal [place] and QRS, normal axis, no obvious ST elevations. Imaging Studies: See Below Cardiac monitoring: An order was placed for continuous cardiac monitoring. The monitor shows a rate of 82 with sinus rhythm. MDM: Patient was seen due to concern for feeling weak and dizzy. Patient also had some suffered a fall and is on Coumadin. The patient did have blood work completed along with an INR CT of the head cervical spine and chest x-ray were obtained along with a COVID swab. Patient was ordered IV fluids. The patient does have mild leukopenia as well as anemia with a hemoglobin of 11.9. The patient's platelet count is unremarkable. INR is therapeutic at 2.4. Patient does have prerenal azotemia. BSG was obtained at the time of his arrival which is in the 200s. The patient's troponin was not elevated. Urinalysis does show trace ketones. CT head and cervical spine were negative for fracture dislocation or ICH. COVID-negative. After further discussion with the patient the patient does not feel he is capable of getting up and about and completing his activities of daily living and likely suffering from dehydration. I did speak with the on-call hospitalist Dr. Meraz and the patient was admitted to the medicine service. Past Med/Surg History Medical History (Updated 10/04/21 @ 17:45 by Wilmer Mayo MD) Abnormal CT scan, chest Acute hyperglycemia Acute left-sided muscle weakness Anemia Aspiration pneumonia CAD (coronary artery disease) Chronic dyspnea Chronic pulmonary aspiration Dehydration Diabetes Fall HLD (hyperlipidemia) Hypoxia Interstitial lung disease due to connective tissue disease Non-ST elevation OR (NSTEMI) Polymyositis Prostate cancer s/p XRT Rheumatoid arthritis Stroke-like symptom 12/2019, w/ blurry vision and dysarthria. mild R sided wkness. attending outpatient physical therapy w/ good improvement in strength (5+/5 strength of all 4 extremities as of 05/28/20) Subtherapeutic international normalized ratio (INR) Syncope Thoracic ascending aortic aneurysm s/p repair Weakness Surgical History H/O hernia repair History of aortic valve replacement mechanical History of cholecystectomy History of fusion of cervical spine History of gastric bypass lap band History of heart artery stent History of lung biopsy 2019 History of partial nephrectomy Family History Mother , age 87 of pulmonary issues Rheumatoid arthritis Father , in his mid 80s of a stroke Stroke Other Coronary heart disease Social History Smoking Status: Never smoker Second Hand Exposure: No; Do You Dip or Chew Tobacco: No; Tobacco Cessation Education Requested by Patient: No Hx Alcohol Use: No Hx Substance Use: No Preferred Language: German Communication Ability: Effective Hearing Ability: Hard of Hearing Dramatic Coach Required: No Beliefs That Will Affect Care: None marital status: / Current Living Situation: Alone Current Living Situation Comment: lives alone in a one story house in [place] current occupational status: retired 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 How many Children do You have: 1 How many Children do You have Comment: son Other Information That Helps Us Care for You: No Feels Safe at Home: Yes Safety Concerns: Feels Safe At This Time Assistive Devices: Walker Allergies Allergies Allergy/AdvReac Type Severity Reaction Status Date / Time Iodinated Contrast Media Allergy Severe Anaphylaxis Verified 10/04/21 01:34 shellfish derived Allergy Severe Anaphylaxis Verified 10/04/21 01:34 tamsulosin [From Flomax] Allergy Intermediate Itching Verified 10/04/21 01:34 Tetanus Vaccines and Toxoid Allergy Unknown Unknown Verified 10/04/21 01:34 Home Meds Home Medications Medication Instructions Recorded Confirmed atorvastatin 40 mg tablet 40 mg PO HS 05/28/20 10/04/21 fexofenadine 180 mg tablet 180 mg PO QAM 02/11/21 10/04/21 (Karlee Allergy) allopurinol 100 mg tablet 100 mg QPM 04/10/21 10/04/21 finasteride 5 mg tablet 5 mg PO QAM 04/28/21 10/04/21 carbidopa 25 mg-levodopa 100 mg 1 tab PO TID 05/24/21 10/04/21 tablet levetiracetam 500 mg tablet 1,000 mg PO BID 06/30/21 10/04/21 (Keppra) cholecalciferol (vitamin D3) 50 4,000 unit PO HS cap 07/14/21 10/04/21 mcg (2,000 unit) capsule (Vitamin D3) prednisone 10 mg tablet 5 mg PO DAILY tab 07/14/21 10/04/21 insulin NPH isoph U-100 human 100 20 unit SUBCUT DAILY 07/26/21 10/04/21 unit/mL subcutaneous suspension (Novolin N NPH U-100 Insulin isophane) insulin glargine 100 unit/mL (3 20 unit SUBCUT BID 07/26/21 10/04/21 mL) subcutaneous pen (Lantus Solostar U-100 Insulin) furosemide 20 mg tablet (Lasix) 20 mg PO DAILY tab 08/30/21 10/04/21 albuterol sulfate 90 mcg/actuation 2 puff INHALATION Q4H PRN 09/27/21 10/04/21 aerosol inhaler (Ventolin HFA) diclofenac sodium 1 % topical gel 2 g EXT QID PRN 09/27/21 10/04/21 (Voltaren Arthritis Pain) warfarin 5 mg tablet See Rx Instructions .ROUTE .COMPLEX 09/27/21 10/04/21 polyethylene glycol 3350 17 17 g PO BID PRN 10/04/21 10/04/21 gram/dose oral powder (Miralax) Previous Rx's Medication Instructions Recorded insulin aspart U-100 100 unit/mL See Rx Instructions .ROUTE 07/08/21 (3 mL) subcutaneous pen (Novolog .COMPLEX #0 ml Flexpen U-100 Insulin aspart) sennosides 8.6 mg tablet (Senokot) 17.2 mg PO BID #0 tab 07/08/21 topiramate 100 mg tablet (Topamax) 100 mg PO BID 30 Days #60 tab 07/12/21 acetaminophen 325 mg tablet 650 mg PO Q4H PRN #30 tab 08/04/21 aspirin 81 mg tablet,delayed 81 mg PO QAM #30 tab 08/04/21 release gabapentin 300 mg capsule 300 mg PO BID 30 Days #60 cap 08/30/21 fluticasone fur. 100 mcg-umeclid 1 inh INHALATION QAM #60 ea 09/06/21 62.5 mcg-vilant 25 mcg inhalat.powder (Trelegy Ellipta) lamotrigine 25 mg tablet (Lamictal) See Rx Instructions .ROUTE 09/22/21 .COMPLEX #60 tab Results & Data (ED) Vital Signs Vital Signs - 24 hr 10/03/21 21:37 10/03/21 21:38 10/03/21 21:39 Temperature 36.8 C Temperature Source Oral Pulse Rate 76 77 85 Pulse Rate from SpO2 Sensor 76 77 Respiratory Rate 15 17 24 Respiratory Effort / Characteristics Spontaneous SOB on Exertion Respiratory Depth Normal Respiratory Pattern Tachypnea Blood Pressure 136/72 136/72 Blood Pressure Mean 93 93 Blood Pressure Position Lying Pulse Oximetry 96 95 98 Oxygen Delivery Method Room Air Oxygen Flow Rate Sepsis Recent Fever Within 48 Hours Yes Sepsis New/Unexplained Change in Mental Status No Sepsis Action Taken by Nursing No Action Required 10/03/21 22:00 10/03/21 22:55 10/03/21 22:56 Temperature Temperature Source Pulse Rate 73 89 74 Pulse Rate from SpO2 Sensor 74 82 Respiratory Rate 18 31 H 24 Respiratory Effort / Characteristics Respiratory Depth Respiratory Pattern Blood Pressure 119/69 Blood Pressure Mean 85 Blood Pressure Position Pulse Oximetry 97 92 Oxygen Delivery Method Oxygen Flow Rate Sepsis Recent Fever Within 48 Hours Sepsis New/Unexplained Change in Mental Status Sepsis Action Taken by Nursing 10/03/21 23:00 10/03/21 23:30 10/04/21 00:00 Temperature Temperature Source Pulse Rate 74 71 80 Pulse Rate from SpO2 Sensor 65 78 77 Respiratory Rate 14 22 19 Respiratory Effort / Characteristics Respiratory Depth Respiratory Pattern Blood Pressure 121/63 117/71 115/64 Blood Pressure Mean 82 86 81 Blood Pressure Position Pulse Oximetry 100 92 92 Oxygen Delivery Method Oxygen Flow Rate Sepsis Recent Fever Within 48 Hours Sepsis New/Unexplained Change in Mental Status Sepsis Action Taken by Nursing 10/04/21 00:30 10/04/21 01:00 10/04/21 01:30 Temperature Temperature Source Pulse Rate 66 74 Pulse Rate from SpO2 Sensor 66 73 Respiratory Rate 18 16 20 Respiratory Effort / Characteristics Respiratory Depth Respiratory Pattern Blood Pressure 114/71 119/71 110/70 Blood Pressure Mean 85 87 83 Blood Pressure Position Pulse Oximetry 91 96 Oxygen Delivery Method Nasal Cannula Nasal Cannula Oxygen Flow Rate 2 2 Sepsis Recent Fever Within 48 Hours Sepsis New/Unexplained Change in Mental Status Sepsis Action Taken by Nursing 10/04/21 02:00 10/04/21 02:01 10/04/21 02:04 Temperature Temperature Source Pulse Rate 71 80 72 Pulse Rate from SpO2 Sensor 70 76 72 Respiratory Rate 17 27 H 19 Respiratory Effort / Characteristics Respiratory Depth Respiratory Pattern Blood Pressure 106/51 L Blood Pressure Mean 69 Blood Pressure Position Pulse Oximetry 97 95 98 Oxygen Delivery Method Oxygen Flow Rate 2 2 Sepsis Recent Fever Within 48 Hours Sepsis New/Unexplained Change in Mental Status Sepsis Action Taken by Retirement Medications Current Medication List: was personally reviewed by me Laboratory Data Attestation: I reviewed the patient's lab results. Result diagrams: 10/03/21 21:45 10/03/21 21:45 Lab Results 10/03/21 10/03/21 10/03/21 Range/Units 21:45 21:45 21:45 WBC 4.52 L (4.8-10.8) K/uL RBC 4.29 L (4.7-6.1) M/uL Hgb 11.9 L (14.0-18.0) g/dL Hct 37.5 L (42-52) % MCV 87.4 (80-100) fL MCH 27.7 (25-34) pg MCHC 31.7 L (32-36) g/dL RDW Std Deviation 49.9 H (36.4-46.3) fL RDW Coeff of Lianne 15.6 H (11.5-14.5) % Plt Count 178 (130-400) K/uL MPV 9.9 (7.4-10.4) fL Immature Gran % (Auto) 2.7 % Neut % (Auto) 64.1 % Lymph % (Auto) 24.3 % Sierra % (Auto) 5.8 % Eos % (Auto) 2.9 % Baso % (Auto) 0.2 % Neut # (Auto) 2.90 (1.4-6.5) K/uL Lymph # (Auto) 1.10 L (1.2-3.4) K/uL Sierra # (Auto) 0.26 (0.11-0.59) K/uL Eos # (Auto) 0.13 (0-0.5) K/uL Baso # (Auto) 0.01 (0-0.2) K/uL Immature Gran # (Auto) 0.12 H (0.00-0.02) K/uL PT 24.0 H (9.0-12.0) Seconds INR 2.4 H (0.9-1.1) Sodium 137 (136-145) mmol/L Potassium 3.9 (3.5-5.1) mmol/L Chloride 105 (98-107) mmol/L Carbon Dioxide 23 (21-32) mmol/L Anion Gap 9 (3-11) BUN 31 H (6-23) mg/dl Creatinine 1.19 (0.6-1.4) mg/dl Est Cr Clr Drug Dosing 65.6 ml/min Est GFR ( Amer) 68.4 ml/min Est GFR (Non-Af Amer) 59.0 ml/min BUN/Creatinine Ratio 26.1 H (10-20) Glucose 273 H (70-99(Fasting)) mg/dl POC Glucose (70-99) mg/dl Calcium 9.3 (8.5-10.1) mg/dl Magnesium 1.9 (1.7-2.4) mg/dl Total Bilirubin 0.5 (0.2-1.0) mg/dl AST 16 (13-39) U/L ALT 5 L (7-52) U/L Alkaline Phosphatase 75 (34-104) U/L Troponin I High Sens 15.1 (0-20) pg/ml Total Protein 6.0 (6.0-8.3) gm/dl Albumin 3.7 (3.4-5.0) gm/dl Globulin 2.3 L (2.5-4.0) gm/dl Albumin/Globulin Ratio 1.6 (0.9-2) TSH (0.300-4.500) uIu/ml SARS-CoV-2, RNA, NAAT (NEGATIVE) 10/03/21 10/03/21 10/03/21 Range/Units 21:45 21:55 21:59 WBC (4.8-10.8) K/uL RBC (4.7-6.1) M/uL Hgb (14.0-18.0) g/dL Hct (42-52) % MCV (80-100) fL MCH (25-34) pg MCHC (32-36) g/dL RDW Std Deviation (36.4-46.3) fL RDW Coeff of Lianne (11.5-14.5) % Plt Count (130-400) K/uL MPV (7.4-10.4) fL Immature Gran % (Auto) % Neut % (Auto) % Lymph % (Auto) % Sierra % (Auto) % Eos % (Auto) % Baso % (Auto) % Neut # (Auto) (1.4-6.5) K/uL Lymph # (Auto) (1.2-3.4) K/uL Sierra # (Auto) (0.11-0.59) K/uL Eos # (Auto) (0-0.5) K/uL Baso # (Auto) (0-0.2) K/uL Immature Gran # (Auto) (0.00-0.02) K/uL PT (9.0-12.0) Seconds INR (0.9-1.1) Sodium (136-145) mmol/L Potassium (3.5-5.1) mmol/L Chloride (98-107) mmol/L Carbon Dioxide (21-32) mmol/L Anion Gap (3-11) BUN (6-23) mg/dl Creatinine (0.6-1.4) mg/dl Est Cr Clr Drug Dosing ml/min Est GFR ( Amer) ml/min Est GFR (Non-Af Amer) ml/min BUN/Creatinine Ratio (10-20) Glucose (70-99(Fasting)) mg/dl POC Glucose 289 H (70-99) mg/dl Calcium (8.5-10.1) mg/dl Magnesium (1.7-2.4) mg/dl Total Bilirubin (0.2-1.0) mg/dl AST (13-39) U/L ALT (7-52) U/L Alkaline Phosphatase (34-104) U/L Troponin I High Sens (0-20) pg/ml Total Protein (6.0-8.3) gm/dl Albumin (3.4-5.0) gm/dl Globulin (2.5-4.0) gm/dl Albumin/Globulin Ratio (0.9-2) TSH 1.804 (0.300-4.500) uIu/ml SARS-CoV-2, RNA, NAAT NEGATIVE (NEGATIVE) Administered Medications Acetaminophen (Acetaminophen 325 Mg Tab) 650 mg PO Q4H PRN PRN Reason: Pain or Fever Stop: 11/03/21 03:08 Last Admin: 10/04/21 16:19 Dose: 650 mg Documented by: [id number] Aspirin (Aspirin 81 Mg Ectab) 81 mg PO QAM [facility] Stop: 11/03/21 08:59 Last Admin: 10/04/21 08:31 Dose: 81 mg Documented by: [id number] Carbidopa/Levodopa (Carbidopa/Levodopa 25/100mg Tab) 1 tab PO TID [facility] Stop: 11/03/21 08:59 Last Admin: 10/04/21 13:25 Dose: 1 tab Documented by: [id number] Admin: 10/04/21 08:31 Dose: 1 tab Documented by: [id number] Fexofenadine HCl (Fexofenadine Hcl 180 Mg Tab) 180 mg PO QAM [facility] Stop: 11/03/21 08:59 Last Admin: 10/04/21 08:31 Dose: 180 mg Documented by: [id number] Finasteride (Finasteride 5 Mg Tab) 5 mg PO QAM [facility] Stop: 11/03/21 08:59 Last Admin: 10/04/21 08:31 Dose: 5 mg Documented by: [id number] Fluticasone Furoate (Fluticasone Furoate 100mcg 14 Puffs/Inhaler) 1 puffs INH DAILY [facility] Stop: 11/03/21 08:59 Last Admin: 10/04/21 08:32 Dose: 1 puffs Documented by: [id number] Furosemide (Furosemide 20 Mg Tab) 20 mg PO DAILY [facility] Stop: 11/03/21 08:59 Last Admin: 10/04/21 08:32 Dose: 20 mg Documented by: [id number] Gabapentin (Gabapentin 300 Mg Cap) 300 mg PO BID [facility] Stop: 11/03/21 08:59 Last Admin: 10/04/21 08:32 Dose: 300 mg Documented by: [id number] Insulin Aspart (Insulin Aspart Per Unit) 0 units SC ACHS [facility] Stop: 11/03/21 07:29 Last Admin: 10/04/21 12:53 Dose: 6 units Documented by: [id number] Cosigned by: [id number] Admin: 10/04/21 08:31 Dose: 6 units Documented by: [id number] Cosigned by: [id number] Insulin Human NPH (Insulin Human Nph) 20 units SQ DAILY [facility] Stop: 11/03/21 08:59 Last Admin: 10/04/21 08:32 Dose: 20 units Documented by: [id number] Cosigned by: [id number] Lamotrigine (Lamotrigine 25 Mg Tab) 25 mg PO BID [facility] Stop: 11/03/21 08:59 Last Admin: 10/04/21 08:33 Dose: 25 mg Documented by: [id number] Levetiracetam (Levetiracetam 500 Mg Tab) 1,000 mg PO BID [facility] Stop: 11/03/21 08:59 Last Admin: 10/04/21 08:33 Dose: 1,000 mg Documented by: [id number] Polyethylene Glycol (Polyethylene (Miralax) 17 Gm Pack) 17 gm PO BID PRN PRN Reason: Constipation Stop: 11/03/21 03:08 Last Admin: 10/04/21 12:53 Dose: 17 gm Documented by: [id number] Prednisone (Prednisone 5 Mg Tab) 5 mg PO DAILY [facility] Stop: 11/03/21 08:59 Last Admin: 10/04/21 08:33 Dose: 5 mg Documented by: [id number] Sennosides (Senna 8.6 Mg Tab) 17.2 mg PO BID [facility] Stop: 11/03/21 08:59 Last Admin: 10/04/21 08:33 Dose: 17.2 mg Documented by: [id number] Topiramate (Topiramate 100 Mg Tab) 100 mg PO BID [facility] Stop: 11/03/21 08:59 Last Admin: 10/04/21 08:33 Dose: 100 mg Documented by: [id number] Umeclidinium/Vilanterol (Umeclidinium/Vilanterol 62.5/25mcg 7 Puffs/Inhaler) 1 puffs INH DAILY [facility] Stop: 11/03/21 08:59 Last Admin: 10/04/21 08:33 Dose: 1 puffs Documented by: [id number] Warfarin Sodium (Warfarin Sod 5 Mg Tab) 5 mg PO TuTh@1600 [facility] Stop: 11/03/21 15:59 Last Admin: 10/04/21 16:18 Dose: 5 mg Documented by: [id number] Discontinued Medications Acetaminophen (Acetaminophen 500 Mg Tab) 1,000 mg PO NOW STA Stop: 10/03/21 21:51 Last Admin: 10/03/21 22:38 Dose: 1,000 mg Documented by: [id number] Sodium Chloride (Nss) 500 mls @ 999 mls/hr IV .Q31M KIRSTEN Stop: 10/03/21 22:30 Last Infusion: 10/04/21 00:36 Dose: 0 mls/hr Documented by: [id number] Admin: 10/03/21 22:39 Dose: 999 mls/hr Documented by: [id number] Sodium Chloride (Nss 1000ml) 500 mls @ 999 mls/hr IV .Q31M ONE Stop: 10/04/21 00:21 Last Infusion: 10/04/21 00:36 Dose: 0 mls/hr Documented by: [id number] Admin: 10/03/21 23:55 Dose: 999 mls/hr Documented by: [id number] Insulin Glargine (Insulin Glargine Solostar 100 Units/Ml 3 Ml Pen) 20 units SQ BID [facility]EN Stop: 11/03/21 08:59 Last Admin: 10/04/21 08:32 Dose: 20 units Documented by: [id number] Cosigned by: [id number] Ondansetron HCl (Ondansetron Inj 2 Mg/Ml 2 Ml Vial) 4 mg IV NOW STA Stop: 10/03/21 21:51 Last Admin: 10/03/21 22:39 Dose: 4 mg Documented by: [id number] Imaging Data Radiologist's Impression: Cervical Spine CT 10/03/21 21:50 CT SCAN OF THE CERVICAL SPINE CLINICAL HISTORY: Fall. COMPARISON STUDY: CT of the cervical spine dated 07/31/2021. TECHNIQUE: CT scan of the cervical spine is performed from the skull base to the upper thoracic spine. Images are reviewed in the axial, sagittal, and coronal pl anes. IV contrast was not administered for this examination. A dose lowering technique was utilized adhering to the principles of ALARA. FINDINGS: Skeletal structures: The skeletal structures are osteopenic. There is no evidence of fracture or subluxation involving the cervical spine. Vertebral body height and alignment are maintained. There is postoperative change from anterior fusion seen at C4-C5. There is straightening of the cervical lordosis. The odontoid process and lateral masses are intact. The atlantoaxial articulation is preserved noting productive degenerative change. The spinous processes appear intact. There is mild multilevel facet arthropathy. Midline sternotomy wires are partially imaged. Intervertebral discs: There has been discectomy at C4-C5. Moderate disc space narrowing is seen at C5-C6. Mild narrowing is seen at the remaining cervical levels. Central canal: Posterior disc osteophyte complexes at C3-C4, C4-C5, C5-C6, and C6-C7 may contribute to multilevel acquired compromise of the central canal. Soft tissues: The prevertebral and paraspinous soft tissues are within normal limits. Atherosclerotic calcification is noted in the carotid bulbs. Calvarium: The visualized calvarium at the skull base appears intact. Brain parenchyma: Partially visualized brain parenchyma at the skull base is within normal limits. Sinuses and mastoids: Trace mucosal thickening is seen in the maxillary antra. There are left larger than right mastoid effusions. Lung apices: Clear as visualized. IMPRESSION: 1. There is no evidence of fracture or subluxation involving the cervical spine. 2. Osteopenia with postoperative and spondylotic change as above. ACT 112: Negative or not required by law. Electronically signed by: Tan Burleson M.D. 10/04/2021 7:13 AM Chest X-Ray 10/03/21 21:50 XR chest 1V portable CLINICAL HISTORY: weakness, ILD, reported o2 89% at home TECHNIQUE: Single frontal radiograph of the chest was obtained. Comparison: Comparison is made to chest radiograph 09/27/2021 FINDINGS: Median sternotomy wires are unchanged including fractures of the first and fourth wires. Cardiomegaly is noted. The lungs are clear although evaluation of the left lateral lung base is limited. No evidence of pleural effusion or pneumothorax. IMPRESSION: No acute chest disease. ACT 112: Negative or not required by law. Electronically signed by: Russell Sifuentes M.D. 10/04/2021 8:[address] 10/03/21 21:50 CT SCAN OF THE BRAIN WITHOUT IV CONTRAST CLINICAL HISTORY: Fall. Head injury. COMPARISON STUDY: CT of the brain dated 09/27/2021. TECHNIQUE: Unenhanced axial CT scan of the brain is performed from the vertex to the skull base. A dose lowering technique was utilized adhering to the pr inciples of ANTONINO. CT DOSE: 1471.68 mGy.cm FINDINGS: Brain parenchyma: There is age-related involutional change noting mi [id number] subcortical and periventricular microangiopathic disease. There is no hemorrhage, mass effect, or evidence of acute territorial ischemia by CT criteria. A small chronic lacunar infarct is noted in the right cerebellar hemisphere. Gallego-white matter differentiation is preserved. No extra-axial fluid collection is seen. Ventricles, sulci, cisterns: Prominent secondary to involutional change. Intracranial vasculature: There is atherosclerotic calcification of the cavernous carotid and vertebral arteries. Calvarium: The skeletal structures are osteopenic. No depressed calvarial fracture is identified. Sinuses and mastoids: The visualized paranasal sinuses are clear. There are left larger than right mastoid effusions. Orbits: The bony orbits are grossly intact. There are bilateral ocular lens implants. IMPRESSION: There is no hemorrhage, mass effect, or evidence of acute territorial ischemia by CT criteria. ACT 112: Negative or not required by law. Electronically signed by: Tan Burleson M.D. 10/04/2021 7:04 AM Discharge Plan Visit Data Chief Complaint: Fall Stated Complaint: FALL/ HIT FOREHEAD ED Provider: Wilmer Mayo Discharge Problem: Acute dehydration, Fall, Headache, Dizziness Patient Disposition: Admitted As Inpatient Discharge Instructions Interventions: ED Discharge Assessment Last Done: 10/04/21 03:00 Discharge Problem: Fall Qualifiers: Encounter type: initial encounter Qualified Code(s): W19.XXXA - Unspecified fa ll, initial encounter Headache Qualifiers: Headache type: post-traumatic Headache chronicity pattern: acute headache Intractability: not intractable Qualified Code(s): G44.319 - Acute post- traumatic headache, not intractable
[2021-10-03] MEDS ORDERED: ONDANSETRON INJ 2 MG/ML 2 ML VIAL IV STA (21:50)
[2021-10-03] MEDS ORDERED: ACETAMINOPHEN 500 MG TAB PO STA (21:50)
[2021-10-03] MEDS ORDERED: SODIUM CHLORIDE 0.9% 500 ML IV SCH (22:00)
[2021-10-03 22:23] LABS: Basophils # (auto) 0.01 K/uL (0-0.2); Basophils % (auto) 0.2 %; Eosinophils # (auto) 0.13 K/uL (0-0.5); Eosinophils % (auto) 2.9 %; Hematocrit (blood only) 37.5 % (42-52); Hemoglobin 11.9 g/dL (14.0-18.0); Immature Granulocytes # (auto) 0.12 K/uL (0.00-0.02); Immature Granulocytes % (auto) 2.7 %; Lymphocytes % (auto) 24.3 %; Mean Corpuscular Hemoglobin 27.7 pg (25-34); Mean Corpuscular Hgb Conc 31.7 g/dL (32-36); Mean Corpuscular Volume 87.4 fL (80-100); Mean Platelet Volume 9.9 fL (7.4-10.4); Monocytes # (auto) 0.26 K/uL (0.11-0.59); Monocytes % (auto) 5.8 %; Neutrophils % (auto) 64.1 %; Platelet Count 178 K/uL (130-400); RDW Coefficient of Variation 15.6 % (11.5-14.5); RDW Standard Deviation 49.9 fL (36.4-46.3); Red Blood Count 4.29 M/uL (4.7-6.1); White Blood Count 4.52 K/uL (4.8-10.8)
[2021-10-03 22:26] LABS: INR 2.4 (0.9-1.1)
[2021-10-03 22:33] LABS: Albumin Globulin Ratio 1.6 (0.9-2); Albumin Level 3.7 gm/dl (3.4-5.0); BUN Creatinine Ratio 26.1 (10-20); Bilirubin,Total 0.5 mg/dl (0.2-1.0); Calcium 9.3 mg/dl (8.5-10.1); Creatinine Clr Calc Pharmacy 65.6 ml/min; Est GFR (African American) 68.4 ml/min; Globulin 2.3 gm/dl (2.5-4.0); Magnesium 1.9 mg/dl (1.7-2.4); Potassium 3.9 mmol/L (3.5-5.1)
[2021-10-03 22:39] LABS: Troponin I High Sensitivity 15.1 pg/ml (0-20)
[2021-10-03] MEDS ORDERED: SODIUM CHLORIDE 0.9% 1000ML 500 ML IV ONE (23:51)
--- NOTE | 2021-10-04 02:12 | History & Physical Report ---
Date of Service October 04, 2021 Assessment & Plan (1) Status post fall: Plan: Status post fall/generalized weakness- Multifactorial, including but not limited to: Parkinsonism, peripheral neuropathy, connective tissue disease, rheumatoid arthritis/polymyositis, others (2) Generalized weakness: Plan: Consult PT/OT. Patient will need rehab, and consideration for NHP (3) CAD (coronary artery disease): Plan: CAD/hypertension/PAF- Continue aspirin, furosemide, warfarin Long-term use of warfarin will need to be reassessed due to potential complications from falling (4) PAF (paroxysmal atrial fibrillation): Plan: See above (5) Chronic kidney disease, stage 3a: Plan: Creatinine 1.19 upon admission, with range 1.07-1.34 (6) Rheumatoid arthritis: Plan: Rheumatoid arthritis/polymyositis- Continue prednisone, diclofenac gel (7) Parkinsonism: Plan: Continue carbidopa/levodopa (8) History of seizures: Plan: Continue gabapentin, lamotrigine, topiramate and Keppra (9) Diabetes: Plan: Continue glargine 20 units subcu twice daily Place on Accu-Cheks before meals and at bedtime with NovoLog coverage per scale (10) Polymyositis: Plan: See above (11) Prostate cancer: History of Present Illness Chief Complaint: The patient presents to the emergency department after a fall, where he sustained a small surface abrasion on right elbow, and a bump to his left frontal forehead area. Primary Care Provider: Josh Gaspar MD The patient is a 76-year-old male with a complicated past medical history, who presents to the emergency department with complaint of generalized weakness, where his legs gave way earlier in the day, and he fell sustaining injuries as noted above. He complained of some left frontal pain and some left neck pain. CT scan of head and cervical spine were both negative in the ED. Patient has been referred to medicine for admission for assessment for penitentiary placement Allergies Allergy/AdvReac Type Severity Reaction Status Date / Time Iodinated Contrast Media Allergy Severe Anaphylaxis Verified 10/04/21 01:34 shellfish derived Allergy Severe Anaphylaxis Verified 10/04/21 01:34 tamsulosin [From Flomax] Allergy Intermediate Itching Verified 10/04/21 01:34 Tetanus Vaccines and Toxoid Allergy Unknown Unknown Verified 10/04/21 01:34 Home Medications Medication Instructions Recorded Confirmed Type atorvastatin 40 mg tablet 40 mg PO HS 05/28/20 10/04/21 History fexofenadine 180 mg tablet 180 mg PO QAM 02/11/21 10/04/21 History (Karlee Allergy) allopurinol 100 mg tablet 100 mg QPM 04/10/21 10/04/21 History finasteride 5 mg tablet 5 mg PO QAM 04/28/21 10/04/21 History carbidopa 25 mg-levodopa 100 mg 1 tab PO TID 05/24/21 10/04/21 History tablet levetiracetam 500 mg tablet 1,000 mg PO BID 06/30/21 10/04/21 History (Keppra) insulin aspart U-100 100 unit/mL See Rx Instructions .ROUTE 07/08/21 10/04/21 Rx (3 mL) subcutaneous pen (Novolog .COMPLEX #0 ml Flexpen U-100 Insulin aspart) sennosides 8.6 mg tablet (Senokot) 17.2 mg PO BID #0 tab 07/08/21 10/04/21 Rx topiramate 100 mg tablet (Topamax) 100 mg PO BID 30 Days #60 tab 07/12/21 10/04/21 Rx cholecalciferol (vitamin D3) 50 4,000 unit PO HS cap 07/14/21 10/04/21 History mcg (2,000 unit) capsule (Vitamin D3) prednisone 10 mg tablet 5 mg PO DAILY tab 07/14/21 10/04/21 History insulin NPH isoph U-100 human 100 20 unit SUBCUT DAILY 07/26/21 10/04/21 History unit/mL subcutaneous suspension (Novolin N NPH U-100 Insulin isophane) insulin glargine 100 unit/mL (3 20 unit SUBCUT BID 07/26/21 10/04/21 History mL) subcutaneous pen (Lantus Solostar U-100 Insulin) acetaminophen 325 mg tablet 650 mg PO Q4H PRN #30 tab 08/04/21 10/04/21 Rx aspirin 81 mg tablet,delayed 81 mg PO QAM #30 tab 08/04/21 10/04/21 Rx release furosemide 20 mg tablet (Lasix) 20 mg PO DAILY tab 08/30/21 10/04/21 History gabapentin 300 mg capsule 300 mg PO BID 30 Days #60 cap 08/30/21 10/04/21 Rx fluticasone fur. 100 mcg-umeclid 1 inh INHALATION QAM #60 ea 09/06/21 10/04/21 Rx 62.5 mcg-vilant 25 mcg inhalat.powder (Trelegy Ellipta) lamotrigine 25 mg tablet (Lamictal) See Rx Instructions .ROUTE 09/22/21 10/04/21 Rx .COMPLEX #60 tab albuterol sulfate 90 mcg/actuation 2 puff INHALATION Q4H PRN 09/27/21 10/04/21 History aerosol inhaler (Ventolin HFA) diclofenac sodium 1 % topical gel 2 g EXT QID PRN 09/27/21 10/04/21 History (Voltaren Arthritis Pain) warfarin 5 mg tablet See Rx Instructions .ROUTE .COMPLEX 09/27/21 10/04/21 History polyethylene glycol 3350 17 17 g PO BID PRN 10/04/21 10/04/21 History gram/dose oral powder (Miralax) Past Med/Surg History Medical History (Updated 10/04/21 @ 03:26 by Shayan Mims MD) Abnormal CT scan, chest Acute hyperglycemia Acute left-sided muscle weakness Anemia Aspiration pneumonia CAD (coronary artery disease) Chronic dyspnea Chronic pulmonary aspiration Dehydration Diabetes Fall HLD (hyperlipidemia) Hypoxia Interstitial lung disease due to connective tissue disease Non-ST elevation [place] (NSTEMI) Polymyositis Prostate cancer s/p XRT Rheumatoid arthritis Stroke-like symptom 12/2019, w/ blurry vision and dysarthria. mild R sided wkness. attending outpatient physical therapy w/ good improvement in strength (5+/5 strength of all 4 extremities as of 05/28/20) Subtherapeutic international normalized ratio (INR) Syncope Thoracic ascending aortic aneurysm s/p repair Weakness Surgical History H/O hernia repair History of aortic valve replacement mechanical History of cholecystectomy History of fusion of cervical spine History of gastric bypass lap band History of heart artery stent History of lung biopsy 2019 History of partial nephrectomy Family History Mother , age 87 of pulmonary issues Rheumatoid arthritis Father , in his mid 80s of a stroke Stroke Other Coronary heart disease Social History Smoking Status: Never smoker Second Hand Exposure: No; Hx Alcohol Use: No Hx Substance Use: No Preferred Language: Georgian Communication Ability: Effective Hearing Ability: Hard of Hearing Obstetrics/Gynecology Nurse Required: No Beliefs That Will Affect Care: None marital status: / Current Living Situation: Alone Current Living Situation Comment: lives alone in a one story house in [place] current occupational status: retired 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 How many Children do You have: 1 How many Children do You have Comment: son Feels Safe at Home: Yes Assistive Devices: Glasses and Oxygen - at Night Review of Systems Review of Systems: The patient denies chest pain, palpitations, shortness of breath, dyspnea on exertion, cough, lower extremity swelling, sore throat, fevers, chills, sweats, nausea, vomiting, diarrhea , constipation, abdominal pain, pelvic pain, blood in urine or stool, dysuria, urinary frequency or urgency, loss of consciousness, rash, abnormal bruising or bleeding, focal weakness, numbness or tingling in arms or legs,or night sweats. The review of systems is otherwise negative other than for that already noted above, and at least 10 systems have been reviewed. Physical Exam Physical Exam: The patient is awake, alert, well developed and well nourished, normocephalic and atraumatic, lying in bed and in no acute distress. HEENT--PERRL, EOMI, mucous membranes and oropharynx normal. Neck--supple. No JVD. No bruits. Thyroid normal, trachea midline, no adenopathy. Heart--normal S1 and S2. No murmurs, rubs or gallops. Lungs--clear bilaterally, no respiratory distress, no accessory muscle use. Abdomen--normal bowel sounds and soft. Nontender. Nondistended, no hernias or masses, no organomegaly. Extremities--no cyanosis or clubbing. No edema. Dermatologic--right forearm with ALMA wrapping over abrasion Neurologic--cranial nerves II through XII grossly intact. Rheumatologic--limited exam Psychiatric--normal affect. Results & Data Results & Data ([facility]) Vital Signs (Past 12 Hours) Vital Signs Temp Pulse Resp BP Pulse Ox 10/04/21 00:00 80 19 115/64 92 10/03/21 23:30 71 22 117/71 92 10/03/21 23:00 74 14 121/63 100 10/03/21 22:56 74 24 119/69 92 10/03/21 22:55 89 31 H 10/03/21 22:00 73 18 97 10/03/21 21:39 36.8 C 85 24 136/72 98 10/03/21 21:38 77 17 136/72 95 10/03/21 21:37 76 15 96 Laboratory Results Laboratory Results WBC 4.52 K/uL (4.8-10.8) L 10/03/21 21:45 RBC 4.29 M/uL (4.7-6.1) L 10/03/21 21:45 Hgb 11.9 g/dL (14.0-18.0) L 10/03/21 21:45 Hct 37.5 % (42-52) L 10/03/21 21:45 MCV 87.4 fL (80-100) 10/03/21 21:45 MCH 27.7 pg (25-34) 10/03/21 21:45 MCHC 31.7 g/dL (32-36) L 10/03/21 21:45 RDW Std Deviation 49.9 fL (36.4-46.3) H 10/03/21 21:45 RDW Coeff of Lianne 15.6 % (11.5-14.5) H 10/03/21 21:45 Plt Count 178 K/uL (130-400) 10/03/21 21:45 MPV 9.9 fL (7.4-10.4) 10/03/21 21:45 Immature Gran % (Auto) 2.7 % 10/03/21 21:45 Neut % (Auto) 64.1 % 10/03/21 21:45 Lymph % (Auto) 24.3 % 10/03/21 21:45 [place] % (Auto) 5.8 % 10/03/21 21:45 Eos % (Auto) 2.9 % 10/03/21 21:45 Baso % (Auto) 0.2 % 10/03/21 21:45 Neut # (Auto) 2.90 K/uL (1.4-6.5) 10/03/21 21:45 Lymph # (Auto) 1.10 K/uL (1.2-3.4) L 10/03/21 21:45 [place] # (Auto) 0.26 K/uL (0.11-0.59) 10/03/21 21:45 Eos # (Auto) 0.13 K/uL (0-0.5) 10/03/21 21:45 Baso # (Auto) 0.01 K/uL (0-0.2) 10/03/21 21:45 Immature Gran # (Auto) 0.12 K/uL (0.00-0.02) H 10/03/21 21:45 PT 24.0 Seconds (9.0-12.0) H 10/03/21 21:45 INR 2.4 (0.9-1.1) H 10/03/21 21:45 Sodium 137 mmol/L (136-145) 10/03/21 21:45 Potassium 3.9 mmol/L (3.5-5.1) 10/03/21 21:45 Chloride 105 mmol/L (98-107) 10/03/21 21:45 Carbon Dioxide 23 mmol/L (21-32) 10/03/21 21:45 Anion Gap 9 (3-11) 10/03/21 21:45 BUN 31 mg/dl (6-23) H 10/03/21 21:45 Creatinine 1.19 mg/dl (0.6-1.4) 10/03/21 21:45 Est Cr Clr Drug Dosing 65.6 ml/min 10/03/21 21:45 Est GFR ( Amer) 68.4 ml/min 10/03/21 21:45 Est GFR (Non-Af Amer) 59.0 ml/min 10/03/21 21:45 BUN/Creatinine Ratio 26.1 (10-20) H 10/03/21 21:45 Glucose 273 mg/dl (70-99(Fasting)) H 10/03/21 21:45 POC Glucose 289 mg/dl (70-99) H 10/03/21 21:59 Calcium 9.3 mg/dl (8.5-10.1) 10/03/21 21:45 Magnesium 1.9 mg/dl (1.7-2.4) 10/03/21 21:45 Total Bilirubin 0.5 mg/dl (0.2-1.0) 10/03/21 21:45 AST 16 U/L (13-39) 10/03/21 21:45 ALT 5 U/L (7-52) L 10/03/21 21:45 Alkaline Phosphatase 75 U/L (34-104) 10/03/21 21:45 Troponin I High Sens 15.1 pg/ml (0-20) 10/03/21 21:45 Total Protein 6.0 gm/dl (6.0-8.3) 10/03/21 21:45 Albumin 3.7 gm/dl (3.4-5.0) 10/03/21 21:45 Globulin 2.3 gm/dl (2.5-4.0) L 10/03/21 21:45 Albumin/Globulin Ratio 1.6 (0.9-2) 10/03/21 21:45 TSH 1.804 uIu/ml (0.300-4.500) 10/03/21 21:45 Urine Color Dark Yellow 10/04/21 02:50 Urine Appearance Clear (Clear) 10/04/21 02:50 Urine pH 5.0 (4.5-7.5) 10/04/21 02:50 Ur Specific [place] 1.024 (1.000-1.030) 10/04/21 02:50 Urine Protein Negative (Negative) 10/04/21 02:50 Urine Glucose (UA) Negative (Negative) 10/04/21 02:50 Urine Ketones Trace (Negative) H 10/04/21 02:50 Urine Blood Negative (Negative) 10/04/21 02:50 Urine Nitrite Negative (Negative) 10/04/21 02:50 Urine Bilirubin Negative (Negative) 10/04/21 02:50 Urine Urobilinogen Negative (Negative) 10/04/21 02:50 Ur Leukocyte Esterase Negative (Negative) 10/04/21 02:50 SARS-CoV-2, RNA, NAAT NEGATIVE (NEGATIVE) 10/03/21 21:55 Diagnostic Findings [facility] Patient: OSBALDO AGUILAR (Male) : 45 Status: ER Date: 10/03/21 22:41 Room #: History: fall, struck L forehead Slices: 68 Priors: Tech: Debi Horn @ [phone] Exams: CT HEAD Contrast: Accession Numbers: [id number] Referring Physician: WILMER MAYO Preliminary Findings Only See Final Report For Complete Findings CT HEAD: No evidence of acute intracranial pathology. Bilateral lens replacements. Left mastoid effusion. No comparisons. Radiologist: Shama Bentley MD Study ready at 22:45 and initial results transmitted at 22:54 *This report constitutes a preliminary interpretation only. Non-acute findings felt to be unrelated to the clinical presentation may not be discussed in this report. The study will be interpreted and a final report will be generated by the local Radiologist the following shift. To reach the [facility] radiology department call [phone]. If a discrepancy is found between the preliminary and final interpretations of this study, please notify us via our Client Portal at [email or web address], under QA Exams. You can also fax this report with a description of the discrepancy, or include the final report, to our daytime fax number [phone]. If faxing, please indicate the severity of discrepancy using one of the following categories: [ ] 1 - Agree/Informational [ ] 2 - Unlikely to Affect Management [ ] 3 - Possible Eventual Change of Management [ ] 4 - Probable Immediate Change of Management For all other patient related information, please fax us at [phone]. [id number] [facility] Patient: OSBALDO AGUILAR (Male) : 45 Status: ER Date: 10/03/21 22:42 Room #: History: fall, struck L forehead Slices: 1012 Priors: Tech: Kory Debi @ [phone] Exams: CT C SPINE Contrast: Accession Numbers: [id number] Referring Physician: WILMER MAYO Preliminary Findings Only See Final Report For Complete Findings CT C SPINE: No evidence of acute cervical spine pathology. Status post anterior discectomy and cervical fusion of the C4 and C5 segments with solid interbody fusion, without evidence of surgical hardware complication. Mild to moderate calcified atherosclerotic disease of the carotid bifurcations. Status post median sterno rut. Thyroid isthmus nodule. Bilateral mastoid effusions. No comparisons. Radiologist: Shama Bentley MD Study ready at 22:46 and initial results transmitted at 22:56 *This report constitutes a preliminary interpretation only. Non-acute findings felt to be unrelated to the clinical presentation may not be discussed in this report. The study will be interpreted and a final report will be generated by the local Radiologist the following shift. To reach the hospital radiology department call [phone]. If a discrepancy is found between the preliminary and final interpretations of this study, please notify us via our Client Portal at [email or web address], under QA Exams. You can also fax this report with a description of the discrepancy, or include the final report, to our daytime fax number [phone]. If faxing, please indicate the severity of discrepancy using one of the following categories: [ ] 1 - Agree/Informational [ ] 2 - Unlikely to Affect Management [ ] 3 - Possible Eventual Change of Management [ ] 4 - Probable Immediate Change of Management For all other patient related information, please fax us at [phone]. Code Status & VTE Plan Code Status Full code VTE Prophylaxis Plan VTE Prophylaxis will be ordered: Yes PG Care Time/CCT Total # of Minutes Spent Total Time Spent with Patient: Total time spent is greater than 50% in coordination of care (as documented) at patient's floor/unit and/or counseling patient: Coding Level of Care Code 93029 Initial Inpt Care Lvl 3 Diagnoses Status post fall Z91.81 Generalized weakness R53.1 CAD (coronary artery disease) I25.10 Coronary Disease-Associated Artery/Lesion type: kaw artery [place] vs. transplanted heart: kaw heart Associated angina: without angina PAF (paroxysmal atrial fibrillation) I48.0 Chronic kidney disease, stage 3a N18.3 Rheumatoid arthritis M06.9 Rheumatoid arthritis location: unspecified site Rheumatoid factor presence: unspecified presence Parkinsonism G20 Parkinsonism type: unspecified Diabetes E11.42; Z79.4 Diabetes mellitus type: type 2 Diabetes mellitus usp insulin use: with usp use Diabetes mellitus complication status: with neurologic complications Diabetes mellitus complication detail: with polyneuropathy Polymyositis M33.20 Prostate cancer C61 History of seizures Z87.898 (1) CAD (coronary artery disease) Coronary Disease-Associated Artery/Lesion type: kaw artery [place] vs. transplanted heart: kaw heart Associated angina: without angina Qualified Code(s): I25.10 - Atherosclerotic heart disease of kaw coronary artery without angina pectoris (2) Rheumatoid arthritis Rheumatoid arthritis location: unspecified site Rheumatoid factor presence: unspecified presence Qualified Code(s): M06.9 - Rheumatoid arthritis, unspecified (3) Parkinsonism Parkinsonism type: unspecified Qualified Code(s): G20 - Parkinson's disease (4) Diabetes Diabetes mellitus type: type 2 Diabetes mellitus development mechanic insulin use: with development mechanic use Diabetes mellitus complication status: with neurologic compli cations Diabetes mellitus complication detail: with polyneuropathy Qualified Code(s): E11.42 - Type 2 diabetes mellitus with diabetic polyneuropathy; Z79.4 - [facility]FP (current) use of insulin
[2021-10-04 03:07] LABS: Appearance Urine Clear (Clear); Bilirubin Urine Negative (Negative); Blood Urine Negative (Negative); Color Urine Dark Yellow; Glucose Urine UA Negative (Negative); Ketones Urine Trace (Negative); Leukocyte Esterase Urine Negative (Negative); Nitrite Urine Negative (Negative); Protein Urine Negative (Negative); Specific Gravity Urine 1.024 (1.000-1.030); Urobilinogen Urine Negative (Negative)
[2021-10-04] MEDS ORDERED: GLUCOSE 10 TABS/TUBE PO PRN (03:09)
[2021-10-04] MEDS ORDERED: ALBUTEROL HFA 8 GM INHALER INH PRN (03:09)
[2021-10-04] MEDS ORDERED: DEXTROSE 50% 50 ML SYRINGE IV PRN (03:09)
[2021-10-04] MEDS ORDERED: CARBOHYDRATES FOR HYPOGLYCEMIA PO PRN (03:09)
[2021-10-04] MEDS ORDERED: GLUCAGON FOR INJ 1 MG VIAL SQ PRN (03:09)
[2021-10-04] MEDS ORDERED: DICLOFENAC SOD 1% GEL 100 GM TUBE EXT PRN (03:09)
[2021-10-04] MEDS ORDERED: ONDANSETRON INJ 2 MG/ML 2 ML VIAL IV PRN (03:09)
[2021-10-04] MEDS ORDERED: GLUCOSE 40% GEL 15 GM TUBE PO PRN (03:09)
--- NOTE | 2021-10-04 07:05 | CT Scan Report ---
CT SCAN OF THE BRAIN WITHOUT IV CONTRAST CLINICAL HISTORY: Fall. Head injury. COMPARISON STUDY: CT of the brain dated 09/27/2021. TECHNIQUE: Unenhanced axial CT scan of the brain is performed from the vertex to the skull base. A do se lowering technique was utilized adhering to the principles of ALARA. CT DOSE: 1471.68 mGy.cm FINDINGS: Brain parenchyma: There is age-related involutional change noting [id number] subcortical and pe riventricular microangiopathic disease. There is no hemorrhage, mass effect, or evidence of acute ter ritorial ischemia by CT criteria. A small chronic lacunar infarct is noted in the right cerebellar he misphere. Gallego-white matter differentiation is preserved. No extra-axial fluid collection is seen. Ventricles, sulci, cisterns: Prominent secondary to involutional change. Intracranial vasculature: There is atherosclerotic calcification of the cavernous carotid and vertebr al arteries. Calvarium: The skeletal structures are osteopenic. No depressed calvarial fracture is identified. Sinuses and mastoids: The visualized paranasal sinuses are clear. There are left larger than right ma stoid effusions. Orbits: The bony orbits are grossly intact. There are bilateral ocular lens implants. IMPRESSION: There is no hemorrhage, mass effect, or evidence of acute territorial ischemia by CT janes avina. ACT 112: Negative or not required by law. Electronically signed by: Tan Burleson M.D. 10/04/2021 7:04 AM
--- NOTE | 2021-10-04 07:15 | CT Scan Report ---
CT SCAN OF THE CERVICAL SPINE CLINICAL HISTORY: Fall. COMPARISON STUDY: CT of the cervical spine dated 07/31/2021. TECHNIQUE: CT scan of the cervical spine is performed from the skull base to the upper thoracic spine . Images are reviewed in the axial, sagittal, and coronal planes. IV contrast was not administered fo r this examination. A dose lowering technique was utilized adhering to the principles of ALARA. FINDINGS: Skeletal structures: The skeletal structures are osteopenic. There is no evidence of fracture or subl uxation involving the cervical spine. Vertebral body height and alignment are maintained. There is po stoperative change from anterior fusion seen at C4-C5. There is straightening of the cervical lordosi s. The odontoid process and lateral masses are intact. The atlantoaxial articulation is preserved not ing productive degenerative change. The spinous processes appear intact. There is mild multilevel fac et arthropathy. Midline sternotomy wires are partially imaged. Intervertebral discs: There has been discectomy at C4-C5. Moderate disc space narrowing is seen at C5 -C6. Mild narrowing is seen at the remaining cervical levels. Central canal: Posterior disc osteophyte complexes at C3-C4, C4-C5, C5-C6, and C6-C7 may contribute t o multilevel acquired compromise of the central canal. Soft tissues: The prevertebral and paraspinous soft tissues are within normal limits. Atherosclerotic calcification is noted in the carotid bulbs. Calvarium: The visualized calvarium at the skull base appears intact. Brain parenchyma: Partially visualized brain parenchyma at the skull base is within normal limits. Sinuses and mastoids: Trace mucosal thickening is seen in the maxillary antra. There are left larger than right mastoid effusions. Lung apices: Clear as visualized. IMPRESSION: 1. There is no evidence of fracture or subluxation involving the cervical spine. 2. Osteopenia with postoperative and spondylotic change as above. ACT 112: Negative or not required by law. Electronically signed by: Tan Burleson M.D. 10/04/2021 7:13 AM
[2021-10-04 07:24] LABS: Estimated Average Glucose 171 mg/dl; Hemoglobin A1C 7.6 % (4.5-5.6)
[2021-10-04] MEDS: FEXOFENADINE HCL 180 MG TAB PO SCH (08:31)
[2021-10-04] MEDS: CARBIDOPA/LEVODOPA 25/100MG TAB PO SCH ×3 (08:31→21:21)
[2021-10-04] MEDS: FINASTERIDE 5 MG TAB PO SCH (08:31)
[2021-10-04] MEDS: INSULIN ASPART PER UNIT SC SCH ×4 (08:31→21:17)
[2021-10-04] MEDS: ASPIRIN 81 MG ECTAB PO SCH (08:31)
[2021-10-04] MEDS: INSULIN HUMAN NPH SQ SCH (08:32)
[2021-10-04] MEDS: GABAPENTIN 300 MG CAP PO SCH ×2 (08:32→21:23)
[2021-10-04] MEDS: FLUTICASONE FUROATE 100MCG 14 PUFFS/INHALER INH SCH (08:32)
[2021-10-04] MEDS: SENNA 8.6 MG TAB PO SCH ×2 (08:33→21:20)
[2021-10-04] MEDS: levETIRAcetam 500 MG TAB PO SCH ×2 (08:33→21:22)
[2021-10-04] MEDS: UMECLIDINIUM/VILANTEROL 62.5/25MCG 7 PUFFS/INHALER INH SCH (08:33)
[2021-10-04] MEDS: predniSONE 5 MG TAB PO SCH (08:33)
[2021-10-04] MEDS: TOPIRAMATE 100 MG TAB PO SCH ×2 (08:33→21:23)
[2021-10-04] MEDS ORDERED: INSULIN GLARGINE SOLOSTAR 100 UNITS/ML 3 ML PEN SQ SCH (09:00)
[2021-10-04] MEDS ORDERED: NON-FORMULARY MEDICATION (Fluticasone-Umeclidin-Vilanter [Trelegy Ellipta] 100-62.5-25 mcg INH SCH (09:00)
[2021-10-04] MEDS ORDERED: FUROSEMIDE 20 MG TAB PO SCH (09:00)
[2021-10-04] MEDS ORDERED: lamoTRIgine 25 MG TAB PO SCH (09:00)
--- NOTE | 2021-10-04 09:00 | XRay Report ---
XR chest 1V portable CLINICAL HISTORY: weakness, ILD, reported o2 89% at home TECHNIQUE: Single frontal radiograph of the chest was obtained. Comparison: Comparison is made to chest radiograph 09/27/2021 FINDINGS: Median sternotomy wires are unchanged including fractures of the first and fourth wires. Cardiomegaly is noted. The lungs are clear although evaluation of the left lateral lung base is limited. No evide nce of pleural effusion or pneumothorax. IMPRESSION: No acute chest disease. ACT 112: Negative or not required by law. Electronically signed by: Russell Sifuentes M.D. 10/04/2021 8:58 AM
--- NOTE | 2021-10-04 10:13 | Hospitalist Progress Note ---
Date of Service October 04, 2021 Assessment & Plan (1) Status post fall: (2) Generalized weakness: (3) Acute dehydration: (4) PAF (paroxysmal atrial fibrillation): (5) Seizure: (6) Rheumatoid arthritis: (7) Chronic kidney disease, stage 3a: (8) CAD (coronary artery disease): Plan: Xavi is a 76 year old male with past medical history of TIA, paroxysmal A. Fib on warfarin, RA, Polymyositis, T2DM, Interstitial lung disease, and parkinson's disease admitted for generalized weakness and syncopal episode. Generalized weakness/Syncopal episode: -CBC, BMP unremarkable. -EKG w/ signs of arrhythmia, no signs of acute ischemia. -Echo from 07/02 w/ EF >70%, no regional wall motion abnormalities. -Recently started on lamotrigine, decreased PO intake. -May be 2/2 dehydration vs new medication/polypharmacy vs combo -Holding lamictal, rehydration. -PT/OT evaluation. CAD: -Continue home aspirin. Holding Furosemide as part of dehydration picture. Paroxysmal Atrial Fibrillation: -INR 2.4 -Continue home warfarin. History of Seizures: -Continue home gabapentin, topiramate, keppra. -Holding new lamictal medication over concern for contribution to weakness/imbalance. CKD: -Creatinine 1.19 on BMP, baseline creat 1.07-1.34 Rheumatoid arthritis/polymyositis: -Continue home prednisone, polymyositis. Parkinsonism: -Continue home carbidopa/levodopa. DM: -Continue glargine 20units BID. -SSI w/ glucose checks. DVT Prophylaxis: Home warfarin F/E/N/GI: Carb consistent TD2M Code status: Full code Dispo: Med/Surg. Admission and Anticipated Discharge Date Admission Date: October 04, 2021 Supervising Physician Co-Signing Physician Notes I personally examined the patient and verified all peña points of history and exam, discussed case, and agree with decision making with Dr Thakkar notes that he was actually doing pretty well since last discharge - was working with therapy and last week was actually walking ~1000ft in his backyard. thinks that the new medication started by neurology (chart reviewed -lamictal) is likely making him woozy, as he notes that he started feeling worse shortly after it was started. also notes no hx chf that he's aware of иван noted nad heent nc at mmm speech does seem slightly slow/slurred (not markedly, but having cared for a him a lot over the last year, not exactly his normal) no focal neuro deficits weakness - does seem plausible that lamictal is causing loss of balance/reduced consciousness - especially given his hx that he was doing better until right around starting it. stop for now - he notes he would prefer not to start something else for headaches right now - just watch/wait/tylenol prn. also discussed since no CHF hx - lasix could potentially be causing a degree of volume depletion contributing - will hold for now as well. PT/OT eval and treat, his goal is home otherwise as above Subjective Patient seen at the bedside. Patient states lately he's had decreased appetite that has caused him to be more dehydrated. He states he felt weak before he came in, fell onto his knees and then elbow and finally hitting his head at the left frontal bone area. He passed out when this happened but states this has happened with previous falls as well. States he was recently started on a new medication by neurologist. Denies any nausea, vomiting, shortness of breath, chest pain. Review of Systems Constitutional: as per Subjective / HPI Physical Exam Constitutional: WD/WN, vitals as above Eyes: PERRL, conjunctivae normal, anicteric sclerae Respiratory: normal respiratory effort, lungs clear to auscultation Cardiovascular: RRR, no murmur, no edema Musculoskeletal: no cyanosis or clubbing, extremities motor strength 5/5 Skin: Bruises at bilateral arms, dressing over right elbow, small non-bleeding abrasion at right anterior knee. Results & Data Results & Data ([facility]) Vital Signs (Past 12 Hours) Vital Signs Temp Pulse Pulse Resp BP BP Pulse Ox 10/04/21 07:55 36.7 C 70 18 103/65 94 10/04/21 03:05 36.5 C 67 18 123/73 97 10/04/21 03:00 36.8 C 85 16 105/65 95 10/04/21 02:30 83 16 97 10/04/21 02:04 72 19 106/51 L 98 10/04/21 02:01 80 27 H 95 10/04/21 02:00 71 17 97 10/04/21 01:30 74 20 110/70 06/07/22 01:00 16 119/71 96 10/04/21 00:30 66 18 114/71 91 10/04/21 00:00 80 19 115/64 92 10/03/21 23:30 71 22 117/71 92 10/03/21 23:00 74 14 121/63 100 10/03/21 22:56 74 24 119/69 92 10/03/21 22:55 89 31 H Resident Activity Tracking Resident Involvement: Resident Care Provided Care Provided: Adult Hospital Medicine (1) Rheumatoid arthritis Rheumatoid arthritis location: unspecified site Rheumatoid factor presence: unspecified presence Qualified Code(s): M06.9 - Rheumatoid arthritis, unspecified (2) CAD (coronary artery disease) Associated angina: without angina Coronary Disease-Associated Artery/Lesion type: [place] artery [place] vs. transplanted heart: [place] heart Qualified Code(s): I25.10 - Atherosclerotic heart disease of [place] coronary artery without angina pectoris
[2021-10-04] MEDS: POLYETHYLENE (MIRALAX) 17 GM PACK PO PRN ×2 (12:53→21:19)
[2021-10-04] MEDS: WARFARIN SOD 5 MG TAB PO SCH (16:18)
[2021-10-04] MEDS: ACETAMINOPHEN 325 MG TAB PO PRN ×2 (16:19→21:18)
[2021-10-04] MEDS: INSULIN GLARGINE SOLOSTAR 100 UNITS/ML 3 ML PEN SQ SCH (21:16)
[2021-10-04] MEDS: allopurinoL 100 MG TAB PO SCH (21:22)
[2021-10-04] MEDS: CHOLECALCIFEROL 1,000 UNITS 25 MCG TAB PO SCH (21:23)
[2021-10-04] MEDS: ATORVASTATIN 40 MG TAB PO SCH (21:23)
[2021-10-05 07:44] LABS: Basophils # (auto) 0.01 K/uL (0-0.2); Basophils % (auto) 0.3 %; Eosinophils # (auto) 0.14 K/uL (0-0.5); Eosinophils % (auto) 3.7 %; Hemoglobin 10.8 g/dL (14.0-18.0); Immature Granulocytes # (auto) 0.07 K/uL (0.00-0.02); Immature Granulocytes % (auto) 1.8 %; Lymphocytes # (auto) 1.15 K/uL (1.2-3.4); Mean Corpuscular Hemoglobin 27.8 pg (25-34); Mean Corpuscular Hgb Conc 31.8 g/dL (32-36); Mean Corpuscular Volume 87.6 fL (80-100); Mean Platelet Volume 9.6 fL (7.4-10.4); Monocytes # (auto) 0.27 K/uL (0.11-0.59); Neutrophils # (auto) 2.19 K/uL (1.4-6.5); Neutrophils % (auto) 57.2 %; Platelet Count 148 K/uL (130-400); RDW Coefficient of Variation 15.4 % (11.5-14.5); RDW Standard Deviation 49.3 fL (36.4-46.3); Red Blood Count 3.88 M/uL (4.7-6.1); White Blood Count 3.83 K/uL (4.8-10.8)
[2021-10-05] MEDS: UMECLIDINIUM/VILANTEROL 62.5/25MCG 7 PUFFS/INHALER INH SCH (07:44)
[2021-10-05] MEDS: FLUTICASONE FUROATE 100MCG 14 PUFFS/INHALER INH SCH (07:45)
[2021-10-05] MEDS: TOPIRAMATE 100 MG TAB PO SCH ×2 (07:45→20:32)
[2021-10-05] MEDS: GABAPENTIN 300 MG CAP PO SCH ×2 (07:45→20:32)
[2021-10-05] MEDS: levETIRAcetam 500 MG TAB PO SCH ×2 (07:45→20:32)
[2021-10-05] MEDS: SENNA 8.6 MG TAB PO SCH ×2 (07:45→20:32)
[2021-10-05] MEDS: ASPIRIN 81 MG ECTAB PO SCH (07:46)
[2021-10-05] MEDS: FEXOFENADINE HCL 180 MG TAB PO SCH (07:46)
[2021-10-05] MEDS: FINASTERIDE 5 MG TAB PO SCH (07:46)
[2021-10-05] MEDS: CARBIDOPA/LEVODOPA 25/100MG TAB PO SCH ×3 (07:46→20:31)
[2021-10-05] MEDS: predniSONE 5 MG TAB PO SCH (07:46)
[2021-10-05 07:48] LABS: INR 2.1 (0.9-1.1); Prothrombin Time 21.2 Seconds (9.0-12.0)
[2021-10-05] MEDS: POLYETHYLENE (MIRALAX) 17 GM PACK PO PRN ×2 (07:55→20:38)
[2021-10-05 07:59] LABS: Est GFR (African American) 76.9 ml/min; Potassium 3.7 mmol/L (3.5-5.1)
--- NOTE | 2021-10-05 07:59 | Hospitalist Progress Note ---
Date of Service October 05, 2021 Assessment & Plan (1) Status post fall: (2) Generalized weakness: (3) Acute dehydration: (4) PAF (paroxysmal atrial fibrillation): (5) Seizure: (6) Rheumatoid arthritis: (7) Chronic kidney disease, stage 3a: (8) CAD (coronary artery disease): Plan: Xavi is a 76 year old male with past medical history of TIA, paroxysmal A. Fib on warfarin, RA, Polymyositis, T2DM, Interstitial lung disease, and parkinson's disease admitted for generalized weakness and syncopal episode. Generalized weakness/Syncopal episode: -CBC, BMP unremarkable. -EKG w/ signs of arrhythmia, no signs of acute ischemia. -Echo from 07/02 w/ EF >70%, no regional wall motion abnormalities. -Recently started on lamotrigine, decreased PO intake. -May be 2/2 dehydration vs new medication/polypharmacy vs combo -Holding lamictal, rehydration. -PT/OT evaluation. CAD: -Continue home aspirin. Holding Furosemide as part of dehydration picture. Paroxysmal Atrial Fibrillation: -INR 2.4 -Continue home warfarin. History of Seizures: -Continue home gabapentin, topiramate, keppra. -Holding new lamictal medication over concern for contribution to weakness/imbalance. CKD: -Creatinine 1.19 on BMP, baseline creat 1.07-1.34 Rheumatoid arthritis/polymyositis: -Continue home prednisone, polymyositis. Parkinsonism: -Continue home carbidopa/levodopa. DM: -Continue glargine 20units BID. -SSI w/ glucose checks. DVT Prophylaxis: Home warfarin F/E/N/GI: Carb consistent TD2M Code status: Full code Dispo: Med/Surg. Admission and Anticipated Discharge Date Admission Date: October 04, 2021 Supervising Physician Co-Signing Physician Notes I personally examined the patient and verified all peña points of history and exam, discussed case, and agree with decision making with Dr Thakkar feeling better did reasonably well w PT but doesn't quite feel good enough to go home - thinks that with another day for meds to wear off he should be good иван noted nad heent nc at mmm speech more fluent no focal neuro deficits weakness - does seem plausible that lamictal is causing loss of balance/reduced consciousness - especially given his hx that he was doing better until right around starting it. stopped for now - he notes he would prefer not to start something else for headaches right now - just watch/wait/tylenol prn. also discussed since no CHF hx - lasix could potentially be causing a degree of volume depletion contributing - holding that for now as well. PT/OT eval and treat, his goal is home, hopefully soon otherwise as above Subjective Patient seen at bedside this morning. Patient states he's feeling better today and doesn't feel as weak. Denies any shortness of breath, chest pain, fevers, chills. Review of Systems Constitutional: as per Subjective / HPI Physical Exam Constitutional: WD/WN, vitals as above Eyes: PERRL, conjunctivae normal, anicteric sclerae Respiratory: normal respiratory effort, lungs clear to auscultation Cardiovascular: RRR, no murmur, no edema Musculoskeletal: no cyanosis or clubbing, extremities motor strength 5/5 Results & Data Results & Data ([facility]) Vital Signs (Past 12 Hours) Vital Signs Temp Pulse Resp BP BP Pulse Ox 10/05/21 07:47 36.7 C 59 L 16 104/64 95 10/04/21 20:59 36.5 C 66 20 106/63 94 Resident Activity Tracking Resident Involvement: Resident Care Provided Care Provided: Adult Hospital Medicine (1) Rheumatoid arthritis Rheumatoid arthritis location: unspecified site Rheumatoid factor presence: unspecified presence Qualified Code(s): M06.9 - Rheumatoid arthritis, unspecified (2) CAD (coronary artery disease) Associated angina: without angina Coronary Disease-Associated Artery/Lesion type: [place] artery [place] vs. transplanted heart: [place] heart Qualified Code(s): I25.10 - Atherosclerotic heart disease of [place] coronary artery without angina pectoris
[2021-10-05 08:00] LABS: BUN Creatinine Ratio 25.9 (10-20); Creatinine Clr Calc Pharmacy 71.9 ml/min; Est GFR (Non-African American) 66.3 ml/min
[2021-10-05] MEDS: INSULIN GLARGINE SOLOSTAR 100 UNITS/ML 3 ML PEN SQ SCH ×2 (09:39→20:29)
[2021-10-05] MEDS: INSULIN HUMAN NPH SQ SCH (09:39)
[2021-10-05] MEDS: INSULIN ASPART PER UNIT SC SCH ×4 (09:39→20:38)
--- NOTE | 2021-10-05 13:48 | Electrocardiogram Report ---
Test Reason : Blood Pressure : / mmHG Vent. Rate : 078 BPM Atrial Rate : 078 BPM P-R Int : 146 ms QRS Dur : 084 ms QT Int : 418 ms P-R-T Axes : 035 027 105 degrees QTc Int : 476 ms Sinus rhythm with marked sinus arrhythmia Nonspecific T wave abnormality Abnormal ECG When compared with ECG of 27-SEP-2021 17:29, No significant change was found Confirmed by Bhanu Mcdonald ([id number]) on 10/05/2021 1:48:15 PM Referred By: REFERRED SELF Confirmed By:Bhanu Mcdonald
[2021-10-05] MEDS ORDERED: WARFARIN SOD 7.5 MG TAB PO SCH (16:00)
--- NOTE | 2021-10-05 16:40 | Billing Data ---
Date of Service October 05, 2021 Coding Level of Care Code 07544 Subseq Hosp Care Lvl 2
[2021-10-05] MEDS: CHOLECALCIFEROL 1,000 UNITS 25 MCG TAB PO SCH (20:31)
[2021-10-05] MEDS: allopurinoL 100 MG TAB PO SCH (20:31)
[2021-10-05] MEDS: ATORVASTATIN 40 MG TAB PO SCH (20:32)
[2021-10-06] MEDS: ACETAMINOPHEN 325 MG TAB PO PRN (05:42)
[2021-10-06] MEDS ORDERED: FUROSEMIDE 20 MG TAB PO SCH (08:00)
[2021-10-06] MEDS: predniSONE 5 MG TAB PO SCH (08:13)
[2021-10-06] MEDS: levETIRAcetam 500 MG TAB PO SCH (08:13)
[2021-10-06] MEDS: TOPIRAMATE 100 MG TAB PO SCH (08:13)
[2021-10-06] MEDS: FEXOFENADINE HCL 180 MG TAB PO SCH (08:13)
[2021-10-06] MEDS: ASPIRIN 81 MG ECTAB PO SCH (08:14)
[2021-10-06] MEDS: SENNA 8.6 MG TAB PO SCH (08:14)
[2021-10-06] MEDS: CARBIDOPA/LEVODOPA 25/100MG TAB PO SCH ×2 (08:14→12:54)
[2021-10-06] MEDS: FLUTICASONE FUROATE 100MCG 14 PUFFS/INHALER INH SCH (08:14)
[2021-10-06] MEDS: FINASTERIDE 5 MG TAB PO SCH (08:14)
[2021-10-06] MEDS: UMECLIDINIUM/VILANTEROL 62.5/25MCG 7 PUFFS/INHALER INH SCH (08:14)
[2021-10-06] MEDS: GABAPENTIN 300 MG CAP PO SCH (08:14)
[2021-10-06 08:39] LABS: Prothrombin Time 20.5 Seconds (9.0-12.0)
[2021-10-06] MEDS: INSULIN GLARGINE SOLOSTAR 100 UNITS/ML 3 ML PEN SQ SCH (08:43)
[2021-10-06] MEDS: INSULIN HUMAN NPH SQ SCH (08:44)
[2021-10-06] MEDS: INSULIN ASPART PER UNIT SC SCH ×2 (08:44→12:52)
--- NOTE | 2021-10-06 16:06 | Discharge Summary ---
Date of Service October 06, 2021 Admission HPI Per Admitting Provider The patient is a 76-year-old male with a complicated past medical history, who presents to the emergency department with complaint of generalized weakness, where his legs gave way earlier in the day, and he fell sustaining injuries as noted above. He complained of some left frontal pain and some left neck pain. CT scan of head and cervical spine were both negative in the ED. Patient has been referred to medicine for admission for assessment for intermediate placement Admission Exam Per Admitting Provider The patient is awake, alert, well developed and well nourished, normocephalic and atraumatic, lying in bed and in no acute distress. HEENT--PERRL, EOMI, mucous membranes and oropharynx normal. Neck--supple. No JVD. No bruits. Thyroid normal, trachea midline, no adenopathy. Heart--normal S1 and S2. No murmurs, rubs or gallops. Lungs--clear bilaterally, no respiratory distress, no accessory muscle use. Abdomen--normal bowel sounds and soft. Nontender. Nondistended, no hernias or masses, no organomegaly. Extremities--no cyanosis or clubbing. No edema. Dermatologic--right forearm with ALMA wrapping over abrasion Neurologic--cranial nerves II through XII grossly intact. Rheumatologic--limited exam Psychiatric--normal affect. Principal Diagnosis Weakness Discharge Exam Constitutional WD/WN, vitals as above Eyes PERRL, conjunctivae normal, anicteric sclerae Respiratory normal respiratory effort, lungs clear to auscultation Cardiovascular RRR, no murmur, no edema Musculoskeletal no cyanosis or clubbing, extremities motor strength 5/5 Discharge Data Allergies Allergy/AdvReac Type Severity Reaction Status Date / Time Iodinated Contrast Media Allergy Severe Anaphylaxis Verified 10/04/21 01:34 shellfish derived Allergy Severe Anaphylaxis Verified 10/04/21 01:34 tamsulosin [From Flomax] Allergy Intermediate Itching Verified 10/04/21 01:34 Tetanus Vaccines and Toxoid Allergy Unknown Unknown Verified 10/04/21 01:34 Consultations 10/04/21 00:16 ED Decision to Admit Stat Ordered Studies 10/03/21 21:50 CT cervical spine wo con Urgent IMPRESSION: 1. There is no evidence of fracture or subluxation involving the cervical spine. 2. Osteopenia with postoperative and spondylotic change as above. CT head/brain wo con Urgent IMPRESSION: There is no hemorrhage, mass effect, or evidence of acute territorial ischemia by CT criteria. Hospital Course (1) Status post fall: (2) Generalized weakness: (3) Acute dehydration: (4) PAF (paroxysmal atrial fibrillation): (5) Seizure: (6) Rheumatoid arthritis: (7) Chronic kidney disease, stage 3a: (8) CAD (coronary artery disease): Xavi is a 76 year old male with past medical history of TIA, paroxysmal A. Fib on warfarin, RA, Polymyositis, T2DM, Interstitial lung disease, and parkinson's disease admitted for generalized weakness and syncopal episode. Generalized weakness/Syncopal episode: -CBC, BMP unremarkable. -EKG w/ signs of arrhythmia, no signs of acute ischemia. -Echo from 07/02 w/ EF >70%, no regional wall motion abnormalities. -Recently started on lamotrigine along with decreased PO intake. -May be 2/2 dehydration vs new medication/polypharmacy vs combo -Held lamictal and Lasix during hospital stay and discharge. -PT/OT cleared for home discharge. Total Time Total Time Spent Total Time Spent (In Minutes): <30 Discharge Plan Discharge Items Patient Disposition: Home - Self-Care Reason For Visit: S/P FALL, GENERAL WEAKNESS Discharge Diagnosis: Weakness, Fall Activity: Per Instructions section Non-emergency contact: Primary Care Provider and Neurologist Call non-emergency contact if: your symptoms worsen, your pain is worsening and your temperature is above 101 Follow-up/Referrals: Josh Gaspar MD [Primary Care Provider] - Diet: Regular Addtl Attending Provider Instructions: A discharge summary will be sent to your primary care physician to ensure continuity of care. You came into the hospital for weakness and a fall resulting in passing out. Upon arrival to the emergency department your lab work was within normal limits and your EKG did not have any signs of acute ischemic injury to the heart. An ultrasound of your heart from June showed you did not have any signs of wall motion abnormalities of your heart and had good output. You were recently started on a new medication for your headaches called rush. Your weakness may have been from this new medication or some contribution from deconditioning/dehydration. Please be sure to stay hydrated at home and be sure to follow up with your neurologist to go over possible contribution from the Lamictal. Please continue with your home PT/OT to prevent deconditioning. Follow-up: * You should be seen by your primary physician within the next week. Medications: Your medication list has been reviewed and reconciled upon discharge to ensure accuracy and continuity of care. An updated list of all your medications is included with your hospital discharge paperwork. Please review this list closely, and make note of any changes. * Please stop taking your Lamictal medication as a precaution to your new onset of symptoms. * Please stop taking your Lasix (furosemide) and discuss taking this with your PCP. Take your medications as instructed; do not skip a dose of your medicines. Make sure all of your doctors know every medicine you are taking (including [id number] medicines, vitamins, and supplements). let your primary care provider know before taking any new medicines because some of these may interact with your current medications, or may make your symptoms worse. CONTACT YOUR PRIMARY CARE PROVIDER if you experience any of the following: * Fevers or shaking chills * Shortness of breath not relieved by inhalers, fainting * Sudden abdominal distension not relieved by catheterization. * Difficulty following your treatment plan, or difficulty taking medications CALL 911 OR GO TO THE EMERGENCY DEPARTMENT if you experience any of the following: * Sudden, severe abdominal pain or nausea/vomiting * Severe chest pain, or chest pain that radiates (moves) to your jaw or arm * Sudden, severe shortness of breath or difficulty breathing It was was our pleasure taking care of you here at [facility] . Thank you for allowing us to participate in your care. Pending Studies at Discharge: No Stand-Alone Forms: [facility], Smoking Cessation Medications and DC Order Prescriptions: Continued topiramate [Topamax] 100 mg tablet 100 mg PO BID 30 Days Qty: 60 RF: 5 gabapentin 300 mg capsule 300 mg PO BID 30 Days Qty: 60 RF: 8 Trelegy Ellipta 100-62.5-25 mcg blister with device 1 inh inhalation QAM Qty: 60 RF: 5 prednisone 10 mg tablet 5 mg PO DAILY RF: 0 cholecalciferol (vitamin D3) [Vitamin D3] 50 mcg (2,000 unit) capsule 4,000 unit PO HS RF: 0 atorvastatin 40 mg tablet 40 mg PO HS RF: 0 fexofenadine [Karlee Allergy] 180 mg Tablet 180 mg PO QAM RF: 0 finasteride 5 mg tablet 5 mg PO QAM RF: 0 acetaminophen 325 mg Tablet 650 mg PO Q4H PRN (Reason: pain) Qty: 30 RF: 0 aspirin 81 mg Tablet,Delayed Release (Dr/Ec) 81 mg PO QAM Qty: 30 RF: 0 warfarin 5 mg tablet See Rx Instructions .ROUTE .COMPLEX RF: 0 albuterol sulfate [Ventolin HFA] 90 mcg/actuation HFA aerosol inhaler 2 puff INHALATION Q4H PRN (Reason: Shortness Of Breath Or Wheezing) RF: 0 diclofenac sodium [Voltaren Arthritis Pain] 1 % gel 2 g EXT QID PRN (Reason: Pain) RF: 0 allopurinol 100 mg tablet 100 mg QPM RF: 0 carbidopa-levodopa 25-100 mg tablet 1 tab PO TID RF: 0 levetiracetam [Keppra] 500 mg tablet 1,000 mg PO BID RF: 0 sennosides [Senokot] 8.6 mg tablet 17.2 mg PO BID Qty: 0 RF: 0 insulin aspart U-100 [Novolog Flexpen U-100 Insulin] 100 unit/mL (3 mL) insulin pen See Rx Instructions .ROUTE .COMPLEX Qty: 0 RF: 0 insulin glargine [Lantus Solostar U-100 Insulin] 100 unit/mL (3 mL) insulin pen 20 unit SUBCUT BID RF: 0 Novolin N NPH U-100 Insulin 100 unit/mL Suspension 20 unit SUBCUT DAILY RF: 0 polyethylene glycol 3350 [Miralax] 17 gram/dose powder 17 g PO BID PRN (Reason: Constipation) RF: 0 Discontinued furosemide [Lasix] 20 mg tablet 20 mg PO DAILY RF: 0 lamotrigine [Lamictal] 25 mg tablet See Rx Instructions .Route .COMPLEX Qty: 60 RF: 4 Discharge Orders: Discharge Order (Routine); Ordered 10/06/21 Ordered By: Seven Sen/Other Patient Handouts: Managing Type 2 Diabetes Admission Data Admit Date/Time: 10/04/21 02:11 Attending Provider: Jose R Navas Admit Provider: Shayan Mims Primary Care Provider: Josh Gaspar Other Providers: Shayan Mims Other Interventions: Discharge Summary Assessment (RN) Last Done: 10/06/21 16:22 Supervising Physician Co-Signing Physician Notes I personally examined the patient and verified all peña points of history and exam, discussed case, and agree with decision making with Dr Thakkar thinks he's continuing to feel better feels up to going home just wants to see how he does w PT later. d/w case management - [facility] иван noted nad heent nc at mmm breathing unlabored no accessory muscles good effort skin no rashes no pallor or icterus no focal neuro deficits weakness - does seem plausible that lamictal is causing loss of balance/reduced consciousness - especially given his hx that he was doing better until right around starting it. stopped for now - he notes he would prefer not to start something else for headaches right now - just watch/wait/tylenol prn. also discussed since no CHF hx - lasix could potentially be causing a degree of volume depletion contributing - holding that for now as well. stable for home, outpt PT, close PCP follow up otherwise as above Resident Activity Tracking Resident Involvement: Resident Care Provided Care Provided: Adult Hospital Medicine
[2021-10-06] MEDS: WARFARIN SOD 5 MG TAB PO SCH (16:25)
--- NOTE | 2021-10-06 18:09 | Billing Data ---
Date of Service October 06, 2021 Coding Level of Care Code D/C DAY MANAGEMENT <30 MINS
== END 2021-10-06 17:10 | disposition home health service (06) ==
LOC: ED 21:33 → 3N 10-04 02:11 → INTOOBSV 10-04 02:11 → SUATTDRO 10-04 02:11 → 3N 10-04 03:00

== ENCOUNTER 2021-10-13 18:33 | Observation (INO) ==
[2021-10-13 19:41] LABS: Basophils # (auto) 0.02 K/uL (0-0.2); Basophils % (auto) 0.5 %; Eosinophils # (auto) 0.22 K/uL (0-0.5); Eosinophils % (auto) 5.2 %; Hematocrit (blood only) 36.3 % (42-52); Hemoglobin 11.7 g/dL (14.0-18.0); Immature Granulocytes # (auto) 0.05 K/uL (0.00-0.02); Immature Granulocytes % (auto) 1.2 %; Lymphocytes # (auto) 1.04 K/uL (1.2-3.4); Lymphocytes % (auto) 24.5 %; Mean Corpuscular Hemoglobin 28.2 pg (25-34); Mean Corpuscular Hgb Conc 32.2 g/dL (32-36); Mean Corpuscular Volume 87.5 fL (80-100); Mean Platelet Volume 9.8 fL (7.4-10.4); Monocytes # (auto) 0.27 K/uL (0.11-0.59); Monocytes % (auto) 6.4 %; Neutrophils # (auto) 2.65 K/uL (1.4-6.5); Neutrophils % (auto) 62.2 %; Platelet Count 183 K/uL (130-400); RDW Coefficient of Variation 15.7 % (11.5-14.5); RDW Standard Deviation 50.5 fL (36.4-46.3); Red Blood Count 4.15 M/uL (4.7-6.1); White Blood Count 4.25 K/uL (4.8-10.8)
--- NOTE | 2021-10-13 19:51 | XRay Report ---
XR chest 1V portable CLINICAL HISTORY: Atypical chest pain TECHNIQUE: Single frontal radiograph of the chest was obtained. Comparison: Comparison is made to chest radiograph 10/03/2021 FINDINGS: Median sternotomy wires are unchanged. Cardiomegaly is noted. Atelectasis noted at the left lung base . No evidence of pleural effusion or pneumothorax. IMPRESSION: No acute chest disease. ACT 112: Negative or not required by law. Electronically signed by: Russell Sifuentes M.D. 10/13/2021 7:50 PM
[2021-10-13 19:58] LABS: Troponin I High Sensitivity 10.9 pg/ml (0-20)
[2021-10-13 20:08] LABS: INR 6.5 (0.9-1.1); Prothrombin Time 62.3 Seconds (9.0-12.0)
[2021-10-13 20:10] LABS: Alanine Aminotransferase 6 U/L (7-52); Albumin Globulin Ratio 1.5 (0.9-2); Albumin Level 3.8 gm/dl (3.4-5.0); Alkaline Phosphatase 63 U/L (34-104); Anion Gap 10 (3-11); Aspartate Aminotransferase 21 U/L (13-39); BUN Creatinine Ratio 14.3 (10-20); Bilirubin,Total 0.7 mg/dl (0.2-1.0); Blood Urea Nitrogen 18 mg/dl (6-23); Calcium 9.2 mg/dl (8.5-10.1); Carbon Dioxide 20 mmol/L (21-32); Chloride 108 mmol/L (98-107); Est GFR (African American) 63.8 ml/min; Globulin 2.6 gm/dl (2.5-4.0); Glucose 166 mg/dl (70-99(Fasting)); Lipase 17 U/L (11-82); Magnesium 1.7 mg/dl (1.7-2.4); Phosphorus 3.1 mg/dl (2.5-4.9); Potassium 3.5 mmol/L (3.5-5.1); Sodium 138 mmol/L (136-145); Total Protein 6.4 gm/dl (6.0-8.3)
[2021-10-13] MEDS ORDERED: ALBUT/IPRATROP 3MG/0.5MG NEB 3 ML VIAL NEB STA (21:24)
[2021-10-13] MEDS ORDERED: FUROSEMIDE 40 MG/4 ML VIAL IV ONE (22:08)
--- NOTE | 2021-10-13 22:58 | History & Physical Report ---
Date of Service October 13, 2021 Assessment & Plan (1) Generalized weakness: Plan: 76yo male presenting with progressive edema, generalized weakness and ambulatory dysfunction. Ground level fall at home secondary to weakness and legs giving out. Patient is afebrile, HD stable. Laboratory workup is largely unremarkable. Weakness most likely multifactorial. Deconditioning most likely playing a large part in patients weakness as well as worsening LE edema. Patient has been admitted to [facility] multiple times this year (04/28/21 -05/05/21, 05/24/21 - 06/01/21, 06/30/21 - 07/08/21, 07/20/21 - 07/29/21, 07/31/21 - 08/04/21, 09/29/21 - 10/06/21). He does not wish to go to a custodial but would most likely benefit greatly from some home assistance at least. He is planning to move to the [facility] at [facility] in November of this year. He will be moving into the independent living section. -Observation to medical -Diuresis with Lasix 20mg IV daily -Monitor I/Os, daily weights -PT/OT evaluation appreciated (2) Edema: Plan: Most likely secondary to discontinuation of home lasix. -lasix 20mg IV given in ER. Will continue Lasix 20mg IV for diuresis. Consider increasing to BID pending response -daily BMP -daily weights -monitor intake and output (3) Supratherapeutic INR: Plan: Patient is on Coumadin anticoagulation for mechanical aortic valve. Supratherapeutic INR today at 6.5. No bleeding. -Hold Coumadin -Monitor INR daily -Goal 2.5 - 3.5 (4) History of seizures: Plan: Chronic -Continue Keppra 1000mg po BID -Continue Topamax 100mg po BID (5) CAD (coronary artery disease): Plan: Chronic. Stable. Patient denies chest pain -Continue ASA 81mg po daily -Atorvastatin 40mg po qHS (6) Aortic valve replaced: Plan: Mechanical valve. On Coumadin anticoagulation -Hold now for supratherapeutic INR -Monitor INR daily -Goal 2.5 - 3.5 (7) Chronic pulmonary aspiration: Plan: History of chronic aspiration with prior pneumonia -Aspiration precautions (8) Diabetes: Plan: Chronic -Continue lantus 20u BID -ISS -Goal blood sugar 100 - 140 -Continue neurontin (9) HLD (hyperlipidemia): Plan: Chronic -Continue Atorvastatin (10) Gout: Plan: Chronic. Stable -Continue Allopurinol (11) Chronic respiratory failure with hypoxia: Plan: Chronic. Adequate oxygenation on room air -Continue Albuterol PRN -Continue Fluticasone -Continue [place] -Monitor respiratory status (12) Rheumatoid arthritis: Plan: Chronic -Continue Prednisone 5mg po daily History of Present Illness Chief Complaint: weakness Primary Care Provider: Josh Gaspar MD Xavi Bradford is a 76yo male well known to the medical service returning to the ER with complaint of weakness. Patient has been admitted multiple times to [facility] this year, most recently from 09/29/21 --> 10/06/21 with generalized weakness and falls. Patient was evaluated for possible custodial placement at that time and was deemed stable for discharge home. Of note, his Lasix was placed on hold on discharge due to concern for volume contraction. Patient reports progressive bilateral LE edema as well as SOB and orthopnea over the last week. He resumed his home Lasix 2 days ago but states that the swelling has not improved. He states that his legs are very swollen and heavy making it difficult to ambulate. He has been sleeping upright in his chair for the last several days due to orthopnea as well as weakness and difficulty ambulating to his bed. Patient had a ground level fall this afternoon. States that his legs simply gave out from under him. He did not hit his head or neck, no loss of consciousness. He has full recollection of the entire event. He reports some low oxygen levels at home 89-90% prior to arrival. Not appreciated on ER vital signs. Also with weight gain of 10# reported over the last 2 weeks. (Weight today = 124kg - was 105 kg on discharge 10/06/21 - must consider different scales, standing vs bed weight etc) Patient reports he has been eating well. Taking his medications as prescribed. No additional complaints - denies fever, chills, chest pain, palpitations, abdominal pain, nausea, vomiting. No melena, hematochezia, hematuria, bleeding or bruising reported ER Course: Lasix 20mg, Albuterol 3ml neb Allergies Allergy/AdvReac Type Severity Reaction Status Date / Time Iodinated Contrast Media Allergy Severe Anaphylaxis Verified 10/13/21 19:37 shellfish derived Allergy Severe Anaphylaxis Verified 10/13/21 19:37 tamsulosin [From Flomax] Allergy Intermediate Itching Verified 10/13/21 19:37 Tetanus Vaccines and Toxoid Allergy Unknown Unknown Verified 10/13/21 19:37 Home Medications Medication Instructions Recorded Confirmed Type atorvastatin 40 mg tablet 40 mg PO HS 05/28/20 10/13/21 History fexofenadine 180 mg tablet 180 mg PO QAM 02/11/21 10/13/21 History (Karlee Allergy) allopurinol 100 mg tablet 100 mg QPM 04/10/21 10/13/21 History finasteride 5 mg tablet 5 mg PO QAM 04/28/21 10/13/21 History carbidopa 25 mg-levodopa 100 mg 1 tab PO TID 05/24/21 10/13/21 History tablet levetiracetam 500 mg tablet 1,000 mg PO BID 06/30/21 10/13/21 History (Keppra) insulin aspart U-100 100 unit/mL See Rx Instructions .ROUTE 07/08/21 10/13/21 Rx (3 mL) subcutaneous pen (Novolog .COMPLEX #0 ml Flexpen U-100 Insulin aspart) sennosides 8.6 mg tablet (Senokot) 17.2 mg PO BID #0 tab 07/08/21 10/13/21 Rx topiramate 100 mg tablet (Topamax) 100 mg PO BID 30 Days #60 tab 07/12/21 10/13/21 Rx cholecalciferol (vitamin D3) 50 4,000 unit PO HS cap 07/14/21 10/13/21 History mcg (2,000 unit) capsule (Vitamin D3) prednisone 10 mg tablet 5 mg PO DAILY tab 07/14/21 10/13/21 History insulin NPH isoph U-100 human 100 20 unit SUBCUT DAILY 07/26/21 10/13/21 History unit/mL subcutaneous suspension (Novolin N NPH U-100 Insulin isophane) insulin glargine 100 unit/mL (3 20 unit SUBCUT BID 07/26/21 10/13/21 History mL) subcutaneous pen (Lantus Solostar U-100 Insulin) acetaminophen 325 mg tablet 650 mg PO Q4H PRN #30 tab 08/04/21 10/13/21 Rx aspirin 81 mg tablet,delayed 81 mg PO QAM #30 tab 08/04/21 10/13/21 Rx release gabapentin 300 mg capsule 300 mg PO BID 30 Days #60 cap 08/30/21 10/13/21 Rx fluticasone fur. 100 mcg-umeclid 1 inh INHALATION QAM #60 ea 09/06/21 10/13/21 Rx 62.5 mcg-vilant 25 mcg inhalat.powder (Trelegy Ellipta) albuterol sulfate 90 mcg/actuation 2 puff INHALATION Q4H PRN 09/27/21 10/13/21 History aerosol inhaler (Ventolin HFA) diclofenac sodium 1 % topical gel 2 g EXT QID PRN 09/27/21 10/13/21 History (Voltaren Arthritis Pain) warfarin 5 mg tablet See Rx Instructions .ROUTE .COMPLEX 09/27/21 10/13/21 History polyethylene glycol 3350 17 17 g PO BID PRN 10/04/21 10/13/21 History gram/dose oral powder (Miralax) Past Med/Surg History Medical History (Updated 10/14/21 @ 01:46 by Ana Dong DO) Acute left-sided muscle weakness Anemia CAD (coronary artery disease) Chronic dyspnea Chronic pulmonary aspiration Dehydration Diabetes Fall HLD (hyperlipidemia) Hypoxia Interstitial lung disease due to connective tissue disease Non-ST elevation WI (NSTEMI) Polymyositis Prostate cancer s/p XRT Rheumatoid arthritis Stroke-like symptom 12/2019, w/ blurry vision and dysarthria. mild R sided wkness. attending outpatient physical therapy w/ good improvement in strength (5+/5 strength of all 4 extremities as of 05/28/20) Syncope Thoracic ascending aortic aneurysm s/p repair Weakness Surgical History (Updated 10/14/21 @ 01:54 by Ana Dong DO) H/O hernia repair History of cholecystectomy History of fusion of cervical spine History of gastric bypass lap band History of heart artery stent History of lung biopsy 2019 History of partial nephrectomy Family History Mother , age 87 of pulmonary issues Rheumatoid arthritis Father , in his mid 80s of a stroke Stroke Other Coronary heart disease Social History Smoking Status: Never smoker Second Hand Exposure: No; Hx Alcohol Use: No Hx Substance Use: No Preferred Language: [place] Communication Ability: Effective Hearing Ability: Hard of Hearing Gate Watch Required: No Beliefs That Will Affect Care: None marital status: / Current Living Situation: Alone Current Living Situation Comment: lives alone in a one story house in [place] current occupational status: retired 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 How many Children do You have: 1 How many Children do You have Comment: son Other Information That Helps Us Care for You: No Feels Safe at Home: Yes Safety Concerns: Feels Safe At This Time Assistive Devices: Oxygen - at Night and Walker Review of Systems Review of Systems: All systems reviewed & are unremarkable except as noted in HPI & below Physical Exam Physical Exam: General: chronically ill appearing elderly male, NAD Skin: warm, dry, scattered bruising present on bilateral forearms, abrasion on left elbow with dressing in place c/d/i HEENT: NC/AT, PERRL, EOMI, anicteric sclera, conjunctiva without injection, external ear normal to inspection and nontender, nares patent, moist mucus membranes, dentition intact, no oropharyngeal lesions, neck supple, trachea midline, no LAD, no thyromegaly, no JVD Heart: +S1/S2, regular, +mid-systolic click corresponding to patient's mechanical heart valve Lungs: equal air entry bilaterally, +bibasilar rales, no rhonchi/wheezes Abd: +BS, soft, NT, mild distention, no masses/organomegaly/ascites Ext: warm, 2+ pulses in UE/LE bilaterally, no clubbing/cyanosis, 3+ edema bilateral LE to knees Neuro: nonfocal, patient AA&O x 4, speech intact, no facial droop, moving all extremities on command with equal strength 5/5 Results & Data Results & Data ([facility]) Vital Signs (Past 12 Hours) Vital Signs Temp Pulse Pulse Resp BP BP Pulse Ox 10/13/21 20:33 79 22 126/64 92 10/13/21 19:19 85 93 10/13/21 18:55 36.5 C 98 H 18 121/81 96 10/13/21 18:33 95 H 24 126/70 95 Laboratory Results Laboratory Results WBC 4.25 K/uL (4.8-10.8) L 10/13/21 19:18 RBC 4.15 M/uL (4.7-6.1) L 10/13/21 19:18 Hgb 11.7 g/dL (14.0-18.0) L 10/13/21 19:18 Hct 36.3 % (42-52) L 10/13/21 19:18 MCV 87.5 fL (80-100) 10/13/21 19:18 MCH 28.2 pg (25-34) 10/13/21 19:18 MCHC 32.2 g/dL (32-36) 10/13/21 19:18 RDW Std Deviation 50.5 fL (36.4-46.3) H 10/13/21 19:18 RDW Coeff of Lianne 15.7 % (11.5-14.5) H 10/13/21 19:18 Plt Count 183 K/uL (130-400) 10/13/21 19:18 MPV 9.8 fL (7.4-10.4) 10/13/21 19:18 Immature Gran % (Auto) 1.2 % 10/13/21 19:18 Neut % (Auto) 62.2 % 10/13/21 19:18 Lymph % (Auto) 24.5 % 10/13/21 19:18 Moffat % (Auto) 6.4 % 10/13/21 19:18 Eos % (Auto) 5.2 % 10/13/21 19:18 Baso % (Auto) 0.5 % 10/13/21 19:18 Neut # (Auto) 2.65 K/uL (1.4-6.5) 10/13/21 19:18 Lymph # (Auto) 1.04 K/uL (1.2-3.4) L 10/13/21 19:18 Moffat # (Auto) 0.27 K/uL (0.11-0.59) 10/13/21 19:18 Eos # (Auto) 0.22 K/uL (0-0.5) 10/13/21 19:18 Baso # (Auto) 0.02 K/uL (0-0.2) 10/13/21 19:18 Immature Gran # (Auto) 0.05 K/uL (0.00-0.02) H 10/13/21 19:18 PT 62.3 Seconds (9.0-12.0) H 10/13/21 19:18 INR 6.5 (0.9-1.1) H* 10/13/21 19:18 Sodium 138 mmol/L (136-145) 10/13/21 19:18 Potassium 3.5 mmol/L (3.5-5.1) 10/13/21 19:18 Chloride 108 mmol/L (98-107) H 10/13/21 19:18 Carbon Dioxide 20 mmol/L (21-32) L 10/13/21 19:18 Anion Gap 10 (3-11) 10/13/21 19:18 BUN 18 mg/dl (6-23) 10/13/21 19:18 Creatinine 1.26 mg/dl (0.6-1.4) 10/13/21 19:18 Est Cr Clr Drug Dosing Not Reportable 10/13/21 19:18 Est GFR ( Amer) 63.8 ml/min 10/13/21 19:18 Est GFR (Non-Af Amer) 55.0 ml/min 10/13/21 19:18 BUN/Creatinine Ratio 14.3 (10-20) 10/13/21 19:18 Glucose 166 mg/dl (70-99(Fasting)) H 10/13/21 19:18 POC Glucose 177 mg/dl (70-99) H 10/14/21 00:14 Calcium 9.2 mg/dl (8.5-10.1) 10/13/21 19:18 Phosphorus 3.1 mg/dl (2.5-4.9) 10/13/21 19:18 Magnesium 1.7 mg/dl (1.7-2.4) 10/13/21 19:18 Total Bilirubin 0.7 mg/dl (0.2-1.0) 10/13/21 19:18 AST 21 U/L (13-39) 10/13/21 19:18 ALT 6 U/L (7-52) L 10/13/21 19:18 Alkaline Phosphatase 63 U/L (34-104) 10/13/21 19:18 Troponin I High Sens 10.9 pg/ml (0-20) D 10/13/21 19:18 B-Natriuretic Peptide 41 pg/ml (0-100) 10/13/21 19:18 Total Protein 6.4 gm/dl (6.0-8.3) 10/13/21 19:18 Albumin 3.8 gm/dl (3.4-5.0) 10/13/21 19:18 Globulin 2.6 gm/dl (2.5-4.0) 10/13/21 19:18 Albumin/Globulin Ratio 1.5 (0.9-2) 10/13/21 19:18 Lipase 17 U/L (11-82) 10/13/21 19:18 SARS-CoV-2 (PCR) NEGATIVE (Negative) 10/13/21 22:10 Influenza Type A (PCR) Negative (Neg) 10/13/21 22:10 Influenza Type B (PCR) Negative (Neg) 10/13/21 22:10 RSV (RT-PCR) Negative (Neg) 10/13/21 22:10 Impressions Chest X-Ray 10/13/21 19:19 XR chest 1V portable CLINICAL HISTORY: Atypical chest pain TECHNIQUE: Single frontal radiograph of the chest was obtained. Comparison: Comparison is made to chest radiograph 10/03/2021 FINDINGS: Median sternotomy wires are unchanged. Cardiomegaly is noted. Atelectasis noted at the left lung base. No evidence of pleural effusion or pneumothorax. IMPRESSION: No acute chest disease. ACT 112: Negative or not required by law. Electronically signed by: Russell Sifuentes M.D. 10/13/2021 7:50 PM PG Care Time/CCT Total # of Minutes Spent Total Time Spent with Patient: Total time spent is greater than 50% in coordination of care (as documented) at patient's floor/unit and/or counseling patient: Coding Level of Care Code INT OBSERVATION CARE 70M LVL 3 Diagnoses History of seizures Z87.898 Generalized weakness R53.1 CAD (coronary artery disease) I25.10 Coronary Disease-Associated Artery/Lesion type: [place] artery [place] vs. 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
--- NOTE | 2021-10-13 22:59 | Emergency Department Note ---
Impression & Plan Shortness of breath, Weakness, Supratherapeutic INR, Hypervolemia ED Provider Note NAME: OSBALDO AGUILAR AGE: 76 SEX: M ARRIVES VIA: Walk-In INFORMANT: Patient ED PROVIDER(S): Tyrell Díaz MD CHIEF COMPLAINT: Shortness of breath, weakness. PLAN: Disposition: Admit MEDICAL DECISION MAKING: The patient is a pleasant 76-year-old gentleman with a past medical history of chronic respiratory failure with hypoxia, interstitial lung disease, parkinson ism, afib and mechanical aortic valve on warfarin, ckd who presents to the emergency department from home with evaluation of worsening shortness of breath over the past several days. He department care doctor and referred to the emergency department yesterday the patient further adds that he has been having increasing weakness where he is able Beiler is able to walk even with his walker. He reports he has been taken off of his Lasix after his last admission where they thought he was dehydrated. He reports since then he has had increasing fluid retention with swelling of his legs. He denies any fevers, chills, cough, congestion, vomiting or diarrhea. Patient ports he did have a fall due to his weakness today where he had to lower himself to the ground but denies any head strike. He was able to get himself up but again reports he is concerned about his weakness and living alone. On arrival the patient is chronically ill-appearing but no distress, afebrile stable vital signs. He has 2+ bilateral extremity pitting edema. Lungs with scant intermittent wheeze otherwise clear. EKG without overt acute ischemia. Chest x-ray negative for acute cardiopulmonary process. WBC 4.2k, similar to prior. H/H 11.7/36.3 similar to prior. Platelets within normal limits. INR is 6.5 in the setting of being on warfarin for mechanical valve. Chemistry without significant metabolic acidosis. Electrolytes and LFTs without significant abnormality. High-sensitivity troponin 10.9, within normal limits. BNP 41, within normal limits. Lipase not elevated. Patient was ordered for IV Lasix due to bilateral lower extremity edema. He was additionally given DuoNeb in the setting of his lung disease. We did discuss the patient stable evaluation and plan for close outpatient follow-up. However the patient did express concern that he is too weak and worries he may fall again. Thus, we did agree to refer the patient for admission. Case was discussed with Dr. Iker ARNOLD hospitalist, who will evaluate the patient for admission. Triage Nursing notes reviewed and agree them. Prior medical records reviewed Vital Signs: reviewed and remarkable for no significant abnormalities Differential diagnosis: Infection, dehydration, metabolic abnormality, hypo/hyperglycemia, electrolyte disturbance, anemia, hypoxia, cardiac sources, intracerebral event, toxicologic, neurologic, as well as other pathologies. ER treatment provided: See below. Diagnostics interpreted by me: ECG: Sinus rhythm, 94 bpm, PACs, no overt ST elevation or depression, QTC 462, QRS 82. Cardiac Monitoring: An order for continuous cardiac monitoring was placed and demonstrated sinus rhythm, 94 bpm, PACs. Laboratory studies: See below Imaging studies: See below Consultation(s): Dr. Dong, FRANCY hospitalist. HPI: The patient is a pleasant 76-year-old gentleman with a past medical history of chronic respiratory failure with hypoxia, interstitial lung disease, parkinsonism, afib and mechanical aortic valve on warfarin, ckd who presents to the emergency department from home with evaluation of worsening shortness of breath over the past several days. He department care doctor and referred to the emergency department yesterday the patient further adds that he has been having increasing weakness where he is able Beiler is able to walk even with his walker. He reports he has been taken off of his Lasix after his last admission where they thought he was dehydrated. He reports since then he has had increasing fluid retention with swelling of his legs. He denies any fevers, chills, cough, congestion, vomiting or diarrhea. Patient ports he did have a fall due to his weakness today where he had to lower himself to the ground but denies any head strike. He was able to get himself up but again reports he is concerned about his weakness and living alone. ROS: See above HPI for pertinent positives & negatives. A total of 10 systems reviewed and were otherwise negative. VITALS:See Below PHYSICAL EXAMINATION: GENERAL: Awake, alert, chronically ill-appearing, in no distress HENT: Normocephalic, atraumatic. Oropharynx unremarkable. EYES: Normal conjunctiva. Sclera non-icteric. NECK: Supple. No nuchal rigidity. FROM. No JVD. RESPIRATORY: Scant intermittent wheeze otherwise clear. CARDIAC: Regular rate, normal rhythm. Extremities warm and well perfused. Pulses equal. ABDOMEN: Soft, non-distended. No tenderness to palpation. No rebound or guarding. No masses. RECTAL: Deferred. MUSCULOSKELETAL: Chest examination reveals no tenderness. The back is symmetrical on inspection without obvious abnormality. There is no CVA tenderness to palpation. No joint edema. LOWER EXTREMITIES: Calves are equal size bilaterally and non-tender. 2+ BLE pi tting edema. No discoloration. NEURO: Normal sensorium. No sensory or motor deficits noted. SKIN: No rash or jaundice noted. Tyrell Díaz MD Past Med/Surg History Medical History (Updated 10/14/21 @ 03:59 by Tyrell Díaz MD) Acute left-sided muscle weakness Anemia CAD (coronary artery disease) Chronic dyspnea Chronic pulmonary aspiration Dehydration Diabetes Fall HLD (hyperlipidemia) Hypoxia Interstitial lung disease due to connective tissue disease Non-ST elevation [place] (NSTEMI) Polymyositis Prostate cancer s/p XRT Rheumatoid arthritis Stroke-like symptom 12/2019, w/ blurry vision and dysarthria. mild R sided wkness. attending outpatient physical therapy w/ good improvement in strength (5+/5 strength of all 4 extremities as of 05/28/20) Syncope Thoracic ascending aortic aneurysm s/p repair Weakness Surgical History (Updated 10/14/21 @ 01:54 by Ana Dong DO) H/O hernia repair History of cholecystectomy History of fusion of cervical spine History of gastric bypass lap band History of heart artery stent History of lung biopsy 2019 History of partial nephrectomy Family History Mother , age 87 of pulmonary issues Rheumatoid arthritis Father , in his mid 80s of a stroke Stroke Other Coronary heart disease Social History Smoking Status: Never smoker Second Hand Exposure: No; Hx Alcohol Use: No Hx Substance Use: No Preferred Language: Nauruan Communication Ability: Effective Hearing Ability: Hard of Hearing Atomic Spectroscopist Required: No Beliefs That Will Affect Care: None marital status: / Current Living Situation: Alone Current Living Situation Comment: lives alone in a one story house in [place] current occupational status: retired 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 How many Children do You have: 1 How many Children do You have Comment: son Other Information That Helps Us Care for You: No Feels Safe at Home: Yes Safety Concerns: Feels Safe At This Time Assistive Devices: Oxygen - at Night and Walker Allergies Allergies Allergy/AdvReac Type Severity Reaction Status Date / Time Iodinated Contrast Media Allergy Severe Anaphylaxis Verified 10/13/21 19:37 shellfish derived Allergy Severe Anaphylaxis Verified 10/13/21 19:37 tamsulosin [From Flomax] Allergy Intermediate Itching Verified 10/13/21 19:37 Tetanus Vaccines and Toxoid Allergy Unknown Unknown Verified 10/13/21 19:37 Home Meds Home Medications Medication Instructions Recorded Confirmed atorvastatin 40 mg tablet 40 mg PO HS 05/28/20 10/13/21 fexofenadine 180 mg tablet 180 mg PO QAM 02/11/21 10/13/21 (Karlee Allergy) allopurinol 100 mg tablet 100 mg QPM 04/10/21 10/13/21 finasteride 5 mg tablet 5 mg PO QAM 04/28/21 10/13/21 carbidopa 25 mg-levodopa 100 mg 1 tab PO TID 05/24/21 10/13/21 tablet levetiracetam 500 mg tablet 1,000 mg PO BID 06/30/21 10/13/21 (Keppra) cholecalciferol (vitamin D3) 50 4,000 unit PO HS cap 07/14/21 10/13/21 mcg (2,000 unit) capsule (Vitamin D3) prednisone 10 mg tablet 5 mg PO DAILY tab 07/14/21 10/13/21 insulin NPH isoph U-100 human 100 20 unit SUBCUT DAILY 07/26/21 10/13/21 unit/mL subcutaneous suspension (Novolin N NPH U-100 Insulin isophane) insulin glargine 100 unit/mL (3 20 unit SUBCUT BID 07/26/21 10/13/21 mL) subcutaneous pen (Lantus Solostar U-100 Insulin) albuterol sulfate 90 mcg/actuation 2 puff INHALATION Q4H PRN 09/27/21 10/13/21 aerosol inhaler (Ventolin HFA) diclofenac sodium 1 % topical gel 2 g EXT QID PRN 09/27/21 10/13/21 (Voltaren Arthritis Pain) warfarin 5 mg tablet See Rx Instructions .ROUTE .COMPLEX 09/27/21 10/13/21 polyethylene glycol 3350 17 17 g PO BID PRN 10/04/21 10/13/21 gram/dose oral powder (Miralax) Previous Rx's Medication Instructions Recorded insulin aspart U-100 100 unit/mL See Rx Instructions .ROUTE 07/08/21 (3 mL) subcutaneous pen (Novolog .COMPLEX #0 ml Flexpen U-100 Insulin aspart) sennosides 8.6 mg tablet (Senokot) 17.2 mg PO BID #0 tab 07/08/21 topiramate 100 mg tablet (Topamax) 100 mg PO BID 30 Days #60 tab 07/12/21 acetaminophen 325 mg tablet 650 mg PO Q4H PRN #30 tab 08/04/21 aspirin 81 mg tablet,delayed 81 mg PO QAM #30 tab 08/04/21 release gabapentin 300 mg capsule 300 mg PO BID 30 Days #60 cap 08/30/21 fluticasone fur. 100 mcg-umeclid 1 inh INHALATION QAM #60 ea 09/06/21 62.5 mcg-vilant 25 mcg inhalat.powder (Trelegy Ellipta) Results & Data (ED) Vital Signs Vital Signs - 24 hr 10/13/21 18:33 10/13/21 18:55 10/13/21 19:19 Temperature 36.5 C Temperature Source Temporal Artery Scan Pulse Rate 98 H 85 Pulse Rate [Right Finger] 95 H Respiratory Rate 24 18 Respiratory Effort / Characteristics Spontaneous Labored Non-Labored Spontaneous Respiratory Depth Shallow Normal Respiratory Pattern Tachypnea Blood Pressure 121/81 Blood Pressure [Right Arm] 126/70 Blood Pressure Mean 94 Blood Pressure Mean [Right Arm] 88 Pulse Oximetry 95 96 93 Oxygen Delivery Method Room Air Room Air Room Air Sepsis Recent Fever Within 48 Hours No Sepsis New/Unexplained Change in Mental Status No Sepsis Action Taken by Nursing No Action Required 10/13/21 20:33 Temperature Temperature Source Pulse Rate Pulse Rate [Right Finger] 79 Respiratory Rate 22 Respiratory Effort / Characteristics Respiratory Depth Respiratory Pattern Blood Pressure Blood Pressure [Right Arm] 126/64 Blood Pressure Mean Blood Pressure Mean [Right Arm] 84 Pulse Oximetry 92 Oxygen Delivery Method Room Air Sepsis Recent Fever Within 48 Hours Sepsis New/Unexplained Change in Mental Status Sepsis Action Taken by Nursing Laboratory Data Attestation: I reviewed the patient's lab results. Result diagrams: 10/13/21 19:18 10/13/21 19:18 Lab Results 10/13/21 10/13/21 10/13/21 Range/Units 19:18 19:18 19:18 WBC 4.25 L (4.8-10.8) K/uL RBC 4.15 L (4.7-6.1) M/uL Hgb 11.7 L (14.0-18.0) g/dL Hct 36.3 L (42-52) % MCV 87.5 (80-100) fL MCH 28.2 (25-34) pg MCHC 32.2 (32-36) g/dL RDW Std Deviation 50.5 H (36.4-46.3) fL RDW Coeff of Lianne 15.7 H (11.5-14.5) % Plt Count 183 (130-400) K/uL MPV 9.8 (7.4-10.4) fL Immature Gran % (Auto) 1.2 % Neut % (Auto) 62.2 % Lymph % (Auto) 24.5 % [place] % (Auto) 6.4 % Eos % (Auto) 5.2 % Baso % (Auto) 0.5 % Neut # (Auto) 2.65 (1.4-6.5) K/uL Lymph # (Auto) 1.04 L (1.2-3.4) K/uL [place] # (Auto) 0.27 (0.11-0.59) K/uL Eos # (Auto) 0.22 (0-0.5) K/uL Baso # (Auto) 0.02 (0-0.2) K/uL Immature Gran # (Auto) 0.05 H (0.00-0.02) K/uL PT 62.3 H (9.0-12.0) Seconds INR 6.5 H* (0.9-1.1) Sodium 138 (136-145) mmol/L Potassium 3.5 (3.5-5.1) mmol/L Chloride 108 H (98-107) mmol/L Carbon Dioxide 20 L (21-32) mmol/L Anion Gap 10 (3-11) BUN 18 (6-23) mg/dl Creatinine 1.26 (0.6-1.4) mg/dl Est Cr Clr Drug Dosing Not Reportable Est GFR ( Amer) 63.8 ml/min Est GFR (Non-Af Amer) 55.0 ml/min BUN/Creatinine Ratio 14.3 (10-20) Glucose 166 H (70-99(Fasting)) mg/dl Calcium 9.2 (8.5-10.1) mg/dl Phosphorus 3.1 (2.5-4.9) mg/dl Magnesium 1.7 (1.7-2.4) mg/dl Total Bilirubin 0.7 (0.2-1.0) mg/dl AST 21 (13-39) U/L ALT 6 L (7-52) U/L Alkaline Phosphatase 63 (34-104) U/L Troponin I High Sens 10.9 D (0-20) pg/ml B-Natriuretic Peptide (0-100) pg/ml Total Protein 6.4 (6.0-8.3) gm/dl Albumin 3.8 (3.4-5.0) gm/dl Globulin 2.6 (2.5-4.0) gm/dl Albumin/Globulin Ratio 1.5 (0.9-2) Lipase 17 (11-82) U/L SARS-CoV-2 (PCR) (Negative) Influenza Type A (PCR) (Neg) Influenza Type B (PCR) (Neg) RSV (RT-PCR) (Neg) 10/13/21 10/13/21 Range/Units 19:18 22:10 WBC (4.8-10.8) K/uL RBC (4.7-6.1) M/uL Hgb (14.0-18.0) g/dL Hct (42-52) % MCV (80-100) fL MCH (25-34) pg MCHC (32-36) g/dL RDW Std Deviation (36.4-46.3) fL RDW Coeff of Lianne (11.5-14.5) % Plt Count (130-400) K/uL MPV (7.4-10.4) fL Immature Gran % (Auto) % Neut % (Auto) % Lymph % (Auto) % [place] % (Auto) % Eos % (Auto) % Baso % (Auto) % Neut # (Auto) (1.4-6.5) K/uL Lymph # (Auto) (1.2-3.4) K/uL [place] # (Auto) (0.11-0.59) K/uL Eos # (Auto) (0-0.5) K/uL Baso # (Auto) (0-0.2) K/uL Immature Gran # (Auto) (0.00-0.02) K/uL PT (9.0-12.0) Seconds INR (0.9-1.1) Sodium (136-145) mmol/L Potassium (3.5-5.1) mmol/L Chloride (98-107) mmol/L Carbon Dioxide (21-32) mmol/L Anion Gap (3-11) BUN (6-23) mg/dl Creatinine (0.6-1.4) mg/dl Est Cr Clr Drug Dosing Est GFR ( Amer) ml/min Est GFR (Non-Af Amer) ml/min BUN/Creatinine Ratio (10-20) Glucose (70-99(Fasting)) mg/dl Calcium (8.5-10.1) mg/dl Phosphorus (2.5-4.9) mg/dl Magnesium (1.7-2.4) mg/dl Total Bilirubin (0.2-1.0) mg/dl AST (13-39) U/L ALT (7-52) U/L Alkaline Phosphatase (34-104) U/L Troponin I High Sens (0-20) pg/ml B-Natriuretic Peptide 41 (0-100) pg/ml Total Protein (6.0-8.3) gm/dl Albumin (3.4-5.0) gm/dl Globulin (2.5-4.0) gm/dl Albumin/Globulin Ratio (0.9-2) Lipase (11-82) U/L SARS-CoV-2 (PCR) NEGATIVE (Negative) Influenza Type A (PCR) Negative (Neg) Influenza Type B (PCR) Negative (Neg) RSV (RT-PCR) Negative (Neg) Administered Medications Insulin Aspart (Insulin Aspart Per Unit) 0 units SC ACHS KIRSTEN Stop: 11/13/21 00:44 Last Admin: 10/14/21 00:44 Dose: 1 units Documented by: [id number] Cosigned by: [id number] Discontinued Medications Albuterol (Albut/Ipratrop 3mg/0.5mg Neb 3 Ml Vial) 3 ml NEB NOW STA; Protocol Stop: 10/13/21 21:25 Last Admin: 10/13/21 21:41 Dose: 3 ml Documented by: [id number] Furosemide (Furosemide 40 Mg/4 Ml Vial) 20 mg IV ONE ONE Stop: 10/13/21 22:09 Last Admin: 10/13/21 22:22 Dose: 20 mg Documented by: [id number] Imaging Data Radiologist's Impression: Chest X-Ray 10/13/21 19:19 XR chest 1V portable CLINICAL HISTORY: Atypical chest pain TECHNIQUE: Single frontal radiograph of the chest was obtained. Comparison: Comparison is made to chest radiograph 10/03/2021 FINDINGS: Median sternotomy wires are unchanged. Cardiomegaly is noted. Atelectasis noted at the left lung base. No evidence of pleural effusion or pneumothorax. IMPRESSION: No acute chest disease. ACT 112: Negative or not required by law. Electronically signed by: Russell Sifuentes M.D. 10/13/2021 7:50 PM Discharge Plan Visit Data Chief Complaint: Shortness of Breath/Dyspnea Stated Complaint: SOB ED Provider: Tyrell Díaz Discharge Problem: Shortness of breath, Weakness, Supratherapeutic INR, Hypervolemia Patient Disposition: Admitted As Inpatient Discharge Instructions Interventions: ED Discharge Assessment Last Done: 10/14/21 00:43 Discharge Problem: Hypervolemia Qualifiers: Hypervolemia type: unspecified Qualified Code(s): E87.70 - Fluid overload, unspecified
[2021-10-13 23:17] LABS: Influenza A virus by PCR Negative (Neg); Influenza B virus by PCR Negative (Neg); RSV by PCR Negative (Neg); SARS CoV2 RNA(COVID-19) InHosp NEGATIVE (Negative)
[2021-10-14] MEDS ORDERED: GLUCOSE 40% GEL 15 GM TUBE PO PRN (00:13)
[2021-10-14] MEDS ORDERED: GLUCOSE 10 TABS/TUBE PO PRN (00:13)
[2021-10-14] MEDS ORDERED: DEXTROSE 50% 50 ML SYRINGE IV PRN (00:13)
[2021-10-14] MEDS ORDERED: POLYETHYLENE (MIRALAX) 17 GM PACK PO PRN (00:13)
[2021-10-14] MEDS ORDERED: ALBUTEROL HFA 8 GM INHALER INH PRN (00:13)
[2021-10-14] MEDS ORDERED: GLUCAGON FOR INJ 1 MG VIAL SQ PRN (00:13)
[2021-10-14] MEDS ORDERED: CARBOHYDRATES FOR HYPOGLYCEMIA PO PRN (00:13)
[2021-10-14] MEDS ORDERED: Nursing to Pharmacy Communication SCH (00:30)
[2021-10-14] MEDS: INSULIN ASPART PER UNIT SC SCH ×5 (00:44→21:05)
[2021-10-14 07:53] LABS: Hematocrit (blood only) 35.3 % (42-52); Hemoglobin 11.4 g/dL (14.0-18.0); Mean Corpuscular Hemoglobin 28.7 pg (25-34); Mean Corpuscular Hgb Conc 32.3 g/dL (32-36); Mean Corpuscular Volume 88.9 fL (80-100); Mean Platelet Volume 9.6 fL (7.4-10.4); Platelet Count 169 K/uL (130-400); RDW Coefficient of Variation 15.6 % (11.5-14.5); RDW Standard Deviation 50.2 fL (36.4-46.3); Red Blood Count 3.97 M/uL (4.7-6.1); White Blood Count 4.11 K/uL (4.8-10.8)
[2021-10-14 08:14] LABS: INR 5.4 (0.9-1.1); Prothrombin Time 52.4 Seconds (9.0-12.0)
[2021-10-14 08:18] LABS: Basophils # (auto) 0.02 K/uL (0-0.2); Basophils % (auto) 0.5 %; Eosinophils # (auto) 0.22 K/uL (0-0.5); Eosinophils % (auto) 5.4 %; Immature Granulocytes # (auto) 0.07 K/uL (0.00-0.02); Immature Granulocytes % (auto) 1.7 %; Lymphocytes # (auto) 0.97 K/uL (1.2-3.4); Lymphocytes % (auto) 23.6 %; Monocytes # (auto) 0.24 K/uL (0.11-0.59); Monocytes % (auto) 5.8 %; Neutrophils # (auto) 2.59 K/uL (1.4-6.5)
[2021-10-14] MEDS: FLUTICASONE FUROATE 100MCG 14 PUFFS/INHALER INH SCH (08:30)
[2021-10-14] MEDS: UMECLIDINIUM/VILANTEROL 62.5/25MCG 7 PUFFS/INHALER INH SCH (08:31)
[2021-10-14] MEDS: CARBIDOPA/LEVODOPA 25/100MG TAB PO SCH ×3 (08:32→21:07)
[2021-10-14] MEDS: FEXOFENADINE HCL 180 MG TAB PO SCH (08:33)
[2021-10-14] MEDS: levETIRAcetam 500 MG TAB PO SCH ×2 (08:33→21:08)
[2021-10-14] MEDS: predniSONE 5 MG TAB PO SCH (08:33)
[2021-10-14] MEDS: ASPIRIN 81 MG ECTAB PO SCH (08:33)
[2021-10-14] MEDS: TOPIRAMATE 100 MG TAB PO SCH ×2 (08:33→21:07)
[2021-10-14] MEDS: GABAPENTIN 300 MG CAP PO SCH ×2 (08:33→21:07)
[2021-10-14] MEDS: FUROSEMIDE INJ 20 MG/2 ML VIAL IV SCH (08:33)
[2021-10-14] MEDS: FINASTERIDE 5 MG TAB PO SCH (08:33)
[2021-10-14 08:47] LABS: BUN Creatinine Ratio 13.8 (10-20); Calcium 8.9 mg/dl (8.5-10.1); Creatinine Clr Calc Pharmacy 68.7 ml/min; Est GFR (African American) 65.7 ml/min; Est GFR (Non-African American) 56.7 ml/min; Magnesium 1.8 mg/dl (1.7-2.4); Phosphorus 3.4 mg/dl (2.5-4.9); Potassium 3.5 mmol/L (3.5-5.1)
[2021-10-14] MEDS ORDERED: NON-FORMULARY MEDICATION (Fluticasone-Umeclidin-Vilanter [Trelegy Ellipta] 100-62.5-25 mcg INH SCH (09:00)
[2021-10-14] MEDS: INSULIN GLARGINE SOLOSTAR 100 UNITS/ML 3 ML PEN SQ SCH ×2 (09:09→21:04)
--- NOTE | 2021-10-14 10:08 | Hospitalist Progress Note ---
Date of Service October 14, 2021 Assessment & Plan (1) Weakness: Plan: 76 yo M complex PMH including chronic respiratory failure with hypoxia on 2L nightly, CAD s/p stent, rheumatoid arthrits, DM2, CKD3a, interstitial lung disease, Parkinson's disease, mechanical aortic valve replacement s/p aortic dissection from ascending AA, AF on warfarin, multiple TIAs and previous CVA in 2020, multiple falls, ambulates with walker at baseline. Multiple admissions with most recent 09/29 to 10/06 for weakness and fall. Admitted on 10/13 with progressive edema, generalized weakness and ambulatory dysfunction Generalized weakness Plan: -Likely multifactorial- acute hypervolemia in setting of deconditioning / age, multiple falls and chronic illnesses -Will need to mitigate fall risk and improve functional status -PT/OT evaluations pending -Case management following -Pt apparently would like to avoid extended home health services, rehab or SNF -Pt currently has home health aide visiting MWF and home PT for past 2 months, would prefer to keep this as is -Consider adjusting sedating home medications- gabapentin 300 mg BID, Keppra 1000 mg BID Acute on chronic fluid overload Plan: -No known history of previous CHF though with chronic fluid overload- on Lasix 20 mg daily at home -Last echocardiogram 06/2021- EF > 70% with +severe concentric LVH, no wall motion abnormalities -Most likely secondary to discontinuation of home Lasix on previous discharge -Diuresis ongoing -105 kg on 10/06 124 kg on 10/13 admission, dry weight appears to be ~105 kg -1L UOP with 1 unmeasured void- given pt's report of urinary retention- consider placing Wetzel catheter if this continues -Continue Lasix 20 mg IV daily for diuresis -KCl supplementation while on diuresis -Maintain K > 4, Mg > 2 -Strict I's and O's, daily standing weights -Trend BMP Paroxysmal atrial fibrillation -Currently in sinus rhythm, rate-controlled -No home rate or rhythm control medications -Anticoagulated with warfarin- home regimen is 7.5 mg daily except for 5 mg / -Currently holding warfarin due to supratherapeutic INR 6.5 on admission. No bleeding concern at present -Trend INR daily -INR goal 2.5-3.5 Mechanical aortic valve -Previous history of ascending aortic aneurysm with dissection s/p repair -Holding home Coumadin as above due to supratherapeutic INR -INR goal 2.5-3.5 due to valve Chronic respiratory failure with hypoxia in setting of interstitial lung disease: Plan: Chronic. Adequate oxygenation on room air at present. Home O2 2L nightly -CXR on admission- left base atelectasis, no pneumonia or pulmonary edema. Similar to 10/03 CXR -Continue Anoro and fluticasone, albuterol PRN Constipation -History of chronic constipation, recent loose BMs likely represented overflow diarrhea -KUB 10/14- moderate stool burden noted -Suspect this may be contributing partly to his nausea in addition to fluid overload -Starting Miralax BID today History of seizures: Plan: Chronic -Continue Keppra 1000mg po BID -Continue Topamax 100mg po BID History of CAD s/p NSTEMI Plan: Chronic. Stable. Patient denies chest pain -Continue ASA 81mg po daily -Atorvastatin 40mg po qHS -Cardiac catheterization 04/2021- patent left main stent without restenosis, mild CAD T2DM with peripheral neuropathy Plan: Chronic. Most recent A1C 7.6% in 09/2021 -Continue Lantus 20u BID -ISS -Goal blood sugar 100 - 140 -Continue Neurontin 300 mg BID at present HLD Plan: Chronic -Continue atorvastatin 40 mg daily Gout: Plan: Chronic. Stable -Continue allopurinol Rheumatoid arthritis: Plan: Chronic -Continue prednisone 5mg po daily FENGI: Low salt, heart healthy diet Code status: Full DVT ppx: Holding home Coumadin Isolation: None Dispo: Telemetry (2) Supratherapeutic INR: (3) Edema: (4) Chronic respiratory failure with hypoxia: (5) Diabetes: (6) CAD (coronary artery disease): (7) PAF (paroxysmal atrial fibrillation): (8) Chronic kidney disease, stage 3a: (9) Aortic valve replaced: Admission and Anticipated Discharge Date Admission Date: October 13, 2021 Supervising Physician Co-Signing Physician Notes Patient seen and examined with PGY-1 Dr. Gonzalez. Agree with history, exam findings, assessment and plan of care as outlined. In brief, Mr. Bradford is a 76 year old male with progressive edema, generalized weakness and ambulatory dysfunction admitted with ground level fall. Recently discharged from [facility] on 10/06. At which time lasix was stopped due to concerns for volume contraction. Fall secondary to generalized weakness. VS and nursing notes reviewed. Elderly male. Nontoxic appearing. Heart with regular rate. Mechanical click appreciated. +2 pitting edema to the bilateral knees. Lungs are clear to auscultation today. No crackles or wheeze. Labs and imaging reviewed. * Generalized weakness. Secondary to deconditioning and fluid overload. PT/OT eval. * Acute on chronic fluid overload. Discontinued lasix prior to admission leading to positive fluid balance. Diurese with lasix 20mg IV daily. Monitor I/Os, daily weights. Watch K and Cr. Dry weight is ~100kg. * Supratherapeutic INR. INR 6.5 on admission. No bleeding. Holding Coumadin. * Aortic valve replacementmechanical valve. Goal INR 2.5-3.5. * Chronic aspiration. Aspiration precautions. * CAD. Stable. Continue home ASA and Atorvastatin 40mg. * DM with neuropathy. Glucose control with 20u Lantau BID and ssi, neurontin for neuropathy. * Chronic respiratory failure with hypoxia. Currently on room air. Continue Albuterol, fluticasone, Anoro. * RA. Prednisone 5mg. Dispo: pending clinical improvement. Subjective No acute events overnight. Pt does report some mild improvement of his dyspnea but reports his leg swelling has not significantly changed. Still short of breath with extended discussion. Does complain of some abdominal discomfort and nausea- states he had a watery BM yesterday and 2 days prior to that but deals with chronic constipation Review of Systems Review of Systems: Per subjective Physical Exam Physical Exam: General: chronically ill appearing elderly male, sitting up in chair, +conversational dyspnea Skin: warm, dry, scattered bruising present on bilateral forearms HEENT: Anicteric sclera, conjunctiva without injection, nares patent, moist mucus membranes, dentition intact, no oropharyngeal lesions, neck supple, trachea midline, no JVD b/l Heart: Normal rate and rhythm, normal S1/S2, +mid-systolic click murmur noted Lungs: CTAB, faint intermittent wheeze, no crackles appreciated Abd: Soft, slightly distended with mild tenderness diffusely, no fluid wave Ext: warm, 2+ pulses in distal LE bilaterally, no clubbing/cyanosis, 2+ pitting edema up to knees b/l with R > L Neuro: AOx3, no focal motor or sensory deficits, 5/5 strength of b/l LE and UE Skin: no rash or erythema noted across extremities or abdomen MSK: slightly reduced bulk of b/l UE and LE Gait: symmetric, balanced Results & Data Results & Data ([facility]) Vital Signs (Past 12 Hours) Vital Signs Temp Pulse Resp BP Pulse Ox 10/14/21 07:37 36.6 C 83 18 119/79 95 10/13/21 23:50 36.7 C 88 16 120/75 97 10/13/21 23:31 88 20 106/57 L 92 Resident Activity Tracking Resident Involvement: Resident Care Provided Care Provided: Adult Hospital Medicine (1) Diabetes Diabetes mellitus complication detail: with polyneuropathy Diabetes mellitus complication status: with neurologic complications Diabetes mellitus fdc insulin use: with termite helper use Diabetes mellitus type: type 2 Qualified Code(s): E11.42 - Type 2 diabetes mellitus with diabetic polyneuropathy; Z79.4 - exterminator (current) use of insulin (2) CAD (coronary artery disease) Associated angina: without angina Coronary Disease-Associated Artery/Lesion type: [place] artery [place] vs. transplanted heart: [place] heart Qualified Code(s): I25.10 - Atherosclerotic heart disease of [place] coronary artery without angina pectoris
--- NOTE | 2021-10-14 10:31 | XRay Report ---
XR KUB/Abdomen 1 view CLINICAL HISTORY: abdominal pain TECHNIQUE: 1 view of the abdomen was obtained. Comparison: Comparison is made to abdomen radiograph 07/08/2021 FINDINGS: Posterior fixation hardware is seen. Abdominal catheter is unchanged in position. Degenerative change s are seen in the visualized skeleton. The bowel gas pattern is nonobstructive. A moderate amount of stool is noted within the large bowel. IMPRESSION: Nonobstructive bowel gas pattern. ACT 112: Negative or not required by law. Electronically signed by: Russell Sifuentes M.D. 10/14/2021 10:30 AM
[2021-10-14] MEDS: ATORVASTATIN 40 MG TAB PO SCH (21:07)
[2021-10-14] MEDS: allopurinoL 100 MG TAB PO SCH (21:08)
[2021-10-14] MEDS: POLYETHYLENE (MIRALAX) 17 GM PACK PO SCH (21:09)
[2021-10-15 07:46] LABS: Hematocrit (blood only) 32.7 % (42-52); Hemoglobin 10.3 g/dL (14.0-18.0); Mean Corpuscular Hemoglobin 27.7 pg (25-34); Mean Corpuscular Hgb Conc 31.5 g/dL (32-36); Mean Corpuscular Volume 87.9 fL (80-100); Mean Platelet Volume 9.6 fL (7.4-10.4); Platelet Count 156 K/uL (130-400); RDW Coefficient of Variation 15.5 % (11.5-14.5); RDW Standard Deviation 49.5 fL (36.4-46.3); Red Blood Count 3.72 M/uL (4.7-6.1); White Blood Count 3.61 K/uL (4.8-10.8)
[2021-10-15 08:07] LABS: BUN Creatinine Ratio 15.8 (10-20); Calcium 8.5 mg/dl (8.5-10.1); Creatinine Clr Calc Pharmacy 67.8 ml/min; Est GFR (Non-African American) 62.1 ml/min; Magnesium 1.8 mg/dl (1.7-2.4); Potassium 3.6 mmol/L (3.5-5.1)
[2021-10-15 09:04] LABS: INR 4.1 (0.9-1.1); Prothrombin Time 40.1 Seconds (9.0-12.0)
[2021-10-15] MEDS: INSULIN ASPART PER UNIT SC SCH ×4 (09:08→20:52)
[2021-10-15] MEDS: FEXOFENADINE HCL 180 MG TAB PO SCH (09:10)
[2021-10-15] MEDS: CARBIDOPA/LEVODOPA 25/100MG TAB PO SCH ×3 (09:10→20:53)
[2021-10-15] MEDS: ASPIRIN 81 MG ECTAB PO SCH (09:10)
[2021-10-15] MEDS: FINASTERIDE 5 MG TAB PO SCH (09:11)
[2021-10-15] MEDS: FUROSEMIDE INJ 20 MG/2 ML VIAL IV SCH (09:12)
[2021-10-15] MEDS: FLUTICASONE FUROATE 100MCG 14 PUFFS/INHALER INH SCH (09:13)
[2021-10-15] MEDS: GABAPENTIN 300 MG CAP PO SCH ×2 (09:13→20:53)
[2021-10-15] MEDS: INSULIN GLARGINE SOLOSTAR 100 UNITS/ML 3 ML PEN SQ SCH ×2 (09:14→20:48)
[2021-10-15] MEDS: POLYETHYLENE (MIRALAX) 17 GM PACK PO SCH ×2 (09:15→20:54)
[2021-10-15] MEDS: levETIRAcetam 500 MG TAB PO SCH ×2 (09:15→20:53)
[2021-10-15] MEDS: TOPIRAMATE 100 MG TAB PO SCH ×2 (09:16→20:54)
[2021-10-15] MEDS: predniSONE 5 MG TAB PO SCH (09:16)
[2021-10-15] MEDS: UMECLIDINIUM/VILANTEROL 62.5/25MCG 7 PUFFS/INHALER INH SCH (09:16)
[2021-10-15] MEDS: POTASSIUM CHLORIDE CRTAB 20 MEQ TABCR PO SCH (09:48)
[2021-10-15] MEDS ORDERED: ONDANSETRON INJ 2 MG/ML 2 ML VIAL IV PRN (16:43)
--- NOTE | 2021-10-15 16:58 | Hospitalist Progress Note ---
Date of Service October 15, 2021 Assessment & Plan (1) Weakness: Plan: 76 yo M complex PMH including chronic respiratory failure with hypoxia on 2L nightly, CAD s/p stent, rheumatoid arthrits, DM2, CKD3a, interstitial lung disease, Parkinson's disease, mechanical aortic valve replacement s/p aortic dissection from ascending AA, AF on warfarin, multiple TIAs and previous CVA in 2020, multiple falls, ambulates with walker at baseline. Multiple admissions with most recent 09/29 to 10/06 for weakness and fall. Admitted on 10/13 with progressive edema, generalized weakness and ambulatory dysfunction Generalized weakness -Likely multifactorial- acute hypervolemia in setting of deconditioning 2/2 age, multiple falls and chronic illnesses -Will need to mitigate fall risk and improve functional status -PT/OT evaluations pending -Case management following -Pt apparently would like to avoid extended home health services, rehab or SNF -Pt currently has home health aide visiting MWF and home PT for past 2 months, would prefer to keep this as is -Consider adjusting sedating home medications- gabapentin 300 mg BID, Keppra 1000 mg BID Acute on chronic fluid overload -No known history of previous CHF though with chronic fluid overload- on Lasix 20 mg daily at home -Last echocardiogram 06/2021- EF > 70% with +severe concentric LVH, no wall motion abnormalities -Most likely secondary to discontinuation of home Lasix on previous discharge -Diuresis ongoing -105 kg on 10/06 124 kg on 10/13 admission, dry weight appears to be ~105 kg -Has had about 1203mL output over past 24 hours, patient endorsed ~400-500mL output today. -Switched Lasix 20mg IV to 20mg PO for 10/16. -KCl supplementation while on diuresis -Maintain K > 4, Mg > 2 -Strict I's and O's, daily standing weights -Trend BMP Paroxysmal atrial fibrillation -Currently in sinus rhythm, rate-controlled -No home rate or rhythm control medications -Anticoagulated with warfarin- home regimen 42.5mg weekly - 5mg MTRF, 7.5mg W,Sat,Sun -Currently holding warfarin due to supratherapeutic INR 6.5 on admission. No bleeding concern at present -Trend INR daily -Can restart scheduled warfarin based on INR tomorrow. -INR goal 2.5-3.5 Mechanical aortic valve -Previous history of ascending aortic aneurysm with dissection s/p repair -Holding home Coumadin as above due to supratherapeutic INR -INR goal 2.5-3.5 due to valve Chronic respiratory failure with hypoxia in setting of interstitial lung disease: Chronic. Adequate oxygenation on room air at present. Home O2 2L nightly -CXR on admission- left base atelectasis, no pneumonia or pulmonary edema. Similar to 10/03 CXR -Continue Anoro and fluticasone, albuterol PRN Constipation -History of chronic constipation, recent loose BMs likely represented overflow diarrhea -KUB 10/14- moderate stool burden noted -Suspect this may be contributing partly to his nausea in addition to fluid ove rload -Starting Miralax BID today History of seizures: Chronic -Continue Keppra 1000mg po BID -Continue Topamax 100mg po BID History of CAD s/p NSTEMI Chronic. Stable. Patient denies chest pain -Continue ASA 81mg po daily -Atorvastatin 40mg po qHS -Cardiac catheterization 04/2021- patent left main stent without restenosis, mild CAD T2DM with peripheral neuropathy Chronic. Most recent A1C 7.6% in 09/2021 -Glucose levels elevated in upper 100's-200's -Bumped Lantus to 23u BID -ISS -Goal blood sugar 100 - 140 -Continue Neurontin 300 mg BID at present HLD Chronic -Continue atorvastatin 40 mg daily Gout: Chronic. Stable -Continue allopurinol Rheumatoid arthritis: Chronic -Continue prednisone 5mg po daily FENGI: Low salt, heart healthy diet Code status: Full DVT ppx: Holding home Coumadin Isolation: None Dispo: Telemetry (2) Supratherapeutic INR: (3) Edema: (4) Chronic respiratory failure with hypoxia: (5) Diabetes: (6) CAD (coronary artery disease): (7) PAF (paroxysmal atrial fibrillation): (8) Chronic kidney disease, stage 3a: (9) Aortic valve replaced: Admission and Anticipated Discharge Date Admission Date: October 15, 2021 Supervising Physician Co-Signing Physician Notes Patient seen and examined with PGY-1 Dr. Thakkar. Agree with history, exam findings, assessment and plan of care as outlined. In brief, Mr. Bradford is a 76 year old male with progressive edema, generalized weakness and ambulatory dysfunction admitted with ground level fall. Recently discharged from [facility] on 10/06. At which time lasix was stopped due to concerns for volume contraction. Fall secondary to generalized weakness. Notes that his appetite has been down today, has been feeling a little bit queasy. No vomiting. He is worried about the hospital cost. He also notes that he has been taking his coumadin 7.5mg all days except Tuesdays and when he takes 5mg. He has 5mg, 7.5mg, and 10mg tabs at home. Review of the outpatient anticoagulation recommendations from his PCP were that he take 5mg MTThF and 7.5mg the other days after he had an elevated INR of 6. VS and nursing notes reviewed. Elderly male. Nontoxic appearing. Heart with regular rate. Mechanical click appreciated. +1 pitting edema to the mid-duavl on the right, trace edema on the left. Lungs are clear to auscultation today. No crackles or wheeze. Labs and imaging reviewed. 1. Generalized weakness. Secondary to deconditioning and fluid overload. PT/OT eval pending. 2. Acute on chronic fluid overload. Discontinued lasix prior to admission leading to positive fluid balance. Has diuresed well with IV lasix, will switch to PO lasix for tomorrow morning. Anticipate that he may be able to transition to PO lasix in the next day. Monitor I/Os, daily weights. Weight today 104.3kg. Watch K and Cr. Dry weight is ~100kg. Will need careful outpatient monitoring of daily weights to avoid readmission for fluid overload. 3. Supratherapeutic INR. INR 6.5 on admission, today INR 4.1. Holding Coumadin. 4. Aortic valve replacementmechanical valve. Goal INR 2.5-3.5. 5. Chronic aspiration. Aspiration precautions. 6. CAD. Stable. Continue home ASA and Atorvastatin 40mg. 7. DM with neuropathy. Glucose has been elevated. Increase lantus to 23u BID, continue with sliding scale, neurontin for neuropathy. 8. Chronic respiratory failure with hypoxia. Currently on room air. Continue Albuterol, fluticasone, Anoro. 9. RA. Prednisone 5mg. Dispo: pending clinical improvement. Subjective Patient seen at bedside today and feeling better than when he came in. Patient has been moving to and from the seat in his room throughout the day. Patient states he is a bit worried about being on observation since his insurance did not cover the last inpatient stay he had and it will not be covered if he is on observation. He does not want to take his inhaler home medications due to the cost if he has to pay out of pocket. He states he has had nausea throughout the day and hasn't eaten a whole lot - he would like zofran for nausea. Review of Systems Review of Systems: Per subjective Physical Exam Constitutional: WD/WN, vitals as above Eyes: PERRL, conjunctivae normal, anicteric sclerae Respiratory: normal respiratory effort, lungs clear to auscultation Cardiovascular: Rate/Rhythm: regular rate and regular rhythm Heart Sounds: normal S1 and normal S2 1+ pitting edema at R lower extremity, right lower extremity w/ mildly increased swelling compared to left lower extremity. Gastrointestinal (Abdomen): normal bowel sounds, soft, nontender, no hep atosplenomegaly Psychiatric: A+Ox3, euthymic affect Results & Data Results & Data ([facility]) Vital Signs (Past 12 Hours) Vital Signs Temp Pulse Resp BP Pulse Ox 10/15/21 15:50 36.6 C 68 16 114/67 91 10/15/21 07:51 36.5 C 63 18 105/63 93 Resident Activity Tracking Resident Involvement: Resident Care Provided Care Provided: Adult Hospital Medicine (1) Diabetes Diabetes mellitus complication detail: with polyneuropathy Diabetes mellitus complication status: with neurologic complications Diabetes mellitus assisted insulin use: with press tender long goods use Diabetes mellitus type: type 2 Qualified Code(s): E11.42 - Type 2 diabetes mellitus with diabetic polyneuropathy; Z79.4 - half-way (current) use of insulin (2) CAD (coronary artery disease) Associated angina: without angina Coronary Disease-Associated Artery/Lesion type: [place] artery [place] vs. transplanted heart: [place] heart Qualified C ode(s): I25.10 - Atherosclerotic heart disease of [place] coronary artery without angina pectoris
[2021-10-15] MEDS: allopurinoL 100 MG TAB PO SCH (20:54)
[2021-10-15] MEDS: ATORVASTATIN 40 MG TAB PO SCH (20:54)
[2021-10-16 08:33] LABS: INR 3.1 (0.9-1.1); Prothrombin Time 30.6 Seconds (9.0-12.0)
[2021-10-16 08:45] LABS: Calcium 8.7 mg/dl (8.5-10.1); Est GFR (African American) 77.7 ml/min; Est GFR (Non-African American) 67.1 ml/min; Potassium 3.6 mmol/L (3.5-5.1)
[2021-10-16] MEDS: TOPIRAMATE 100 MG TAB PO SCH ×2 (08:51→20:32)
[2021-10-16] MEDS: INSULIN GLARGINE SOLOSTAR 100 UNITS/ML 3 ML PEN SQ SCH ×2 (08:51→21:18)
[2021-10-16] MEDS: CARBIDOPA/LEVODOPA 25/100MG TAB PO SCH ×3 (08:51→20:31)
[2021-10-16] MEDS: levETIRAcetam 500 MG TAB PO SCH ×2 (08:52→20:32)
[2021-10-16] MEDS: FEXOFENADINE HCL 180 MG TAB PO SCH (08:52)
[2021-10-16] MEDS: FINASTERIDE 5 MG TAB PO SCH (08:52)
[2021-10-16] MEDS: GABAPENTIN 300 MG CAP PO SCH ×2 (08:52→20:31)
[2021-10-16] MEDS: ASPIRIN 81 MG ECTAB PO SCH (08:52)
[2021-10-16] MEDS: POTASSIUM CHLORIDE CRTAB 20 MEQ TABCR PO SCH (08:52)
[2021-10-16] MEDS: INSULIN ASPART PER UNIT SC SCH ×4 (08:52→21:18)
[2021-10-16] MEDS: POLYETHYLENE (MIRALAX) 17 GM PACK PO SCH ×2 (08:52→20:32)
[2021-10-16] MEDS: FUROSEMIDE 20 MG TAB PO SCH (08:53)
[2021-10-16] MEDS: FLUTICASONE FUROATE 100MCG 14 PUFFS/INHALER INH SCH (08:54)
[2021-10-16] MEDS: predniSONE 5 MG TAB PO SCH (08:54)
[2021-10-16] MEDS: UMECLIDINIUM/VILANTEROL 62.5/25MCG 7 PUFFS/INHALER INH SCH (08:54)
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
[2021-10-16] MEDS ORDERED: WARFARIN SOD 7.5 MG TAB PO SCH (16:00)
[2021-10-16] MEDS: ACETAMINOPHEN 325 MG TAB PO PRN (16:59)
[2021-10-16] MEDS: ATORVASTATIN 40 MG TAB PO SCH (20:31)
[2021-10-16] MEDS: allopurinoL 100 MG TAB PO SCH (20:31)
[2021-10-17] MEDS: ACETAMINOPHEN 325 MG TAB PO PRN (00:29)
--- NOTE | 2021-10-17 06:54 | Discharge Summary ---
Date of Service October 17, 2021 Admission HPI Per Admitting Provider Xavi Bradford is a 76yo male well known to the medical service returning to the ER with complaint of weakness. Patient has been admitted multiple times to [facility] this year, most recently from 09/29/21 --> 10/06/21 with generalized weakness and falls. Patient was evaluated for possible [place] [facility] placement at that time and was deemed stable for discharge home. Of note, his Lasix was placed on hold on discharge due to concern for volume contraction. Patient reports progressive bilateral LE edema as well as SOB and orthopnea over the last week. He resumed his home Lasix 2 days ago but states that the swelling has not improved. He states that his legs are very swollen and heavy making it difficult to ambulate. He has been sleeping upright in his chair for the last several days due to orthopnea as well as weakness and difficulty ambulating to his bed. Patient had a ground level fall this afternoon. States that his legs simply gave out from under him. He did not hit his head or neck, no loss of conscious ness. He has full recollection of the entire event. He reports some low oxygen levels at home 89-90% prior to arrival. Not appreciated on ER vital signs. Also with weight gain of 10# reported over the last 2 weeks. (Weight today = 124kg - was 105 kg on discharge 10/06/21 - must consider different scales, standing vs bed weight etc) Patient reports he has been eating well. Taking his medications as prescribed. No additional complaints - denies fever, chills, chest pain, palpitations, abdominal pain, nausea, vomiting. No melena, hematochezia, hematuria, bleeding or bruising reported ER Course: Lasix 20mg, Albuterol 3ml [facility] Admission Exam Per Admitting Provider General: chronically ill appearing elderly male, NAD Skin: warm, dry, scattered bruising present on bilateral forearms, abrasion on left elbow with dressing in place c/d/i HEENT: NC/AT, PERRL, EOMI, anicteric sclera, conjunctiva without injection, external ear normal to inspection and nontender, nares patent, moist mucus membranes, dentition intact, no oropharyngeal lesions, neck supple, trachea midline, no LAD, no thyromegaly, no JVD Heart: +S1/S2, regular, +mid-systolic click corresponding to patient's mechanical heart valve Lungs: equal air entry bilaterally, +bibasilar rales, no rhonchi/wheezes Abd: +BS, soft, NT, mild distention, no masses/organomegaly/ascites Ext: warm, 2+ pulses in UE/LE bilaterally, no clubbing/cyanosis, 3+ edema bilateral LE to knees Neuro: nonfocal, patient AA&O x 4, speech intact, no facial droop, moving all extremities on command with equal strength 5/5 Principal Diagnosis generalized weakness, peripheral edema Discharge Exam General: Grossly A&O. NAD. Cooperative. Sitting in chair comfortably. HEENT: Atraumatic, normocephalic. EOMI Pulm: Faint bibasilar insp crackles. Symmetrical chest rise. No respiratory distress. Cardiac: IIR. 2+ LE edema on right, 1+ on left; per patient R is usually worse than L. Abdominal: Nontender, nondistended, soft. Discharge Data Allergies Allergy/AdvReac Type Severity Reaction Status Date / Time Iodinated Contrast Media Allergy Severe Anaphylaxis Verified 10/13/21 19:37 shellfish derived Allergy Severe Anaphylaxis Verified 10/13/21 19:37 tamsulosin [From Flomax] Allergy Intermediate Itching Verified 10/13/21 19:37 Tetanus Vaccines and Toxoid Allergy Unknown Unknown Verified 10/13/21 19:37 Consultations 10/13/21 22:23 ED Decision to Admit Stat Ordered Studies Coagulation 10/17/21 Range/Units 07:59 PT 27.1 H (9.0-12.0) Seconds Comprehensive Metabolic Panel 10/17/21 Range/Units 07:59 Sodium 137 (136-145) mmol/L Potassium 3.6 (3.5-5.1) mmol/L Chloride 107 (98-107) mmol/L Carbon Dioxide 22 (21-32) mmol/L BUN 17 (6-23) mg/dl Creatinine 1.06 (0.6-1.4) mg/dl Glucose 189 H (70-99(Fasting)) mg/dl Calcium 9.1 (8.5-10.1) mg/dl Intake and Output 10/16/21 10/17/21 10/17/21 22:59 06:59 14:59 Intake Total 240 / 720 240 / 720 Output Total 300 / 1200 350 / 1200 Balance -60 / -480 -110 / -480 Intake: Oral 240 / 720 240 / 720 Output: Urine 300 / 1200 350 / 1200 Other: # Unmeasured Voids 1 1 Weight 100.2 kg Weight Measurement Method Standing Scale Patient Weight 10/18/21 06:59 Weight 100.2 kg Chest X-Ray 10/13/21 19:19 XR chest 1V portable CLINICAL HISTORY: Atypical chest pain TECHNIQUE: Single frontal radiograph of the chest was obtained. Comparison: Comparison is made to chest radiograph 10/03/2021 FINDINGS: Median sternotomy wires are unchanged. Cardiomegaly is noted. Atelectasis noted at the left lung base. No evidence of pleural effusion or pneumothorax. IMPRESSION: No acute chest disease. ACT 112: Negative or not required by law. Electronically signed by: Russell Sifuentes M.D. 10/13/2021 7:50 PM KUB X-Ray 10/14/21 09:02 XR KUB/Abdomen 1 view CLINICAL HISTORY: abdominal pain TECHNIQUE: 1 view of the abdomen was obtained. Comparison: Comparison is made to abdomen radiograph 07/08/2021 FINDINGS: Posterior fixation hardware is seen. Abdominal catheter is unchanged in position. Degenerative changes are seen in the visualized skeleton. The bowel gas pattern is nonobstructive. A moderate amount of stool is noted within the large bowel. IMPRESSION: Nonobstructive bowel gas pattern. ACT 112: Negative or not required by law. Electronically signed by: Russell Sifuentes M.D. 10/14/2021 10:30 AM Hospital Course (1) Weakness: 76 yo M complex PMH including chronic respiratory failure with hypoxia on 2L nightly, CAD s/p stent, rheumatoid arthritis, DM2, CKD3a, interstitial lung disease, Parkinson's disease, mechanical aortic valve replacement s/p aortic dissection from ascending AA, AF on warfarin, multiple TIAs and previous CVA in 2019, multiple falls, ambulates with walker at baseline. Multiple admissions with most recent 09/29 to 10/06 for weakness and fall. Admitted on 10/13 with progressive edema, generalized weakness and ambulatory dysfunction. Generalized weakness -Likely multifactorial- acute hypervolemia in setting of deconditioning 2/2 age, multiple falls and chronic illnesses -Consider adjusting sedating home medications- gabapentin 300 mg BID. Also on Keppra, but that is for hx of seizures. Acute on chronic fluid overload -No known history of previous CHF though with chronic fluid overload- on Lasix 20 mg daily at home. -Last echocardiogram 06/2021- EF > 70% with +severe concentric LVH, no wall motion abnormalities -Most likely secondary to discontinuation of home Lasix on previous discharge -S/p diuresis -105 kg on 10/06 day of previous hosp discharge 124 kg on 10/13 admission, 100.2 kg on current admission's discharge (10/17) -Net neg 3.2L this admission -Lasix 20mg daily PO upon discharge along w/ 20meq potassium. Close f/u w/ pcp. Recommended [facility] CHF clinic; patient declines at this time. -Recheck BMP in 1-2 weeks, replete potassium as needed Paroxysmal atrial fibrillation -Restarted Warfarin regimen at slightly lower dosing 5mg MTThF, 7.5mg SuWeSa. Goal INR 2.5-3.5 for mechanical valve Mechanical aortic valve -Previous history of ascending aortic aneurysm with dissection s/p repair -See above Chronic respiratory failure with hypoxia in setting of interstitial lung disease: Chronic. Adequate oxygenation on room air at present. Home O2 2L nightly -CXR on admission- left base atelectasis, no pneumonia or pulmonary edema. Similar to 10/03 CXR -Continue home regimen Constipation -KUB 10/14- moderate stool burden noted -Titrate miralax as needed. Senna. History of seizures: Chronic, Continue Keppra 1000mg po BID. Continue Topamax 100mg po BID History of CAD s/p NSTEMI Chronic. Stable. -Cardiac catheterization 04/2021- patent left main stent without restenosis, mild CAD T2DM with peripheral neuropathy Chronic. Most recent A1C 7.6% in 09/2021 - BSG to 200s this admission w/ occasional 300 - Lantus 25u BID + SSI this admission. Home regimen not adjusted upon discharge because did not recieve Novolin N during hospitalization. Encourage home BG log and adjustment if indicated. HLD Chronic, continue home regimen Gout: Chronic, continue home regimen Rheumatoid arthritis: Chronic, continue home regimen prednisone Diet, low Na, DM2 diet Patient was FULL code this admission. (2) Supratherapeutic INR: (3) Edema: (4) Chronic respiratory failure with hypoxia: (5) Diabetes: (6) CAD (coronary artery disease): (7) PAF (paroxysmal atrial fibrillation): (8) Chronic kidney disease, stage 3a: (9) Aortic valve replaced: Total Time Total Time Spent Total Time Spent (In Minutes): <30 Discharge Plan Discharge Items Patient Disposition: Home - Self-Care Reason For Visit: WEAKNESS Discharge Diagnosis: generalized weakness, peripheral edema Activity: Per Instructions section Non-emergency contact: Primary Care Provider Call non-emergency contact if: you have any medication questions and your pain is not controlled Follow-up/Referrals: Josh Gaspar MD [Primary Care Provider] - (hosp discharge follow up within 1 week ) Diet: Carb Consistent or DM2 and Low Sodium (2gm) Addtl Attending Provider Instructions: Hi Mr. Bradford, You were admitted to [facility] for weakness and leg swelling. You were successfully treated and will be discharged home. Consider referral to [facility] CHF clinic. We discussed this, but will hold off on this at the time being. You stated that you have close f/u w/ your PCP and will obtain daily weights on a scale at home and have pcp adjust your lasix regimen if needed. We discussed following a low sodium diet. I have included some handouts on leg swelling and fluid retention. I have added potassium supplementation because the Lasix can lower the potassium. warfarin dosing. Goal INR 2.5-3.5 for mechanical aortic valve. Your INR was too high when you arrived at the hospital. Your warfarin was restarted. The regimen will be changed to 5mg MTThF, 7.5mg SuWeSa. This is a slight decreased compared to your previous 5mg 2 days per week and 7.5mg 5 day per week. diabetes: Follow closely with your PCP and keep a log of your blood sugars at home. Your sugars in the hospital were higher than the goal and hit almost 300 a few times, but here, you were given Lantus and Aspart without Novolin N, so it is difficult to make a direct comparison of your insulin needs. Your home regimen will not be changed upon discharge home, but your PCP may need to adjust. constipation: you are currently taking senna and twice a day miralax. You may temporarily increase the miralax to 3 times a day. You may also try dulcolax suppository. Follow up with your PCP within 1 week of leaving the hospital. If you do not hear from the scheduler conveyor in a few day, call to schedule the appointment yourself. If you develop any new or worsening symptoms including fever, chills, sweats, chest pain, chest pressure, difficulty breathing, uncontrolled nausea/vomiting, rash, wheezing, passing out or nearly passing out, bleeding, black/bloody bowel movements, or other new or concerning symptoms please call your primary care physician, or call 911 for re-evaluation in the emergency department if you are very concerned. Pending Studies at Discharge: No Stand-Alone Forms: My [facility], Smoking Cessation Medications and DC Order Prescriptions: New warfarin 5 mg Tablet 5 mg PO MoTuThFr@1600 30 Days Qty: 18 RF: 0 warfarin [Jantoven] 7.5 mg Tablet 7.5 mg PO SuWeSa@1600 30 Days Qty: 13 RF: 0 potassium chloride 20 mEq Tablet,Er Particles/Crystals 20 meq PO QAM 30 Days Qty: 30 RF: 0 furosemide 20 mg Tablet 20 mg PO QAM 30 Days Qty: 30 RF: 0 Continued topiramate [Topamax] 100 mg tablet 100 mg PO BID 30 Days Qty: 60 RF: 5 gabapentin 300 mg capsule 300 mg PO BID 30 Days Qty: 60 RF: 8 Trelegy Ellipta 100-62.5-25 mcg blister with device 1 inh inhalation QAM Qty: 60 RF: 5 prednisone 10 mg tablet 5 mg PO DAILY RF: 0 cholecalciferol (vitamin D3) [Vitamin D3] 50 mcg (2,000 unit) capsule 4,000 unit PO HS RF: 0 atorvastatin 40 mg tablet 40 mg PO HS RF: 0 fexofenadine [Karlee Allergy] 180 mg Tablet 180 mg PO QAM RF: 0 finasteride 5 mg tablet 5 mg PO QAM RF: 0 acetaminophen 325 mg Tablet 650 mg PO Q4H PRN (Reason: pain) Qty: 30 RF: 0 aspirin 81 mg Tablet,Delayed Release (Dr/Ec) 81 mg PO QAM Qty: 30 RF: 0 albuterol sulfate [Ventolin HFA] 90 mcg/actuation HFA aerosol inhaler 2 puff INHALATION Q4H PRN (Reason: Shortness Of Breath Or Wheezing) RF: 0 diclofenac sodium [Voltaren Arthritis Pain] 1 % gel 2 g EXT QID PRN (Reason: Pain) RF: 0 allopurinol 100 mg tablet 100 mg QPM RF: 0 carbidopa-levodopa 25-100 mg tablet 1 tab PO TID RF: 0 levetiracetam [Keppra] 500 mg tablet 1,000 mg PO BID RF: 0 sennosides [Senokot] 8.6 mg tablet 17.2 mg PO BID Qty: 0 RF: 0 insulin aspart U-100 [Novolog Flexpen U-100 Insulin] 100 unit/mL (3 mL) insulin pen See Rx Instructions .ROUTE .COMPLEX Qty: 0 RF: 0 insulin glargine [Lantus Solostar U-100 Insulin] 100 unit/mL (3 mL) insulin pen 20 unit SUBCUT BID RF: 0 Novolin N NPH U-100 Insulin 100 unit/mL Suspension 20 unit SUBCUT DAILY RF: 0 polyethylene glycol 3350 [Miralax] 17 gram/dose powder 17 g PO BID PRN (Reason: Constipation) RF: 0 Discontinued warfarin 5 mg tablet See Rx Instructions .ROUTE .COMPLEX RF: 0 Discharge Orders: Discharge Order (Routine); Ordered 10/17/21 Ordered By: Hiram Sen/Other Patient Handouts: Heart Failure Flare Up Signs, Coping with Heart Failure, Heart Failure Dc, ED Leg Swelling in Both Legs Admission Data Admit Date/Time: 10/15/21 16:39 Attending Provider: Yo Rosales Admit Provider: Ana Dong Primary Care Provider: Josh Gaspar Other Providers: Ana Dong Supervising Physician Co-Signing Physician Notes Resident Physician Supervision Note: I interviewed and examined the patient. Discussed with Dr. Bray and agree with findings and plan as documented in the note. Any exceptions or clarifications are listed here: None Pt is back to his baseline, he feels that he is much better since resumption of lasix, will agree to watch his body weight and follow up with pcp and maybe heart failure clinic His examination shows a started cardiac exam irregular with a click consistent with his aortic valve replacement. His lungs are clear his extremities are only with trace edema Patient stable to be discharged on outpatient daily diuretic therapy with surveillance of body weight Than 30 minutes to see this patient discussed with the residents agree discharge summary Documented By: Yo Rosales MD Resident Activity Tracking Resident Involvement: Resident Care Provided Care Provided: Adult Hospital Medicine
[2021-10-17 08:33] LABS: INR 2.7 (0.9-1.1); Prothrombin Time 27.1 Seconds (9.0-12.0)
[2021-10-17 08:41] LABS: Calcium 9.1 mg/dl (8.5-10.1); Creatinine Clr Calc Pharmacy 71.5 ml/min; Est GFR (African American) 78.6 ml/min; Est GFR (Non-African American) 67.8 ml/min; Potassium 3.6 mmol/L (3.5-5.1)
[2021-10-17] MEDS: POLYETHYLENE (MIRALAX) 17 GM PACK PO SCH (08:47)
--- NOTE | 2021-10-17 08:53 | Electrocardiogram Report ---
Test Reason : Blood Pressure : / mmHG Vent. Rate : 094 BPM Atrial Rate : 094 BPM P-R Int : 156 ms QRS Dur : 082 ms QT Int : 370 ms P-R-T Axes : 015 006 099 degrees QTc Int : 462 ms Sinus rhythm with Premature atrial complexes Possible Left atrial enlargement Abnormal ECG When compared with ECG of 03-OCT-2021 21:44, Premature atrial complexes are now Present Confirmed by Cody Soto [id number]) on 10/14/2021 11:30:09 AM Referred By: REFERRED SELF Confirmed By:Wyatt Soto
[2021-10-17] MEDS: INSULIN ASPART PER UNIT SC SCH ×3 (08:57→17:53)
[2021-10-17] MEDS: INSULIN GLARGINE SOLOSTAR 100 UNITS/ML 3 ML PEN SQ SCH (08:58)
[2021-10-17] MEDS: POTASSIUM CHLORIDE CRTAB 20 MEQ TABCR PO SCH (09:04)
[2021-10-17] MEDS: TOPIRAMATE 100 MG TAB PO SCH (09:04)
[2021-10-17] MEDS: FEXOFENADINE HCL 180 MG TAB PO SCH (09:04)
[2021-10-17] MEDS: levETIRAcetam 500 MG TAB PO SCH (09:04)
[2021-10-17] MEDS: UMECLIDINIUM/VILANTEROL 62.5/25MCG 7 PUFFS/INHALER INH SCH (09:05)
[2021-10-17] MEDS: FINASTERIDE 5 MG TAB PO SCH (09:05)
[2021-10-17] MEDS: ASPIRIN 81 MG ECTAB PO SCH (09:05)
[2021-10-17] MEDS: FUROSEMIDE 20 MG TAB PO SCH (09:05)
[2021-10-17] MEDS: predniSONE 5 MG TAB PO SCH (09:05)
[2021-10-17] MEDS: FLUTICASONE FUROATE 100MCG 14 PUFFS/INHALER INH SCH (09:05)
[2021-10-17] MEDS: CARBIDOPA/LEVODOPA 25/100MG TAB PO SCH ×2 (09:05→14:30)
[2021-10-17] MEDS: GABAPENTIN 300 MG CAP PO SCH (09:05)
[2021-10-17] MEDS ORDERED: WARFARIN SOD 5 MG TAB PO SCH (16:00)
--- NOTE | 2021-10-17 17:12 | Billing Data ---
Date of Service October 17, 2021 Coding Level of Care Code D/C DAY MANAGEMENT >30 MINS
--- NOTE | 2021-10-26 07:09 | Billing Data ---
Date of Service October 26, 2021 Coding Level of Care Code D/C DAY MANAGEMENT <30 MINS
== END 2021-10-17 18:14 | disposition home or self-care (01) | DRG 641 ==
LOC: ED 18:33 → 3W 18:33 → SUATTDRO 22:57 → 3W 10-14 00:43 → SUATTDRO 10-15 16:39

== ENCOUNTER 2021-12-06 21:02 | Inpatient (IN) ==
--- NOTE | 2021-12-06 21:11 | Emergency Department Note ---
Impression & Plan Chronic respiratory failure with hypoxia, Shortness of breath, Weakness ED Provider Note NAME: OSBALDO AGUILAR AGE: 76 SEX: M : 1945 ARRIVES VIA: Ambulance INFORMANT: [Patient][, ] ED PROVIDER(S): [Wilmer Mayo MD] Chief Complaint: Shortness of breath, hypoxia, cough HPI: Patient presents due to concern for shortness of breath in the setting of recent admission for bilateral pneumonia and finished levaquin approximately 1 week ago. The patient had been seen by his primary care doctor Dr. Melo on Sunday and was told that it may take some time for recovery. Over the weekend the patient has had even worsening shortness of breath as well as exertional dyspnea. The patient does feel short of breath at baseline and is becoming increasingly confused and felt unsafe at home as he was not sure which medications to take and when. Patient denies any falls or trauma. The patient does have worsening shortness of breath with exertion. Patient does take Lasix for history of some chronic lower extremity edema and is always worse than the right but this seems relatively unchanged. The patient was checking his pulse oximeter at home over the last several days and was noting it to decrease and today noticed that it 84% with increasing work of breathing. Patient does wear oxygen only at nighttime but not chronically. Patient does have nonproductive cough. Patient was diagnosed with interstitial lung disease and is to follow-up with Dr. Gomez and is pending a CT as an outpatient. ROS: See HPI for pertinent positives and negatives. A total of 10 systems were reviewed and otherwise negative. Past medical history: See below Surgical history: See below Social history: See below Physical Exam: GENERAL: NAD, [wearing a mask,] non-toxic. Wearing glasses, hard of hearing, nasal cannula in place. EYE EXAM: Normal conjunctiva. PERRL, no anisocoria and EOM's grossly intact w/o pain. NECK: Supple, no nuchal rigidity, no adenopathy, non-tender. No signs of meningismus. FROM of the neck with good chin to chest and neck extension. No stridor. LUNGS: Scant coarse sounds in the left chest with associated expiratory wheezing, no tachypnea. HEART: NSR, no MRG. ABDOMEN: Abdomen soft, non-tender, normo-active bowel sounds, no masses, no rebound or guarding. BACK: No CVA TTP. SKIN: No rashes and no bruising. UPPER EXTREMITIES: Upper extremities are grossly normal. LOWER EXTREMITIES: Grossly normal, right greater than left lower extremity edema without calf pain. NEURO EXAM: A&O x3, cranial nerves II-XII grossly intact, normal speech, moves all 4 extremities. Differential diagnoses: Reactive airway disease, pneumonia, pneumothorax, COPD, CHF, infections, cardiac ischemia, pulmonary embolism, musculoskeletal, gastrointestinal, as well as other pathologies. Course: Patient was seen and evaluated the bedside. Full history physical exam was performed. EKG interpreted by me Sinus, rate of 65, normal intervals, normal axis. No obvious ST elevations. Imaging Studies: See Below Cardiac monitoring: An order was placed for continuous cardiac monitoring. The monitor shows a rate of 67 with sinus rhythm. MDM: Patient presented due to concern for shortness of breath. Patient states that he had exertional dyspnea. Patient denies any fevers or chills or chest pains. The patient was recently diagnosed with pneumonia. The patient was given a neb treatment as the patient had recently had an associated pneumonia and did have some slight wheezing and that was more pronounced in the left chest. Blood work shows leukopenia with associated anemia 8.8. Patient's platelet count is slightly low at 121. INR therapeutic. Gas was ordered which does not show any hypercarbia. Patient does have elevated BNP and patient's weight is up to the patient was ordered as Lasix. I did speak the on-call hospitalist as the patient was hypoxic at home as well as upon presenting to the emergency department. I did speak to Dr. Bell and the patient was admitted to the medicine service. [id number] Hemoccult was pending at the time of admission patient was hemodynamically stable. Critical Care: I have personally spent 35 minutes of critical care time in direct management of this patient. This includes bedside care, interpretation of diagnostic studies, and testing, discussion with consultants, patient, and family members, and other require inpatient management activities. This 35 minutes is in excess of all separately billable procedures. Past Med/Surg History Medical History Acute dehydration Acute left-sided muscle weakness Anemia CAD (coronary artery disease) Cerebrovascular accident Current use of intermediate frame tender anticoagulation Dehydration Depression Diabetes Dizziness AZUL (dyspnea on exertion) Elevated troponin Fall Fall Fall Generalized weakness Headache Hypervolemia Hypoxia Lower back pain Nasal congestion Non-ST elevation VA (NSTEMI) Non-sustained ventricular tachycardia Retrosternal chest pain Rheumatoid arthritis Stroke-like symptom 12/2019, w/ blurry vision and dysarthria. mild R sided wkness. attending outpatient physical therapy w/ good improvement in strength (5+/5 strength of all 4 extremities as of 05/28/20) Syncope Weakness Surgical History H/O hernia repair History of cholecystectomy History of fusion of cervical spine History of heart artery stent History of lung biopsy 2019 History of partial nephrectomy Family History Mother , age 87 of pulmonary issues Rheumatoid arthritis Father , in his mid 80s of a stroke Stroke Other Coronary heart disease Social History Smoking Status: Never smoker Second Hand Exposure: No; Hx Alcohol Use: No Hx Substance Use: No Preferred Language: Vietnamese Communication Ability: Effective Hearing Ability: Hard of Hearing Lock Up Worker Required: No Beliefs That Will Affect Care: None marital status: / Current Living Situation: Alone Current Living Situation Comment: lives alone in a one story house in [place] current occupational status: retired 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 How many Children do You have: 2 How many Children do You have Comment: son Feels Safe at Home: Yes Assistive Devices: Walker Allergies Allergies Allergy/AdvReac Type Severity Reaction Status Date / Time Iodinated Contrast Media Allergy Severe Anaphylaxis Verified 12/06/21 23:01 shellfish derived Allergy Severe Anaphylaxis Verified 12/06/21 23:01 tamsulosin [From Flomax] Allergy Intermediate Itching Verified 12/06/21 23:01 Tetanus Vaccines and Toxoid Allergy Unknown Unknown Verified 12/06/21 23:01 Home Meds Home Medications Medication Instructions Recorded Confirmed atorvastatin 40 mg tablet 40 mg PO HS 05/28/20 12/06/21 fexofenadine 180 mg tablet 180 mg PO QAM 02/11/21 12/06/21 (Karlee Allergy) allopurinol 100 mg tablet 100 mg QPM 04/10/21 12/06/21 finasteride 5 mg tablet 5 mg PO QAM 04/28/21 12/06/21 levetiracetam 500 mg tablet 1,000 mg PO BID 06/30/21 12/06/21 (Keppra) cholecalciferol (vitamin D3) 50 4,000 unit PO HS 07/14/21 12/06/21 mcg (2,000 unit) capsule (Vitamin D3) prednisone 10 mg tablet 10 mg PO QAM 07/14/21 12/06/21 insulin glargine 100 unit/mL (3 20 unit subcut BID 07/26/21 12/06/21 mL) subcutaneous pen (Lantus Solostar U-100 Insulin) albuterol sulfate 90 mcg/actuation 2 puff inhalation Q4H PRN 09/27/21 12/06/21 aerosol inhaler (Ventolin HFA) Shortness Of Breath Or Wheezing polyethylene glycol 3350 17 17 g PO BID PRN Constipation 10/04/21 12/06/21 gram/dose oral powder (Miralax) carbidopa 25 mg-levodopa 100 mg 1 tab PO TID 11/24/21 12/06/21 tablet dulaglutide 1.5 mg/0.5 mL 1.5 mg subcut WK 11/24/21 12/06/21 subcutaneous pen injector (Trulicity) furosemide 20 mg tablet 20 mg PO QAM 11/24/21 12/06/21 gabapentin 300 mg capsule 300 mg PO HS 11/24/21 12/06/21 gabapentin 300 mg capsule 600 mg PO QAM 11/24/21 12/06/21 magnesium 250 mg tablet 250 mg PO QAM 11/24/21 12/06/21 potassium chloride 20 mEq 20 meq PO QAM 11/24/21 12/06/21 tablet,extended release(part/cryst) (Klor-Con M) sennosides 8.6 mg tablet (Senokot) 17.2 mg PO QAM 11/24/21 12/06/21 warfarin 5 mg tablet 5 mg PO 5XWK 11/24/21 12/06/21 warfarin 7.5 mg tablet 7.5 mg PO 2XWK 11/24/21 12/06/21 Previous Rx's Medication Instructions Recorded insulin aspart U-100 100 unit/mL See Rx Instructions .Route 07/08/21 (3 mL) subcutaneous pen (Novolog .COMPLEX #0 mL Flexpen U-100 Insulin aspart) topiramate 100 mg tablet (Topamax) 100 mg PO BID 30 days #60 tabs 07/12/21 acetaminophen 325 mg tablet 650 mg PO Q4H PRN pain #30 tabs 08/04/21 aspirin 81 mg tablet,delayed 81 mg PO QAM #30 tabs 08/04/21 release fluticasone fur. 100 mcg-umeclid 1 inh inhalation QAM #60 ea 09/06/21 62.5 mcg-vilant 25 mcg inhalat.powder (Trelegy Ellipta) Results & Data (ED) Home Medications Current Medication List: was personally reviewed by me Laboratory Data Attestation: I reviewed the patient's lab results. Result diagrams: 12/09/21 06:23 12/09/21 06:23 Lab Results 12/06/21 12/06/21 12/06/21 Range/Units 21:55 21:55 22:05 WBC 3.65 L (4.8-10.8) K/ul RBC 3.19 L (4.63-6.08) M/uL Hgb 8.8 L (14.0-18.0) g/dl Hct 28.8 L (40.1-51.0) % MCV 90.3 (80.0-100.0) fL MCH 27.6 (25.0-34.0) pg MCHC 30.6 L (32.0-36.0) g/dL RDW Std Deviation 48.1 H (36.4-46.3) fL RDW Coeff of Lianne 14.6 H (11.5-14.5) % Plt Count 121 L (130-400) K/uL MPV 10.2 (9.4-12.4) fL Immature Gran % (Auto) 0.8 % Neut % (Auto) 74.5 % Lymph % (Auto) 17.8 % Cherry % (Auto) 4.7 % Eos % (Auto) 1.9 % Baso % (Auto) 0.3 % Neut # (Auto) 2.72 (1.4-6.5) K/uL Lymph # (Auto) 0.65 L (1.2-3.4) K/uL Cherry # (Auto) 0.17 L (0.24-0.82) K/uL Eos # (Auto) 0.07 (0-0.50) K/uL Baso # (Auto) 0.01 (0-0.2) K/uL Immature Gran # (Auto) 0.03 H (0.00-0.02) K/uL PT 21.7 H (9.0-12.0) Seconds INR 2.1 H (0.9-1.1) VBG pH (7.36-7.41) VBG pCO2 (38-50) mmHg VBG pO2 mmHg VBG HCO3 mmol/L VBG O2 Saturation % VBG Base Excess mEq/L Sodium 140 (136-145) mmol/L Potassium 3.6 (3.5-5.1) mmol/L Chloride 110 H (98-107) mmol/L Carbon Dioxide 23 (21-32) mmol/L Anion Gap 7 (3-11) BUN 28 H (6-23) mg/dl Creatinine 1.25 (0.6-1.4) mg/dl Est Cr Clr Drug Dosing 62.8 ml/min Est GFR ( Amer) 64.4 ml/min Est GFR (Non-Af Amer) 55.6 ml/min BUN/Creatinine Ratio 22.4 H (10-20) Glucose 230 H (70-99(Fasting)) mg/dl Calcium 8.9 (8.5-10.1) mg/dl Magnesium 2.0 (1.7-2.4) mg/dl Total Bilirubin 0.4 (0.2-1.0) mg/dl AST 19 (13-39) U/L ALT 6 L (7-52) U/L Alkaline Phosphatase 69 (34-104) U/L Troponin I High Sens 9.9 (0-20) pg/ml B-Natriuretic Peptide (0-100) pg/ml Total Protein 5.6 L (6.0-8.3) gm/dl Albumin 3.4 (3.4-5.0) gm/dl Globulin 2.2 L (2.5-4.0) gm/dl Albumin/Globulin Ratio 1.5 (0.9-2) SARS-CoV-2, RNA, NAAT (NEGATIVE) Blood Type Antibody Screen 12/06/21 12/06/21 12/06/21 Range/Units 22:05 22:22 22:26 WBC (4.8-10.8) K/ul RBC (4.63-6.08) M/uL Hgb (14.0-18.0) g/dl Hct (40.1-51.0) % MCV (80.0-100.0) fL MCH (25.0-34.0) pg MCHC (32.0-36.0) g/dL RDW Std Deviation (36.4-46.3) fL RDW Coeff of Lianne (11.5-14.5) % Plt Count (130-400) K/uL MPV (9.4-12.4) fL Immature Gran % (Auto) % Neut % (Auto) % Lymph % (Auto) % Cherry % (Auto) % Eos % (Auto) % Baso % (Auto) % Neut # (Auto) (1.4-6.5) K/uL Lymph # (Auto) (1.2-3.4) K/uL Cherry # (Auto) (0.24-0.82) K/uL Eos # (Auto) (0-0.50) K/uL Baso # (Auto) (0-0.2) K/uL Immature Gran # (Auto) (0.00-0.02) K/uL PT (9.0-12.0) Seconds INR (0.9-1.1) VBG pH 7.39 (7.36-7.41) VBG pCO2 39 (38-50) mmHg VBG pO2 37 mmHg VBG HCO3 24 mmol/L VBG O2 Saturation 63.3 % VBG Base Excess -1.2 mEq/L Sodium (136-145) mmol/L Potassium (3.5-5.1) mmol/L Chloride (98-107) mmol/L Carbon Dioxide (21-32) mmol/L Anion Gap (3-11) BUN (6-23) mg/dl Creatinine (0.6-1.4) mg/dl Est Cr Clr Drug Dosing ml/min Est GFR ( Amer) ml/min Est GFR (Non-Af Amer) ml/min BUN/Creatinine Ratio (10-20) Glucose (70-99(Fasting)) mg/dl Calcium (8.5-10.1) mg/dl Magnesium (1.7-2.4) mg/dl Total Bilirubin (0.2-1.0) mg/dl AST (13-39) U/L ALT (7-52) U/L Alkaline Phosphatase (34-104) U/L Troponin I High Sens (0-20) pg/ml B-Natriuretic Peptide 120 H (0-100) pg/ml Total Protein (6.0-8.3) gm/dl Albumin (3.4-5.0) gm/dl Globulin (2.5-4.0) gm/dl Albumin/Globulin Ratio (0.9-2) SARS-CoV-2, RNA, NAAT NEGATIVE (NEGATIVE) Blood Type Antibody Screen 12/07/21 Range/Units 00:30 WBC (4.8-10.8) K/ul RBC (4.63-6.08) M/uL Hgb (14.0-18.0) g/dl Hct (40.1-51.0) % MCV (80.0-100.0) fL MCH (25.0-34.0) pg MCHC (32.0-36.0) g/dL RDW Std Deviation (36.4-46.3) fL RDW Coeff of Lianne (11.5-14.5) % Plt Count (130-400) K/uL MPV (9.4-12.4) fL Immature Gran % (Auto) % Neut % (Auto) % Lymph % (Auto) % Cherry % (Auto) % Eos % (Auto) % Baso % (Auto) % Neut # (Auto) (1.4-6.5) K/uL Lymph # (Auto) (1.2-3.4) K/uL Cherry # (Auto) (0.24-0.82) K/uL Eos # (Auto) (0-0.50) K/uL Baso # (Auto) (0-0.2) K/uL Immature Gran # (Auto) (0.00-0.02) K/uL PT (9.0-12.0) Seconds INR (0.9-1.1) VBG pH (7.36-7.41) VBG pCO2 (38-50) mmHg VBG pO2 mmHg VBG HCO3 mmol/L VBG O2 Saturation % VBG Base Excess mEq/L Sodium (136-145) mmol/L Potassium (3.5-5.1) mmol/L Chloride (98-107) mmol/L Carbon Dioxide (21-32) mmol/L Anion Gap (3-11) BUN (6-23) mg/dl Creatinine (0.6-1.4) mg/dl Est Cr Clr Drug Dosing ml/min Est GFR ( Amer) ml/min Est GFR (Non-Af Amer) ml/min BUN/Creatinine Ratio (10-20) Glucose (70-99(Fasting)) mg/dl Calcium (8.5-10.1) mg/dl Magnesium (1.7-2.4) mg/dl Total Bilirubin (0.2-1.0) mg/dl AST (13-39) U/L ALT (7-52) U/L Alkaline Phosphatase (34-104) U/L Troponin I High Sens (0-20) pg/ml B-Natriuretic Peptide (0-100) pg/ml Total Protein (6.0-8.3) gm/dl Albumin (3.4-5.0) gm/dl Globulin (2.5-4.0) gm/dl Albumin/Globulin Ratio (0.9-2) SARS-CoV-2, RNA, NAAT (NEGATIVE) Blood Type O Positive Antibody Screen NEGATIVE Administered Medications Acetaminophen (Acetaminophen 325 Mg Tab) 650 mg PO Q4H PRN PRN Reason: pain Stop: 01/06/22 03:26 Last Admin: 12/07/21 03:48 Dose: 650 mg Documented By: KATHERIN Allopurinol (Allopurinol 100 Mg Tab) 100 mg PO QPM KIRSTEN Stop: 01/06/22 20:59 Last Admin: 12/08/21 21:09 Dose: 100 mg Documented By: Admin: 12/07/21 21:30 Dose: 100 mg Documented By: LONNIE Atorvastatin Calcium (Atorvastatin 40 Mg Tab) 40 mg PO HS KIRSTEN Stop: 01/06/22 20:59 Last Admin: 12/08/21 21:10 Dose: 40 mg Documented By: Admin: 12/07/21 21:30 Dose: 40 mg Documented By: LONNIE Carbidopa/Levodopa (Carbidopa/Levodopa 25/100mg Tab) 1 tab PO TID KIRSTEN Stop: 01/06/22 08:59 Last Admin: 12/09/21 09:41 Dose: 1 tab Documented By: Admin: 12/08/21 21:10 Dose: 1 tab Documented By: Admin: 12/08/21 14:37 Dose: 1 tab Documented By: [id number] Admin: 12/08/21 09:41 Dose: 1 tab Documented By: Admin: 12/07/21 21:29 Dose: 1 tab Documented By: Admin: 12/07/21 14:04 Dose: 1 tab Documented By: Admin: 12/07/21 09:55 Dose: 1 tab Documented By: ASHIA Fexofenadine HCl (Fexofenadine Hcl 180 Mg Tab) 180 mg PO QAM KIRSTEN Stop: 01/06/22 08:59 Last Admin: 12/09/21 09:37 Dose: 180 mg Documented By: Admin: 12/08/21 09:41 Dose: 180 mg Documented By: Admin: 12/07/21 09:55 Dose: 180 mg Documented By: ASHIA Finasteride (Finasteride 5 Mg Tab) 5 mg PO QAM KIRSTEN Stop: 01/06/22 08:59 Last Admin: 12/09/21 09:37 Dose: 5 mg Documented By: Admin: 12/08/21 09:41 Dose: 5 mg Documented By: Admin: 12/07/21 09:54 Dose: 5 mg Documented By: ASHIA Fluticasone Furoate (Fluticasone Furoate 100mcg 14 Puffs/Inhaler) 1 puffs INH DAILY KIRSTEN Stop: 01/06/22 08:59 Last Admin: 12/09/21 09:42 Dose: 1 puffs Documented By: Admin: 12/08/21 09:42 Dose: 1 puffs Documented By: Admin: 12/07/21 09:48 Dose: 1 puffs Documented By: ASHIA Gabapentin (Gabapentin 300 Mg Cap) 300 mg PO HS KIRSTEN Stop: 01/06/22 20:59 Last Admin: 12/08/21 21:09 Dose: 300 mg Documented By: Admin: 12/07/21 21:30 Dose: 300 mg Documented By: LONNIE Insulin Aspart (Insulin Aspart Per Unit) 0 units SC ACHS KIRSTEN Stop: 01/06/22 07:29 Last Admin: 12/09/21 09:34 Dose: 2 units Documented By: EBENEZER Co-signed By: BLANCA Admin: 12/08/21 21:30 Dose: Not Given Documented By: BERNADINE Co-signed By: NATHANIEL Admin: 12/08/21 18:39 Dose: 2 units Documented By: ELLY Co-signed By: CHRISSY Admin: 12/08/21 14:08 Dose: 2 units Documented By: [id number] Co-signed By: SHARON Admin: 12/08/21 08:51 Dose: Not Given Documented By: Admin: 12/07/21 22:22 Dose: Not Given Documented By: LONNIE Co-signed By: GRETEL Admin: 12/07/21 18:06 Dose: 4 units Documented By: ASHIA Co-signed By: ONIEL Admin: 12/07/21 12:15 Dose: Not Given Documented By: Admin: 12/07/21 08:22 Dose: Not Given Documented By: ASHIA Insulin Glargine (Lantus Per Unit Charge) 20 units SQ QAM [facility] Stop: 01/06/22 08:59 Last Admin: 12/09/21 09:35 Dose: 20 units Documented By: EBENEZER Co-signed By: BLANCA Admin: 12/08/21 09:43 Dose: Not Given Documented By: Admin: 12/07/21 09:54 Dose: Not Given Documented By: ASHIA Levetiracetam (Levetiracetam 500 Mg Tab) 1,000 mg PO BID [facility] Stop: 01/06/22 08:59 Last Admin: 12/09/21 09:41 Dose: 1,000 mg Documented By: Admin: 12/08/21 21:11 Dose: 1,000 mg Documented By: Admin: 12/08/21 09:42 Dose: 1,000 mg Documented By: Admin: 12/07/21 21:40 Dose: 1,000 mg Documented By: Admin: 12/07/21 09:53 Dose: 1,000 mg Documented By: ASHIA Potassium Chloride (Potassium Chloride Crtab 20 Meq Tabcr) 20 meq PO QAM [facility] Stop: 01/06/22 08:59 Last Admin: 12/09/21 09:37 Dose: 20 meq Documented By: Admin: 12/08/21 09:42 Dose: 20 meq Documented By: Admin: 12/07/21 09:52 Dose: 20 meq Documented By: ASHIA Prednisone (Prednisone 10 Mg Tablet) 10 mg PO QAM [facility] Stop: 01/06/22 08:59 Last Admin: 12/09/21 09:37 Dose: 10 mg Documented By: Admin: 12/08/21 09:42 Dose: 10 mg Documented By: Admin: 12/07/21 09:52 Dose: 10 mg Documented By: ASHIA Sennosides (Senna 8.6 Mg Tab) 17.2 mg PO QAM KIRSTEN Stop: 01/06/22 08:59 Last Admin: 12/09/21 09:37 Dose: 17.2 mg Documented By: Admin: 12/08/21 09:42 Dose: 17.2 mg Documented By: Admin: 12/07/21 09:51 Dose: Not Given Documented By: ASHIA Topiramate (Topiramate 100 Mg Tab) 100 mg PO BID KIRSTEN Stop: 01/06/22 08:59 Last Admin: 12/09/21 09:41 Dose: 100 mg Documented By: Admin: 12/08/21 21:09 Dose: 100 mg Documented By: Admin: 12/08/21 09:42 Dose: 100 mg Documented By: Admin: 12/07/21 21:29 Dose: 100 mg Documented By: Admin: 12/07/21 09:50 Dose: 100 mg Documented By: ASHIA Umeclidinium/Vilanterol (Umeclidinium/Vilanterol 62.5/25mcg 7 Puffs/Inhaler) 1 puffs INH DAILY KIRSTEN Stop: 01/06/22 08:59 Last Admin: 12/09/21 09:43 Dose: 1 puffs Documented By: Admin: 12/08/21 09:42 Dose: 1 puffs Documented By: Admin: 12/07/21 09:48 Dose: 1 puffs Documented By: ASHIA Discontinued Medications Albuterol (Albut/Ipratrop 3mg/0.5mg Neb 3 Ml Vial) 3 ml INH NOW STA Stop: 12/06/21 21:28 Last Admin: 12/06/21 23:31 Dose: 3 ml Documented By: LIANA Albuterol (Albut/Ipratrop 3mg/0.5mg Neb 3 Ml Vial) Confirm Administered Dose 3 ml .ROUTE .STK-MED ONE Stop: 12/06/21 23:30 Last Admin: 12/06/21 23:32 Dose: Not Given Documented By: LIANA Furosemide (Furosemide 40 Mg/4 Ml Vial) 40 mg IV ONE ONE Stop: 12/07/21 00:13 Last Admin: 12/07/21 01:17 Dose: 40 mg Documented By: LIANA Lorazepam 2 mg/ Syringe 2 mls @ 2 mls/min IV NOW STA Stop: 12/07/21 19:09 Last Admin: 12/07/21 19:00 Dose: 2 mls/min Documented By: LONNIE Lorazepam (Lorazepam 2 Mg/1 Ml Vial) Confirm Administered Dose 2 mg .ROUTE .STK- MED ONE Stop: 12/07/21 19:01 Last Admin: 12/07/21 21:39 Dose: Not Given Documented By: LONNIE Lorazepam (Lorazepam 2 Mg/1 Ml Vial) Confirm Administered Dose 2 mg .ROUTE .STK- MED ONE Stop: 12/08/21 08:39 Last Admin: 12/08/21 08:38 Dose: 2 mg Documented By: MICHAEL Potassium Chloride (Potassium Chloride Crtab 20 Meq Tabcr) 40 meq PO NOW STA Stop: 12/07/21 00:14 Last Admin: 12/07/21 01:17 Dose: 40 meq Documented By: LIANA Warfarin Sodium (Warfarin Sod 7.5 Mg Tab) 7.5 mg PO NOW ONE Stop: 12/08/21 21:01 Last Admin: 12/08/21 21:42 Dose: 7.5 mg Documented By: BERNADINE Discharge Plan Visit Data Chief Complaint: Shortness of Breath/Dyspnea Stated Complaint: hypoxia ED Provider: Wilmer Mayo Discharge Problem: Chronic respiratory failure with hypoxia, Shortness of breath, Weakness Patient Disposition: Admitted As Inpatient Discharge Instructions Interventions: ED Discharge Assessment Last Done: 12/07/21 18:12
[2021-12-06] MEDS ORDERED: ALBUT/IPRATROP 3MG/0.5MG NEB 3 ML VIAL INH STA (21:27)
[2021-12-06 22:17] LABS: Basophils # (auto) 0.01 K/uL (0-0.2); Basophils % (auto) 0.3 %; Eosinophils # (auto) 0.07 K/uL (0-0.50); Eosinophils % (auto) 1.9 %; Hematocrit (blood only) 28.8 % (40.1-51.0); Hemoglobin 8.8 g/dl (14.0-18.0); Immature Granulocytes # (auto) 0.03 K/uL (0.00-0.02); Immature Granulocytes % (auto) 0.8 %; Lymphocytes # (auto) 0.65 K/uL (1.2-3.4); Lymphocytes % (auto) 17.8 %; Mean Platelet Volume 10.2 fL (9.4-12.4); Monocytes # (auto) 0.17 K/uL (0.24-0.82); Monocytes % (auto) 4.7 %; Neutrophils # (auto) 2.72 K/uL (1.4-6.5); Neutrophils % (auto) 74.5 %; Platelet Count 121 K/uL (130-400); White Blood Count 3.65 K/ul (4.8-10.8)
[2021-12-06 22:32] LABS: Troponin I High Sensitivity 9.9 pg/ml (0-20)
[2021-12-06 22:35] LABS: Mean Corpuscular Hemoglobin 27.6 pg (25.0-34.0); Mean Corpuscular Hgb Conc 30.6 g/dL (32.0-36.0); Mean Corpuscular Volume 90.3 fL (80.0-100.0); RDW Coefficient of Variation 14.6 % (11.5-14.5); RDW Standard Deviation 48.1 fL (36.4-46.3); Red Blood Count 3.19 M/uL (4.63-6.08)
[2021-12-06 22:36] LABS: Albumin Globulin Ratio 1.5 (0.9-2); Albumin Level 3.4 gm/dl (3.4-5.0); BUN Creatinine Ratio 22.4 (10-20); Bilirubin,Total 0.4 mg/dl (0.2-1.0); Calcium 8.9 mg/dl (8.5-10.1); Creatinine Clr Calc Pharmacy 62.8 ml/min; Est GFR (African American) 64.4 ml/min; Est GFR (Non-African American) 55.6 ml/min; Globulin 2.2 gm/dl (2.5-4.0); Potassium 3.6 mmol/L (3.5-5.1); Total Protein 5.6 gm/dl (6.0-8.3)
[2021-12-06 22:39] LABS: Base Excess VBG -1.2 mEq/L; HCO3 VBG 24 mmol/L; Oxygen Saturation VBG 63.3 %; PCO2 VBG 39 mmHg (38-50); PO2 VBG 37 mmHg; pH VBG 7.39 (7.36-7.41)
[2021-12-06 23:15] LABS: INR 2.1 (0.9-1.1); Prothrombin Time 21.7 Seconds (9.0-12.0)
[2021-12-06] MEDS ORDERED: ALBUT/IPRATROP 3MG/0.5MG NEB 3 ML VIAL ONE (23:29)
[2021-12-07] MEDS ORDERED: FUROSEMIDE 40 MG/4 ML VIAL IV ONE (00:12)
[2021-12-07] MEDS ORDERED: POTASSIUM CHLORIDE CRTAB 20 MEQ TABCR PO STA (00:13)
--- NOTE | 2021-12-07 02:03 | History & Physical Report ---
Date of Service December 07, 2021 Assessment & Plan (1) Lower GI bleed: Plan: Reports BRBPR x 3-4 days, 2-3 episodes each day. Hgb was 12 on 11/24, now down to 8.8 on admission. - Hold ASA and warfarin - NPO - Trend hgb - GI consulted - T&S and consented in the ER, but presently hemodynamically stable, so will hold off on tx for now. (2) Shortness of breath: Plan: Diagnosis of PNA in late October and s/p 7 days of levofloxacin. CXR on admission actually looks improved to me. Possibly from anemia vs. CHF. Last echo showed EF > 70%. - Treated with Lasix IV in the ER - Supplemental O2 PRN - Consider further Lasix if he remains stable or if he needs a transfusion. (3) Aortic valve replaced: Plan: Mechanical valve. Last cardiology rec I see is for INR 2.5 - 3.5. - Hold warfarin for now given GI bleed, but will hold on reversal as mechanical valves have a high thrombotic risk. Obviously will have to reverse if we see further significant bleeding. - Cardiology consulted (4) CAD (coronary artery disease): Plan: Prior cath in 04/2021. - Hold ASA as above - Continue statin (5) Diabetes: Plan: - Lower home Lantus given NPO - Sliding scale insulin (6) Chronic kidney disease, stage 3a: Plan: At baseline. History of Present Illness Primary Care Provider: Josh Gaspar MD 76y yo M who presents with increasing shortness of breath and bright red blood per rectum. Had been seen in ER in late October for PNA. Sent home on oral levofloxcin x 7 days. Had some stomach upset with it, but otherwise did ok. Saw PCP a few days ago who recommended patience on improving. Comes in today with increasing shortness of breath and dyspnea on exertion. Abdominal pain is improved, and not having emesis, but does report to me that he's had 3-4 days of bright red blood per rectum. Happening 2-3 times per day, and reports it is enough to stain the toilet bowl (as opposed to just some on the toilet paper). Allergies Allergy/AdvReac Type Severity Reaction Status Date / Time Iodinated Contrast Media Allergy Severe Anaphylaxis Verified 12/06/21 23:01 shellfish derived Allergy Severe Anaphylaxis Verified 12/06/21 23:01 tamsulosin [From Flomax] Allergy Intermediate Itching Verified 12/06/21 23:01 Tetanus Vaccines and Toxoid Allergy Unknown Unknown Verified 12/06/21 23:01 Home Medications Medication Instructions Recorded Confirmed Type atorvastatin 40 mg tablet 40 mg PO HS 05/28/20 12/06/21 History fexofenadine 180 mg tablet 180 mg PO QAM 02/11/21 12/06/21 History (Karlee Allergy) allopurinol 100 mg tablet 100 mg QPM 04/10/21 12/06/21 History finasteride 5 mg tablet 5 mg PO QAM 04/28/21 12/06/21 History levetiracetam 500 mg tablet 1,000 mg PO BID 06/30/21 12/06/21 History (Keppra) insulin aspart U-100 100 unit/mL See Rx Instructions .Route 07/08/21 12/06/21 Rx (3 mL) subcutaneous pen (Novolog .COMPLEX #0 mL Flexpen U-100 Insulin aspart) topiramate 100 mg tablet (Topamax) 100 mg PO BID 30 days #60 tabs 07/12/21 12/06/21 Rx cholecalciferol (vitamin D3) 50 4,000 unit PO HS 07/14/21 12/06/21 History mcg (2,000 unit) capsule (Vitamin D3) prednisone 10 mg tablet 10 mg PO QAM 07/14/21 12/06/21 History insulin glargine 100 unit/mL (3 20 unit subcut BID 07/26/21 12/06/21 History mL) subcutaneous pen (Lantus Solostar U-100 Insulin) acetaminophen 325 mg tablet 650 mg PO Q4H PRN pain #30 tabs 08/04/21 12/06/21 Rx aspirin 81 mg tablet,delayed 81 mg PO QAM #30 tabs 08/04/21 12/06/21 Rx release fluticasone fur. 100 mcg-umeclid 1 inh inhalation QAM #60 ea 09/06/21 12/06/21 Rx 62.5 mcg-vilant 25 mcg inhalat.powder (Trelegy Ellipta) albuterol sulfate 90 mcg/actuation 2 puff inhalation Q4H PRN 09/27/21 12/06/21 History aerosol inhaler (Ventolin HFA) Shortness Of Breath Or Wheezing polyethylene glycol 3350 17 17 g PO BID PRN Constipation 10/04/21 12/06/21 History gram/dose oral powder (Miralax) carbidopa 25 mg-levodopa 100 mg 1 tab PO TID 11/24/21 12/06/21 History tablet dulaglutide 1.5 mg/0.5 mL 1.5 mg subcut WK 11/24/21 12/06/21 History subcutaneous pen injector (Trulicity) furosemide 20 mg tablet 20 mg PO QAM 11/24/21 12/06/21 History gabapentin 300 mg capsule 300 mg PO HS 11/24/21 12/06/21 History gabapentin 300 mg capsule 600 mg PO QAM 11/24/21 12/06/21 History magnesium 250 mg tablet 250 mg PO QAM 11/24/21 12/06/21 History potassium chloride 20 mEq 20 meq PO QAM 11/24/21 12/06/21 History tablet,extended release(part/cryst) (Klor-Con M) sennosides 8.6 mg tablet (Senokot) 17.2 mg PO QAM 11/24/21 12/06/21 History warfarin 5 mg tablet 5 mg PO 5XWK 11/24/21 12/06/21 History warfarin 7.5 mg tablet 7.5 mg PO 2XWK 11/24/21 12/06/21 History Past Med/Surg History Medical History Acute dehydration Acute left-sided muscle weakness Anemia CAD (coronary artery disease) Cerebrovascular accident Current use of jail anticoagulation Dehydration Depression Diabetes Dizziness AZUL (dyspnea on exertion) Elevated troponin Fall Fall Fall Generalized weakness Headache Hypervolemia Hypoxia Lower back pain Nasal congestion Non-ST elevation PA (NSTEMI) Non-sustained ventricular tachycardia Retrosternal chest pain Rheumatoid arthritis Stroke-like symptom 12/2019, w/ blurry vision and dysarthria. mild R sided wkness. attending outpatient physical therapy w/ good improvement in strength (5+/5 strength of all 4 extremities as of 05/28/20) Syncope Weakness Surgical History H/O hernia repair History of cholecystectomy History of fusion of cervical spine History of heart artery stent History of lung biopsy 2019 History of partial nephrectomy Family History Mother , age 87 of pulmonary issues Rheumatoid arthritis Father , in his mid 80s of a stroke Stroke Other Coronary heart disease Social History Smoking Status: Never smoker Second Hand Exposure: No; Hx Alcohol Use: No Hx Substance Use: No Preferred Language: [place] Communication Ability: Effective Hearing Ability: Hard of Hearing Medicine And Health Service Manager Required: No Beliefs That Will Affect Care: None marital status: / Current Living Situation: Alone Current Living Situation Comment: lives alone in a one story house in [place] current occupational status: retired 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 How many Children do You have: 2 How many Children do You have Comment: son Feels Safe at Home: Yes Assistive Devices: Walker Review of Systems Review of Systems: All systems reviewed & are unremarkable except as noted in HPI & below Physical Exam Constitutional: WD/WN, vitals as above Eyes: EOM intact bilaterally; no conjunctival abnormality ENMT: external ear and nose normal, oropharynx normal Neck: trachea midline, no thyromegaly normal visual inspection Respiratory: normal respiratory effort, lungs clear to auscultation no respiratory distress Cardiovascular: RRR, no murmur, no edema Gastrointestinal (Abdomen): Inspection/Auscultation: abdomen normal to inspection; abdomen not distended Percussion/Palpation: abdomen soft; abdomen nontender, no guarding and abdomen not rigid Musculoskeletal: no cyanosis or clubbing, extremities motor strength 5/5 Skin: no rashes, warm and dry Neurologic: moves all extremities and awake Psychiatric: Orientation: alert, oriented to person and cooperative Results & Data Results & Data ([facility]) Vital Signs (Past 12 Hours) Vital Signs Temp Pulse Pulse Resp BP BP Pulse Ox 12/07/21 00:08 89 18 148/80 H 92 12/06/21 21:30 88 L 12/06/21 21:30 36.6 C 73 18 155/108 H 88 L O2 Del Method O2 Flow Rate 12/07/21 00:08 Nasal Cannula 2 12/06/21 21:30 Room Air 12/06/21 21:30 Room Air Code Status & VTE Plan VTE Prophylaxis Plan VTE Prophylaxis will be ordered: Yes PG Care Time/CCT Total # of Minutes Spent Total Time Spent with Patient: Total time spent is greater than 50% in coordination of care (as documented) at patient's floor/unit and/or counseling patient: Coding Level of Care Code 08841 Initial Inpt Care Lvl 3 Diagnoses Lower GI bleed K92.2 Shortness of breath R06.02 Aortic valve replaced Z95.2 CAD (coronary artery disease) I25.10 Coronary Disease-Associated Artery/Lesion type: [place] artery [place] vs. transplanted heart: [place] heart Associated angina: without angina Diabetes E11.42; Z79.4 Diabetes mellitus type: type 2 Diabetes mellitus jail insulin use: with long filler cigar roller machine use Diabetes mellitus complication status: with neurologic complications Diabetes mellitus complication detail: with polyneuropathy Chronic kidney disease, stage 3a N18.3 (1) CAD (coronary artery disease) Coronary Disease-Associated Artery/Lesion type: [place] artery [place] vs. transplanted heart: [place] heart Associated angina: without angina Qualified Code(s): I25.10 - Atherosclerotic heart disease of [place] coronary artery without angina pectoris (2) Diabetes Diabetes mellitus type: type 2 Diabetes mellitus long filler cigar roller machine insulin use: with long filler cigar roller machine use Diabetes mellitus complication status: with neurologic complications Diabetes mellitus complication detail: with polyneuropathy Qualified Code(s): E11.42 - Type 2 diabetes mellitus with diabetic polyneuropathy; Z79.4 - care home (current) use of insulin
[2021-12-07] MEDS ORDERED: GLUCOSE 10 TAB/TUBE PO PRN (03:27)
[2021-12-07] MEDS ORDERED: CARBOHYDRATES FOR HYPOGLYCEMIA PO PRN (03:27)
[2021-12-07] MEDS ORDERED: ONDANSETRON INJ 2 MG/ML 2 ML VIAL IV PRN (03:27)
[2021-12-07] MEDS ORDERED: GLUCAGON FOR INJ 1 MG VIAL SQ PRN (03:27)
[2021-12-07] MEDS ORDERED: DEXTROSE 50% 50 ML SYRINGE IV PRN (03:27)
[2021-12-07] MEDS ORDERED: GLUCOSE 40% GEL 15 GM TUBE PO PRN (03:27)
[2021-12-07] MEDS ORDERED: ALBUTEROL HFA 8 GM INHALER INH PRN (03:27)
[2021-12-07] MEDS: ACETAMINOPHEN 325 MG TAB PO PRN (03:48)
[2021-12-07 04:25] LABS: Hematocrit (blood only) 36.3 % (40.1-51.0); Hemoglobin 11.3 g/dl (14.0-18.0); Mean Corpuscular Hemoglobin 27.9 pg (25.0-34.0); Mean Corpuscular Hgb Conc 31.1 g/dL (32.0-36.0); Mean Corpuscular Volume 89.6 fL (80.0-100.0); Platelet Count 151 K/uL (130-400); RDW Coefficient of Variation 14.6 % (11.5-14.5); Red Blood Count 4.05 M/uL (4.63-6.08); White Blood Count 6.25 K/ul (4.8-10.8)
[2021-12-07 04:40] LABS: INR 2.1 (0.9-1.1); Prothrombin Time 21.9 Seconds (9.0-12.0)
[2021-12-07 04:51] LABS: BUN Creatinine Ratio 21.8 (10-20); Creatinine Clr Calc Pharmacy 63.6 ml/min; Est GFR (Non-African American) 56.1 ml/min; Potassium 3.6 mmol/L (3.5-5.1)
[2021-12-07] MEDS: INSULIN ASPART PER UNIT SC SCH ×4 (08:22→22:22)
--- NOTE | 2021-12-07 08:39 | Cardiology Progress Note ---
Date of Service December 07, 2021 Assessment & Plan Admission and Anticipated Discharge Date Admission Date: December 07, 2021 Subjective This is 1 of a series of admissions for Mr. Bradford who was basically admitted almost monthly for the last 6 months. He was most recently here for pneumonia. He notes progressive shortness of breath which started to get better but then has worsened. He notes he wears his oxygen at home at night but not normally during the day. Initially with treatment his pulse ox started to improve but he is noted a decline in his pulse ox over the last number of days. He describes having had bright red blood on and off over the last number of weeks to even a month or so. He also notes at times that he has had some dark black tarry stools. He had contacted his primary care provider Earlier this week who recommended he come to the emergency room. He did not wish to come back to the hospital but ultimately last night he had more bleeding and had worsening shortness of breath and came to the hospital. His hemoglobin was down compared to his prior hemoglobins in the computer. It he was transfused overnight. And his hemoglobin has improved this morning. He has not had an additional bowel movement since he has been in the hospital. His INR is were elevated mid September but since then have actually been on the lower side for him in the low twos. He denies any lower extremity edema. He denies any orthopnea. Denies any increased abdominal distention suggest volume retention. He notes occasional palpitations when he is nauseous and not feeling well. The rest of a complete review systems is negative Results & Data ([facility]) Vital Signs (Past 12 Hours) Vital Signs Temp Pulse Pulse Resp BP BP Pulse Ox 12/07/21 04:07 65 20 130/78 95 12/07/21 04:06 65 20 130/76 96 12/07/21 03:54 67 20 130/70 95 12/07/21 02:00 69 15 135/72 96 12/07/21 00:08 89 18 148/80 H 92 12/06/21 21:30 88 L 12/06/21 21:30 36.6 C 73 18 155/108 H 88 L O2 Del Method O2 Flow Rate 12/07/21 04:07 Nasal Cannula 2 12/07/21 04:06 Nasal Cannula 2 12/07/21 03:54 Nasal Cannula 2 12/07/21 02:00 Room Air 12/07/21 00:08 Nasal Cannula 2 12/06/21 21:30 Room Air 12/06/21 21:30 Room Air He is awake alert and oriented x3 he does appear short of breath talking in sentences H EENT: 2+ carotid upstrokes no evidence of carotid bruits Lungs: Clear to auscultation no rales rhonchi or wheezing he did have decreased breath sounds in the bases bilaterally Heart: Regular rate and rhythm with a crisp click of his mechanical aortic valve there were no appreciable systolic or diastolic murmurs Abdomen: Soft nontender distended positive bowel sounds Extremities: No clubbing cyanosis or edema His inpatient diagnostic studies including his chest x-ray EKG and laboratory studies were reviewed 1A. Admitted with lower GI bleed with bright red blood but he does note at times that he is having dark black tarry stools while on chronic anticoagulation 1B. Echocardiogram with moderate to severe left ventricular hypertrophy with normal left ventricular systolic function and EF in the range of 70% June 2021 1c. History of false positive troponin elevations at [facility] due to an antibody to the test. 2. History of mechanical aortic valve placed in 2003 at the time of an aortic dissection with repair of his a sending aorta 3. History of a left main stent in February 2019 4. 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 Multiple TIAs 6. Chronic anticoagulation with a goal INR of 2-1/2-3-1/2 with 81 mg of aspirin given his mechanical aortic valve and chronic atrial fibrillation 7. Paroxysmal atrial fibrillation 8. Rheumatoid arthritis and polymyositis 9. Parkinson's disease 10. Diabetes mellitus type 2 From my standpoint his anticoagulation can be held at least a week with limited risk of valve thrombosis or an embolic event from his mechanical valve. He is in sinus rhythm this morning but we know that he has paroxysmal atrial fibrillation. If he were to have recurrent atrial fibrillation with a subtherapeutic INR then there is a risk of stroke while off anticoagulation. We Will await GIs input given his anemia and the need for transfusion With his GI bleeding. The question is does he need both an upper and lower endoscopy given the fact he is also had some dark black tarry stools as well Bright red blood per rectum. Clinically he is not in heart failure nor is he having any angina at this point. His catheterization from April revealed a patent left main stent and no progression of his coronary disease.. He does appear short of breath talking in sentences but his oxygen was not on. His chest x-ray continues to show his bilateral infiltrates But it is probably too soon to see resolution of them post antibiotic treatment.
[2021-12-07] MEDS ORDERED: NON-FORMULARY MEDICATION (Fluticasone-Umeclidin-Vilanter [Trelegy Ellipta] 100-62.5-25 mcg INH SCH (09:00)
--- NOTE | 2021-12-07 09:28 | XRay Report ---
XR chest 1V portable CLINICAL HISTORY: Dyspnea. COMPARISON STUDY: Chest radiograph November 24, 2021. FINDINGS: There are median sternotomy wires. Cardiomegaly is unchanged. No evidence for pulmonary edvin ma. No pneumothorax or pleural effusion is noted. Bibasilar opacities have increased since prior exam . IMPRESSION: Bibasilar opacities, increased since prior exam. The findings may reflect pneumonia or a telectasis. Radiographic follow up is recommended. ACT 112: Negative or not required by law. Electronically signed by: John Paul Drummond M.D. 12/07/2021 9:27 AM
[2021-12-07] MEDS: FLUTICASONE FUROATE 100MCG 14 PUFFS/INHALER INH SCH (09:48)
[2021-12-07] MEDS: UMECLIDINIUM/VILANTEROL 62.5/25MCG 7 PUFFS/INHALER INH SCH (09:48)
[2021-12-07] MEDS: TOPIRAMATE 100 MG TAB PO SCH ×2 (09:50→21:29)
[2021-12-07] MEDS: SENNA 8.6 MG TAB PO SCH (09:51)
[2021-12-07] MEDS: POTASSIUM CHLORIDE CRTAB 20 MEQ TABCR PO SCH (09:52)
[2021-12-07] MEDS: predniSONE 10 MG TABLET PO SCH (09:52)
[2021-12-07] MEDS: levETIRAcetam 500 MG TAB PO SCH ×2 (09:53→21:40)
[2021-12-07] MEDS: FINASTERIDE 5 MG TAB PO SCH (09:54)
[2021-12-07] MEDS: LANTUS PER UNIT CHARGE SQ SCH (09:54)
[2021-12-07] MEDS: CARBIDOPA/LEVODOPA 25/100MG TAB PO SCH ×3 (09:55→21:29)
[2021-12-07] MEDS: FEXOFENADINE HCL 180 MG TAB PO SCH (09:55)
--- NOTE | 2021-12-07 11:59 | Gastrointestinal Consultation ---
Date of Consultation December 07, 2021 Assessment & Plan (1) Pneumonia: (2) Lower GI bleed: Patient is a 76 years old male presenting with shortness of breath and bright red blood per rectum. He does have pneumonia, recently treated with levofloxacin though chest x-ray showed persistent infection. Rectal bleeding seems chronic and intermittent, though recently has noticed increased amount of blood. Blood count interestingly at baseline, no elevation of BUN. Abdominal examination is benign without any tenderness elicited on palpation and rectal exam without signs of rectal mass, hemorrhoids, fissures, brown stools noted on exam. He is on warfarin for history of A. fib, INR currently on therapeutic level. No NSAIDs uses or alcohol, tobacco abuses otherwise. Recommend monitoring blood count closely, transfuse as needed. Also monitor INR closely, adjust warfarin dose as needed. Given no continued signs of GI bleeding, would recommend him to undergo outpatient colonoscopy evaluation after his discharge and after his pulmonary issues are resolved. GI to sign off; pls recall prn History of Present Illness Reason for Consultation: Lower GI bleed Requesting Physician: Dr. Yessi Canas Attending Physician: Dr. Xavi Joshi History of Present Illness Pt is a 76 yo male who presented to ED yesterday w c/o SOB and BRBPR. Reports that he had been treated with Levofloxacin for pneumonia recently. Had completed antibx course. Chest x-ray showed bilateral basilar opacities, increased from prior. Labs showed that he is anemic with a hemoglobin of 8.8. However this morning blood ct improved to baseline wo blood transfusion. Patient is on warfarin for history of A. fib. INR was 2 on admission. BUN 27. He reports that he does have some lower abdominal pain. He notices bright red blood per rectum intermittently for the last few months however recently amount seems to have increased. He denies any other associated symptoms such as chest pain, lightheadedness or dizziness, nausea or vomiting. He has had EGD and colonoscopy evaluations years ago when he was living in [place] or [place]. States that he has had history of colon polyps but never found to have ulcers or cancers. He denies any uses of NSAIDs, tobacco products or alcohol. Allergies Allergy/AdvReac Type Severity Reaction Status Date / Time Iodinated Contrast Media Allergy Severe Anaphylaxis Verified 12/06/21 23:01 shellfish derived Allergy Severe Anaphylaxis Verified 12/06/21 23:01 tamsulosin [From Flomax] Allergy Intermediate Itching Verified 12/06/21 23:01 Tetanus Vaccines and Toxoid Allergy Unknown Unknown Verified 12/06/21 23:01 Home Medications Medication Instructions Recorded Confirmed Type atorvastatin 40 mg tablet 40 mg PO HS 05/28/20 12/06/21 History fexofenadine 180 mg tablet 180 mg PO QAM 02/11/21 12/06/21 History (Karlee Allergy) allopurinol 100 mg tablet 100 mg QPM 04/10/21 12/06/21 History finasteride 5 mg tablet 5 mg PO QAM 04/28/21 12/06/21 History levetiracetam 500 mg tablet 1,000 mg PO BID 06/30/21 12/06/21 History (Keppra) insulin aspart U-100 100 unit/mL See Rx Instructions .Route 07/08/21 12/06/21 Rx (3 mL) subcutaneous pen (Novolog .COMPLEX #0 mL Flexpen U-100 Insulin aspart) topiramate 100 mg tablet (Topamax) 100 mg PO BID 30 days #60 tabs 07/12/21 12/06/21 Rx cholecalciferol (vitamin D3) 50 4,000 unit PO HS 07/14/21 12/06/21 History mcg (2,000 unit) capsule (Vitamin D3) prednisone 10 mg tablet 10 mg PO QAM 07/14/21 12/06/21 History insulin glargine 100 unit/mL (3 20 unit subcut BID 07/26/21 12/06/21 History mL) subcutaneous pen (Lantus Solostar U-100 Insulin) acetaminophen 325 mg tablet 650 mg PO Q4H PRN pain #30 tabs 08/04/21 12/06/21 Rx aspirin 81 mg tablet,delayed 81 mg PO QAM #30 tabs 08/04/21 12/06/21 Rx release fluticasone fur. 100 mcg-umeclid 1 inh inhalation QAM #60 ea 09/06/21 12/06/21 Rx 62.5 mcg-vilant 25 mcg inhalat.powder (Trelegy Ellipta) albuterol sulfate 90 mcg/actuation 2 puff inhalation Q4H PRN 09/27/21 12/06/21 History aerosol inhaler (Ventolin HFA) Shortness Of Breath Or Wheezing polyethylene glycol 3350 17 17 g PO BID PRN Constipation 10/04/21 12/06/21 History gram/dose oral powder (Miralax) carbidopa 25 mg-levodopa 100 mg 1 tab PO TID 11/24/21 12/06/21 History tablet dulaglutide 1.5 mg/0.5 mL 1.5 mg subcut WK 11/24/21 12/06/21 History subcutaneous pen injector (Trulicity) furosemide 20 mg tablet 20 mg PO QAM 11/24/21 12/06/21 History gabapentin 300 mg capsule 300 mg PO HS 11/24/21 12/06/21 History gabapentin 300 mg capsule 600 mg PO QAM 11/24/21 12/06/21 History magnesium 250 mg tablet 250 mg PO QAM 11/24/21 12/06/21 History potassium chloride 20 mEq 20 meq PO QAM 11/24/21 12/06/21 History tablet,extended release(part/cryst) (Klor-Con M) sennosides 8.6 mg tablet (Senokot) 17.2 mg PO QAM 11/24/21 12/06/21 History warfarin 5 mg tablet 5 mg PO 5XWK 11/24/21 12/06/21 History warfarin 7.5 mg tablet 7.5 mg PO 2XWK 11/24/21 12/06/21 History Patient History Medical History Acute dehydration Acute left-sided muscle weakness Anemia CAD (coronary artery disease) Cerebrovascular accident Current use of shelter anticoagulation Dehydration Depression Diabetes Dizziness AZUL (dyspnea on exertion) Elevated troponin Fall Fall Fall Generalized weakness Headache Hypervolemia Hypoxia Lower back pain Nasal congestion Non-ST elevation NE (NSTEMI) Non-sustained ventricular tachycardia Retrosternal chest pain Rheumatoid arthritis Stroke-like symptom 12/2019, w/ blurry vision and dysarthria. mild R sided wkness. attending outpatient physical therapy w/ good improvement in strength (5+/5 strength of all 4 extremities as of 05/28/20) Syncope Weakness Surgical History H/O hernia repair History of cholecystectomy History of fusion of cervical spine History of heart artery stent History of lung biopsy 2019 History of partial nephrectomy Family History Mother , age 87 of pulmonary issues Rheumatoid arthritis Father , in his mid 80s of a stroke Stroke Other Coronary heart disease Social History Smoking Status: Never smoker Second Hand Exposure: No; Hx Alcohol Use: No Hx Substance Use: No Preferred Language: [place] Communication Ability: Effective Hearing Ability: Hard of Hearing Lap Hand Tool Required: No Beliefs That Will Affect Care: None marital status: / Current Living Situation: Alone Current Living Situation Comment: lives alone in a one story house in [place] current occupational status: retired 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 How many Children do You have: 2 How many Children do You have Comment: son Other Information That Helps Us Care for You: No Feels Safe at Home: Yes Safety Concerns: Feels Safe At This Time Assistive Devices: Walker Review of Systems Review of Systems: All systems reviewed & are unremarkable except as noted in HPI & below Physical Exam Constitutional: WD/WN, vitals as above well groomed, cooperative and comfortable Eyes: PERRL, conjunctivae normal, anicteric sclerae ENMT: external ear and nose normal, oropharynx normal Respiratory: normal respiratory effort, lungs clear to auscultation Cardiovascular: RRR, no murmur, no edema Gastrointestinal (Abdomen): normal bowel sounds, soft, nontender, no hepatosplenomegaly Rectal exam without signs of hemorrhoids, masses, brown stool noted without any clots. Skin: no rashes, warm and dry no jaundice Psychiatric: A+Ox3, euthymic affect Lymphatic: no lymphedema Results & Data ([facility]) Vital Signs (Past 12 Hours) Vital Signs Pulse Resp BP Pulse Ox O2 Del Method O2 Flow Rate 12/07/21 04:07 65 20 130/78 95 Nasal Cannula 2 12/07/21 04:06 65 20 130/76 96 Nasal Cannula 2 12/07/21 03:54 67 20 130/70 95 Nasal Cannula 2 12/07/21 02:00 69 15 135/72 96 Room Air 12/07/21 00:08 89 18 148/80 H 92 Nasal Cannula 2
--- NOTE | 2021-12-07 15:34 | Hospitalist Progress Note ---
Date of Service December 07, 2021 Assessment & Plan (1) Lower GI bleed: Plan: Reports BRBPR x 3-4 days, 2-3 episodes each day. Hgb was 12 on 11/24, Initial ED hb was 8.8 on admission, but recheck was 11.3 (possible lab error?) Patient did not receive blood transfusion Evaluated by GI No hemmorhoids or bloody stool on exam Adviced outpatient GI follow up Hold ASA and warfarin Receck hb tomorrow (2) Shortness of breath: Plan: Diagnosis of PNA in late October and s/p 7 days of levofloxacin. CXR on admission actually looks improved to me. Possibly from anemia vs. CHF. Last echo showed EF > 70%. - Treated with Lasix IV in the ER - Supplemental O2 PRN (3) Aortic valve replaced: Plan: Mechanical valve. Last cardiology rec I see is for INR 2.5 - 3.5. - Hold warfarin for now Per cardiology, can hold for 1 week However, will recheck INR and Hb tomorrow If GI can evaluate him outpatient within 1 week, we can hold warfarin till then - Cardiology consulted (4) CAD (coronary artery disease): Plan: Prior cath in 04/2021. - Hold ASA as above - Continue statin (5) Diabetes: Plan: - Lower home Lantus given NPO - Sliding scale insulin (6) Chronic kidney disease, stage 3a: Plan: At baseline. Plan d/c in the next 24 hrs if hb remains stable and no more bleeds Admission and Anticipated Discharge Date Admission Date: December 07, 2021 Subjective patient seen and examined, says sob is improved, denies blood in stool in the ED Review of Systems Review of Systems: All systems reviewed are negative, apart from the ones contained in the history. Physical Exam Physical Exam: The patient is awake, alert and oriented 3, well developed and well nourished, normocephalic and atraumatic, lying in bed and in no acute distress. HEENT--PERRL, EOMI, mucous membranes and oropharynx mildly dry Neck--supple. No JVD. No bruits. Thyroid normal, trachea midline, no adenopathy. Heart--normal S1 and S2. No murmurs, rubs or gallops. Lungs--clear bilaterally, no respiratory distress, no accessory muscle use. Abdomen--normal bowel sounds and soft. Mild epigastric and left sided abdominal pain Extremities--no cyanosis or clubbing. No edema. Dermatologic--normal skin turgor, normal color, no abnormal lymph nodes, no rash. Neurologic--cranial nerves II through XII grossly intact. Rheumatologic--normal range of motion. Psychiatric--normal affect. Results & Data Results & Data ([facility]) Vital Signs (Past 12 Hours) Vital Signs Pulse Resp BP Pulse Ox O2 Del Method O2 Flow Rate 12/07/21 04:07 65 20 130/78 95 Nasal Cannula 2 12/07/21 04:06 65 20 130/76 96 Nasal Cannula 2 12/07/21 03:54 67 20 130/70 95 Nasal Cannula 2 PG Care Time/CCT Total # of Minutes Spent Total Time Spent with Patient: Total time spent is greater than 50% in coordination of care (as documented) at patient's floor/unit and/or counseling patient: Coding Level of Care Code 93818 Subseq Hosp Care Lvl 2 Diagnoses Lower GI bleed K92.2 Shortness of breath R06.02 Aortic valve replaced Z95.2 CAD (coronary artery disease) I25.10 Coronary Disease-Associated Artery/Lesion type: [place] artery [place] vs. transplanted heart: [place] heart Associated angina: without angina Diabetes E11.42; Z79.4 Diabetes mellitus type: type 2 Diabetes mellitus intermodal customer service insulin use: with intermodal customer service use Diabetes mellitus complication status: with neurologic complications Diabetes mellitus complication detail: with polyneuropathy Chronic kidney disease, stage 3a N18.3 Time Spent (min) 35 (1) CAD (coronary artery disease) Coronary Disease-Associated Artery/Lesion type: [place] artery [place] vs. transplanted heart: [place] heart Associated angina: without angina Qualified Code(s): I25.10 - Atherosclerotic heart disease of [place] coronary artery without angina pectoris (2) Diabetes Diabetes mellitus type: type 2 Diabetes mellitus intermodal customer service insulin use: with long-term use Diabetes mellitus complication status: with neurologic complications Diabetes mellitus complication detail: with polyneuropathy Qualified Code(s): E11.42 - Type 2 diabetes mellitus with diabetic polyneuropathy; Z79.4 - watermaster (current) use of insulin
[2021-12-07] MEDS ORDERED: LORazepam 2 MG/1 ML VIAL ONE (19:00)
[2021-12-07] MEDS ORDERED: LORazepam 2 MG in SYRINGE 1 ML IV STA (19:08)
--- NOTE | 2021-12-07 19:47 | Communication Note ---
Date of Service: December 07, 2021 Code [place] Called in response to patient staring to the right, mouth wide open, rigidity of extremities accompanied with a constant moaning. As arrived at bedside this has been ongoing for ~2-3 minutes. The patient could not follow commands and eyes where staring straight ahead with head turned to the right. Jaw was open and tight that you could not passively close, however mouth did close with tongue depressor on back of tongue. He would blink to threat and pupils were reactive to light. He unable to speak or follow commands, he was in the process of obtaining another IV at this time and did not appear to flinch or move away. Arms were extended and rigid. Patient was given 2 mg IV Ativan with immediate break of the above. He came back to midline and was able to speak and is without any confusion and neurologically without deficit. Labs were reviewed to include most recent glucose Medications were reviewed with no recent inciting addition Medication administered 2mg IV Ativan Patient states that his last episode that he can remember was around 2016. Patient was evaluated in April by Neurology with his history of seizure like disorder with working diagnosis of PNES (pseudoseizure) or possibly epilepsy. He has not had this evaluation done. He is on evaluation in September 18 with Gabapentin, Topamax, Keppra, and appears his Lamictal 25mg PO for a week with transition to BID was discontinued in September admission for concern of weakness and balance. Overall medication should be discussed following this. As no neurological deficits as well as return back to baseline will not pursue further imaging at this time. Will not increase any of his medications at this time- follow and recommend review of medication with his specialist.
[2021-12-07] MEDS: allopurinoL 100 MG TAB PO SCH (21:30)
[2021-12-07] MEDS: GABAPENTIN 300 MG CAP PO SCH (21:30)
[2021-12-07] MEDS: ATORVASTATIN 40 MG TAB PO SCH (21:30)
[2021-12-08 07:17] LABS: Hematocrit (blood only) 35.5 % (40.1-51.0); Hemoglobin 10.9 g/dl (14.0-18.0); Mean Corpuscular Hemoglobin 27.4 pg (25.0-34.0); Mean Corpuscular Hgb Conc 30.7 g/dL (32.0-36.0); Mean Corpuscular Volume 89.2 fL (80.0-100.0); Mean Platelet Volume 10.5 fL (9.4-12.4); Platelet Count 146 K/uL (130-400); RDW Coefficient of Variation 14.5 % (11.5-14.5); RDW Standard Deviation 47.3 fL (36.4-46.3); Red Blood Count 3.98 M/uL (4.63-6.08); White Blood Count 4.22 K/ul (4.8-10.8)
[2021-12-08 07:31] LABS: INR 2.3 (0.9-1.1); Prothrombin Time 23.5 Seconds (9.0-12.0)
[2021-12-08] MEDS ORDERED: LORazepam 2 MG/1 ML VIAL ONE (08:38)
[2021-12-08] MEDS: INSULIN ASPART PER UNIT SC SCH ×4 (08:51→21:30)
--- NOTE | 2021-12-08 09:04 | Communication Note ---
Date of Service: December 08, 2021 ~830AM responded to code purple Patient was not responding to verbal or tactile stimulation. Vitals stable. Similar presentation to last night's code purple which considered pseudoseizure vs seizure like activity. Ordered 2mg IV Ativan. Within 1-2 minutes, patient mentation returned to baseline. Patient subjective: Feels mildly chilly. + headache. Upset about room placement and about care as he believes his shortness of breath is from pneumonia and that is not being addressed. Ordered and reviewed ecg. reviewed AM CBC, Hb stable. Added on CMP, Mg, and Phos.
[2021-12-08] MEDS: CARBIDOPA/LEVODOPA 25/100MG TAB PO SCH ×3 (09:41→21:10)
[2021-12-08] MEDS: FINASTERIDE 5 MG TAB PO SCH (09:41)
[2021-12-08] MEDS: FEXOFENADINE HCL 180 MG TAB PO SCH (09:41)
[2021-12-08] MEDS: predniSONE 10 MG TABLET PO SCH (09:42)
[2021-12-08] MEDS: FLUTICASONE FUROATE 100MCG 14 PUFFS/INHALER INH SCH (09:42)
[2021-12-08] MEDS: TOPIRAMATE 100 MG TAB PO SCH ×2 (09:42→21:09)
[2021-12-08] MEDS: UMECLIDINIUM/VILANTEROL 62.5/25MCG 7 PUFFS/INHALER INH SCH (09:42)
[2021-12-08] MEDS: levETIRAcetam 500 MG TAB PO SCH ×2 (09:42→21:11)
[2021-12-08] MEDS: POTASSIUM CHLORIDE CRTAB 20 MEQ TABCR PO SCH (09:42)
[2021-12-08] MEDS: SENNA 8.6 MG TAB PO SCH (09:42)
[2021-12-08] MEDS: LANTUS PER UNIT CHARGE SQ SCH (09:43)
[2021-12-08 09:45] LABS: Albumin Globulin Ratio 1.5 (0.9-2); Albumin Level 3.4 gm/dl (3.4-5.0); BUN Creatinine Ratio 21.8 (10-20); Bilirubin,Total 0.5 mg/dl (0.2-1.0); Calcium 8.6 mg/dl (8.5-10.1); Creatinine Clr Calc Pharmacy 71.7 ml/min; Est GFR (African American) 75.2 ml/min; Est GFR (Non-African American) 64.9 ml/min; Globulin 2.3 gm/dl (2.5-4.0); Magnesium 1.9 mg/dl (1.7-2.4); Phosphorus 3.1 mg/dl (2.5-4.9); Potassium 3.6 mmol/L (3.5-5.1); Total Protein 5.7 gm/dl (6.0-8.3)
--- NOTE | 2021-12-08 11:19 | Neurology Consultation ---
Date of Consultation December 08, 2021 Assessment & Plan (1) Seizure-like activity: (2) Parkinsonism: Plan 76-year-old male with a history of seizure-like episodes, negative EEG's, and an opinion rendered by [facility] neurology, epilepsy clinic, this past June that patient's episodes are nonepileptic in etiology. Patient had 2 seizure-like episodes occurring within the past 24 hours. These episodes occur in the context of recent treatment for pneumonia. He has also been taking topiramate and Keppra in what should be therapeutic dosages for seizure control. The topiramate has been prescribed for migraine. EEG completed this morning negative for epileptiform abnormalities. I do not think another head CT or brain MRI are immediately necessary. However, if he were to have another seizure-like episode would recommend a noncontrast CT of the head in that context. Patient should continue with topiramate 100 mg twice daily, Keppra 1000 mg twice daily. Continue with Sinemet 25/100 mg 3 times daily. Patient does not appear to have classic Parkinson's disease, however. Would plan on arranging outpatient ambulatory EEG monitoring, can be done locally, my clinic will assist after discharge. No further immediate recommendations. History of Present Illness Reason for Consultation: seizure like episode Requesting Physician: Hiram Bray MD Attending Physician: Daniel Easley DO History of Present Illness The patient is a 76-year-old male who is known to the neurology service, he was last seen by Nellie Yi PA-C, on September 22, 2021, July 14, 2021, [facility] neurology, epilepsy specialist on June 28, 2021, Nellie Yi on May 10, 2021, Dr. Sam during an admission to the [facility] in January 2021, and myself in November 2020. He has a history of interstitial lung disease. He has followed with [facility] rheumatology recently,, he is not felt to have rheumatoid arthritis or polymyositis. He has had episodes of weakness, falls, and shaking events that have been concerning for seizures. He has had normal EEGs previously and is not felt to have epilepsy. It has been recommended to potentially taper off of his Keppra after his last appointment with the epilepsy specialist at [facility] this past June. During his last appointment in our clinic with Nellie Yi, on September 22, 2021, he had been complaining of daily headache. He had also reported several episodes where he felt as if he was going to have a seizure but came out of it. He remains on gabapentin, topiramate, and Keppra. He is also on Sinemet for what has been felt to be parkinsonism. The patient had presented to the emergency department on December 06, 2021 complaining of shortness of breath, cough, recent pneumonia, finished a course of Levaquin recently. Was also found to have a lower GI bleed in has been seen by GI, plan for outpatient colonoscopy. His recent chest x-ray reportedly looks improved, shortness of breath potentially related to anemia versus congestive heart failure. Patient had an episode of staring, mouth wide open, rigid extremities, moaning last night, duration about 2 to 3 minutes, patient would not follow commands, eyes staring straight ahead with head turn to the right. He would blink to threat, pupils reactive to light, unable to speak or follow commands at that time. Patient had another similar episode this morning, code purple called, not responding to verbal or tactile stimulation, stable vitals at that point in time. Treated with 2 mg of lorazepam IV. Episode resolved within 1 to 2 minutes with return to baseline. Patient complained of feeling chilly at that time. Allergies Allergy/AdvReac Type Severity Reaction Status Date / Time Iodinated Contrast Media Allergy Severe Anaphylaxis Verified 12/06/21 23:01 shellfish derived Allergy Severe Anaphylaxis Verified 12/06/21 23:01 tamsulosin [From Flomax] Allergy Intermediate Itching Verified 12/06/21 23:01 Tetanus Vaccines and Toxoid Allergy Unknown Unknown Verified 12/06/21 23:01 Home Medications Medication Instructions Recorded Confirmed Type atorvastatin 40 mg tablet 40 mg PO HS 05/28/20 12/06/21 History fexofenadine 180 mg tablet 180 mg PO QAM 02/11/21 12/06/21 History (Karlee Allergy) allopurinol 100 mg tablet 100 mg QPM 04/10/21 12/06/21 History finasteride 5 mg tablet 5 mg PO QAM 04/28/21 12/06/21 History levetiracetam 500 mg tablet 1,000 mg PO BID 06/30/21 12/06/21 History (Keppra) insulin aspart U-100 100 unit/mL See Rx Instructions .Route 07/08/21 12/06/21 Rx (3 mL) subcutaneous pen (Novolog .COMPLEX #0 mL Flexpen U-100 Insulin aspart) topiramate 100 mg tablet (Topamax) 100 mg PO BID 30 days #60 tabs 07/12/21 12/06/21 Rx cholecalciferol (vitamin D3) 50 4,000 unit PO HS 07/14/21 12/06/21 History mcg (2,000 unit) capsule (Vitamin D3) prednisone 10 mg tablet 10 mg PO QAM 07/14/21 12/06/21 History insulin glargine 100 unit/mL (3 20 unit subcut BID 07/26/21 12/06/21 History mL) subcutaneous pen (Lantus Solostar U-100 Insulin) acetaminophen 325 mg tablet 650 mg PO Q4H PRN pain #30 tabs 08/04/21 12/06/21 Rx aspirin 81 mg tablet,delayed 81 mg PO QAM #30 tabs 08/04/21 12/06/21 Rx release fluticasone fur. 100 mcg-umeclid 1 inh inhalation QAM #60 ea 09/06/21 12/06/21 Rx 62.5 mcg-vilant 25 mcg inhalat.powder (Trelegy Ellipta) albuterol sulfate 90 mcg/actuation 2 puff inhalation Q4H PRN 09/27/21 12/06/21 History aerosol inhaler (Ventolin HFA) Shortness Of Breath Or Wheezing polyethylene glycol 3350 17 17 g PO BID PRN Constipation 10/04/21 12/06/21 History gram/dose oral powder (Miralax) carbidopa 25 mg-levodopa 100 mg 1 tab PO TID 11/24/21 12/06/21 History tablet dulaglutide 1.5 mg/0.5 mL 1.5 mg subcut WK 11/24/21 12/06/21 History subcutaneous pen injector (Trulicity) furosemide 20 mg tablet 20 mg PO QAM 11/24/21 12/06/21 History gabapentin 300 mg capsule 300 mg PO HS 11/24/21 12/06/21 History gabapentin 300 mg capsule 600 mg PO QAM 11/24/21 12/06/21 History magnesium 250 mg tablet 250 mg PO QAM 11/24/21 12/06/21 History potassium chloride 20 mEq 20 meq PO QAM 11/24/21 12/06/21 History tablet,extended release(part/cryst) (Klor-Con M) sennosides 8.6 mg tablet (Senokot) 17.2 mg PO QAM 11/24/21 12/06/21 History warfarin 5 mg tablet 5 mg PO 5XWK 11/24/21 12/06/21 History warfarin 7.5 mg tablet 7.5 mg PO 2XWK 11/24/21 12/06/21 History Patient History Medical History Acute dehydration Acute left-sided muscle weakness Anemia CAD (coronary artery disease) Cerebrovascular accident Current use of shelter anticoagulation Dehydration Depression Diabetes Dizziness AZUL (dyspnea on exertion) Elevated troponin Fall Fall Fall Generalized weakness Headache Hypervolemia Hypoxia Lower back pain Nasal congestion Non-ST elevation MS (NSTEMI) Non-sustained ventricular tachycardia Retrosternal chest pain Rheumatoid arthritis Stroke-like symptom 12/2019, w/ blurry vision and dysarthria. mild R sided wkness. attending outpatient physical therapy w/ good improvement in strength (5+/5 strength of all 4 extremities as of 05/28/20) Syncope Weakness Surgical History H/O hernia repair History of cholecystectomy History of fusion of cervical spine History of heart artery stent History of lung biopsy 2019 History of partial nephrectomy Family History Mother , age 87 of pulmonary issues Rheumatoid arthritis Father , in his mid 80s of a stroke Stroke Other Coronary heart disease Social History Smoking Status: Never smoker Second Hand Exposure: No; Hx Alcohol Use: No Hx Substance Use: No Preferred Language: Italian Communication Ability: Effective Hearing Ability: Hard of Hearing Sebd Teacher Required: No Beliefs That Will Affect Care: None marital status: / Current Living Situation: Alone Current Living Situation Comment: lives alone in a one story house in [place] current occupational status: retired 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 How many Children do You have: 2 How many Children do You have Comment: son Other Information That Helps Us Care for You: No Feels Safe at Home: Yes Safety Concerns: Feels Safe At This Time Assistive Devices: Walker Review of Systems Constitutional: + chills; no fever Eyes: no blind spots and no diplopia Ear, Nose, Mouth, Throat: + hearing loss Respiratory: + cough and + dyspnea Cardiovascular: no chest pain and no palpitations Gastrointestinal: + blood in stools Genitourinary: no dysuria Musculoskeletal: + muscle weakness Integumentary: no rash Neurologic: as per Subjective / HPI and + seizure-like activity Psychiatric: no depression and no anxiety Hematologic / Lymphatic: + easy bruising Exam (Neuro) Constitutional: well developed and well nourished; no acute distress Eyes: normal visual [place] by confrontation, PERRL, normal accommodation and EOM intact bilaterally; no fundoscopic abnormality, no nystagmus and no papilledema Cardiovascular: Vessels: normal carotid upstroke; no carotid bruit Neurologic: Oriented to:: Person, Place and Time Memory: Short Term Intact and Remote Intact Attention: Span Intact and Concentration Intact Language: Naming Objects and Repeating Phrases Speech Fluency: negative Dysarthria Speech Aphasia: negative Aphasia Fund of Knowledge: Current Events, Past History and Vocabulary Cranial Nerves: Normal II (Visual [place] full to confrontation, visual acuity normal), III, IV, (Pupils equal round reactive to light and accommodation, eye movements normal), V (Facial sensation intact), VII (There is no facial droop or weakness), VIII (Hearing intact), IX, X (Palate elevates to midline), XI (Shoulder shrug intact) and XII (Tongue protrudes to midline) Motor Strength: Normal Lower Extremities and Normal Upper Extremities; negative Pronator Drift Motor Tone: Normal Lower Extremities and Normal Upper Extremities Muscle Bulk/Involuntary Movements: No Involuntary Movements; negative Muscle Atrophy Sensation: Light Touch Intact, Pain/Temperature Intact, Vibration Intact and Proprioception Intact Coordination: Normal; negative Limited Balance, Dysdiadochokinesia, Finger-Nose Abnormal or Heel-Patel Abnormal Deep Tendon Reflexes: Rt Triceps: 2+, Lt Triceps: 2+, Rt Biceps: 2+, Lt Biceps: 2+, Rt Brachioradialis: 2+, Lt Brachioradialis: 2+, Rt Patellar: 2+, Lt Patellar: 2+, Rt Ankle: 2+ and Lt Ankle: 2+ Special Tests: negative Babinski Present Gait: Normal Station and Gait Results & Data ([facility]) Vital Signs (Past 12 Hours) Vital Signs Temp Pulse Pulse Resp BP Pulse Ox O2 Del Method 12/08/21 07:16 36.5 C 70 16 129/76 98 Room Air 12/08/21 06:00 72 12/08/21 05:50 67 12/08/21 05:40 61 12/08/21 05:30 67 12/08/21 05:20 60 12/08/21 05:01 60 12/08/21 04:50 58 L 12/08/21 04:40 56 L 12/08/21 04:31 68 12/08/21 04:20 60 12/08/21 04:10 94 12/08/21 04:00 96 12/08/21 03:50 77 95 12/08/21 03:40 70 94 12/08/21 03:30 71 16 95 12/08/21 03:20 61 19 95 12/08/21 03:10 59 L 17 91 12/08/21 03:00 67 17 94 12/08/21 02:50 66 17 93 12/08/21 02:40 65 18 94 12/08/21 02:30 59 L 17 95 12/08/21 02:20 68 5 L 92 12/08/21 02:10 65 18 92 12/08/21 02:00 57 L 18 92 12/08/21 01:50 60 13 93 12/08/21 01:40 58 L 21 94 12/08/21 01:30 56 L 18 98 12/08/21 01:20 70 19 96 12/08/21 01:10 75 21 96 12/08/21 01:00 88 22 12/08/21 00:50 81 20 12/08/21 00:40 56 L 16 12/08/21 00:30 69 17 12/08/21 00:20 74 10 L 12/08/21 00:10 72 10 L 12/08/21 00:00 64 17 12/07/21 23:50 64 11 L 12/07/21 23:40 77 19 12/07/21 23:30 69 0 L 12/07/21 23:20 64 16 12/07/21 23:19 108 H 12/08/21 01:09 15 Laboratory Results WBC 4.22, hemoglobin 10.9, hematocrit 35.5, MCV 89.2, platelet count 146, sodium 140, potassium 3.6, BUN 24, creatinine 1.10, glucose 118, calcium 8.6, magnesium 1.9, AST 15, ALT 6 Diagnostic Findings Chest x-ray completed on December 06 revealed bibasilar opacities, increased since prior exam, findings may reflect pneumonia or atelectasis. CT of the head completed November 09, 2021 was negative for hemorrhage, mass-effect, or acute process. Brain MRI completed May 20, 2021 revealed mild chronic microvascular ischemic disease as well as a few old punctate cerebellar lacunar infarcts as well as a few punctate foci of susceptibility artifact within the cerebellar hemisphere. Findings unchanged compared previous MRI done in January 2021. I did independently review these images as well. No foci of restricted diffusion. I was able to identify the punctate foci of susceptibility artifact within the cerebellum, 1 within the right cerebellar hemisphere, the other within the left. I was able to appreciate a chronic right cerebellar lacunar infarct as well. Thin sections through the hippocampal regions were also obtained, seizure protocol, no evidence of mesial temporal sclerosis. There is no hydrocephalus. An EEG completed at [facility] January 21, 2020 was normal, no epileptiform abnormalities. An EEG completed this morning was negative for epileptiform abnormalities. Coding Level of Care Code 99745 Initial Inpt Care Lvl 3 Diagnoses Seizure-like activity R56.9 Parkinsonism G20
--- NOTE | 2021-12-08 11:29 | Cardiology Progress Note ---
Date of Service December 08, 2021 Assessment & Plan (1) Lower GI bleed: (2) Aortic valve replaced: (3) PAF (paroxysmal atrial fibrillation): Plan I reviewed Mr. Bradford's chart. His hgb is stable. As he did not receive a transfusion per the hospitalist's note, the initial 8.8 g hgb on admission may have been in error. Per discussion with GI, Mr. Bradford will not likely have his scope for about 4 weeks to allow time for recovery from pneumonia, assuming he does not develop any major bleeding in that time. I would recommend he resume his warfarin with goal INR 2-3 in the mean time. He can also resumed his aspirin Admission and Anticipated Discharge Date Admission Date: December 07, 2021 Subjective Exam deferred a patient was in the middle of an EEG. Results & Data ([facility]) Vital Signs (Past 12 Hours) Vital Signs Temp Pulse Pulse Resp BP Pulse Ox O2 Del Method 12/08/21 07:16 36.5 C 70 16 129/76 98 Room Air 12/08/21 06:00 72 12/08/21 05:50 67 12/08/21 05:40 61 12/08/21 05:30 67 12/08/21 05:20 60 12/08/21 05:01 60 12/08/21 04:50 58 L 12/08/21 04:40 56 L 12/08/21 04:31 68 12/08/21 04:20 60 12/08/21 04:10 94 12/08/21 04:00 96 12/08/21 03:50 77 95 12/08/21 03:40 70 94 12/08/21 03:30 71 16 95 12/08/21 03:20 61 19 95 12/08/21 03:10 59 L 17 91 12/08/21 03:00 67 17 94 12/08/21 02:50 66 17 93 12/08/21 02:40 65 18 94 12/08/21 02:30 59 L 17 95 12/08/21 02:20 68 5 L 92 12/08/21 02:10 65 18 92 12/08/21 02:00 57 L 18 92 12/08/21 01:50 60 13 93 12/08/21 01:40 58 L 21 94 12/08/21 01:30 56 L 18 98 12/08/21 01:20 70 19 96 12/08/21 01:10 75 21 96 12/08/21 01:00 88 22 12/08/21 00:50 81 20 12/08/21 00:40 56 L 16 12/08/21 00:30 69 17 12/08/21 00:20 74 10 L 12/08/21 00:10 72 10 L 12/08/21 00:00 64 17 12/07/21 23:50 64 11 L 12/07/21 23:40 77 19 12/07/21 23:30 69 0 L 12/08/21 01:09 15
--- NOTE | 2021-12-08 11:55 | Electroencephalogram ---
EEG Procedure Note Date of Service December 08, 2021 Start / End Times Start Time: 10:27 AM End Time: 10:47 AM Referring Physician Britton Sheikh MD History Recurrent seizure-like episodes Home Medication List Medication Instructions Recorded Confirmed Type atorvastatin 40 mg tablet 40 mg PO HS 05/28/20 12/06/21 History fexofenadine 180 mg tablet 180 mg PO QAM 02/11/21 12/06/21 History (Karlee Allergy) allopurinol 100 mg tablet 100 mg QPM 04/10/21 12/06/21 History finasteride 5 mg tablet 5 mg PO QAM 04/28/21 12/06/21 History levetiracetam 500 mg tablet 1,000 mg PO BID 06/30/21 12/06/21 History (Keppra) insulin aspart U-100 100 unit/mL See Rx Instructions .Route 07/08/21 12/06/21 Rx (3 mL) subcutaneous pen (Novolog .COMPLEX #0 mL Flexpen U-100 Insulin aspart) topiramate 100 mg tablet (Topamax) 100 mg PO BID 30 days #60 tabs 07/12/21 12/06/21 Rx cholecalciferol (vitamin D3) 50 4,000 unit PO HS 07/14/21 12/06/21 History mcg (2,000 unit) capsule (Vitamin D3) prednisone 10 mg tablet 10 mg PO QAM 07/14/21 12/06/21 History insulin glargine 100 unit/mL (3 20 unit subcut BID 07/26/21 12/06/21 History mL) subcutaneous pen (Lantus Solostar U-100 Insulin) acetaminophen 325 mg tablet 650 mg PO Q4H PRN pain #30 tabs 08/04/21 12/06/21 Rx aspirin 81 mg tablet,delayed 81 mg PO QAM #30 tabs 08/04/21 12/06/21 Rx release fluticasone fur. 100 mcg-umeclid 1 inh inhalation QAM #60 ea 09/06/21 12/06/21 Rx 62.5 mcg-vilant 25 mcg inhalat.powder (Trelegy Ellipta) albuterol sulfate 90 mcg/actuation 2 puff inhalation Q4H PRN 09/27/21 12/06/21 History aerosol inhaler (Ventolin HFA) Shortness Of Breath Or Wheezing polyethylene glycol 3350 17 17 g PO BID PRN Constipation 10/04/21 12/06/21 History gram/dose oral powder (Miralax) carbidopa 25 mg-levodopa 100 mg 1 tab PO TID 11/24/21 12/06/21 History tablet dulaglutide 1.5 mg/0.5 mL 1.5 mg subcut WK 11/24/21 12/06/21 History subcutaneous pen injector (Trulicity) furosemide 20 mg tablet 20 mg PO QAM 11/24/21 12/06/21 History gabapentin 300 mg capsule 300 mg PO HS 11/24/21 12/06/21 History gabapentin 300 mg capsule 600 mg PO QAM 11/24/21 12/06/21 History magnesium 250 mg tablet 250 mg PO QAM 11/24/21 12/06/21 History potassium chloride 20 mEq 20 meq PO QAM 11/24/21 12/06/21 History tablet,extended release(part/cryst) (Klor-Con M) sennosides 8.6 mg tablet (Senokot) 17.2 mg PO QAM 11/24/21 12/06/21 History warfarin 5 mg tablet 5 mg PO 5XWK 11/24/21 12/06/21 History warfarin 7.5 mg tablet 7.5 mg PO 2XWK 11/24/21 12/06/21 History Inpatient Medication List Acetaminophen (Acetaminophen 325 Mg Tab) 650 mg PO Q4H PRN PRN Reason: pain Stop: 01/06/22 03:26 Last Admin: 12/07/21 03:48 Dose: 650 mg Documented By: KATHERIN Allopurinol (Allopurinol 100 Mg Tab) 100 mg PO QPM KIRSTEN Stop: 01/06/22 20:59 Last Admin: 12/07/21 21:30 Dose: 100 mg Documented By: LONNIE Atorvastatin Calcium (Atorvastatin 40 Mg Tab) 40 mg PO HS KIRSTEN Stop: 01/06/22 20:59 Last Admin: 12/07/21 21:30 Dose: 40 mg Documented By: LONNIE Carbidopa/Levodopa (Carbidopa/Levodopa 25/100mg Tab) 1 tab PO TID KIRSTEN Stop: 01/06/22 08:59 Last Admin: 12/08/21 09:41 Dose: 1 tab Documented By: Admin: 12/07/21 21:29 Dose: 1 tab Documented By: Admin: 12/07/21 14:04 Dose: 1 tab Documented By: Admin: 12/07/21 09:55 Dose: 1 tab Documented By: ASHIA Fexofenadine HCl (Fexofenadine Hcl 180 Mg Tab) 180 mg PO QAM [facility] Stop: 01/06/22 08:59 Last Admin: 12/08/21 09:41 Dose: 180 mg Documented By: Admin: 12/07/21 09:55 Dose: 180 mg Documented By: ASHIA Finasteride (Finasteride 5 Mg Tab) 5 mg PO QAM [facility] Stop: 01/06/22 08:59 Last Admin: 12/08/21 09:41 Dose: 5 mg Documented By: Admin: 12/07/21 09:54 Dose: 5 mg Documented By: ASHIA Fluticasone Furoate (Fluticasone Furoate 100mcg 14 Puffs/Inhaler) 1 puffs INH DAILY KIRSTEN Stop: 01/06/22 08:59 Last Admin: 12/08/21 09:42 Dose: 1 puffs Documented By: Admin: 12/07/21 09:48 Dose: 1 puffs Documented By: ASHIA Gabapentin (Gabapentin 300 Mg Cap) 300 mg PO HS [facility] Stop: 01/06/22 20:59 Last Admin: 12/07/21 21:30 Dose: 300 mg Documented By: LONNIE Insulin Aspart (Insulin Aspart Per Unit) 0 units SC ACHS [facility] Stop: 01/06/22 07:29 Last Admin: 12/08/21 08:51 Dose: Not Given Documented By: Admin: 12/07/21 22:22 Dose: Not Given Documented By: LONNIE Co-signed By: GRETEL Admin: 12/07/21 18:06 Dose: 4 units Documented By: ASHIA Co-signed By: ONIEL Admin: 12/07/21 12:15 Dose: Not Given Documented By: Admin: 12/07/21 08:22 Dose: Not Given Documented By: ASHIA Insulin Glargine (Lantus Per Unit Charge) 20 units SQ QAM KIRSTEN Stop: 01/06/22 08:59 Last Admin: 12/08/21 09:43 Dose: Not Given Documented By: Admin: 12/07/21 09:54 Dose: Not Given Documented By: ASHIA Levetiracetam (Levetiracetam 500 Mg Tab) 1,000 mg PO BID KIRSTEN Stop: 01/06/22 08:59 Last Admin: 12/08/21 09:42 Dose: 1,000 mg Documented By: Admin: 12/07/21 21:40 Dose: 1,000 mg Documented By: Admin: 12/07/21 09:53 Dose: 1,000 mg Documented By: ASHIA Potassium Chloride (Potassium Chloride Crtab 20 Meq Tabcr) 20 meq PO QAM KIRSTEN Stop: 01/06/22 08:59 Last Admin: 12/08/21 09:42 Dose: 20 meq Documented By: Admin: 12/07/21 09:52 Dose: 20 meq Documented By: ASHIA Prednisone (Prednisone 10 Mg Tablet) 10 mg PO QAM KIRSTEN Stop: 01/06/22 08:59 Last Admin: 12/08/21 09:42 Dose: 10 mg Documented By: Admin: 12/07/21 09:52 Dose: 10 mg Documented By: ASHIA Sennosides (Senna 8.6 Mg Tab) 17.2 mg PO QAM KIRSTEN Stop: 01/06/22 08:59 Last Admin: 12/08/21 09:42 Dose: 17.2 mg Documented By: Admin: 12/07/21 09:51 Dose: Not Given Documented By: ASHIA Topiramate (Topiramate 100 Mg Tab) 100 mg PO BID KIRSTEN Stop: 01/06/22 08:59 Last Admin: 12/08/21 09:42 Dose: 100 mg Documented By: Admin: 12/07/21 21:29 Dose: 100 mg Documented By: Admin: 12/07/21 09:50 Dose: 100 mg Documented By: ASHIA Umeclidinium/Vilanterol (Umeclidinium/Vilanterol 62.5/25mcg 7 Puffs/Inhaler) 1 puffs INH DAILY KIRSTEN Stop: 01/06/22 08:59 Last Admin: 12/08/21 09:42 Dose: 1 puffs Documented By: Admin: 12/07/21 09:48 Dose: 1 puffs Documented By: ASHIA Discontinued Medications Albuterol (Albut/Ipratrop 3mg/0.5mg Neb 3 Ml Vial) 3 ml INH NOW STA Stop: 12/06/21 21:28 Last Admin: 12/06/21 23:31 Dose: 3 ml Documented By: LIANA Albuterol (Albut/Ipratrop 3mg/0.5mg Neb 3 Ml Vial) Confirm Administered Dose 3 ml .ROUTE .ST-MED ONE Stop: 12/06/21 23:30 Last Admin: 12/06/21 23:32 Dose: Not Given Documented By: LIANA Furosemide (Furosemide 40 Mg/4 Ml Vial) 40 mg IV ONE ONE Stop: 12/07/21 00:13 Last Admin: 12/07/21 01:17 Dose: 40 mg Documented By: LIANA Lorazepam 2 mg/ Syringe 2 mls @ 2 mls/min IV NOW STA Stop: 12/07/21 19:09 Last Admin: 12/07/21 19:00 Dose: 2 mls/min Documented By: LONNIE Lorazepam (Lorazepam 2 Mg/1 Ml Vial) Confirm Administered Dose 2 mg .ROUTE .STK- MED ONE Stop: 12/07/21 19:01 Last Admin: 12/07/21 21:39 Dose: Not Given Documented By: LONNIE Lorazepam (Lorazepam 2 Mg/1 Ml Vial) Confirm Administered Dose 2 mg .ROUTE .[facility] ONE Stop: 12/08/21 08:39 Last Admin: 12/08/21 08:38 Dose: 2 mg Documented By: MICHAEL Potassium Chloride (Potassium Chloride Crtab 20 Meq Tabcr) 40 meq PO NOW STA Stop: 12/07/21 00:14 Last Admin: 12/07/21 01:17 Dose: 40 meq Documented By: LIANA Description This is a 21 electrode EEG with a single channel dedicated to limited EKG. The electrodes were placed in accordance with the International 10-20 system. There is a posterior dominant rhythm of 9 to 10 Hz which is symmetrically distributed and attenuates with eye opening. There is a normal anterior to posterior organization. Photic stimulation is unremarkable. Hyperventilation is not performed. There is a prominent symmetric beta rhythm. There is no focal slowing. There are no epileptiform abnormalities. There are no sleep changes. Interpretation Normal-appearing awake/drowsy EEG. Prominent beta rhythm likely due to recent administration of lorazepam. No epileptiform abnormalities. [facility] EEG Procedure Codes Indication for Procedure (1) Seizure-like activity: Neurology Neurology: 02181 EEG include record awake & drowsy
--- NOTE | 2021-12-08 12:46 | Hospitalist Progress Note ---
Date of Service December 08, 2021 Assessment & Plan (1) Lower GI bleed: Plan: 76 year old male w/ CAD s/p stent, rheumatoid arthritis, DM2, CKD3, ILD, Parkinson's, mechanical aortic valve and afib on warfarin, TIAs and CVA in 2019 who presented w/ dyspnea and BRBPR. 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 Neuro consulted. EEG normal. Plan is for outpatient ambulatory EEG. Continue home Keppra. Continue home topiramate for migraines Head CT if another episode Seizure precautions. Shortness of breath: Diagnosis of PNA in on 11/24/21 by [facility] ED/hospitalist consult per symptoms (afebrile. + SOB x several days. nonproductive cough. Home Pulse ox 90-93. plus cxr obtained by pcp the day prior. He is s/p 7 days of levofloxacin. Initial dxs considered: pneumonia (CAP vs aspiration), anemia, CHF exac (last echo EF>70. treated w/ IV lasix in ED), Cxr compared to 10/2021 shows slightly worsened bibasilar opacities. Though patient subjectively denies aspiration concerns, per chart review, 07/2021 speech therapist note w/ such concerns; "Most recent FEES on 12/08/20: Not possible to prevent aspiration during oral intake. Diffusely impaired swallow. Most episodes of aspiration were silent. Per Care Alert: Patient refuses any more swallowing assessments. Do not consult ASSISTANT [employer] PATHOLOGIST services." Bibasilar opacities: Chest CT w/o contrast ordered to evaluate atelectasis vs pneumonia. Deferring abx for now as he is saturating well on room air, clinically appears well, and the crisp basilar crackles on exam would not be inconsistent w/ atelectasis Lower GI bleed: Reports BRBPR x 3-4 days, 2-3 episodes each day. Hgb was 12 on 11/24, now down to 8.8 on admission, has since normalized to ~11 w/o transfusion - GI consulted: outpatient colonoscopy. Aortic valve replaced: Mechanical valve. Per 12/07/21 cardiology consult: goal INR 2.5-3.5. Per [facility] records, appears to be following INR 2-3; will need further clarification with outpatient [facility] lab. - Resuming home warfarin evening of 12/08/21. MWFSatSun 5mg nightly and 7.5mg/night on TuTh. Follow INR. - continue holding baby ASA until further clarification from cardiology CAD (coronary artery disease): Prior cath in 04/2021. - Hold ASA as above - Continue statin Diabetes: - Lantus plus SSI Chronic kidney disease, stage 3a: At baseline. Plan Diet, fluids: DM2. Adding aspiration precautions per review on 07/2021 speech therapy recs. ppx: resuming home warfarin code: full dispo: PCU Admission and Anticipated Discharge Date Admission Date: December 07, 2021 Supervising Physician Co-Signing Physician Notes I also saw the patient with the resident physician and confirmed peña portions of the history and physical examination. Upon our exam around noon, the patient is awake and oriented, although is somewhat drowsy which I suspect was secondary to a recent dose of lorazepam. He has no complaints at present. With some time, he does put together a fairly good history of his recent hospitalization and outpatient treatment. At present, he denies any chest pain or shortness of breath. He does note to be sleepy. Exam 136/77, 74, 20, 36.8, 95% on room air Heart regular rate and rhythm, auscultated rate mid 70s with out ectopy Lungs are clear in the upper [place], some crackles in the lower [place] although these improved with repeated respiratory cycles. Abdomen obese but nontender Data Hemoglobin 10.9, platelet count 146 INR 2.3 Sodium 140, potassium 3.6, BUN 24, creatinine 1.1 Phosphorus 3.1, magnesium 1.9 AST 15, ALT 6, alkaline phosphatase 47 Impression and plan Gastrointestinal bleed Hemoglobin has been stable and work-up was deferred as outpatient Resume warfarin Monitor CBC Dyspnea Intermittent dyspnea, etiology not quite clear Recently treated as an outpatient with Levaquin for pneumonia; x-ray here shows bibasilar opacities, which could simply represent atelectasis He is afebrile, maintaining adequate oxygenation on room air, and he does not seem to have any conversational dyspnea. He received some Lasix yesterday, he looks euvolemic today. Will hold off on antibiotics If dyspnea returns, CT chest without contrast to further delineate bibasilar (infiltrate versus atelectasis) Doubt PE since he was therapeutic on his warfarin, and he has no increased oxygen demand. Seizure-like activity Neurology consultation appreciated EEG as noted Continue topiramate and Keppra Continue Sinemet CT noncontrast of the head if recurrent seizure-like activities Would try Ativan 1 mg as needed instead of the 2 mg, as a 2 mg dose left him fairly sedated Atrial fibrillation, paroxysmal In sinus rhythm at present Cardiology consultation appreciated Additional per resident documentation We will continue to reassess during the day Subjective Pawan lorenzo was called last night for seizure-like activity. Pawan lorenzo was called this morning for similar presentation. Patient was see again later in the morning. He is conversing and expressing frustration about his care in the hospital because he feels that nothing is being done. He still has intermittent dyspnea. In the afternoon, plan (restart warfarin, watch INR, chest CT to evaluate bibasilar opacities, and monitor for further seizure-like activity was discussed with patient and he is agreeable to stay. Review of Systems Review of Systems: All systems reviewed & are unremarkable except as noted in HPI & below Physical Exam Physical Exam: Noon exam. General: Grossly A&O. NAD. Cooperative. HEENT: Atraumatic, normocephalic. EOMI. Dry mucous membranes. Pulm: Waller insp crackles (mild-mod) bibasilar. No wheezes. No respiratory distress. Cardiac: RRR, -mrg. No BLE edema. Abdominal: Nontender, nondistended, soft. Results & Data Results & Data ([facility]) Vital Signs (Past 12 Hours) Vital Signs Temp Pulse Pulse Resp BP BP Pulse Ox 12/08/21 11:10 16 96 12/08/21 11:00 66 24 12/08/21 11:00 141/76 H 12/08/21 10:50 22 12/08/21 10:45 159/82 H 12/08/21 10:45 61 28 H 12/08/21 10:40 66 19 12/08/21 10:30 62 13 12/08/21 10:30 140/76 12/08/21 10:20 71 27 H 12/08/21 10:15 120/84 12/08/21 10:15 65 19 12/08/21 10:10 65 15 85 L 12/08/21 10:00 67 14 92 12/08/21 10:00 136/77 12/08/21 09:50 47 H 12/08/21 09:46 108/67 12/08/21 09:46 16 96 12/08/21 09:40 8 L 95 12/08/21 09:37 77 22 96 12/08/21 09:15 131/75 12/08/21 09:15 63 22 97 12/08/21 09:10 65 20 96 12/08/21 09:00 66 22 97 12/08/21 09:00 171/81 H 12/08/21 08:50 69 21 99 12/08/21 08:45 62 17 98 12/08/21 08:45 149/84 H 12/08/21 08:40 67 18 97 12/08/21 08:36 73 26 H 98 12/08/21 08:36 141/84 H 12/08/21 08:30 243 H 38 H 12/08/21 08:20 25 H 12/08/21 08:10 68 19 12/08/21 08:00 67 19 12/08/21 07:50 65 12/08/21 07:40 63 12/08/21 07:30 64 12/08/21 07:20 73 12/08/21 07:14 71 12/08/21 07:14 129/76 12/08/21 07:10 60 12/08/21 07:00 77 12/08/21 06:50 63 12/08/21 06:30 61 12/08/21 06:20 60 12/08/21 07:16 36.5 C 70 16 129/76 98 12/08/21 06:00 72 12/08/21 05:50 67 12/08/21 05:40 61 12/08/21 05:30 67 12/08/21 05:20 60 12/08/21 05:01 60 12/08/21 04:50 58 L 12/08/21 04:40 56 L 12/08/21 04:31 68 12/08/21 04:20 60 12/08/21 04:10 94 12/08/21 04:00 96 12/08/21 03:50 77 95 12/08/21 03:40 70 94 12/08/21 03:30 71 16 95 12/08/21 03:20 61 19 95 12/08/21 03:10 59 L 17 91 12/08/21 03:00 67 17 94 12/08/21 02:50 66 17 93 12/08/21 02:40 65 18 94 12/08/21 02:30 59 L 17 95 12/08/21 02:20 68 5 L 92 12/08/21 02:10 65 18 92 12/08/21 02:00 57 L 18 92 12/08/21 01:50 60 13 93 12/08/21 01:40 58 L 21 94 12/08/21 01:30 56 L 18 98 12/08/21 01:20 70 19 96 12/08/21 01:10 75 21 96 12/08/21 01:00 88 22 12/08/21 00:50 81 20 12/08/21 01:09 15 O2 Del Method 12/08/21 11:10 12/08/21 11:00 12/08/21 11:00 12/08/21 10:50 12/08/21 10:45 12/08/21 10:45 12/08/21 10:40 12/08/21 10:30 12/08/21 10:30 12/08/21 10:20 12/08/21 10:15 12/08/21 10:15 12/08/21 10:10 12/08/21 10:00 12/08/21 10:00 12/08/21 09:50 12/08/21 09:46 12/08/21 09:46 12/08/21 09:40 12/08/21 09:37 12/08/21 09:15 12/08/21 09:15 12/08/21 09:10 12/08/21 09:00 12/08/21 09:00 12/08/21 08:50 12/08/21 08:45 12/08/21 08:45 12/08/21 08:40 12/08/21 08:36 12/08/21 08:36 12/08/21 08:30 12/08/21 08:20 12/08/21 08:10 12/08/21 08:00 12/08/21 07:50 12/08/21 07:40 12/08/21 07:30 12/08/21 07:20 12/08/21 07:14 12/08/21 07:14 12/08/21 07:10 12/08/21 07:00 12/08/21 06:50 12/08/21 06:30 12/08/21 06:20 12/08/21 07:16 Room Air 12/08/21 06:00 12/08/21 05:50 12/08/21 05:40 12/08/21 05:30 12/08/21 05:20 12/08/21 05:01 12/08/21 04:50 12/08/21 04:40 12/08/21 04:31 12/08/21 04:20 12/08/21 04:10 12/08/21 04:00 12/08/21 03:50 12/08/21 03:40 12/08/21 03:30 12/08/21 03:20 12/08/21 03:10 12/08/21 03:00 12/08/21 02:50 12/08/21 02:40 12/08/21 02:30 12/08/21 02:20 12/08/21 02:10 12/08/21 02:00 12/08/21 01:50 12/08/21 01:40 12/08/21 01:30 12/08/21 01:20 12/08/21 01:10 12/08/21 01:00 12/08/21 00:50 12/08/21 01:09 Resident Activity Tracking Resident Involvement: Resident Care Provided Care Provided: Adult Hospital Medicine
[2021-12-08] MEDS ORDERED: WARFARIN SOD 7.5 MG TAB PO ONE (21:00)
[2021-12-08] MEDS: allopurinoL 100 MG TAB PO SCH (21:09)
[2021-12-08] MEDS: GABAPENTIN 300 MG CAP PO SCH (21:09)
[2021-12-08] MEDS: ATORVASTATIN 40 MG TAB PO SCH (21:10)
--- NOTE | 2021-12-08 21:55 | CT Scan Report ---
CT chest diagnostic wo con CLINICAL HISTORY: evaluate bibasilar opacities TECHNIQUE: Multidetector row helical CT of the chest was performed. Coronal and sagittal reformations were obtained. Automated dose lowering techniques and/or adjustment according to patient size were u tilized for this exam. CT DOSE: 531.55 mGy.cm Comparison: Comparison is made to CT chest 01/09/2021 FINDINGS: Lungs and pleura: Atelectasis is seen in the lung bases. Diffuse tree in bud nodules are noted in the lower lungs. Bronchial wall thickening is seen in the lower lungs. There is a 5 mm nodule in the rig ht upper lobe (series 4 image 119). Heart and pericardium: Cardiomegaly is seen with biatrial enlargement. Mitral annular calcifications are seen and there is an aortic valvular replacement. Vessels: Severe atherosclerotic changes in the aorta and coronary arteries. Mediastinum and vamshi: Unremarkable. Chest wall and lower neck: Unremarkable. Abdomen: LAP-BAND is seen about the stomach. Patient is status post cholecystectomy. Bones: Degenerative changes in the thoracic spine. IMPRESSION: Innumerable tree-in-bud nodules are seen in the lower lungs with bronchial wall thickening, compatibl e with infectious/inflammatory process. Atelectasis noted in the lung bases. Follow-up to resolution is recommended. ACT 112: Negative or not required by law. Electronically signed by: Russell Sifuentes M.D. 12/08/2021 9:53 PM
--- NOTE | 2021-12-08 23:05 | Electrocardiogram Report ---
Test Reason : Blood Pressure : / mmHG Vent. Rate : 065 BPM Atrial Rate : 065 BPM P-R Int : 120 ms QRS Dur : 086 ms QT Int : 434 ms P-R-T Axes : 029 032 094 degrees QTc Int : 451 ms Poor data quality, interpretation may be adversely affected Sinus rhythm with Premature atrial complexes Nonspecific ST and T wave abnormality Abnormal ECG When compared with ECG of 24-NOV-2021 18:11, Premature atrial complexes are now Present Confirmed by Bhanu Mcdonald ([id number]) on 12/08/2021 11:05:17 PM Referred By: REFERRED SELF Confirmed By:Bhanu Mcdonald
[2021-12-09 06:39] LABS: Basophils # (auto) 0.03 K/uL (0-0.2); Basophils % (auto) 0.8 %; Eosinophils # (auto) 0.24 K/uL (0-0.50); Hematocrit (blood only) 38.3 % (40.1-51.0); Hemoglobin 11.9 g/dl (14.0-18.0); Immature Granulocytes # (auto) 0.04 K/uL (0.00-0.02); Lymphocytes # (auto) 0.92 K/uL (1.2-3.4); Lymphocytes % (auto) 23.1 %; Mean Corpuscular Hemoglobin 27.4 pg (25.0-34.0); Mean Corpuscular Hgb Conc 31.1 g/dL (32.0-36.0); Mean Corpuscular Volume 88.2 fL (80.0-100.0); Mean Platelet Volume 9.5 fL (9.4-12.4); Monocytes # (auto) 0.31 K/uL (0.24-0.82); Monocytes % (auto) 7.8 %; Neutrophils # (auto) 2.44 K/uL (1.4-6.5); Neutrophils % (auto) 61.3 %; Platelet Count 135 K/uL (130-400); RDW Coefficient of Variation 14.3 % (11.5-14.5); RDW Standard Deviation 46.1 fL (36.4-46.3); Red Blood Count 4.34 M/uL (4.63-6.08); White Blood Count 3.98 K/ul (4.8-10.8)
[2021-12-09 06:51] LABS: INR 1.9 (0.9-1.1); Partial Thromboplastin Ratio 1.3; Partial Thromboplastin Time 34.8 Seconds (21.0-31.0); Prothrombin Time 19.3 Seconds (9.0-12.0)
[2021-12-09 07:36] LABS: Albumin Globulin Ratio 1.5 (0.9-2); Albumin Level 3.5 gm/dl (3.4-5.0); BUN Creatinine Ratio 20.6 (10-20); Bilirubin,Total 0.7 mg/dl (0.2-1.0); Calcium 8.8 mg/dl (8.5-10.1); Creatinine Clr Calc Pharmacy 73.8 ml/min; Est GFR (African American) 77.7 ml/min; Est GFR (Non-African American) 67.1 ml/min; Globulin 2.4 gm/dl (2.5-4.0); Potassium 3.7 mmol/L (3.5-5.1); Total Protein 5.9 gm/dl (6.0-8.3)
--- NOTE | 2021-12-09 09:22 | Hospitalist Progress Note ---
Date of Service December 09, 2021 Assessment & Plan (1) Lower GI bleed: Plan: 76 year old male w/ CAD s/p stent, rheumatoid arthritis, DM2, CKD3, ILD, Parkinson's, mechanical aortic valve and afib on warfarin, TIAs and CVA in 2019 who presented w/ dyspnea and BRBPR. 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 -Neuro consulted. EEG normal. Plan is for outpatient ambulatory EEG. Continue home Keppra. Continue home topiramate for migraines -Patient had repeat episodes today-resolved without Ativan. Patient had already received Keppra, Topamax. Neurology following. -Post episode, patient complained of worsening abdominal pain. * CT abdomen pelvis without contrast, UA ordered. Awaiting results. * Consider head CT Shortness of breath -Diagnosis of PNA in on 11/24/21 by [facility] ED/hospitalist consult per symptoms (afebrile. + SOB x several days. nonproductive cough. Home Pulse ox 90-93. plus cxr obtained by pcp the day prior. He is s/p 7 days of levofloxacin. -Chest CT: Lower leg nodules with bronchial wall thickening, consistent with infectious/inflammatory process. Atelectasis also noted. * No antibiotic management indicated at this time. Continue to follow. Lower GI bleed Reports BRBPR x 3-4 days, 2-3 episodes each day. Hgb was 12 on 11/24, now down to 8.8 on admission, has since normalized to ~11 w/o transfusion * GI consulted: outpatient colonoscopy. Aortic valve replaced Mechanical valve. Per 12/07/21 cardiology consult: goal INR 2-3 per [facility] records, appears to be following INR 2-3. -Currently subtherapeutic at 1.9. * Continue holding baby ASA until further clarification from cardiology * Resuming warfarin per home regimen: 5 mg M,W,F,Sa,S at 1600, 7.5 mg T,Th. Trend INR until therapeutic. CAD (coronary artery disease) Prior cath in 04/2021. * Hold ASA as above * Continue statin Diabetes - Lantus plus SSI Chronic kidney disease, stage 3a: at baseline. Code: Full code Dispo: MedSurg FEN/GI: DM2/carb consistent (Soft bite-size) DVT Prophylaxis: Home warfarin regimen PT/OT: Consulted Consults: None Case management: Admission and Anticipated Discharge Date Admission Date: December 07, 2021 Supervising Physician Co-Signing Physician Notes Patient seen and examined with PGY-2 Dr. Waller. Agree with history, exam findings, assessment and plan of care as outlined. In brief, Mr. Bradford is a 76 year old male with history of CAD s/p PCI, RA, DM2, CKD, ILD, Parkinsons, mechanical aortic valve and afib (AC coumadin) admitted with dyspnea and BRBPR. Early this morning, was feeling well. However, after lunch a code purpule was called as he was shaking in the upper extremities, exhibiting stiffness in the arms and level of consciousness decreased. He remained hemodynamically stable. He is reporting lower abdominal pain. Did not improve following a bowel movement. Has not had any further blood in the stool. Denies dysuria. 1. Seizure-like activity. Consider PNES vs epilepsy vs atypical migraine. PRN 1mg Ativan for seizure like activity. EEG was unremarkable. Neuro consulted. Can do ambulatory EEG. Continue Keppra, topiramate. Can consider adding vimpat. 2. Lower abdominal pain. UA without signs of infection. CT Abdomen/Pelvis without signs of colitis, diverticulitis; appendix not seen clearly but no other signs of appendicitis. Lap band was again visualized to be in appropriate position. Unclear etiology. ?stool burden vs muscular strain. 2. Dyspnea. Completed 7 days of levofloxacin. ?aspiration vs fluid overload. 3. Lower GI bleed. Resolved. Can do colonoscopy as an outpatient. 4. CAD, heart failure. Euvolemic. Holding ASA due to bleed. Continue with statin. 5. Mechanical aortic valve. Goal INR 2-3 (reconciled with [facility] chart). Resumed warfarin yesterday. INR today 1.9. Dispo: pending clinical improvement, PT/OT eval. Subjective No acute events overnight. He reports some headache and fatigue. He also reports having a bowel movement this morning. He is unsure if it was bloody or not. Review of Systems Review of Systems: All systems reviewed & are unremarkable except as noted in HPI & below Physical Exam Physical Exam: General: Frail-appearing, alert, interactive, and in no acute distress. HEENT: Normocephalic, atraumatic. EOM intact. Good conjugate gaze. Nares patent. Moist mucosal membranes. Neck: Supple. No lymphadenopathy. Normal ROM. CV: Regular rate and rhythm. Normal S1 and S2. No murmurs gallops or rubs. Respiratory: Normal respiratory effort. Mild bibasilar crackles. No rhonchi or wheezes. Abdomen: Soft, nondistended abdomen. No bruits heard on auscultation. No tenderness to deep palpation. Extremities: Capillary refill <2 sec. 2+ dp equal bilaterally. No pedal edema. Neuro: Alert and oriented x3. Skin: Clean, dry, and intact. Bilateral ecchymosis across forearms. Otherwise no rashes or lesions. Results & Data Results & Data ([facility]) Vital Signs (Past 12 Hours) Vital Signs Temp Pulse Pulse Resp BP Pulse Ox O2 Del Method 12/09/21 08:14 36.6 C 61 14 144/72 H 98 Nasal Cannula 12/09/21 01:45 36.4 C L 68 16 111/69 92 Room Air 12/08/21 21:43 36.7 C 69 16 136/88 93 Room Air Resident Activity Tracking Resident Involvement: Resident Care Provided Care Provided: Adult [facility] Medicine
[2021-12-09] MEDS: INSULIN ASPART PER UNIT SC SCH ×4 (09:34→20:31)
[2021-12-09] MEDS: LANTUS PER UNIT CHARGE SQ SCH (09:35)
[2021-12-09] MEDS: FINASTERIDE 5 MG TAB PO SCH (09:37)
[2021-12-09] MEDS: FEXOFENADINE HCL 180 MG TAB PO SCH (09:37)
[2021-12-09] MEDS: SENNA 8.6 MG TAB PO SCH (09:37)
[2021-12-09] MEDS: POTASSIUM CHLORIDE CRTAB 20 MEQ TABCR PO SCH (09:37)
[2021-12-09] MEDS: predniSONE 10 MG TABLET PO SCH (09:37)
[2021-12-09] MEDS: CARBIDOPA/LEVODOPA 25/100MG TAB PO SCH ×3 (09:41→20:39)
[2021-12-09] MEDS: TOPIRAMATE 100 MG TAB PO SCH ×2 (09:41→20:40)
[2021-12-09] MEDS: levETIRAcetam 500 MG TAB PO SCH ×2 (09:41→20:40)
[2021-12-09] MEDS: FLUTICASONE FUROATE 100MCG 14 PUFFS/INHALER INH SCH (09:42)
[2021-12-09] MEDS: UMECLIDINIUM/VILANTEROL 62.5/25MCG 7 PUFFS/INHALER INH SCH (09:43)
[2021-12-09] MEDS ORDERED: POLYETHYLENE (MIRALAX) 17 GM PACK PO PRN (10:27)
[2021-12-09] MEDS: ACETAMINOPHEN 325 MG TAB PO PRN (12:08)
[2021-12-09] MEDS: GABAPENTIN 600 MG TAB PO SCH (12:09)
[2021-12-09] MEDS ORDERED: LORazepam 2 MG/1 ML VIAL ONE (13:45)
[2021-12-09 15:24] LABS: Appearance Urine Clear (Clear); Bilirubin Urine Negative (Negative); Blood Urine Negative (Negative); Color Urine Yellow; Glucose Urine UA Negative (Negative); Ketones Urine Negative (Negative); Leukocyte Esterase Urine Negative (Negative); Nitrite Urine Negative (Negative); Protein Urine Negative (Negative); Specific Gravity Urine 1.005 (1.000-1.030); Urobilinogen Urine Negative (Negative)
[2021-12-09] MEDS ORDERED: WARFARIN SOD 5 MG TAB PO SCH (16:00)
--- NOTE | 2021-12-09 17:07 | CT Scan Report ---
CT abd pelvis wo con CLINICAL HISTORY: lower abdominal pain TECHNIQUE: Helical axial images of the abdomen and pelvis were obtained. Automated dose lowering tech niques and/or adjustment according to patient size were utilized for this exam. This exam was perfor med without intravenous contrast. CT DOSE: 1005.47 mGy.cm COMPARISON: Comparison is made to CT abdomen pelvis 03/08/2021 FINDINGS: Lower chest: Interval worsening of tree in bud nodular densities in the right greater than left lowe r lobe. Liver: Unremarkable. No focal lesions are seen. Gallbladder and biliary tree: Patient is status post cholecystectomy. No intra- or extrahepatic bilia ry ductal dilation. Pancreas: Unremarkable, no focal lesions. Spleen: Unremarkable. Adrenals: Unremarkable. Kidneys and ureters: Unremarkable. Bladder: Unremarkable. Reproductive organs: Brachytherapy seeds are seen in the prostate. Bowel: The appendix is not definitely seen however no secondary signs of appendicitis are seen. A lap aroscopic band is seen about the stomach. Lymph nodes Retroperitoneal: Unremarkable. Pelvic: Unremarkable. Mesenteric: Unremarkable. Peritoneum: Normal. Vessels: Atherosclerotic calcifications are seen. Abdominal wall: Postsurgical changes are seen in the right inguinal canal. Bones: Degenerative changes in the visualized spine. IMPRESSION: No acute abnormalities are seen. ACT 112: Negative or not required by law. Electronically signed by: Russell Sifuentes M.D. 12/09/2021 5:06 PM
[2021-12-09] MEDS: allopurinoL 100 MG TAB PO SCH (20:39)
[2021-12-09] MEDS: ATORVASTATIN 40 MG TAB PO SCH (20:39)
[2021-12-09] MEDS: GABAPENTIN 300 MG CAP PO SCH (20:40)
--- NOTE | 2021-12-09 22:24 | Electrocardiogram Report ---
Test Reason : Blood Pressure : / mmHG Vent. Rate : 064 BPM Atrial Rate : 064 BPM P-R Int : 136 ms QRS Dur : 082 ms QT Int : 460 ms P-R-T Axes : 000 007 079 degrees QTc Int : 474 ms Poor data quality, interpretation may be adversely affected Normal sinus rhythm When compared with ECG of 06-DEC-2021 21:43, Premature atrial complexes are now Present Confirmed by Bhanu Mcdonald ([id number]) on 12/09/2021 10:24:42 PM Referred By: REFERRED SELF Confirmed By:Bhanu Mcdonald
[2021-12-10] MEDS: CARBIDOPA/LEVODOPA 25/100MG TAB PO SCH (07:04)
[2021-12-10] MEDS: FEXOFENADINE HCL 180 MG TAB PO SCH (07:04)
[2021-12-10] MEDS: UMECLIDINIUM/VILANTEROL 62.5/25MCG 7 PUFFS/INHALER INH SCH (07:05)
[2021-12-10] MEDS: FLUTICASONE FUROATE 100MCG 14 PUFFS/INHALER INH SCH (07:05)
[2021-12-10] MEDS: FINASTERIDE 5 MG TAB PO SCH (07:05)
[2021-12-10] MEDS: levETIRAcetam 500 MG TAB PO SCH (07:06)
[2021-12-10] MEDS: POTASSIUM CHLORIDE CRTAB 20 MEQ TABCR PO SCH (07:06)
[2021-12-10] MEDS: GABAPENTIN 600 MG TAB PO SCH (07:06)
[2021-12-10] MEDS: TOPIRAMATE 100 MG TAB PO SCH (07:07)
[2021-12-10] MEDS: predniSONE 10 MG TABLET PO SCH (07:07)
[2021-12-10] MEDS: SENNA 8.6 MG TAB PO SCH (07:08)
--- NOTE | 2021-12-10 07:39 | Hospitalist Progress Note ---
Date of Service December 10, 2021 Assessment & Plan (1) Lower GI bleed: Plan: 76 year old male w/ CAD s/p stent, rheumatoid arthritis, DM2, CKD3, ILD, Parkinson's, mechanical aortic valve and afib on warfarin, TIAs and CVA in 2019 who presented w/ dyspnea and BRBPR. 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 -Neuro consulted. EEG normal. Plan is for outpatient ambulatory EEG. Continue home Keppra. Continue home topiramate for migraines -Patient had repeat episodes today-resolved without Ativan. Patient had already received Keppra, Topamax. Neurology following. -Post episode, patient complained of worsening abdominal pain. * CT abdomen pelvis without contrast, UA ordered. Awaiting results. * Consider head CT Shortness of breath -Diagnosis of PNA in on 11/24/21 by [facility] ED/hospitalist consult per symptoms (afebrile. + SOB x several days. nonproductive cough. Home Pulse ox 90-93. plus cxr obtained by pcp the day prior. He is s/p 7 days of levofloxacin. -Chest CT: Lower leg nodules with bronchial wall thickening, consistent with infectious/inflammatory process. Atelectasis also noted. * No antibiotic management indicated at this time. Continue to follow. Lower GI bleed Reports BRBPR x 3-4 days, 2-3 episodes each day. Hgb was 12 on 11/24, now down to 8.8 on admission, has since normalized to ~11 w/o transfusion * GI consulted: outpatient colonoscopy. Aortic valve replaced Mechanical valve. Per 12/07/21 cardiology consult: goal INR 2-3 per [facility] records, appears to be following INR 2-3; will need further clarification with outpatient [facility] lab. -Target INR 2-3, on review of [facility] INR clinic notes. Currently infra-therapeutic at 1.9. * Continue holding baby ASA until further clarification from cardiology * Resuming warfarin per home regimen: 5 mg M,W,F,Sa,S at 1600, 7.5 mg T,Th. Trend INR until therapeutic. CAD (coronary artery disease) Prior cath in 04/2021. * Hold ASA as above * Continue statin Diabetes - Lantus plus SSI Chronic kidney disease, stage 3a: at baseline. Code: Full code Dispo: MedSurg FEN/GI: DM2/carb consistent (Soft bite-size) DVT Prophylaxis: Home warfarin regimen PT/OT: Consulted Consults: None Case management: Admission and Anticipated Discharge Date Admission Date: December 07, 2021 Subjective No acute events overnight. Results & Data Results & Data ([facility]) Vital Signs (Past 12 Hours) Vital Signs Temp Pulse Pulse Resp BP BP Pulse Ox 12/10/21 07:17 36.4 C L 67 16 118/74 98 12/10/21 02:59 36.5 C 67 18 114/54 L 95 12/09/21 23:28 63 12/09/21 23:17 36.5 C 65 17 112/69 95 12/09/21 20:30 12/09/21 20:10 36.5 C 69 18 118/69 94 O2 Del Method 12/10/21 07:17 Room Air 12/10/21 02:59 Room Air 12/09/21 23:28 12/09/21 23:17 Room Air 12/09/21 20:30 Room Air 12/09/21 20:10 Room Air
[2021-12-10 08:08] LABS: Partial Thromboplastin Ratio 1.2; Partial Thromboplastin Time 33.9 Seconds (21.0-31.0); Prothrombin Time 20.2 Seconds (9.0-12.0)
[2021-12-10] MEDS: LANTUS PER UNIT CHARGE SQ SCH (08:09)
[2021-12-10] MEDS: INSULIN ASPART PER UNIT SC SCH ×2 (08:09→12:41)
[2021-12-10] MEDS ORDERED: POLYETHYLENE (MIRALAX) 17 GM PACK PO SCH (09:00)
[2021-12-10] MEDS: ACETAMINOPHEN 325 MG TAB PO PRN (09:06)
[2021-12-10] MEDS ORDERED: WARFARIN SOD 5 MG TAB PO SCH (16:00)
--- NOTE | 2021-12-10 20:34 | Discharge Summary ---
Date of Service December 10, 2021 Admission HPI Per Admitting Provider 76y yo M who presents with increasing shortness of breath and bright red blood per rectum. Had been seen in ER in late October for PNA. Sent home on oral levofloxcin x 7 days. Had some stomach upset with it, but otherwise did ok. Saw PCP a few days ago who recommended patience on improving. Comes in today with increasing shortness of breath and dyspnea on exertion. Abdominal pain is improved, and not having emesis, but does report to me that he's had 3-4 days of bright red blood per rectum. Happening 2-3 times per day, and reports it is enough to stain the toilet bowl (as opposed to just some on the toilet paper). Admission Exam Per Admitting Provider Constitutional: WD/WN, vitals as above Eyes: EOM intact bilaterally; no conjunctival abnormality ENMT: external ear and nose normal, oropharynx normal Neck:L trachea midline, no thyromegaly normal visual inspection Respiratory: normal respiratory effort, lungs clear to auscultation no respiratory distress Cardiovascular: RRR, no murmur, no edema Gastrointestinal (Abdomen): Inspection/Auscultation: abdomen normal to inspection; abdomen not distended Percussion/Palpation: abdomen soft; abdomen nontender, no guarding and abdomen not rigid Musculoskeletal: no cyanosis or clubbing, extremities motor strength 5/5 Skin: no rashes, warm and dry Neurologic: moves all extremities and awake Psychiatric: Orientation: alert, oriented to person and cooperative Principal Diagnosis GI bleed Discharge Exam General: Well-appearing, alert, interactive, and in no acute distress. HEENT: Normocephalic, atraumatic. EOM intact. Good conjugate gaze. Nares patent. Moist mucosal membranes. Neck: Supple. No lymphadenopathy. Normal ROM. CV: Regular rate and rhythm. Normal S1 and S2. No murmurs gallops or rubs. Respiratory: Normal respiratory effort. Lungs clear to auscultation bilaterally, without crackles, rhonchi or wheezes. Abdomen: Soft, nondistended abdomen. No bruits heard on auscultation. No tenderness to deep palpation. Extremities: Capillary refill <2 sec. 2+ dp equal bilaterally. No pedal edema. Neuro: Alert and oriented x3. Skin: Clean, dry, and intact. Bilateral ecchymosis across forearms. Otherwise no rashes or lesions. Discharge Data Allergies Allergy/AdvReac Type Severity Reaction Status Date / Time Iodinated Contrast Media Allergy Severe Anaphylaxis Verified 12/06/21 23:01 shellfish derived Allergy Severe Anaphylaxis Verified 12/06/21 23:01 tamsulosin [From Flomax] Allergy Intermediate Itching Verified 12/06/21 23:01 Tetanus Vaccines and Toxoid Allergy Unknown Unknown Verified 12/06/21 23:01 Consultations 12/07/21 00:15 ED Decision to Admit Stat 12/07/21 03:27 Consult Cardiology Routine Consult Gastroenterology Routine 12/08/21 09:01 Consult Neurology Routine Ordered Studies 12/08/21 19:08 CT chest without contrast [CT chest diagnostic wo con] Routine 12/09/21 15:21 CT abd pelvis wo con Urgent Hospital Course (1) Lower GI bleed: -Patient presented with dyspnea, bright red blood in stool x4 days. Admitted for management of GI bleed, anemia. Lower GI bleed -GI consulted, EGD showed multiple nonbleeding duodenal ulcers. -Recommended outpatient colonoscopy. Anemia -Hemoglobin 8.8 on admission (baseline appears to be 12). -Hemoglobin normalized to around 11 without transfusion. Stop trending hemoglobin prior to discharge. Subtherapeutic INR -Warfarin initially held on admission due to GI bleed. Restarted 1 day later according to home regimen. -INR of 2.0 upon discharge Seizure-like activity -Patient had 2 episodes of witnessed seizure-like activity, with postictal confusion. -First episode on 12/08/2021 resolved after one-time administration of Ativan 1 mg. -Second episode the following day resolved without medical intervention. -Patient on home Keppra, Topamax. -Neurology consulted on 12/08/2021. EEG negative for abnormal brainwave activity. Recommended follow-up appointment outpatient for longer EEG screen. Dyspnea -Previously diagnosed with pneumonia 11/24/2021 status post levofloxacin x7 days. -Patient managed without antibiotics during this admission, as patient was afebrile, with normal WBC. Suspect dyspnea mostly atelectatic. -Patient improved with incentive spirometry. Was discharged saturating at 98% on room air. Mechanical aortic valve, CAD, CKD, diabetes: Managed according to chronic at home regimen. (2) Seizure-like activity: (3) Shortness of breath: (4) Weakness: Total Time Total Time Spent Total Time Spent (In Minutes): 60 Discharge Plan Discharge Items Patient Disposition: Home - Self-Care Reason For Visit: ANEMIA, LGIB, SHORTNESS OF BREATH Discharge Diagnosis: Lower GI bleed, anemia, shortness of breath Activity: Resume your previous activity Non-emergency contact: Primary Care Provider and Bag Machine Operator Call non-emergency contact if: you have any medication questions, your symptoms worsen, your pain is not controlled and your pain is worsening Follow-up/Referrals: Josh Gaspar MD [Primary Care Provider] - Diet: Regular Addtl Attending Provider Instructions: You were admitted to the hospital for blood in your stool and shortness of breath. You were evaluated by our GI specialists with an EGD, which found minimal bleeding. During your stay, you also had two episodes of seizure-like activity that was evaluated by our neurologist. There was no evidence of seizure activity seen on the EEG, a scan of your brainwave activity. Your condition improved over the following days and we now feel that you are ready to be discharged home A discharge summary will be sent to your primary care physician to ensure continuity of care. Please bring this discharge summary with you to your next office appointment so that your provider can review it at that time. Follow-up appointments: * Make a follow-up appointment with your PCP within the next week. It is very important that you follow up with them shortly after discharge from the hospital. * You should follow up with Florian HERRERA after your discharge. You should be contacted by their office to schedule an appointment. If you do not hear from them after 3 business days, you can contact them at [phone]. * You have been tentatively scheduled for an outpatient EEG, or a scan of your brainwaves, by Dr. Sheikh of [facility]. You should be contacted by their office to schedule an appointment. If you do not hear from them after 3 business days, you can contact his office at [phone]. Medications: Your medication list has been reviewed and reconciled upon discharge to ensure accuracy and continuity of care. An updated list of all your medications is included with your hospital discharge paperwork. Please review this list closely, and make note of any changes. Take your medications as instructed; do not skip a dose of your medicines. Make sure all of your doctors know every medicine you are taking (including [id number] medicines, vitamins, and supplements). Call your primary care provider before taking any new medicines (including xjlq-aqp-xhxltar medicines, vitamins, and supplements), because some of these may interact with your current medications, or may make your symptoms worse. Tell your primary care provider if you cannot afford your medications. CONTACT YOUR PRIMARY CARE PROVIDER if you experience any of the following: * Sudden weakness, or bright red blood in your stool. * Any episodes where you lose consciousness or feel lightheaded. * Difficulty following your treatment plan, or difficulty taking medications. CALL 911 OR GO TO THE EMERGENCY DEPARTMENT if you experience any of the following: * Sudden, severe abdominal pain or nausea/vomiting * Severe chest pain, or chest pain that radiates (moves) to your jaw or arm * Sudden, severe shortness of breath or difficulty breathing Thank you for allowing us to participate in your care. Pending Studies at Discharge: No Stand-Alone Forms: My [facility], Smoking Cessation Medications and DC Order Prescriptions: Continued topiramate [Topamax] 100 mg tablet 100 mg PO BID 30 Days Qty: 60 5RF Trelegy Ellipta 100-62.5-25 mcg blister with device 1 inh inhalation QAM Qty: 60 5RF prednisone 10 mg tablet 10 mg PO QAM cholecalciferol (vitamin D3) [Vitamin D3] 50 mcg (2,000 unit) capsule 4,000 unit PO HS atorvastatin 40 mg tablet 40 mg PO HS fexofenadine [Kralee Allergy] 180 mg Tablet 180 mg PO QAM finasteride 5 mg tablet 5 mg PO QAM acetaminophen 325 mg Tablet 650 mg PO Q4H PRN (Reason: pain) Qty: 30 0RF Rx Instructions: OTC aspirin 81 mg Tablet,Delayed Release (Dr/Ec) 81 mg PO QAM Qty: 30 0RF Rx Instructions: OTC albuterol sulfate [Ventolin HFA] 90 mcg/actuation HFA aerosol inhaler 2 puff INHALATION Q4H PRN (Reason: Shortness Of Breath Or Wheezing) allopurinol 100 mg tablet 100 mg QPM levetiracetam [Keppra] 500 mg tablet 1,000 mg PO BID insulin aspart U-100 [Novolog Flexpen U-100 Insulin] 100 unit/mL (3 mL) insulin pen See Rx Instructions .ROUTE .COMPLEX Qty: 0 0RF Rx Instructions: supplemental scale for meal-time coverage and bed-time coverage. insulin glargine [Lantus Solostar U-100 Insulin] 100 unit/mL (3 mL) insulin pen 20 unit SUBCUT BID polyethylene glycol 3350 [Miralax] 17 gram/dose powder 17 g PO BID PRN (Reason: Constipation) furosemide 20 mg tablet 20 mg PO QAM Trulicity 1.5 mg/0.5 mL pen injector 1.5 mg SUBCUT WK Rx Instructions: saturdays carbidopa-levodopa 25-100 mg tablet 1 tab PO TID Rx Instructions: TAKE 1 TABLET BY MOUTH THREE TIMES A DAY gabapentin 300 mg capsule 300 mg PO HS gabapentin 300 mg Capsule 600 mg PO QAM sennosides [Senokot] 8.6 mg tablet 17.2 mg PO QAM warfarin 7.5 mg Tablet 7.5 mg PO 2XWK Rx Instructions: tuesdays and in evening warfarin 5 mg tablet 5 mg PO 5XWK Rx Instructions: take in the evening of sun,sun,sun,sat,sun potassium chloride [Klor-Con M20] 20 mEq tablet,ER particles/crystals 20 meq PO QAM magnesium 250 mg Tablet 250 mg PO QAM Discharge Orders: Discharge Order (Routine); Ordered 12/10/21 Ordered By: Coby Waller Admission Data Admit Date/Time: 12/07/21 01:52 Attending Provider: Aron Diamond Admit Provider: Elvis Bell Primary Care Provider: Josh Gaspar Other Providers: Elvis Bell ; Moses Chau ; Debi Llanos ; Britton Sheikh Other Interventions: Discharge Summary Assessment (RN) Last Done: 12/10/21 12:28 Supervising Physician Co-Signing Physician Notes Patient seen and examined with PGY-2 Dr. Waller. Agree with history, exam findings, assessment and plan of care as outlined. In brief, Mr. Bradford is a 76 year old male with history of CAD s/p PCI, RA, DM2, CKD, ILD, Parkinsons, mechanical aortic valve and afib (AC coumadin) admitted with dyspnea and BRBPR. Today, feels well. Ponce that the seizure-like activity episodes from the prior two days were because of the lights in the emergency department room and being cold. He feels well and is eager to be discharged. [place] 1. Seizure-like activity. Consider PNES vs epilepsy vs atypical migraine. PRN 1mg Ativan for seizure like activity. EEG was unremarkable. Neuro consulted. Can do ambulatory EEG. Continue Keppra, topiramate. 2. Lower abdominal pain. Resolved. UA without signs of infection. CT Abdomen/Pelvis without signs of colitis, diverticulitis; appendix not seen clearly but no other signs of appendicitis. Lap band was again visualized to be in appropriate position. 2. Dyspnea. Completed 7 days of levofloxacin. Resolved. 3. Lower GI bleed. Resolved. Can do colonoscopy as an outpatient for further evaluation. 4. CAD, heart failure. Euvolemic. Held ASA due to bleed, but can restart on discharge since the bleeding has resolved. . Continue with statin. 5. Mechanical aortic valve. Goal INR 2-3 (reconciled with [facility] chart). Resumed warfarin yesterday. INR in the therapeutic range, continue with home dosing. Dispo: discharge home today. I personally spent 35 minutes discharge planning for this patient. Resident Activity Tracking Resident Involvement: Resident Care Provided Care Provided: Adult Hospital Medicine
[2021-12-10] MEDS ORDERED: DOCUSATE SODIUM 100 MG CAP PO SCH (21:00)
[2021-12-13] MEDS ORDERED: WARFARIN SOD 7.5 MG TAB PO SCH (16:00)
== END 2021-12-10 12:53 | disposition home or self-care (01) | DRG 378 ==
LOC: ED 21:02 → SUATTDRO 12-07 01:52 → EDINP 12-07 01:52 → 2S 12-09 15:47
DX: J84.9 Interstitial pulmonary disease, unspecified; D64.9 Anemia, unspecified; Z88.8 Allergy status to other drugs, medicaments and biological substances; K92.2 Gastrointestinal hemorrhage, unspecified; Z88.7 Allergy status to serum and vaccine; G20 Parkinson's disease; N18.31 Chronic kidney disease, stage 3a; I25.10 Atherosclerotic heart disease of native coronary artery without angina pectoris; I25.2 Old myocardial infarction; G40.909 Epilepsy, unspecified, not intractable, without status epilepticus; Z79.01 Long term (current) use of anticoagulants; J98.11 Atelectasis; Z91.041 Radiographic dye allergy status; Z79.4 Long term (current) use of insulin; Z95.2 Presence of prosthetic heart valve; Z98.1 Arthrodesis status; E11.42 Type 2 diabetes mellitus with diabetic polyneuropathy; E11.22 Type 2 diabetes mellitus with diabetic chronic kidney disease; Z68.34 Body mass index [BMI] 34.0-34.9, adult; J96.11 Chronic respiratory failure with hypoxia; E66.9 Obesity, unspecified; I48.0 Paroxysmal atrial fibrillation; K26.9 Duodenal ulcer, unspecified as acute or chronic, without hemorrhage or perforation

== ENCOUNTER 2021-12-30 14:13 | Inpatient (IN) ==
[2021-12-30] MEDS ORDERED: SODIUM CHLORIDE 0.9% 500 ML IV ONE (14:51)
[2021-12-30] MEDS ORDERED: MoRPHine SULFATE 2 MG/ML CARP IV STA (15:28)
[2021-12-30] MEDS ORDERED: ONDANSETRON INJ 2 MG/ML 2 ML VIAL IV STA (15:28)
--- NOTE | 2021-12-30 15:35 | Emergency Department Note ---
History of Present Illness General Chief complaint: Knee Injury/Pain Stated complaint: FALL, KNEE PAIN Time Seen by Provider: 12/30/21 14:48 History of Present Illness Maximum Pain Intensity: 7 This is a 76-year-old male with a history of CKD, diabetes, valve replacement in the past, neuropathy, on warfarin, parkinsonism, interstitial lung disease, who presents via EMS for injuries sustained secondary to a fall that occurred earlier today. Patient recently moved into the [facility] and had some boxes on the ground. He states that he tripped over 1 of these boxes and fell between a box and a piece of furniture injuring his left knee, left hip, left lower back, and the left side of his neck. He was unable to ambulate after the injury occurred, and called the emergency response team at the [facility] and was transported via EMS. Of note per EMS, patient's oxygen dropped into the low 90s and was placed on 2 L via nasal cannula with response. He did not hit his head and remembers all of the events, denies any loss of consciousness. Denies any difficulty breathing, abdominal pain, nausea, vomiting, numbness tingling or weakness in his upper or lower extremities, or syncope. He generally ambulates with a walker in his living quarters. Still drives occasionally and has an assistant professor of theater for grocery shopping daily activities. Has a history of lumbar surgery with rods and screws, is concerned he may have damaged something. This is the patient's fifth visit to the emergency department this year for falls. Admitted for pneumonia 1 month ago. Home Medications Medication Instructions Recorded Confirmed Type atorvastatin 40 mg tablet 40 mg PO HS 05/28/20 12/29/21 History fexofenadine 180 mg tablet 180 mg PO QAM 02/11/21 12/29/21 History (Karlee Allergy) allopurinol 100 mg tablet 100 mg QPM 04/10/21 12/29/21 History levetiracetam 500 mg tablet 1,000 mg PO BID 06/30/21 12/29/21 History (Keppra) insulin aspart U-100 100 unit/mL See Rx Instructions .Route 07/08/21 12/29/21 Rx (3 mL) subcutaneous pen (Novolog .COMPLEX #0 mL Flexpen U-100 Insulin aspart) cholecalciferol (vitamin D3) 50 4,000 unit PO HS 07/14/21 12/29/21 History mcg (2,000 unit) capsule (Vitamin D3) prednisone 10 mg tablet 10 mg PO QAM 07/14/21 12/29/21 History insulin glargine 100 unit/mL (3 20 unit subcut BID 07/26/21 12/29/21 History mL) subcutaneous pen (Lantus Solostar U-100 Insulin) acetaminophen 325 mg tablet 650 mg PO Q4H PRN pain #30 tabs 08/04/21 12/29/21 Rx aspirin 81 mg tablet,delayed 81 mg PO QAM #30 tabs 08/04/21 12/29/21 Rx release fluticasone fur. 100 mcg-umeclid 1 inh inhalation QAM #60 ea 09/06/21 12/29/21 Rx 62.5 mcg-vilant 25 mcg inhalat.powder (Trelegy Ellipta) albuterol sulfate 90 mcg/actuation 2 puff inhalation Q4H PRN 09/27/21 12/29/21 History aerosol inhaler (Ventolin HFA) Shortness Of Breath Or Wheezing polyethylene glycol 3350 17 17 g PO BID PRN Constipation 10/04/21 12/29/21 Hi story gram/dose oral powder (Miralax) carbidopa 25 mg-levodopa 100 mg 1 tab PO TID 11/24/21 12/29/21 History tablet dulaglutide 1.5 mg/0.5 mL 1.5 mg subcut WK 11/24/21 12/29/21 History subcutaneous pen injector (Trulicity) furosemide 20 mg tablet 20 mg PO QAM 11/24/21 12/29/21 History gabapentin 300 mg capsule 600 mg PO QAM 11/24/21 12/29/21 History magnesium 250 mg tablet 250 mg PO QAM 11/24/21 12/29/21 History potassium chloride 20 mEq 20 meq PO QAM 11/24/21 12/29/21 History tablet,extended release(part/cryst) (Klor-Con M) sennosides 8.6 mg tablet (Senokot) 17.2 mg PO QAM 11/24/21 12/29/21 History warfarin 5 mg tablet 5 mg PO 5XWK 11/24/21 12/29/21 History warfarin 7.5 mg tablet 7.5 mg PO 2XWK 11/24/21 12/29/21 History finasteride 5 mg tablet 5 mg PO QAM #30 tabs 12/12/21 12/29/21 Rx cyclobenzaprine 5 mg tablet 2.5 mg PO HS PRN muscle spasm #90 12/29/21 12/29/21 Rx tabs gabapentin 300 mg capsule See Rx Instructions .Route 12/29/21 12/29/21 Rx .COMPLEX #270 caps topiramate 100 mg tablet (Topamax) 100 mg PO BID 30 days #180 tabs 12/29/21 12/29/21 Rx Allergies Allergy/AdvReac Type Severity Reaction Status Date / Time Iodinated Contrast Media Allergy Severe Anaphylaxis Verified 12/29/21 15:21 shellfish derived Allergy Severe Anaphylaxis Verified 12/29/21 15:21 tamsulosin [From Flomax] Allergy Intermediate Itching Verified 12/29/21 15:21 Tetanus Vaccines and Toxoid Allergy Unknown Unknown Verified 12/29/21 15:21 Past Med/Surg History Medical History Acute dehydration Acute left-sided muscle weakness Anemia CAD (coronary artery disease) Cerebrovascular accident Chronic respiratory failure with hypoxia 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 mild R sided wkness. attending outpatient physical therapy w/ good improvement in strength (5+/5 strength of all 4 extremities as of 05/28/20) Syncope Weakness Weakness Surgical History H/O hernia repair History of cholecystectomy History of fusion of cervical spine History of heart artery stent History of lung biopsy 2019 History of partial nephrectomy Family History Mother , age 87 of pulmonary issues Rheumatoid arthritis Father , in his mid 80s of a stroke Stroke Other Coronary heart disease Social History Smoking Status: Never smoker Second Hand Exposure: No; Hx Alcohol Use: No Hx Substance Use: No Preferred Language: Indonesian Communication Ability: Effective Hearing Ability: Hard of Hearing 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 and A total of 10 systems reviewed and were otherwise negative Physical Exam Vital Signs Vital Signs - 24 hr 12/30/21 14:23 12/30/21 15:34 12/30/21 15:34 Temperature 98.2 F Temperature Source Oral Pulse Rate 66 58 L Pulse Rate [Apical] 63 Pulse Rate from SpO2 Sensor Respiratory Rate 18 18 18 Respiratory Effort / Characteristics Non-Labored Non-Labored Spontaneous Respiratory Depth Normal Normal Respiratory Pattern Regular Blood Pressure 118/69 Blood Pressure [Right Arm] 162/89 H Blood Pressure Mean 85 Blood Pressure Mean [Right Arm] 113 Blood Pressure Position Semi-fowlers Blood Pressure Position [Right Arm] Pulse Oximetry 97 94 94 Oxygen Delivery Method Room Air Room Air Room Air Sepsis Recent Fever Within 48 Hours No Sepsis New/Unexplained Change in Mental Status No Sepsis Action Taken by Nursing No Action Required 12/30/21 17:06 12/30/21 17:06 12/30/21 18:00 Temperature Temperature Source Pulse Rate 67 51 L Pulse Rate [Apical] Pulse Rate from SpO2 Sensor 51 L Respiratory Rate 22 16 Respiratory Effort / Characteristics Respiratory Depth Respiratory Pattern Blood Pressure 120/66 120/66 131/89 Blood Pressure [Right Arm] Blood Pressure Mean 84 84 103 Blood Pressure Mean [Right Arm] Blood Pressure Position Blood Pressure Position [Right Arm] Pulse Oximetry 92 97 Oxygen Delivery Method Room Air Sepsis Recent Fever Within 48 Hours Sepsis New/Unexplained Change in Mental Status Sepsis Action Taken by Nursing 12/30/21 19:10 12/30/21 20:20 12/30/21 21:30 Temperature Temperature Source Pulse Rate Pulse Rate [Apical] 58 L 55 L 59 L Pulse Rate from SpO2 Sensor Respiratory Rate 18 18 16 Respiratory Effort / Characteristics Non-Labored Spontaneous Non-Labored Spontaneous Respiratory Depth Normal Normal Respiratory Pattern Regular Regular Blood Pressure Blood Pressure [Right Arm] 121/62 115/69 134/67 Blood Pressure Mean Blood Pressure Mean [Right Arm] 81 84 89 Blood Pressure Position Blood Pressure Position [Right Arm] Lying Semi-fowlers Semi-fowlers Pulse Oximetry 98 98 94 Oxygen Delivery Method Room Air Room Air Room Air Sepsis Recent Fever Within 48 Hours Sepsis New/Unexplained Change in Mental Status Sepsis Action Taken by Nursing CONSTITUTIONAL: Well developed, well nourished, in pain secondary to left hip and knee HEAD: Normocephalic, atraumatic. No Mckinney's sign or raccoon eyes. No bony skull deformities. EYES: PERRL, conjunctivae normal, extraocular muscles intact. EARS/NOSE/MOUTH/THROAT: External ears no injury, no hemotympanum, no drainage. Nose with no injury or epistaxis. No dental abnormalities. No oral injuries. Tongue midline. NECK: No spinous process tenderness. Left-sided muscular tenderness, placed in c-collar. RESPIRATORY: Breathing unlabored and symmetric. Lungs clear to auscultation bilaterally. CARDIOVASCULAR: Regular rate and rhythm. No murmurs, rubs, or gallops. CHEST: Left lateral chest wall tenderness, no crepitus. ABDOMEN: Normal bowel sounds. Soft, nontender. No masses or ecchymosis. No rigidity. MUSCULOSKELETAL: Moves bilateral upper extremities at all joints without pain or difficulty. Pelvis stable, nontender. Left lower extremity: Tenderness over the greater trochanter region. Significant tenderness and soft tissue swelling generalized about the left knee. Patient able to move all toes. Back: No thoracic or sacral midline tenderness noted. There is some mild lumbar tenderness extending into the left paraspinal musculature SKIN: [place], warm, dry. Intact. NEUROLOGIC: Alert and oriented to person place and situation. GCS 15. CN II-XII intact. Strength 5+ in bilateral upper and lower extremities. Sensation intact in bilateral upper and lower extremities although diminished in lower extremities due to neuropathy.. PSYCHIATRIC: Appropriate. Normal affect. No repetitive questioning Course Administered Medications Discontinued Medications Sodium Chloride (Nss) 500 mls @ 999 mls/hr IV .Q31M ONE Stop: 12/30/21 15:21 Last Infusion: 12/30/21 16:18 Dose: 0 mls/hr Documented By: Admin: 12/30/21 15:43 Dose: 999 mls/hr Documented By: MT Morphine Sulfate (Morphine Sulfate 2 Mg/Ml Carp) 2 mg IV NOW STA Stop: 12/30/21 15:29 Last Admin: 12/30/21 15:39 Dose: 2 mg Documented By: MT Ondansetron HCl (Ondansetron Inj 2 Mg/Ml 2 Ml Vial) 4 mg IV NOW STA Stop: 12/30/21 15:29 Last Admin: 12/30/21 15:38 Dose: 4 mg Documented By: MT Medical Decision Making Differential Diagnosis Fracture, dislocation, contusion, subluxation, intracranial, intrathoracic, intra-abdominal, neurovascular, compartment syndrome, among other pathology. Laboratory Data Result diagrams: 12/30/21 15:45 12/30/21 15:45 Lab Results 12/30/21 12/30/21 12/30/21 Range/Units 15:45 15:45 15:45 WBC 4.78 L (4.8-10.8) K/ul RBC 3.97 L (4.63-6.08) M/uL Hgb 11.1 L (14.0-18.0) g/dl Hct 34.2 L (40.1-51.0) % MCV 86.1 (80.0-100.0) fL MCH 28.0 (25.0-34.0) pg MCHC 32.5 (32.0-36.0) g/dL RDW Std Deviation 46.6 H (36.4-46.3) fL RDW Coeff of Lianne 14.8 H (11.5-14.5) % Plt Count 160 (130-400) K/uL MPV 10.1 (9.4-12.4) fL Immature Gran % (Auto) 1.0 % Neut % (Auto) 73.6 % Lymph % (Auto) 19.2 % Ramsey % (Auto) 4.8 % Eos % (Auto) 1.0 % Baso % (Auto) 0.4 % Neut # (Auto) 3.51 (1.4-6.5) K/uL Lymph # (Auto) 0.92 L (1.2-3.4) K/uL Ramsey # (Auto) 0.23 L (0.24-0.82) K/uL Eos # (Auto) 0.05 (0-0.50) K/uL Baso # (Auto) 0.02 (0-0.2) K/uL Immature Gran # (Auto) 0.05 H (0.00-0.02) K/uL PT 23.1 H (9.0-12.0) Seconds INR 2.3 H (0.9-1.1) Sodium 139 (136-145) mmol/L Potassium 3.7 (3.5-5.1) mmol/L Chloride 108 H (98-107) mmol/L Carbon Dioxide 23 (21-32) mmol/L Anion Gap 8 (3-11) BUN 25 H (6-23) mg/dl Creatinine 1.14 (0.6-1.4) mg/dl Est Cr Clr Drug Dosing 70.1 ml/min Est GFR ( Amer) 72.0 ml/min Est GFR (Non-Af Amer) 62.1 ml/min BUN/Creatinine Ratio 21.9 H (10-20) Glucose 154 H (70-99(Fasting)) mg/dl Calcium 9.3 (8.5-10.1) mg/dl Total Bilirubin 0.5 (0.2-1.0) mg/dl AST 25 (13-39) U/L ALT 18 (7-52) U/L Alkaline Phosphatase 54 (34-104) U/L Total Protein 6.2 (6.0-8.3) gm/dl Albumin 3.7 (3.4-5.0) gm/dl Globulin 2.5 (2.5-4.0) gm/dl Albumin/Globulin Ratio 1.5 (0.9-2) SARS-CoV-2, RNA, NAAT (NEGATIVE) 12/30/21 Range/Units 21:55 WBC (4.8-10.8) K/ul RBC (4.63-6.08) M/uL Hgb (14.0-18.0) g/dl Hct (40.1-51.0) % MCV (80.0-100.0) fL MCH (25.0-34.0) pg MCHC (32.0-36.0) g/dL RDW Std Deviation (36.4-46.3) fL RDW Coeff of Lianne (11.5-14.5) % Plt Count (130-400) K/uL MPV (9.4-12.4) fL Immature Gran % (Auto) % Neut % (Auto) % Lymph % (Auto) % Ramsey % (Auto) % Eos % (Auto) % Baso % (Auto) % Neut # (Auto) (1.4-6.5) K/uL Lymph # (Auto) (1.2-3.4) K/uL Ramsey # (Auto) (0.24-0.82) K/uL Eos # (Auto) (0-0.50) K/uL Baso # (Auto) (0-0.2) K/uL Immature Gran # (Auto) (0.00-0.02) K/uL PT (9.0-12.0) Seconds INR (0.9-1.1) Sodium (136-145) mmol/L Potassium (3.5-5.1) mmol/L Chloride (98-107) mmol/L Carbon Dioxide (21-32) mmol/L Anion Gap (3-11) BUN (6-23) mg/dl Creatinine (0.6-1.4) mg/dl Est Cr Clr Drug Dosing ml/min Est GFR ( Amer) ml/min Est GFR (Non-Af Amer) ml/min BUN/Creatinine Ratio (10-20) Glucose (70-99(Fasting)) mg/dl Calcium (8.5-10.1) mg/dl Total Bilirubin (0.2-1.0) mg/dl AST (13-39) U/L ALT (7-52) U/L Alkaline Phosphatase (34-104) U/L Total Protein (6.0-8.3) gm/dl Albumin (3.4-5.0) gm/dl Globulin (2.5-4.0) gm/dl Albumin/Globulin Ratio (0.9-2) SARS-CoV-2, RNA, NAAT NEGATIVE (NEGATIVE) Imaging Data Radiologist's Impression: Abdomen/Pelvis CT 12/30/21 15:24 CT abd pelvis wo con CLINICAL HISTORY: fall, left pelvis/hip/low back pain, hx lumb surg TECHNIQUE: Helical axial images of the abdomen and pelvis were obtained. Automated dose lowering techniques and/or adjustment according to patient size were utilized for this exam. This exam was performed without intravenous contrast. COMPARISON: Comparison is made to CT abdomen pelvis 12/09/2021 FINDINGS: Lower chest: For findings above the diaphragm, please see CT chest performed same day. Liver: Unremarkable. No focal lesions are seen. Gallbladder and biliary tree: Patient is status post cholecystectomy. No intra- or extrahepatic biliary ductal dilation. Pancreas: Unremarkable, no focal lesions. Spleen: Unremarkable. Adrenals: Unremarkable. Kidneys and ureters: Nonobstructive nephrolithiasis is seen. Bladder: Unremarkable. Reproductive organs: Brachytherapy seeds are seen in the prostate. Bowel: Diverticulosis is seen without evidence of diverticulitis. A lap band is noted. Lymph nodes Retroperitoneal: Unremarkable. Pelvic: Unremarkable. Mesenteric: Unremarkable. Peritoneum: Normal. Vessels: Atherosclerotic calcifications are seen. Abdominal wall: Postsurgical changes of hernia surgery are seen in the right inguinal region. Diastases of the musculature is noted. Bones: Posterior fixation hardware is seen in the lumbar spine with heterotopic ossification noted. No acute fractures are seen. IMPRESSION: 1. No acute abnormalities and in particular no evidence of acute fractures. 2. Additional chronic findings as above. ACT 112: Negative or not required by law. Electronically signed by: Russell Sifuentes M.D. 12/30/2021 4:[address] 12/30/21 15:[address] DOSE: 3778.57 mGy.cm HISTORY: fall, L neck pain TECHNIQUE: Multiaxial CT images of the cervical spine were performed and reformatted in the sagittal and coronal plane without the use of contrast. A dose lowering technique was utilized adhering to the principles of ALARA. COMPARISON: Cervical spine CT 11/09/2021. FINDINGS: No fractures. No subluxation. Prevertebral soft tissues and the C1-C2 interval are intact. No pneumothorax. A partially visualized left mastoid effusion is again noted and remains unchanged. Anterior cervical discectomy and fusion at C4-C5, unchanged. The left C2-C5 facets remain fused. Moderate disc space narrowing at C3-C4 and C5-C6. IMPRESSION: No fractures within the cervical spine. ACT 112: Negative or not required by law. Electronically signed by: Jc Che M.D. 12/30/2021 4:[address] 12/30/21 15:24 CT chest diagnostic wo con CLINICAL HISTORY: Fall, left lateral rib tenderness TECHNIQUE: Multidetector row helical CT of the chest was performed. Coronal and sagittal reformations were obtained. Automated dose lowering techniques and/or adjustment according to patient size were utilized for this exam. Comparison: Comparison is made to CT chest 11/28/2021 FINDINGS: Lungs and pleura: Atelectasis versus scarring is seen in the dependent portions of the lungs. Diffuse lower lobe predominant groundglass opacities are seen. Bronchial wall thickening in the left lower lobe has improved from prior exam. However numerous tree-in-bud nodules are noted in the left lower lobe, somewhat increased in conspicuity from the prior exam. Postsurgical changes are again seen about the lingula and lower lobe. Heart and pericardium: Aortic valvular calcifications are seen. Mitral annular calcifications are noted. Vessels: Severe atherosclerotic changes in the aorta and coronary arteries. Mediastinum and vamshi: Unremarkable. Chest wall and lower neck: Unremarkable. Abdomen: For findings below the diaphragm, please refer to CT of the abdomen dated the same. Bones: Degenerative changes in the thoracic spine. Anterior cervical fixation hardware and median sternotomy wires are noted. No mohsen rib fractures are seen. Anterolateral left rib irregularity is unchanged from prior exam and is considered less likely represent nondisplaced fracture. IMPRESSION: 1. No evidence of acute fracture. 2. Redemonstration of previously noted groundglass and tree-in-bud nodules favoring the lower lungs, favoring a infectious/inflammatory process. Tree-in-bud nodularity in the left lower lobe is more conspicuous than in the prior exam. Follow-up to resolution is recommended. ACT 112: Negative or not required by law. Electronically signed by: Russell Sifuentes M.D. 12/30/2021 4:[address] 12/30/21 15:24 CT head/brain wo con CLINICAL HISTORY: fall, on warfarin Technique: Contiguous axial CT images of the head were acquired from the base of the skull to the vertex without intravenous contrast administration. Images were viewed in brain, subdural and bone windows. Automated dose lowering techniques and/or adjustment according to patient size were utilized for this exam. Comparison: Comparison is made to CT head 11/09/2021 Findings: Areas of decreased attenuation are present in the periventricular and subcortical white matter bilaterally consistent with small vessel ischemic disease. Generalized cerebral atrophy with commensurate enlargement of the ventricles, sulci, and cisterns is also present. There is no acute intracranial hemorrhage or evidence of acute territorial infarction. No shift of the midline structures, mass effect, or extra-axial abnormalities are shown. Atherosclerotic calcifications are present in the intracranial segments of the internal carotid arteries. Opacification of left mastoid air cells is noted. The orbits appear normal. There are no acute fractures of the calvaria or scalp swelling. Impression: No acute intracranial hemorrhage, skull fractures, or scalp swelling. Redemonstration of left effusion ACT 112: Negative or not required by law. Electronically signed by: Russell Sifuentes M.D. 12/30/2021 4:09 PM Knee X-Ray 12/30/21 15:24 XR knee LT 3V, XR tibia fibula LT 2V CLINICAL HISTORY: fall, diffuse tender and swelling TECHNIQUE: 3 views of the left knee were obtainedand 2 views of the left tibia and fibula were obtained. Comparison: None available at the time of this dictation. FINDINGS: There is no evidence of an acute fracture. Degenerative changes are seen most prominent in the patellofemoral joint. No joint effusion is seen. Vascular calcifications are noted. IMPRESSION: No evidence of acute osseous injury. ACT 112: Negative or not required by law. Electronically signed by: Russell Sifuentes M.D. 12/30/2021 5:[address] 12/30/21 15:[address] DOSE: HISTORY: fall, low back pain, history lumbar surgery TECHNIQUE: Multiaxial CT images of the lumbar spine were performed and reformatted in the sagittal and coronal plane without the use of contrast. A dose lowering technique was utilized adhering to the principles of ALARA. COMPARISON: Lumbar spine CT 11/11/2020. FINDINGS: Posterior decompression fusion from L3 through S1 with pedicle screws and rods. The hardware appears intact. No fracture or subluxation within the lumbar spine. The visualized sacrum is maintained. No significant central canal stenosis by CT technique. Paravertebral soft tissues are unremarkable. IMPRESSION: 1. No acute fracture or subluxation within the lumbar spine. 2. Postoperative changes as described above. ACT 112: Negative or not required by law. Electronically signed by: Jc Che M.D. 12/30/2021 4:22 PM Tibia/Fibula X-Ray 12/30/21 15:24 XR knee LT 3V, XR tibia fibula LT 2V CLINICAL HISTORY: fall, diffuse tender and swelling TECHNIQUE: 3 views of the left knee were obtainedand 2 views of the left tibia and fibula were obtained. Comparison: None available at the time of this dictation. FINDINGS: There is no evidence of an acute fracture. Degenerative changes are seen most prominent in the patellofemoral joint. No joint effusion is seen. Vascular calcifications are noted. IMPRESSION: No evidence of acute osseous injury. ACT 112: Negative or not required by law. Electronically signed by: Russell Sifuentes M.D. 12/30/2021 5:[address] 12/30/21 18:20 CT knee LT wo con CLINICAL HISTORY: fall, unable to bear weight TECHNIQUE: Multidetector row helical CT of the left knee was performed without intravenous contrast. Coronal and sagittal reformations were obtained. Automated dose lowering techniques and/or adjustment according to patient size were utilized for this examination. CT DOSE: 186.74 mGy.cm Comparison: Comparison is made to left knee radiograph 12/30/2021 FINDINGS: The osseous structures are without fracture or dislocation. The joint spaces are maintained. No joint effusion is seen. Mild soft tissue stranding is seen in the suprapatellar region. IMPRESSION: No evidence of acute fracture or dislocation. Mild soft tissue stranding is noted in the anterior superior tissues. ACT 112: Negative or not required by law. Electronically signed by: Russell Sifuentes M.D. 12/30/2021 7:20 PM [facility] Narrative 76-year-old male with a complex medical history, frequent falls, on warfarin, presents with injuries sustained secondary to another fall that occurred after tripping over a box in his independent living facility. He is complaining of pain in the left neck, left lower back, left hip, and left knee. Patient does appear to be in a significant amount of pain associated with the left knee. Additional physical exam findings as above. Placed in c-collar initially. Patient has a history of anaphylaxis to CT contrast, so discussed risks and benefits with patient as well as ED attending Dr. Vazquez. Imaging of the head neck chest abdomen pelvis was obtained without contrast as fracture was the highest probability. Low-dose morphine for pain control. Monitored on pulse oximetry. Left knee and left tibia/fibula also ordered. Labs Stable anemia hemoglobin 11.1 INR 2.3, subtherapeutic CT head and neck are negative for acute fracture. Chest CT is negative for fracture although there is evidence of slight progression of potential infectious etiology in the left lower lobe. Patient was admitted 1 month ago for pneumonia. Patient noted to be coughing intermittently. CT abdomen pelvis is negative for injury. X-rays of the knee and tibia/fibula negative for fracture. Attempted to ambulate the patient and he was unable to bear any weight on the left knee and was extremely unsteady, high fall risk, so CT of the knee was obtained demonstrating soft tissue stranding over the anterior knee although no fracture was identified. Given patient's significant ambulatory dysfunction, severe fall risk, unable to discharge him back to independent living. 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 Case was discussed with Dr. Mims who will admit for further management, may require treatment for potential progression of pneumonia in addition to PT/OT and placement until he can safely ambulate. Of note this is the patient's 5th visit to the ED this year for falls. May require additional assistance beyond independent living. Impression & Plan Ambulatory dysfunction, Contusion of knee, left, Contusion of hip, left, Fall from other slipping, tripping, or stumbling, Cervical strain, Left lower lobe pneumonia Discharge Plan Visit Data Chief Complaint: Knee Injury/Pain Stated Complaint: FALL, KNEE PAIN ED Provider: Luis Vazquez ED Midlevel Provider: Avinash Oneill Discharge Problem: Ambulatory dysfunction, Contusion of knee, left, Contusion of hip, left, Fall from other slipping, tripping, or stumbling, Cervical strain, Left lower lobe pneumonia Patient Disposition: Admitted As Inpatient Condition: Fair Prescriptions Prescriptions: No Action Trelegy Ellipta 100-62.5-25 mcg blister with device 1 inh inhalation QAM Qty: 60 5RF finasteride 5 mg tablet 5 mg PO QAM Qty: 30 3RF prednisone 10 mg tablet 10 mg PO QAM cyclobenzaprine 5 mg tablet 2.5 mg PO HS PRN (Reason: muscle spasm) Qty: 90 3RF topiramate [Topamax] 100 mg tablet 100 mg PO BID 30 Days Qty: 180 4RF gabapentin 300 mg capsule See Rx Instructions .ROUTE .COMPLEX Qty: 270 4RF Rx Instructions: 2 caps po in AM and 1 cap po in PM; cholecalciferol (vitamin D3) [Vitamin D3] 50 mcg (2,000 unit) capsule 4,000 unit PO HS atorvastatin 40 mg tablet 40 mg PO HS fexofenadine [Karlee Allergy] 180 mg Tablet 180 mg PO QAM acetaminophen 325 mg Tablet 650 mg PO Q4H PRN (Reason: pain) Qty: 30 0RF Rx Instructions: OTC aspirin 81 mg Tablet,Delayed Release (Dr/Ec) 81 mg PO QAM Qty: 30 0RF Rx Instructions: OTC albuterol sulfate [Ventolin HFA] 90 mcg/actuation HFA aerosol inhaler 2 puff INHALATION Q4H PRN (Reason: Shortness Of Breath Or Wheezing) allopurinol 100 mg tablet 100 mg QPM levetiracetam [Keppra] 500 mg tablet 1,000 mg PO BID insulin aspart U-100 [Novolog Flexpen U-100 Insulin] 100 unit/mL (3 mL) insulin pen See Rx Instructions .ROUTE .COMPLEX Qty: 0 0RF Rx Instructions: supplemental scale for meal-time coverage and bed-time coverage. insulin glargine [Lantus Solostar U-100 Insulin] 100 unit/mL (3 mL) insulin pen 20 unit SUBCUT BID polyethylene glycol 3350 [Miralax] 17 gram/dose powder 17 g PO BID PRN (Reason: Constipation) furosemide 20 mg tablet 20 mg PO QAM Trulicity 1.5 mg/0.5 mL pen injector 1.5 mg SUBCUT WK Rx Instructions: saturdays carbidopa-levodopa 25-100 mg tablet 1 tab PO TID Rx Instructions: TAKE 1 TABLET BY MOUTH THREE TIMES A DAY gabapentin 300 mg Capsule 600 mg PO QAM sennosides [Senokot] 8.6 mg tablet 17.2 mg PO QAM warfarin 7.5 mg Tablet 7.5 mg PO 2XWK Rx Instructions: tuesdays and in evening warfarin 5 mg tablet 5 mg PO 5XWK Rx Instructions: take in the evening of mon,wed,fri,sat,sun potassium chloride [Klor-Con M20] 20 mEq tablet,ER particles/crystals 20 meq PO QAM magnesium 250 mg Tablet 250 mg PO QAM Referrals Referrals: Josh Gaspar MD [Primary Care Provider] - : Contusion of knee, left Qualifiers: Encounter type: initial encounter Qualified Code(s): S80.02XA - Contusion of left knee, initial encounter Contusion of hip, left Qualifiers: Encounter type: initial encounter Qualified Code(s): S70.02XA - Contusion of left hip, initial encounter Cervical strain Qualifiers: Encounter type: initial encounter Qualified Code(s): S16.1XXA - Strain of muscle, fascia and tendon at neck level, initial encounter Left lower lobe pneumonia Qualifiers: Pneumonia type: due to unspecified organism Qualified Code(s): J18.9 - Pneumonia, unspecified organism
[2021-12-30 16:01] LABS: Basophils # (auto) 0.02 K/uL (0-0.2); Basophils % (auto) 0.4 %; Eosinophils # (auto) 0.05 K/uL (0-0.50); Hematocrit (blood only) 34.2 % (40.1-51.0); Hemoglobin 11.1 g/dl (14.0-18.0); Immature Granulocytes # (auto) 0.05 K/uL (0.00-0.02); Lymphocytes # (auto) 0.92 K/uL (1.2-3.4); Lymphocytes % (auto) 19.2 %; Mean Corpuscular Hgb Conc 32.5 g/dL (32.0-36.0); Mean Corpuscular Volume 86.1 fL (80.0-100.0); Mean Platelet Volume 10.1 fL (9.4-12.4); Monocytes # (auto) 0.23 K/uL (0.24-0.82); Monocytes % (auto) 4.8 %; Neutrophils # (auto) 3.51 K/uL (1.4-6.5); Neutrophils % (auto) 73.6 %; Platelet Count 160 K/uL (130-400); RDW Coefficient of Variation 14.8 % (11.5-14.5); RDW Standard Deviation 46.6 fL (36.4-46.3); Red Blood Count 3.97 M/uL (4.63-6.08); White Blood Count 4.78 K/ul (4.8-10.8)
--- NOTE | 2021-12-30 16:11 | CT Scan Report ---
CT head/brain wo con CLINICAL HISTORY: fall, on warfarin Technique: Contiguous axial CT images of the head were acquired from the base of the skull to the samantha silvio without intravenous contrast administration. Images were viewed in brain, subdural [facility]. Automated dose lowering techniques and/or adjustment according to patient size were utilized for this exam. Comparison: Comparison is made to CT head 11/09/2021 Findings: Areas of decreased attenuation are present in the periventricular and subcortical white matter bilate rally consistent with small vessel ischemic disease. Generalized cerebral atrophy with commensurate e nlargement of the ventricles, sulci, and cisterns is also present. There is no acute intracranial hem orrhage or evidence of acute territorial infarction. No shift of the midline structures, mass effect, or extra-axial abnormalities are shown. Atherosclerotic calcifications are present in the intracran ial segments of the internal carotid arteries. Opacification of left mastoid air cells is noted. The orbits appear normal. There are no acute fract ures of the calvaria or scalp swelling. Impression: No acute intracranial hemorrhage, skull fractures, or scalp swelling. Redemonstration of left effusio n ACT 112: Negative or not required by law. Electronically signed by: Russell Sifuentes M.D. 12/30/2021 4:09 PM
[2021-12-30 16:14] LABS: INR 2.3 (0.9-1.1); Prothrombin Time 23.1 Seconds (9.0-12.0)
--- NOTE | 2021-12-30 16:16 | CT Scan Report ---
CERVICAL SPINE CT CT DOSE: 3778.57 mGy.cm HISTORY: fall, L neck pain TECHNIQUE: Multiaxial CT images of the cervical spine were performed and reformatted in the sagittal and coronal plane without the use of contrast. A dose lowering technique was utilized adhering to th e principles of ALARA. COMPARISON: Cervical spine CT 11/09/2021. FINDINGS: No fractures. No subluxation. Prevertebral soft tissues and the C1-C2 interval are intact. No pneumothorax. A partially visualized left mastoid effusion is again noted and remains unchanged. A nterior cervical discectomy and fusion at C4-C5, unchanged. The left C2-C5 facets remain fused. Moder ate disc space narrowing at C3-C4 and C5-C6. IMPRESSION: No fractures within the cervical spine. ACT 112: Negative or not required by law. Electronically signed by: Jc Che M.D. 12/30/2021 4:14 PM
[2021-12-30 16:20] LABS: Albumin Globulin Ratio 1.5 (0.9-2); Albumin Level 3.7 gm/dl (3.4-5.0); BUN Creatinine Ratio 21.9 (10-20); Bilirubin,Total 0.5 mg/dl (0.2-1.0); Calcium 9.3 mg/dl (8.5-10.1); Creatinine Clr Calc Pharmacy 70.1 ml/min; Est GFR (Non-African American) 62.1 ml/min; Globulin 2.5 gm/dl (2.5-4.0); Potassium 3.7 mmol/L (3.5-5.1); Total Protein 6.2 gm/dl (6.0-8.3)
--- NOTE | 2021-12-30 16:24 | CT Scan Report ---
LUMBAR SPINE CT CT DOSE: HISTORY: fall, low back pain, history lumbar surgery TECHNIQUE: Multiaxial CT images of the lumbar spine were performed and reformatted in the sagittal an d coronal plane without the use of contrast. A dose lowering technique was utilized adhering to the principles of ALARA. COMPARISON: Lumbar spine CT 11/11/2020. FINDINGS: Posterior decompression fusion from L3 through S1 with pedicle screws and rods. The hardwar e appears intact. No fracture or subluxation within the lumbar spine. The visualized sacrum is mainta ined. No significant central canal stenosis by CT technique. Paravertebral soft tissues are unremarka ble. IMPRESSION: 1. No acute fracture or subluxation within the lumbar spine. 2. Postoperative changes as described above. ACT 112: Negative or not required by law. Electronically signed by: Jc Che M.D. 12/30/2021 4:22 PM
--- NOTE | 2021-12-30 16:26 | CT Scan Report ---
CT chest diagnostic wo con CLINICAL HISTORY: Fall, left lateral rib tenderness TECHNIQUE: Multidetector row helical CT of the chest was performed. Coronal and sagittal reformations were obtained. Automated dose lowering techniques and/or adjustment according to patient size were u tilized for this exam. Comparison: Comparison is made to CT chest 11/28/2021 FINDINGS: Lungs and pleura: Atelectasis versus scarring is seen in the dependent portions of the lungs. Diffuse lower lobe predominant groundglass opacities are seen. Bronchial wall thickening in the left lower l obe has improved from prior exam. However numerous tree-in-bud nodules are noted in the left lower lo be, somewhat increased in conspicuity from the prior exam. Postsurgical changes are again seen about the lingula and lower lobe. Heart and pericardium: Aortic valvular calcifications are seen. Mitral annular calcifications are not ed. Vessels: Severe atherosclerotic changes in the aorta and coronary arteries. Mediastinum and vamshi: Unremarkable. Chest wall and lower neck: Unremarkable. Abdomen: For findings below the diaphragm, please refer to CT of the abdomen dated the same. Bones: Degenerative changes in the thoracic spine. Anterior cervical fixation hardware and median gaviota rnotomy wires are noted. No mohsen rib fractures are seen. Anterolateral left rib irregularity is unch anged from prior exam and is considered less likely represent nondisplaced fracture. IMPRESSION: 1. No evidence of acute fracture. 2. Redemonstration of previously noted groundglass and tree-in-bud nodules favoring the lower lungs, favoring a infectious/inflammatory process. Tree-in-bud nodularity in the left lower lobe is more co nspicuous than in the prior exam. Follow-up to resolution is recommended. ACT 112: Negative or not required by law. Electronically signed by: Russell Sifuentes M.D. 12/30/2021 4:24 PM
--- NOTE | 2021-12-30 16:43 | CT Scan Report ---
CT abd pelvis wo con CLINICAL HISTORY: fall, left pelvis/hip/low back pain, hx lumb surg TECHNIQUE: Helical axial images of the abdomen and pelvis were obtained. Automated dose lowering tech niques and/or adjustment according to patient size were utilized for this exam. This exam was perfor med without intravenous contrast. COMPARISON: Comparison is made to CT abdomen pelvis 12/09/2021 FINDINGS: Lower chest: For findings above the diaphragm, please see CT chest performed same day. Liver: Unremarkable. No focal lesions are seen. Gallbladder and biliary tree: Patient is status post cholecystectomy. No intra- or extrahepatic bilia ry ductal dilation. Pancreas: Unremarkable, no focal lesions. Spleen: Unremarkable. Adrenals: Unremarkable. Kidneys and ureters: Nonobstructive nephrolithiasis is seen. Bladder: Unremarkable. Reproductive organs: Brachytherapy seeds are seen in the prostate. Bowel: Diverticulosis is seen without evidence of diverticulitis. A lap band is noted. Lymph nodes Retroperitoneal: Unremarkable. Pelvic: Unremarkable. Mesenteric: Unremarkable. Peritoneum: Normal. Vessels: Atherosclerotic calcifications are seen. Abdominal wall: Postsurgical changes of hernia surgery are seen in the right inguinal region. Diastas es of the musculature is noted. Bones: Posterior fixation hardware is seen in the lumbar spine with heterotopic ossification noted. N o acute fractures are seen. IMPRESSION: 1. No acute abnormalities and in particular no evidence of acute fractures. 2. Additional chronic findings as above. ACT 112: Negative or not required by law. Electronically signed by: Russell Sifuentes M.D. 12/30/2021 4:41 PM
--- NOTE | 2021-12-30 17:05 | XRay Report ---
XR knee LT 3V, XR tibia fibula LT 2V CLINICAL HISTORY: fall, diffuse tender and swelling TECHNIQUE: 3 views of the left knee were obtainedand 2 views of the left tibia and fibula were obtain ed. Comparison: None available at the time of this dictation. FINDINGS: There is no evidence of an acute fracture. Degenerative changes are seen most prominent in the patell ofemoral joint. No joint effusion is seen. Vascular calcifications are noted. IMPRESSION: No evidence of acute osseous injury. ACT 112: Negative or not required by law. Electronically signed by: Russell Sifuentes M.D. 12/30/2021 5:03 PM
--- NOTE | 2021-12-30 18:45 | Emergency Department Note ---
ED Visit Note Physician Evaluation Note: Patient was seen in conjunction with the physician microbiology lab assistant. Please see the physician microbiology lab assistant note for full details of the visit. I have personally evaluated and examined this patient. I performed a substantive portion of the patient visit including medical decision making and interpretation of diagnostic studies. On my examination the patient is in no acute distress, he is somewhat frail appearing, does have some swelling over his left knee area. Also complains of some rib pain. CT imaging was negative for any acute traumatic process or fracture. Patient will be admitted to the hospitalist service secondary to his ambulatory dysfunction difficulty bearing weight on his left knee in addition to age and comorbidities. I agree with assessment and plan of SOWMYA Delgadillo DO . : Contusion of knee, left Qualifiers: Encounter type: initial encounter Qualified Code(s): S80.02XA - Contusion of left knee, initial encounter Contusion of hip, left Qualifiers: Encounter type: initial encounter Qualified Code(s): S70.02XA - Contusion of left hip, initial encounter Cervical strain Qualifiers: Encounter type: initial encounter Qualified Code(s): S16.1XXA - Strain of muscle, fascia and tendon at neck level, initial encounter Left lower lobe pneumonia Qualifiers: Pneumonia type: due to unspecified organism Qualified Code(s): J18.9 - Pneumonia, unspecified organism
--- NOTE | 2021-12-30 19:23 | CT Scan Report ---
CT knee LT wo con CLINICAL HISTORY: fall, unable to bear weight TECHNIQUE: Multidetector row helical CT of the left knee was performed without intravenous contrast. Coronal and sagittal reformations were obtained. Automated dose lowering techniques and/or adjustment according to patient size were utilized for this examination. CT DOSE: 186.74 mGy.cm Comparison: Comparison is made to left knee radiograph 12/30/2021 FINDINGS: The osseous structures are without fracture or dislocation. The joint spaces are maintained. No joint effusion is seen. Mild soft tissue stranding is seen in the suprapatellar region. IMPRESSION: No evidence of acute fracture or dislocation. Mild soft tissue stranding is noted in the anterior sup erior tissues. ACT 112: Negative or not required by law. Electronically signed by: Russell Sifuentes M.D. 12/30/2021 7:20 PM
--- NOTE | 2021-12-30 22:30 | History & Physical Report ---
Date of Service December 30, 2021 Assessment & Plan (1) Pneumonia of both lower lobes: Plan: Cefepime 2 g IV every 12 hours Duonebs every 4 hours while awake and every 2 hours when necessary. Guaifenesin extended release 12 mg p.o. twice daily (2) Ambulatory dysfunction: Plan: Amatory dysfunction/status post mechanical fall over a box/parkinsonism affecting ambulation- PT/OT consult Will be returning to the [facility] once pulmonary status cleared (3) Contusion of knee, left: Plan: We will treat symptomatically CT and x-ray without fractures (4) Contusion of hip, left: (5) Fall from other slipping, tripping, or stumbling: (6) Parkinsonism: Plan: Continue carbidopa levodopa (7) CAD (coronary artery disease): Plan: CAD/hypertension continue furosemide, aspirin, potassium chloride, warfarin (8) Diabetes: Plan: Continue Lantus 20 and subcu twice daily Place on Accu-Cheks before meals and at bedtime with NovoLog coverage per scale Deanna Bullock (9) Chronic kidney disease, stage 3a: (10) Aortic valve replaced: Plan: Continue anticoagulation with warfarin (11) Rheumatoid arthritis: Plan: Continue topiramate, prednisone History of Present Illness Chief Complaint: The patient presents to the emergency department after falling over a box while moving to the [facility] Primary Care Provider: Josh Gaspar MD The patient is a 76-year-old male with past medical history including ambulatory dysfunction, pneumonia, prostate cancer with LUTS, parkinsonism, seizure-like activity, supratherapeutic INR, CAD, aortic valve replacement and RA. Patient reports he was moving into the [place] [facility], tripped over a box, injured his left knee, he has not been able to walk since. Work-up in the emergency department include the following imaging: CT head negative, CT lumbar spine negative, CT cervical spine negative, CT abdomen pelvis negative, CT scan of chest shows bilateral lower lobe infiltrates, left worsening compared to previous Allergies Allergy/AdvReac Type Severity Reaction Status Date / Time Iodinated Contrast Media Allergy Severe Anaphylaxis Verified 12/29/21 15:21 shellfish derived Allergy Severe Anaphylaxis Verified 12/29/21 15:21 tamsulosin [From Flomax] Allergy Intermediate Itching Verified 12/29/21 15:21 Tetanus Vaccines and Toxoid Allergy Unknown Unknown Verified 12/29/21 15:21 Home Medications Medication Instructions Recorded Confirmed Type atorvastatin 40 mg tablet 40 mg PO HS 05/28/20 12/29/21 History fexofenadine 180 mg tablet 180 mg PO QAM 02/11/21 12/29/21 History (Karlee Allergy) allopurinol 100 mg tablet 100 mg QPM 04/10/21 12/29/21 History levetiracetam 500 mg tablet 1,000 mg PO BID 06/30/21 12/29/21 History (Keppra) insulin aspart U-100 100 unit/mL See Rx Instructions .Route 07/08/21 12/29/21 Rx (3 mL) subcutaneous pen (Novolog .COMPLEX #0 mL Flexpen U-100 Insulin aspart) cholecalciferol (vitamin D3) 50 4,000 unit PO HS 07/14/21 12/29/21 History mcg (2,000 unit) capsule (Vitamin D3) prednisone 10 mg tablet 10 mg PO QAM 07/14/21 12/29/21 History insulin glargine 100 unit/mL (3 20 unit subcut BID 07/26/21 12/29/21 History mL) subcutaneous pen (Lantus Solostar U-100 Insulin) acetaminophen 325 mg tablet 650 mg PO Q4H PRN pain #30 tabs 08/04/21 12/29/21 Rx aspirin 81 mg tablet,delayed 81 mg PO QAM #30 tabs 08/04/21 12/29/21 Rx release fluticasone fur. 100 mcg-umeclid 1 inh inhalation QAM #60 ea 09/06/21 12/29/21 Rx 62.5 mcg-vilant 25 mcg inhalat.powder (Trelegy Ellipta) albuterol sulfate 90 mcg/actuation 2 puff inhalation Q4H PRN 09/27/21 12/29/21 History aerosol inhaler (Ventolin HFA) Shortness Of Breath Or Wheezing polyethylene glycol 3350 17 17 g PO BID PRN Constipation 10/04/21 12/29/21 History gram/dose oral powder (Miralax) carbidopa 25 mg-levodopa 100 mg 1 tab PO TID 11/24/21 12/29/21 History tablet dulaglutide 1.5 mg/0.5 mL 1.5 mg subcut WK 11/24/21 12/29/21 History subcutaneous pen injector (Trulicity) furosemide 20 mg tablet 20 mg PO QAM 11/24/21 12/29/21 History gabapentin 300 mg capsule 600 mg PO QAM 11/24/21 12/29/21 History magnesium 250 mg tablet 250 mg PO QAM 11/24/21 12/29/21 History potassium chloride 20 mEq 20 meq PO QAM 11/24/21 12/29/21 History tablet,extended release(part/cryst) (Klor-Con M) sennosides 8.6 mg tablet (Senokot) 17.2 mg PO QAM 11/24/21 12/29/21 History warfarin 5 mg tablet 5 mg PO 5XWK 11/24/21 12/29/21 History warfarin 7.5 mg tablet 7.5 mg PO 2XWK 11/24/21 12/29/21 History finasteride 5 mg tablet 5 mg PO QAM #30 tabs 12/12/21 12/29/21 Rx cyclobenzaprine 5 mg tablet 2.5 mg PO HS PRN muscle spasm #90 12/29/21 12/29/21 Rx tabs gabapentin 300 mg capsule See Rx Instructions .Route 12/29/21 12/29/21 Rx .COMPLEX #270 caps topiramate 100 mg tablet (Topamax) 100 mg PO BID 30 days #180 tabs 12/29/21 12/29/21 Rx Past Med/Surg History Medical History Acute dehydration Acute left-sided muscle weakness Anemia CAD (coronary artery disease) Cerebrovascular accident Chronic respiratory failure with hypoxia Current use of intermodal customer service anticoagulation Dehydration Depression Diabetes Dizziness AZUL (dyspnea on exertion) Elevated troponin Fall Fall Fall Generalized weakness Headache Hypervolemia Hypoxia Lower back pain Nasal congestion Non-ST elevation [place] (NSTEMI) Non-sustained ventricular tachycardia PAF (paroxysmal atrial fibrillation) Retrosternal chest pain Rheumatoid arthritis Shortness of breath Stroke-like symptom 12/2019, w/ blurry vision and dysarthria. mild R sided wkness. attending outpatient physical therapy w/ good improvement in strength (5+/5 strength of all 4 extremities as of 05/28/20) Syncope Weakness Weakness Surgical History H/O hernia repair History of cholecystectomy History of fusion of cervical spine History of heart artery stent History of lung biopsy 2019 History of partial nephrectomy Family History Mother , age 87 of pulmonary issues Rheumatoid arthritis Father , in his mid 80s of a stroke Stroke Other Coronary heart disease Social History Smoking Status: Never smoker Second Hand Exposure: No; Do You Dip or Chew Tobacco: No; Tobacco Cessation Education Requested by Patient: No Hx Alcohol Use: No Hx Substance Use: No Preferred Language: Moroccan Communication Ability: Effective Hearing Ability: Hard of Hearing [employer] Required: No Beliefs That Will Affect Care: None marital status: / Current Living Situation: Alone Current Living Situation Comment: lives alone in a one story house in [place] current occupational status: retired 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 How many Children do You have: 2 How many Children do You have Comment: son Other Information That Helps Us Care for You: Yes (had home health but can not afford it now) Feels Safe at Home: Yes Safety Concerns: Feels Safe At This Time Assistive Devices: Brace/Splint/Immobilizer, Hearing Aid - Bilateral, Oxygen - at Night and Walker Review of Systems Review of Systems: The patient denies chest pain, palpitations, sore throat, fevers, chills, sweats, nausea, vomiting, diarrhea , constipation, abdominal pain, pelvic pain, blood in urine or stool, dysuria, urinary frequency or urgency, headache, memory loss, loss of consciousness, rash, abnormal bruising or bleeding, focal or generalized weakness, numbness or tingling in arms, back or neck pain, or night sweats. The review of systems is otherwise negative other than for that already noted above, and at least 10 systems have been reviewed. Physical Exam Physical Exam: The patient is awake, alert and oriented 3, well developed and well nourished, normocephalic and atraumatic, lying in bed and in no acute distress. HEENT--PERRL, EOMI, mucous membranes and oropharynx normal Neck--supple. No JVD. No bruits. Thyroid normal, trachea midline, no adenopathy. Heart--normal S1 and S2. No murmurs, rubs or gallops. Lungs--clear bilaterally, no respiratory distress, no accessory muscle use. Abdomen--normal bowel sounds and soft. Nontender. Nondistended, no hernias or masses, no organomegaly. Extremities--no cyanosis or clubbing. Left knee edema. There are good distal pulses b/l. Dermatologic--normal skin turgor, normal color, no abnormal lymph nodes, no rash. Neurologic--cranial nerves II through XII grossly intact. Rheumatologic--decreased range of motion left knee due to pain Psychiatric--normal affect. Results & Data Results & Data ([facility]) Vital Signs (Past 12 Hours) Vital Signs Temp Pulse Pulse Resp BP BP Pulse Ox 12/30/21 21:30 59 L 16 134/67 94 12/30/21 20:20 55 L 18 115/69 98 12/30/21 19:10 58 L 18 121/62 98 12/30/21 18:00 51 L 16 131/89 97 12/30/21 17:06 67 22 120/66 92 12/30/21 17:06 120/66 12/30/21 15:34 58 L 18 94 12/30/21 15:34 63 18 162/89 H 94 12/30/21 14:23 36.8 C 66 18 118/69 97 O2 Del Method 12/30/21 21:30 Room Air 12/30/21 20:20 Room Air 12/30/21 19:10 Room Air 12/30/21 18:00 12/30/21 17:06 Room Air 12/30/21 17:06 12/30/21 15:34 Room Air 12/30/21 15:34 Room Air 12/30/21 14:23 Room Air Laboratory Results Laboratory Results WBC 4.78 K/ul (4.8-10.8) L 12/30/21 15:45 RBC 3.97 M/uL (4.63-6.08) L 12/30/21 15:45 Hgb 11.1 g/dl (14.0-18.0) L 12/30/21 15:45 Hct 34.2 % (40.1-51.0) L 12/30/21 15:45 MCV 86.1 fL (80.0-100.0) 12/30/21 15:45 MCH 28.0 pg (25.0-34.0) 12/30/21 15:45 MCHC 32.5 g/dL (32.0-36.0) 12/30/21 15:45 RDW Std Deviation 46.6 fL (36.4-46.3) H 12/30/21 15:45 RDW Coeff of Lianne 14.8 % (11.5-14.5) H 12/30/21 15:45 Plt Count 160 K/uL (130-400) 12/30/21 15:45 MPV 10.1 fL (9.4-12.4) 12/30/21 15:45 Immature Gran % (Auto) 1.0 % 12/30/21 15:45 Neut % (Auto) 73.6 % 12/30/21 15:45 Lymph % (Auto) 19.2 % 12/30/21 15:45 Wilkes % (Auto) 4.8 % 12/30/21 15:45 Eos % (Auto) 1.0 % 12/30/21 15:45 Baso % (Auto) 0.4 % 12/30/21 15:45 Neut # (Auto) 3.51 K/uL (1.4-6.5) 12/30/21 15:45 Lymph # (Auto) 0.92 K/uL (1.2-3.4) L 12/30/21 15:45 Wilkes # (Auto) 0.23 K/uL (0.24-0.82) L 12/30/21 15:45 Eos # (Auto) 0.05 K/uL (0-0.50) 12/30/21 15:45 Baso # (Auto) 0.02 K/uL (0-0.2) 12/30/21 15:45 Immature Gran # (Auto) 0.05 K/uL (0.00-0.02) H 12/30/21 15:45 PT 23.1 Seconds (9.0-12.0) H 12/30/21 15:45 INR 2.3 (0.9-1.1) H 12/30/21 15:45 Sodium 139 mmol/L (136-145) 12/30/21 15:45 Potassium 3.7 mmol/L (3.5-5.1) 12/30/21 15:45 Chloride 108 mmol/L (98-107) H 12/30/21 15:45 Carbon Dioxide 23 mmol/L (21-32) 12/30/21 15:45 Anion Gap 8 (3-11) 12/30/21 15:45 BUN 25 mg/dl (6-23) H 12/30/21 15:45 Creatinine 1.14 mg/dl (0.6-1.4) 12/30/21 15:45 Est Cr Clr Drug Dosing 70.1 ml/min 12/30/21 15:45 Est GFR ( Amer) 72.0 ml/min 12/30/21 15:45 Est GFR (Non-Af Amer) 62.1 ml/min 12/30/21 15:45 BUN/Creatinine Ratio 21.9 (10-20) H 12/30/21 15:45 Glucose 154 mg/dl (70-99(Fasting)) H 12/30/21 15:45 Calcium 9.3 mg/dl (8.5-10.1) 12/30/21 15:45 Total Bilirubin 0.5 mg/dl (0.2-1.0) 12/30/21 15:45 AST 25 U/L (13-39) 12/30/21 15:45 ALT 18 U/L (7-52) 12/30/21 15:45 Alkaline Phosphatase 54 U/L (34-104) 12/30/21 15:45 Total Protein 6.2 gm/dl (6.0-8.3) 12/30/21 15:45 Albumin 3.7 gm/dl (3.4-5.0) 12/30/21 15:45 Globulin 2.5 gm/dl (2.5-4.0) 12/30/21 15:45 Albumin/Globulin Ratio 1.5 (0.9-2) 12/30/21 15:45 SARS-CoV-2, RNA, NAAT NEGATIVE (NEGATIVE) 12/30/21 21:55 Impressions Abdomen/Pelvis CT 12/30/21 15:24 CT abd pelvis wo con CLINICAL HISTORY: fall, left pelvis/hip/low back pain, hx lumb surg TECHNIQUE: Helical axial images of the abdomen and pelvis were obtained. Automated dose lowering techniques and/or adjustment according to patient size were utilized for this exam. This exam was performed without intravenous contrast. COMPARISON: Comparison is made to CT abdomen pelvis 12/09/2021 FINDINGS: Lower chest: For findings above the diaphragm, please see CT chest performed same day. Liver: Unremarkable. No focal lesions are seen. Gallbladder and biliary tree: Patient is status post cholecystectomy. No intra- or extrahepatic biliary ductal dilation. Pancreas: Unremarkable, no focal lesions. Spleen: Unremarkable. Adrenals: Unremarkable. Kidneys and ureters: Nonobstructive nephrolithiasis is seen. Bladder: Unremarkable. Reproductive organs: Brachytherapy seeds are seen in the prostate. Bowel: Diverticulosis is seen without evidence of diverticulitis. A lap band is noted. Lymph nodes Retroperitoneal: Unremarkable. Pelvic: Unremarkable. Mesenteric: Unremarkable. Peritoneum: Normal. Vessels: Atherosclerotic calcifications are seen. Abdominal wall: Postsurgical changes of hernia surgery are seen in the right inguinal region. Diastases of the musculature is noted. Bones: Posterior fixation hardware is seen in the lumbar spine with heterotopic ossification noted. No acute fractures are seen. IMPRESSION: 1. No acute abnormalities and in particular no evidence of acute fractures. 2. Additional chronic findings as above. ACT 112: Negative or not required by law. Electronically signed by: Russell Sifuentes M.D. 12/30/2021 4:[address] 12/30/21 15:[address] DOSE: 3778.57 mGy.cm HISTORY: fall, L neck pain TECHNIQUE: Multiaxial CT images of the cervical spine were performed and reformatted in the sagittal and coronal plane without the use of contrast. A dose lowering technique was utilized adhering to the principles of ALARA. COMPARISON: Cervical spine CT 11/09/2021. FINDINGS: No fractures. No subluxation. Prevertebral soft tissues and the C1-C2 interval are intact. No pneumothorax. A partially visualized left mastoid effusion is again noted and remains unchanged. Anterior cervical discectomy and fusion at C4-C5, unchanged. The left C2-C5 facets remain fused. Moderate disc space narrowing at C3-C4 and C5-C6. IMPRESSION: No fractures within the cervical spine. ACT 112: Negative or not required by law. Electronically signed by: Jc Che M.D. 12/30/2021 4:[address] 12/30/21 15:24 CT chest diagnostic wo con CLINICAL HISTORY: Fall, left lateral rib tenderness TECHNIQUE: Multidetector row helical CT of the chest was performed. Coronal and sagittal reformations were obtained. Automated dose lowering techniques and/or adjustment according to patient size were utilized for this exam. Comparison: Comparison is made to CT chest 11/28/2021 FINDINGS: Lungs and pleura: Atelectasis versus scarring is seen in the dependent portions of the lungs. Diffuse lower lobe predominant groundglass opacities are seen. Bronchial wall thickening in the left lower lobe has improved from prior exam. However numerous tree-in-bud nodules are noted in the left lower lobe, somewhat increased in conspicuity from the prior exam. Postsurgical changes are again seen about the lingula and lower lobe. Heart and pericardium: Aortic valvular calcifications are seen. Mitral annular calcifications are noted. Vessels: Severe atherosclerotic changes in the aorta and coronary arteries. Mediastinum and vamshi: Unremarkable. Chest wall and lower neck: Unremarkable. Abdomen: For findings below the diaphragm, please refer to CT of the abdomen dated the same. Bones: Degenerative changes in the thoracic spine. Anterior cervical fixation hardware and median sternotomy wires are noted. No mohsen rib fractures are seen. Anterolateral left rib irregularity is unchanged from prior exam and is considered less likely represent nondisplaced fracture. IMPRESSION: 1. No evidence of acute fracture. 2. Redemonstration of previously noted groundglass and tree-in-bud nodules favoring the lower lungs, favoring a infectious/inflammatory process. Tree-in-bud nodularity in the left lower lobe is more conspicuous than in the prior exam. Follow-up to resolution is recommended. ACT 112: Negative or not required by law. Electronically signed by: Russell Sifuentes M.D. 12/30/2021 4:[address] 12/30/21 15:24 CT head/brain wo con CLINICAL HISTORY: fall, on warfarin Technique: Contiguous axial CT images of the head were acquired from the base of the skull to the vertex without intravenous contrast administration. Images were viewed in brain, subdural and bone windows. Automated dose lowering techniques and/or adjustment according to patient size were utilized for this exam. Comparison: Comparison is made to CT head 11/09/2021 Findings: Areas of decreased attenuation are present in the periventricular and subcortical white matter bilaterally consistent with small vessel ischemic dis ease. Generalized cerebral atrophy with commensurate enlargement of the ventricles, sulci, and cisterns is also present. There is no acute intracranial hemorrhage or evidence of acute territorial infarction. No shift of the midline structures, mass effect, or extra-axial abnormalities are shown. Atherosclerotic calcifications are present in the intracranial segments of the internal carotid arteries. Opacification of left mastoid air cells is noted. The orbits appear normal. There are no acute fractures of the calvaria or scalp swelling. Impression: No acute intracranial hemorrhage, skull fractures, or scalp swelling. Redemonstration of left effusion ACT 112: Negative or not required by law. Electronically signed by: Russell Sifuentes M.D. 12/30/2021 4:09 PM Knee X-Ray 12/30/21 15:24 XR knee LT 3V, XR tibia fibula LT 2V CLINICAL HISTORY: fall, diffuse tender and swelling TECHNIQUE: 3 views of the left knee were obtainedand 2 views of the left tibia and fibula were obtained. Comparison: None available at the time of this dictation. FINDINGS: There is no evidence of an acute fracture. Degenerative changes are seen most prominent in the patellofemoral joint. No joint effusion is seen. Vascular calcifications are noted. IMPRESSION: No evidence of acute osseous injury. ACT 112: Negative or not required by law. Electronically signed by: Russell Sifuentes M.D. 12/30/2021 5:[address] 12/30/21 15:[address] DOSE: HISTORY: fall, low back pain, history lumbar surgery TECHNIQUE: Multiaxial CT images of the lumbar spine were performed and reformatted in the sagittal and coronal plane without the use of contrast. A dose lowering technique was utilized adhering to the principles of ALARA. COMPARISON: Lumbar spine CT 11/11/2020. FINDINGS: Posterior decompression fusion from L3 through S1 with pedicle screws and rods. The hardware appears intact. No fracture or subluxation within the lumbar spine. The visualized sacrum is maintained. No significant central canal stenosis by CT technique. Paravertebral soft tissues are unremarkable. IMPRESSION: 1. No acute fracture or subluxation within the lumbar spine. 2. Postoperative changes as described above. ACT 112: Negative or not required by law. Electronically signed by: Jc Che M.D. 12/30/2021 4:22 PM Tibia/Fibula X-Ray 12/30/21 15:24 XR knee LT 3V, XR tibia fibula LT 2V CLINICAL HISTORY: fall, diffuse tender and swelling TECHNIQUE: 3 views of the left knee were obtainedand 2 views of the left tibia and fibula were obtained. Comparison: None available at the time of this dictation. FINDINGS: There is no evidence of an acute fracture. Degenerative changes are seen most prominent in the patellofemoral joint. No joint effusion is seen. Vascular calcifications are noted. IMPRESSION: No evidence of acute osseous injury. ACT 112: Negative or not required by law. Electronically signed by: Russell Sifuentes M.D. 12/30/2021 5:[address] 12/30/21 18:20 CT knee LT wo con CLINICAL HISTORY: fall, unable to bear weight TECHNIQUE: Multidetector row helical CT of the left knee was performed without intravenous contrast. Coronal and sagittal reformations were obtained. Automated dose lowering techniques and/or adjustment according to patient size were utilized for this examination. CT DOSE: 186.74 mGy.cm Comparison: Comparison is made to left knee radiograph 12/30/2021 FINDINGS: The osseous structures are without fracture or dislocation. The joint spaces are maintained. No joint effusion is seen. Mild soft tissue stranding is seen in the suprapatellar region. IMPRESSION: No evidence of acute fracture or dislocation. Mild soft tissue stranding is noted in the anterior superior tissues. ACT 112: Negative or not required by law. Electronically signed by: Russell Sifuentes M.D. 12/30/2021 7:20 PM Code Status & VTE Plan Code Status Full code VTE Prophylaxis Plan VTE Prophylaxis will be ordered: Yes PG Care Time/CCT Total # of Minutes Spent Total Time Spent with Patient: Total time spent is greater than 50% in coordination of care (as documented) at patient's floor/unit and/or counseling patient: Coding Level of Care Code 67549 Initial Inpt Care Lvl 3 Diagnoses Pneumonia of both lower lobes J18.9 Ambulatory dysfunction R26.2 Contusion of knee, left S80.02XA Encounter type: initial encounter Contusion of hip, left S70.02XA Encounter type: initial encounter Fall from other slipping, tripping, or stumbling W01.0XXA Parkinsonism G20 CAD (coronary artery disease) I25.10 Coronary Disease-Associated Artery/Lesion type: [place] artery [place] vs. transplanted heart: [place] heart Associated angina: without angina Diabetes E11.42; Z79.4 Diabetes mellitus type: type 2 Diabetes mellitus fpc insulin use: with fpc use Diabetes mellitus complication status: with neurologic complications Diabetes mellitus complication detail: with polyneuropathy Chronic kidney disease, stage 3a N18.3 Aortic valve replaced Z95.2 Rheumatoid arthritis M06.9 Rheumatoid arthritis location: unspecified site Rheumatoid factor presence: unspecified presence (1) Contusion of knee, left Encounter type: initial encounter Qualified Code(s): S80.02XA - Contusion of left knee, initial encounter (2) Contusion of hip, left Encounter type: initial encounter Qualified Code(s): S70.02XA - Contusion of left hip, initial encounter (3) CAD (coronary artery disease) Coronary Disease-Associated Artery/Lesion type: [place] artery [place] vs. transplanted heart: [place] heart Associated angina: without angina Qualified Code(s): I25.10 - Atherosclerotic heart disease of [place] coronary artery without angina pectoris (4) Diabetes Diabetes mellitus type: type 2 Diabetes mellitus intermodal customer service insulin use: with intermodal customer service use Diabetes mellitus complication status: with neurologic complications Diabetes mellitus complication detail: with polyneuropathy Qualified Code(s): E11.42 - Type 2 diabetes mellitus with diabetic polyneuropathy; Z79.4 - shelter (current) use of insulin (5) Rheumatoid arthritis Rheumatoid arthritis location: unspecified site Rheumatoid factor presence: unspecified presence Qualified Code(s): M06.9 - Rheumatoid arthritis, unspecified
[2021-12-31] MEDS ORDERED: ONDANSETRON INJ 2 MG/ML 2 ML VIAL IV PRN (01:04)
[2021-12-31] MEDS ORDERED: CYCLOBENZAPRINE HCL 5 MG TAB PO PRN (01:04)
[2021-12-31] MEDS ORDERED: GLUCOSE 40% GEL 15 GM TUBE PO PRN (01:04)
[2021-12-31] MEDS ORDERED: GABAPENTIN 300 MG CAP PO SCH ×2 (01:04→09:00)
[2021-12-31] MEDS ORDERED: ALBUTEROL HFA 8 GM INHALER INH PRN (01:04)
[2021-12-31] MEDS ORDERED: DEXTROSE 50% 50 ML SYRINGE IV PRN (01:04)
[2021-12-31] MEDS ORDERED: GLUCOSE 10 TAB/TUBE PO PRN (01:04)
[2021-12-31] MEDS ORDERED: ACETAMINOPHEN 325 MG TAB PO PRN (01:04)
[2021-12-31] MEDS ORDERED: POLYETHYLENE (MIRALAX) 17 GM PACK PO PRN (01:04)
[2021-12-31] MEDS ORDERED: CARBOHYDRATES FOR HYPOGLYCEMIA PO PRN (01:04)
[2021-12-31] MEDS ORDERED: GLUCAGON FOR INJ 1 MG VIAL SQ PRN (01:04)
[2021-12-31] MEDS: TOPIRAMATE 100 MG TAB PO SCH ×2 (02:16→08:26)
[2021-12-31] MEDS: levETIRAcetam 500 MG TAB PO SCH ×2 (02:16→08:27)
[2021-12-31] MEDS: CEFEPIME 2,000 MG in SYRINGE 0 ML IV SCH ×2 (03:02→11:53)
[2021-12-31 07:25] LABS: Basophils # (auto) 0.02 K/uL (0-0.2); Basophils % (auto) 0.5 %; Eosinophils # (auto) 0.18 K/uL (0-0.50); Eosinophils % (auto) 4.3 %; Hemoglobin 10.4 g/dl (14.0-18.0); Immature Granulocytes # (auto) 0.06 K/uL (0.00-0.02); Immature Granulocytes % (auto) 1.4 %; Lymphocytes # (auto) 1.05 K/uL (1.2-3.4); Mean Corpuscular Hemoglobin 27.7 pg (25.0-34.0); Mean Corpuscular Hgb Conc 30.6 g/dL (32.0-36.0); Mean Corpuscular Volume 90.4 fL (80.0-100.0); Mean Platelet Volume 9.8 fL (9.4-12.4); Monocytes # (auto) 0.33 K/uL (0.24-0.82); Monocytes % (auto) 7.9 %; Neutrophils # (auto) 2.56 K/uL (1.4-6.5); Neutrophils % (auto) 60.9 %; Platelet Count 148 K/uL (130-400); RDW Coefficient of Variation 14.8 % (11.5-14.5); RDW Standard Deviation 49.5 fL (36.4-46.3); Red Blood Count 3.76 M/uL (4.63-6.08)
[2021-12-31 07:45] LABS: Albumin Globulin Ratio 1.5 (0.9-2); Albumin Level 3.4 gm/dl (3.4-5.0); BUN Creatinine Ratio 20.8 (10-20); Bilirubin,Total 0.5 mg/dl (0.2-1.0); Calcium 8.7 mg/dl (8.5-10.1); Creatinine Clr Calc Pharmacy 64.6 ml/min; Est GFR (African American) 67.7 ml/min; Est GFR (Non-African American) 58.4 ml/min; Globulin 2.2 gm/dl (2.5-4.0); Total Protein 5.6 gm/dl (6.0-8.3)
[2021-12-31 07:58] LABS: INR 1.9 (0.9-1.1); Partial Thromboplastin Ratio 1.2; Partial Thromboplastin Time 33.3 Seconds (21.0-31.0); Prothrombin Time 19.5 Seconds (9.0-12.0)
[2021-12-31 08:05] LABS: Estimated Average Glucose 169 mg/dl; Hemoglobin A1C 7.5 % (4.5-5.6)
[2021-12-31] MEDS: CARBIDOPA/LEVODOPA 25/100MG TAB PO SCH ×2 (08:24→13:54)
[2021-12-31] MEDS: INSULIN ASPART PER UNIT SC SCH ×2 (08:34→12:35)
[2021-12-31] MEDS ORDERED: FLUTICASONE FUROATE 100MCG 14 PUFFS/INHALER INH SCH (09:00)
[2021-12-31] MEDS ORDERED: FINASTERIDE 5 MG TAB PO SCH (09:00)
[2021-12-31] MEDS ORDERED: LANTUS PER UNIT CHARGE SQ SCH (09:00)
[2021-12-31] MEDS ORDERED: ASPIRIN 81 MG ECTAB PO SCH (09:00)
[2021-12-31] MEDS ORDERED: SENNA 8.6 MG TAB PO SCH (09:00)
[2021-12-31] MEDS ORDERED: UMECLIDINIUM/VILANTEROL 62.5/25MCG 7 PUFFS/INHALER INH SCH (09:00)
[2021-12-31] MEDS ORDERED: POTASSIUM CHLORIDE CRTAB 20 MEQ TABCR PO SCH (09:00)
[2021-12-31] MEDS ORDERED: MAGNESIUM OXIDE 400 MG TAB PO SCH (09:00)
[2021-12-31] MEDS ORDERED: FEXOFENADINE HCL 180 MG TAB PO SCH (09:00)
[2021-12-31] MEDS ORDERED: FUROSEMIDE 20 MG TAB PO SCH (09:00)
[2021-12-31] MEDS ORDERED: NON-FORMULARY MEDICATION (Fluticasone-Umeclidin-Vilanter [Trelegy Ellipta] 100-62.5-25 mcg INH SCH (09:00)
[2021-12-31] MEDS ORDERED: guaiFENesin 600 MG TABCR PO SCH (09:00)
[2021-12-31] MEDS ORDERED: WARFARIN SOD 5 MG TAB PO SCH (16:00)
--- NOTE | 2021-12-31 17:24 | Discharge Summary ---
Date of Service December 31, 2021 Admission HPI Per Admitting Provider The patient is a 76-year-old male with past medical history including ambulatory dysfunction, pneumonia, prostate cancer with LUTS, parkinsonism, seizure-like activity, supratherapeutic INR, CAD, aortic valve replacement and RA. Patient reports he was moving into the [facility], tripped over a box, injured his left knee, he has not been able to walk since. Work-up in the emergency department include the following imaging: CT head negative, CT lumbar spine negative, CT cervical spine negative, CT abdomen pelvis negative, CT scan of chest shows bilateral lower lobe infiltrates, left worsening compared to previous Principal Diagnosis Fall, knee sprain. Questionable chronic aspiration pneumonitis versus other inflammatory lung finding. Discharge Exam In general he is awake and alert oriented pleasant no distress. HEENT normocephalic atraumatic mucous membranes moist. Lungs are overall clear with very faint basilar Rales. Right slightly greater than left. No accessory muscle use no rhonchi no wheezes good effort. Left lower extremity shows his knee to be somewhat tender in the lateral joint line with no clear effusion no crepitus no ligamentous laxity joint is stable. Skin without rashes, pallor, icterus. Discharge Data Allergies Allergy/AdvReac Type Severity Reaction Status Date / Time Iodinated Contrast Media Allergy Severe Anaphylaxis Verified 12/29/21 15:21 shellfish derived Allergy Severe Anaphylaxis Verified 12/29/21 15:21 tamsulosin [From Flomax] Allergy Intermediate Itching Verified 12/29/21 15:21 Tetanus Vaccines and Toxoid Allergy Unknown Unknown Verified 12/29/21 15:21 Consultations 12/30/21 21:48 ED Decision to Admit Stat Ordered Studies 12/30/21 15:24 CT abd pelvis wo con Stat CT chest without contrast [CT chest diagnostic wo con] Stat CT head/brain wo con Stat CT lumbar spine wo con Stat CT neck [CT cervical spine wo con] Stat 12/30/21 18:20 CT knee LT wo con Stat Hospital Course (1) Ambulatory dysfunction: Fell while moving in to his new home with more support. Injured his knee and was not really able to walkfortunately imaging does not show any fractures or dislocations. Examines like a sprain or OA flare. Was able to ambulate in the room and feels safe to go back to his apartmentdischarge home. Conservative/supportive/symptomatic carebut if the knee does not improve, then consider MRI versus orthopedic evaluation. (2) Pneumonia of both lower lobes: Very nonspecificactually had similar findings described on CT from about a month ago as well. No respiratory symptoms, 94% on room airbut his lung exam does match the CT to a degree. He does have a small degree of aspirationI discussed with him that I wonder if this is not a little bit of a chronic aspiration pneumonitis. Augmentin. Outpatient follow-up. (3) Contusion of knee, left: (4) Contusion of hip, left: (5) Fall from other slipping, tripping, or stumbling: (6) Parkinsonism: Continue carbidopa levodopa (7) CAD (coronary artery disease): CAD/hypertension continue furosemide, aspirin, potassium chloride, warfarinfollow-up INR next week while on Augmentin (8) Diabetes: Home on home meds (9) Chronic kidney disease, stage 3a: (10) Aortic valve replaced: Continue anticoagulation with warfarin (11) Rheumatoid arthritis: Continue topiramate, prednisone Plan Stable for home Total Time Total Time Spent Total Time Spent (In Minutes): Less than 30 Discharge Plan Discharge Items Patient Disposition: Home - Self-Care Reason For Visit: S/P FALL, B/L PNEUMONIA, KNEE EFFUSION Discharge Diagnosis: Fall, knee sprain Condition on Discharge: Fair Activity: Resume your previous activity Non-emergency contact: Primary Care Provider Call non-emergency contact if: you have any medication questions, your symptoms worsen and your pain is not controlled Follow-up/Referrals: Josh Gaspar MD [Primary Care Provider] - Diet: Regular Addtl Attending Provider Instructions: Fall/knee sprain -fortunately the imaging did not show any fractures or dislocations. CTs do not always show soft tissue injuriesalthough there is really no suspicion of this on your examination eitheronly mention this because if your pain is not getting better, if the knee seems to be locking up, if it seems like things are not healing with conservative care, ice, and timethen reevaluation and possibly an MRI could be warranted. That said, I doubt this will need to be the case. As it relates to the questionable pneumoniathere is a mild hazy inflammatory change across the bases of your lungsit is really very nonspecific, and your breathing appears to be okay. I do wonder if there is a subtle degree of aspiration just creating a low-grade of inflammation. Given that we see it on CT, and I heard very mild crackles in your lungswe will treat with a short course of Augmentin. More than that, I definitely would like Dr. Chavez to be paying attention to your breathing, and definitely want you to be eating slowly, following the speech therapist recommendations to make sure that you minimize your risk of aspiration. Since antibiotics can sometimes increase your INR, have one checked early this coming week. Pending Studies at Discharge: No Stand-Alone Forms: My [facility], Smoking Cessation Medications and DC Order Prescriptions: New amoxicillin-pot clavulanate [Augmentin] 500-125 mg tablet 1 tab PO BID Qty: 10 0RF Continued Trelegy Ellipta 100-62.5-25 mcg blister with device 1 inh inhalation QAM Qty: 60 5RF finasteride 5 mg tablet 5 mg PO QAM Qty: 30 3RF prednisone 10 mg tablet 10 mg PO QAM cyclobenzaprine 5 mg tablet 2.5 mg PO HS PRN (Reason: muscle spasm) Qty: 90 3RF topiramate [Topamax] 100 mg tablet 100 mg PO BID 30 Days Qty: 180 4RF gabapentin 300 mg capsule See Rx Instructions .ROUTE .COMPLEX Qty: 270 4RF Rx Instructions: 2 caps po in AM and 1 cap po in PM; cholecalciferol (vitamin D3) [Vitamin D3] 50 mcg (2,000 unit) capsule 4,000 unit PO HS atorvastatin 40 mg tablet 40 mg PO HS fexofenadine [Karlee Allergy] 180 mg Tablet 180 mg PO QAM acetaminophen 325 mg Tablet 650 mg PO Q4H PRN (Reason: pain) Qty: 30 0RF Rx Instructions: OTC aspirin 81 mg Tablet,Delayed Release (Dr/Ec) 81 mg PO QAM Qty: 30 0RF Rx Instructions: OTC albuterol sulfate [Ventolin HFA] 90 mcg/actuation HFA aerosol inhaler 2 puff INHALATION Q4H PRN (Reason: Shortness Of Breath Or Wheezing) allopurinol 100 mg tablet 100 mg QPM levetiracetam [Keppra] 500 mg tablet 1,000 mg PO BID insulin aspart U-100 [Novolog Flexpen U-100 Insulin] 100 unit/mL (3 mL) insulin pen See Rx Instructions .ROUTE .COMPLEX Qty: 0 0RF Rx Instructions: supplemental scale for meal-time coverage and bed-time coverage. insulin glargine [Lantus Solostar U-100 Insulin] 100 unit/mL (3 mL) insulin pen 20 unit SUBCUT BID polyethylene glycol 3350 [Miralax] 17 gram/dose powder 17 g PO BID PRN (Reason: Constipation) furosemide 20 mg tablet 20 mg PO QAM Trulicity 1.5 mg/0.5 mL pen injector 1.5 mg SUBCUT WK Rx Instructions: saturdays carbidopa-levodopa 25-100 mg tablet 1 tab PO TID Rx Instructions: TAKE 1 TABLET BY MOUTH THREE TIMES A DAY gabapentin 300 mg Capsule 600 mg PO QAM sennosides [Senokot] 8.6 mg tablet 17.2 mg PO QAM warfarin 7.5 mg Tablet 7.5 mg PO 2XWK Rx Instructions: tuesdays and in evening warfarin 5 mg tablet 5 mg PO 5XWK Rx Instructions: take in the evening of sun,sun,sun,sat,sun potassium chloride [Klor-Con M20] 20 mEq tablet,ER particles/crystals 20 meq PO QAM magnesium 250 mg Tablet 250 mg PO QAM Discharge Orders: Discharge Order (Routine); Ordered 12/31/21 Ordered By: Jose R Sen/Other Patient Handouts: Managing Type 2 Diabetes Admission Data Admit Date/Time: 12/30/21 22:24 Attending Provider: Jose R Navas Admit Provider: Shayan Mims Primary Care Provider: Josh Gaspar Other Providers: Shayan Mims Other Interventions: Discharge Summary Assessment (RN) Last Done: 12/31/21 14:06 Coding Level of Care Code D/C DAY MANAGEMENT <30 MINS Diagnoses Ambulatory dysfunction R26.2 Pneumonia of both lower lobes J18.9 Contusion of knee, left S80.02XA Encounter type: initial encounter Contusion of hip, left S70.02XA Encounter type: initial encounter Fall from other slipping, tripping, or stumbling W01.0XXA Parkinsonism G20 CAD (coronary artery disease) I25.10 Coronary Disease-Associated Artery/Lesion type: [place] artery [place] vs. transplanted heart: [place] heart Associated angina: without angina Diabetes E11.42; Z79.4 Diabetes mellitus type: type 2 Diabetes mellitus medical terminologist insulin use: with chcf use Diabetes mellitus complication status: with neurologic complications Diabetes mellitus complication detail: with polyneuropathy Chronic kidney disease, stage 3a N18.3 Aortic valve replaced Z95.2 Rheumatoid arthritis M06.9 Rheumatoid arthritis location: unspecified site Rheumatoid factor presence: unspecified presence
[2021-12-31] MEDS ORDERED: allopurinoL 100 MG TAB PO SCH (21:00)
[2021-12-31] MEDS ORDERED: ATORVASTATIN 40 MG TAB PO SCH (21:00)
[2021-12-31] MEDS ORDERED: CHOLECALCIFEROL 1,000 UNITS 25 MCG TAB PO SCH (21:00)
[2022-01-03] MEDS ORDERED: WARFARIN SOD 7.5 MG TAB PO SCH (16:00)
== END 2021-12-31 16:31 | disposition home or self-care (01) | DRG 604 ==
LOC: ED 14:13 → SUATTDRO 22:24 → 2E 22:24

== ENCOUNTER 2022-02-26 14:55 | Inpatient (IN) ==
[2022-02-26 16:50] LABS: Basophils # (auto) 0.02 K/uL (0-0.2); Basophils % (auto) 0.4 %; Eosinophils # (auto) 0.06 K/uL (0-0.50); Eosinophils % (auto) 1.1 %; Hematocrit (blood only) 35.9 % (40.1-51.0); Hemoglobin 11.3 g/dl (14.0-18.0); Immature Granulocytes # (auto) 0.11 K/uL (0.00-0.02); Lymphocytes % (auto) 16.1 %; Mean Corpuscular Hemoglobin 27.5 pg (25.0-34.0); Mean Corpuscular Hgb Conc 31.5 g/dL (32.0-36.0); Mean Corpuscular Volume 87.3 fL (80.0-100.0); Mean Platelet Volume 10.2 fL (9.4-12.4); Monocytes # (auto) 0.22 K/uL (0.24-0.82); Monocytes % (auto) 3.9 %; Neutrophils # (auto) 4.28 K/uL (1.4-6.5); Neutrophils % (auto) 76.5 %; Platelet Count 175 K/uL (130-400); RDW Coefficient of Variation 15.2 % (11.5-14.5); RDW Standard Deviation 48.7 fL (36.4-46.3); Red Blood Count 4.11 M/uL (4.63-6.08); White Blood Count 5.59 K/ul (4.8-10.8)
--- NOTE | 2022-02-26 16:52 | Emergency Department Note ---
History of Present Illness General Chief complaint: Shortness of Breath/Dyspnea Stated complaint: SOB,COUGH,CONGESTION Time Seen by Provider: 02/26/22 16:37 History of Present Illness This 76 year old male presents to the emergency department for evaluation of shortness of breath. States that he started with SOB about 3-4 days ago. He is normally on 2L of O2 at night so sometimes is breathing is better first thing in the morning, but then gets progressively worse throughout the day. He does not have the capability to use his oxygen all day long because of how his larger oxygen tank is set up in his bedroom per patient. Has been using his albuterol inhaler with only partial improvement of his symptoms. His nebulizer recently broke per patient and states that his nebulizer usually works better than his inhaler. Has been coughing a lot and feels like he has to cough up phlegm, but only a small amount comes up. Has had a small amount of pink discharge in some of the phlegm that he is able to cough up. Having a lot of congestion and rattling in his chest. Also having a lot of postnasal drip per patient. Intermittent chest pain, but he thinks it is from breathing hard and it is over his entire chest. He has been seen by the wellness center at [place] at [facility] and ttried to go to [employer] [facility] yesterday, but they were full. History of Interstitial Lung Disease and Asthma and is prone to problems breathing per patient. Also has a history of Parkinson's and has a history of aspiration pneumonia. Has been feeling very weak and tired for the past 7-8 days and has been sleeping a lot during the day as well as at night. Denies any fevers, but states that he always feels cold. Has also had a headache over his frontal sinuses, but that has been there for a couple of weeks. He had a fall that was evaluated in the ER on 02/14/2022. CT scan of the head was negative at that time and his frontal sinus headache had been present prior to the CT scan with no change in his headache. He sees Dr. Sheikh and his PA of neurology, but states that they do not really address his headaches. Has been having more balance issues causing him to fall more frequently as well. He is on Coumadin for an artificial aortic valve and previous aortic repair. Home Medications Medication Instructions Recorded Confirmed Type atorvastatin 40 mg tablet 40 mg PO HS 05/28/20 02/26/22 History fexofenadine 180 mg tablet 180 mg PO QAM 02/11/21 02/26/22 History (Karlee Allergy) allopurinol 100 mg tablet 100 mg QPM 04/10/21 02/26/22 History levetiracetam 500 mg tablet 1,000 mg PO BID 06/30/21 02/26/22 History (Keppra) cholecalciferol (vitamin D3) 50 4,000 unit PO HS 07/14/21 02/26/22 History mcg (2,000 unit) capsule (Vitamin D3) prednisone 10 mg tablet 10 mg PO QAM 07/14/21 02/26/22 History insulin glargine 100 unit/mL (3 20 unit subcut BID 07/26/21 02/26/22 History mL) subcutaneous pen (Lantus Solostar U-100 Insulin) acetaminophen 325 mg tablet 650 mg PO Q4H PRN pain #30 tabs 08/04/21 02/26/22 Rx aspirin 81 mg tablet,delayed 81 mg PO QAM #30 tabs 08/04/21 02/26/22 Rx release fluticasone fur. 100 mcg-umeclid 1 inh inhalation QAM #60 ea 09/06/21 02/26/22 Rx 62.5 mcg-vilant 25 mcg inhalat.powder (Trelegy Ellipta) albuterol sulfate 90 mcg/actuation 2 puff inhalation Q4H PRN 09/27/21 02/26/22 History aerosol inhaler (Ventolin HFA) Shortness Of Breath Or Wheezing polyethylene glycol 3350 17 17 g PO BID PRN Constipation 10/04/21 02/26/22 History gram/dose oral powder (Miralax) carbidopa 25 mg-levodopa 100 mg 1 tab PO TID 11/24/21 02/26/22 History tablet dulaglutide 1.5 mg/0.5 mL 1.5 mg subcut WK 11/24/21 02/26/22 History subcutaneous pen injector (Trulicity) furosemide 20 mg tablet 20 mg PO QAM 11/24/21 02/26/22 History magnesium 250 mg tablet 250 mg PO QAM 11/24/21 02/26/22 History potassium chloride 20 mEq 20 meq PO QAM 11/24/21 02/26/22 History tablet,extended release(part/cryst) (Klor-Con M) sennosides 8.6 mg tablet (Senokot) 17.2 mg PO QAM 11/24/21 02/26/22 History warfarin 5 mg tablet See Rx Instructions .Route .COMPLEX 11/24/21 02/26/22 History finasteride 5 mg tablet 5 mg PO QAM #30 tabs 12/12/21 02/26/22 Rx topiramate 100 mg tablet (Topamax) 100 mg PO BID 30 days #180 tabs 12/29/21 02/26/22 Rx tizanidine 2 mg capsule (Zanaflex) 2 mg PO HS PRN muscle spasticity 01/03/22 02/26/22 Rx #30 caps gabapentin 600 mg tablet 600 mg PO BID #60 tabs 02/15/22 02/26/22 Rx insulin aspart U-100 100 unit/mL 0 sliding scale dose subcut ACHS 02/26/22 02/26/22 History (3 mL) subcutaneous pen (Novolog Flexpen U-100 Insulin aspart) Allergies Allergy/AdvReac Type Severity Reaction Status Date / Time Iodinated Contrast Media Allergy Severe Anaphylaxis Verified 02/26/22 18:34 shellfish derived Allergy Severe Anaphylaxis Verified 02/26/22 18:34 tamsulosin [From Flomax] Allergy Intermediate Itching Verified 02/26/22 18:34 Tetanus Vaccines and Toxoid Allergy Unknown Unknown Verified 02/26/22 18:34 Past Med/Surg History Medical History Acute dehydration Acute left-sided muscle weakness Anemia CAD (coronary artery disease) Cerebrovascular accident Chronic respiratory failure with hypoxia 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 mild R sided wkness. attending outpatient physical therapy w/ good improvement in strength (5+/5 strength of all 4 extremities as of 05/28/20) Syncope Weakness Weakness Surgical History H/O hernia repair History of cholecystectomy History of fusion of cervical spine History of heart artery stent History of lung biopsy 2019 History of partial nephrectomy Family History Mother , age 87 of pulmonary issues Rheumatoid arthritis Father , in his mid 80s of a stroke Stroke Other Coronary heart disease Social History Smoking Status: Never smoker Second Hand Exposure: No; Hx Alcohol Use: No Hx Substance Use: No Preferred Language: Greek Communication Ability: Effective Hearing Ability: Hard of Hearing Hvac Residential Service Technician Required: No Beliefs That Will Affect Care: None marital status: / Current Living Situation: Alone Current Living Situation Comment: lives alone in a one story house in [email or web address] current occupational status: retired 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 and A total of 10 systems reviewed and were otherwise negative Physical Exam Vital Signs Vital Signs - 24 hr 02/26/22 15:24 02/26/22 15:26 02/26/22 16:33 Temperature 37 C Temperature Source Temporal Artery Scan Pulse Rate 99 H Pulse Rate [Apical] Pulse Rhythm Regular Pulse Strength Normal Respiratory Rate 20 Respiratory Effort / Characteristics Non-Labored Spontaneous Respiratory Depth Normal Respiratory Pattern Regular Blood Pressure 153/83 H Blood Pressure [Right Arm] Blood Pressure Mean 106 Blood Pressure Mean [Right Arm] Blood Pressure Position Sitting Pulse Oximetry 96 97 Oxygen Delivery Method Room Air Room Air Room Air Oxygen Flow Rate Sepsis Recent Fever Within 48 Hours No Sepsis New/Unexplained Change in Mental Status N/A Sepsis Action Taken by Nursing No Action Required 02/26/22 16:34 02/26/22 16:34 02/26/22 16:23 Temperature Temperature Source Pulse Rate Pulse Rate [Apical] 76 Pulse Rhythm Pulse Strength Respiratory Rate 22 Respiratory Effort / Characteristics Non-Labored Spontaneous Non-Labored Spontaneous Respiratory Depth Normal Respiratory Pattern Blood Pressure Blood Pressure [Right Arm] 145/84 H Blood Pressure Mean Blood Pressure Mean [Right Arm] 104 Blood Pressure Position Pulse Oximetry 97 97 Oxygen Delivery Method Room Air Room Air Room Air Oxygen Flow Rate Sepsis Recent Fever Within 48 Hours Sepsis New/Unexplained Change in Mental Status Sepsis Action Taken by Nursing 02/26/22 16:41 02/26/22 18:00 02/26/22 17:45 Temperature Temperature Source Pulse Rate Pulse Rate [Apical] 67 Pulse Rhythm Pulse Strength Respiratory Rate 22 Respiratory Effort / Characteristics Non-Labored Spontaneous Non-Labored Spontaneous Respiratory Depth Normal Normal Respiratory Pattern Regular Blood Pressure Blood Pressure [Right Arm] 169/76 H Blood Pressure Mean Blood Pressure Mean [Right Arm] 107 Blood Pressure Position Pulse Oximetry 99 88 L Oxygen Delivery Method Room Air Nasal Cannula Room Air Oxygen Flow Rate 3 Sepsis Recent Fever Within 48 Hours Sepsis New/Unexplained Change in Mental Status Sepsis Action Taken by Nursing Vital Signs: Reviewed vital signs on nurse's notes, temperature 37C orally. GENERAL: 76-year-old male, in no acute distress, non-diaphoretic, well-developed well-nourished. SKIN: The skin was without rashes, erythema, edema, or bruising. Capillary reflex less than 2 seconds. HEAD: Normocephalic atraumatic. EARS: External auditory canals clear, tympanic membrane pearly tomas without erythema or effusion. No tragus tenderness. No mastoid tenderness. EYES: Pupils equal round and reactive to light and accommodation. Conjunctivae without injection, sclerae without icterus. Extraocular movements intact. NOSE: Patent, turbinates inflamed with no discharge. No significant sinus tenderness. Sinuses transilluminate well. MOUTH: Mucous membranes moist. Airway patent, uvula midline. Pharynx without erythema, edema, or exudate. Pharynx with a small amount of postnasal drip. No evidence for peritonsillar abscess. NECK: Supple without nuchal rigidity. No lymphadenopathy. HEART: Regular rate and rhythm without murmurs gallops or rubs. LUNGS: Clear to auscultation bilaterally. Scattered wheezes and rhonchi throughout. No accessory muscle use or retractions. ABDOMEN: Positive bowel sounds x 4. Normal tympanic percussion. Soft, nontender, without masses or organomegaly. Negative axillary or inguinal adenopathy. NEURO: Patient was alert and oriented to person place and time. PSYCH: The patient has a somewhat flat affect on exam, but is cooperative with the exam. No suicidal or homicidal ideation. Course Administered Medications Discontinued Medications Albuterol (Albut/Ipratrop 3mg/0.5mg Neb 3 Ml Vial) 3 ml NEB NOW STA; Protocol Stop: 02/26/22 17:11 Last Admin: 02/26/22 17:28 Dose: 3 ml Documented By: JUSTYNA Medical Decision Making Differential Diagnosis Differential diagnosis includes URI, bronchitis, pneumonia, pneumothorax, hemothorax, PE, MN, pericarditis, myocarditis, airway obstruction, aspiration, pulmonary edema, asthma, COPD, CHF, pleurisy, metabolic acidosis, anemia, neoplasm, or others. Laboratory Data Attestation: I reviewed the patient's lab results. Result diagrams: 02/26/22 16:32 02/26/22 16:32 Lab Results 02/26/22 02/26/22 02/26/22 Range/Units 16:32 16:32 16:32 WBC 5.59 (4.8-10.8) K/ul RBC 4.11 L (4.63-6.08) M/uL Hgb 11.3 L (14.0-18.0) g/dl Hct 35.9 L (40.1-51.0) % MCV 87.3 (80.0-100.0) fL MCH 27.5 (25.0-34.0) pg MCHC 31.5 L (32.0-36.0) g/dL RDW Std Deviation 48.7 H (36.4-46.3) fL RDW Coeff of Lianne 15.2 H (11.5-14.5) % Plt Count 175 (130-400) K/uL MPV 10.2 (9.4-12.4) fL Immature Gran % (Auto) 2.0 % Neut % (Auto) 76.5 % Lymph % (Auto) 16.1 % [place] % (Auto) 3.9 % Eos % (Auto) 1.1 % Baso % (Auto) 0.4 % Neut # (Auto) 4.28 (1.4-6.5) K/uL Lymph # (Auto) 0.90 L (1.2-3.4) K/uL [place] # (Auto) 0.22 L (0.24-0.82) K/uL Eos # (Auto) 0.06 (0-0.50) K/uL Baso # (Auto) 0.02 (0-0.2) K/uL Immature Gran # (Auto) 0.11 H (0.00-0.02) K/uL PT 19.2 H (9.0-12.0) Seconds INR 1.9 H (0.9-1.1) APTT 31.9 H (21.0-31.0) Seconds PTT Ratio 1.2 Sodium 139 (136-145) mmol/L Potassium 4.0 (3.5-5.1) mmol/L Chloride 108 H (98-107) mmol/L Carbon Dioxide 24 (21-32) mmol/L Anion Gap 7 (3-11) BUN 33 H (6-23) mg/dl Creatinine 1.32 (0.6-1.4) mg/dl Est Cr Clr Drug Dosing 59.7 ml/min Est GFR ( Amer) 60.3 ml/min Est GFR (Non-Af Amer) 52.0 ml/min BUN/Creatinine Ratio 25.0 H (10-20) Glucose 199 H (70-99(Fasting)) mg/dl Calcium 9.1 (8.5-10.1) mg/dl Magnesium 1.9 (1.7-2.4) mg/dl Total Bilirubin 0.4 (0.2-1.0) mg/dl AST 35 (13-39) U/L ALT 35 (7-52) U/L Alkaline Phosphatase 91 (34-104) U/L Troponin I High Sens (0-20) pg/ml Total Protein 6.8 (6.0-8.3) gm/dl Albumin 3.9 (3.4-5.0) gm/dl Globulin 2.9 (2.5-4.0) gm/dl Albumin/Globulin Ratio 1.3 (0.9-2) TSH (0.300-4.500) uIu/ml Urine Color Urine Appearance (Clear) Urine pH (4.5-7.5) Ur Specific [place] (1.000-1.030) Urine Protein (Negative) Urine Glucose (UA) (Negative) Urine Ketones (Negative) Urine Blood (Negative) Urine Nitrite (Negative) Urine Bilirubin (Negative) Urine Urobilinogen (Negative) Ur Leukocyte Esterase (Negative) SARS-CoV-2 (PCR) (Negative) Influenza Type A (PCR) (Neg) Influenza Type B (PCR) (Neg) RSV (RT-PCR) (Neg) 02/26/22 02/26/22 02/26/22 Range/Units 16:32 16:32 17:26 WBC (4.8-10.8) K/ul RBC (4.63-6.08) M/uL Hgb (14.0-18.0) g/dl Hct (40.1-51.0) % MCV (80.0-100.0) fL MCH (25.0-34.0) pg MCHC (32.0-36.0) g/dL RDW Std Deviation (36.4-46.3) fL RDW Coeff of Lianne (11.5-14.5) % Plt Count (130-400) K/uL MPV (9.4-12.4) fL Immature Gran % (Auto) % Neut % (Auto) % Lymph % (Auto) % [place] % (Auto) % Eos % (Auto) % Baso % (Auto) % Neut # (Auto) (1.4-6.5) K/uL Lymph # (Auto) (1.2-3.4) K/uL [place] # (Auto) (0.24-0.82) K/uL Eos # (Auto) (0-0.50) K/uL Baso # (Auto) (0-0.2) K/uL Immature Gran # (Auto) (0.00-0.02) K/uL PT (9.0-12.0) Seconds INR (0.9-1.1) APTT (21.0-31.0) Seconds PTT Ratio Sodium (136-145) mmol/L Potassium (3.5-5.1) mmol/L Chloride (98-107) mmol/L Carbon Dioxide (21-32) mmol/L Anion Gap (3-11) BUN (6-23) mg/dl Creatinine (0.6-1.4) mg/dl Est Cr Clr Drug Dosing ml/min Est GFR ( Amer) ml/min Est GFR (Non-Af Amer) ml/min BUN/Creatinine Ratio (10-20) Glucose (70-99(Fasting)) mg/dl Calcium (8.5-10.1) mg/dl Magnesium (1.7-2.4) mg/dl Total Bilirubin (0.2-1.0) mg/dl AST (13-39) U/L ALT (7-52) U/L Alkaline Phosphatase (34-104) U/L Troponin I High Sens 8.2 (0-20) pg/ml Total Protein (6.0-8.3) gm/dl Albumin (3.4-5.0) gm/dl Globulin (2.5-4.0) gm/dl Albumin/Globulin Ratio (0.9-2) TSH 0.957 (0.300-4.500) uIu/ml Urine Color Urine Appearance (Clear) Urine pH (4.5-7.5) Ur Specific [place] (1.000-1.030) Urine Protein (Negative) Urine Glucose (UA) (Negative) Urine Ketones (Negative) Urine Blood (Negative) Urine Nitrite (Negative) Urine Bilirubin (Negative) Urine Urobilinogen (Negative) Ur Leukocyte Esterase (Negative) SARS-CoV-2 (PCR) NEGATIVE (Negative) Influenza Type A (PCR) Negative (Neg) Influenza Type B (PCR) Negative (Neg) RSV (RT-PCR) Negative (Neg) 02/26/22 Range/Units 20:28 WBC (4.8-10.8) K/ul RBC (4.63-6.08) M/uL Hgb (14.0-18.0) g/dl Hct (40.1-51.0) % MCV (80.0-100.0) fL MCH (25.0-34.0) pg MCHC (32.0-36.0) g/dL RDW Std Deviation (36.4-46.3) fL RDW Coeff of Lianne (11.5-14.5) % Plt Count (130-400) K/uL MPV (9.4-12.4) fL Immature Gran % (Auto) % Neut % (Auto) % Lymph % (Auto) % [place] % (Auto) % Eos % (Auto) % Baso % (Auto) % Neut # (Auto) (1.4-6.5) K/uL Lymph # (Auto) (1.2-3.4) K/uL [place] # (Auto) (0.24-0.82) K/uL Eos # (Auto) (0-0.50) K/uL Baso # (Auto) (0-0.2) K/uL Immature Gran # (Auto) (0.00-0.02) K/uL PT (9.0-12.0) Seconds INR (0.9-1.1) APTT (21.0-31.0) Seconds PTT Ratio Sodium (136-145) mmol/L Potassium (3.5-5.1) mmol/L Chloride (98-107) mmol/L Carbon Dioxide (21-32) mmol/L Anion Gap (3-11) BUN (6-23) mg/dl Creatinine (0.6-1.4) mg/dl Est Cr Clr Drug Dosing ml/min Est GFR ( Amer) ml/min Est GFR (Non-Af Amer) ml/min BUN/Creatinine Ratio (10-20) Glucose (70-99(Fasting)) mg/dl Calcium (8.5-10.1) mg/dl Magnesium (1.7-2.4) mg/dl Total Bilirubin (0.2-1.0) mg/dl AST (13-39) U/L ALT (7-52) U/L Alkaline Phosphatase (34-104) U/L Troponin I High Sens (0-20) pg/ml Total Protein (6.0-8.3) gm/dl Albumin (3.4-5.0) gm/dl Globulin (2.5-4.0) gm/dl Albumin/Globulin Ratio (0.9-2) TSH (0.300-4.500) uIu/ml Urine Color Yellow Urine Appearance Clear (Clear) Urine pH 8.0 H (4.5-7.5) Ur Specific [place] 1.012 (1.000-1.030) Urine Protein Negative (Negative) Urine Glucose (UA) Negative (Negative) Urine Ketones Negative (Negative) Urine Blood Negative (Negative) Urine Nitrite Negative (Negative) Urine Bilirubin Negative (Negative) Urine Urobilinogen Negative (Negative) Ur Leukocyte Esterase Negative (Negative) SARS-CoV-2 (PCR) (Negative) Influenza Type A (PCR) (Neg) Influenza Type B (PCR) (Neg) RSV (RT-PCR) (Neg) Imaging Data Radiologist's Impression: Chest X-Ray 02/26/22 15:27 XR chest 1V portable CLINICAL HISTORY: Shortness of breath. COMPARISON STUDY: Chest CT December 30, 2021. Chest radiograph February 14, 2022. FINDINGS: There is no pneumothorax or pleural effusion. Linear left basilar opacity reflects atelectasis. There is no consolidation to suggest pneumonia. Right basilar is noted. There are median sternotomy wires and a prosthetic aortic valve. Cardiomegaly is unchanged. There is no evidence for pulmonary edema. IMPRESSION: 1. No significant change in bibasilar opacities. Right basilar opacity favors atelectasis or scarring however an infectious process could appear similar. Left basilar opacity reflects atelectasis. 2. Cardiomegaly. No evidence for pulmonary edema. ACT 112: Negative or not required by law. Electronically signed by: John Paul Drummond M.D. 02/26/2022 5:[address] 02/26/22 18:14 CT OF THE CHEST WITHOUT IV CONTRAST CLINICAL HISTORY: Shortness of breath, hypoxia COMPARISON STUDY: Chest CT 6 of her second 2021 and chest radiograph performed earlier today. CT DOSE: 732.30 mGy.cm TECHNIQUE: Axial images of the chest were obtained without IV contrast. Images were reviewed in the axial, sagittal, and coronal planes. IV contrast was not administered for this examination. Automated exposure control was utilized for the study. A dose lowering technique was utilized adhering to the principles of ALARA. FINDINGS: Prosthetic aortic valve is noted. Mild cardiomegaly is unchanged. There is moderate coronary artery calcification. No pericardial effusion is noted. Mild dilatation of the ascending aorta, measuring 4 cm is unchanged. No pneumothorax or pleural effusion is present. No enlarged axillary, mediastinal or hilar lymph nodes are present. Central airways are patent. Right lower lobe subpleural opacity is unchanged from earlier exams. This favors scarring. Small alveolar airspace opacities throughout the lungs are again noted. These have been shown on multiple prior studies. These have improved when compared to CT of December 30, 2021. No confluent consolidation. Central airways are patent. No acute fracture is identified within the visualized bony thorax. Gastric lap band is incidentally noted. Gallbladder is surgically absent. Postoperative findings within the left lung base are noted. IMPRESSION: 1. Redemonstration of small alveolar opacities throughout the lungs, improved when compared to CT of December 30, 2021. These have been shown on multiple prior exams. These are nonspecific but primary considerations include a chronic infectious etiology or hypersensitivity pneumonitis. No consolidation. 2. Otherwise, unchanged appearance of the chest. ACT 112: Negative or not required by law. Electronically signed by: John Paul Drummond M.D. 02/26/2022 7:38 PM MDM Narrative I examined the patient. An IV lock was placed and labs were drawn. Continuous cardiac exercise physiologist: Order was placed for continuous cardiac exercise physiologist. Patient was placed on the cardiac exercise physiologist. Patient was noted to be in normal sinus rhythm at an initial rate of 80 bpm. EKG was interpreted by myself and shows sinus rhythm with premature supraventricular complexes at 85 bpm with no significant change from his previous EKGs. Troponin was normal. Hemoglobin was low at 11.3, but white blood cell count was normal. INR 1.9 on Coumadin. BUN elevated at 33 and glucose 199, but CMP otherwise essentially unremarkable. TSH normal at 0.957. Urinalysis negative for UTI. COVID, RSV, and influenza were negative. Chest x-ray was reviewed by myself and read by radiology as above and shows no significant change in bibasilar opacities. The right basilar opacity favors atelectasis or scarring, however, an infectious process could appear similar. Left basilar opacity reflect atelectasis. Cardiomegaly with no evidence for pulmonary edema. The patient was given a DuoNeb treatment with improvement of his wheezing, but persisting scattered rhonchi. The patient's pulse ox dropped to 88% on room air after the DuoNeb treatment. The patient was placed on 3 L of oxygen by nasal cannula with improvement of his pulse ox to 99%. The patient stated that he felt much better on the oxygen and his shortness of breath improved on the oxygen as well. CT scan of the chest without contrast due to his IV contrast allergy was reviewed by myself and read by radiology as above and showed small alveolar opacities throughout the lungs, but these appear improved compared to CT scan of December 2021. These have also been shown on multiple prior exams and are nonspecific, but primary considerations include a chronic infectious etiology or hypersensitivity pneumonitis. No consolidation. I had a meaningful discussion about this patient with Dr. Mcfadden. They agree with my assessment and the treatment plan. The patient was given Solu- Medrol 60 mg IV. I discussed discharge with the patient. I discussed that I could treat him with a course of oral steroids and he could follow-up with his family doctor in the morning to discuss 24-hour O2 use or availability as well as an order for a new nebulizer machine. However, the patient stated that he still felt very weak, tired, and short of breath off of the oxygen and was concerned about his frequent falls at home. He did not feel like he could be discharged home at this time. I discussed the case with the on-call hospitalist who agreed to admit the patient for further evaluation and treatment. Please refer to their dictation for further details. The patient's care was soler sferred in stable condition. Impression & Plan SOB (shortness of breath), Hypoxia Discharge Plan Visit Data Chief Complaint: Shortness of Breath/Dyspnea Stated Complaint: SOB,COUGH,CONGESTION ED Provider: Hyacinth Mcfadden ED Midlevel Provider: Conchis Nascimento. Discharge Problem: SOB (shortness of breath), Hypoxia Patient Disposition: Admitted As Inpatient Condition: Good Forms Stand Alone Forms: [facility] iRx Reminder Prescriptions Prescriptions: No Action Trelegy Ellipta 100-62.5-25 mcg blister with device 1 inh inhalation QAM Qty: 60 5RF tizanidine [Zanaflex] 2 mg capsule 2 mg PO HS PRN (Reason: muscle spasticity) Qty: 30 2RF gabapentin 600 mg tablet 600 mg PO BID Qty: 60 2RF finasteride 5 mg tablet 5 mg PO QAM Qty: 30 3RF prednisone 10 mg tablet 10 mg PO QAM topiramate [Topamax] 100 mg tablet 100 mg PO BID 30 Days Qty: 180 4RF cholecalciferol (vitamin D3) [Vitamin D3] 50 mcg (2,000 unit) capsule 4,000 unit PO HS atorvastatin 40 mg tablet 40 mg PO HS fexofenadine [Karlee Allergy] 180 mg Tablet 180 mg PO QAM acetaminophen 325 mg Tablet 650 mg PO Q4H PRN (Reason: pain) Qty: 30 0RF Rx Instructions: OTC aspirin 81 mg Tablet,Delayed Release (Dr/Ec) 81 mg PO QAM Qty: 30 0RF Rx Instructions: OTC albuterol sulfate [Ventolin HFA] 90 mcg/actuation HFA aerosol inhaler 2 puff INHALATION Q4H PRN (Reason: Shortness Of Breath Or Wheezing) allopurinol 100 mg tablet 100 mg QPM levetiracetam [Keppra] 500 mg tablet 1,000 mg PO BID insulin glargine [Lantus Solostar U-100 Insulin] 100 unit/mL (3 mL) insulin pen 20 unit SUBCUT BID polyethylene glycol 3350 [Miralax] 17 gram/dose powder 17 g PO BID PRN (Reason: Constipation) furosemide 20 mg tablet 20 mg PO QAM Trulicity 1.5 mg/0.5 mL pen injector 1.5 mg SUBCUT WK Rx Instructions: [place] carbidopa-levodopa 25-100 mg tablet 1 tab PO TID Rx Instructions: TAKE 1 TABLET BY MOUTH THREE TIMES A DAY sennosides [Senokot] 8.6 mg tablet 17.2 mg PO QAM warfarin 5 mg tablet See Rx Instructions .ROUTE .COMPLEX Rx Instructions: 5 mg orally; TAKES 5 MG ON SUN, SUN, SUN, SUN & SAT. THEN TAKES 7.5 MG ON & . TAKES QPM. potassium chloride [Klor-Con M20] 20 mEq tablet,ER particles/crystals 20 meq PO QAM magnesium 250 mg Tablet 250 mg PO QAM insulin aspart U-100 [Novolog Flexpen U-100 Insulin] 100 unit/mL (3 mL) insulin pen 0 sliding scale dose subcut ACHS Rx Instructions: supplemental scale for meal-time coverage and bed-time coverage. Referrals Referrals: Josh Gaspar MD [Primary Care Provider] -
[2022-02-26 17:01] LABS: INR 1.9 (0.9-1.1); Partial Thromboplastin Ratio 1.2; Partial Thromboplastin Time 31.9 Seconds (21.0-31.0); Prothrombin Time 19.2 Seconds (9.0-12.0)
[2022-02-26 17:08] LABS: Albumin Globulin Ratio 1.3 (0.9-2); Albumin Level 3.9 gm/dl (3.4-5.0); Bilirubin,Total 0.4 mg/dl (0.2-1.0); Calcium 9.1 mg/dl (8.5-10.1); Creatinine Clr Calc Pharmacy 59.7 ml/min; Est GFR (African American) 60.3 ml/min; Globulin 2.9 gm/dl (2.5-4.0); Magnesium 1.9 mg/dl (1.7-2.4); Total Protein 6.8 gm/dl (6.0-8.3)
[2022-02-26] MEDS ORDERED: ALBUT/IPRATROP 3MG/0.5MG NEB 3 ML VIAL NEB STA (17:10)
--- NOTE | 2022-02-26 17:12 | XRay Report ---
XR chest 1V portable CLINICAL HISTORY: Shortness of breath. COMPARISON STUDY: Chest CT December 30, 2021. Chest radiograph February 14, 2022. FINDINGS: There is no pneumothorax or pleural effusion. Linear left basilar opacity reflects atelecta sis. There is no consolidation to suggest pneumonia. Right basilar is noted. There are median sternot denisha wires and a prosthetic aortic valve. Cardiomegaly is unchanged. There is no evidence for pulmonar y edema. IMPRESSION: 1. No significant change in bibasilar opacities. Right basilar opacity favors atelectasis or scarring however an infectious process could appear similar. Left basilar opacity reflects atelectasis. 2. Cardiomegaly. No evidence for pulmonary edema. ACT 112: Negative or not required by law. Electronically signed by: John Paul Drummond M.D. 02/26/2022 5:11 PM
[2022-02-26 18:16] LABS: Influenza A virus by PCR Negative (Neg); Influenza B virus by PCR Negative (Neg); RSV by PCR Negative (Neg); SARS CoV2 RNA(COVID-19)Cepheid NEGATIVE (Negative)
--- NOTE | 2022-02-26 19:40 | CT Scan Report ---
CT OF THE CHEST WITHOUT IV CONTRAST CLINICAL HISTORY: Shortness of breath, hypoxia COMPARISON STUDY: Chest CT 6 of her second 2021 and chest radiograph performed earlier today. CT DOSE: 732.30 mGy.cm TECHNIQUE: Axial images of the chest were obtained without IV contrast. Images were reviewed in the axial, sagittal, and coronal planes. IV contrast was not administered for this examination. Automat ed exposure control was utilized for the study. A dose lowering technique was utilized adhering to t he principles of ALARA. FINDINGS: Prosthetic aortic valve is noted. Mild cardiomegaly is unchanged. There is moderate graham ry artery calcification. No pericardial effusion is noted. Mild dilatation of the ascending aorta, me asuring 4 cm is unchanged. No pneumothorax or pleural effusion is present. No enlarged axillary, medi astinal or hilar lymph nodes are present. Central airways are patent. Right lower lobe subpleural opa city is unchanged from earlier exams. This favors scarring. Small alveolar airspace opacities through out the lungs are again noted. These have been shown on multiple prior studies. These have improved w hen compared to CT of December 30, 2021. No confluent consolidation. Central airways are patent. No a cute fracture is identified within the visualized bony thorax. Gastric lap band is incidentally noted . Gallbladder is surgically absent. Postoperative findings within the left lung base are noted. IMPRESSION: 1. Redemonstration of small alveolar opacities throughout the lungs, improved when compared to CT of December 30, 2021. These have been shown on multiple prior exams. These are nonspecific but primary c onsiderations include a chronic infectious etiology or hypersensitivity pneumonitis. No consolidation . 2. Otherwise, unchanged appearance of the chest. ACT 112: Negative or not required by law. Electronically signed by: John Paul Drummond M.D. 02/26/2022 7:38 PM
--- NOTE | 2022-02-26 20:19 | Emergency Department Note ---
ED Visit Note I agree with the diagnosis and management decisions and have been personally involved in the case. Patient was given IV Solu-Medrol 60 mg, DuoNeb treatment. He did have a temporary desaturation after the nebulizer. Please see Conchis Nascimento PA-C's notes for further details of the history, physical and visit. .
[2022-02-26] MEDS ORDERED: methylPREDNISolone 60 MG in SYRINGE 1 ML IV STA (20:25)
[2022-02-26 20:50] LABS: Appearance Urine Clear (Clear); Bilirubin Urine Negative (Negative); Blood Urine Negative (Negative); Color Urine Yellow; Glucose Urine UA Negative (Negative); Ketones Urine Negative (Negative); Leukocyte Esterase Urine Negative (Negative); Nitrite Urine Negative (Negative); Protein Urine Negative (Negative); Specific Gravity Urine 1.012 (1.000-1.030); Urobilinogen Urine Negative (Negative)
--- NOTE | 2022-02-26 21:30 | History & Physical Report ---
Date of Service February 26, 2022 Assessment & Plan (1) SOB (shortness of breath): Plan: Chronic shortness of breath with hypoxia- Hold prednisone which she has been on for RA Given Solu-Medrol 60 mg IV from the ED Cymetra 40 mg IV every 12 hours Continue nebulizers Nasal cannula oxygen, titrate to keep pulse ox 92-94% (2) Hypoxia: (3) Ambulatory dysfunction: Plan: Ambulatory dysfunction-combination of idiopathic polyneuropathy and possible need for adjustment of Parkinson medications Consult PT/OT Consult neurology Dr. Sheikh (4) Idiopathic polyneuropathy: Plan: Continue gabapentin, Keppra, topiramate and as needed tizanidine (5) Parkinsonism: Plan: Continue carbidopa/levodopa (6) Diabetes: Plan: Decrease glargine from 20 units subcu twice daily to 10 units subcu twice daily due to decreased oral intake, however, being on IV Solu-Medrol may make need to return to normal dosing Hold Trulicity Placed on Accu-Cheks before meals and at bedtime with NovoLog coverage per scale (7) CAD (coronary artery disease): Plan: CAD/hypertension- Continue aspirin Hold furosemide Give 500 cc of normal saline with potassium at 60 mils per hour (8) Chronic kidney disease, stage 3a: (9) Rheumatoid arthritis: Plan: Changing prednisone to Solu-Medrol as noted above, return to prednisone after Solu-Medrol taper (10) Aortic valve replaced: Plan: Continue warfarin, with daily PT/INR History of Present Illness Chief Complaint: The patient presents to the emergency department with symptoms of 3 to 4 days of worsening weakness, shortness of breath, dyspnea on exertion and decreased appetite Primary Care Provider: Josh Gaspar MD The patient is a 76-year-old male with a past medical history including idiopathic polyneuropathy, by lobar pneumonia, ambulatory dysfunction, frequent falls, prostate cancer with LUTS, parkinsonism, seizure-like activity, lower GI bleed, diabetes mellitus, CAD, CKD, status post AVR, and steroid-dependent rheumatoid arthritis. The patient was most recently admitted from 12/30-12/31/2021 for similar symptoms, which improved prior to discharge. Over the past 3 to 4 days he has developed progressively worsening symptoms of generalized weakness, fatigue, shortness of breath and dyspnea on exertion. He has found it significantly more physically difficult to walk, and is attributing this to his underlying parkinsonism, for which she follows with neurology Dr. Sheikh Allergies Allergy/AdvReac Type Severity Reaction Status Date / Time Iodinated Contrast Media Allergy Severe Anaphylaxis Verified 02/26/22 18:34 shellfish derived Allergy Severe Anaphylaxis Verified 02/26/22 18:34 tamsulosin [From Flomax] Allergy Intermediate Itching Verified 02/26/22 18:34 Tetanus Vaccines and Toxoid Allergy Unknown Unknown Verified 02/26/22 18:34 Home Medications Medication Instructions Recorded Confirmed Type atorvastatin 40 mg tablet 40 mg PO HS 05/28/20 02/26/22 History fexofenadine 180 mg tablet 180 mg PO QAM 02/11/21 02/26/22 History (Karlee Allergy) allopurinol 100 mg tablet 100 mg QPM 04/10/21 02/26/22 History levetiracetam 500 mg tablet 1,000 mg PO BID 06/30/21 02/26/22 History (Keppra) cholecalciferol (vitamin D3) 50 4,000 unit PO HS 07/14/21 02/26/22 History mcg (2,000 unit) capsule (Vitamin D3) prednisone 10 mg tablet 10 mg PO QAM 07/14/21 02/26/22 History insulin glargine 100 unit/mL (3 20 unit subcut BID 07/26/21 02/26/22 History mL) subcutaneous pen (Lantus Solostar U-100 Insulin) acetaminophen 325 mg tablet 650 mg PO Q4H PRN pain #30 tabs 08/04/21 02/26/22 Rx aspirin 81 mg tablet,delayed 81 mg PO QAM #30 tabs 08/04/21 02/26/22 Rx release fluticasone fur. 100 mcg-umeclid 1 inh inhalation QAM #60 ea 09/06/21 02/26/22 Rx 62.5 mcg-vilant 25 mcg inhalat.powder (Trelegy Ellipta) albuterol sulfate 90 mcg/actuation 2 puff inhalation Q4H PRN 09/27/21 02/26/22 History aerosol inhaler (Ventolin HFA) Shortness Of Breath Or Wheezing polyethylene glycol 3350 17 17 g PO BID PRN Constipation 10/04/21 02/26/22 History gram/dose oral powder (Miralax) carbidopa 25 mg-levodopa 100 mg 1 tab PO TID 11/24/21 02/26/22 History tablet dulaglutide 1.5 mg/0.5 mL 1.5 mg subcut WK 11/24/21 02/26/22 History subcutaneous pen injector (Trulicity) furosemide 20 mg tablet 20 mg PO QAM 11/24/21 02/26/22 History magnesium 250 mg tablet 250 mg PO QAM 11/24/21 02/26/22 History potassium chloride 20 mEq 20 meq PO QAM 11/24/21 02/26/22 History tablet,extended release(part/cryst) (Klor-Con M) sennosides 8.6 mg tablet (Senokot) 17.2 mg PO QAM 11/24/21 02/26/22 History warfarin 5 mg tablet See Rx Instructions .Route .COMPLEX 11/24/21 02/26/22 History finasteride 5 mg tablet 5 mg PO QAM #30 tabs 12/12/21 02/26/22 Rx topiramate 100 mg tablet (Topamax) 100 mg PO BID 30 days #180 tabs 12/29/21 02/26/22 Rx tizanidine 2 mg capsule (Zanaflex) 2 mg PO HS PRN muscle spasticity 01/03/22 02/26/22 Rx #30 caps gabapentin 600 mg tablet 600 mg PO BID #60 tabs 02/15/22 02/26/22 Rx insulin aspart U-100 100 unit/mL 0 sliding scale dose subcut ACHS 02/26/22 02/26/22 History (3 mL) subcutaneous pen (Novolog Flexpen U-100 Insulin aspart) Past Med/Surg History Medical History Acute dehydration Acute left-sided muscle weakness Anemia CAD (coronary artery disease) Cerebrovascular accident Chronic respiratory failure with hypoxia 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 mild R sided wkness. attending outpatient physical therapy w/ good improvement in strength (5+/5 strength of all 4 extremities as of 05/28/20) Syncope Weakness Weakness Surgical History H/O hernia repair History of cholecystectomy History of fusion of cervical spine History of heart artery stent History of lung biopsy 2019 History of partial nephrectomy Family History Mother , age 87 of pulmonary issues Rheumatoid arthritis Father , in his mid 80s of a stroke Stroke Other Coronary heart disease Social History Smoking Status: Never smoker Second Hand Exposure: No; Hx Alcohol Use: No Hx Substance Use: No Preferred Language: German Communication Ability: Effective Hearing Ability: Hard of Hearing Comptroller Required: No Beliefs That Will Affect Care: None marital status: / Current Living Situation: Alone Current Living Situation Comment: lives alone in a one story house in [place] current occupational status: retired 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 How many Children do You have: 2 How many Children do You have Comment: son Feels Safe at Home: Yes Assistive Devices: Walker Review of Systems Review of Systems: The patient denies chest pain, palpitations, lower extremi ty swelling, sore throat, fevers, chills, sweats, nausea, vomiting, diarrhea , constipation, abdominal pain, pelvic pain, blood in urine or stool, dysuria, urinary frequency or urgency, lightheadedness, dizziness, headache, memory loss, loss of consciousness, rash, abnormal bruising or bleeding, focal weakness, numbness or tingling in arms or legs, back or neck pain, or night sweats. The review of systems is otherwise negative other than for that already noted above, and at least 10 systems have been reviewed. Physical Exam Physical Exam: The patient is awake, alert and oriented 3, well developed and well nourished, normocephalic and atraumatic, lying in bed and in no acute distress. HEENT--PERRL, EOMI, mucous membranes and oropharynx mildly dry. Neck--supple. No JVD. No bruits. Thyroid normal, trachea midline, no adenopathy. Heart--normal S1 and S2. No murmurs, rubs or gallops. Lungs--clear bilaterally, no respiratory distress, no accessory muscle use. Abdomen--normal bowel sounds and soft. Nontender. Nondistended. Mildly obese Extremities--no cyanosis or clubbing. No edema. Dermatologic--normal skin turgor, normal color, no abnormal lymph nodes, no rash. Neurologic--cranial nerves II through XII grossly intact. Rheumatologic--normal range of motion. Psychiatric--normal affect. Results & Data Results & Data ([facility]) Vital Signs (Past 12 Hours) Vital Signs Temp Pulse Pulse Resp BP BP Pulse Ox 02/26/22 17:45 88 L 02/26/22 18:00 67 22 169/76 H 99 02/26/22 16:41 02/26/22 16:23 76 22 145/84 H 97 02/26/22 16:34 02/26/22 16:34 97 02/26/22 16:33 97 02/26/22 15:26 02/26/22 15:24 37 C 99 H 20 153/83 H 96 O2 Del Method O2 Flow Rate 02/26/22 17:45 Room Air 02/26/22 18:00 Nasal Cannula 3 02/26/22 16:41 Room Air 02/26/22 16:23 Room Air 02/26/22 16:34 Room Air 02/26/22 16:34 Room Air 02/26/22 16:33 Room Air 02/26/22 15:26 Room Air 02/26/22 15:24 Room Air Laboratory Results Laboratory Results WBC 5.59 K/ul (4.8-10.8) 02/26/22 16:32 RBC 4.11 M/uL (4.63-6.08) L 02/26/22 16:32 Hgb 11.3 g/dl (14.0-18.0) L 02/26/22 16:32 Hct 35.9 % (40.1-51.0) L 02/26/22 16:32 MCV 87.3 fL (80.0-100.0) 02/26/22 16:32 MCH 27.5 pg (25.0-34.0) 02/26/22 16:32 MCHC 31.5 g/dL (32.0-36.0) L 02/26/22 16:32 RDW Std Deviation 48.7 fL (36.4-46.3) H 02/26/22 16:32 RDW Coeff of Lianne 15.2 % (11.5-14.5) H 02/26/22 16:32 Plt Count 175 K/uL (130-400) 02/26/22 16:32 MPV 10.2 fL (9.4-12.4) 02/26/22 16:32 Immature Gran % (Auto) 2.0 % 02/26/22 16:32 Neut % (Auto) 76.5 % 02/26/22 16:32 Lymph % (Auto) 16.1 % 02/26/22 16:32 [place] % (Auto) 3.9 % 02/26/22 16:32 Eos % (Auto) 1.1 % 02/26/22 16:32 Baso % (Auto) 0.4 % 02/26/22 16:32 Neut # (Auto) 4.28 K/uL (1.4-6.5) 02/26/22 16:32 Lymph # (Auto) 0.90 K/uL (1.2-3.4) L 02/26/22 16:32 [place] # (Auto) 0.22 K/uL (0.24-0.82) L 02/26/22 16:32 Eos # (Auto) 0.06 K/uL (0-0.50) 02/26/22 16:32 Baso # (Auto) 0.02 K/uL (0-0.2) 02/26/22 16:32 Immature Gran # (Auto) 0.11 K/uL (0.00-0.02) H 02/26/22 16:32 PT 19.2 Seconds (9.0-12.0) H 02/26/22 16:32 INR 1.9 (0.9-1.1) H 02/26/22 16:32 APTT 31.9 Seconds (21.0-31.0) H 02/26/22 16:32 PTT Ratio 1.2 02/26/22 16:32 Sodium 139 mmol/L (136-145) 02/26/22 16:32 Potassium 4.0 mmol/L (3.5-5.1) 02/26/22 16:32 Chloride 108 mmol/L (98-107) H 02/26/22 16:32 Carbon Dioxide 24 mmol/L (21-32) 02/26/22 16:32 Anion Gap 7 (3-11) 02/26/22 16:32 BUN 33 mg/dl (6-23) H 02/26/22 16:32 Creatinine 1.32 mg/dl (0.6-1.4) 02/26/22 16:32 Est Cr Clr Drug Dosing 59.7 ml/min 02/26/22 16:32 Est GFR ( Amer) 60.3 ml/min 02/26/22 16:32 Est GFR (Non-Af Amer) 52.0 ml/min 02/26/22 16:32 BUN/Creatinine Ratio 25.0 (10-20) H 02/26/22 16:32 Glucose 199 mg/dl (70-99(Fasting)) H 02/26/22 16:32 Calcium 9.1 mg/dl (8.5-10.1) 02/26/22 16:32 Magnesium 1.9 mg/dl (1.7-2.4) 02/26/22 16:32 Total Bilirubin 0.4 mg/dl (0.2-1.0) 02/26/22 16:32 AST 35 U/L (13-39) 02/26/22 16:32 ALT 35 U/L (7-52) 02/26/22 16:32 Alkaline Phosphatase 91 U/L (34-104) 02/26/22 16:32 Troponin I High Sens 8.2 pg/ml (0-20) 02/26/22 16:32 Total Protein 6.8 gm/dl (6.0-8.3) 02/26/22 16:32 Albumin 3.9 gm/dl (3.4-5.0) 02/26/22 16:32 Globulin 2.9 gm/dl (2.5-4.0) 02/26/22 16:32 Albumin/Globulin Ratio 1.3 (0.9-2) 02/26/22 16:32 TSH 0.957 uIu/ml (0.300-4.500) 02/26/22 16:32 Urine Color Yellow 02/26/22 20:28 Urine Appearance Clear (Clear) 02/26/22 20:28 Urine pH 8.0 (4.5-7.5) H 02/26/22 20:28 Ur Specific [place] 1.012 (1.000-1.030) 02/26/22 20:28 Urine Protein Negative (Negative) 02/26/22 20:28 Urine Glucose (UA) Negative (Negative) 02/26/22 20:28 Urine Ketones Negative (Negative) 02/26/22 20:28 Urine Blood Negative (Negative) 02/26/22 20: Urine Nitrite Negative (Negative) 02/26/22 20:28 Urine Bilirubin Negative (Negative) 02/26/22 20: Urine Urobilinogen Negative (Negative) 02/26/22 20:28 Ur Leukocyte Esterase Negative (Negative) 02/26/22 20:28 SARS-CoV-2 (PCR) NEGATIVE (Negative) 02/26/22 17:26 Influenza Type A (PCR) Negative (Neg) 02/26/22 17:26 Influenza Type B (PCR) Negative (Neg) 02/26/22 17:26 RSV (RT-PCR) Negative (Neg) 02/26/22 17:26 Impressions Chest X-Ray 02/26/22 15:27 XR chest 1V portable CLINICAL HISTORY: Shortness of breath. COMPARISON STUDY: Chest CT December 30, 2021. Chest radiograph February 14, 2022. FINDINGS: There is no pneumothorax or pleural effusion. Linear left basilar opacity reflects atelectasis. There is no consolidation to suggest pneumonia. Right basilar is noted. There are median sternotomy wires and a prosthetic aortic valve. Cardiomegaly is unchanged. There is no evidence for pulmonary edema. IMPRESSION: 1. No significant change in bibasilar opacities. Right basilar opacity favors atelectasis or scarring however an infectious process could appear similar. Left basilar opacity reflects atelectasis. 2. Cardiomegaly. No evidence for pulmonary edema. ACT 112: Negative or not required by law. Electronically signed by: John Paul Drummond M.D. 02/26/2022 5:[address] 02/26/22 18:14 CT OF THE CHEST WITHOUT IV CONTRAST CLINICAL HISTORY: Shortness of breath, hypoxia COMPARISON STUDY: Chest CT 6 of her second 2021 and chest radiograph performed earlier today. CT DOSE: 732.30 mGy.cm TECHNIQUE: Axial images of the chest were obtained without IV contrast. Images were reviewed in the axial, sagittal, and coronal planes. IV contrast was not administered for this examination. Automated exposure control was utilized for the study. A dose lowering technique was utilized adhering to the principles of ALARA. FINDINGS: Prosthetic aortic valve is noted. Mild cardiomegaly is unchanged. There is moderate coronary artery calcification. No pericardial effusion is noted. Mild dilatation of the ascending aorta, measuring 4 cm is unchanged. No pneumothorax or pleural effusion is present. No enlarged axillary, mediastinal or hilar lymph nodes are present. Central airways are patent. Right lower lobe subpleural opacity is unchanged from earlier exams. This favors scarring. Small alveolar airspace opacities throughout the lungs are again noted. These have been shown on multiple prior studies. These have improved when compared to CT of December 30, 2021. No confluent consolidation. Central airways are patent. No acute fracture is identified within the visualized bony thorax. Gastric lap band is incidentally noted. Gallbladder is surgically absent. Postoperative findings within the left lung base are noted. IMPRESSION: 1. Redemonstration of small alveolar opacities throughout the lungs, improved when compared to CT of December 30, 2021. These have been shown on multiple prior exams. These are nonspecific but primary considerations include a chronic infectious etiology or hypersensitivity pneumonitis. No consolidation. 2. Otherwise, unchanged appearance of the chest. ACT 112: Negative or not required by law. Electronically signed by: John Paul Drummond M.D. 02/26/2022 7:38 PM Code Status & VTE Plan Code Status Full code VTE Prophylaxis Plan VTE Prophylaxis will be ordered: Yes (1) Diabetes Diabetes mellitus type: type 2 Diabetes mellitus terminal clerk insulin use: with correction use Diabetes mellitus complication status: with neurologic complications Diabetes mellitus complication detail: with polyneuropathy Qualified Code(s): E11.42 - Type 2 diabetes mellitus with diabetic polyneuropathy; Z79.4 - adjunct faculty for medical terminology (current) use of insulin (2) CAD (coronary artery disease) Coronary Disease-Associated Artery/Lesion type: teller artery [place] vs. transplanted heart: teller heart Associated angina: without angina Qualified Code(s): I25.10 - Atherosclerotic heart disease of teller coronary artery without angina pectoris (3) Rheumatoid arthritis Rheumatoid arthritis location: unspecified site Rheumatoid factor presence: unspecified presence Qualified Code(s): M06.9 - Rheumatoid arthritis, unspecified
--- NOTE | 2022-02-26 22:53 | Billing Data ---
Date of Service February 26, 2022 Coding Level of Care Code 62051 Initial Inpt Care Lvl 3
[2022-02-26] MEDS ORDERED: POLYETHYLENE (MIRALAX) 17 GM PACK PO PRN (23:51)
[2022-02-26] MEDS ORDERED: tiZANidine HCL 4 MG TABLET PO PRN (23:51)
[2022-02-26] MEDS ORDERED: ONDANSETRON INJ 2 MG/ML 2 ML VIAL IV PRN (23:51)
[2022-02-26] MEDS ORDERED: NSS + 20MEQ KCL 20 MEQ/1,000 ML BAG IV SCH (23:51)
[2022-02-27] MEDS: GABAPENTIN 600 MG TAB PO SCH ×3 (00:38→21:14)
[2022-02-27] MEDS: levETIRAcetam 500 MG TAB PO SCH ×3 (00:38→21:14)
[2022-02-27] MEDS: TOPIRAMATE 100 MG TAB PO SCH ×3 (00:39→21:14)
[2022-02-27] MEDS: ACETAMINOPHEN 325 MG TAB PO PRN ×2 (01:30→21:15)
[2022-02-27] MEDS: SENNA 8.6 MG TAB PO SCH (08:58)
[2022-02-27] MEDS: CARBIDOPA/LEVODOPA 25/100MG TAB PO SCH ×3 (08:58→21:14)
[2022-02-27] MEDS: FEXOFENADINE HCL 180 MG TAB PO SCH (08:58)
[2022-02-27] MEDS: FINASTERIDE 5 MG TAB PO SCH (08:58)
[2022-02-27] MEDS: ASPIRIN 81 MG ECTAB PO SCH (08:58)
[2022-02-27] MEDS: UMECLIDINIUM/VILANTEROL 62.5/25MCG 7 PUFFS/INHALER INH SCH (08:58)
[2022-02-27] MEDS: MAGNESIUM OXIDE 400 MG TAB PO SCH (08:59)
[2022-02-27] MEDS: methylPREDNISolone 40 MG in SYRINGE 0 ML IV SCH ×2 (08:59→21:14)
[2022-02-27] MEDS: FLUTICASONE FUROATE 100MCG 14 PUFFS/INHALER INH SCH (08:59)
[2022-02-27] MEDS ORDERED: LANTUS PER UNIT CHARGE SQ SCH (09:00)
[2022-02-27] MEDS ORDERED: NON-FORMULARY MEDICATION (Fluticasone-Umeclidin-Vilanter [Trelegy Ellipta] 100-62.5-25 mcg INH SCH (09:00)
--- NOTE | 2022-02-27 10:26 | Neurology Consultation ---
Date of Consultation February 27, 2022 Assessment & Plan (1) Idiopathic polyneuropathy: (2) Parkinsonism: Plan 76-year-old male with peripheral neuropathy, history of cervical and lumbar spine fusion, nonepileptic seizures, parkinsonism, presenting with functional decline in the context of shortness of breath and cough. Although I do not think he has classic or idiopathic Parkinson's disease, he may increase his dosage of carbidopa levodopa to address parkinsonism. He may continue with topiramate, Keppra, and gabapentin. These medications are prescribed to address neuropathic pain, history of headaches, and nonepileptic seizures. He does not require additional neurologic testing at this time. Would increase his dosage of carbidopa levodopa to 1.5 tablets 3 times per day. Does not require additional lab evaluation for his neuropathy at this time. Patient's neuropathy is either idiopathic or related to his history of diabetes mellitus. Most recent hemoglobin A1c was 7.5, he should continue to follow with his PCP or endocrinology for ongoing management of diabetes mellitus. History of Present Illness Reason for Consultation: Progressive fatigue, weakness, ambulatory dysfunction, history of parkinsonism, neuropathy Requesting Physician: Dr. Meraz Attending Physician: Yessi Canas MD History of Present Illness The patient is a 76-year-old male who is known to the neurology service, I last evaluated him in the context of a hospitalization this past November for seizure- like episodes. He has also been evaluated by an epilepsy specialist at [facility] and diagnosed with nonepileptic seizures. An EEG completed December 08, 2021 was normal. Patient's history is also notable for parkinsonism and neuropathy. He was seen by Nellie Yi PA-C, in neurology clinic December 29, 2021. Patient was instructed to continue with Keppra, Topamax, gabapentin, and Sinemet at that time. He was given a prescription for cyclobenzaprine. He had an EMG completed with Dr. Sam February 08, 2022 which revealed a polyneuropathy involving predominantly sensory fibers. There was no distal mononeuropathy, myopathy, or cervical radiculopathy. He presented to the emergency department February 14 after a fall. He presented again to the emergency department February 26 complaining of shortness of breath for the past 3 to 4 days, associated cough, generalized weakness, functional decline. He complained that his gait seems to be deteriorating, taking shorter steps. He does not have a pill-rolling resting tremor. He is not bradykinetic. Neurology consulted for further assistance regarding patient's history of polyneuropathy and parkinsonism in the context of progressive functional decline. Allergies Allergy/AdvReac Type Severity Reaction Status Date / Time Iodinated Contrast Media Allergy Severe Anaphylaxis Verified 02/26/22 18:34 shellfish derived Allergy Severe Anaphylaxis Verified 02/26/22 18:34 tamsulosin [From Flomax] Allergy Intermediate Itching Verified 02/26/22 18:34 Tetanus Vaccines and Toxoid Allergy Unknown Unknown Verified 02/26/22 18:34 Home Medications Medication Instructions Recorded Confirmed Type atorvastatin 40 mg tablet 40 mg PO HS 05/28/20 02/26/22 History fexofenadine 180 mg tablet 180 mg PO QAM 02/11/21 02/26/22 History (Karlee Allergy) allopurinol 100 mg tablet 100 mg QPM 04/10/21 02/26/22 History levetiracetam 500 mg tablet 1,000 mg PO BID 06/30/21 02/26/22 History (Keppra) cholecalciferol (vitamin D3) 50 4,000 unit PO HS 07/14/21 02/26/22 History mcg (2,000 unit) capsule (Vitamin D3) prednisone 10 mg tablet 10 mg PO QAM 07/14/21 02/26/22 History insulin glargine 100 unit/mL (3 20 unit subcut BID 07/26/21 02/26/22 History mL) subcutaneous pen (Lantus Solostar U-100 Insulin) acetaminophen 325 mg tablet 650 mg PO Q4H PRN pain #30 tabs 08/04/21 02/26/22 Rx aspirin 81 mg tablet,delayed 81 mg PO QAM #30 tabs 08/04/21 02/26/22 Rx release fluticasone fur. 100 mcg-umeclid 1 inh inhalation QAM #60 ea 09/06/21 02/26/22 Rx 62.5 mcg-vilant 25 mcg inhalat.powder (Trelegy Ellipta) albuterol sulfate 90 mcg/actuation 2 puff inhalation Q4H PRN 09/27/21 02/26/22 History aerosol inhaler (Ventolin HFA) Shortness Of Breath Or Wheezing polyethylene glycol 3350 17 17 g PO BID PRN Constipation 10/04/21 02/26/22 History gram/dose oral powder (Miralax) carbidopa 25 mg-levodopa 100 mg 1 tab PO TID 11/24/21 02/26/22 History tablet dulaglutide 1.5 mg/0.5 mL 1.5 mg subcut WK 11/24/21 02/26/22 History subcutaneous pen injector (Trulicity) furosemide 20 mg tablet 20 mg PO QAM 11/24/21 02/26/22 History magnesium 250 mg tablet 250 mg PO QAM 11/24/21 02/26/22 History potassium chloride 20 mEq 20 meq PO QAM 11/24/21 02/26/22 History tablet,extended release(part/cryst) (Klor-Con M) sennosides 8.6 mg tablet (Senokot) 17.2 mg PO QAM 11/24/21 02/26/22 History warfarin 5 mg tablet See Rx Instructions .Route .COMPLEX 11/24/21 02/26/22 History finasteride 5 mg tablet 5 mg PO QAM #30 tabs 12/12/21 02/26/22 Rx topiramate 100 mg tablet (Topamax) 100 mg PO BID 30 days #180 tabs 12/29/21 02/26/22 Rx tizanidine 2 mg capsule (Zanaflex) 2 mg PO HS PRN muscle spasticity 01/03/22 02/26/22 Rx #30 caps gabapentin 600 mg tablet 600 mg PO BID #60 tabs 02/15/22 02/26/22 Rx insulin aspart U-100 100 unit/mL 0 sliding scale dose subcut ACHS 02/26/22 02/26/22 History (3 mL) subcutaneous pen (Novolog Flexpen U-100 Insulin aspart) Patient History Medical History Acute dehydration Acute left-sided muscle weakness Anemia CAD (coronary artery disease) Cerebrovascular accident Chronic respiratory failure with hypoxia 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 mild R sided wkness. attending outpatient physical therapy w/ good improvement in strength (5+/5 strength of all 4 extremities as of 05/28/20) Syncope Weakness Weakness Surgical History H/O hernia repair History of cholecystectomy History of fusion of cervical spine History of heart artery stent History of lung biopsy 2019 History of partial nephrectomy Family History Mother , age 87 of pulmonary issues Rheumatoid arthritis Father , in his mid 80s of a stroke Stroke Other Coronary heart disease Social History Smoking Status: Never smoker Second Hand Exposure: No; Hx Alcohol Use: No Hx Substance Use: No Preferred Language: French Communication Ability: Effective Hearing Ability: Hard of Hearing Boring Machine Feeder Required: No Beliefs That Will Affect Care: None marital status: / Current Living Situation: Alone Current Living Situation Comment: lives alone in a one story house in [place] current occupational status: retired 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 How many Children do You have: 2 How many Children do You have Comment: son Feels Safe at Home: Yes Assistive Devices: Brace/Splint/Immobilizer, Hearing Aid - Bilateral, Oxygen - at Night and Walker Review of Systems Constitutional: + fatigue Eyes: no blind spots and no diplopia Ear, Nose, Mouth, Throat: no hearing loss Respiratory: as per Subjective / HPI and + cough Cardiovascular: no chest pain and no palpitations Gastrointestinal: no nausea and no vomiting Genitourinary: no dysuria Musculoskeletal: no back pain and no myalgia Integumentary: no rash and no lesions Neurologic: as per Subjective / HPI Psychiatric: no depression and no anxiety Hematologic / Lymphatic: no easy bleeding and no easy bruising Results & Data ([facility]) Vital Signs (Past 12 Hours) Vital Signs Temp Pulse Pulse Pulse Resp BP BP 02/27/22 08:02 72 02/27/22 07:51 36.5 C 65 18 138/84 02/27/22 03:24 36.5 C 67 18 139/74 02/26/22 23:45 67 10/30/22 23:45 02/26/22 23:45 36.5 C 109 H 18 167/79 H 02/26/22 23:51 36.5 C 109 H 18 167/79 H 02/26/22 23:51 Pulse Ox Pulse Ox O2 Del Method O2 Del Method O2 Flow Rate O2 Flow Rate 02/27/22 08:02 02/27/22 07:51 98 Nasal Cannula 1 02/27/22 03:24 93 Nasal Cannula 1 02/26/22 23:45 02/26/22 23:45 Nasal Cannula 2 02/26/22 23:45 98 Nasal Cannula 2 02/26/22 23:51 98 Nasal Cannula 2 02/26/22 23:51 98 Nasal Cannula 2 Laboratory Results WBC 5.59, hemoglobin 11.3, hematocrit 35.9, platelet count 175, sodium 139, potassium 4.0, BUN 33, creatinine 1.32, glucose 199, calcium 9.1, magnesium 1.9, AST 35, ALT 35, TSH 0.[address] of the chest reveals small alveolar opacities throughout the lungs, improved when compared to December 30, 2021, have been shown on multiple prior exams, nonspecific. CT of the head completed February 14, 2022 in the context of a fall was negative for hemorrhage or acute process, there was evidence of chronic microvascular ischemic disease and mild atrophy. No hydrocephalus. Chronic left mastoid effusion. CT of the lumbar spine completed December 30, 2021 was negative for fracture or subluxation, there was evidence of posterior decompression and fusion from L3-S1 with pedicle screws and rods. CT of the cervical spine completed December 30, 2021 negative for fracture or acute process. Evidence of anterior cervical discectomy and fusion at C4-5, unchanged, left C2-C5 facets remain fused, moderate to space narrowing at C3-4 and C5-6. Coding Level of Care Code 09835 Initial Inpt Care Lvl 3 Diagnoses Idiopathic polyneuropathy G60.9 Parkinsonism G20
--- NOTE | 2022-02-27 10:48 | Electrocardiogram Report ---
Test Reason : Blood Pressure : / mmHG Vent. Rate : 085 BPM Atrial Rate : 085 BPM P-R Int : 148 ms QRS Dur : 084 ms QT Int : 390 ms P-R-T Axes : 037 042 092 degrees QTc Int : 464 ms Sinus rhythm with Premature supraventricular complexes Otherwise normal ECG When compared with ECG of 14-FEB-2022 19:42, No significant change was found Confirmed by Cdoy Soto ([id number]) on 02/27/2022 10:48:08 AM Referred By: REFERRED SELF Confirmed By:Wyatt Soto
--- NOTE | 2022-02-27 14:32 | Hospitalist Progress Note ---
Date of Service February 27, 2022 Assessment & Plan (1) SOB (shortness of breath): Plan: Acute on Chronic shortness of breath with hypoxia- A little improved Hold prednisone which she has been on for RA Given Solu-Medrol 60 mg IV from the ED Cymetra 40 mg IV every 12 hours Continue nebulizers Nasal cannula oxygen, titrate to keep pulse ox 92-94% (2) Parkinsonism: Plan: Continue carbidopa/levodopa Nuerology adusted his dose of carbidopa (3) Hypoxia: Plan: now at baseline (4) Ambulatory dysfunction: Plan: Ambulatory dysfunction-combination of idiopathic polyneuropathy and possible need for adjustment of Parkinson medications and also left knee meniscus tear, for which he was scheduled to see ortho outpatient yesterday Consult PT/OT Consult neurology Dr. Sheikh (5) Idiopathic polyneuropathy: Plan: Continue gabapentin, Keppra, topiramate and as needed tizanidine (6) Diabetes: Plan: Decrease glargine from 20 units subcu twice daily to 10 units subcu twice daily due to decreased oral intake, however, being on IV Solu-Medrol may make need to return to normal dosing Hold Trulicity Placed on Accu-Cheks before meals and at bedtime with NovoLog coverage per scale (7) CAD (coronary artery disease): Plan: CAD/hypertension- Continue aspirin Hold furosemide Give 500 cc of normal saline with potassium at 60 mils per hour (8) Chronic kidney disease, stage 3a: (9) Rheumatoid arthritis: Plan: Changing prednisone to Solu-Medrol as noted above, return to prednisone after Solu-Medrol taper (10) Aortic valve replaced: Plan: Continue warfarin, with daily PT/INR Plan possible d/c tomorrow Admission and Anticipated Discharge Date Admission Date: February 26, 2022 Subjective patient seen and examined, says sob is improved, however, complained of left knee weakness from meniscus injury Review of Systems Review of Systems: All systems reviewed are negative, apart from the ones contained in the history. Physical Exam Physical Exam: The patient is awake, alert and oriented 3, well developed and well nourished, normocephalic and atraumatic, lying in bed and in no acute distress. HEENT--PERRL, EOMI, mucous membranes and oropharynx mildly dry Neck--supple. No JVD. No bruits. Thyroid normal, trachea midline, no adenopathy. Heart--normal S1 and S2. No murmurs, rubs or gallops. Lungs--clear bilaterally, no respiratory distress, no accessory muscle use. Abdomen--normal bowel sounds and soft. Mild epigastric and left sided abdominal pain Extremities--no cyanosis or clubbing. No edema. Dermatologic--normal skin turgor, normal color, no abnormal lymph nodes, no rash. Neurologic--cranial nerves II through XII grossly intact. Rheumatologic--normal range of motion. Psychiatric--normal affect. Results & Data Results & Data ([facility]) Vital Signs (Past 12 Hours) Vital Signs Temp Pulse Pulse Resp BP BP Pulse Ox 02/27/22 11:21 97.7 F 74 18 160/75 H 97 02/27/22 08:00 02/27/22 08:02 72 02/27/22 07:51 97.7 F 65 18 138/84 98 02/27/22 03:24 97.7 F 67 18 139/74 93 O2 Del Method O2 Flow Rate 02/27/22 11:21 Room Air 02/27/22 08:00 Nasal Cannula 2 02/27/22 08:02 02/27/22 07:51 Nasal Cannula 1 02/27/22 03:24 Nasal Cannula 1 PG Care Time/CCT Total # of Minutes Spent Total Time Spent with Patient: Total time spent is greater than 50% in coordination of care (as documented) at patient's floor/unit and/or counseling patient: Coding Level of Care Code 78207 Subseq Hosp Care Lvl 2 Diagnoses SOB (shortness of breath) R06.02 Parkinsonism G20 Hypoxia R09.02 Ambulatory dysfunction R26.2 Idiopathic polyneuropathy G60.9 Diabetes E11.42; Z79.4 Diabetes mellitus type: type 2 Diabetes mellitus group home insulin use: with group home use Diabetes mellitus complication status: with neurologic complications Diabetes mellitus complication detail: with polyneuropathy CAD (coronary artery disease) I25.10 Coronary Disease-Associated Artery/Lesion type: [place] artery [place] vs. transplanted heart: [place] heart Associated angina: without angina Chronic kidney disease, stage 3a N18.3 Rheumatoid arthritis M06.9 Rheumatoid arthritis location: unspecified site Rheumatoid factor presence: unspecified presence Aortic valve replaced Z95.2 Time Spent (min) 35 (1) Diabetes Diabetes mellitus type: type 2 Diabetes mellitus group home insulin use: with commercial real estate assistant use Diabetes mellitus complication status: with neurologic complications Diabetes mellitus complication detail: with polyneuropathy Qualified Code(s): E11.42 - Type 2 diabetes mellitus with diabetic polyneuropathy; Z79.4 - long-term (current) use of insulin (2) CAD (coronary artery disease) Coronary Disease-Associated Artery/Lesion type: [place] artery [place] vs. transplanted heart: [place] heart Associated angina: without angina Qualified Code(s): I25.10 - Atherosclerotic heart disease of [place] coronary artery without angina pectoris (3) Rheumatoid arthritis Rheumatoid arthritis location: unspecified site Rheumatoid factor presence: unspecified presence Qualified Code(s): M06.9 - Rheumatoid arthritis, unspecified
[2022-02-27] MEDS ORDERED: DEXTROSE 50% 50 ML SYRINGE IV PRN (15:15)
[2022-02-27] MEDS ORDERED: GLUCOSE 10 TAB/TUBE PO PRN (15:15)
[2022-02-27] MEDS ORDERED: CARBOHYDRATES FOR HYPOGLYCEMIA PO PRN (15:15)
[2022-02-27] MEDS ORDERED: GLUCAGON FOR INJ 1 MG VIAL IM PRN (15:15)
[2022-02-27] MEDS ORDERED: GLUCOSE 40% GEL 15 GM TUBE PO PRN (15:15)
[2022-02-27] MEDS: WARFARIN SOD 5 MG TAB PO SCH (15:19)
[2022-02-27] MEDS ORDERED: INSULIN HUMAN REGULAR SC SCH (16:30)
[2022-02-27] MEDS ORDERED: INSULIN ASPART PER UNIT SC STA ×2 (17:01→18:38)
[2022-02-27] MEDS: INSULIN ASPART PER UNIT SC SCH ×2 (18:13→21:30)
[2022-02-27] MEDS ORDERED: Nursing to Pharmacy Communication SCH (18:15)
[2022-02-27] MEDS: ALBUTEROL HFA 8 GM INHALER INH PRN (19:10)
[2022-02-27] MEDS: CHOLECALCIFEROL 1,000 UNITS 25 MCG TAB PO SCH (21:14)
[2022-02-27] MEDS: ATORVASTATIN 40 MG TAB PO SCH (21:14)
[2022-02-27] MEDS: allopurinoL 100 MG TAB PO SCH (21:14)
[2022-02-27] MEDS: LANTUS PER UNIT CHARGE SQ SCH (21:30)
--- NOTE | 2022-02-28 05:12 | Communication Note ---
Date of Service: February 28, 2022 Patient received 20u aspart at 6:41PM. bsg 340 at 7:18PM. He then received HS 29u aspart and 20u glargine. Checked bsg several times during night to ensure no hypoglycemia. Lowest was 148, 204 on repeat. Will continue ACHS schedule.
[2022-02-28] MEDS: INSULIN ASPART PER UNIT SC SCH ×4 (08:42→21:13)
[2022-02-28] MEDS: UMECLIDINIUM/VILANTEROL 62.5/25MCG 7 PUFFS/INHALER INH SCH (08:49)
[2022-02-28] MEDS: CARBIDOPA/LEVODOPA 25/100MG TAB PO SCH ×2 (08:49→15:02)
[2022-02-28] MEDS: FLUTICASONE FUROATE 100MCG 14 PUFFS/INHALER INH SCH (08:49)
[2022-02-28] MEDS: GABAPENTIN 600 MG TAB PO SCH (08:50)
[2022-02-28] MEDS: levETIRAcetam 500 MG TAB PO SCH ×2 (08:50→20:04)
[2022-02-28] MEDS: SENNA 8.6 MG TAB PO SCH (08:50)
[2022-02-28] MEDS: TOPIRAMATE 100 MG TAB PO SCH ×2 (08:50→20:03)
[2022-02-28] MEDS: FINASTERIDE 5 MG TAB PO SCH (08:50)
[2022-02-28] MEDS: ASPIRIN 81 MG ECTAB PO SCH (08:51)
[2022-02-28] MEDS: FEXOFENADINE HCL 180 MG TAB PO SCH (08:51)
[2022-02-28] MEDS: LANTUS PER UNIT CHARGE SQ SCH ×2 (08:51→21:13)
[2022-02-28] MEDS: MAGNESIUM OXIDE 400 MG TAB PO SCH (08:51)
[2022-02-28] MEDS: ALBUTEROL HFA 8 GM INHALER INH PRN (09:03)
[2022-02-28 10:11] LABS: Basophils # (auto) 0.02 K/uL (0-0.2); Basophils % (auto) 0.2 %; Eosinophils # (auto) 0.02 K/uL (0-0.50); Eosinophils % (auto) 0.2 %; Hematocrit (blood only) 34.3 % (40.1-51.0); Hemoglobin 10.9 g/dl (14.0-18.0); Immature Granulocytes # (auto) 0.11 K/uL (0.00-0.02); Immature Granulocytes % (auto) 1.3 %; Lymphocytes # (auto) 1.49 K/uL (1.2-3.4); Lymphocytes % (auto) 18.1 %; Mean Corpuscular Hemoglobin 28.2 pg (25.0-34.0); Mean Corpuscular Hgb Conc 31.8 g/dL (32.0-36.0); Mean Corpuscular Volume 88.6 fL (80.0-100.0); Monocytes # (auto) 0.21 K/uL (0.24-0.82); Monocytes % (auto) 2.6 %; Neutrophils # (auto) 6.37 K/uL (1.4-6.5); Neutrophils % (auto) 77.6 %; Platelet Count 170 K/uL (130-400); RDW Coefficient of Variation 15.2 % (11.5-14.5); RDW Standard Deviation 48.2 fL (36.4-46.3); Red Blood Count 3.87 M/uL (4.63-6.08); White Blood Count 8.22 K/ul (4.8-10.8)
[2022-02-28 10:21] LABS: INR 1.3 (0.9-1.1); Prothrombin Time 13.5 Seconds (9.0-12.0)
[2022-02-28 10:53] LABS: Albumin Globulin Ratio 1.4 (0.9-2); Albumin Level 3.6 gm/dl (3.4-5.0); BUN Creatinine Ratio 32.1 (10-20); Bilirubin,Total 0.4 mg/dl (0.2-1.0); Calcium 9.2 mg/dl (8.5-10.1); Creatinine Clr Calc Pharmacy 71.8 ml/min; Est GFR (Non-African American) 65.6 ml/min; Globulin 2.6 gm/dl (2.5-4.0); Potassium 4.2 mmol/L (3.5-5.1); Total Protein 6.2 gm/dl (6.0-8.3)
--- NOTE | 2022-02-28 12:52 | Hospitalist Progress Note ---
Date of Service February 28, 2022 Assessment & Plan (1) SOB (shortness of breath): Plan: Acute on Chronic shortness of breath with hypoxia- Much improved Continue home prednisone 10mg daily Cymetra 40 mg IV every 12 hours Continue nebulizers Nasal cannula oxygen, titrate to keep pulse ox 92-94% (2) Parkinsonism: Plan: Continue carbidopa/levodopa Patient claims he's on 25-250mg at home, but only getting 25-100 here Neuro on board, appreciate recs (3) Hypoxia: Plan: now at baseline (4) Ambulatory dysfunction: Plan: Ambulatory dysfunction-combination of idiopathic polyneuropathy and possible need for adjustment of Parkinson medications and also left knee meniscus tear, for which he was scheduled to see ortho outpatient yesterday Consult PT/OT Consult neurology Dr. Sheikh (5) Idiopathic polyneuropathy: Plan: Continue gabapentin, Keppra, topiramate and as needed tizanidine (6) Diabetes: Plan: Decrease glargine from 20 units subcu twice daily to 10 units subcu twice daily due to decreased oral intake, Hold Trulicity Placed on Accu-Cheks before meals and at bedtime with NovoLog coverage per scale (7) CAD (coronary artery disease): Plan: CAD/hypertension- Continue aspirin Hold furosemide Give 500 cc of normal saline with potassium at 60 mils per hour (8) Chronic kidney disease, stage 3a: (9) Rheumatoid arthritis: Plan: Resume home prednisone 10mg daily (10) Aortic valve replaced: Plan: Continue warfarin, with daily PT/INR Plan possible d/c tomorrow Admission and Anticipated Discharge Date Admission Date: February 26, 2022 Subjective patient seen and examined, says sob is improved, however, complained of sleepiness and weakness and wanted to be re evaluated by neurology Review of Systems Review of Systems: All systems reviewed are negative, apart from the ones contained in the history. Physical Exam Physical Exam: The patient is awake, alert and oriented 3, well developed and well nourished, normocephalic and atraumatic, lying in bed and in no acute distress. HEENT--PERRL, EOMI, mucous membranes and oropharynx mildly dry Neck--supple. No JVD. No bruits. Thyroid normal, trachea midline, no adenopathy. Heart--normal S1 and S2. No murmurs, rubs or gallops. Lungs--clear bilaterally, no respiratory distress, no accessory muscle use. Abdomen--normal bowel sounds and soft. Mild epigastric and left sided abdominal pain Extremities--no cyanosis or clubbing. No edema. Dermatologic--normal skin turgor, normal color, no abnormal lymph nodes, no rash. Neurologic--cranial nerves II through XII grossly intact. Rheumatologic--normal range of motion. Psychiatric--normal affect. Results & Data Results & Data ([facility]) Vital Signs (Past 12 Hours) Vital Signs Temp Pulse Resp BP Pulse Ox O2 Del Method O2 Flow Rate 02/28/22 11:20 97.3 F L 69 18 169/78 H 99 Nasal Cannula 2 02/28/22 11:18 Nasal Cannula 4 02/28/22 09:03 68 16 99 Nasal Cannula 2 02/28/22 07:51 97.7 F 63 18 144/86 H 96 Nasal Cannula 2 02/28/22 02:51 97.7 F 62 18 129/65 96 Nasal Cannula 2 PG Care Time/CCT Total # of Minutes Spent Total Time Spent with Patient: Total time spent is greater than 50% in coordination of care (as documented) at patient's floor/unit and/or counseling patient: Coding Level of Care Code 15845 Subseq Hosp Care Lvl 2 Diagnoses SOB (shortness of breath) R06.02 Parkinsonism G20 Hypoxia R09.02 Ambulatory dysfunction R26.2 Idiopathic polyneuropathy G60.9 Diabetes E11.42; Z79.4 Diabetes mellitus type: type 2 Diabetes mellitus 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 transplanted heart: [place] heart Associated angina: without angina Qualified Code(s): I25.10 - Atherosclerotic heart disease of [place] coronary artery without angina pectoris (3) Rheumatoid arthritis Rheumatoid arthritis location: unspecified site Rheumatoid factor presence: unspecified presence Qualified Code(s): M06.9 - Rheumatoid arthritis, unspecified
[2022-02-28] MEDS ORDERED: WARFARIN SOD 7.5 MG TAB PO SCH (16:00)
--- NOTE | 2022-02-28 16:20 | Neurology Progress Note ---
Date of Service February 28, 2022 Assessment & Plan (1) Idiopathic polyneuropathy: (2) Parkinsonism: Plan Idiopathic polyneuropathy, parkinsonism, fatigue, ambulatory dysfunction. Patient may increase his dosage of carbidopa levodopa to 25/250 mg 3 times per day. I have recommended reducing his dosage of gabapentin to 300 mg twice daily. I have also recommended trial of amantadine which is useful for Parkinson's associated symptoms including motor fluctuations and dyskinesias. Amantadine is also helpful for fatigue. Patient agreeable to these medication adjustments. He will monitor for any significant worsening in his neuropathy pain with the gabapentin dosage reduction. I will continue to follow. Admission and Anticipated Discharge Date Admission Date: February 26, 2022 Subjective Follow-up for parkinsonism, peripheral neuropathy The patient informs me that he has been taking carbidopa levodopa 25/250 mg 3 times per day at home, not 25/100 mg 3 times per day as indicated in the record, it looks like the hospitalist physician has adjusted his medication accordingly. He complains of persistent fatigue, need for increased sleep as well as general functional decline, poor tolerance to prolonged standing and walking. He is requesting potential medication adjustment to address these issues if appropriate. No tremors or dyskinesias at this time. He indicates that his neuropathy pain is of moderate severity but has been responding well to gabapentin. Review of Systems Constitutional: as per Subjective / HPI and + fatigue Neurologic: + gait abnormality Results & Data ([facility]) Vital Signs (Past 12 Hours) Vital Signs Temp Pulse Resp BP Pulse Ox O2 Del Method O2 Flow Rate 02/28/22 15:24 36.6 C 65 20 125/70 96 Room Air 02/28/22 11:20 36.3 C L 69 18 169/78 H 99 Nasal Cannula 2 02/28/22 11:18 Nasal Cannula 4 02/28/22 09:03 68 16 99 Nasal Cannula 2 02/28/22 07:51 36.5 C 63 18 144/86 H 96 Nasal Cannula 2 Exam (Neuro) Neurologic: Oriented to:: Person, Place and Time Attention: Span Intact and Concentration Intact Speech Fluency: negative Dysarthria or Dysfluency Fund of Knowledge: Vocabulary Cranial Nerves: Normal II, III, IV, and VII Motor Strength: Normal Lower Extremities and Normal Upper Extremities Muscle Bulk/Involuntary Movements: negative Pill Rolling Tremor Coding Level of Care Code 35865 Subseq Hosp Care Lvl 2 Diagnoses Idiopathic polyneuropathy G60.9 Parkinsonism G20
[2022-02-28] MEDS: CHOLECALCIFEROL 1,000 UNITS 25 MCG TAB PO SCH (20:04)
[2022-02-28] MEDS: GABAPENTIN 300 MG CAP PO SCH (20:04)
[2022-02-28] MEDS: ATORVASTATIN 40 MG TAB PO SCH (20:05)
[2022-02-28] MEDS: allopurinoL 100 MG TAB PO SCH (20:05)
[2022-02-28] MEDS: CARBIDOPA/LEVODOPA 25-250 1 EA TAB PO SCH (20:05)
[2022-02-28] MEDS: ACETAMINOPHEN 325 MG TAB PO PRN (21:12)
[2022-03-01 07:47] LABS: Basophils # (auto) 0.05 K/uL (0-0.2); Basophils % (auto) 1.1 %; Eosinophils # (auto) 0.16 K/uL (0-0.50); Eosinophils % (auto) 3.4 %; Hematocrit (blood only) 34.5 % (40.1-51.0); Hemoglobin 10.8 g/dl (14.0-18.0); Immature Granulocytes # (auto) 0.08 K/uL (0.00-0.02); Immature Granulocytes % (auto) 1.7 %; Lymphocytes # (auto) 1.37 K/uL (1.2-3.4); Lymphocytes % (auto) 28.9 %; Mean Corpuscular Hemoglobin 27.6 pg (25.0-34.0); Mean Corpuscular Hgb Conc 31.3 g/dL (32.0-36.0); Mean Corpuscular Volume 88.2 fL (80.0-100.0); Monocytes # (auto) 0.38 K/uL (0.24-0.82); Neutrophils % (auto) 56.9 %; Platelet Count 155 K/uL (130-400); RDW Coefficient of Variation 15.5 % (11.5-14.5); RDW Standard Deviation 49.3 fL (36.4-46.3); Red Blood Count 3.91 M/uL (4.63-6.08); White Blood Count 4.74 K/ul (4.8-10.8)
[2022-03-01 08:02] LABS: INR 1.3 (0.9-1.1); Prothrombin Time 13.6 Seconds (9.0-12.0)
[2022-03-01 08:42] LABS: Albumin Globulin Ratio 1.4 (0.9-2); Albumin Level 3.4 gm/dl (3.4-5.0); BUN Creatinine Ratio 30.6 (10-20); Bilirubin,Total 0.4 mg/dl (0.2-1.0); Calcium 8.8 mg/dl (8.5-10.1); Creatinine Clr Calc Pharmacy 70.5 ml/min; Est GFR (African American) 74.4 ml/min; Est GFR (Non-African American) 64.2 ml/min; Globulin 2.4 gm/dl (2.5-4.0); Magnesium 2.1 mg/dl (1.7-2.4); Potassium 3.9 mmol/L (3.5-5.1); Total Protein 5.8 gm/dl (6.0-8.3)
[2022-03-01] MEDS ORDERED: AMANTADINE HCL 100 MG CAPSULE PO SCH (09:00)
[2022-03-01] MEDS: CARBIDOPA/LEVODOPA 25-250 1 EA TAB PO SCH ×2 (09:03→12:55)
[2022-03-01] MEDS: UMECLIDINIUM/VILANTEROL 62.5/25MCG 7 PUFFS/INHALER INH SCH (09:03)
[2022-03-01] MEDS: levETIRAcetam 500 MG TAB PO SCH (09:04)
[2022-03-01] MEDS: ASPIRIN 81 MG ECTAB PO SCH (09:04)
[2022-03-01] MEDS: SENNA 8.6 MG TAB PO SCH (09:04)
[2022-03-01] MEDS: TOPIRAMATE 100 MG TAB PO SCH (09:04)
[2022-03-01] MEDS: GABAPENTIN 300 MG CAP PO SCH (09:04)
[2022-03-01] MEDS: FEXOFENADINE HCL 180 MG TAB PO SCH (09:04)
[2022-03-01] MEDS: MAGNESIUM OXIDE 400 MG TAB PO SCH (09:05)
[2022-03-01] MEDS: FLUTICASONE FUROATE 100MCG 14 PUFFS/INHALER INH SCH (09:05)
[2022-03-01] MEDS: FINASTERIDE 5 MG TAB PO SCH (09:05)
[2022-03-01] MEDS: ACETAMINOPHEN 325 MG TAB PO PRN (09:13)
[2022-03-01] MEDS: LANTUS PER UNIT CHARGE SQ SCH (09:13)
[2022-03-01] MEDS: INSULIN ASPART PER UNIT SC SCH ×2 (09:14→12:57)
--- NOTE | 2022-03-01 13:36 | Discharge Summary ---
Date of Service March 01, 2022 Admission HPI Per Admitting Provider The patient is a 76-year-old male with a past medical history including idiopathic polyneuropathy, by lobar pneumonia, ambulatory dysfunction, frequent falls, prostate cancer with LUTS, parkinsonism, seizure-like activity, lower GI bleed, diabetes mellitus, CAD, CKD, status post AVR, and steroid-dependent rheumatoid arthritis. The patient was most recently admitted from 12/30-12/31/2021 for similar symptoms, which improved prior to discharge. Over the past 3 to 4 days he has developed progressively worsening symptoms of generalized weakness, fatigue, shortness of breath and dyspnea on exertion. He has found it significantly more physically difficult to walk, and is attributing this to his underlying parkinsonism, for which she follows with neurology Dr. Sheikh Principal Diagnosis weakness, parkinsonism, acute on chronic hypoxia Discharge Exam The patient is awake, alert and oriented 3, well developed and well nourished, normocephalic and atraumatic, lying in bed and in no acute distress. HEENT--PERRL, EOMI, mucous membranes and oropharynx mildly dry Neck--supple. No JVD. No bruits. Thyroid normal, trachea midline, no adenopathy. Heart--normal S1 and S2. No murmurs, rubs or gallops. Lungs--clear bilaterally, no respiratory distress, no accessory muscle use. Abdomen--normal bowel sounds and soft. Mild epigastric and left sided abdominal pain Extremities--no cyanosis or clubbing. No edema. Dermatologic--normal skin turgor, normal color, no abnormal lymph nodes, no rash. Neurologic--cranial nerves II through XII grossly intact. Rheumatologic--normal range of motion. Psychiatric--normal affect. Discharge Data Allergies Allergy/AdvReac Type Severity Reaction Status Date / Time Iodinated Contrast Media Allergy Severe Anaphylaxis Verified 02/26/22 18:34 shellfish derived Allergy Severe Anaphylaxis Verified 02/26/22 18:34 tamsulosin [From Flomax] Allergy Intermediate Itching Verified 02/26/22 18:34 Tetanus Vaccines and Toxoid Allergy Unknown Unknown Verified 02/26/22 18:34 Consultations 02/26/22 20:42 ED Decision to Admit Stat 02/26/22 23:51 Consult Neurology Routine Ordered Studies 02/26/22 18:14 CT chest diagnostic wo con Stat Hospital Course (1) SOB (shortness of breath): Acute on Chronic shortness of breath with hypoxia- Resolved, patient back to baseline Continue home prednisone 10mg daily Cymetra 40 mg IV every 12 hours Continue nebulizers Nasal cannula oxygen, titrate to keep pulse ox 92-94% (2) Parkinsonism: Continue carbidopa/levodopa 25-250mg TID neuro added Amantadine and also reduced gabapentin to 300mg BID from 600mg BID (3) Hypoxia: now at baseline (4) Ambulatory dysfunction: Ambulatory dysfunction-combination of idiopathic polyneuropathy and possible need for adjustment of Parkinson medications and also left knee meniscus tear, for which he was scheduled to see ortho outpatient yesterday Consult PT/OT Consult neurology Dr. Sheikh (5) Idiopathic polyneuropathy: Continue gabapentin, Keppra, topiramate and as needed tizanidine (6) Diabetes: Decrease glargine from 20 units subcu twice daily to 10 units subcu twice daily due to decreased oral intake, Hold Trulicity Placed on Accu-Cheks before meals and at bedtime with NovoLog coverage per scale (7) CAD (coronary artery disease): CAD/hypertension- Continue aspirin Hold furosemide Give 500 cc of normal saline with potassium at 60 mils per hour (8) Chronic kidney disease, stage 3a: (9) Rheumatoid arthritis: Resume home prednisone 10mg daily (10) Aortic valve replaced: Continue warfarin, with daily PT/INR Plan d/c home Total Time Total Time Spent Total Time Spent (In Minutes): 35 Discharge Plan Discharge Items Patient Disposition: Home - Self-Care Reason For Visit: WEKNESS, HYPOXIA, AMB DYSF Discharge Diagnosis: weakness, parkinsons Condition on Discharge: Good Activity: Resume your previous activity Non-emergency contact: Primary Care Provider and Neurologist Call non-emergency contact if: you have any medication questions Follow-up/Referrals: Josh Gaspar MD [Primary Care Provider] - Diet: Regular Addtl Attending Provider Instructions: please make appointment to follow up with your neurologist Pending Studies at Discharge: No Stand-Alone Forms: My [facility], Smoking Cessation Medications and DC Order Prescriptions: New carbidopa-levodopa 25-250 mg Tablet 1 tab PO TID 30 Days Qty: 90 0RF amantadine HCl 100 mg Capsule 100 mg PO QAM 30 Days Qty: 30 0RF gabapentin 300 mg Capsule 300 mg PO BID 30 Days Qty: 60 0RF Continued Trelegy Ellipta 100-62.5-25 mcg blister with device 1 inh inhalation QAM Qty: 60 5RF tizanidine [Zanaflex] 2 mg capsule 2 mg PO HS PRN (Reason: muscle spasticity) Qty: 30 2RF gabapentin 600 mg tablet 600 mg PO BID Qty: 60 2RF finasteride 5 mg tablet 5 mg PO QAM Qty: 30 3RF prednisone 10 mg tablet 10 mg PO QAM topiramate [Topamax] 100 mg tablet 100 mg PO BID 30 Days Qty: 180 4RF cholecalciferol (vitamin D3) [Vitamin D3] 50 mcg (2,000 unit) capsule 4,000 unit PO HS atorvastatin 40 mg tablet 40 mg PO HS fexofenadine [Karlee Allergy] 180 mg Tablet 180 mg PO QAM acetaminophen 325 mg Tablet 650 mg PO Q4H PRN (Reason: pain) Qty: 30 0RF Rx Instructions: OTC aspirin 81 mg Tablet,Delayed Release (Dr/Ec) 81 mg PO QAM Qty: 30 0RF Rx Instructions: OTC albuterol sulfate [Ventolin HFA] 90 mcg/actuation HFA aerosol inhaler 2 puff INHALATION Q4H PRN (Reason: Shortness Of Breath Or Wheezing) allopurinol 100 mg tablet 100 mg QPM levetiracetam [Keppra] 500 mg tablet 1,000 mg PO BID insulin glargine [Lantus Solostar U-100 Insulin] 100 unit/mL (3 mL) insulin pen 20 unit SUBCUT BID polyethylene glycol 3350 [Miralax] 17 gram/dose powder 17 g PO BID PRN (Reason: Constipation) furosemide 20 mg tablet 20 mg PO QAM Trulicity 1.5 mg/0.5 mL pen injector 1.5 mg SUBCUT WK Rx Instructions: [place] sennosides [Senokot] 8.6 mg tablet 17.2 mg PO QAM warfarin 5 mg tablet See Rx Instructions .ROUTE .COMPLEX Rx Instructions: 5 mg orally; TAKES 5 MG ON SUN, MON, WED, FRI & SAT. THEN TAKES 7.5 MG ON & . TAKES QPM. potassium chloride [Klor-Con M20] 20 mEq tablet,ER particles/crystals 20 meq PO QAM magnesium 250 mg Tablet 250 mg PO QAM insulin aspart U-100 [Novolog Flexpen U-100 Insulin] 100 unit/mL (3 mL) in sulin pen 0 sliding scale dose subcut ACHS Rx Instructions: supplemental scale for meal-time coverage and bed-time coverage. Discontinued carbidopa-levodopa 25-100 mg tablet 1 tab PO TID Rx Instructions: TAKE 1 TABLET BY MOUTH THREE TIMES A DAY Discharge Orders: Discharge Order (Routine); Ordered 03/01/22 Ordered By: Yessi Canas Admission Data Admit Date/Time: 02/26/22 21:27 Attending Provider: Yessi Canas Admit Provider: Shayan Mims Primary Care Provider: Josh Gaspar Other Providers: Britton Sheikh ; Shayan Mims Coding Level of Care Code D/C DAY MANAGEMENT >30 MINS Diagnoses SOB (shortness of breath) R06.02 Parkinsonism G20 Hypoxia R09.02 Ambulatory dysfunction R26.2 Idiopathic polyneuropathy G60.9 Diabetes E11.42; Z79.4 Diabetes mellitus type: type 2 Diabetes mellitus halfway insulin use: with medical terminologist use Diabetes mellitus complication status: with neurologic complications Diabetes mellitus complication detail: with polyneuropathy CAD (coronary artery disease) I25.10 Coronary Disease-Associated Artery/Lesion type: platinum artery [place] vs. transplanted heart: platinum heart Associated angina: without angina Chronic kidney disease, stage 3a N18.3 Rheumatoid arthritis M06.9 Rheumatoid arthritis location: unspecified site Rheumatoid factor presence: unspecified presence Aortic valve replaced Z95.2 Time Spent (min) 35
[2022-03-01] MEDS: WARFARIN SOD 5 MG TAB PO SCH (15:35)
--- NOTE | 2022-03-09 09:20 | Coding Query ---
CODING QUERY To promote full compliance with coding requirements relating to patient care, provider participation is requested in all cases of handle bender uncertainty. Please assist us with the question(s) below: Coding Question(s): Pt admitted with acute on chronic SOB / hopoxia. 02/28 progress note: idiopathic lung disease . Pt treated wtih oxygen, nebs, IV solumedrol. Discharge summary documented acute on chronic hypoxia. Please document, if known or suspected, the etiology of the acute on chronic hypoxia , reason for admission. Thanks for your help! José Luis Gipson, [facility]. Physician's Response(s): The etiology of acute on chronic hypxia is unknown Principal Diagnosis: "that condition established after study, to be chiefly responsible for occasioning the admission of the patient to the hospital for care." Co-Existing Principal Diagnosis: "when two or more diagnoses equally meet the criteria for principal diagnosis as determined by the circumstances of admission, diagnostic work up, and/or therapy provided, and the Alphabetic Index, Tabular List, or another coding guideline does not provide sequencing direction, any one of the diagnoses may be sequenced first." "When the physician has documented what appears to be a current diagnosis in the body of the record, but has not included the diagnosis in the final diagnostic statement, the physician should be asked whether the diagnosis should be added." (Source Coding [facility] 2 QTR90. p3-4) OWEN
== END 2022-03-01 16:15 | disposition home or self-care (01) | DRG 197 ==
LOC: ED 14:55 → 2N 21:27 → SUATTDRO 21:27 → 2N 22:40

== ENCOUNTER 2022-04-02 03:22 | Inpatient (IN) ==
[2022-04-02] MEDS ORDERED: SODIUM CHLORIDE 0.9% 500 ML IV ONE ×2 (03:49→05:04)
--- NOTE | 2022-04-02 04:11 | Emergency Department Note ---
Impression & Plan Right lower lobe pneumonia, Hypoxia, Acute electrocardiogram changes, Elevated troponin Admit to the [facility] ED Provider Note NAME: OSBALDO AGUILAR AGE: 77 SEX: M ARRIVES VIA: Ambulance INFORMANT: Patient and EMS ED PROVIDER(S): Queta Umaña DO CHIEF COMPLAINT: Dyspnea and weakness PLAN: Disposition: Admit to the [facility] Condition: Guarded MEDICAL DECISION MAKING: This is a 77-year-old male patient with history of COPD who presents to the [facility] from the [facility] with increasing shortness of breath, chest pain generalized weakness and urinary incontinence. The patient had recently been on an airplane ride to a [place] and presents tonight with increasing shortness of breath and significant generalized weakness. He is noted to have a right lower lobe pneumonia. He is hypoxic on exam require supplemental oxygen. Patient was started on IV cefepime after having a septic protocol performed. He does have an elevated procalcitonin but a normal lactate. White blood cell count is normal. However, he does have an elevated troponin. He is significantly dehydrated on physical exam. He was given a 1500 cc bolus of normal saline solution. I discussed the case with the [facility]ist and they will evaluate for further management. Triage Nursing notes reviewed and agree with them. Additional history obtained from EMS Prior medical records reviewed Vital Signs: reviewed and remarkable for hypoxia Differential diagnosis: COPD exacerbation, COVID-19, pneumonia, influenza, CHF ER treatment provided: IV normal saline bolus x3 IV cefepime Diagnostics interpreted by me: ECG: Normal sinus rhythm at [address] segment depression and T wave inversion in lead I and aVL. This is new in comparison to an EKG from January of this year. Cardiac Monitoring: Normal sinus rhythm at 93 Laboratory studies: See below Imaging studies: As per my interpretation Forward chest x-ray: Right lower lobe infiltrate HPI: 77/M arrives for evaluation of chest pain and shortness of breath. Patient describes increasing shortness of breath since yesterday. He describes being so weak that he was unable to get out of bed that he was incontinent of urine. He recently traveled to a [place] by airplane. He describes having chest pain earlier today and having a decreased appetite. He describes extreme thirst and feeling dehydrated. ROS: See above HPI for pertinent positives & negatives. A total of 10 systems reviewed and were otherwise negative. PAST MEDICAL HISTORY:See Below PAST SURGICAL HISTORY:See Below FAMILY HISTORY:See Below SOCIAL HISTORY: See list HOME MEDICATIONS:See Below ALLERGIES:See Below VITALS:See Below PHYSICAL EXAMINATION: HEENT: Head - normocephalic and atraumatic. Pupils are equal, round, and reactive to light. Extraocular eye muscles are intact, and sclera are anicteric. Nose - moist nasal mucosa without discharge. Mouth - moist buccal mucosa. Oropharynx is nonerythematous and there is no tonsillar exudate or edema noted. Neck: Supple; no JVD or cervical lymphadenopathy Heart: Regular rate and rhythm. There is a normal S1 and S2 with no murmurs, clicks, or gallops appreciated. Lungs: Diminished breath sounds in all lung [place] with rales at the bases. Abdomen: Soft, completely nontender, nondistended, with good bowel sounds. There are no palpable pulsatile masses or hepatosplenomegaly. There is no guarding, rigidity, or rebound noted. Extremities: 3+ pitting edema Skin: warm and dry with good turgor and no rashes. ED COURSE: Times/Reassessments: 335: Patient was evaluated in room C7. A complete history and physical was performed. Septic protocol was ordered. Order was placed for continuous cardiac monitoring. Patient was in a normal sinus rhythm at a rate of 93. A twelve-lead EKG was obtained as described above. Previous electronic medical records were reviewed. Patient was bolused with 500 cc of normal saline solution. A portable chest x- ray was performed. Patient's blood pressure was declining so he was given a second bolus of IV normal saline. He was noted to be somewhat lethargic. I reviewed laboratory results with the patient. He was given a third bolus of IV normal saline. He was started on IV cefepime. I discussed the case with the [facility] Hospitalist. Queta Umaña DO Past Med/Surg History Medical History Anemia CAD (coronary artery disease) Cerebrovascular accident Chronic kidney disease, stage 3a Chronic respiratory failure with hypoxia Current use of superintendent terminal anticoagulation Depression Diabetes Elevated troponin Generalized weakness Hypoxia Non-ST elevation VT (NSTEMI) Non-sustained ventricular tachycardia PAF (paroxysmal atrial fibrillation) Rheumatoid arthritis Shortness of breath Stroke-like symptom 12/2019, w/ blurry vision and dysarthria. mild R sided wkness. attending outpatient physical therapy w/ good improvement in strength (5+/5 strength of all 4 extremities as of 05/28/20) Syncope Surgical History H/O hernia repair History of aortic valve replacement History of cholecystectomy History of fusion of cervical spine History of heart artery stent History of lung biopsy 2019 History of partial nephrectomy Family History Mother , age 87 of pulmonary issues Rheumatoid arthritis Father , in his mid 80s of a stroke Stroke Other Coronary heart disease Social History Smoking Status: Never smoker Second Hand Exposure: No; Hx Alcohol Use: No Hx Substance Use: No Preferred Language: Macedonian Communication Ability: Effective Hearing Ability: Hard of Hearing Automotive Consultant Required: No Beliefs That Will Affect Care: None marital status: / Current Living Situation: Alone Current Living Situation Comment: lives alone in a one story house in [place] current occupational status: retired 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 How many Children do You have: 2 How many Children do You have Comment: son Feels Safe at Home: Yes Assistive Devices: Brace/Splint/Immobilizer, Hearing Aid - Bilateral, Oxygen - Continuous and Walker Allergies Allergies Allergy/AdvReac Type Severity Reaction Status Date / Time Iodinated Contrast Media Allergy Severe Anaphylaxis Verified 03/16/22 09:56 shellfish derived Allergy Severe Anaphylaxis Verified 03/16/22 09:56 tamsulosin [From Flomax] Allergy Intermediate Itching Verified 03/16/22 09:56 Tetanus Vaccines and Toxoid Allergy Unknown Unknown Verified 03/16/22 09:56 Home Meds Home Medications Medication Instructions Recorded Confirmed atorvastatin 40 mg tablet 40 mg PO HS 05/28/20 03/16/22 fexofenadine 180 mg tablet 180 mg PO QAM 02/11/21 03/16/22 (Karlee Allergy) allopurinol 100 mg tablet 100 mg QPM 04/10/21 03/16/22 levetiracetam 500 mg tablet 1,000 mg PO BID 06/30/21 03/16/22 (Keppra) cholecalciferol (vitamin D3) 50 4,000 unit PO HS 07/14/21 03/16/22 mcg (2,000 unit) capsule (Vitamin D3) prednisone 10 mg tablet 10 mg PO QAM 07/14/21 03/16/22 insulin glargine 100 unit/mL (3 20 unit subcut BID 07/26/21 03/16/22 mL) subcutaneous pen (Lantus Solostar U-100 Insulin) albuterol sulfate 90 mcg/actuation 2 puff inhalation Q4H PRN 09/27/21 03/16/22 aerosol inhaler (Ventolin HFA) Shortness Of Breath Or Wheezing polyethylene glycol 3350 17 17 g PO BID PRN Constipation 10/04/21 03/16/22 gram/dose oral powder (Miralax) dulaglutide 1.5 mg/0.5 mL 1.5 mg subcut WK 11/24/21 03/16/22 subcutaneous pen injector (Trulicity) furosemide 20 mg tablet 20 mg PO QAM 11/24/21 03/16/22 magnesium 250 mg tablet 250 mg PO QAM 11/24/21 03/16/22 potassium chloride 20 mEq 20 meq PO QAM 11/24/21 03/16/22 tablet,extended release(part/cryst) (Klor-Con M) sennosides 8.6 mg tablet (Senokot) 17.2 mg PO QAM 11/24/21 03/16/22 warfarin 5 mg tablet See Rx Instructions .Route .COMPLEX 11/24/21 03/16/22 insulin aspart U-100 100 unit/mL 0 sliding scale dose subcut ACHS 02/26/22 03/16/22 (3 mL) subcutaneous pen (Novolog Flexpen U-100 Insulin aspart) Previous Rx's Medication Instructions Recorded acetaminophen 325 mg tablet 650 mg PO Q4H PRN pain #30 tabs 08/04/21 aspirin 81 mg tablet,delayed 81 mg PO QAM #30 tabs 08/04/21 release fluticasone fur. 100 mcg-umeclid 1 inh inhalation QAM #60 ea 09/06/21 62.5 mcg-vilant 25 mcg inhalat.powder (Trelegy Ellipta) finasteride 5 mg tablet 5 mg PO QAM #30 tabs 12/12/21 topiramate 100 mg tablet (Topamax) 100 mg PO BID 30 days #180 tabs 12/29/21 gabapentin 600 mg tablet 600 mg PO BID #60 tabs 02/15/22 amantadine HCl 100 mg capsule See Rx Instructions .Route 03/10/22 .COMPLEX #180 caps tizanidine 2 mg capsule (Zanaflex) 2 mg PO HS PRN muscle spasticity 03/10/22 #30 caps oxycodone 5 mg tablet 5 mg PO Q6H PRN pain #10 tabs 03/30/22 Results & Data (ED) Vital Signs Vital Signs - 24 hr 04/02/22 03:34 04/02/22 03:45 04/02/22 03:45 Temperature 36.7 C Temperature Source Oral Pulse Rate 93 H Pulse Rate [Finger] Respiratory Rate 24 Respiratory Effort / Characteristics Spontaneous Labored Spontaneous Labored Respiratory Depth Respiratory Pattern Regular Blood Pressure 108/53 L Blood Pressure [Right Arm] Blood Pressure Mean 71 Blood Pressure Mean [Right Arm] Pulse Oximetry 93 Oxygen Delivery Method Nasal Cannula Nasal Cannula Oxygen Flow Rate 3 Sepsis Recent Fever Within 48 Hours No Sepsis New/Unexplained Change in Mental Status No Sepsis Action Taken by Nursing No Action Required 04/02/22 03:47 04/02/22 03:54 04/02/22 04:58 Temperature Temperature Source Pulse Rate Pulse Rate [Finger] 83 Respiratory Rate 20 Respiratory Effort / Characteristics Non-Labored Spontaneous Respiratory Depth Normal Respiratory Pattern Regular Blood Pressure Blood Pressure [Right Arm] 105/48 L Blood Pressure Mean Blood Pressure Mean [Right Arm] 67 Pulse Oximetry 94 94 93 Oxygen Delivery Method Nasal Cannula Nasal Cannula Oxygen Flow Rate 3 3 Sepsis Recent Fever Within 48 Hours Sepsis New/Unexplained Change in Mental Status Sepsis Action Taken by Nursing 04/02/22 06:00 Temperature Temperature Source Pulse Rate Pulse Rate [Finger] 85 Respiratory Rate 23 Respiratory Effort / Characteristics Spontaneous Respiratory Depth Respiratory Pattern Blood Pressure Blood Pressure [Right Arm] 112/52 L Blood Pressure Mean Blood Pressure Mean [Right Arm] 72 Pulse Oximetry 95 Oxygen Delivery Method Nasal Cannula Oxygen Flow Rate 3 Sepsis Recent Fever Within 48 Hours Sepsis New/Unexplained Change in Mental Status Sepsis Action Taken by Nursing Laboratory Data Result diagrams: 04/02/22 03:45 04/02/22 03:45 Lab Results 04/02/22 04/02/22 04/02/22 Range/Units 03:45 03:45 03:45 WBC 4.42 L (4.8-10.8) K/ul RBC 4.46 L (4.63-6.08) M/uL Hgb 12.4 L (14.0-18.0) g/dl Hct 38.8 L (40.1-51.0) % MCV 87.0 (80.0-100.0) fL MCH 27.8 (25.0-34.0) pg MCHC 32.0 (32.0-36.0) g/dL RDW Std Deviation 48.2 H (36.4-46.3) fL RDW Coeff of Lianne 15.1 H (11.5-14.5) % Plt Count 136 (130-400) K/uL MPV 10.3 (9.4-12.4) fL Immature Gran % (Auto) 0.5 % Neut % (Auto) 80.2 % Lymph % (Auto) 12.0 % [place] % (Auto) 5.2 % Eos % (Auto) 1.6 % Baso % (Auto) 0.5 % Neut # (Auto) 3.55 (1.4-6.5) K/uL Lymph # (Auto) 0.53 L (1.2-3.4) K/uL [place] # (Auto) 0.23 L (0.24-0.82) K/uL Eos # (Auto) 0.07 (0-0.50) K/uL Baso # (Auto) 0.02 (0-0.2) K/uL Immature Gran # (Auto) 0.02 (0.00-0.02) K/uL Platelet Estimate Normal (Normal) Sodium 140 (136-145) mmol/L Potassium 3.0 L (3.5-5.1) mmol/L Chloride 109 H (98-107) mmol/L Carbon Dioxide 22 (21-32) mmol/L Anion Gap 9 (3-11) BUN 30 H (6-23) mg/dl Creatinine 1.31 (0.6-1.4) mg/dl Est Cr Clr Drug Dosing 58.0 ml/min Est GFR ( Amer) 60.4 ml/min Est GFR (Non-Af Amer) 52.1 ml/min BUN/Creatinine Ratio 22.9 H (10-20) Glucose 109 H (70-99(Fasting)) mg/dl Lactate (0.4-2.0) mmol/L Calcium 8.9 (8.5-10.1) mg/dl Total Bilirubin 0.6 (0.2-1.0) mg/dl AST 26 (13-39) U/L ALT 16 (7-52) U/L Alkaline Phosphatase 59 (34-104) U/L Troponin I High Sens 47.4 H D (0-20) pg/ml Total Protein 6.1 (6.0-8.3) gm/dl Albumin 3.7 (3.4-5.0) gm/dl Globulin 2.4 L (2.5-4.0) gm/dl Albumin/Globulin Ratio 1.5 (0.9-2) Lipase 9 L (11-82) U/L Procalcitonin (0-0.5) ng/ml SARS-CoV-2 (PCR) NEGATIVE (Negative) Influenza Type A (PCR) Negative (Neg) Influenza Type B (PCR) Negative (Neg) RSV (RT-PCR) Negative (Neg) 04/02/22 04/02/22 Range/Units 03:47 05:10 WBC (4.8-10.8) K/ul RBC (4.63-6.08) M/uL Hgb (14.0-18.0) g/dl Hct (40.1-51.0) % MCV (80.0-100.0) fL MCH (25.0-34.0) pg MCHC (32.0-36.0) g/dL RDW Std Deviation (36.4-46.3) fL RDW Coeff of Lianne (11.5-14.5) % Plt Count (130-400) K/uL MPV (9.4-12.4) fL Immature Gran % (Auto) % Neut % (Auto) % Lymph % (Auto) % [place] % (Auto) % Eos % (Auto) % Baso % (Auto) % Neut # (Auto) (1.4-6.5) K/uL Lymph # (Auto) (1.2-3.4) K/uL [place] # (Auto) (0.24-0.82) K/uL Eos # (Auto) (0-0.50) K/uL Baso # (Auto) (0-0.2) K/uL Immature Gran # (Auto) (0.00-0.02) K/uL Platelet Estimate (Normal) Sodium (136-145) mmol/L Potassium (3.5-5.1) mmol/L Chloride (98-107) mmol/L Carbon Dioxide (21-32) mmol/L Anion Gap (3-11) BUN (6-23) mg/dl Creatinine (0.6-1.4) mg/dl Est Cr Clr Drug Dosing ml/min Est GFR ( Amer) ml/min Est GFR (Non-Af Amer) ml/min BUN/Creatinine Ratio (10-20) Glucose (70-99(Fasting)) mg/dl Lactate 1.9 (0.4-2.0) mmol/L Calcium (8.5-10.1) mg/dl Total Bilirubin (0.2-1.0) mg/dl AST (13-39) U/L ALT (7-52) U/L Alkaline Phosphatase (34-104) U/L Troponin I High Sens (0-20) pg/ml Total Protein (6.0-8.3) gm/dl Albumin (3.4-5.0) gm/dl Globulin (2.5-4.0) gm/dl Albumin/Globulin Ratio (0.9-2) Lipase (11-82) U/L Procalcitonin 1.52 H (0-0.5) ng/ml SARS-CoV-2 (PCR) (Negative) Influenza Type A (PCR) (Neg) Influenza Type B (PCR) (Neg) RSV (RT-PCR) (Neg) Administered Medications Albuterol (Albut/Ipratrop 3mg/0.5mg Neb 3 Ml Vial) 3 ml NEB Q4R [facility]; Protocol Stop: 05/02/22 14:59 Last Admin: 04/02/22 15:37 Dose: 3 ml Documented By: GRETTA Amantadine HCl (Amantadine Hcl 100 Mg Capsule) 100 mg PO DAILY@0800,1400 [facility] Stop: 05/02/22 08:14 Last Admin: 04/02/22 14:19 Dose: 100 mg Documented By: Admin: 04/02/22 09:27 Dose: 100 mg Documented By: WILLIAM Aspirin ([facility]in 81 Mg Ectab) [facility] Stop: 05/02/22 08:59 Last Admin: 04/02/22 09:27 Dose: 81 mg Documented By: WILLIAM Carbidopa/Levodopa (Carbidopa/Levodopa 25-250 1 Ea Tab) 1 tab PO TID [facility] Stop: 05/02/22 08:59 Last Admin: 04/02/22 14:19 Dose: 1 tab Documented By: Admin: 04/02/22 09:27 Dose: 1 tab Documented By: WILLIAM Finasteride (Finasteride 5 Mg Tab) [facility] Stop: 05/02/22 08:59 Last Admin: 04/02/22 09:28 Dose: 5 mg Documented By: WILLIAM Fluticasone Furoate (Fluticasone Furoate 100mcg 14 Puffs/Inhaler) 1 puffs INH [facility] Stop: 05/02/22 08:59 Last Admin: 04/02/22 09:28 Dose: 1 puffs Documented By: WILLIAM Gabapentin (Gabapentin 600 Mg Tab) 300 mg PO BID [facility] Stop: 05/02/22 08:59 Last Admin: 04/02/22 09:28 Dose: 300 mg Documented By: WILLIAM Cefepime HCl 1,000 mg/ Syringe 10 mls @ 5 mls/min IV Q12H [facility]; Protocol Stop: 04/09/22 17:29 Last Admin: 04/02/22 17:29 Dose: 5 mls/min Documented By: WILLIAM Insulin Aspart (Insulin Aspart Per Unit) 0 units SC ACHS [facility] Stop: 05/02/22 07:29 Last Admin: 04/02/22 12:47 Dose: 1 units Documented By: WILLIAM Co-signed By: SANJANA Admin: 04/02/22 09:23 Dose: Not Given Documented By: WILLIAM Insulin Glargine (Lantus Per Unit Charge) 7 units SQ BID [facility] Stop: 05/02/22 08:59 Last Admin: 04/02/22 09:33 Dose: 7 units Documented By: WILLIAM Co-signed By: SANJANA Levetiracetam (Levetiracetam 500 Mg Tab) 1,000 mg PO BID [facility] Stop: 05/02/22 08:59 Last Admin: 04/02/22 09:29 Dose: 1,000 mg Documented By: WILLIAM Prednisone (Prednisone 10 Mg Tablet) 10 mg PO QAM [facility] Stop: 05/02/22 08:59 Last Admin: 04/02/22 09:29 Dose: 10 mg Documented By: WILLIAM Sennosides (Senna 8.6 Mg Tab) 17.2 mg PO QAM [facility] Stop: 05/02/22 08:59 Last Admin: 04/02/22 09:30 Dose: 17.2 mg Documented By: WILLIAM Topiramate (Topiramate 100 Mg Tab) 100 mg PO BID [facility] Stop: 05/02/22 08:59 Last Admin: 04/02/22 09:30 Dose: 100 mg Documented By: WILLIAM Umeclidinium/Vilanterol (Umeclidinium/Vilanterol 62.5/25mcg 7 Puffs/Inhaler) 1 puffs INH QAM [facility] Stop: 05/02/22 08:59 Last Admin: 04/02/22 09:30 Dose: 1 puffs Documented By: WILLIAM Warfarin Sodium (Warfarin Sod 5 Mg Tab) 5 mg PO [id number] [facility] Stop: 05/02/22 15:59 Last Admin: 04/02/22 17:26 Dose: 5 mg Documented By: WILLIAM Discontinued Medications Sodium Chloride (Nss) 500 mls @ 999 mls/hr IV .Q31M ONE Stop: 04/02/22 04:19 Last Infusion: 04/02/22 05:17 Dose: 0 mls/hr Documented By: Admin: 04/02/22 03:55 Dose: 999 mls/hr Documented By: HERLINDA Sodium Chloride (Nss) 500 mls @ 999 mls/hr IV .Q31M ONE Stop: 04/02/22 05:34 Last Infusion: 04/02/22 05:53 Dose: 0 mls/hr Documented By: Admin: 04/02/22 05:17 Dose: 999 mls/hr Documented By: HERLINDA Cefepime HCl (Maxipime) 2,000 mg in 20 mls @ 5 mls/min IV NOW STA; Protocol Stop: 04/02/22 05:34 Last Admin: 04/02/22 05:54 Dose: 5 mls/min Documented By: HERLINDA Lactated Ringer's (Lr) 1,000 mls @ 90 mls/hr IV .Q11H7M [facility] Stop: 04/02/22 16:39 Last Infusion: 04/02/22 17:29 Dose: 0 mls/hr Documented By: Admin: 04/02/22 09:26 Dose: 125 mls/hr Documented By: WILLIAM Lactated Ringer's (Lr) 500 mls @ 999 mls/hr IV .Q31M ONE Stop: 04/02/22 08:00 Last Admin: 04/02/22 10:46 Dose: Not Given Documented By: WILLIAM Potassium Chloride (Potassium Chloride Crtab 20 Meq Tabcr) 40 meq PO NOW STA Stop: 04/02/22 07:31 Last Admin: 04/02/22 10:25 Dose: 40 meq Documented By: WILLIAM Imaging Data Radiologist's Impression: Chest X-Ray 04/02/22 03:49 XR chest 1V portable HISTORY: Atypical Chest Pain COMPARISON: Chest 03/30/2022. FINDINGS: No pneumothorax. The heart remains mildly enlarged. There are poststernotomy changes and a cardiac valve prosthesis again noted. There are suture material within the left lung base. There are patchy bibasilar densities most pronounced on the right. This is new from the prior study and likely repr esents a pneumonia. This could be due to prior aspiration. IMPRESSION: Patchy bibasilar densities most pronounced on the right. This is consistent with a pneumonia and could be due to aspiration. ACT 112: Negative or not required by law. Electronically signed by: Jc Che M.D. 04/02/2022 8:05 AM Discharge Plan Visit Data Chief Complaint: Shortness of Breath/Dyspnea Stated Complaint: STARTED YESTERDAY WORSENED OVERNIGHT; HX OF ASTHMA ED Provider: Queta Umaña Discharge Problem: Right lower lobe pneumonia, Hypoxia, Acute electrocardiogram changes, Elevated troponin Patient Disposition: Admitted As Inpatient Discharge Instructions Interventions: ED Discharge Assessment Last Done: 04/02/22 06:57 : Right lower lobe pneumonia Qualifiers: Pneumonia type: due to unspecified organism Qualified Code(s): J18.9 - Pneumonia, unspecified organism
[2022-04-02 04:50] LABS: Albumin Globulin Ratio 1.5 (0.9-2); Albumin Level 3.7 gm/dl (3.4-5.0); BUN Creatinine Ratio 22.9 (10-20); Bilirubin,Total 0.6 mg/dl (0.2-1.0); Calcium 8.9 mg/dl (8.5-10.1); Est GFR (African American) 60.4 ml/min; Est GFR (Non-African American) 52.1 ml/min; Globulin 2.4 gm/dl (2.5-4.0); Influenza A virus by PCR Negative (Neg); Influenza B virus by PCR Negative (Neg); RSV by PCR Negative (Neg); SARS CoV2 RNA(COVID-19) Ceph NEGATIVE (Negative); Total Protein 6.1 gm/dl (6.0-8.3)
[2022-04-02 04:51] LABS: Troponin I High Sensitivity 47.4 pg/ml (0-20)
[2022-04-02 05:08] LABS: Basophils # (auto) 0.02 K/uL (0-0.2); Basophils % (auto) 0.5 %; Eosinophils # (auto) 0.07 K/uL (0-0.50); Eosinophils % (auto) 1.6 %; Hematocrit (blood only) 38.8 % (40.1-51.0); Hemoglobin 12.4 g/dl (14.0-18.0); Immature Granulocytes # (auto) 0.02 K/uL (0.00-0.02); Immature Granulocytes % (auto) 0.5 %; Lymphocytes # (auto) 0.53 K/uL (1.2-3.4); Mean Corpuscular Hemoglobin 27.8 pg (25.0-34.0); Mean Platelet Volume 10.3 fL (9.4-12.4); Monocytes # (auto) 0.23 K/uL (0.24-0.82); Monocytes % (auto) 5.2 %; Neutrophils # (auto) 3.55 K/uL (1.4-6.5); Neutrophils % (auto) 80.2 %; Platelet Count 136 K/uL (130-400); Platelet Estimate Normal (Normal); RDW Coefficient of Variation 15.1 % (11.5-14.5); RDW Standard Deviation 48.2 fL (36.4-46.3); Red Blood Count 4.46 M/uL (4.63-6.08); White Blood Count 4.42 K/ul (4.8-10.8)
[2022-04-02] MEDS ORDERED: CEFEPIME 2,000 MG/20 ML VIAL IV STA (05:31)
--- NOTE | 2022-04-02 06:24 | History & Physical Report ---
Date of Service April 02, 2022 Assessment & Plan (1) SOB (shortness of breath): Plan: 77yo male presenting with one day of cough, sob, generalized weakness and fatigue. Patient hypoxic in the ER to 80% on 2L NC. Improved now. Suspect PNA given CXR findings, elevated procalcitonin -Admit to medical with telemetry -Follow cultures -Continue Cefepime - patient recently admitted to [facility] -Check MRSA nares -Tylenol, Mucinex -Albuterol PRN (2) Parkinsonism: Plan: Chronic. Stable. Carbidopa-Levodopa dosage recently increased to 25/250 mg po TID. He has also been started on Amantadine and his Gabapentin has been decreased to 300mg po BID -Continue Carbidopa-Levodopa 25/250mg po TID -Continue Amantadine -Continue Gabapentin 300mg po BID -Continue Tizanidine (3) Seizure-like activity: Plan: Stable. No reported seizure-like activity -Continue Keppra 1000mg po BID (4) Diabetes: Plan: Blood aabmn=248 presently -Lantus 7u BID -ISS -Goal blood sugar 110 - 140 -Continue Gabapentin (5) CAD (coronary artery disease): Plan: Mild elevation of troponin. EKG with no acute ischemic changes. Patient does complain of some tightness in his chest, worse with coughing -Telemetry monitoring -Trend troponin -Continue ASA, Atorvastatin (6) Aortic valve replaced: Plan: Patient on Coumadin anticoagulation. Goal INR 2.5 - 3.5 -Check INR -Continue Coumadin (7) Rheumatoid arthritis: Plan: Chronic. Stable -Continue Prednisone 10mg po daily -Low threshold for stress dosing if blood pressure declines History of Present Illness Chief Complaint: SOB Primary Care Provider: Josh Gaspar MD Xavi Bradford is a 77yo male with history of CAD, DM, PAF, mechanical aortic valve on Coumadin anticoagulation and steroid dependent RA presenting with one day of dry cough, SOB and generalized weakness. Patient reports he was having difficulty getting out of bed due to weakness. He denies fever or chills, no abdominal pain, nausea or vomiting. He feels a little confused at times. He had diarrhea earlier this week but now is complaining of constipation. Patient hypoxic in the ER to 80% on room air. Blood pressure in the 90's, responsive to 1L NSS bolus. Witnessed aspiration activity by ER staff following sips of water - wet sounding cough. ER Course: Cefepime NSS x 1L Allergies Allergy/AdvReac Type Severity Reaction Status Date / Time Iodinated Contrast Media Allergy Severe Anaphylaxis Verified 03/16/22 09:56 shellfish derived Allergy Severe Anaphylaxis Verified 03/16/22 09:56 tamsulosin [From Flomax] Allergy Intermediate Itching Verified 03/16/22 09:56 Tetanus Vaccines and Toxoid Allergy Unknown Unknown Verified 03/16/22 09:56 Home Medications Medication Instructions Recorded Confirmed Type atorvastatin 40 mg tablet 40 mg PO HS 05/28/20 03/16/22 History fexofenadine 180 mg tablet 180 mg PO QAM 02/11/21 03/16/22 History (Karlee Allergy) allopurinol 100 mg tablet 100 mg QPM 04/10/21 03/16/22 History levetiracetam 500 mg tablet 1,000 mg PO BID 06/30/21 03/16/22 History (Keppra) cholecalciferol (vitamin D3) 50 4,000 unit PO HS 07/14/21 03/16/22 History mcg (2,000 unit) capsule (Vitamin D3) prednisone 10 mg tablet 10 mg PO QAM 07/14/21 03/16/22 History insulin glargine 100 unit/mL (3 20 unit subcut BID 07/26/21 03/16/22 History mL) subcutaneous pen (Lantus Solostar U-100 Insulin) acetaminophen 325 mg tablet 650 mg PO Q4H PRN pain #30 tabs 08/04/21 03/16/22 Rx aspirin 81 mg tablet,delayed 81 mg PO QAM #30 tabs 08/04/21 03/16/22 Rx release fluticasone fur. 100 mcg-umeclid 1 inh inhalation QAM #60 ea 09/06/21 03/16/22 Rx 62.5 mcg-vilant 25 mcg inhalat.powder (Trelegy Ellipta) albuterol sulfate 90 mcg/actuation 2 puff inhalation Q4H PRN 09/27/21 03/16/22 History aerosol inhaler (Ventolin HFA) Shortness Of Breath Or Wheezing polyethylene glycol 3350 17 17 g PO BID PRN Constipation 10/04/21 03/16/22 History gram/dose oral powder (Miralax) dulaglutide 1.5 mg/0.5 mL 1.5 mg subcut WK 11/24/21 03/16/22 History subcutaneous pen injector (Trulicity) furosemide 20 mg tablet 20 mg PO QAM 11/24/21 03/16/22 History magnesium 250 mg tablet 250 mg PO QAM 11/24/21 03/16/22 History potassium chloride 20 mEq 20 meq PO QAM 11/24/21 03/16/22 History tablet,extended release(part/cryst) (Klor-Con M) sennosides 8.6 mg tablet (Senokot) 17.2 mg PO QAM 11/24/21 03/16/22 History warfarin 5 mg tablet See Rx Instructions .Route .COMPLEX 11/24/21 03/16/22 History finasteride 5 mg tablet 5 mg PO QAM #30 tabs 12/12/21 03/16/22 Rx topiramate 100 mg tablet (Topamax) 100 mg PO BID 30 days #180 tabs 12/29/21 03/16/22 Rx gabapentin 600 mg tablet 600 mg PO BID #60 tabs 02/15/22 03/16/22 Rx insulin aspart U-100 100 unit/mL 0 sliding scale dose subcut ACHS 02/26/22 03/16/22 History (3 mL) subcutaneous pen (Novolog Flexpen U-100 Insulin aspart) amantadine HCl 100 mg capsule See Rx Instructions .Route 03/10/22 03/16/22 Rx .COMPLEX #180 caps tizanidine 2 mg capsule (Zanaflex) 2 mg PO HS PRN muscle spasticity 03/10/22 03/16/22 Rx #30 caps oxycodone 5 mg tablet 5 mg PO Q6H PRN pain #10 tabs 03/30/22 Rx Past Med/Surg History Medical History Anemia CAD (coronary artery disease) Cerebrovascular accident Chronic kidney disease, stage 3a Chronic respiratory failure with hypoxia Current use of continuous churn buttermaker anticoagulation Depression Diabetes Elevated troponin Generalized weakness Hypoxia Non-ST elevation [place] (NSTEMI) Non-sustained ventricular tachycardia PAF (paroxysmal atrial fibrillation) Rheumatoid arthritis Shortness of breath Stroke-like symptom 12/2019, w/ blurry vision and dysarthria. mild R sided wkness. attending outpatient physical therapy w/ good improvement in strength (5+/5 strength of all 4 extremities as of 05/28/20) Syncope Surgical History H/O hernia repair History of aortic valve replacement History of cholecystectomy History of fusion of cervical spine History of heart artery stent History of lung biopsy 2019 History of partial nephrectomy Family History Mother , age 87 of pulmonary issues Rheumatoid arthritis Father , in his mid 80s of a stroke Stroke Other Coronary heart disease Social History Smoking Status: Former smoker Second Hand Exposure: No; Hx Alcohol Use: No Hx Substance Use: No Preferred Language: [place] Communication Ability: Effective Hearing Ability: Hard of Hearing Clinical Haematologist Required: No Beliefs That Will Affect Care: None marital status: / Current Living Situation: Alone Current Living Situation Comment: lives alone in a one story house in [place] current occupational status: retired 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 How many Children do You have: 2 How many Children do You have Comment: son Feels Safe at Home: Yes Assistive Devices: Glasses and Walker Review of Systems Review of Systems: All systems reviewed & are unremarkable except as noted in HPI & below Physical Exam Physical Exam: General: patient somnolent, arousable, answers questions appropriately, following commands Skin: warm, dry, bruising present on right knee HEENT: NC/AT, PERRL, EOMI, anicteric sclera, conjunctiva without injection, external ear normal to inspection and nontender, nares patent, DRY mucus membranes, dentition intact, no oropharyngeal lesions, neck supple, trachea midline, no LAD, no thyromegaly, no JVD Heart: +S1/S2, regular, systolic click present consistent with mechanical aortic valve Lungs: equal air entry bilaterally, moist cough, no rhonchi or wheezing, faint end-inspiratory crackles in right base Abd: +BS, soft, distended and tympanic to percussion, no masses/organomegaly/ascites Ext: warm, 2+ pulses in UE/LE bilaterally, RLE edema > L, some swelling of right knee Neuro: nonfocal, patient AA&O x 4, speech slow, no facial droop, moving all extremities on command with equal strength 5/5 Results & Data Results & Data ([facility]) Vital Signs (Past 12 Hours) Vital Signs Temp Pulse Pulse Resp BP BP Pulse Ox 04/02/22 06:00 85 23 112/52 L 95 04/02/22 04:58 83 20 105/48 L 93 04/02/22 03:54 94 04/02/22 03:47 94 04/02/22 03:45 04/02/22 03:34 36.7 C 93 H 24 108/53 L 93 O2 Del Method O2 Flow Rate 04/02/22 06:00 Nasal Cannula 3 04/02/22 04:58 Nasal Cannula 3 04/02/22 03:54 Nasal Cannula 3 04/02/22 03:47 04/02/22 03:45 Nasal Cannula 3 04/02/22 03:34 Nasal Cannula Laboratory Results Laboratory Results WBC 4.42 K/ul (4.8-10.8) L 04/02/22 03:45 RBC 4.46 M/uL (4.63-6.08) L 04/02/22 03:45 Hgb 12.4 g/dl (14.0-18.0) L 04/02/22 03:45 Hct 38.8 % (40.1-51.0) L 04/02/22 03:45 MCV 87.0 fL (80.0-100.0) 04/02/22 03:45 MCH 27.8 pg (25.0-34.0) 04/02/22 03:45 MCHC 32.0 g/dL (32.0-36.0) 04/02/22 03:45 RDW Std Deviation 48.2 fL (36.4-46.3) H 04/02/22 03:45 RDW Coeff of Lianne 15.1 % (11.5-14.5) H 04/02/22 03:45 Plt Count 136 K/uL (130-400) 04/02/22 03:45 MPV 10.3 fL (9.4-12.4) 04/02/22 03:45 Immature Gran % (Auto) 0.5 % 04/02/22 03:45 Neut % (Auto) 80.2 % 04/02/22 03:45 Lymph % (Auto) 12.0 % 04/02/22 03:45 [place] % (Auto) 5.2 % 04/02/22 03:45 Eos % (Auto) 1.6 % 04/02/22 03:45 Baso % (Auto) 0.5 % 04/02/22 03:45 Neut # (Auto) 3.55 K/uL (1.4-6.5) 04/02/22 03:45 Lymph # (Auto) 0.53 K/uL (1.2-3.4) L 04/02/22 03:45 [place] # (Auto) 0.23 K/uL (0.24-0.82) L 04/02/22 03:45 Eos # (Auto) 0.07 K/uL (0-0.50) 04/02/22 03:45 Baso # (Auto) 0.02 K/uL (0-0.2) 04/02/22 03:45 Immature Gran # (Auto) 0.02 K/uL (0.00-0.02) 04/02/22 03:45 Platelet Estimate Normal (Normal) 04/02/22 03:45 Sodium 140 mmol/L (136-145) 04/02/22 03:45 Potassium 3.0 mmol/L (3.5-5.1) L 04/02/22 03:45 Chloride 109 mmol/L (98-107) H 04/02/22 03:45 Carbon Dioxide 22 mmol/L (21-32) 04/02/22 03:45 Anion Gap 9 (3-11) 04/02/22 03:45 BUN 30 mg/dl (6-23) H 04/02/22 03:45 Creatinine 1.31 mg/dl (0.6-1.4) 04/02/22 03:45 Est Cr Clr Drug Dosing 58.0 ml/min 04/02/22 03:45 Est GFR ( Amer) 60.4 ml/min 04/02/22 03:45 Est GFR (Non-Af Amer) 52.1 ml/min 04/02/22 03:45 BUN/Creatinine Ratio 22.9 (10-20) H 04/02/22 03:45 Glucose 109 mg/dl (70-99(Fasting)) H 04/02/22 03:45 Lactate 1.9 mmol/L (0.4-2.0) 04/02/22 05:10 Calcium 8.9 mg/dl (8.5-10.1) 04/02/22 03:45 Total Bilirubin 0.6 mg/dl (0.2-1.0) 04/02/22 03:45 AST 26 U/L (13-39) 04/02/22 03:45 ALT 16 U/L (7-52) 04/02/22 03:45 Alkaline Phosphatase 59 U/L (34-104) 04/02/22 03:45 Troponin I High Sens 47.4 pg/ml (0-20) H D 04/02/22 03:45 Total Protein 6.1 gm/dl (6.0-8.3) 04/02/22 03:45 Albumin 3.7 gm/dl (3.4-5.0) 04/02/22 03:45 Globulin 2.4 gm/dl (2.5-4.0) L 04/02/22 03:45 Albumin/Globulin Ratio 1.5 (0.9-2) 04/02/22 03:45 Lipase 9 U/L (11-82) L 04/02/22 03:45 Procalcitonin 1.52 ng/ml (0-0.5) H 04/02/22 03:47 SARS-CoV-2 (PCR) NEGATIVE (Negative) 04/02/22 03:45 Influenza Type A (PCR) Negative (Neg) 04/02/22 03:45 Influenza Type B (PCR) Negative (Neg) 04/02/22 03:45 RSV (RT-PCR) Negative (Neg) 04/02/22 03:45 Code Status & VTE Plan VTE Prophylaxis Plan VTE Prophylaxis will be ordered: Yes PG Care Time/CCT Total # of Minutes Spent Total Time Spent with Patient: Total time spent is greater than 50% in coordination of care (as documented) at patient's floor/unit and/or counseling patient: Coding Level of Care Code 22477 Initial Inpt Care Lvl 3 Diagnoses SOB (shortness of breath) R06.02 Parkinsonism G20 Seizure-like activity R56.9 Diabetes E11.42; Z79.4 Diabetes mellitus complication detail: with polyneuropathy Diabetes mellitus complication status: with neurologic complications Diabetes mellitus continuous churn buttermaker insulin use: with continuous churn buttermaker use Diabetes mellitus type: type 2 CAD (coronary artery disease) I25.10 Associated angina: without angina Coronary Disease-Associated Artery/Lesion type: [place] artery [place] vs. transplanted heart: [place] heart Aortic valve replaced Z95.2 Rheumatoid arthritis M06.9 Rheumatoid arthritis location: unspecified site Rheumatoid factor presence: unspecified presence (1) Rheumatoid arthritis Rheumatoid arthritis location: unspecified site Rheumatoid factor presence: unspecified presence Qualified Code(s): M06.9 - Rheumatoid arthritis, unspecified (2) Diabetes Diabetes mellitus complication detail: with polyneuropathy Diabetes mellitus complication status: with neurologic complications Diabetes mellitus continuous churn buttermaker insulin use: with halfway use Diabetes mellitus type: type 2 Qualified Code(s): E11.42 - Type 2 diabetes mellitus with diabetic polyneuropathy; Z79.4 - intermediate manager (current) use of insulin (3) CAD (coronary artery disease) Associated angina: without angina Coronary Disease-Associated Artery/Lesion type: [place] artery [place] vs. transplanted heart: [place] heart Qualified Code(s): I25.10 - Atherosclerotic heart disease of [place] coronary artery without angina pectoris
[2022-04-02] MEDS ORDERED: tiZANidine HCL 4 MG TABLET PO PRN (07:30)
[2022-04-02] MEDS ORDERED: CEFEPIME 2,000 MG in SYRINGE 0 ML IV SCH (07:30)
[2022-04-02] MEDS ORDERED: GLUCOSE 40% GEL 15 GM TUBE PO PRN (07:30)
[2022-04-02] MEDS ORDERED: GLUCAGON FOR INJ 1 MG VIAL SQ PRN (07:30)
[2022-04-02] MEDS ORDERED: DEXTROSE 50% 50 ML SYRINGE IV PRN (07:30)
[2022-04-02] MEDS ORDERED: LACTATED RINGER'S 1,000 ML IV SCH (07:30)
[2022-04-02] MEDS ORDERED: LACTATED RINGER'S 500 ML IV ONE (07:30)
[2022-04-02] MEDS ORDERED: GLUCOSE 10 TAB/TUBE PO PRN (07:30)
[2022-04-02] MEDS ORDERED: bisacodyL 10 MG SUPP PR PRN (07:30)
[2022-04-02] MEDS ORDERED: ALBUTEROL HFA 8 GM INHALER INH PRN (07:30)
[2022-04-02] MEDS ORDERED: POTASSIUM CHLORIDE CRTAB 20 MEQ TABCR PO STA (07:30)
[2022-04-02] MEDS ORDERED: CARBOHYDRATES FOR HYPOGLYCEMIA PO PRN (07:30)
--- NOTE | 2022-04-02 08:06 | XRay Report ---
XR chest 1V portable HISTORY: Atypical Chest Pain COMPARISON: Chest 03/30/2022. FINDINGS: No pneumothorax. The heart remains mildly enlarged. There are poststernotomy changes and a cardiac valve prosthesis again noted. There are suture material within the left lung base. There are patchy bibasilar densities most pronounced on the right. This is new from the prior study and likely represents a pneumonia. This could be due to prior aspiration. IMPRESSION: Patchy bibasilar densities most pronounced on the right. This is consistent with a pneumonia and coul d be due to aspiration. ACT 112: Negative or not required by law. Electronically signed by: Jc Che M.D. 04/02/2022 8:05 AM
[2022-04-02] MEDS: INSULIN ASPART PER UNIT SC SCH ×3 (09:23→18:22)
[2022-04-02] MEDS: AMANTADINE HCL 100 MG CAPSULE PO SCH ×2 (09:27→14:19)
[2022-04-02] MEDS: ASPIRIN 81 MG ECTAB PO SCH (09:27)
[2022-04-02] MEDS: CARBIDOPA/LEVODOPA 25-250 1 EA TAB PO SCH ×3 (09:27→20:04)
[2022-04-02] MEDS: FLUTICASONE FUROATE 100MCG 14 PUFFS/INHALER INH SCH (09:28)
[2022-04-02] MEDS: FINASTERIDE 5 MG TAB PO SCH (09:28)
[2022-04-02] MEDS: GABAPENTIN 600 MG TAB PO SCH ×2 (09:28→20:04)
[2022-04-02] MEDS: levETIRAcetam 500 MG TAB PO SCH ×2 (09:29→20:05)
[2022-04-02] MEDS: predniSONE 10 MG TABLET PO SCH (09:29)
[2022-04-02] MEDS: TOPIRAMATE 100 MG TAB PO SCH ×2 (09:30→20:05)
[2022-04-02] MEDS: SENNA 8.6 MG TAB PO SCH (09:30)
[2022-04-02] MEDS: UMECLIDINIUM/VILANTEROL 62.5/25MCG 7 PUFFS/INHALER INH SCH (09:30)
[2022-04-02] MEDS: LANTUS PER UNIT CHARGE SQ SCH ×2 (09:33→21:31)
[2022-04-02 10:32] LABS: INR 1.3 (0.9-1.1); Prothrombin Time 14.1 Seconds (9.0-12.0)
[2022-04-02 10:42] LABS: Magnesium 1.8 mg/dl (1.7-2.4); Phosphorus 2.6 mg/dl (2.5-4.9)
--- NOTE | 2022-04-02 11:23 | Electrocardiogram Report ---
Test Reason : Blood Pressure : / mmHG Vent. Rate : 094 BPM Atrial Rate : 094 BPM P-R Int : 136 ms QRS Dur : 088 ms QT Int : 364 ms P-R-T Axes : 018 -05 101 degrees QTc Int : 455 ms Sinus rhythm with Premature atrial complexes Possible Left atrial enlargement Abnormal ECG When compared with ECG of 26-FEB-2022 16:23, No significant change was found Confirmed by Josh Vora ([id number]) on 04/02/2022 11:23:23 AM Referred By: Josh Gaspar Confirmed By:Josh Vora
--- NOTE | 2022-04-02 12:54 | Communication Note ---
Date of Service: April 02, 2022 The patient was seen and examined by me. Agree with admission H&P. Sputum culture result will be obtained if sputum is produced. Daily lab ordered. IV fluids taper down. Nebulizer treatments ordered.
[2022-04-02] MEDS: ALBUT/IPRATROP 3MG/0.5MG NEB 3 ML VIAL NEB SCH ×3 (15:37→22:58)
[2022-04-02] MEDS: WARFARIN SOD 5 MG TAB PO SCH (17:26)
[2022-04-02] MEDS: CEFEPIME 1,000 MG in SYRINGE 0 ML IV SCH (17:29)
[2022-04-02] MEDS ORDERED: Nursing to Pharmacy Communication SCH (18:45)
[2022-04-02] MEDS: allopurinoL 100 MG TAB PO SCH (20:04)
[2022-04-02] MEDS: ATORVASTATIN 40 MG TAB PO SCH (20:05)
[2022-04-02] MEDS: POLYETHYLENE (MIRALAX) 17 GM PACK PO PRN (20:10)
[2022-04-02] MEDS: ACETAMINOPHEN 325 MG TAB PO PRN (20:18)
[2022-04-03] MEDS: INSULIN ASPART PER UNIT SC SCH ×6 (00:31→21:10)
[2022-04-03] MEDS: ALBUT/IPRATROP 3MG/0.5MG NEB 3 ML VIAL NEB SCH ×3 (02:23→11:11)
[2022-04-03] MEDS: CEFEPIME 1,000 MG in SYRINGE 0 ML IV SCH (05:51)
[2022-04-03 07:42] LABS: Basophils # (auto) 0.02 K/uL (0-0.2); Basophils % (auto) 0.3 %; Eosinophils # (auto) 0.14 K/uL (0-0.50); Eosinophils % (auto) 2.1 %; Hematocrit (blood only) 35.2 % (40.1-51.0); Hemoglobin 10.7 g/dl (14.0-18.0); Immature Granulocytes # (auto) 0.03 K/uL (0.00-0.02); Immature Granulocytes % (auto) 0.4 %; Lymphocytes # (auto) 1.02 K/uL (1.2-3.4); Lymphocytes % (auto) 15.1 %; Mean Corpuscular Hemoglobin 27.3 pg (25.0-34.0); Mean Corpuscular Hgb Conc 30.4 g/dL (32.0-36.0); Mean Corpuscular Volume 89.8 fL (80.0-100.0); Mean Platelet Volume 10.5 fL (9.4-12.4); Monocytes # (auto) 0.26 K/uL (0.24-0.82); Monocytes % (auto) 3.9 %; Neutrophils # (auto) 5.27 K/uL (1.4-6.5); Neutrophils % (auto) 78.2 %; Platelet Count 148 K/uL (130-400); RDW Coefficient of Variation 15.7 % (11.5-14.5); RDW Standard Deviation 51.7 fL (36.4-46.3); Red Blood Count 3.92 M/uL (4.63-6.08); White Blood Count 6.74 K/ul (4.8-10.8)
[2022-04-03] MEDS ORDERED: Nursing to Pharmacy Communication SCH (07:45)
[2022-04-03 08:16] LABS: INR 1.4 (0.9-1.1); Prothrombin Time 14.3 Seconds (9.0-12.0)
[2022-04-03 08:19] LABS: BUN Creatinine Ratio 23.8 (10-20); Calcium 8.8 mg/dl (8.5-10.1); Creatinine Clr Calc Pharmacy 64.3 ml/min; Est GFR (African American) 65.9 ml/min; Est GFR (Non-African American) 56.8 ml/min; Potassium 3.8 mmol/L (3.5-5.1)
[2022-04-03] MEDS: UMECLIDINIUM/VILANTEROL 62.5/25MCG 7 PUFFS/INHALER INH SCH (08:26)
[2022-04-03] MEDS: AMANTADINE HCL 100 MG CAPSULE PO SCH ×2 (08:26→14:32)
[2022-04-03] MEDS: ASPIRIN 81 MG ECTAB PO SCH (08:26)
[2022-04-03] MEDS: FINASTERIDE 5 MG TAB PO SCH (08:26)
[2022-04-03] MEDS: predniSONE 10 MG TABLET PO SCH (08:27)
[2022-04-03] MEDS: TOPIRAMATE 100 MG TAB PO SCH ×2 (08:27→21:53)
[2022-04-03] MEDS: levETIRAcetam 500 MG TAB PO SCH ×2 (08:27→21:51)
[2022-04-03] MEDS: SENNA 8.6 MG TAB PO SCH (08:27)
[2022-04-03] MEDS: CARBIDOPA/LEVODOPA 25-250 1 EA TAB PO SCH ×3 (08:28→21:51)
[2022-04-03] MEDS: GABAPENTIN 600 MG TAB PO SCH ×2 (08:28→21:52)
[2022-04-03] MEDS: FLUTICASONE FUROATE 100MCG 14 PUFFS/INHALER INH SCH (08:31)
[2022-04-03] MEDS: LANTUS PER UNIT CHARGE SQ SCH ×2 (08:32→21:10)
[2022-04-03 11:23] LABS: Appearance Urine Clear (Clear); Bilirubin Urine Negative (Negative); Blood Urine Negative (Negative); Color Urine Yellow; Glucose Urine UA Negative (Negative); Ketones Urine Negative (Negative); Leukocyte Esterase Urine Negative (Negative); Nitrite Urine Negative (Negative); Protein Urine Negative (Negative); Specific Gravity Urine 1.015 (1.000-1.030); Urobilinogen Urine Negative (Negative); pH Urine 5.5 (4.5-7.5)
--- NOTE | 2022-04-03 11:59 | Hospitalist Progress Note ---
Date of Service April 03, 2022 Assessment & Plan (1) Right lower lobe pneumonia: Plan: This is a 77yo male presenting with cough, sob, generalized weakness and fatigue. Patient hypoxic in the ER to 80% on 2L NC. Chest x ray showed evidence of right lobar PNA, he was recently discharged from this hospital elevated procalcitonin Cultures obtained Empirically started on IV Cefepime (2) SOB (shortness of breath): Plan: Due to PNA Continue mgt (3) Parkinsonism: Plan: Chronic. Stable. Carbidopa-Levodopa dosage recently increased to 25/250 mg po TID. He has also been started on Amantadine and his Gabapentin has been decreased to 300mg po BID -Continue Carbidopa-Levodopa 25/250mg po TID -Continue Amantadine -Continue Gabapentin 300mg po BID -Continue Tizanidine (4) Seizure-like activity: Plan: Stable. No reported seizure-like activity -Continue Keppra 1000mg po BID (5) Diabetes: Plan: Blood xhbip=796 presently -Lantus 7u BID -ISS -Goal blood sugar 110 - 140 -Continue Gabapentin (6) CAD (coronary artery disease): Plan: Mild elevation of troponin. EKG with no acute ischemic changes. Patient does complain of some tightness in his chest, worse with coughing -Telemetry monitoring -Trend troponin -Continue ASA, Atorvastatin (7) Aortic valve replaced: Plan: Patient on Coumadin anticoagulation. Goal INR 2.5 - 3.5 -Check INR -Continue Coumadin (8) Rheumatoid arthritis: Plan: Chronic. Stable -Continue Prednisone 10mg po daily -Low threshold for stress dosing if blood pressure declines (9) Prostate cancer: Plan: slight increase in PSA Not considered a relapse per Urology Plan continue to monitor Admission and Anticipated Discharge Date Admission Date: April 02, 2022 Subjective patient seen and examined, still coughing, but SOB is better Review of Systems Review of Systems: All systems reviewed are negative, apart from the ones contained in the history. Physical Exam Physical Exam: The patient is awake, alert and oriented 3, well developed and well nourished, normocephalic and atraumatic, lying in bed and in no acute distress. HEENT--PERRL, EOMI, mucous membranes and oropharynx mildly dry Neck--supple. No JVD. No bruits. Thyroid normal, trachea midline, no adenopathy. Heart--normal S1 and S2. No murmurs, rubs or gallops. Lungs--clear bilaterally, no respiratory distress, no accessory muscle use. Abdomen--normal bowel sounds and soft. Mild epigastric and left sided abdominal pain Extremities--no cyanosis or clubbing. No edema. Dermatologic--normal skin turgor, normal color, no abnormal lymph nodes, no rash. Neurologic--cranial nerves II through XII grossly intact. Rheumatologic--normal range of motion. Psychiatric--normal affect. Results & Data Results & Data ([facility]) Vital Signs (Past 12 Hours) Vital Signs Temp Pulse Pulse Resp BP Pulse Ox O2 Del Method 04/03/22 11:11 74 18 Nasal Cannula 04/03/22 08:00 71 04/03/22 08:00 Nasal Cannula 04/03/22 08:10 98.1 F 67 18 109/67 95 Nasal Cannula 04/03/22 07:15 81 18 96 Nasal Cannula 04/03/22 03:10 97.9 F 72 18 108/63 96 Nasal Cannula 04/03/22 01:38 71 O2 Flow Rate 04/03/22 11:11 3 04/03/22 08:00 04/03/22 08:00 2 04/03/22 08:10 95 04/03/22 07:15 3 04/03/22 03:10 2 04/03/22 01:38 PG Care Time/CCT Total # of Minutes Spent Total Time Spent with Patient: Total time spent is greater than 50% in coordination of care (as documented) at patient's floor/unit and/or counseling patient: Coding Level of Care Code 24982 Subseq Hosp Care Lvl 2 Diagnoses Right lower lobe pneumonia J18.9 Pneumonia type: due to unspecified organism SOB (shortness of breath) R06.02 Parkinsonism G20 Seizure-like activity R56.9 Diabetes E11.42; Z79.4 Diabetes mellitus type: type 2 Diabetes mellitus exterminator insulin use: with exterminator use Diabetes mellitus complication status: with neurologic complications Diabetes mellitus complication detail: with polyneuropathy CAD (coronary artery disease) I25.10 Coronary Disease-Associated Artery/Lesion type: [place] artery [place] vs. transplanted heart: [place] heart Associated angina: without angina Aortic valve replaced Z95.2 Rheumatoid arthritis M06.9 Rheumatoid arthritis location: unspecified site Rheumatoid factor presence: unspecified presence Prostate cancer C61 Time Spent (min) 35 (1) Diabetes Diabetes mellitus type: type 2 Diabetes mellitus exterminator insulin use: with shelter use Diabetes mellitus complication status: with neurologic complications Diabetes mellitus complication detail: with polyneuropathy Qualified Code(s): E11.42 - Type 2 diabetes mellitus with diabetic polyneuropathy; Z79.4 - long-term (current) use of insulin (2) CAD (coronary artery disease) Coronary Disease-Associated Artery/Lesion type: [place] artery [place] vs. transplanted heart: [place] heart Associated angina: without angina Qualified Code(s): I25.10 - Atherosclerotic heart disease of [place] coronary artery wit hout angina pectoris (3) Rheumatoid arthritis Rheumatoid arthritis location: unspecified site Rheumatoid factor presence: unspecified presence Qualified Code(s): M06.9 - Rheumatoid arthritis, unspecified (4) Right lower lobe pneumonia Pneumonia type: due to unspecified organism Qualified Code(s): J18.9 - Pneumonia, unspecified organism
[2022-04-03] MEDS: CEFEPIME 2,000 MG in SYRINGE 0 ML IV SCH ×2 (14:31→21:57)
[2022-04-03] MEDS: WARFARIN SOD 5 MG TAB PO SCH (17:25)
[2022-04-03] MEDS ORDERED: CEFEPIME 2,000 MG in SYRINGE 0 ML IV SCH (18:00)
[2022-04-03] MEDS: ACETAMINOPHEN 325 MG TAB PO PRN (18:25)
[2022-04-03] MEDS: ATORVASTATIN 40 MG TAB PO SCH (21:53)
[2022-04-03] MEDS: allopurinoL 100 MG TAB PO SCH (21:53)
[2022-04-04] MEDS: ALBUTEROL 0.5% NEB SOLN 2.5 MG/0.5 ML VIAL NEB PRN ×4 (02:03→20:44)
[2022-04-04] MEDS: CEFEPIME 2,000 MG in SYRINGE 0 ML IV SCH ×3 (06:18→20:43)
[2022-04-04 06:37] LABS: Basophils # (auto) 0.01 K/uL (0-0.2); Basophils % (auto) 0.2 %; Eosinophils # (auto) 0.17 K/uL (0-0.50); Eosinophils % (auto) 3.1 %; Hematocrit (blood only) 31.3 % (40.1-51.0); Hemoglobin 9.9 g/dl (14.0-18.0); Immature Granulocytes # (auto) 0.03 K/uL (0.00-0.02); Immature Granulocytes % (auto) 0.5 %; Lymphocytes # (auto) 0.94 K/uL (1.2-3.4); Mean Corpuscular Hemoglobin 27.6 pg (25.0-34.0); Mean Corpuscular Hgb Conc 31.6 g/dL (32.0-36.0); Mean Corpuscular Volume 87.2 fL (80.0-100.0); Mean Platelet Volume 10.8 fL (9.4-12.4); Monocytes # (auto) 0.25 K/uL (0.24-0.82); Monocytes % (auto) 4.5 %; Neutrophils # (auto) 4.14 K/uL (1.4-6.5); Neutrophils % (auto) 74.7 %; Platelet Count 135 K/uL (130-400); RDW Coefficient of Variation 14.9 % (11.5-14.5); RDW Standard Deviation 47.8 fL (36.4-46.3); Red Blood Count 3.59 M/uL (4.63-6.08); White Blood Count 5.54 K/ul (4.8-10.8)
[2022-04-04 06:46] LABS: INR 1.4 (0.9-1.1); Prothrombin Time 14.2 Seconds (9.0-12.0)
[2022-04-04] MEDS: ACETAMINOPHEN 325 MG TAB PO PRN (07:56)
[2022-04-04] MEDS: FLUTICASONE FUROATE 100MCG 14 PUFFS/INHALER INH SCH (07:57)
[2022-04-04] MEDS: UMECLIDINIUM/VILANTEROL 62.5/25MCG 7 PUFFS/INHALER INH SCH (07:57)
[2022-04-04] MEDS: GABAPENTIN 600 MG TAB PO SCH ×2 (07:58→20:44)
[2022-04-04] MEDS: TOPIRAMATE 100 MG TAB PO SCH ×2 (07:58→20:45)
[2022-04-04] MEDS: CARBIDOPA/LEVODOPA 25-250 1 EA TAB PO SCH ×3 (07:58→20:45)
[2022-04-04] MEDS: levETIRAcetam 500 MG TAB PO SCH ×2 (07:58→20:45)
[2022-04-04] MEDS: ASPIRIN 81 MG ECTAB PO SCH (07:59)
[2022-04-04] MEDS: SENNA 8.6 MG TAB PO SCH (07:59)
[2022-04-04] MEDS: AMANTADINE HCL 100 MG CAPSULE PO SCH ×2 (07:59→12:31)
[2022-04-04] MEDS: predniSONE 10 MG TABLET PO SCH (08:00)
[2022-04-04] MEDS: FINASTERIDE 5 MG TAB PO SCH (08:00)
[2022-04-04] MEDS: INSULIN ASPART PER UNIT SC SCH ×4 (08:06→20:46)
[2022-04-04] MEDS: LANTUS PER UNIT CHARGE SQ SCH ×2 (08:06→20:46)
[2022-04-04] MEDS: guaiFENesin/DEXTROM SYRUP 100MG/10MG 5ML UDC PO PRN ×2 (12:44→20:44)
--- NOTE | 2022-04-04 14:01 | Hospitalist Progress Note ---
Date of Service April 04, 2022 Assessment & Plan (1) Right lower lobe pneumonia: Plan: This is a 77yo male presenting with cough, sob, generalized weakness and fatigue. Patient hypoxic in the ER to 80% on 2L NC. Chest x ray showed evidence of right lobar PNA, he was recently discharged from this hospital Possibly Aspiration Pneumonia elevated procalcitonin Cultures obtained Empirically started on IV Cefepime Patient continues to have dry cough, will add Robitussin (2) SOB (shortness of breath): Plan: Due to possibly Aspiration PNA Continue mgt (3) Parkinsonism: Plan: Chronic. Stable. Carbidopa-Levodopa dosage recently increased to 25/250 mg po TID. He has also been started on Amantadine and his Gabapentin has been d ecreased to 300mg po BID -Continue Carbidopa-Levodopa 25/250mg po TID -Continue Amantadine -Continue Gabapentin 300mg po BID -Continue Tizanidine (4) Seizure-like activity: Plan: Stable. No reported seizure-like activity -Continue Keppra 1000mg po BID (5) Diabetes: Plan: Blood glucose under fair control Continue insulin sliding scale (6) CAD (coronary artery disease): Plan: Mild elevation of troponin, possibly demand ischemia. EKG with no acute ischemic changes. Patient does complain of some tightness in his chest, worse with coughing -Telemetry monitoring -Trend troponin -Continue ASA, Atorvastatin (7) Aortic valve replaced: Plan: Patient on Coumadin anticoagulation. Goal INR 2.5 - 3.5 -Check INR -Continue Coumadin (8) Rheumatoid arthritis: Plan: Chronic. Stable -Continue Prednisone 10mg po daily -Low threshold for stress dosing if blood pressure declines (9) Prostate cancer: Plan: Urology reported a slight increase in PSA Not considered a relapse per Urology (10) Elevated troponin: Plan: possibly demand ischemia No chest pain, no ST changes on EKG Plan continue hospitalization, he says he is not strong enough for discharge yet Admission and Anticipated Discharge Date Admission Date: April 02, 2022 Subjective patient seen and examined, continues to cough, says he is not strong enough to go home Review of Systems Review of Systems: All systems reviewed are negative, apart from the ones contained in the history. Physical Exam Physical Exam: The patient is awake, alert and oriented 3, well developed and well nourished, normocephalic and atraumatic, lying in bed and in no acute distress. HEENT--PERRL, EOMI, mucous membranes and oropharynx mildly dry Neck--supple. No JVD. No bruits. Thyroid normal, trachea midline, no a denopathy. Heart--normal S1 and S2. No murmurs, rubs or gallops. Lungs--clear bilaterally, no respiratory distress, no accessory muscle use. Abdomen--normal bowel sounds and soft. Mild epigastric and left sided abdominal pain Extremities--no cyanosis or clubbing. No edema. Dermatologic--normal skin turgor, normal color, no abnormal lymph nodes, no rash. Neurologic--cranial nerves II through XII grossly intact. Rheumatologic--normal range of motion. Psychiatric--normal affect. Results & Data Results & Data ([facility]) Vital Signs (Past 12 Hours) Vital Signs Temp Pulse Pulse Resp BP Pulse Ox O2 Del Method 04/04/22 12:03 97.9 F 63 20 120/69 96 Nasal Cannula 04/04/22 08:00 64 04/04/22 09:42 74 20 99 Nasal Cannula 04/04/22 07:52 97.5 F L 66 20 127/77 97 Nasal Cannula 04/04/22 03:05 97.5 F L 66 18 130/64 97 Nasal Cannula 04/04/22 02:03 62 18 97 Nasal Cannula O2 Flow Rate 04/04/22 12:03 3 04/04/22 08:00 04/04/22 09:42 3 04/04/22 07:52 3 04/04/22 03:05 3 04/04/22 02:03 3 PG Care Time/CCT Total # of Minutes Spent Total Time Spent with Patient: Total time spent is greater than 50% in coordination of care (as documented) at patient's floor/unit and/or counseling patient: Coding Level of Care Code 82468 Subseq Hosp Care Lvl 2 Diagnoses Right lower lobe pneumonia J18.9 Pneumonia type: due to unspecified organism SOB (shortness of breath) R06.02 Parkinsonism G20 Seizure-like activity R56.9 Diabetes E11.42; Z79.4 Diabetes mellitus type: type 2 Diabetes mellitus terminal supervisor insulin use: with terminal supervisor use Diabetes mellitus complication status: with neurologic complications Diabetes mellitus complication detail: with polyneuropathy CAD (coronary artery disease) I25.10 Coronary Disease-Associated Artery/Lesion type: [place] artery [place] vs. transplanted heart: [place] heart Associated angina: without angina Aortic valve replaced Z95.2 Rheumatoid arthritis M06.9 Rheumatoid arthritis location: unspecified site Rheumatoid factor presence: unspecified presence Prostate cancer C61 Elevated troponin R77.8 Time Spent (min) 35 (1) Right lower lobe pneumonia Pneumonia type: due to unspecified organism Qualified Code(s): J18.9 - Pneumonia, unspecified organism (2) Diabetes Diabetes mellitus type: type 2 Diabetes mellitus terminal supervisor insulin use: with terminal supervisor use Diabetes mellitus complication status: with neurologic complications Diabetes mellitus complication detail: with polyneuropathy Qualified Code(s): E11.42 - Type 2 diabetes mellitus with diabetic polyneuropathy; Z79.4 - intermediate (current) use of insulin (3) CAD (coronary artery disease) Coronary Disease-Associated Artery/Lesion type: [place] artery [place] vs. transplanted heart: [place] heart Associated angina: without angina Qualified Code(s): I25.10 - Atherosclerotic heart disease of [place] coronary artery without angina pectoris (4) Rheumatoid arthritis Rheumatoid arthritis location: unspecified site Rheumatoid factor presence: unspecified presence Qualified Code(s): M06.9 - Rheumatoid arthritis, unsp ecified
[2022-04-04] MEDS ORDERED: WARFARIN SOD 7.5 MG TAB PO SCH (16:00)
[2022-04-04] MEDS: allopurinoL 100 MG TAB PO SCH (20:45)
[2022-04-04] MEDS: ATORVASTATIN 40 MG TAB PO SCH (20:46)
[2022-04-05] MEDS: ALBUTEROL 0.5% NEB SOLN 2.5 MG/0.5 ML VIAL NEB PRN ×2 (01:17→20:11)
[2022-04-05] MEDS: CEFEPIME 2,000 MG in SYRINGE 0 ML IV SCH ×3 (05:47→21:00)
[2022-04-05 06:04] LABS: Basophils # (auto) 0.03 K/uL (0-0.2); Basophils % (auto) 0.6 %; Eosinophils # (auto) 0.17 K/uL (0-0.50); Eosinophils % (auto) 3.4 %; Hematocrit (blood only) 33.9 % (40.1-51.0); Hemoglobin 10.5 g/dl (14.0-18.0); Immature Granulocytes # (auto) 0.05 K/uL (0.00-0.02); Lymphocytes % (auto) 17.9 %; Mean Corpuscular Hemoglobin 27.4 pg (25.0-34.0); Mean Corpuscular Volume 88.5 fL (80.0-100.0); Mean Platelet Volume 10.2 fL (9.4-12.4); Monocytes # (auto) 0.28 K/uL (0.24-0.82); Monocytes % (auto) 5.6 %; Neutrophils % (auto) 71.5 %; Platelet Count 139 K/uL (130-400); RDW Coefficient of Variation 14.7 % (11.5-14.5); RDW Standard Deviation 47.5 fL (36.4-46.3); Red Blood Count 3.83 M/uL (4.63-6.08); White Blood Count 5.03 K/ul (4.8-10.8)
[2022-04-05 06:24] LABS: Calcium 9.1 mg/dl (8.5-10.1); Est GFR (African American) 83.8 ml/min; Est GFR (Non-African American) 72.3 ml/min; Potassium 3.6 mmol/L (3.5-5.1)
[2022-04-05 06:30] LABS: INR 1.3 (0.9-1.1); Prothrombin Time 13.6 Seconds (9.0-12.0)
[2022-04-05] MEDS: INSULIN ASPART PER UNIT SC SCH ×4 (08:42→21:14)
[2022-04-05] MEDS: AMANTADINE HCL 100 MG CAPSULE PO SCH ×2 (08:48→15:12)
[2022-04-05] MEDS: FINASTERIDE 5 MG TAB PO SCH (08:48)
[2022-04-05] MEDS: CARBIDOPA/LEVODOPA 25-250 1 EA TAB PO SCH ×3 (08:49→20:03)
[2022-04-05] MEDS: levETIRAcetam 500 MG TAB PO SCH ×2 (08:49→20:03)
[2022-04-05] MEDS: GABAPENTIN 600 MG TAB PO SCH ×2 (08:49→20:04)
[2022-04-05] MEDS: TOPIRAMATE 100 MG TAB PO SCH ×2 (08:49→20:05)
[2022-04-05] MEDS: predniSONE 10 MG TABLET PO SCH (08:50)
[2022-04-05] MEDS: SENNA 8.6 MG TAB PO SCH (08:50)
[2022-04-05] MEDS: ASPIRIN 81 MG ECTAB PO SCH (08:50)
[2022-04-05] MEDS: UMECLIDINIUM/VILANTEROL 62.5/25MCG 7 PUFFS/INHALER INH SCH (08:52)
[2022-04-05] MEDS: FLUTICASONE FUROATE 100MCG 14 PUFFS/INHALER INH SCH (08:52)
[2022-04-05] MEDS: LANTUS PER UNIT CHARGE SQ SCH ×2 (09:03→21:15)
[2022-04-05] MEDS: WARFARIN SOD 5 MG TAB PO SCH (15:12)
--- NOTE | 2022-04-05 16:03 | Hospitalist Progress Note ---
Date of Service April 05, 2022 Assessment & Plan (1) Right lower lobe pneumonia: Plan: This is a 77yo male presenting with cough, sob, generalized weakness and fatigue. Patient hypoxic in the ER to 80% on 2L NC. Chest x ray showed evidence of right lobar PNA, he was recently discharged from this hospital Possibly Aspiration Pneumonia elevated procalcitonin Cultures obtained, negative so far Empirically started on IV Cefepime Patient continues to have dry cough, will add Robitussin (2) SOB (shortness of breath): Plan: Due to possibly Aspiration PNA Continue mgt (3) Parkinsonism: Plan: Chronic. Stable. Carbidopa-Levodopa dosage recently increased to 25/250 mg po TID. He has also been started on Amantadine and his Gabapentin has been decreased to 300mg po BID -Continue Carbidopa-Levodopa 25/250mg po TID -Continue Amantadine -Continue Gabapentin 300mg po BID -Continue Tizanidine (4) Seizure-like activity: Plan: Stable. No reported seizure-like activity -Continue Keppra 1000mg po BID (5) Diabetes: Plan: Blood glucose under fair control Continue insulin sliding scale (6) CAD (coronary artery disease): Plan: Mild elevation of troponin, possibly demand ischemia. EKG with no acute ischemic changes. Patient does complain of some tightness in his chest, worse with coughing -Telemetry monitoring -Trend troponin -Continue ASA, Atorvastatin (7) Aortic valve replaced: Plan: Patient on Coumadin anticoagulation. Goal INR 2.5 - 3.5 -INR 1.3 today -Consult pharmacy -Continue Coumadin (8) Rheumatoid arthritis: Plan: Chronic. Stable -Continue Prednisone 10mg po daily -Low threshold for stress dosing if blood pressure declines (9) Prostate cancer: Plan: Urology reported a slight increase in PSA Not considered a relapse per Urology (10) Elevated troponin: Plan: possibly demand ischemia No chest pain, no ST changes on EKG Plan continue hospitalization, he says he is not strong enough for discharge yet Admission and Anticipated Discharge Date Admission Date: April 02, 2022 Subjective patient seen and examined, continues to cough, says he is not strong enough to go home, but much better than before Review of Systems Review of Systems: All systems reviewed are negative, apart from the ones contained in the history. Physical Exam Physical Exam: The patient is awake, alert and oriented 3, well developed and well nourished, normocephalic and atraumatic, lying in bed and in no acute distress. HEENT--PERRL, EOMI, mucous membranes and oropharynx mildly dry Neck--supple. No JVD. No bruits. Thyroid normal, trachea midline, no adenopathy. Heart--normal S1 and S2. No murmurs, rubs or gallops. Lungs--clear bilaterally, no respiratory distress, no accessory muscle use. Abdomen--normal bowel sounds and soft. Mild epigastric and left sided abdominal pain Extremities--no cyanosis or clubbing. No edema. Dermatologic--normal skin turgor, normal color, no abnormal lymph nodes, no rash. Neurologic--cranial nerves II through XII grossly intact. Rheumatologic--normal range of motion. Psychiatric--normal affect. Results & Data Results & Data ([facility]) Vital Signs (Past 12 Hours) Vital Signs Temp Pulse Pulse Resp BP Pulse Ox O2 Del Method 04/05/22 15:49 97.5 F L 65 19 125/73 94 Nasal Cannula 04/05/22 11:02 97.9 F 63 20 125/73 96 Room Air 04/05/22 08:00 Nasal Cannula 04/05/22 08:00 66 04/05/22 07:12 97.5 F L 61 18 125/65 94 Nasal Cannula O2 Flow Rate 04/05/22 15:49 04/05/22 11:02 04/05/22 08:00 2 04/05/22 08:00 04/05/22 07:12 3 PG Care Time/CCT Total # of Minutes Spent Total Time Spent with Patient: Total time spent is greater than 50% in coordination of care (as documented) at patient's floor/unit and/or counseling patient: Coding Level of Care Code 66721 Subseq Hosp Care Lvl 2 Diagnoses Right lower lobe pneumonia J18.9 Pneumonia type: due to unspecified organism SOB (shortness of breath) R06.02 Parkinsonism G20 Seizure-like activity R56.9 Diabetes E11.42; Z79.4 Diabetes mellitus type: type 2 Diabetes mellitus long chain quiller tender insulin use: with long-term use Diabetes mellitus complication status: with neurologic complications Diabetes mellitus complication detail: with polyneuropathy CAD (coronary artery disease) I25.10 Coronary Disease-Associated Artery/Lesion type: [place] artery [place] vs. transplanted heart: [place] heart Associated angina: without angina Aortic valve replaced Z95.2 Rheumatoid arthritis M06.9 Rheumatoid arthritis location: unspecified site Rheumatoid factor presence: unspecified presence Prostate cancer C61 Elevated troponin R77.8 Time Spent (min) 35 (1) Right lower lobe pneumonia Pneumonia type: due to unspecified organism Qualified Code(s): J18.9 - Pneumonia, unspecified organism (2) Diabetes Diabetes mellitus type: type 2 Diabetes mellitus long-term insulin use: with long-term use Diabetes mellitus complication status: with neurologic complications Diabetes mellitus complication detail: with polyneuropathy Qualified Code(s): E11.42 - Type 2 diabetes mellitus with diabetic polyneuropathy; Z79.4 - ferry terminal supervisor (current) use of insulin (3) CAD (coronary artery disease) Coronary Disease-Associated Artery/Lesion type: [place] artery [place] vs. transplanted heart: [place] heart Associated angina: without angina Qualified Code(s): I25.10 - Atherosclerotic heart disease of [place] coronary artery without angina pectoris (4) Rheumatoid arthritis Rheumatoid arthritis location: unspecified site Rheumatoid factor presence: unspecified presence Qualified Code(s): M06.9 - Rheumatoid arthritis, unspecified
[2022-04-05] MEDS: ATORVASTATIN 40 MG TAB PO SCH (20:04)
[2022-04-05] MEDS: allopurinoL 100 MG TAB PO SCH (20:04)
[2022-04-06] MEDS: CEFEPIME 2,000 MG in SYRINGE 0 ML IV SCH ×3 (06:23→22:01)
[2022-04-06 06:58] LABS: Hematocrit (blood only) 34.8 % (40.1-51.0); Mean Corpuscular Hemoglobin 27.8 pg (25.0-34.0); Mean Corpuscular Hgb Conc 31.6 g/dL (32.0-36.0); Mean Corpuscular Volume 87.9 fL (80.0-100.0); Mean Platelet Volume 9.8 fL (9.4-12.4); Platelet Count 141 K/uL (130-400); RDW Coefficient of Variation 14.6 % (11.5-14.5); RDW Standard Deviation 47.4 fL (36.4-46.3); Red Blood Count 3.96 M/uL (4.63-6.08); White Blood Count 5.54 K/ul (4.8-10.8)
[2022-04-06 07:14] LABS: INR 1.3 (0.9-1.1)
[2022-04-06 07:37] LABS: BUN Creatinine Ratio 22.6 (10-20); Calcium 9.4 mg/dl (8.5-10.1); Est GFR (African American) 70.7 ml/min; Potassium 3.9 mmol/L (3.5-5.1)
[2022-04-06] MEDS: ASPIRIN 81 MG ECTAB PO SCH (07:59)
[2022-04-06] MEDS: AMANTADINE HCL 100 MG CAPSULE PO SCH ×2 (08:00→13:28)
[2022-04-06] MEDS: predniSONE 10 MG TABLET PO SCH (08:00)
[2022-04-06] MEDS: GABAPENTIN 600 MG TAB PO SCH ×2 (08:00→20:04)
[2022-04-06] MEDS: SENNA 8.6 MG TAB PO SCH (08:01)
[2022-04-06] MEDS: CARBIDOPA/LEVODOPA 25-250 1 EA TAB PO SCH ×3 (08:01→20:05)
[2022-04-06] MEDS: levETIRAcetam 500 MG TAB PO SCH ×2 (08:01→20:03)
[2022-04-06] MEDS: UMECLIDINIUM/VILANTEROL 62.5/25MCG 7 PUFFS/INHALER INH SCH (08:02)
[2022-04-06] MEDS: TOPIRAMATE 100 MG TAB PO SCH ×2 (08:02→20:04)
[2022-04-06] MEDS: FINASTERIDE 5 MG TAB PO SCH (08:02)
[2022-04-06] MEDS: FLUTICASONE FUROATE 100MCG 14 PUFFS/INHALER INH SCH (08:02)
[2022-04-06] MEDS: INSULIN ASPART PER UNIT SC SCH ×4 (09:20→20:13)
[2022-04-06] MEDS: LANTUS PER UNIT CHARGE SQ SCH ×2 (09:20→20:13)
[2022-04-06] MEDS: POLYETHYLENE (MIRALAX) 17 GM PACK PO PRN ×2 (12:23→20:01)
[2022-04-06] MEDS ORDERED: WARFARIN SOD 10 MG TAB PO ONE (16:00)
--- NOTE | 2022-04-06 16:00 | Hospitalist Progress Note ---
Date of Service April 06, 2022 Assessment & Plan (1) Right lower lobe pneumonia: Plan: This is a 77yo male presenting with cough, sob, generalized weakness and fatigue. Patient hypoxic in the ER to 80% on 2L NC. Chest x ray showed evidence of right lobar PNA, he was recently discharged from this hospital Possibly Aspiration Pneumonia elevated procalcitonin Cultures obtained, negative so far Empirically started on IV Cefepime Patient continues to have dry cough, will add Robitussin Now Clinically much improved, WBC is wnl, afebrile (2) SOB (shortness of breath): Plan: Due to possibly Aspiration PNA Continue mgt Much improved patient on oxygen at home (3) Acute and chronic respiratory failure: Plan: secondary to PNA patient on oxygen at home He is now back to his baseline oxygen requirement (4) Parkinsonism: Plan: Chronic. Stable. Carbidopa-Levodopa dosage recently increased to 25/250 mg po TID. He has also been started on Amantadine and his Gabapentin has been decreased to 300mg po BID -Continue Carbidopa-Levodopa 25/250mg po TID -Continue Amantadine -Continue Gabapentin 300mg po BID -Continue Tizanidine (5) Seizure-like activity: Plan: Stable. No reported seizure-like activity -Continue Keppra 1000mg po BID (6) Diabetes: Plan: Blood glucose under fair control Continue insulin sliding scale (7) CAD (coronary artery disease): Plan: Mild elevation of troponin, possibly demand ischemia. EKG with no acute ischemic changes. Patient does complain of some tightness in his chest, worse with coughing -Telemetry monitoring -Trend troponin -Continue ASA, Atorvastatin (8) Aortic valve replaced: Plan: Patient on Coumadin anticoagulation. Goal INR 2.5 - 3.5 -INR 1.3 today -Give a one time dose og 10mg coumadin -Recheck INR -Continue Coumadin (9) Rheumatoid arthritis: Plan: Chronic. Stable -Continue Prednisone 10mg po daily -Low threshold for stress dosing if blood pressure declines (10) Prostate cancer: Plan: Urology reported a slight increase in PSA Not considered a relapse per Urology (11) Elevated troponin: Plan: possibly demand ischemia No chest pain, no ST changes on EKG Plan continue hospitalization, he says he is not strong enough for discharge yet Admission and Anticipated Discharge Date Admission Date: April 02, 2022 Subjective patient seen and examined, feels overall better, but says not strong enough for home yet Review of Systems Review of Systems: All systems reviewed are negative, apart from the ones contained in the history. Physical Exam Physical Exam: The patient is awake, alert and oriented 3, well developed and well nourished, normocephalic and atraumatic, lying in bed and in no acute distress. HEENT--PERRL, EOMI, mucous membranes and oropharynx mildly dry Neck--supple. No JVD. No bruits. Thyroid normal, trachea midline, no adenopathy. Heart--normal S1 and S2. No murmurs, rubs or gallops. Lungs--clear bilaterally, no respiratory distress, no accessory muscle use. Abdomen--normal bowel sounds and soft. Mild epigastric and left sided abdominal pain Extremities--no cyanosis or clubbing. No edema. Dermatologic--normal skin turgor, normal color, no abnormal lymph nodes, no rash. Neurologic--cranial nerves II through XII grossly intact. Rheumatologic--normal range of motion. Psychiatric--normal affect. Results & Data Results & Data ([facility]) Vital Signs (Past 12 Hours) Vital Signs Temp Pulse Pulse Resp BP Pulse Ox O2 Del Method 04/06/22 15:20 98.1 F 58 L 19 116/69 97 Room Air 04/06/22 15:00 71 04/06/22 11:08 97.7 F 64 17 128/67 97 Nasal Cannula 04/06/22 07:33 Room Air 04/06/22 07:19 56 L 04/06/22 07:17 97.9 F 58 L 18 139/79 98 Nasal Cannula O2 Flow Rate 04/06/22 15:20 04/06/22 15:00 04/06/22 11:08 3 04/06/22 07:33 04/06/22 07:19 04/06/22 07:17 2 PG Care Time/CCT Total # of Minutes Spent Total Time Spent with Patient: Total time spent is greater than 50% in coordination of care (as documented) at patient's floor/unit and/or counseling patient: Coding Level of Care Code 27901 Subseq Hosp Care Lvl 2 Diagnoses Right lower lobe pneumonia J18.9 Pneumonia type: due to unspecified organism SOB (shortness of breath) R06.02 Acute and chronic respiratory failure J96.20 Parkinsonism G20 Seizure-like activity R56.9 Diabetes E11.42; Z79.4 Diabetes mellitus type: type 2 Diabetes mellitus terminal operations supervisor insulin use: with long-term use Diabetes mellitus complication status: with neurologic complications Diabetes mellitus complication detail: with polyneuropathy CAD (coronary artery disease) I25.10 Coronary Disease-Associated Artery/Lesion type: [place] artery [place] vs. transplanted heart: [place] heart Associated angina: without angina Aortic valve replaced Z95.2 Rheumatoid arthritis M06.9 Rheumatoid arthritis location: unspecified site Rheumatoid factor presence: unspecified presence Prostate cancer C61 Elevated troponin R77.8 Time Spent (min) 35 (1) Right lower lobe pneumonia Pneumonia type: due to unspecified organism Qualified Code(s): J18.9 - Pneumonia, unspecified organism (2) Diabetes Diabetes mellitus type: type 2 Diabetes mellitus long-term insulin use: with terminal operations supervisor use Diabetes mellitus complication status: with neurologic complications Diabetes mellitus complication detail: with polyneuropathy Qualified Code(s): E11.42 - Type 2 diabetes mellitus with diabetic polyneuropathy; Z79.4 - care home (current) use of insulin (3) CAD (coronary artery disease) Coronary Disease-Associated Artery/Lesion type: [place] artery [place] vs. transplanted heart: [place] heart Associated angina: without angina Qualified Code(s): I25.10 - Atherosclerotic heart disease of [place] coronary artery without angina pectoris (4) Rheumatoid arthritis Rheumatoid arthritis location: unspecified site Rheumatoid factor presence: unspecified presence Qualified Code(s): M06.9 - Rheumatoid arthritis, unspecified
[2022-04-06] MEDS: ALBUTEROL 0.5% NEB SOLN 2.5 MG/0.5 ML VIAL NEB PRN (18:11)
[2022-04-06] MEDS: allopurinoL 100 MG TAB PO SCH (20:04)
[2022-04-06] MEDS: ATORVASTATIN 40 MG TAB PO SCH (20:05)
[2022-04-07] MEDS: CEFEPIME 2,000 MG in SYRINGE 0 ML IV SCH (05:41)
[2022-04-07 06:11] LABS: INR 1.3 (0.9-1.1); Prothrombin Time 14.1 Seconds (9.0-12.0)
[2022-04-07] MEDS: CARBIDOPA/LEVODOPA 25-250 1 EA TAB PO SCH (08:28)
[2022-04-07] MEDS: GABAPENTIN 600 MG TAB PO SCH (08:29)
[2022-04-07] MEDS: levETIRAcetam 500 MG TAB PO SCH (08:30)
[2022-04-07] MEDS: SENNA 8.6 MG TAB PO SCH (08:31)
[2022-04-07] MEDS: FINASTERIDE 5 MG TAB PO SCH (08:32)
[2022-04-07] MEDS: ASPIRIN 81 MG ECTAB PO SCH (08:32)
[2022-04-07] MEDS: AMANTADINE HCL 100 MG CAPSULE PO SCH (08:32)
[2022-04-07] MEDS: UMECLIDINIUM/VILANTEROL 62.5/25MCG 7 PUFFS/INHALER INH SCH (08:33)
[2022-04-07] MEDS: FLUTICASONE FUROATE 100MCG 14 PUFFS/INHALER INH SCH (08:33)
[2022-04-07] MEDS: predniSONE 10 MG TABLET PO SCH (08:33)
[2022-04-07] MEDS: TOPIRAMATE 100 MG TAB PO SCH (08:34)
[2022-04-07] MEDS: INSULIN ASPART PER UNIT SC SCH ×2 (08:39→12:06)
[2022-04-07] MEDS: LANTUS PER UNIT CHARGE SQ SCH (08:40)
[2022-04-07] MEDS: POLYETHYLENE (MIRALAX) 17 GM PACK PO PRN (08:41)
--- NOTE | 2022-04-07 14:44 | Discharge Summary ---
Date of Service April 07, 2022 Admission HPI Per Admitting Provider Xavi Bradford is a 77yo male with history of CAD, DM, PAF, mechanical aortic valve on Coumadin anticoagulation and steroid dependent RA presenting with one day of dry cough, SOB and generalized weakness. Patient reports he was having difficulty getting out of bed due to weakness. He denies fever or chills, no abdominal pain, nausea or vomiting. He feels a little confused at times. He had diarrhea earlier this week but now is complaining of constipation. Patient hypoxic in the ER to 80% on room air. Blood pressure in the 90's, responsive to 1L NSS bolus. Witnessed aspiration activity by ER staff following sips of water - wet sounding cough. ER Course: Cefepime NSS x 1L Principal Diagnosis Lobar PNA Discharge Exam The patient is awake, alert and oriented 3, well developed and well nourished, normocephalic and atraumatic, lying in bed and in no acute distress. HEENT--PERRL, EOMI, mucous membranes and oropharynx mildly dry Neck--supple. No JVD. No bruits. Thyroid normal, trachea midline, no adenopathy. Heart--normal S1 and S2. No murmurs, rubs or gallops. Lungs--clear bilaterally, no respiratory distress, no accessory muscle use. Abdomen--normal bowel sounds and soft. Mild epigastric and left sided abdominal pain Extremities--no cyanosis or clubbing. No edema. Dermatologic--normal skin turgor, normal color, no abnormal lymph nodes, no rash. Neurologic--cranial nerves II through XII grossly intact. Rheumatologic--normal range of motion. Psychiatric--normal affect. Discharge Data Allergies Allergy/AdvReac Type Severity Reaction Status Date / Time Iodinated Contrast Media Allergy Severe Anaphylaxis Verified 03/16/22 09:56 shellfish derived Allergy Severe Anaphylaxis Verified 03/16/22 09:56 tamsulosin [From Flomax] Allergy Intermediate Itching Verified 03/16/22 09:56 Tetanus Vaccines and Toxoid Allergy Unknown Unknown Verified 03/16/22 09:56 Consultations 04/02/22 05:50 ED Decision to Admit Stat Hospital Course (1) Right lower lobe pneumonia: This is a 77yo male presenting with cough, sob, generalized weakness and fatigue. Patient hypoxic in the ER to 80% on 2L NC. Chest x ray showed evidence of right lobar PNA, he was recently discharged from this hospital Possibly Aspiration Pneumonia elevated procalcitonin Cultures obtained, negative so far Empirically started on IV Cefepime Patient continues to have dry cough, will add Robitussin Now Clinically much improved, WBC is wnl, afebrile Discharge on PO cefdinir 300mg BID for 5 days (2) SOB (shortness of breath): Due to possibly Aspiration PNA Continue mgt Much improved patient on oxygen at home (3) Acute and chronic respiratory failure: secondary to PNA patient on oxygen at home He is now back to his baseline oxygen requirement (4) Parkinsonism: Chronic. Stable. Carbidopa-Levodopa dosage recently increased to 25/250 mg po TID. He has also been started on Amantadine and his Gabapentin has been decreased to 300mg po BID -Continue Carbidopa-Levodopa 25/250mg po TID -Continue Amantadine -Continue Gabapentin 300mg po BID -Continue Tizanidine (5) Seizure-like activity: Stable. No reported seizure-like activity -Continue Keppra 1000mg po BID (6) Diabetes: Blood glucose under fair control Continue insulin sliding scale (7) CAD (coronary artery disease): Mild elevation of troponin, possibly demand ischemia. EKG with no acute ischemic changes. Patient does complain of some tightness in his chest, worse with coughing -Telemetry monitoring -Trend troponin -Continue ASA, Atorvastatin (8) Aortic valve replaced: Patient on Coumadin anticoagulation. Goal INR 2.5 - 3.5 -INR 1.3 today -Give a one time dose og 10mg coumadin -Recheck INR -Continue Coumadin (9) Rheumatoid arthritis: Chronic. Stable -Continue Prednisone 10mg po daily -Low threshold for stress dosing if blood pressure declines (10) Prostate cancer: Urology reported a slight increase in PSA Not considered a relapse per Urology (11) Elevated troponin: possibly demand ischemia No chest pain, no ST changes on EKG Plan discharge home Total Time Total Time Spent Total Time Spent (In Minutes): 35 Discharge Plan Discharge Items Patient Disposition: Home - Self-Care Reason For Visit: SOB Discharge Diagnosis: Lobar Pneumonia Activity: Resume your previous activity Non-emergency contact: Primary Care Provider and Neurologist Call non-emergency contact if: you have any medication questions Follow-up/Referrals: Woytowich,Frances, PA-C [Outside Practitioners] - 04/14/22 10:45 am Diet: Regular Addtl Attending Provider Instructions: please make appointment to follow up with your regular doctors Pending Studies at Discharge: No Stand-Alone Forms: My [facility], Smoking Cessation Medications and DC Order Prescriptions: New ipratropium-albuterol 0.5 mg-3 mg(2.5 mg base)/3 mL solution for nebulization 3 ml inhalation Q8H PRN (Reason: wheezing) Qty: 90 0RF cefdinir 300 mg capsule 300 mg PO BID 5 Days Qty: 10 0RF Continued Trelegy Ellipta 100-62.5-25 mcg blister with device 1 inh inhalation QAM Qty: 60 5RF gabapentin 600 mg tablet 600 mg PO BID Qty: 60 2RF finasteride 5 mg tablet 5 mg PO QAM Qty: 30 3RF prednisone 10 mg tablet 10 mg PO QAM amantadine HCl 100 mg capsule See Rx Instructions .ROUTE .COMPLEX Qty: 180 4RF Rx Instructions: 1 cap po in AM and 1 cap po at 2PM tizanidine [Zanaflex] 2 mg capsule 2 mg PO HS PRN (Reason: muscle spasticity) Qty: 30 7RF topiramate [Topamax] 100 mg tablet 100 mg PO BID 30 Days Qty: 180 4RF cholecalciferol (vitamin D3) [Vitamin D3] 50 mcg (2,000 unit) capsule 4,000 unit PO HS atorvastatin 40 mg tablet 40 mg PO HS fexofenadine [Karlee Allergy] 180 mg Tablet 180 mg PO QAM acetaminophen 325 mg Tablet 650 mg PO Q4H PRN (Reason: pain) Qty: 30 0RF Rx Instructions: OTC aspirin 81 mg Tablet,Delayed Release (Dr/Ec) 81 mg PO QAM Qty: 30 0RF Rx Instructions: OTC albuterol sulfate [Ventolin HFA] 90 mcg/actuation HFA aerosol inhaler 2 puff INHALATION Q4H PRN (Reason: Shortness Of Breath Or Wheezing) oxycodone 5 mg tablet 5 mg PO Q6H PRN (Reason: pain) Qty: 10 0RF Rx Instructions: Initial Treatment allopurinol 100 mg tablet 100 mg QPM levetiracetam [Keppra] 500 mg tablet 1,000 mg PO BID insulin glargine [Lantus Solostar U-100 Insulin] 100 unit/mL (3 mL) insulin pen 20 unit SUBCUT BID polyethylene glycol 3350 [Miralax] 17 gram/dose powder 17 g PO BID PRN (Reason: Constipation) furosemide 20 mg tablet 20 mg PO QAM Trulicity 1.5 mg/0.5 mL pen injector 1.5 mg SUBCUT WK Rx Instructions: [place] sennosides [Senokot] 8.6 mg tablet 17.2 mg PO QAM warfarin 5 mg tablet See Rx Instructions .ROUTE .COMPLEX Rx Instructions: 5 mg orally; TAKES 5 MG ON SUN, SUN, SUN, SUN & SUN. THEN TAKES 7.5 MG ON & . TAKES QPM. potassium chloride [Klor-Con M20] 20 mEq tablet,ER particles/crystals 20 meq PO QAM magnesium 250 mg Tablet 250 mg PO QAM insulin aspart U-100 [Novolog Flexpen U-100 Insulin] 100 unit/mL (3 mL) insulin pen 0 sliding scale dose subcut ACHS Rx Instructions: supplemental scale for meal-time coverage and bed-time coverage. Discharge Orders: Discharge Order (Routine); Ordered 04/07/22 Ordered By: Yessi Canas Admission Data Admit Date/Time: 04/02/22 06:20 Attending Provider: Yessi Canas Admit Provider: Ana Dong Primary Care Provider: Josh Gaspar Other Providers: Debi Dogn Other Interventions: Discharge Summary Assessment (RN) Last Done: 04/07/22 12:06 Coding Level of Care Code D/C DAY MANAGEMENT >30 MINS Diagnoses Right lower lobe pneumonia J18.9 Pneumonia type: due to unspecified organism SOB (shortness of breath) R06.02 Acute and chronic respiratory failure J96.20 Parkinsonism G20 Seizure-like activity R56.9 Diabetes E11.42; Z79.4 Diabetes mellitus type: type 2 Diabetes mellitus nursing home insulin use: with intermediate designer use Diabetes mellitus complication status: with neurologic complications Diabetes mellitus complication detail: with polyneuropathy CAD (coronary artery disease) I25.10 Coronary Disease-Associated Artery/Lesion type: [place] artery [place] vs. transplanted heart: [place] heart Associated angina: without angina Aortic valve replaced Z95.2 Rheumatoid arthritis M06.9 Rheumatoid arthritis location: unspecified site Rheumatoid factor presence: unspecified presence Prostate cancer C61 Elevated troponin R77.8 Time Spent (min) 35
== END 2022-04-07 13:40 | disposition home or self-care (01) | DRG 177 ==
LOC: ED 03:22 → 4W 06:20 → SUATTDRO 06:20 → 4W 06:57
DX: Z99.81 Dependence on supplemental oxygen; Z79.4 Long term (current) use of insulin; Z91.041 Radiographic dye allergy status; I25.10 Atherosclerotic heart disease of native coronary artery without angina pectoris; M06.9 Rheumatoid arthritis, unspecified; R05.9 Cough, unspecified; Z79.51 Long term (current) use of inhaled steroids; Z82.49 Family history of ischemic heart disease and other diseases of the circulatory system; J96.21 Acute and chronic respiratory failure with hypoxia; J69.0 Pneumonitis due to inhalation of food and vomit; Z86.79 Personal history of other diseases of the circulatory system; N18.31 Chronic kidney disease, stage 3a; I25.2 Old myocardial infarction; G40.909 Epilepsy, unspecified, not intractable, without status epilepticus; S06.0X0A Concussion without loss of consciousness, initial encounter; Z95.5 Presence of coronary angioplasty implant and graft; E11.22 Type 2 diabetes mellitus with diabetic chronic kidney disease; G20 Parkinson's disease; Z98.1 Arthrodesis status; Z79.01 Long term (current) use of anticoagulants; Z86.69 Personal history of other diseases of the nervous system and sense organs; I24.8 Other forms of acute ischemic heart disease; J44.9 Chronic obstructive pulmonary disease, unspecified; Z86.73 Personal history of transient ischemic attack (TIA), and cerebral infarction without residual deficits; Y92.813 Airplane as the place of occurrence of the external cause; Z88.7 Allergy status to serum and vaccine; Z79.82 Long term (current) use of aspirin; W22.8XXA Striking against or struck by other objects, initial encounter; M54.2 Cervicalgia; Z79.899 Other long term (current) drug therapy; S00.83XA Contusion of other part of head, initial encounter; Z88.8 Allergy status to other drugs, medicaments and biological substances; Z20.822 Contact with and (suspected) exposure to COVID-19; Z95.2 Presence of prosthetic heart valve

== ENCOUNTER 2022-05-21 21:16 | Inpatient (IN) ==
[2022-05-21] MEDS ORDERED: SODIUM CHLORIDE 0.9% 1000ML 1,000 ML IV SCH (21:30)
[2022-05-21 21:57] LABS: Basophils # (auto) 0.03 K/uL (0-0.2); Basophils % (auto) 0.4 %; Eosinophils % (auto) 1.4 %; Hematocrit (blood only) 35.9 % (40.1-51.0); Hemoglobin 11.4 g/dl (14.0-18.0); Immature Granulocytes # (auto) 0.07 K/uL (0.00-0.02); Lymphocytes # (auto) 1.76 K/uL (1.2-3.4); Lymphocytes % (auto) 24.5 %; Mean Corpuscular Hemoglobin 27.9 pg (25.0-34.0); Mean Corpuscular Hgb Conc 31.8 g/dL (32.0-36.0); Mean Corpuscular Volume 87.8 fL (80.0-100.0); Mean Platelet Volume 9.4 fL (9.4-12.4); Monocytes # (auto) 0.26 K/uL (0.24-0.82); Monocytes % (auto) 3.6 %; Neutrophils # (auto) 4.96 K/uL (1.4-6.5); Neutrophils % (auto) 69.1 %; Platelet Count 173 K/uL (130-400); RDW Standard Deviation 51.3 fL (36.4-46.3); Red Blood Count 4.09 M/uL (4.63-6.08); White Blood Count 7.18 K/ul (4.8-10.8)
[2022-05-21 22:07] LABS: Albumin Level 3.2 gm/dl (3.4-5.0); BUN Creatinine Ratio 30.4 (10-20); Bilirubin,Total 0.6 mg/dl (0.2-1.0); Calcium 9.1 mg/dl (8.5-10.1); Creatinine Clr Calc Pharmacy 67.2 ml/min; Est GFR (African American) 70.7 ml/min; Globulin 3.1 gm/dl (2.5-4.0); Potassium 3.8 mmol/L (3.5-5.1); Total Protein 6.3 gm/dl (6.0-8.3)
[2022-05-21 22:18] LABS: INR 2.2 (0.9-1.1); Partial Thromboplastin Ratio 1.6; Prothrombin Time 22.1 Seconds (9.0-12.0)
--- NOTE | 2022-05-21 22:18 | Emergency Department Note ---
Impression & Plan Fall, CHI (closed head injury), Acute pain of right hip, Generalized weakness ED Provider Note INFORMANT: Patient ED PROVIDER(S): Cas Elizabeth MD CHIEF COMPLAINT: Fall PLAN: Disposition: Admitted Condition: Good Outpatient prescription management: none Referral: None MEDICAL DECISION MAKING: Patient presented because of a fall and complaining of hip pain. He also did strike his head. He states he has been progressively more weak and today could not get around well and lost his balance. Work-up was initiated. Patient an IV established. He was hydrated. Patient declined analgesia. CT imaging of the head and right hip were negative for fracture or head bleed. The patient had a therapeutic INR. His chest x-ray showed some mild atelectasis at the bases. No mohsen of ultras were noted. The patient had a bio fire test performed due to his cough and he was found to have a rhinovirus/enterovirus. COVID testing negative. Urinalysis is pending at this time. Patient's troponin and electrolytes were unremarkable except for mild dehydration and mild hyper glycemia. Patient feels that he is too weak to function at home. He has had multiple falls. Further management in the hospital was deemed appropriate. Consultation was made with Dr. Shayan Mims of the [facility] service. Patient was evaluated in the ER for further management. Triage Nursing notes reviewed and agree them. Vital Signs: reviewed and remarkable for mild tachycardia Prior /Outside records reviewed: Prior ED visits reviewed. Differential diagnosis: Contusion, fracture, intracranial bleeding, infection, dehydration, metabolic abnormality, hypo/hyperglycemia, electrolyte disturbance, anemia, hypoxia, cardiac sources,neurologic, as well as other pathologies. Diagnostics, as interpreted by me: ECG: Twelve-lead ECG reveals a sinus rhythm with PACs at [address] elevation or depression. Cardiac Monitoring: Cardiac monitoring ordered by me: The patient was placed on continuous cardiac monitoring and observed. It revealed a sinus tachycardic rhythm at 114 bpm. Medical decision rules: none Imaging studies: Chest x-ray as noted above. Head CT and CT scan of the hip were negative for acute traumatic findings. I refer you to the EMR for further details. HPI: The patient is a 77year old male who presents to the Emergency Room with complaints of a fall. This started this evening and is described as accidental. Patient states he was feeling weak and lost his balance. The patient also notes the following associated symptoms, headache from striking his head, right hip pain, cough. The patient has taken no medication for relieving factors. Current pain is rated as 5/10. Patient is unable to bear weight because of the right hip pain. Pt denies LOC, headache, fevers, chills, diaphoresis, visual changes, neck pain, chest pain, breathing difficulties, nausea, vomiting, abdominal pain, back pain, melena, hematochezia, urinary symptoms, numbness, weakness, lymphadenopathy, rash, or other complaints. PAST MEDICAL HISTORY: See Below, CKD, pneumonia PAST SURGICAL HISTORY: See Below, SOCIAL HISTORY: See Below, [facility] MEDICATIONS: See Below ALLERGIES: See Below VITALS: See Below PHYSICAL EXAMINATION: GENERAL: Awake, alert, uncomfortable-appearing, in no distress HENT: Normocephalic, atraumatic. Oropharynx unremarkable. EYES: Normal conjunctiva. Sclera non-icteric. NECK: Inspection normal. Non-tender. Supple. No nuchal rigidity. FROM. No mas ses. RESPIRATORY: Clear to auscultation. No wheezes. No rales. Normal respiratory effort. CARDIAC: Normal rate. Normal rhythm. No murmurs. No rubs. Extremities warm and well perfused. Pulses equal. No JVD. GI: Soft, non-distended. No tenderness to palpation. No rebound or guarding. No masses. RECTAL: Deferred. MUSCULOSKELETAL: Minimal abrasion noted to right knee. There is right hip tenderness to palpation. Left lower extremity and both upper extremities are atraumatic. Chest examination reveals no tenderness. There is no CVA tenderness to palpation. No joint edema. Calves are equal size bilaterally and non-tender. No discoloration. NEURO: Normal sensorium. No sensory or motor deficits noted. SKIN: No rash or jaundice noted. Past Med/Surg History Medical History Anemia CAD (coronary artery disease) Cerebrovascular accident Chronic kidney disease, stage 3a Chronic respiratory failure with hypoxia Current use of skilled nursing anticoagulation Depression Diabetes Elevated troponin Generalized weakness Hypoxia Non-ST elevation NE (NSTEMI) Non-sustained ventricular tachycardia PAF (paroxysmal atrial fibrillation) Rheumatoid arthritis Right lower lobe pneumonia Shortness of breath Stroke-like symptom 12/2019, w/ blurry vision and dysarthria. mild R sided wkness. attending outpatient physical therapy w/ good improvement in strength (5+/5 strength of all 4 extremities as of 05/28/20) Syncope Surgical History H/O hernia repair History of aortic valve replacement History of cholecystectomy History of fusion of cervical spine History of heart artery stent History of lung biopsy 2019 History of partial nephrectomy Family History Mother , age 87 of pulmonary issues Rheumatoid arthritis Father , in his mid 80s of a stroke Stroke Other Coronary heart disease Social History Smoking Status: Never smoker Second Hand Exposure: No; Hx Alcohol Use: No Hx Substance Use: No Preferred Language: Greek Communication Ability: Effective Hearing Ability: Hard of Hearing Olericulture Teacher Required: No Beliefs That Will Affect Care: None marital status: / Current Living Situation: Alone Current Living Situation Comment: lives alone in a one story house in [place] current occupational status: retired 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 How many Children do You have: 2 How many Children do You have Comment: son Feels Safe at Home: Yes Assistive Devices: Walker Allergies Allergies Allergy/AdvReac Type Severity Reaction Status Date / Time Iodinated Contrast Media Allergy Severe Anaphylaxis Verified 05/21/22 21:44 shellfish derived Allergy Severe Anaphylaxis Verified 05/21/22 21:44 tamsulosin [From Flomax] Allergy Intermediate Itching Verified 05/21/22 21:44 Tetanus Vaccines and Toxoid Allergy Unknown Unknown Verified 05/21/22 21:44 Home Meds Home Medications Medication Instructions Recorded Confirmed atorvastatin 40 mg tablet 40 mg PO HS 05/28/20 05/21/22 fexofenadine 180 mg tablet 180 mg PO QAM 02/11/21 05/21/22 (Karlee Allergy) allopurinol 100 mg tablet 100 mg PO DAILY 04/10/21 05/21/22 levetiracetam 500 mg tablet See Rx Instructions .Route .COMPLEX 06/30/21 05/21/22 (Keppra) cholecalciferol (vitamin D3) 50 4,000 unit PO HS 07/14/21 05/21/22 mcg (2,000 unit) capsule (Vitamin D3) prednisone 10 mg tablet 10 mg PO QAM 07/14/21 05/21/22 insulin glargine 100 unit/mL (3 20 unit subcut BID 07/26/21 05/21/22 mL) subcutaneous pen (Lantus Solostar U-100 Insulin) albuterol sulfate 90 mcg/actuation 2 puff inhalation Q4H PRN 09/27/21 05/21/22 aerosol inhaler (Ventolin HFA) Shortness Of Breath Or Wheezing polyethylene glycol 3350 17 17 g PO BID PRN Constipation 10/04/21 05/21/22 gram/dose oral powder (Miralax) furosemide 20 mg tablet 20 mg PO QAM 11/24/21 05/21/22 sennosides 8.6 mg tablet (Senokot) 17.2 mg PO QAM 11/24/21 05/21/22 warfarin 5 mg tablet See Rx Instructions .Route .COMPLEX 11/24/21 05/21/22 insulin aspart U-100 100 unit/mL 0 sliding scale dose subcut ACHS 02/26/22 05/21/22 (3 mL) subcutaneous pen (Novolog FlexPen U-100 Insulin aspart) carbidopa 25 mg-levodopa 100 mg 1 tab PO QID 05/21/22 05/21/22 tablet diclofenac sodium 1 % topical gel 2 g topical DAILY 05/21/22 05/21/22 gabapentin 300 mg capsule 300 mg PO DAILY 05/21/22 05/21/22 insulin NPH isoph U-100 human 100 10 unit subcut QAM 05/21/22 05/21/22 unit/mL subcutaneous suspension (Novolin N NPH U-100 Insulin isophane) Previous Rx's Medication Instructions Recorded acetaminophen 325 mg tablet 650 mg PO Q4H PRN pain #30 tabs 08/04/21 aspirin 81 mg tablet,delayed 81 mg PO QAM #30 tabs 08/04/21 release fluticasone fur. 100 mcg-umeclid 1 inh inhalation QAM #60 ea 09/06/21 62.5 mcg-vilant 25 mcg inhalat.powder (Trelegy Ellipta) finasteride 5 mg tablet 5 mg PO QAM #30 tabs 12/12/21 topiramate 100 mg tablet (Topamax) 100 mg PO BID 30 days #180 tabs 12/29/21 Results & Data (ED) Vital Signs Vital Signs - 24 hr 05/21/22 21:12 05/21/22 21:12 Temperature 36.8 C 36.7 C Temperature Source Oral Oral Pulse Rate 114 H Pulse Rate [Apical] 114 H Pulse Rhythm Irregular Pulse Rhythm [Apical] Irregular Pulse Strength [Apical] Normal Respiratory Rate 22 22 Respiratory Effort / Characteristics Non-Labored Non-Labored Respiratory Depth Normal Normal Respiratory Pattern Regular Blood Pressure 131/73 Blood Pressure [Left Calf] 131/73 Blood Pressure Mean 92 Blood Pressure Mean [Left Calf] 92 Pulse Oximetry 95 94 Oxygen Delivery Method Room Air Room Air Sepsis Recent Fever Within 48 Hours No Sepsis New/Unexplained Change in Mental Status N/A Sepsis Action Taken by Nursing Physician Notified Laboratory Data 05/21/22 21:35 05/21/22 21:35 Lab Results 05/21/22 05/21/22 05/21/22 Range/Units 21:35 21:35 21:35 WBC 7.18 (4.8-10.8) K/ul RBC 4.09 L (4.63-6.08) M/uL Hgb 11.4 L (14.0-18.0) g/dl Hct 35.9 L (40.1-51.0) % MCV 87.8 (80.0-100.0) fL MCH 27.9 (25.0-34.0) pg MCHC 31.8 L (32.0-36.0) g/dL RDW Std Deviation 51.3 H (36.4-46.3) fL RDW Coeff of Lianne 16.0 H (11.5-14.5) % Plt Count 173 (130-400) K/uL MPV 9.4 (9.4-12.4) fL Immature Gran % (Auto) 1.0 % Neut % (Auto) 69.1 % Lymph % (Auto) 24.5 % [place] % (Auto) 3.6 % Eos % (Auto) 1.4 % Baso % (Auto) 0.4 % Neut # (Auto) 4.96 (1.4-6.5) K/uL Lymph # (Auto) 1.76 (1.2-3.4) K/uL [place] # (Auto) 0.26 (0.24-0.82) K/uL Eos # (Auto) 0.10 (0-0.50) K/uL Baso # (Auto) 0.03 (0-0.2) K/uL Immature Gran # (Auto) 0.07 H (0.00-0.02) K/uL PT 22.1 H (9.0-12.0) Seconds INR 2.2 H (0.9-1.1) APTT 45.3 H* (21.0-31.0) Seconds PTT Ratio 1.6 Sodium 138 (136-145) mmol/L Potassium 3.8 (3.5-5.1) mmol/L Chloride 108 H (98-107) mmol/L Carbon Dioxide 22 (21-32) mmol/L Anion Gap 8 (3-11) BUN 35 H (6-23) mg/dl Creatinine 1.15 (0.6-1.4) mg/dl Est Cr Clr Drug Dosing 67.2 ml/min Est GFR ( Amer) 70.7 ml/min Est GFR (Non-Af Amer) 61.0 ml/min BUN/Creatinine Ratio 30.4 H (10-20) Glucose 250 H (70-99(Fasting)) mg/dl Calcium 9.1 (8.5-10.1) mg/dl Total Bilirubin 0.6 (0.2-1.0) mg/dl AST 37 (13-39) U/L ALT 13 (7-52) U/L Alkaline Phosphatase 77 (34-104) U/L Troponin I High Sens 12.5 (0-20) pg/ml Total Protein 6.3 (6.0-8.3) gm/dl Albumin 3.2 L (3.4-5.0) gm/dl Globulin 3.1 (2.5-4.0) gm/dl Albumin/Globulin Ratio 1.0 (0.9-2) Adenovirus (PCR) (NotDetected) B. pertussis DNA (PCR) (NotDetected) B.parapertussis DNA PCR (NotDetected) C. pneumoniae DNA (PCR) (NotDetected) Coronavirus OC43 (PCR) (NotDetected) Coronavirus HKU1 (PCR) (NotDetected) Coronavirus 229E (PCR) (NotDetected) SARS-CoV-2 (PCR) (NotDetected) Coronavirus NL63 (PCR) (NotDetected) Human Metapneumovir PCR (NotDetected) Influenza Type A (PCR) (NotDetected) Influenza Type B (PCR) (NotDetected) M. pneumoniae (PCR) (NotDetected) Parainfluenza 1 (PCR) (NotDetected) Parainfluenza 2 (PCR) (NotDetected) Parainfluenza 3 (PCR) (NotDetected) Parainfluenza 4 (PCR) (NotDetected) RSV (PCR) (NotDetected) Entero/Rhino (PCR) (NotDetected) 05/21/22 Range/Units Unknown WBC (4.8-10.8) K/ul RBC (4.63-6.08) M/uL Hgb (14.0-18.0) g/dl Hct (40.1-51.0) % MCV (80.0-100.0) fL MCH (25.0-34.0) pg MCHC (32.0-36.0) g/dL RDW Std Deviation (36.4-46.3) fL RDW Coeff of Lianne (11.5-14.5) % Plt Count (130-400) K/uL MPV (9.4-12.4) fL Immature Gran % (Auto) % Neut % (Auto) % Lymph % (Auto) % [place] % (Auto) % Eos % (Auto) % Baso % (Auto) % Neut # (Auto) (1.4-6.5) K/uL Lymph # (Auto) (1.2-3.4) K/uL [place] # (Auto) (0.24-0.82) K/uL Eos # (Auto) (0-0.50) K/uL Baso # (Auto) (0-0.2) K/uL Immature Gran # (Auto) (0.00-0.02) K/uL PT (9.0-12.0) Seconds INR (0.9-1.1) APTT (21.0-31.0) Seconds PTT Ratio Sodium (136-145) mmol/L Potassium (3.5-5.1) mmol/L Chloride (98-107) mmol/L Carbon Dioxide (21-32) mmol/L Anion Gap (3-11) BUN (6-23) mg/dl Creatinine (0.6-1.4) mg/dl Est Cr Clr Drug Dosing ml/min Est GFR ( Amer) ml/min Est GFR (Non-Af Amer) ml/min BUN/Creatinine Ratio (10-20) Glucose (70-99(Fasting)) mg/dl Calcium (8.5-10.1) mg/dl Total Bilirubin (0.2-1.0) mg/dl AST (13-39) U/L ALT (7-52) U/L Alkaline Phosphatase (34-104) U/L Troponin I High Sens (0-20) pg/ml Total Protein (6.0-8.3) gm/dl Albumin (3.4-5.0) gm/dl Globulin (2.5-4.0) gm/dl Albumin/Globulin Ratio (0.9-2) Adenovirus (PCR) Not Detected (NotDetected) B. pertussis DNA (PCR) Not Detected (NotDetected) B.parapertussis DNA PCR Not Detected (NotDetected) C. pneumoniae DNA (PCR) Not Detected (NotDetected) Coronavirus OC43 (PCR) Not Detected (NotDetected) Coronavirus HKU1 (PCR) Not Detected (NotDetected) Coronavirus 229E (PCR) Not Detected (NotDetected) SARS-CoV-2 (PCR) Not Detected (NotDetected) Coronavirus NL63 (PCR) Not Detected (NotDetected) Human Metapneumovir PCR Not Detected (NotDetected) Influenza Type A (PCR) Not Detected (NotDetected) Influenza Type B (PCR) Not Detected (NotDetected) M. pneumoniae (PCR) Not Detected (NotDetected) Parainfluenza 1 (PCR) Not Detected (NotDetected) Parainfluenza 2 (PCR) Not Detected (NotDetected) Parainfluenza 3 (PCR) Not Detected (NotDetected) Parainfluenza 4 (PCR) Not Detected (NotDetected) RSV (PCR) Not Detected (NotDetected) Entero/Rhino (PCR) DETECTED A* (NotDetected) Administered Medications Sodium Chloride (Nss 1000ml) 1,000 mls @ 75 mls/hr IV .[id number] KIRSTEN Stop: 05/22/22 10:49 Last Admin: 05/21/22 22:28 Dose: 75 mls/hr Documented By: ALDO Discharge Plan Visit Data Chief Complaint: Fall Stated Complaint: R Hip Pain, Head Pain ED Provider: Cas Elizabeth Discharge Problem: Fall, CHI (closed head injury), Acute pain of right hip, Generalized weakness Forms Stand Alone Forms: My [facility] Prescriptions Prescriptions: No Action Trelegy Ellipta 100-62.5-25 mcg blister with device 1 inh inhalation QAM Qty: 60 5RF finasteride 5 mg tablet 5 mg PO QAM Qty: 30 3RF prednisone 10 mg tablet 10 mg PO QAM topiramate [Topamax] 100 mg tablet 100 mg PO BID 30 Days Qty: 180 4RF cholecalciferol (vitamin D3) [Vitamin D3] 50 mcg (2,000 unit) capsule 4,000 unit PO HS atorvastatin 40 mg tablet 40 mg PO HS fexofenadine [Karlee Allergy] 180 mg Tablet 180 mg PO QAM acetaminophen 325 mg Tablet 650 mg PO Q4H PRN (Reason: pain) Qty: 30 0RF Rx Instructions: OTC aspirin 81 mg Tablet,Delayed Release (Dr/Ec) 81 mg PO QAM Qty: 30 0RF Rx Instructions: OTC albuterol sulfate [Ventolin HFA] 90 mcg/actuation HFA aerosol inhaler 2 puff INHALATION Q4H PRN (Reason: Shortness Of Breath Or Wheezing) Novolin N NPH U-100 Insulin 100 unit/mL Suspension 10 unit SUBCUT QAM gabapentin 300 mg capsule 300 mg PO DAILY carbidopa-levodopa 25-100 mg tablet 1 tab PO QID diclofenac sodium [Voltaren] 1 % Gel 2 g TOPICAL DAILY allopurinol 100 mg tablet 100 mg PO DAILY levetiracetam [Keppra] 500 mg tablet See Rx Instructions .ROUTE .COMPLEX Rx Instructions: 500 MG; TAKES 1,000 MG QAM, THEN 750 MG HS. insulin glargine [Lantus Solostar U-100 Insulin] 100 unit/mL (3 mL) insulin pen 20 unit SUBCUT BID polyethylene glycol 3350 [Miralax] 17 gram/dose powder 17 g PO BID PRN (Reason: Constipation) furosemide 20 mg tablet 20 mg PO QAM sennosides [Senokot] 8.6 mg tablet 17.2 mg PO QAM warfarin 5 mg tablet See Rx Instructions .ROUTE .COMPLEX Rx Instructions: 5 mg orally; TAKES 7.5 MG ON SUN, MON, WED, FRI & SAT. THEN TAKES 5 MG ON & TH. TAKES QPM. insulin aspart U-100 [Novolog FlexPen U-100 Insulin] 100 unit/mL (3 mL) insulin pen 0 sliding scale dose subcut ACHS Rx Instructions: supplemental scale for meal-time coverage and bed-time coverage. Referrals Referrals: Josemanuel Melo MD [Outside Practitioners] -
[2022-05-21 22:36] LABS: Partial Thromboplastin Time 45.3 Seconds (21.0-31.0)
[2022-05-21 22:42] LABS: Adenovirus PCR Not Detected (NotDetected); Bordetella parapertussis PCR Not Detected (NotDetected); Bordetella pertussis PCR Not Detected (NotDetected); Chlamydia pneumoniae PCR Not Detected (NotDetected); Coronavirus 229E PCR Not Detected (NotDetected); Coronavirus CoV-2 (COVID19)PCR Not Detected (NotDetected); Coronavirus HKU1 PCR Not Detected (NotDetected); Coronavirus NL63 PCR Not Detected (NotDetected); Coronavirus OC43PCR Not Detected (NotDetected); Human Metapneumovirus PCR Not Detected (NotDetected); Influenza A PCR Not Detected (NotDetected); Influenza B PCR Not Detected (NotDetected); Mycoplasma pneumoniae PCR Not Detected (NotDetected); Parainfluenza Virus 1 PCR Not Detected (NotDetected); Parainfluenza Virus 2 PCR Not Detected (NotDetected); Parainfluenza Virus 3 PCR Not Detected (NotDetected); Parainfluenza Virus 4 PCR Not Detected (NotDetected); Respiratory Syncytial VirusPCR Not Detected (NotDetected)
[2022-05-21 23:03] LABS: Rhinovirus/Enterovirus PCR DETECTED (NotDetected)
[2022-05-22 00:09] LABS: Troponin I High Sensitivity 12.5 pg/ml (0-20)
[2022-05-22 00:40] LABS: Appearance Urine Clear (Clear); Bacteria Urine Automated Negative (Negative); Bilirubin Urine Negative (Negative); Blood Urine Negative (Negative); Color Urine Dark Yellow; Epithelial Cell Urine Auto 0-5 /lpf (0-5); Glucose Urine UA Negative (Negative); Ketones Urine Trace (Negative); Leukocyte Esterase Urine Negative (Negative); Nitrite Urine Negative (Negative); Protein Urine Trace (Negative); RBC Urine Automated 0-4 /hpf (0-4); Specific Gravity Urine 1.022 (1.000-1.030); Urobilinogen Urine Negative (Negative); WBC Urine Automated 0 /hpf (0-5); pH Urine 5.5 (4.5-7.5)
--- NOTE | 2022-05-22 00:49 | History & Physical Report ---
Date of Service May 22, 2022 Assessment & Plan (1) Generalized weakness: (2) Idiopathic polyneuropathy: (3) Depression: (4) Chronic kidney disease, stage 3a: (5) Asthma: (6) Acute bronchitis due to Rhinovirus: (7) Fall: (8) Ambulatory dysfunction: (9) Seizure-like activity: (10) Parkinsonism: (11) Prostate cancer: (12) Diabetes: (13) CAD (coronary artery disease): (14) Aortic valve replaced: (15) Rheumatoid arthritis: Plan Generalized weakness/status post fall/chronic ambulatory dysfunction- CT of head and CT of hip negative for acute injury Likely acute worsening of generalized weakness and debilitation due to bronchitis associated with rhinovirus/enterovirus Treat bronchitis, and then get PT/OT assessment Acute bronchitis due to rhinovirus/secondary bacterial/COPD- Methylprednisolone 20 mg IV every 8 hours Pulmicort Respules 0.5 mg inhaled twice daily Duonebs every 4 hours while awake and every 2 hours when necessary. Guaifenesin extended release 1200 mg p.o. twice daily Nasal cannula oxygen, titrate to keep pulse ox around 94% Azithromycin 500 mg IV daily Continue usual inhalers Atrial fibrillation/CHF- Continue aspirin Hold furosemide, as patient looks mildly volume depleted Continue warfarin and check INR daily, presently therapeutic at 2.2 Parkinsonism- Continue carbidopa-levodopa Diabetes mellitus- Continue glargine 20 units subcu twice daily Hold NPH 10 units subcu every morning Placed on Accu-Cheks with NovoLog coverage per SSI Seizure disorder- Continue Keppra, gabapentin and topiramate Hyperlipidemia- Continue atorvastatin Gout- Continue allopurinol Prostate cancer/LUTS- On finasteride Peripheral neuropathy- Continue gabapentin and topiramate Allergy symptoms- Continue fexofenadine History of Present Illness Chief Complaint: The patient presented to the emergency department with complaint of recent fall after losing his balance due to generalized leg weakness, but also notes having hit his head and right hip when he fell. Primary Care Provider: Josh Gaspar MD The patient is a 77-year-old male with a past medical history including mixed action and resting tremor, rotator cuff tendinitis, asthma, acute on chronic respiratory failure, CKD stage IIIa, depression, idiopathic polyneuropathy, left lower lobe pneumonia, prostate cancer with LUTS, parkinsonism, seizure-like activity, lower GI bleed, diabetes mellitus, CAD, aortic valve replacement and rheumatoid arthritis. Patient with similar symptoms today as in previous admissions, where he gets an acute worsening of generalized weakness, having fallen this time, and did report injury to his head and right hip, however, CTs of both areas were negative. Due to significance of his weakness, he is being admitted for PT OT consult and further assessment. Allergies Allergy/AdvReac Type Severity Reaction Status Date / Time Iodinated Contrast Media Allergy Severe Anaphylaxis Verified 05/21/22 21:44 shellfish derived Allergy Severe Anaphylaxis Verified 05/21/22 21:44 tamsulosin [From Flomax] Allergy Intermediate Itching Verified 05/21/22 21:44 Tetanus Vaccines and Toxoid Allergy Unknown Unknown Verified 05/21/22 21:44 Home Medications Medication Instructions Recorded Confirmed Type atorvastatin 40 mg tablet 40 mg PO HS 05/28/20 05/21/22 History fexofenadine 180 mg tablet 180 mg PO QAM 02/11/21 05/21/22 History (Karlee Allergy) allopurinol 100 mg tablet 100 mg PO DAILY 04/10/21 05/21/22 History levetiracetam 500 mg tablet See Rx Instructions .Route .COMPLEX 06/30/21 05/21/22 History (Keppra) cholecalciferol (vitamin D3) 50 4,000 unit PO HS 07/14/21 05/21/22 History mcg (2,000 unit) capsule (Vitamin D3) prednisone 10 mg tablet 10 mg PO QAM 07/14/21 05/21/22 History insulin glargine 100 unit/mL (3 20 unit subcut BID 07/26/21 05/21/22 History mL) subcutaneous pen (Lantus Solostar U-100 Insulin) acetaminophen 325 mg tablet 650 mg PO Q4H PRN pain #30 tabs 08/04/21 05/21/22 Rx aspirin 81 mg tablet,delayed 81 mg PO QAM #30 tabs 08/04/21 05/21/22 Rx release fluticasone fur. 100 mcg-umeclid 1 inh inhalation QAM #60 ea 09/06/21 05/21/22 Rx 62.5 mcg-vilant 25 mcg inhalat.powder (Trelegy Ellipta) albuterol sulfate 90 mcg/actuation 2 puff inhalation Q4H PRN 09/27/21 05/21/22 History aerosol inhaler (Ventolin HFA) Shortness Of Breath Or Wheezing polyethylene glycol 3350 17 17 g PO BID PRN Constipation 10/04/21 05/21/22 History gram/dose oral powder (Miralax) furosemide 20 mg tablet 20 mg PO QAM 11/24/21 05/21/22 History sennosides 8.6 mg tablet (Senokot) 17.2 mg PO QAM 11/24/21 05/21/22 History warfarin 5 mg tablet See Rx Instructions .Route .COMPLEX 11/24/21 05/21/22 History finasteride 5 mg tablet 5 mg PO QAM #30 tabs 12/12/21 05/21/22 Rx topiramate 100 mg tablet (Topamax) 100 mg PO BID 30 days #180 tabs 12/29/21 05/21/22 Rx insulin aspart U-100 100 unit/mL 0 sliding scale dose subcut ACHS 02/26/22 05/21/22 History (3 mL) subcutaneous pen (Novolog FlexPen U-100 Insulin aspart) carbidopa 25 mg-levodopa 100 mg 1 tab PO QID 05/21/22 05/21/22 History tablet diclofenac sodium 1 % topical gel 2 g topical DAILY 05/21/22 05/21/22 History gabapentin 300 mg capsule 300 mg PO DAILY 05/21/22 05/21/22 History insulin NPH isoph U-100 human 100 10 unit subcut QAM 05/21/22 05/21/22 History unit/mL subcutaneous suspension (Novolin N NPH U-100 Insulin isophane) Past Med/Surg History Medical History Anemia CAD (coronary artery disease) Cerebrovascular accident Chronic kidney disease, stage 3a Chronic respiratory failure with hypoxia Current use of filler leaf cutter long anticoagulation Depression Diabetes Elevated troponin Generalized weakness Hypoxia Non-ST elevation AK (NSTEMI) Non-sustained ventricular tachycardia PAF (paroxysmal atrial fibrillation) Rheumatoid arthritis Right lower lobe pneumonia Shortness of breath Stroke-like symptom 12/2019, w/ blurry vision and dysarthria. mild R sided wkness. attending outpatient physical therapy w/ good improvement in strength (5+/5 strength of all 4 extremities as of 05/28/20) Syncope Surgical History H/O hernia repair History of aortic valve replacement History of cholecystectomy History of fusion of cervical spine History of heart artery stent History of lung biopsy 2019 History of partial nephrectomy Family History Mother , age 87 of pulmonary issues Rheumatoid arthritis Father , in his mid 80s of a stroke Stroke Other Coronary heart disease Social History Smoking Status: Never smoker Second Hand Exposure: No; Hx Alcohol Use: No Hx Substance Use: No Preferred Language: Argentine Communication Ability: Effective Hearing Ability: Hard of Hearing Tire Tester Required: No Beliefs That Will Affect Care: None marital status: / Current Living Situation: Alone Current Living Situation Comment: lives alone in a one story house in [place] current occupational status: retired 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 The review of systems is otherwise negative other than for that already noted above, and at least 10 systems have been reviewed. Physical Exam Physical Exam: The patient is awake, alert and oriented 3, well developed and well nourished, normocephalic and atraumatic, lying in bed and in no acute distress. HEENT--PERRL, EOMI, mucous membranes and oropharynx dry. Neck--supple. No JVD. No bruits. Thyroid normal, trachea midline, no adenopathy. Heart--normal S1 and S2. No murmurs, rubs or gallops. Lungs--coarse breath sounds at the bases bilaterally, scattered wheezes. No respiratory distress, no accessory muscle use. Abdomen--normal bowel sounds and soft. Nontender. Nondistended, no hernias or masses, no organomegaly. Extremities--no cyanosis or clubbing. No edema. Dermatologic--normal skin turgor, normal color, no abnormal lymph nodes, no rash. Neurologic--cranial nerves II through XII grossly intact. Rheumatologic--limited exam Psychiatric--normal affect. Results & Data Results & Data ([facility]) Vital Signs (Past 12 Hours) Vital Signs Temp Pulse Pulse Resp BP BP Pulse Ox 05/22/22 00:00 85 17 129/67 95 05/21/22 23:43 94 H 18 106/77 96 05/21/22 22:00 93 H 19 131/81 93 05/21/22 21:12 36.7 C 114 H 22 131/73 94 05/21/22 21:12 36.8 C 114 H 22 131/73 95 O2 Del Method 05/22/22 00:00 05/21/22 23:43 05/21/22 22:00 05/21/22 21:12 Room Air 05/21/22 21:12 Room Air Laboratory Results Laboratory Results WBC 7.18 K/ul (4.8-10.8) 05/21/22 21:35 RBC 4.09 M/uL (4.63-6.08) L 05/21/22 21:35 Hgb 11.4 g/dl (14.0-18.0) L 05/21/22 21:35 Hct 35.9 % (40.1-51.0) L 05/21/22 21:35 MCV 87.8 fL (80.0-100.0) 05/21/22 21:35 MCH 27.9 pg (25.0-34.0) 05/21/22 21:35 MCHC 31.8 g/dL (32.0-36.0) L 05/21/22 21:35 RDW Std Deviation 51.3 fL (36.4-46.3) H 05/21/22 21:35 RDW Coeff of Lianne 16.0 % (11.5-14.5) H 05/21/22 21:35 Plt Count 173 K/uL (130-400) 05/21/22 21:35 MPV 9.4 fL (9.4-12.4) 05/21/22 21:35 Immature Gran % (Auto) 1.0 % 05/21/22 21:35 Neut % (Auto) 69.1 % 05/21/22 21:35 Lymph % (Auto) 24.5 % 05/21/22 21:35 Sharkey % (Auto) 3.6 % 05/21/22 21:35 Eos % (Auto) 1.4 % 05/21/22 21:35 Baso % (Auto) 0.4 % 05/21/22 21:35 Neut # (Auto) 4.96 K/uL (1.4-6.5) 05/21/22 21:35 Lymph # (Auto) 1.76 K/uL (1.2-3.4) 05/21/22 21:35 Sharkey # (Auto) 0.26 K/uL (0.24-0.82) 05/21/22 21:35 Eos # (Auto) 0.10 K/uL (0-0.50) 05/21/22 21:35 Baso # (Auto) 0.03 K/uL (0-0.2) 05/21/22 21:35 Immature Gran # (Auto) 0.07 K/uL (0.00-0.02) H 05/21/22 21:35 PT 22.1 Seconds (9.0-12.0) H 05/21/22 21:35 INR 2.2 (0.9-1.1) H 05/21/22 21:35 APTT 45.3 Seconds (21.0-31.0) H* 05/21/22 21:35 PTT Ratio 1.6 05/21/22 21:35 Sodium 138 mmol/L (136-145) 05/21/22 21:35 Potassium 3.8 mmol/L (3.5-5.1) 05/21/22 21:35 Chloride 108 mmol/L (98-107) H 05/21/22 21:35 Carbon Dioxide 22 mmol/L (21-32) 05/21/22 21:35 Anion Gap 8 (3-11) 05/21/22 21:35 BUN 35 mg/dl (6-23) H 05/21/22 21:35 Creatinine 1.15 mg/dl (0.6-1.4) 05/21/22 21:35 Est Cr Clr Drug Dosing 67.2 ml/min 05/21/22 21:35 Est GFR ( Amer) 70.7 ml/min 05/21/22 21:35 Est GFR (Non-Af Amer) 61.0 ml/min 05/21/22 21:35 BUN/Creatinine Ratio 30.4 (10-20) H 05/21/22 21:35 Glucose 250 mg/dl (70-99(Fasting)) H 05/21/22 21:35 Calcium 9.1 mg/dl (8.5-10.1) 05/21/22 21:35 Total Bilirubin 0.6 mg/dl (0.2-1.0) 05/21/22 21:35 AST 37 U/L (13-39) 05/21/22 21:35 ALT 13 U/L (7-52) 05/21/22 21:35 Alkaline Phosphatase 77 U/L (34-104) 05/21/22 21:35 Troponin I High Sens 12.5 pg/ml (0-20) 05/21/22 21:35 Total Protein 6.3 gm/dl (6.0-8.3) 05/21/22 21:35 Albumin 3.2 gm/dl (3.4-5.0) L 05/21/22 21:35 Globulin 3.1 gm/dl (2.5-4.0) 05/21/22 21:35 Albumin/Globulin Ratio 1.0 (0.9-2) 05/21/22 21:35 Urine Color Dark Yellow 05/22/22 Unknown Urine Appearance Clear (Clear) 05/22/22 Unknown Urine pH 5.5 (4.5-7.5) 05/22/22 Unknown Ur Specific [place] 1.022 (1.000-1.030) 05/22/22 Unknown Urine Protein Trace (Negative) H 05/22/22 Unknown Urine Glucose (UA) Negative (Negative) 05/22/22 Unknown Urine Ketones Trace (Negative) H 05/22/22 Unknown Urine Blood Negative (Negative) 05/22/22 Unknown Urine Nitrite Negative (Negative) 05/22/22 Unknown Urine Bilirubin Negative (Negative) 05/22/22 Unknown Urine Urobilinogen Negative (Negative) 05/22/22 Unknown Ur Leukocyte Esterase Negative (Negative) 05/22/22 Unknown Urine WBC (Auto) 0 /hpf (0-5) 05/22/22 Unknown Urine RBC (Auto) 0-4 /hpf (0-4) 05/22/22 Unknown U Hyaline Cast (Auto) 1-5 /lpf (0-5) 05/22/22 Unknown U Epithel Cells (Auto) 0-5 /lpf (0-5) 05/22/22 Unknown Urine Bacteria (Auto) Negative (Negative) 05/22/22 Unknown Adenovirus (PCR) Not Detected (NotDetected) 05/21/22 Unknown B. pertussis DNA (PCR) Not Detected (NotDetected) 05/21/22 Unknown B.parapertussis DNA PCR Not Detected (NotDetected) 05/21/22 Unknown C. pneumoniae DNA (PCR) Not Detected (NotDetected) 05/21/22 Unknown Coronavirus OC43 (PCR) Not Detected (NotDetected) 05/21/22 Unknown Coronavirus HKU1 (PCR) Not Detected (NotDetected) 05/21/22 Unknown Coronavirus 229E (PCR) Not Detected (NotDetected) 05/21/22 Unknown SARS-CoV-2 (PCR) Not Detected (NotDetected) 05/21/22 Unknown Coronavirus NL63 (PCR) Not Detected (NotDetected) 05/21/22 Unknown Human Metapneumovir PCR Not Detected (NotDetected) 05/21/22 Unknown Influenza Type A (PCR) Not Detected (NotDetected) 05/21/22 Unknown Influenza Type B (PCR) Not Detected (NotDetected) 05/21/22 Unknown M. pneumoniae (PCR) Not Detected (NotDetected) 05/21/22 Unknown Parainfluenza 1 (PCR) Not Detected (NotDetected) 05/21/22 Unknown Parainfluenza 2 (PCR) Not Detected (NotDetected) 05/21/22 Unknown Parainfluenza 3 (PCR) Not Detected (NotDetected) 05/21/22 Unknown Parainfluenza 4 (PCR) Not Detected (NotDetected) 05/21/22 Unknown RSV (PCR) Not Detected (NotDetected) 05/21/22 Unknown Entero/Rhino (PCR) DETECTED (NotDetected) A* 05/21/22 Unknown Code Status & VTE Plan Code Status Full code PG Care Time/CCT Total # of Minutes Spent Total Time Spent with Patient: Total time spent is greater than 50% in coordination of care (as documented) at patient's floor/unit and/or counseling patient: Coding Level of Care Code 12000 INT INP/OBS CARE 75MIN Diagnoses Generalized weakness R53.1 Idiopathic polyneuropathy G60.9 Depression F32.A Chronic kidney disease, stage 3a N18.3 Asthma J45.909 Acute bronchitis due to Rhinovirus J20.6 Fall W19.XXXA Ambulatory dysfunction R26.2 Seizure-like activity R56.9 Parkinsonism G20 Prostate cancer C61 Diabetes E11.42; Z79.4 Diabetes mellitus type: type 2 Diabetes mellitus filler leaf cutter long insulin use: with chcf use Diabetes mellitus complication status: with neurologic complications Diabetes mellitus complication detail: with polyneuropathy CAD (coronary artery disease) I25.10 Coronary Disease-Associated Artery/Lesion type: [place] artery [place] vs. transplanted heart: [place] heart Associated angina: without angina Aortic valve replaced Z95.2 Rheumatoid arthritis M06.9 Rheumatoid arthritis location: unspecified site Rheumatoid factor presence: unspecified presence (1) Diabetes Diabetes mellitus type: type 2 Diabetes mellitus filler leaf cutter long insulin use: with filler leaf cutter long use Diabetes mellitus complication status: with neurologic complications Diabetes mellitus complication detail: with polyneuropathy Qualified Code(s): E11.42 - Type 2 diabetes mellitus with diabetic polyneuropathy; Z79.4 - skilled nursing (current) use of insulin (2) CAD (coronary artery disease) Coronary Disease-Associated Artery/Lesion type: [place] artery [place] vs. transplanted heart: [place] heart Associated angina: without angina Qualified Code(s): I25.10 - Atherosclerotic heart disease of [place] coronary artery without angina pectoris (3) Rheumatoid arthritis Rheumatoid arthritis location: unspecified site Rheumatoid factor presence: unspecified presence Qualified Code(s): M06.9 - Rheumatoid arthritis, unspecified
[2022-05-22] MEDS ORDERED: GLUCOSE 10 TAB/TUBE PO PRN (01:48)
[2022-05-22] MEDS ORDERED: GLUCOSE 40% GEL 15 GM TUBE PO PRN (01:48)
[2022-05-22] MEDS ORDERED: DEXTROSE 50% 50 ML SYRINGE IV PRN (01:48)
[2022-05-22] MEDS ORDERED: GLUCAGON FOR INJ 1 MG VIAL SQ PRN (01:48)
[2022-05-22] MEDS ORDERED: ALBUTEROL HFA 8 GM INHALER INH PRN (03:23)
[2022-05-22] MEDS ORDERED: ACETAMINOPHEN 325 MG TAB PO PRN (03:23)
[2022-05-22] MEDS ORDERED: ONDANSETRON INJ 2 MG/ML 2 ML VIAL IV PRN (03:23)
[2022-05-22] MEDS: methylPREDNISolone 20 MG in SYRINGE 0 ML IV SCH ×3 (04:45→20:18)
[2022-05-22] MEDS ORDERED: INSULIN ASPART PER UNIT SC SCH ×3 (06:00→16:30)
[2022-05-22] MEDS: BUDESONIDE 0.5 MG/2 ML VIAL (PULMICORT) NEB SCH ×2 (07:16→19:36)
[2022-05-22] MEDS: ALBUT/IPRATROP 3MG/0.5MG NEB 3 ML VIAL NEB SCH ×8 (07:16→19:36)
[2022-05-22 07:59] LABS: Basophils # (auto) 0.02 K/uL (0-0.2); Basophils % (auto) 0.3 %; Eosinophils # (auto) 0.09 K/uL (0-0.50); Eosinophils % (auto) 1.5 %; Hematocrit (blood only) 34.4 % (40.1-51.0); Immature Granulocytes # (auto) 0.07 K/uL (0.00-0.02); Immature Granulocytes % (auto) 1.2 %; Lymphocytes # (auto) 1.09 K/uL (1.2-3.4); Mean Corpuscular Hemoglobin 27.5 pg (25.0-34.0); Mean Platelet Volume 9.8 fL (9.4-12.4); Monocytes # (auto) 0.16 K/uL (0.24-0.82); Monocytes % (auto) 2.6 %; Neutrophils # (auto) 4.64 K/uL (1.4-6.5); Neutrophils % (auto) 76.4 %; Platelet Count 169 K/uL (130-400); RDW Coefficient of Variation 15.9 % (11.5-14.5); RDW Standard Deviation 50.4 fL (36.4-46.3); White Blood Count 6.07 K/ul (4.8-10.8)
[2022-05-22 08:04] LABS: INR 2.1 (0.9-1.1); Prothrombin Time 21.8 Seconds (9.0-12.0)
--- NOTE | 2022-05-22 08:07 | CT Scan Report ---
CT head/brain wo con CLINICAL HISTORY: fall Technique: Contiguous axial CT images of the head were acquired from the base of the skull to the samantha silvio without intravenous contrast administration. Images were viewed in brain, subdural [facility]. Automated dose lowering techniques and/or adjustment according to patient size were utilized for this exam. Comparison: None available at the time of this dictation. Findings: The ventricles, basal cisterns, and cerebral sulci are normal. There is no acute intracranial hemorrh age or evidence of acute territorial infarction. Neither mass effect, shift of the midline structures , nor abnormal extra-axial fluid collections are shown. There is opacification of a few right ethmoid air cells. The orbits appear normal. There are no acut e fractures of the calvaria or scalp swelling. Impression: No acute intracranial hemorrhage, no evidence of acute territorial infarction or other acute intracra nial disease process. ACT 112: Negative or not required by law. Electronically signed by: Russell Sifuentes M.D. 05/22/2022 8:05 AM
--- NOTE | 2022-05-22 08:25 | XRay Report ---
XR chest 1V portable HISTORY: fall, cough COMPARISON: Chest 05/04/2022. FINDINGS: No pneumothorax. No pleural effusion. The heart remains mildly enlarged. There are postoper ative changes. Bibasilar linear densities are again noted. This has progressed within the right lung base. Suture material again noted within the left lung base. Cervical spinal fusion hardware. IMPRESSION: Bibasilar linear densities which have progressed within the right lung base. This could represent ate lectasis or a developing pneumonia. ACT 112: Negative or not required by law. Electronically signed by: Jc Che M.D. 05/22/2022 8:23 AM
[2022-05-22] MEDS ORDERED: Nursing to Pharmacy Communication SCH (08:45)
[2022-05-22] MEDS ORDERED: NON-FORMULARY MEDICATION (Fluticasone-Umeclidin-Vilanter [Trelegy Ellipta] 100-62.5-25 mcg INH SCH (09:00)
[2022-05-22] MEDS ORDERED: LANTUS PER UNIT CHARGE SQ SCH ×2 (09:00→21:00)
[2022-05-22] MEDS: CARBIDOPA/LEVODOPA 25/100MG TAB PO SCH ×4 (09:01→20:20)
[2022-05-22] MEDS: allopurinoL 100 MG TAB PO SCH (09:01)
[2022-05-22] MEDS: ASPIRIN 81 MG ECTAB PO SCH (09:01)
[2022-05-22] MEDS: FEXOFENADINE HCL 180 MG TAB PO SCH (09:02)
[2022-05-22] MEDS: SENNA 8.6 MG TAB PO SCH (09:02)
[2022-05-22] MEDS: FINASTERIDE 5 MG TAB PO SCH (09:02)
[2022-05-22] MEDS: guaiFENesin 600 MG TABCR PO SCH ×2 (09:02→20:20)
[2022-05-22] MEDS: GABAPENTIN 300 MG CAP PO SCH (09:02)
[2022-05-22] MEDS: TOPIRAMATE 100 MG TAB PO SCH ×2 (09:03→20:20)
[2022-05-22] MEDS: UMECLIDINIUM/VILANTEROL 62.5/25MCG 7 PUFFS/INHALER INH SCH (09:03)
[2022-05-22] MEDS: FLUTICASONE FUROATE 100MCG 14 PUFFS/INHALER INH SCH (09:03)
[2022-05-22] MEDS: levETIRAcetam 500 MG TAB PO SCH (09:03)
[2022-05-22] MEDS: ACETAMINOPHEN 325 MG TAB PO PRN (09:09)
--- NOTE | 2022-05-22 09:13 | CT Scan Report ---
CT hip RT wo con CLINICAL HISTORY: fall TECHNIQUE: Multidetector row helical CT of the right hip was performed without intravenous contrast. Coronal and sagittal reformations were obtained. Automated dose lowering techniques and/or adjustment according to patient size were utilized for this examination. CT DOSE: 1387.72 mGy.cm Comparison: None available at the time of this dictation. FINDINGS: The osseous structures are without fracture or dislocation. Degenerative changes are seen. No joint e ffusion is seen. Vascular calcifications are seen. IMPRESSION: Degenerative changes without evidence of acute fracture. ACT 112: Negative or not required by law. Electronically signed by: Russell Sifuentes M.D. 05/22/2022 9:12 AM
[2022-05-22] MEDS: POLYETHYLENE (MIRALAX) 17 GM PACK PO PRN (09:37)
[2022-05-22] MEDS: AZITHROMYCIN 500 MG in DEXTROSE 5% 250 ML IV SCH (09:39)
[2022-05-22 09:53] LABS: Albumin Level 3.1 gm/dl (3.4-5.0); BUN Creatinine Ratio 26.6 (10-20); Calcium 8.6 mg/dl (8.5-10.1); Creatinine Clr Calc Pharmacy 69.4 ml/min; Est GFR (African American) 75.5 ml/min; Est GFR (Non-African American) 65.1 ml/min; Phosphorus 2.4 mg/dl (2.5-4.9); Potassium 3.9 mmol/L (3.5-5.1)
--- NOTE | 2022-05-22 09:56 | Electrocardiogram Report ---
Test Reason : Blood Pressure : / mmHG Vent. Rate : 095 BPM Atrial Rate : 095 BPM P-R Int : 158 ms QRS Dur : 088 ms QT Int : 370 ms P-R-T Axes : 028 017 082 degrees QTc Int : 464 ms Sinus rhythm with Premature atrial complexes Otherwise normal ECG When compared with ECG of 04-MAY-2022 15:42, No significant change was found Confirmed by Cody Soto ([id number]) on 05/22/2022 9:56:14 AM Referred By: REFERRED SELF Confirmed By:Wyatt Soto
[2022-05-22] MEDS ORDERED: LANTUS PER UNIT CHARGE SQ ONE ×2 (11:44→20:30)
[2022-05-22] MEDS ORDERED: PHARMACY GLYCEMIC MGMT CONSULT PRN (13:05)
[2022-05-22] MEDS ORDERED: HHS GOAL RANGE 250-350 mg/dl ONE (13:05)
[2022-05-22] MEDS ORDERED: STAT IV Infusion **Titration per Protocol STA (13:05)
[2022-05-22] MEDS ORDERED: INSULIN REGULAR 250 UNITS in SODIUM CHLORIDE 0.9% 247.5 ML IV SCH ×2 (13:15→13:30)
[2022-05-22] MEDS ORDERED: INSULIN PROTOCOL GOAL RANGE ONE (13:28)
[2022-05-22] MEDS ORDERED: SEVERE STRESS LEVEL ONE (13:28)
[2022-05-22] MEDS ORDERED: STAT IV STA (13:28)
[2022-05-22] MEDS ORDERED: INSULIN HUMAN REGULAR IV BOLUS 4 UNITS in SYRINGE 0 ML IV ONE (13:45)
--- NOTE | 2022-05-22 14:38 | Pharmacy Report ---
Pharmacy Glycemic Short Note 2 - Date of Service May 22, 2022 - Glycemic Short BSG Results (Last 24 hours): 05/21/22 05/22/22 05/22/22 21:35 06:48 07:34 Glucose 250 H 220 H POC Glucose 240 H 05/22/22 05/22/22 05/22/22 11:38 11:40 12:59 Glucose POC Glucose 416 H* 450 H* 436 H* OUTPATIENT ANTIDIABETIC REGIMEN: * Lantus 20 units SC BID * NPH 10 units SC daily (also takes prednisone 10 mg PO daily) * Novolog SSI HbA1c ordered for 05/23/22 ASSESSMENT: * DB is a 77 year old male admitted overnight following recent fall (patient reports having had loss of balance/generalized leg weakness) * Patient started on methylprednisolone 20 mg IV q8h for acute bronchitis possibly secondary to rhinovirus/bacterial COPD exac. * Patient's BSG was 240 mg/dL this morning, received 20 units of Lantus and 3 units of Novolog * Pharmacy consulted for glycemic management at lunchtime due to multiple BSGs > 400 mg/dL * Utilizing what will likely be a short-term insulin infusion, additional 5 units of Lantus ordered by provider prior to consult PLAN FOR INPATIENT GLYCEMIC CONTROL: * IV insulin infusion (BSG goal range of 110-180 mg/dL) * Basal insulin * Lantus 25 units SC given today * Reassess in AM * Bolus insulin * Fixed carb ratio of 4 while on insulin infusion, then likely appropriate to use the following regimen once transitioned to SC basal/bolus * NovoLog per scale ACHS or Q6hrs while NPO * Goal Range: Low 110 mg/dL - High 140 mg/dL * Correction Factor: 15 mg/dL/unit * Nutritional / Prandial insulin per carb ratio of 1 unit per 4 grams CHO consumed
[2022-05-22] MEDS: WARFARIN SOD 7.5 MG TAB PO SCH (16:42)
--- NOTE | 2022-05-22 18:27 | Electrocardiogram Report ---
Test Reason : Blood Pressure : / mmHG Vent. Rate : 109 BPM Atrial Rate : 187 BPM P-R Int : 000 ms QRS Dur : 082 ms QT Int : 350 ms P-R-T Axes : 000 012 096 degrees QTc Int : 471 ms Atrial fibrillation with rapid ventricular response Abnormal ECG When compared with ECG of 21-MAY-2022 21:57, (unconfirmed) Atrial fibrillation has replaced Sinus rhythm Confirmed by Cody Soto ([id number]) on 05/22/2022 6:27:01 PM Referred By: REFERRED SELF Confirmed By:Wyatt Soto
--- NOTE | 2022-05-22 18:49 | History & Physical Bridge Note ---
Date of Service May 22, 2022 History & Physical Bridge Note I have examined the patient, reviewed the History & Physical and in the interval since the performance of the History & Physical I have noted the following changes of clinical significance: Pt had severe hyperglycemia and I started him on an insulin gtt with subsequent improvement. He reports feeling better now than previous but generally weak. +Cough and nasal congestion ongoing for 1-2 weeks. No fevers. Also c/o urinary retention and voiding issues at home since 1-2 weeks ago Vitals reviewed Tele with Afib in 140s x 6 min, then converted to NSR rates 70s. RRR no mgr Lungs wihth +cough, +wheexzing bilat, right lower lung field with rhonchi Abd +BS soft NT ND, Rojas in place Ext trace pitting edema 77 yo male here with Rhino/Enterovirus, viral PNA, fall, gen weakness, PAF with RVR. -continue steroids, nebs, azithro -continue Rojas, consider Urology consult. Is allergic to Flomax. Having right flank pain ongoing. Normal renal function, could be MSK in nature? -continue insulin gtt and wean off as able to , increased basal and bolus insulin while on steroids
[2022-05-22] MEDS: INSULIN ASPART PER UNIT SC SCH ×2 (20:18→23:42)
[2022-05-22] MEDS: CHOLECALCIFEROL 1,000 UNITS 25 MCG TAB PO SCH (20:19)
[2022-05-22] MEDS: ATORVASTATIN 40 MG TAB PO SCH (20:19)
[2022-05-22] MEDS: levETIRAcetam 250 MG TAB PO SCH (20:20)
[2022-05-22] MEDS: CARBOHYDRATES FOR HYPOGLYCEMIA PO PRN ×2 (23:36→23:48)
[2022-05-23] MEDS ORDERED: ALBUT/IPRATROP 3MG/0.5MG NEB 3 ML VIAL NEB PRN (00:14)
[2022-05-23] MEDS: methylPREDNISolone 20 MG in SYRINGE 0 ML IV SCH ×3 (02:59→20:53)
[2022-05-23] MEDS: ACETAMINOPHEN 325 MG TAB PO PRN ×2 (02:59→08:28)
[2022-05-23] MEDS: INSULIN ASPART PER UNIT SC SCH ×6 (02:59→21:01)
[2022-05-23] MEDS: ALBUT/IPRATROP 3MG/0.5MG NEB 3 ML VIAL NEB SCH ×2 (07:09→20:01)
[2022-05-23] MEDS: BUDESONIDE 0.5 MG/2 ML VIAL (PULMICORT) NEB SCH (07:09)
--- NOTE | 2022-05-23 07:46 | Pharmacy Report ---
Pharmacy Glycemic Short Note 2 - Date of Service May 23, 2022 - Glycemic Short BSG Results (Last 24 hours): 05/22/22 05/22/22 05/22/22 07:34 11:38 11:40 Glucose 220 H POC Glucose 416 H* 450 H* 05/22/22 05/22/22 05/22/22 12:59 14:54 15:57 Glucose POC Glucose 436 H* 273 H 204 H 05/22/22 05/22/22 05/22/22 17:04 18:02 20:08 Glucose POC Glucose 122 H 104 H 209 H 05/22/22 05/22/22 05/23/22 23:35 23:48 00:04 Glucose POC Glucose 57 L* 62 L* 59 L* 05/23/22 05/23/22 05/23/22 00:35 00:54 02:57 Glucose POC Glucose 58 L* 123 H 182 H 05/23/22 07:38 Glucose POC Glucose 253 H OUTPATIENT ANTIDIABETIC REGIMEN: * Lantus 20 units SC BID * NPH 10 units SC daily (also takes prednisone 10 mg PO daily) * Novolog SSI HbA1c ordered for 05/23/22 ASSESSMENT: 05/23/22 * Patient received 75 units of SQ insulin yesterday (45 units basal) + 4 hours of insulin drip at ~3.9units/hr * Patient with hypoglycemia late last night, pt refused hypoglycemia treatment protocol, hence sustained, likely due to excess basal, will continue home dose of basal at this time, even while on steroids to prevent further hypoglycemia. * Tighten CF/CR at this time while still on Solu-medrol 20mg IV Q8H 05/22/22 * DB is a 77 year old male admitted overnight following recent fall (patient reports having had loss of balance/generalized leg weakness) * Patient started on methylprednisolone 20 mg IV q8h for acute bronchitis possibly secondary to rhinovirus/bacterial COPD exac. * Patient's BSG was 240 mg/dL this morning, received 20 units of Lantus and 3 units of Novolog * Pharmacy consulted for glycemic management at lunchtime due to multiple BSGs > 400 mg/dL * Utilizing what will likely be a short-term insulin infusion, additional 5 units of Lantus ordered by provider prior to consult PLAN FOR INPATIENT GLYCEMIC CONTROL: * IV insulin infusion - DC at 1800 yesterday * Basal insulin * Lantus 20 units SQ BID * Bolus insulin * NovoLog per scale ACHS or Q6hrs while NPO * Goal Range: Low 110 mg/dL - High 140 mg/dL * Correction Factor: 12 mg/dL/unit * Nutritional / Prandial insulin per carb ratio of 1 unit per 3 grams CHO consumed
[2022-05-23 08:00] LABS: Basophils # (auto) 0.01 K/uL (0-0.2); Basophils % (auto) 0.1 %; Hematocrit (blood only) 32.9 % (40.1-51.0); Hemoglobin 10.8 g/dl (14.0-18.0); Immature Granulocytes # (auto) 0.08 K/uL (0.00-0.02); Immature Granulocytes % (auto) 0.9 %; Lymphocytes # (auto) 0.84 K/uL (1.2-3.4); Lymphocytes % (auto) 9.5 %; Mean Corpuscular Hemoglobin 27.7 pg (25.0-34.0); Mean Corpuscular Hgb Conc 32.8 g/dL (32.0-36.0); Mean Corpuscular Volume 84.4 fL (80.0-100.0); Mean Platelet Volume 9.9 fL (9.4-12.4); Monocytes # (auto) 0.22 K/uL (0.24-0.82); Monocytes % (auto) 2.5 %; Neutrophils # (auto) 7.67 K/uL (1.4-6.5); Platelet Count 187 K/uL (130-400); RDW Coefficient of Variation 15.5 % (11.5-14.5); RDW Standard Deviation 47.5 fL (36.4-46.3); White Blood Count 8.82 K/ul (4.8-10.8)
[2022-05-23 08:10] LABS: INR 2.5 (0.9-1.1); Partial Thromboplastin Ratio 1.6; Partial Thromboplastin Time 43.2 Seconds (21.0-31.0); Prothrombin Time 25.6 Seconds (9.0-12.0)
[2022-05-23] MEDS: LANTUS PER UNIT CHARGE SQ SCH ×2 (08:26→20:51)
[2022-05-23] MEDS: FINASTERIDE 5 MG TAB PO SCH (08:28)
[2022-05-23] MEDS: CARBIDOPA/LEVODOPA 25/100MG TAB PO SCH ×4 (08:28→21:00)
[2022-05-23] MEDS: guaiFENesin 600 MG TABCR PO SCH (08:28)
[2022-05-23] MEDS: levETIRAcetam 500 MG TAB PO SCH (08:29)
[2022-05-23] MEDS: ASPIRIN 81 MG ECTAB PO SCH (08:29)
[2022-05-23] MEDS: allopurinoL 100 MG TAB PO SCH (08:29)
[2022-05-23] MEDS: TOPIRAMATE 100 MG TAB PO SCH ×2 (08:29→21:00)
[2022-05-23] MEDS: GABAPENTIN 300 MG CAP PO SCH (08:29)
[2022-05-23] MEDS: FLUTICASONE FUROATE 100MCG 14 PUFFS/INHALER INH SCH (08:30)
[2022-05-23] MEDS: FEXOFENADINE HCL 180 MG TAB PO SCH (08:30)
[2022-05-23] MEDS: UMECLIDINIUM/VILANTEROL 62.5/25MCG 7 PUFFS/INHALER INH SCH (08:30)
[2022-05-23] MEDS: SENNA 8.6 MG TAB PO SCH (08:30)
[2022-05-23] MEDS: AZITHROMYCIN 500 MG in DEXTROSE 5% 250 ML IV SCH (08:32)
[2022-05-23 08:35] LABS: Calcium 8.9 mg/dl (8.5-10.1); Magnesium 1.7 mg/dl (1.7-2.4); Potassium 4.1 mmol/L (3.5-5.1)
[2022-05-23 08:41] LABS: BUN Creatinine Ratio 33.6 (10-20); Creatinine Clr Calc Pharmacy 65.5 ml/min; Est GFR (Non-African American) 60.4 ml/min
[2022-05-23 09:37] LABS: Estimated Average Glucose 163 mg/dl; Hemoglobin A1C 7.3 % (4.5-5.6)
[2022-05-23] MEDS: MAGNESIUM SULFATE / D5W 1 GM/100 ML BAG IV SCH ×2 (11:35→12:40)
[2022-05-23] MEDS ORDERED: INSULIN ASPART PER UNIT SC ONE (14:30)
[2022-05-23] MEDS ORDERED: WARFARIN SOD 5 MG TAB PO SCH (16:00)
--- NOTE | 2022-05-23 18:12 | Hospitalist Progress Note ---
Date of Service May 23, 2022 Assessment & Plan (1) Acute bronchitis due to Rhinovirus: Plan: Acute bronchitis due to rhinovirus/secondary bacterial/COPD exacerbation- improving but with persistent cough and wheezing. Not hypoxic CXR with possible PNA RLL -continue Methylprednisolone 20 mg IV every 8 hours through tonight then convert to po prednisone 40mg daily for tomorrow -dc Pulmicort Respules 0.5 mg inhaled twice daily asis on maintenance ICS inhaler -make Duonebs tid rather than prn -add on guaifenesin DM prn for cough -supplemental O2 as needed -finish out 3 day course of Azithromycin 500 mg IV daily-last dose 05/24 -Continue usual maintenance inhalers (2) Generalized weakness: Plan: Generalized weakness/status post fall/chronic ambulatory dysfunction- CT of head and CT of hip negative for acute injury Likely acute worsening of generalized weakness and debilitation due to bronchitis associated with rhinovirus/enterovirus Treat bronchitis, and then get PT/OT assessment-pending but may need rehab (3) PAF (paroxysmal atrial fibrillation): Plan: had intermittent rapid afib shortly after admission with rates 160s now resolved continue warfarin and follow INR not on AV elysia amor (4) Chronic kidney disease, stage 3a: 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 and at baseline -Avoid nephrotoxins -renally dose meds when appropriate -follow BMP (5) Diabetes: Plan: with severe hyperglycemia here on steroids, requiring insulin gtt, now off and pharmacy managing continue basal and bolus insulin HgbA1C 7.3% (6) Asthma: Plan: as above (7) Seizure-like activity: Plan: continue home meds keppra, gabapentin and topiramate no acute issues (8) Parkinsonism: Plan: continue Sinemet (9) CAD (coronary artery disease): Plan: Continue atorvastatin, ASA no acute issues (10) Depression: Plan: with anxiety continue topamax (11) Aortic valve replaced: Plan: noted (12) Idiopathic polyneuropathy: Plan: contoinue gabapentin (13) Rheumatoid arthritis: Plan: not on meds for this (14) Anemia: Plan: chronic and stable in the 10s likely from CKD? Was iron deficient last year check iron studies in AM B12 and folate normal 1 year ago assess as outpt to see if needs GI workup (15) Gout: Plan: no acute issues Continue allopurinol (16) Prostate cancer: Plan: continue finasteride Wetzel removed today and passed TOV Plan DVT proph-coumadin Dispo-continued stay med tele, PT/OT evals pending, may need rehab Admission and Anticipated Discharge Date Admission Date: May 23, 2022 Subjective Pt reports persistent cough and requests the nebs be scheduled again rather than prn. Anxious in general. Is moving bowels, eating. Had Wetzel removed and voiding on own Tele with NSR, rates 70-80s Review of Systems Review of Systems: All systems reviewed & are unremarkable except as noted in HPI & below Physical Exam Constitutional: WD/WN, vitals as above Eyes: + anicteric sclerae Neck: trachea midline, no thyromegaly Respiratory: normal respiratory effort and + cough Auscultation: + rhonchi (right base) and + wheezes (bilat); no crackles Cardiovascular: RRR, no murmur, no edema Chest (Breasts): Chest: normal inspection of chest Gastrointestinal (Abdomen): normal bowel sounds, soft, nontender, no hepatosplenomegaly Musculoskeletal: Extremities: extremities normal to inspection; no cyanosis and no clubbing Skin: no rashes, warm and dry Neurologic: moves all extremities and awake; no focal motor deficits Results & Data Results & Data ([facility]) Vital Signs (Past 12 Hours) Vital Signs Temp Pulse Pulse Resp BP Pulse Ox O2 Del Method 05/23/22 10:00 Room Air 05/23/22 15:30 64 05/23/22 14:53 66 18 95 Room Air 05/23/22 15:50 36.7 C 89 20 147/82 H 94 Room Air 05/23/22 11:17 36.7 C 72 12 107/68 92 Room Air 05/23/22 08:23 36.5 C 92 H 14 142/53 H 92 Room Air 05/23/22 07:00 80 05/23/22 07:09 88 16 95 Room Air Laboratory Results 05/23/22 05/23/22 05/23/22 Range/Units 16:33 14:45 11:42 WBC (4.8-10.8) K/ul RBC (4.63-6.08) M/uL Hgb (14.0-18.0) g/dl Hct (40.1-51.0) % MCV (80.0-100.0) fL MCH (25.0-34.0) pg MCHC (32.0-36.0) g/dL RDW Std Deviation (36.4-46.3) fL RDW Coeff of Lianne (11.5-14.5) % Plt Count (130-400) K/uL MPV (9.4-12.4) fL Immature Gran % (Auto) % Neut % (Auto) % Lymph % (Auto) % [place] % (Auto) % Eos % (Auto) % Baso % (Auto) % Neut # (Auto) (1.4-6.5) K/uL Lymph # (Auto) (1.2-3.4) K/uL [place] # (Auto) (0.24-0.82) K/uL Eos # (Auto) (0-0.50) K/uL Baso # (Auto) (0-0.2) K/uL Immature Gran # (Auto) (0.00-0.02) K/uL PT (9.0-12.0) Seconds INR (0.9-1.1) APTT (21.0-31.0) Seconds PTT Ratio Sodium (136-145) mmol/L Potassium (3.5-5.1) mmol/L Chloride (98-107) mmol/L Carbon Dioxide (21-32) mmol/L Anion Gap (3-11) BUN (6-23) mg/dl Creatinine (0.6-1.4) mg/dl Est Cr Clr Drug Dosing ml/min Est GFR ( Amer) ml/min Est GFR (Non-Af Amer) ml/min BUN/Creatinine Ratio (10-20) Glucose (70-99(Fasting)) mg/dl POC Glucose 181 H 229 H 376 H* (70-99) mg/dl Estimat Average Glucose mg/dl Hemoglobin A1c (4.5-5.6) % Calcium (8.5-10.1) mg/dl Phosphorus (2.5-4.9) mg/dl Magnesium (1.7-2.4) mg/dl Albumin (3.4-5.0) gm/dl 05/23/22 05/23/22 05/23/22 Range/Units 11:35 07:38 07:29 WBC (4.8-10.8) K/ul RBC (4.63-6.08) M/uL Hgb (14.0-18.0) g/dl Hct (40.1-51.0) % MCV (80.0-100.0) fL MCH (25.0-34.0) pg MCHC (32.0-36.0) g/dL RDW Std Deviation (36.4-46.3) fL RDW Coeff of Lianne (11.5-14.5) % Plt Count (130-400) K/uL MPV (9.4-12.4) fL Immature Gran % (Auto) % Neut % (Auto) % Lymph % (Auto) % [place] % (Auto) % Eos % (Auto) % Baso % (Auto) % Neut # (Auto) (1.4-6.5) K/uL Lymph # (Auto) (1.2-3.4) K/uL [place] # (Auto) (0.24-0.82) K/uL Eos # (Auto) (0-0.50) K/uL Baso # (Auto) (0-0.2) K/uL Immature Gran # (Auto) (0.00-0.02) K/uL PT (9.0-12.0) Seconds INR (0.9-1.1) APTT (21.0-31.0) Seconds PTT Ratio Sodium 134 L (136-145) mmol/L Potassium 4.1 (3.5-5.1) mmol/L Chloride 106 (98-107) mmol/L Carbon Dioxide 20 L (21-32) mmol/L Anion Gap 8 (3-11) BUN 39 H (6-23) mg/dl Creatinine 1.16 (0.6-1.4) mg/dl Est Cr Clr Drug Dosing 65.5 ml/min Est GFR ( Amer) 70.0 ml/min Est GFR (Non-Af Amer) 60.4 ml/min BUN/Creatinine Ratio 33.6 H (10-20) Glucose 252 H (70-99(Fasting)) mg/dl POC Glucose 379 H* 253 H (70-99) mg/dl Estimat Average Glucose mg/dl Hemoglobin A1c (4.5-5.6) % Calcium 8.9 (8.5-10.1) mg/dl Phosphorus 3.0 (2.5-4.9) mg/dl Magnesium 1.7 (1.7-2.4) mg/dl Albumin 3.0 L (3.4-5.0) gm/dl 05/23/22 05/23/22 05/23/22 Range/Units 07:29 07:29 07:29 WBC 8.82 (4.8-10.8) K/ul RBC 3.90 L (4.63-6.08) M/uL Hgb 10.8 L (14.0-18.0) g/dl Hct 32.9 L (40.1-51.0) % MCV 84.4 (80.0-100.0) fL MCH 27.7 (25.0-34.0) pg MCHC 32.8 (32.0-36.0) g/dL RDW Std Deviation 47.5 H (36.4-46.3) fL RDW Coeff of Lianne 15.5 H (11.5-14.5) % Plt Count 187 (130-400) K/uL MPV 9.9 (9.4-12.4) fL Immature Gran % (Auto) 0.9 % Neut % (Auto) 87.0 % Lymph % (Auto) 9.5 % [place] % (Auto) 2.5 % Eos % (Auto) 0.0 % Baso % (Auto) 0.1 % Neut # (Auto) 7.67 H (1.4-6.5) K/uL Lymph # (Auto) 0.84 L (1.2-3.4) K/uL [place] # (Auto) 0.22 L (0.24-0.82) K/uL Eos # (Auto) 0.00 (0-0.50) K/uL Baso # (Auto) 0.01 (0-0.2) K/uL Immature Gran # (Auto) 0.08 H (0.00-0.02) K/uL PT 25.6 H (9.0-12.0) Seconds INR 2.5 H (0.9-1.1) APTT 43.2 H (21.0-31.0) Seconds PTT Ratio 1.6 Sodium (136-145) mmol/L Potassium (3.5-5.1) mmol/L Chloride (98-107) mmol/L Carbon Dioxide (21-32) mmol/L Anion Gap (3-11) BUN (6-23) mg/dl Creatinine (0.6-1.4) mg/dl Est Cr Clr Drug Dosing ml/min Est GFR ( Amer) ml/min Est GFR (Non-Af Amer) ml/min BUN/Creatinine Ratio (10-20) Glucose (70-99(Fasting)) mg/dl POC Glucose (70-99) mg/dl Estimat Average Glucose 163 mg/dl Hemoglobin A1c 7.3 H (4.5-5.6) % Calcium (8.5-10.1) mg/dl Phosphorus (2.5-4.9) mg/dl Magnesium (1.7-2.4) mg/dl Albumin (3.4-5.0) gm/dl 05/23/22 05/23/22 05/23/22 Range/Units 02:57 00:54 00:35 WBC (4.8-10.8) K/ul RBC (4.63-6.08) M/uL Hgb (14.0-18.0) g/dl Hct (40.1-51.0) % MCV (80.0-100.0) fL MCH (25.0-34.0) pg MCHC (32.0-36.0) g/dL RDW Std Deviation (36.4-46.3) fL RDW Coeff of Lianne (11.5-14.5) % Plt Count (130-400) K/uL MPV (9.4-12.4) fL Immature Gran % (Auto) % Neut % (Auto) % Lymph % (Auto) % [place] % (Auto) % Eos % (Auto) % Baso % (Auto) % Neut # (Auto) (1.4-6.5) K/uL Lymph # (Auto) (1.2-3.4) K/uL [place] # (Auto) (0.24-0.82) K/uL Eos # (Auto) (0-0.50) K/uL Baso # (Auto) (0-0.2) K/uL Immature Gran # (Auto) (0.00-0.02) K/uL PT (9.0-12.0) Seconds INR (0.9-1.1) APTT (21.0-31.0) Seconds PTT Ratio Sodium (136-145) mmol/L Potassium (3.5-5.1) mmol/L Chloride (98-107) mmol/L Carbon Dioxide (21-32) mmol/L Anion Gap (3-11) BUN (6-23) mg/dl Creatinine (0.6-1.4) mg/dl Est Cr Clr Drug Dosing ml/min Est GFR ( Amer) ml/min Est GFR (Non-Af Amer) ml/min BUN/Creatinine Ratio (10-20) Glucose (70-99(Fasting)) mg/dl POC Glucose 182 H 123 H 58 L* (70-99) mg/dl Estimat Average Glucose mg/dl Hemoglobin A1c (4.5-5.6) % Calcium (8.5-10.1) mg/dl Phosphorus (2.5-4.9) mg/dl Magnesium (1.7-2.4) mg/dl Albumin (3.4-5.0) gm/dl 05/23/22 05/22/22 05/22/22 Range/Units 00:04 23:48 23:35 WBC (4.8-10.8) K/ul RBC (4.63-6.08) M/uL Hgb (14.0-18.0) g/dl Hct (40.1-51.0) % MCV (80.0-100.0) fL MCH (25.0-34.0) pg MCHC (32.0-36.0) g/dL RDW Std Deviation (36.4-46.3) fL RDW Coeff of Lianne (11.5-14.5) % Plt Count (130-400) K/uL MPV (9.4-12.4) fL Immature Gran % (Auto) % Neut % (Auto) % Lymph % (Auto) % [place] % (Auto) % Eos % (Auto) % Baso % (Auto) % Neut # (Auto) (1.4-6.5) K/uL Lymph # (Auto) (1.2-3.4) K/uL [place] # (Auto) (0.24-0.82) K/uL Eos # (Auto) (0-0.50) K/uL Baso # (Auto) (0-0.2) K/uL Immature Gran # (Auto) (0.00-0.02) K/uL PT (9.0-12.0) Seconds INR (0.9-1.1) APTT (21.0-31.0) Seconds PTT Ratio Sodium (136-145) mmol/L Potassium (3.5-5.1) mmol/L Chloride (98-107) mmol/L Carbon Dioxide (21-32) mmol/L Anion Gap (3-11) BUN (6-23) mg/dl Creatinine (0.6-1.4) mg/dl Est Cr Clr Drug Dosing ml/min Est GFR ( Amer) ml/min Est GFR (Non-Af Amer) ml/min BUN/Creatinine Ratio (10-20) Glucose (70-99(Fasting)) mg/dl POC Glucose 59 L* 62 L* 57 L* (70-99) mg/dl Estimat Average Glucose mg/dl Hemoglobin A1c (4.5-5.6) % Calcium (8.5-10.1) mg/dl Phosphorus (2.5-4.9) mg/dl Magnesium (1.7-2.4) mg/dl Albumin (3.4-5.0) gm/dl 05/22/22 05/22/22 Range/Units 20:08 18:02 WBC (4.8-10.8) K/ul RBC (4.63-6.08) M/uL Hgb (14.0-18.0) g/dl Hct (40.1-51.0) % MCV (80.0-100.0) fL MCH (25.0-34.0) pg MCHC (32.0-36.0) g/dL RDW Std Deviation (36.4-46.3) fL RDW Coeff of Lianne (11.5-14.5) % Plt Count (130-400) K/uL MPV (9.4-12.4) fL Immature Gran % (Auto) % Neut % (Auto) % Lymph % (Auto) % [place] % (Auto) % Eos % (Auto) % Baso % (Auto) % Neut # (Auto) (1.4-6.5) K/uL Lymph # (Auto) (1.2-3.4) K/uL [place] # (Auto) (0.24-0.82) K/uL Eos # (Auto) (0-0.50) K/uL Baso # (Auto) (0-0.2) K/uL Immature Gran # (Auto) (0.00-0.02) K/uL PT (9.0-12.0) Seconds INR (0.9-1.1) APTT (21.0-31.0) Seconds PTT Ratio Sodium (136-145) mmol/L Potassium (3.5-5.1) mmol/L Chloride (98-107) mmol/L Carbon Dioxide (21-32) mmol/L Anion Gap (3-11) BUN (6-23) mg/dl Creatinine (0.6-1.4) mg/dl Est Cr Clr Drug Dosing ml/min Est GFR ( Amer) ml/min Est GFR (Non-Af Amer) ml/min BUN/Creatinine Ratio (10-20) Glucose (70-99(Fasting)) mg/dl POC Glucose 209 H 104 H (70-99) mg/dl Estimat Average Glucose mg/dl Hemoglobin A1c (4.5-5.6) % Calcium (8.5-10.1) mg/dl Phosphorus (2.5-4.9) mg/dl Magnesium (1.7-2.4) mg/dl Albumin (3.4-5.0) gm/dl PG Care Time/CCT Total # of Minutes Spent Total Time Spent with Patient: Total time spent is greater than 50% in coordination of care (as documented) at patient's floor/unit and/or counseling patient: Coding Level of Care Code 82900 SUB INP/OBS CARE 2/35MIN Diagnoses Acute bronchitis due to Rhinovirus J20.6 Generalized weakness R53.1 PAF (paroxysmal atrial fibrillation) I48.0 Chronic kidney disease, stage 3a N18.3 Diabetes E11.42; Z79.4 Diabetes mellitus type: type 2 Diabetes mellitus alf insulin use: with alf use Diabetes mellitus complication status: with neurologic complications Diabetes mellitus complication detail: with polyneuropathy Asthma J45.909 Seizure-like activity R56.9 Parkinsonism G20 CAD (coronary artery disease) I25.10 Coronary Disease-Associated Artery/Lesion type: [place] artery [place] vs. 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 transplanted heart: [place] heart Associated angina: without angina Qualified Code(s): I25.10 - Atherosclerotic heart disease of [place] coronary artery without angina pectoris (3) Rheumatoid arthritis Rheumatoid arthritis location: unspecified site Rheumatoid factor presence: unspecified presence Qualified Code(s): M06.9 - Rheumatoid arthritis, unspecified (4) Anemia Anemia type: unspecified type Qualified Code(s): D64.9 - Anemia, unspecified
[2022-05-23] MEDS: guaiFENesin/DEXTROM SYRUP 200MG/20MG 10ML UDC PO PRN (19:47)
[2022-05-23] MEDS: ATORVASTATIN 40 MG TAB PO SCH (21:00)
[2022-05-23] MEDS: CHOLECALCIFEROL 1,000 UNITS 25 MCG TAB PO SCH (21:00)
[2022-05-23] MEDS: levETIRAcetam 250 MG TAB PO SCH (21:00)
[2022-05-24] MEDS: INSULIN ASPART PER UNIT SC SCH ×7 (00:32→20:46)
[2022-05-24] MEDS: guaiFENesin/DEXTROM SYRUP 200MG/20MG 10ML UDC PO PRN ×2 (02:29→10:00)
[2022-05-24 07:23] LABS: Basophils # (auto) 0.01 K/uL (0-0.2); Basophils % (auto) 0.1 %; Eosinophils # (auto) 0.01 K/uL (0-0.50); Eosinophils % (auto) 0.1 %; Hematocrit (blood only) 31.5 % (40.1-51.0); Hemoglobin 10.2 g/dl (14.0-18.0); Immature Granulocytes # (auto) 0.07 K/uL (0.00-0.02); Immature Granulocytes % (auto) 0.9 %; Lymphocytes # (auto) 0.84 K/uL (1.2-3.4); Lymphocytes % (auto) 11.1 %; Mean Corpuscular Hemoglobin 27.1 pg (25.0-34.0); Mean Corpuscular Hgb Conc 32.4 g/dL (32.0-36.0); Mean Corpuscular Volume 83.8 fL (80.0-100.0); Mean Platelet Volume 9.9 fL (9.4-12.4); Monocytes # (auto) 0.41 K/uL (0.24-0.82); Monocytes % (auto) 5.4 %; Neutrophils # (auto) 6.25 K/uL (1.4-6.5); Neutrophils % (auto) 82.4 %; Platelet Count 208 K/uL (130-400); RDW Standard Deviation 48.5 fL (36.4-46.3); Red Blood Count 3.76 M/uL (4.63-6.08); White Blood Count 7.59 K/ul (4.8-10.8)
[2022-05-24] MEDS: ALBUT/IPRATROP 3MG/0.5MG NEB 3 ML VIAL NEB SCH ×3 (07:39→20:21)
[2022-05-24 07:47] LABS: BUN Creatinine Ratio 36.2 (10-20); Calcium 8.8 mg/dl (8.5-10.1); Est GFR (Non-African American) 68.1 ml/min
[2022-05-24 07:52] LABS: INR 3.2 (0.9-1.1); Prothrombin Time 31.9 Seconds (9.0-12.0)
[2022-05-24 08:07] LABS: Ferritin 103.4 ng/ml (8-388)
[2022-05-24] MEDS: CARBIDOPA/LEVODOPA 25/100MG TAB PO SCH ×4 (08:31→21:24)
[2022-05-24] MEDS: SENNA 8.6 MG TAB PO SCH (08:32)
[2022-05-24] MEDS: FINASTERIDE 5 MG TAB PO SCH (08:32)
[2022-05-24] MEDS: allopurinoL 100 MG TAB PO SCH (08:32)
[2022-05-24] MEDS: GABAPENTIN 300 MG CAP PO SCH (08:32)
[2022-05-24] MEDS: levETIRAcetam 500 MG TAB PO SCH (08:33)
[2022-05-24] MEDS: predniSONE 20 MG TAB PO SCH (08:33)
[2022-05-24] MEDS: TOPIRAMATE 100 MG TAB PO SCH ×2 (08:33→21:24)
[2022-05-24] MEDS: ASPIRIN 81 MG ECTAB PO SCH (08:33)
[2022-05-24] MEDS: FEXOFENADINE HCL 180 MG TAB PO SCH (08:33)
[2022-05-24] MEDS: AZITHROMYCIN 500 MG in DEXTROSE 5% 250 ML IV SCH (08:34)
[2022-05-24] MEDS: LANTUS PER UNIT CHARGE SQ SCH ×2 (08:36→21:29)
[2022-05-24] MEDS: UMECLIDINIUM/VILANTEROL 62.5/25MCG 7 PUFFS/INHALER INH SCH (08:37)
[2022-05-24] MEDS: FLUTICASONE FUROATE 100MCG 14 PUFFS/INHALER INH SCH (08:37)
[2022-05-24] MEDS: NovoLIN-N (NPH) PER UNIT CHARGE SQ SCH (08:37)
[2022-05-24] MEDS: ACETAMINOPHEN 325 MG TAB PO PRN (10:00)
--- NOTE | 2022-05-24 12:32 | Pharmacy Report ---
Pharmacy Glycemic Short Note 2 - Date of Service May 24, 2022 - Glycemic Short BSG Results (Last 24 hours): 05/23/22 05/23/22 05/23/22 11:35 11:42 14:45 Glucose POC Glucose 379 H* 376 H* 229 H 05/23/22 05/23/22 05/24/22 16:33 20:39 00:27 Glucose POC Glucose 181 H 124 H 139 H 05/24/22 05/24/22 05/24/22 04:06 06:35 07:52 Glucose 148 H POC Glucose 172 H 123 H OUTPATIENT ANTIDIABETIC REGIMEN: * Lantus 20 units SC BID * NPH 10 units SC daily (also takes prednisone 10 mg PO daily) * Novolog SSI HbA1c ordered for 05/23/22 ASSESSMENT: 05/24/22 * Patient received 106 units of insulin yesterday, 40 units basal. Blood sugars improved after extra SQ doses given between lunch and dinner. * Patient transitioned from Solu-Medrol 20mg IV Q8H to Prednisone 40mg PO daily today. * Start NPH with prednisone, continue basal and bolus insulin dosing at this time. 05/23/22 * Patient received 75 units of SQ insulin yesterday (45 units basal) + 4 hours of insulin drip at ~3.9units/hr * Patient with hypoglycemia late last night, pt refused hypoglycemia treatment protocol, hence sustained, likely due to excess basal, will continue home dose of basal at this time, even while on steroids to prevent further hypoglycemia. * Tighten CF/CR at this time while still on Solu-medrol 20mg IV Q8H 05/22/22 * DB is a 77 year old male admitted overnight following recent fall (patient reports having had loss of balance/generalized leg weakness) * Patient started on methylprednisolone 20 mg IV q8h for acute bronchitis possibly secondary to rhinovirus/bacterial COPD exac. * Patient's BSG was 240 mg/dL this morning, received 20 units of Lantus and 3 units of Novolog * Pharmacy consulted for glycemic management at lunchtime due to multiple BSGs > 400 mg/dL * Utilizing what will likely be a short-term insulin infusion, additional 5 units of Lantus ordered by provider prior to consult PLAN FOR INPATIENT GLYCEMIC CONTROL: * Basal insulin * Lantus 20 units SQ BID * NPH 20 units daily with prednisone 40mg daily * Bolus insulin * NovoLog per scale ACHS or Q6hrs while NPO * Goal Range: Low 110 mg/dL - High 140 mg/dL * Correction Factor: 12 mg/dL/unit * Nutritional / Prandial insulin per carb ratio of 1 unit per 3 grams CHO consumed
[2022-05-24] MEDS: DICLOFENAC SOD 1% GEL 100 GM TUBE EXT SCH ×3 (14:18→21:23)
--- NOTE | 2022-05-24 14:19 | Hospitalist Progress Note ---
Date of Service May 24, 2022 Assessment & Plan (1) Acute bronchitis due to Rhinovirus: Plan: Acute bronchitis due to rhinovirus/secondary bacterial/COPD exacerbation- improving but with persistent cough and wheezing. Not hypoxic CXR with possible PNA RLL COntinues with wheezing but feeling better with coughing out sputum -received Methylprednisolone 20 mg IV every 8 hours x 2 days and now on po prednisone 40mg daily -taper down over 1 week -continue Duonebs tid scheduled -continue guaifenesin DM prn for cough -supplemental O2 as needed-weaned to room air -finished out 3 day course of Azithromycin 500 mg IV daily -Continue usual maintenance inhalers -check sputum culture-not yet collected (2) Generalized weakness: Plan: Generalized weakness/status post fall/chronic ambulatory dysfunction- CT of head and CT of hip negative for acute injury Likely acute worsening of generalized weakness and debilitation due to bronchitis associated with rhinovirus/enterovirus Treat bronchitis PT/OT assessment- needs rehab (3) PAF (paroxysmal atrial fibrillation): Plan: had intermittent rapid afib shortly after admission with rates 160s now resolved x 2 days continue warfarin and follow INR not on AV elysia amor (4) Chronic kidney disease, stage 3a: Plan: 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 and at baseline -Avoid nephrotoxins -renally dose meds when appropriate -follow BMP (5) Diabetes: Plan: with severe hyperglycemia here on steroids, requiring insulin gtt, now off and pharmacy managing much improved continue basal and bolus insulin HgbA1C 7.3% (6) Asthma: Plan: as above (7) Seizure-like activity: Plan: continue home meds keppra, gabapentin and topiramate no acute issues with chronic metabolic acidosis, non AG likely 2/2 topamax (8) Parkinsonism: Plan: continue Sinemet (9) CAD (coronary artery disease): Plan: Continue atorvastatin, ASA no acute issues (10) Depression: Plan: with anxiety continue topamax (11) Aortic valve replaced: Plan: noted (12) Idiopathic polyneuropathy: Plan: continue gabapentin (13) Rheumatoid arthritis: Plan: not on meds for this (14) Anemia: Plan: chronic and stable in the 10s likely from CKD but also found to have transferrin sat low here at 13% B12, folate normal here assess as outpt to see if needs GI workup -add on FeSO4 tabs 325mg po qAM (15) Gout: Plan: no acute issues Continue allopurinol (16) Prostate cancer: Plan: continue finasteride Rojas removed and passed TOV Plan DVT proph-coumadin, follow INR-high today-hold coumadin Dispo-continued stay med tele, PT/OT evals recommend rehab-d/w CM about referral to the [facility] for SNF Admission and Anticipated Discharge Date Admission Date: May 23, 2022 Subjective Pt reports he was able to cough out a lot of sputum last night and feel much better today although tired from not much sleep. Feeling generally weak and PT recommending rehab. Having arthritis pain in knees and asking for voltaren gel Tele with NSR, PACs, normal rates Review of Systems Review of Systems: All systems reviewed & are unremarkable except as noted in HPI & below Physical Exam Constitutional: WD/WN, vitals as above Eyes: + anicteric sclerae Neck: trachea midline, no thyromegaly Respiratory: normal respiratory effort and + cough Auscultation: + rhonchi (right base but less) and + wheezes (bilat but less than previous); no crackles Cardiovascular: RRR, no murmur, no edema Chest (Breasts): Chest: normal inspection of chest Gastrointestinal (Abdomen): normal bowel sounds, soft, nontender, no hepatosplenomegaly Musculoskeletal: Extremities: extremities normal to inspection; no cyanosis and no clubbing Skin: no rashes, warm and dry Neurologic: moves all extremities and awake; no focal motor deficits Results & Data Results & Data ([facility]) Vital Signs (Past 12 Hours) Vital Signs Temp Pulse Pulse Resp BP Pulse Ox O2 Del Method 05/24/22 12:00 68 18 112/61 93 Room Air 05/24/22 12:00 67 20 92 Room Air 05/24/22 11:51 Room Air 05/24/22 11:42 36.5 C 66 20 100/55 L 91 Room Air 05/24/22 07:39 67 18 91 Room Air 05/24/22 07:10 36.6 C 77 20 147/74 H 97 Room Air 05/24/22 06:57 88 05/24/22 03:00 36.7 C 77 20 137/75 92 Nasal Cannula O2 Flow Rate 05/24/22 12:00 05/24/22 12:00 05/24/22 11:51 05/24/22 11:42 05/24/22 07:39 05/24/22 07:10 05/24/22 06:57 05/24/22 03:00 2 Laboratory Results 05/24/22 05/24/22 05/24/22 Range/Units 11:55 07:52 06:35 WBC (4.8-10.8) K/ul RBC (4.63-6.08) M/uL Hgb (14.0-18.0) g/dl Hct (40.1-51.0) % MCV (80.0-100.0) fL MCH (25.0-34.0) pg MCHC (32.0-36.0) g/dL RDW Std Deviation (36.4-46.3) fL RDW Coeff of Lianne (11.5-14.5) % Plt Count (130-400) K/uL MPV (9.4-12.4) fL Immature Gran % (Auto) % Neut % (Auto) % Lymph % (Auto) % [place] % (Auto) % Eos % (Auto) % Baso % (Auto) % Neut # (Auto) (1.4-6.5) K/uL Lymph # (Auto) (1.2-3.4) K/uL [place] # (Auto) (0.24-0.82) K/uL Eos # (Auto) (0-0.50) K/uL Baso # (Auto) (0-0.2) K/uL Immature Gran # (Auto) (0.00-0.02) K/uL PT 31.9 H (9.0-12.0) Seconds INR 3.2 H (0.9-1.1) Sodium (136-145) mmol/L Potassium (3.5-5.1) mmol/L Chloride (98-107) mmol/L Carbon Dioxide (21-32) mmol/L Anion Gap (3-11) BUN (6-23) mg/dl Creatinine (0.6-1.4) mg/dl Est Cr Clr Drug Dosing ml/min Est GFR ( Amer) ml/min Est GFR (Non-Af Amer) ml/min BUN/Creatinine Ratio (10-20) Glucose (70-99(Fasting)) mg/dl POC Glucose 207 H 123 H (70-99) mg/dl Calcium (8.5-10.1) mg/dl Phosphorus (2.5-4.9) mg/dl Magnesium (1.7-2.4) mg/dl Iron (35-175) mcg/dl TIBC (250-450) mcg/dl Unsaturated IBC (155-355) mcg/dl Transferrin % Sat (20-50) % Ferritin (8-388) ng/ml Albumin (3.4-5.0) gm/dl Vitamin B12 (180-914) pg/ml Folate (>5.38) ng/ml 05/24/22 05/24/22 05/24/22 Range/Units 06:35 06:35 06:35 WBC 7.59 (4.8-10.8) K/ul RBC 3.76 L (4.63-6.08) M/uL Hgb 10.2 L (14.0-18.0) g/dl Hct 31.5 L (40.1-51.0) % MCV 83.8 (80.0-100.0) fL MCH 27.1 (25.0-34.0) pg MCHC 32.4 (32.0-36.0) g/dL RDW Std Deviation 48.5 H (36.4-46.3) fL RDW Coeff of Lianne 16.0 H (11.5-14.5) % Plt Count 208 (130-400) K/uL MPV 9.9 (9.4-12.4) fL Immature Gran % (Auto) 0.9 % Neut % (Auto) 82.4 % Lymph % (Auto) 11.1 % [place] % (Auto) 5.4 % Eos % (Auto) 0.1 % Baso % (Auto) 0.1 % Neut # (Auto) 6.25 (1.4-6.5) K/uL Lymph # (Auto) 0.84 L (1.2-3.4) K/uL [place] # (Auto) 0.41 (0.24-0.82) K/uL Eos # (Auto) 0.01 (0-0.50) K/uL Baso # (Auto) 0.01 (0-0.2) K/uL Immature Gran # (Auto) 0.07 H (0.00-0.02) K/uL PT (9.0-12.0) Seconds INR (0.9-1.1) Sodium 139 (136-145) mmol/L Potassium 4.0 (3.5-5.1) mmol/L Chloride 112 H (98-107) mmol/L Carbon Dioxide 20 L (21-32) mmol/L Anion Gap 7 (3-11) BUN 38 H (6-23) mg/dl Creatinine 1.05 (0.6-1.4) mg/dl Est Cr Clr Drug Dosing 72.0 ml/min Est GFR ( Amer) 79.0 ml/min Est GFR (Non-Af Amer) 68.1 ml/min BUN/Creatinine Ratio 36.2 H (10-20) Glucose 148 H (70-99(Fasting)) mg/dl POC Glucose (70-99) mg/dl Calcium 8.8 (8.5-10.1) mg/dl Phosphorus 3.0 (2.5-4.9) mg/dl Magnesium 2.0 (1.7-2.4) mg/dl Iron 28 L (35-175) mcg/dl TIBC 224 L (250-450) mcg/dl Unsaturated IBC 196 (155-355) mcg/dl Transferrin % Sat 13 L (20-50) % Ferritin 103.4 (8-388) ng/ml Albumin 3.0 L (3.4-5.0) gm/dl Vitamin B12 460 (180-914) pg/ml Folate 21.46 (>5.38) ng/ml 05/24/22 05/24/22 05/23/22 Range/Units 04:06 00:27 20:39 WBC (4.8-10.8) K/ul RBC (4.63-6.08) M/uL Hgb (14.0-18.0) g/dl Hct (40.1-51.0) % MCV (80.0-100.0) fL MCH (25.0-34.0) pg MCHC (32.0-36.0) g/dL RDW Std Deviation (36.4-46.3) fL RDW Coeff of Lianne (11.5-14.5) % Plt Count (130-400) K/uL MPV (9.4-12.4) fL Immature Gran % (Auto) % Neut % (Auto) % Lymph % (Auto) % [place] % (Auto) % Eos % (Auto) % Baso % (Auto) % Neut # (Auto) (1.4-6.5) K/uL Lymph # (Auto) (1.2-3.4) K/uL [place] # (Auto) (0.24-0.82) K/uL Eos # (Auto) (0-0.50) K/uL Baso # (Auto) (0-0.2) K/uL Immature Gran # (Auto) (0.00-0.02) K/uL PT (9.0-12.0) Seconds INR (0.9-1.1) Sodium (136-145) mmol/L Potassium (3.5-5.1) mmol/L Chloride (98-107) mmol/L Carbon Dioxide (21-32) mmol/L Anion Gap (3-11) BUN (6-23) mg/dl Creatinine (0.6-1.4) mg/dl Est Cr Clr Drug Dosing ml/min Est GFR ( Amer) ml/min Est GFR (Non-Af Amer) ml/min BUN/Creatinine Ratio (10-20) Glucose (70-99(Fasting)) mg/dl POC Glucose 172 H 139 H 124 H (70-99) mg/dl Calcium (8.5-10.1) mg/dl Phosphorus (2.5-4.9) mg/dl Magnesium (1.7-2.4) mg/dl Iron (35-175) mcg/dl TIBC (250-450) mcg/dl Unsaturated IBC (155-355) mcg/dl Transferrin % Sat (20-50) % Ferritin (8-388) ng/ml Albumin (3.4-5.0) gm/dl Vitamin B12 (180-914) pg/ml Folate (>5.38) ng/ml 05/23/22 05/23/22 Range/Units 16:33 14:45 WBC (4.8-10.8) K/ul RBC (4.63-6.08) M/uL Hgb (14.0-18.0) g/dl Hct (40.1-51.0) % MCV (80.0-100.0) fL MCH (25.0-34.0) pg MCHC (32.0-36.0) g/dL RDW Std Deviation (36.4-46.3) fL RDW Coeff of Lianne (11.5-14.5) % Plt Count (130-400) K/uL MPV (9.4-12.4) fL Immature Gran % (Auto) % Neut % (Auto) % Lymph % (Auto) % [place]ph[place] % (Auto) % Eos % (Auto) % Baso % (Auto) % Neut # (Auto) (1.4-6.5) K/uL Lymph # (Auto) (1.2-3.4) K/uL [place] # (Auto) (0.24-0.82) K/uL Eos # (Auto) (0-0.50) K/uL Baso # (Auto) (0-0.2) K/uL Immature Gran # (Auto) (0.00-0.02) K/uL PT (9.0-12.0) Seconds INR (0.9-1.1) Sodium (136-145) mmol/L Potassium (3.5-5.1) mmol/L Chloride (98-107) mmol/L Carbon Dioxide (21-32) mmol/L Anion Gap (3-11) BUN (6-23) mg/dl Creatinine (0.6-1.4) mg/dl Est Cr Clr Drug Dosing ml/min Est GFR ( Amer) ml/min Est GFR (Non-Af Amer) ml/min BUN/Creatinine Ratio (10-20) Glucose (70-99(Fasting)) mg/dl POC Glucose 181 H 229 H (70-99) mg/dl Calcium (8.5-10.1) mg/dl Phosphorus (2.5-4.9) mg/dl Magnesium (1.7-2.4) mg/dl Iron (35-175) mcg/dl TIBC (250-450) mcg/dl Unsaturated IBC (155-355) mcg/dl Transferrin % Sat (20-50) % Ferritin (8-388) ng/ml Albumin (3.4-5.0) gm/dl Vitamin B12 (180-914) pg/ml Folate (>5.38) ng/ml PG Care Time/CCT Total # of Minutes Spent Total Time Spent with Patient: Total time spent is greater than 50% in coordination of care (as documented) at patient's floor/unit and/or counseling patient: Coding Level of Care Code 40223 SUB INP/OBS CARE MIN Diagnoses Acute bronchitis due to Rhinovirus J20.6 Generalized weakness R53.1 PAF (paroxysmal atrial fibrillation) I48.0 Chronic kidney disease, stage 3a N18.3 Diabetes E11.42; Z79.4 Diabetes mellitus type: type 2 Diabetes mellitus intermediate manager insulin use: with intermediate manager use Diabetes mellitus complication status: with neurologic complications Diabetes mellitus complication detail: with polyneuropathy Asthma J45.909 Seizure-like activity R56.9 Parkinsonism G20 CAD (coronary artery disease) I25.10 Coronary Disease-Associated Artery/Lesion type: [place] artery [place] vs. transplanted heart: [place] heart Associated angina: without angina Depression F32.A Aortic valve replaced Z95.2 Idiopathic polyneuropathy G60.9 Rheumatoid arthritis M06.9 Rheumatoid arthritis location: unspecified site Rheumatoid factor presence: unspecified presence Anemia D64.9 Anemia type: unspecified type Gout M10.9 Prostate cancer C61 (1) Diabetes Diabetes mellitus type: type 2 Diabetes mellitus care home insulin use: with care home use Diabetes mellitus complication status: with neurologic complications Diabetes mellitus complication detail: with polyneuropathy Qualified Code(s): E11.42 - Type 2 diabetes mellitus with diabetic polyneuropathy; Z79.4 - terminal supervisor (current) use of insulin (2) CAD (coronary artery disease) Coronary Disease-Associated Artery/Lesion type: [place] artery [place] vs. tr ansplanted heart: [place] heart Associated angina: without angina Qualified Code(s): I25.10 - Atherosclerotic heart disease of [place] coronary artery without angina pectoris (3) Rheumatoid arthritis Rheumatoid arthritis location: unspecified site Rheumatoid factor presence: unspecified presence Qualified Code(s): M06.9 - Rheumatoid arthritis, unspecified (4) Anemia Anemia type: unspecified type Qualified Code(s): D64.9 - Anemia, unspecified
[2022-05-24] MEDS: FERROUS SULFATE 325 MG TAB PO SCH (14:59)
[2022-05-24] MEDS: POLYETHYLENE (MIRALAX) 17 GM PACK PO PRN (21:22)
[2022-05-24] MEDS: ATORVASTATIN 40 MG TAB PO SCH (21:23)
[2022-05-24] MEDS: levETIRAcetam 250 MG TAB PO SCH (21:24)
[2022-05-24] MEDS: CHOLECALCIFEROL 1,000 UNITS 25 MCG TAB PO SCH (21:24)
[2022-05-25] MEDS: guaiFENesin/DEXTROM SYRUP 200MG/20MG 10ML UDC PO PRN (00:30)
[2022-05-25] MEDS: INSULIN ASPART PER UNIT SC SCH ×6 (00:40→21:18)
[2022-05-25] MEDS: ALBUT/IPRATROP 3MG/0.5MG NEB 3 ML VIAL NEB SCH ×3 (06:57→19:39)
[2022-05-25 07:03] LABS: BUN Creatinine Ratio 28.8 (10-20); Calcium 9.2 mg/dl (8.5-10.1); Creatinine Clr Calc Pharmacy 72.9 ml/min; Est GFR (African American) 79.9 ml/min; Est GFR (Non-African American) 68.9 ml/min; Magnesium 1.9 mg/dl (1.7-2.4); Potassium 3.6 mmol/L (3.5-5.1)
[2022-05-25 07:25] LABS: INR 2.5 (0.9-1.1); Prothrombin Time 25.1 Seconds (9.0-12.0)
[2022-05-25] MEDS ORDERED: POTASSIUM CHLORIDE CRTAB 20 MEQ TABCR PO STA (08:48)
[2022-05-25] MEDS ORDERED: MAGNESIUM SULFATE / D5W 1 GM/100 ML BAG IV ONE (08:48)
[2022-05-25] MEDS: LANTUS PER UNIT CHARGE SQ SCH ×2 (08:57→21:00)
[2022-05-25] MEDS: NovoLIN-N (NPH) PER UNIT CHARGE SQ SCH (08:57)
[2022-05-25] MEDS: UMECLIDINIUM/VILANTEROL 62.5/25MCG 7 PUFFS/INHALER INH SCH (09:10)
[2022-05-25] MEDS: FLUTICASONE FUROATE 100MCG 14 PUFFS/INHALER INH SCH (09:10)
[2022-05-25] MEDS: predniSONE 20 MG TAB PO SCH (09:11)
[2022-05-25] MEDS: TOPIRAMATE 100 MG TAB PO SCH ×2 (09:12→20:25)
[2022-05-25] MEDS: SENNA 8.6 MG TAB PO SCH (09:12)
[2022-05-25] MEDS: CARBIDOPA/LEVODOPA 25/100MG TAB PO SCH ×4 (09:12→20:25)
[2022-05-25] MEDS: FERROUS SULFATE 325 MG TAB PO SCH (09:12)
[2022-05-25] MEDS: FEXOFENADINE HCL 180 MG TAB PO SCH (09:13)
[2022-05-25] MEDS: FINASTERIDE 5 MG TAB PO SCH (09:13)
[2022-05-25] MEDS: allopurinoL 100 MG TAB PO SCH (09:13)
[2022-05-25] MEDS: ASPIRIN 81 MG ECTAB PO SCH (09:13)
[2022-05-25] MEDS: levETIRAcetam 500 MG TAB PO SCH (09:14)
[2022-05-25] MEDS: DICLOFENAC SOD 1% GEL 100 GM TUBE EXT SCH ×4 (09:14→20:27)
[2022-05-25] MEDS: GABAPENTIN 300 MG CAP PO SCH (09:14)
[2022-05-25] MEDS: POLYETHYLENE (MIRALAX) 17 GM PACK PO PRN (09:18)
--- NOTE | 2022-05-25 14:15 | Pharmacy Report ---
Pharmacy Glycemic Short Note 2 - Date of Service May 25, 2022 - Glycemic Short BSG Results (Last 24 hours): 05/24/22 05/24/22 05/25/22 17:02 20:29 00:31 Glucose POC Glucose 198 H 131 H 113 H 05/25/22 05/25/22 05/25/22 03:44 06:21 07:32 Glucose 109 H POC Glucose 74 87 05/25/22 11:41 Glucose POC Glucose 195 H OUTPATIENT ANTIDIABETIC REGIMEN: * Lantus 20 units SC BID * NPH 10 units SC daily (also takes prednisone 10 mg PO daily) * Novolog SSI HbA1c ordered for 05/23/22 ASSESSMENT: 05/25/22 * Patient received total of 108 units of insulin yesterday, of which 40 units were basal and 20 units were NPH to cover prednisone * Fasting BSG trending downward to 87 mg/dL - will scale back on basal insulin by ~25 % * No change to CF/CR 05/24/22 * Patient received 106 units of insulin yesterday, 40 units basal. Blood sugars improved after extra SQ doses given between lunch and dinner. * Patient transitioned from Solu-Medrol 20mg IV Q8H to Prednisone 40mg PO daily today. * Start NPH with prednisone, continue basal and bolus insulin dosing at this time. 05/23/22 * Patient received 75 units of SQ insulin yesterday (45 units basal) + 4 hours of insulin drip at ~3.9units/hr * Patient with hypoglycemia late last night, pt refused hypoglycemia treatment protocol, hence sustained, likely due to excess basal, will continue home dose of basal at this time, even while on steroids to prevent further hypoglycemia. * Tighten CF/CR at this time while still on Solu-medrol 20mg IV Q8H 05/22/22 * DB is a 77 year old male admitted overnight following recent fall (patient reports having had loss of balance/generalized leg weakness) * Patient started on methylprednisolone 20 mg IV q8h for acute bronchitis possibly secondary to rhinovirus/bacterial COPD exac. * Patient's BSG was 240 mg/dL this morning, received 20 units of Lantus and 3 units of Novolog * Pharmacy consulted for glycemic management at lunchtime due to multiple BSGs > 400 mg/dL * Utilizing what will likely be a short-term insulin infusion, additional 5 units of Lantus ordered by provider prior to consult PLAN FOR INPATIENT GLYCEMIC CONTROL: * Basal insulin - decrease * Lantus 15 units SQ BID * NPH 20 units daily with prednisone 40mg daily * Bolus insulin * NovoLog per scale ACHS or Q6hrs while NPO * Goal Range: Low 110 mg/dL - High 140 mg/dL * Correction Factor: 12 mg/dL/unit * Nutritional / Prandial insulin per carb ratio of 1 unit per 3 grams CHO consumed
[2022-05-25] MEDS ORDERED: bisacodyL 5 MG TABEC PO ONE (19:28)
--- NOTE | 2022-05-25 19:30 | Hospitalist Progress Note ---
Date of Service May 25, 2022 Assessment & Plan (1) Acute bronchitis due to Rhinovirus: Plan: Acute bronchitis due to rhinovirus/secondary bacterial/COPD exacerbation- improving but with persistent cough and wheezing. Not hypoxic CXR with possible PNA RLL COntinues with wheezing but feeling better with coughing out sputum Sputum culture pending but with moderate shaw thus far Blood cultures-no growth to date No fevers or leukocytosis -received Methylprednisolone 20 mg IV every 8 hours x 2 days and then converted to po prednisone 40mg daily x5-day burst-last dose will be 05/29 -continue Duonebs tid scheduled -continue guaifenesin DM prn for cough -supplemental O2 as needed-weaned to room air -finished out 3 day course of Azithromycin 500 mg IV daily -Continue usual maintenance inhalers (2) Generalized weakness: Plan: Generalized weakness/status post fall/chronic ambulatory dysfunction- CT of head and CT of hip negative for acute injury Likely acute worsening of generalized weakness and debilitation due to bronchitis associated with rhinovirus/enterovirus Treat bronchitis PT/OT assessment- needs rehab (3) PAF (paroxysmal atrial fibrillation): Plan: had intermittent rapid afib shortly after admission with rates 160s now resolved for several days continue warfarin and follow INR not on AV elysia amor (4) Chronic kidney disease, stage 3a: 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: assistant site manager 1.0 and at baseline -Avoid nephrotoxins -renally dose meds when appropriate (5) Diabetes: Plan: with severe hyperglycemia here on steroids, requiring insulin gtt, now off and pharmacy managing much improved glucose control continue basal and bolus insulin along with NPH while on prednisone HgbA1C 7.3% (6) Asthma: Plan: as above (7) Seizure-like activity: Plan: continue home meds keppra, gabapentin and topiramate no acute issues with chronic metabolic acidosis, non AG likely 2/2 topamax (8) Parkinsonism: Plan: continue Sinemet (9) CAD (coronary artery disease): Plan: Continue atorvastatin, ASA no acute issues (10) Depression: Plan: with anxiety continue topamax (11) Aortic valve replaced: Plan: noted (12) Idiopathic polyneuropathy: Plan: continue gabapentin (13) Rheumatoid arthritis: Plan: not on meds for this (14) Anemia: Plan: chronic and stable in the 10s likely from CKD but also found to have transferrin sat low here at 13% B12, folate normal here assess as outpt to see if needs GI workup -add on FeSO4 tabs 325mg po qAM (15) Gout: Plan: no acute issues Continue allopurinol (16) Prostate cancer: Plan: continue finasteride Rojas removed and passed TOV Plan DVT proph-coumadin, follow INR every 2 days Dispo-continued stay med tele, PT/OT evals recommend rehab-he is excepted at the [facility] for SNF, needs insurance authorization-medically stable for discharge Admission and Anticipated Discharge Date Admission Date: May 23, 2022 Subjective Patient reports still with a slightly productive cough. Rhinorrhea. Had some cramping in the legs today which is now improved with Voltaren gel. He has been out of bed to the bathroom and to the chair today. No chest pains or shortness of breath. He feels constipated now and is requesting bisacodyl. Telemetry with normal sinus rhythm, PACs, rates in the 70s to 90s Review of Systems Review of Systems: All systems reviewed & are unremarkable except as noted in HPI & below Physical Exam Constitutional: WD/WN, vitals as above Eyes: + anicteric sclerae Neck: trachea midline, no thyromegaly Respiratory: normal respiratory effort and + cough Auscultation: + rhonchi (right base but less) and + wheezes (bilat but less than previous); no crackles Cardiovascular: RRR, no murmur, no edema Chest (Breasts): Chest: normal inspection of chest Gastrointestinal (Abdomen): normal bowel sounds, soft, nontender, no hepatosplenomegaly Musculoskeletal: Extremities: extremities normal to inspection; no cyanosis and no clubbing Skin: no rashes, warm and dry Neurologic: moves all extremities and awake; no focal motor deficits Results & Data Results & Data ([facility]) Vital Signs (Past 12 Hours) Vital Signs Temp Pulse Pulse Resp BP Pulse Ox O2 Del Method 05/25/22 16:00 36.8 C 64 20 105/55 L 94 Room Air 05/25/22 14:58 62 05/25/22 13:00 86 20 94 Room Air 05/25/22 11:25 36.7 C 60 16 128/72 94 Room Air 05/25/22 10:22 67 05/25/22 08:00 Room Air 05/25/22 07:45 36.9 C 65 16 150/68 H 93 Room Air Laboratory Results 05/25/22 05/25/22 05/25/22 Range/Units 20:47 16:30 11:41 PT (9.0-12.0) Seconds INR (0.9-1.1) Sodium (136-145) mmol/L Potassium (3.5-5.1) mmol/L Chloride (98-107) mmol/L Carbon Dioxide (21-32) mmol/L Anion Gap (3-11) BUN (6-23) mg/dl Creatinine (0.6-1.4) mg/dl Est Cr Clr Drug Dosing ml/min Est GFR ( Amer) ml/min Est GFR (Non-Af Amer) ml/min BUN/Creatinine Ratio (10-20) Glucose (70-99(Fasting)) mg/dl POC Glucose 161 H 171 H 195 H (70-99) mg/dl Calcium (8.5-10.1) mg/dl Magnesium (1.7-2.4) mg/dl 05/25/22 05/25/22 05/25/22 Range/Units 07:32 06:21 06:21 PT 25.1 H (9.0-12.0) Seconds INR 2.5 H (0.9-1.1) Sodium 141 (136-145) mmol/L Potassium 3.6 (3.5-5.1) mmol/L Chloride 112 H (98-107) mmol/L Carbon Dioxide 24 (21-32) mmol/L Anion Gap 5 (3-11) BUN 30 H (6-23) mg/dl Creatinine 1.04 (0.6-1.4) mg/dl Est Cr Clr Drug Dosing 72.9 ml/min Est GFR ( Amer) 79.9 ml/min Est GFR (Non-Af Amer) 68.9 ml/min BUN/Creatinine Ratio 28.8 H (10-20) Glucose 109 H (70-99(Fasting)) mg/dl POC Glucose 87 (70-99) mg/dl Calcium 9.2 (8.5-10.1) mg/dl Magnesium 1.9 (1.7-2.4) mg/dl 05/25/22 Range/Units 03:44 PT (9.0-12.0) Seconds INR (0.9-1.1) Sodium (136-145) mmol/L Potassium (3.5-5.1) mmol/L Chloride (98-107) mmol/L Carbon Dioxide (21-32) mmol/L Anion Gap (3-11) BUN (6-23) mg/dl Creatinine (0.6-1.4) mg/dl Est Cr Clr Drug Dosing ml/min Est GFR ( Amer) ml/min Est GFR (Non-Af Amer) ml/min BUN/Creatinine Ratio (10-20) Glucose (70-99(Fasting)) mg/dl POC Glucose 74 (70-99) mg/dl Calcium (8.5-10.1) mg/dl Magnesium (1.7-2.4) mg/dl PG Care Time/CCT Total # of Minutes Spent Total Time Spent with Patient: Total time spent is greater than 50% in coordination of care (as documented) at patient's floor/unit and/or counseling patient: Coding Level of Care Code 42694 SUB INP/OBS CARE 2/35MIN Diagnoses Acute bronchitis due to Rhinovirus J20.6 Generalized weakness R53.1 PAF (paroxysmal atrial fibrillation) I48.0 Chronic kidney disease, stage 3a N18.3 Diabetes E11.42; Z79.4 Diabetes mellitus complication detail: with polyneuropathy Diabetes mellitus complication status: with neurologic complications Diabetes mellitus fdc insulin use: with fdc use Diabetes mellitus type: type 2 Asthma J45.909 Seizure-like activity R56.9 Parkinsonism G20 CAD (coronary artery disease) I25.10 Associated angina: without angina Coronary Disease-Associated Artery/Lesion type: [place] artery [place] vs. transplanted heart: [place] heart Depression F32.A Aortic valve replaced Z95.2 Idiopathic polyneuropathy G60.9 Rheumatoid arthritis M06.9 Rheumatoid arthritis location: unspecified site Rheumatoid factor presence: unspecified presence Anemia D64.9 Anemia type: unspecified type Gout M10.9 Prostate cancer C61 (1) Rheumatoid arthritis Rheumatoid arthritis location: unspecified site Rheumatoid factor presence: unspecified presence Qualified Code(s): M06.9 - Rheumatoid arthritis, unspecified (2) Diabetes Diabetes mellitus complication detail: with polyneuropathy Diabetes mellitus complication status: with neurologic complications Diabetes mellitus fdc insulin use: with fdc use Diabetes mellitus type: type 2 Qualified Code(s): E11.42 - Type 2 diabetes mellitus with diabetic polyneuropathy; Z79.4 - [facility] (current) use of insulin (3) CAD (coronary artery disease) Associated angina: without angina Coronary Disease-Associated Artery/Lesion type: [place] artery [place] vs. transplanted heart: [place] heart Qualified Code(s): I25.10 - Atherosclerotic heart disease of [place] coronary artery without angina pectoris (4) Anemia Anemia type: unspecified type Qualified Code(s): D64.9 - Anemia, unspecified
[2022-05-25] MEDS: levETIRAcetam 250 MG TAB PO SCH (20:25)
[2022-05-25] MEDS: ATORVASTATIN 40 MG TAB PO SCH (20:25)
[2022-05-25] MEDS: SODIUM CHLORIDE 0.65% NA SOLN 45 ML (OCEAN) SCH (20:33)
[2022-05-25] MEDS: CHOLECALCIFEROL 1,000 UNITS 25 MCG TAB PO SCH (21:02)
[2022-05-26] MEDS: ALBUT/IPRATROP 3MG/0.5MG NEB 3 ML VIAL NEB SCH ×2 (06:53→12:17)
[2022-05-26] MEDS: UMECLIDINIUM/VILANTEROL 62.5/25MCG 7 PUFFS/INHALER INH SCH (09:03)
[2022-05-26] MEDS: FLUTICASONE FUROATE 100MCG 14 PUFFS/INHALER INH SCH (09:04)
[2022-05-26] MEDS: TOPIRAMATE 100 MG TAB PO SCH (09:05)
[2022-05-26] MEDS: DICLOFENAC SOD 1% GEL 100 GM TUBE EXT SCH ×2 (09:05→12:29)
[2022-05-26] MEDS: CARBIDOPA/LEVODOPA 25/100MG TAB PO SCH ×2 (09:05→12:29)
[2022-05-26] MEDS: SENNA 8.6 MG TAB PO SCH (09:06)
[2022-05-26] MEDS: allopurinoL 100 MG TAB PO SCH (09:06)
[2022-05-26] MEDS: FINASTERIDE 5 MG TAB PO SCH (09:06)
[2022-05-26] MEDS: FERROUS SULFATE 325 MG TAB PO SCH (09:06)
[2022-05-26] MEDS: ASPIRIN 81 MG ECTAB PO SCH (09:06)
[2022-05-26] MEDS: FEXOFENADINE HCL 180 MG TAB PO SCH (09:06)
[2022-05-26] MEDS: SODIUM CHLORIDE 0.65% NA SOLN 45 ML (OCEAN) SCH ×2 (09:07→12:29)
[2022-05-26] MEDS: GABAPENTIN 300 MG CAP PO SCH (09:07)
[2022-05-26] MEDS: levETIRAcetam 500 MG TAB PO SCH (09:07)
[2022-05-26] MEDS: predniSONE 20 MG TAB PO SCH (09:07)
[2022-05-26] MEDS: NovoLIN-N (NPH) PER UNIT CHARGE SQ SCH (09:09)
[2022-05-26] MEDS: LANTUS PER UNIT CHARGE SQ SCH (09:09)
[2022-05-26] MEDS: INSULIN ASPART PER UNIT SC SCH ×2 (09:09→12:28)
[2022-05-26 10:47] LABS: INR 1.6 (0.9-1.1); Prothrombin Time 16.5 Seconds (9.0-12.0)
--- NOTE | 2022-05-26 13:52 | Discharge Summary ---
Date of Service May 26, 2022 Admission HPI Per Admitting Provider The patient is a 77-year-old male with a past medical history including mixed action and resting tremor, rotator cuff tendinitis, asthma, acute on chronic respiratory failure, CKD stage IIIa, depression, idiopathic polyneuropathy, left lower lobe pneumonia, prostate cancer with LUTS, parkinsonism, seizure-like activity, lower GI bleed, diabetes mellitus, CAD, aortic valve replacement and rheumatoid arthritis. Patient with similar symptoms today as in previous admissions, where he gets an acute worsening of generalized weakness, having fallen this time, and did report injury to his head and right hip, however, CTs of both areas were negative. Due to significance of his weakness, he is being admitted for PT OT consult and further assessment. Principal Diagnosis Acute rhinovirus bronchitis, acute exacerbation COPD, weakness with falls Discharge Exam General-alert and oriented x3, no fevers, no chills HEENT-head atraumatic and normocephalic, pupils equal and reactive to light, extraocular muscles intact Neck-no lymphadenopathy or thyromegaly, trachea midline Chest-midline rhonchi audible. No wheezing. No dullness Cardiac-regular rate and rhythm, normal S1 and S2 Abdomen-normal bowel sounds, nontender, no hepatosplenomegaly Extremities-no cyanosis, clubbing, or edema Neuro-cranial nerves II through XII intact, motor and sensory function within normal limits, strength symmetrical , no focal deficits Psych-normal affect, normal mood Discharge Data Allergies Allergy/AdvReac Type Severity Reaction Status Date / Time Iodinated Contrast Media Allergy Severe Anaphylaxis Verified 05/21/22 21:44 shellfish derived Allergy Severe Anaphylaxis Verified 05/21/22 21:44 tamsulosin [From Flomax] Allergy Intermediate Itching Verified 05/21/22 21:44 Tetanus Vaccines and Toxoid Allergy Unknown Unknown Verified 05/21/22 21:44 Consultations 05/21/22 23:56 ED Decision to Admit Stat Ordered Studies 05/21/22 21:20 CT head/brain wo con Urgent 05/21/22 21:29 CT hip RT wo con Urgent Hospital Course (1) Acute bronchitis due to Rhinovirus: Acute bronchitis due to rhinovirus/secondary bacterial/COPD exacerbation- improving but with persistent cough and wheezing. Not hypoxic CXR with possible PNA RLL COntinues with wheezing but feeling better with coughing out sputum Sputum culture pending but with moderate shaw thus far Blood cultures-no growth to date No fevers or leukocytosis -received Methylprednisolone 20 mg IV every 8 hours x 2 days and then converted to po prednisone 40mg daily x5-day burst-last dose will be 05/29 -continue Duonebs tid scheduled -continue guaifenesin DM prn for cough -supplemental O2 as needed-weaned to room air -finished out 3 day course of Azithromycin 500 mg IV daily -Continue usual maintenance inhalers (2) Generalized weakness: Generalized weakness/status post fall/chronic ambulatory dysfunction- CT of head and CT of hip negative for acute injury Likely acute worsening of generalized weakness and debilitation due to bronchitis associated with rhinovirus/enterovirus Treat bronchitis PT/OT assessment- needs rehab (3) PAF (paroxysmal atrial fibrillation): had intermittent rapid afib shortly after admission with rates 160s now resolved for several days continue warfarin and follow INR not on AV elysia amor (4) Chronic kidney disease, stage 3a: plaster pattern caster 1.0 and at baseline -Avoid nephrotoxins -renally dose meds when appropriate (5) Diabetes: with severe hyperglycemia here on steroids, requiring insulin gtt, now off and pharmacy managing much improved glucose control continue basal and bolus insulin along with NPH while on prednisone HgbA1C 7.3% (6) Asthma: as above (7) Seizure-like activity: continue home meds keppra, gabapentin and topiramate no acute issues with chronic metabolic acidosis, non AG likely 2/2 topamax (8) Parkinsonism: continue Sinemet (9) CAD (coronary artery disease): Continue atorvastatin, ASA no acute issues (10) Depression: with anxiety continue topamax (11) Aortic valve replaced: noted (12) Idiopathic polyneuropathy: continue gabapentin (13) Rheumatoid arthritis: not on meds for this (14) Anemia: chronic and stable in the 10s likely from CKD but also found to have transferrin sat low here at 13% B12, folate normal here assess as outpt to see if needs GI workup -added on FeSO4 tabs 325mg po qAM (15) Gout: no acute issues Continue allopurinol (16) Prostate cancer: continue finasteride Wetzel removed and he passed TOV Plan DVT proph-coumadin, follow INR every 2 days Dispo- [facility] Total Time Total Time Spent Total Time Spent (In Minutes): 35 minutes Discharge Plan Discharge Items Patient Disposition: Transfer Longterm Fac Reason For Visit: GENERALIZED WEAKNESS, S/P FALL, BRONCHITIS Discharge Diagnosis: Acute rhinovirus bronchitis, acute exacerbation COPD, weakness with falls Activity: Resume your previous activity Non-emergency contact: Primary Care Provider Call non-emergency contact if: you have any medication questions and your symptoms worsen Follow-up/Referrals: Josh Gaspar MD [Primary Care Provider] - Diet: Carb Consistent or DM2 and Heart Healthy Addtl Attending Provider Instructions: Take prednisone through May 29 then stop. Pending Studies at Discharge: No Stand-Alone Forms: [facility] Skilled Items Patient informed of condition?: Yes DNR: Yes Discharge Level of Care: Skilled Communicable Disease: No Discharge Prognosis: Stable Lines: None Urinary Catheter: No Medications and DC Order Prescriptions: New warfarin [Jantoven] 7.5 mg Tablet 7.5 mg PO [id number]@1600 Qty: 10 0RF warfarin 5 mg Tablet 5 mg PO TuTh@1600 Qty: 10 0RF ferrous sulfate 325 mg (65 mg iron) Tablet,Delayed Release (Dr/Ec) 325 mg PO QAM Qty: 30 0RF Anoro Ellipta 62.5-25 mcg/actuation Blister With Device 1 puff inhalation DAILY Qty: 30 0RF prednisone 20 mg Tablet 40 mg PO QAM Qty: 6 0RF Saline Mist 0.65 % Aerosol,[place] 2 spray NA QID Qty: 10 0RF Continued Trelegy Ellipta 100-62.5-25 mcg blister with device 1 inh inhalation QAM Qty: 60 5RF finasteride 5 mg tablet 5 mg PO QAM Qty: 30 3RF prednisone 10 mg tablet 10 mg PO QAM topiramate [Topamax] 100 mg tablet 100 mg PO BID 30 Days Qty: 180 4RF cholecalciferol (vitamin D3) [Vitamin D3] 50 mcg (2,000 unit) capsule 4,000 unit PO HS atorvastatin 40 mg tablet 40 mg PO HS fexofenadine [Karlee Allergy] 180 mg Tablet 180 mg PO QAM acetaminophen 325 mg Tablet 650 mg PO Q4H PRN (Reason: pain) Qty: 30 0RF Rx Instructions: OTC aspirin 81 mg Tablet,Delayed Release (Dr/Ec) 81 mg PO QAM Qty: 30 0RF Rx Instructions: OTC albuterol sulfate [Ventolin HFA] 90 mcg/actuation HFA aerosol inhaler 2 puff INHALATION Q4H PRN (Reason: Shortness Of Breath Or Wheezing) Novolin N NPH U-100 Insulin 100 unit/mL Suspension 10 unit SUBCUT QAM gabapentin 300 mg capsule 300 mg PO DAILY carbidopa-levodopa 25-100 mg tablet 1 tab PO QID diclofenac sodium [Voltaren] 1 % Gel 2 g TOPICAL DAILY allopurinol 100 mg tablet 100 mg PO DAILY levetiracetam [Keppra] 500 mg tablet See Rx Instructions .ROUTE .COMPLEX Rx Instructions: 500 MG; TAKES 1,000 MG QAM, THEN 750 MG HS. insulin glargine [Lantus Solostar U-100 Insulin] 100 unit/mL (3 mL) insulin pen 20 unit SUBCUT BID polyethylene glycol 3350 [Miralax] 17 gram/dose powder 17 g PO BID PRN (Reason: Constipation) furosemide 20 mg tablet 20 mg PO QAM sennosides [Senokot] 8.6 mg tablet 17.2 mg PO QAM warfarin 5 mg tablet See Rx Instructions .ROUTE .COMPLEX Rx Instructions: 5 mg orally; TAKES 7.5 MG ON SUN, MON, WED, FRI & SAT. THEN TAKES 5 MG ON & . TAKES QPM. insulin aspart U-100 [Novolog FlexPen U-100 Insulin] 100 unit/mL (3 mL) insulin pen 0 sliding scale dose subcut ACHS Rx Instructions: supplemental scale for meal-time coverage and bed-time coverage. Discharge Orders: Discharge Order (Routine); Ordered 05/26/22 Ordered By: Dayron Sen/Other Patient Handouts: Managing Type 2 Diabetes Admission Data Admit Date/Time: 05/23/22 11:27 Attending Provider: Dayron Villela Admit Provider: Shayan Mims Primary Care Provider: Josh Gaspar Other Providers: Shayan Mims ; [facility] Coding Level of Care Code HOSP INP/OBS DISCH >30 MIN Diagnoses Acute bronchitis due to Rhinovirus J20.6 Generalized weakness R53.1 PAF (paroxysmal atrial fibrillation) I48.0 Chronic kidney disease, stage 3a N18.3 Diabetes E11.42; Z79.4 Diabetes mellitus type: type 2 Diabetes mellitus terminal manager insulin use: with terminal manager use Diabetes mellitus complication status: with neurologic complications Diabetes mellitus complication detail: with polyneuropathy Asthma J45.909 Seizure-like activity R56.9 Parkinsonism G20 CAD (coronary artery disease) I25.10 Coronary Disease-Associated Artery/Lesion type: [place] artery [place] vs. transplanted heart: [place] heart Associated angina: without angina Depression F32.A Aortic valve replaced Z95.2 Idiopathic polyneuropathy G60.9 Rheumatoid arthritis M06.9 Rheumatoid arthritis location: unspecified site Rheumatoid factor presence: unspecified presence Anemia D64.9 Anemia type: unspecified type Gout M10.9 Prostate cancer C61
[2022-05-26] MEDS: WARFARIN SOD 7.5 MG TAB PO SCH (15:04)
[2022-05-26] MEDS ORDERED: LANTUS PER UNIT CHARGE SQ SCH (21:00)
== END 2022-05-26 16:35 | DRG 202 ==
LOC: 2W 21:16 → ED 21:16 → SUATTDRO 05-22 01:43 → 2W 05-22 02:41 → SUATTDRO 05-23 11:27
DX: J20.6 Acute bronchitis due to rhinovirus; G20 Parkinson's disease; Z98.1 Arthrodesis status; I48.0 Paroxysmal atrial fibrillation; C61 Malignant neoplasm of prostate; F32.A Depression, unspecified; Z91.041 Radiographic dye allergy status; E78.5 Hyperlipidemia, unspecified; M10.9 Gout, unspecified; W18.39XA Other fall on same level, initial encounter; E11.65 Type 2 diabetes mellitus with hyperglycemia; J98.11 Atelectasis; J96.11 Chronic respiratory failure with hypoxia; E86.0 Dehydration; J44.1 Chronic obstructive pulmonary disease with (acute) exacerbation; E11.22 Type 2 diabetes mellitus with diabetic chronic kidney disease; M06.9 Rheumatoid arthritis, unspecified; Z95.2 Presence of prosthetic heart valve; S09.90XA Unspecified injury of head, initial encounter; Z88.7 Allergy status to serum and vaccine; G40.909 Epilepsy, unspecified, not intractable, without status epilepticus; N18.32 Chronic kidney disease, stage 3b; E11.42 Type 2 diabetes mellitus with diabetic polyneuropathy; I50.9 Heart failure, unspecified; Y92.039 Unspecified place in apartment as the place of occurrence of the external cause; M25.551 Pain in right hip

== ENCOUNTER 2022-08-23 07:31 | Inpatient (IN) ==
--- NOTE | 2022-08-15 15:13 | Anesthesiology Consultation ---
Date of Service August 15, 2022 Assessment & Plan (1) Encounter for pre-operative examination: Plan - check coags and BSG STAT am DOS. - Case discussed in detail with Dr. Florentino including cardiology note and recent pulm note. He advised nothing additional including further evaluation is needed from his standpoint prior to surgery and that pt can proceed as planned at [facility]. - neurology 08/03/22 [place]: "...Recurrent falls, persistent severe headache nausea, b lurred vision and other posttraumatic symptoms. He is on chronic anticoagulation. High risk for subdural hematoma, recommend CT of head...Seizure-like activity: Continue current medications Topamax and Keppra, however will consider trial lowering dosage Keppra..." - pulmonology 08/01/22 [facility]: "...having some difficulty getting around and some breathing issues...can do a prednisone burst to see if that helps him..." - pulmonology 07/27/22 [facility]: "...rheumatology...did not feel to have any extrapulmonary symptoms consistent with a connective tissue disease...trouble with dysphagia...using 2 LPM with sleep. On chronic prednisone, 10 mg. Suspected ILD due to chronic aspiration-had a surgical biopsy which was consistent with aspiration. PFTs and imaging ordered...very careful with what he eats...daily coughs...shortness of breath. Occurs with more exertion...continue Trelegy...reiterated aspiration precautions...CHF euvolemic on exam today..." - cardiology clearance 07/10/22: "...preop evaluation in preparation for an SI joint fusion...no sob or chest pain...status post mechanical aortic valve and aortic conduit for a dissection in 2003...left main stent 02/2019. 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 Multiple TIAs...high risk to proceed with surgery...risk for cardiac complication around 5-10%...larger concern however is his pulmonary status...pulmonary fibrosis, requires nighttime O2 and is frequently in the hospital for pneumonia...would recommend he see pulmonology before proceeding with his surgery...he did not feel there was any risk too great for him to proceed in order to free him from his back pain..." - COVID screening: Per cyber engineer on 08/14/2022: Travel screen negative, no known COVID-19 positive contacts or current COVID-19 related symptoms in past 2 weeks. To surgeon's discretion if preop COVID testing is needed. Chart Review Chart Review: Acceptable Risk for Surgery and Patient NOT seen in Pre Admission Testing History Surgery Operation Date: 08/23/22 09:05 Proposed Procedures p Right Sacroiliac Joint Fusion - Darius Agarwal DO Height/Weight Height: 5 ft 10 in Weight: 101.151 kg Allergies Allergy/AdvReac Type Severity Reaction Status Date / Time bee venom protein (honey bee) Allergy Severe anaphylaxis Verified 08/15/22 15:11 Iodinated Contrast Media Allergy Severe Anaphylaxis Verified 08/14/22 16:03 shellfish derived Allergy Severe Anaphylaxis Verified 08/14/22 16:03 tamsulosin [From Flomax] Allergy Intermediate Itching Verified 08/14/22 16:03 Tetanus Vaccines and Toxoid Allergy Unknown Unknown Verified 08/14/22 16:03 oxycodone [From Percocet] AdvReac Mild nausea/vomi Verified 08/14/22 16:03 ting propoxyphene [From Darvon] AdvReac Mild nausea/vomi Verified 08/14/22 16:03 ting doxazosin Allergy Intermediate rash Uncoded 08/15/22 15:11 tetanus Allergy Unknown Uncoded 08/15/22 15:11 lamotrigine AdvReac Intermediate confusion Uncoded 08/15/22 15:11 and dizziness Medications Home Medications Medication Instructions Recorded Confirmed Last Taken atorvastatin 40 mg tablet 40 mg PO HS 05/28/20 08/14/22 05/21/22 fexofenadine 180 mg tablet 180 mg PO QAM 02/11/21 08/14/22 05/21/22 (Karlee Allergy) allopurinol 100 mg tablet 100 mg PO QAM 04/10/21 08/14/22 05/21/22 cholecalciferol (vitamin D3) 50 4,000 unit PO HS 07/14/21 08/14/22 05/21/22 mcg (2,000 unit) capsule (Vitamin D3) insulin glargine 100 unit/mL (3 15 unit subcut BID 07/26/21 08/14/2223 mL) subcutaneous pen (Lantus Solostar U-100 Insulin) acetaminophen 325 mg tablet 650 mg PO Q4H PRN pain #30 tabs 08/04/21 08/14/22 Unknown aspirin 81 mg tablet,delayed 81 mg PO QAM #30 tabs 08/04/21 08/14/22 05/21/22 release fluticasone fur. 100 mcg-umeclid 1 inh inhalation QAM #60 ea 09/06/21 08/14/22 05/21/22 62.5 mcg-vilant 25 mcg inhalat.powder (Trelegy Ellipta) albuterol sulfate 90 mcg/actuation 2 puff inhalation Q4H PRN 09/27/21 08/14/22 Unknown aerosol inhaler (Ventolin HFA) Shortness Of Breath Or Wheezing polyethylene glycol 3350 17 17 g PO BID PRN Constipation 10/04/21 08/14/22 Unknown gram/dose oral powder (Miralax) furosemide 20 mg tablet 20 mg PO QAM 11/24/21 08/14/22 05/21/22 sennosides 8.6 mg tablet (Senokot) 17.2 mg PO QAM 11/24/21 08/14/22 05/21/22 warfarin 5 mg tablet See Rx Instructions .Route .COMPLEX 11/24/21 08/14/22 05/21/22 finasteride 5 mg tablet 5 mg PO QAM #30 tabs 12/12/21 08/14/22 05/21/22 topiramate 100 mg tablet (Topamax) 100 mg PO BID 30 days #180 tabs 12/29/21 08/14/22 05/21/22 insulin aspart U-100 100 unit/mL 1 sliding scale dose subcut ACHS 02/26/2205/21/22 (3 mL) subcutaneous pen (Novolog FlexPen U-100 Insulin aspart) diclofenac sodium 1 % topical gel 2 g topical DAILY 05/21/22 08/14/22 05/21/22 ferrous sulfate 325 mg (65 mg 325 mg PO QAM #30 tabs 05/26/22 08/14/22 Unknown iron) tablet,delayed release sodium chloride 0.65 % nasal spray 2 spray NA QID #10 mL 05/26/22 08/14/22 Unknown aerosol (Saline Mist) warfarin 5 mg tablet 5 mg PO TuTh@1600 #10 tabs 05/26/22 08/14/22 Unknown warfarin 7.5 mg tablet (Jantoven) 7.5 mg PO SuMoWeFrSa@1600 #10 tabs 05/26/22 08/14/22 Unknown carbidopa 25 mg-levodopa 100 mg 1 tab PO TID #270 tabs 08/03/22 08/14/22 Unknown tablet levetiracetam 500 mg tablet 1,000 mg PO BID #360 tabs 08/03/22 08/14/22 Unknown (Keppra) cyanocobalamin (vitamin B-12) 1,000 mcg PO QAM 08/14/22 08/14/22 Unknown 1,000 mcg tablet,extended release (Vitamin B-12 ER) gabapentin 300 mg capsule 300 - 600 mg PO BID 08/14/22 08/14/22 Unknown magnesium 250 mg tablet 250 mg PO QAM 08/14/22 08/14/22 Unknown pantoprazole 20 mg tablet,delayed 20 mg PO QAM 08/14/22 08/14/22 Unknown release (Protonix) potassium chloride 20 mEq 20 meq PO QAM 08/14/22 08/14/22 Unknown tablet,extended release prednisone 5 mg tablet 5 mg PO QAM 08/14/22 08/14/22 Unknown Past Medical History Medical History (Updated 08/15/22 @ 15:32 by Lucrecia Valentin PA-C) Anemia history of blood transfusion, 2020 Anxiety Aortic ectasia, thoracic Aspiration pneumonia hx of--per pt was due to pain medications Asthma inhaler daily and prn CAD (coronary artery disease) follows with Dr. Chau Chronic dyspnea Chronic kidney disease, stage 3a Chronic pulmonary aspiration Chronic respiratory failure with hypoxia Chronic use of steroids Constipated Current use of halfway anticoagulation warfarin daily Depression Diabetes IDDM Diabetic peripheral neuropathy Dysphagia Edema Generalized weakness Gout Hearing deficit Heart failure > 70% History of seizures last 2019--on Keppra/Topiramate--follows with Dr. 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 mild R sided wkness. attending outpatient physical therapy w/ good improvement in strength (5+/5 strength of all 4 extremities as of 05/28/20) Supratherapeutic INR Thoracic ascending aortic aneurysm s/p repair TIA (transient ischemic attack) 2019--no deficits--follows with Dr. Sheikh Past Family History Family History Mother , age 87 of pulmonary issues Rheumatoid arthritis Father , in his mid 80s of a stroke Stroke Other Coronary heart disease No family history of adverse response to anesthesia Past Surgical History Surgical History H/O hernia repair History of aortic valve replacement 2003 @ [facility] in [place], [place] History of appendectomy History of bilateral cataract extraction History of cardiac cath x3--2018 @ [facility] with 1 stent placed/2019 @ [facility]/last 04/2021 @ [facility] History of cholecystectomy History of colonoscopy History of esophagogastroduodenoscopy (EGD) History of fusion of cervical spine normal ROM History of gastric bypass 2007--lap band History of heart artery stent x1--2018 @ [facility] History of lumbar spinal fusion History of lung biopsy 2019 History of partial nephrectomy 1986 on right kidney History of prostate biopsy malignant History of tonsillectomy History of tooth extraction all upper teeth removed Social History Smoking Status: Never smoker Do You Dip or Chew Tobacco: No Hx Alcohol Use: No Hx Substance Use: No substance use type: does not use Lab Results Anesthesia Preop Results Results Anesthesia Widget: WBC 5.67 K/ul (4.8-10.8) 07/03/22 Hgb 11.7 g/dl (14.0-18.0) L 07/03/22 Hct 36.6 % (42.0-52.0) L 07/03/22 Plt 191 K/uL (130-400) 07/03/22 Na 139 mmol/L (136-145) 07/03/22 K 3.4 mmol/L (3.5-5.1) L 07/03/22 Cl 106 mmol/L (98-107) 07/03/22 CO2 27 mmol/L (21-32) 07/03/22 BUN 36 mg/dl (6-23) H 07/03/22 Creat 1.41 mg/dl (0.6-1.4) H 07/03/22 Fasting Glucose 135 mg/dl (70-99) H 07/03/22 PT 23.1 Seconds (9.0-12.0) H 07/03/22 PTT 37.0 Seconds (21.0-31.0) H 07/03/22 INR 2.3 (0.9-1.1) H 07/03/22 Testing Electrocardiogram Date: 07/03/22 NSR, rate 65 bpm Chest X-Ray Date: 07/03/22 Cardiac silhouette is enlarged. Prior median sternotomy with cardiac valvular prosthesis. Unchanged blunting of the costophrenic angles with bibasilar atelectasis/scarring. No pneumothorax, large pleural effusion or overt pulmonary edema. Surgical suture material the left lung base. Cervical spinal fusion hardware. Bones appear grossly intact. IMPRESSION: Chronic findings without acute process. Echocardiogram Date: 07/02/21 EF > 70% Moderate to severe cLVH No regional wall motion abnormalities No significant valvular pathology Cardiac Catheterization Date: 05/24/21 LM -normal caliber, long vessel, proximal/mid stent widely patent. LAD -large caliber, 20 to 30% mid segment disease, distal vessel tapers to apex. Medium D1, D2 without significant disease. Circumflex -medium caliber, angulated. Gives off 1 large LPL. No significant disease. RCA -dominant, large caliber vessel, luminal irregularities Arterial Closure: TR band Summary: 1. Mild nonobstructive coronary artery disease Widely patent left main stent without restenosis -20 to 30% mid LAD disease Recommendations: No obstructive CAD to explain significant troponin elevation. Suspect troponin secondary to myocarditis, stress-induced cardiomyopathy versus less likely vasospasm. Pulmonary Function Test Date: 07/13/22 Adequate delivery Exercise oximetry performed on room air x 6 minutes...lowest SPO2 on room air was 90% Cervical Spine Date: 03/30/22 CT No fractures. No subluxation. Prevertebral soft tissues and the C1-C2 interval are intact. No pneumothorax. Bilateral mastoid effusions, left greater than right persist. Anterior cervical discectomy and fusion at C4-C5 again noted. The left C2-C3 facets are fused. Other Testing Head CT 08/03/22 No significant change compared to the prior study. No acute intracranial abnormality. A left mastoid effusion again noted. CT chest 07/13/22 Bilateral diffuse ground-glass opacities with reticulonodular fibrosis. Pattern is similar to prior study. No cystic honeycombing. Findings may be secondary to chronic nonspecific interstitial pneumonia. Micronodules. For patients at low risk (minimal or absent history of smoking and of other known risk factors), no routine follow-up is indicated. For patients at high risk (history of smoking or of other known risk factors), consider option CT chest at [address] 05/12/22 Lung bases: The patient is status post midline sternotomy and cardiac valve jelani geries. Epicardial pacing leads are in place. The heart is top normal in size and without pericardial effusion. The coronary arteries are calcified. There is diminished attenuation of the cardiac blood pool as compared to the myocardium suggesting anemia. Postoperative change is noted in the lingula. There is multifocal groundglass consolidation at both lung bases, greatest in the lingula. There is dependent scarring/atelectasis, greatest at the right lung base. No pleural effusion is seen. Liver: The unenhanced liver is normal in size, contour, and attenuation. There is no intrahepatic biliary ductal dilatation. Gallbladder: Surgically absent and clips in the gallbladder fossa. Pancreas: The unenhanced pancreas is moderately atrophic and grossly unremarkable. Kidneys: The unenhanced kidneys are atrophic and without hydronephrosis. There is a punctate nonobstructing left renal calculus. No right renal calculi are identified and there is no ureteral stone. There is no evidence of contour deforming renal mass lesion. Abdominal vasculature: The abdominal aorta is normal in course and caliber noting moderate atherosclerotic calcification. Stomach and bowel: There is a small hiatal hernia. A gastric band is in place. There is mild to moderate colonic diverticulosis without CT evidence of acute diverticulitis. Moderate fecal retention is seen throughout the colon. The appendix is not identified and reported surgically absent. Peritoneum: There is no intraperitoneal free air or abdominal ascites. There is evidence of previous ventral hernia repair. The gastric band reservoir is seen in the left lower quadrant abdominal wall. Pelvic viscera: The prostate gland is diminutive and heterogeneous with brachytherapy implants in place. The bladder is decompressed and not well assessed. There is evidence of previous right inguinal herniorrhaphy. A small fat-containing inguinal hernia is noted on the left. Skeletal structures: The skeletal structures are osteopenic. There is lumbos acral spondylosis with postoperative change of L3-S1 spinal fusion. No lytic or blastic lesions are seen. IMPRESSION: 1. Multifocal groundglass consolidation is seen at both lung bases. Correlate clinically for evidence of an infectious/inflammatory pneumonitis. 2. No acute infectious or inflammatory findings are identified in the abdomen or pelvis. 3. Colonic diverticulosis without CT evidence of acute diverticulitis. 4. There is a punctate nonobstructing left calculus. 5. Additional findings as above. Neck CTA 02/11/21 1. There is no evidence of hemorrhage, mass effect, or acute territorial ischemia noting angiographic phase technique. 2. Unremarkable CT angiogram of the brain. 3. Unremarkable CT angiogram of the neck.
[~2022-08-23 07:31] MED LIST: ACETAMINOPHEN 500 MG TAB PO SCH; CeleBREX 200 MG CAP PO SCH; GABAPENTIN 300 MG CAP PO SCH; LR 15ML/HR IV SCH; ceFAZolin 2000MG 2,000 MG/15 ML SYR IV SCH
[2022-08-23] MEDS ORDERED: fentaNYL citrate PF 100 MCG/2 ML VIAL ONE (08:35)
[2022-08-23 08:47] LABS: INR 1.1 (0.9-1.1); Partial Thromboplastin Ratio 1.2; Prothrombin Time 11.6 Seconds (9.0-12.0)
[2022-08-23] MEDS ORDERED: ATROPINE SULFATE 0.1 MG/ML 10ML SYR IV PRN (08:47)
[2022-08-23] MEDS ORDERED: ePHEDrine sulfate 50 MG/ML AMP IV PRN (08:47)
[2022-08-23] MEDS ORDERED: ONDANSETRON INJ 2 MG/ML 2 ML VIAL IV PRN ×2 (08:47→11:51)
[2022-08-23] MEDS ORDERED: fentaNYL citrate PF 100 MCG/2 ML VIAL IV PRN (08:47)
--- NOTE | 2022-08-23 08:49 | History & Physical Bridge Note ---
Date of Service August 23, 2022 History & Physical Bridge Note I have examined the patient, reviewed the History & Physical and in the interval since the performance of the History & Physical I have noted the following changes of clinical significance: no changes noted
--- NOTE | 2022-08-23 08:51 | History & Physical Report ---
Date of Service August 23, 2022 Assessment & Plan (1) Sacroiliitis: Plan: Right sacroiliac joint fusion History of Present Illness Chief Complaint: Right sacroiliitis Primary Care Provider: Josemanuel Melo MD This is a 77-year-old male well-known to me presents with chronic persistent sacroiliitis. After undergoing diagnostic therapeutic injections he is here for surgical invention. Allergies Allergy/AdvReac Type Severity Reaction Status Date / Time bee venom protein (honey bee) Allergy Severe anaphylaxis Verified 08/23/22 08:03 Iodinated Contrast Media Allergy Severe Anaphylaxis Verified 08/23/22 08:03 shellfish derived Allergy Severe Anaphylaxis Verified 08/23/22 08:03 doxazosin Allergy Intermediate Rash Verified 08/23/22 08:03 tamsulosin [From Flomax] Allergy Intermediate Itching Verified 08/23/22 08:03 Tetanus Vaccines and Toxoid Allergy Unknown Unknown Verified 08/23/22 08:03 lamotrigine AdvReac Intermediate Confusion Verified 08/23/22 08:03 oxycodone [From Percocet] AdvReac Mild nausea/vomi Verified 08/23/22 08:03 ting propoxyphene [From Darvon] AdvReac Mild nausea/vomi Verified 08/23/22 08:03 ting Home Medications Medication Instructions Recorded Confirmed Type atorvastatin 40 mg tablet 40 mg PO HS 05/28/20 08/23/22 History fexofenadine 180 mg tablet 180 mg PO QAM 02/11/21 08/23/22 History (Karlee Allergy) allopurinol 100 mg tablet 100 mg PO HS 04/10/21 08/23/22 History cholecalciferol (vitamin D3) 50 4,000 unit PO HS 07/14/21 08/23/22 History mcg (2,000 unit) capsule (Vitamin D3) insulin glargine 100 unit/mL (3 15 unit subcut BID 07/26/21 08/23/22 History mL) subcutaneous pen (Lantus Solostar U-100 Insulin) acetaminophen 325 mg tablet 650 mg PO Q4H PRN pain #30 tabs 08/04/21 08/23/22 Rx aspirin 81 mg tablet,delayed 81 mg PO QAM #30 tabs 08/04/21 08/23/22 Rx release fluticasone fur. 100 mcg-umeclid 1 inh inhalation QAM #60 ea 09/06/21 08/23/22 Rx 62.5 mcg-vilant 25 mcg inhalat.powder (Trelegy Ellipta) albuterol sulfate 90 mcg/actuation 2 puff inhalation Q4H PRN 09/27/21 08/23/22 History aerosol inhaler (Ventolin HFA) Shortness Of Breath Or Wheezing polyethylene glycol 3350 17 17 g PO BID PRN Constipation 10/04/21 08/23/22 History gram/dose oral powder (Miralax) furosemide 20 mg tablet 20 mg PO QAM 11/24/21 08/23/22 History sennosides 8.6 mg tablet (Senokot) 17.2 mg PO QAM 11/24/21 08/23/22 History warfarin 5 mg tablet See Rx Instructions .Route .COMPLEX 11/24/21 08/23/22 History topiramate 100 mg tablet (Topamax) 100 mg PO BID 30 days #180 tabs 12/29/21 08/23/22 Rx insulin aspart U-100 100 unit/mL 1 sliding scale dose subcut ACHS 02/26/22 08/23/22 History (3 mL) subcutaneous pen (Novolog FlexPen U-100 Insulin aspart) diclofenac sodium 1 % topical gel 2 g topical DAILY 05/21/22 08/23/22 History (Voltaren Arthritis Pain) ferrous sulfate 325 mg (65 mg 325 mg PO QAM #30 tabs 05/26/22 08/23/22 Rx iron) tablet,delayed release sodium chloride 0.65 % nasal spray 2 spray NA QID #10 mL 05/26/22 08/23/22 Rx aerosol (Saline Mist) levetiracetam 500 mg tablet 1,000 mg PO BID #360 tabs 08/03/22 08/23/22 Rx (Keppra) cyanocobalamin (vitamin B-12) 1,000 mcg PO QAM 08/14/22 08/23/22 History 1,000 mcg tablet,extended release (Vitamin B-12 ER) gabapentin 300 mg capsule 300 - 600 mg PO BID 08/14/22 08/23/22 History magnesium 250 mg tablet 250 mg PO QAM 08/14/22 08/23/22 History pantoprazole 20 mg tablet,delayed 20 mg PO QAM 08/14/22 08/23/22 History release (Protonix) potassium chloride 20 mEq 20 meq PO HS 08/14/22 08/23/22 History tablet,extended release prednisone 5 mg tablet 5 mg PO QAM 08/14/22 08/23/22 History carbidopa 25 mg-levodopa 100 mg 1 tab PO TID 08/23/22 08/23/22 History tablet (Sinemet) enoxaparin 100 mg/mL subcutaneous 100 mg subcut Q12H 08/23/22 08/23/22 History syringe (Lovenox) finasteride 5 mg tablet (Proscar) 5 mg PO QAM 08/23/22 08/23/22 History warfarin 5 mg tablet 7.5 mg PO TuTh@1600 08/23/22 08/23/22 History warfarin 7.5 mg tablet (Jantoven) 10 mg PO SuMoWeFrSa@1600 08/23/22 08/23/22 History Past Med/Surg History Medical History (Updated 08/23/22 @ 08:50 by Darius Agarwal, DO) Anemia history of blood transfusion, 2020 Anxiety Aortic ectasia, thoracic Aspiration pneumonia hx of--per pt was due to pain medications Asthma inhaler daily and prn CAD (coronary artery disease) follows with Dr. 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 mild R sided wkness. attending outpatient physical therapy w/ good improvement in strength (5+/5 strength of all 4 extremities as of 05/28/20) Supratherapeutic INR Thoracic ascending aortic aneurysm s/p repair TIA (transient ischemic attack) 2019--no deficits--follows with Dr. Sheikh Surgical History H/O hernia repair History of aortic valve replacement 2003 @ [facility] in [place], [place] History of appendectomy History of bilateral cataract extraction History of cardiac cath x3--2018 @ [facility] with 1 stent placed/2019 @ [facility]/last 04/2021 @ [facility] History of cholecystectomy History of colonoscopy History of esophagogastroduodenoscopy (EGD) History of fusion of cervical spine normal ROM History of gastric bypass 2007--lap band History of heart artery stent x1--2017 @ [facility] History of lumbar spinal fusion History of lung biopsy 2019 History of partial nephrectomy 1986 on right kidney History of prostate biopsy malignant History of tonsillectomy History of tooth extraction all upper teeth removed Family History Mother , age 87 of pulmonary issues Rheumatoid arthritis Father , in his mid 80s of a stroke Stroke Other Coronary heart disease No family history of adverse response to anesthesia Social History Smoking Status: Never smoker Second Hand Exposure: No; Do You Dip or Chew Tobacco: No; Tobacco Cessation Education Requested by Patient: No Hx Alcohol Use: No Hx Substance Use: No Preferred Language: Mongolian Communication Ability: Effective Hearing Ability: Hard of Hearing Legislative Assistant Required: No Beliefs That Will Affect Care: None marital status: / Current Living Situation: Alone Current Living Situation Comment: lives at 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
[2022-08-23] MEDS ORDERED: BUPIVACAINE/EPINEPHRINE 0.5% MPF 1:200,000 30 ML VIAL ONE (08:58)
[2022-08-23] MEDS ORDERED: ceFAZolin 330 MG/ML 1 GM VIAL ONE (08:58)
[2022-08-23] MEDS ORDERED: ePHEDrine sulfate 50 MG/ML SYR ONE (09:58)
[2022-08-23] MEDS ORDERED: PROPOFOL IV EMULSION 10 MG/ML 20 ML VIAL IV ONE (09:58)
[2022-08-23] MEDS ORDERED: LIDOCAINE 2% MPF LOCAL 5 ML VIAL ONE (09:58)
[2022-08-23] MEDS ORDERED: DEXAMETHASONE SOD INJ 4 MG/ML VIAL ONE (09:58)
[2022-08-23] MEDS ORDERED: ROCURONIUM BROMIDE 10 MG/ML 5 ML VIAL IV ONE (09:59)
[2022-08-23] MEDS ORDERED: ONDANSETRON INJ 2 MG/ML 2 ML VIAL ONE (10:04)
[2022-08-23] MEDS ORDERED: FLOSEAL HEMOSTATIC MATRIX 10ML TOP ONE (10:07)
[2022-08-23] MEDS ORDERED: NEOSTIGMINE METHYLSULFATE 1 MG/ML 10ML VIAL ONE (10:11)
[2022-08-23] MEDS ORDERED: GLYCOPYRROLATE 0.2 MG/ML VIAL ONE (10:11)
--- NOTE | 2022-08-23 10:17 | Operative Report ---
Post Operative Report Pre & Post Diagnosis Operation Date: 08/23/22 09:05 Pre-Op Diagnosis: Sacroiliac Joint Dysfunction Post-Op Diagnosis: Sacroiliac Joint Dysfunction I identified the patient and participated in the time-out.: Yes Procedure Operation Date: 08/23/22 09:05 Actual Procedures #1 open right SI joint fusion. #2 placement of 25 mm bone allograft filled with I factor into the right SI joint. #3 placement of 2 globus GONZALEZ-coated slotted screws percutaneously across the right SI joint. Surgeon Darius Agarwal, DO Medical Billing Clerk Edith Shaikh Estimated Blood Loss 10 Findings Consistent with Post-Op Diagnosis Specimens None Indications This is a 77-year-old male known to me the presents above-mentioned diagnosis within course of nonoperative care is here for surgical invention. Description of Procedure Patient was met with identified informed consent obtained. Patient was then taken to the operative suite underwent a patient placed in a prone position on the Gunner table chest padded bolsters. All bony prominences well-padded eyes inspected to ensure no external pressure placed upon the. This point the right upper buttock was prepped and draped in a sterile fashion. With the assistance of fluoroscopy and inlet outlet AP and lateral planes identified the right SI joint. I created an incision over the posterior axis of the joint down to and exposing the posterior aspect of the joint. Then placed a working cannula into the joint drilled and curetted out the joint followed by placement of a 25 mm bony allograft filled with I factor directly into the joint. After open arthrodesis and placement of bone graft I placed a second incision along the right upper buttock along the line of the posterior slope of the sacrum. A guidewire was then placed across the joint superiorly verifying position within the outlet and lateral views. Then placed working cannulas over the guidewire drilled across the joint and placed a 50 mm GONZALEZ-coated slotted screw filled with I factor across the joint demonstrating excellent purchase and alignment. A second screw was then placed in similar fashion distally. The screw was 35 mm in length GONZALEZ-coated slotted filled with I factor and local autograft. The incisions were then copiously irrigated closed with subcutaneous Vicryl and 4 Monocryl for final closure. Steri-Strips sterile dressings placed. Patient awakened taken the PACU in stable condition. Please note Edith Shaikh was present at the entire procedure and all the patient positioning complex portions of the surgery and final skin closure. I attest to the content of the Intraoperative Record and any orders documented therein. Any exceptions are noted below.
--- NOTE | 2022-08-23 11:26 | Fluoroscopy Report ---
INTRAOPERATIVE RADIOGRAPHS CLINICAL HISTORY: Right sacroiliac joint fusion. Fluoro time: 108 seconds Ka,r: 86.27 mGy FINDINGS: 3 spot fluoroscopic views of the right sacroiliac joint are presented. 2 cortical lag screw s transfix the right sacroiliac joint. The hardware appears intact. Fusion hardware is noted at the l umbosacral junction. IMPRESSION: Intraoperative images from right sacroiliac joint fusion as above. Electronically signed by: Tan Burleson M.D. 08/23/2022 11:24 AM
--- NOTE | 2022-08-23 11:38 | Anesthesiology Progress Note ---
Date of Service August 23, 2022 Anesthesia Post Procedure Vital Signs Vital Signs: Temp Pulse Pulse Resp BP BP Pulse Ox 08/23/22 11:23 97.3 F L 55 L 14 110/59 L 95 08/23/22 11:15 54 L 20 109/64 98 08/23/22 11:05 62 12 115/62 95 08/23/22 10:55 79 18 121/64 91 08/23/22 10:45 81 12 118/68 99 08/23/22 10:35 87 12 134/68 100 08/23/22 10:29 97.0 F L 86 10 L 150/76 H 96 08/23/22 08:15 08/23/22 08:15 97.3 F L 87 22 134/81 98 O2 Del Method O2 Flow Rate 08/23/22 11:23 Nasal Cannula 2 08/23/22 11:15 Room Air 08/23/22 11:05 Room Air 08/23/22 10:55 Room Air 08/23/22 10:45 Nasal Cannula 4 08/23/22 10:35 Nasal Cannula 4 08/23/22 10:29 Nasal Cannula 4 08/23/22 08:15 Room Air 08/23/22 08:15 Room Air Pain Intensity Bilateral Lower Back: Pain Intensity: 4 Transfer of Care Handoff Completed per policy Notes Mental Status: alert / awake / arousable and participated in evaluation Patient Amnestic to Procedure: Yes Nausea / Vomiting: adequately controlled Pain: adequately controlled Airway Patency, RR, SpO2: stable & adequate BP & HR: stable & adequate Hydration State: stable & adequate Anesthetic Complications: no major complications apparent and Pt Satisfied with anesthetic care
[2022-08-23] MEDS ORDERED: bisacodyL 10 MG SUPP PR PRN (11:51)
[2022-08-23] MEDS ORDERED: DO NOT ADMINISTER FLU VACCINE PRN (11:51)
[2022-08-23] MEDS ORDERED: PROMETHAZINE HCL 12.5 MG in SODIUM CHLORIDE 0.9% 50 ML IV PRN (11:51)
[2022-08-23] MEDS ORDERED: PHARMACY GLYCEMIC MGMT CONSULT PRN (11:51)
[2022-08-23] MEDS ORDERED: ACETAMINOPHEN 500 MG TAB PO PRN (11:51)
[2022-08-23] MEDS ORDERED: ONDANSETRON 4 MG OD TAB PO PRN (11:51)
[2022-08-23] MEDS ORDERED: ACETAMINOPHEN 1,000 MG/100 ML VIAL IV PRN (11:51)
[2022-08-23] MEDS ORDERED: diphenhydrAMINE Capsule 25 MG CAP PO PRN (11:51)
[2022-08-23] MEDS ORDERED: DO NOT ADMINISTER PNEUMOCOCCAL VACCINE PRN (11:51)
[2022-08-23] MEDS ORDERED: ALBUTEROL HFA 8 GM INHALER INH PRN (11:51)
[2022-08-23] MEDS ORDERED: METOCLOPRAMIDE HCL INJ 5 MG/ML 2 ML VIAL IV PRN (11:51)
[2022-08-23] MEDS ORDERED: ALUMINUM/MAGNESIUM SUSP 30 ML UDC PO PRN (11:51)
[2022-08-23] MEDS ORDERED: HYDROmorphone INJ 0.5 MG/0.5 ML SYR IV PRN (11:51)
[2022-08-23] MEDS ORDERED: traMADol HCL 50 MG TABLET PO PRN (11:51)
[2022-08-23] MEDS ORDERED: LORazepam 0.5 MG TAB PO PRN (11:51)
[2022-08-23] MEDS ORDERED: NALOXONE HCL 0.4 MG/1 ML VIAL/CARP IV PRN (11:51)
[2022-08-23] MEDS ORDERED: MAGNESIUM HYDROXIDE SUSP 30 ML UDC PO PRN (11:51)
[2022-08-23] MEDS ORDERED: hydrOXYzine HCl 25 MG TAB PO PRN (11:51)
[2022-08-23] MEDS ORDERED: LORazepam 2 MG/1 ML VIAL IV PRN (11:51)
[2022-08-23] MEDS ORDERED: HYDROmorphone INJ 1 MG/ML SYRINGE IV PRN (11:51)
[2022-08-23] MEDS ORDERED: SOD PHOSPHATE/SOD BIPHOSPHATE ENEMA 132 ML BTL PR PRN (11:51)
[2022-08-23] MEDS ORDERED: FAMOTIDINE 20 MG TAB PO PRN (11:51)
[2022-08-23] MEDS: SODIUM CHLORIDE 0.9% 1000ML 1,000 ML IV SCH ×2 (12:46→22:21)
[2022-08-23] MEDS ORDERED: GLUCOSE 10 TAB/TUBE PO PRN (13:00)
[2022-08-23] MEDS ORDERED: GLUCAGON FOR INJ 1 MG VIAL IM PRN (13:00)
[2022-08-23] MEDS ORDERED: DEXTROSE 50% 50 ML SYRINGE IV PRN (13:00)
[2022-08-23] MEDS ORDERED: CARBOHYDRATES FOR HYPOGLYCEMIA PO PRN (13:00)
[2022-08-23] MEDS ORDERED: GLUCOSE 40% GEL 15 GM TUBE PO PRN (13:00)
[2022-08-23] MEDS ORDERED: LANTUS PER UNIT CHARGE SC ONE (13:00)
--- NOTE | 2022-08-23 13:05 | Pharmacy Report ---
Pharmacy Glycemic Short Note 2 - Date of Service August 23, 2022 - Glycemic Short BSG Results (Last 24 hours): 08/23/22 08/23/22 08/23/22 07:47 10:35 12:23 POC Glucose 212 H 175 H 213 H OUTPATIENT ANTIDIABETIC REGIMEN: * Lantus 15 units SQ BID * Novolog TIDM * Trulicity 1.5mg SQ weekly HbA1C: ____ ASSESSMENT: * Patient is a 77yo M POD #0 right sacroiliac joint fusion. History of DM2 on insulin therapy and Trulicity at home. Pharmacy consulted to assist with glycemic management while inpatient. * BSGs 212-213mg/dL pre-op and post-op. Received 4mg IV dex pre-op. Continued on chronic prednisone 5mg daily. * Based upon historical glycemic data, will give Lantus 15 units X 1 now and continue home regimen of 15 units BID. Novolog severe stress scale ACHS and titrate based upon BSGs. PLAN FOR INPATIENT GLYCEMIC CONTROL: * Hold outpatient oral diabetes medications * Basal insulin * Lantus 15 units SQ BID * Bolus insulin * NovoLog per scale ACHS or Q6hrs while NPO * Goal Range: Low 110 mg/dL - High 140 mg/dL * Correction Factor: 15 mg/dL/unit * Nutritional / Prandial insulin per carb ratio of 1 unit per 5 grams CHO consumed
[2022-08-23] MEDS: INSULIN ASPART PER UNIT CHARGE SC SCH ×3 (14:18→21:22)
[2022-08-23] MEDS: SODIUM CHLORIDE 0.65% NA SOLN 45 ML (OCEAN) SCH ×3 (14:19→21:27)
[2022-08-23] MEDS: CARBIDOPA/LEVODOPA 25/100MG TAB PO SCH ×2 (14:20→21:25)
[2022-08-23] MEDS: oxyCODONE HCL IR 5 MG TAB (IMMEDIATE RELEASE) PO PRN ×2 (14:20→21:22)
--- NOTE | 2022-08-23 18:20 | Hospitalist Progress Note ---
Date of Service August 23, 2022 Assessment & Plan (1) Diabetes: Plan: Last A1c 7.3, sugars low 200s and high 100s right now. Insulin ordered. Did have Decadronwe will need to continue to follow and adjust insulins as needed. (2) CAD (coronary artery disease): Plan: Clinically stable, to continue home meds (3) Interstitial lung disease due to connective tissue disease: Plan: Clinically stable continue home inhalers (4) Rheumatoid arthritis: Plan: On chronic prednisoneblood pressure is stable and showed no signs of acute adrenal insufficiency. Follow (5) Chronic kidney disease, stage 3a: Plan: Basic metabolic panel in the morning (6) DVT prophylaxis: Plan: Currently SCDs, resume anticoagulation once okay with spine surgery Admission and Anticipated Discharge Date Admission Date: August 23, 2022 Subjective Seen postop. No complaints. Notes that overall [place], and is much more socially engaged and much more happy. Denies any significant pain right now, denies any acute needs at this time. Review of Systems Review of Systems: All systems reviewed & are unremarkable except as noted in HPI & below Physical Exam Physical Exam: In general he is awake and alert pleasant no distress. HEENT normocephalic atraumatic mucous membranes moist. Breathing unlabored no accessory muscle use good effort. Skin shows no rashes no pallor or icterus. Neuro without focal deficits. Glucoses noted Results & Data Results & Data Vital Signs (Past 12 Hours) Vital Signs Temp Pulse Pulse Pulse Resp BP BP 08/23/22 14:45 97.7 F 59 L 16 116/63 08/23/22 13:45 97.9 F 55 L 16 105/55 L 08/23/22 12:45 97.5 F L 58 L 18 106/59 L 08/23/22 12:15 97.3 F L 52 L 16 100/55 L 08/23/22 11:23 97.3 F L 55 L 14 110/59 L 08/23/22 11:15 54 L 20 109/64 08/23/22 11:05 62 12 115/62 08/23/22 10:55 79 18 121/64 08/23/22 10:45 81 12 118/68 08/23/22 10:35 87 12 134/68 08/23/22 10:29 97.0 F L 86 10 L 150/76 H 08/23/22 08:15 08/23/22 08:15 97.3 F L 87 22 134/81 Pulse Ox O2 Del Method O2 Flow Rate 08/23/22 14:45 98 Room Air 08/23/22 13:45 98 Room Air 08/23/22 12:45 96 Room Air 08/23/22 12:15 90 Room Air 08/23/22 11:23 95 Nasal Cannula 2 08/23/22 11:15 98 Room Air 08/23/22 11:05 95 Room Air 08/23/22 10:55 91 Room Air 08/23/22 10:45 99 Nasal Cannula 4 08/23/22 10:35 100 Nasal Cannula 4 08/23/22 10:29 96 Nasal Cannula 4 08/23/22 08:15 Room Air 08/23/22 08:15 98 Room Air PG Care Time/CCT Total # of Minutes Spent Total Time Spent with Patient: Total time spent is greater than 50% in coordination of care (as documented) at patient's floor/unit and/or counseling patient: Coding Level of Care Code 02820 SUB INP/OBS CARE MIN Diagnoses Diabetes E11.42; Z79.4 Diabetes mellitus type: type 2 Diabetes mellitus moth exterminator insulin use: with mcfp use Diabetes mellitus complication status: with neurologic complications Diabetes mellitus complication detail: with polyneuropathy CAD (coronary artery disease) I25.10 Coronary Disease-Associated Artery/Lesion type: [place] artery [place] vs. transplanted heart: [place] heart Associated angina: without angina 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; M35.9 Rheumatoid arthritis M06.9 Rheumatoid arthritis location: unspecified site Rheumatoid factor presence: unspecified presence Chronic kidney disease, stage 3a N18.3 DVT prophylaxis Z29.9 (1) Diabetes Diabetes mellitus type: type 2 Diabetes mellitus mcfp insulin use: with moth exterminator use Diabetes mellitus complication status: with neurologic complications Diabetes mellitus complication detail: with polyneuropathy Qualified Code(s): E11.42 - Type 2 diabetes mellitus with diabetic polyneuropathy; Z79.4 - moth exterminator (current) use of insulin (2) CAD (coronary artery disease) Coronary Disease-Associated Artery/Lesion type: [place] artery [place] vs. transplanted heart: [place] heart Associated angina: without angina Qualified Code(s): I25.10 - Atherosclerotic heart disease of [place] coronary artery without angina pectoris (4) Rheumatoid arthritis Rheumatoid arthritis location: unspecified site Rheumatoid factor presence: unspecified presence Qualified Code(s): M06.9 - Rheumatoid arthritis, unspecified
[2022-08-23] MEDS: ceFAZolin 2000MG 2,000 MG/15 ML SYR IV SCH (18:36)
[2022-08-23] MEDS: LANTUS PER UNIT CHARGE SC SCH (21:23)
[2022-08-23] MEDS: allopurinoL 100 MG TAB PO SCH (21:24)
[2022-08-23] MEDS: DOCUSATE SODIUM/SENNA 50/8.6MG TAB PO SCH (21:24)
[2022-08-23] MEDS: TOPIRAMATE 100 MG TAB PO SCH (21:24)
[2022-08-23] MEDS: GABAPENTIN 300 MG CAP PO SCH (21:24)
[2022-08-23] MEDS: POTASSIUM CHLORIDE CRTAB 20 MEQ TABCR PO SCH (21:24)
[2022-08-23] MEDS: ATORVASTATIN 40 MG TAB PO SCH (21:25)
[2022-08-23] MEDS: CHOLECALCIFEROL 1,000 UNITS 25 MCG TAB PO SCH (21:25)
[2022-08-23] MEDS: levETIRAcetam 500 MG TAB PO SCH (21:26)
[2022-08-24] MEDS: ceFAZolin 2000MG 2,000 MG/15 ML SYR IV SCH (00:24)
[2022-08-24] MEDS ORDERED: INSULIN ASPART PER UNIT CHARGE SC ONE (02:00)
[2022-08-24] MEDS: POLYETHYLENE (MIRALAX) 17 GM PACK PO SCH ×4 (05:30→23:00)
[2022-08-24] MEDS: oxyCODONE HCL IR 5 MG TAB (IMMEDIATE RELEASE) PO PRN ×3 (05:38→20:43)
[2022-08-24] MEDS: INSULIN ASPART PER UNIT CHARGE SC SCH ×4 (08:53→20:43)
[2022-08-24] MEDS: LANTUS PER UNIT CHARGE SC SCH (08:54)
[2022-08-24] MEDS: ASPIRIN 81 MG ECTAB PO SCH (08:59)
[2022-08-24] MEDS: CYANOCOBALAMIN (B-12) 500 MCG TABLET PO SCH (09:00)
[2022-08-24] MEDS: CARBIDOPA/LEVODOPA 25/100MG TAB PO SCH ×3 (09:00→20:44)
[2022-08-24] MEDS: FERROUS SULFATE 325 MG TAB PO SCH (09:01)
[2022-08-24] MEDS: FEXOFENADINE HCL 180 MG TAB PO SCH (09:01)
[2022-08-24] MEDS: FINASTERIDE 5 MG TAB PO SCH (09:02)
[2022-08-24] MEDS: FLUTICASONE FUROATE 100MCG 14 PUFFS/INHALER INH SCH (09:02)
[2022-08-24] MEDS: FUROSEMIDE 20 MG TAB PO SCH (09:03)
[2022-08-24] MEDS: GABAPENTIN 600 MG TAB PO SCH (09:03)
[2022-08-24] MEDS: levETIRAcetam 500 MG TAB PO SCH ×2 (09:04→20:44)
[2022-08-24] MEDS: MAGNESIUM OXIDE 400 MG TAB PO SCH (09:04)
[2022-08-24] MEDS: PANTOprazole 40 MG TAB PO SCH (09:05)
--- NOTE | 2022-08-24 09:05 | Discharge Summary ---
Date of Service August 24, 2022 Admission HPI Per Admitting Provider This is a 77-year-old male well-known to me presents with chronic persistent sacroiliitis. After undergoing diagnostic therapeutic injections he is here for surgical invention. Principal Diagnosis Sacroiliitis Discharge Data Allergies Allergy/AdvReac Type Severity Reaction Status Date / Time bee venom protein (honey bee) Allergy Severe anaphylaxis Verified 08/23/22 08:03 Iodinated Contrast Media Allergy Severe Anaphylaxis Verified 08/23/22 08:03 shellfish derived Allergy Severe Anaphylaxis Verified 08/23/22 08:03 doxazosin Allergy Intermediate Rash Verified 08/23/22 08:03 tamsulosin [From Flomax] Allergy Intermediate Itching Verified 08/23/22 08:03 Tetanus Vaccines and Toxoid Allergy Unknown Unknown Verified 08/23/22 08:03 lamotrigine AdvReac Intermediate Confusion Verified 08/23/22 08:03 oxycodone [From Percocet] AdvReac Mild nausea/vomi Verified 08/23/22 08:03 ting propoxyphene [From Darvon] AdvReac Mild nausea/vomi Verified 08/23/22 08:03 ting Consultations 08/23/22 11:51 Consult Hospitalist Routine Procedures Performed Operation Date: 08/23/22 09:05 Actual Procedures p Right Sacroiliac Joint Fusion(Right) - Darius Agarwal DO Ordered Studies 08/23/22 09:05 FL sacrum Routine Hospital Course (1) Sacroiliitis: Patient is status post right sacroiliac joint fusion. Tolerates well stable orthopedic for postoperative. Postop day #1 he is pain is markedly improved. He has good strength testing. Separately discharged home. Discharge orders instructions found in chart for further review. Total Time Total Time Spent Total Time Spent (In Minutes): 20 minutes Discharge Plan Discharge Items Patient Disposition: Home - Self-Care Reason For Visit: Sacroiliac Joint Dysfunction Discharge Diagnosis: Sacroiliitis Activity: As commented below Lifting: No more than 10 pounds Bathing: May shower/bathe in 3 days Weightbearing: Right toe touch Non-emergency contact: Primary Care Provider Call non-emergency contact if: you have any medication questions Follow-up/Referrals: Josemanuel Melo MD [Primary Care Provider] - Diet: Regular Addtl Attending Provider Instructions: Please use a walker to ambulate. Attempt toe-touch weightbearing to the right lower extremity as tolerable. Follow-up in 2 weeks as scheduled. Pending Studies at Discharge: No Stand-Alone Forms: [facility] [employer], Smoking Cessation Medications and DC Order Prescriptions: New tramadol 50 mg tablet 50 mg PO Q6H PRN (Reason: pain, moderate) Qty: 30 0RF ondansetron 4 mg tablet,disintegrating 4 mg PO Q6H PRN (Reason: nausea and vomiting) Qty: 30 0RF oxycodone 5 mg tablet 5 mg PO DAILY PRN (Reason: pain) Qty: 20 0RF Continued Trelegy Ellipta 100-62.5-25 mcg blister with device 1 inh inhalation QAM Qty: 60 5RF levetiracetam [Keppra] 500 mg tablet 1,000 mg PO BID Qty: 360 3RF ubrogepant [Ubrelvy] 50 mg tablet 50 mg PO UD PRN (Reason: Migraine Headache) 0RF topiramate [Topamax] 100 mg tablet 100 mg PO BID 30 Days Qty: 180 4RF cholecalciferol (vitamin D3) [Vitamin D3] 50 mcg (2,000 unit) capsule 4,000 unit PO HS atorvastatin 40 mg tablet 40 mg PO HS fexofenadine [Karlee Allergy] 180 mg Tablet 180 mg PO QAM acetaminophen 325 mg Tablet 650 mg PO Q4H PRN (Reason: pain) Qty: 30 0RF Rx Instructions: OTC aspirin 81 mg Tablet,Delayed Release (Dr/Ec) 81 mg PO QAM Qty: 30 0RF Rx Instructions: OTC albuterol sulfate [Ventolin HFA] 90 mcg/actuation HFA aerosol inhaler 2 puff INHALATION Q4H PRN (Reason: Shortness Of Breath Or Wheezing) diclofenac sodium [Voltaren Arthritis Pain] 1 % Gel 2 g TOPICAL DAILY Rx Instructions: left knee ferrous sulfate 325 mg (65 mg iron) Tablet,Delayed Release (Dr/Ec) 325 mg PO QAM Qty: 30 0RF Saline Mist 0.65 % Aerosol,[place] 2 spray NA QID Qty: 10 0RF prednisone 5 mg Tablet 5 mg PO QAM gabapentin 300 mg capsule 300 - 600 mg PO BID Rx Instructions: 600mg in am/300mg in am pantoprazole [Protonix] 20 mg Tablet,Delayed Release (Dr/Ec) 20 mg PO QAM potassium chloride 20 mEq Tablet Extended Release 20 meq PO HS cyanocobalamin (vitamin B-12) [Vitamin B-12] 1,000 mcg Tablet Extended Release 1,000 mcg PO QAM magnesium 250 mg Tablet 250 mg PO QAM enoxaparin [Lovenox] 100 mg/mL Syringe 100 mg SUBCUT Q12H warfarin [Jantoven] 7.5 mg tablet 10 mg PO [id number]@1600 warfarin 5 mg tablet 7.5 mg PO TuTh@1600 carbidopa-levodopa [Sinemet] 25-100 mg tablet 1 tab PO TID finasteride [Proscar] 5 mg tablet 5 mg PO QAM allopurinol 100 mg tablet 100 mg PO HS insulin glargine [Lantus Solostar U-100 Insulin] 100 unit/mL (3 mL) insulin pen 15 unit SUBCUT BID polyethylene glycol 3350 [Miralax] 17 gram/dose powder 17 g PO BID PRN (Reason: Constipation) furosemide 20 mg tablet 20 mg PO QAM sennosides [Senokot] 8.6 mg tablet 17.2 mg PO QAM warfarin 5 mg tablet See Rx Instructions .ROUTE .COMPLEX Rx Instructions: 5 mg orally; TAKES 7.5 MG ON SUN, MON, WED, FRI & SAT. THEN TAKES 5 MG ON & THURS. TAKES QPM. insulin aspart U-100 [Novolog FlexPen U-100 Insulin] 100 unit/mL (3 mL) insulin pen 1 sliding scale dose subcut ACHS Rx Instructions: supplemental scale for meal-time coverage and bed-time coverage. Discharge Orders: Discharge Order (Routine); Ordered 08/24/22 Ordered By: Darius Agarwal Admission Data Admit Date/Time: 08/23/22 10:21 Attending Provider: Darius Agarwal Admit Provider: Darius Agarwal Primary Care Provider: Josemanuel Melo Other Providers: Jone Pringle
[2022-08-24] MEDS: predniSONE 5 MG TAB PO SCH (09:06)
[2022-08-24] MEDS: UMECLIDINIUM/VILANTEROL 62.5/25MCG 7 PUFFS/INHALER INH SCH (09:07)
[2022-08-24] MEDS: TOPIRAMATE 100 MG TAB PO SCH ×2 (09:07→20:44)
[2022-08-24] MEDS: SODIUM CHLORIDE 0.65% NA SOLN 45 ML (OCEAN) SCH ×4 (09:07→20:45)
--- NOTE | 2022-08-24 09:10 | Hospitalist Progress Note ---
Date of Service August 24, 2022 Assessment & Plan (1) Diabetes: Plan: A1C 7.7% BSGs now appropriate in mid-low 100s, recent Decadron administration Lantus, SSI- adjust as needed (2) CAD (coronary artery disease): Plan: Clinically stable, to continue home meds (3) Interstitial lung disease due to connective tissue disease: Plan: Clinically stable continue home inhalers (4) Rheumatoid arthritis: Plan: On chronic prednisoneblood pressure is stable and showed no signs of acute adrenal insufficiency. Follow (5) Chronic kidney disease, stage 3a: Plan: BMP pending (6) DVT prophylaxis: Plan: Currently SCDs, pharmacologic anticoagulation per orthopedic primary Plan FENGI: Low Na, CC Code status: Full DVT ppx: SCDs, per orthopedics Isolation: None Dispo: MS, d/c planning per orthopedics Medicine will be signing off. Please contact with any further questions. Admission and Anticipated Discharge Date Admission Date: August 23, 2022 Supervising Physician Co-Signing Physician Notes chart reviewed, case d/w dr foss. discharged (appropriately) by primary service prior to my seeing him. as above. outpt / PCP follow up from medical standpoint Subjective Acute events overnight- none. Pt examined at bedside. Reports pain medication is helping his hip pain postoperatively. Denies any acute complaints. Review of Systems Review of Systems: Per HPI/Subjective Physical Exam Physical Exam: In general he is awake and alert pleasant no distress. HEENT normocephalic atraumatic mucous membranes moist. Breathing unlabored no accessory muscle use good effort. Skin shows no rashes no pallor or icterus. Neuro without focal deficits. Tender over incision site of R hip. Results & Data Results & Data Vital Signs (Past 12 Hours) Vital Signs Temp Pulse Resp BP Pulse Ox O2 Del Method 08/24/22 07:43 Room Air 08/24/22 07:32 36.4 C L 63 18 111/61 95 Room Air 08/24/22 03:00 36.3 C L 60 18 104/62 97 Room Air 08/23/22 23:22 36.4 C L 62 18 104/61 95 Room Air Resident Activity Tracking Resident Involvement: Resident Care Provided Care Provided: Adult Hospital Medicine (1) Diabetes Diabetes mellitus complication detail: with polyneuropathy Diabetes mellitus complication status: with neurologic complications Diabetes mellitus roasterman insulin use: with assisted use Diabetes mellitus type: type 2 Qualified Code(s): E11.42 - Type 2 diabetes mellitus with diabetic polyneuropathy; Z79.4 - buttermaker (current) use of insulin (2) CAD (coronary artery disease) Associated angina: without angina Coronary Disease-Associated Artery/Lesion type: [place] artery [place] vs. transplanted heart: [place] heart Qualified Code(s): I25.10 - Atherosclerotic heart disease of [place] coronary artery without angina pectoris (4) Rheumatoid arthritis Rheumatoid arthritis location: unspecified site Rheumatoid factor presence: unspecified presence Qualified Code(s): M06.9 - Rheumatoid arthritis, unspecified
--- NOTE | 2022-08-24 11:10 | Pharmacy Report ---
Pharmacy Glycemic Short Note 2 - Date of Service August 24, 2022 - Glycemic Short BSG Results (Last 24 hours): 08/23/22 08/23/22 08/23/22 12:23 17:09 21:06 POC Glucose 213 H 195 H 169 H 08/24/22 01:38 POC Glucose 102 H OUTPATIENT ANTIDIABETIC REGIMEN: * Lantus 15 units SQ BID * Novolog TIDM * Trulicity 1.5mg SQ weekly HbA1C: ASSESSMENT: 08/24: * Patient received total 51 units of insulin yesterday; 30 units basal and 21 units bolus. * BSGs yesterday were [id number] mg/dl. * Prednisone 5 mg PO daily continues. * Today, will split total daily dose of insulin about 50% basal and 50% bolus. Will continue with 15 units of basal insulin in the morning but reduce HS dose to 5 or 10 units based on BSG at HS. * Novolog parameters continued the same as yesterday 08/23/22: * Patient is a 77yo M POD #0 right sacroiliac joint fusion. History of DM2 on insulin therapy and Trulicity at home. Pharmacy consulted to assist with glycemic management while inpatient. * BSGs 212-213mg/dL pre-op and post-op. Received 4mg IV dex pre-op. Continued on chronic prednisone 5mg daily. * Based upon historical glycemic data, will give Lantus 15 units X 1 now and continue home regimen of 15 units BID. Novolog severe stress scale ACHS and titrate based upon BSGs. PLAN FOR INPATIENT GLYCEMIC CONTROL: * Hold outpatient oral diabetes medications * Basal insulin * Lantus 15 units SQ QAM * Lantus 5-10 units SQ HS based on BSG * Bolus insulin * NovoLog per scale ACHS or Q6hrs while NPO * Goal Range: Low 110 mg/dL - High 140 mg/dL * Correction Factor: 15 mg/dL/unit * Nutritional / Prandial insulin per carb ratio of 1 unit per 5 grams CHO consumed
[2022-08-24 12:13] LABS: Estimated Average Glucose 174 mg/dl; Hemoglobin A1C 7.7 % (4.5-5.6)
[2022-08-24] MEDS: allopurinoL 100 MG TAB PO SCH (20:44)
[2022-08-24] MEDS: CHOLECALCIFEROL 1,000 UNITS 25 MCG TAB PO SCH (20:44)
[2022-08-24] MEDS: ATORVASTATIN 40 MG TAB PO SCH (20:44)
[2022-08-24] MEDS: ENOXAPARIN 100 MG/1ML SYR SQ SCH (20:44)
[2022-08-24] MEDS: DOCUSATE SODIUM/SENNA 50/8.6MG TAB PO SCH (20:44)
[2022-08-24] MEDS: POTASSIUM CHLORIDE CRTAB 20 MEQ TABCR PO SCH (20:44)
[2022-08-24] MEDS: GABAPENTIN 300 MG CAP PO SCH (20:44)
[2022-08-24] MEDS ORDERED: LANTUS PER UNIT CHARGE SC SCH (21:00)
[2022-08-25] MEDS: POLYETHYLENE (MIRALAX) 17 GM PACK PO SCH ×2 (06:07→12:26)
[2022-08-25] MEDS: TOPIRAMATE 100 MG TAB PO SCH (07:39)
[2022-08-25] MEDS: FERROUS SULFATE 325 MG TAB PO SCH (07:39)
[2022-08-25] MEDS: FEXOFENADINE HCL 180 MG TAB PO SCH (07:39)
[2022-08-25] MEDS: CARBIDOPA/LEVODOPA 25/100MG TAB PO SCH (07:39)
[2022-08-25] MEDS: levETIRAcetam 500 MG TAB PO SCH (07:40)
[2022-08-25] MEDS: PANTOprazole 40 MG TAB PO SCH (07:40)
[2022-08-25] MEDS: predniSONE 5 MG TAB PO SCH (07:40)
[2022-08-25] MEDS: CYANOCOBALAMIN (B-12) 500 MCG TABLET PO SCH (07:40)
[2022-08-25] MEDS: MAGNESIUM OXIDE 400 MG TAB PO SCH (07:41)
[2022-08-25] MEDS: FUROSEMIDE 20 MG TAB PO SCH (07:41)
[2022-08-25] MEDS: GABAPENTIN 600 MG TAB PO SCH (07:41)
[2022-08-25] MEDS: ASPIRIN 81 MG ECTAB PO SCH (07:41)
[2022-08-25] MEDS: FINASTERIDE 5 MG TAB PO SCH (07:41)
[2022-08-25] MEDS: ENOXAPARIN 100 MG/1ML SYR SQ SCH (07:42)
[2022-08-25] MEDS: SODIUM CHLORIDE 0.65% NA SOLN 45 ML (OCEAN) SCH ×2 (07:42→12:26)
[2022-08-25] MEDS: UMECLIDINIUM/VILANTEROL 62.5/25MCG 7 PUFFS/INHALER INH SCH (07:42)
[2022-08-25] MEDS: FLUTICASONE FUROATE 100MCG 14 PUFFS/INHALER INH SCH (07:43)
[2022-08-25] MEDS: INSULIN ASPART PER UNIT CHARGE SC SCH ×2 (08:27→12:25)
[2022-08-25] MEDS ORDERED: LANTUS PER UNIT CHARGE SC SCH (09:00)
[2022-08-25] MEDS: oxyCODONE HCL IR 5 MG TAB (IMMEDIATE RELEASE) PO PRN (11:23)
== END 2022-08-25 14:05 | disposition home health service (06) | DRG 460 ==
LOC: ASU 07:31 → 3E 10:21

== ENCOUNTER 2022-09-09 12:09 | Inpatient (IN) ==
[2022-09-09] MEDS ORDERED: levETIRAcetam 1,000 MG in 0.9 % SODIUM CHLORIDE 100 ML IV STA ×2 (12:23→14:38)
[2022-09-09] MEDS ORDERED: LORazepam 2 MG/1 ML VIAL IV STA ×2 (12:24→14:38)
[2022-09-09 12:48] LABS: iSTAT Creatinine 1.7 mg/dl (0.6-1.3); iSTAT Hemoglobin 12.2 g/dl (14.0-18.0); iSTAT Ionized Calcium 1.22 mmol/l (1.12-1.32); iSTAT Potassium 3.8 mmol/L (3.3-5.0)
[2022-09-09 12:51] LABS: Basophils # (auto) 0.07 K/uL (0-0.2); Basophils % (auto) 1.1 %; Eosinophils % (auto) 3.2 %; Hematocrit (blood only) 36.2 % (42.0-52.0); Hemoglobin 11.4 g/dl (14.0-18.0); Immature Granulocytes # (auto) 0.11 K/uL (0.01-0.20); Immature Granulocytes % (auto) 1.8 %; Lymphocytes # (auto) 1.83 K/uL (1.2-3.4); Lymphocytes % (auto) 29.4 %; Mean Corpuscular Hemoglobin 28.3 pg (25.0-34.0); Mean Corpuscular Hgb Conc 31.5 g/dL (32.0-36.0); Mean Corpuscular Volume 89.8 fL (80.0-100.0); Mean Platelet Volume 9.9 fL (9.4-12.4); Monocytes # (auto) 0.44 K/uL (0.11-0.59); Monocytes % (auto) 7.1 %; Neutrophils # (auto) 3.58 K/uL (1.40-6.50); Neutrophils % (auto) 57.4 %; Platelet Count 215 K/uL (130-400); RDW Coefficient of Variation 14.8 % (11.5-14.5); RDW Standard Deviation 48.1 fL (36.4-46.3); Red Blood Count 4.03 M/uL (4.70-6.10); White Blood Count 6.23 K/ul (4.8-10.8)
[2022-09-09 13:05] LABS: Albumin Globulin Ratio 1.4 (0.9-2); Albumin Level 3.9 gm/dl (3.4-5.0); Bilirubin,Total 0.4 mg/dl (0.2-1.0); Calcium 9.3 mg/dl (8.6-10.3); Creatinine Clr Calc Pharmacy 50.6 ml/min; Est GFR (African American) 52.1 ml/min; Globulin 2.7 gm/dl (2.5-4.0); Potassium 3.9 mmol/L (3.5-5.1); Total Protein 6.6 gm/dl (6.0-8.3)
[2022-09-09 13:10] LABS: Troponin I High Sensitivity 10.7 pg/ml (0-20)
[2022-09-09 13:17] LABS: INR 1.3 (0.9-1.1); Prothrombin Time 13.9 Seconds (9.0-12.0)
--- NOTE | 2022-09-09 13:29 | CT Scan Report ---
CT head/brain wo con CLINICAL HISTORY: Trauma, fall, seizures Technique: Contiguous axial CT images of the head were acquired from the base of the skull to the samantha silvio without intravenous contrast administration. Images were viewed in brain, subdural and bone [facility]. Automated dose lowering techniques and/or adjustment according to patient size were utilized for this exam. Comparison: None available at the time of this dictation. Findings: The ventricles, basal cisterns, and cerebral sulci are normal. There is no acute intracranial hemorrh age or evidence of acute territorial infarction. Neither mass effect, shift of the midline structures , nor abnormal extra-axial fluid collections are shown. Imaged portions of the paranasal sinuses and mastoid air cells are clear. The orbits appear normal. There are no acute fractures of the calvaria or scalp swelling. Impression: No acute intracranial hemorrhage, no evidence of acute territorial infarction or other acute intracra nial disease process. ACT 112: Negative or not required by law. Electronically signed by: Russell Sifuentes M.D. 09/09/2022 1:27 PM
--- NOTE | 2022-09-09 13:36 | CT Scan Report ---
CT cervical spine wo con CLINICAL HISTORY: Trauma, fall TECHNIQUE: Multidetector row helical CT of the cervical spine was performed without administration of intravenous contrast. Coronal and sagittal reformations were obtained. Automated dose lowering techn iques and/or adjustment according to patient size were utilized for this exam. Comparison: None available at the time of this dictation. FINDINGS: Anterior cervical fixation hardware is seen spanning L4-L5. Degenerative changes are seen in the visu alized spine. The alignment is normal. Vascular calcifications are seen. IMPRESSION: No evidence of acute bony injury. ACT 112: Negative or not required by law. Electronically signed by: Russell Sifuentes M.D. 09/09/2022 1:33 PM
--- NOTE | 2022-09-09 13:42 | CT Scan Report ---
CT chest diagnostic wo con CLINICAL HISTORY: Trauma, fall TECHNIQUE: Multidetector row helical CT of the chest was performed. Coronal and sagittal reformations were obtained. Automated dose lowering techniques and/or adjustment according to patient size were u tilized for this exam. Comparison: Comparison is made to CT chest 02/26/2022 FINDINGS: Lungs and pleura: Atelectasis versus scarring is seen in the dependent portions of the lungs. A few p ulmonary nodules are seen including a 5 mm nodule in the right upper lobe (series 12 image 104) and 3 mm nodule in the left lower lobe (image 144). Heart and pericardium: Aortic valve prosthesis is seen. Mitral annular calcifications are noted. Vessels: Severe atherosclerotic changes in the aorta and coronary arteries. Mediastinum and vamshi: Unremarkable. Chest wall and lower neck: Unremarkable. Abdomen: For findings below the diaphragm, please refer to CT of the abdomen dated the same. Bones: Degenerative changes in the thoracic spine. IMPRESSION: 1. Degenerative changes without evidence of acute fracture. 2. Small pulmonary nodules as above. According to Fleischner criteria, no follow-up is required in l ow risk patients, in high-risk patients, a 12 month follow-up CT can be optionally performed. 3. Status post aortic valvular prosthesis. ACT 112: Negative or not required by law. Electronically signed by: Russell Sifuentes M.D. 09/09/2022 1:39 PM
--- NOTE | 2022-09-09 13:57 | CT Scan Report ---
CT abd pelvis wo con CLINICAL HISTORY: Trauma, fall TECHNIQUE: Helical axial images of the abdomen and pelvis were obtained. Automated dose lowering tech niques and/or adjustment according to patient size were utilized for this exam. This exam was perfor med without intravenous contrast. COMPARISON: Comparison is made to CT abdomen pelvis 05/21/2022 FINDINGS: Lower chest: For findings above the diaphragm, please see CT chest performed same day. Liver: Unremarkable. No focal lesions are seen. Gallbladder and biliary tree: Patient is status post cholecystectomy. No intra- or extrahepatic bilia ry ductal dilation. Pancreas: Fatty replacement of the pancreas is seen. Spleen: Unremarkable. Adrenals: Unremarkable. Kidneys and ureters: Perinephric stranding is noted bilaterally. Bladder: Unremarkable. Reproductive organs: Prostatic calcifications are seen which may represent prior hemorrhage or granul omatous disease. Bowel: Diverticulosis is seen without evidence of diverticulitis. A lap band is noted in the gastroes ophageal junction with a small hiatal hernia. Lymph nodes Retroperitoneal: Unremarkable. Pelvic: Unremarkable. Mesenteric: Unremarkable. Peritoneum: Normal. Vessels: Atherosclerotic calcifications are seen. Abdominal wall: Unremarkable. Bones: Degenerative changes are seen in the spine. Posterior fixation hardware spans L3-S1. IMPRESSION: No acute abnormalities and in particular no evidence of acute fracture. Additional findings as above. ACT 112: Negative or not required by law. Electronically signed by: Russell Sifuentes M.D. 09/09/2022 1:54 PM
[2022-09-09 14:17] LABS: Partial Thromboplastin Time 28.5 Seconds (21.0-31.0)
--- NOTE | 2022-09-09 14:24 | Emergency Department Note ---
Impression & Plan Fall, Seizure-like activity, Subtherapeutic anticoagulation, Mechanical heart valve present ED Provider Note Provider: Deven Davis MD DATE OF SERVICE: 09/09/2022 CHIEF COMPLAINT: Fall HISTORY OF PRESENT ILLNESS: Patient is a 77-year-old gentleman history of CAD, CKD, prostate cancer, mechanical heart valve on warfarin [place] [facility] [place] [facility]. Via ambulance. Patient evidently fell this morning stating he turned and he tripped with his left toe onto the floor. Struck the left side of his body his left head. Denies LOC. Could not get up. Laid on the ground for several hours. Blood work here without evidence of rhabdomyolysis. Upon arrival here at the hospital however just after EMS left the patient had a brief 1 to 2-minute seizure event. Patient reports he has been weaning his Keppra in discussion with [facility] neurology group. 500 mg in the morning and 1000 mg at night according to him. PAST MEDICAL HISTORY: As noted above MEDICATIONS: Reviewed home medication list SOCIAL HISTORY: Lives at the [facility] assisted living PHYSICAL EXAM: GENERAL: alert and oriented in no acute distress on stretcher Head: normocephalic and atraumatic EYES: No injection, discharge or icterus. PERRL, EOMI. NECK: Trachea midline. Supple without midline cervical tenderness ENT: Mucous membranes pink and moist. Pharynx without erythema or exudate. LUNGS: Airway patent. No retractions. Breath sounds clear with good air entry bilaterally. HEART: Regular rate and rhythm. No chest wall tenderness ABDOMEN: Soft and non-tender, without guarding or rebound. BACK: No bilateral flank tenderness. SKIN: Acyanotic, warm, dry, without rashes EXTREMITIES: Without tenderness or deformity with trace bilateral pedal edema. NEUROLOGICAL: No focal deficits. No aphasia. No facial droop or slurred speech. Normal strength and tone in the extremities. Sensation to gross touch normal. EK bpm appears to be in normal sinus rhythm with some baseline artifact. No acute ST segment elevation noted with a QTc of 431. CONTINUOUS CARDIAC MONITORING: was ordered and showed a heart rate of 70s-90s bpm in normal sinus rhythm with occasional artifact GCS 15. Patient's laboratory studies and imaging reviewed. Differential includes Epilepsy, infection, hypoglycemia, electrolyte abnormalities, cardiac sources, intracerebral event, trauma, toxicologic, neurologic, syncope, as well as other pathologies. IMPRESSION/MEDICAL DECISION MAKING: With seizure upon arrival, patient quickly terminated himself and was given a small amount of half a milligram IV Ativan. Discussed with him and he states he did not take his morning medication. Given a gram of IV Keppra. Blood work obtained. Denies any severe pain in his body or extremities other than a little bit of left head pain. States his INR was recently about 3 several days ago. Patient denies recent illness. Blood work here is reassuring with very slight anemia and a very minimal lactate elevation here likely related to the brief seizure. No evidence of liver dysfunction or heart insult. Negative COVID testing. CT scans completed of the head, cervical spine, chest and pelvis without contrast given his allergy profile. No significant findings per radiology in particular no evidence of significant fracture or intracranial bleeding. INR subtherapeutic. This is a concern given his mechanical heart valve. Discussed with pharmacy and put on a heparin drip and will need bridging with his Coumadin to therapeutic level. Given this discussed with him need to stay for further evaluation. Contacted the hospitalist group. During this time the patient had another 1 to 2-minute brief seizure episode. Terminated with a milligram of IV Ativan here. Patient with very brief postictal period and awake and talking. Given additional gram of Keppra and ordered his home dose of Topamax which she did not take this morning either. Hospitalist team aware of this. Patient has been weaning his Keppra down to 500 in the morning and 1000 mg at night with the [facility] neurology group over the past month. DIAGNOSIS: Fall, seizures, subtherapeutic INR with mechanical heart valve DISPOSITION: Hospitalist will evaluate Patient was agreeable with this plan. Critical Care I have personally spent 34 minutes of critical care time in the direct management of this patient. This includes bedside care, interpretation of diagnostic studies, and testing, discussion with consultants, patient, and other required patient management activities. These 34 minutes is in excess of all separately billable procedures. Past Med/Surg History Medical History Anemia history of blood transfusion, 2020 Anxiety Aortic ectasia, thoracic Aspiration pneumonia hx of--per pt was due to pain medications Asthma inhaler daily and prn CAD (coronary artery disease) follows with Dr. Chau Chronic dyspnea Chronic kidney disease, stage 3a Chronic pulmonary aspiration Chronic respiratory failure with hypoxia Chronic use of steroids Constipated Current use of shelter anticoagulation warfarin daily Depression Diabetes IDDM Diabetic peripheral neuropathy Dysphagia Edema Generalized weakness Gout Hearing deficit Heart failure > 70% History of seizures last 2019--on Keppra/Topiramate--follows with Dr. Sheikh HLD (hyperlipidemia) Hypokalemia Idiopathic polyneuropathy Interstitial lung disease due to connective tissue disease inhaler daily and prn and uses 2L N/C at hs Migraine Neck pain Neurogenic claudication due to lumbar spinal stenosis On home oxygen therapy 2L at hs Pancytopenia Parkinsonism per pt has a difficulty swallowing, states certain foods can be difficult to eat Pneumonia hx of, per pt last admission @ [facility] was 05/2022 Polymyositis Prostate cancer radiation Rheumatoid arthritis Shortness of breath per pt on with exertion Somatic dysfunction of cervical region Stroke-like symptom 12/2019, w/ blurry vision and dysarthria. mild R sided wkness. attending outpatient physical therapy w/ good improvement in strength (5+/5 strength of all 4 extremities as of 05/28/20) Supratherapeutic INR Thoracic ascending aortic aneurysm s/p repair TIA (transient ischemic attack) 2019--no deficits--follows with Dr. Sheikh Surgical History H/O hernia repair History of aortic valve replacement 2003 @ [facility] in [place], [place] History of appendectomy History of bilateral cataract extraction History of cardiac cath x3--2017 @ [facility] with 1 stent placed/2019 @ [facility]/last 04/2021 @ [facility] History of cholecystectomy History of colonoscopy History of esophagogastroduodenoscopy (EGD) History of fusion of cervical spine normal ROM History of gastric bypass 2008--lap band History of heart artery stent x1--2018 @ [facility] History of lumbar spinal fusion History of lung biopsy 2019 History of partial nephrectomy 1986 on right kidney History of prostate biopsy malignant History of tonsillectomy History of tooth extraction all upper teeth removed Family History Mother , age 87 of pulmonary issues Rheumatoid arthritis Father , in his mid 80s of a stroke Stroke Other Coronary heart disease No family history of adverse response to anesthesia Social History Smoking Status: Never smoker Second Hand Exposure: No; Do You Dip or Chew Tobacco: No; Hx Alcohol Use: No Hx Substance Use: No Preferred Language: Vietnamese Communication Ability: Effective Hearing Ability: Hard of Hearing 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 Required: No Beliefs That Will Affect Care: None marital status: / Current Living Situation: Alone Current Living Situation Comment: lives at the [facility] current occupational status: retired 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 How many Children do You have: 2 How many Children do You have Comment: son Feels Safe at Home: Yes Assistive Devices: Oxygen - at Night and Walker Allergies Allergies Allergy/AdvReac Type Severity Reaction Status Date / Time bee venom protein (honey bee) Allergy Severe anaphylaxis Verified 09/09/22 15:26 Iodinated Contrast Media Allergy Severe Anaphylaxis Verified 09/09/22 15:26 shellfish derived Allergy Severe Anaphylaxis Verified 09/09/22 15:26 doxazosin Allergy Intermediate Rash Verified 09/09/22 15:26 tamsulosin [From Flomax] Allergy Intermediate Itching Verified 09/09/22 15:26 Tetanus Vaccines and Toxoid Allergy Unknown Unknown Verified 09/09/22 15:26 lamotrigine AdvReac Intermediate Confusion Verified 09/09/22 15:26 oxycodone [From Percocet] AdvReac Intermediate nausea/vomi Verified 09/09/22 15:26 ting propoxyphene [From Darvon] AdvReac Intermediate nausea/vomi Verified 09/09/22 15:26 ting Home Meds Home Medications Medication Instructions Recorded Confirmed atorvastatin 40 mg tablet 40 mg PO HS 05/28/20 09/09/22 fexofenadine 180 mg tablet 180 mg PO QAM 02/11/21 09/09/22 (Karlee Allergy) allopurinol 100 mg tablet 100 mg PO HS 04/10/21 09/09/22 cholecalciferol (vitamin D3) 50 4,000 unit PO HS 07/14/21 09/09/22 mcg (2,000 unit) capsule (Vitamin D3) insulin glargine 100 unit/mL (3 15 unit subcut BID 07/26/21 09/09/22 mL) subcutaneous pen (Lantus Solostar U-100 Insulin) albuterol sulfate 90 mcg/actuation 2 puff inhalation Q4H PRN 09/27/21 09/09/22 aerosol inhaler (Ventolin HFA) Shortness Of Breath Or Wheezing polyethylene glycol 3350 17 17 g PO BID PRN Constipation 10/04/21 09/09/22 gram/dose oral powder (Miralax) furosemide 20 mg tablet 20 mg PO QAM 11/24/21 09/09/22 sennosides 8.6 mg tablet (Senokot) 17.2 mg PO QAM 11/24/21 09/09/22 warfarin 5 mg tablet See Rx Instructions .Route .COMPLEX 11/24/21 09/09/22 insulin aspart U-100 100 unit/mL 1 sliding scale dose subcut ACHS 02/26/22 09/09/22 (3 mL) subcutaneous pen (Novolog FlexPen U-100 Insulin aspart) diclofenac sodium 1 % topical gel 2 g topical DAILY 05/21/22 09/09/22 (Voltaren Arthritis Pain) cyanocobalamin (vitamin B-12) 1,000 mcg PO QAM 08/14/22 09/09/22 1,000 mcg tablet,extended release (Vitamin B-12 ER) gabapentin 300 mg capsule 300 - 600 mg PO BID 08/14/22 09/09/22 magnesium 250 mg tablet 250 mg PO QAM 08/14/22 09/09/22 pantoprazole 20 mg tablet,delayed 20 mg PO QAM 08/14/22 09/09/22 release (Protonix) potassium chloride 20 mEq 20 meq PO HS 08/14/22 09/09/22 tablet,extended release prednisone 5 mg tablet 5 mg PO QAM 08/14/22 09/09/22 carbidopa 25 mg-levodopa 100 mg 1 tab PO TID 08/23/22 09/09/22 tablet (Sinemet) finasteride 5 mg tablet (Proscar) 5 mg PO QAM 08/23/22 09/09/22 Previous Rx's Medication Instructions Recorded acetaminophen 325 mg tablet 650 mg PO Q4H PRN pain #30 tabs 08/04/21 aspirin 81 mg tablet,delayed 81 mg PO QAM #30 tabs 08/04/21 release fluticasone fur. 100 mcg-umeclid 1 inh inhalation QAM #60 ea 05/10/22 62.5 mcg-vilant 25 mcg inhalat.powder (Trelegy Ellipta) topiramate 100 mg tablet (Topamax) 100 mg PO BID 30 days #180 tabs 12/29/21 ferrous sulfate 325 mg (65 mg 325 mg PO QAM #30 tabs 05/26/22 iron) tablet,delayed release sodium chloride 0.65 % nasal spray 2 spray NA QID #10 mL 05/26/22 aerosol (Saline Mist) levetiracetam 500 mg tablet 1,000 mg PO BID #360 tabs 08/03/22 (Keppra) ondansetron 4 mg disintegrating 4 mg PO Q6H PRN nausea and 08/24/22 tablet vomiting #30 tabs oxycodone 5 mg tablet 5 mg PO DAILY PRN pain #20 tabs 08/24/22 tramadol 50 mg tablet 50 mg PO Q6H PRN pain, moderate 08/24/22 #30 tabs Results & Data (ED) Vital Signs Vital Signs - 24 hr 09/09/22 12:09 09/09/22 12:23 09/09/22 12:33 Temperature 37 C Temperature Source Oral Pulse Rate 78 77 77 Pulse Rate from SpO2 Sensor Pulse Rhythm Regular Respiratory Rate 18 18 Respiratory Effort / Characteristics Non-Labored Respiratory Depth Normal Respiratory Pattern Regular Blood Pressure 166/85 H Blood Pressure Mean 112 Pulse Oximetry 100 100 Oxygen Delivery Method Room Air Room Air Sepsis Recent Fever Within 48 Hours No Sepsis New/Unexplained Change in Mental Status N/A Sepsis Action Taken by Nursing No Action Required 09/09/22 14:00 09/09/22 15:00 09/09/22 15:30 Temperature Temperature Source Pulse Rate 80 74 68 Pulse Rate from SpO2 Sensor 74 69 Pulse Rhythm Respiratory Rate 19 14 17 Respiratory Effort / Characteristics Respiratory Depth Respiratory Pattern Blood Pressure 122/74 113/73 124/76 Blood Pressure Mean 90 86 92 Pulse Oximetry 95 94 99 Oxygen Delivery Method Room Air Room Air Room Air Sepsis Recent Fever Within 48 Hours Sepsis New/Unexplained Change in Mental Status Sepsis Action Taken by Nursing Laboratory Data 09/09/22 12:31 09/09/22 12:31 Lab Results 09/09/22 09/09/22 09/09/22 Range/Units 12:31 12:31 12:31 WBC 6.23 (4.8-10.8) K/ul RBC 4.03 L (4.70-6.10) M/uL Hgb 11.4 L (14.0-18.0) g/dl POC Hgb (14.0-18.0) g/dl Hct 36.2 L (42.0-52.0) % POC Hct (42-52) % MCV 89.8 (80.0-100.0) fL MCH 28.3 (25.0-34.0) pg MCHC 31.5 L (32.0-36.0) g/dL RDW Std Deviation 48.1 H (36.4-46.3) fL RDW Coeff of Lianne 14.8 H (11.5-14.5) % Plt Count 215 (130-400) K/uL MPV 9.9 (9.4-12.4) fL Immature Gran % (Auto) 1.8 % Neut % (Auto) 57.4 % Lymph % (Auto) 29.4 % Cannon % (Auto) 7.1 % Eos % (Auto) 3.2 % Baso % (Auto) 1.1 % Neut # (Auto) 3.58 (1.40-6.50) K/uL Lymph # (Auto) 1.83 (1.2-3.4) K/uL Cannon # (Auto) 0.44 (0.11-0.59) K/uL Eos # (Auto) 0.20 (0-0.50) K/uL Baso # (Auto) 0.07 (0-0.2) K/uL Immature Gran # (Auto) 0.11 (0.01-0.20) K/uL PT 13.9 H (9.0-12.0) Seconds INR 1.3 H (0.9-1.1) APTT (21.0-31.0) Seconds PTT Ratio POC Sodium (135-144) mmol/L Sodium 139 (136-145) mmol/L POC Potassium (3.3-5.0) mmol/L Potassium 3.9 (3.5-5.1) mmol/L POC Chloride (101-112) mmol/L Chloride 105 (98-107) mmol/L Carbon Dioxide 26 (21-32) mmol/L POC Total CO2 (24-31) mmol/L Anion Gap 8 (3-11) POC Anion Gap (16-25) mmol/L POC BUN (7-18) mg/dl BUN 34 H (6-23) mg/dl Creatinine 1.48 H (0.6-1.4) mg/dl POC Creatinine (0.6-1.3) mg/dl Est Cr Clr Drug Dosing 50.6 ml/min Est GFR ( Amer) 52.1 ml/min Est GFR (Non-Af Amer) 45.0 ml/min BUN/Creatinine Ratio 23.0 H (10-20) Glucose 92 (70-99(Fasting)) mg/dl POC Glucose (other) (70-99) mg/dl Lactate (0.4-2.0) mmol/L Calcium 9.3 (8.6-10.3) mg/dl POC Ioniz Calcium Dewey (1.12-1.32) mmol/l Total Bilirubin 0.4 (0.2-1.0) mg/dl AST 26 (13-39) U/L ALT 24 (7-52) U/L Alkaline Phosphatase 94 (34-104) U/L Total Creatine Kinase 88 (30-223) U/L Troponin I High Sens 10.7 (0-20) pg/ml Total Protein 6.6 (6.0-8.3) gm/dl Albumin 3.9 (3.4-5.0) gm/dl Globulin 2.7 (2.5-4.0) gm/dl Albumin/Globulin Ratio 1.4 (0.9-2) Urine Color Urine Appearance (Clear) Urine pH (4.5-7.5) Ur Specific [place] (1.000-1.030) Urine Protein (Negative) Urine Glucose (UA) (Negative) Urine Ketones (Negative) Urine Blood (Negative) Urine Nitrite (Negative) Urine Bilirubin (Negative) Urine Urobilinogen (Negative) Ur Leukocyte Esterase (Negative) Urine WBC (Auto) (0-5) /hpf Urine RBC (Auto) (0-4) /hpf U Hyaline Cast (Auto) (0-5) /lpf U Epithel Cells (Auto) (0-5) /lpf Urine Bacteria (Auto) (Negative) SARS-CoV-2, RNA, NAAT (NEGATIVE) 09/09/22 09/09/22 09/09/22 Range/Units 12:31 12:35 12:41 WBC (4.8-10.8) K/ul RBC (4.70-6.10) M/uL Hgb (14.0-18.0) g/dl POC Hgb 12.2 L (14.0-18.0) g/dl Hct (42.0-52.0) % POC Hct 36 L (42-52) % MCV (80.0-100.0) fL MCH (25.0-34.0) pg MCHC (32.0-36.0) g/dL RDW Std Deviation (36.4-46.3) fL RDW Coeff of Lianne (11.5-14.5) % Plt Count (130-400) K/uL MPV (9.4-12.4) fL Immature Gran % (Auto) % Neut % (Auto) % Lymph % (Auto) % Cannon % (Auto) % Eos % (Auto) % Baso % (Auto) % Neut # (Auto) (1.40-6.50) K/uL Lymph # (Auto) (1.2-3.4) K/uL Cannon # (Auto) (0.11-0.59) K/uL Eos # (Auto) (0-0.50) K/uL Baso # (Auto) (0-0.2) K/uL Immature Gran # (Auto) (0.01-0.20) K/uL PT (9.0-12.0) Seconds INR (0.9-1.1) APTT 28.5 (21.0-31.0) Seconds PTT Ratio 1.0 POC Sodium 140 (135-144) mmol/L Sodium (136-145) mmol/L POC Potassium 3.8 (3.3-5.0) mmol/L Potassium (3.5-5.1) mmol/L POC Chloride 104 (101-112) mmol/L Chloride (98-107) mmol/L Carbon Dioxide (21-32) mmol/L POC Total CO2 24 (24-31) mmol/L Anion Gap (3-11) POC Anion Gap 17.0 (16-25) mmol/L POC BUN 30 H (7-18) mg/dl BUN (6-23) mg/dl Creatinine (0.6-1.4) mg/dl POC Creatinine 1.7 H (0.6-1.3) mg/dl Est Cr Clr Drug Dosing ml/min Est GFR ( Amer) ml/min Est GFR (Non-Af Amer) ml/min BUN/Creatinine Ratio (10-20) Glucose (70-99(Fasting)) mg/dl POC Glucose (other) 94 (70-99) mg/dl Lactate (0.4-2.0) mmol/L Calcium (8.6-10.3) mg/dl POC Ioniz Calcium Dewey 1.22 (1.12-1.32) mmol/l Total Bilirubin (0.2-1.0) mg/dl AST (13-39) U/L ALT (7-52) U/L Alkaline Phosphatase (34-104) U/L Total Creatine Kinase (30-223) U/L Troponin I High Sens (0-20) pg/ml Total Protein (6.0-8.3) gm/dl Albumin (3.4-5.0) gm/dl Globulin (2.5-4.0) gm/dl Albumin/Globulin Ratio (0.9-2) Urine Color Urine Appearance (Clear) Urine pH (4.5-7.5) Ur Specific [place] (1.000-1.030) Urine Protein (Negative) Urine Glucose (UA) (Negative) Urine Ketones (Negative) Urine Blood (Negative) Urine Nitrite (Negative) Urine Bilirubin (Negative) Urine Urobilinogen (Negative) Ur Leukocyte Esterase (Negative) Urine WBC (Auto) (0-5) /hpf Urine RBC (Auto) (0-4) /hpf U Hyaline Cast (Auto) (0-5) /lpf U Epithel Cells (Auto) (0-5) /lpf Urine Bacteria (Auto) (Negative) SARS-CoV-2, RNA, NAAT NEGATIVE (NEGATIVE) 09/09/22 09/09/22 Range/Units 12:49 15:12 WBC (4.8-10.8) K/ul RBC (4.70-6.10) M/uL Hgb (14.0-18.0) g/dl POC Hgb (14.0-18.0) g/dl Hct (42.0-52.0) % POC Hct (42-52) % MCV (80.0-100.0) fL MCH (25.0-34.0) pg MCHC (32.0-36.0) g/dL RDW Std Deviation (36.4-46.3) fL RDW Coeff of Lianne (11.5-14.5) % Plt Count (130-400) K/uL MPV (9.4-12.4) fL Immature Gran % (Auto) % Neut % (Auto) % Lymph % (Auto) % Cannon % (Auto) % Eos % (Auto) % Baso % (Auto) % Neut # (Auto) (1.40-6.50) K/uL Lymph # (Auto) (1.2-3.4) K/uL Cannon # (Auto) (0.11-0.59) K/uL Eos # (Auto) (0-0.50) K/uL Baso # (Auto) (0-0.2) K/uL Immature Gran # (Auto) (0.01-0.20) K/uL PT (9.0-12.0) Seconds INR (0.9-1.1) APTT (21.0-31.0) Seconds PTT Ratio POC Sodium (135-144) mmol/L Sodium (136-145) mmol/L POC Potassium (3.3-5.0) mmol/L Potassium (3.5-5.1) mmol/L POC Chloride (101-112) mmol/L Chloride (98-107) mmol/L Carbon Dioxide (21-32) mmol/L POC Total CO2 (24-31) mmol/L Anion Gap (3-11) POC Anion Gap (16-25) mmol/L POC BUN (7-18) mg/dl BUN (6-23) mg/dl Creatinine (0.6-1.4) mg/dl POC Creatinine (0.6-1.3) mg/dl Est Cr Clr Drug Dosing ml/min Est GFR ( Amer) ml/min Est GFR (Non-Af Amer) ml/min BUN/Creatinine Ratio (10-20) Glucose (70-99(Fasting)) mg/dl POC Glucose (other) (70-99) mg/dl Lactate 2.1 H* (0.4-2.0) mmol/L Calcium (8.6-10.3) mg/dl POC Ioniz Calcium Dewey (1.12-1.32) mmol/l Total Bilirubin (0.2-1.0) mg/dl AST (13-39) U/L ALT (7-52) U/L Alkaline Phosphatase (34-104) U/L Total Creatine Kinase (30-223) U/L Troponin I High Sens (0-20) pg/ml Total Protein (6.0-8.3) gm/dl Albumin (3.4-5.0) gm/dl Globulin (2.5-4.0) gm/dl Albumin/Globulin Ratio (0.9-2) Urine Color Yellow Urine Appearance Cloudy A (Clear) Urine pH 8.5 H (4.5-7.5) Ur Specific [place] 1.010 (1.000-1.030) Urine Protein Negative (Negative) Urine Glucose (UA) Negative (Negative) Urine Ketones Negative (Negative) Urine Blood Negative (Negative) Urine Nitrite Negative (Negative) Urine Bilirubin Negative (Negative) Urine Urobilinogen Negative (Negative) Ur Leukocyte Esterase Negative (Negative) Urine WBC (Auto) 1-5 (0-5) /hpf Urine RBC (Auto) 0-4 (0-4) /hpf U Hyaline Cast (Auto) 1-5 (0-5) /lpf U Epithel Cells (Auto) 0-5 (0-5) /lpf Urine Bacteria (Auto) Negative (Negative) SARS-CoV-2, RNA, NAAT (NEGATIVE) Administered Medications Heparin Sodium/Dextrose (Heparin Sodium/Dextrose) 25,000 units in 500 mls @ 31 mls/hr IV .[id number] [facility]; Protocol Stop: 10/09/22 14:59 Last Admin: 09/09/22 15:46 Dose: 1,550 units/hr, 31 mls/hr Documented By: MATTHEW Co-signed By: RIA Discontinued Medications Heparin Sodium (Porcine) (Heparin Sod (Porcine) 1000 Unit/Ml) 1 units IV NOW ONE Stop: 09/09/22 14:54 Last Admin: 09/09/22 15:44 Dose: Not Given Documented By: RIA Heparin Sodium (Porcine) (Heparin Sod (Porcine) 1000 Unit/Ml) 7,000 units IV NOW ONE Stop: 09/09/22 15:31 Last Admin: 09/09/22 15:44 Dose: Not Given Documented By: RIA Heparin Sodium (Porcine) (Heparin Sod (Porcine) 1000 Unit/Ml 10 Ml Vial) 5,000 units IV ONCE ONE Stop: 09/09/22 15:43 Last Admin: 09/09/22 15:48 Dose: 5,000 units Documented By: MATTHEW Co-signed By: RIA Levetiracetam 1,000 mg/ Sodium (Chloride) 110 mls @ 440 mls/hr IV NOW STA Stop: 09/09/22 12:37 Last Infusion: 09/09/22 13:13 Dose: 0 mls/hr Documented By: Admin: 09/09/22 12:40 Dose: 440 mls/hr Documented By: RIA Levetiracetam 1,000 mg/ Sodium (Chloride) 110 mls @ 440 mls/hr IV NOW STA Stop: 09/09/22 14:52 Last Infusion: 09/09/22 15:43 Dose: 0 mls/hr Documented By: Admin: 09/09/22 15:27 Dose: 440 mls/hr Documented By: MATTHEW Lorazepam (Lorazepam 2 Mg/1 Ml Vial) 0.5 mg IV NOW STA Stop: 09/09/22 12:25 Last Admin: 09/09/22 12:39 Dose: 0.5 mg Documented By: RIA Lorazepam (Lorazepam 2 Mg/1 Ml Vial) 1 mg IV NOW STA Stop: 09/09/22 14:39 Last Admin: 09/09/22 14:40 Dose: 1 mg Documented By: RIA Lorazepam (Lorazepam 2 Mg/1 Ml Vial) Confirm Administered Dose 2 mg .ROUTE .STK- MED ONE Stop: 09/09/22 14:39 Last Admin: 09/09/22 14:48 Dose: Not Given Documented By: RIA Topiramate (Topiramate 100 Mg Tab) 100 mg PO ONCE ONE Stop: 09/09/22 14:45 Last Admin: 09/09/22 15:27 Dose: 100 mg Documented By: MATTHEW Imaging Data Radiologist's Impression: Abdomen/Pelvis CT 09/09/22 12:23 CT abd pelvis wo con CLINICAL HISTORY: Trauma, fall TECHNIQUE: Helical axial images of the abdomen and pelvis were obtained. Automated dose lowering techniques and/or adjustment according to patient size were utilized for this exam. This exam was performed without intravenous contrast. COMPARISON: Comparison is made to CT abdomen pelvis 05/21/2022 FINDINGS: Lower chest: For findings above the diaphragm, please see CT chest performed same day. Liver: Unremarkable. No focal lesions are seen. Gallbladder and biliary tree: Patient is status post cholecystectomy. No intra- or extrahepatic biliary ductal dilation. Pancreas: Fatty replacement of the pancreas is seen. Spleen: Unremarkable. Adrenals: Unremarkable. Kidneys and ureters: Perinephric stranding is noted bilaterally. Bladder: Unremarkable. Reproductive organs: Prostatic calcifications are seen which may represent prior hemorrhage or granulomatous disease. Bowel: Diverticulosis is seen without evidence of diverticulitis. A lap band is noted in the gastroesophageal junction with a small hiatal hernia. Lymph nodes Retroperitoneal: Unremarkable. Pelvic: Unremarkable. Mesenteric: Unremarkable. Peritoneum: Normal. Vessels: Atherosclerotic calcifications are seen. Abdominal wall: Unremarkable. Bones: Degenerative changes are seen in the spine. Posterior fixation hardware spans L3-S1. IMPRESSION: No acute abnormalities and in particular no evidence of acute fracture. Additional findings as above. ACT 112: Negative or not required by law. Electronically signed by: Russell Sifuentes M.D. 09/09/2022 1:[address] 09/09/22 12:23 CT cervical spine wo con CLINICAL HISTORY: Trauma, fall TECHNIQUE: Multidetector row helical CT of the cervical spine was performed without administration of intravenous contrast. Coronal and sagittal reformations were obtained. Automated dose lowering techniques and/or adjustment according to patient size were utilized for this exam. Comparison: None available at the time of this dictation. FINDINGS: Anterior cervical fixation hardware is seen spanning L4-L5. Degenerative changes are seen in the visualized spine. The alignment is normal. Vascular calcifications are seen. IMPRESSION: No evidence of acute bony injury. ACT 112: Negative or not required by law. Electronically signed by: Russell Sifuentes M.D. 09/09/2022 1:[address] 09/09/22 12:23 CT chest diagnostic wo con CLINICAL HISTORY: Trauma, fall TECHNIQUE: Multidetector row helical CT of the chest was performed. Coronal and sagittal reformations were obtained. Automated dose lowering techniques and/or adjustment according to patient size were utilized for this exam. Comparison: Comparison is made to CT chest 02/26/2022 FINDINGS: Lungs and pleura: Atelectasis versus scarring is seen in the dependent portions of the lungs. A few pulmonary nodules are seen including a 5 mm nodule in the right upper lobe (series 12 image [id number]) and 3 mm nodule in the left lower lobe (i mage 144). Heart and pericardium: Aortic valve prosthesis is seen. Mitral annular calcifications are noted. Vessels: Severe atherosclerotic changes in the aorta and coronary arteries. Mediastinum and vamshi: Unremarkable. Chest wall and lower neck: Unremarkable. Abdomen: For findings below the diaphragm, please refer to CT of the abdomen dated the same. Bones: Degenerative changes in the thoracic spine. IMPRESSION: 1. Degenerative changes without evidence of acute fracture. 2. Small pulmonary nodules as above. According to Fleischner criteria, no follow-up is required in low risk patients, in high-risk patients, a 12 month follow-up CT can be optionally performed. 3. Status post aortic valvular prosthesis. ACT 112: Negative or not required by law. Electronically signed by: Russell Sifuentes M.D. 09/09/2022 1:[address] 09/09/22 12:23 CT head/brain wo con CLINICAL HISTORY: Trauma, fall, seizures Technique: Contiguous axial CT images of the head were acquired from the base of the skull to the vertex without intravenous contrast administration. Images were viewed in brain, subdural and bone windows. Automated dose lowering techniques and/or adjustment according to patient size were utilized for this exam. Comparison: None available at the time of this dictation. Findings: The ventricles, basal cisterns, and cerebral sulci are normal. There is no acute intracranial hemorrhage or evidence of acute territorial infarction. Neither mass effect, shift of the midline structures, nor abnormal extra-axial fluid collections are shown. Imaged portions of the paranasal sinuses and mastoid air cells are clear. The orbits appear normal. There are no acute fractures of the calvaria or scalp swelling. Impression: No acute intracranial hemorrhage, no evidence of acute territorial infarction or other acute intracranial disease process. ACT 112: Negative or not required by law. Electronically signed by: Russell Sifuentes M.D. 09/09/2022 1:27 PM Discharge Plan Visit Data Chief Complaint: Fall Stated Complaint: FALL/HEAD INJURY ED Provider: Deven Davis Discharge Problem: Fall, Seizure-like activity, Subtherapeutic anticoagulation, Mechanical heart valve present Patient Disposition: Being Evaluated by Hospitalist Forms Stand Alone Forms: AVOB Prescriptions Prescriptions: No Action Trelegy Ellipta 100-62.5-25 mcg blister with device 1 inh inhalation QAM Qty: 60 5RF levetiracetam [Keppra] 500 mg tablet 1,000 mg PO BID Qty: 360 3RF topiramate [Topamax] 100 mg tablet 100 mg PO BID 30 Days Qty: 180 4RF cholecalciferol (vitamin D3) [Vitamin D3] 50 mcg (2,000 unit) capsule 4,000 unit PO HS atorvastatin 40 mg tablet 40 mg PO HS fexofenadine [Karlee Allergy] 180 mg Tablet 180 mg PO QAM acetaminophen 325 mg Tablet 650 mg PO Q4H PRN (Reason: pain) Qty: 30 0RF Rx Instructions: OTC aspirin 81 mg Tablet,Delayed Release (Dr/Ec) 81 mg PO QAM Qty: 30 0RF Rx Instructions: OTC albuterol sulfate [Ventolin HFA] 90 mcg/actuation HFA aerosol inhaler 2 puff INHALATION Q4H PRN (Reason: Shortness Of Breath Or Wheezing) diclofenac sodium [Voltaren Arthritis Pain] 1 % Gel 2 g TOPICAL DAILY Rx Instructions: left knee ferrous sulfate 325 mg (65 mg iron) Tablet,Delayed Release (Dr/Ec) 325 mg PO QAM Qty: 30 0RF Saline Mist 0.65 % Aerosol,Bertrand 2 spray NA QID Qty: 10 0RF prednisone 5 mg Tablet 5 mg PO QAM gabapentin 300 mg capsule 300 - 600 mg PO BID Rx Instructions: 600mg in am/300mg in am pantoprazole [Protonix] 20 mg Tablet,Delayed Release (Dr/Ec) 20 mg PO QAM potassium chloride 20 mEq Tablet Extended Release 20 meq PO HS cyanocobalamin (vitamin B-12) [Vitamin B-12] 1,000 mcg Tablet Extended Release 1,000 mcg PO QAM magnesium 250 mg Tablet 250 mg PO QAM carbidopa-levodopa [Sinemet] 25-100 mg tablet 1 tab PO TID finasteride [Proscar] 5 mg tablet 5 mg PO QAM tramadol 50 mg tablet 50 mg PO Q6H PRN (Reason: pain, moderate) Qty: 30 0RF ondansetron 4 mg tablet,disintegrating 4 mg PO Q6H PRN (Reason: nausea and vomiting) Qty: 30 0RF oxycodone 5 mg tablet 5 mg PO DAILY PRN (Reason: pain) Qty: 20 0RF allopurinol 100 mg tablet 100 mg PO HS insulin glargine [Lantus Solostar U-100 Insulin] 100 unit/mL (3 mL) insulin pen 15 unit SUBCUT BID polyethylene glycol 3350 [Miralax] 17 gram/dose powder 17 g PO BID PRN (Reason: Constipation) furosemide 20 mg tablet 20 mg PO QAM sennosides [Senokot] 8.6 mg tablet 17.2 mg PO QAM warfarin 5 mg tablet See Rx Instructions .ROUTE .COMPLEX Rx Instructions: TAKES 10 MG ON SUN, MON, WED, FRI & SAT EVENINGS, THEN 7.5 MG ON & TH EVENINGS. insulin aspart U-100 [Novolog FlexPen U-100 Insulin] 100 unit/mL (3 mL) insulin pen 1 sliding scale dose subcut ACHS Rx Instructions: supplemental scale for meal-time coverage and bed-time coverage. Referrals Referrals: Josemanuel Melo MD [Primary Care Provider] - Fall Qualifiers: Encounter type: initial encounter Qualified Code(s): W19.XXXA - Unspecified fall, initial encounter
[2022-09-09] MEDS ORDERED: LORazepam 2 MG/1 ML VIAL ONE (14:38)
[2022-09-09] MEDS ORDERED: Heparin IV Adult Wt-Based Standard WITH Bolus Protocol IV STA (14:38)
[2022-09-09] MEDS ORDERED: TOPIRAMATE 100 MG TAB PO ONE (14:44)
[2022-09-09] MEDS ORDERED: HEPARIN SOD (PORCINE) 1000 UNIT/ML IV ONE ×2 (14:53→15:30)
--- NOTE | 2022-09-09 15:15 | History & Physical Report ---
Date of Service September 09, 2022 Assessment & Plan (1) Fall: Plan: [facility] [place] after developing heart palpitations along with tripping while using his rolling walker. He is s/p open right SI joint fusion on 08/23/22 and has been working with home physical therapy, is non weight bearing on the right lower extremity. - Admit to telemetry to evaluate for arrhythmia. - CT head was negative for acute findings; CT CAP with degenerative changes, small pulmonary nodules. CT spine was negative. - Fall precautions, PT/OT evaluation and treatment. Out of bed with assistance only. (2) Seizure-like activity: Plan: Due to missing morning medication, including home Keppra and Topamax. - Follows with [facility] [place], will consult Dr. Sam. - Received Keppra total of 2,000 mg in ER along with Ativan 1.5 mg IV. - Recommend Keppra 1,000 mg IV BID. - Continue home Topamax 100 mg BID. - Ativan 2 mg IV q3min prn seizure activity, max of 3 doses. - CT head was negative in ER. - Seizure precautions/fall precautions. - Will order carb consistent diet with aspiration precautions; continue PO meds, as patient is currently alert. (3) Generalized weakness: Plan: - Due to seizure activity, recent back surgery. - PT/OT consult. (4) Subtherapeutic anticoagulation: Plan: - In setting of mechanical aortic heart valve. - INR 1.3, recommend continuing Heparin drip (started in ER) until he reaches therapeutic INR. - Coumadin 10 mg on Mon, Wed, Sun, Sun; 7.5 mg on , , Sat. - Monitor daily INR levels along with PTT in setting of Heparin drip. - Low threshold to consider PE work up in setting of recent surgery if patient develops tachypnea, tachycardia, hypoxia. (5) Mechanical heart valve present: Plan: - Remains on Coumadin therapy, INR subtherapeutic. (6) Diabetes: Plan: - Lantus 15 units BID. - SSI coverage with gluc checks ac/hs. - Hgb A1C 7.7 on 08/24/22. (7) CAD (coronary artery disease): Plan: - Continue ASA, atorvastatin as prescribed. - EKG in ER with junctional rhythm and ST depression in lateral leads. - Telemetry monitoring; pt. does not have evidence of cardiac symptoms. (8) Rheumatoid arthritis: Plan: - On chronic Prednisone therapy 5 mg daily. - Monitor for signs of adrenal insufficiency. (9) Chronic kidney disease, stage 3a: Plan: - GFR 45, Creatinine baseline 1.1. - Renally dose meds if appropriate. (10) Parkinsonism: Plan: - Likely leading to falls. - Aspiration precautions - Continue home Carbidopa-Levodopa. (11) Interstitial lung disease: Plan: - Stable, on room air. (12) Previous back surgery: Plan: S/p open right SI joint fusion on 08/23/[address] Agarwal. - Tylenol and Oxycodone prn pain. - Continue Gabapentin as prescribed. - PT/OT consult. (13) PAF (paroxysmal atrial fibrillation): Plan: - Admit to telemetry; patient reports he noticed episode of arrhythmia prior to fall this morning. - He had rapid A. fib during admission in , - Not currently on AV elysia amor; does take Coumadin (see above). DVT ppx: Heparin drip, continue home Coumadin. Code status: FULL Dispo: Admit to telemetry for neurology consultation, heparin drip. PT/OT consult. History of Present Illness Chief Complaint: Fall Seizures Subtherapeutic anticoagulation Primary Care Provider: Josemanuel Melo MD Mr. Bradford is a 77 y/o male with CAD, CKD Stage IIIa, Seizures, intermediate anticoagulation in setting of aortic valve replacement, DM Type II, depression, HLD, interstitial lung disease, parkinsonism, prostate cancer, rheumatoid arthritis, TIA who presents following a fall at his living facility along with seizure like activity. The patient is status post open right SI joint fusion on 08/23/22, completed by Dr. Agarwal; he has been working with PT at the [facility], where he resides, and is using a rolling walker at all times. He was returning from the restroom this morning, developed palpitations c/w a self reported arrhythmia leading to a fall. He did strike the left side of his head during fall. He was not found by the staff at the [facility] for a few hours. The patient unfortunately missed taking his morning medications, including Keppra and Topamax for history of seizures. He was reported to have a 1-2 minute seizure upon EMS arrival. Upon presentation to the ER, he has had multiple episodes of seizure like activity; he required Keppra 1,000 mg x 2 doses along with Ativan 1.5 mg. CBC with chronic normocytic anemia; lactate level was 2.[address] brain was negative for acute hemorrhage. CT chest with degenerative changes and small pulmonary nodules; CT AP was negative for acute abnormalities. CT C- spine was negative. He has a subtherapeutic INR at 1.3, in setting of prosthetic aortic valve. He reports recent increase in INR levels, leading to dose reducing Coumadin. Management of coumadin is typically completed by PCP Dr. Melo. Allergies Allergy/AdvReac Type Severity Reaction Status Date / Time bee venom protein (honey bee) Allergy Severe anaphylaxis Verified 09/09/22 15:26 Iodinated Contrast Media Allergy Severe Anaphylaxis Verified 09/09/22 15:26 shellfish derived Allergy Severe Anaphylaxis Verified 09/09/22 15:26 doxazosin Allergy Intermediate Rash Verified 09/09/22 15:26 tamsulosin [From Flomax] Allergy Intermediate Itching Verified 09/09/22 15:26 Tetanus Vaccines and Toxoid Allergy Unknown Unknown Verified 09/09/22 15:26 lamotrigine AdvReac Intermediate Confusion Verified 09/09/22 15:26 oxycodone [From Percocet] AdvReac Intermediate nausea/vomi Verified 09/09/22 15:26 ting propoxyphene [From Darvon] AdvReac Intermediate nausea/vomi Verified 09/09/22 15:26 ting Home Medications Medication Instructions Recorded Confirmed Type atorvastatin 40 mg tablet 40 mg PO HS 05/28/20 09/09/22 History fexofenadine 180 mg tablet 180 mg PO QAM 02/11/21 09/09/22 History (Karlee Allergy) allopurinol 100 mg tablet 100 mg PO HS 04/10/21 09/09/22 History cholecalciferol (vitamin D3) 50 4,000 unit PO HS 07/14/21 09/09/22 History mcg (2,000 unit) capsule (Vitamin D3) insulin glargine 100 unit/mL (3 15 unit subcut BID 07/26/21 09/09/22 History mL) subcutaneous pen (Lantus Solostar U-100 Insulin) acetaminophen 325 mg tablet 650 mg PO Q4H PRN pain #30 tabs 08/04/21 09/09/22 Rx aspirin 81 mg tablet,delayed 81 mg PO QAM #30 tabs 08/04/21 09/09/22 Rx release fluticasone fur. 100 mcg-umeclid 1 inh inhalation QAM #60 ea 09/06/21 09/09/22 Rx 62.5 mcg-vilant 25 mcg inhalat.powder (Trelegy Ellipta) albuterol sulfate 90 mcg/actuation 2 puff inhalation Q4H PRN 09/27/21 09/09/22 History aerosol inhaler (Ventolin HFA) Shortness Of Breath Or Wheezing polyethylene glycol 3350 17 17 g PO BID PRN Constipation 10/04/21 09/09/22 History gram/dose oral powder (Miralax) furosemide 20 mg tablet 20 mg PO QAM 11/24/21 09/09/22 History sennosides 8.6 mg tablet (Senokot) 17.2 mg PO QAM 11/24/21 09/09/22 History warfarin 5 mg tablet See Rx Instructions .Route .COMPLEX 11/24/21 09/09/22 History topiramate 100 mg tablet (Topamax) 100 mg PO BID 30 days #180 tabs 12/29/21 09/09/22 Rx insulin aspart U-100 100 unit/mL 1 sliding scale dose subcut ACHS 02/26/22 09/09/22 History (3 mL) subcutaneous pen (Novolog FlexPen U-100 Insulin aspart) diclofenac sodium 1 % topical gel 2 g topical DAILY 05/21/22 09/09/22 History (Voltaren Arthritis Pain) ferrous sulfate 325 mg (65 mg 325 mg PO QAM #30 tabs 05/26/22 09/09/22 Rx iron) tablet,delayed release sodium chloride 0.65 % nasal spray 2 spray NA QID #10 mL 05/26/22 09/09/22 Rx aerosol (Saline Mist) levetiracetam 500 mg tablet 1,000 mg PO BID #360 tabs 08/03/22 09/09/22 Rx (Keppra) cyanocobalamin (vitamin B-12) 1,000 mcg PO QAM 08/14/22 09/09/22 History 1,000 mcg tablet,extended release (Vitamin B-12 ER) gabapentin 300 mg capsule 300 - 600 mg PO BID 08/14/22 09/09/22 History magnesium 250 mg tablet 250 mg PO QAM 08/14/22 09/09/22 History pantoprazole 20 mg tablet,delayed 20 mg PO QAM 08/14/22 09/09/22 History release (Protonix) potassium chloride 20 mEq 20 meq PO HS 08/14/22 09/09/22 History tablet,extended release prednisone 5 mg tablet 5 mg PO QAM 08/14/22 09/09/22 History carbidopa 25 mg-levodopa 100 mg 1 tab PO TID 08/23/22 09/09/22 History tablet (Sinemet) finasteride 5 mg tablet (Proscar) 5 mg PO QAM 08/23/22 09/09/22 History ondansetron 4 mg disintegrating 4 mg PO Q6H PRN nausea and 08/24/22 09/09/22 Rx tablet vomiting #30 tabs oxycodone 5 mg tablet 5 mg PO DAILY PRN pain #20 tabs 08/24/22 09/09/22 Rx tramadol 50 mg tablet 50 mg PO Q6H PRN pain, moderate 08/24/22 09/09/22 Rx #30 tabs Past Med/Surg History Medical History Anemia history of blood transfusion, 2020 Anxiety Aortic ectasia, thoracic Aspiration pneumonia hx of--per pt was due to pain medications Asthma inhaler daily and prn CAD (coronary artery disease) follows with Dr. Chau Chronic dyspnea Chronic kidney disease, stage 3a Chronic pulmonary aspiration Chronic respiratory failure with hypoxia Chronic use of steroids Constipated Current use of intermediate anticoagulation warfarin daily Depression Diabetes IDDM Diabetic peripheral neuropathy Dysphagia Edema Generalized weakness Gout Hearing deficit Heart failure > 70% History of seizures last 2019--on Keppra/Topiramate--follows with Dr. Kori MONTAGUE (hyperlipidemia) Hypokalemia Idiopathic polyneuropathy Interstitial lung disease due to connective tissue disease inhaler daily and prn and uses 2L N/C at hs Migraine Neck pain Neurogenic claudication due to lumbar spinal stenosis On home oxygen therapy 2L at hs Pancytopenia Parkinsonism per pt has a difficulty swallowing, states certain foods can be difficult to eat Pneumonia hx of, per pt last admission @ [facility] was 05/2022 Polymyositis Prostate cancer radiation Rheumatoid arthritis Shortness of breath per pt on with exertion Somatic dysfunction of cervical region Stroke-like symptom 12/2019, w/ blurry vision and dysarthria. mild R sided wkness. attending outp atient physical therapy w/ good improvement in strength (5+/5 strength of all 4 extremities as of 05/28/20) Supratherapeutic INR Thoracic ascending aortic aneurysm s/p repair TIA (transient ischemic attack) 2019--no deficits--follows with Dr. Sheikh Surgical History H/O hernia repair History of aortic valve replacement 2003 @ [facility] in [place], [place] History of appendectomy History of bilateral cataract extraction History of cardiac cath x3--2017 @ [facility] with 1 stent placed/2019 @ [facility]/last 04/2021 @ [facility] History of cholecystectomy History of colonoscopy History of esophagogastroduodenoscopy (EGD) History of fusion of cervical spine normal ROM History of gastric bypass 2007--lap band History of heart artery stent x1--2018 @ [facility] History of lumbar spinal fusion History of lung biopsy 2019 History of partial nephrectomy 1986 on right kidney History of prostate biopsy malignant History of tonsillectomy History of tooth extraction all upper teeth removed Family History Mother , age 87 of pulmonary issues Rheumatoid arthritis Father , in his mid 80s of a stroke Stroke Other Coronary heart disease No family history of adverse response to anesthesia Social History Smoking Status: Never smoker Second Hand Exposure: No; Do You Dip or Chew Tobacco: No; Hx Alcohol Use: No Hx Substance Use: No Preferred Language: Jamaican Communication Ability: Effective Hearing Ability: Hard of Hearing 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: No Beliefs That Will Affect Care: None marital status: / Current Living Situation: Alone Current Living Situation Comment: lives at the [facility] current occupational status: retired 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 How many Children do You have: 2 How many Children do You have Comment: son Feels Safe at Home: Yes Assistive Devices: Oxygen - at Night and Walker Review of Systems Review of Systems: Constitutional: Fatigue; Negative for weight loss, night sweats, or fever Eyes: Negative for event change of vision ENT: Negative for epistaxis, nasal discharge, sore throat, or deafness Cardiovascular: Palpitations; Negative for anginal type chest pain, dizziness, diaphoresis Respiratory: Negative for new shortness of breath, hemoptysis, or purulent cough Gastrointestinal: Negative for diarrhea, hematemesis, melena, nausea, vomiting, or dyspepsia Integumentary (skin): Negative for rash or jaundice discoloration Genitourinary: Negative for urinary frequency, hematuria, or dysuria Neurological: Seizure activity and weaknessNegative for headache, or dizziness Lymphatic/Hematologic: Negative for petechiae, bleeding or new adenopathy Musculoskeletal: Negative for new joint or back pain Allergic/Immunologic: Negative for unusual rash or pruritis Physical Exam Physical Exam: Constitutional: Vitals are stable Neck: Negative for masses or palpable thyromegaly Respiratory: Lung sounds were generally clear bilaterally. Cardiovascular: Heart was RRR without significant murmur, gallops or rubs. Musculoskeletal System: The musculoskeletal system seemed concordant with age. Skin: The skin was negative for jaundice. Neurologic Exam: The exam was negative for any focal findings. Extremities: Negative for edema or erythema Results & Data Results & Data Vital Signs (Past 12 Hours) Vital Signs Temp Pulse Resp BP Pulse Ox O2 Del Method 09/09/22 15:00 74 14 113/73 94 Room Air 09/09/22 14:00 80 19 122/74 95 Room Air 09/09/22 12:33 77 09/09/22 12:23 77 18 100 Room Air 09/09/22 12:09 37 C 78 18 166/85 H 100 Room Air Laboratory Results 09/09/22 09/09/22 09/09/22 Range/Units 15:12 12:49 12:41 WBC (4.8-10.8) K/ul RBC (4.70-6.10) M/uL Hgb (14.0-18.0) g/dl POC Hgb (14.0-18.0) g/dl Hct (42.0-52.0) % POC Hct (42-52) % MCV (80.0-100.0) fL MCH (25.0-34.0) pg MCHC (32.0-36.0) g/dL RDW Std Deviation (36.4-46.3) fL RDW Coeff of Lianne (11.5-14.5) % Plt Count (130-400) K/uL MPV (9.4-12.4) fL Immature Gran % (Auto) % Neut % (Auto) % Lymph % (Auto) % [place] % (Auto) % Eos % (Auto) % Baso % (Auto) % Neut # (Auto) (1.40-6.50) K/uL Lymph # (Auto) (1.2-3.4) K/uL [place] # (Auto) (0.11-0.59) K/uL Eos # (Auto) (0-0.50) K/uL Baso # (Auto) (0-0.2) K/uL Immature Gran # (Auto) (0.01-0.20) K/uL PT (9.0-12.0) Seconds INR (0.9-1.1) APTT (21.0-31.0) Seconds PTT Ratio POC Sodium (135-144) mmol/L Sodium (136-145) mmol/L POC Potassium (3.3-5.0) mmol/L Potassium (3.5-5.1) mmol/L POC Chloride (101-112) mmol/L Chloride (98-107) mmol/L Carbon Dioxide (21-32) mmol/L POC Total CO2 (24-31) mmol/L Anion Gap (3-11) POC Anion Gap (16-25) mmol/L POC BUN (7-18) mg/dl BUN (6-23) mg/dl Creatinine (0.6-1.4) mg/dl POC Creatinine (0.6-1.3) mg/dl Est Cr Clr Drug Dosing ml/min Est GFR ( Amer) ml/min Est GFR (Non-Af Amer) ml/min BUN/Creatinine Ratio (10-20) Glucose (70-99(Fasting)) mg/dl POC Glucose (other) (70-99) mg/dl Lactate 2.1 H* (0.4-2.0) mmol/L Calcium (8.6-10.3) mg/dl POC Ioniz Calcium Dewey (1.12-1.32) mmol/l Total Bilirubin (0.2-1.0) mg/dl AST (13-39) U/L ALT (7-52) U/L Alkaline Phosphatase (34-104) U/L Total Creatine Kinase (30-223) U/L Troponin I High Sens (0-20) pg/ml Total Protein (6.0-8.3) gm/dl Albumin (3.4-5.0) gm/dl Globulin (2.5-4.0) gm/dl Albumin/Globulin Ratio (0.9-2) Urine Color Pending Urine Appearance Pending Urine pH Pending Ur Specific [place] Pending Urine Protein Pending Urine Glucose (UA) Pending Urine Ketones Pending Urine Blood Pending Urine Nitrite Pending Urine Bilirubin Pending Urine Urobilinogen Pending Ur Leukocyte Esterase Pending SARS-CoV-2, RNA, NAAT NEGATIVE (NEGATIVE) 09/09/22 09/09/22 09/09/22 Range/Units 12:35 12:31 12:31 WBC (4.8-10.8) K/ul RBC (4.70-6.10) M/uL Hgb (14.0-18.0) g/dl POC Hgb 12.2 L (14.0-18.0) g/dl Hct (42.0-52.0) % POC Hct 36 L (42-52) % MCV (80.0-100.0) fL MCH (25.0-34.0) pg MCHC (32.0-36.0) g/dL RDW Std Deviation (36.4-46.3) fL RDW Coeff of Lianne (11.5-14.5) % Plt Count (130-400) K/uL MPV (9.4-12.4) fL Immature Gran % (Auto) % Neut % (Auto) % Lymph % (Auto) % [place] % (Auto) % Eos % (Auto) % Baso % (Auto) % Neut # (Auto) (1.40-6.50) K/uL Lymph # (Auto) (1.2-3.4) K/uL [place] # (Auto) (0.11-0.59) K/uL Eos # (Auto) (0-0.50) K/uL Baso # (Auto) (0-0.2) K/uL Immature Gran # (Auto) (0.01-0.20) K/uL PT (9.0-12.0) Seconds INR (0.9-1.1) APTT 28.5 (21.0-31.0) Seconds PTT Ratio 1.0 POC Sodium 140 (135-144) mmol/L Sodium 139 (136-145) mmol/L POC Potassium 3.8 (3.3-5.0) mmol/L Potassium 3.9 (3.5-5.1) mmol/L POC Chloride 104 (101-112) mmol/L Chloride 105 (98-107) mmol/L Carbon Dioxide 26 (21-32) mmol/L POC Total CO2 24 (24-31) mmol/L Anion Gap 8 (3-11) POC Anion Gap 17.0 (16-25) mmol/L POC BUN 30 H (7-18) mg/dl BUN 34 H (6-23) mg/dl Creatinine 1.48 H (0.6-1.4) mg/dl POC Creatinine 1.7 H (0.6-1.3) mg/dl Est Cr Clr Drug Dosing 50.6 ml/min Est GFR ( Amer) 52.1 ml/min Est GFR (Non-Af Amer) 45.0 ml/min BUN/Creatinine Ratio 23.0 H (10-20) Glucose 92 (70-99(Fasting)) mg/dl POC Glucose (other) 94 (70-99) mg/dl Lactate (0.4-2.0) mmol/L Calcium 9.3 (8.6-10.3) mg/dl POC Ioniz Calcium Dewey 1.22 (1.12-1.32) mmol/l Total Bilirubin 0.4 (0.2-1.0) mg/dl AST 26 (13-39) U/L ALT 24 (7-52) U/L Alkaline Phosphatase 94 (34-104) U/L Total Creatine Kinase 88 (30-223) U/L Troponin I High Sens 10.7 (0-20) pg/ml Total Protein 6.6 (6.0-8.3) gm/dl Albumin 3.9 (3.4-5.0) gm/dl Globulin 2.7 (2.5-4.0) gm/dl Albumin/Globulin Ratio 1.4 (0.9-2) Urine Color Urine Appearance Urine pH Ur Specific [place] Urine Protein Urine Glucose (UA) Urine Ketones Urine Blood Urine Nitrite Urine Bilirubin Urine Urobilinogen Ur Leukocyte Esterase SARS-CoV-2, RNA, NAAT (NEGATIVE) 09/09/22 09/09/22 Range/Units 12:31 12:31 WBC 6.23 (4.8-10.8) K/ul RBC 4.03 L (4.70-6.10) M/uL Hgb 11.4 L (14.0-18.0) g/dl POC Hgb (14.0-18.0) g/dl Hct 36.2 L (42.0-52.0) % POC Hct (42-52) % MCV 89.8 (80.0-100.0) fL MCH 28.3 (25.0-34.0) pg MCHC 31.5 L (32.0-36.0) g/dL RDW Std Deviation 48.1 H (36.4-46.3) fL RDW Coeff of Lianne 14.8 H (11.5-14.5) % Plt Count 215 (130-400) K/uL MPV 9.9 (9.4-12.4) fL Immature Gran % (Auto) 1.8 % Neut % (Auto) 57.4 % Lymph % (Auto) 29.4 % [place] % (Auto) 7.1 % Eos % (Auto) 3.2 % Baso % (Auto) 1.1 % Neut # (Auto) 3.58 (1.40-6.50) K/uL Lymph # (Auto) 1.83 (1.2-3.4) K/uL [place] # (Auto) 0.44 (0.11-0.59) K/uL Eos # (Auto) 0.20 (0-0.50) K/uL Baso # (Auto) 0.07 (0-0.2) K/uL Immature Gran # (Auto) 0.11 (0.01-0.20) K/uL PT 13.9 H (9.0-12.0) Seconds INR 1.3 H (0.9-1.1) APTT (21.0-31.0) Seconds PTT Ratio POC Sodium (135-144) mmol/L Sodium (136-145) mmol/L POC Potassium (3.3-5.0) mmol/L Potassium (3.5-5.1) mmol/L POC Chloride (101-112) mmol/L Chloride (98-107) mmol/L Carbon Dioxide (21-32) mmol/L POC Total CO2 (24-31) mmol/L Anion Gap (3-11) POC Anion Gap (16-25) mmol/L POC BUN (7-18) mg/dl BUN (6-23) mg/dl Creatinine (0.6-1.4) mg/dl POC Creatinine (0.6-1.3) mg/dl Est Cr Clr Drug Dosing ml/min Est GFR ( Amer) ml/min Est GFR (Non-Af Amer) ml/min BUN/Creatinine Ratio (10-20) Glucose (70-99(Fasting)) mg/dl POC Glucose (other) (70-99) mg/dl Lactate (0.4-2.0) mmol/L Calcium (8.6-10.3) mg/dl POC Ioniz Calcium Dewey (1.12-1.32) mmol/l Total Bilirubin (0.2-1.0) mg/dl AST (13-39) U/L ALT (7-52) U/L Alkaline Phosphatase (34-104) U/L Total Creatine Kinase (30-223) U/L Troponin I High Sens (0-20) pg/ml Total Protein (6.0-8.3) gm/dl Albumin (3.4-5.0) gm/dl Globulin (2.5-4.0) gm/dl Albumin/Globulin Ratio (0.9-2) Urine Color Urine Appearance Urine pH Ur Specific [place] Urine Protein Urine Glucose (UA) Urine Ketones Urine Blood Urine Nitrite Urine Bilirubin Urine Urobilinogen Ur Leukocyte Esterase SARS-CoV-2, RNA, NAAT (NEGATIVE) Diagnostic Findings CT head/brain wo con CLINICAL HISTORY: Trauma, fall, seizures Findings: The ventricles, basal cisterns, and cerebral sulci are normal. There is no acute intracranial hemorrhage or evidence of acute territorial infarction. Neither mass effect, shift of the midline structures, nor abnormal extra-axial fluid collections are shown. Imaged portions of the paranasal sinuses and mastoid air cells are clear. The orbits appear normal. There are no acute fractures of the calvaria or scalp swelling. Impression: No acute intracranial hemorrhage, no evidence of acute territorial infarction or other acute intracranial disease process. CT chest diagnostic wo con CLINICAL HISTORY: Trauma, fall FINDINGS: Lungs and pleura: Atelectasis versus scarring is seen in the dependent portions of the lungs. A few pulmonary nodules are seen including a 5 mm nodule in the right upper lobe (series 12 image 104) and 3 mm nodule in the left lower lobe (image 144). Heart and pericardium: Aortic valve prosthesis is seen. Mitral annular ca lcifications are noted. Vessels: Severe atherosclerotic changes in the aorta and coronary arteries. Mediastinum and vamshi: Unremarkable. Chest wall and lower neck: Unremarkable. Abdomen: For findings below the diaphragm, please refer to CT of the abdomen dated the same. Bones: Degenerative changes in the thoracic spine. IMPRESSION: 1. Degenerative changes without evidence of acute fracture. 2. Small pulmonary nodules as above. According to Fleischner criteria, no follow-up is required in low risk patients, in high-risk patients, a 12 month follow-up CT can be optionally performed. 3. Status post aortic valvular prosthesis. CT cervical spine wo con CLINICAL HISTORY: Trauma, fall FINDINGS: Anterior cervical fixation hardware is seen spanning L4-L5. Degenerative changes are seen in the visualized spine. The alignment is normal. Vascular calcifications are seen. IMPRESSION: No evidence of acute bony injury. CT abd pelvis wo con COMPARISON: Comparison is made to CT abdomen pelvis 05/21/2022 FINDINGS: Lower chest: For findings above the diaphragm, please see CT chest performed same day. Liver: Unremarkable. No focal lesions are seen. Gallbladder and biliary tree: Patient is status post cholecystectomy. No intra- or extrahepatic biliary ductal dilation. Pancreas: Fatty replacement of the pancreas is seen. Spleen: Unremarkable. Adrenals: Unremarkable. Kidneys and ureters: Perinephric stranding is noted bilaterally. Bladder: Unremarkable. Reproductive organs: Prostatic calcifications are seen which may represent prior hemorrhage or granulomatous disease. Bowel: Diverticulosis is seen without evidence of diverticulitis. A lap band is noted in the gastroesophageal junction with a small hiatal hernia. Lymph nodes Retroperitoneal: Unremarkable. Pelvic: Unremarkable. Mesenteric: Unremarkable. Peritoneum: Normal. Vessels: Atherosclerotic calcifications are seen. Abdominal wall: Unremarkable. Bones: Degenerative changes are seen in the spine. Posterior fixation hardware spans L3-S1. IMPRESSION: No acute abnormalities and in particular no evidence of acute fracture. Additional findings as above. Code Status & VTE Plan VTE Prophylaxis Plan VTE Prophylaxis will be ordered: Yes Supervising Physician Co-Signing Physician Notes Patient seen and examined, chart reviewed, case discussed with Christin Quiroz PA-C and I agree with the assessment and plan as above except as otherwise noted Labs and images reviewed Xavi is a 77-year-old male with a past medical history of seizures, DM 2, generalized weakness, ambulatory dysfunction, CAD, AVR, polyneuropathy, asthma who was not taking his seizure medications and was admitted following 2 seizures. Lactate is minimally elevated consistent with seizure. CT of the head shows no acute findings, CT of the chest with no acute findings small pulmonary nodules with optional 12-month follow-up, CT of the C-spine with no acute findings, CT of the abdomen and pelvis with no acute findings. At bedside pt is mentating normally, although endorses fatigue, answers questions appropriately and moves upper extremities equally on command. chronic lower extremity weakness, no acute/asymmetricla weakness. Breathing unlabored, heart rate is regular with systolic murmur present. Patient has been loaded with Keppra. Topamax resumed. Continue Keppra dose increased to 1000 mg twice daily Ativan on-call for breakthrough. Seizure precautions. Suspect acute seizure episode in the setting of noncompliance, neurology consulted due to recurrent seizure. Agree with increasing warfarin back to 10 mg and then alternating with 7.5 due to subtherapeutic INR, patient temporarily bridged on heparin pending therapeutic rise. Patient with no additional questions at time of bedside assessment. Agree with recommendation/management above. PG Care Time/CCT Total # of Minutes Spent Total Time Spent with Patient: Total time spent is greater than 50% in coordination of care (as documented) at patient's floor/unit and/or counseling patient: [place] [address] INT INP/OBS CARE MIN Patient Type New Diagnoses Fall W19.XXXA Encounter type: initial encounter Seizure-like activity R56.9 Generalized weakness R53.1 Subtherapeutic anticoagulation Z51.81; Z79.01 Mechanical heart valve present Z95.2 Diabetes E11.42; Z79.4 Diabetes mellitus complication detail: with polyneuropathy Diabetes mellitus complication status: with neurologic complications Diabetes mellitus intermediate insulin use: with computer terminal operator use Diabetes mellitus type: type 2 CAD (coronary artery disease) I25.10 Associated angina: without angina Coronary Disease-Associated Artery/Lesion type: [place] artery [place] vs. transplanted heart: [place] heart Rheumatoid arthritis M06.9 Rheumatoid arthritis location: unspecified site Rheumatoid factor presence: unspecified presence Chronic kidney disease, stage 3a N18.3 Parkinsonism G20 Interstitial lung disease J84.9 Previous back surgery Z98.890 PAF (paroxysmal atrial fibrillation) I48.0 (1) Fall Encounter type: initial encounter Qualified Code(s): W19.XXXA - Unspecified fall, initial encounter (6) Diabetes Diabetes mellitus complication detail: with polyneuropathy Diabetes mellitus complication status: with neurologic complications Diabetes mellitus computer terminal operator insulin use: with computer terminal operator use Diabetes mellitus type: type 2 Qualified Code(s): E11.42 - Type 2 diabetes mellitus with diabetic polyneuropathy; Z79.4 - assisted (current) use of insulin (7) CAD (coronary artery disease) Associated angina: without angina Coronary Disease-Associated Artery/Lesion type: [place] artery [place] vs. transplanted heart: [place] heart Qualified Code(s): I25.10 - Atherosclerotic heart disease of [place] coronary artery without angina pectoris (8) Rheumatoid arthritis Rheumatoid arthritis location: unspecified site Rheumatoid factor presence: unspecified presence Qualified Code(s): M06.9 - Rheumatoid arthritis, unspecified
[2022-09-09 15:40] LABS: Appearance Urine Cloudy (Clear); Bacteria Urine Automated Negative (Negative); Bilirubin Urine Negative (Negative); Blood Urine Negative (Negative); Color Urine Yellow; Epithelial Cell Urine Auto 0-5 /lpf (0-5); Glucose Urine UA Negative (Negative); Ketones Urine Negative (Negative); Leukocyte Esterase Urine Negative (Negative); Nitrite Urine Negative (Negative); Protein Urine Negative (Negative); RBC Urine Automated 0-4 /hpf (0-4); Urobilinogen Urine Negative (Negative); pH Urine 8.5 (4.5-7.5)
[2022-09-09] MEDS ORDERED: HEPARIN SOD (PORCINE) 1000 UNIT/ML 10 ML VIAL IV ONE (15:42)
[2022-09-09] MEDS: HEPARIN SODIUM/DEXTROSE 25,000 UNITS/500 ML BAG IV SCH (15:46)
[2022-09-09] MEDS ORDERED: DEXTROSE 50% 50 ML SYRINGE IV PRN (17:00)
[2022-09-09] MEDS ORDERED: CARBOHYDRATES FOR HYPOGLYCEMIA PO PRN (17:00)
[2022-09-09] MEDS ORDERED: LORazepam 2 MG/1 ML VIAL IV PRN (17:00)
[2022-09-09] MEDS ORDERED: GLUCOSE 10 TAB/TUBE PO PRN (17:00)
[2022-09-09] MEDS ORDERED: GLUCAGON FOR INJ 1 MG VIAL SQ PRN (17:00)
[2022-09-09] MEDS ORDERED: ACETAMINOPHEN 325 MG TAB PO PRN (17:00)
[2022-09-09] MEDS ORDERED: ALBUTEROL HFA 8 GM INHALER INH PRN (17:00)
[2022-09-09] MEDS ORDERED: oxyCODONE HCL IR 5 MG TAB (IMMEDIATE RELEASE) PO PRN (17:00)
[2022-09-09] MEDS ORDERED: WARFARIN SOD 10 MG TAB PO SCH (17:00)
[2022-09-09] MEDS ORDERED: GLUCOSE 40% GEL 15 GM TUBE PO PRN (17:00)
[2022-09-09] MEDS ORDERED: WARFARIN SOD 7.5 MG TAB PO SCH (17:00)
[2022-09-09] MEDS: WARFARIN SOD 7.5 MG TAB PO SCH (17:53)
[2022-09-09] MEDS: INSULIN ASPART PER UNIT CHARGE SC SCH ×2 (17:54→20:48)
[2022-09-09] MEDS: levETIRAcetam 1,000 MG in 0.9 % SODIUM CHLORIDE 100 ML IV SCH ×2 (20:38→20:59)
[2022-09-09 20:39] LABS: Hematocrit (blood only) 34.2 % (42.0-52.0); Hemoglobin 11.2 g/dl (14.0-18.0)
[2022-09-09] MEDS: LANTUS PER UNIT CHARGE SQ SCH (20:49)
[2022-09-09] MEDS: TOPIRAMATE 100 MG TAB PO SCH (20:56)
[2022-09-09] MEDS: GABAPENTIN 300 MG CAP PO SCH (20:56)
[2022-09-09] MEDS: ATORVASTATIN 40 MG TAB PO SCH (20:57)
[2022-09-09] MEDS: CARBIDOPA/LEVODOPA 25/100MG TAB PO SCH (20:57)
[2022-09-09] MEDS: allopurinoL 100 MG TAB PO SCH (20:57)
[2022-09-10 00:19] LABS: Partial Thromboplastin Ratio 3.4
[2022-09-10 01:07] LABS: Partial Thromboplastin Time 94.9 Seconds (21.0-31.0)
[2022-09-10 06:23] LABS: Hematocrit (blood only) 33.4 % (42.0-52.0); Hemoglobin 10.4 g/dl (14.0-18.0); Mean Corpuscular Hemoglobin 27.8 pg (25.0-34.0); Mean Corpuscular Hgb Conc 31.1 g/dL (32.0-36.0); Mean Corpuscular Volume 89.3 fL (80.0-100.0); Platelet Count 186 K/uL (130-400); RDW Standard Deviation 48.9 fL (36.4-46.3); Red Blood Count 3.74 M/uL (4.70-6.10); White Blood Count 4.27 K/ul (4.8-10.8)
[2022-09-10 06:45] LABS: Albumin Globulin Ratio 1.5 (0.9-2); Albumin Level 3.3 gm/dl (3.4-5.0); BUN Creatinine Ratio 23.3 (10-20); Bilirubin,Total 0.4 mg/dl (0.2-1.0); Calcium 8.9 mg/dl (8.6-10.3); Creatinine Clr Calc Pharmacy 57.5 ml/min; Est GFR (African American) 61.6 ml/min; Est GFR (Non-African American) 53.1 ml/min; Globulin 2.2 gm/dl (2.5-4.0); Potassium 3.9 mmol/L (3.5-5.1); Total Protein 5.5 gm/dl (6.0-8.3)
[2022-09-10 07:21] LABS: INR 1.4 (0.9-1.1); Prothrombin Time 14.9 Seconds (9.0-12.0)
[2022-09-10 08:17] LABS: Hematocrit (blood only) 32.7 % (42.0-52.0); Hemoglobin 10.6 g/dl (14.0-18.0)
[2022-09-10 08:57] LABS: Partial Thromboplastin Ratio 2.7
[2022-09-10 09:00] LABS: Partial Thromboplastin Time 77.2 Seconds (21.0-31.0)
[2022-09-10] MEDS ORDERED: predniSONE 5 MG TAB PO SCH (09:00)
[2022-09-10] MEDS ORDERED: NON-FORMULARY MEDICATION (Fluticasone-Umeclidin-Vilanter [Trelegy Ellipta] 100-62.5-25 mcg INH SCH (09:00)
[2022-09-10] MEDS ORDERED: UMECLIDINIUM/VILANTEROL 62.5/25MCG 7 PUFFS/INHALER INH SCH (09:00)
[2022-09-10] MEDS: HEPARIN SODIUM/DEXTROSE 25,000 UNITS/500 ML BAG IV SCH (09:05)
[2022-09-10] MEDS: FLUTICASONE/VILANTEROL 100/25MCG 14 PUFFS/INHALER INH SCH (09:19)
[2022-09-10] MEDS: PANTOprazole 40 MG TAB PO SCH (09:21)
[2022-09-10] MEDS: ASPIRIN 81 MG ECTAB PO SCH (09:21)
[2022-09-10] MEDS: GABAPENTIN 600 MG TAB PO SCH (09:21)
[2022-09-10] MEDS: FINASTERIDE 5 MG TAB PO SCH (09:21)
[2022-09-10] MEDS: TOPIRAMATE 100 MG TAB PO SCH ×2 (09:21→20:44)
[2022-09-10] MEDS: CARBIDOPA/LEVODOPA 25/100MG TAB PO SCH ×3 (09:21→20:43)
[2022-09-10] MEDS: UMECLIDINIUM BROMIDE 62.5MCG/BLISTER 7 PUFFS/INHALER INH SCH (09:22)
[2022-09-10] MEDS: INSULIN ASPART PER UNIT CHARGE SC SCH ×4 (09:52→20:52)
[2022-09-10] MEDS: LANTUS PER UNIT CHARGE SQ SCH ×2 (09:54→20:53)
[2022-09-10] MEDS: levETIRAcetam 1,000 MG in 0.9 % SODIUM CHLORIDE 100 ML IV SCH ×2 (09:57→20:43)
[2022-09-10 11:13] LABS: Magnesium 2.2 mg/dl (1.7-2.4)
[2022-09-10] MEDS: POLYETHYLENE (MIRALAX) 17 GM PACK PO SCH (12:03)
--- NOTE | 2022-09-10 12:16 | Neurology Consultation ---
Date of Consultation September 10, 2022 Assessment & Plan (1) Seizure disorder: (2) Mixed action and resting tremor: (3) Headache: Plan 77-year-old male with a history of recurrent seizure-like episodes, several negative EEGs previously, has also had an assessment with an epilepsy specialist at [facility] previously although no convincing evidence for epilepsy thus far. Due to recurrent episodes, however, patient has continued with his anticonvulsant regimen which includes Keppra and topiramate. Topiramate is also prescribed for control of his headaches, history of migraine. He has also previously exhibited a mixed resting and action tremor for which he is prescribed Sinemet although he does not clearly have Parkinson's disease. Although this patient is felt to have nonepileptic seizures we have continued with his anticonvulsant regimen as he continues to present with seizure-like episodes. At this point, I agree with continuing Keppra and topiramate as ordered. As above, topiramate is also useful for migraine control in this patient. He was loaded with 1 g of levetiracetam during his evaluation in the emergency department, this medication has been continued, 1 g IV twice daily. I agree with this management decision at this point in time. However, would recommend transitioning to tablets when able to reliably take oral medication. I would also recommend increasing his dosage of topiramate to 150 mg twice daily. I think it be worthwhile to pursue a second opinion with an epilepsy specialist as an outpatient as well. He has already been seen at [facility]. Perhaps we could send him to [facility] for another opinion regarding his seizures. Inpatient video EEG monitoring would have the potential to more definitively diagnose seizures or nonepileptic seizure-like episodes. Further, this patient may continue with carbidopa levodopa as ordered. As above, however, he has displayed an intermittent resting and action tremor but is not felt to have classic Parkinson's disease. I would be reluctant to increase the dosage of this medication, however. On occasion, his blood pressure may run low which may be a fall risk for this patient. We could also consider pursuing an outpatient DaTscan and/or possibly an a ssessment with a movement disorder specialist as an outpatient for a second opinion regarding his movement disorder/gait dysfunction/tremor. Could consider atypical parkinsonism. He does not have examination findings that would suggest progressive supranuclear palsy. Multiple system atrophy may not be completely excluded. I do not think another routine EEG done as an inpatient in this setting, would be very helpful at this point in time. Again, could pursue inpatient video EEG monitoring at a tertiary center going forward. We can look into this as an outpatient. 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 He was last seen at the [facility] neurology clinic August 03, 2022. History of recurrent falls noted with history of closed head injury, mixed tremor/parkinsonism, was to continue Sinemet, diabetic peripheral neuropathy, was to continue with gabapentin, for recurrent seizure-like episodes, was to continue with topiramate and Keppra although has suggested potentially reducing dosage of Keppra. I see that he underwent right SI joint fusion with Dr. Agarwal on August 23, 2022 at [facility]. He was discharged on August 25. [facility] [place] Apparently tripped and struck the left side of his body and head. He apparently laid on the ground for several hours, no evidence of rhabdomyolysis, however on lab evaluation. Per EMS, the patient apparently had a 1 to 2-minute seizure like episode. He received 2 g of IV levetiracetam in the emergency department as well as IV lorazepam. His dosage of levetiracetam was increased in the context of this hospitalization from 1500 mg/day, to 2 g/day (1000 mg IV twice daily). His topiramate was continued at a dose of 100 mg twice daily although also noting his history of migraine. A CT of the head completed yesterday during patient's initial evaluation in the emergency department was unremarkable, no hemorrhage or acute process. I did independently review these images, there is mild generalized atrophy, no hydrocephalus. There is mild chronic microvascular ischemic change noting periventricular white matter lucency. Neurology was consulted for management assistance regarding his history of seizure-like activity. He has been afebrile. His blood pressure has been fairly normal although slightly elevated at presentation, 166/85, slightly low late last night, 96/61 with another low reading late this morning, 97/58. CBC reveals a mild anemia, no leukocytosis, normal platelet count, he is on warfarin, pro time yesterday 1.3, 1.4 today, comprehensive metabolic panel reviewed, normal sodium and potassium. BUN and creatinine mildly elevated, possible element of dehydration, glucose has been modestly elevated, hemoglobin A1c from August 24, 2022 was 7.7, normal calcium and magnesium, normal transaminases, troponin normal, urinalysis unremarkable, negative SARS COVID 2 screening. The patient does reiterate the above history, he indicates that he had tripped and fallen [place]. He states that this episode was not related to his seizure, however. He is generally amnestic for his recent seizure episodes. The patient apparently had a seizure episode upon arrival to the emergency department l asting 1 to 2 minutes. He was given 1 mg of lorazepam IV and 1 g of levetiracetam IV. Allergies Allergy/AdvReac Type Severity Reaction Status Date / Time bee venom protein (honey bee) Allergy Severe anaphylaxis Verified 09/09/22 15:26 Iodinated Contrast Media Allergy Severe Anaphylaxis Verified 09/09/22 15:26 shellfish derived Allergy Severe Anaphylaxis Verified 09/09/22 15:26 doxazosin Allergy Intermediate Rash Verified 09/09/22 15:26 tamsulosin [From Flomax] Allergy Intermediate Itching Verified 09/09/22 15:26 Tetanus Vaccines and Toxoid Allergy Unknown Unknown Verified 09/09/22 15:26 lamotrigine AdvReac Intermediate Confusion Verified 09/09/22 15:26 oxycodone [From Percocet] AdvReac Intermediate nausea/vomi Verified 09/09/22 15:26 ting propoxyphene [From Darvon] AdvReac Intermediate nausea/vomi Verified 09/09/22 15:26 ting Home Medications Medication Instructions Recorded Confirmed Type atorvastatin 40 mg tablet 40 mg PO HS 05/28/20 09/09/22 History fexofenadine 180 mg tablet 180 mg PO QAM 02/11/21 09/09/22 History (Karlee Allergy) allopurinol 100 mg tablet 100 mg PO HS 04/10/21 09/09/22 History cholecalciferol (vitamin D3) 50 4,000 unit PO HS 07/14/21 09/09/22 History mcg (2,000 unit) capsule (Vitamin D3) insulin glargine 100 unit/mL (3 15 unit subcut BID 07/26/21 09/09/22 History mL) subcutaneous pen (Lantus Solostar U-100 Insulin) acetaminophen 325 mg tablet 650 mg PO Q4H PRN pain #30 tabs 08/04/21 09/09/22 Rx aspirin 81 mg tablet,delayed 81 mg PO QAM #30 tabs 08/04/21 09/09/22 Rx release fluticasone fur. 100 mcg-umeclid 1 inh inhalation QAM #60 ea 09/06/21 09/09/22 Rx 62.5 mcg-vilant 25 mcg inhalat.powder (Trelegy Ellipta) albuterol sulfate 90 mcg/actuation 2 puff inhalation Q4H PRN 09/27/21 09/09/22 History aerosol inhaler (Ventolin HFA) Shortness Of Breath Or Wheezing polyethylene glycol 3350 17 17 g PO BID PRN Constipation 10/04/21 09/09/22 History gram/dose oral powder (Miralax) furosemide 20 mg tablet 20 mg PO QAM 11/24/21 09/09/22 History sennosides 8.6 mg tablet (Senokot) 17.2 mg PO QAM 11/24/21 09/09/22 History warfarin 5 mg tablet See Rx Instructions .Route .COMPLEX 11/24/21 09/09/22 History topiramate 100 mg tablet (Topamax) 100 mg PO BID 30 days #180 tabs 12/29/21 09/09/22 Rx insulin aspart U-100 100 unit/mL 1 sliding scale dose subcut ACHS 02/26/22 09/09/22 History (3 mL) subcutaneous pen (Novolog FlexPen U-100 Insulin aspart) diclofenac sodium 1 % topical gel 2 g topical DAILY 05/21/22 09/09/22 History (Voltaren Arthritis Pain) ferrous sulfate 325 mg (65 mg 325 mg PO QAM #30 tabs 05/26/22 09/09/22 Rx iron) tablet,delayed release sodium chloride 0.65 % nasal spray 2 spray NA QID #10 mL 05/26/22 09/09/22 Rx aerosol (Saline Mist) levetiracetam 500 mg tablet 1,000 mg PO BID #360 tabs 08/03/22 09/09/22 Rx (Keppra) cyanocobalamin (vitamin B-12) 1,000 mcg PO QAM 08/14/22 09/09/22 History 1,000 mcg tablet,extended release (Vitamin B-12 ER) gabapentin 300 mg capsule 300 - 600 mg PO BID 08/14/22 09/09/22 History magnesium 250 mg tablet 250 mg PO QAM 08/14/22 09/09/22 History pantoprazole 20 mg tablet,delayed 20 mg PO QAM 08/14/22 09/09/22 History release (Protonix) potassium chloride 20 mEq 20 meq PO HS 08/14/22 09/09/22 History tablet,extended release prednisone 5 mg tablet 5 mg PO QAM 08/14/22 09/09/22 History carbidopa 25 mg-levodopa 100 mg 1 tab PO TID 08/23/22 09/09/22 History tablet (Sinemet) finasteride 5 mg tablet (Proscar) 5 mg PO QAM 08/23/22 09/09/22 History ondansetron 4 mg disintegrating 4 mg PO Q6H PRN nausea and 08/24/22 09/09/22 Rx tablet vomiting #30 tabs oxycodone 5 mg tablet 5 mg PO DAILY PRN pain #20 tabs 08/24/22 09/09/22 Rx tramadol 50 mg tablet 50 mg PO Q6H PRN pain, moderate 08/24/22 09/09/22 Rx #30 tabs Patient History Medical History Anemia history of blood transfusion, 2020 Anxiety Aortic ectasia, thoracic Aspiration pneumonia hx of--per pt was due to pain medications Asthma inhaler daily and prn CAD (coronary artery disease) follows with Dr. Chau Chronic dyspnea Chronic kidney disease, stage 3a Chronic pulmonary aspiration Chronic respiratory failure with hypoxia Chronic use of steroids Constipated Current use of usp anticoagulation warfarin daily Depression Diabetes IDDM Diabetic peripheral neuropathy Dysphagia Edema Generalized weakness Gout Hearing deficit Heart failure > 70% History of seizures last 2019--on Keppra/Topiramate--follows with Dr. Sheikh HLD (hyperlipidemia) Hypokalemia Idiopathic polyneuropathy Interstitial lung disease due to connective tissue disease inhaler daily and prn and uses 2L N/C at hs Migraine Neck pain Neurogenic claudication due to lumbar spinal stenosis On home oxygen therapy 2L at hs Pancytopenia Parkinsonism per pt has a difficulty swallowing, states certain foods can be difficult to eat Pneumonia hx of, per pt last admission @ [facility] was 05/2022 Polymyositis Prostate cancer radiation Rheumatoid arthritis Shortness of breath per pt on with exertion Somatic dysfunction of cervical region Stroke-like symptom 12/2019, w/ blurry vision and dysarthria. mild R sided wkness. attending outpatient physical therapy w/ good improvement in strength (5+/5 strength of all 4 extremities as of 05/28/20) Supratherapeutic INR Thoracic ascending aortic aneurysm s/p repair TIA (transient ischemic attack) 2019--no deficits--follows with Dr. Sheikh Surgical History H/O hernia repair History of aortic valve replacement 2003 @ [facility] in [place], [place] History of appendectomy History of bilateral cataract extraction History of cardiac cath x3--2018 @ [facility] with 1 stent placed/2019 @ [facility]/last 04/2021 @ [facility] History of cholecystectomy History of colonoscopy History of esophagogastroduodenoscopy (EGD) History of fusion of cervical spine normal ROM History of gastric bypass 2007--lap band History of heart artery stent x1--2018 @ [facility] History of lumbar spinal fusion History of lung biopsy 2019 History of partial nephrectomy 1986 on right kidney History of prostate biopsy malignant History of tonsillectomy History of tooth extraction all upper teeth removed Family History Mother , age 87 of pulmonary issues Rheumatoid arthritis Father , in his mid 80s of a stroke Stroke Other Coronary heart disease No family history of adverse response to anesthesia Social History Smoking Status: Never smoker Second Hand Exposure: No; Do You Dip or Chew Tobacco: No; Hx Alcohol Use: No Hx Substance Use: No Preferred Language: Burmese Communication Ability: Effective Hearing Ability: Hard of Hearing Grinding Wheel Inspector Required: No Beliefs That Will Affect Care: None marital status: / Current Living Situation: Alone Current Living Situation Comment: lives at the [facility] current occupational status: retired 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 How many Children do You have: 2 How many Children do You have Comment: son Feels Safe at Home: Yes Assistive Devices: Glasses, Hearing Aid - Bilateral and Oxygen - at Night Review of Systems Constitutional: no fever and no chills Eyes: + blind spots; no diplopia Ear, Nose, Mouth, Throat: + hearing loss (chronic); no ear pain Respiratory: no cough and no dyspnea Cardiovascular: no chest pain and no palpitations Gastrointestinal: no nausea and no vomiting Genitourinary: no dysuria Musculoskeletal: + back pain Integumentary: no rash and no lesions Neurologic: as per Subjective / HPI and + headache(s) Psychiatric: no depression and no anxiety Hematologic / Lymphatic: + easy bruising; no easy bleeding Exam (Neuro) Constitutional: well developed and + frail appearing; + not well nourished Eyes: normal visual [place] by confrontation, PERRL and EOM intact bilaterally Cardiovascular: Vessels: no carotid bruit Neurologic: Oriented to:: Person, Place and Time Memory: Short Term Intact and Remote Intact Attention: Span Intact and Concentration Intact Speech Fluency: negative Dysarthria or Dysfluency Fund of Knowledge: Current Events, Past History and Vocabulary Cranial Nerves: Normal II, III, IV, , V, VII, VIII, IX, X, XI and XII Motor Strength: Normal Lower Extremities and Normal Upper Extremities Motor Tone: Normal Lower Extremities and Normal Upper Extremities Muscle Bulk/Involuntary Movements: Action Tremor; negative Rest Tremor (Arm) Sensation: Light Touch Intact, Pain/Temperature Intact, Vibration Intact and Proprioception Intact Coordination: Normal; negative Finger-Nose Abnormal Deep Tendon Reflexes: Rt Triceps: 2+, Lt Triceps: 2+, Rt Biceps: 2+, Lt Biceps: 2+, Rt Brachioradialis: 2+, Lt Brachioradialis: 2+, Rt Patellar: 2+, Lt Patellar: 2+, Rt Ankle: 1+ and Lt Ankle: 1+ Special Tests: negative Babinski Present Details: Gait cannot be tested Results & Data Vital Signs (Past 12 Hours) Vital Signs Temp Pulse Pulse Resp BP Pulse Ox O2 Del Method 09/10/22 11:35 36.6 C 64 18 97/58 L 98 Nasal Cannula 09/10/22 07:41 36.6 C 85 17 105/63 97 Nasal Cannula 09/10/22 07:26 86 09/10/22 02:48 36.5 C 88 16 118/72 97 Nasal Cannula O2 Flow Rate 09/10/22 11:35 2 09/10/22 07:41 2 09/10/22 07:26 09/10/22 02:48 2 Laboratory Results WBC 4.27, hemoglobin 10.6, hematocrit 32.7, MCV 89.3, platelet count 186, INR 1.4, sodium 140, potassium 3.9, BUN 30, creatinine 1.29, glucose 142, rwrow-[id number] glucose 189, calcium 8.9, magnesium 2.2, AST 22, ALT 6, troponin 10.7, total CK 88, urinalysis unremarkable, SARS-CoV-[address] testing negative Diagnostic Findings CT of the head done yesterday unremarkable, no hemorrhage or acute process, no hydrocephalus, I independently reviewed the images, see HPI. Cervical spine CT completed yesterday revealed evidence of anterior fixation hardware from C4-C5. No subluxation or acute process. I independently reviewed these images as well. I independently reviewed images pertaining to a brain MRI completed May 20, 2021, seizure protocol. Hippocampal regions appear normal bilaterally, no evidence of mesial temporal sclerosis. There are a few small foci of microhemorrhage in the cerebellum on axial T2*GRE sequences. Coronal FLAIR reveals mild chronic microvascular ischemic disease. There is no hydrocephalus. There is not appear to be significant or focal midbrain atrophy. There is no significant signal change within the denia or midbrain on axial T2. Electrocardiogram completed yesterday revealed maxillary junctional rhythm, ST and T wave abnormality, 72 bpm. An EMG completed February 08, 2022 revealed a polyneuropathy involving predominantly sensory fibers. An EEG completed December 08, 2021 was normal. No epileptiform abnormalities. EEG monitoring report from November 02, 2020 through November 04, 2020 at [facility] was reviewed. The study was unremarkable although no typical events were captured. Coding Level of Care Code 00245 INT INP/OBS CARE 3/75MIN Diagnoses Seizure disorder G40.909 Mixed action and resting tremor R25.9 Headache R51.9; G89.29 Headache chronicity pattern: chronic headache Headache type: unspecified Intractability: not intractable (3) Headache Headache chronicity pattern: chronic headache Headache type: unspecified Intractability: not intractable Qualified Code(s): R51.9 - Headache, unspecified; G89.29 - Other chronic pain
[2022-09-10 16:18] LABS: Partial Thromboplastin Ratio 2.6
[2022-09-10 16:22] LABS: Partial Thromboplastin Time 73.2 Seconds (21.0-31.0)
[2022-09-10] MEDS: WARFARIN SOD 10 MG TAB PO SCH (16:33)
[2022-09-10] MEDS ORDERED: predniSONE 20 MG TAB PO STA (19:29)
--- NOTE | 2022-09-10 19:29 | Hospitalist Progress Note ---
Date of Service September 10, 2022 Assessment & Plan (1) Fall: Plan: Had rapid heart beating/palpitations, which led to dizziness, lost balance, and fell to ground at his apartment at [facility]. Per 08/24 note patient was toe touch weight-bearing RLE will ask Dr Agarwal in am to clarify WB status PT, LAURA carvajal Patient would benefit from higher level of care at d/c - needs more assistance with meds, ambulation, etc (2) Seizure-like activity: Plan: 2nd noncompliance with Keppra and Topamax? Follows with [facility] neurology Appreciate Dr Sheikh's consult He advises to resume keppra 1000mg BID He also advises increasing topamax to 150mg BID CT head neg this admission Seizure precautions Dr Sheikh suggests potentially prolonged inpatient seizure monitoring Uncertain if epileptic events or non-epileptic events at this time (3) PAF (paroxysmal atrial fibrillation): Plan: 2 episodes of palpitations/rapid heart beating at home in the last 24 hours. 1 episode led to dizziness and his subsequent fall. Of note - had rapid A. fib during admission in Apr 2022. Continue coumadin. I corresponded with Dr Moses Chau, [facility] - his primary body technician/painter. Discussed case - he advised amiodarone 200mg daily. Formal consult placed to Dr Chau. Previous echo -- June 2021 - EF>70%, mod-severe LVH (4) Generalized weakness: Plan: Due to seizure activity, recent back surgery, deconditioning, etc No evidence of any infectious process at this time PT/OT alena I am concerned that living independently in his apartment at [facility] may not be possible May need [facility] WITH [facility] Await PT/OT alena (5) Subtherapeutic anticoagulation: Plan: - In setting of mechanical aortic heart valve. - INR 1.3, recommend continuing Heparin drip (started in ER) until he reaches therapeutic INR. - Coumadin 10 mg on Mon, Wed, Fri, Sun; 7.5 mg on , , Sat. - Monitor daily INR levels along with PTT in setting of Heparin drip. - Low threshold to consider PE work up in setting of recent surgery but defer for now I am concerned he has been noncompliant recently with his meds (6) Mechanical heart valve present: Plan: mechanical AVR on chronic coumadin with INR subtherapeutic at presentation concerning for noncompliance with meds on heparin drip bridge cont coumadin he states INR goal is 2-3 but records suggest 2.5 to 3.5 daily INR while here (7) Diabetes: Plan: - Lantus 15 units BID. - SSI coverage with gluc checks ac/hs. - Hgb A1C 7.7 on 08/24/22. (8) CAD (coronary artery disease): Plan: L main stent 2018 per records Last heart cath - [address] Vincent - L main stent patent; 20 to 30% mid LAD disease Cont asa 81mg daily Cont lipitor 40mg daily (9) Rheumatoid arthritis: Plan: On chronic Prednisone therapy 5 mg daily Will increase to 20mg/day for a few days for stress dose purposes (10) Chronic kidney disease, stage 3a: Plan: GFR 45, Creatinine baseline 1.1. BMP am (11) Parkinsonism: Plan: Likely leading to falls. Continue home Carbidopa-Levodopa. 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 stable in room air. (13) Previous back surgery: Plan: s/p open right SI joint fusion on 08/23/[address] Agarwal. Incision C/D/I; no drainage, erythema, etc Imaging w/o abnormalities today PT, OT while here (14) Abnormal bowel movement: Plan: fluctuating BMs - goes back and forth between diarrhea & constipation check KUB x-ray - assess fecal load could have constipation with overflow stooling/diarrhea Admission and Anticipated Discharge Date Admission Date: September 09, 2022 Subjective patient reports that yesterday AM (Sunday AM - middle of the night) he was awoken by palpitations heart was racing - symptoms lasted <60 seconds felt ok when he awoke yesterday am while in his apartment yesterday pm he developed rapid heart beating once again he felt dizzy he was ambulating and fell forward due to the dizziness, striking his head/chest/left knee on the ground he laid on the ground for several hours EMS ultimately was dispatched to his home As he was arriving to [facility] he apparently had generalized seizure In our ER he received IV ativan with cessation of the seizure Sometime later on while awaiting admission he had another seizure like episode lasting 1-2 minutes again terminated with IV ativan patient stated he had been feeling very tired recently and it was attributed to his keppra at some point recently his total daily dose of keppra was reduced from 2000mg to 1500mg earlier this week his INR was near 3 at home (he has INR machine at home) he is uncertain why his INR is low today he does admit he may have missed his coumadin a couple of times he does think he didn't take at least 2 doses of keppra in the last 24 hours and 2 doses of topamax as well during the visit today he c/o mild L knee pain he is very tired denies significant headache denies arm pain denies chest pain states he has no appetite tele since admission - no a.fib or other arrhythmia just had SI joint fusion on right about [address] Agarwal at [facility] [place] Review of Systems Review of Systems: gen - no fevers, no chills - tired with poor appetite pulm - no dyspnea, no cough GI - no pain or nausea but has been having fluctuating bowel movements - diarrhea, then constipation, then back/forth CV - no chest pain, no edema Physical Exam Physical Exam: gen - NAD, looks very tired, occasionally acts confused neck - no JVD mouth - MM a little dry heart - RRR, s1 s2, mechanical valve closure sound lungs - CTA b/l abd - soft, NT, ND, BS+, no HSM ext - no edema, pulses 2+ b/l musculo - passive ROM of b/l hips and b/l knees without pain; back - no bruises; midline incision is clean; incision over the right pelvic area also clean/intact psych - slightly confused Results & Data Results & Data Vital Signs (Past 12 Hours) Vital Signs Temp Pulse Pulse Resp BP Pulse Ox O2 Del Method 09/10/22 08:15 Room Air 09/10/22 15:27 36.4 C L 80 17 101/67 98 Room Air 09/10/22 15:07 85 09/10/22 11:35 36.6 C 64 18 97/58 L 98 Nasal Cannula 09/10/22 07:41 36.6 C 85 17 105/63 97 Nasal Cannula O2 Flow Rate 09/10/22 08:15 09/10/22 15:27 09/10/22 15:07 09/10/22 11:35 2 09/10/22 07:41 2 Laboratory Results Laboratory Results - last 24 hr 09/10/22 09/10/22 09/10/22 05:27 05:27 07:08 Hgb Hct PT 14.9 H INR 1.4 H APTT PTT Ratio Sodium 140 Potassium 3.9 Chloride 110 H Carbon Dioxide 23 Anion Gap 7 BUN 30 H Creatinine 1.29 Est Cr Clr Drug Dosing 57.5 Est GFR ( Amer) 61.6 Est GFR (Non-Af Amer) 53.1 BUN/Creatinine Ratio 23.3 H Glucose 142 H POC Glucose 140 H Calcium 8.9 Magnesium 2.2 Total Bilirubin 0.4 AST 22 ALT 6 L Alkaline Phosphatase 66 Total Protein 5.5 L Albumin 3.3 L Globulin 2.2 L Albumin/Globulin Ratio 1.5 09/10/22 09/10/22 09/10/22 07:40 07:47 11:30 Hgb 10.6 L Hct 32.7 L PT INR APTT 77.2 H* PTT Ratio 2.7 Sodium Potassium Chloride Carbon Dioxide Anion Gap BUN Creatinine Est Cr Clr Drug Dosing Est GFR ( Amer) Est GFR (Non-Af Amer) BUN/Creatinine Ratio Glucose POC Glucose 189 H Calcium Magnesium Total Bilirubin AST ALT Alkaline Phosphatase Total Protein Albumin Globulin Albumin/Globulin Ratio 09/10/22 09/10/22 14:52 17:28 Hgb Hct PT INR APTT 73.2 H* PTT Ratio 2.6 Sodium Potassium Chloride Carbon Dioxide Anion Gap BUN Creatinine Est Cr Clr Drug Dosing Est GFR ( Amer) Est GFR (Non-Af Amer) BUN/Creatinine Ratio Glucose POC Glucose 191 H Calcium Magnesium Total Bilirubin AST ALT Alkaline Phosphatase Total Protein Albumin Globulin Albumin/Globulin Ratio PG Care Time/CCT Total # of Minutes Spent Total Time Spent with Patient: Total time spent is greater than 50% in coordination of care (as documented) at patient's floor/unit and/or counseling patient: Coding Level of Care Code 05061 SUB INP/OBS CARE 3/50MIN Diagnoses Fall W19.XXXA Encounter type: initial encounter Seizure-like activity R56.9 PAF (paroxysmal atrial fibrillation) I48.0 Generalized weakness R53.1 Subtherapeutic anticoagulation Z51.81; Z79.01 Mechanical heart valve present Z95.2 Diabetes E11.42; Z79.4 Diabetes mellitus complication detail: with polyneuropathy Diabetes mellitus complication status: with neurologic complications Diabetes mellitus usp insulin use: with usp use Diabetes mellitus type: type 2 CAD (coronary artery disease) I25.10 Associated angina: without angina Coronary Disease-Associated Artery/Lesion type: [place] artery [place] vs. transplanted heart: [place] heart Rheumatoid arthritis M06.9 Rheumatoid arthritis location: unspecified site Rheumatoid factor presence: unspecified presence Chronic kidney disease, stage 3a N18.3 Parkinsonism G20 Interstitial lung disease J84.9 Previous back surgery Z98.890 Abnormal bowel movement R19.8 (1) Fall Encounter type: initial encounter Qualified Code(s): W19.XXXA - Unspecified fall, initial encounter (7) Diabetes Diabetes mellitus complication detail: with polyneuropathy Diabetes mellitus complication status: with neurologic complications Diabetes mellitus vermin exterminator insulin use: with vermin exterminator use Diabetes mellitus type: type 2 Qualified Cod e(s): E11.42 - Type 2 diabetes mellitus with diabetic polyneuropathy; Z79.4 - roasterman (current) use of insulin (8) CAD (coronary artery disease) Associated angina: without angina Coronary Disease-Associated Artery/Lesion type: [place] artery [place] vs. transplanted heart: [place] heart Qualified Code(s): I25.10 - Atherosclerotic heart disease of [place] coronary artery without angina pectoris (9) Rheumatoid arthritis Rheumatoid arthritis location: unspecified site Rheumatoid factor presence: unspecified presence Qualified Code(s): M06.9 - Rheumatoid arthritis, unspec ified
[2022-09-10] MEDS ORDERED: AMIODARONE 200 MG TAB PO ONE (20:10)
[2022-09-10] MEDS: GABAPENTIN 300 MG CAP PO SCH (20:43)
[2022-09-10] MEDS: allopurinoL 100 MG TAB PO SCH (20:43)
[2022-09-10] MEDS: ATORVASTATIN 40 MG TAB PO SCH (20:43)
--- NOTE | 2022-09-10 20:51 | Electrocardiogram Report ---
Test Reason : Blood Pressure : / mmHG Vent. Rate : 072 BPM Atrial Rate : 000 BPM P-R Int : 000 ms QRS Dur : 084 ms QT Int : 394 ms P-R-T Axes : 000 037 110 degrees QTc Int : 431 ms Poor data quality, interpretation may be adversely affected Sinus rhythm Abnormal ECG When compared with ECG of 03-JUL-2022 11:24, No significant change Confirmed by Shahid Cross ([id number]) on 09/10/2022 8:51:03 PM Referred By: Confirmed By:Shahid Cross
[2022-09-10 23:43] LABS: Partial Thromboplastin Ratio 2.5
[2022-09-11 00:33] LABS: Partial Thromboplastin Time 71.5 Seconds (21.0-31.0)
[2022-09-11] MEDS: HEPARIN SODIUM/DEXTROSE 25,000 UNITS/500 ML BAG IV SCH (05:50)
[2022-09-11] MEDS: predniSONE 20 MG TAB PO SCH (07:43)
[2022-09-11] MEDS: ASPIRIN 81 MG ECTAB PO SCH (07:43)
[2022-09-11] MEDS: AMIODARONE 200 MG TAB PO SCH (07:43)
[2022-09-11 07:44] LABS: Base Excess VBG -1.3 mEq/L; HCO3 VBG 24 mmol/L; Oxygen Saturation VBG < 60.0 %; PCO2 VBG 40 mmHg (38-50); PO2 VBG 28 mmHg; pH VBG 7.38 (7.36-7.41)
[2022-09-11] MEDS: CARBIDOPA/LEVODOPA 25/100MG TAB PO SCH ×3 (07:44→21:05)
[2022-09-11] MEDS: POLYETHYLENE (MIRALAX) 17 GM PACK PO SCH (07:44)
[2022-09-11] MEDS: FINASTERIDE 5 MG TAB PO SCH (07:45)
[2022-09-11] MEDS: GABAPENTIN 600 MG TAB PO SCH (07:45)
[2022-09-11] MEDS: FLUTICASONE/VILANTEROL 100/25MCG 14 PUFFS/INHALER INH SCH (07:45)
[2022-09-11] MEDS: PANTOprazole 40 MG TAB PO SCH (07:45)
[2022-09-11] MEDS: levETIRAcetam 1,000 MG in 0.9 % SODIUM CHLORIDE 100 ML IV SCH ×2 (07:46→21:03)
[2022-09-11] MEDS: TOPIRAMATE 50 MG TAB PO SCH ×2 (07:46→21:07)
[2022-09-11] MEDS: UMECLIDINIUM BROMIDE 62.5MCG/BLISTER 7 PUFFS/INHALER INH SCH (07:48)
--- NOTE | 2022-09-11 07:48 | XRay Report ---
KUB CLINICAL HISTORY: Diarrhea and constipation. FINDINGS: 3 AP, portable, supine abdominal radiographs are compared to study dated 10/14/2021 and gino elated with abdominal CT dated 09/09/2022. A gastric band is in place. There is a nonobstructed abdomi nal bowel gas pattern. Moderate fecal retention is seen in the right colon. No evidence of intraperit lozano free air is identified on these supine images. Surgical clips are present in the upper abdomen bilaterally. There are no abnormal abdominal calcifications. The skeletal structures are osteopenic a nd appear intact. Degenerative and postsurgical change is noted throughout the lumbar spine. There is evidence of right sacroiliac joint fusion. Metallic implants project over the prostate gland. [place] e sternotomy wires are noted and the heart is enlarged. IMPRESSION: No acute abnormality is identified. Electronically signed by: Tan Burleson M.D. 09/11/2022 7:47 AM
[2022-09-11 07:57] LABS: BUN Creatinine Ratio 20.8 (10-20); C Reactive Protein 0.79 mg/dl (0-0.5); Calcium 9.1 mg/dl (8.6-10.3); Creatinine Clr Calc Pharmacy 59.4 ml/min; Est GFR (Non-African American) 55.2 ml/min; Potassium 4.7 mmol/L (3.5-5.1)
[2022-09-11 08:06] LABS: INR 1.6 (0.9-1.1); Partial Thromboplastin Ratio 2.7; Prothrombin Time 16.9 Seconds (9.0-12.0)
[2022-09-11] MEDS: LANTUS PER UNIT CHARGE SQ SCH ×2 (08:10→21:08)
[2022-09-11] MEDS: INSULIN ASPART PER UNIT CHARGE SC SCH ×4 (08:10→21:08)
[2022-09-11 08:18] LABS: Partial Thromboplastin Time 75.4 Seconds (21.0-31.0)
--- NOTE | 2022-09-11 08:40 | Cardiology Consultation ---
Date of Consultation September 11, 2022 Assessment & Plan (1) Fall: (2) PAF (paroxysmal atrial fibrillation): (3) Subtherapeutic anticoagulation: (4) Mechanical heart valve present: (5) CAD (coronary artery disease): Plan History includes: 1.Status post mechanical aortic valve and aortic conduit for a dissection in 2003 (unknown if this was a Bentall procedure). 2.History of left main stent 02/2019. 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 4. Multiple TIAs. 5. Chronic anticoagulation secondary to atrial fibrillation and his mechanical AVR with a goal INR 2.5 to 3.5 with 81 mg of aspirin. 6. Previously thought to have a rheumatologic disorder and polymyositis and interstitial lung disease but with evaluation by multiple providers he is not thought to have a rheumatologic disorder. 7. Parkinson's disease. 8. Diabetes mellitus type 2. 9. Chronic Coumadin anticoagulation. 10. Multiple falls. Mr. Bradford was started on amiodarone for his rapid heart beat sensed before his fall. He does have a history of paroxysmal atrial fibrillation. There was no particular trigger that he was aware of but he is about 3 weeks out from his surgery. Electrolytes were normal on admission. His INR was subtherapeutic on admission. He only remembers missing 1 dose of warfarin which was the night before. His INR will need to be closely monitored with the addition of amiodarone. He continues on heparin gtt until therapeutic. High sensitivity troponin was normal. No concerning anginal symptoms. He continues on 81 mg daily aspirin. His blood pressure runs on the low side of normal. He is not currently taking antihypertensives but is taking furosemide daily. As far as his clinic visits go, he has not demonstrated any hypotension but certainly as he is post op hypotension could be intermittently playing a role in his falls. We will leave his furosemide as it is for now. History of Present Illness Attending Physician: Toni Kelly MD History of Present Illness Mr. Bradford presentsed to the ED 09/09 after a fall. He had experienced a rapid heart beat just before and became dizzy and fell. He did hit his head but does not think he lost consciousness. He had seizure like activity in the ED which he attributes to known triggers for him of fluorescent lights and shivering. He has has been living at [place] for PT as he is post open right SI joint fusion on 08/23/22, completed by Dr. Agarwal. He has been in sinus rhythm since arriving at the hospital. Today he has no complaints of sob, chest pain, palpitations, dizziness or edema. He does note intermittent confusion Allergies Allergy/AdvReac Type Severity Reaction Status Date / Time bee venom protein (honey bee) Allergy Severe anaphylaxis Verified 09/09/22 15:26 Iodinated Contrast Media Allergy Severe Anaphylaxis Verified 09/09/22 15:26 shellfish derived Allergy Severe Anaphylaxis Verified 09/09/22 15:26 doxazosin Allergy Intermediate Rash Verified 09/09/22 15:26 tamsulosin [From Flomax] Allergy Intermediate Itching Verified 09/09/22 15:26 Tetanus Vaccines and Toxoid Allergy Unknown Unknown Verified 09/09/22 15:26 lamotrigine AdvReac Intermediate Confusion Verified 09/09/22 15:26 oxycodone [From Percocet] AdvReac Intermediate nausea/vomi Verified 09/09/22 15:26 ting propoxyphene [From Darvon] AdvReac Intermediate nausea/vomi Verified 09/09/22 15:26 ting Home Medications Medication Instructions Recorded Confirmed Type atorvastatin 40 mg tablet 40 mg PO HS 05/28/20 09/09/22 History fexofenadine 180 mg tablet 180 mg PO QAM 02/11/21 09/09/22 History (Karlee Allergy) allopurinol 100 mg tablet 100 mg PO HS 04/10/21 09/09/22 History cholecalciferol (vitamin D3) 50 4,000 unit PO HS 07/14/21 09/09/22 History mcg (2,000 unit) capsule (Vitamin D3) insulin glargine 100 unit/mL (3 15 unit subcut BID 07/26/21 09/09/22 History mL) subcutaneous pen (Lantus Solostar U-100 Insulin) acetaminophen 325 mg tablet 650 mg PO Q4H PRN pain #30 tabs 08/04/21 09/09/22 Rx aspirin 81 mg tablet,delayed 81 mg PO QAM #30 tabs 08/04/21 09/09/22 Rx release fluticasone fur. 100 mcg-umeclid 1 inh inhalation QAM #60 ea 09/06/21 09/09/22 Rx 62.5 mcg-vilant 25 mcg inhalat.powder (Trelegy Ellipta) albuterol sulfate 90 mcg/actuation 2 puff inhalation Q4H PRN 09/27/21 09/09/22 History aerosol inhaler (Ventolin HFA) Shortness Of Breath Or Wheezing polyethylene glycol 3350 17 17 g PO BID PRN Constipation 10/04/21 09/09/22 History gram/dose oral powder (Miralax) furosemide 20 mg tablet 20 mg PO QAM 11/24/21 09/09/22 History sennosides 8.6 mg tablet (Senokot) 17.2 mg PO QAM 11/24/21 09/09/22 History warfarin 5 mg tablet See Rx Instructions .Route .COMPLEX 11/24/21 09/09/22 History topiramate 100 mg tablet (Topamax) 100 mg PO BID 30 days #180 tabs 12/29/21 09/09/22 Rx insulin aspart U-100 100 unit/mL 1 sliding scale dose subcut ACHS 02/26/22 09/09/22 History (3 mL) subcutaneous pen (Novolog FlexPen U-100 Insulin aspart) diclofenac sodium 1 % topical gel 2 g topical DAILY 05/21/22 09/09/22 History (Voltaren Arthritis Pain) ferrous sulfate 325 mg (65 mg 325 mg PO QAM #30 tabs 05/26/22 09/09/22 Rx iron) tablet,delayed release sodium chloride 0.65 % nasal spray 2 spray NA QID #10 mL 05/26/22 09/09/22 Rx aerosol (Saline Mist) levetiracetam 500 mg tablet 1,000 mg PO BID #360 tabs 08/03/22 09/09/22 Rx (Keppra) cyanocobalamin (vitamin B-12) 1,000 mcg PO QAM 08/14/22 09/09/22 History 1,000 mcg tablet,extended release (Vitamin B-12 ER) gabapentin 300 mg capsule 300 - 600 mg PO BID 08/14/22 09/09/22 History magnesium 250 mg tablet 250 mg PO QAM 08/14/22 09/09/22 History pantoprazole 20 mg tablet,delayed 20 mg PO QAM 08/14/22 09/09/22 History release (Protonix) potassium chloride 20 mEq 20 meq PO HS 08/14/22 09/09/22 History tablet,extended release prednisone 5 mg tablet 5 mg PO QAM 08/14/22 09/09/22 History carbidopa 25 mg-levodopa 100 mg 1 tab PO TID 08/23/22 09/09/22 History tablet (Sinemet) finasteride 5 mg tablet (Proscar) 5 mg PO QAM 08/23/22 09/09/22 History ondansetron 4 mg disintegrating 4 mg PO Q6H PRN nausea and 08/24/22 09/09/22 Rx tablet vomiting #30 tabs oxycodone 5 mg tablet 5 mg PO DAILY PRN pain #20 tabs 08/24/22 09/09/22 Rx tramadol 50 mg tablet 50 mg PO Q6H PRN pain, moderate 08/24/22 09/09/22 Rx #30 tabs Patient History Medical History Anemia history of blood transfusion, 2020 Anxiety Aortic ectasia, thoracic Aspiration pneumonia hx of--per pt was due to pain medications Asthma inhaler daily and prn CAD (coronary artery disease) follows with Dr. Chau Chronic dyspnea Chronic kidney disease, stage 3a Chronic pulmonary aspiration Chronic respiratory failure with hypoxia Chronic use of steroids Constipated Current use of snf anticoagulation warfarin daily Depression Diabetes IDDM Diabetic peripheral neuropathy Dysphagia Edema Generalized weakness Gout Hearing deficit Heart failure > 70% History of seizures last 2019--on Keppra/Topiramate--follows with Dr. 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 mild R sided wkness. attending outpatient physical therapy w/ good improvement in strength (5+/5 strength of all 4 extremities as of 05/28/20) Supratherapeutic INR Thoracic ascending aortic aneurysm s/p repair TIA (transient ischemic attack) 2019--no deficits--follows with Dr. Sheikh Surgical History H/O hernia repair History of aortic valve replacement 2004 @ [facility] in [place], [place] History of appendectomy History of bilateral cataract extraction History of cardiac cath x3--2018 @ [facility] with 1 stent placed/2019 @ [facility]/last 04/2021 @ [facility] History of cholecystectomy History of colonoscopy History of esophagogastroduodenoscopy (EGD) History of fusion of cervical spine normal ROM History of gastric bypass 2007--lap band History of heart artery stent x1--2017 @ [facility] History of lumbar spinal fusion History of lung biopsy 2019 History of partial nephrectomy 1986 on right kidney History of prostate biopsy malignant History of tonsillectomy History of tooth extraction all upper teeth removed Family History Mother , age 87 of pulmonary issues Rheumatoid arthritis Father , in his mid 80s of a stroke Stroke Other Coronary heart disease No family history of adverse response to anesthesia Social History Smoking Status: Never smoker Second Hand Exposure: No; Do You Dip or Chew Tobacco: No; Hx Alcohol Use: No Hx Substance Use: No Preferred Language: Martiniquais Communication Ability: Effective Hearing Ability: Hard of Hearing Supervisor Major Appliance Assembly Required: No Beliefs That Will Affect Care: None marital status: / Current Living Situation: Alone Current Living Situation Comment: [facility] 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 How many Children do You have: 2 How many Children do You have Comment: son Feels Safe at Home: Yes Assistive Devices: Scooter/Electric Scooter, Walker and Other Review of Systems Review of Systems: All systems reviewed & are unremarkable except as noted in HPI & below Physical Exam Constitutional: WD/WN, vitals as above Respiratory: normal respiratory effort, lungs clear to auscultation Cardiovascular: Rate/Rhythm: regular rate and regular rhythm Heart Sounds: + click (mechanical valve ) Extremities: no edema Skin: + pallor; no rashes Neurologic: moves all extremities and awake Psychiatric: A+Ox3, euthymic affect Results & Data Vital Signs (Past 12 Hours) Vital Signs Temp Pulse Pulse Resp BP Pulse Ox O2 Del Method 09/11/22 08:09 36.4 C L 60 19 114/65 95 Room Air 09/11/22 03:00 36.8 C 79 20 100/78 98 Room Air 09/11/22 00:42 63 09/10/22 21:00 Room Air 09/10/22 22:50 36.5 C 66 16 99/63 L 93 Room Air (1) Fall Encounter type: initial encounter Qualified Code(s): W19.XXXA - Unspecified fall, initial encounter (5) CAD (coronary artery disease) Coronary Disease-Associated Artery/Lesion type: [place] artery [place] vs. transplanted heart: [place] heart Associated angina: without angina Qualified Code(s): I25.10 - Atherosclerotic heart disease of [place] coronary artery without angina pectoris
[2022-09-11 15:52] LABS: Partial Thromboplastin Ratio 2.1
[2022-09-11 16:09] LABS: Partial Thromboplastin Time 59.5 Seconds (21.0-31.0)
[2022-09-11] MEDS: WARFARIN SOD 10 MG TAB PO SCH (17:37)
[2022-09-11] MEDS: ATORVASTATIN 40 MG TAB PO SCH (21:05)
[2022-09-11] MEDS: GABAPENTIN 300 MG CAP PO SCH (21:06)
[2022-09-11] MEDS: allopurinoL 100 MG TAB PO SCH (21:06)
[2022-09-12] MEDS: HEPARIN SODIUM/DEXTROSE 25,000 UNITS/500 ML BAG IV SCH ×3 (05:59→08:51)
[2022-09-12 06:19] LABS: Basophils # (auto) 0.05 K/uL (0-0.2); Eosinophils # (auto) 0.12 K/uL (0-0.50); Eosinophils % (auto) 2.4 %; Hematocrit (blood only) 34.1 % (42.0-52.0); Hemoglobin 10.7 g/dl (14.0-18.0); Immature Granulocytes # (auto) 0.04 K/uL (0.01-0.20); Immature Granulocytes % (auto) 0.8 %; Lymphocytes # (auto) 1.15 K/uL (1.2-3.4); Lymphocytes % (auto) 23.1 %; Mean Corpuscular Hemoglobin 27.9 pg (25.0-34.0); Mean Corpuscular Hgb Conc 31.4 g/dL (32.0-36.0); Mean Corpuscular Volume 88.8 fL (80.0-100.0); Mean Platelet Volume 10.1 fL (9.4-12.4); Monocytes # (auto) 0.28 K/uL (0.11-0.59); Monocytes % (auto) 5.6 %; Neutrophils # (auto) 3.34 K/uL (1.40-6.50); Neutrophils % (auto) 67.1 %; Platelet Count 177 K/uL (130-400); RDW Coefficient of Variation 14.9 % (11.5-14.5); RDW Standard Deviation 48.1 fL (36.4-46.3); Red Blood Count 3.84 M/uL (4.70-6.10); White Blood Count 4.98 K/ul (4.8-10.8)
[2022-09-12 06:31] LABS: Calcium 9.1 mg/dl (8.6-10.3); Creatinine Clr Calc Pharmacy 53.8 ml/min; Est GFR (African American) 58.3 ml/min; Est GFR (Non-African American) 50.3 ml/min; Potassium 3.9 mmol/L (3.5-5.1)
[2022-09-12 06:43] LABS: INR 2.3 (0.9-1.1); Prothrombin Time 23.5 Seconds (9.0-12.0)
[2022-09-12 07:06] LABS: Partial Thromboplastin Ratio 2.6
--- NOTE | 2022-09-12 07:20 | Hospitalist Progress Note ---
Date of Service September 12, 2022 Assessment & Plan (1) Fall: Plan: Pre-admission had rapid heart beating/palpitations, which led to dizziness, lost balance, and fell to ground at his apartment at [facility]. Per 08/24 note patient was toe touch weight-bearing RLE in the setting of recent right SI joint fusion surgery will ask Dr Agarwal to clarify WB status PT, OT alena Patient would benefit from higher level of care at d/c - needs more assistance with meds, ambulation, etc (2) Seizure-like activity: Plan: 2nd noncompliance with Keppra and Topamax? Follows with [facility] neurology Appreciate Dr Sheikh's consult He advises to resume keppra 1000mg BID He also advises increasing topamax to 150mg BID - this was increased today CT head neg this admission Seizure precautions Had what sounds like pseudoseizure this am Dr Sam made aware of today's event Prolactin checked - minimally elevated Topamax and Keppra levels sent STAT Dr Sheikh suggests potentially prolonged inpatient seizure monitoring Uncertain if epileptic events or non-epileptic events at this time but in the past it was suspected to be non-epileptic events (3) PAF (paroxysmal atrial fibrillation): Plan: 2 episodes of palpitations/rapid heart beating at home prior to admission. 1 episode led to dizziness and his subsequent fall. Of note - had rapid A. fib during admission in Apr 2022. Continue coumadin. Appreciate Dr Chau's consultation. STARTED amiodarone 200mg daily. Watch INR carefully due to possible potentiation of coumadin from the amiodarone. Previous echo -- June 2021 - EF>70%, mod-severe LVH Tele thus far since admission without arrhythmia. (4) Generalized weakness: Plan: Due to seizure activity, recent back surgery, deconditioning, depression, etc No evidence of any infectious process at this time PT/OT alena I am concerned that living independently in his apartment at [facility] may not be possible May need [facility] Await PT/OT alena (5) Subtherapeutic anticoagulation: Plan: - In setting of mechanical aortic heart valve. - INR still <2; recommend continuing Heparin drip until he reaches therapeutic INR (2.5 to 3.5). - Coumadin 10 mg on Mon, Wed, Fri, Sun; 7.5 mg on , , Sat. - Monitor daily INR levels along with PTT in setting of Heparin drip. I am concerned he has been noncompliant recently with his meds (6) Mechanical heart valve present: Plan: mechanical AVR on chronic coumadin with INR subtherapeutic at presentation concerning for noncompliance with meds on heparin drip bridge cont coumadin he states INR goal is 2-3 but records suggest 2.5 to 3.5 daily INR while here (7) Diabetes: Plan: uncontrolled increase lantus to 20 units BID. tighten novolog coverage to 15 CF and 1:5 carb ratio Hgb A1C 7.7 on 08/24/22. (8) CAD (coronary artery disease): Plan: L main stent 2018 per records Last heart cath - [address] Vincent - L main stent patent; 20 to 30% mid LAD disease Cont asa 81mg daily Cont lipitor 40mg daily (9) Rheumatoid arthritis: Plan: On chronic Prednisone therapy 5 mg daily Increased prednisone to 20mg/day for a few days for stress dose purposes (10) Chronic kidney disease, stage 3a: Plan: GFR 45, Creatinine baseline 1.1. BMP am while here (11) Parkinsonism: Plan: Likely leading to falls. Continue home Carbidopa-Levodopa. 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 stable in room air. need to watch amiodarone use carefully in light of his pre-existing lung condition. (13) Previous back surgery: Plan: s/p open right SI joint fusion on 08/23/[address] Agarwal. 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 thus will ask psych to see for their input he would benefit from counseling and/or pastoral care as he voices he has a strong robin in GOD he is very lonely - if he could get transportation to [facility] the [facility] this would be a good outlet would be a good candidate for assisted living - would feel more connected as he is currently alone in his apartment at the [facility] Plan updated pt's son locally by phone this pm Admission and Anticipated Discharge Date Admission Date: September 09, 2022 Subjective this am patient had a 1-2 min episode of "seizure activity" apparently he was sitting in the chair he remembers most of the event he felt cold since he was near the window he started shaking because he was cold staff states he was acting odd but eyes were open and his arms were shaking given ativan x 1 and he "started to come around" and began to talk patient states he was somewhat awake during the event he further states "these events (seizure like activity) only happen here - they don't happen anywhere else" "please don't take my license away" (Drivers license) pt voices ongoing issues with constipation voices SEVERE depression started when his 5 years ago when they were living in the [place] [facility] he then moved to [place] and was living with his son/daughter in law he alludes to having a falling out or strained relationship with both his son and daughter in law he feels that they "kicked him out" of their house he is lonely, stating he doesn't see his son that much who lives locally he feels he doesn't fit in at [facility]; feels isolated doesn't have friends or activities he partakes in he also has 2 sons that live out of town and he has not seen either in years (and doesn't talk to them but rarely) tele overnight - NSR, no PAF or SVT Review of Systems Review of Systems: gen - poor appetite, fatigue; no fevers cv - no chest pain pulm - no dyspnea GI - constipation; no nausea or emesis psych - depression, anxiety Physical Exam Physical Exam: gen - NAD, depressed/flat affect; cried at one point neck - no JVD mouth - MMM heart - RRR, s1 s2, mechanical valve closure sound lungs - CTA b/l abd - soft, NT, ND, BS+, no HSM ext - no edema, pulses 2+ b/l psych - awake/alert x 3, flat affect, tearful Results & Data Results & Data Vital Signs (Past 12 Hours) Vital Signs Temp Pulse Pulse Resp BP Pulse Ox O2 Del Method 09/11/22 22:36 36.5 C 62 18 98/64 L 97 Room Air Laboratory Results Laboratory Results - last 48 hr 09/10/22 09/10/22 09/10/22 05:27 05:27 07:40 WBC RBC Hgb Hct MCV MCH MCHC RDW Std Deviation RDW Coeff of Lianne Plt Count MPV Immature Gran % (Auto) Neut % (Auto) Lymph % (Auto) Sac % (Auto) Eos % (Auto) Baso % (Auto) Neut # (Auto) Lymph # (Auto) Sac # (Auto) Eos # (Auto) Baso # (Auto) Immature Gran # (Auto) PT 14.9 H INR 1.4 H APTT 77.2 H* PTT Ratio 2.7 VBG pH VBG pCO2 VBG pO2 VBG HCO3 VBG O2 Saturation VBG Base Excess Sodium Potassium Chloride Carbon Dioxide Anion Gap BUN Creatinine Est Cr Clr Drug Dosing Est GFR ( Amer) Est GFR (Non-Af Amer) BUN/Creatinine Ratio Glucose POC Glucose Calcium Magnesium 2.2 Ammonia C-Reactive Protein Prolactin 09/10/22 09/10/22 09/10/22 07:47 11:30 14:52 WBC RBC Hgb 10.6 L Hct 32.7 L MCV MCH MCHC RDW Std Deviation RDW Coeff of Lianne Plt Count MPV Immature Gran % (Auto) Neut % (Auto) Lymph % (Auto) Sac % (Auto) Eos % (Auto) Baso % (Auto) Neut # (Auto) Lymph # (Auto) Sac # (Auto) Eos # (Auto) Baso # (Auto) Immature Gran # (Auto) PT INR APTT 73.2 H* PTT Ratio 2.6 VBG pH VBG pCO2 VBG pO2 VBG HCO3 VBG O2 Saturation VBG Base Excess Sodium Potassium Chloride Carbon Dioxide Anion Gap BUN Creatinine Est Cr Clr Drug Dosing Est GFR ( Amer) Est GFR (Non-Af Amer) BUN/Creatinine Ratio Glucose POC Glucose 189 H Calcium Magnesium Ammonia C-Reactive Protein Prolactin 09/10/22 09/10/22 09/10/22 17:28 20:17 22:38 WBC RBC Hgb Hct MCV MCH MCHC RDW Std Deviation RDW Coeff of Lianne Plt Count MPV Immature Gran % (Auto) Neut % (Auto) Lymph % (Auto) Sac % (Auto) Eos % (Auto) Baso % (Auto) Neut # (Auto) Lymph # (Auto) Sac # (Auto) Eos # (Auto) Baso # (Auto) Immature Gran # (Auto) PT INR APTT 71.5 H* PTT Ratio 2.5 VBG pH VBG pCO2 VBG pO2 VBG HCO3 VBG O2 Saturation VBG Base Excess Sodium Potassium Chloride Carbon Dioxide Anion Gap BUN Creatinine Est Cr Clr Drug Dosing Est GFR ( Amer) Est GFR (Non-Af Amer) BUN/Creatinine Ratio Glucose POC Glucose 191 H 204 H Calcium Magnesium Ammonia C-Reactive Protein Prolactin 09/11/22 09/11/22 09/11/22 06:31 06:31 06:31 WBC RBC Hgb Hct MCV MCH MCHC RDW Std Deviation RDW Coeff of Lianne Plt Count MPV Immature Gran % (Auto) Neut % (Auto) Lymph % (Auto) Sac % (Auto) Eos % (Auto) Baso % (Auto) Neut # (Auto) Lymph # (Auto) Sac # (Auto) Eos # (Auto) Baso # (Auto) Immature Gran # (Auto) PT Cancelled 16.9 H INR Cancelled 1.6 H APTT 75.4 H* PTT Ratio 2.7 VBG pH VBG pCO2 VBG pO2 VBG HCO3 VBG O2 Saturation VBG Base Excess Sodium 137 Potassium 4.7 D Chloride 108 H Carbon Dioxide 22 Anion Gap 7 BUN 26 H Creatinine 1.25 Est Cr Clr Drug Dosing 59.4 Est GFR ( Amer) 64.0 Est GFR (Non-Af Amer) 55.2 BUN/Creatinine Ratio 20.8 H Glucose 247 H POC Glucose Calcium 9.1 Magnesium Ammonia C-Reactive Protein 0.79 H Prolactin 09/11/22 09/11/22 09/11/22 07:18 07:34 07:34 WBC RBC Hgb Hct MCV MCH MCHC RDW Std Deviation RDW Coeff of Lianne Plt Count MPV Immature Gran % (Auto) Neut % (Auto) Lymph % (Auto) Sac % (Auto) Eos % (Auto) Baso % (Auto) Neut # (Auto) Lymph # (Auto) Sac # (Auto) Eos # (Auto) Baso # (Auto) Immature Gran # (Auto) PT INR APTT PTT Ratio VBG pH 7.38 VBG pCO2 40 VBG pO2 28 VBG HCO3 24 VBG O2 Saturation < 60.0 VBG Base Excess -1.3 Sodium Potassium Chloride Carbon Dioxide Anion Gap BUN Creatinine Est Cr Clr Drug Dosing Est GFR ( Amer) Est GFR (Non-Af Amer) BUN/Creatinine Ratio Glucose POC Glucose 254 H Calcium Magnesium Ammonia 22.0 C-Reactive Protein Prolactin 09/11/22 09/11/22 09/11/22 10:41 11:02 14:43 WBC RBC Hgb Hct MCV MCH MCHC RDW Std Deviation RDW Coeff of Lianne Plt Count MPV Immature Gran % (Auto) Neut % (Auto) Lymph % (Auto) Sac % (Auto) Eos % (Auto) Baso % (Auto) Neut # (Auto) Lymph # (Auto) Sac # (Auto) Eos # (Auto) Baso # (Auto) Immature Gran # (Auto) PT INR APTT 59.5 H* PTT Ratio 2.1 VBG pH VBG pCO2 VBG pO2 VBG HCO3 VBG O2 Saturation VBG Base Excess Sodium Potassium Chloride Carbon Dioxide Anion Gap BUN Creatinine Est Cr Clr Drug Dosing Est GFR ( Amer) Est GFR (Non-Af Amer) BUN/Creatinine Ratio Glucose POC Glucose 275 H Calcium Magnesium Ammonia C-Reactive Protein Prolactin 17.90 09/11/22 16:04 WBC RBC Hgb Hct MCV MCH MCHC RDW Std Deviation RDW Coeff of Lianne Plt Count MPV Immature Gran % (Auto) Neut % (Auto) Lymph % (Auto) Sac % (Auto) Eos % (Auto) Baso % (Auto) Neut # (Auto) Lymph # (Auto) Sac # (Auto) Eos # (Auto) Baso # (Auto) Immature Gran # (Auto) PT INR APTT PTT Ratio VBG pH VBG pCO2 VBG pO2 VBG HCO3 VBG O2 Saturation VBG Base Excess Sodium Potassium Chloride Carbon Dioxide Anion Gap BUN Creatinine Est Cr Clr Drug Dosing Est GFR ( Amer) Est GFR (Non-Af Amer) BUN/Creatinine Ratio Glucose POC Glucose 304 H* Calcium Magnesium Ammonia C-Reactive Protein Prolactin PG Care Time/CCT Total # of Minutes Spent Total Time Spent with Patient: Total time spent is greater than 50% in coordination of care (as documented) at patient's floor/unit and/or counseling patient: Coding Level of Care Code 91890 SUB INP/OBS CARE 50MIN Diagnoses Fall W19.XXXA Encounter type: initial encounter Seizure-like activity R56.9 PAF (paroxysmal atrial fibrillation) I48.0 Generalized weakness R53.1 Subtherapeutic anticoagulation Z51.81; Z79.01 Mechanical heart valve present Z95.2 Diabetes E11.42; Z79.4 Diabetes mellitus type: type 2 Diabetes mellitus terminal gauger supervisor insulin use: with jail use Diabetes mellitus complication status: with neurologic complications Diabetes mellitus complication detail: with polyneuropathy CAD (coronary artery disease) I25.10 Coronary Disease-Associated Artery/Lesion type: [place] artery [place] vs. transplanted heart: [place] heart Associated angina: without angina Rheumatoid arthritis M06.9 Rheumatoid arthritis location: unspecified site Rheumatoid factor presence: unspecified presence Chronic kidney disease, stage 3a N18.3 Parkinsonism G20 Interstitial lung disease J84.9 Previous back surgery Z98.890 Abnormal bowel movement R19.8 Depression F32.A (1) Fall Encounter type: initial encounter Qualified Code(s): W19.XXXA - Unspecified fall, initial encounter (7) Diabetes Diabetes mellitus type: type 2 Diabetes mellitus terminal gauger supervisor insulin use: with terminal gauger supervisor use Diabetes mellitus complication status: with neurologic complications Diabetes mellitus complication detail: with polyneuropathy Qualified Code(s): E11.42 - Type 2 diabetes mellitus with diabetic polyneuropathy; Z79.4 - manager terminal (current) use of insulin (8) CAD (coronary artery disease) Coronary Disease-Associated Artery/Lesion type: [place] artery [place] vs. transplanted heart: [place] heart Associated angina: without angina Qualified Code(s): I25.10 - Atherosclerotic heart disease of [place] coronary artery without angina pectoris (9) Rheumatoid arthritis Rheumatoid arthritis location: unspecified site Rheumatoid factor presence: unspecified presence Qualified Code(s): M06.9 - Rheumatoid arthritis, unspecified
[2022-09-12 07:40] LABS: Partial Thromboplastin Time 72.7 Seconds (21.0-31.0)
[2022-09-12] MEDS: AMIODARONE 200 MG TAB PO SCH (08:27)
[2022-09-12] MEDS: CARBIDOPA/LEVODOPA 25/100MG TAB PO SCH ×3 (08:28→21:30)
[2022-09-12] MEDS: FINASTERIDE 5 MG TAB PO SCH (08:28)
[2022-09-12] MEDS: ASPIRIN 81 MG ECTAB PO SCH (08:28)
[2022-09-12] MEDS: GABAPENTIN 600 MG TAB PO SCH (08:29)
[2022-09-12] MEDS: FLUTICASONE/VILANTEROL 100/25MCG 14 PUFFS/INHALER INH SCH (08:29)
[2022-09-12] MEDS: levETIRAcetam 1,000 MG in 0.9 % SODIUM CHLORIDE 100 ML IV SCH (08:29)
[2022-09-12] MEDS: POLYETHYLENE (MIRALAX) 17 GM PACK PO SCH (08:30)
[2022-09-12] MEDS: predniSONE 20 MG TAB PO SCH (08:30)
[2022-09-12] MEDS: TOPIRAMATE 50 MG TAB PO SCH ×2 (08:30→21:29)
[2022-09-12] MEDS: PANTOprazole 40 MG TAB PO SCH (08:30)
[2022-09-12] MEDS: UMECLIDINIUM BROMIDE 62.5MCG/BLISTER 7 PUFFS/INHALER INH SCH (08:31)
[2022-09-12] MEDS: LACTULOSE SYRUP 20 GM/30 ML UDC PO SCH (08:33)
[2022-09-12] MEDS: LANTUS PER UNIT CHARGE SQ SCH ×2 (08:39→21:10)
[2022-09-12] MEDS: INSULIN ASPART PER UNIT CHARGE SC SCH ×5 (08:39→21:10)
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
--- NOTE | 2022-09-12 12:42 | Cardiology Progress Note ---
Date of Service September 12, 2022 Assessment & Plan (1) Fall: (2) PAF (paroxysmal atrial fibrillation): (3) Subtherapeutic anticoagulation: (4) Mechanical heart valve present: (5) CAD (coronary artery disease): Plan History includes: 1.Status post mechanical aortic valve and aortic conduit for a dissection in 2003 (unknown if this was a Bentall procedure). 2.History of left main stent 02/2019. 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 4. Multiple TIAs. 5. Chronic anticoagulation secondary to atrial fibrillation and his mechanical AVR with a goal INR 2.5 to 3.5 with 81 mg of aspirin. 6. Previously thought to have a rheumatologic disorder and polymyositis and interstitial lung disease but with evaluation by multiple providers he is not thought to have a rheumatologic disorder. 7. Parkinson's disease. 8. Diabetes mellitus type 2. 9. Chronic Coumadin anticoagulation. 10. Multiple falls. Mr. Bradford was started on amiodarone for his rapid heart beat sensed before his fall. He does have a history of paroxysmal atrial fibrillation. There was no particular trigger that he was aware of but he is about 3 weeks out from his surgery. Electrolytes were normal on admission. He will need an EKG a week after starting the amiodarone to follow his QTc. His INR was subtherapeutic on admission and he is being bridged with heparin. He is 2.3 today. His INR goal is 2.5 - 3.5. His INR will need to be watched closely with starting amiodarone. High sensitivity troponin was normal. No concerning anginal symptoms. He continues on 81 mg daily aspirin. His blood pressure runs on the low side of normal/mildly hypotensive. Furosemide is held for now Cardiology will sign off at this time. Please don't hesitate to reach out if new issues arise. Admission and Anticipated Discharge Date Admission Date: September 09, 2022 Subjective Mr. Bradford appears stable as far his cardiac status. No episodes on telemetry. No sob, chest pain, palpitations or edema. Review of Systems Review of Systems: All systems reviewed & are unremarkable except as noted in HPI & below Physical Exam Constitutional: WD/WN, vitals as above Respiratory: normal respiratory effort, lungs clear to auscultation Cardiovascular: Rate/Rhythm: regular rate and regular rhythm Heart Sounds: + click (mechanical valve ) Extremities: no edema Skin: + pallor; no rashes Neurologic: moves all extremities and awake Psychiatric: A+Ox3, euthymic affect Results & Data Vital Signs (Past 12 Hours) Vital Signs Temp Pulse Resp BP Pulse Ox O2 Del Method 09/12/22 12:09 36.4 C L 80 18 101/65 99 Room Air 09/12/22 07:45 36.5 C 72 20 121/66 97 Room Air 09/12/22 02:54 36.6 C 67 16 107/68 95 Room Air (1) Fall Encounter type: initial encounter Qualified Code(s): W19.XXXA - Unspecified fall, initial encounter (5) CAD (coronary artery disease) Associated angina: without angina Coronary Disease-Associated Artery/Lesion type: [place] artery [place] vs. transplanted heart: [place] heart Qualified Code(s): I25.10 - Atherosclerotic heart disease of [place] coronary artery without angina pectoris
[2022-09-12] MEDS ORDERED: bisacodyL 10 MG SUPP PR STA (14:54)
[2022-09-12 15:08] LABS: Partial Thromboplastin Ratio 2.1
[2022-09-12] MEDS: WARFARIN SOD 7.5 MG TAB PO SCH (15:44)
[2022-09-12 15:50] LABS: Partial Thromboplastin Time 60.1 Seconds (21.0-31.0)
[2022-09-12] MEDS ORDERED: ONDANSETRON INJ 2 MG/ML 2 ML VIAL ONE (17:24)
[2022-09-12] MEDS: ONDANSETRON INJ 2 MG/ML 2 ML VIAL IV PRN (17:26)
--- NOTE | 2022-09-12 18:48 | Hospitalist Progress Note ---
Date of Service September 12, 2022 Assessment & Plan (1) Fall: Plan: Pre-admission had rapid heart beating/palpitations, which led to dizziness, lost balance, and fell to ground at his apartment at [facility]. Per 08/24 note patient was toe touch weight-bearing RLE in the setting of recent right SI joint fusion surgery will ask Dr Agarwal to clarify WB status-consult placed as patient was to have an appointment in outpatient office today anyway PT, OT alena recommending fci but patient is refusing this Patient would benefit from higher level of care at d/c - needs more assistance with meds, ambulation, etc., But he refuses (2) Seizure-like activity: Plan: With nonepileptic seizures 2nd noncompliance with Keppra and Topamax? Follows with [facility] neurology Appreciate Dr Sheikh's consult He advises to resume keppra 1000mg BID-changed today from IV to p.o. He also advises increasing topamax to 150mg BID CT head neg this admission Seizure precautions Prolactin checked - minimally elevated Topamax and Keppra levels sent-pending Dr Sheikh suggests potentially prolonged inpatient seizure monitoring at tertiary care-this is to be arranged as an outpatient Uncertain if epileptic events or non-epileptic events at this time but in the past it was suspected to be non-epileptic events (3) PAF (paroxysmal atrial fibrillation): Plan: 2 episodes of palpitations/rapid heart beating at home prior to admission. 1 episode led to dizziness and his subsequent fall. Of note - had rapid A. fib during admission in Apr 2022. Continue coumadin. Appreciate Dr Chau's consultation. STARTED amiodarone 200mg daily. Watch INR carefully due to possible potentiation of coumadin from the amiodarone. Previous echo -- June 2021 - EF>70%, mod-severe LVH Tele thus far since admission without arrhythmia. (4) Generalized weakness: Plan: Due to seizure activity, recent back surgery, deconditioning, depression, etc No evidence of any infectious process at this time PT/OT alena again recommending fci but patient is declining this at this time (5) Subtherapeutic anticoagulation: Plan: - In setting of mechanical aortic heart valve. - INR now up to 2.3-with small amount of bright red blood with straining with stool on 09/12-will now discontinue heparin drip as he will likely be therapeutic on his Coumadin by tomorrow Goal INR (2.5 to 3.5). Follow INR in the morning - Coumadin 10 mg on Mon, Wed, Sun, Sun; 7.5 mg on , Th, Sat. (6) Mechanical heart valve present: Plan: mechanical AVR cont coumadin (7) Diabetes: Plan: uncontrolled increased lantus to 20 units BID. Continue novolog coverage to 15 CF and 1:5 carb ratio Hgb A1C 7.7 on 08/24/22. (8) CAD (coronary artery disease): Plan: L main stent 2018 per records Last heart cath - [address] Vincent - L main stent patent; 20 to 30% mid LAD disease Cont asa 81mg daily Cont lipitor 40mg daily (9) Rheumatoid arthritis: Plan: On chronic Prednisone therapy 5 mg daily Increased prednisone to 20mg/day for a few days for stress dose purposes- decrease to 15 mg for tomorrow (10) Chronic kidney disease, stage 3a: Plan: GFR 45, Creatinine baseline 1.1. BMP am while here (11) Parkinsonism: Plan: Likely leading to falls. Continue home Carbidopa-Levodopa. 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 stable in room air. need to watch amiodarone use carefully in light of his pre-existing lung condition. (13) Previous back surgery: Plan: s/p open right SI joint fusion on 08/23/[address] Agarwal. Incision C/D/I; no drainage, erythema, etc Imaging w/o abnormalities at time of admission PT, OT while here need to clarify weight-bearing status Consult orthopedic spine surgery (14) Abnormal bowel movement: Plan: fluctuating BMs - goes back and forth between diarrhea & constipation at home suspect he mainly has constipation with overflow stooling/diarrhea Finally had a small bowel movement on 09/12 after starting lactulose and was given a bisacodyl UT suppository x1 Continue lactulose has tried senna, miralax, linzess, etc -- all without effect in the past Could try Amitiza but unsure if this would be covered by insurance Will start on fiber supplement And Zofran on 4 nausea as needed (15) Depression: Plan: ongoing, present for years but worsening he is on multiple 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 They will assist with getting him set up with telehealth for psychiatry Plan Disposition-continued stay in PCU, but hopeful for discharge back to independent living at the [facility] tomorrow Admission and Anticipated Discharge Date Admission Date: September 09, 2022 Subjective Patient reports constipation and some nausea. He had a little bit of bright red blood per rectum with a small bowel movement today and heparin drip was stopped. He has not had any of his seizure spells today. Reports that he felt dizzy with going to the restroom but his vital signs immediately afterwards were normal as per nursing. Telemetry with normal sinus rhythm with rates in the 60s to 80s Physical Exam Constitutional: WD/WN, vitals as above Respiratory: normal respiratory effort, lungs clear to auscultation Cardiovascular: Rate/Rhythm: regular rate and regular rhythm Heart Sounds: + click; no murmur Extremities: no edema Gastrointestinal (Abdomen): normal bowel sounds, soft, nontender, no hepatosplenomegaly Psychiatric: Orientation: alert, oriented x 3 and cooperative Affect: + anxious affect Results & Data Results & Data Vital Signs (Past 12 Hours) Vital Signs Temp Pulse Pulse Resp BP Pulse Ox O2 Del Method 09/12/22 16:00 36.8 C 89 20 132/70 98 Room Air 09/12/22 07:00 66 09/12/22 12:09 36.4 C L 80 18 101/65 99 Room Air 09/12/22 07:45 36.5 C 72 20 121/66 97 Room Air Laboratory Results CBC, PTT, INR, BMP all reviewed PG Care Time/CCT Total # of Minutes Spent Total Time Spent with Patient: Total time spent is greater than 50% in coordination of care (as documented) at patient's floor/unit and/or counseling patient: Coding Level of Care Code 66155 SUB INP/OBS CARE 2/35MIN Diagnoses Fall W19.XXXA Encounter type: initial encounter Seizure-like activity R56.9 PAF (paroxysmal atrial fibrillation) I48.0 Generalized weakness R53.1 Subtherapeutic anticoagulation Z51.81; Z79.01 Mechanical heart valve present Z95.2 Diabetes E11.42; Z79.4 Diabetes mellitus complication detail: with polyneuropathy Diabetes mellitus complication status: with neurologic complications 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 transplanted heart: [place] heart Rheumatoid arthritis M06.9 Rheumatoid arthritis location: unspecified site Rheumatoid factor presence: unspecified presence Chronic kidney disease, stage 3a N18.3 Parkinsonism G20 Interstitial lung disease J84.9 Previous back surgery Z98.890 Abnormal bowel movement R19.8 Depression F32.A (1) Fall Encounter type: initial encounter Qualified Code(s): W19.XXXA - Unspecified fall, initial encounter (7) Diabetes Diabetes mellitus complication detail: with polyneuropathy Diabetes mellitus complication status: with neurologic complications Diabetes mellitus intermediate insulin use: with intermediate use Diabetes mellitus type: type 2 Qualified Code(s): E11.42 - Type 2 diabetes mellitus with diabetic polyneuropathy; Z79.4 - termination clerk (current) use of insulin (8) CAD (coronary artery disease) Associated angina: without angina Coronary Disease-Associated Artery/Lesion type: [place] artery [place] vs. transplanted heart: [place] heart Qualified Code(s): I25.10 - Atherosclerotic heart disease of [place] coronary artery without angina pectoris (9) Rheumatoid arthritis Rheumatoid arthritis location: unspecified site Rheumatoid factor presence: unspecified presence Qualified Code(s): M06.9 - Rheumatoid arthritis, unspecified
[2022-09-12] MEDS: GABAPENTIN 300 MG CAP PO SCH (21:29)
[2022-09-12] MEDS: levETIRAcetam 500 MG TAB PO SCH (21:29)
[2022-09-12] MEDS: allopurinoL 100 MG TAB PO SCH (21:30)
[2022-09-12] MEDS: ATORVASTATIN 40 MG TAB PO SCH (21:30)
[2022-09-13 06:54] LABS: Basophils # (auto) 0.03 K/uL (0-0.2); Basophils % (auto) 0.6 %; Eosinophils # (auto) 0.08 K/uL (0-0.50); Eosinophils % (auto) 1.6 %; Hematocrit (blood only) 32.1 % (42.0-52.0); Immature Granulocytes # (auto) 0.04 K/uL (0.01-0.20); Immature Granulocytes % (auto) 0.8 %; Lymphocytes # (auto) 1.22 K/uL (1.2-3.4); Lymphocytes % (auto) 23.7 %; Mean Corpuscular Hemoglobin 27.7 pg (25.0-34.0); Mean Corpuscular Hgb Conc 31.2 g/dL (32.0-36.0); Mean Corpuscular Volume 88.9 fL (80.0-100.0); Mean Platelet Volume 10.2 fL (9.4-12.4); Monocytes # (auto) 0.33 K/uL (0.11-0.59); Monocytes % (auto) 6.4 %; Neutrophils # (auto) 3.45 K/uL (1.40-6.50); Neutrophils % (auto) 66.9 %; Platelet Count 172 K/uL (130-400); RDW Standard Deviation 48.3 fL (36.4-46.3); Red Blood Count 3.61 M/uL (4.70-6.10); White Blood Count 5.15 K/ul (4.8-10.8)
[2022-09-13 07:00] LABS: BUN Creatinine Ratio 16.7 (10-20); Calcium 9.2 mg/dl (8.6-10.3); Creatinine Clr Calc Pharmacy 53.2 ml/min; Est GFR (African American) 56.8 ml/min
[2022-09-13 07:23] LABS: INR 2.8 (0.9-1.1); Prothrombin Time 28.6 Seconds (9.0-12.0)
[2022-09-13] MEDS: CALCIUM POLYCARBOPHIL 625MG TAB PO SCH (08:37)
[2022-09-13] MEDS: CARBIDOPA/LEVODOPA 25/100MG TAB PO SCH ×3 (08:37→21:06)
[2022-09-13] MEDS: GABAPENTIN 600 MG TAB PO SCH (08:38)
[2022-09-13] MEDS: TOPIRAMATE 50 MG TAB PO SCH ×2 (08:38→21:06)
[2022-09-13] MEDS: levETIRAcetam 500 MG TAB PO SCH ×2 (08:38→21:06)
[2022-09-13] MEDS: FINASTERIDE 5 MG TAB PO SCH (08:38)
[2022-09-13] MEDS: AMIODARONE 200 MG TAB PO SCH (08:38)
[2022-09-13] MEDS: predniSONE 5 MG TAB PO SCH (08:38)
[2022-09-13] MEDS: PANTOprazole 40 MG TAB PO SCH (08:38)
[2022-09-13] MEDS: ASPIRIN 81 MG ECTAB PO SCH (08:39)
[2022-09-13] MEDS: LACTULOSE SYRUP 20 GM/30 ML UDC PO SCH ×2 (08:39→21:06)
[2022-09-13] MEDS: FLUTICASONE/VILANTEROL 100/25MCG 14 PUFFS/INHALER INH SCH (08:39)
[2022-09-13] MEDS: POLYETHYLENE (MIRALAX) 17 GM PACK PO SCH (08:40)
[2022-09-13] MEDS: UMECLIDINIUM BROMIDE 62.5MCG/BLISTER 7 PUFFS/INHALER INH SCH (08:40)
[2022-09-13] MEDS: LANTUS PER UNIT CHARGE SQ SCH ×2 (08:49→20:30)
[2022-09-13] MEDS: INSULIN ASPART PER UNIT CHARGE SC SCH ×4 (08:54→20:30)
--- NOTE | 2022-09-13 08:54 | Consultation ---
Date of Consultation September 13, 2022 Assessment & Plan (1) Sacroiliitis: Osbaldo had a fall on September 09. He underwent a right SI joint fusion by Dr. Agarwal on August 23. He is progressing appropriately postoperatively from his SI joint fusion. He is toe-touch weightbearing on his right lower extremity. Requires the assistance of a walker or a scooter at home for ambulation. May ice the incision but no heat. CT scan of the abdomen and pelvis is unremarkable for any acute changes fractures or loosening of his hardware. Orthopedically stable. We will sign off. History of Present Illness Attending Physician: Nya Sprague MD History of Present Illness Is a 77-year-old gentleman well-known to us. Dr. Agarwal performed a right SI joint fusion on August 23, 2022 on Mr. Aguilar. He states 5 days ago while at home he was in the bathroom and ambling with his walker when he had some palpitations and got lightheaded and dizzy and fell forward. He states he landed on his left side. He went to the ER and has been subsequently admitted. He has been evaluated by neurology, psychiatry and cardiology during this hospital stay. He reports he has very little pain over his incisions. No radicular complaints. Allergies Allergy/AdvReac Type Severity Reaction Status Date / Time bee venom protein (honey bee) Allergy Severe anaphylaxis Verified 09/09/22 15:26 Iodinated Contrast Media Allergy Severe Anaphylaxis Verified 09/09/22 15:26 shellfish derived Allergy Severe Anaphylaxis Verified 09/09/22 15:26 doxazosin Allergy Intermediate Rash Verified 09/09/22 15:26 tamsulosin [From Flomax] Allergy Intermediate Itching Verified 09/09/22 15:26 Tetanus Vaccines and Toxoid Allergy Unknown Unknown Verified 09/09/22 15:26 lamotrigine AdvReac Intermediate Confusion Verified 09/09/22 15:26 oxycodone [From Percocet] AdvReac Intermediate nausea/vomi Verified 09/09/22 15:26 ting propoxyphene [From Darvon] AdvReac Intermediate nausea/vomi Verified 09/09/22 15:26 ting Home Medications Medication Instructions Recorded Confirmed Type atorvastatin 40 mg tablet 40 mg PO HS 05/28/20 09/09/22 History fexofenadine 180 mg tablet 180 mg PO QAM 02/11/21 09/09/22 History (Karlee Allergy) allopurinol 100 mg tablet 100 mg PO HS 04/10/21 09/09/22 History cholecalciferol (vitamin D3) 50 4,000 unit PO HS 07/14/21 09/09/22 History mcg (2,000 unit) capsule (Vitamin D3) insulin glargine 100 unit/mL (3 15 unit subcut BID 07/26/21 09/09/22 History mL) subcutaneous pen (Lantus Solostar U-100 Insulin) acetaminophen 325 mg tablet 650 mg PO Q4H PRN pain #30 tabs 08/04/21 09/09/22 Rx aspirin 81 mg tablet,delayed 81 mg PO QAM #30 tabs 08/04/21 09/09/22 Rx release fluticasone fur. 100 mcg-umeclid 1 inh inhalation QAM #60 ea 09/06/21 09/09/22 Rx 62.5 mcg-vilant 25 mcg inhalat.powder (Trelegy Ellipta) albuterol sulfate 90 mcg/actuation 2 puff inhalation Q4H PRN 09/27/21 09/09/22 History aerosol inhaler (Ventolin HFA) Shortness Of Breath Or Wheezing polyethylene glycol 3350 17 17 g PO BID PRN Constipation 10/04/21 09/09/22 History gram/dose oral powder (Miralax) furosemide 20 mg tablet 20 mg PO QAM 11/24/21 09/09/22 History sennosides 8.6 mg tablet (Senokot) 17.2 mg PO QAM 11/24/21 09/09/22 History warfarin 5 mg tablet See Rx Instructions .Route .COMPLEX 11/24/21 09/09/22 History topiramate 100 mg tablet (Topamax) 100 mg PO BID 30 days #180 tabs 12/29/21 09/09/22 Rx insulin aspart U-100 100 unit/mL 1 sliding scale dose subcut ACHS 02/26/22 09/09/22 History (3 mL) subcutaneous pen (Novolog FlexPen U-100 Insulin aspart) diclofenac sodium 1 % topical gel 2 g topical DAILY 05/21/22 09/09/22 History (Voltaren Arthritis Pain) ferrous sulfate 325 mg (65 mg 325 mg PO QAM #30 tabs 05/26/22 09/09/22 Rx iron) tablet,delayed release sodium chloride 0.65 % nasal spray 2 spray NA QID #10 mL 05/26/22 09/09/22 Rx aerosol (Saline Mist) levetiracetam 500 mg tablet 1,000 mg PO BID #360 tabs 08/03/22 09/09/22 Rx (Keppra) cyanocobalamin (vitamin B-12) 1,000 mcg PO QAM 08/14/22 09/09/22 History 1,000 mcg tablet,extended release (Vitamin B-12 ER) gabapentin 300 mg capsule 300 - 600 mg PO BID 08/14/22 09/09/22 History magnesium 250 mg tablet 250 mg PO QAM 08/14/22 09/09/22 History pantoprazole 20 mg tablet,delayed 20 mg PO QAM 08/14/22 09/09/22 History release (Protonix) potassium chloride 20 mEq 20 meq PO HS 08/14/22 09/09/22 History tablet,extended release prednisone 5 mg tablet 5 mg PO QAM 08/14/22 09/09/22 History carbidopa 25 mg-levodopa 100 mg 1 tab PO TID 08/23/22 09/09/22 History tablet (Sinemet) finasteride 5 mg tablet (Proscar) 5 mg PO QAM 08/23/22 09/09/22 History ondansetron 4 mg disintegrating 4 mg PO Q6H PRN nausea and 08/24/22 09/09/22 Rx tablet vomiting #30 tabs oxycodone 5 mg tablet 5 mg PO DAILY PRN pain #20 tabs 08/24/22 09/09/22 Rx tramadol 50 mg tablet 50 mg PO Q6H PRN pain, moderate 08/24/22 09/09/22 Rx #30 tabs Patient History Medical History Anemia history of blood transfusion, 2020 Anxiety Aortic ectasia, thoracic Aspiration pneumonia hx of--per pt was due to pain medications Asthma inhaler daily and prn CAD (coronary artery disease) follows with Dr. Chau Chronic dyspnea Chronic kidney disease, stage 3a Chronic pulmonary aspiration Chronic respiratory failure with hypoxia Chronic use of steroids Constipated Current use of skilled nursing anticoagulation warfarin daily Depression Diabetes IDDM Diabetic peripheral neuropathy Dysphagia Edema Generalized weakness Gout Hearing deficit Heart failure > 70% History of seizures last 2019--on Keppra/Topiramate--follows with Dr. 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 mild R sided wkness. attending outpatient physical therapy w/ good improvement in strength (5+/5 strength of all 4 extremities as of 05/28/20) Supratherapeutic INR Thoracic ascending aortic aneurysm s/p repair TIA (transient ischemic attack) 2019--no deficits--follows with Dr. Sheikh Surgical History H/O hernia repair History of aortic valve replacement 2003 @ [facility] in [place], [place] History of appendectomy History of bilateral cataract extraction History of cardiac cath x3--2017 @ [facility] with 1 stent placed/2019 @ [facility]/last 04/2021 @ [facility] History of cholecystectomy History of colonoscopy History of esophagogastroduodenoscopy (EGD) History of fusion of cervical spine normal ROM History of gastric bypass 2007--lap band History of heart artery stent x1--2017 @ [facility] History of lumbar spinal fusion History of lung biopsy 2019 History of partial nephrectomy 1986 on right kidney History of prostate biopsy malignant History of tonsillectomy History of tooth extraction all upper teeth removed Family History Mother , age 87 of pulmonary issues Rheumatoid arthritis Father , in his mid 80s of a stroke Stroke Other Coronary heart disease No family history of adverse response to anesthesia Social History Smoking Status: Never smoker Second Hand Exposure: No; Do You Dip or Chew Tobacco: No; Hx Alcohol Use: No Hx Substance Use: No Preferred Language: Cambodian Communication Ability: Effective Hearing Ability: Hard of Hearing Oracle Manager Required: No Beliefs That Will Affect Care: None marital status: / Current Living Situation: Alone Current Living Situation Comment: lives at the [facility] current occupational status: retired 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 No ecchymosis. Modest edema. No erythema, purulence or drainage Results & Data Vital Signs (Past 12 Hours) Vital Signs Temp Pulse Resp BP BP Pulse Ox O2 Del Method 09/13/22 07:18 36.4 C L 63 18 101/57 L 98 Room Air 09/13/22 03:51 36.6 C 61 16 104/56 L 95 Room Air 09/12/22 23:51 36.5 C 84 16 107/63 95 Room Air Diagnostic Findings [place], [place] [phone] CT Scan Report Patient:OSBALDO AGUILAR Admit Date:09/09/22 MR#:[id number] Address1:[address] [place] [address] Acct ID:[id number] Address2: Date:1945 [facility] Zip:[place] [address] Age:77 Location:ED Sex:M Room/Bed: Att Phy: Diagnosis:FALL/HEAD INJURY Brunilda Phy:Josemanuel Melo MD Service Date:09/09/22 [facility] Phy: Interpreting Phy:Russell Sifuentes MDAit Phy: Ordering Phy:Deven Davis M.D. cc: ~ CT abd pelvis wo con CLINICAL HISTORY: Trauma, fall TECHNIQUE: Helical axial images of the abdomen and pelvis were obtained. Automated dose lowering techniques and/or adjustment according to patient size were utilized for this exam. This exam was performed without intravenous contrast. COMPARISON: Comparison is made to CT abdomen pelvis 05/21/2022 FINDINGS: Lower chest: For findings above the diaphragm, please see CT chest performed s byron day. Liver: Unremarkable. No focal lesions are seen. Gallbladder and biliary tree: Patient is status post cholecystectomy. No intra- or extrahepatic biliary ductal dilation. Pancreas: Fatty replacement of the pancreas is seen. Spleen: Unremarkable. Adrenals: Unremarkable. Kidneys and ureters: Perinephric stranding is noted bilaterally. Bladder: Unremarkable. Reproductive organs: Prostatic calcifications are seen which may represent prior hemorrhage or granulomatous disease. Bowel: Diverticulosis is seen without evidence of diverticulitis. A lap band is noted in the gastroesophageal junction with a small hiatal hernia. Lymph nodes Retroperitoneal: Unremarkable. Pelvic: Unremarkable. Mesenteric: Unremarkable. Peritoneum: Normal. Vessels: Atherosclerotic calcifications are seen. Abdominal wall: Unremarkable. Bones: Degenerative changes are seen in the spine. Posterior fixation hardware spans L3-S1. IMPRESSION: No acute abnormalities and in particular no evidence of acute fracture. Additional findings as above. ACT 112: Negative or not required by law. Electronically signed by: Russell Sifuentes M.D. 09/09/2022 1:54 PM Dictated:09/09/22 1345 Transcribed: 09/09/22 1345
[2022-09-13] MEDS: ONDANSETRON INJ 2 MG/ML 2 ML VIAL IV PRN (11:38)
--- NOTE | 2022-09-13 16:06 | Hospitalist Progress Note ---
Date of Service September 13, 2022 Assessment & Plan (1) Fall: Plan: Pre-admission had rapid heart beating/palpitations, which led to dizziness, lost balance, and fell to ground at his apartment at [facility]. Per 08/24 note patient was toe touch weight-bearing RLE in the setting of recent right SI joint fusion surgery appreciate Ortho SPine consult-no evidence of issues since fall with surgical site, continue TTWB PT, OT evals recommending long term but patient is refusing this Patient would benefit from higher level of care at d/c - needs more assistance with meds, ambulation, etc., But he refuses (2) Seizure-like activity: Plan: With nonepileptic seizures 2nd noncompliance with Keppra and Topamax? Follows with [facility] neurology Appreciate Dr Sheikh's consult He advises to resume keppra 1000mg BID He also advises increasing topamax to 150mg BID CT head neg this admission Seizure precautions Prolactin checked - minimally elevated Topamax and Keppra levels sent-pending Dr Sheikh suggests potentially prolonged inpatient seizure [facility]-this is to be arranged as an outpatient Uncertain if epileptic events or non-epileptic events at this time but in the past it was suspected to be non-epileptic events (3) PAF (paroxysmal atrial fibrillation): Plan: 2 episodes of palpitations/rapid heart beating at home prior to admission. 1 episode led to dizziness and his subsequent fall. Possible Afib but no documentation of rhtyhm Of note - had rapid A. fib during admission in Apr 2022. Continue coumadin. Appreciate Dr Chau's consultation. STARTED amiodarone 200mg daily, but now pt wants to stop this for fear of adverse side effects and also thinks it's causing him nausea Previous echo -- June 2021 - EF>70%, mod-severe LVH Tele thus far since admission without arrhythmia. (4) Generalized weakness: Plan: Due to seizure activity, recent back surgery, deconditioning, depression, etc No evidence of any infectious process at this time PT/OT evals again recommending long term but patient is declining this at this time (5) Subtherapeutic anticoagulation: Plan: - In setting of mechanical aortic heart valve. now resolved, INR at goal was on bridging heparin gtt - Coumadin 10 mg on Sun, Wed, Sun, Sun; 7.5 mg on Tu, Th, Sat. (6) Mechanical heart valve present: Plan: mechanical AVR cont coumadin (7) Diabetes: Plan: uncontrolled continue lantus to 20 units BID. Continue novolog coverage to 15 CF and 1:5 carb ratio Hgb A1C 7.7 on 08/24/22. 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 Continue home Carbidopa-Levodopa. 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 stable in room air. (13) Previous back surgery: Plan: s/p open right SI joint fusion on 08/23/[address] Agarwal. Incision C/D/I; no drainage, erythema, etc Imaging w/o abnormalities at time of admission PT, OT while here Consult orthopedic spine surgery appreciated-continue TTWB (14) Abnormal bowel movement: Plan: fluctuating BMs - goes back and forth between diarrhea & constipation at home suspect he mainly has constipation with overflow stooling/diarrhea Finally had a small bowel movement on 09/12 after starting lactulose and was given a bisacodyl NE suppository x1 Had another BM night of 09/12 but still feels backed up Continue lactulose and increase to bid give another bisacodyl NE x 1 now has tried senna, miralax, linzess, etc -- all without effect in the past Could try Amitiza but unsure if this would be covered by insurance started on fiber supplement continue Zofran prn nausea (15) Depression: Plan: ongoing, present for years but worsening 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 They will assist with getting him set up with telehealth for psy chiatry Plan Disposition-continued stay in PCU, but hopeful for discharge back to independent living at the [facility] tomorrow Admission and Anticipated Discharge Date Admission Date: September 09, 2022 Subjective Still feeling nauseated, thinks it's from the constipation and the amiodarone. Is concerned about the side effects of amiodarone and wants to stop it. Tele with NSR, normal rates. Also is concerned about testing positive for MRSA on his nasal swab last admission. Physical Exam Constitutional: WD/WN, vitals as above Respiratory: normal respiratory effort, lungs clear to auscultation Cardiovascular: Rate/Rhythm: regular rate and regular rhythm Heart Sounds: + click; no murmur Extremities: no edema Gastrointestinal (Abdomen): normal bowel sounds, soft, nontender, no hepatosplenomegaly Psychiatric: Orientation: alert, oriented x 3 and cooperative Affect: + anxious affect Results & Data Results & Data Vital Signs (Past 12 Hours) Vital Signs Temp Pulse Pulse Resp BP Pulse Ox O2 Del Method 09/13/22 15:40 36.7 C 59 L 18 118/70 100 Room Air 09/13/22 15:35 59 L 09/13/22 11:21 36.6 C 63 19 107/51 L 92 Room Air 09/13/22 08:00 104 H 09/13/22 07:18 36.4 C L 63 18 101/57 L 98 Room Air Laboratory Results CBC, INR, BMP reviewed PG Care Time/CCT Total # of Minutes Spent Total Time Spent with Patient: Total time spent is greater than 50% in coordination of care (as documented) at patient's floor/unit and/or counseling patient: Coding Level of Care Code 40262 SUB INP/OBS CARE 2/35MIN Diagnoses Fall W19.XXXA Encounter type: initial encounter Seizure-like activity R56.9 PAF (paroxysmal atrial fibrillation) I48.0 Generalized weakness R53.1 Subtherapeutic anticoagulation Z51.81; Z79.01 Mechanical heart valve present Z95.2 Diabetes E11.42; Z79.4 Diabetes mellitus type: type 2 Diabetes mellitus roasterman insulin use: with longterm use Diabetes mellitus complication status: with neurologic complications Diabetes mellitus complication detail: with polyneuropathy CAD (coronary artery disease) I25.10 Coronary Disease-Associated Artery/Lesion type: [place] artery [place] vs. transplanted heart: [place] heart Associated angina: without angina Rheumatoid arthritis M06.9 Rheumatoid arthritis location: unspecified site Rheumatoid factor presence: unspecified presence Chronic kidney disease, stage 3a N18.3 Parkinsonism G20 Interstitial lung disease J84.9 Previous back surgery Z98.890 Abnormal bowel movement R19.8 Depression F32.A (1) Fall Encounter type: initial encounter Qualified Code(s): W19.XXXA - Unspecified fall, initial encounter (7) Diabetes Diabetes mellitus type: type 2 Diabetes mellitus longterm insulin use: with longterm use Diabetes mellitus complication status: with neurologic complications Diabetes mellitus complication detail: with polyneuropathy Qualified Code(s): E11.42 - Type 2 diabetes mellitus with diabetic polyneuropathy; Z79.4 - terminologist (current) use of insulin (8) CAD (coronary artery disease) Coronary Disease-Associated Artery/Lesion type: [place] artery [place] vs. transplanted heart: [place] heart Associated angina: without angina Qualified Code(s): I25.10 - Atherosclerotic heart disease of [place] coronary artery without angina pectoris (9) Rheumatoid arthritis Rheumatoid arthritis location: unspecified site Rheumatoid factor presence: unspecified presence Qualified Code(s): M06.9 - Rheumatoid arthritis, unspecified
[2022-09-13] MEDS ORDERED: bisacodyL 10 MG SUPP PR STA (16:08)
[2022-09-13] MEDS: MUPIROCIN 2% OINT 22 GM TUBE INTNAS SCH (17:00)
[2022-09-13] MEDS: WARFARIN SOD 10 MG TAB PO SCH (17:01)
[2022-09-13] MEDS: allopurinoL 100 MG TAB PO SCH (21:05)
[2022-09-13] MEDS: GABAPENTIN 300 MG CAP PO SCH (21:06)
[2022-09-13] MEDS: ATORVASTATIN 40 MG TAB PO SCH (21:06)
[2022-09-14 08:17] LABS: BUN Creatinine Ratio 17.1 (10-20); Calcium 9.3 mg/dl (8.6-10.3); Creatinine Clr Calc Pharmacy 50.1 ml/min; Est GFR (Non-African American) 45.7 ml/min; Magnesium 1.9 mg/dl (1.7-2.4); Potassium 3.8 mmol/L (3.5-5.1)
[2022-09-14 08:33] LABS: Prothrombin Time 30.2 Seconds (9.0-12.0)
[2022-09-14] MEDS: TOPIRAMATE 50 MG TAB PO SCH (09:24)
[2022-09-14] MEDS: levETIRAcetam 500 MG TAB PO SCH (09:24)
[2022-09-14] MEDS: ASPIRIN 81 MG ECTAB PO SCH (09:25)
[2022-09-14] MEDS: PANTOprazole 40 MG TAB PO SCH (09:25)
[2022-09-14] MEDS: FINASTERIDE 5 MG TAB PO SCH (09:25)
[2022-09-14] MEDS: predniSONE 5 MG TAB PO SCH (09:25)
[2022-09-14] MEDS: GABAPENTIN 600 MG TAB PO SCH (09:25)
[2022-09-14] MEDS: CARBIDOPA/LEVODOPA 25/100MG TAB PO SCH ×2 (09:25→13:17)
[2022-09-14] MEDS: POLYETHYLENE (MIRALAX) 17 GM PACK PO SCH (09:26)
[2022-09-14] MEDS: UMECLIDINIUM BROMIDE 62.5MCG/BLISTER 7 PUFFS/INHALER INH SCH (09:26)
[2022-09-14] MEDS: CALCIUM POLYCARBOPHIL 625MG TAB PO SCH (09:26)
[2022-09-14] MEDS: MUPIROCIN 2% OINT 22 GM TUBE INTNAS SCH (09:27)
[2022-09-14] MEDS: FLUTICASONE/VILANTEROL 100/25MCG 14 PUFFS/INHALER INH SCH (09:28)
[2022-09-14] MEDS: LACTULOSE SYRUP 20 GM/30 ML UDC PO SCH (09:28)
[2022-09-14] MEDS: INSULIN ASPART PER UNIT CHARGE SC SCH ×2 (09:37→13:21)
[2022-09-14] MEDS: LANTUS PER UNIT CHARGE SQ SCH (09:37)
[2022-09-14] MEDS ORDERED: LACTULOSE SYRUP 20 GM/30 ML UDC PO ONE (13:53)
--- NOTE | 2022-09-14 14:12 | Discharge Summary ---
Discharge Summary Date of Service September 14, 2022 Notes For Next Care Provider Medication Changes From Visit Increased Topamax to 150mg po bid Added on lactulose 20 gram po bid and Fibercon 625mg po daily Admission HPI Per Admitting Provider Mr. 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 The patient is status post open right SI joint fusion on 08/23/22, completed by Dr. Agarwal; he has been working with PT at the [facility], where he resides, and is using a rolling walker at all times. He was returning from the restroom this morning, developed palpitations c/w a self reported arrhythmia leading to a fall. He did strike the left side of his head during fall. He was not found by the staff at the [facility] for a few hours. The patient unfortunately missed taking his morning medications, including Keppra and Topamax for history of seizures. He was reported to have a 1-2 minute seizure upon EMS arrival. Upon presentation to the ER, he has had multiple episodes of seizure like activity; he required Keppra 1,000 mg x 2 doses along with Ativan 1.5 mg. CBC with chronic normocytic anemia; lactate level was 2.[address] brain was negative for acute hemorrhage. CT chest with degenerative changes and small pulmonary nodules; CT AP was negative for acute abnormalities. CT C- spine was negative. He has a subtherapeutic INR at 1.3, in setting of prosthetic aortic valve. He reports recent increase in INR levels, leading to dose reducing Coumadin. Management of coumadin is typically completed by PCP Dr. Melo. Principal Dx & Hospital Course #1 = Principal Diagnosis (1) Fall: Pre-admission had rapid heart beating/palpitations, which led to dizziness, lost balance, and fell to ground at his apartment at [facility]. Per 08/24 note patient was toe touch weight-bearing RLE in the setting of recent right SI joint fusion surgery appreciate Ortho SPine consult-no evidence of issues since fall with surgical site, continue TTWB PT, OT evals recommending half-way but patient is refusing this Patient would benefit from higher level of care at d/c - needs more assistance with meds, ambulation, etc., But he refuses (2) Seizure-like activity: With nonepileptic seizures 2nd noncompliance with Keppra and Topamax? Follows with [facility] neurology Appreciate Dr Sheikh's consult He advises to resume keppra 1000mg BID He also advises increasing topamax to 150mg BID CT head neg this admission Seizure precautions Prolactin checked - minimally elevated Topamax and Keppra levels sent-pending Dr Sheikh suggests potentially prolonged inpatient seizure monitoring at tertiary care-this is to be arranged as an outpatient Uncertain if epileptic events or non-epileptic events at this time but in the past it was suspected to be non-epileptic events (3) PAF (paroxysmal atrial fibrillation): 2 episodes of palpitations/rapid heart beating at home prior to admission. 1 episode led to dizziness and his subsequent fall. Possible Afib but no documentation of rhtyhm Of note - had rapid A. fib during admission in Apr 2022. Continue coumadin. Appreciate Dr Chau's consultation. STARTED amiodarone 200mg daily, but now pt wants to stop this for fear of adverse side effects and also thinks it's causing him nausea Previous echo -- June 2021 - EF>70%, mod-severe LVH Tele thus far since admission without arrhythmia. (4) Generalized weakness: Due to seizure activity, recent back surgery, deconditioning, depression, etc No evidence of any infectious process at this time PT/OT evals again recommending half-way but patient is declining this at this time (5) Subtherapeutic anticoagulation: - In setting of mechanical aortic heart valve. now resolved, INR at goal --> pt says his goal is 2.0-3.0 but Cardiology says it should be 2.5-3.5--> defer to PCP who manages his INR was on bridging heparin gtt - Coumadin 10 mg on Mon, Wed, Sun, Sun; 7.5 mg on , , Sat. (6) Mechanical heart valve present: mechanical AVR cont coumadin (7) Diabetes: continue basal and bolus insulin Hgb A1C 7.7 on 08/24/22. (8) CAD (coronary artery disease): L main stent 2018 per records Last heart cath - [address] Vincent - L main stent patent; 20 to 30% mid LAD disease Cont asa 81mg daily Cont lipitor 40mg daily (9) Rheumatoid arthritis: On chronic Prednisone therapy 5 mg daily Increased prednisone to 20mg/day for a few days for stress dose purposes- decrease to 5 mg for tomorrow (10) Chronic kidney disease, stage 3a: GFR 45, Creatinine baseline 1.1. 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 Continue home Carbidopa-Levodopa. (12) Interstitial lung disease: 2nd to rheumatic disease ? stable in room air. (13) Previous back surgery: s/p open right SI joint fusion on 08/23/[address] Agarwal. Incision C/D/I; no drainage, erythema, etc Imaging w/o abnormalities at time of admission PT, OT while here Consult orthopedic spine surgery appreciated-continue TTWB f/u in 3 weeks as outpt (14) Abnormal bowel movement: fluctuating BMs - goes back and forth between diarrhea & constipation at home suspect he mainly has constipation with overflow stooling/diarrhea Finally had a small bowel movement on 09/12 after starting lactulose and was given a bisacodyl [place] suppository x1 Had another BM night of 09/12 but still feels backed up Continue lactulose and increase to bid gave another bisacodyl [place] x 1 has tried senna, miralax, linzess, etc -- all without effect in the past Could try Amitiza but unsure if this would be covered by insurance started on fiber supplement continue Zofran prn nausea (15) Depression: ongoing, present for years but worsening 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 They will assist with getting him set up with telehealth for psychiatry Plan Disposition-dc back to independent living at the [facility] today despite recommendation for SNF which he declines Discharge Exam Constitutional WD/WN, vitals as above Respiratory normal respiratory effort, lungs clear to auscultation Cardiovascular Rate/Rhythm: regular rate and regular rhythm Heart Sounds: + click; no murmur Extremities: no edema Gastrointestinal (Abdomen) normal bowel sounds, soft, nontender, no hepatosplenomegaly Psychiatric Orientation: alert, oriented x 3 and cooperative Affect: + anxious affect Updated Medication List Medication Instructions Recorded Confirmed Type atorvastatin 40 mg tablet 40 mg PO HS 05/28/20 09/09/22 History fexofenadine 180 mg tablet 180 mg PO QAM 02/11/21 09/09/22 History (Karlee Allergy) allopurinol 100 mg tablet 100 mg PO HS 04/10/21 09/09/22 History cholecalciferol (vitamin D3) 50 4,000 unit PO HS 07/14/21 09/09/22 History mcg (2,000 unit) capsule (Vitamin D3) insulin glargine 100 unit/mL (3 15 unit subcut BID 07/26/21 09/09/22 History mL) subcutaneous pen (Lantus Solostar U-100 Insulin) acetaminophen 325 mg tablet 650 mg PO Q4H PRN pain #30 tabs 08/04/21 09/09/22 Rx aspirin 81 mg tablet,delayed 81 mg PO QAM #30 tabs 08/04/21 09/09/22 Rx release fluticasone fur. 100 mcg-umeclid 1 inh inhalation QAM #60 ea 09/06/21 09/09/22 Rx 62.5 mcg-vilant 25 mcg inhalat.powder (Trelegy Ellipta) albuterol sulfate 90 mcg/actuation 2 puff inhalation Q4H PRN 09/27/21 09/09/22 History aerosol inhaler (Ventolin HFA) Shortness Of Breath Or Wheezing polyethylene glycol 3350 17 17 g PO BID PRN Constipation 10/04/21 09/09/22 H istory gram/dose oral powder (Miralax) furosemide 20 mg tablet 20 mg PO QAM 11/24/21 09/09/22 History sennosides 8.6 mg tablet (Senokot) 17.2 mg PO QAM 11/24/21 09/09/22 History warfarin 5 mg tablet See Rx Instructions .Route .COMPLEX 11/24/21 09/09/22 History insulin aspart U-100 100 unit/mL 1 sliding scale dose subcut ACHS 02/26/22 09/09/22 History (3 mL) subcutaneous pen (Novolog FlexPen U-100 Insulin aspart) diclofenac sodium 1 % topical gel 2 g topical DAILY 05/21/22 09/09/22 History (Voltaren Arthritis Pain) ferrous sulfate 325 mg (65 mg 325 mg PO QAM #30 tabs 05/26/22 09/09/22 Rx iron) tablet,delayed release sodium chloride 0.65 % nasal spray 2 spray NA QID #10 mL 05/26/22 09/09/22 Rx aerosol (Saline Mist) levetiracetam 500 mg tablet 1,000 mg PO BID #360 tabs 08/03/22 09/09/22 Rx (Keppra) cyanocobalamin (vitamin B-12) 1,000 mcg PO QAM 08/14/22 09/09/22 History 1,000 mcg tablet,extended release (Vitamin B-12 ER) gabapentin 300 mg capsule 300 - 600 mg PO BID 08/14/22 09/09/22 History magnesium 250 mg tablet 250 mg PO QAM 08/14/22 09/09/22 History pantoprazole 20 mg tablet,delayed 20 mg PO QAM 08/14/22 09/09/22 History release (Protonix) potassium chloride 20 mEq 20 meq PO HS 08/14/22 09/09/22 History tablet,extended release prednisone 5 mg tablet 5 mg PO QAM 08/14/22 09/09/22 History carbidopa 25 mg-levodopa 100 mg 1 tab PO TID 08/23/22 09/09/22 History tablet (Sinemet) finasteride 5 mg tablet (Proscar) 5 mg PO QAM 08/23/22 09/09/22 History ondansetron 4 mg disintegrating 4 mg PO Q6H PRN nausea and 08/24/22 09/09/22 Rx tablet vomiting #30 tabs oxycodone 5 mg tablet 5 mg PO DAILY PRN pain #20 tabs 08/24/22 09/09/22 Rx tramadol 50 mg tablet 50 mg PO Q6H PRN pain, moderate 08/24/22 09/09/22 Rx #30 tabs calcium polycarbophil 625 mg 625 mg PO QAM #30 tabs 09/14/22 Rx tablet (Fiber (calcium polycarbophil)) lactulose 20 gram/30 mL oral 20 g (30 mL) PO BID 30 days #1,800 09/14/22 Rx solution mL mupirocin 2 % topical ointment 1 applic mucosal atomization BID 9 09/14/22 Rx days #15 grams topiramate 100 mg tablet 150 mg PO BID 30 days #90 tabs 09/14/22 Rx Hospital Stay Data Consultations 09/09/22 17:00 Consult Neurology Routine 09/10/22 19:30 Consult Cardiology Routine 09/11/22 15:36 Consult Psychiatry Routine 09/12/22 18:38 Consult Orthopedic Surgery Routine Diagnostic Imagining Performed 09/09/22 12:23 CT abd pelvis wo con Stat CT cervical spine wo con Stat CT chest diagnostic wo con Stat CT head/brain wo con Stat Pending Results Patient Have Any Pending Studies at Discharge: No Discharge Instructions Given to Patient (Per Discharging Provider) You were admitted after having a fall with heart palpitations. You then had 2 seizure episodes after that. You were increased on your Topamax to 150mg twice a day (from 100mg twice a day) by the Neurologist and it is recommended that you follow up with the Neurologist after discharge. They may make arrangements to have you seen by a Neurologist at a larger hospital center where 24 hour video EEG monitoring can be performed. You were started on lactulose and fiber pills for your constipation. Initially the Front Office Agent placed you on amiodarone to prevent palpitations but this made you nauseated and was stopped. You had no heart arrhythmias while you were here. Total Time Total Time Spent Total Time Spent (In Minutes): 35 min Coding Level of Care Code 42499 INP/OBS DISCH >30 MIN Diagnoses Fall W19.XXXA Encounter type: initial encounter Seizure-like activity R56.9 PAF (paroxysmal atrial fibrillation) I48.0 Generalized weakness R53.1 Subtherapeutic anticoagulation Z51.81; Z79.01 Mechanical heart valve present Z95.2 Diabetes E11.42; Z79.4 Diabetes mellitus type: type 2 Diabetes mellitus custodial insulin use: with custodial use Diabetes mellitus complication status: with neurologic complications Diabetes mellitus complication detail: with polyneuropathy CAD (coronary artery disease) I25.10 Coronary Disease-Associated Artery/Lesion type: [place] artery [place] vs. transplanted heart: [place] heart Associated angina: without angina Rheumatoid arthritis M06.9 Rheumatoid arthritis location: unspecified site Rheumatoid factor presence: unspecified presence Chronic kidney disease, stage 3a N18.3 Parkinsonism G20 Interstitial lung disease J84.9 Previous back surgery Z98.890 Abnormal bowel movement R19.8 Depression F32.A
[2022-09-14] MEDS: WARFARIN SOD 7.5 MG TAB PO SCH (14:36)
[2022-09-14 19:42] LABS: Levetiracetam Keppra 46.9 mcg/mL (6.0-46.0); Topiramate 12.7 mcg/mL (see note)
== END 2022-09-14 16:01 | disposition home or self-care (01) | DRG 101 ==
LOC: ED 12:09 → 4W 15:08 → SUATTDRO 15:08 → 4W 16:08

== ENCOUNTER 2022-10-08 16:52 | Observation (INO) ==
[2022-10-08] MEDS ORDERED: SODIUM CHLORIDE 0.9% 1000ML 500 ML IV ONE (17:33)
[2022-10-08] MEDS ORDERED: levETIRAcetam 500 MG in 0.9 % SODIUM CHLORIDE 100 ML IV STA (17:33)
[2022-10-08] MEDS ORDERED: LORazepam 2 MG/1 ML VIAL IV STA (17:33)
[2022-10-08] MEDS: LORazepam 2 MG/1 ML VIAL ONE ×2 (17:33→18:19)
--- NOTE | 2022-10-08 17:41 | Emergency Department Note ---
Impression & Plan Weakness, Anemia, Acute GI bleeding, Coagulopathy ED Provider Note NAME: OSBALDO AGUILAR AGE: 77 SEX: M : 1945 ARRIVES VIA: Ambulance INFORMANT: [Patient][nursing, ems] ED PROVIDER(S): [Tan Lowe MD] CHIEF COMPLAINT: Weakness HISTORY OF PRESENT ILLNESS: The patient is a 77-year-old male with a history of mechanical heart valve as well as seizure. He takes warfarin daily. He was sent to our ED today for increasing weakness and tiredness. He may have had a seizure earlier today. He is on antibiotics for a left hand cellulitis. Upon my arrival in the room, the patient had some extremity shaking. He was breathing easily. He had a strong carotid pulse. There was concern for seizure by the nursing staff. During this event which lasted about a minute, the patient did not seem in distress. At times, he seemed to respond to my voice and sternal rub. When the shaking stopped, there was no postictal phase noted. The patient currently can not give me much of a history. He is not responding to questions although, was seen pulling his covers up over his shoulders. As per nursing staff, he complained of being tired when first brought in by EMS. Given the circumstances, no further history obtainable. PMHx/PSHx: See Below SOCIAL HISTORY: See Below. PHYSICAL EXAM: GENERAL: Patient is in no acute distress. HEENT: No acute trauma, normocephalic atraumatic, mucous membranes moist, no nasal congestion. NECK: No stridor, no adenopathy, no meningismus, trachea is midline. LUNGS: Clear to auscultation bilaterally, no wheeze, no rhonchi, breath sounds equal. HEART: Regular rhythm, subtle systolic murmur, a metallic click is heard. Regular rate ABDOMEN: Soft, nontender, bowel sounds positive, no peritonitis. EXTREMITIES: No cyanosis, moderate bilateral pedal edema, full range of motion of all the joints without pain or difficulty. The patient does have a brace on his left wrist. There is a bandage under the brace. There is a skin tear present when the bandage is removed, no significant surrounding erythema, no discharge. NEUROLOGIC: Seen moving all extremities. Currently not answering questions. SKIN: No rash, no jaundice, no diaphoresis. Rectal: Dark, maroon heme positive stool. DIFFERENTIAL DIAGNOSIS: Seizure, bacteremia or sepsis, UTI, intracranial bleeding, electrolyte imbalance, dehydration, WI, GI bleeding, among others. EMERGENCY DEPARTMENT COURSE/PROCEDURES: Prior/Outside records reviewed: EMS notes. ECG per my interpretation: Indication was weakness and possible seizure. The ECG shows a normal sinus rhythm with a rate of 65. There is some poor R wave progression. There is no ST elevation, no PVCs. The QTc is 457. Continuous Cardiac Monitoring per my interpretation: An order was placed for continuous cardiac monitoring. The monitor shows a rate of 82 with normal sinus rhythm. Critical Care Note: I have personally spent 43 minutes of critical care time in the direct management of this patient. This includes bedside care, interpretation of diagnostic studies, and testing, discussion with consultants, patient, and family members, and other required patient management activities. This 43 minutes is in excess of all separately billable procedures. MEDICAL DECISION MAKING: There is no leukocytosis. The patient is anemic. He has a history of anemia but his value today is lower than baseline. A rectal exam was performed and the stool was dark maroon in color and heme positive. There is a normal platelet count. INR was high at 4, he is on Coumadin. Cre atinine is high at 1.4, he has a history of renal insufficiency. No electrolyte abnormality in need of emergent correction. Lactic acid level was not elevated making sepsis less likely. No concerning liver enzyme elevation. The patient appeared to be in a euthyroid state. Prolactin level was not elevated making seizure activity less likely. ECG showed a normal sinus rhythm, no ischemia. Cardiac enzyme testing x1 is not consistent with acute cardiac injury. Urinalysis does not show infection. COVID test returned negative. Chest film shows cardiomegaly per my review, no pneumonia or CHF. Brain CT shows no acute bleed or mass effect. The patient did have some shaking episodes here however, I am not convinced it was true seizure activity. He was able to interact at times during the episodes and, there was no postictal phase. The patient received a dose of IV Ativan for this activity. He also received a 500 mg dose of IV Keppra. These meds were given as he has a history of a seizure disorder although again, I am not convinced the activity today was true seizure activity. The patient did receive IV saline for hydration. A type and screen was ordered. Given the GI bleeding, given the anemia, given his weakness, given his coagulopathy, I do think he requires a hospital stay. His INR cannot be completely corrected as he does have a mechanical valve. I spoke with the patient and case management, the on-call hospitalist was consulted. I did not order any blood for transfusion while here in the ED as his hemoglobin was above 8. DISPOSITION: Patient's presentation and findings warrant a hospital stay. Past Med/Surg History Medical History Anemia history of blood transfusion, 2020 Anxiety Aortic ectasia, thoracic Aspiration pneumonia hx of--per pt was due to pain medications Asthma inhaler daily and prn CAD (coronary artery disease) follows with Dr. Chau Chronic dyspnea Chronic kidney disease, stage 3a Chronic pulmonary aspiration Chronic respiratory failure with hypoxia Chronic use of steroids Constipated Current use of group home anticoagulation warfarin daily Depression Diabetes IDDM Diabetic peripheral neuropathy Dysphagia Edema Generalized weakness Gout Hearing deficit Heart failure > 70% History of seizures last 2019--on Keppra/Topiramate--follows with Dr. Sheikh HLD (hyperlipidemia) Hypokalemia Idiopathic polyneuropathy Interstitial lung disease due to connective tissue disease inhaler daily and prn and uses 2L N/C at hs Migraine Neck pain Neurogenic claudication due to lumbar spinal stenosis On home oxygen therapy 2L at hs Pancytopenia Parkinsonism per pt has a difficulty swallowing, states certain foods can be difficult to eat Pneumonia hx of, per pt last admission @ [facility] was 05/2022 Polymyositis Prostate cancer radiation Rheumatoid arthritis Shortness of breath per pt on with exertion Somatic dysfunction of cervical region Stroke-like symptom 12/2019, w/ blurry vision and dysarthria. mild R sided wkness. attending outpatient physical therapy w/ good improvement in strength (5+/5 strength of all 4 extremities as of 05/28/20) Supratherapeutic INR Thoracic ascending aortic aneurysm s/p repair TIA (transient ischemic attack) 2019--no deficits--follows with Dr. Sheikh Surgical History H/O hernia repair History of aortic valve replacement 2003 @ [facility] in [place], [place] History of appendectomy History of bilateral cataract extraction History of cardiac cath x3--2018 @ [facility] with 1 stent placed/2019 @ [facility]/last 04/2021 @ [facility] History of cholecystectomy History of colonoscopy History of esophagogastroduodenoscopy (EGD) History of fusion of cervical spine normal ROM History of gastric bypass 2008--lap band History of heart artery stent x1--2018 @ [facility] History of lumbar spinal fusion History of lung biopsy 2019 History of partial nephrectomy 1986 on right kidney History of prostate biopsy malignant History of tonsillectomy History of tooth extraction all upper teeth removed Family History Mother , age 87 of pulmonary issues Rheumatoid arthritis Father , in his mid 80s of a stroke Stroke Other Coronary heart disease No family history of adverse response to anesthesia Social History Smoking Status: Never smoker Second Hand Exposure: No; Do You Dip or Chew Tobacco: No; Hx Alcohol Use: No Hx Substance Use: No Preferred Language: Citizen Of [place] Communication Ability: Effective Hearing Ability: Hard of Hearing Medical Insurance Claims Processor Required: No Beliefs That Will Affect Care: None marital status: / Current Living Situation: Alone Current Living Situation Comment: lives at the [facility] current occupational status: retired 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 How many Children do You have: 2 How many Children do You have Comment: son Feels Safe at Home: Yes Assistive Devices: Scooter/Electric Scooter, Walker and Other Allergies Allergies Allergy/AdvReac Type Severity Reaction Status Date / Time bee venom protein (honey bee) Allergy Severe anaphylaxis Verified 10/08/22 17:58 Iodinated Contrast Media Allergy Severe Anaphylaxis Verified 10/08/22 17:58 shellfish derived Allergy Severe Anaphylaxis Verified 10/08/22 17:58 doxazosin Allergy Intermediate Rash Verified 10/08/22 17:58 tamsulosin [From Flomax] Allergy Intermediate Itching Verified 10/08/22 17:58 Tetanus Vaccines and Toxoid Allergy Unknown Unknown Verified 10/08/22 17:58 lamotrigine AdvReac Intermediate Confusion Verified 10/08/22 17:58 oxycodone [From Percocet] AdvReac Intermediate nausea/vomi Verified 10/08/22 17:58 ting propoxyphene [From Darvon] AdvReac Intermediate nausea/vomi Verified 10/08/22 17:58 ting Home Meds Home Medications Medication Instructions Recorded Confirmed atorvastatin 40 mg tablet 40 mg PO HS 05/28/20 10/08/22 fexofenadine 180 mg tablet 180 mg PO QAM 02/11/21 10/08/22 (Karlee Allergy) allopurinol 100 mg tablet 100 mg PO HS 04/10/21 10/08/22 cholecalciferol (vitamin D3) 50 4,000 unit PO HS 07/14/21 10/08/22 mcg (2,000 unit) capsule (Vitamin D3) insulin glargine 100 unit/mL (3 20 unit subcut BID 07/26/21 10/08/22 mL) subcutaneous pen (Lantus Solostar U-100 Insulin) albuterol sulfate 90 mcg/actuation 2 puff inhalation Q4H PRN 09/27/21 10/08/22 aerosol inhaler (Ventolin HFA) Shortness Of Breath Or Wheezing polyethylene glycol 3350 17 17 g PO PM 10/04/21 10/08/22 gram/dose oral powder (Miralax) furosemide 20 mg tablet 20 mg PO QAM 11/24/21 10/08/22 sennosides 8.6 mg tablet (Senokot) 8.6 mg PO QAM 11/24/21 10/08/22 insulin aspart U-100 100 unit/mL 1 sliding scale dose subcut ACHS 02/26/22 10/08/22 (3 mL) subcutaneous pen (Novolog FlexPen U-100 Insulin aspart) diclofenac sodium 1 % topical gel 2 g topical DAILY 05/21/22 10/08/22 (Voltaren Arthritis Pain) cyanocobalamin (vitamin B-12) 1,000 mcg PO QAM 08/14/22 10/08/22 1,000 mcg tablet,extended release (Vitamin B-12 ER) gabapentin 300 mg capsule 600 mg PO QAM 08/14/22 10/08/22 magnesium 250 mg tablet 250 mg PO QAM 08/14/22 10/08/22 pantoprazole 20 mg tablet,delayed 20 mg PO QAM 08/14/22 10/08/22 release (Protonix) potassium chloride 20 mEq 20 meq PO HS 08/14/22 10/08/22 tablet,extended release prednisone 5 mg tablet 5 mg PO QAM 08/14/22 10/08/22 carbidopa 25 mg-levodopa 100 mg 1 tab PO TID 08/23/22 10/08/22 tablet (Sinemet) finasteride 5 mg tablet (Proscar) 5 mg PO QAM 08/23/22 10/08/22 gabapentin 300 mg capsule 300 mg PO HS 09/30/22 10/08/22 lactulose 20 gram/30 mL oral 20 g PO PM 09/30/22 10/08/22 solution sodium chloride 0.65 % nasal spray 2 spray intranasal QID PRN DRYNESS 09/30/22 10/08/22 aerosol (Saline Mist) topiramate 100 mg tablet 100 mg PO BID 09/30/22 10/08/22 warfarin 7.5 mg tablet 7.5 mg PO DIRECTED 10/08/22 10/08/22 Previous Rx's Medication Instructions Recorded acetaminophen 325 mg tablet 650 mg PO Q4H PRN pain #30 tabs 08/04/21 aspirin 81 mg tablet,delayed 81 mg PO QAM #30 tabs 08/04/21 release fluticasone fur. 100 mcg-umeclid 1 inh inhalation QAM #60 ea 09/06/21 62.5 mcg-vilant 25 mcg inhalat.powder (Trelegy Ellipta) ferrous sulfate 325 mg (65 mg 325 mg PO QAM #30 tabs 05/26/22 iron) tablet,delayed release levetiracetam 500 mg tablet 1,000 mg PO BID #360 tabs 08/03/22 (Keppra) ondansetron 4 mg disintegrating 4 mg PO Q6H PRN nausea and 08/24/22 tablet vomiting #30 tabs oxycodone 5 mg tablet 5 mg PO DAILY PRN pain #20 tabs 08/24/22 tramadol 50 mg tablet 50 mg PO Q6H PRN pain, moderate 08/24/22 #30 tabs calcium polycarbophil 625 mg 625 mg PO QAM #30 tabs 09/14/22 tablet (Fiber (calcium polycarbophil)) Results & Data (ED) Vital Signs Vital Signs - 24 hr 10/08/22 17:01 10/08/22 17:07 10/08/22 17:07 Temperature 36.7 C Temperature Source Oral Pulse Rate 82 82 Pulse Rate [Right Apical] Pulse Rate from SpO2 Sensor Respiratory Rate 18 Respiratory Effort / Characteristics Non-Labored Spontaneous Respiratory Depth Normal Respiratory Pattern Regular Blood Pressure 129/72 Blood Pressure [Right Arm] Blood Pressure Mean 91 Blood Pressure Mean [Right Arm] Pulse Oximetry 95 95 Oxygen Delivery Method Room Air Room Air Sepsis Recent Fever Within 48 Hours No Sepsis New/Unexplained Change in Mental Status No Sepsis Action Taken by Nursing No Action Required 10/08/22 17:07 10/08/22 17:39 10/08/22 18:00 Temperature Temperature Source Pulse Rate 78 Pulse Rate [Right Apical] 82 Pulse Rate from SpO2 Sensor Respiratory Rate 18 15 Respiratory Effort / Characteristics Non-Labored Spontaneous Respiratory Depth Normal Respiratory Pattern Regular Blood Pressure 114/65 Blood Pressure [Right Arm] 129/72 Blood Pressure Mean 81 Blood Pressure Mean [Right Arm] 91 Pulse Oximetry 95 97 97 Oxygen Delivery Method Room Air Room Air Room Air Sepsis Recent Fever Within 48 Hours Sepsis New/Unexplained Change in Mental Status Sepsis Action Taken by Nursing 10/08/22 18:30 10/08/22 19:21 10/08/22 20:00 Temperature Temperature Source Pulse Rate 82 84 74 Pulse Rate [Right Apical] Pulse Rate from SpO2 Sensor 79 74 Respiratory Rate 21 21 15 Respiratory Effort / Characteristics Respiratory Depth Respiratory Pattern Blood Pressure 137/79 152/79 H 119/73 Blood Pressure [Right Arm] Blood Pressure Mean 98 103 88 Blood Pressure Mean [Right Arm] Pulse Oximetry 95 96 98 Oxygen Delivery Method Room Air Room Air Room Air Sepsis Recent Fever Within 48 Hours Sepsis New/Unexplained Change in Mental Status Sepsis Action Taken by Nursing 10/08/22 21:00 10/08/22 21:54 10/08/22 22:00 Temperature Temperature Source Pulse Rate 87 102 H 86 Pulse Rate [Right Apical] Pulse Rate from SpO2 Sensor Respiratory Rate 19 21 20 Respiratory Effort / Characteristics Respiratory Depth Respiratory Pattern Blood Pressure 138/77 138/83 137/81 Blood Pressure [Right Arm] Blood Pressure Mean 97 101 99 Blood Pressure Mean [Right Arm] Pulse Oximetry 96 95 94 Oxygen Delivery Method Room Air Room Air Room Air Sepsis Recent Fever Within 48 Hours Sepsis New/Unexplained Change in Mental Status Sepsis Action Taken by Alf Medications Current Medication List: was personally reviewed by me Laboratory Data Attestation: I reviewed the patient's lab results. 10/08/22 17:35 10/08/22 17:35 Lab Results 10/08/22 10/08/22 10/08/22 Range/Units 17:33 17:35 17:35 WBC 3.55 L (4.8-10.8) K/ul RBC 3.47 L (4.70-6.10) M/uL Hgb 9.8 L (14.0-18.0) g/dl Hct 30.2 L (42.0-52.0) % MCV 87.0 (80.0-100.0) fL MCH 28.2 (25.0-34.0) pg MCHC 32.5 (32.0-36.0) g/dL RDW Std Deviation 49.2 H (36.4-46.3) fL RDW Coeff of Lianne 15.6 H (11.5-14.5) % Plt Count 172 (130-400) K/uL MPV 10.1 (9.4-12.4) fL Immature Gran % (Auto) 0.8 % Neut % (Auto) 51.3 % Lymph % (Auto) 29.0 % [place] % (Auto) 7.9 % Eos % (Auto) 9.9 % Baso % (Auto) 1.1 % Neut # (Auto) 1.82 (1.40-6.50) K/uL Lymph # (Auto) 1.03 L (1.2-3.4) K/uL [place] # (Auto) 0.28 (0.11-0.59) K/uL Eos # (Auto) 0.35 (0-0.50) K/uL Baso # (Auto) 0.04 (0-0.2) K/uL Immature Gran # (Auto) 0.03 (0.01-0.20) K/uL PT (9.0-12.0) Seconds INR (0.9-1.1) APTT (21.0-31.0) Seconds PTT Ratio Sodium 137 (136-145) mmol/L Potassium 3.7 (3.5-5.1) mmol/L Chloride 109 H (98-107) mmol/L Carbon Dioxide 23 (21-32) mmol/L Anion Gap 5 (3-11) BUN 28 H (6-23) mg/dl Creatinine 1.42 H (0.6-1.4) mg/dl Est Cr Clr Drug Dosing 54.2 ml/min Est GFR ( Amer) 54.8 ml/min Est GFR (Non-Af Amer) 47.3 ml/min BUN/Creatinine Ratio 19.7 (10-20) Glucose 179 H (70-99(Fasting)) mg/dl Lactate 1.3 (0.4-2.0) mmol/L Calcium 8.9 (8.6-10.3) mg/dl Magnesium 1.8 (1.7-2.4) mg/dl Total Bilirubin 0.4 (0.2-1.0) mg/dl AST 20 (13-39) U/L ALT 15 (7-52) U/L Alkaline Phosphatase 60 (34-104) U/L Troponin I High Sens 7.9 (0-20) pg/ml Total Protein 5.5 L (6.0-8.3) gm/dl Albumin 3.3 L (3.4-5.0) gm/dl Globulin 2.2 L (2.5-4.0) gm/dl Albumin/Globulin Ratio 1.5 (0.9-2) TSH (0.300-4.500) uIu/ml Prolactin ng/ml Urine Color Urine Appearance (Clear) Urine pH (4.5-7.5) Ur Specific [place] (1.000-1.030) Urine Protein (Negative) Urine Glucose (UA) (Negative) Urine Ketones (Negative) Urine Blood (Negative) Urine Nitrite (Negative) Urine Bilirubin (Negative) Urine Urobilinogen (Negative) Ur Leukocyte Esterase (Negative) SARS-CoV-2, RNA, NAAT (NEGATIVE) Blood Type Antibody Screen Crossmatch 10/08/22 10/08/22 10/08/22 Range/Units 17:35 17:35 17:43 WBC (4.8-10.8) K/ul RBC (4.70-6.10) M/uL Hgb (14.0-18.0) g/dl Hct (42.0-52.0) % MCV (80.0-100.0) fL MCH (25.0-34.0) pg MCHC (32.0-36.0) g/dL RDW Std Deviation (36.4-46.3) fL RDW Coeff of Lianne (11.5-14.5) % Plt Count (130-400) K/uL MPV (9.4-12.4) fL Immature Gran % (Auto) % Neut % (Auto) % Lymph % (Auto) % [place] % (Auto) % Eos % (Auto) % Baso % (Auto) % Neut # (Auto) (1.40-6.50) K/uL Lymph # (Auto) (1.2-3.4) K/uL [place] # (Auto) (0.11-0.59) K/uL Eos # (Auto) (0-0.50) K/uL Baso # (Auto) (0-0.2) K/uL Immature Gran # (Auto) (0.01-0.20) K/uL PT 40.3 H (9.0-12.0) Seconds INR 4.0 H (0.9-1.1) APTT 47.2 H* (21.0-31.0) Seconds PTT Ratio 1.7 Sodium (136-145) mmol/L Potassium (3.5-5.1) mmol/L Chloride (98-107) mmol/L Carbon Dioxide (21-32) mmol/L Anion Gap (3-11) BUN (6-23) mg/dl Creatinine (0.6-1.4) mg/dl Est Cr Clr Drug Dosing ml/min Est GFR ( Amer) ml/min Est GFR (Non-Af Amer) ml/min BUN/Creatinine Ratio (10-20) Glucose (70-99(Fasting)) mg/dl Lactate (0.4-2.0) mmol/L Calcium (8.6-10.3) mg/dl Magnesium (1.7-2.4) mg/dl Total Bilirubin (0.2-1.0) mg/dl AST (13-39) U/L ALT (7-52) U/L Alkaline Phosphatase (34-104) U/L Troponin I High Sens (0-20) pg/ml Total Protein (6.0-8.3) gm/dl Albumin (3.4-5.0) gm/dl Globulin (2.5-4.0) gm/dl Albumin/Globulin Ratio (0.9-2) TSH 1.875 (0.300-4.500) uIu/ml Prolactin 10.92 ng/ml Urine Color Urine Appearance (Clear) Urine pH (4.5-7.5) Ur Specific [place] (1.000-1.030) Urine Protein (Negative) Urine Glucose (UA) (Negative) Urine Ketones (Negative) Urine Blood (Negative) Urine Nitrite (Negative) Urine Bilirubin (Negative) Urine Urobilinogen (Negative) Ur Leukocyte Esterase (Negative) SARS-CoV-2, RNA, NAAT (NEGATIVE) Blood Type Antibody Screen Crossmatch 10/08/22 10/08/22 10/08/22 Range/Units 17:45 19:35 20:12 WBC (4.8-10.8) K/ul RBC (4.70-6.10) M/uL Hgb (14.0-18.0) g/dl Hct (42.0-52.0) % MCV (80.0-100.0) fL MCH (25.0-34.0) pg MCHC (32.0-36.0) g/dL RDW Std Deviation (36.4-46.3) fL RDW Coeff of Lianne (11.5-14.5) % Plt Count (130-400) K/uL MPV (9.4-12.4) fL Immature Gran % (Auto) % Neut % (Auto) % Lymph % (Auto) % [place] % (Auto) % Eos % (Auto) % Baso % (Auto) % Neut # (Auto) (1.40-6.50) K/uL Lymph # (Auto) (1.2-3.4) K/uL [place] # (Auto) (0.11-0.59) K/uL Eos # (Auto) (0-0.50) K/uL Baso # (Auto) (0-0.2) K/uL Immature Gran # (Auto) (0.01-0.20) K/uL PT (9.0-12.0) Seconds INR (0.9-1.1) APTT (21.0-31.0) Seconds PTT Ratio Sodium (136-145) mmol/L Potassium (3.5-5.1) mmol/L Chloride (98-107) mmol/L Carbon Dioxide (21-32) mmol/L Anion Gap (3-11) BUN (6-23) mg/dl Creatinine (0.6-1.4) mg/dl Est Cr Clr Drug Dosing ml/min Est GFR ( Amer) ml/min Est GFR (Non-Af Amer) ml/min BUN/Creatinine Ratio (10-20) Glucose (70-99(Fasting)) mg/dl Lactate (0.4-2.0) mmol/L Calcium (8.6-10.3) mg/dl Magnesium (1.7-2.4) mg/dl Total Bilirubin (0.2-1.0) mg/dl AST (13-39) U/L ALT (7-52) U/L Alkaline Phosphatase (34-104) U/L Troponin I High Sens (0-20) pg/ml Total Protein (6.0-8.3) gm/dl Albumin (3.4-5.0) gm/dl Globulin (2.5-4.0) gm/dl Albumin/Globulin Ratio (0.9-2) TSH (0.300-4.500) uIu/ml Prolactin ng/ml Urine Color Yellow Urine Appearance Clear (Clear) Urine pH 6.5 (4.5-7.5) Ur Specific [place] 1.019 (1.000-1.030) Urine Protein Negative (Negative) Urine Glucose (UA) Negative (Negative) Urine Ketones Negative (Negative) Urine Blood Negative (Negative) Urine Nitrite Negative (Negative) Urine Bilirubin Negative (Negative) Urine Urobilinogen Negative (Negative) Ur Leukocyte Esterase Negative (Negative) SARS-CoV-2, RNA, NAAT NEGATIVE (NEGATIVE) Blood Type O Positive Antibody Screen NEGATIVE Crossmatch See Detail Administered Medications Discontinued Medications Sodium Chloride (Nss 1000ml) 500 mls @ 999 mls/hr IV .Q31M ONE Stop: 10/08/22 18:03 Last Infusion: 10/08/22 18:04 Dose: 0 mls/hr Documented By: Infusion: 10/08/22 18:03 Dose: 0 mls/hr Documented By: Admin: 10/08/22 17:41 Dose: 999 mls/hr Documented By: MATTHEW Levetiracetam 500 mg/ Sodium (Chloride) 105 mls @ 440 mls/hr IV NOW STA Stop: 10/08/22 17:47 Last Infusion: 10/08/22 18:14 Dose: 0 mls/hr Documented By: Admin: 10/08/22 17:58 Dose: 440 mls/hr Documented By: MATTHEW Lorazepam (Lorazepam 2 Mg/1 Ml Vial) Confirm Administered Dose 2 mg .ROUTE .STK- MED ONE Stop: 10/08/22 17:31 Last Admin: 10/08/22 18:19 Dose: Not Given Documented By: MATTHEW Lorazepam (Lorazepam 2 Mg/1 Ml Vial) 1 mg IV NOW STA Stop: 10/08/22 17:34 Last Admin: 10/08/22 17:40 Dose: 1 mg Documented By: MATTHEW Imaging Data Radiologist's Impression: Chest X-Ray 10/08/22 17:33 XR chest 1V portable CLINICAL HISTORY: weakness TECHNIQUE: Single frontal radiograph of the chest was obtained. Comparison: Comparison is made to chest radiograph 07/03/2022 FINDINGS: Median sternotomy wires are unchanged. Cardiomegaly is noted. The lungs are clear. No evidence of pleural effusion or pneumothorax. IMPRESSION: No acute chest disease. ACT 112: Negative or not required by law. Electronically signed by: Russell Sifuentes M.D. 10/08/2022 6:[address] 10/08/22 17:33 CT head/brain wo con CLINICAL HISTORY: weakness Technique: Contiguous axial CT images of the head were acquired from the base of the skull to the vertex without intravenous contrast administration. Images were viewed in brain, subdural and bone windows. Automated dose lowering techniques and/or adjustment according to patient size were utilized for this exam. Comparison: Comparison is made to CT head 09/10/20192019 Findings: Areas of decreased attenuation are present in the periventricular and subcortical white matter bilaterally consistent with small vessel ischemic disease. Generalized cerebral atrophy with commensurate enlargement of the ventricles, sulci, and cisterns is also present. There is no acute intracranial hemorrhage or evidence of acute territorial infarction. No shift of the midline structures, mass effect, or extra-axial abnormalities are shown. Atherosclerotic calcifications are present in the intracranial segments of the internal carotid arteries. Imaged portions of the paranasal sinuses and mastoid air cells are clear. The orbits appear normal. There are no acute fractures of the calvaria or scalp swelling. Impression: No acute intracranial hemorrhage, no evidence of acute territorial infarction or other acute intracranial disease process. ACT 112: Negative or not required by law. Electronically signed by: Russell Sifuentes M.D. 10/08/2022 6:54 PM Discharge Plan Visit Data Stated Complaint: WEAKNESS, TIRED ED Provider: Tan Lowe Discharge Problem: Weakness, Anemia, Acute GI bleeding, Coagulopathy Patient Disposition: Admitted As Inpatient Condition: Serious Forms Stand Alone Forms: My [facility] Crono Prescriptions Prescriptions: No Action Heather Ellipta 100-62.5-25 mcg blister with device 1 inh inhalation QAM Qty: 60 5RF levetiracetam [Keppra] 500 mg tablet 1,000 mg PO BID Qty: 360 3RF cholecalciferol (vitamin D3) [Vitamin D3] 50 mcg (2,000 unit) capsule 4,000 unit PO HS atorvastatin 40 mg tablet 40 mg PO HS fexofenadine [Karlee Allergy] 180 mg Tablet 180 mg PO QAM acetaminophen 325 mg Tablet 650 mg PO Q4H PRN (Reason: pain) Qty: 30 0RF Rx Instructions: OTC aspirin 81 mg Tablet,Delayed Release (Dr/Ec) 81 mg PO QAM Qty: 30 0RF Rx Instructions: OTC albuterol sulfate [Ventolin HFA] 90 mcg/actuation HFA aerosol inhaler 2 puff INHALATION Q4H PRN (Reason: Shortness Of Breath Or Wheezing) diclofenac sodium [Voltaren Arthritis Pain] 1 % Gel 2 g TOPICAL DAILY Rx Instructions: left knee ferrous sulfate 325 mg (65 mg iron) Tablet,Delayed Release (Dr/Ec) 325 mg PO QAM Qty: 30 0RF prednisone 5 mg Tablet 5 mg PO QAM gabapentin 300 mg capsule 600 mg PO QAM Rx Instructions: 600mg in am/300mg in pm pantoprazole [Protonix] 20 mg Tablet,Delayed Release (Dr/Ec) 20 mg PO QAM potassium chloride 20 mEq Tablet Extended Release 20 meq PO HS cyanocobalamin (vitamin B-12) [Vitamin B-12] 1,000 mcg Tablet Extended Release 1,000 mcg PO QAM magnesium 250 mg Tablet 250 mg PO QAM carbidopa-levodopa [Sinemet] 25-100 mg tablet 1 tab PO TID finasteride [Proscar] 5 mg tablet 5 mg PO QAM tramadol 50 mg tablet 50 mg PO Q6H PRN (Reason: pain, moderate) Qty: 30 0RF ondansetron 4 mg tablet,disintegrating 4 mg PO Q6H PRN (Reason: nausea and vomiting) Qty: 30 0RF oxycodone 5 mg tablet 5 mg PO DAILY PRN (Reason: pain) Qty: 20 0RF allopurinol 100 mg tablet 100 mg PO HS insulin glargine [Lantus Solostar U-100 Insulin] 100 unit/mL (3 mL) insulin pen 20 unit SUBCUT BID polyethylene glycol 3350 [Miralax] 17 gram/dose powder 17 g PO PM furosemide 20 mg tablet 20 mg PO QAM sennosides [Senokot] 8.6 mg tablet 8.6 mg PO QAM insulin aspart U-100 [Novolog FlexPen U-100 Insulin] 100 unit/mL (3 mL) insulin pen 1 sliding scale dose subcut ACHS Rx Instructions: supplemental scale for meal-time coverage and bed-time coverage. calcium polycarbophil [Fiber (calcium polycarbophil)] 625 mg Tablet 625 mg PO QAM Qty: 30 0RF Rx Instructions: OTC gabapentin 300 mg capsule 300 mg PO HS topiramate 100 mg tablet 100 mg PO BID Saline Mist 0.65 % aerosol,spray 2 spray intranasal QID PRN (Reason: DRYNESS) lactulose 20 gram/30 mL solution 20 g PO PM warfarin 7.5 mg tablet 7.5 mg PO DIRECTED Rx Instructions: As directed by anticoagulation clinic. Referrals Referrals: Josemanuel Melo MD [Primary Care Provider] -
--- NOTE | 2022-10-08 18:17 | XRay Report ---
XR chest 1V portable CLINICAL HISTORY: weakness TECHNIQUE: Single frontal radiograph of the chest was obtained. Comparison: Comparison is made to chest radiograph 07/03/2022 FINDINGS: Median sternotomy wires are unchanged. Cardiomegaly is noted. The lungs are clear. No evidence of ple ural effusion or pneumothorax. IMPRESSION: No acute chest disease. ACT 112: Negative or not required by law. Electronically signed by: Russell Sifuentes M.D. 10/08/2022 6:16 PM
[2022-10-08 18:22] LABS: Albumin Globulin Ratio 1.5 (0.9-2); Albumin Level 3.3 gm/dl (3.4-5.0); BUN Creatinine Ratio 19.7 (10-20); Bilirubin,Total 0.4 mg/dl (0.2-1.0); Calcium 8.9 mg/dl (8.6-10.3); Creatinine Clr Calc Pharmacy 54.2 ml/min; Est GFR (African American) 54.8 ml/min; Est GFR (Non-African American) 47.3 ml/min; Globulin 2.2 gm/dl (2.5-4.0); Magnesium 1.8 mg/dl (1.7-2.4); Potassium 3.7 mmol/L (3.5-5.1); Total Protein 5.5 gm/dl (6.0-8.3)
[2022-10-08 18:28] LABS: Troponin I High Sensitivity 7.9 pg/ml (0-20)
[2022-10-08 18:33] LABS: Basophils # (auto) 0.04 K/uL (0-0.2); Basophils % (auto) 1.1 %; Eosinophils # (auto) 0.35 K/uL (0-0.50); Eosinophils % (auto) 9.9 %; Hematocrit (blood only) 30.2 % (42.0-52.0); Hemoglobin 9.8 g/dl (14.0-18.0); Immature Granulocytes # (auto) 0.03 K/uL (0.01-0.20); Immature Granulocytes % (auto) 0.8 %; Lymphocytes # (auto) 1.03 K/uL (1.2-3.4); Mean Corpuscular Hemoglobin 28.2 pg (25.0-34.0); Mean Corpuscular Hgb Conc 32.5 g/dL (32.0-36.0); Mean Platelet Volume 10.1 fL (9.4-12.4); Monocytes # (auto) 0.28 K/uL (0.11-0.59); Monocytes % (auto) 7.9 %; Neutrophils # (auto) 1.82 K/uL (1.40-6.50); Neutrophils % (auto) 51.3 %; Platelet Count 172 K/uL (130-400); RDW Coefficient of Variation 15.6 % (11.5-14.5); RDW Standard Deviation 49.2 fL (36.4-46.3); Red Blood Count 3.47 M/uL (4.70-6.10); White Blood Count 3.55 K/ul (4.8-10.8)
[2022-10-08 18:55] LABS: Partial Thromboplastin Ratio 1.7; Prothrombin Time 40.3 Seconds (9.0-12.0)
--- NOTE | 2022-10-08 18:56 | CT Scan Report ---
CT head/brain wo con CLINICAL HISTORY: weakness Technique: Contiguous axial CT images of the head were acquired from the base of the skull to the samantha silvio without intravenous contrast administration. Images were viewed in brain, subdural and [facility] . Automated dose lowering techniques and/or adjustment according to patient size were utilized for this exam. Comparison: Comparison is made to CT head 09/10/20192019 Findings: Areas of decreased attenuation are present in the periventricular and subcortical white matter bilate rally consistent with small vessel ischemic disease. Generalized cerebral atrophy with commensurate e nlargement of the ventricles, sulci, and cisterns is also present. There is no acute intracranial hem orrhage or evidence of acute territorial infarction. No shift of the midline structures, mass effect, or extra-axial abnormalities are shown. Atherosclerotic calcifications are present in the intracran ial segments of the internal carotid arteries. Imaged portions of the paranasal sinuses and mastoid air cells are clear. The orbits appear normal. There are no acute fractures of the calvaria or scalp swelling. Impression: No acute intracranial hemorrhage, no evidence of acute territorial infarction or other acute intracra nial disease process. ACT 112: Negative or not required by law. Electronically signed by: Russell Sifuentes M.D. 10/08/2022 6:54 PM
[2022-10-08 19:17] LABS: Partial Thromboplastin Time 47.2 Seconds (21.0-31.0)
[2022-10-08] MEDS ORDERED: SODIUM CHLORIDE 0.9% 250 ML IV PRN (19:22)
[2022-10-08 20:33] LABS: Appearance Urine Clear (Clear); Bilirubin Urine Negative (Negative); Blood Urine Negative (Negative); Color Urine Yellow; Glucose Urine UA Negative (Negative); Ketones Urine Negative (Negative); Leukocyte Esterase Urine Negative (Negative); Nitrite Urine Negative (Negative); Protein Urine Negative (Negative); Specific Gravity Urine 1.019 (1.000-1.030); Urobilinogen Urine Negative (Negative); pH Urine 6.5 (4.5-7.5)
--- NOTE | 2022-10-08 21:55 | History & Physical Report ---
Date of Service October 08, 2022 Assessment & Plan (1) GI bleed: Plan: Patient is a 77-year-old male with past medical history of seizure disorder, depression, mechanical heart valve, CKD 3A, CAD, rheumatoid arthritis, diabetes, atrial fibrillation, ambulatory dysfunction, multiple falls, parkinsonism, and history of prostate cancer who presented to the ED today for increasing weakness and fatigue with possible seizure activity. Patient has been experiencing prog ressively worsening weakness and has been noticing maroon stools suggestive of a GI bleed. Patient is admitted and blood consented and is currently hemodynamically stable. -Admit to [facility] with telemetry -Seems to be a longstanding issue, however, GI bleed worsening within the last few days. -Based off of previous admission notes, patient does seem to have difficulty with on and off constipation with episodes of diarrhea as well, likely suggestive of overflow diarrhea -Patient does have supratherapeutic INR at 4.0 -We will hold warfarin and aspirin in setting of GI bleed -Protonix BID IV -GI consulted, appreciate recommendations -N.p.o. after midnight in case of needing procedure -Due to it being maroon blood, could be ascending colon bleed or distal small bowel bleed -Patient does have a history of diverticulosis per previous CT scans of the abdomen but I would expect this to be bright red blood per rectum if this were the issue (2) Seizure disorder: Plan: - Multiple neurology consults in the past and negative EEGs -Previous admission consultation note from neurology states that it is not felt that the patient has epilepsy -However, given frequent nonepileptic seizures, continue Keppra and topiramate per neurology -Episode in ED not suggestive of true seizure given responsiveness to stimulus and no postictal state, negative prolactin -For this reason, will not put in as needed Ativan for seizures at this time (3) Supratherapeutic INR: Plan: - Hold warfarin as above in setting of GI bleed and supratherapeutic INR -Given A-fib with valve replacement, goal is 2.5-3.5 for INR when able to restart -Given patient is high risk and has what appears to be a slow GI bleed, did not give vitamin K at this time (4) CAD (coronary artery disease): Plan: -Currently holding asa -continue atorvastatin (5) Rheumatoid arthritis: Plan: -Continue prednisone (6) Diabetes: Plan: - Reduced insulin regimen to 10 units twice daily with sliding scale given n.p.o. status at midnight -Typically takes 20 units twice daily at home -DM2 diet (7) Cellulitis of left hand: Plan: - See note from previous ED visit on 09/30/2022 -Continue Keflex for 4.5 more days, ancef IV while NPO not to miss doses (8) Mechanical heart valve present: Plan: -noted (9) Chronic kidney disease, stage 3a: Plan: -noted, renally dose medications as necessary Plan Diet: DM2. Heart Healthy. NPO after midnight DVT prophylaxis: None in setting of GI bleed Disposition: Admit to [facility] with telemetry, GI consulted, PT/OT consulted CODE STATUS: Full code as discussed with patient, patient does have POLST form in chart History of Present Illness Chief Complaint: Weakness Primary Care Provider: Josemanuel Melo MD Patient is a 77-year-old male with past medical history of seizure disorder, depression, mechanical heart valve, CKD 3A, CAD, rheumatoid arthritis, diabetes, atrial fibrillation, ambulatory dysfunction, multiple falls, parkinsonism, and history of prostate cancer who presented to the ED today for increasing weakness and fatigue with possible seizure activity. History is somewhat limited at this time as patient is quite lethargic and only minimally answers questions. Sometimes the questions I ask I am not receiving an appropriate response and will go off about other things that have nothing to do with the question. HPI mostly from ED provider note and some answers from patient albeit not sure of their accuracy. Was able to of him that he has had bloody stools for months, however, over the past few days there has been more blood present in the stools. ED provider reports that his stool was Hemoccult positive. He is unsure if he took his medications this evening. Otherwise no other meaningful HPI noted at this time. ED Course: Patient was seen by one of our ED providers. One of these seizure- like episodes occurred while in the ED, however, ED provider informs me that he was able to adjust his glasses to make them crooked and during the event the patient straighten them back out. Additionally, the provider gave a sternal rub and again while this event was happening, the patient was able to take his hand and push away the ED providers hand. This makes it unlikely that these are seizures and the patient did not have a postictal state it was able to talk after 1 of these events. Labs were significant for a negative white blood cell count of 3.55, hemoglobin of 9.8 which is lower than baseline. It is dropped from 11 since his last ED visit on 09/30/2022. INR of 4.0, APTT of 47.2, creatinine of 1.42, glucose of 179, and negative urinalysis. Chest x-ray and head CT both negative for acute process. The hospitalist service was then consulted for evaluation for active GI bleed. Allergies Allergy/AdvReac Type Severity Reaction Status Date / Time bee venom protein (honey bee) Allergy Severe anaphylaxis Verified 10/08/22 17:58 Iodinated Contrast Media Allergy Severe Anaphylaxis Verified 10/08/22 17:58 shellfish derived Allergy Severe Anaphylaxis Verified 10/08/22 17:58 doxazosin Allergy Intermediate Rash Verified 10/08/22 17:58 tamsulosin [From Flomax] Allergy Intermediate Itching Verified 10/08/22 17:58 Tetanus Vaccines and Toxoid Allergy Unknown Unknown Verified 10/08/22 17:58 lamotrigine AdvReac Intermediate Confusion Verified 10/08/22 17:58 oxycodone [From Percocet] AdvReac Intermediate nausea/vomi Verified 10/08/22 17:58 ting propoxyphene [From Darvon] AdvReac Intermediate nausea/vomi Verified 10/08/22 17:58 ting Home Medications Medication Instructions Recorded Confirmed Type atorvastatin 40 mg tablet 40 mg PO HS 05/28/20 10/08/22 History fexofenadine 180 mg tablet 180 mg PO QAM 02/11/21 10/08/22 History (Karlee Allergy) allopurinol 100 mg tablet 100 mg PO HS 04/10/21 10/08/22 History cholecalciferol (vitamin D3) 50 4,000 unit PO HS 07/14/21 10/08/22 History mcg (2,000 unit) capsule (Vitamin D3) insulin glargine 100 unit/mL (3 20 unit subcut BID 07/26/21 10/08/22 History mL) subcutaneous pen (Lantus Solostar U-100 Insulin) acetaminophen 325 mg tablet 650 mg PO Q4H PRN pain #30 tabs 08/04/21 10/08/22 Rx aspirin 81 mg tablet,delayed 81 mg PO QAM #30 tabs 08/04/21 10/08/22 Rx release fluticasone fur. 100 mcg-umeclid 1 inh inhalation QAM #60 ea 09/06/21 10/08/22 Rx 62.5 mcg-vilant 25 mcg inhalat.powder (Trelegy Ellipta) albuterol sulfate 90 mcg/actuation 2 puff inhalation Q4H PRN 09/27/21 10/08/22 History aerosol inhaler (Ventolin HFA) Shortness Of Breath Or Wheezing polyethylene glycol 3350 17 17 g PO PM 10/04/21 10/08/22 History gram/dose oral powder (Miralax) furosemide 20 mg tablet 20 mg PO QAM 11/24/21 10/08/22 History sennosides 8.6 mg tablet (Senokot) 8.6 mg PO QAM 11/24/21 10/08/22 History insulin aspart U-100 100 unit/mL 1 sliding scale dose subcut ACHS 02/26/22 10/08/22 History (3 mL) subcutaneous pen (Novolog FlexPen U-100 Insulin aspart) diclofenac sodium 1 % topical gel 2 g topical DAILY 05/21/22 10/08/22 History (Voltaren Arthritis Pain) ferrous sulfate 325 mg (65 mg 325 mg PO QAM #30 tabs 05/26/22 10/08/22 Rx iron) tablet,delayed release levetiracetam 500 mg tablet 1,000 mg PO BID #360 tabs 08/03/22 10/08/22 Rx (Keppra) cyanocobalamin (vitamin B-12) 1,000 mcg PO QAM 08/14/22 10/08/22 History 1,000 mcg tablet,extended release (Vitamin B-12 ER) gabapentin 300 mg capsule 600 mg PO QAM 08/14/22 10/08/22 History magnesium 250 mg tablet 250 mg PO QAM 08/14/22 10/08/22 History pantoprazole 20 mg tablet,delayed 20 mg PO QAM 08/14/22 10/08/22 History release (Protonix) potassium chloride 20 mEq 20 meq PO HS 08/14/22 10/08/22 History tablet,extended release prednisone 5 mg tablet 5 mg PO QAM 08/14/22 10/08/22 History carbidopa 25 mg-levodopa 100 mg 1 tab PO TID 08/23/22 10/08/22 History tablet (Sinemet) finasteride 5 mg tablet (Proscar) 5 mg PO QAM 08/23/22 10/08/22 History ondansetron 4 mg disintegrating 4 mg PO Q6H PRN nausea and 08/24/22 10/08/22 Rx tablet vomiting #30 tabs oxycodone 5 mg tablet 5 mg PO DAILY PRN pain #20 tabs 08/24/22 10/08/22 Rx tramadol 50 mg tablet 50 mg PO Q6H PRN pain, moderate 08/24/22 10/08/22 Rx #30 tabs calcium polycarbophil 625 mg 625 mg PO QAM #30 tabs 09/14/22 10/08/22 Rx tablet (Fiber (calcium polycarbophil)) gabapentin 300 mg capsule 300 mg PO HS 09/30/22 10/08/22 History lactulose 20 gram/30 mL oral 20 g PO PM 09/30/22 10/08/22 History solution sodium chloride 0.65 % nasal spray 2 spray intranasal QID PRN DRYNESS 09/30/22 10/08/22 History aerosol (Saline Mist) topiramate 100 mg tablet 100 mg PO BID 09/30/22 10/08/22 History warfarin 7.5 mg tablet 7.5 mg PO DIRECTED 10/08/22 10/08/22 History Past Med/Surg History Medical History Anemia history of blood transfusion, 2020 Anxiety Aortic ectasia, thoracic Aspiration pneumonia hx of--per pt was due to pain medications Asthma inhaler daily and prn CAD (coronary artery disease) follows with Dr. 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 Kori MONTAGUE (hyperlipidemia) Hypokalemia Idiopathic polyneuropathy Interstitial lung disease due to connective tissue disease inhaler daily and prn and uses 2L N/C at hs Migraine Neck pain Neurogenic claudication due to lumbar spinal stenosis On home oxygen therapy 2L at hs Pancytopenia Parkinsonism per pt has a difficulty swallowing, states certain foods can be difficult to eat Pneumonia hx of, per pt last admission @ [facility] was 05/2022 Polymyositis Prostate cancer radiation Rheumatoid arthritis Shortness of breath per pt on with exertion Somatic dysfunction of cervical region Stroke-like symptom 12/2019, w/ blurry vision and dysarthria. mild R sided wkness. attending outpatient physical therapy w/ good improvement in strength (5+/5 strength of all 4 extremities as of 05/28/20) Supratherapeutic INR Thoracic ascending aortic aneurysm s/p repair TIA (transient ischemic attack) 2019--no deficits--follows with Dr. Sheikh Surgical History H/O hernia repair History of aortic valve replacement 2003 @ [facility] in [place], [place] History of appendectomy History of bilateral cataract extraction History of cardiac cath x3--2018 @ [facility] with 1 stent placed/2019 @ [facility]/last 04/2021 @ [facility] History of cholecystectomy History of colonoscopy History of esophagogastroduodenoscopy (EGD) History of fusion of cervical spine normal ROM History of gastric bypass 2007--lap band History of heart artery stent x1--2017 @ [facility] History of lumbar spinal fusion History of lung biopsy 2019 History of partial nephrectomy 1986 on right kidney History of prostate biopsy malignant History of tonsillectomy History of tooth extraction all upper teeth removed Family History Mother , age 87 of pulmonary issues Rheumatoid arthritis Father , in his mid 80s of a stroke Stroke Other Coronary heart disease No family history of adverse response to anesthesia Social History Smoking Status: Never smoker Second Hand Exposure: No; Do You Dip or Chew Tobacco: No; Hx Alcohol Use: No Hx Substance Use: No Preferred Language: Brazilian Communication Ability: Effective Hearing Ability: Hard of Hearing Production Miner Required: No Beliefs That Will Affect Care: None marital status: / Current Living Situation: Alone Current Living Situation Comment: lives at the [facility] current occupational status: retired 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 How many Children do You have: 2 How many Children do You have Comment: son Feels Safe at Home: Yes Assistive Devices: Scooter/Electric Scooter, Walker and Other Review of Systems Review of Systems: All systems reviewed & are unremarkable except as noted in HPI & below Physical Exam Constitutional: WD/WN, vitals as above Eyes: + anicteric sclerae Neck: normal visual inspection Respiratory: normal respiratory effort; no respiratory distress Cardiovascular: Rate/Rhythm: regular rate and regular rhythm Extremities: + edema (trace) Gastrointestinal (Abdomen): normal bowel sounds, soft, nontender, no hepatosplenomegaly Musculoskeletal: Head/Neck/Chest: normocephalic and head atraumatic Skin: no rashes, warm and dry Neurologic: moves all extremities Psychiatric: Orientation: oriented to person, oriented to place and cooperative Affect: + flat affect Results & Data Results & Data Vital Signs (Past 12 Hours) Vital Signs Temp Pulse Pulse Resp BP BP Pulse Ox 10/08/22 21:00 87 19 138/77 96 10/08/22 20:00 74 15 119/73 98 10/08/22 19:21 84 21 152/79 H 96 10/08/22 18:30 82 21 137/79 95 10/08/22 18:00 78 15 114/65 97 10/08/22 17:39 97 10/08/22 17:07 82 18 129/72 95 10/08/22 17:07 95 10/08/22 17:07 36.7 C 82 18 129/72 95 10/08/22 17:01 82 O2 Del Method 10/08/22 21:00 Room Air 10/08/22 20:00 Room Air 10/08/22 19:21 Room Air 10/08/22 18:30 Room Air 10/08/22 18:00 Room Air 10/08/22 17:39 Room Air 10/08/22 17:07 Room Air 10/08/22 17:07 Room Air 10/08/22 17:07 Room Air 10/08/22 17:01 (4) CAD (coronary artery disease) Associated angina: without angina Coronary Disease-Associated Artery/Lesion type: [place] artery [place] vs. transplanted heart: [place] heart Qualified Code(s): I25.10 - Atherosclerotic heart disease of [place] coronary artery without angina pectoris (5) Rheumatoid arthritis Rheumatoid arthritis location: unspecified site Rheumatoid factor presence: unspecified presence Qualified Code(s): M06.9 - Rheumatoid arthritis, unspecified (6) Diabetes Diabetes mellitus complication detail: with polyneuropathy Diabetes mellitus complication status: with neurologic complications Diabetes mellitus long-term insulin use: with long-term use Diabetes mellitus type: type 2 Qualified Code(s): E11.42 - Type 2 diabetes mellitus with diabetic polyneuropathy; 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
[2022-10-09] MEDS ORDERED: CARBOHYDRATES FOR HYPOGLYCEMIA PO PRN (00:02)
[2022-10-09] MEDS ORDERED: ACETAMINOPHEN 325 MG TAB PO PRN (00:02)
[2022-10-09] MEDS ORDERED: GLUCOSE 40% GEL 15 GM TUBE PO PRN (00:02)
[2022-10-09] MEDS ORDERED: ONDANSETRON INJ 2 MG/ML 2 ML VIAL IV PRN (00:02)
[2022-10-09] MEDS ORDERED: GLUCAGON FOR INJ 1 MG VIAL SQ PRN (00:02)
[2022-10-09] MEDS ORDERED: GLUCOSE 10 TAB/TUBE PO PRN (00:02)
[2022-10-09] MEDS ORDERED: oxyCODONE HCL IR 5 MG TAB (IMMEDIATE RELEASE) PO PRN (00:02)
[2022-10-09] MEDS ORDERED: ALBUTEROL HFA 8 GM INHALER INH PRN (00:02)
[2022-10-09] MEDS ORDERED: DEXTROSE 50% 50 ML SYRINGE IV PRN (00:02)
[2022-10-09] MEDS: levETIRAcetam 500 MG TAB PO SCH ×3 (00:43→20:51)
[2022-10-09] MEDS: TOPIRAMATE 100 MG TAB PO SCH ×3 (00:43→20:57)
[2022-10-09] MEDS: ceFAZolin 2000MG 2,000 MG/15 ML SYR IV SCH ×2 (00:43→08:34)
[2022-10-09] MEDS: PANTOprazole 40 MG in SYRINGE 0 ML IV SCH ×3 (00:43→20:56)
[2022-10-09] MEDS ORDERED: Nursing to Pharmacy Communication SCH (01:00)
[2022-10-09] MEDS: INSULIN ASPART PER UNIT CHARGE SC SCH ×4 (05:57→20:50)
[2022-10-09] MEDS: FERROUS SULFATE 325 MG TAB PO SCH (05:57)
[2022-10-09] MEDS ORDERED: INSULIN ASPART PER UNIT CHARGE SC SCH (07:30)
--- NOTE | 2022-10-09 07:45 | Hospitalist Progress Note ---
Date of Service October 09, 2022 Assessment & Plan (1) GI bleed: (2) Seizure disorder: (3) Supratherapeutic INR: (4) CAD (coronary artery disease): (5) Rheumatoid arthritis: (6) Diabetes: (7) Cellulitis of left hand: (8) Mechanical heart valve present: (9) Chronic kidney disease, stage 3a: Plan Patient is a 77-year-old male with past medical history of seizure disorder, dep ression, mechanical heart valve, CKD 3A, CAD, rheumatoid arthritis, diabetes, atrial fibrillation, ambulatory dysfunction, multiple falls, parkinsonism, and history of prostate cancer who presented to the ED today for increasing weakness and fatigue with possible seizure activity. Patient has been experiencing progressively worsening weakness and has been noticing maroon stools suggestive of a GI bleed. Patient is admitted and blood consented and is currently hemodynamically stable. GI bleed- resolved -Based off of previous admission notes, patient does seem to have difficulty with on and off constipation with episodes of diarrhea as well -Initially held warfarin due to supratherapeutic INR and possible GIB -Protonix BID IV -Hemoglobin of 9.8 on admission, 9.6 on 10/09, Hemoccult positive on 10/08. -GI consulted: - No inpatient intervention needed at this time. - Recommend Colace 100 mg twice daily and MiraLAX as needed. - May restart anticoagulation at this time. -We will restart warfarin and aspirin on 10/09 restarted diet, CBC in a.m. Seizure disorder -Multiple neurology consults in the past and negative EEGs -Previous admission consultation note from neurology states that it is not felt that the patient has epilepsy -However, given frequent nonepileptic seizures, continue Keppra and topiramate per neurology -No as needed Ativan ordered at this time. Supratherapeutic INR -Held warfarin as above in setting of GI bleed and supratherapeutic INR at time of admission. -INR of 4.0 on 10/08, improved to 3.1 on 10/09. -Restarted warfarin on 10/09 at 7 mg rather than 7.5 mg that patient was on previously. -Given A-fib with valve replacement, goal is 2.5-3.5 for INR. CAD -Currently holding asa, continue aspirin every morning on 10/10. -continue atorvastatin RA -Continue prednisone DM -Initially insulin regimen reduced to 10 units twice daily due to NPO on admission. -Restart home insulin of 20 units twice daily now that patient is no longer NPO on 10/09. -SSI and hypoglycemic protocol. Cellulitis of the left hand -Seen in ED on 09/30 and prescribed a 7-day course of Keflex which should have ended on 10/07, prior to admission -Initially started on cefazolin at time of admission, switch back to 500 mg Keflex 4 times a day. -Patient unsure how many days of antibiotics that he took, though believes he took 5 days. [facility] and [facility] were unable to provide how many more days of antibiotics patient needs. Mechanical heart valve present - Stable CKD stage III - Stable Diet: DM2. Heart Healthy. DVT prophylaxis: Warfarin Disposition: Admit to [facility] with telemetry, discharge most likely tomorrow CODE STATUS: Full code as discussed with patient, patient does have POLST form in chart Admission and Anticipated Discharge Date Admission Date: October 08, 2022 Supervising Physician Co-Signing Physician Notes Attending attestation Pt seen and examined in concert with Dr. Hammond. In agreement with the documented findings as noted in the resident documentation with any exceptions or additions as noted here. Resting comfortably in bed, still with some pain 'on his backside' but well controlled at present/improving. On examination, S1/S2 nl RRR no MCG. CTAB. Abd NT/ND BS+ve Normocytic anemia in the setting of h/o GIB - stable Hgb at 9.6 today, GI does not recommend inpatient evaluation at present. Transition to BID PPI PO in AM, restart diet Supratherapeutic INR - transitioned down to 3.1, in range, today. Restart warfarin at 10% reduction and monitor. Else see resident documentation as noted. Subjective Patient was seen bedside this morning. States that he continues to feel fatigued. States that he has been not eating or drinking for the past couple months. States that he does not feel hungry. He states that over this time he has also had dark blackish/brown frequent stools and abdominal pain. He normal ly MiraLAX when he is feeling constipated which causes him to go to about 5-6 times a day. He states that he has not had a bowel movement since yesterday. Denies any chest pain, shortness of breath, current abdominal pain, or headache. Review of Systems Review of Systems: All systems reviewed & are unremarkable except as noted in Subjective Physical Exam Constitutional: WD/WN, vitals as above Eyes: PERRL, conjunctivae normal, anicteric sclerae Neck: normal visual inspection Respiratory: normal respiratory effort; no respiratory distress Cardiovascular: RRR, no murmur, no edema Gastrointestinal (Abdomen): normal bowel sounds, soft, nontender, no hepatosplenomegaly Musculoskeletal: Head/Neck/Chest: normocephalic and head atraumatic Skin: no rashes, warm and dry Neurologic: moves all extremities Psychiatric: Orientation: oriented to person, oriented to place and cooperative Results & Data Results & Data Vital Signs (Past 12 Hours) Vital Signs Temp Pulse Pulse Resp BP BP Pulse Ox 10/09/22 02:59 36.6 C 88 18 105/64 96 10/09/22 02:06 81 10/09/22 00:05 10/09/22 01:29 10/09/22 01:06 36.5 C 79 16 143/81 H 97 10/08/22 21:10 87 10/08/22 23:00 77 20 146/94 H 94 10/08/22 22:00 86 20 137/81 94 10/08/22 21:54 102 H 21 138/83 95 10/08/22 21:00 87 19 138/77 96 10/08/22 20:00 74 15 119/73 98 Pulse Ox O2 Del Method O2 Del Method O2 Flow Rate 10/09/22 02:59 Nasal Cannula 2 10/09/22 02:06 10/09/22 00:05 Room Air 10/09/22 01:29 97 Room Air 10/09/22 01:06 Room Air 10/08/22 21:10 10/08/22 23:00 10/08/22 22:00 Room Air 10/08/22 21:54 Room Air 10/08/22 21:00 Room Air 10/08/22 20:00 Room Air Laboratory Results 10/09/22 06:50 10/09/22 06:50 (4) CAD (coronary artery disease) Associated angina: without angina Coronary Disease-Associated Artery/Lesion type: [place] artery [place] vs. transplanted heart: [place] heart Qualified Code(s): I25.10 - Atherosclerotic heart disease of [place] coronary artery without angina pectoris (5) Rheumatoid arthritis Rheumatoid arthritis location: unspecified site Rheumatoid factor presence: unspecified presence Qualified Code(s): M06.9 - Rheumatoid arthritis, u nspecified (6) Diabetes Diabetes mellitus complication detail: with polyneuropathy Diabetes mellitus complication status: with neurologic complications Diabetes mellitus emt intermediate insulin use: with emt intermediate use Diabetes mellitus type: type 2 Qualified Code(s): E11.42 - Type 2 diabetes mellitus with diabetic polyneuropathy; 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
[2022-10-09 07:54] LABS: Hemoglobin 9.6 g/dl (14.0-18.0); Mean Corpuscular Hemoglobin 27.7 pg (25.0-34.0); Mean Corpuscular Volume 86.5 fL (80.0-100.0); Mean Platelet Volume 10.4 fL (9.4-12.4); Platelet Count 174 K/uL (130-400); RDW Coefficient of Variation 15.5 % (11.5-14.5); RDW Standard Deviation 48.5 fL (36.4-46.3); Red Blood Count 3.47 M/uL (4.70-6.10); White Blood Count 3.28 K/ul (4.8-10.8)
[2022-10-09 08:17] LABS: Albumin Globulin Ratio 1.4 (0.9-2); Albumin Level 3.1 gm/dl (3.4-5.0); BUN Creatinine Ratio 17.6 (10-20); Bilirubin,Total 0.4 mg/dl (0.2-1.0); Calcium 8.7 mg/dl (8.6-10.3); Creatinine Clr Calc Pharmacy 57.8 ml/min; Est GFR (African American) 60.4 ml/min; Est GFR (Non-African American) 52.1 ml/min; Globulin 2.2 gm/dl (2.5-4.0); Magnesium 1.8 mg/dl (1.7-2.4); Potassium 3.7 mmol/L (3.5-5.1); Total Protein 5.3 gm/dl (6.0-8.3)
[2022-10-09] MEDS: FUROSEMIDE 20 MG TAB PO SCH (08:29)
[2022-10-09] MEDS: FEXOFENADINE HCL 180 MG TAB PO SCH (08:29)
[2022-10-09] MEDS: MAGNESIUM OXIDE 400 MG TAB PO SCH (08:30)
[2022-10-09] MEDS: CARBIDOPA/LEVODOPA 25/100MG TAB PO SCH ×3 (08:30→20:57)
[2022-10-09] MEDS: FINASTERIDE 5 MG TAB PO SCH (08:30)
[2022-10-09 08:31] LABS: INR 3.1 (0.9-1.1); Partial Thromboplastin Ratio 1.6; Prothrombin Time 31.3 Seconds (9.0-12.0)
[2022-10-09] MEDS: SENNA 8.6 MG TAB PO SCH (08:31)
[2022-10-09] MEDS: UMECLIDINIUM/VILANTEROL 62.5/25MCG 7 PUFFS/INHALER INH SCH (08:31)
[2022-10-09] MEDS: FLUTICASONE FUROATE 100MCG 14 PUFFS/INHALER INH SCH (08:31)
[2022-10-09] MEDS: predniSONE 5 MG TAB PO SCH (08:31)
[2022-10-09] MEDS: GABAPENTIN 300 MG CAP PO SCH (08:35)
[2022-10-09] MEDS ORDERED: LANTUS PER UNIT CHARGE SQ SCH (09:00)
[2022-10-09 09:19] LABS: Partial Thromboplastin Time 44.6 Seconds (21.0-31.0)
--- NOTE | 2022-10-09 09:35 | Gastrointestinal Consultation ---
Date of Consultation October 09, 2022 Assessment & Plan (1) Acute GI bleedin77 year old male with history of prostate ca, seizure disorder, depression, mechanical heart valve, CKD 3A, CAD, rheumatoid arthritis, diabetes, atrial fibrillation, ambulatory dysfunction, multiple falls, parkinsonism admitted thro ugh the ED with weakness, report of BRBPR. This AM was reported a formed brown stool with BRB coating the BM. Given his chronic comorbidities, absence of acute GI bleeding, will defer elective egd/colonoscopy at this time. DDX disucssed: hemorrhhoidal, fissure vs other (?radiation proctitis if he had radiation treatment for his prostate CA) Recommend colace 100 mg BID and Miralax 1 capful as needed Trend HGB Monitor and document GI output Transfuse PRN May resume AC once IRN in acceptable range Recall as needed. Thank you for allowing us to participate in the care of this patient. Please call with any acute changes, questions or concerns. Please see addendum below with additional recommendation from my supervising physician. Supervising Physician Co-Signing Physician Notes Attending attestation I have seen, examined this patient, and agree with the findings and above by our mid-level provider DALI Ramirez, with the following additions: ? 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 Pt was seen and evaluated, chart reviewed. Nursing present at bedside who aids in history as patient was sleeping, would not awake to name. She notes BM this AM was formed, brown, with streaking of BRB on the outside of the stool. No report of black stools. No diarrhea. No previous report of black/bloody emesis. HGB 9.6 from baseline 02/07 BUN normal No gi imaging this admission Allergies Allergy/AdvReac Type Severity Reaction Status Date / Time bee venom protein (honey bee) Allergy Severe anaphylaxis Verified 10/08/22 17:58 Iodinated Contrast Media Allergy Severe Anaphylaxis Verified 10/08/22 17:58 shellfish derived Allergy Severe Anaphylaxis Verified 10/08/22 17:58 doxazosin Allergy Intermediate Rash Verified 10/08/22 17:58 tamsulosin [From Flomax] Allergy Intermediate Itching Verified 10/08/22 17:58 Tetanus Vaccines and Toxoid Allergy Unknown Unknown Verified 10/08/22 17:58 lamotrigine AdvReac Intermediate Confusion Verified 10/08/22 17:58 oxycodone [From Percocet] AdvReac Intermediate nausea/vomi Verified 10/08/22 17:58 ting propoxyphene [From Darvon] AdvReac Intermediate nausea/vomi Verified 10/08/22 17:58 ting Home Medications Medication Instructions Recorded Confirmed Type atorvastatin 40 mg tablet 40 mg PO HS 05/28/20 10/08/22 History fexofenadine 180 mg tablet 180 mg PO QAM 02/11/21 10/08/22 History (Karlee Allergy) allopurinol 100 mg tablet 100 mg PO HS 04/10/21 10/08/22 History cholecalciferol (vitamin D3) 50 4,000 unit PO HS 07/14/21 10/08/22 History mcg (2,000 unit) capsule (Vitamin D3) insulin glargine 100 unit/mL (3 20 unit subcut BID 07/26/21 10/08/22 History mL) subcutaneous pen (Lantus Solostar U-100 Insulin) acetaminophen 325 mg tablet 650 mg PO Q4H PRN pain #30 tabs 08/04/21 10/08/22 Rx aspirin 81 mg tablet,delayed 81 mg PO QAM #30 tabs 08/04/21 10/08/22 Rx release fluticasone fur. 100 mcg-umeclid 1 inh inhalation QAM #60 ea 09/06/21 10/08/22 Rx 62.5 mcg-vilant 25 mcg inhalat.powder (Trelegy Ellipta) albuterol sulfate 90 mcg/actuation 2 puff inhalation Q4H PRN 09/27/21 10/08/22 History aerosol inhaler (Ventolin HFA) Shortness Of Breath Or Wheezing polyethylene glycol 3350 17 17 g PO PM 10/04/21 10/08/22 History gram/dose oral powder (Miralax) furosemide 20 mg tablet 20 mg PO QAM 11/24/21 10/08/22 History sennosides 8.6 mg tablet (Senokot) 8.6 mg PO QAM 11/24/21 10/08/22 History insulin aspart U-100 100 unit/mL 1 sliding scale dose subcut ACHS 02/26/22 10/08/22 History (3 mL) subcutaneous pen (Novolog FlexPen U-100 Insulin aspart) diclofenac sodium 1 % topical gel 2 g topical DAILY 05/21/22 10/08/22 History (Voltaren Arthritis Pain) ferrous sulfate 325 mg (65 mg 325 mg PO QAM #30 tabs 05/26/22 10/08/22 Rx iron) tablet,delayed release levetiracetam 500 mg tablet 1,000 mg PO BID #360 tabs 08/03/22 10/08/22 Rx (Keppra) cyanocobalamin (vitamin B-12) 1,000 mcg PO QAM 08/14/22 10/08/22 History 1,000 mcg tablet,extended release (Vitamin B-12 ER) gabapentin 300 mg capsule 600 mg PO QAM 08/14/22 10/08/22 History magnesium 250 mg tablet 250 mg PO QAM 08/14/22 10/08/22 History pantoprazole 20 mg tablet,delayed 20 mg PO QAM 08/14/22 10/08/22 History release (Protonix) potassium chloride 20 mEq 20 meq PO HS 08/14/22 10/08/22 History tablet,extended release prednisone 5 mg tablet 5 mg PO QAM 08/14/22 10/08/22 History carbidopa 25 mg-levodopa 100 mg 1 tab PO TID 08/23/22 10/08/22 History tablet (Sinemet) finasteride 5 mg tablet (Proscar) 5 mg PO QAM 08/23/22 10/08/22 History ondansetron 4 mg disintegrating 4 mg PO Q6H PRN nausea and 08/24/22 10/08/22 Rx tablet vomiting #30 tabs oxycodone 5 mg tablet 5 mg PO DAILY PRN pain #20 tabs 08/24/22 10/08/22 Rx tramadol 50 mg tablet 50 mg PO Q6H PRN pain, moderate 08/24/22 10/08/22 Rx #30 tabs calcium polycarbophil 625 mg 625 mg PO QAM #30 tabs 09/14/22 10/08/22 Rx tablet (Fiber (calcium polycarbophil)) gabapentin 300 mg capsule 300 mg PO HS 09/30/22 10/08/22 History lactulose 20 gram/30 mL oral 20 g PO PM 09/30/22 10/08/22 History solution sodium chloride 0.65 % nasal spray 2 spray intranasal QID PRN DRYNESS 09/30/22 10/08/22 History aerosol (Saline Mist) topiramate 100 mg tablet 100 mg PO BID 09/30/22 10/08/22 History warfarin 7.5 mg tablet 7.5 mg PO DIRECTED 10/08/22 10/08/22 History Patient History Medical History Anemia history of blood transfusion, 2020 Anxiety Aortic ectasia, thoracic Aspiration pneumonia hx of--per pt was due to pain medications Asthma inhaler daily and prn CAD (coronary artery disease) follows with Dr. Chau Chronic dyspnea Chronic kidney disease, stage 3a Chronic pulmonary aspiration Chronic respiratory failure with hypoxia Chronic use of steroids Constipated Current use of custodial anticoagulation warfarin daily Depression Diabetes IDDM Diabetic peripheral neuropathy Dysphagia Edema Generalized weakness Gout Hearing deficit Heart failure > 70% History of seizures last 2019--on Keppra/Topiramate--follows with Dr. Sheikh HLD (hyperlipidemia) Hypokalemia Idiopathic polyneuropathy Interstitial lung disease due to connective tissue disease inhaler daily and prn and uses 2L N/C at hs Migraine Neck pain Neurogenic claudication due to lumbar spinal stenosis On home oxygen therapy 2L at hs Pancytopenia Parkinsonism per pt has a difficulty swallowing, states certain foods can be difficult to eat Pneumonia hx of, per pt last admission @ [facility] was 05/2022 Polymyositis Prostate cancer radiation Rheumatoid arthritis Shortness of breath per pt on with exertion Somatic dysfunction of cervical region Stroke-like symptom 12/2019, w/ blurry vision and dysarthria. mild R sided wkness. attending outpatient physical therapy w/ good improvement in strength (5+/5 strength of all 4 extremities as of 05/28/20) Supratherapeutic INR Thoracic ascending aortic aneurysm s/p repair TIA (transient ischemic attack) 2019--no deficits--follows with Dr. Sheikh Surgical History H/O hernia repair History of aortic valve replacement 2003 @ [facility] in [place], [place] History of appendectomy History of bilateral cataract extraction History of cardiac cath x3--2018 @ [facility] with 1 stent placed/2019 @ [facility]/last 04/2021 @ [facility] History of cholecystectomy History of colonoscopy History of esophagogastroduodenoscopy (EGD) History of fusion of cervical spine normal ROM History of gastric bypass 2007--lap band History of heart artery stent x1--2018 @ [facility] History of lumbar spinal fusion History of lung biopsy 2019 History of partial nephrectomy 1986 on right kidney History of prostate biopsy malignant History of tonsillectomy History of tooth extraction all upper teeth removed Family History Mother , age 87 of pulmonary issues Rheumatoid arthritis Father , in his mid 80s of a stroke Stroke Other Coronary heart disease No family history of adverse response to anesthesia Social History Smoking Status: Never smoker Second Hand Exposure: No; Do You Dip or Chew Tobacco: No; Hx Alcohol Use: No Hx Substance Use: No Preferred Language: Greenlandic Communication Ability: Effective Hearing Ability: Hard of Hearing Network Internship Required: No Beliefs That Will Affect Care: None marital status: / Current Living Situation: Personal Care Facility Current Living Situation Comment: [facility] current occupational status: retired 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 How many Children do You have: 2 How many Children do You have Comment: son Other Information That Helps Us Care for You: No Feels Safe at Home: Yes Safety Concerns: Feels Safe At This Time Assistive Devices: Glasses, Hearing Aid - Bilateral, Oxygen - at Night and Walker Review of Systems Review of Systems: Unobtainable due to cognitive status Physical Exam Constitutional: WD/WN, vitals as above Respiratory: normal respiratory effort, lungs clear to auscultation Cardiovascular: Rate/Rhythm: regular rate and regular rhythm Gastrointestinal (Abdomen): normal bowel sounds, soft, nontender, no hepatosplenomegaly Skin: no rashes, warm and dry Results & Data Vital Signs (Past 12 Hours) Vital Signs Temp Pulse Pulse Resp BP BP Pulse Ox 10/09/22 08:00 83 10/09/22 08:22 36.4 C L 82 18 118/80 95 10/09/22 02:59 36.6 C 88 18 105/64 96 10/09/22 02:06 81 10/09/22 00:05 10/09/22 01:29 10/09/22 01:06 36.5 C 79 16 143/81 H 97 10/08/22 23:00 77 20 146/94 H 94 10/08/22 22:00 86 20 137/81 94 10/08/22 21:54 102 H 21 138/83 95 Pulse Ox O2 Del Method O2 Del Method O2 Flow Rate 10/09/22 08:00 10/09/22 08:22 Room Air 10/09/22 02:59 Nasal Cannula 2 10/09/22 02:06 10/09/22 00:05 Room Air 10/09/22 01:29 97 Room Air 10/09/22 01:06 Room Air 10/08/22 23:00 10/08/22 22:00 Room Air 10/08/22 21:54 Room Air Laboratory Results 10/09/22 10/09/22 10/09/22 Range/Units 06:50 06:50 06:50 WBC 3.28 L (4.8-10.8) K/ul RBC 3.47 L (4.70-6.10) M/uL Hgb 9.6 L (14.0-18.0) g/dl Hct 30.0 L (42.0-52.0) % MCV 86.5 (80.0-100.0) fL MCH 27.7 (25.0-34.0) pg MCHC 32.0 (32.0-36.0) g/dL RDW Std Deviation 48.5 H (36.4-46.3) fL RDW Coeff of Lianne 15.5 H (11.5-14.5) % Plt Count 174 (130-400) K/uL MPV 10.4 (9.4-12.4) fL Immature Gran % (Auto) % Neut % (Auto) % Lymph % (Auto) % [place] % (Auto) % Eos % (Auto) % Baso % (Auto) % Neut # (Auto) (1.40-6.50) K/uL Lymph # (Auto) (1.2-3.4) K/uL [place] # (Auto) (0.11-0.59) K/uL Eos # (Auto) (0-0.50) K/uL Baso # (Auto) (0-0.2) K/uL Immature Gran # (Auto) (0.01-0.20) K/uL PT 31.3 H (9.0-12.0) Seconds INR 3.1 H (0.9-1.1) APTT 44.6 H* (21.0-31.0) Seconds PTT Ratio 1.6 Sodium 140 (136-145) mmol/L Potassium 3.7 (3.5-5.1) mmol/L Chloride 112 H (98-107) mmol/L Carbon Dioxide 23 (21-32) mmol/L Anion Gap 5 (3-11) BUN 23 (6-23) mg/dl Creatinine 1.31 (0.6-1.4) mg/dl Est Cr Clr Drug Dosing 57.8 ml/min Est GFR ( Amer) 60.4 ml/min Est GFR (Non-Af Amer) 52.1 ml/min BUN/Creatinine Ratio 17.6 (10-20) Glucose 166 H (70-99(Fasting)) mg/dl POC Glucose (70-99) mg/dl Lactate (0.4-2.0) mmol/L Calcium 8.7 (8.6-10.3) mg/dl Magnesium 1.8 (1.7-2.4) mg/dl Total Bilirubin 0.4 (0.2-1.0) mg/dl AST 17 (13-39) U/L ALT 14 (7-52) U/L Alkaline Phosphatase 52 (34-104) U/L Troponin I High Sens (0-20) pg/ml Total Protein 5.3 L (6.0-8.3) gm/dl Albumin 3.1 L (3.4-5.0) gm/dl Globulin 2.2 L (2.5-4.0) gm/dl Albumin/Globulin Ratio 1.4 (0.9-2) TSH (0.300-4.500) uIu/ml Prolactin ng/ml Urine Color Urine Appearance (Clear) Urine pH (4.5-7.5) Ur Specific [place] (1.000-1.030) Urine Protein (Negative) Urine Glucose (UA) (Negative) Urine Ketones (Negative) Urine Blood (Negative) Urine Nitrite (Negative) Urine Bilirubin (Negative) Urine Urobilinogen (Negative) Ur Leukocyte Esterase (Negative) Stool Occult Bld Scrn (Negative) Levetiracetam SARS-CoV-2, RNA, NAAT (NEGATIVE) Blood Type Antibody Screen Crossmatch 10/09/22 10/09/22 10/08/22 Range/Units 05:34 02:20 20:12 WBC (4.8-10.8) K/ul RBC (4.70-6.10) M/uL Hgb (14.0-18.0) g/dl Hct (42.0-52.0) % MCV (80.0-100.0) fL MCH (25.0-34.0) pg MCHC (32.0-36.0) g/dL RDW Std Deviation (36.4-46.3) fL RDW Coeff of Lianne (11.5-14.5) % Plt Count (130-400) K/uL MPV (9.4-12.4) fL Immature Gran % (Auto) % Neut % (Auto) % Lymph % (Auto) % [place] % (Auto) % Eos % (Auto) % Baso % (Auto) % Neut # (Auto) (1.40-6.50) K/uL Lymph # (Auto) (1.2-3.4) K/uL [place] # (Auto) (0.11-0.59) K/uL Eos # (Auto) (0-0.50) K/uL Baso # (Auto) (0-0.2) K/uL Immature Gran # (Auto) (0.01-0.20) K/uL PT (9.0-12.0) Seconds INR (0.9-1.1) APTT (21.0-31.0) Seconds PTT Ratio Sodium (136-145) mmol/L Potassium (3.5-5.1) mmol/L Chloride (98-107) mmol/L Carbon Dioxide (21-32) mmol/L Anion Gap (3-11) BUN (6-23) mg/dl Creatinine (0.6-1.4) mg/dl Est Cr Clr Drug Dosing ml/min Est GFR ( Amer) ml/min Est GFR (Non-Af Amer) ml/min BUN/Creatinine Ratio (10-20) Glucose (70-99(Fasting)) mg/dl POC Glucose 179 H (70-99) mg/dl Lactate (0.4-2.0) mmol/L Calcium (8.6-10.3) mg/dl Magnesium (1.7-2.4) mg/dl Total Bilirubin (0.2-1.0) mg/dl AST (13-39) U/L ALT (7-52) U/L Alkaline Phosphatase (34-104) U/L Troponin I High Sens (0-20) pg/ml Total Protein (6.0-8.3) gm/dl Albumin (3.4-5.0) gm/dl Globulin (2.5-4.0) gm/dl Albumin/Globulin Ratio (0.9-2) TSH (0.300-4.500) uIu/ml Prolactin ng/ml Urine Color Yellow Urine Appearance Clear (Clear) Urine pH 6.5 (4.5-7.5) Ur Specific [place] 1.019 (1.000-1.030) Urine Protein Negative (Negative) Urine Glucose (UA) Negative (Negative) Urine Ketones Negative (Negative) Urine Blood Negative (Negative) Urine Nitrite Negative (Negative) Urine Bilirubin Negative (Negative) Urine Urobilinogen Negative (Negative) Ur Leukocyte Esterase Negative (Negative) Stool Occult Bld Scrn Positive A (Negative) Levetiracetam SARS-CoV-2, RNA, NAAT (NEGATIVE) Blood Type Antibody Screen Crossmatch 10/08/22 10/08/22 10/08/22 Range/Units 19:35 17:45 17:43 WBC (4.8-10.8) K/ul RBC (4.70-6.10) M/uL Hgb (14.0-18.0) g/dl Hct (42.0-52.0) % MCV (80.0-100.0) fL MCH (25.0-34.0) pg MCHC (32.0-36.0) g/dL RDW Std Deviation (36.4-46.3) fL RDW Coeff of Lianne (11.5-14.5) % Plt Count (130-400) K/uL MPV (9.4-12.4) fL Immature Gran % (Auto) % Neut % (Auto) % Lymph % (Auto) % [place] % (Auto) % Eos % (Auto) % Baso % (Auto) % Neut # (Auto) (1.40-6.50) K/uL Lymph # (Auto) (1.2-3.4) K/uL [place] # (Auto) (0.11-0.59) K/uL Eos # (Auto) (0-0.50) K/uL Baso # (Auto) (0-0.2) K/uL Immature Gran # (Auto) (0.01-0.20) K/uL PT (9.0-12.0) Seconds INR (0.9-1.1) APTT (21.0-31.0) Seconds PTT Ratio Sodium (136-145) mmol/L Potassium (3.5-5.1) mmol/L Chloride (98-107) mmol/L Carbon Dioxide (21-32) mmol/L Anion Gap (3-11) BUN (6-23) mg/dl Creatinine (0.6-1.4) mg/dl Est Cr Clr Drug Dosing ml/min Est GFR ( Amer) ml/min Est GFR (Non-Af Amer) ml/min BUN/Creatinine Ratio (10-20) Glucose (70-99(Fasting)) mg/dl POC Glucose (70-99) mg/dl Lactate (0.4-2.0) mmol/L Calcium (8.6-10.3) mg/dl Magnesium (1.7-2.4) mg/dl Total Bilirubin (0.2-1.0) mg/dl AST (13-39) U/L ALT (7-52) U/L Alkaline Phosphatase (34-104) U/L Troponin I High Sens (0-20) pg/ml Total Protein (6.0-8.3) gm/dl Albumin (3.4-5.0) gm/dl Globulin (2.5-4.0) gm/dl Albumin/Globulin Ratio (0.9-2) TSH (0.300-4.500) uIu/ml Prolactin 10.92 ng/ml Urine Color Urine Appearance (Clear) Urine pH (4.5-7.5) Ur Specific [place] (1.000-1.030) Urine Protein (Negative) Urine Glucose (UA) (Negative) Urine Ketones (Negative) Urine Blood (Negative) Urine Nitrite (Negative) Urine Bilirubin (Negative) Urine Urobilinogen (Negative) Ur Leukocyte Esterase (Negative) Stool Occult Bld Scrn (Negative) Levetiracetam SARS-CoV-2, RNA, NAAT NEGATIVE (NEGATIVE) Blood Type O Positive Antibody Screen NEGATIVE Crossmatch See Detail 10/08/22 10/08/22 10/08/22 Range/Units 17:35 17:35 17:35 WBC (4.8-10.8) K/ul RBC (4.70-6.10) M/uL Hgb (14.0-18.0) g/dl Hct (42.0-52.0) % MCV (80.0-100.0) fL MCH (25.0-34.0) pg MCHC (32.0-36.0) g/dL RDW Std Deviation (36.4-46.3) fL RDW Coeff of Lianne (11.5-14.5) % Plt Count (130-400) K/uL MPV (9.4-12.4) fL Immature Gran % (Auto) % Neut % (Auto) % Lymph % (Auto) % [place] % (Auto) % Eos % (Auto) % Baso % (Auto) % Neut # (Auto) (1.40-6.50) K/uL Lymph # (Auto) (1.2-3.4) K/uL [place] # (Auto) (0.11-0.59) K/uL Eos # (Auto) (0-0.50) K/uL Baso # (Auto) (0-0.2) K/uL Immature Gran # (Auto) (0.01-0.20) K/uL PT 40.3 H (9.0-12.0) Seconds INR 4.0 H (0.9-1.1) APTT 47.2 H* (21.0-31.0) Seconds PTT Ratio 1.7 Sodium (136-145) mmol/L Potassium (3.5-5.1) mmol/L Chloride (98-107) mmol/L Carbon Dioxide (21-32) mmol/L Anion Gap (3-11) BUN (6-23) mg/dl Creatinine (0.6-1.4) mg/dl Est Cr Clr Drug Dosing ml/min Est GFR ( Amer) ml/min Est GFR (Non-Af Amer) ml/min BUN/Creatinine Ratio (10-20) Glucose (70-99(Fasting)) mg/dl POC Glucose (70-99) mg/dl Lactate (0.4-2.0) mmol/L Calcium (8.6-10.3) mg/dl Magnesium (1.7-2.4) mg/dl Total Bilirubin (0.2-1.0) mg/dl AST (13-39) U/L ALT (7-52) U/L Alkaline Phosphatase (34-104) U/L Troponin I High Sens (0-20) pg/ml Total Protein (6.0-8.3) gm/dl Albumin (3.4-5.0) gm/dl Globulin (2.5-4.0) gm/dl Albumin/Globulin Ratio (0.9-2) TSH 1.875 (0.300-4.500) uIu/ml Prolactin ng/ml Urine Color Urine Appearance (Clear) Urine pH (4.5-7.5) Ur Specific [place] (1.000-1.030) Urine Protein (Negative) Urine Glucose (UA) (Negative) Urine Ketones (Negative) Urine Blood (Negative) Urine Nitrite (Negative) Urine Bilirubin (Negative) Urine Urobilinogen (Negative) Ur Leukocyte Esterase (Negative) Stool Occult Bld Scrn (Negative) Levetiracetam Pending SARS-CoV-2, RNA, NAAT (NEGATIVE) Blood Type Antibody Screen Crossmatch 10/08/22 10/08/22 10/08/22 Range/Units 17:35 17:35 17:33 WBC 3.55 L (4.8-10.8) K/ul RBC 3.47 L (4.70-6.10) M/uL Hgb 9.8 L (14.0-18.0) g/dl Hct 30.2 L (42.0-52.0) % MCV 87.0 (80.0-100.0) fL MCH 28.2 (25.0-34.0) pg MCHC 32.5 (32.0-36.0) g/dL RDW Std Deviation 49.2 H (36.4-46.3) fL RDW Coeff of Lianne 15.6 H (11.5-14.5) % Plt Count 172 (130-400) K/uL MPV 10.1 (9.4-12.4) fL Immature Gran % (Auto) 0.8 % Neut % (Auto) 51.3 % Lymph % (Auto) 29.0 % [place] % (Auto) 7.9 % Eos % (Auto) 9.9 % Baso % (Auto) 1.1 % Neut # (Auto) 1.82 (1.40-6.50) K/uL Lymph # (Auto) 1.03 L (1.2-3.4) K/uL [place] # (Auto) 0.28 (0.11-0.59) K/uL Eos # (Auto) 0.35 (0-0.50) K/uL Baso # (Auto) 0.04 (0-0.2) K/uL Immature Gran # (Auto) 0.03 (0.01-0.20) K/uL PT (9.0-12.0) Seconds INR (0.9-1.1) APTT (21.0-31.0) Seconds PTT Ratio Sodium 137 (136-145) mmol/L Potassium 3.7 (3.5-5.1) mmol/L Chloride 109 H (98-107) mmol/L Carbon Dioxide 23 (21-32) mmol/L Anion Gap 5 (3-11) BUN 28 H (6-23) mg/dl Creatinine 1.42 H (0.6-1.4) mg/dl Est Cr Clr Drug Dosing 54.2 ml/min Est GFR ( Amer) 54.8 ml/min Est GFR (Non-Af Amer) 47.3 ml/min BUN/Creatinine Ratio 19.7 (10-20) Glucose 179 H (70-99(Fasting)) mg/dl POC Glucose (70-99) mg/dl Lactate 1.3 (0.4-2.0) mmol/L Calcium 8.9 (8.6-10.3) mg/dl Magnesium 1.8 (1.7-2.4) mg/dl Total Bilirubin 0.4 (0.2-1.0) mg/dl AST 20 (13-39) U/L ALT 15 (7-52) U/L Alkaline Phosphatase 60 (34-104) U/L Troponin I High Sens 7.9 (0-20) pg/ml Total Protein 5.5 L (6.0-8.3) gm/dl Albumin 3.3 L (3.4-5.0) gm/dl Globulin 2.2 L (2.5-4.0) gm/dl Albumin/Globulin Ratio 1.5 (0.9-2) TSH (0.300-4.500) uIu/ml Prolactin ng/ml Urine Color Urine Appearance (Clear) Urine pH (4.5-7.5) Ur Specific [place] (1.000-1.030) Urine Protein (Negative) Urine Glucose (UA) (Negative) Urine Ketones (Negative) Urine Blood (Negative) Urine Nitrite (Negative) Urine Bilirubin (Negative) Urine Urobilinogen (Negative) Ur Leukocyte Esterase (Negative) Stool Occult Bld Scrn (Negative) Levetiracetam SARS-CoV-2, RNA, NAAT (NEGATIVE) Blood Type Antibody Screen Crossmatch
[2022-10-09] MEDS ORDERED: WARFARIN SOD 5 MG TAB PO SCH (16:00)
--- NOTE | 2022-10-09 16:38 | Electrocardiogram Report ---
Test Reason : Blood Pressure : / mmHG Vent. Rate : 065 BPM Atrial Rate : 065 BPM P-R Int : 134 ms QRS Dur : 088 ms QT Int : 440 ms P-R-T Axes : 001 000 071 degrees QTc Int : 457 ms Normal sinus rhythm Poor R wave progression, consider anterior [place] vs. lead placement vs. LVH Abnormal ECG When compared with ECG of 09-SEP-2022 12:16, ST no longer depressed in Lateral leads Confirmed by Cody Soto ([id number]) on 10/09/2022 4:37:44 PM Referred By: [facility] Confirmed By:Wyatt Soto
[2022-10-09] MEDS: cephALEXin 500 MG CAP PO SCH ×2 (17:13→20:56)
[2022-10-09] MEDS: LANTUS PER UNIT CHARGE SQ SCH (20:50)
[2022-10-09] MEDS ORDERED: CHOLECALCIFEROL 1,000 UNITS 25 MCG TAB PO SCH (21:00)
[2022-10-09] MEDS ORDERED: POTASSIUM CHLORIDE CRTAB 20 MEQ TABCR PO SCH (21:00)
[2022-10-09] MEDS ORDERED: ATORVASTATIN 40 MG TAB PO SCH (21:00)
[2022-10-09] MEDS ORDERED: allopurinoL 100 MG TAB PO SCH (21:00)
[2022-10-09] MEDS ORDERED: POLYETHYLENE (MIRALAX) 17 GM PACK PO SCH (21:00)
[2022-10-09] MEDS ORDERED: GABAPENTIN 300 MG CAP PO SCH (21:00)
[2022-10-09] MEDS ORDERED: LACTULOSE SYRUP 20 GM/30 ML UDC PO SCH (21:00)
[2022-10-10] MEDS: FERROUS SULFATE 325 MG TAB PO SCH (06:21)
--- NOTE | 2022-10-10 07:10 | Discharge Summary ---
Date of Service October 10, 2022 Admission HPI Per Admitting Provider Patient is a 77-year-old male with past medical history of seizure disorder, depression, mechanical heart valve, CKD 3A, CAD, rheumatoid arthritis, diabetes, atrial fibrillation, ambulatory dysfunction, multiple falls, parkinsonism, and history of prostate cancer who presented to the ED today for increasing weakness and fatigue with possible seizure activity. History is somewhat limited at this time as patient is quite lethargic and only minimally answers questions. Sometimes the questions I ask I am not receiving an appropriate response and will go off about other things that have nothing to do with the question. HPI mostly from ED provider note and some answers from patient albeit not sure of their accuracy. Was able to of him that he has had bloody stools for months, however, over the past few days there has been more blood present in the stools. ED provider reports that his stool was Hemoccult positive. He is unsure if he took his medications this evening. Otherwise no other meaningful HPI noted at this time. ED Course: Patient was seen by one of our ED providers. One of these seizure- like episodes occurred while in the ED, however, ED provider informs me that he was able to adjust his glasses to make them crooked and during the event the patient straighten them back out. Additionally, the provider gave a sternal rub and again while this event was happening, the patient was able to take his hand and push away the ED providers hand. This makes it unlikely that these are seizures and the patient did not have a postictal state it was able to talk after 1 of these events. Labs were significant for a negative white blood cell count of 3.55, hemoglobin of 9.8 which is lower than baseline. It is dropped from 11 since his last ED visit on 09/30/2022. INR of 4.0, APTT of 47.2, creat inine of 1.42, glucose of 179, and negative urinalysis. Chest x-ray and head CT both negative for acute process. The hospitalist service was then consulted for evaluation for active GI bleed. Admission Exam Per Admitting Provider Constitutional:WD/WN, vitals as aboveEyes:+ anicteric scleraeNeck:normal visual inspectionRespiratory:normal respiratory effort; no respiratory distressCardiovascular:Rate/Rhythm: regular rate and regular rhythm Extremities: + edema (trace)Gastrointestinal (Abdomen):normal bowel sounds, soft, nontender, no hepatosplenomegalyMusculoskeletal:Head/Neck/Chest: normocephalic and head atraumaticSkin:no rashes, warm and dryNeurologic: moves all extremitiesPsychiatric:Orientation: oriented to person, oriented to place and cooperative Affect: + flat affect Principal Diagnosis GI bleed rule out Discharge Exam Constitutional WD/WN, vitals as above Eyes PERRL, conjunctivae normal, anicteric sclerae Neck normal visual inspection Respiratory normal respiratory effort; no respiratory distress Cardiovascular RRR, no murmur, no edema Rate/Rhythm: regular rate and regular rhythm Gastrointestinal (Abdomen) normal bowel sounds, soft, nontender, no hepatosplenomegaly Musculoskeletal Head/Neck/Chest: normocephalic and head atraumatic Skin no rashes, warm and dry Neurologic moves all extremities Psychiatric Orientation: oriented to person, oriented to place and cooperative Discharge Data Allergies Allergy/AdvReac Type Severity Reaction Status Date / Time bee venom protein (honey bee) Allergy Severe anaphylaxis Verified 10/08/22 17:58 Iodinated Contrast Media Allergy Severe Anaphylaxis Verified 10/08/22 17:58 shellfish derived Allergy Severe Anaphylaxis Verified 10/08/22 17:58 doxazosin Allergy Intermediate Rash Verified 10/08/22 17:58 tamsulosin [From Flomax] Allergy Intermediate Itching Verified 10/08/22 17:58 Tetanus Vaccines and Toxoid Allergy Unknown Unknown Verified 10/08/22 17:58 lamotrigine AdvReac Intermediate Confusion Verified 10/08/22 17:58 oxycodone [From Percocet] AdvReac Intermediate nausea/vomi Verified 10/08/22 17:58 ting propoxyphene [From Darvon] AdvReac Intermediate nausea/vomi Verified 10/08/22 17:58 ting Consultations 10/08/22 19:31 ED Decision to Admit Stat 10/09/22 00:02 Consult Gastroenterology Routine Procedures Performed Chest X-Ray 10/08/22 17:33 XR chest 1V portable CLINICAL HISTORY: weakness TECHNIQUE: Single frontal radiograph of the chest was obtained. Comparison: Comparison is made to chest radiograph 07/03/2022 FINDINGS: Median sternotomy wires are unchanged. Cardiomegaly is noted. The lungs are clear. No evidence of pleural effusion or pneumothorax. IMPRESSION: No acute chest disease. ACT 112: Negative or not required by law. Electronically signed by: Russell Sifuentes M.D. 10/08/2022 6:[address] 10/08/22 17:33 CT head/brain wo con CLINICAL HISTORY: weakness Technique: Contiguous axial CT images of the head were acquired from the base of the skull to the vertex without intravenous contrast administration. Images were viewed in brain, subdural and bone windows. Automated dose lowering techniques and/or adjustment according to patient size were utilized for this exam. Comparison: Comparison is made to CT head 09/10/20192019 Findings: Areas of decreased attenuation are present in the periventricular and subcortical white matter bilaterally consistent with small vessel ischemic disease. Generalized cerebral atrophy with commensurate enlargement of the ventricles, sulci, and cisterns is also present. There is no acute intracranial hemorrhage or evidence of acute territorial infarction. No shift of the midline structures, mass effect, or extra-axial abnormalities are shown. Atherosclerotic calcifications are present in the intracranial segments of the i nternal carotid arteries. Imaged portions of the paranasal sinuses and mastoid air cells are clear. The orbits appear normal. There are no acute fractures of the calvaria or scalp swelling. Impression: No acute intracranial hemorrhage, no evidence of acute territorial infarction or other acute intracranial disease process. ACT 112: Negative or not required by law. Electronically signed by: Russell Sifuentes M.D. 10/08/2022 6:54 PM Ordered Studies Abnormal lab results 10/09/22 10/09/22 10/10/22 Range/Units 16:25 20:16 07:00 WBC 3.17 L (4.8-10.8) K/ul RBC 3.53 L (4.70-6.10) M/uL Hgb 10.1 L (14.0-18.0) g/dl Hct 30.7 L (42.0-52.0) % RDW Std Deviation 49.6 H (36.4-46.3) fL RDW Coeff of Lianne 15.6 H (11.5-14.5) % Lymph # (Auto) 1.08 L (1.2-3.4) K/uL PT (9.0-12.0) Seconds INR (0.9-1.1) APTT (21.0-31.0) Seconds POC Glucose 229 H 209 H (70-99) mg/dl 10/10/22 10/10/22 Range/Units 07:00 07:30 WBC (4.8-10.8) K/ul RBC (4.70-6.10) M/uL Hgb (14.0-18.0) g/dl Hct (42.0-52.0) % RDW Std Deviation (36.4-46.3) fL RDW Coeff of Lianne (11.5-14.5) % Lymph # (Auto) (1.2-3.4) K/uL PT 25.5 H (9.0-12.0) Seconds INR 2.5 H (0.9-1.1) APTT 39.7 H (21.0-31.0) Seconds POC Glucose 167 H (70-99) mg/dl Hospital Course (1) GI bleed: (2) Seizure disorder: (3) Supratherapeutic INR: (4) CAD (coronary artery disease): (5) Rheumatoid arthritis: (6) Diabetes: (7) Cellulitis of left hand: (8) Mechanical heart valve present: (9) Chronic kidney disease, stage 3a: Plan Patient is a 77-year-old male with past medical history of seizure disorder, depression, mechanical heart valve, CKD 3A, CAD, rheumatoid arthritis, diabetes, atrial fibrillation, ambulatory dysfunction, multiple falls, parkinsonism, and history of prostate cancer who presented to the ED today for increasing weakness and fatigue with possible seizure activity. Patient has been experiencing progressively worsening weakness and has been noticing maroon stools suggestive of a GI bleed. GI bleed- resolved -Based off of previous admission notes, patient does seem to have difficulty with on and off constipation with episodes of diarrhea as well -Hemoglobin of 9.8 on admission, Hemoccult positive, 10.1 at time of discharge. -GI consulted: - No inpatient intervention needed at this time. - Recommend Colace 100 mg twice daily and MiraLAX as needed. Seizure disorder -Multiple neurology consults in the past and negative EEGs -Previous admission consultation note from neurology states that it is not felt that the patient has epilepsy -However, given frequent nonepileptic seizures, continue Keppra and topiramate per neurology -No as needed Ativan ordered at this time. Supratherapeutic INR -Held warfarin as above in setting of GI bleed and supratherapeutic INR at time of admission. -INR of 4.0 on 10/08, improved to 3.1 on 10/09. -Restarted warfarin on 10/09 at 7 mg rather than 7.5 mg that patient was on previously. -Should take 7 mg 5 times a week on Sunday, Sunday, Sunday, Sunday, and Sunday. Take 5 mg 2 times a week on Sunday and . Continue to monitor INR at home. -Given A-fib with valve replacement, goal is 2.5-3.5 for INR. -She will follow-up with PCP in 1 week Cellulitis of the left hand -Seen in ED on 09/30 and prescribed a 7-day course of Keflex which should have ended on 10/07, prior to admission -Initially started on cefazolin at time of admission, switch back to 500 mg Keflex 4 times a day. -Patient unsure how many days of antibiotics that he took, though believes he took 5 days. [facility] and [facility] were unable to provide how many more days of antibiotics patient needs. -Patient should continue Keflex at home that was recently prescribed until all pills are gone. Mechanical heart valve present - Stable CKD stage III - Stable Total Time Total Time Spent Total Time Spent (In Minutes): I spent 25 minutes seeing the patient, reviewing data, and documenting. Discharge Plan Discharge Items Patient Disposition: Home - Self-Care Reason For Visit: SEIZURE-LIKE ACTIVITY Discharge Diagnosis: GI bleed, seizure-like activity Activity: Resume your previous activity Non-emergency contact: Primary Care Provider Call non-emergency contact if: you have any medication questions, your temperature is above 101.5 and your wound has increased redness Follow-up/Referrals: Josemanuel Melo MD [Primary Care Provider] - Tan Hammond DO [Resident] - (1 week hospital f/u ) Diet: Carb Consistent or DM2 and Heart Healthy Addtl Attending Provider Instructions: You were admitted to the hospital for gastroenterology bleed rule out. A discharge summary will be sent to your primary care physician to ensure continuity of care. Please bring this discharge summary with you to your next office appointment so that your provider can review it at that time. Follow-up appointments: * We have requested a follow-up appointment with your primary care physician (Dr. Hammond) within one week of discharge. Please call the office if you do not hear from them. Their phone number is [phone]. * Keep all your follow-up appointments as already scheduled. If you cannot make an appointment, notify your provider. Medications: Your medication list has been reviewed and reconciled upon discharge to ensure accuracy and continuity of care. An updated list of all your medications is included with your hospital discharge paperwork. Please review this list closely, and make note of any changes. * We adjusted your warfarin dosing and sent a refill to your pharmacy. You should take 7 mg warfarin once a day on Sunday, Sunday, Sunday, Sunday, and Sunday. Continue to take 5 mg warfarin once a day on Sunday and . Continue to monitor INR at home with a goal of 2.53.5. * Continue to finish out course of home Keflex until you finish all the pills * If you have any issues filling these prescriptions, please call [phone] and ask to leave a message for Dr. Hammond. * Take your medications as instructed; do not skip a dose of your medicines. Make sure all of your doctors know every medicine you are taking (including [id number] medicines, vitamins, and supplements). Call your primary care provider before taking any new medicines (including over- the-counter medicines, vitamins, and supplements), because some of these may interact with your current medications, or may make your symptoms worse. Tell your primary care provider if you cannot afford your medications. CONTACT YOUR PRIMARY CARE PROVIDER if you experience any of the following: * Worsening of symptoms * Fever, chills, or fatigue * Difficulty following your treatment plan, or difficulty taking medications CALL 911 OR GO TO THE EMERGENCY DEPARTMENT if you experience any of the following: * Sudden, severe abdominal pain or nausea/vomiting * Severe chest pain, or chest pain that radiates (moves) to your jaw or arm * Sudden, severe shortness of breath or difficulty breathing Thank you for allowing us to participate in your care. Pending Studies at Discharge: No Stand-Alone Forms: [facility] Medications and DC Order Prescriptions: New warfarin 5 mg tablet 5 mg PO DAILY Qty: 30 1RF Rx Instructions: Take 7mg once a day for 5 days a week (Sunday, Sunday, Sunday, Sunday, Sunday) Take 5 mg once a day for 2 days a week (Sunday, ) warfarin 2 mg tablet 2 mg PO .per instructions Qty: 20 1RF Rx Instructions: Take 7mg once a day for 5 days a week (Sunday, Sunday, Sunday, Sunday, Sunday) Take 5 mg once a day for 2 days a week (Sunday, ) Continued Trelegy Ellipta 100-62.5-25 mcg blister with device 1 inh inhalation QAM Qty: 60 5RF levetiracetam [Keppra] 500 mg tablet 1,000 mg PO BID Qty: 360 3RF cholecalciferol (vitamin D3) [Vitamin D3] 50 mcg (2,000 unit) capsule 4,000 unit PO HS atorvastatin 40 mg tablet 40 mg PO HS fexofenadine [Karlee Allergy] 180 mg Tablet 180 mg PO QAM acetaminophen 325 mg Tablet 650 mg PO Q4H PRN (Reason: pain) Qty: 30 0RF Rx Instructions: OTC aspirin 81 mg Tablet,Delayed Release (Dr/Ec) 81 mg PO QAM Qty: 30 0RF Rx Instructions: OTC albuterol sulfate [Ventolin HFA] 90 mcg/actuation HFA aerosol inhaler 2 puff INHALATION Q4H PRN (Reason: Shortness Of Breath Or Wheezing) diclofenac sodium [Voltaren Arthritis Pain] 1 % Gel 2 g TOPICAL DAILY Rx Instructions: left knee ferrous sulfate 325 mg (65 mg iron) Tablet,Delayed Release (Dr/Ec) 325 mg PO QAM Qty: 30 0RF prednisone 5 mg Tablet 5 mg PO QAM gabapentin 300 mg capsule 600 mg PO QAM Rx Instructions: 600mg in am/300mg in pm pantoprazole [Protonix] 20 mg Tablet,Delayed Release (Dr/Ec) 20 mg PO QAM potassium chloride 20 mEq Tablet Extended Release 20 meq PO HS cyanocobalamin (vitamin B-12) [Vitamin B-12] 1,000 mcg Tablet Extended Release 1,000 mcg PO QAM magnesium 250 mg Tablet 250 mg PO QAM carbidopa-levodopa [Sinemet] 25-100 mg tablet 1 tab PO TID finasteride [Proscar] 5 mg tablet 5 mg PO QAM tramadol 50 mg tablet 50 mg PO Q6H PRN (Reason: pain, moderate) Qty: 30 0RF ondansetron 4 mg tablet,disintegrating 4 mg PO Q6H PRN (Reason: nausea and vomiting) Qty: 30 0RF oxycodone 5 mg tablet 5 mg PO DAILY PRN (Reason: pain) Qty: 20 0RF allopurinol 100 mg tablet 100 mg PO HS insulin glargine [Lantus Solostar U-100 Insulin] 100 unit/mL (3 mL) insulin pen 20 unit SUBCUT BID polyethylene glycol 3350 [Miralax] 17 gram/dose powder 17 g PO PM furosemide 20 mg tablet 20 mg PO QAM sennosides [Senokot] 8.6 mg tablet 8.6 mg PO QAM insulin aspart U-100 [Novolog FlexPen U-100 Insulin] 100 unit/mL (3 mL) insulin pen 1 sliding scale dose subcut ACHS Rx Instructions: supplemental scale for meal-time coverage and bed-time coverage. calcium polycarbophil [Fiber (calcium polycarbophil)] 625 mg Tablet 625 mg PO QAM Qty: 30 0RF Rx Instructions: OTC gabapentin 300 mg capsule 300 mg PO HS topiramate 100 mg tablet 100 mg PO BID Saline Mist 0.65 % aerosol,spray 2 spray intranasal QID PRN (Reason: DRYNESS) lactulose 20 gram/30 mL solution 20 g PO PM Discontinued warfarin 7.5 mg tablet 7.5 mg PO DIRECTED Rx Instructions: As directed by anticoagulation clinic. Discharge Orders: Discharge Order (Routine); Ordered 10/10/22 Ordered By: Wilmer Ann Admission Data Admit Date/Time: 10/08/22 21:24 Attending Provider: Daniel Easley Admit Provider: Daniel Burton Primary Care Provider: Josemanuel Melo Other Providers: Shayan Mims ; Candido Shannon. Other Interventions: Discharge Summary Assessment (RN) Last Done: 10/10/22 11:54 Supervising Physician Co-Signing Physician Notes I also saw the patient and confirmed peña portions of the history and exam. I agree with the impression and plan as noted in the resident note. Patient has no new complaints. He would like to transition to traditional INR monitoring (instead of home finger stick, which is increasingly difficulty given is tremors). EXAM A/O. NAD Pleasant. Talkative. Heart regular, mechanical valve appreciated. Lungs clear with n/l respirations. DATA HgB 10 INR 2.5 IMPRESSION AND PLAN Normocytic anemia in the setting of h/o GIB - stable Hgb, GI does not recommend inpatient evaluation at present. PPI added Supratherapeutic INR - INR - 2.5 today; Restart warfarin at reduced dose and recheck late this week Outpatient follow up arranged in our office. Else see resident documentation as noted. Resident Activity Tracking Resident Involvement: Resident Care Provided Care Provided: Adult Hospital Medicine
[2022-10-10 08:05] LABS: Hematocrit (blood only) 30.7 % (42.0-52.0); Hemoglobin 10.1 g/dl (14.0-18.0); Red Blood Count 3.53 M/uL (4.70-6.10); White Blood Count 3.17 K/ul (4.8-10.8)
[2022-10-10 08:06] LABS: Basophils # (auto) 0.05 K/uL (0-0.2); Basophils % (auto) 1.6 %; Eosinophils # (auto) 0.27 K/uL (0-0.50); Eosinophils % (auto) 8.5 %; Immature Granulocytes # (auto) 0.03 K/uL (0.01-0.20); Immature Granulocytes % (auto) 0.9 %; Lymphocytes # (auto) 1.08 K/uL (1.2-3.4); Lymphocytes % (auto) 34.1 %; Mean Corpuscular Hemoglobin 28.6 pg (25.0-34.0); Mean Corpuscular Hgb Conc 32.9 g/dL (32.0-36.0); Monocytes # (auto) 0.29 K/uL (0.11-0.59); Monocytes % (auto) 9.1 %; Neutrophils # (auto) 1.45 K/uL (1.40-6.50); Neutrophils % (auto) 45.8 %; Platelet Count 175 K/uL (130-400); RDW Coefficient of Variation 15.6 % (11.5-14.5); RDW Standard Deviation 49.6 fL (36.4-46.3)
[2022-10-10] MEDS: INSULIN ASPART PER UNIT CHARGE SC SCH ×2 (08:17→12:05)
[2022-10-10] MEDS: LANTUS PER UNIT CHARGE SQ SCH (08:18)
[2022-10-10] MEDS: CARBIDOPA/LEVODOPA 25/100MG TAB PO SCH ×2 (08:18→13:38)
[2022-10-10] MEDS: cephALEXin 500 MG CAP PO SCH ×2 (08:19→13:38)
[2022-10-10] MEDS: FEXOFENADINE HCL 180 MG TAB PO SCH (08:19)
[2022-10-10] MEDS: TOPIRAMATE 100 MG TAB PO SCH (08:19)
[2022-10-10] MEDS: levETIRAcetam 500 MG TAB PO SCH (08:19)
[2022-10-10] MEDS: GABAPENTIN 300 MG CAP PO SCH (08:19)
[2022-10-10] MEDS: MAGNESIUM OXIDE 400 MG TAB PO SCH (08:19)
[2022-10-10] MEDS: FINASTERIDE 5 MG TAB PO SCH (08:20)
[2022-10-10] MEDS: SENNA 8.6 MG TAB PO SCH (08:20)
[2022-10-10] MEDS: FUROSEMIDE 20 MG TAB PO SCH (08:20)
[2022-10-10] MEDS: predniSONE 5 MG TAB PO SCH (08:20)
[2022-10-10] MEDS: PANTOprazole 40 MG in SYRINGE 0 ML IV SCH (08:20)
[2022-10-10] MEDS: UMECLIDINIUM/VILANTEROL 62.5/25MCG 7 PUFFS/INHALER INH SCH (08:21)
[2022-10-10] MEDS: FLUTICASONE FUROATE 100MCG 14 PUFFS/INHALER INH SCH (08:21)
[2022-10-10 08:39] LABS: INR 2.5 (0.9-1.1); Partial Thromboplastin Ratio 1.4; Partial Thromboplastin Time 39.7 Seconds (21.0-31.0); Prothrombin Time 25.5 Seconds (9.0-12.0)
[2022-10-10] MEDS ORDERED: ASPIRIN 81 MG ECTAB PO SCH (09:00)
[2022-10-10] MEDS ORDERED: WARFARIN SOD 5 MG TAB PO SCH (16:00)
[2022-10-10] MEDS ORDERED: WARFARIN SOD 2 MG TAB PO SCH (16:00)
== END 2022-10-10 15:09 | disposition home or self-care (01) ==
LOC: ED 16:52 → 2N 16:52 → SUATTDRO 21:24 → 2N 23:56
DX: E11.9 Type 2 diabetes mellitus without complications; M06.9 Rheumatoid arthritis, unspecified; Z91.041 Radiographic dye allergy status; Z88.5 Allergy status to narcotic agent; Z88.8 Allergy status to other drugs, medicaments and biological substances; K92.2 Gastrointestinal hemorrhage, unspecified; Z88.7 Allergy status to serum and vaccine; N18.30 Chronic kidney disease, stage 3 unspecified; R56.9 Unspecified convulsions; Z91.013 Allergy to seafood; Z79.82 Long term (current) use of aspirin; Z79.4 Long term (current) use of insulin; Z79.01 Long term (current) use of anticoagulants; L03.114 Cellulitis of left upper limb; R53.1 Weakness; Z95.2 Presence of prosthetic heart valve; I25.10 Atherosclerotic heart disease of native coronary artery without angina pectoris

== ENCOUNTER 2022-11-06 16:40 | Inpatient (IN) ==
--- NOTE | 2022-11-06 17:24 | Emergency Department Note ---
History of Present Illness General Chief complaint: Urinary Symptoms Time Seen by Provider: 11/06/22 16:41 History of Present Illness Provider complaint: Weakness cloudy urine concern for infection Onset (ago): week(s) 1 Maximum Pain Intensity: 4 77-year-old male with history of Parkinson's disease presents emergency department for weakness cloudy urine and concern for infection. Patient reports has been feeling increasingly weak for the last week. He reports that he feels his urine has been cloudier for the last week. Reports no fevers. No falls. No headache. Some mild nausea. No vomiting. Patient reports right-sided flank pain as well. Home Medications Medication Instructions Recorded Confirmed Type atorvastatin 40 mg tablet 40 mg PO HS 05/28/20 11/06/22 History fexofenadine 180 mg tablet 180 mg PO QAM 02/11/21 11/06/22 History (Karlee Allergy) allopurinol 100 mg tablet 100 mg PO HS 04/10/21 11/06/22 History cholecalciferol (vitamin D3) 50 4,000 unit PO HS 07/14/21 11/06/22 History mcg (2,000 unit) capsule (Vitamin D3) insulin glargine 100 unit/mL (3 20 unit subcut BID 07/26/21 11/06/22 History mL) subcutaneous pen (Lantus Solostar U-100 Insulin) acetaminophen 325 mg tablet 650 mg PO Q4H PRN pain #30 tabs 08/04/21 11/06/22 Rx aspirin 81 mg tablet,delayed 81 mg PO QAM #30 tabs 08/04/21 11/06/22 Rx release fluticasone fur. 100 mcg-umeclid 1 inh inhalation QAM #60 ea 09/06/21 11/06/22 Rx 62.5 mcg-vilant 25 mcg inhalat.powder (Trelegy Ellipta) albuterol sulfate 90 mcg/actuation 2 puff inhalation Q4H PRN 09/27/21 11/06/22 History aerosol inhaler (Ventolin HFA) Shortness Of Breath Or Wheezing polyethylene glycol 3350 17 17 g PO BID 10/04/21 11/06/22 History gram/dose oral powder (Miralax) furosemide 20 mg tablet 20 mg PO QAM 11/24/21 11/06/22 History sennosides 8.6 mg tablet (Senokot) 8.6 mg PO QAM 11/24/21 11/06/22 History insulin aspart U-100 100 unit/mL 1 sliding scale dose subcut ACHS 02/26/22 11/06/22 History (3 mL) subcutaneous pen (Novolog FlexPen U-100 Insulin aspart) diclofenac sodium 1 % topical gel 2 g topical TID PRN Pain 05/21/22 11/06/22 History (Voltaren Arthritis Pain) ferrous sulfate 325 mg (65 mg 325 mg PO QAM #30 tabs 05/26/22 11/06/22 Rx iron) tablet,delayed release levetiracetam 500 mg tablet 1,000 mg PO BID #360 tabs 08/03/22 11/06/22 Rx (Keppra) cyanocobalamin (vitamin B-12) 1,000 mcg PO QAM 08/14/22 11/06/22 History 1,000 mcg tablet,extended release (Vitamin B-12 ER) gabapentin 300 mg capsule 600 mg PO QAM 08/14/22 11/06/22 History magnesium 250 mg tablet 250 mg PO QAM 08/14/22 11/06/22 History pantoprazole 20 mg tablet,delayed 20 mg PO QAM 08/14/22 11/06/22 History release (Protonix) potassium chloride 20 mEq 20 meq PO HS 08/14/22 11/06/22 History tablet,extended release prednisone 5 mg tablet 5 mg PO QAM 08/14/22 11/06/22 History carbidopa 25 mg-levodopa 100 mg 1 tab PO TID 08/23/22 11/06/22 History tablet (Sinemet) ondansetron 4 mg disintegrating 4 mg PO Q6H PRN nausea and 08/24/22 11/06/22 Rx tablet vomiting #30 tabs tramadol 50 mg tablet 50 mg PO Q6H PRN pain, moderate 08/24/22 11/06/22 Rx #30 tabs calcium polycarbophil 625 mg 625 mg PO QAM #30 tabs 09/14/22 11/06/22 Rx tablet (Fiber (calcium polycarbophil)) gabapentin 300 mg capsule 300 mg PO HS 09/30/22 11/06/22 History lactulose 20 gram/30 mL oral 20 g PO PM 09/30/22 11/06/22 History solution sodium chloride 0.65 % nasal spray 2 spray intranasal QID PRN DRYNESS 09/30/22 11/06/22 History aerosol (Saline Mist) topiramate 100 mg tablet 100 mg PO BID 09/30/22 11/06/22 History finasteride 5 mg tablet (Proscar) 5 mg PO QAM #30 tabs 10/18/22 11/06/22 Rx warfarin 5 mg tablet 5 - 7.5 mg PO DIRECTED 11/06/22 11/06/22 History Allergies Allergy/AdvReac Type Severity Reaction Status Date / Time bee venom protein (honey bee) Allergy Severe anaphylaxis Verified 11/06/22 17:33 Iodinated Contrast Media Allergy Severe Anaphylaxis Verified 11/06/22 17:33 shellfish derived Allergy Severe Anaphylaxis Verified 11/06/22 17:33 doxazosin Allergy Intermediate Rash Verified 11/06/22 17:33 tamsulosin [From Flomax] Allergy Intermediate Itching Verified 11/06/22 17:33 Tetanus Vaccines and Toxoid Allergy Unknown Unknown Verified 11/06/22 17:33 lamotrigine AdvReac Intermediate Confusion Verified 11/06/22 17:33 oxycodone [From Percocet] AdvReac Intermediate nausea/vomi Verified 11/06/22 17:33 ting propoxyphene [From Darvon] AdvReac Intermediate nausea/vomi Verified 11/06/22 17:33 ting Past Med/Surg History Medical History (Updated 11/06/22 @ 21:39 by Camacho Theodore MD) Anemia history of blood transfusion, 2020 Anxiety Aortic ectasia, thoracic Aspiration pneumonia hx of--per pt was due to pain medications Asthma inhaler daily and prn CAD (coronary artery disease) follows with Dr. 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 inhaler daily and prn and uses 2L N/C at hs Migraine Neurogenic claudication due to lumbar spinal stenosis On home oxygen therapy 2L at hs Pancytopenia Parkinsonism per pt has a difficulty swallowing, states certain foods can be difficult to eat Pneumonia hx of, per pt last admission @ [facility] was 05/2022 Polymyositis Prostate cancer radiation Rheumatoid arthritis Shortness of breath per pt on with exertion Somatic dysfunction of cervical region Stroke-like symptom 12/2019, w/ blurry vision and dysarthria. mild R sided wkness. attending out patient physical therapy w/ good improvement in strength (5+/5 strength of all 4 extremities as of 05/28/20) Supratherapeutic INR Thoracic ascending aortic aneurysm s/p repair TIA (transient ischemic attack) 2019--no deficits--follows with Dr. Sheikh Surgical History H/O hernia repair History of aortic valve replacement 2003 @ [facility] in [place], [place] History of appendectomy History of bilateral cataract extraction History of cardiac cath x3--2018 @ [facility] with 1 stent placed/2019 @ [facility]/last 04/2021 @ [facility] History of cholecystectomy History of colonoscopy History of esophagogastroduodenoscopy (EGD) History of fusion of cervical spine normal ROM History of gastric bypass 2007--lap band History of heart artery stent x1--2017 @ [facility] History of lumbar spinal fusion History of lung biopsy 2018 History of partial nephrectomy 1986 on right kidney History of prostate biopsy malignant History of tonsillectomy History of tooth extraction all upper teeth removed Family History Mother , age 87 of pulmonary issues Rheumatoid arthritis Father , in his mid 80s of a stroke Stroke Other Coronary heart disease No family history of adverse response to anesthesia Social History Smoking Status: Never smoker Second Hand Exposure: No; Do You Dip or Chew Tobacco: No; Hx Alcohol Use: No Hx Substance Use: No Preferred Language: Mauritian Communication Ability: Effective Hearing Ability: Hard of Hearing Log Inspector Required: No Beliefs That Will Affect Care: None marital status: / Current Living Situation: Personal Care Facility Current Living Situation Comment: [facility] current occupational status: retired 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 How many Children do You have: 2 How many Children do You have Comment: son Feels Safe at Home: Yes Assistive Devices: Oxygen - at Night, Scooter/Electric Scooter and Walker Physical Exam Vital Signs Vital Signs - 24 hr 11/06/22 16:43 11/06/22 16:49 11/06/22 17:24 Temperature 36.5 C 36.5 C Temperature Source Oral Oral Pulse Rate 97 H 73 Pulse Rate [Bilateral] 86 Respiratory Rate 18 16 Respiratory Effort / Characteristics Non-Labored Respiratory Depth Normal Blood Pressure 126/74 Blood Pressure [Right Arm] 126/74 Blood Pressure Mean 91 Blood Pressure Mean [Right Arm] 91 Pulse Oximetry 98 100 Oxygen Delivery Method Room Air Sepsis Recent Fever Within 48 Hours Yes Sepsis New/Unexplained Change in Mental Status No Sepsis Action Taken by Nursing No Action Required 11/06/22 17:34 11/06/22 17:34 11/06/22 18:00 Temperature Temperature Source Pulse Rate 65 Pulse Rate [Bilateral] 62 84 Respiratory Rate 18 18 18 Respiratory Effort / Characteristics Non-Labored Respiratory Depth Normal Blood Pressure Blood Pressure [Right Arm] 128/72 Blood Pressure Mean Blood Pressure Mean [Right Arm] 90 Pulse Oximetry 97 98 96 Oxygen Delivery Method Room Air Room Air Sepsis Recent Fever Within 48 Hours Sepsis New/Unexplained Change in Mental Status Sepsis Action Taken by Nursing 11/06/22 18:30 11/06/22 18:45 11/06/22 19:12 Temperature Temperature Source Oral Pulse Rate Pulse Rate [Bilateral] 70 63 77 Respiratory Rate 18 18 18 Respiratory Effort / Characteristics Non-Labored Spontaneous Respiratory Depth Normal Blood Pressure Blood Pressure [Right Arm] 140/78 132/75 Blood Pressure Mean Blood Pressure Mean [Right Arm] 98 94 Pulse Oximetry 96 97 96 Oxygen Delivery Method Room Air Room Air Sepsis Recent Fever Within 48 Hours Sepsis New/Unexplained Change in Mental Status Sepsis Action Taken by Nursing 11/06/22 20:30 11/06/22 20:33 Temperature Temperature Source Pulse Rate Pulse Rate [Bilateral] 73 63 Respiratory Rate 18 18 Respiratory Effort / Characteristics Non-Labored Respiratory Depth Normal Blood Pressure Blood Pressure [Right Arm] 127/72 127/72 Blood Pressure Mean Blood Pressure Mean [Right Arm] 90 90 Pulse Oximetry 98 97 Oxygen Delivery Method Room Air Sepsis Recent Fever Within 48 Hours Sepsis New/Unexplained Change in Mental Status Sepsis Action Taken by Nursing HENT: Exam performed. - Head: Normocephalic and atraumatic. NECK: Normal range of motion. Neck supple. No JVD present. No pain on palpation of the C-spine. CV: Normal rate, regular rhythm, normal heart sounds and intact distal pulses. There is no peripheral edema. Palpable radial pulses bue. PULM/CHEST: Effort normal and breath sounds normal. No respiratory distress. No stridor. He has no wheezes. He has no rales. ABD: The abdomen is soft. There is tenderness to palpation of the right lower quadrant. There is no rebound, no guarding. SKIN: Skin is warm and dry. He is not diaphoretic. Course Course 1640: The patient was evaluated in room B12. A complete history and physical exam was performed Cardiac monitoring: An order was placed for continuous cardiac monitoring. The monitor shows a rate of 70 with sinus rhythm interpreted by mo 174: Vital signs stable. Lactic acid is greater than 2. 30 cc/kg normal saline bolus and Rocephin ordered for the patient. 1914: Vital signs stable. Labs show an SHYANN and UTI. Patient treated with Rocephin and 30 cc/kg normal saline bolus for his elevated lactic acid. Imaging shows no bowel obstruction stable left-sided nephrolithiasis no ureteral stones or hydronephrosis. [facility]. Administered Medications Sodium Chloride (Nss) 500 mls @ 125 mls/hr IV .Q4H KIRSTEN Stop: 12/06/22 16:59 Last Admin: 11/06/22 21:24 Dose: 125 mls/hr Documented By: JS Discontinued Medications Ceftriaxone Sodium 1,000 mg/ (Dextrose) 50 mls @ 100 mls/hr IV NOW STA Stop: 11/06/22 18:09 Last Infusion: 11/06/22 18:45 Dose: 0 mls/hr Documented By: Admin: 11/06/22 18:16 Dose: 100 mls/hr Documented By: TBS Sodium Chloride (Nss 1000ml) 2,000 mls @ 999 mls/hr IV .Q2H1M ONE Stop: 11/06/22 19:40 Last Admin: 11/06/22 18:16 Dose: 999 mls/hr Documented By: TBS Sodium Chloride (Nss 1000ml) 500 mls @ 999 mls/hr IV .Q31M ONE Stop: 11/06/22 18:10 Last Admin: 11/06/22 20:36 Dose: 999 mls/hr Documented By: SUKHDEV Ketorolac Tromethamine (Ketorolac Tromethamine 15 Mg/Ml Vial) 15 mg IV NOW STA Stop: 11/06/22 21:22 Last Admin: 11/06/22 21:33 Dose: 15 mg Documented By: SUKHDEV Medical Decision Making Laboratory Data Attestation: I reviewed the patient's lab results. 11/06/22 17:30 11/06/22 17:30 Lab Results 11/06/22 11/06/22 11/06/22 Range/Units 17:30 17:30 17:30 WBC 4.73 L (4.8-10.8) K/ul RBC 4.19 L (4.70-6.10) M/uL Hgb 11.5 L (14.0-18.0) g/dl Hct 36.1 L (42.0-52.0) % MCV 86.2 (80.0-100.0) fL MCH 27.4 (25.0-34.0) pg MCHC 31.9 L (32.0-36.0) g/dL RDW Std Deviation 47.6 H (36.4-46.3) fL RDW Coeff of Lianne 15.1 H (11.5-14.5) % Plt Count 175 (130-400) K/uL MPV 10.1 (9.4-12.4) fL Immature Gran % (Auto) 0.4 % Neut % (Auto) 67.0 % Lymph % (Auto) 23.5 % Lasalle % (Auto) 4.9 % Eos % (Auto) 3.6 % Baso % (Auto) 0.6 % Neut # (Auto) 3.17 (1.40-6.50) K/uL Lymph # (Auto) 1.11 L (1.2-3.4) K/uL Lasalle # (Auto) 0.23 (0.11-0.59) K/uL Eos # (Auto) 0.17 (0-0.50) K/uL Baso # (Auto) 0.03 (0-0.2) K/uL Immature Gran # (Auto) 0.02 (0.01-0.20) K/uL PT 30.0 H (9.0-12.0) Seconds INR 2.9 H (0.9-1.1) APTT 41.9 H* (21.0-31.0) Seconds PTT Ratio 1.5 Sodium 139 (136-145) mmol/L Potassium 3.9 (3.5-5.1) mmol/L Chloride 106 (98-107) mmol/L Carbon Dioxide 24 (21-32) mmol/L Anion Gap 9 (3-11) BUN 33 H (6-23) mg/dl Creatinine 1.57 H (0.6-1.4) mg/dl Est Cr Clr Drug Dosing 48.8 ml/min Est GFR ( Amer) 48.6 ml/min Est GFR (Non-Af Amer) 41.9 ml/min BUN/Creatinine Ratio 21.0 H (10-20) Glucose 201 H (70-99(Fasting)) mg/dl Lactate (0.4-2.0) mmol/L Calcium 9.4 (8.6-10.3) mg/dl Magnesium 2.5 H (1.7-2.4) mg/dl Total Bilirubin 0.5 (0.2-1.0) mg/dl Direct Bilirubin 0.1 (0-0.2) mg/dl AST 21 (13-39) U/L ALT 15 (7-52) U/L Alkaline Phosphatase 76 (34-104) U/L Troponin I High Sens 7.0 (0-20) pg/ml Total Protein 6.9 (6.0-8.3) gm/dl Albumin 4.0 (3.4-5.0) gm/dl Procalcitonin (0-0.5) ng/ml Urine Color Urine Appearance (Clear) Urine pH (4.5-7.5) Ur Specific [place] (1.000-1.030) Urine Protein (Negative) Urine Glucose (UA) (Negative) Urine Ketones (Negative) Urine Blood (Negative) Urine Nitrite (Negative) Urine Bilirubin (Negative) Urine Urobilinogen (Negative) Ur Leukocyte Esterase (Negative) Urine WBC (Auto) (0-5) /hpf Urine RBC (Auto) (0-4) /hpf U Hyaline Cast (Auto) (0-5) /lpf U Epithel Cells (Auto) (0-5) /lpf Urine Bacteria (Auto) (Negative) SARS-CoV-2, RNA, NAAT (NEGATIVE) 11/06/22 11/06/22 11/06/22 Range/Units 17:30 17:30 18:25 WBC (4.8-10.8) K/ul RBC (4.70-6.10) M/uL Hgb (14.0-18.0) g/dl Hct (42.0-52.0) % MCV (80.0-100.0) fL MCH (25.0-34.0) pg MCHC (32.0-36.0) g/dL RDW Std Deviation (36.4-46.3) fL RDW Coeff of Lianne (11.5-14.5) % Plt Count (130-400) K/uL MPV (9.4-12.4) fL Immature Gran % (Auto) % Neut % (Auto) % Lymph % (Auto) % [place] % (Auto) % Eos % (Auto) % Baso % (Auto) % Neut # (Auto) (1.40-6.50) K/uL Lymph # (Auto) (1.2-3.4) K/uL Lasalle # (Auto) (0.11-0.59) K/uL Eos # (Auto) (0-0.50) K/uL Baso # (Auto) (0-0.2) K/uL Immature Gran # (Auto) (0.01-0.20) K/uL PT (9.0-12.0) Seconds INR (0.9-1.1) APTT (21.0-31.0) Seconds PTT Ratio Sodium (136-145) mmol/L Potassium (3.5-5.1) mmol/L Chloride (98-107) mmol/L Carbon Dioxide (21-32) mmol/L Anion Gap (3-11) BUN (6-23) mg/dl Creatinine (0.6-1.4) mg/dl Est Cr Clr Drug Dosing ml/min Est GFR ( Amer) ml/min Est GFR (Non-Af Amer) ml/min BUN/Creatinine Ratio (10-20) Glucose (70-99(Fasting)) mg/dl Lactate 2.9 H* (0.4-2.0) mmol/L Calcium (8.6-10.3) mg/dl Magnesium (1.7-2.4) mg/dl Total Bilirubin (0.2-1.0) mg/dl Direct Bilirubin (0-0.2) mg/dl AST (13-39) U/L ALT (7-52) U/L Alkaline Phosphatase (34-104) U/L Troponin I High Sens (0-20) pg/ml Total Protein (6.0-8.3) gm/dl Albumin (3.4-5.0) gm/dl Procalcitonin 0.27 (0-0.5) ng/ml Urine Color Yellow Urine Appearance Clear (Clear) Urine pH 7.5 (4.5-7.5) Ur Specific [place] 1.015 (1.000-1.030) Urine Protein Negative (Negative) Urine Glucose (UA) Negative (Negative) Urine Ketones Negative (Negative) Urine Blood Negative (Negative) Urine Nitrite Positive A (Negative) Urine Bilirubin Negative (Negative) Urine Urobilinogen Negative (Negative) Ur Leukocyte Esterase Trace H (Negative) Urine WBC (Auto) 10-30 H (0-5) /hpf Urine RBC (Auto) 0-4 (0-4) /hpf U Hyaline Cast (Auto) 1-5 (0-5) /lpf U Epithel Cells (Auto) 0-5 (0-5) /lpf Urine Bacteria (Auto) 2+ H (Negative) SARS-CoV-2, RNA, NAAT (NEGATIVE) 11/06/22 11/06/22 Range/Units 20:34 20:47 WBC (4.8-10.8) K/ul RBC (4.70-6.10) M/uL Hgb (14.0-18.0) g/dl Hct (42.0-52.0) % MCV (80.0-100.0) fL MCH (25.0-34.0) pg MCHC (32.0-36.0) g/dL RDW Std Deviation (36.4-46.3) fL RDW Coeff of Lianne (11.5-14.5) % Plt Count (130-400) K/uL MPV (9.4-12.4) fL Immature Gran % (Auto) % Neut % (Auto) % Lymph % (Auto) % [place]alle % (Auto) % Eos % (Auto) % Baso % (Auto) % Neut # (Auto) (1.40-6.50) K/uL Lymph # (Auto) (1.2-3.4) K/uL [place] # (Auto) (0.11-0.59) K/uL Eos # (Auto) (0-0.50) K/uL Baso # (Auto) (0-0.2) K/uL Immature Gran # (Auto) (0.01-0.20) K/uL PT (9.0-12.0) Seconds INR (0.9-1.1) APTT (21.0-31.0) Seconds PTT Ratio Sodium (136-145) mmol/L Potassium (3.5-5.1) mmol/L Chloride (98-107) mmol/L Carbon Dioxide (21-32) mmol/L Anion Gap (3-11) BUN (6-23) mg/dl Creatinine (0.6-1.4) mg/dl Est Cr Clr Drug Dosing ml/min Est GFR ( Amer) ml/min Est GFR (Non-Af Amer) ml/min BUN/Creatinine Ratio (10-20) Glucose (70-99(Fasting)) mg/dl Lactate 1.5 (0.4-2.0) mmol/L Calcium (8.6-10.3) mg/dl Magnesium (1.7-2.4) mg/dl Total Bilirubin (0.2-1.0) mg/dl Direct Bilirubin (0-0.2) mg/dl AST (13-39) U/L ALT (7-52) U/L Alkaline Phosphatase (34-104) U/L Troponin I High Sens (0-20) pg/ml Total Protein (6.0-8.3) gm/dl Albumin (3.4-5.0) gm/dl Procalcitonin (0-0.5) ng/ml Urine Color Urine Appearance (Clear) Urine pH (4.5-7.5) Ur Specific [place] (1.000-1.030) Urine Protein (Negative) Urine Glucose (UA) (Negative) Urine Ketones (Negative) Urine Blood (Negative) Urine Nitrite (Negative) Urine Bilirubin (Negative) Urine Urobilinogen (Negative) Ur Leukocyte Esterase (Negative) Urine WBC (Auto) (0-5) /hpf Urine RBC (Auto) (0-4) /hpf U Hyaline Cast (Auto) (0-5) /lpf U Epithel Cells (Auto) (0-5) /lpf Urine Bacteria (Auto) (Negative) SARS-CoV-2, RNA, NAAT NEGATIVE (NEGATIVE) Imaging Data Attestation: I personally reviewed and interpreted this imaging study as follows: My Impression: No significant change in the chest x-ray from September 2022. Radiologist's Impression: Abdomen/Pelvis CT 11/06/22 16:[address] WITHOUT CONTRAST CT DOSE: 1383.55 mGy.cm HISTORY: Right-sided flank and right lower quadrant pain. TECHNIQUE: Multiaxial CT images of the abdomen and pelvis were performed without contrast. A dose lowering technique was utilized adhering to the principles of ALARA. COMPARISON STUDY: Abdomen and pelvis CT 09/09/2022. FINDINGS: Tree-in-bud nodular opacities again noted at the lung bases consistent with a chronic infectious bronchiolitis. This is similar to the prior study. There are linear scarlike densities at the right lung base. Suture material again noted at the left lung base. No pneumoperitoneum. No pneumatosis. L3-S1 posterior decompression and fusion with pedicle screws and rods. There are poststernotomy changes. No acute fractures identified. Near horizontal orientation of the gastric lap band again noted. This is considered suboptimal. Cholecystectomy. The unenhanced liver, spleen, adrenal glands, and pancreas are unremarkable. No right renal calculi. There were a few punctate stones within the left kidney. There are few punctate cortical calcifications within the right kidney, unchanged. Mild bilateral perinephric edema remains unchanged and is likely chronic. No ureteral stones. No hydronephrosis. Mild calcified plaque within the normal caliber abdominal aorta. No retroperitoneal or pelvic lymph adenopathy. No pelvic free fluid. The bladder is unremarkable. Brachytherapy seeds noted within the prostate gland. Suboptimal evaluation for bowel pathology due to the lack of intravenous and oral contrast. However, there is no definite bowel wall thickening or obstruction. Colonic diverticulosis. No evidence for acute diverticulitis. Prior appendectomy. Moderate fecal retention. IMPRESSION: 1. Stable left-sided nephrolithiasis. No ureteral stones. No hydronephrosis. 2. No definite bowel wall thickening or obstruction. 3. Moderate fecal retention. 4. Colonic diverticulosis. No evidence for acute diverticulitis. 5. Near horizontal orientation of the gastric lap band. This is considered subo ptimal. 6. Persistent tree-in-bud nodularity within the lung bases suggesting a chronic bronchiolitis. 7. Additional findings as described above. ACT 112: Negative or not required by law. Electronically signed by: Jc Che M.D. 11/06/2022 6:02 PM Chest X-Ray 11/06/22 16:52 XR chest 1V portable HISTORY: Sepsis COMPARISON: Chest 10/08/2022. FINDINGS: No pneumothorax. No pleural effusions. There are low lung volumes. The cardiac silhouette remains mildly enlarged. There is an aortic valve prosthesis and poststernotomy changes again noted. A few bibasilar linear densities consistent with subsegmental atelectasis. Otherwise, no focal lung consolidations to suggest a pneumonia. No evidence for pulmonary edema. A gastric lap band remains unchanged in position. However, there is suboptimal positioning of the gastric lap band with a near horizontal orientation. IMPRESSION: 1. No significant change compared to the prior study. No acute process. 2. A gastric lap band remains unchanged in position. However, there is suboptimal positioning of the gastric lap band with a near horizontal orientation. ACT 112: Negative or not required by law. Electronically signed by: Jc hCe M.D. 11/06/2022 5:48 PM ECG Data Attestation: I personally reviewed and interpreted this ECG as follows: Rate (beats per minute): 66 Rhythm: + normal sinus ECG Intervals/blocks: + Normal QRS, + Normal NJ and + Normal QT-c ECG ST segments: + Normal ST segments MDM Narrative 1641: The patient was evaluated in room B12. A complete history and physical exam was performed Cardiac monitoring: An order was placed for continuous cardiac monitoring. The monitor shows a rate of 70 with sinus rhythm interpreted by mo 1740: Vital signs stable. Lactic acid is greater than 2. 30 cc/kg normal saline bolus and Rocephin ordered for the patient. 1915: Vital signs stable. Labs show an SHYANN and UTI. Patient treated with Rocephin and 30 cc/kg normal saline bolus for his elevated lactic acid. Imaging shows no bowel obstruction stable left-sided nephrolithiasis no ureteral stones or hydronephrosis. [facility]. Impression & Plan Urinary tract infection, SHYANN (acute kidney injury) Discharge Plan Visit Data Chief Complaint: Urinary Symptoms ED Provider: Camacho Theodore Discharge Problem: Urinary tract infection, SHYANN (acute kidney injury) Patient Disposition: Admitted As Inpatient Forms Stand Alone Forms: [facility] Prescriptions Prescriptions: No Action Heather Ellipta 100-62.5-25 mcg blister with device 1 inh inhalation QAM Qty: 60 5RF finasteride [Proscar] 5 mg tablet 5 mg PO QAM Qty: 30 3RF levetiracetam [Keppra] 500 mg tablet 1,000 mg PO BID Qty: 360 3RF cholecalciferol (vitamin D3) [Vitamin D3] 50 mcg (2,000 unit) capsule 4,000 unit PO HS atorvastatin 40 mg tablet 40 mg PO HS fexofenadine [Karlee Allergy] 180 mg Tablet 180 mg PO QAM acetaminophen 325 mg Tablet 650 mg PO Q4H PRN (Reason: pain) Qty: 30 0RF Rx Instructions: OTC aspirin 81 mg Tablet,Delayed Release (Dr/Ec) 81 mg PO QAM Qty: 30 0RF Rx Instructions: OTC albuterol sulfate [Ventolin HFA] 90 mcg/actuation HFA aerosol inhaler 2 puff INHALATION Q4H PRN (Reason: Shortness Of Breath Or Wheezing) diclofenac sodium [Voltaren Arthritis Pain] 1 % Gel 2 g TOPICAL TID PRN (Reason: Pain) Rx Instructions: left knee ferrous sulfate 325 mg (65 mg iron) Tablet,Delayed Release (Dr/Ec) 325 mg PO QAM Qty: 30 0RF prednisone 5 mg Tablet 5 mg PO QAM gabapentin 300 mg capsule 600 mg PO QAM Rx Instructions: 600mg in am/300mg in pm pantoprazole [Protonix] 20 mg Tablet,Delayed Release (Dr/Ec) 20 mg PO QAM potassium chloride 20 mEq Tablet Extended Release 20 meq PO HS cyanocobalamin (vitamin B-12) [Vitamin B-12] 1,000 mcg Tablet Extended Release 1,000 mcg PO QAM magnesium 250 mg Tablet 250 mg PO QAM carbidopa-levodopa [Sinemet] 25-100 mg tablet 1 tab PO TID tramadol 50 mg tablet 50 mg PO Q6H PRN (Reason: pain, moderate) Qty: 30 0RF ondansetron 4 mg tablet,disintegrating 4 mg PO Q6H PRN (Reason: nausea and vomiting) Qty: 30 0RF warfarin 5 mg tablet 5 - 7.5 mg PO DIRECTED Rx Instructions: Take according to anticoagulation cinic. allopurinol 100 mg tablet 100 mg PO HS insulin glargine [Lantus Solostar U-100 Insulin] 100 unit/mL (3 mL) insulin pen 20 unit SUBCUT BID polyethylene glycol 3350 [Miralax] 17 gram/dose powder 17 g PO BID furosemide 20 mg tablet 20 mg PO QAM sennosides [Senokot] 8.6 mg tablet 8.6 mg PO QAM insulin aspart U-100 [Novolog FlexPen U-100 Insulin] 100 unit/mL (3 mL) insulin pen 1 sliding scale dose subcut ACHS Rx Instructions: supplemental scale for meal-time coverage and bed-time coverage. calcium polycarbophil [Fiber (calcium polycarbophil)] 625 mg Tablet 625 mg PO QAM Qty: 30 0RF Rx Instructions: OTC gabapentin 300 mg capsule 300 mg PO HS topiramate 100 mg tablet 100 mg PO BID Saline Mist 0.65 % aerosol,spray 2 spray intranasal QID PRN (Reason: DRYNESS) lactulose 20 gram/30 mL solution 20 g PO PM Referrals Referrals: Tan Hammond DO [Primary Care Provider] -
[2022-11-06] MEDS ORDERED: cefTRIAXone SODIUM 1,000 MG in DEXTROSE 5% AD-VAN 50 ML IV STA (17:40)
[2022-11-06] MEDS ORDERED: SODIUM CHLORIDE 0.9% 1000ML 500 ML IV ONE (17:40)
[2022-11-06] MEDS ORDERED: SODIUM CHLORIDE 0.9% 1000ML 2,000 ML IV ONE (17:40)
--- NOTE | 2022-11-06 17:50 | XRay Report ---
XR chest 1V portable HISTORY: Sepsis COMPARISON: Chest 10/08/2022. FINDINGS: No pneumothorax. No pleural effusions. There are low lung volumes. The cardiac silhouette r emains mildly enlarged. There is an aortic valve prosthesis and poststernotomy changes again noted. A few bibasilar linear densities consistent with subsegmental atelectasis. Otherwise, no focal lung co nsolidations to suggest a pneumonia. No evidence for pulmonary edema. A gastric lap band remains unch anged in position. However, there is suboptimal positioning of the gastric lap band with a near horiz ontal orientation. IMPRESSION: 1. No significant change compared to the prior study. No acute process. 2. A gastric lap band remains unchanged in position. However, there is suboptimal positioning of the gastric lap band with a near horizontal orientation. ACT 112: Negative or not required by law. Electronically signed by: Jc Che M.D. 11/06/2022 5:48 PM
[2022-11-06 17:55] LABS: Basophils # (auto) 0.03 K/uL (0-0.2); Basophils % (auto) 0.6 %; Eosinophils # (auto) 0.17 K/uL (0-0.50); Eosinophils % (auto) 3.6 %; Hematocrit (blood only) 36.1 % (42.0-52.0); Hemoglobin 11.5 g/dl (14.0-18.0); Immature Granulocytes # (auto) 0.02 K/uL (0.01-0.20); Immature Granulocytes % (auto) 0.4 %; Lymphocytes # (auto) 1.11 K/uL (1.2-3.4); Lymphocytes % (auto) 23.5 %; Mean Corpuscular Hemoglobin 27.4 pg (25.0-34.0); Mean Corpuscular Hgb Conc 31.9 g/dL (32.0-36.0); Mean Corpuscular Volume 86.2 fL (80.0-100.0); Mean Platelet Volume 10.1 fL (9.4-12.4); Monocytes # (auto) 0.23 K/uL (0.11-0.59); Monocytes % (auto) 4.9 %; Neutrophils # (auto) 3.17 K/uL (1.40-6.50); Platelet Count 175 K/uL (130-400); RDW Coefficient of Variation 15.1 % (11.5-14.5); RDW Standard Deviation 47.6 fL (36.4-46.3); Red Blood Count 4.19 M/uL (4.70-6.10); White Blood Count 4.73 K/ul (4.8-10.8)
--- NOTE | 2022-11-06 18:04 | CT Scan Report ---
ABDOMEN AND PELVIS CT WITHOUT CONTRAST CT DOSE: 1383.55 mGy.cm HISTORY: Right-sided flank and right lower quadrant pain. TECHNIQUE: Multiaxial CT images of the abdomen and pelvis were performed without contrast. A dose lo wering technique was utilized adhering to the principles of ALARA. COMPARISON STUDY: Abdomen and pelvis CT 09/09/2022. FINDINGS: Tree-in-bud nodular opacities again noted at the lung bases consistent with a chronic infec tious bronchiolitis. This is similar to the prior study. There are linear scarlike densities at the r ight lung base. Suture material again noted at the left lung base. No pneumoperitoneum. No pneumatosi s. L3-S1 posterior decompression and fusion with pedicle screws and rods. There are poststernotomy ch anges. No acute fractures identified. Near horizontal orientation of the gastric lap band again noted . This is considered suboptimal. Cholecystectomy. The unenhanced liver, spleen, adrenal glands, and p ancreas are unremarkable. No right renal calculi. There were a few punctate stones within the left ki dney. There are few punctate cortical calcifications within the right kidney, unchanged. Mild bilater al perinephric edema remains unchanged and is likely chronic. No ureteral stones. No hydronephrosis. Mild calcified plaque within the normal caliber abdominal aorta. No retroperitoneal or pelvic lymphad enopathy. No pelvic free fluid. The bladder is unremarkable. Brachytherapy seeds noted within the pro state gland. Suboptimal evaluation for bowel pathology due to the lack of intravenous and oral contra st. However, there is no definite bowel wall thickening or obstruction. Colonic diverticulosis. No ev idence for acute diverticulitis. Prior appendectomy. Moderate fecal retention. IMPRESSION: 1. Stable left-sided nephrolithiasis. No ureteral stones. No hydronephrosis. 2. No definite bowel wall thickening or obstruction. 3. Moderate fecal retention. 4. Colonic diverticulosis. No evidence for acute diverticulitis. 5. Near horizontal orientation of the gastric lap band. This is considered suboptimal. 6. Persistent tree-in-bud nodularity within the lung bases suggesting a chronic bronchiolitis. 7. Additional findings as described above. ACT 112: Negative or not required by law. Electronically signed by: Jc Che M.D. 11/06/2022 6:02 PM
[2022-11-06 18:08] LABS: Bilirubin Direct 0.1 mg/dl (0-0.2); Bilirubin,Total 0.5 mg/dl (0.2-1.0); Calcium 9.4 mg/dl (8.6-10.3); Creatinine Clr Calc Pharmacy 48.8 ml/min; Est GFR (African American) 48.6 ml/min; Est GFR (Non-African American) 41.9 ml/min; Magnesium 2.5 mg/dl (1.7-2.4); Potassium 3.9 mmol/L (3.5-5.1); Total Protein 6.9 gm/dl (6.0-8.3)
[2022-11-06 18:41] LABS: Appearance Urine Clear (Clear); Bacteria Urine Automated 2+ (Negative); Bilirubin Urine Negative (Negative); Blood Urine Negative (Negative); Color Urine Yellow; Epithelial Cell Urine Auto 0-5 /lpf (0-5); Glucose Urine UA Negative (Negative); Ketones Urine Negative (Negative); Leukocyte Esterase Urine Trace (Negative); Nitrite Urine Positive (Negative); Protein Urine Negative (Negative); RBC Urine Automated 0-4 /hpf (0-4); Specific Gravity Urine 1.015 (1.000-1.030); Urobilinogen Urine Negative (Negative); pH Urine 7.5 (4.5-7.5)
[2022-11-06 18:45] LABS: INR 2.9 (0.9-1.1); Partial Thromboplastin Ratio 1.5
[2022-11-06 19:22] LABS: Partial Thromboplastin Time 41.9 Seconds (21.0-31.0)
--- NOTE | 2022-11-06 19:26 | History & Physical Report ---
Date of Service November 06, 2022 Assessment & Plan (1) Pyelonephritis: Plan: 77yo male with multiple medical comorbidities presenting with 8-9 days of cloudy urine and several days of chills, nausea, malaise and poor appetite as well as right flank pain and suprapubic pain. Patient is afebrile, hemodynamically stable. He has suprapubic tenderness as well as right CVA tenderness. Labs are significant for mild leukopenia with WBC=4.73 with lymphopenia as well as an elevated lactate level of 2.9. UA is suggestive of infection. CT of the abdomen was performed which shows presence of stable left sided nephrolithiasis, no ureteral stones or hydronephrosis. Mild bilateral perinephric edema is present and unchanged - likely chronic. No additional findings involving the right kidney. -Admit to medical -Follow urine and blood cultures sent from the ER -Continue Ceftriaxone 2gm IV daily -Patient received 2L IVF in the ER - will continue NSS at 100mL/hr x 1 additional liter. -Zofran as needed for nausea -Tylenol and Tramadol as needed for pain -Repeat lactate in AM (2) Chronic kidney disease, stage 3a: Plan: Patient with CKD, mildly elevated BUN and Cr from prior values. BUN=33 today from previous value of 24 on 10/12/22. Cr is 1.57 from 1.32. Suspect some level of volume contraction - patient reports poor appetite and decreased oral intake over the last several days. Has been given 2L NSS in the ER. -Continue NSS at 100mL/hr x 1L -Repeat chemistry in AM -Avoid nephrotoxic agents -Renal dosing where needed for CrCl of 48 (3) Mechanical heart valve present: Plan: Patient on coumadin therapy. INR=2.9 -Continue Coumadin 7.5mg po q nightly on //F/Sat/Sun -Coumadin 5mg po nightly on T/R -Repeat INR in AM (4) Diabetes: Plan: Patient with DM. Last [id number]=5.7 on 08/24/22 -Continue Lantus - will reduce to 15u BID -ISS -Goal blood sugar 110-140 (5) Seizure disorder: Plan: Chronic -Continue Keppra, Topamax and Gabapentin (6) Rheumatoid arthritis: Plan: Chronic. Stable -Continue Prednisone 5mg po daily (7) CAD (coronary artery disease): Plan: Chronic. Patient denies chest pain or shortness of breath. Troponin is WNL. No ischemic changes present on EKG. -Continue ASA 81mg po daily -Atorvastatin 40mg po qHS (8) Parkinsonism: Plan: Chronic. Stable -Continue Carbidopa/Levodopa at home dose F/E/N - NSS at 100mL/hr x 1L, electrolytes WNL, CC diet as tolerated Ppx - on Coumadin, continue, monitor INR Code - Full per discussion with patient Dispo - Admit to medical History of Present Illness Chief Complaint: urinary complaints Primary Care Provider: Tan Hammond DO Xavi Bradford is a 77yo male with history of CAD, CKD, DM, Gout, HLP, Seizures, RA/Polymyositis on Prednisone daily and mechanical aortic valve on Coumadin anticoagulation presenting from outpatient clinic with UTI and concern for pyelonephritis. Patient reports having cloudy urine for the last 8-9 days. Several days ago he developed dysuria, nausea, malaise, poor appetite and decreased oral intake. He was having some difficulty urinating - felt like he needed to strain to urinate. This morning he developed severe pain in the right flank which lasted about 20 minutes. He continued to have right flank pain throughout the day. He also developed some suprapubic tenderness. He was seen in clinic today and was subsequently sent to the ER for additional workup and treatment. Patient additionally reports chills and generalized weakness with difficulty ambulating. He denies fever, chest pain, cough, SOB, vomiting or diarrhea. No additional complaints at this time. In the ER he is afebrile, HD stable and non-toxic in appearance ER Course: Ceftriaxone 1gm NSS x 2L Allergies Allergy/AdvReac Type Severity Reaction Status Date / Time bee venom protein (honey bee) Allergy Severe anaphylaxis Verified 11/06/22 17:33 Iodinated Contrast Media Allergy Severe Anaphylaxis Verified 11/06/22 17:33 shellfish derived Allergy Severe Anaphylaxis Verified 11/06/22 17:33 doxazosin Allergy Intermediate Rash Verified 11/06/22 17:33 tamsulosin [From Flomax] Allergy Intermediate Itching Verified 11/06/22 17:33 Tetanus Vaccines and Toxoid Allergy Unknown Unknown Verified 11/06/22 17:33 lamotrigine AdvReac Intermediate Confusion Verified 11/06/22 17:33 oxycodone [From Percocet] AdvReac Intermediate nausea/vomi Verified 11/06/22 17: 33 ting propoxyphene [From Darvon] AdvReac Intermediate nausea/vomi Verified 11/06/22 17:33 ting Home Medications Medication Instructions Recorded Confirmed Type atorvastatin 40 mg tablet 40 mg PO HS 05/28/20 11/06/22 History fexofenadine 180 mg tablet 180 mg PO QAM 02/11/21 11/06/22 History (Karlee Allergy) allopurinol 100 mg tablet 100 mg PO HS 04/10/21 11/06/22 History cholecalciferol (vitamin D3) 50 4,000 unit PO HS 07/14/21 11/06/22 History mcg (2,000 unit) capsule (Vitamin D3) insulin glargine 100 unit/mL (3 20 unit subcut BID 07/26/21 11/06/22 History mL) subcutaneous pen (Lantus Solostar U-100 Insulin) acetaminophen 325 mg tablet 650 mg PO Q4H PRN pain #30 tabs 08/04/21 11/06/22 Rx aspirin 81 mg tablet,delayed 81 mg PO QAM #30 tabs 08/04/21 11/06/22 Rx release fluticasone fur. 100 mcg-umeclid 1 inh inhalation QAM #60 ea 09/06/21 11/06/22 Rx 62.5 mcg-vilant 25 mcg inhalat.powder (Trelegy Ellipta) albuterol sulfate 90 mcg/actuation 2 puff inhalation Q4H PRN 09/27/21 11/06/22 History aerosol inhaler (Ventolin HFA) Shortness Of Breath Or Wheezing polyethylene glycol 3350 17 17 g PO BID 10/04/21 11/06/22 History gram/dose oral powder (Miralax) furosemide 20 mg tablet 20 mg PO QAM 11/24/21 11/06/22 History sennosides 8.6 mg tablet (Senokot) 8.6 mg PO QAM 11/24/21 11/06/22 History insulin aspart U-100 100 unit/mL 1 sliding scale dose subcut ACHS 02/26/22 11/06/22 History (3 mL) subcutaneous pen (Novolog FlexPen U-100 Insulin aspart) diclofenac sodium 1 % topical gel 2 g topical TID PRN Pain 05/21/22 11/06/22 History (Voltaren Arthritis Pain) ferrous sulfate 325 mg (65 mg 325 mg PO QAM #30 tabs 05/26/22 11/06/22 Rx iron) tablet,delayed release levetiracetam 500 mg tablet 1,000 mg PO BID #360 tabs 08/03/22 11/06/22 Rx (Keppra) cyanocobalamin (vitamin B-12) 1,000 mcg PO QAM 08/14/22 11/06/22 History 1,000 mcg tablet,extended release (Vitamin B-12 ER) gabapentin 300 mg capsule 600 mg PO QAM 08/14/22 11/06/22 History magnesium 250 mg tablet 250 mg PO QAM 08/14/22 11/06/22 History pantoprazole 20 mg tablet,delayed 20 mg PO QAM 08/14/22 11/06/22 History release (Protonix) potassium chloride 20 mEq 20 meq PO HS 08/14/22 11/06/22 History tablet,extended release prednisone 5 mg tablet 5 mg PO QAM 08/14/22 11/06/22 History carbidopa 25 mg-levodopa 100 mg 1 tab PO TID 08/23/22 11/06/22 History tablet (Sinemet) ondansetron 4 mg disintegrating 4 mg PO Q6H PRN nausea and 08/24/22 11/06/22 Rx tablet vomiting #30 tabs tramadol 50 mg tablet 50 mg PO Q6H PRN pain, moderate 08/24/22 11/06/22 Rx #30 tabs calcium polycarbophil 625 mg 625 mg PO QAM #30 tabs 09/14/22 11/06/22 Rx tablet (Fiber (calcium polycarbophil)) gabapentin 300 mg capsule 300 mg PO HS 09/30/22 11/06/22 History lactulose 20 gram/30 mL oral 20 g PO PM 09/30/22 11/06/22 History solution sodium chloride 0.65 % nasal spray 2 spray intranasal QID PRN DRYNESS 09/30/22 11/06/22 History aerosol (Saline Mist) topiramate 100 mg tablet 100 mg PO BID 09/30/22 11/06/22 History finasteride 5 mg tablet (Proscar) 5 mg PO QAM #30 tabs 10/18/22 11/06/22 Rx warfarin 5 mg tablet 5 - 7.5 mg PO DIRECTED 11/06/22 11/06/22 History Past Med/Surg History Medical History (Updated 11/06/22 @ 20:16 by Ana Dong DO) Anemia history of blood transfusion, 2020 Anxiety Aortic ectasia, thoracic Aspiration pneumonia hx of--per pt was due to pain medications Asthma inhaler daily and prn CAD (coronary artery disease) follows with Dr. Chau Chronic dyspnea Chronic kidney disease, stage 3a Chronic pulmonary aspiration Chronic respiratory failure with hypoxia Chronic use of steroids Constipated Current use of care home anticoagulation warfarin daily Depression Diabetes IDDM Diabetic peripheral neuropathy Dysphagia Edema Generalized weakness GI bleed Gout Hearing deficit Heart failure > 70% History of seizures last 2019--on Keppra/Topiramate--follows with Dr. 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 inhaler daily and prn and uses 2L N/C at hs Migraine Neurogenic claudication due to lumbar spinal stenosis On home oxygen therapy 2L at hs Pancytopenia Parkinsonism per pt has a difficulty swallowing, states certain foods can be difficult to eat Pneumonia hx of, per pt last admission @ [facility] was 05/2022 Polymyositis Prostate cancer radiation Rheumatoid arthritis Shortness of breath per pt on with exertion Somatic dysfunction of cervical region Stroke-like symptom 12/2019, w/ blurry vision and dysarthria. mild R sided wkness. attending outpatient physical therapy w/ good improvement in strength (5+/5 strength of all 4 extremities as of 05/28/20) Supratherapeutic INR Thoracic ascending aortic aneurysm s/p repair TIA (transient ischemic attack) 2019--no deficits--follows with Dr. Sheikh Surgical History H/O hernia repair History of aortic valve replacement 2004 @ [facility] in [place], [place] History of appendectomy History of bilateral cataract extraction History of cardiac cath x3--2017 @ [facility] with 1 stent placed/2019 @ [facility]/last 04/2021 @ [facility] History of cholecystectomy History of colonoscopy History of esophagogastroduodenoscopy (EGD) History of fusion of cervical spine normal ROM History of gastric bypass 2007--lap band History of heart artery stent x1--2017 @ [facility] History of lumbar spinal fusion History of lung biopsy 2019 History of partial nephrectomy 1986 on right kidney History of prostate biopsy malignant History of tonsillectomy History of tooth extraction all upper teeth removed Family History Mother , age 87 of pulmonary issues Rheumatoid arthritis Father , in his mid 80s of a stroke Stroke Other Coronary heart disease No family history of adverse response to anesthesia Social History Smoking Status: Never smoker Second Hand Exposure: No; Do You Dip or Chew Tobacco: No; Hx Alcohol Use: No Hx Substance Use: No Preferred Language: Maltese Communication Ability: Effective Hearing Ability: Hard of Hearing Crystal Inspector Required: No Beliefs That Will Affect Care: None marital status: / Current Living Situation: Personal Care Facility Current Living Situation Comment: [place] [facility] current occupational status: retired 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 How many Children do You have: 2 How many Children do You have Comment: son Feels Safe at Home: Yes Assistive Devices: Oxygen - at Night, Scooter/Electric Scooter and Walker Review of Systems Review of Systems: All systems reviewed & are unremarkable except as noted in HPI & below Physical Exam Physical Exam: General: chronically ill appearing male patient resting comfortably, NAD, non- toxic in appearance, AA&O x 4 Skin: warm, dry, intact, no rashes or lesions HEENT: NC/AT, PERRL, EOMI, anicteric sclera, conjunctiva without injection, external ear normal to inspection and nontender, nares patent, moist mucus membranes, dentition intact, no oropharyngeal lesions, neck supple, trachea midline, no LAD, no thyromegaly, no JVD Heart: +S1/S2, regular, audible mid-systolic mechanical click, no m/r/g Lungs: equal air entry bilaterally, no rales/rhonchi/wheezes Abd: +BS, soft, ND, suprapubic tenderness, no rebound/peritonitis, +right CVA tenderness with light percussion Ext: warm, 2+ pulses in UE/LE bilaterally, no clubbing/cyanosis, 1+ pitting edema of bilateral LE Neuro: nonfocal, patient AA&O x 4, speech intact, no facial droop, moving all extremities on command with equal strength 5/5 Results & Data Results & Data Vital Signs (Past 12 Hours) Vital Signs Temp Pulse Pulse Resp BP BP Pulse Ox 11/06/22 19:12 77 18 132/75 96 11/06/22 18:45 63 18 97 11/06/22 18:30 70 18 140/78 96 11/06/22 18:00 84 18 128/72 96 11/06/22 17:34 62 18 98 11/06/22 17:34 65 18 97 11/06/22 17:24 73 11/06/22 16:49 36.5 C 86 16 126/74 100 11/06/22 16:43 36.5 C 97 H 18 126/74 98 O2 Del Method 11/06/22 19:12 Room Air 11/06/22 18:45 Room Air 11/06/22 18:30 11/06/22 18:00 Room Air 11/06/22 17:34 11/06/22 17:34 Room Air 11/06/22 17:24 11/06/22 16:49 11/06/22 16:43 Room Air Laboratory Results Laboratory Results WBC 4.73 K/ul (4.8-10.8) L 11/06/22 17:30 RBC 4.19 M/uL (4.70-6.10) L 11/06/22 17:30 Hgb 11.5 g/dl (14.0-18.0) L 11/06/22 17:30 Hct 36.1 % (42.0-52.0) L 11/06/22 17:30 MCV 86.2 fL (80.0-100.0) 11/06/22 17:30 MCH 27.4 pg (25.0-34.0) 11/06/22 17:30 MCHC 31.9 g/dL (32.0-36.0) L 11/06/22 17:30 RDW Std Deviation 47.6 fL (36.4-46.3) H 11/06/22 17:30 RDW Coeff of Lianne 15.1 % (11.5-14.5) H 11/06/22 17:30 Plt Count 175 K/uL (130-400) 11/06/22 17:30 MPV 10.1 fL (9.4-12.4) 11/06/22 17:30 Immature Gran % (Auto) 0.4 % 11/06/22 17:30 Neut % (Auto) 67.0 % 11/06/22 17:30 Lymph % (Auto) 23.5 % 11/06/22 17:30 [place] % (Auto) 4.9 % 11/06/22 17:30 Eos % (Auto) 3.6 % 11/06/22 17:30 Baso % (Auto) 0.6 % 11/06/22 17:30 Neut # (Auto) 3.17 K/uL (1.40-6.50) 11/06/22 17:30 Lymph # (Auto) 1.11 K/uL (1.2-3.4) L 11/06/22 17:30 [place] # (Auto) 0.23 K/uL (0.11-0.59) 11/06/22 17:30 Eos # (Auto) 0.17 K/uL (0-0.50) 11/06/22 17:30 Baso # (Auto) 0.03 K/uL (0-0.2) 11/06/22 17:30 Immature Gran # (Auto) 0.02 K/uL (0.01-0.20) 11/06/22 17:30 PT 30.0 Seconds (9.0-12.0) H 11/06/22 17:30 INR 2.9 (0.9-1.1) H 11/06/22 17:30 APTT 41.9 Seconds (21.0-31.0) H* 11/06/22 17:30 PTT Ratio 1.5 11/06/22 17:30 Sodium 139 mmol/L (136-145) 11/06/22 17:30 Potassium 3.9 mmol/L (3.5-5.1) 11/06/22 17:30 Chloride 106 mmol/L (98-107) 11/06/22 17:30 Carbon Dioxide 24 mmol/L (21-32) 11/06/22 17:30 Anion Gap 9 (3-11) 11/06/22 17:30 BUN 33 mg/dl (6-23) H 11/06/22 17:30 Creatinine 1.57 mg/dl (0.6-1.4) H 11/06/22 17:30 Est Cr Clr Drug Dosing 48.8 ml/min 11/06/22 17:30 Est GFR ( Amer) 48.6 ml/min 11/06/22 17:30 Est GFR (Non-Af Amer) 41.9 ml/min 11/06/22 17:30 BUN/Creatinine Ratio 21.0 (10-20) H 11/06/22 17:30 Glucose 201 mg/dl (70-99(Fasting)) H 11/06/22 17:30 Lactate 2.9 mmol/L (0.4-2.0) H* 11/06/22 17:30 Calcium 9.4 mg/dl (8.6-10.3) 11/06/22 17: Magnesium 2.5 mg/dl (1.7-2.4) H 11/06/22 17:30 Total Bilirubin 0.5 mg/dl (0.2-1.0) 11/06/22 17: Direct Bilirubin 0.1 mg/dl (0-0.2) 11/06/22 17:30 AST 21 U/L (13-39) 11/06/22 17:30 ALT 15 U/L (7-52) 11/06/22 17:30 Alkaline Phosphatase 76 U/L (34-104) 11/06/22 17:30 Troponin I High Sens 7.0 pg/ml (0-20) 11/06/22 17:30 Total Protein 6.9 gm/dl (6.0-8.3) 11/06/22 17: Albumin 4.0 gm/dl (3.4-5.0) 11/06/22 17: Procalcitonin 0.27 ng/ml (0-0.5) 11/06/22 17:30 Urine Color Yellow 11/06/22 18:25 Urine Appearance Clear (Clear) 11/06/22 18: Urine pH 7.5 (4.5-7.5) 11/06/22 18:25 Ur Specific [place] 1.015 (1.000-1.030) 11/06/22 18:25 Urine Protein Negative (Negative) 11/06/22 18:25 Urine Glucose (UA) Negative (Negative) 11/06/22 18: Urine Ketones Negative (Negative) 11/06/22 18:25 Urine Blood Negative (Negative) 11/06/22 18:25 Urine Nitrite Positive (Negative) A 11/06/22 18:25 Urine Bilirubin Negative (Negative) 11/06/22 18:25 Urine Urobilinogen Negative (Negative) 11/06/22 18:25 Ur Leukocyte Esterase Trace (Negative) H 11/06/22 18:25 Urine WBC (Auto) 10-30 /hpf (0-5) H 11/06/22 18:25 Urine RBC (Auto) 0-4 /hpf (0-4) 11/06/22 18:25 U Hyaline Cast (Auto) 1-5 /lpf (0-5) 11/06/22 18:25 U Epithel Cells (Auto) 0-5 /lpf (0-5) 11/06/22 18:25 Urine Bacteria (Auto) 2+ (Negative) H 11/06/22 18:25 Impressions Abdomen/Pelvis CT 11/06/22 16:[address] WITHOUT CONTRAST CT DOSE: 1383.55 mGy.cm HISTORY: Right-sided flank and right lower quadrant pain. TECHNIQUE: Multiaxial CT images of the abdomen and pelvis were performed without contrast. A dose lowering technique was utilized adhering to the principles of ALARA. COMPARISON STUDY: Abdomen and pelvis CT 09/09/2022. FINDINGS: Tree-in-bud nodular opacities again noted at the lung bases consistent with a chronic infectious bronchiolitis. This is similar to the prior study. There are linear scarlike densities at the right lung base. Suture material again noted at the left lung base. No pneumoperitoneum. No pneumatosis. L3-S1 posterior decompression and fusion with pedicle screws and rods. There are poststernotomy changes. No acute fractures identified. Near horizontal orientation of the gastric lap band again noted. This is considered suboptimal. Cholecystectomy. The unenhanced liver, spleen, adrenal glands, and pancreas are unremarkable. No right renal calculi. There were a few punctate stones within the left kidney. There are few punctate cortical calcifications within the right kidney, unchanged. Mild bilateral perinephric edema remains unchanged and is likely chronic. No ureteral stones. No hydronephrosis. Mild calcified plaque within the normal caliber abdominal aorta. No retroperitoneal or pelvic lymphadenopathy. No pelvic free fluid. The bladder is unremarkable. Brachytherapy seeds noted within the prostate gland. Suboptimal evaluation for bowel pathology due to the lack of intravenous and oral contrast. However, there is no definite bowel wall thickening or obstruction. Colonic diverticulosis. No evidence for acute diverticulitis. Prior appendectomy. Moderate fecal retention. IMPRESSION: 1. Stable left-sided nephrolithiasis. No ureteral stones. No hydronephrosis. 2. No definite bowel wall thickening or obstruction. 3. Moderate fecal retention. 4. Colonic diverticulosis. No evidence for acute diverticulitis. 5. Near horizontal orientation of the gastric lap band. This is considered suboptimal. 6. Persistent tree-in-bud nodularity within the lung bases suggesting a chronic bronchiolitis. 7. Additional findings as described above. ACT 112: Negative or not required by law. Electronically signed by: Jc Che M.D. 11/06/2022 6:02 PM Chest X-Ray 11/06/22 16:52 XR chest 1V portable HISTORY: Sepsis COMPARISON: Chest 10/08/2022. FINDINGS: No pneumothorax. No pleural effusions. There are low lung volumes. The cardiac silhouette remains mildly enlarged. There is an aortic valve prosthesis and poststernotomy changes again noted. A few bibasilar linear densities consistent with subsegmental atelectasis. Otherwise, no focal lung consol idations to suggest a pneumonia. No evidence for pulmonary edema. A gastric lap band remains unchanged in position. However, there is suboptimal positioning of the gastric lap band with a near horizontal orientation. IMPRESSION: 1. No significant change compared to the prior study. No acute process. 2. A gastric lap band remains unchanged in position. However, there is suboptimal positioning of the gastric lap band with a near horizontal orientation. ACT 112: Negative or not required by law. Electronically signed by: Jc Che M.D. 11/06/2022 5:48 PM ECG Additional Comments: EKG - by my interpretation, study reveals NSR at 66bpm, normal axis, VL=787, QRS=90, NPq=691, no acute ischemic changes PG Care Time/CCT Total # of Minutes Spent Total Time Spent with Patient: Total time spent is greater than 50% in coordination of care (as documented) at patient's floor/unit and/or counseling patient: Coding Level of Care Code 06135 INT INP/OBS CARE 3/75MIN Diagnoses Pyelonephritis N12 Chronic kidney disease, stage 3a N18.3 Mechanical heart valve present Z95.2 Diabetes E11.42; Z79.4 Diabetes mellitus type: type 2 Diabetes mellitus non linear editor insulin use: with care home use Diabetes mellitus complication status: with neurologic complications Diabetes mellitus complication detail: with polyneuropathy Seizure disorder G40.909 Rheumatoid arthritis M06.9 Rheumatoid arthritis location: unspecified site Rheumatoid factor presence: unspecified presence CAD (coronary artery disease) I25.10 Coronary Disease-Associated Artery/Lesion type: [place]ona artery [place] vs. transplanted heart: ramona heart Associated angina: without angina Parkinsonism G20 (4) Diabetes Diabetes mellitus type: type 2 Diabetes mellitus non linear editor insulin use: with non linear editor use Diabetes mellitus complication status: with neurologic complications Diabetes mellitus complication detail: with polyneuropathy Qualified Code(s): E11.42 - Type 2 diabetes mellitus with diabetic polyneuropathy; Z79.4 - MCC (current) use of insulin (6) Rheumatoid arthritis Rheumatoid arthritis location: unspecified site Rheumatoid factor presence: unspecified presence Qualified Code(s): M06.9 - Rheumatoid arthritis, unspecified (7) CAD (coronary artery disease) Coronary Disease-Associated Artery/Lesion type: ramona artery [place] vs. transplanted heart: ramona heart Associated angina: without angina Qualified Code(s): I25.10 - Atherosclerotic heart disease of ramona coronary artery without angina pectoris
[2022-11-06] MEDS: SODIUM CHLORIDE 0.9% 500 ML IV SCH ×3 (20:35→21:39)
[2022-11-06] MEDS ORDERED: KETOROLAC TROMETHAMINE 15 MG/ML VIAL IV STA (21:21)
[2022-11-06] MEDS ORDERED: ONDANSETRON INJ 2 MG/ML 2 ML VIAL IV PRN (22:27)
[2022-11-06] MEDS ORDERED: ALBUTEROL HFA 8 GM INHALER INH PRN (22:27)
[2022-11-06] MEDS ORDERED: GLUCAGON FOR INJ 1 MG VIAL SQ PRN (22:27)
[2022-11-06] MEDS ORDERED: ACETAMINOPHEN 325 MG TAB PO PRN (22:27)
[2022-11-06] MEDS ORDERED: SODIUM CHLORIDE 0.9% 1000ML 1,000 ML IV SCH (22:27)
[2022-11-06] MEDS ORDERED: GLUCOSE 40% GEL 15 GM TUBE PO PRN (22:27)
[2022-11-06] MEDS ORDERED: GLUCOSE 10 TAB/TUBE PO PRN (22:27)
[2022-11-06] MEDS ORDERED: DEXTROSE 50% 50 ML SYRINGE IV PRN (22:27)
[2022-11-06] MEDS ORDERED: CARBOHYDRATES FOR HYPOGLYCEMIA PO PRN (22:27)
[2022-11-06] MEDS ORDERED: WARFARIN SOD 5 MG TAB PO ONE (23:30)
[2022-11-07] MEDS: DICLOFENAC SOD 1% GEL 100 GM TUBE EXT PRN ×3 (00:05→21:48)
[2022-11-07] MEDS: TOPIRAMATE 100 MG TAB PO SCH ×3 (00:06→21:48)
[2022-11-07] MEDS: levETIRAcetam 500 MG TAB PO SCH ×3 (00:06→21:48)
[2022-11-07] MEDS: LACTULOSE SYRUP 20 GM/30 ML UDC PO SCH ×2 (00:06→21:49)
[2022-11-07] MEDS: CARBIDOPA/LEVODOPA 25/100MG TAB PO SCH ×4 (00:07→21:49)
[2022-11-07] MEDS: GABAPENTIN 300 MG CAP PO SCH ×3 (00:07→21:47)
[2022-11-07] MEDS: ATORVASTATIN 40 MG TAB PO SCH ×2 (00:07→21:45)
[2022-11-07] MEDS: allopurinoL 100 MG TAB PO SCH ×2 (00:09→21:49)
[2022-11-07] MEDS: POLYETHYLENE (MIRALAX) 17 GM PACK PO SCH ×3 (00:10→21:49)
[2022-11-07] MEDS: INSULIN ASPART PER UNIT CHARGE SC SCH ×5 (00:12→21:52)
[2022-11-07] MEDS: LANTUS PER UNIT CHARGE SQ SCH ×3 (00:27→21:52)
[2022-11-07 07:05] LABS: Hematocrit (blood only) 30.2 % (42.0-52.0); Hemoglobin 9.5 g/dl (14.0-18.0); Mean Corpuscular Hgb Conc 31.5 g/dL (32.0-36.0); Mean Corpuscular Volume 85.8 fL (80.0-100.0); Mean Platelet Volume 9.8 fL (9.4-12.4); Platelet Count 139 K/uL (130-400); RDW Coefficient of Variation 15.2 % (11.5-14.5); RDW Standard Deviation 47.8 fL (36.4-46.3); Red Blood Count 3.52 M/uL (4.70-6.10); White Blood Count 3.23 K/ul (4.8-10.8)
[2022-11-07] MEDS: CALCIUM CARBONATE 500 MG CHEWABLE TAB PO PRN (07:12)
[2022-11-07] MEDS: traMADol HCL 50 MG TABLET PO PRN ×3 (07:14→21:51)
[2022-11-07 07:26] LABS: Creatinine Clr Calc Pharmacy 61.5 ml/min; Est GFR (African American) 65.2 ml/min; Est GFR (Non-African American) 56.3 ml/min; Potassium 3.5 mmol/L (3.5-5.1)
[2022-11-07 07:31] LABS: INR 2.7 (0.9-1.1); Prothrombin Time 27.6 Seconds (9.0-12.0)
--- NOTE | 2022-11-07 07:38 | Hospitalist Progress Note ---
Date of Service November 07, 2022 Assessment & Plan (1) Pyelonephritis: Plan: Labs are significant for mild leukopenia with WBC, lymphopenia, worse today. Lactate improving since admission, now 1.3 (from 2.9) UA is suggestive of infection. CT of the abdomen was performed which shows presence of stable left sided nephrolithiasis, no ureteral stones or hydronephrosis. Mild bilateral perinephric edema is present and unchanged - likely chronic. No additional findings involving the right kidney. Follow urine and blood cultures Urine culture prelim gram neg bacilli Continue Ceftriaxone 2gm IV daily, await speciation and sensitivities Zofran as needed for nausea Tylenol and Tramadol as needed for pain Repeat lactate in AM (2) Chronic kidney disease, stage 3a: Plan: Patient with CKD -Recieved 3L NSS since admission -BUN, Creatinine improving Cr 1.23 from 1.57 today -Avoid nephrotoxic agents -Renal dosing where needed for CrCl of 48 (3) Mechanical heart valve present: Plan: Patient on coumadin therapy. INR=2.7 this AM -Continue Coumadin 7.5mg po q nightly on ///Sat/Sun -Coumadin 5mg po nightly on T/R (4) Diabetes: Plan: Patient with DM. Last RtiL6H=9.7 on 08/24/22 -Continue Lantus - will reduce to 15u BID -ISS -Goal blood sugar 110-140 -BS at goal this AM (5) Seizure disorder: Plan: Chronic -Continue Keppra, Topamax and Gabapentin (6) Rheumatoid arthritis: Plan: Chronic. Stable -Continue Prednisone 5mg po daily (7) CAD (coronary artery disease): Plan: Chronic. Patient denies chest pain or shortness of breath. Troponin is WNL. No ischemic changes present on EKG. -Continue ASA 81mg po daily -Atorvastatin 40mg po qHS (8) Parkinsonism: Plan: Chronic. Stable -Continue Carbidopa/Levodopa at home dose F/E/N - NSS at 100mL/hr x 1L, electrolytes WNL, CC diet as tolerated Ppx - on Coumadin, continue, monitor INR Code - Full per discussion with patient Dispo - Admit to medical Admission and Anticipated Discharge Date Admission Date: November 06, 2022 Supervising Physician Co-Signing Physician Notes ATTESTATION I also saw the patient and confirmed peña portions of the history and exam. I agree with the impression and plan in the resident documentation, and as summarized below. 77-year-old male with history of CAD, CKD, mechanical aortic valve on Coumadin presented to the outpatient office with a several day history of decreased appetite, general malaise, and right flank and suprapubic discomfort. Imaging and urinalysis suggestive of pyelonephritis. Patient was given 2 g of IV Rocephin in the emergency department and admitted to the floor. This morning, he is feeling slightly better. Still notes fatigue and generalized malaise. Appetite is somewhat improved. EXAM 127/68, 72, 15, 36.5, 90% on room air Alert and oriented. Hemodynamically stable. Heart regular rate and rhythm. Mechanical valve is auscultated Lungs clear throughout with nonlabored respirations. Bases are clear. Abdomen soft nontender Extremities with trace edema, his baseline DATA Labs Hemoglobin 9.5, platelet count 139, WBC 3.23 INR 2.7 Sodium 142, potassium 3.5, BUN 27, creatinine 1.23 Micro Urine culture collected 11/06/2022 is showing gram-negative bacilli, speciation and sensitivity pending Blood cultures collected 11/06/2022 are pending. IMPRESSION & PLAN Pyelonephritis He was aggressively hydrated in the emergency department, would hold off on additional IV fluids given his underlying CAD and hemodynamic stability Continue Rocephin Await culture and sensitivity Additional per resident documentation Subjective 77 yo male PMHx CAD, CKD, DM, Gout, HLP, Seizures, RA/Polymyositis on daily prednisone, mechanical aortic valve on coumadin for anticoagulation from [facility] outpatient clinic with UTI and pyelonephritis Reports cloudy urine for 8-9 days. Subsequently, developed dysuria, difficulty with urination (straining), malaise, poor appetite, and decreased oral intake. Began to develop intermittent R flank pain. Developed suprapubic tenderness. Additional + ROS chills, generalized weakness, poor ambulation, nausea Additonal - ROS fever, CP, cough, SOB, vomiting, diarrhea Review of Systems Review of Systems: Reviewed, as above Physical Exam Physical Exam: General: patient resting comfortably, NAD, chronically ill appearing, AA&O x 4, answers questions appropriately and follows commands. Skin: warm, dry, intact, no rashes or lesions HEENT: NC/AT, PERRL, EOMI, anicteric sclera, conjunctiva without injection, external ear normal to inspection and nontender, nares patent, moist mucus membranes, dentition intact, no oropharyngeal lesions, neck supple, trachea m idline, no LAD, no thyromegaly, no JVD Heart: +S1/S2, regular, no m/r/g Lungs: equal air entry bilaterally, no rales/rhonchi/wheezes +R flank TTP Abd: +BS, soft, non focal R-sided TTP, no masses/organomegaly/ascites Ext: warm, 2+ pulses in UE/LE bilaterally, no clubbing/cyanosis or edema Neuro: nonfocal, patient AA&O x 4, speech intact, no facial droop, moving all extremities on command with equal strength 5/5 Results & Data Results & Data Vital Signs (Past 12 Hours) Vital Signs Temp Pulse Pulse Pulse Resp BP BP 11/06/22 22:17 11/06/22 22:17 36.5 C 55 L 18 164/80 H 11/06/22 22:27 36.5 C 55 L 18 164/80 H 11/06/22 21:50 61 18 134/73 11/06/22 20:33 63 18 127/72 11/06/22 20:30 73 18 127/72 Pulse Ox O2 Del Method O2 Flow Rate 11/06/22 22:17 Room Air, Nasal Cannula 2 11/06/22 22:17 99 Room Air 11/06/22 22:27 99 Room Air 11/06/22 21:50 95 Room Air 11/06/22 20:33 97 Room Air 11/06/22 20:30 98 Resident Activity Tracking Resident Involvement: Resident Care Provided Care Provided: Adult Hospital Medicine (4) Diabetes Diabetes mellitus complication detail: with polyneuropathy Diabetes mellitus complication status: with neurologic complications Diabetes mellitus senior care insulin use: with senior care use Diabetes mellitus type: type 2 Qualified Code(s): E11.42 - Type 2 diabetes mellitus with diabetic polyneuropathy; Z79.4 - residential (current) use of insulin (6) Rheumatoid arthritis Rheumatoid arthritis location: unspecified site Rheumatoid factor presence: unspecified presence Qualified Code(s): M06.9 - Rheumatoid arthritis, unspecified (7) CAD (coronary artery disease) Associated angina: without angina Coronary Disease-Associated Artery/Lesion type: [place] artery [place] vs. transplanted heart: [place] heart Qualified Code(s): I25.10 - Atherosclerotic heart disease of [place] coronary artery without angina pectoris
[2022-11-07] MEDS: FINASTERIDE 5 MG TAB PO SCH (08:30)
[2022-11-07] MEDS: ASPIRIN 81 MG ECTAB PO SCH (08:31)
[2022-11-07] MEDS: FEXOFENADINE HCL 180 MG TAB PO SCH (08:31)
[2022-11-07] MEDS: PANTOprazole 40 MG TAB PO SCH (08:32)
[2022-11-07] MEDS: predniSONE 5 MG TAB PO SCH (08:32)
[2022-11-07] MEDS: SENNA 8.6 MG TAB PO SCH (08:34)
[2022-11-07] MEDS: UMECLIDINIUM/VILANTEROL 62.5/25MCG 7 PUFFS/INHALER INH SCH (08:37)
[2022-11-07] MEDS: FLUTICASONE FUROATE 100MCG 14 PUFFS/INHALER INH SCH (08:38)
[2022-11-07] MEDS ORDERED: NON-FORMULARY MEDICATION (Fluticasone-Umeclidin-Vilanter [Trelegy Ellipta] 100-62.5-25 mcg INH SCH (09:00)
[2022-11-07] MEDS: WARFARIN SOD 5 MG TAB PO SCH (15:58)
--- NOTE | 2022-11-07 17:47 | Electrocardiogram Report ---
Test Reason : Blood Pressure : / mmHG Vent. Rate : 066 BPM Atrial Rate : 066 BPM P-R Int : 136 ms QRS Dur : 090 ms QT Int : 446 ms P-R-T Axes : 037 004 077 degrees QTc Int : 467 ms Normal sinus rhythm Normal ECG Confirmed by Cody Soto ([id number]) on 11/07/2022 5:47:36 PM Referred By: REFERRED SELF Confirmed By:Wyatt Soto
[2022-11-07] MEDS ORDERED: cefTRIAXone SODIUM 2,000 MG in DEXTROSE 5% 50 ML IV SCH (18:00)
[2022-11-08] MEDS: CALCIUM CARBONATE 500 MG CHEWABLE TAB PO PRN (00:43)
--- NOTE | 2022-11-08 08:03 | Hospitalist Progress Note ---
Date of Service November 08, 2022 Assessment & Plan (1) Pyelonephritis: Plan: Urine culture + for Klebsiella pneumoniae susceptible to Augmentin Transition to PO Augmentin 500mg/125mg x 7-10 days total Labs are significant for mild leukopenia with WBC, lymphopenia Lactate improving since admission CT of the abdomen was performed which shows presence of stable left sided nephrolithiasis, no ureteral stones or hydronephrosis. Mild bilateral perinephric edema is present and unchanged - likely chronic. No additional findings involving the right kidney. Zofran as needed for nausea Tylenol and Tramadol as needed for pain Will need PT/OT evaluation for dispo (2) Chronic kidney disease, stage 3a: Plan: Patient with CKD -Recieved 3L NSS since admission -BUN, Creatinine improving Cr 1.23 from 1.57 today -Avoid nephrotoxic agents -Renal dosing where needed for CrCl of 48 (3) Mechanical heart valve present: Plan: Patient on coumadin therapy. INR=2.7 this AM -Continue Coumadin 7.5mg po q nightly on ///Sun/Sun -Coumadin 5mg po nightly on T/R (4) Diabetes: Plan: Patient with DM. Last UqwZ4N=0.7 on 08/24/22 -Continue Lantus - will reduce to 15u BID -ISS -Goal blood sugar 110-140 -BS at goal this AM (5) Seizure disorder: Plan: Chronic -Continue Keppra, Topamax and Gabapentin (6) Rheumatoid arthritis: Plan: Chronic. Stable -Continue Prednisone 5mg po daily (7) CAD (coronary artery disease): Plan: Chronic. Patient denies chest pain or shortness of breath. Troponin is WNL. No ischemic changes present on EKG. -Continue ASA 81mg po daily -Atorvastatin 40mg po qHS (8) Parkinsonism: Plan: Chronic. Stable -Continue Carbidopa/Levodopa at home dose F/E/N - NSS at 100mL/hr x 1L, electrolytes WNL, CC diet as tolerated Ppx - on Coumadin, continue, monitor INR Code - Full per discussion with patient Dispo - Admit to medical Admission and Anticipated Discharge Date Admission Date: November 06, 2022 Supervising Physician Co-Signing Physician Notes ATTESTATION I also saw the patient and confirmed peña portions of the history and exam. I agree with the impression and plan in the resident documentation, and as summarized below. He is a little sleepy this morning, most of it probably from dose of Benadryl he received earlier today. He does awaken to voice, and once he puts his hearing aids in, he is awake/alert/oriented. Overall, he notes he is feeling better. Still feels somewhat weak compared to his baseline. EXAM 104/60, 70, 18, 36.6 C He has been afebrile since admission Heart regular rate Lungs clear with nonlabored respirations DATA Labs Hemoglobin 9.7, platelet count 152 INR 2.8 Sodium 138, potassium 3.8, BUN 25, creatinine 1.16 Micro Urine culture collected 11/06/2022 is showing Klebsiella pneumoniae, sensitive to all except nitrofurantoin Blood cultures collected 11/06/2022 showed no growth at 24 hours IMPRESSION & PLAN Pyelonephritis Generally improving; significant comorbidities and baseline weakness that needs to be evaluated by PT/OT prior to discharge Like to confirm negative blood cultures prior to discharge Will transition to oral antibiotics today to assure tolerability PT/OT evaluation Additional per resident documentation Subjective 77 yo male PMHx CAD, CKD, DM, Gout, HLP, Seizures, RA/Polymyositis on daily prednisone, mechanical aortic valve on coumadin for anticoagulation from [facility] outpatient clinic with UTI and pyelonephritis Reports cloudy urine for 8-9 days. Subsequently, developed dysuria, difficulty with urination (straining), malaise, poor appetite, and decreased oral intake. Began to develop intermittent R flank pain. Developed suprapubic tenderness. Additional + ROS chills, generalized weakness, poor ambulation, nausea Additonal - ROS fever, CP, cough, SOB, vomiting, diarrhea Review of Systems Review of Systems: reviewed, as above Physical Exam Physical Exam: General: patient resting comfortably, NAD, chronically ill appearing, AA&O x 4, answers questions appropriately and follows commands. Skin: warm, dry, intact, no rashes or lesions HEENT: NC/AT, PERRL, EOMI, anicteric sclera, conjunctiva without injection, external ear normal to inspection and nontender, nares patent, moist mucus membranes, dentition intact, no oropharyngeal lesions, neck supple, trachea midline, no LAD, no thyromegaly, no JVD Heart: +S1/S2, regular, no m/r/g + mechanical valve click Lungs: equal air entry bilaterally, no rales/rhonchi/wheezes +R flank TTP Abd: +BS, soft, non focal R-sided TTP, no masses/organomegaly/ascites Ext: warm, 2+ pulses in UE/LE bilaterally, no clubbing/cyanosis or edema Neuro: nonfocal, patient AA&O x 4, speech intact, no facial droop, moving all extremities on command with equal strength 5/5 Results & Data Results & Data Vital Signs (Past 12 Hours) Vital Signs Temp Pulse Pulse Resp BP BP Pulse Ox 11/08/22 07:50 36.4 C L 68 18 129/74 97 11/07/22 20:00 11/07/22 22:12 36.4 C L 69 18 116/72 94 11/07/22 20:15 36.5 C 58 L 16 117/64 94 O2 Del Method 11/08/22 07:50 Room Air 11/07/22 20:00 Room Air 11/07/22 22:12 Room Air 11/07/22 20:15 Room Air Laboratory Results Abnormal lab results 11/07/22 11/07/22 11/07/22 Range/Units 07:53 11:48 17:04 POC Glucose 112 H 180 H 162 H (70-99) mg/dl 11/07/22 Range/Units 20:06 POC Glucose 175 H (70-99) mg/dl Resident Activity Tracking Resident Involvement: Resident Care Provided Care Provided: Adult [facility] Medicine (4) Diabetes Diabetes mellitus complication detail: with polyneuropathy Diabetes mellitus complication status: with neurologic complications Diabetes mellitus detention 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 transplanted heart: [place] heart Qualified Code(s): I25.10 - Atherosclerotic heart disease of [place] coronary artery without angina pectoris
[2022-11-08] MEDS ORDERED: diphenhydrAMINE 50 MG/ML VIAL IV PRN ×2 (08:25→12:52)
[2022-11-08] MEDS: ASPIRIN 81 MG ECTAB PO SCH (08:35)
[2022-11-08] MEDS: TOPIRAMATE 100 MG TAB PO SCH ×2 (08:35→22:10)
[2022-11-08] MEDS: levETIRAcetam 500 MG TAB PO SCH ×2 (08:36→22:10)
[2022-11-08] MEDS: GABAPENTIN 300 MG CAP PO SCH ×2 (08:36→22:09)
[2022-11-08 08:37] LABS: Basophils # (auto) 0.03 K/uL (0-0.2); Basophils % (auto) 0.9 %; Hematocrit (blood only) 30.8 % (42.0-52.0); Hemoglobin 9.7 g/dl (14.0-18.0); Immature Granulocytes # (auto) 0.02 K/uL (0.01-0.20); Immature Granulocytes % (auto) 0.6 %; Lymphocytes # (auto) 0.96 K/uL (1.2-3.4); Lymphocytes % (auto) 28.7 %; Mean Corpuscular Hgb Conc 31.5 g/dL (32.0-36.0); Mean Corpuscular Volume 85.8 fL (80.0-100.0); Mean Platelet Volume 10.2 fL (9.4-12.4); Monocytes # (auto) 0.19 K/uL (0.11-0.59); Monocytes % (auto) 5.7 %; Neutrophils # (auto) 1.94 K/uL (1.40-6.50); Neutrophils % (auto) 58.1 %; Platelet Count 152 K/uL (130-400); RDW Coefficient of Variation 15.1 % (11.5-14.5); RDW Standard Deviation 47.5 fL (36.4-46.3); Red Blood Count 3.59 M/uL (4.70-6.10); White Blood Count 3.34 K/ul (4.8-10.8)
[2022-11-08] MEDS: predniSONE 5 MG TAB PO SCH (08:37)
[2022-11-08] MEDS: CARBIDOPA/LEVODOPA 25/100MG TAB PO SCH ×3 (08:37→22:09)
[2022-11-08] MEDS: FEXOFENADINE HCL 180 MG TAB PO SCH (08:37)
[2022-11-08] MEDS: PANTOprazole 40 MG TAB PO SCH (08:37)
[2022-11-08] MEDS: FLUTICASONE FUROATE 100MCG 14 PUFFS/INHALER INH SCH (08:38)
[2022-11-08] MEDS: UMECLIDINIUM/VILANTEROL 62.5/25MCG 7 PUFFS/INHALER INH SCH (08:38)
[2022-11-08] MEDS: SENNA 8.6 MG TAB PO SCH (08:39)
[2022-11-08] MEDS: FINASTERIDE 5 MG TAB PO SCH (08:39)
[2022-11-08] MEDS: POLYETHYLENE (MIRALAX) 17 GM PACK PO SCH ×2 (08:39→22:06)
[2022-11-08] MEDS: LANTUS PER UNIT CHARGE SQ SCH ×2 (08:49→22:46)
[2022-11-08] MEDS: INSULIN ASPART PER UNIT CHARGE SC SCH ×4 (08:49→22:46)
[2022-11-08 08:56] LABS: BUN Creatinine Ratio 21.6 (10-20); Calcium 8.5 mg/dl (8.6-10.3); Creatinine Clr Calc Pharmacy 65.2 ml/min; Est GFR (Non-African American) 60.4 ml/min; Potassium 3.8 mmol/L (3.5-5.1)
[2022-11-08 09:01] LABS: INR 2.8 (0.9-1.1); Prothrombin Time 28.7 Seconds (9.0-12.0)
[2022-11-08] MEDS ORDERED: WARFARIN SOD 7.5 MG TAB PO SCH (16:00)
[2022-11-08] MEDS: AMOXICILLIN/CLAVULANATE 875 MG TAB PO SCH (16:35)
[2022-11-08] MEDS: LACTULOSE SYRUP 20 GM/30 ML UDC PO SCH (22:07)
[2022-11-08] MEDS: DICLOFENAC SOD 1% GEL 100 GM TUBE EXT PRN (22:08)
[2022-11-08] MEDS: allopurinoL 100 MG TAB PO SCH (22:09)
[2022-11-08] MEDS: ATORVASTATIN 40 MG TAB PO SCH (22:09)
--- NOTE | 2022-11-09 07:42 | Hospitalist Progress Note ---
Date of Service November 09, 2022 Assessment & Plan (1) Pyelonephritis: Plan: Check AM CBC and anticipate discharge tomorrow Urine culture + for Klebsiella pneumoniae susceptible to Augmentin Transition to PO Augmentin 875mg/125mg x 7-10 days total Labs are significant for mild leukopenia with WBC, lymphopenia Lactate improving since admission CT of the abdomen was performed which shows presence of stable left sided nephrolithiasis, no ureteral stones or hydronephrosis. Mild bilateral perinephric edema is present and unchanged - likely chronic. No additional findings involving the right kidney. Zofran as needed for nausea Tylenol and Tramadol as needed for pain PT/OT cleared for discharge home (2) Chronic kidney disease, stage 3a: Plan: Patient with CKD -Recieved 3L NSS since admission -BUN, Creatinine improving Cr 1.23 from 1.57 today -Avoid nephrotoxic agents -Renal dosing where needed for CrCl of 48 (3) Mechanical heart valve present: Plan: Patient on coumadin therapy. INR=2.7 this AM -Continue Coumadin 7.5mg po q nightly on ///Sat/Sun -Coumadin 5mg po nightly on T/R (4) Diabetes: Plan: Patient with DM. Last UniB8Z=6.7 on 08/24/22 -Continue Lantus - will reduce to 15u BID -ISS -Goal blood sugar 110-140 -BS at goal this AM (5) Seizure disorder: Plan: Chronic -Continue Keppra, Topamax and Gabapentin (6) Rheumatoid arthritis: Plan: Chronic. Stable -Continue Prednisone 5mg po daily (7) CAD (coronary artery disease): Plan: Chronic. Patient denies chest pain or shortness of breath. Troponin is WNL. No ischemic changes present on EKG. -Continue ASA 81mg po daily -Atorvastatin 40mg po qHS (8) Parkinsonism: Plan: Chronic. Stable -Continue Carbidopa/Levodopa at home dose CC diet as tolerated Ppx - on Coumadin, continue, monitor INR Code - Full per discussion with patient Dispo - Admit to medical Admission and Anticipated Discharge Date Admission Date: November 06, 2022 Supervising Physician Co-Signing Physician Notes ATTESTATION I also saw the patient and confirmed peña portions of the history and exam. I agree with the impression and plan in the resident documentation, and as summarized below. Patient noted some right-sided flank pain this morning which was alleviated, temporarily, with a dose of tramadol. This continued later in the afternoon, again medicated with tramadol. While he was looking forward to discharge, will hold off given his pain today. EXAM 115/67, 70, 18, 36.6 He has been afebrile since admission Heart regular rate Lungs clear with nonlabored respirations Location of pain is right flank, not quite CVA area. Seems to worsen with movement, I suspect this may simply be musculoskeletal DATA Labs Hemoglobin 10.4, platelet count 160 INR 2.6 Sodium 141, potassium 3.9, BUN 21, creatinine 1.17 Micro Urine culture collected 11/06/2022 is showing Klebsiella pneumoniae, sensitive to all except nitrofurantoin Blood cultures collected 11/06/2022 showed no growth at 48 hours IMPRESSION & PLAN Pyelonephritis Generally improving; PT evaluation clears him for return home Onset of musculoskeletal pain today -and subsequent sedation post medication - mixed discharge today difficult Do not think pain represents worsening of infection; will monitor overnight, CBC, BMP in a.m. Will medicate first with nonsedating medications if required Additional per resident documentation Subjective 77 yo male PMHx CAD, CKD, DM, Gout, HLP, Seizures, RA/Polymyositis on daily prednisone, mechanical aortic valve on coumadin for anticoagulation from [facility] outpatient clinic with UTI and pyelonephritis Reports cloudy urine for 8-9 days. Subsequently, developed dysuria, difficulty with urination (straining), malaise, poor appetite, and decreased oral intake. Began to develop intermittent R flank pain. Developed suprapubic tenderness. Additional + ROS generalized weakness, poor ambulation Additonal - ROS fever, CP, cough, SOB, vomiting, diarrhea Switched to PO augmentin yesterday. Tolerating well. Awaiting PT/OT eval for dispo. Eating breakfast when seen this morning. States he is feeling much better. Had some flank pain this AM Review of Systems Review of Systems: reviewed, as above Physical Exam Physical Exam: General: patient resting comfortably, NAD, chronically ill appearing, AA&O x 4, answers questions appropriately and follows commands. Skin: warm, dry, intact, no rashes or lesions HEENT: NC/AT, PERRL, EOMI, anicteric sclera, conjunctiva without injection, external ear normal to inspection and nontender, nares patent, moist mucus membranes, dentition intact, no oropharyngeal lesions, neck supple, trachea midline, no LAD, no thyromegaly, no JVD Heart: +S1/S2, regular, no m/r/g + mechanical valve click Lungs: equal air entry bilaterally, no rales/rhonchi/wheezes +R flank TTP Abd: +BS, soft, non focal R-sided TTP, no masses/organomegaly/ascites Ext: warm, 2+ pulses in UE/LE bilaterally, no clubbing/cyanosis or edema Neuro: nonfocal, patient AA&O x 4, speech intact, no facial droop, moving all extremities on command with equal strength 5/5 Results & Data Results & Data Vital Signs (Past 12 Hours) Vital Signs Temp Pulse Resp BP Pulse Ox O2 Del Method 11/09/22 07:15 36.5 C 70 18 118/70 95 Room Air 11/08/22 20:00 Room Air 11/08/22 20:42 36.8 C 67 16 128/74 95 Room Air Laboratory Results Abnormal lab results 11/08/22 11/08/22 11/08/22 Range/Units 08:00 08:00 08:00 WBC 3.34 L (4.8-10.8) K/ul RBC 3.59 L (4.70-6.10) M/uL Hgb 9.7 L (14.0-18.0) g/dl Hct 30.8 L (42.0-52.0) % MCHC 31.5 L (32.0-36.0) g/dL RDW Std Deviation 47.5 H (36.4-46.3) fL RDW Coeff of Lianne 15.1 H (11.5-14.5) % Lymph # (Auto) 0.96 L (1.2-3.4) K/uL PT 28.7 H (9.0-12.0) Seconds INR 2.8 H (0.9-1.1) Chloride 111 H (98-107) mmol/L BUN 25 H (6-23) mg/dl BUN/Creatinine Ratio 21.6 H (10-20) Glucose 123 H (70-99(Fasting)) mg/dl POC Glucose (70-99) mg/dl Calcium 8.5 L (8.6-10.3) mg/dl 11/08/22 11/08/22 11/08/22 Range/Units 08:11 12:03 17:01 WBC (4.8-10.8) K/ul RBC (4.70-6.10) M/uL Hgb (14.0-18.0) g/dl Hct (42.0-52.0) % MCHC (32.0-36.0) g/dL RDW Std Deviation (36.4-46.3) fL RDW Coeff of Lianne (11.5-14.5) % Lymph # (Auto) (1.2-3.4) K/uL PT (9.0-12.0) Seconds INR (0.9-1.1) Chloride (98-107) mmol/L BUN (6-23) mg/dl BUN/Creatinine Ratio (10-20) Glucose (70-99(Fasting)) mg/dl POC Glucose 127 H 172 H 175 H (70-99) mg/dl Calcium (8.6-10.3) mg/dl 11/08/22 Range/Units 20:38 WBC (4.8-10.8) K/ul RBC (4.70-6.10) M/uL Hgb (14.0-18.0) g/dl Hct (42.0-52.0) % MCHC (32.0-36.0) g/dL RDW Std Deviation (36.4-46.3) fL RDW Coeff of Lianne (11.5-14.5) % Lymph # (Auto) (1.2-3.4) K/uL PT (9.0-12.0) Seconds INR (0.9-1.1) Chloride (98-107) mmol/L BUN (6-23) mg/dl BUN/Creatinine Ratio (10-20) Glucose (70-99(Fasting)) mg/dl POC Glucose 185 H (70-99) mg/dl Calcium (8.6-10.3) mg/dl Resident Activity Tracking Resident Involvement: Resident Care Provided Care Provided: Adult Hospital Medicine (4) Diabetes Diabetes mellitus complication detail: with polyneuropathy Diabetes mellitus complication status: with neurologic complications Diabetes mellitus alf insulin use: with alf use Diabetes mellitus type: type 2 Qualified Code(s): E11.42 - Type 2 diabetes mellitus with diabetic polyneuropathy; Z79.4 - long-term (current) use of insulin (6) Rheumatoid arthritis Rheumatoid arthritis location: unspecified site Rheumatoid factor presence: unspecified presence Qualified Code(s): M06.9 - Rheumatoid arthritis, unspecified (7) CAD (coronary artery disease) Associated angina: without angina Coronary Disease-Associated Artery/Lesion type: [place] artery [place] vs. transplanted heart: [place] heart Qualified Code(s): I25.10 - Atherosclerotic heart disease of [place] coronary artery without angina pectoris
[2022-11-09 08:14] LABS: Basophils # (auto) 0.01 K/uL (0-0.2); Basophils % (auto) 0.3 %; Eosinophils % (auto) 5.1 %; Hematocrit (blood only) 32.8 % (42.0-52.0); Hemoglobin 10.4 g/dl (14.0-18.0); Immature Granulocytes # (auto) 0.02 K/uL (0.01-0.20); Immature Granulocytes % (auto) 0.5 %; Lymphocytes # (auto) 0.83 K/uL (1.2-3.4); Lymphocytes % (auto) 21.1 %; Mean Corpuscular Hemoglobin 27.2 pg (25.0-34.0); Mean Corpuscular Hgb Conc 31.7 g/dL (32.0-36.0); Mean Corpuscular Volume 85.6 fL (80.0-100.0); Mean Platelet Volume 10.3 fL (9.4-12.4); Monocytes # (auto) 0.22 K/uL (0.11-0.59); Monocytes % (auto) 5.6 %; Neutrophils # (auto) 2.66 K/uL (1.40-6.50); Neutrophils % (auto) 67.4 %; Platelet Count 160 K/uL (130-400); RDW Standard Deviation 46.7 fL (36.4-46.3); Red Blood Count 3.83 M/uL (4.70-6.10); White Blood Count 3.94 K/ul (4.8-10.8)
[2022-11-09 08:39] LABS: BUN Creatinine Ratio 17.9 (10-20); Calcium 8.9 mg/dl (8.6-10.3); Creatinine Clr Calc Pharmacy 64.7 ml/min; Est GFR (African American) 69.3 ml/min; Est GFR (Non-African American) 59.8 ml/min; Potassium 3.9 mmol/L (3.5-5.1)
[2022-11-09 08:53] LABS: INR 2.6 (0.9-1.1); Prothrombin Time 26.4 Seconds (9.0-12.0)
[2022-11-09] MEDS: TOPIRAMATE 100 MG TAB PO SCH ×2 (09:38→20:38)
[2022-11-09] MEDS: PANTOprazole 40 MG TAB PO SCH (09:39)
[2022-11-09] MEDS: POLYETHYLENE (MIRALAX) 17 GM PACK PO SCH ×2 (09:39→20:36)
[2022-11-09] MEDS: CARBIDOPA/LEVODOPA 25/100MG TAB PO SCH ×3 (09:39→20:39)
[2022-11-09] MEDS: levETIRAcetam 500 MG TAB PO SCH ×2 (09:39→20:37)
[2022-11-09] MEDS: AMOXICILLIN/CLAVULANATE 875 MG TAB PO SCH ×2 (09:40→18:24)
[2022-11-09] MEDS: FINASTERIDE 5 MG TAB PO SCH (09:40)
[2022-11-09] MEDS: predniSONE 5 MG TAB PO SCH (09:40)
[2022-11-09] MEDS: FEXOFENADINE HCL 180 MG TAB PO SCH (09:40)
[2022-11-09] MEDS: SENNA 8.6 MG TAB PO SCH (09:40)
[2022-11-09] MEDS: ASPIRIN 81 MG ECTAB PO SCH (09:40)
[2022-11-09] MEDS: UMECLIDINIUM/VILANTEROL 62.5/25MCG 7 PUFFS/INHALER INH SCH (09:41)
[2022-11-09] MEDS: GABAPENTIN 300 MG CAP PO SCH ×2 (09:41→20:39)
[2022-11-09] MEDS: FLUTICASONE FUROATE 100MCG 14 PUFFS/INHALER INH SCH (09:42)
[2022-11-09] MEDS: INSULIN ASPART PER UNIT CHARGE SC SCH ×4 (09:50→20:39)
[2022-11-09] MEDS: LANTUS PER UNIT CHARGE SQ SCH ×2 (09:51→20:40)
[2022-11-09] MEDS: traMADol HCL 50 MG TABLET PO PRN (11:17)
--- NOTE | 2022-11-09 17:00 | Discharge Summary ---
Date of Service November 09, 2022 Admission HPI Per Admitting Provider Xavi Bradford is a 77yo male with history of CAD, CKD, DM, Gout, HLP, Seizures, RA/Polymyositis on Prednisone daily and mechanical aortic valve on Coumadin anticoagulation presenting from outpatient clinic with UTI and concern for pyelonephritis. Patient reports having cloudy urine for the last 8-9 days. Several days ago he developed dysuria, nausea, malaise, poor appetite and decreased oral intake. He was having some difficulty urinating - felt like he needed to strain to urinate. This morning he developed severe pain in the right flank which lasted about 20 minutes. He continued to have right flank pain throughout the day. He also developed some suprapubic tenderness. He was seen in clinic today and was subsequently sent to the ER for additional workup and treatment. Patient additionally reports chills and generalized weakness with difficulty ambulating. He denies fever, chest pain, cough, SOB, vomiting or diarrhea. No additional complaints at this time. In the ER he is afebrile, HD stable and non-toxic in appearance ER Course: Ceftriaxone 1gm NSS x 2L Admission Exam (Per Admitting) Constitutional General: chronically ill appearing male patient resting comfortably, NAD, non- toxic in appearance, AA&O x 4 Skin: warm, dry, intact, no rashes or lesions HEENT: NC/AT, PERRL, EOMI, anicteric sclera, conjunctiva without injection, external ear normal to inspection and nontender, nares patent, moist mucus membranes, dentition intact, no oropharyngeal lesions, neck supple, trachea midline, no LAD, no thyromegaly, no JVD Heart: +S1/S2, regular, audible mid-systolic mechanical click, no m/r/g Lungs: equal air entry bilaterally, no rales/rhonchi/wheezes Abd: +BS, soft, ND, suprapubic tenderness, no rebound/peritonitis, +right CVA tenderness with light percussion Ext: warm, 2+ pulses in UE/LE bilaterally, no clubbing/cyanosis, 1+ pitting edema of bilateral LE Neuro: nonfocal, patient AA&O x 4, speech intact, no facial droop, moving all extremities on command with equal strength 5/[address] of the abdomen was performed which shows presence of stable left sided nephrolithiasis, no ureteral stones or hydronephrosis. Mild bilateral perinephric edema is present and unchanged - likely chronic. No additional findings involving the right kidney. Discharge Data Consultations 11/06/22 19:03 ED Decision to Admit Stat Hospital Course (1) Pyelonephritis: Urine culture + for Klebsiella pneumoniae susceptible to Augmentin Transition to PO Augmentin 875mg/125mg x 7-10 days total Zofran as needed for nausea Tylenol and Tramadol as needed for pain PT/OT cleared for discharge home (2) Chronic kidney disease, stage 3a: (3) Mechanical heart valve present: (4) Diabetes: (5) Seizure disorder: (6) Rheumatoid arthritis: (7) CAD (coronary artery disease): (8) Parkinsonism: Anna Bradford was admitted and diagnosed with acute pyelonephritis. Urine cultures were positive for klebsiella pneumoniae. He was transitioned from iv ceftriaxone to PO Augmentin 875mg/125mg for an additional 7 days after disc harge. His other co-morbid conditions were managed with his home regimen. Labs trended and lytes repleted as necessary. Discharge Instructions Resume activity as tolerated, follow up with PCP Dr. Tan Hammond Supervising Physician Co-Signing Physician Notes I personally examined the patient and verified all peña points of history and exam, discussed case, and agree with decision making and plan documented by Dr. Squires. Patient discharged to complete augmentin therapy for UTI. Right flank pain improved prior to discharge, patient provided with small prescription of ketorolac for pain (cannot tolerate opioids) and was recommended to remain well hydrated. He has follow-up with PCP, recommend repeat metabolic panel on hospital follow-up. Resident Activity Tracking Resident Involvement: Resident Care Provided Care Provided: Adult Hospital Medicine
[2022-11-09] MEDS: WARFARIN SOD 5 MG TAB PO SCH (18:24)
[2022-11-09] MEDS: LACTULOSE SYRUP 20 GM/30 ML UDC PO SCH (20:37)
[2022-11-09] MEDS: allopurinoL 100 MG TAB PO SCH (20:38)
[2022-11-09] MEDS: ATORVASTATIN 40 MG TAB PO SCH (20:38)
--- NOTE | 2022-11-10 07:16 | Hospitalist Progress Note ---
Date of Service November 10, 2022 Assessment & Plan (1) Pyelonephritis: Plan: Urine culture + for Klebsiella pneumoniae susceptible to Augmentin Transition to PO Augmentin 875mg/125mg x 7-10 days total Zofran as needed for nausea Tylenol as needed for pain PT/OT cleared for discharge home (2) Chronic kidney disease, stage 3a: Plan: Patient with CKD -Recieved 3L NSS since admission -BUN, Creatinine improving Cr 1.23 from 1.57 today -Avoid nephrotoxic agents -Renal dosing where needed for CrCl of 48 (3) Mechanical heart valve present: Plan: Patient on coumadin therapy. INR=2.7 this AM -Continue Coumadin 7.5mg po q nightly on M//F/Sat/Sun -Coumadin 5mg po nightly on T/R (4) Diabetes: Plan: Patient with DM. Last SrwE0B=3.7 on 08/24/22 -Continue Lantus - will reduce to 15u BID -ISS -Goal blood sugar 110-140 -BS at goal this AM (5) Seizure disorder: Plan: Chronic -Continue Keppra, Topamax and Gabapentin (6) Rheumatoid arthritis: Plan: Chronic. Stable -Continue Prednisone 5mg po daily (7) CAD (coronary artery disease): Plan: Chronic. Patient denies chest pain or shortness of breath. Troponin is WNL. No ischemic changes present on EKG. -Continue ASA 81mg po daily -Atorvastatin 40mg po qHS (8) Parkinsonism: Plan: Chronic. Stable -Continue Carbidopa/Levodopa at home dose CC diet as tolerated Ppx - on Coumadin, continue, monitor INR Code - Full per discussion with patient Admission and Anticipated Discharge Date Admission Date: November 06, 2022 Supervising Physician Co-Signing Physician Notes I personally examined the patient and verified all peña points of history and exam, discussed case, and agree with decision making and plan documented by Dr. Squires. Subjective 77 yo male PMHx CAD, CKD, DM, Gout, HLP, Seizures, RA/Polymyositis on daily prednisone, mechanical aortic valve on coumadin for anticoagulation from [facility] outpatient clinic with UTI and pyelonephritis Reports cloudy urine for 8-9 days. Subsequently, developed dysuria, difficulty with urination (straining), malaise, poor appetite, and decreased oral intake. Began to develop intermittent R flank pain. Developed suprapubic tenderness. Additional + ROS generalized weakness, poor ambulation Additonal - ROS fever, CP, cough, SOB, vomiting, diarrhea Switched to PO augmentin yesterday. Tolerating well. Awaiting PT/OT eval for dispo. Eating breakfast when seen this morning. States he is feeling much better. Had some flank pain this AM Review of Systems Review of Systems: reviewed, see HPI Physical Exam Physical Exam: General: patient resting comfortably, NAD, chronically ill appearing, AA&O x 4, answers questions appropriately and follows commands. Skin: warm, dry, intact, no rashes or lesions HEENT: NC/AT, PERRL, EOMI, anicteric sclera, conjunctiva without injection, external ear normal to inspection and nontender, nares patent, moist mucus membranes, dentition intact, no oropharyngeal lesions, neck supple, trachea midline, no LAD, no thyromegaly, no JVD Heart: +S1/S2, regular, no m/r/g + mechanical valve click Lungs: equal air entry bilaterally, no rales/rhonchi/wheezes +R flank TTP Abd: +BS, soft, non focal R-sided TTP, no masses/organomegaly/ascites Ext: warm, 2+ pulses in UE/LE bilaterally, no clubbing/cyanosis or edema Neuro: nonfocal, patient AA&O x 4, speech intact, no facial droop, moving all extremities on command with equal strength 5/5 Results & Data Results & Data Vital Signs (Past 12 Hours) Vital Signs Temp Pulse Resp BP Pulse Ox O2 Del Method O2 Flow Rate 11/09/22 19:20 Nasal Cannula 2 11/09/22 20:26 36.4 C L 71 16 158/76 H 97 Room Air Laboratory Results Abnormal lab results 11/09/22 11/09/22 11/09/22 Range/Units 07:30 07:30 07:30 WBC 3.94 L (4.8-10.8) K/ul RBC 3.83 L (4.70-6.10) M/uL Hgb 10.4 L (14.0-18.0) g/dl Hct 32.8 L (42.0-52.0) % MCHC 31.7 L (32.0-36.0) g/dL RDW Std Deviation 46.7 H (36.4-46.3) fL RDW Coeff of Lianne 15.0 H (11.5-14.5) % Lymph # (Auto) 0.83 L (1.2-3.4) K/uL PT 26.4 H (9.0-12.0) Seconds INR 2.6 H (0.9-1.1) Chloride 112 H (98-107) mmol/L Glucose 112 H (70-99(Fasting)) mg/dl POC Glucose (70-99) mg/dl 11/09/22 11/09/22 11/09/22 Range/Units 08:14 12:06 17:13 WBC (4.8-10.8) K/ul RBC (4.70-6.10) M/uL Hgb (14.0-18.0) g/dl Hct (42.0-52.0) % MCHC (32.0-36.0) g/dL RDW Std Deviation (36.4-46.3) fL RDW Coeff of Lianne (11.5-14.5) % Lymph # (Auto) (1.2-3.4) K/uL PT (9.0-12.0) Seconds INR (0.9-1.1) Chloride (98-107) mmol/L Glucose (70-99(Fasting)) mg/dl POC Glucose 109 H 184 H 188 H (70-99) mg/dl 11/09/22 Range/Units 20:25 WBC (4.8-10.8) K/ul RBC (4.70-6.10) M/uL Hgb (14.0-18.0) g/dl Hct (42.0-52.0) % MCHC (32.0-36.0) g/dL RDW Std Deviation (36.4-46.3) fL RDW Coeff of Lianne (11.5-14.5) % Lymph # (Auto) (1.2-3.4) K/uL PT (9.0-12.0) Seconds INR (0.9-1.1) Chloride (98-107) mmol/L Glucose (70-99(Fasting)) mg/dl POC Glucose 214 H (70-99) mg/dl Resident Activity Tracking Resident Involvement: Resident Care Provided Care Provided: Adult Hospital Medicine (4) Diabetes Diabetes mellitus complication detail: with polyneuropathy Diabetes mellitus complication status: with neurologic complications Diabetes mellitus mcc insulin use: with mcc use Diabetes mellitus type: type 2 Qualified Code(s): E11.42 - Type 2 diabetes mellitus with diabetic polyneuropathy; Z79.4 - terminologist (current) use of insulin (6) Rheumatoid arthritis Rheumatoid arthritis location: unspecified site Rheumatoid factor presence: unspecified presence Qualified Code(s): M06.9 - Rheumatoid arthritis, unspecified (7) CAD (coronary artery disease) Associated angina: without angina Coronary Disease-Associated Artery/Lesion type: [place] artery [place] vs. transplanted heart: [place] heart Qualified Code(s): I25.10 - Atherosclerotic heart disease of [place] coronary artery without angina pectoris
[2022-11-10] MEDS: UMECLIDINIUM/VILANTEROL 62.5/25MCG 7 PUFFS/INHALER INH SCH (08:38)
[2022-11-10] MEDS: FLUTICASONE FUROATE 100MCG 14 PUFFS/INHALER INH SCH (08:38)
[2022-11-10] MEDS: POLYETHYLENE (MIRALAX) 17 GM PACK PO SCH (08:40)
[2022-11-10] MEDS: ASPIRIN 81 MG ECTAB PO SCH (08:40)
[2022-11-10] MEDS: AMOXICILLIN/CLAVULANATE 875 MG TAB PO SCH (08:40)
[2022-11-10] MEDS: predniSONE 5 MG TAB PO SCH (08:41)
[2022-11-10] MEDS: CARBIDOPA/LEVODOPA 25/100MG TAB PO SCH ×2 (08:41→14:23)
[2022-11-10] MEDS: FINASTERIDE 5 MG TAB PO SCH (08:41)
[2022-11-10] MEDS: levETIRAcetam 500 MG TAB PO SCH (08:41)
[2022-11-10] MEDS: TOPIRAMATE 100 MG TAB PO SCH (08:41)
[2022-11-10] MEDS: FEXOFENADINE HCL 180 MG TAB PO SCH (08:41)
[2022-11-10] MEDS: PANTOprazole 40 MG TAB PO SCH (08:41)
[2022-11-10] MEDS: SENNA 8.6 MG TAB PO SCH (08:41)
[2022-11-10] MEDS: GABAPENTIN 300 MG CAP PO SCH (08:41)
[2022-11-10 08:44] LABS: Basophils # (auto) 0.01 K/uL (0-0.2); Basophils % (auto) 0.3 %; Eosinophils # (auto) 0.25 K/uL (0-0.50); Eosinophils % (auto) 6.8 %; Hematocrit (blood only) 32.5 % (42.0-52.0); Hemoglobin 10.4 g/dl (14.0-18.0); Immature Granulocytes # (auto) 0.03 K/uL (0.01-0.20); Immature Granulocytes % (auto) 0.8 %; Lymphocytes # (auto) 0.97 K/uL (1.2-3.4); Lymphocytes % (auto) 26.2 %; Mean Corpuscular Volume 84.4 fL (80.0-100.0); Mean Platelet Volume 9.6 fL (9.4-12.4); Monocytes # (auto) 0.28 K/uL (0.11-0.59); Monocytes % (auto) 7.6 %; Neutrophils # (auto) 2.16 K/uL (1.40-6.50); Neutrophils % (auto) 58.3 %; Platelet Count 148 K/uL (130-400); RDW Standard Deviation 46.1 fL (36.4-46.3); Red Blood Count 3.85 M/uL (4.70-6.10)
[2022-11-10] MEDS: INSULIN ASPART PER UNIT CHARGE SC SCH ×2 (08:47→12:55)
[2022-11-10] MEDS: LANTUS PER UNIT CHARGE SQ SCH (08:48)
[2022-11-10 09:10] LABS: INR 2.3 (0.9-1.1); Prothrombin Time 23.5 Seconds (9.0-12.0)
[2022-11-10] MEDS ORDERED: KETOROLAC TROMETHAMINE 15 MG/ML VIAL IV ONE (11:05)
[2022-11-10] MEDS ORDERED: LIDOCAINE 4% CREAM 15 GM TUBE EXT PRN (11:06)
[2022-11-10] MEDS ORDERED: LIDOCAINE 5% 1 PATCH TD STA (11:10)
== END 2022-11-10 16:45 | disposition home or self-care (01) | DRG 690 ==
LOC: ED 16:40 → 3N 19:25 → SUATTDRO 19:25 → 3N 21:50

== ENCOUNTER 2022-12-09 13:20 | Inpatient (IN) ==
[2022-12-09] MEDS ORDERED: LORazepam 2 MG/1 ML VIAL ONE (13:57)
[2022-12-09] MEDS ORDERED: LORazepam 2 MG/1 ML VIAL IV STA ×2 (14:03→15:49)
[2022-12-09] MEDS ORDERED: levETIRAcetam 1,000 MG in 0.9 % SODIUM CHLORIDE 100 ML IV STA (14:03)
--- NOTE | 2022-12-09 14:06 | Emergency Department Note ---
Impression & Plan Seizure-like activity ADMIT ED Provider Note HPI: The patient is a 77-year-old gentleman who presents to the emergency department with a chief complaint of fall. I was called to the room by the bedside RN as the patient began to exhibit seizure-like activity shortly after he arrived. On my initial assessment the patient is exhibiting some shaking of the right upper extremity. Patient is hemodynamically stable on arrival, no outward evidence of trauma is noted, patient is unable to provide me with any initial history on my evaluation ROS: - Per HPI Differential Diagnosis: Intracranial injury to include intracranial hemorrhage, subdural hematoma, epidural hematoma, skull fracture, seizure, pseudoseizure, amongst other potential pathologies. *Outpatient medications and allergy history reviewed. *Pertinent external medical records reviewed. PE: General: Patient is not responsive to verbal or painful stimuli HEENT: Normocephalic, trachea midline Eyes: Pupils are reactive to light bilaterally Pulmonary: Clear to auscultation bilaterally, no wheezing Cardio: Regular rate and rhythm GI: Abdomen is soft to palpation : No suprapubic tenderness MSK: No evidence of trauma or malformation of the extremities, no edema Skin: No evidence of rash Neuro: Patient is not responding to verbal or painful stimuli, exhibits seizure- like activity with tonic-clonic movements of the right upper Psychiatric: N/A exploration engineer: (As interpreted by myself): - An order was placed for continuous cardiac monitoring - Patient was noted to be in sinus rhythm with a rate of 70 EKG: (As interpreted by myself): 5 rate: 67 Rhythm: Normal sinus rhythm Intervals: Within normal limits ST changes: No ST elevation Time: 1402 Interventions provided in ED: -IV Ativan, IV Keppra Medical Decision Making: Shortly after the patient arrived IV was established and lab work ordered, patient had a seizure-like episode that was witnessed by myself and bedside nurses, this responded well to 1 mg of Ativan and the patient became more alert. He does have a documented history of seizure-like activity and on review of previous notes by neurology there is concern that these may represent no nepileptic events. When the patient became more alert, he tells me he came in today because he ivania eves he fell down at home. He does not remember exactly what happened, he states he remembers bending over to pick up operator a pot and then remembers waking up on the floor. Patient states he then utilized his life alert button to get help and was brought to the ED via EMS. Lab work shows mild leukopenia at 4.58, hemoglobin is stable at 10.8, platelet count is normal, CMP does not show any critical findings, BUN slightly elevated at 30, lactic acid is noted to be within normal limits. CT imaging of the head without contrast does not show any evidence of any acute intracranial process. Urinalysis is negative. Patient was loaded with IV Keppra and I did send for Keppra levels as he is currently on antiepileptics/Keppra. While the patient was awaiting the above results he did have a second episode of seizure-like activity that responded again well to 1 mg of Ativan. Upon review of the patient's outpatient records and with quick response/return to baseline after his second event night do have concern that these may represent nonepileptic events. I did discuss this with the patient and he stated his preference for admission at this time as he stated he felt too weak to go home. He did then have a third event that resolved without Ativan. Each of these events lasted approximately 1 to 2 minutes. I discussed the patient's presentation with the on-call hospitalist, Dr. Pringle, who is in agreement to admit the patient for further management. Patient is currently in an independent living facility and does not have daily care. I think this may be the next logical step for the patient and I think he would benefit from further evaluation and PT/OT. Patient was in agreement for admission and he was placed for admission in stable condition. Consultants: Hospitalist, Dr. Pringle Disposition discussion held by myself with: Patient Diagnosis: 1. Seizure-like activity, acute 2. Unwitnessed fall 3. Leukopenia, chronic 4. Anemia, chronic 5. Elevated BUN Disposition: ADMIT Luis Vazquez DO Emergency Medicine Past Med/Surg History Medical History (Updated 12/09/22 @ 18:19 by Jone Pringle MD) SHYANN (acute kidney injury) Anemia history of blood transfusion, 2020 Anxiety Aortic ectasia, thoracic Aspiration pneumonia hx of--per pt was due to pain medications Asthma inhaler daily and prn CAD (coronary artery disease) follows with Dr. 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 inhaler daily and prn and uses 2L N/C at hs Kidney stones Migraine Neurogenic claudication due to lumbar spinal stenosis On home oxygen therapy 2L at hs Pancytopenia Parkinsonism per pt has a difficulty swallowing, states certain foods can be difficult to eat Pneumonia hx of, per pt last admission @ [facility] was 05/2022 Polymyositis Prostate cancer radiation Pyelonephritis Rheumatoid arthritis Shortness of breath per pt on with exertion Somatic dysfunction of cervical region Stroke-like symptom 12/2019, w/ blurry vision and dysarthria. mild R sided wkness. attending outpatient physical therapy w/ good improvement in strength (5+/5 strength of all 4 extremities as of 05/28/20) Supratherapeutic INR Thoracic ascending aortic aneurysm s/p repair TIA (transient ischemic attack) 2019--no deficits--follows with Dr. Sheikh Urinary tract infection Surgical History H/O hernia repair History of aortic valve replacement 2003 @ [facility] in [place], [place] History of appendectomy History of bilateral cataract extraction History of cardiac cath x3--2018 @ [facility] with 1 stent placed/2019 @ [facility]/last 04/2021 @ [facility] History of cholecystectomy History of colonoscopy History of esophagogastroduodenoscopy (EGD) History of fusion of cervical spine normal ROM History of gastric bypass 2007--lap band History of heart artery stent x1--2017 @ [facility] History of lumbar spinal fusion History of lung biopsy 2019 History of partial nephrectomy 1986 on right kidney History of prostate biopsy malignant History of tonsillectomy History of tooth extraction all upper teeth removed Family History Mother , age 87 of pulmonary issues Rheumatoid arthritis Father , in his mid 80s of a stroke Stroke Other Coronary heart disease No family history of adverse response to anesthesia Social History Smoking Status: Never smoker Second Hand Exposure: No; Do You Dip or Chew Tobacco: No; Hx Alcohol Use: No Hx Substance Use: No Preferred Language: Spanish Communication Ability: Effective Hearing Ability: Hard of Hearing Director Of Employee Development Required: No Beliefs That Will Affect Care: None marital status: / Current Living Situation: Personal Care Facility Current Living Situation Comment: [place] at 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 How many Children do You have: 2 How many Children do You have Comment: son Feels Safe at Home: Yes Assistive Devices: Walker Allergies Allergies Allergy/AdvReac Type Severity Reaction Status Date / Time bee venom protein (honey bee) Allergy Severe anaphylaxis Verified 12/09/22 17:08 Iodinated Contrast Media Allergy Severe Anaphylaxis Verified 12/09/22 17:08 shellfish derived Allergy Severe Anaphylaxis Verified 12/09/22 17:08 doxazosin Allergy Intermediate Rash Verified 12/09/22 17:08 tamsulosin [From Flomax] Allergy Intermediate Itching Verified 12/09/22 17:08 Tetanus Vaccines and Toxoid Allergy Unknown Unknown Verified 12/09/22 17:08 lamotrigine AdvReac Intermediate Confusion Verified 12/09/22 17:08 oxycodone [From Percocet] AdvReac Intermediate nausea/vomi Verified 12/09/22 17:08 ting propoxyphene [From Darvon] AdvReac Intermediate nausea/vomi Verified 12/09/22 17:08 ting Home Meds Home Medications Medication Instructions Recorded Confirmed atorvastatin 40 mg tablet 40 mg PO HS 05/28/20 12/09/22 fexofenadine 180 mg tablet 180 mg PO QAM 02/11/21 12/09/22 (Karlee Allergy) allopurinol 100 mg tablet 100 mg PO HS 04/10/21 12/09/22 cholecalciferol (vitamin D3) 50 4,000 unit PO HS 07/14/21 12/09/22 mcg (2,000 unit) capsule (Vitamin D3) insulin glargine 100 unit/mL (3 20 unit subcut BID 07/26/21 12/09/22 mL) subcutaneous pen (Lantus Solostar U-100 Insulin) albuterol sulfate 90 mcg/actuation 2 puff inhalation Q4H PRN 09/27/21 12/09/22 aerosol inhaler (Ventolin HFA) Shortness Of Breath Or Wheezing polyethylene glycol 3350 17 17 g PO BID 10/04/21 12/09/22 gram/dose oral powder (Miralax) furosemide 20 mg tablet 20 mg PO QAM 11/24/21 12/09/22 sennosides 8.6 mg tablet (Senokot) 8.6 mg PO QAM 11/24/21 12/09/22 insulin aspart U-100 100 unit/mL 1 sliding scale dose subcut ACHS 02/26/22 12/09/22 (3 mL) subcutaneous pen (Novolog FlexPen U-100 Insulin aspart) diclofenac sodium 1 % topical gel 2 g topical TID PRN Pain 05/21/22 12/09/22 (Voltaren Arthritis Pain) cyanocobalamin (vitamin B-12) 1,000 mcg PO QAM 08/14/22 12/09/22 1,000 mcg tablet,extended release (Vitamin B-12 ER) gabapentin 300 mg capsule 600 mg PO QAM 08/14/22 12/09/22 magnesium 250 mg tablet 250 mg PO QAM 08/14/22 12/09/22 pantoprazole 20 mg tablet,delayed 20 mg PO QAM 08/14/22 12/09/22 release (Protonix) potassium chloride 20 mEq 20 meq PO HS 08/14/22 12/09/22 tablet,extended release prednisone 5 mg tablet 5 mg PO QAM 08/14/22 12/09/22 gabapentin 300 mg capsule 300 mg PO HS 09/30/22 12/09/22 lactulose 20 gram/30 mL oral 20 g PO PM 09/30/22 12/09/22 solution sodium chloride 0.65 % nasal spray 2 spray intranasal QID PRN DRYNESS 09/30/22 12/09/22 aerosol (Saline Mist) topiramate 100 mg tablet 100 mg PO BID 09/30/22 12/09/22 warfarin 5 mg tablet 5 - 7.5 mg PO DIRECTED 11/06/22 12/09/22 dulaglutide 1.5 mg/0.5 mL 1.5 mg subcut WE 12/09/22 12/09/22 subcutaneous pen injector (Trulicity) ketorolac 10 mg tablet 10 mg PO HS 12/09/22 12/09/22 Previous Rx's Medication Instructions Recorded acetaminophen 325 mg tablet 650 mg PO Q4H PRN pain #30 tabs 04/07/22 fluticasone fur. 100 mcg-umeclid 1 inh inhalation QAM #60 ea 09/06/21 62.5 mcg-vilant 25 mcg inhalat.powder (Trelegy Ellipta) ferrous sulfate 325 mg (65 mg 325 mg PO QAM #30 tabs 05/26/22 iron) tablet,delayed release levetiracetam 500 mg tablet 1,000 mg PO BID #360 tabs 08/03/22 (Keppra) ondansetron 4 mg disintegrating 4 mg PO Q6H PRN nausea and 08/24/22 tablet vomiting #30 tabs tramadol 50 mg tablet 50 mg PO Q6H PRN pain, moderate 08/24/22 #30 tabs calcium polycarbophil 625 mg 625 mg PO QAM #30 tabs 09/14/22 tablet (Fiber (calcium polycarbophil)) carbidopa 25 mg-levodopa 100 mg 1 tab PO TID #270 tabs 11/16/22 tablet (Sinemet) Results & Data (ED) Vital Signs Vital Signs - 24 hr 12/09/22 13:32 12/09/22 13:32 12/09/22 13:32 Temperature 36.5 C 36.5 C Temperature Source Oral Oral Pulse Rate 66 70 Pulse Rate [Apical] 70 Pulse Rhythm Regular Pulse Rhythm [Apical] Regular Pulse Strength Normal Pulse Strength [Apical] Normal Respiratory Rate 17 17 Respiratory Effort / Characteristics Non-Labored Spontaneous Non-Labored Spontaneous Respiratory Depth Normal Normal Blood Pressure 137/78 Blood Pressure [Right Arm] 137/78 Blood Pressure Mean 97 Blood Pressure Mean [Right Arm] 97 Blood Pressure Position Lying Blood Pressure Position [Right Arm] Lying Pulse Oximetry 96 96 Oxygen Delivery Method Room Air Room Air Oxygen Flow Rate Sepsis Recent Fever Within 48 Hours No Sepsis New/Unexplained Change in Mental Status N/A Sepsis Action Taken by Nursing No Action Required 12/09/22 14:37 12/09/22 16:00 12/09/22 17:10 Temperature Temperature Source Pulse Rate 67 Pulse Rate [Apical] 66 Pulse Rhythm Pulse Rhythm [Apical] Regular Pulse Strength Pulse Strength [Apical] Normal Respiratory Rate 16 17 Respiratory Effort / Characteristics Non-Labored Spontaneous Non-Labored Spontaneous Respiratory Depth Normal Normal Blood Pressure Blood Pressure [Right Arm] 131/64 123/73 Blood Pressure Mean Blood Pressure Mean [Right Arm] 86 89 Blood Pressure Position Blood Pressure Position [Right Arm] Lying Pulse Oximetry 96 98 Oxygen Delivery Method Nasal Cannula Room Air Oxygen Flow Rate 2 Sepsis Recent Fever Within 48 Hours Sepsis New/Unexplained Change in Mental Status Sepsis Action Taken by Nursing Laboratory Data 12/09/22 13:30 12/09/22 13:30 Lab Results 12/09/22 12/09/22 12/09/22 Range/Units 13:30 13:30 14:17 WBC 4.58 L (4.8-10.8) K/ul RBC 4.00 L (4.70-6.10) M/uL Hgb 10.8 L (14.0-18.0) g/dl Hct 34.7 L (42.0-52.0) % MCV 86.8 (80.0-100.0) fL MCH 27.0 (25.0-34.0) pg MCHC 31.1 L (32.0-36.0) g/dL RDW Std Deviation 48.6 H (36.4-46.3) fL RDW Coeff of Lianne 15.5 H (11.5-14.5) % Plt Count 161 (130-400) K/uL MPV 10.3 (9.4-12.4) fL Immature Gran % (Auto) 1.3 % Neut % (Auto) 68.9 % Lymph % (Auto) 18.6 % [place] % (Auto) 7.0 % Eos % (Auto) 3.3 % Baso % (Auto) 0.9 % Neut # (Auto) 3.16 (1.40-6.50) K/uL Lymph # (Auto) 0.85 L (1.2-3.4) K/uL [place] # (Auto) 0.32 (0.11-0.59) K/uL Eos # (Auto) 0.15 (0-0.50) K/uL Baso # (Auto) 0.04 (0-0.2) K/uL Immature Gran # (Auto) 0.06 (0.01-0.20) K/uL Sodium 140 (136-145) mmol/L Potassium 4.0 (3.5-5.1) mmol/L Chloride 109 H (98-107) mmol/L Carbon Dioxide 26 (21-32) mmol/L Anion Gap 5 (3-11) BUN 30 H (6-23) mg/dl Creatinine 1.30 (0.6-1.4) mg/dl Est Cr Clr Drug Dosing 58.4 ml/min Est GFR ( Amer) 61.0 ml/min Est GFR (Non-Af Amer) 52.6 ml/min BUN/Creatinine Ratio 23.1 H (10-20) Glucose 122 H (70-99(Fasting)) mg/dl Lactate 1.7 (0.4-2.0) mmol/L Calcium 9.3 (8.6-10.3) mg/dl Total Bilirubin 0.4 (0.2-1.0) mg/dl AST 21 (13-39) U/L ALT 4 L (7-52) U/L Alkaline Phosphatase 72 (34-104) U/L Total Protein 6.4 (6.0-8.3) gm/dl Albumin 3.8 (3.4-5.0) gm/dl Globulin 2.6 (2.5-4.0) gm/dl Albumin/Globulin Ratio 1.5 (0.9-2) Urine Color Urine Appearance (Clear) Urine pH (4.5-7.5) Ur Specific [place] (1.000-1.030) Urine Protein (Negative) Urine Glucose (UA) (Negative) Urine Ketones (Negative) Urine Blood (Negative) Urine Nitrite (Negative) Urine Bilirubin (Negative) Urine Urobilinogen (Negative) Ur Leukocyte Esterase (Negative) 12/09/22 Range/Units 15:04 WBC (4.8-10.8) K/ul RBC (4.70-6.10) M/uL Hgb (14.0-18.0) g/dl Hct (42.0-52.0) % MCV (80.0-100.0) fL MCH (25.0-34.0) pg MCHC (32.0-36.0) g/dL RDW Std Deviation (36.4-46.3) fL RDW Coeff of Lianne (11.5-14.5) % Plt Count (130-400) K/uL MPV (9.4-12.4) fL Immature Gran % (Auto) % Neut % (Auto) % Lymph % (Auto) % [place] % (Auto) % Eos % (Auto) % Baso % (Auto) % Neut # (Auto) (1.40-6.50) K/uL Lymph # (Auto) (1.2-3.4) K/uL [place] # (Auto) (0.11-0.59) K/uL Eos # (Auto) (0-0.50) K/uL Baso # (Auto) (0-0.2) K/uL Immature Gran # (Auto) (0.01-0.20) K/uL Sodium (136-145) mmol/L Potassium (3.5-5.1) mmol/L Chloride (98-107) mmol/L Carbon Dioxide (21-32) mmol/L Anion Gap (3-11) BUN (6-23) mg/dl Creatinine (0.6-1.4) mg/dl Est Cr Clr Drug Dosing ml/min Est GFR ( Amer) ml/min Est GFR (Non-Af Amer) ml/min BUN/Creatinine Ratio (10-20) Glucose (70-99(Fasting)) mg/dl Lactate (0.4-2.0) mmol/L Calcium (8.6-10.3) mg/dl Total Bilirubin (0.2-1.0) mg/dl AST (13-39) U/L ALT (7-52) U/L Alkaline Phosphatase (34-104) U/L Total Protein (6.0-8.3) gm/dl Albumin (3.4-5.0) gm/dl Globulin (2.5-4.0) gm/dl Albumin/Globulin Ratio (0.9-2) Urine Color Yellow Urine Appearance Clear (Clear) Urine pH 7.0 (4.5-7.5) Ur Specific [place] 1.014 (1.000-1.030) Urine Protein Negative (Negative) Urine Glucose (UA) Negative (Negative) Urine Ketones Negative (Negative) Urine Blood Negative (Negative) Urine Nitrite Negative (Negative) Urine Bilirubin Negative (Negative) Urine Urobilinogen Negative (Negative) Ur Leukocyte Esterase Negative (Negative) Administered Medications Discontinued Medications Sodium Chloride (Nss 1000ml) 1,000 mls @ 999 mls/hr IV .Q1H1M KIRSTEN Stop: 12/09/22 15:15 Last Infusion: 12/09/22 15:58 Dose: 0 mls/hr Documented By: Admin: 12/09/22 14:11 Dose: 999 mls/hr Documented By: CURT Levetiracetam 1,000 mg/ Sodium (Chloride) 110 mls @ 440 mls/hr IV NOW STA Stop: 12/09/22 14:17 Last Infusion: 12/09/22 15:26 Dose: 0 mls/hr Documented By: Admin: 12/09/22 14:25 Dose: 440 mls/hr Documented By: CURT Lorazepam (Lorazepam 2 Mg/1 Ml Vial) Confirm Administered Dose 2 mg .ROUTE .STK- MED ONE Stop: 12/09/22 13:58 Last Admin: 12/09/22 14:27 Dose: Not Given Documented By: CURT Lorazepam (Lorazepam 2 Mg/1 Ml Vial) 1 mg IV NOW STA Stop: 12/09/22 14:04 Last Admin: 12/09/22 14:11 Dose: 1 mg Documented By: CURT Lorazepam (Lorazepam 2 Mg/1 Ml Vial) 1 mg IV NOW STA Stop: 12/09/22 15:50 Last Admin: 12/09/22 15:50 Dose: 1 mg Documented By: MA Ondansetron HCl (Ondansetron Inj 2 Mg/Ml 2 Ml Vial) 4 mg IV NOW STA Stop: 12/09/22 14:34 Last Admin: 12/09/22 14:55 Dose: 4 mg Documented By: CURT Imaging Data Radiologist's Impression: Head CT 12/09/22 14:[address] DOSE: 547.75 mGy.cm HISTORY: fall, seizure TECHNIQUE: Multiaxial CT images of the head were performed without the use of intravenous contrast. Automated exposure control was utilized for this study. A dose lowering technique was utilized adhering to the principles of ALARA. Comparison: Head CT 10/08/2022. Findings: The paranasal sinuses and right mastoid air cells are clear. There is a chronic left mastoid effusion again noted. The calvarium and skull base are intact. There is no mass, hematoma, midline shift, acute infarct. White matter hypodensity is nonspecific but suggestive of microvascular ischemic change. The ventricles and sulci demonstrate mild age-related involutional changes. Impression: No significant change compared to the prior study. No acute intracranial abnormality. ACT 112: Negative or not required by law. Electronically signed by: Jc Che M.D. 12/09/2022 3:13 PM Discharge Plan Visit Data Chief Complaint: Fall ED Provider: Luis Vazquez Discharge Problem: Seizure-like activity Forms Stand Alone Forms: My [facility] Prescriptions Prescriptions: No Action Markellleender Ellipta 100-62.5-25 mcg blister with device 1 inh inhalation QAM Qty: 60 5RF levetiracetam [Keppra] 500 mg tablet 1,000 mg PO BID Qty: 360 3RF carbidopa-levodopa [Sinemet] 25-100 mg tablet 1 tab PO TID Qty: 270 2RF cholecalciferol (vitamin D3) [Vitamin D3] 50 mcg (2,000 unit) capsule 4,000 unit PO HS atorvastatin 40 mg tablet 40 mg PO HS fexofenadine [Karlee Allergy] 180 mg Tablet 180 mg PO QAM acetaminophen 325 mg Tablet 650 mg PO Q4H PRN (Reason: pain) Qty: 30 0RF Rx Instructions: OTC albuterol sulfate [Ventolin HFA] 90 mcg/actuation HFA aerosol inhaler 2 puff INHALATION Q4H PRN (Reason: Shortness Of Breath Or Wheezing) diclofenac sodium [Voltaren Arthritis Pain] 1 % Gel 2 g TOPICAL TID PRN (Reason: Pain) Rx Instructions: left knee ferrous sulfate 325 mg (65 mg iron) Tablet,Delayed Release (Dr/Ec) 325 mg PO QAM Qty: 30 0RF prednisone 5 mg Tablet 5 mg PO QAM gabapentin 300 mg capsule 600 mg PO QAM Rx Instructions: 600mg in am/300mg in pm pantoprazole [Protonix] 20 mg Tablet,Delayed Release (Dr/Ec) 20 mg PO QAM potassium chloride 20 mEq Tablet Extended Release 20 meq PO HS cyanocobalamin (vitamin B-12) [Vitamin B-12] 1,000 mcg Tablet Extended Release 1,000 mcg PO QAM magnesium 250 mg Tablet 250 mg PO QAM tramadol 50 mg tablet 50 mg PO Q6H PRN (Reason: pain, moderate) Qty: 30 0RF ondansetron 4 mg tablet,disintegrating 4 mg PO Q6H PRN (Reason: nausea and vomiting) Qty: 30 0RF warfarin 5 mg tablet 5 - 7.5 mg PO DIRECTED Rx Instructions: Take according to anticoagulation cinic. Trulicity 1.5 mg/0.5 mL pen injector 1.5 mg SUBCUT WE Rx Instructions: Take fri ketorolac 10 mg tablet 10 mg PO HS allopurinol 100 mg tablet 100 mg PO HS insulin glargine [Lantus Solostar U-100 Insulin] 100 unit/mL (3 mL) insulin pen 20 unit SUBCUT BID polyethylene glycol 3350 [Miralax] 17 gram/dose powder 17 g PO BID furosemide 20 mg tablet 20 mg PO QAM sennosides [Senokot] 8.6 mg tablet 8.6 mg PO QAM insulin aspart U-100 [Novolog FlexPen U-100 Insulin] 100 unit/mL (3 mL) insulin pen 1 sliding scale dose subcut ACHS Rx Instructions: supplemental scale for meal-time coverage and bed-time coverage. calcium polycarbophil [Fiber (calcium polycarbophil)] 625 mg Tablet 625 mg PO QAM Qty: 30 0RF Rx Instructions: OTC gabapentin 300 mg capsule 300 mg PO HS topiramate 100 mg tablet 100 mg PO BID Saline Mist 0.65 % aerosol,spray 2 spray intranasal QID PRN (Reason: DRYNESS) lactulose 20 gram/30 mL solution 20 g PO PM Referrals Referrals: PCP,NO [Physician] -
[2022-12-09] MEDS ORDERED: SODIUM CHLORIDE 0.9% 1000ML 1,000 ML IV SCH (14:15)
[2022-12-09 14:16] LABS: Basophils # (auto) 0.04 K/uL (0-0.2); Basophils % (auto) 0.9 %; Eosinophils # (auto) 0.15 K/uL (0-0.50); Eosinophils % (auto) 3.3 %; Hematocrit (blood only) 34.7 % (42.0-52.0); Hemoglobin 10.8 g/dl (14.0-18.0); Immature Granulocytes # (auto) 0.06 K/uL (0.01-0.20); Immature Granulocytes % (auto) 1.3 %; Lymphocytes # (auto) 0.85 K/uL (1.2-3.4); Lymphocytes % (auto) 18.6 %; Mean Corpuscular Hgb Conc 31.1 g/dL (32.0-36.0); Mean Corpuscular Volume 86.8 fL (80.0-100.0); Mean Platelet Volume 10.3 fL (9.4-12.4); Monocytes # (auto) 0.32 K/uL (0.11-0.59); Neutrophils # (auto) 3.16 K/uL (1.40-6.50); Neutrophils % (auto) 68.9 %; Platelet Count 161 K/uL (130-400); RDW Coefficient of Variation 15.5 % (11.5-14.5); RDW Standard Deviation 48.6 fL (36.4-46.3); White Blood Count 4.58 K/ul (4.8-10.8)
[2022-12-09 14:33] LABS: Albumin Globulin Ratio 1.5 (0.9-2); Albumin Level 3.8 gm/dl (3.4-5.0); BUN Creatinine Ratio 23.1 (10-20); Bilirubin,Total 0.4 mg/dl (0.2-1.0); Calcium 9.3 mg/dl (8.6-10.3); Creatinine Clr Calc Pharmacy 58.4 ml/min; Est GFR (Non-African American) 52.6 ml/min; Globulin 2.6 gm/dl (2.5-4.0); Total Protein 6.4 gm/dl (6.0-8.3)
[2022-12-09] MEDS ORDERED: ONDANSETRON INJ 2 MG/ML 2 ML VIAL IV STA (14:33)
[2022-12-09 15:15] LABS: Appearance Urine Clear (Clear); Bilirubin Urine Negative (Negative); Blood Urine Negative (Negative); Color Urine Yellow; Glucose Urine UA Negative (Negative); Ketones Urine Negative (Negative); Leukocyte Esterase Urine Negative (Negative); Nitrite Urine Negative (Negative); Protein Urine Negative (Negative); Specific Gravity Urine 1.014 (1.000-1.030); Urobilinogen Urine Negative (Negative)
--- NOTE | 2022-12-09 15:16 | CT Scan Report ---
HEAD CT NONCONTRAST CT DOSE: 547.75 mGy.cm HISTORY: fall, seizure TECHNIQUE: Multiaxial CT images of the head were performed without the use of intravenous contrast. A utomated exposure control was utilized for this study. A dose lowering technique was utilized adheri ng to the principles of ALARA. Comparison: Head CT 10/08/2022. Findings: The paranasal sinuses and right mastoid air cells are clear. There is a chronic left mastoi d effusion again noted. The calvarium and skull base are intact. There is no mass, hematoma, midline shift, acute infarct. White matter hypodensity is nonspecific but suggestive of microvascular ischemi c change. The ventricles and sulci demonstrate mild age-related involutional changes. Impression: No significant change compared to the prior study. No acute intracranial abnormality. ACT 112: Negative or not required by law. Electronically signed by: Jc Che M.D. 12/09/2022 3:13 PM
--- NOTE | 2022-12-09 17:03 | History & Physical Report ---
Date of Service December 09, 2022 Assessment & Plan (1) Seizure-like activity: Plan: Fall, weakness CThead: No acute finding EKG: Normal sinus rhythm, QTc 471, no acute ST segment change or T wave inversion No leukocytosis, hemoglobin 10.8 baseline 9.511.0 - UA uninfected appearing ? Possible aspiration pneumonia as noted below Seizure-like activity, history of suspected nonepileptic seizures With 1 episode while in ER, received 2 mg of lorazepam and 1 g Keppra load. Patient is on [employer] Keppra, level pending. Continue home dosing at this time Continue Topamax 100 mg p.o. twice daily, gabapentin Patient reports he only has seizure-like activity in the hospital, does not generally have seizures at home. Has been on Keppra for seizures versus pseudoseizures Possible aspiration pneumonitis Patient reports he has intermittent aspiration events due to his parkinsonism. He reports that he did have 2 events earlier this week. While he does not have fever, chills or night sweats he has noted he feels a little short of breath and his oxygen levels were in the high 80s at home, notes that these are 100% while in the ER on 2 L No leukocytosis Chest x-ray: naf Procalcitonin: pending - Abx deferred, if fever/leukocytosis/increasing o2 --> +Unasyn CAD, history of paroxysmal A-fib, history of cath 2020 in 2021 widely patent left main stent, LAD 30% mid disease, no significant circumflex disease, luminal irregularities on RCA Continue atorvastatin, Lasix No chest pain or chest pressure EKG sinus on admission. Initial concern for abnormal rhythm flutter/VT however this correlated with the patient's arm tapping his leads, and when arm was not touching leads patient remained in sinus rhythm consistent with his EKG. Does have a history of paroxysmal A-fib Anticoagulated, no longer on antiplatelet therapy Monitoring on PCU Mechanical heart valve Continue warfarin, goal INR 2.53.5 INR ordered at time of admit, no clinical signs of bleeding on exam Parkinsonism Continue carbidopalevodopa Type II DM On weekly Trulicity Basal bolus insulin while inpatient Goal BSG 767930 Dose reduce Lantus while inpatient to 15 units twice daily, SSI DVT prophylaxis: Anticoagulated Diet: Heart healthy/type II DM Disposition: PCU CODE STATUS: Full code (2) CAD (coronary artery disease): (3) Coagulopathy: (4) Diabetes: (5) Parkinsonism: (6) Rheumatoid arthritis: (7) Seizure disorder: (8) Asthma: (9) Chronic kidney disease, stage 3a: (10) Aspiration into airway: History of Present Illness Primary Care Provider: Tan HammondDO Hurley is a 77-year-old male with a past medical history of seizure-like activity, parkinsonism, CKD 3, mechanical heart valve on Coumadin. Goal INR 2.53.5, DM2, RA/polymyositis on daily prednisone, CAD who presented emergency department after a fall and who experienced seizure-like activity after arrival. Per ER: initially concerned about seizure like activity. 1x possible seizure, RUE, non responsive during initial event --> got keppra, 1mg ativan then pt improved shortly after. Seemed confused/post-ictal afterwards. Second event which again responded well to ativan 1mg after. Had declined referral to epilepsy clinic/EMU. Pt presented as he was using the restroom at home, and then woke up on the floor and din't remember falling off the toilet. Discharge home was discussed with pt, had a 3rd possible event with ?partial conciousness and was recommended for observation .Pt reports episodes happen when cold and under stress. Per Pt: Tired, somnolent Awaiting injection of gel into his left knee for knee replacement. Endorses chronic L knee pain, denies hip pain. Denies back pain. had R SI joint surgery Denies chest pain, chest pressure, shortness of breath at assessment. Notes his oxygen was a little low 90s at home, but has been normal here. Denies SoB/cough, thinks maybe a little short of breath earlier in the week. He feels he did aspirate earlier this week which happens intermittently due to his Denies lightheadedness, dizziness. Endorses fatigue Reports he hasn't had seizures 'at least for 20 minutes'. He reports he hasn't had any at all in the past few weeks. Denies recent change in symptoms. No fevers, chills, sweats, abdominal pain. Was using the bathroom and then woke up on the floor and called EMS. Denies bowel or bladder incontinence. Reprots he had an EEG which had not correlated with seizures in the past. Was recommended to followup with an epilepsy clinic, but has not followed up with this yet. He feels his seizures are brought on by being cold and notes he has been more cold with some flickering lights at home. Tired, shakey, sleep at time of assessment. Medical History: Reviewed Medications: Reviewed Surgical History: Reviewed Family history: Reviewed Allergies: Reviewed Social History: Reviewed Code Status: Full Code Allergies Allergy/AdvReac Type Severity Reaction Status Date / Time bee venom protein (honey bee) Allergy Severe anaphylaxis Verified 12/09/22 17:08 Iodinated Contrast Media Allergy Severe Anaphylaxis Verified 12/09/22 17:08 shellfish derived Allergy Severe Anaphylaxis Verified 12/09/22 17:08 doxazosin Allergy Intermediate Rash Verified 12/09/22 17:08 tamsulosin [From Flomax] Allergy Intermediate Itching Verified 12/09/22 17:08 Tetanus Vaccines and Toxoid Allergy Unknown Unknown Verified 12/09/22 17:08 lamotrigine AdvReac Intermediate Confusion Verified 12/09/22 17:08 oxycodone [From Percocet] AdvReac Intermediate nausea/vomi Verified 12/09/22 17:08 ting propoxyphene [From Darvon] AdvReac Intermediate nausea/vomi Verified 12/09/22 17:08 ting Home Medications Medication Instructions Recorded Confirmed Type atorvastatin 40 mg tablet 40 mg PO HS 05/28/20 12/09/22 History fexofenadine 180 mg tablet 180 mg PO QAM 02/11/21 12/09/22 History (Karlee Allergy) allopurinol 100 mg tablet 100 mg PO HS 04/10/21 12/09/22 History cholecalciferol (vitamin D3) 50 4,000 unit PO HS 07/14/21 12/09/22 History mcg (2,000 unit) capsule (Vitamin D3) insulin glargine 100 unit/mL (3 20 unit subcut BID 07/26/21 12/09/22 History mL) subcutaneous pen (Lantus Solostar U-100 Insulin) acetaminophen 325 mg tablet 650 mg PO Q4H PRN pain #30 tabs 08/04/21 12/09/22 Rx fluticasone fur. 100 mcg-umeclid 1 inh inhalation QAM #60 ea 09/06/21 12/09/22 Rx 62.5 mcg-vilant 25 mcg inhalat.powder (Trelegy Ellipta) albuterol sulfate 90 mcg/actuation 2 puff inhalation Q4H PRN 09/27/21 12/09/22 History aerosol inhaler (Ventolin HFA) Shortness Of Breath Or Wheezing polyethylene glycol 3350 17 17 g PO BID 10/04/21 12/09/22 History gram/dose oral powder (Miralax) furosemide 20 mg tablet 20 mg PO QAM 11/24/21 12/09/22 History sennosides 8.6 mg tablet (Senokot) 8.6 mg PO QAM 11/24/21 12/09/22 History insulin aspart U-100 100 unit/mL 1 sliding scale dose subcut ACHS 02/26/22 12/09/22 History (3 mL) subcutaneous pen (Novolog FlexPen U-100 Insulin aspart) diclofenac sodium 1 % topical gel 2 g topical TID PRN Pain 05/21/22 12/09/22 History (Voltaren Arthritis Pain) ferrous sulfate 325 mg (65 mg 325 mg PO QAM #30 tabs 05/26/22 12/09/22 Rx iron) tablet,delayed release levetiracetam 500 mg tablet 1,000 mg PO BID #360 tabs 08/03/22 12/09/22 Rx (Keppra) cyanocobalamin (vitamin B-12) 1,000 mcg PO QAM 08/14/22 12/09/22 History 1,000 mcg tablet,extended release (Vitamin B-12 ER) gabapentin 300 mg capsule 600 mg PO QAM 08/14/22 12/09/22 History magnesium 250 mg tablet 250 mg PO QAM 08/14/22 12/09/22 History pantoprazole 20 mg tablet,delayed 20 mg PO QAM 08/14/22 12/09/22 History release (Protonix) potassium chloride 20 mEq 20 meq PO HS 08/14/22 12/09/22 History tablet,extended release prednisone 5 mg tablet 5 mg PO QAM 08/14/22 12/09/22 History ondansetron 4 mg disintegrating 4 mg PO Q6H PRN nausea and 08/24/22 12/09/22 Rx tablet vomiting #30 tabs tramadol 50 mg tablet 50 mg PO Q6H PRN pain, moderate 08/24/22 12/09/22 Rx #30 tabs calcium polycarbophil 625 mg 625 mg PO QAM #30 tabs 09/14/22 12/09/22 Rx tablet (Fiber (calcium polycarbophil)) gabapentin 300 mg capsule 300 mg PO HS 09/30/22 12/09/22 History lactulose 20 gram/30 mL oral 20 g PO PM 09/30/22 12/09/22 History solution sodium chloride 0.65 % nasal spray 2 spray intranasal QID PRN DRYNESS 09/30/22 12/09/22 History aerosol (Saline Mist) topiramate 100 mg tablet 100 mg PO BID 09/30/22 12/09/22 History warfarin 5 mg tablet 5 - 7.5 mg PO DIRECTED 11/06/22 12/09/22 History carbidopa 25 mg-levodopa 100 mg 1 tab PO TID #270 tabs 11/16/22 12/09/22 Rx tablet (Sinemet) dulaglutide 1.5 mg/0.5 mL 1.5 mg subcut WE 12/09/22 12/09/22 History subcutaneous pen injector (Trulicity) ketorolac 10 mg tablet 10 mg PO HS 12/09/22 12/09/22 History Past Med/Surg History Medical History (Updated 12/09/22 @ 18:19 by Jone Pringle MD) SHYANN (acute kidney injury) Anemia history of blood transfusion, 2020 Anxiety Aortic ectasia, thoracic Aspiration pneumonia hx of--per pt was due to pain medications Asthma inhaler daily and prn CAD (coronary artery disease) follows with Dr. 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 inhaler daily and prn and uses 2L N/C at hs Kidney stones Migraine Neurogenic claudication due to lumbar spinal stenosis On home oxygen therapy 2L at hs Pancytopenia Parkinsonism per pt has a difficulty swallowing, states certain foods can be difficult to eat Pneumonia hx of, per pt last admission @ [facility] was 05/2022 Polymyositis Prostate cancer radiation Pyelonephritis Rheumatoid arthritis Shortness of breath per pt on with exertion Somatic dysfunction of cervical region Stroke-like symptom 12/2019, w/ blurry vision and dysarthria. mild R sided wkness. attending outpatient physical therapy w/ good improvement in strength (5+/5 strength of all 4 extremities as of 05/28/20) Supratherapeutic INR Thoracic ascending aortic aneurysm s/p repair TIA (transient ischemic attack) 2019--no deficits--follows with Dr. Sheikh Urinary tract infection Surgical History H/O hernia repair History of aortic valve replacement 2003 @ [facility] in [place], [place] History of appendectomy History of bilateral cataract extraction History of cardiac cath x3--2017 @ [facility] with 1 stent placed/[address] [facility]/last 04/2021 @ [facility] History of cholecystectomy History of colonoscopy History of esophagogastroduodenoscopy (EGD) History of fusion of cervical spine normal ROM History of gastric bypass 2007--lap band History of heart artery stent x1--2018 @ [facility] History of lumbar spinal fusion History of lung biopsy 2019 History of partial nephrectomy 1986 on right kidney History of prostate biopsy malignant History of tonsillectomy History of tooth extraction all upper teeth removed Family History Mother , age 87 of pulmonary issues Rheumatoid arthritis Father , in his mid 80s of a stroke Stroke Other Coronary heart disease No family history of adverse response to anesthesia Social History Smoking Status: Never smoker Second Hand Exposure: No; Do You Dip or Chew Tobacco: No; Hx Alcohol Use: No Hx Substance Use: No Preferred Language: Swazi Communication Ability: Effective Hearing Ability: Hard of Hearing Mounter Clarinets Required: No Beliefs That Will Affect Care: None marital status: / Current Living Situation: Personal Care Facility Current Living Situation Comment: [place] [facility] current occupational status: 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 A&Ox3. NAD. Cooperative. HEENT: Atraumatic, normocephalic. no tongue lesions. Viion/hearing intact. EoM intact. V1/V2/V3 sensation intact bilat Pulm: CTAB A&P. -wheezes, -rales, -rhonchi. Symmetrical chest rise. No increased work of breathing. No respiratory distress. Cardiac: rrr, +sm. Radial pulses intact and symmetrical. Abdominal: Nontender, nondistended, soft. BS present. Ext: warm, dry. Moves all extremities equally. Sensation to soft touch in hands and legs bilat. Results & Data Results & Data Vital Signs (Past 12 Hours) Vital Signs Temp Pulse Pulse Resp BP BP Pulse Ox 12/09/22 16:00 66 17 123/73 98 12/09/22 14:37 16 131/64 96 12/09/22 13:32 36.5 C 70 17 137/78 96 12/09/22 13:32 36.5 C 70 17 137/78 96 12/09/22 13:32 66 O2 Del Method O2 Flow Rate 12/09/22 16:00 Room Air 12/09/22 14:37 Nasal Cannula 2 12/09/22 13:32 Room Air 12/09/22 13:32 Room Air 12/09/22 13:32 PG Care Time/CCT Total # of Minutes Spent Total Time Spent with Patient: Total time spent is greater than 50% in coordination of care (as documented) at patient's floor/unit and/or counseling patient: Coding Level of Care Code 14081 INT INP/OBS CARE 375MIN Diagnoses Seizure-like activity R56.9 CAD (coronary artery disease) I25.10 Coronary Disease-Associated Artery/Lesion type: [place] artery [place] vs. transplanted heart: [place] heart Associated angina: without angina Coagulopathy D68.9 Diabetes E11.42; Z79.4 Diabetes mellitus type: type 2 Diabetes mellitus penitentiary insulin use: with penitentiary use Diabetes mellitus complication status: with neurologic complications Diabetes mellitus complication detail: with polyneuropathy Parkinsonism G20 Rheumatoid arthritis M06.9 Rheumatoid arthritis location: unspecified site Rheumatoid factor presence: unspecified presence Seizure disorder G40.909 Asthma J45.909 Chronic kidney disease, stage 3a N18.3 Aspiration into airway T17.908A (2) CAD (coronary artery disease) Coronary Disease-Associated Artery/Lesion type: [place] artery [place] vs. 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
[2022-12-09] MEDS ORDERED: CARBOHYDRATES FOR HYPOGLYCEMIA PO PRN (18:20)
[2022-12-09] MEDS ORDERED: GLUCAGON FOR INJ 1 MG VIAL SQ PRN (18:20)
[2022-12-09] MEDS ORDERED: DEXTROSE 50% 50 ML SYRINGE IV PRN (18:20)
[2022-12-09] MEDS ORDERED: GLUCOSE 40% GEL 15 GM TUBE PO PRN (18:20)
[2022-12-09] MEDS ORDERED: GLUCOSE 10 TAB/TUBE PO PRN (18:20)
[2022-12-09 18:38] LABS: INR 1.7 (0.9-1.1); Prothrombin Time 18.3 Seconds (9.0-12.0)
--- NOTE | 2022-12-09 19:15 | XRay Report ---
XR chest 1V portable HISTORY: aspiration COMPARISON: Chest 11/06/2022. FINDINGS: No pneumothorax. The cardiac silhouette remains mildly enlarged. There are suture material within the left lung base. No new focal lung consolidations to suggest a pneumonia. There are postste rnotomy changes and cervical spinal fusion hardware again noted. A cardiac valve prosthesis. There ar e low lung volumes. A few bibasilar linear densities consistent with subsegmental atelectasis. Mild c hronic interstitial thickening persists. No evidence for pulmonary edema. The gastric lap band remain s unchanged in position and demonstrates a horizontal orientation. IMPRESSION: No significant change compared to the prior study. No acute process. ACT 112: Negative or not required by law. Electronically signed by: Jc Che M.D. 12/09/2022 7:12 PM
[2022-12-09] MEDS ORDERED: AMPICILLIN/SULBACTAM SOD 3,000 MG in 0.9 % SODIUM CHLORIDE 100 ML IV NR (21:15)
[2022-12-09] MEDS ORDERED: ALBUTEROL HFA 8 GM INHALER INH PRN (21:33)
[2022-12-09] MEDS ORDERED: ACETAMINOPHEN 325 MG TAB PO PRN (21:33)
[2022-12-09] MEDS ORDERED: LORazepam 2 MG/1 ML VIAL IV PRN ×2 (21:33)
[2022-12-09] MEDS: allopurinoL 100 MG TAB PO SCH (22:31)
[2022-12-09] MEDS: ATORVASTATIN 40 MG TAB PO SCH (22:32)
[2022-12-09] MEDS: levETIRAcetam 500 MG TAB PO SCH (22:32)
[2022-12-09] MEDS: LACTULOSE SYRUP 20 GM/30 ML UDC PO SCH (22:32)
[2022-12-09] MEDS: GABAPENTIN 300 MG CAP PO SCH (22:32)
[2022-12-09] MEDS: CHOLECALCIFEROL 1,000 UNITS 25 MCG TAB PO SCH (22:32)
[2022-12-09] MEDS: CARBIDOPA/LEVODOPA 25/100MG TAB PO SCH (22:32)
[2022-12-09] MEDS: POLYETHYLENE (MIRALAX) 17 GM PACK PO SCH (22:33)
[2022-12-09] MEDS: TOPIRAMATE 100 MG TAB PO SCH (22:33)
[2022-12-09] MEDS: WARFARIN SOD 7.5 MG TAB PO SCH (22:33)
[2022-12-09] MEDS: traMADol HCL 50 MG TABLET PO PRN (22:38)
[2022-12-09] MEDS: INSULIN ASPART PER UNIT CHARGE SC SCH (22:39)
[2022-12-09] MEDS: LANTUS PER UNIT CHARGE SQ SCH (22:40)
[2022-12-10] MEDS: DICLOFENAC SOD 1% GEL 100 GM TUBE EXT PRN ×2 (01:46→21:58)
[2022-12-10] MEDS: AMPICILLIN/SULBACTAM SOD 3,000 MG in 0.9 % SODIUM CHLORIDE 100 ML IV SCH ×4 (04:08→22:03)
[2022-12-10 07:16] LABS: Basophils # (auto) 0.02 K/uL (0-0.2); Basophils % (auto) 0.5 %; Eosinophils # (auto) 0.21 K/uL (0-0.50); Eosinophils % (auto) 5.3 %; Hematocrit (blood only) 32.1 % (42.0-52.0); Hemoglobin 10.1 g/dl (14.0-18.0); Immature Granulocytes # (auto) 0.04 K/uL (0.01-0.20); Lymphocytes # (auto) 1.15 K/uL (1.2-3.4); Lymphocytes % (auto) 28.9 %; Mean Corpuscular Hemoglobin 26.9 pg (25.0-34.0); Mean Corpuscular Hgb Conc 31.5 g/dL (32.0-36.0); Mean Corpuscular Volume 85.4 fL (80.0-100.0); Mean Platelet Volume 9.3 fL (9.4-12.4); Monocytes # (auto) 0.25 K/uL (0.11-0.59); Monocytes % (auto) 6.3 %; Neutrophils # (auto) 2.31 K/uL (1.40-6.50); Platelet Count 155 K/uL (130-400); RDW Coefficient of Variation 15.4 % (11.5-14.5); RDW Standard Deviation 48.1 fL (36.4-46.3); Red Blood Count 3.76 M/uL (4.70-6.10); White Blood Count 3.98 K/ul (4.8-10.8)
[2022-12-10 07:37] LABS: INR 1.8 (0.9-1.1); Prothrombin Time 18.8 Seconds (9.0-12.0)
[2022-12-10 07:38] LABS: BUN Creatinine Ratio 21.9 (10-20); Calcium 8.7 mg/dl (8.6-10.3); Creatinine Clr Calc Pharmacy 66.5 ml/min; Est GFR (African American) 71.5 ml/min; Est GFR (Non-African American) 61.7 ml/min; Potassium 3.7 mmol/L (3.5-5.1)
[2022-12-10] MEDS: LANTUS PER UNIT CHARGE SQ SCH ×2 (08:36→21:57)
[2022-12-10] MEDS: POLYETHYLENE (MIRALAX) 17 GM PACK PO SCH ×2 (08:37→21:49)
[2022-12-10] MEDS: INSULIN ASPART PER UNIT CHARGE SC SCH ×4 (08:37→21:58)
[2022-12-10] MEDS: GABAPENTIN 600 MG TAB PO SCH (08:38)
[2022-12-10] MEDS: SENNA 8.6 MG TAB PO SCH (08:38)
[2022-12-10] MEDS: FEXOFENADINE HCL 180 MG TAB PO SCH (08:38)
[2022-12-10] MEDS: predniSONE 5 MG TAB PO SCH (08:38)
[2022-12-10] MEDS: levETIRAcetam 500 MG TAB PO SCH ×2 (08:38→21:50)
[2022-12-10] MEDS: PANTOprazole 40 MG TAB PO SCH (08:38)
[2022-12-10] MEDS: CARBIDOPA/LEVODOPA 25/100MG TAB PO SCH ×3 (08:38→21:50)
[2022-12-10] MEDS: CYANOCOBALAMIN (B-12) 500 MCG TABLET PO SCH (08:38)
[2022-12-10] MEDS: UMECLIDINIUM/VILANTEROL 62.5/25MCG 7 PUFFS/INHALER INH SCH (08:39)
[2022-12-10] MEDS: FERROUS SULFATE 325 MG TAB PO SCH (08:39)
[2022-12-10] MEDS: FLUTICASONE FUROATE 100MCG 14 PUFFS/INHALER INH SCH (08:39)
[2022-12-10] MEDS: TOPIRAMATE 100 MG TAB PO SCH ×2 (08:39→21:50)
--- NOTE | 2022-12-10 11:35 | Electrocardiogram Report ---
Test Reason : Blood Pressure : / mmHG Vent. Rate : 067 BPM Atrial Rate : 067 BPM P-R Int : 158 ms QRS Dur : 088 ms QT Int : 446 ms P-R-T Axes : 018 009 074 degrees QTc Int : 471 ms Normal sinus rhythm Poor R wave progression, consider anterior [place] vs. lead placement vs. LVH Abnormal ECG When compared with ECG of 06-NOV-2022 17:31, No significant change was found Confirmed by Josh Vora ([id number]) on 12/10/2022 11:35:01 AM Referred By: Confirmed By:Josh Vora
--- NOTE | 2022-12-10 11:36 | Electrocardiogram Report ---
Test Reason : Blood Pressure : / mmHG Vent. Rate : 067 BPM Atrial Rate : 067 BPM P-R Int : 144 ms QRS Dur : 086 ms QT Int : 446 ms P-R-T Axes : 000 014 078 degrees QTc Int : 471 ms Normal sinus rhythm Normal ECG When compared with ECG of 09-DEC-2022 13:28, (unconfirmed) No significant change was found Confirmed by Josh Vora ([id number]) on 12/10/2022 11:36:19 AM Referred By: [facility] Confirmed By:Josh Vora
--- NOTE | 2022-12-10 14:15 | Hospitalist Progress Note ---
Date of Service December 10, 2022 Assessment & Plan (1) Seizure-like activity: Plan: Apparently this occurred in the ED. Initial head CT scan is negative. He has a previous history of seizures. Will not pursue this further if there are no recurrences while hospitalized. Continue current anticonvulsant medication. With 1 episode while in ER, received 2 mg of lorazepam and 1 g Keppra load. Possible aspiration pneumonitis Patient reports he has intermittent aspiration events due to his parkinsonism. He reports that he did have 2 events earlier this week. While he does not have fever, chills or night sweats he has noted he feels a little short of breath and his oxygen levels were in the high 80s at home, notes that these are 100% while in the ER on 2 L No leukocytosis Chest x-ray: naf Procalcitonin: pending - Abx deferred, if fever/leukocytosis/increasing o2 --> +Unasyn CAD, history of paroxysmal A-fib, history of cath 2019 in 2021 widely patent left main stent, LAD 30% mid disease, no significant circumflex disease, luminal irregularities on RCA Continue atorvastatin, Lasix No chest pain or chest pressure EKG sinus on admission. Initial concern for abnormal rhythm flutter/VT however this correlated with the patient's arm tapping his leads, and when arm was not touching leads patient remained in sinus rhythm consistent with his EKG. Does have a history of paroxysmal A-fib Anticoagulated, no longer on antiplatelet therapy Monitoring on PCU Mechanical heart valve Continue warfarin, goal INR 2.53.5 INR ordered at time of admit, no clinical signs of bleeding on exam Parkinsonism Continue carbidopalevodopa Type II DM On weekly Trulicity Basal bolus insulin while inpatient Goal BSG 362404 Dose reduce Lantus while inpatient to 15 units twice daily, SSI DVT prophylaxis: Anticoagulated Diet: Heart healthy/type II DM Disposition: PCU CODE STATUS: Full code (2) CAD (coronary artery disease): Plan: Stable. Continue current medical management (3) Coagulopathy: Plan: Target INR with mechanical heart valve is 2.5-3.5. Continue Coumadin therapy. Serial INR measurements (4) Diabetes: Plan: ADA diet. Sliding scale coverage. Continue current medical management (5) Parkinsonism: Plan: Stable. Continue current medical management (6) Rheumatoid arthritis: Plan: Steroid-dependent. Continue prednisone therapy (7) Asthma: Plan: Stable. Nebulizer treatments as necessary (8) Chronic kidney disease, stage 3a: Plan: Monitor intake and output. Serial labs (9) Aspiration into airway: Plan: Possible. This has occurred in the past. Plan OT and PT assessments requested. Final disposition to be determined Admission and Anticipated Discharge Date Admission Date: December 09, 2022 Subjective Alert and oriented. No distress. The patient states that he has had multiple falls at home and also states he had a seizure while in the ED. Head CT scan on admission is negative. INR is 1.8. He is on room air. He has known Parkinson's disease. He has a mechanical aortic valve and is on Coumadin therapy that appears to be subtherapeutic at 1.8. Target INR with mechanical heart valve is 2.5-3.5. He is steroid-dependent with rheumatoid arthritis. He remains on his usual oral prednisone dose. Review of Systems Review of Systems: Constitutional-no fever or chills ENT-no blurred vision, no double vision, no epistaxis, no sore throat Respiratory-no cough, no wheezing, no shortness of breath Cardiac-no palpitations, no chest pain, no syncope GI-no nausea, vomiting, diarrhea, melena, hematochezia -no urinary retention, no urinary incontinence, no dysuria, no hematuria Musculoskeletal-no joint pain, no muscle tenderness Skin-no bruising, no rashes, no pruritus Neuro-generalized weakness. Multiple falls at home Psych-no depression, no anxiety Physical Exam Physical Exam: General-alert and oriented x3, no fevers, no chills HEENT-head atraumatic and normocephalic, pupils equal and reactive to light, extraocular muscles intact Neck-no lymphadenopathy or thyromegaly, trachea midline Chest-clear to auscultation percussion. No rales, wheezing or rhonchi Cardiac-regular rate and rhythm, normal S1 and S2 Abdomen-normal bowel sounds, nontender, no hepatosplenomegaly Extremities-no cyanosis, clubbing, or edema Neuro-cranial nerves II through XII intact, motor and sensory function within normal limits, strength symmetrical with generalized weakness , no focal deficits Psych-normal affect, normal mood Results & Data Results & Data Vital Signs (Past 12 Hours) Vital Signs Temp Pulse Resp BP Pulse Ox O2 Del Method 12/10/22 10:59 36.6 C 70 16 114/61 95 Room Air 12/10/22 10:06 Room Air 12/10/22 07:07 36.7 C 60 16 112/61 95 Room Air 12/10/22 03:31 36.4 C L 57 L 18 114/57 L 96 Room Air Laboratory Results 12/10/22 06:54 12/10/22 06:54 PG Care Time/CCT Total # of Minutes Spent Total Time Spent with Patient: Total time spent is greater than 50% in coordination of care (as documented) at patient's floor/unit and/or counseling patient: Coding Level of Care Code 56137 SUB INP/OBS CARE 3/50MIN Diagnoses Seizure-like activity R56.9 CAD (coronary artery disease) I25.10 Coronary Disease-Associated Artery/Lesion type: [place] artery [place] vs. transplanted heart: [place] heart Associated angina: without angina Coagulopathy D68.9 Diabetes E11.42; Z79.4 Diabetes mellitus type: type 2 Diabetes mellitus director long term care insulin use: with care home use Diabetes mellitus complication status: with neurologic complications Diabetes mellitus complication detail: with polyneuropathy Parkinsonism G20 Rheumatoid arthritis M06.9 Rheumatoid arthritis location: unspecified site Rheumatoid factor presence: unspecified presence Asthma J45.909 Chronic kidney disease, stage 3a N18.3 Aspiration into airway T17.908A (2) CAD (coronary artery disease) Coronary Disease-Associated Artery/Lesion type: [place] artery [place] vs. transplanted heart: [place] heart Associated angina: without angina Qualified Code(s): I25.10 - Atherosclerotic heart disease of [place] coronary artery without angina pectoris (4) Diabetes Diabetes mellitus type: type 2 Diabetes mellitus director long term care insulin use: with director long term care use Diabetes mellitus complication status: with neurologic complications Diabetes mellitus complication detail: with polyneuropathy Qualified Code(s): E11.42 - Type 2 diabetes mellitus with diabetic polyneuropathy; Z79.4 - prison (current) use of insulin (6) Rheumatoid arthritis Rheumatoid arthritis location: unspecified site Rheumatoid factor presence: unspecified presence Qualified Code(s): M06.9 - Rheumatoid arthritis, unspecified
[2022-12-10] MEDS: WARFARIN SOD 7.5 MG TAB PO SCH (15:48)
[2022-12-10] MEDS: traMADol HCL 50 MG TABLET PO PRN (15:48)
[2022-12-10] MEDS: LACTULOSE SYRUP 20 GM/30 ML UDC PO SCH (21:41)
[2022-12-10] MEDS: ATORVASTATIN 40 MG TAB PO SCH (21:49)
[2022-12-10] MEDS: GABAPENTIN 300 MG CAP PO SCH (21:50)
[2022-12-10] MEDS: allopurinoL 100 MG TAB PO SCH (21:50)
[2022-12-10] MEDS: CHOLECALCIFEROL 1,000 UNITS 25 MCG TAB PO SCH (21:50)
[2022-12-11] MEDS: traMADol HCL 50 MG TABLET PO PRN ×2 (00:57→11:05)
[2022-12-11] MEDS: AMPICILLIN/SULBACTAM SOD 3,000 MG in 0.9 % SODIUM CHLORIDE 100 ML IV SCH ×2 (04:40→10:56)
[2022-12-11 07:23] LABS: Basophils # (auto) 0.03 K/uL (0-0.2); Basophils % (auto) 0.8 %; Eosinophils # (auto) 0.23 K/uL (0-0.50); Eosinophils % (auto) 5.9 %; Hematocrit (blood only) 30.7 % (42.0-52.0); Hemoglobin 9.7 g/dl (14.0-18.0); Immature Granulocytes # (auto) 0.07 K/uL (0.01-0.20); Immature Granulocytes % (auto) 1.8 %; Lymphocytes # (auto) 1.29 K/uL (1.2-3.4); Lymphocytes % (auto) 32.8 %; Mean Corpuscular Hgb Conc 31.6 g/dL (32.0-36.0); Mean Corpuscular Volume 85.5 fL (80.0-100.0); Mean Platelet Volume 10.2 fL (9.4-12.4); Monocytes # (auto) 0.26 K/uL (0.11-0.59); Monocytes % (auto) 6.6 %; Neutrophils # (auto) 2.05 K/uL (1.40-6.50); Neutrophils % (auto) 52.1 %; Platelet Count 155 K/uL (130-400); RDW Coefficient of Variation 15.3 % (11.5-14.5); RDW Standard Deviation 47.7 fL (36.4-46.3); Red Blood Count 3.59 M/uL (4.70-6.10); White Blood Count 3.93 K/ul (4.8-10.8)
[2022-12-11 07:40] LABS: BUN Creatinine Ratio 22.1 (10-20); Calcium 8.7 mg/dl (8.6-10.3); Creatinine Clr Calc Pharmacy 73.1 ml/min; Est GFR (African American) 79.9 ml/min; Est GFR (Non-African American) 68.9 ml/min; Potassium 3.7 mmol/L (3.5-5.1)
[2022-12-11 07:53] LABS: INR 2.2 (0.9-1.1); Prothrombin Time 22.8 Seconds (9.0-12.0)
[2022-12-11] MEDS: FLUTICASONE FUROATE 100MCG 14 PUFFS/INHALER INH SCH (08:38)
[2022-12-11] MEDS: UMECLIDINIUM/VILANTEROL 62.5/25MCG 7 PUFFS/INHALER INH SCH (08:38)
[2022-12-11] MEDS: SENNA 8.6 MG TAB PO SCH (08:39)
[2022-12-11] MEDS: GABAPENTIN 600 MG TAB PO SCH (08:39)
[2022-12-11] MEDS: levETIRAcetam 500 MG TAB PO SCH ×2 (08:39→21:39)
[2022-12-11] MEDS: predniSONE 5 MG TAB PO SCH (08:39)
[2022-12-11] MEDS: FERROUS SULFATE 325 MG TAB PO SCH (08:39)
[2022-12-11] MEDS: TOPIRAMATE 100 MG TAB PO SCH ×2 (08:39→21:47)
[2022-12-11] MEDS: FEXOFENADINE HCL 180 MG TAB PO SCH (08:39)
[2022-12-11] MEDS: PANTOprazole 40 MG TAB PO SCH (08:39)
[2022-12-11] MEDS: CYANOCOBALAMIN (B-12) 500 MCG TABLET PO SCH (08:39)
[2022-12-11] MEDS: CARBIDOPA/LEVODOPA 25/100MG TAB PO SCH ×3 (08:39→21:39)
[2022-12-11] MEDS: INSULIN ASPART PER UNIT CHARGE SC SCH ×4 (08:40→21:50)
[2022-12-11] MEDS: LANTUS PER UNIT CHARGE SQ SCH ×2 (08:40→21:50)
[2022-12-11] MEDS: POLYETHYLENE (MIRALAX) 17 GM PACK PO SCH ×2 (08:48→21:37)
--- NOTE | 2022-12-11 11:27 | Hospitalist Progress Note ---
Date of Service December 11, 2022 Assessment & Plan (1) Seizure-like activity: Plan: After his fall (or syncopal episode) at home he had several seizure-like events upon arrival at [facility]. He has had no events since admission to the tele unit. Remains on keppra 1000mg BID + topamax 100mg BID. Uncertain if his fall was due to seizure or seizure-like activity vs other etiology. (2) Fall: Plan: mechanical? due to syncope? due to arrhythmia? due to seizure? other? consider 30-day event monitor post-d/c vs loop recorder -- r/o arrhythmia as cause of the event PT, OT (3) CAD (coronary artery disease): Plan: No evidence of any ischemic event leading to his fall at home. Cont statin. Uncertain why he is not on aspirin. Was on such earlier in the spring. L main stent 2019 per records. Last heart cath - [address] Vincent - L main stent patent; 20 to 30% mid LAD disease. (4) Diabetes: Plan: Hba1c 7.7% in July 2022. Repeat am. Due to steroid burst will increase lantus back to 20 units BID and adjust novolog parameters. (5) Parkinsonism: Plan: Cont carbidopa-levodopa TID (6) Rheumatoid arthritis: Plan: Steroid-dependent. Continue prednisone therapy 5mg daily. Increasing the prednisone to 40mg/day due to pulmonary issues as below. (7) Asthma: Plan: Steroid burst as below. (8) Chronic kidney disease, stage 3a: Plan: CrCl stable BMP am (9) Mechanical heart valve present: Plan: aortic valve INR Goal 2.5 to 3.5 INR today 2.2 cont coumadin 7.5mg Martin/Mo/Wed/Fri/Sat cont coumadin 5mg Tu/Thurs INR daily (10) Interstitial lung disease due to connective tissue disease: Plan: with likely exacerbation steroid burst - 40mg today, 40mg tomorrow, then wean to 30mg after that change unasyn IV to augmentin PO place on scheduled bronchodilators (11) Osteoarthritis of left knee: Plan: could be contributing to increased fall risk (locking, catching, etc) voltaren gel 4gm QID ice prn Admission and Anticipated Discharge Date Admission Date: December 09, 2022 Subjective tele overnight wnl patient resting in the chair by the window during the visit he reports that before he had his fall at home he had been short of breath for 2-3 days mild cough during that time period as well had been eating/drinking ok no fevers he denies having had palpitations prior to his event at home states he was walking into the kitchen and doesn't remember anything else denies that he had prodromal dizziness or lightheadedness he isn't sure how long he was on the floor in his apartment upon awakening he pressed his life alert button he thinks that he missed his medications for 1-2 days prior to the event he has a frontal headache since the fall; he hit his head during the event he also reports he has been having L hip pain and L knee pain saw ortho recently for the L knee pain had what sounds like a steroid injection and this only lasted 1 week Review of Systems Review of Systems: gen - no fevers or chills cv - no chest pain pulm - no dyspnea at rest; +AZUL GI - no nausea/emesis; has had issues with constipation neuro - no seizures since admission Physical Exam Physical Exam: gen - NAD, awake, alert neck - no JVD mouth - MMM heart - RRR, s1 s2, mechanical valve closure sound lungs - mild end-exp wheezing b/l, minimal rales bases, no increased work of breathing abd - soft NT ND BS+ ext - no edema, pulses 2+ b/l neuro - strength 5/5 x 4 exts, no facial droop musculo - left knee with OA changes Results & Data Results & Data Vital Signs (Past 12 Hours) Vital Signs Temp Pulse Pulse Resp BP BP Pulse Ox 12/11/22 10:16 12/11/22 08:54 36.8 C 83 19 124/65 98 12/11/22 08:26 61 12/11/22 03:47 36.5 C 62 18 99/55 L 95 12/11/22 00:55 104/54 L 12/10/22 23:37 88/40 L 12/10/22 23:37 36.5 C 61 18 90/53 L 94 O2 Del Method 12/11/22 10:16 Room Air 12/11/22 08:54 Room Air 12/11/22 08:26 12/11/22 03:47 Room Air 12/11/22 00:55 12/10/22 23:37 12/10/22 23:37 Room Air Laboratory Results Laboratory Results - last 24 hr 12/10/22 12/10/22 12/11/22 16:34 20:16 07:01 WBC 3.93 L RBC 3.59 L Hgb 9.7 L Hct 30.7 L MCV 85.5 MCH 27.0 MCHC 31.6 L RDW Std Deviation 47.7 H RDW Coeff of Lianne 15.3 H Plt Count 155 MPV 10.2 Immature Gran % (Auto) 1.8 Neut % (Auto) 52.1 Lymph % (Auto) 32.8 [place] % (Auto) 6.6 Eos % (Auto) 5.9 Baso % (Auto) 0.8 Neut # (Auto) 2.05 Lymph # (Auto) 1.29 [place] # (Auto) 0.26 Eos # (Auto) 0.23 Baso # (Auto) 0.03 Immature Gran # (Auto) 0.07 PT INR Sodium Potassium Chloride Carbon Dioxide Anion Gap BUN Creatinine Est Cr Clr Drug Dosing Est GFR ( Amer) Est GFR (Non-Af Amer) BUN/Creatinine Ratio Glucose POC Glucose 179 H 184 H Calcium 12/11/22 12/11/22 12/11/22 07:01 07:01 07:33 WBC RBC Hgb Hct MCV MCH MCHC RDW Std Deviation RDW Coeff of Lianne Plt Count MPV Immature Gran % (Auto) Neut % (Auto) Lymph % (Auto) [place] % (Auto) Eos % (Auto) Baso % (Auto) Neut # (Auto) Lymph # (Auto) [place] # (Auto) Eos # (Auto) Baso # (Auto) Immature Gran # (Auto) PT 22.8 H INR 2.2 H Sodium 141 Potassium 3.7 Chloride 109 H Carbon Dioxide 26 Anion Gap 6 BUN 23 Creatinine 1.04 Est Cr Clr Drug Dosing 73.1 Est GFR ( Amer) 79.9 Est GFR (Non-Af Amer) 68.9 BUN/Creatinine Ratio 22.1 H Glucose 136 H POC Glucose 142 H Calcium 8.7 PG Care Time/CCT Total # of Minutes Spent Total Time Spent with Patient: Total time spent is greater than 50% in coordination of care (as documented) at patient's floor/unit and/or counseling patient: Coding Level of Care Code 11046 SUB INP/OBS CARE 3/50MIN Diagnoses Seizure-like activity R56.9 Fall W19.XXXA CAD (coronary artery disease) I25.10 Associated angina: without angina Coronary Disease-Associated Artery/Lesion type: [place] artery [place] vs. 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
[2022-12-11] MEDS ORDERED: predniSONE 20 MG TAB PO STA (11:28)
[2022-12-11] MEDS: DICLOFENAC SOD 1% GEL 100 GM TUBE EXT SCH ×3 (11:43→21:39)
[2022-12-11] MEDS ORDERED: IPRATROPIUM BROMIDE/ALBUTEROL respimat INH INH SCH (13:00)
[2022-12-11] MEDS: ALBUTEROL HFA 8 GM INHALER INH SCH ×2 (15:20→19:10)
[2022-12-11] MEDS: IPRATROPIUM BROMIDE HFA INHALER INH SCH ×2 (15:20→19:11)
[2022-12-11] MEDS: WARFARIN SOD 7.5 MG TAB PO SCH (16:56)
[2022-12-11] MEDS: AMOXICILLIN/CLAVULANATE 875 MG TAB PO SCH (16:57)
[2022-12-11] MEDS: GABAPENTIN 300 MG CAP PO SCH (21:37)
[2022-12-11] MEDS: CHOLECALCIFEROL 1,000 UNITS 25 MCG TAB PO SCH (21:37)
[2022-12-11] MEDS: LACTULOSE SYRUP 20 GM/30 ML UDC PO SCH (21:37)
[2022-12-11] MEDS: ATORVASTATIN 40 MG TAB PO SCH (21:38)
[2022-12-11] MEDS: allopurinoL 100 MG TAB PO SCH (21:38)
[2022-12-11] MEDS ORDERED: ONDANSETRON ORAL SOLN 0.8 MG/1 ML PO STA (22:15)
[2022-12-11] MEDS ORDERED: ONDANSETRON 4 MG OD TAB ONE (22:26)
[2022-12-12] MEDS: ALBUTEROL HFA 8 GM INHALER INH SCH ×4 (07:06→19:33)
[2022-12-12] MEDS: IPRATROPIUM BROMIDE HFA INHALER INH SCH ×4 (07:06→19:33)
[2022-12-12 07:18] LABS: INR 2.6 (0.9-1.1); Prothrombin Time 26.6 Seconds (9.0-12.0)
[2022-12-12 07:20] LABS: Estimated Average Glucose 171 mg/dl; Hemoglobin A1C 7.6 % (4.5-5.6)
[2022-12-12] MEDS: FLUTICASONE FUROATE 100MCG 14 PUFFS/INHALER INH SCH (08:43)
[2022-12-12] MEDS: UMECLIDINIUM/VILANTEROL 62.5/25MCG 7 PUFFS/INHALER INH SCH (08:43)
[2022-12-12] MEDS: PANTOprazole 40 MG TAB PO SCH (08:44)
[2022-12-12] MEDS: CYANOCOBALAMIN (B-12) 500 MCG TABLET PO SCH (08:44)
[2022-12-12] MEDS: CARBIDOPA/LEVODOPA 25/100MG TAB PO SCH ×3 (08:44→20:46)
[2022-12-12] MEDS: GABAPENTIN 600 MG TAB PO SCH (08:44)
[2022-12-12] MEDS: TOPIRAMATE 100 MG TAB PO SCH ×2 (08:44→20:47)
[2022-12-12] MEDS: FEXOFENADINE HCL 180 MG TAB PO SCH (08:44)
[2022-12-12] MEDS: SENNA 8.6 MG TAB PO SCH (08:45)
[2022-12-12] MEDS: DICLOFENAC SOD 1% GEL 100 GM TUBE EXT SCH ×4 (08:45→20:48)
[2022-12-12] MEDS: AMOXICILLIN/CLAVULANATE 875 MG TAB PO SCH ×2 (08:45→17:01)
[2022-12-12] MEDS: FERROUS SULFATE 325 MG TAB PO SCH (08:45)
[2022-12-12] MEDS: LANTUS PER UNIT CHARGE SQ SCH ×2 (08:45→20:50)
[2022-12-12] MEDS: levETIRAcetam 500 MG TAB PO SCH ×2 (08:45→20:48)
[2022-12-12] MEDS: POLYETHYLENE (MIRALAX) 17 GM PACK PO SCH ×2 (08:45→20:49)
[2022-12-12] MEDS: INSULIN ASPART PER UNIT CHARGE SC SCH ×4 (08:46→20:50)
[2022-12-12] MEDS ORDERED: predniSONE 20 MG TAB PO SCH (09:00)
[2022-12-12] MEDS: traMADol HCL 50 MG TABLET PO PRN (13:01)
[2022-12-12] MEDS ORDERED: WARFARIN SOD 5 MG TAB PO SCH (16:00)
[2022-12-12] MEDS: busPIRone 5 MG TAB PO SCH ×2 (16:56→23:49)
[2022-12-12] MEDS: ACETAMINOPHEN 325 MG TAB PO SCH ×2 (16:56→20:46)
--- NOTE | 2022-12-12 17:34 | CT Scan Report ---
HEAD CT NONCONTRAST CT DOSE: 625.80 mGy.cm HISTORY: recent fall, head injury, L sided headache TECHNIQUE: Multiaxial CT images of the head were performed without the use of intravenous contrast. A utomated exposure control was utilized for this study. A dose lowering technique was utilized adheri ng to the principles of ALARA. Comparison: Head CT 12/09/2022. Findings: The paranasal sinuses and right mastoid air cells are clear. Chronic left mastoid effusion again noted. Prior bilateral lens replacement. 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 The calvarium and skull base are intact. There is no mass, hematoma, midlin e shift, acute infarct. White matter hypodensity is nonspecific but suggestive of microvascular ische tung change. The ventricles and sulci demonstrate mild age-related involutional changes. Impression: No significant change compared to the prior study. No acute intracranial abnormality. ACT 112: Negative or not required by law. Electronically signed by: Jc Che M.D. 12/12/2022 5:32 PM
--- NOTE | 2022-12-12 19:31 | Hospitalist Progress Note ---
Date of Service December 12, 2022 Assessment & Plan (1) Seizure-like activity: Plan: After his fall (or syncopal episode) at home he had several seizure-like events upon arrival at [facility]. Remains on keppra 1000mg BID + topamax 100mg BID. Topamax level in August was wnl. Keppra levels in August & September were mildly high. Apparently had a seizure-like event last pm s/p ativan with cessation. Uncertain if last pm the event was truly seizure or non-epileptiform event from severe anxiety. Either way continue above seizure meds. (2) Fall: Plan: mechanical? due to syncope? due to arrhythmia? due to seizure? due to knee OA with leg locking then buckling? will order 30-day event monitor post-d/c cont PT, OT (3) Anxiety: Plan: patient with ongoing anxiety about numerous issues would benefit from Rx thus, will start buspar 5mg TID would try to avoid benzos given his fall risk and other numerous medical problems (4) CAD (coronary artery disease): Plan: No evidence of any ischemic event leading to his fall at home. Cont statin. Uncertain why he is not on aspirin. Was on such earlier in the spring. Will d/w patient. Shavon main stent 2019 per records. Last heart cath - [address] Vincent - Shavon [facility]oses stent patent; 20 to 30% mid LAD disease. (5) Diabetes: Plan: Hba1c 7.7% in July 2022. Repeat a1c 7.6%. Due to steroid burst he is uncontrolled. Increase lantus to 25 units BID. Multiple adjustments made today to his novolog. Cont to monitor. (6) Parkinsonism: Plan: Cont carbidopa-levodopa TID (7) Rheumatoid arthritis: Plan: Steroid-dependent. Continue prednisone therapy 5mg daily. Increasing the prednisone to 40mg/day due to pulmonary issues as below. (8) Asthma: Plan: Steroid burst as below. (9) Chronic kidney disease, stage 3a: Plan: CrCl stable BMP am (10) Mechanical heart valve present: Plan: aortic valve INR Goal 2.5 to 3.5 INR today 2.6 cont coumadin 7.5mg Martin/Mo/Wed/Fri/Sat cont coumadin 5mg Tues/Thurs INR daily (11) Interstitial lung disease due to connective tissue disease: Plan: with likely exacerbation steroid burst - 40mg today again, then 30mg tomorrow, then cont to wean cont augmentin PO - total course of 7 days of IV/PO therapy cont bronchodilators (12) Osteoarthritis of left knee: Plan: could be contributing to increased fall risk (locking, catching, etc) cont voltaren gel 4gm QID ice prn (13) Headache: Plan: ongoing left frontal region CT head at admission neg for acute findings he feels headaches are worse in comparison to admission will repeat another head CT today place on scheduled tylenol TID for pain if he indeed hit his head at home this may represent headache from concussion alternatively he has migraines and this may be a status migraine could consider fioricet Plan PT, OT advising rehab ideally he go to the [facility] at / for such no beds at this time I asked social work to discuss with him the insurance decision regarding admission vs observation Admission and Anticipated Discharge Date Admission Date: December 09, 2022 Subjective last pm patient was feeling very anxious he apparently had received a phone call from his insurance co yesterday and was told by them that his hospitalization was only "approved for observation" he became anxious because he just paid off a large bill from prior hospital stays in [facility] (which were several years ago) he is worried he will have a large bill to pay from this hospital stay late pm he apparently had a seizure upon awakening from the seizure he stated he was "Being held down by multiple nurses" and "another nurse was banging on his chest" (??) he was upset as he believes "this isn't standard care for someone with seizure" I told him I would investigate what happened last pm nursing documentation shortly after Midnight mentions 'Seizure like activity' for which he was given ativan 2mg x 1 and the seizure like activity stopped he also continues to have a left frontal headache states it is "from hitting his head" when he awoke on the floor in his apartment he does have migraines but this feels different eating well per nursing flow sheets tele overnight wnl Review of Systems Review of Systems: gen - anxious cv - no cp, no orthopnea pulm - mild cough, mild sputum, mild dyspnea; felt very dyspneic last pm GI - no pain Physical Exam Physical Exam: gen - NAD, awake, alert; very anxious today neck - no JVD mouth - MM slightly dry heart - RRR, s1 s2, mechanical valve closure sound lungs - scant end-exp wheezing b/l, minimal rales bases, no increased work of breathing, good airation abd - soft NT ND BS+ ext - no edema, pulses 2+ b/l Results & Data Results & Data Vital Signs (Past 12 Hours) Vital Signs Temp Pulse Pulse Resp BP BP Pulse Ox 12/12/22 19:26 36.5 C 63 20 130/74 100 12/12/22 16:22 61 18 92 12/12/22 16:20 68 12/12/22 15:51 37.0 C 70 18 103/58 L 94 12/12/22 12:46 36.8 C 67 19 104/61 97 12/12/22 11:19 60 18 99 12/12/22 10:24 12/12/22 08:39 36.4 C L 60 16 104/60 97 12/12/22 08:09 60 O2 Del Method 12/12/22 19:26 Room Air 12/12/22 16:22 Room Air 12/12/22 16:20 12/12/22 15:51 Room Air 12/12/22 12:46 Room Air 12/12/22 11:19 Room Air 12/12/22 10:24 Room Air 12/12/22 08:39 Room Air 12/12/22 08:09 Laboratory Results Laboratory Results - last 24 hr 12/11/22 12/12/22 12/12/22 20:19 00:10 06:21 PT INR POC Glucose 310 H* 241 H Estimat Average Glucose 171 Hemoglobin A1c 7.6 H 12/12/22 12/12/22 12/12/22 06:21 07:20 11:23 PT 26.6 H INR 2.6 H POC Glucose 164 H 230 H Estimat Average Glucose Hemoglobin A1c 12/12/22 16:26 PT INR POC Glucose 273 H Estimat Average Glucose Hemoglobin A1c PG Care Time/CCT Total # of Minutes Spent Total Time Spent with Patient: Total time spent is greater than 50% in coordination of care (as documented) at patient's floor/unit and/or counseling patient: Coding Level of Care Code 17587 SUB INP/OBS CARE 3/50MIN Diagnoses Seizure-like activity R56.9 Fall W19.XXXA Anxiety F41.9 CAD (coronary artery disease) I25.10 Associated angina: without angina Coronary Disease-Associated Artery/Lesion type: [place] artery [place] vs. 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 insulin use: with mcc use Diabetes mellitus type: type 2 Parkinsonism G20 Rheumatoid arthritis M06.9 Rheumatoid arthritis location: unspecified site Rheumatoid factor presence: unspecified presence Asthma J45.909 Chronic kidney disease, stage 3a N18.3 Mechanical heart valve present Z95.2 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; M35.9 Osteoarthritis of left knee M17.12 Headache R51.9; G89.29 Headache chronicity pattern: chronic headache Headache type: unspecified Intractability: not intractable (4) CAD (coronary artery disease) Associated angina: without angina Coronary Disease-Associated Artery/Lesion type: [place] artery [place] vs. transplanted heart: [place] heart Qualified Code(s): I25.10 - Atherosclerotic heart disease of [place] coronary artery without angina pectoris (5) Diabetes Diabetes mellitus complication detail: with polyneuropathy Diabetes mellitus complication status: with neurologic complications Diabetes mellitus mcc insulin use: with mcc use Diabetes mellitus type: type 2 Qualified Code(s): E11.42 - Type 2 diabetes mellitus with diabetic polyneuropathy; Z79.4 - skilled nursing (current) use of insulin (7) Rheumatoid arthritis Rheumatoid arthritis location: unspecified site Rheumatoid factor presence: unspecified presence Qualified Code(s): M06.9 - Rheumatoid arthritis, unspecified (13) Headache Headache chronicity pattern: chronic headache Headache type: unspecified Intractability: not intractable Qualified Code(s): R51.9 - Headache, unspecified; G89.29 - Other chronic pain
[2022-12-12] MEDS: GABAPENTIN 300 MG CAP PO SCH (20:47)
[2022-12-12] MEDS: CHOLECALCIFEROL 1,000 UNITS 25 MCG TAB PO SCH (20:47)
[2022-12-12] MEDS: ATORVASTATIN 40 MG TAB PO SCH (20:47)
[2022-12-12] MEDS: allopurinoL 100 MG TAB PO SCH (20:48)
[2022-12-12] MEDS: LACTULOSE SYRUP 20 GM/30 ML UDC PO SCH (20:49)
[2022-12-13] MEDS: ALBUTEROL HFA 8 GM INHALER INH SCH (07:14)
[2022-12-13] MEDS: IPRATROPIUM BROMIDE HFA INHALER INH SCH (07:14)
[2022-12-13 07:41] LABS: INR 2.9 (0.9-1.1); Prothrombin Time 29.5 Seconds (9.0-12.0)
[2022-12-13] MEDS ORDERED: IPRATROPIUM BROMIDE HFA INHALER INH PRN (08:18)
[2022-12-13] MEDS: POLYETHYLENE (MIRALAX) 17 GM PACK PO SCH (08:33)
[2022-12-13] MEDS: UMECLIDINIUM/VILANTEROL 62.5/25MCG 7 PUFFS/INHALER INH SCH (08:33)
[2022-12-13] MEDS: FLUTICASONE FUROATE 100MCG 14 PUFFS/INHALER INH SCH (08:33)
[2022-12-13] MEDS: FEXOFENADINE HCL 180 MG TAB PO SCH (08:34)
[2022-12-13] MEDS: PANTOprazole 40 MG TAB PO SCH (08:34)
[2022-12-13] MEDS: AMOXICILLIN/CLAVULANATE 875 MG TAB PO SCH (08:34)
[2022-12-13] MEDS: GABAPENTIN 600 MG TAB PO SCH (08:34)
[2022-12-13] MEDS: CYANOCOBALAMIN (B-12) 500 MCG TABLET PO SCH (08:34)
[2022-12-13] MEDS: FERROUS SULFATE 325 MG TAB PO SCH (08:34)
[2022-12-13] MEDS: busPIRone 5 MG TAB PO SCH (08:34)
[2022-12-13] MEDS: SENNA 8.6 MG TAB PO SCH (08:34)
[2022-12-13] MEDS: CARBIDOPA/LEVODOPA 25/100MG TAB PO SCH (08:35)
[2022-12-13] MEDS: ACETAMINOPHEN 325 MG TAB PO SCH (08:35)
[2022-12-13] MEDS: TOPIRAMATE 100 MG TAB PO SCH (08:35)
[2022-12-13] MEDS: levETIRAcetam 500 MG TAB PO SCH (08:35)
[2022-12-13] MEDS: DICLOFENAC SOD 1% GEL 100 GM TUBE EXT SCH ×2 (08:36→12:01)
[2022-12-13] MEDS: LANTUS PER UNIT CHARGE SQ SCH (08:36)
[2022-12-13] MEDS: INSULIN ASPART PER UNIT CHARGE SC SCH ×2 (08:36→12:00)
[2022-12-13] MEDS ORDERED: predniSONE 10 MG TABLET PO SCH (09:00)
--- NOTE | 2022-12-13 13:30 | Discharge Summary ---
Date of Service December 13, 2022 Admission HPI Per Admitting Provider Xavi is a 77-year-old male with a past medical history of seizure-like activity, parkinsonism, CKD 3, mechanical heart valve on Coumadin. Goal INR 2.53.5, DM2, RA/polymyositis on daily prednisone, CAD who presented emergency department after a fall and who experienced seizure-like activity after arrival. Per ER: initially concerned about seizure like activity. 1x possible seizure, RUE, non responsive during initial event --> got keppra, 1mg ativan then pt improved shortly after. Seemed confused/post-ictal afterwards. Second event which again responded well to ativan 1mg after. Had declined referral to [facility]/EMU. Pt presented as he was using the restroom at home, and then woke up on the floor and din't remember falling off the toilet. Discharge home was discussed with pt, had a 3rd possible event with ?partial conciousness and was recommended for observation .Pt reports episodes happen when cold and under stress. Per Pt: Tired, somnolent Awaiting injection of gel into his left knee for knee replacement. Endorses chronic L knee pain, denies hip pain. Denies back pain. had R SI joint surgery Denies chest pain, chest pressure, shortness of breath at assessment. Notes his oxygen was a little low 90s at home, but has been normal here. Denies SoB/cough, thinks maybe a little short of breath earlier in the week. He feels he did aspirate earlier this week which happens intermittently due to his Denies lightheadedness, dizziness. Endorses fatigue Reports he hasn't had seizures 'at least for 20 minutes'. He reports he hasn't had any at all in the past few weeks. Denies recent change in symptoms. No fevers, chills, sweats, abdominal pain. Was using the bathroom and then woke up on the floor and called EMS. Denies bowel or bladder incontinence. Reprots he had an EEG which had not correlated with seizures in the past. Was recommended to followup with an epilepsy clinic, but has not followed up with this yet. He feels his seizures are brought on by being cold and notes he has been more cold with some flickering lights at home. Tired, shakey, sleep at time of assessment. Medical History: Reviewed Medications: Reviewed Surgical History: Reviewed Family history: Reviewed Allergies: Reviewed Social History: Reviewed Code Status: Full Code Discharge Exam gen - NAD, awake, alert; very anxious today neck - no JVD mouth - MM slightly dry heart - RRR, s1 s2, mechanical valve closure sound lungs - scant end-exp wheezing b/l, minimal rales bases, no increased work of breathing, good airation abd - soft NT ND BS+ ext - no edema, pulses 2+ b/l Discharge Data Allergies Allergy/AdvReac Type Severity Reaction Status Date / Time bee venom protein (honey bee) Allergy Severe anaphylaxis Verified 12/09/22 17:08 Iodinated Contrast Media Allergy Severe Anaphylaxis Verified 12/09/22 17:08 shellfish derived Allergy Severe Anaphylaxis Verified 12/09/22 17:08 doxazosin Allergy Intermediate Rash Verified 12/09/22 17:08 tamsulosin [From Flomax] Allergy Intermediate Itching Verified 12/09/22 17:08 Tetanus Vaccines and Toxoid Allergy Unknown Unknown Verified 12/09/22 17:08 lamotrigine AdvReac Intermediate Confusion Verified 12/09/22 17:08 oxycodone [From Percocet] AdvReac Intermediate nausea/vomi Verified 12/09/22 17:08 ting propoxyphene [From Darvon] AdvReac Intermediate nausea/vomi Verified 12/09/22 17:08 ting Consultations 12/09/22 17:23 ED Decision to Admit Stat Ordered Studies 12/09/22 14:03 CT head/brain wo con Stat 12/12/22 15:27 CT head/brain wo con Routine Hospital Course (1) Seizure-like activity: After his fall (or syncopal episode) at home he had several seizure-like events upon arrival at [facility]. Remains on keppra 1000mg BID + topamax 100mg BID. Topamax level in August was wnl. Keppra levels in August & September were mildly high. Apparently had a seizure-like event last pm s/p ativan with cessation. Uncertain if last pm the event was truly seizure or non-epileptiform event from severe anxiety. Either way continue above seizure meds. (2) Fall: mechanical? due to syncope? due to arrhythmia? due to seizure? due to knee OA with leg locking then buckling? will order 30-day event monitor post-d/c cont PT, OT (3) Anxiety: patient with ongoing anxiety about numerous issues would benefit from Rx thus, will start buspar 5mg TID would try to avoid benzos given his fall risk and other numerous medical problems (4) CAD (coronary artery disease): No evidence of any ischemic event leading to his fall at home. Cont statin. Uncertain why he is not on aspirin. Was on such earlier in the spring. Will d/w patient. Shavon main stent 2019 per records. Last heart cath - [address] Vincent - Shavon main stent patent; 20 to 30% mid LAD disease. (5) Diabetes: Hba1c 7.7% in July 2022. Repeat a1c 7.6%. Due to steroid burst he is uncontrolled. Increase lantus to 25 units BID. Multiple adjustments made today to his novolog. Cont to monitor. (6) Parkinsonism: Cont carbidopa-levodopa TID (7) Rheumatoid arthritis: Steroid-dependent. Continue prednisone therapy 5mg daily. Increasing the prednisone to 40mg/day due to pulmonary issues as below. (8) Asthma: Steroid burst as below. (9) Chronic kidney disease, stage 3a: CrCl stable BMP am (10) Mechanical heart valve present: aortic valve INR Goal 2.5 to 3.5 INR today 2.6 cont coumadin 7.5mg Martin/Mo/Sun/Sun/Sat cont coumadin 5mg Tu/Th INR daily (11) Interstitial lung disease due to connective tissue disease: with likely exacerbation steroid burst - 40mg today again, then 30mg tomorrow, then cont to wean cont augmentin PO - total course of 7 days of IV/PO therapy cont bronchodilators (12) Osteoarthritis of left knee: could be contributing to increased fall risk (locking, catching, etc) cont voltaren gel 4gm QID ice prn (13) Headache: ongoing left frontal region CT head at admission neg for acute findings he feels headaches are worse in comparison to admission will repeat another head CT today place on scheduled tylenol TID for pain if he indeed hit his head at home this may represent headache from concussion alternatively he has migraines and this may be a status migraine could consider fioricet Plan PT, OT advising rehab ideally he go to the [facility] at d/c for such no beds at this time I asked social work to discuss with him the insurance decision regarding admission vs observation Home Health Attestation I certify that this patient is under my care and that I, or a physicians periodontal assistant working with me, had a face to-face encounter that meets the home health zndh-ba-tyde encounter requirements with this patient. The encounter with the patient was in whole, or in part, for the following medical condition, which is the primary reason for home health care (list medical condition): I certify that, based on my findings, the following services are medically necessary home health services: My clinical findings support the need for the above services because: Further, I certify that my clinical findings support that this patient is homebound (i.e. absences from home require considerable and taxing effort and are for medical reasons or [employer] services or infrequently or of short duration when for other reasons) because: Certification for Home Health Services: Based on the above findings, I certify that this patient is confined to the home and needs intermittent chcf care, physical therapy and/or speech therapy or continues to need occupational therapy. The patient is under my care, and I have initiated the establishment of the plan of care. This patient will be followed by a physician who will periodically review the plan of care. Discharge Plan Discharge Items Patient Disposition: Home - Home Health Services Reason For Visit: Fall on floor Discharge Diagnosis: 1. unwitnessed fall vs syncopal spell (passing out spell) vs seizure vs other 2. headache - due to possible concussion from hitting head; CT head x 2 negative 3. seizures 4. interstitial lung disease with exacerbation 5. chronic prednisone use 6. chronic coumadin use for mechanical valve; discharge INR 2.9 7. left knee arthritis 8. anxiety Activity: Resume your previous activity Non-emergency contact: Primary Care Provider Call non-emergency contact if: you have any medication questions, your symptoms worsen and you have a fever Follow-up/Referrals: Britton Sheikh MD [Physician] - 02/06/23 4:00 pm Tan Hammond DO [Primary Care Provider] - (within 5 days ) Diet: Carb Consistent or DM2 and Heart Healthy Addtl Attending Provider Instructions: Mr Bradford, You were hospitalized after you woke up on the floor at home. It is uncertain what caused the event. A syncopal spell/passing out spell may have occurred. You could have had a seizure. You could have had a heart arrhythmia that caused it. In addition you had seizures upon arrival to [facility] and you appeared to have a flare-up/exacerbation of your interstitial lung disease. Recommendations - 1. for your breathing/lung disease flare - * prednisone taper starting 12/14/22; starts with 20mg and then tapers down to your usual dose of 5mg/day * amoxicillin-clavulanate antibiotic - 1 tablet twice daily x 3 days; start this TONIGHT; take with food * continue albuterol inhaler every 4 hours as needed for cough/congestion/wheeze over the next few days 2. for anxiety - * buspirone 5mg twice daily, first dose tonight 3. your INR today is 2.9 (goal is 2.5 to 3.5); continue your usual coumadin schedule with the following exception - TODAY, Sunday12/13/22 - take 5mg only (instead of 7.5mg). Please have your INR rechecked in 2 days (SUNDAY) as the antibiotics could cause your INR to rise quickly. 4. you can use ypnf-iep-czxeksk voltaren gel - 4 grams to left knee up to 4 times a day as desired for knee pain 5. Dr Chau's office will be setting up the 30-day heart monitor to check for abnormal heart rhythms 6. no changes in your seizure medications at this time 7. continue your night-time oxygen as previous Follow-up - see separate section Return to [facility] if - * you have fevers over 100 degrees * you have worsening shortness of breath despite taking your inhalers, prednisone, etc * you have severe dizziness or lightheadedness or falls * any other concerns It was our pleasure to care for you! Dr Kelly Pending Studies at Discharge: No Stand-Alone Forms: My [facility] [place] [employer], Smoking Cessation Medications and DC Order Prescriptions: New buspirone 5 mg Tablet 5 mg PO BID Qty: 30 0RF Rx Instructions: for anxiety amoxicillin-pot clavulanate 875-125 mg Tablet 1 tab PO BIDM 3 Days Qty: 6 0RF prednisone 5 mg tablet 5 mg PO DIRECTED Qty: 14 0RF Rx Instructions: start 12/14: 4 tabs day 1; 3 tabs days 2/3; 2 tabs days 4/5. Then resume normal, chronic daily dose of 5mg. Continued Trelegy Ellipta 100-62.5-25 mcg blister with device 1 inh inhalation QAM Qty: 60 5RF levetiracetam [Keppra] 500 mg tablet 1,000 mg PO BID Qty: 360 3RF carbidopa-levodopa [Sinemet] 25-100 mg tablet 1 tab PO TID Qty: 270 2RF cholecalciferol (vitamin D3) [Vitamin D3] 50 mcg (2,000 unit) capsule 4,000 unit PO HS atorvastatin 40 mg tablet 40 mg PO HS fexofenadine [Karlee Allergy] 180 mg Tablet 180 mg PO QAM acetaminophen 325 mg Tablet 650 mg PO Q4H PRN (Reason: pain) Qty: 30 0RF Rx Instructions: OTC albuterol sulfate [Ventolin HFA] 90 mcg/actuation HFA aerosol inhaler 2 puff INHALATION Q4H PRN (Reason: Shortness Of Breath Or Wheezing) diclofenac sodium [Voltaren Arthritis Pain] 1 % Gel 2 g TOPICAL TID PRN (Reason: Pain) Rx Instructions: left knee ferrous sulfate 325 mg (65 mg iron) Tablet,Delayed Release (Dr/Ec) 325 mg PO QAM Qty: 30 0RF prednisone 5 mg Tablet 5 mg PO QAM gabapentin 300 mg capsule 600 mg PO QAM Rx Instructions: 600mg in am/300mg in pm pantoprazole [Protonix] 20 mg Tablet,Delayed Release (Dr/Ec) 20 mg PO QAM potassium chloride 20 mEq Tablet Extended Release 20 meq PO HS cyanocobalamin (vitamin B-12) [Vitamin B-12] 1,000 mcg Tablet Extended Release 1,000 mcg PO QAM magnesium 250 mg Tablet 250 mg PO QAM ondansetron 4 mg tablet,disintegrating 4 mg PO Q6H PRN (Reason: nausea and vomiting) Qty: 30 0RF Trulicity 1.5 mg/0.5 mL pen injector 1.5 mg SUBCUT WE Rx Instructions: Take fri tramadol 50 mg tablet 50 mg PO Q6H PRN (Reason: pain, moderate) Qty: 15 0RF allopurinol 100 mg tablet 100 mg PO HS insulin glargine [Lantus Solostar U-100 Insulin] 100 unit/mL (3 mL) insulin pen 20 unit SUBCUT BID polyethylene glycol 3350 [Miralax] 17 gram/dose powder 17 g PO BID furosemide 20 mg tablet 20 mg PO QAM sennosides [Senokot] 8.6 mg tablet 8.6 mg PO QAM insulin aspart U-100 [Novolog FlexPen U-100 Insulin] 100 unit/mL (3 mL) insulin pen 1 sliding scale dose subcut ACHS Rx Instructions: supplemental scale for meal-time coverage and bed-time coverage. calcium polycarbophil [Fiber (calcium polycarbophil)] 625 mg Tablet 625 mg PO QAM Qty: 30 0RF Rx Instructions: OTC gabapentin 300 mg capsule 300 mg PO HS topiramate 100 mg tablet 100 mg PO BID Saline Mist 0.65 % aerosol,spray 2 spray intranasal QID PRN (Reason: DRYNESS) lactulose 20 gram/30 mL solution 20 g PO PM warfarin 5 mg tablet 5 - 7.5 mg PO DIRECTED Qty: 30 0RF Rx Instructions: Take according to anticoagulation clinic. 5mg on Sunday/. 7.5mg on Sunday, Sunday, Sunday, Sunday, Sunday. Discontinued ketorolac 10 mg tablet 10 mg PO HS Discharge Orders: Discharge Order (Routine); Ordered 12/13/22 Ordered By: Toni Sen/Other Patient Handouts: Managing Type 2 Diabetes, Special Foot Care for Diabetes Admission Data Admit Date/Time: 12/09/22 18:16 Attending Provider: Toni Kelly Admit Provider: Jone Pringle Primary Care Provider: Tan Hammond Other Providers: Jone Pringle ; Dov Dacosta Other Interventions: Discharge Summary Assessment (RN) Last Done: 12/13/22 12:46 Coding Diagnoses Seizure-like activity R56.9 Fall W19.XXXA Anxiety F41.9 CAD (coronary artery disease) I25.10 Coronary Disease-Associated Artery/Lesion type: [place] artery [place] vs. transplanted heart: [place] heart Associated angina: without angina Diabetes E11.42; Z79.4 Diabetes mellitus type: type 2 Diabetes mellitus [facility] insulin use: with [facility] use Diabetes mellitus complication status: with neurologic complications Diabetes mellitus complication detail: with polyneuropathy Parkinsonism G20 Rheumatoid arthritis M06.9 Rheumatoid arthritis location: unspecified site Rheumatoid factor presence: unspecified presence Asthma J45.909 Chronic kidney disease, stage 3a N18.3 Mechanical heart valve present Z95.2 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; M35.9 Osteoarthritis of left knee M17.12 Headache R51.9; G89.29 Headache chronicity pattern: chronic headache Headache type: unspecified Intractability: not intractable
== END 2022-12-13 14:00 | disposition home health service (06) | DRG 101 ==
LOC: ED 13:20 → SUATTDRO 18:16 → 2E 18:16

== ENCOUNTER 2022-12-19 10:13 | Inpatient (IN) ==
--- NOTE | 2022-12-19 10:37 | Emergency Department Note ---
History of Present Illness General Chief complaint: Headache Time Seen by Provider: 12/19/22 10:27 Source: patient, EMS, RN notes reviewed and old records reviewed (I have reviewed recent hospitalizations as well as CAT scan report) Mode of arrival: EMS Limitations: no limitations History of Present Illness This patient 77-year-old male who comes in with a left-sided headache he fell about a week ago was in the hospital in fact had 2 CAT scans of his head he had possible seizure-like activity at that time and was hospitalized for it. He had 2 negative CTs of the head he was at his doctor's office today and had a headache and nausea and felt dizzy he says this has been ongoing issues since he fell and is no not different or worse. Apparently when the EMS was called out they were called out for patient that was tachycardic and altered but the patient was not when they arrived. He did say he felt very dizzy there but feels better now. No chest pain no shortness of breath no focal numbness weakness or difficulty speaking or swallowing he is on Coumadin. He is also diabetic. He says his vision has been somewhat off since he fell. He has had no falls since he left the hospital Home Medications Medication Instructions Recorded Confirmed Type atorvastatin 40 mg tablet 40 mg PO HS 05/28/20 12/19/22 History fexofenadine 180 mg tablet 180 mg PO QAM 02/11/21 12/19/22 History (Karlee Allergy) allopurinol 100 mg tablet 100 mg PO HS 04/10/21 12/19/22 History cholecalciferol (vitamin D3) 50 4,000 unit PO HS 07/14/21 12/19/22 History mcg (2,000 unit) capsule (Vitamin D3) insulin glargine 100 unit/mL (3 20 unit subcut BID 07/26/21 12/19/22 History mL) subcutaneous pen (Lantus Solostar U-100 Insulin) acetaminophen 325 mg tablet 650 mg PO Q4H PRN pain #30 tabs 08/04/21 12/19/22 Rx fluticasone fur. 100 mcg-umeclid 1 inh inhalation QAM #60 ea 09/06/21 12/19/22 Rx 62.5 mcg-vilant 25 mcg inhalat.powder (Trelegy Ellipta) albuterol sulfate 90 mcg/actuation 2 puff inhalation Q4H PRN 09/27/21 12/19/22 H istory aerosol inhaler (Ventolin HFA) Shortness Of Breath Or Wheezing polyethylene glycol 3350 17 17 g PO BID 10/04/21 12/19/22 History gram/dose oral powder (Miralax) furosemide 20 mg tablet 20 mg PO QAM 11/24/21 12/19/22 History sennosides 8.6 mg tablet (Senokot) 8.6 mg PO QAM 11/24/21 12/19/22 History insulin aspart U-100 100 unit/mL 1 sliding scale dose subcut ACHS 02/26/22 History (3 mL) subcutaneous pen (Novolog FlexPen U-100 Insulin aspart) diclofenac sodium 1 % topical gel 2 g topical TID PRN Pain 05/21/22 12/19/22 History (Voltaren Arthritis Pain) ferrous sulfate 325 mg (65 mg 325 mg PO QAM #30 tabs 05/26/22 12/19/22 Rx iron) tablet,delayed release levetiracetam 500 mg tablet 1,000 mg PO BID #360 tabs 08/03/22 12/19/22 Rx (Keppra) cyanocobalamin (vitamin B-12) 1,000 mcg PO QAM 08/14/22 12/19/22 History 1,000 mcg tablet,extended release (Vitamin B-12 ER) gabapentin 300 mg capsule 600 mg PO QAM 08/14/22 12/19/22 History magnesium 250 mg tablet 250 mg PO QAM 08/14/22 12/19/22 History pantoprazole 20 mg tablet,delayed 20 mg PO QAM 08/14/22 12/19/22 History release (Protonix) potassium chloride 20 mEq 20 meq PO HS 08/14/22 12/19/22 History tablet,extended release prednisone 5 mg tablet 5 mg PO QAM 08/14/22 12/19/22 History ondansetron 4 mg disintegrating 4 mg PO Q6H PRN nausea and 08/24/22 12/19/22 Rx tablet vomiting #30 tabs calcium polycarbophil 625 mg 625 mg PO QAM #30 tabs 09/14/22 12/19/22 Rx tablet (Fiber (calcium polycarbophil)) gabapentin 300 mg capsule 300 mg PO HS 09/30/22 12/19/22 History lactulose 20 gram/30 mL oral 20 g PO PM PRN Constipation 09/30/22 12/19/22 History solution sodium chloride 0.65 % nasal spray 2 spray intranasal QID PRN DRYNESS 09/30/22 12/19/22 History aerosol (Saline Mist) topiramate 100 mg tablet 100 mg PO BID 09/30/22 12/19/22 History carbidopa 25 mg-levodopa 100 mg 1 tab PO TID #270 tabs 11/16/22 12/19/22 Rx tablet (Sinemet) dulaglutide 1.5 mg/0.5 mL 1.5 mg subcut WE 12/09/22 12/19/22 History subcutaneous pen injector (Trulicity) tramadol 50 mg tablet 50 mg PO Q6H PRN pain, moderate 12/13/22 12/19/22 Rx #15 tabs warfarin 5 mg tablet 5 - 7.5 mg PO DIRECTED #30 tabs 12/13/22 12/19/22 Rx Allergies Allergy/AdvReac Type Severity Reaction Status Date / Time bee venom protein (honey bee) Allergy Severe anaphylaxis Verified 12/09/22 17:08 Iodinated Contrast Media Allergy Severe Anaphylaxis Verified 12/09/22 17:08 shellfish derived Allergy Severe Anaphylaxis Verified 12/09/22 17:08 doxazosin Allergy Intermediate Rash Verified 12/09/22 17:08 tamsulosin [From Flomax] Allergy Intermediate Itching Verified 12/09/22 17:08 Tetanus Vaccines and Toxoid Allergy Unknown Unknown Verified 12/09/22 17:08 lamotrigine AdvReac Intermediate Confusion Verified 12/09/22 17:08 oxycodone [From Percocet] AdvReac Intermediate nausea/vomi Verified 12/09/22 17:08 ting propoxyphene [From Darvon] AdvReac Intermediate nausea/vomi Verified 12/09/22 17:08 ting Past Med/Surg History Medical History SHYANN (acute kidney injury) Anemia history of blood transfusion, 2020 Anxiety Aortic ectasia, thoracic Aspiration pneumonia hx of--per pt was due to pain medications Asthma inhaler daily and prn CAD (coronary artery disease) follows with Dr. Chau Chronic dyspnea Chronic kidney disease, stage 3a Chronic pulmonary aspiration Chronic respiratory failure with hypoxia Chronic use of steroids Coagulopathy Constipated Current use of hair cutter anticoagulation warfarin daily Depression Diabetes IDDM Diabetic peripheral neuropathy Dysphagia Edema Fall Generalized weakness GI bleed Gout Headache Hearing deficit Heart failure > 70% History of seizures last 2019--on Keppra/Topiramate--follows with Dr. 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 inhaler daily and prn and uses 2L N/C at hs Kidney stones Migraine Neurogenic claudication due to lumbar spinal stenosis On home oxygen therapy 2L at hs Osteoarthritis of left knee Pancytopenia Parkinsonism per pt has a difficulty swallowing, states certain foods can be difficult to eat Pneumonia hx of, per pt last admission @ [facility] was 05/2022 Polymyositis Prostate cancer radiation Pyelonephritis Rheumatoid arthritis Seizure disorder Seizure-like activity Shortness of breath per pt on with exertion Somatic dysfunction of cervical region Stroke-like symptom 12/2019, w/ blurry vision and dysarthria. mild R sided wkness. attending outpatient physical therapy w/ good improvement in strength (5+/5 strength of all 4 extremities as of 05/28/20) Supratherapeutic INR Thoracic ascending aortic aneurysm s/p repair TIA (transient ischemic attack) 2019--no deficits--follows with Dr. Sheikh Urinary tract infection Surgical History H/O hernia repair History of aortic valve replacement 2003 @ [facility] [place], [place] History of appendectomy History of bilateral cataract extraction History of cardiac cath x3--2017 @ [facility] with 1 stent placed/2019 @ [facility]/last 04/2021 @ [facility] History of cholecystectomy History of colonoscopy History of esophagogastroduodenoscopy (EGD) History of fusion of cervical spine normal ROM History of gastric bypass 2007--lap band History of heart artery stent x1--2017 @ [facility] History of lumbar spinal fusion History of lung biopsy 2019 History of partial nephrectomy 1986 on right kidney History of prostate biopsy malignant History of tonsillectomy History of tooth extraction all upper teeth removed Mechanical heart valve present Family History Mother , age 87 of pulmonary issues Rheumatoid arthritis Father , in his mid 80s of a stroke Stroke Other Coronary heart disease No family history of adverse response to anesthesia Social History Smoking Status: Never smoker Second Hand Exposure: No; Do You Dip or Chew Tobacco: No; Hx Alcohol Use: No Hx Substance Use: No Preferred Language: Hong Konger Communication Ability: Effective Hearing Ability: Hard of Hearing Maintenance Of Way Clerk Required: No Beliefs That Will Affect Care: None marital status: / Current Living Situation: Personal Care Facility Current Living Situation Comment: [place] [facility] current occupational status: retired 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 How many Children do You have: 2 How many Children do You have Comment: son Feels Safe at Home: Yes Assistive Devices: Walker Review of Systems A total of 10 systems reviewed and were otherwise negative Physical Exam Vital Signs Vital Signs - 24 hr 12/19/22 10:13 12/19/22 10:34 12/19/22 10:30 Temperature 36.8 C Temperature Source Oral Pulse Rate 71 71 71 Pulse Rate [Apical] Pulse Rate from SpO2 Sensor Pulse Rhythm Regular Pulse Rhythm [Apical] Respiratory Rate 15 15 Respiratory Effort / Characteristics Non-Labored Respiratory Depth Normal Respiratory Pattern Regular Blood Pressure 112/41 L Blood Pressure [Right Arm] Blood Pressure Mean 64 Blood Pressure Mean [Right Arm] Blood Pressure Position [Right Arm] Pulse Oximetry 100 100 Oxygen Delivery Method Room Air Room Air Oxygen Flow Rate Sepsis Recent Fever Within 48 Hours No Sepsis New/Unexplained Change in Mental Status N/A Sepsis Action Taken by Nursing No Action Required Oxygen Flow Rate - Titration Pulse Oximetry Post Tiitration 12/19/22 10:21 12/19/22 10:30 12/19/22 11:00 Temperature Temperature Source Pulse Rate 76 70 Pulse Rate [Apical] 71 Pulse Rate from SpO2 Sensor 80 71 Pulse Rhythm Pulse Rhythm [Apical] Respiratory Rate 19 20 18 Respiratory Effort / Characteristics Non-Labored Spontaneous Respiratory Depth Normal Respiratory Pattern Regular Blood Pressure 112/41 L 104/61 Blood Pressure [Right Arm] 108/60 Blood Pressure Mean 64 75 Blood Pressure Mean [Right Arm] 76 Blood Pressure Position [Right Arm] Lying Pulse Oximetry 96 99 97 Oxygen Delivery Method Nasal Cannula Oxygen Flow Rate 3 Sepsis Recent Fever Within 48 Hours Sepsis New/Unexplained Change in Mental Status Sepsis Action Taken by Nursing Oxygen Flow Rate - Titration Pulse Oximetry Post Tiitration 12/19/22 11:20 12/19/22 11:58 12/19/22 13:22 Temperature Temperature Source Pulse Rate Pulse Rate [Apical] 73 Pulse Rate from SpO2 Sensor Pulse Rhythm Pulse Rhythm [Apical] Regular Respiratory Rate 16 Respiratory Effort / Characteristics Non-Labored Spontaneous Respiratory Depth Normal Respiratory Pattern Regular Blood Pressure Blood Pressure [Right Arm] 108/69 Blood Pressure Mean Blood Pressure Mean [Right Arm] 82 Blood Pressure Position [Right Arm] Lying Pulse Oximetry 78 L 97 Oxygen Delivery Method Nasal Cannula Nasal Cannula Nasal Cannula Oxygen Flow Rate 0 3 2 Sepsis Recent Fever Within 48 Hours Sepsis New/Unexplained Change in Mental Status Sepsis Action Taken by Nursing Oxygen Flow Rate - Titration 3 0 Pulse Oximetry Post Tiitration 99 100 General: Well developed well nourished older male who appears in no acute distress, breathing comfortably on room air. Normal speech. Alert and orient x3. No slurred speech HEENT: Normal cephalic atraumatic. Pupils are equal round and reactive to light. Extraocular movements are intact. Oropharynx is pink with moist mucous membranes. No swelling of the mouth lips or tongue. No tenderness .no external signs of trauma. No redness or tenderness over the temporal artery Neck: Supple with a midline trachea. No meningeal signs or stiffness, no JVD or bruits. No Stridor. Chest: Clear to auscultation bilaterally. No wheezes or rhonchi. No increased work of breathing. Heart: Regular rate and rhythm without murmurs or gallops. Abdomen: Soft nontender, nondistended without rebound guarding or rigidity. Extremities: No cyanosis clubbing or edema. No calf tenderness or assymetry Spine/Back. Non tender to palpation. No CVA tenderness Skin: Good turgor without rashes. Neurologic exam: Cranial nerves two through 12 are intact. Motor and sensation are intact and symmetrical throughout. No tremor. No pronator drift. Course Administered Medications Discontinued Medications Sodium Chloride (Nss 1000ml) 250 mls @ 999 mls/hr IV .Q16M ONE Stop: 12/19/22 11:56 Last Infusion: 12/19/22 13:23 Dose: 0 mls/hr Documented By: Admin: 12/19/22 11:57 Dose: 999 mls/hr Documented By: LAURYN Levetiracetam 1,000 mg/ Sodium (Chloride) 110 mls @ 440 mls/hr IV NOW STA Stop: 12/19/22 13:20 Last Admin: 12/19/22 13:21 Dose: 440 mls/hr Documented By: LAURYN Lorazepam (Lorazepam 2 Mg/1 Ml Vial) Confirm Administered Dose 2 mg .ROUTE .STK- MED ONE Stop: 12/19/22 13:04 Last Admin: 12/19/22 13:07 Dose: Not Given Documented By: LAURYN Lorazepam (Lorazepam 2 Mg/1 Ml Vial) 1 mg IV NOW STA Stop: 12/19/22 13:03 Last Admin: 12/19/22 13:07 Dose: 1 mg Documented By: LAURYN Ondansetron HCl (Ondansetron Inj 2 Mg/Ml 2 Ml Vial) 4 mg IV NOW STA Stop: 12/19/22 11:42 Last Admin: 12/19/22 11:57 Dose: 4 mg Documented By: LAURYN Medical Decision Making Differential Diagnosis Concussion, intracranial hemorrhage, infection, temporal arteritis, electrolyte or metabolic abnormality, cardiac disease, arrhythmia Medical Records Attestation: I reviewed the patient's medical records. Home Medications Current Medication List: was personally reviewed by me Laboratory Data Attestation: I reviewed the patient's lab results. 12/19/22 10:16 12/19/22 10:16 Lab Results 12/19/22 12/19/22 12/19/22 Range/Units 10:16 10:16 10:16 WBC 5.62 (4.8-10.8) K/ul RBC 4.00 L (4.70-6.10) M/uL Hgb 10.8 L (14.0-18.0) g/dl Hct 34.2 L (42.0-52.0) % MCV 85.5 (80.0-100.0) fL MCH 27.0 (25.0-34.0) pg MCHC 31.6 L (32.0-36.0) g/dL RDW Std Deviation 48.4 H (36.4-46.3) fL RDW Coeff of Lianne 15.8 H (11.5-14.5) % Plt Count 132 (130-400) K/uL MPV 10.5 (9.4-12.4) fL Immature Gran % (Auto) 0.9 % Neut % (Auto) 69.7 % Lymph % (Auto) 18.7 % Mcmullen % (Auto) 7.8 % Eos % (Auto) 2.5 % Baso % (Auto) 0.4 % Neut # (Auto) 3.92 (1.40-6.50) K/uL Lymph # (Auto) 1.05 L (1.2-3.4) K/uL Mcmullen # (Auto) 0.44 (0.11-0.59) K/uL Eos # (Auto) 0.14 (0-0.50) K/uL Baso # (Auto) 0.02 (0-0.2) K/uL Immature Gran # (Auto) 0.05 (0.01-0.20) K/uL ESR (0-20) mm/hr PT 28.3 H (9.0-12.0) Seconds INR 2.8 H (0.9-1.1) APTT 37.6 H (21.0-31.0) Seconds PTT Ratio 1.3 Sodium 138 (136-145) mmol/L Potassium 3.5 (3.5-5.1) mmol/L Chloride 106 (98-107) mmol/L Carbon Dioxide 25 (21-32) mmol/L Anion Gap 7 (3-11) BUN 31 H (6-23) mg/dl Creatinine 1.39 (0.6-1.4) mg/dl Est Cr Clr Drug Dosing 55.4 ml/min Est GFR ( Amer) 56.3 ml/min Est GFR (Non-Af Amer) 48.5 ml/min BUN/Creatinine Ratio 22.3 H (10-20) Glucose 153 H (70-99(Fasting)) mg/dl POC Glucose (70-99) mg/dl Calcium 9.0 (8.6-10.3) mg/dl Total Bilirubin 0.6 (0.2-1.0) mg/dl AST 19 (13-39) U/L ALT 10 (7-52) U/L Alkaline Phosphatase 70 (34-104) U/L Troponin I High Sens 7.0 (0-20) pg/ml Total Protein 6.0 (6.0-8.3) gm/dl Albumin 3.7 (3.4-5.0) gm/dl Globulin 2.3 L (2.5-4.0) gm/dl Albumin/Globulin Ratio 1.6 (0.9-2) TSH (0.300-4.500) uIu/ml Urine Color Urine Appearance (Clear) Urine pH (4.5-7.5) Ur Specific [place] (1.000-1.030) Urine Protein (Negative) Urine Glucose (UA) (Negative) Urine Ketones (Negative) Urine Blood (Negative) Urine Nitrite (Negative) Urine Bilirubin (Negative) Urine Urobilinogen (Negative) Ur Leukocyte Esterase (Negative) 12/19/22 12/19/22 12/19/22 Range/Units 10:16 10:16 12:27 WBC (4.8-10.8) K/ul RBC (4.70-6.10) M/uL Hgb (14.0-18.0) g/dl Hct (42.0-52.0) % MCV (80.0-100.0) fL MCH (25.0-34.0) pg MCHC (32.0-36.0) g/dL RDW Std Deviation (36.4-46.3) fL RDW Coeff of Lianne (11.5-14.5) % Plt Count (130-400) K/uL MPV (9.4-12.4) fL Immature Gran % (Auto) % Neut % (Auto) % Lymph % (Auto) % Mcmullen % (Auto) % Eos % (Auto) % Baso % (Auto) % Neut # (Auto) (1.40-6.50) K/uL Lymph # (Auto) (1.2-3.4) K/uL Mcmullen # (Auto) (0.11-0.59) K/uL Eos # (Auto) (0-0.50) K/uL Baso # (Auto) (0-0.2) K/uL Immature Gran # (Auto) (0.01-0.20) K/uL ESR 21 H (0-20) mm/hr PT (9.0-12.0) Seconds INR (0.9-1.1) APTT (21.0-31.0) Seconds PTT Ratio Sodium (136-145) mmol/L Potassium (3.5-5.1) mmol/L Chloride (98-107) mmol/L Carbon Dioxide (21-32) mmol/L Anion Gap (3-11) BUN (6-23) mg/dl Creatinine (0.6-1.4) mg/dl Est Cr Clr Drug Dosing ml/min Est GFR ( Amer) ml/min Est GFR (Non-Af Amer) ml/min BUN/Creatinine Ratio (10-20) Glucose (70-99(Fasting)) mg/dl POC Glucose (70-99) mg/dl Calcium (8.6-10.3) mg/dl Total Bilirubin (0.2-1.0) mg/dl AST (13-39) U/L ALT (7-52) U/L Alkaline Phosphatase (34-104) U/L Troponin I High Sens (0-20) pg/ml Total Protein (6.0-8.3) gm/dl Albumin (3.4-5.0) gm/dl Globulin (2.5-4.0) gm/dl Albumin/Globulin Ratio (0.9-2) TSH 1.198 (0.300-4.500) uIu/ml Urine Color Yellow Urine Appearance Clear (Clear) Urine pH 7.0 (4.5-7.5) Ur Specific [place] 1.009 (1.000-1.030) Urine Protein Negative (Negative) Urine Glucose (UA) Negative (Negative) Urine Ketones Negative (Negative) Urine Blood Negative (Negative) Urine Nitrite Negative (Negative) Urine Bilirubin Negative (Negative) Urine Urobilinogen Negative (Negative) Ur Leukocyte Esterase Negative (Negative) 12/19/22 Range/Units 13:31 WBC (4.8-10.8) K/ul RBC (4.70-6.10) M/uL Hgb (14.0-18.0) g/dl Hct (42.0-52.0) % MCV (80.0-100.0) fL MCH (25.0-34.0) pg MCHC (32.0-36.0) g/dL RDW Std Deviation (36.4-46.3) fL RDW Coeff of Lianne (11.5-14.5) % Plt Count (130-400) K/uL MPV (9.4-12.4) fL Immature Gran % (Auto) % Neut % (Auto) % Lymph % (Auto) % Mcmullen % (Auto) % Eos % (Auto) % Baso % (Auto) % Neut # (Auto) (1.40-6.50) K/uL Lymph # (Auto) (1.2-3.4) K/uL Mcmullen # (Auto) (0.11-0.59) K/uL Eos # (Auto) (0-0.50) K/uL Baso # (Auto) (0-0.2) K/uL Immature Gran # (Auto) (0.01-0.20) K/uL ESR (0-20) mm/hr PT (9.0-12.0) Seconds INR (0.9-1.1) APTT (21.0-31.0) Seconds PTT Ratio Sodium (136-145) mmol/L Potassium (3.5-5.1) mmol/L Chloride (98-107) mmol/L Carbon Dioxide (21-32) mmol/L Anion Gap (3-11) BUN (6-23) mg/dl Creatinine (0.6-1.4) mg/dl Est Cr Clr Drug Dosing ml/min Est GFR ( Amer) ml/min Est GFR (Non-Af Amer) ml/min BUN/Creatinine Ratio (10-20) Glucose (70-99(Fasting)) mg/dl POC Glucose 169 H (70-99) mg/dl Calcium (8.6-10.3) mg/dl Total Bilirubin (0.2-1.0) mg/dl AST (13-39) U/L ALT (7-52) U/L Alkaline Phosphatase (34-104) U/L Troponin I High Sens (0-20) pg/ml Total Protein (6.0-8.3) gm/dl Albumin (3.4-5.0) gm/dl Globulin (2.5-4.0) gm/dl Albumin/Globulin Ratio (0.9-2) TSH (0.300-4.500) uIu/ml Urine Color Urine Appearance (Clear) Urine pH (4.5-7.5) Ur Specific [place] (1.000-1.030) Urine Protein (Negative) Urine Glucose (UA) (Negative) Urine Ketones (Negative) Urine Blood (Negative) Urine Nitrite (Negative) Urine Bilirubin (Negative) Urine Urobilinogen (Negative) Ur Leukocyte Esterase (Negative) Imaging Data Attestation: I personally reviewed and interpreted this imaging study as follows: My Impression: Head CT-no hemorrhage or mass effect seen Chest x-rayno acute infiltrate, failure, pneumothorax seen. Radiologist's Impression: Chest X-Ray 12/19/22 10:30 XR chest 1V portable CLINICAL HISTORY: weakness TECHNIQUE: Single frontal radiograph of the chest was obtained. Comparison: Comparison is made to chest radiograph 11/29/2022 FINDINGS: Stable median sternotomy wires. Cardiomegaly is noted. The aortic arch is calcified. Atelectasis and postsurgical changes are seen in the left lung base. No evidence of pleural effusion or pneumothorax. IMPRESSION: No acute chest disease. ACT 112: Negative or not required by law. Electronically signed by: Russell Sifuentes M.D. 12/19/2022 11:[address] 12/19/22 10:30 CT head/brain wo con CLINICAL HISTORY: 77 years-old Male with left sided headache. The left-sided headache TECHNIQUE: Multiple axial CT images of the head were obtained without contrast. A dose lowering technique was utilized adhering to the principles of ALARA. CT DOSE: 625.80 mGy.cm COMPARISON: 12/12/2022 FINDINGS: No acute intracranial hemorrhage, midline shift, intracranial mass, hydrocephalus, territorial ischemia or abnormal extra-axial collection. Involutional changes with chronic microvascular ischemic disease. Cerebrova scular calcifications. The calvarium is intact. Mild/moderate mucosal thickening of the paranasal sinuses. Left greater than right mastoid and middle ear effusions. Prior bi lateral lens repair. IMPRESSION: No acute intracranial abnormality. ACT 112: Negative or not required by law. The above report was generated using voice recognition software. It may contain grammatical, syntax or spelling errors. Electronically signed by: Delvis Orozco M.D. 12/19/2022 11:37 AM ECG Data Attestation: I personally reviewed and interpreted this ECG as follows: Indication: + weakness Rate (beats per minute): 85 Rhythm: + normal sinus ECG Intervals/blocks: + Normal QRS, + Prolonged QT and + Normal NH ECG [place]: + Normal ECG ST segments: + Normal ST segments ECG Findings: + PACs Comparison ECG Date: from (12/09/2022) Change: the following changes noted (PACs are now present) MDM Narrative This patient comes in as described above. He was placed on a school bus monitor and B2 did come in by ambulance. I saw him and he appears comfortable he has a normal neurologic exam he is an ongoing headache since he hit his head. He had no fall since he left the hospital he has had some nausea. IV access established reviewed his old records including CAT scan and I did repeat the CAT scan here as he is on anticoagulation to rule out any delayed bleed. EKG multiple blood testing was obtained he was reassessed frequently. CAT scan of his head was unremarkable. He tells me he has not been feeling well since he went home he has not been keeping up with his fluids he does feel more short of breath than he was he has a seizure disorder but has not had any seizures that he knows of. Apparently he was altered in the office but he denies that to me he said he just felt very dizzy and off. Certainly is a fall risk being on Coumadin. He does not feel he can go home. His O2 sat at 1 point was 70% but that when he is asleep while he is awake it is in the 90s. He feels that he is getting a little more short of breath since he stopped the antibiotics although his chest x-ray is clear. I do not think it is likely a PE however he does have a anaphylaxis to IV contrast which would make that work-up somewhat difficult. EKG is nonischemic appearing and his troponin is negative I have consulted the [facility] hospitalist to see him in the ER for these measures Continuous cardiac monitoring: Orders placed in EMR for continuous cardiac monitoring: Upon my evaluation he was noted to be in normal sinus rhythm with a rate of 85 Impression & Plan Weakness, Headache, Nausea, Dizziness Discharge Plan Visit Data Chief Complaint: Headache ED Provider: Britton Mccain Discharge Problem: Weakness, Headache, Nausea, Dizziness Forms Stand Alone Forms: [facility] Prescriptions Prescriptions: No Action Trelegy Ellipta 100-62.5-25 mcg blister with device 1 inh inhalation QAM Qty: 60 5RF levetiracetam [Keppra] 500 mg tablet 1,000 mg PO BID Qty: 360 3RF carbidopa-levodopa [Sinemet] 25-100 mg tablet 1 tab PO TID Qty: 270 2RF cholecalciferol (vitamin D3) [Vitamin D3] 50 mcg (2,000 unit) capsule 4,000 unit PO HS atorvastatin 40 mg tablet 40 mg PO HS fexofenadine [Karlee Allergy] 180 mg Tablet 180 mg PO QAM acetaminophen 325 mg Tablet 650 mg PO Q4H PRN (Reason: pain) Qty: 30 0RF Rx Instructions: OTC albuterol sulfate [Ventolin HFA] 90 mcg/actuation HFA aerosol inhaler 2 puff INHALATION Q4H PRN (Reason: Shortness Of Breath Or Wheezing) diclofenac sodium [Voltaren Arthritis Pain] 1 % Gel 2 g TOPICAL TID PRN (Reason: Pain) Rx Instructions: left knee ferrous sulfate 325 mg (65 mg iron) Tablet,Delayed Release (Dr/Ec) 325 mg PO QAM Qty: 30 0RF prednisone 5 mg Tablet 5 mg PO QAM gabapentin 300 mg capsule 600 mg PO QAM Rx Instructions: 600mg in am/300mg in pm pantoprazole [Protonix] 20 mg Tablet,Delayed Release (Dr/Ec) 20 mg PO QAM potassium chloride 20 mEq Tablet Extended Release 20 meq PO HS cyanocobalamin (vitamin B-12) [Vitamin B-12] 1,000 mcg Tablet Extended Release 1,000 mcg PO QAM magnesium 250 mg Tablet 250 mg PO QAM ondansetron 4 mg tablet,disintegrating 4 mg PO Q6H PRN (Reason: nausea and vomiting) Qty: 30 0RF Trulicity 1.5 mg/0.5 mL pen injector 1.5 mg SUBCUT WE Rx Instructions: Take sun tramadol 50 mg tablet 50 mg PO Q6H PRN (Reason: pain, moderate) Qty: 15 0RF warfarin 5 mg tablet 5 - 7.5 mg PO DIRECTED Qty: 30 0RF Rx Instructions: Take according to anticoagulation clinic. 5mg on Sunday/. 7.5mg on Sunday, Sunday, Sunday, Sunday, Sunday. allopurinol 100 mg tablet 100 mg PO HS insulin glargine [Lantus Solostar U-100 Insulin] 100 unit/mL (3 mL) insulin pen 20 unit SUBCUT BID polyethylene glycol 3350 [Miralax] 17 gram/dose powder 17 g PO BID furosemide 20 mg tablet 20 mg PO QAM sennosides [Senokot] 8.6 mg tablet 8.6 mg PO QAM insulin aspart U-100 [Novolog FlexPen U-100 Insulin] 100 unit/mL (3 mL) insulin pen 1 sliding scale dose subcut ACHS Rx Instructions: supplemental scale for meal-time coverage and bed-time coverage. calcium polycarbophil [Fiber (calcium polycarbophil)] 625 mg Tablet 625 mg PO QAM Qty: 30 0RF Rx Instructions: OTC gabapentin 300 mg capsule 300 mg PO HS topiramate 100 mg tablet 100 mg PO BID Saline Mist 0.65 % aerosol,spray 2 spray intranasal QID PRN (Reason: DRYNESS) lactulose 20 gram/30 mL solution 20 g PO PM PRN (Reason: Constipation) Referrals Referrals: Tan Hammond DO [Primary Care Provider] -
[2022-12-19 10:49] LABS: Basophils # (auto) 0.02 K/uL (0-0.2); Basophils % (auto) 0.4 %; Eosinophils # (auto) 0.14 K/uL (0-0.50); Eosinophils % (auto) 2.5 %; Hematocrit (blood only) 34.2 % (42.0-52.0); Hemoglobin 10.8 g/dl (14.0-18.0); Immature Granulocytes # (auto) 0.05 K/uL (0.01-0.20); Immature Granulocytes % (auto) 0.9 %; Lymphocytes # (auto) 1.05 K/uL (1.2-3.4); Lymphocytes % (auto) 18.7 %; Mean Corpuscular Hgb Conc 31.6 g/dL (32.0-36.0); Mean Corpuscular Volume 85.5 fL (80.0-100.0); Mean Platelet Volume 10.5 fL (9.4-12.4); Monocytes # (auto) 0.44 K/uL (0.11-0.59); Monocytes % (auto) 7.8 %; Neutrophils # (auto) 3.92 K/uL (1.40-6.50); Neutrophils % (auto) 69.7 %; Platelet Count 132 K/uL (130-400); RDW Coefficient of Variation 15.8 % (11.5-14.5); RDW Standard Deviation 48.4 fL (36.4-46.3); White Blood Count 5.62 K/ul (4.8-10.8)
[2022-12-19 10:56] LABS: Albumin Globulin Ratio 1.6 (0.9-2); Albumin Level 3.7 gm/dl (3.4-5.0); BUN Creatinine Ratio 22.3 (10-20); Bilirubin,Total 0.6 mg/dl (0.2-1.0); Creatinine Clr Calc Pharmacy 55.4 ml/min; Est GFR (African American) 56.3 ml/min; Est GFR (Non-African American) 48.5 ml/min; Globulin 2.3 gm/dl (2.5-4.0); Potassium 3.5 mmol/L (3.5-5.1)
[2022-12-19 10:58] LABS: INR 2.8 (0.9-1.1); Partial Thromboplastin Ratio 1.3; Partial Thromboplastin Time 37.6 Seconds (21.0-31.0); Prothrombin Time 28.3 Seconds (9.0-12.0)
--- NOTE | 2022-12-19 11:35 | XRay Report ---
XR chest 1V portable CLINICAL HISTORY: weakness TECHNIQUE: Single frontal radiograph of the chest was obtained. Comparison: Comparison is made to chest radiograph 11/29/2022 FINDINGS: Stable median sternotomy wires. Cardiomegaly is noted. The aortic arch is calcified. Atelectasis and postsurgical changes are seen in the left lung base. No evidence of pleural effusion or pneumothorax. IMPRESSION: No acute chest disease. ACT 112: Negative or not required by law. Electronically signed by: Russell Sifuentes M.D. 12/19/2022 11:33 AM
--- NOTE | 2022-12-19 11:39 | CT Scan Report ---
CT head/brain wo con CLINICAL HISTORY: 77 years-old Male with left sided headache. The left-sided headache TECHNIQUE: Multiple axial CT images of the head were obtained without contrast. A dose lowering tech nique was utilized adhering to the principles of ALARA. CT DOSE: 625.80 mGy.cm COMPARISON: 12/12/2022 FINDINGS: No acute intracranial hemorrhage, midline shift, intracranial mass, hydrocephalus, territorial ischem ia or abnormal extra-axial collection. Involutional changes with chronic microvascular ischemic disea se. Cerebrovascular calcifications. The calvarium is intact. Mild/moderate mucosal thickening of the paranasal sinuses. Left greater shashi n right mastoid and middle ear effusions. Prior bilateral lens repair. IMPRESSION: No acute intracranial abnormality. ACT 112: Negative or not required by law. The above report was generated using voice recognition software. It may contain grammatical, syntax o r spelling errors. Electronically signed by: Delvis Orozco M.D. 12/19/2022 11:37 AM
[2022-12-19] MEDS ORDERED: SODIUM CHLORIDE 0.9% 1000ML 250 ML IV ONE (11:41)
[2022-12-19] MEDS ORDERED: ONDANSETRON INJ 2 MG/ML 2 ML VIAL IV STA (11:41)
--- NOTE | 2022-12-19 12:17 | History & Physical Report ---
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 -It appears that he only gets seizures when he is in the hospital and anxious/stressed, patient was anxious during the exam and had some upper extremity tremors, however, he was completely alert and these resolved after changing the topic to our discussion. High likelihood these are non- epileptiformseizures -Will obtain STAT prolactin for further evaluation -Home Warfarin for DVT PPX -NPO until he is alert and safe to have bedside swallow evaluation -AM CBC, BMP, Mag, PT/INR (2) Headache: Plan: -Patient has been having the left-sided, frontal region -Has been ongoing since last admission after his fall -Has had [address] wo con, last one was this am prior to admission -Could be due to a concussion sustained from his previous fall -Will obtain the MRI of the brain w/wo con for further assessment -Will give 1gm IV tylenol now, then continue with scheduled Tylenol moving forward (3) Generalized weakness: Plan: -Patient is chronically ill and was recommended for rehab on last admission but was discharged home as he was only interested in going to the [facility] but there were no open beds -After further discussions, the patient would be interested in rehab placement on discharge to improve his strength -No signs of infection or metabolic derangement to explain his symptoms -CT of the head was negative -Will obtain random cortisol as he is on chronic prednisone therapy -Continue to follow workup for seizures with MRI -PT/OT consults placed (4) Depression: Plan: -Patient was started on TID Buspar on last admission, now not taking -Anxiety and depression could be related to his seizure-like activity. -Would recommend further discussions regarding restarting an antidepressant (5) Anemia: Plan: -Stable -Continue ferrous sulfate (6) Mechanical heart valve present: Plan: -Continue Warfarin with goal INR of 2.5-3.5 -INR is 2.8 today (7) Anxiety: Plan: -See depression (8) CAD (coronary artery disease): Plan: -Continue statin (9) Diabetes: Plan: -Monitor BSG q6h until able to safely eat, goal is 110-160 -Hold Trulicity -Will continue his home 20 units lantus BID -CF 50 q6h until able to eat -Adjust regimen as needed (10) Interstitial lung disease due to connective tissue disease: Plan: -Stable on RA at the time of my exam -CXR today is clear with clear lung sounds -Continue home breathing treatments -Incentive spirometry, flutter therapy -2L O2 NC HS (11) Parkinsonism: Plan: -Continue Carbidopa-Levodopa (12) Polymyositis: Plan: -Continue daily prednisone -Back on his baseline 5mg daily Plan The patient was seen with and discussed with Dr. Goldsmith at the time of the admission History of Present Illness Chief Complaint: Tachycardia, AMS Primary Care Provider: Tan Hammond DO Xavi is a 77-year-old male with a past medical history of seizure-like activity, parkinsonism, CKD 3, mechanical heart valve on Coumadin (Goal INR 2.53.5), DM2, RA/polymyositis on daily prednisone, CAD, interstitial lung disease, and anxiety who presented to the [facility] ED via EMS on 12/19 from his PCP's office due to tachycardia and AMS. EMS reports that the patient was not tachycardic, no altered on their arrival. The patient was reportedly hypoxic at 78% on RA on ED arrival but otherwise stable. Labs were significant for a BUN of 31, glucose of 153, and high sen trop WNL. Chest xray was read as "No acute chest disease.". CT of the head wo con was read as "No acute intracranial abnormality.". The patient noted generalized weakness, headache, and nausea on arrival per ED staff. Prior to admission the patient was given 250 mL NSS and 4 mg IV zofran. The patient was last admitted to [facility] from 12/09-12/13 after sustaining a fall at home and reported seizure-like activity in the ED after arrival. He had multiple episodes of seizure-like activity during his admission, it was uncertain if this activity was truly due to seizures or non-epileptiform events due to severe anxiety. His seizures broke after doses of ativan and he was continued on his antiepileptic medications on discharge. The etiology of his fall was unknown as he has multiple risk factors including seizure-like activity, OA with baseline ambulatory dysfunction, multiple chronic comorbidities, and possible arrhythmia. The patient was started on TID Buspar for anxiety. He was thought to be experiencing an exacerbation of his ILD and his baseline steroid dose was increased to a steroid burst w/taper, he was also started on a 7 day course of Augmentin. He was evaluated by PT/OT who recommended rehab on DC, he preferred to be discharged to the [facility], but there were no available beds at the time of discharge. At the time of the exam the patient was lying in bed in no acute distress, he was alert and oriented at the beginning of the exam. He states that since his discharge home on 12/13 he has had the ongoing left sided headache, generalized weakness, poor oral intake, and nausea. He states that he completed his course of Augmentin and Prednisone taper. When asked, he states that he is not taking the Buspar ordered on last discharge for anxiety, he states "I just don't like taking those type of medications". He states that he drove to the [facility] this am for Holter Monitor placement. While in the waiting room he tells me that other patients called a nurse to evaluate him as he was altered. He tells me he remembers the entire event. He did note that he was fatigued and less alert then normal, he thinks that he might have been starting to have a seizure. The nurse called EMS as they did not think he was safe to drive home. He confirms that he took all his am medications, including his kep pra and topiramate. Shortly after leaving the room the patient's nurse alerted us that the patient was having seizure -like activity. On re-examination the patient was unresponsive with active, full body tremors. He was given 1gm IV Ativan which broke the seizure-like activity, the patient was postictal after the event but stable. Please refer to Dr. Goldsmith's attestation for any changes to the treatment plan Allergies Allergy/AdvReac Type Severity Reaction Status Date / Time bee venom protein (honey bee) Allergy Severe anaphylaxis Verified 12/09/22 17:08 Iodinated Contrast Media Allergy Severe Anaphylaxis Verified 12/09/22 17:08 shellfish derived Allergy Severe Anaphylaxis Verified 12/09/22 17:08 doxazosin Allergy Intermediate Rash Verified 12/09/22 17:08 tamsulosin [From Flomax] Allergy Intermediate Itching Verified 12/09/22 17:08 Tetanus Vaccines and Toxoid Allergy Unknown Unknown Verified 12/09/22 17:08 lamotrigine AdvReac Intermediate Confusion Verified 12/09/22 17:08 oxycodone [From Percocet] AdvReac Intermediate nausea/vomi Verified 12/09/22 17:08 ting propoxyphene [From Darvon] AdvReac Intermediate nausea/vomi Verified 12/09/22 17:08 ting Home Medications Medication Instructions Recorded Confirmed Type atorvastatin 40 mg tablet 40 mg PO HS 05/28/20 12/19/22 History fexofenadine 180 mg tablet 180 mg PO QAM 02/11/21 12/19/22 History (Karlee Allergy) allopurinol 100 mg tablet 100 mg PO HS 04/10/21 12/19/22 History cholecalciferol (vitamin D3) 50 4,000 unit PO HS 07/14/21 12/19/22 History mcg (2,000 unit) capsule (Vitamin D3) insulin glargine 100 unit/mL (3 20 unit subcut BID 07/26/21 12/19/22 History mL) subcutaneous pen (Lantus Solostar U-100 Insulin) acetaminophen 325 mg tablet 650 mg PO Q4H PRN pain #30 tabs 08/04/21 12/19/22 Rx fluticasone fur. 100 mcg-umeclid 1 inh inhalation QAM #60 ea 09/06/21 12/19/22 Rx 62.5 mcg-vilant 25 mcg inhalat.powder (Trelegy Ellipta) albuterol sulfate 90 mcg/actuation 2 puff inhalation Q4H PRN 09/27/21 12/19/22 History aerosol inhaler (Ventolin HFA) Shortness Of Breath Or Wheezing polyethylene glycol 3350 17 17 g PO BID 10/04/21 12/19/22 History gram/dose oral powder (Miralax) furosemide 20 mg tablet 20 mg PO QAM 11/24/21 12/19/22 History sennosides 8.6 mg tablet (Senokot) 8.6 mg PO QAM 11/24/21 12/19/22 History insulin aspart U-100 100 unit/mL 1 sliding scale dose subcut ACHS 02/26/22 12/19/22 History (3 mL) subcutaneous pen (Novolog FlexPen U-100 Insulin aspart) diclofenac sodium 1 % topical gel 2 g topical TID PRN Pain 05/21/22 12/19/22 History (Voltaren Arthritis Pain) ferrous sulfate 325 mg (65 mg 325 mg PO QAM #30 tabs 05/26/22 12/19/22 Rx iron) tablet,delayed release levetiracetam 500 mg tablet 1,000 mg PO BID #360 tabs 08/03/22 12/19/22 Rx (Keppra) cyanocobalamin (vitamin B-12) 1,000 mcg PO QAM 08/14/22 12/19/22 History 1,000 mcg tablet,extended release (Vitamin B-12 ER) gabapentin 300 mg capsule 600 mg PO QAM 08/14/22 12/19/22 History magnesium 250 mg tablet 250 mg PO QAM 08/14/22 12/19/22 History pantoprazole 20 mg tablet,delayed 20 mg PO QAM 08/14/22 12/19/22 History release (Protonix) potassium chloride 20 mEq 20 meq PO HS 08/14/22 12/19/22 History tablet,extended release prednisone 5 mg tablet 5 mg PO QAM 08/14/22 12/19/22 History ondansetron 4 mg disintegrating 4 mg PO Q6H PRN nausea and 08/24/22 12/19/22 Rx tablet vomiting #30 tabs calcium polycarbophil 625 mg 625 mg PO QAM #30 tabs 09/14/22 12/19/22 Rx tablet (Fiber (calcium polycarbophil)) gabapentin 300 mg capsule 300 mg PO HS 09/30/22 12/19/22 History lactulose 20 gram/30 mL oral 20 g PO PM PRN Constipation 09/30/22 12/19/22 History solution sodium chloride 0.65 % nasal spray 2 spray intranasal QID PRN DRYNESS 09/30/22 12/19/22 History aerosol (Saline Mist) topiramate 100 mg tablet 100 mg PO BID 09/30/22 12/19/22 History carbidopa 25 mg-levodopa 100 mg 1 tab PO TID #270 tabs 11/16/22 12/19/22 Rx tablet (Sinemet) dulaglutide 1.5 mg/0.5 mL 1.5 mg subcut WE 12/09/22 12/19/22 History subcutaneous pen injector (Trulicity) tramadol 50 mg tablet 50 mg PO Q6H PRN pain, moderate 12/13/22 12/19/22 Rx #15 tabs warfarin 5 mg tablet 5 - 7.5 mg PO DIRECTED #30 tabs 12/13/22 12/19/22 Rx Past Med/Surg History Medical History SHYANN (acute kidney injury) Anemia history of blood transfusion, 2020 Anxiety Aortic ectasia, thoracic Aspiration pneumonia hx of--per pt was due to pain medications Asthma inhaler daily and prn CAD (coronary artery disease) follows with Dr. Chau Chronic dyspnea Chronic kidney disease, stage 3a Chronic pulmonary aspiration Chronic respiratory failure with hypoxia Chronic use of steroids Coagulopathy Constipated Current use of fdc anticoagulation warfarin daily Depression Diabetes IDDM Diabetic peripheral neuropathy Dysphagia Edema Fall Generalized weakness GI bleed Gout Headache Hearing deficit Heart failure > 70% History of seizures last 2019--on Keppra/Topiramate--follows with Dr. 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 inhaler daily and prn and uses 2L N/C at hs Kidney stones Migraine Neurogenic claudication due to lumbar spinal stenosis On home oxygen therapy 2L at hs Osteoarthritis of left knee Pancytopenia Parkinsonism per pt has a difficulty swallowing, states certain foods can be difficult to eat Pneumonia hx of, per pt last admission @ [facility] was 05/2022 Polymyositis Prostate cancer radiation Pyelonephritis Rheumatoid arthritis Seizure disorder Seizure-like activity Shortness of breath per pt on with exertion Somatic dysfunction of cervical region Stroke-like symptom 12/2019, w/ blurry vision and dysarthria. mild R sided wkness. attending outpatient physical therapy w/ good improvement in strength (5+/5 strength of all 4 extremities as of 05/28/20) Supratherapeutic INR Thoracic ascending aortic aneurysm s/p repair TIA (transient ischemic attack) 2019--no deficits--follows with Dr. Sheikh Urinary tract infection Surgical History H/O hernia repair History of aortic valve replacement 2004 @ [facility] in [place], [place] History of appendectomy History of bilateral cataract extraction History of cardiac cath x3--2018 @ [facility] with 1 stent placed/2019 @ [facility]/last 04/2021 @ [facility] History of cholecystectomy History of colonoscopy History of esophagogastroduodenoscopy (EGD) History of fusion of cervical spine normal ROM History of gastric bypass 2007--lap band History of heart artery stent x1--2018 @ [facility] History of lumbar spinal fusion History of lung biopsy 2019 History of partial nephrectomy 1986 on right kidney History of prostate biopsy malignant History of tonsillectomy History of tooth extraction all upper teeth removed Mechanical heart valve present Family History Mother , age 87 of pulmonary issues Rheumatoid arthritis Father , in his mid 80s of a stroke Stroke Other Coronary heart disease No family history of adverse response to anesthesia Social History Smoking Status: Never smoker Second Hand Exposure: No; Do You Dip or Chew Tobacco: No; Tobacco Cessation Education Requested by Patient: No Hx Alcohol Use: No Hx Substance Use: No Preferred Language: Urdu Communication Ability: Effective Hearing Ability: Hard of Hearing Senior Software Engineer Required: No Beliefs That Will Affect Care: None marital status: / Current Living Situation: Personal Care Facility Current Living Situation Comment: [place] [facility] current occupational status: retired 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 How many Children do You have: 2 How many Children do You have Comment: son Other Information That Helps Us Care for You: Yes Feels Safe at Home: Yes Safety Concerns: Feels Safe At This Time Assistive Devices: Oxygen - at Night, Oxygen - Continuous and Walker Physical Exam Physical Exam: Physical Exam: General: In no acute distress, stated age, chronically ill appearing but non- toxic HEENT: Normocephalic, atraumatic, no scleral icterus, pupils around round, symmetrical, and reactive to light, moist mucus membranes, trachea midline, no thyromegaly Chest/Pulm: No respiratory distress, symmetrical chest expansion, clear breath sounds throughout Cardiac: RRR, no murmurs noted Abdomen: Negative for ascites and bruising, normoactive bowel sounds, soft, non-tender to palpation throughout Musculoskeletal: Symmetrical and without signs of acute trauma, upper and lower extremities with full ROM, no atrophy, spasticity, or flaccidity Extremities: Radial, dorsalis pedis, and posterior tibial pulses are intact and symmetrical, no edema noted in the BL LE's Skin: Warm, dry, no rashes , lesions, or scars noted Neuro: Alert and oriented to person, place, month, year, and president, no focal defects, CN II-XII tested and intact,no tremors noted Psych: No acute distress, anxious and tearful at times during the exam but polite and cooperative Results & Data Results & Data Vital Signs (Past 12 Hours) Vital Signs Temp Pulse Pulse Resp BP BP Pulse Ox 12/19/22 11:58 12/19/22 11:20 78 L 12/19/22 11:00 71 18 108/60 97 12/19/22 10:30 70 20 104/61 99 12/19/22 10:21 76 19 112/41 L 96 12/19/22 10:30 71 15 100 12/19/22 10:34 71 12/19/22 10:13 36.8 C 71 15 112/41 L 100 O2 Del Method O2 Flow Rate 12/19/22 11:58 Nasal Cannula 3 12/19/22 11:20 Nasal Cannula 0 12/19/22 11:00 Nasal Cannula 3 12/19/22 10:30 12/19/22 10:21 12/19/22 10:30 Room Air 12/19/22 10:34 12/19/22 10:13 Room Air Laboratory Results Abnormal lab results 12/19/22 12/19/22 12/19/22 Range/Units 10:16 10:16 10:16 RBC 4.00 L (4.70-6.10) M/uL Hgb 10.8 L (14.0-18.0) g/dl Hct 34.2 L (42.0-52.0) % MCHC 31.6 L (32.0-36.0) g/dL RDW Std Deviation 48.4 H (36.4-46.3) fL RDW Coeff of Lianne 15.8 H (11.5-14.5) % Lymph # (Auto) 1.05 L (1.2-3.4) K/uL ESR (0-20) mm/hr PT 28.3 H (9.0-12.0) Seconds INR 2.8 H (0.9-1.1) APTT 37.6 H (21.0-31.0) Seconds BUN 31 H (6-23) mg/dl BUN/Creatinine Ratio 22.3 H (10-20) Glucose 153 H (70-99(Fasting)) mg/dl Globulin 2.3 L (2.5-4.0) gm/dl 12/19/22 Range/Units 10:16 RBC (4.70-6.10) M/uL Hgb (14.0-18.0) g/dl Hct (42.0-52.0) % MCHC (32.0-36.0) g/dL RDW Std Deviation (36.4-46.3) fL RDW Coeff of Lianne (11.5-14.5) % Lymph # (Auto) (1.2-3.4) K/uL ESR 21 H (0-20) mm/hr PT (9.0-12.0) Seconds INR (0.9-1.1) APTT (21.0-31.0) Seconds BUN (6-23) mg/dl BUN/Creatinine Ratio (10-20) Glucose (70-99(Fasting)) mg/dl Globulin (2.5-4.0) gm/dl Diagnostic Findings Chest X-Ray 12/19/22 10:30 XR chest 1V portable CLINICAL HISTORY: weakness TECHNIQUE: Single frontal radiograph of the chest was obtained. Comparison: Comparison is made to chest radiograph 11/29/2022 FINDINGS: Stable median sternotomy wires. Cardiomegaly is noted. The aortic arch is calcified. Atelectasis and postsurgical changes are seen in the left lung base. No evidence of pleural effusion or pneumothorax. IMPRESSION: No acute chest disease. ACT 112: Negative or not required by law. Electronically signed by: Russell Sifuentes M.D. 12/19/2022 11:[address] 12/19/22 10:30 CT head/brain wo con CLINICAL HISTORY: 77 years-old Male with left sided headache. The left-sided headache TECHNIQUE: Multiple axial CT images of the head were obtained without contrast. A dose lowering technique was utilized adhering to the principles of ALARA. CT DOSE: 625.80 mGy.cm COMPARISON: 12/12/2022 FINDINGS: No acute intracranial hemorrhage, midline shift, intracranial mass, hydrocephalus, territorial ischemia or abnormal extra-axial collection. Involutional changes with chronic microvascular ischemic disease. Cerebrovascular calcifications. The calvarium is intact. Mild/moderate mucosal thickening of the paranasal sinuses. Left greater than right mastoid and middle ear effusions. Prior bilateral lens repair. IMPRESSION: No acute intracranial abnormality. ACT 112: Negative or not required by law. The above report was generated using voice recognition software. It may contain grammatical, syntax or spelling errors. Electronically signed by: Delvis Orozco M.D. 12/19/2022 11:37 AM ECG Additional Comments: Sinus rhythm with Premature atrial complexes Prolonged QT Abnormal ECG When compared with ECG of 09-DEC-2022 14:02, Premature atrial complexes are now Present Code Status & VTE Plan Code Status Full code VTE Prophylaxis Plan VTE Prophylaxis will be ordered: Yes Supervising Physician Co-Signing Physician Notes I personally saw and examined the patient. I verified all peña points and agree with Robb Palafox PA-C with the following exceptions and/or additions: 77 year old male presents to the ER with elevated heart rate and altered mental status. Patient having seizure-like activity in the ER when seen. 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 Give lorazepam 1mg IV now with Keppra 1g IV with terminated seizure like activity and patient now following one step commands but very drosy and unable to provide history. HS RRR, no murmurs, Chest CTAB, PERRL, Abdo SNT. A/P seizure like acitivity - Brain MRI seizure protocol. Consult neurology. Unclear cause of tachycardia and altered mental status earlier today but workup generally unremarkable - ?due to recent concussion. Will pursue once he is back to his normal self. PG Care Time/CCT Total # of Minutes Spent Total Time Spent with Patient: Total time spent is greater than 50% in coordination of care (as documented) at patient's floor/unit and/or counseling patient: C[place] [address] INT INP/OBS CARE MIN Patient Type Established Medical Decision Making High Complexity Diagnoses Observed seizure-like activity R56.9 Headache R51.9; G89.29 Headache chronicity pattern: chronic headache Headache type: unspecified Intractability: not intractable Generalized weakness R53.1 Depression F32.A Anemia D64.9 Anemia type: unspecified type Mechanical heart valve present Z95.2 Anxiety F41.9 CAD (coronary artery disease) I25.10 Associated angina: without angina Coronary Disease-Associated Artery/Lesion type: [place] artery [place] vs. transplanted heart: blackfeet heart Diabetes E11.42; Z79.4 Diabetes mellitus complication detail: with polyneuropathy Diabetes mellitus complication status: with neurologic complications Diabetes mellitus fdc insulin use: with long distance operator use Diabetes mellitus type: type 2 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; M35.9 Parkinsonism G20 Polymyositis M33.20 (2) Headache Headache chronicity pattern: chronic headache Headache type: unspecified Intractability: not intractable Qualified Code(s): R51.9 - Headache, unspecified; G89.29 - Other chronic pain (5) Anemia Anemia type: unspecified type Qualified Code(s): D64.9 - Anemia, unspecified (8) CAD (coronary artery disease) Associated angina: without angina Coronary Disease-Associated Artery/Lesion type: [place] artery [place] vs. transplanted heart: blackfeet heart Qualified Code(s): I25.10 - Atherosclerotic heart disease of black[place] coronary artery without angina pectoris (9) Diabetes Diabetes mellitus complication detail: with polyneuropathy Diabetes mellitus complication status: with neurologic complications Diabetes mellitus fdc insulin use: with long distance operator use Diabetes mellitus type: type 2 Qualified Code(s): E11.42 - Type 2 diabetes mellitus with diabetic polyneuropathy; Z79.4 - rat exterminator (current) use of insulin
[2022-12-19 12:38] LABS: Appearance Urine Clear (Clear); Bilirubin Urine Negative (Negative); Blood Urine Negative (Negative); Color Urine Yellow; Glucose Urine UA Negative (Negative); Ketones Urine Negative (Negative); Leukocyte Esterase Urine Negative (Negative); Nitrite Urine Negative (Negative); Protein Urine Negative (Negative); Specific Gravity Urine 1.009 (1.000-1.030); Urobilinogen Urine Negative (Negative)
[2022-12-19] MEDS ORDERED: LORazepam 2 MG/1 ML VIAL IV STA (13:02)
[2022-12-19] MEDS ORDERED: LORazepam 2 MG/1 ML VIAL ONE (13:03)
[2022-12-19] MEDS ORDERED: levETIRAcetam 1,000 MG in 0.9 % SODIUM CHLORIDE 100 ML IV STA (13:06)
[2022-12-19] MEDS ORDERED: GLUCOSE 10 TAB/TUBE PO PRN (13:15)
[2022-12-19] MEDS ORDERED: CARBOHYDRATES FOR HYPOGLYCEMIA PO PRN (13:15)
[2022-12-19] MEDS ORDERED: DEXTROSE 50% 50 ML SYRINGE IV PRN (13:15)
[2022-12-19] MEDS ORDERED: GLUCAGON FOR INJ 1 MG VIAL SQ PRN (13:15)
[2022-12-19] MEDS ORDERED: GLUCOSE 40% GEL 15 GM TUBE PO PRN (13:15)
[2022-12-19] MEDS ORDERED: ACETAMINOPHEN 1,000 MG/100 ML VIAL IV STA ×2 (13:42→22:30)
[2022-12-19 13:58] LABS: Magnesium 2.1 mg/dl (1.7-2.4)
[2022-12-19 14:29] LABS: Cortisol Random 5.6 mcg/dl
[2022-12-19] MEDS: INSULIN ASPART PER UNIT CHARGE SC SCH ×2 (14:33→17:47)
[2022-12-19 14:38] LABS: Prolactin 8.37 ng/ml
[2022-12-19] MEDS ORDERED: ALBUTEROL HFA 8 GM INHALER INH PRN (15:16)
[2022-12-19] MEDS ORDERED: LACTULOSE SYRUP 20 GM/30 ML UDC PO PRN (15:26)
[2022-12-19] MEDS: CARBIDOPA/LEVODOPA 25/100MG TAB PO SCH ×2 (16:14→20:53)
[2022-12-19] MEDS: WARFARIN SOD 5 MG TAB PO SCH (16:14)
--- NOTE | 2022-12-19 17:58 | Electrocardiogram Report ---
Test Reason : Blood Pressure : / mmHG Vent. Rate : 085 BPM Atrial Rate : 085 BPM P-R Int : 124 ms QRS Dur : 084 ms QT Int : 400 ms P-R-T Axes : 004 001 079 degrees QTc Int : 476 ms Sinus rhythm with Premature atrial complexes Prolonged QT Abnormal ECG When compared with ECG of 09-DEC-2022 14:02, Premature atrial complexes are now Present Confirmed by Shahid Cross ([id number]) on 12/19/2022 5:58:06 PM Referred By: Confirmed By:Shahid Cross
--- NOTE | 2022-12-19 18:16 | Electrocardiogram Report ---
Test Reason : Blood Pressure : / mmHG Vent. Rate : 106 BPM Atrial Rate : 000 BPM P-R Int : 000 ms QRS Dur : 080 ms QT Int : 378 ms P-R-T Axes : 000 003 113 degrees QTc Int : 502 ms Atrial fibrillation with rapid ventricular response Low voltage QRS Nonspecific ST and T wave abnormality Abnormal ECG When compared with ECG of 19-DEC-2022 10:28, (unconfirmed) Atrial fibrillation has replaced Sinus rhythm Confirmed by Shahid Cross ([id number]) on 12/19/2022 6:15:57 PM Referred By: Moses Chau Confirmed By:Shahid Cross
[2022-12-19] MEDS ORDERED: GADOBUTROL 65ML VIAL IV ONE (18:33)
--- NOTE | 2022-12-19 18:49 | Magnetic Resonance Report ---
MR brain seizure wo/w con CLINICAL HISTORY: seizures in the ED after fall TECHNIQUE: Multiplanar and multisequence MR images of the brain were obtained prior to and following administration of gadolinium contrast. Comparison: Comparison is made to CT head 12/19/2022 FINDINGS: No abnormal restricted diffusion is identified. Foci of T2 and FLAIR hyperintensity are noted in the paraventricular areas consistent with chronic small vessel ischemic disease. Ex vacuo ventriculomegal y and sulcal enlargement is noted compatible with diffuse volume loss. Focal encephalomalacia in the right cerebellum.No mass or abnormal enhancement is seen. There is no mass effect or midline shift. T here is no evidence of acute intraparenchymal hemorrhage. No extra axial fluid collections are seen. The corpus callosum, pituitary gland, and cerebellar tonsils appear grossly unremarkable. High-resolu tion images of the temporal lobes do not demonstrate any signal abnormality. Flow voids of the major intracranial arterial vessels are identified. The imaged portions of the para nasal sinuses, mastoid air cells, and orbits are unremarkable. IMPRESSION: No acute abnormality. In particular, no edema in the temporal lobes bilaterally in this postictal pat ient. ACT 112: Negative or not required by law. Electronically signed by: Russell Sifuentes M.D. 12/19/2022 6:48 PM
[2022-12-19] MEDS: GABAPENTIN 300 MG CAP PO SCH (20:54)
[2022-12-19] MEDS: TOPIRAMATE 100 MG TAB PO SCH (20:54)
[2022-12-19] MEDS: levETIRAcetam 500 MG TAB PO SCH (20:54)
[2022-12-19] MEDS: POTASSIUM CHLORIDE CRTAB 20 MEQ TABCR PO SCH (20:54)
[2022-12-19] MEDS: ATORVASTATIN 40 MG TAB PO SCH (20:55)
[2022-12-19] MEDS: allopurinoL 100 MG TAB PO SCH (20:55)
[2022-12-19] MEDS: POLYETHYLENE (MIRALAX) 17 GM PACK PO SCH (20:55)
[2022-12-19] MEDS: LANTUS PER UNIT CHARGE SC SCH (20:59)
[2022-12-20] MEDS: INSULIN ASPART PER UNIT CHARGE SC SCH ×6 (00:15→21:19)
[2022-12-20] MEDS ORDERED: Nursing to Pharmacy Communication SCH (05:45)
[2022-12-20 06:02] LABS: Basophils # (auto) 0.04 K/uL (0-0.2); Basophils % (auto) 0.9 %; Eosinophils # (auto) 0.22 K/uL (0-0.50); Eosinophils % (auto) 5.2 %; Hematocrit (blood only) 32.6 % (42.0-52.0); Hemoglobin 10.3 g/dl (14.0-18.0); Immature Granulocytes # (auto) 0.04 K/uL (0.01-0.20); Immature Granulocytes % (auto) 0.9 %; Lymphocytes # (auto) 1.36 K/uL (1.2-3.4); Mean Corpuscular Hemoglobin 27.2 pg (25.0-34.0); Mean Corpuscular Hgb Conc 31.6 g/dL (32.0-36.0); Mean Corpuscular Volume 86.2 fL (80.0-100.0); Mean Platelet Volume 10.6 fL (9.4-12.4); Monocytes # (auto) 0.33 K/uL (0.11-0.59); Monocytes % (auto) 7.8 %; Neutrophils # (auto) 2.26 K/uL (1.40-6.50); Neutrophils % (auto) 53.2 %; Platelet Count 141 K/uL (130-400); RDW Coefficient of Variation 15.8 % (11.5-14.5); RDW Standard Deviation 49.6 fL (36.4-46.3); Red Blood Count 3.78 M/uL (4.70-6.10); White Blood Count 4.25 K/ul (4.8-10.8)
[2022-12-20 06:14] LABS: INR 2.7 (0.9-1.1); Prothrombin Time 27.8 Seconds (9.0-12.0)
[2022-12-20 06:18] LABS: BUN Creatinine Ratio 19.7 (10-20); Calcium 8.6 mg/dl (8.6-10.3); Creatinine Clr Calc Pharmacy 56.1 ml/min; Est GFR (African American) 57.3 ml/min; Est GFR (Non-African American) 49.4 ml/min; Magnesium 2.3 mg/dl (1.7-2.4); Potassium 3.8 mmol/L (3.5-5.1)
--- NOTE | 2022-12-20 07:33 | Hospitalist Progress Note ---
Date of Service December 20, 2022 Assessment & Plan (1) Observed seizure-like activity: (2) Headache: (3) Generalized weakness: (4) Depression: (5) Anemia: (6) Mechanical heart valve present: (7) Anxiety: (8) CAD (coronary artery disease): (9) Diabetes: (10) Interstitial lung disease due to connective tissue disease: (11) Parkinsonism: (12) Polymyositis: (13) Knee pain: (14) Psychogenic nonepileptic seizure: Plan Psychogenic nonepileptic seizure -Received 1 g of Ativan on admission which broke witnessed seizure. -Currently on Keppra and Topamax outpatient. Given an extra gram of IV Keppra on admission. -CT head and MRI of the brain negative -Seizure precautions ordered -Neurology consulted, states that these episodes represent psychogenic nonepileptic attacks. No further neurological work-up recommended. Continue current AED regimen. -We will consider treating underlying anxiety/depression to control seizures in the future. Headache -Patient has been having the left-sided, frontal region -Has been ongoing since last admission after his fall -Has had [address] wo con, since fall. -Most likely postconcussion symptoms from fall during previous admission. -Given IV Tylenol at time of admission. -Gave 1 dose of hydrocodone/acetaminophen 5/325, which helped. We will continue to monitor. -Should avoid NSAIDs given patient is on warfarin. Generalized weakness -Patient is chronically ill and was recommended for rehab on last admission but was discharged home as he was only interested in going to the [facility] but there were no open beds -After further discussions, the patient would be interested in rehab placement on discharge to improve his strength -No signs of infection or metabolic derangement to explain his symptoms -CT of the head was negative, MRI negative -Cortisol level normal -PT/OT consults placed, recommend SNF. Anxiety and depression -Patient was started on TID Buspar on last admission, is not currently taking at this time. -Anxiety and depression could be related to his seizure-like activity. Mechanical heart valve present -Continue Warfarin with goal INR of 2.5-3.5 -INR in range during admission. Diabetes - Patient's home regimen held on admission - We will continue on his home Lantus 20 units twice daily - Continue BSG checks, sliding-scale insulin, hypoglycemic protocol Parkinsonism -Continue Carbidopa-Levodopa Polymyositis -Continue daily prednisone -Back on his baseline 5mg daily Knee pain - Knee pain chronic issue. - We will give Voltaren gel as needed or admitted to the hospital. Fluids: None Nutrition: Carb consistent, heart healthy. Should be mixed and moist as well, extensive discussion had with patient and family. They understand the risk of aspiration and would like to remove the mix to moist part of the diet. Code status: DVT ppx: On warfarin Consults: Neurology PT/OT: yes Case management:yes Dispo: pcu/tele Thank you for allowing me to participate in the care of your patient. -Dr. Tan Hammond PGY2 Admission and Anticipated Discharge Date Admission Date: December 19, 2022 Supervising Physician Co-Signing Physician Notes Resident Physician Supervision Note: I independently interviewed and examined the patient and verified the peña history and physical, reviewed labs and image studies and agree with resident findings and care plan. Subjective Patient was seen bedside this morning. States that his main complaint at this time is a headache in the left side of his forehead. States that Tylenol has not been working as much. He does complain of knee pain which has been chronic for some time. States that this pain started when he fell previously in the hospital. Denies any other issues or concerns at this time. Patient was complaining to the staff about the minced/moist diet. States that he hates it and is starving. Has seen [facility] which states he is a known aspirator. However patient refuses any modified diet consistencies. The patient and family were requesting a regular diet at that is what he follows at home. Was educated extensively about aspiration risk in the past as well as today. Due to the patient refusing minced and moist in him understanding the risks of regular diet, will switch to regular diet so patient eats as starvation will further prolong his hospital course. Review of Systems Review of Systems: All systems reviewed & are unremarkable except as noted in Subjective Physical Exam Physical Exam: General: In no acute distress, stated age, chronically ill appearing but non- toxic HEENT: Normocephalic, atraumatic, no scleral icterus, pupils around round, symmetrical, and reactive to light, moist mucus membranes, trachea midline, no thyromegaly Chest/Pulm: No respiratory distress, symmetrical chest expansion, clear breath sounds throughout Cardiac: RRR, no murmurs noted Abdomen: Negative for ascites and bruising, normoactive bowel sounds, soft, non- tender to palpation throughout Musculoskeletal: Symmetrical and without signs of acute trauma, upper and lower extremities with full ROM, no atrophy, spasticity, or flaccidity Extremities: Radial, dorsalis pedis, and posterior tibial pulses are intact and symmetrical, no edema noted in the BL LE's Skin: Warm, dry, no rashes , lesions, or scars noted Neuro: Alert and oriented to person, place, month, year, no focal defects, CN II-XII tested and intact,no tremors noted Psych: No acute distress Results & Data Results & Data Vital Signs (Past 12 Hours) Vital Signs Temp Pulse Pulse Resp BP Pulse Ox O2 Del Method 12/20/22 07:01 36.4 C L 74 20 116/74 98 Nasal Cannula 12/20/22 03:20 36.6 C 74 16 101/62 100 Nasal Cannula 12/19/22 22:01 95 H 12/19/22 22:56 36.5 C 76 20 110/71 96 Nasal Cannula O2 Flow Rate 12/20/22 07:01 2 12/20/22 03:20 2 12/19/22 22:01 12/19/22 22:56 2 Resident Activity Tracking Resident Involvement: Resident Care Provided Care Provided: Adult Hospital Medicine (2) Headache Headache chronicity pattern: chronic headache Headache type: unspecified Intractability: not intractable Qualified Code(s): R51.9 - Headache, unspecified; G89.29 - Other chronic pain (5) Anemia Anemia type: unspecified type Qualified Code(s): D64.9 - Anemia, unspecified (8) CAD (coronary artery disease) Associated angina: without angina Coronary Disease-Associated Artery/Lesion type: campo artery Teller vs. transplanted heart: campo heart Qualified Code(s): I25.10 - Atherosclerotic heart disease of campo coronary artery without angina pectoris (9) Diabetes Diabetes mellitus complication detail: with polyneuropathy Diabetes mellitus complication status: with neurologic complications Diabetes mellitus long-term insulin use: with long-term use Diabetes mellitus type: type 2 Qualified Code(s): E11.42 - Type 2 diabetes mellitus with diabetic polyneuropathy; Z79.4 - prison (current) use of insulin
[2022-12-20] MEDS ORDERED: METOCLOPRAMIDE HCL INJ 5 MG/ML 2 ML VIAL IV PRN (07:46)
[2022-12-20] MEDS ORDERED: ACETAMINOPHEN 325 MG TAB PO PRN (07:46)
[2022-12-20] MEDS: FUROSEMIDE 20 MG TAB PO SCH (08:02)
[2022-12-20] MEDS: levETIRAcetam 500 MG TAB PO SCH ×2 (08:02→19:54)
[2022-12-20] MEDS: CARBIDOPA/LEVODOPA 25/100MG TAB PO SCH ×3 (08:02→19:55)
[2022-12-20] MEDS: MAGNESIUM OXIDE 400 MG TAB PO SCH (08:02)
[2022-12-20] MEDS: TOPIRAMATE 100 MG TAB PO SCH ×2 (08:02→19:53)
[2022-12-20] MEDS: GABAPENTIN 600 MG TAB PO SCH (08:02)
[2022-12-20] MEDS: FERROUS SULFATE 325 MG TAB PO SCH (08:02)
[2022-12-20] MEDS: UMECLIDINIUM/VILANTEROL 62.5/25MCG 7 PUFFS/INHALER INH SCH (08:02)
[2022-12-20] MEDS: predniSONE 5 MG TAB PO SCH (08:02)
[2022-12-20] MEDS: PANTOprazole 40 MG TAB PO SCH (08:02)
[2022-12-20] MEDS: FLUTICASONE FUROATE 100MCG 14 PUFFS/INHALER INH SCH (08:03)
[2022-12-20] MEDS: ONDANSETRON INJ 2 MG/ML 2 ML VIAL IV PRN (08:05)
[2022-12-20] MEDS: LANTUS PER UNIT CHARGE SC SCH ×2 (08:23→21:20)
--- NOTE | 2022-12-20 08:27 | Neurology Consultation ---
Date of Consultation December 20, 2022 Assessment & Plan (1) Observed seizure-like activity: Patient presents with his typical spell that occurs only when hospitalized, agree with Dr. 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 He is back to baseline currently. MRI is again negative, no further workup recommended. Regarding his focal L temporal pain secondary to trauma, agree it is most consistent with concussion, no structural cause on multiple scans. Would avoid otherwise using sedating medications, needs time, rest, tylenol for pain. -- No further neurologic workup, continue current AED regimen -- We will sign off. Telehealth Consultation Telehealth Information Telehealth Information: I performed this visit using a real-time telehealth connection between my location and the patients location ([facility]). After connecting through interactive tele-video, patient was identified by name and date of and/or wristband check.Patient (or authorized healthcare senior human resources representative) was informed that this was a telemedicine visit and it was being conducted confidentially over secure lines. My office door was closed and no one else was present in the room with me.Patient (or authorized healthcare senior human resources representative) provided consent to proceed with the visit, expressed an u nderstanding of privacy and security of the telemedicine visit, and gave permission to have a hospital senior human resources representative in the room in order to assist with the visit and to conduct portions of the visit, as needed. I informed the patient (or authorized healthcare senior human resources representative) that I reviewed their record and presented the opportunity for them to ask any questions regarding the visit today. The patient agreed to participate. History of Present Illness Reason for Consultation: Spell Requesting Physician: Dr. Dwyer Attending Physician: Apoorva Dwyer MD History of Present Illness Xavi Bradford is a 77 yo M presenting after being sent from his PCPs office for described tachycardia and AMS which was not present on EMS arrival or arrival to the ED. While in the ED he had a typical spell he has when he is hospitalized with full body shaking he is reportedly unaware of. He has been seen by neurology and followed by Dr. Sheikh as an outpatient for these spells which are yet uncharacterized. He reports taking his keppra as prescribed. His main complaint today is L temporal pain he has had since a fall 10 days ago. He reports he feels nauseous due to the headache and pain and tylenol is not helping. He has had headaches in the past but not like this where the pain is localized to the place where he hit his head. Allergies Allergy/AdvReac Type Severity Reaction Status Date / Time bee venom protein (honey bee) Allergy Severe anaphylaxis Verified 12/09/22 17:08 Iodinated Contrast Media Allergy Severe Anaphylaxis Verified 12/09/22 17:08 shellfish derived Allergy Severe Anaphylaxis Verified 12/09/22 17:08 doxazosin Allergy Intermediate Rash Verified 12/09/22 17:08 tamsulosin [From Flomax] Allergy Intermediate Itching Verified 12/09/22 17:08 Tetanus Vaccines and Toxoid Allergy Unknown Unknown Verified 12/09/22 17:08 lamotrigine AdvReac Intermediate Confusion Verified 12/09/22 17:08 oxycodone [From Percocet] AdvReac Intermediate nausea/vomi Verified 12/09/22 17:08 ting propoxyphene [From Darvon] AdvReac Intermediate nausea/vomi Verified 12/09/22 17:08 ting Home Medications Medication Instructions Recorded Confirmed Type atorvastatin 40 mg tablet 40 mg PO HS 05/28/20 12/19/22 History fexofenadine 180 mg tablet 180 mg PO QAM 02/11/21 12/19/22 History (Karlee Allergy) allopurinol 100 mg tablet 100 mg PO HS 04/10/21 12/19/22 History cholecalciferol (vitamin D3) 50 4,000 unit PO HS 07/14/21 12/19/22 History mcg (2,000 unit) capsule (Vitamin D3) insulin glargine 100 unit/mL (3 20 unit subcut BID 07/26/21 12/19/22 History mL) subcutaneous pen (Lantus Solostar U-100 Insulin) acetaminophen 325 mg tablet 650 mg PO Q4H PRN pain #30 tabs 08/04/21 12/19/22 Rx fluticasone fur. 100 mcg-umeclid 1 inh inhalation QAM #60 ea 09/06/21 12/19/22 Rx 62.5 mcg-vilant 25 mcg inhalat.powder (Trelegy Ellipta) albuterol sulfate 90 mcg/actuation 2 puff inhalation Q4H PRN 09/27/21 12/19/22 History aerosol inhaler (Ventolin HFA) Shortness Of Breath Or Wheezing polyethylene glycol 3350 17 17 g PO BID 10/04/21 12/19/22 History gram/dose oral powder (Miralax) furosemide 20 mg tablet 20 mg PO QAM 11/24/21 12/19/22 History sennosides 8.6 mg tablet (Senokot) 8.6 mg PO QAM 11/24/21 12/19/22 History insulin aspart U-100 100 unit/mL 1 sliding scale dose subcut ACHS 02/26/22 12/19/22 History (3 mL) subcutaneous pen (Novolog FlexPen U-100 Insulin aspart) diclofenac sodium 1 % topical gel 2 g topical TID PRN Pain 05/21/22 12/19/22 History (Voltaren Arthritis Pain) ferrous sulfate 325 mg (65 mg 325 mg PO QAM #30 tabs 05/26/22 12/19/22 Rx iron) tablet,delayed release levetiracetam 500 mg tablet 1,000 mg PO BID #360 tabs 08/03/22 12/19/22 Rx (Keppra) cyanocobalamin (vitamin B-12) 1,000 mcg PO QAM 08/14/22 12/19/22 History 1,000 mcg tablet,extended release (Vitamin B-12 ER) gabapentin 300 mg capsule 600 mg PO QAM 08/14/22 12/19/22 History magnesium 250 mg tablet 250 mg PO QAM 08/14/22 12/19/22 History pantoprazole 20 mg tablet,delayed 20 mg PO QAM 08/14/22 12/19/22 History release (Protonix) potassium chloride 20 mEq 20 meq PO HS 08/14/22 12/19/22 History tablet,extended release prednisone 5 mg tablet 5 mg PO QAM 08/14/22 12/19/22 History ondansetron 4 mg disintegrating 4 mg PO Q6H PRN nausea and 08/24/22 12/19/22 Rx tablet vomiting #30 tabs calcium polycarbophil 625 mg 625 mg PO QAM #30 tabs 09/14/22 12/19/22 Rx tablet (Fiber (calcium polycarbophil)) gabapentin 300 mg capsule 300 mg PO HS 09/30/22 12/19/22 History lactulose 20 gram/30 mL oral 20 g PO PM PRN Constipation 09/30/22 12/19/22 History solution sodium chloride 0.65 % nasal spray 2 spray intranasal QID PRN DRYNESS 09/30/22 12/19/22 History aerosol (Saline Mist) topiramate 100 mg tablet 100 mg PO BID 09/30/22 12/19/22 History carbidopa 25 mg-levodopa 100 mg 1 tab PO TID #270 tabs 11/16/22 12/19/22 Rx tablet (Sinemet) dulaglutide 1.5 mg/0.5 mL 1.5 mg subcut WE 12/09/22 12/19/22 History subcutaneous pen injector (Trulicity) tramadol 50 mg tablet 50 mg PO Q6H PRN pain, moderate 12/13/22 12/19/22 Rx #15 tabs warfarin 5 mg tablet 5 - 7.5 mg PO DIRECTED #30 tabs 12/13/22 12/19/22 Rx Patient History Medical History SHYANN (acute kidney injury) Anemia history of blood transfusion, 2020 Anxiety Aortic ectasia, thoracic Aspiration pneumonia hx of--per pt was due to pain medications Asthma inhaler daily and prn CAD (coronary artery disease) follows with Dr. Chau Chronic dyspnea Chronic kidney disease, stage 3a Chronic pulmonary aspiration Chronic respiratory failure with hypoxia Chronic use of steroids Coagulopathy Constipated Current use of director long term care anticoagulation warfarin daily Depression Diabetes IDDM Diabetic peripheral neuropathy Dysphagia Edema Fall Generalized weakness GI bleed Gout Headache Hearing deficit Heart failure > 70% History of seizures last 2019--on Keppra/Topiramate--follows with Dr. 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 inhaler daily and prn and uses 2L N/C at hs Kidney stones Migraine Neurogenic claudication due to lumbar spinal stenosis On home oxygen therapy 2L at hs Osteoarthritis of left knee Pancytopenia Parkinsonism per pt has a difficulty swallowing, states certain foods can be difficult to eat Pneumonia hx of, per pt last admission @ [facility] was 05/2022 Polymyositis Prostate cancer radiation Pyelonephritis Rheumatoid arthritis Seizure disorder Seizure-like activity Shortness of breath per pt on with exertion Somatic dysfunction of cervical region Stroke-like symptom 12/2019, w/ blurry vision and dysarthria. mild R sided wkness. attending outpatient physical therapy w/ good improvement in strength (5+/5 strength of all 4 extremities as of 05/28/20) Supratherapeutic INR Thoracic ascending aortic aneurysm s/p repair TIA (transient ischemic attack) 2019--no deficits--follows with Dr. Sheikh Urinary tract infection Surgical History H/O hernia repair History of aortic valve replacement 2004 @ [facility] in [place], [place] History of appendectomy History of bilateral cataract extraction History of cardiac cath x3--2018 @ [facility] with 1 stent placed/2019 @ [facility]/last 04/2021 @ [facility] History of cholecystectomy History of colonoscopy History of esophagogastroduodenoscopy (EGD) History of fusion of cervical spine normal ROM History of gastric bypass 2007--lap band History of heart artery stent x1--2017 @ [facility] History of lumbar spinal fusion History of lung biopsy 2019 History of partial nephrectomy 1986 on right kidney History of prostate biopsy malignant History of tonsillectomy History of tooth extraction all upper teeth removed Mechanical heart valve present Family History Mother , age 87 of pulmonary issues Rheumatoid arthritis Father , in his mid 80s of a stroke Stroke Other Coronary heart disease No family history of adverse response to anesthesia Social History Smoking Status: Never smoker Second Hand Exposure: No; Do You Dip or Chew Tobacco: No; Tobacco Cessation Education Requested by Patient: No Hx Alcohol Use: No Hx Substance Use: No Preferred Language: German Communication Ability: Effective Hearing Ability: Hard of Hearing Label Maker Required: No Beliefs That Will Affect Care: None marital status: / Current Living Situation: Personal Care Facility Current Living Situation Comment: [facility] current occupational status: retired 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 Oriented to person, place, and time. Fluent. Comprehension intact. Affect appropriate. Cranial Nerves: II: Pupils equal and reactive III/IV/: Versions intact without nystagmus, L ptosis VII: Facial expression symmetric, VIII: Hearing intact to voice Motor: Strength was symmetric and antigravity throughout. There were no abnormal movements. Reflexes: Unable to assess over telemedicine Results & Data Vital Signs (Past 12 Hours) Vital Signs Temp Pulse Pulse Resp BP Pulse Ox O2 Del Method 12/20/22 07:01 36.4 C L 74 20 116/74 98 Nasal Cannula 12/20/22 03:20 36.6 C 74 16 101/62 100 Nasal Cannula 12/19/22 22:01 95 H 12/19/22 22:56 36.5 C 76 20 110/71 96 Nasal Cannula O2 Flow Rate 12/20/22 07:01 2 12/20/22 03:20 2 12/19/22 22:01 12/19/22 22:56 2 Laboratory Results Abnormal lab results 12/19/22 12/19/22 12/19/22 Range/Units 10:16 10:16 10:16 WBC (4.8-10.8) K/ul RBC 4.00 L (4.70-6.10) M/uL Hgb 10.8 L (14.0-18.0) g/dl Hct 34.2 L (42.0-52.0) % MCHC 31.6 L (32.0-36.0) g/dL RDW Std Deviation 48.4 H (36.4-46.3) fL RDW Coeff of Lianne 15.8 H (11.5-14.5) % Lymph # (Auto) 1.05 L (1.2-3.4) K/uL ESR (0-20) mm/hr PT 28.3 H (9.0-12.0) Seconds INR 2.8 H (0.9-1.1) APTT 37.6 H (21.0-31.0) Seconds Chloride (98-107) mmol/L BUN 31 H (6-23) mg/dl BUN/Creatinine Ratio 22.3 H (10-20) Glucose 153 H (70-99(Fasting)) mg/dl POC Glucose (70-99) mg/dl Globulin 2.3 L (2.5-4.0) gm/dl 12/19/22 12/19/22 12/19/22 Range/Units 10:16 13:31 17:45 WBC (4.8-10.8) K/ul RBC (4.70-6.10) M/uL Hgb (14.0-18.0) g/dl Hct (42.0-52.0) % MCHC (32.0-36.0) g/dL RDW Std Deviation (36.4-46.3) fL RDW Coeff of Lianne (11.5-14.5) % Lymph # (Auto) (1.2-3.4) K/uL ESR 21 H (0-20) mm/hr PT (9.0-12.0) Seconds INR (0.9-1.1) APTT (21.0-31.0) Seconds Chloride (98-107) mmol/L BUN (6-23) mg/dl BUN/Creatinine Ratio (10-20) Glucose (70-99(Fasting)) mg/dl POC Glucose 169 H 161 H (70-99) mg/dl Globulin (2.5-4.0) gm/dl 12/19/22 12/20/22 12/20/22 Range/Units 23:00 05:28 05:34 WBC 4.25 L (4.8-10.8) K/ul RBC 3.78 L (4.70-6.10) M/uL Hgb 10.3 L (14.0-18.0) g/dl Hct 32.6 L (42.0-52.0) % MCHC 31.6 L (32.0-36.0) g/dL RDW Std Deviation 49.6 H (36.4-46.3) fL RDW Coeff of Lianne 15.8 H (11.5-14.5) % Lymph # (Auto) (1.2-3.4) K/uL ESR (0-20) mm/hr PT (9.0-12.0) Seconds INR (0.9-1.1) APTT (21.0-31.0) Seconds Chloride (98-107) mmol/L BUN (6-23) mg/dl BUN/Creatinine Ratio (10-20) Glucose (70-99(Fasting)) mg/dl POC Glucose 148 H 113 H (70-99) mg/dl Globulin (2.5-4.0) gm/dl 12/20/22 12/20/22 12/20/22 Range/Units 05:34 05:34 07:14 WBC (4.8-10.8) K/ul RBC (4.70-6.10) M/uL Hgb (14.0-18.0) g/dl Hct (42.0-52.0) % MCHC (32.0-36.0) g/dL RDW Std Deviation (36.4-46.3) fL RDW Coeff of Lianne (11.5-14.5) % Lymph # (Auto) (1.2-3.4) K/uL ESR (0-20) mm/hr PT 27.8 H (9.0-12.0) Seconds INR 2.7 H (0.9-1.1) APTT (21.0-31.0) Seconds Chloride 109 H (98-107) mmol/L BUN 27 H (6-23) mg/dl BUN/Creatinine Ratio (10-20) Glucose 109 H (70-99(Fasting)) mg/dl POC Glucose 121 H (70-99) mg/dl Globulin (2.5-4.0) gm/dl Diagnostic Findings Chest X-Ray 12/19/22 10:30 XR chest 1V portable CLINICAL HISTORY: weakness TECHNIQUE: Single frontal radiograph of the chest was obtained. Comparison: Comparison is made to chest radiograph 11/29/2022 FINDINGS: Stable median sternotomy wires. Cardiomegaly is noted. The aortic arch is calcified. Atelectasis and postsurgical changes are seen in the left lung base. No evidence of pleural effusion or pneumothorax. IMPRESSION: No acute chest disease. ACT 112: Negative or not required by law. Electronically signed by: Russell Sifuentes M.D. 12/19/2022 11:[address] 12/19/22 10:30 CT head/brain wo con CLINICAL HISTORY: 77 years-old Male with left sided headache. The left-sided headache TECHNIQUE: Multiple axial CT images of the head were obtained without contrast. A dose lowering technique was utilized adhering to the principles of ALARA. CT DOSE: 625.80 mGy.cm COMPARISON: 12/12/2022 FINDINGS: No acute intracranial hemorrhage, midline shift, intracranial mass, hydrocephalus, territorial ischemia or abnormal extra-axial collection. Involutional changes with chronic microvascular ischemic disease. Cerebrovascular calcifications. The calvarium is intact. Mild/moderate mucosal thickening of the paranasal sinuses. Left greater than right mastoid and middle ear effusions. Prior bilateral lens repair. IMPRESSION: No acute intracranial abnormality. ACT 112: Negative or not required by law. The above report was generated using voice recognition software. It may contain grammatical, syntax or spelling errors. Electronically signed by: Delvis Orozco M.D. 12/19/2022 11:37 AM Brain MRI 12/19/22 13:13 MR brain seizure wo/w con CLINICAL HISTORY: seizures in the ED after fall TECHNIQUE: Multiplanar and multisequence MR images of the brain were obtained prior to and following administration of gadolinium contrast. Comparison: Comparison is made to CT head 12/19/2022 FINDINGS: No abnormal restricted diffusion is identified. Foci of T2 and FLAIR hyperintensity are noted in the paraventricular areas consistent with chronic small vessel ischemic disease. Ex vacuo ventriculomegaly and sulcal enlargement is noted compatible with diffuse volume loss. Focal encephalomalacia in the right cerebellum.No mass or abnormal enhancement is seen. There is no mass effect or midline shift. There is no evidence of acute intraparenchymal hemorrhage. No extra axial fluid collections are seen. The corpus callosum, pituitary gland, and cerebellar tonsils appear grossly unremarkable. High- resolution images of the temporal lobes do not demonstrate any signal abnormality. Flow voids of the major intracranial arterial vessels are identified. The imaged portions of the paranasal sinuses, mastoid air cells, and orbits are unremarkable. IMPRESSION: No acute abnormality. In particular, no edema in the temporal lobes bilaterally in this postictal patient. ACT 112: Negative or not required by law. Electronically signed by: Russell Sifuentes M.D. 12/19/2022 6:48 PM
[2022-12-20] MEDS: POLYETHYLENE (MIRALAX) 17 GM PACK PO SCH ×2 (09:09→19:54)
[2022-12-20] MEDS ORDERED: HYDROCODONE/ACETAMOPHEN 5/325MG TAB PO STA (10:19)
[2022-12-20] MEDS: WARFARIN SOD 7.5 MG TAB PO SCH (17:28)
[2022-12-20] MEDS: allopurinoL 100 MG TAB PO SCH (19:53)
[2022-12-20] MEDS: ATORVASTATIN 40 MG TAB PO SCH (19:53)
[2022-12-20] MEDS: POTASSIUM CHLORIDE CRTAB 20 MEQ TABCR PO SCH (19:55)
[2022-12-20] MEDS: GABAPENTIN 300 MG CAP PO SCH (19:55)
[2022-12-20] MEDS: traMADol HCL 50 MG TABLET PO PRN (21:26)
[2022-12-21 06:18] LABS: Basophils # (auto) 0.02 K/uL (0.00-0.20); Basophils % (auto) 0.5 %; Eosinophils # (auto) 0.16 K/uL (0.00-0.50); Hematocrit (blood only) 31.9 % (42.0-52.0); Hemoglobin 9.9 g/dl (14.0-18.0); Immature Granulocytes # (auto) 0.03 K/uL (0.01-0.20); Immature Granulocytes % (auto) 0.8 %; Lymphocytes # (auto) 1.05 K/uL (1.20-3.40); Lymphocytes % (auto) 26.3 %; Mean Corpuscular Hemoglobin 26.9 pg (25.0-34.0); Mean Corpuscular Volume 86.7 fL (80.0-100.0); Mean Platelet Volume 10.7 fL (9.4-12.4); Monocytes # (auto) 0.29 K/uL (0.11-0.59); Monocytes % (auto) 7.3 %; Neutrophils # (auto) 2.44 K/uL (1.40-6.50); Neutrophils % (auto) 61.1 %; Platelet Count 119 K/uL (130-400); RDW Coefficient of Variation 15.7 % (11.5-14.5); RDW Standard Deviation 50.6 fL (36.4-46.3); Red Blood Count 3.68 M/uL (4.70-6.10); White Blood Count 3.99 K/ul (4.8-10.8)
[2022-12-21 06:33] LABS: INR 2.4 (0.9-1.1); Prothrombin Time 24.5 Seconds (9.0-12.0)
[2022-12-21 06:35] LABS: BUN Creatinine Ratio 20.3 (10-20); Calcium 8.7 mg/dl (8.6-10.3); Creatinine Clr Calc Pharmacy 51.9 ml/min; Est GFR (African American) 52.1 ml/min; Magnesium 2.2 mg/dl (1.7-2.4); Potassium 3.9 mmol/L (3.5-5.1)
[2022-12-21] MEDS ORDERED: LACTATED RINGER'S 1,000 ML IV SCH (06:45)
--- NOTE | 2022-12-21 06:45 | Discharge Summary ---
Date of Service December 21, 2022 Admission HPI Per Admitting Provider Xavi is a 77-year-old male with a past medical history of seizure-like activity, parkinsonism, CKD 3, mechanical heart valve on Coumadin (Goal INR 2.53.5), DM2, RA/polymyositis on daily prednisone, CAD, interstitial lung disease, and anxiety who presented to the [facility] ED via EMS on 12/19 from his PCP's office due to tachycardia and AMS. EMS reports that the patient was not tachycardic, no altered on their arrival. The patient was reportedly hypoxic at 78% on RA on ED arrival but otherwise stable. Labs were significant for a BUN of 31, glucose of 153, and high sen trop WNL. Chest xray was read as "No acute matt st disease.". CT of the head wo con was read as "No acute intracranial abnormality.". The patient noted generalized weakness, headache, and nausea on arrival per ED staff. Prior to admission the patient was given 250 mL NSS and 4 mg IV zofran. The patient was last admitted to [facility] from 12/09-12/13 after sustaining a fall at home and reported seizure-like activity in the ED after arrival. He had mu ltiple episodes of seizure-like activity during his admission, it was uncertain if this activity was truly due to seizures or non-epileptiform events due to severe anxiety. His seizures broke after doses of ativan and he was continued on his antiepileptic medications on discharge. The etiology of his fall was unknown as he has multiple risk factors including seizure-like activity, OA with baseline ambulatory dysfunction, multiple chronic comorbidities, and possible arrhythmia. The patient was started on TID Buspar for anxiety. He was thought to be experiencing an exacerbation of his ILD and his baseline steroid dose was increased to a steroid burst w/taper, he was also started on a 7 day course of Augmentin. He was evaluated by PT/OT who recommended rehab on DC, he preferred to be discharged to the [facility], but there were no available beds at the time of discharge. At the time of the exam the patient was lying in bed in no acute distress, he was alert and oriented at the beginning of the exam. He states that since his discharge home on 12/13 he has had the ongoing left sided headache, generalized weakness, poor oral intake, and nausea. He states that he completed his course of Augmentin and Prednisone taper. When asked, he states that he is not taking the Buspar ordered on last discharge for anxiety, he states "I just don't like taking those type of medications". He states that he drove to the [facility] this am for Holter Monitor placement. While in the waiting room he tells me that other patients called a nurse to evaluate him as he was altered. He tells me he remembers the entire event. He did note that he was fatigued and less alert then normal, he thinks that he might have been starting to have a seizure. The nurse called EMS as they did not think he was safe to drive home. He confirms that he took all his am medications, including his keppra and topiramate. Shortly after leaving the room the patient's nurse alerted us that the patient was having seizure -like activity. On re-examination the patient was unresponsive with active, full body tremors. He was given 1gm IV Ativan which broke the seizure-like activity, the patient was postictal after the event but stable. Please refer to Dr. Goldsmith's attestation for any changes to the treatment plan Discharge Data Allergies Allergy/AdvReac Type Severity Reaction Status Date / Time bee venom protein (honey bee) Allergy Severe anaphylaxis Verified 12/09/22 17:08 Iodinated Contrast Media Allergy Severe Anaphylaxis Verified 12/09/22 17:08 shellfish derived Allergy Severe Anaphylaxis Verified 12/09/22 17:08 doxazosin Allergy Intermediate Rash Verified 12/09/22 17:08 tamsulosin [From Flomax] Allergy Intermediate Itching Verified 12/09/22 17:08 Tetanus Vaccines and Toxoid Allergy Unknown Unknown Verified 12/09/22 17:08 lamotrigine AdvReac Intermediate Confusion Verified 12/09/22 17:08 oxycodone [From Percocet] AdvReac Intermediate nausea/vomi Verified 12/09/22 17:08 ting propoxyphene [From Darvon] AdvReac Intermediate nausea/vomi Verified 12/09/22 17 :08 ting Consultations 12/19/22 12:14 ED Decision to Admit Stat 12/19/22 20:48 Consult Neurology Routine Ordered Studies 12/19/22 10:30 CT head/brain wo con Stat 12/19/22 13:13 MRI Brain [MR brain seizure wo/w con] Stat Hospital Course (1) Observed seizure-like activity: (2) Headache: (3) Generalized weakness: (4) Depression: (5) Anemia: (6) Mechanical heart valve present: (7) Anxiety: (8) CAD (coronary artery disease): (9) Diabetes: (10) Interstitial lung disease due to connective tissue disease: (11) Parkinsonism: (12) Polymyositis: (13) Knee pain: (14) Psychogenic nonepileptic seizure: Plan Psychogenic nonepileptic seizure -Received 1 g of Ativan on admission which broke witnessed seizure. -Currently on Keppra and Topamax outpatient. Given an extra gram of IV Keppra on admission. -CT head and MRI of the brain negative -Seizure precautions ordered -Neurology consulted, states that these episodes represent psychogenic nonepileptic attacks. No further neurological work-up recommended. Continue current AED regimen. -We will consider treating underlying anxiety/depression to control seizures in the future. Headache -Patient has been having the left-sided, frontal region -Has been ongoing since last admission after his fall -Has had [address]'s wo con, since fall. -Most likely postconcussion symptoms from fall during previous admission. -Given IV Tylenol at time of admission. -Gave 1 dose of hydrocodone/acetaminophen 5/325, which helped. We will continue to monitor. -Should avoid NSAIDs given patient is on warfarin. Generalized weakness -Patient is chronically ill and was recommended for rehab on last admission but was discharged home as he was only interested in going to the [facility] but there were no open beds -After further discussions, the patient would be interested in rehab placement on discharge to improve his strength -No signs of infection or metabolic derangement to explain his symptoms -CT of the head was negative, MRI negative -Cortisol level normal -PT/OT consults placed, recommend SNF. Anxiety and depression -Patient was started on TID Buspar on last admission, is not currently taking at this time. -Anxiety and depression could be related to his seizure-like activity. Mechanical heart valve present -Continue Warfarin with goal INR of 2.5-3.5 -INR in range during admission. Diabetes - Patient's home regimen held on admission - We will continue on his home Lantus 20 units twice daily - Continue BSG checks, sliding-scale insulin, hypoglycemic protocol Parkinsonism -Continue Carbidopa-Levodopa Polymyositis -Continue daily prednisone -Back on his baseline 5mg daily Knee pain - Knee pain chronic issue. - We will give Voltaren gel as needed or admitted to the hospital. Fluids: None Nutrition: Carb consistent, heart healthy. Should be mixed and moist as well, extensive discussion had with patient and family. They understand the risk of aspiration and would like to remove the mix to moist part of the diet. Code status: DVT ppx: On warfarin Consults: Neurology PT/OT: yes Case management:yes Dispo: pcu/tele Thank you for allowing me to participate in the care of your patient. -Dr. Tan Hammond PGY2 Discharge Plan Discharge Items Reason For Visit: GENERALIZED WEAKNESS, HEADACHE Follow-up/Referrals: aTn Hammond, [Primary Care Provider] - Medications and DC Order Prescriptions: No Action Trelegy Ellipta 100-62.5-25 mcg blister with device 1 inh inhalation QAM Qty: 60 5RF levetiracetam [Keppra] 500 mg tablet 1,000 mg PO BID Qty: 360 3RF carbidopa-levodopa [Sinemet] 25-100 mg tablet 1 tab PO TID Qty: 270 2RF cholecalciferol (vitamin D3) [Vitamin D3] 50 mcg (2,000 unit) capsule 4,000 unit PO HS atorvastatin 40 mg tablet 40 mg PO HS fexofenadine [Karlee Allergy] 180 mg Tablet 180 mg PO QAM acetaminophen 325 mg Tablet 650 mg PO Q4H PRN (Reason: pain) Qty: 30 0RF Rx Instructions: OTC albuterol sulfate [Ventolin HFA] 90 mcg/actuation HFA aerosol inhaler 2 puff INHALATION Q4H PRN (Reason: Shortness Of Breath Or Wheezing) diclofenac sodium [Voltaren Arthritis Pain] 1 % Gel 2 g TOPICAL TID PRN (Reason: Pain) Rx Instructions: left knee ferrous sulfate 325 mg (65 mg iron) Tablet,Delayed Release (Dr/Ec) 325 mg PO QAM Qty: 30 0RF prednisone 5 mg Tablet 5 mg PO QAM gabapentin 300 mg capsule 600 mg PO QAM Rx Instructions: 600mg in am/300mg in pm pantoprazole [Protonix] 20 mg Tablet,Delayed Release (Dr/Ec) 20 mg PO QAM potassium chloride 20 mEq Tablet Extended Release 20 meq PO HS cyanocobalamin (vitamin B-12) [Vitamin B-12] 1,000 mcg Tablet Extended Release 1,000 mcg PO QAM magnesium 250 mg Tablet 250 mg PO QAM ondansetron 4 mg tablet,disintegrating 4 mg PO Q6H PRN (Reason: nausea and vomiting) Qty: 30 0RF Trulicity 1.5 mg/0.5 mL pen injector 1.5 mg SUBCUT WE Rx Instructions: Take sun tramadol 50 mg tablet 50 mg PO Q6H PRN (Reason: pain, moderate) Qty: 15 0RF warfarin 5 mg tablet 5 - 7.5 mg PO DIRECTED Qty: 30 0RF Rx Instructions: Take according to anticoagulation clinic. 5mg on Sunday/. 7.5mg on Sunday, Sunday, Sunday, Sunday, Sunday. allopurinol 100 mg tablet 100 mg PO HS insulin glargine [Lantus Solostar U-100 Insulin] 100 unit/mL (3 mL) insulin pen 20 unit SUBCUT BID polyethylene glycol 3350 [Miralax] 17 gram/dose powder 17 g PO BID furosemide 20 mg tablet 20 mg PO QAM sennosides [Senokot] 8.6 mg tablet 8.6 mg PO QAM insulin aspart U-100 [Novolog FlexPen U-100 Insulin] 100 unit/mL (3 mL) insulin pen 1 sliding scale dose subcut ACHS Rx Instructions: supplemental scale for meal-time coverage and bed-time coverage. calcium polycarbophil [Fiber (calcium polycarbophil)] 625 mg Tablet 625 mg PO QAM Qty: 30 0RF Rx Instructions: OTC gabapentin 300 mg capsule 300 mg PO HS topiramate 100 mg tablet 100 mg PO BID Saline Mist 0.65 % aerosol,spray 2 spray intranasal QID PRN (Reason: DRYNESS) lactulose 20 gram/30 mL solution 20 g PO PM PRN (Reason: Constipation) Admission Data Admit Date/Time: 12/20/22 12:26 Attending Provider: Apoorva Dwyer Admit Provider: Toni Goldsmith Primary Care Provider: Tan Hammond Other Providers: Toni Goldsmith
[2022-12-21] MEDS: INSULIN ASPART PER UNIT CHARGE SC SCH ×4 (07:51→20:49)
[2022-12-21] MEDS: TOPIRAMATE 100 MG TAB PO SCH ×2 (08:06→20:52)
[2022-12-21] MEDS: levETIRAcetam 500 MG TAB PO SCH ×2 (08:07→20:52)
[2022-12-21] MEDS: predniSONE 5 MG TAB PO SCH (08:07)
[2022-12-21] MEDS: FUROSEMIDE 20 MG TAB PO SCH (08:07)
[2022-12-21] MEDS: FERROUS SULFATE 325 MG TAB PO SCH (08:08)
[2022-12-21] MEDS: GABAPENTIN 600 MG TAB PO SCH (08:08)
[2022-12-21] MEDS: MAGNESIUM OXIDE 400 MG TAB PO SCH (08:08)
[2022-12-21] MEDS: PANTOprazole 40 MG TAB PO SCH (08:08)
[2022-12-21] MEDS: CARBIDOPA/LEVODOPA 25/100MG TAB PO SCH ×3 (08:08→20:51)
[2022-12-21] MEDS: FLUTICASONE FUROATE 100MCG 14 PUFFS/INHALER INH SCH (08:09)
[2022-12-21] MEDS: UMECLIDINIUM/VILANTEROL 62.5/25MCG 7 PUFFS/INHALER INH SCH (08:09)
[2022-12-21] MEDS: POLYETHYLENE (MIRALAX) 17 GM PACK PO SCH ×2 (08:10→20:53)
[2022-12-21] MEDS: traMADol HCL 50 MG TABLET PO PRN (08:10)
[2022-12-21] MEDS: DICLOFENAC SOD 1% GEL 100 GM TUBE EXT PRN (08:18)
[2022-12-21] MEDS: LANTUS PER UNIT CHARGE SC SCH ×2 (08:18→20:49)
[2022-12-21] MEDS: ONDANSETRON INJ 2 MG/ML 2 ML VIAL IV PRN (09:18)
--- NOTE | 2022-12-21 11:34 | Hospitalist Progress Note ---
Date of Service December 21, 2022 Assessment & Plan (1) Observed seizure-like activity: (2) Headache: (3) Generalized weakness: (4) Depression: (5) Anemia: (6) Mechanical heart valve present: (7) Anxiety: (8) CAD (coronary artery disease): (9) Diabetes: (10) Interstitial lung disease due to connective tissue disease: (11) Parkinsonism: (12) Polymyositis: (13) Knee pain: (14) Psychogenic nonepileptic seizure: (15) SHYANN (acute kidney injury): Plan Psychogenic nonepileptic seizure -Received IV doses of Lorazepam and Keppra on admission. -Currently on Keppra and Topamax outpatient. -CT head and MRI of the brain negative -Neurology consulted, states that these episodes represent psychogenic nonepileptic attacks. No further neurological work-up recommended. Continue current AED regimen. Headache -Has been having the left-sided, frontal since last admission after his fall -[address]'s wo con, since fall. -Most likely postconcussion symptoms from fall during previous admission. -Given IV Tylenol at time of admission. -Gave 1 dose of hydrocodone/acetaminophen 5/325, which helped. Did not require any additional hydrocodone. -Currently on Tylenol or tramadol as needed. Acute kidney injury -Patient with a slight bump to his creatinine on 12/21-1.48. -We will give 1 L LR 125 mL/hour. We will recheck BMP this afternoon. Generalized weakness -Patient is chronically ill and was recommended for rehab on last admission but was discharged home as he was only interested in going to the [facility] but there were no open beds -After further discussions, the patient would be interested in rehab placement on discharge to improve his strength -No signs of infection or metabolic derangement to explain his symptoms. -CT of the head was negative, MRI negative -Cortisol level normal -PT/OT consults placed, recommend SNF. Working with case management at this time pending placement. Anxiety and depression -Patient was started on TID Buspar on last admission, is not currently taking at this time. -consider resuming on discharge Mechanical heart valve present -Continue Warfarin with goal INR of 2.5-3.5 -INR 2.4 on 12/21 Diabetes - Patient's home regimen held on admission - We will continue on his home Lantus 20 units twice daily - Continue BSG checks, sliding-scale insulin, hypoglycemic protocol Parkinsonism -Continue Carbidopa-Levodopa Polymyositis -Continue daily prednisone -Back on his baseline 5mg daily Knee pain - Knee pain chronic issue. - We will give Voltaren gel as needed or admitted to the hospital. Fluids: 1 L LR at 125 mL an hour Nutrition: Carb consistent, heart healthy. Should be mixed and moist as well, extensive discussion had with patient and family. They understand the risk of aspiration and would like to remove the mix to moist part of the diet. Code status: DVT ppx: On warfarin Consults: Neurology PT/OT: yes Case management:yes, pending placement at this time. Dispo: pcu/tele Admission and Anticipated Discharge Date Admission Date: December 20, 2022 Supervising Physician Co-Signing Physician Notes Resident Physician Supervision Note: I independently interviewed and examined the patient and verified the peña history and physical, reviewed labs and image studies and agree with resident findings and care plan. Subjective Patient was seen bedside this morning. States that he still having left-sided headache and some nausea. No other issues or concerns at this time Review of Systems Review of Systems: All systems reviewed & are unremarkable except as noted in Subjective Physical Exam Physical Exam: Constitutional: well-appearing, no acute distress HEENT: NCAT, no conjunctival injection CV: regular rhythm, no murmur appreciated, extremities well-perfused, no LE edema Resp: CTABL, no wheezes/rales/rhonchi appreciated, no increased work of breathing GI: soft, nondistended, nontender, BS normoactive MSK: no gross deformities appreciated Skin: warm, dry, no rash appreciated Neuro: alert, oriented, no focal neurologic deficit appreciated Results & Data Results & Data Vital Signs (Past 12 Hours) Vital Signs Temp Pulse Pulse Resp BP Pulse Ox O2 Del Method 12/21/22 07:15 69 12/21/22 08:44 Room Air 12/21/22 07:34 36.5 C 56 L 19 109/67 100 Room Air 12/21/22 03:39 36.5 C 58 L 16 97/61 L 98 Room Air Resident Activity Tracking Resident Involvement: Resident Care Provided Care Provided: Adult Hospital Medicine (2) Headache Headache chronicity pattern: chronic headache Headache type: unspecified Intractability: not intractable Qualified Code(s): R51.9 - Headache, unspecified; G89.29 - Other chronic pain (5) Anemia Anemia type: unspecified type Qualified Code(s): D64.9 - Anemia, unspecified (8) CAD (coronary artery disease) Associated angina: without angina Coronary Disease-Associated Artery/Lesion type: [place] artery [place] vs. 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
[2022-12-21 16:09] LABS: BUN Creatinine Ratio 21.2 (10-20); Calcium 8.5 mg/dl (8.6-10.3); Creatinine Clr Calc Pharmacy 55.5 ml/min; Est GFR (African American) 57.3 ml/min; Est GFR (Non-African American) 49.4 ml/min; Potassium 4.3 mmol/L (3.5-5.1)
[2022-12-21] MEDS: WARFARIN SOD 5 MG TAB PO SCH (17:00)
[2022-12-21] MEDS: MAGNESIUM HYDROXIDE SUSP 30 ML UDC PO PRN (20:51)
[2022-12-21] MEDS: GABAPENTIN 300 MG CAP PO SCH (20:51)
[2022-12-21] MEDS: ATORVASTATIN 40 MG TAB PO SCH (20:52)
[2022-12-21] MEDS: allopurinoL 100 MG TAB PO SCH (20:52)
[2022-12-21] MEDS: POTASSIUM CHLORIDE CRTAB 20 MEQ TABCR PO SCH (20:52)
--- NOTE | 2022-12-22 07:03 | Hospitalist Progress Note ---
Date of Service December 22, 2022 Assessment & Plan (1) Observed seizure-like activity: (2) Headache: (3) Generalized weakness: (4) Depression: (5) Anemia: (6) Mechanical heart valve present: (7) Anxiety: (8) CAD (coronary artery disease): (9) Diabetes: (10) Interstitial lung disease due to connective tissue disease: (11) Parkinsonism: (12) Polymyositis: (13) Knee pain: (14) Psychogenic nonepileptic seizure: (15) SHYANN (acute kidney injury): Plan Psychogenic nonepileptic seizure -Received IV doses of Lorazepam and Keppra on admission. -Currently on Keppra and Topamax outpatient. -CT head and MRI of the brain negative -Neurology consulted, states that these episodes represent psychogenic nonepileptic attacks. No further neurological work-up recommended. Continue current AED regimen. Headache Postconcussional syndrome -Has been having the left-sided, frontal since last admission after his fall -[address]'s wo con, since fall. -Most likely postconcussion symptoms from fall during previous admission. -Pain controlled with prn prain meds -PT/OT recommend inpatient rehab, placement pending. Acute kidney injury-resolved -Patient with a slight bump to his creatinine on 12/21. -Resolved with IV fluids. Generalized weakness -Neg work up - No sign of infection. Neg CT head, MRI brain. Normal cortisol. -Patient is chronically ill and was recommended for rehab on last admission but was discharged home as he was only interested in going to the [facility] but there were no open beds -patient now interested in rehab placement -PT/OT consults as above, placement pending. Anxiety and depression -Patient was started on TID Buspar on last admission, is not currently taking at this time. -consider resuming on discharge Mechanical heart valve present -Continue Warfarin with goal INR of 2.5-3.5 -Current schedule of 7.5mg SuMoWeFrSa, 5mg TuTh -INR 1.8 on 12/22/2022, given extra 2.5 mg. Recheck INR in the a.m. Diabetes - Patient's home regimen held on admission - We will continue on his home Lantus 20 units twice daily - Continue BSG checks, sliding-scale insulin, hypoglycemic protocol Parkinsonism -Continue Carbidopa-Levodopa Polymyositis -Continue daily prednisone -Back on his baseline 5mg daily Knee pain - Knee pain chronic issue. - We will give Voltaren gel as needed or admitted to the hospital. MRSA swab- positive, no need for abx at this time. Fluids: None Nutrition: Carb consistent, heart healthy. Should be mixed and moist as well, extensive discussion had with patient and family. They understand the risk of aspiration and would like to remove the mix to moist part of the diet. Code status: Full code DVT ppx: On warfarin Consults: Neurology PT/OT: yes Case management:yes, pending placement at this time. Dispo: pcu/tele Admission and Anticipated Discharge Date Admission Date: December 20, 2022 Supervising Physician Co-Signing Physician Notes Resident Physician Supervision Note: I independently interviewed and examined the patient and verified the peña history and physical, reviewed labs and image studies and agree with resident findings and care plan. Subjective Patient was seen bedside this morning. No issues or concerns at this time. States that his headache is better today. Review of Systems Review of Systems: All systems reviewed & are unremarkable except as noted in Subjective Physical Exam Physical Exam: Constitutional: well-appearing, no acute distress HEENT: NCAT, no conjunctival injection CV: regular rhythm, no murmur appreciated, extremities well-perfused, no LE edema Resp: CTABL, no wheezes/rales/rhonchi appreciated, no increased work of breathing GI: soft, nondistended, nontender, BS normoactive MSK: no gross deformities appreciated Skin: warm, dry, no rash appreciated Neuro: alert, oriented, no focal neurologic deficit appreciated Results & Data Results & Data Vital Signs (Past 12 Hours) Vital Signs Temp Pulse Pulse Resp BP Pulse Ox O2 Del Method 12/22/22 03:19 36.4 C L 45 L 16 111/69 94 Room Air 12/21/22 23:00 77 12/21/22 23:36 36.5 C 60 16 102/55 L 97 Room Air 12/21/22 19:06 36.5 C 63 18 114/70 96 Room Air (2) Headache Headache chronicity pattern: chronic headache Headache type: unspecified Intractability: not intractable Qualified Code(s): R51.9 - Headache, unspecified; G89.29 - Other chronic pain (5) Anemia Anemia type: unspecified type Qualified Code(s): D64.9 - Anemia, unspecified (8) CAD (coronary artery disease) Associated angina: without angina Coronary Disease-Associated Artery/Lesion type: [place] artery [place] vs. 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
[2022-12-22] MEDS: FLUTICASONE FUROATE 100MCG 14 PUFFS/INHALER INH SCH (08:08)
[2022-12-22] MEDS: CARBIDOPA/LEVODOPA 25/100MG TAB PO SCH ×3 (08:08→20:52)
[2022-12-22] MEDS: UMECLIDINIUM/VILANTEROL 62.5/25MCG 7 PUFFS/INHALER INH SCH (08:08)
[2022-12-22] MEDS: POLYETHYLENE (MIRALAX) 17 GM PACK PO SCH ×2 (08:09→20:52)
[2022-12-22] MEDS: TOPIRAMATE 100 MG TAB PO SCH ×2 (08:09→20:52)
[2022-12-22] MEDS: levETIRAcetam 500 MG TAB PO SCH ×2 (08:09→20:53)
[2022-12-22] MEDS: FERROUS SULFATE 325 MG TAB PO SCH (08:09)
[2022-12-22] MEDS: GABAPENTIN 600 MG TAB PO SCH (08:10)
[2022-12-22] MEDS: predniSONE 5 MG TAB PO SCH (08:10)
[2022-12-22] MEDS: MAGNESIUM OXIDE 400 MG TAB PO SCH (08:10)
[2022-12-22] MEDS: PANTOprazole 40 MG TAB PO SCH (08:10)
[2022-12-22] MEDS: INSULIN ASPART PER UNIT CHARGE SC SCH ×4 (08:11→20:53)
[2022-12-22] MEDS: FUROSEMIDE 20 MG TAB PO SCH (08:11)
[2022-12-22] MEDS: LANTUS PER UNIT CHARGE SC SCH ×2 (08:17→20:53)
[2022-12-22 08:19] LABS: Basophils # (auto) 0.03 K/uL (0.00-0.20); Basophils % (auto) 0.5 %; Eosinophils # (auto) 0.18 K/uL (0.00-0.50); Eosinophils % (auto) 3.2 %; Hematocrit (blood only) 32.7 % (42.0-52.0); Hemoglobin 10.1 g/dl (14.0-18.0); Immature Granulocytes # (auto) 0.03 K/uL (0.01-0.20); Immature Granulocytes % (auto) 0.5 %; Lymphocytes # (auto) 1.08 K/uL (1.20-3.40); Lymphocytes % (auto) 19.3 %; Mean Corpuscular Hemoglobin 26.8 pg (25.0-34.0); Mean Corpuscular Hgb Conc 30.9 g/dL (32.0-36.0); Mean Corpuscular Volume 86.7 fL (80.0-100.0); Mean Platelet Volume 10.4 fL (9.4-12.4); Monocytes # (auto) 0.21 K/uL (0.11-0.59); Monocytes % (auto) 3.8 %; Neutrophils # (auto) 4.06 K/uL (1.40-6.50); Neutrophils % (auto) 72.7 %; Platelet Count 125 K/uL (130-400); RDW Coefficient of Variation 15.7 % (11.5-14.5); RDW Standard Deviation 49.5 fL (36.4-46.3); Red Blood Count 3.77 M/uL (4.70-6.10); White Blood Count 5.59 K/ul (4.8-10.8)
[2022-12-22 08:21] LABS: INR 1.8 (0.9-1.1); Prothrombin Time 19.1 Seconds (9.0-12.0)
[2022-12-22 08:36] LABS: BUN Creatinine Ratio 20.5 (10-20); Calcium 8.7 mg/dl (8.6-10.3); Est GFR (African American) 62.7 ml/min; Est GFR (Non-African American) 54.1 ml/min; Magnesium 2.2 mg/dl (1.7-2.4); Potassium 3.8 mmol/L (3.5-5.1)
[2022-12-22] MEDS ORDERED: WARFARIN SOD 2.5 MG TAB PO ONE (10:58)
[2022-12-22] MEDS: WARFARIN SOD 7.5 MG TAB PO SCH (16:56)
[2022-12-22] MEDS: POTASSIUM CHLORIDE CRTAB 20 MEQ TABCR PO SCH (20:52)
[2022-12-22] MEDS: ATORVASTATIN 40 MG TAB PO SCH (20:52)
[2022-12-22] MEDS: GABAPENTIN 300 MG CAP PO SCH (20:52)
[2022-12-22] MEDS: allopurinoL 100 MG TAB PO SCH (20:52)
[2022-12-23] MEDS: traMADol HCL 50 MG TABLET PO PRN ×2 (02:17→21:36)
[2022-12-23 06:32] LABS: Hemoglobin 10.2 g/dl (14.0-18.0); Mean Corpuscular Hemoglobin 27.4 pg (25.0-34.0); Mean Corpuscular Hgb Conc 31.9 g/dL (32.0-36.0); Mean Platelet Volume 10.2 fL (9.4-12.4); Platelet Count 118 K/uL (130-400); RDW Coefficient of Variation 15.9 % (11.5-14.5); RDW Standard Deviation 49.4 fL (36.4-46.3); Red Blood Count 3.72 M/uL (4.70-6.10); White Blood Count 4.62 K/ul (4.8-10.8)
[2022-12-23 06:59] LABS: Albumin Globulin Ratio 1.6 (0.9-2); Albumin Level 3.5 gm/dl (3.4-5.0); Bilirubin,Total 0.4 mg/dl (0.2-1.0); Calcium 8.7 mg/dl (8.6-10.3); Creatinine Clr Calc Pharmacy 63.3 ml/min; Est GFR (African American) 66.5 ml/min; Est GFR (Non-African American) 57.4 ml/min; Globulin 2.2 gm/dl (2.5-4.0); Total Protein 5.7 gm/dl (6.0-8.3)
[2022-12-23 07:12] LABS: INR 1.8 (0.9-1.1)
--- NOTE | 2022-12-23 08:02 | Hospitalist Progress Note ---
Date of Service December 23, 2022 Assessment & Plan (1) Observed seizure-like activity: Plan: Xavi is a 77 y/o male with a past medical history of seizure-like activity, parkinsonism, CKD 3, mechanical heart valve on Coumadin (Goal INR 2.53.5), DM2, RA/polymyositis on daily prednisone 5 mg, CAD, interstitial lung disease, and anxiety who presented to the [facility] ED via EMS on 12/19 from his PCP's office due to tachycardia and AMS now clinically stable for discharge. #Psychogenic nonepileptic seizure Received IV doses of Lorazepam and Keppra on admission. Currently on Keppra and Topamax outpatient.Keppra level 58.[address] head and MRI of the brain negative Neurology consulted, states that these episodes represent psychogenic nonepileptic attacks.No further neurological work-up recommended. Continue current AED regimen. #Headache #Postconcussional syndrome Patient with continued left sided frontal GONZALEZ since his fall precipitating his pr evious admission. Likely postconcussive residual headache. CT Head negative x3. PRN Tylenol, Tramadol, Diclofenac topical PT/OT recommend inpatient rehab, placement pending. #Generalized weakness DDx deconditioning vs infectious vs trauma vs metabolic derangement. CT Head negative. MRI negative. Cortisol level normal. No obvious source of infection. Likely deconditioning. Patient is chronically ill and was recommended for rehab on last admission but was discharged home as he was only interested in going to the [facility] but there were no open beds. After further discussions, the patient would be interested in rehab placement on discharge to improve his strength PT/OT consults as above, placement pending. #Acute kidney injury-resolved Patient with a slight bump to his creatinine on 12/21. Resolved with IV fluids. #Anxiety and depression Patient was started on TID Buspar on last admission, is not currently taking at this time. Consider resuming on discharge #Mechanical heart valve present Continue Warfarin with goal INR of 2.5-3.5. INR continues to be subtherapeutic at 1.8. Given an extra 2.5 mg on 12/22. Will give another 2.5 mg 12/23 and recheck level. Current schedule: 7.5mg SuMoWeFrSa, 5mg TuTh - may need adjusting on an outpatient basis #Diabetes Patient's home regimen held on admission. We will continue on his home Lantus 20 units twice daily Continue BSG checks, sliding-scale insulin, hypoglycemic protocol #Parkinsonism Continue Carbidopa-Levodopa #Polymyositis Continue daily prednisone 5 mg. #Knee pain Knee pain chronic issue. We will give Voltaren gel as needed. MRSA swab- positive, no need for abx at this time, on contact precautions FENGI: Carb consistent, heart healthy.Should be mixed and moist as well, extensive discussion had with patient and family. They understand the risk of aspiration and would like to remove the mix to moist part of the diet. Code status: Full code DVT ppx: On warfarin Consults: Neurology PT/OT: yes - rec rehab Case management: yes, pending placement at this time. Dispo: PCU (2) Headache: (3) Generalized weakness: (4) Depression: (5) Anemia: (6) Mechanical heart valve present: (7) Anxiety: (8) CAD (coronary artery disease): (9) Diabetes: (10) Interstitial lung disease due to connective tissue disease: (11) Parkinsonism: (12) Polymyositis: (13) Knee pain: (14) Psychogenic nonepileptic seizure: (15) SHYANN (acute kidney injury): Admission and Anticipated Discharge Date Admission Date: December 20, 2022 Supervising Physician Co-Signing Physician Notes Resident Physician Supervision Note: I independently interviewed and examined the patient and verified the peña history and physical, reviewed labs and image studies and agree with resident findings and care plan. Subjective Seen at bedside this AM. No issues. No f/c/SOB/CP/abdominal pain. Continued headache that he has had since his fall. Wondering about dispo planning. Review of Systems Review of Systems: See HPI Physical Exam Physical Exam: Constitutional: well-appearing, no acute distress HEENT: NCAT, no conjunctival injection CV: clinically well perfused, no LE edema Resp: no increased work of breathing GI: nondistended MSK: no gross deformities appreciated Skin: warm, dry, no rash appreciated Neuro: alert, oriented, no focal neurologic deficit appreciated Results & Data Results & Data Vital Signs (Past 12 Hours) Vital Signs Temp Pulse Pulse Resp BP Pulse Ox O2 Del Method 12/23/22 07:35 70 12/23/22 03:15 36.4 C L 59 L 18 102/57 L 97 Room Air 12/22/22 23:00 67 12/22/22 23:18 37.0 C 70 18 123/62 97 Room Air Laboratory Results 12/23/22 05:59 12/23/22 05:59 Resident Activity Tracking Resident Involvement: Resident Care Provided Care Provided: Adult [facility] Medicine (2) Headache Headache chronicity pattern: chronic headache Headache type: unspecified Intractability: not intractable Qualified Code(s): R51.9 - Headache, unspecified; G89.29 - Other chronic pain (5) Anemia Anemia type: unspecified type Qualified Code(s): D64.9 - Anemia, unspecified (8) CAD (coronary artery disease) Associated angina: without angina Coronary Disease-Associated Artery/Lesion type: [place] artery [place] vs. transplanted heart: [place] heart Qualified Code(s): I25.10 - Atherosclerotic heart disease of [place] coronary artery without angina pectoris (9) Diabetes Diabetes mellitus complication detail: with polyneuropathy Diabetes mellitus complication status: with neurologic complications Diabetes mellitus superintendent container terminal insulin use: with superintendent container terminal use Diabetes mellitus type: type 2 Qualified Code(s): E11.42 - Type 2 diabetes mellitus with diabetic polyneuropathy; Z79.4 - long-term (current) use of insulin
[2022-12-23] MEDS: INSULIN ASPART PER UNIT CHARGE SC SCH ×4 (09:21→21:37)
[2022-12-23] MEDS: LANTUS PER UNIT CHARGE SC SCH ×2 (09:21→21:36)
[2022-12-23] MEDS: FERROUS SULFATE 325 MG TAB PO SCH (09:22)
[2022-12-23] MEDS: CARBIDOPA/LEVODOPA 25/100MG TAB PO SCH ×3 (09:22→21:38)
[2022-12-23] MEDS: levETIRAcetam 500 MG TAB PO SCH ×2 (09:23→21:38)
[2022-12-23] MEDS: FUROSEMIDE 20 MG TAB PO SCH (09:23)
[2022-12-23] MEDS: GABAPENTIN 600 MG TAB PO SCH (09:23)
[2022-12-23] MEDS: PANTOprazole 40 MG TAB PO SCH (09:24)
[2022-12-23] MEDS: predniSONE 5 MG TAB PO SCH (09:24)
[2022-12-23] MEDS: MAGNESIUM OXIDE 400 MG TAB PO SCH (09:24)
[2022-12-23] MEDS: FLUTICASONE FUROATE 100MCG 14 PUFFS/INHALER INH SCH (09:25)
[2022-12-23] MEDS: TOPIRAMATE 100 MG TAB PO SCH ×2 (09:25→21:38)
[2022-12-23] MEDS: POLYETHYLENE (MIRALAX) 17 GM PACK PO SCH ×2 (09:25→21:30)
[2022-12-23] MEDS: UMECLIDINIUM/VILANTEROL 62.5/25MCG 7 PUFFS/INHALER INH SCH (09:26)
[2022-12-23] MEDS: DICLOFENAC SOD 1% GEL 100 GM TUBE EXT PRN (09:37)
[2022-12-23] MEDS: WARFARIN SOD 7.5 MG TAB PO SCH (15:55)
[2022-12-23] MEDS ORDERED: WARFARIN SOD 2.5 MG TAB PO ONE (16:00)
[2022-12-23] MEDS: GABAPENTIN 300 MG CAP PO SCH (21:38)
[2022-12-23] MEDS: POTASSIUM CHLORIDE CRTAB 20 MEQ TABCR PO SCH (21:38)
[2022-12-23] MEDS: allopurinoL 100 MG TAB PO SCH (21:38)
[2022-12-23] MEDS: ATORVASTATIN 40 MG TAB PO SCH (21:38)
--- NOTE | 2022-12-24 07:12 | Hospitalist Progress Note ---
Date of Service December 24, 2022 Assessment & Plan (1) Observed seizure-like activity: Plan: Xavi is a 77 y/o male with a PMHx of non-epileptic seizures, parkinsonism, CKD 3, mechanical heart valve on Coumadin (Goal INR 2.53.5), DM2, RA/polymyositis on daily prednisone 5 mg, CAD, interstitial lung disease, and anxiety who presented to the [facility] ED via EMS on 12/19 from his PCP's office due to tachycardia and AMS now clinically stable for discharge awaiting placement. #Dispo Planning Patient would benefit from intensive rehab as he is significantly deconditioned and chronically ill. Patient is not safe to go home alone at this time. PT/OT recommend inpatient rehab. His insurance has denied inpatient rehab at [facility]. on board and will look into other options including SNF and home health. #Psychogenic nonepileptic seizure Received IV doses of Lorazepam and Keppra on admission. Currently on Keppra and Topamax outpatient.Keppra level 58.[address] head and MRI of the brain negative Neurology consulted, states that these episodes represent psychogenic nonepileptic attacks.No further neurological work-up recommended. Continue current AED regimen. #Headache #Postconcussive syndrome Patient with continued left sided frontal GONZALEZ since his fall precipitating his previous admission. Likely postconcussive residual headache. CT Head negative x3. PRN Tylenol, Tramadol, Diclofenac topical PT/OT recommend inpatient rehab, placement pending. #Generalized weakness DDx deconditioning vs infectious vs trauma vs metabolic derangement. CT Head negative. MRI negative. Cortisol level normal. No obvious source of infection. Likely deconditioning. #Mechanical heart valve present Continue Warfarin with goal INR of 2.5-3.5. INR subtherapeutic was given an extra 2.5 mg on 12/22 and 12/23. INR getting closer to goal at 2.3. Current schedule: 7.5mg SuMoWeFrSa, 5mg TuTh - may need adjusting on an outpatient basis #Diabetes Patient 20U Lantus BID in addition to Trulicity at home. Hold Trulicity for now. Continue home insulin and add on SSI. Resume Trulicity on discharge. #Anxiety and depression Patient was started on TID Buspar on last admission, is not currently taking at this time. Consider resuming on discharge #Parkinsonism Continue Carbidopa-Levodopa #Polymyositis Continue daily prednisone 5 mg. FENGI: Carb consistent, heart healthy.Should be mixed and moist as well, extensive discussion had with patient and family. They understand the risk of aspiration and would like to remove the mix to moist part of the diet. Code status: Full code DVT ppx: On warfarin Consults: Neurology Dispo: PCU Precautions: Contact - MRSA nares positive (2) Headache: (3) Generalized weakness: (4) Depression: (5) Anemia: (6) Mechanical heart valve present: (7) Anxiety: (8) CAD (coronary artery disease): (9) Diabetes: (10) Interstitial lung disease due to connective tissue disease: (11) Parkinsonism: (12) Polymyositis: (13) Knee pain: (14) Psychogenic nonepileptic seizure: (15) SHYANN (acute kidney injury): Admission and Anticipated Discharge Date Admission Date: December 20, 2022 Supervising Physician Co-Signing Physician Notes Resident Physician Supervision Note: I independently interviewed and examined the patient and verified the peña history and physical, reviewed labs and image studies and agree with resident findings and care plan. Subjective Seen at bedside this AM. No issues. Continued headache that he has had since his fall. Wondering about dispo planning. Review of Systems Review of Systems: See HPI Physical Exam Physical Exam: Constitutional: well-appearing, no acute distress HEENT: NCAT, no conjunctival injection CV: clinically well perfused, no LE edema Resp: no increased work of breathing GI: nondistended MSK: no gross deformities appreciated Skin: warm, dry, no rash appreciated Neuro: alert, oriented, no focal neurologic deficit appreciated Results & Data Results & Data Vital Signs (Past 12 Hours) Vital Signs Temp Pulse Pulse Resp BP Pulse Ox O2 Del Method 12/24/22 07:03 69 12/24/22 03:00 36.8 C 55 L 12 108/63 95 Nasal Cannula 12/23/22 22:51 37.1 C 91 H 18 130/72 96 Nasal Cannula O2 Flow Rate 12/24/22 07:03 12/24/22 03:00 2 12/23/22 22:51 2 Laboratory Results INR 2.3 Resident Activity Tracking Resident Involvement: Resident Care Provided Care Provided: Adult Hospital Medicine (2) Headache Headache chronicity pattern: chronic headache Headache type: unspecified Intractability: not intractable Qualified Code(s): R51.9 - Headache, unspecified; G89.29 - Other chronic pain (5) Anemia Anemia type: unspecified type Qualified Code(s): D64.9 - Anemia, unspecified (8) CAD (coronary artery disease) Associated angina: without angina Coronary Disease-Associated Artery/Lesion type: [place] artery [place] vs. transplanted heart: [place] heart Qualified Code(s): I25.10 - Atherosclerotic heart disease of [place] coronary artery without angina pectoris (9) Diabetes Diabetes mellitus complication detail: with polyneuropathy Diabetes mellitus complication status: with neurologic complications Diabetes mellitus snf insulin use: with snf use Diabetes mellitus type: type 2 Qualified Code(s): E11.42 - Type 2 diabetes mellitus with diabetic polyneuropathy; Z79.4 - alf (current) use of insulin
[2022-12-24] MEDS: INSULIN ASPART PER UNIT CHARGE SC SCH ×4 (07:51→21:01)
[2022-12-24 08:19] LABS: Hemoglobin 10.8 g/dl (14.0-18.0); Mean Corpuscular Hemoglobin 27.3 pg (25.0-34.0); Mean Corpuscular Hgb Conc 31.8 g/dL (32.0-36.0); Mean Corpuscular Volume 86.1 fL (80.0-100.0); Mean Platelet Volume 10.4 fL (9.4-12.4); Platelet Count 136 K/uL (130-400); RDW Coefficient of Variation 15.7 % (11.5-14.5); RDW Standard Deviation 49.2 fL (36.4-46.3); Red Blood Count 3.95 M/uL (4.70-6.10); White Blood Count 4.39 K/ul (4.8-10.8)
[2022-12-24 08:26] LABS: INR 2.3 (0.9-1.1); Prothrombin Time 23.7 Seconds (9.0-12.0)
[2022-12-24 08:38] LABS: BUN Creatinine Ratio 21.4 (10-20); Calcium 9.3 mg/dl (8.6-10.3); Creatinine Clr Calc Pharmacy 64.7 ml/min; Est GFR (African American) 69.3 ml/min; Est GFR (Non-African American) 59.8 ml/min
[2022-12-24] MEDS: LANTUS PER UNIT CHARGE SC SCH ×2 (08:47→21:02)
[2022-12-24] MEDS: CARBIDOPA/LEVODOPA 25/100MG TAB PO SCH ×3 (08:47→21:01)
[2022-12-24] MEDS: UMECLIDINIUM/VILANTEROL 62.5/25MCG 7 PUFFS/INHALER INH SCH (08:48)
[2022-12-24] MEDS: FLUTICASONE FUROATE 100MCG 14 PUFFS/INHALER INH SCH (08:48)
[2022-12-24] MEDS: FERROUS SULFATE 325 MG TAB PO SCH (08:48)
[2022-12-24] MEDS: DICLOFENAC SOD 1% GEL 100 GM TUBE EXT PRN (08:49)
[2022-12-24] MEDS: POLYETHYLENE (MIRALAX) 17 GM PACK PO SCH ×2 (08:50→21:01)
[2022-12-24] MEDS: PANTOprazole 40 MG TAB PO SCH (08:50)
[2022-12-24] MEDS: FUROSEMIDE 20 MG TAB PO SCH (08:50)
[2022-12-24] MEDS: levETIRAcetam 500 MG TAB PO SCH ×2 (08:50→21:01)
[2022-12-24] MEDS: MAGNESIUM OXIDE 400 MG TAB PO SCH (08:50)
[2022-12-24] MEDS: predniSONE 5 MG TAB PO SCH (08:50)
[2022-12-24] MEDS: TOPIRAMATE 100 MG TAB PO SCH ×2 (08:50→21:01)
[2022-12-24] MEDS: GABAPENTIN 600 MG TAB PO SCH (08:51)
[2022-12-24] MEDS: WARFARIN SOD 7.5 MG TAB PO SCH (15:13)
[2022-12-24] MEDS: ATORVASTATIN 40 MG TAB PO SCH (21:01)
[2022-12-24] MEDS: POTASSIUM CHLORIDE CRTAB 20 MEQ TABCR PO SCH (21:01)
[2022-12-24] MEDS: GABAPENTIN 300 MG CAP PO SCH (21:01)
[2022-12-24] MEDS: allopurinoL 100 MG TAB PO SCH (21:01)
[2022-12-24] MEDS: MAGNESIUM HYDROXIDE SUSP 30 ML UDC PO PRN (21:01)
[2022-12-25] MEDS: ACETAMINOPHEN 500 MG TAB PO PRN ×2 (03:25→11:53)
[2022-12-25 06:30] LABS: Hematocrit (blood only) 32.8 % (42.0-52.0); Hemoglobin 10.4 g/dl (14.0-18.0); Mean Corpuscular Hemoglobin 27.1 pg (25.0-34.0); Mean Corpuscular Hgb Conc 31.7 g/dL (32.0-36.0); Mean Corpuscular Volume 85.4 fL (80.0-100.0); Mean Platelet Volume 10.6 fL (9.4-12.4); Platelet Count 128 K/uL (130-400); RDW Coefficient of Variation 15.7 % (11.5-14.5); RDW Standard Deviation 48.3 fL (36.4-46.3); Red Blood Count 3.84 M/uL (4.70-6.10); White Blood Count 3.94 K/ul (4.8-10.8)
[2022-12-25 06:31] LABS: INR 2.7 (0.9-1.1)
[2022-12-25 06:54] LABS: BUN Creatinine Ratio 21.8 (10-20); Calcium 9.1 mg/dl (8.6-10.3); Creatinine Clr Calc Pharmacy 60.9 ml/min; Est GFR (African American) 64.6 ml/min; Est GFR (Non-African American) 55.7 ml/min; Potassium 3.9 mmol/L (3.5-5.1)
--- NOTE | 2022-12-25 07:13 | Hospitalist Progress Note ---
Date of Service December 25, 2022 Assessment & Plan (1) Observed seizure-like activity: Plan: Xavi is a 77 y/o male with a PMHx of non-epileptic seizures, parkinsonism, CKD 3, mechanical heart valve on Coumadin (Goal INR 2.53.5), DM2, RA/polymyositis on daily prednisone 5 mg, CAD, interstitial lung disease, and anxiety who presented to the [facility] ED via EMS on 12/19 from his PCP's office due to tachycardia and AMS now clinically stable for discharge awaiting placement. #Dispo Planning Patient would benefit from intensive rehab as he is significantly deconditioned and chronically ill. Patient is not safe to go home alone at this time. PT/OT recommend inpatient rehab. His insurance has denied inpatient rehab at [facility]. on board and will look into other options including SNF and home health. #Psychogenic nonepileptic seizure Received IV doses of Lorazepam and Keppra on admission. Currently on Keppra and Topamax outpatient.Keppra level 58.[address] head and MRI of the brain negative Neurology consulted, states that these episodes represent psychogenic nonepileptic attacks.No further neurological work-up recommended. Continue current AED regimen. #Headache #Postconcussive syndrome Patient with continued left sided frontal GONZALEZ since his fall precipitating his previous admission. Likely postconcussive residual headache. CT Head negative x3. PRN Tylenol, Tramadol, Diclofenac topical PT/OT recommend inpatient rehab, placement pending. #Generalized weakness DDx deconditioning vs infectious vs trauma vs metabolic derangement. CT Head negative. MRI negative. Cortisol level normal. No obvious source of infection. Likely deconditioning. #Mechanical heart valve present Continue Warfarin with goal INR of 2.5-3.5. INR subtherapeutic was given an extra 2.5 mg on 12/22 and 12/23. INR getting closer to goal at 2.3. Current schedule: 7.5mg SuMoWeFrSa, 5mg TuTh - may need adjusting on an outpatient basis #Diabetes Patient 20U Lantus BID in addition to Trulicity at home. Hold Trulicity for now. Continue home insulin and add on SSI. Resume Trulicity on discharge. #Anxiety and depression Patient was started on TID Buspar on last admission, is not currently taking at this time. Consider resuming on discharge #Parkinsonism Continue Carbidopa-Levodopa #Polymyositis Continue daily prednisone 5 mg. FENGI: Carb consistent, heart healthy.Should be mixed and moist as well, extensive discussion had with patient and family. They understand the risk of aspiration and would like to remove the mix to moist part of the diet. Code status: Full code DVT ppx: On warfarin Consults: Neurology Dispo: PCU Precautions: Contact - MRSA nares positive (2) Headache: (3) Generalized weakness: (4) Depression: (5) Anemia: (6) Mechanical heart valve present: (7) Anxiety: (8) CAD (coronary artery disease): (9) Diabetes: (10) Interstitial lung disease due to connective tissue disease: (11) Parkinsonism: (12) Polymyositis: (13) Knee pain: (14) Psychogenic nonepileptic seizure: (15) SHYANN (acute kidney injury): Admission and Anticipated Discharge Date Admission Date: December 20, 2022 Review of Systems Review of Systems: As per above Results & Data Results & Data Vital Signs (Past 12 Hours) Vital Signs Temp Pulse Pulse Resp BP Pulse Ox O2 Del Method 12/25/22 06:56 60 12/25/22 03:17 36.4 C L 63 18 119/72 95 Nasal Cannula 12/24/22 23:40 67 12/24/22 23:29 36.4 C L 69 16 154/81 H 100 Nasal Cannula 12/24/22 19:27 36.7 C 56 L 18 116/66 95 Room Air O2 Flow Rate 12/25/22 06:56 12/25/22 03:17 2 12/24/22 23:40 12/24/22 23:29 2 12/24/22 19:27 Resident Activity Tracking Resident Involvement: Resident Care Provided Care Provided: Adult Hospital Medicine (2) Headache Headache chronicity pattern: chronic headache Headache type: unspecified Intractability: not intractable Qualified Code(s): R51.9 - Headache, unspecified; G89.29 - Other chronic pain (5) Anemia Anemia type: unspecified type Qualified Code(s): D64.9 - Anemia, unspecified (8) CAD (coronary artery disease) Coronary Disease-Associated Artery/Lesion type: [place] artery [place] vs. transplanted heart: [place] heart Associated angina: without angina Qualified Code(s): I25.10 - Atherosclerotic heart disease of [place] coronary artery without angina pectoris (9) Diabetes Diabetes mellitus type: type 2 Diabetes mellitus assisted insulin use: with terminal supervisor use Diabetes mellitus complication status: with neurologic compl ications Diabetes mellitus complication detail: with polyneuropathy Qualified Code(s): E11.42 - Type 2 diabetes mellitus with diabetic polyneuropathy; Z79.4 - [facility] (current) use of insulin
[2022-12-25] MEDS: TOPIRAMATE 100 MG TAB PO SCH (08:53)
[2022-12-25] MEDS: GABAPENTIN 600 MG TAB PO SCH (08:53)
[2022-12-25] MEDS: CARBIDOPA/LEVODOPA 25/100MG TAB PO SCH ×2 (08:53→14:18)
[2022-12-25] MEDS: PANTOprazole 40 MG TAB PO SCH (08:54)
[2022-12-25] MEDS: levETIRAcetam 500 MG TAB PO SCH (08:54)
[2022-12-25] MEDS: MAGNESIUM OXIDE 400 MG TAB PO SCH (08:54)
[2022-12-25] MEDS: predniSONE 5 MG TAB PO SCH (08:55)
[2022-12-25] MEDS: FUROSEMIDE 20 MG TAB PO SCH (08:55)
[2022-12-25] MEDS: POLYETHYLENE (MIRALAX) 17 GM PACK PO SCH (08:56)
[2022-12-25] MEDS: UMECLIDINIUM/VILANTEROL 62.5/25MCG 7 PUFFS/INHALER INH SCH (08:56)
[2022-12-25] MEDS: FLUTICASONE FUROATE 100MCG 14 PUFFS/INHALER INH SCH (08:56)
[2022-12-25] MEDS: FERROUS SULFATE 325 MG TAB PO SCH (08:57)
[2022-12-25] MEDS: LANTUS PER UNIT CHARGE SC SCH (09:02)
[2022-12-25] MEDS: INSULIN ASPART PER UNIT CHARGE SC SCH ×2 (09:39→11:52)
--- NOTE | 2022-12-25 14:19 | Discharge Summary ---
Date of Service December 25, 2022 Admission HPI Per Admitting Provider Xavi is a 77-year-old male with a past medical history of seizure-like activity, parkinsonism, CKD 3, mechanical heart valve on Coumadin. Goal INR 2.53.5, DM2, RA/polymyositis on daily prednisone, CAD who presented emergency department after a fall and who experienced seizure-like activity after arrival. Per ER: initially concerned about seizure like activity. 1x possible seizure, RUE, non responsive during initial event --> got keppra, 1mg ativan then pt improved shortly after. Seemed confused/post-ictal afterwards. Second event which again responded well to ativan 1mg after. Had declined referral to [facility]/EMU. Pt presented as he was using the restroom at home, and then woke up on the floor and didn't remember falling off the toilet. Discharge home was discussed with pt, had a 3rd possible event with ?partial consciousness and was recommended for observation. Pt reports episodes happen when cold and under stress. Per Pt: Tired, somnolent Awaiting injection of gel into his left knee for knee replacement. Endorses chronic L knee pain, denies hip pain. Denies back pain. had R SI joint surgery Denies chest pain, chest pressure, shortness of breath at assessment. Notes his oxygen was a little low 90s at home, but has been normal here. Denies SoB/cough, thinks maybe a little short of breath earlier in the week. He feels he did aspirate earlier this week which happens intermittently due to his Denies lightheadedness, dizziness. Endorses fatigue Reports he hasn't had seizures 'at least for 20 minutes'. He reports he hasn't had any at all in the past few weeks. Denies recent change in symptoms. No fevers, chills, sweats, abdominal pain. Was using the bathroom and then woke up on the floor and called EMS. Denies bowel or bladder incontinence. Reprots he had an EEG which had not correlated with seizures in the past. Was recommended to followup with an epilepsy clinic, but has not followed up with this yet. He feels his seizures are brought on by being cold and notes he has been more cold with some flickering lights at home. Tired, shakey, sleep at time of assessment. Principal Diagnosis Psychogenic nonepileptic seizure Discharge Exam Constitutional: well-appearing, no acute distress HEENT: NCAT, no conjunctival injection CV: well perfused Resp: no increased work of breathing MSK: no gross deformities appreciated Skin: warm, dry, no rash appreciated Neuro: alert, oriented, no focal neurologic deficit appreciated Discharge Data Allergies Allergy/AdvReac Type Severity Reaction Status Date / Time bee venom protein (honey bee) Allergy Severe anaphylaxis Verified 12/09/22 17:08 Iodinated Contrast Media Allergy Severe Anaphylaxis Verified 12/09/22 17:08 shellfish derived Allergy Severe Anaphylaxis Verified 12/09/22 17:08 doxazosin Allergy Intermediate Rash Verified 12/09/22 17:08 tamsulosin [From Flomax] Allergy Intermediate Itching Verified 12/09/22 17:08 Tetanus Vaccines and Toxoid Allergy Unknown Unknown Verified 12/09/22 17:08 lamotrigine AdvReac Intermediate Confusion Verified 12/09/22 17:08 oxycodone [From Percocet] AdvReac Intermediate nausea/vomi Verified 12/09/22 17:08 ting propoxyphene [From Darvon] AdvReac Intermediate nausea/vomi Verified 12/09/22 17:08 ting Consultations 12/19/22 12:14 ED Decision to Admit Stat 12/19/22 20:48 Consult Neurology Routine Ordered Studies 12/19/22 10:30 CT head/brain wo con Stat 12/19/22 13:13 MRI Brain [MR brain seizure wo/w con] Stat Hospital Course (1) Observed seizure-like activity: Xavi is a 77 y/o male with a PMHx of non-epileptic seizures, parkinsonism, CKD 3, mechanical heart valve on Coumadin (Goal INR 2.53.5), DM2, RA/polymyositis on daily prednisone 5 mg, CAD, interstitial lung disease, and anxiety who presented to the [facility] ED via EMS on 12/19 from his PCP's office due to tachycardia and AMS now clinically stable for discharge awaiting placement. #Dispo Planning Patient would benefit from intensive rehab as he is significantly deconditioned and chronically ill. PT/OT recommend inpatient rehab. His insurance has denied inpatient rehab at [facility]- peer to peer completed and lost. Plan for home with home PT. #Psychogenic nonepileptic seizure Received IV doses of Lorazepam and Keppra on admission. Currently on Keppra and Topamax outpatient.Keppra level 58.[address] head and MRI of the brain negative Neurology consulted, states that these episodes represent psychogenic nonepileptic attacks.No further neurological work-up recommended. Continue current AED regimen. Instructed not to drive at this time. #Headache #Postconcussive syndrome Patient with continued left sided frontal GONZALEZ since his fall precipitating his previous admission. Likely postconcussive residual headache. CT Head negative x3. PRN Tylenol, Tramadol, Diclofenac topical #Generalized weakness DDx deconditioning vs infectious vs trauma vs metabolic derangement. CT Head negative. MRI negative. Cortisol level normal. No obvious source of infection. Likely deconditioning. Home PT #Mechanical heart valve present Continue Warfarin with goal INR of 2.5-3.5. INR 2.7 on d/c. Continue with OP monitoring. Current schedule:7.5mg SuMoWeFrSa, 5mg TuTh - may need adjusting on an outpatient basis #Diabetes Patient 20U Lantus BID, with SSI at meals in addition to Trulicity at home. Sugars well controlled at home per patient, will resume regimen. #Anxiety and depression Patient was started on TID Buspar on last admission, is not currently taking at this time. Consider resuming as an OP. #Parkinsonism Continue Carbidopa-Levodopa #Polymyositis Continue daily prednisone 5 mg. (2) Headache: (3) Generalized weakness: (4) Depression: (5) Anemia: (6) Mechanical heart valve present: (7) Anxiety: (8) CAD (coronary artery disease): (9) Diabetes: (10) Interstitial lung disease due to connective tissue disease: (11) Parkinsonism: (12) Polymyositis: (13) Knee pain: (14) Psychogenic nonepileptic seizure: (15) SHYANN (acute kidney injury): Total Time Total Time Spent Total Time Spent (In Minutes): <30 Discharge Plan Discharge Items Patient Disposition: Home - Home Health Services Reason For Visit: GENERALIZED WEAKNESS, HEADACHE Discharge Diagnosis: Psychogenic nonepileptic seizure Activity: Per Instructions section Non-emergency contact: Primary Care Provider Call non-emergency contact if: you have any medication questions and your symptoms worsen Follow-up/Referrals: Alesha Smith DO [Resident] - 01/02/23 7:45 am Diet: Regular Addtl Attending Provider Instructions: Are were admitted with concern for seizures. After imaging and consultation with neurology we do not believe that these episodes represent true seizure activity. We tried to get a rehab stay approved, but unfortunately it was denied by insurance so we will set up home PT for you. YOU SHOULD NOT DRIVE. You should not drive because at present time it is not safe. You should wait to drive again until at least when you follow up with your primary care doctor and discuss it with them. We did not make any changes to your medications. You should follow-up with your primary care doctor and with the anticoagulation clinic for monitoring with your warfarin. Pending Studies at Discharge: No Stand-Alone Forms: My [facility] Vaccines, Smoking Cessation Medications and DC Order Prescriptions: Continued Trelegy Ellipta 100-62.5-25 mcg blister with device 1 inh inhalation QAM Qty: 60 5RF levetiracetam [Keppra] 500 mg tablet 1,000 mg PO BID Qty: 360 3RF carbidopa-levodopa [Sinemet] 25-100 mg tablet 1 tab PO TID Qty: 270 2RF cholecalciferol (vitamin D3) [Vitamin D3] 50 mcg (2,000 unit) capsule 4,000 unit PO HS atorvastatin 40 mg tablet 40 mg PO HS fexofenadine [Karlee Allergy] 180 mg Tablet 180 mg PO QAM acetaminophen 325 mg Tablet 650 mg PO Q4H PRN (Reason: pain) Qty: 30 0RF Rx Instructions: OTC albuterol sulfate [Ventolin HFA] 90 mcg/actuation HFA aerosol inhaler 2 puff INHALATION Q4H PRN (Reason: Shortness Of Breath Or Wheezing) diclofenac sodium [Voltaren Arthritis Pain] 1 % Gel 2 g TOPICAL TID PRN (Reason: Pain) Rx Instructions: left knee ferrous sulfate 325 mg (65 mg iron) Tablet,Delayed Release (Dr/Ec) 325 mg PO QAM Qty: 30 0RF prednisone 5 mg Tablet 5 mg PO QAM gabapentin 300 mg capsule 600 mg PO QAM Rx Instructions: 600mg in am/300mg in pm pantoprazole [Protonix] 20 mg Tablet,Delayed Release (Dr/Ec) 20 mg PO QAM potassium chloride 20 mEq Tablet Extended Release 20 meq PO HS cyanocobalamin (vitamin B-12) [Vitamin B-12] 1,000 mcg Tablet Extended Release 1,000 mcg PO QAM magnesium 250 mg Tablet 250 mg PO QAM ondansetron 4 mg tablet,disintegrating 4 mg PO Q6H PRN (Reason: nausea and vomiting) Qty: 30 0RF Trulicity 1.5 mg/0.5 mL pen injector 1.5 mg SUBCUT WE Rx Instructions: Take sun tramadol 50 mg tablet 50 mg PO Q6H PRN (Reason: pain, moderate) Qty: 15 0RF warfarin 5 mg tablet 5 - 7.5 mg PO DIRECTED Qty: 30 0RF Rx Instructions: Take according to anticoagulation clinic. 5mg on Sunday/. 7.5mg on Sunday, Sunday, Sunday, Sunday, Sunday. allopurinol 100 mg tablet 100 mg PO HS insulin glargine [Lantus Solostar U-100 Insulin] 100 unit/mL (3 mL) insulin pen 20 unit SUBCUT BID polyethylene glycol 3350 [Miralax] 17 gram/dose powder 17 g PO BID furosemide 20 mg tablet 20 mg PO QAM sennosides [Senokot] 8.6 mg tablet 8.6 mg PO QAM insulin aspart U-100 [Novolog FlexPen U-100 Insulin] 100 unit/mL (3 mL) insulin pen 1 sliding scale dose subcut ACHS Rx Instructions: supplemental scale for meal-time coverage and bed-time coverage. calcium polycarbophil [Fiber (calcium polycarbophil)] 625 mg Tablet 625 mg PO QAM Qty: 30 0RF Rx Instructions: OTC gabapentin 300 mg capsule 300 mg PO HS topiramate 100 mg tablet 100 mg PO BID Saline Mist 0.65 % aerosol,spray 2 spray intranasal QID PRN (Reason: DRYNESS) lactulose 20 gram/30 mL solution 20 g PO PM PRN (Reason: Constipation) Discharge Orders: Discharge Order (Routine); Ordered 12/25/22 Ordered By: Stephani Sen/Other Patient Handouts: Falls Prevent Outside, Insulin and Type 2 Diabetes, With Diabetes, Beat the Heat Admission Data Admit Date/Time: 12/20/22 12:26 Attending Provider: Jose R Navas Admit Provider: Toni Goldsmith Primary Care Provider: Tan Hammond Other Providers: Toni Goldsmith ; [facility] Other Interventions: Discharge Summary Assessment (RN) Last Done: 12/25/22 12:50 Supervising Physician Co-Signing Physician Notes I personally examined the patient and verified all peña points of history and exam, discussed case, and agree with decision making with Dr Rosa rehab denied/peer to peer denied. for home, will try to prioritize safety but also try to do as much as he can to increase strength/mobility vitals noted nad heent nc at mmm breathing unlabored no accessory muscles good effort weakness - rehab would have been favorable, insurance denied. home, caution/safety, but also try to do as much as he can to increase strength otherwise as above
--- NOTE | 2022-12-25 17:48 | Billing Data ---
Date of Service December 25, 2022 Coding Level of Care Code 25744 IN/OBS DISCH 30 MIN/LESS
== END 2022-12-25 15:22 | disposition home health service (06) | DRG 880 ==
LOC: 2S 10:13 → ED 10:13 → SUATTDRO 13:12 → 2S 15:17 → SUATTDRO 12-20 12:26

== ENCOUNTER 2023-01-02 17:08 | Inpatient (IN) ==
[2023-01-02] MEDS ORDERED: SODIUM CHLORIDE 0.9% 500 ML IV ONE (17:19)
[2023-01-02] MEDS ORDERED: DEXTROSE 50% 50 ML SYRINGE IV ONE (17:20)
--- NOTE | 2023-01-02 17:24 | Emergency Department Note ---
Impression & Plan Syncope, Hypoglycemia, Chest pain ED Provider Note NAME: OSBALDO AGUILAR AGE: 77 SEX: M : 1945 ARRIVES VIA: Ambulance INFORMANT: Patient ED PROVIDER(S): Jose R Heller DO CHIEF COMPLAINT: syncope HPI: Patient is a 77-year-old male who presents ER following a syncopal episode. He notes he was walking to the kitchen does not remember anything after this and fell and woke up on the floor. He admits to headache. No neck pain or back pain. He does have some chest pain which been intermittent throughout the day. He had some earlier this morning and then some just prior to coming in. Does have some mild shortness of breath as well. No dysuria, urgency, or frequency. No other exacerbating or remitting factors. PAST MEDICAL HISTORY:See Below PAST SURGICAL HISTORY:See Below FAMILY HISTORY:See Below SOCIAL HISTORY:See Below HOME MEDICATIONS:See Below ALLERGIES:See Below VITALS:See Below PHYSICAL EXAMINATION: GENERAL: Sitting up in bed, alert, well appearing, well nourished, no distress, non-toxic HEAD: NC/AT EYE EXAM: normal conjunctiva. OROPHARYNX:mucous membranes are moist NECK: supple, no nuchal rigidity, no adenopathy, non-tender LUNGS: Clear to auscultation. Normal chest wall mechanics HEART: no murmurs, S1 normal and S2 normal ABDOMEN: abdomen soft, non-tender, normo-active bowel sounds, no masses, no rebound or guarding. BACK: Back is symmetrical on inspection and there is no deformity, no midline tenderness, no CVA tenderness. UPPER EXTREMITIES: upper extremities are grossly normal. LOWER EXTREMITIES: No pitting edema. NEURO EXAM: Normal sensorium, cranial nerves II-XII grossly intact, normal speech, no gross weakness of arms, no gross weakness of legs. MEDICAL DECISION MAKING: Patient is a 77-year-old male who presents ER for above-stated complaint. IV was established blood work was obtained. External records were reviewed. He was given IV fluids monitor closely while in the ER. He presents ER for chest pain and syncopal episode. Labs show no significant leukocytosis or anemia. INR at 2.7. BMP with mild hypokalemia at 3.4. Glucose was low at 51 and he was given half amp of D50. This trended up. He remained persistently in the 90s. LFTs bilirubin and lipase was unremarkable. Troponin was negative. COVID- negative. Portable AP upright 1 view of the chest shows no focal infiltrate. CT of the head and cervical spine was negative. Patient was updated bedside discussed with the hospitalist for further evaluation with the syncopal episode and having chest pain. Of note at 1 point he did not respond to any verbal stimuli and I did perform an sternal rub. He woke up immediately and was angry that we did this. At the same time when he was not responding he was having shaking of his bilateral arms. I do not believe this to be consistent with a seizure as he woke up immediately. Triage Nursing notes reviewed. Limited review of prior medical records performed Vital Signs: reviewed and remarkable for no significant abnormalities Differential diagnosis: Differential diagnosis includes etiologies such as vasovagal event, infection, hypoglycemia, electrolyte abnormalities, cardiac sources, intracerebral event, toxicologic, neurologic, as well as others were entertained. ER treatment provided: See below Diagnostics interpreted by me include EKG and cardiac monitoring as listed below: -Cardiac Monitoring: An order was placed for continuous cardiac monitoring. The monitor shows a rate of 90 with sinus rhythm. -ECG: Sinus rhythm rate of 75 Normal axis PVC QTc 469 -Laboratory studies:Interpreted by me as stated above in MDM and shown below. Imaging studies: Xrays: As interpreted by me: Portable AP upright 1 view of the chest shows no focal infiltrate CTs show: CT head and cervical spine was negative Consultation(s): As described in MDM Procedures:none Critical Care: None Past Med/Surg History Medical History (Updated 01/02/23 @ 23:37 by Jose R Heller DO) SHYANN (acute kidney injury) Anemia history of blood transfusion, 2020 Anxiety Aortic ectasia, thoracic Aspiration pneumonia hx of--per pt was due to pain medications Asthma inhaler daily and prn CAD (coronary artery disease) follows with Dr. 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 inhaler daily and prn and uses 2L N/C at hs Kidney stones Migraine Neurogenic claudication due to lumbar spinal stenosis On home oxygen therapy 2L at hs Osteoarthritis of left knee Pancytopenia Parkinsonism per pt has a difficulty swallowing, states certain foods can be difficult to eat Pneumonia hx of, per pt last admission @ [facility] was 05/2022 Polymyositis Prostate cancer radiation Pyelonephritis Rheumatoid arthritis Seizure disorder Seizure-like activity Shortness of breath per pt on with exertion Somatic dysfunction of cervical region Stroke-like symptom 12/2019, w/ blurry vision and dysarthria. mild R sided wkness. attending outpatient physical therapy w/ good improvement in strength (5+/5 strength of all 4 extremities as of 05/28/20) Supratherapeutic INR Thoracic ascending aortic aneurysm s/p repair TIA (transient ischemic attack) 2019--no deficits--follows with Dr. Sheikh Urinary tract infection Surgical History H/O hernia repair History of aortic valve replacement 2003 @ [facility] in [place], [place] History of appendectomy History of bilateral cataract extraction History of cardiac cath x3--2018 @ [facility] with 1 stent placed/2019 @ [facility]/last 04/2021 @ [facility] History of cholecystectomy History of colonoscopy History of esophagogastroduodenoscopy (EGD) History of fusion of cervical spine normal ROM History of gastric bypass 2007--lap band History of heart artery stent x1--2017 @ [facility] History of lumbar spinal fusion History of lung biopsy 2019 History of partial nephrectomy 1986 on right kidney History of prostate biopsy malignant History of tonsillectomy History of tooth extraction all upper teeth removed Mechanical heart valve present Family History Mother , age 87 of pulmonary issues Rheumatoid arthritis Father , in his mid 80s of a stroke Stroke Other Coronary heart disease No family history of adverse response to anesthesia Social History Smoking Status: Never smoker Second Hand Exposure: No; Do You Dip or Chew Tobacco: No; Hx Alcohol Use: No Hx Substance Use: No Preferred Language: Honduran Communication Ability: Effective Hearing Ability: Hard of Hearing Ice Cream Chef Required: No Beliefs That Will Affect Care: None marital status: / Current Living Situation: Personal Care Facility Current Living Situation Comment: [place] [facility] current occupational status: retired 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 How many Children do You have: 2 How many Children do You have Comment: son Feels Safe at Home: Yes Assistive Devices: Oxygen - Continuous, Scooter/Electric Scooter and Walker Allergies Allergies Allergy/AdvReac Type Severity Reaction Status Date / Time bee venom protein (honey bee) Allergy Severe anaphylaxis Verified 01/02/23 18:00 Iodinated Contrast Media Allergy Severe Anaphylaxis Verified 01/02/23 18:00 shellfish derived Allergy Severe Anaphylaxis Verified 01/02/23 18:00 doxazosin Allergy Intermediate Rash Verified 01/02/23 18:00 tamsulosin [From Flomax] Allergy Intermediate Itching Verified 01/02/23 18:00 Tetanus Vaccines and Toxoid Allergy Unknown Unknown Verified 01/02/23 18:00 lamotrigine AdvReac Intermediate Confusion Verified 01/02/23 18:00 oxycodone [From Percocet] AdvReac Intermediate nausea/vomi Verified 01/02/23 18:00 ting propoxyphene [From Darvon] AdvReac Intermediate nausea/vomi Verified 01/02/23 18:00 ting Home Meds Home Medications Medication Instructions Recorded Confirmed atorvastatin 40 mg tablet 40 mg PO HS 05/28/20 01/02/23 fexofenadine 180 mg tablet 180 mg PO QAM 02/11/21 01/02/23 (Karlee Allergy) allopurinol 100 mg tablet 100 mg PO DAILY 04/10/21 01/02/23 cholecalciferol (vitamin D3) 50 4,000 unit PO HS 07/14/21 01/02/23 mcg (2,000 unit) capsule (Vitamin D3) insulin glargine 100 unit/mL (3 20 unit subcut BID 07/26/21 01/02/23 mL) subcutaneous pen (Lantus Solostar U-100 Insulin) albuterol sulfate 90 mcg/actuation 2 puff inhalation Q4H PRN 09/27/21 01/02/23 aerosol inhaler (Ventolin HFA) Shortness Of Breath Or Wheezing polyethylene glycol 3350 17 17 g PO QAM 10/04/21 01/02/23 gram/dose oral powder (Miralax) furosemide 20 mg tablet 20 mg PO QAM 11/24/21 01/02/23 sennosides 8.6 mg tablet (Senokot) 8.6 mg PO QAM 11/24/21 01/02/23 insulin aspart U-100 100 unit/mL 1 sliding scale dose subcut ACHS 02/26/22 01/02/23 (3 mL) subcutaneous pen (Novolog FlexPen U-100 Insulin aspart) diclofenac sodium 1 % topical gel 2 g topical TID PRN Pain 05/21/22 01/02/23 (Voltaren Arthritis Pain) cyanocobalamin (vitamin B-12) 1,000 mcg PO QAM 08/14/22 01/02/23 1,000 mcg tablet,extended release (Vitamin B-12 ER) gabapentin 300 mg capsule See Rx Instructions .Route .COMPLEX 08/14/22 01/02/23 magnesium 250 mg tablet 250 mg PO QAM 08/14/22 01/02/23 pantoprazole 20 mg tablet,delayed 20 mg PO QAM 08/14/22 01/02/23 release (Protonix) potassium chloride 20 mEq 20 meq PO HS 08/14/22 01/02/23 tablet,extended release prednisone 5 mg tablet 5 mg PO QAM 08/14/22 01/02/23 lactulose 20 gram/30 mL oral 20 g PO PM 09/30/22 01/02/23 solution sodium chloride 0.65 % nasal spray 2 spray intranasal QID PRN DRYNESS 09/30/22 01/02/23 aerosol (Saline Mist) topiramate 100 mg tablet 100 mg PO BID 09/30/22 01/02/23 dulaglutide 1.5 mg/0.5 mL 1.5 mg subcut WK 12/09/22 01/02/23 subcutaneous pen injector (Trulicity) aspirin 81 mg tablet,delayed 81 mg PO DAILY 01/02/23 01/02/23 release carbidopa 25 mg-levodopa 100 mg 1 tab PO QID 01/02/23 01/02/23 tablet (Sinemet) finasteride 5 mg tablet 5 mg PO QAM 01/02/23 01/02/23 Previous Rx's Medication Instructions Recorded acetaminophen 325 mg tablet 650 mg PO Q4H PRN pain #30 tabs 08/04/21 fluticasone fur. 100 mcg-umeclid 1 inh inhalation QAM #60 ea 09/06/21 62.5 mcg-vilant 25 mcg inhalat.powder (Trelegy Ellipta) ferrous sulfate 325 mg (65 mg 325 mg PO QAM #30 tabs 05/26/22 iron) tablet,delayed release levetiracetam 500 mg tablet 1,000 mg PO BID #360 tabs 08/03/22 (Keppra) ondansetron 4 mg disintegrating 4 mg PO Q6H PRN nausea and 08/24/22 tablet vomiting #30 tabs tramadol 50 mg tablet 50 mg PO Q6H PRN pain, moderate 12/13/22 #15 tabs warfarin 5 mg tablet 5 - 7.5 mg PO DIRECTED #30 tabs 12/13/22 Results & Data (ED) Vital Signs Vital Signs - 24 hr 01/02/23 17:23 01/02/23 17:22 01/02/23 17:20 Pulse Rate 80 71 Pulse Rate [Bilateral] Respiratory Rate 18 Respiratory Depth Blood Pressure 137/78 Blood Pressure [Right Arm] Blood Pressure Mean 97 Blood Pressure Mean [Right Arm] Pulse Oximetry 98 98 Oxygen Delivery Method Room Air Room Air Sepsis Recent Fever Within 48 Hours No Sepsis New/Unexplained Change in Mental Status N/A Sepsis Action Taken by Nursing No Action Required 01/02/23 17:20 01/02/23 18:04 01/02/23 19:00 Pulse Rate Pulse Rate [Bilateral] 71 63 67 Respiratory Rate 15 17 16 Respiratory Depth Normal Blood Pressure Blood Pressure [Right Arm] 137/78 139/64 148/68 H Blood Pressure Mean Blood Pressure Mean [Right Arm] 97 89 94 Pulse Oximetry 98 96 100 Oxygen Delivery Method Room Air Room Air Sepsis Recent Fever Within 48 Hours Sepsis New/Unexplained Change in Mental Status Sepsis Action Taken by Nursing 01/02/23 21:19 01/02/23 21:00 Pulse Rate 68 Pulse Rate [Bilateral] 59 L Respiratory Rate 12 Respiratory Depth Normal Blood Pressure Blood Pressure [Right Arm] 149/73 H Blood Pressure Mean Blood Pressure Mean [Right Arm] 98 Pulse Oximetry 92 Oxygen Delivery Method Room Air Sepsis Recent Fever Within 48 Hours Sepsis New/Unexplained Change in Mental Status Sepsis Action Taken by Nursing Laboratory Data 01/02/23 17:30 01/02/23 17:30 Lab Results 01/02/23 01/02/23 01/02/23 Range/Units 17:16 17:30 17:30 WBC 5.49 (4.8-10.8) K/ul RBC 4.48 L (4.70-6.10) M/uL Hgb 12.2 L (14.0-18.0) g/dl Hct 37.9 L (42.0-52.0) % MCV 84.6 (80.0-100.0) fL MCH 27.2 (25.0-34.0) pg MCHC 32.2 (32.0-36.0) g/dL RDW Std Deviation 47.9 H (36.4-46.3) fL RDW Coeff of Lianne 15.6 H (11.5-14.5) % Plt Count 179 (130-400) K/uL MPV 9.9 (9.4-12.4) fL Immature Gran % (Auto) 0.5 % Neut % (Auto) 50.3 % Lymph % (Auto) 39.2 % [place] % (Auto) 6.4 % Eos % (Auto) 3.1 % Baso % (Auto) 0.5 % Neut # (Auto) 2.76 (1.40-6.50) K/uL Lymph # (Auto) 2.15 (1.20-3.40) K/uL [place] # (Auto) 0.35 (0.11-0.59) K/uL Eos # (Auto) 0.17 (0.00-0.50) K/uL Baso # (Auto) 0.03 (0.00-0.20) K/uL Immature Gran # (Auto) 0.03 (0.01-0.20) K/uL PT 27.6 H (9.0-12.0) Seconds INR 2.7 H (0.9-1.1) Sodium (136-145) mmol/L Potassium (3.5-5.1) mmol/L Chloride (98-107) mmol/L Carbon Dioxide (21-32) mmol/L Anion Gap (3-11) BUN (6-23) mg/dl Creatinine (0.6-1.4) mg/dl Est Cr Clr Drug Dosing Est GFR ( Amer) ml/min Est GFR (Non-Af Amer) ml/min BUN/Creatinine Ratio (10-20) Glucose (70-99(Fasting)) mg/dl POC Glucose 58 L* (70-99) mg/dl Calcium (8.6-10.3) mg/dl Total Bilirubin (0.2-1.0) mg/dl AST (13-39) U/L ALT (7-52) U/L Alkaline Phosphatase (34-104) U/L Troponin I High Sens (0-20) pg/ml Total Protein (6.0-8.3) gm/dl Albumin (3.4-5.0) gm/dl Globulin (2.5-4.0) gm/dl Albumin/Globulin Ratio (0.9-2) Lipase (11-82) U/L SARS-CoV-2, RNA, NAAT (NEGATIVE) 01/02/23 01/02/23 01/02/23 Range/Units 17:30 19:41 20:00 WBC (4.8-10.8) K/ul RBC (4.70-6.10) M/uL Hgb (14.0-18.0) g/dl Hct (42.0-52.0) % MCV (80.0-100.0) fL MCH (25.0-34.0) pg MCHC (32.0-36.0) g/dL RDW Std Deviation (36.4-46.3) fL RDW Coeff of Lianne (11.5-14.5) % Plt Count (130-400) K/uL MPV (9.4-12.4) fL Immature Gran % (Auto) % Neut % (Auto) % Lymph % (Auto) % [place] % (Auto) % Eos % (Auto) % Baso % (Auto) % Neut # (Auto) (1.40-6.50) K/uL Lymph # (Auto) (1.20-3.40) K/uL [place] # (Auto) (0.11-0.59) K/uL Eos # (Auto) (0.00-0.50) K/uL Baso # (Auto) (0.00-0.20) K/uL Immature Gran # (Auto) (0.01-0.20) K/uL PT (9.0-12.0) Seconds INR (0.9-1.1) Sodium 140 (136-145) mmol/L Potassium 3.4 L (3.5-5.1) mmol/L Chloride 107 (98-107) mmol/L Carbon Dioxide 24 (21-32) mmol/L Anion Gap 9 (3-11) BUN 25 H (6-23) mg/dl Creatinine 1.36 (0.6-1.4) mg/dl Est Cr Clr Drug Dosing Not Reportable Est GFR ( Amer) 57.8 ml/min Est GFR (Non-Af Amer) 49.8 ml/min BUN/Creatinine Ratio 18.4 (10-20) Glucose 51 L* (70-99(Fasting)) mg/dl POC Glucose 91 (70-99) mg/dl Calcium 9.7 (8.6-10.3) mg/dl Total Bilirubin 0.5 (0.2-1.0) mg/dl AST 28 (13-39) U/L ALT 7 (7-52) U/L Alkaline Phosphatase 71 (34-104) U/L Troponin I High Sens 7.9 (0-20) pg/ml Total Protein 6.9 (6.0-8.3) gm/dl Albumin 4.2 (3.4-5.0) gm/dl Globulin 2.7 (2.5-4.0) gm/dl Albumin/Globulin Ratio 1.6 (0.9-2) Lipase 18 (11-82) U/L SARS-CoV-2, RNA, NAAT NEGATIVE (NEGATIVE) Administered Medications Discontinued Medications Aspirin (Aspirin Chew 324 Mg) 324 mg PO NOW STA Stop: 01/02/23 21:02 Last Admin: 01/02/23 22:50 Dose: Not Given Documented By: KEVIN Aspirin (Aspirin Chew 324 Mg) Confirm Administered Dose 324 mg .ROUTE .ST-MED ONE Stop: 01/02/23 22:45 Last Admin: 01/02/23 23:21 Dose: Not Given Documented By: NADIA Atorvastatin Calcium (Atorvastatin 40 Mg Tab) 40 mg PO NOW STA Stop: 01/02/23 21:55 Last Admin: 01/02/23 22:40 Dose: 40 mg Documented By: KEVIN Carbidopa/Levodopa (Carbidopa/Levodopa 25/100mg Tab) 1 tab PO NOW STA Stop: 01/02/23 21:55 Last Admin: 01/02/23 22:41 Dose: 1 tab Documented By: KEVIN Dextrose (Dextrose 50% 50 Ml Syringe) Confirm Administered Dose 50 ml IV .STK- MED ONE Stop: 01/02/23 17:21 Last Admin: 01/02/23 17:22 Dose: 25 ml Documented By: KEVIN Sodium Chloride (Nss) 500 mls @ 999 mls/hr IV .Q31M ONE Stop: 01/02/23 17:49 Last Infusion: 01/02/23 18:30 Dose: 0 mls/hr Documented By: Admin: 01/02/23 17:31 Dose: 999 mls/hr Documented By: KEVIN Lactulose (Lactulose Syrup 20 Gm/30 Ml Udc) 20 gm PO NOW ONE Stop: 01/02/23 21:55 Last Admin: 01/02/23 22:52 Dose: Not Given Documented By: KEVIN Levetiracetam (Levetiracetam 500 Mg Tab) 1,000 mg PO NOW STA Stop: 01/02/23 21:55 Last Admin: 01/02/23 22:39 Dose: 1,000 mg Documented By: KEVIN Topiramate (Topiramate 100 Mg Tab) 100 mg PO NOW STA Stop: 01/02/23 21:55 Last Admin: 01/02/23 22:41 Dose: 100 mg Documented By: KEVIN Warfarin Sodium (Warfarin Sod 5 Mg Tab) 5 mg PO NOW ONE Stop: 01/02/23 21:55 Last Admin: 01/02/23 22:41 Dose: 5 mg Documented By: KEVIN Imaging Data Radiologist's Impression: Cervical Spine CT 01/02/23 17:19 Exam(s): CT C SPINE EXAM: CT Cervical Spine Without Intravenous Contrast CLINICAL HISTORY: Reason for exam: fall. TECHNIQUE: Axial computed tomography images of the cervical spine without intravenous contrast. CTDI is 26.96 mGy and DLP is 603.62 mGy-cm. Automated exposure control was utilized for the study. A dose lowering technique was utilized adhering to the principles of ALARA. COMPARISON: CT C-spine on 09/09/2022 FINDINGS: Bones: Anterior fusion changes at C4-5. No acute fracture or bony lesion. Disc spaces: No subluxation. Degenerative changes of the spine. Soft tissues: Normal. Other: Fluid in left greater than right mastoid air cells. Mild mucosal thickening in the maxillary sinuses and ethmoid air cells. Atherosclerotic changes of the vasculature. IMPRESSION: No acute traumatic abnormality. Electronically signed by: Lawrence Sommer M.D. 01/02/23 20:[address] 01/02/23 17:19 Exam(s): CT HEAD Without Contrast EXAM: CT Head Without Intravenous Contrast CLINICAL HISTORY: Reason for exam: fal hit head. TECHNIQUE: Axial computed tomography images of the head/brain without intravenous contrast. CTDI is 37.01 mGy and DLP is 624.41 mGy-cm. Automated exposure control was utilized for the study. A dose lowering technique was utilized adhering to the principles of ALARA. COMPARISON: MRI brain on 12/19/2022. CT head on 12/19/2022. FINDINGS: Brain: No acute infarct or hemorrhage identified. No extra-axial fluid collection. No mass effect or midline shift. Scattered areas of hypoattenuation in the supratentorial white matter likely represent chronic small vessel ischemic changes. Ventricles and sulci: Prominence of the ventricles and sulci is likely secondary to cerebral volume loss. Bones: Normal. No bony lesion or acute fracture. Subcutaneous tissues: Normal. Sinuses: Normal. No air-fluid levels or mucosal thickening. Mastoid air cells: Fluid in the left greater than right mastoid air cells. Orbits: Bilateral lens implants. Other: Atherosclerotic calcifications in the intracranial vasculature. IMPRESSION: 1. No acute intracranial abnormality. 2. Chronic small vessel ischemic changes and cerebral volume loss. Electronically signed by: Lawrence Sommer M.D. 01/02/23 20:33 PM Chest X-Ray 01/02/23 17:20 SINGLE VIEW CHEST CLINICAL HISTORY: Atypical chest pain. FINDINGS: 2 AP, portable, upright chest radiographs are compared to study dated 12/19/2022. The patient is status post midline sternotomy and cardiac valve surgery. The heart is enlarged noting atherosclerotic calcification of the thoracic aorta. The pulmonary vasculature is noncongested. Chronic interstitial thickening is similar to previous. Postsurgical change is noted in the left lung base. There is bibasilar scarring/atelectasis. No airspace consolidation or large pleural effusion is identified. No pneumothorax is seen. The skeletal structures are osteopenic. The bony thorax is grossly intact. Fusion hardware is noted in the lower cervical spine. IMPRESSION: Cardiomegaly with no acute cardiopulmonary abnormality identified. ACT 112: Negative or not required by law. Electronically signed by: Tan Burleson M.D. 01/02/2023 5:51 PM Discharge Plan Visit Data Chief Complaint: Fall Stated Complaint: FALL, HIT HEAD, ON BLOOD THINNERS ED Provider: Jose R Heller Discharge Problem: Syncope, Hypoglycemia, Chest pain Patient Disposition: Admitted As Inpatient Discharge Instructions Interventions: ED Discharge Assessment Last Done: 01/02/23 22:43
--- NOTE | 2023-01-02 17:52 | XRay Report ---
SINGLE VIEW CHEST CLINICAL HISTORY: Atypical chest pain. FINDINGS: 2 AP, portable, upright chest radiographs are compared to study dated 12/19/2022. The patien t is status post midline sternotomy and cardiac valve surgery. The heart is enlarged noting atheroscl erotic calcification of the thoracic aorta. The pulmonary vasculature is noncongested. Chronic inters titial thickening is similar to previous. Postsurgical change is noted in the left lung base. There i s bibasilar scarring/atelectasis. No airspace consolidation or large pleural effusion is identified. No pneumothorax is seen. The skeletal structures are osteopenic. The bony thorax is grossly intact. F usion hardware is noted in the lower cervical spine. IMPRESSION: Cardiomegaly with no acute cardiopulmonary abnormality identified. ACT 112: Negative or not required by law. Electronically signed by: Tan Burleson M.D. 01/02/2023 5:51 PM
[2023-01-02 17:53] LABS: Basophils # (auto) 0.03 K/uL (0.00-0.20); Basophils % (auto) 0.5 %; Eosinophils # (auto) 0.17 K/uL (0.00-0.50); Eosinophils % (auto) 3.1 %; Hematocrit (blood only) 37.9 % (42.0-52.0); Hemoglobin 12.2 g/dl (14.0-18.0); Immature Granulocytes # (auto) 0.03 K/uL (0.01-0.20); Immature Granulocytes % (auto) 0.5 %; Lymphocytes # (auto) 2.15 K/uL (1.20-3.40); Lymphocytes % (auto) 39.2 %; Mean Corpuscular Hemoglobin 27.2 pg (25.0-34.0); Mean Corpuscular Hgb Conc 32.2 g/dL (32.0-36.0); Mean Corpuscular Volume 84.6 fL (80.0-100.0); Mean Platelet Volume 9.9 fL (9.4-12.4); Monocytes # (auto) 0.35 K/uL (0.11-0.59); Monocytes % (auto) 6.4 %; Neutrophils # (auto) 2.76 K/uL (1.40-6.50); Neutrophils % (auto) 50.3 %; Platelet Count 179 K/uL (130-400); RDW Coefficient of Variation 15.6 % (11.5-14.5); RDW Standard Deviation 47.9 fL (36.4-46.3); Red Blood Count 4.48 M/uL (4.70-6.10); White Blood Count 5.49 K/ul (4.8-10.8)
[2023-01-02 18:24] LABS: Alanine Aminotransferase 7 U/L (7-52); Albumin Globulin Ratio 1.6 (0.9-2); Albumin Level 4.2 gm/dl (3.4-5.0); Alkaline Phosphatase 71 U/L (34-104); Anion Gap 9 (3-11); Aspartate Aminotransferase 28 U/L (13-39); BUN Creatinine Ratio 18.4 (10-20); Bilirubin,Total 0.5 mg/dl (0.2-1.0); Blood Urea Nitrogen 25 mg/dl (6-23); Calcium 9.7 mg/dl (8.6-10.3); Carbon Dioxide 24 mmol/L (21-32); Chloride 107 mmol/L (98-107); Est GFR (African American) 57.8 ml/min; Est GFR (Non-African American) 49.8 ml/min; Globulin 2.7 gm/dl (2.5-4.0); Glucose 51 mg/dl (70-99(Fasting)); Lipase 18 U/L (11-82); Potassium 3.4 mmol/L (3.5-5.1); Sodium 140 mmol/L (136-145); Total Protein 6.9 gm/dl (6.0-8.3); Troponin I High Sensitivity 7.9 pg/ml (0-20)
[2023-01-02 18:25] LABS: INR 2.7 (0.9-1.1); Prothrombin Time 27.6 Seconds (9.0-12.0)
--- NOTE | 2023-01-02 20:33 | CT Scan Report ---
Exam(s): CT HEAD Without Contrast EXAM: CT Head Without Intravenous Contrast CLINICAL HISTORY: Reason for exam: fal hit head. TECHNIQUE: Axial computed tomography images of the head/brain without intravenous contrast. CTDI is 37.01 mGy and DLP is 624.41 mGy-cm. Automated exposure control was utilized for the study. A dose lowering technique was utilized adhering to the principles of ALARA. COMPARISON: MRI brain on 12/19/2022. CT head on 12/19/2022. FINDINGS: Brain: No acute infarct or hemorrhage identified. No extra-axial fluid collection. No mass effect or midline shift. Scattered areas of hypoattenuation in the supratentorial white matter likely represent chronic small vessel ischemic changes. Ventricles and sulci: Prominence of the ventricles and sulci is likely secondary to cerebral volume loss. Bones: Normal. No bony lesion or acute fracture. Subcutaneous tissues: Normal. Sinuses: Normal. No air-fluid levels or mucosal thickening. Mastoid air cells: Fluid in the left greater than right mastoid air cells. Orbits: Bilateral lens implants. Other: Atherosclerotic calcifications in the intracranial vasculature. IMPRESSION: 1. No acute intracranial abnormality. 2. Chronic small vessel ischemic changes and cerebral volume loss. Electronically signed by: Lawrence Sommer M.D. 01/02/23 20:33 PM
--- NOTE | 2023-01-02 20:48 | CT Scan Report ---
Exam(s): CT C SPINE EXAM: CT Cervical Spine Without Intravenous Contrast CLINICAL HISTORY: Reason for exam: fall. TECHNIQUE: Axial computed tomography images of the cervical spine without intravenous contrast. CTDI is 26.96 mGy and DLP is 603.62 mGy-cm. Automated exposure control was utilized for the study. A dose lowering technique was utilized adhering to the principles of ALARA. COMPARISON: CT C-spine on 09/09/2022 FINDINGS: Bones: Anterior fusion changes at C4-5. No acute fracture or bony lesion. Disc spaces: No subluxation. Degenerative changes of the spine. Soft tissues: Normal. Other: Fluid in left greater than right mastoid air cells. Mild mucosal thickening in the maxillary sinuses and ethmoid air cells. Atherosclerotic changes of the vasculature. IMPRESSION: No acute traumatic abnormality. Electronically signed by: Lawrence Sommer M.D. 01/02/23 20:46 PM
--- NOTE | 2023-01-02 21:52 | History & Physical Report ---
Date of Service January 02, 2023 Assessment & Plan (1) Weakness: Plan: 77yo male returning to the ER with ongoing weakness, inability to care for himself at home. Also with a syncopal event and some mild chest discomfort prior to arrival which has since resolved. -Observation to medical with telemetry -Trend troponin -PT/OT evaluation -Case Management evaluation for possible placement Patient seems to be in a difficult position - he has had frequent ER visits and hospital stays of late. He would greatly benefit from a rehab facility, however, his insurance has not approved him for such. He is having difficulty caring for himself at home. I mentioned possibility of discharge to a jail - he is quite reluctant because he is interested in receiving rehab and knows that he will not get a lot of intensive rehab if he is discharged to a jail. -LR at 100mL/hr x 2L -Potassium repletion -Repeat labs in AM (2) Psychogenic nonepileptic seizure: Plan: Chronic. No seizure activity at present -Continue Topiramate 100mg po BID -Continue Keppra 1000mg po BID (3) Chest pain: Plan: No chest pain at present -Telemetry monitoring -Repeat troponin (4) Mechanical heart valve present: Plan: Patient with mechanical aortic valve on Coumadin anticoagulation - INR today is 2.7 at goal. -Continue Coumadin -INR in AM (5) Parkinsonism: Plan: Chronic, stable -Continue Carbidopa/Levodopa History of Present Illness Chief Complaint: weakness Primary Care Provider: Tan Hammond DO Xavi Bradford is a 77yo male with with history of non-epileptic seizures, parkinsonism, CKD and mechanical aortic valve on Coumadin and RA/polymyositis on daily prednisone presenting with weakness. Patient was recently admitted to [facility] from 12/20/22 - 12/25/22 after presenting with seizure-like activity. Patient was discharged home with home PT twice weekly. He has had one PT session since returning home but is not happy with his progress. He has been feeling very weak at home; unable to care for himself. [place]. He reports poor appetite and decreased oral intake. He was seen by his PCP today with the complaint of ongoing weakness. He was instructed to come to the ER. He parked very far away and was unable to walk to the front door of the ER so he just went home. He returns to the ER now. He also reports some chest discomfort and a syncopal event prior to arrival. Afebrile, HD stable Allergies Allergy/AdvReac Type Severity Reaction Status Date / Time bee venom protein (honey bee) Allergy Severe anaphylaxis Verified 01/02/23 18:00 Iodinated Contrast Media Allergy Severe Anaphylaxis Verified 01/02/23 18:00 shellfish derived Allergy Severe Anaphylaxis Verified 01/02/23 18:00 doxazosin Allergy Intermediate Rash Verified 01/02/23 18:00 tamsulosin [From Flomax] Allergy Intermediate Itching Verified 01/02/23 18:00 Tetanus Vaccines and Toxoid Allergy Unknown Unknown Verified 01/02/23 18:00 lamotrigine AdvReac Intermediate Confusion Verified 01/02/23 18:00 oxycodone [From Percocet] AdvReac Intermediate nausea/vomi Verified 01/02/23 18:00 ting propoxyphene [From Darvon] AdvReac Intermediate nausea/vomi Verified 01/02/23 18:00 ting Home Medications Medication Instructions Recorded Confirmed Type atorvastatin 40 mg tablet 40 mg PO HS 05/28/20 01/02/23 History fexofenadine 180 mg tablet 180 mg PO QAM 02/11/21 01/02/23 History (Karlee Allergy) allopurinol 100 mg tablet 100 mg PO DAILY 04/10/21 01/02/23 History cholecalciferol (vitamin D3) 50 4,000 unit PO HS 07/14/21 01/02/23 History mcg (2,000 unit) capsule (Vitamin D3) insulin glargine 100 unit/mL (3 20 unit subcut BID 07/26/21 01/02/23 History mL) subcutaneous pen (Lantus Solostar U-100 Insulin) acetaminophen 325 mg tablet 650 mg PO Q4H PRN pain #30 tabs 08/04/21 01/02/23 Rx fluticasone fur. 100 mcg-umeclid 1 inh inhalation QAM #60 ea 09/06/21 01/02/23 Rx 62.5 mcg-vilant 25 mcg inhalat.powder (Trelegy Ellipta) albuterol sulfate 90 mcg/actuation 2 puff inhalation Q4H PRN 09/27/21 01/02/23 History aerosol inhaler (Ventolin HFA) Shortness Of Breath Or Wheezing polyethylene glycol 3350 17 17 g PO QAM 10/04/21 01/02/23 History gram/dose oral powder (Miralax) furosemide 20 mg tablet 20 mg PO QAM 11/24/21 01/02/23 History sennosides 8.6 mg tablet (Senokot) 8.6 mg PO QAM 11/24/21 01/02/23 History insulin aspart U-100 100 unit/mL 1 sliding scale dose subcut ACHS 02/26/22 01/02/23 History (3 mL) subcutaneous pen (Novolog FlexPen U-100 Insulin aspart) diclofenac sodium 1 % topical gel 2 g topical TID PRN Pain 05/21/22 01/02/23 History (Voltaren Arthritis Pain) ferrous sulfate 325 mg (65 mg 325 mg PO QAM #30 tabs 05/26/22 01/02/23 Rx iron) tablet,delayed release levetiracetam 500 mg tablet 1,000 mg PO BID #360 tabs 08/03/22 01/02/23 Rx (Keppra) cyanocobalamin (vitamin B-12) 1,000 mcg PO QAM 08/14/22 01/02/23 History 1,000 mcg tablet,extended release (Vitamin B-12 ER) gabapentin 300 mg capsule See Rx Instructions .Route .COMPLEX 08/14/22 01/02/23 History magnesium 250 mg tablet 250 mg PO QAM 08/14/22 01/02/23 History pantoprazole 20 mg tablet,delayed 20 mg PO QAM 08/14/22 01/02/23 History release (Protonix) potassium chloride 20 mEq 20 meq PO HS 08/14/22 01/02/23 History tablet,extended release prednisone 5 mg tablet 5 mg PO QAM 08/14/22 01/02/23 History ondansetron 4 mg disintegrating 4 mg PO Q6H PRN nausea and 08/24/22 01/02/23 Rx tablet vomiting #30 tabs lactulose 20 gram/30 mL oral 20 g PO PM 09/30/22 01/02/23 History solution sodium chloride 0.65 % nasal spray 2 spray intranasal QID PRN DRYNESS 09/30/22 01/02/23 History aerosol (Saline Mist) topiramate 100 mg tablet 100 mg PO BID 09/30/22 01/02/23 History dulaglutide 1.5 mg/0.5 mL 1.5 mg subcut WK 12/09/22 01/02/23 History subcutaneous pen injector (Trulicity) tramadol 50 mg tablet 50 mg PO Q6H PRN pain, moderate 12/13/22 01/02/23 Rx #15 tabs warfarin 5 mg tablet 5 - 7.5 mg PO DIRECTED #30 tabs 12/13/22 01/02/23 Rx aspirin 81 mg tablet,delayed 81 mg PO DAILY 01/02/23 01/02/23 History release carbidopa 25 mg-levodopa 100 mg 1 tab PO QID 01/02/23 01/02/23 History tablet (Sinemet) finasteride 5 mg tablet 5 mg PO QAM 01/02/23 01/02/23 History Past Med/Surg History Medical History SHYANN (acute kidney injury) Anemia history of blood transfusion, 2020 Anxiety Aortic ectasia, thoracic Aspiration pneumonia hx of--per pt was due to pain medications Asthma inhaler daily and prn CAD (coronary artery disease) follows with Dr. 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 inhaler daily and prn and uses 2L N/C at hs Kidney stones Migraine Neurogenic claudication due to lumbar spinal stenosis On home oxygen therapy 2L at hs Osteoarthritis of left knee Pancytopenia Parkinsonism per pt has a difficulty swallowing, states certain foods can be difficult to eat Pneumonia hx of, per pt last admission @ [facility] was 05/2022 Polymyositis Prostate cancer radiation Pyelonephritis Rheumatoid arthritis Seizure disorder Seizure-like activity Shortness of breath per pt on with exertion Somatic dysfunction of cervical region Stroke-like symptom 12/2019, w/ blurry vision and dysarthria. mild R sided wkness. attending outpatient physical therapy w/ good improvement in strength (5+/5 strength of all 4 extremities as of 05/28/20) Supratherapeutic INR Thoracic ascending aortic aneurysm s/p repair TIA (transient ischemic attack) 2019--no deficits--follows with Dr. Sheikh Urinary tract infection Surgical History H/O hernia repair History of aortic valve replacement 2004 @ [facility] in [place], [place] History of appendectomy History of bilateral cataract extraction History of cardiac cath x3--2018 @ [facility] with 1 stent placed/2019 @ [facility]/last 04/2021 @ [facility] History of cholecystectomy History of colonoscopy History of esophagogastroduodenoscopy (EGD) History of fusion of cervical spine normal ROM History of gastric bypass 2007--lap band History of heart artery stent x1--2017 @ [facility] History of lumbar spinal fusion History of lung biopsy 2018 History of partial nephrectomy 1986 on right kidney History of prostate biopsy malignant History of tonsillectomy History of tooth extraction all upper teeth removed Mechanical heart valve present Family History Mother , age 87 of pulmonary issues Rheumatoid arthritis Father , in his mid 80s of a stroke Stroke Other Coronary heart disease No family history of adverse response to anesthesia Social History Smoking Status: Never smoker Second Hand Exposure: No; Do You Dip or Chew Tobacco: No; Hx Alcohol Use: No Hx Substance Use: No Preferred Language: Lao Communication Ability: Effective Hearing Ability: Hard of Hearing Automation Lead Required: No Beliefs That Will Affect Care: None marital status: / Current Living Situation: Personal Care Facility Current Living Situation Comment: [place] [facility] current occupational status: retired 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 How many Children do You have: 2 How many Children do You have Comment: son Feels Safe at Home: Yes Assistive Devices: Oxygen - Continuous, Scooter/Electric Scooter and Walker Review of Systems Review of Systems: All systems reviewed & are unremarkable except as noted in HPI & below Physical Exam Physical Exam: General: patient resting comfortably, NAD, non-toxic in appearance, AA&O x 4 Skin: warm, dry, intact, no rashes or lesions HEENT: NC/AT, PERRL, EOMI, anicteric sclera, conjunctiva without injection, external ear normal to inspection and nontender, nares patent, moist mucus membranes, dentition intact, no oropharyngeal lesions, neck supple, trachea midline, no LAD, no thyromegaly, no JVD Heart: +S1/S2, regular, no m/r/g Lungs: equal air entry bilaterally, no rales/rhonchi/wheezes Abd: +BS, soft, NT/ND, no masses/organomegaly/ascites Ext: warm, 2+ pulses in UE/LE bilaterally, no clubbing/cyanosis or edema Neuro: nonfocal, patient AA&O x 4, speech intact, no facial droop, moving all extremities on command with equal strength 5/5 Results & Data Results & Data Vital Signs (Past 12 Hours) Vital Signs Pulse Pulse Resp BP BP Pulse Ox O2 Del Method 01/02/23 21:19 68 01/02/23 19:00 67 16 148/68 H 100 Room Air 01/02/23 18:04 63 17 139/64 96 Room Air 01/02/23 17:20 71 15 137/78 98 01/02/23 17:20 71 18 137/78 98 Room Air 01/02/23 17:22 80 01/02/23 17:23 98 Room Air Laboratory Results Laboratory Results WBC 5.49 K/ul (4.8-10.8) 01/02/23 17:30 RBC 4.48 M/uL (4.70-6.10) L 01/02/23 17:30 Hgb 12.2 g/dl (14.0-18.0) L 01/02/23 17:30 Hct 37.9 % (42.0-52.0) L 01/02/23 17:30 MCV 84.6 fL (80.0-100.0) 01/02/23 17:30 MCH 27.2 pg (25.0-34.0) 01/02/23 17:30 MCHC 32.2 g/dL (32.0-36.0) 01/02/23 17:30 RDW Std Deviation 47.9 fL (36.4-46.3) H 01/02/23 17:30 RDW Coeff of Lianne 15.6 % (11.5-14.5) H 01/02/23 17:30 Plt Count 179 K/uL (130-400) 01/02/23 17:30 MPV 9.9 fL (9.4-12.4) 01/02/23 17:30 Immature Gran % (Auto) 0.5 % 01/02/23 17:30 Neut % (Auto) 50.3 % 01/02/23 17:30 Lymph % (Auto) 39.2 % 01/02/23 17:30 [place]han % (Auto) 6.4 % 01/02/23 17:30 Eos % (Auto) 3.1 % 01/02/23 17:30 Baso % (Auto) 0.5 % 01/02/23 17:30 Neut # (Auto) 2.76 K/uL (1.40-6.50) 01/02/23 17:30 Lymph # (Auto) 2.15 K/uL (1.20-3.40) 01/02/23 17:30 Don[place]han # (Auto) 0.35 K/uL (0.11-0.59) 01/02/23 17:30 Eos # (Auto) 0.17 K/uL (0.00-0.50) 01/02/23 17:30 Baso # (Auto) 0.03 K/uL (0.00-0.20) 01/02/23 17:30 Immature Gran # (Auto) 0.03 K/uL (0.01-0.20) 01/02/23 17:30 PT 27.6 Seconds (9.0-12.0) H 01/02/23 17:30 INR 2.7 (0.9-1.1) H 01/02/23 17:30 Sodium 140 mmol/L (136-145) 01/02/23 17:30 Potassium 3.4 mmol/L (3.5-5.1) L 01/02/23 17:30 Chloride 107 mmol/L (98-107) 01/02/23 17:30 Carbon Dioxide 24 mmol/L (21-32) 01/02/23 17:30 Anion Gap 9 (3-11) 01/02/23 17:30 BUN 25 mg/dl (6-23) H 01/02/23 17:30 Creatinine 1.36 mg/dl (0.6-1.4) 01/02/23 17:30 Est Cr Clr Drug Dosing Not Reportable 01/02/23 17:30 Est GFR ( Amer) 57.8 ml/min 01/02/23 17:30 Est GFR (Non-Af Amer) 49.8 ml/min 01/02/23 17:30 BUN/Creatinine Ratio 18.4 (10-20) 01/02/23 17:30 Glucose 51 mg/dl (70-99(Fasting)) L* 01/02/23 17:30 POC Glucose 91 mg/dl (70-99) 01/02/23 19:41 Calcium 9.7 mg/dl (8.6-10.3) 01/02/23 17:30 Phosphorus 4.0 mg/dl (2.5-4.9) 01/02/23 23:58 Magnesium 2.1 mg/dl (1.7-2.4) 01/02/23 23:58 Total Bilirubin 0.5 mg/dl (0.2-1.0) 01/02/23 17:30 AST 28 U/L (13-39) 01/02/23 17:30 ALT 7 U/L (7-52) 01/02/23 17:30 Alkaline Phosphatase 71 U/L (34-104) 01/02/23 17:30 Troponin I High Sens 12.1 pg/ml (0-20) D 01/02/23 23:58 Total Protein 6.9 gm/dl (6.0-8.3) 01/02/23 17:30 Albumin 4.2 gm/dl (3.4-5.0) 01/02/23 17:30 Globulin 2.7 gm/dl (2.5-4.0) 01/02/23 17:30 Albumin/Globulin Ratio 1.6 (0.9-2) 01/02/23 17:30 Lipase 18 U/L (11-82) 01/02/23 17:30 SARS-CoV-2, RNA, NAAT NEGATIVE (NEGATIVE) 01/02/23 20:[address] 01/02/23 17:19 Exam(s): CT C SPINE EXAM: CT Cervical Spine Without Intravenous Contrast CLINICAL HISTORY: Reason for exam: fall. TECHNIQUE: Axial computed tomography images of the cervical spine without intravenous contrast. CTDI is 26.96 mGy and DLP is 603.62 mGy-cm. Automated exposure control was utilized for the study. A dose lowering technique was utilized adhering to the principles of ALARA. COMPARISON: CT C-spine on 09/09/2022 FINDINGS: Bones: Anterior fusion changes at C4-5. No acute fracture or bony lesion. Disc spaces: No subluxation. Degenerative changes of the spine. Soft tissues: Normal. Other: Fluid in left greater than right mastoid air cells. Mild mucosal thickening in the maxillary sinuses and ethmoid air cells. Atherosclerotic changes of the vasculature. IMPRESSION: No acute traumatic abnormality. Electronically signed by: Lawrence Sommer M.D. 01/02/23 20:[address] 01/02/23 17:19 Exam(s): CT HEAD Without Contrast EXAM: CT Head Without Intravenous Contrast CLINICAL HISTORY: Reason for exam: fal hit head. TECHNIQUE: Axial computed tomography images of the head/brain without intravenous contrast. CTDI is 37.01 mGy and DLP is 624.41 mGy-cm. Automated exposure control was utilized for the study. A dose lowering technique was utilized adhering to the principles of ALARA. COMPARISON: MRI brain on 12/19/2022. CT head on 12/19/2022. FINDINGS: Brain: No acute infarct or hemorrhage identified. No extra-axial fluid collection. No mass effect or midline shift. Scattered areas of hypoattenuation in the supratentorial white matter likely represent chronic small vessel ischemic changes. Ventricles and sulci: Prominence of the ventricles and sulci is likely secondary to cerebral volume loss. Bones: Normal. No bony lesion or acute fracture. Subcutaneous tissues: Normal. Sinuses: Normal. No air-fluid levels or mucosal thickening. Mastoid air cells: Fluid in the left greater than right mastoid air cells. Orbits: Bilateral lens implants. Other: Atherosclerotic calcifications in the intracranial vasculature. IMPRESSION: 1. No acute intracranial abnormality. 2. Chronic small vessel ischemic changes and cerebral volume loss. Electronically signed by: Lawrence Sommer M.D. 01/02/23 20:33 PM Chest X-Ray 01/02/23 17:20 SINGLE VIEW CHEST CLINICAL HISTORY: Atypical chest pain. FINDINGS: 2 AP, portable, upright chest radiographs are compared to study dated 12/19/2022. The patient is status post midline sternotomy and cardiac valve surgery. The heart is enlarged noting atherosclerotic calcification of the thoracic aorta. The pulmonary vasculature is noncongested. Chronic interstitial thickening is similar to previous. Postsurgical change is noted in the left lung base. There is bibasilar scarring/atelectasis. No airspace consolidation or large pleural effusion is identified. No pneumothorax is seen. The skeletal structures are osteopenic. The bony thorax is grossly intact. Fusion hardware is noted in the lower cervical spine. IMPRESSION: Cardiomegaly with no acute cardiopulmonary abnormality identified. ACT 112: Negative or not required by law. Electronically signed by: Tan Burleson M.D. 01/02/2023 5:51 PM PG Care Time/CCT Total # of Minutes Spent Total Time Spent with Patient: Total time spent is greater than 50% in coordination of care (as documented) at patient's floor/unit and/or counseling patient: Coding Level of Care Code 79475 INT INP/OBS CARE 2/55MIN Diagnoses Weakness R53.1 Psychogenic nonepileptic seizure F44.5 Chest pain R07.9 Mechanical heart valve present Z95.2 Parkinsonism G20
[2023-01-02] MEDS ORDERED: WARFARIN SOD 5 MG TAB PO ONE (21:54)
[2023-01-02] MEDS ORDERED: CARBIDOPA/LEVODOPA 25/100MG TAB PO STA (21:54)
[2023-01-02] MEDS ORDERED: levETIRAcetam 500 MG TAB PO STA (21:54)
[2023-01-02] MEDS ORDERED: TOPIRAMATE 100 MG TAB PO STA (21:54)
[2023-01-02] MEDS ORDERED: LACTULOSE SYRUP 20 GM/30 ML UDC PO ONE (21:54)
[2023-01-02] MEDS ORDERED: ATORVASTATIN 40 MG TAB PO STA (21:54)
[2023-01-02] MEDS ORDERED: CARBOHYDRATES FOR HYPOGLYCEMIA PO PRN (22:42)
[2023-01-02] MEDS ORDERED: GLUCOSE 10 TAB/TUBE PO PRN (22:42)
[2023-01-02] MEDS ORDERED: GLUCOSE 40% GEL 15 GM TUBE PO PRN (22:42)
[2023-01-02] MEDS ORDERED: traMADol HCL 50 MG TABLET PO PRN (22:42)
[2023-01-02] MEDS ORDERED: ACETAMINOPHEN 325 MG TAB PO PRN (22:42)
[2023-01-02] MEDS ORDERED: DEXTROSE 50% 50 ML SYRINGE IV PRN (22:42)
[2023-01-02] MEDS ORDERED: GLUCAGON FOR INJ 1 MG VIAL SQ PRN (22:42)
[2023-01-02] MEDS ORDERED: ONDANSETRON 4 MG OD TAB PO PRN (22:42)
[2023-01-02] MEDS ORDERED: POTASSIUM CHLORIDE CRTAB 20 MEQ TABCR PO STA (22:42)
[2023-01-02] MEDS ORDERED: ALBUTEROL HFA 8 GM INHALER INH PRN (22:42)
[2023-01-02] MEDS ORDERED: ASPIRIN CHEW 324 MG ONE (22:44)
[2023-01-02] MEDS: ASPIRIN CHEW 324 MG PO STA ×2 (22:46→22:50)
[2023-01-03 00:25] LABS: Magnesium 2.1 mg/dl (1.7-2.4)
[2023-01-03] MEDS: LACTATED RINGER'S 1,000 ML IV SCH ×2 (00:38→10:25)
[2023-01-03] MEDS: GABAPENTIN 300 MG CAP PO SCH ×3 (00:38→21:07)
[2023-01-03] MEDS ORDERED: POTASSIUM CHLORIDE 20 MEQ/15 ML UDC PO STA (00:55)
[2023-01-03 04:48] LABS: Hematocrit (blood only) 33.7 % (42.0-52.0); Hemoglobin 10.7 g/dl (14.0-18.0); Mean Corpuscular Hemoglobin 27.2 pg (25.0-34.0); Mean Corpuscular Hgb Conc 31.8 g/dL (32.0-36.0); Mean Corpuscular Volume 85.5 fL (80.0-100.0); Mean Platelet Volume 10.2 fL (9.4-12.4); Platelet Count 147 K/uL (130-400); RDW Coefficient of Variation 15.4 % (11.5-14.5); RDW Standard Deviation 48.4 fL (36.4-46.3); Red Blood Count 3.94 M/uL (4.70-6.10); White Blood Count 3.93 K/ul (4.8-10.8)
[2023-01-03 04:51] LABS: BUN Creatinine Ratio 18.7 (10-20); Creatinine Clr Calc Pharmacy 62.2 ml/min; Est GFR (African American) 65.2 ml/min; Est GFR (Non-African American) 56.3 ml/min; Potassium 3.9 mmol/L (3.5-5.1)
[2023-01-03 04:57] LABS: Troponin I High Sensitivity 8.8 pg/ml (0-20)
[2023-01-03 05:08] LABS: INR 2.4 (0.9-1.1); Prothrombin Time 25.2 Seconds (9.0-12.0)
--- NOTE | 2023-01-03 07:40 | Hospitalist Progress Note ---
Date of Service January 03, 2023 Assessment & Plan (1) Weakness: Plan: 77yo male returning to the ER with ongoing weakness, inability to care for himself at home. Also with a syncopal event and some mild chest discomfort prior to arrival which has since resolved. -continue to monitor on telemetry -Troponin downtrending -PT/OT evaluation -S/p 2L IVF on admission -Case Management evaluation for possible placement Patient seems to be in a difficult position - he has had frequent ER visits and hospital stays of late. He would greatly benefit from a rehab facility, however, his insurance has not approved him for such. He is having difficulty caring for himself at home. (2) Psychogenic nonepileptic seizure: Plan: Chronic. No seizure activity at present -Continue Topiramate 100mg po BID -Continue Keppra 1000mg po BID - Concern for driving given weakness, history of seizures, states he had licence revoked for 6 months in the past by neurology- will review prior notes (3) Chest pain: Plan: No chest pain at present -Telemetry monitoring -Tropinin downtrending (4) Mechanical heart valve present: Plan: Patient with mechanical aortic valve on Coumadin anticoagulation - INR today is 2.4 - Goal 2.5-3.5 -Continue Coumadin -INR in AM (5) Parkinsonism: Plan: Chronic, stable -Continue Carbidopa/Levodopa Admission and Anticipated Discharge Date Admission Date: January 02, 2023 Supervising Physician Co-Signing Physician Notes I personally examined the patient and verified peña points of history and exam, discussed case, and agree with decision making and plan documented by Dr. Rosa. Patient on readmission (eighth admission for 2022) for diffuse weakness and deconditioning. Discussed concern of patient's ability to care for himself in independant living. He states that he wants to go to rehab for conditioning and that insurance will not pay. We discussed concern for his driving a motor vehicle, patient was advised by PCP to go to ED prior to this hospitalization, he refused EMS transport, states he was unable to find a "close parking spot at ED" and instead he drove home. Patient was symptomatic at home and alerted EMS to bring him to hospital. Concern for safety at home and while driving in setting of recurrent symptoms. Subjective Xavi doing better this morning. Still has a appetite. Would like to go to rehab to help with strengthening with [place]. Review of Systems Review of Systems: As per above Physical Exam Physical Exam: Constitutional: well-appearing, no acute distress HEENT: NCAT, no conjunctival injection CV: regular rhythm, no murmur appreciated, extremities well-perfused, no LE edema Resp: CTABL, no wheezes/rales/rhonchi appreciated, no increased work of breathing GI: soft, nondistended, nontender, BS normoactive MSK: no gross deformities appreciated Skin: warm, dry, no rash appreciated Neuro: alert, oriented, no focal neurologic deficit appreciated Results & Data Results & Data Vital Signs (Past 12 Hours) Vital Signs Pulse Pulse Resp BP BP Pulse Ox O2 Del Method 01/03/23 07:26 63 01/03/23 05:00 109/80 01/03/23 06:00 68 12 95 01/03/23 05:00 91 H 12 95 Nasal Cannula 01/03/23 04:00 67 12 94 Nasal Cannula 01/03/23 03:00 69 12 97 01/02/23 23:47 63 01/03/23 02:00 64 12 145/68 H 97 Nasal Cannula 01/03/23 01:37 73 23 113/61 98 Room Air 01/03/23 01:30 71 19 01/03/23 00:32 95 H 18 110/61 96 Room Air 01/03/23 00:00 65 22 91 01/02/23 23:30 71 19 98 01/02/23 23:30 128/77 01/02/23 23:00 79 24 128/65 96 01/02/23 21:00 59 L 12 149/73 H 92 Room Air 01/02/23 21:19 68 O2 Flow Rate 01/03/23 07:26 01/03/23 05:00 01/03/23 06:00 01/03/23 05:00 2 01/03/23 04:00 2 01/03/23 03:00 01/02/23 23:47 01/03/23 02:00 2 01/03/23 01:37 01/03/23 01:30 01/03/23 00:32 01/03/23 00:00 01/02/23 23:30 01/02/23 23:30 01/02/23 23:00 01/02/23 21:00 01/02/23 21:19 Resident Activity Tracking Resident Involvement: Resident Care Provided Care Provided: Adult Hospital Medicine
[2023-01-03] MEDS ORDERED: NON-FORMULARY MEDICATION (Fluticasone-Umeclidin-Vilanter [Trelegy Ellipta] 100-62.5-25 mcg INH SCH (09:00)
[2023-01-03] MEDS: ASPIRIN 81 MG ECTAB PO SCH (10:21)
[2023-01-03] MEDS: FEXOFENADINE HCL 180 MG TAB PO SCH (10:22)
[2023-01-03] MEDS: CARBIDOPA/LEVODOPA 25/100MG TAB PO SCH ×4 (10:22→21:07)
[2023-01-03] MEDS: allopurinoL 100 MG TAB PO SCH (10:22)
[2023-01-03] MEDS: FINASTERIDE 5 MG TAB PO SCH (10:22)
[2023-01-03] MEDS: SENNA 8.6 MG TAB PO SCH (10:23)
[2023-01-03] MEDS: PANTOprazole 40 MG TAB PO SCH (10:23)
[2023-01-03] MEDS: levETIRAcetam 500 MG TAB PO SCH ×2 (10:23→21:08)
[2023-01-03] MEDS: TOPIRAMATE 100 MG TAB PO SCH ×2 (10:23→21:08)
[2023-01-03] MEDS: predniSONE 5 MG TAB PO SCH (10:23)
[2023-01-03] MEDS: POLYETHYLENE (MIRALAX) 17 GM PACK PO SCH (10:24)
[2023-01-03] MEDS: INSULIN ASPART PER UNIT CHARGE SC SCH ×4 (10:25→21:05)
[2023-01-03] MEDS: LANTUS PER UNIT CHARGE SQ SCH ×2 (10:26→21:05)
[2023-01-03] MEDS: FLUTICASONE FUROATE 100MCG 14 PUFFS/INHALER INH SCH (10:27)
[2023-01-03] MEDS: UMECLIDINIUM/VILANTEROL 62.5/25MCG 7 PUFFS/INHALER INH SCH (10:27)
--- NOTE | 2023-01-03 16:08 | Electrocardiogram Report ---
Test Reason : Blood Pressure : / mmHG Vent. Rate : 075 BPM Atrial Rate : 075 BPM P-R Int : 144 ms QRS Dur : 088 ms QT Int : 420 ms P-R-T Axes : 056 007 068 degrees QTc Int : 469 ms Sinus rhythm with Premature atrial complexes with Aberrant conduction Otherwise normal ECG When compared with ECG of 19-DEC-2022 14:42, Sinus rhythm has replaced Atrial fibrillation Confirmed by Cody Soto ([id number]) on 01/03/2023 4:07:49 PM Referred By: REFERRED SELF Confirmed By:Wyatt Soto
[2023-01-03] MEDS: WARFARIN SOD 7.5 MG TAB PO SCH (17:00)
[2023-01-03] MEDS: ATORVASTATIN 40 MG TAB PO SCH (21:07)
[2023-01-03] MEDS: LACTULOSE SYRUP 20 GM/30 ML UDC PO SCH (21:08)
--- NOTE | 2023-01-04 06:45 | Hospitalist Progress Note ---
Date of Service January 04, 2023 Assessment & Plan (1) Weakness: Plan: 77yo male returning to the ER with ongoing weakness, inability to care for himself at home. Also with a syncopal event and some mild chest discomfort prior to arrival which has since resolved. -continue to monitor on telemetry -Troponin downtrending -PT/OT recommending rehab -S/p 2L IVF on admission -Case Management helping with referal to [facility], if denies pt would like to return home with home PT (2) Psychogenic nonepileptic seizure: Plan: Chronic. 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 Rosa. Agree that patient would benefit from rehabilitation, physical therapy has evaluated patient and recommends inpatient rehabilitation, unfortunately insurance has not approved in past but hopeful that they will consider at this point. Discussed case with patient's son Eric, he encouraged patient to contact [facility] for concern of insurance plan difficulties. Primary team will submit [employer] form for driving concern. Patient will benefit from discussion of mental health and reconnection with therapist as he acknowledges increased feelings of grief of late (recent anniversary of 's passing 6 yrs ago), as well as depressive symptoms where he becomes more isolated, reduces his hydration and nutritional intake, which may be contributing to overall presentation as well. Haresh Mchughald doing well this morning. States that he feels big contributing factor leading up to this hospitalization was anniversary of his wives . Was not eating well. Review of Systems Review of Systems: As per above Physical Exam Physical Exam: Constitutional: well-appearing, no acute distress HEENT: NCAT, no conjunctival injection CV: regular rhythm, no murmur appreciated, extremities well-perfused, no LE ponce a Resp: CTABL, no wheezes/rales/rhonchi appreciated, no increased work of breathing MSK: no gross deformities appreciated Skin: warm, dry, no rash appreciated Neuro: alert, oriented, no focal neurologic deficit appreciated Results & Data Results & Data Vital Signs (Past 12 Hours) Vital Signs Temp Pulse Pulse Resp BP BP Pulse Ox 01/04/23 05:11 36.4 C L 70 18 126/77 98 01/03/23 23:46 76 01/03/23 23:15 36.5 C 71 18 137/72 92 01/03/23 19:15 36.7 C 72 16 120/66 91 O2 Del Method O2 Flow Rate 01/04/23 05:11 Nasal Cannula 2 01/03/23 23:46 01/03/23 23:15 Room Air 01/03/23 19:15 Room Air Resident Activity Tracking Resident Involvement: Resident Care Provided Care Provided: Adult Hospital Medicine
[2023-01-04 07:54] LABS: Basophils # (auto) 0.03 K/uL (0.00-0.20); Basophils % (auto) 0.8 %; Eosinophils # (auto) 0.17 K/uL (0.00-0.50); Eosinophils % (auto) 4.5 %; Hematocrit (blood only) 33.4 % (42.0-52.0); Hemoglobin 10.5 g/dl (14.0-18.0); Immature Granulocytes # (auto) 0.02 K/uL (0.01-0.20); Immature Granulocytes % (auto) 0.5 %; Lymphocytes # (auto) 0.95 K/uL (1.20-3.40); Lymphocytes % (auto) 25.1 %; Mean Corpuscular Hemoglobin 27.2 pg (25.0-34.0); Mean Corpuscular Hgb Conc 31.4 g/dL (32.0-36.0); Mean Corpuscular Volume 86.5 fL (80.0-100.0); Mean Platelet Volume 9.9 fL (9.4-12.4); Monocytes # (auto) 0.21 K/uL (0.11-0.59); Monocytes % (auto) 5.5 %; Neutrophils # (auto) 2.41 K/uL (1.40-6.50); Neutrophils % (auto) 63.6 %; Platelet Count 141 K/uL (130-400); RDW Coefficient of Variation 15.3 % (11.5-14.5); RDW Standard Deviation 48.5 fL (36.4-46.3); Red Blood Count 3.86 M/uL (4.70-6.10); White Blood Count 3.79 K/ul (4.8-10.8)
[2023-01-04 08:09] LABS: Albumin Globulin Ratio 1.5 (0.9-2); Albumin Level 3.4 gm/dl (3.4-5.0); BUN Creatinine Ratio 19.7 (10-20); Bilirubin,Total 0.4 mg/dl (0.2-1.0); Creatinine Clr Calc Pharmacy 59.5 ml/min; Est GFR (African American) 62.7 ml/min; Est GFR (Non-African American) 54.1 ml/min; Globulin 2.2 gm/dl (2.5-4.0); Potassium 4.1 mmol/L (3.5-5.1); Total Protein 5.6 gm/dl (6.0-8.3)
[2023-01-04 08:19] LABS: INR 2.4 (0.9-1.1); Prothrombin Time 25.1 Seconds (9.0-12.0)
[2023-01-04] MEDS: predniSONE 5 MG TAB PO SCH (09:21)
[2023-01-04] MEDS: FINASTERIDE 5 MG TAB PO SCH (09:23)
[2023-01-04] MEDS: FEXOFENADINE HCL 180 MG TAB PO SCH (09:24)
[2023-01-04] MEDS: ASPIRIN 81 MG ECTAB PO SCH (09:24)
[2023-01-04] MEDS: GABAPENTIN 300 MG CAP PO SCH ×2 (09:25→22:07)
[2023-01-04] MEDS: PANTOprazole 40 MG TAB PO SCH (09:29)
[2023-01-04] MEDS: CARBIDOPA/LEVODOPA 25/100MG TAB PO SCH ×4 (09:30→22:04)
[2023-01-04] MEDS: levETIRAcetam 500 MG TAB PO SCH ×2 (09:35→22:05)
[2023-01-04] MEDS: POLYETHYLENE (MIRALAX) 17 GM PACK PO SCH (09:36)
[2023-01-04] MEDS: SENNA 8.6 MG TAB PO SCH (09:37)
[2023-01-04] MEDS: TOPIRAMATE 100 MG TAB PO SCH ×2 (09:38→22:06)
[2023-01-04] MEDS: INSULIN ASPART PER UNIT CHARGE SC SCH ×5 (10:04→22:01)
[2023-01-04] MEDS: LANTUS PER UNIT CHARGE SQ SCH ×2 (10:06→22:02)
[2023-01-04] MEDS: UMECLIDINIUM/VILANTEROL 62.5/25MCG 7 PUFFS/INHALER INH SCH (10:07)
[2023-01-04] MEDS: FLUTICASONE FUROATE 100MCG 14 PUFFS/INHALER INH SCH (10:07)
[2023-01-04] MEDS: allopurinoL 100 MG TAB PO SCH (13:24)
[2023-01-04] MEDS ORDERED: WARFARIN SOD 5 MG TAB PO SCH (16:00)
[2023-01-04] MEDS: LACTULOSE SYRUP 20 GM/30 ML UDC PO SCH (22:05)
[2023-01-04] MEDS: ATORVASTATIN 40 MG TAB PO SCH (22:07)
[2023-01-05 07:00] LABS: Hematocrit (blood only) 31.8 % (42.0-52.0); Hemoglobin 10.2 g/dl (14.0-18.0); Mean Corpuscular Hemoglobin 27.4 pg (25.0-34.0); Mean Corpuscular Hgb Conc 32.1 g/dL (32.0-36.0); Mean Corpuscular Volume 85.5 fL (80.0-100.0); Mean Platelet Volume 10.1 fL (9.4-12.4); Platelet Count 127 K/uL (130-400); RDW Coefficient of Variation 15.1 % (11.5-14.5); RDW Standard Deviation 47.1 fL (36.4-46.3); Red Blood Count 3.72 M/uL (4.70-6.10)
[2023-01-05 07:20] LABS: INR 2.4 (0.9-1.1); Prothrombin Time 24.9 Seconds (9.0-12.0)
[2023-01-05 07:26] LABS: Albumin Globulin Ratio 1.4 (0.9-2); Albumin Level 3.3 gm/dl (3.4-5.0); BUN Creatinine Ratio 24.8 (10-20); Bilirubin,Total 0.3 mg/dl (0.2-1.0); Calcium 8.6 mg/dl (8.6-10.3); Creatinine Clr Calc Pharmacy 64.3 ml/min; Est GFR (African American) 69.3 ml/min; Est GFR (Non-African American) 59.8 ml/min; Globulin 2.3 gm/dl (2.5-4.0); Potassium 3.7 mmol/L (3.5-5.1); Total Protein 5.6 gm/dl (6.0-8.3)
[2023-01-05] MEDS: CARBIDOPA/LEVODOPA 25/100MG TAB PO SCH ×4 (09:12→20:38)
[2023-01-05] MEDS: levETIRAcetam 500 MG TAB PO SCH ×2 (09:12→20:38)
[2023-01-05] MEDS: ASPIRIN 81 MG ECTAB PO SCH (09:13)
[2023-01-05] MEDS: predniSONE 5 MG TAB PO SCH (09:13)
[2023-01-05] MEDS: SENNA 8.6 MG TAB PO SCH (09:13)
[2023-01-05] MEDS: GABAPENTIN 300 MG CAP PO SCH ×2 (09:13→20:38)
[2023-01-05] MEDS: FEXOFENADINE HCL 180 MG TAB PO SCH (09:13)
[2023-01-05] MEDS: TOPIRAMATE 100 MG TAB PO SCH ×2 (09:13→20:37)
[2023-01-05] MEDS: allopurinoL 100 MG TAB PO SCH (09:13)
[2023-01-05] MEDS: PANTOprazole 40 MG TAB PO SCH (09:13)
[2023-01-05] MEDS: POLYETHYLENE (MIRALAX) 17 GM PACK PO SCH (09:14)
[2023-01-05] MEDS: FINASTERIDE 5 MG TAB PO SCH (09:14)
[2023-01-05] MEDS: LANTUS PER UNIT CHARGE SQ SCH ×2 (09:20→20:36)
[2023-01-05] MEDS: INSULIN ASPART PER UNIT CHARGE SC SCH ×4 (09:20→20:36)
[2023-01-05] MEDS: DICLOFENAC SOD 1% GEL 100 GM TUBE EXT PRN ×2 (09:24→20:40)
[2023-01-05] MEDS: UMECLIDINIUM/VILANTEROL 62.5/25MCG 7 PUFFS/INHALER INH SCH (10:21)
[2023-01-05] MEDS: FLUTICASONE FUROATE 100MCG 14 PUFFS/INHALER INH SCH (10:21)
--- NOTE | 2023-01-05 13:42 | Hospitalist Progress Note ---
Date of Service January 05, 2023 Assessment & Plan (1) Weakness: Plan: 77yo male returning to the ER with ongoing weakness, inability to care for himself at home. Also with a syncopal event and some mild chest discomfort prior to arrival which has since resolved. -continue to monitor on telemetry -Troponin downtrending -PT/OT recommending rehab -S/p 2L IVF on admission -Case Management helping with referral to [facility], insurance auth is still pending (2) Psychogenic nonepileptic seizure: Plan: Chronic. No seizure activity at present -Continue Topiramate 100mg po BID -Continue Keppra 1000mg po BID - Concern for driving given weakness, history of seizures, states he had licence revoked for 6 months in the past by neurology. Report made to [facility] (3) Chest pain: Plan: No chest pain at present -Telemetry monitoring -Tropinin downtrending (4) Mechanical heart valve present: Plan: Patient with mechanical aortic valve on Coumadin anticoagulation - INR today is 2.4 - Goal 2.5-3.5 -Continue Coumadin -Continue to trend INR (5) Parkinsonism: Plan: Chronic, stable -Continue Carbidopa/Levodopa Admission and Anticipated Discharge Date Admission Date: January 04, 2023 Supervising Physician Co-Signing Physician Notes Attending attestation Pt seen and examined in concert with Dr. Rosa. In agreement with the documented findings as noted in the resident documentation with any exceptions or additions as noted here. In chair at bedside with c/o ongoing weakness stable to mildly improved from admission but otherwise without complaint. Patient is still precontemplative re: other SNF placement outside of [facility] for acute rehab, and continues to espouse that he would like that or home. We discussed that he has tried home repeatedly and not done well, resulting in repeated re-admission, and that he would likely result in the same state of health if he were to repeat that course. He expresses understanding of this issue. On examination, S1/S2 nl RRR no MCG. CTAB. Abd NT/ND BS+ve Weakness in the setting of deconditioning, parkinsonism with multiple hospital admissions - PT/OT - referral to [facility] pending. Goals of care reviewed. Continue levodopa/carbidopa PNES - continue topiramate and keppra Mechanical aortic valve on anticoagulation - INR as noted, continue warfarin Else see resident documentation as noted. Total attending physician time spent with this patient's care on this day: 40 minutes. Subjective Pt seen at bedside this morning. No new complaints. No events overnight. Discussed that pt would like to go to [facility] for rehab. Given that insurance has denied prior stays, discussed possibility of SNF if rehab denied and pt was adimate that he did not want to go to SNF. Review of Systems Review of Systems: As per above Physical Exam Physical Exam: Constitutional: well-appearing, no acute distress HEENT: NCAT, no conjunctival injection CV: regular rhythm, no murmur appreciated, extremities well-perfused, no LE edema Resp: CTABL, no wheezes/rales/rhonchi appreciated, no increased work of breathing MSK: no gross deformities appreciated Skin: warm, dry, no rash appreciated Neuro: alert, oriented, no focal neurologic deficit appreciated Results & Data Results & Data Vital Signs (Past 12 Hours) Vital Signs Temp Pulse Pulse Resp BP BP Pulse Ox 01/05/23 05:57 113/68 01/05/23 03:00 36.4 C L 61 18 94/54 L 93 01/04/23 22:42 65 01/04/23 22:00 36.6 C 70 18 99/52 L 91 O2 Del Method 01/05/23 05:57 01/05/23 03:00 Room Air 01/04/23 22:42 01/04/23 22:00 Room Air Resident Activity Tracking Resident Involvement: Resident Care Provided Care Provided: Adult Hospital Medicine
[2023-01-05] MEDS: WARFARIN SOD 7.5 MG TAB PO SCH (16:18)
[2023-01-05] MEDS: ATORVASTATIN 40 MG TAB PO SCH (20:37)
[2023-01-05] MEDS: LACTULOSE SYRUP 20 GM/30 ML UDC PO SCH (20:38)
--- NOTE | 2023-01-06 06:41 | Hospitalist Progress Note ---
Date of Service January 06, 2023 Assessment & Plan (1) Weakness: Plan: Pt is a 77 yo male with ongoing weakness and inability to care for himself at home. Pt also with a syncopal event and some mild chest discomfort prior to arrival which resolved by the time of arrival. Generalized weakness - continue to monitor on telemetry - PT/OT recommending rehab - case management helping with referral to [facility], insurance auth denied and peer to peer needs to be completed by Sunday at 12 PM (phone number: [phone], option 5) Upper respiratory symptoms - allergic vs. infectious - pt afebrile, w/o significant lung findings, and mild symptoms - recommend nasal saline rinses, incentive spirometer - consider CXR if symptoms worsen Psychogenic seizures - chronic; no seizure activity during this admission - continue topiramate 100mg PO BID, keppra 1000mg PO BID - concern for driving given weakness, history of seizures; states he had licence revoked for 6 months in the past by neurology; report made to [facility] Chest pain - no chest pain at present; EKG upon admission w/o signs of ischemia; troponin downtrended - pt did note "chest tightness" this AM- tele showed PVCs/PACs overnight - low suspicion for ACS, but will repeat EKG - continue telemetry monitoring Mechanical aortic valve in place - on chronic coumadin anticoagulation; goal INR 2.5-3.5 - continue to trend INR daily and adjust warfarin dosing PRN Parkinson's disease - chronic, stable - continue carbidopa/levodopa Diet: carb consistent Code: full DVT ppx: home warfarin Dispo: med/tele while admitted- requiring rehab for discharge; referral to [facility] denied- peer to peer pending (2) Psychogenic nonepileptic seizure: (3) Chest pain: (4) Mechanical heart valve present: (5) Parkinsonism: Admission and Anticipated Discharge Date Admission Date: January 04, 2023 Supervising Physician Co-Signing Physician Notes Attending attestation Pt seen and examined in concert with Dr. Rosa. In agreement with the documented findings as noted in the resident documentation with any exceptions or additions as noted here. In chair at bedside with c/o ongoing weakness. Now also c/o minimally productive intermittent cough with some nasal congestion without shortness of breath, fever. On examination, S1/S2 nl RRR no MCG. CTAB. Abd NT/ND BS+ve. No nasal erythema nor drainage apparent Cough - nl examination and without hemodynamic or laboratory changes. Continue to monitor, consider CXR with fever/worsening. Intranasal saline and incentive spirometry. Weakness in the setting of deconditioning, parkinsonism with multiple hospital admissions - PT/OT - referral to [facility] DENIED, patient aware. Pending P2P on Sunday. Pt continues to decline SNF. Continue levodopa/carbidopa PNES - continue topiramate and keppra Mechanical aortic valve on anticoagulation - INR as noted, decreased today likely 2/2 dosing regimen. Continue with daily monitoring and adjust if still subtherapeutic in AM Else see resident documentation as noted. Subjective Pt feeling well this AM. He does endorse a cough that he states started a few days ago. He is coughing up green/yellow mucous. He also endorses some chest/nasal congestion. He denies hemoptysis, N/V, fevers/chills, chest pain, and SOB. Review of Systems Review of Systems: As per HPI Physical Exam Physical Exam: Constitutional: well appearing, no acute distress HEENT: normocephalic, no conjunctival injection CV: regular rhythm, regular rate, no murmur Respiratory: Clear to auscultation bilaterally with decreased breath sounds in bilateral bases. No rhonchi, wheezes, or crackles. No increased work of breathing MSK: no gross deformities noted Skin: warm, dry, no rashes Neuro: alert, oriented, no FND noted Results & Data Results & Data Vital Signs (Past 12 Hours) Vital Signs Temp Pulse Pulse Resp BP Pulse Ox O2 Del Method 01/06/23 04:23 36.4 C L 68 20 99/59 L 99 Nasal Cannula 01/05/23 22:00 64 01/05/23 23:39 36.4 C L 55 L 20 122/61 98 Nasal Cannula 01/05/23 21:22 Room Air 01/05/23 19:59 36.2 C L 67 20 119/72 97 Room Air O2 Flow Rate 01/06/23 04:23 2 01/05/23 22:00 01/05/23 23:39 2 01/05/23 21:22 01/05/23 19:59 Resident Activity Tracking Resident Involvement: Resident Care Provided Care Provided: Adult Hospital Medicine
[2023-01-06 06:57] LABS: Hemoglobin 10.7 g/dl (14.0-18.0); Mean Corpuscular Hemoglobin 27.2 pg (25.0-34.0); Mean Corpuscular Hgb Conc 31.5 g/dL (32.0-36.0); Mean Corpuscular Volume 86.3 fL (80.0-100.0); Mean Platelet Volume 9.5 fL (9.4-12.4); Platelet Count 142 K/uL (130-400); RDW Coefficient of Variation 15.2 % (11.5-14.5); RDW Standard Deviation 48.2 fL (36.4-46.3); Red Blood Count 3.94 M/uL (4.70-6.10); White Blood Count 3.87 K/ul (4.8-10.8)
[2023-01-06 07:17] LABS: BUN Creatinine Ratio 26.2 (10-20); Calcium 8.9 mg/dl (8.6-10.3); Creatinine Clr Calc Pharmacy 70.9 ml/min; Est GFR (African American) 77.2 ml/min; Est GFR (Non-African American) 66.6 ml/min; Magnesium 1.9 mg/dl (1.7-2.4); Potassium 3.8 mmol/L (3.5-5.1)
[2023-01-06 07:26] LABS: INR 2.1 (0.9-1.1); Prothrombin Time 21.9 Seconds (9.0-12.0)
[2023-01-06] MEDS: FLUTICASONE FUROATE 100MCG 14 PUFFS/INHALER INH SCH (08:11)
[2023-01-06] MEDS: GABAPENTIN 300 MG CAP PO SCH ×2 (08:11→21:01)
[2023-01-06] MEDS: FEXOFENADINE HCL 180 MG TAB PO SCH (08:11)
[2023-01-06] MEDS: ASPIRIN 81 MG ECTAB PO SCH (08:11)
[2023-01-06] MEDS: allopurinoL 100 MG TAB PO SCH (08:11)
[2023-01-06] MEDS: UMECLIDINIUM/VILANTEROL 62.5/25MCG 7 PUFFS/INHALER INH SCH (08:11)
[2023-01-06] MEDS: FINASTERIDE 5 MG TAB PO SCH (08:11)
[2023-01-06] MEDS: POLYETHYLENE (MIRALAX) 17 GM PACK PO SCH (08:12)
[2023-01-06] MEDS: predniSONE 5 MG TAB PO SCH (08:12)
[2023-01-06] MEDS: SENNA 8.6 MG TAB PO SCH (08:12)
[2023-01-06] MEDS: levETIRAcetam 500 MG TAB PO SCH ×2 (08:12→21:01)
[2023-01-06] MEDS: TOPIRAMATE 100 MG TAB PO SCH ×2 (08:12→21:01)
[2023-01-06] MEDS: CARBIDOPA/LEVODOPA 25/100MG TAB PO SCH ×4 (08:12→21:01)
[2023-01-06] MEDS: PANTOprazole 40 MG TAB PO SCH (08:13)
[2023-01-06] MEDS: LANTUS PER UNIT CHARGE SQ SCH ×2 (09:09→21:02)
[2023-01-06] MEDS: INSULIN ASPART PER UNIT CHARGE SC SCH ×4 (09:09→21:02)
[2023-01-06] MEDS ORDERED: SODIUM CHLORIDE 0.65% NA SOLN 45 ML (OCEAN) PRN (11:08)
[2023-01-06] MEDS ORDERED: DICLOFENAC SOD 1% GEL 100 GM TUBE EXT PRN (12:24)
[2023-01-06] MEDS: WARFARIN SOD 7.5 MG TAB PO SCH (16:32)
[2023-01-06] MEDS: ATORVASTATIN 40 MG TAB PO SCH (21:01)
[2023-01-06] MEDS: LACTULOSE SYRUP 20 GM/30 ML UDC PO SCH (21:01)
[2023-01-06] MEDS: DICLOFENAC SOD 1% GEL 100 GM TUBE EXT PRN (21:02)
[2023-01-07 06:40] LABS: Hematocrit (blood only) 31.2 % (42.0-52.0); Hemoglobin 9.9 g/dl (14.0-18.0); Mean Corpuscular Hemoglobin 27.2 pg (25.0-34.0); Mean Corpuscular Hgb Conc 31.7 g/dL (32.0-36.0); Mean Corpuscular Volume 85.7 fL (80.0-100.0); Mean Platelet Volume 10.4 fL (9.4-12.4); Platelet Count 129 K/uL (130-400); RDW Coefficient of Variation 15.4 % (11.5-14.5); RDW Standard Deviation 47.8 fL (36.4-46.3); Red Blood Count 3.64 M/uL (4.70-6.10); White Blood Count 3.45 K/ul (4.8-10.8)
--- NOTE | 2023-01-07 06:45 | Hospitalist Progress Note ---
Date of Service January 07, 2023 Assessment & Plan (1) Weakness: Plan: Pt is a 77 yo male with ongoing weakness and inability to care for himself at home. Pt also with a syncopal event and some mild chest discomfort prior to arrival which resolved by the time of arrival. Generalized weakness - continue to monitor on telemetry - PT/OT recommending rehab - case management helping with referral to [facility], insurance auth denied and peer to peer needs to be completed by Sunday at 12 PM (phone number: [phone], option 5) Upper respiratory symptoms - allergic vs. infectious - pt afebrile, w/o significant lung findings, and mild symptoms - recommend nasal saline rinses, incentive spirometer - consider CXR if symptoms worsen Psychogenic seizures - chronic; no seizure activity during this admission - continue topiramate 100mg PO BID, keppra 1000mg PO BID - concern for driving given weakness, history of seizures; states he had licence revoked for 6 months in the past by neurology; report made to [facility] Chest pain - no chest pain at present; EKG upon admission w/o signs of ischemia; troponin downtrended - pt did note "chest tightness" this AM- tele showed PVCs/PACs overnight - low suspicion for ACS, but will repeat EKG - continue telemetry monitoring Mechanical aortic valve in place - on chronic coumadin anticoagulation; goal INR 2.5-3.5 - continue to trend INR daily and adjust warfarin dosing PRN Parkinson's disease - chronic, stable - continue carbidopa/levodopa Diet: carb consistent Code: full DVT ppx: home warfarin Dispo: med/tele while admitted- requiring rehab for discharge; referral to [facility] denied- peer to peer pending (2) Psychogenic nonepileptic seizure: (3) Chest pain: (4) Mechanical heart valve present: (5) Parkinsonism: Admission and Anticipated Discharge Date Admission Date: January 04, 2023 Results & Data Results & Data Vital Signs (Past 12 Hours) Vital Signs Temp Pulse Pulse Resp BP Pulse Ox O2 Del Method 01/07/23 02:42 36.5 C 59 L 16 102/60 100 Nasal Cannula 01/06/23 22:50 36.5 C 65 16 103/52 L 96 Nasal Cannula 01/06/23 22:00 61 01/06/23 23:54 Nasal Cannula 01/06/23 19:08 36.3 C L 62 18 108/66 99 Room Air O2 Flow Rate 01/07/23 02:42 2 01/06/23 22:50 2 01/06/23 22:00 01/06/23 23:54 2 01/06/23 19:08 Resident Activity Tracking Resident Involvement: Resident Care Provided Care Provided: Adult Hospital Medicine
[2023-01-07 06:59] LABS: INR 2.3 (0.9-1.1); Prothrombin Time 23.5 Seconds (9.0-12.0)
[2023-01-07] MEDS: FLUTICASONE FUROATE 100MCG 14 PUFFS/INHALER INH SCH (08:34)
[2023-01-07] MEDS: PANTOprazole 40 MG TAB PO SCH (08:34)
[2023-01-07] MEDS: ASPIRIN 81 MG ECTAB PO SCH (08:34)
[2023-01-07] MEDS: UMECLIDINIUM/VILANTEROL 62.5/25MCG 7 PUFFS/INHALER INH SCH (08:34)
[2023-01-07] MEDS: SENNA 8.6 MG TAB PO SCH (08:34)
[2023-01-07] MEDS: predniSONE 5 MG TAB PO SCH (08:34)
[2023-01-07] MEDS: allopurinoL 100 MG TAB PO SCH (08:34)
[2023-01-07] MEDS: FEXOFENADINE HCL 180 MG TAB PO SCH (08:35)
[2023-01-07] MEDS: CARBIDOPA/LEVODOPA 25/100MG TAB PO SCH ×2 (08:35→13:08)
[2023-01-07] MEDS: FINASTERIDE 5 MG TAB PO SCH (08:35)
[2023-01-07] MEDS: TOPIRAMATE 100 MG TAB PO SCH (08:35)
[2023-01-07] MEDS: GABAPENTIN 300 MG CAP PO SCH (08:35)
[2023-01-07] MEDS: POLYETHYLENE (MIRALAX) 17 GM PACK PO SCH (08:36)
[2023-01-07] MEDS: DICLOFENAC SOD 1% GEL 100 GM TUBE EXT PRN (08:36)
[2023-01-07] MEDS: levETIRAcetam 500 MG TAB PO SCH (08:36)
[2023-01-07] MEDS: INSULIN ASPART PER UNIT CHARGE SC SCH ×2 (09:13→13:11)
[2023-01-07] MEDS: LANTUS PER UNIT CHARGE SQ SCH (09:13)
--- NOTE | 2023-01-07 14:21 | Discharge Summary ---
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 Patient was recently admitted to [facility] from 12/20/22 - 12/25/22 after presenting with seizure-like activity. Patient was discharged home with home PT twice weekly. He has had one PT session since returning home but is not happy with his progress. He has been feeling very weak at home; unable to care for himself. [place] He reports poor appetite and decreased oral intake. He was seen by his PCP today with the complaint of ongoing weakness. He was instructed to come to the ER. He parked very far away and was unable to walk to the front door of the ER so he just went home. He returns to the ER now. He also reports some chest discomfort and a syncopal event prior to arrival. Afebrile, HD stable Admission Exam Per Admitting Provider General: patient resting comfortably, NAD, non-toxic in appearance, AA&O x 4 Skin: warm, dry, intact, no rashes or lesions HEENT: NC/AT, PERRL, EOMI, anicteric sclera, conjunctiva without injection, external ear normal to inspection and nontender, nares patent, moist mucus membranes, dentition intact, no oropharyngeal lesions, neck supple, trachea midline, no LAD, no thyromegaly, no JVD Heart: +S1/S2, regular, no m/r/g Lungs: equal air entry bilaterally, no rales/rhonchi/wheezes Abd: +BS, soft, NT/ND, no masses/organomegaly/ascites Ext: warm, 2+ pulses in UE/LE bilaterally, no clubbing/cyanosis or edema Neuro: nonfocal, patient AA&O x 4, speech intact, no facial droop, moving all extremities on command with equal strength 5/5 Principal Diagnosis FTT, syncope, generalized weakness Discharge Exam Constitutional: well appearing, no acute distress HEENT: normocephalic, no conjunctival injection CV: regular rhythm, regular rate, no murmur, no LE edema Respiratory: Clear to auscultation bilaterally. No rhonchi, wheezes, or crackles. No increased work of breathing MSK: no gross deformities noted Skin: warm, dry, no rashes Neuro: alert, oriented, no FND noted Discharge Data Allergies Allergy/AdvReac Type Severity Reaction Status Date / Time bee venom protein (honey bee) Allergy Severe anaphylaxis Verified 01/02/23 18:00 Iodinated Contrast Media Allergy Severe Anaphylaxis Verified 01/02/23 18:00 shellfish derived Allergy Severe Anaphylaxis Verified 01/02/23 18:00 doxazosin Allergy Intermediate Rash Verified 01/02/23 18:00 tamsulosin [From Flomax] Allergy Intermediate Itching Verified 01/02/23 18:00 Tetanus Vaccines and Toxoid Allergy Unknown Unknown Verified 01/02/23 18:00 lamotrigine AdvReac Intermediate Confusion Verified 01/02/23 18:00 oxycodone [From Percocet] AdvReac Intermediate nausea/vomi Verified 01/02/23 18:00 ting propoxyphene [From Darvon] AdvReac Intermediate nausea/vomi Verified 01/02/23 18:00 ting Consultations 01/02/23 21:01 ED Decision to Admit Stat Ordered Studies 01/02/23 17:19 CT cervical spine wo con Stat IMPRESSION: No acute traumatic abnormality. CT head/brain wo con Stat IMPRESSION: 1. No acute intracranial abnormality. 2. Chronic small vessel ischemic changes and cerebral volume loss. Hospital Course (1) Weakness: Pt is a 77 yo male with ongoing weakness and inability to care for himself at home. Pt also with a syncopal event and some mild chest discomfort prior to arrival which resolved by the time of arrival. Generalized weakness - PT/OT recommended rehab; [facility] denied by insurance - discussed SNF as an option for pt but he refuses; stressed to pt the need for rehab/SNF services but pt opted to return home under his own care - physical outpatient PT script provided to pt upon discharge Upper respiratory symptoms - allergic vs. infectious; improvement prior to discharge after nasal saline and incentive spirometer Psychogenic seizures - chronic; no seizure activity during this admission - continue topiramate 100mg PO BID, keppra 1000mg PO BID upon discharge - concern for driving given weakness, history of seizures; states he had licence revoked for 6 months in the past by neurology[facility] - no chest pain at present; EKG upon admission w/o signs of ischemia; troponin downtrended - pt did note "chest tightness" throughout admission; tele showed intermittent PVCs/PACs - low suspicion for ACS Mechanical aortic valve in place - on chronic coumadin anticoagulation; goal INR 2.5-3.5 - continue outpatient management/dosage Parkinson's disease - chronic, stable - continue carbidopa/levodopa Diet: carb consistent Code: full DVT ppx: home warfarin Dispo: med/tele while admitted- recommended rehab for discharge; referral to [facility] denied; pt opting to be discharged home instead of SNF (2) Psychogenic nonepileptic seizure: (3) Chest pain: (4) Mechanical heart valve present: (5) Parkinsonism: Total Time Total Time Spent Total Time Spent (In Minutes): as per attending attestation Discharge Plan Discharge Items Patient Disposition: Home - Self-Care Reason For Visit: SYNCOPE Discharge Diagnosis: syncope, generalized weakness, FTT Activity: Per Instructions section Non-emergency contact: Primary Care Provider Call non-emergency contact if: you have any medication questions and your symptoms worsen Follow-up/Referrals: Tan Hammond DO [Primary Care Provider] - (PLEASE CALL YOUR PRIMARY CARE PROVIDER TO SCHEDULE A HOSPITAL DISCHARGE FOLLOW-UP APPOINTMENT WITHIN 7-10 DAYS) Diet: Carb Consistent or DM2 Addtl Attending Provider Instructions: You were admitted to the hospital for weakness and inability to care for yourself at home. It was recommended that you go to rehab/nursing facility for further care to improve your strength; however, insurance denied an inpatient rehab stay. You did not want to go to a correction facility and opted to be discharged back home under your own care. A new physical script was provided to you for outpatient physical therapy. A discharge summary will be sent to your primary care physician to ensure continuity of care. Please bring this discharge summary with you to your next office appointment so that your provider can review it at that time. Medications: Your medication list has been reviewed and reconciled upon discharge to ensure accuracy and continuity of care. An updated list of all your medications is included with your hospital discharge paperwork. Please review this list closely and make note of any changes to your medications. - No medication changes. Follow up appointments: - Make a follow up appointment with your PCP within the next week. It is very important that you follow up with them shortly after discharge from the hospital. - Keep all of your follow up appointments as already scheduled. If you cannot make an appointment, notify your provider. CONTACT YOUR PRIMARY CARE PROVIDER if you experience any of the following: - Difficulty following your treatment plan - Difficulty taking any of your medications CALL 911 OR GO TO THE EMERGENCY DEPARTMENT if you experience any of the following: - Sudden, severe abdominal pain or nausea/vomiting - Severe chest pain or chest pain that radiates to your jaw or arm - Sudden, severe shortness of breath or difficulty breathing Pending Studies at Discharge: No Stand-Alone Forms: My [facility], Smoking Cessation Medications and DC Order Prescriptions: Continued Trelegy Ellipta 100-62.5-25 mcg blister with device 1 inh inhalation QAM Qty: 60 5RF levetiracetam [Keppra] 500 mg tablet 1,000 mg PO BID Qty: 360 3RF Rx Instructions: PER EXT MED HX cholecalciferol (vitamin D3) [Vitamin D3] 50 mcg (2,000 unit) capsule 4,000 unit PO HS atorvastatin 40 mg tablet 40 mg PO HS fexofenadine [Karlee Allergy] 180 mg Tablet 180 mg PO QAM acetaminophen 325 mg Tablet 650 mg PO Q4H PRN (Reason: pain) Qty: 30 0RF Rx Instructions: OTC albuterol sulfate [Ventolin HFA] 90 mcg/actuation HFA aerosol inhaler 2 puff INHALATION Q4H PRN (Reason: Shortness Of Breath Or Wheezing) diclofenac sodium [Voltaren Arthritis Pain] 1 % Gel 2 g TOPICAL TID PRN (Reason: Pain) Rx Instructions: left knee ferrous sulfate 325 mg (65 mg iron) Tablet,Delayed Release (Dr/Ec) 325 mg PO QAM Qty: 30 0RF Rx Instructions: NOT ON THE [place] MED LIST prednisone 5 mg Tablet 5 mg PO QAM gabapentin 300 mg capsule See Rx Instructions .ROUTE .COMPLEX Rx Instructions: TAKES 600 MG QAM, THEN 300 MG QPM. PER EXT MED HX. pantoprazole [Protonix] 20 mg Tablet,Delayed Release (Dr/Ec) 20 mg PO QAM Rx Instructions: NOT ON THE [place] MED LIST potassium chloride 20 mEq Tablet Extended Release 20 meq PO HS Rx Instructions: NOT ON THE [place] LIST cyanocobalamin (vitamin B-12) [Vitamin B-12] 1,000 mcg Tablet Extended Release 1,000 mcg PO QAM Rx Instructions: NOT ON THE [place] MED LIST magnesium 250 mg Tablet 250 mg PO QAM Rx Instructions: NOT ON THE COUNTS INCLUDE 234 BEDS AT THE [facility] LIST ondansetron 4 mg tablet,disintegrating 4 mg PO Q6H PRN (Reason: nausea and vomiting) Qty: 30 0RF Rx Instructions: NOT ON THE COUNTS INCLUDE 234 BEDS AT THE [facility] LIST Trulicity 1.5 mg/0.5 mL pen injector 1.5 mg SUBCUT WK Rx Instructions: FRIDAYS PER EXT MED HX, NOT ON THE [facility] LIST tramadol 50 mg tablet 50 mg PO Q6H PRN (Reason: pain, moderate) Qty: 15 0RF Rx Instructions: PER EXT MED HX warfarin 5 mg tablet 5 - 7.5 mg PO DIRECTED Qty: 30 0RF Rx Instructions: Take according to anticoagulation clinic. 5mg on Sunday/. 7.5mg on Sunday, Sunday, Sunday, Sunday, Sunday. aspirin 81 mg Tablet,Delayed Release (Dr/Ec) 81 mg PO DAILY finasteride 5 mg tablet 5 mg PO QAM carbidopa-levodopa [Sinemet] 25-100 mg tablet 1 tab PO QID allopurinol 100 mg tablet 100 mg PO DAILY insulin glargine [Lantus Solostar U-100 Insulin] 100 unit/mL (3 mL) insulin pen 20 unit SUBCUT BID polyethylene glycol 3350 [Miralax] 17 gram/dose powder 17 g PO QAM furosemide 20 mg tablet 20 mg PO QAM sennosides [Senokot] 8.6 mg tablet 8.6 mg PO QAM insulin aspart U-100 [Novolog FlexPen U-100 Insulin] 100 unit/mL (3 mL) insulin pen 1 sliding scale dose subcut ACHS Rx Instructions: supplemental scale for meal-time coverage and bed-time coverage. topiramate 100 mg tablet 100 mg PO BID Saline Mist 0.65 % aerosol,spray 2 spray intranasal QID PRN (Reason: DRYNESS) Rx Instructions: NOT ON THE [facility] LIST lactulose 20 gram/30 mL solution 20 g PO PM Discharge Orders: Discharge Order (Routine); Ordered 01/07/23 Ordered By: Kendal Leon Admission Data Admit Date/Time: 01/04/23 14:08 Attending Provider: Cody Park Admit Provider: Ana Dong Primary Care Provider: Buza,Tan M. [facility] ; Ana Dong Other Interventions: Discharge Summary Assessment (RN) Last Done: 01/07/23 14:40 Supervising Physician Co-Signing Physician Notes Attending attestation Pt seen and examined in concert with Dr. Leon. In agreement with the documented findings as noted in the resident documentation with any exceptions or additions as noted here. In chair at bedside with c/o ongoing weakness improved from admission. Resolution of interval congestion/cough. On examination, S1/S2 nl RRR no MCG. CTAB. Abd NT/ND BS+ve. No nasal erythema nor drainage apparent Weakness in the setting of deconditioning, parkinsonism with multiple hospital admissions - PT/OT - referral to [facility] DENIED, patient continues to decline SNF placement and declines continued admission until P2P completed despite care team conversations. Reviewed goals of care and patient presents adequate understanding of the potential consequences of discharge with available level of support. Open to ongoing PT support. Continue levodopa/carbidopa. PNES - continue topiramate and keppra Mechanical aortic valve on anticoagulation - resume outpatient INR management and continue outpatient warfarin. Else see resident documentation as noted. Total attending physician time spent with this patient's care on the day of discharge: 40 minutes. Resident Activity Tracking Resident Involvement: Resident Care Provided Care Provided: Adult Hospital Medicine
[2023-01-07] MEDS: WARFARIN SOD 7.5 MG TAB PO SCH (15:36)
== END 2023-01-07 15:41 | disposition home or self-care (01) | DRG 948 ==
LOC: EDINP 17:08 → ED 17:08 → SUATTDRO 21:35 → EDINP 22:43 → 2N 01-03 15:28 → SUATTDRO 01-04 14:08